=== PATIENT | female | born 1945 | race American Indian/Alaskan Native ===

== ENCOUNTER 2016-05-07 09:58 | Outpatient (CLI) | payer MEDICARE ==
[2016-05-07] MEDS ORDERED: XYLOCAINE TOPICAL 4% TP ONE (11:46)
== END 2016-05-07 09:59 | disposition home or self-care (01) ==
LOC: WOUND 09:58
PROVIDERS: ATTEND Orthopaedic Surgery
DX: E11.621 Type 2 diabetes mellitus with foot ulcer (principal); I87.312 Chronic venous hypertension (idiopathic) with ulcer of left lower extremity; L97.521 Non-pressure chronic ulcer of other part of left foot limited to breakdown of skin; L97.821 Non-pressure chronic ulcer of other part of left lower leg limited to breakdown of skin; F32.9 Major depressive disorder, single episode, unspecified; I10 Essential (primary) hypertension; M19.90 Unspecified osteoarthritis, unspecified site; Z86.718 Personal history of other venous thrombosis and embolism; Z87.891 Personal history of nicotine dependence
CPT/HCPCS: 82962; 87075; 87076; 87116; 87186

== ENCOUNTER 2016-05-11 13:02 | Emergency (ER) | payer MEDICARE ==
[2016-05-11 13:26] VITALS: BP 141/82
--- NOTE | 2016-05-11 15:32 | Emergency Department Report ---
ED ENT HPI - General Chief complaint: Sore Throat Stated complaint: SORE THROAT,SINUS Time Seen by Provider: 05/11/16 15:26 Source: patient Mode of arrival: Ambulatory Limitations: Physical Limitation - History of Present Illness Initial comments: 71 y/o female complain of sore throat from sinus drainage .pt state she constant has to clear her thought and cough when she lie down . complaint: sore throat Onset/Timin -: days(s) Location: throat Severity: mild Severity scale (0 -10): 3 Quality: aching Consistency: intermittent Improves with: none Worsens with: other (coughing ) - Related Data Home Medications Medication Instructions Recorded Confirmed Last Taken Allopurinol [Zyloprim] 300 mg ONCE 06/30/13 06/30/13 06/27/13 HYDROcodone/APAP 10-325 [[place] 500 mg PRN 06/30/13 06/30/13 06/29/13 10-325 mg TAB] Naproxen [Naprosyn] 500 mg PRN 06/30/13 06/30/13 06/29/13 Potassium Gluconate [Potassium 500 mg ONCE 06/30/13 06/30/13 06/27/13 Gluconate] Trazodone HCl [Trazodone HCl] 150 mg ONCE 06/30/13 06/30/13 06/28/13 Valsartan/Hydrochlorothiazide 5 mg ONCE 06/30/13 06/30/13 06/28/13 [Valsartan-Hctz 80-12.5 mg] Warfarin [Coumadin] 5 mg PO ONCE 06/30/13 06/30/13 06/26/13 glipiZIDE [glipiZIDE ER] 5 mg ONCE 06/30/13 06/30/13 06/28/13 Previous Rx's Medication Instructions Recorded Last Taken Type Naproxen [Naprosyn] 500 mg PO BID #30 tablet 09/27/13 Unknown Rx methOCARBAMOL [Robaxin] 500 mg PO BID #30 tab 09/27/13 Unknown Rx traMADol [Ultram 50 MG tab] 50 mg PO Q6HR PRN #20 tablet 09/27/13 Unknown Rx Amoxicillin/K Clav Tab [Augmentin 1 tab PO Q12HR #14 tab 05/11/16 Unknown Rx 875 mg] Allergies Allergy/AdvReac Type Severity Reaction Status Date / Time No Known Allergies Allergy Unverified 01/10/13 12:02 ED Dental HPI - General Chief complaint: Sore Throat Stated complaint: SORE THROAT,SINUS Time Seen by Provider: 05/11/16 15:26 Source: patient Mode of arrival: Ambulatory Limitations: Physical Limitation - Related Data Home Medications Medication Instructions Recorded Confirmed Last Taken Allopurinol [Zyloprim] 300 mg ONCE 06/30/13 06/30/13 06/27/13 HYDROcodone/APAP 10-325 [[place] 500 mg PRN 06/30/13 06/30/13 06/29/13 10-325 mg TAB] Naproxen [Naprosyn] 500 mg PRN 06/30/13 06/30/13 06/29/13 Potassium Gluconate [Potassium 500 mg ONCE 06/30/13 06/30/13 06/27/13 Gluconate] Trazodone HCl [Trazodone HCl] 150 mg ONCE 06/30/13 06/30/13 06/28/13 Valsartan/Hydrochlorothiazide 5 mg ONCE 06/30/13 06/30/13 06/28/13 [Valsartan-Hctz 80-12.5 mg] Warfarin [Coumadin] 5 mg PO ONCE 06/30/13 06/30/13 06/26/13 glipiZIDE [glipiZIDE ER] 5 mg ONCE 06/30/13 06/30/13 06/28/13 Previous Rx's Medication Instructions Recorded Last Taken Type Naproxen [Naprosyn] 500 mg PO BID #30 tablet 09/27/13 Unknown Rx methOCARBAMOL [Robaxin] 500 mg PO BID #30 tab 09/27/13 Unknown Rx traMADol [Ultram 50 MG tab] 50 mg PO Q6HR PRN #20 tablet 09/27/13 Unknown Rx Amoxicillin/K Clav Tab [Augmentin 1 tab PO Q12HR #14 tab 05/11/16 Unknown Rx 875 mg] Allergies Allergy/AdvReac Type Severity Reaction Status Date / Time No Known Allergies Allergy Unverified 01/10/13 12:02 ED Review of Systems ROS: Stated complaint: SORE THROAT,SINUS Other details as noted in HPI Constitutional: denies: chills, fever Eyes: denies: eye pain, eye discharge, vision change ENT: throat pain. denies: ear pain Respiratory: denies: cough, shortness of breath, wheezing Cardiovascular: denies: chest pain, palpitations Endocrine: no symptoms reported Gastrointestinal: denies: abdominal pain, nausea, diarrhea Genitourinary: denies: urgency, dysuria, discharge Musculoskeletal: denies: back pain, joint swelling, arthralgia Skin: denies: rash, lesions Neurological: denies: headache, weakness, paresthesias Psychiatric: denies: anxiety, depression Hematological/Lymphatic: denies: easy bleeding, easy bruising ED Past Medical Hx - Past Medical History Previous Medical History?: Yes Hx Hypertension: Yes Hx Diabetes: Yes (TYPE 2) - Surgical History Past Surgical History?: Yes Additional Surgical History: hysterectomy - Social History Smoking Status: Never Smoker Substance Use Type: Prescribed - Medications Home Medications: Home Medications Medication Instructions Recorded Confirmed Last Taken Type Allopurinol [Zyloprim] 300 mg ONCE 06/30/13 06/30/13 06/27/13 History HYDROcodone/APAP 10-325 [[place] 500 mg PRN 06/30/13 06/30/13 06/29/13 History 10-325 mg TAB] Naproxen [Naprosyn] 500 mg PRN 06/30/13 06/30/13 06/29/13 History Potassium Gluconate [Potassium 500 mg ONCE 06/30/13 06/30/13 06/27/13 History Gluconate] Trazodone HCl [Trazodone HCl] 150 mg ONCE 06/30/13 06/30/13 06/28/13 History Valsartan/Hydrochlorothiazide 5 mg ONCE 06/30/13 06/30/13 06/28/13 History [Valsartan-Hctz 80-12.5 mg] Warfarin [Coumadin] 5 mg PO ONCE 06/30/13 06/30/13 06/26/13 History glipiZIDE [glipiZIDE ER] 5 mg ONCE 06/30/13 06/30/13 06/28/13 History Naproxen [Naprosyn] 500 mg PO BID #30 tablet 09/27/13 Unknown Rx methOCARBAMOL [Robaxin] 500 mg PO BID #30 tab 09/27/13 Unknown Rx traMADol [Ultram 50 MG tab] 50 mg PO Q6HR PRN #20 tablet 09/27/13 Unknown Rx Amoxicillin/K Clav Tab [Augmentin 1 tab PO Q12HR #14 tab 05/11/16 Unknown Rx 875 mg] ED Physical Exam - General Limitations: Physical Limitation General appearance: alert, in no apparent distress - Head Head exam: Present: atraumatic, normocephalic - Eye Eye exam: Present: normal appearance, PERRL - ENT ENT exam: Present: mucous membranes moist - Expanded ENT Exam Expanded Ear exam: Present: normal external inspection TM/Canal exam: Mastoid Tenderness: Right TM, Left TM (maxillary ) Mouth exam: Present: normal external inspection. Absent: drooling, trismus, muffled voice Throat exam: Positive: other (post nasal drip ) - Neck Neck exam: Present: normal inspection - Respiratory Respiratory exam: Present: normal lung sounds bilaterally. Absent: respiratory distress, wheezes, rales - Cardiovascular Cardiovascular Exam: Present: regular rate, normal rhythm. Absent: systolic murmur, diastolic murmur, rubs, gallop - GI/Abdominal GI/Abdominal exam: Present: soft, normal bowel sounds - Extremities Exam Extremities exam: Present: normal inspection - Back Exam Back exam: Present: normal inspection, full ROM. Absent: tenderness, CVA tenderness (R), CVA tenderness (L), muscle spasm - Neurological Exam Neurological exam: Present: alert, oriented X3 - Psychiatric Psychiatric exam: Present: normal affect, normal mood - Skin Skin exam: Present: warm, dry, intact, normal color. Absent: rash ED Course Vital Signs 05/11/16 13:22 Temperature 97.8 F Pulse Rate 112 H Respiratory 20 Rate Blood Pressure 141/82 O2 Sat by Pulse 99 Oximetry ED Medical Decision Making - Medical Decision Making sinusitis Critical care attestation.: If time is entered above; I have spent that time in minutes in the direct care of this critically ill patient, excluding procedure time. ED Disposition Clinical Impression: Sinusitis Qualifiers: Sinusitis location: maxillary Chronicity: acute Recurrence: recurrent Qualified Code(s): J01.01 - Acute recurrent maxillary sinusitis Disposition: DISCHARGED TO HOME OR SELFCARE Is pt being admited?: No Does the pt Need Aspirin: No Condition: Stable Instructions: Sinusitis (ED) Prescriptions: Amoxicillin/K Clav Tab [Augmentin 875 mg] 1 tab PO Q12HR #14 tab Time of Disposition: 15:35
== END 2016-05-11 15:51 | disposition home or self-care (01) ==
LOC: ED 13:02
DX: J01.01 Acute recurrent maxillary sinusitis (principal); I10 Essential (primary) hypertension; E11.9 Type 2 diabetes mellitus without complications
CPT/HCPCS: 99282

== ENCOUNTER 2016-05-14 09:23 | Outpatient (CLI) | payer MEDICARE ==
[2016-05-14] MEDS ORDERED: XYLOCAINE TOPICAL 2% ONE (09:32)
[2016-05-14] MEDS ORDERED: SILVER NITRATE TP ONE ×3 (09:58→17:00)
[2016-05-14] MEDS ORDERED: XYLOCAINE TOPICAL 4% TP ONE (15:35)
[2016-05-14] MEDS ORDERED: XYLOCAINE TOPICAL 2% TP ONE (17:00)
== END 2016-05-14 09:24 | disposition home or self-care (01) ==
LOC: WOUND 09:23
PROVIDERS: ATTEND Orthopaedic Surgery
DX: E11.622 Type 2 diabetes mellitus with other skin ulcer (principal); L97.921 Non-pressure chronic ulcer of unspecified part of left lower leg limited to breakdown of skin; L97.521 Non-pressure chronic ulcer of other part of left foot limited to breakdown of skin; I10 Essential (primary) hypertension; M19.90 Unspecified osteoarthritis, unspecified site; F32.9 Major depressive disorder, single episode, unspecified; Z86.718 Personal history of other venous thrombosis and embolism; Z87.891 Personal history of nicotine dependence
CPT/HCPCS: 17250

== ENCOUNTER 2016-05-21 10:52 | Outpatient (CLI) | payer MEDICARE ==
[2016-05-21] MEDS ORDERED: XYLOCAINE TOPICAL 2% TP ONE ×2 (11:04→12:22)
[2016-05-21] MEDS ORDERED: XYLOCAINE TOPICAL 2% ONE ×2 (11:18→11:25)
== END 2016-05-21 10:53 | disposition home or self-care (01) ==
LOC: WOUND 10:52
PROVIDERS: ATTEND Orthopaedic Surgery
DX: E11.621 Type 2 diabetes mellitus with foot ulcer (principal); I87.312 Chronic venous hypertension (idiopathic) with ulcer of left lower extremity; L97.821 Non-pressure chronic ulcer of other part of left lower leg limited to breakdown of skin; L97.521 Non-pressure chronic ulcer of other part of left foot limited to breakdown of skin; I10 Essential (primary) hypertension; M19.90 Unspecified osteoarthritis, unspecified site; Z86.718 Personal history of other venous thrombosis and embolism; F32.9 Major depressive disorder, single episode, unspecified; Z87.891 Personal history of nicotine dependence
CPT/HCPCS: 29580

== ENCOUNTER 2016-05-28 10:56 | Outpatient (CLI) | payer MEDICARE ==
[2016-05-28] MEDS ORDERED: XYLOCAINE TOPICAL 2% ONE (11:01)
[2016-05-28] MEDS ORDERED: XYLOCAINE TOPICAL 2% TP ONE (13:18)
== END 2016-05-28 10:57 | disposition home or self-care (01) ==
LOC: WOUND 10:56
PROVIDERS: ATTEND Orthopaedic Surgery
DX: E11.622 Type 2 diabetes mellitus with other skin ulcer (principal); L97.821 Non-pressure chronic ulcer of other part of left lower leg limited to breakdown of skin; I10 Essential (primary) hypertension; M19.90 Unspecified osteoarthritis, unspecified site; F32.9 Major depressive disorder, single episode, unspecified; Z86.718 Personal history of other venous thrombosis and embolism; Z87.891 Personal history of nicotine dependence

== ENCOUNTER 2016-06-02 12:16 | Outpatient (CLI) | payer MEDICARE | END 2016-06-02 12:17 | disposition home or self-care (01) | LOC: WOUND 12:16 | PROVIDERS: ATTEND Internal Medicine | DX: E11.622 Type 2 diabetes mellitus with other skin ulcer (principal); I87.312 Chronic venous hypertension (idiopathic) with ulcer of left lower extremity; L97.821 Non-pressure chronic ulcer of other part of left lower leg limited to breakdown of skin; M19.90 Unspecified osteoarthritis, unspecified site; Z86.718 Personal history of other venous thrombosis and embolism; F32.9 Major depressive disorder, single episode, unspecified; Z87.891 Personal history of nicotine dependence | CPT/HCPCS: 29580; G0463; 99212 ==

== ENCOUNTER 2016-06-05 09:36 | Outpatient (CLI) | payer MEDICARE ==
[~2016-06-05 09:36] MED LIST: XYLOCAINE TOPICAL 2% ONE
[2016-06-05] MEDS ORDERED: XYLOCAINE TOPICAL 2% TP ONE (14:32)
== END 2016-06-05 09:37 | disposition home or self-care (01) ==
LOC: WOUND 09:36
PROVIDERS: ATTEND Internal Medicine
DX: E11.622 Type 2 diabetes mellitus with other skin ulcer (principal); I87.312 Chronic venous hypertension (idiopathic) with ulcer of left lower extremity; L97.821 Non-pressure chronic ulcer of other part of left lower leg limited to breakdown of skin; I87.2 Venous insufficiency (chronic) (peripheral); I10 Essential (primary) hypertension; E08.8 Diabetes mellitus due to underlying condition with unspecified complications; E66.01 Morbid (severe) obesity due to excess calories; M10.9 Gout, unspecified; Z86.718 Personal history of other venous thrombosis and embolism; F32.9 Major depressive disorder, single episode, unspecified; Z87.891 Personal history of nicotine dependence

== ENCOUNTER 2016-06-09 09:29 | Outpatient (CLI) | payer MEDICARE | END 2016-06-09 09:30 | disposition home or self-care (01) | LOC: WOUND 09:29 | PROVIDERS: ATTEND Internal Medicine | DX: E11.622 Type 2 diabetes mellitus with other skin ulcer (principal); I87.312 Chronic venous hypertension (idiopathic) with ulcer of left lower extremity; L97.821 Non-pressure chronic ulcer of other part of left lower leg limited to breakdown of skin; I87.2 Venous insufficiency (chronic) (peripheral); E66.01 Morbid (severe) obesity due to excess calories; M19.90 Unspecified osteoarthritis, unspecified site; F32.9 Major depressive disorder, single episode, unspecified; Z86.718 Personal history of other venous thrombosis and embolism; Z87.891 Personal history of nicotine dependence ==

== ENCOUNTER 2016-06-16 09:27 | Outpatient (CLI) | payer MEDICARE ==
[2016-06-16] MEDS ORDERED: XYLOCAINE TOPICAL 4% TP ONE ×2 (10:58→11:03)
== END 2016-06-16 09:28 | disposition home or self-care (01) ==
LOC: WOUND 09:27
PROVIDERS: ATTEND Internal Medicine
DX: I87.312 Chronic venous hypertension (idiopathic) with ulcer of left lower extremity (principal); E11.622 Type 2 diabetes mellitus with other skin ulcer; L97.921 Non-pressure chronic ulcer of unspecified part of left lower leg limited to breakdown of skin; E11.40 Type 2 diabetes mellitus with diabetic neuropathy, unspecified; E66.01 Morbid (severe) obesity due to excess calories; M19.90 Unspecified osteoarthritis, unspecified site; F32.9 Major depressive disorder, single episode, unspecified; Z86.718 Personal history of other venous thrombosis and embolism; Z87.891 Personal history of nicotine dependence

== ENCOUNTER 2016-06-19 10:53 | Outpatient (CLI) | payer MEDICARE | END 2016-06-19 10:54 | disposition home or self-care (01) | LOC: WOUND 10:53 | PROVIDERS: ATTEND Internal Medicine | DX: I87.312 Chronic venous hypertension (idiopathic) with ulcer of left lower extremity (principal); E11.622 Type 2 diabetes mellitus with other skin ulcer; L97.821 Non-pressure chronic ulcer of other part of left lower leg limited to breakdown of skin; M19.90 Unspecified osteoarthritis, unspecified site; F32.9 Major depressive disorder, single episode, unspecified; Z86.718 Personal history of other venous thrombosis and embolism; Z87.891 Personal history of nicotine dependence | CPT/HCPCS: 29581; G0463; 99215 ==

== ENCOUNTER 2016-06-23 09:17 | Outpatient (CLI) | payer MEDICARE ==
[2016-06-23] MEDS ORDERED: XYLOCAINE TOPICAL 4% TP ONE ×2 (10:27→10:30)
== END 2016-06-23 09:18 | disposition home or self-care (01) ==
LOC: WOUND 09:17
PROVIDERS: ATTEND Internal Medicine
DX: E11.622 Type 2 diabetes mellitus with other skin ulcer (principal); L97.821 Non-pressure chronic ulcer of other part of left lower leg limited to breakdown of skin; I87.2 Venous insufficiency (chronic) (peripheral); I10 Essential (primary) hypertension; E66.01 Morbid (severe) obesity due to excess calories; E11.40 Type 2 diabetes mellitus with diabetic neuropathy, unspecified; F32.9 Major depressive disorder, single episode, unspecified; M19.90 Unspecified osteoarthritis, unspecified site; Z86.718 Personal history of other venous thrombosis and embolism; Z87.891 Personal history of nicotine dependence
CPT/HCPCS: 11055

== ENCOUNTER 2016-06-30 09:02 | Outpatient (CLI) | payer MEDICARE ==
[2016-06-30] MEDS ORDERED: XYLOCAINE TOPICAL 4% TP ONE ×2 (10:06→10:26)
== END 2016-06-30 09:03 | disposition home or self-care (01) ==
LOC: WOUND 09:02
PROVIDERS: ATTEND Internal Medicine
DX: E11.622 Type 2 diabetes mellitus with other skin ulcer (principal); I87.312 Chronic venous hypertension (idiopathic) with ulcer of left lower extremity; L97.821 Non-pressure chronic ulcer of other part of left lower leg limited to breakdown of skin; E66.01 Morbid (severe) obesity due to excess calories; M19.90 Unspecified osteoarthritis, unspecified site; Z86.718 Personal history of other venous thrombosis and embolism; F32.9 Major depressive disorder, single episode, unspecified; Z87.891 Personal history of nicotine dependence
CPT/HCPCS: 29581

== ENCOUNTER 2016-07-14 10:10 | Outpatient (CLI) | payer MEDICARE ==
[2016-07-14] MEDS ORDERED: XYLOCAINE TOPICAL 4% TP ONE ×2 (10:19→10:42)
== END 2016-07-14 10:11 | disposition home or self-care (01) ==
LOC: WOUND 10:10
PROVIDERS: ATTEND Internal Medicine
DX: E11.621 Type 2 diabetes mellitus with foot ulcer (principal); I87.312 Chronic venous hypertension (idiopathic) with ulcer of left lower extremity; L97.821 Non-pressure chronic ulcer of other part of left lower leg limited to breakdown of skin; E66.01 Morbid (severe) obesity due to excess calories; M19.90 Unspecified osteoarthritis, unspecified site; F32.9 Major depressive disorder, single episode, unspecified; Z86.718 Personal history of other venous thrombosis and embolism; Z87.891 Personal history of nicotine dependence
CPT/HCPCS: 29580

== ENCOUNTER 2016-07-21 09:14 | Outpatient (CLI) | payer MEDICARE ==
[2016-07-21] MEDS ORDERED: XYLOCAINE TOPICAL 4% TP ONE (11:00)
== END 2016-07-21 09:15 | disposition home or self-care (01) ==
LOC: WOUND 09:14
PROVIDERS: ATTEND Internal Medicine
DX: I87.312 Chronic venous hypertension (idiopathic) with ulcer of left lower extremity (principal); E11.622 Type 2 diabetes mellitus with other skin ulcer; L97.821 Non-pressure chronic ulcer of other part of left lower leg limited to breakdown of skin; E66.01 Morbid (severe) obesity due to excess calories; M19.90 Unspecified osteoarthritis, unspecified site; F32.9 Major depressive disorder, single episode, unspecified; E11.40 Type 2 diabetes mellitus with diabetic neuropathy, unspecified; Z86.718 Personal history of other venous thrombosis and embolism; Z87.891 Personal history of nicotine dependence
CPT/HCPCS: 29581

== ENCOUNTER 2016-08-18 11:25 | Outpatient (CLI) | payer MEDICARE ==
[2016-08-18] MEDS ORDERED: XYLOCAINE TOPICAL 2% ONE (11:29)
== END 2016-08-18 11:26 | disposition home or self-care (01) ==
LOC: WOUND 11:25
PROVIDERS: ATTEND Internal Medicine
DX: I87.312 Chronic venous hypertension (idiopathic) with ulcer of left lower extremity (principal); E11.622 Type 2 diabetes mellitus with other skin ulcer; L97.821 Non-pressure chronic ulcer of other part of left lower leg limited to breakdown of skin; M19.90 Unspecified osteoarthritis, unspecified site; E66.01 Morbid (severe) obesity due to excess calories; F32.9 Major depressive disorder, single episode, unspecified; Z86.718 Personal history of other venous thrombosis and embolism; Z87.891 Personal history of nicotine dependence

== ENCOUNTER 2016-08-28 09:57 | Outpatient (CLI) | payer MEDICARE ==
[2016-08-28] MEDS ORDERED: XYLOCAINE TOPICAL 4% TP ONE ×2 (10:10→10:38)
[2016-08-28] MEDS ORDERED: AD OINTMENT TP ONE (11:15)
== END 2016-08-28 09:58 | disposition home or self-care (01) ==
LOC: WOUND 09:57
PROVIDERS: ATTEND Nurse Practitioner
DX: E11.622 Type 2 diabetes mellitus with other skin ulcer (principal); I87.312 Chronic venous hypertension (idiopathic) with ulcer of left lower extremity; L97.821 Non-pressure chronic ulcer of other part of left lower leg limited to breakdown of skin; E66.01 Morbid (severe) obesity due to excess calories; I87.2 Venous insufficiency (chronic) (peripheral); I10 Essential (primary) hypertension; F32.9 Major depressive disorder, single episode, unspecified; E11.40 Type 2 diabetes mellitus with diabetic neuropathy, unspecified; M19.90 Unspecified osteoarthritis, unspecified site; Z86.718 Personal history of other venous thrombosis and embolism; Z87.891 Personal history of nicotine dependence
CPT/HCPCS: A6250

== ENCOUNTER 2016-09-01 10:04 | Outpatient (CLI) | payer MEDICARE ==
[2016-09-01] MEDS ORDERED: XYLOCAINE TOPICAL 4% TP ONE ×2 (10:34→14:51)
== END 2016-09-01 10:05 | disposition home or self-care (01) ==
LOC: WOUND 10:04
PROVIDERS: ATTEND Internal Medicine
DX: I87.312 Chronic venous hypertension (idiopathic) with ulcer of left lower extremity (principal); E11.622 Type 2 diabetes mellitus with other skin ulcer; L97.821 Non-pressure chronic ulcer of other part of left lower leg limited to breakdown of skin; I10 Essential (primary) hypertension; E66.01 Morbid (severe) obesity due to excess calories; F32.9 Major depressive disorder, single episode, unspecified; M19.90 Unspecified osteoarthritis, unspecified site; M10.9 Gout, unspecified; Z86.718 Personal history of other venous thrombosis and embolism; Z90.710 Acquired absence of both cervix and uterus

== ENCOUNTER 2016-09-19 10:42 | Outpatient (CLI) | payer MEDICARE ==
[2016-09-19] MEDS ORDERED: XYLOCAINE TOPICAL 2% ONE (11:36)
[2016-09-19] MEDS ORDERED: XYLOCAINE TOPICAL 2% TP ONE (13:28)
== END 2016-09-19 10:43 | disposition home or self-care (01) ==
LOC: WOUND 10:42
PROVIDERS: ATTEND Podiatrist
DX: I87.312 Chronic venous hypertension (idiopathic) with ulcer of left lower extremity (principal); E11.622 Type 2 diabetes mellitus with other skin ulcer; L97.822 Non-pressure chronic ulcer of other part of left lower leg with fat layer exposed; E66.01 Morbid (severe) obesity due to excess calories; E11.40 Type 2 diabetes mellitus with diabetic neuropathy, unspecified; F32.9 Major depressive disorder, single episode, unspecified; M19.90 Unspecified osteoarthritis, unspecified site; Z68.41 Body mass index [BMI] 40.0-44.9, adult; Z86.718 Personal history of other venous thrombosis and embolism; Z87.891 Personal history of nicotine dependence

== ENCOUNTER 2016-09-30 11:47 | Outpatient (CLI) | payer MEDICARE ==
[~2016-09-30 11:47] MED LIST changes: -XYLOCAINE TOPICAL 2% ONE; +XYLOCAINE TOPICAL 4% TP ONE
[2016-09-30] MEDS ORDERED: XYLOCAINE TOPICAL 4% TP ONE (12:00)
[2016-09-30] MEDS ORDERED: SILVER NITRATE TP ONE ×2 (12:01)
[2016-09-30] MEDS ORDERED: AD OINTMENT TP ONE (12:07)
[2016-09-30] MEDS ORDERED: AD OINTMENT TP SCH (13:00)
== END 2016-09-30 11:48 | disposition home or self-care (01) ==
LOC: WOUND 11:47
PROVIDERS: ATTEND Surgery
DX: I87.312 Chronic venous hypertension (idiopathic) with ulcer of left lower extremity (principal); E11.622 Type 2 diabetes mellitus with other skin ulcer; L97.822 Non-pressure chronic ulcer of other part of left lower leg with fat layer exposed; M19.90 Unspecified osteoarthritis, unspecified site; F32.9 Major depressive disorder, single episode, unspecified; Z87.891 Personal history of nicotine dependence; Z86.718 Personal history of other venous thrombosis and embolism
CPT/HCPCS: 17250; 29580; A6250

== ENCOUNTER 2016-10-13 10:43 | Outpatient (CLI) | payer MEDICARE ==
[2016-10-13] MEDS ORDERED: XYLOCAINE TOPICAL 2% TP ONE (11:18)
[2016-10-13] MEDS ORDERED: XYLOCAINE TOPICAL 2% ONE (11:19)
== END 2016-10-13 10:44 | disposition home or self-care (01) ==
LOC: WOUND 10:43
PROVIDERS: ATTEND Internal Medicine
DX: I87.312 Chronic venous hypertension (idiopathic) with ulcer of left lower extremity (principal); E11.622 Type 2 diabetes mellitus with other skin ulcer; L97.822 Non-pressure chronic ulcer of other part of left lower leg with fat layer exposed; E11.40 Type 2 diabetes mellitus with diabetic neuropathy, unspecified; M19.90 Unspecified osteoarthritis, unspecified site; E66.01 Morbid (severe) obesity due to excess calories; F32.9 Major depressive disorder, single episode, unspecified; Z68.41 Body mass index [BMI] 40.0-44.9, adult; Z86.718 Personal history of other venous thrombosis and embolism; Z87.891 Personal history of nicotine dependence

== ENCOUNTER 2016-10-31 10:25 | Outpatient (CLI) | payer MEDICARE ==
[2016-10-31] MEDS ORDERED: XYLOCAINE TOPICAL 4% TP ONE (10:57)
== END 2016-10-31 10:26 | disposition home or self-care (01) ==
LOC: WOUND 10:25
PROVIDERS: ATTEND Podiatrist
DX: I87.312 Chronic venous hypertension (idiopathic) with ulcer of left lower extremity (principal); L97.822 Non-pressure chronic ulcer of other part of left lower leg with fat layer exposed; E11.622 Type 2 diabetes mellitus with other skin ulcer; E11.40 Type 2 diabetes mellitus with diabetic neuropathy, unspecified; E66.01 Morbid (severe) obesity due to excess calories; F32.9 Major depressive disorder, single episode, unspecified; M19.90 Unspecified osteoarthritis, unspecified site; Z68.41 Body mass index [BMI] 40.0-44.9, adult; Z86.718 Personal history of other venous thrombosis and embolism; Z90.710 Acquired absence of both cervix and uterus; Z87.891 Personal history of nicotine dependence

== ENCOUNTER 2016-11-10 09:49 | Outpatient (CLI) | payer MEDICARE ==
[2016-11-10] MEDS ORDERED: XYLOCAINE TOPICAL 4% TP ONE ×2 (10:33→10:34)
[2016-11-10] MEDS ORDERED: AD OINTMENT TP ONE (11:15)
[2016-11-11] MEDS ORDERED: AD OINTMENT TP PRN (14:33)
== END 2016-11-10 09:50 | disposition home or self-care (01) ==
LOC: WOUND 09:49
PROVIDERS: ATTEND Internal Medicine
DX: I87.312 Chronic venous hypertension (idiopathic) with ulcer of left lower extremity (principal); E11.622 Type 2 diabetes mellitus with other skin ulcer; L97.822 Non-pressure chronic ulcer of other part of left lower leg with fat layer exposed; E66.01 Morbid (severe) obesity due to excess calories; F32.9 Major depressive disorder, single episode, unspecified; M19.90 Unspecified osteoarthritis, unspecified site; Z68.41 Body mass index [BMI] 40.0-44.9, adult; Z90.710 Acquired absence of both cervix and uterus; Z86.718 Personal history of other venous thrombosis and embolism
CPT/HCPCS: A6250

== ENCOUNTER 2016-11-20 10:37 | Outpatient (CLI) | payer MEDICARE ==
[2016-11-20] MEDS ORDERED: XYLOCAINE TOPICAL 4% TP ONE ×2 (11:01→12:58)
== END 2016-11-20 10:38 | disposition home or self-care (01) ==
LOC: WOUND 10:37
PROVIDERS: ATTEND Nurse Practitioner
DX: I87.312 Chronic venous hypertension (idiopathic) with ulcer of left lower extremity (principal); E11.622 Type 2 diabetes mellitus with other skin ulcer; L97.822 Non-pressure chronic ulcer of other part of left lower leg with fat layer exposed; E66.01 Morbid (severe) obesity due to excess calories; E11.40 Type 2 diabetes mellitus with diabetic neuropathy, unspecified; M19.90 Unspecified osteoarthritis, unspecified site; F32.9 Major depressive disorder, single episode, unspecified; Z68.39 Body mass index [BMI] 39.0-39.9, adult; Z86.718 Personal history of other venous thrombosis and embolism; Z90.710 Acquired absence of both cervix and uterus; Z87.891 Personal history of nicotine dependence

== ENCOUNTER 2016-11-20 15:50 | Emergency (ER) | payer MEDICARE ==
[2016-11-20] MEDS ORDERED: NORCO 5/325 PO ONE (19:30)
[2016-11-20] MEDS ORDERED: VALIUM PO ONE (19:30)
--- NOTE | 2016-11-20 19:30 | Emergency Department Report ---
ED Fall HPI - General Chief Complaint: Fall Stated Complaint: FELL/BILAT KNEE PAIN Time Seen by Provider: 11/20/16 19:23 Source: patient, family Mode of arrival: Wheelchair Limitations: Physical Limitation (patient walks with a cane) - History of Present Illness Initial Comments: Patient here reports that she fell while at wound care center out of her bed. She says she was having her left leg ulcer debridement and she fell out of the bed. This happened last night and she says she landed on both her knees and thighs. Patient is complaining of bilateral knee pain and bilateral thigh pain that is 10 out of 10. She's taken multiple pain medication but she says she is not getting any relief. Pain is achy. She has a history of chronic arthritis generalized. Denies any skin abrasions. Denies any head injury. Denies any headache or nausea or vomiting. She says she is unable to walk as usual. She usually walks with a cane. Patient came to the emergency room in a wheelchair. Denies any numbness or tingling to extremities. Denies any back pain. Denies any urinary frequency or urgency. Denies any fever or chills. She has chronic ulcer to left lower extremity from diabetes. MD Complaint: fall -: Last night Fall From: out of bed When Fall Occurred: # days PHOTO [employer] (1) Fall Witnessed: yes, by bystander Place Fall Occurred: other (wound care center) Loss of Consciousness: none Prolonged Down Time?: no Symptoms Prior to Fall: none Location - Extremities: Left: Thigh (pain from fall), Knee (painful from fall), Right: Thigh, Knee Severity: severe Severity scale (0 -10): 10 Quality: aching Context: other (fell out of bed) Associated Symptoms: denies: headache, neck pain, numbness, weakness, chest paint, shortness of breath, abdominal pain, hematuria, unable to walk, lightheaded, vertigo, confusion - Related Data Home Medications Medication Instructions Recorded Confirmed Last Taken Allopurinol [Zyloprim] 300 mg ONCE 06/30/13 06/30/13 06/27/13 Trazodone HCl [Trazodone HCl] 150 mg ONCE 06/30/13 06/30/13 06/28/13 Valsartan/Hydrochlorothiazide 5 mg ONCE 06/30/13 06/30/1314 [Valsartan-Hctz 80-12.5 mg] Warfarin [Coumadin] 5 mg PO ONCE 06/30/13 06/30/13 06/26/13 glipiZIDE [glipiZIDE ER] 5 mg ONCE 06/30/13 06/30/13 06/28/13 Previous Rx's Medication Instructions Recorded Last Taken Type Naproxen [Naprosyn] 500 mg PO BID #30 tablet 09/27/13 Unknown Rx methOCARBAMOL [Robaxin] 500 mg PO BID #30 tab 09/27/13 Unknown Rx Amoxicillin/K Clav Tab [Augmentin 1 tab PO Q12HR #14 tab 05/11/16 Unknown Rx 875 mg] HYDROcodone/APAP 5-325 [[place] 1 each PO Q6HR PRN #8 tablet 11/20/16 Unknown Rx 5/325] traMADol [Ultram 50 MG tab] 50 mg PO Q6HR PRN #20 tablet 11/20/16 Unknown Rx Allergies Allergy/AdvReac Type Severity Reaction Status Date / Time No Known Allergies Allergy Verified 11/20/16 16:20 ED Review of Systems ROS: Stated complaint: FELL/BILAT KNEE PAIN Other details as noted in HPI Comment: All other systems reviewed and negative Constitutional: denies: chills, fever ENT: denies: throat pain Respiratory: no symptoms reported Cardiovascular: denies: chest pain, palpitations, edema, syncope Gastrointestinal: denies: abdominal pain, nausea, vomiting, diarrhea, constipation Genitourinary: denies: urgency, dysuria, frequency, hematuria, discharge Musculoskeletal: arthralgia. denies: back pain, joint swelling, myalgia Skin: denies: rash Neurological: abnormal gait (lateral lower extremity which is chronic). denies : headache, weakness, numbness, paresthesias, confusion, vertigo Psychiatric: anxiety ED Past Medical Hx - Past Medical History Previous Medical History?: Yes Hx Hypertension: Yes Hx Diabetes: Yes (TYPE 2) Hx Arthritis: Yes Hx Psychiatric Treatment: Yes (DEPRESSION) Additional medical history: GOUT - Surgical History Past Surgical History?: Yes Additional Surgical History: hysterectomy - Family History Family history: diabetes, hypertension - Social History Smoking Status: Former Smoker Substance Use Type: Prescribed - Medications Home Medications: Home Medications Medication Instructions Recorded Confirmed Last Taken Type Allopurinol [Zyloprim] 300 mg ONCE 06/30/13 06/30/13 06/27/13 History Trazodone HCl [Trazodone HCl] 150 mg ONCE 06/30/13 06/30/13 06/28/13 History Valsartan/Hydrochlorothiazide 5 mg ONCE 06/30/13 06/30/13 06/28/13 History [Valsartan-Hctz 80-12.5 mg] Warfarin [Coumadin] 5 mg PO ONCE 06/30/13 06/30/13 06/26/13 History glipiZIDE [glipiZIDE ER] 5 mg ONCE 06/30/13 06/30/13 06/28/13 History Naproxen [Naprosyn] 500 mg PO BID #30 tablet 09/27/13 Unknown Rx methOCARBAMOL [Robaxin] 500 mg PO BID #30 tab 09/27/13 Unknown Rx Amoxicillin/K Clav Tab [Augmentin 1 tab PO Q12HR #14 tab 05/11/16 Unknown Rx 875 mg] HYDROcodone/APAP 5-325 [[place] 1 each PO Q6HR PRN #8 tablet 11/20/16 Unknown Rx 5/325] traMADol [Ultram 50 MG tab] 50 mg PO Q6HR PRN #20 tablet 11/20/16 Unknown Rx ED Physical Exam - General Limitations: Physical Limitation General appearance: alert, in no apparent distress - Head Head exam: Present: atraumatic, normocephalic, normal inspection - Expanded Head Exam Expanded Head exam: Absent: laceration, abrasion, contusion, hematoma, racoon eyes, blas's sign, general tenderness, tenderness of temporal artery, CSF rhinorrhea , CSF otorrhea - Eye Eye exam: Present: normal appearance, PERRL, EOMI. Absent: nystagmus, periorbital swelling, periorbital tenderness Pupils: Present: normal accommodation - ENT ENT exam: Present: normal exam, normal orophraynx, mucous membranes moist - Neck Neck exam: Present: normal inspection, full ROM. Absent: tenderness, meningismus, lymphadenopathy - Respiratory Respiratory exam: Present: normal lung sounds bilaterally. Absent: respiratory distress, chest wall tenderness - Cardiovascular Cardiovascular Exam: Present: regular rate, normal rhythm, normal heart sounds - GI/Abdominal GI/Abdominal exam: Present: soft, normal bowel sounds. Absent: distended, tenderness, guarding, rebound, rigid - Extremities Exam Extremities exam: Present: normal inspection, full ROM (full range of motion to all extremities but she said it's painful to move her knees and her thighs.), tenderness (knee and size), normal capillary refill. Absent: pedal edema, joint swelling, calf tenderness - Expanded Lower Extremity Exam Left Hip exam: Present: normal inspection, full ROM, pelvic stability. Absent: tenderness, swelling, abrasion, laceration, ecchymosis, crepidus, dislocation, erythema, external rotation, internal rotation, shortening Upper Leg exam: Present: normal inspection, full ROM. Absent: tenderness, swelling, abrasion, laceration, ecchymosis, deformity, crepidus, dislocation, erythema Knee exam: Present: normal inspection, full ROM (range of motion to the knee but she said it is painful when she flexes and extends), tenderness (Kristen), full knee extension (painful with flexion and extension). Absent: swelling, abrasion, laceration, ecchymosis, deformity, crepidus, dislocation, erythema, effusion, pain w/ pronation/supination Lower Leg exam: Present: normal inspection, full ROM. Absent: tenderness, swelling, abrasion, laceration, ecchymosis, deformity, crepidus, dislocation, erythema, palpable cord, Bisi's sign Ankle exam: Present: normal inspection, full ROM. Absent: tenderness, swelling , abrasion, laceration, ecchymosis, deformity, crepidus, dislocation, erythema Foot/Toe exam: Present: normal inspection, full ROM. Absent: tenderness, swelling, abrasion, laceration, ecchymosis, deformity, crepidus, dislocation, erythema, amputation, puncture wound, foreign body, calcaneal tenderness, tenderness at base of 5th metatarsal, nail avulsion, subungual hematoma Neuro vascular tendon exam: Present: no vascular compromise. Absent: pulse deficit, abnormal cap refill, motor deficit, sensory deficit, tendon deficit, extremity cold to touch, pallor, abnormal 2-point discrimination, decreased fine /light touch, foot drop, peroneal nerve deficit, significant pain with passive ROM of distal joint Gait: Positive: observed and limited by pain Right Hip exam: Present: normal inspection, full ROM, pelvic stability. Absent: tenderness, swelling, abrasion, laceration, ecchymosis, deformity, crepidus, dislocation, erythema, external rotation, internal rotation, shortening Upper Leg exam: Present: normal inspection, full ROM (patient with full range of motion to extremity but she uses walking aids and said it's painful.), tenderness (data palpate to thigh.). Absent: swelling, abrasion, laceration, ecchymosis, deformity, crepidus, dislocation, erythema Knee exam: Present: normal inspection, full ROM (full flexion and extension of knee but patient reports pain with movement), tenderness (and to palpate the right knee), full knee extension (painful with extension and flexion). Absent: swelling, abrasion, laceration, ecchymosis, deformity, crepidus, dislocation, erythema, effusion, pain w/ pronation/supination Lower Leg exam: Present: normal inspection, full ROM. Absent: tenderness, swelling, abrasion, laceration, ecchymosis, deformity, crepidus, dislocation, erythema, palpable cord, Bisi's sign Ankle exam: Present: normal inspection, full ROM. Absent: tenderness, swelling , abrasion, laceration, ecchymosis, deformity, crepidus Foot/Toe exam: Present: normal inspection, full ROM. Absent: tenderness, swelling, abrasion, ecchymosis, deformity, crepidus, dislocation, erythema, amputation, puncture wound, foreign body, calcaneal tenderness, tenderness at base of 5th metatarsal, nail avulsion, subungual hematoma Neuro vascular tendon exam: Present: no vascular compromise. Absent: pulse deficit, abnormal cap refill, motor deficit, sensory deficit, tendon deficit, extremity cold to touch, pallor, abnormal 2-point discrimination, decreased fine /light touch, foot drop, peroneal nerve deficit, significant pain with passive ROM of distal joint Gait: Positive: observed and limited by pain - Back Exam Back exam: Present: normal inspection, full ROM. Absent: tenderness, CVA tenderness (R), CVA tenderness (L), muscle spasm, paraspinal tenderness, vertebral tenderness, rash noted - Neurological Exam Neurological exam: Present: alert, oriented X3, abnormal gait (patient with abnormal gait to bilateral lower extremity due to pain to both knees and thigh) . Absent: reflexes normal - Psychiatric Psychiatric exam: Present: normal affect, normal mood - Skin Skin exam: Present: warm, dry, intact, normal color. Absent: rash ED Course Vital Signs 11/20/16 16:23 Temperature 97.6 F Pulse Rate 79 Respiratory 18 Rate Blood Pressure 146/102 O2 Sat by Pulse 100 Oximetry Vital Signs 11/20/16 11/20/16 16:23 21:45 Temperature 97.6 F 97.9 F Pulse Rate 79 99 H Respiratory 18 20 Rate Blood Pressure 146/102 Blood Pressure 159/107 [Right] O2 Sat by Pulse 100 96 Oximetry - Reevaluation(s) Reevaluation #1: 11/20/16 21:20 She given [place] 5/325 2 tablets and Valium 5 mg by mouth for pain and anxiety which relieved both. - Orthopedic Splinting/Casting Injury #1 Side: right Lower Extremity Injury Location: upper leg, knee Other Orthopedic Equipment: crutches Injury #2 Side: left Lower Extremity Injury Location: upper leg, knee Other Orthopedic Equipment: crutches ED Medical Decision Making - Radiology Data Radiology results: report reviewed X-ray of bilateral knee revealed no acute fracture or dislocation patient with severe arthritis to both knees no acute bony or soft tissue abnormalities seen. X-ray of femur reported no evidence of acute fracture or dislocation and no soft tissue swelling or radiopaque foreign bodies are seen , - Medical Decision Making ED course: Patient here complaining that she fell last night at wound care center while here to get her wound care to left lower extremity. She says she fell out of bed and denies hitting her head or losing consciousness. Pain is located to both thighs and knees and not relieved with any pain medication that she takes at home. With mild anxiety and she was given Valium 5 mg by mouth and [place] 5/325 2 tablets by mouth in emergency room which relieved her pain. Patient with chronic pain from severe arthritis to multiple joints. She has severe arthritis of both her knees and has been seen here in the past for pain management. Diagnostic and labs: X-ray of both thighs and both knees reveals no acute bony abnormalities she does have moderate to severe arthritis to her knees. Review of previous visits: Review of visit noted patient treated multiple times for pain due to arthritis. Assessment: Anxiety, Arthralgia multiple sites, accidental fall out of bed, acute exacerbation of chronic pain syndrome, chronic pain syndrome, arthritis, elevated blood pressure read in with diagnosis of hypertension . Plan follow-up: Patient given Valium 5 mg for anxiety and [place] 5/325 2 tablets by mouth for pain in emergency room which she is calm. Patient blood pressure is elevated upon arrival and diastolic remains elevated. she'll take her blood pressure medication when she goes home. I discussed the patient that I' ll refer her to Dr. You who is orthopedic doctor. Says she usually takes hydrocodone for pain she is out of it. She has taken tramadol in the past so I agreed that I will put her on tramadol and give her a couple days of hydrocodone for severe pain. She is ambulated with crutches without any difficulties and says she feels much better. Critical care attestation.: If time is entered above; I have spent that time in minutes in the direct care of this critically ill patient, excluding procedure time. ED Disposition Clinical Impression: Arthralgia of multiple sites, Anxiety about health, Elevated systolic blood pressure reading with diagnosis of hypertension Accidental fall from bed Qualifiers: Encounter type: initial encounter Qualified Code(s): W06.XXXA - Fall from bed, initial encounter Osteoarthritis Qualifiers: Osteoarthritis location: multiple joints Osteoarthritis type: unspecified Qualified Code(s): M15.9 - Polyosteoarthritis, unspecified Disposition: PAT REG,TRIAGED-NO MSE Is pt being admited?: No Does the pt Need Aspirin: No Condition: Stable Instructions: Hypertension (ED), Anxiety (ED), Self-Care Measures with a Chronic Disease (ED), Fall Prevention for Older Adults (ED) Additional Instructions: Please follow up with primary care as recommended Increase fluid intake Take medication as prescribed . please do not drive or operate heavy machinery while taking [place] as this medication will cause drowsiness these medications. Referred to discharge instruction on splint care. Please use crutches until you're seen by orthopedic doctor Referred to discharge instruction in [place] therapy. These follow-up with orthopedic doctor as instructed. Prescriptions: HYDROcodone/APAP 5-325 [[place] 5/325] 1 each PO Q6HR PRN #8 tablet PRN Reason: Pain traMADol [Ultram 50 MG tab] 50 mg PO Q6HR PRN #20 tablet PRN Reason: Pain Referrals: CHRIS PEPPER MD [Primary Care Provider] - 11/24/16 KATELYN YOU MD [Staff Physician] - 11/24/16 Forms: Accompanied Note
--- NOTE | 2016-11-20 20:48 | XRay Report ---
FINAL REPORT EXAM: XR FEMUR BILAT 2+V HISTORY: pain in thigh after falling TECHNIQUE: AP and lateral views of the right femur PRIORS: None. FINDINGS: There is no evidence for acute fracture or dislocation. No soft tissue swelling or radiopaque foreign bodies are seen. Severe osteoarthritic degenerative changes at the knee joint are seen. There is severe narrowing of both medial and lateral joint compartments and moderate to severe narrowing of the patellofemoral joint. Huge bony spurs are present at all 3 joints and subchondral cyst formation is seen in the distal femur and proximal tibia. IMPRESSION: No acute bony or soft tissue abnormality noted. Severe tricompartmental osteoarthritis of the knee.
--- NOTE | 2016-11-20 20:50 | XRay Report ---
FINAL REPORT EXAM: XR KNEE BILAT 3V HISTORY: fall with pain in knees TECHNIQUE: AP, oblique, and lateral views of each knee PRIORS: None. FINDINGS: No acute fracture or dislocation is seen. The soft tissues are unremarkable with no evidence for suprapatellar joint effusion. Both knees have a mild varus alignment. There are severe osteoarthritic changes present in both knees. Bilateral severe medial joint compartment narrowing, moderate severe the lateral joint compartment narrowing, and moderate patellofemoral joint space narrowing is present bilaterally. Large bony spurs and subchondral cyst formations bilaterally are noted around both knee joints. IMPRESSION: No acute abnormality of either knee. Severe osteoarthritic changes in both knees.
[2016-11-20 21:46] VITALS: BP 159/107
== END 2016-11-20 22:13 | disposition left against medical advice (07) ==
LOC: ED 15:50
DX: M79.651 Pain in right thigh (principal); M25.562 Pain in left knee; M79.652 Pain in left thigh; M25.561 Pain in right knee; I10 Essential (primary) hypertension; M15.9 Polyosteoarthritis, unspecified; F41.9 Anxiety disorder, unspecified; E11.9 Type 2 diabetes mellitus without complications; F32.9 Major depressive disorder, single episode, unspecified; M19.90 Unspecified osteoarthritis, unspecified site; M10.9 Gout, unspecified; G89.4 Chronic pain syndrome; Z79.01 Long term (current) use of anticoagulants; Z87.891 Personal history of nicotine dependence; W06.XXXA Fall from bed, initial encounter; Y93.89 Activity, other specified; Y99.8 Other external cause status; Y92.89 Other specified places as the place of occurrence of the external cause

== ENCOUNTER 2016-12-29 10:39 | Outpatient (CLI) | payer MEDICARE ==
[2016-12-29] MEDS ORDERED: XYLOCAINE TOPICAL 2% ONE (10:41)
[2016-12-29] MEDS ORDERED: XYLOCAINE TOPICAL 2% TP ONE (10:50)
[2016-12-29] MEDS ORDERED: XYLOCAINE TOPICAL 4% TP ONE (10:52)
== END 2016-12-29 10:40 | disposition home or self-care (01) ==
LOC: WOUND 10:39
PROVIDERS: ATTEND Internal Medicine
DX: I87.312 Chronic venous hypertension (idiopathic) with ulcer of left lower extremity (principal); E11.622 Type 2 diabetes mellitus with other skin ulcer; L97.822 Non-pressure chronic ulcer of other part of left lower leg with fat layer exposed; E11.40 Type 2 diabetes mellitus with diabetic neuropathy, unspecified; E66.01 Morbid (severe) obesity due to excess calories; I10 Essential (primary) hypertension; M19.90 Unspecified osteoarthritis, unspecified site; F32.9 Major depressive disorder, single episode, unspecified; Z68.39 Body mass index [BMI] 39.0-39.9, adult; Z86.718 Personal history of other venous thrombosis and embolism; Z90.710 Acquired absence of both cervix and uterus; Z87.891 Personal history of nicotine dependence
CPT/HCPCS: 11055

== ENCOUNTER 2017-01-19 11:08 | Outpatient (CLI) | payer MEDICARE ==
[2017-01-19] MEDS ORDERED: XYLOCAINE TOPICAL 4% TP ONE (11:19)
[2017-01-19] MEDS ORDERED: AD OINTMENT TP ONE (12:33)
[2017-01-20] MEDS ORDERED: AD OINTMENT TP SCH (10:00)
== END 2017-01-19 11:09 | disposition home or self-care (01) ==
LOC: WOUND 11:08
PROVIDERS: ATTEND Internal Medicine
DX: I87.312 Chronic venous hypertension (idiopathic) with ulcer of left lower extremity (principal); E11.622 Type 2 diabetes mellitus with other skin ulcer; L97.822 Non-pressure chronic ulcer of other part of left lower leg with fat layer exposed; E11.40 Type 2 diabetes mellitus with diabetic neuropathy, unspecified; E66.01 Morbid (severe) obesity due to excess calories; F32.9 Major depressive disorder, single episode, unspecified; M19.90 Unspecified osteoarthritis, unspecified site; Z68.39 Body mass index [BMI] 39.0-39.9, adult; Z86.718 Personal history of other venous thrombosis and embolism; Z90.710 Acquired absence of both cervix and uterus; Z87.891 Personal history of nicotine dependence
CPT/HCPCS: A6250

== ENCOUNTER 2017-02-09 10:23 | Outpatient (CLI) | payer MEDICARE ==
[2017-02-09] MEDS ORDERED: XYLOCAINE TOPICAL 2% ONE (11:03)
[2017-02-09] MEDS ORDERED: XYLOCAINE TOPICAL 2% TP ONE (11:05)
[2017-02-09] MEDS ORDERED: SILVER NITRATE TP ONE ×2 (11:43→15:38)
== END 2017-02-09 10:24 | disposition home or self-care (01) ==
LOC: WOUND 10:23
PROVIDERS: ATTEND Internal Medicine
DX: I87.312 Chronic venous hypertension (idiopathic) with ulcer of left lower extremity (principal); E11.40 Type 2 diabetes mellitus with diabetic neuropathy, unspecified; E11.622 Type 2 diabetes mellitus with other skin ulcer; L97.822 Non-pressure chronic ulcer of other part of left lower leg with fat layer exposed; E66.01 Morbid (severe) obesity due to excess calories; M19.90 Unspecified osteoarthritis, unspecified site; F32.9 Major depressive disorder, single episode, unspecified; Z68.39 Body mass index [BMI] 39.0-39.9, adult; Z86.718 Personal history of other venous thrombosis and embolism; Z90.710 Acquired absence of both cervix and uterus; Z87.891 Personal history of nicotine dependence

== ENCOUNTER 2017-02-16 10:11 | Outpatient (CLI) | payer MEDICARE ==
[2017-02-16] MEDS ORDERED: XYLOCAINE TOPICAL 2% ONE (10:29)
[2017-02-16] MEDS ORDERED: XYLOCAINE TOPICAL 2% TP ONE (10:30)
== END 2017-02-16 10:12 | disposition home or self-care (01) ==
LOC: WOUND 10:11
PROVIDERS: ATTEND Internal Medicine
DX: E11.622 Type 2 diabetes mellitus with other skin ulcer (principal); L97.822 Non-pressure chronic ulcer of other part of left lower leg with fat layer exposed; I87.312 Chronic venous hypertension (idiopathic) with ulcer of left lower extremity; E66.01 Morbid (severe) obesity due to excess calories; I87.1 Compression of vein; M19.90 Unspecified osteoarthritis, unspecified site; F32.9 Major depressive disorder, single episode, unspecified; Z86.718 Personal history of other venous thrombosis and embolism; Z87.891 Personal history of nicotine dependence

== ENCOUNTER 2017-02-23 09:46 | Outpatient (CLI) | payer MEDICARE ==
[2017-02-23] MEDS ORDERED: XYLOCAINE TOPICAL 2% ONE (10:07)
[2017-02-23] MEDS ORDERED: XYLOCAINE TOPICAL 2% TP ONE (10:09)
== END 2017-02-23 09:47 | disposition home or self-care (01) ==
LOC: WOUND 09:46
PROVIDERS: ATTEND Internal Medicine
DX: I87.312 Chronic venous hypertension (idiopathic) with ulcer of left lower extremity (principal); E11.622 Type 2 diabetes mellitus with other skin ulcer; L97.822 Non-pressure chronic ulcer of other part of left lower leg with fat layer exposed; E11.40 Type 2 diabetes mellitus with diabetic neuropathy, unspecified; E66.01 Morbid (severe) obesity due to excess calories; M19.90 Unspecified osteoarthritis, unspecified site; F32.9 Major depressive disorder, single episode, unspecified; Z68.39 Body mass index [BMI] 39.0-39.9, adult; Z90.710 Acquired absence of both cervix and uterus; Z86.718 Personal history of other venous thrombosis and embolism; Z87.891 Personal history of nicotine dependence

== ENCOUNTER 2017-04-13 09:54 | Outpatient (CLI) | payer MEDICARE | END 2017-04-13 09:55 | disposition home or self-care (01) | LOC: WOUND 09:54 | PROVIDERS: ATTEND Internal Medicine | DX: I87.312 Chronic venous hypertension (idiopathic) with ulcer of left lower extremity (principal); E11.622 Type 2 diabetes mellitus with other skin ulcer; L97.822 Non-pressure chronic ulcer of other part of left lower leg with fat layer exposed; E11.40 Type 2 diabetes mellitus with diabetic neuropathy, unspecified; E66.01 Morbid (severe) obesity due to excess calories; M19.90 Unspecified osteoarthritis, unspecified site; F32.9 Major depressive disorder, single episode, unspecified; Z90.710 Acquired absence of both cervix and uterus; Z68.37 Body mass index [BMI] 37.0-37.9, adult; Z86.718 Personal history of other venous thrombosis and embolism ==

== ENCOUNTER 2017-05-25 09:39 | Outpatient (CLI) | payer MEDICARE ==
[2017-05-25] MEDS ORDERED: XYLOCAINE TOPICAL 2% 5ML ONE (09:50)
[2017-05-25] MEDS ORDERED: XYLOCAINE TOPICAL 2% 5ML TP ONE (09:52)
[2017-05-25] MEDS ORDERED: AD OINTMENT TP ONE (10:43)
[2017-05-26] MEDS ORDERED: AD OINTMENT TP SCH (10:00)
== END 2017-05-25 09:40 | disposition home or self-care (01) ==
LOC: WOUND 09:39
PROVIDERS: ATTEND Internal Medicine
DX: E11.622 Type 2 diabetes mellitus with other skin ulcer (principal); I87.312 Chronic venous hypertension (idiopathic) with ulcer of left lower extremity; L97.822 Non-pressure chronic ulcer of other part of left lower leg with fat layer exposed; I87.1 Compression of vein; E66.01 Morbid (severe) obesity due to excess calories; Z68.37 Body mass index [BMI] 37.0-37.9, adult; M19.90 Unspecified osteoarthritis, unspecified site; F32.9 Major depressive disorder, single episode, unspecified; Z90.710 Acquired absence of both cervix and uterus; Z87.891 Personal history of nicotine dependence
CPT/HCPCS: A6250

== ENCOUNTER 2017-06-08 10:11 | Outpatient (CLI) | payer MEDICARE ==
[2017-06-08] MEDS ORDERED: XYLOCAINE TOPICAL 4% TP ONE (11:26)
== END 2017-06-08 10:12 | disposition home or self-care (01) ==
LOC: WOUND 10:11
PROVIDERS: ATTEND Internal Medicine
DX: E11.622 Type 2 diabetes mellitus with other skin ulcer (principal); L97.822 Non-pressure chronic ulcer of other part of left lower leg with fat layer exposed; I87.312 Chronic venous hypertension (idiopathic) with ulcer of left lower extremity; I87.1 Compression of vein; E66.01 Morbid (severe) obesity due to excess calories; M19.90 Unspecified osteoarthritis, unspecified site; F32.9 Major depressive disorder, single episode, unspecified; Z86.718 Personal history of other venous thrombosis and embolism; Z90.710 Acquired absence of both cervix and uterus; Z68.37 Body mass index [BMI] 37.0-37.9, adult

== ENCOUNTER 2017-06-22 10:37 | Outpatient (CLI) | payer MEDICARE ==
[2017-06-22] MEDS ORDERED: XYLOCAINE TOPICAL 4% TP ONE (11:00)
[2017-06-22] MEDS ORDERED: AD OINTMENT TP ONE (11:26)
[2017-06-23] MEDS ORDERED: AD OINTMENT TP SCH (10:00)
== END 2017-06-22 10:38 | disposition home or self-care (01) ==
LOC: WOUND 10:37
PROVIDERS: ATTEND Internal Medicine
DX: I87.312 Chronic venous hypertension (idiopathic) with ulcer of left lower extremity (principal); E11.622 Type 2 diabetes mellitus with other skin ulcer; L97.822 Non-pressure chronic ulcer of other part of left lower leg with fat layer exposed; E66.01 Morbid (severe) obesity due to excess calories; M19.90 Unspecified osteoarthritis, unspecified site; F32.9 Major depressive disorder, single episode, unspecified; E11.40 Type 2 diabetes mellitus with diabetic neuropathy, unspecified; Z90.710 Acquired absence of both cervix and uterus; Z68.37 Body mass index [BMI] 37.0-37.9, adult; Z86.718 Personal history of other venous thrombosis and embolism; Z87.891 Personal history of nicotine dependence
CPT/HCPCS: 29580; A6250

== ENCOUNTER 2017-07-13 10:30 | Outpatient (CLI) | payer MEDICARE | END 2017-07-13 10:31 | disposition home or self-care (01) | LOC: WOUND 10:30 | PROVIDERS: ATTEND Internal Medicine | DX: E11.622 Type 2 diabetes mellitus with other skin ulcer (principal); L97.822 Non-pressure chronic ulcer of other part of left lower leg with fat layer exposed; I87.312 Chronic venous hypertension (idiopathic) with ulcer of left lower extremity; E66.01 Morbid (severe) obesity due to excess calories; M19.90 Unspecified osteoarthritis, unspecified site; F32.9 Major depressive disorder, single episode, unspecified; Z90.710 Acquired absence of both cervix and uterus; Z68.37 Body mass index [BMI] 37.0-37.9, adult; Z86.718 Personal history of other venous thrombosis and embolism; Z87.891 Personal history of nicotine dependence | CPT/HCPCS: 99214; G0463 ==

== ENCOUNTER 2017-08-27 11:07 | Emergency (ER) | payer MEDICARE ==
[2017-08-27 11:18] VITALS: BP 115/73
[2017-08-27] MEDS ORDERED: MOTRIN PO ONE (11:58)
--- NOTE | 2017-08-27 12:29 | Emergency Department Report ---
ED Lower Extremity HPI - General Chief Complaint: Extremity Injury, Lower Stated Complaint: KNEE PAIN Time Seen by Provider: 08/27/17 11:55 Source: patient Mode of arrival: Wheelchair Limitations: No Limitations - History of Present Illness Initial Comments: This is a 72-year-old female nontoxic, well nourished in appearance, no acute signs of distress presents to the ED with c/o of left knee pain status post direct trauma that occurred 3 days ago. Patient stated that she hit her knee against the table 2 times on Thursday and now pain does not resolve. Patient denies decreased range of motion or abnormal gait. Patient denies any joint swelling, joint redness, fever, chills, nausea, vomiting, headache, stiff neck or chest insurance of breath. Patient denies any allergies. PMH includes arthritis, gout, HTN, and DM. MD Complaint: knee injury -: days(s) (3) Injury: Knee: Left Place: work Severity: mild Severity scale (0 -10): 8 Improves With: immobilization Worsens With: movement, palpation Context: direct blow Associated Symptoms: able to partially bear weight, ambulatory. denies: snap/ pop sensation, swelling, numbness, tingling, unable to bear weight - Related Data Home Medications Medication Instructions Recorded Confirmed Last Taken Allopurinol [Zyloprim] 300 mg ONCE 06/30/13 06/30/13 06/27/13 Trazodone HCl 150 mg ONCE 06/30/13 06/30/13 06/28/13 Valsartan/Hydrochlorothiazide 5 mg ONCE 06/30/13 06/30/13 06/28/13 [Valsartan-Hctz 80-12.5 mg] Warfarin [Coumadin] 5 mg PO ONCE 06/30/13 06/30/13 06/26/13 glipiZIDE [glipiZIDE ER] 5 mg ONCE 06/30/13 06/30/13 06/28/13 Previous Rx's Medication Instructions Recorded Last Taken Type Naproxen [Naprosyn] 500 mg PO BID #30 tablet 09/27/13 Unknown Rx methOCARBAMOL [Robaxin] 500 mg PO BID #30 tab 09/27/13 Unknown Rx Amoxicillin/K Clav Tab [Augmentin 1 tab PO Q12HR #14 tab 05/11/16 Unknown Rx 875 mg] HYDROcodone/APAP 5-325 [[place] 1 each PO Q6HR PRN #8 tablet 11/20/16 Unknown Rx 5/325] traMADol [Ultram 50 MG tab] 50 mg PO Q6HR PRN #20 tablet 11/20/16 Unknown Rx Ibuprofen [Motrin] 600 mg PO Q8H PRN #30 tablet 08/27/17 Unknown Rx Allergies Allergy/AdvReac Type Severity Reaction Status Date / Time No Known Allergies Allergy Verified 11/20/16 16:20 ED Review of Systems ROS: Stated complaint: KNEE PAIN Other details as noted in HPI Constitutional: denies: chills, fever Eyes: denies: eye pain, eye discharge, vision change ENT: denies: ear pain, throat pain Respiratory: denies: cough, shortness of breath, wheezing Cardiovascular: denies: chest pain, palpitations Endocrine: no symptoms reported Gastrointestinal: denies: abdominal pain, nausea, diarrhea Genitourinary: denies: urgency, dysuria, discharge Musculoskeletal: arthralgia. denies: back pain, joint swelling Skin: denies: rash, lesions Neurological: denies: headache, weakness, paresthesias Psychiatric: denies: anxiety, depression Hematological/Lymphatic: denies: easy bleeding, easy bruising ED Past Medical Hx - Past Medical History Hx Hypertension: Yes Hx Diabetes: Yes (TYPE 2) Hx Arthritis: Yes Hx Psychiatric Treatment: Yes (DEPRESSION) Additional medical history: GOUT - Surgical History Additional Surgical History: hysterectomy - Social History Smoking Status: Never Smoker Substance Use Type: None - Medications Home Medications: Home Medications Medication Instructions Recorded Confirmed Last Taken Type Allopurinol [Zyloprim] 300 mg ONCE 06/30/13 06/30/13 06/27/13 History Trazodone HCl 150 mg ONCE 06/30/13 06/30/13 06/28/13 History Valsartan/Hydrochlorothiazide 5 mg ONCE 06/30/13 06/30/13 06/28/13 History [Valsartan-Hctz 80-12.5 mg] Warfarin [Coumadin] 5 mg PO ONCE 06/30/13 06/30/13 06/26/13 History glipiZIDE [glipiZIDE ER] 5 mg ONCE 06/30/13 06/30/13 06/28/13 History Naproxen [Naprosyn] 500 mg PO BID #30 tablet 09/27/13 Unknown Rx methOCARBAMOL [Robaxin] 500 mg PO BID #30 tab 09/27/13 Unknown Rx Amoxicillin/K Clav Tab [Augmentin 1 tab PO Q12HR #14 tab 05/11/16 Unknown Rx 875 mg] HYDROcodone/APAP 5-325 [[place] 1 each PO Q6HR PRN #8 tablet 11/20/16 Unknown Rx 5/325] traMADol [Ultram 50 MG tab] 50 mg PO Q6HR PRN #20 tablet 11/20/16 Unknown Rx Ibuprofen [Motrin] 600 mg PO Q8H PRN #30 tablet 08/27/17 Unknown Rx ED Physical Exam - General Limitations: No Limitations General appearance: alert, in no apparent distress - Head Head exam: Present: atraumatic, normocephalic - Eye Eye exam: Present: normal appearance Pupils: Present: normal accommodation - ENT ENT exam: Present: normal exam, mucous membranes moist - Neck Neck exam: Present: normal inspection, full ROM. Absent: tenderness, meningismus - Respiratory Respiratory exam: Present: normal lung sounds bilaterally. Absent: respiratory distress, wheezes, rales, rhonchi, stridor - Cardiovascular Cardiovascular Exam: Present: regular rate, normal rhythm, normal heart sounds. Absent: bradycardia, tachycardia, irregular rhythm, systolic murmur, diastolic murmur, rubs, gallop - GI/Abdominal GI/Abdominal exam: Present: soft, normal bowel sounds - Rectal Rectal exam: Present: deferred - Extremities Exam Extremities exam: Present: normal inspection, full ROM, tenderness, normal capillary refill. Absent: pedal edema, joint swelling, calf tenderness - Expanded Lower Extremity Exam Left Hip exam: Present: normal inspection, full ROM Upper Leg exam: Present: normal inspection, full ROM Knee exam: Present: normal inspection, full ROM, tenderness, full knee extension. Absent: swelling, abrasion, laceration, ecchymosis, deformity, crepidus, dislocation, erythema, effusion, pain w/ pronation/supination, posterior draw sign, pain/laxity with valgus, pain/laxity with varus Lower Leg exam: Present: normal inspection, full ROM. Absent: tenderness, swelling, abrasion, laceration, ecchymosis, deformity, crepidus, dislocation, erythema, palpable cord, Bisi's sign Ankle exam: Present: normal inspection, full ROM Foot/Toe exam: Present: normal inspection, full ROM Neuro vascular tendon exam: Present: no vascular compromise. Absent: pulse deficit, abnormal cap refill, motor deficit, sensory deficit, tendon deficit, extremity cold to touch, pallor, abnormal 2-point discrimination, decreased fine /light touch, foot drop, peroneal nerve deficit, significant pain with passive ROM of distal joint Gait: Positive: observed and limited by pain - Back Exam Back exam: Present: normal inspection, full ROM - Neurological Exam Neurological exam: Present: alert, oriented X3, normal gait - Psychiatric Psychiatric exam: Present: normal affect, normal mood - Skin Skin exam: Present: warm, dry, intact, normal color. Absent: rash ED Course Vital Signs 08/27/17 11:15 Temperature 97.8 F Pulse Rate 83 Respiratory 16 Rate Blood Pressure 115/73 O2 Sat by Pulse 97 Oximetry - Reevaluation(s) Reevaluation #1: 08/27/17 12:42 Patient is speaking in full sentences with no signs of distress noted. ED Lower Extremity MDM - Medical Decision Making This is a 72-year-old female that presents with left knee strain. Patient is stable and was examined by me. I referred patient to an orthopedic doctor for further evaluation for possible MRI. X-ray has been obtained and dictated by the radiologist. Patient is notified of the x-ray report with noted by the patient. Patient does have normal gait with no tenderness and no joint swelling. No ecchymosis. no joint redness or swelling. Not warm to touch. No signs of cellulites present. Patient received a knee immobilize and patient stated has a walker at home. Patient was instructed to RICE therapy. Patient received Motrin for pain. Patient is discharged with Motrin. At time of discharge, the patient does not seem toxic or ill in appearance. No acute signs of distress noted. Patient agrees to discharge treatment plan of care. No further questions noted by the patient. Critical care attestation.: If time is entered above; I have spent that time in minutes in the direct care of this critically ill patient, excluding procedure time. ED Disposition Clinical Impression: Strain of left knee Qualifiers: Encounter type: initial encounter Qualified Code(s): S86.912A - Strain of unspecified muscle(s) and tendon(s) at lower leg level, left leg, initial encounter Disposition: DC-01 TO HOME OR SELFCARE Is pt being admited?: No Does the pt Need Aspirin: No Condition: Stable Instructions: Knee Pain (ED), Knee Immobilizer (ED), RICE Therapy (ED), Ibuprofen (By mouth) Additional Instructions: Follow-up with a primary care doctor in 3-5 days or if symptoms worsen and continue return to emergency room as soon as possible. rest, elevate and ice extremity Prescriptions: Ibuprofen [Motrin] 600 mg PO Q8H PRN #30 tablet PRN Reason: Pain Referrals: PRIMARY CAREMD [Referring] - 3-5 Days KATELYN BARRIOS MD [Staff Physician] - 3-5 Days [facility] [Outside] - 3-5 Days [facility] [Outside] - 3-5 Days
--- NOTE | 2017-08-27 14:09 | XRay Report ---
LEFT KNEE, 3 views: History: Knee pain. Findings: Severe end-stage tricompartmental osteoarthritic changes are identified. There is near-complete loss of the joint space in the left knee. No fracture or bone lesion is identified. Moderate joint effusion is noted on the lateral image. No overwhelming change since 02/07/15. IMPRESSION: Severe osteoarthritis.
== END 2017-08-27 14:38 | disposition home or self-care (01) ==
LOC: ED 11:07
DX: S86.912A Strain of unspecified muscle(s) and tendon(s) at lower leg level, left leg, initial encounter (principal); I10 Essential (primary) hypertension; E11.9 Type 2 diabetes mellitus without complications; W22.09XA Striking against other stationary object, initial encounter; Y93.89 Activity, other specified; Y92.89 Other specified places as the place of occurrence of the external cause; Y99.8 Other external cause status

== ENCOUNTER 2017-09-22 19:27 | Emergency (ER) | payer MEDICARE ==
[2017-09-22 20:56] VITALS: BP 137/74
[2017-09-22 21:13] LABS: Hematocrit 36.5 % (30.3-42.9); Hemoglobin 11.4 gm/dl (10.1-14.3); Mean Corpuscular HGB Conc 31 % (30-34); Mean Corpuscular Hemoglobin 22 pg (28-32); Mean Corpuscular Volume 70 fl (79-97); Platelet Count 255 K/mm3 (140-440); Red Blood Count 5.19 M/mm3 (3.65-5.03); Red Cell Distribution Width 16.5 % (13.2-15.2)
[2017-09-22 21:23] LABS: Alanine Aminotransferase 12 units/L (7-56); Albumin 4.2 g/dL (3.9-5); BUN/Creatinine Ratio 33; Blood Urea Nitrogen 23 mg/dL (7-17); Calcium 9.1 mg/dL (8.4-10.2); Hemolysis Index 2
--- NOTE | 2017-09-22 22:45 | Emergency Department Report ---
- General Chief Complaint: Puncture Wound Stated Complaint: FOOT PAIN / SHOULDER PAIN Time Seen by Provider: 09/22/17 22:28 Source: patient Mode of arrival: Ambulatory Limitations: No Limitations - History of Present Illness Initial Comments: 72-year-old -[place] female comes in today complaining of left foot for that's been there for a few days. Patient thinks that she may have gotten bitten by a spider. She also concern for a cystlike structure on her left shoulder. Patient reports that is starting to give her pain. She reports it is been there for a few months. Patient does report a past medical history diabetes arthritis hypertension depression. She is followed by primary care provider. Extremity Location: Left: Foot, Right: Shoulder (upper shoulder blade) Place: home Associated Symptoms: pain Treatments Prior to Arrival: bandage - Related Data Home Medications Medication Instructions Recorded Confirmed Last Taken Allopurinol [Zyloprim] 300 mg ONCE 06/30/13 06/30/13 06/27/13 Trazodone HCl 150 mg ONCE 06/30/13 06/30/13 06/28/13 Valsartan/Hydrochlorothiazide 5 mg ONCE 06/30/13 06/30/13 06/28/13 [Valsartan-Hctz 80-12.5 mg] Warfarin [Coumadin] 5 mg PO ONCE 06/30/13 06/30/13 06/26/13 glipiZIDE [glipiZIDE ER] 5 mg ONCE 06/30/13 06/30/13 06/28/13 Previous Rx's Medication Instructions Recorded Last Taken Type methOCARBAMOL [Robaxin] 500 mg PO BID #30 tab 09/27/13 Unknown Rx Amoxicillin/K Clav Tab [Augmentin 1 tab PO Q12HR #14 tab 05/11/16 Unknown Rx 875 mg] HYDROcodone/APAP 5-325 [[place] 1 each PO Q6HR PRN #8 tablet 11/20/16 Unknown Rx 5/325] traMADol [Ultram 50 MG tab] 50 mg PO Q6HR PRN #20 tablet 11/20/16 Unknown Rx Ibuprofen [Motrin] 600 mg PO Q8H PRN #30 tablet 08/27/17 Unknown Rx Cephalexin [Keflex] 500 mg PO BID #20 capsule 09/22/17 Unknown Rx Naproxen [Naprosyn TAB] 500 mg PO BID #30 tablet 09/22/17 Unknown Rx Sulfamethoxazole/Trimethoprim 1 each PO BID #20 tablet 09/22/17 Unknown Rx [Bactrim DS TAB] Allergies Allergy/AdvReac Type Severity Reaction Status Date / Time No Known Allergies Allergy Verified 11/20/16 16:20 ED Review of Systems ROS: Stated complaint: FOOT PAIN / SHOULDER PAIN Other details as noted in HPI Constitutional: denies: chills, fever Eyes: denies: eye pain, eye discharge, vision change ENT: denies: ear pain, throat pain Respiratory: denies: cough, shortness of breath, wheezing Cardiovascular: denies: chest pain, palpitations Gastrointestinal: denies: abdominal pain, nausea, diarrhea Genitourinary: denies: urgency, dysuria, discharge Musculoskeletal: denies: back pain, joint swelling, arthralgia Skin: lesions (left foot top, swelling left upper shoulder blade) Psychiatric: denies: anxiety, depression ED Past Medical Hx - Past Medical History Hx Hypertension: Yes Hx Diabetes: Yes (TYPE 2) Hx Arthritis: Yes Hx Psychiatric Treatment: Yes (DEPRESSION) Additional medical history: GOUT - Surgical History Additional Surgical History: hysterectomy - Social History Smoking Status: Never Smoker - Medications Home Medications: Home Medications Medication Instructions Recorded Confirmed Last Taken Type Allopurinol [Zyloprim] 300 mg ONCE 06/30/13 06/30/13 06/27/13 History Trazodone HCl 150 mg ONCE 06/30/13 06/30/13 06/28/13 History Valsartan/Hydrochlorothiazide 5 mg ONCE 06/30/13 06/30/13 06/28/13 History [Valsartan-Hctz 80-12.5 mg] Warfarin [Coumadin] 5 mg PO ONCE 06/30/13 06/30/13 06/26/13 History glipiZIDE [glipiZIDE ER] 5 mg ONCE 06/30/13 06/30/13 06/28/13 History methOCARBAMOL [Robaxin] 500 mg PO BID #30 tab 09/27/13 Unknown Rx Amoxicillin/K Clav Tab [Augmentin 1 tab PO Q12HR #14 tab 05/11/16 Unknown Rx 875 mg] HYDROcodone/APAP 5-325 [[place] 1 each PO Q6HR PRN #8 tablet 11/20/16 Unknown Rx 5/325] traMADol [Ultram 50 MG tab] 50 mg PO Q6HR PRN #20 tablet 11/20/16 Unknown Rx Ibuprofen [Motrin] 600 mg PO Q8H PRN #30 tablet 08/27/17 Unknown Rx Cephalexin [Keflex] 500 mg PO BID #20 capsule 09/22/17 Unknown Rx Naproxen [Naprosyn TAB] 500 mg PO BID #30 tablet 09/22/17 Unknown Rx Sulfamethoxazole/Trimethoprim 1 each PO BID #20 tablet 09/22/17 Unknown Rx [Bactrim DS TAB] ED Physical Exam - General Limitations: No Limitations General appearance: alert, in no apparent distress - Respiratory Respiratory exam: Present: normal lung sounds bilaterally. Absent: respiratory distress - Cardiovascular Cardiovascular Exam: Present: regular rate, normal rhythm. Absent: systolic murmur, diastolic murmur, rubs, gallop - Extremities Exam Extremities exam: Present: normal inspection - Back Exam Back exam: Present: normal inspection - Neurological Exam Neurological exam: Present: alert, oriented X3 - Psychiatric Psychiatric exam: Present: normal affect, normal mood - Skin Skin exam: Present: erythema (left foot erythematous edematous with quarter- sized open wound with warm.), other (cystlike structure 12cm x 7cm upper shoulder blade) ED Course Vital Signs 09/22/17 20:46 Temperature 98.5 F Pulse Rate 82 Blood Pressure 137/74 ED Medical Decision Making - Lab Data Result diagrams: 09/22/17 21:01 09/22/17 21:01 - Medical Decision Making Patient's been evaluated by this provider in fast track. Discussed patient that it appears that she has a lipoma on her upper back. I will refer her to surgery for that. Discussed the patient appears that she has cellulitis to the left foot. I will place patient on Bactrim and will strength 1 tablet by mouth twice a day for 10 days. Discussed with patient that she needs to follow-up with her primary care provider. Patient verbalized understanding. Critical care attestation.: If time is entered above; I have spent that time in minutes in the direct care of this critically ill patient, excluding procedure time. ED Disposition Clinical Impression: Lipoma of lower back, Cellulitis of foot, left Disposition: - TO HOME OR SELFCARE Is pt being admited?: No Does the pt Need Aspirin: No Condition: Stable Instructions: Cellulitis (ED), Lipoma (ED) Additional Instructions: Please complete antibiotics as prescribed. Please follow-up which her primary care provider if symptoms persist or gets worse. Please follow-up with surgery in regards to your lipoma on your back. I have listed a surgeon below. Prescriptions: Cephalexin [Keflex] 500 mg PO BID #20 capsule Naproxen [Naprosyn TAB] 500 mg PO BID #30 tablet Sulfamethoxazole/Trimethoprim [Bactrim DS TAB] 1 each PO BID #20 tablet Referrals: CECIL OGLESBY MD [Primary Care Provider] - 3-5 Days FRANTZ SHAHID MD [Staff Physician] - 3-5 Days CHRIS PEPPER MD [Staff Physician] - 3-5 Days
== END 2017-09-22 23:10 | disposition home or self-care (01) ==
LOC: ED 19:27
DX: L03.116 Cellulitis of left lower limb (principal); D17.1 Benign lipomatous neoplasm of skin and subcutaneous tissue of trunk; I10 Essential (primary) hypertension; E11.9 Type 2 diabetes mellitus without complications; M19.90 Unspecified osteoarthritis, unspecified site; F32.9 Major depressive disorder, single episode, unspecified
CPT/HCPCS: 36415; 80053; 82962; 85027; 99283

== ENCOUNTER 2018-05-11 11:50 | Outpatient (CLI) | payer MEDICARE ==
--- NOTE | 2018-05-11 15:02 | Mammography Report ---
BILATERAL DIGITAL SCREENING MAMMOGRAM with CAD: 05/11/18 11:50:00 CLINICAL: Routine screening. COMPARISON: 04/12/15 FINDINGS: There are bilateral scattered areas of fibroglandular density.No mass, architectural distortion or suspicious calcifications. IMPRESSION: No mammographic evidence of malignancy. BI-RADS CATEGORY: 1 -- Negative RECOMMENDATION: Routine mammographic screening in one year. COMMENT: Patient follow-up letters are generated by our [employer] application.
== END 2018-05-11 11:51 | disposition home or self-care (01) ==
LOC: MAMMO 11:50
PROVIDERS: ATTEND Internal Medicine
DX: Z12.31 Encounter for screening mammogram for malignant neoplasm of breast (principal); I10 Essential (primary) hypertension; M19.90 Unspecified osteoarthritis, unspecified site; Z90.710 Acquired absence of both cervix and uterus
CPT/HCPCS: 77067

== ENCOUNTER 2018-08-12 12:49 | Emergency (ER) | payer MEDICARE ==
[2018-08-12 14:02] VITALS: BP 157/76
--- NOTE | 2018-08-12 14:05 | Emergency Department Report ---
Blank Doc - Documentation Documentation: 73 y o female presents with left calf swelling and painx2 days ago hx of stent placement in left leg tender to palp of lft d-dimer/ doppler ordered
--- NOTE | 2018-08-12 15:37 | Emergency Department Report ---
ED Extremity Problem HPI - General Chief complaint: Extremity Injury, Lower Stated complaint: LFT LEG PAIN/KNOT UNDER ARM Time Seen by Provider: 08/12/18 15:15 Source: patient Mode of arrival: Ambulatory Limitations: No Limitations - History of Present Illness Initial comments: Patient is a 73-year-old female that presents emergency room with complaints of left lower extremity swelling and pain. Patient states it started 2 days ago. Patient states the pain is worsening. Patient states that the swelling is worsening. Patient denies fever and chills. Patient states that her left lower extremity is warm to touch. Patient states she has a history of venous stasis and a venous ulcer but has never had a DVT. Patient also complains of a knot under her left arm and her left armpit. Patient states not been going on for 2 days. MD Complaint: extremity pain, extremity swelling -: Sudden Location: left, lower extremity History of Same: Yes Severity scale (0 -10): 10 Quality: stabbing Consistency: constant Improves with: rest Worsens with: weight bearing, walking, exertion, palpation Associated Symptoms: denies: chest pain, shortness of breath, fever, myalgias, arthralgias, rash - Related Data Home Medications Medication Instructions Recorded Confirmed Last Taken Allopurinol [Zyloprim] 300 mg ONCE 06/30/13 06/30/13 06/27/13 Trazodone HCl 150 mg ONCE 06/30/13 06/30/13 06/28/13 Valsartan/Hydrochlorothiazide 5 mg ONCE 06/30/13 06/30/13 06/28/13 [Valsartan-Hctz 80-12.5 mg] Warfarin [Coumadin] 5 mg PO ONCE 06/30/13 06/30/13 06/26/13 glipiZIDE [glipiZIDE ER] 5 mg ONCE 06/30/13 06/30/13 06/28/13 Previous Rx's Medication Instructions Recorded Last Taken Type methOCARBAMOL [Robaxin] 500 mg PO BID #30 tab 09/27/13 Unknown Rx Amoxicillin/K Clav Tab [Augmentin 1 tab PO Q12HR #14 tab 05/11/16 Unknown Rx 875 mg] traMADol [Ultram 50 MG tab] 50 mg PO Q6HR PRN #20 tablet 11/20/16 Unknown Rx Ibuprofen [Motrin] 600 mg PO Q8H PRN #30 tablet 08/27/17 Unknown Rx Cephalexin [Keflex] 500 mg PO BID #20 capsule 09/22/17 Unknown Rx Naproxen [Naprosyn TAB] 500 mg PO BID #30 tablet 09/22/17 Unknown Rx Ondansetron [Zofran Odt] 4 mg PO Q8HR PRN #14 tab.rapdis 03/28/18 Unknown Rx guaiFENesin/CODEINE [Robitussin AC] 10 ml PO TID PRN #100 ml 03/28/18 Unknown Rx levoFLOXacin [Levaquin TAB] 500 mg PO QDAY #7 tablet 03/28/18 Unknown Rx HYDROcodone/APAP 5-325 [[place] 1 each PO Q6HR PRN #8 tablet 08/12/18 Unknown Rx 5-325 mg TAB] Sulfamethoxazole/Trimethoprim 1 each PO BID 10 Days #20 tablet 08/12/18 Unknown Rx [Bactrim DS TAB] Allergies Allergy/AdvReac Type Severity Reaction Status Date / Time No Known Allergies Allergy Verified 08/12/18 12:57 ED Review of Systems ROS: Stated complaint: LFT LEG PAIN/KNOT UNDER ARM Other details as noted in HPI Constitutional: denies: chills, fever Eyes: denies: eye pain, eye discharge, vision change ENT: denies: ear pain, throat pain Respiratory: denies: cough, shortness of breath, wheezing Cardiovascular: denies: chest pain, palpitations Endocrine: no symptoms reported Gastrointestinal: denies: abdominal pain, nausea, diarrhea Genitourinary: denies: urgency, dysuria, discharge Musculoskeletal: denies: back pain, joint swelling, arthralgia Skin: denies: rash, lesions Neurological: denies: headache, weakness, paresthesias Psychiatric: denies: anxiety, depression Hematological/Lymphatic: denies: easy bleeding, easy bruising ED Past Medical Hx - Past Medical History Previous Medical History?: Yes Hx Hypertension: Yes Hx Diabetes: Yes (TYPE 2) Hx Arthritis: Yes Hx Psychiatric Treatment: Yes (DEPRESSION) Additional medical history: GOUT - Surgical History Past Surgical History?: Yes Additional Surgical History: hysterectomy, STENT IN RT. LEG - Social History Smoking Status: Former Smoker Substance Use Type: Alcohol - Medications Home Medications: Home Medications Medication Instructions Recorded Confirmed Last Taken Type Allopurinol [Zyloprim] 300 mg ONCE 0206/30/13 06/27/13 History Trazodone HCl 150 mg ONCE 06/30/13 06/30/13 06/28/13 History Valsartan/Hydrochlorothiazide 5 mg ONCE 06/30/13 06/30/13 06/28/13 History [Valsartan-Hctz 80-12.5 mg] Warfarin [Coumadin] 5 mg PO ONCE 06/30/13 06/30/13 06/26/13 History glipiZIDE [glipiZIDE ER] 5 mg ONCE 06/30/13 06/30/13 06/28/13 History methOCARBAMOL [Robaxin] 500 mg PO BID #30 tab 09/27/13 Unknown Rx Amoxicillin/K Clav Tab [Augmentin 1 tab PO Q12HR #14 tab 05/11/16 Unknown Rx 875 mg] traMADol [Ultram 50 MG tab] 50 mg PO Q6HR PRN #20 tablet 11/20/16 Unknown Rx Ibuprofen [Motrin] 600 mg PO Q8H PRN #30 tablet 08/27/17 Unknown Rx Cephalexin [Keflex] 500 mg PO BID #20 capsule 09/22/17 Unknown Rx Naproxen [Naprosyn TAB] 500 mg PO BID #30 tablet 09/22/17 Unknown Rx Ondansetron [Zofran Odt] 4 mg PO Q8HR PRN #14 tab.rapdis 03/28/18 Unknown Rx guaiFENesin/CODEINE [Robitussin AC] 10 ml PO TID PRN #100 ml 03/28/18 Unknown Rx levoFLOXacin [Levaquin TAB] 500 mg PO QDAY #7 tablet 03/28/18 Unknown Rx HYDROcodone/APAP 5-325 [[place] 1 each PO Q6HR PRN #8 tablet 08/12/18 Unknown Rx 5-325 mg TAB] Sulfamethoxazole/Trimethoprim 1 each PO BID 10 Days #20 tablet 08/12/18 Unknown Rx [Bactrim DS TAB] ED Physical Exam - General Limitations: No Limitations General appearance: alert, in no apparent distress - Head Head exam: Present: atraumatic, normocephalic - Eye Eye exam: Present: normal appearance, PERRL Pupils: Present: normal accommodation - ENT ENT exam: Present: mucous membranes moist - Neck Neck exam: Present: normal inspection - Respiratory Respiratory exam: Present: normal lung sounds bilaterally. Absent: respiratory distress - Cardiovascular Cardiovascular Exam: Present: regular rate, normal rhythm. Absent: systolic murmur, diastolic murmur, rubs, gallop - GI/Abdominal GI/Abdominal exam: Present: soft, normal bowel sounds - Extremities Exam Extremities exam: Present: full ROM, calf tenderness (left calf tenderness.), other (left lower extremity swelling with tenderness to palpation and redness. Left axilla: Cellulitis noted. Area is nonfluctuant No abscess noted) - Back Exam Back exam: Present: normal inspection - Neurological Exam Neurological exam: Present: alert, oriented X3 - Psychiatric Psychiatric exam: Present: normal affect, normal mood - Skin Skin exam: Present: warm, dry, intact, normal color. Absent: rash ED Course Vital Signs 08/12/18 13:57 Temperature 97.8 F Pulse Rate 75 Respiratory 16 Rate Blood Pressure 157/76 O2 Sat by Pulse 99 Oximetry - Reevaluation(s) Reevaluation #1: Discussed plan of care with patient. 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 08/12/18 16:32 Discussed all results with patient. Patient stable for discharge. Patient requested a pain pill prior to discharge. Patient will be given 5 mg of [place]. Patient voiced understanding of discharge instructions. 08/12/18 16:52 ED Medical Decision Making - Medical Decision Making Patient is a 73-year-old female Emergency room with complaints of left lower extremity swelling. Patient ultrasound done. There is NEGATIVE FOR DVT BUT POSITIVE FOR HEMATOMA. PATIENT GIVEN PAIN MEDICATIONS. PATIENT ALSO FOUND TO HAVE CELLULITIS OF LOWER EXTREMITY AND CELLULITIS OF THE LEFT AXILLA. PATIENT WILL BE GIVEN ORAL ANTIBIOTICS. PATIENT STABLE FOR DISCHARGE. PATIENT GIVEN DISCHARGE INSTRUCTIONS. PATIENT WILL BE DISCHARGED HOME. - Differential Diagnosis cellulitis. Hematoma. DVT. Critical care attestation.: If time is entered above; I have spent that time in minutes in the direct care of this critically ill patient, excluding procedure time. ED Disposition Clinical Impression: Cellulitis of axilla, left, Venous stasis, Venous stasis dermatitis of left lower extremity, Lower extremity pain, left Lower extremity cellulitis Qualifiers: Laterality: left Qualified Code(s): L03.116 - Cellulitis of left lower limb Disposition: - TO HOME OR SELFCARE Is pt being admited?: No Does the pt Need Aspirin: No Condition: Stable Instructions: Cellulitis (ED), Contusion in Adults (ED) Additional Instructions: Patient to follow-up with primary care in 2-3 days. Patient take meds as directed. Patient to take Tylenol or ibuprofen when necessary for pain. Patient to use a warm compress on her leg and her left axilla.. Patient to return to ER if condition worsens. Patient to rest. Patient to elevate leg. patient to continue all medications. Prescriptions: Sulfamethoxazole/Trimethoprim [Bactrim DS TAB] 1 each PO BID 10 Days #20 tablet HYDROcodone/APAP 5-325 [[place] 5-325 mg TAB] 1 each PO Q6HR PRN #8 tablet PRN Reason: Pain Referrals: CHRIS PEPPER MD [Primary Care Provider] - 2-3 Days Time of Disposition: 16:54
[2018-08-12] MEDS ORDERED: NORCO 5/325 PO ONE (16:51)
--- NOTE | 2018-08-12 17:16 | Vascular Lab Report ---
PROCEDURE: VL VENOUS DUPLEX LE LT TECHNIQUE: Grayscale, color flow and Doppler waveform imaging of the deep venous structures of the l eft lower extremity was performed. HISTORY: swelling/ pain COMPARISONS: None FINDINGS: There is demonstration of normal compression and normal phasic flow in the deep venous structures of the left lower extremity from the common femoral vein to the popliteal vein. There is demonstration of normal compression of the posterior tibial and peroneal veins. Images labeled "area of concern" in the "left lateral midcalf" demonstrate an approximately 3 cm hete rogeneous hypoechoic avascular collection. This may represent a hematoma. A hypovascular mass cannot entirely be excluded. IMPRESSION: 1. No ultrasound evidence of deep venous thrombosis left lower extremity. 2. Approximately 3 cm hypoechoic avascular collection left lateral mid calf which may represent a hem atoma. A hypervascular mass cannot entirely be excluded. Correlation with clinical history and physic al exam will be helpful. If further imaging is required, CT or MRI may be helpful. This document is electronically signed by Leisa Urbina MD., August 12 2018 05:13:49 PM ET
== END 2018-08-12 17:14 | disposition home or self-care (01) ==
LOC: ED 12:49
DX: L03.112 Cellulitis of left axilla (principal); I87.8 Other specified disorders of veins; M79.662 Pain in left lower leg
CPT/HCPCS: 36415; 85379

== ENCOUNTER 2019-06-09 12:20 | Outpatient (CLI) | payer MEDICARE ==
--- NOTE | 2019-06-09 14:41 | Mammography Report ---
DIGITAL SCREENING MAMMOGRAM WITH CAD, 06/09/2019 INDICATION: Routine screening mammography. TECHNIQUE: Digital bilateral 2D mammography was obtained in the craniocaudal and mediolateral obliq ue projections. This examination was interpreted with the benefit of Computer-Aided Detection analysi s. COMPARISON: 05/11/2018 FINDINGS: Breast Density: There are scattered areas of fibroglandular density. There is no evidence of dominant mass, suspicious calcifications or architectural distortion in eithe r breast. IMPRESSION: No mammographic evidence of malignancy. Follow up recommendation: Routine yearly BI-RADS Category 1: Negative. A "normal" or negative report should not discourage follow up or biopsy of a clinically significant f inding. A written summary of these findings will be mailed to the patient. The patient will be entered into a mammography reporting system which will generate a reminder letter for the patient's next appointmen t at the appropriate interval. The [employer] recommends yearly mammograms starting at age 40 and continuing as l marianela as a woman is in good health. Breast MRI is recommended for women with an approximate 20-25% or greater lifetime risk of breast cancer, including women with a strong family history of breast or ova farrukh cancer or who have been treated for Hodgkin's disease. Signer Name: Nate Meyer MD Signed: 06/09/2019 2:36 PM Workstation Name: [id number]
== END 2019-06-09 12:21 | disposition home or self-care (01) ==
LOC: MAMMO 12:20
PROVIDERS: ATTEND Internal Medicine
DX: Z12.31 Encounter for screening mammogram for malignant neoplasm of breast (principal); N64.89 Other specified disorders of breast
CPT/HCPCS: 77067

== ENCOUNTER 2020-07-03 10:13 | Emergency (ER) | payer MEDICARE ==
--- NOTE | 2020-07-03 10:38 | Event Note ---
ED Screening Note ED Screening Note: states she had a fall a week ago, has low back pain, left maxilla pain, and right knee pain states she is not sure how she fell she states she was outside and fell onto a brick brook she is not sure if she had LOC she states also for the last three days she has had CP and SOB and nausea PMHx DM, HTN, arthritis, afib on warfarin This initial assessment/diagnostic orders/clinical plan/treatment(s) is/are subject to change based on patients health status, clinical progression and re- assessment by fellow clinical providers in the ED. Further treatment and workup at subsequent clinical providers discretion. Patient/guardian urged not to elope from the ED as their condition may be serious if not clinically assessed and managed. Initial orders include: CP protocol, imaging
[2020-07-03 11:02] LABS: Basophils # (Auto) 0.1 K/mm3 (0.0-0.1); Basophils % (Auto) 0.6 % (0.0-1.8); Eosinophils # (Auto) 0.1 K/mm3 (0.0-0.4); Eosinophils % (Auto) 1.2 % (0.0-4.3); Hematocrit 39.3 % (30.3-42.9); Hemoglobin 12.4 gm/dl (10.1-14.3); Lymphocytes # (Auto) 1.4 K/mm3 (1.2-5.4); Lymphocytes % (Auto) 16.5 % (13.4-35.0); Mean Corpuscular HGB Conc 32 % (30-34); Mean Corpuscular Volume 72 fl (79-97); Monocytes # (Auto) 0.8 K/mm3 (0.0-0.8); Monocytes % (Auto) 9.1 % (0.0-7.3); Platelet Count 278 K/mm3 (140-440); Red Blood Count 5.44 M/mm3 (3.65-5.03); Red Cell Distribution Width 15.1 % (13.2-15.2)
[2020-07-03 11:20] LABS: Alanine Aminotransferase 15 units/L (7-56); Albumin 4.2 g/dL (3.9-5); Blood Urea Nitrogen 10 mg/dL (7-17); Calcium 9.2 mg/dL (8.4-10.2); Hemolysis Index 0
[2020-07-03 11:34] LABS: INR 2.84 (0.87-1.13)
[2020-07-03 11:40] LABS: BUN/Creatinine Ratio 20
--- NOTE | 2020-07-03 12:04 | Cat Scan Report ---
CT BRAIN: 07/03/2020 INDICATION / CLINICAL INFORMATION: fall, SAMUELS, unsure LOC, on anticoagulation, back keith. COMPARISON: None available. FINDINGS: BRAIN/INTRACRANIAL STRUCTURES: Unenhanced CT images of the brain demonstrate no evidence of acute int racranial abnormality. Ventricles and sulci are prominent in size, consistent with diffuse cerebral atrophy. There is no CT evidence of acute ischemic injury, hemorrhage, or mass. There are no abnormal extra-ax ial fluid collections. EXTRACRANIAL STRUCTURES: Unremarkable. IMPRESSION: No acute abnormality. All CT scans at this location are performed using dose reduction to ALARA by means of automated expos ure control. Signer Name: Scooby Hdez MD Signed: 07/03/2020 11:59 AM Workstation Name: [id number]
--- NOTE | 2020-07-03 12:04 | Cat Scan Report ---
CT LUMBAR SPINE WITHOUT CONTRAST INDICATION: Back pain after fall. TECHNIQUE: Axial imaging performed through the lumbar spine without the use of contrast. Sagittal a nd coronal reconstructed images were also reviewed. All CT scans at this location are performed usin g CT dose reduction for ALARA by means of automated exposure control. COMPARISON: None FINDINGS: Alignment: 2 to 3 mm anterolisthesis of L4 with respect L5 is identified which appears to be seconda ry to degenerative facet arthropathy. Bones: There is no acute osseous abnormality. Severe degenerative disc disease with narrowing, endp late spurring and vacuum phenomenon is identified at L4-5 and L5-S1. The remaining disc levels are no rmal height. Moderate to severe hypertrophic facet arthropathy is present throughout the lumbar regio n but most pronounced at the lowest 3 levels. Multilevel bulging discs are also suspected at L3-4, L4 -5 and to a lesser extent L5-S1. Although intraspinal contents is limited on CT, moderate to severe c anal stenosis is suspected at L3-4 and L4-5. Multilevel neural foraminal narrowing is also suspected. Bone graft donor site in the left posterior iliac bone is suspected. Soft tissues: No acute or significant incidental soft tissue abnormality. IMPRESSION: No acute injury is appreciated. Severe multilevel lumbar spondylosis which is most pronounced at the lowest 3 levels as described. Signer Name: Ghanshyam De Luna Jr, MD Signed: 07/03/2020 11:59 AM Workstation Name: [id number]
--- NOTE | 2020-07-03 12:07 | Cat Scan Report ---
FACIAL CT 07/03/2020 HISTORY: Trauma FINDINGS: CT images of the facial bones were obtained. Images are evaluated in the axial, coronal, an d sagittal planes. There is no evidence of acute osseous injury. Orbital structures are intact. Small mucosal retention cyst is present in the inferior right maxillary sinus. Paranasal sinuses are otherwise clear. IMPRESSION: No acute abnormality. All CT scans at this location are performed using dose reduction to ALARA by means of automated expos ure control. Signer Name: Scooby Hdez MD Signed: 07/03/2020 12:03 PM Workstation Name: [id number]
--- NOTE | 2020-07-03 12:43 | Emergency Department Report ---
ED General Adult HPI - General Chief complaint: Fall Stated complaint: FALL X 1 WEEK/LFT SIDE PAIN/REQUESTING COVID TEST Time Seen by Provider: 07/03/20 10:33 Source: patient Mode of arrival: Ambulatory Limitations: No Limitations - History of Present Illness Initial comments: The patient presents to the emergency department the chief complaint of sinus congestion and a fall. Patient states she fell approximately 1 week ago. Patient states she was walking in the yard and thinks she tripped over a wooden angle. Patient is unsure if she lost consciousness but she does endorse hitting her head. Patient denies any chest pain, shortness breath, abdominal pain -: Sudden Location: head Severity scale (0 -10): 3 Quality: aching Consistency: constant Improves with: none Worsens with: none Associated Symptoms: denies other symptoms Treatments Prior to Arrival: none - Related Data Home Medications Medication Instructions Recorded Confirmed Last Taken Trazodone HCl 150 mg ONCE 06/30/13 06/30/13 06/28/13 Valsartan/Hydrochlorothiazide 5 mg ONCE 06/30/13 06/30/13 06/28/13 [Valsartan-Hctz 80-12.5 mg] Warfarin [Coumadin] 5 mg PO ONCE 06/30/13 06/30/13 06/26/13 allopurinoL [Zyloprim] 300 mg ONCE 06/30/13 06/30/13 06/27/13 glipiZIDE [glipiZIDE ER] 5 mg ONCE 06/30/13 06/30/13 06/28/13 Previous Rx's Medication Instructions Recorded Last Taken Type methOCARBAMOL [Robaxin] 500 mg PO BID #30 tab 09/27/13 Unknown Rx Amoxicillin/K Clav Tab [Augmentin 1 tab PO Q12HR #14 tab 05/11/16 Unknown Rx 875 mg] traMADoL [Ultram 50 MG tab] 50 mg PO Q6HR PRN #20 tablet 11/20/16 Unknown Rx Ibuprofen [Motrin] 600 mg PO Q8H PRN #30 tablet 08/27/17 Unknown Rx Naproxen [Naprosyn TAB] 500 mg PO BID #30 tablet 09/22/17 Unknown Rx cephALEXin [Keflex] 500 mg PO BID #20 capsule 09/22/17 Unknown Rx Ondansetron [Zofran Odt] 4 mg PO Q8HR PRN #14 tab.rapdis 03/28/18 Unknown Rx guaiFENesin/CODEINE [Robitussin AC] 10 ml PO TID PRN #100 ml 03/28/18 Unknown Rx levoFLOXacin [Levaquin TAB] 500 mg PO QDAY #7 tablet 03/28/18 Unknown Rx HYDROcodone/APAP 5-325 [[place] 1 each PO Q6HR PRN #8 tablet 08/12/18 Unknown Rx 5-325 mg TAB] Sulfamethoxazole/Trimethoprim 1 each PO BID 10 Days #20 tablet 08/12/18 Unknown Rx [Bactrim DS TAB] Cetirizine HCl/Pseudoephedrine 1 each PO DAILY #30 tab.er.12h 07/03/20 Unknown Rx [Zyrtec-D Tablet] Fluticasone [Flonase] 1 spray NS QDAY #1 bottle 07/03/20 Unknown Rx Allergies Allergy/AdvReac Type Severity Reaction Status Date / Time No Known Allergies Allergy Verified 08/12/18 12:57 ED Review of Systems ROS: Stated complaint: FALL X 1 WEEK/LFT SIDE PAIN/REQUESTING COVID TEST Other details as noted in HPI Comment: All other systems reviewed and negative Constitutional: denies: chills, fever Eyes: denies: eye pain, eye discharge, vision change ENT: denies: ear pain, throat pain Respiratory: denies: cough, shortness of breath, wheezing Cardiovascular: denies: chest pain, palpitations Endocrine: no symptoms reported Gastrointestinal: denies: abdominal pain, nausea, diarrhea Genitourinary: denies: urgency, dysuria, discharge Musculoskeletal: denies: back pain, joint swelling, arthralgia Skin: denies: rash, lesions Neurological: denies: headache, weakness, paresthesias Psychiatric: denies: anxiety, depression Hematological/Lymphatic: denies: easy bleeding, easy bruising ED Past Medical Hx - Past Medical History Previous Medical History?: Yes Hx Hypertension: Yes Hx Diabetes: Yes (TYPE 2) Hx Arthritis: Yes Hx Psychiatric Treatment: Yes (DEPRESSION) Additional medical history: GOUT - Surgical History Additional Surgical History: hysterectomy, STENT IN RT. LEG - Social History Smoking Status: Never Smoker Substance Use Type: None - Medications Home Medications: Home Medications Medication Instructions Recorded Confirmed Last Taken Type Trazodone HCl 150 mg ONCE 06/30/13 06/30/1314 History Valsartan/Hydrochlorothiazide 5 mg ONCE 06/30/13 06/30/13 06/28/13 History [Valsartan-Hctz 80-12.5 mg] Warfarin [Coumadin] 5 mg PO ONCE 06/30/13 06/30/13 06/26/13 History allopurinoL [Zyloprim] 300 mg ONCE 06/30/13 06/30/13 06/27/13 History glipiZIDE [glipiZIDE ER] 5 mg ONCE 06/30/13 06/30/13 06/28/13 History methOCARBAMOL [Robaxin] 500 mg PO BID #30 tab 09/27/13 Unknown Rx Amoxicillin/K Clav Tab [Augmentin 1 tab PO Q12HR #14 tab 05/11/16 Unknown Rx 875 mg] traMADoL [Ultram 50 MG tab] 50 mg PO Q6HR PRN #20 tablet 11/20/16 Unknown Rx Ibuprofen [Motrin] 600 mg PO Q8H PRN #30 tablet 08/27/17 Unknown Rx Naproxen [Naprosyn TAB] 500 mg PO BID #30 tablet 09/22/17 Unknown Rx cephALEXin [Keflex] 500 mg PO BID #20 capsule 09/22/17 Unknown Rx Ondansetron [Zofran Odt] 4 mg PO Q8HR PRN #14 tab.rapdis 03/28/18 Unknown Rx guaiFENesin/CODEINE [Robitussin AC] 10 ml PO TID PRN #100 ml 03/28/18 Unknown Rx levoFLOXacin [Levaquin TAB] 500 mg PO QDAY #7 tablet 03/28/18 Unknown Rx HYDROcodone/APAP 5-325 [[place] 1 each PO Q6HR PRN #8 tablet 08/12/18 Unknown Rx 5-325 mg TAB] Sulfamethoxazole/Trimethoprim 1 each PO BID 10 Days #20 tablet 08/12/18 Unknown Rx [Bactrim DS TAB] Cetirizine HCl/Pseudoephedrine 1 each PO DAILY #30 tab.er.12h 07/03/20 Unknown Rx [Zyrtec-D Tablet] Fluticasone [Flonase] 1 spray NS QDAY #1 bottle 07/03/20 Unknown Rx ED Physical Exam - General Limitations: No Limitations General appearance: alert, in no apparent distress - Head Head exam: Present: atraumatic, normocephalic - Eye Eye exam: Present: normal appearance - ENT ENT exam: Present: mucous membranes moist, other (Patient has tenderness to palpation bilaterally of the frontal sinuses and left maxillary sinus.) - Neck Neck exam: Present: normal inspection - Respiratory Respiratory exam: Present: normal lung sounds bilaterally. Absent: respiratory distress - Cardiovascular Cardiovascular Exam: Present: regular rate, normal rhythm. Absent: systolic murmur, diastolic murmur, rubs, gallop - GI/Abdominal GI/Abdominal exam: Present: soft, normal bowel sounds. Absent: distended, tenderness - Extremities Exam Extremities exam: Present: normal inspection - Back Exam Back exam: Present: other (Patient has tenderness palpation of the L-spine midline and paralumbar region) - Neurological Exam Neurological exam: Present: alert, oriented X3, CN II-XII intact. Absent: motor sensory deficit - Psychiatric Psychiatric exam: Present: normal affect, normal mood - Skin Skin exam: Present: warm, dry, intact, normal color. Absent: rash ED Course Vital Signs 07/03/20 07/03/20 07/03/20 10:26 12:08 13:00 Temperature 97.7 F Pulse Rate 85 77 97 H Respiratory 20 15 14 Rate Blood Pressure 151/85 135/74 125/72 O2 Sat by Pulse 94 97 96 Oximetry 07/03/20 07/03/20 14:00 15:00 Temperature Pulse Rate 89 88 Respiratory 13 13 Rate Blood Pressure 171/117 132/86 O2 Sat by Pulse 97 97 Oximetry ED Medical Decision Making - Lab Data Result diagrams: 07/03/20 10:55 07/03/20 10:55 Lab Results 07/03/20 07/03/20 07/03/20 Range/Units 10:31 10:55 10:55 WBC 8.8 (4.5-11.0) K/mm3 RBC 5.44 H (3.65-5.03) M/mm3 Hgb 12.4 (10.1-14.3) gm/dl Hct 39.3 (30.3-42.9) % MCV 72 L (79-97) fl MCH 23 L (28-32) pg MCHC 32 (30-34) % RDW 15.1 (13.2-15.2) % Plt Count 278 (140-440) K/mm3 Lymph % (Auto) 16.5 (13.4-35.0) % [place] % (Auto) 9.1 H (0.0-7.3) % Eos % (Auto) 1.2 (0.0-4.3) % Baso % (Auto) 0.6 (0.0-1.8) % Lymph # (Auto) 1.4 (1.2-5.4) K/mm3 [place] # (Auto) 0.8 (0.0-0.8) K/mm3 Eos # (Auto) 0.1 (0.0-0.4) K/mm3 Baso # (Auto) 0.1 (0.0-0.1) K/mm3 Seg Neutrophils % 72.6 H (40.0-70.0) % Seg Neutrophils # 6.4 (1.8-7.7) K/mm3 PT 30.2 H (12.2-14.9) Sec. INR 2.84 H (0.87-1.13) APTT 61.0 H* (24.2-36.6) Sec. Sodium (137-145) mmol/L Potassium (3.6-5.0) mmol/L Chloride (98-107) mmol/L Carbon Dioxide (22-30) mmol/L Anion Gap mmol/L BUN (7-17) mg/dL Creatinine (0.6-1.2) mg/dL Estimated GFR ml/min BUN/Creatinine Ratio % Glucose (65-100) mg/dL POC Glucose 188 H (70-105) mg/dL Calcium (8.4-10.2) mg/dL Total Bilirubin (0.1-1.2) mg/dL AST (5-40) units/L ALT (7-56) units/L Alkaline Phosphatase (35-129) units/L Troponin T (0.00-0.029) ng/mL Total Protein (6.3-8.2) g/dL Albumin (3.9-5) g/dL Albumin/Globulin Ratio % 07/03/20 07/03/20 Range/Units 10:55 13:57 WBC (4.5-11.0) K/mm3 RBC (3.65-5.03) M/mm3 Hgb (10.1-14.3) gm/dl Hct (30.3-42.9) % MCV (79-97) fl MCH (28-32) pg MCHC (30-34) % RDW (13.2-15.2) % Plt Count (140-440) K/mm3 Lymph % (Auto) (13.4-35.0) % [place] % (Auto) (0.0-7.3) % Eos % (Auto) (0.0-4.3) % Baso % (Auto) (0.0-1.8) % Lymph # (Auto) (1.2-5.4) K/mm3 [place] # (Auto) (0.0-0.8) K/mm3 Eos # (Auto) (0.0-0.4) K/mm3 Baso # (Auto) (0.0-0.1) K/mm3 Seg Neutrophils % (40.0-70.0) % Seg Neutrophils # (1.8-7.7) K/mm3 PT (12.2-14.9) Sec. INR (0.87-1.13) APTT (24.2-36.6) Sec. Sodium 137 (137-145) mmol/L Potassium 3.8 (3.6-5.0) mmol/L Chloride 99.0 (98-107) mmol/L Carbon Dioxide 30 (22-30) mmol/L Anion Gap 12 mmol/L BUN 10 (7-17) mg/dL Creatinine 0.5 L (0.6-1.2) mg/dL Estimated GFR > 60 ml/min BUN/Creatinine Ratio 20 % Glucose 166 H (65-100) mg/dL POC Glucose (70-105) mg/dL Calcium 9.2 (8.4-10.2) mg/dL Total Bilirubin 0.60 (0.1-1.2) mg/dL AST 21 (5-40) units/L ALT 15 (7-56) units/L Alkaline Phosphatase 95 (35-129) units/L Troponin T < 0.010 < 0.010 (0.00-0.029) ng/mL Total Protein 7.1 (6.3-8.2) g/dL Albumin 4.2 (3.9-5) g/dL Albumin/Globulin Ratio 1.4 % - Radiology Data Radiology results: report reviewed - Medical Decision Making Discussed results with patient Critical care attestation.: If time is entered above; I have spent that time in minutes in the direct care of this critically ill patient, excluding procedure time. ED Disposition Clinical Impression: Closed head injury, Fall, Frontal sinus pain Disposition: - TO HOME OR SELFCARE Is pt being admited?: No Does the pt Need Aspirin: No Condition: Stable Instructions: Head Injury, Adult, [id number] Additional Instructions: Return if worse Prescriptions: Fluticasone [Flonase] 1 spray NS QDAY #1 bottle Cetirizine HCl/Pseudoephedrine [Zyrtec-D Tablet] 1 each PO DAILY #30 tab.er.12h Referrals: PRIMARY CAREMD [Primary Care Provider] - 3-5 Days OBEY DACOSTA MD [Staff Physician] - 3-5 Days Time of Disposition: 16:10
--- NOTE | 2020-07-03 13:46 | XRay Report ---
RIGHT KNEE 3 VIEW(S) INDICATION / CLINICAL INFORMATION: fall, right knee pain COMPARISON: None available. FINDINGS: BONES / JOINT(S): No acute fracture or malalignment. Advanced tricompartmental osteoarthritis of the right knee, preferentially involving the medial compartment. Osteochondral bodies are present about t he joint. No sizable joint effusion. SOFT TISSUES: No significant abnormality. ADDITIONAL FINDINGS: None. IMPRESSION: Advanced right knee osteoarthritis without acute process identified. Signer Name: Tommy Akers MD Signed: 07/03/2020 1:42 PM Workstation Name: [id number]
--- NOTE | 2020-07-03 13:46 | XRay Report ---
XR chest routine 2V INDICATION / CLINICAL INFORMATION: Chest Pain. COMPARISON: 03/28/2018 FINDINGS: SUPPORT DEVICES: None. HEART /PULMONARY VASCULATURE: No significant abnormality. LUNGS / PLEURA: No significant pulmonary or pleural abnormality. No pneumothorax. ADDITIONAL FINDINGS: No significant additional findings. IMPRESSION: 1. No acute findings. Signer Name: Tommy Akers MD Signed: 07/03/2020 1:42 PM Workstation Name: [id number]
[2020-07-03 17:19] VITALS: BP 145/99
== END 2020-07-03 17:18 | disposition home or self-care (01) ==
LOC: ED 10:13
DX: S09.90XA Unspecified injury of head, initial encounter (principal); J34.89 Other specified disorders of nose and nasal sinuses; I10 Essential (primary) hypertension; E11.9 Type 2 diabetes mellitus without complications; M19.90 Unspecified osteoarthritis, unspecified site; F32.9 Major depressive disorder, single episode, unspecified; M10.9 Gout, unspecified; Z90.710 Acquired absence of both cervix and uterus; Z98.890 Other specified postprocedural states; Z79.899 Other long term (current) drug therapy; W01.0XXA Fall on same level from slipping, tripping and stumbling without subsequent striking against object, initial encounter; Y93.89 Activity, other specified; Y92.096 Garden or yard of other non-institutional residence as the place of occurrence of the external cause; Y99.8 Other external cause status
CPT/HCPCS: 36415; 70450; 70486; 71046; 72131; 80053; 82962; 84484; 85025; 85610; 85730; 93005

== ENCOUNTER 2020-07-23 10:57 | Outpatient (CLI) | payer MEDICARE ==
--- NOTE | 2020-07-23 14:20 | Mammography Report ---
DIGITAL SCREENING MAMMOGRAM, 07/23/2020 CLINICAL INFORMATION / INDICATION: Routine screening TECHNIQUE: Digital bilateral 2D mammography was obtained in the craniocaudal and mediolateral obliqu e projections. This examination was interpreted without the benefit of Computer-Aided Detection star sis. COMPARISON: 06/09/2019 FINDINGS: Breast Density: There are scattered areas of fibroglandular density. No dominant mass, suspicious calcifications, or architectural distortion in either breast. IMPRESSION: No mammographic evidence of malignancy. Follow up recommendation: Routine yearly BI-RADS Category 1: Negative. A "normal" or negative report should not discourage follow up or biopsy of a clinically significant f inding. A written summary of these findings will be mailed to the patient. The patient will be entered into a mammography reporting system which will generate a reminder letter for the patient's next appointmen t at the appropriate interval. The [employer] recommends yearly mammograms starting at age 40 and continuing as l marianela as a woman is in good health. Breast MRI is recommended for women with an approximate 20-25% or greater lifetime risk of breast cancer, including women with a strong family history of breast or ova farrukh cancer or who have been treated for Hodgkin's disease. Signer Name: Ken Gonzalez MD Signed: 07/23/2020 2:16 PM Workstation Name: [email or web address]
== END 2020-07-23 10:58 | disposition home or self-care (01) ==
LOC: MAMMO 10:57
PROVIDERS: ATTEND Internal Medicine
DX: Z12.31 Encounter for screening mammogram for malignant neoplasm of breast (principal)
CPT/HCPCS: 77067

== ENCOUNTER 2021-06-11 13:43 | Inpatient (IN) | payer MEDICARE ==
[2021-06-11] MEDS ORDERED: FAMOTIDINE 20 MG/2 ML INJ IV ONE (14:34)
[2021-06-11] MEDS ORDERED: methylPREDNISolone Sod Succinate 125 MG/2 ML INJ IV ONE (14:34)
[2021-06-11] MEDS ORDERED: diphenhydrAMINE 50 MG/ML VIAL IV ONE (14:34)
[2021-06-11] MEDS ORDERED: MORPHINE 4 MG/1 ML INJ IV ONE (15:54)
[2021-06-11] MEDS ORDERED: ONDANSETRON 4 MG/2 ML INJ IV ONE (15:54)
--- NOTE | 2021-06-11 15:54 | Emergency Department Report ---
ED ENT HPI - General Chief complaint: Sore Throat Stated complaint: SWOLLEN TONGUE Time Seen by Provider: 06/11/21 14:31 Source: patient Mode of arrival: Stretcher Limitations: No Limitations - History of Present Illness Initial comments: 76-year-old female with a past medical history of hypertension also on Coumadin presents to the hospital complaining of of swelling mandible area and throat. Patient states she laid down at 11 AM and woke up with this swelling. She does complain of some dental caries without significant pain or fever. She states that she recently took a different dose of losartan today. She takes Coumadin for peripheral vascular disease. Patient has provided permission to speak to her family members regarding her care Patient's family can be reached at [phone]. Her [id number] Harmony Suarez and brother Srinivas Suarez - Related Data Home Medications Medication Instructions Recorded Confirmed Last Taken Trazodone HCl 150 mg ONCE 06/30/13 06/30/13 06/28/13 Valsartan/Hydrochlorothiazide 5 mg ONCE 06/30/13 06/30/13 06/28/13 [Valsartan-Hctz 80-12.5 mg] Warfarin [Coumadin] 5 mg PO ONCE 06/30/13 06/30/13 06/26/13 allopurinoL [Zyloprim] 300 mg ONCE 06/30/13 06/30/13 06/27/13 glipiZIDE [glipiZIDE ER] 5 mg ONCE 06/30/13 06/30/13 06/28/13 Previous Rx's Medication Instructions Recorded Last Taken Type methOCARBAMOL [Robaxin] 500 mg PO BID #30 tab 09/27/13 Unknown Rx Amoxicillin/K Clav Tab [Augmentin 1 tab PO Q12HR #14 tab 05/11/16 Unknown Rx 875 mg] traMADoL [Ultram 50 MG tab] 50 mg PO Q6HR PRN #20 tablet 11/20/16 Unknown Rx Ibuprofen [Motrin] 600 mg PO Q8H PRN #30 tablet 08/27/17 Unknown Rx Naproxen [Naprosyn TAB] 500 mg PO BID #30 tablet 09/22/17 Unknown Rx cephALEXin [Keflex] 500 mg PO BID #20 capsule 09/22/17 Unknown Rx Ondansetron [Zofran Odt] 4 mg PO Q8HR PRN #14 tab.rapdis 03/28/18 Unknown Rx guaiFENesin/CODEINE [Robitussin AC] 10 ml PO TID PRN #100 ml 03/28/18 Unknown Rx levoFLOXacin [Levaquin TAB] 500 mg PO QDAY #7 tablet 03/28/18 Unknown Rx HYDROcodone/APAP 5-325 [Britton 1 each PO Q6HR PRN #8 tablet 08/12/18 Unknown Rx 5-325 mg TAB] Sulfamethoxazole/Trimethoprim 1 each PO BID 10 Days #20 tablet 08/12/18 Unknown Rx [Bactrim DS TAB] Cetirizine HCl/Pseudoephedrine 1 each PO DAILY #30 tab.er.12h 07/03/20 Unknown Rx [Zyrtec-D Tablet] Fluticasone [Flonase] 1 spray NS QDAY #1 bottle 07/03/20 Unknown Rx Allergies Allergy/AdvReac Type Severity Reaction Status Date / Time No Known Allergies Allergy Verified 06/11/21 13:50 ED Dental HPI - General Chief complaint: Sore Throat Stated complaint: SWOLLEN TONGUE Time Seen by Provider: 06/11/21 14:31 Source: patient Mode of arrival: Stretcher Limitations: No Limitations - Related Data Home Medications Medication Instructions Recorded Confirmed Last Taken Trazodone HCl 150 mg ONCE 06/30/13 06/30/13 06/28/13 Valsartan/Hydrochlorothiazide 5 mg ONCE 06/30/13 06/30/13 06/28/13 [Valsartan-Hctz 80-12.5 mg] Warfarin [Coumadin] 5 mg PO ONCE 06/30/13 06/30/13 06/26/13 allopurinoL [Zyloprim] 300 mg ONCE 06/30/13 06/30/13 06/27/13 glipiZIDE [glipiZIDE ER] 5 mg ONCE 06/30/13 06/30/13 06/28/13 Previous Rx's Medication Instructions Recorded Last Taken Type methOCARBAMOL [Robaxin] 500 mg PO BID #30 tab 09/27/13 Unknown Rx Amoxicillin/K Clav Tab [Augmentin 1 tab PO Q12HR #14 tab 05/11/16 Unknown Rx 875 mg] traMADoL [Ultram 50 MG tab] 50 mg PO Q6HR PRN #20 tablet 11/20/16 Unknown Rx Ibuprofen [Motrin] 600 mg PO Q8H PRN #30 tablet 08/27/17 Unknown Rx Naproxen [Naprosyn TAB] 500 mg PO BID #30 tablet 09/22/17 Unknown Rx cephALEXin [Keflex] 500 mg PO BID #20 capsule 09/22/17 Unknown Rx Ondansetron [Zofran Odt] 4 mg PO Q8HR PRN #14 tab.rapdis 03/28/18 Unknown Rx guaiFENesin/CODEINE [Robitussin AC] 10 ml PO TID PRN #100 ml 03/28/18 Unknown Rx levoFLOXacin [Levaquin TAB] 500 mg PO QDAY #7 tablet 03/28/18 Unknown Rx HYDROcodone/APAP 5-325 [Britton 1 each PO Q6HR PRN #8 tablet 08/12/18 Unknown Rx 5-325 mg TAB] Sulfamethoxazole/Trimethoprim 1 each PO BID 10 Days #20 tablet 08/12/18 Unknown Rx [Bactrim DS TAB] Cetirizine HCl/Pseudoephedrine 1 each PO DAILY #30 tab.er.12h 07/03/20 Unknown Rx [Zyrtec-D Tablet] Fluticasone [Flonase] 1 spray NS QDAY #1 bottle 07/03/20 Unknown Rx Allergies Allergy/AdvReac Type Severity Reaction Status Date / Time No Known Allergies Allergy Verified 06/11/21 13:50 ED Review of Systems ROS: Stated complaint: SWOLLEN TONGUE Other details as noted in HPI Comment: All other systems reviewed and negative ED Past Medical Hx - Past Medical History Hx Hypertension: Yes Hx Diabetes: Yes (TYPE 2) Hx Arthritis: Yes Hx Psychiatric Treatment: Yes (DEPRESSION) Additional medical history: GOUT - Surgical History Additional Surgical History: hysterectomy, STENT IN RT. LEG - Social History Smoking Status: Never Smoker Substance Use Type: None - Medications Home Medications: Home Medications Medication Instructions Recorded Confirmed Last Taken Type Trazodone HCl 150 mg ONCE 06/30/13 06/30/13 06/28/13 History Valsartan/Hydrochlorothiazide 5 mg ONCE 06/30/13 06/30/13 06/28/13 History [Valsartan-Hctz 80-12.5 mg] Warfarin [Coumadin] 5 mg PO ONCE 06/30/13 06/30/13 06/26/13 History allopurinoL [Zyloprim] 300 mg ONCE 06/30/13 06/30/13 06/27/13 History glipiZIDE [glipiZIDE ER] 5 mg ONCE 06/30/13 06/30/13 06/28/13 History methOCARBAMOL [Robaxin] 500 mg PO BID #30 tab 09/27/13 Unknown Rx Amoxicillin/K Clav Tab [Augmentin 1 tab PO Q12HR #14 tab 05/11/16 Unknown Rx 875 mg] traMADoL [Ultram 50 MG tab] 50 mg PO Q6HR PRN #20 tablet 11/20/16 Unknown Rx Ibuprofen [Motrin] 600 mg PO Q8H PRN #30 tablet 08/27/17 Unknown Rx Naproxen [Naprosyn TAB] 500 mg PO BID #30 tablet 09/22/17 Unknown Rx cephALEXin [Keflex] 500 mg PO BID #20 capsule 09/22/17 Unknown Rx Ondansetron [Zofran Odt] 4 mg PO Q8HR PRN #14 tab.rapdis 03/28/18 Unknown Rx guaiFENesin/CODEINE [Robitussin AC] 10 ml PO TID PRN #100 ml 03/28/18 Unknown Rx levoFLOXacin [Levaquin TAB] 500 mg PO QDAY #7 tablet 03/28/18 Unknown Rx HYDROcodone/APAP 5-325 [Britton 1 each PO Q6HR PRN #8 tablet 08/12/18 Unknown Rx 5-325 mg TAB] Sulfamethoxazole/Trimethoprim 1 each PO BID 10 Days #20 tablet 08/12/18 Unknown Rx [Bactrim DS TAB] Cetirizine HCl/Pseudoephedrine 1 each PO DAILY #30 tab.er.12h 07/03/20 Unknown Rx [Zyrtec-D Tablet] Fluticasone [Flonase] 1 spray NS QDAY #1 bottle 07/03/20 Unknown Rx ED Physical Exam - General Limitations: No Limitations - Other Other exam information: General: No acute distress Head: Atraumatic Eyes: normal appearance ENT: Unable to visualize posterior pharynx, patient has significant submental swelling and tenderness with some mild ecchymosis to the floor the mouth. Mild tenderness to upper anterior neck without neck swelling or stridor. Patient able to swallow secretions. Patient is hoarse when she speaks Neck: Normal appearance, no midline tenderness Chest: Clear to auscultation bilaterally CV: Regular rate and rhythm Abdomen: Soft, normal bowel sounds, nontender, nondistended, no rebound or guarding Back: Normal inspection Extremity: Normal inspection, full range of motion Neuro: Alert O x 3, no facial asymmetry, speech clear, no gross motor sensory deficit Psych: Appropriate behavior Skin: No rash ED Course Vital Signs 06/11/21 06/11/21 06/11/21 13:47 15:43 15:44 Temperature 98.3 F 98.9 F Pulse Rate 72 82 Pulse Rate [ From Monitor] Respiratory 16 18 17 Rate Blood Pressure Blood Pressure 157/88 186/92 [Left] O2 Sat by Pulse 98 100 Oximetry 06/11/21 06/11/21 06/11/21 15:45 16:01 16:33 Temperature Pulse Rate 83 83 99 H Pulse Rate [ From Monitor] Respiratory 16 13 16 Rate Blood Pressure Blood Pressure [Left] O2 Sat by Pulse 99 97 Oximetry 06/11/21 06/11/21 06/11/21 16:45 17:01 17:15 Temperature Pulse Rate 89 89 88 Pulse Rate [ From Monitor] Respiratory 17 18 13 Rate Blood Pressure Blood Pressure [Left] O2 Sat by Pulse 98 97 98 Oximetry 06/11/21 06/11/21 06/11/21 19:58 23:08 23:11 Temperature 98 F Pulse Rate 123 H 117 H Pulse Rate [ 98 H From Monitor] Respiratory 16 16 Rate Blood Pressure 88/56 Blood Pressure [Left] O2 Sat by Pulse 97 92 100 Oximetry - Reevaluation(s) Reevaluation #1: 06/11/21 15:53 pt informs me that she is on coumadin (and cant take asa) - Consultations Consultation #1: 06/11/21 17:11 I spoke to anesthesia upon patient's arrival to the ED to advise him of possible difficult airway and need for intubation. Dr. Caballero came to evaluate pt. Plan was to medicate patient and observe and try to get CAT scan to determine airway swelling if patient was stable enough. I was able to perform CAT scan which revealed significant findings of Ludwigs angina swelling. I called by Dr. Caballero to suggest intubation and he will come to the bedside to assist with in tubation. I called patient's family member to update them and I also informed the patient of need to intubation and patient provided consent. Patient also was informed of possibility of requiring a surgical airway. ED Medical Decision Making - Lab Data Result diagrams: 06/14/21 10:45 06/14/21 06:15 Lab Results 06/11/21 06/11/21 06/11/21 Range/Units 15:23 15:23 19:20 WBC 12.0 H (4.5-11.0) K/mm3 RBC 4.84 (3.65-5.03) M/mm3 Hgb 10.3 (10.1-14.3) gm/dl Hct 34.6 (30.3-42.9) % MCV 72 L (79-97) fl MCH 21 L (28-32) pg MCHC 30 (30-34) % RDW 17.5 H (13.2-15.2) % Plt Count 306 (140-440) K/mm3 Lymph % (Auto) 12.9 L (13.4-35.0) % [place] % (Auto) 8.6 H (0.0-7.3) % Eos % (Auto) 0.7 (0.0-4.3) % Baso % (Auto) 0.4 (0.0-1.8) % Lymph # (Auto) 1.5 (1.2-5.4) K/mm3 [place] # (Auto) 1.0 H (0.0-0.8) K/mm3 Eos # (Auto) 0.1 (0.0-0.4) K/mm3 Baso # (Auto) 0.1 (0.0-0.1) K/mm3 Seg Neutrophils % 77.4 H (40.0-70.0) % Seg Neutrophils # 9.3 H (1.8-7.7) K/mm3 Sodium 137 (137-145) mmol/L Potassium 3.7 (3.6-5.0) mmol/L Chloride 99.8 (98-107) mmol/L Carbon Dioxide 25 (22-30) mmol/L Anion Gap 16 mmol/L BUN 10 (7-17) mg/dL Creatinine 0.6 (0.6-1.2) mg/dL Estimated GFR > 60 ml/min BUN/Creatinine Ratio 17 % Glucose 144 H (65-100) mg/dL Calcium 8.7 (8.4-10.2) mg/dL Total Bilirubin 0.30 (0.1-1.2) mg/dL AST 20 (5-40) units/L ALT 13 (7-56) units/L Alkaline Phosphatase 102 (35-129) units/L Total Protein 7.1 (6.3-8.2) g/dL Albumin 3.9 (3.9-5) g/dL Albumin/Globulin Ratio 1.2 % Blood Type O POSITIVE 06/11/21 Range/Units 19:29 WBC 15.8 H (4.5-11.0) K/mm3 RBC 4.34 (3.65-5.03) M/mm3 Hgb 9.4 L (10.1-14.3) gm/dl Hct 31.0 (30.3-42.9) % MCV 72 L (79-97) fl MCH 22 L (28-32) pg MCHC 30 (30-34) % RDW 17.4 H (13.2-15.2) % Plt Count 332 (140-440) K/mm3 Lymph % (Auto) 9.2 L (13.4-35.0) % [place] % (Auto) 1.4 (0.0-7.3) % Eos % (Auto) 0.2 (0.0-4.3) % Baso % (Auto) 0.2 (0.0-1.8) % Lymph # (Auto) 1.4 (1.2-5.4) K/mm3 [place] # (Auto) 0.2 (0.0-0.8) K/mm3 Eos # (Auto) 0.0 (0.0-0.4) K/mm3 Baso # (Auto) 0.0 (0.0-0.1) K/mm3 Seg Neutrophils % 89.0 H (40.0-70.0) % Seg Neutrophils # 14.0 H (1.8-7.7) K/mm3 Sodium (137-145) mmol/L Potassium (3.6-5.0) mmol/L Chloride (98-107) mmol/L Carbon Dioxide (22-30) mmol/L Anion Gap mmol/L BUN (7-17) mg/dL Creatinine (0.6-1.2) mg/dL Estimated GFR ml/min BUN/Creatinine Ratio % Glucose (65-100) mg/dL Calcium (8.4-10.2) mg/dL Total Bilirubin (0.1-1.2) mg/dL AST (5-40) units/L ALT (7-56) units/L Alkaline Phosphatase (35-129) units/L Total Protein (6.3-8.2) g/dL Albumin (3.9-5) g/dL Albumin/Globulin Ratio % Blood Type - Radiology Data Radiology results: report reviewed CT neck w con HISTORY: mandibule swelling, sob, voice change COMPARISON: None. TECHNIQUE: CT of the neck is performed. All CT scans at this location are performed using CT dose reduction for ALARA by means of automated exposure control. FINDINGS: There is significant right floor of mouth swelling with extension into the submandibular, and submental spaces. There is significant thickening and inflammation involving the right pharyngeal wall, the parapharyngeal, and retropharyngeal spaces to the level of the thyroid cartilage. The epiglottis is significantly swollen and so are the aryepiglottic folds resulting in significant airway narrowing at this level. No lymphadenopathy. Submandibular and parotid glands are symmetric. There are a few scattered caries but no periapical lucencies. Nonspecific calcification along the right lateral oropharynx. No definite stones seen within the parotid or submandibular gland ducts. No suspicious osseous lesion. IMPRESSION: 1. Findings consistent with Ludwigs angina with significant narrowing of the airway at the level of epiglottis and aryepiglottic folds. - Medical Decision Making 76-year-old female presented to the hospital complaining of submental swelling with airway swelling and hoarse. Anesthesia was contacted emergently to evaluate patient at the bedside in anticipation for difficult intubation based on patient's presenting complaints. I decided to medicate patient with Solu- Medrol, Benadryl, and Pepcid and reevaluate for improvement prior to intubation. Patient tolerated CT neck with IV contrast which revealed significant airway swelling. I discussed intubation with patient with possibility for difficult airway and need for surgical airway if we are unable to pass the ET tube. Also explained this to patient's family members via phone. Patient consented to intubation and airway procedure. Dr. Caballero anesthesiologist and midlevel anesthesiologist at the bedside attempted various intubation techniques with video laryngoscopy and fiberoptic scope. Please refer to their airway note. Patient was unable to be intubated orally therefore surgical airway was attempted. Dr. Patricia surgeon came to the bedside after initial surgical airway. Based on imaging studies airway appeared to be right intrathoracic and therefore removed. At the time of then placed a tracheostomy airway and took patient to the bedside. I was at the bedside assisting throughout various attempts. FFP and vitamin K ordered due to Coumadin coagulopathy with bleeding. Repeat CBC, coags, and type and screen ordered. Patient has had Decadron and Unasyn ordered as well. I called patient's family members Critical Care Time: Yes Critical care time in (mins) excluding proc time.: 75 Critical care attestation.: If time is entered above; I have spent that time in minutes in the direct care of this critically ill patient, excluding procedure time. Critical Care Time: 75 Minutes of critical care time excluding procedures were used in the care of the patient. Admit evaluated patient once she entered the room. I discussed treatment plan with the nursing team members. I reviewed electronic record. I spoke with family to obtain medical history. Patient required multiple interventions and reassessments. Anesthesiology consulted for assistance with intubation ED Disposition Clinical Impression: Ludwigs angina, Difficult airway for intubation, Narrowing of airway Disposition: ADMITTED INPATIENT Is pt being admited?: Yes Condition: Stable Time of Disposition: 19:52
[2021-06-11 15:57] LABS: Basophils # (Auto) 0.1 K/mm3 (0.0-0.1); Basophils % (Auto) 0.4 % (0.0-1.8); Eosinophils # (Auto) 0.1 K/mm3 (0.0-0.4); Eosinophils % (Auto) 0.7 % (0.0-4.3); Lymphocytes # (Auto) 1.5 K/mm3 (1.2-5.4); Lymphocytes % (Auto) 12.9 % (13.4-35.0); Mean Corpuscular HGB Conc 30 % (30-34); Mean Corpuscular Volume 72 fl (79-97); Monocytes % (Auto) 8.6 % (0.0-7.3); Platelet Count 306 K/mm3 (140-440); Red Blood Count 4.84 M/mm3 (3.65-5.03); Red Cell Distribution Width 17.5 % (13.2-15.2)
[2021-06-11 16:02] LABS: Alanine Aminotransferase 13 units/L (7-56); Albumin 3.9 g/dL (3.9-5); Blood Urea Nitrogen 10 mg/dL (7-17); Calcium 8.7 mg/dL (8.4-10.2); Hemolysis Index 4
[2021-06-11 16:06] LABS: BUN/Creatinine Ratio 17
[2021-06-11 16:30] LABS: Hematocrit 34.6 % (30.3-42.9); Hemoglobin 10.3 gm/dl (10.1-14.3)
[2021-06-11] MEDS ORDERED: AMPICILLIN/SULBACTA 3GM/100ML 3 GM/100 ML BAG IV ONE (17:10)
--- NOTE | 2021-06-11 17:12 | Cat Scan Report ---
CT neck w con HISTORY: mandibule swelling, sob, voice change COMPARISON: None. TECHNIQUE: CT of the neck is performed. All CT scans at this location are performed using CT dose red uction for ALARA by means of automated exposure control. FINDINGS: There is significant right floor of mouth swelling with extension into the submandibular, and subment al spaces. There is significant thickening and inflammation involving the right pharyngeal wall, the parapharyngeal, and retropharyngeal spaces to the level of the thyroid cartilage. The epiglottis is s ignificantly swollen and so are the aryepiglottic folds resulting in significant airway narrowing at this level. No lymphadenopathy. Submandibular and parotid glands are symmetric. There are a few scattered caries but no periapical lucencies. Nonspecific calcification along the right lateral oropharynx. No definit e stones seen within the parotid or submandibular gland ducts. No suspicious osseous lesion. IMPRESSION: 1. Findings consistent with Ludwigs angina with significant narrowing of the airway at the level of e piglottis and aryepiglottic folds. Signer Name: Jaime Hall MD Signed: 06/11/2021 5:07 PM Workstation Name: [id number]
[2021-06-11] MEDS ORDERED: propofoL 200 MG/20 ML VIAL IV ONE ×3 (17:29→18:33)
[2021-06-11] MEDS ORDERED: SODIUM CHLORIDE 0.9% 1000 ML 1,000 ML ONE ×3 (17:35→22:24)
[2021-06-11] MEDS ORDERED: KETAMINE 500 MG/5 ML VIAL MDV ONE (17:35)
[2021-06-11] MEDS ORDERED: ROCURONIUM 50 MG/5 ML INJ IV ONE ×2 (17:35→21:56)
[2021-06-11] MEDS ORDERED: LIDOCAINE PF 100 MG/5 ML (CARDIAC SYRINGE) IV ONE (17:35)
[2021-06-11] MEDS ORDERED: MIDAZOLAM 5 MG/5 ML INJ MDV IV ONE (17:35)
[2021-06-11] MEDS ORDERED: SUCCINYLCHOLINE CHLORIDE 200 MG/10 ML INJ MDV ONE (17:35)
[2021-06-11] MEDS ORDERED: PHYTONADIONE(ADULT ONLY) 10 MG in SODIUM CHLORIDE 0.9% 50 ML IV ONE (19:08)
[2021-06-11] MEDS ORDERED: dexAMETHasone 20 MG in SODIUM CHLORIDE 0.9% 50 ML IV ONE (19:10)
[2021-06-11 19:37] LABS: Basophils % (Auto) 0.2 % (0.0-1.8); Eosinophils % (Auto) 0.2 % (0.0-4.3); Hemoglobin 9.4 gm/dl (10.1-14.3); Lymphocytes # (Auto) 1.4 K/mm3 (1.2-5.4); Lymphocytes % (Auto) 9.2 % (13.4-35.0); Mean Corpuscular HGB Conc 30 % (30-34); Mean Corpuscular Volume 72 fl (79-97); Monocytes # (Auto) 0.2 K/mm3 (0.0-0.8); Monocytes % (Auto) 1.4 % (0.0-7.3); Platelet Count 332 K/mm3 (140-440); Red Blood Count 4.34 M/mm3 (3.65-5.03); Red Cell Distribution Width 17.4 % (13.2-15.2)
[2021-06-11] MEDS ORDERED: SODIUM CHLORIDE 0.9% 500 ML 500 ML IV ONE ×2 (20:30→20:51)
[2021-06-11 20:32] LABS: INR 8.18 (0.87-1.13); Partial Thromboplastin Time 71.7 Sec. (24.2-36.6)
--- NOTE | 2021-06-11 20:40 | History and Physical Report ---
History of Present Illness Date of examination: 06/11/21 Date of admission: 06/11/2021 Chief complaint: Swelling of the mouth and difficulty breathing since 11 AM History of present illness: 76-year-old a past medical history of hypertension, type 2 diabetes, gout and on Coumadin for unknown reasons comes into the hospital for swelling of the tongue and the submandibular area and the whole throat. Patient was fine until 11 AM. Woke up with swelling. Patient has a history of some dental caries. No significant pain or fever. Swelling of the tongue and the mouth causing her difficulty breathing. CAT scan of the head and neck was done in the emergency room which confirmed Gael's angina--(swelling of the sublingual and submaxillary space in the bilateral compartments). Anesthesia was called for intubation because it is going to be difficult intubation. Anesthesia attempted intubation but could not be done. Surgery was requested to the emergency crico thyroidectomy. Cricothyroidotomy was attempted in the emergency room and then the patient was taken to the operating room for tracheostomy. Patient also developed pneumothorax during the intubation procedure. Patient bleeding excessively because of her being on Coumadin and INR is around 8. Multiple FFP's and vitamin K significant to bring the pro time down. Patient has emergent tracheostomy and chest tube for pneumothorax. Discussed with Dr. Manzanares the whole case. He agrees with FFP's and IV vitamin K. He will place a larger chest tube in the morning.. Patient on vent support. - Past Medical History --Hypertension: Yes --Diabetes: Yes (TYPE 2) --Arthritis: Yes --Psychiatric Treatment: Yes (DEPRESSION) --Additional medical history: GOUT - Surgical History --Hysterectomy, -- STENT IN RT. LEG - Social History --Smoking Status: Never Smoker --Substance Use Type: None -Family history not known Review of Systems ROS: Stated complaint: SWOLLEN TONGUE Other details as noted in HPI Comment: All other systems reviewed and negative Medications and Allergies Allergies Allergy/AdvReac Type Severity Reaction Status Date / Time No Known Allergies Allergy Verified 06/11/21 13:50 Home Medications Medication Instructions Recorded Confirmed Last Taken Type Trazodone HCl 150 mg ONCE 06/30/13 06/30/13 06/28/13 History Valsartan/Hydrochlorothiazide 5 mg ONCE 06/30/13 06/30/13 06/28/13 History [Valsartan-Hctz 80-12.5 mg] Warfarin [Coumadin] 5 mg PO ONCE 06/30/13 06/30/13 06/26/13 History allopurinoL [Zyloprim] 300 mg ONCE 06/30/13 06/30/13 06/27/13 History glipiZIDE [glipiZIDE ER] 5 mg ONCE 06/30/13 06/30/13 06/28/13 History methOCARBAMOL [Robaxin] 500 mg PO BID #30 tab 09/27/13 Unknown Rx Amoxicillin/K Clav Tab [Augmentin 1 tab PO Q12HR #14 tab 05/11/16 Unknown Rx 875 mg] traMADoL [Ultram 50 MG tab] 50 mg PO Q6HR PRN #20 tablet 11/20/16 Unknown Rx Ibuprofen [Motrin] 600 mg PO Q8H PRN #30 tablet 08/27/17 Unknown Rx Naproxen [Naprosyn TAB] 500 mg PO BID #30 tablet 09/22/17 Unknown Rx cephALEXin [Keflex] 500 mg PO BID #20 capsule 09/22/17 Unknown Rx Ondansetron [Zofran Odt] 4 mg PO Q8HR PRN #14 tab.rapdis 03/28/18 Unknown Rx guaiFENesin/CODEINE [Robitussin AC] 10 ml PO TID PRN #100 ml 03/28/18 Unknown Rx levoFLOXacin [Levaquin TAB] 500 mg PO QDAY #7 tablet 03/28/18 Unknown Rx HYDROcodone/APAP 5-325 [Silver 1 each PO Q6HR PRN #8 tablet 08/12/18 Unknown Rx 5-325 mg TAB] Sulfamethoxazole/Trimethoprim 1 each PO BID 10 Days #20 tablet 08/12/18 Unknown Rx [Bactrim DS TAB] Cetirizine HCl/Pseudoephedrine 1 each PO DAILY #30 tab.er.12h 07/03/20 Unknown Rx [Zyrtec-D Tablet] Fluticasone [Flonase] 1 spray NS QDAY #1 bottle 07/03/20 Unknown Rx Exam - Constitutional Vitals: Temp Pulse Resp BP Pulse Ox 98.9 F 123 H 13 186/92 97 06/11/21 15:44 06/11/21 19:58 06/11/21 17:15 06/11/21 15:44 06/11/21 19:58 General appearance: Present: severe distress - EENT Eyes: Present: PERRL ENT: hearing intact, oropharyngeal erythema, poor dentition, other (Swelling of the tongue and the sublingual space) - Neck Neck: Present: supple, normal ROM - Respiratory Respiratory effort: normal Respiratory: bilateral: CTA - Cardiovascular Heart rate: 98 Rhythm: regular Heart Sounds: Present: S1 & S2. Absent: rub, click - Extremities Extremities: pulses symmetrical, No edema Peripheral Pulses: within normal limits - Abdominal General gastrointestinal: Present: soft, non-tender, non-distended, normal bowel sounds Female genitourinary: Present: normal - Integumentary Integumentary: Present: clear, warm, dry - Musculoskeletal Musculoskeletal: gait normal, strength equal bilaterally - Psychiatric Psychiatric: appropriate mood/affect, intact judgment & insight - Neurologic Neurologic: CNII-XII intact, moves all extremities Results - Labs CBC & Chem 7: 06/12/21 01:45 06/12/21 01:45 Labs: Laboratory Last Values WBC 15.8 K/mm3 (4.5-11.0) H 06/11/21 19:29 RBC 4.34 M/mm3 (3.65-5.03) 06/11/21 19:29 Hgb 9.4 gm/dl (10.1-14.3) L 06/11/21 19:29 Hct 31.0 % (30.3-42.9) 06/11/21 19:29 MCV 72 fl (79-97) L 06/11/21 19:29 MCH 22 pg (28-32) L 06/11/21 19:29 MCHC 30 % (30-34) 06/11/21 19:29 RDW 17.4 % (13.2-15.2) H 06/11/21 19:29 Plt Count 332 K/mm3 (140-440) 06/11/21 19:29 Lymph % (Auto) 9.2 % (13.4-35.0) L 06/11/21 19:29 [place]oup % (Auto) 1.4 % (0.0-7.3) 06/11/21 19:29 Eos % (Auto) 0.2 % (0.0-4.3) 06/11/21 19:29 Baso % (Auto) 0.2 % (0.0-1.8) 06/11/21 19:29 Lymph # (Auto) 1.4 K/mm3 (1.2-5.4) 06/11/21 19: Loup # (Auto) 0.2 K/mm3 (0.0-0.8) 06/11/21 19:29 Eos # (Auto) 0.0 K/mm3 (0.0-0.4) 06/11/21 19:29 Baso # (Auto) 0.0 K/mm3 (0.0-0.1) 06/11/21 19: Seg Neutrophils % 89.0 % (40.0-70.0) H 06/11/21: Seg Neutrophils # 14.0 K/mm3 (1.8-7.7) H 06/11/21 19: PT 72.9 Sec. (12.2-14.9) H 06/11/21 19: INR 8.18 (0.87-1.13) H* 06/11/21 19: APTT 71.7 Sec. (24.2-36.6) H* 06/11/21 19:29 Sodium 137 mmol/L (137-145) 06/11/21 15:23 Potassium 3.7 mmol/L (3.6-5.0) 06/11/21 15:23 Chloride 99.8 mmol/L (98-107) 06/11/21 15:23 Carbon Dioxide 25 mmol/L (22-30) 06/11/21 15:23 Anion Gap 16 mmol/L 06/11/21 15:23 BUN 10 mg/dL (7-17) 06/11/21 15:23 Creatinine 0.6 mg/dL (0.6-1.2) 06/11/21 15:23 Estimated GFR > 60 ml/min 06/11/21 15:23 BUN/Creatinine Ratio 17 % 06/11/21 15:23 Glucose 144 mg/dL (65-100) H 06/11/21 15:23 Calcium 8.7 mg/dL (8.4-10.2) 06/11/21 15:23 Total Bilirubin 0.30 mg/dL (0.1-1.2) 06/11/21 15:23 AST 20 units/L (5-40) 06/11/21 15:23 ALT 13 units/L (7-56) 06/11/21 15:23 Alkaline Phosphatase 102 units/L (35-129) 06/11/21 15:23 Total Protein 7.1 g/dL (6.3-8.2) 06/11/21 15:23 Albumin 3.9 g/dL (3.9-5) 06/11/21 15:23 Albumin/Globulin Ratio 1.2 % 06/11/21 15:23 Blood Type O POSITIVE 06/11/21 19:20 Antibody Screen Negative 06/11/21 19:20 Crossmatch See Detail 06/11/21 19:20 Short CBC 06/11/21 06/11/21 06/11/21 Range/Units 15:23 19:29 23:21 WBC 12.0 H 15.8 H 10.2 (4.5-11.0) K/mm3 Hgb 10.3 9.4 L 10.8 (10.1-14.3) gm/dl Hct 34.6 31.0 35.4 (30.3-42.9) % Plt Count 306 332 131 L (140-440) K/mm3 06/12/21 Range/Units 01:45 WBC 21.6 H (4.5-11.0) K/mm3 Hgb 6.7 L D (10.1-14.3) gm/dl Hct 22.4 L D (30.3-42.9) % Plt Count 246 (140-440) K/mm3 BMP 06/11/21 06/11/21 06/12/21 15:23 23:21 01:45 Sodium 137 149 H D 140 D Potassium 3.7 4.1 5.6 H D Chloride 99.8 124.3 H 104.0 Carbon Dioxide 25 8 L* D 20 L D BUN 10 9 16 Creatinine 0.6 0.3 L 0.9 D Glucose 144 H 628 H* 368 H Calcium 8.7 2.4 L* D 7.1 L D Cardiac Enzymes 06/11/21 Range/Units 23:21 Troponin T < 0.010 (0.00-0.029) ng/mL Liver Function 06/11/21 06/11/21 06/12/21 Range/Units 15:23 23:21 01:45 Total Bilirubin 0.30 < 0.20 0.50 (0.1-1.2) mg/dL AST 20 7 22 (5-40) units/L ALT 13 < 5 L 12 (7-56) units/L Alkaline Phosphatase 102 19 L 72 (35-129) units/L Albumin 3.9 0.8 L 3.1 L (3.9-5) g/dL - Imaging and Cardiology Imaging and Cardiology: CT neck w con HISTORY: mandibule swelling, sob, voice change COMPARISON: None. TECHNIQUE: CT of the neck is performed. All CT scans at this location are performed using CT dose reduction for ALARA by means of automated exposure control. FINDINGS: There is significant right floor of mouth swelling with extension into the submandibular, and submental spaces. There is significant thickening and inflammation involving the right pharyngeal wall, the parapharyngeal, and retropharyngeal spaces to the level of the thyroid cartilage. The epiglottis is significantly swollen and so are the aryepiglottic folds resulting in significant airway narrowing at this level. No lymphadenopathy. Submandibular and parotid glands are symmetric. There are a few scattered caries but no periapical lucencies. Nonspecific calcification along the right lateral oropharynx. No definite stones seen within the parotid or submandibular gland ducts. No suspicious osseous lesion. IMPRESSION: 1. Findings consistent with Ludwigs angina with significant narrowing of the airway at the level of epiglottis and aryepiglottic folds. Chest x-ray moderate to large right-sided pneumothorax Endotracheal tube terminates about 3 cm above the devin Assessment and Plan Advance Directives: Yes - Patient Problems (1) Acute respiratory failure with hypoxia Current Visit: Yes Status: Acute Plan to address problem: Patient had a difficult intubation followed by trach critical thyroidectomy and tracheostomy. Airway secured. Patient was persistently hypoxic for about 45 minutes from the arrival to the emergency room to critical thyroidectomy. Anoxic encephalopathy. To be considered. Continue mechanical ventilation. Patient has pneumothorax which complicates mechanical ventilation use. Patient has chest tube. (2) Ludwigs angina Current Visit: Yes Status: Acute Plan to address problem: Patient initiated on IV cefepime, IV vancomycin and IV Solu-Medrol to decrease the swelling. (3) Sepsis Current Visit: Yes Status: Acute Plan to address problem: Possibly from the dental caries and Jeremiah's angina IV cefepime and IV vancomycin (4) Pneumothorax, right Current Visit: Yes Status: Acute Plan to address problem: Small chest tube was placed The chest tube to be placed in the morning (5) Coagulopathy Current Visit: Yes Status: Acute Plan to address problem: Patient's INR is around 8 Aggressively treated with multiple FFP's and vitamin K IV. To bring down the INR to manageable levels of around 1-1.5 Patient has excessive bleed near the tracheostomy tube (6) Type 2 diabetes mellitus Current Visit: Yes Status: Chronic Qualifiers: Diabetes mellitus group home insulin use: without local intermodal truck driver use Plan to address problem: Coverage for now Check hemoglobin A1c (7) Acute blood loss anemia Current Visit: Yes Status: Acute Plan to address problem: Transfuse 2 to 4 units of packed red blood cells Monitor hemoglobin and hematocrit (8) Tracheostomy care Current Visit: Yes Status: Acute Plan to address problem: Patient had emergent cricothyroidotomy followed by tracheostomy (9) DVT prophylaxis Current Visit: Yes Status: Acute Plan to address problem: Patient is bleeding excessively No anticoagulation Only SCDs and GI prophylaxis (10) Advance care planning Current Visit: Yes Status: Acute
[2021-06-11] MEDS ORDERED: ONDANSETRON 4 MG/2 ML INJ IV PRN (20:42)
[2021-06-11] MEDS ORDERED: ACETAMINOPHEN 325 MG TAB PO PRN (20:42)
[2021-06-11] MEDS ORDERED: MORPHINE 2 MG/1 ML INJ IV PRN (20:42)
[2021-06-11] MEDS ORDERED: METOCLOPRAMIDE 10 MG/2 ML INJ IV PRN (20:42)
[2021-06-11] MEDS ORDERED: SODIUM CHLORIDE 0.9% 1000 ML 1,000 ML IV SCH (20:45)
--- NOTE | 2021-06-11 20:47 | XRay Report ---
Chest single view INDICATION: Dyspnea IMPRESSION: Moderate to large right-sided pneumothorax. Endotracheal tube terminates about 3 cm above the devin. The finding pneumothorax was discussed with the charge nurse in the ER Hailey gandhi RN by Dr. Marisol crain telephone at 7:40 PM Central time on 06/11/2021.. Signer Name: Jessee Damon MD Signed: 06/11/2021 8:43 PM Workstation Name: [id number]
--- NOTE | 2021-06-11 20:48 | XRay Report ---
Chest 2 views INDICATION: Dyspnea IMPRESSION: Moderate to large right-sided pneumothorax. Questionable small pneumomediastinum. Right-s ided pneumothorax measures approximately 30-40% in size. Patchy bilateral airspace disease. Endotrach eal tube terminates in the right mainstem bronchus on the first image and is just above the devin on the second image. The finding pneumothorax was discussed with the charge nurse in the ER Hailey gandhi RN by Dr. Marisol glasgow ia telephone at 7:40 PM Central time on 06/11/2021.. Signer Name: Jessee Damon MD Signed: 06/11/2021 8:44 PM Workstation Name: [id number]
--- NOTE | 2021-06-11 20:53 | Anesthesia Day of Surgery ---
Anesthesia Day of Surgery - Day of Surgery Patient Examined: Yes Patient H&P Reviewed: Yes Patient is NPO: Yes (Unknown)
--- NOTE | 2021-06-11 20:58 | Anesthesia Consultation ---
Anesthesia Consult and Med Hx Date of service: 06/11/21 - Airway Anesthetic Teeth Evaluation: Good ROM Head & Neck: Inadequate (Unable to extend neck) Mallampati Class: Class IV Intubation Access Assessment: Difficult (Currently has trach; see note) - Pre-Operative Health Status ASA Pre-Surgery Classification: ASA3, Emergency Proposed Anesthetic Plan: General - Cardiovascular System Hx Hypertension: Yes Hx Peripheral Vascular Disease: Yes (On coumadin) - Endocrine Hx Non-Insulin Dependent Diabetes: Yes - Additional Comments Anesthesia Medical History Comments: Emergent case-patient brought to OR from ER after airway secured to control bleeding and for washout.
--- NOTE | 2021-06-11 21:02 | Event Note ---
Date: 06/11/21 (Intubation) Requested to intubate patient because of Jeremiah's Angina Of note is that patient is on coumadin so did not attempt nasal FOB intubation See nurses' notes for medications given. They were given incrementally to preserve spontaneous ventilations at all times prior to securing the airway. Attempted glidescope intubation, then FOB with glidescope, then FOB through LMA. Then did retrograde wire and attempted to pass 6.0 OETT. Attempted surgical airway and then ED physician performed it. It was not in the trachea and then requested assistance from Dr. Patricia who ultimately secured the airway with OETT in the trachea. After airway was secured, midazolam 5 mg and rocuronium 50 mg given.
[2021-06-11] MEDS ORDERED: PHENYLEPHRINE/NS 1,000 MCG/10 ML SYRINGE (OR USE) IV ONE ×2 (21:20→21:21)
[2021-06-11] MEDS ORDERED: PHYTONADIONE 10 MG/1 ML (ADULT ONLY)*INJECTION SUB-Q STA (21:21)
[2021-06-11] MEDS ORDERED: PHENYLEPHRINE 10 MG/1 ML INJ SDV ONE (21:21)
[2021-06-11] MEDS ORDERED: VANCOMYCIN 2,000 MG in SODIUM CHLORIDE 0.9% 500 ML 500 ML IV SCH (21:30)
[2021-06-11] MEDS ORDERED: VANCOMYCIN PHARMACY TO DOSE IV SCH (22:00)
[2021-06-11] MEDS ORDERED: VANCOMYCIN 2,000 MG in SODIUM CHLORIDE 0.9% 500 ML 500 ML IV ONE (22:00)
[2021-06-11] MEDS ORDERED: MIDAZOLAM 2 MG/2 ML INJ ONE (22:11)
[2021-06-11] MEDS ORDERED: SODIUM CHLORIDE 0.9% 100 ML ONE (22:24)
--- NOTE | 2021-06-11 22:38 | XRay Report ---
CHEST 1 VIEW INDICATION / CLINICAL INFORMATION: CHEST TUBE PLACEMENT. COMPARISON: Chest x-ray 06/11/2021; 1857 hours FINDINGS: SUPPORT DEVICES: Interval placement of small caliber multihole thoracostomy tube overlying the right upper chest. Right-sided pneumothorax demonstrates minimal interval change in size. The tip of the en dotracheal tube lies below the devin on some images likely within the right main bronchus given the lack of gastric distention. HEART / MEDIASTINUM: No significant abnormality. LUNGS / PLEURA: Left lung demonstrates scattered airspace opacities overlying the left hemidiaphragm left midlung. ADDITIONAL FINDINGS: Moderate subcutaneous emphysema within the lower neck possibly from difficult in tubation. IMPRESSION: 1. Little change in size of right-sided pneumothorax. Interval placement of small-caliber thoracostom y tube tip overlying the upper right chest. 2. Tip of the endotracheal tube thought to engage the right main bronchus and retraction by 1 to 2 cm recommended. IMPORTANT FINDING Time of Communication (ACCOUNTING MANAGER CPA/CDT): 2132 hours Licensed Practitioner Receiving Report: Dr. Harshad Guzman via ICU staff. Persistent pneumothorax and endotracheal tube placement. Signer Name: Raza Alfonso II, MD Signed: 06/11/2021 10:34 PM Workstation Name: [id number]
[2021-06-11] MEDS ORDERED: SODIUM CHLORIDE 0.9% IRR 1,500 ML BOTTLE IR ONE (22:56)
--- NOTE | 2021-06-11 23:06 | Post Operative Note ---
Date of procedure: 06/11/21 Pre-op diagnosis: Ludwigg's Angina with airway compromise Post-op diagnosis: same Findings: Pt with swelling around the airwway and anesthesia unable to secure airway. Procedure: Surgical airway Anesthesia: MAC Surgeon: LYLA BERNSTEIN Meat Stocker: ALICE LUGO Estimated blood loss: 50-100ml Pathology: none Condition: critical Disposition: other (OR)
--- NOTE | 2021-06-11 23:11 | Post Operative Note ---
Pre-op diagnosis: Coagulopathy and bleeding from surgical airway Post-op diagnosis: same Findings: Coagulopathy with inr of 8 and nonsugical bleeding from the neck incision used for the surgical airway Procedure: open exploration of neck with quick clott and mass closure. Anesthesia: VERÓNICA Surgeon: LYLA BERNSTEIN Inclusion Intern: CARMINA BURNETTE Estimated blood loss: other (300) Pathology: none Condition: critical Disposition: ICU
--- NOTE | 2021-06-11 23:33 | XRay Report ---
CHEST 1 VIEW INDICATION / CLINICAL INFORMATION: reposition ett. COMPARISON: Chest x-ray 06/11/2021 FINDINGS: SUPPORT DEVICES: The small caliber thoracostomy tube has been retracted with approximately 2.2 cm pro jecting within the right pleural space. Endotracheal tube lies at the devin possibly engaging right main bronchus.. HEART / MEDIASTINUM: No significant abnormality. LUNGS / PLEURA: Size of the right-sided pneumothorax is without significant change. Slightly worsened atelectasis left lower lobe. Lungs otherwise stable. ADDITIONAL FINDINGS: Stable subcutaneous emphysema bilateral lower neck. IMPRESSION: 1. Interval retraction of right-sided chest tube. 2 cm remains within the right pleural space. Stable moderate right pneumothorax. 2. Endotracheal tube terminates at the devin or engaging right main bronchus. Retraction by 2 cm cou ld be considered. IMPORTANT FINDING Time of Communication (INFANT TEACHER/CDT): 2228 hours Licensed Practitioner Receiving Report: Terrie Marr RN Signer Name: Raza Alfonso II, MD Signed: 06/11/2021 11:29 PM Workstation Name: [email or web address]
[2021-06-11] MEDS ORDERED: PHENYLEPHRINE 100 MG in SODIUM CHLORIDE 0.9% 90 ML IV SCH (23:45)
[2021-06-11 23:52] LABS: Mean Corpuscular HGB Conc 31 % (30-34); Mean Corpuscular Volume 88 fl (79-97); Platelet Count 131 K/mm3 (140-440); Red Blood Count 4.01 M/mm3 (3.65-5.03)
[2021-06-11 23:55] LABS: Hematocrit 35.4 % (30.3-42.9); Hemoglobin 10.8 gm/dl (10.1-14.3); Red Cell Distribution Width 22.2 % (13.2-15.2)
[2021-06-12] MEDS: MIDAZOLAM/NS Drip 100mg/100ml 100 MG/100 ML BAG IV SCH (00:10)
[2021-06-12] MEDS ORDERED: SODIUM CHLORIDE 0.9% 500 ML 500 ML IV ONE ×4 (00:12→02:46)
[2021-06-12] MEDS ORDERED: PHYTONADIONE(ADULT ONLY) 10 MG in SODIUM CHLORIDE 0.9% 50 ML IV ONE ×4 (00:13→06:56)
[2021-06-12 00:14] LABS: INR 4.55 (0.87-1.13)
[2021-06-12 00:15] LABS: Partial Thromboplastin Time 54.8 Sec. (24.2-36.6)
[2021-06-12 00:27] LABS: Albumin 0.8 g/dL (3.9-5); Blood Urea Nitrogen 9 mg/dL (7-17); Hemolysis Index 27
[2021-06-12] MEDS: fentaNYL DRIP Premix 2,000 MCG/100 ML BAG IV SCH ×5 (00:33→23:12)
--- NOTE | 2021-06-12 00:42 | Event Note ---
Date: 06/12/21 Called by the critical care to see the patient because patient is bleeding from trach. Patient is seen and examined. Patient INR is 8.18 and PTT 72.9. Patient is getting 3 more unit of FFP and vitamin K 10 mg IV x1 dose. Repeat chest x-ray shows interval retraction of the right-sided chest tube. 2 cm remains within the right pleural space. Stable moderate right pneumothorax. Endotracheal tube terminates at the devin or encasing the right main bronchus. Retraction by 2 cm could be considered Subsequently Case was discussed with Dr. Harshad alvarado who recommended correct the coagulopathy and he will put a large chest tube and check the track in the morning. We recheck the PT/INR.
[2021-06-12 01:00] LABS: Alanine Aminotransferase < 5 units/L (7-56); BUN/Creatinine Ratio 30
[2021-06-12 01:05] LABS: Calcium 2.4 mg/dL (8.4-10.2)
--- NOTE | 2021-06-12 01:34 | Procedure Note ---
Date of procedure: 06/12/21 Pre-op diagnosis: hypotension Post-op diagnosis: same Procedure: Right femoral vein central catheter placement under ultrasound guidance. Emergency procedure as patient suffering from Jeremiah's Angina with unstable airway and elevated INR. Right groin prepped and draped after patient's panus was secured with tape. right femoral vein seen with US and using seldinger technique central line placed without any immediate complications. All ports withdrew and flushed. sutured in and dressed by staff. No indication for x-ray given groin placement so line ready for immediate use. Anesthesia: GETA Surgeon: RAYMON COURTNEY Estimated blood loss: none Pathology: none Condition: critical Disposition: ICU
[2021-06-12] MEDS ORDERED: NORepinephrine/NS 8 MG-250 ML 8 MG/250 ML INFUS..BTL IV ONE (01:51)
--- NOTE | 2021-06-12 01:52 | Consultation ---
History of Present Illness Consult date: 06/12/21 Requesting physician: TRAY CHRISTIE Reason for consult: other (Critical airway secondary to upper airway obstruction, possible jeremiah's angina) History of present illness: 76 y/o female seen in the ED yesterday afternoon around 1600 for what I think was jaw pain. Concern for airway compromise. ED ordered CT of neck showing significant upper airway compromise. Intubation from above attempted multiple times per ED note and the surgery was consulted for emergent cric. Patient then apparently had significant bleeding so was taken to the OR for bleeding control and suturing in of endotracheal tube ( she does not have a trach as I was told she did). She is currently in the ICU on vasopressors through peripheral lines and coagulopathic. She is awake and able to follow commands and states that she is in pain. Currently on versed and fentanyl. She has HTN, Diabetes and PVD. Remainder is unobtainable. Past History Past Medical History: diabetes, hypertension, PVD, other (obesity gout) Past Surgical History: Other (unable to obtain) Social history: other (unable to obtain) Family history: other (unable to obtain) Medications and Allergies Allergies Allergy/AdvReac Type Severity Reaction Status Date / Time No Known Allergies Allergy Verified 06/11/21 13:50 Home Medications Medication Instructions Recorded Confirmed Last Taken Type Trazodone HCl 150 mg ONCE 06/30/13 06/30/13 06/28/13 History Valsartan/Hydrochlorothiazide 5 mg ONCE 06/30/13 06/30/13 06/28/13 History [Valsartan-Hctz 80-12.5 mg] Warfarin [Coumadin] 5 mg PO ONCE 06/30/13 06/30/13 06/26/13 History allopurinoL [Zyloprim] 300 mg ONCE 06/30/13 06/30/13 06/27/13 History glipiZIDE [glipiZIDE ER] 5 mg ONCE 06/30/13 06/30/13 06/28/13 History methOCARBAMOL [Robaxin] 500 mg PO BID #30 tab 09/27/13 Unknown Rx Amoxicillin/K Clav Tab [Augmentin 1 tab PO Q12HR #14 tab 05/11/16 Unknown Rx 875 mg] traMADoL [Ultram 50 MG tab] 50 mg PO Q6HR PRN #20 tablet 11/20/16 Unknown Rx Ibuprofen [Motrin] 600 mg PO Q8H PRN #30 tablet 08/27/17 Unknown Rx Naproxen [Naprosyn TAB] 500 mg PO BID #30 tablet 09/22/17 Unknown Rx cephALEXin [Keflex] 500 mg PO BID #20 capsule 09/22/17 Unknown Rx Ondansetron [Zofran Odt] 4 mg PO Q8HR PRN #14 tab.rapdis 03/28/18 Unknown Rx guaiFENesin/CODEINE [Robitussin AC] 10 ml PO TID PRN #100 ml 03/28/18 Unknown Rx levoFLOXacin [Levaquin TAB] 500 mg PO QDAY #7 tablet 03/28/18 Unknown Rx HYDROcodone/APAP 5-325 [[place] 1 each PO Q6HR PRN #8 tablet 08/12/18 Unknown Rx 5-325 mg TAB] Sulfamethoxazole/Trimethoprim 1 each PO BID 10 Days #20 tablet 08/12/18 Unknown Rx [Bactrim DS TAB] Cetirizine HCl/Pseudoephedrine 1 each PO DAILY #30 tab.er.12h 07/03/20 Unknown Rx [Zyrtec-D Tablet] Fluticasone [Flonase] 1 spray NS QDAY #1 bottle 07/03/20 Unknown Rx Active Meds: Active Medications Fentanyl (Fentanyl 100 Mcg/2 Ml Inj) 50 mcg IV Q10MIN PRN PRN Reason: ANALGESIA Hydromorphone HCl (Hydromorphone 1 Mg/1 Ml Inj) 0.5 mg IV Q3H PRN PRN Reason: Pain , Severe (7-10) Sodium Chloride (Nacl 0.9% 1000 Ml) 1,000 mls @ 100 mls/hr IV DIRECT JOLENE Cefepime HCl (Cefepime/Ns 2 Gm/100 Ml) 2 gm in 100 mls @ 200 mls/hr IV Q8H JOLENE; Protocol Midazolam DRIP Premix (Midazolam/Ns 100 Mg/100 Ml) 100 mg in 100 mls @ 1 mls/hr IV TITR JOLENE; Protocol Last Admin: 06/12/21 00:10 Dose: 1 mg/hr, 1 mls/hr Fentanyl Citrate (Fentanyl Drip Premix) 2,000 mcg in 100 mls @ 5.466 mls/hr IV TITR JOLENE; Protocol Last Titration: 06/12/21 01:33 Dose: 2 mcg/kg/hr, 10.932 mls/hr Phenylephrine HCl 100 mg/ (Sodium Chloride) 100 mls @ 3 mls/hr IV TITR JOLENE; Protocol NORepinephrine/NS 8 MG-250 ML (Norepinephrine/Ns 8 Mg-250 Ml (Double Conc)) 8 mg in 250 mls @ 3.75 mls/hr IV TITRATE JOLENE; Protocol Methylprednisolone Sodium Succinate (Methylprednisolone Sod Succinate 125 Mg/2 Ml Inj) 125 mg IV Q8HR JOLENE Metoclopramide HCl (Metoclopramide 10 Mg/2 Ml Inj) 10 mg IV Q6H PRN PRN Reason: Nausea And Vomiting Ondansetron HCl (Ondansetron 4 Mg/2 Ml Inj) 4 mg IV Q3H PRN PRN Reason: Nausea And Vomiting Sodium Chloride (Sodium Chloride 0.9% 10 Ml Flush Syringe) 10 ml IV BID JOLENE Sodium Chloride (Sodium Chloride 0.9% 10 Ml Flush Syringe) 10 ml IV PRN PRN PRN Reason: LINE FLUSH Review of Systems ROS unobtainable: due to endotracheal tube Physical Examination Vital signs: Vital Signs Temp Pulse Resp BP Pulse Ox 98.3 F 72 16 157/88 98 06/11/21 13:47 06/11/21 13:47 06/11/21 13:47 06/11/21 13:47 06/11/21 13:47 General appearance: alert, appears uncomfortable Eyes: non-icteric ENT: other (patient with blood oozing from mouth but not able to open it v oluntarily) Neck: other (covered in dressing, ET tube is anterior but I am not moving secondary to instability) Ascultation: Bilateral: clear Percussion: Bilateral: not dull Cardiovascular: regular rate and rhythm Gastrointestinal: normoactive bowel sounds, soft Extremities: no edema normal mental status Results - Laboratory Findings CBC and BMP: 06/11/21 23:21 06/11/21 23:21 ABG ABG pH 7.364 (7.320-7.450) 06/11/21 23:42 POC ABG pCO2 35.4 mmHg (32.0-48.0) 06/11/21 23:42 POC ABG pO2 325.9 mmHg (83-108) H 06/11/21 23:42 POC ABG HCO3 19.7 06/11/21 23:42 ABG O2 Saturation 99.9 (0-100) 06/11/21 23:42 PT/INR, D-dimer PT 46.3 Sec. (12.2-14.9) H 06/11/21 23:22 INR 4.55 (0.87-1.13) H 06/11/21 23:22 Abnormal lab findings: Abnormal Labs 06/11/21 06/11/21 06/11/21 15:23 15:23 19:20 WBC 12.0 H Hgb MCV 72 L MCH 21 L RDW 17.5 H Plt Count Lymph % (Auto) 12.9 L Gove % (Auto) 8.6 H Gove # (Auto) 1.0 H Seg Neutrophils % 77.4 H Seg Neutrophils # 9.3 H PT INR APTT POC ABG pO2 ABG Hemoglobin ABG Oxyhemoglobin Sodium Chloride Carbon Dioxide Creatinine Glucose 144 H Calcium ALT Alkaline Phosphatase Total Protein Albumin Crossmatch See Detail 06/11/21 06/11/21 06/11/21 19:29 19:29 23:21 WBC 15.8 H Hgb 9.4 L MCV 72 L MCH 22 L RDW 17.4 H Plt Count Lymph % (Auto) 9.2 L Gove % (Auto) Gove # (Auto) Seg Neutrophils % 89.0 H Seg Neutrophils # 14.0 H PT 72.9 H INR 8.18 H* APTT 71.7 H* POC ABG pO2 ABG Hemoglobin ABG Oxyhemoglobin Sodium 149 H D Chloride 124.3 H Carbon Dioxide 8 L* D Creatinine 0.3 L Glucose 628 H* Calcium 2.4 L* D ALT < 5 L Alkaline Phosphatase 19 L Total Protein 1.6 L D Albumin 0.8 L Crossmatch 06/11/21 06/11/21 06/11/21 23:21 23:22 23:42 WBC Hgb MCV MCH 27 L RDW 22.2 H Plt Count 131 L Lymph % (Auto) Gove % (Auto) Gove # (Auto) Seg Neutrophils % Seg Neutrophils # PT 46.3 H INR 4.55 H APTT 54.8 H POC ABG pO2 325.9 H ABG Hemoglobin 8.0 L ABG Oxyhemoglobin 99.0 H Sodium Chloride Carbon Dioxide Creatinine Glucose Calcium ALT Alkaline Phosphatase Total Protein Albumin Crossmatch - Diagnostic Findings Chest x-ray: image reviewed (most recent film shows a right sided PTX that does appear stable compared to when chest tube was placed by surgery earlier) Assessment and Plan 76 y/o female with upper airway obstruction and possibly Jeremiah's angina, s/p emergent cric with bleeding, ET tube now sutured in with right sided PTX and chest tube that is partially out. 1. Placed right femoral central line. pressors can run through this. 2. Repeat chemistry stat given bicarb of 8 and blood sugar of greater than 600. Ordering FSBS now. Earlier bicarb was 25. If accurate will need bicarb drip and vasopressin but not sure as pH on blood gas was normal done around the same time. 3. Coagulopathy is improving. INR down to 4.55 and PTT and pT improving. Will continue to give FFP. Ordered more vitamin K. H/H is stable but patient is oozing from neck and mouth. 4. Vasopressor for blood pressure. Need to keep map 65 and greater 5. Lujan is needed for accurate I/O 6. Surgery called by [facility] about current CT situation. They state they will reassess in the am. I have reviewed the images myself. If I can position the patient safely without compromising the airway after adequate sedation, may consider placing chest tube now as INR is better and FFP is hanging. Patient is morbidly obese so shits could move the ET tube so if not safe, will wait until surgery comes in the morning. 7. Would not attempt to pass OG or NG tube given current situation in neck 8. Will discuss with surgery tomorrow but I feel this patient should be transferred to a tertiary care facility with ENT as we do not have that service here. CCT 31 minutes.
[2021-06-12 02:03] LABS: Mean Corpuscular HGB Conc 30 % (30-34); Mean Corpuscular Volume 74 fl (79-97); Platelet Count 246 K/mm3 (140-440); Red Blood Count 3.04 M/mm3 (3.65-5.03); Red Cell Distribution Width 18.9 % (13.2-15.2)
[2021-06-12] MEDS: NORepinephrine/NS 8 MG-250 ML 8 MG/250 ML INFUS..BTL IV SCH (02:12)
[2021-06-12 02:19] LABS: Hematocrit 22.4 % (30.3-42.9); Hemoglobin 6.7 gm/dl (10.1-14.3)
[2021-06-12 02:22] LABS: Alanine Aminotransferase 12 units/L (7-56); Albumin 3.1 g/dL (3.9-5); BUN/Creatinine Ratio 18; Blood Urea Nitrogen 16 mg/dL (7-17); Calcium 7.1 mg/dL (8.4-10.2); Hemolysis Index 2
[2021-06-12 02:33] LABS: INR 2.1 (0.87-1.13)
[2021-06-12 04:36] LABS: Band Neutrophils # (Manual) 2.6 K/mm3; Basophils % (Manual) 0 % (0.0-1.8); Eosinophils % (Manual) 0 % (0.0-4.3); Myelocytes # (Manual) 0.2 K/mm3; Total Cells Counted 100
[2021-06-12 04:37] LABS: Anisocytosis 2+; Burr Cells Rare; Hypochromasia 3+; Stomatocytes Few
[2021-06-12 04:38] LABS: Large Platelets Few; Ovalocytes Few; Platelet Estimate Consistent w Auto; Target Cells Rare
[2021-06-12] MEDS: CEFEPIME/NS 2 GM/100 ML 2 GM/100 ML BAG IV SCH ×4 (08:00→21:39)
[2021-06-12] MEDS: methylPREDNISolone Sod Succinate 125 MG/2 ML INJ IV SCH ×3 (08:00→21:28)
[2021-06-12] MEDS: FAMOTIDINE 20 MG/2 ML INJ IV SCH ×2 (10:25→21:27)
--- NOTE | 2021-06-12 10:58 | Consultation ---
History of Present Illness - Reason for Consult Consult date: 06/12/21 Jeremiah's angina Requesting physician: KIT PATEL - History of Present Illness The patient is a 76-year-old female with diabetes, hypertension, gout was admitted to the hospital on 06/11/2021 with swelling of the submandibular region, tongue and difficulty breathing, labs also revealed severe coagulopathy due to Coumadin. CT scan of the neck showed findings concerning for Jeremiah's angina with significant airway narrowing. Patient underwent urgent cricothyroidotomy and then surgery performed tracheostomy urgently. Patient was also noted to have a right-sided pneumothorax for which she underwent a chest tube placement. Infectious diseases was consulted for antibiotic management. Patient with no fever. On pressors. Review of Systems: Cannot be obtained since patient is on the vent. Past History Past Medical History: diabetes, hypertension, PVD, other (obesity gout) Past Surgical History: Other (unable to obtain) Social history: other (unable to obtain) Family history: other (unable to obtain) Medications and Allergies Allergies Allergy/AdvReac Type Severity Reaction Status Date / Time No Known Allergies Allergy Verified 06/11/21 13:50 Home Medications Medication Instructions Recorded Confirmed Last Taken Type Trazodone HCl 150 mg ONCE 06/30/13 06/30/13 06/28/13 History Valsartan/Hydrochlorothiazide 5 mg ONCE 06/30/13 06/30/13 06/28/13 History [Valsartan-Hctz 80-12.5 mg] Warfarin [Coumadin] 5 mg PO ONCE 06/30/13 06/30/13 06/26/13 History allopurinoL [Zyloprim] 300 mg ONCE 06/30/13 06/30/13 06/27/13 History glipiZIDE [glipiZIDE ER] 5 mg ONCE 06/30/13 06/30/13 06/28/13 History methOCARBAMOL [Robaxin] 500 mg PO BID #30 tab 09/27/13 Unknown Rx Amoxicillin/K Clav Tab [Augmentin 1 tab PO Q12HR #14 tab 05/11/16 Unknown Rx 875 mg] traMADoL [Ultram 50 MG tab] 50 mg PO Q6HR PRN #20 tablet 11/20/16 Unknown Rx Ibuprofen [Motrin] 600 mg PO Q8H PRN #30 tablet 08/27/17 Unknown Rx Naproxen [Naprosyn TAB] 500 mg PO BID #30 tablet 09/22/17 Unknown Rx cephALEXin [Keflex] 500 mg PO BID #20 capsule 09/22/17 Unknown Rx Ondansetron [Zofran Odt] 4 mg PO Q8HR PRN #14 tab.rapdis 03/28/18 Unknown Rx guaiFENesin/CODEINE [Robitussin AC] 10 ml PO TID PRN #100 ml 03/28/18 Unknown Rx levoFLOXacin [Levaquin TAB] 500 mg PO QDAY #7 tablet 03/28/18 Unknown Rx HYDROcodone/APAP 5-325 [[place] 1 each PO Q6HR PRN #8 tablet 08/12/18 Unknown Rx 5-325 mg TAB] Sulfamethoxazole/Trimethoprim 1 each PO BID 10 Days #20 tablet 08/12/18 Unknown Rx [Bactrim DS TAB] Cetirizine HCl/Pseudoephedrine 1 each PO DAILY #30 tab.er.12h 07/03/20 Unknown Rx [Zyrtec-D Tablet] Fluticasone [Flonase] 1 spray NS QDAY #1 bottle 07/03/20 Unknown Rx Active Meds: Active Medications Famotidine (Famotidine 20 Mg/2 Ml Inj) 20 mg IV BID JOLENE Last Admin: 06/12/21 10:25 Dose: 20 mg Fentanyl (Fentanyl 100 Mcg/2 Ml Inj) 50 mcg IV Q10MIN PRN PRN Reason: ANALGESIA Hydromorphone HCl (Hydromorphone 1 Mg/1 Ml Inj) 0.5 mg IV Q3H PRN PRN Reason: Pain , Severe (7-10) Sodium Chloride (Nacl 0.9% 1000 Ml) 1,000 mls @ 100 mls/hr IV DIRECT JOLENE Cefepime HCl (Cefepime/Ns 2 Gm/100 Ml) 2 gm in 100 mls @ 200 mls/hr IV Q8H JOLENE; Protocol Last Admin: 06/12/21 08:00 Dose: 200 mls/hr Midazolam DRIP Premix (Midazolam/Ns 100 Mg/100 Ml) 100 mg in 100 mls @ 1 mls/hr IV TITR JOLENE; Protocol Last Titration: 06/12/21 02:07 Dose: 2 mg/hr, 2 mls/hr Fentanyl Citrate (Fentanyl Drip Premix) 2,000 mcg in 100 mls @ 5.466 mls/hr IV TITR JOLENE; Protocol Last Admin: 06/12/21 05:03 Dose: 3 mcg/kg/hr, 16.397 mls/hr Phenylephrine HCl 100 mg/ (Sodium Chloride) 100 mls @ 3 mls/hr IV TITR JOLENE; Protocol Last Titration: 06/12/21 10:55 Dose: 30 mcg/min, 1.8 mls/hr NORepinephrine/NS 8 MG-250 ML (Norepinephrine/Ns 8 Mg-250 Ml (Double Conc)) 8 mg in 250 mls @ 3.75 mls/hr IV TITRATE JOLENE; Protocol Last Titration: 06/12/21 06:50 Dose: 3 mcg/min, 5.625 mls/hr Vancomycin HCl 2,000 mg/ (Sodium Chloride) 540 mls @ 250 mls/hr IV Q12H JOLENE Propofol (Diprivan 10 Mg/Ml) 1,000 mg in 100 mls @ 3.279 mls/hr IV TITR JOLENE; Protocol Last Admin: 06/12/21 08:37 Dose: 30 mcg/kg/min, 19.677 mls/hr Metronidazole (Flagyl 500 Mg/100 Ml) 500 mg in 100 mls @ 100 mls/hr IV Q8H JOLENE; Protocol Insulin Human Lispro (Insulin Lispro 100 Unit/Ml) 0 unit SUB-Q Q6HR JOLENE; Protocol Methylprednisolone Sodium Succinate (Methylprednisolone Sod Succinate 125 Mg/2 Ml Inj) 125 mg IV Q8HR JOLENE Last Admin: 06/12/21 08:00 Dose: 125 mg Metoclopramide HCl (Metoclopramide 10 Mg/2 Ml Inj) 10 mg IV Q6H PRN PRN Reason: Nausea And Vomiting Ondansetron HCl (Ondansetron 4 Mg/2 Ml Inj) 4 mg IV Q3H PRN PRN Reason: Nausea And Vomiting Sodium Chloride (Sodium Chloride 0.9% 10 Ml Flush Syringe) 10 ml IV BID JOLENE Last Admin: 06/12/21 10:26 Dose: 10 ml Sodium Chloride (Sodium Chloride 0.9% 10 Ml Flush Syringe) 10 ml IV PRN PRN PRN Reason: LINE FLUSH Physical Examination - Physical Exam Narrative exam: Physical Exam: Constitutional: sedated, intubated, on the vent Head, Ears, Nose: Normocephalic, atraumatic. External ears, nose normal Eyes: Conjunctivae/corneas clear. No icterus. No ptosis. Neck: Surgical airway with bleeding around it Cardiovascular: S1, S2 + Respiratory: AE fair bilaterally, right-sided chest tube GI: Soft, bowel sounds + Musculoskeletal: No pedal edema, no cyanosis. Skin: No rash or abscess Hem/Lymphatic: No palpable cervical or supraclavicular nodes. No lymphangitis Psych: no agitation Neurological: sedated, intubated, on the vent, exam limited - Constitutional Vitals: Vital Signs Temp Pulse Resp BP Pulse Ox 98.5 F 73 17 111/66 100 06/12/21 08:00 06/12/21 10:16 06/12/21 10:16 06/12/21 10:16 06/12/21 10:16 Temperature -Last 24 Hours Temperature 98.5 F Temperature 98 F Temperature 96.8 F Temperature 96.8 F Temperature 96.8 F Temperature 96 F Temperature 96 F Temperature 98 F Temperature 98.9 F Temperature 98.3 F Results - Labs CBC & Chem 7: 06/12/21 01:45 06/12/21 01:45 Labs: Abnormal lab results 06/11/21 06/11/21 06/11/21 Range/Units 15:23 15:23 19:20 WBC 12.0 H (4.5-11.0) K/mm3 RBC (3.65-5.03) M/mm3 Hgb (10.1-14.3) gm/dl Hct (30.3-42.9) % MCV 72 L (79-97) fl MCH 21 L (28-32) pg RDW 17.5 H (13.2-15.2) % Plt Count (140-440) K/mm3 Lymph % (Auto) 12.9 L (13.4-35.0) % Riley % (Auto) 8.6 H (0.0-7.3) % Riley # (Auto) 1.0 H (0.0-0.8) K/mm3 Seg Neutrophils % 77.4 H (40.0-70.0) % Seg Neuts % (Manual) (40.0-70.0) % Lymphocytes % (Manual) (13.4-35.0) % Monocytes % (Manual) (0.0-7.3) % Seg Neutrophils # 9.3 H (1.8-7.7) K/mm3 Seg Neutrophils # Man (1.8-7.7) K/mm3 Lymphocytes # (Manual) (1.2-5.4) K/mm3 Monocytes # (Manual) (0.0-0.8) K/mm3 PT (12.2-14.9) Sec. INR (0.87-1.13) APTT (24.2-36.6) Sec. POC ABG pO2 (83-108) mmHg ABG Hemoglobin (12.0-17.5) ABG Oxyhemoglobin (94-98) Sodium (137-145) mmol/L Potassium (3.6-5.0) mmol/L Chloride (98-107) mmol/L Carbon Dioxide (22-30) mmol/L Creatinine (0.6-1.2) mg/dL Glucose 144 H (65-100) mg/dL POC Glucose (70-105) mg/dL Calcium (8.4-10.2) mg/dL ALT (7-56) units/L Alkaline Phosphatase (35-129) units/L Total Protein (6.3-8.2) g/dL Albumin (3.9-5) g/dL Crossmatch See Detail 06/11/21 06/11/21 06/11/21 Range/Units 19:29 19:29 23:21 WBC 15.8 H (4.5-11.0) K/mm3 RBC (3.65-5.03) M/mm3 Hgb 9.4 L (10.1-14.3) gm/dl Hct (30.3-42.9) % MCV 72 L (79-97) fl MCH 22 L (28-32) pg RDW 17.4 H (13.2-15.2) % Plt Count (140-440) K/mm3 Lymph % (Auto) 9.2 L (13.4-35.0) % Riley % (Auto) (0.0-7.3) % Riley # (Auto) (0.0-0.8) K/mm3 Seg Neutrophils % 89.0 H (40.0-70.0) % Seg Neuts % (Manual) (40.0-70.0) % Lymphocytes % (Manual) (13.4-35.0) % Monocytes % (Manual) (0.0-7.3) % Seg Neutrophils # 14.0 H (1.8-7.7) K/mm3 Seg Neutrophils # Man (1.8-7.7) K/mm3 Lymphocytes # (Manual) (1.2-5.4) K/mm3 Monocytes # (Manual) (0.0-0.8) K/mm3 PT 72.9 H (12.2-14.9) Sec. INR 8.18 H* (0.87-1.13) APTT 71.7 H* (24.2-36.6) Sec. POC ABG pO2 (83-108) mmHg ABG Hemoglobin (12.0-17.5) ABG Oxyhemoglobin (94-98) Sodium 149 H D (137-145) mmol/L Potassium (3.6-5.0) mmol/L Chloride 124.3 H (98-107) mmol/L Carbon Dioxide 8 L* D (22-30) mmol/L Creatinine 0.3 L (0.6-1.2) mg/dL Glucose 628 H* (65-100) mg/dL POC Glucose (70-105) mg/dL Calcium 2.4 L* D (8.4-10.2) mg/dL ALT < 5 L (7-56) units/L Alkaline Phosphatase 19 L (35-129) units/L Total Protein 1.6 L D (6.3-8.2) g/dL Albumin 0.8 L (3.9-5) g/dL Crossmatch 06/11/21 06/11/21 06/11/21 Range/Units 23:21 23:22 23:42 WBC (4.5-11.0) K/mm3 RBC (3.65-5.03) M/mm3 Hgb (10.1-14.3) gm/dl Hct (30.3-42.9) % MCV (79-97) fl MCH 27 L (28-32) pg RDW 22.2 H (13.2-15.2) % Plt Count 131 L (140-440) K/mm3 Lymph % (Auto) (13.4-35.0) % Riley % (Auto) (0.0-7.3) % Riley # (Auto) (0.0-0.8) K/mm3 Seg Neutrophils % (40.0-70.0) % Seg Neuts % (Manual) (40.0-70.0) % Lymphocytes % (Manual) (13.4-35.0) % Monocytes % (Manual) (0.0-7.3) % Seg Neutrophils # (1.8-7.7) K/mm3 Seg Neutrophils # Man (1.8-7.7) K/mm3 Lymphocytes # (Manual) (1.2-5.4) K/mm3 Monocytes # (Manual) (0.0-0.8) K/mm3 PT 46.3 H (12.2-14.9) Sec. INR 4.55 H (0.87-1.13) APTT 54.8 H (24.2-36.6) Sec. POC ABG pO2 325.9 H (83-108) mmHg ABG Hemoglobin 8.0 L (12.0-17.5) ABG Oxyhemoglobin 99.0 H (94-98) Sodium (137-145) mmol/L Potassium (3.6-5.0) mmol/L Chloride (98-107) mmol/L Carbon Dioxide (22-30) mmol/L Creatinine (0.6-1.2) mg/dL Glucose (65-100) mg/dL POC Glucose (70-105) mg/dL Calcium (8.4-10.2) mg/dL ALT (7-56) units/L Alkaline Phosphatase (35-129) units/L Total Protein (6.3-8.2) g/dL Albumin (3.9-5) g/dL Crossmatch 06/12/21 06/12/21 06/12/21 Range/Units 01:45 01:45 01:45 WBC 21.6 H (4.5-11.0) K/mm3 RBC 3.04 L (3.65-5.03) M/mm3 Hgb 6.7 L D (10.1-14.3) gm/dl Hct 22.4 L D (30.3-42.9) % MCV 74 L (79-97) fl MCH 22 L (28-32) pg RDW 18.9 H (13.2-15.2) % Plt Count (140-440) K/mm3 Lymph % (Auto) (13.4-35.0) % Riley % (Auto) (0.0-7.3) % Riley # (Auto) (0.0-0.8) K/mm3 Seg Neutrophils % (40.0-70.0) % Seg Neuts % (Manual) 76.0 H (40.0-70.0) % Lymphocytes % (Manual) 2.0 L (13.4-35.0) % Monocytes % (Manual) 8.0 H (0.0-7.3) % Seg Neutrophils # (1.8-7.7) K/mm3 Seg Neutrophils # Man 16.4 H (1.8-7.7) K/mm3 Lymphocytes # (Manual) 0.4 L (1.2-5.4) K/mm3 Monocytes # (Manual) 1.7 H (0.0-0.8) K/mm3 PT 25.4 H (12.2-14.9) Sec. INR 2.10 H (0.87-1.13) APTT (24.2-36.6) Sec. POC ABG pO2 (83-108) mmHg ABG Hemoglobin (12.0-17.5) ABG Oxyhemoglobin (94-98) Sodium (137-145) mmol/L Potassium 5.6 H D (3.6-5.0) mmol/L Chloride (98-107) mmol/L Carbon Dioxide 20 L D (22-30) mmol/L Creatinine (0.6-1.2) mg/dL Glucose 368 H (65-100) mg/dL POC Glucose (70-105) mg/dL Calcium 7.1 L D (8.4-10.2) mg/dL ALT (7-56) units/L Alkaline Phosphatase (35-129) units/L Total Protein 5.3 L D (6.3-8.2) g/dL Albumin 3.1 L (3.9-5) g/dL Crossmatch 06/12/21 06/12/21 Range/Units 02:05 04:41 WBC (4.5-11.0) K/mm3 RBC (3.65-5.03) M/mm3 Hgb (10.1-14.3) gm/dl Hct (30.3-42.9) % MCV (79-97) fl MCH (28-32) pg RDW (13.2-15.2) % Plt Count (140-440) K/mm3 Lymph % (Auto) (13.4-35.0) % Riley % (Auto) (0.0-7.3) % Riley # (Auto) (0.0-0.8) K/mm3 Seg Neutrophils % (40.0-70.0) % Seg Neuts % (Manual) (40.0-70.0) % Lymphocytes % (Manual) (13.4-35.0) % Monocytes % (Manual) (0.0-7.3) % Seg Neutrophils # (1.8-7.7) K/mm3 Seg Neutrophils # Man (1.8-7.7) K/mm3 Lymphocytes # (Manual) (1.2-5.4) K/mm3 Monocytes # (Manual) (0.0-0.8) K/mm3 PT (12.2-14.9) Sec. INR (0.87-1.13) APTT (24.2-36.6) Sec. POC ABG pO2 224.6 H (83-108) mmHg ABG Hemoglobin 7.3 L (12.0-17.5) ABG Oxyhemoglobin 98.7 H (94-98) Sodium (137-145) mmol/L Potassium (3.6-5.0) mmol/L Chloride (98-107) mmol/L Carbon Dioxide (22-30) mmol/L Creatinine (0.6-1.2) mg/dL Glucose (65-100) mg/dL POC Glucose 308 H (70-105) mg/dL Calcium (8.4-10.2) mg/dL ALT (7-56) units/L Alkaline Phosphatase (35-129) units/L Total Protein (6.3-8.2) g/dL Albumin (3.9-5) g/dL Crossmatch - Imaging and Cardiology CT Scan - head: report reviewed, image reviewed (Jeremiah's angina with airway narrowing) Assessment and Plan Cultures: None obtained A/P: 76-year-old female with diabetes, hypertension, gout was admitted to the hospital on 06/11/2021 with swelling of the submandibular region, tongue and difficulty breathing, labs also revealed severe coagulopathy due to Coumadin. CT scan of the neck showed findings concerning for Jeremiah's angina with significant airway narrowing: #Septic shock: Secondary to Jeremiah's angina secondary to dental caries, also p robably component of hemorrhagic shock given blood loss anemia #Acute respiratory failure: Status post surgical airway placement due to airway compromise. #Right-sided pneumothorax: s/p chest tube. #Diabetes mellitus, uncontrolled #Coagulopathy: Secondary to Coumadin. #Acute blood loss anemia Recs: -Blood cultures ordered -empiric IV cefepime, Flagyl and vancomycin -agree with need for ENT maryellen Barros MD, FACP, [facility] ([facility] O: [phone] F: [phone]
[2021-06-12] MEDS ORDERED: metroNIDAZOLE/NS 500 MG/100 ML 500 MG/100 ML BAG IV SCH ×2 (11:00→23:00)
[2021-06-12 11:44] LABS: Hematocrit 27.7 % (30.3-42.9); Hemoglobin 8.5 gm/dl (10.1-14.3); Mean Corpuscular HGB Conc 31 % (30-34); Mean Corpuscular Volume 79 fl (79-97); Platelet Count 209 K/mm3 (140-440); Red Blood Count 3.52 M/mm3 (3.65-5.03)
[2021-06-12 11:46] LABS: Albumin 3.6 g/dL (3.9-5); Calcium 7.5 mg/dL (8.4-10.2)
[2021-06-12 11:48] LABS: Red Cell Distribution Width 20.9 % (13.2-15.2)
[2021-06-12 11:59] LABS: INR 1.23 (0.87-1.13)
--- NOTE | 2021-06-12 12:49 | Post Anesthesia Evaluation ---
- Post Anesthesia Evaluation Patient Participated: No (spoke to RN) Airway Patent: Yes Stable Respiratory Function: Yes Nausea/Vomiting: No Temp > 96.8F: Yes Pain Manageable: Yes Adequeate Hydration: Yes Anesthesia Complications: No Other Comments: Per RN patient nods appropriately and denies pain. Currently on Phenylephrine and Norepinephrine infusion. Trach site oozing but respiratory status stable.
[2021-06-12] MEDS: VANCOMYCIN 2,000 MG in SODIUM CHLORIDE 0.9% 500 ML 500 ML IV SCH (13:00)
--- NOTE | 2021-06-12 17:18 | XRay Report ---
XR chest 1V ap INDICATION / CLINICAL INFORMATION: Chest tube placement. COMPARISON: Radiograph from yesterday. FINDINGS: SUPPORT DEVICES: Tracheostomy tube is seen terminating at the devin. Right chest tube placement. HEART / MEDIASTINUM: Unchanged. LUNGS / PLEURA: Persistent right pneumothorax is not simply changed in size. Lungs are not significan tly changed. ADDITIONAL FINDINGS: No significant additional findings. IMPRESSION: 1. Persistent right pneumothorax after chest tube placement which is not significantly changed size. 2. Tracheostomy tube terminates the devin. Please retract 5 cm. I attempted to call doctor at 4:10 and was unable to get them. Signer Name: Jaime Hall MD Signed: 06/12/2021 5:13 PM Workstation Name: [id number]
[2021-06-12 18:12] LABS: INR 1.16 (0.87-1.13)
[2021-06-12 18:23] LABS: Bilirubin,Urine NEG (Negative); Blood,Urine NEG (Negative); Color,Urine Yellow (Yellow); Hemoglobin 7.5 gm/dl (10.1-14.3); Urobilinogen,Urine < 2.0 mg/dL (<2.0)
[2021-06-12 18:30] LABS: RBC,Urine < 1.0 /HPF (0.0-6.0); WBC,Urine < 1.0 /HPF (0.0-6.0)
--- NOTE | 2021-06-12 18:38 | Progress Note ---
<JORGEKIT H. - Last Filed: 06/12/21 18:34> Assessment and Plan Assessment and plan: This is a 76-year-old female with HTN, Coumadin use, dental caries, PVD s/p stenting to right leg, DM, arthritis, depression, gout and ? Pulmonary hypertension admitted with Jeremiah's angina s/p emergent cric with bleeding, right sided pneumothorax, supratherapeutic INR, hypernatremia, hyperchloremia, severe metabolic acidosis, hyperglycemia and hypocalcemia Neuro: Sedated, h/o depression, arthritis -Sedated with versed, propofol, fentanyl gtt -RASS goal -3 to -4 -Bilateral respirations in place for safety -Avoid delirium -Reorientation as needed -Maintain sleep-wake cycle Cardiac: Hypotension, h/o htn, PVD s/p stenting Right leg -Vasopressor support with Levophed and Fabian-Synephrine -Titrate as tolerated -MAP goal greater than 65 -Blood pressure monitoring per protocol Respiratory: Acute hypoxic respiratory failure, right pneumothorax -CCM consulted, appreciate recommendations -S/p emergent cricothyroid with surgery with 8.00 ETT -A.m. vent settings: Assist-control rate 16, tidal volume 400, PEEP 6, FiO2 60% -See RT notes for titration -Decrease in FiO2 repeat ABG -A.m. ABG and CXR noted -Right chest tube replaced by surgery -CT to wall suction -VAP bundle -SPO2 monitoring GI: Protein calorie malnutrition -24 hours no recording -PPI -Hold BR in setting of no enteral access : Hyperkalemia, metabolic acidosis -Nephrology consulted, appreciate recommendations -Strict intake and output -Renally dose medications -Avoid nephrotoxic medications -Daily weights ID: 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 dental caries -CT neck with contrast showed a significant right floor of mild swelling with extension into the submandibular and submental spaces, significant thickening and inflammation involving the right pharyngeal wall, with the parapharyngeal and retropharyngeal spaces at the level of the thyroid cartilage, epiglottis significantly swollen and so are the aryepiglottic folds resulting in significant airway narrowing at this level, no lymphadenopathy, symmetric submandibular and parathyroid glands, S few scattered caries but no periapical lucencies, nonspecific calcification along the right lateral oropharynx, no definite stone seen within the territory of the submandibular gland ducts, no suspicious rashes lesion -Infectious disease and general surgery consulted, appreciate recommendations -s/p cricothyroid ectomy -Will follow surgery to direction and treatment of injury -For surgery may have mucosal injury -Solu-Medrol 125 every 8 -Antibiotic therapy with cefepime, Flagyl, vancomycin -COVID-19 PCR negative -f/u blood culture -Monitor WBC and temperature curve -s/p 5L normal saline bolus in ED Heme: Coagulopathy, supratherapeutic INR, acute blood loss anemi, possible component of hemorrhagic shock -Patient is on Coumadin at home -Continue with INR of 8.18 now down to 2.1 -S/p 5 FFP, 4 PRBC, vitamin K x3 -Trend CBC -Presented with H/H of 10.3/34.6 and decreased to 6.7/22.4 -Serial H/H -Repeat PT/INR pending -Transfuse hemoglobin less than 7 -Monitor for signs of bleeding -SCDs to BLE while in bed -Avoid chemical anticoagulation in setting of recent blood loss anemia Endo: h/o DM, gout -Avoid hypoglycemia -SSI -Accu-Cheks q. 6hr The high probability of a clinically significant, sudden or life threatening deterioration of the [multi] system(s) required my full and direct attention, intervention and personal management. The aggregate critical care time was [60] minutes. This time is in addition to time spent performing reported procedures but includes the following: [x] Data Review and interpretation [x] Patient assessment and monitoring of vital signs [x] Documentation [x] Medication orders and management Disposition Plan: icu Total Time Spent with Patient (Minutes): 60 History Interval history: This is a 76-year-old female with HTN, Coumadin, dental caries, PVD s/p stenting right leg, DM, arthritis, depression, gout, and ? Pulmonary hypertension who presented to emergency department on 06/11 with complaints of pain to mandible area and throat and swelling. Work-up in the emergency department included CT scan of the head and neck which showed findings consistent with Jeremiah's angina and anesthesia was called for intubation. Anesthesia intubation attempts were unsuccessful and surgery was consulted for cricothyroidotomy which was unsuccessful in the emergency department and patient was taken to the OR for tracheostomy. Intubation procedure was complicated by development of pneumothorax and excessive bleeding. Patient given multiple FFP's and vitamin K several times who attempts to decrease INR. Lab work showed leukocytosis, supratherapeutic INR, hypernatremia, hyperchloremia, severe metabolic acidosis, hyperglycemia, hypocalcemia. Patient was admitted to the hospitalist service with consults to [facility], general surgery, infectious disease. Hospital course to date: 06/12: Patient received additional 2 units FFP and 1 unit PRBC and vitamin K today. Overnight critical care placed a femoral CVL. Patient sedated on f entanyl, propofol and Versed. Currently on Fabian-Synephrine and Levophed for blood pressure maintenance. Remains amatory support. Infectious disease consulted. Started on sliding scale insulin and recultured. COVID-19 PCR pending. Surgery at bedside to place chest tube. Hospitalist Physical - Constitutional Vitals: Temp Pulse Resp BP Pulse Ox 97.1 F L 66 16 130/69 100 06/12/21 16:00 06/12/21 18:30 06/12/21 18:30 06/12/21 18:30 06/12/21 18:30 General appearance: Present: severe distress - EENT Eyes: Present: PERRL, EOM intact - Neck Neck: Present: enlarged thyroid, masses or JVD - Respiratory Respiratory effort: normal Respiratory: bilateral: diminished - Cardiovascular Rhythm: regular Heart Sounds: Present: S1 & S2. Absent: systolic murmur, diastolic murmur - Extremities Extremities: no ischemia, pulses intact, pulses symmetrical, No edema, normal temperature, normal color Peripheral Pulses: within normal limits - Abdominal General gastrointestinal: soft, non-tender, non-distended, normal bowel sounds - Integumentary Integumentary: Present: warm, dry - Psychiatric Psychiatric: other (sedated) - Neurologic Neurologic: CNII-XII intact - Allied Health Allied health notes reviewed: nursing, RT, social work HEART Score - HEART Score Troponin: Troponin T < 0.010 ng/mL (0.00-0.029) 06/11/21 23:21 Results - Labs CBC & Chem 7: 06/12/21 17:00 06/12/21 11:05 Labs: Laboratory Last Values WBC 14.6 K/mm3 (4.5-11.0) H 06/12/21 11:05 RBC 3.52 M/mm3 (3.65-5.03) L 06/12/21 11:05 Hgb 7.5 gm/dl (10.1-14.3) L 06/12/21 17:00 Hct 24.0 % (30.3-42.9) L 06/12/21 17:00 MCV 79 fl (79-97) 06/12/21 11:05 MCH 24 pg (28-32) L 06/12/21 11:05 MCHC 31 % (30-34) 06/12/21 11:05 RDW 20.9 % (13.2-15.2) H 06/12/21 11:05 Plt Count 209 K/mm3 (140-440) 06/12/21 11:05 Lymph % (Auto) 9.2 % (13.4-35.0) L 06/11/21 19: [place] % (Auto) 1.4 % (0.0-7.3) 06/11/21 19: Eos % (Auto) 0.2 % (0.0-4.3) 06/11/21 19: Baso % (Auto) 0.2 % (0.0-1.8) 06/11/21 19: Lymph # (Auto) 1.4 K/mm3 (1.2-5.4) 06/11/21 19: [place] # (Auto) 0.2 K/mm3 (0.0-0.8) 06/11/21 19: Eos # (Auto) 0.0 K/mm3 (0.0-0.4) 06/11/21 19: Baso # (Auto) 0.0 K/mm3 (0.0-0.1) 06/11/21 19:29 Add Manual Diff Complete 06/12/21 01:45 Total Counted 100 06/12/21 01:45 Seg Neutrophils % 89.0 % (40.0-70.0) H 06/11/21 19:29 Seg Neuts % (Manual) 76.0 % (40.0-70.0) H 06/12/21 01:45 Band Neutrophils % 12.0 % 06/12/21 01:45 Lymphocytes % (Manual) 2.0 % (13.4-35.0) L 06/12/21 01:45 Reactive Lymphs % (Man) 0 % 06/12/21 01:45 Monocytes % (Manual) 8.0 % (0.0-7.3) H 06/12/21 01:45 Eosinophils % (Manual) 0 % (0.0-4.3) 06/12/21 01:45 Basophils % (Manual) 0 % (0.0-1.8) 06/12/21 01:45 Metamyelocytes % 1.0 % 06/12/21 01:45 Myelocytes % 1.0 % 06/12/21 01:45 Promyelocytes % 0 % 06/12/21 01:45 Blast Cells % 0 % 06/12/21 01:45 Nucleated RBC % Not Reportable 06/12/21 01:45 Seg Neutrophils # 14.0 K/mm3 (1.8-7.7) H 06/11/21 19:29 Seg Neutrophils # Man 16.4 K/mm3 (1.8-7.7) H 06/12/21 01:45 Band Neutrophils # 2.6 K/mm3 06/12/21 01:45 Lymphocytes # (Manual) 0.4 K/mm3 (1.2-5.4) L 06/12/21 01:45 Abs React Lymphs (Man) 0.0 K/mm3 06/12/21 01:45 Monocytes # (Manual) 1.7 K/mm3 (0.0-0.8) H 06/12/21 01:45 Eosinophils # (Manual) 0.0 K/mm3 (0.0-0.4) 06/12/21 01:45 Basophils # (Manual) 0.0 K/mm3 (0.0-0.1) 06/12/21 01:45 Metamyelocytes # 0.2 K/mm3 06/12/21 01:45 Myelocytes # 0.2 K/mm3 06/12/21 01:45 Promyelocytes # 0.0 K/mm3 06/12/21 01:45 Blast Cells # 0.0 K/mm3 06/12/21 01:45 WBC Morphology Not Reportable 06/12/21 01:45 Hypersegmented Neuts Not Reportable 06/12/21 01:45 Hyposegmented Neuts Not Reportable 06/12/21 01:45 Hypogranular Neuts Not Reportable 06/12/21 01:45 Smudge Cells Not Reportable 06/12/21 01:45 Toxic Granulation Not Reportable 06/12/21 01:45 Toxic Vacuolation Not Reportable 06/12/21 01:45 Dohle Bodies Not Reportable 06/12/21 01:45 Pelger-Huet Anomaly Not Reportable 06/12/21 01:45 Dennis Rods Not Reportable 06/12/21 01:45 Platelet Estimate Consistent w auto 06/12/21 01:45 Clumped Platelets Not Reportable 06/12/21 01:45 Plt Clumps, EDTA Not Reportable 06/12/21 01:45 Large Platelets Few 06/12/21 01:45 Giant Platelets Not Reportable 06/12/21 01:45 Platelet Satelliting Not Reportable 06/12/21 01:45 Plt Morphology Comment Not Reportable 06/12/21 01:45 RBC Morphology Not Reportable 06/12/21 01:45 Dimorphic RBCs Not Reportable 06/12/21 01:45 Polychromasia Not Reportable 06/12/21 01:45 Hypochromasia 3+ 06/12/21 01:45 Poikilocytosis Not Reportable 06/12/21 01:45 Anisocytosis 2+ 06/12/21 01:45 Microcytosis 2+ 06/12/21 01:45 Macrocytosis Not Reportable 06/12/21 01:45 Spherocytes Not Reportable 06/12/21 01:45 Pappenheimer Bodies Not Reportable 06/12/21 01:45 Sickle Cells Not Reportable 06/12/21 01:45 Target Cells Rare 06/12/21 01:45 Tear Drop Cells Not Reportable 06/12/21 01:45 Ovalocytes Few 06/12/21 01:45 Stomatocytes Few 06/12/21 01:45 Helmet Cells Not Reportable 06/12/21 01:45 [place] Bodies Not Reportable 06/12/21 01:45 [place] Rings Not Reportable 06/12/21 01:45 Nelsy Cells Rare 06/12/21 01:45 Bite Cells Not Reportable 06/12/21 01:45 Crenated Cell Not Reportable 06/12/21 01:45 Elliptocytes Few 06/12/21 01:45 Acanthocytes (Spur) Not Reportable 06/12/21 01:45 Rouleaux Not Reportable 06/12/21 01:45 Hemoglobin C Crystals Not Reportable 06/12/21 01:45 Schistocytes Not Reportable 06/12/21 01:45 Malaria parasites Not Reportable 06/12/21 01:45 [place] Bodies Not Reportable 06/12/21 01:45 Hem Pathologist Commnt No 06/12/21 01:45 PT 16.0 Sec. (12.2-14.9) H 06/12/21 17:00 INR 1.16 (0.87-1.13) H 06/12/21 17:00 APTT 54.8 Sec. (24.2-36.6) H 06/11/21 23:22 ABG pH 7.390 (7.320-7.450) 06/12/21 04:41 POC ABG pCO2 37.8 mmHg (32.0-48.0) 06/12/21 04:41 POC ABG pO2 224.6 mmHg (83-108) H 06/12/21 04:41 POC ABG HCO3 22.4 06/12/21 04:41 ABG O2 Saturation 100.0 (0-100) 06/12/21 04:41 POC ABG Base Excess -2.3 06/12/21 04:41 ABG Hemoglobin 7.3 (12.0-17.5) L 06/12/21 04:41 ABG Oxyhemoglobin 98.7 (94-98) H 06/12/21 04:41 ABG Methemoglobin 0.1 (0.0-1.5) 06/12/21 04:41 Carboxyhemoglobin 1.2 (0.5-1.5) 06/12/21 04:41 FiO2 % 60.0 06/12/21 04:41 Sodium 140 mmol/L (137-145) 06/12/21 11:05 Potassium 4.4 mmol/L (3.6-5.0) D 06/12/21 11:05 Chloride 103.1 mmol/L (98-107) 06/12/21 11:05 Carbon Dioxide 22 mmol/L (22-30) 06/12/21 11:05 Anion Gap 19 mmol/L 06/12/21 11:05 BUN 24 mg/dL (7-17) H 06/12/21 11:05 Creatinine 1.1 mg/dL (0.6-1.2) 06/12/21 11:05 Estimated GFR 59 ml/min 06/12/21 11:05 BUN/Creatinine Ratio 22 % 06/12/21 11:05 Glucose 324 mg/dL (65-100) H 06/12/21 11:05 POC Glucose 257 mg/dL (70-105) H 06/12/21 18:06 Calcium 7.5 mg/dL (8.4-10.2) L 06/12/21 11:05 Phosphorus 3.20 mg/dL (2.5-4.5) 06/12/21 11:05 Magnesium 1.70 mg/dL (1.7-2.3) 06/12/21 11:05 Total Bilirubin 0.40 mg/dL (0.1-1.2) 06/12/21 11:05 AST 70 units/L (5-40) H 06/12/21 11:05 ALT 57 units/L (7-56) H 06/12/21 11:05 Alkaline Phosphatase 69 units/L (35-129) 06/12/21 11:05 Troponin T < 0.010 ng/mL (0.00-0.029) 06/11/21 23:21 Total Protein 6.0 g/dL (6.3-8.2) L 06/12/21 11:05 Albumin 3.6 g/dL (3.9-5) L 06/12/21 11:05 Albumin/Globulin Ratio 1.5 % 06/12/21 11:05 Urine Color Yellow (Yellow) 06/12/21 17:00 Urine Turbidity Clear (Clear) 06/12/21 17:00 Urine pH 5.0 (5.0-7.0) 06/12/21 17:00 Ur Specific [place] 1.035 (1.003-1.030) H 06/12/21 17:00 Urine Protein 30 mg/dl mg/dL (Negative) 06/12/21 17:00 Urine Glucose (UA) 50 mg/dL (Negative) 06/12/21 17:00 Urine Ketones Tr mg/dL (Negative) 06/12/21 17:00 Urine Blood Neg (Negative) 06/12/21 17:00 Urine Nitrite Neg (Negative) 06/12/21 17:00 Urine Bilirubin Neg (Negative) 06/12/21 17:00 Urine Urobilinogen < 2.0 mg/dL (<2.0) 06/12/21 17:00 Ur Leukocyte Esterase Neg (Negative) 06/12/21 17:00 Urine WBC (Auto) < 1.0 /HPF (0.0-6.0) 06/12/21 17:00 Urine RBC (Auto) < 1.0 /HPF (0.0-6.0) 06/12/21 17:00 Coronavirus (PCR) Negative (Negative) 06/12/21 09:50 Blood Type O POSITIVE 06/11/21 19:20 Antibody Screen Negative 06/11/21 19:20 Crossmatch See Detail 06/11/21 19:20 Microbiology: Microbiology 06/12/21 09:40 Peripheral/Venous Blood Culture - Preliminary Culture in Progress 06/12/21 09:40 Peripheral/Venous Blood Culture - Preliminary Culture in Progress Lujan/IV: Voiding Method Indwelling Catheter Active Medications - Current Medications Current Medications: Generic Name Dose Route Start Last Admin Trade Name Freq PRN Reason Stop Dose Admin Famotidine 20 mg 06/12/21 10:00 06/12/21 10:25 Famotidine 20 Mg/2 Ml Inj IV 20 mg BID JOLENE Administration Fentanyl 50 mcg 06/11/21 22:55 Fentanyl 100 Mcg/2 Ml Inj IV Q10MIN PRN ANALGESIA Hydromorphone HCl 0.5 mg 06/11/21 20:42 Hydromorphone 1 Mg/1 Ml Inj IV Q3H PRN Pain , Severe (7-10) Sodium Chloride 1,000 mls @ 100 mls/hr 06/11/21 20:45 Nacl 0.9% 1000 Ml IV DIRECT JOLENE Cefepime HCl 2 gm in 100 mls @ 200 mls/hr 06/11/21 22:00 06/12/21 14:56 Cefepime/Ns 2 Gm/100 Ml IV 200 mls/hr Q8H JOLENE Administration Protocol Midazolam DRIP Premix 100 mg in 100 mls @ 1 mls/hr 06/11/21 23:00 06/12/21 02:07 Midazolam/Ns 100 Mg/100 Ml IV 2 mg/hr TITR JOLENE 2 mls/hr Titration Protocol 1 MG/HR Fentanyl Citrate 2,000 mcg in 100 mls @ 5.466 mls/hr 06/11/21 23:00 06/12/21 17:33 Fentanyl Drip Premix IV 3 mcg/kg/hr TITR JOLENE 16.397 mls/hr Administration Protocol 1 MCG/KG/HR Phenylephrine HCl 100 mg/ 100 mls @ 3 mls/hr 06/11/21 23:45 06/12/21 15:38 Sodium Chloride IV 0 mcg/min TITR JOLENE 0 mls/hr Titration Protocol 50 MCG/MIN NORepinephrine/NS 8 MG-250 ML 8 mg in 250 mls @ 3.75 mls/hr 06/12/21 02:00 06/12/21 06:50 Norepinephrine/Ns 8 Mg-250 Ml (Double Conc) IV 3 mcg/min TITRATE JOLENE 5.625 mls/hr Titration Protocol 2 MCG/MIN Vancomycin HCl 2,000 mg/ 540 mls @ 250 mls/hr 06/12/21 12:00 06/12/21 13:00 Sodium Chloride IV 250 mls/hr Q12H JOLENE Administration Propofol 1,000 mg in 100 mls @ 3.279 mls/hr 06/12/21 03:00 06/12/21 15:38 Diprivan 10 Mg/Ml IV 35 mcg/kg/min TITR JOLENE 22.956 mls/hr Titration Protocol 5 MCG/KG/MIN Metronidazole 500 mg in 100 mls @ 100 mls/hr 06/12/21 11:00 06/12/21 11:16 Flagyl 500 Mg/100 Ml IV 100 mls/hr Q8H JOLENE Administration Protocol Insulin Human Lispro 0 unit 06/12/21 12:00 Insulin Lispro 100 Unit/Ml SUB-Q Q6HR [facility] Protocol Methylprednisolone Sodium Succinate 125 mg 06/11/21 22:00 06/12/21 14:57 Methylprednisolone Sod Succinate 125 Mg/2 Ml Inj IV 125 mg Q8HR JOLENE Administration Metoclopramide HCl 10 mg 06/11/21 20:42 Metoclopramide 10 Mg/2 Ml Inj IV Q6H PRN Nausea And Vomiting Ondansetron HCl 4 mg 06/11/21 20:42 Ondansetron 4 Mg/2 Ml Inj IV Q3H PRN Nausea And Vomiting Sodium Chloride 10 ml 06/11/21 22:00 06/12/21 10:26 Sodium Chloride 0.9% 10 Ml Flush Syringe IV 10 ml BID JOLENE Administration Sodium Chloride 10 ml 06/11/21 20:42 Sodium Chloride 0.9% 10 Ml Flush Syringe IV PRN PRN LINE FLUSH <EDILBERTO LUCIANO - Last Filed: 06/13/21 13:34> Assessment and Plan Assessment and plan: I saw and evaluated the patient. Discussed with the nurse practitioner and agree with their findings and plan as documented in this note. Hospitalist Physical - Constitutional Vitals: Temp Pulse Resp BP Pulse Ox 99.4 F 134 H 16 205/100 79 L 06/13/21 10:00 06/13/21 13:20 06/13/21 13:20 06/13/21 13:20 06/13/21 13:20 HEART Score - HEART Score Troponin: Troponin T < 0.010 ng/mL (0.00-0.029) 06/11/21 23:21 Results - Labs CBC & Chem 7: 06/13/21 07:30 06/13/21 07:30 Labs: Laboratory Last Values WBC 14.6 K/mm3 (4.5-11.0) H 06/12/21 11:05 RBC 3.52 M/mm3 (3.65-5.03) L 06/12/21 11:05 Hgb 6.8 gm/dl (10.1-14.3) L 06/13/21 07:30 Hct 21.7 % (30.3-42.9) L 06/13/21 07:30 MCV 79 fl (79-97) 06/12/21 11:05 MCH 24 pg (28-32) L 06/12/21 11:05 MCHC 31 % (30-34) 06/12/21 11:05 RDW 20.9 % (13.2-15.2) H 06/12/21 11:05 Plt Count 209 K/mm3 (140-440) 06/12/21 11:05 Lymph % (Auto) 9.2 % (13.4-35.0) L 06/11/21 19:29 [place] % (Auto) 1.4 % (0.0-7.3) 06/11/21 19:29 Eos % (Auto) 0.2 % (0.0-4.3) 06/11/21 19:29 Baso % (Auto) 0.2 % (0.0-1.8) 06/11/21 19:29 Lymph # (Auto) 1.4 K/mm3 (1.2-5.4) 06/11/21 19:29 [place] # (Auto) 0.2 K/mm3 (0.0-0.8) 06/11/21 19: Eos # (Auto) 0.0 K/mm3 (0.0-0.4) 06/11/21 19:29 Baso # (Auto) 0.0 K/mm3 (0.0-0.1) 06/11/21 19:29 Add Manual Diff Complete 06/12/21 01:45 Total Counted 100 06/12/21 01:45 Seg Neutrophils % 89.0 % (40.0-70.0) H 06/11/21 19:29 Seg Neuts % (Manual) 76.0 % (40.0-70.0) H 06/12/21 01:45 Band Neutrophils % 12.0 % 06/12/21 01:45 Lymphocytes % (Manual) 2.0 % (13.4-35.0) L 06/12/21 01:45 Reactive Lymphs % (Man) 0 % 06/12/21 01:45 Monocytes % (Manual) 8.0 % (0.0-7.3) H 06/12/21 01:45 Eosinophils % (Manual) 0 % (0.0-4.3) 06/12/21 01:45 Basophils % (Manual) 0 % (0.0-1.8) 06/12/21 01:45 Metamyelocytes % 1.0 % 06/12/21 01:45 Myelocytes % 1.0 % 06/12/21 01:45 Promyelocytes % 0 % 06/12/21 01:45 Blast Cells % 0 % 06/12/21 01:45 Nucleated RBC % Not Reportable 06/12/21 01:45 Seg Neutrophils # 14.0 K/mm3 (1.8-7.7) H 06/11/21 19:29 Seg Neutrophils # Man 16.4 K/mm3 (1.8-7.7) H 06/12/21 01:45 Band Neutrophils # 2.6 K/mm3 06/12/21 01:45 Lymphocytes # (Manual) 0.4 K/mm3 (1.2-5.4) L 06/12/21 01:45 Abs React Lymphs (Man) 0.0 K/mm3 06/12/21 01:45 Monocytes # (Manual) 1.7 K/mm3 (0.0-0.8) H 06/12/21 01:45 Eosinophils # (Manual) 0.0 K/mm3 (0.0-0.4) 06/12/21 01:45 Basophils # (Manual) 0.0 K/mm3 (0.0-0.1) 06/12/21 01:45 Metamyelocytes # 0.2 K/mm3 06/12/21 01:45 Myelocytes # 0.2 K/mm3 06/12/21 01:45 Promyelocytes # 0.0 K/mm3 06/12/21 01:45 Blast Cells # 0.0 K/mm3 06/12/21 01:45 WBC Morphology Not Reportable 06/12/21 01:45 Hypersegmented Neuts Not Reportable 06/12/21 01:45 Hyposegmented Neuts Not Reportable 06/12/21 01:45 Hypogranular Neuts Not Reportable 06/12/21 01:45 Smudge Cells Not Reportable 06/12/21 01:45 Toxic Granulation Not Reportable 06/12/21 01:45 Toxic Vacuolation Not Reportable 06/12/21 01:45 Dohle Bodies Not Reportable 06/12/21 01:45 Pel[place]uet Anomaly Not Reportable 06/12/21 01:45 [place] Rods Not Reportable 06/12/21 01:45 Platelet Estimate Consistent w auto 06/12/21 01:45 Clumped Platelets Not Reportable 06/12/21 01:45 Plt Clumps, EDTA Not Reportable 06/12/21 01:45 Large Platelets Few 06/12/21 01:45 Giant Platelets Not Reportable 06/12/21 01:45 Platelet Satelliting Not Reportable 06/12/21 01:45 Plt Morphology Comment Not Reportable 06/12/21 01:45 RBC Morphology Not Reportable 06/12/21 01:45 Dimorphic RBCs Not Reportable 06/12/21 01:45 Polychromasia Not Reportable 06/12/21 01:45 Hypochromasia 3+ 06/12/21 01:45 Poikilocytosis Not Reportable 06/12/21 01:45 Anisocytosis 2+ 06/12/21 01:45 Microcytosis 2+ 06/12/21 01:45 Macrocytosis Not Reportable 06/12/21 01:45 Spherocytes Not Reportable 06/12/21 01:45 Pappenheimer Bodies Not Reportable 06/12/21 01:45 Sickle Cells Not Reportable 06/12/21 01:45 Target Cells Rare 06/12/21 01:45 Tear Drop Cells Not Reportable 06/12/21 01:45 Ovalocytes Few 06/12/21 01:45 Stomatocytes Few 06/12/21 01:45 Helmet Cells Not Reportable 06/12/21 01:45 [place] Bodies Not Reportable 06/12/21 01:45 [place] Rings Not Reportable 06/12/21 01:45 [place]elsy Cells Rare 06/12/21 01:45 Bite Cells Not Reportable 06/12/21 01:45 Crenated Cell Not Reportable 06/12/21 01:45 Elliptocytes Few 06/12/21 01:45 Acanthocytes (Spur) Not Reportable 06/12/21 01:45 Rouleaux Not Reportable 06/12/21 01:45 Hemoglobin C Crystals Not Reportable 06/12/21 01:45 Schistocytes Not Reportable 06/12/21 01:45 Malaria parasites Not Reportable 06/12/21 01:45 Edin Bodies Not Reportable 06/12/21 01:45 Hem Pathologist Commnt No 06/12/21 01:45 PT 16.0 Sec. (12.2-14.9) H 06/12/21 17:00 INR 1.16 (0.87-1.13) H 06/12/21 17:00 APTT 54.8 Sec. (24.2-36.6) H 06/11/21 23:22 ABG pH 7.039 pH Units (7.350-7.450) L* 06/13/21 12:04 POC ABG pCO2 25.6 mmHg (32.0-48.0) L 06/13/21 04:31 ABG pCO2 66.1 mm Hg 06/13/21 12:04 POC ABG pO2 138.8 mmHg (83-108) H 06/13/21 04:31 ABG pO2 63.1 mm Hg (80.0-90.0) L 06/13/21 12:04 POC ABG HCO3 21.4 06/13/21 04:31 ABG HCO3 17.4 mmol/L (20.0-26.0) L 06/13/21 12:04 ABG O2 Saturation 73.4 % (95.0-99.0) L 06/13/21 12:04 ABG O2 Content 7.8 (0.0-44) 06/13/21 12:04 POC ABG Base Excess -0.7 06/13/21 04:31 ABG Base Excess -12.6 mmol/L (-2.0-3.0) L 06/13/21 12:04 ABG Hemoglobin 7.7 gm/dl (12.0-16.0) L 06/13/21 12:04 ABG Oxyhemoglobin 98.1 (94-98) H 06/13/21 04:31 ABG Carboxyhemoglobin 1.4 % (0.0-5.0) 06/13/21 12:04 ABG Methemoglobin 0.8 % (0.0-1.5) 06/13/21 12:04 Oxyhemoglobin 71.8 % (95.0-99.0) L 06/13/21 12:04 Carboxyhemoglobin 0.8 (0.5-1.5) 06/13/21 04:31 FiO2 100 % 06/13/21 12:04 FiO2 % 40.0 06/13/21 04:31 Sodium 141 mmol/L (137-145) 06/13/21 07:30 Potassium 3.9 mmol/L (3.6-5.0) 06/13/21 07:30 Chloride 108.9 mmol/L (98-107) H 06/13/21 07:30 Carbon Dioxide 22 mmol/L (22-30) 06/13/21 07:30 Anion Gap 14 mmol/L 06/13/21 07:30 BUN 28 mg/dL (7-17) H 06/13/21 07:30 Creatinine 1.0 mg/dL (0.6-1.2) 06/13/21 07:30 Estimated GFR > 60 ml/min 06/13/21 07:30 BUN/Creatinine Ratio 28 % 06/13/21 07:30 Glucose 293 mg/dL (65-100) H 06/13/21 07:30 POC Glucose 286 mg/dL (70-105) H 06/13/21 05:19 Calcium 7.2 mg/dL (8.4-10.2) L 06/13/21 07:30 Phosphorus 2.80 mg/dL (2.5-4.5) 06/13/21 07:30 Magnesium 1.80 mg/dL (1.7-2.3) 06/13/21 07:30 Total Bilirubin 0.30 mg/dL (0.1-1.2) 06/13/21 07:30 AST 106 units/L (5-40) H 06/13/21 07:30 ALT 92 units/L (7-56) H 06/13/21 07:30 Alkaline Phosphatase 60 units/L (35-129) 06/13/21 07:30 Troponin T < 0.010 ng/mL (0.00-0.029) 06/11/21 23:21 Total Protein 5.6 g/dL (6.3-8.2) L 06/13/21 07:30 Albumin 3.3 g/dL (3.9-5) L 06/13/21 07:30 Albumin/Globulin Ratio 1.4 % 06/13/21 07:30 Urine Color Yellow (Yellow) 06/12/21 17:00 Urine Turbidity Clear (Clear) 06/12/21 17:00 Urine pH 5.0 (5.0-7.0) 06/12/21 17:00 Ur Specific [place] 1.035 (1.003-1.030) H 06/12/21 17:00 Urine Protein 30 mg/dl mg/dL (Negative) 06/12/21 17:00 Urine Glucose (UA) 50 mg/dL (Negative) 06/12/21 17:00 Urine Ketones Tr mg/dL (Negative) 06/12/21 17:00 Urine Blood Neg (Negative) 06/12/21 17:00 Urine Nitrite Neg (Negative) 06/12/21 17:00 Urine Bilirubin Neg (Negative) 06/12/21 17:00 Urine Urobilinogen < 2.0 mg/dL (<2.0) 06/12/21 17:00 Ur Leukocyte Esterase Neg (Negative) 06/12/21 17:00 Urine WBC (Auto) < 1.0 /HPF (0.0-6.0) 06/12/21 17:00 Urine RBC (Auto) < 1.0 /HPF (0.0-6.0) 06/12/21 17:00 Coronavirus (PCR) Negative (Negative) 06/12/21 09:50 Blood Type O POSITIVE 06/11/21 19:20 Antibody Screen Negative 06/11/21 19:20 Crossmatch See Detail 06/11/21 19:20 Microbiology: Microbiology 06/12/21 09:40 Peripheral/Venous Blood Culture - Preliminary NO GROWTH AFTER 24 HOURS 06/12/21 09:40 Peripheral/Venous Blood Culture - Preliminary NO GROWTH AFTER 24 HOURS Lujan/IV: Voiding Method Indwelling Catheter Active Medications - Current Medications Current Medications: Generic Name Dose Route Start Last Admin Trade Name Freq PRN Reason Stop Dose Admin Famotidine 20 mg 06/12/21 10:00 06/13/21 13:25 Famotidine 20 Mg/2 Ml Inj IV 20 mg BID JOLENE Administration Fentanyl 50 mcg 06/11/21 22:55 Fentanyl 100 Mcg/2 Ml Inj IV Q10MIN PRN ANALGESIA Hydromorphone HCl 0.5 mg 06/11/21 20:42 Hydromorphone 1 Mg/1 Ml Inj IV Q3H PRN Pain , Severe (7-10) Cefepime HCl 2 gm in 100 mls @ 200 mls/hr 06/11/21 22:00 06/13/21 05:20 Cefepime/Ns 2 Gm/100 Ml IV 200 mls/hr Q8H JOLENE Administration Protocol Midazolam DRIP Premix 100 mg in 100 mls @ 1 mls/hr 06/11/21 23:00 06/13/21 13:24 Midazolam/Ns 100 Mg/100 Ml IV 2 mg/hr TITR JOLENE 2 mls/hr Administration Protocol 1 MG/HR Fentanyl Citrate 2,000 mcg in 100 mls @ 5.466 mls/hr 06/11/21 23:00 06/13/21 10:00 Fentanyl Drip Premix IV 3 mcg/kg/hr TITR JOLENE 16.397 mls/hr Administration Protocol 1 MCG/KG/HR Phenylephrine HCl 100 mg/ 100 mls @ 3 mls/hr 06/11/21 23:45 06/12/21 15:38 Sodium Chloride IV 0 mcg/min TITR JOLENE 0 mls/hr Titration Protocol 50 MCG/MIN NORepinephrine/NS 8 MG-250 ML 8 mg in 250 mls @ 3.75 mls/hr 06/12/21 02:00 06/13/21 13:23 Norepinephrine/Ns 8 Mg-250 Ml (Double Conc) IV 6 mcg/min TITRATE JOLENE 11.25 mls/hr Administration Protocol 2 MCG/MIN Vancomycin HCl 2,000 mg/ 540 mls @ 250 mls/hr 06/12/21 12:00 06/13/21 13:24 Sodium Chloride IV 250 mls/hr Q12H JOLENE Administration Propofol 1,000 mg in 100 mls @ 3.279 mls/hr 06/12/21 03:00 06/13/21 10:00 Diprivan 10 Mg/Ml IV 40 mcg/kg/min TITR JOLENE 26.236 mls/hr Administration Protocol 5 MCG/KG/MIN Metronidazole 500 mg in 100 mls @ 100 mls/hr 06/13/21 06:00 06/13/21 13:25 Flagyl 500 Mg/100 Ml IV 100 mls/hr Q8HR JOLENE Administration Protocol Sodium Chloride 500 mls @ 0 mls/hr 06/13/21 09:04 Nacl 0.9% 500 Ml IV 06/13/21 23:59 ONCE JOLENE As Directed Insulin Human Lispro 0 unit 06/12/21 12:00 06/13/21 09:31 Insulin Lispro 100 Unit/Ml SUB-Q Not Given Q6HR [facility] Protocol Methylprednisolone Sodium Succinate 125 mg 06/11/21 22:00 06/13/21 13:25 Methylprednisolone Sod Succinate 125 Mg/2 Ml Inj IV 125 mg Q8HR JOLENE Administration Metoclopramide HCl 10 mg 06/11/21 20:42 Metoclopramide 10 Mg/2 Ml Inj IV Q6H PRN Nausea And Vomiting Ondansetron HCl 4 mg 06/11/21 20:42 Ondansetron 4 Mg/2 Ml Inj IV Q3H PRN Nausea And Vomiting Sodium Chloride 10 ml 06/11/21 22:00 06/12/21 21:31 Sodium Chloride 0.9% 10 Ml Flush Syringe IV 10 ml BID JOLENE Administration Sodium Chloride 10 ml 06/11/21 20:42 Sodium Chloride 0.9% 10 Ml Flush Syringe IV PRN PRN LINE FLUSH
[2021-06-12] MEDS: INSULIN LISPRO 100 UNIT/ML SUB-Q SCH (23:21)
[2021-06-13 01:02] LABS: Hematocrit 23.5 % (30.3-42.9); Hemoglobin 7.6 gm/dl (10.1-14.3)
[2021-06-13] MEDS: VANCOMYCIN 2,000 MG in SODIUM CHLORIDE 0.9% 500 ML 500 ML IV SCH ×2 (01:09→13:24)
[2021-06-13] MEDS: metroNIDAZOLE/NS 500 MG/100 ML 500 MG/100 ML BAG IV SCH ×3 (05:19→21:27)
[2021-06-13] MEDS: methylPREDNISolone Sod Succinate 125 MG/2 ML INJ IV SCH ×3 (05:19→21:27)
[2021-06-13] MEDS: CEFEPIME/NS 2 GM/100 ML 2 GM/100 ML BAG IV SCH ×3 (05:20→21:44)
[2021-06-13] MEDS: fentaNYL DRIP Premix 2,000 MCG/100 ML BAG IV SCH ×2 (05:20→10:00)
[2021-06-13] MEDS: INSULIN LISPRO 100 UNIT/ML SUB-Q SCH ×4 (05:29→18:43)
[2021-06-13 08:17] LABS: Alanine Aminotransferase 92 units/L (7-56); Albumin 3.3 g/dL (3.9-5); BUN/Creatinine Ratio 28; Blood Urea Nitrogen 28 mg/dL (7-17); Calcium 7.2 mg/dL (8.4-10.2); Hemolysis Index 2
[2021-06-13 08:30] LABS: Hematocrit 21.7 % (30.3-42.9); Hemoglobin 6.8 gm/dl (10.1-14.3)
[2021-06-13] MEDS ORDERED: SODIUM CHLORIDE 0.9% 500 ML 500 ML IV SCH (09:04)
--- NOTE | 2021-06-13 10:14 | Anesthesia Day of Surgery ---
Anesthesia Day of Surgery - Day of Surgery Patient Examined: Yes Patient H&P Reviewed: Yes Patient is NPO: Yes (Chart reviewed)
[2021-06-13] MEDS ORDERED: LACTATED RINGERS 1,000 ML ONE (10:33)
[2021-06-13] MEDS ORDERED: PHENYLEPHRINE/NS 1,000 MCG/10 ML SYRINGE (OR USE) IV ONE ×2 (11:16)
[2021-06-13] MEDS ORDERED: ROCURONIUM 50 MG/5 ML INJ IV ONE (11:33)
[2021-06-13] MEDS ORDERED: EPINEPHrine 1 MG/10 ML SYRINGE ONE (11:33)
[2021-06-13] MEDS ORDERED: SODIUM CHLORIDE 0.9% IRR 1,500 ML BOTTLE IR ONE (12:00)
[2021-06-13] MEDS ORDERED: ePHEDrine SULFATE 50 MG/1 ML INJ ONE (12:02)
[2021-06-13] MEDS ORDERED: ALBUMIN HUMAN 5% (12.5 GM/250 ML) INJ IV ONE (12:03)
[2021-06-13 12:17] LABS: ABG Base Excess -12.6 mmol/L (-2.0-3.0); ABG HCO3 17.4 mmol/L (20.0-26.0); ABG Methemoglobin 0.8 % (0.0-1.5); ABG Oxygen Saturation 73.4 % (95.0-99.0); ABG PCO2 66.1 mm Hg; ABG PO2 63.1 mm Hg (80.0-90.0)
[2021-06-13 12:18] LABS: ABG PH 7.039 pH Units (7.350-7.450)
--- NOTE | 2021-06-13 12:20 | XRay Report ---
CHEST 1 VIEW 06/13/2021 11:15 AM INDICATION / CLINICAL INFORMATION: Tube placement. COMPARISON: 01/21/2022 FINDINGS/IMPRESSION: SUPPORT DEVICES: There is a endotracheal tube terminating 3.0 cm the devin. There is a right apical chest tube, unchanged from prior radiograph. HEART / MEDIASTINUM: Stable. LUNGS / PLEURA: Left basilar opacities, likely representing atelectasis. There appears to be increase d opacification within the right pleural space as compared to previous radiograph suggesting hydropne umothorax. ADDITIONAL FINDINGS: No significant additional findings. Signer Name: Thomas Nicole DO Signed: 06/13/2021 12:15 PM Workstation Name: [id number]
--- NOTE | 2021-06-13 12:59 | Progress Note ---
Assessment and Plan Cultures: 06/12/2021 blood cultures: no growth A/P: 76-year-old female with diabetes, hypertension, gout was admitted to the hospital on 06/11/2021 with swelling of the submandibular region, tongue and difficulty breathing, labs also revealed severe coagulopathy due to Coumadin. CT scan of the neck showed findings concerning for Jeremiah's angina with significant airway narrowing: #Septic shock: Secondary to Jeremiah's angina secondary to dental caries, also probably component of hemorrhagic shock given blood loss anemia #Acute respiratory failure: on the vent #Right-sided pneumothorax: s/p chest tube. #Diabetes mellitus, uncontrolled #Coagulopathy: Secondary to Coumadin. #Acute blood loss anemia Recs: -continue IV cefepime, Flagyl and vancomycin -guarded prognosis Silvana Barros MD, FACP, [facility] ([facility] O: [phone] F: [phone] Subjective Date of service: 06/13/21 Interval history: Just got back from the OR, got her airway secured. Remains critically ill, on pressors. Objective - Exam Narrative Exam: Physical Exam: Constitutional: sedated, intubated, on the vent Head, Ears, Nose: Normocephalic, atraumatic. External ears, nose normal Eyes: Conjunctivae/corneas clear. No icterus. No ptosis. Oral: intubated Cardiovascular: S1, S2 + Respiratory: AE fair, right-sided chest tube GI: Soft, bowel sounds + Musculoskeletal: No pedal edema, no cyanosis. Skin: No rash or abscess Hem/Lymphatic: No palpable cervical or supraclavicular nodes. No lymphangitis Psych: no agitation Neurological: sedated, intubated, on the vent, exam limited - Constitutional Vitals: Vital Signs Temp Pulse Resp BP Pulse Ox 99.4 F 67 14 181/93 99 06/13/21 10:00 06/13/21 10:10 06/13/21 10:10 06/13/21 10:10 06/13/21 10:10 Temperature -Last 24 Hours Temperature 99.4 F Temperature 100.6 F Temperature 99.3 F Temperature 99.8 F Temperature 99.0 F Temperature 97.1 F - Labs CBC & Chem 7: 06/13/21 07:30 06/13/21 07:30 Labs: Abnormal lab results 06/11/21 06/12/21 06/12/21 Range/Units 19:20 17:00 17:00 Hgb 7.5 L (10.1-14.3) gm/dl Hct 24.0 L (30.3-42.9) % PT (12.2-14.9) Sec. INR (0.87-1.13) ABG pH (7.320-7.450) POC ABG pCO2 (32.0-48.0) mmHg POC ABG pO2 (83-108) mmHg ABG pO2 (80.0-90.0) mm Hg ABG HCO3 (20.0-26.0) mmol/L ABG O2 Saturation (95.0-99.0) % ABG Base Excess (-2.0-3.0) mmol/L ABG Hemoglobin (12.0-17.5) ABG Oxyhemoglobin (94-98) Oxyhemoglobin (95.0-99.0) % Chloride (98-107) mmol/L BUN (7-17) mg/dL Glucose (65-100) mg/dL POC Glucose (70-105) mg/dL Calcium (8.4-10.2) mg/dL AST (5-40) units/L ALT (7-56) units/L Total Protein (6.3-8.2) g/dL Albumin (3.9-5) g/dL Ur Specific [place] 1.035 H (1.003-1.030) Crossmatch See Detail 06/12/21 06/12/21 06/12/21 Range/Units 17:00 18:06 23:00 Hgb 7.6 L (10.1-14.3) gm/dl Hct 23.5 L (30.3-42.9) % PT 16.0 H (12.2-14.9) Sec. INR 1.16 H (0.87-1.13) ABG pH (7.320-7.450) POC ABG pCO2 (32.0-48.0) mmHg POC ABG pO2 (83-108) mmHg ABG pO2 (80.0-90.0) mm Hg ABG HCO3 (20.0-26.0) mmol/L ABG O2 Saturation (95.0-99.0) % ABG Base Excess (-2.0-3.0) mmol/L ABG Hemoglobin (12.0-17.5) ABG Oxyhemoglobin (94-98) Oxyhemoglobin (95.0-99.0) % Chloride (98-107) mmol/L BUN (7-17) mg/dL Glucose (65-100) mg/dL POC Glucose 257 H (70-105) mg/dL Calcium (8.4-10.2) mg/dL AST (5-40) units/L ALT (7-56) units/L Total Protein (6.3-8.2) g/dL Albumin (3.9-5) g/dL Ur Specific [place] (1.003-1.030) Crossmatch 06/12/21 06/13/21 06/13/21 Range/Units 23:05 04:31 05:19 Hgb (10.1-14.3) gm/dl Hct (30.3-42.9) % PT (12.2-14.9) Sec. INR (0.87-1.13) ABG pH 7.541 H (7.320-7.450) POC ABG pCO2 25.6 L (32.0-48.0) mmHg POC ABG pO2 138.8 H (83-108) mmHg ABG pO2 (80.0-90.0) mm Hg ABG HCO3 (20.0-26.0) mmol/L ABG O2 Saturation (95.0-99.0) % ABG Base Excess (-2.0-3.0) mmol/L ABG Hemoglobin 7.3 L (12.0-17.5) ABG Oxyhemoglobin 98.1 H (94-98) Oxyhemoglobin (95.0-99.0) % Chloride (98-107) mmol/L BUN (7-17) mg/dL Glucose (65-100) mg/dL POC Glucose 300 H 286 H (70-105) mg/dL Calcium (8.4-10.2) mg/dL AST (5-40) units/L ALT (7-56) units/L Total Protein (6.3-8.2) g/dL Albumin (3.9-5) g/dL Ur Specific [place] (1.003-1.030) Crossmatch 06/13/21 06/13/21 06/13/21 Range/Units 07:30 07:30 12:04 Hgb 6.8 L (10.1-14.3) gm/dl Hct 21.7 L (30.3-42.9) % PT (12.2-14.9) Sec. INR (0.87-1.13) ABG pH 7.039 L* (7.320-7.450) POC ABG pCO2 (32.0-48.0) mmHg POC ABG pO2 (83-108) mmHg ABG pO2 63.1 L (80.0-90.0) mm Hg ABG HCO3 17.4 L (20.0-26.0) mmol/L ABG O2 Saturation 73.4 L (95.0-99.0) % ABG Base Excess -12.6 L (-2.0-3.0) mmol/L ABG Hemoglobin 7.7 L (12.0-17.5) ABG Oxyhemoglobin (94-98) Oxyhemoglobin 71.8 L (95.0-99.0) % Chloride 108.9 H (98-107) mmol/L BUN 28 H (7-17) mg/dL Glucose 293 H (65-100) mg/dL POC Glucose (70-105) mg/dL Calcium 7.2 L (8.4-10.2) mg/dL AST 106 H (5-40) units/L ALT 92 H (7-56) units/L Total Protein 5.6 L (6.3-8.2) g/dL Albumin 3.3 L (3.9-5) g/dL Ur Specific [place] (1.003-1.030) Crossmatch
[2021-06-13] MEDS: NORepinephrine/NS 8 MG-250 ML 8 MG/250 ML INFUS..BTL IV SCH (13:23)
[2021-06-13] MEDS: MIDAZOLAM/NS Drip 100mg/100ml 100 MG/100 ML BAG IV SCH (13:24)
[2021-06-13] MEDS: FAMOTIDINE 20 MG/2 ML INJ IV SCH ×2 (13:25→21:27)
--- NOTE | 2021-06-13 13:55 | Progress Note ---
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 06/13/21: Patient to back to OR today. BLood transfusion. Will send DIC panel and may need to given cryo if over 6 units of PRBC's given. Patient will likely need trach and peg as we need to address nutrition. Chest tube placed, large bore now. Patient now with right sided effusion. Hemothorax???. Will continue to monitor output. Needs picc line as femoral should come out soon. Continue pressors. Continue sedation for pain control and comfort. Guarded prognosis. Surgery comfortable with neck and current situation so they have not request transfer. 1. Placed right femoral central line. pressors can run through this. 2. Repeat chemistry stat given bicarb of 8 and blood sugar of greater than 600. Ordering FSBS now. Earlier bicarb was 25. If accurate will need bicarb drip and vasopressin but not sure as pH on blood gas was normal done around the same time. 3. Coagulopathy is improving. INR down to 4.55 and PTT and pT improving. Will continue to give FFP. Ordered more vitamin K. H/H is stable but patient is oozing from neck and mouth. 4. Vasopressor for blood pressure. Need to keep map 65 and greater 5. Lujan is needed for accurate I/O 6. Surgery called by [facility] about current CT situation. They state they will reassess in the am. I have reviewed the images myself. If I can position the patient safely without compromising the airway after adequate sedation, may consider placing chest tube now as INR is better and FFP is hanging. Patient is morbidly obese so shits could move the ET tube so if not safe, will wait until surgery comes in the morning. 7. Would not attempt to pass OG or NG tube given current situation in neck 8. Will discuss with surgery tomorrow but I feel this patient should be gann sferred to a tertiary care facility with ENT as we do not have that service here. CCT 31 minutes. Subjective Date of service: 06/13/21 Interval history: Sedated, still bleeding. Objective Vital Signs - 12hr 06/13/21 06/13/21 06/13/21 01:56 02:00 02:06 Temperature Pulse Rate 63 63 63 Pulse Rate [ From Monitor] Respiratory 16 16 16 Rate Blood Pressure 121/69 123/68 123/68 O2 Sat by Pulse 100 100 100 Oximetry 06/13/21 06/13/21 06/13/21 02:10 02:16 02:20 Temperature Pulse Rate 64 63 66 Pulse Rate [ From Monitor] Respiratory 16 16 16 Rate Blood Pressure 123/68 123/68 123/68 O2 Sat by Pulse 100 100 100 Oximetry 06/13/21 06/13/21 06/13/21 02:26 02:30 02:36 Temperature Pulse Rate 62 63 63 Pulse Rate [ From Monitor] Respiratory 16 16 16 Rate Blood Pressure 123/68 124/70 124/70 O2 Sat by Pulse 100 100 100 Oximetry 06/13/21 06/13/21 06/13/21 02:40 02:46 02:50 Temperature Pulse Rate 66 61 65 Pulse Rate [ From Monitor] Respiratory 16 16 16 Rate Blood Pressure 124/70 124/70 124/70 O2 Sat by Pulse 100 100 100 Oximetry 06/13/21 06/13/21 06/13/21 02:56 03:00 03:06 Temperature Pulse Rate 62 64 65 Pulse Rate [ From Monitor] Respiratory 16 16 16 Rate Blood Pressure 124/70 124/60 124/60 O2 Sat by Pulse 100 100 100 Oximetry 06/13/21 06/13/21 06/13/21 03:10 03:16 03:20 Temperature Pulse Rate 65 64 65 Pulse Rate [ From Monitor] Respiratory 16 16 16 Rate Blood Pressure 124/60 124/60 124/60 O2 Sat by Pulse 100 100 100 Oximetry 06/13/21 06/13/21 06/13/21 03:26 03:30 03:36 Temperature Pulse Rate 63 62 66 Pulse Rate [ From Monitor] Respiratory 16 16 16 Rate Blood Pressure 124/60 125/66 125/66 O2 Sat by Pulse 100 100 100 Oximetry 06/13/21 06/13/21 06/13/21 03:40 03:46 03:50 Temperature Pulse Rate 63 64 65 Pulse Rate [ From Monitor] Respiratory 16 16 16 Rate Blood Pressure 125/66 125/66 125/66 O2 Sat by Pulse 100 100 100 Oximetry 06/13/21 06/13/21 06/13/21 03:56 04:00 04:06 Temperature 99.3 F Pulse Rate 64 61 63 Pulse Rate [ 65 From Monitor] Respiratory 16 16 16 Rate Blood Pressure 125/66 118/67 118/67 O2 Sat by Pulse 100 100 100 Oximetry 06/13/21 06/13/21 06/13/21 04:10 04:16 04:20 Temperature Pulse Rate 66 63 65 Pulse Rate [ From Monitor] Respiratory 16 16 16 Rate Blood Pressure 118/67 118/67 118/67 O2 Sat by Pulse 100 100 100 Oximetry 06/13/21 06/13/21 06/13/21 04:26 04:30 04:36 Temperature Pulse Rate 65 65 65 Pulse Rate [ From Monitor] Respiratory 16 16 16 Rate Blood Pressure 118/67 118/63 118/63 O2 Sat by Pulse 100 100 100 Oximetry 06/13/21 06/13/21 06/13/21 04:40 04:46 04:50 Temperature Pulse Rate 65 78 60 Pulse Rate [ From Monitor] Respiratory 16 16 16 Rate Blood Pressure 118/63 118/63 118/63 O2 Sat by Pulse 100 100 100 Oximetry 06/13/21 06/13/21 06/13/21 04:56 05:00 05:06 Temperature Pulse Rate 62 63 66 Pulse Rate [ From Monitor] Respiratory 16 16 20 Rate Blood Pressure 118/63 131/71 131/71 O2 Sat by Pulse 100 100 100 Oximetry 06/13/21 06/13/21 06/13/21 05:10 05:16 05:20 Temperature Pulse Rate 62 64 62 Pulse Rate [ From Monitor] Respiratory 15 16 17 Rate Blood Pressure 131/71 131/71 131/71 O2 Sat by Pulse 100 100 100 Oximetry 06/13/21 06/13/21 06/13/21 05:26 05:30 05:36 Temperature Pulse Rate 63 62 65 Pulse Rate [ From Monitor] Respiratory 16 16 16 Rate Blood Pressure 131/71 125/68 125/68 O2 Sat by Pulse 99 100 100 Oximetry 06/13/21 06/13/21 06/13/21 05:40 05:46 05:50 Temperature Pulse Rate 65 64 66 Pulse Rate [ From Monitor] Respiratory 16 16 16 Rate Blood Pressure 125/68 125/68 125/68 O2 Sat by Pulse 100 100 100 Oximetry 06/13/21 06/13/21 06/13/21 05:56 06:00 06:06 Temperature Pulse Rate 66 69 62 Pulse Rate [ From Monitor] Respiratory 16 16 16 Rate Blood Pressure 125/68 120/63 120/63 O2 Sat by Pulse 100 100 100 Oximetry 06/13/21 06/13/21 06/13/21 06:10 06:16 06:20 Temperature Pulse Rate 65 64 63 Pulse Rate [ From Monitor] Respiratory 16 16 16 Rate Blood Pressure 120/63 120/63 120/63 O2 Sat by Pulse 100 100 100 Oximetry 06/13/21 06/13/21 06/13/21 06:26 06:30 06:36 Temperature Pulse Rate 62 65 64 Pulse Rate [ From Monitor] Respiratory 16 16 16 Rate Blood Pressure 120/63 122/63 122/63 O2 Sat by Pulse 100 100 100 Oximetry 06/13/21 06/13/21 06/13/21 06:40 06:46 06:50 Temperature Pulse Rate 62 65 62 Pulse Rate [ From Monitor] Respiratory 16 16 16 Rate Blood Pressure 122/63 122/63 122/63 O2 Sat by Pulse 100 100 100 Oximetry 06/13/21 06/13/21 06/13/21 06:56 07:00 07:06 Temperature Pulse Rate 64 63 64 Pulse Rate [ From Monitor] Respiratory 16 16 16 Rate Blood Pressure 122/63 118/60 118/60 O2 Sat by Pulse 100 100 100 Oximetry 06/13/21 06/13/21 06/13/21 07:10 07:16 07:20 Temperature Pulse Rate 63 65 62 Pulse Rate [ From Monitor] Respiratory 16 16 16 Rate Blood Pressure 118/60 118/60 118/60 O2 Sat by Pulse 100 100 100 Oximetry 06/13/21 06/13/21 06/13/21 07:26 07:30 07:36 Temperature Pulse Rate 63 63 64 Pulse Rate [ From Monitor] Respiratory 16 16 16 Rate Blood Pressure 118/60 125/67 125/67 O2 Sat by Pulse 100 100 100 Oximetry 06/13/21 06/13/21 06/13/21 07:40 07:46 07:50 Temperature Pulse Rate 64 68 65 Pulse Rate [ From Monitor] Respiratory 16 16 16 Rate Blood Pressure 125/67 125/67 125/67 O2 Sat by Pulse 100 100 99 Oximetry 06/13/21 06/13/21 06/13/21 07:56 08:00 08:06 Temperature 100.6 F H Pulse Rate 66 72 84 Pulse Rate [ 72 From Monitor] Respiratory 16 16 16 Rate Blood Pressure 125/67 125/67 75/39 O2 Sat by Pulse 99 100 100 Oximetry 06/13/21 06/13/21 06/13/21 08:10 08:16 08:20 Temperature Pulse Rate 68 74 64 Pulse Rate [ From Monitor] Respiratory 16 16 16 Rate Blood Pressure 75/39 75/39 75/39 O2 Sat by Pulse 99 99 100 Oximetry 06/13/21 06/13/21 06/13/21 08:26 08:30 08:36 Temperature Pulse Rate 65 63 69 Pulse Rate [ From Monitor] Respiratory 16 16 16 Rate Blood Pressure 75/39 140/72 140/72 O2 Sat by Pulse 100 100 99 Oximetry 06/13/21 06/13/21 06/13/21 08:37 08:40 08:46 Temperature Pulse Rate 67 68 Pulse Rate [ From Monitor] Respiratory 14 14 Rate Blood Pressure 140/72 140/72 O2 Sat by Pulse 98 99 99 Oximetry 06/13/21 06/13/21 06/13/21 08:50 08:56 09:00 Temperature Pulse Rate 69 72 67 Pulse Rate [ From Monitor] Respiratory 14 14 14 Rate Blood Pressure 140/72 140/72 109/58 O2 Sat by Pulse 99 99 99 Oximetry 06/13/21 06/13/21 06/13/21 09:06 09:10 09:16 Temperature Pulse Rate 68 75 94 H Pulse Rate [ From Monitor] Respiratory 14 14 14 Rate Blood Pressure 109/58 109/58 109/58 O2 Sat by Pulse 98 98 98 Oximetry 06/13/21 06/13/21 06/13/21 09:20 09:26 09:30 Temperature Pulse Rate 72 67 64 Pulse Rate [ From Monitor] Respiratory 14 14 14 Rate Blood Pressure 109/58 109/58 97/49 O2 Sat by Pulse 98 98 99 Oximetry 06/13/21 06/13/21 06/13/21 09:36 09:40 09:46 Temperature Pulse Rate 84 84 90 Pulse Rate [ From Monitor] Respiratory 14 14 14 Rate Blood Pressure 97/49 97/49 97/49 O2 Sat by Pulse 97 98 98 Oximetry 06/13/21 06/13/21 06/13/21 09:50 09:56 10:00 Temperature 99.4 F Pulse Rate 82 66 66 Pulse Rate [ From Monitor] Respiratory 14 14 17 Rate Blood Pressure 97/49 97/49 77/42 O2 Sat by Pulse 97 98 97 Oximetry 0206/13/21 06/13/21 10:06 10:10 12:00 Temperature Pulse Rate 72 67 130 H Pulse Rate [ From Monitor] Respiratory 14 14 Rate Blood Pressure 77/42 181/93 O2 Sat by Pulse 99 99 92 Oximetry 06/13/21 06/13/21 06/13/21 12:45 12:50 12:56 Temperature Pulse Rate 117 H 120 H 108 H Pulse Rate [ From Monitor] Respiratory 14 14 Rate Blood Pressure 181/93 112/67 112/67 O2 Sat by Pulse 83 L Oximetry 06/13/21 06/13/21 06/13/21 13:00 13:06 13:10 Temperature Pulse Rate 133 H 145 H 153 H Pulse Rate [ From Monitor] Respiratory 14 14 12 Rate Blood Pressure 112/67 59/36 59/36 O2 Sat by Pulse Oximetry 06/13/21 06/13/21 13:16 13:20 Temperature Pulse Rate 137 H 134 H Pulse Rate [ From Monitor] Respiratory 16 16 Rate Blood Pressure 205/100 205/100 O2 Sat by Pulse 88 79 L Oximetry Constitutional: alert, appears uncomfortable Eyes: non-icteric ENT: other (patient with blood oozing from mouth but not able to open it voluntarily) Neck: other (covered in dressing, ET tube is anterior but I am not moving secondary to instability) Ascultation: Bilateral: clear Percussion: Bilateral: not dull Cardiovascular: regular rate and rhythm Gastrointestinal: normoactive bowel sounds, soft Extremities: no edema Neurologic: normal mental status CBC and BMP: 06/13/21 07:30 06/13/21 07:30 ABG, PT/INR, D-dimer: ABG ABG pH 7.039 pH Units (7.350-7.450) L* 06/13/21 12:04 POC ABG pCO2 25.6 mmHg (32.0-48.0) L 06/13/21 04:31 ABG pCO2 66.1 mm Hg 06/13/21 12:04 POC ABG pO2 138.8 mmHg (83-108) H 06/13/21 04:31 ABG pO2 63.1 mm Hg (80.0-90.0) L 06/13/21 12:04 POC ABG HCO3 21.4 06/13/21 04:31 ABG O2 Saturation 73.4 % (95.0-99.0) L 06/13/21 12:04 PT/INR, D-dimer PT 16.0 Sec. (12.2-14.9) H 06/12/21 17:00 INR 1.16 (0.87-1.13) H 06/12/21 17:00 Abnormal lab findings: Abnormal Labs 06/11/21 06/11/21 06/11/21 15:23 15:23 19:20 WBC 12.0 H RBC Hgb Hct MCV 72 L MCH 21 L RDW 17.5 H Plt Count Lymph % (Auto) 12.9 L [place] % (Auto) 8.6 H [place] # (Auto) 1.0 H Seg Neutrophils % 77.4 H Seg Neuts % (Manual) Lymphocytes % (Manual) Monocytes % (Manual) Seg Neutrophils # 9.3 H Seg Neutrophils # Man Lymphocytes # (Manual) Monocytes # (Manual) PT INR APTT ABG pH POC ABG pCO2 POC ABG pO2 ABG pO2 ABG HCO3 ABG O2 Saturation ABG Base Excess ABG Hemoglobin ABG Oxyhemoglobin Oxyhemoglobin Sodium Potassium Chloride Carbon Dioxide BUN Creatinine Glucose 144 H POC Glucose Calcium AST ALT Alkaline Phosphatase Total Protein Albumin Ur Specific [place] Crossmatch See Detail 06/11/21 06/11/21 06/11/21 19:29 19:29 23:21 WBC 15.8 H RBC Hgb 9.4 L Hct MCV 72 L MCH 22 L RDW 17.4 H Plt Count Lymph % (Auto) 9.2 L [place] % (Auto) [place] # (Auto) Seg Neutrophils % 89.0 H Seg Neuts % (Manual) Lymphocytes % (Manual) Monocytes % (Manual) Seg Neutrophils # 14.0 H Seg Neutrophils # Man Lymphocytes # (Manual) Monocytes # (Manual) PT 72.9 H INR 8.18 H* APTT 71.7 H* ABG pH POC ABG pCO2 POC ABG pO2 ABG pO2 ABG HCO3 ABG O2 Saturation ABG Base Excess ABG Hemoglobin ABG Oxyhemoglobin Oxyhemoglobin Sodium 149 H D Potassium Chloride 124.3 H Carbon Dioxide 8 L* D BUN Creatinine 0.3 L Glucose 628 H* POC Glucose Calcium 2.4 L* D AST ALT < 5 L Alkaline Phosphatase 19 L Total Protein 1.6 L D Albumin 0.8 L Ur Specific [place] Crossmatch 06/11/21 06/11/2122 23:21 23:22 23:42 WBC RBC Hgb Hct MCV MCH 27 L RDW 22.2 H Plt Count 131 L Lymph % (Auto) [place] % (Auto) [place] # (Auto) Seg Neutrophils % Seg Neuts % (Manual) Lymphocytes % (Manual) Monocytes % (Manual) Seg Neutrophils # Seg Neutrophils # Man Lymphocytes # (Manual) Monocytes # (Manual) PT 46.3 H INR 4.55 H APTT 54.8 H ABG pH POC ABG pCO2 POC ABG pO2 325.9 H ABG pO2 ABG HCO3 ABG O2 Saturation ABG Base Excess ABG Hemoglobin 8.0 L ABG Oxyhemoglobin 99.0 H Oxyhemoglobin Sodium Potassium Chloride Carbon Dioxide BUN Creatinine Glucose POC Glucose Calcium AST ALT Alkaline Phosphatase Total Protein Albumin Ur Specific [place] Crossmatch 06/12/21 06/12/21 06/12/21 01:45 01:45 01:45 WBC 21.6 H RBC 3.04 L Hgb 6.7 L D Hct 22.4 L D MCV 74 L MCH 22 L RDW 18.9 H Plt Count Lymph % (Auto) [place] % (Auto) [place] # (Auto) Seg Neutrophils % Seg Neuts % (Manual) 76.0 H Lymphocytes % (Manual) 2.0 L Monocytes % (Manual) 8.0 H Seg Neutrophils # Seg Neutrophils # Man 16.4 H Lymphocytes # (Manual) 0.4 L Monocytes # (Manual) 1.7 H PT 25.4 H INR 2.10 H APTT ABG pH POC ABG pCO2 POC ABG pO2 ABG pO2 ABG HCO3 ABG O2 Saturation ABG Base Excess ABG Hemoglobin ABG Oxyhemoglobin Oxyhemoglobin Sodium Potassium 5.6 H D Chloride Carbon Dioxide 20 L D BUN Creatinine Glucose 368 H POC Glucose Calcium 7.1 L D AST ALT Alkaline Phosphatase Total Protein 5.3 L D Albumin 3.1 L Ur Specific [place] Crossmatch 06/12/21 06/12/21 06/12/21 02:05 04:41 11:05 WBC 14.6 H RBC 3.52 L Hgb 8.5 L Hct 27.7 L MCV MCH 24 L RDW 20.9 H Plt Count Lymph % (Auto) [place] % (Auto) [place] # (Auto) Seg Neutrophils % Seg Neuts % (Manual) Lymphocytes % (Manual) Monocytes % (Manual) Seg Neutrophils # Seg Neutrophils # Man Lymphocytes # (Manual) Monocytes # (Manual) PT INR APTT ABG pH POC ABG pCO2 POC ABG pO2 224.6 H ABG pO2 ABG HCO3 ABG O2 Saturation ABG Base Excess ABG Hemoglobin 7.3 L ABG Oxyhemoglobin 98.7 H Oxyhemoglobin Sodium Potassium Chloride Carbon Dioxide BUN Creatinine Glucose POC Glucose 308 H Calcium AST ALT Alkaline Phosphatase Total Protein Albumin Ur Specific [place] Crossmatch 06/12/21 06/12/21 06/12/21 11:05 11:05 12:18 WBC RBC Hgb Hct MCV MCH RDW Plt Count Lymph % (Auto) [place] % (Auto) [place] # (Auto) Seg Neutrophils % Seg Neuts % (Manual) Lymphocytes % (Manual) Monocytes % (Manual) Seg Neutrophils # Seg Neutrophils # Man Lymphocytes # (Manual) Monocytes # (Manual) PT 16.8 H INR 1.23 H APTT ABG pH POC ABG pCO2 POC ABG pO2 ABG pO2 ABG HCO3 ABG O2 Saturation ABG Base Excess ABG Hemoglobin ABG Oxyhemoglobin Oxyhemoglobin Sodium Potassium Chloride Carbon Dioxide BUN 24 H Creatinine Glucose 324 H POC Glucose 281 H Calcium 7.5 L AST 70 H ALT 57 H Alkaline Phosphatase Total Protein 6.0 L Albumin 3.6 L Ur Specific [place] Crossmatch 06/12/21 06/12/21 06/12/21 17:00 17:00 17:00 WBC RBC Hgb 7.5 L Hct 24.0 L MCV MCH RDW Plt Count Lymph % (Auto) [place] % (Auto) [place] # (Auto) Seg Neutrophils % Seg Neuts % (Manual) Lymphocytes % (Manual) Monocytes % (Manual) Seg Neutrophils # Seg Neutrophils # Man Lymphocytes # (Manual) Monocytes # (Manual) PT 16.0 H INR 1.16 H APTT ABG pH POC ABG pCO2 POC ABG pO2 ABG pO2 ABG HCO3 ABG O2 Saturation ABG Base Excess ABG Hemoglobin ABG Oxyhemoglobin Oxyhemoglobin Sodium Potassium Chloride Carbon Dioxide BUN Creatinine Glucose POC Glucose Calcium AST ALT Alkaline Phosphatase Total Protein Albumin Ur Specific [place] 1.035 H Crossmatch 06/12/21 06/12/21 06/12/21 18:06 23:00 23:05 WBC RBC Hgb 7.6 L Hct 23.5 L MCV MCH RDW Plt Count Lymph % (Auto) [place] % (Auto) [place] # (Auto) Seg Neutrophils % Seg Neuts % (Manual) Lymphocytes % (Manual) Monocytes % (Manual) Seg Neutrophils # Seg Neutrophils # Man Lymphocytes # (Manual) Monocytes # (Manual) PT INR APTT ABG pH POC ABG pCO2 POC ABG pO2 ABG pO2 ABG HCO3 ABG O2 Saturation ABG Base Excess ABG Hemoglobin ABG Oxyhemoglobin Oxyhemoglobin Sodium Potassium Chloride Carbon Dioxide BUN Creatinine Glucose POC Glucose 257 H 300 H Calcium AST ALT Alkaline Phosphatase Total Protein Albumin Ur Specific [place] Crossmatch 06/13/21 06/13/21 06/13/21 04:31 05:19 07:30 WBC RBC Hgb 6.8 L Hct 21.7 L MCV MCH RDW Plt Count Lymph % (Auto) [place] % (Auto) [place] # (Auto) Seg Neutrophils % Seg Neuts % (Manual) Lymphocytes % (Manual) Monocytes % (Manual) Seg Neutrophils # Seg Neutrophils # Man Lymphocytes # (Manual) Monocytes # (Manual) PT INR APTT ABG pH 7.541 H POC ABG pCO2 25.6 L POC ABG pO2 138.8 H ABG pO2 ABG HCO3 ABG O2 Saturation ABG Base Excess ABG Hemoglobin 7.3 L ABG Oxyhemoglobin 98.1 H Oxyhemoglobin Sodium Potassium Chloride Carbon Dioxide BUN Creatinine Glucose POC Glucose 286 H Calcium AST ALT Alkaline Phosphatase Total Protein Albumin Ur Specific [place] Crossmatch 06/13/21 06/13/21 07:30 12:04 WBC RBC Hgb Hct MCV MCH RDW Plt Count Lymph % (Auto) [place] % (Auto) [place] # (Auto) Seg Neutrophils % Seg Neuts % (Manual) Lymphocytes % (Manual) Monocytes % (Manual) Seg Neutrophils # Seg Neutrophils # Man Lymphocytes # (Manual) Monocytes # (Manual) PT INR APTT ABG pH 7.039 L* POC ABG pCO2 POC ABG pO2 ABG pO2 63.1 L ABG HCO3 17.4 L ABG O2 Saturation 73.4 L ABG Base Excess -12.6 L ABG Hemoglobin 7.7 L ABG Oxyhemoglobin Oxyhemoglobin 71.8 L Sodium Potassium Chloride 108.9 H Carbon Dioxide BUN 28 H Creatinine Glucose 293 H POC Glucose Calcium 7.2 L AST 106 H ALT 92 H Alkaline Phosphatase Total Protein 5.6 L Albumin 3.3 L Ur Specific [place] Crossmatch
[2021-06-13 14:50] LABS: Mean Corpuscular HGB Conc 31 % (30-34); Mean Corpuscular Volume 82 fl (79-97); Platelet Count 184 K/mm3 (140-440); Red Blood Count 3.16 M/mm3 (3.65-5.03)
[2021-06-13 14:56] LABS: Red Cell Distribution Width 21.4 % (13.2-15.2)
[2021-06-13 15:00] LABS: INR 1.31 (0.87-1.13); Partial Thromboplastin Time 26.4 Sec. (24.2-36.6)
[2021-06-13 15:16] LABS: ABG Base Excess -7.1 mmol/L (-2.0-3.0); ABG HCO3 20.8 mmol/L (20.0-26.0); ABG Methemoglobin 0.6 % (0.0-1.5); ABG Oxygen Saturation 95.3 % (95.0-99.0); ABG PCO2 56.7 mm Hg; ABG PO2 88.4 mm Hg (80.0-90.0)
[2021-06-13 15:29] LABS: ABG PH 7.182 pH Units (7.350-7.450)
--- NOTE | 2021-06-13 15:54 | XRay Report ---
CHEST 1 VIEW 06/13/2021 3:18 PM INDICATION / CLINICAL INFORMATION: pneumo. COMPARISON: 06/13/2021 and 06/11/2021 FINDINGS/IMPRESSION: SUPPORT DEVICES: Endotracheal tube terminates 2.1 cm from the devin. Unchanged positioning of a righ t chest tube. HEART / MEDIASTINUM: Obscured by left lung opacity. LUNGS / PLEURA: The left lung appears very poorly aerated may represent near-complete collapse. Large left pleural effusion is not excluded. Increased density within the right pleural space, likely repr esenting hydropneumothorax. ADDITIONAL FINDINGS: Interval increase in right subcutaneous emphysema. Signer Name: Thomas Nicole DO Signed: 06/13/2021 3:49 PM Workstation Name: [id number]
[2021-06-13] MEDS ORDERED: SODIUM BICARB 8.4% 50 MEQ/50 ML SYRINGE IV SCH (16:00)
[2021-06-13] MEDS ORDERED: SODIUM CHLORIDE 0.9% IRR 1,000 ML BOTTLE IR ONE (16:00)
[2021-06-13 16:12] LABS: Calcium 6.8 mg/dL (8.4-10.2)
[2021-06-13] MEDS ORDERED: LIDOCAINE (1%) 10 MG/1 ML VIAL 20 ML MDV INFILTRATI NR (16:15)
[2021-06-13 16:29] LABS: Band Neutrophils # (Manual) 0.5 K/mm3; Basophils % (Manual) 0 % (0.0-1.8); Eosinophils % (Manual) 0 % (0.0-4.3); Total Cells Counted 100
[2021-06-13 16:30] LABS: Anisocytosis 1+; Hypochromasia 2+; Platelet Estimate Consistent w Auto; Toxic Granulation 2+
--- NOTE | 2021-06-13 17:30 | Progress Note ---
<KIT PATEL - Last Filed: 06/13/21 17:26> Assessment and Plan Assessment and plan: This is a 76-year-old female with HTN, Coumadin use, dental caries, PVD s/p stenting to right leg, DM, arthritis, depression, gout and ? Pulmonary hypertension admitted with Jeremiah's angina s/p emergent cric with bleeding, right sided pneumothorax, supratherapeutic INR, hypernatremia, hyperchloremia, severe metabolic acidosis, hyperglycemia and hypocalcemia Neuro: Sedated, h/o depression, arthritis -Sedated with versed, propofol, fentanyl gtt -RASS goal -3 to -4 -Bilateral wrist restraints in place for safety -Avoid delirium -Reorientation as needed -Maintain sleep-wake cycle Cardiac: Hypotension, h/o htn, PVD s/p stenting Right leg -Vasopressor support with Levophed and Fabian-Synephrine -Titrate as tolerated -MAP goal greater than 65 -Blood pressure monitoring per protocol -Pressure monitoring via A-line Respiratory: Acute hypoxic respiratory failure, right pneumothorax -CCM consulted, appreciate recommendations -S/p emergent cricothyroid with surgery with 8.00 ETT -A.m. vent settings: Assist-control rate 16, tidal volume 400, PEEP 6, FiO2 60% -See RT notes for titration -Decrease in FiO2 repeat ABG -A.m. ABG and CXR noted -Right chest tube replaced by surgery -CT to wall suction -Change to larger bore on 06/13 -Postop CXR shows possible hydropneumothorax on right side -Bronchoscopy planned -VAP bundle -SPO2 monitoring GI: Protein calorie malnutrition -24 hours +1343 -PPI -Hold BR in setting of no enteral access : KAPIL possibly secondary to vasomotor nephropathy metabolic acidosis -Strict intake and output -Renally dose medications -Avoid nephrotoxic medications -Daily weights -Consider nephrology consult if worsens ID: 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 dental caries -CT neck with contrast showed a significant right floor of mild swelling with extension into the submandibular and submental spaces, significant thickening and inflammation involving the right pharyngeal wall, with the parapharyngeal and retropharyngeal spaces at the level of the thyroid cartilage, epiglottis significantly swollen and so are the aryepiglottic folds resulting in significant airway narrowing at this level, no lymphadenopathy, symmetric submandibular and parathyroid glands, S few scattered caries but no periapical lucencies, nonspecific calcification along the right lateral oropharynx, no definite stone seen within the territory of the submandibular gland ducts, no suspicious rashes lesion -Infectious disease and general surgery consulted, appreciate recommendations -s/p cricothyroid ectomy -Will follow surgery to direction and treatment of injury -Per surgery may have mucosal injury -Intra-Op findings include post pharyngeal swelling and bruising -Solu-Medrol 125 every 8 -Antibiotic therapy with cefepime, Flagyl, vancomycin -COVID-19 PCR negative -f/u blood culture -Monitor WBC and temperature curve -s/p 5L normal saline bolus in ED Heme: Coagulopathy, supratherapeutic INR, acute blood loss anemiq, possible component of hemorrhagic shock -Patient is on Coumadin at home -S/p 5 FFP, 5 PRBC, vitamin K x3 -Trend CBC -Presented with H/H of 10.3/34.6 and decreased to 6.7/22.4 -1 unit of PRBC today -Serial H/H -INR 8.18-> 4.55-> 2.1-> 1.23-> 1.16-> 1.31 -Monitor INR -Transfuse hemoglobin less than 7 -Monitor for signs of bleeding -SCDs to BLE while in bed -Avoid chemical anticoagulation in setting of recent blood loss anemia Endo: h/o DM, gout -Avoid hypoglycemia -SSI -Accu-Cheks q. 6hr The high probability of a clinically significant, sudden or life threatening deterioration of the [multi] system(s) required my full and direct attention, intervention and personal management. The aggregate critical care time was [90] minutes. This time is in addition to time spent performing reported procedures but includes the following: [x] Data Review and interpretation [x] Patient assessment and monitoring of vital signs [x] Documentation [x] Medication orders and management Disposition Plan: icu Total Time Spent with Patient (Minutes): 90 History Interval history: This is a 76-year-old female with HTN, Coumadin use , dental caries, PVD s/p stenting right leg, DM, arthritis, depression, gout, and ? Pulmonary hypertension who presented to emergency department on 06/11 with complaints of pain to mandible area and throat and swelling. Work-up in the emergency department included CT scan of the head and neck which showed findings consistent with Jeremiah's angina and anesthesia was called for intubation. Anesthesia intubation attempts were unsuccessful and surgery was consulted for cricothyroidotomy which was unsuccessful in the emergency department and patient was taken to the OR for tracheostomy. Intubation procedure was complicated by development of pneumothorax and excessive bleeding. Patient given multiple FFP's and vitamin K several times who attempts to decrease INR. Lab work showed leukocytosis, supratherapeutic INR, hypernatremia, hyperchloremia, severe metabolic acidosis, hyperglycemia, hypocalcemia. Patient was admitted to the ospitalist service with consults to [facility], general surgery, infectious disease. Hospital course to date: 06/12: Patient received additional 2 units FFP and 1 unit PRBC and vitamin K today. Overnight critical care placed a femoral CVL. Patient sedated on fentanyl, propofol and Versed. Currently on Fabian-Synephrine and Levophed for blood pressure maintenance. Remains amatory support. Infectious disease consulted. Started on sliding scale insulin and recultured. COVID-19 PCR pending. Surgery at bedside to place chest tube. 06/13: Patient was taken back to the OR today for exchange cricothyroid to p ossible tracheostomy. Patient returned with ETT. Chest tube was changed to larger size in the OR. Patient was hypotensive, tachycardic, hypoxic in the OR and received hespan, albumin and an A-line. Upon arrival patient was increased to max dose Levophed for hypotension which has resolved. Titrating vasopressors as tolerated. Remains on sedation with 3 agents. Apparently patient was not ventilating her left lung Intra-Op. Noted to have subcu hematoma and trauma to postpharyngeal area. Questionable decrease cardiac wall motion noted in OR-> will order echocardiogram to further investigate. Patient received additional PRBC today. DIC panel resulted as normal. Patient BUN/creatinine did increase as well as noted to have lactic acidosis. May need IV bolus in addition to pressor use. Likely bronc with Pulmicort today as repeat CXR showed right possible pneumo hydrothorax Hospitalist Physical - Constitutional Vitals: Temp Pulse Resp BP Pulse Ox 97 F L 93 H 22 141/81 100 06/13/21 16:00 06/13/21 16:10 06/13/21 16:10 06/13/21 16:10 06/13/21 16:10 General appearance: Present: severe distress HEART Score - HEART Score Troponin: Troponin T < 0.010 ng/mL (0.00-0.029) 06/11/21 23:21 Results - Labs CBC & Chem 7: 06/13/21 Unknown 06/13/21 14:54 Labs: Laboratory Last Values WBC 22.5 K/mm3 (4.5-11.0) H 06/13/21 Unknown RBC 3.16 M/mm3 (3.65-5.03) L 06/13/21 Unknown Hgb 8.0 gm/dl (10.1-14.3) L 06/13/21 Unknown Hct 26.0 % (30.3-42.9) L 06/13/21 Unknown MCV 82 fl (79-97) 06/13/21 Unknown MCH 26 pg (28-32) L 06/13/21 Unknown MCHC 31 % (30-34) 06/13/21 Unknown RDW 21.4 % (13.2-15.2) H 06/13/21 Unknown Plt Count 184 K/mm3 (140-440) 06/13/21 Unknown Lymph % (Auto) 9.2 % (13.4-35.0) L 06/11/21 19:29 Summit % (Auto) 1.4 % (0.0-7.3) 06/11/21 19: Eos % (Auto) 0.2 % (0.0-4.3) 06/11/21 19:29 Baso % (Auto) 0.2 % (0.0-1.8) 06/11/21 19:29 Lymph # (Auto) 1.4 K/mm3 (1.2-5.4) 06/11/21 19:29 [place] # (Auto) 0.2 K/mm3 (0.0-0.8) 06/11/21 19:29 Eos # (Auto) 0.0 K/mm3 (0.0-0.4) 06/11/21 19: Baso # (Auto) 0.0 K/mm3 (0.0-0.1) 06/11/21 19:29 Add Manual Diff Complete 06/13/21 Unknown Total Counted 100 06/13/21 Unknown Seg Neutrophils % 89.0 % (40.0-70.0) H 06/11/21 19:29 Seg Neuts % (Manual) 88.0 % (40.0-70.0) H 06/13/21 Unknown Band Neutrophils % 2.0 % 06/13/21 Unknown Lymphocytes % (Manual) 4.0 % (13.4-35.0) L 06/13/21 Unknown Reactive Lymphs % (Man) 0 % 06/13/21 Unknown Monocytes % (Manual) 6.0 % (0.0-7.3) 06/13/21 Unknown Eosinophils % (Manual) 0 % (0.0-4.3) 06/13/21 Unknown Basophils % (Manual) 0 % (0.0-1.8) 06/13/21 Unknown Metamyelocytes % 0 % 06/13/21 Unknown Myelocytes % 0 % 06/13/21 Unknown Promyelocytes % 0 % 06/13/21 Unknown Blast Cells % 0 % 06/13/21 Unknown Nucleated RBC % Not Reportable 06/13/21 Unknown Seg Neutrophils # 14.0 K/mm3 (1.8-7.7) H 06/11/21 19:29 Seg Neutrophils # Man 19.8 K/mm3 (1.8-7.7) H 06/13/21 Unknown Band Neutrophils # 0.5 K/mm3 06/13/21 Unknown Lymphocytes # (Manual) 0.9 K/mm3 (1.2-5.4) L 06/13/21 Unknown Abs React Lymphs (Man) 0.0 K/mm3 06/13/21 Unknown Monocytes # (Manual) 1.4 K/mm3 (0.0-0.8) H 06/13/21 Unknown Eosinophils # (Manual) 0.0 K/mm3 (0.0-0.4) 06/13/21 Unknown Basophils # (Manual) 0.0 K/mm3 (0.0-0.1) 06/13/21 Unknown Metamyelocytes # 0.0 K/mm3 06/13/21 Unknown Myelocytes # 0.0 K/mm3 06/13/21 Unknown Promyelocytes # 0.0 K/mm3 06/13/21 Unknown Blast Cells # 0.0 K/mm3 06/13/21 Unknown WBC Morphology Not Reportable 06/13/21 Unknown Hypersegmented Neuts Not Reportable 06/13/21 Unknown Hyposegmented Neuts Not Reportable 06/13/21 Unknown Hypogranular Neuts Not Reportable 06/13/21 Unknown Smudge Cells Not Reportable 06/13/21 Unknown Toxic Granulation 2+ 06/13/21 Unknown Toxic Vacuolation Not Reportable 06/13/21 Unknown Dohle Bodies Not Reportable 06/13/21 Unknown Pelger-Huet Anomaly Not Reportable 06/13/21 Unknown Dennis Rods Not Reportable 06/13/21 Unknown Platelet Estimate Consistent w auto 06/13/21 Unknown Clumped Platelets Not Reportable 06/13/21 Unknown Plt Clumps, EDTA Not Reportable 06/13/21 Unknown Large Platelets Not Reportable 06/13/21 Unknown Giant Platelets Not Reportable 06/13/21 Unknown Platelet Satelliting Not Reportable 06/13/21 Unknown Plt Morphology Comment Not Reportable 06/13/21 Unknown RBC Morphology Not Reportable 06/13/21 Unknown Dimorphic RBCs Not Reportable 06/13/21 Unknown Polychromasia Few 06/13/21 Unknown Hypochromasia 2+ 06/13/21 Unknown Poikilocytosis Not Reportable 06/13/21 Unknown Anisocytosis 1+ 06/13/21 Unknown Microcytosis Not Reportable 06/13/21 Unknown Macrocytosis Not Reportable 06/13/21 Unknown Spherocytes Not Reportable 06/13/21 Unknown Pappenheimer Bodies Not Reportable 06/13/21 Unknown Sickle Cells Not Reportable 06/13/21 Unknown Target Cells Not Reportable 06/13/21 Unknown Tear Drop Cells Not Reportable 06/13/21 Unknown Ovalocytes Not Reportable 06/13/21 Unknown Stomatocytes Few 06/12/21 01:45 Helmet Cells Not Reportable 06/13/21 Unknown Salamanca-[place]oolstock Bodies Not Reportable 06/13/21 Unknown Norman Rings Not Reportable 06/13/21 Unknown Nelsy Cells Not Reportable 06/13/21 Unknown Bite Cells Not Reportable 06/13/21 Unknown Crenated Cell Not Reportable 06/13/21 Unknown Elliptocytes Not Reportable 06/13/21 Unknown Acanthocytes (Spur) Not Reportable 06/13/21 Unknown Rouleaux Not Reportable 06/13/21 Unknown Hemoglobin C Crystals Not Reportable 06/13/21 Unknown Schistocytes Not Reportable 06/13/21 Unknown Malaria parasites Not Reportable 06/13/21 Unknown Edin Bodies Not Reportable 06/13/21 Unknown Hem Pathologist Commnt No 06/13/21 Unknown PT 17.6 Sec. (12.2-14.9) H 06/13/21 Unknown INR 1.31 (0.87-1.13) H 06/13/21 Unknown APTT 26.4 Sec. (24.2-36.6) 06/13/21 Unknown Fibrinogen 546 mg/dl (211-480) H 06/13/21 Unknown D-Dimer 1244.63 ng/mlDDU (0-234) H 06/13/21 Unknown ABG pH 7.182 pH Units (7.350-7.450) L* 06/13/21 14:50 POC ABG pCO2 25.6 mmHg (32.0-48.0) L 06/13/21 04:31 ABG pCO2 56.7 mm Hg 06/13/21 14:50 POC ABG pO2 138.8 mmHg (83-108) H 06/13/21 04:31 ABG pO2 88.4 mm Hg (80.0-90.0) 06/13/21 14:50 POC ABG HCO3 21.4 06/13/21 04:31 ABG HCO3 20.8 mmol/L (20.0-26.0) 06/13/21 14:50 ABG O2 Saturation 95.3 % (95.0-99.0) 06/13/21 14:50 ABG O2 Content 9.2 (0.0-44) 06/13/21 14:50 POC ABG Base Excess -0.7 06/13/21 04:31 ABG Base Excess -7.1 mmol/L (-2.0-3.0) L 06/13/21 14:50 ABG Hemoglobin 6.9 gm/dl (12.0-16.0) L 06/13/21 14:50 ABG Oxyhemoglobin 98.1 (94-98) H 06/13/21 04:31 ABG Carboxyhemoglobin 1.3 % (0.0-5.0) 06/13/21 14:50 ABG Methemoglobin 0.6 % (0.0-1.5) 06/13/21 14:50 Oxyhemoglobin 93.5 % (95.0-99.0) L 06/13/21 14:50 Carboxyhemoglobin 0.8 (0.5-1.5) 06/13/21 04:31 FiO2 100 % 06/13/21 14:50 FiO2 % 40.0 06/13/21 04:31 Sodium 142 mmol/L (137-145) 06/13/21 14:54 Potassium 5.0 mmol/L (3.6-5.0) D 06/13/21 14:54 Chloride 107.3 mmol/L (98-107) H 06/13/21 14:54 Carbon Dioxide 19 mmol/L (22-30) L 06/13/21 14:54 Anion Gap 21 mmol/L 06/13/21 14:54 BUN 33 mg/dL (7-17) H 06/13/21 14:54 Creatinine 1.5 mg/dL (0.6-1.2) H 06/13/21 14:54 Estimated GFR 41 ml/min 06/13/21 14:54 BUN/Creatinine Ratio 22 % 06/13/21 14:54 Glucose 379 mg/dL (65-100) H 06/13/21 14:54 POC Glucose 286 mg/dL (70-105) H 06/13/21 05:19 Lactic Acid 5.30 mmol/L (0.7-2.0) H* 06/13/21 15:45 Calcium 6.8 mg/dL (8.4-10.2) L 06/13/21 14:54 Phosphorus 2.80 mg/dL (2.5-4.5) 06/13/21 07:30 Magnesium 1.80 mg/dL (1.7-2.3) 06/13/21 07:30 Total Bilirubin 0.30 mg/dL (0.1-1.2) 06/13/21 07:30 AST 106 units/L (5-40) H 06/13/21 07:30 ALT 92 units/L (7-56) H 06/13/21 07:30 Alkaline Phosphatase 60 units/L (35-129) 06/13/21 07:30 Troponin T < 0.010 ng/mL (0.00-0.029) 06/11/21 23:21 Total Protein 5.6 g/dL (6.3-8.2) L 06/13/21 07:30 Albumin 3.3 g/dL (3.9-5) L 06/13/21 07:30 Albumin/Globulin Ratio 1.4 % 06/13/21 07:30 Urine Color Yellow (Yellow) 06/12/21 17:00 Urine Turbidity Clear (Clear) 06/12/21 17:00 Urine pH 5.0 (5.0-7.0) 06/12/21 17:00 Ur Specific Zearing 1.035 (1.003-1.030) H 06/12/21 17:00 Urine Protein 30 mg/dl mg/dL (Negative) 06/12/21 17:00 Urine Glucose (UA) 50 mg/dL (Negative) 06/12/21 17:00 Urine Ketones Tr mg/dL (Negative) 06/12/21 17:00 Urine Blood Neg (Negative) 06/12/21 17:00 Urine Nitrite Neg (Negative) 06/12/21 17:00 Urine Bilirubin Neg (Negative) 06/12/21 17:00 Urine Urobilinogen < 2.0 mg/dL (<2.0) 06/12/21 17:00 Ur Leukocyte Esterase Neg (Negative) 06/12/21 17:00 Urine WBC (Auto) < 1.0 /HPF (0.0-6.0) 06/12/21 17:00 Urine RBC (Auto) < 1.0 /HPF (0.0-6.0) 06/12/21 17:00 Coronavirus (PCR) Negative (Negative) 06/12/21 09:50 Blood Type O POSITIVE 06/11/21 19:20 Antibody Screen Negative 06/11/21 19:20 Crossmatch See Detail 06/11/21 19:20 Microbiology: Microbiology 06/12/21 09:40 Peripheral/Venous Blood Culture - Preliminary NO GROWTH AFTER 24 HOURS 06/12/21 09:40 Peripheral/Venous Blood Culture - Preliminary NO GROWTH AFTER 24 HOURS Lujan/IV: Voiding Method Indwelling Catheter Active Medications - Current Medications Current Medications: Generic Name Dose Route Start Last Admin Trade Name Freq PRN Reason Stop Dose Admin Famotidine 20 mg 06/12/21 10:00 06/13/21 13:25 Famotidine 20 Mg/2 Ml Inj IV 20 mg BID JOLENE Administration Fentanyl 50 mcg 06/11/21 22:55 Fentanyl 100 Mcg/2 Ml Inj IV Q10MIN PRN ANALGESIA Hydromorphone HCl 0.5 mg 06/11/21 20:42 Hydromorphone 1 Mg/1 Ml Inj IV Q3H PRN Pain , Severe (7-10) Cefepime HCl 2 gm in 100 mls @ 200 mls/hr 06/11/21 22:00 06/13/21 15:16 Cefepime/Ns 2 Gm/100 Ml IV 200 mls/hr Q8H JOLENE Administration Protocol Midazolam DRIP Premix 100 mg in 100 mls @ 1 mls/hr 06/11/21 23:00 06/13/21 13:24 Midazolam/Ns 100 Mg/100 Ml IV 2 mg/hr TITR JOLENE 2 mls/hr Administration Protocol 1 MG/HR Fentanyl Citrate 2,000 mcg in 100 mls @ 5.466 mls/hr 06/11/21 23:00 06/13/21 10:00 Fentanyl Drip Premix IV 3 mcg/kg/hr TITR JOLENE 16.397 mls/hr Administration Protocol 1 MCG/KG/HR Phenylephrine HCl 100 mg/ 100 mls @ 3 mls/hr 06/11/21 23:45 06/12/21 15:38 Sodium Chloride IV 0 mcg/min TITR JOLENE 0 mls/hr Titration Protocol 50 MCG/MIN NORepinephrine/NS 8 MG-250 ML 8 mg in 250 mls @ 3.75 mls/hr 06/12/21 02:00 06/13/21 16:34 Norepinephrine/Ns 8 Mg-250 Ml (Double Conc) IV 2 mcg/min TITRATE JOLENE 3.75 mls/hr Titration Protocol 2 MCG/MIN Vancomycin HCl 2,000 mg/ 540 mls @ 250 mls/hr 06/12/21 12:00 06/13/21 13:24 Sodium Chloride IV 250 mls/hr Q12H JOLENE Administration Propofol 1,000 mg in 100 mls @ 3.279 mls/hr 06/12/21 03:00 06/13/21 16:32 Diprivan 10 Mg/Ml IV 20 mcg/kg/min TITR JOLENE 13.118 mls/hr Titration Protocol 5 MCG/KG/MIN Metronidazole 500 mg in 100 mls @ 100 mls/hr 06/13/21 06:00 06/13/21 13:25 Flagyl 500 Mg/100 Ml IV 100 mls/hr Q8HR JOLENE Administration Protocol Sodium Chloride 500 mls @ 0 mls/hr 06/13/21 09:04 Nacl 0.9% 500 Ml IV 06/13/21 23:59 ONCE JOLENE As Directed Insulin Human Lispro 0 unit 06/12/21 12:00 06/13/21 12:00 Insulin Lispro 100 Unit/Ml SUB-Q Not Given Q6HR JOLENE Protocol Lidocaine 10 ml 06/13/21 16:15 Lidocaine (1%) 10 Mg/1 Ml Vial 20 Ml Mdv INFILTRATI 06/13/21 23:59 PREOP NR Methylprednisolone Sodium Succinate 125 mg 06/11/21 22:00 06/13/21 13:25 Methylprednisolone Sod Succinate 125 Mg/2 Ml Inj IV 125 mg Q8HR JOLENE Administration Metoclopramide HCl 10 mg 06/11/21 20:42 Metoclopramide 10 Mg/2 Ml Inj IV Q6H PRN Nausea And Vomiting Ondansetron HCl 4 mg 06/11/21 20:42 Ondansetron 4 Mg/2 Ml Inj IV Q3H PRN Nausea And Vomiting Sodium Bicarbonate 100 meq 06/13/21 16:00 06/13/21 16:33 Sodium Bicarb 8.4% 50 Meq/50 Ml Syringe IV 06/13/21 19:00 100 meq ONCE@1600 JOLENE Administration Sodium Chloride 10 ml 06/11/21 22:00 06/13/21 10:00 Sodium Chloride 0.9% 10 Ml Flush Syringe IV 10 ml BID JOLENE Administration Sodium Chloride 10 ml 06/11/21 20:42 Sodium Chloride 0.9% 10 Ml Flush Syringe IV PRN PRN LINE FLUSH <EDILBERTO LUCIANO - Last Filed: 06/17/21 12:03> Assessment and Plan Assessment and plan: I saw and evaluated the patient. Discussed with the nurse practitioner and agree with their findings and plan as documented in this note. Hospitalist Physical - Constitutional Vitals: Temp Pulse Resp BP Pulse Ox 97.7 F 52 L 16 132/58 98 06/17/21 08:00 06/17/21 11:15 06/17/21 11:15 06/17/21 11:15 06/17/21 11:15 HEART Score - HEART Score Troponin: Troponin T < 0.010 ng/mL (0.00-0.029) 06/11/21 23:21 Results - Labs CBC & Chem 7: 06/17/21 05:30 06/17/21 05:30 Labs: Laboratory Last Values WBC 7.6 K/mm3 (4.5-11.0) 06/17/21 05:30 RBC 3.17 M/mm3 (3.65-5.03) L 06/17/21 05:30 Hgb 8.2 gm/dl (10.1-14.3) L 06/17/21 05:30 Hct 25.5 % (30.3-42.9) L 06/17/21 05:30 MCV 80 fl (79-97) 06/17/21 05:30 MCH 26 pg (28-32) L 06/17/21 05:30 MCHC 32 % (30-34) 06/17/21 05:30 RDW 21.2 % (13.2-15.2) H 06/17/21 05:30 Plt Count 128 K/mm3 (140-440) L 06/17/21 05:30 Lymph % (Auto) 9.2 % (13.4-35.0) L 06/11/21 19: [place] % (Auto) 1.4 % (0.0-7.3) 06/11/21 19: Eos % (Auto) 0.2 % (0.0-4.3) 06/11/21 19: Baso % (Auto) 0.2 % (0.0-1.8) 06/11/21 19:29 Lymph # (Auto) 1.4 K/mm3 (1.2-5.4) 06/11/21 19:29 [place] # (Auto) 0.2 K/mm3 (0.0-0.8) 06/11/21 19: Eos # (Auto) 0.0 K/mm3 (0.0-0.4) 06/11/21 19: Baso # (Auto) 0.0 K/mm3 (0.0-0.1) 06/11/21 19: Add Manual Diff Complete 06/13/21 Unknown Total Counted 100 06/13/21 Unknown Seg Neutrophils % 89.0 % (40.0-70.0) H 06/11/21 19: Seg Neuts % (Manual) 88.0 % (40.0-70.0) H 06/13/21 Unknown Band Neutrophils % 2.0 % 06/13/21 Unknown Lymphocytes % (Manual) 4.0 % (13.4-35.0) L 06/13/21 Unknown Reactive Lymphs % (Man) 0 % 06/13/21 Unknown Monocytes % (Manual) 6.0 % (0.0-7.3) 06/13/21 Unknown Eosinophils % (Manual) 0 % (0.0-4.3) 06/13/21 Unknown Basophils % (Manual) 0 % (0.0-1.8) 06/13/21 Unknown Metamyelocytes % 0 % 06/13/21 Unknown Myelocytes % 0 % 06/13/21 Unknown Promyelocytes % 0 % 06/13/21 Unknown Blast Cells % 0 % 06/13/21 Unknown Nucleated RBC % Not Reportable 06/13/21 Unknown Seg Neutrophils # 14.0 K/mm3 (1.8-7.7) H 06/11/21 19:29 Seg Neutrophils # Man 19.8 K/mm3 (1.8-7.7) H 06/13/21 Unknown Band Neutrophils # 0.5 K/mm3 06/13/21 Unknown Lymphocytes # (Manual) 0.9 K/mm3 (1.2-5.4) L 06/13/21 Unknown Abs React Lymphs (Man) 0.0 K/mm3 06/13/21 Unknown Monocytes # (Manual) 1.4 K/mm3 (0.0-0.8) H 06/13/21 Unknown Eosinophils # (Manual) 0.0 K/mm3 (0.0-0.4) 06/13/21 Unknown Basophils # (Manual) 0.0 K/mm3 (0.0-0.1) 06/13/21 Unknown Metamyelocytes # 0.0 K/mm3 06/13/21 Unknown Myelocytes # 0.0 K/mm3 06/13/21 Unknown Promyelocytes # 0.0 K/mm3 06/13/21 Unknown Blast Cells # 0.0 K/mm3 06/13/21 Unknown WBC Morphology Not Reportable 06/13/21 Unknown Hypersegmented Neuts Not Reportable 06/13/21 Unknown Hyposegmented Neuts Not Reportable 06/13/21 Unknown Hypogranular Neuts Not Reportable 06/13/21 Unknown Smudge Cells Not Reportable 06/13/21 Unknown Toxic Granulation 2+ 06/13/21 Unknown Toxic Vacuolation Not Reportable 06/13/21 Unknown Dohle Bodies Not Reportable 06/13/21 Unknown Pelger-Huet Anomaly Not Reportable 06/13/21 Unknown Dennis Rods Not Reportable 06/13/21 Unknown Platelet Estimate Consistent w auto 06/13/21 Unknown Clumped Platelets Not Reportable 06/13/21 Unknown Plt Clumps, EDTA Not Reportable 06/13/21 Unknown Large Platelets Not Reportable 06/13/21 Unknown Giant Platelets Not Reportable 06/13/21 Unknown Platelet Satelliting Not Reportable 06/13/21 Unknown Plt Morphology Comment Not Reportable 06/13/21 Unknown RBC Morphology Not Reportable 06/13/21 Unknown Dimorphic RBCs Not Reportable 06/13/21 Unknown Polychromasia Few 06/13/21 Unknown Hypochromasia 2+ 06/13/21 Unknown Poikilocytosis Not Reportable 06/13/21 Unknown Anisocytosis 1+ 06/13/21 Unknown Microcytosis Not Reportable 06/13/21 Unknown Macrocytosis Not Reportable 06/13/21 Unknown Spherocytes Not Reportable 06/13/21 Unknown Pappenheimer Bodies Not Reportable 06/13/21 Unknown Sickle Cells Not Reportable 06/13/21 Unknown Target Cells Not Reportable 06/13/21 Unknown Tear Drop Cells Not Reportable 06/13/21 Unknown Ovalocytes Not Reportable 06/13/21 Unknown Stomatocytes Few 06/12/21 01:45 Helmet Cells Not Reportable 06/13/21 Unknown [place]ool[place] Bodies Not Reportable 06/13/21 Unknown Norman Rings Not Reportable 06/13/21 Unknown Warren Cells Not Reportable 06/13/21 Unknown Bite Cells Not Reportable 06/13/21 Unknown Crenated Cell Not Reportable 06/13/21 Unknown Elliptocytes Not Reportable 06/13/21 Unknown Acanthocytes (Spur) Not Reportable 06/13/21 Unknown Rouleaux Not Reportable 06/13/21 Unknown Hemoglobin C Crystals Not Reportable 06/13/21 Unknown Schistocytes Not Reportable 06/13/21 Unknown Malaria parasites Not Reportable 06/13/21 Unknown Edin Bodies Not Reportable 06/13/21 Unknown Hem Pathologist Commnt No 06/13/21 Unknown PT 17.6 Sec. (12.2-14.9) H 06/13/21 Unknown INR 1.31 (0.87-1.13) H 06/13/21 Unknown APTT 26.4 Sec. (24.2-36.6) 06/13/21 Unknown Fibrinogen 546 mg/dl (211-480) H 06/13/21 Unknown D-Dimer 1244.63 ng/mlDDU (0-234) H 06/13/21 Unknown ABG pH 7.479 pH Units (7.350-7.450) H 06/17/21 04:50 POC ABG pCO2 25.6 mmHg (32.0-48.0) L 06/13/21 04:31 ABG pCO2 31.1 mm Hg 06/17/21 04:50 POC ABG pO2 138.8 mmHg (83-108) H 06/13/21 04:31 ABG pO2 143.1 mm Hg (80.0-90.0) H 06/17/21 04:50 POC ABG HCO3 21.4 06/13/21 04:31 ABG HCO3 22.6 mmol/L (20.0-26.0) 06/17/21 04:50 ABG O2 Saturation 98.9 % (95.0-99.0) 06/17/21 04:50 ABG O2 Content 14.0 (0.0-44) 06/17/21 04:50 POC ABG Base Excess -0.7 06/13/21 04:31 ABG Base Excess -0.4 mmol/L (-2.0-3.0) 06/17/21 04:50 ABG Hemoglobin 10.0 gm/dl (12.0-16.0) L 06/17/21 04:50 ABG Oxyhemoglobin 98.1 (94-98) H 06/13/21 04:31 ABG Carboxyhemoglobin 1.1 % (0.0-5.0) 06/17/21 04:50 ABG Methemoglobin 0.5 % (0.0-1.5) 06/17/21 04:50 Oxyhemoglobin 97.2 % (95.0-99.0) 06/17/21 04:50 Carboxyhemoglobin 0.8 (0.5-1.5) 06/13/21 04:31 FiO2 40 % 06/17/21 04:50 FiO2 % 40.0 06/13/21 04:31 Sodium 148 mmol/L (137-145) H 06/17/21 05:30 Potassium 3.7 mmol/L (3.6-5.0) 06/17/21 05:30 Chloride 113.7 mmol/L (98-107) H 06/17/21 05:30 Carbon Dioxide 20 mmol/L (22-30) L 06/17/21 05:30 Anion Gap 18 mmol/L 06/17/21 05:30 BUN 57 mg/dL (7-17) H 06/17/21 05:30 Creatinine 1.4 mg/dL (0.6-1.2) H 06/17/21 05:30 Estimated GFR 44 ml/min 06/17/21 05:30 BUN/Creatinine Ratio 41 % 06/17/21 05:30 Glucose 351 mg/dL (65-100) H 06/17/21 05:30 POC Glucose 305 mg/dL (70-105) H 06/17/21 11:49 Lactic Acid 5.30 mmol/L (0.7-2.0) H* 06/13/21 15:45 Calcium 8.0 mg/dL (8.4-10.2) L 06/17/21 05:30 Phosphorus 2.30 mg/dL (2.5-4.5) L 06/17/21 05:30 Magnesium 2.30 mg/dL (1.7-2.3) 06/17/21 05:30 Total Bilirubin 0.40 mg/dL (0.1-1.2) 06/15/21 03:56 AST 64 units/L (5-40) H 06/15/21 03:56 ALT 106 units/L (7-56) H 06/15/21 03:56 Alkaline Phosphatase 55 units/L (35-129) 06/15/21 03:56 Troponin T < 0.010 ng/mL (0.00-0.029) 06/11/21 23:21 C-Reactive Protein 3.30 mg/dL (0.00-1.30) H 06/16/21 04:32 Total Protein 5.1 g/dL (6.3-8.2) L 06/15/21 03:56 Albumin 2.9 g/dL (3.9-5) L 06/15/21 03:56 Albumin/Globulin Ratio 1.3 % 06/15/21 03:56 Triglycerides 189 mg/dL (2-149) H 06/14/21 06:15 Urine Color Yellow (Yellow) 06/12/21 17:00 Urine Turbidity Clear (Clear) 06/12/21 17:00 Urine pH 5.0 (5.0-7.0) 06/12/21 17:00 Ur Specific Zearing 1.035 (1.003-1.030) H 06/12/21 17:00 Urine Protein 30 mg/dl mg/dL (Negative) 06/12/21 17:00 Urine Glucose (UA) 50 mg/dL (Negative) 06/12/21 17:00 Urine Ketones Tr mg/dL (Negative) 06/12/21 17:00 Urine Blood Neg (Negative) 06/12/21 17:00 Urine Nitrite Neg (Negative) 06/12/21 17:00 Urine Bilirubin Neg (Negative) 06/12/21 17:00 Urine Urobilinogen < 2.0 mg/dL (<2.0) 06/12/21 17:00 Ur Leukocyte Esterase Neg (Negative) 06/12/21 17:00 Urine WBC (Auto) < 1.0 /HPF (0.0-6.0) 06/12/21 17:00 Urine RBC (Auto) < 1.0 /HPF (0.0-6.0) 06/12/21 17:00 Urine Creatinine 81.1 mg/dL (0.1-20.0) H 06/15/21 10:40 Urine Sodium 42 mmol/L 06/15/21 10:40 Coronavirus (PCR) Negative (Negative) 06/12/21 09:50 Blood Type O POSITIVE 06/11/21 19:20 Antibody Screen Negative 06/11/21 19:20 Crossmatch See Detail 06/11/21 19:20 Microbiology: Microbiology 06/12/21 09:40 Peripheral/Venous Blood Culture - Final NO GROWTH AFTER 5 DAYS 06/12/21 09:40 Peripheral/Venous Blood Culture - Final NO GROWTH AFTER 5 DAYS Lujan/IV: Voiding Method Indwelling Catheter Active Medications - Current Medications Current Medications: Generic Name Dose Route Start Last Admin Trade Name Freq PRN Reason Stop Dose Admin Famotidine 10 mg 06/15/21 22:00 06/16/21 21:02 Famotidine 20 Mg/2 Ml Inj IV 10 mg BID JOLENE Administration Fentanyl 50 mcg 06/11/21 22:55 06/15/21 16:50 Fentanyl 100 Mcg/2 Ml Inj IV 50 mcg Q10MIN PRN Administration ANALGESIA Hydralazine HCl 10 mg 06/16/21 08:00 06/17/21 05:29 Hydralazine 20 Mg/1 Ml Inj IV 10 mg Q4H PRN Administration Hypertension Hydromorphone HCl 0.5 mg 06/11/21 20:42 Hydromorphone 1 Mg/1 Ml Inj IV Q3H PRN Pain , Severe (7-10) Midazolam DRIP Premix 100 mg in 100 mls @ 1 mls/hr 06/11/21 23:00 06/15/21 17:34 Midazolam/Ns 100 Mg/100 Ml IV 0 mg/hr TITR JOLENE 0 mls/hr Titration Protocol 1 MG/HR Fentanyl Citrate 2,000 mcg in 100 mls @ 5.466 mls/hr 06/11/21 23:00 06/17/21 11:04 Fentanyl Drip Premix IV 4 mcg/kg/hr TITR JOLENE 21.863 mls/hr Titration Protocol 1 MCG/KG/HR Phenylephrine HCl 100 mg/ 100 mls @ 3 mls/hr 06/11/21 23:45 06/14/21 07:00 Sodium Chloride IV 0 mcg/min TITR JOLENE 0 mls/hr Titration Protocol 50 MCG/MIN NORepinephrine/NS 8 MG-250 ML 8 mg in 250 mls @ 3.75 mls/hr 06/12/21 02:00 06/14/21 05:56 Norepinephrine/Ns 8 Mg-250 Ml (Double Conc) IV 0 mcg/min TITRATE JOLENE 0 mls/hr Titration Protocol 2 MCG/MIN Propofol 1,000 mg in 100 mls @ 3.279 mls/hr 06/12/21 03:00 06/17/21 12:00 Diprivan 10 Mg/Ml IV 40 mcg/kg/min TITR JOLENE 26.236 mls/hr Titration Protocol 5 MCG/KG/MIN Piperacillin Sod/Tazobactam Sod 3.375 gm in 50 mls @ 100 mls/hr 06/15/21 12:00 06/17/21 05:30 Zosyn/Ns 3.375gm/50ml IV 100 mls/hr Q6HR JOLENE Administration Amino Acids/Electrolytes/Dextrose 1,999.92 mls @ 83.33 mls/hr 06/16/21 20:00 06/16/21 20:45 Tpn Adult IV 06/17/21 19:59 83.33 mls/hr DAILY@2000 JOLENE Administration Protocol Insulin Glargine 15 units 06/17/21 10:00 06/17/21 11:00 Insulin Glargine 100 Units/Ml SUB-Q 15 units BID JOLENE Administration Insulin Human Lispro 0 unit 06/12/21 12:00 06/17/21 05:32 Insulin Lispro 100 Unit/Ml SUB-Q 8 unit Q6HR JOLENE Administration Protocol Methylprednisolone Sodium Succinate 125 mg 06/11/21 22:00 06/17/21 05:28 Methylprednisolone Sod Succinate 125 Mg/2 Ml Inj IV 125 mg Q8HR JOELNE Administration Metoclopramide HCl 10 mg 06/11/21 20:42 Metoclopramide 10 Mg/2 Ml Inj IV Q6H PRN Nausea And Vomiting Ondansetron HCl 4 mg 06/11/21 20:42 Ondansetron 4 Mg/2 Ml Inj IV Q3H PRN Nausea And Vomiting Sodium Chloride 10 ml 06/11/21 22:00 06/16/21 21:05 Sodium Chloride 0.9% 10 Ml Flush Syringe IV 10 ml BID JOLENE Administration Sodium Chloride 10 ml 06/11/21 20:42 Sodium Chloride 0.9% 10 Ml Flush Syringe IV PRN PRN LINE FLUSH Nutrition/Malnutrition Assess - Dietary Evaluation Nutrition/Malnutrition Findings: Nutrition Notes Start: 06/16/21 12:10 Freq: Status: Active Protocol: Document 06/16/21 12:10 BRITNI (Rec: 06/16/21 12:35 [facility] [id number]) Nutrition Notes Need for Assessment generated from: MD Order Initial or Follow up Assessment Current Diagnosis Diabetes,Sepsis,Hypertension, Respiratory Failure Other Pertinent Diagnosis Jeremiah's angina, (R) pneumothorax, Coagulopathy, s/ p cardiac arrest, gout Current Diet No diet ordered Labs/Tests Na 148 K 3.3 Cl 115.1 CO2 - 21 BUN 54 Cr 1.6 BG 367 Ca 7.4 (adjusted 8.3) Pertinent Medications Clinimix ordered yesterday (4. 25% amino acids/10% dextrose at 84ml/hr), Lantus, Humalog, Solumedrol, Propofol at 3. 279ml/hr (provides 87 kcal) Height 5 ft 8 in Weight 109.316 kg [place] Body Weight (kg) 63.63 BMI 36.6 Weight Status Obese Subjective/Other Information RD consulted for TPN. Pt on vent support; difficult intubation requiring cricothyrotomy. Endotracheal tube was sutured in. MD does not want to insert OGT/NGT at this time given current situation with the neck. Pt will likely need a trach and PEG. PICC line ordered. Percent of energy/protein needs met: 52% energy 68% pro (from Clinimix) Burn Absent Trauma Absent Minimum of two criteria No #1 Nutrition Diagnosis Inadequate oral intake Etiology mech ventilation As Evidenced by Signs and Symptoms pt NPO Is patient on ventilator? Yes Is Patient Ambulatory and/or Out of Bed No REE-([facility]-confined to bed) [phone] Calculation Used for Recommendations 65-70% energy needs Additional Notes Energy needs: 1280-1379kcal/ day Pro needs 2g/kg IBW: 127g/day Fluid needs 1ml/kcal Nutrition Intervention Nutrition Support: Start PN at 83.33ml/hr: MVI, thiamine, 5% dextrose, 4.3% amino acids, 0mEq Na, 80mEq K, 0mEq Mg, 10mEq Ca, 20mmol Phos, 0% chloride/100% acetate . Osmolality: 765. Kcal 680 Protein (gm) 85 Carbohydrates (gm) 100 Fat (gm) 0 Fluid (mL) 2,000 Fiber (gm) 0 Goal #1 PN to meet nutrient needs as best possible Anticipated Discharge Needs: Unable to identify at this time Follow-Up By: 06/17/21 Additional Comments Labs in am: BMP, Mg, Phos F/U: vent status, trach/PEG placement, propofol, PICC line placement
--- NOTE | 2021-06-13 17:46 | Post Operative Note ---
Pre-op diagnosis: Ludewig angina with supraglottic compromise Post-op diagnosis: same Findings: Ludewig angina with supraglottic compromise Procedure: Examination of the oropharynx under anesthesia replacement of cricopharyngeal tube with a 7 mm outer diameter oral endotracheal tube, replacement of 20 Honduran chest tube with a 28 [place]uran chest tube into the right chest. Anesthesia: VERÓNICA Surgeon: LYLA BERNSTEIN Irrigation Tax Assessor Collector: JENNI GOLD Estimated blood loss: none Pathology: none Condition: critical Disposition: ICU
[2021-06-13 17:50] LABS: ABG Base Excess -1.7 mmol/L (-2.0-3.0); ABG HCO3 23.4 mmol/L (20.0-26.0); ABG Methemoglobin 0.6 % (0.0-1.5); ABG Oxygen Saturation 99.1 % (95.0-99.0); ABG PH 7.374 pH Units (7.350-7.450); ABG PO2 178.4 mm Hg (80.0-90.0)
--- NOTE | 2021-06-13 17:53 | Operative Report ---
Operative Report Operative Report: Date of procedure: 06/11/2021 Preop diagnosis: Ludwigg's angina with supraglottic airway obstruction Postop diagnosis: Same Procedure: Cricothyroidotomy with placement of a 8 mm outer diameter endotracheal tube. Surgeon: Dr. Patricia Hat And Cap Sewer: Dr. Saba Anesthesia: IV sedation Estimated blood loss: 200 cc Findings: This is a 76-year-old -Italian lady with supraglottic swelling and loss of airway. Patient had an attempt at a percutaneous tracheotomy with the development of a false passage. At the bedside the neck is prepped with Betadine and the initial transverse incision is extended for exploration. This incision is noted to be at the level of the thyroid cartilage. A vertical extension inferiorly is made. Blunt and sharp dissection is used to expose the cricothyroid membrane. A #10 scalpel was used to create an incision in the cricothyroid membrane. Hemostat is used to spread the opening and a #8 endotracheal tube was placed and the balloon inflated. The wound is packed with Surgicel and gauze for hemostasis. Patient was apparently also on Coumadin with an elevated INR of 8. The bleeding and oozing continued despite pressure. Pressure packing was placed and the patient is taken to the OR for more definitive control of the bleeding. Patient condition on end of the procedure is critical.
--- NOTE | 2021-06-13 17:58 | Operative Report ---
Operative Report Operative Report: Date of procedure: 06/11/2021 Preop diagnosis: Ludwigg's angina with supraglottic airway obstruction Postop diagnosis: Same Procedure: Exploration of the neck wound under anesthesia with packing of the wound and mass closure Surgeon: Dr. Patricia Screen Repairer Crusher: Dr. Mckinnon Anesthesia: IV sedation Estimated blood loss: 800 cc Findings: This is a 76-year-old -[place] lady with supraglottic swelling and loss of airway. Patient had an attempt at a percutaneous tracheotomy with the development of a false passage. An emergency cricothyroidotomy was performed in the emergency room. Patient's INR is 8. The patient is taken to the OR for better control of the airway and ambulating. In the OR under IV sedation. Suction is used with copious amounts irrigation to identify any surgical bleeding. Continuous ooze is noted from the upper end of the wound. No definitive bleeding site is found. Quick clot is used to pack the wound. 5 pieces of quick clot are used at this time. A 2-0 nylon suture was then used in a running fashion to close as much of the skin incision as possible allowing only the endotracheal tube to pass through the skin. Chest x-ray in the emergency room indicated the patient had a left-sided pneumothorax. A 10 Hungarian chest tube was placed. Good position is confirmed with a chest x-ray in the OR. Patient is then transported to the ICU for ventilatory support and correction of the elevated INR.
[2021-06-13] MEDS ORDERED: LACTATED RINGERS 2,000 ML IV ONE (19:38)
[2021-06-14] MEDS: INSULIN LISPRO 100 UNIT/ML SUB-Q SCH ×3 (00:31→15:23)
[2021-06-14] MEDS: VANCOMYCIN 2,000 MG in SODIUM CHLORIDE 0.9% 500 ML 500 ML IV SCH (00:31)
[2021-06-14] MEDS: fentaNYL DRIP Premix 2,000 MCG/100 ML BAG IV SCH ×4 (01:31→22:37)
[2021-06-14] MEDS: metroNIDAZOLE/NS 500 MG/100 ML 500 MG/100 ML BAG IV SCH (05:44)
[2021-06-14] MEDS: methylPREDNISolone Sod Succinate 125 MG/2 ML INJ IV SCH ×3 (05:45→21:06)
[2021-06-14 06:35] LABS: Hematocrit 23.2 % (30.3-42.9); Hemoglobin 7.2 gm/dl (10.1-14.3); Mean Corpuscular HGB Conc 31 % (30-34); Mean Corpuscular Volume 79 fl (79-97); Platelet Count 175 K/mm3 (140-440); Red Blood Count 2.93 M/mm3 (3.65-5.03)
[2021-06-14 06:36] LABS: Red Cell Distribution Width 21.2 % (13.2-15.2)
[2021-06-14] MEDS: CEFEPIME/NS 2 GM/100 ML 2 GM/100 ML BAG IV SCH (06:41)
[2021-06-14 07:10] LABS: Calcium 6.9 mg/dL (8.4-10.2)
[2021-06-14 09:38] LABS: ABG Base Excess -1.6 mmol/L (-2.0-3.0); ABG HCO3 22.6 mmol/L (20.0-26.0); ABG Methemoglobin 0.5 % (0.0-1.5); ABG Oxygen Saturation 99.2 % (95.0-99.0); ABG PCO2 35.2 mm Hg; ABG PH 7.426 pH Units (7.350-7.450)
--- NOTE | 2021-06-14 10:19 | Progress Note ---
Assessment and Plan Cultures: 06/12/2021 blood cultures: no growth A/P: 76-year-old female with diabetes, hypertension, gout was admitted to the hospital on 06/11/2021 with swelling of the submandibular region, tongue and difficulty breathing, labs also revealed severe coagulopathy due to Coumadin. CT scan of the neck showed findings concerning for Jeremiah's angina with significant airway narrowing: #Septic shock: Secondary to Jeremiah's angina secondary to dental caries, also probably component of hemorrhagic shock given blood loss anemia #Acute respiratory failure: on the vent #Right-sided pneumothorax: s/p chest tube. #Diabetes mellitus, uncontrolled #Coagulopathy: Secondary to Coumadin. #Acute blood loss anemia Recs: -cultures with no growth, will switch to IV Zosyn 4.5 gm q6 hrs -guarded prognosis Silvana Barros MD, FACP, [facility] O: [phone] F: [phone] Subjective Date of service: 06/14/21 Interval history: No fever. Remains on the vent, critically ill, on high settings. Chest tube +. Weaned off pressors. Objective - Exam Narrative Exam: Physical Exam: Constitutional: sedated, intubated, on the vent Head, Ears, Nose: Normocephalic, atraumatic. External ears, nose normal Eyes: Conjunctivae/corneas clear. No icterus. No ptosis. Oral: intubated Cardiovascular: S1, S2 + Respiratory: AE reduced, right-sided chest tube GI: Soft, bowel sounds + Musculoskeletal: No pedal edema, no cyanosis. Skin: No rash or abscess Hem/Lymphatic: No palpable cervical or supraclavicular nodes. No lymphangitis Psych: no agitation Neurological: sedated, intubated, on the vent, exam limited - Constitutional Vitals: Vital Signs Temp Pulse Resp BP Pulse Ox 96.7 F L 59 L 21 91/49 100 06/14/21 08:00 06/14/21 09:11 06/14/21 09:11 06/14/21 09:11 06/14/21 09:11 Temperature -Last 24 Hours Temperature 96.7 F Temperature 98.6 F Temperature 98.6 F Temperature 98.0 F Temperature 97 F Temperature 99.0 F - Labs CBC & Chem 7: 06/14/21 06:15 06/14/21 06:15 Labs: Abnormal lab results 06/11/21 06/13/21 06/13/21 Range/Units 19:20 12:04 14:50 WBC (4.5-11.0) K/mm3 RBC (3.65-5.03) M/mm3 Hgb (10.1-14.3) gm/dl Hct (30.3-42.9) % MCH (28-32) pg RDW (13.2-15.2) % Seg Neuts % (Manual) (40.0-70.0) % Lymphocytes % (Manual) (13.4-35.0) % Seg Neutrophils # Man (1.8-7.7) K/mm3 Lymphocytes # (Manual) (1.2-5.4) K/mm3 Monocytes # (Manual) (0.0-0.8) K/mm3 PT (12.2-14.9) Sec. INR (0.87-1.13) Fibrinogen (211-480) mg/dl D-Dimer (0-234) ng/mlDDU ABG pH 7.039 L* 7.182 L* (7.350-7.450) pH Units ABG pO2 63.1 L (80.0-90.0) mm Hg ABG HCO3 17.4 L (20.0-26.0) mmol/L ABG O2 Saturation 73.4 L (95.0-99.0) % ABG Base Excess -12.6 L -7.1 L (-2.0-3.0) mmol/L ABG Hemoglobin 7.7 L 6.9 L (12.0-16.0) gm/dl Oxyhemoglobin 71.8 L 93.5 L (95.0-99.0) % Sodium (137-145) mmol/L Chloride (98-107) mmol/L Carbon Dioxide (22-30) mmol/L BUN (7-17) mg/dL Creatinine (0.6-1.2) mg/dL Glucose (65-100) mg/dL POC Glucose (70-105) mg/dL Lactic Acid (0.7-2.0) mmol/L Calcium (8.4-10.2) mg/dL Triglycerides (2-149) mg/dL Crossmatch See Detail 06/13/21 06/13/21 06/13/21 Range/Units 14:54 15:45 17:34 WBC (4.5-11.0) K/mm3 RBC (3.65-5.03) M/mm3 Hgb (10.1-14.3) gm/dl Hct (30.3-42.9) % MCH (28-32) pg RDW (13.2-15.2) % Seg Neuts % (Manual) (40.0-70.0) % Lymphocytes % (Manual) (13.4-35.0) % Seg Neutrophils # Man (1.8-7.7) K/mm3 Lymphocytes # (Manual) (1.2-5.4) K/mm3 Monocytes # (Manual) (0.0-0.8) K/mm3 PT (12.2-14.9) Sec. INR (0.87-1.13) Fibrinogen (211-480) mg/dl D-Dimer (0-234) ng/mlDDU ABG pH (7.350-7.450) pH Units ABG pO2 178.4 H (80.0-90.0) mm Hg ABG HCO3 (20.0-26.0) mmol/L ABG O2 Saturation 99.1 H (95.0-99.0) % ABG Base Excess (-2.0-3.0) mmol/L ABG Hemoglobin 8.0 L (12.0-16.0) gm/dl Oxyhemoglobin (95.0-99.0) % Sodium (137-145) mmol/L Chloride 107.3 H (98-107) mmol/L Carbon Dioxide 19 L (22-30) mmol/L BUN 33 H (7-17) mg/dL Creatinine 1.5 H (0.6-1.2) mg/dL Glucose 379 H (65-100) mg/dL POC Glucose (70-105) mg/dL Lactic Acid 5.30 H* (0.7-2.0) mmol/L Calcium 6.8 L (8.4-10.2) mg/dL Triglycerides (2-149) mg/dL Crossmatch 06/13/21 06/13/21 06/13/21 Range/Units 17:40 23:29 Unknown WBC 22.5 H (4.5-11.0) K/mm3 RBC 3.16 L (3.65-5.03) M/mm3 Hgb 8.0 L (10.1-14.3) gm/dl Hct 26.0 L (30.3-42.9) % MCH 26 L (28-32) pg RDW 21.4 H (13.2-15.2) % Seg Neuts % (Manual) 88.0 H (40.0-70.0) % Lymphocytes % (Manual) 4.0 L (13.4-35.0) % Seg Neutrophils # Man 19.8 H (1.8-7.7) K/mm3 Lymphocytes # (Manual) 0.9 L (1.2-5.4) K/mm3 Monocytes # (Manual) 1.4 H (0.0-0.8) K/mm3 PT (12.2-14.9) Sec. INR (0.87-1.13) Fibrinogen (211-480) mg/dl D-Dimer (0-234) ng/mlDDU ABG pH (7.350-7.450) pH Units ABG pO2 (80.0-90.0) mm Hg ABG HCO3 (20.0-26.0) mmol/L ABG O2 Saturation (95.0-99.0) % ABG Base Excess (-2.0-3.0) mmol/L ABG Hemoglobin (12.0-16.0) gm/dl Oxyhemoglobin (95.0-99.0) % Sodium (137-145) mmol/L Chloride (98-107) mmol/L Carbon Dioxide (22-30) mmol/L BUN (7-17) mg/dL Creatinine (0.6-1.2) mg/dL Glucose (65-100) mg/dL POC Glucose 294 H 288 H (70-105) mg/dL Lactic Acid (0.7-2.0) mmol/L Calcium (8.4-10.2) mg/dL Triglycerides (2-149) mg/dL Crossmatch 06/13/21 06/14/21 06/14/21 Range/Units Unknown 05:39 06:15 WBC (4.5-11.0) K/mm3 RBC 2.93 L (3.65-5.03) M/mm3 Hgb 7.2 L (10.1-14.3) gm/dl Hct 23.2 L (30.3-42.9) % MCH 25 L (28-32) pg RDW 21.2 H (13.2-15.2) % Seg Neuts % (Manual) (40.0-70.0) % Lymphocytes % (Manual) (13.4-35.0) % Seg Neutrophils # Man (1.8-7.7) K/mm3 Lymphocytes # (Manual) (1.2-5.4) K/mm3 Monocytes # (Manual) (0.0-0.8) K/mm3 PT 17.6 H (12.2-14.9) Sec. INR 1.31 H (0.87-1.13) Fibrinogen 546 H (211-480) mg/dl D-Dimer 1244.63 H (0-234) ng/mlDDU ABG pH (7.350-7.450) pH Units ABG pO2 (80.0-90.0) mm Hg ABG HCO3 (20.0-26.0) mmol/L ABG O2 Saturation (95.0-99.0) % ABG Base Excess (-2.0-3.0) mmol/L ABG Hemoglobin (12.0-16.0) gm/dl Oxyhemoglobin (95.0-99.0) % Sodium (137-145) mmol/L Chloride (98-107) mmol/L Carbon Dioxide (22-30) mmol/L BUN (7-17) mg/dL Creatinine (0.6-1.2) mg/dL Glucose (65-100) mg/dL POC Glucose 246 H (70-105) mg/dL Lactic Acid (0.7-2.0) mmol/L Calcium (8.4-10.2) mg/dL Triglycerides (2-149) mg/dL Crossmatch 06/14/21 06/14/21 06/14/21 Range/Units 06:15 06:15 09:13 WBC (4.5-11.0) K/mm3 RBC (3.65-5.03) M/mm3 Hgb (10.1-14.3) gm/dl Hct (30.3-42.9) % MCH (28-32) pg RDW (13.2-15.2) % Seg Neuts % (Manual) (40.0-70.0) % Lymphocytes % (Manual) (13.4-35.0) % Seg Neutrophils # Man (1.8-7.7) K/mm3 Lymphocytes # (Manual) (1.2-5.4) K/mm3 Monocytes # (Manual) (0.0-0.8) K/mm3 PT (12.2-14.9) Sec. INR (0.87-1.13) Fibrinogen (211-480) mg/dl D-Dimer (0-234) ng/mlDDU ABG pH (7.350-7.450) pH Units ABG pO2 183.0 H (80.0-90.0) mm Hg ABG HCO3 (20.0-26.0) mmol/L ABG O2 Saturation 99.2 H (95.0-99.0) % ABG Base Excess (-2.0-3.0) mmol/L ABG Hemoglobin 6.6 L (12.0-16.0) gm/dl Oxyhemoglobin (95.0-99.0) % Sodium 147 H (137-145) mmol/L Chloride 112.5 H (98-107) mmol/L Carbon Dioxide 21 L (22-30) mmol/L BUN 36 H (7-17) mg/dL Creatinine 1.4 H (0.6-1.2) mg/dL Glucose 281 H (65-100) mg/dL POC Glucose (70-105) mg/dL Lactic Acid (0.7-2.0) mmol/L Calcium 6.9 L (8.4-10.2) mg/dL Triglycerides 189 H (2-149) mg/dL Crossmatch
[2021-06-14] MEDS: FAMOTIDINE 20 MG/2 ML INJ IV SCH ×2 (10:39→21:06)
[2021-06-14] MEDS ORDERED: WATER FOR INJ Sterile (PF) 10 ML ONE (11:37)
[2021-06-14 11:38] LABS: Hematocrit 22.3 % (30.3-42.9); Hemoglobin 7.1 gm/dl (10.1-14.3)
--- NOTE | 2021-06-14 12:59 | Progress Note ---
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 06/14/21: Will discuss with surgery future plans. They have ordered steroids to help with inflammation and abx continue. All others appears stable and no acute evidence of bleeding at this time. Follow up surgery recs if any new ones. Guarded prognosis. 06/13/21: Patient to back to OR today. BLood transfusion. Will send DIC panel and may need to given cryo if over 6 units of PRBC's given. Patient will likely need trach and peg as we need to address nutrition. Chest tube placed, large bore now. Patient now with right sided effusion. Hemothorax???. Will continue to monitor output. Needs picc line as femoral should come out soon. Continue pressors. Continue sedation for pain control and comfort. Guarded prognosis. Surgery comfortable with neck and current situation so they have not request transfer. 1. Placed right femoral central line. pressors can run through this. 2. Repeat chemistry stat given bicarb of 8 and blood sugar of greater than 600. Ordering FSBS now. Earlier bicarb was 25. If accurate will need bicarb drip and vasopressin but not sure as pH on blood gas was normal done around the same time. 3. Coagulopathy is improving. INR down to 4.55 and PTT and pT improving. Will continue to give FFP. Ordered more vitamin K. H/H is stable but patient is oozing from neck and mouth. 4. Vasopressor for blood pressure. Need to keep map 65 and greater 5. Lujan is needed for accurate I/O 6. Surgery called by [facility] about current CT situation. They state they will reassess in the am. I have reviewed the images myself. If I can position the patient safely without compromising the airway after adequate sedation, may consider placing chest tube now as INR is better and FFP is hanging. Patient is morbidly obese so shits could move the ET tube so if not safe, will wait until surgery comes in the morning. 7. Would not attempt to pass OG or NG tube given current situation in neck 8. Will discuss with surgery tomorrow but I feel this patient should be transferred to a tertiary care facility with ENT as we do not have that service here. CCT 31 minutes. Subjective Date of service: 06/14/21 Interval history: No acute events. Bronched last night and saw blood clot in left mainstem. Did not try to remove. Sats stable and good abg. Per nursing surgery to come back to remove some packing and change dressing on neck. Objective Vital Signs - 12hr 06/14/21 06/14/21 06/14/21 01:00 01:05 01:11 Temperature Pulse Rate 55 L 54 L 59 L Pulse Rate [ From Monitor] Respiratory Rate Blood Pressure 134/74 134/74 134/74 O2 Sat by Pulse 100 100 100 Oximetry 06/14/21 06/14/21 06/14/21 01:15 01:21 01:25 Temperature Pulse Rate 55 L 55 L 57 L Pulse Rate [ From Monitor] Respiratory Rate Blood Pressure 134/74 134/74 134/74 O2 Sat by Pulse 100 100 100 Oximetry 06/14/21 06/14/21 06/14/21 01:30 01:35 01:41 Temperature Pulse Rate 59 L 55 L 54 L Pulse Rate [ From Monitor] Respiratory Rate Blood Pressure 142/75 142/75 142/75 O2 Sat by Pulse 100 100 100 Oximetry 06/14/21 06/14/21 06/14/21 01:45 01:51 01:55 Temperature Pulse Rate 58 L 60 55 L Pulse Rate [ From Monitor] Respiratory Rate Blood Pressure 142/75 142/75 142/75 O2 Sat by Pulse 100 100 100 Oximetry 06/14/21 06/14/21 06/14/21 02:00 02:05 02:11 Temperature Pulse Rate 54 L 54 L 53 L Pulse Rate [ From Monitor] Respiratory Rate Blood Pressure 134/74 134/74 134/74 O2 Sat by Pulse 100 100 100 Oximetry 06/14/21 06/14/21 06/14/21 02:15 02:21 02:25 Temperature Pulse Rate 55 L 53 L 52 L Pulse Rate [ From Monitor] Respiratory Rate Blood Pressure 134/74 134/74 134/74 O2 Sat by Pulse 100 100 100 Oximetry 06/14/21 06/14/21 06/14/21 02:30 02:35 02:41 Temperature Pulse Rate 53 L 52 L 56 L Pulse Rate [ From Monitor] Respiratory Rate Blood Pressure 138/73 138/73 138/73 O2 Sat by Pulse 100 100 100 Oximetry 06/14/21 06/14/21 06/14/21 02:45 02:51 02:55 Temperature Pulse Rate 54 L 57 L 58 L Pulse Rate [ From Monitor] Respiratory Rate Blood Pressure 138/73 138/73 138/73 O2 Sat by Pulse 100 100 100 Oximetry 06/14/21 06/14/21 06/14/21 03:00 03:05 03:11 Temperature Pulse Rate 57 L 54 L 57 L Pulse Rate [ From Monitor] Respiratory Rate Blood Pressure 121/67 121/67 121/67 O2 Sat by Pulse 100 100 100 Oximetry 06/14/21 06/14/21 06/14/21 03:15 03:21 03:25 Temperature Pulse Rate 55 L 54 L 54 L Pulse Rate [ From Monitor] Respiratory Rate Blood Pressure 121/67 121/67 121/67 O2 Sat by Pulse 100 100 100 Oximetry 06/14/21 06/14/21 06/14/21 03:30 03:35 03:41 Temperature Pulse Rate 56 L 56 L 56 L Pulse Rate [ From Monitor] Respiratory Rate Blood Pressure 121/70 121/70 121/70 O2 Sat by Pulse 100 100 100 Oximetry 06/14/21 06/14/21 06/14/21 03:45 03:50 03:51 Temperature Pulse Rate 56 L 56 L 58 L Pulse Rate [ From Monitor] Respiratory Rate Blood Pressure 121/70 121/70 121/70 O2 Sat by Pulse 100 100 100 Oximetry 06/14/21 06/14/21 06/14/21 03:55 04:00 04:05 Temperature 98.6 F Pulse Rate 57 L 58 L 57 L Pulse Rate [ 53 L From Monitor] Respiratory Rate Blood Pressure 121/70 127/66 127/66 O2 Sat by Pulse 100 100 100 Oximetry 06/14/21 06/14/21 06/14/21 04:11 04:15 04:21 Temperature Pulse Rate 55 L 58 L 62 Pulse Rate [ From Monitor] Respiratory Rate Blood Pressure 127/66 127/66 127/66 O2 Sat by Pulse 100 100 100 Oximetry 06/14/21 06/14/21 06/14/21 04:25 04:30 04:35 Temperature Pulse Rate 55 L 52 L 53 L Pulse Rate [ From Monitor] Respiratory Rate Blood Pressure 127/66 126/67 126/67 O2 Sat by Pulse 100 100 100 Oximetry 06/14/21 06/14/21 06/14/21 04:41 04:45 04:51 Temperature Pulse Rate 55 L 60 59 L Pulse Rate [ From Monitor] Respiratory Rate Blood Pressure 126/67 126/67 126/67 O2 Sat by Pulse 100 100 100 Oximetry 06/14/21 06/14/21 06/14/21 04:55 05:00 05:05 Temperature Pulse Rate 56 L 58 L 53 L Pulse Rate [ From Monitor] Respiratory Rate Blood Pressure 126/67 119/64 119/64 O2 Sat by Pulse 100 100 100 Oximetry 06/14/21 06/14/21 06/14/21 05:11 05:15 05:21 Temperature Pulse Rate 55 L 55 L 55 L Pulse Rate [ From Monitor] Respiratory Rate Blood Pressure 119/64 119/64 119/64 O2 Sat by Pulse 100 100 100 Oximetry 06/14/21 06/14/21 06/14/21 05:25 05:30 05:35 Temperature Pulse Rate 53 L 58 L 57 L Pulse Rate [ From Monitor] Respiratory Rate Blood Pressure 119/64 116/61 116/61 O2 Sat by Pulse 100 100 100 Oximetry 06/14/21 06/14/21 06/14/21 05:41 05:45 05:51 Temperature Pulse Rate 59 L 60 60 Pulse Rate [ From Monitor] Respiratory Rate Blood Pressure 116/61 116/61 116/61 O2 Sat by Pulse 100 100 100 Oximetry 06/14/21 06/14/21 06/14/21 05:55 06:01 06:05 Temperature Pulse Rate 63 61 60 Pulse Rate [ From Monitor] Respiratory Rate Blood Pressure 116/61 95/49 95/49 O2 Sat by Pulse 100 100 100 Oximetry 06/14/21 06/14/21 06/14/21 06:11 06:15 06:21 Temperature Pulse Rate 59 L 59 L 79 Pulse Rate [ From Monitor] Respiratory 24 Rate Blood Pressure 95/49 95/49 95/49 O2 Sat by Pulse 100 100 100 Oximetry 06/14/21 06/14/21 06/14/21 06:25 06:30 06:35 Temperature Pulse Rate 74 61 61 Pulse Rate [ From Monitor] Respiratory 11 L 22 22 Rate Blood Pressure 95/49 99/53 99/53 O2 Sat by Pulse 100 100 100 Oximetry 06/14/21 06/14/21 06/14/21 06:41 06:45 06:51 Temperature Pulse Rate 60 61 59 L Pulse Rate [ From Monitor] Respiratory 21 22 22 Rate Blood Pressure 99/53 99/53 99/53 O2 Sat by Pulse 100 100 100 Oximetry 06/14/21 06/14/21 06/14/21 06:55 07:00 07:05 Temperature Pulse Rate 58 L 72 58 L Pulse Rate [ From Monitor] Respiratory 22 15 22 Rate Blood Pressure 99/53 93/54 93/54 O2 Sat by Pulse 100 100 100 Oximetry 06/14/21 06/14/21 06/14/21 07:11 07:15 07:21 Temperature Pulse Rate 59 L 58 L 56 L Pulse Rate [ From Monitor] Respiratory 22 23 Rate Blood Pressure 93/54 93/54 93/54 O2 Sat by Pulse 100 100 100 Oximetry 06/14/21 06/14/21 06/14/21 07:25 07:30 07:35 Temperature Pulse Rate 58 L 59 L 75 Pulse Rate [ From Monitor] Respiratory 22 22 22 Rate Blood Pressure 93/54 97/53 97/53 O2 Sat by Pulse 100 100 100 Oximetry 06/14/21 06/14/21 06/14/21 07:41 07:45 07:51 Temperature Pulse Rate 58 L 58 L 58 L Pulse Rate [ From Monitor] Respiratory 22 22 22 Rate Blood Pressure 97/53 97/53 97/53 O2 Sat by Pulse 100 100 100 Oximetry 06/14/21 06/14/21 06/14/21 07:55 08:00 08:05 Temperature 96.7 F L Pulse Rate 58 L 59 L 56 L Pulse Rate [ 58 L From Monitor] Respiratory 22 22 Rate Blood Pressure 97/53 95/52 95/52 O2 Sat by Pulse 100 100 100 Oximetry 06/14/21 06/14/21 06/14/21 08:11 08:15 08:21 Temperature Pulse Rate 59 L 65 58 L Pulse Rate [ From Monitor] Respiratory 22 19 22 Rate Blood Pressure 95/52 95/52 95/52 O2 Sat by Pulse 100 100 100 Oximetry 06/14/21 06/14/21 06/14/21 08:25 08:30 08:35 Temperature Pulse Rate 58 L 56 L 57 L Pulse Rate [ From Monitor] Respiratory 21 22 Rate Blood Pressure 95/52 95/55 95/55 O2 Sat by Pulse 100 100 100 Oximetry 06/14/21 06/14/21 06/14/21 08:41 08:45 08:51 Temperature Pulse Rate 59 L 59 L 58 L Pulse Rate [ From Monitor] Respiratory 22 Rate Blood Pressure 95/55 95/55 95/55 O2 Sat by Pulse 100 100 100 Oximetry 06/14/21 06/14/21 06/14/21 08:55 09:00 09:05 Temperature Pulse Rate 57 L 56 L 58 L Pulse Rate [ From Monitor] Respiratory 17 22 Rate Blood Pressure 95/55 91/49 91/49 O2 Sat by Pulse 100 100 100 Oximetry 06/14/21 06/14/21 06/14/21 09:11 09:15 09:21 Temperature Pulse Rate 59 L 60 60 Pulse Rate [ From Monitor] Respiratory 22 Rate Blood Pressure 91/49 91/49 91/49 O2 Sat by Pulse 100 100 100 Oximetry 06/14/21 06/14/21 06/14/21 09:25 09:30 09:35 Temperature Pulse Rate 61 61 57 L Pulse Rate [ From Monitor] Respiratory 22 Rate Blood Pressure 91/49 93/54 93/54 O2 Sat by Pulse 100 100 100 Oximetry 06/14/21 06/14/21 06/14/21 09:41 09:45 09:51 Temperature Pulse Rate 65 57 L 56 L Pulse Rate [ From Monitor] Respiratory 22 Rate Blood Pressure 93/54 93/54 93/54 O2 Sat by Pulse 100 100 100 Oximetry 06/14/21 06/14/21 06/14/21 09:55 10:00 10:05 Temperature Pulse Rate 57 L 55 L 57 L Pulse Rate [ From Monitor] Respiratory 22 Rate Blood Pressure 93/54 90/50 90/50 O2 Sat by Pulse 100 100 100 Oximetry 06/14/21 06/14/21 10:11 10:15 Temperature Pulse Rate 57 L 56 L Pulse Rate [ From Monitor] Respiratory 22 Rate Blood Pressure 90/50 90/50 O2 Sat by Pulse 100 100 Oximetry Constitutional: alert, appears uncomfortable Eyes: non-icteric ENT: other (patient with blood oozing from mouth but not able to open it voluntarily) Neck: other (covered in dressing, ET tube is anterior but I am not moving se condary to instability) Ascultation: Bilateral: clear Percussion: Bilateral: not dull Cardiovascular: regular rate and rhythm Gastrointestinal: normoactive bowel sounds, soft Extremities: no edema Neurologic: normal mental status CBC and BMP: 06/15/21 Unknown 06/15/21 03:56 ABG, PT/INR, D-dimer: ABG ABG pH 7.426 pH Units (7.350-7.450) 06/14/21 09:13 POC ABG pCO2 25.6 mmHg (32.0-48.0) L 06/13/21 04:31 ABG pCO2 35.2 mm Hg 06/14/21 09:13 POC ABG pO2 138.8 mmHg (83-108) H 06/13/21 04:31 ABG pO2 183.0 mm Hg (80.0-90.0) H 06/14/21 09:13 POC ABG HCO3 21.4 06/13/21 04:31 ABG O2 Saturation 99.2 % (95.0-99.0) H 06/14/21 09:13 PT/INR, D-dimer PT 17.6 Sec. (12.2-14.9) H 06/13/21 Unknown INR 1.31 (0.87-1.13) H 06/13/21 Unknown D-Dimer 1244.63 ng/mlDDU (0-234) H 06/13/21 Unknown Abnormal lab findings: Abnormal Labs 06/11/21 06/11/21 06/11/21 15:23 15:23 19:20 WBC 12.0 H RBC Hgb Hct MCV 72 L MCH 21 L RDW 17.5 H Plt Count Lymph % (Auto) 12.9 L [place] % (Auto) 8.6 H [place] # (Auto) 1.0 H Seg Neutrophils % 77.4 H Seg Neuts % (Manual) Lymphocytes % (Manual) Monocytes % (Manual) Seg Neutrophils # 9.3 H Seg Neutrophils # Man Lymphocytes # (Manual) Monocytes # (Manual) PT INR APTT Fibrinogen D-Dimer ABG pH POC ABG pCO2 POC ABG pO2 ABG pO2 ABG HCO3 ABG O2 Saturation ABG Base Excess ABG Hemoglobin ABG Oxyhemoglobin Oxyhemoglobin Sodium Potassium Chloride Carbon Dioxide BUN Creatinine Glucose 144 H POC Glucose Lactic Acid Calcium AST ALT Alkaline Phosphatase Total Protein Albumin Triglycerides Ur Specific [place] Crossmatch See Detail 06/11/21 06/11/21 06/11/21 19:29 19:29 23:21 WBC 15.8 H RBC Hgb 9.4 L Hct MCV 72 L MCH 22 L RDW 17.4 H Plt Count Lymph % (Auto) 9.2 L [place] % (Auto) [place] # (Auto) Seg Neutrophils % 89.0 H Seg Neuts % (Manual) Lymphocytes % (Manual) Monocytes % (Manual) Seg Neutrophils # 14.0 H Seg Neutrophils # Man Lymphocytes # (Manual) Monocytes # (Manual) PT 72.9 H INR 8.18 H* APTT 71.7 H* Fibrinogen D-Dimer ABG pH POC ABG pCO2 POC ABG pO2 ABG pO2 ABG HCO3 ABG O2 Saturation ABG Base Excess ABG Hemoglobin ABG Oxyhemoglobin Oxyhemoglobin Sodium 149 H D Potassium Chloride 124.3 H Carbon Dioxide 8 L* D BUN Creatinine 0.3 L Glucose 628 H* POC Glucose Lactic Acid Calcium 2.4 L* D AST ALT < 5 L Alkaline Phosphatase 19 L Total Protein 1.6 L D Albumin 0.8 L Triglycerides Ur Specific [place] Crossmatch 06/11/21 06/11/21 06/11/21 23:21 23:22 23:42 WBC RBC Hgb Hct MCV MCH 27 L RDW 22.2 H Plt Count 131 L Lymph % (Auto) [place] % (Auto) [place] # (Auto) Seg Neutrophils % Seg Neuts % (Manual) Lymphocytes % (Manual) Monocytes % (Manual) Seg Neutrophils # Seg Neutrophils # Man Lymphocytes # (Manual) Monocytes # (Manual) PT 46.3 H INR 4.55 H APTT 54.8 H Fibrinogen D-Dimer ABG pH POC ABG pCO2 POC ABG pO2 325.9 H ABG pO2 ABG HCO3 ABG O2 Saturation ABG Base Excess ABG Hemoglobin 8.0 L ABG Oxyhemoglobin 99.0 H Oxyhemoglobin Sodium Potassium Chloride Carbon Dioxide BUN Creatinine Glucose POC Glucose Lactic Acid Calcium AST ALT Alkaline Phosphatase Total Protein Albumin Triglycerides Ur Specific [place] Crossmatch 06/12/21 06/12/21 06/12/21 01:45 01:45 01:45 WBC 21.6 H RBC 3.04 L Hgb 6.7 L D Hct 22.4 L D MCV 74 L MCH 22 L RDW 18.9 H Plt Count Lymph % (Auto) [place] % (Auto) [place] # (Auto) Seg Neutrophils % Seg Neuts % (Manual) 76.0 H Lymphocytes % (Manual) 2.0 L Monocytes % (Manual) 8.0 H Seg Neutrophils # Seg Neutrophils # Man 16.4 H Lymphocytes # (Manual) 0.4 L Monocytes # (Manual) 1.7 H PT 25.4 H INR 2.10 H APTT Fibrinogen D-Dimer ABG pH POC ABG pCO2 POC ABG pO2 ABG pO2 ABG HCO3 ABG O2 Saturation ABG Base Excess ABG Hemoglobin ABG Oxyhemoglobin Oxyhemoglobin Sodium Potassium 5.6 H D Chloride Carbon Dioxide 20 L D BUN Creatinine Glucose 368 H POC Glucose Lactic Acid Calcium 7.1 L D AST ALT Alkaline Phosphatase Total Protein 5.3 L D Albumin 3.1 L Triglycerides Ur Specific [place] Crossmatch 06/12/21 06/12/21 06/12/21 02:05 04:41 11:05 WBC 14.6 H RBC 3.52 L Hgb 8.5 L Hct 27.7 L MCV MCH 24 L RDW 20.9 H Plt Count Lymph % (Auto) [place] % (Auto) [place] # (Auto) Seg Neutrophils % Seg Neuts % (Manual) Lymphocytes % (Manual) Monocytes % (Manual) Seg Neutrophils # Seg Neutrophils # Man Lymphocytes # (Manual) Monocytes # (Manual) PT INR APTT Fibrinogen D-Dimer ABG pH POC ABG pCO2 POC ABG pO2 224.6 H ABG pO2 ABG HCO3 ABG O2 Saturation ABG Base Excess ABG Hemoglobin 7.3 L ABG Oxyhemoglobin 98.7 H Oxyhemoglobin Sodium Potassium Chloride Carbon Dioxide BUN Creatinine Glucose POC Glucose 308 H Lactic Acid Calcium AST ALT Alkaline Phosphatase Total Protein Albumin Triglycerides Ur Specific [place] Crossmatch 06/12/21 06/12/21 06/12/21 11:05 11:05 12:18 WBC RBC Hgb Hct MCV MCH RDW Plt Count Lymph % (Auto) [place] % (Auto) [place] # (Auto) Seg Neutrophils % Seg Neuts % (Manual) Lymphocytes % (Manual) Monocytes % (Manual) Seg Neutrophils # Seg Neutrophils # Man Lymphocytes # (Manual) Monocytes # (Manual) PT 16.8 H INR 1.23 H APTT Fibrinogen D-Dimer ABG pH POC ABG pCO2 POC ABG pO2 ABG pO2 ABG HCO3 ABG O2 Saturation ABG Base Excess ABG Hemoglobin ABG Oxyhemoglobin Oxyhemoglobin Sodium Potassium Chloride Carbon Dioxide BUN 24 H Creatinine Glucose 324 H POC Glucose 281 H Lactic Acid Calcium 7.5 L AST 70 H ALT 57 H Alkaline Phosphatase Total Protein 6.0 L Albumin 3.6 L Triglycerides Ur Specific [place] Crossmatch 06/12/21 06/12/21 06/12/21 17:00 17:00 17:00 WBC RBC Hgb 7.5 L Hct 24.0 L MCV MCH RDW Plt Count Lymph % (Auto) [place] % (Auto) [place] # (Auto) Seg Neutrophils % Seg Neuts % (Manual) Lymphocytes % (Manual) Monocytes % (Manual) Seg Neutrophils # Seg Neutrophils # Man Lymphocytes # (Manual) Monocytes # (Manual) PT 16.0 H INR 1.16 H APTT Fibrinogen D-Dimer ABG pH POC ABG pCO2 POC ABG pO2 ABG pO2 ABG HCO3 ABG O2 Saturation ABG Base Excess ABG Hemoglobin ABG Oxyhemoglobin Oxyhemoglobin Sodium Potassium Chloride Carbon Dioxide BUN Creatinine Glucose POC Glucose Lactic Acid Calcium AST ALT Alkaline Phosphatase Total Protein Albumin Triglycerides Ur Specific [place] 1.035 H Crossmatch 06/12/21 06/12/21 06/12/21 18:06 23:00 23:05 WBC RBC Hgb 7.6 L Hct 23.5 L MCV MCH RDW Plt Count Lymph % (Auto) [place] % (Auto) [place] # (Auto) Seg Neutrophils % Seg Neuts % (Manual) Lymphocytes % (Manual) Monocytes % (Manual) Seg Neutrophils # Seg Neutrophils # Man Lymphocytes # (Manual) Monocytes # (Manual) PT INR APTT Fibrinogen D-Dimer ABG pH POC ABG pCO2 POC ABG pO2 ABG pO2 ABG HCO3 ABG O2 Saturation ABG Base Excess ABG Hemoglobin ABG Oxyhemoglobin Oxyhemoglobin Sodium Potassium Chloride Carbon Dioxide BUN Creatinine Glucose POC Glucose 257 H 300 H Lactic Acid Calcium AST ALT Alkaline Phosphatase Total Protein Albumin Triglycerides Ur Specific [place] Crossmatch 06/13/21 06/13/21 06/13/21 04:31 05:19 07:30 WBC RBC Hgb 6.8 L Hct 21.7 L MCV MCH RDW Plt Count Lymph % (Auto) [place] % (Auto) [place] # (Auto) Seg Neutrophils % Seg Neuts % (Manual) Lymphocytes % (Manual) Monocytes % (Manual) Seg Neutrophils # Seg Neutrophils # Man Lymphocytes # (Manual) Monocytes # (Manual) PT INR APTT Fibrinogen D-Dimer ABG pH 7.541 H POC ABG pCO2 25.6 L POC ABG pO2 138.8 H ABG pO2 ABG HCO3 ABG O2 Saturation ABG Base Excess ABG Hemoglobin 7.3 L ABG Oxyhemoglobin 98.1 H Oxyhemoglobin Sodium Potassium Chloride Carbon Dioxide BUN Creatinine Glucose POC Glucose 286 H Lactic Acid Calcium AST ALT Alkaline Phosphatase Total Protein Albumin Triglycerides Ur Specific [place] Crossmatch 06/13/21 06/13/21 06/13/21 07:30 12:04 14:50 WBC RBC Hgb Hct MCV MCH RDW Plt Count Lymph % (Auto) [place] % (Auto) [place] # (Auto) Seg Neutrophils % Seg Neuts % (Manual) Lymphocytes % (Manual) Monocytes % (Manual) Seg Neutrophils # Seg Neutrophils # Man Lymphocytes # (Manual) Monocytes # (Manual) PT INR APTT Fibrinogen D-Dimer ABG pH 7.039 L* 7.182 L* POC ABG pCO2 POC ABG pO2 ABG pO2 63.1 L ABG HCO3 17.4 L ABG O2 Saturation 73.4 L ABG Base Excess -12.6 L -7.1 L ABG Hemoglobin 7.7 L 6.9 L ABG Oxyhemoglobin Oxyhemoglobin 71.8 L 93.5 L Sodium Potassium Chloride 108.9 H Carbon Dioxide BUN 28 H Creatinine Glucose 293 H POC Glucose Lactic Acid Calcium 7.2 L AST 106 H ALT 92 H Alkaline Phosphatase Total Protein 5.6 L Albumin 3.3 L Triglycerides Ur Specific [place] Crossmatch 06/13/21 06/13/21 06/13/21 14:54 15:45 17:34 WBC RBC Hgb Hct MCV MCH RDW Plt Count Lymph % (Auto) [place] % (Auto) [place] # (Auto) Seg Neutrophils % Seg Neuts % (Manual) Lymphocytes % (Manual) Monocytes % (Manual) Seg Neutrophils # Seg Neutrophils # Man Lymphocytes # (Manual) Monocytes # (Manual) PT INR APTT Fibrinogen D-Dimer ABG pH POC ABG pCO2 POC ABG pO2 ABG pO2 178.4 H ABG HCO3 ABG O2 Saturation 99.1 H ABG Base Excess ABG Hemoglobin 8.0 L ABG Oxyhemoglobin Oxyhemoglobin Sodium Potassium Chloride 107.3 H Carbon Dioxide 19 L BUN 33 H Creatinine 1.5 H Glucose 379 H POC Glucose Lactic Acid 5.30 H* Calcium 6.8 L AST ALT Alkaline Phosphatase Total Protein Albumin Triglycerides Ur Specific [place] Crossmatch 06/13/21 06/13/21 06/13/21 17:40 23:29 Unknown WBC 22.5 H RBC 3.16 L Hgb 8.0 L Hct 26.0 L MCV MCH 26 L RDW 21.4 H Plt Count Lymph % (Auto) [place] % (Auto) [place] # (Auto) Seg Neutrophils % Seg Neuts % (Manual) 88.0 H Lymphocytes % (Manual) 4.0 L Monocytes % (Manual) Seg Neutrophils # Seg Neutrophils # Man 19.8 H Lymphocytes # (Manual) 0.9 L Monocytes # (Manual) 1.4 H PT INR APTT Fibrinogen D-Dimer ABG pH POC ABG pCO2 POC ABG pO2 ABG pO2 ABG HCO3 ABG O2 Saturation ABG Base Excess ABG Hemoglobin ABG Oxyhemoglobin Oxyhemoglobin Sodium Potassium Chloride Carbon Dioxide BUN Creatinine Glucose POC Glucose 294 H 288 H Lactic Acid Calcium AST ALT Alkaline Phosphatase Total Protein Albumin Triglycerides Ur Specific [place] Crossmatch 06/13/21 06/14/21 06/14/21 Unknown 05:39 06:15 WBC RBC 2.93 L Hgb 7.2 L Hct 23.2 L MCV MCH 25 L RDW 21.2 H Plt Count Lymph % (Auto) [place] % (Auto) [place] # (Auto) Seg Neutrophils % Seg Neuts % (Manual) Lymphocytes % (Manual) Monocytes % (Manual) Seg Neutrophils # Seg Neutrophils # Man Lymphocytes # (Manual) Monocytes # (Manual) PT 17.6 H INR 1.31 H APTT Fibrinogen 546 H D-Dimer 1244.63 H ABG pH POC ABG pCO2 POC ABG pO2 ABG pO2 ABG HCO3 ABG O2 Saturation ABG Base Excess ABG Hemoglobin ABG Oxyhemoglobin Oxyhemoglobin Sodium Potassium Chloride Carbon Dioxide BUN Creatinine Glucose POC Glucose 246 H Lactic Acid Calcium AST ALT Alkaline Phosphatase Total Protein Albumin Triglycerides Ur Specific [place] Crossmatch 06/14/21 06/14/21 06/14/21 06:15 06:15 09:13 WBC RBC Hgb Hct MCV MCH RDW Plt Count Lymph % (Auto) [place] % (Auto) [place] # (Auto) Seg Neutrophils % Seg Neuts % (Manual) Lymphocytes % (Manual) Monocytes % (Manual) Seg Neutrophils # Seg Neutrophils # Man Lymphocytes # (Manual) Monocytes # (Manual) PT INR APTT Fibrinogen D-Dimer ABG pH POC ABG pCO2 POC ABG pO2 ABG pO2 183.0 H ABG HCO3 ABG O2 Saturation 99.2 H ABG Base Excess ABG Hemoglobin 6.6 L ABG Oxyhemoglobin Oxyhemoglobin Sodium 147 H Potassium Chloride 112.5 H Carbon Dioxide 21 L BUN 36 H Creatinine 1.4 H Glucose 281 H POC Glucose Lactic Acid Calcium 6.9 L AST ALT Alkaline Phosphatase Total Protein Albumin Triglycerides 189 H Ur Specific [place] Crossmatch 06/14/21 06/14/21 10:45 12:16 WBC RBC Hgb 7.1 L Hct 22.3 L MCV MCH RDW Plt Count Lymph % (Auto) [place] % (Auto) [place] # (Auto) Seg Neutrophils % Seg Neuts % (Manual) Lymphocytes % (Manual) Monocytes % (Manual) Seg Neutrophils # Seg Neutrophils # Man Lymphocytes # (Manual) Monocytes # (Manual) PT INR APTT Fibrinogen D-Dimer ABG pH POC ABG pCO2 POC ABG pO2 ABG pO2 ABG HCO3 ABG O2 Saturation ABG Base Excess ABG Hemoglobin ABG Oxyhemoglobin Oxyhemoglobin Sodium Potassium Chloride Carbon Dioxide BUN Creatinine Glucose POC Glucose 174 H Lactic Acid Calcium AST ALT Alkaline Phosphatase Total Protein Albumin Triglycerides Ur Specific [place] Crossmatch
[2021-06-14] MEDS: LACTATED RINGERS 1,000 ML IV SCH (13:00)
--- NOTE | 2021-06-14 13:04 | Event Note ---
Date: 06/14/21 Called to bedside. Nursing heard gurgling and blood was seen. No pulse felt by the time I got to bedside so compressions were started. After 3 rounds of epi and CPR, ROSC achieved. Good waveform and blood pressure on the art line. State portable film shows resolution of lobar collapse on left and stable right sided chest tube with hemothorax. Called and spoke with brother who listed as contact in chart to update him.
--- NOTE | 2021-06-14 13:16 | XRay Report ---
CHEST 1 VIEW, one exam at 12:27 PM Eastern standard time and the other at 12:51 PM INDICATION: f/u pneumo. COMPARISON: 06/13/2021 FINDINGS: SUPPORT DEVICES: Right-sided chest tube remains in place with tip directed towards the right apex. E ndotracheal tube tip is below the level the clavicles. HEART: Within normal limits. LUNGS/PLEURA: Slightly improved aeration in the right lung base but more importantly there is drastic improvement in the left lung which was previously completely opacified and now is nearly clear. Trac e residual right-sided pneumothorax again noted with moderate subcutaneous emphysema over the right c hest wall. Mild patchy multifocal airspace disease again seen throughout the lungs. ADDITIONAL FINDINGS: None. IMPRESSION: 1. Significantly improved exam as above. 2. Indication says retained foreign body--I have no further information and see no foreign body. Signer Name: Home Hendricks MD Signed: 06/14/2021 1:11 PM Workstation Name: [id number]
[2021-06-14] MEDS: PIPERACIL/TAZOBACTA 4.5/NS 100 4.5 GM/100 ML VIAL IV SCH ×3 (13:36→23:40)
[2021-06-14 13:47] LABS: ABG Base Excess -7.2 mmol/L (-2.0-3.0); ABG HCO3 20.3 mmol/L (20.0-26.0); ABG Methemoglobin 0.6 % (0.0-1.5); ABG Oxygen Saturation 99.4 % (95.0-99.0); ABG PCO2 52.6 mm Hg; ABG PH 7.205 pH Units (7.350-7.450)
[2021-06-14 13:48] LABS: ABG PO2 261.3 mm Hg (80.0-90.0)
--- NOTE | 2021-06-14 13:48 | Post Anesthesia Evaluation ---
- Post Anesthesia Evaluation Patient Participated: No (intubated) Airway Patent: Yes Stable Respiratory Function: Yes Nausea/Vomiting: No Temp > 96.8F: Yes Pain Manageable: Yes (IV) Adequeate Hydration: Yes (IV; off pressors) Anesthesia Complications: No Block Receding Appropriately: Not Applicable Patient on Ventilator: Yes (due to the procedure and pt's main issue)
--- NOTE | 2021-06-14 13:51 | Procedure Note ---
Date of procedure: 06/14/21 Pre-op diagnosis: Ludwigg's angina with coagulopathy Procedure: Exploration of neck wound with removal of quick clot and placement of Brush drain Findings: The patient was seen at the bedside in the ICU with monitors in place and sedation on board. Timeout is completed with the nurse. Consent for exploration of the neck ointment was obtained yesterday. The running suture that was used for closure was removed after prepping the skin with ChloraPrep. 5 quick clot gauzes were removed and accounted for. No active bleeding is seen. The wound is irrigated with saline and aspirated with suction. No active bleeding was seen no ear air leaks were evident. The wound was filled with saline and again checked for air leaks none was found. The prior location of the surgical airway was seen and loosely approximated with two 3-0 Vicryl sutures using an SH needle. A Brush drain was placed to the deep space and allowed to exit the inferior aspect of the T shaped incision. Subcutaneous tissue and platysma was loosely reapproximated with 3-0 Vicryl. Skin was loosely reapproximated with vertical mattress sutures of 4-0 Prolene. Sterile dressing with Xeroform gauze was placed. Patient tolerated procedure well. Anesthesia: none Surgeon: LYLA BERNSTEIN Mgmt Specialist: JENNI GOLD Estimated blood loss: none Pathology: none Condition: critical Disposition: ICU
--- NOTE | 2021-06-14 17:08 | Progress Note ---
<JORGEKIT JosseCandelaria - Last Filed: 06/14/21 17:02> Assessment and Plan Assessment and plan: This is a 76-year-old female with HTN, Coumadin use, dental caries, PVD s/p stenting to right leg, DM, arthritis, depression, gout and ? Pulmonary hypertension admitted with Jeremiah's angina s/p emergent cric with bleeding, right sided pneumothorax, supratherapeutic INR, hypernatremia, hyperchloremia, severe metabolic acidosis, hyperglycemia and hypocalcemia Neuro: Sedated, h/o depression, arthritis -Sedated with versed, propofol, fentanyl gtt -RASS goal -3 to -4 -Bilateral wrist restraints in place for safety -Avoid delirium -Reorientation as needed -Maintain sleep-wake cycle Cardiac: S/p cardiac arrest, h/o htn, PVD s/p stenting Right leg -06/14 cardiac arrest with ROSC -Vasopressor support with Levophed and Fabian-Synephrine -Titrate as tolerated -MAP goal greater than 65 -Blood pressure monitoring per protocol -Pressure monitoring via A-line -Echocardiogram pending Respiratory: Acute hypoxic respiratory failure, right pneumothorax -CCM consulted, appreciate recommendations -S/p emergent cricothyroid with surgery with 8.00 ETT -A.m. vent settings: Assist-control rate 22, tidal volume 450, PEEP 6, FiO2 100% -See RT notes for titration -Postcode ABG noted: FiO2 decreased to 70% (SPO2 90%), and increase of tidal volume to 500 -A.m. ABG and CXR noted -Right chest tube replaced by surgery -CT to wall suction -Change to larger bore on 06/13 -Postop CXR shows possible hydropneumothorax on right side -06/13 bronchoscopy showed possible blood clot in left lung which may be acting as mucous plug however it was left in place due to possible bleeding inside lung if removed. -Repeat CXR post cardiac arrest shows clearance of mucous plug -VAP bundle -SPO2 monitoring GI: Protein calorie malnutrition -24 hours +1486 -PPI -Hold BR in setting of no enteral access : KAPIL possibly secondary to vasomotor nephropathy, metabolic acidosis -Strict intake and output -Renally dose medications -Avoid nephrotoxic medications -Daily weights -Consider nephrology consult if worsens -S/p 2 L LR bolus yesterday -Repeat 2 L LR bolus today ID: 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 dental caries -CT neck with contrast showed a significant right floor of mild swelling with extension into the submandibular and submental spaces, significant thickening and inflammation involving the right pharyngeal wall, with the parapharyngeal and retropharyngeal spaces at the level of the thyroid cartilage, epiglottis significantly swollen and so are the aryepiglottic folds resulting in significant airway narrowing at this level, no lymphadenopathy, symmetric s ubmandibular and parathyroid glands, S few scattered caries but no periapical lucencies, nonspecific calcification along the right lateral oropharynx, no definite stone seen within the territory of the submandibular gland ducts, no suspicious rashes lesion -Infectious disease and general surgery consulted, appreciate recommendations -s/p cricothyroid ectomy -Will follow surgery to direction and treatment of injury -Per surgery may have mucosal injury -Intra-Op findings include post pharyngeal swelling and bruising -Solu-Medrol 125 every 8 -Antibiotic therapy with cefepime, Flagyl, vancomycin -changed to zosyn -COVID-19 PCR negative -f/u blood culture -Monitor WBC and temperature curve -s/p 5L normal saline bolus in ED, 4 L LR bolus in ICU Heme: Coagulopathy, supratherapeutic INR, acute blood loss anemiq, possible component of hemorrhagic shock -Patient is on Coumadin at home -S/p 5 FFP, 6 PRBC, vitamin K x3 -Trend CBC -Presented with H/H of 10.3/34.6 and decreased to 6.7/22.4 -Serial H/H -INR 8.18-> 4.55-> 2.1-> 1.23-> 1.16-> 1.31 -Monitor INR -Transfuse hemoglobin less than 7 -Hemoglobin 7.1 -1 unit PRBC -Monitor for signs of bleeding -SCDs to BLE while in bed -Avoid chemical anticoagulation in setting of recent blood loss anemia Endo: h/o DM, gout -Avoid hypoglycemia -SSI -Accu-Cheks q. 6hr The high probability of a clinically significant, sudden or life threatening deterioration of the [multi] system(s) required my full and direct attention, intervention and personal management. The aggregate critical care time was [60] minutes. This time is in addition to time spent performing reported procedures but includes the following: [x] Data Review and interpretation [x] Patient assessment and monitoring of vital signs [x] Documentation [x] Medication orders and management Disposition Plan: icu Total Time Spent with Patient (Minutes): 60 History Interval history: This is a 76-year-old female with HTN, Coumadin use , dental caries, PVD s/p stenting right leg, DM, arthritis, depression, gout, and ? Pulmonary hypertension who presented to emergency department on 06/11 with complaints of pain to mandible area and throat and swelling. Work-up in the emergency department included CT scan of the head and neck which showed findings consistent with Jeremiah's angina and anesthesia was called for intubation. An esthesia intubation attempts were unsuccessful and surgery was consulted for cricothyroidotomy which was unsuccessful in the emergency department and patient was taken to the OR for tracheostomy. Intubation procedure was complicated by development of pneumothorax and excessive bleeding. Patient given multiple FFP's and vitamin K several times who attempts to decrease INR. Lab work showed leukocytosis, supratherapeutic INR, hypernatremia, hyperchloremia, severe metabolic acidosis, hyperglycemia, hypocalcemia. Patient was admitted to the hospitalist service with consults to [facility], general surgery, infectious disease. Hospital course to date: 06/12: Patient received additional 2 units FFP and 1 unit PRBC and vitamin K today. Overnight critical care placed a femoral CVL. Patient sedated on fent anyl, propofol and Versed. Currently on Fabian-Synephrine and Levophed for blood pressure maintenance. Remains amatory support. Infectious disease consulted. Started on sliding scale insulin and recultured. COVID-19 PCR pending. Surgery at bedside to place chest tube. 06/13: Patient was taken back to the OR today for exchange cricothyroid to possible tracheostomy. Patient returned with ETT. Chest tube was changed to larger size in the OR. Patient was hypotensive, tachycardic, hypoxic in the OR and received hespan, albumin and an A-line. Upon arrival patient was increased to max dose Levophed for hypotension which has resolved. Titrating vasopressors as tolerated. Remains on sedation with 3 agents. Apparently patient was not ventilating her left lung Intra-Op. Noted to have subcu hematoma and trauma to postpharyngeal area. Questionable decrease cardiac wall motion noted in OR-> will order echocardiogram to further investigate. Patient received additional PRBC today. DIC panel resulted as normal. Patient BUN/creatinine did increase as well as noted to have lactic acidosis. May need IV bolus in addition to pressor use. Likely bronc with Pulmicort today as repeat CXR showed right possible pneumo hydrothorax 06/14: Antibiotics changed to Zosyn per ID, surgical packing removed from neck and makeshift Faith drain placed by surgery and old chronic thyroidectomy site. CXR was completed and RN heard gurgling and blood was noted on dressing. ST elevation noted on bedside monitor and patient was hypoxic. FiO2 increased to 100%. However shortly after patient lost her pulse and ACLS was initiated. Patient received 3 rounds of epinephrine and ROSC was achieved. Stat portable CXR showed resolution of lower lobe collapse on the left and stable right-sided chest tube with hemothorax. CCM updated family. Patient H/H noted to be 7.2/23.2 and did RN to transfuse prepared PRBC which ws [facility] blood bank. Bedside echo completed. Hospitalist Physical - Constitutional Vitals: Temp Pulse Resp BP Pulse Ox 98.6 F 91 H 22 113/73 97 06/14/21 16:00 06/14/21 16:21 06/14/21 16:21 06/14/21 16:21 06/14/21 16:21 General appearance: Present: no acute distress, obese - EENT Eyes: Present: EOM intact ENT: dentition normal - Neck Neck: Present: masses or JVD - Respiratory Respiratory effort: normal Respiratory: bilateral: diminished - Cardiovascular Rhythm: regular Heart Sounds: Present: S1 & S2. Absent: systolic murmur, diastolic murmur - Extremities Extremities: no ischemia, pulses intact, pulses symmetrical, No edema, normal temperature, normal color Peripheral Pulses: within normal limits - Abdominal General gastrointestinal: soft, non-tender, non-distended, normal bowel sounds - Integumentary Integumentary: Present: warm (t), dry - Psychiatric Psychiatric: other (sedated) - Neurologic Neurologic: other (sedated) - Allied Health Allied health notes reviewed: nursing, RT, social work HEART Score - HEART Score Troponin: Troponin T < 0.010 ng/mL (0.00-0.029) 06/11/21 23:21 Results - Labs CBC & Chem 7: 06/14/21 10:45 06/14/21 06:15 Labs: Laboratory Last Values WBC 9.3 K/mm3 (4.5-11.0) 06/14/21 06:15 RBC 2.93 M/mm3 (3.65-5.03) L 06/14/21 06:15 Hgb 7.1 gm/dl (10.1-14.3) L 06/14/21 10:45 Hct 22.3 % (30.3-42.9) L 06/14/21 10:45 MCV 79 fl (79-97) 06/14/21 06:15 MCH 25 pg (28-32) L 06/14/21 06:15 MCHC 31 % (30-34) 06/14/21 06:15 RDW 21.2 % (13.2-15.2) H 06/14/21 06:15 Plt Count 175 K/mm3 (140-440) 06/14/21 06:15 Lymph % (Auto) 9.2 % (13.4-35.0) L 06/11/21 19:29 [place] % (Auto) 1.4 % (0.0-7.3) 06/11/21 19: Eos % (Auto) 0.2 % (0.0-4.3) 06/11/21 19:29 Baso % (Auto) 0.2 % (0.0-1.8) 06/11/21 19: Lymph # (Auto) 1.4 K/mm3 (1.2-5.4) 06/11/21 19:29 [place] # (Auto) 0.2 K/mm3 (0.0-0.8) 06/11/21 19: Eos # (Auto) 0.0 K/mm3 (0.0-0.4) 06/11/21 19:29 Baso # (Auto) 0.0 K/mm3 (0.0-0.1) 06/11/21 19:29 Add Manual Diff Complete 06/13/21 Unknown Total Counted 100 06/13/21 Unknown Seg Neutrophils % 89.0 % (40.0-70.0) H 06/11/21 19:29 Seg Neuts % (Manual) 88.0 % (40.0-70.0) H 06/13/21 Unknown Band Neutrophils % 2.0 % 06/13/21 Unknown Lymphocytes % (Manual) 4.0 % (13.4-35.0) L 06/13/21 Unknown Reactive Lymphs % (Man) 0 % 06/13/21 Unknown Monocytes % (Manual) 6.0 % (0.0-7.3) 06/13/21 Unknown Eosinophils % (Manual) 0 % (0.0-4.3) 06/13/21 Unknown Basophils % (Manual) 0 % (0.0-1.8) 06/13/21 Unknown Metamyelocytes % 0 % 06/13/21 Unknown Myelocytes % 0 % 06/13/21 Unknown Promyelocytes % 0 % 06/13/21 Unknown Blast Cells % 0 % 06/13/21 Unknown Nucleated RBC % Not Reportable 06/13/21 Unknown Seg Neutrophils # 14.0 K/mm3 (1.8-7.7) H 06/11/21 19:29 Seg Neutrophils # Man 19.8 K/mm3 (1.8-7.7) H 06/13/21 Unknown Band Neutrophils # 0.5 K/mm3 06/13/21 Unknown Lymphocytes # (Manual) 0.9 K/mm3 (1.2-5.4) L 06/13/21 Unknown Abs React Lymphs (Man) 0.0 K/mm3 06/13/21 Unknown Monocytes # (Manual) 1.4 K/mm3 (0.0-0.8) H 06/13/21 Unknown Eosinophils # (Manual) 0.0 K/mm3 (0.0-0.4) 06/13/21 Unknown Basophils # (Manual) 0.0 K/mm3 (0.0-0.1) 06/13/21 Unknown Metamyelocytes # 0.0 K/mm3 06/13/21 Unknown Myelocytes # 0.0 K/mm3 06/13/21 Unknown Promyelocytes # 0.0 K/mm3 06/13/21 Unknown Blast Cells # 0.0 K/mm3 06/13/21 Unknown WBC Morphology Not Reportable 06/13/21 Unknown Hypersegmented Neuts Not Reportable 06/13/21 Unknown Hyposegmented Neuts Not Reportable 06/13/21 Unknown Hypogranular Neuts Not Reportable 06/13/21 Unknown Smudge Cells Not Reportable 06/13/21 Unknown Toxic Granulation 2+ 06/13/21 Unknown Toxic Vacuolation Not Reportable 06/13/21 Unknown Dohle Bodies Not Reportable 06/13/21 Unknown Pelger-Huet Anomaly Not Reportable 06/13/21 Unknown Dennis Rods Not Reportable 06/13/21 Unknown Platelet Estimate Consistent w auto 06/13/21 Unknown Clumped Platelets Not Reportable 06/13/21 Unknown Plt Clumps, EDTA Not Reportable 06/13/21 Unknown Large Platelets Not Reportable 06/13/21 Unknown Giant Platelets Not Reportable 06/13/21 Unknown Platelet Satelliting Not Reportable 06/13/21 Unknown Plt Morphology Comment Not Reportable 06/13/21 Unknown RBC Morphology Not Reportable 06/13/21 Unknown Dimorphic RBCs Not Reportable 06/13/21 Unknown Polychromasia Few 06/13/21 Unknown Hypochromasia 2+ 06/13/21 Unknown Poikilocytosis Not Reportable 06/13/21 Unknown Anisocytosis 1+ 06/13/21 Unknown Microcytosis Not Reportable 06/13/21 Unknown Macrocytosis Not Reportable 06/13/21 Unknown Spherocytes Not Reportable 06/13/21 Unknown Pappenheimer Bodies Not Reportable 06/13/21 Unknown Sickle Cells Not Reportable 06/13/21 Unknown Target Cells Not Reportable 06/13/21 Unknown Tear Drop Cells Not Reportable 06/13/21 Unknown Ovalocytes Not Reportable 06/13/21 Unknown Stomatocytes Few 06/12/21 01:45 Helmet Cells Not Reportable 06/13/21 Unknown [place] Bodies Not Reportable 06/13/21 Unknown Mobile Rings Not Reportable 06/13/21 Unknown [place] Cells Not Reportable 06/13/21 Unknown Bite Cells Not Reportable 06/13/21 Unknown Crenated Cell Not Reportable 06/13/21 Unknown Elliptocytes Not Reportable 06/13/21 Unknown Acanthocytes (Spur) Not Reportable 06/13/21 Unknown Rouleaux Not Reportable 06/13/21 Unknown Hemoglobin C Crystals Not Reportable 06/13/21 Unknown Schistocytes Not Reportable 06/13/21 Unknown Malaria parasites Not Reportable 06/13/21 Unknown Edin Bodies Not Reportable 06/13/21 Unknown Hem Pathologist Commnt No 06/13/21 Unknown PT 17.6 Sec. (12.2-14.9) H 06/13/21 Unknown INR 1.31 (0.87-1.13) H 06/13/21 Unknown APTT 26.4 Sec. (24.2-36.6) 06/13/21 Unknown Fibrinogen 546 mg/dl (211-480) H 06/13/21 Unknown D-Dimer 1244.63 ng/mlDDU (0-234) H 06/13/21 Unknown ABG pH 7.205 pH Units (7.350-7.450) L 06/14/21 13:30 POC ABG pCO2 25.6 mmHg (32.0-48.0) L 06/13/21 04:31 ABG pCO2 52.6 mm Hg 06/14/21 13:30 POC ABG pO2 138.8 mmHg (83-108) H 06/13/21 04:31 ABG pO2 261.3 mm Hg (80.0-90.0) H 06/14/21 13:30 POC ABG HCO3 21.4 06/13/21 04:31 ABG HCO3 20.3 mmol/L (20.0-26.0) 06/14/21 13:30 ABG O2 Saturation 99.4 % (95.0-99.0) H 06/14/21 13:30 ABG O2 Content 11.2 (0.0-44) 06/14/21 13:30 POC ABG Base Excess -0.7 06/13/21 04:31 ABG Base Excess -7.2 mmol/L (-2.0-3.0) L 06/14/21 13:30 ABG Hemoglobin 7.6 gm/dl (12.0-16.0) L 06/14/21 13:30 ABG Oxyhemoglobin 98.1 (94-98) H 06/13/21 04:31 ABG Carboxyhemoglobin 1.1 % (0.0-5.0) 06/14/21 13:30 ABG Methemoglobin 0.6 % (0.0-1.5) 06/14/21 13:30 Oxyhemoglobin 97.7 % (95.0-99.0) 06/14/21 13:30 Carboxyhemoglobin 0.8 (0.5-1.5) 06/13/21 04:31 FiO2 100 % 06/14/21 13:30 FiO2 % 40.0 06/13/21 04:31 Sodium 147 mmol/L (137-145) H 06/14/21 06:15 Potassium 3.8 mmol/L (3.6-5.0) D 06/14/21 06:15 Chloride 112.5 mmol/L (98-107) H 06/14/21 06:15 Carbon Dioxide 21 mmol/L (22-30) L 06/14/21 06:15 Anion Gap 17 mmol/L 06/14/21 06:15 BUN 36 mg/dL (7-17) H 06/14/21 06:15 Creatinine 1.4 mg/dL (0.6-1.2) H 06/14/21 06:15 Estimated GFR 44 ml/min 06/14/21 06:15 BUN/Creatinine Ratio 26 % 06/14/21 06:15 Glucose 281 mg/dL (65-100) H 06/14/21 06:15 POC Glucose 174 mg/dL (70-105) H 06/14/21 12:16 Lactic Acid 5.30 mmol/L (0.7-2.0) H* 06/13/21 15:45 Calcium 6.9 mg/dL (8.4-10.2) L 06/14/21 06:15 Phosphorus 3.70 mg/dL (2.5-4.5) D 06/14/21 06:15 Magnesium 1.90 mg/dL (1.7-2.3) 06/14/21 06:15 Total Bilirubin 0.30 mg/dL (0.1-1.2) 06/13/21 07:30 AST 106 units/L (5-40) H 06/13/21 07:30 ALT 92 units/L (7-56) H 06/13/21 07:30 Alkaline Phosphatase 60 units/L (35-129) 06/13/21 07:30 Troponin T < 0.010 ng/mL (0.00-0.029) 06/11/21 23:21 Total Protein 5.6 g/dL (6.3-8.2) L 06/13/21 07:30 Albumin 3.3 g/dL (3.9-5) L 06/13/21 07:30 Albumin/Globulin Ratio 1.4 % 06/13/21 07:30 Triglycerides 189 mg/dL (2-149) H 06/14/21 06:15 Urine Color Yellow (Yellow) 06/12/21 17:00 Urine Turbidity Clear (Clear) 06/12/21 17:00 Urine pH 5.0 (5.0-7.0) 06/12/21 17:00 Ur Specific [place] 1.035 (1.003-1.030) H 06/12/21 17:00 Urine Protein 30 mg/dl mg/dL (Negative) 06/12/21 17:00 Urine Glucose (UA) 50 mg/dL (Negative) 06/12/21 17:00 Urine Ketones Tr mg/dL (Negative) 06/12/21 17:00 Urine Blood Neg (Negative) 06/12/21 17:00 Urine Nitrite Neg (Negative) 06/12/21 17:00 Urine Bilirubin Neg (Negative) 06/12/21 17:00 Urine Urobilinogen < 2.0 mg/dL (<2.0) 06/12/21 17:00 Ur Leukocyte Esterase Neg (Negative) 06/12/21 17:00 Urine WBC (Auto) < 1.0 /HPF (0.0-6.0) 06/12/21 17:00 Urine RBC (Auto) < 1.0 /HPF (0.0-6.0) 06/12/21 17:00 Coronavirus (PCR) Negative (Negative) 06/12/21 09:50 Blood Type O POSITIVE 06/11/21 19:20 Antibody Screen Negative 06/11/21 19:20 Crossmatch See Detail 06/11/21 19:20 Microbiology: Microbiology 06/12/21 09:40 Peripheral/Venous Blood Culture - Preliminary NO GROWTH AFTER 48 HOURS 06/12/21 09:40 Peripheral/Venous Blood Culture - Preliminary NO GROWTH AFTER 48 HOURS Lujan/IV: Voiding Method Indwelling Catheter Active Medications - Current Medications Current Medications: Generic Name Dose Route Start Last Admin Trade Name Freq PRN Reason Stop Dose Admin Famotidine 20 mg 06/12/21 10:00 06/14/21 10:39 Famotidine 20 Mg/2 Ml Inj IV 20 mg BID JOLENE Administration Fentanyl 50 mcg 06/11/21 22:55 Fentanyl 100 Mcg/2 Ml Inj IV Q10MIN PRN ANALGESIA Hydromorphone HCl 0.5 mg 06/11/21 20:42 Hydromorphone 1 Mg/1 Ml Inj IV Q3H PRN Pain , Severe (7-10) Midazolam DRIP Premix 100 mg in 100 mls @ 1 mls/hr 06/11/21 23:00 06/14/21 11:58 Midazolam/Ns 100 Mg/100 Ml IV 4 mg/hr TITR JOLENE 4 mls/hr Titration Protocol 1 MG/HR Fentanyl Citrate 2,000 mcg in 100 mls @ 5.466 mls/hr 06/11/21 23:00 06/14/21 13:37 Fentanyl Drip Premix IV 4 mcg/kg/hr TITR JOLENE 21.863 mls/hr Administration Protocol 1 MCG/KG/HR Phenylephrine HCl 100 mg/ 100 mls @ 3 mls/hr 06/11/21 23:45 06/14/21 07:00 Sodium Chloride IV 0 mcg/min TITR JOLENE 0 mls/hr Titration Protocol 50 MCG/MIN NORepinephrine/NS 8 MG-250 ML 8 mg in 250 mls @ 3.75 mls/hr 06/12/21 02:00 06/14/21 05:56 Norepinephrine/Ns 8 Mg-250 Ml (Double Conc) IV 0 mcg/min TITRATE JOLENE 0 mls/hr Titration Protocol 2 MCG/MIN Propofol 1,000 mg in 100 mls @ 3.279 mls/hr 06/12/21 03:00 06/14/21 11:58 Diprivan 10 Mg/Ml IV 0 mcg/kg/min TITR JOLENE 0 mls/hr Titration Protocol 5 MCG/KG/MIN Piperacillin Sod/Tazobactam Sod 4.5 gm in 100 mls @ 200 mls/hr 06/14/21 12:00 06/14/21 13:36 Zosyn/Ns 4.5gm/100ml IV 200 mls/hr Q6HR JOLENE Administration Protocol Lactated Ringer's 1,000 mls @ 999 mls/hr 06/14/21 12:00 Lactated Ringers IV 06/15/21 13:01 DIRECT JOLENE Insulin Human Lispro 0 unit 06/12/21 12:00 06/14/21 15:23 Insulin Lispro 100 Unit/Ml SUB-Q Not Given Q6HR JOLENE Protocol Methylprednisolone Sodium Succinate 125 mg 06/11/21 22:00 06/14/21 13:36 Methylprednisolone Sod Succinate 125 Mg/2 Ml Inj IV 125 mg Q8HR JOLENE Administration Metoclopramide HCl 10 mg 06/11/21 20:42 Metoclopramide 10 Mg/2 Ml Inj IV Q6H PRN Nausea And Vomiting Ondansetron HCl 4 mg 06/11/21 20:42 Ondansetron 4 Mg/2 Ml Inj IV Q3H PRN Nausea And Vomiting Sodium Chloride 10 ml 06/11/21 22:00 06/14/21 10:40 Sodium Chloride 0.9% 10 Ml Flush Syringe IV 10 ml BID JOLENE Administration Sodium Chloride 10 ml 06/11/21 20:42 Sodium Chloride 0.9% 10 Ml Flush Syringe IV PRN PRN LINE FLUSH <EDILBERTO LUCIANO - Last Filed: 06/17/21 12:02> Assessment and Plan Assessment and plan: I saw and evaluated the patient. Discussed with the nurse practitioner and agree with their findings and plan as documented in this note. Hospitalist Physical - Constitutional Vitals: Temp Pulse Resp BP Pulse Ox 97.7 F 52 L 16 132/58 98 06/17/21 08:00 06/17/21 11:15 06/17/21 11:15 06/17/21 11:15 06/17/21 11:15 HEART Score - HEART Score Troponin: Troponin T < 0.010 ng/mL (0.00-0.029) 06/11/21 23:21 Results - Labs CBC & Chem 7: 06/17/21 05:30 06/17/21 05:30 Labs: Laboratory Last Values WBC 7.6 K/mm3 (4.5-11.0) 06/17/21 05:30 RBC 3.17 M/mm3 (3.65-5.03) L 06/17/21 05:30 Hgb 8.2 gm/dl (10.1-14.3) L 06/17/21 05:30 Hct 25.5 % (30.3-42.9) L 06/17/21 05:30 MCV 80 fl (79-97) 06/17/21 05:30 MCH 26 pg (28-32) L 06/17/21 05:30 MCHC 32 % (30-34) 06/17/21 05:30 RDW 21.2 % (13.2-15.2) H 06/17/21 05:30 Plt Count 128 K/mm3 (140-440) L 06/17/21 05:30 Lymph % (Auto) 9.2 % (13.4-35.0) L 06/11/21 19:29 [place] % (Auto) 1.4 % (0.0-7.3) 06/11/21 19: Eos % (Auto) 0.2 % (0.0-4.3) 06/11/21 19: Baso % (Auto) 0.2 % (0.0-1.8) 06/11/21 19: Lymph # (Auto) 1.4 K/mm3 (1.2-5.4) 06/11/21 19: [place] # (Auto) 0.2 K/mm3 (0.0-0.8) 06/11/21 19: Eos # (Auto) 0.0 K/mm3 (0.0-0.4) 06/11/21 19: Baso # (Auto) 0.0 K/mm3 (0.0-0.1) 06/11/21 19:29 Add Manual Diff Complete 06/13/21 Unknown Total Counted 100 06/13/21 Unknown Seg Neutrophils % 89.0 % (40.0-70.0) H 06/11/21 19:29 Seg Neuts % (Manual) 88.0 % (40.0-70.0) H 06/13/21 Unknown Band Neutrophils % 2.0 % 06/13/21 Unknown Lymphocytes % (Manual) 4.0 % (13.4-35.0) L 06/13/21 Unknown Reactive Lymphs % (Man) 0 % 06/13/21 Unknown Monocytes % (Manual) 6.0 % (0.0-7.3) 06/13/21 Unknown Eosinophils % (Manual) 0 % (0.0-4.3) 06/13/21 Unknown Basophils % (Manual) 0 % (0.0-1.8) 06/13/21 Unknown Metamyelocytes % 0 % 06/13/21 Unknown Myelocytes % 0 % 06/13/21 Unknown Promyelocytes % 0 % 06/13/21 Unknown Blast Cells % 0 % 06/13/21 Unknown Nucleated RBC % Not Reportable 06/13/21 Unknown Seg Neutrophils # 14.0 K/mm3 (1.8-7.7) H 02/08/22 19:29 Seg Neutrophils # Man 19.8 K/mm3 (1.8-7.7) H 06/13/21 Unknown Band Neutrophils # 0.5 K/mm3 06/13/21 Unknown Lymphocytes # (Manual) 0.9 K/mm3 (1.2-5.4) L 06/13/21 Unknown Abs React Lymphs (Man) 0.0 K/mm3 06/13/21 Unknown Monocytes # (Manual) 1.4 K/mm3 (0.0-0.8) H 06/13/21 Unknown Eosinophils # (Manual) 0.0 K/mm3 (0.0-0.4) 06/13/21 Unknown Basophils # (Manual) 0.0 K/mm3 (0.0-0.1) 06/13/21 Unknown Metamyelocytes # 0.0 K/mm3 06/13/21 Unknown Myelocytes # 0.0 K/mm3 06/13/21 Unknown Promyelocytes # 0.0 K/mm3 06/13/21 Unknown Blast Cells # 0.0 K/mm3 06/13/21 Unknown WBC Morphology Not Reportable 06/13/21 Unknown Hypersegmented Neuts Not Reportable 06/13/21 Unknown Hyposegmented Neuts Not Reportable 06/13/21 Unknown Hypogranular Neuts Not Reportable 06/13/21 Unknown Smudge Cells Not Reportable 06/13/21 Unknown Toxic Granulation 2+ 06/13/21 Unknown Toxic Vacuolation Not Reportable 06/13/21 Unknown Dohle Bodies Not Reportable 06/13/21 Unknown Pelger-Huet Anomaly Not Reportable 06/13/21 Unknown Dennis Rods Not Reportable 06/13/21 Unknown Platelet Estimate Consistent w auto 06/13/21 Unknown Clumped Platelets Not Reportable 06/13/21 Unknown Plt Clumps, EDTA Not Reportable 06/13/21 Unknown Large Platelets Not Reportable 06/13/21 Unknown Giant Platelets Not Reportable 06/13/21 Unknown Platelet Satelliting Not Reportable 06/13/21 Unknown Plt Morphology Comment Not Reportable 06/13/21 Unknown RBC Morphology Not Reportable 06/13/21 Unknown Dimorphic RBCs Not Reportable 06/13/21 Unknown Polychromasia Few 06/13/21 Unknown Hypochromasia 2+ 06/13/21 Unknown Poikilocytosis Not Reportable 06/13/21 Unknown Anisocytosis 1+ 06/13/21 Unknown Microcytosis Not Reportable 06/13/21 Unknown Macrocytosis Not Reportable 06/13/21 Unknown Spherocytes Not Reportable 06/13/21 Unknown Pappenheimer Bodies Not Reportable 06/13/21 Unknown Sickle Cells Not Reportable 06/13/21 Unknown Target Cells Not Reportable 06/13/21 Unknown Tear Drop Cells Not Reportable 06/13/21 Unknown Ovalocytes Not Reportable 06/13/21 Unknown Stomatocytes Few 06/12/21 01:45 Helmet Cells Not Reportable 06/13/21 Unknown [place] Bodies Not Reportable 06/13/21 Unknown Mobile Rings Not Reportable 06/13/21 Unknown [place] Cells Not Reportable 06/13/21 Unknown Bite Cells Not Reportable 06/13/21 Unknown Crenated Cell Not Reportable 06/13/21 Unknown Elliptocytes Not Reportable 06/13/21 Unknown Acanthocytes (Spur) Not Reportable 06/13/21 Unknown Rouleaux Not Reportable 06/13/21 Unknown Hemoglobin C Crystals Not Reportable 06/13/21 Unknown Schistocytes Not Reportable 06/13/21 Unknown Malaria parasites Not Reportable 06/13/21 Unknown Edin Bodies Not Reportable 06/13/21 Unknown Hem Pathologist Commnt No 06/13/21 Unknown PT 17.6 Sec. (12.2-14.9) H 06/13/21 Unknown INR 1.31 (0.87-1.13) H 06/13/21 Unknown APTT 26.4 Sec. (24.2-36.6) 06/13/21 Unknown Fibrinogen 546 mg/dl (211-480) H 06/13/21 Unknown D-Dimer 1244.63 ng/mlDDU (0-234) H 06/13/21 Unknown ABG pH 7.479 pH Units (7.350-7.450) H 06/17/21 04:50 POC ABG pCO2 25.6 mmHg (32.0-48.0) L 06/13/21 04:31 ABG pCO2 31.1 mm Hg 06/17/21 04:50 POC ABG pO2 138.8 mmHg (83-108) H 06/13/21 04:31 ABG pO2 143.1 mm Hg (80.0-90.0) H 06/17/21 04:50 POC ABG HCO3 21.4 06/13/21 04:31 ABG HCO3 22.6 mmol/L (20.0-26.0) 06/17/21 04:50 ABG O2 Saturation 98.9 % (95.0-99.0) 06/17/21 04:50 ABG O2 Content 14.0 (0.0-44) 06/17/21 04:50 POC ABG Base Excess -0.7 06/13/21 04:31 ABG Base Excess -0.4 mmol/L (-2.0-3.0) 06/17/21 04:50 ABG Hemoglobin 10.0 gm/dl (12.0-16.0) L 06/17/21 04:50 ABG Oxyhemoglobin 98.1 (94-98) H 06/13/21 04:31 ABG Carboxyhemoglobin 1.1 % (0.0-5.0) 06/17/21 04:50 ABG Methemoglobin 0.5 % (0.0-1.5) 06/17/21 04:50 Oxyhemoglobin 97.2 % (95.0-99.0) 06/17/21 04:50 Carboxyhemoglobin 0.8 (0.5-1.5) 06/13/21 04:31 FiO2 40 % 06/17/21 04:50 FiO2 % 40.0 06/13/21 04:31 Sodium 148 mmol/L (137-145) H 06/17/21 05:30 Potassium 3.7 mmol/L (3.6-5.0) 06/17/21 05:30 Chloride 113.7 mmol/L (98-107) H 06/17/21 05:30 Carbon Dioxide 20 mmol/L (22-30) L 06/17/21 05:30 Anion Gap 18 mmol/L 06/17/21 05:30 BUN 57 mg/dL (7-17) H 06/17/21 05:30 Creatinine 1.4 mg/dL (0.6-1.2) H 06/17/21 05:30 Estimated GFR 44 ml/min 06/17/21 05:30 BUN/Creatinine Ratio 41 % 06/17/21 05:30 Glucose 351 mg/dL (65-100) H 06/17/21 05:30 POC Glucose 305 mg/dL (70-105) H 06/17/21 11:49 Lactic Acid 5.30 mmol/L (0.7-2.0) H* 06/13/21 15:45 Calcium 8.0 mg/dL (8.4-10.2) L 06/17/21 05:30 Phosphorus 2.30 mg/dL (2.5-4.5) L 06/17/21 05:30 Magnesium 2.30 mg/dL (1.7-2.3) 06/17/21 05:30 Total Bilirubin 0.40 mg/dL (0.1-1.2) 06/15/21 03:56 AST 64 units/L (5-40) H 06/15/21 03:56 ALT 106 units/L (7-56) H 06/15/21 03:56 Alkaline Phosphatase 55 units/L (35-129) 06/15/21 03:56 Troponin T < 0.010 ng/mL (0.00-0.029) 06/11/21 23:21 C-Reactive Protein 3.30 mg/dL (0.00-1.30) H 06/16/21 04:32 Total Protein 5.1 g/dL (6.3-8.2) L 06/15/21 03:56 Albumin 2.9 g/dL (3.9-5) L 06/15/21 03:56 Albumin/Globulin Ratio 1.3 % 06/15/21 03:56 Triglycerides 189 mg/dL (2-149) H 06/14/21 06:15 Urine Color Yellow (Yellow) 06/12/21 17:00 Urine Turbidity Clear (Clear) 06/12/21 17:00 Urine pH 5.0 (5.0-7.0) 06/12/21 17:00 Ur Specific [place] 1.035 (1.003-1.030) H 06/12/21 17:00 Urine Protein 30 mg/dl mg/dL (Negative) 06/12/21 17:00 Urine Glucose (UA) 50 mg/dL (Negative) 06/12/21 17:00 Urine Ketones Tr mg/dL (Negative) 06/12/21 17:00 Urine Blood Neg (Negative) 06/12/21 17:00 Urine Nitrite Neg (Negative) 06/12/21 17:00 Urine Bilirubin Neg (Negative) 06/12/21 17:00 Urine Urobilinogen < 2.0 mg/dL (<2.0) 06/12/21 17:00 Ur Leukocyte Esterase Neg (Negative) 06/12/21 17:00 Urine WBC (Auto) < 1.0 /HPF (0.0-6.0) 06/12/21 17:00 Urine RBC (Auto) < 1.0 /HPF (0.0-6.0) 06/12/21 17:00 Urine Creatinine 81.1 mg/dL (0.1-20.0) H 06/15/21 10:40 Urine Sodium 42 mmol/L 06/15/21 10:40 Coronavirus (PCR) Negative (Negative) 06/12/21 09:50 Blood Type O POSITIVE 06/11/21 19:20 Antibody Screen Negative 06/11/21 19:20 Crossmatch See Detail 06/11/21 19:20 Microbiology: Microbiology 06/12/21 09:40 Peripheral/Venous Blood Culture - Final NO GROWTH AFTER 5 DAYS 06/12/21 09:40 Peripheral/Venous Blood Culture - Final NO GROWTH AFTER 5 DAYS Lujan/IV: Voiding Method Indwelling Catheter Active Medications - Current Medications Current Medications: Generic Name Dose Route Start Last Admin Trade Name Freq PRN Reason Stop Dose Admin Famotidine 10 mg 06/15/21 22:00 06/16/21 21:02 Famotidine 20 Mg/2 Ml Inj IV 10 mg BID JOLENE Administration Fentanyl 50 mcg 06/11/21 22:55 06/15/21 16:50 Fentanyl 100 Mcg/2 Ml Inj IV 50 mcg Q10MIN PRN Administration ANALGESIA Hydralazine HCl 10 mg 06/16/21 08:00 06/17/21 05:29 Hydralazine 20 Mg/1 Ml Inj IV 10 mg Q4H PRN Administration Hypertension Hydromorphone HCl 0.5 mg 06/11/21 20:42 Hydromorphone 1 Mg/1 Ml Inj IV Q3H PRN Pain , Severe (7-10) Midazolam DRIP Premix 100 mg in 100 mls @ 1 mls/hr 06/11/21 23:00 06/15/21 17:34 Midazolam/Ns 100 Mg/100 Ml IV 0 mg/hr TITR JOLENE 0 mls/hr Titration Protocol 1 MG/HR Fentanyl Citrate 2,000 mcg in 100 mls @ 5.466 mls/hr 06/11/21 23:00 06/17/21 11:04 Fentanyl Drip Premix IV 4 mcg/kg/hr TITR JOLENE 21.863 mls/hr Titration Protocol 1 MCG/KG/HR Phenylephrine HCl 100 mg/ 100 mls @ 3 mls/hr 06/11/21 23:45 06/14/21 07:00 Sodium Chloride IV 0 mcg/min TITR JOLENE 0 mls/hr Titration Protocol 50 MCG/MIN NORepinephrine/NS 8 MG-250 ML 8 mg in 250 mls @ 3.75 mls/hr 06/12/21 02:00 06/14/21 05:56 Norepinephrine/Ns 8 Mg-250 Ml (Double Conc) IV 0 mcg/min TITRATE JOLENE 0 mls/hr Titration Protocol 2 MCG/MIN Propofol 1,000 mg in 100 mls @ 3.279 mls/hr 06/12/21 03:00 06/17/21 12:00 Diprivan 10 Mg/Ml IV 40 mcg/kg/min TITR JOLENE 26.236 mls/hr Titration Protocol 5 MCG/KG/MIN Piperacillin Sod/Tazobactam Sod 3.375 gm in 50 mls @ 100 mls/hr 06/15/21 12:00 06/17/21 05:30 Zosyn/Ns 3.375gm/50ml IV 100 mls/hr Q6HR JOLENE Administration Amino Acids/Electrolytes/Dextrose 1,999.92 mls @ 83.33 mls/hr 06/16/21 20:00 06/16/21 20:45 Tpn Adult IV 06/17/21 19:59 83.33 mls/hr DAILY@2000 [facility] Administration Protocol Insulin Glargine 15 units 06/17/21 10:00 06/17/21 11:00 Insulin Glargine 100 Units/Ml SUB-Q 15 units BID JOLENE Administration Insulin Human Lispro 0 unit 06/12/21 12:00 06/17/21 05:32 Insulin Lispro 100 Unit/Ml SUB-Q 8 unit Q6HR JOLENE Administration Protocol Methylprednisolone Sodium Succinate 125 mg 06/11/21 22:00 06/17/21 05:28 Methylprednisolone Sod Succinate 125 Mg/2 Ml Inj IV 125 mg Q8HR JOLENE Administration Metoclopramide HCl 10 mg 06/11/21 20:42 Metoclopramide 10 Mg/2 Ml Inj IV Q6H PRN Nausea And Vomiting Ondansetron HCl 4 mg 06/11/21 20:42 Ondansetron 4 Mg/2 Ml Inj IV Q3H PRN Nausea And Vomiting Sodium Chloride 10 ml 06/11/21 22:00 06/16/21 21:05 Sodium Chloride 0.9% 10 Ml Flush Syringe IV 10 ml BID JOLENE Administration Sodium Chloride 10 ml 06/11/21 20:42 Sodium Chloride 0.9% 10 Ml Flush Syringe IV PRN PRN LINE FLUSH Nutrition/Malnutrition Assess - Dietary Evaluation Nutrition/Malnutrition Findings: Nutrition Notes Start: 06/16/21 12:10 Freq: Status: Active Protocol: Document 06/16/21 12:10 BRITNI (Rec: 06/16/21 12:35 [facility] [id number]) Nutrition Notes Need for Assessment generated from: MD Order Initial or Follow up Assessment Current Diagnosis Diabetes,Sepsis,Hypertension, Respiratory Failure Other Pertinent Diagnosis Jeremiah's angina, (R) pneumothorax, Coagulopathy, s/ p cardiac arrest, gout Current Diet No diet ordered Labs/Tests Na 148 K 3.3 Cl 115.1 CO2 - 21 BUN 54 Cr 1.6 BG 367 Ca 7.4 (adjusted 8.3) Pertinent Medications Clinimix ordered yesterday (4. 25% amino acids/10% dextrose at 84ml/hr), Lantus, Humalog, Solumedrol, Propofol at 3. 279ml/hr (provides 87 kcal) Height 5 ft 8 in Weight 109.316 kg [place] Body Weight (kg) 63.63 BMI 36.6 Weight Status Obese Subjective/Other Information RD consulted for TPN. Pt on vent support; difficult intubation requiring cricothyrotomy. Endotracheal tube was sutured in. MD does not want to insert OGT/NGT at this time given current situation with the neck. Pt will likely need a trach and PEG. PICC line ordered. Percent of energy/protein needs met: 52% energy 68% pro (from Clinimix) Burn Absent Trauma Absent Minimum of two criteria No #1 Nutrition Diagnosis Inadequate oral intake Etiology mech ventilation As Evidenced by Signs and Symptoms pt NPO Is patient on ventilator? Yes Is Patient Ambulatory and/or Out of Bed No REE-([facility]-confined to bed) [phone] Calculation Used for Recommendations 65-70% energy needs Additional Notes Energy needs: 1280-1379kcal/ day Pro needs 2g/kg IBW: 127g/day Fluid needs 1ml/kcal Nutrition Intervention Nutrition Support: Start PN at 83.33ml/hr: MVI, thiamine, 5% dextrose, 4.3% amino acids, 0mEq Na, 80mEq K, 0mEq Mg, 10mEq Ca, 20mmol Phos, 0% chloride/100% acetate . Osmolality: 765. Kcal 680 Protein (gm) 85 Carbohydrates (gm) 100 Fat (gm) 0 Fluid (mL) 2,000 Fiber (gm) 0 Goal #1 PN to meet nutrient needs as best possible Anticipated Discharge Needs: Unable to identify at this time Follow-Up By: 06/17/21 Additional Comments Labs in am: BMP, Mg, Phos F/U: vent status, trach/PEG placement, propofol, PICC line placement
[2021-06-14 17:54] LABS: ABG HCO3 21.3 mmol/L (20.0-26.0); ABG Methemoglobin 0.6 % (0.0-1.5); ABG Oxygen Saturation 95.3 % (95.0-99.0); ABG PCO2 45.1 mm Hg; ABG PH 7.292 pH Units (7.350-7.450); ABG PO2 78.8 mm Hg (80.0-90.0)
[2021-06-14] MEDS ORDERED: ATROPINE 0.1% (1 MG/10 ML) CARDIAC SYRINGE ONE (20:00)
[2021-06-14] MEDS ORDERED: CALCIUM CHLORIDE 1,000 MG/10 ML SYRINGE IV ONE (20:00)
[2021-06-14] MEDS ORDERED: SODIUM BICARB 8.4% 50 MEQ/50 ML SYRINGE IV ONE (20:00)
[2021-06-14] MEDS ORDERED: EPINEPHrine 1 MG/10 ML SYRINGE ONE (20:00)
[2021-06-15] MEDS: INSULIN LISPRO 100 UNIT/ML SUB-Q SCH ×7 (00:44→23:29)
[2021-06-15 01:40] LABS: Hematocrit 26.1 % (30.3-42.9); Hemoglobin 8.4 gm/dl (10.1-14.3); Mean Corpuscular HGB Conc 32 % (30-34); Mean Corpuscular Volume 81 fl (79-97); Platelet Count 105 K/mm3 (140-440); Red Blood Count 3.21 M/mm3 (3.65-5.03)
[2021-06-15 01:45] LABS: Red Cell Distribution Width 21.3 % (13.2-15.2)
--- NOTE | 2021-06-15 03:40 | XRay Report ---
CHEST 1 VIEW INDICATION / CLINICAL INFORMATION: Pneumothorax f/u. COMPARISON: Chest x-ray 06/14/2021 FINDINGS: SUPPORT DEVICES: The right-sided thoracostomy tube and endotracheal tube appear stable in position. HEART / MEDIASTINUM: No significant interval change LUNGS / PLEURA: Minimal opacities right lung base unchanged. Minimal left perihilar opacities. No sig nificant pneumothorax. ADDITIONAL FINDINGS: Decrease in the amount of subcutaneous emphysema overlying the right chest wall. IMPRESSION: 1. No significant change in the appearance of the lungs. No significant right pneumothorax. 2. Decrease in subcutaneous emphysema overlying the right chest wall. Signer Name: Raza Alfonso II, MD Signed: 06/15/2021 3:36 AM Workstation Name: [id number]
[2021-06-15 04:25] LABS: Hematocrit 25.8 % (30.3-42.9); Hemoglobin 8.4 gm/dl (10.1-14.3)
[2021-06-15 04:54] LABS: Albumin 2.9 g/dL (3.9-5); Calcium 7.3 mg/dL (8.4-10.2)
[2021-06-15] MEDS: PIPERACIL/TAZOBACTA 4.5/NS 100 4.5 GM/100 ML VIAL IV SCH (05:38)
[2021-06-15] MEDS: methylPREDNISolone Sod Succinate 125 MG/2 ML INJ IV SCH ×3 (05:39→21:06)
[2021-06-15 05:57] LABS: ABG Base Excess -1.6 mmol/L (-2.0-3.0); ABG HCO3 21.7 mmol/L (20.0-26.0); ABG Methemoglobin 0.5 % (0.0-1.5); ABG Oxygen Saturation 98.3 % (95.0-99.0); ABG PCO2 30.9 mm Hg; ABG PH 7.465 pH Units (7.350-7.450); ABG PO2 114.1 mm Hg (80.0-90.0)
[2021-06-15] MEDS: FAMOTIDINE 20 MG/2 ML INJ IV SCH ×2 (10:07→21:06)
[2021-06-15] MEDS ORDERED: LACTATED RINGERS 1,000 ML IV ONE ×2 (10:31→14:12)
--- NOTE | 2021-06-15 10:35 | Progress Note ---
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 06/15/21: Hopeful with worsening renal function ( likely from code on yesterday) that sedatives are just lingering from that. Still making good urine but output has fallen off. Will send urine sodium and urine cr to check Fena. Most likely this is prerenal. ordered renal ultrasound as well. Continue abx and steroids. Will start clinimix today. This should help with the free water piece. Will give another liter bolus of LR right now. Keep sedation off for now. Guarded prognosis. 06/14/21: Will discuss with surgery future plans. They have ordered steroids to help with inflammation and abx continue. All others appears stable and no acute evidence of bleeding at this time. Follow up surgery recs if any new ones. Guarded prognosis. 06/13/21: Patient to back to OR today. BLood transfusion. Will send DIC panel and may need to given cryo if over 6 units of PRBC's given. Patient will likely need trach and peg as we need to address nutrition. Chest tube placed, large bore now. Patient now with right sided effusion. Hemothorax???. Will continue to monitor output. Needs picc line as femoral should come out soon. Continue pressors. Continue sedation for pain control and comfort. Guarded prognosis. Surgery comfortable with neck and current situation so they have not request transfer. 1. Placed right femoral central line. pressors can run through this. 2. Repeat chemistry stat given bicarb of 8 and blood sugar of greater than 600. Ordering FSBS now. Earlier bicarb was 25. If accurate will need bicarb drip and vasopressin but not sure as pH on blood gas was normal done around the same time. 3. Coagulopathy is improving. INR down to 4.55 and PTT and pT improving. Will continue to give FFP. Ordered more vitamin K. H/H is stable but patient is oozing from neck and mouth. 4. Vasopressor for blood pressure. Need to keep map 65 and greater 5. Lujan is needed for accurate I/O 6. Surgery called by [facility] about current CT situation. They state they will reassess in the am. I have reviewed the images myself. If I can position the patient safely without compromising the airway after adequate sedation, may consider placing chest tube now as INR is better and FFP is hanging. Patient is morbidly obese so shits could move the ET tube so if not safe, will wait until surgery comes in the morning. 7. Would not attempt to pass OG or NG tube given current situation in neck 8. Will discuss with surgery tomorrow but I feel this patient should be transferred to a tertiary care facility with ENT as we do not have that service here. CCT 31 minutes. Subjective Date of service: 06/15/21 Interval history: Off all sedation. Opened eyes when name called but not following commands. No ABG this am, but sat is 100 on 50%. Objective Vital Signs - 12hr 06/14/21 06/14/21 06/14/21 22:35 22:41 22:45 Temperature Pulse Rate 55 L 55 L 53 L Pulse Rate [ From Monitor] Respiratory 19 22 17 Rate Blood Pressure 127/67 127/67 132/70 O2 Sat by Pulse 100 100 100 Oximetry 06/14/21 06/14/21 06/14/21 22:47 22:51 22:55 Temperature Pulse Rate 54 L 52 L 60 Pulse Rate [ From Monitor] Respiratory 22 22 11 L Rate Blood Pressure 132/70 132/70 132/70 O2 Sat by Pulse 100 100 100 Oximetry 06/14/21 06/14/21 06/14/21 23:00 23:05 23:11 Temperature Pulse Rate 58 L 53 L 51 L Pulse Rate [ From Monitor] Respiratory 22 22 22 Rate Blood Pressure 132/70 138/72 138/72 O2 Sat by Pulse 100 100 100 Oximetry 06/14/21 06/14/21 06/14/21 23:15 23:17 23:18 Temperature Pulse Rate 60 51 L 51 L Pulse Rate [ 52 L From Monitor] Respiratory 22 22 22 Rate Blood Pressure 130/73 130/73 O2 Sat by Pulse 100 100 100 Oximetry 06/14/21 06/14/21 06/14/21 23:21 23:25 23:30 Temperature Pulse Rate 53 L 54 L 51 L Pulse Rate [ From Monitor] Respiratory 22 22 22 Rate Blood Pressure 130/73 130/73 130/65 O2 Sat by Pulse 100 100 100 Oximetry 06/14/21 06/14/21 06/14/21 23:35 23:41 23:45 Temperature Pulse Rate 55 L 50 L 70 Pulse Rate [ From Monitor] Respiratory 22 22 18 Rate Blood Pressure 130/65 130/65 125/77 O2 Sat by Pulse 100 100 100 Oximetry 06/14/21 06/14/21 06/15/21 23:51 23:55 00:00 Temperature 96.1 F L Pulse Rate 54 L 64 49 L Pulse Rate [ From Monitor] Respiratory 22 22 22 Rate Blood Pressure 125/77 125/77 134/67 O2 Sat by Pulse 100 100 100 Oximetry 06/15/21 06/15/21 06/15/21 00:05 00:11 00:15 Temperature Pulse Rate 50 L 51 L 52 L Pulse Rate [ From Monitor] Respiratory 16 22 22 Rate Blood Pressure 134/67 134/67 133/64 O2 Sat by Pulse 100 100 100 Oximetry 06/15/21 06/15/21 06/15/21 00:21 00:25 00:30 Temperature Pulse Rate 52 L 52 L 63 Pulse Rate [ From Monitor] Respiratory 22 22 17 Rate Blood Pressure 133/64 133/64 132/67 O2 Sat by Pulse 100 100 100 Oximetry 06/15/21 06/15/21 06/15/21 00:35 00:41 00:45 Temperature Pulse Rate 56 L 54 L 51 L Pulse Rate [ From Monitor] Respiratory 22 22 22 Rate Blood Pressure 132/67 132/67 135/67 O2 Sat by Pulse 100 100 100 Oximetry 06/15/21 06/15/21 06/15/21 00:57 01:00 01:15 Temperature Pulse Rate 50 L 52 L 52 L Pulse Rate [ From Monitor] Respiratory 22 22 Rate Blood Pressure 135/67 135/65 130/63 O2 Sat by Pulse 100 100 100 Oximetry 06/15/21 06/15/21 06/15/21 01:30 01:45 02:00 Temperature Pulse Rate 50 L 51 L 53 L Pulse Rate [ From Monitor] Respiratory 22 22 22 Rate Blood Pressure 132/65 135/68 132/64 O2 Sat by Pulse 100 100 100 Oximetry 06/15/21 06/15/21 06/15/21 02:15 02:30 02:46 Temperature Pulse Rate 56 L 54 L 63 Pulse Rate [ From Monitor] Respiratory 22 22 22 Rate Blood Pressure 144/69 145/69 145/69 O2 Sat by Pulse 100 100 100 Oximetry 06/15/21 06/15/21 06/15/21 03:00 03:15 03:30 Temperature Pulse Rate 54 L 57 L 63 Pulse Rate [ From Monitor] Respiratory 22 19 22 Rate Blood Pressure 131/64 147/73 149/75 O2 Sat by Pulse 100 100 100 Oximetry 06/15/21 06/15/21 06/15/21 03:45 03:58 04:00 Temperature 99.2 F Pulse Rate 53 L 54 L 55 L Pulse Rate [ 53 L From Monitor] Respiratory 22 22 Rate Blood Pressure 133/65 134/70 O2 Sat by Pulse 100 100 Oximetry 06/15/21 06/15/21 06/15/21 04:15 04:30 04:46 Temperature Pulse Rate 51 L 55 L 54 L Pulse Rate [ From Monitor] Respiratory 22 17 20 Rate Blood Pressure 132/65 145/70 132/72 O2 Sat by Pulse 100 100 100 Oximetry 06/15/21 06/15/21 06/15/21 05:00 05:16 05:30 Temperature Pulse Rate 57 L 57 L 51 L Pulse Rate [ From Monitor] Respiratory 22 16 15 Rate Blood Pressure 145/68 145/71 143/66 O2 Sat by Pulse 100 100 100 Oximetry 06/15/21 06/15/21 06/15/21 05:45 06:00 06:15 Temperature Pulse Rate 61 50 L 53 L Pulse Rate [ From Monitor] Respiratory 19 22 22 Rate Blood Pressure 148/75 148/72 149/72 O2 Sat by Pulse 100 100 100 Oximetry 06/15/21 06/15/21 06/15/21 06:30 06:45 07:00 Temperature Pulse Rate 56 L 50 L 54 L Pulse Rate [ From Monitor] Respiratory 22 22 22 Rate Blood Pressure 150/70 153/73 152/72 O2 Sat by Pulse 100 100 100 Oximetry 06/15/21 06/15/21 06/15/21 07:15 07:30 07:45 Temperature Pulse Rate 51 L 46 L 56 L Pulse Rate [ From Monitor] Respiratory 22 22 22 Rate Blood Pressure 156/76 156/75 155/76 O2 Sat by Pulse 100 100 100 Oximetry 06/15/21 06/15/21 06/15/21 08:00 08:16 08:30 Temperature 98.3 F Pulse Rate 52 L 46 L 52 L Pulse Rate [ 55 L From Monitor] Respiratory 21 22 22 Rate Blood Pressure 155/77 155/71 145/75 O2 Sat by Pulse 100 100 100 Oximetry 06/15/21 06/15/21 06/15/21 08:45 09:00 09:15 Temperature Pulse Rate 54 L 55 L 51 L Pulse Rate [ From Monitor] Respiratory Rate Blood Pressure 151/76 148/79 145/70 O2 Sat by Pulse 100 100 100 Oximetry 06/15/21 09:45 Temperature Pulse Rate 51 L Pulse Rate [ From Monitor] Respiratory Rate Blood Pressure 156/74 O2 Sat by Pulse 100 Oximetry Constitutional: alert, appears uncomfortable Eyes: non-icteric ENT: other (patient with blood oozing from mouth but not able to open it volun tarily) Neck: other (covered in dressing, ET tube is anterior but I am not moving secondary to instability) Ascultation: Bilateral: clear Percussion: Bilateral: not dull Cardiovascular: regular rate and rhythm Gastrointestinal: normoactive bowel sounds, soft Extremities: no edema Neurologic: normal mental status CBC and BMP: 06/15/21 Unknown 06/15/21 03:56 ABG, PT/INR, D-dimer: ABG ABG pH 7.465 pH Units (7.350-7.450) H 06/15/21 Unknown POC ABG pCO2 25.6 mmHg (32.0-48.0) L 06/13/21 04:31 ABG pCO2 30.9 mm Hg 06/15/21 Unknown POC ABG pO2 138.8 mmHg (83-108) H 06/13/21 04:31 ABG pO2 114.1 mm Hg (80.0-90.0) H 06/15/21 Unknown POC ABG HCO3 21.4 06/13/21 04:31 ABG O2 Saturation 98.3 % (95.0-99.0) 06/15/21 Unknown PT/INR, D-dimer PT 17.6 Sec. (12.2-14.9) H 06/13/21 Unknown INR 1.31 (0.87-1.13) H 06/13/21 Unknown D-Dimer 1244.63 ng/mlDDU (0-234) H 06/13/21 Unknown Abnormal lab findings: Abnormal Labs 06/11/21 06/11/21 06/11/21 15:23 15:23 19:20 WBC 12.0 H RBC Hgb Hct MCV 72 L MCH 21 L RDW 17.5 H Plt Count Lymph % (Auto) 12.9 L [place] % (Auto) 8.6 H [place] # (Auto) 1.0 H Seg Neutrophils % 77.4 H Seg Neuts % (Manual) Lymphocytes % (Manual) Monocytes % (Manual) Seg Neutrophils # 9.3 H Seg Neutrophils # Man Lymphocytes # (Manual) Monocytes # (Manual) PT INR APTT Fibrinogen D-Dimer ABG pH POC ABG pCO2 POC ABG pO2 ABG pO2 ABG HCO3 ABG O2 Saturation ABG Base Excess ABG Hemoglobin ABG Oxyhemoglobin Oxyhemoglobin Sodium Potassium Chloride Carbon Dioxide BUN Creatinine Glucose 144 H POC Glucose Lactic Acid Calcium AST ALT Alkaline Phosphatase Total Protein Albumin Triglycerides Ur Specific [place] Crossmatch See Detail 06/11/21 06/11/21 06/11/21 19:29 19:29 23:21 WBC 15.8 H RBC Hgb 9.4 L Hct MCV 72 L MCH 22 L RDW 17.4 H Plt Count Lymph % (Auto) 9.2 L [place] % (Auto) [place] # (Auto) Seg Neutrophils % 89.0 H Seg Neuts % (Manual) Lymphocytes % (Manual) Monocytes % (Manual) Seg Neutrophils # 14.0 H Seg Neutrophils # Man Lymphocytes # (Manual) Monocytes # (Manual) PT 72.9 H INR 8.18 H* APTT 71.7 H* Fibrinogen D-Dimer ABG pH POC ABG pCO2 POC ABG pO2 ABG pO2 ABG HCO3 ABG O2 Saturation ABG Base Excess ABG Hemoglobin ABG Oxyhemoglobin Oxyhemoglobin Sodium 149 H D Potassium Chloride 124.3 H Carbon Dioxide 8 L* D BUN Creatinine 0.3 L Glucose 628 H* POC Glucose Lactic Acid Calcium 2.4 L* D AST ALT < 5 L Alkaline Phosphatase 19 L Total Protein 1.6 L D Albumin 0.8 L Triglycerides Ur Specific [place] Crossmatch 06/11/21 06/11/21 06/11/21 23:21 23:22 23:42 WBC RBC Hgb Hct MCV MCH 27 L RDW 22.2 H Plt Count 131 L Lymph % (Auto) [place] % (Auto) [place] # (Auto) Seg Neutrophils % Seg Neuts % (Manual) Lymphocytes % (Manual) Monocytes % (Manual) Seg Neutrophils # Seg Neutrophils # Man Lymphocytes # (Manual) Monocytes # (Manual) PT 46.3 H INR 4.55 H APTT 54.8 H Fibrinogen D-Dimer ABG pH POC ABG pCO2 POC ABG pO2 325.9 H ABG pO2 ABG HCO3 ABG O2 Saturation ABG Base Excess ABG Hemoglobin 8.0 L ABG Oxyhemoglobin 99.0 H Oxyhemoglobin Sodium Potassium Chloride Carbon Dioxide BUN Creatinine Glucose POC Glucose Lactic Acid Calcium AST ALT Alkaline Phosphatase Total Protein Albumin Triglycerides Ur Specific [place] Crossmatch 06/12/21 06/12/21 06/12/21 01:45 01:45 01:45 WBC 21.6 H RBC 3.04 L Hgb 6.7 L D Hct 22.4 L D MCV 74 L MCH 22 L RDW 18.9 H Plt Count Lymph % (Auto) [place] % (Auto) [place] # (Auto) Seg Neutrophils % Seg Neuts % (Manual) 76.0 H Lymphocytes % (Manual) 2.0 L Monocytes % (Manual) 8.0 H Seg Neutrophils # Seg Neutrophils # Man 16.4 H Lymphocytes # (Manual) 0.4 L Monocytes # (Manual) 1.7 H PT 25.4 H INR 2.10 H APTT Fibrinogen D-Dimer ABG pH POC ABG pCO2 POC ABG pO2 ABG pO2 ABG HCO3 ABG O2 Saturation ABG Base Excess ABG Hemoglobin ABG Oxyhemoglobin Oxyhemoglobin Sodium Potassium 5.6 H D Chloride Carbon Dioxide 20 L D BUN Creatinine Glucose 368 H POC Glucose Lactic Acid Calcium 7.1 L D AST ALT Alkaline Phosphatase Total Protein 5.3 L D Albumin 3.1 L Triglycerides Ur Specific [place] Crossmatch 06/12/21 06/12/21 06/12/21 02:05 04:41 11:05 WBC 14.6 H RBC 3.52 L Hgb 8.5 L Hct 27.7 L MCV MCH 24 L RDW 20.9 H Plt Count Lymph % (Auto) [place] % (Auto) [place] # (Auto) Seg Neutrophils % Seg Neuts % (Manual) Lymphocytes % (Manual) Monocytes % (Manual) Seg Neutrophils # Seg Neutrophils # Man Lymphocytes # (Manual) Monocytes # (Manual) PT INR APTT Fibrinogen D-Dimer ABG pH POC ABG pCO2 POC ABG pO2 224.6 H ABG pO2 ABG HCO3 ABG O2 Saturation ABG Base Excess ABG Hemoglobin 7.3 L ABG Oxyhemoglobin 98.7 H Oxyhemoglobin Sodium Potassium Chloride Carbon Dioxide BUN Creatinine Glucose POC Glucose 308 H Lactic Acid Calcium AST ALT Alkaline Phosphatase Total Protein Albumin Triglycerides Ur Specific [place] Crossmatch 06/12/21 06/12/21 06/12/21 11:05 11:05 12:18 WBC RBC Hgb Hct MCV MCH RDW Plt Count Lymph % (Auto) [place] % (Auto) [place] # (Auto) Seg Neutrophils % Seg Neuts % (Manual) Lymphocytes % (Manual) Monocytes % (Manual) Seg Neutrophils # Seg Neutrophils # Man Lymphocytes # (Manual) Monocytes # (Manual) PT 16.8 H INR 1.23 H APTT Fibrinogen D-Dimer ABG pH POC ABG pCO2 POC ABG pO2 ABG pO2 ABG HCO3 ABG O2 Saturation ABG Base Excess ABG Hemoglobin ABG Oxyhemoglobin Oxyhemoglobin Sodium Potassium Chloride Carbon Dioxide BUN 24 H Creatinine Glucose 324 H POC Glucose 281 H Lactic Acid Calcium 7.5 L AST 70 H ALT 57 H Alkaline Phosphatase Total Protein 6.0 L Albumin 3.6 L Triglycerides Ur Specific [place] Crossmatch 06/12/21 06/12/21 06/12/21 17:00 17:00 17:00 WBC RBC Hgb 7.5 L Hct 24.0 L MCV MCH RDW Plt Count Lymph % (Auto) [place] % (Auto) [place] # (Auto) Seg Neutrophils % Seg Neuts % (Manual) Lymphocytes % (Manual) Monocytes % (Manual) Seg Neutrophils # Seg Neutrophils # Man Lymphocytes # (Manual) Monocytes # (Manual) PT 16.0 H INR 1.16 H APTT Fibrinogen D-Dimer ABG pH POC ABG pCO2 POC ABG pO2 ABG pO2 ABG HCO3 ABG O2 Saturation ABG Base Excess ABG Hemoglobin ABG Oxyhemoglobin Oxyhemoglobin Sodium Potassium Chloride Carbon Dioxide BUN Creatinine Glucose POC Glucose Lactic Acid Calcium AST ALT Alkaline Phosphatase Total Protein Albumin Triglycerides Ur Specific [place] 1.035 H Crossmatch 06/12/21 06/12/21 06/12/21 18:06 23:00 23:05 WBC RBC Hgb 7.6 L Hct 23.5 L MCV MCH RDW Plt Count Lymph % (Auto) [place] % (Auto) [place] # (Auto) Seg Neutrophils % Seg Neuts % (Manual) Lymphocytes % (Manual) Monocytes % (Manual) Seg Neutrophils # Seg Neutrophils # Man Lymphocytes # (Manual) Monocytes # (Manual) PT INR APTT Fibrinogen D-Dimer ABG pH POC ABG pCO2 POC ABG pO2 ABG pO2 ABG HCO3 ABG O2 Saturation ABG Base Excess ABG Hemoglobin ABG Oxyhemoglobin Oxyhemoglobin Sodium Potassium Chloride Carbon Dioxide BUN Creatinine Glucose POC Glucose 257 H 300 H Lactic Acid Calcium AST ALT Alkaline Phosphatase Total Protein Albumin Triglycerides Ur Specific [place] Crossmatch 06/13/21 06/13/21 06/13/21 04:31 05:19 07:30 WBC RBC Hgb 6.8 L Hct 21.7 L MCV MCH RDW Plt Count Lymph % (Auto) [place] % (Auto) [place] # (Auto) Seg Neutrophils % Seg Neuts % (Manual) Lymphocytes % (Manual) Monocytes % (Manual) Seg Neutrophils # Seg Neutrophils # Man Lymphocytes # (Manual) Monocytes # (Manual) PT INR APTT Fibrinogen D-Dimer ABG pH 7.541 H POC ABG pCO2 25.6 L POC ABG pO2 138.8 H ABG pO2 ABG HCO3 ABG O2 Saturation ABG Base Excess ABG Hemoglobin 7.3 L ABG Oxyhemoglobin 98.1 H Oxyhemoglobin Sodium Potassium Chloride Carbon Dioxide BUN Creatinine Glucose POC Glucose 286 H Lactic Acid Calcium AST ALT Alkaline Phosphatase Total Protein Albumin Triglycerides Ur Specific [place] Crossmatch 06/13/21 06/13/21 06/13/21 07:30 12:04 14:50 WBC RBC Hgb Hct MCV MCH RDW Plt Count Lymph % (Auto) [place] % (Auto) [place] # (Auto) Seg Neutrophils % Seg Neuts % (Manual) Lymphocytes % (Manual) Monocytes % (Manual) Seg Neutrophils # Seg Neutrophils # Man Lymphocytes # (Manual) Monocytes # (Manual) PT INR APTT Fibrinogen D-Dimer ABG pH 7.039 L* 7.182 L* POC ABG pCO2 POC ABG pO2 ABG pO2 63.1 L ABG HCO3 17.4 L ABG O2 Saturation 73.4 L ABG Base Excess -12.6 L -7.1 L ABG Hemoglobin 7.7 L 6.9 L ABG Oxyhemoglobin Oxyhemoglobin 71.8 L 93.5 L Sodium Potassium Chloride 108.9 H Carbon Dioxide BUN 28 H Creatinine Glucose 293 H POC Glucose Lactic Acid Calcium 7.2 L AST 106 H ALT 92 H Alkaline Phosphatase Total Protein 5.6 L Albumin 3.3 L Triglycerides Ur Specific [place] Crossmatch 06/13/21 06/13/21 06/13/21 14:54 15:45 17:34 WBC RBC Hgb Hct MCV MCH RDW Plt Count Lymph % (Auto) [place] % (Auto) [place] # (Auto) Seg Neutrophils % Seg Neuts % (Manual) Lymphocytes % (Manual) Monocytes % (Manual) Seg Neutrophils # Seg Neutrophils # Man Lymphocytes # (Manual) Monocytes # (Manual) PT INR APTT Fibrinogen D-Dimer ABG pH POC ABG pCO2 POC ABG pO2 ABG pO2 178.4 H ABG HCO3 ABG O2 Saturation 99.1 H ABG Base Excess ABG Hemoglobin 8.0 L ABG Oxyhemoglobin Oxyhemoglobin Sodium Potassium Chloride 107.3 H Carbon Dioxide 19 L BUN 33 H Creatinine 1.5 H Glucose 379 H POC Glucose Lactic Acid 5.30 H* Calcium 6.8 L AST ALT Alkaline Phosphatase Total Protein Albumin Triglycerides Ur Specific [place] Crossmatch 06/13/21 06/13/21 06/13/21 17:40 23:29 Unknown WBC 22.5 H RBC 3.16 L Hgb 8.0 L Hct 26.0 L MCV MCH 26 L RDW 21.4 H Plt Count Lymph % (Auto) [place] % (Auto) [place] # (Auto) Seg Neutrophils % Seg Neuts % (Manual) 88.0 H Lymphocytes % (Manual) 4.0 L Monocytes % (Manual) Seg Neutrophils # Seg Neutrophils # Man 19.8 H Lymphocytes # (Manual) 0.9 L Monocytes # (Manual) 1.4 H PT INR APTT Fibrinogen D-Dimer ABG pH POC ABG pCO2 POC ABG pO2 ABG pO2 ABG HCO3 ABG O2 Saturation ABG Base Excess ABG Hemoglobin ABG Oxyhemoglobin Oxyhemoglobin Sodium Potassium Chloride Carbon Dioxide BUN Creatinine Glucose POC Glucose 294 H 288 H Lactic Acid Calcium AST ALT Alkaline Phosphatase Total Protein Albumin Triglycerides Ur Specific [place] Crossmatch 06/13/21 06/14/21 06/14/21 Unknown 05:39 06:15 WBC RBC 2.93 L Hgb 7.2 L Hct 23.2 L MCV MCH 25 L RDW 21.2 H Plt Count Lymph % (Auto) [place] % (Auto) [place] # (Auto) Seg Neutrophils % Seg Neuts % (Manual) Lymphocytes % (Manual) Monocytes % (Manual) Seg Neutrophils # Seg Neutrophils # Man Lymphocytes # (Manual) Monocytes # (Manual) PT 17.6 H INR 1.31 H APTT Fibrinogen 546 H D-Dimer 1244.63 H ABG pH POC ABG pCO2 POC ABG pO2 ABG pO2 ABG HCO3 ABG O2 Saturation ABG Base Excess ABG Hemoglobin ABG Oxyhemoglobin Oxyhemoglobin Sodium Potassium Chloride Carbon Dioxide BUN Creatinine Glucose POC Glucose 246 H Lactic Acid Calcium AST ALT Alkaline Phosphatase Total Protein Albumin Triglycerides Ur Specific [place] Crossmatch 06/14/21 06/14/21 06/14/21 06:15 06:15 09:13 WBC RBC Hgb Hct MCV MCH RDW Plt Count Lymph % (Auto) [place] % (Auto) [place] # (Auto) Seg Neutrophils % Seg Neuts % (Manual) Lymphocytes % (Manual) Monocytes % (Manual) Seg Neutrophils # Seg Neutrophils # Man Lymphocytes # (Manual) Monocytes # (Manual) PT INR APTT Fibrinogen D-Dimer ABG pH POC ABG pCO2 POC ABG pO2 ABG pO2 183.0 H ABG HCO3 ABG O2 Saturation 99.2 H ABG Base Excess ABG Hemoglobin 6.6 L ABG Oxyhemoglobin Oxyhemoglobin Sodium 147 H Potassium Chloride 112.5 H Carbon Dioxide 21 L BUN 36 H Creatinine 1.4 H Glucose 281 H POC Glucose Lactic Acid Calcium 6.9 L AST ALT Alkaline Phosphatase Total Protein Albumin Triglycerides 189 H Ur Specific [place] Crossmatch 06/14/21 06/14/21 06/14/21 10:45 12:16 13:30 WBC RBC Hgb 7.1 L Hct 22.3 L MCV MCH RDW Plt Count Lymph % (Auto) [place] % (Auto) [place] # (Auto) Seg Neutrophils % Seg Neuts % (Manual) Lymphocytes % (Manual) Monocytes % (Manual) Seg Neutrophils # Seg Neutrophils # Man Lymphocytes # (Manual) Monocytes # (Manual) PT INR APTT Fibrinogen D-Dimer ABG pH 7.205 L POC ABG pCO2 POC ABG pO2 ABG pO2 261.3 H ABG HCO3 ABG O2 Saturation 99.4 H ABG Base Excess -7.2 L ABG Hemoglobin 7.6 L ABG Oxyhemoglobin Oxyhemoglobin Sodium Potassium Chloride Carbon Dioxide BUN Creatinine Glucose POC Glucose 174 H Lactic Acid Calcium AST ALT Alkaline Phosphatase Total Protein Albumin Triglycerides Ur Specific [place] Crossmatch 06/14/21 06/14/21 06/15/21 17:40 18:43 00:06 WBC RBC Hgb Hct MCV MCH RDW Plt Count Lymph % (Auto) [place] % (Auto) [place] # (Auto) Seg Neutrophils % Seg Neuts % (Manual) Lymphocytes % (Manual) Monocytes % (Manual) Seg Neutrophils # Seg Neutrophils # Man Lymphocytes # (Manual) Monocytes # (Manual) PT INR APTT Fibrinogen D-Dimer ABG pH 7.292 L POC ABG pCO2 POC ABG pO2 ABG pO2 78.8 L ABG HCO3 ABG O2 Saturation ABG Base Excess -5.0 L ABG Hemoglobin 9.1 L ABG Oxyhemoglobin Oxyhemoglobin 93.7 L Sodium Potassium Chloride Carbon Dioxide BUN Creatinine Glucose POC Glucose 182 H 144 H Lactic Acid Calcium AST ALT Alkaline Phosphatase Total Protein Albumin Triglycerides Ur Specific [place] Crossmatch 06/15/21 06/15/21 06/15/21 03:55 03:56 Unknown WBC RBC 3.21 L Hgb 8.4 L 8.4 L Hct 25.8 L 26.1 L MCV MCH 26 L RDW 21.3 H Plt Count 105 L Lymph % (Auto) [place] % (Auto) [place] # (Auto) Seg Neutrophils % Seg Neuts % (Manual) Lymphocytes % (Manual) Monocytes % (Manual) Seg Neutrophils # Seg Neutrophils # Man Lymphocytes # (Manual) Monocytes # (Manual) PT INR APTT Fibrinogen D-Dimer ABG pH POC ABG pCO2 POC ABG pO2 ABG pO2 ABG HCO3 ABG O2 Saturation ABG Base Excess ABG Hemoglobin ABG Oxyhemoglobin Oxyhemoglobin Sodium 147 H Potassium Chloride 112.2 H Carbon Dioxide 21 L BUN 47 H Creatinine 1.9 H Glucose 272 H POC Glucose Lactic Acid Calcium 7.3 L AST 64 H ALT 106 H Alkaline Phosphatase Total Protein 5.1 L Albumin 2.9 L Triglycerides Ur Specific [place] Crossmatch 06/15/21 Unknown WBC RBC Hgb Hct MCV MCH RDW Plt Count Lymph % (Auto) [place] % (Auto) [place] # (Auto) Seg Neutrophils % Seg Neuts % (Manual) Lymphocytes % (Manual) Monocytes % (Manual) Seg Neutrophils # Seg Neutrophils # Man Lymphocytes # (Manual) Monocytes # (Manual) PT INR APTT Fibrinogen D-Dimer ABG pH 7.465 H POC ABG pCO2 POC ABG pO2 ABG pO2 114.1 H ABG HCO3 ABG O2 Saturation ABG Base Excess ABG Hemoglobin 8.4 L ABG Oxyhemoglobin Oxyhemoglobin Sodium Potassium Chloride Carbon Dioxide BUN Creatinine Glucose POC Glucose Lactic Acid Calcium AST ALT Alkaline Phosphatase Total Protein Albumin Triglycerides Ur Specific [place] Crossmatch
[2021-06-15] MEDS: LACTATED RINGERS 1,000 ML IV SCH (10:50)
--- NOTE | 2021-06-15 11:04 | Progress Note ---
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 Continue IV antibiotics and observation with ventilatory support. The neck exploration appears stable at this time without further signs of bleeding. Chest x-rays are also with resolution of pneumothorax and decreasing amounts of subcu emphysema. We will reassess the airway on Thursday to see if any further support is required. Description of care given to the family via Tk Suarez who is a [id number] and of Srinivas Suarez the oldest brother of the family. Attempt was made to call Nikki Garcia the patient's sister as [phone] however the line was busy and I was unable to leave a message for her. Subjective Date of service: 06/15/21 Narrative: Patient remains on the ventilator today. She had some bradycardia through the night. Heart rates dropped into the 30s but systemic blood pressures remained good. Ventilation continues to be supported. FiO2 is being weaned. Patient's sedation is being weaned to check for mental status. Objective Vital Signs - 12hr 06/14/21 06/14/21 06/14/21 23:05 23:11 23:15 Temperature Pulse Rate 53 L 51 L 60 Pulse Rate [ From Monitor] Respiratory 22 Rate Blood Pressure 138/72 138/72 130/73 O2 Sat by Pulse 100 100 100 Oximetry 06/14/21 06/14/21 06/14/21 23:17 23:18 23:21 Temperature Pulse Rate 51 L 51 L 53 L Pulse Rate [ 52 L From Monitor] Respiratory Rate Blood Pressure 130/73 130/73 O2 Sat by Pulse 100 100 100 Oximetry 06/14/21 06/14/21 06/14/21 23:25 23:30 23:35 Temperature Pulse Rate 54 L 51 L 55 L Pulse Rate [ From Monitor] Respiratory 22 Rate Blood Pressure 130/73 130/65 130/65 O2 Sat by Pulse 100 100 100 Oximetry 06/14/21 06/14/21 06/14/21 23:41 23:45 23:51 Temperature Pulse Rate 50 L 70 54 L Pulse Rate [ From Monitor] Respiratory 18 22 Rate Blood Pressure 130/65 125/77 125/77 O2 Sat by Pulse 100 100 100 Oximetry 06/14/21 06/15/21 06/15/21 23:55 00:00 00:05 Temperature 96.1 F L Pulse Rate 64 49 L 50 L Pulse Rate [ From Monitor] Respiratory 22 22 16 Rate Blood Pressure 125/77 134/67 134/67 O2 Sat by Pulse 100 100 100 Oximetry 06/15/21 06/15/21 06/15/21 00:11 00:15 00:21 Temperature Pulse Rate 51 L 52 L 52 L Pulse Rate [ From Monitor] Respiratory 22 22 22 Rate Blood Pressure 134/67 133/64 133/64 O2 Sat by Pulse 100 100 100 Oximetry 06/15/21 06/15/21 06/15/21 00:25 00:30 00:35 Temperature Pulse Rate 52 L 63 56 L Pulse Rate [ From Monitor] Respiratory 22 17 22 Rate Blood Pressure 133/64 132/67 132/67 O2 Sat by Pulse 100 100 100 Oximetry 06/15/21 06/15/21 06/15/21 00:41 00:45 00:57 Temperature Pulse Rate 54 L 51 L 50 L Pulse Rate [ From Monitor] Respiratory 22 22 Rate Blood Pressure 132/67 135/67 135/67 O2 Sat by Pulse 100 100 100 Oximetry 06/15/21 06/15/21 06/15/21 01:00 01:15 01:30 Temperature Pulse Rate 52 L 52 L 50 L Pulse Rate [ From Monitor] Respiratory 22 22 22 Rate Blood Pressure 135/65 130/63 132/65 O2 Sat by Pulse 100 100 100 Oximetry 06/15/21 06/15/21 06/15/21 01:45 02:00 02:15 Temperature Pulse Rate 51 L 53 L 56 L Pulse Rate [ From Monitor] Respiratory 22 22 22 Rate Blood Pressure 135/68 132/64 144/69 O2 Sat by Pulse 100 100 100 Oximetry 06/15/21 06/15/21 06/15/21 02:30 02:46 03:00 Temperature Pulse Rate 54 L 63 54 L Pulse Rate [ From Monitor] Respiratory 22 22 22 Rate Blood Pressure 145/69 145/69 131/64 O2 Sat by Pulse 100 100 100 Oximetry 06/15/21 06/15/21 06/15/21 03:15 03:30 03:45 Temperature Pulse Rate 57 L 63 53 L Pulse Rate [ From Monitor] Respiratory 19 22 22 Rate Blood Pressure 147/73 149/75 133/65 O2 Sat by Pulse 100 100 100 Oximetry 06/15/21 06/15/21 06/15/21 03:58 04:00 04:15 Temperature 99.2 F Pulse Rate 54 L 55 L 51 L Pulse Rate [ 53 L From Monitor] Respiratory 22 22 Rate Blood Pressure 134/70 132/65 O2 Sat by Pulse 100 100 Oximetry 06/15/21 06/15/21 06/15/21 04:30 04:46 05:00 Temperature Pulse Rate 55 L 54 L 57 L Pulse Rate [ From Monitor] Respiratory 17 20 22 Rate Blood Pressure 145/70 132/72 145/68 O2 Sat by Pulse 100 100 100 Oximetry 06/15/21 06/15/21 06/15/21 05:16 05:30 05:45 Temperature Pulse Rate 57 L 51 L 61 Pulse Rate [ From Monitor] Respiratory 16 15 19 Rate Blood Pressure 145/71 143/66 148/75 O2 Sat by Pulse 100 100 100 Oximetry 06/15/21 06/15/21 06/15/21 06:00 06:15 06:30 Temperature Pulse Rate 50 L 53 L 56 L Pulse Rate [ From Monitor] Respiratory 22 22 22 Rate Blood Pressure 148/72 149/72 150/70 O2 Sat by Pulse 100 100 100 Oximetry 06/15/21 06/15/21 06/15/21 06:45 07:00 07:15 Temperature Pulse Rate 50 L 54 L 51 L Pulse Rate [ From Monitor] Respiratory 22 22 22 Rate Blood Pressure 153/73 152/72 156/76 O2 Sat by Pulse 100 100 100 Oximetry 06/15/21 06/15/21 06/15/21 07:30 07:45 08:00 Temperature 98.3 F Pulse Rate 46 L 56 L 52 L Pulse Rate [ 55 L From Monitor] Respiratory 22 22 21 Rate Blood Pressure 156/75 155/76 155/77 O2 Sat by Pulse 100 100 100 Oximetry 06/15/21 06/15/21 06/15/21 08:16 08:30 08:45 Temperature Pulse Rate 46 L 52 L 54 L Pulse Rate [ From Monitor] Respiratory 22 22 22 Rate Blood Pressure 155/71 145/75 151/76 O2 Sat by Pulse 100 100 100 Oximetry 06/15/21 06/15/21 06/15/21 09:00 09:15 09:45 Temperature Pulse Rate 55 L 51 L 51 L Pulse Rate [ From Monitor] Respiratory 22 22 Rate Blood Pressure 148/79 145/70 156/74 O2 Sat by Pulse 100 100 100 Oximetry - Labs 06/15/21 Unknown 06/15/21 03:56 Diabetes panel 06/15/21 Range/Units 03:56 Sodium 147 H (137-145) mmol/L Potassium 3.8 (3.6-5.0) mmol/L Chloride 112.2 H (98-107) mmol/L Carbon Dioxide 21 L (22-30) mmol/L BUN 47 H (7-17) mg/dL Creatinine 1.9 H (0.6-1.2) mg/dL Glucose 272 H (65-100) mg/dL Calcium 7.3 L (8.4-10.2) mg/dL AST 64 H (5-40) units/L ALT 106 H (7-56) units/L Alkaline Phosphatase 55 (35-129) units/L Total Protein 5.1 L (6.3-8.2) g/dL Albumin 2.9 L (3.9-5) g/dL Calcium panel 06/15/21 Range/Units 03:56 Calcium 7.3 L (8.4-10.2) mg/dL Phosphorus 3.50 (2.5-4.5) mg/dL Albumin 2.9 L (3.9-5) g/dL Pituitary panel 06/15/21 Range/Units 03:56 Sodium 147 H (137-145) mmol/L Potassium 3.8 (3.6-5.0) mmol/L Chloride 112.2 H (98-107) mmol/L Carbon Dioxide 21 L (22-30) mmol/L BUN 47 H (7-17) mg/dL Creatinine 1.9 H (0.6-1.2) mg/dL Glucose 272 H (65-100) mg/dL Calcium 7.3 L (8.4-10.2) mg/dL Adrenal panel 06/15/21 Range/Units 03:56 Sodium 147 H (137-145) mmol/L Potassium 3.8 (3.6-5.0) mmol/L Chloride 112.2 H (98-107) mmol/L Carbon Dioxide 21 L (22-30) mmol/L BUN 47 H (7-17) mg/dL Creatinine 1.9 H (0.6-1.2) mg/dL Glucose 272 H (65-100) mg/dL Calcium 7.3 L (8.4-10.2) mg/dL Total Bilirubin 0.40 (0.1-1.2) mg/dL AST 64 H (5-40) units/L ALT 106 H (7-56) units/L Alkaline Phosphatase 55 (35-129) units/L Total Protein 5.1 L (6.3-8.2) g/dL Albumin 2.9 L (3.9-5) g/dL
[2021-06-15 12:11] LABS: Creatinine,Urine 81.1 mg/dL (0.1-20.0)
--- NOTE | 2021-06-15 12:53 | Ultrasound Report ---
ULTRASOUND RENAL INDICATION / CLINICAL INFORMATION: worsening renal function. COMPARISON: None available. FINDINGS: Exam is technically difficult due to poor acoustic windows. RIGHT KIDNEY: Length = 10.3 cm. - Echogenicity: Normal. - Cortical Thickness: Normal. - Hydronephrosis: None. - Cyst / Mass: None. - Stones: None seen. LEFT KIDNEY: Length = 10.9 cm. - Echogenicity: Normal. - Cortical Thickness: Normal. - Hydronephrosis: None. - Cyst / Mass: None. - Stones: Small echogenic foci are seen in the left kidney. URINARY BLADDER: No significant abnormality. FREE FLUID: None. ADDITIONAL FINDINGS: None. IMPRESSION: 1. Technically difficult exam due to poor acoustic windows. 2. No hydronephrosis. 3. Echogenic foci in the left kidney may represent nonobstructing stones. Signer Name: Nicola Yi MD Signed: 06/15/2021 12:49 PM Workstation Name: [id number]
[2021-06-15] MEDS: PIPERACILLIN/TAZOBACTAM 3.375 3.375 GM/50 ML BAG IV SCH ×2 (15:27→20:37)
[2021-06-15] MEDS: fentaNYL 100 MCG/2 ML INJ IV PRN (16:50)
--- NOTE | 2021-06-15 17:20 | Progress Note ---
<JORGEKIT JosseCandelaria - Last Filed: 06/15/21 17:22> Assessment and Plan Assessment and plan: This is a 76-year-old female with HTN, Coumadin use, dental caries, PVD s/p stenting to right leg, DM, arthritis, depression, gout and ? Pulmonary hypertension admitted with Jeremiah's angina s/p emergent cric with bleeding, right sided pneumothorax, supratherapeutic INR, hypernatremia, hyperchloremia, severe metabolic acidosis, hyperglycemia and hypocalcemia Neuro: Sedated, h/o depression, arthritis -Sedated with versed, propofol, fentanyl gtt -RASS goal -3 to -4 -holding sedation for now -Bilateral wrist restraints in place for safety -Avoid delirium -Reorientation as needed -Maintain sleep-wake cycle Cardiac: S/p cardiac arrest, h/o htn, PVD s/p stenting Right leg -06/14 cardiac arrest with ROSC -Vasopressor support with Levophed and Fabian-Synephrine -Titrate as tolerated -MAP goal greater than 65 -Blood pressure monitoring per protocol -Pressure monitoring via A-line -Echocardiogram pending Respiratory: Acute hypoxic respiratory failure, right pneumothorax -CCM consulted, appreciate recommendations -S/p emergent cricothyroid with surgery with 8.00 ETT -A.m. vent settings: Assist-control, rate 22, tidal line 500, PEEP 6, FiO2 50% -See RT notes for titration -A.m. ABG and CXR noted -Right chest tube replaced by surgery -CT to wall suction -Change to larger bore on 06/13 -Postop CXR shows possible hydropneumothorax on right side -06/13 bronchoscopy showed possible blood clot in left lung which may be acting as mucous plug however it was left in place due to possible bleeding inside lung if removed. -Repeat CXR post cardiac arrest shows clearance of mucous plug -VAP bundle -SPO2 monitoring GI: Protein calorie malnutrition -24 hours +860 mL -PPI -Hold BR in setting of no enteral access -Start Clinimax : Acute kidney injury possibly secondary to vasomotor nephropathy, metabolic acidosis, hypernatremia, hyperchloremia -Strict intake and output -Renally dose medications -Avoid nephrotoxic medications -Daily weights -Consider nephrology consult if worsens -S/p 2 L LR bolus yesterday -Repeat 2 L LR bolus today -FeNa 0.067 ID: 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 dental caries -CT neck with contrast showed a significant right floor of mild swelling with extension into the submandibular and submental spaces, significant thickening and inflammation involving the right pharyngeal wall, with the parapharyngeal and retropharyngeal spaces at the level of the thyroid cartilage, epiglottis significantly swollen and so are the aryepiglottic folds resulting in significant airway narrowing at this level, no lymphadenopathy, symmetric submandibular and parathyroid glands, S few scattered caries but no periapical lucencies, nonspecific calcification along the right lateral oropharynx, no definite stone seen within the territory of the submandibular gland ducts, no suspicious rashes lesion -Infectious disease and general surgery consulted, appreciate recommendations -s/p cricothyroidectomy -Will follow surgery to direction and treatment of injury -Per surgery may have mucosal injury -Intra-Op findings include post pharyngeal swelling and bruising -Solu-Medrol 125 every 8 -Antibiotic therapy with cefepime, Flagyl, vancomycin -changed to zosyn -COVID-19 PCR negative -f/u blood culture -Monitor WBC and temperature curve -s/p 5L normal saline bolus in ED, 4 L LR bolus in ICU -2 LR bolus today Heme: Coagulopathy, supratherapeutic INR, acute blood loss anemiq, possible c omponent of hemorrhagic shock -Patient is on Coumadin at home -S/p 5 FFP, 7 PRBC, vitamin K x3 -Trend CBC -Presented with H/H of 10.3/34.6 and decreased to 6.7/22.4 -Serial H/H -INR 8.18-> 4.55-> 2.1-> 1.23-> 1.16-> 1.31 -Monitor INR -Transfuse hemoglobin less than 7 -Monitor for signs of bleeding -SCDs to BLE while in bed -Avoid chemical anticoagulation in setting of recent blood loss anemia Endo: h/o DM, gout -Avoid hypoglycemia -SSI -Accu-Cheks q. 6hr The high probability of a clinically significant, sudden or life threatening deterioration of the [multi] system(s) required my full and direct attention, intervention and personal management. The aggregate critical care time was [60] minutes. This time is in addition to time spent performing reported procedures but includes the following: [x] Data Review and interpretation [x] Patient assessment and monitoring of vital signs [x] Documentation [x] Medication orders and management Disposition Plan: icu Total Time Spent with Patient (Minutes): 60 History Interval history: This is a 76-year-old female with HTN, Coumadin use , dental caries, PVD s/p stenting right leg, DM, arthritis, depression, gout, and ? Pulmonary hypertension who presented to emergency department on 06/11 with complaints of pain to mandible area and throat and swelling. Work-up in the emergency department included CT scan of the head and neck which showed findings consistent with Jeremiah's angina and anesthesia was called for intubation. Anesthesia intubation attempts were unsuccessful and surgery was consulted for cricothyroidotomy which was unsuccessful in the emergency department and patient was taken to the OR for tracheostomy. Intubation procedure was complicated by development of pneumothorax and excessive bleeding. Patient given multiple FFP's and vitamin K several times who attempts to decrease INR. Lab work showed leukocytosis, supratherapeutic INR, hypernatremia, hyperchloremia, severe metabolic acidosis, hyperglycemia, hypocalcemia. Patient was admitted to the hospitalist service with consults to [facility], general surgery, infectious disease. Hospital course to date: 06/12: Patient received additional 2 units FFP and 1 unit PRBC and vitamin K today. Overnight critical care placed a femoral CVL. Patient sedated on fentanyl, propofol and Versed. Currently on Fabian-Synephrine and Levophed for blood pressure maintenance. Remains amatory support. Infectious disease consulted. Started on sliding scale insulin and recultured. COVID-19 PCR pending. Surgery at bedside to place chest tube. 06/13: Patient was taken back to the OR today for exchange cricothyroid to possible tracheostomy. Patient returned with ETT. Chest tube was changed to larger size in the OR. Patient was hypotensive, tachycardic, hypoxic in the OR and received hespan, albumin and an A-line. Upon arrival patient was increased to max dose Levophed for hypotension which has resolved. Titrating vasopressors as tolerated. Remains on sedation with 3 agents. Apparently patient was not ventilating her left lung Intra-Op. Noted to have subcu hematoma and trauma to postpharyngeal area. Questionable decrease cardiac wall motion noted in OR-> will order echocardiogram to further investigate. Patient received additional PRBC today. DIC panel resulted as normal. Patient BUN/creatinine did increase as well as noted to have lactic acidosis. May need IV bolus in addition to pressor use. Likely bronc with Pulmicort today as repeat CXR showed right possible pneumo hydrothorax 06/14: Antibiotics changed to Zosyn per ID, surgical packing removed from neck and makeshift Manteno drain placed by surgery and old chronic thyroidectomy site. CXR was completed and RN heard gurgling and blood was noted on dressing. ST elevation noted on bedside monitor and patient was hypoxic. FiO2 increased to 100%. However shortly after patient lost her pulse and ACLS was initiated. Patient received 3 rounds of epinephrine and ROSC was achieved. Stat portable CXR showed resolution of lower lobe collapse on the left and stable right-sided chest tube with hemothorax. CCM updated family. Patient H/H noted to be 7.2/23.2 and did RN to transfuse prepared PRBC which ws [facility] blood bank. Bedside echo completed. 06/15: Off sedation, intermittently follows commands, remains on the prednisone. Surgery will reassess airway on Thursday to see if any further support is required. Urine studies indicate prerenal, given IV bolus and started on Clinimix today. Hospitalist Physical - Constitutional Vitals: Temp Pulse Resp BP Pulse Ox 98.1 F 57 L 22 159/82 100 06/15/21 12:00 06/15/21 17:00 06/15/21 17:00 06/15/21 17:00 06/15/21 17:00 General appearance: Present: no acute distress, obese - EENT Eyes: Present: PERRL ENT: poor dentition - Neck Neck: Present: masses or JVD - Respiratory Respiratory effort: normal Respiratory: bilateral: diminished - Cardiovascular Rhythm: regular Heart Sounds: Present: S1 & S2. Absent: systolic murmur - Extremities Extremities: no ischemia, pulses intact, pulses symmetrical, No edema, normal temperature, normal color Peripheral Pulses: within normal limits - Abdominal General gastrointestinal: soft, non-tender, non-distended, normal bowel sounds - Integumentary Integumentary: Present: warm, dry - Psychiatric Psychiatric: other - Neurologic Neurologic: other (intermittantly follows commands) - Allied Health Allied health notes reviewed: nursing, RT HEART Score - HEART Score Troponin: Troponin T < 0.010 ng/mL (0.00-0.029) 06/11/21 23:21 Results - Labs CBC & Chem 7: 06/15/21 Unknown 06/15/21 03:56 Labs: Laboratory Last Values WBC 10.2 K/mm3 (4.5-11.0) 06/15/21 Unknown RBC 3.21 M/mm3 (3.65-5.03) L 06/15/21 Unknown Hgb 8.4 gm/dl (10.1-14.3) L 06/15/21 Unknown Hct 26.1 % (30.3-42.9) L 06/15/21 Unknown MCV 81 fl (79-97) 06/15/21 Unknown MCH 26 pg (28-32) L 06/15/21 Unknown MCHC 32 % (30-34) 06/15/21 Unknown RDW 21.3 % (13.2-15.2) H 06/15/21 Unknown Plt Count 105 K/mm3 (140-440) L 06/15/21 Unknown Lymph % (Auto) 9.2 % (13.4-35.0) L 06/11/21 19:29 [place]ady % (Auto) 1.4 % (0.0-7.3) 06/11/21 19: Eos % (Auto) 0.2 % (0.0-4.3) 06/11/21 19: Baso % (Auto) 0.2 % (0.0-1.8) 06/11/21 19:29 Lymph # (Auto) 1.4 K/mm3 (1.2-5.4) 06/11/21 19:29 [place] # (Auto) 0.2 K/mm3 (0.0-0.8) 06/11/21 19: Eos # (Auto) 0.0 K/mm3 (0.0-0.4) 06/11/21 19: Baso # (Auto) 0.0 K/mm3 (0.0-0.1) 06/11/21 19: Add Manual Diff Complete 06/13/21 Unknown Total Counted 100 06/13/21 Unknown Seg Neutrophils % 89.0 % (40.0-70.0) H 06/11/21 19:29 Seg Neuts % (Manual) 88.0 % (40.0-70.0) H 06/13/21 Unknown Band Neutrophils % 2.0 % 06/13/21 Unknown Lymphocytes % (Manual) 4.0 % (13.4-35.0) L 06/13/21 Unknown Reactive Lymphs % (Man) 0 % 06/13/21 Unknown Monocytes % (Manual) 6.0 % (0.0-7.3) 06/13/21 Unknown Eosinophils % (Manual) 0 % (0.0-4.3) 06/13/21 Unknown Basophils % (Manual) 0 % (0.0-1.8) 06/13/21 Unknown Metamyelocytes % 0 % 06/13/21 Unknown Myelocytes % 0 % 06/13/21 Unknown Promyelocytes % 0 % 06/13/21 Unknown Blast Cells % 0 % 06/13/21 Unknown Nucleated RBC % Not Reportable 06/13/21 Unknown Seg Neutrophils # 14.0 K/mm3 (1.8-7.7) H 06/11/21 19:29 Seg Neutrophils # Man 19.8 K/mm3 (1.8-7.7) H 06/13/21 Unknown Band Neutrophils # 0.5 K/mm3 06/13/21 Unknown Lymphocytes # (Manual) 0.9 K/mm3 (1.2-5.4) L 06/13/21 Unknown Abs React Lymphs (Man) 0.0 K/mm3 06/13/21 Unknown Monocytes # (Manual) 1.4 K/mm3 (0.0-0.8) H 06/13/21 Unknown Eosinophils # (Manual) 0.0 K/mm3 (0.0-0.4) 06/13/21 Unknown Basophils # (Manual) 0.0 K/mm3 (0.0-0.1) 06/13/21 Unknown Metamyelocytes # 0.0 K/mm3 06/13/21 Unknown Myelocytes # 0.0 K/mm3 06/13/21 Unknown Promyelocytes # 0.0 K/mm3 06/13/21 Unknown Blast Cells # 0.0 K/mm3 06/13/21 Unknown WBC Morphology Not Reportable 06/13/21 Unknown Hypersegmented Neuts Not Reportable 06/13/21 Unknown Hyposegmented Neuts Not Reportable 06/13/21 Unknown Hypogranular Neuts Not Reportable 06/13/21 Unknown Smudge Cells Not Reportable 06/13/21 Unknown Toxic Granulation 2+ 02/10/22 Unknown Toxic Vacuolation Not Reportable 06/13/21 Unknown Dohle Bodies Not Reportable 06/13/21 Unknown Pelger-Huet Anomaly Not Reportable 06/13/21 Unknown Dennis Rods Not Reportable 06/13/21 Unknown Platelet Estimate Consistent w auto 06/13/21 Unknown Clumped Platelets Not Reportable 06/13/21 Unknown Plt Clumps, EDTA Not Reportable 06/13/21 Unknown Large Platelets Not Reportable 06/13/21 Unknown Giant Platelets Not Reportable 06/13/21 Unknown Platelet Satelliting Not Reportable 06/13/21 Unknown Plt Morphology Comment Not Reportable 06/13/21 Unknown RBC Morphology Not Reportable 06/13/21 Unknown Dimorphic RBCs Not Reportable 06/13/21 Unknown Polychromasia Few 06/13/21 Unknown Hypochromasia 2+ 06/13/21 Unknown Poikilocytosis Not Reportable 06/13/21 Unknown Anisocytosis 1+ 06/13/21 Unknown Microcytosis Not Reportable 06/13/21 Unknown Macrocytosis Not Reportable 06/13/21 Unknown Spherocytes Not Reportable 06/13/21 Unknown Pappenheimer Bodies Not Reportable 06/13/21 Unknown Sickle Cells Not Reportable 06/13/21 Unknown Target Cells Not Reportable 06/13/21 Unknown Tear Drop Cells Not Reportable 06/13/21 Unknown Ovalocytes Not Reportable 06/13/21 Unknown Stomatocytes Few 06/12/21 01:45 Helmet Cells Not Reportable 06/13/21 Unknown [place] Bodies Not Reportable 06/13/21 Unknown [place] Rings Not Reportable 06/13/21 Unknown [place] Cells Not Reportable 06/13/21 Unknown Bite Cells Not Reportable 06/13/21 Unknown Crenated Cell Not Reportable 06/13/21 Unknown Elliptocytes Not Reportable 06/13/21 Unknown Acanthocytes (Spur) Not Reportable 06/13/21 Unknown Rouleaux Not Reportable 06/13/21 Unknown Hemoglobin C Crystals Not Reportable 06/13/21 Unknown Schistocytes Not Reportable 06/13/21 Unknown Malaria parasites Not Reportable 06/13/21 Unknown [place]in Bodies Not Reportable 06/13/21 Unknown Hem Pathologist Commnt No 06/13/21 Unknown PT 17.6 Sec. (12.2-14.9) H 06/13/21 Unknown INR 1.31 (0.87-1.13) H 06/13/21 Unknown APTT 26.4 Sec. (24.2-36.6) 06/13/21 Unknown Fibrinogen 546 mg/dl (211-480) H 06/13/21 Unknown D-Dimer 1244.63 ng/mlDDU (0-234) H 06/13/21 Unknown ABG pH 7.465 pH Units (7.350-7.450) H 06/15/21 Unknown POC ABG pCO2 25.6 mmHg (32.0-48.0) L 06/13/21 04:31 ABG pCO2 30.9 mm Hg 06/15/21 Unknown POC ABG pO2 138.8 mmHg (83-108) H 06/13/21 04:31 ABG pO2 114.1 mm Hg (80.0-90.0) H 06/15/21 Unknown POC ABG HCO3 21.4 06/13/21 04:31 ABG HCO3 21.7 mmol/L (20.0-26.0) 06/15/21 Unknown ABG O2 Saturation 98.3 % (95.0-99.0) 06/15/21 Unknown ABG O2 Content 11.6 (0.0-44) 06/15/21 Unknown POC ABG Base Excess -0.7 06/13/21 04:31 ABG Base Excess -1.6 mmol/L (-2.0-3.0) 06/15/21 Unknown ABG Hemoglobin 8.4 gm/dl (12.0-16.0) L 06/15/21 Unknown ABG Oxyhemoglobin 98.1 (94-98) H 06/13/21 04:31 ABG Carboxyhemoglobin 1.1 % (0.0-5.0) 06/15/21 Unknown ABG Methemoglobin 0.5 % (0.0-1.5) 06/15/21 Unknown Oxyhemoglobin 96.7 % (95.0-99.0) 06/15/21 Unknown Carboxyhemoglobin 0.8 (0.5-1.5) 06/13/21 04:31 FiO2 21 % 06/15/21 Unknown FiO2 % 40.0 06/13/21 04:31 Sodium 147 mmol/L (137-145) H 06/15/21 03:56 Potassium 3.8 mmol/L (3.6-5.0) 06/15/21 03:56 Chloride 112.2 mmol/L (98-107) H 06/15/21 03:56 Carbon Dioxide 21 mmol/L (22-30) L 06/15/21 03:56 Anion Gap 18 mmol/L 06/15/21 03:56 BUN 47 mg/dL (7-17) H 06/15/21 03:56 Creatinine 1.9 mg/dL (0.6-1.2) H 06/15/21 03:56 Estimated GFR 31 ml/min 06/15/21 03:56 BUN/Creatinine Ratio 25 % 06/15/21 03:56 Glucose 272 mg/dL (65-100) H 06/15/21 03:56 POC Glucose 271 mg/dL (70-105) H 06/15/21 11:46 Lactic Acid 5.30 mmol/L (0.7-2.0) H* 06/13/21 15:45 Calcium 7.3 mg/dL (8.4-10.2) L 06/15/21 03:56 Phosphorus 3.50 mg/dL (2.5-4.5) 06/15/21 03:56 Magnesium 2.00 mg/dL (1.7-2.3) 06/15/21 03:56 Total Bilirubin 0.40 mg/dL (0.1-1.2) 06/15/21 03:56 AST 64 units/L (5-40) H 06/15/21 03:56 ALT 106 units/L (7-56) H 06/15/21 03:56 Alkaline Phosphatase 55 units/L (35-129) 06/15/21 03:56 Troponin T < 0.010 ng/mL (0.00-0.029) 06/11/21 23:21 Total Protein 5.1 g/dL (6.3-8.2) L 06/15/21 03:56 Albumin 2.9 g/dL (3.9-5) L 06/15/21 03:56 Albumin/Globulin Ratio 1.3 % 06/15/21 03:56 Triglycerides 189 mg/dL (2-149) H 06/14/21 06:15 Urine Color Yellow (Yellow) 06/12/21 17:00 Urine Turbidity Clear (Clear) 06/12/21 17:00 Urine pH 5.0 (5.0-7.0) 06/12/21 17:00 Ur Specific [place] 1.035 (1.003-1.030) H 06/12/21 17:00 Urine Protein 30 mg/dl mg/dL (Negative) 06/12/21 17:00 Urine Glucose (UA) 50 mg/dL (Negative) 06/12/21 17:00 Urine Ketones Tr mg/dL (Negative) 06/12/21 17:00 Urine Blood Neg (Negative) 06/12/21 17:00 Urine Nitrite Neg (Negative) 06/12/21 17:00 Urine Bilirubin Neg (Negative) 06/12/21 17:00 Urine Urobilinogen < 2.0 mg/dL (<2.0) 06/12/21 17:00 Ur Leukocyte Esterase Neg (Negative) 06/12/21 17:00 Urine WBC (Auto) < 1.0 /HPF (0.0-6.0) 06/12/21 17:00 Urine RBC (Auto) < 1.0 /HPF (0.0-6.0) 06/12/21 17:00 Urine Creatinine 81.1 mg/dL (0.1-20.0) H 06/15/21 10:40 Urine Sodium 42 mmol/L 06/15/21 10:40 Coronavirus (PCR) Negative (Negative) 06/12/21 09:50 Blood Type O POSITIVE 06/11/21 19:20 Antibody Screen Negative 06/11/21 19:20 Crossmatch See Detail 06/11/21 19:20 Microbiology: Microbiology 06/12/21 09:40 Peripheral/Venous Blood Culture - Preliminary NO GROWTH AFTER 72 HOURS 06/12/21 09:40 Peripheral/Venous Blood Culture - Preliminary NO GROWTH AFTER 72 HOURS Lujan/IV: Voiding Method Indwelling Catheter Active Medications - Current Medications Current Medications: Generic Name Dose Route Start Last Admin Trade Name Freq PRN Reason Stop Dose Admin Famotidine 10 mg 06/15/21 22:00 Famotidine 20 Mg/2 Ml Inj IV BID JOLENE Fentanyl 50 mcg 06/11/21 22:55 06/15/21 16:50 Fentanyl 100 Mcg/2 Ml Inj IV 50 mcg Q10MIN PRN Administration ANALGESIA Hydromorphone HCl 0.5 mg 06/11/21 20:42 Hydromorphone 1 Mg/1 Ml Inj IV Q3H PRN Pain , Severe (7-10) Midazolam DRIP Premix 100 mg in 100 mls @ 1 mls/hr 06/11/21 23:00 06/15/21 05:30 Midazolam/Ns 100 Mg/100 Ml IV 0 mg/hr TITR JOLENE 0 mls/hr Titration Protocol 1 MG/HR Fentanyl Citrate 2,000 mcg in 100 mls @ 5.466 mls/hr 06/11/21 23:00 06/15/21 05:46 Fentanyl Drip Premix IV 0 mcg/kg/hr TITR JOLENE 0 mls/hr Titration Protocol 1 MCG/KG/HR Phenylephrine HCl 100 mg/ 100 mls @ 3 mls/hr 06/11/21 23:45 06/14/21 07:00 Sodium Chloride IV 0 mcg/min TITR JOLENE 0 mls/hr Titration Protocol 50 MCG/MIN NORepinephrine/NS 8 MG-250 ML 8 mg in 250 mls @ 3.75 mls/hr 06/12/21 02:00 06/14/21 05:56 Norepinephrine/Ns 8 Mg-250 Ml (Double Conc) IV 0 mcg/min TITRATE JOLENE 0 mls/hr Titration Protocol 2 MCG/MIN Propofol 1,000 mg in 100 mls @ 3.279 mls/hr 06/12/21 03:00 06/15/21 07:04 Diprivan 10 Mg/Ml IV 0 mcg/kg/min TITR JOLENE 0 mls/hr Titration Protocol 5 MCG/KG/MIN Amino Acids 2,000 mls @ 84 mls/hr 06/15/21 20:00 Clinimix 4.25%-10% Solution IV 06/16/21 19:59 ONCE JOLENE Piperacillin Sod/Tazobactam Sod 3.375 gm in 50 mls @ 100 mls/hr 06/15/21 12:00 06/15/21 15:27 Zosyn/Ns 3.375gm/50ml IV 100 mls/hr Q6HR JOLENE Administration Insulin Human Lispro 0 unit 06/12/21 12:00 06/15/21 13:00 Insulin Lispro 100 Unit/Ml SUB-Q 6 unit Q6HR JOLENE Administration Protocol Methylprednisolone Sodium Succinate 125 mg 06/11/21 22:00 06/15/21 15:27 Methylprednisolone Sod Succinate 125 Mg/2 Ml Inj IV 125 mg Q8HR JOLENE Administration Metoclopramide HCl 10 mg 06/11/21 20:42 Metoclopramide 10 Mg/2 Ml Inj IV Q6H PRN Nausea And Vomiting Ondansetron HCl 4 mg 06/11/21 20:42 Ondansetron 4 Mg/2 Ml Inj IV Q3H PRN Nausea And Vomiting Sodium Chloride 10 ml 06/11/21 22:00 06/15/21 10:07 Sodium Chloride 0.9% 10 Ml Flush Syringe IV 10 ml BID JOLENE Administration Sodium Chloride 10 ml 06/11/21 20:42 Sodium Chloride 0.9% 10 Ml Flush Syringe IV PRN PRN LINE FLUSH <EDILBERTO LUCIANO - Last Filed: 06/17/21 12:02> Assessment and Plan Assessment and plan: I saw and evaluated the patient. Discussed with the nurse practitioner and agree with their findings and plan as documented in this note. Hospitalist Physical - Constitutional Vitals: Temp Pulse Resp BP Pulse Ox 97.7 F 52 L 16 132/58 98 06/17/21 08:00 06/17/21 11:15 06/17/21 11:15 06/17/21 11:15 06/17/21 11:15 HEART Score - HEART Score Troponin: Troponin T < 0.010 ng/mL (0.00-0.029) 06/11/21 23:21 Results - Labs CBC & Chem 7: 06/17/21 05:30 06/17/21 05:30 Labs: Laboratory Last Values WBC 7.6 K/mm3 (4.5-11.0) 06/17/21 05:30 RBC 3.17 M/mm3 (3.65-5.03) L 06/17/21 05:30 Hgb 8.2 gm/dl (10.1-14.3) L 06/17/21 05:30 Hct 25.5 % (30.3-42.9) L 06/17/21 05:30 MCV 80 fl (79-97) 06/17/21 05:30 MCH 26 pg (28-32) L 06/17/21 05:30 MCHC 32 % (30-34) 06/17/21 05:30 RDW 21.2 % (13.2-15.2) H 06/17/21 05:30 Plt Count 128 K/mm3 (140-440) L 06/17/21 05:30 Lymph % (Auto) 9.2 % (13.4-35.0) L 06/11/21 19:29 [place]ady % (Auto) 1.4 % (0.0-7.3) 06/11/21 19: Eos % (Auto) 0.2 % (0.0-4.3) 06/11/21 19: Baso % (Auto) 0.2 % (0.0-1.8) 06/11/21 19: Lymph # (Auto) 1.4 K/mm3 (1.2-5.4) 06/11/21 19: [place] # (Auto) 0.2 K/mm3 (0.0-0.8) 06/11/21 19: Eos # (Auto) 0.0 K/mm3 (0.0-0.4) 06/11/21 19: Baso # (Auto) 0.0 K/mm3 (0.0-0.1) 06/11/21 19:29 Add Manual Diff Complete 06/13/21 Unknown Total Counted 100 06/13/21 Unknown Seg Neutrophils % 89.0 % (40.0-70.0) H 06/11/21 19:29 Seg Neuts % (Manual) 88.0 % (40.0-70.0) H 06/13/21 Unknown Band Neutrophils % 2.0 % 06/13/21 Unknown Lymphocytes % (Manual) 4.0 % (13.4-35.0) L 06/13/21 Unknown Reactive Lymphs % (Man) 0 % 06/13/21 Unknown Monocytes % (Manual) 6.0 % (0.0-7.3) 06/13/21 Unknown Eosinophils % (Manual) 0 % (0.0-4.3) 06/13/21 Unknown Basophils % (Manual) 0 % (0.0-1.8) 06/13/21 Unknown Metamyelocytes % 0 % 06/13/21 Unknown Myelocytes % 0 % 06/13/21 Unknown Promyelocytes % 0 % 06/13/21 Unknown Blast Cells % 0 % 06/13/21 Unknown Nucleated RBC % Not Reportable 06/13/21 Unknown Seg Neutrophils # 14.0 K/mm3 (1.8-7.7) H 06/11/21 19:29 Seg Neutrophils # Man 19.8 K/mm3 (1.8-7.7) H 06/13/21 Unknown Band Neutrophils # 0.5 K/mm3 06/13/21 Unknown Lymphocytes # (Manual) 0.9 K/mm3 (1.2-5.4) L 06/13/21 Unknown Abs React Lymphs (Man) 0.0 K/mm3 06/13/21 Unknown Monocytes # (Manual) 1.4 K/mm3 (0.0-0.8) H 06/13/21 Unknown Eosinophils # (Manual) 0.0 K/mm3 (0.0-0.4) 06/13/21 Unknown Basophils # (Manual) 0.0 K/mm3 (0.0-0.1) 06/13/21 Unknown Metamyelocytes # 0.0 K/mm3 06/13/21 Unknown Myelocytes # 0.0 K/mm3 06/13/21 Unknown Promyelocytes # 0.0 K/mm3 06/13/21 Unknown Blast Cells # 0.0 K/mm3 06/13/21 Unknown WBC Morphology Not Reportable 06/13/21 Unknown Hypersegmented Neuts Not Reportable 06/13/21 Unknown Hyposegmented Neuts Not Reportable 06/13/21 Unknown Hypogranular Neuts Not Reportable 06/13/21 Unknown Smudge Cells Not Reportable 06/13/21 Unknown Toxic Granulation 2+ 06/13/21 Unknown Toxic Vacuolation Not Reportable 06/13/21 Unknown Dohle Bodies Not Reportable 06/13/21 Unknown Pelger-Huet Anomaly Not Reportable 06/13/21 Unknown [place] Rods Not Reportable 06/13/21 Unknown Platelet Estimate Consistent w auto 06/13/21 Unknown Clumped Platelets Not Reportable 06/13/21 Unknown Plt Clumps, EDTA Not Reportable 06/13/21 Unknown Large Platelets Not Reportable 06/13/21 Unknown Giant Platelets Not Reportable 06/13/21 Unknown Platelet Satelliting Not Reportable 06/13/21 Unknown Plt Morphology Comment Not Reportable 06/13/21 Unknown RBC Morphology Not Reportable 06/13/21 Unknown Dimorphic RBCs Not Reportable 06/13/21 Unknown Polychromasia Few 06/13/21 Unknown Hypochromasia 2+ 06/13/21 Unknown Poikilocytosis Not Reportable 06/13/21 Unknown Anisocytosis 1+ 06/13/21 Unknown Microcytosis Not Reportable 06/13/21 Unknown Macrocytosis Not Reportable 06/13/21 Unknown Spherocytes Not Reportable 06/13/21 Unknown Pappenheimer Bodies Not Reportable 06/13/21 Unknown Sickle Cells Not Reportable 06/13/21 Unknown Target Cells Not Reportable 06/13/21 Unknown Tear Drop Cells Not Reportable 06/13/21 Unknown Ovalocytes Not Reportable 06/13/21 Unknown Stomatocytes Few 06/12/21 01:45 Helmet Cells Not Reportable 06/13/21 Unknown [place] Bodies Not Reportable 06/13/21 Unknown [place] Rings Not Reportable 06/13/21 Unknown [place] Cells Not Reportable 06/13/21 Unknown Bite Cells Not Reportable 06/13/21 Unknown Crenated Cell Not Reportable 06/13/21 Unknown Elliptocytes Not Reportable 06/13/21 Unknown Acanthocytes (Spur) Not Reportable 06/13/21 Unknown Rouleaux Not Reportable 06/13/21 Unknown Hemoglobin C Crystals Not Reportable 06/13/21 Unknown Schistocytes Not Reportable 06/13/21 Unknown Malaria parasites Not Reportable 06/13/21 Unknown [place]in Bodies Not Reportable 06/13/21 Unknown Hem Pathologist Commnt No 06/13/21 Unknown PT 17.6 Sec. (12.2-14.9) H 06/13/21 Unknown INR 1.31 (0.87-1.13) H 06/13/21 Unknown APTT 26.4 Sec. (24.2-36.6) 06/13/21 Unknown Fibrinogen 546 mg/dl (211-480) H 06/13/21 Unknown D-Dimer 1244.63 ng/mlDDU (0-234) H 06/13/21 Unknown ABG pH 7.479 pH Units (7.350-7.450) H 06/17/21 04:50 POC ABG pCO2 25.6 mmHg (32.0-48.0) L 06/13/21 04:31 ABG pCO2 31.1 mm Hg 06/17/21 04:50 POC ABG pO2 138.8 mmHg (83-108) H 06/13/21 04:31 ABG pO2 143.1 mm Hg (80.0-90.0) H 06/17/21 04:50 POC ABG HCO3 21.4 06/13/21 04:31 ABG HCO3 22.6 mmol/L (20.0-26.0) 06/17/21 04:50 ABG O2 Saturation 98.9 % (95.0-99.0) 06/17/21 04:50 ABG O2 Content 14.0 (0.0-44) 06/17/21 04:50 POC ABG Base Excess -0.7 06/13/21 04:31 ABG Base Excess -0.4 mmol/L (-2.0-3.0) 06/17/21 04:50 ABG Hemoglobin 10.0 gm/dl (12.0-16.0) L 06/17/21 04:50 ABG Oxyhemoglobin 98.1 (94-98) H 06/13/21 04:31 ABG Carboxyhemoglobin 1.1 % (0.0-5.0) 06/17/21 04:50 ABG Methemoglobin 0.5 % (0.0-1.5) 06/17/21 04:50 Oxyhemoglobin 97.2 % (95.0-99.0) 06/17/21 04:50 Carboxyhemoglobin 0.8 (0.5-1.5) 06/13/21 04:31 FiO2 40 % 06/17/21 04:50 FiO2 % 40.0 06/13/21 04:31 Sodium 148 mmol/L (137-145) H 06/17/21 05:30 Potassium 3.7 mmol/L (3.6-5.0) 06/17/21 05:30 Chloride 113.7 mmol/L (98-107) H 06/17/21 05:30 Carbon Dioxide 20 mmol/L (22-30) L 06/17/21 05:30 Anion Gap 18 mmol/L 06/17/21 05:30 BUN 57 mg/dL (7-17) H 06/17/21 05:30 Creatinine 1.4 mg/dL (0.6-1.2) H 06/17/21 05:30 Estimated GFR 44 ml/min 06/17/21 05:30 BUN/Creatinine Ratio 41 % 06/17/21 05:30 Glucose 351 mg/dL (65-100) H 06/17/21 05:30 POC Glucose 324 mg/dL (70-105) H 06/17/21 05:18 Lactic Acid 5.30 mmol/L (0.7-2.0) H* 06/13/21 15:45 Calcium 8.0 mg/dL (8.4-10.2) L 06/17/21 05:30 Phosphorus 2.30 mg/dL (2.5-4.5) L 06/17/21 05:30 Magnesium 2.30 mg/dL (1.7-2.3) 06/17/21 05:30 Total Bilirubin 0.40 mg/dL (0.1-1.2) 06/15/21 03:56 AST 64 units/L (5-40) H 06/15/21 03:56 ALT 106 units/L (7-56) H 06/15/21 03:56 Alkaline Phosphatase 55 units/L (35-129) 06/15/21 03:56 Troponin T < 0.010 ng/mL (0.00-0.029) 06/11/21 23:21 C-Reactive Protein 3.30 mg/dL (0.00-1.30) H 06/16/21 04:32 Total Protein 5.1 g/dL (6.3-8.2) L 06/15/21 03:56 Albumin 2.9 g/dL (3.9-5) L 06/15/21 03:56 Albumin/Globulin Ratio 1.3 % 06/15/21 03:56 Triglycerides 189 mg/dL (2-149) H 06/14/21 06:15 Urine Color Yellow (Yellow) 06/12/21 17:00 Urine Turbidity Clear (Clear) 06/12/21 17:00 Urine pH 5.0 (5.0-7.0) 06/12/21 17:00 Ur Specific [place] 1.035 (1.003-1.030) H 06/12/21 17:00 Urine Protein 30 mg/dl mg/dL (Negative) 06/12/21 17:00 Urine Glucose (UA) 50 mg/dL (Negative) 06/12/21 17:00 Urine Ketones Tr mg/dL (Negative) 06/12/21 17:00 Urine Blood Neg (Negative) 06/12/21 17:00 Urine Nitrite Neg (Negative) 06/12/21 17:00 Urine Bilirubin Neg (Negative) 06/12/21 17:00 Urine Urobilinogen < 2.0 mg/dL (<2.0) 06/12/21 17:00 Ur Leukocyte Esterase Neg (Negative) 06/12/21 17:00 Urine WBC (Auto) < 1.0 /HPF (0.0-6.0) 06/12/21 17:00 Urine RBC (Auto) < 1.0 /HPF (0.0-6.0) 06/12/21 17:00 Urine Creatinine 81.1 mg/dL (0.1-20.0) H 06/15/21 10:40 Urine Sodium 42 mmol/L 06/15/21 10:40 Coronavirus (PCR) Negative (Negative) 06/12/21 09:50 Blood Type O POSITIVE 06/11/21 19:20 Antibody Screen Negative 06/11/21 19:20 Crossmatch See Detail 06/11/21 19:20 Microbiology: Microbiology 06/12/21 09:40 Peripheral/Venous Blood Culture - Final NO GROWTH AFTER 5 DAYS 06/12/21 09:40 Peripheral/Venous Blood Culture - Final NO GROWTH AFTER 5 DAYS Lujan/IV: Voiding Method Indwelling Catheter Active Medications - Current Medications Current Medications: Generic Name Dose Route Start Last Admin Trade Name Freq PRN Reason Stop Dose Admin Famotidine 10 mg 06/15/21 22:00 06/16/21 21:02 Famotidine 20 Mg/2 Ml Inj IV 10 mg BID JOLENE Administration Fentanyl 50 mcg 06/11/21 22:55 06/15/21 16:50 Fentanyl 100 Mcg/2 Ml Inj IV 50 mcg Q10MIN PRN Administration ANALGESIA Hydralazine HCl 10 mg 06/16/21 08:00 06/17/21 05:29 Hydralazine 20 Mg/1 Ml Inj IV 10 mg Q4H PRN Administration Hypertension Hydromorphone HCl 0.5 mg 06/11/21 20:42 Hydromorphone 1 Mg/1 Ml Inj IV Q3H PRN Pain , Severe (7-10) Midazolam DRIP Premix 100 mg in 100 mls @ 1 mls/hr 06/11/21 23:00 06/15/21 17:34 Midazolam/Ns 100 Mg/100 Ml IV 0 mg/hr TITR JOLENE 0 mls/hr Titration Protocol 1 MG/HR Fentanyl Citrate 2,000 mcg in 100 mls @ 5.466 mls/hr 06/11/21 23:00 06/17/21 11:04 Fentanyl Drip Premix IV 4 mcg/kg/hr TITR JOLENE 21.863 mls/hr Titration Protocol 1 MCG/KG/HR Phenylephrine HCl 100 mg/ 100 mls @ 3 mls/hr 06/11/21 23:45 06/14/21 07:00 Sodium Chloride IV 0 mcg/min TITR JOLENE 0 mls/hr Titration Protocol 50 MCG/MIN NORepinephrine/NS 8 MG-250 ML 8 mg in 250 mls @ 3.75 mls/hr 06/12/21 02:00 06/14/21 05:56 Norepinephrine/Ns 8 Mg-250 Ml (Double Conc) IV 0 mcg/min TITRATE JOLENE 0 mls/hr Titration Protocol 2 MCG/MIN Propofol 1,000 mg in 100 mls @ 3.279 mls/hr 06/12/21 03:00 06/17/21 11:05 Diprivan 10 Mg/Ml IV 25 mcg/kg/min TITR JOLENE 16.397 mls/hr Titration Protocol 5 MCG/KG/MIN Piperacillin Sod/Tazobactam Sod 3.375 gm in 50 mls @ 100 mls/hr 06/15/21 12:00 06/17/21 05:30 Zosyn/Ns 3.375gm/50ml IV 100 mls/hr Q6HR JOLENE Administration Amino Acids/Electrolytes/Dextrose 1,999.92 mls @ 83.33 mls/hr 06/16/21 20:00 06/16/21 20:45 Tpn Adult IV 06/17/21 19:59 83.33 mls/hr DAILY@2000 PENDING SALE TO [facility] Administration Protocol Insulin Glargine 15 units 06/17/21 10:00 06/17/21 11:00 Insulin Glargine 100 Units/Ml SUB-Q 15 units BID JOLENE Administration Insulin Human Lispro 0 unit 06/12/21 12:00 06/17/21 05:32 Insulin Lispro 100 Unit/Ml SUB-Q 8 unit Q6HR PENDING SALE TO [facility] Administration Protocol Methylprednisolone Sodium Succinate 125 mg 06/11/21 22:00 06/17/21 05:28 Methylprednisolone Sod Succinate 125 Mg/2 Ml Inj IV 125 mg Q8HR JOLENE Administration Metoclopramide HCl 10 mg 06/11/21 20:42 Metoclopramide 10 Mg/2 Ml Inj IV Q6H PRN Nausea And Vomiting Ondansetron HCl 4 mg 06/11/21 20:42 Ondansetron 4 Mg/2 Ml Inj IV Q3H PRN Nausea And Vomiting Sodium Chloride 10 ml 06/11/21 22:00 06/16/21 21:05 Sodium Chloride 0.9% 10 Ml Flush Syringe IV 10 ml BID JOLENE Administration Sodium Chloride 10 ml 06/11/21 20:42 Sodium Chloride 0.9% 10 Ml Flush Syringe IV PRN PRN LINE FLUSH Nutrition/Malnutrition Assess - Dietary Evaluation Nutrition/Malnutrition Findings: Nutrition Notes Start: 06/16/21 12:10 Freq: Status: Active Protocol: Document 06/16/21 12:10 [facility] (Rec: 06/16/21 12:35 [facility] [id number]) Nutrition Notes Need for Assessment generated from: MD Order Initial or Follow up Assessment Current Diagnosis Diabetes,Sepsis,Hypertension, Respiratory Failure Other Pertinent Diagnosis Jeremiah's angina, (R) pneumothorax, Coagulopathy, s/ p cardiac arrest, gout Current Diet No diet ordered Labs/Tests Na 148 K 3.3 Cl 115.1 CO2 - 21 BUN 54 Cr 1.6 BG 367 Ca 7.4 (adjusted 8.3) Pertinent Medications Clinimix ordered yesterday (4. 25% amino acids/10% dextrose at 84ml/hr), Lantus, Humalog, Solumedrol, Propofol at 3. 279ml/hr (provides 87 kcal) Height 5 ft 8 in Weight 109.316 kg [place] Body Weight (kg) 63.63 BMI 36.6 Weight Status Obese Subjective/Other Information RD consulted for TPN. Pt on vent support; difficult intubation requiring cricothyrotomy. Endotracheal tube was sutured in. MD does not want to insert OGT/NGT at this time given current situation with the neck. Pt will likely need a trach and PEG. PICC line ordered. Percent of energy/protein needs met: 52% energy 68% pro (from Clinimix) Burn Absent Trauma Absent Minimum of two criteria No #1 Nutrition Diagnosis Inadequate oral intake Etiology mech ventilation As Evidenced by Signs and Symptoms pt NPO Is patient on ventilator? Yes Is Patient Ambulatory and/or Out of Bed No REE-([place]-confined to bed) 8838.884 Calculation Used for Recommendations 65-70% energy needs Additional Notes Energy needs: 1280-1379kcal/ day Pro needs 2g/kg IBW: 127g/day Fluid needs 1ml/kcal Nutrition Intervention Nutrition Support: Start PN at 83.33ml/hr: MVI, thiamine, 5% dextrose, 4.3% amino acids, 0mEq Na, 80mEq K, 0mEq Mg, 10mEq Ca, 20mmol Phos, 0% chloride/100% acetate . Osmolality: 765. Kcal 680 Protein (gm) 85 Carbohydrates (gm) 100 Fat (gm) 0 Fluid (mL) 2,000 Fiber (gm) 0 Goal #1 PN to meet nutrient needs as best possible Anticipated Discharge Needs: Unable to identify at this time Follow-Up By: 06/17/21 Additional Comments Labs in am: BMP, Mg, Phos F/U: vent status, trach/PEG placement, propofol, PICC line placement
[2021-06-15] MEDS ORDERED: AMINO ACIDS 4.25%/DEXTROSE 10% 2,000 ML IV SCH (20:00)
[2021-06-15] MEDS: fentaNYL DRIP Premix 2,000 MCG/100 ML BAG IV SCH (21:21)
[2021-06-15] MEDS: hydrALAZINE 20 MG/1 ML INJ IV PRN (22:18)
[2021-06-16] MEDS: PIPERACILLIN/TAZOBACTAM 3.375 3.375 GM/50 ML BAG IV SCH ×3 (00:15→18:11)
[2021-06-16 04:50] LABS: Hematocrit 25.4 % (30.3-42.9); Hemoglobin 8.2 gm/dl (10.1-14.3); Mean Corpuscular HGB Conc 32 % (30-34); Mean Corpuscular Volume 81 fl (79-97); Platelet Count 118 K/mm3 (140-440); Red Blood Count 3.16 M/mm3 (3.65-5.03)
[2021-06-16 05:03] LABS: Red Cell Distribution Width 21.2 % (13.2-15.2)
[2021-06-16 05:04] LABS: Calcium 7.4 mg/dL (8.4-10.2)
[2021-06-16] MEDS: fentaNYL DRIP Premix 2,000 MCG/100 ML BAG IV SCH ×3 (05:28→20:46)
[2021-06-16 06:00] LABS: ABG Base Excess -0.4 mmol/L (-2.0-3.0); ABG HCO3 22.5 mmol/L (20.0-26.0); ABG Methemoglobin 0.6 % (0.0-1.5); ABG Oxygen Saturation 99.1 % (95.0-99.0); ABG PCO2 31.2 mm Hg; ABG PH 7.475 pH Units (7.350-7.450); ABG PO2 171.8 mm Hg (80.0-90.0)
[2021-06-16] MEDS: INSULIN LISPRO 100 UNIT/ML SUB-Q SCH ×3 (06:07→18:14)
[2021-06-16] MEDS: hydrALAZINE 20 MG/1 ML INJ IV PRN ×2 (06:07→08:42)
[2021-06-16] MEDS: POTASSIUM CHLORIDE 20 MEQ 20 MEQ/100 ML BAG IV SCH ×2 (08:56→10:34)
[2021-06-16] MEDS ORDERED: INSULIN REGULAR, HUMAN 100 UNITS/1 ML IV ONE (09:00)
[2021-06-16] MEDS ORDERED: INSULIN GLARGINE 100 UNITS/ML SUB-Q ONE (09:30)
[2021-06-16] MEDS ORDERED: LACTATED RINGERS 1,000 ML IV ONE (10:35)
[2021-06-16] MEDS: FAMOTIDINE 20 MG/2 ML INJ IV SCH ×2 (10:40→21:02)
--- NOTE | 2021-06-16 10:47 | Progress Note ---
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 06/16/21: Renal function improved with fluids. IMS to give more fluids (LR) today which I agree with. FeNa is =0.7. Should be fluid responsive. Continue clinimix. Needs long acting insulin. Agree with lantus. Asked nursing to increase sedation now that we know that patient's mental status is stable. Picc today. Air leak test vs Neck CT on tomorrow. 06/15/21: Hopeful with worsening renal function ( likely from code on yesterday) that sedatives are just lingering from that. Still making good urine but output has fallen off. Will send urine sodium and urine cr to check Fena. Most likely this is prerenal. ordered renal ultrasound as well. Continue abx and steroids. Will start clinimix today. This should help with the free water piece. Will give another liter bolus of LR right now. Keep sedation off for now. Guarded prognosis. 06/14/21: Will discuss with surgery future plans. They have ordered steroids to help with inflammation and abx continue. All others appears stable and no acute evidence of bleeding at this time. Follow up surgery recs if any new ones. Guarded prognosis. 06/13/21: Patient to back to OR today. BLood transfusion. Will send DIC panel and may need to given cryo if over 6 units of PRBC's given. Patient will likely need trach and peg as we need to address nutrition. Chest tube placed, large bore now. Patient now with right sided effusion. Hemothorax???. Will continue to monitor output. Needs picc line as femoral should come out soon. Continue pressors. Continue sedation for pain control and comfort. Guarded prognosis. Surgery comfortable with neck and current situation so they have not request transfer. 1. Placed right femoral central line. pressors can run through this. 2. Repeat chemistry stat given bicarb of 8 and blood sugar of greater than 600. Ordering FSBS now. Earlier bicarb was 25. If accurate will need bicarb drip and vasopressin but not sure as pH on blood gas was normal done around the same time. 3. Coagulopathy is improving. INR down to 4.55 and PTT and pT improving. Will continue to give FFP. Ordered more vitamin K. H/H is stable but patient is oozing from neck and mouth. 4. Vasopressor for blood pressure. Need to keep map 65 and greater 5. Lujan is needed for accurate I/O 6. Surgery called by IMS about current CT situation. They state they will reassess in the am. I have reviewed the images myself. If I can position the patient safely without compromising the airway after adequate sedation, may consider placing chest tube now as INR is better and FFP is hanging. Patient is morbidly obese so shits could move the ET tube so if not safe, will wait until surgery comes in the morning. 7. Would not attempt to pass OG or NG tube given current situation in neck 8. Will discuss with surgery tomorrow but I feel this patient should be transferred to a tertiary care facility with ENT as we do not have that service here. CCT 31 minutes. Subjective Date of service: 06/16/21 Interval history: Patient awake and alert. Follows commands on fent. hypertensive. Picc team at bedside. Objective Vital Signs - 12hr 06/15/21 06/15/21 06/15/21 22:45 23:00 23:16 Temperature Pulse Rate 61 62 76 Pulse Rate [ From Monitor] Respiratory 22 22 21 Rate Blood Pressure 129/63 128/63 155/78 O2 Sat by Pulse 100 100 100 Oximetry 06/15/21 06/15/21 06/15/21 23:22 23:30 23:33 Temperature Pulse Rate 71 66 66 Pulse Rate [ From Monitor] Respiratory 22 22 Rate Blood Pressure 155/78 138/69 138/69 O2 Sat by Pulse 100 100 100 Oximetry 06/15/21 06/15/21 06/16/21 23:45 23:54 00:00 Temperature 99.1 F Pulse Rate 55 L 57 L Pulse Rate [ 50 L From Monitor] Respiratory 22 22 Rate Blood Pressure 131/63 135/67 O2 Sat by Pulse 100 100 Oximetry 06/16/21 06/16/21 06/16/21 00:15 00:30 00:39 Temperature Pulse Rate 56 L 51 L 52 L Pulse Rate [ From Monitor] Respiratory 22 22 Rate Blood Pressure 139/67 140/68 O2 Sat by Pulse 100 100 Oximetry 06/16/21 06/16/21 06/16/21 00:45 01:00 01:15 Temperature Pulse Rate 53 L 49 L 57 L Pulse Rate [ From Monitor] Respiratory 22 Rate Blood Pressure 135/68 142/67 146/78 O2 Sat by Pulse 100 100 100 Oximetry 06/16/21 06/16/21 06/16/21 01:30 01:45 02:00 Temperature Pulse Rate 51 L 50 L 48 L Pulse Rate [ From Monitor] Respiratory 22 22 Rate Blood Pressure 142/68 143/67 148/67 O2 Sat by Pulse 100 100 100 Oximetry 06/16/21 06/16/21 06/16/21 02:15 02:30 02:45 Temperature Pulse Rate 49 L 51 L 45 L Pulse Rate [ From Monitor] Respiratory 22 Rate Blood Pressure 138/68 146/70 139/64 O2 Sat by Pulse 100 100 100 Oximetry 06/16/21 06/16/21 06/16/21 03:00 03:15 03:30 Temperature Pulse Rate 49 L 46 L 52 L Pulse Rate [ From Monitor] Respiratory 22 Rate Blood Pressure 142/68 137/67 141/74 O2 Sat by Pulse 100 100 100 Oximetry 06/16/21 06/16/21 06/16/21 03:40 03:45 04:00 Temperature 99.4 F Pulse Rate 51 L 46 L Pulse Rate [ 50 L From Monitor] Respiratory 22 22 Rate Blood Pressure 144/73 145/68 O2 Sat by Pulse 100 100 Oximetry 06/16/21 06/16/21 06/16/21 04:15 04:30 04:45 Temperature Pulse Rate 49 L 48 L 54 L Pulse Rate [ From Monitor] Respiratory 22 Rate Blood Pressure 144/77 151/86 151/73 O2 Sat by Pulse 100 100 100 Oximetry 06/16/21 06/16/21 06/16/21 04:50 05:00 05:15 Temperature Pulse Rate 47 L 47 L 53 L Pulse Rate [ From Monitor] Respiratory 22 22 Rate Blood Pressure 148/75 150/72 O2 Sat by Pulse 100 100 Oximetry 06/16/21 06/16/21 06/16/21 05:28 05:30 05:46 Temperature Pulse Rate 51 L 54 L 47 L Pulse Rate [ From Monitor] Respiratory 22 22 Rate Blood Pressure 150/72 150/72 155/74 O2 Sat by Pulse 100 100 100 Oximetry 06/16/21 06/16/21 06/16/21 06:00 06:15 06:30 Temperature Pulse Rate 50 L 61 61 Pulse Rate [ From Monitor] Respiratory 22 Rate Blood Pressure 153/71 158/71 129/54 O2 Sat by Pulse 100 100 100 Oximetry 06/16/21 06/16/21 06/16/21 06:45 07:00 07:15 Temperature Pulse Rate 65 64 54 L Pulse Rate [ From Monitor] Respiratory 22 Rate Blood Pressure 132/62 137/62 126/54 O2 Sat by Pulse 100 100 100 Oximetry 06/16/21 06/16/21 06/16/21 07:30 07:45 08:00 Temperature 98.2 F Pulse Rate 54 L 48 L 59 L Pulse Rate [ 55 L From Monitor] Respiratory Rate Blood Pressure 129/57 134/61 142/69 O2 Sat by Pulse 100 100 100 Oximetry 06/16/21 06/16/21 06/16/21 08:15 08:30 08:40 Temperature Pulse Rate 46 L 66 77 Pulse Rate [ From Monitor] Respiratory 22 18 Rate Blood Pressure 143/61 143/61 124/54 O2 Sat by Pulse 100 100 100 Oximetry 06/16/21 06/16/21 06/16/21 08:42 08:45 09:00 Temperature Pulse Rate 59 L 69 73 Pulse Rate [ From Monitor] Respiratory 15 17 Rate Blood Pressure 198/73 162/80 134/61 O2 Sat by Pulse 100 100 Oximetry Constitutional: alert, appears uncomfortable Eyes: non-icteric ENT: other (patient with blood oozing from mouth but not able to open it voluntarily) Neck: other (covered in dressing, ET tube is anterior but I am not moving secondary to instability) Ascultation: Bilateral: clear Percussion: Bilateral: not dull Cardiovascular: regular rate and rhythm Gastrointestinal: normoactive bowel sounds, soft Extremities: no edema Neurologic: normal mental status CBC and BMP: 06/16/21 04:32 06/16/21 04:32 ABG, PT/INR, D-dimer: ABG ABG pH 7.475 pH Units (7.350-7.450) H 06/16/21 05:30 POC ABG pCO2 25.6 mmHg (32.0-48.0) L 06/13/21 04:31 ABG pCO2 31.2 mm Hg 06/16/21 05:30 POC ABG pO2 138.8 mmHg (83-108) H 06/13/21 04:31 ABG pO2 171.8 mm Hg (80.0-90.0) H 06/16/21 05:30 POC ABG HCO3 21.4 06/13/21 04:31 ABG O2 Saturation 99.1 % (95.0-99.0) H 06/16/21 05:30 PT/INR, D-dimer PT 17.6 Sec. (12.2-14.9) H 06/13/21 Unknown INR 1.31 (0.87-1.13) H 06/13/21 Unknown D-Dimer 1244.63 ng/mlDDU (0-234) H 06/13/21 Unknown Abnormal lab findings: Abnormal Labs 06/11/21 06/11/21 06/11/21 15:23 15:23 19:20 WBC 12.0 H RBC Hgb Hct MCV 72 L MCH 21 L RDW 17.5 H Plt Count Lymph % (Auto) 12.9 L [place] % (Auto) 8.6 H [place] # (Auto) 1.0 H Seg Neutrophils % 77.4 H Seg Neuts % (Manual) Lymphocytes % (Manual) Monocytes % (Manual) Seg Neutrophils # 9.3 H Seg Neutrophils # Man Lymphocytes # (Manual) Monocytes # (Manual) PT INR APTT Fibrinogen D-Dimer ABG pH POC ABG pCO2 POC ABG pO2 ABG pO2 ABG HCO3 ABG O2 Saturation ABG Base Excess ABG Hemoglobin ABG Oxyhemoglobin Oxyhemoglobin Sodium Potassium Chloride Carbon Dioxide BUN Creatinine Glucose 144 H POC Glucose Lactic Acid Calcium AST ALT Alkaline Phosphatase C-Reactive Protein Total Protein Albumin Triglycerides Ur Specific [place] Urine Creatinine Crossmatch See Detail 06/11/21 06/11/21 06/11/21 19:29 19:29 23:21 WBC 15.8 H RBC Hgb 9.4 L Hct MCV 72 L MCH 22 L RDW 17.4 H Plt Count Lymph % (Auto) 9.2 L [place] % (Auto) [place] # (Auto) Seg Neutrophils % 89.0 H Seg Neuts % (Manual) Lymphocytes % (Manual) Monocytes % (Manual) Seg Neutrophils # 14.0 H Seg Neutrophils # Man Lymphocytes # (Manual) Monocytes # (Manual) PT 72.9 H INR 8.18 H* APTT 71.7 H* Fibrinogen D-Dimer ABG pH POC ABG pCO2 POC ABG pO2 ABG pO2 ABG HCO3 ABG O2 Saturation ABG Base Excess ABG Hemoglobin ABG Oxyhemoglobin Oxyhemoglobin Sodium 149 H D Potassium Chloride 124.3 H Carbon Dioxide 8 L* D BUN Creatinine 0.3 L Glucose 628 H* POC Glucose Lactic Acid Calcium 2.4 L* D AST ALT < 5 L Alkaline Phosphatase 19 L C-Reactive Protein Total Protein 1.6 L D Albumin 0.8 L Triglycerides Ur Specific [place] Urine Creatinine Crossmatch 06/11/21 06/11/21 06/11/21 23:21 23:22 23:42 WBC RBC Hgb Hct MCV MCH 27 L RDW 22.2 H Plt Count 131 L Lymph % (Auto) [place] % (Auto) [place] # (Auto) Seg Neutrophils % Seg Neuts % (Manual) Lymphocytes % (Manual) Monocytes % (Manual) Seg Neutrophils # Seg Neutrophils # Man Lymphocytes # (Manual) Monocytes # (Manual) PT 46.3 H INR 4.55 H APTT 54.8 H Fibrinogen D-Dimer ABG pH POC ABG pCO2 POC ABG pO2 325.9 H ABG pO2 ABG HCO3 ABG O2 Saturation ABG Base Excess ABG Hemoglobin 8.0 L ABG Oxyhemoglobin 99.0 H Oxyhemoglobin Sodium Potassium Chloride Carbon Dioxide BUN Creatinine Glucose POC Glucose Lactic Acid Calcium AST ALT Alkaline Phosphatase C-Reactive Protein Total Protein Albumin Triglycerides Ur Specific [place] Urine Creatinine Crossmatch 06/12/21 06/12/21 06/12/21 01:45 01:45 01:45 WBC 21.6 H RBC 3.04 L Hgb 6.7 L D Hct 22.4 L D MCV 74 L MCH 22 L RDW 18.9 H Plt Count Lymph % (Auto) [place] % (Auto) [place] # (Auto) Seg Neutrophils % Seg Neuts % (Manual) 76.0 H Lymphocytes % (Manual) 2.0 L Monocytes % (Manual) 8.0 H Seg Neutrophils # Seg Neutrophils # Man 16.4 H Lymphocytes # (Manual) 0.4 L Monocytes # (Manual) 1.7 H PT 25.4 H INR 2.10 H APTT Fibrinogen D-Dimer ABG pH POC ABG pCO2 POC ABG pO2 ABG pO2 ABG HCO3 ABG O2 Saturation ABG Base Excess ABG Hemoglobin ABG Oxyhemoglobin Oxyhemoglobin Sodium Potassium 5.6 H D Chloride Carbon Dioxide 20 L D BUN Creatinine Glucose 368 H POC Glucose Lactic Acid Calcium 7.1 L D AST ALT Alkaline Phosphatase C-Reactive Protein Total Protein 5.3 L D Albumin 3.1 L Triglycerides Ur Specific [place] Urine Creatinine Crossmatch 06/12/21 06/12/21 06/12/21 02:05 04:41 11:05 WBC 14.6 H RBC 3.52 L Hgb 8.5 L Hct 27.7 L MCV MCH 24 L RDW 20.9 H Plt Count Lymph % (Auto) [place] % (Auto) [place] # (Auto) Seg Neutrophils % Seg Neuts % (Manual) Lymphocytes % (Manual) Monocytes % (Manual) Seg Neutrophils # Seg Neutrophils # Man Lymphocytes # (Manual) Monocytes # (Manual) PT INR APTT Fibrinogen D-Dimer ABG pH POC ABG pCO2 POC ABG pO2 224.6 H ABG pO2 ABG HCO3 ABG O2 Saturation ABG Base Excess ABG Hemoglobin 7.3 L ABG Oxyhemoglobin 98.7 H Oxyhemoglobin Sodium Potassium Chloride Carbon Dioxide BUN Creatinine Glucose POC Glucose 308 H Lactic Acid Calcium AST ALT Alkaline Phosphatase C-Reactive Protein Total Protein Albumin Triglycerides Ur Specific [place] Urine Creatinine Crossmatch 06/12/21 06/12/21 06/12/21 11:05 11:05 12:18 WBC RBC Hgb Hct MCV MCH RDW Plt Count Lymph % (Auto) [place] % (Auto) [place] # (Auto) Seg Neutrophils % Seg Neuts % (Manual) Lymphocytes % (Manual) Monocytes % (Manual) Seg Neutrophils # Seg Neutrophils # Man Lymphocytes # (Manual) Monocytes # (Manual) PT 16.8 H INR 1.23 H APTT Fibrinogen D-Dimer ABG pH POC ABG pCO2 POC ABG pO2 ABG pO2 ABG HCO3 ABG O2 Saturation ABG Base Excess ABG Hemoglobin ABG Oxyhemoglobin Oxyhemoglobin Sodium Potassium Chloride Carbon Dioxide BUN 24 H Creatinine Glucose 324 H POC Glucose 281 H Lactic Acid Calcium 7.5 L AST 70 H ALT 57 H Alkaline Phosphatase C-Reactive Protein Total Protein 6.0 L Albumin 3.6 L Triglycerides Ur Specific [place] Urine Creatinine Crossmatch 06/12/21 06/12/21 06/12/21 17:00 17:00 17:00 WBC RBC Hgb 7.5 L Hct 24.0 L MCV MCH RDW Plt Count Lymph % (Auto) [place] % (Auto) [place] # (Auto) Seg Neutrophils % Seg Neuts % (Manual) Lymphocytes % (Manual) Monocytes % (Manual) Seg Neutrophils # Seg Neutrophils # Man Lymphocytes # (Manual) Monocytes # (Manual) PT 16.0 H INR 1.16 H APTT Fibrinogen D-Dimer ABG pH POC ABG pCO2 POC ABG pO2 ABG pO2 ABG HCO3 ABG O2 Saturation ABG Base Excess ABG Hemoglobin ABG Oxyhemoglobin Oxyhemoglobin Sodium Potassium Chloride Carbon Dioxide BUN Creatinine Glucose POC Glucose Lactic Acid Calcium AST ALT Alkaline Phosphatase C-Reactive Protein Total Protein Albumin Triglycerides Ur Specific [place] 1.035 H Urine Creatinine Crossmatch 06/12/21 06/12/21 06/12/21 18:06 23:00 23:05 WBC RBC Hgb 7.6 L Hct 23.5 L MCV MCH RDW Plt Count Lymph % (Auto) [place] % (Auto) [place] # (Auto) Seg Neutrophils % Seg Neuts % (Manual) Lymphocytes % (Manual) Monocytes % (Manual) Seg Neutrophils # Seg Neutrophils # Man Lymphocytes # (Manual) Monocytes # (Manual) PT INR APTT Fibrinogen D-Dimer ABG pH POC ABG pCO2 POC ABG pO2 ABG pO2 ABG HCO3 ABG O2 Saturation ABG Base Excess ABG Hemoglobin ABG Oxyhemoglobin Oxyhemoglobin Sodium Potassium Chloride Carbon Dioxide BUN Creatinine Glucose POC Glucose 257 H 300 H Lactic Acid Calcium AST ALT Alkaline Phosphatase C-Reactive Protein Total Protein Albumin Triglycerides Ur Specific [place] Urine Creatinine Crossmatch 06/13/21 06/13/21 06/13/21 04:31 05:19 07:30 WBC RBC Hgb 6.8 L Hct 21.7 L MCV MCH RDW Plt Count Lymph % (Auto) [place] % (Auto) [place] # (Auto) Seg Neutrophils % Seg Neuts % (Manual) Lymphocytes % (Manual) Monocytes % (Manual) Seg Neutrophils # Seg Neutrophils # Man Lymphocytes # (Manual) Monocytes # (Manual) PT INR APTT Fibrinogen D-Dimer ABG pH 7.541 H POC ABG pCO2 25.6 L POC ABG pO2 138.8 H ABG pO2 ABG HCO3 ABG O2 Saturation ABG Base Excess ABG Hemoglobin 7.3 L ABG Oxyhemoglobin 98.1 H Oxyhemoglobin Sodium Potassium Chloride Carbon Dioxide BUN Creatinine Glucose POC Glucose 286 H Lactic Acid Calcium AST ALT Alkaline Phosphatase C-Reactive Protein Total Protein Albumin Triglycerides Ur Specific [place] Urine Creatinine Crossmatch 06/13/21 06/13/21 06/13/21 07:30 12:04 14:50 WBC RBC Hgb Hct MCV MCH RDW Plt Count Lymph % (Auto) [place] % (Auto) [place] # (Auto) Seg Neutrophils % Seg Neuts % (Manual) Lymphocytes % (Manual) Monocytes % (Manual) Seg Neutrophils # Seg Neutrophils # Man Lymphocytes # (Manual) Monocytes # (Manual) PT INR APTT Fibrinogen D-Dimer ABG pH 7.039 L* 7.182 L* POC ABG pCO2 POC ABG pO2 ABG pO2 63.1 L ABG HCO3 17.4 L ABG O2 Saturation 73.4 L ABG Base Excess -12.6 L -7.1 L ABG Hemoglobin 7.7 L 6.9 L ABG Oxyhemoglobin Oxyhemoglobin 71.8 L 93.5 L Sodium Potassium Chloride 108.9 H Carbon Dioxide BUN 28 H Creatinine Glucose 293 H POC Glucose Lactic Acid Calcium 7.2 L AST 106 H ALT 92 H Alkaline Phosphatase C-Reactive Protein Total Protein 5.6 L Albumin 3.3 L Triglycerides Ur Specific [place] Urine Creatinine Crossmatch 06/13/21 06/13/21 06/13/21 14:54 15:45 17:34 WBC RBC Hgb Hct MCV MCH RDW Plt Count Lymph % (Auto) [place] % (Auto) [place] # (Auto) Seg Neutrophils % Seg Neuts % (Manual) Lymphocytes % (Manual) Monocytes % (Manual) Seg Neutrophils # Seg Neutrophils # Man Lymphocytes # (Manual) Monocytes # (Manual) PT INR APTT Fibrinogen D-Dimer ABG pH POC ABG pCO2 POC ABG pO2 ABG pO2 178.4 H ABG HCO3 ABG O2 Saturation 99.1 H ABG Base Excess ABG Hemoglobin 8.0 L ABG Oxyhemoglobin Oxyhemoglobin Sodium Potassium Chloride 107.3 H Carbon Dioxide 19 L BUN 33 H Creatinine 1.5 H Glucose 379 H POC Glucose Lactic Acid 5.30 H* Calcium 6.8 L AST ALT Alkaline Phosphatase C-Reactive Protein Total Protein Albumin Triglycerides Ur Specific [place] Urine Creatinine Crossmatch 06/13/21 06/13/21 06/13/21 17:40 23:29 Unknown WBC 22.5 H RBC 3.16 L Hgb 8.0 L Hct 26.0 L MCV MCH 26 L RDW 21.4 H Plt Count Lymph % (Auto) [place] % (Auto) [place] # (Auto) Seg Neutrophils % Seg Neuts % (Manual) 88.0 H Lymphocytes % (Manual) 4.0 L Monocytes % (Manual) Seg Neutrophils # Seg Neutrophils # Man 19.8 H Lymphocytes # (Manual) 0.9 L Monocytes # (Manual) 1.4 H PT INR APTT Fibrinogen D-Dimer ABG pH POC ABG pCO2 POC ABG pO2 ABG pO2 ABG HCO3 ABG O2 Saturation ABG Base Excess ABG Hemoglobin ABG Oxyhemoglobin Oxyhemoglobin Sodium Potassium Chloride Carbon Dioxide BUN Creatinine Glucose POC Glucose 294 H 288 H Lactic Acid Calcium AST ALT Alkaline Phosphatase C-Reactive Protein Total Protein Albumin Triglycerides Ur Specific [place] Urine Creatinine Crossmatch 06/13/21 06/14/21 06/14/21 Unknown 05:39 06:15 WBC RBC 2.93 L Hgb 7.2 L Hct 23.2 L MCV MCH 25 L RDW 21.2 H Plt Count Lymph % (Auto) [place] % (Auto) [place] # (Auto) Seg Neutrophils % Seg Neuts % (Manual) Lymphocytes % (Manual) Monocytes % (Manual) Seg Neutrophils # Seg Neutrophils # Man Lymphocytes # (Manual) Monocytes # (Manual) PT 17.6 H INR 1.31 H APTT Fibrinogen 546 H D-Dimer 1244.63 H ABG pH POC ABG pCO2 POC ABG pO2 ABG pO2 ABG HCO3 ABG O2 Saturation ABG Base Excess ABG Hemoglobin ABG Oxyhemoglobin Oxyhemoglobin Sodium Potassium Chloride Carbon Dioxide BUN Creatinine Glucose POC Glucose 246 H Lactic Acid Calcium AST ALT Alkaline Phosphatase C-Reactive Protein Total Protein Albumin Triglycerides Ur Specific [place] Urine Creatinine Crossmatch 06/14/21 06/14/21 06/14/21 06:15 06:15 09:13 WBC RBC Hgb Hct MCV MCH RDW Plt Count Lymph % (Auto) [place] % (Auto) [place] # (Auto) Seg Neutrophils % Seg Neuts % (Manual) Lymphocytes % (Manual) Monocytes % (Manual) Seg Neutrophils # Seg Neutrophils # Man Lymphocytes # (Manual) Monocytes # (Manual) PT INR APTT Fibrinogen D-Dimer ABG pH POC ABG pCO2 POC ABG pO2 ABG pO2 183.0 H ABG HCO3 ABG O2 Saturation 99.2 H ABG Base Excess ABG Hemoglobin 6.6 L ABG Oxyhemoglobin Oxyhemoglobin Sodium 147 H Potassium Chloride 112.5 H Carbon Dioxide 21 L BUN 36 H Creatinine 1.4 H Glucose 281 H POC Glucose Lactic Acid Calcium 6.9 L AST ALT Alkaline Phosphatase C-Reactive Protein Total Protein Albumin Triglycerides 189 H Ur Specific [place] Urine Creatinine Crossmatch 06/14/21 06/14/21 06/14/21 10:45 12:16 13:30 WBC RBC Hgb 7.1 L Hct 22.3 L MCV MCH RDW Plt Count Lymph % (Auto) [place] % (Auto) [place] # (Auto) Seg Neutrophils % Seg Neuts % (Manual) Lymphocytes % (Manual) Monocytes % (Manual) Seg Neutrophils # Seg Neutrophils # Man Lymphocytes # (Manual) Monocytes # (Manual) PT INR APTT Fibrinogen D-Dimer ABG pH 7.205 L POC ABG pCO2 POC ABG pO2 ABG pO2 261.3 H ABG HCO3 ABG O2 Saturation 99.4 H ABG Base Excess -7.2 L ABG Hemoglobin 7.6 L ABG Oxyhemoglobin Oxyhemoglobin Sodium Potassium Chloride Carbon Dioxide BUN Creatinine Glucose POC Glucose 174 H Lactic Acid Calcium AST ALT Alkaline Phosphatase C-Reactive Protein Total Protein Albumin Triglycerides Ur Specific [place] Urine Creatinine Crossmatch 06/14/21 06/14/21 06/15/21 17:40 18:43 00:06 WBC RBC Hgb Hct MCV MCH RDW Plt Count Lymph % (Auto) [place] % (Auto) [place] # (Auto) Seg Neutrophils % Seg Neuts % (Manual) Lymphocytes % (Manual) Monocytes % (Manual) Seg Neutrophils # Seg Neutrophils # Man Lymphocytes # (Manual) Monocytes # (Manual) PT INR APTT Fibrinogen D-Dimer ABG pH 7.292 L POC ABG pCO2 POC ABG pO2 ABG pO2 78.8 L ABG HCO3 ABG O2 Saturation ABG Base Excess -5.0 L ABG Hemoglobin 9.1 L ABG Oxyhemoglobin Oxyhemoglobin 93.7 L Sodium Potassium Chloride Carbon Dioxide BUN Creatinine Glucose POC Glucose 182 H 144 H Lactic Acid Calcium AST ALT Alkaline Phosphatase C-Reactive Protein Total Protein Albumin Triglycerides Ur Specific [place] Urine Creatinine Crossmatch 06/15/21 06/15/21 06/15/21 03:55 03:56 10:40 WBC RBC Hgb 8.4 L Hct 25.8 L MCV MCH RDW Plt Count Lymph % (Auto) [place] % (Auto) [place] # (Auto) Seg Neutrophils % Seg Neuts % (Manual) Lymphocytes % (Manual) Monocytes % (Manual) Seg Neutrophils # Seg Neutrophils # Man Lymphocytes # (Manual) Monocytes # (Manual) PT INR APTT Fibrinogen D-Dimer ABG pH POC ABG pCO2 POC ABG pO2 ABG pO2 ABG HCO3 ABG O2 Saturation ABG Base Excess ABG Hemoglobin ABG Oxyhemoglobin Oxyhemoglobin Sodium 147 H Potassium Chloride 112.2 H Carbon Dioxide 21 L BUN 47 H Creatinine 1.9 H Glucose 272 H POC Glucose Lactic Acid Calcium 7.3 L AST 64 H ALT 106 H Alkaline Phosphatase C-Reactive Protein Total Protein 5.1 L Albumin 2.9 L Triglycerides Ur Specific [place] Urine Creatinine 81.1 H Crossmatch 06/15/21 06/15/21 06/15/21 11:46 17:16 23:17 WBC RBC Hgb Hct MCV MCH RDW Plt Count Lymph % (Auto) [place] % (Auto) [place] # (Auto) Seg Neutrophils % Seg Neuts % (Manual) Lymphocytes % (Manual) Monocytes % (Manual) Seg Neutrophils # Seg Neutrophils # Man Lymphocytes # (Manual) Monocytes # (Manual) PT INR APTT Fibrinogen D-Dimer ABG pH POC ABG pCO2 POC ABG pO2 ABG pO2 ABG HCO3 ABG O2 Saturation ABG Base Excess ABG Hemoglobin ABG Oxyhemoglobin Oxyhemoglobin Sodium Potassium Chloride Carbon Dioxide BUN Creatinine Glucose POC Glucose 271 H 268 H 264 H Lactic Acid Calcium AST ALT Alkaline Phosphatase C-Reactive Protein Total Protein Albumin Triglycerides Ur Specific [place] Urine Creatinine Crossmatch 06/15/21 06/15/21 06/16/21 Unknown Unknown 04:32 WBC RBC 3.21 L 3.16 L Hgb 8.4 L 8.2 L Hct 26.1 L 25.4 L MCV MCH 26 L 26 L RDW 21.3 H 21.2 H Plt Count 105 L 118 L Lymph % (Auto) [place] % (Auto) [place] # (Auto) Seg Neutrophils % Seg Neuts % (Manual) Lymphocytes % (Manual) Monocytes % (Manual) Seg Neutrophils # Seg Neutrophils # Man Lymphocytes # (Manual) Monocytes # (Manual) PT INR APTT Fibrinogen D-Dimer ABG pH 7.465 H POC ABG pCO2 POC ABG pO2 ABG pO2 114.1 H ABG HCO3 ABG O2 Saturation ABG Base Excess ABG Hemoglobin 8.4 L ABG Oxyhemoglobin Oxyhemoglobin Sodium Potassium Chloride Carbon Dioxide BUN Creatinine Glucose POC Glucose Lactic Acid Calcium AST ALT Alkaline Phosphatase C-Reactive Protein Total Protein Albumin Triglycerides Ur Specific [place] Urine Creatinine Crossmatch 06/16/21 06/16/21 06/16/21 04:32 04:32 05:08 WBC RBC Hgb Hct MCV MCH RDW Plt Count Lymph % (Auto) [place] % (Auto) [place] # (Auto) Seg Neutrophils % Seg Neuts % (Manual) Lymphocytes % (Manual) Monocytes % (Manual) Seg Neutrophils # Seg Neutrophils # Man Lymphocytes # (Manual) Monocytes # (Manual) PT INR APTT Fibrinogen D-Dimer ABG pH POC ABG pCO2 POC ABG pO2 ABG pO2 ABG HCO3 ABG O2 Saturation ABG Base Excess ABG Hemoglobin ABG Oxyhemoglobin Oxyhemoglobin Sodium 148 H Potassium 3.3 L Chloride 115.1 H Carbon Dioxide 21 L BUN 54 H Creatinine 1.6 H Glucose 367 H POC Glucose 356 H Lactic Acid Calcium 7.4 L AST ALT Alkaline Phosphatase C-Reactive Protein 3.30 H Total Protein Albumin Triglycerides Ur Specific [place] Urine Creatinine Crossmatch 06/16/21 05:30 WBC RBC Hgb Hct MCV MCH RDW Plt Count Lymph % (Auto) [place] % (Auto) [place] # (Auto) Seg Neutrophils % Seg Neuts % (Manual) Lymphocytes % (Manual) Monocytes % (Manual) Seg Neutrophils # Seg Neutrophils # Man Lymphocytes # (Manual) Monocytes # (Manual) PT INR APTT Fibrinogen D-Dimer ABG pH 7.475 H POC ABG pCO2 POC ABG pO2 ABG pO2 171.8 H ABG HCO3 ABG O2 Saturation 99.1 H ABG Base Excess ABG Hemoglobin 11.7 L ABG Oxyhemoglobin Oxyhemoglobin Sodium Potassium Chloride Carbon Dioxide BUN Creatinine Glucose POC Glucose Lactic Acid Calcium AST ALT Alkaline Phosphatase C-Reactive Protein Total Protein Albumin Triglycerides Ur Specific [place] Urine Creatinine Crossmatch
--- NOTE | 2021-06-16 13:02 | Progress Note ---
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 Continue IV antibiotics and observation with ventilatory support. The neck exploration appears stable at this time without further signs of bleeding. Chest x-rays are also with resolution of pneumothorax and decreasing amounts of subcu emphysema. We will reassess the airway on Thursday to see if any further support is required. Chest x-ray reviewed showing good position of the chest tube. No obvious signs of mediastinal air on the chest x-ray. CT of the chest is pending. Description of care given to the family via Tk Suarez who is a [id number] and of Srinivas Suarez the oldest brother of the family. Attempt was made to call Nikki Garcia the patient's sister as [phone] however the line was busy and I was unable to leave a message for her. Subjective Date of service: 06/16/21 Narrative: Patient remains intubated. She has alternating periods of bradycardia but continued to have good systemic blood pressure despite this. Additional observations at bedside include increasing amounts of ecchymosis into the left chest wall and left breast. Chest x-ray this morning with good position of chest tube. Objective Vital Signs - 12hr 06/16/21 06/16/21 06/16/21 01:00 01:15 01:30 Temperature Pulse Rate 49 L 57 L 51 L Pulse Rate [ From Monitor] Respiratory 22 22 22 Rate Blood Pressure 142/67 146/78 142/68 O2 Sat by Pulse 100 100 100 Oximetry 06/16/21 06/16/21 06/16/21 01:45 02:00 02:15 Temperature Pulse Rate 50 L 48 L 49 L Pulse Rate [ From Monitor] Respiratory 22 22 22 Rate Blood Pressure 143/67 148/67 138/68 O2 Sat by Pulse 100 100 100 Oximetry 06/16/21 06/16/21 06/16/21 02:30 02:45 03:00 Temperature Pulse Rate 51 L 45 L 49 L Pulse Rate [ From Monitor] Respiratory 22 22 22 Rate Blood Pressure 146/70 139/64 142/68 O2 Sat by Pulse 100 100 100 Oximetry 06/16/21 06/16/21 06/16/21 03:15 03:30 03:40 Temperature 99.4 F Pulse Rate 46 L 52 L Pulse Rate [ From Monitor] Respiratory 22 22 Rate Blood Pressure 137/67 141/74 O2 Sat by Pulse 100 100 Oximetry 06/16/21 06/16/21 06/16/21 03:45 04:00 04:15 Temperature Pulse Rate 51 L 46 L 49 L Pulse Rate [ 50 L From Monitor] Respiratory Rate Blood Pressure 144/73 145/68 144/77 O2 Sat by Pulse 100 100 100 Oximetry 06/16/21 06/16/21 06/16/21 04:30 04:45 04:50 Temperature Pulse Rate 48 L 54 L 47 L Pulse Rate [ From Monitor] Respiratory Rate Blood Pressure 151/86 151/73 O2 Sat by Pulse 100 100 Oximetry 06/16/21 06/16/21 06/16/21 05:00 05:15 05:28 Temperature Pulse Rate 47 L 53 L 51 L Pulse Rate [ From Monitor] Respiratory Rate Blood Pressure 148/75 150/72 150/72 O2 Sat by Pulse 100 100 100 Oximetry 06/16/21 06/16/21 06/16/21 05:30 05:46 06:00 Temperature Pulse Rate 54 L 47 L 50 L Pulse Rate [ From Monitor] Respiratory Rate Blood Pressure 150/72 155/74 153/71 O2 Sat by Pulse 100 100 100 Oximetry 06/16/21 06/16/21 06/16/21 06:15 06:30 06:45 Temperature Pulse Rate 61 61 65 Pulse Rate [ From Monitor] Respiratory 22 Rate Blood Pressure 158/71 129/54 132/62 O2 Sat by Pulse 100 100 100 Oximetry 06/16/21 06/16/21 06/16/21 07:00 07:15 07:30 Temperature Pulse Rate 64 54 L 54 L Pulse Rate [ From Monitor] Respiratory 22 Rate Blood Pressure 137/62 126/54 129/57 O2 Sat by Pulse 100 100 100 Oximetry 06/16/21 06/16/21 06/16/21 07:45 08:00 08:15 Temperature 98.2 F Pulse Rate 48 L 59 L 46 L Pulse Rate [ 55 L From Monitor] Respiratory 22 Rate Blood Pressure 134/61 142/69 143/61 O2 Sat by Pulse 100 100 100 Oximetry 06/16/21 06/16/21 06/16/21 08:30 08:40 08:42 Temperature Pulse Rate 66 77 59 L Pulse Rate [ From Monitor] Respiratory 18 Rate Blood Pressure 143/61 124/54 198/73 O2 Sat by Pulse 100 100 Oximetry 06/16/21 06/16/21 08:45 09:00 Temperature Pulse Rate 69 73 Pulse Rate [ From Monitor] Respiratory 15 17 Rate Blood Pressure 162/80 134/61 O2 Sat by Pulse 100 100 Oximetry - General physical appearance obese - Neck other (Neck dressing intact. Crepitus in the neck) - Respiratory normal expansion, other (Crepitus and subcutaneous air left chest wall and left breast) - Abdomen soft Hernia: other (Globular) - Labs 06/16/21 04:32 06/16/21 04:32 Diabetes panel 06/16/21 Range/Units 04:32 Sodium 148 H (137-145) mmol/L Potassium 3.3 L (3.6-5.0) mmol/L Chloride 115.1 H (98-107) mmol/L Carbon Dioxide 21 L (22-30) mmol/L BUN 54 H (7-17) mg/dL Creatinine 1.6 H (0.6-1.2) mg/dL Glucose 367 H (65-100) mg/dL Calcium 7.4 L (8.4-10.2) mg/dL Calcium panel 06/16/21 Range/Units 04:32 Calcium 7.4 L (8.4-10.2) mg/dL Phosphorus 2.50 D (2.5-4.5) mg/dL Pituitary panel 06/16/21 Range/Units 04:32 Sodium 148 H (137-145) mmol/L Potassium 3.3 L (3.6-5.0) mmol/L Chloride 115.1 H (98-107) mmol/L Carbon Dioxide 21 L (22-30) mmol/L BUN 54 H (7-17) mg/dL Creatinine 1.6 H (0.6-1.2) mg/dL Glucose 367 H (65-100) mg/dL Calcium 7.4 L (8.4-10.2) mg/dL Adrenal panel 06/16/21 Range/Units 04:32 Sodium 148 H (137-145) mmol/L Potassium 3.3 L (3.6-5.0) mmol/L Chloride 115.1 H (98-107) mmol/L Carbon Dioxide 21 L (22-30) mmol/L BUN 54 H (7-17) mg/dL Creatinine 1.6 H (0.6-1.2) mg/dL Glucose 367 H (65-100) mg/dL Calcium 7.4 L (8.4-10.2) mg/dL
--- NOTE | 2021-06-16 13:04 | XRay Report ---
CHEST 1 VIEW 06/16/2021 12:34 PM INDICATION / CLINICAL INFORMATION: subcutaneous emphysema. COMPARISON: 06/15/2021 FINDINGS: SUPPORT DEVICES: Stable, satisfactory device positioning. HEART / MEDIASTINUM: Stable. LUNGS / PLEURA: Worsening opacity throughout the left lung. There is a small moderate right pneumotho rax with partial collapse of the upper lobe. ADDITIONAL FINDINGS: Worsening subcutaneous emphysema, most pronounced at right chest wall. IMPRESSION: 1. Small to moderate right pneumothorax. Right chest tube is in stable position. There is worsening c hest wall subcutaneous emphysema. 2. Worsening left lung opacities. IMPORTANT FINDING Time of Communication ([employer]/CDT): 11:58 AM Licensed Practitioner Receiving Report: Nurse Hernandez Signer Name: Nicola Yi MD Signed: 06/16/2021 12:59 PM Workstation Name: [id number]
--- NOTE | 2021-06-16 15:25 | Cat Scan Report ---
CT CHEST WITHOUT CONTRAST INDICATION / CLINICAL INFORMATION: mediastinitis, subcutaneous emphysema. TECHNIQUE: Axial CT images were obtained through the chest without contrast. All CT scans at this [facility] ation are performed using CT dose reduction for ALARA by means of automated exposure control. COMPARISON: Chest radiograph performed earlier in the day. FINDINGS: HEART: Right upper extremity PICC catheter terminates in the right heart. No pericardial effusion. CORONARY ARTERY CALCIFICATION: Mild. THORACIC AORTA: Mild atherosclerotic calcification without acute abnormality. MEDIASTINUM / PRECIOUS: No gas identified. There is a small fluid collection in the anterior mediastinum on series 2 image 76 measuring 2.4 x 1.5 cm which is nonspecific. PLEURA: Moderate right pleural effusion with collapse of the right upper lobe. Small bilateral pleura l effusions. Right thoracostomy tube courses to the pleural space but terminates in the collapsed rig ht upper lobe. LUNGS: Scattered groundglass opacities in both lungs. ADDITIONAL FINDINGS: There is extensive subcutaneous edema throughout the chest, neck, and back. UPPER ABDOMEN: No significant abnormality. SKELETAL SYSTEM: No significant abnormality. IMPRESSION: 1. Moderate right pneumothorax with collapse of the right upper lobe. The right thoracostomy tube ter minates in the collapsed right upper lobe. 2. Bilateral groundglass opacities compatible with infectious/inflammatory etiology. 3. Bilateral small pleural effusions. 4. Extensive subcutaneous emphysema. 5. Small fluid collection in the anterior mediastinum is nonspecific. Recommend short-term follow-up as this could represent a small mediastinal hematoma. Signer Name: Nicola Yi MD Signed: 06/16/2021 3:21 PM Workstation Name: [id number]
--- NOTE | 2021-06-16 16:09 | Progress Note ---
<JORGEKIT JosseCandelaria - Last Filed: 06/16/21 16:04> Assessment and Plan Assessment and plan: This is a 76-year-old female with HTN, Coumadin use, dental caries, PVD s/p stenting to right leg, DM, arthritis, depression, gout and ? Pulmonary hypertension admitted with Jeremiah's angina s/p emergent cric with bleeding, right sided pneumothorax, supratherapeutic INR, hypernatremia, hyperchloremia, severe metabolic acidosis, hyperglycemia and hypocalcemia Neuro: Sedated, h/o depression, arthritis -Sedated propofol, fentanyl gtt -RASS goal -3 to -4 -Resume sedation with fentanyl and propofol -Bilateral wrist restraints in place for safety -Avoid delirium -Reorientation as needed -Maintain sleep-wake cycle Cardiac: S/p cardiac arrest, h/o htn, PVD s/p stenting Right leg -06/14 cardiac arrest with ROSC -S/p vasopressor support with Levophed and Fabian-Synephrine -Blood pressure monitoring per protocol -Pressure monitoring via A-line -Echocardiogram pending Respiratory: Acute hypoxic respiratory failure, right pneumothorax -CCM consulted, appreciate recommendations -S/p emergent cricothyroid with surgery with 8.00 ETT -A.m. vent settings: Assist-control, rate 22, tidal volume 500, PEEP six, FiO2 50% -See RT notes for titration -A.m. ABG and CXR noted -Right chest tube replaced by surgery -CT to wall suction -Changed to larger bore on 06/13 -Postop CXR shows possible hydropneumothorax on right side -06/13 bronchoscopy showed possible blood clot in left lung which may be acting as mucous plug however it was left in place due to possible bleeding inside lung if removed. -CXR post cardiac arrest shows clearance of mucous plug -06/16 CT chest shows moderate right pneumothorax with collapse of right upper lobe, right thoracostomy tube terminates at the collapsed right upper lobe, bilateral bronchus opacities compatible with infectious/inflammatory etiology, bilateral small pleural effusion, extensive subcutaneous air, small fluid co llection in the anterior mediastinum is nonspecific -VAP bundle -SPO2 monitoring GI: Protein calorie malnutrition -24 hours negative 1277mL -PPI -Hold BR in setting of no enteral access -TPN : Acute kidney injury possibly secondary to vasomotor nephropathy, metabolic acidosis, hypokalemia, hypernatremia, hyperchloremia -Strict intake and output -Renally dose medications -Avoid nephrotoxic medications -Daily weights -Consider nephrology consult if worsens -S/p 6 L LR bolus -Repeat 1 L LR bolus today -FeNa 0.067 -Replete potassium ID: 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 dental caries -CT neck with contrast showed a significant right floor of mild swelling with extension into the submandibular and submental spaces, significant thickening and inflammation involving the right pharyngeal wall, with the parapharyngeal and retropharyngeal spaces at the level of the thyroid cartilage, epiglottis significantly swollen and so are the aryepiglottic folds resulting in sig nificant airway narrowing at this level, no lymphadenopathy, symmetric submandibular and parathyroid glands, S few scattered caries but no periapical lucencies, nonspecific calcification along the right lateral oropharynx, no definite stone seen within the territory of the submandibular gland ducts, no suspicious rashes lesion -Infectious disease and general surgery consulted, appreciate recommendations -s/p cricothyroidectomy -Will follow surgery to direction and treatment of injury -Per surgery may have mucosal injury -Intra-Op findings include post pharyngeal swelling and bruising -Solu-Medrol 125 every 8 -Antibiotic therapy Zosyn -COVID-19 PCR negative -f/u blood culture -Monitor WBC and temperature curve -s/p 5L normal saline bolus in ED, 6 L LR bolus in ICU - repeat LR bolus today Heme: Coagulopathy, supratherapeutic INR, acute blood loss anemiq, possible component of hemorrhagic shock -Patient is on Coumadin at home -S/p 5 FFP, 7 PRBC, vitamin K x3 -Trend CBC -Presented with H/H of 10.3/34.6 and decreased to 6.7/22.4 -INR 8.18-> 4.55-> 2.1-> 1.23-> 1.16-> 1.31 -Monitor INR -Transfuse hemoglobin less than 7 -Monitor for signs of bleeding -SCDs to BLE while in bed -Avoid chemical anticoagulation in setting of recent blood loss anemia Endo: Hyperglycemia, h/o DM, gout -S/p Lantus 25 units x 1 -Lantus subcu, titrate as needed -Avoid hypoglycemia -SSI -Accu-Cheks q. 6hr The high probability of a clinically significant, sudden or life threatening deterioration of the [multi] system(s) required my full and direct attention, intervention and personal management. The aggregate critical care time was [60] minutes. This time is in addition to time spent performing reported procedures but includes the following: [x] Data Review and interpretation [x] Patient assessment and monitoring of vital signs [x] Documentation [x] Medication orders and management Disposition Plan: ICU Total Time Spent with Patient (Minutes): 60 History Interval history: This is a 76-year-old female with HTN, Coumadin use , dental caries, PVD s/p stenting right leg, DM, arthritis, depression, gout, and ? Pulmonary hypertension who presented to emergency department on 06/11 with complaints of pain to mandible area and throat and swelling. Work-up in the emergency department included CT scan of the head and neck which showed findings consistent with Jermeiah's angina and anesthesia was called for intubation. Anesthesia intubation attempts were unsuccessful and surgery was consulted for cricothyroidotomy which was unsuccessful in the emergency department and patient was taken to the OR for tracheostomy. Intubation procedure was complicated by development of pneumothorax and excessive bleeding. Patient given multiple FFP's and vitamin K several times who attempts to decrease INR. Lab work showed leukocytosis, supratherapeutic INR, hypernatremia, hyperchloremia, severe metabolic acidosis, hyperglycemia, hypocalcemia. Patient was admitted to the hospitalist service with consults to [facility], general surgery, infectious disease. Hospital course to date: 06/12: Patient received additional 2 units FFP and 1 unit PRBC and vitamin K today. Overnight critical care placed a femoral CVL. Patient sedated on fentanyl, propofol and Versed. Currently on Fabian-Synephrine and Levophed for blood pressure maintenance. Remains amatory support. Infectious disease consulted. Started on sliding scale insulin and recultured. COVID-19 PCR pend ing. Surgery at bedside to place chest tube. 06/13: Patient was taken back to the OR today for exchange cricothyroid to possible tracheostomy. Patient returned with ETT. Chest tube was changed to l arger size in the OR. Patient was hypotensive, tachycardic, hypoxic in the OR and received hespan, albumin and an A-line. Upon arrival patient was increased to max dose Levophed for hypotension which has resolved. Titrating vasopressors as tolerated. Remains on sedation with 3 agents. Apparently patient was not ventilating her left lung Intra-Op. Noted to have subcu hematoma and trauma to postpharyngeal area. Questionable decrease cardiac wall motion noted in OR-> will order echocardiogram to further investigate. Patient received additional PRBC today. DIC panel resulted as normal. Patient BUN/creatinine did increase as well as noted to have lactic acidosis. May need IV bolus in addition to pressor use. Likely bronc with Pulmicort today as repeat CXR showed right possible pneumo hydrothorax 06/14: Antibiotics changed to Zosyn per ID, surgical packing removed from neck and makeshift Faith drain placed by surgery and old chronic thyroidectomy site. CXR was completed and RN heard gurgling and blood was noted on dressing. ST elevation noted on bedside monitor and patient was hypoxic. FiO2 increased to 100%. However shortly after patient lost her pulse and ACLS was initiated. Patient received 3 rounds of epinephrine and ROSC was achieved. Stat portable CXR showed resolution of lower lobe collapse on the left and stable right-sided chest tube with hemothorax. CCM updated family. Patient H/H noted to be 7.2/23.2 and did RN to transfuse prepared PRBC which [facility]. Bedside echo completed. 06/15: Off sedation, intermittently follows commands, remains on the prednisone. Surgery will reassess airway on Thursday to see if any further support is requir ed. Urine studies indicate prerenal, given IV bolus and started on Clinimix today. 06/16: Patient restarted on fentanyl drip due to hypertension. Given more LR due to CR improvement post LR yesterday. Patient started on Lantus subcu after given one-time dose of Lantus. PICC placed today. Patient had a CT chest today which showed no mediasinusitis but extensive subcutaneous air. Hospitalist Physical - Constitutional Vitals: Temp Pulse Resp BP Pulse Ox 98.2 F 82 17 134/61 100 06/16/21 08:00 06/16/21 14:42 06/16/21 09:00 06/16/21 09:00 06/16/21 14:42 General appearance: Present: no acute distress, obese - EENT Eyes: Present: PERRL, EOM intact ENT: poor dentition - Neck Neck: Present: normal ROM - Respiratory Respiratory effort: normal Respiratory: bilateral: diminished, other (Extensive subcutaneous air) - Cardiovascular Rhythm: regular Heart Sounds: Present: S1 & S2. Absent: systolic murmur, diastolic murmur - Extremities Extremities: no ischemia, pulses intact, pulses symmetrical, No edema, normal temperature, normal color Peripheral Pulses: within normal limits - Abdominal General gastrointestinal: soft, non-tender, non-distended, normal bowel sounds - Integumentary Integumentary: Present: warm, dry - Psychiatric Psychiatric: other (Sedated) - Neurologic Neurologic: other (Sedated, follows commands once off sedation, pupils equal and reactive) HEART Score - HEART Score Troponin: Troponin T < 0.010 ng/mL (0.00-0.029) 06/11/21 23:21 Results - Labs CBC & Chem 7: 06/16/21 04:32 06/16/21 04:32 Labs: Laboratory Last Values WBC 8.1 K/mm3 (4.5-11.0) 06/16/21 04:32 RBC 3.16 M/mm3 (3.65-5.03) L 06/16/21 04:32 Hgb 8.2 gm/dl (10.1-14.3) L 06/16/21 04:32 Hct 25.4 % (30.3-42.9) L 06/16/21 04:32 MCV 81 fl (79-97) 06/16/21 04:32 MCH 26 pg (28-32) L 06/16/21 04:32 MCHC 32 % (30-34) 06/16/21 04:32 RDW 21.2 % (13.2-15.2) H 06/16/21 04:32 Plt Count 118 K/mm3 (140-440) L 06/16/21 04:32 Lymph % (Auto) 9.2 % (13.4-35.0) L 06/11/21 19:29 [place] % (Auto) 1.4 % (0.0-7.3) 06/11/21 19:29 Eos % (Auto) 0.2 % (0.0-4.3) 06/11/21 19:29 Baso % (Auto) 0.2 % (0.0-1.8) 06/11/21 19:29 Lymph # (Auto) 1.4 K/mm3 (1.2-5.4) 06/11/21 19:29 [place] # (Auto) 0.2 K/mm3 (0.0-0.8) 06/11/21 19: Eos # (Auto) 0.0 K/mm3 (0.0-0.4) 06/11/21 19:29 Baso # (Auto) 0.0 K/mm3 (0.0-0.1) 06/11/21 19:29 Add Manual Diff Complete 06/13/21 Unknown Total Counted 100 06/13/21 Unknown Seg Neutrophils % 89.0 % (40.0-70.0) H 06/11/21 19:29 Seg Neuts % (Manual) 88.0 % (40.0-70.0) H 06/13/21 Unknown Band Neutrophils % 2.0 % 06/13/21 Unknown Lymphocytes % (Manual) 4.0 % (13.4-35.0) L 06/13/21 Unknown Reactive Lymphs % (Man) 0 % 06/13/21 Unknown Monocytes % (Manual) 6.0 % (0.0-7.3) 06/13/21 Unknown Eosinophils % (Manual) 0 % (0.0-4.3) 06/13/21 Unknown Basophils % (Manual) 0 % (0.0-1.8) 06/13/21 Unknown Metamyelocytes % 0 % 06/13/21 Unknown Myelocytes % 0 % 06/13/21 Unknown Promyelocytes % 0 % 06/13/21 Unknown Blast Cells % 0 % 06/13/21 Unknown Nucleated RBC % Not Reportable 06/13/21 Unknown Seg Neutrophils # 14.0 K/mm3 (1.8-7.7) H 06/11/21 19:29 Seg Neutrophils # Man 19.8 K/mm3 (1.8-7.7) H 06/13/21 Unknown Band Neutrophils # 0.5 K/mm3 06/13/21 Unknown Lymphocytes # (Manual) 0.9 K/mm3 (1.2-5.4) L 06/13/21 Unknown Abs React Lymphs (Man) 0.0 K/mm3 06/13/21 Unknown Monocytes # (Manual) 1.4 K/mm3 (0.0-0.8) H 06/13/21 Unknown Eosinophils # (Manual) 0.0 K/mm3 (0.0-0.4) 06/13/21 Unknown Basophils # (Manual) 0.0 K/mm3 (0.0-0.1) 06/13/21 Unknown Metamyelocytes # 0.0 K/mm3 06/13/21 Unknown Myelocytes # 0.0 K/mm3 06/13/21 Unknown Promyelocytes # 0.0 K/mm3 06/13/21 Unknown Blast Cells # 0.0 K/mm3 06/13/21 Unknown WBC Morphology Not Reportable 06/13/21 Unknown Hypersegmented Neuts Not Reportable 06/13/21 Unknown Hyposegmented Neuts Not Reportable 06/13/21 Unknown Hypogranular Neuts Not Reportable 06/13/21 Unknown Smudge Cells Not Reportable 06/13/21 Unknown Toxic Granulation 2+ 06/13/21 Unknown Toxic Vacuolation Not Reportable 06/13/21 Unknown Dohle Bodies Not Reportable 06/13/21 Unknown Pelger-Huet Anomaly Not Reportable 06/13/21 Unknown Dennis Rods Not Reportable 06/13/21 Unknown Platelet Estimate Consistent w auto 06/13/21 Unknown Clumped Platelets Not Reportable 06/13/21 Unknown Plt Clumps, EDTA Not Reportable 06/13/21 Unknown Large Platelets Not Reportable 06/13/21 Unknown Giant Platelets Not Reportable 06/13/21 Unknown Platelet Satelliting Not Reportable 06/13/21 Unknown Plt Morphology Comment Not Reportable 06/13/21 Unknown RBC Morphology Not Reportable 06/13/21 Unknown Dimorphic RBCs Not Reportable 06/13/21 Unknown Polychromasia Few 06/13/21 Unknown Hypochromasia 2+ 06/13/21 Unknown Poikilocytosis Not Reportable 06/13/21 Unknown Anisocytosis 1+ 06/13/21 Unknown Microcytosis Not Reportable 06/13/21 Unknown Macrocytosis Not Reportable 06/13/21 Unknown Spherocytes Not Reportable 06/13/21 Unknown Pappenheimer Bodies Not Reportable 06/13/21 Unknown Sickle Cells Not Reportable 06/13/21 Unknown Target Cells Not Reportable 06/13/21 Unknown Tear Drop Cells Not Reportable 06/13/21 Unknown Ovalocytes Not Reportable 06/13/21 Unknown Stomatocytes Few 06/12/21 01:45 Helmet Cells Not Reportable 06/13/21 Unknown [place] Bodies Not Reportable 06/13/21 Unknown Taswell Rings Not Reportable 06/13/21 Unknown [place] Cells Not Reportable 06/13/21 Unknown Bite Cells Not Reportable 06/13/21 Unknown Crenated Cell Not Reportable 06/13/21 Unknown Elliptocytes Not Reportable 06/13/21 Unknown Acanthocytes (Spur) Not Reportable 06/13/21 Unknown Rouleaux Not Reportable 06/13/21 Unknown Hemoglobin C Crystals Not Reportable 06/13/21 Unknown Schistocytes Not Reportable 06/13/21 Unknown Malaria parasites Not Reportable 06/13/21 Unknown Edin Bodies Not Reportable 06/13/21 Unknown Hem Pathologist Commnt No 06/13/21 Unknown PT 17.6 Sec. (12.2-14.9) H 06/13/21 Unknown INR 1.31 (0.87-1.13) H 06/13/21 Unknown APTT 26.4 Sec. (24.2-36.6) 06/13/21 Unknown Fibrinogen 546 mg/dl (211-480) H 06/13/21 Unknown D-Dimer 1244.63 ng/mlDDU (0-234) H 06/13/21 Unknown ABG pH 7.475 pH Units (7.350-7.450) H 06/16/21 05:30 POC ABG pCO2 25.6 mmHg (32.0-48.0) L 06/13/21 04:31 ABG pCO2 31.2 mm Hg 06/16/21 05:30 POC ABG pO2 138.8 mmHg (83-108) H 06/13/21 04:31 ABG pO2 171.8 mm Hg (80.0-90.0) H 06/16/21 05:30 POC ABG HCO3 21.4 06/13/21 04:31 ABG HCO3 22.5 mmol/L (20.0-26.0) 06/16/21 05:30 ABG O2 Saturation 99.1 % (95.0-99.0) H 06/16/21 05:30 ABG O2 Content 16.4 (0.0-44) 06/16/21 05:30 POC ABG Base Excess -0.7 06/13/21 04:31 ABG Base Excess -0.4 mmol/L (-2.0-3.0) 06/16/21 05:30 ABG Hemoglobin 11.7 gm/dl (12.0-16.0) L 06/16/21 05:30 ABG Oxyhemoglobin 98.1 (94-98) H 06/13/21 04:31 ABG Carboxyhemoglobin 0.9 % (0.0-5.0) 06/16/21 05:30 ABG Methemoglobin 0.6 % (0.0-1.5) 06/16/21 05:30 Oxyhemoglobin 97.6 % (95.0-99.0) 06/16/21 05:30 Carboxyhemoglobin 0.8 (0.5-1.5) 06/13/21 04:31 FiO2 50 % 06/16/21 05:30 FiO2 % 40.0 06/13/21 04:31 Sodium 148 mmol/L (137-145) H 06/16/21 04:32 Potassium 3.3 mmol/L (3.6-5.0) L 06/16/21 04:32 Chloride 115.1 mmol/L (98-107) H 06/16/21 04:32 Carbon Dioxide 21 mmol/L (22-30) L 06/16/21 04:32 Anion Gap 15 mmol/L 06/16/21 04:32 BUN 54 mg/dL (7-17) H 06/16/21 04:32 Creatinine 1.6 mg/dL (0.6-1.2) H 06/16/21 04:32 Estimated GFR 38 ml/min 06/16/21 04:32 BUN/Creatinine Ratio 34 % 06/16/21 04:32 Glucose 367 mg/dL (65-100) H 06/16/21 04:32 POC Glucose 309 mg/dL (70-105) H 06/16/21 11:46 Lactic Acid 5.30 mmol/L (0.7-2.0) H* 06/13/21 15:45 Calcium 7.4 mg/dL (8.4-10.2) L 06/16/21 04:32 Phosphorus 2.50 mg/dL (2.5-4.5) D 06/16/21 04:32 Magnesium 2.20 mg/dL (1.7-2.3) 06/16/21 04:32 Total Bilirubin 0.40 mg/dL (0.1-1.2) 06/15/21 03:56 AST 64 units/L (5-40) H 06/15/21 03:56 ALT 106 units/L (7-56) H 06/15/21 03:56 Alkaline Phosphatase 55 units/L (35-129) 06/15/21 03:56 Troponin T < 0.010 ng/mL (0.00-0.029) 06/11/21 23:21 C-Reactive Protein 3.30 mg/dL (0.00-1.30) H 06/16/21 04:32 Total Protein 5.1 g/dL (6.3-8.2) L 06/15/21 03:56 Albumin 2.9 g/dL (3.9-5) L 06/15/21 03:56 Albumin/Globulin Ratio 1.3 % 06/15/21 03:56 Triglycerides 189 mg/dL (2-149) H 06/14/21 06:15 Urine Color Yellow (Yellow) 06/12/21 17:00 Urine Turbidity Clear (Clear) 06/12/21 17:00 Urine pH 5.0 (5.0-7.0) 06/12/21 17:00 Ur Specific [place] 1.035 (1.003-1.030) H 06/12/21 17:00 Urine Protein 30 mg/dl mg/dL (Negative) 06/12/21 17:00 Urine Glucose (UA) 50 mg/dL (Negative) 06/12/21 17:00 Urine Ketones Tr mg/dL (Negative) 06/12/21 17:00 Urine Blood Neg (Negative) 06/12/21 17:00 Urine Nitrite Neg (Negative) 06/12/21 17:00 Urine Bilirubin Neg (Negative) 06/12/21 17:00 Urine Urobilinogen < 2.0 mg/dL (<2.0) 06/12/21 17:00 Ur Leukocyte Esterase Neg (Negative) 06/12/21 17:00 Urine WBC (Auto) < 1.0 /HPF (0.0-6.0) 06/12/21 17:00 Urine RBC (Auto) < 1.0 /HPF (0.0-6.0) 06/12/21 17:00 Urine Creatinine 81.1 mg/dL (0.1-20.0) H 06/15/21 10:40 Urine Sodium 42 mmol/L 06/15/21 10:40 Coronavirus (PCR) Negative (Negative) 06/12/21 09:50 Blood Type O POSITIVE 06/11/21 19:20 Antibody Screen Negative 06/11/21 19:20 Crossmatch See Detail 06/11/21 19:20 Microbiology: Microbiology 06/12/21 09:40 Peripheral/Venous Blood Culture - Preliminary NO GROWTH AFTER 4 DAYS 06/12/21 09:40 Peripheral/Venous Blood Culture - Preliminary NO GROWTH AFTER 4 DAYS Lujan/IV: Voiding Method Indwelling Catheter Active Medications - Current Medications Current Medications: Generic Name Dose Route Start Last Admin Trade Name Freq PRN Reason Stop Dose Admin Famotidine 10 mg 06/15/21 22:00 06/16/21 10:40 Famotidine 20 Mg/2 Ml Inj IV 10 mg BID JOLENE Administration Fentanyl 50 mcg 06/11/21 22:55 06/15/21 16:50 Fentanyl 100 Mcg/2 Ml Inj IV 50 mcg Q10MIN PRN Administration ANALGESIA Hydralazine HCl 10 mg 06/16/21 08:00 06/16/21 08:42 Hydralazine 20 Mg/1 Ml Inj IV 10 mg Q4H PRN Administration Hypertension Hydromorphone HCl 0.5 mg 06/11/21 20:42 Hydromorphone 1 Mg/1 Ml Inj IV Q3H PRN Pain , Severe (7-10) Midazolam DRIP Premix 100 mg in 100 mls @ 1 mls/hr 06/11/21 23:00 06/15/21 17:34 Midazolam/Ns 100 Mg/100 Ml IV 0 mg/hr TITR JOLENE 0 mls/hr Titration Protocol 1 MG/HR Fentanyl Citrate 2,000 mcg in 100 mls @ 5.466 mls/hr 06/11/21 23:00 06/16/21 13:29 Fentanyl Drip Premix IV 3 mcg/kg/hr TITR JOLENE 16.397 mls/hr Administration Protocol 1 MCG/KG/HR Phenylephrine HCl 100 mg/ 100 mls @ 3 mls/hr 06/11/21 23:45 06/14/21 07:00 Sodium Chloride IV 0 mcg/min TITR JOLENE 0 mls/hr Titration Protocol 50 MCG/MIN NORepinephrine/NS 8 MG-250 ML 8 mg in 250 mls @ 3.75 mls/hr 06/12/21 02:00 06/14/21 05:56 Norepinephrine/Ns 8 Mg-250 Ml (Double Conc) IV 0 mcg/min TITRATE JOLENE 0 mls/hr Titration Protocol 2 MCG/MIN Propofol 1,000 mg in 100 mls @ 3.279 mls/hr 06/12/21 03:00 06/16/21 10:32 Diprivan 10 Mg/Ml IV 5 mcg/kg/min TITR JOLENE 3.279 mls/hr Administration Protocol 5 MCG/KG/MIN Amino Acids 2,000 mls @ 84 mls/hr 06/15/21 20:00 06/15/21 23:07 Clinimix 4.25%-10% Solution IV 06/16/21 19:59 84 mls/hr ONCE JOLENE Administration Piperacillin Sod/Tazobactam Sod 3.375 gm in 50 mls @ 100 mls/hr 06/15/21 12:00 06/16/21 10:33 Zosyn/Ns 3.375gm/50ml IV 100 mls/hr Q6HR JOLENE Administration Amino Acids/Electrolytes/Dextrose 1,999.92 mls @ 83.33 mls/hr 06/16/21 20:00 Tpn Adult IV 06/17/21 19:59 DAILY@1999 [facility] Protocol Insulin Glargine 10 units 06/17/21 22:00 Insulin Glargine 100 Units/Ml SUB-Q QHS [facility] Insulin Human Lispro 0 unit 06/12/21 12:00 06/16/21 06:07 Insulin Lispro 100 Unit/Ml SUB-Q 10 unit Q6HR [facility] Administration Protocol Methylprednisolone Sodium Succinate 125 mg 06/11/21 22:00 06/15/21 21:06 Methylprednisolone Sod Succinate 125 Mg/2 Ml Inj IV 125 mg Q8HR [facility] Administration Metoclopramide HCl 10 mg 06/11/21 20:42 Metoclopramide 10 Mg/2 Ml Inj IV Q6H PRN Nausea And Vomiting Ondansetron HCl 4 mg 06/11/21 20:42 Ondansetron 4 Mg/2 Ml Inj IV Q3H PRN Nausea And Vomiting Sodium Chloride 10 ml 06/11/21 22:00 06/15/21 21:06 Sodium Chloride 0.9% 10 Ml Flush Syringe IV 10 ml BID JOLENE Administration Sodium Chloride 10 ml 06/11/21 20:42 Sodium Chloride 0.9% 10 Ml Flush Syringe IV PRN PRN LINE FLUSH Nutrition/Malnutrition Assess - Dietary Evaluation Nutrition/Malnutrition Findings: Nutrition Notes Start: 06/16/21 12:10 Freq: Status: Active Protocol: Document 06/16/21 12:10 [facility] (Rec: 06/16/21 12:35 [facility] [id number]) Nutrition Notes Need for Assessment generated from: MD Order Initial or Follow up Assessment Current Diagnosis Diabetes,Sepsis,Hypertension, Respiratory Failure Other Pertinent Diagnosis Jeremiah's angina, (R) pneumothorax, Coagulopathy, s/ p cardiac arrest, gout Current Diet No diet ordered Labs/Tests Na 148 K 3.3 Cl 115.1 CO2 - 21 BUN 54 Cr 1.6 BG 367 Ca 7.4 (adjusted 8.3) Pertinent Medications Clinimix ordered yesterday (4. 25% amino acids/10% dextrose at 84ml/hr), Lantus, Humalog, Solumedrol, Propofol at 3. 279ml/hr (provides 87 kcal) Height 5 ft 8 in Weight 109.316 kg [place] Body Weight (kg) 63.63 BMI 36.6 Weight Status Obese Subjective/Other Information RD consulted for TPN. Pt on vent support; difficult intubation requiring cricothyrotomy. Endotracheal tube was sutured in. MD does not want to insert OGT/NGT at this time given current situation with the neck. Pt will likely need a trach and PEG. PICC line ordered. Percent of energy/protein needs met: 52% energy 68% pro (from Clinimix) Burn Absent Trauma Absent Minimum of two criteria No #1 Nutrition Diagnosis Inadequate oral intake Etiology [facility] ventilation As Evidenced by Signs and Symptoms pt NPO Is patient on ventilator? Yes Is Patient Ambulatory and/or Out of Bed No REE-([facility]-confined to bed) 2003.884 Calculation Used for Recommendations 65-70% energy needs Additional Notes Energy needs: 1280-1379kcal/ day Pro needs 2g/kg IBW: 127g/day Fluid needs 1ml/kcal Nutrition Intervention Nutrition Support: Start PN at 83.33ml/hr: MVI, thiamine, 5% dextrose, 4.3% amino acids, 0mEq Na, 80mEq K, 0mEq Mg, 10mEq Ca, 20mmol Phos, 0% chloride/100% acetate . Osmolality: 765. Kcal 680 Protein (gm) 85 Carbohydrates (gm) 100 Fat (gm) 0 Fluid (mL) 2,000 Fiber (gm) 0 Goal #1 PN to meet nutrient needs as best possible Anticipated Discharge Needs: Unable to identify at this time Follow-Up By: 06/17/21 Additional Comments Labs in am: BMP, Mg, Phos F/U: vent status, trach/PEG placement, propofol, PICC line placement <EDILBERTO LUCIANO - Last Filed: 06/17/21 11:20> Assessment and Plan Assessment and plan: I saw and evaluated the patient. Discussed with the nurse practitioner and agree with their findings and plan as documented in this note. Hospitalist Physical - Constitutional Vitals: Temp Pulse Resp BP Pulse Ox 97.7 F 51 L 16 132/58 95 06/17/21 08:00 06/17/21 10:45 06/17/21 10:45 06/17/21 10:45 06/17/21 10:45 HEART Score - HEART Score Troponin: Troponin T < 0.010 ng/mL (0.00-0.029) 06/11/21 23:21 Results - Labs CBC & Chem 7: 06/17/21 05:30 06/17/21 05:30 Labs: Laboratory Last Values WBC 7.6 K/mm3 (4.5-11.0) 06/17/21 05:30 RBC 3.17 M/mm3 (3.65-5.03) L 06/17/21 05:30 Hgb 8.2 gm/dl (10.1-14.3) L 06/17/21 05:30 Hct 25.5 % (30.3-42.9) L 06/17/21 05:30 MCV 80 fl (79-97) 06/17/21 05:30 MCH 26 pg (28-32) L 06/17/21 05:30 MCHC 32 % (30-34) 06/17/21 05:30 RDW 21.2 % (13.2-15.2) H 06/17/21 05:30 Plt Count 128 K/mm3 (140-440) L 06/17/21 05:30 Lymph % (Auto) 9.2 % (13.4-35.0) L 06/11/21 19:29 [place] % (Auto) 1.4 % (0.0-7.3) 06/11/21 19: Eos % (Auto) 0.2 % (0.0-4.3) 06/11/21 19: Baso % (Auto) 0.2 % (0.0-1.8) 06/11/21 19: Lymph # (Auto) 1.4 K/mm3 (1.2-5.4) 06/11/21 19: [place] # (Auto) 0.2 K/mm3 (0.0-0.8) 06/11/21 19: Eos # (Auto) 0.0 K/mm3 (0.0-0.4) 06/11/21: Baso # (Auto) 0.0 K/mm3 (0.0-0.1) 06/11/21 19: Add Manual Diff Complete 06/13/21 Unknown Total Counted 100 06/13/21 Unknown Seg Neutrophils % 89.0 % (40.0-70.0) H 06/11/21 19: Seg Neuts % (Manual) 88.0 % (40.0-70.0) H 06/13/21 Unknown Band Neutrophils % 2.0 % 06/13/21 Unknown Lymphocytes % (Manual) 4.0 % (13.4-35.0) L 06/13/21 Unknown Reactive Lymphs % (Man) 0 % 06/13/21 Unknown Monocytes % (Manual) 6.0 % (0.0-7.3) 06/13/21 Unknown Eosinophils % (Manual) 0 % (0.0-4.3) 06/13/21 Unknown Basophils % (Manual) 0 % (0.0-1.8) 06/13/21 Unknown Metamyelocytes % 0 % 06/13/21 Unknown Myelocytes % 0 % 06/13/21 Unknown Promyelocytes % 0 % 06/13/21 Unknown Blast Cells % 0 % 06/13/21 Unknown Nucleated RBC % Not Reportable 06/13/21 Unknown Seg Neutrophils # 14.0 K/mm3 (1.8-7.7) H 06/11/21 19: Seg Neutrophils # Man 19.8 K/mm3 (1.8-7.7) H 06/13/21 Unknown Band Neutrophils # 0.5 K/mm3 06/13/21 Unknown Lymphocytes # (Manual) 0.9 K/mm3 (1.2-5.4) L 06/13/21 Unknown Abs React Lymphs (Man) 0.0 K/mm3 06/13/21 Unknown Monocytes # (Manual) 1.4 K/mm3 (0.0-0.8) H 06/13/21 Unknown Eosinophils # (Manual) 0.0 K/mm3 (0.0-0.4) 06/13/21 Unknown Basophils # (Manual) 0.0 K/mm3 (0.0-0.1) 06/13/21 Unknown Metamyelocytes # 0.0 K/mm3 06/13/21 Unknown Myelocytes # 0.0 K/mm3 06/13/21 Unknown Promyelocytes # 0.0 K/mm3 06/13/21 Unknown Blast Cells # 0.0 K/mm3 06/13/21 Unknown WBC Morphology Not Reportable 06/13/21 Unknown Hypersegmented Neuts Not Reportable 06/13/21 Unknown Hyposegmented Neuts Not Reportable 06/13/21 Unknown Hypogranular Neuts Not Reportable 06/13/21 Unknown Smudge Cells Not Reportable 06/13/21 Unknown Toxic Granulation 2+ 06/13/21 Unknown Toxic Vacuolation Not Reportable 06/13/21 Unknown Dohle Bodies Not Reportable 06/13/21 Unknown Pelger-Huet Anomaly Not Reportable 06/13/21 Unknown Dennis Rods Not Reportable 06/13/21 Unknown Platelet Estimate Consistent w auto 06/13/21 Unknown Clumped Platelets Not Reportable 06/13/21 Unknown Plt Clumps, EDTA Not Reportable 06/13/21 Unknown Large Platelets Not Reportable 06/13/21 Unknown Giant Platelets Not Reportable 06/13/21 Unknown Platelet Satelliting Not Reportable 06/13/21 Unknown Plt Morphology Comment Not Reportable 06/13/21 Unknown RBC Morphology Not Reportable 06/13/21 Unknown Dimorphic RBCs Not Reportable 06/13/21 Unknown Polychromasia Few 06/13/21 Unknown Hypochromasia 2+ 06/13/21 Unknown Poikilocytosis Not Reportable 06/13/21 Unknown Anisocytosis 1+ 06/13/21 Unknown Microcytosis Not Reportable 06/13/21 Unknown Macrocytosis Not Reportable 06/13/21 Unknown Spherocytes Not Reportable 06/13/21 Unknown Pappenheimer Bodies Not Reportable 06/13/21 Unknown Sickle Cells Not Reportable 06/13/21 Unknown Target Cells Not Reportable 06/13/21 Unknown Tear Drop Cells Not Reportable 06/13/21 Unknown Ovalocytes Not Reportable 06/13/21 Unknown Stomatocytes Few 06/12/21 01:45 Helmet Cells Not Reportable 06/13/21 Unknown [place]vona Bodies Not Reportable 06/13/21 Unknown Taswell Rings Not Reportable 06/13/21 Unknown Nelsy Cells Not Reportable 06/13/21 Unknown Bite Cells Not Reportable 06/13/21 Unknown Crenated Cell Not Reportable 06/13/21 Unknown Elliptocytes Not Reportable 06/13/21 Unknown Acanthocytes (Spur) Not Reportable 06/13/21 Unknown Rouleaux Not Reportable 06/13/21 Unknown Hemoglobin C Crystals Not Reportable 06/13/21 Unknown Schistocytes Not Reportable 06/13/21 Unknown Malaria parasites Not Reportable 06/13/21 Unknown Edin Bodies Not Reportable 06/13/21 Unknown Hem Pathologist Commnt No 06/13/21 Unknown PT 17.6 Sec. (12.2-14.9) H 06/13/21 Unknown INR 1.31 (0.87-1.13) H 06/13/21 Unknown APTT 26.4 Sec. (24.2-36.6) 06/13/21 Unknown Fibrinogen 546 mg/dl (211-480) H 06/13/21 Unknown D-Dimer 1244.63 ng/mlDDU (0-234) H 06/13/21 Unknown ABG pH 7.479 pH Units (7.350-7.450) H 06/17/21 04:50 POC ABG pCO2 25.6 mmHg (32.0-48.0) L 06/13/21 04:31 ABG pCO2 31.1 mm Hg 06/17/21 04:50 POC ABG pO2 138.8 mmHg (83-108) H 06/13/21 04:31 ABG pO2 143.1 mm Hg (80.0-90.0) H 06/17/21 04:50 POC ABG HCO3 21.4 06/13/21 04:31 ABG HCO3 22.6 mmol/L (20.0-26.0) 06/17/21 04:50 ABG O2 Saturation 98.9 % (95.0-99.0) 06/17/21 04:50 ABG O2 Content 14.0 (0.0-44) 06/17/21 04:50 POC ABG Base Excess -0.7 06/13/21 04:31 ABG Base Excess -0.4 mmol/L (-2.0-3.0) 06/17/21 04:50 ABG Hemoglobin 10.0 gm/dl (12.0-16.0) L 06/17/21 04:50 ABG Oxyhemoglobin 98.1 (94-98) H 06/13/21 04:31 ABG Carboxyhemoglobin 1.1 % (0.0-5.0) 06/17/21 04:50 ABG Methemoglobin 0.5 % (0.0-1.5) 06/17/21 04:50 Oxyhemoglobin 97.2 % (95.0-99.0) 06/17/21 04:50 Carboxyhemoglobin 0.8 (0.5-1.5) 06/13/21 04:31 FiO2 40 % 06/17/21 04:50 FiO2 % 40.0 06/13/21 04:31 Sodium 148 mmol/L (137-145) H 06/17/21 05:30 Potassium 3.7 mmol/L (3.6-5.0) 06/17/21 05:30 Chloride 113.7 mmol/L (98-107) H 06/17/21 05:30 Carbon Dioxide 20 mmol/L (22-30) L 06/17/21 05:30 Anion Gap 18 mmol/L 06/17/21 05:30 BUN 57 mg/dL (7-17) H 06/17/21 05:30 Creatinine 1.4 mg/dL (0.6-1.2) H 06/17/21 05:30 Estimated GFR 44 ml/min 06/17/21 05:30 BUN/Creatinine Ratio 41 % 06/17/21 05:30 Glucose 351 mg/dL (65-100) H 06/17/21 05:30 POC Glucose 324 mg/dL (70-105) H 06/17/21 05:18 Lactic Acid 5.30 mmol/L (0.7-2.0) H* 06/13/21 15:45 Calcium 8.0 mg/dL (8.4-10.2) L 06/17/21 05:30 Phosphorus 2.30 mg/dL (2.5-4.5) L 06/17/21 05:30 Magnesium 2.30 mg/dL (1.7-2.3) 06/17/21 05:30 Total Bilirubin 0.40 mg/dL (0.1-1.2) 06/15/21 03:56 AST 64 units/L (5-40) H 06/15/21 03:56 ALT 106 units/L (7-56) H 06/15/21 03:56 Alkaline Phosphatase 55 units/L (35-129) 06/15/21 03:56 Troponin T < 0.010 ng/mL (0.00-0.029) 06/11/21 23:21 C-Reactive Protein 3.30 mg/dL (0.00-1.30) H 06/16/21 04:32 Total Protein 5.1 g/dL (6.3-8.2) L 06/15/21 03:56 Albumin 2.9 g/dL (3.9-5) L 06/15/21 03:56 Albumin/Globulin Ratio 1.3 % 06/15/21 03:56 Triglycerides 189 mg/dL (2-149) H 06/14/21 06:15 Urine Color Yellow (Yellow) 06/12/21 17:00 Urine Turbidity Clear (Clear) 06/12/21 17:00 Urine pH 5.0 (5.0-7.0) 06/12/21 17:00 Ur Specific [place] 1.035 (1.003-1.030) H 06/12/21 17:00 Urine Protein 30 mg/dl mg/dL (Negative) 06/12/21 17:00 Urine Glucose (UA) 50 mg/dL (Negative) 06/12/21 17:00 Urine Ketones Tr mg/dL (Negative) 06/12/21 17:00 Urine Blood Neg (Negative) 06/12/21 17:00 Urine Nitrite Neg (Negative) 06/12/21 17:00 Urine Bilirubin Neg (Negative) 06/12/21 17:00 Urine Urobilinogen < 2.0 mg/dL (<2.0) 06/12/21 17:00 Ur Leukocyte Esterase Neg (Negative) 06/12/21 17:00 Urine WBC (Auto) < 1.0 /HPF (0.0-6.0) 06/12/21 17:00 Urine RBC (Auto) < 1.0 /HPF (0.0-6.0) 06/12/21 17:00 Urine Creatinine 81.1 mg/dL (0.1-20.0) H 06/15/21 10:40 Urine Sodium 42 mmol/L 06/15/21 10:40 Coronavirus (PCR) Negative (Negative) 06/12/21 09:50 Blood Type O POSITIVE 06/11/21 19:20 Antibody Screen Negative 06/11/21 19:20 Crossmatch See Detail 06/11/21 19:20 Microbiology: Microbiology 06/12/21 09:40 Peripheral/Venous Blood Culture - Final NO GROWTH AFTER 5 DAYS 06/12/21 09:40 Peripheral/Venous Blood Culture - Final NO GROWTH AFTER 5 DAYS Lujan/IV: Voiding Method Indwelling Catheter Active Medications - Current Medications Current Medications: Generic Name Dose Route Start Last Admin Trade Name Freq PRN Reason Stop Dose Admin Famotidine 10 mg 06/15/21 22:00 06/16/21 21:02 Famotidine 20 Mg/2 Ml Inj IV 10 mg BID JOLENE Administration Fentanyl 50 mcg 06/11/21 22:55 06/15/21 16:50 Fentanyl 100 Mcg/2 Ml Inj IV 50 mcg Q10MIN PRN Administration ANALGESIA Hydralazine HCl 10 mg 06/16/21 08:00 06/17/21 05:29 Hydralazine 20 Mg/1 Ml Inj IV 10 mg Q4H PRN Administration Hypertension Hydromorphone HCl 0.5 mg 06/11/21 20:42 Hydromorphone 1 Mg/1 Ml Inj IV Q3H PRN Pain , Severe (7-10) Midazolam DRIP Premix 100 mg in 100 mls @ 1 mls/hr 06/11/21 23:00 06/15/21 17:34 Midazolam/Ns 100 Mg/100 Ml IV 0 mg/hr TITR JOLENE 0 mls/hr Titration Protocol 1 MG/HR Fentanyl Citrate 2,000 mcg in 100 mls @ 5.466 mls/hr 06/11/21 23:00 06/17/21 11:04 Fentanyl Drip Premix IV 4 mcg/kg/hr TITR JOLENE 21.863 mls/hr Titration Protocol 1 MCG/KG/HR Phenylephrine HCl 100 mg/ 100 mls @ 3 mls/hr 06/11/21 23:45 06/14/21 07:00 Sodium Chloride IV 0 mcg/min TITR JOLENE 0 mls/hr Titration Protocol 50 MCG/MIN NORepinephrine/NS 8 MG-250 ML 8 mg in 250 mls @ 3.75 mls/hr 06/12/21 02:00 06/14/21 05:56 Norepinephrine/Ns 8 Mg-250 Ml (Double Conc) IV 0 mcg/min TITRATE JOLENE 0 mls/hr Titration Protocol 2 MCG/MIN Propofol 1,000 mg in 100 mls @ 3.279 mls/hr 06/12/21 03:00 06/17/21 11:05 Diprivan 10 Mg/Ml IV 25 mcg/kg/min TITR JOLENE 16.397 mls/hr Titration Protocol 5 MCG/KG/MIN Piperacillin Sod/Tazobactam Sod 3.375 gm in 50 mls @ 100 mls/hr 06/15/21 12:00 06/17/21 05:30 Zosyn/Ns 3.375gm/50ml IV 100 mls/hr Q6HR JOLENE Administration Amino Acids/Electrolytes/Dextrose 1,999.92 mls @ 83.33 mls/hr 06/16/21 20:00 06/16/21 20:45 Tpn Adult IV 06/17/21 19:59 83.33 mls/hr DAILY@2000 [facility] Administration Protocol Insulin Glargine 15 units 06/17/21 10:00 06/17/21 11:00 Insulin Glargine 100 Units/Ml SUB-Q 15 units BID JOLENE Administration Insulin Human Lispro 0 unit 06/12/21 12:00 06/17/21 05:32 Insulin Lispro 100 Unit/Ml SUB-Q 8 unit Q6HR JOLENE Administration Protocol Methylprednisolone Sodium Succinate 125 mg 06/11/21 22:00 06/17/21 05:28 Methylprednisolone Sod Succinate 125 Mg/2 Ml Inj IV 125 mg Q8HR JOLENE Administration Metoclopramide HCl 10 mg 06/11/21 20:42 Metoclopramide 10 Mg/2 Ml Inj IV Q6H PRN Nausea And Vomiting Ondansetron HCl 4 mg 06/11/21 20:42 Ondansetron 4 Mg/2 Ml Inj IV Q3H PRN Nausea And Vomiting Sodium Chloride 10 ml 06/11/21 22:00 06/16/21 21:05 Sodium Chloride 0.9% 10 Ml Flush Syringe IV 10 ml BID JOLENE Administration Sodium Chloride 10 ml 06/11/21 20:42 Sodium Chloride 0.9% 10 Ml Flush Syringe IV PRN PRN LINE FLUSH Nutrition/Malnutrition Assess - Dietary Evaluation Nutrition/Malnutrition Findings: Nutrition Notes Start: 06/16/21 12:10 Freq: Status: Active Protocol: Document 06/16/21 12:10 BRITNI (Rec: 06/16/21 12:35 [facility] [id number]) Nutrition Notes Need for Assessment generated from: MD Order Initial or Follow up Assessment Current Diagnosis Diabetes,Sepsis,Hypertension, Respiratory Failure Other Pertinent Diagnosis Jeremiah's angina, (R) pneumothorax, Coagulopathy, s/ p cardiac arrest, gout Current Diet No diet ordered Labs/Tests Na 148 K 3.3 Cl 115.1 CO2 - 21 BUN 54 Cr 1.6 BG 367 Ca 7.4 (adjusted 8.3) Pertinent Medications Clinimix ordered yesterday (4. 25% amino acids/10% dextrose at 84ml/hr), Lantus, Humalog, Solumedrol, Propofol at 3. 279ml/hr (provides 87 kcal) Height 5 ft 8 in Weight 109.316 kg [place] Body Weight (kg) 63.63 BMI 36.6 Weight Status Obese Subjective/Other Information RD consulted for TPN. Pt on vent support; difficult intubation requiring cricothyrotomy. Endotracheal tube was sutured in. MD does not want to insert OGT/NGT at this time given current situation with the neck. Pt will likely need a trach and PEG. PICC line ordered. Percent of energy/protein needs met: 52% energy 68% pro (from Clinimix) Burn Absent Trauma Absent Minimum of two criteria No #1 Nutrition Diagnosis Inadequate oral intake Etiology [facility] ventilation As Evidenced by Signs and Symptoms pt NPO Is patient on ventilator? Yes Is Patient Ambulatory and/or Out of Bed No REE-([facility]-confined to bed) 9005.746 Calculation Used for Recommendations 65-70% energy needs Additional Notes Energy needs: 1280-1379kcal/ day Pro needs 2g/kg IBW: 127g/day Fluid needs 1ml/kcal Nutrition Intervention Nutrition Support: Start PN at 83.33ml/hr: MVI, thiamine, 5% dextrose, 4.3% amino acids, 0mEq Na, 80mEq K, 0mEq Mg, 10mEq Ca, 20mmol Phos, 0% chloride/100% acetate . Osmolality: 765. Kcal 680 Protein (gm) 85 Carbohydrates (gm) 100 Fat (gm) 0 Fluid (mL) 2,000 Fiber (gm) 0 Goal #1 PN to meet nutrient needs as best possible Anticipated Discharge Needs: Unable to identify at this time Follow-Up By: 06/17/21 Additional Comments Labs in am: BMP, Mg, Phos F/U: vent status, trach/PEG placement, propofol, PICC line placement
[2021-06-16] MEDS: methylPREDNISolone Sod Succinate 125 MG/2 ML INJ IV SCH ×2 (18:15→21:03)
[2021-06-16] MEDS ORDERED: TOTAL PARENTERAL NUTRITION 1,999.92 ML IV SCH (20:00)
[2021-06-17] MEDS: PIPERACILLIN/TAZOBACTAM 3.375 3.375 GM/50 ML BAG IV SCH ×6 (00:17→23:44)
[2021-06-17] MEDS: INSULIN LISPRO 100 UNIT/ML SUB-Q SCH ×4 (00:18→18:15)
[2021-06-17] MEDS: fentaNYL DRIP Premix 2,000 MCG/100 ML BAG IV SCH ×5 (02:16→22:37)
--- NOTE | 2021-06-17 04:41 | XRay Report ---
CHEST 1 VIEW INDICATION / CLINICAL INFORMATION: intubated. COMPARISON: Chest x-ray 06/16/2021 FINDINGS: SUPPORT DEVICES: Right-sided chest tube and right-sided PICC unchanged. Endotracheal tube grossly sta ble in position.. HEART / MEDIASTINUM: Stable. LUNGS / PLEURA: Interval resolution of previous right pneumothorax. Scattered mid and lower lung opac ities bilaterally. ADDITIONAL FINDINGS: Extensive subcutaneous emphysema bilaterally present has improved on the right. IMPRESSION: 1. Interval improvement in the amount of subcutaneous emphysema particularly along the right chest wa ll. 2. Near total resolution of right-sided pneumothorax. 3. Little change in scattered lung opacities. Signer Name: Raza Alfonso II, MD Signed: 06/17/2021 4:37 AM Workstation Name: [id number]
[2021-06-17 05:11] LABS: ABG Base Excess -0.4 mmol/L (-2.0-3.0); ABG HCO3 22.6 mmol/L (20.0-26.0); ABG Methemoglobin 0.5 % (0.0-1.5); ABG Oxygen Saturation 98.9 % (95.0-99.0); ABG PCO2 31.1 mm Hg; ABG PH 7.479 pH Units (7.350-7.450); ABG PO2 143.1 mm Hg (80.0-90.0)
[2021-06-17] MEDS: methylPREDNISolone Sod Succinate 125 MG/2 ML INJ IV SCH ×4 (05:28→21:44)
[2021-06-17] MEDS: hydrALAZINE 20 MG/1 ML INJ IV PRN ×3 (05:29→23:42)
[2021-06-17 06:36] LABS: Hematocrit 25.5 % (30.3-42.9); Hemoglobin 8.2 gm/dl (10.1-14.3); Mean Corpuscular HGB Conc 32 % (30-34); Mean Corpuscular Volume 80 fl (79-97); Platelet Count 128 K/mm3 (140-440); Red Blood Count 3.17 M/mm3 (3.65-5.03)
[2021-06-17 06:43] LABS: Red Cell Distribution Width 21.2 % (13.2-15.2)
--- NOTE | 2021-06-17 07:46 | Progress Note ---
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 Continue IV antibiotics and observation with ventilatory support. The neck exploration appears stable at this time without further signs of bleeding. Chest x-rays are also with resolution of pneumothorax and decreasing amounts of subcu emphysema. We will reassess the airway on today with anesthesia to see if any further support is required. Chest x-ray reviewed showing good position of the chest tube. No obvious signs of mediastinal air on the chest x-ray. CT of the chest is negative for obvious signs of mediastinitis. Description of care given to the family via Tk Suarez who is a [id number] and of Srinivas Suarez the oldest brother of the family. Attempt was made to call Nikki Garcia the patient's sister as [phone] however the line was busy and I was unable to leave a message for her. Subjective Date of service: 06/17/21 Narrative: Chest x-ray today with less subcu emphysema. Chest tube remains in good position. Objective Vital Signs - 12hr 06/16/21 06/16/21 06/16/21 19:45 19:51 20:00 Temperature 99.0 F Pulse Rate 54 L 49 L Pulse Rate [ 49 L From Monitor] Respiratory 22 18 Rate Blood Pressure 120/54 111/49 O2 Sat by Pulse 100 100 Oximetry 06/16/21 06/16/21 06/16/21 20:15 20:31 20:45 Temperature Pulse Rate 44 L 65 71 Pulse Rate [ From Monitor] Respiratory 22 Rate Blood Pressure 112/48 139/57 147/58 O2 Sat by Pulse 100 100 100 Oximetry 06/16/21 06/16/21 06/16/21 21:00 21:15 21:30 Temperature Pulse Rate 67 67 61 Pulse Rate [ From Monitor] Respiratory 22 Rate Blood Pressure 132/52 140/60 138/66 O2 Sat by Pulse 100 100 100 Oximetry 06/16/21 06/16/21 06/16/21 21:45 22:00 22:15 Temperature Pulse Rate 52 L 50 L 50 L Pulse Rate [ From Monitor] Respiratory 22 Rate Blood Pressure 123/61 119/63 129/63 O2 Sat by Pulse 100 100 100 Oximetry 06/16/21 06/16/21 06/16/21 22:30 22:45 23:01 Temperature Pulse Rate 46 L 43 L 47 L Pulse Rate [ From Monitor] Respiratory 22 22 22 Rate Blood Pressure 133/67 141/69 134/70 O2 Sat by Pulse 100 100 100 Oximetry 06/16/21 06/16/21 06/16/21 23:08 23:13 23:15 Temperature Pulse Rate 49 L 49 L 52 L Pulse Rate [ From Monitor] Respiratory 22 22 Rate Blood Pressure 134/70 143/72 O2 Sat by Pulse 100 100 Oximetry 06/16/21 06/16/21 06/16/21 23:23 23:30 23:39 Temperature 98.1 F Pulse Rate 60 48 L Pulse Rate [ From Monitor] Respiratory 22 Rate Blood Pressure 143/72 136/70 O2 Sat by Pulse 100 100 Oximetry 06/16/21 06/17/21 06/17/21 23:45 00:00 00:01 Temperature Pulse Rate 59 L 48 L 68 Pulse Rate [ 49 L From Monitor] Respiratory 22 22 22 Rate Blood Pressure 146/71 145/76 O2 Sat by Pulse 100 100 100 Oximetry 06/17/21 06/17/21 06/17/21 00:15 00:31 00:45 Temperature Pulse Rate 56 L 68 50 L Pulse Rate [ From Monitor] Respiratory 22 17 22 Rate Blood Pressure 144/80 144/80 128/60 O2 Sat by Pulse 100 100 100 Oximetry 06/17/21 06/17/21 06/17/21 01:01 01:15 01:31 Temperature Pulse Rate 51 L 45 L 45 L Pulse Rate [ From Monitor] Respiratory 22 22 22 Rate Blood Pressure 128/60 128/60 128/60 O2 Sat by Pulse 100 100 99 Oximetry 06/17/21 06/17/21 06/17/21 01:45 02:01 02:15 Temperature Pulse Rate 39 L 50 L 47 L Pulse Rate [ From Monitor] Respiratory 22 22 22 Rate Blood Pressure 128/60 128/60 128/60 O2 Sat by Pulse 100 100 99 Oximetry 06/17/21 06/17/21 06/17/21 02:31 02:45 03:01 Temperature Pulse Rate 56 L 47 L 44 L Pulse Rate [ From Monitor] Respiratory 22 22 22 Rate Blood Pressure 153/58 153/58 153/61 O2 Sat by Pulse 99 100 99 Oximetry 06/17/21 06/17/21 06/17/21 03:15 03:23 03:31 Temperature 99.0 F Pulse Rate 46 L 46 L Pulse Rate [ From Monitor] Respiratory 22 Rate Blood Pressure 153/61 153/61 O2 Sat by Pulse 99 100 Oximetry 06/17/21 06/17/21 06/17/21 03:45 03:50 04:00 Temperature Pulse Rate 40 L 43 L 47 L Pulse Rate [ 49 L From Monitor] Respiratory 22 22 Rate Blood Pressure 153/61 152/62 O2 Sat by Pulse 100 100 100 Oximetry 06/17/21 06/17/21 06/17/21 04:01 04:15 04:31 Temperature Pulse Rate 49 L 42 L 50 L Pulse Rate [ From Monitor] Respiratory 22 Rate Blood Pressure 153/61 153/61 153/61 O2 Sat by Pulse 100 100 100 Oximetry 06/17/21 06/17/21 06/17/21 04:45 05:01 05:15 Temperature Pulse Rate 44 L 49 L 46 L Pulse Rate [ From Monitor] Respiratory 22 Rate Blood Pressure 153/61 153/61 153/61 O2 Sat by Pulse 100 100 100 Oximetry 06/17/21 06/17/21 06/17/21 05:29 05:30 05:45 Temperature Pulse Rate 40 L 46 L 56 L Pulse Rate [ From Monitor] Respiratory 19 22 Rate Blood Pressure 178/78 159/69 159/69 O2 Sat by Pulse 100 100 Oximetry 06/17/21 06/17/21 06/17/21 06:00 06:15 06:31 Temperature Pulse Rate 58 L 79 81 Pulse Rate [ From Monitor] Respiratory 22 22 20 Rate Blood Pressure 132/51 132/51 132/51 O2 Sat by Pulse 100 100 100 Oximetry 06/17/21 06/17/21 06/17/21 06:45 07:01 07:15 Temperature Pulse Rate 77 71 67 Pulse Rate [ From Monitor] Respiratory 17 22 21 Rate Blood Pressure 132/51 132/51 132/51 O2 Sat by Pulse 93 100 100 Oximetry - Neck no masses, no bruits, other (Dressing on neck intact BILL drain in place) - Respiratory normal expansion, other (Decrease evidence of subcu emphysema chest tube in place dressing intact) - Labs 06/17/21 05:30 06/17/21 05:30 Diabetes panel 06/17/21 Range/Units 05:30 Sodium 148 H (137-145) mmol/L Potassium 3.7 (3.6-5.0) mmol/L Chloride 113.7 H (98-107) mmol/L Carbon Dioxide 20 L (22-30) mmol/L BUN 57 H (7-17) mg/dL Creatinine 1.4 H (0.6-1.2) mg/dL Glucose 351 H (65-100) mg/dL Calcium 8.0 L (8.4-10.2) mg/dL Calcium panel 06/17/21 Range/Units 05:30 Calcium 8.0 L (8.4-10.2) mg/dL Phosphorus 2.30 L (2.5-4.5) mg/dL Pituitary panel 06/17/21 Range/Units 05:30 Sodium 148 H (137-145) mmol/L Potassium 3.7 (3.6-5.0) mmol/L Chloride 113.7 H (98-107) mmol/L Carbon Dioxide 20 L (22-30) mmol/L BUN 57 H (7-17) mg/dL Creatinine 1.4 H (0.6-1.2) mg/dL Glucose 351 H (65-100) mg/dL Calcium 8.0 L (8.4-10.2) mg/dL Adrenal panel 06/17/21 Range/Units 05:30 Sodium 148 H (137-145) mmol/L Potassium 3.7 (3.6-5.0) mmol/L Chloride 113.7 H (98-107) mmol/L Carbon Dioxide 20 L (22-30) mmol/L BUN 57 H (7-17) mg/dL Creatinine 1.4 H (0.6-1.2) mg/dL Glucose 351 H (65-100) mg/dL Calcium 8.0 L (8.4-10.2) mg/dL
--- NOTE | 2021-06-17 10:39 | Progress Note ---
Assessment and Plan Assessment and plan: This is a 76-year-old female with HTN, Coumadin use , dental caries, PVD s/p stenting right leg, DM, arthritis, depression, gout, and ? Pulmonary hypertension who presented to emergency department on 06/11 with complaints of pain to mandible area and throat and swelling. Work-up in the emergency department included CT scan of the head and neck which showed findings consistent with Jeremiah's angina and anesthesia was called for intubation. Anesthesia intubation attempts were unsuccessful and surgery was consulted for cricothyroidotomy which was unsuccessful in the emergency department and patient was taken to the OR for tracheostomy. Intubation procedure was complicated by development of pneumothorax and excessive bleeding due to supratherapeutic INR s/p multiple FFP's and vitamin K. Remains intubated and sedated in the ICU. Hospital course to date: 06/12: Patient received additional 2 units FFP and 1 unit PRBC and vitamin K today. Overnight critical care placed a femoral CVL. Patient sedated on fentanyl, propofol and Versed. Currently on Fabian-Synephrine and Levophed for blood pressure maintenance. Remains amatory support. Infectious disease consulted. Started on sliding scale insulin and recultured. COVID-19 PCR pending. Surgery at bedside to place chest tube. 06/13: Patient was taken back to the OR today for exchange cricothyroid to possible tracheostomy. Patient returned with ETT. Chest tube was changed to larger size in the OR. Patient was hypotensive, tachycardic, hypoxic in the OR and received hespan, albumin and an A-line. Upon arrival patient was increased to max dose Levophed for hypotension which has resolved. Titrating vasopressors as tolerated. Remains on sedation with 3 agents. Apparently patient was not ventilating her left lung Intra-Op. Noted to have subcu hematoma and trauma to postpharyngeal area. Questionable decrease cardiac wall motion noted in OR-> will order echocardiogram to further investigate. Patient received additional PRBC today. DIC panel resulted as normal. Patient BUN/creatinine did increase as well as noted to have lactic acidosis. May need IV bolus in addition to pressor use. Likely bronc with Pulmicort today as repeat CXR showed right possible pneumo hydrothorax 06/14: Antibiotics changed to Zosyn per ID, surgical packing removed from neck and makeshift Faith drain placed by surgery and old chronic thyroidectomy site. CXR was completed and RN heard gurgling and blood was noted on dressing. ST elevation noted on bedside monitor and patient was hypoxic. FiO2 increased to 100%. However shortly after patient lost her pulse and ACLS was initiated. Patient received 3 rounds of epinephrine and ROSC was achieved. Stat portable CXR showed resolution of lower lobe collapse on the left and stable right-sided chest tube with hemothorax. [facility] updated family. Patient H/H noted to be 7.2/2 3.2 and did RN to transfuse prepared PRBC which [facility] blood bank. Bedside echo completed. 06/15: Off sedation, intermittently follows commands, remains on the prednisone. Surgery will reassess airway on Thursday to see if any further support is required. Urine studies indicate prerenal, given IV bolus and started on Clinimix today. 06/16: Patient restarted on fentanyl drip due to hypertension. Given more LR due to CR improvement post LR yesterday. Patient started on Lantus subcu after given one-time dose of Lantus. PICC placed today. Patient had a CT chest today which showed no mediasinusitis but extensive subcutaneous air. 06/17: General Surgery recommended transferring patient to a ENT specialized facility. Placed a call to [facility], spoke with the energy and conservation technician, Dr. Duckworth, who stated that a transfer is possible as long their ENT team accept the patient. Awaiting on a final response. Continue current supportive measures. Basal insulin adjusted for hyperglycemia. Neuro: Sedated, h/o depression, arthritis -Sedated propofol, fentanyl gtt -RASS goal -3 to -4 -Resume sedation with fentanyl and propofol -Bilateral wrist restraints in place for safety -Avoid delirium -Reorientation as needed -Maintain sleep-wake cycle Cardiac: S/p cardiac arrest, h/o htn, PVD s/p stenting Right leg -06/14 cardiac arrest with ROSC -S/p vasopressor support with Levophed and Fabian-Synephrine -Blood pressure monitoring per protocol -Pressure monitoring via A-line -Echocardiogram pending Respiratory: Acute hypoxic respiratory failure, right pneumothorax -[facility] consulted, appreciate recommendations -S/p emergent cricothyroid with surgery with 8.00 ETT -A.m. vent settings: Assist-control, rate 22, tidal volume 500, PEEP six, FiO2 50% -See RT notes for titration -A.m. ABG and CXR noted -Right chest tube replaced by surgery -CT to wall suction -Changed to larger bore on 06/13 -Postop CXR shows possible hydropneumothorax on right side -06/13 bronchoscopy showed possible blood clot in left lung which may be acting as mucous plug however it was left in place due to possible bleeding inside lung if removed. -CXR post cardiac arrest shows clearance of mucous plug -06/16 CT chest shows moderate right pneumothorax with collapse of right upper lobe, right thoracostomy tube terminates at the collapsed right upper lobe, bilateral bronchus opacities compatible with infectious/inflammatory etiology, bilateral small pleural effusion, extensive subcutaneous air, small fluid collection in the anterior mediastinum is nonspecific -VAP bundle -SPO2 monitoring : Acute kidney injury possibly secondary to vasomotor nephropathy hypernatremia -Strict intake and output -Renally dose medications -Avoid nephrotoxic medications -Daily weights -Consider nephrology consult if worsens -Trend BMP ID: 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 dental caries -CT neck with contrast showed a significant right floor of mild swelling with extension into the submandibular and submental spaces, significant thickening and inflammation involving the right pharyngeal wall, with the parapharyngeal and retropharyngeal spaces at the level of the thyroid cartilage, epiglottis significantly swollen and so are the aryepiglottic folds resulting in sign ificant airway narrowing at this level, no lymphadenopathy, symmetric submandibular and parathyroid glands, S few scattered caries but no periapical lucencies, nonspecific calcification along the right lateral oropharynx, no definite stone seen within the territory of the submandibular gland ducts, no suspicious rashes lesion -Infectious disease and general surgery consulted, appreciate recommendations -s/p cricothyroidectomy -Will follow surgery to direction and treatment of injury -Per surgery may have mucosal injury -Intra-Op findings include post pharyngeal swelling and bruising -Solu-Medrol 125 every 8 -Antibiotic therapy Zosyn -COVID-19 PCR negative -f/u blood culture -Monitor WBC and temperature curve -s/p 5L normal saline bolus in ED, 6 L LR bolus in ICU - repeat LR bolus today Heme: Coagulopathy, supratherapeutic INR, acute blood loss anemiq, possible component of hemorrhagic shock -Patient is on Coumadin at home -S/p 5 FFP, 7 PRBC, vitamin K x3 -Trend CBC -Presented with H/H of 10.3/34.6 and decreased to 6.7/22.4 -INR 8.18-> 4.55-> 2.1-> 1.23-> 1.16-> 1.31 -Monitor INR -Transfuse hemoglobin less than 7 -Monitor for signs of bleeding -SCDs to BLE while in bed -Avoid chemical anticoagulation in setting of recent blood loss anemia Endo: Hyperglycemia, h/o DM, gout -Patient is on TPN -Continue high dose SSI Q6hrs -Lantus adjusted BID -Avoid hypoglycemia The high probability of a clinically significant, sudden or life threatening deterioration of the [multi] system(s) required my full and direct attention, intervention and personal management. The aggregate critical care time was [60] minutes. This time is in addition to time spent performing reported procedures but includes the following: [x] Data Review and interpretation [x] Patient assessment and monitoring of vital signs [x] Documentation [x] Medication orders and management Disposition Plan: ICU Total Time Spent with Patient (Minutes): 60 History Interval history: Patient seen and examined at the bedside. Intubated and Sedated on propofol and fentanyl. Remains on TPN. JEREMIAS overnight Hospitalist Physical - Constitutional Vitals: Temp Pulse Resp BP Pulse Ox 97.7 F 50 L 22 132/58 99 06/17/21 08:00 06/17/21 09:15 06/17/21 09:15 06/17/21 09:15 06/17/21 09:15 General appearance: Present: no acute distress, obese, other (Intubated and sedated) - EENT Eyes: Present: PERRL - Respiratory Respiratory effort: normal Respiratory: bilateral: rhonchi - Cardiovascular Heart rate: 52 Rhythm: regular Heart Sounds: Present: S1 & S2 - Extremities Extremities: no ischemia, pulses intact, pulses symmetrical Extremity abnormal: edema - Peripheral Assessment Generalized Edema Type: Non-pitting Edema Degree: 2+ Capillary Refill: < 3 seconds Skin Temperature: Warm Peripheral Pulses: within normal limits - Abdominal General gastrointestinal: soft, non-distended, hypoactive bowel sounds - Integumentary Integumentary: Present: warm, dry - Psychiatric Psychiatric: other (Intubated and sedated) - Neurologic Neurologic: other (Intubated and sedated) - Allied Health Allied health notes reviewed: nursing HEART Score - HEART Score Troponin: Troponin T < 0.010 ng/mL (0.00-0.029) 06/11/21 23:21 Results - Labs CBC & Chem 7: 06/17/21 05:30 06/17/21 05:30 Labs: Laboratory Last Values WBC 7.6 K/mm3 (4.5-11.0) 06/17/21 05:30 RBC 3.17 M/mm3 (3.65-5.03) L 06/17/21 05:30 Hgb 8.2 gm/dl (10.1-14.3) L 06/17/21 05:30 Hct 25.5 % (30.3-42.9) L 06/17/21 05:30 MCV 80 fl (79-97) 06/17/21 05:30 MCH 26 pg (28-32) L 06/17/21 05:30 MCHC 32 % (30-34) 06/17/21 05:30 RDW 21.2 % (13.2-15.2) H 06/17/21 05:30 Plt Count 128 K/mm3 (140-440) L 06/17/21 05:30 Lymph % (Auto) 9.2 % (13.4-35.0) L 06/11/21 19:29 [place] % (Auto) 1.4 % (0.0-7.3) 06/11/21 19:29 Eos % (Auto) 0.2 % (0.0-4.3) 06/11/21 19:29 Baso % (Auto) 0.2 % (0.0-1.8) 06/11/21 19: Lymph # (Auto) 1.4 K/mm3 (1.2-5.4) 06/11/21 19:29 Tyler # (Auto) 0.2 K/mm3 (0.0-0.8) 06/11/21 19: Eos # (Auto) 0.0 K/mm3 (0.0-0.4) 06/11/21 19:29 Baso # (Auto) 0.0 K/mm3 (0.0-0.1) 06/11/21 19:29 Add Manual Diff Complete 06/13/21 Unknown Total Counted 100 06/13/21 Unknown Seg Neutrophils % 89.0 % (40.0-70.0) H 06/11/21 19:29 Seg Neuts % (Manual) 88.0 % (40.0-70.0) H 06/13/21 Unknown Band Neutrophils % 2.0 % 06/13/21 Unknown Lymphocytes % (Manual) 4.0 % (13.4-35.0) L 06/13/21 Unknown Reactive Lymphs % (Man) 0 % 06/13/21 Unknown Monocytes % (Manual) 6.0 % (0.0-7.3) 06/13/21 Unknown Eosinophils % (Manual) 0 % (0.0-4.3) 06/13/21 Unknown Basophils % (Manual) 0 % (0.0-1.8) 06/13/21 Unknown Metamyelocytes % 0 % 06/13/21 Unknown Myelocytes % 0 % 06/13/21 Unknown Promyelocytes % 0 % 06/13/21 Unknown Blast Cells % 0 % 06/13/21 Unknown Nucleated RBC % Not Reportable 06/13/21 Unknown Seg Neutrophils # 14.0 K/mm3 (1.8-7.7) H 06/11/21 19:29 Seg Neutrophils # Man 19.8 K/mm3 (1.8-7.7) H 06/13/21 Unknown Band Neutrophils # 0.5 K/mm3 06/13/21 Unknown Lymphocytes # (Manual) 0.9 K/mm3 (1.2-5.4) L 06/13/21 Unknown Abs React Lymphs (Man) 0.0 K/mm3 06/13/21 Unknown Monocytes # (Manual) 1.4 K/mm3 (0.0-0.8) H 06/13/21 Unknown Eosinophils # (Manual) 0.0 K/mm3 (0.0-0.4) 06/13/21 Unknown Basophils # (Manual) 0.0 K/mm3 (0.0-0.1) 06/13/21 Unknown Metamyelocytes # 0.0 K/mm3 06/13/21 Unknown Myelocytes # 0.0 K/mm3 06/13/21 Unknown Promyelocytes # 0.0 K/mm3 06/13/21 Unknown Blast Cells # 0.0 K/mm3 06/13/21 Unknown WBC Morphology Not Reportable 06/13/21 Unknown Hypersegmented Neuts Not Reportable 06/13/21 Unknown Hyposegmented Neuts Not Reportable 06/13/21 Unknown Hypogranular Neuts Not Reportable 06/13/21 Unknown Smudge Cells Not Reportable 06/13/21 Unknown Toxic Granulation 2+ 06/13/21 Unknown Toxic Vacuolation Not Reportable 06/13/21 Unknown Dohle Bodies Not Reportable 06/13/21 Unknown Pelger-Huet Anomaly Not Reportable 06/13/21 Unknown Dennis Rods Not Reportable 06/13/21 Unknown Platelet Estimate Consistent w auto 06/13/21 Unknown Clumped Platelets Not Reportable 06/13/21 Unknown Plt Clumps, EDTA Not Reportable 06/13/21 Unknown Large Platelets Not Reportable 06/13/21 Unknown Giant Platelets Not Reportable 06/13/21 Unknown Platelet Satelliting Not Reportable 06/13/21 Unknown Plt Morphology Comment Not Reportable 06/13/21 Unknown RBC Morphology Not Reportable 06/13/21 Unknown Dimorphic RBCs Not Reportable 06/13/21 Unknown Polychromasia Few 06/13/21 Unknown Hypochromasia 2+ 06/13/21 Unknown Poikilocytosis Not Reportable 06/13/21 Unknown Anisocytosis 1+ 06/13/21 Unknown Microcytosis Not Reportable 06/13/21 Unknown Macrocytosis Not Reportable 06/13/21 Unknown Spherocytes Not Reportable 06/13/21 Unknown Pappenheimer Bodies Not Reportable 06/13/21 Unknown Sickle Cells Not Reportable 06/13/21 Unknown Target Cells Not Reportable 06/13/21 Unknown Tear Drop Cells Not Reportable 06/13/21 Unknown Ovalocytes Not Reportable 06/13/21 Unknown Stomatocytes Few 06/12/21 01:45 Helmet Cells Not Reportable 06/13/21 Unknown [place] Bodies Not Reportable 06/13/21 Unknown [place] Rings Not Reportable 06/13/21 Unknown Nelsy Cells Not Reportable 06/13/21 Unknown Bite Cells Not Reportable 06/13/21 Unknown Crenated Cell Not Reportable 06/13/21 Unknown Elliptocytes Not Reportable 06/13/21 Unknown Acanthocytes (Spur) Not Reportable 06/13/21 Unknown Rouleaux Not Reportable 06/13/21 Unknown Hemoglobin C Crystals Not Reportable 06/13/21 Unknown Schistocytes Not Reportable 06/13/21 Unknown Malaria parasites Not Reportable 06/13/21 Unknown Edin Bodies Not Reportable 06/13/21 Unknown Hem Pathologist Commnt No 06/13/21 Unknown PT 17.6 Sec. (12.2-14.9) H 06/13/21 Unknown INR 1.31 (0.87-1.13) H 06/13/21 Unknown APTT 26.4 Sec. (24.2-36.6) 06/13/21 Unknown Fibrinogen 546 mg/dl (211-480) H 06/13/21 Unknown D-Dimer 1244.63 ng/mlDDU (0-234) H 06/13/21 Unknown ABG pH 7.479 pH Units (7.350-7.450) H 06/17/21 04:50 POC ABG pCO2 25.6 mmHg (32.0-48.0) L 06/13/21 04:31 ABG pCO2 31.1 mm Hg 06/17/21 04:50 POC ABG pO2 138.8 mmHg (83-108) H 06/13/21 04:31 ABG pO2 143.1 mm Hg (80.0-90.0) H 06/17/21 04:50 POC ABG HCO3 21.4 06/13/21 04:31 ABG HCO3 22.6 mmol/L (20.0-26.0) 06/17/21 04:50 ABG O2 Saturation 98.9 % (95.0-99.0) 06/17/21 04:50 ABG O2 Content 14.0 (0.0-44) 06/17/21 04:50 POC ABG Base Excess -0.7 06/13/21 04:31 ABG Base Excess -0.4 mmol/L (-2.0-3.0) 06/17/21 04:50 ABG Hemoglobin 10.0 gm/dl (12.0-16.0) L 06/17/21 04:50 ABG Oxyhemoglobin 98.1 (94-98) H 06/13/21 04:31 ABG Carboxyhemoglobin 1.1 % (0.0-5.0) 06/17/21 04:50 ABG Methemoglobin 0.5 % (0.0-1.5) 06/17/21 04:50 Oxyhemoglobin 97.2 % (95.0-99.0) 06/17/21 04:50 Carboxyhemoglobin 0.8 (0.5-1.5) 06/13/21 04:31 FiO2 40 % 06/17/21 04:50 FiO2 % 40.0 06/13/21 04:31 Sodium 148 mmol/L (137-145) H 06/17/21 05:30 Potassium 3.7 mmol/L (3.6-5.0) 06/17/21 05:30 Chloride 113.7 mmol/L (98-107) H 06/17/21 05:30 Carbon Dioxide 20 mmol/L (22-30) L 06/17/21 05:30 Anion Gap 18 mmol/L 06/17/21 05:30 BUN 57 mg/dL (7-17) H 06/17/21 05:30 Creatinine 1.4 mg/dL (0.6-1.2) H 06/17/21 05:30 Estimated GFR 44 ml/min 06/17/21 05:30 BUN/Creatinine Ratio 41 % 06/17/21 05:30 Glucose 351 mg/dL (65-100) H 06/17/21 05:30 POC Glucose 324 mg/dL (70-105) H 06/17/21 05:18 Lactic Acid 5.30 mmol/L (0.7-2.0) H* 06/13/21 15:45 Calcium 8.0 mg/dL (8.4-10.2) L 06/17/21 05:30 Phosphorus 2.30 mg/dL (2.5-4.5) L 06/17/21 05:30 Magnesium 2.30 mg/dL (1.7-2.3) 06/17/21 05:30 Total Bilirubin 0.40 mg/dL (0.1-1.2) 06/15/21 03:56 AST 64 units/L (5-40) H 06/15/21 03:56 ALT 106 units/L (7-56) H 06/15/21 03:56 Alkaline Phosphatase 55 units/L (35-129) 06/15/21 03:56 Troponin T < 0.010 ng/mL (0.00-0.029) 06/11/21 23:21 C-Reactive Protein 3.30 mg/dL (0.00-1.30) H 06/16/21 04:32 Total Protein 5.1 g/dL (6.3-8.2) L 06/15/21 03:56 Albumin 2.9 g/dL (3.9-5) L 06/15/21 03:56 Albumin/Globulin Ratio 1.3 % 06/15/21 03:56 Triglycerides 189 mg/dL (2-149) H 06/14/21 06:15 Urine Color Yellow (Yellow) 06/12/21 17:00 Urine Turbidity Clear (Clear) 06/12/21 17:00 Urine pH 5.0 (5.0-7.0) 06/12/21 17:00 Ur Specific [place] 1.035 (1.003-1.030) H 06/12/21 17:00 Urine Protein 30 mg/dl mg/dL (Negative) 06/12/21 17:00 Urine Glucose (UA) 50 mg/dL (Negative) 06/12/21 17:00 Urine Ketones Tr mg/dL (Negative) 06/12/21 17:00 Urine Blood Neg (Negative) 06/12/21 17:00 Urine Nitrite Neg (Negative) 06/12/21 17:00 Urine Bilirubin Neg (Negative) 06/12/21 17:00 Urine Urobilinogen < 2.0 mg/dL (<2.0) 06/12/21 17:00 Ur Leukocyte Esterase Neg (Negative) 06/12/21 17:00 Urine WBC (Auto) < 1.0 /HPF (0.0-6.0) 06/12/21 17:00 Urine RBC (Auto) < 1.0 /HPF (0.0-6.0) 06/12/21 17:00 Urine Creatinine 81.1 mg/dL (0.1-20.0) H 06/15/21 10:40 Urine Sodium 42 mmol/L 06/15/21 10:40 Coronavirus (PCR) Negative (Negative) 06/12/21 09:50 Blood Type O POSITIVE 06/11/21 19:20 Antibody Screen Negative 06/11/21 19:20 Crossmatch See Detail 06/11/21 19:20 Microbiology: Microbiology 06/12/21 09:40 Peripheral/Venous Blood Culture - Final NO GROWTH AFTER 5 DAYS 06/12/21 09:40 Peripheral/Venous Blood Culture - Final NO GROWTH AFTER 5 DAYS Lujan/IV: Voiding Method Indwelling Catheter Active Medications - Current Medications Current Medications: Generic Name Dose Route Start Last Admin Trade Name Freq PRN Reason Stop Dose Admin Famotidine 10 mg 06/15/21 22:00 06/16/21 21:02 Famotidine 20 Mg/2 Ml Inj IV 10 mg BID JOLENE Administration Fentanyl 50 mcg 06/11/21 22:55 06/15/21 16:50 Fentanyl 100 Mcg/2 Ml Inj IV 50 mcg Q10MIN PRN Administration ANALGESIA Hydralazine HCl 10 mg 06/16/21 08:00 06/17/21 05:29 Hydralazine 20 Mg/1 Ml Inj IV 10 mg Q4H PRN Administration Hypertension Hydromorphone HCl 0.5 mg 06/11/21 20:42 Hydromorphone 1 Mg/1 Ml Inj IV Q3H PRN Pain , Severe (7-10) Midazolam DRIP Premix 100 mg in 100 mls @ 1 mls/hr 06/11/21 23:00 06/15/21 17:34 Midazolam/Ns 100 Mg/100 Ml IV 0 mg/hr TITR JOLENE 0 mls/hr Titration Protocol 1 MG/HR Fentanyl Citrate 2,000 mcg in 100 mls @ 5.466 mls/hr 06/11/21 23:00 06/17/21 08:15 Fentanyl Drip Premix IV 3 mcg/kg/hr TITR JOLENE 16.397 mls/hr Administration Protocol 1 MCG/KG/HR Phenylephrine HCl 100 mg/ 100 mls @ 3 mls/hr 06/11/21 23:45 06/14/21 07:00 Sodium Chloride IV 0 mcg/min TITR JOLENE 0 mls/hr Titration Protocol 50 MCG/MIN NORepinephrine/NS 8 MG-250 ML 8 mg in 250 mls @ 3.75 mls/hr 06/12/21 02:00 06/14/21 05:56 Norepinephrine/Ns 8 Mg-250 Ml (Double Conc) IV 0 mcg/min TITRATE JOLENE 0 mls/hr Titration Protocol 2 MCG/MIN Propofol 1,000 mg in 100 mls @ 3.279 mls/hr 06/12/21 03:00 06/17/21 08:29 Diprivan 10 Mg/Ml IV 30 mcg/kg/min TITR JOLENE 19.677 mls/hr Titration Protocol 5 MCG/KG/MIN Piperacillin Sod/Tazobactam Sod 3.375 gm in 50 mls @ 100 mls/hr 06/15/21 12:00 06/17/21 05:30 Zosyn/Ns 3.375gm/50ml IV 100 mls/hr Q6HR JOLENE Administration Amino Acids/Electrolytes/Dextrose 1,999.92 mls @ 83.33 mls/hr 06/16/21 20:00 06/16/21 20:45 Tpn Adult IV 06/17/21 19:59 83.33 mls/hr DAILY@2000 JOLENE Administration Protocol Insulin Glargine 15 units 06/17/21 10:00 Insulin Glargine 100 Units/Ml SUB-Q BID [facility] Insulin Human Lispro 0 unit 06/12/21 12:00 06/17/21 05:32 Insulin Lispro 100 Unit/Ml SUB-Q 8 unit Q6HR JOLENE Administration Protocol Methylprednisolone Sodium Succinate 125 mg 06/11/21 22:00 06/17/21 05:28 Methylprednisolone Sod Succinate 125 Mg/2 Ml Inj IV 125 mg Q8HR JOLENE Administration Metoclopramide HCl 10 mg 06/11/21 20:42 Metoclopramide 10 Mg/2 Ml Inj IV Q6H PRN Nausea And Vomiting Ondansetron HCl 4 mg 06/11/21 20:42 Ondansetron 4 Mg/2 Ml Inj IV Q3H PRN Nausea And Vomiting Sodium Chloride 10 ml 06/11/21 22:00 06/16/21 21:05 Sodium Chloride 0.9% 10 Ml Flush Syringe IV 10 ml BID JOLENE Administration Sodium Chloride 10 ml 06/11/21 20:42 Sodium Chloride 0.9% 10 Ml Flush Syringe IV PRN PRN LINE FLUSH Nutrition/Malnutrition Assess - Dietary Evaluation Nutrition/Malnutrition Findings: Nutrition Notes Start: 06/16/21 12:10 Freq: Status: Active Protocol: Document 06/16/21 12:10 BRITNI (Rec: 06/16/21 12:35 BRITNI [id number]) Nutrition Notes Need for Assessment generated from: MD Order Initial or Follow up Assessment Current Diagnosis Diabetes,Sepsis,Hypertension, Respiratory Failure Other Pertinent Diagnosis Jeremiah's angina, (R) pneumothorax, Coagulopathy, s/ p cardiac arrest, gout Current Diet No diet ordered Labs/Tests Na 148 K 3.3 Cl 115.1 CO2 - 21 BUN 54 Cr 1.6 BG 367 Ca 7.4 (adjusted 8.3) Pertinent Medications Clinimix ordered yesterday (4. 25% amino acids/10% dextrose at 84ml/hr), Lantus, Humalog, Solumedrol, Propofol at 3. 279ml/hr (provides 87 kcal) Height 5 ft 8 in Weight 109.316 kg [place] Body Weight (kg) 63.63 BMI 36.6 Weight Status Obese Subjective/Other Information RD consulted for TPN. Pt on vent support; difficult intubation requiring cricothyrotomy. Endotracheal tube was sutured in. MD does not want to insert OGT/NGT at this time given current situation with the neck. Pt will likely need a trach and PEG. PICC line ordered. Percent of energy/protein needs met: 52% energy 68% pro (from Clinimix) Burn Absent Trauma Absent Minimum of two criteria No #1 Nutrition Diagnosis Inadequate oral intake Etiology mech ventilation As Evidenced by Signs and Symptoms pt NPO Is patient on ventilator? Yes Is Patient Ambulatory and/or Out of Bed No REE-([facility]-confined to bed) [phone] Calculation Used for Recommendations 65-70% energy needs Additional Notes Energy needs: 1280-1379kcal/ day Pro needs 2g/kg IBW: 127g/day Fluid needs 1ml/kcal Nutrition Intervention Nutrition Support: Start PN at 83.33ml/hr: MVI, thiamine, 5% dextrose, 4.3% amino acids, 0mEq Na, 80mEq K, 0mEq Mg, 10mEq Ca, 20mmol Phos, 0% chloride/100% acetate . Osmolality: 765. Kcal 680 Protein (gm) 85 Carbohydrates (gm) 100 Fat (gm) 0 Fluid (mL) 2,000 Fiber (gm) 0 Goal #1 PN to meet nutrient needs as best possible Anticipated Discharge Needs: Unable to identify at this time Follow-Up By: 06/17/21 Additional Comments Labs in am: BMP, Mg, Phos F/U: vent status, trach/PEG placement, propofol, PICC line placement
[2021-06-17] MEDS: INSULIN GLARGINE 100 UNITS/ML SUB-Q SCH ×2 (11:00→21:43)
[2021-06-17] MEDS: MIDAZOLAM/NS Drip 100mg/100ml 100 MG/100 ML BAG IV SCH (12:08)
[2021-06-17] MEDS: FAMOTIDINE 20 MG/2 ML INJ IV SCH ×2 (12:23→21:43)
--- NOTE | 2021-06-17 12:31 | Progress Note ---
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 06/17/21: spoke with surgery and they feel transfer is reasonable. I have reached out to [place] and [facility] has spoken with someone from [place]. Await to hear back from them. Continue supportive measures and adequate sedation for pain control. No PSV trials as of yet. Blood sugar control, increase lantus. Most likely secondary to steroids. Continue abx therapy. Guarded prognosis. 06/16/21: Renal function improved with fluids. IMS to give more fluids (LR) today which I agree with. FeNa is =0.7. Should be fluid responsive. Continue clinimix. Needs long acting insulin. Agree with lantus. Asked nursing to increase sedation now that we know that patient's mental status is stable. Picc today. Air leak test vs Neck CT on tomorrow. 06/15/21: Hopeful with worsening renal function ( likely from code on yesterday) that sedatives are just lingering from that. Still making good urine but output has fallen off. Will send urine sodium and urine cr to check Fena. Most likely this is prerenal. ordered renal ultrasound as well. Continue abx and steroids. Will start clinimix today. This should help with the free water piece. Will give another liter bolus of LR right now. Keep sedation off for now. Guarded prognosis. 06/14/21: Will discuss with surgery future plans. They have ordered steroids to help with inflammation and abx continue. All others appears stable and no acute evidence of bleeding at this time. Follow up surgery recs if any new ones. Guarded prognosis. 06/13/21: Patient to back to OR today. BLood transfusion. Will send DIC panel and may need to given cryo if over 6 units of PRBC's given. Patient will likely need trach and peg as we need to address nutrition. Chest tube placed, large bore now. Patient now with right sided effusion. Hemothorax???. Will continue to monitor output. Needs picc line as femoral should come out soon. Continue pressors. Continue sedation for pain control and comfort. Guarded prognosis. Surgery comfortable with neck and current situation so they have not request transfer. 1. Placed right femoral central line. pressors can run through this. 2. Repeat chemistry stat given bicarb of 8 and blood sugar of greater than 600. Ordering FSBS now. Earlier bicarb was 25. If accurate will need bicarb drip and vasopressin but not sure as pH on blood gas was normal done around the same time. 3. Coagulopathy is improving. INR down to 4.55 and PTT and pT improving. Will continue to give FFP. Ordered more vitamin K. H/H is stable but patient is oozing from neck and mouth. 4. Vasopressor for blood pressure. Need to keep map 65 and greater 5. Lujan is needed for accurate I/O 6. Surgery called by IMS about current CT situation. They state they will reassess in the am. I have reviewed the images myself. If I can position the patient safely without compromising the airway after adequate sedation, may consider placing chest tube now as INR is better and FFP is hanging. Patient is morbidly obese so shits could move the ET tube so if not safe, will wait until surgery comes in the morning. 7. Would not attempt to pass OG or NG tube given current situation in neck 8. Will discuss with surgery tomorrow but I feel this patient should be tra nsferred to a tertiary care facility with ENT as we do not have that service here. CCT 31 minutes. Subjective Date of service: 06/17/21 Interval history: No acute events. Pulm status stable. CT chest shows extensive sub q emphysema. Persistent PTx on right. Small bilateral pleural effusions. Neck shows significant narrowing of upper airway. Sedated on the vent but minimal settings Objective Vital Signs - 12hr 06/17/21 06/17/21 06/17/21 00:31 00:45 01:01 Temperature Pulse Rate 68 50 L 51 L Pulse Rate [ From Monitor] Respiratory 17 Rate Blood Pressure 144/80 128/60 128/60 O2 Sat by Pulse 100 100 100 Oximetry 06/17/21 06/17/21 06/17/21 01:15 01:31 01:45 Temperature Pulse Rate 45 L 45 L 39 L Pulse Rate [ From Monitor] Respiratory 22 22 22 Rate Blood Pressure 128/60 128/60 128/60 O2 Sat by Pulse 100 99 100 Oximetry 06/17/21 06/17/21 06/17/21 02:01 02:15 02:31 Temperature Pulse Rate 50 L 47 L 56 L Pulse Rate [ From Monitor] Respiratory 22 Rate Blood Pressure 128/60 128/60 153/58 O2 Sat by Pulse 100 99 99 Oximetry 06/17/21 06/17/21 06/17/21 02:45 03:01 03:15 Temperature Pulse Rate 47 L 44 L 46 L Pulse Rate [ From Monitor] Respiratory 22 Rate Blood Pressure 153/58 153/61 153/61 O2 Sat by Pulse 100 99 99 Oximetry 06/17/21 06/17/21 06/17/21 03:23 03:31 03:45 Temperature 99.0 F Pulse Rate 46 L 40 L Pulse Rate [ From Monitor] Respiratory 22 Rate Blood Pressure 153/61 153/61 O2 Sat by Pulse 100 100 Oximetry 06/17/21 06/17/21 06/17/21 03:50 04:00 04:01 Temperature Pulse Rate 43 L 47 L 49 L Pulse Rate [ 49 L From Monitor] Respiratory Rate Blood Pressure 152/62 153/61 O2 Sat by Pulse 100 100 100 Oximetry 06/17/21 06/17/21 06/17/21 04:15 04:31 04:45 Temperature Pulse Rate 42 L 50 L 44 L Pulse Rate [ From Monitor] Respiratory 22 Rate Blood Pressure 153/61 153/61 153/61 O2 Sat by Pulse 100 100 100 Oximetry 06/17/21 06/17/21 06/17/21 05:01 05:15 05:29 Temperature Pulse Rate 49 L 46 L 40 L Pulse Rate [ From Monitor] Respiratory 22 Rate Blood Pressure 153/61 153/61 178/78 O2 Sat by Pulse 100 100 Oximetry 06/17/21 06/17/21 06/17/21 05:30 05:45 06:00 Temperature Pulse Rate 46 L 56 L 58 L Pulse Rate [ From Monitor] Respiratory 22 Rate Blood Pressure 159/69 159/69 132/51 O2 Sat by Pulse 100 100 100 Oximetry 06/17/21 06/17/21 06/17/21 06:15 06:31 06:45 Temperature Pulse Rate 79 81 77 Pulse Rate [ From Monitor] Respiratory 22 20 17 Rate Blood Pressure 132/51 132/51 132/51 O2 Sat by Pulse 100 100 93 Oximetry 06/17/21 06/17/21 06/17/21 07:01 07:15 07:31 Temperature Pulse Rate 71 67 65 Pulse Rate [ From Monitor] Respiratory 22 21 22 Rate Blood Pressure 132/51 132/51 132/51 O2 Sat by Pulse 100 100 100 Oximetry 06/17/21 06/17/21 06/17/21 07:45 08:00 08:01 Temperature 97.7 F Pulse Rate 66 71 78 Pulse Rate [ 49 L From Monitor] Respiratory 18 21 13 Rate Blood Pressure 132/51 132/51 O2 Sat by Pulse 96 100 100 Oximetry 06/17/21 06/17/21 06/17/21 08:15 08:31 08:45 Temperature Pulse Rate 50 L 70 53 L Pulse Rate [ From Monitor] Respiratory 21 29 H 23 Rate Blood Pressure 133/53 132/51 132/51 O2 Sat by Pulse 99 100 98 Oximetry 06/17/21 06/17/21 06/17/21 09:00 09:15 09:31 Temperature Pulse Rate 55 L 50 L 54 L Pulse Rate [ From Monitor] Respiratory 21 22 22 Rate Blood Pressure 132/58 132/58 132/58 O2 Sat by Pulse 98 99 100 Oximetry 06/17/21 06/17/21 06/17/21 09:45 10:01 10:15 Temperature Pulse Rate 47 L 57 L 55 L Pulse Rate [ From Monitor] Respiratory 22 16 22 Rate Blood Pressure 132/58 132/58 132/58 O2 Sat by Pulse 100 100 99 Oximetry 06/17/21 06/17/21 06/17/21 10:31 10:45 11:01 Temperature Pulse Rate 56 L 51 L 49 L Pulse Rate [ From Monitor] Respiratory 21 16 20 Rate Blood Pressure 132/58 132/58 132/58 O2 Sat by Pulse 99 95 96 Oximetry 06/17/21 11:15 Temperature Pulse Rate 52 L Pulse Rate [ From Monitor] Respiratory 16 Rate Blood Pressure 132/58 O2 Sat by Pulse 98 Oximetry Constitutional: alert, appears uncomfortable Eyes: non-icteric ENT: other (patient with blood oozing from mouth but not able to open it voluntarily) Neck: other (covered in dressing, ET tube is anterior but I am not moving secondary to instability) Ascultation: Bilateral: clear Percussion: Bilateral: not dull Cardiovascular: regular rate and rhythm Gastrointestinal: normoactive bowel sounds, soft Extremities: no edema Neurologic: normal mental status CBC and BMP: 06/17/21 05:30 06/17/21 05:30 ABG, PT/INR, D-dimer: ABG ABG pH 7.479 pH Units (7.350-7.450) H 06/17/21 04:50 POC ABG pCO2 25.6 mmHg (32.0-48.0) L 06/13/21 04:31 ABG pCO2 31.1 mm Hg 06/17/21 04:50 POC ABG pO2 138.8 mmHg (83-108) H 06/13/21 04:31 ABG pO2 143.1 mm Hg (80.0-90.0) H 06/17/21 04:50 POC ABG HCO3 21.4 06/13/21 04:31 ABG O2 Saturation 98.9 % (95.0-99.0) 06/17/21 04:50 PT/INR, D-dimer PT 17.6 Sec. (12.2-14.9) H 06/13/21 Unknown INR 1.31 (0.87-1.13) H 06/13/21 Unknown D-Dimer 1244.63 ng/mlDDU (0-234) H 06/13/21 Unknown Abnormal lab findings: Abnormal Labs 06/11/21 06/11/21 06/11/21 15:23 15:23 19:20 WBC 12.0 H RBC Hgb Hct MCV 72 L MCH 21 L RDW 17.5 H Plt Count Lymph % (Auto) 12.9 L [place] % (Auto) 8.6 H [place] # (Auto) 1.0 H Seg Neutrophils % 77.4 H Seg Neuts % (Manual) Lymphocytes % (Manual) Monocytes % (Manual) Seg Neutrophils # 9.3 H Seg Neutrophils # Man Lymphocytes # (Manual) Monocytes # (Manual) PT INR APTT Fibrinogen D-Dimer ABG pH POC ABG pCO2 POC ABG pO2 ABG pO2 ABG HCO3 ABG O2 Saturation ABG Base Excess ABG Hemoglobin ABG Oxyhemoglobin Oxyhemoglobin Sodium Potassium Chloride Carbon Dioxide BUN Creatinine Glucose 144 H POC Glucose Lactic Acid Calcium Phosphorus AST ALT Alkaline Phosphatase C-Reactive Protein Total Protein Albumin Triglycerides Ur Specific [place] Urine Creatinine Crossmatch See Detail 06/11/21 06/11/21 06/11/21 19:29 19:29 23:21 WBC 15.8 H RBC Hgb 9.4 L Hct MCV 72 L MCH 22 L RDW 17.4 H Plt Count Lymph % (Auto) 9.2 L [place] % (Auto) [place] # (Auto) Seg Neutrophils % 89.0 H Seg Neuts % (Manual) Lymphocytes % (Manual) Monocytes % (Manual) Seg Neutrophils # 14.0 H Seg Neutrophils # Man Lymphocytes # (Manual) Monocytes # (Manual) PT 72.9 H INR 8.18 H* APTT 71.7 H* Fibrinogen D-Dimer ABG pH POC ABG pCO2 POC ABG pO2 ABG pO2 ABG HCO3 ABG O2 Saturation ABG Base Excess ABG Hemoglobin ABG Oxyhemoglobin Oxyhemoglobin Sodium 149 H D Potassium Chloride 124.3 H Carbon Dioxide 8 L* D BUN Creatinine 0.3 L Glucose 628 H* POC Glucose Lactic Acid Calcium 2.4 L* D Phosphorus AST ALT < 5 L Alkaline Phosphatase 19 L C-Reactive Protein Total Protein 1.6 L D Albumin 0.8 L Triglycerides Ur Specific [place] Urine Creatinine Crossmatch 06/11/21 06/11/21 06/11/21 23:21 23:22 23:42 WBC RBC Hgb Hct MCV MCH 27 L RDW 22.2 H Plt Count 131 L Lymph % (Auto) [place] % (Auto) [place] # (Auto) Seg Neutrophils % Seg Neuts % (Manual) Lymphocytes % (Manual) Monocytes % (Manual) Seg Neutrophils # Seg Neutrophils # Man Lymphocytes # (Manual) Monocytes # (Manual) PT 46.3 H INR 4.55 H APTT 54.8 H Fibrinogen D-Dimer ABG pH POC ABG pCO2 POC ABG pO2 325.9 H ABG pO2 ABG HCO3 ABG O2 Saturation ABG Base Excess ABG Hemoglobin 8.0 L ABG Oxyhemoglobin 99.0 H Oxyhemoglobin Sodium Potassium Chloride Carbon Dioxide BUN Creatinine Glucose POC Glucose Lactic Acid Calcium Phosphorus AST ALT Alkaline Phosphatase C-Reactive Protein Total Protein Albumin Triglycerides Ur Specific [place] Urine Creatinine Crossmatch 06/12/21 06/12/21 06/12/21 01:45 01:45 01:45 WBC 21.6 H RBC 3.04 L Hgb 6.7 L D Hct 22.4 L D MCV 74 L MCH 22 L RDW 18.9 H Plt Count Lymph % (Auto) [place] % (Auto) [place] # (Auto) Seg Neutrophils % Seg Neuts % (Manual) 76.0 H Lymphocytes % (Manual) 2.0 L Monocytes % (Manual) 8.0 H Seg Neutrophils # Seg Neutrophils # Man 16.4 H Lymphocytes # (Manual) 0.4 L Monocytes # (Manual) 1.7 H PT 25.4 H INR 2.10 H APTT Fibrinogen D-Dimer ABG pH POC ABG pCO2 POC ABG pO2 ABG pO2 ABG HCO3 ABG O2 Saturation ABG Base Excess ABG Hemoglobin ABG Oxyhemoglobin Oxyhemoglobin Sodium Potassium 5.6 H D Chloride Carbon Dioxide 20 L D BUN Creatinine Glucose 368 H POC Glucose Lactic Acid Calcium 7.1 L D Phosphorus AST ALT Alkaline Phosphatase C-Reactive Protein Total Protein 5.3 L D Albumin 3.1 L Triglycerides Ur Specific [place] Urine Creatinine Crossmatch 06/12/21 06/12/21 06/12/21 02:05 04:41 11:05 WBC 14.6 H RBC 3.52 L Hgb 8.5 L Hct 27.7 L MCV MCH 24 L RDW 20.9 H Plt Count Lymph % (Auto) [place] % (Auto) [place] # (Auto) Seg Neutrophils % Seg Neuts % (Manual) Lymphocytes % (Manual) Monocytes % (Manual) Seg Neutrophils # Seg Neutrophils # Man Lymphocytes # (Manual) Monocytes # (Manual) PT INR APTT Fibrinogen D-Dimer ABG pH POC ABG pCO2 POC ABG pO2 224.6 H ABG pO2 ABG HCO3 ABG O2 Saturation ABG Base Excess ABG Hemoglobin 7.3 L ABG Oxyhemoglobin 98.7 H Oxyhemoglobin Sodium Potassium Chloride Carbon Dioxide BUN Creatinine Glucose POC Glucose 308 H Lactic Acid Calcium Phosphorus AST ALT Alkaline Phosphatase C-Reactive Protein Total Protein Albumin Triglycerides Ur Specific [place] Urine Creatinine Crossmatch 06/12/21 06/12/21 06/12/21 11:05 11:05 12:18 WBC RBC Hgb Hct MCV MCH RDW Plt Count Lymph % (Auto) [place] % (Auto) [place] # (Auto) Seg Neutrophils % Seg Neuts % (Manual) Lymphocytes % (Manual) Monocytes % (Manual) Seg Neutrophils # Seg Neutrophils # Man Lymphocytes # (Manual) Monocytes # (Manual) PT 16.8 H INR 1.23 H APTT Fibrinogen D-Dimer ABG pH POC ABG pCO2 POC ABG pO2 ABG pO2 ABG HCO3 ABG O2 Saturation ABG Base Excess ABG Hemoglobin ABG Oxyhemoglobin Oxyhemoglobin Sodium Potassium Chloride Carbon Dioxide BUN 24 H Creatinine Glucose 324 H POC Glucose 281 H Lactic Acid Calcium 7.5 L Phosphorus AST 70 H ALT 57 H Alkaline Phosphatase C-Reactive Protein Total Protein 6.0 L Albumin 3.6 L Triglycerides Ur Specific [place] Urine Creatinine Crossmatch 06/12/21 06/12/21 06/12/21 17:00 17:00 17:00 WBC RBC Hgb 7.5 L Hct 24.0 L MCV MCH RDW Plt Count Lymph % (Auto) [place] % (Auto) [place] # (Auto) Seg Neutrophils % Seg Neuts % (Manual) Lymphocytes % (Manual) Monocytes % (Manual) Seg Neutrophils # Seg Neutrophils # Man Lymphocytes # (Manual) Monocytes # (Manual) PT 16.0 H INR 1.16 H APTT Fibrinogen D-Dimer ABG pH POC ABG pCO2 POC ABG pO2 ABG pO2 ABG HCO3 ABG O2 Saturation ABG Base Excess ABG Hemoglobin ABG Oxyhemoglobin Oxyhemoglobin Sodium Potassium Chloride Carbon Dioxide BUN Creatinine Glucose POC Glucose Lactic Acid Calcium Phosphorus AST ALT Alkaline Phosphatase C-Reactive Protein Total Protein Albumin Triglycerides Ur Specific [place] 1.035 H Urine Creatinine Crossmatch 06/12/21 06/12/21 06/12/21 18:06 23:00 23:05 WBC RBC Hgb 7.6 L Hct 23.5 L MCV MCH RDW Plt Count Lymph % (Auto) [place] % (Auto) [place] # (Auto) Seg Neutrophils % Seg Neuts % (Manual) Lymphocytes % (Manual) Monocytes % (Manual) Seg Neutrophils # Seg Neutrophils # Man Lymphocytes # (Manual) Monocytes # (Manual) PT INR APTT Fibrinogen D-Dimer ABG pH POC ABG pCO2 POC ABG pO2 ABG pO2 ABG HCO3 ABG O2 Saturation ABG Base Excess ABG Hemoglobin ABG Oxyhemoglobin Oxyhemoglobin Sodium Potassium Chloride Carbon Dioxide BUN Creatinine Glucose POC Glucose 257 H 300 H Lactic Acid Calcium Phosphorus AST ALT Alkaline Phosphatase C-Reactive Protein Total Protein Albumin Triglycerides Ur Specific [place] Urine Creatinine Crossmatch 06/13/21 06/13/21 06/13/21 04:31 05:19 07:30 WBC RBC Hgb 6.8 L Hct 21.7 L MCV MCH RDW Plt Count Lymph % (Auto) [place] % (Auto) [place] # (Auto) Seg Neutrophils % Seg Neuts % (Manual) Lymphocytes % (Manual) Monocytes % (Manual) Seg Neutrophils # Seg Neutrophils # Man Lymphocytes # (Manual) Monocytes # (Manual) PT INR APTT Fibrinogen D-Dimer ABG pH 7.541 H POC ABG pCO2 25.6 L POC ABG pO2 138.8 H ABG pO2 ABG HCO3 ABG O2 Saturation ABG Base Excess ABG Hemoglobin 7.3 L ABG Oxyhemoglobin 98.1 H Oxyhemoglobin Sodium Potassium Chloride Carbon Dioxide BUN Creatinine Glucose POC Glucose 286 H Lactic Acid Calcium Phosphorus AST ALT Alkaline Phosphatase C-Reactive Protein Total Protein Albumin Triglycerides Ur Specific [place] Urine Creatinine Crossmatch 06/13/21 06/13/21 06/13/21 07:30 12:04 14:50 WBC RBC Hgb Hct MCV MCH RDW Plt Count Lymph % (Auto) [place] % (Auto) [place] # (Auto) Seg Neutrophils % Seg Neuts % (Manual) Lymphocytes % (Manual) Monocytes % (Manual) Seg Neutrophils # Seg Neutrophils # Man Lymphocytes # (Manual) Monocytes # (Manual) PT INR APTT Fibrinogen D-Dimer ABG pH 7.039 L* 7.182 L* POC ABG pCO2 POC ABG pO2 ABG pO2 63.1 L ABG HCO3 17.4 L ABG O2 Saturation 73.4 L ABG Base Excess -12.6 L -7.1 L ABG Hemoglobin 7.7 L 6.9 L ABG Oxyhemoglobin Oxyhemoglobin 71.8 L 93.5 L Sodium Potassium Chloride 108.9 H Carbon Dioxide BUN 28 H Creatinine Glucose 293 H POC Glucose Lactic Acid Calcium 7.2 L Phosphorus AST 106 H ALT 92 H Alkaline Phosphatase C-Reactive Protein Total Protein 5.6 L Albumin 3.3 L Triglycerides Ur Specific [place] Urine Creatinine Crossmatch 06/13/21 06/13/21 06/13/21 14:54 15:45 17:34 WBC RBC Hgb Hct MCV MCH RDW Plt Count Lymph % (Auto) [place] % (Auto) [place] # (Auto) Seg Neutrophils % Seg Neuts % (Manual) Lymphocytes % (Manual) Monocytes % (Manual) Seg Neutrophils # Seg Neutrophils # Man Lymphocytes # (Manual) Monocytes # (Manual) PT INR APTT Fibrinogen D-Dimer ABG pH POC ABG pCO2 POC ABG pO2 ABG pO2 178.4 H ABG HCO3 ABG O2 Saturation 99.1 H ABG Base Excess ABG Hemoglobin 8.0 L ABG Oxyhemoglobin Oxyhemoglobin Sodium Potassium Chloride 107.3 H Carbon Dioxide 19 L BUN 33 H Creatinine 1.5 H Glucose 379 H POC Glucose Lactic Acid 5.30 H* Calcium 6.8 L Phosphorus AST ALT Alkaline Phosphatase C-Reactive Protein Total Protein Albumin Triglycerides Ur Specific [place] Urine Creatinine Crossmatch 06/13/21 06/13/21 06/13/21 17:40 23:29 Unknown WBC 22.5 H RBC 3.16 L Hgb 8.0 L Hct 26.0 L MCV MCH 26 L RDW 21.4 H Plt Count Lymph % (Auto) [place] % (Auto) [place] # (Auto) Seg Neutrophils % Seg Neuts % (Manual) 88.0 H Lymphocytes % (Manual) 4.0 L Monocytes % (Manual) Seg Neutrophils # Seg Neutrophils # Man 19.8 H Lymphocytes # (Manual) 0.9 L Monocytes # (Manual) 1.4 H PT INR APTT Fibrinogen D-Dimer ABG pH POC ABG pCO2 POC ABG pO2 ABG pO2 ABG HCO3 ABG O2 Saturation ABG Base Excess ABG Hemoglobin ABG Oxyhemoglobin Oxyhemoglobin Sodium Potassium Chloride Carbon Dioxide BUN Creatinine Glucose POC Glucose 294 H 288 H Lactic Acid Calcium Phosphorus AST ALT Alkaline Phosphatase C-Reactive Protein Total Protein Albumin Triglycerides Ur Specific [place] Urine Creatinine Crossmatch 06/13/21 06/14/21 06/14/21 Unknown 05:39 06:15 WBC RBC 2.93 L Hgb 7.2 L Hct 23.2 L MCV MCH 25 L RDW 21.2 H Plt Count Lymph % (Auto) [place] % (Auto) [place] # (Auto) Seg Neutrophils % Seg Neuts % (Manual) Lymphocytes % (Manual) Monocytes % (Manual) Seg Neutrophils # Seg Neutrophils # Man Lymphocytes # (Manual) Monocytes # (Manual) PT 17.6 H INR 1.31 H APTT Fibrinogen 546 H D-Dimer 1244.63 H ABG pH POC ABG pCO2 POC ABG pO2 ABG pO2 ABG HCO3 ABG O2 Saturation ABG Base Excess ABG Hemoglobin ABG Oxyhemoglobin Oxyhemoglobin Sodium Potassium Chloride Carbon Dioxide BUN Creatinine Glucose POC Glucose 246 H Lactic Acid Calcium Phosphorus AST ALT Alkaline Phosphatase C-Reactive Protein Total Protein Albumin Triglycerides Ur Specific [place] Urine Creatinine Crossmatch 06/14/21 06/14/21 06/14/21 06:15 06:15 09:13 WBC RBC Hgb Hct MCV MCH RDW Plt Count Lymph % (Auto) [place] % (Auto) [place] # (Auto) Seg Neutrophils % Seg Neuts % (Manual) Lymphocytes % (Manual) Monocytes % (Manual) Seg Neutrophils # Seg Neutrophils # Man Lymphocytes # (Manual) Monocytes # (Manual) PT INR APTT Fibrinogen D-Dimer ABG pH POC ABG pCO2 POC ABG pO2 ABG pO2 183.0 H ABG HCO3 ABG O2 Saturation 99.2 H ABG Base Excess ABG Hemoglobin 6.6 L ABG Oxyhemoglobin Oxyhemoglobin Sodium 147 H Potassium Chloride 112.5 H Carbon Dioxide 21 L BUN 36 H Creatinine 1.4 H Glucose 281 H POC Glucose Lactic Acid Calcium 6.9 L Phosphorus AST ALT Alkaline Phosphatase C-Reactive Protein Total Protein Albumin Triglycerides 189 H Ur Specific [place] Urine Creatinine Crossmatch 06/14/21 06/14/21 06/14/21 10:45 12:16 13:30 WBC RBC Hgb 7.1 L Hct 22.3 L MCV MCH RDW Plt Count Lymph % (Auto) [place] % (Auto) [place] # (Auto) Seg Neutrophils % Seg Neuts % (Manual) Lymphocytes % (Manual) Monocytes % (Manual) Seg Neutrophils # Seg Neutrophils # Man Lymphocytes # (Manual) Monocytes # (Manual) PT INR APTT Fibrinogen D-Dimer ABG pH 7.205 L POC ABG pCO2 POC ABG pO2 ABG pO2 261.3 H ABG HCO3 ABG O2 Saturation 99.4 H ABG Base Excess -7.2 L ABG Hemoglobin 7.6 L ABG Oxyhemoglobin Oxyhemoglobin Sodium Potassium Chloride Carbon Dioxide BUN Creatinine Glucose POC Glucose 174 H Lactic Acid Calcium Phosphorus AST ALT Alkaline Phosphatase C-Reactive Protein Total Protein Albumin Triglycerides Ur Specific [place] Urine Creatinine Crossmatch 06/14/21 06/14/21 06/15/21 17:40 18:43 00:06 WBC RBC Hgb Hct MCV MCH RDW Plt Count Lymph % (Auto) [place] % (Auto) [place] # (Auto) Seg Neutrophils % Seg Neuts % (Manual) Lymphocytes % (Manual) Monocytes % (Manual) Seg Neutrophils # Seg Neutrophils # Man Lymphocytes # (Manual) Monocytes # (Manual) PT INR APTT Fibrinogen D-Dimer ABG pH 7.292 L POC ABG pCO2 POC ABG pO2 ABG pO2 78.8 L ABG HCO3 ABG O2 Saturation ABG Base Excess -5.0 L ABG Hemoglobin 9.1 L ABG Oxyhemoglobin Oxyhemoglobin 93.7 L Sodium Potassium Chloride Carbon Dioxide BUN Creatinine Glucose POC Glucose 182 H 144 H Lactic Acid Calcium Phosphorus AST ALT Alkaline Phosphatase C-Reactive Protein Total Protein Albumin Triglycerides Ur Specific [place] Urine Creatinine Crossmatch 06/15/21 06/15/21 06/15/21 03:55 03:56 10:40 WBC RBC Hgb 8.4 L Hct 25.8 L MCV MCH RDW Plt Count Lymph % (Auto) [place] % (Auto) [place] # (Auto) Seg Neutrophils % Seg Neuts % (Manual) Lymphocytes % (Manual) Monocytes % (Manual) Seg Neutrophils # Seg Neutrophils # Man Lymphocytes # (Manual) Monocytes # (Manual) PT INR APTT Fibrinogen D-Dimer ABG pH POC ABG pCO2 POC ABG pO2 ABG pO2 ABG HCO3 ABG O2 Saturation ABG Base Excess ABG Hemoglobin ABG Oxyhemoglobin Oxyhemoglobin Sodium 147 H Potassium Chloride 112.2 H Carbon Dioxide 21 L BUN 47 H Creatinine 1.9 H Glucose 272 H POC Glucose Lactic Acid Calcium 7.3 L Phosphorus AST 64 H ALT 106 H Alkaline Phosphatase C-Reactive Protein Total Protein 5.1 L Albumin 2.9 L Triglycerides Ur Specific [place] Urine Creatinine 81.1 H Crossmatch 06/15/21 06/15/21 06/15/21 11:46 17:16 23:17 WBC RBC Hgb Hct MCV MCH RDW Plt Count Lymph % (Auto) [place] % (Auto) [place] # (Auto) Seg Neutrophils % Seg Neuts % (Manual) Lymphocytes % (Manual) Monocytes % (Manual) Seg Neutrophils # Seg Neutrophils # Man Lymphocytes # (Manual) Monocytes # (Manual) PT INR APTT Fibrinogen D-Dimer ABG pH POC ABG pCO2 POC ABG pO2 ABG pO2 ABG HCO3 ABG O2 Saturation ABG Base Excess ABG Hemoglobin ABG Oxyhemoglobin Oxyhemoglobin Sodium Potassium Chloride Carbon Dioxide BUN Creatinine Glucose POC Glucose 271 H 268 H 264 H Lactic Acid Calcium Phosphorus AST ALT Alkaline Phosphatase C-Reactive Protein Total Protein Albumin Triglycerides Ur Specific [place] Urine Creatinine Crossmatch 06/15/21 06/15/21 06/16/21 Unknown Unknown 04:32 WBC RBC 3.21 L 3.16 L Hgb 8.4 L 8.2 L Hct 26.1 L 25.4 L MCV MCH 26 L 26 L RDW 21.3 H 21.2 H Plt Count 105 L 118 L Lymph % (Auto) [place] % (Auto) [place] # (Auto) Seg Neutrophils % Seg Neuts % (Manual) Lymphocytes % (Manual) Monocytes % (Manual) Seg Neutrophils # Seg Neutrophils # Man Lymphocytes # (Manual) Monocytes # (Manual) PT INR APTT Fibrinogen D-Dimer ABG pH 7.465 H POC ABG pCO2 POC ABG pO2 ABG pO2 114.1 H ABG HCO3 ABG O2 Saturation ABG Base Excess ABG Hemoglobin 8.4 L ABG Oxyhemoglobin Oxyhemoglobin Sodium Potassium Chloride Carbon Dioxide BUN Creatinine Glucose POC Glucose Lactic Acid Calcium Phosphorus AST ALT Alkaline Phosphatase C-Reactive Protein Total Protein Albumin Triglycerides Ur Specific [place] Urine Creatinine Crossmatch 06/16/21 06/16/21 06/16/21 04:32 04:32 05:08 WBC RBC Hgb Hct MCV MCH RDW Plt Count Lymph % (Auto) [place] % (Auto) [place] # (Auto) Seg Neutrophils % Seg Neuts % (Manual) Lymphocytes % (Manual) Monocytes % (Manual) Seg Neutrophils # Seg Neutrophils # Man Lymphocytes # (Manual) Monocytes # (Manual) PT INR APTT Fibrinogen D-Dimer ABG pH POC ABG pCO2 POC ABG pO2 ABG pO2 ABG HCO3 ABG O2 Saturation ABG Base Excess ABG Hemoglobin ABG Oxyhemoglobin Oxyhemoglobin Sodium 148 H Potassium 3.3 L Chloride 115.1 H Carbon Dioxide 21 L BUN 54 H Creatinine 1.6 H Glucose 367 H POC Glucose 356 H Lactic Acid Calcium 7.4 L Phosphorus AST ALT Alkaline Phosphatase C-Reactive Protein 3.30 H Total Protein Albumin Triglycerides Ur Specific [place] Urine Creatinine Crossmatch 06/16/21 06/16/21 06/16/21 05:30 11:46 17:03 WBC RBC Hgb Hct MCV MCH RDW Plt Count Lymph % (Auto) [place] % (Auto) [place] # (Auto) Seg Neutrophils % Seg Neuts % (Manual) Lymphocytes % (Manual) Monocytes % (Manual) Seg Neutrophils # Seg Neutrophils # Man Lymphocytes # (Manual) Monocytes # (Manual) PT INR APTT Fibrinogen D-Dimer ABG pH 7.475 H POC ABG pCO2 POC ABG pO2 ABG pO2 171.8 H ABG HCO3 ABG O2 Saturation 99.1 H ABG Base Excess ABG Hemoglobin 11.7 L ABG Oxyhemoglobin Oxyhemoglobin Sodium Potassium Chloride Carbon Dioxide BUN Creatinine Glucose POC Glucose 309 H 345 H Lactic Acid Calcium Phosphorus AST ALT Alkaline Phosphatase C-Reactive Protein Total Protein Albumin Triglycerides Ur Specific [place] Urine Creatinine Crossmatch 06/16/21 06/16/21 06/17/21 20:18 23:22 04:50 WBC RBC Hgb Hct MCV MCH RDW Plt Count Lymph % (Auto) [place] % (Auto) [place] # (Auto) Seg Neutrophils % Seg Neuts % (Manual) Lymphocytes % (Manual) Monocytes % (Manual) Seg Neutrophils # Seg Neutrophils # Man Lymphocytes # (Manual) Monocytes # (Manual) PT INR APTT Fibrinogen D-Dimer ABG pH 7.479 H POC ABG pCO2 POC ABG pO2 ABG pO2 143.1 H ABG HCO3 ABG O2 Saturation ABG Base Excess ABG Hemoglobin 10.0 L ABG Oxyhemoglobin Oxyhemoglobin Sodium Potassium Chloride Carbon Dioxide BUN Creatinine Glucose POC Glucose 325 H 315 H Lactic Acid Calcium Phosphorus AST ALT Alkaline Phosphatase C-Reactive Protein Total Protein Albumin Triglycerides Ur Specific [place] Urine Creatinine Crossmatch 06/17/21 06/17/21 06/17/21 05:18 05:30 05:30 WBC RBC 3.17 L Hgb 8.2 L Hct 25.5 L MCV MCH 26 L RDW 21.2 H Plt Count 128 L Lymph % (Auto) [place] % (Auto) [place] # (Auto) Seg Neutrophils % Seg Neuts % (Manual) Lymphocytes % (Manual) Monocytes % (Manual) Seg Neutrophils # Seg Neutrophils # Man Lymphocytes # (Manual) Monocytes # (Manual) PT INR APTT Fibrinogen D-Dimer ABG pH POC ABG pCO2 POC ABG pO2 ABG pO2 ABG HCO3 ABG O2 Saturation ABG Base Excess ABG Hemoglobin ABG Oxyhemoglobin Oxyhemoglobin Sodium 148 H Potassium Chloride 113.7 H Carbon Dioxide 20 L BUN 57 H Creatinine 1.4 H Glucose 351 H POC Glucose 324 H Lactic Acid Calcium 8.0 L Phosphorus 2.30 L AST ALT Alkaline Phosphatase C-Reactive Protein Total Protein Albumin Triglycerides Ur Specific [place] Urine Creatinine Crossmatch 06/17/21 11:49 WBC RBC Hgb Hct MCV MCH RDW Plt Count Lymph % (Auto) [place] % (Auto) [place] # (Auto) Seg Neutrophils % Seg Neuts % (Manual) Lymphocytes % (Manual) Monocytes % (Manual) Seg Neutrophils # Seg Neutrophils # Man Lymphocytes # (Manual) Monocytes # (Manual) PT INR APTT Fibrinogen D-Dimer ABG pH POC ABG pCO2 POC ABG pO2 ABG pO2 ABG HCO3 ABG O2 Saturation ABG Base Excess ABG Hemoglobin ABG Oxyhemoglobin Oxyhemoglobin Sodium Potassium Chloride Carbon Dioxide BUN Creatinine Glucose POC Glucose 305 H Lactic Acid Calcium Phosphorus AST ALT Alkaline Phosphatase C-Reactive Protein Total Protein Albumin Triglycerides Ur Specific [place] Urine Creatinine Crossmatch
--- NOTE | 2021-06-17 13:56 | Progress Note ---
Assessment and Plan Cultures: 06/12/2021 blood cultures: no growth A/P: 76-year-old female with diabetes, hypertension, gout was admitted to the hospital on 06/11/2021 with swelling of the submandibular region, tongue and difficulty breathing, labs also revealed severe coagulopathy due to Coumadin. 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 Shock resolved. #Acute respiratory failure: on the vent #Right-sided pneumothorax: s/p chest tube. #Diabetes mellitus, uncontrolled #Coagulopathy: Secondary to Coumadin. #Acute blood loss anemia Recs: -continue IV Zosyn 4.5 gm q6 hrs -guarded prognosis -awaiting transfer to [facility] for ENT joleneal Silvana Barros MD, FACP, [facility] O: [phone] F: [phone] Subjective Date of service: 06/17/21 Interval history: Calm, sedated, remains on the vent, off pressors. Afebrile. D/w RN. Objective - Exam Narrative Exam: Physical Exam: Constitutional: sedated, intubated, on the vent Head, Ears, Nose: Normocephalic, atraumatic. External ears, nose normal Eyes: Conjunctivae/corneas clear. No icterus. No ptosis. Oral: intubated Cardiovascular: S1, S2 + Respiratory: AE reduced, right-sided chest tube. SubQ emphysema + GI: Soft, bowel sounds + Musculoskeletal: No pedal edema, no cyanosis. Skin: No rash or abscess Hem/Lymphatic: No palpable cervical or supraclavicular nodes. No lymphangitis Psych: no agitation Neurological: sedated, intubated, on the vent, exam limited - Constitutional Vitals: Vital Signs Temp Pulse Resp BP Pulse Ox 97.6 F 56 L 22 137/64 100 06/17/21 12:00 06/17/21 13:31 06/17/21 13:31 06/17/21 13:31 06/17/21 13:31 Temperature -Last 24 Hours Temperature 97.6 F Temperature 97.7 F Temperature 99.0 F Temperature 98.1 F Temperature 99.0 F Temperature 97.4 F - Labs CBC & Chem 7: 06/17/21 05:30 06/17/21 05:30 Labs: Abnormal lab results 06/16/21 06/16/21 06/16/21 Range/Units 17:03 20:18 23:22 RBC (3.65-5.03) M/mm3 Hgb (10.1-14.3) gm/dl Hct (30.3-42.9) % MCH (28-32) pg RDW (13.2-15.2) % Plt Count (140-440) K/mm3 ABG pH (7.350-7.450) pH Units ABG pO2 (80.0-90.0) mm Hg ABG Hemoglobin (12.0-16.0) gm/dl Sodium (137-145) mmol/L Chloride (98-107) mmol/L Carbon Dioxide (22-30) mmol/L BUN (7-17) mg/dL Creatinine (0.6-1.2) mg/dL Glucose (65-100) mg/dL POC Glucose 345 H 325 H 315 H (70-105) mg/dL Calcium (8.4-10.2) mg/dL Phosphorus (2.5-4.5) mg/dL 06/17/21 06/17/21 06/17/21 Range/Units 04:50 05:18 05:30 RBC (3.65-5.03) M/mm3 Hgb (10.1-14.3) gm/dl Hct (30.3-42.9) % MCH (28-32) pg RDW (13.2-15.2) % Plt Count (140-440) K/mm3 ABG pH 7.479 H (7.350-7.450) pH Units ABG pO2 143.1 H (80.0-90.0) mm Hg ABG Hemoglobin 10.0 L (12.0-16.0) gm/dl Sodium 148 H (137-145) mmol/L Chloride 113.7 H (98-107) mmol/L Carbon Dioxide 20 L (22-30) mmol/L BUN 57 H (7-17) mg/dL Creatinine 1.4 H (0.6-1.2) mg/dL Glucose 351 H (65-100) mg/dL POC Glucose 324 H (70-105) mg/dL Calcium 8.0 L (8.4-10.2) mg/dL Phosphorus 2.30 L (2.5-4.5) mg/dL 06/17/21 06/17/21 Range/Units 05:30 11:49 RBC 3.17 L (3.65-5.03) M/mm3 Hgb 8.2 L (10.1-14.3) gm/dl Hct 25.5 L (30.3-42.9) % MCH 26 L (28-32) pg RDW 21.2 H (13.2-15.2) % Plt Count 128 L (140-440) K/mm3 ABG pH (7.350-7.450) pH Units ABG pO2 (80.0-90.0) mm Hg ABG Hemoglobin (12.0-16.0) gm/dl Sodium (137-145) mmol/L Chloride (98-107) mmol/L Carbon Dioxide (22-30) mmol/L BUN (7-17) mg/dL Creatinine (0.6-1.2) mg/dL Glucose (65-100) mg/dL POC Glucose 305 H (70-105) mg/dL Calcium (8.4-10.2) mg/dL Phosphorus (2.5-4.5) mg/dL
--- NOTE | 2021-06-17 16:25 | Event Note ---
Date: 06/17/21 Received a call back from [facility]. Spoke with the material handling technician Dr. Duckworth stating that they are unable to accept the patient into their CC unit since their ENT team is not accepting the patient. Per Dr. Duckworth, their ENT doctor stated that patient will most likely need an extensive intervention that they are currently not equipped to perform at [facility]. They recommended transferring the patient to a more specialized facility like [facility]. [facility] is aware. A transfer request to [facility] is already in process, awaiting a response. +CCT- 30min
[2021-06-17] MEDS ORDERED: TOTAL PARENTERAL NUTRITION 1,999.92 ML IV SCH (20:00)
[2021-06-17] MEDS ORDERED: INSULIN GLARGINE 100 UNITS/ML SUB-Q SCH (22:00)
[2021-06-18] MEDS: INSULIN LISPRO 100 UNIT/ML SUB-Q SCH ×4 (00:33→18:30)
[2021-06-18] MEDS: fentaNYL DRIP Premix 2,000 MCG/100 ML BAG IV SCH ×5 (02:58→21:39)
[2021-06-18 04:44] LABS: ABG Base Excess -2.1 mmol/L (-2.0-3.0); ABG HCO3 20.3 mmol/L (20.0-26.0); ABG Methemoglobin 0.5 % (0.0-1.5); ABG Oxygen Saturation 98.2 % (95.0-99.0); ABG PCO2 26.9 mm Hg; ABG PH 7.495 pH Units (7.350-7.450); ABG PO2 108.3 mm Hg (80.0-90.0)
[2021-06-18 05:09] LABS: Hematocrit 28.7 % (30.3-42.9); Hemoglobin 9.1 gm/dl (10.1-14.3); Mean Corpuscular HGB Conc 32 % (30-34); Mean Corpuscular Volume 81 fl (79-97); Platelet Count 151 K/mm3 (140-440); Red Blood Count 3.53 M/mm3 (3.65-5.03)
[2021-06-18 05:14] LABS: Red Cell Distribution Width 21.3 % (13.2-15.2)
[2021-06-18 05:22] LABS: Calcium 8.1 mg/dL (8.4-10.2)
[2021-06-18] MEDS: PIPERACILLIN/TAZOBACTAM 3.375 3.375 GM/50 ML BAG IV SCH ×4 (06:08→23:34)
[2021-06-18] MEDS: methylPREDNISolone Sod Succinate 125 MG/2 ML INJ IV SCH ×3 (06:08→21:39)
[2021-06-18] MEDS: hydrALAZINE 20 MG/1 ML INJ IV PRN ×2 (08:32→15:21)
--- NOTE | 2021-06-18 10:06 | Progress Note ---
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 06/18/21: [facility] has agreed to accept but no ICU beds available at this time. Spoke with Dr. Vasquez yesterday and Dr. Patricia spoke with ENT there. Spoke with RT this am and patient did have a leak when cuff let down and her tidal volumes dropped to below 100. Patient remains on abx and steriods. Will consider lightening sedation tomorrow and seeing how patient does if cuff leak persists. Dropped tidal volumes to 450. Continue PPN for now. 06/17/21: spoke with surgery and they feel transfer is reasonable. I have re ached out to [facility] and [facility] has spoken with someone from [facility]. Await to hear back from them. Continue supportive measures and adequate sedation for pain control. No PSV trials as of yet. Blood sugar control, increase lantus. Most likely secondary to steroids. Continue abx therapy. Guarded prognosis. 06/16/21: Renal function improved with fluids. IMS to give more fluids (LR) today which I agree with. FeNa is =0.7. Should be fluid responsive. Continue clinimix. Needs long acting insulin. Agree with lantus. Asked nursing to increase sedation now that we know that patient's mental status is stable. Picc today. Air leak test vs Neck CT on tomorrow. 06/15/21: Hopeful with worsening renal function ( likely from code on yesterday) that sedatives are just lingering from that. Still making good urine but output has fallen off. Will send urine sodium and urine cr to check Fena. Most likely this is prerenal. ordered renal ultrasound as well. Continue abx and steroids. Will start clinimix today. This should help with the free water piece. Will give another liter bolus of LR right now. Keep sedation off for now. Guarded prognosis. 06/14/21: Will discuss with surgery future plans. They have ordered steroids to help with inflammation and abx continue. All others appears stable and no acute evidence of bleeding at this time. Follow up surgery recs if any new ones. Guarded prognosis. 06/13/21: Patient to back to OR today. BLood transfusion. Will send DIC panel and may need to given cryo if over 6 units of PRBC's given. Patient will likely need trach and peg as we need to address nutrition. Chest tube placed, large bore now. Patient now with right sided effusion. Hemothorax???. Will continue to monitor output. Needs picc line as femoral should come out soon. Continue pressors. Continue sedation for pain control and comfort. Guarded prognosis. Surgery comfortable with neck and current situation so they have not request transfer. 1. Placed right femoral central line. pressors can run through this. 2. Repeat chemistry stat given bicarb of 8 and blood sugar of greater than 600. Ordering FSBS now. Earlier bicarb was 25. If accurate will need bicarb drip and vasopressin but not sure as pH on blood gas was normal done around the same time. 3. Coagulopathy is improving. INR down to 4.55 and PTT and pT improving. Will continue to give FFP. Ordered more vitamin K. H/H is stable but patient is oozing from neck and mouth. 4. Vasopressor for blood pressure. Need to keep map 65 and greater 5. Lujan is needed for accurate I/O 6. Surgery called by IMS about current CT situation. They state they will reassess in the am. I have reviewed the images myself. If I can position the patient safely without compromising the airway after adequate sedation, may consider placing chest tube now as INR is better and FFP is hanging. Patient is morbidly obese so shits could move the ET tube so if not safe, will wait until surgery comes in the morning. 7. Would not attempt to pass OG or NG tube given current situation in neck 8. Will discuss with surgery tomorrow but I feel this patient should be transferred to a tertiary care facility with ENT as we do not have that service here. CCT 31 minutes. Subjective Date of service: 06/18/21 Interval history: Remains intubated and sedated. Minimal support. Airleak persists. Objective Vital Signs - 12hr 06/17/21 06/17/21 06/17/21 22:15 22:31 22:45 Temperature Pulse Rate 50 L 64 58 L Pulse Rate [ From Monitor] Respiratory 22 Rate Blood Pressure 142/59 142/59 164/71 O2 Sat by Pulse 100 100 100 Oximetry 06/17/21 06/17/21 06/17/21 23:01 23:15 23:31 Temperature Pulse Rate 58 L 62 53 L Pulse Rate [ From Monitor] Respiratory 22 22 Rate Blood Pressure 164/71 164/71 164/71 O2 Sat by Pulse 100 100 100 Oximetry 06/17/21 06/17/21 06/18/21 23:42 23:45 00:00 Temperature 98.8 F Pulse Rate 55 L 55 L 59 L Pulse Rate [ 64 From Monitor] Respiratory 22 22 Rate Blood Pressure 169/65 164/71 148/66 O2 Sat by Pulse 100 100 Oximetry 06/18/21 06/18/21 06/18/21 00:15 00:31 00:45 Temperature Pulse Rate 59 L 60 63 Pulse Rate [ From Monitor] Respiratory 22 22 Rate Blood Pressure 148/66 148/66 148/66 O2 Sat by Pulse 100 100 100 Oximetry 06/18/21 06/18/21 06/18/21 01:01 01:15 01:31 Temperature Pulse Rate 59 L 61 62 Pulse Rate [ From Monitor] Respiratory 22 22 Rate Blood Pressure 148/66 148/66 148/66 O2 Sat by Pulse 100 100 100 Oximetry 06/18/21 06/18/21 06/18/21 01:45 02:01 02:15 Temperature Pulse Rate 62 60 58 L Pulse Rate [ From Monitor] Respiratory 22 23 Rate Blood Pressure 148/66 148/66 148/66 O2 Sat by Pulse 100 100 100 Oximetry 06/18/21 06/18/21 06/18/21 02:31 02:45 03:00 Temperature Pulse Rate 64 58 L 56 L Pulse Rate [ From Monitor] Respiratory 22 20 16 Rate Blood Pressure 148/66 148/66 158/75 O2 Sat by Pulse 100 100 100 Oximetry 06/18/21 06/18/21 06/18/21 03:15 03:30 03:46 Temperature Pulse Rate 53 L 56 L 56 L Pulse Rate [ From Monitor] Respiratory 22 17 22 Rate Blood Pressure 158/75 158/75 158/75 O2 Sat by Pulse 100 100 100 Oximetry 06/18/21 06/18/21 06/18/21 04:00 04:13 04:16 Temperature 98.3 F Pulse Rate 50 L 58 L 57 L Pulse Rate [ 64 From Monitor] Respiratory 22 16 22 Rate Blood Pressure 158/75 158/75 158/75 O2 Sat by Pulse 100 100 100 Oximetry 06/18/21 06/18/2106/18/22 04:30 04:46 05:00 Temperature Pulse Rate 59 L 54 L 54 L Pulse Rate [ From Monitor] Respiratory 22 Rate Blood Pressure 167/86 167/86 167/86 O2 Sat by Pulse 100 100 100 Oximetry 06/18/21 06/18/21 06/18/21 05:16 05:30 05:46 Temperature Pulse Rate 49 L 49 L 53 L Pulse Rate [ From Monitor] Respiratory 22 Rate Blood Pressure 167/86 167/86 167/86 O2 Sat by Pulse 100 100 100 Oximetry 06/18/21 06/18/21 06/18/21 06:00 06:16 06:30 Temperature Pulse Rate 55 L 49 L 53 L Pulse Rate [ From Monitor] Respiratory 22 18 17 Rate Blood Pressure 165/85 165/85 165/85 O2 Sat by Pulse 100 100 100 Oximetry 06/18/21 06/18/21 06/18/21 06:46 07:00 07:16 Temperature Pulse Rate 53 L 52 L 54 L Pulse Rate [ From Monitor] Respiratory 18 19 18 Rate Blood Pressure 165/85 165/85 165/85 O2 Sat by Pulse 100 100 100 Oximetry 06/18/21 06/18/21 06/18/21 07:30 07:35 07:46 Temperature Pulse Rate 55 L 54 L 54 L Pulse Rate [ From Monitor] Respiratory 18 18 Rate Blood Pressure 165/85 169/64 165/85 O2 Sat by Pulse 100 100 100 Oximetry 06/18/21 06/18/21 06/18/21 08:00 08:16 08:30 Temperature 98.2 F Pulse Rate 56 L 54 L 51 L Pulse Rate [ From Monitor] Respiratory 18 18 18 Rate Blood Pressure 165/85 165/85 165/85 O2 Sat by Pulse 100 100 100 Oximetry 06/18/21 06/18/21 06/18/21 08:32 08:46 09:00 Temperature Pulse Rate 57 L 60 61 Pulse Rate [ From Monitor] Respiratory 18 18 Rate Blood Pressure 175/70 165/85 143/70 O2 Sat by Pulse 100 100 Oximetry Constitutional: alert, appears uncomfortable Eyes: non-icteric ENT: other (patient with blood oozing from mouth but not able to open it voluntarily) Neck: other (covered in dressing, ET tube is anterior but I am not moving secondary to instability) Ascultation: Bilateral: clear Percussion: Bilateral: not dull Cardiovascular: regular rate and rhythm Gastrointestinal: normoactive bowel sounds, soft Extremities: no edema Neurologic: normal mental status CBC and BMP: 06/18/21 04:37 06/18/21 04:37 ABG, PT/INR, D-dimer: ABG ABG pH 7.495 pH Units (7.350-7.450) H 06/18/21 04:20 POC ABG pCO2 25.6 mmHg (32.0-48.0) L 06/13/21 04:31 ABG pCO2 26.9 mm Hg 06/18/21 04:20 POC ABG pO2 138.8 mmHg (83-108) H 06/13/21 04:31 ABG pO2 108.3 mm Hg (80.0-90.0) H 06/18/21 04:20 POC ABG HCO3 21.4 06/13/21 04:31 ABG O2 Saturation 98.2 % (95.0-99.0) 06/18/21 04:20 PT/INR, D-dimer PT 17.6 Sec. (12.2-14.9) H 06/13/21 Unknown INR 1.31 (0.87-1.13) H 06/13/21 Unknown D-Dimer 1244.63 ng/mlDDU (0-234) H 06/13/21 Unknown Abnormal lab findings: Abnormal Labs 06/11/21 06/11/21 06/11/21 15:23 15:23 19:20 WBC 12.0 H RBC Hgb Hct MCV 72 L MCH 21 L RDW 17.5 H Plt Count Lymph % (Auto) 12.9 L [place] % (Auto) 8.6 H [place] # (Auto) 1.0 H Seg Neutrophils % 77.4 H Seg Neuts % (Manual) Lymphocytes % (Manual) Monocytes % (Manual) Seg Neutrophils # 9.3 H Seg Neutrophils # Man Lymphocytes # (Manual) Monocytes # (Manual) PT INR APTT Fibrinogen D-Dimer ABG pH POC ABG pCO2 POC ABG pO2 ABG pO2 ABG HCO3 ABG O2 Saturation ABG Base Excess ABG Hemoglobin ABG Oxyhemoglobin Oxyhemoglobin Sodium Potassium Chloride Carbon Dioxide BUN Creatinine Glucose 144 H POC Glucose Lactic Acid Calcium Phosphorus AST ALT Alkaline Phosphatase C-Reactive Protein Total Protein Albumin Triglycerides Ur Specific [place] Urine Creatinine Crossmatch See Detail 06/11/21 06/11/21 06/11/21 19:29 19:29 23:21 WBC 15.8 H RBC Hgb 9.4 L Hct MCV 72 L MCH 22 L RDW 17.4 H Plt Count Lymph % (Auto) 9.2 L [place] % (Auto) [place] # (Auto) Seg Neutrophils % 89.0 H Seg Neuts % (Manual) Lymphocytes % (Manual) Monocytes % (Manual) Seg Neutrophils # 14.0 H Seg Neutrophils # Man Lymphocytes # (Manual) Monocytes # (Manual) PT 72.9 H INR 8.18 H* APTT 71.7 H* Fibrinogen D-Dimer ABG pH POC ABG pCO2 POC ABG pO2 ABG pO2 ABG HCO3 ABG O2 Saturation ABG Base Excess ABG Hemoglobin ABG Oxyhemoglobin Oxyhemoglobin Sodium 149 H D Potassium Chloride 124.3 H Carbon Dioxide 8 L* D BUN Creatinine 0.3 L Glucose 628 H* POC Glucose Lactic Acid Calcium 2.4 L* D Phosphorus AST ALT < 5 L Alkaline Phosphatase 19 L C-Reactive Protein Total Protein 1.6 L D Albumin 0.8 L Triglycerides Ur Specific [place] Urine Creatinine Crossmatch 06/11/21 06/11/21 06/11/21 23:21 23:22 23:42 WBC RBC Hgb Hct MCV MCH 27 L RDW 22.2 H Plt Count 131 L Lymph % (Auto) [place] % (Auto) [place] # (Auto) Seg Neutrophils % Seg Neuts % (Manual) Lymphocytes % (Manual) Monocytes % (Manual) Seg Neutrophils # Seg Neutrophils # Man Lymphocytes # (Manual) Monocytes # (Manual) PT 46.3 H INR 4.55 H APTT 54.8 H Fibrinogen D-Dimer ABG pH POC ABG pCO2 POC ABG pO2 325.9 H ABG pO2 ABG HCO3 ABG O2 Saturation ABG Base Excess ABG Hemoglobin 8.0 L ABG Oxyhemoglobin 99.0 H Oxyhemoglobin Sodium Potassium Chloride Carbon Dioxide BUN Creatinine Glucose POC Glucose Lactic Acid Calcium Phosphorus AST ALT Alkaline Phosphatase C-Reactive Protein Total Protein Albumin Triglycerides Ur Specific [place] Urine Creatinine Crossmatch 06/12/21 06/12/21 06/12/21 01:45 01:45 01:45 WBC 21.6 H RBC 3.04 L Hgb 6.7 L D Hct 22.4 L D MCV 74 L MCH 22 L RDW 18.9 H Plt Count Lymph % (Auto) [place] % (Auto) [place] # (Auto) Seg Neutrophils % Seg Neuts % (Manual) 76.0 H Lymphocytes % (Manual) 2.0 L Monocytes % (Manual) 8.0 H Seg Neutrophils # Seg Neutrophils # Man 16.4 H Lymphocytes # (Manual) 0.4 L Monocytes # (Manual) 1.7 H PT 25.4 H INR 2.10 H APTT Fibrinogen D-Dimer ABG pH POC ABG pCO2 POC ABG pO2 ABG pO2 ABG HCO3 ABG O2 Saturation ABG Base Excess ABG Hemoglobin ABG Oxyhemoglobin Oxyhemoglobin Sodium Potassium 5.6 H D Chloride Carbon Dioxide 20 L D BUN Creatinine Glucose 368 H POC Glucose Lactic Acid Calcium 7.1 L D Phosphorus AST ALT Alkaline Phosphatase C-Reactive Protein Total Protein 5.3 L D Albumin 3.1 L Triglycerides Ur Specific [place] Urine Creatinine Crossmatch 06/12/21 06/12/21 06/12/21 02:05 04:41 11:05 WBC 14.6 H RBC 3.52 L Hgb 8.5 L Hct 27.7 L MCV MCH 24 L RDW 20.9 H Plt Count Lymph % (Auto) [place] % (Auto) [place] # (Auto) Seg Neutrophils % Seg Neuts % (Manual) Lymphocytes % (Manual) Monocytes % (Manual) Seg Neutrophils # Seg Neutrophils # Man Lymphocytes # (Manual) Monocytes # (Manual) PT INR APTT Fibrinogen D-Dimer ABG pH POC ABG pCO2 POC ABG pO2 224.6 H ABG pO2 ABG HCO3 ABG O2 Saturation ABG Base Excess ABG Hemoglobin 7.3 L ABG Oxyhemoglobin 98.7 H Oxyhemoglobin Sodium Potassium Chloride Carbon Dioxide BUN Creatinine Glucose POC Glucose 308 H Lactic Acid Calcium Phosphorus AST ALT Alkaline Phosphatase C-Reactive Protein Total Protein Albumin Triglycerides Ur Specific [place] Urine Creatinine Crossmatch 06/12/21 06/12/21 06/12/21 11:05 11:05 12:18 WBC RBC Hgb Hct MCV MCH RDW Plt Count Lymph % (Auto) [place] % (Auto) [place] # (Auto) Seg Neutrophils % Seg Neuts % (Manual) Lymphocytes % (Manual) Monocytes % (Manual) Seg Neutrophils # Seg Neutrophils # Man Lymphocytes # (Manual) Monocytes # (Manual) PT 16.8 H INR 1.23 H APTT Fibrinogen D-Dimer ABG pH POC ABG pCO2 POC ABG pO2 ABG pO2 ABG HCO3 ABG O2 Saturation ABG Base Excess ABG Hemoglobin ABG Oxyhemoglobin Oxyhemoglobin Sodium Potassium Chloride Carbon Dioxide BUN 24 H Creatinine Glucose 324 H POC Glucose 281 H Lactic Acid Calcium 7.5 L Phosphorus AST 70 H ALT 57 H Alkaline Phosphatase C-Reactive Protein Total Protein 6.0 L Albumin 3.6 L Triglycerides Ur Specific [place] Urine Creatinine Crossmatch 06/12/21 06/12/21 06/12/21 17:00 17:00 17:00 WBC RBC Hgb 7.5 L Hct 24.0 L MCV MCH RDW Plt Count Lymph % (Auto) [place] % (Auto) [place] # (Auto) Seg Neutrophils % Seg Neuts % (Manual) Lymphocytes % (Manual) Monocytes % (Manual) Seg Neutrophils # Seg Neutrophils # Man Lymphocytes # (Manual) Monocytes # (Manual) PT 16.0 H INR 1.16 H APTT Fibrinogen D-Dimer ABG pH POC ABG pCO2 POC ABG pO2 ABG pO2 ABG HCO3 ABG O2 Saturation ABG Base Excess ABG Hemoglobin ABG Oxyhemoglobin Oxyhemoglobin Sodium Potassium Chloride Carbon Dioxide BUN Creatinine Glucose POC Glucose Lactic Acid Calcium Phosphorus AST ALT Alkaline Phosphatase C-Reactive Protein Total Protein Albumin Triglycerides Ur Specific [place] 1.035 H Urine Creatinine Crossmatch 06/12/21 06/12/21 06/12/21 18:06 23:00 23:05 WBC RBC Hgb 7.6 L Hct 23.5 L MCV MCH RDW Plt Count Lymph % (Auto) [place] % (Auto) [place] # (Auto) Seg Neutrophils % Seg Neuts % (Manual) Lymphocytes % (Manual) Monocytes % (Manual) Seg Neutrophils # Seg Neutrophils # Man Lymphocytes # (Manual) Monocytes # (Manual) PT INR APTT Fibrinogen D-Dimer ABG pH POC ABG pCO2 POC ABG pO2 ABG pO2 ABG HCO3 ABG O2 Saturation ABG Base Excess ABG Hemoglobin ABG Oxyhemoglobin Oxyhemoglobin Sodium Potassium Chloride Carbon Dioxide BUN Creatinine Glucose POC Glucose 257 H 300 H Lactic Acid Calcium Phosphorus AST ALT Alkaline Phosphatase C-Reactive Protein Total Protein Albumin Triglycerides Ur Specific [place] Urine Creatinine Crossmatch 06/13/21 06/13/21 06/13/21 04:31 05:19 07:30 WBC RBC Hgb 6.8 L Hct 21.7 L MCV MCH RDW Plt Count Lymph % (Auto) [place] % (Auto) [place] # (Auto) Seg Neutrophils % Seg Neuts % (Manual) Lymphocytes % (Manual) Monocytes % (Manual) Seg Neutrophils # Seg Neutrophils # Man Lymphocytes # (Manual) Monocytes # (Manual) PT INR APTT Fibrinogen D-Dimer ABG pH 7.541 H POC ABG pCO2 25.6 L POC ABG pO2 138.8 H ABG pO2 ABG HCO3 ABG O2 Saturation ABG Base Excess ABG Hemoglobin 7.3 L ABG Oxyhemoglobin 98.1 H Oxyhemoglobin Sodium Potassium Chloride Carbon Dioxide BUN Creatinine Glucose POC Glucose 286 H Lactic Acid Calcium Phosphorus AST ALT Alkaline Phosphatase C-Reactive Protein Total Protein Albumin Triglycerides Ur Specific [place] Urine Creatinine Crossmatch 06/13/21 06/13/21 06/13/21 07:30 12:04 14:50 WBC RBC Hgb Hct MCV MCH RDW Plt Count Lymph % (Auto) [place] % (Auto) [place] # (Auto) Seg Neutrophils % Seg Neuts % (Manual) Lymphocytes % (Manual) Monocytes % (Manual) Seg Neutrophils # Seg Neutrophils # Man Lymphocytes # (Manual) Monocytes # (Manual) PT INR APTT Fibrinogen D-Dimer ABG pH 7.039 L* 7.182 L* POC ABG pCO2 POC ABG pO2 ABG pO2 63.1 L ABG HCO3 17.4 L ABG O2 Saturation 73.4 L ABG Base Excess -12.6 L -7.1 L ABG Hemoglobin 7.7 L 6.9 L ABG Oxyhemoglobin Oxyhemoglobin 71.8 L 93.5 L Sodium Potassium Chloride 108.9 H Carbon Dioxide BUN 28 H Creatinine Glucose 293 H POC Glucose Lactic Acid Calcium 7.2 L Phosphorus AST 106 H ALT 92 H Alkaline Phosphatase C-Reactive Protein Total Protein 5.6 L Albumin 3.3 L Triglycerides Ur Specific [place] Urine Creatinine Crossmatch 06/13/21 06/13/21 06/13/21 14:54 15:45 17:34 WBC RBC Hgb Hct MCV MCH RDW Plt Count Lymph % (Auto) [place] % (Auto) [place] # (Auto) Seg Neutrophils % Seg Neuts % (Manual) Lymphocytes % (Manual) Monocytes % (Manual) Seg Neutrophils # Seg Neutrophils # Man Lymphocytes # (Manual) Monocytes # (Manual) PT INR APTT Fibrinogen D-Dimer ABG pH POC ABG pCO2 POC ABG pO2 ABG pO2 178.4 H ABG HCO3 ABG O2 Saturation 99.1 H ABG Base Excess ABG Hemoglobin 8.0 L ABG Oxyhemoglobin Oxyhemoglobin Sodium Potassium Chloride 107.3 H Carbon Dioxide 19 L BUN 33 H Creatinine 1.5 H Glucose 379 H POC Glucose Lactic Acid 5.30 H* Calcium 6.8 L Phosphorus AST ALT Alkaline Phosphatase C-Reactive Protein Total Protein Albumin Triglycerides Ur Specific [place] Urine Creatinine Crossmatch 06/13/21 06/13/21 06/13/21 17:40 23:29 Unknown WBC 22.5 H RBC 3.16 L Hgb 8.0 L Hct 26.0 L MCV MCH 26 L RDW 21.4 H Plt Count Lymph % (Auto) [place] % (Auto) [place] # (Auto) Seg Neutrophils % Seg Neuts % (Manual) 88.0 H Lymphocytes % (Manual) 4.0 L Monocytes % (Manual) Seg Neutrophils # Seg Neutrophils # Man 19.8 H Lymphocytes # (Manual) 0.9 L Monocytes # (Manual) 1.4 H PT INR APTT Fibrinogen D-Dimer ABG pH POC ABG pCO2 POC ABG pO2 ABG pO2 ABG HCO3 ABG O2 Saturation ABG Base Excess ABG Hemoglobin ABG Oxyhemoglobin Oxyhemoglobin Sodium Potassium Chloride Carbon Dioxide BUN Creatinine Glucose POC Glucose 294 H 288 H Lactic Acid Calcium Phosphorus AST ALT Alkaline Phosphatase C-Reactive Protein Total Protein Albumin Triglycerides Ur Specific [place] Urine Creatinine Crossmatch 06/13/21 06/14/21 06/14/21 Unknown 05:39 06:15 WBC RBC 2.93 L Hgb 7.2 L Hct 23.2 L MCV MCH 25 L RDW 21.2 H Plt Count Lymph % (Auto) [place] % (Auto) [place] # (Auto) Seg Neutrophils % Seg Neuts % (Manual) Lymphocytes % (Manual) Monocytes % (Manual) Seg Neutrophils # Seg Neutrophils # Man Lymphocytes # (Manual) Monocytes # (Manual) PT 17.6 H INR 1.31 H APTT Fibrinogen 546 H D-Dimer 1244.63 H ABG pH POC ABG pCO2 POC ABG pO2 ABG pO2 ABG HCO3 ABG O2 Saturation ABG Base Excess ABG Hemoglobin ABG Oxyhemoglobin Oxyhemoglobin Sodium Potassium Chloride Carbon Dioxide BUN Creatinine Glucose POC Glucose 246 H Lactic Acid Calcium Phosphorus AST ALT Alkaline Phosphatase C-Reactive Protein Total Protein Albumin Triglycerides Ur Specific [place] Urine Creatinine Crossmatch 02/03/2506/14/21 06/14/21 06:15 06:15 09:13 WBC RBC Hgb Hct MCV MCH RDW Plt Count Lymph % (Auto) [place] % (Auto) [place] # (Auto) Seg Neutrophils % Seg Neuts % (Manual) Lymphocytes % (Manual) Monocytes % (Manual) Seg Neutrophils # Seg Neutrophils # Man Lymphocytes # (Manual) Monocytes # (Manual) PT INR APTT Fibrinogen D-Dimer ABG pH POC ABG pCO2 POC ABG pO2 ABG pO2 183.0 H ABG HCO3 ABG O2 Saturation 99.2 H ABG Base Excess ABG Hemoglobin 6.6 L ABG Oxyhemoglobin Oxyhemoglobin Sodium 147 H Potassium Chloride 112.5 H Carbon Dioxide 21 L BUN 36 H Creatinine 1.4 H Glucose 281 H POC Glucose Lactic Acid Calcium 6.9 L Phosphorus AST ALT Alkaline Phosphatase C-Reactive Protein Total Protein Albumin Triglycerides 189 H Ur Specific [place] Urine Creatinine Crossmatch 06/14/21 06/14/21 06/14/21 10:45 12:16 13:30 WBC RBC Hgb 7.1 L Hct 22.3 L MCV MCH RDW Plt Count Lymph % (Auto) [place] % (Auto) [place] # (Auto) Seg Neutrophils % Seg Neuts % (Manual) Lymphocytes % (Manual) Monocytes % (Manual) Seg Neutrophils # Seg Neutrophils # Man Lymphocytes # (Manual) Monocytes # (Manual) PT INR APTT Fibrinogen D-Dimer ABG pH 7.205 L POC ABG pCO2 POC ABG pO2 ABG pO2 261.3 H ABG HCO3 ABG O2 Saturation 99.4 H ABG Base Excess -7.2 L ABG Hemoglobin 7.6 L ABG Oxyhemoglobin Oxyhemoglobin Sodium Potassium Chloride Carbon Dioxide BUN Creatinine Glucose POC Glucose 174 H Lactic Acid Calcium Phosphorus AST ALT Alkaline Phosphatase C-Reactive Protein Total Protein Albumin Triglycerides Ur Specific [place] Urine Creatinine Crossmatch 06/14/21 06/14/21 06/15/21 17:40 18:43 00:06 WBC RBC Hgb Hct MCV MCH RDW Plt Count Lymph % (Auto) [place] % (Auto) [place] # (Auto) Seg Neutrophils % Seg Neuts % (Manual) Lymphocytes % (Manual) Monocytes % (Manual) Seg Neutrophils # Seg Neutrophils # Man Lymphocytes # (Manual) Monocytes # (Manual) PT INR APTT Fibrinogen D-Dimer ABG pH 7.292 L POC ABG pCO2 POC ABG pO2 ABG pO2 78.8 L ABG HCO3 ABG O2 Saturation ABG Base Excess -5.0 L ABG Hemoglobin 9.1 L ABG Oxyhemoglobin Oxyhemoglobin 93.7 L Sodium Potassium Chloride Carbon Dioxide BUN Creatinine Glucose POC Glucose 182 H 144 H Lactic Acid Calcium Phosphorus AST ALT Alkaline Phosphatase C-Reactive Protein Total Protein Albumin Triglycerides Ur Specific [place] Urine Creatinine Crossmatch 06/15/21 06/15/21 06/15/21 03:55 03:56 10:40 WBC RBC Hgb 8.4 L Hct 25.8 L MCV MCH RDW Plt Count Lymph % (Auto) [place] % (Auto) [place] # (Auto) Seg Neutrophils % Seg Neuts % (Manual) Lymphocytes % (Manual) Monocytes % (Manual) Seg Neutrophils # Seg Neutrophils # Man Lymphocytes # (Manual) Monocytes # (Manual) PT INR APTT Fibrinogen D-Dimer ABG pH POC ABG pCO2 POC ABG pO2 ABG pO2 ABG HCO3 ABG O2 Saturation ABG Base Excess ABG Hemoglobin ABG Oxyhemoglobin Oxyhemoglobin Sodium 147 H Potassium Chloride 112.2 H Carbon Dioxide 21 L BUN 47 H Creatinine 1.9 H Glucose 272 H POC Glucose Lactic Acid Calcium 7.3 L Phosphorus AST 64 H ALT 106 H Alkaline Phosphatase C-Reactive Protein Total Protein 5.1 L Albumin 2.9 L Triglycerides Ur Specific [place] Urine Creatinine 81.1 H Crossmatch 06/15/21 06/15/21 06/15/21 11:46 17:16 23:17 WBC RBC Hgb Hct MCV MCH RDW Plt Count Lymph % (Auto) [place] % (Auto) [place] # (Auto) Seg Neutrophils % Seg Neuts % (Manual) Lymphocytes % (Manual) Monocytes % (Manual) Seg Neutrophils # Seg Neutrophils # Man Lymphocytes # (Manual) Monocytes # (Manual) PT INR APTT Fibrinogen D-Dimer ABG pH POC ABG pCO2 POC ABG pO2 ABG pO2 ABG HCO3 ABG O2 Saturation ABG Base Excess ABG Hemoglobin ABG Oxyhemoglobin Oxyhemoglobin Sodium Potassium Chloride Carbon Dioxide BUN Creatinine Glucose POC Glucose 271 H 268 H 264 H Lactic Acid Calcium Phosphorus AST ALT Alkaline Phosphatase C-Reactive Protein Total Protein Albumin Triglycerides Ur Specific [place] Urine Creatinine Crossmatch 06/15/21 06/15/21 06/16/21 Unknown Unknown 04:32 WBC RBC 3.21 L 3.16 L Hgb 8.4 L 8.2 L Hct 26.1 L 25.4 L MCV MCH 26 L 26 L RDW 21.3 H 21.2 H Plt Count 105 L 118 L Lymph % (Auto) [place] % (Auto) [place] # (Auto) Seg Neutrophils % Seg Neuts % (Manual) Lymphocytes % (Manual) Monocytes % (Manual) Seg Neutrophils # Seg Neutrophils # Man Lymphocytes # (Manual) Monocytes # (Manual) PT INR APTT Fibrinogen D-Dimer ABG pH 7.465 H POC ABG pCO2 POC ABG pO2 ABG pO2 114.1 H ABG HCO3 ABG O2 Saturation ABG Base Excess ABG Hemoglobin 8.4 L ABG Oxyhemoglobin Oxyhemoglobin Sodium Potassium Chloride Carbon Dioxide BUN Creatinine Glucose POC Glucose Lactic Acid Calcium Phosphorus AST ALT Alkaline Phosphatase C-Reactive Protein Total Protein Albumin Triglycerides Ur Specific [place] Urine Creatinine Crossmatch 06/16/21 06/16/21 06/16/21 04:32 04:32 05:08 WBC RBC Hgb Hct MCV MCH RDW Plt Count Lymph % (Auto) [place] % (Auto) [place] # (Auto) Seg Neutrophils % Seg Neuts % (Manual) Lymphocytes % (Manual) Monocytes % (Manual) Seg Neutrophils # Seg Neutrophils # Man Lymphocytes # (Manual) Monocytes # (Manual) PT INR APTT Fibrinogen D-Dimer ABG pH POC ABG pCO2 POC ABG pO2 ABG pO2 ABG HCO3 ABG O2 Saturation ABG Base Excess ABG Hemoglobin ABG Oxyhemoglobin Oxyhemoglobin Sodium 148 H Potassium 3.3 L Chloride 115.1 H Carbon Dioxide 21 L BUN 54 H Creatinine 1.6 H Glucose 367 H POC Glucose 356 H Lactic Acid Calcium 7.4 L Phosphorus AST ALT Alkaline Phosphatase C-Reactive Protein 3.30 H Total Protein Albumin Triglycerides Ur Specific [place] Urine Creatinine Crossmatch 06/16/21 06/16/21 06/16/21 05:30 11:46 17:03 WBC RBC Hgb Hct MCV MCH RDW Plt Count Lymph % (Auto) [place] % (Auto) [place] # (Auto) Seg Neutrophils % Seg Neuts % (Manual) Lymphocytes % (Manual) Monocytes % (Manual) Seg Neutrophils # Seg Neutrophils # Man Lymphocytes # (Manual) Monocytes # (Manual) PT INR APTT Fibrinogen D-Dimer ABG pH 7.475 H POC ABG pCO2 POC ABG pO2 ABG pO2 171.8 H ABG HCO3 ABG O2 Saturation 99.1 H ABG Base Excess ABG Hemoglobin 11.7 L ABG Oxyhemoglobin Oxyhemoglobin Sodium Potassium Chloride Carbon Dioxide BUN Creatinine Glucose POC Glucose 309 H 345 H Lactic Acid Calcium Phosphorus AST ALT Alkaline Phosphatase C-Reactive Protein Total Protein Albumin Triglycerides Ur Specific [place] Urine Creatinine Crossmatch 06/16/21 06/16/21 06/17/21 20:18 23:22 04:50 WBC RBC Hgb Hct MCV MCH RDW Plt Count Lymph % (Auto) [place] % (Auto) [place] # (Auto) Seg Neutrophils % Seg Neuts % (Manual) Lymphocytes % (Manual) Monocytes % (Manual) Seg Neutrophils # Seg Neutrophils # Man Lymphocytes # (Manual) Monocytes # (Manual) PT INR APTT Fibrinogen D-Dimer ABG pH 7.479 H POC ABG pCO2 POC ABG pO2 ABG pO2 143.1 H ABG HCO3 ABG O2 Saturation ABG Base Excess ABG Hemoglobin 10.0 L ABG Oxyhemoglobin Oxyhemoglobin Sodium Potassium Chloride Carbon Dioxide BUN Creatinine Glucose POC Glucose 325 H 315 H Lactic Acid Calcium Phosphorus AST ALT Alkaline Phosphatase C-Reactive Protein Total Protein Albumin Triglycerides Ur Specific [place] Urine Creatinine Crossmatch 06/17/21 06/17/21 06/17/21 05:18 05:30 05:30 WBC RBC 3.17 L Hgb 8.2 L Hct 25.5 L MCV MCH 26 L RDW 21.2 H Plt Count 128 L Lymph % (Auto) [place] % (Auto) [place] # (Auto) Seg Neutrophils % Seg Neuts % (Manual) Lymphocytes % (Manual) Monocytes % (Manual) Seg Neutrophils # Seg Neutrophils # Man Lymphocytes # (Manual) Monocytes # (Manual) PT INR APTT Fibrinogen D-Dimer ABG pH POC ABG pCO2 POC ABG pO2 ABG pO2 ABG HCO3 ABG O2 Saturation ABG Base Excess ABG Hemoglobin ABG Oxyhemoglobin Oxyhemoglobin Sodium 148 H Potassium Chloride 113.7 H Carbon Dioxide 20 L BUN 57 H Creatinine 1.4 H Glucose 351 H POC Glucose 324 H Lactic Acid Calcium 8.0 L Phosphorus 2.30 L AST ALT Alkaline Phosphatase C-Reactive Protein Total Protein Albumin Triglycerides Ur Specific [place] Urine Creatinine Crossmatch 06/17/21 06/17/21 06/17/21 11:49 17:43 21:42 WBC RBC Hgb Hct MCV MCH RDW Plt Count Lymph % (Auto) [place] % (Auto) [place] # (Auto) Seg Neutrophils % Seg Neuts % (Manual) Lymphocytes % (Manual) Monocytes % (Manual) Seg Neutrophils # Seg Neutrophils # Man Lymphocytes # (Manual) Monocytes # (Manual) PT INR APTT Fibrinogen D-Dimer ABG pH POC ABG pCO2 POC ABG pO2 ABG pO2 ABG HCO3 ABG O2 Saturation ABG Base Excess ABG Hemoglobin ABG Oxyhemoglobin Oxyhemoglobin Sodium Potassium Chloride Carbon Dioxide BUN Creatinine Glucose POC Glucose 305 H 307 H 286 H Lactic Acid Calcium Phosphorus AST ALT Alkaline Phosphatase C-Reactive Protein Total Protein Albumin Triglycerides Ur Specific [place] Urine Creatinine Crossmatch 06/17/21 06/18/21 06/18/21 23:59 04:20 04:37 WBC RBC 3.53 L Hgb 9.1 L Hct 28.7 L MCV MCH 26 L RDW 21.3 H Plt Count Lymph % (Auto) [place] % (Auto) [place] # (Auto) Seg Neutrophils % Seg Neuts % (Manual) Lymphocytes % (Manual) Monocytes % (Manual) Seg Neutrophils # Seg Neutrophils # Man Lymphocytes # (Manual) Monocytes # (Manual) PT INR APTT Fibrinogen D-Dimer ABG pH 7.495 H POC ABG pCO2 POC ABG pO2 ABG pO2 108.3 H ABG HCO3 ABG O2 Saturation ABG Base Excess -2.1 L ABG Hemoglobin 10.0 L ABG Oxyhemoglobin Oxyhemoglobin Sodium Potassium Chloride Carbon Dioxide BUN Creatinine Glucose POC Glucose 264 H Lactic Acid Calcium Phosphorus AST ALT Alkaline Phosphatase C-Reactive Protein Total Protein Albumin Triglycerides Ur Specific [place] Urine Creatinine Crossmatch 06/18/21 06/18/21 04:37 05:32 WBC RBC Hgb Hct MCV MCH RDW Plt Count Lymph % (Auto) [place] % (Auto) [place] # (Auto) Seg Neutrophils % Seg Neuts % (Manual) Lymphocytes % (Manual) Monocytes % (Manual) Seg Neutrophils # Seg Neutrophils # Man Lymphocytes # (Manual) Monocytes # (Manual) PT INR APTT Fibrinogen D-Dimer ABG pH POC ABG pCO2 POC ABG pO2 ABG pO2 ABG HCO3 ABG O2 Saturation ABG Base Excess ABG Hemoglobin ABG Oxyhemoglobin Oxyhemoglobin Sodium 148 H Potassium Chloride 114.7 H Carbon Dioxide BUN 59 H Creatinine 1.3 H Glucose 329 H POC Glucose 293 H Lactic Acid Calcium 8.1 L Phosphorus AST ALT Alkaline Phosphatase C-Reactive Protein Total Protein Albumin Triglycerides Ur Specific [place] Urine Creatinine Crossmatch
[2021-06-18] MEDS: FAMOTIDINE 20 MG/2 ML INJ IV SCH ×2 (10:10→21:40)
--- NOTE | 2021-06-18 11:11 | Progress Note ---
<VIOLETTE DEMPSEY - Last Filed: 06/18/21 16:27> Assessment and Plan Assessment and plan: This is a 76-year-old female with HTN, Coumadin use , dental caries, PVD s/p stenting right leg, DM, arthritis, depression, gout, and ? Pulmonary hypertension who presented to emergency department on 06/11 with complaints of pain to mandible area and throat and swelling. Work-up in the emergency department included CT scan of the head and neck which showed findings consistent with Jeremiah's angina and anesthesia was called for intubation. Anesthesia intubation attempts were unsuccessful and surgery was consulted for cricothyroidotomy which was unsuccessful in the emergency department and patient was taken to the OR for tracheostomy. Intubation procedure was complicated by development of pneumothorax and excessive bleeding due to supratherapeutic INR s/p multiple FFP's and vitamin K. Remains intubated and sedated in the ICU. Hospital course to date: 06/12: Patient received additional 2 units FFP and 1 unit PRBC and vitamin K today. Overnight critical care placed a femoral CVL. Patient sedated on fe ntanyl, propofol and Versed. Currently on Fabian-Synephrine and Levophed for blood pressure maintenance. Remains amatory support. Infectious disease consulted. Started on sliding scale insulin and recultured. COVID-19 PCR pending. Surgery at bedside to place chest tube. 06/13: Patient was taken back to the OR today for exchange cricothyroid to possible tracheostomy. Patient returned with ETT. Chest tube was changed to larger size in the OR. Patient was hypotensive, tachycardic, hypoxic in the OR and received hespan, albumin and an A-line. Upon arrival patient was increased to max dose Levophed for hypotension which has resolved. Titrating vasopressors as tolerated. Remains on sedation with 3 agents. Apparently patient was not ventilating her left lung Intra-Op. Noted to have subcu hematoma and trauma to postpharyngeal area. Questionable decrease cardiac wall motion noted in OR-> w ill order echocardiogram to further investigate. Patient received additional PRBC today. DIC panel resulted as normal. Patient BUN/creatinine did increase as well as noted to have lactic acidosis. May need IV bolus in addition to pressor use. Likely bronc with Pulmicort today as repeat CXR showed right possible pneumo hydrothorax 06/14: Antibiotics changed to Zosyn per ID, surgical packing removed from neck and makeshift [place] drain placed by surgery and old chronic thyroidectomy site. CXR was completed and RN heard gurgling and blood was noted on dressing. ST elevation noted on bedside monitor and patient was hypoxic. FiO2 increased to 100%. However shortly after patient lost her pulse and ACLS was initiated. Patient received 3 rounds of epinephrine and ROSC was achieved. Stat portable CXR showed resolution of lower lobe collapse on the left and stable right-sided chest tube with hemothorax. CCM updated family. Patient H/H noted to be 7.2/23.2 and did RN to transfuse prepared PRBC which [facility]. Bedside echo completed. 06/15: Off sedation, intermittently follows commands, remains on the prednisone. Surgery will reassess airway on Thursday to see if any further support is required. Urine studies indicate prerenal, given IV bolus and started on Clinimix today. 06/16: Patient restarted on fentanyl drip due to hypertension. Given more LR due to CR improvement post LR yesterday. Patient started on Lantus subcu after given one-time dose of Lantus. PICC placed today. Patient had a CT chest today which showed no mediasinusitis but extensive subcutaneous air. 06/17: General Surgery recommended transferring patient to a ENT specialized facility. Placed a call to [facility], spoke with the inserting press operator, Dr. Duckworth, who stated that a transfer is possible as long their ENT team accept the patient. Awaiting on a final response. Continue current supportive measures. Basal insulin adjusted for hyperglycemia. 06/18: JEREMIAS overnight. Hypertensive this am, PRN Hydralazine for SBP greater than 160. Remains hyperglycemic, patient is on IV steroids and TPN, basal insulin adjusted. Plan for possible transfer to [facility] once an ICU bed is available. Neuro: Sedated, h/o depression, arthritis -Sedated propofol, fentanyl, and versed gtt -RASS goal -4 to -5 -Avoid delirium -Reorientation as needed -Maintain sleep-wake cycle Cardiac: S/p cardiac arrest, h/o htn, PVD s/p stenting Right leg -06/14 cardiac arrest with ROSC -S/p vasopressor support with Levophed and Fabian-Synephrine -Blood pressure monitoring per protocol -Pressure monitoring via A-line -Echocardiogram pending Respiratory: Acute hypoxic respiratory failure, right pneumothorax -CCM consulted, appreciate recommendations -S/p emergent cricothyroid with surgery with 8.00 ETT -A.m. vent settings: Assist-control, rate 22, tidal volume 500, PEEP six, FiO2 50% -See RT notes for titration -A.m. ABG and CXR noted -Right chest tube replaced by surgery -CT to wall suction -Changed to larger bore on 06/13 -Postop CXR shows possible hydropneumothorax on right side -06/13 bronchoscopy showed possible blood clot in left lung which may be acting as mucous plug however it was left in place due to possible bleeding inside lung if removed. -CXR post cardiac arrest shows clearance of mucous plug -06/16 CT chest shows moderate right pneumothorax with collapse of right upper lobe, right thoracostomy tube terminates at the collapsed right upper lobe, bilateral bronchus opacities compatible with infectious/inflammatory etiology, bilateral small pleural effusion, extensive subcutaneous air, small fluid c ollection in the anterior mediastinum is nonspecific -VAP bundle -SPO2 monitoring : Acute kidney injury possibly secondary to vasomotor nephropathy hypernatremia -Strict intake and output -Renally dose medications -Avoid nephrotoxic medications -Daily weights -Consider nephrology consult if worsens -Trend BMP ID: 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 dental caries -CT neck with contrast showed a significant right floor of mild swelling with extension into the submandibular and submental spaces, significant thickening and inflammation involving the right pharyngeal wall, with the parapharyngeal and retropharyngeal spaces at the level of the thyroid cartilage, epiglottis significantly swollen and so are the aryepiglottic folds resulting in significant airway narrowing at this level, no lymphadenopathy, symmetric subman dibular and parathyroid glands, S few scattered caries but no periapical lucencies, nonspecific calcification along the right lateral oropharynx, no definite stone seen within the territory of the submandibular gland ducts, no suspicious rashes lesion -Infectious disease and general surgery consulted, appreciate recommendations -s/p cricothyroidectomy -Will follow surgery to direction and treatment of injury -Per surgery may have mucosal injury -Intra-Op findings include post pharyngeal swelling and bruising -Solu-Medrol 125 every 8 -Antibiotic therapy Zosyn -COVID-19 PCR negative -f/u blood culture -Monitor WBC and temperature curve -s/p 5L normal saline bolus in ED, 6 L LR bolus in ICU - repeat LR bolus today Heme: Coagulopathy, supratherapeutic INR, acute blood loss anemiq, possible component of hemorrhagic shock -Patient is on Coumadin at home -S/p 5 FFP, 7 PRBC, vitamin K x3 -Trend CBC -Presented with H/H of 10.3/34.6 and decreased to 6.7/22.4 -INR 8.18-> 4.55-> 2.1-> 1.23-> 1.16-> 1.31 -Monitor INR -Transfuse hemoglobin less than 7 -Monitor for signs of bleeding -SCDs to BLE while in bed -Avoid chemical anticoagulation in setting of recent blood loss anemia Endo: Hyperglycemia, h/o DM, gout -Patient is on TPN -Continue high dose SSI Q6hrs -Lantus adjusted BID -Avoid hypoglycemia The high probability of a clinically significant, sudden or life threatening deterioration of the [multi] system(s) required my full and direct attention, intervention and personal management. The aggregate critical care time was [60] minutes. This time is in addition to time spent performing reported procedures but includes the following: [x] Data Review and interpretation [x] Patient assessment and monitoring of vital signs [x] Documentation [x] Medication orders and management Disposition Plan: ICU Total Time Spent with Patient (Minutes): 60 History Interval history: Patient seen and examined at the bedside. Intubated and Sedated on propofol, fentanyl, and versed RASS -4 to -5. Remains on TPN. JEREMIAS overnight Hospitalist Physical - Constitutional Vitals: Temp Pulse Resp BP Pulse Ox 98.2 F 70 26 H 143/70 100 06/18/21 08:00 06/18/21 10:46 06/18/21 10:46 06/18/21 10:46 06/18/21 10:46 General appearance: Present: no acute distress, obese, other (Intubated and sedated) - EENT Eyes: Present: PERRL - Respiratory Respiratory effort: normal Respiratory: bilateral: diminished - Cardiovascular Rhythm: regular Heart Sounds: Present: S1 & S2 - Extremities Extremities: no ischemia, pulses intact, pulses symmetrical Extremity abnormal: edema - Peripheral Assessment Generalized Edema Type: Non-pitting Edema Degree: 1+ Capillary Refill: < 3 seconds Skin Temperature: Warm Peripheral Pulses: within normal limits - Abdominal General gastrointestinal: soft, non-distended, hypoactive bowel sounds - Integumentary Integumentary: Present: warm, dry - Psychiatric Psychiatric: other (Intubated and sedated) - Neurologic Neurologic: other (Intubated and sedated) - Allied Health Allied health notes reviewed: nursing HEART Score - HEART Score Troponin: Troponin T < 0.010 ng/mL (0.00-0.029) 06/11/21 23:21 Results - Labs CBC & Chem 7: 06/18/21 04:37 06/18/21 04:37 Labs: Laboratory Last Values WBC 7.1 K/mm3 (4.5-11.0) 06/18/21 04:37 RBC 3.53 M/mm3 (3.65-5.03) L 06/18/21 04:37 Hgb 9.1 gm/dl (10.1-14.3) L 06/18/21 04:37 Hct 28.7 % (30.3-42.9) L 06/18/21 04:37 MCV 81 fl (79-97) 06/18/21 04:37 MCH 26 pg (28-32) L 06/18/21 04:37 MCHC 32 % (30-34) 06/18/21 04:37 RDW 21.3 % (13.2-15.2) H 06/18/21 04:37 Plt Count 151 K/mm3 (140-440) 06/18/21 04:37 Lymph % (Auto) 9.2 % (13.4-35.0) L 06/11/21 19: [place] % (Auto) 1.4 % (0.0-7.3) 06/11/21 19: Eos % (Auto) 0.2 % (0.0-4.3) 06/11/21 19: Baso % (Auto) 0.2 % (0.0-1.8) 06/11/21 19: Lymph # (Auto) 1.4 K/mm3 (1.2-5.4) 06/11/21 19:29 [place] # (Auto) 0.2 K/mm3 (0.0-0.8) 06/11/21 19: Eos # (Auto) 0.0 K/mm3 (0.0-0.4) 06/11/21 19:29 Baso # (Auto) 0.0 K/mm3 (0.0-0.1) 06/11/21 19:29 Add Manual Diff Complete 06/13/21 Unknown Total Counted 100 06/13/21 Unknown Seg Neutrophils % 89.0 % (40.0-70.0) H 06/11/21 19:29 Seg Neuts % (Manual) 88.0 % (40.0-70.0) H 06/13/21 Unknown Band Neutrophils % 2.0 % 06/13/21 Unknown Lymphocytes % (Manual) 4.0 % (13.4-35.0) L 06/13/21 Unknown Reactive Lymphs % (Man) 0 % 06/13/21 Unknown Monocytes % (Manual) 6.0 % (0.0-7.3) 06/13/21 Unknown Eosinophils % (Manual) 0 % (0.0-4.3) 06/13/21 Unknown Basophils % (Manual) 0 % (0.0-1.8) 06/13/21 Unknown Metamyelocytes % 0 % 06/13/21 Unknown Myelocytes % 0 % 06/13/21 Unknown Promyelocytes % 0 % 06/13/21 Unknown Blast Cells % 0 % 06/13/21 Unknown Nucleated RBC % Not Reportable 06/13/21 Unknown Seg Neutrophils # 14.0 K/mm3 (1.8-7.7) H 06/11/21 19:29 Seg Neutrophils # Man 19.8 K/mm3 (1.8-7.7) H 06/13/21 Unknown Band Neutrophils # 0.5 K/mm3 06/13/21 Unknown Lymphocytes # (Manual) 0.9 K/mm3 (1.2-5.4) L 06/13/21 Unknown Abs React Lymphs (Man) 0.0 K/mm3 06/13/21 Unknown Monocytes # (Manual) 1.4 K/mm3 (0.0-0.8) H 06/13/21 Unknown Eosinophils # (Manual) 0.0 K/mm3 (0.0-0.4) 06/13/21 Unknown Basophils # (Manual) 0.0 K/mm3 (0.0-0.1) 06/13/21 Unknown Metamyelocytes # 0.0 K/mm3 06/13/21 Unknown Myelocytes # 0.0 K/mm3 06/13/21 Unknown Promyelocytes # 0.0 K/mm3 06/13/21 Unknown Blast Cells # 0.0 K/mm3 06/13/21 Unknown WBC Morphology Not Reportable 06/13/21 Unknown Hypersegmented Neuts Not Reportable 06/13/21 Unknown Hyposegmented Neuts Not Reportable 06/13/21 Unknown Hypogranular Neuts Not Reportable 06/13/21 Unknown Smudge Cells Not Reportable 06/13/21 Unknown Toxic Granulation 2+ 06/13/21 Unknown Toxic Vacuolation Not Reportable 06/13/21 Unknown Dohle Bodies Not Reportable 06/13/21 Unknown Pelger-Huet Anomaly Not Reportable 06/13/21 Unknown Dennis Rods Not Reportable 06/13/21 Unknown Platelet Estimate Consistent w auto 06/13/21 Unknown Clumped Platelets Not Reportable 06/13/21 Unknown Plt Clumps, EDTA Not Reportable 06/13/21 Unknown Large Platelets Not Reportable 06/13/21 Unknown Giant Platelets Not Reportable 06/13/21 Unknown Platelet Satelliting Not Reportable 06/13/21 Unknown Plt Morphology Comment Not Reportable 06/13/21 Unknown RBC Morphology Not Reportable 06/13/21 Unknown Dimorphic RBCs Not Reportable 06/13/21 Unknown Polychromasia Few 06/13/21 Unknown Hypochromasia 2+ 06/13/21 Unknown Poikilocytosis Not Reportable 06/13/21 Unknown Anisocytosis 1+ 06/13/21 Unknown Microcytosis Not Reportable 06/13/21 Unknown Macrocytosis Not Reportable 06/13/21 Unknown Spherocytes Not Reportable 06/13/21 Unknown Pappenheimer Bodies Not Reportable 06/13/21 Unknown Sickle Cells Not Reportable 06/13/21 Unknown Target Cells Not Reportable 06/13/21 Unknown Tear Drop Cells Not Reportable 06/13/21 Unknown Ovalocytes Not Reportable 06/13/21 Unknown Stomatocytes Few 06/12/21 01:45 Helmet Cells Not Reportable 06/13/21 Unknown [place]-Livengood Bodies Not Reportable 06/13/21 Unknown Solo Rings Not Reportable 06/13/21 Unknown Nelsy Cells Not Reportable 06/13/21 Unknown Bite Cells Not Reportable 06/13/21 Unknown Crenated Cell Not Reportable 06/13/21 Unknown Elliptocytes Not Reportable 06/13/21 Unknown Acanthocytes (Spur) Not Reportable 06/13/21 Unknown Rouleaux Not Reportable 06/13/21 Unknown Hemoglobin C Crystals Not Reportable 06/13/21 Unknown Schistocytes Not Reportable 06/13/21 Unknown Malaria parasites Not Reportable 06/13/21 Unknown Edin Bodies Not Reportable 06/13/21 Unknown Hem Pathologist Commnt No 06/13/21 Unknown PT 17.6 Sec. (12.2-14.9) H 06/13/21 Unknown INR 1.31 (0.87-1.13) H 06/13/21 Unknown APTT 26.4 Sec. (24.2-36.6) 06/13/21 Unknown Fibrinogen 546 mg/dl (211-480) H 06/13/21 Unknown D-Dimer 1244.63 ng/mlDDU (0-234) H 06/13/21 Unknown ABG pH 7.495 pH Units (7.350-7.450) H 06/18/21 04:20 POC ABG pCO2 25.6 mmHg (32.0-48.0) L 06/13/21 04:31 ABG pCO2 26.9 mm Hg 06/18/21 04:20 POC ABG pO2 138.8 mmHg (83-108) H 06/13/21 04:31 ABG pO2 108.3 mm Hg (80.0-90.0) H 06/18/21 04:20 POC ABG HCO3 21.4 06/13/21 04:31 ABG HCO3 20.3 mmol/L (20.0-26.0) 06/18/21 04:20 ABG O2 Saturation 98.2 % (95.0-99.0) 06/18/21 04:20 ABG O2 Content 13.8 (0.0-44) 06/18/21 04:20 POC ABG Base Excess -0.7 06/13/21 04:31 ABG Base Excess -2.1 mmol/L (-2.0-3.0) L 06/18/21 04:20 ABG Hemoglobin 10.0 gm/dl (12.0-16.0) L 06/18/21 04:20 ABG Oxyhemoglobin 98.1 (94-98) H 06/13/21 04:31 ABG Carboxyhemoglobin 1.3 % (0.0-5.0) 06/18/21 04:20 ABG Methemoglobin 0.5 % (0.0-1.5) 06/18/21 04:20 Oxyhemoglobin 96.5 % (95.0-99.0) 06/18/21 04:20 Carboxyhemoglobin 0.8 (0.5-1.5) 06/13/21 04:31 FiO2 30 % 06/18/21 04:20 FiO2 % 40.0 06/13/21 04:31 Sodium 148 mmol/L (137-145) H 06/18/21 04:37 Potassium 3.9 mmol/L (3.6-5.0) 06/18/21 04:37 Chloride 114.7 mmol/L (98-107) H 06/18/21 04:37 Carbon Dioxide 22 mmol/L (22-30) 06/18/21 04:37 Anion Gap 15 mmol/L 06/18/21 04:37 BUN 59 mg/dL (7-17) H 06/18/21 04:37 Creatinine 1.3 mg/dL (0.6-1.2) H 06/18/21 04:37 Estimated GFR 48 ml/min 06/18/21 04:37 BUN/Creatinine Ratio 45 % 06/18/21 04:37 Glucose 329 mg/dL (65-100) H 06/18/21 04:37 POC Glucose 293 mg/dL (70-105) H 06/18/21 05:32 Lactic Acid 5.30 mmol/L (0.7-2.0) H* 06/13/21 15:45 Calcium 8.1 mg/dL (8.4-10.2) L 06/18/21 04:37 Phosphorus 3.20 mg/dL (2.5-4.5) D 06/18/21 04:37 Magnesium 2.30 mg/dL (1.7-2.3) 06/18/21 04:37 Total Bilirubin 0.40 mg/dL (0.1-1.2) 06/15/21 03:56 AST 64 units/L (5-40) H 06/15/21 03:56 ALT 106 units/L (7-56) H 06/15/21 03:56 Alkaline Phosphatase 55 units/L (35-129) 06/15/21 03:56 Troponin T < 0.010 ng/mL (0.00-0.029) 06/11/21 23:21 C-Reactive Protein 3.30 mg/dL (0.00-1.30) H 06/16/21 04:32 Total Protein 5.1 g/dL (6.3-8.2) L 06/15/21 03:56 Albumin 2.9 g/dL (3.9-5) L 06/15/21 03:56 Albumin/Globulin Ratio 1.3 % 06/15/21 03:56 Triglycerides 189 mg/dL (2-149) H 06/14/21 06:15 Urine Color Yellow (Yellow) 06/12/21 17:00 Urine Turbidity Clear (Clear) 06/12/21 17:00 Urine pH 5.0 (5.0-7.0) 06/12/21 17:00 Ur Specific Vivian 1.035 (1.003-1.030) H 06/12/21 17:00 Urine Protein 30 mg/dl mg/dL (Negative) 06/12/21 17:00 Urine Glucose (UA) 50 mg/dL (Negative) 06/12/21 17:00 Urine Ketones Tr mg/dL (Negative) 06/12/21 17:00 Urine Blood Neg (Negative) 06/12/21 17:00 Urine Nitrite Neg (Negative) 06/12/21 17:00 Urine Bilirubin Neg (Negative) 06/12/21 17:00 Urine Urobilinogen < 2.0 mg/dL (<2.0) 06/12/21 17:00 Ur Leukocyte Esterase Neg (Negative) 06/12/21 17:00 Urine WBC (Auto) < 1.0 /HPF (0.0-6.0) 06/12/21 17:00 Urine RBC (Auto) < 1.0 /HPF (0.0-6.0) 06/12/21 17:00 Urine Creatinine 81.1 mg/dL (0.1-20.0) H 06/15/21 10:40 Urine Sodium 42 mmol/L 06/15/21 10:40 Coronavirus (PCR) Negative (Negative) 06/12/21 09:50 Blood Type O POSITIVE 06/11/21 19:20 Antibody Screen Negative 06/11/21 19:20 Crossmatch See Detail 06/11/21 19:20 Microbiology: Microbiology 06/12/21 09:40 Peripheral/Venous Blood Culture - Final NO GROWTH AFTER 5 DAYS 06/12/21 09:40 Peripheral/Venous Blood Culture - Final NO GROWTH AFTER 5 DAYS Lujan/IV: Voiding Method Indwelling Catheter Active Medications - Current Medications Current Medications: Generic Name Dose Route Start Last Admin Trade Name Freq PRN Reason Stop Dose Admin Famotidine 10 mg 06/15/21 22:00 06/18/21 10:10 Famotidine 20 Mg/2 Ml Inj IV 10 mg BID JOLENE Administration Fentanyl 50 mcg 06/11/21 22:55 06/15/21 16:50 Fentanyl 100 Mcg/2 Ml Inj IV 50 mcg Q10MIN PRN Administration ANALGESIA Hydralazine HCl 10 mg 06/16/21 08:00 06/18/21 08:32 Hydralazine 20 Mg/1 Ml Inj IV 10 mg Q4H PRN Administration Hypertension Hydromorphone HCl 0.5 mg 06/11/21 20:42 Hydromorphone 1 Mg/1 Ml Inj IV Q3H PRN Pain , Severe (7-10) Midazolam DRIP Premix 100 mg in 100 mls @ 1 mls/hr 06/11/21 23:00 06/17/21 15:55 Midazolam/Ns 100 Mg/100 Ml IV 2 mg/hr TITR JOLENE 2 mls/hr Titration Protocol 1 MG/HR Fentanyl Citrate 2,000 mcg in 100 mls @ 5.466 mls/hr 06/11/21 23:00 06/18/21 07:31 Fentanyl Drip Premix IV 4 mcg/kg/hr TITR JOLENE 21.863 mls/hr Administration Protocol 1 MCG/KG/HR Phenylephrine HCl 100 mg/ 100 mls @ 3 mls/hr 06/11/21 23:45 06/14/21 07:00 Sodium Chloride IV 0 mcg/min TITR JOLENE 0 mls/hr Titration Protocol 50 MCG/MIN NORepinephrine/NS 8 MG-250 ML 8 mg in 250 mls @ 3.75 mls/hr 06/12/21 02:00 06/14/21 05:56 Norepinephrine/Ns 8 Mg-250 Ml (Double Conc) IV 0 mcg/min TITRATE JOLENE 0 mls/hr Titration Protocol 2 MCG/MIN Propofol 1,000 mg in 100 mls @ 3.279 mls/hr 06/12/21 03:00 06/18/21 11:02 Diprivan 10 Mg/Ml IV 50 mcg/kg/min TITR JOLENE 32.795 mls/hr Administration Protocol 5 MCG/KG/MIN Piperacillin Sod/Tazobactam Sod 3.375 gm in 50 mls @ 100 mls/hr 06/15/21 12:00 06/18/21 06:08 Zosyn/Ns 3.375gm/50ml IV 100 mls/hr Q6HR [facility] Administration Amino Acids/Electrolytes/Dextrose 1,999.92 mls @ 83.33 mls/hr 06/17/21 20:00 06/17/21 21:46 Tpn Adult IV 06/18/21 19:59 83.33 mls/hr DAILY@2000 [facility] Administration Protocol Insulin Glargine 20 units 06/18/21 08:11 Insulin Glargine 100 Units/Ml SUB-Q BID [facility] Insulin Human Lispro 0 unit 06/12/21 12:00 06/18/21 06:10 Insulin Lispro 100 Unit/Ml SUB-Q 6 unit Q6HR [facility] Administration Protocol Methylprednisolone Sodium Succinate 125 mg 06/11/21 22:00 06/18/21 06:08 Methylprednisolone Sod Succinate 125 Mg/2 Ml Inj IV 125 mg Q8HR JOLENE Administration Metoclopramide HCl 10 mg 06/11/21 20:42 Metoclopramide 10 Mg/2 Ml Inj IV Q6H PRN Nausea And Vomiting Ondansetron HCl 4 mg 06/11/21 20:42 Ondansetron 4 Mg/2 Ml Inj IV Q3H PRN Nausea And Vomiting Sodium Chloride 10 ml 06/11/21 22:00 06/18/21 10:13 Sodium Chloride 0.9% 10 Ml Flush Syringe IV 10 ml BID JOLENE Administration Sodium Chloride 10 ml 06/11/21 20:42 Sodium Chloride 0.9% 10 Ml Flush Syringe IV PRN PRN LINE FLUSH Nutrition/Malnutrition Assess - Dietary Evaluation Nutrition/Malnutrition Findings: Nutrition Notes Start: 06/16/21 12:10 Freq: Status: Active Protocol: Document 06/17/21 14:20 CANDIDO (Rec: 06/17/21 15:02 CANDIDO [id number]) Nutrition Notes Initial or Follow up Reassessment Current Diagnosis Diabetes,Sepsis,Hypertension, Respiratory Failure Other Pertinent Diagnosis Jeremiah's Angina, (R) Pneumothorax, Coagulopathy, Cardiac Arrest, Gout... Current Diet PPN (since 06/16), TPN @ 83. 33ml/hr (since 06/17). Labs/Tests 06/17: Na 148, Cl 113.7, CO2 20, BUN 57, Crea 1.4, Glu 351, Ca 8.0, Phos 2.3. Pertinent Medications 06/17: Insulin, Propofol 1000 mg in 100 ml @ 22.956 ml/hr ( 606 Kcal), others nutritionally unremarkable. Height 5 ft 8 in Weight 109.316 kg Hilbert Body Weight (kg) 63.63 BMI 36.6 Weight change and time frame No body weight change reported . Weight Status Obese Subjective/Other Information RD consult for routine F/u on TPN advancement. Femoral PICC line placed on , well tolerated, according to RN notes. Pt continues on mechanical ventilation. No report on HD at the time. Pt to be transferred to [place]/ [facility] for ENT evaluation, according to Progress notes. Percent of energy/protein needs met: Prescribed TPN @ 83.33ml/hr provides for energy/protein needs (680 Kcal/85 g) during LOS; additionally, Propofol adds 606 Kcal. A tolat proportion of 100% Kcal and 67 % AA. Burn Absent Trauma Absent GI Symptoms Other Difficulty In Swallowing,Chewing Food Allergy No Skin Integrity/Comment Surgical wounds. Current % PO Other Minimum of two criteria No #1 Nutrition Diagnosis Inadequate oral intake Diagnosis Progress(for reassessment Continues documentation) Is patient on ventilator? Yes Is Patient Ambulatory and/or Out of Bed No REE-([facility]-confined to bed) [phone] Calculation Used for Recommendations 65-70% energy needs Additional Notes Energy needs: 1,280-1,379 Kcal /day. Protein: 2 g/Kg IBW; 127 g/day . Fluids: 1 ml/Kcal, or as per MD. Nutrition Intervention Nutrition Support: Advance to TPN @ 83.33ml/hr: MVI, thiamine, 5% dextrose, 4. 3% amino acids, 0mEq Na, 80mEq K, 0mEq Mg, 10mEq Ca, 40mmol Phos, 0% chloride/100% acetate . Osmolality: 765. Kcal 680 Protein (gm) 85 Carbohydrates (gm) 100 Fat (gm) 0 Fluid (mL) 2,000 Fiber (gm) 0 % RDI: 53% Kcal; 67% AA. Goal #1 Provide at least 75% of energy /protein needs through Enteral Feeding during LOS. Goal #2 Maintain body weight within +/ -3% of admission body weight during LOS. Follow-Up By: 06/18/21 Additional Comments Continue monitoring TPN tolerance and BM, ventilation and HD status. BMP, Phos, and Mg labs ordered . <MIKE CORTEZ - Last Filed: 06/19/21 07:22> Assessment and Plan Assessment and plan: I saw and evaluated the patient. I agree with the findings and the plan of care as documented in the Nurse Practitioner's~note, with the following corrections and additions. Hospitalist Physical - Constitutional Vitals: Temp Pulse Resp BP Pulse Ox 97.9 F 51 L 17 146/81 100 06/19/21 07:18 06/19/21 06:45 06/19/21 06:45 06/19/21 06:45 06/19/21 06:45 HEART Score - HEART Score Troponin: Troponin T < 0.010 ng/mL (0.00-0.029) 06/11/21 23:21 Results - Labs CBC & Chem 7: 06/19/21 04:00 06/19/21 04:00 Labs: Laboratory Last Values WBC 8.8 K/mm3 (4.5-11.0) 06/19/21 04:00 RBC 3.64 M/mm3 (3.65-5.03) L 06/19/21 04:00 Hgb 9.1 gm/dl (10.1-14.3) L 06/19/21 04:00 Hct 29.1 % (30.3-42.9) L 06/19/21 04:00 MCV 80 fl (79-97) 06/19/21 04:00 MCH 25 pg (28-32) L 06/19/21 04:00 MCHC 31 % (30-34) 06/19/21 04:00 RDW 21.5 % (13.2-15.2) H 06/19/21 04:00 Plt Count 204 K/mm3 (140-440) 06/19/21 04:00 Lymph % (Auto) 9.2 % (13.4-35.0) L 06/11/21 19: [place] % (Auto) 1.4 % (0.0-7.3) 06/11/21 19: Eos % (Auto) 0.2 % (0.0-4.3) 06/11/21 19: Baso % (Auto) 0.2 % (0.0-1.8) 06/11/21 19: Lymph # (Auto) 1.4 K/mm3 (1.2-5.4) 06/11/21: [place] # (Auto) 0.2 K/mm3 (0.0-0.8) 06/11/21 19: Eos # (Auto) 0.0 K/mm3 (0.0-0.4) 06/11/21 19: Baso # (Auto) 0.0 K/mm3 (0.0-0.1) 06/11/21 19: Add Manual Diff Complete 06/13/21 Unknown Total Counted 100 06/13/21 Unknown Seg Neutrophils % 89.0 % (40.0-70.0) H 06/11/21 19: Seg Neuts % (Manual) 88.0 % (40.0-70.0) H 06/13/21 Unknown Band Neutrophils % 2.0 % 06/13/21 Unknown Lymphocytes % (Manual) 4.0 % (13.4-35.0) L 06/13/21 Unknown Reactive Lymphs % (Man) 0 % 06/13/21 Unknown Monocytes % (Manual) 6.0 % (0.0-7.3) 06/13/21 Unknown Eosinophils % (Manual) 0 % (0.0-4.3) 06/13/21 Unknown Basophils % (Manual) 0 % (0.0-1.8) 06/13/21 Unknown Metamyelocytes % 0 % 06/13/21 Unknown Myelocytes % 0 % 06/13/21 Unknown Promyelocytes % 0 % 06/13/21 Unknown Blast Cells % 0 % 06/13/21 Unknown Nucleated RBC % Not Reportable 06/13/21 Unknown Seg Neutrophils # 14.0 K/mm3 (1.8-7.7) H 06/11/21 19:29 Seg Neutrophils # Man 19.8 K/mm3 (1.8-7.7) H 06/13/21 Unknown Band Neutrophils # 0.5 K/mm3 06/13/21 Unknown Lymphocytes # (Manual) 0.9 K/mm3 (1.2-5.4) L 06/13/21 Unknown Abs React Lymphs (Man) 0.0 K/mm3 06/13/21 Unknown Monocytes # (Manual) 1.4 K/mm3 (0.0-0.8) H 06/13/21 Unknown Eosinophils # (Manual) 0.0 K/mm3 (0.0-0.4) 06/13/21 Unknown Basophils # (Manual) 0.0 K/mm3 (0.0-0.1) 06/13/21 Unknown Metamyelocytes # 0.0 K/mm3 06/13/21 Unknown Myelocytes # 0.0 K/mm3 06/13/21 Unknown Promyelocytes # 0.0 K/mm3 06/13/21 Unknown Blast Cells # 0.0 K/mm3 06/13/21 Unknown WBC Morphology Not Reportable 06/13/21 Unknown Hypersegmented Neuts Not Reportable 06/13/21 Unknown Hyposegmented Neuts Not Reportable 06/13/21 Unknown Hypogranular Neuts Not Reportable 06/13/21 Unknown Smudge Cells Not Reportable 06/13/21 Unknown Toxic Granulation 2+ 06/13/21 Unknown Toxic Vacuolation Not Reportable 06/13/21 Unknown Dohle Bodies Not Reportable 06/13/21 Unknown Pelger-Huet Anomaly Not Reportable 06/13/21 Unknown Dennis Rods Not Reportable 06/13/21 Unknown Platelet Estimate Consistent w auto 06/13/21 Unknown Clumped Platelets Not Reportable 06/13/21 Unknown Plt Clumps, EDTA Not Reportable 06/13/21 Unknown Large Platelets Not Reportable 06/13/21 Unknown Giant Platelets Not Reportable 06/13/21 Unknown Platelet Satelliting Not Reportable 06/13/21 Unknown Plt Morphology Comment Not Reportable 06/13/21 Unknown RBC Morphology Not Reportable 06/13/21 Unknown Dimorphic RBCs Not Reportable 06/13/21 Unknown Polychromasia Few 06/13/21 Unknown Hypochromasia 2+ 06/13/21 Unknown Poikilocytosis Not Reportable 06/13/21 Unknown Anisocytosis 1+ 06/13/21 Unknown Microcytosis Not Reportable 06/13/21 Unknown Macrocytosis Not Reportable 06/13/21 Unknown Spherocytes Not Reportable 06/13/21 Unknown Pappenheimer Bodies Not Reportable 06/13/21 Unknown Sickle Cells Not Reportable 06/13/21 Unknown Target Cells Not Reportable 06/13/21 Unknown Tear Drop Cells Not Reportable 06/13/21 Unknown Ovalocytes Not Reportable 06/13/21 Unknown Stomatocytes Few 06/12/21 01:45 Helmet Cells Not Reportable 06/13/21 Unknown [place]-Livengood Bodies Not Reportable 06/13/21 Unknown Solo Rings Not Reportable 06/13/21 Unknown [place] Cells Not Reportable 06/13/21 Unknown Bite Cells Not Reportable 06/13/21 Unknown Crenated Cell Not Reportable 06/13/21 Unknown Elliptocytes Not Reportable 06/13/21 Unknown Acanthocytes (Spur) Not Reportable 06/13/21 Unknown Rouleaux Not Reportable 06/13/21 Unknown Hemoglobin C Crystals Not Reportable 06/13/21 Unknown Schistocytes Not Reportable 06/13/21 Unknown Malaria parasites Not Reportable 06/13/21 Unknown Edin Bodies Not Reportable 06/13/21 Unknown Hem Pathologist Commnt No 06/13/21 Unknown PT 17.6 Sec. (12.2-14.9) H 06/13/21 Unknown INR 1.31 (0.87-1.13) H 06/13/21 Unknown APTT 26.4 Sec. (24.2-36.6) 06/13/21 Unknown Fibrinogen 546 mg/dl (211-480) H 06/13/21 Unknown D-Dimer 1244.63 ng/mlDDU (0-234) H 06/13/21 Unknown ABG pH 7.401 pH Units (7.350-7.450) 06/19/21 04:50 POC ABG pCO2 25.6 mmHg (32.0-48.0) L 06/13/21 04:31 ABG pCO2 35.0 mm Hg 06/19/21 04:50 POC ABG pO2 138.8 mmHg (83-108) H 06/13/21 04:31 ABG pO2 78.9 mm Hg (80.0-90.0) L 06/19/21 04:50 POC ABG HCO3 21.4 06/13/21 04:31 ABG HCO3 21.2 mmol/L (20.0-26.0) 06/19/21 04:50 ABG O2 Saturation 97.0 % (95.0-99.0) 06/19/21 04:50 ABG O2 Content 10.2 (0.0-44) 06/19/21 04:50 POC ABG Base Excess -0.7 06/13/21 04:31 ABG Base Excess -3.2 mmol/L (-2.0-3.0) L 06/19/21 04:50 ABG Hemoglobin 7.6 gm/dl (12.0-16.0) L 06/19/21 04:50 ABG Oxyhemoglobin 98.1 (94-98) H 06/13/21 04:31 ABG Carboxyhemoglobin 1.3 % (0.0-5.0) 06/19/21 04:50 ABG Methemoglobin 0.5 % (0.0-1.5) 06/19/21 04:50 Oxyhemoglobin 95.3 % (95.0-99.0) 06/19/21 04:50 Carboxyhemoglobin 0.8 (0.5-1.5) 06/13/21 04:31 FiO2 30 % 06/19/21 04:50 FiO2 % 40.0 06/13/21 04:31 Sodium 148 mmol/L (137-145) H 06/19/21 04:00 Potassium 4.0 mmol/L (3.6-5.0) 06/19/21 04:00 Chloride 114.9 mmol/L (98-107) H 06/19/21 04:00 Carbon Dioxide 19 mmol/L (22-30) L 06/19/21 04:00 Anion Gap 18 mmol/L 06/19/21 04:00 BUN 59 mg/dL (7-17) H 06/19/21 04:00 Creatinine 1.2 mg/dL (0.6-1.2) 06/19/21 04:00 Estimated GFR 53 ml/min 06/19/21 04:00 BUN/Creatinine Ratio 49 % 06/19/21 04:00 Glucose 345 mg/dL (65-100) H 06/19/21 04:00 POC Glucose 279 mg/dL (70-105) H 06/19/21 06:28 Lactic Acid 5.30 mmol/L (0.7-2.0) H* 06/13/21 15:45 Calcium 8.1 mg/dL (8.4-10.2) L 06/19/21 04:00 Phosphorus 4.60 mg/dL (2.5-4.5) H D 06/19/21 04:00 Magnesium 2.40 mg/dL (1.7-2.3) H 06/19/21 04:00 Total Bilirubin 0.40 mg/dL (0.1-1.2) 06/15/21 03:56 AST 64 units/L (5-40) H 06/15/21 03:56 ALT 106 units/L (7-56) H 06/15/21 03:56 Alkaline Phosphatase 55 units/L (35-129) 06/15/21 03:56 Troponin T < 0.010 ng/mL (0.00-0.029) 06/11/21 23:21 C-Reactive Protein 3.30 mg/dL (0.00-1.30) H 06/16/21 04:32 Total Protein 5.1 g/dL (6.3-8.2) L 06/15/21 03:56 Albumin 2.9 g/dL (3.9-5) L 06/15/21 03:56 Albumin/Globulin Ratio 1.3 % 06/15/21 03:56 Triglycerides 189 mg/dL (2-149) H 06/14/21 06:15 Urine Color Yellow (Yellow) 06/12/21 17:00 Urine Turbidity Clear (Clear) 06/12/21 17:00 Urine pH 5.0 (5.0-7.0) 06/12/21 17:00 Ur Specific Vivian 1.035 (1.003-1.030) H 06/12/21 17:00 Urine Protein 30 mg/dl mg/dL (Negative) 06/12/21 17:00 Urine Glucose (UA) 50 mg/dL (Negative) 06/12/21 17:00 Urine Ketones Tr mg/dL (Negative) 06/12/21 17:00 Urine Blood Neg (Negative) 06/12/21 17:00 Urine Nitrite Neg (Negative) 06/12/21 17:00 Urine Bilirubin Neg (Negative) 06/12/21 17:00 Urine Urobilinogen < 2.0 mg/dL (<2.0) 06/12/21 17:00 Ur Leukocyte Esterase Neg (Negative) 06/12/21 17:00 Urine WBC (Auto) < 1.0 /HPF (0.0-6.0) 06/12/21 17:00 Urine RBC (Auto) < 1.0 /HPF (0.0-6.0) 06/12/21 17:00 Urine Creatinine 81.1 mg/dL (0.1-20.0) H 06/15/21 10:40 Urine Sodium 42 mmol/L 06/15/21 10:40 Coronavirus (PCR) Negative (Negative) 06/12/21 09:50 Blood Type O POSITIVE 06/11/21 19:20 Antibody Screen Negative 06/11/21 19:20 Crossmatch See Detail 06/11/21 19:20 Lujan/IV: Voiding Method Indwelling Catheter Active Medications - Current Medications Current Medications: Generic Name Dose Route Start Last Admin Trade Name Freq PRN Reason Stop Dose Admin Famotidine 10 mg 06/15/21 22:00 06/18/21 21:40 Famotidine 20 Mg/2 Ml Inj IV 10 mg BID JOLENE Administration Fentanyl 50 mcg 06/11/21 22:55 06/15/21 16:50 Fentanyl 100 Mcg/2 Ml Inj IV 50 mcg Q10MIN PRN Administration ANALGESIA Hydralazine HCl 10 mg 06/16/21 08:00 06/19/21 03:02 Hydralazine 20 Mg/1 Ml Inj IV 10 mg Q4H PRN Administration Hypertension Hydromorphone HCl 0.5 mg 06/11/21 20:42 Hydromorphone 1 Mg/1 Ml Inj IV Q3H PRN Pain , Severe (7-10) MIDAZOLAM/NS Drip 100mg/100ml 100 mg in 100 mls @ 1 mls/hr 06/11/21 23:00 06/19/21 00:13 Midazolam/Ns Drip 100mg/100ml IV 3 mg/hr TITR JOLENE 3 mls/hr Administration Protocol 1 MG/HR Fentanyl Citrate 2,000 mcg in 100 mls @ 5.466 mls/hr 06/11/21 23:00 06/19/21 06:44 Fentanyl Drip Premix IV 4 mcg/kg/hr TITR JOLENE 21.863 mls/hr Administration Protocol 1 MCG/KG/HR Phenylephrine HCl 100 mg/ 100 mls @ 3 mls/hr 06/11/21 23:45 06/14/21 07:00 Sodium Chloride IV 0 mcg/min TITR JOLENE 0 mls/hr Titration Protocol 50 MCG/MIN NORepinephrine/NS 8 MG-250 ML 8 mg in 250 mls @ 3.75 mls/hr 06/12/21 02:00 06/19/21 04:59 Norepinephrine/Ns 8 Mg-250 Ml (Double Conc) IV 0 mcg/min TITRATE JOLENE 0 mls/hr Titration Protocol 2 MCG/MIN Propofol 1,000 mg in 100 mls @ 3.279 mls/hr 06/12/21 03:00 06/19/21 06:44 Diprivan 10 Mg/Ml IV 30 mcg/kg/min TITR JOLENE 19.677 mls/hr Administration Protocol 5 MCG/KG/MIN Piperacillin Sod/Tazobactam Sod 3.375 gm in 50 mls @ 100 mls/hr 06/15/21 12:00 06/19/21 05:18 Zosyn/Ns 3.375gm/50ml IV 100 mls/hr Q6HR [facility] Administration Amino Acids/Electrolytes/Dextrose 1,999.92 mls @ 83.33 mls/hr 06/18/21 20:00 06/18/21 21:03 Tpn Adult IV 06/19/21 19:59 83.33 mls/hr DAILY@2000 [facility] Administration Protocol Insulin Glargine 20 units 06/18/21 08:11 06/18/21 21:46 Insulin Glargine 100 Units/Ml SUB-Q 20 units BID [facility] Administration Insulin Human Lispro 0 unit 06/12/21 12:00 06/19/21 06:43 Insulin Lispro 100 Unit/Ml SUB-Q 6 unit Q6HR [facility] Administration Protocol Methylprednisolone Sodium Succinate 125 mg 06/11/21 22:00 06/19/21 05:18 Methylprednisolone Sod Succinate 125 Mg/2 Ml Inj IV 125 mg Q8HR JOLENE Administration Metoclopramide HCl 10 mg 06/11/21 20:42 Metoclopramide 10 Mg/2 Ml Inj IV Q6H PRN Nausea And Vomiting Ondansetron HCl 4 mg 06/11/21 20:42 Ondansetron 4 Mg/2 Ml Inj IV Q3H PRN Nausea And Vomiting Sodium Chloride 10 ml 06/11/21 22:00 06/18/21 21:48 Sodium Chloride 0.9% 10 Ml Flush Syringe IV 10 ml BID JOLENE Administration Sodium Chloride 10 ml 06/11/21 20:42 Sodium Chloride 0.9% 10 Ml Flush Syringe IV PRN PRN LINE FLUSH Nutrition/Malnutrition Assess - Dietary Evaluation Nutrition/Malnutrition Findings: Nutrition Notes Start: 06/16/21 12:10 Freq: Status: Active Protocol: Document 06/18/21 10:58 CANDIDO (Rec: 06/18/21 11:49 CANDIDO [id number]) Nutrition Notes Initial or Follow up Reassessment Current Diagnosis Decubitus(Pressure Ulcer), Sepsis,Hypertension, Respiratory Failure Other Pertinent Diagnosis Jeremiah's Angina, (R) Pneumothorax, Coagulopathy, Cardiac Arrest, Gout... Current Diet PPN (since 06/16), TPN @ 83. 33ml/hr (since 06/17). Labs/Tests 06/18: Na 148, Cl 114.7, BUN 59, Crea 1.3, Glu 329. Pertinent Medications 06/18: Insulin, Propofol 1000 mg in 100 ml @ 32.795 ml/hr ( 866 Kcal), others nutritionally unremarkable. Height 5 ft 8 in Weight 109.316 kg Hilbert Body Weight (kg) 63.63 BMI 36.6 Weight change and time frame No body weight change reported . Weight Status Obese Subjective/Other Information RD consult for routine F/u on TPN advancement. Femoral PICC line well tolerated, according to RN notes. Pt continues on mechanical ventilation. No report on HD at the time. Pt accepted to be transferred to [facility] for ENT evaluation, but no beds available at the time according to Progress notes. Percent of energy/protein needs met: Prescribed TPN @ 83.33ml/hr provides for energy/protein needs (680 Kcal/85 g) during LOS; additionally, Propofol adds 866 Kcal. A tolat proportion of 100% Kcal and 67 % AA. Burn Absent Trauma Absent GI Symptoms Other Difficulty In Swallowing,Chewing Food Allergy No Skin Integrity/Comment Surgical wounds. Current % PO Other Minimum of two criteria No #1 Nutrition Diagnosis Inadequate oral intake Diagnosis Progress(for reassessment Continues documentation) Is patient on ventilator? Yes Is Patient Ambulatory and/or Out of Bed No REE-([facility]-confined to bed) 1445.880 Calculation Used for Recommendations 65-70% energy needs Additional Notes Energy needs: 1,280-1,379 Kcal /day. Protein: 2 g/Kg IBW; 127 g/day . Fluids: 1 ml/Kcal, or as per MD. Nutrition Intervention Nutrition Support: Continue TPN @ 83.33ml/hr: MVI , thiamine, 5% dextrose, 4.3% amino acids, 0mEq Na, 80mEq K, 0mEq Mg, 10mEq Ca, 40mmol Phos, 0% chloride/100% acetate . Osmolality: 765. Kcal 680 Protein (gm) 85 Carbohydrates (gm) 100 Fat (gm) 0 Fluid (mL) 2,000 Fiber (gm) 0 % RDI: 53% Kcal; 67% AA. Goal #1 Provide at least 75% of energy /protein needs through Enteral Feeding during LOS. Goal #2 Maintain body weight within +/ -3% of admission body weight during LOS. Follow-Up By: 06/19/21 Additional Comments Continue monitoring TPN tolerance and BM, ventilation and HD status. BMP, Phos, and Mg labs ordered .
[2021-06-18] MEDS: INSULIN GLARGINE 100 UNITS/ML SUB-Q SCH ×2 (11:25→21:46)
--- NOTE | 2021-06-18 14:12 | Progress Note ---
Assessment and Plan Cultures: 06/12/2021 blood cultures: no growth A/P: 76-year-old female with diabetes, hypertension, gout was admitted to the hospital on 06/11/2021 with swelling of the submandibular region, tongue and difficulty breathing, labs also revealed severe coagulopathy due to Coumadin. 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 Shock resolved. #Acute respiratory failure: on the vent #Right-sided pneumothorax: s/p chest tube. #Diabetes mellitus, uncontrolled #Coagulopathy: Secondary to Coumadin. #Acute blood loss anemia Recs: -continue IV Zosyn 4.5 gm q6 hrs -guarded prognosis -awaiting transfer to [facility] for ENT joleneal Silvana Barros MD, FACP, [facility] O: [phone] F: [phone] Subjective Date of service: 06/18/21 Interval history: Sedated, remains on the vent, remains off pressors. Afebrile. Objective - Exam Narrative Exam: Physical Exam: Constitutional: sedated, intubated, on the vent Head, Ears, Nose: Normocephalic, atraumatic. External ears, nose normal Eyes: Conjunctivae/corneas clear. No icterus. No ptosis. Oral: intubated Cardiovascular: S1, S2 + Respiratory: AE reduced, right-sided chest tube. SubQ emphysema + GI: Soft, bowel sounds + Musculoskeletal: No pedal edema, no cyanosis. Skin: No rash or abscess Hem/Lymphatic: No palpable cervical or supraclavicular nodes. No lymphangitis Psych: no agitation Neurological: sedated, intubated, on the vent, exam limited - Constitutional Vitals: Vital Signs Temp Pulse Resp BP Pulse Ox 97.5 F L 64 14 142/75 97 06/18/21 12:00 06/18/21 12:00 06/18/21 12:00 06/18/21 12:00 06/18/21 12:00 Temperature -Last 24 Hours Temperature 97.5 F Temperature 98.2 F Temperature 97.5 F Temperature 98.3 F Temperature 98.8 F Temperature 98.5 F Temperature 97.4 F - Labs CBC & Chem 7: 06/18/21 04:37 06/18/21 04:37 Labs: Abnormal lab results 06/17/21 06/17/21 06/17/21 Range/Units 17:43 21:42 23:59 RBC (3.65-5.03) M/mm3 Hgb (10.1-14.3) gm/dl Hct (30.3-42.9) % MCH (28-32) pg RDW (13.2-15.2) % ABG pH (7.350-7.450) pH Units ABG pO2 (80.0-90.0) mm Hg ABG Base Excess (-2.0-3.0) mmol/L ABG Hemoglobin (12.0-16.0) gm/dl Sodium (137-145) mmol/L Chloride (98-107) mmol/L BUN (7-17) mg/dL Creatinine (0.6-1.2) mg/dL Glucose (65-100) mg/dL POC Glucose 307 H 286 H 264 H (70-105) mg/dL Calcium (8.4-10.2) mg/dL 06/18/21 06/18/21 06/18/21 Range/Units 04:20 04:37 04:37 RBC 3.53 L (3.65-5.03) M/mm3 Hgb 9.1 L (10.1-14.3) gm/dl Hct 28.7 L (30.3-42.9) % MCH 26 L (28-32) pg RDW 21.3 H (13.2-15.2) % ABG pH 7.495 H (7.350-7.450) pH Units ABG pO2 108.3 H (80.0-90.0) mm Hg ABG Base Excess -2.1 L (-2.0-3.0) mmol/L ABG Hemoglobin 10.0 L (12.0-16.0) gm/dl Sodium 148 H (137-145) mmol/L Chloride 114.7 H (98-107) mmol/L BUN 59 H (7-17) mg/dL Creatinine 1.3 H (0.6-1.2) mg/dL Glucose 329 H (65-100) mg/dL POC Glucose (70-105) mg/dL Calcium 8.1 L (8.4-10.2) mg/dL 06/18/21 06/18/21 Range/Units 05:32 11:21 RBC (3.65-5.03) M/mm3 Hgb (10.1-14.3) gm/dl Hct (30.3-42.9) % MCH (28-32) pg RDW (13.2-15.2) % ABG pH (7.350-7.450) pH Units ABG pO2 (80.0-90.0) mm Hg ABG Base Excess (-2.0-3.0) mmol/L ABG Hemoglobin (12.0-16.0) gm/dl Sodium (137-145) mmol/L Chloride (98-107) mmol/L BUN (7-17) mg/dL Creatinine (0.6-1.2) mg/dL Glucose (65-100) mg/dL POC Glucose 293 H 291 H (70-105) mg/dL Calcium (8.4-10.2) mg/dL
[2021-06-18] MEDS ORDERED: TOTAL PARENTERAL NUTRITION 1,999.92 ML IV SCH (20:00)
[2021-06-19] MEDS: MIDAZOLAM/NS Drip 100mg/100ml 100 MG/100 ML BAG IV SCH (00:13)
[2021-06-19] MEDS: INSULIN LISPRO 100 UNIT/ML SUB-Q SCH ×4 (00:21→19:09)
[2021-06-19] MEDS: fentaNYL DRIP Premix 2,000 MCG/100 ML BAG IV SCH ×5 (02:05→21:19)
[2021-06-19] MEDS ORDERED: SODIUM CHLORIDE 0.9% 500 ML 500 ML ONE (02:17)
[2021-06-19] MEDS: hydrALAZINE 20 MG/1 ML INJ IV PRN (03:02)
[2021-06-19] MEDS: NORepinephrine/NS 8 MG-250 ML 8 MG/250 ML INFUS..BTL IV SCH (04:19)
[2021-06-19] MEDS: methylPREDNISolone Sod Succinate 125 MG/2 ML INJ IV SCH ×3 (05:18→21:18)
[2021-06-19] MEDS: PIPERACILLIN/TAZOBACTAM 3.375 3.375 GM/50 ML BAG IV SCH (05:18)
[2021-06-19 05:30] LABS: ABG Base Excess -3.2 mmol/L (-2.0-3.0); ABG HCO3 21.2 mmol/L (20.0-26.0); ABG Methemoglobin 0.5 % (0.0-1.5); ABG PH 7.401 pH Units (7.350-7.450); ABG PO2 78.9 mm Hg (80.0-90.0)
--- NOTE | 2021-06-19 05:41 | XRay Report ---
CHEST 1 VIEW INDICATION / CLINICAL INFORMATION: desaturation. COMPARISON: Chest x-ray 06/17/2021 FINDINGS: SUPPORT DEVICES: Endotracheal tube terminates above the devin. Left-sided chest tube stable. HEART / MEDIASTINUM: No significant abnormality. LUNGS / PLEURA: No significant change in bilateral lower lung opacities. No large pneumothorax. ADDITIONAL FINDINGS: Diffuse subcutaneous emphysema and minimal pneumomediastinum stable or decreased in amount. IMPRESSION: 1. . Stable chest suggests minimal change. Persistent bibasilar atelectasis and/or evidence of infect ion. Signer Name: Raza Alfonso II, MD Signed: 06/19/2021 5:36 AM Workstation Name: [id number]
[2021-06-19 06:21] LABS: Calcium 8.1 mg/dL (8.4-10.2)
[2021-06-19 06:30] LABS: Hematocrit 29.1 % (30.3-42.9); Hemoglobin 9.1 gm/dl (10.1-14.3); Mean Corpuscular HGB Conc 31 % (30-34); Mean Corpuscular Volume 80 fl (79-97); Platelet Count 204 K/mm3 (140-440); Red Blood Count 3.64 M/mm3 (3.65-5.03)
[2021-06-19 06:32] LABS: Red Cell Distribution Width 21.5 % (13.2-15.2)
[2021-06-19] MEDS: FAMOTIDINE 20 MG/2 ML INJ IV SCH ×2 (09:59→21:18)
[2021-06-19] MEDS ORDERED: SENNOSIDES ORAL LIQD 8.8 MG/5 ML ORAL LIQD PO SCH (10:00)
[2021-06-19] MEDS ORDERED: DOCUSATE SODIUM 100 MG/10 ML ORAL LIQD PO SCH (10:00)
[2021-06-19] MEDS: INSULIN GLARGINE 100 UNITS/ML SUB-Q SCH ×2 (10:10→21:19)
--- NOTE | 2021-06-19 11:39 | Progress Note ---
<VIOLETTE DEMPSEY - Last Filed: 06/19/21 18:24> Assessment and Plan Assessment and plan: This is a 76-year-old female with HTN, Coumadin use , dental caries, PVD s/p stenting right leg, DM, arthritis, depression, gout, and ? Pulmonary hypertension who presented to emergency department on 06/11 with complaints of pain to mandible area and throat and swelling. Work-up in the emergency department included CT scan of the head and neck which showed findings consistent with Jeremiah's angina and anesthesia was called for intubation. Anesthesia intubation attempts were unsuccessful and surgery was consulted for cricothyroidotomy which was unsuccessful in the emergency department and patient was taken to the OR for tracheostomy. Intubation procedure was complicated by development of pneumothorax and excessive bleeding due to supratherapeutic INR s/p multiple FFP's and vitamin K. Remains intubated and sedated in the ICU. Hospital course to date: 06/12: Patient received additional 2 units FFP and 1 unit PRBC and vitamin K today. Overnight critical care placed a femoral CVL. Patient sedated on fe ntanyl, propofol and Versed. Currently on Fabian-Synephrine and Levophed for blood pressure maintenance. Remains amatory support. Infectious disease consulted. Started on sliding scale insulin and recultured. COVID-19 PCR pending. Surgery at bedside to place chest tube. 06/13: Patient was taken back to the OR today for exchange cricothyroid to possible tracheostomy. Patient returned with ETT. Chest tube was changed to larger size in the OR. Patient was hypotensive, tachycardic, hypoxic in the OR and received hespan, albumin and an A-line. Upon arrival patient was increased to max dose Levophed for hypotension which has resolved. Titrating vasopressors as tolerated. Remains on sedation with 3 agents. Apparently patient was not ventilating her left lung Intra-Op. Noted to have subcu hematoma and trauma to postpharyngeal area. Questionable decrease cardiac wall motion noted in OR-> w ill order echocardiogram to further investigate. Patient received additional PRBC today. DIC panel resulted as normal. Patient BUN/creatinine did increase as well as noted to have lactic acidosis. May need IV bolus in addition to pressor use. Likely bronc with Pulmicort today as repeat CXR showed right possible pneumo hydrothorax 06/14: Antibiotics changed to Zosyn per ID, surgical packing removed from neck and makeshift [place] drain placed by surgery and old chronic thyroidectomy site. CXR was completed and RN heard gurgling and blood was noted on dressing. ST elevation noted on bedside monitor and patient was hypoxic. FiO2 increased to 100%. However shortly after patient lost her pulse and ACLS was initiated. Patient received 3 rounds of epinephrine and ROSC was achieved. Stat portable CXR showed resolution of lower lobe collapse on the left and stable right-sided chest tube with hemothorax. CCM updated family. Patient H/H noted to be 7.2/23.2 and did RN to transfuse prepared PRBC which [facility] blood bank. Bedside echo completed. 06/15: Off sedation, intermittently follows commands, remains on the prednisone. Surgery will reassess airway on Thursday to see if any further support is required. Urine studies indicate prerenal, given IV bolus and started on Clinimix today. 06/16: Patient restarted on fentanyl drip due to hypertension. Given more LR due to CR improvement post LR yesterday. Patient started on Lantus subcu after given one-time dose of Lantus. PICC placed today. Patient had a CT chest today which showed no mediasinusitis but extensive subcutaneous air. 06/17: General Surgery recommended transferring patient to a ENT specialized facility. Placed a call to [facility], spoke with the waste examiner, Dr. Duckworth, who stated that a transfer is possible as long their ENT team accept the patient. Awaiting on a final response. Continue current supportive measures. Basal insulin adjusted for hyperglycemia. 06/18: JEREMIAS overnight. Hypertensive this am, PRN Hydralazine for SBP greater than 160. Remains hyperglycemic, patient is on IV steroids and TPN, basal insulin adjusted. Plan for possible transfer to [facility] once an ICU bed is available. 06/19: Low SPO2 and hypotension overnight required Levophed for a short time. Overnight CXR noted with no significant changed. Patient is stable this am and off pressors. Plan for possible Trach and PEG today by General Surgery. Neuro: Sedated, h/o depression, arthritis -Sedated propofol, fentanyl, and versed gtt -RASS goal -4 to -5 -Avoid delirium -Reorientation as needed -Maintain sleep-wake cycle Cardiac: S/p cardiac arrest, h/o htn, PVD s/p stenting Right leg -06/14 cardiac arrest with ROSC -S/p vasopressor support with Levophed and Fabian-Synephrine -Blood pressure monitoring per protocol -Pressure monitoring via A-line -06/13 Echocardiogram EF 65-70% Respiratory: Acute hypoxic respiratory failure, right pneumothorax -CCM consulted, appreciate recommendations -S/p emergent cricothyroid with surgery with 8.00 ETT -A.m. vent settings:PRVC-30%,6,18,450 -A.m. ABG and CXR noted -Right chest tube replaced by surgery -CT to wall suction -Changed to larger bore on 06/13 -Postop CXR shows possible hydropneumothorax on right side -06/13 bronchoscopy showed possible blood clot in left lung which may be acting as mucous plug however it was left in place due to possible bleeding inside lung if removed. -CXR post cardiac arrest shows clearance of mucous plug -06/16 CT chest shows moderate right pneumothorax with collapse of right upper lobe, right thoracostomy tube terminates at the collapsed right upper lobe, bilateral bronchus opacities compatible with infectious/inflammatory etiology, bilateral small pleural effusion, extensive subcutaneous air, small fluid collection in the anterior mediastinum is nonspecific -VAP bundle -SPO2 monitoring -Possible trach and Peg by Gen surgery : Acute kidney injury possibly secondary to vasomotor nephropathy hypernatremia -Strict intake and output -Renally dose medications -Avoid nephrotoxic medications -Daily weights -Consider nephrology consult if worsens -Trend BMP ID: 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 dental caries -CT neck with contrast showed a significant right floor of mild swelling with extension into the submandibular and submental spaces, significant thickening an d inflammation involving the right pharyngeal wall, with the parapharyngeal and retropharyngeal spaces at the level of the thyroid cartilage, epiglottis significantly swollen and so are the aryepiglottic folds resulting in significant airway narrowing at this level, no lymphadenopathy, symmetric sub mandibular and parathyroid glands, S few scattered caries but no periapical lucencies, nonspecific calcification along the right lateral oropharynx, no definite stone seen within the territory of the submandibular gland ducts, no suspicious rashes lesion -Infectious disease and general surgery consulted, appreciate recommendations -s/p cricothyroidectomy -Will follow surgery to direction and treatment of injury -Per surgery may have mucosal injury -Intra-Op findings include post pharyngeal swelling and bruising -Solu-Medrol 125 every 8 -Antibiotic therapy Zosyn -COVID-19 PCR negative -f/u blood culture -Monitor WBC and temperature curve -s/p 5L normal saline bolus in ED, 6 L LR bolus in ICU - repeat LR bolus today Heme: Coagulopathy, supratherapeutic INR, acute blood loss anemiq, possible component of hemorrhagic shock -Patient is on Coumadin at home -S/p 5 FFP, 7 PRBC, vitamin K x3 -Trend CBC -Presented with H/H of 10.3/34.6 and decreased to 6.7/22.4 -INR 8.18-> 4.55-> 2.1-> 1.23-> 1.16-> 1.31 -Monitor INR -Transfuse hemoglobin less than 7 -Monitor for signs of bleeding -SCDs to BLE while in bed -Avoid chemical anticoagulation in setting of recent blood loss anemia Endo: Hyperglycemia, h/o DM, gout -Patient is on TPN -Continue high dose SSI Q6hrs -Lantus adjusted BID -Avoid hypoglycemia The high probability of a clinically significant, sudden or life threatening deterioration of the [multi] system(s) required my full and direct attention, intervention and personal management. The aggregate critical care time was [60] minutes. This time is in addition to time spent performing reported procedures but includes the following: [x] Data Review and interpretation [x] Patient assessment and monitoring of vital signs [x] Documentation [x] Medication orders and management Disposition Plan: ICU Total Time Spent with Patient (Minutes): 60 History Interval history: Patient seen and examined at the bedside. Intubated and Sedated on propofol, fentanyl, and versed RASS -4. Still on TPN. Per RN, patient dropped SPO2 and went hypotensive overnight required low dose pressors. Patient is stable this am, pressor is off. Hospitalist Physical - Constitutional Vitals: Temp Pulse Resp BP Pulse Ox 97.9 F 48 L 18 143/60 93 06/19/21 07:18 06/19/21 11:31 06/19/21 09:31 06/19/21 11:31 06/19/21 11:31 General appearance: Present: no acute distress, obese, other (Intubated and sedated) - EENT Eyes: Present: PERRL - Respiratory Respiratory effort: normal Respiratory: bilateral: rhonchi - Cardiovascular Rhythm: regular Heart Sounds: Present: S1 & S2 - Extremities Extremities: no ischemia, pulses intact, pulses symmetrical Extremity abnormal: edema - Peripheral Assessment Generalized Edema Type: Pitting Edema Degree: 2+ Capillary Refill: < 3 seconds Skin Temperature: Warm Peripheral Pulses: within normal limits - Abdominal General gastrointestinal: soft, non-distended, hypoactive bowel sounds - Integumentary Integumentary: Present: warm, dry - Psychiatric Psychiatric: other (Intubated and sedated) - Neurologic Neurologic: other (Intubated and sedated) - Allied Health Allied health notes reviewed: nursing HEART Score - HEART Score Troponin: Troponin T < 0.010 ng/mL (0.00-0.029) 06/11/21 23:21 Results - Labs CBC & Chem 7: 06/19/21 04:00 06/19/21 04:00 Labs: Laboratory Last Values WBC 8.8 K/mm3 (4.5-11.0) 06/19/21 04:00 RBC 3.64 M/mm3 (3.65-5.03) L 06/19/21 04:00 Hgb 9.1 gm/dl (10.1-14.3) L 06/19/21 04:00 Hct 29.1 % (30.3-42.9) L 06/19/21 04:00 MCV 80 fl (79-97) 06/19/21 04:00 MCH 25 pg (28-32) L 06/19/21 04:00 MCHC 31 % (30-34) 06/19/21 04:00 RDW 21.5 % (13.2-15.2) H 06/19/21 04:00 Plt Count 204 K/mm3 (140-440) 06/19/21 04:00 Lymph % (Auto) 9.2 % (13.4-35.0) L 06/11/21 19:29 [place] % (Auto) 1.4 % (0.0-7.3) 06/11/21 19:29 Eos % (Auto) 0.2 % (0.0-4.3) 06/11/21 19:29 Baso % (Auto) 0.2 % (0.0-1.8) 06/11/21 19: Lymph # (Auto) 1.4 K/mm3 (1.2-5.4) 06/11/21 19:29 [place] # (Auto) 0.2 K/mm3 (0.0-0.8) 06/11/21 19: Eos # (Auto) 0.0 K/mm3 (0.0-0.4) 06/11/21 19: Baso # (Auto) 0.0 K/mm3 (0.0-0.1) 06/11/21 19: Add Manual Diff Complete 06/13/21 Unknown Total Counted 100 06/13/21 Unknown Seg Neutrophils % 89.0 % (40.0-70.0) H 06/11/21 19: Seg Neuts % (Manual) 88.0 % (40.0-70.0) H 06/13/21 Unknown Band Neutrophils % 2.0 % 06/13/21 Unknown Lymphocytes % (Manual) 4.0 % (13.4-35.0) L 06/13/21 Unknown Reactive Lymphs % (Man) 0 % 06/13/21 Unknown Monocytes % (Manual) 6.0 % (0.0-7.3) 06/13/21 Unknown Eosinophils % (Manual) 0 % (0.0-4.3) 06/13/21 Unknown Basophils % (Manual) 0 % (0.0-1.8) 06/13/21 Unknown Metamyelocytes % 0 % 06/13/21 Unknown Myelocytes % 0 % 06/13/21 Unknown Promyelocytes % 0 % 06/13/21 Unknown Blast Cells % 0 % 06/13/21 Unknown Nucleated RBC % Not Reportable 06/13/21 Unknown Seg Neutrophils # 14.0 K/mm3 (1.8-7.7) H 06/11/21 19:29 Seg Neutrophils # Man 19.8 K/mm3 (1.8-7.7) H 06/13/21 Unknown Band Neutrophils # 0.5 K/mm3 06/13/21 Unknown Lymphocytes # (Manual) 0.9 K/mm3 (1.2-5.4) L 06/13/21 Unknown Abs React Lymphs (Man) 0.0 K/mm3 06/13/21 Unknown Monocytes # (Manual) 1.4 K/mm3 (0.0-0.8) H 06/13/21 Unknown Eosinophils # (Manual) 0.0 K/mm3 (0.0-0.4) 06/13/21 Unknown Basophils # (Manual) 0.0 K/mm3 (0.0-0.1) 06/13/21 Unknown Metamyelocytes # 0.0 K/mm3 06/13/21 Unknown Myelocytes # 0.0 K/mm3 06/13/21 Unknown Promyelocytes # 0.0 K/mm3 06/13/21 Unknown Blast Cells # 0.0 K/mm3 06/13/21 Unknown WBC Morphology Not Reportable 06/13/21 Unknown Hypersegmented Neuts Not Reportable 06/13/21 Unknown Hyposegmented Neuts Not Reportable 06/13/21 Unknown Hypogranular Neuts Not Reportable 06/13/21 Unknown Smudge Cells Not Reportable 06/13/21 Unknown Toxic Granulation 2+ 06/13/21 Unknown Toxic Vacuolation Not Reportable 06/13/21 Unknown Dohle Bodies Not Reportable 06/13/21 Unknown Pelger-Huet Anomaly Not Reportable 06/13/21 Unknown Dennis Rods Not Reportable 06/13/21 Unknown Platelet Estimate Consistent w auto 06/13/21 Unknown Clumped Platelets Not Reportable 06/13/21 Unknown Plt Clumps, EDTA Not Reportable 06/13/21 Unknown Large Platelets Not Reportable 06/13/21 Unknown Giant Platelets Not Reportable 06/13/21 Unknown Platelet Satelliting Not Reportable 06/13/21 Unknown Plt Morphology Comment Not Reportable 06/13/21 Unknown RBC Morphology Not Reportable 06/13/21 Unknown Dimorphic RBCs Not Reportable 06/13/21 Unknown Polychromasia Few 06/13/21 Unknown Hypochromasia 2+ 06/13/21 Unknown Poikilocytosis Not Reportable 06/13/21 Unknown Anisocytosis 1+ 06/13/21 Unknown Microcytosis Not Reportable 06/13/21 Unknown Macrocytosis Not Reportable 06/13/21 Unknown Spherocytes Not Reportable 06/13/21 Unknown Pappenheimer Bodies Not Reportable 06/13/21 Unknown Sickle Cells Not Reportable 06/13/21 Unknown Target Cells Not Reportable 06/13/21 Unknown Tear Drop Cells Not Reportable 06/13/21 Unknown Ovalocytes Not Reportable 06/13/21 Unknown Stomatocytes Few 06/12/21 01:45 Helmet Cells Not Reportable 06/13/21 Unknown [place] Bodies Not Reportable 06/13/21 Unknown [place] Rings Not Reportable 06/13/21 Unknown [place] Cells Not Reportable 06/13/21 Unknown Bite Cells Not Reportable 06/13/21 Unknown Crenated Cell Not Reportable 06/13/21 Unknown Elliptocytes Not Reportable 06/13/21 Unknown Acanthocytes (Spur) Not Reportable 06/13/21 Unknown Rouleaux Not Reportable 06/13/21 Unknown Hemoglobin C Crystals Not Reportable 06/13/21 Unknown Schistocytes Not Reportable 06/13/21 Unknown Malaria parasites Not Reportable 06/13/21 Unknown Edin Bodies Not Reportable 06/13/21 Unknown Hem Pathologist Commnt No 06/13/21 Unknown PT 17.6 Sec. (12.2-14.9) H 06/13/21 Unknown INR 1.31 (0.87-1.13) H 06/13/21 Unknown APTT 26.4 Sec. (24.2-36.6) 06/13/21 Unknown Fibrinogen 546 mg/dl (211-480) H 06/13/21 Unknown D-Dimer 1244.63 ng/mlDDU (0-234) H 06/13/21 Unknown ABG pH 7.401 pH Units (7.350-7.450) 06/19/21 04:50 POC ABG pCO2 25.6 mmHg (32.0-48.0) L 06/13/21 04:31 ABG pCO2 35.0 mm Hg 06/19/21 04:50 POC ABG pO2 138.8 mmHg (83-108) H 06/13/21 04:31 ABG pO2 78.9 mm Hg (80.0-90.0) L 06/19/21 04:50 POC ABG HCO3 21.4 06/13/21 04:31 ABG HCO3 21.2 mmol/L (20.0-26.0) 06/19/21 04:50 ABG O2 Saturation 97.0 % (95.0-99.0) 06/19/21 04:50 ABG O2 Content 10.2 (0.0-44) 06/19/21 04:50 POC ABG Base Excess -0.7 06/13/21 04:31 ABG Base Excess -3.2 mmol/L (-2.0-3.0) L 06/19/21 04:50 ABG Hemoglobin 7.6 gm/dl (12.0-16.0) L 06/19/21 04:50 ABG Oxyhemoglobin 98.1 (94-98) H 06/13/21 04:31 ABG Carboxyhemoglobin 1.3 % (0.0-5.0) 06/19/21 04:50 ABG Methemoglobin 0.5 % (0.0-1.5) 06/19/21 04:50 Oxyhemoglobin 95.3 % (95.0-99.0) 06/19/21 04:50 Carboxyhemoglobin 0.8 (0.5-1.5) 06/13/21 04:31 FiO2 30 % 06/19/21 04:50 FiO2 % 40.0 06/13/21 04:31 Sodium 148 mmol/L (137-145) H 06/19/21 04:00 Potassium 4.0 mmol/L (3.6-5.0) 06/19/21 04:00 Chloride 114.9 mmol/L (98-107) H 06/19/21 04:00 Carbon Dioxide 19 mmol/L (22-30) L 06/19/21 04:00 Anion Gap 18 mmol/L 06/19/21 04:00 BUN 59 mg/dL (7-17) H 06/19/21 04:00 Creatinine 1.2 mg/dL (0.6-1.2) 06/19/21 04:00 Estimated GFR 53 ml/min 06/19/21 04:00 BUN/Creatinine Ratio 49 % 06/19/21 04:00 Glucose 345 mg/dL (65-100) H 06/19/21 04:00 POC Glucose 275 mg/dL (70-105) H 06/19/21 11:11 Lactic Acid 5.30 mmol/L (0.7-2.0) H* 06/13/21 15:45 Calcium 8.1 mg/dL (8.4-10.2) L 06/19/21 04:00 Phosphorus 4.60 mg/dL (2.5-4.5) H D 06/19/21 04:00 Magnesium 2.40 mg/dL (1.7-2.3) H 06/19/21 04:00 Total Bilirubin 0.40 mg/dL (0.1-1.2) 06/15/21 03:56 AST 64 units/L (5-40) H 06/15/21 03:56 ALT 106 units/L (7-56) H 06/15/21 03:56 Alkaline Phosphatase 55 units/L (35-129) 06/15/21 03:56 Troponin T < 0.010 ng/mL (0.00-0.029) 06/11/21 23:21 C-Reactive Protein 3.30 mg/dL (0.00-1.30) H 06/16/21 04:32 Total Protein 5.1 g/dL (6.3-8.2) L 06/15/21 03:56 Albumin 2.9 g/dL (3.9-5) L 06/15/21 03:56 Albumin/Globulin Ratio 1.3 % 06/15/21 03:56 Triglycerides 189 mg/dL (2-149) H 06/14/21 06:15 Urine Color Yellow (Yellow) 06/12/21 17:00 Urine Turbidity Clear (Clear) 06/12/21 17:00 Urine pH 5.0 (5.0-7.0) 06/12/21 17:00 Ur Specific [place] 1.035 (1.003-1.030) H 06/12/21 17:00 Urine Protein 30 mg/dl mg/dL (Negative) 06/12/21 17:00 Urine Glucose (UA) 50 mg/dL (Negative) 06/12/21 17:00 Urine Ketones Tr mg/dL (Negative) 06/12/21 17:00 Urine Blood Neg (Negative) 06/12/21 17:00 Urine Nitrite Neg (Negative) 06/12/21 17:00 Urine Bilirubin Neg (Negative) 06/12/21 17:00 Urine Urobilinogen < 2.0 mg/dL (<2.0) 06/12/21 17:00 Ur Leukocyte Esterase Neg (Negative) 06/12/21 17:00 Urine WBC (Auto) < 1.0 /HPF (0.0-6.0) 06/12/21 17:00 Urine RBC (Auto) < 1.0 /HPF (0.0-6.0) 06/12/21 17:00 Urine Creatinine 81.1 mg/dL (0.1-20.0) H 06/15/21 10:40 Urine Sodium 42 mmol/L 06/15/21 10:40 Coronavirus (PCR) Negative (Negative) 06/12/21 09:50 Blood Type O POSITIVE 06/11/21 19:20 Antibody Screen Negative 06/11/21 19:20 Crossmatch See Detail 06/11/21 19:20 Lujan/IV: Voiding Method Indwelling Catheter Active Medications - Current Medications Current Medications: Generic Name Dose Route Start Last Admin Trade Name Freq PRN Reason Stop Dose Admin Famotidine 10 mg 06/15/21 22:00 06/19/21 09:59 Famotidine 20 Mg/2 Ml Inj IV 10 mg BID JOLENE Administration Fentanyl 50 mcg 06/11/21 22:55 06/15/21 16:50 Fentanyl 100 Mcg/2 Ml Inj IV 50 mcg Q10MIN PRN Administration ANALGESIA Hydralazine HCl 10 mg 06/16/21 08:00 06/19/21 03:02 Hydralazine 20 Mg/1 Ml Inj IV 10 mg Q4H PRN Administration Hypertension Hydromorphone HCl 0.5 mg 06/11/21 20:42 Hydromorphone 1 Mg/1 Ml Inj IV Q3H PRN Pain , Severe (7-10) MIDAZOLAM/NS Drip 100mg/100ml 100 mg in 100 mls @ 1 mls/hr 06/11/21 23:00 06/19/21 00:13 Midazolam/Ns Drip 100mg/100ml IV 3 mg/hr TITR JOLENE 3 mls/hr Administration Protocol 1 MG/HR Fentanyl Citrate 2,000 mcg in 100 mls @ 5.466 mls/hr 06/11/21 23:00 06/19/21 06:44 Fentanyl Drip Premix IV 4 mcg/kg/hr TITR JOLENE 21.863 mls/hr Administration Protocol 1 MCG/KG/HR Phenylephrine HCl 100 mg/ 100 mls @ 3 mls/hr 06/11/21 23:45 06/14/21 07:00 Sodium Chloride IV 0 mcg/min TITR JOLENE 0 mls/hr Titration Protocol 50 MCG/MIN NORepinephrine/NS 8 MG-250 ML 8 mg in 250 mls @ 3.75 mls/hr 06/12/21 02:00 06/19/21 04:59 Norepinephrine/Ns 8 Mg-250 Ml (Double Conc) IV 0 mcg/min TITRATE JOLENE 0 mls/hr Titration Protocol 2 MCG/MIN Propofol 1,000 mg in 100 mls @ 3.279 mls/hr 06/12/21 03:00 06/19/21 06:44 Diprivan 10 Mg/Ml IV 30 mcg/kg/min TITR JOLENE 19.677 mls/hr Administration Protocol 5 MCG/KG/MIN Amino Acids/Electrolytes/Dextrose 1,999.92 mls @ 83.33 mls/hr 06/18/21 20:00 06/18/21 21:03 Tpn Adult IV 06/19/21 19:59 83.33 mls/hr DAILY@2000 JOLENE Administration Protocol Piperacillin Sod/Tazobactam Sod 4.5 gm in 100 mls @ 200 mls/hr 06/19/21 12:00 Zosyn/Ns 4.5gm/100ml IV Q6HR [facility] Protocol Insulin Glargine 25 units 06/19/21 10:00 06/19/21 10:10 Insulin Glargine 100 Units/Ml SUB-Q 25 units BID JOLENE Administration Insulin Human Lispro 0 unit 06/12/21 12:00 06/19/21 06:43 Insulin Lispro 100 Unit/Ml SUB-Q 6 unit Q6HR JOLENE Administration Protocol Methylprednisolone Sodium Succinate 125 mg 06/11/21 22:00 06/19/21 05:18 Methylprednisolone Sod Succinate 125 Mg/2 Ml Inj IV 125 mg Q8HR JOLENE Administration Metoclopramide HCl 10 mg 06/11/21 20:42 Metoclopramide 10 Mg/2 Ml Inj IV Q6H PRN Nausea And Vomiting Ondansetron HCl 4 mg 06/11/21 20:42 Ondansetron 4 Mg/2 Ml Inj IV Q3H PRN Nausea And Vomiting Sodium Chloride 10 ml 06/11/21 22:00 06/19/21 09:59 Sodium Chloride 0.9% 10 Ml Flush Syringe IV 10 ml BID JOLENE Administration Sodium Chloride 10 ml 06/11/21 20:42 Sodium Chloride 0.9% 10 Ml Flush Syringe IV PRN PRN LINE FLUSH Nutrition/Malnutrition Assess - Dietary Evaluation Nutrition/Malnutrition Findings: Nutrition Notes Start: 06/16/21 12:10 Freq: Status: Active Protocol: Document 06/18/21 10:58 CANDIDO (Rec: 06/18/21 11:49 CANDIDO [id number]) Nutrition Notes Initial or Follow up Reassessment Current Diagnosis Decubitus(Pressure Ulcer), Sepsis,Hypertension, Respiratory Failure Other Pertinent Diagnosis Jeremiah's Angina, (R) Pneumothorax, Coagulopathy, Cardiac Arrest, Gout... Current Diet PPN (since 06/16), TPN @ 83. 33ml/hr (since 06/17). Labs/Tests 06/18: Na 148, Cl 114.7, BUN 59, Crea 1.3, Glu 329. Pertinent Medications 06/18: Insulin, Propofol 1000 mg in 100 ml @ 32.795 ml/hr ( 866 Kcal), others nutritionally unremarkable. Height 5 ft 8 in Weight 109.316 kg [place] Body Weight (kg) 63.63 BMI 36.6 Weight change and time frame No body weight change reported . Weight Status Obese Subjective/Other Information RD consult for routine F/u on TPN advancement. Femoral PICC line well tolerated, according to RN notes. Pt continues on mechanical ventilation. No report on HD at the time. Pt accepted to be transferred to [facility] for ENT evaluation, but no beds available at the time according to Progress notes. Percent of energy/protein needs met: Prescribed TPN @ 83.33ml/hr provides for energy/protein needs (680 Kcal/85 g) during LOS; additionally, Propofol adds 866 Kcal. A tolat proportion of 100% Kcal and 67 % AA. Burn Absent Trauma Absent GI Symptoms Other Difficulty In Swallowing,Chewing Food Allergy No Skin Integrity/Comment Surgical wounds. Current % PO Other Minimum of two criteria No #1 Nutrition Diagnosis Inadequate oral intake Diagnosis Progress(for reassessment Continues documentation) Is patient on ventilator? Yes Is Patient Ambulatory and/or Out of Bed No REE-([facility]-confined to bed) [phone] Calculation Used for Recommendations 65-70% energy needs Additional Notes Energy needs: 1,280-1,379 Kcal /day. Protein: 2 g/Kg IBW; 127 g/day . Fluids: 1 ml/Kcal, or as per MD. Nutrition Intervention Nutrition Support: Continue TPN @ 83.33ml/hr: MVI , thiamine, 5% dextrose, 4.3% amino acids, 0mEq Na, 80mEq K, 0mEq Mg, 10mEq Ca, 40mmol Phos, 0% chloride/100% acetate . Osmolality: 765. Kcal 680 Protein (gm) 85 Carbohydrates (gm) 100 Fat (gm) 0 Fluid (mL) 2,000 Fiber (gm) 0 % RDI: 53% Kcal; 67% AA. Goal #1 Provide at least 75% of energy /protein needs through Enteral Feeding during LOS. Goal #2 Maintain body weight within +/ -3% of admission body weight during LOS. Follow-Up By: 06/19/21 Additional Comments Continue monitoring TPN tolerance and BM, ventilation and HD status. BMP, Phos, and Mg labs ordered . <MIKE CORTEZ - Last Filed: 06/20/21 08:05> Assessment and Plan Assessment and plan: I saw and evaluated the patient. I agree with the findings and the plan of care as documented in the Nurse Practitioner's~note, with the following corrections and additions. Hospitalist Physical - Constitutional Vitals: Temp Pulse Resp BP Pulse Ox 98.1 F 83 20 134/63 100 06/20/21 07:48 06/20/21 08:00 06/20/21 08:00 06/20/21 08:00 06/20/21 08:00 HEART Score - HEART Score Troponin: Troponin T < 0.010 ng/mL (0.00-0.029) 06/11/21 23:21 Results - Labs CBC & Chem 7: 06/20/21 04:33 06/20/21 04:33 Labs: Laboratory Last Values WBC 22.3 K/mm3 (4.5-11.0) H 06/20/21 04:33 RBC 3.31 M/mm3 (3.65-5.03) L 06/20/21 04:33 Hgb 8.5 gm/dl (10.1-14.3) L 06/20/21 04:33 Hct 26.5 % (30.3-42.9) L 06/20/21 04:33 MCV 80 fl (79-97) 06/20/21 04:33 MCH 26 pg (28-32) L 06/20/21 04:33 MCHC 32 % (30-34) 06/20/21 04:33 RDW 21.5 % (13.2-15.2) H 06/20/21 04:33 Plt Count 302 K/mm3 (140-440) 06/20/21 04:33 Lymph % (Auto) 9.2 % (13.4-35.0) L 06/11/21 19:29 [place] % (Auto) 1.4 % (0.0-7.3) 06/11/21 19: Eos % (Auto) 0.2 % (0.0-4.3) 06/11/21 19: Baso % (Auto) 0.2 % (0.0-1.8) 06/11/21 19: Lymph # (Auto) 1.4 K/mm3 (1.2-5.4) 06/11/21 19: [place] # (Auto) 0.2 K/mm3 (0.0-0.8) 06/11/21 19: Eos # (Auto) 0.0 K/mm3 (0.0-0.4) 06/11/21 19: Baso # (Auto) 0.0 K/mm3 (0.0-0.1) 06/11/21 19: Add Manual Diff Complete 06/13/21 Unknown Total Counted 100 06/13/21 Unknown Seg Neutrophils % 89.0 % (40.0-70.0) H 06/11/21 19: Seg Neuts % (Manual) 88.0 % (40.0-70.0) H 06/13/21 Unknown Band Neutrophils % 2.0 % 06/13/21 Unknown Lymphocytes % (Manual) 4.0 % (13.4-35.0) L 06/13/21 Unknown Reactive Lymphs % (Man) 0 % 06/13/21 Unknown Monocytes % (Manual) 6.0 % (0.0-7.3) 06/13/21 Unknown Eosinophils % (Manual) 0 % (0.0-4.3) 06/13/21 Unknown Basophils % (Manual) 0 % (0.0-1.8) 06/13/21 Unknown Metamyelocytes % 0 % 06/13/21 Unknown Myelocytes % 0 % 06/13/21 Unknown Promyelocytes % 0 % 06/13/21 Unknown Blast Cells % 0 % 06/13/21 Unknown Nucleated RBC % Not Reportable 06/13/21 Unknown Seg Neutrophils # 14.0 K/mm3 (1.8-7.7) H 06/11/21 19:29 Seg Neutrophils # Man 19.8 K/mm3 (1.8-7.7) H 06/13/21 Unknown Band Neutrophils # 0.5 K/mm3 06/13/21 Unknown Lymphocytes # (Manual) 0.9 K/mm3 (1.2-5.4) L 06/13/21 Unknown Abs React Lymphs (Man) 0.0 K/mm3 06/13/21 Unknown Monocytes # (Manual) 1.4 K/mm3 (0.0-0.8) H 06/13/21 Unknown Eosinophils # (Manual) 0.0 K/mm3 (0.0-0.4) 06/13/21 Unknown Basophils # (Manual) 0.0 K/mm3 (0.0-0.1) 06/13/21 Unknown Metamyelocytes # 0.0 K/mm3 06/13/21 Unknown Myelocytes # 0.0 K/mm3 06/13/21 Unknown Promyelocytes # 0.0 K/mm3 06/13/21 Unknown Blast Cells # 0.0 K/mm3 06/13/21 Unknown WBC Morphology Not Reportable 06/13/21 Unknown Hypersegmented Neuts Not Reportable 06/13/21 Unknown Hyposegmented Neuts Not Reportable 06/13/21 Unknown Hypogranular Neuts Not Reportable 06/13/21 Unknown Smudge Cells Not Reportable 06/13/21 Unknown Toxic Granulation 2+ 06/13/21 Unknown Toxic Vacuolation Not Reportable 06/13/21 Unknown Dohle Bodies Not Reportable 06/13/21 Unknown Pelger-Huet Anomaly Not Reportable 06/13/21 Unknown Dennis Rods Not Reportable 06/13/21 Unknown Platelet Estimate Consistent w auto 06/13/21 Unknown Clumped Platelets Not Reportable 06/13/21 Unknown Plt Clumps, EDTA Not Reportable 06/13/21 Unknown Large Platelets Not Reportable 06/13/21 Unknown Giant Platelets Not Reportable 06/13/21 Unknown Platelet Satelliting Not Reportable 06/13/21 Unknown Plt Morphology Comment Not Reportable 06/13/21 Unknown RBC Morphology Not Reportable 06/13/21 Unknown Dimorphic RBCs Not Reportable 06/13/21 Unknown Polychromasia Few 06/13/21 Unknown Hypochromasia 2+ 06/13/21 Unknown Poikilocytosis Not Reportable 06/13/21 Unknown Anisocytosis 1+ 06/13/21 Unknown Microcytosis Not Reportable 06/13/21 Unknown Macrocytosis Not Reportable 06/13/21 Unknown Spherocytes Not Reportable 06/13/21 Unknown Pappenheimer Bodies Not Reportable 06/13/21 Unknown Sickle Cells Not Reportable 06/13/21 Unknown Target Cells Not Reportable 06/13/21 Unknown Tear Drop Cells Not Reportable 06/13/21 Unknown Ovalocytes Not Reportable 06/13/21 Unknown Stomatocytes Few 06/12/21 01:45 Helmet Cells Not Reportable 06/13/21 Unknown [place] Bodies Not Reportable 06/13/21 Unknown [place] Rings Not Reportable 06/13/21 Unknown Nelsy Cells Not Reportable 06/13/21 Unknown Bite Cells Not Reportable 06/13/21 Unknown Crenated Cell Not Reportable 06/13/21 Unknown Elliptocytes Not Reportable 06/13/21 Unknown Acanthocytes (Spur) Not Reportable 06/13/21 Unknown Rouleaux Not Reportable 06/13/21 Unknown Hemoglobin C Crystals Not Reportable 06/13/21 Unknown Schistocytes Not Reportable 06/13/21 Unknown Malaria parasites Not Reportable 06/13/21 Unknown Edin Bodies Not Reportable 06/13/21 Unknown Hem Pathologist Commnt No 06/13/21 Unknown PT 18.3 Sec. (12.2-14.9) H 06/20/21 04:33 INR 1.37 (0.87-1.13) H 06/20/21 04:33 APTT 26.4 Sec. (24.2-36.6) 06/13/21 Unknown Fibrinogen 546 mg/dl (211-480) H 06/13/21 Unknown D-Dimer 1244.63 ng/mlDDU (0-234) H 06/13/21 Unknown ABG pH 7.401 pH Units (7.350-7.450) 06/19/21 04:50 POC ABG pCO2 25.6 mmHg (32.0-48.0) L 06/13/21 04:31 ABG pCO2 35.0 mm Hg 06/19/21 04:50 POC ABG pO2 138.8 mmHg (83-108) H 06/13/21 04:31 ABG pO2 78.9 mm Hg (80.0-90.0) L 06/19/21 04:50 POC ABG HCO3 21.4 06/13/21 04:31 ABG HCO3 21.2 mmol/L (20.0-26.0) 06/19/21 04:50 ABG O2 Saturation 97.0 % (95.0-99.0) 06/19/21 04:50 ABG O2 Content 10.2 (0.0-44) 06/19/21 04:50 POC ABG Base Excess -0.7 06/13/21 04:31 ABG Base Excess -3.2 mmol/L (-2.0-3.0) L 06/19/21 04:50 ABG Hemoglobin 7.6 gm/dl (12.0-16.0) L 06/19/21 04:50 ABG Oxyhemoglobin 98.1 (94-98) H 06/13/21 04:31 ABG Carboxyhemoglobin 1.3 % (0.0-5.0) 06/19/21 04:50 ABG Methemoglobin 0.5 % (0.0-1.5) 06/19/21 04:50 Oxyhemoglobin 95.3 % (95.0-99.0) 06/19/21 04:50 Carboxyhemoglobin 0.8 (0.5-1.5) 06/13/21 04:31 FiO2 30 % 06/19/21 04:50 FiO2 % 40.0 06/13/21 04:31 Sodium 148 mmol/L (137-145) H 06/20/21 04:33 Potassium 4.1 mmol/L (3.6-5.0) 06/20/21 04:33 Chloride 114.2 mmol/L (98-107) H 06/20/21 04:33 Carbon Dioxide 24 mmol/L (22-30) 06/20/21 04:33 Anion Gap 14 mmol/L 06/20/21 04:33 BUN 70 mg/dL (7-17) H 06/20/21 04:33 Creatinine 1.4 mg/dL (0.6-1.2) H 06/20/21 04:33 Estimated GFR 44 ml/min 06/20/21 04:33 BUN/Creatinine Ratio 50 % 06/20/21 04:33 Glucose 313 mg/dL (65-100) H 06/20/21 04:33 POC Glucose 288 mg/dL (70-105) H 06/20/21 05:27 Lactic Acid 5.30 mmol/L (0.7-2.0) H* 06/13/21 15:45 Calcium 8.2 mg/dL (8.4-10.2) L 06/20/21 04:33 Phosphorus 4.50 mg/dL (2.5-4.5) 06/20/21 04:33 Magnesium 2.50 mg/dL (1.7-2.3) H 06/20/21 04:33 Total Bilirubin 0.40 mg/dL (0.1-1.2) 06/15/21 03:56 AST 64 units/L (5-40) H 06/15/21 03:56 ALT 106 units/L (7-56) H 06/15/21 03:56 Alkaline Phosphatase 55 units/L (35-129) 06/15/21 03:56 Troponin T < 0.010 ng/mL (0.00-0.029) 06/11/21 23:21 C-Reactive Protein 3.30 mg/dL (0.00-1.30) H 06/16/21 04:32 Total Protein 5.1 g/dL (6.3-8.2) L 06/15/21 03:56 Albumin 2.9 g/dL (3.9-5) L 06/15/21 03:56 Albumin/Globulin Ratio 1.3 % 06/15/21 03:56 Triglycerides 189 mg/dL (2-149) H 06/14/21 06:15 Urine Color Yellow (Yellow) 06/12/21 17:00 Urine Turbidity Clear (Clear) 06/12/21 17:00 Urine pH 5.0 (5.0-7.0) 06/12/21 17:00 Ur Specific [place] 1.035 (1.003-1.030) H 06/12/21 17:00 Urine Protein 30 mg/dl mg/dL (Negative) 06/12/21 17:00 Urine Glucose (UA) 50 mg/dL (Negative) 06/12/21 17:00 Urine Ketones Tr mg/dL (Negative) 06/12/21 17:00 Urine Blood Neg (Negative) 06/12/21 17:00 Urine Nitrite Neg (Negative) 06/12/21 17:00 Urine Bilirubin Neg (Negative) 06/12/21 17:00 Urine Urobilinogen < 2.0 mg/dL (<2.0) 06/12/21 17:00 Ur Leukocyte Esterase Neg (Negative) 06/12/21 17:00 Urine WBC (Auto) < 1.0 /HPF (0.0-6.0) 06/12/21 17:00 Urine RBC (Auto) < 1.0 /HPF (0.0-6.0) 06/12/21 17:00 Urine Creatinine 81.1 mg/dL (0.1-20.0) H 06/15/21 10:40 Urine Sodium 42 mmol/L 06/15/21 10:40 Coronavirus (PCR) Negative (Negative) 06/12/21 09:50 Blood Type O POSITIVE 06/11/21 19:20 Antibody Screen Negative 06/11/21 19:20 Crossmatch See Detail 06/11/21 19:20 Lujan/IV: Voiding Method Indwelling Catheter Active Medications - Current Medications Current Medications: Generic Name Dose Route Start Last Admin Trade Name Freq PRN Reason Stop Dose Admin Lipase/Protease/Amylase 1 each 06/19/21 19:20 Lipase 10,500/Protease 25,000/Amylase 43,750 (Units) Dr Melgar FEEDTUBE PRN PRN For Clogged Feeding Tube Docusate Sodium 100 mg 06/20/21 10:00 Docusate Sodium 100 Mg/10 Ml Oral Liqd PO BID JOLENE Famotidine 10 mg 06/15/21 22:00 06/19/21 21:18 Famotidine 20 Mg/2 Ml Inj IV 10 mg BID JOLENE Administration Fentanyl 50 mcg 06/11/21 22:55 06/15/21 16:50 Fentanyl 100 Mcg/2 Ml Inj IV 50 mcg Q10MIN PRN Administration ANALGESIA Hydralazine HCl 10 mg 06/16/21 08:00 06/19/21 03:02 Hydralazine 20 Mg/1 Ml Inj IV 10 mg Q4H PRN Administration Hypertension Hydromorphone HCl 0.5 mg 06/11/21 20:42 Hydromorphone 1 Mg/1 Ml Inj IV Q3H PRN Pain , Severe (7-10) MIDAZOLAM/NS Drip 100mg/100ml 100 mg in 100 mls @ 1 mls/hr 06/11/21 23:00 06/20/21 03:42 Midazolam/Ns Drip 100mg/100ml IV 2 mg/hr TITR JOLENE 2 mls/hr Titration Protocol 1 MG/HR Fentanyl Citrate 2,000 mcg in 100 mls @ 5.466 mls/hr 06/11/21 23:00 06/20/21 07:04 Fentanyl Drip Premix IV 3 mcg/kg/hr TITR JOLENE 16.397 mls/hr Administration Protocol 1 MCG/KG/HR Phenylephrine HCl 100 mg/ 100 mls @ 3 mls/hr 06/11/21 23:45 06/14/21 07:00 Sodium Chloride IV 0 mcg/min TITR JOLENE 0 mls/hr Titration Protocol 50 MCG/MIN NORepinephrine/NS 8 MG-250 ML 8 mg in 250 mls @ 3.75 mls/hr 06/12/21 02:00 06/20/21 07:57 Norepinephrine/Ns 8 Mg-250 Ml (Double Conc) IV 6 mcg/min TITRATE JOLENE 11.25 mls/hr Titration Protocol 2 MCG/MIN Propofol 1,000 mg in 100 mls @ 3.279 mls/hr 06/12/21 03:00 06/20/21 07:58 Diprivan 10 Mg/Ml IV 25 mcg/kg/min TITR JOLENE 16.397 mls/hr Titration Protocol 5 MCG/KG/MIN Piperacillin Sod/Tazobactam Sod 4.5 gm in 100 mls @ 200 mls/hr 06/19/21 12:00 06/20/21 05:14 Zosyn/Ns 4.5gm/100ml IV 200 mls/hr Q6HR [facility] Administration Protocol Amino Acids/Electrolytes/Dextrose 1,999.92 mls @ 83.33 mls/hr 06/19/21 20:00 06/19/21 20:36 Tpn Adult IV 06/20/21 19:59 83.33 mls/hr DAILY@2000 [facility] Administration Protocol Insulin Glargine 25 units 06/19/21 10:00 06/19/21 21:19 Insulin Glargine 100 Units/Ml SUB-Q 25 units BID JOLENE Administration Insulin Human Lispro 0 unit 06/12/21 12:00 06/20/21 06:01 Insulin Lispro 100 Unit/Ml SUB-Q 6 unit Q6HR JOLENE Administration Protocol Methylprednisolone Sodium Succinate 125 mg 06/11/21 22:00 06/20/21 05:14 Methylprednisolone Sod Succinate 125 Mg/2 Ml Inj IV 125 mg Q8HR JOLENE Administration Metoclopramide HCl 10 mg 06/11/21 20:42 Metoclopramide 10 Mg/2 Ml Inj IV Q6H PRN Nausea And Vomiting Ondansetron HCl 4 mg 06/11/21 20:42 Ondansetron 4 Mg/2 Ml Inj IV Q3H PRN Nausea And Vomiting Senna 17.6 mg 06/20/21 10:00 Sennosides Oral Liqd 8.8 Mg/5 Ml Oral Liqd PO Q12HR JOLENE Simple Syrup 15 ml 06/19/21 19:20 Simple Syrup 15 Ml FEEDTUBE PRN PRN Hypoglycemia Simple Syrup 30 ml 06/19/21 19:20 Simple Syrup 15 Ml FEEDTUBE PRN PRN Hypoglycemia Sodium Bicarbonate 325 mg 06/19/21 19:20 Sodium Bicarbonate 325 Mg Tab FEEDTUBE PRN PRN For Clogged Feeding Tube Sodium Chloride 10 ml 06/11/21 22:00 06/19/21 21:19 Sodium Chloride 0.9% 10 Ml Flush Syringe IV 10 ml BID JOLENE Administration Sodium Chloride 10 ml 06/11/21 20:42 Sodium Chloride 0.9% 10 Ml Flush Syringe IV PRN PRN LINE FLUSH Nutrition/Malnutrition Assess - Dietary Evaluation Nutrition/Malnutrition Findings: Nutrition Notes Start: 06/16/21 12:10 Freq: Status: Active Protocol: Document 06/19/21 10:06 CANDIDO (Rec: 06/19/21 12:44 CANDIDO [email or web address]) Nutrition Notes Initial or Follow up Reassessment Current Diagnosis Diabetes,Sepsis,Hypertension, Respiratory Failure Other Pertinent Diagnosis Jeremiah's Angina, (R) Pneumothorax, Coagulopathy, Cardiac Arrest, Gout... Current Diet PPN (since 06/16), TPN @ 83. 33ml/hr (since 06/17). Labs/Tests 06/19: Na 148, Cl 114.9, CO2 19, BUN 59, Glu 345, Ca 8.1, Phos 4.6, Mg 2.4/ Pertinent Medications 06/19: Insulin, Propofol 1000 mg in 100 ml @ 19.677 ml/hr ( 519 Kcal), others nutritionally unremarkable. Height 5 ft 8 in Weight 109.316 kg [place] Body Weight (kg) 63.63 BMI 36.6 Weight change and time frame No body weight change reported . Weight Status Obese Subjective/Other Information RD consult for routine F/u on TPN advancement. Femoral PICC line well tolerated, according to RN notes. Pt continues on mechanical ventilation. No report on HD at the time. Pt accepted to be transferred to [facility] for ENT evaluation, but no beds available at the time according to Progress notes. Percent of energy/protein needs met: Prescribed TPN @ 83.33ml/hr provides for energy/protein needs (680 Kcal/85 g) during LOS; additionally, Propofol adds 519 Kcal. A tolat proportion of 94% Kcal and 67% AA. Burn Absent Trauma Absent GI Symptoms Other Difficulty In Swallowing,Chewing Food Allergy No Skin Integrity/Comment Surgical wounds. Current % PO Other Minimum of two criteria No #1 Nutrition Diagnosis Inadequate oral intake Diagnosis Progress(for reassessment Continues documentation) Is patient on ventilator? Yes Is Patient Ambulatory and/or Out of Bed No REE-([facility]-confined to bed) [phone] Calculation Used for Recommendations 65-70% energy needs Additional Notes Energy needs: 1,280-1,379 Kcal /day. Protein: 2 g/Kg IBW; 127 g/day . Fluids: 1 ml/Kcal, or as per MD. Nutrition Intervention Nutrition Support: Continue TPN @ 83.33ml/hr: MVI , thiamine, 5% dextrose, 4.3% amino acids, 0mEq Na, 80mEq K, 0mEq Mg, 10mEq Ca, 0mmol Phos , 0% chloride/100% acetate. Osmolality: 765. Kcal 680 Protein (gm) 85 Carbohydrates (gm) 100 Fat (gm) 0 Fluid (mL) 2,000 Fiber (gm) 0 % RDI: 53% Kcal; 67% AA. Goal #1 Provide at least 75% of energy /protein needs through Enteral Feeding during LOS. Goal #2 Maintain body weight within +/ -3% of admission body weight during LOS. Follow-Up By: 06/20/21 Additional Comments Continue monitoring TPN tolerance and BM, ventilation and HD status. BMP, Phos, and Mg labs ordered .
[2021-06-19] MEDS: PIPERACIL/TAZOBACTA 4.5/NS 100 4.5 GM/100 ML VIAL IV SCH ×3 (12:06→23:38)
--- NOTE | 2021-06-19 12:30 | Progress Note ---
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 06/19/21: surgery to attempt trach and peg today. Still will ask to keep on transfer list for cross[place] as her other issues still need to be addressed. If able to place peg, can stop clinimix, give free water and start tube feeds. Prognosis remains guarded. pH better with drop in tidal volume. 06/18/21: [facility] has agreed to accept but no ICU beds available at this time. Spoke with Dr. Vasquez yesterday and Dr. Patricia spoke with ENT there. Spoke with RT this am and patient did have a leak when cuff let down and her tidal volumes dropped to below 100. Patient remains on abx and steriods. Will consider lightening sedation tomorrow and seeing how patient does if cuff leak persists. Dropped tidal volumes to 450. Continue PPN for now. 06/17/21: spoke with surgery and they feel transfer is reasonable. I have reached out to [facility] and [facility] has spoken with someone from [facility]. Await to hear back from them. Continue supportive measures and adequate sedation for pain control. No PSV trials as of yet. Blood sugar control, increase lantus. Most likely secondary to steroids. Continue abx therapy. Guarded prognosis. 06/16/21: Renal function improved with fluids. IMS to give more fluids (LR) today which I agree with. FeNa is =0.7. Should be fluid responsive. Continue clinimix. Needs long acting insulin. Agree with lantus. Asked nursing to increase sedation now that we know that patient's mental status is stable. Picc today. Air leak test vs Neck CT on tomorrow. 06/15/21: Hopeful with worsening renal function ( likely from code on yesterday) that sedatives are just lingering from that. Still making good urine but output has fallen off. Will send urine sodium and urine cr to check Fena. Most likely this is prerenal. ordered renal ultrasound as well. Continue abx and steroids. Will start clinimix today. This should help with the free water piece. Will give another liter bolus of LR right now. Keep sedation off for now. Guarded prognosis. 06/14/21: Will discuss with surgery future plans. They have ordered steroids to help with inflammation and abx continue. All others appears stable and no acute evidence of bleeding at this time. Follow up surgery recs if any new ones. Guarded prognosis. 06/13/21: Patient to back to OR today. BLood transfusion. Will send DIC panel a nd may need to given cryo if over 6 units of PRBC's given. Patient will likely need trach and peg as we need to address nutrition. Chest tube placed, large bore now. Patient now with right sided effusion. Hemothorax???. Will continue to monitor output. Needs picc line as femoral should come out soon. Continue pressors. Continue sedation for pain control and comfort. Guarded prognosis. Surgery comfortable with neck and current situation so they have not request transfer. 1. Placed right femoral central line. pressors can run through this. 2. Repeat chemistry stat given bicarb of 8 and blood sugar of greater than 600. Ordering FSBS now. Earlier bicarb was 25. If accurate will need bicarb drip and vasopressin but not sure as pH on blood gas was normal done around the same time. 3. Coagulopathy is improving. INR down to 4.55 and PTT and pT improving. Will continue to give FFP. Ordered more vitamin K. H/H is stable but patient is oozing from neck and mouth. 4. Vasopressor for blood pressure. Need to keep map 65 and greater 5. Lujan is needed for accurate I/O 6. Surgery called by IMS about current CT situation. They state they will reassess in the am. I have reviewed the images myself. If I can position the patient safely without compromising the airway after adequate sedation, may consider placing chest tube now as INR is better and FFP is hanging. Patient is morbidly obese so shits could move the ET tube so if not safe, will wait until surgery comes in the morning. 7. Would not attempt to pass OG or NG tube given current situation in neck 8. Will discuss with surgery tomorrow but I feel this patient should be transferred to a tertiary care facility with ENT as we do not have that service here. CCT 31 minutes. Subjective Date of service: 06/19/21 Interval history: Surgery with plans to take for trach today and attempt Peg tube placement. Sedated. Per staff, desatted last night, required pressors briefly but now all has resolved. CXr was repeated. LUng is up and stable opacities with sub q emphysema. Objective Vital Signs - 12hr 06/19/21 06/19/21 06/19/21 00:30 00:46 01:00 Temperature Pulse Rate 51 L 52 L 50 L Pulse Rate [ From Monitor] Respiratory 18 15 18 Rate Blood Pressure 149/74 149/74 149/74 O2 Sat by Pulse 100 100 100 Oximetry 06/19/21 06/19/21 06/19/21 01:16 01:30 01:46 Temperature Pulse Rate 49 L 48 L 61 Pulse Rate [ From Monitor] Respiratory 17 18 18 Rate Blood Pressure 149/74 149/74 149/74 O2 Sat by Pulse 100 100 100 Oximetry 06/19/21 06/19/21 06/19/21 02:00 02:16 02:30 Temperature Pulse Rate 51 L 53 L 48 L Pulse Rate [ From Monitor] Respiratory 18 18 18 Rate Blood Pressure 149/74 163/88 163/88 O2 Sat by Pulse 100 100 100 Oximetry 06/19/21 06/19/21 06/19/21 02:46 03:00 03:02 Temperature Pulse Rate 52 L 50 L 51 L Pulse Rate [ From Monitor] Respiratory 18 18 Rate Blood Pressure 163/88 163/88 163/71 O2 Sat by Pulse 100 100 Oximetry 06/19/21 06/19/21 06/19/21 03:16 03:30 03:46 Temperature Pulse Rate 52 L 52 L 51 L Pulse Rate [ From Monitor] Respiratory 18 17 11 L Rate Blood Pressure 158/87 158/87 158/87 O2 Sat by Pulse 100 98 99 Oximetry 06/19/21 06/19/21 06/19/21 04:00 04:16 04:30 Temperature 98.6 F Pulse Rate 57 L 56 L 56 L Pulse Rate [ 60 From Monitor] Respiratory 17 17 18 Rate Blood Pressure 125/69 97/50 125/69 O2 Sat by Pulse 90 93 91 Oximetry 06/19/21 06/19/21 06/19/21 04:46 05:00 05:16 Temperature Pulse Rate 56 L 60 57 L Pulse Rate [ From Monitor] Respiratory 17 18 18 Rate Blood Pressure 125/69 149/71 149/71 O2 Sat by Pulse 90 95 87 Oximetry 06/19/21 06/19/21 06/19/21 05:30 05:46 06:00 Temperature Pulse Rate 54 L 51 L 51 L Pulse Rate [ From Monitor] Respiratory 20 15 17 Rate Blood Pressure 149/71 149/71 146/81 O2 Sat by Pulse 100 100 100 Oximetry 06/19/21 06/19/21 06/19/21 06:16 06:30 06:45 Temperature Pulse Rate 54 L 54 L 51 L Pulse Rate [ From Monitor] Respiratory 18 19 17 Rate Blood Pressure 146/81 146/81 146/81 O2 Sat by Pulse 100 100 100 Oximetry 06/19/21 06/19/21 06/19/21 07:01 07:15 07:18 Temperature 97.9 F Pulse Rate 53 L 49 L Pulse Rate [ From Monitor] Respiratory 11 L 18 Rate Blood Pressure 146/81 146/81 O2 Sat by Pulse 100 100 Oximetry 06/19/21 06/19/21 06/19/21 07:31 07:45 08:00 Temperature Pulse Rate 52 L 51 L 50 L Pulse Rate [ 50 L From Monitor] Respiratory 15 19 18 Rate Blood Pressure 146/81 146/81 142/57 O2 Sat by Pulse 100 100 100 Oximetry 06/19/21 06/19/21 06/19/21 08:01 08:15 08:31 Temperature Pulse Rate 49 L 50 L 50 L Pulse Rate [ From Monitor] Respiratory 17 18 18 Rate Blood Pressure 146/81 146/81 146/81 O2 Sat by Pulse 100 92 99 Oximetry 06/19/21 06/19/21 06/19/21 08:45 09:00 09:15 Temperature Pulse Rate 48 L 48 L 49 L Pulse Rate [ From Monitor] Respiratory 17 18 18 Rate Blood Pressure 146/81 134/71 134/71 O2 Sat by Pulse 97 98 95 Oximetry 06/19/21 06/19/21 09:31 11:31 Temperature Pulse Rate 51 L 48 L Pulse Rate [ From Monitor] Respiratory 18 Rate Blood Pressure 134/71 143/60 O2 Sat by Pulse 93 93 Oximetry Constitutional: alert, appears uncomfortable Eyes: non-icteric ENT: other (patient with blood oozing from mouth but not able to open it voluntarily) Neck: other (covered in dressing, ET tube is anterior but I am not moving secondary to instability) Ascultation: Bilateral: clear Percussion: Bilateral: not dull Cardiovascular: regular rate and rhythm Gastrointestinal: normoactive bowel sounds, soft Extremities: no edema Neurologic: normal mental status CBC and BMP: 06/19/21 04:00 06/19/21 04:00 ABG, PT/INR, D-dimer: ABG ABG pH 7.401 pH Units (7.350-7.450) 06/19/21 04:50 POC ABG pCO2 25.6 mmHg (32.0-48.0) L 06/13/21 04:31 ABG pCO2 35.0 mm Hg 06/19/21 04:50 POC ABG pO2 138.8 mmHg (83-108) H 06/13/21 04:31 ABG pO2 78.9 mm Hg (80.0-90.0) L 06/19/21 04:50 POC ABG HCO3 21.4 06/13/21 04:31 ABG O2 Saturation 97.0 % (95.0-99.0) 06/19/21 04:50 PT/INR, D-dimer PT 17.6 Sec. (12.2-14.9) H 06/13/21 Unknown INR 1.31 (0.87-1.13) H 06/13/21 Unknown D-Dimer 1244.63 ng/mlDDU (0-234) H 06/13/21 Unknown Abnormal lab findings: Abnormal Labs 06/11/21 06/11/21 06/11/21 15:23 15:23 19:20 WBC 12.0 H RBC Hgb Hct MCV 72 L MCH 21 L RDW 17.5 H Plt Count Lymph % (Auto) 12.9 L [place] % (Auto) 8.6 H [place] # (Auto) 1.0 H Seg Neutrophils % 77.4 H Seg Neuts % (Manual) Lymphocytes % (Manual) Monocytes % (Manual) Seg Neutrophils # 9.3 H Seg Neutrophils # Man Lymphocytes # (Manual) Monocytes # (Manual) PT INR APTT Fibrinogen D-Dimer ABG pH POC ABG pCO2 POC ABG pO2 ABG pO2 ABG HCO3 ABG O2 Saturation ABG Base Excess ABG Hemoglobin ABG Oxyhemoglobin Oxyhemoglobin Sodium Potassium Chloride Carbon Dioxide BUN Creatinine Glucose 144 H POC Glucose Lactic Acid Calcium Phosphorus Magnesium AST ALT Alkaline Phosphatase C-Reactive Protein Total Protein Albumin Triglycerides Ur Specific [place] Urine Creatinine Crossmatch See Detail 06/11/21 06/11/21 06/11/21 19:29 19:29 23:21 WBC 15.8 H RBC Hgb 9.4 L Hct MCV 72 L MCH 22 L RDW 17.4 H Plt Count Lymph % (Auto) 9.2 L [place] % (Auto) [place] # (Auto) Seg Neutrophils % 89.0 H Seg Neuts % (Manual) Lymphocytes % (Manual) Monocytes % (Manual) Seg Neutrophils # 14.0 H Seg Neutrophils # Man Lymphocytes # (Manual) Monocytes # (Manual) PT 72.9 H INR 8.18 H* APTT 71.7 H* Fibrinogen D-Dimer ABG pH POC ABG pCO2 POC ABG pO2 ABG pO2 ABG HCO3 ABG O2 Saturation ABG Base Excess ABG Hemoglobin ABG Oxyhemoglobin Oxyhemoglobin Sodium 149 H D Potassium Chloride 124.3 H Carbon Dioxide 8 L* D BUN Creatinine 0.3 L Glucose 628 H* POC Glucose Lactic Acid Calcium 2.4 L* D Phosphorus Magnesium AST ALT < 5 L Alkaline Phosphatase 19 L C-Reactive Protein Total Protein 1.6 L D Albumin 0.8 L Triglycerides Ur Specific [place] Urine Creatinine Crossmatch 06/11/21 06/11/21 06/11/21 23:21 23:22 23:42 WBC RBC Hgb Hct MCV MCH 27 L RDW 22.2 H Plt Count 131 L Lymph % (Auto) [place] % (Auto) [place] # (Auto) Seg Neutrophils % Seg Neuts % (Manual) Lymphocytes % (Manual) Monocytes % (Manual) Seg Neutrophils # Seg Neutrophils # Man Lymphocytes # (Manual) Monocytes # (Manual) PT 46.3 H INR 4.55 H APTT 54.8 H Fibrinogen D-Dimer ABG pH POC ABG pCO2 POC ABG pO2 325.9 H ABG pO2 ABG HCO3 ABG O2 Saturation ABG Base Excess ABG Hemoglobin 8.0 L ABG Oxyhemoglobin 99.0 H Oxyhemoglobin Sodium Potassium Chloride Carbon Dioxide BUN Creatinine Glucose POC Glucose Lactic Acid Calcium Phosphorus Magnesium AST ALT Alkaline Phosphatase C-Reactive Protein Total Protein Albumin Triglycerides Ur Specific [place] Urine Creatinine Crossmatch 06/12/21 06/12/21 06/12/21 01:45 01:45 01:45 WBC 21.6 H RBC 3.04 L Hgb 6.7 L D Hct 22.4 L D MCV 74 L MCH 22 L RDW 18.9 H Plt Count Lymph % (Auto) [place] % (Auto) [place] # (Auto) Seg Neutrophils % Seg Neuts % (Manual) 76.0 H Lymphocytes % (Manual) 2.0 L Monocytes % (Manual) 8.0 H Seg Neutrophils # Seg Neutrophils # Man 16.4 H Lymphocytes # (Manual) 0.4 L Monocytes # (Manual) 1.7 H PT 25.4 H INR 2.10 H APTT Fibrinogen D-Dimer ABG pH POC ABG pCO2 POC ABG pO2 ABG pO2 ABG HCO3 ABG O2 Saturation ABG Base Excess ABG Hemoglobin ABG Oxyhemoglobin Oxyhemoglobin Sodium Potassium 5.6 H D Chloride Carbon Dioxide 20 L D BUN Creatinine Glucose 368 H POC Glucose Lactic Acid Calcium 7.1 L D Phosphorus Magnesium AST ALT Alkaline Phosphatase C-Reactive Protein Total Protein 5.3 L D Albumin 3.1 L Triglycerides Ur Specific [place] Urine Creatinine Crossmatch 06/12/21 06/12/21 06/12/21 02:05 04:41 11:05 WBC 14.6 H RBC 3.52 L Hgb 8.5 L Hct 27.7 L MCV MCH 24 L RDW 20.9 H Plt Count Lymph % (Auto) [place] % (Auto) [place] # (Auto) Seg Neutrophils % Seg Neuts % (Manual) Lymphocytes % (Manual) Monocytes % (Manual) Seg Neutrophils # Seg Neutrophils # Man Lymphocytes # (Manual) Monocytes # (Manual) PT INR APTT Fibrinogen D-Dimer ABG pH POC ABG pCO2 POC ABG pO2 224.6 H ABG pO2 ABG HCO3 ABG O2 Saturation ABG Base Excess ABG Hemoglobin 7.3 L ABG Oxyhemoglobin 98.7 H Oxyhemoglobin Sodium Potassium Chloride Carbon Dioxide BUN Creatinine Glucose POC Glucose 308 H Lactic Acid Calcium Phosphorus Magnesium AST ALT Alkaline Phosphatase C-Reactive Protein Total Protein Albumin Triglycerides Ur Specific [place] Urine Creatinine Crossmatch 06/12/21 06/12/21 06/12/21 11:05 11:05 12:18 WBC RBC Hgb Hct MCV MCH RDW Plt Count Lymph % (Auto) [place] % (Auto) [place] # (Auto) Seg Neutrophils % Seg Neuts % (Manual) Lymphocytes % (Manual) Monocytes % (Manual) Seg Neutrophils # Seg Neutrophils # Man Lymphocytes # (Manual) Monocytes # (Manual) PT 16.8 H INR 1.23 H APTT Fibrinogen D-Dimer ABG pH POC ABG pCO2 POC ABG pO2 ABG pO2 ABG HCO3 ABG O2 Saturation ABG Base Excess ABG Hemoglobin ABG Oxyhemoglobin Oxyhemoglobin Sodium Potassium Chloride Carbon Dioxide BUN 24 H Creatinine Glucose 324 H POC Glucose 281 H Lactic Acid Calcium 7.5 L Phosphorus Magnesium AST 70 H ALT 57 H Alkaline Phosphatase C-Reactive Protein Total Protein 6.0 L Albumin 3.6 L Triglycerides Ur Specific [place] Urine Creatinine Crossmatch 06/12/21 06/12/21 06/12/21 17:00 17:00 17:00 WBC RBC Hgb 7.5 L Hct 24.0 L MCV MCH RDW Plt Count Lymph % (Auto) [place] % (Auto) [place] # (Auto) Seg Neutrophils % Seg Neuts % (Manual) Lymphocytes % (Manual) Monocytes % (Manual) Seg Neutrophils # Seg Neutrophils # Man Lymphocytes # (Manual) Monocytes # (Manual) PT 16.0 H INR 1.16 H APTT Fibrinogen D-Dimer ABG pH POC ABG pCO2 POC ABG pO2 ABG pO2 ABG HCO3 ABG O2 Saturation ABG Base Excess ABG Hemoglobin ABG Oxyhemoglobin Oxyhemoglobin Sodium Potassium Chloride Carbon Dioxide BUN Creatinine Glucose POC Glucose Lactic Acid Calcium Phosphorus Magnesium AST ALT Alkaline Phosphatase C-Reactive Protein Total Protein Albumin Triglycerides Ur Specific [place] 1.035 H Urine Creatinine Crossmatch 06/12/21 06/12/21 06/12/21 18:06 23:00 23:05 WBC RBC Hgb 7.6 L Hct 23.5 L MCV MCH RDW Plt Count Lymph % (Auto) [place] % (Auto) [place] # (Auto) Seg Neutrophils % Seg Neuts % (Manual) Lymphocytes % (Manual) Monocytes % (Manual) Seg Neutrophils # Seg Neutrophils # Man Lymphocytes # (Manual) Monocytes # (Manual) PT INR APTT Fibrinogen D-Dimer ABG pH POC ABG pCO2 POC ABG pO2 ABG pO2 ABG HCO3 ABG O2 Saturation ABG Base Excess ABG Hemoglobin ABG Oxyhemoglobin Oxyhemoglobin Sodium Potassium Chloride Carbon Dioxide BUN Creatinine Glucose POC Glucose 257 H 300 H Lactic Acid Calcium Phosphorus Magnesium AST ALT Alkaline Phosphatase C-Reactive Protein Total Protein Albumin Triglycerides Ur Specific [place] Urine Creatinine Crossmatch 06/13/21 06/13/21 06/13/21 04:31 05:19 07:30 WBC RBC Hgb 6.8 L Hct 21.7 L MCV MCH RDW Plt Count Lymph % (Auto) [place] % (Auto) [place] # (Auto) Seg Neutrophils % Seg Neuts % (Manual) Lymphocytes % (Manual) Monocytes % (Manual) Seg Neutrophils # Seg Neutrophils # Man Lymphocytes # (Manual) Monocytes # (Manual) PT INR APTT Fibrinogen D-Dimer ABG pH 7.541 H POC ABG pCO2 25.6 L POC ABG pO2 138.8 H ABG pO2 ABG HCO3 ABG O2 Saturation ABG Base Excess ABG Hemoglobin 7.3 L ABG Oxyhemoglobin 98.1 H Oxyhemoglobin Sodium Potassium Chloride Carbon Dioxide BUN Creatinine Glucose POC Glucose 286 H Lactic Acid Calcium Phosphorus Magnesium AST ALT Alkaline Phosphatase C-Reactive Protein Total Protein Albumin Triglycerides Ur Specific [place] Urine Creatinine Crossmatch 06/13/21 06/13/21 06/13/21 07:30 12:04 14:50 WBC RBC Hgb Hct MCV MCH RDW Plt Count Lymph % (Auto) [place] % (Auto) [place] # (Auto) Seg Neutrophils % Seg Neuts % (Manual) Lymphocytes % (Manual) Monocytes % (Manual) Seg Neutrophils # Seg Neutrophils # Man Lymphocytes # (Manual) Monocytes # (Manual) PT INR APTT Fibrinogen D-Dimer ABG pH 7.039 L* 7.182 L* POC ABG pCO2 POC ABG pO2 ABG pO2 63.1 L ABG HCO3 17.4 L ABG O2 Saturation 73.4 L ABG Base Excess -12.6 L -7.1 L ABG Hemoglobin 7.7 L 6.9 L ABG Oxyhemoglobin Oxyhemoglobin 71.8 L 93.5 L Sodium Potassium Chloride 108.9 H Carbon Dioxide BUN 28 H Creatinine Glucose 293 H POC Glucose Lactic Acid Calcium 7.2 L Phosphorus Magnesium AST 106 H ALT 92 H Alkaline Phosphatase C-Reactive Protein Total Protein 5.6 L Albumin 3.3 L Triglycerides Ur Specific [place] Urine Creatinine Crossmatch 06/13/21 06/13/21 06/13/21 14:54 15:45 17:34 WBC RBC Hgb Hct MCV MCH RDW Plt Count Lymph % (Auto) [place] % (Auto) [place] # (Auto) Seg Neutrophils % Seg Neuts % (Manual) Lymphocytes % (Manual) Monocytes % (Manual) Seg Neutrophils # Seg Neutrophils # Man Lymphocytes # (Manual) Monocytes # (Manual) PT INR APTT Fibrinogen D-Dimer ABG pH POC ABG pCO2 POC ABG pO2 ABG pO2 178.4 H ABG HCO3 ABG O2 Saturation 99.1 H ABG Base Excess ABG Hemoglobin 8.0 L ABG Oxyhemoglobin Oxyhemoglobin Sodium Potassium Chloride 107.3 H Carbon Dioxide 19 L BUN 33 H Creatinine 1.5 H Glucose 379 H POC Glucose Lactic Acid 5.30 H* Calcium 6.8 L Phosphorus Magnesium AST ALT Alkaline Phosphatase C-Reactive Protein Total Protein Albumin Triglycerides Ur Specific [place] Urine Creatinine Crossmatch 06/13/21 06/13/21 06/13/21 17:40 23:29 Unknown WBC 22.5 H RBC 3.16 L Hgb 8.0 L Hct 26.0 L MCV MCH 26 L RDW 21.4 H Plt Count Lymph % (Auto) [place] % (Auto) [place] # (Auto) Seg Neutrophils % Seg Neuts % (Manual) 88.0 H Lymphocytes % (Manual) 4.0 L Monocytes % (Manual) Seg Neutrophils # Seg Neutrophils # Man 19.8 H Lymphocytes # (Manual) 0.9 L Monocytes # (Manual) 1.4 H PT INR APTT Fibrinogen D-Dimer ABG pH POC ABG pCO2 POC ABG pO2 ABG pO2 ABG HCO3 ABG O2 Saturation ABG Base Excess ABG Hemoglobin ABG Oxyhemoglobin Oxyhemoglobin Sodium Potassium Chloride Carbon Dioxide BUN Creatinine Glucose POC Glucose 294 H 288 H Lactic Acid Calcium Phosphorus Magnesium AST ALT Alkaline Phosphatase C-Reactive Protein Total Protein Albumin Triglycerides Ur Specific [place] Urine Creatinine Crossmatch 06/13/21 06/14/21 06/14/21 Unknown 05:39 06:15 WBC RBC 2.93 L Hgb 7.2 L Hct 23.2 L MCV MCH 25 L RDW 21.2 H Plt Count Lymph % (Auto) [place] % (Auto) [place] # (Auto) Seg Neutrophils % Seg Neuts % (Manual) Lymphocytes % (Manual) Monocytes % (Manual) Seg Neutrophils # Seg Neutrophils # Man Lymphocytes # (Manual) Monocytes # (Manual) PT 17.6 H INR 1.31 H APTT Fibrinogen 546 H D-Dimer 1244.63 H ABG pH POC ABG pCO2 POC ABG pO2 ABG pO2 ABG HCO3 ABG O2 Saturation ABG Base Excess ABG Hemoglobin ABG Oxyhemoglobin Oxyhemoglobin Sodium Potassium Chloride Carbon Dioxide BUN Creatinine Glucose POC Glucose 246 H Lactic Acid Calcium Phosphorus Magnesium AST ALT Alkaline Phosphatase C-Reactive Protein Total Protein Albumin Triglycerides Ur Specific [place] Urine Creatinine Crossmatch 06/14/21 06/14/21 06/14/21 06:15 06:15 09:13 WBC RBC Hgb Hct MCV MCH RDW Plt Count Lymph % (Auto) [place] % (Auto) [place] # (Auto) Seg Neutrophils % Seg Neuts % (Manual) Lymphocytes % (Manual) Monocytes % (Manual) Seg Neutrophils # Seg Neutrophils # Man Lymphocytes # (Manual) Monocytes # (Manual) PT INR APTT Fibrinogen D-Dimer ABG pH POC ABG pCO2 POC ABG pO2 ABG pO2 183.0 H ABG HCO3 ABG O2 Saturation 99.2 H ABG Base Excess ABG Hemoglobin 6.6 L ABG Oxyhemoglobin Oxyhemoglobin Sodium 147 H Potassium Chloride 112.5 H Carbon Dioxide 21 L BUN 36 H Creatinine 1.4 H Glucose 281 H POC Glucose Lactic Acid Calcium 6.9 L Phosphorus Magnesium AST ALT Alkaline Phosphatase C-Reactive Protein Total Protein Albumin Triglycerides 189 H Ur Specific [place] Urine Creatinine Crossmatch 06/14/21 06/14/21 06/14/21 10:45 12:16 13:30 WBC RBC Hgb 7.1 L Hct 22.3 L MCV MCH RDW Plt Count Lymph % (Auto) [place] % (Auto) [place] # (Auto) Seg Neutrophils % Seg Neuts % (Manual) Lymphocytes % (Manual) Monocytes % (Manual) Seg Neutrophils # Seg Neutrophils # Man Lymphocytes # (Manual) Monocytes # (Manual) PT INR APTT Fibrinogen D-Dimer ABG pH 7.205 L POC ABG pCO2 POC ABG pO2 ABG pO2 261.3 H ABG HCO3 ABG O2 Saturation 99.4 H ABG Base Excess -7.2 L ABG Hemoglobin 7.6 L ABG Oxyhemoglobin Oxyhemoglobin Sodium Potassium Chloride Carbon Dioxide BUN Creatinine Glucose POC Glucose 174 H Lactic Acid Calcium Phosphorus Magnesium AST ALT Alkaline Phosphatase C-Reactive Protein Total Protein Albumin Triglycerides Ur Specific [place] Urine Creatinine Crossmatch 06/14/21 06/14/21 06/15/21 17:40 18:43 00:06 WBC RBC Hgb Hct MCV MCH RDW Plt Count Lymph % (Auto) [place] % (Auto) [place] # (Auto) Seg Neutrophils % Seg Neuts % (Manual) Lymphocytes % (Manual) Monocytes % (Manual) Seg Neutrophils # Seg Neutrophils # Man Lymphocytes # (Manual) Monocytes # (Manual) PT INR APTT Fibrinogen D-Dimer ABG pH 7.292 L POC ABG pCO2 POC ABG pO2 ABG pO2 78.8 L ABG HCO3 ABG O2 Saturation ABG Base Excess -5.0 L ABG Hemoglobin 9.1 L ABG Oxyhemoglobin Oxyhemoglobin 93.7 L Sodium Potassium Chloride Carbon Dioxide BUN Creatinine Glucose POC Glucose 182 H 144 H Lactic Acid Calcium Phosphorus Magnesium AST ALT Alkaline Phosphatase C-Reactive Protein Total Protein Albumin Triglycerides Ur Specific [place] Urine Creatinine Crossmatch 06/15/21 06/15/21 06/15/21 03:55 03:56 10:40 WBC RBC Hgb 8.4 L Hct 25.8 L MCV MCH RDW Plt Count Lymph % (Auto) [place] % (Auto) [place] # (Auto) Seg Neutrophils % Seg Neuts % (Manual) Lymphocytes % (Manual) Monocytes % (Manual) Seg Neutrophils # Seg Neutrophils # Man Lymphocytes # (Manual) Monocytes # (Manual) PT INR APTT Fibrinogen D-Dimer ABG pH POC ABG pCO2 POC ABG pO2 ABG pO2 ABG HCO3 ABG O2 Saturation ABG Base Excess ABG Hemoglobin ABG Oxyhemoglobin Oxyhemoglobin Sodium 147 H Potassium Chloride 112.2 H Carbon Dioxide 21 L BUN 47 H Creatinine 1.9 H Glucose 272 H POC Glucose Lactic Acid Calcium 7.3 L Phosphorus Magnesium AST 64 H ALT 106 H Alkaline Phosphatase C-Reactive Protein Total Protein 5.1 L Albumin 2.9 L Triglycerides Ur Specific [place] Urine Creatinine 81.1 H Crossmatch 06/15/21 06/15/21 06/15/21 11:46 17:16 23:17 WBC RBC Hgb Hct MCV MCH RDW Plt Count Lymph % (Auto) [place] % (Auto) [place] # (Auto) Seg Neutrophils % Seg Neuts % (Manual) Lymphocytes % (Manual) Monocytes % (Manual) Seg Neutrophils # Seg Neutrophils # Man Lymphocytes # (Manual) Monocytes # (Manual) PT INR APTT Fibrinogen D-Dimer ABG pH POC ABG pCO2 POC ABG pO2 ABG pO2 ABG HCO3 ABG O2 Saturation ABG Base Excess ABG Hemoglobin ABG Oxyhemoglobin Oxyhemoglobin Sodium Potassium Chloride Carbon Dioxide BUN Creatinine Glucose POC Glucose 271 H 268 H 264 H Lactic Acid Calcium Phosphorus Magnesium AST ALT Alkaline Phosphatase C-Reactive Protein Total Protein Albumin Triglycerides Ur Specific [place] Urine Creatinine Crossmatch 06/15/21 06/15/21 06/16/21 Unknown Unknown 04:32 WBC RBC 3.21 L 3.16 L Hgb 8.4 L 8.2 L Hct 26.1 L 25.4 L MCV MCH 26 L 26 L RDW 21.3 H 21.2 H Plt Count 105 L 118 L Lymph % (Auto) [place] % (Auto) [place] # (Auto) Seg Neutrophils % Seg Neuts % (Manual) Lymphocytes % (Manual) Monocytes % (Manual) Seg Neutrophils # Seg Neutrophils # Man Lymphocytes # (Manual) Monocytes # (Manual) PT INR APTT Fibrinogen D-Dimer ABG pH 7.465 H POC ABG pCO2 POC ABG pO2 ABG pO2 114.1 H ABG HCO3 ABG O2 Saturation ABG Base Excess ABG Hemoglobin 8.4 L ABG Oxyhemoglobin Oxyhemoglobin Sodium Potassium Chloride Carbon Dioxide BUN Creatinine Glucose POC Glucose Lactic Acid Calcium Phosphorus Magnesium AST ALT Alkaline Phosphatase C-Reactive Protein Total Protein Albumin Triglycerides Ur Specific [place] Urine Creatinine Crossmatch 06/16/21 06/16/21 06/16/21 04:32 04:32 05:08 WBC RBC Hgb Hct MCV MCH RDW Plt Count Lymph % (Auto) [place] % (Auto) [place] # (Auto) Seg Neutrophils % Seg Neuts % (Manual) Lymphocytes % (Manual) Monocytes % (Manual) Seg Neutrophils # Seg Neutrophils # Man Lymphocytes # (Manual) Monocytes # (Manual) PT INR APTT Fibrinogen D-Dimer ABG pH POC ABG pCO2 POC ABG pO2 ABG pO2 ABG HCO3 ABG O2 Saturation ABG Base Excess ABG Hemoglobin ABG Oxyhemoglobin Oxyhemoglobin Sodium 148 H Potassium 3.3 L Chloride 115.1 H Carbon Dioxide 21 L BUN 54 H Creatinine 1.6 H Glucose 367 H POC Glucose 356 H Lactic Acid Calcium 7.4 L Phosphorus Magnesium AST ALT Alkaline Phosphatase C-Reactive Protein 3.30 H Total Protein Albumin Triglycerides Ur Specific [place] Urine Creatinine Crossmatch 06/16/21 06/16/21 06/16/21 05:30 11:46 17:03 WBC RBC Hgb Hct MCV MCH RDW Plt Count Lymph % (Auto) [place] % (Auto) [place] # (Auto) Seg Neutrophils % Seg Neuts % (Manual) Lymphocytes % (Manual) Monocytes % (Manual) Seg Neutrophils # Seg Neutrophils # Man Lymphocytes # (Manual) Monocytes # (Manual) PT INR APTT Fibrinogen D-Dimer ABG pH 7.475 H POC ABG pCO2 POC ABG pO2 ABG pO2 171.8 H ABG HCO3 ABG O2 Saturation 99.1 H ABG Base Excess ABG Hemoglobin 11.7 L ABG Oxyhemoglobin Oxyhemoglobin Sodium Potassium Chloride Carbon Dioxide BUN Creatinine Glucose POC Glucose 309 H 345 H Lactic Acid Calcium Phosphorus Magnesium AST ALT Alkaline Phosphatase C-Reactive Protein Total Protein Albumin Triglycerides Ur Specific [place] Urine Creatinine Crossmatch 06/16/21 06/16/21 06/17/21 20:18 23:22 04:50 WBC RBC Hgb Hct MCV MCH RDW Plt Count Lymph % (Auto) [place] % (Auto) [place] # (Auto) Seg Neutrophils % Seg Neuts % (Manual) Lymphocytes % (Manual) Monocytes % (Manual) Seg Neutrophils # Seg Neutrophils # Man Lymphocytes # (Manual) Monocytes # (Manual) PT INR APTT Fibrinogen D-Dimer ABG pH 7.479 H POC ABG pCO2 POC ABG pO2 ABG pO2 143.1 H ABG HCO3 ABG O2 Saturation ABG Base Excess ABG Hemoglobin 10.0 L ABG Oxyhemoglobin Oxyhemoglobin Sodium Potassium Chloride Carbon Dioxide BUN Creatinine Glucose POC Glucose 325 H 315 H Lactic Acid Calcium Phosphorus Magnesium AST ALT Alkaline Phosphatase C-Reactive Protein Total Protein Albumin Triglycerides Ur Specific [place] Urine Creatinine Crossmatch 06/17/21 06/17/21 06/17/21 05:18 05:30 05:30 WBC RBC 3.17 L Hgb 8.2 L Hct 25.5 L MCV MCH 26 L RDW 21.2 H Plt Count 128 L Lymph % (Auto) [place] % (Auto) [place] # (Auto) Seg Neutrophils % Seg Neuts % (Manual) Lymphocytes % (Manual) Monocytes % (Manual) Seg Neutrophils # Seg Neutrophils # Man Lymphocytes # (Manual) Monocytes # (Manual) PT INR APTT Fibrinogen D-Dimer ABG pH POC ABG pCO2 POC ABG pO2 ABG pO2 ABG HCO3 ABG O2 Saturation ABG Base Excess ABG Hemoglobin ABG Oxyhemoglobin Oxyhemoglobin Sodium 148 H Potassium Chloride 113.7 H Carbon Dioxide 20 L BUN 57 H Creatinine 1.4 H Glucose 351 H POC Glucose 324 H Lactic Acid Calcium 8.0 L Phosphorus 2.30 L Magnesium AST ALT Alkaline Phosphatase C-Reactive Protein Total Protein Albumin Triglycerides Ur Specific [place] Urine Creatinine Crossmatch 06/17/21 06/17/21 06/17/21 11:49 17:43 21:42 WBC RBC Hgb Hct MCV MCH RDW Plt Count Lymph % (Auto) [place] % (Auto) [place] # (Auto) Seg Neutrophils % Seg Neuts % (Manual) Lymphocytes % (Manual) Monocytes % (Manual) Seg Neutrophils # Seg Neutrophils # Man Lymphocytes # (Manual) Monocytes # (Manual) PT INR APTT Fibrinogen D-Dimer ABG pH POC ABG pCO2 POC ABG pO2 ABG pO2 ABG HCO3 ABG O2 Saturation ABG Base Excess ABG Hemoglobin ABG Oxyhemoglobin Oxyhemoglobin Sodium Potassium Chloride Carbon Dioxide BUN Creatinine Glucose POC Glucose 305 H 307 H 286 H Lactic Acid Calcium Phosphorus Magnesium AST ALT Alkaline Phosphatase C-Reactive Protein Total Protein Albumin Triglycerides Ur Specific [place] Urine Creatinine Crossmatch 06/17/21 06/18/21 06/18/21 23:59 04:20 04:37 WBC RBC 3.53 L Hgb 9.1 L Hct 28.7 L MCV MCH 26 L RDW 21.3 H Plt Count Lymph % (Auto) [place] % (Auto) [place] # (Auto) Seg Neutrophils % Seg Neuts % (Manual) Lymphocytes % (Manual) Monocytes % (Manual) Seg Neutrophils # Seg Neutrophils # Man Lymphocytes # (Manual) Monocytes # (Manual) PT INR APTT Fibrinogen D-Dimer ABG pH 7.495 H POC ABG pCO2 POC ABG pO2 ABG pO2 108.3 H ABG HCO3 ABG O2 Saturation ABG Base Excess -2.1 L ABG Hemoglobin 10.0 L ABG Oxyhemoglobin Oxyhemoglobin Sodium Potassium Chloride Carbon Dioxide BUN Creatinine Glucose POC Glucose 264 H Lactic Acid Calcium Phosphorus Magnesium AST ALT Alkaline Phosphatase C-Reactive Protein Total Protein Albumin Triglycerides Ur Specific [place] Urine Creatinine Crossmatch 06/18/21 06/18/21 06/18/21 04:37 05:32 11:21 WBC RBC Hgb Hct MCV MCH RDW Plt Count Lymph % (Auto) [place] % (Auto) [place] # (Auto) Seg Neutrophils % Seg Neuts % (Manual) Lymphocytes % (Manual) Monocytes % (Manual) Seg Neutrophils # Seg Neutrophils # Man Lymphocytes # (Manual) Monocytes # (Manual) PT INR APTT Fibrinogen D-Dimer ABG pH POC ABG pCO2 POC ABG pO2 ABG pO2 ABG HCO3 ABG O2 Saturation ABG Base Excess ABG Hemoglobin ABG Oxyhemoglobin Oxyhemoglobin Sodium 148 H Potassium Chloride 114.7 H Carbon Dioxide BUN 59 H Creatinine 1.3 H Glucose 329 H POC Glucose 293 H 291 H Lactic Acid Calcium 8.1 L Phosphorus Magnesium AST ALT Alkaline Phosphatase C-Reactive Protein Total Protein Albumin Triglycerides Ur Specific [place] Urine Creatinine Crossmatch 06/18/21 06/18/2106/19/22 18:21 21:46 00:15 WBC RBC Hgb Hct MCV MCH RDW Plt Count Lymph % (Auto) [place] % (Auto) [place] # (Auto) Seg Neutrophils % Seg Neuts % (Manual) Lymphocytes % (Manual) Monocytes % (Manual) Seg Neutrophils # Seg Neutrophils # Man Lymphocytes # (Manual) Monocytes # (Manual) PT INR APTT Fibrinogen D-Dimer ABG pH POC ABG pCO2 POC ABG pO2 ABG pO2 ABG HCO3 ABG O2 Saturation ABG Base Excess ABG Hemoglobin ABG Oxyhemoglobin Oxyhemoglobin Sodium Potassium Chloride Carbon Dioxide BUN Creatinine Glucose POC Glucose 239 H 259 H 310 H Lactic Acid Calcium Phosphorus Magnesium AST ALT Alkaline Phosphatase C-Reactive Protein Total Protein Albumin Triglycerides Ur Specific [place] Urine Creatinine Crossmatch 06/19/21 06/19/21 06/19/21 04:00 04:00 04:50 WBC RBC 3.64 L Hgb 9.1 L Hct 29.1 L MCV MCH 25 L RDW 21.5 H Plt Count Lymph % (Auto) [place] % (Auto) [place] # (Auto) Seg Neutrophils % Seg Neuts % (Manual) Lymphocytes % (Manual) Monocytes % (Manual) Seg Neutrophils # Seg Neutrophils # Man Lymphocytes # (Manual) Monocytes # (Manual) PT INR APTT Fibrinogen D-Dimer ABG pH POC ABG pCO2 POC ABG pO2 ABG pO2 78.9 L ABG HCO3 ABG O2 Saturation ABG Base Excess -3.2 L ABG Hemoglobin 7.6 L ABG Oxyhemoglobin Oxyhemoglobin Sodium 148 H Potassium Chloride 114.9 H Carbon Dioxide 19 L BUN 59 H Creatinine Glucose 345 H POC Glucose Lactic Acid Calcium 8.1 L Phosphorus 4.60 H D Magnesium 2.40 H AST ALT Alkaline Phosphatase C-Reactive Protein Total Protein Albumin Triglycerides Ur Specific [place] Urine Creatinine Crossmatch 06/19/21 06/19/21 06:28 11:11 WBC RBC Hgb Hct MCV MCH RDW Plt Count Lymph % (Auto) [place] % (Auto) [place] # (Auto) Seg Neutrophils % Seg Neuts % (Manual) Lymphocytes % (Manual) Monocytes % (Manual) Seg Neutrophils # Seg Neutrophils # Man Lymphocytes # (Manual) Monocytes # (Manual) PT INR APTT Fibrinogen D-Dimer ABG pH POC ABG pCO2 POC ABG pO2 ABG pO2 ABG HCO3 ABG O2 Saturation ABG Base Excess ABG Hemoglobin ABG Oxyhemoglobin Oxyhemoglobin Sodium Potassium Chloride Carbon Dioxide BUN Creatinine Glucose POC Glucose 279 H 275 H Lactic Acid Calcium Phosphorus Magnesium AST ALT Alkaline Phosphatase C-Reactive Protein Total Protein Albumin Triglycerides Ur Specific [place] Urine Creatinine Crossmatch
--- NOTE | 2021-06-19 14:04 | Event Note ---
Date: 06/19/21 Patient off the floor. Continue on IV Zosyn. Will follow up tomorrow.
[2021-06-19] MEDS ORDERED: LIDOCAINE (1%) 10 MG/1 ML VIAL 20 ML MDV ONE (14:24)
[2021-06-19] MEDS ORDERED: BUPIVACAINE/PF (0.5%) 5 MG/1 ML 30 ML VIAL INFILTRATI ONE ×2 (14:24→14:37)
[2021-06-19] MEDS ORDERED: VASOPRESSIN 20 UNIT/1 ML INJ ONE (14:24)
[2021-06-19] MEDS ORDERED: GLYCOPYRROLATE 0.4 MG/2 ML INJ ONE (14:28)
[2021-06-19] MEDS ORDERED: ROCURONIUM 50 MG/5 ML INJ IV ONE (14:28)
[2021-06-19] MEDS ORDERED: SODIUM CHLORIDE 0.9% 1000 ML 1,000 ML ONE (14:28)
[2021-06-19] MEDS ORDERED: LIDOCAINE (1%) 10 MG/1 ML VIAL 20 ML MDV INFILTRATI ONE (14:37)
[2021-06-19] MEDS ORDERED: SODIUM CHLORIDE 0.9% IRR 1,500 ML BOTTLE IR ONE (14:37)
--- NOTE | 2021-06-19 15:16 | Anesthesia Day of Surgery ---
Anesthesia Day of Surgery - Day of Surgery Patient Examined: Yes Patient H&P Reviewed: Yes Patient is NPO: Yes
--- NOTE | 2021-06-19 15:38 | Operative Report ---
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 Patricia Vice President Of Human Resources: Dr. Dr. Collazo Anesthesia: General endotracheal anesthesia Estimated blood loss: 50 cc Specimen: None Findings: This patient is seen in the OR for a surgical airway. She is under general endotracheal anesthesia on arrival from the ICU. She is placed on the OR table. Timeouts and consents are on the chart. Both arms are tucked as the patient is supine with the head elevated. The table is in the semi-Fowlers or modified beachchair position. A roll with an inflatable bag is placed under the shoulders. The neck is then prepped with ChloraPrep and 3 minutes later draped in a sterile fashion. The previous T shaped incision incision is verified to be 2 fingerbreadths above the sternal notch. The sutures are divided and the wound is reopened. The cricothyroid cartilage is identified and the tracheostomy is made 2 rings below this location. Trach bag worker is used to enlarge the incision. The endotracheal tube is visualized. Suture of 2-0 Prolene is used as stay sutures on the sides of the trachea. The endotracheal tube was withdrawn to above the tracheotomy. A #10 fenestrated Shiley is placed into the opening without difficulty. The obturator is removed. The anesthetic tubing is passed into the drape and attached to the Shiley. The glide scope was used to through the Shiley to visualize the devin. Skin closure is done with a 2-0 Prolene to loosely approximate the skin around the Shiley. 2-0 Prolene is used to attach the corners of the Shiley to the skin on the neck. A trach gauze is placed under the Shiley. Trach tape is used to secure the Shiley in place. Patient tolerated seizure well.
--- NOTE | 2021-06-19 16:33 | XRay Report ---
CHEST 1 VIEW 06/19/2021 3:23 PM INDICATION / CLINICAL INFORMATION: tracheostomy placement. COMPARISON: One view of the chest from earlier today. FINDINGS: SUPPORT DEVICES: A tracheostomy tube has been placed with expected positioning. Similarly positioned right chest tube. HEART / MEDIASTINUM: Stable size of the cardiomediastinal silhouette. Given the extensive subcutaneou s gas throughout the neck and chest, pneumomediastinum cannot be entirely excluded. LUNGS / PLEURA: No significant pulmonary abnormality. No significant pleural effusion. No pneumothora x. ADDITIONAL FINDINGS: No significant additional findings. IMPRESSION: Satisfactory positioning of the tracheostomy tube with increased generalized subcutaneous gas through out the neck and chest. Signer Name: Fran Arellano MD Signed: 06/19/2021 4:28 PM Workstation Name: [id number]
[2021-06-19 17:54] LABS: INR 2.57 (0.87-1.13)
[2021-06-19] MEDS ORDERED: LIPASE 10,500/PROTEASE 25,000/AMYLASE 43,750 (UNITS) DR CAP FEEDTUBE PRN (19:20)
[2021-06-19] MEDS ORDERED: SODIUM BICARBONATE 325 MG TAB FEEDTUBE PRN (19:20)
[2021-06-19] MEDS ORDERED: SIMPLE SYRUP 15 ML FEEDTUBE PRN ×2 (19:20)
[2021-06-19] MEDS ORDERED: PHYTONADIONE(ADULT ONLY) 10 MG in SODIUM CHLORIDE 0.9% 50 ML IV ONE (19:41)
[2021-06-19] MEDS ORDERED: TOTAL PARENTERAL NUTRITION 1,999.92 ML IV SCH (20:00)
[2021-06-20] MEDS: INSULIN LISPRO 100 UNIT/ML SUB-Q SCH ×4 (00:04→17:31)
[2021-06-20 00:07] LABS: Hematocrit 22.5 % (30.3-42.9); Hemoglobin 7.4 gm/dl (10.1-14.3)
[2021-06-20] MEDS: fentaNYL DRIP Premix 2,000 MCG/100 ML BAG IV SCH ×5 (01:56→22:54)
[2021-06-20 05:07] LABS: Hematocrit 26.5 % (30.3-42.9); Hemoglobin 8.5 gm/dl (10.1-14.3); Mean Corpuscular HGB Conc 32 % (30-34); Mean Corpuscular Volume 80 fl (79-97); Platelet Count 302 K/mm3 (140-440); Red Blood Count 3.31 M/mm3 (3.65-5.03)
[2021-06-20 05:09] LABS: Red Cell Distribution Width 21.5 % (13.2-15.2)
[2021-06-20] MEDS: methylPREDNISolone Sod Succinate 125 MG/2 ML INJ IV SCH ×3 (05:14→21:42)
[2021-06-20] MEDS: PIPERACIL/TAZOBACTA 4.5/NS 100 4.5 GM/100 ML VIAL IV SCH ×3 (05:14→17:31)
[2021-06-20 05:17] LABS: INR 1.37 (0.87-1.13)
[2021-06-20 05:22] LABS: Calcium 8.2 mg/dL (8.4-10.2)
--- NOTE | 2021-06-20 09:02 | Operative Report ---
Operative Report Operative Report: Date of surgery: 06/19/2009 Preoperative diagnosis: Jeremiah's angina Postoperative diagnosis: Same as above Procedure: PEG tube placement Surgeon: Arik Collazo DO Cosurgeon: Cindy Patricia MD Anesthesia:GETA, local Findings: Outer bumper at 6 cm, satisfactory transillumination EBL: 5 cc Specimen: None Complications: None Disposition: Stable to ICU HPI and indication: Patient is a 76-year-old female who presented to the emergency room with Gael's angina causing severe respiratory distress. The patient had an emergent airway placed in the emergency room as she could not be intubated transorally. The patient has not been able to be dilated. Tracheostomy and PEG tube was requested by the emergency planner. Consent was obtained from family. Procedure in detail: A mouthguard was placed through which a flexible endoscope was passed through the mouth and into the esophagus. The endoscope was advanced through the esophagus and into the stomach. The stomach was unremarkable. The stomach was insufflated and transillumination performed. An area of transillumination was visualized in the epigastric area and marked. The skin was then prepped and draped in usual sterile fashion. Local anesthetic was infiltrated to the skin at the intended incision site. A small incision was made in the skin using an 11 blade. An introducer needle/breakaway sheath was inserted directly through this incision into the stomach under direct endoscopic visualization. The needle was removed. The wire was passed and grasped with a snare by the assistant store manager trainee and the wire pulled along with the endoscope through the mouth. The PEG tube was assembled onto the wire and pulled back through the mouth and advanced into the stomach. The outer bumper was at 6 cm at the skin. The PEG tube was cut to size and assembled in the usual fashion. A drain sponge was applied between the skin and the PEG tube and the tube secured with tape. I then reinserted the endoscope into the mouth and advanced it into the stomach. The PEG tube inner bumper was seen to lay flush against the gastric mucosa without tension. There is no bleeding. The pylorus was entered and the first portion of the duodenum was unremarkable. The scope was then withdrawn back into the stomach and retroflexed. The entirety of the stomach was unremarkable. The stomach was then desufflated and the endoscope withdrawn. The patient tolerated the procedure well. She was taken back to the ICU in stable condition
[2021-06-20] MEDS: SENNOSIDES ORAL LIQD 8.8 MG/5 ML ORAL LIQD PO SCH ×2 (09:07→21:42)
[2021-06-20] MEDS: FAMOTIDINE 20 MG/2 ML INJ IV SCH ×2 (09:07→21:42)
[2021-06-20] MEDS: DOCUSATE SODIUM 100 MG/10 ML ORAL LIQD PO SCH ×2 (09:07→21:41)
[2021-06-20] MEDS: FREE WATER PO SCH ×4 (09:08→21:41)
[2021-06-20] MEDS: INSULIN GLARGINE 100 UNITS/ML SUB-Q SCH ×2 (09:08→21:41)
--- NOTE | 2021-06-20 10:55 | Progress Note ---
<VIOLETTE DEMPSEY - Last Filed: 06/20/21 14:34> Assessment and Plan Assessment and plan: This is a 76-year-old female with HTN, Coumadin use , dental caries, PVD s/p stenting right leg, DM, arthritis, depression, gout, and ? Pulmonary hypertension who presented to emergency department on 06/11 with complaints of pain to mandible area and throat and swelling. Work-up in the emergency department included CT scan of the head and neck which showed findings consistent with Jeremiah's angina and anesthesia was called for intubation. Anesthesia intubation attempts were unsuccessful and surgery was consulted for cricothyroidotomy which was unsuccessful in the emergency department and patient was taken to the OR for tracheostomy. Intubation procedure was complicated by development of pneumothorax and excessive bleeding due to supratherapeutic INR s/p multiple FFP's and vitamin K. Remains intubated and sedated in the ICU. Hospital course to date: 06/12: Patient received additional 2 units FFP and 1 unit PRBC and vitamin K today. Overnight critical care placed a femoral CVL. Patient sedated on fe ntanyl, propofol and Versed. Currently on Fabian-Synephrine and Levophed for blood pressure maintenance. Remains amatory support. Infectious disease consulted. Started on sliding scale insulin and recultured. COVID-19 PCR pending. Surgery at bedside to place chest tube. 06/13: Patient was taken back to the OR today for exchange cricothyroid to possible tracheostomy. Patient returned with ETT. Chest tube was changed to larger size in the OR. Patient was hypotensive, tachycardic, hypoxic in the OR and received hespan, albumin and an A-line. Upon arrival patient was increased to max dose Levophed for hypotension which has resolved. Titrating vasopressors as tolerated. Remains on sedation with 3 agents. Apparently patient was not ventilating her left lung Intra-Op. Noted to have subcu hematoma and trauma to postpharyngeal area. Questionable decrease cardiac wall motion noted in OR-> w ill order echocardiogram to further investigate. Patient received additional PRBC today. DIC panel resulted as normal. Patient BUN/creatinine did increase as well as noted to have lactic acidosis. May need IV bolus in addition to pressor use. Likely bronc with Pulmicort today as repeat CXR showed right possible pneumo hydrothorax 06/14: Antibiotics changed to Zosyn per ID, surgical packing removed from neck and makeshift Bodfish drain placed by surgery and old chronic thyroidectomy site. CXR was completed and RN heard gurgling and blood was noted on dressing. ST elevation noted on bedside monitor and patient was hypoxic. FiO2 increased to 100%. However shortly after patient lost her pulse and ACLS was initiated. Patient received 3 rounds of epinephrine and ROSC was achieved. Stat portable CXR showed resolution of lower lobe collapse on the left and stable right-sided chest tube with hemothorax. CCM updated family. Patient H/H noted to be 7.2/23.2 and did RN to transfuse prepared PRBC which [facility] blood bank. Bedside echo completed. 06/15: Off sedation, intermittently follows commands, remains on the prednisone. Surgery will reassess airway on Thursday to see if any further support is required. Urine studies indicate prerenal, given IV bolus and started on Clinimix today. 06/16: Patient restarted on fentanyl drip due to hypertension. Given more LR due to CR improvement post LR yesterday. Patient started on Lantus subcu after given one-time dose of Lantus. PICC placed today. Patient had a CT chest today which showed no mediasinusitis but extensive subcutaneous air. 06/17: General Surgery recommended transferring patient to a ENT specialized facility. Placed a call to [facility] [place], spoke with the motion picture equipment supervisor, Dr. Duckworth, who stated that a transfer is possible as long their ENT team accept the patient. Awaiting on a final response. Continue current supportive measures. Basal insulin adjusted for hyperglycemia. 06/18: JEREMIAS overnight. Hypertensive this am, PRN Hydralazine for SBP greater than 160. Remains hyperglycemic, patient is on IV steroids and TPN, basal insulin adjusted. Plan for possible transfer to [facility] once an ICU bed is available. 06/19: Low SPO2 and hypotension overnight required Levophed for a short time. Overnight CXR noted with no significant changed. Patient is stable this am and off pressors. Plan for possible Trach and PEG today by General Surgery. 06/20: s/p Trach and PEG. Some bleeding overnight s/p X1 dose of Vitamin K. The bleeding resolved this am, H&H remains stable. Attempted a SAT this am, patient went into SVT, HR in the 160-170 which resolved once sedations were resumed. Plan is to continue to sedation for now, attempt to wean off propofol for a RASS goal of 0 to -2. D/C CCM plan is to wean off sedation as tolerated for PST for possible extubation. Okay to use PEGT per Gen. Surgery. Nutrition consulted for TF management, TF to start tonight once current TPN bag is completed. BG remains elevated, continue current SSI and basal for now, will start tapering IV steroids tomorrow. FWF added for hyponatremia. Wean off pressors as tolerated for MAP above 65. Possible transfer to [facility] for ENT eval. Neuro: Sedated, h/o depression, arthritis -Sedated on propofol, & fentanyl -RASS goal 0 to -2 -Avoid delirium -Reorientation as needed -Maintain sleep-wake cycle -Plan for SAT/SBT Cardiac: S/p cardiac arrest, h/o htn, PVD s/p stenting Right leg -06/14 cardiac arrest with ROSC -S/p vasopressor support with Levophed and Fabian-Synephrine -Blood pressure monitoring per protocol -Pressure monitoring via A-line -06/13 Echocardiogram EF 65-70% Respiratory: Acute hypoxic respiratory failure, right pneumothorax -CCM consulted, appreciate recommendations -S/p emergent cricothyroid with surgery with 8.00 ETT -06/19 s/p Tracheostmy -A.m. vent settings:PRVC-30%,6,18,450 -CXR noted with increase subQ air, no pneumothorax; CT remains to continuous wall suction -Right chest tube replaced by surgery -CT to wall suction -Changed to larger bore on 06/13 -Postop CXR shows possible hydropneumothorax on right side -06/13 bronchoscopy showed possible blood clot in left lung which may be acting as mucous plug however it was left in place due to possible bleeding inside lung if removed. -CXR post cardiac arrest shows clearance of mucous plug -06/16 CT chest shows moderate right pneumothorax with collapse of right upper lobe, right thoracostomy tube terminates at the collapsed right upper lobe, bilateral bronchus opacities compatible with infectious/inflammatory etiology, bilateral small pleural effusion, extensive subcutaneous air, small fluid collection in the anterior mediastinum is nonspecific -VAP bundle -SPO2 monitoring : Acute kidney injury possibly secondary to vasomotor nephropathy hypernatremia -FWF added -Strict intake and output -Renally dose medications -Avoid nephrotoxic medications -Daily weights -Consider nephrology consult if worsens -Trend BMP ID: 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 dental caries -CT neck with contrast showed a significant right floor of mild swelling with extension into the submandibular and submental spaces, significant thickening and inflammation involving the right pharyngeal wall, with the parapharyngeal and retropharyngeal spaces at the level of the thyroid cartilage, epiglottis significantly swollen and so are the aryepiglottic folds resulting in significant airway narrowing at this level, no lymphadenopathy, symmetric submandibular and parathyroid glands, S few scattered caries but no periapical lucencies, nonspecific calcification along the right lateral oropharynx, no definite stone seen within the territory of the submandibular gland ducts, no suspicious rashes lesion -Infectious disease and general surgery consulted, appreciate recommendations -s/p cricothyroidectomy -Will follow surgery to direction and treatment of injury -Per surgery may have mucosal injury -Intra-Op findings include post pharyngeal swelling and bruising -Solu-Medrol 125 every 8 -Antibiotic therapy Zosyn -COVID-19 PCR negative -f/u blood culture -Monitor WBC and temperature curve -s/p 5L normal saline bolus in ED, 6 L LR bolus in ICU - repeat LR bolus today Heme: Coagulopathy, supratherapeutic INR, acute blood loss anemiq, possible component of hemorrhagic shock -Patient is on Coumadin at home -S/p 5 FFP, 7 PRBC, vitamin K x3 -Trend CBC -Presented with H/H of 10.3/34.6 and decreased to 6.7/22.4 -INR 8.18-> 4.55-> 2.1-> 1.23-> 1.16-> 1.31 -Monitor INR -Transfuse hemoglobin less than 7 -Monitor for signs of bleeding -SCDs to BLE while in bed -Avoid chemical anticoagulation in setting of recent blood loss anemia Endo: Hyperglycemia, h/o DM, gout -Patient is on TPN and on IV steroids -06/19 s/p PEG Tube placement- okay to use per Gen surgery -Nutrition consulted for TF management -Plan to initiated TF tonight once current TPN bag is completed -Continue high dose SSI Q6hrs and lantus BID -Start tapering IV steroids tomorrow -Avoid hypoglycemia The high probability of a clinically significant, sudden or life threatening det erioration of the [multi] system(s) required my full and direct attention, intervention and personal management. The aggregate critical care time was [60] minutes. This time is in addition to time spent performing reported procedures but includes the following: [x] Data Review and interpretation [x] Patient assessment and monitoring of vital signs [x] Documentation [x] Medication orders and management Disposition Plan: ICU Total Time Spent with Patient (Minutes): 60 History Interval history: Patient seen and examined at the bedside. Intubated and Sedated on propofol, fentanyl, and versed RASS -4. Still on TPN. S/p trach and PEG from yesterday. Patient experience some bleeding post procedure, s/p X1 dose of Vitamin K. Bleeding resolved this am, both trach and PEGT sites are intact, Worsening subQ air was also noted, CT remains on continuous wall suction, no air leak appreciated. Patient is also on low dose levophed gtt this am. Hospitalist Physical - Constitutional Vitals: Temp Pulse Resp BP Pulse Ox 98.1 F 95 H 16 101/48 100 06/20/21 07:48 06/20/21 10:15 06/20/21 10:15 06/20/21 10:15 06/20/21 10:15 General appearance: Present: no acute distress, obese, other (Intubated and Sedated) - EENT Eyes: Present: PERRL - Respiratory Respiratory effort: normal Respiratory: bilateral: diminished - Cardiovascular Rhythm: regular Heart Sounds: Present: S1 & S2 - Extremities Extremities: no ischemia, pulses intact, pulses symmetrical Extremity abnormal: edema - Peripheral Assessment Generalized Edema Type: Pitting Edema Degree: 3+ Capillary Refill: < 3 seconds Skin Temperature: Warm Peripheral Pulses: within normal limits - Abdominal General gastrointestinal: soft, non-distended, hypoactive bowel sounds - Integumentary Integumentary: Present: warm, dry - Psychiatric Psychiatric: other (Intubated and Sedated) - Neurologic Neurologic: other (Intubated and Sedated) - Allied Health Allied health notes reviewed: nursing HEART Score - HEART Score Troponin: Troponin T < 0.010 ng/mL (0.00-0.029) 06/11/21 23:21 Results - Labs CBC & Chem 7: 06/20/21 12:23 06/20/21 04:33 Labs: Laboratory Last Values WBC 22.3 K/mm3 (4.5-11.0) H 06/20/21 04:33 RBC 3.31 M/mm3 (3.65-5.03) L 06/20/21 04:33 Hgb 8.5 gm/dl (10.1-14.3) L 06/20/21 04:33 Hct 26.5 % (30.3-42.9) L 06/20/21 04:33 MCV 80 fl (79-97) 06/20/21 04:33 MCH 26 pg (28-32) L 06/20/21 04:33 MCHC 32 % (30-34) 06/20/21 04:33 RDW 21.5 % (13.2-15.2) H 06/20/21 04:33 Plt Count 302 K/mm3 (140-440) 06/20/21 04:33 Lymph % (Auto) 9.2 % (13.4-35.0) L 06/11/21 19:29 Sullivan % (Auto) 1.4 % (0.0-7.3) 06/11/21 19: Eos % (Auto) 0.2 % (0.0-4.3) 06/11/21 19: Baso % (Auto) 0.2 % (0.0-1.8) 06/11/21 19: Lymph # (Auto) 1.4 K/mm3 (1.2-5.4) 06/11/21 19: Sullivan # (Auto) 0.2 K/mm3 (0.0-0.8) 06/11/21 19: Eos # (Auto) 0.0 K/mm3 (0.0-0.4) 06/11/21 19: Baso # (Auto) 0.0 K/mm3 (0.0-0.1) 06/11/21 19: Add Manual Diff Complete 06/13/21 Unknown Total Counted 100 06/13/21 Unknown Seg Neutrophils % 89.0 % (40.0-70.0) H 06/11/21 19:29 Seg Neuts % (Manual) 88.0 % (40.0-70.0) H 06/13/21 Unknown Band Neutrophils % 2.0 % 06/13/21 Unknown Lymphocytes % (Manual) 4.0 % (13.4-35.0) L 06/13/21 Unknown Reactive Lymphs % (Man) 0 % 06/13/21 Unknown Monocytes % (Manual) 6.0 % (0.0-7.3) 06/13/21 Unknown Eosinophils % (Manual) 0 % (0.0-4.3) 06/13/21 Unknown Basophils % (Manual) 0 % (0.0-1.8) 06/13/21 Unknown Metamyelocytes % 0 % 06/13/21 Unknown Myelocytes % 0 % 06/13/21 Unknown Promyelocytes % 0 % 06/13/21 Unknown Blast Cells % 0 % 06/13/21 Unknown Nucleated RBC % Not Reportable 06/13/21 Unknown Seg Neutrophils # 14.0 K/mm3 (1.8-7.7) H 06/11/21 19:29 Seg Neutrophils # Man 19.8 K/mm3 (1.8-7.7) H 06/13/21 Unknown Band Neutrophils # 0.5 K/mm3 06/13/21 Unknown Lymphocytes # (Manual) 0.9 K/mm3 (1.2-5.4) L 06/13/21 Unknown Abs React Lymphs (Man) 0.0 K/mm3 06/13/21 Unknown Monocytes # (Manual) 1.4 K/mm3 (0.0-0.8) H 06/13/21 Unknown Eosinophils # (Manual) 0.0 K/mm3 (0.0-0.4) 06/13/21 Unknown Basophils # (Manual) 0.0 K/mm3 (0.0-0.1) 06/13/21 Unknown Metamyelocytes # 0.0 K/mm3 06/13/21 Unknown Myelocytes # 0.0 K/mm3 06/13/21 Unknown Promyelocytes # 0.0 K/mm3 06/13/21 Unknown Blast Cells # 0.0 K/mm3 06/13/21 Unknown WBC Morphology Not Reportable 06/13/21 Unknown Hypersegmented Neuts Not Reportable 06/13/21 Unknown Hyposegmented Neuts Not Reportable 06/13/21 Unknown Hypogranular Neuts Not Reportable 06/13/21 Unknown Smudge Cells Not Reportable 06/13/21 Unknown Toxic Granulation 2+ 06/13/21 Unknown Toxic Vacuolation Not Reportable 06/13/21 Unknown Dohle Bodies Not Reportable 06/13/21 Unknown Pelger-Huet Anomaly Not Reportable 06/13/21 Unknown Dennis Rods Not Reportable 06/13/21 Unknown Platelet Estimate Consistent w auto 06/13/21 Unknown Clumped Platelets Not Reportable 06/13/21 Unknown Plt Clumps, EDTA Not Reportable 06/13/21 Unknown Large Platelets Not Reportable 06/13/21 Unknown Giant Platelets Not Reportable 06/13/21 Unknown Platelet Satelliting Not Reportable 06/13/21 Unknown Plt Morphology Comment Not Reportable 06/13/21 Unknown RBC Morphology Not Reportable 06/13/21 Unknown Dimorphic RBCs Not Reportable 06/13/21 Unknown Polychromasia Few 06/13/21 Unknown Hypochromasia 2+ 06/13/21 Unknown Poikilocytosis Not Reportable 06/13/21 Unknown Anisocytosis 1+ 06/13/21 Unknown Microcytosis Not Reportable 06/13/21 Unknown Macrocytosis Not Reportable 06/13/21 Unknown Spherocytes Not Reportable 06/13/21 Unknown Pappenheimer Bodies Not Reportable 06/13/21 Unknown Sickle Cells Not Reportable 06/13/21 Unknown Target Cells Not Reportable 06/13/21 Unknown Tear Drop Cells Not Reportable 06/13/21 Unknown Ovalocytes Not Reportable 06/13/21 Unknown Stomatocytes Few 06/12/21 01:45 Helmet Cells Not Reportable 06/13/21 Unknown Salamanca-Rodeo Bodies Not Reportable 06/13/21 Unknown Cascade Rings Not Reportable 06/13/21 Unknown Nelsy Cells Not Reportable 06/13/21 Unknown Bite Cells Not Reportable 06/13/21 Unknown Crenated Cell Not Reportable 06/13/21 Unknown Elliptocytes Not Reportable 06/13/21 Unknown Acanthocytes (Spur) Not Reportable 06/13/21 Unknown Rouleaux Not Reportable 06/13/21 Unknown Hemoglobin C Crystals Not Reportable 06/13/21 Unknown Schistocytes Not Reportable 06/13/21 Unknown Malaria parasites Not Reportable 06/13/21 Unknown Edin Bodies Not Reportable 06/13/21 Unknown Hem Pathologist Commnt No 06/13/21 Unknown PT 18.3 Sec. (12.2-14.9) H 06/20/21 04:33 INR 1.37 (0.87-1.13) H 06/20/21 04:33 APTT 26.4 Sec. (24.2-36.6) 06/13/21 Unknown Fibrinogen 546 mg/dl (211-480) H 06/13/21 Unknown D-Dimer 1244.63 ng/mlDDU (0-234) H 06/13/21 Unknown ABG pH 7.401 pH Units (7.350-7.450) 06/19/21 04:50 POC ABG pCO2 25.6 mmHg (32.0-48.0) L 06/13/21 04:31 ABG pCO2 35.0 mm Hg 06/19/21 04:50 POC ABG pO2 138.8 mmHg (83-108) H 06/13/21 04:31 ABG pO2 78.9 mm Hg (80.0-90.0) L 06/19/21 04:50 POC ABG HCO3 21.4 06/13/21 04:31 ABG HCO3 21.2 mmol/L (20.0-26.0) 06/19/21 04:50 ABG O2 Saturation 97.0 % (95.0-99.0) 06/19/21 04:50 ABG O2 Content 10.2 (0.0-44) 06/19/21 04:50 POC ABG Base Excess -0.7 06/13/21 04:31 ABG Base Excess -3.2 mmol/L (-2.0-3.0) L 06/19/21 04:50 ABG Hemoglobin 7.6 gm/dl (12.0-16.0) L 06/19/21 04:50 ABG Oxyhemoglobin 98.1 (94-98) H 06/13/21 04:31 ABG Carboxyhemoglobin 1.3 % (0.0-5.0) 06/19/21 04:50 ABG Methemoglobin 0.5 % (0.0-1.5) 06/19/21 04:50 Oxyhemoglobin 95.3 % (95.0-99.0) 06/19/21 04:50 Carboxyhemoglobin 0.8 (0.5-1.5) 06/13/21 04:31 FiO2 30 % 06/19/21 04:50 FiO2 % 40.0 06/13/21 04:31 Sodium 148 mmol/L (137-145) H 06/20/21 04:33 Potassium 4.1 mmol/L (3.6-5.0) 06/20/21 04:33 Chloride 114.2 mmol/L (98-107) H 06/20/21 04:33 Carbon Dioxide 24 mmol/L (22-30) 06/20/21 04:33 Anion Gap 14 mmol/L 06/20/21 04:33 BUN 70 mg/dL (7-17) H 06/20/21 04:33 Creatinine 1.4 mg/dL (0.6-1.2) H 06/20/21 04:33 Estimated GFR 44 ml/min 06/20/21 04:33 BUN/Creatinine Ratio 50 % 06/20/21 04:33 Glucose 313 mg/dL (65-100) H 06/20/21 04:33 POC Glucose 288 mg/dL (70-105) H 06/20/21 05:27 Lactic Acid 5.30 mmol/L (0.7-2.0) H* 06/13/21 15:45 Calcium 8.2 mg/dL (8.4-10.2) L 06/20/21 04:33 Phosphorus 4.50 mg/dL (2.5-4.5) 06/20/21 04:33 Magnesium 2.50 mg/dL (1.7-2.3) H 06/20/21 04:33 Total Bilirubin 0.40 mg/dL (0.1-1.2) 06/15/21 03:56 AST 64 units/L (5-40) H 06/15/21 03:56 ALT 106 units/L (7-56) H 06/15/21 03:56 Alkaline Phosphatase 55 units/L (35-129) 06/15/21 03:56 Troponin T < 0.010 ng/mL (0.00-0.029) 06/11/21 23:21 C-Reactive Protein 3.30 mg/dL (0.00-1.30) H 06/16/21 04:32 Total Protein 5.1 g/dL (6.3-8.2) L 06/15/21 03:56 Albumin 2.9 g/dL (3.9-5) L 06/15/21 03:56 Albumin/Globulin Ratio 1.3 % 06/15/21 03:56 Triglycerides 189 mg/dL (2-149) H 06/14/21 06:15 Urine Color Yellow (Yellow) 06/12/21 17:00 Urine Turbidity Clear (Clear) 06/12/21 17:00 Urine pH 5.0 (5.0-7.0) 06/12/21 17:00 Ur Specific [place] 1.035 (1.003-1.030) H 06/12/21 17:00 Urine Protein 30 mg/dl mg/dL (Negative) 06/12/21 17:00 Urine Glucose (UA) 50 mg/dL (Negative) 06/12/21 17:00 Urine Ketones Tr mg/dL (Negative) 06/12/21 17:00 Urine Blood Neg (Negative) 06/12/21 17:00 Urine Nitrite Neg (Negative) 06/12/21 17:00 Urine Bilirubin Neg (Negative) 06/12/21 17:00 Urine Urobilinogen < 2.0 mg/dL (<2.0) 06/12/21 17:00 Ur Leukocyte Esterase Neg (Negative) 06/12/21 17:00 Urine WBC (Auto) < 1.0 /HPF (0.0-6.0) 06/12/21 17:00 Urine RBC (Auto) < 1.0 /HPF (0.0-6.0) 06/12/21 17:00 Urine Creatinine 81.1 mg/dL (0.1-20.0) H 06/15/21 10:40 Urine Sodium 42 mmol/L 06/15/21 10:40 Coronavirus (PCR) Negative (Negative) 06/12/21 09:50 Blood Type O POSITIVE 06/11/21 19:20 Antibody Screen Negative 06/11/21 19:20 Crossmatch See Detail 06/11/21 19:20 Lujan/IV: Voiding Method Indwelling Catheter Active Medications - Current Medications Current Medications: Generic Name Dose Route Start Last Admin Trade Name Freq PRN Reason Stop Dose Admin Lipase/Protease/Amylase 1 each 06/19/21 19:20 Lipase 10,500/Protease 25,000/Amylase 43,750 (Units) Dr Melgar FEEDTUBE PRN PRN For Clogged Feeding Tube Docusate Sodium 100 mg 06/20/21 10:00 02/17/22 09:07 Docusate Sodium 100 Mg/10 Ml Oral Liqd PO 100 mg BID JOLENE Administration Famotidine 10 mg 06/15/21 22:00 06/20/21 09:07 Famotidine 20 Mg/2 Ml Inj IV 10 mg BID JOLENE Administration Fentanyl 50 mcg 06/11/21 22:55 06/15/21 16:50 Fentanyl 100 Mcg/2 Ml Inj IV 50 mcg Q10MIN PRN Administration ANALGESIA Hydralazine HCl 10 mg 06/16/21 08:00 06/19/21 03:02 Hydralazine 20 Mg/1 Ml Inj IV 10 mg Q4H PRN Administration Hypertension Hydromorphone HCl 0.5 mg 06/11/21 20:42 Hydromorphone 1 Mg/1 Ml Inj IV Q3H PRN Pain , Severe (7-10) MIDAZOLAM/NS Drip 100mg/100ml 100 mg in 100 mls @ 1 mls/hr 06/11/21 23:00 06/20/21 09:54 Midazolam/Ns Drip 100mg/100ml IV 0 mg/hr TITR JOLENE 0 mls/hr Titration Protocol 1 MG/HR Fentanyl Citrate 2,000 mcg in 100 mls @ 5.466 mls/hr 06/11/21 23:00 06/20/21 10:12 Fentanyl Drip Premix IV 0 mcg/kg/hr TITR JOLENE 0 mls/hr Titration Protocol 1 MCG/KG/HR Phenylephrine HCl 100 mg/ 100 mls @ 3 mls/hr 06/11/21 23:45 06/14/21 07:00 Sodium Chloride IV 0 mcg/min TITR JOLENE 0 mls/hr Titration Protocol 50 MCG/MIN NORepinephrine/NS 8 MG-250 ML 8 mg in 250 mls @ 3.75 mls/hr 06/12/21 02:00 06/20/21 10:25 Norepinephrine/Ns 8 Mg-250 Ml (Double Conc) IV 0 mcg/min TITRATE JOLENE 0 mls/hr Titration Protocol 2 MCG/MIN Propofol 1,000 mg in 100 mls @ 3.279 mls/hr 06/12/21 03:00 06/20/21 10:12 Diprivan 10 Mg/Ml IV 0 mcg/kg/min TITR JOLENE 0 mls/hr Titration Protocol 5 MCG/KG/MIN Piperacillin Sod/Tazobactam Sod 4.5 gm in 100 mls @ 200 mls/hr 06/19/21 12:00 06/20/21 05:14 Zosyn/Ns 4.5gm/100ml IV 200 mls/hr Q6HR JOLENE Administration Protocol Amino Acids/Electrolytes/Dextrose 1,999.92 mls @ 83.33 mls/hr 06/19/21 20:00 06/19/21 20:36 Tpn Adult IV 06/20/21 19:59 83.33 mls/hr DAILY@2000 JOLENE Administration Protocol Insulin Glargine 25 units 06/19/21 10:00 06/20/21 09:08 Insulin Glargine 100 Units/Ml SUB-Q 25 units BID JOLENE Administration Insulin Human Lispro 0 unit 06/12/21 12:00 06/20/21 06:01 Insulin Lispro 100 Unit/Ml SUB-Q 6 unit Q6HR JOLENE Administration Protocol Methylprednisolone Sodium Succinate 125 mg 06/11/21 22:00 06/20/21 05:14 Methylprednisolone Sod Succinate 125 Mg/2 Ml Inj IV 125 mg Q8HR JOLENE Administration Metoclopramide HCl 10 mg 06/11/21 20:42 Metoclopramide 10 Mg/2 Ml Inj IV Q6H PRN Nausea And Vomiting Ondansetron HCl 4 mg 06/11/21 20:42 Ondansetron 4 Mg/2 Ml Inj IV Q3H PRN Nausea And Vomiting Senna 17.6 mg 06/20/21 10:00 06/20/21 09:07 Sennosides Oral Liqd 8.8 Mg/5 Ml Oral Liqd PO 17.6 mg Q12HR JOLENE Administration Simple Syrup 15 ml 06/19/21 19:20 Simple Syrup 15 Ml FEEDTUBE PRN PRN Hypoglycemia Simple Syrup 30 ml 06/19/21 19:20 Simple Syrup 15 Ml FEEDTUBE PRN PRN Hypoglycemia Sodium Bicarbonate 325 mg 06/19/21 19:20 Sodium Bicarbonate 325 Mg Tab FEEDTUBE PRN PRN For Clogged Feeding Tube Sodium Chloride 10 ml 06/11/21 22:00 06/20/21 09:08 Sodium Chloride 0.9% 10 Ml Flush Syringe IV 10 ml BID JOLENE Administration Sodium Chloride 10 ml 06/11/21 20:42 Sodium Chloride 0.9% 10 Ml Flush Syringe IV PRN PRN LINE FLUSH Nutrition/Malnutrition Assess - Dietary Evaluation Nutrition/Malnutrition Findings: Nutrition Notes Start: 06/16/21 12:10 Freq: Status: Active Protocol: Document 06/19/21 10:06 CANDIDO (Rec: 06/19/21 12:44 CANDIDO [id number]) Nutrition Notes Initial or Follow up Reassessment Current Diagnosis Diabetes,Sepsis,Hypertension, Respiratory Failure Other Pertinent Diagnosis Jeremiah's Angina, (R) Pneumothorax, Coagulopathy, Cardiac Arrest, Gout... Current Diet PPN (since 06/16), TPN @ 83. 33ml/hr (since 06/17). Labs/Tests 06/19: Na 148, Cl 114.9, CO2 19, BUN 59, Glu 345, Ca 8.1, Phos 4.6, Mg 2.4/ Pertinent Medications 06/19: Insulin, Propofol 1000 mg in 100 ml @ 19.677 ml/hr ( 519 Kcal), others nutritionally unremarkable. Height 5 ft 8 in Weight 109.316 kg [place] Body Weight (kg) 63.63 BMI 36.6 Weight change and time frame No body weight change reported . Weight Status Obese Subjective/Other Information RD consult for routine F/u on TPN advancement. Femoral PICC line well tolerated, according to RN notes. Pt continues on mechanical ventilation. No report on HD at the time. Pt accepted to be transferred to [facility] for ENT evaluation, but no beds available at the time according to Progress notes. Percent of energy/protein needs met: Prescribed TPN @ 83.33ml/hr provides for energy/protein needs (680 Kcal/85 g) during LOS; additionally, Propofol adds 519 Kcal. A tolat proportion of 94% Kcal and 67% AA. Burn Absent Trauma Absent GI Symptoms Other Difficulty In Swallowing,Chewing Food Allergy No Skin Integrity/Comment Surgical wounds. Current % PO Other Minimum of two criteria No #1 Nutrition Diagnosis Inadequate oral intake Diagnosis Progress(for reassessment Continues documentation) Is patient on ventilator? Yes Is Patient Ambulatory and/or Out of Bed No REE-([facility]-confined to bed) [phone] Calculation Used for Recommendations 65-70% energy needs Additional Notes Energy needs: 1,280-1,379 Kcal /day. Protein: 2 g/Kg IBW; 127 g/day . Fluids: 1 ml/Kcal, or as per MD. Nutrition Intervention Nutrition Support: Continue TPN @ 83.33ml/hr: MVI , thiamine, 5% dextrose, 4.3% amino acids, 0mEq Na, 80mEq K, 0mEq Mg, 10mEq Ca, 0mmol Phos , 0% chloride/100% acetate. Osmolality: 765. Kcal 680 Protein (gm) 85 Carbohydrates (gm) 100 Fat (gm) 0 Fluid (mL) 2,000 Fiber (gm) 0 % RDI: 53% Kcal; 67% AA. Goal #1 Provide at least 75% of energy /protein needs through Enteral Feeding during LOS. Goal #2 Maintain body weight within +/ -3% of admission body weight during LOS. Follow-Up By: 06/20/21 Additional Comments Continue monitoring TPN tolerance and BM, ventilation and HD status. BMP, Phos, and Mg labs ordered . <MIKE CORTEZ - Last Filed: 06/21/21 07:21> Assessment and Plan Assessment and plan: I saw and evaluated the patient. I agree with the findings and the plan of care as documented in the Nurse Practitioner's~note, with the following corrections and additions. Hospitalist Physical - Constitutional Vitals: Temp Pulse Resp BP Pulse Ox 97.9 F 75 14 145/71 99 06/21/21 03:33 06/21/21 06:00 06/21/21 06:00 06/21/21 06:00 06/21/21 06:00 HEART Score - HEART Score Troponin: Troponin T < 0.010 ng/mL (0.00-0.029) 06/11/21 23:21 Results - Labs CBC & Chem 7: 06/21/21 04:42 06/21/21 04:42 Labs: Laboratory Last Values WBC 15.1 K/mm3 (4.5-11.0) H 06/21/21 04:42 RBC 2.84 M/mm3 (3.65-5.03) L 06/21/21 04:42 Hgb 7.3 gm/dl (10.1-14.3) L 06/21/21 04:42 Hct 23.1 % (30.3-42.9) L 06/21/21 04:42 MCV 81 fl (79-97) 06/21/21 04:42 MCH 26 pg (28-32) L 06/21/21 04:42 MCHC 32 % (30-34) 06/21/21 04:42 RDW 21.5 % (13.2-15.2) H 06/21/21 04:42 Plt Count 231 K/mm3 (140-440) 06/21/21 04:42 Lymph % (Auto) 3.5 % (13.4-35.0) L 06/21/21 04:42 Sullivan % (Auto) 11.7 % (0.0-7.3) H 06/21/21 04:42 Eos % (Auto) 0.0 % (0.0-4.3) 06/21/21 04:42 Baso % (Auto) 0.1 % (0.0-1.8) 06/21/21 04:42 Lymph # (Auto) 0.5 K/mm3 (1.2-5.4) L 06/21/21 04:42 Sullivan # (Auto) 1.8 K/mm3 (0.0-0.8) H 06/21/21 04:42 Eos # (Auto) 0.0 K/mm3 (0.0-0.4) 06/21/21 04:42 Baso # (Auto) 0.0 K/mm3 (0.0-0.1) 06/21/21 04:42 Add Manual Diff Complete 06/13/21 Unknown Total Counted 100 06/13/21 Unknown Seg Neutrophils % 84.7 % (40.0-70.0) H 06/21/21 04:42 Seg Neuts % (Manual) 88.0 % (40.0-70.0) H 06/13/21 Unknown Band Neutrophils % 2.0 % 06/13/21 Unknown Lymphocytes % (Manual) 4.0 % (13.4-35.0) L 06/13/21 Unknown Reactive Lymphs % (Man) 0 % 06/13/21 Unknown Monocytes % (Manual) 6.0 % (0.0-7.3) 06/13/21 Unknown Eosinophils % (Manual) 0 % (0.0-4.3) 06/13/21 Unknown Basophils % (Manual) 0 % (0.0-1.8) 06/13/21 Unknown Metamyelocytes % 0 % 06/13/21 Unknown Myelocytes % 0 % 06/13/21 Unknown Promyelocytes % 0 % 06/13/21 Unknown Blast Cells % 0 % 06/13/21 Unknown Nucleated RBC % Not Reportable 06/13/21 Unknown Seg Neutrophils # 12.8 K/mm3 (1.8-7.7) H 06/21/21 04:42 Seg Neutrophils # Man 19.8 K/mm3 (1.8-7.7) H 06/13/21 Unknown Band Neutrophils # 0.5 K/mm3 06/13/21 Unknown Lymphocytes # (Manual) 0.9 K/mm3 (1.2-5.4) L 06/13/21 Unknown Abs React Lymphs (Man) 0.0 K/mm3 06/13/21 Unknown Monocytes # (Manual) 1.4 K/mm3 (0.0-0.8) H 06/13/21 Unknown Eosinophils # (Manual) 0.0 K/mm3 (0.0-0.4) 06/13/21 Unknown Basophils # (Manual) 0.0 K/mm3 (0.0-0.1) 06/13/21 Unknown Metamyelocytes # 0.0 K/mm3 06/13/21 Unknown Myelocytes # 0.0 K/mm3 06/13/21 Unknown Promyelocytes # 0.0 K/mm3 06/13/21 Unknown Blast Cells # 0.0 K/mm3 06/13/21 Unknown WBC Morphology Not Reportable 06/13/21 Unknown Hypersegmented Neuts Not Reportable 06/13/21 Unknown Hyposegmented Neuts Not Reportable 06/13/21 Unknown Hypogranular Neuts Not Reportable 06/13/21 Unknown Smudge Cells Not Reportable 06/13/21 Unknown Toxic Granulation 2+ 06/13/21 Unknown Toxic Vacuolation Not Reportable 06/13/21 Unknown Dohle Bodies Not Reportable 06/13/21 Unknown Pelger-Huet Anomaly Not Reportable 06/13/21 Unknown Dennis Rods Not Reportable 06/13/21 Unknown Platelet Estimate Consistent w auto 06/13/21 Unknown Clumped Platelets Not Reportable 06/13/21 Unknown Plt Clumps, EDTA Not Reportable 06/13/21 Unknown Large Platelets Not Reportable 06/13/21 Unknown Giant Platelets Not Reportable 06/13/21 Unknown Platelet Satelliting Not Reportable 06/13/21 Unknown Plt Morphology Comment Not Reportable 06/13/21 Unknown RBC Morphology Not Reportable 06/13/21 Unknown Dimorphic RBCs Not Reportable 06/13/21 Unknown Polychromasia Few 06/13/21 Unknown Hypochromasia 2+ 06/13/21 Unknown Poikilocytosis Not Reportable 06/13/21 Unknown Anisocytosis 1+ 06/13/21 Unknown Microcytosis Not Reportable 06/13/21 Unknown Macrocytosis Not Reportable 06/13/21 Unknown Spherocytes Not Reportable 06/13/21 Unknown Pappenheimer Bodies Not Reportable 06/13/21 Unknown Sickle Cells Not Reportable 06/13/21 Unknown Target Cells Not Reportable 06/13/21 Unknown Tear Drop Cells Not Reportable 06/13/21 Unknown Ovalocytes Not Reportable 06/13/21 Unknown Stomatocytes Few 06/12/21 01:45 Helmet Cells Not Reportable 06/13/21 Unknown Salamanca-Rodeo Bodies Not Reportable 06/13/21 Unknown Cascade Rings Not Reportable 06/13/21 Unknown Nelsy Cells Not Reportable 06/13/21 Unknown Bite Cells Not Reportable 06/13/21 Unknown Crenated Cell Not Reportable 06/13/21 Unknown Elliptocytes Not Reportable 06/13/21 Unknown Acanthocytes (Spur) Not Reportable 06/13/21 Unknown Rouleaux Not Reportable 06/13/21 Unknown Hemoglobin C Crystals Not Reportable 06/13/21 Unknown Schistocytes Not Reportable 06/13/21 Unknown Malaria parasites Not Reportable 06/13/21 Unknown Edin Bodies Not Reportable 06/13/21 Unknown Hem Pathologist Commnt No 06/13/21 Unknown PT 18.3 Sec. (12.2-14.9) H 06/20/21 04:33 INR 1.37 (0.87-1.13) H 06/20/21 04:33 APTT 26.4 Sec. (24.2-36.6) 06/13/21 Unknown Fibrinogen 546 mg/dl (211-480) H 06/13/21 Unknown D-Dimer 1244.63 ng/mlDDU (0-234) H 06/13/21 Unknown ABG pH 7.426 pH Units (7.350-7.450) 06/21/21 04:20 POC ABG pCO2 25.6 mmHg (32.0-48.0) L 06/13/21 04:31 ABG pCO2 35.1 mm Hg 06/21/21 04:20 POC ABG pO2 138.8 mmHg (83-108) H 06/13/21 04:31 ABG pO2 98.5 mm Hg (80.0-90.0) H 06/21/21 04:20 POC ABG HCO3 21.4 06/13/21 04:31 ABG HCO3 22.6 mmol/L (20.0-26.0) 06/21/21 04:20 ABG O2 Saturation 97.7 % (95.0-99.0) 06/21/21 04:20 ABG O2 Content 9.9 (0.0-44) 06/21/21 04:20 POC ABG Base Excess -0.7 06/13/21 04:31 ABG Base Excess -1.6 mmol/L (-2.0-3.0) 06/21/21 04:20 ABG Hemoglobin 7.2 gm/dl (12.0-16.0) L 06/21/21 04:20 ABG Oxyhemoglobin 98.1 (94-98) H 06/13/21 04:31 ABG Carboxyhemoglobin 1.7 % (0.0-5.0) 06/21/21 04:20 ABG Methemoglobin 0.5 % (0.0-1.5) 06/21/21 04:20 Oxyhemoglobin 95.5 % (95.0-99.0) 06/21/21 04:20 Carboxyhemoglobin 0.8 (0.5-1.5) 06/13/21 04:31 FiO2 30 % 06/21/21 04:20 FiO2 % 40.0 06/13/21 04:31 Sodium 151 mmol/L (137-145) H 06/21/21 04:42 Potassium 4.2 mmol/L (3.6-5.0) 06/21/21 04:42 Chloride 117.2 mmol/L (98-107) H 06/21/21 04:42 Carbon Dioxide 21 mmol/L (22-30) L 06/21/21 04:42 Anion Gap 17 mmol/L 06/21/21 04:42 BUN 75 mg/dL (7-17) H 06/21/21 04:42 Creatinine 1.6 mg/dL (0.6-1.2) H 06/21/21 04:42 Estimated GFR 38 ml/min 06/21/21 04:42 BUN/Creatinine Ratio 47 % 06/21/21 04:42 Glucose 216 mg/dL (65-100) H 06/21/21 04:42 POC Glucose 190 mg/dL (70-105) H 06/21/21 05:08 Lactic Acid 5.30 mmol/L (0.7-2.0) H* 06/13/21 15:45 Calcium 7.9 mg/dL (8.4-10.2) L 06/21/21 04:42 Phosphorus 3.20 mg/dL (2.5-4.5) D 06/21/21 04:42 Magnesium 2.60 mg/dL (1.7-2.3) H 06/21/21 04:42 Total Bilirubin 0.40 mg/dL (0.1-1.2) 06/15/21 03:56 AST 64 units/L (5-40) H 06/15/21 03:56 ALT 106 units/L (7-56) H 06/15/21 03:56 Alkaline Phosphatase 55 units/L (35-129) 06/15/21 03:56 Troponin T < 0.010 ng/mL (0.00-0.029) 06/11/21 23:21 C-Reactive Protein 3.30 mg/dL (0.00-1.30) H 06/16/21 04:32 Total Protein 5.1 g/dL (6.3-8.2) L 06/15/21 03:56 Albumin 2.9 g/dL (3.9-5) L 06/15/21 03:56 Albumin/Globulin Ratio 1.3 % 06/15/21 03:56 Triglycerides 254 mg/dL (2-149) H 06/21/21 04:42 Urine Color Yellow (Yellow) 06/12/21 17:00 Urine Turbidity Clear (Clear) 06/12/21 17:00 Urine pH 5.0 (5.0-7.0) 06/12/21 17:00 Ur Specific [place] 1.035 (1.003-1.030) H 06/12/21 17:00 Urine Protein 30 mg/dl mg/dL (Negative) 06/12/21 17:00 Urine Glucose (UA) 50 mg/dL (Negative) 06/12/21 17:00 Urine Ketones Tr mg/dL (Negative) 06/12/21 17:00 Urine Blood Neg (Negative) 06/12/21 17:00 Urine Nitrite Neg (Negative) 06/12/21 17:00 Urine Bilirubin Neg (Negative) 06/12/21 17:00 Urine Urobilinogen < 2.0 mg/dL (<2.0) 06/12/21 17:00 Ur Leukocyte Esterase Neg (Negative) 06/12/21 17:00 Urine WBC (Auto) < 1.0 /HPF (0.0-6.0) 06/12/21 17:00 Urine RBC (Auto) < 1.0 /HPF (0.0-6.0) 06/12/21 17:00 Urine Creatinine 81.1 mg/dL (0.1-20.0) H 06/15/21 10:40 Urine Sodium 42 mmol/L 06/15/21 10:40 Coronavirus (PCR) Negative (Negative) 06/12/21 09:50 Blood Type O POSITIVE 06/11/21 19:20 Antibody Screen Negative 06/11/21 19:20 Crossmatch See Detail 06/11/21 19:20 Lujan/IV: Voiding Method Indwelling Catheter Active Medications - Current Medications Current Medications: Generic Name Dose Route Start Last Admin Trade Name Freq PRN Reason Stop Dose Admin Lipase/Protease/Amylase 1 each 06/19/21 19:20 Lipase 10,500/Protease 25,000/Amylase 43,750 (Units) Dr Melgar FEEDTUBE PRN PRN For Clogged Feeding Tube Docusate Sodium 100 mg 06/20/21 10:00 06/20/21 21:41 Docusate Sodium 100 Mg/10 Ml Oral Liqd PO 100 mg BID JOLENE Administration Famotidine 10 mg 06/15/21 22:00 06/20/21 21:42 Famotidine 20 Mg/2 Ml Inj IV 10 mg BID JOLENE Administration Fentanyl 50 mcg 06/11/21 22:55 06/20/21 11:07 Fentanyl 100 Mcg/2 Ml Inj IV 50 mcg Q10MIN PRN Administration ANALGESIA Fentanyl 50 mcg 06/20/21 12:00 Fentanyl 100 Mcg/2 Ml Inj IV Q2HR PRN For CPOT greater than 3 Hydralazine HCl 10 mg 06/16/21 08:00 06/19/21 03:02 Hydralazine 20 Mg/1 Ml Inj IV 10 mg Q4H PRN Administration Hypertension Hydromorphone HCl 0.5 mg 06/11/21 20:42 Hydromorphone 1 Mg/1 Ml Inj IV Q3H PRN Pain , Severe (7-10) Fentanyl Citrate 2,000 mcg in 100 mls @ 5.466 mls/hr 06/11/21 23:00 06/21/21 03:25 Fentanyl Drip Premix IV 4 mcg/kg/hr TITR JOLENE 21.863 mls/hr Administration Protocol 1 MCG/KG/HR Phenylephrine HCl 100 mg/ 100 mls @ 3 mls/hr 06/11/21 23:45 06/14/21 07:00 Sodium Chloride IV 0 mcg/min TITR JOLENE 0 mls/hr Titration Protocol 50 MCG/MIN NORepinephrine/NS 8 MG-250 ML 8 mg in 250 mls @ 3.75 mls/hr 06/12/21 02:00 12:13 Norepinephrine/Ns 8 Mg-250 Ml (Double Conc) IV 0 mcg/min TITRATE JOLENE 0 mls/hr Titration Protocol 2 MCG/MIN Propofol 1,000 mg in 100 mls @ 3.279 mls/hr 06/12/21 03:00 06/21/21 05:15 Diprivan 10 Mg/Ml IV 10 mcg/kg/min TITR JOLENE 6.559 mls/hr Titration Protocol 5 MCG/KG/MIN Piperacillin Sod/Tazobactam Sod 4.5 gm in 100 mls @ 200 mls/hr 06/19/21 12:00 06/21/21 05:43 Zosyn/Ns 4.5gm/100ml IV 200 mls/hr Q6HR [facility] Administration Protocol Insulin Glargine 25 units 06/19/21 10:00 06/20/21 21:41 Insulin Glargine 100 Units/Ml SUB-Q 25 units BID JOLENE Administration Insulin Human Lispro 0 unit 06/12/21 12:00 06/21/21 05:44 Insulin Lispro 100 Unit/Ml SUB-Q 3 unit Q6HR [facility] Administration Protocol Methylprednisolone Sodium Succinate 60 mg 06/21/21 06:00 06/21/21 05:44 Methylprednisolone Sod Succinate 125 Mg/2 Ml Inj IV 60 mg Q8HR JOLENE Administration Metoclopramide HCl 10 mg 06/11/21 20:42 Metoclopramide 10 Mg/2 Ml Inj IV Q6H PRN Nausea And Vomiting Ondansetron HCl 4 mg 06/11/21 20:42 Ondansetron 4 Mg/2 Ml Inj IV Q3H PRN Nausea And Vomiting Senna 17.6 mg 06/20/21 10:00 06/20/21 21:42 Sennosides Oral Liqd 8.8 Mg/5 Ml Oral Liqd PO Not Given Q12HR JOLENE Simple Syrup 15 ml 06/19/21 19:20 Simple Syrup 15 Ml FEEDTUBE PRN PRN Hypoglycemia Simple Syrup 30 ml 06/19/21 19:20 Simple Syrup 15 Ml FEEDTUBE PRN PRN Hypoglycemia Sodium Bicarbonate 325 mg 06/19/21 19:20 Sodium Bicarbonate 325 Mg Tab FEEDTUBE PRN PRN For Clogged Feeding Tube Sodium Chloride 10 ml 06/11/21 22:00 06/20/21 21:42 Sodium Chloride 0.9% 10 Ml Flush Syringe IV 10 ml BID JOLENE Administration Sodium Chloride 10 ml 06/11/21 20:42 Sodium Chloride 0.9% 10 Ml Flush Syringe IV PRN PRN LINE FLUSH Nutrition/Malnutrition Assess - Dietary Evaluation Nutrition/Malnutrition Findings: Nutrition Notes Start: 06/16/21 12:10 Freq: Status: Active Protocol: Document 06/20/21 12:06 CANDIDO (Rec: 06/20/21 12:45 CANDIDO [id number]) Nutrition Notes Need for Assessment generated from: MD Order Initial or Follow up Assessment Current Diagnosis Diabetes,Sepsis,Hypertension, Respiratory Failure Other Pertinent Diagnosis Jeremiah's Angina, (R) Pneumothorax, Coagulopathy, Cardiac Arrest, Gout... Current Diet TF-Promote @ 47 ml/hr (from D 06/20). Labs/Tests 06/20: Na 148, Cl 114.2, BUN 70, Crea 1.4, Glu 313, Ca 8.2, Mg 2.5. Pertinent Medications 06/20: Insulin, Propofol 1000 mg in 100 ml @ 9.838 ml/hr ( 260 Kcal), others nutritionally unremarkable. Height 5 ft 8 in Weight 109.316 kg [place] Body Weight (kg) 63.63 BMI 36.6 Weight change and time frame No body weight change reported . Weight Status Obese Subjective/Other Information RD consult for write/manage TF . PEG tube placed 06/19 well tolerated, MD order to advance to TF and d/c TPN. Pt continues on Mechanical Ventilation. Pt still waiting bed at [facility]. Percent of energy/protein needs met: Prescribed TF-Promote @ 47 ml/ hr provides for energy/protein needs (1,116 Kcal/70 g) during LOS; additionally, Propofol adds 260 Kcal. A total proportion of 100% Kcal and 91% AA. Burn Absent Trauma Absent GI Symptoms Other Difficulty In Swallowing,Chewing Food Allergy No Skin Integrity/Comment Surgical wounds. Current % PO Other Minimum of two criteria No #1 Nutrition Diagnosis Inadequate oral intake Comments: PEG tube placed 06/19 well tolerated, MD order to advance to TF and d/c TPN. Diagnosis Progress(for reassessment Continues documentation) Is patient on ventilator? Yes Is Patient Ambulatory and/or Out of Bed No REE-([facility]-confined to bed) [phone] Additional Notes Protein: 1.2-2 g/Kg IBW; 77- 127 g/day. Fluids: 1 ml/Kcal, or as per MD. Nutrition Intervention Nutrition Support: Start Promote @ 47 ml/hr. Flush: 75 ml water Q 4 hr, or as per MD. Kcal 1,116 Protein (gm) 70 Carbohydrates (gm) 145 Fat (gm) 29 Fluid (mL) 936 Fiber (gm) 0 % RDI: 81% Kcal; 91% AA. Goal #1 Provide at least 75% of energy /protein needs through Enteral Feeding during LOS. Goal #2 Maintain body weight within +/ -3% of admission body weight during LOS. Follow-Up By: 06/22/21 Additional Comments When pertinent, monitor TF tolerance and BM.
[2021-06-20] MEDS: fentaNYL 100 MCG/2 ML INJ IV PRN (11:07)
--- NOTE | 2021-06-20 12:01 | Progress Note ---
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 06/20/21: Restart some sedation. At least pain and maybe diprovan. Would like to wake patient up at some point and attempt some PSV trials. Labs are off this am. Large bump in white count but no fever, also no diff drawn. Could be error vs steroid related but this is in just 24 hours. Will repeat tomorrow. If spikes a temp neves culture as well. Small bump in Cr but still in normal range. Will watch. Now that peg in place, tube feeds and free water flushes. Still on list for [facility]. Patient has been steroids greater than 7 days so will have to wean. Can drop to 60q8 starting tomorrow. Prognosis still remains guarded. 06/19/21: surgery to attempt trach and peg today. Still will ask to keep on transfer list for [facility] as her other issues still need to be addressed. If able to place peg, can stop clinimix, give free water and start tube feeds. Prognosis remains guarded. pH better with drop in tidal volume. 06/18/21: [facility] has agreed to accept but no ICU beds available at this time. Spoke with Dr. Vasquez yesterday and Dr. Patricia spoke with ENT there. Spoke with RT this am and patient did have a leak when cuff let down and her tidal volumes dropped to below 100. Patient remains on abx and steriods. Will consider lightening sedation tomorrow and seeing how patient does if cuff leak persists. Dropped tidal volumes to 450. Continue PPN for now. 06/17/21: spoke with surgery and they feel transfer is reasonable. I have reached out to [facility] and [facility] has spoken with someone from [place]. Await to hear back from them. Continue supportive measures and adequate sedation for pain control. No PSV trials as of yet. Blood sugar control, increase lantus. Most likely secondary to steroids. Continue abx therapy. Guarded prognosis. 06/16/21: Renal function improved with fluids. [facility]MS to give more fluids (LR) today which I agree with. FeNa is =0.7. Should be fluid responsive. Continue clinimix. Needs long acting insulin. Agree with lantus. Asked nursing to increase sedation now that we know that patient's mental status is stable. Picc today. Air leak test vs Neck CT on tomorrow. 06/15/21: Hopeful with worsening renal function ( likely from code on yesterday) that sedatives are just lingering from that. Still making good urine but output has fallen off. Will send urine sodium and urine cr to check Fena. Most likely this is prerenal. ordered renal ultrasound as well. Continue abx and steroids. Will start clinimix today. This should help with the free water piece. Will give another liter bolus of LR right now. Keep sedation off for now. Guarded prognosis. 06/14/21: Will discuss with surgery future plans. They have ordered steroids to help with inflammation and abx continue. All others appears stable and no acute evidence of bleeding at this time. Follow up surgery recs if any new ones. Guarded prognosis. 06/13/21: Patient to back to OR today. BLood transfusion. Will send DIC panel and may need to given cryo if over 6 units of PRBC's given. Patient will likely need trach and peg as we need to address nutrition. Chest tube placed, large bore now. Patient now with right sided effusion. Hemothorax???. Will continue to monitor output. Needs picc line as femoral should come out soon. Continue pressors. Continue sedation for pain control and comfort. Guarded prognosis. Surgery comfortable with neck and current situation so they have not request transfer. 1. Placed right femoral central line. pressors can run through this. 2. Repeat chemistry stat given bicarb of 8 and blood sugar of greater than 600. Ordering FSBS now. Earlier bicarb was 25. If accurate will need bicarb drip and vasopressin but not sure as pH on blood gas was normal done around the same time. 3. Coagulopathy is improving. INR down to 4.55 and PTT and pT improving. Will continue to give FFP. Ordered more vitamin K. H/H is stable but patient is oozing from neck and mouth. 4. Vasopressor for blood pressure. Need to keep map 65 and greater 5. Lujan is needed for accurate I/O 6. Surgery called by [facility] about current CT situation. They state they will reassess in the am. I have reviewed the images myself. If I can position the patient safely without compromising the airway after adequate sedation, may consider placing chest tube now as INR is better and FFP is hanging. Patient is morbidly obese so shits could move the ET tube so if not safe, will wait until surgery comes in the morning. 7. Would not attempt to pass OG or NG tube given current situation in neck 8. Will discuss with surgery tomorrow but I feel this patient should be transferred to a tertiary care facility with ENT as we do not have that service here. CCT 31 minutes. Subjective Date of service: 06/20/21 Interval history: Patient successfully trached and pegged yesterday. Attempted to stop all sedation this am and patient had SVT with HR in the 160's. BP stable. Objective Vital Signs - 12hr 06/20/21 06/20/21 06/20/21 00:00 00:07 00:11 Temperature Pulse Rate 69 67 67 Pulse Rate [ 50 L From Monitor] Respiratory 18 18 Rate Blood Pressure 85/41 85/41 79/42 O2 Sat by Pulse 100 100 100 Oximetry O2 Sat by Pulse Oximetry [ Assessment] 06/20/21 06/20/21 06/20/21 00:15 00:30 00:45 Temperature Pulse Rate 67 66 68 Pulse Rate [ From Monitor] Respiratory 18 18 18 Rate Blood Pressure 85/41 119/53 119/53 O2 Sat by Pulse 100 100 100 Oximetry O2 Sat by Pulse Oximetry [ Assessment] 06/20/21 06/20/21 06/20/21 01:01 01:15 01:31 Temperature Pulse Rate 68 69 71 Pulse Rate [ From Monitor] Respiratory 20 19 19 Rate Blood Pressure 119/53 119/53 119/53 O2 Sat by Pulse 100 100 100 Oximetry O2 Sat by Pulse Oximetry [ Assessment] 06/20/21 06/20/21 06/20/21 01:34 01:35 01:45 Temperature 98.2 F 98.2 F Pulse Rate 75 Pulse Rate [ From Monitor] Respiratory 17 Rate Blood Pressure 119/53 O2 Sat by Pulse 100 Oximetry O2 Sat by Pulse Oximetry [ Assessment] 06/20/21 06/20/21 06/20/21 02:00 02:15 02:31 Temperature Pulse Rate 76 77 79 Pulse Rate [ From Monitor] Respiratory 28 H 22 19 Rate Blood Pressure 97/49 97/49 97/49 O2 Sat by Pulse 100 100 100 Oximetry O2 Sat by Pulse Oximetry [ Assessment] 06/20/21 06/20/21 06/20/21 02:45 03:01 03:09 Temperature 99.3 F Pulse Rate 79 78 Pulse Rate [ From Monitor] Respiratory 31 H 21 Rate Blood Pressure 97/49 97/49 O2 Sat by Pulse 100 100 Oximetry O2 Sat by Pulse Oximetry [ Assessment] 06/20/21 06/20/21 06/20/21 03:15 03:31 03:45 Temperature Pulse Rate 80 82 83 Pulse Rate [ From Monitor] Respiratory 18 13 18 Rate Blood Pressure 88/47 88/47 88/47 O2 Sat by Pulse 100 100 100 Oximetry O2 Sat by Pulse Oximetry [ Assessment] 06/20/21 06/20/21 06/20/21 03:56 04:00 04:15 Temperature 99.9 F H 99.7 F H Pulse Rate 99 H 89 Pulse Rate [ 50 L From Monitor] Respiratory 13 14 Rate Blood Pressure 98/58 98/58 O2 Sat by Pulse 100 100 Oximetry O2 Sat by Pulse Oximetry [ Assessment] 06/20/21 06/20/21 06/20/21 04:31 04:45 05:01 Temperature Pulse Rate 91 H 90 89 Pulse Rate [ From Monitor] Respiratory 18 15 16 Rate Blood Pressure 98/58 98/58 98/58 O2 Sat by Pulse 100 100 100 Oximetry O2 Sat by Pulse Oximetry [ Assessment] 06/20/21 06/20/21 06/20/21 05:06 05:10 05:15 Temperature Pulse Rate 85 84 Pulse Rate [ From Monitor] Respiratory 12 Rate Blood Pressure 80/46 98/58 O2 Sat by Pulse 100 100 Oximetry O2 Sat by Pulse 99 Oximetry [ Assessment] 06/20/21 06/20/21 06/20/21 05:31 05:45 06:01 Temperature Pulse Rate 81 85 89 Pulse Rate [ From Monitor] Respiratory 16 15 18 Rate Blood Pressure 98/58 75/41 126/71 O2 Sat by Pulse 100 100 100 Oximetry O2 Sat by Pulse Oximetry [ Assessment] 06/20/21 06/20/21 06/20/21 06:15 06:31 06:45 Temperature Pulse Rate 87 85 82 Pulse Rate [ From Monitor] Respiratory 18 17 18 Rate Blood Pressure 126/71 126/71 126/71 O2 Sat by Pulse 100 100 100 Oximetry O2 Sat by Pulse Oximetry [ Assessment] 0206/20/21 06/20/21 07:01 07:15 07:31 Temperature Pulse Rate 83 87 87 Pulse Rate [ From Monitor] Respiratory 18 18 20 Rate Blood Pressure 126/71 126/71 126/71 O2 Sat by Pulse 100 100 100 Oximetry O2 Sat by Pulse Oximetry [ Assessment] 06/20/21 06/20/21 06/20/21 07:34 07:45 07:48 Temperature 98.1 F Pulse Rate 83 87 Pulse Rate [ From Monitor] Respiratory 12 Rate Blood Pressure 126/71 126/71 O2 Sat by Pulse 100 100 Oximetry O2 Sat by Pulse Oximetry [ Assessment] 06/20/21 06/20/21 06/20/21 08:00 08:15 08:31 Temperature Pulse Rate 84 77 Pulse Rate [ 83 From Monitor] Respiratory 20 19 15 Rate Blood Pressure 134/63 134/63 134/63 O2 Sat by Pulse 100 100 100 Oximetry O2 Sat by Pulse Oximetry [ Assessment] 06/20/21 06/20/21 06/20/21 08:45 09:01 09:15 Temperature Pulse Rate 77 77 77 Pulse Rate [ From Monitor] Respiratory 18 12 19 Rate Blood Pressure 134/63 134/63 134/63 O2 Sat by Pulse 100 100 100 Oximetry O2 Sat by Pulse Oximetry [ Assessment] 06/20/21 06/20/21 06/20/21 09:31 09:45 10:00 Temperature Pulse Rate 95 H 82 83 Pulse Rate [ From Monitor] Respiratory 15 18 18 Rate Blood Pressure 134/63 134/63 101/48 O2 Sat by Pulse 100 100 100 Oximetry O2 Sat by Pulse Oximetry [ Assessment] 06/20/21 06/20/21 06/20/21 10:15 10:31 10:45 Temperature Pulse Rate 95 H 90 103 H Pulse Rate [ From Monitor] Respiratory 16 17 20 Rate Blood Pressure 101/48 101/48 101/48 O2 Sat by Pulse 100 95 88 Oximetry O2 Sat by Pulse Oximetry [ Assessment] 06/20/21 06/20/21 06/20/21 11:01 11:15 11:39 Temperature 98.9 F Pulse Rate 130 H 135 H Pulse Rate [ From Monitor] Respiratory 29 H 33 H Rate Blood Pressure 101/48 101/48 O2 Sat by Pulse 96 91 Oximetry O2 Sat by Pulse Oximetry [ Assessment] Constitutional: alert, appears uncomfortable Eyes: non-icteric ENT: other (patient with blood oozing from mouth but not able to open it voluntarily) Neck: other (covered in dressing, ET tube is anterior but I am not moving secondary to instability) Ascultation: Bilateral: clear Percussion: Bilateral: not dull Cardiovascular: regular rate and rhythm Gastrointestinal: normoactive bowel sounds, soft Extremities: no edema Neurologic: normal mental status CBC and BMP: 06/20/21 04:33 06/20/21 04:33 ABG, PT/INR, D-dimer: ABG ABG pH 7.401 pH Units (7.350-7.450) 06/19/21 04:50 POC ABG pCO2 25.6 mmHg (32.0-48.0) L 06/13/21 04:31 ABG pCO2 35.0 mm Hg 06/19/21 04:50 POC ABG pO2 138.8 mmHg (83-108) H 06/13/21 04:31 ABG pO2 78.9 mm Hg (80.0-90.0) L 06/19/21 04:50 POC ABG HCO3 21.4 06/13/21 04:31 ABG O2 Saturation 97.0 % (95.0-99.0) 06/19/21 04:50 PT/INR, D-dimer PT 18.3 Sec. (12.2-14.9) H 06/20/21 04:33 INR 1.37 (0.87-1.13) H 06/20/21 04:33 D-Dimer 1244.63 ng/mlDDU (0-234) H 06/13/21 Unknown Abnormal lab findings: Abnormal Labs 06/11/21 06/11/21 06/11/21 15:23 15:23 19:20 WBC 12.0 H RBC Hgb Hct MCV 72 L MCH 21 L RDW 17.5 H Plt Count Lymph % (Auto) 12.9 L [place] % (Auto) 8.6 H [place] # (Auto) 1.0 H Seg Neutrophils % 77.4 H Seg Neuts % (Manual) Lymphocytes % (Manual) Monocytes % (Manual) Seg Neutrophils # 9.3 H Seg Neutrophils # Man Lymphocytes # (Manual) Monocytes # (Manual) PT INR APTT Fibrinogen D-Dimer ABG pH POC ABG pCO2 POC ABG pO2 ABG pO2 ABG HCO3 ABG O2 Saturation ABG Base Excess ABG Hemoglobin ABG Oxyhemoglobin Oxyhemoglobin Sodium Potassium Chloride Carbon Dioxide BUN Creatinine Glucose 144 H POC Glucose Lactic Acid Calcium Phosphorus Magnesium AST ALT Alkaline Phosphatase C-Reactive Protein Total Protein Albumin Triglycerides Ur Specific Flom Urine Creatinine Crossmatch See Detail 06/11/21 06/11/21 06/11/21 19:29 19:29 23:21 WBC 15.8 H RBC Hgb 9.4 L Hct MCV 72 L MCH 22 L RDW 17.4 H Plt Count Lymph % (Auto) 9.2 L [place] % (Auto) [place] # (Auto) Seg Neutrophils % 89.0 H Seg Neuts % (Manual) Lymphocytes % (Manual) Monocytes % (Manual) Seg Neutrophils # 14.0 H Seg Neutrophils # Man Lymphocytes # (Manual) Monocytes # (Manual) PT 72.9 H INR 8.18 H* APTT 71.7 H* Fibrinogen D-Dimer ABG pH POC ABG pCO2 POC ABG pO2 ABG pO2 ABG HCO3 ABG O2 Saturation ABG Base Excess ABG Hemoglobin ABG Oxyhemoglobin Oxyhemoglobin Sodium 149 H D Potassium Chloride 124.3 H Carbon Dioxide 8 L* D BUN Creatinine 0.3 L Glucose 628 H* POC Glucose Lactic Acid Calcium 2.4 L* D Phosphorus Magnesium AST ALT < 5 L Alkaline Phosphatase 19 L C-Reactive Protein Total Protein 1.6 L D Albumin 0.8 L Triglycerides Ur Specific [place]om Urine Creatinine Crossmatch 06/11/21 06/11/21 06/11/21 23:21 23:22 23:42 WBC RBC Hgb Hct MCV MCH 27 L RDW 22.2 H Plt Count 131 L Lymph % (Auto) [place] % (Auto) [place] # (Auto) Seg Neutrophils % Seg Neuts % (Manual) Lymphocytes % (Manual) Monocytes % (Manual) Seg Neutrophils # Seg Neutrophils # Man Lymphocytes # (Manual) Monocytes # (Manual) PT 46.3 H INR 4.55 H APTT 54.8 H Fibrinogen D-Dimer ABG pH POC ABG pCO2 POC ABG pO2 325.9 H ABG pO2 ABG HCO3 ABG O2 Saturation ABG Base Excess ABG Hemoglobin 8.0 L ABG Oxyhemoglobin 99.0 H Oxyhemoglobin Sodium Potassium Chloride Carbon Dioxide BUN Creatinine Glucose POC Glucose Lactic Acid Calcium Phosphorus Magnesium AST ALT Alkaline Phosphatase C-Reactive Protein Total Protein Albumin Triglycerides Ur Specific [place]om Urine Creatinine Crossmatch 06/12/21 06/12/21 06/12/21 01:45 01:45 01:45 WBC 21.6 H RBC 3.04 L Hgb 6.7 L D Hct 22.4 L D MCV 74 L MCH 22 L RDW 18.9 H Plt Count Lymph % (Auto) [place] % (Auto) [place] # (Auto) Seg Neutrophils % Seg Neuts % (Manual) 76.0 H Lymphocytes % (Manual) 2.0 L Monocytes % (Manual) 8.0 H Seg Neutrophils # Seg Neutrophils # Man 16.4 H Lymphocytes # (Manual) 0.4 L Monocytes # (Manual) 1.7 H PT 25.4 H INR 2.10 H APTT Fibrinogen D-Dimer ABG pH POC ABG pCO2 POC ABG pO2 ABG pO2 ABG HCO3 ABG O2 Saturation ABG Base Excess ABG Hemoglobin ABG Oxyhemoglobin Oxyhemoglobin Sodium Potassium 5.6 H D Chloride Carbon Dioxide 20 L D BUN Creatinine Glucose 368 H POC Glucose Lactic Acid Calcium 7.1 L D Phosphorus Magnesium AST ALT Alkaline Phosphatase C-Reactive Protein Total Protein 5.3 L D Albumin 3.1 L Triglycerides Ur Specific [place]om Urine Creatinine Crossmatch 06/12/21 06/12/21 06/12/21 02:05 04:41 11:05 WBC 14.6 H RBC 3.52 L Hgb 8.5 L Hct 27.7 L MCV MCH 24 L RDW 20.9 H Plt Count Lymph % (Auto) [place] % (Auto) [place] # (Auto) Seg Neutrophils % Seg Neuts % (Manual) Lymphocytes % (Manual) Monocytes % (Manual) Seg Neutrophils # Seg Neutrophils # Man Lymphocytes # (Manual) Monocytes # (Manual) PT INR APTT Fibrinogen D-Dimer ABG pH POC ABG pCO2 POC ABG pO2 224.6 H ABG pO2 ABG HCO3 ABG O2 Saturation ABG Base Excess ABG Hemoglobin 7.3 L ABG Oxyhemoglobin 98.7 H Oxyhemoglobin Sodium Potassium Chloride Carbon Dioxide BUN Creatinine Glucose POC Glucose 308 H Lactic Acid Calcium Phosphorus Magnesium AST ALT Alkaline Phosphatase C-Reactive Protein Total Protein Albumin Triglycerides Ur Specific Flom Urine Creatinine Crossmatch 06/12/21 06/12/21 06/12/21 11:05 11:05 12:18 WBC RBC Hgb Hct MCV MCH RDW Plt Count Lymph % (Auto) [place] % (Auto) [place] # (Auto) Seg Neutrophils % Seg Neuts % (Manual) Lymphocytes % (Manual) Monocytes % (Manual) Seg Neutrophils # Seg Neutrophils # Man Lymphocytes # (Manual) Monocytes # (Manual) PT 16.8 H INR 1.23 H APTT Fibrinogen D-Dimer ABG pH POC ABG pCO2 POC ABG pO2 ABG pO2 ABG HCO3 ABG O2 Saturation ABG Base Excess ABG Hemoglobin ABG Oxyhemoglobin Oxyhemoglobin Sodium Potassium Chloride Carbon Dioxide BUN 24 H Creatinine Glucose 324 H POC Glucose 281 H Lactic Acid Calcium 7.5 L Phosphorus Magnesium AST 70 H ALT 57 H Alkaline Phosphatase C-Reactive Protein Total Protein 6.0 L Albumin 3.6 L Triglycerides Ur Specific [place]om Urine Creatinine Crossmatch 06/12/21 06/12/21 06/12/21 17:00 17:00 17:00 WBC RBC Hgb 7.5 L Hct 24.0 L MCV MCH RDW Plt Count Lymph % (Auto) [place] % (Auto) [place] # (Auto) Seg Neutrophils % Seg Neuts % (Manual) Lymphocytes % (Manual) Monocytes % (Manual) Seg Neutrophils # Seg Neutrophils # Man Lymphocytes # (Manual) Monocytes # (Manual) PT 16.0 H INR 1.16 H APTT Fibrinogen D-Dimer ABG pH POC ABG pCO2 POC ABG pO2 ABG pO2 ABG HCO3 ABG O2 Saturation ABG Base Excess ABG Hemoglobin ABG Oxyhemoglobin Oxyhemoglobin Sodium Potassium Chloride Carbon Dioxide BUN Creatinine Glucose POC Glucose Lactic Acid Calcium Phosphorus Magnesium AST ALT Alkaline Phosphatase C-Reactive Protein Total Protein Albumin Triglycerides Ur Specific [place]om 1.035 H Urine Creatinine Crossmatch 06/12/21 06/12/21 06/12/21 18:06 23:00 23:05 WBC RBC Hgb 7.6 L Hct 23.5 L MCV MCH RDW Plt Count Lymph % (Auto) [place] % (Auto) [place] # (Auto) Seg Neutrophils % Seg Neuts % (Manual) Lymphocytes % (Manual) Monocytes % (Manual) Seg Neutrophils # Seg Neutrophils # Man Lymphocytes # (Manual) Monocytes # (Manual) PT INR APTT Fibrinogen D-Dimer ABG pH POC ABG pCO2 POC ABG pO2 ABG pO2 ABG HCO3 ABG O2 Saturation ABG Base Excess ABG Hemoglobin ABG Oxyhemoglobin Oxyhemoglobin Sodium Potassium Chloride Carbon Dioxide BUN Creatinine Glucose POC Glucose 257 H 300 H Lactic Acid Calcium Phosphorus Magnesium AST ALT Alkaline Phosphatase C-Reactive Protein Total Protein Albumin Triglycerides Ur Specific Flom Urine Creatinine Crossmatch 06/13/21 06/13/21 06/13/21 04:31 05:19 07:30 WBC RBC Hgb 6.8 L Hct 21.7 L MCV MCH RDW Plt Count Lymph % (Auto) [place] % (Auto) [place] # (Auto) Seg Neutrophils % Seg Neuts % (Manual) Lymphocytes % (Manual) Monocytes % (Manual) Seg Neutrophils # Seg Neutrophils # Man Lymphocytes # (Manual) Monocytes # (Manual) PT INR APTT Fibrinogen D-Dimer ABG pH 7.541 H POC ABG pCO2 25.6 L POC ABG pO2 138.8 H ABG pO2 ABG HCO3 ABG O2 Saturation ABG Base Excess ABG Hemoglobin 7.3 L ABG Oxyhemoglobin 98.1 H Oxyhemoglobin Sodium Potassium Chloride Carbon Dioxide BUN Creatinine Glucose POC Glucose 286 H Lactic Acid Calcium Phosphorus Magnesium AST ALT Alkaline Phosphatase C-Reactive Protein Total Protein Albumin Triglycerides Ur Specific [place] Urine Creatinine Crossmatch 06/13/21 06/13/21 06/13/21 07:30 12:04 14:50 WBC RBC Hgb Hct MCV MCH RDW Plt Count Lymph % (Auto) [place] % (Auto) [place] # (Auto) Seg Neutrophils % Seg Neuts % (Manual) Lymphocytes % (Manual) Monocytes % (Manual) Seg Neutrophils # Seg Neutrophils # Man Lymphocytes # (Manual) Monocytes # (Manual) PT INR APTT Fibrinogen D-Dimer ABG pH 7.039 L* 7.182 L* POC ABG pCO2 POC ABG pO2 ABG pO2 63.1 L ABG HCO3 17.4 L ABG O2 Saturation 73.4 L ABG Base Excess -12.6 L -7.1 L ABG Hemoglobin 7.7 L 6.9 L ABG Oxyhemoglobin Oxyhemoglobin 71.8 L 93.5 L Sodium Potassium Chloride 108.9 H Carbon Dioxide BUN 28 H Creatinine Glucose 293 H POC Glucose Lactic Acid Calcium 7.2 L Phosphorus Magnesium AST 106 H ALT 92 H Alkaline Phosphatase C-Reactive Protein Total Protein 5.6 L Albumin 3.3 L Triglycerides Ur Specific [place] Urine Creatinine Crossmatch 06/13/21 06/13/21 06/13/21 14:54 15:45 17:34 WBC RBC Hgb Hct MCV MCH RDW Plt Count Lymph % (Auto) [place] % (Auto) [place] # (Auto) Seg Neutrophils % Seg Neuts % (Manual) Lymphocytes % (Manual) Monocytes % (Manual) Seg Neutrophils # Seg Neutrophils # Man Lymphocytes # (Manual) Monocytes # (Manual) PT INR APTT Fibrinogen D-Dimer ABG pH POC ABG pCO2 POC ABG pO2 ABG pO2 178.4 H ABG HCO3 ABG O2 Saturation 99.1 H ABG Base Excess ABG Hemoglobin 8.0 L ABG Oxyhemoglobin Oxyhemoglobin Sodium Potassium Chloride 107.3 H Carbon Dioxide 19 L BUN 33 H Creatinine 1.5 H Glucose 379 H POC Glucose Lactic Acid 5.30 H* Calcium 6.8 L Phosphorus Magnesium AST ALT Alkaline Phosphatase C-Reactive Protein Total Protein Albumin Triglycerides Ur Specific [place] Urine Creatinine Crossmatch 06/13/21 06/13/21 06/13/21 17:40 23:29 Unknown WBC 22.5 H RBC 3.16 L Hgb 8.0 L Hct 26.0 L MCV MCH 26 L RDW 21.4 H Plt Count Lymph % (Auto) [place] % (Auto) [place] # (Auto) Seg Neutrophils % Seg Neuts % (Manual) 88.0 H Lymphocytes % (Manual) 4.0 L Monocytes % (Manual) Seg Neutrophils # Seg Neutrophils # Man 19.8 H Lymphocytes # (Manual) 0.9 L Monocytes # (Manual) 1.4 H PT INR APTT Fibrinogen D-Dimer ABG pH POC ABG pCO2 POC ABG pO2 ABG pO2 ABG HCO3 ABG O2 Saturation ABG Base Excess ABG Hemoglobin ABG Oxyhemoglobin Oxyhemoglobin Sodium Potassium Chloride Carbon Dioxide BUN Creatinine Glucose POC Glucose 294 H 288 H Lactic Acid Calcium Phosphorus Magnesium AST ALT Alkaline Phosphatase C-Reactive Protein Total Protein Albumin Triglycerides Ur Specific [place] Urine Creatinine Crossmatch 06/13/21 06/14/21 06/14/21 Unknown 05:39 06:15 WBC RBC 2.93 L Hgb 7.2 L Hct 23.2 L MCV MCH 25 L RDW 21.2 H Plt Count Lymph % (Auto) [place] % (Auto) [place] # (Auto) Seg Neutrophils % Seg Neuts % (Manual) Lymphocytes % (Manual) Monocytes % (Manual) Seg Neutrophils # Seg Neutrophils # Man Lymphocytes # (Manual) Monocytes # (Manual) PT 17.6 H INR 1.31 H APTT Fibrinogen 546 H D-Dimer 1244.63 H ABG pH POC ABG pCO2 POC ABG pO2 ABG pO2 ABG HCO3 ABG O2 Saturation ABG Base Excess ABG Hemoglobin ABG Oxyhemoglobin Oxyhemoglobin Sodium Potassium Chloride Carbon Dioxide BUN Creatinine Glucose POC Glucose 246 H Lactic Acid Calcium Phosphorus Magnesium AST ALT Alkaline Phosphatase C-Reactive Protein Total Protein Albumin Triglycerides Ur Specific [place] Urine Creatinine Crossmatch 06/14/21 06/14/21 06/14/21 06:15 06:15 09:13 WBC RBC Hgb Hct MCV MCH RDW Plt Count Lymph % (Auto) [place] % (Auto) [place] # (Auto) Seg Neutrophils % Seg Neuts % (Manual) Lymphocytes % (Manual) Monocytes % (Manual) Seg Neutrophils # Seg Neutrophils # Man Lymphocytes # (Manual) Monocytes # (Manual) PT INR APTT Fibrinogen D-Dimer ABG pH POC ABG pCO2 POC ABG pO2 ABG pO2 183.0 H ABG HCO3 ABG O2 Saturation 99.2 H ABG Base Excess ABG Hemoglobin 6.6 L ABG Oxyhemoglobin Oxyhemoglobin Sodium 147 H Potassium Chloride 112.5 H Carbon Dioxide 21 L BUN 36 H Creatinine 1.4 H Glucose 281 H POC Glucose Lactic Acid Calcium 6.9 L Phosphorus Magnesium AST ALT Alkaline Phosphatase C-Reactive Protein Total Protein Albumin Triglycerides 189 H Ur Specific [place] Urine Creatinine Crossmatch 06/14/21 06/14/21 06/14/21 10:45 12:16 13:30 WBC RBC Hgb 7.1 L Hct 22.3 L MCV MCH RDW Plt Count Lymph % (Auto) [place] % (Auto) [place] # (Auto) Seg Neutrophils % Seg Neuts % (Manual) Lymphocytes % (Manual) Monocytes % (Manual) Seg Neutrophils # Seg Neutrophils # Man Lymphocytes # (Manual) Monocytes # (Manual) PT INR APTT Fibrinogen D-Dimer ABG pH 7.205 L POC ABG pCO2 POC ABG pO2 ABG pO2 261.3 H ABG HCO3 ABG O2 Saturation 99.4 H ABG Base Excess -7.2 L ABG Hemoglobin 7.6 L ABG Oxyhemoglobin Oxyhemoglobin Sodium Potassium Chloride Carbon Dioxide BUN Creatinine Glucose POC Glucose 174 H Lactic Acid Calcium Phosphorus Magnesium AST ALT Alkaline Phosphatase C-Reactive Protein Total Protein Albumin Triglycerides Ur Specific [place] Urine Creatinine Crossmatch 06/14/21 06/14/21 06/15/21 17:40 18:43 00:06 WBC RBC Hgb Hct MCV MCH RDW Plt Count Lymph % (Auto) [place] % (Auto) [place] # (Auto) Seg Neutrophils % Seg Neuts % (Manual) Lymphocytes % (Manual) Monocytes % (Manual) Seg Neutrophils # Seg Neutrophils # Man Lymphocytes # (Manual) Monocytes # (Manual) PT INR APTT Fibrinogen D-Dimer ABG pH 7.292 L POC ABG pCO2 POC ABG pO2 ABG pO2 78.8 L ABG HCO3 ABG O2 Saturation ABG Base Excess -5.0 L ABG Hemoglobin 9.1 L ABG Oxyhemoglobin Oxyhemoglobin 93.7 L Sodium Potassium Chloride Carbon Dioxide BUN Creatinine Glucose POC Glucose 182 H 144 H Lactic Acid Calcium Phosphorus Magnesium AST ALT Alkaline Phosphatase C-Reactive Protein Total Protein Albumin Triglycerides Ur Specific [place] Urine Creatinine Crossmatch 06/15/21 06/15/21 06/15/21 03:55 03:56 10:40 WBC RBC Hgb 8.4 L Hct 25.8 L MCV MCH RDW Plt Count Lymph % (Auto) [place] % (Auto) [place] # (Auto) Seg Neutrophils % Seg Neuts % (Manual) Lymphocytes % (Manual) Monocytes % (Manual) Seg Neutrophils # Seg Neutrophils # Man Lymphocytes # (Manual) Monocytes # (Manual) PT INR APTT Fibrinogen D-Dimer ABG pH POC ABG pCO2 POC ABG pO2 ABG pO2 ABG HCO3 ABG O2 Saturation ABG Base Excess ABG Hemoglobin ABG Oxyhemoglobin Oxyhemoglobin Sodium 147 H Potassium Chloride 112.2 H Carbon Dioxide 21 L BUN 47 H Creatinine 1.9 H Glucose 272 H POC Glucose Lactic Acid Calcium 7.3 L Phosphorus Magnesium AST 64 H ALT 106 H Alkaline Phosphatase C-Reactive Protein Total Protein 5.1 L Albumin 2.9 L Triglycerides Ur Specific [place] Urine Creatinine 81.1 H Crossmatch 06/15/21 06/15/21 06/15/21 11:46 17:16 23:17 WBC RBC Hgb Hct MCV MCH RDW Plt Count Lymph % (Auto) [place] % (Auto) [place] # (Auto) Seg Neutrophils % Seg Neuts % (Manual) Lymphocytes % (Manual) Monocytes % (Manual) Seg Neutrophils # Seg Neutrophils # Man Lymphocytes # (Manual) Monocytes # (Manual) PT INR APTT Fibrinogen D-Dimer ABG pH POC ABG pCO2 POC ABG pO2 ABG pO2 ABG HCO3 ABG O2 Saturation ABG Base Excess ABG Hemoglobin ABG Oxyhemoglobin Oxyhemoglobin Sodium Potassium Chloride Carbon Dioxide BUN Creatinine Glucose POC Glucose 271 H 268 H 264 H Lactic Acid Calcium Phosphorus Magnesium AST ALT Alkaline Phosphatase C-Reactive Protein Total Protein Albumin Triglycerides Ur Specific [place] Urine Creatinine Crossmatch 06/15/21 06/15/21 06/16/21 Unknown Unknown 04:32 WBC RBC 3.21 L 3.16 L Hgb 8.4 L 8.2 L Hct 26.1 L 25.4 L MCV MCH 26 L 26 L RDW 21.3 H 21.2 H Plt Count 105 L 118 L Lymph % (Auto) [place] % (Auto) [place] # (Auto) Seg Neutrophils % Seg Neuts % (Manual) Lymphocytes % (Manual) Monocytes % (Manual) Seg Neutrophils # Seg Neutrophils # Man Lymphocytes # (Manual) Monocytes # (Manual) PT INR APTT Fibrinogen D-Dimer ABG pH 7.465 H POC ABG pCO2 POC ABG pO2 ABG pO2 114.1 H ABG HCO3 ABG O2 Saturation ABG Base Excess ABG Hemoglobin 8.4 L ABG Oxyhemoglobin Oxyhemoglobin Sodium Potassium Chloride Carbon Dioxide BUN Creatinine Glucose POC Glucose Lactic Acid Calcium Phosphorus Magnesium AST ALT Alkaline Phosphatase C-Reactive Protein Total Protein Albumin Triglycerides Ur Specific [place] Urine Creatinine Crossmatch 06/16/21 06/16/21 06/16/21 04:32 04:32 05:08 WBC RBC Hgb Hct MCV MCH RDW Plt Count Lymph % (Auto) [place] % (Auto) [place] # (Auto) Seg Neutrophils % Seg Neuts % (Manual) Lymphocytes % (Manual) Monocytes % (Manual) Seg Neutrophils # Seg Neutrophils # Man Lymphocytes # (Manual) Monocytes # (Manual) PT INR APTT Fibrinogen D-Dimer ABG pH POC ABG pCO2 POC ABG pO2 ABG pO2 ABG HCO3 ABG O2 Saturation ABG Base Excess ABG Hemoglobin ABG Oxyhemoglobin Oxyhemoglobin Sodium 148 H Potassium 3.3 L Chloride 115.1 H Carbon Dioxide 21 L BUN 54 H Creatinine 1.6 H Glucose 367 H POC Glucose 356 H Lactic Acid Calcium 7.4 L Phosphorus Magnesium AST ALT Alkaline Phosphatase C-Reactive Protein 3.30 H Total Protein Albumin Triglycerides Ur Specific [place] Urine Creatinine Crossmatch 06/16/21 06/16/21 06/16/21 05:30 11:46 17:03 WBC RBC Hgb Hct MCV MCH RDW Plt Count Lymph % (Auto) [place] % (Auto) [place] # (Auto) Seg Neutrophils % Seg Neuts % (Manual) Lymphocytes % (Manual) Monocytes % (Manual) Seg Neutrophils # Seg Neutrophils # Man Lymphocytes # (Manual) Monocytes # (Manual) PT INR APTT Fibrinogen D-Dimer ABG pH 7.475 H POC ABG pCO2 POC ABG pO2 ABG pO2 171.8 H ABG HCO3 ABG O2 Saturation 99.1 H ABG Base Excess ABG Hemoglobin 11.7 L ABG Oxyhemoglobin Oxyhemoglobin Sodium Potassium Chloride Carbon Dioxide BUN Creatinine Glucose POC Glucose 309 H 345 H Lactic Acid Calcium Phosphorus Magnesium AST ALT Alkaline Phosphatase C-Reactive Protein Total Protein Albumin Triglycerides Ur Specific [place] Urine Creatinine Crossmatch 06/16/21 06/16/21 06/17/21 20:18 23:22 04:50 WBC RBC Hgb Hct MCV MCH RDW Plt Count Lymph % (Auto) [place] % (Auto) [place] # (Auto) Seg Neutrophils % Seg Neuts % (Manual) Lymphocytes % (Manual) Monocytes % (Manual) Seg Neutrophils # Seg Neutrophils # Man Lymphocytes # (Manual) Monocytes # (Manual) PT INR APTT Fibrinogen D-Dimer ABG pH 7.479 H POC ABG pCO2 POC ABG pO2 ABG pO2 143.1 H ABG HCO3 ABG O2 Saturation ABG Base Excess ABG Hemoglobin 10.0 L ABG Oxyhemoglobin Oxyhemoglobin Sodium Potassium Chloride Carbon Dioxide BUN Creatinine Glucose POC Glucose 325 H 315 H Lactic Acid Calcium Phosphorus Magnesium AST ALT Alkaline Phosphatase C-Reactive Protein Total Protein Albumin Triglycerides Ur Specific [place] Urine Creatinine Crossmatch 06/17/21 06/17/21 06/17/21 05:18 05:30 05:30 WBC RBC 3.17 L Hgb 8.2 L Hct 25.5 L MCV MCH 26 L RDW 21.2 H Plt Count 128 L Lymph % (Auto) [place] % (Auto) [place] # (Auto) Seg Neutrophils % Seg Neuts % (Manual) Lymphocytes % (Manual) Monocytes % (Manual) Seg Neutrophils # Seg Neutrophils # Man Lymphocytes # (Manual) Monocytes # (Manual) PT INR APTT Fibrinogen D-Dimer ABG pH POC ABG pCO2 POC ABG pO2 ABG pO2 ABG HCO3 ABG O2 Saturation ABG Base Excess ABG Hemoglobin ABG Oxyhemoglobin Oxyhemoglobin Sodium 148 H Potassium Chloride 113.7 H Carbon Dioxide 20 L BUN 57 H Creatinine 1.4 H Glucose 351 H POC Glucose 324 H Lactic Acid Calcium 8.0 L Phosphorus 2.30 L Magnesium AST ALT Alkaline Phosphatase C-Reactive Protein Total Protein Albumin Triglycerides Ur Specific [place] Urine Creatinine Crossmatch 06/17/21 06/17/21 06/17/21 11:49 17:43 21:42 WBC RBC Hgb Hct MCV MCH RDW Plt Count Lymph % (Auto) [place] % (Auto) [place] # (Auto) Seg Neutrophils % Seg Neuts % (Manual) Lymphocytes % (Manual) Monocytes % (Manual) Seg Neutrophils # Seg Neutrophils # Man Lymphocytes # (Manual) Monocytes # (Manual) PT INR APTT Fibrinogen D-Dimer ABG pH POC ABG pCO2 POC ABG pO2 ABG pO2 ABG HCO3 ABG O2 Saturation ABG Base Excess ABG Hemoglobin ABG Oxyhemoglobin Oxyhemoglobin Sodium Potassium Chloride Carbon Dioxide BUN Creatinine Glucose POC Glucose 305 H 307 H 286 H Lactic Acid Calcium Phosphorus Magnesium AST ALT Alkaline Phosphatase C-Reactive Protein Total Protein Albumin Triglycerides Ur Specific [place] Urine Creatinine Crossmatch 06/17/21 06/18/21 06/18/21 23:59 04:20 04:37 WBC RBC 3.53 L Hgb 9.1 L Hct 28.7 L MCV MCH 26 L RDW 21.3 H Plt Count Lymph % (Auto) [place] % (Auto) [place] # (Auto) Seg Neutrophils % Seg Neuts % (Manual) Lymphocytes % (Manual) Monocytes % (Manual) Seg Neutrophils # Seg Neutrophils # Man Lymphocytes # (Manual) Monocytes # (Manual) PT INR APTT Fibrinogen D-Dimer ABG pH 7.495 H POC ABG pCO2 POC ABG pO2 ABG pO2 108.3 H ABG HCO3 ABG O2 Saturation ABG Base Excess -2.1 L ABG Hemoglobin 10.0 L ABG Oxyhemoglobin Oxyhemoglobin Sodium Potassium Chloride Carbon Dioxide BUN Creatinine Glucose POC Glucose 264 H Lactic Acid Calcium Phosphorus Magnesium AST ALT Alkaline Phosphatase C-Reactive Protein Total Protein Albumin Triglycerides Ur Specific [place] Urine Creatinine Crossmatch 06/18/21 06/18/21 06/18/21 04:37 05:32 11:21 WBC RBC Hgb Hct MCV MCH RDW Plt Count Lymph % (Auto) [place] % (Auto) [place] # (Auto) Seg Neutrophils % Seg Neuts % (Manual) Lymphocytes % (Manual) Monocytes % (Manual) Seg Neutrophils # Seg Neutrophils # Man Lymphocytes # (Manual) Monocytes # (Manual) PT INR APTT Fibrinogen D-Dimer ABG pH POC ABG pCO2 POC ABG pO2 ABG pO2 ABG HCO3 ABG O2 Saturation ABG Base Excess ABG Hemoglobin ABG Oxyhemoglobin Oxyhemoglobin Sodium 148 H Potassium Chloride 114.7 H Carbon Dioxide BUN 59 H Creatinine 1.3 H Glucose 329 H POC Glucose 293 H 291 H Lactic Acid Calcium 8.1 L Phosphorus Magnesium AST ALT Alkaline Phosphatase C-Reactive Protein Total Protein Albumin Triglycerides Ur Specific [place] Urine Creatinine Crossmatch 06/18/21 06/18/21 06/19/21 18:21 21:46 00:15 WBC RBC Hgb Hct MCV MCH RDW Plt Count Lymph % (Auto) [place] % (Auto) [place] # (Auto) Seg Neutrophils % Seg Neuts % (Manual) Lymphocytes % (Manual) Monocytes % (Manual) Seg Neutrophils # Seg Neutrophils # Man Lymphocytes # (Manual) Monocytes # (Manual) PT INR APTT Fibrinogen D-Dimer ABG pH POC ABG pCO2 POC ABG pO2 ABG pO2 ABG HCO3 ABG O2 Saturation ABG Base Excess ABG Hemoglobin ABG Oxyhemoglobin Oxyhemoglobin Sodium Potassium Chloride Carbon Dioxide BUN Creatinine Glucose POC Glucose 239 H 259 H 310 H Lactic Acid Calcium Phosphorus Magnesium AST ALT Alkaline Phosphatase C-Reactive Protein Total Protein Albumin Triglycerides Ur Specific [place] Urine Creatinine Crossmatch 06/19/21 06/19/21 06/19/21 04:00 04:00 04:50 WBC RBC 3.64 L Hgb 9.1 L Hct 29.1 L MCV MCH 25 L RDW 21.5 H Plt Count Lymph % (Auto) [place] % (Auto) [place] # (Auto) Seg Neutrophils % Seg Neuts % (Manual) Lymphocytes % (Manual) Monocytes % (Manual) Seg Neutrophils # Seg Neutrophils # Man Lymphocytes # (Manual) Monocytes # (Manual) PT INR APTT Fibrinogen D-Dimer ABG pH POC ABG pCO2 POC ABG pO2 ABG pO2 78.9 L ABG HCO3 ABG O2 Saturation ABG Base Excess -3.2 L ABG Hemoglobin 7.6 L ABG Oxyhemoglobin Oxyhemoglobin Sodium 148 H Potassium Chloride 114.9 H Carbon Dioxide 19 L BUN 59 H Creatinine Glucose 345 H POC Glucose Lactic Acid Calcium 8.1 L Phosphorus 4.60 H D Magnesium 2.40 H AST ALT Alkaline Phosphatase C-Reactive Protein Total Protein Albumin Triglycerides Ur Specific [place] Urine Creatinine Crossmatch 06/19/21 06/19/21 06/19/21 06:28 11:11 17:20 WBC RBC Hgb Hct MCV MCH RDW Plt Count Lymph % (Auto) [place] % (Auto) [place] # (Auto) Seg Neutrophils % Seg Neuts % (Manual) Lymphocytes % (Manual) Monocytes % (Manual) Seg Neutrophils # Seg Neutrophils # Man Lymphocytes # (Manual) Monocytes # (Manual) PT 29.7 H INR 2.57 H APTT Fibrinogen D-Dimer ABG pH POC ABG pCO2 POC ABG pO2 ABG pO2 ABG HCO3 ABG O2 Saturation ABG Base Excess ABG Hemoglobin ABG Oxyhemoglobin Oxyhemoglobin Sodium Potassium Chloride Carbon Dioxide BUN Creatinine Glucose POC Glucose 279 H 275 H Lactic Acid Calcium Phosphorus Magnesium AST ALT Alkaline Phosphatase C-Reactive Protein Total Protein Albumin Triglycerides Ur Specific [place] Urine Creatinine Crossmatch 06/19/21 06/19/21 06/19/21 18:30 19:20 23:27 WBC RBC Hgb 8.0 L Hct 25.0 L MCV MCH RDW Plt Count Lymph % (Auto) [place] % (Auto) [place] # (Auto) Seg Neutrophils % Seg Neuts % (Manual) Lymphocytes % (Manual) Monocytes % (Manual) Seg Neutrophils # Seg Neutrophils # Man Lymphocytes # (Manual) Monocytes # (Manual) PT INR APTT Fibrinogen D-Dimer ABG pH POC ABG pCO2 POC ABG pO2 ABG pO2 ABG HCO3 ABG O2 Saturation ABG Base Excess ABG Hemoglobin ABG Oxyhemoglobin Oxyhemoglobin Sodium Potassium Chloride Carbon Dioxide BUN Creatinine Glucose POC Glucose 279 H 290 H Lactic Acid Calcium Phosphorus Magnesium AST ALT Alkaline Phosphatase C-Reactive Protein Total Protein Albumin Triglycerides Ur Specific [place] Urine Creatinine Crossmatch 06/20/21 06/20/21 06/20/21 00:00 04:33 04:33 WBC 22.3 H RBC 3.31 L Hgb 7.4 L 8.5 L Hct 22.5 L 26.5 L MCV MCH 26 L RDW 21.5 H Plt Count Lymph % (Auto) [place] % (Auto) [place] # (Auto) Seg Neutrophils % Seg Neuts % (Manual) Lymphocytes % (Manual) Monocytes % (Manual) Seg Neutrophils # Seg Neutrophils # Man Lymphocytes # (Manual) Monocytes # (Manual) PT INR APTT Fibrinogen D-Dimer ABG pH POC ABG pCO2 POC ABG pO2 ABG pO2 ABG HCO3 ABG O2 Saturation ABG Base Excess ABG Hemoglobin ABG Oxyhemoglobin Oxyhemoglobin Sodium 148 H Potassium Chloride 114.2 H Carbon Dioxide BUN 70 H Creatinine 1.4 H Glucose 313 H POC Glucose Lactic Acid Calcium 8.2 L Phosphorus Magnesium 2.50 H AST ALT Alkaline Phosphatase C-Reactive Protein Total Protein Albumin Triglycerides Ur Specific [place] Urine Creatinine Crossmatch 06/20/21 06/20/21 06/20/21 04:33 05:27 11:21 WBC RBC Hgb Hct MCV MCH RDW Plt Count Lymph % (Auto) [place] % (Auto) [place] # (Auto) Seg Neutrophils % Seg Neuts % (Manual) Lymphocytes % (Manual) Monocytes % (Manual) Seg Neutrophils # Seg Neutrophils # Man Lymphocytes # (Manual) Monocytes # (Manual) PT 18.3 H INR 1.37 H APTT Fibrinogen D-Dimer ABG pH POC ABG pCO2 POC ABG pO2 ABG pO2 ABG HCO3 ABG O2 Saturation ABG Base Excess ABG Hemoglobin ABG Oxyhemoglobin Oxyhemoglobin Sodium Potassium Chloride Carbon Dioxide BUN Creatinine Glucose POC Glucose 288 H 306 H Lactic Acid Calcium Phosphorus Magnesium AST ALT Alkaline Phosphatase C-Reactive Protein Total Protein Albumin Triglycerides Ur Specific [place]om Urine Creatinine Crossmatch
[2021-06-20 12:36] LABS: Hematocrit 25.9 % (30.3-42.9); Hemoglobin 8.2 gm/dl (10.1-14.3)
[2021-06-20] MEDS ORDERED: LIPASE 10,500/PROTEASE 25,000/AMYLASE 43,750 (UNITS) DR CAP FEEDTUBE PRN (12:40)
[2021-06-20] MEDS ORDERED: SIMPLE SYRUP 15 ML FEEDTUBE PRN ×2 (12:40)
[2021-06-20] MEDS ORDERED: SODIUM BICARBONATE 325 MG TAB FEEDTUBE PRN (12:40)
--- NOTE | 2021-06-20 13:27 | Electrocardiograph Report ---
[facility] Test Date: 2021-06-20 Test Time: 11:36:43 Pat Name: TRESSA RABAGO Department: Room: A260 1 Gender: F Manual Lathe Operator: ALIZA : 1945 Requested By: VIOLETTE DEMPSEY Order Number: [id number] Reading MD: Dawna Becker Measurements Intervals [place] Rate: 109 P: 85 OK: 111 QRS: -28 QRSD: 77 T: 104 QT: 307 QTc: 406 Interpretive Statements Multifocal atrial tachycardia Nonspecific repol abnormality, lateral leads No previous ECG available for comparison Electronically Signed On 06-20-2021 13:27:22 EST by Dawna Becker
--- NOTE | 2021-06-20 13:57 | Progress Note ---
Assessment and Plan Cultures: 06/12/2021 blood cultures: no growth A/P: 76-year-old female with diabetes, hypertension, gout was admitted to the hospital on 06/11/2021 with swelling of the submandibular region, tongue and difficulty breathing, labs also revealed severe coagulopathy due to Coumadin. 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 Shock resolved. s/p tracheostomy and PEG tube placement 06/19/2021. #Acute respiratory failure: on the vent #Right-sided pneumothorax: s/p chest tube. #Diabetes mellitus, uncontrolled #Coagulopathy: Secondary to Coumadin. #Acute blood loss anemia Recs: -Monitor leukocytosis, no change in antibiotics for now, continue Zosyn -Leukocytosis could be secondary to surgical procedures yesterday and ongoing steroid use -Now that patient has a PEG tube placed, consider weaning off TPN -Ordered CBC for a.m. -awaiting transfer to [place] for ENT maryellen Barros MD, FACP, [facility] ([facility] O: [phone] F: [phone] Subjective Date of service: 06/20/21 Interval history: No fever. Underwent tracheostomy and PEG tube placement yesterday. Remains on the vent. On low-dose pressors. Objective - Exam Narrative Exam: Physical Exam: Constitutional: sedated, on the vent Head, Ears, Nose: Normocephalic, atraumatic. External ears, nose normal Eyes: Conjunctivae/corneas clear. No icterus. No ptosis. Oral: trach Cardiovascular: S1, S2 + Respiratory: AE reduced, right-sided chest tube. GI: Soft, bowel sounds +, PEG + Musculoskeletal: No pedal edema, no cyanosis. Skin: No rash or abscess Hem/Lymphatic: No palpable cervical or supraclavicular nodes. No lymphangitis Psych: no agitation Neurological: sedated, on the vent, exam limited - Constitutional Vitals: Vital Signs Temp Pulse Resp BP Pulse Ox 98.9 F 95 H 14 118/75 97 06/20/21 11:39 06/20/21 13:31 06/20/21 13:31 06/20/21 13:31 06/20/21 13:31 Temperature -Last 24 Hours Temperature 98.9 F Temperature 98.1 F Temperature 99.7 F Temperature 99.9 F Temperature 99.3 F Temperature 99.3 F Temperature 98.2 F Temperature 98.2 F Temperature 97.4 F Temperature 96.5 F Temperature 96.5 F Temperature 94.5 F Temperature 97.6 F - Labs CBC & Chem 7: 06/20/21 12:23 06/20/21 04:33 Labs: Abnormal lab results 06/19/21 06/19/21 06/19/21 Range/Units 17:20 18:30 19:20 WBC (4.5-11.0) K/mm3 RBC (3.65-5.03) M/mm3 Hgb 8.0 L (10.1-14.3) gm/dl Hct 25.0 L (30.3-42.9) % MCH (28-32) pg RDW (13.2-15.2) % PT 29.7 H (12.2-14.9) Sec. INR 2.57 H (0.87-1.13) Sodium (137-145) mmol/L Chloride (98-107) mmol/L BUN (7-17) mg/dL Creatinine (0.6-1.2) mg/dL Glucose (65-100) mg/dL POC Glucose 279 H (70-105) mg/dL Calcium (8.4-10.2) mg/dL Magnesium (1.7-2.3) mg/dL 06/19/21 06/20/21 06/20/21 Range/Units 23:27 00:00 04:33 WBC 22.3 H (4.5-11.0) K/mm3 RBC 3.31 L (3.65-5.03) M/mm3 Hgb 7.4 L 8.5 L (10.1-14.3) gm/dl Hct 22.5 L 26.5 L (30.3-42.9) % MCH 26 L (28-32) pg RDW 21.5 H (13.2-15.2) % PT (12.2-14.9) Sec. INR (0.87-1.13) Sodium (137-145) mmol/L Chloride (98-107) mmol/L BUN (7-17) mg/dL Creatinine (0.6-1.2) mg/dL Glucose (65-100) mg/dL POC Glucose 290 H (70-105) mg/dL Calcium (8.4-10.2) mg/dL Magnesium (1.7-2.3) mg/dL 06/20/21 06/20/21 06/20/21 Range/Units 04:33 04:33 05:27 WBC (4.5-11.0) K/mm3 RBC (3.65-5.03) M/mm3 Hgb (10.1-14.3) gm/dl Hct (30.3-42.9) % MCH (28-32) pg RDW (13.2-15.2) % PT 18.3 H (12.2-14.9) Sec. INR 1.37 H (0.87-1.13) Sodium 148 H (137-145) mmol/L Chloride 114.2 H (98-107) mmol/L BUN 70 H (7-17) mg/dL Creatinine 1.4 H (0.6-1.2) mg/dL Glucose 313 H (65-100) mg/dL POC Glucose 288 H (70-105) mg/dL Calcium 8.2 L (8.4-10.2) mg/dL Magnesium 2.50 H (1.7-2.3) mg/dL 06/20/21 06/20/21 Range/Units 11:21 12:23 WBC (4.5-11.0) K/mm3 RBC (3.65-5.03) M/mm3 Hgb 8.2 L (10.1-14.3) gm/dl Hct 25.9 L (30.3-42.9) % MCH (28-32) pg RDW (13.2-15.2) % PT (12.2-14.9) Sec. INR (0.87-1.13) Sodium (137-145) mmol/L Chloride (98-107) mmol/L BUN (7-17) mg/dL Creatinine (0.6-1.2) mg/dL Glucose (65-100) mg/dL POC Glucose 306 H (70-105) mg/dL Calcium (8.4-10.2) mg/dL Magnesium (1.7-2.3) mg/dL
--- NOTE | 2021-06-20 18:15 | XRay Report ---
Chest single view INDICATION: Subcutaneous emphysema IMPRESSION: The previously demonstrated right-sided pneumothorax has mildly increased in size when co mpared to 06/19/2021 and now measures approximately 20-35%. Right-sided thoracostomy tube is in place, unchanged in position. Bilateral airspace disease persists. Tracheostomy tube unchanged in position. Severe and extensive subcutaneous emphysema throughout the right and left chest wall appears grossly unchanged from yesterday's exam. Signer Name: Jessee Damon MD Signed: 06/20/2021 6:10 PM Workstation Name: [id number]
[2021-06-20 19:09] LABS: Hematocrit 25.5 % (30.3-42.9); Hemoglobin 8.1 gm/dl (10.1-14.3)
[2021-06-21] MEDS: INSULIN LISPRO 100 UNIT/ML SUB-Q SCH ×4 (00:02→17:01)
[2021-06-21] MEDS: PIPERACIL/TAZOBACTA 4.5/NS 100 4.5 GM/100 ML VIAL IV SCH ×3 (00:02→11:52)
[2021-06-21] MEDS: fentaNYL DRIP Premix 2,000 MCG/100 ML BAG IV SCH ×5 (03:25→21:44)
[2021-06-21 04:34] LABS: ABG Base Excess -1.6 mmol/L (-2.0-3.0); ABG HCO3 22.6 mmol/L (20.0-26.0); ABG Methemoglobin 0.5 % (0.0-1.5); ABG Oxygen Saturation 97.7 % (95.0-99.0); ABG PCO2 35.1 mm Hg; ABG PH 7.426 pH Units (7.350-7.450); ABG PO2 98.5 mm Hg (80.0-90.0)
[2021-06-21 05:30] LABS: Basophils % (Auto) 0.1 % (0.0-1.8); Hematocrit 23.1 % (30.3-42.9); Hemoglobin 7.3 gm/dl (10.1-14.3); Lymphocytes # (Auto) 0.5 K/mm3 (1.2-5.4); Lymphocytes % (Auto) 3.5 % (13.4-35.0); Mean Corpuscular HGB Conc 32 % (30-34); Mean Corpuscular Volume 81 fl (79-97); Monocytes # (Auto) 1.8 K/mm3 (0.0-0.8); Monocytes % (Auto) 11.7 % (0.0-7.3); Platelet Count 231 K/mm3 (140-440); Red Blood Count 2.84 M/mm3 (3.65-5.03)
[2021-06-21] MEDS: FREE WATER PO SCH ×5 (05:43→21:17)
[2021-06-21] MEDS: methylPREDNISolone Sod Succinate 125 MG/2 ML INJ IV SCH ×3 (05:44→21:18)
[2021-06-21 05:45] LABS: Red Cell Distribution Width 21.5 % (13.2-15.2)
[2021-06-21 05:56] LABS: Calcium 7.9 mg/dL (8.4-10.2)
[2021-06-21] MEDS: SENNOSIDES ORAL LIQD 8.8 MG/5 ML ORAL LIQD PO SCH ×2 (09:12→21:17)
[2021-06-21] MEDS: DOCUSATE SODIUM 100 MG/10 ML ORAL LIQD PO SCH ×2 (09:12→21:17)
[2021-06-21] MEDS: INSULIN GLARGINE 100 UNITS/ML SUB-Q SCH ×2 (09:12→21:17)
[2021-06-21] MEDS: FAMOTIDINE 20 MG/2 ML INJ IV SCH ×2 (09:12→21:17)
--- NOTE | 2021-06-21 11:47 | Progress Note ---
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 06/21/21: Continue current level of sedation. Chest tube does not have air leak but there is clear evidence of a PTX on right. Stripped tube at bedside and will repeat CXR in the morning. Hold on weaning sedation for now and hold on PSV trials. May need second chest tube vs vats if PTX worsens or does not resolve. Patient still on list for [facility], hopeful they will have a bed soon. Drop steroids to 40q8 starting Thursday. Monitor renal function, likely will improve. Needs more free water. Prognosis still remains guarded. 06/20/21: Restart some sedation. At least pain and maybe diprovan. Would like to wake patient up at some point and attempt some PSV trials. Labs are off this am. Large bump in white count but no fever, also no diff drawn. Could be error vs steroid related but this is in just 24 hours. Will repeat tomorrow. If spikes a temp neves culture as well. Small bump in Cr but still in normal range. Will watch. Now that peg in place, tube feeds and free water flushes. Still on list for [facility]. Patient has been steroids greater than 7 days so will have to wean. Can drop to 60q8 starting tomorrow. Prognosis still remains guarded. 06/19/21: surgery to attempt trach and peg today. Still will ask to keep on transfer list for [facility] as her other issues still need to be addressed. If able to place peg, can stop clinimix, give free water and start tube feeds. Prognosis remains guarded. pH better with drop in tidal volume. 06/18/21: [facility] has agreed to accept but no ICU beds available at this time. Spoke with Dr. Vasquez yesterday and Dr. Patricia spoke with ENT there. Spoke with RT this am and patient did have a leak when cuff let down and her tidal volumes dropped to below 100. Patient remains on abx and steriods. Will consider lightening sedation tomorrow and seeing how patient does if cuff leak persists. Dropped tidal volumes to 450. Continue PPN for now. 06/17/21: spoke with surgery and they feel transfer is reasonable. I have reached out to [facility] and [facility] has spoken with someone from [facility]. Await to hear back from them. Continue supportive measures and adequate sedation for pain control. No PSV trials as of yet. Blood sugar control, increase lantus. Most likely secondary to steroids. Continue abx therapy. Guarded prognosis. 06/16/21: Renal function improved with fluids. IMS to give more fluids (LR) today which I agree with. FeNa is =0.7. Should be fluid responsive. Continue clinimix. Needs long acting insulin. Agree with lantus. Asked nursing to increase sedation now that we know that patient's mental status is stable. Picc today. Air leak test vs Neck CT on tomorrow. 06/15/21: Hopeful with worsening renal function ( likely from code on yesterday) that sedatives are just lingering from that. Still making good urine but output has fallen off. Will send urine sodium and urine cr to check Fena. Most likely this is prerenal. ordered renal ultrasound as well. Continue abx and steroids. Will start clinimix today. This should help with the free water piece. Will give another liter bolus of LR right now. Keep sedation off for now. Guarded prognosis. 06/14/21: Will discuss with surgery future plans. They have ordered steroids to help with inflammation and abx continue. All others appears stable and no acute evidence of bleeding at this time. Follow up surgery recs if any new ones. Guarded prognosis. 06/13/21: Patient to back to OR today. BLood transfusion. Will send DIC panel and may need to given cryo if over 6 units of PRBC's given. Patient will likely need trach and peg as we need to address nutrition. Chest tube placed, large bore now. Patient now with right sided effusion. Hemothorax???. Will continue to monitor output. Needs picc line as femoral should come out soon. Continue pressors. Continue sedation for pain control and comfort. Guarded prognosis. Surgery comfortable with neck and current situation so they have not request transfer. 1. Placed right femoral central line. pressors can run through this. 2. Repeat chemistry stat given bicarb of 8 and blood sugar of greater than 600. Ordering FSBS now. Earlier bicarb was 25. If accurate will need bicarb drip and vasopressin but not sure as pH on blood gas was normal done around the same time. 3. Coagulopathy is improving. INR down to 4.55 and PTT and pT improving. Will continue to give FFP. Ordered more vitamin K. H/H is stable but patient is oozing from neck and mouth. 4. Vasopressor for blood pressure. Need to keep map 65 and greater 5. Lujan is needed for accurate I/O 6. Surgery called by [facility] about current CT situation. They state they will reassess in the am. I have reviewed the images myself. If I can position the patient safely without compromising the airway after adequate sedation, may consider placing chest tube now as INR is better and FFP is hanging. Patient is morbidly obese so shits could move the ET tube so if not safe, will wait until surgery comes in the morning. 7. Would not attempt to pass OG or NG tube given current situation in neck 8. Will discuss with surgery tomorrow but I feel this patient should be transferred to a tertiary care facility with ENT as we do not have that service here. CCT 31 minutes. Subjective Date of service: 06/21/21 Interval history: Had some issues with trach on yesterday but handled. PTX appears to have returned but chest tube does not have air leak. Objective Vital Signs - 12hr 06/20/21 06/20/21 06/21/21 23:46 23:52 00:00 Temperature 98.1 F Pulse Rate 73 71 Pulse Rate [ 92 H From Monitor] Respiratory 18 16 Rate Blood Pressure 136/55 121/57 O2 Sat by Pulse 99 98 Oximetry O2 Sat by Pulse Oximetry [ Assessment] 06/21/21 06/21/21 06/21/21 00:16 00:30 00:46 Temperature Pulse Rate 78 82 76 Pulse Rate [ From Monitor] Respiratory 18 18 19 Rate Blood Pressure 121/57 121/57 121/57 O2 Sat by Pulse 98 98 98 Oximetry O2 Sat by Pulse Oximetry [ Assessment] 06/21/21 06/21/21 06/21/21 01:00 01:16 01:30 Temperature Pulse Rate 76 76 81 Pulse Rate [ From Monitor] Respiratory 18 18 18 Rate Blood Pressure 120/66 120/66 120/66 O2 Sat by Pulse 98 99 98 Oximetry O2 Sat by Pulse Oximetry [ Assessment] 06/21/21 06/21/21 06/21/21 01:46 02:00 02:16 Temperature Pulse Rate 75 82 95 H Pulse Rate [ From Monitor] Respiratory 18 18 18 Rate Blood Pressure 120/66 143/67 143/67 O2 Sat by Pulse 99 99 99 Oximetry O2 Sat by Pulse Oximetry [ Assessment] 06/21/21 06/21/21 06/21/21 02:30 02:46 03:00 Temperature Pulse Rate 98 H 112 H 90 Pulse Rate [ From Monitor] Respiratory 18 25 H 17 Rate Blood Pressure 143/67 143/67 142/76 O2 Sat by Pulse 99 99 98 Oximetry O2 Sat by Pulse Oximetry [ Assessment] 06/21/21 06/21/21 06/21/21 03:10 03:16 03:30 Temperature Pulse Rate 84 84 85 Pulse Rate [ From Monitor] Respiratory 0 L 18 18 Rate Blood Pressure 143/63 142/76 142/76 O2 Sat by Pulse 97 98 98 Oximetry O2 Sat by Pulse Oximetry [ Assessment] 06/21/21 06/21/21 06/21/21 03:33 03:46 04:00 Temperature 97.9 F Pulse Rate 81 79 Pulse Rate [ 92 H From Monitor] Respiratory 18 19 Rate Blood Pressure 142/76 126/64 O2 Sat by Pulse 98 98 Oximetry O2 Sat by Pulse Oximetry [ Assessment] 06/21/21 06/21/21 06/21/21 04:16 04:30 04:46 Temperature Pulse Rate 78 76 77 Pulse Rate [ From Monitor] Respiratory 18 18 18 Rate Blood Pressure 126/64 126/64 126/64 O2 Sat by Pulse 99 98 98 Oximetry O2 Sat by Pulse Oximetry [ Assessment] 06/21/21 06/21/21 06/21/21 05:00 05:16 05:30 Temperature Pulse Rate 75 85 81 Pulse Rate [ From Monitor] Respiratory 18 18 18 Rate Blood Pressure 133/67 133/67 133/67 O2 Sat by Pulse 99 99 98 Oximetry O2 Sat by Pulse Oximetry [ Assessment] 06/21/21 06/21/21 06/21/21 05:46 06:00 06:16 Temperature Pulse Rate 75 75 74 Pulse Rate [ From Monitor] Respiratory 17 14 17 Rate Blood Pressure 133/67 145/71 145/71 O2 Sat by Pulse 100 99 99 Oximetry O2 Sat by Pulse Oximetry [ Assessment] 06/21/21 06/21/21 06/21/21 06:30 06:46 07:00 Temperature Pulse Rate 79 75 75 Pulse Rate [ From Monitor] Respiratory 18 18 19 Rate Blood Pressure 145/71 145/71 151/74 O2 Sat by Pulse 99 99 99 Oximetry O2 Sat by Pulse Oximetry [ Assessment] 06/21/21 06/21/21 06/21/21 07:16 07:30 07:35 Temperature 98.1 F Pulse Rate 69 78 Pulse Rate [ From Monitor] Respiratory 18 18 Rate Blood Pressure 151/74 151/74 O2 Sat by Pulse 98 99 Oximetry O2 Sat by Pulse Oximetry [ Assessment] 06/21/21 06/21/21 06/21/21 07:46 08:00 08:16 Temperature Pulse Rate 78 82 82 Pulse Rate [ 85 From Monitor] Respiratory 18 19 16 Rate Blood Pressure 151/74 155/73 155/73 O2 Sat by Pulse 99 99 100 Oximetry O2 Sat by Pulse Oximetry [ Assessment] 06/21/21 06/21/21 06/21/21 08:28 08:30 08:46 Temperature Pulse Rate 81 78 79 Pulse Rate [ From Monitor] Respiratory 18 16 Rate Blood Pressure 155/73 155/73 155/73 O2 Sat by Pulse 99 99 98 Oximetry O2 Sat by Pulse 99 Oximetry [ Assessment] 06/21/21 06/21/21 06/21/21 09:00 09:16 09:30 Temperature Pulse Rate 78 82 81 Pulse Rate [ From Monitor] Respiratory 17 19 19 Rate Blood Pressure 154/79 154/79 154/79 O2 Sat by Pulse 98 99 100 Oximetry O2 Sat by Pulse Oximetry [ Assessment] 06/21/21 06/21/21 06/21/21 09:46 10:00 10:16 Temperature Pulse Rate 79 75 80 Pulse Rate [ From Monitor] Respiratory 19 18 17 Rate Blood Pressure 154/79 137/89 137/89 O2 Sat by Pulse 100 99 99 Oximetry O2 Sat by Pulse Oximetry [ Assessment] 06/21/21 06/21/21 06/21/21 10:30 10:46 11:00 Temperature Pulse Rate 82 79 80 Pulse Rate [ From Monitor] Respiratory 21 18 24 Rate Blood Pressure 137/89 137/89 137/89 O2 Sat by Pulse 98 99 99 Oximetry O2 Sat by Pulse Oximetry [ Assessment] 06/21/21 06/21/21 11:16 11:29 Temperature 98.5 F Pulse Rate 83 Pulse Rate [ From Monitor] Respiratory 24 Rate Blood Pressure 129/81 O2 Sat by Pulse 99 Oximetry O2 Sat by Pulse Oximetry [ Assessment] Constitutional: alert, appears uncomfortable Eyes: non-icteric ENT: other (patient with blood oozing from mouth but not able to open it voluntarily) Neck: other (covered in dressing, ET tube is anterior but I am not moving secondary to instability) Ascultation: Bilateral: clear Percussion: Bilateral: not dull Cardiovascular: regular rate and rhythm Gastrointestinal: normoactive bowel sounds, soft Extremities: no edema Neurologic: normal mental status CBC and BMP: 06/21/21 04:42 06/21/21 04:42 ABG, PT/INR, D-dimer: ABG ABG pH 7.426 pH Units (7.350-7.450) 06/21/21 04:20 POC ABG pCO2 25.6 mmHg (32.0-48.0) L 06/13/21 04:31 ABG pCO2 35.1 mm Hg 06/21/21 04:20 POC ABG pO2 138.8 mmHg (83-108) H 06/13/21 04:31 ABG pO2 98.5 mm Hg (80.0-90.0) H 06/21/21 04:20 POC ABG HCO3 21.4 06/13/21 04:31 ABG O2 Saturation 97.7 % (95.0-99.0) 06/21/21 04:20 PT/INR, D-dimer PT 18.3 Sec. (12.2-14.9) H 06/20/21 04:33 INR 1.37 (0.87-1.13) H 06/20/21 04:33 D-Dimer 1244.63 ng/mlDDU (0-234) H 06/13/21 Unknown Abnormal lab findings: Abnormal Labs 06/11/21 06/11/21 06/11/21 15:23 15:23 19:20 WBC 12.0 H RBC Hgb Hct MCV 72 L MCH 21 L RDW 17.5 H Plt Count Lymph % (Auto) 12.9 L [place] % (Auto) 8.6 H Lymph # (Auto) [place] # (Auto) 1.0 H Seg Neutrophils % 77.4 H Seg Neuts % (Manual) Lymphocytes % (Manual) Monocytes % (Manual) Seg Neutrophils # 9.3 H Seg Neutrophils # Man Lymphocytes # (Manual) Monocytes # (Manual) PT INR APTT Fibrinogen D-Dimer ABG pH POC ABG pCO2 POC ABG pO2 ABG pO2 ABG HCO3 ABG O2 Saturation ABG Base Excess ABG Hemoglobin ABG Oxyhemoglobin Oxyhemoglobin Sodium Potassium Chloride Carbon Dioxide BUN Creatinine Glucose 144 H POC Glucose Lactic Acid Calcium Phosphorus Magnesium AST ALT Alkaline Phosphatase C-Reactive Protein Total Protein Albumin Triglycerides Ur Specific [place] Urine Creatinine Crossmatch See Detail 06/11/21 06/11/21 06/11/21 19:29 19:29 23:21 WBC 15.8 H RBC Hgb 9.4 L Hct MCV 72 L MCH 22 L RDW 17.4 H Plt Count Lymph % (Auto) 9.2 L [place] % (Auto) Lymph # (Auto) [place] # (Auto) Seg Neutrophils % 89.0 H Seg Neuts % (Manual) Lymphocytes % (Manual) Monocytes % (Manual) Seg Neutrophils # 14.0 H Seg Neutrophils # Man Lymphocytes # (Manual) Monocytes # (Manual) PT 72.9 H INR 8.18 H* APTT 71.7 H* Fibrinogen D-Dimer ABG pH POC ABG pCO2 POC ABG pO2 ABG pO2 ABG HCO3 ABG O2 Saturation ABG Base Excess ABG Hemoglobin ABG Oxyhemoglobin Oxyhemoglobin Sodium 149 H D Potassium Chloride 124.3 H Carbon Dioxide 8 L* D BUN Creatinine 0.3 L Glucose 628 H* POC Glucose Lactic Acid Calcium 2.4 L* D Phosphorus Magnesium AST ALT < 5 L Alkaline Phosphatase 19 L C-Reactive Protein Total Protein 1.6 L D Albumin 0.8 L Triglycerides Ur Specific [place] Urine Creatinine Crossmatch 06/11/21 06/11/21 06/11/21 23:21 23:22 23:42 WBC RBC Hgb Hct MCV MCH 27 L RDW 22.2 H Plt Count 131 L Lymph % (Auto) [place] % (Auto) Lymph # (Auto) [place] # (Auto) Seg Neutrophils % Seg Neuts % (Manual) Lymphocytes % (Manual) Monocytes % (Manual) Seg Neutrophils # Seg Neutrophils # Man Lymphocytes # (Manual) Monocytes # (Manual) PT 46.3 H INR 4.55 H APTT 54.8 H Fibrinogen D-Dimer ABG pH POC ABG pCO2 POC ABG pO2 325.9 H ABG pO2 ABG HCO3 ABG O2 Saturation ABG Base Excess ABG Hemoglobin 8.0 L ABG Oxyhemoglobin 99.0 H Oxyhemoglobin Sodium Potassium Chloride Carbon Dioxide BUN Creatinine Glucose POC Glucose Lactic Acid Calcium Phosphorus Magnesium AST ALT Alkaline Phosphatase C-Reactive Protein Total Protein Albumin Triglycerides Ur Specific [place] Urine Creatinine Crossmatch 06/12/21 06/12/21 06/12/21 01:45 01:45 01:45 WBC 21.6 H RBC 3.04 L Hgb 6.7 L D Hct 22.4 L D MCV 74 L MCH 22 L RDW 18.9 H Plt Count Lymph % (Auto) [place] % (Auto) Lymph # (Auto) [place] # (Auto) Seg Neutrophils % Seg Neuts % (Manual) 76.0 H Lymphocytes % (Manual) 2.0 L Monocytes % (Manual) 8.0 H Seg Neutrophils # Seg Neutrophils # Man 16.4 H Lymphocytes # (Manual) 0.4 L Monocytes # (Manual) 1.7 H PT 25.4 H INR 2.10 H APTT Fibrinogen D-Dimer ABG pH POC ABG pCO2 POC ABG pO2 ABG pO2 ABG HCO3 ABG O2 Saturation ABG Base Excess ABG Hemoglobin ABG Oxyhemoglobin Oxyhemoglobin Sodium Potassium 5.6 H D Chloride Carbon Dioxide 20 L D BUN Creatinine Glucose 368 H POC Glucose Lactic Acid Calcium 7.1 L D Phosphorus Magnesium AST ALT Alkaline Phosphatase C-Reactive Protein Total Protein 5.3 L D Albumin 3.1 L Triglycerides Ur Specific [place] Urine Creatinine Crossmatch 06/12/21 06/12/21 06/12/21 02:05 04:41 11:05 WBC 14.6 H RBC 3.52 L Hgb 8.5 L Hct 27.7 L MCV MCH 24 L RDW 20.9 H Plt Count Lymph % (Auto) [place] % (Auto) Lymph # (Auto) [place] # (Auto) Seg Neutrophils % Seg Neuts % (Manual) Lymphocytes % (Manual) Monocytes % (Manual) Seg Neutrophils # Seg Neutrophils # Man Lymphocytes # (Manual) Monocytes # (Manual) PT INR APTT Fibrinogen D-Dimer ABG pH POC ABG pCO2 POC ABG pO2 224.6 H ABG pO2 ABG HCO3 ABG O2 Saturation ABG Base Excess ABG Hemoglobin 7.3 L ABG Oxyhemoglobin 98.7 H Oxyhemoglobin Sodium Potassium Chloride Carbon Dioxide BUN Creatinine Glucose POC Glucose 308 H Lactic Acid Calcium Phosphorus Magnesium AST ALT Alkaline Phosphatase C-Reactive Protein Total Protein Albumin Triglycerides Ur Specific [place] Urine Creatinine Crossmatch 06/12/21 06/12/21 06/12/21 11:05 11:05 12:18 WBC RBC Hgb Hct MCV MCH RDW Plt Count Lymph % (Auto) [place] % (Auto) Lymph # (Auto) [place] # (Auto) Seg Neutrophils % Seg Neuts % (Manual) Lymphocytes % (Manual) Monocytes % (Manual) Seg Neutrophils # Seg Neutrophils # Man Lymphocytes # (Manual) Monocytes # (Manual) PT 16.8 H INR 1.23 H APTT Fibrinogen D-Dimer ABG pH POC ABG pCO2 POC ABG pO2 ABG pO2 ABG HCO3 ABG O2 Saturation ABG Base Excess ABG Hemoglobin ABG Oxyhemoglobin Oxyhemoglobin Sodium Potassium Chloride Carbon Dioxide BUN 24 H Creatinine Glucose 324 H POC Glucose 281 H Lactic Acid Calcium 7.5 L Phosphorus Magnesium AST 70 H ALT 57 H Alkaline Phosphatase C-Reactive Protein Total Protein 6.0 L Albumin 3.6 L Triglycerides Ur Specific [place] Urine Creatinine Crossmatch 06/12/21 06/12/21 06/12/21 17:00 17:00 17:00 WBC RBC Hgb 7.5 L Hct 24.0 L MCV MCH RDW Plt Count Lymph % (Auto) [place] % (Auto) Lymph # (Auto) [place] # (Auto) Seg Neutrophils % Seg Neuts % (Manual) Lymphocytes % (Manual) Monocytes % (Manual) Seg Neutrophils # Seg Neutrophils # Man Lymphocytes # (Manual) Monocytes # (Manual) PT 16.0 H INR 1.16 H APTT Fibrinogen D-Dimer ABG pH POC ABG pCO2 POC ABG pO2 ABG pO2 ABG HCO3 ABG O2 Saturation ABG Base Excess ABG Hemoglobin ABG Oxyhemoglobin Oxyhemoglobin Sodium Potassium Chloride Carbon Dioxide BUN Creatinine Glucose POC Glucose Lactic Acid Calcium Phosphorus Magnesium AST ALT Alkaline Phosphatase C-Reactive Protein Total Protein Albumin Triglycerides Ur Specific [place] 1.035 H Urine Creatinine Crossmatch 06/12/21 06/12/21 06/12/21 18:06 23:00 23:05 WBC RBC Hgb 7.6 L Hct 23.5 L MCV MCH RDW Plt Count Lymph % (Auto) [place] % (Auto) Lymph # (Auto) [place] # (Auto) Seg Neutrophils % Seg Neuts % (Manual) Lymphocytes % (Manual) Monocytes % (Manual) Seg Neutrophils # Seg Neutrophils # Man Lymphocytes # (Manual) Monocytes # (Manual) PT INR APTT Fibrinogen D-Dimer ABG pH POC ABG pCO2 POC ABG pO2 ABG pO2 ABG HCO3 ABG O2 Saturation ABG Base Excess ABG Hemoglobin ABG Oxyhemoglobin Oxyhemoglobin Sodium Potassium Chloride Carbon Dioxide BUN Creatinine Glucose POC Glucose 257 H 300 H Lactic Acid Calcium Phosphorus Magnesium AST ALT Alkaline Phosphatase C-Reactive Protein Total Protein Albumin Triglycerides Ur Specific [place] Urine Creatinine Crossmatch 06/13/21 06/13/21 06/13/21 04:31 05:19 07:30 WBC RBC Hgb 6.8 L Hct 21.7 L MCV MCH RDW Plt Count Lymph % (Auto) [place] % (Auto) Lymph # (Auto) [place] # (Auto) Seg Neutrophils % Seg Neuts % (Manual) Lymphocytes % (Manual) Monocytes % (Manual) Seg Neutrophils # Seg Neutrophils # Man Lymphocytes # (Manual) Monocytes # (Manual) PT INR APTT Fibrinogen D-Dimer ABG pH 7.541 H POC ABG pCO2 25.6 L POC ABG pO2 138.8 H ABG pO2 ABG HCO3 ABG O2 Saturation ABG Base Excess ABG Hemoglobin 7.3 L ABG Oxyhemoglobin 98.1 H Oxyhemoglobin Sodium Potassium Chloride Carbon Dioxide BUN Creatinine Glucose POC Glucose 286 H Lactic Acid Calcium Phosphorus Magnesium AST ALT Alkaline Phosphatase C-Reactive Protein Total Protein Albumin Triglycerides Ur Specific [place] Urine Creatinine Crossmatch 06/13/21 06/13/21 06/13/21 07:30 12:04 14:50 WBC RBC Hgb Hct MCV MCH RDW Plt Count Lymph % (Auto) [place] % (Auto) Lymph # (Auto) [place] # (Auto) Seg Neutrophils % Seg Neuts % (Manual) Lymphocytes % (Manual) Monocytes % (Manual) Seg Neutrophils # Seg Neutrophils # Man Lymphocytes # (Manual) Monocytes # (Manual) PT INR APTT Fibrinogen D-Dimer ABG pH 7.039 L* 7.182 L* POC ABG pCO2 POC ABG pO2 ABG pO2 63.1 L ABG HCO3 17.4 L ABG O2 Saturation 73.4 L ABG Base Excess -12.6 L -7.1 L ABG Hemoglobin 7.7 L 6.9 L ABG Oxyhemoglobin Oxyhemoglobin 71.8 L 93.5 L Sodium Potassium Chloride 108.9 H Carbon Dioxide BUN 28 H Creatinine Glucose 293 H POC Glucose Lactic Acid Calcium 7.2 L Phosphorus Magnesium AST 106 H ALT 92 H Alkaline Phosphatase C-Reactive Protein Total Protein 5.6 L Albumin 3.3 L Triglycerides Ur Specific [place] Urine Creatinine Crossmatch 06/13/21 06/13/21 06/13/21 14:54 15:45 17:34 WBC RBC Hgb Hct MCV MCH RDW Plt Count Lymph % (Auto) [place] % (Auto) Lymph # (Auto) [place] # (Auto) Seg Neutrophils % Seg Neuts % (Manual) Lymphocytes % (Manual) Monocytes % (Manual) Seg Neutrophils # Seg Neutrophils # Man Lymphocytes # (Manual) Monocytes # (Manual) PT INR APTT Fibrinogen D-Dimer ABG pH POC ABG pCO2 POC ABG pO2 ABG pO2 178.4 H ABG HCO3 ABG O2 Saturation 99.1 H ABG Base Excess ABG Hemoglobin 8.0 L ABG Oxyhemoglobin Oxyhemoglobin Sodium Potassium Chloride 107.3 H Carbon Dioxide 19 L BUN 33 H Creatinine 1.5 H Glucose 379 H POC Glucose Lactic Acid 5.30 H* Calcium 6.8 L Phosphorus Magnesium AST ALT Alkaline Phosphatase C-Reactive Protein Total Protein Albumin Triglycerides Ur Specific [place] Urine Creatinine Crossmatch 06/13/21 06/13/21 06/13/21 17:40 23:29 Unknown WBC 22.5 H RBC 3.16 L Hgb 8.0 L Hct 26.0 L MCV MCH 26 L RDW 21.4 H Plt Count Lymph % (Auto) [place] % (Auto) Lymph # (Auto) [place] # (Auto) Seg Neutrophils % Seg Neuts % (Manual) 88.0 H Lymphocytes % (Manual) 4.0 L Monocytes % (Manual) Seg Neutrophils # Seg Neutrophils # Man 19.8 H Lymphocytes # (Manual) 0.9 L Monocytes # (Manual) 1.4 H PT INR APTT Fibrinogen D-Dimer ABG pH POC ABG pCO2 POC ABG pO2 ABG pO2 ABG HCO3 ABG O2 Saturation ABG Base Excess ABG Hemoglobin ABG Oxyhemoglobin Oxyhemoglobin Sodium Potassium Chloride Carbon Dioxide BUN Creatinine Glucose POC Glucose 294 H 288 H Lactic Acid Calcium Phosphorus Magnesium AST ALT Alkaline Phosphatase C-Reactive Protein Total Protein Albumin Triglycerides Ur Specific [place] Urine Creatinine Crossmatch 06/13/21 06/14/21 06/14/21 Unknown 05:39 06:15 WBC RBC 2.93 L Hgb 7.2 L Hct 23.2 L MCV MCH 25 L RDW 21.2 H Plt Count Lymph % (Auto) [place] % (Auto) Lymph # (Auto) [place] # (Auto) Seg Neutrophils % Seg Neuts % (Manual) Lymphocytes % (Manual) Monocytes % (Manual) Seg Neutrophils # Seg Neutrophils # Man Lymphocytes # (Manual) Monocytes # (Manual) PT 17.6 H INR 1.31 H APTT Fibrinogen 546 H D-Dimer 1244.63 H ABG pH POC ABG pCO2 POC ABG pO2 ABG pO2 ABG HCO3 ABG O2 Saturation ABG Base Excess ABG Hemoglobin ABG Oxyhemoglobin Oxyhemoglobin Sodium Potassium Chloride Carbon Dioxide BUN Creatinine Glucose POC Glucose 246 H Lactic Acid Calcium Phosphorus Magnesium AST ALT Alkaline Phosphatase C-Reactive Protein Total Protein Albumin Triglycerides Ur Specific [place] Urine Creatinine Crossmatch 06/14/21 06/14/21 06/14/21 06:15 06:15 09:13 WBC RBC Hgb Hct MCV MCH RDW Plt Count Lymph % (Auto) [place] % (Auto) Lymph # (Auto) [place] # (Auto) Seg Neutrophils % Seg Neuts % (Manual) Lymphocytes % (Manual) Monocytes % (Manual) Seg Neutrophils # Seg Neutrophils # Man Lymphocytes # (Manual) Monocytes # (Manual) PT INR APTT Fibrinogen D-Dimer ABG pH POC ABG pCO2 POC ABG pO2 ABG pO2 183.0 H ABG HCO3 ABG O2 Saturation 99.2 H ABG Base Excess ABG Hemoglobin 6.6 L ABG Oxyhemoglobin Oxyhemoglobin Sodium 147 H Potassium Chloride 112.5 H Carbon Dioxide 21 L BUN 36 H Creatinine 1.4 H Glucose 281 H POC Glucose Lactic Acid Calcium 6.9 L Phosphorus Magnesium AST ALT Alkaline Phosphatase C-Reactive Protein Total Protein Albumin Triglycerides 189 H Ur Specific [place] Urine Creatinine Crossmatch 06/14/21 06/14/21 06/14/21 10:45 12:16 13:30 WBC RBC Hgb 7.1 L Hct 22.3 L MCV MCH RDW Plt Count Lymph % (Auto) [place] % (Auto) Lymph # (Auto) [place] # (Auto) Seg Neutrophils % Seg Neuts % (Manual) Lymphocytes % (Manual) Monocytes % (Manual) Seg Neutrophils # Seg Neutrophils # Man Lymphocytes # (Manual) Monocytes # (Manual) PT INR APTT Fibrinogen D-Dimer ABG pH 7.205 L POC ABG pCO2 POC ABG pO2 ABG pO2 261.3 H ABG HCO3 ABG O2 Saturation 99.4 H ABG Base Excess -7.2 L ABG Hemoglobin 7.6 L ABG Oxyhemoglobin Oxyhemoglobin Sodium Potassium Chloride Carbon Dioxide BUN Creatinine Glucose POC Glucose 174 H Lactic Acid Calcium Phosphorus Magnesium AST ALT Alkaline Phosphatase C-Reactive Protein Total Protein Albumin Triglycerides Ur Specific [place] Urine Creatinine Crossmatch 06/14/21 06/14/21 06/15/21 17:40 18:43 00:06 WBC RBC Hgb Hct MCV MCH RDW Plt Count Lymph % (Auto) [place] % (Auto) Lymph # (Auto) [place] # (Auto) Seg Neutrophils % Seg Neuts % (Manual) Lymphocytes % (Manual) Monocytes % (Manual) Seg Neutrophils # Seg Neutrophils # Man Lymphocytes # (Manual) Monocytes # (Manual) PT INR APTT Fibrinogen D-Dimer ABG pH 7.292 L POC ABG pCO2 POC ABG pO2 ABG pO2 78.8 L ABG HCO3 ABG O2 Saturation ABG Base Excess -5.0 L ABG Hemoglobin 9.1 L ABG Oxyhemoglobin Oxyhemoglobin 93.7 L Sodium Potassium Chloride Carbon Dioxide BUN Creatinine Glucose POC Glucose 182 H 144 H Lactic Acid Calcium Phosphorus Magnesium AST ALT Alkaline Phosphatase C-Reactive Protein Total Protein Albumin Triglycerides Ur Specific [place] Urine Creatinine Crossmatch 06/15/21 06/15/21 06/15/21 03:55 03:56 10:40 WBC RBC Hgb 8.4 L Hct 25.8 L MCV MCH RDW Plt Count Lymph % (Auto) [place] % (Auto) Lymph # (Auto) [place] # (Auto) Seg Neutrophils % Seg Neuts % (Manual) Lymphocytes % (Manual) Monocytes % (Manual) Seg Neutrophils # Seg Neutrophils # Man Lymphocytes # (Manual) Monocytes # (Manual) PT INR APTT Fibrinogen D-Dimer ABG pH POC ABG pCO2 POC ABG pO2 ABG pO2 ABG HCO3 ABG O2 Saturation ABG Base Excess ABG Hemoglobin ABG Oxyhemoglobin Oxyhemoglobin Sodium 147 H Potassium Chloride 112.2 H Carbon Dioxide 21 L BUN 47 H Creatinine 1.9 H Glucose 272 H POC Glucose Lactic Acid Calcium 7.3 L Phosphorus Magnesium AST 64 H ALT 106 H Alkaline Phosphatase C-Reactive Protein Total Protein 5.1 L Albumin 2.9 L Triglycerides Ur Specific [place] Urine Creatinine 81.1 H Crossmatch 06/15/21 06/15/21 06/15/21 11:46 17:16 23:17 WBC RBC Hgb Hct MCV MCH RDW Plt Count Lymph % (Auto) [place] % (Auto) Lymph # (Auto) [place] # (Auto) Seg Neutrophils % Seg Neuts % (Manual) Lymphocytes % (Manual) Monocytes % (Manual) Seg Neutrophils # Seg Neutrophils # Man Lymphocytes # (Manual) Monocytes # (Manual) PT INR APTT Fibrinogen D-Dimer ABG pH POC ABG pCO2 POC ABG pO2 ABG pO2 ABG HCO3 ABG O2 Saturation ABG Base Excess ABG Hemoglobin ABG Oxyhemoglobin Oxyhemoglobin Sodium Potassium Chloride Carbon Dioxide BUN Creatinine Glucose POC Glucose 271 H 268 H 264 H Lactic Acid Calcium Phosphorus Magnesium AST ALT Alkaline Phosphatase C-Reactive Protein Total Protein Albumin Triglycerides Ur Specific [place] Urine Creatinine Crossmatch 06/15/21 06/15/21 06/16/21 Unknown Unknown 04:32 WBC RBC 3.21 L 3.16 L Hgb 8.4 L 8.2 L Hct 26.1 L 25.4 L MCV MCH 26 L 26 L RDW 21.3 H 21.2 H Plt Count 105 L 118 L Lymph % (Auto) [place] % (Auto) Lymph # (Auto) [place] # (Auto) Seg Neutrophils % Seg Neuts % (Manual) Lymphocytes % (Manual) Monocytes % (Manual) Seg Neutrophils # Seg Neutrophils # Man Lymphocytes # (Manual) Monocytes # (Manual) PT INR APTT Fibrinogen D-Dimer ABG pH 7.465 H POC ABG pCO2 POC ABG pO2 ABG pO2 114.1 H ABG HCO3 ABG O2 Saturation ABG Base Excess ABG Hemoglobin 8.4 L ABG Oxyhemoglobin Oxyhemoglobin Sodium Potassium Chloride Carbon Dioxide BUN Creatinine Glucose POC Glucose Lactic Acid Calcium Phosphorus Magnesium AST ALT Alkaline Phosphatase C-Reactive Protein Total Protein Albumin Triglycerides Ur Specific [place] Urine Creatinine Crossmatch 06/16/21 06/16/21 06/16/21 04:32 04:32 05:08 WBC RBC Hgb Hct MCV MCH RDW Plt Count Lymph % (Auto) [place] % (Auto) Lymph # (Auto) [place] # (Auto) Seg Neutrophils % Seg Neuts % (Manual) Lymphocytes % (Manual) Monocytes % (Manual) Seg Neutrophils # Seg Neutrophils # Man Lymphocytes # (Manual) Monocytes # (Manual) PT INR APTT Fibrinogen D-Dimer ABG pH POC ABG pCO2 POC ABG pO2 ABG pO2 ABG HCO3 ABG O2 Saturation ABG Base Excess ABG Hemoglobin ABG Oxyhemoglobin Oxyhemoglobin Sodium 148 H Potassium 3.3 L Chloride 115.1 H Carbon Dioxide 21 L BUN 54 H Creatinine 1.6 H Glucose 367 H POC Glucose 356 H Lactic Acid Calcium 7.4 L Phosphorus Magnesium AST ALT Alkaline Phosphatase C-Reactive Protein 3.30 H Total Protein Albumin Triglycerides Ur Specific [place] Urine Creatinine Crossmatch 06/16/21 06/16/21 06/16/21 05:30 11:46 17:03 WBC RBC Hgb Hct MCV MCH RDW Plt Count Lymph % (Auto) [place] % (Auto) Lymph # (Auto) [place] # (Auto) Seg Neutrophils % Seg Neuts % (Manual) Lymphocytes % (Manual) Monocytes % (Manual) Seg Neutrophils # Seg Neutrophils # Man Lymphocytes # (Manual) Monocytes # (Manual) PT INR APTT Fibrinogen D-Dimer ABG pH 7.475 H POC ABG pCO2 POC ABG pO2 ABG pO2 171.8 H ABG HCO3 ABG O2 Saturation 99.1 H ABG Base Excess ABG Hemoglobin 11.7 L ABG Oxyhemoglobin Oxyhemoglobin Sodium Potassium Chloride Carbon Dioxide BUN Creatinine Glucose POC Glucose 309 H 345 H Lactic Acid Calcium Phosphorus Magnesium AST ALT Alkaline Phosphatase C-Reactive Protein Total Protein Albumin Triglycerides Ur Specific [place] Urine Creatinine Crossmatch 06/16/21 06/16/21 06/17/21 20:18 23:22 04:50 WBC RBC Hgb Hct MCV MCH RDW Plt Count Lymph % (Auto) [place] % (Auto) Lymph # (Auto) [place] # (Auto) Seg Neutrophils % Seg Neuts % (Manual) Lymphocytes % (Manual) Monocytes % (Manual) Seg Neutrophils # Seg Neutrophils # Man Lymphocytes # (Manual) Monocytes # (Manual) PT INR APTT Fibrinogen D-Dimer ABG pH 7.479 H POC ABG pCO2 POC ABG pO2 ABG pO2 143.1 H ABG HCO3 ABG O2 Saturation ABG Base Excess ABG Hemoglobin 10.0 L ABG Oxyhemoglobin Oxyhemoglobin Sodium Potassium Chloride Carbon Dioxide BUN Creatinine Glucose POC Glucose 325 H 315 H Lactic Acid Calcium Phosphorus Magnesium AST ALT Alkaline Phosphatase C-Reactive Protein Total Protein Albumin Triglycerides Ur Specific [place] Urine Creatinine Crossmatch 06/17/21 06/17/21 06/17/21 05:18 05:30 05:30 WBC RBC 3.17 L Hgb 8.2 L Hct 25.5 L MCV MCH 26 L RDW 21.2 H Plt Count 128 L Lymph % (Auto) [place] % (Auto) Lymph # (Auto) [place] # (Auto) Seg Neutrophils % Seg Neuts % (Manual) Lymphocytes % (Manual) Monocytes % (Manual) Seg Neutrophils # Seg Neutrophils # Man Lymphocytes # (Manual) Monocytes # (Manual) PT INR APTT Fibrinogen D-Dimer ABG pH POC ABG pCO2 POC ABG pO2 ABG pO2 ABG HCO3 ABG O2 Saturation ABG Base Excess ABG Hemoglobin ABG Oxyhemoglobin Oxyhemoglobin Sodium 148 H Potassium Chloride 113.7 H Carbon Dioxide 20 L BUN 57 H Creatinine 1.4 H Glucose 351 H POC Glucose 324 H Lactic Acid Calcium 8.0 L Phosphorus 2.30 L Magnesium AST ALT Alkaline Phosphatase C-Reactive Protein Total Protein Albumin Triglycerides Ur Specific [place] Urine Creatinine Crossmatch 06/17/21 06/17/21 06/17/21 11:49 17:43 21:42 WBC RBC Hgb Hct MCV MCH RDW Plt Count Lymph % (Auto) [place] % (Auto) Lymph # (Auto) [place] # (Auto) Seg Neutrophils % Seg Neuts % (Manual) Lymphocytes % (Manual) Monocytes % (Manual) Seg Neutrophils # Seg Neutrophils # Man Lymphocytes # (Manual) Monocytes # (Manual) PT INR APTT Fibrinogen D-Dimer ABG pH POC ABG pCO2 POC ABG pO2 ABG pO2 ABG HCO3 ABG O2 Saturation ABG Base Excess ABG Hemoglobin ABG Oxyhemoglobin Oxyhemoglobin Sodium Potassium Chloride Carbon Dioxide BUN Creatinine Glucose POC Glucose 305 H 307 H 286 H Lactic Acid Calcium Phosphorus Magnesium AST ALT Alkaline Phosphatase C-Reactive Protein Total Protein Albumin Triglycerides Ur Specific [place] Urine Creatinine Crossmatch 06/17/21 06/18/21 06/18/21 23:59 04:20 04:37 WBC RBC 3.53 L Hgb 9.1 L Hct 28.7 L MCV MCH 26 L RDW 21.3 H Plt Count Lymph % (Auto) [place] % (Auto) Lymph # (Auto) [place] # (Auto) Seg Neutrophils % Seg Neuts % (Manual) Lymphocytes % (Manual) Monocytes % (Manual) Seg Neutrophils # Seg Neutrophils # Man Lymphocytes # (Manual) Monocytes # (Manual) PT INR APTT Fibrinogen D-Dimer ABG pH 7.495 H POC ABG pCO2 POC ABG pO2 ABG pO2 108.3 H ABG HCO3 ABG O2 Saturation ABG Base Excess -2.1 L ABG Hemoglobin 10.0 L ABG Oxyhemoglobin Oxyhemoglobin Sodium Potassium Chloride Carbon Dioxide BUN Creatinine Glucose POC Glucose 264 H Lactic Acid Calcium Phosphorus Magnesium AST ALT Alkaline Phosphatase C-Reactive Protein Total Protein Albumin Triglycerides Ur Specific [place] Urine Creatinine Crossmatch 06/18/21 06/18/21 06/18/21 04:37 05:32 11:21 WBC RBC Hgb Hct MCV MCH RDW Plt Count Lymph % (Auto) [place] % (Auto) Lymph # (Auto) [place] # (Auto) Seg Neutrophils % Seg Neuts % (Manual) Lymphocytes % (Manual) Monocytes % (Manual) Seg Neutrophils # Seg Neutrophils # Man Lymphocytes # (Manual) Monocytes # (Manual) PT INR APTT Fibrinogen D-Dimer ABG pH POC ABG pCO2 POC ABG pO2 ABG pO2 ABG HCO3 ABG O2 Saturation ABG Base Excess ABG Hemoglobin ABG Oxyhemoglobin Oxyhemoglobin Sodium 148 H Potassium Chloride 114.7 H Carbon Dioxide BUN 59 H Creatinine 1.3 H Glucose 329 H POC Glucose 293 H 291 H Lactic Acid Calcium 8.1 L Phosphorus Magnesium AST ALT Alkaline Phosphatase C-Reactive Protein Total Protein Albumin Triglycerides Ur Specific [place] Urine Creatinine Crossmatch 06/18/21 06/18/21 06/19/21 18:21 21:46 00:15 WBC RBC Hgb Hct MCV MCH RDW Plt Count Lymph % (Auto) [place] % (Auto) Lymph # (Auto) [place] # (Auto) Seg Neutrophils % Seg Neuts % (Manual) Lymphocytes % (Manual) Monocytes % (Manual) Seg Neutrophils # Seg Neutrophils # Man Lymphocytes # (Manual) Monocytes # (Manual) PT INR APTT Fibrinogen D-Dimer ABG pH POC ABG pCO2 POC ABG pO2 ABG pO2 ABG HCO3 ABG O2 Saturation ABG Base Excess ABG Hemoglobin ABG Oxyhemoglobin Oxyhemoglobin Sodium Potassium Chloride Carbon Dioxide BUN Creatinine Glucose POC Glucose 239 H 259 H 310 H Lactic Acid Calcium Phosphorus Magnesium AST ALT Alkaline Phosphatase C-Reactive Protein Total Protein Albumin Triglycerides Ur Specific [place] Urine Creatinine Crossmatch 06/19/21 06/19/21 06/19/21 04:00 04:00 04:50 WBC RBC 3.64 L Hgb 9.1 L Hct 29.1 L MCV MCH 25 L RDW 21.5 H Plt Count Lymph % (Auto) [place] % (Auto) Lymph # (Auto) [place] # (Auto) Seg Neutrophils % Seg Neuts % (Manual) Lymphocytes % (Manual) Monocytes % (Manual) Seg Neutrophils # Seg Neutrophils # Man Lymphocytes # (Manual) Monocytes # (Manual) PT INR APTT Fibrinogen D-Dimer ABG pH POC ABG pCO2 POC ABG pO2 ABG pO2 78.9 L ABG HCO3 ABG O2 Saturation ABG Base Excess -3.2 L ABG Hemoglobin 7.6 L ABG Oxyhemoglobin Oxyhemoglobin Sodium 148 H Potassium Chloride 114.9 H Carbon Dioxide 19 L BUN 59 H Creatinine Glucose 345 H POC Glucose Lactic Acid Calcium 8.1 L Phosphorus 4.60 H D Magnesium 2.40 H AST ALT Alkaline Phosphatase C-Reactive Protein Total Protein Albumin Triglycerides Ur Specific [place] Urine Creatinine Crossmatch 06/19/21 06/19/21 06/19/21 06:28 11:11 17:20 WBC RBC Hgb Hct MCV MCH RDW Plt Count Lymph % (Auto) [place] % (Auto) Lymph # (Auto) [place] # (Auto) Seg Neutrophils % Seg Neuts % (Manual) Lymphocytes % (Manual) Monocytes % (Manual) Seg Neutrophils # Seg Neutrophils # Man Lymphocytes # (Manual) Monocytes # (Manual) PT 29.7 H INR 2.57 H APTT Fibrinogen D-Dimer ABG pH POC ABG pCO2 POC ABG pO2 ABG pO2 ABG HCO3 ABG O2 Saturation ABG Base Excess ABG Hemoglobin ABG Oxyhemoglobin Oxyhemoglobin Sodium Potassium Chloride Carbon Dioxide BUN Creatinine Glucose POC Glucose 279 H 275 H Lactic Acid Calcium Phosphorus Magnesium AST ALT Alkaline Phosphatase C-Reactive Protein Total Protein Albumin Triglycerides Ur Specific [place] Urine Creatinine Crossmatch 06/19/21 06/19/21 06/19/21 18:30 19:20 23:27 WBC RBC Hgb 8.0 L Hct 25.0 L MCV MCH RDW Plt Count Lymph % (Auto) [place] % (Auto) Lymph # (Auto) [place] # (Auto) Seg Neutrophils % Seg Neuts % (Manual) Lymphocytes % (Manual) Monocytes % (Manual) Seg Neutrophils # Seg Neutrophils # Man Lymphocytes # (Manual) Monocytes # (Manual) PT INR APTT Fibrinogen D-Dimer ABG pH POC ABG pCO2 POC ABG pO2 ABG pO2 ABG HCO3 ABG O2 Saturation ABG Base Excess ABG Hemoglobin ABG Oxyhemoglobin Oxyhemoglobin Sodium Potassium Chloride Carbon Dioxide BUN Creatinine Glucose POC Glucose 279 H 290 H Lactic Acid Calcium Phosphorus Magnesium AST ALT Alkaline Phosphatase C-Reactive Protein Total Protein Albumin Triglycerides Ur Specific [place] Urine Creatinine Crossmatch 06/20/21 06/20/21 06/20/21 00:00 04:33 04:33 WBC 22.3 H RBC 3.31 L Hgb 7.4 L 8.5 L Hct 22.5 L 26.5 L MCV MCH 26 L RDW 21.5 H Plt Count Lymph % (Auto) [place] % (Auto) Lymph # (Auto) [place] # (Auto) Seg Neutrophils % Seg Neuts % (Manual) Lymphocytes % (Manual) Monocytes % (Manual) Seg Neutrophils # Seg Neutrophils # Man Lymphocytes # (Manual) Monocytes # (Manual) PT INR APTT Fibrinogen D-Dimer ABG pH POC ABG pCO2 POC ABG pO2 ABG pO2 ABG HCO3 ABG O2 Saturation ABG Base Excess ABG Hemoglobin ABG Oxyhemoglobin Oxyhemoglobin Sodium 148 H Potassium Chloride 114.2 H Carbon Dioxide BUN 70 H Creatinine 1.4 H Glucose 313 H POC Glucose Lactic Acid Calcium 8.2 L Phosphorus Magnesium 2.50 H AST ALT Alkaline Phosphatase C-Reactive Protein Total Protein Albumin Triglycerides Ur Specific [place] Urine Creatinine Crossmatch 06/20/21 06/20/21 06/20/21 04:33 05:27 11:21 WBC RBC Hgb Hct MCV MCH RDW Plt Count Lymph % (Auto) [place] % (Auto) Lymph # (Auto) [place] # (Auto) Seg Neutrophils % Seg Neuts % (Manual) Lymphocytes % (Manual) Monocytes % (Manual) Seg Neutrophils # Seg Neutrophils # Man Lymphocytes # (Manual) Monocytes # (Manual) PT 18.3 H INR 1.37 H APTT Fibrinogen D-Dimer ABG pH POC ABG pCO2 POC ABG pO2 ABG pO2 ABG HCO3 ABG O2 Saturation ABG Base Excess ABG Hemoglobin ABG Oxyhemoglobin Oxyhemoglobin Sodium Potassium Chloride Carbon Dioxide BUN Creatinine Glucose POC Glucose 288 H 306 H Lactic Acid Calcium Phosphorus Magnesium AST ALT Alkaline Phosphatase C-Reactive Protein Total Protein Albumin Triglycerides Ur Specific [place] Urine Creatinine Crossmatch 06/20/21 06/20/21 06/20/21 12:23 15:56 18:20 WBC RBC Hgb 8.2 L 8.1 L Hct 25.9 L 25.5 L MCV MCH RDW Plt Count Lymph % (Auto) [place] % (Auto) Lymph # (Auto) [place] # (Auto) Seg Neutrophils % Seg Neuts % (Manual) Lymphocytes % (Manual) Monocytes % (Manual) Seg Neutrophils # Seg Neutrophils # Man Lymphocytes # (Manual) Monocytes # (Manual) PT INR APTT Fibrinogen D-Dimer ABG pH POC ABG pCO2 POC ABG pO2 ABG pO2 ABG HCO3 ABG O2 Saturation ABG Base Excess ABG Hemoglobin ABG Oxyhemoglobin Oxyhemoglobin Sodium Potassium Chloride Carbon Dioxide BUN Creatinine Glucose POC Glucose 293 H Lactic Acid Calcium Phosphorus Magnesium AST ALT Alkaline Phosphatase C-Reactive Protein Total Protein Albumin Triglycerides Ur Specific [place] Urine Creatinine Crossmatch 06/20/21 06/21/21 06/21/21 23:11 04:20 04:42 WBC 15.1 H RBC 2.84 L Hgb 7.3 L Hct 23.1 L MCV MCH 26 L RDW 21.5 H Plt Count Lymph % (Auto) 3.5 L [place] % (Auto) 11.7 H Lymph # (Auto) 0.5 L [place] # (Auto) 1.8 H Seg Neutrophils % 84.7 H Seg Neuts % (Manual) Lymphocytes % (Manual) Monocytes % (Manual) Seg Neutrophils # 12.8 H Seg Neutrophils # Man Lymphocytes # (Manual) Monocytes # (Manual) PT INR APTT Fibrinogen D-Dimer ABG pH POC ABG pCO2 POC ABG pO2 ABG pO2 98.5 H ABG HCO3 ABG O2 Saturation ABG Base Excess ABG Hemoglobin 7.2 L ABG Oxyhemoglobin Oxyhemoglobin Sodium Potassium Chloride Carbon Dioxide BUN Creatinine Glucose POC Glucose 206 H Lactic Acid Calcium Phosphorus Magnesium AST ALT Alkaline Phosphatase C-Reactive Protein Total Protein Albumin Triglycerides Ur Specific [place] Urine Creatinine Crossmatch 06/21/21 06/21/21 06/21/21 04:42 05:08 11:06 WBC RBC Hgb Hct MCV MCH RDW Plt Count Lymph % (Auto) [place] % (Auto) Lymph # (Auto) [place] # (Auto) Seg Neutrophils % Seg Neuts % (Manual) Lymphocytes % (Manual) Monocytes % (Manual) Seg Neutrophils # Seg Neutrophils # Man Lymphocytes # (Manual) Monocytes # (Manual) PT INR APTT Fibrinogen D-Dimer ABG pH POC ABG pCO2 POC ABG pO2 ABG pO2 ABG HCO3 ABG O2 Saturation ABG Base Excess ABG Hemoglobin ABG Oxyhemoglobin Oxyhemoglobin Sodium 151 H Potassium Chloride 117.2 H Carbon Dioxide 21 L BUN 75 H Creatinine 1.6 H Glucose 216 H POC Glucose 190 H 204 H Lactic Acid Calcium 7.9 L Phosphorus Magnesium 2.60 H AST ALT Alkaline Phosphatase C-Reactive Protein Total Protein Albumin Triglycerides 254 H Ur Specific [place] Urine Creatinine Crossmatch
--- NOTE | 2021-06-21 11:53 | Progress Note ---
<VIOLETTE DEMPSEY - Last Filed: 06/21/21 17:13> Assessment and Plan Assessment and plan: This is a 76-year-old female with HTN, Coumadin use , dental caries, PVD s/p stenting right leg, DM, arthritis, depression, gout, and ? Pulmonary hypertension who presented to emergency department on 06/11 with complaints of pain to mandible area and throat and swelling. Work-up in the emergency department included CT scan of the head and neck which showed findings consistent with Jeremiah's angina and anesthesia was called for intubation. Anesthesia intubation attempts were unsuccessful and surgery was consulted for cricothyroidotomy which was unsuccessful in the emergency department and patient was taken to the OR for tracheostomy. Intubation procedure was complicated by development of pneumothorax and excessive bleeding due to supratherapeutic INR s/p multiple FFP's and vitamin K. Remains intubated and sedated in the ICU. Hospital course to date: 06/12: Patient received additional 2 units FFP and 1 unit PRBC and vitamin K today. Overnight critical care placed a femoral CVL. Patient sedated on fe ntanyl, propofol and Versed. Currently on Fabian-Synephrine and Levophed for blood pressure maintenance. Remains amatory support. Infectious disease consulted. Started on sliding scale insulin and recultured. COVID-19 PCR pending. Surgery at bedside to place chest tube. 06/13: Patient was taken back to the OR today for exchange cricothyroid to possible tracheostomy. Patient returned with ETT. Chest tube was changed to larger size in the OR. Patient was hypotensive, tachycardic, hypoxic in the OR and received hespan, albumin and an A-line. Upon arrival patient was increased to max dose Levophed for hypotension which has resolved. Titrating vasopressors as tolerated. Remains on sedation with 3 agents. Apparently patient was not ventilating her left lung Intra-Op. Noted to have subcu hematoma and trauma to postpharyngeal area. Questionable decrease cardiac wall motion noted in OR-> w ill order echocardiogram to further investigate. Patient received additional PRBC today. DIC panel resulted as normal. Patient BUN/creatinine did increase as well as noted to have lactic acidosis. May need IV bolus in addition to pressor use. Likely bronc with Pulmicort today as repeat CXR showed right possible pneumo hydrothorax 06/14: Antibiotics changed to Zosyn per ID, surgical packing removed from neck and makeshift [place] drain placed by surgery and old chronic thyroidectomy site. CXR was completed and RN heard gurgling and blood was noted on dressing. ST elevation noted on bedside monitor and patient was hypoxic. FiO2 increased to 100%. However shortly after patient lost her pulse and ACLS was initiated. Patient received 3 rounds of epinephrine and ROSC was achieved. Stat portable CXR showed resolution of lower lobe collapse on the left and stable right-sided chest tube with hemothorax. CCM updated family. Patient H/H noted to be 7.2/23.2 and did RN to transfuse prepared PRBC which [facility] blood bank. Bedside echo completed. 06/15: Off sedation, intermittently follows commands, remains on the prednisone. Surgery will reassess airway on Thursday to see if any further support is required. Urine studies indicate prerenal, given IV bolus and started on Clinimix today. 06/16: Patient restarted on fentanyl drip due to hypertension. Given more LR due to CR improvement post LR yesterday. Patient started on Lantus subcu after given one-time dose of Lantus. PICC placed today. Patient had a CT chest today which showed no mediasinusitis but extensive subcutaneous air. 06/17: General Surgery recommended transferring patient to a ENT specialized facility. Placed a call to [place] [facility], spoke with the artificial plastic eye maker, Dr. Duckworth, who stated that a transfer is possible as long their ENT team accept the patient. Awaiting on a final response. Continue current supportive measures. Basal insulin adjusted for hyperglycemia. 06/18: JEREMIAS overnight. Hypertensive this am, PRN Hydralazine for SBP greater than 160. Remains hyperglycemic, patient is on IV steroids and TPN, basal insulin adjusted. Plan for possible transfer to [place] once an ICU bed is available. 06/19: Low SPO2 and hypotension overnight required Levophed for a short time. Overnight CXR noted with no significant changed. Patient is stable this am and off pressors. Plan for possible Trach and PEG today by General Surgery. 06/20: s/p Trach and PEG. Some bleeding overnight s/p X1 dose of Vitamin K. The bleeding resolved this am, H&H remains stable. Attempted a SAT this am, patient went into SVT, HR in the 160-170 which resolved once sedations were resumed. Plan is to continue to sedation for now, attempt to wean off propofol for a RASS goal of 0 to -2. D/C CCM plan is to wean off sedation as tolerated for PST for possible extubation. Okay to use PEGT per Gen. Surgery. Nutrition consulted for TF management, TF to start tonight once current TPN bag is completed. BG remains elevated, continue current SSI and basal for now, will start tapering IV steroids tomorrow. FWF added for hyponatremia. Wean off pressors as tolerated for MAP above 65. Possible transfer to [place] for ENT eval. 06/20: Overnight events and CXR noted. Worsen subcutaneous emphysema and Rt. Pneumo. CT remains in place and intact to cont. wall suction. Patient remains hemodynamically stable, still on low vent setting. will continue to monitor for now. Patient is also tolerating enteral nutrition via PEGT, TPN D/benjamín. H&H is also trending down, no s/s of any active bleeding. Will continue to trend H&H, t ransfuse if hgb is less than 7. FWF increased for hypernatremia. Still waiting on possible transfer to [place]. Neuro: Sedated, h/o depression, arthritis -Awake and following commands, on fentanyl -RASS goal 0 to -1 -Avoid delirium -Reorientation as needed -Maintain sleep-wake cycle Cardiac: S/p cardiac arrest, h/o htn, PVD s/p stenting Right leg -06/14 cardiac arrest with ROSC -S/p vasopressor support with Levophed and Fabian-Synephrine -Blood pressure monitoring per protocol -Pressure monitoring via A-line -06/13 Echocardiogram EF 65-70% Respiratory: Acute hypoxic respiratory failure, right pneumothorax -CCM consulted, appreciate recommendations -S/p emergent cricothyroid with surgery with 8.00 ETT -06/19 s/p Tracheostmy -A.m. vent settings:PRVC-30%,6,18,450 -CXR noted with increase subQ air, no pneumothorax; CT remains to continuous wall suction -Right chest tube replaced by surgery -CT to wall suction -Changed to larger bore on 06/13 -Postop CXR shows possible hydropneumothorax on right side -06/13 bronchoscopy showed possible blood clot in left lung which may be acting as mucous plug however it was left in place due to possible bleeding inside lung if removed. -CXR post cardiac arrest shows clearance of mucous plug -06/16 CT chest shows moderate right pneumothorax with collapse of right upper lobe, right thoracostomy tube terminates at the collapsed right upper lobe, bilateral bronchus opacities compatible with infectious/inflammatory etiology, bilateral small pleural effusion, extensive subcutaneous air, small fluid collection in the anterior mediastinum is nonspecific -VAP bundle -SPO2 monitoring : Acute kidney injury possibly secondary to vasomotor nephropathy hypernatremia -FWF increased -Strict intake and output -Renally dose medications -Avoid nephrotoxic medications -Daily weights -Consider nephrology consult if worsens -Trend BMP ID: 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 dental caries -CT neck with contrast showed a significant right floor of mild swelling with extension into the submandibular and submental spaces, significant thickening and inflammation involving the right pharyngeal wall, with the parapharyngeal and retropharyngeal spaces at the level of the thyroid cartilage, epiglottis significantly swollen and so are the aryepiglottic folds resulting in significant airway narrowing at this level, no lymphadenopathy, symmetric submandibular and parathyroid glands, S few scattered caries but no periapical lucencies, nonspecific calcification along the right lateral oropharynx, no definite stone seen within the territory of the submandibular gland ducts, no suspicious rashes lesion -Infectious disease and general surgery consulted, appreciate recommendations -s/p cricothyroidectomy -Will follow surgery to direction and treatment of injury -Per surgery may have mucosal injury -Intra-Op findings include post pharyngeal swelling and bruising -Solu-Medrol 125 every 8 -Antibiotic therapy Zosyn -COVID-19 PCR negative -f/u blood culture -Monitor WBC and temperature curve -s/p 5L normal saline bolus in ED, 6 L LR bolus in ICU - repeat LR bolus today Heme: Coagulopathy, supratherapeutic INR, acute blood loss anemiq, possible component of hemorrhagic shock -Patient is on Coumadin at home -S/p 5 FFP, 7 PRBC, vitamin K x3 -Trend CBC -Presented with H/H of 10.3/34.6 and decreased to 6.7/22.4 -INR 8.18-> 4.55-> 2.1-> 1.23-> 1.16-> 1.31 -Monitor INR -Transfuse hemoglobin less than 7 -Monitor for signs of bleeding -SCDs to BLE while in bed -Avoid chemical anticoagulation in setting of recent blood loss anemia Endo: Hyperglycemia, h/o DM, gout -Patient is on TPN and on IV steroids -06/19 s/p PEG Tube placement- okay to use per Gen surgery -Nutrition consulted for TF management -Patient is tolerating TF, advanced TF to goal as tolerated -Continue high dose SSI Q6hrs and lantus BID -Tapering IV steroids tomorrow -Avoid hypoglycemia The high probability of a clinically significant, sudden or life threatening deterioration of the [multi] system(s) required my full and direct attention, intervention and personal management. The aggregate critical care time was [60] minutes. This time is in addition to time spent performing reported procedures but includes the following: [x] Data Review and interpretation [x] Patient assessment and monitoring of vital signs [x] Documentation [x] Medication orders and management Disposition Plan: ICU Total Time Spent with Patient (Minutes): 60 History Interval history: Patient seen and examined at the bedside. Remains on sedation, however, awake this am, following simple commands. Worsen subcutaneous emphesa and Rt. pneumothorax overnight. CT remains in place to wall suction. Trach inner cannula was also exchanged due to severe leak around trach site Hospitalist Physical - Constitutional Vitals: Temp Pulse Resp BP Pulse Ox 98.5 F 83 24 129/81 99 06/21/21 11:29 06/21/21 11:16 06/21/21 11:16 06/21/21 11:16 06/21/21 11:16 General appearance: Present: no acute distress, obese, other (On the vent and on sedation) - EENT Eyes: Present: PERRL ENT: hearing intact - Respiratory Respiratory effort: normal Respiratory: bilateral: diminished - Cardiovascular Rhythm: regular Heart Sounds: Present: S1 & S2 - Extremities Extremities: no ischemia, pulses intact, pulses symmetrical Extremity abnormal: edema, other (Subcutaneous emphysema) Peripheral Pulses: within normal limits - Abdominal General gastrointestinal: soft, normal bowel sounds, other (obese) - Integumentary Integumentary: Present: warm, dry - Psychiatric Psychiatric: appropriate mood/affect, cooperative - Neurologic Neurologic: other (MARK) - Allied Health Allied health notes reviewed: nursing HEART Score - HEART Score Troponin: Troponin T < 0.010 ng/mL (0.00-0.029) 06/11/21 23:21 Results - Labs CBC & Chem 7: 06/21/21 14:00 06/21/21 04:42 Labs: Laboratory Last Values WBC 15.1 K/mm3 (4.5-11.0) H 06/21/21 04:42 RBC 2.84 M/mm3 (3.65-5.03) L 06/21/21 04:42 Hgb 7.3 gm/dl (10.1-14.3) L 06/21/21 04:42 Hct 23.1 % (30.3-42.9) L 06/21/21 04:42 MCV 81 fl (79-97) 06/21/21 04:42 MCH 26 pg (28-32) L 06/21/21 04:42 MCHC 32 % (30-34) 06/21/21 04:42 RDW 21.5 % (13.2-15.2) H 06/21/21 04:42 Plt Count 231 K/mm3 (140-440) 06/21/21 04:42 Lymph % (Auto) 3.5 % (13.4-35.0) L 06/21/21 04:42 [place] % (Auto) 11.7 % (0.0-7.3) H 06/21/21 04:42 Eos % (Auto) 0.0 % (0.0-4.3) 06/21/21 04:42 Baso % (Auto) 0.1 % (0.0-1.8) 06/21/21 04:42 Lymph # (Auto) 0.5 K/mm3 (1.2-5.4) L 06/21/21 04:42 [place] # (Auto) 1.8 K/mm3 (0.0-0.8) H 06/21/21 04:42 Eos # (Auto) 0.0 K/mm3 (0.0-0.4) 06/21/21 04:42 Baso # (Auto) 0.0 K/mm3 (0.0-0.1) 06/21/21 04:42 Add Manual Diff Complete 06/13/21 Unknown Total Counted 100 06/13/21 Unknown Seg Neutrophils % 84.7 % (40.0-70.0) H 06/21/21 04:42 Seg Neuts % (Manual) 88.0 % (40.0-70.0) H 06/13/21 Unknown Band Neutrophils % 2.0 % 06/13/21 Unknown Lymphocytes % (Manual) 4.0 % (13.4-35.0) L 06/13/21 Unknown Reactive Lymphs % (Man) 0 % 06/13/21 Unknown Monocytes % (Manual) 6.0 % (0.0-7.3) 06/13/21 Unknown Eosinophils % (Manual) 0 % (0.0-4.3) 06/13/21 Unknown Basophils % (Manual) 0 % (0.0-1.8) 06/13/21 Unknown Metamyelocytes % 0 % 06/13/21 Unknown Myelocytes % 0 % 06/13/21 Unknown Promyelocytes % 0 % 06/13/21 Unknown Blast Cells % 0 % 06/13/21 Unknown Nucleated RBC % Not Reportable 06/13/21 Unknown Seg Neutrophils # 12.8 K/mm3 (1.8-7.7) H 06/21/21 04:42 Seg Neutrophils # Man 19.8 K/mm3 (1.8-7.7) H 06/13/21 Unknown Band Neutrophils # 0.5 K/mm3 06/13/21 Unknown Lymphocytes # (Manual) 0.9 K/mm3 (1.2-5.4) L 06/13/21 Unknown Abs React Lymphs (Man) 0.0 K/mm3 06/13/21 Unknown Monocytes # (Manual) 1.4 K/mm3 (0.0-0.8) H 06/13/21 Unknown Eosinophils # (Manual) 0.0 K/mm3 (0.0-0.4) 06/13/21 Unknown Basophils # (Manual) 0.0 K/mm3 (0.0-0.1) 06/13/21 Unknown Metamyelocytes # 0.0 K/mm3 06/13/21 Unknown Myelocytes # 0.0 K/mm3 06/13/21 Unknown Promyelocytes # 0.0 K/mm3 06/13/21 Unknown Blast Cells # 0.0 K/mm3 06/13/21 Unknown WBC Morphology Not Reportable 06/13/21 Unknown Hypersegmented Neuts Not Reportable 06/13/21 Unknown Hyposegmented Neuts Not Reportable 06/13/21 Unknown Hypogranular Neuts Not Reportable 06/13/21 Unknown Smudge Cells Not Reportable 06/13/21 Unknown Toxic Granulation 2+ 06/13/21 Unknown Toxic Vacuolation Not Reportable 06/13/21 Unknown Dohle Bodies Not Reportable 06/13/21 Unknown Pelger-Huet Anomaly Not Reportable 06/13/21 Unknown Dennis Rods Not Reportable 06/13/21 Unknown Platelet Estimate Consistent w auto 06/13/21 Unknown Clumped Platelets Not Reportable 06/13/21 Unknown Plt Clumps, EDTA Not Reportable 06/13/21 Unknown Large Platelets Not Reportable 06/13/21 Unknown Giant Platelets Not Reportable 06/13/21 Unknown Platelet Satelliting Not Reportable 06/13/21 Unknown Plt Morphology Comment Not Reportable 06/13/21 Unknown RBC Morphology Not Reportable 06/13/21 Unknown Dimorphic RBCs Not Reportable 06/13/21 Unknown Polychromasia Few 06/13/21 Unknown Hypochromasia 2+ 06/13/21 Unknown Poikilocytosis Not Reportable 06/13/21 Unknown Anisocytosis 1+ 06/13/21 Unknown Microcytosis Not Reportable 06/13/21 Unknown Macrocytosis Not Reportable 06/13/21 Unknown Spherocytes Not Reportable 06/13/21 Unknown Pappenheimer Bodies Not Reportable 06/13/21 Unknown Sickle Cells Not Reportable 06/13/21 Unknown Target Cells Not Reportable 06/13/21 Unknown Tear Drop Cells Not Reportable 06/13/21 Unknown Ovalocytes Not Reportable 06/13/21 Unknown Stomatocytes Few 06/12/21 01:45 Helmet Cells Not Reportable 06/13/21 Unknown [place] Bodies Not Reportable 06/13/21 Unknown Burt Rings Not Reportable 06/13/21 Unknown Nelsy Cells Not Reportable 06/13/21 Unknown Bite Cells Not Reportable 06/13/21 Unknown Crenated Cell Not Reportable 06/13/21 Unknown Elliptocytes Not Reportable 06/13/21 Unknown Acanthocytes (Spur) Not Reportable 06/13/21 Unknown Rouleaux Not Reportable 06/13/21 Unknown Hemoglobin C Crystals Not Reportable 06/13/21 Unknown Schistocytes Not Reportable 06/13/21 Unknown Malaria parasites Not Reportable 06/13/21 Unknown Edin Bodies Not Reportable 06/13/21 Unknown Hem Pathologist Commnt No 06/13/21 Unknown PT 18.3 Sec. (12.2-14.9) H 06/20/21 04:33 INR 1.37 (0.87-1.13) H 06/20/21 04:33 APTT 26.4 Sec. (24.2-36.6) 06/13/21 Unknown Fibrinogen 546 mg/dl (211-480) H 06/13/21 Unknown D-Dimer 1244.63 ng/mlDDU (0-234) H 06/13/21 Unknown ABG pH 7.426 pH Units (7.350-7.450) 06/21/21 04:20 POC ABG pCO2 25.6 mmHg (32.0-48.0) L 06/13/21 04:31 ABG pCO2 35.1 mm Hg 06/21/21 04:20 POC ABG pO2 138.8 mmHg (83-108) H 06/13/21 04:31 ABG pO2 98.5 mm Hg (80.0-90.0) H 06/21/21 04:20 POC ABG HCO3 21.4 06/13/21 04:31 ABG HCO3 22.6 mmol/L (20.0-26.0) 06/21/21 04:20 ABG O2 Saturation 97.7 % (95.0-99.0) 06/21/21 04:20 ABG O2 Content 9.9 (0.0-44) 06/21/21 04:20 POC ABG Base Excess -0.7 06/13/21 04:31 ABG Base Excess -1.6 mmol/L (-2.0-3.0) 06/21/21 04:20 ABG Hemoglobin 7.2 gm/dl (12.0-16.0) L 06/21/21 04:20 ABG Oxyhemoglobin 98.1 (94-98) H 06/13/21 04:31 ABG Carboxyhemoglobin 1.7 % (0.0-5.0) 06/21/21 04:20 ABG Methemoglobin 0.5 % (0.0-1.5) 06/21/21 04:20 Oxyhemoglobin 95.5 % (95.0-99.0) 06/21/21 04:20 Carboxyhemoglobin 0.8 (0.5-1.5) 06/13/21 04:31 FiO2 30 % 06/21/21 04:20 FiO2 % 40.0 06/13/21 04:31 Sodium 151 mmol/L (137-145) H 06/21/21 04:42 Potassium 4.2 mmol/L (3.6-5.0) 06/21/21 04:42 Chloride 117.2 mmol/L (98-107) H 06/21/21 04:42 Carbon Dioxide 21 mmol/L (22-30) L 06/21/21 04:42 Anion Gap 17 mmol/L 06/21/21 04:42 BUN 75 mg/dL (7-17) H 06/21/21 04:42 Creatinine 1.6 mg/dL (0.6-1.2) H 06/21/21 04:42 Estimated GFR 38 ml/min 06/21/21 04:42 BUN/Creatinine Ratio 47 % 06/21/21 04:42 Glucose 216 mg/dL (65-100) H 06/21/21 04:42 POC Glucose 204 mg/dL (70-105) H 06/21/21 11:06 Lactic Acid 5.30 mmol/L (0.7-2.0) H* 06/13/21 15:45 Calcium 7.9 mg/dL (8.4-10.2) L 06/21/21 04:42 Phosphorus 3.20 mg/dL (2.5-4.5) D 06/21/21 04:42 Magnesium 2.60 mg/dL (1.7-2.3) H 06/21/21 04:42 Total Bilirubin 0.40 mg/dL (0.1-1.2) 06/15/21 03:56 AST 64 units/L (5-40) H 06/15/21 03:56 ALT 106 units/L (7-56) H 06/15/21 03:56 Alkaline Phosphatase 55 units/L (35-129) 06/15/21 03:56 Troponin T < 0.010 ng/mL (0.00-0.029) 06/11/21 23:21 C-Reactive Protein 3.30 mg/dL (0.00-1.30) H 06/16/21 04:32 Total Protein 5.1 g/dL (6.3-8.2) L 06/15/21 03:56 Albumin 2.9 g/dL (3.9-5) L 06/15/21 03:56 Albumin/Globulin Ratio 1.3 % 06/15/21 03:56 Triglycerides 254 mg/dL (2-149) H 06/21/21 04:42 Urine Color Yellow (Yellow) 06/12/21 17:00 Urine Turbidity Clear (Clear) 06/12/21 17:00 Urine pH 5.0 (5.0-7.0) 06/12/21 17:00 Ur Specific [place] 1.035 (1.003-1.030) H 06/12/21 17:00 Urine Protein 30 mg/dl mg/dL (Negative) 06/12/21 17:00 Urine Glucose (UA) 50 mg/dL (Negative) 06/12/21 17:00 Urine Ketones Tr mg/dL (Negative) 06/12/21 17:00 Urine Blood Neg (Negative) 06/12/21 17:00 Urine Nitrite Neg (Negative) 06/12/21 17:00 Urine Bilirubin Neg (Negative) 06/12/21 17:00 Urine Urobilinogen < 2.0 mg/dL (<2.0) 06/12/21 17:00 Ur Leukocyte Esterase Neg (Negative) 06/12/21 17:00 Urine WBC (Auto) < 1.0 /HPF (0.0-6.0) 06/12/21 17:00 Urine RBC (Auto) < 1.0 /HPF (0.0-6.0) 06/12/21 17:00 Urine Creatinine 81.1 mg/dL (0.1-20.0) H 06/15/21 10:40 Urine Sodium 42 mmol/L 06/15/21 10:40 Coronavirus (PCR) Negative (Negative) 06/12/21 09:50 Blood Type O POSITIVE 06/11/21 19:20 Antibody Screen Negative 06/11/21 19:20 Crossmatch See Detail 06/11/21 19:20 Lujan/IV: Voiding Method Indwelling Catheter Active Medications - Current Medications Current Medications: Generic Name Dose Route Start Last Admin Trade Name Freq PRN Reason Stop Dose Admin Lipase/Protease/Amylase 1 each 06/19/21 19:20 Lipase 10,500/Protease 25,000/Amylase 43,750 (Units) Dr Cap FEEDTUBE PRN PRN For Clogged Feeding Tube Docusate Sodium 100 mg 06/20/21 10:00 06/21/21 09:12 Docusate Sodium 100 Mg/10 Ml Oral Liqd PO 100 mg BID JOLENE Administration Famotidine 10 mg 06/15/21 22:00 06/21/21 09:12 Famotidine 20 Mg/2 Ml Inj IV 10 mg BID JOLENE Administration Fentanyl 50 mcg 06/11/21 22:55 06/20/21 11:07 Fentanyl 100 Mcg/2 Ml Inj IV 50 mcg Q10MIN PRN Administration ANALGESIA Fentanyl 50 mcg 06/20/21 12:00 Fentanyl 100 Mcg/2 Ml Inj IV Q2HR PRN For CPOT greater than 3 Hydralazine HCl 10 mg 06/16/21 08:00 06/19/21 03:02 Hydralazine 20 Mg/1 Ml Inj IV 10 mg Q4H PRN Administration Hypertension Hydromorphone HCl 0.5 mg 06/11/21 20:42 Hydromorphone 1 Mg/1 Ml Inj IV Q3H PRN Pain , Severe (7-10) Fentanyl Citrate 2,000 mcg in 100 mls @ 5.466 mls/hr 06/11/21 23:00 06/21/21 08:12 Fentanyl Drip Premix IV 4 mcg/kg/hr TITR JOLNEE 21.863 mls/hr Administration Protocol 1 MCG/KG/HR Phenylephrine HCl 100 mg/ 100 mls @ 3 mls/hr 06/11/21 23:45 06/14/21 07:00 Sodium Chloride IV 0 mcg/min TITR JOLENE 0 mls/hr Titration Protocol 50 MCG/MIN NORepinephrine/NS 8 MG-250 ML 8 mg in 250 mls @ 3.75 mls/hr 06/12/21 02:00 06/20/21 12:13 Norepinephrine/Ns 8 Mg-250 Ml (Double Conc) IV 0 mcg/min TITRATE JOLENE 0 mls/hr Titration Protocol 2 MCG/MIN Propofol 1,000 mg in 100 mls @ 3.279 mls/hr 06/12/21 03:00 06/21/21 09:13 Diprivan 10 Mg/Ml IV 0 mcg/kg/min TITR JOLENE 0 mls/hr Titration Protocol 5 MCG/KG/MIN Piperacillin Sod/Tazobactam Sod 4.5 gm in 100 mls @ 200 mls/hr 06/19/21 12:00 06/21/21 05:43 Zosyn/Ns 4.5gm/100ml IV 200 mls/hr Q6HR JOLENE Administration Protocol Insulin Glargine 25 units 06/19/21 10:00 06/21/21 09:12 Insulin Glargine 100 Units/Ml SUB-Q 25 units BID JOLENE Administration Insulin Human Lispro 0 unit 06/12/21 12:00 06/21/21 05:44 Insulin Lispro 100 Unit/Ml SUB-Q 3 unit Q6HR JOLENE Administration Protocol Methylprednisolone Sodium Succinate 60 mg 06/21/21 06:00 06/21/21 05:44 Methylprednisolone Sod Succinate 125 Mg/2 Ml Inj IV 60 mg Q8HR JOLENE Administration Metoclopramide HCl 10 mg 06/11/21 20:42 Metoclopramide 10 Mg/2 Ml Inj IV Q6H PRN Nausea And Vomiting Ondansetron HCl 4 mg 06/11/21 20:42 Ondansetron 4 Mg/2 Ml Inj IV Q3H PRN Nausea And Vomiting Senna 17.6 mg 06/20/21 10:00 06/21/21 09:12 Sennosides Oral Liqd 8.8 Mg/5 Ml Oral Liqd PO 17.6 mg Q12HR JOLENE Administration Simple Syrup 15 ml 06/19/21 19:20 Simple Syrup 15 Ml FEEDTUBE PRN PRN Hypoglycemia Simple Syrup 30 ml 06/19/21 19:20 Simple Syrup 15 Ml FEEDTUBE PRN PRN Hypoglycemia Sodium Bicarbonate 325 mg 06/19/21 19:20 Sodium Bicarbonate 325 Mg Tab FEEDTUBE PRN PRN For Clogged Feeding Tube Sodium Chloride 10 ml 06/11/21 22:00 06/21/21 09:13 Sodium Chloride 0.9% 10 Ml Flush Syringe IV 10 ml BID JOLENE Administration Sodium Chloride 10 ml 06/11/21 20:42 Sodium Chloride 0.9% 10 Ml Flush Syringe IV PRN PRN LINE FLUSH Nutrition/Malnutrition Assess - Dietary Evaluation Nutrition/Malnutrition Findings: Nutrition Notes Start: 06/16/21 12:10 Freq: Status: Active Protocol: Document 06/20/21 12:06 CANDIDO (Rec: 06/20/21 12:45 CANDIDO [id number]) Nutrition Notes Need for Assessment generated from: MD Order Initial or Follow up Assessment Current Diagnosis Diabetes,Sepsis,Hypertension, Respiratory Failure Other Pertinent Diagnosis Jeremiah's Angina, (R) Pneumothorax, Coagulopathy, Cardiac Arrest, Gout... Current Diet TF-Promote @ 47 ml/hr (from D 06/20). Labs/Tests 06/20: Na 148, Cl 114.2, BUN 70, Crea 1.4, Glu 313, Ca 8.2, Mg 2.5. Pertinent Medications 06/20: Insulin, Propofol 1000 mg in 100 ml @ 9.838 ml/hr ( 260 Kcal), others nutritionally unremarkable. Height 5 ft 8 in Weight 109.316 kg [place] Body Weight (kg) 63.63 BMI 36.6 Weight change and time frame No body weight change reported . Weight Status Obese Subjective/Other Information RD consult for write/manage TF . PEG tube placed 06/19 well tolerated, order to advance to TF and d/c TPN. Pt continues on Mechanical Ventilation. Pt still waiting bed at [facility]. Percent of energy/protein needs met: Prescribed TF-Promote @ 47 ml/ hr provides for energy/protein needs (1,116 Kcal/70 g) during LOS; additionally, Propofol adds 260 Kcal. A total proportion of 100% Kcal and 91% AA. Burn Absent Trauma Absent GI Symptoms Other Difficulty In Swallowing,Chewing Food Allergy No Skin Integrity/Comment Surgical wounds. Current % PO Other Minimum of two criteria No #1 Nutrition Diagnosis Inadequate oral intake Comments: PEG tube placed 06/19 well tolerated, MD order to advance to TF and d/c TPN. Diagnosis Progress(for reassessment Continues documentation) Is patient on ventilator? Yes Is Patient Ambulatory and/or Out of Bed No REE-([facility]-confined to bed) [phone] Additional Notes Protein: 1.2-2 g/Kg IBW; 77- 127 g/day. Fluids: 1 ml/Kcal, or as per MD. Nutrition Intervention Nutrition Support: Start Promote @ 47 ml/hr. Flush: 75 ml water Q 4 hr, or as per MD. Kcal 1,116 Protein (gm) 70 Carbohydrates (gm) 145 Fat (gm) 29 Fluid (mL) 936 Fiber (gm) 0 % RDI: 81% Kcal; 91% AA. Goal #1 Provide at least 75% of energy /protein needs through Enteral Feeding during LOS. Goal #2 Maintain body weight within +/ -3% of admission body weight during LOS. Follow-Up By: 06/22/21 Additional Comments When pertinent, monitor TF tolerance and BM. <MIKE CORTEZ - Last Filed: 06/22/21 07:04> Assessment and Plan Assessment and plan: I saw and evaluated the patient. I agree with the findings and the plan of care as documented in the Nurse Practitioner's~note, with the following corrections and additions. Hospitalist Physical - Constitutional Vitals: Temp Pulse Resp BP Pulse Ox 100.1 F H 79 18 143/77 100 06/22/21 04:00 06/22/21 06:06 06/22/21 06:01 06/22/21 06:06 06/22/21 06:06 HEART Score - HEART Score Troponin: Troponin T < 0.010 ng/mL (0.00-0.029) 06/11/21 23:21 Results - Labs CBC & Chem 7: 06/22/21 04:30 06/22/21 04:30 Labs: Laboratory Last Values WBC 16.8 K/mm3 (4.5-11.0) H 06/22/21 04:30 RBC 2.93 M/mm3 (3.65-5.03) L 06/22/21 04:30 Hgb 7.4 gm/dl (10.1-14.3) L 06/22/21 04:30 Hct 23.9 % (30.3-42.9) L 06/22/21 04:30 MCV 82 fl (79-97) 06/22/21 04:30 MCH 25 pg (28-32) L 06/22/21 04:30 MCHC 31 % (30-34) 06/22/21 04:30 RDW 21.8 % (13.2-15.2) H 06/22/21 04:30 Plt Count 234 K/mm3 (140-440) 06/22/21 04:30 Lymph % (Auto) 3.5 % (13.4-35.0) L 06/21/21 04:42 [place] % (Auto) 11.7 % (0.0-7.3) H 06/21/21 04:42 Eos % (Auto) 0.0 % (0.0-4.3) 06/21/21 04:42 Baso % (Auto) 0.1 % (0.0-1.8) 06/21/21 04:42 Lymph # (Auto) 0.5 K/mm3 (1.2-5.4) L 06/21/21 04:42 [place] # (Auto) 1.8 K/mm3 (0.0-0.8) H 06/21/21 04:42 Eos # (Auto) 0.0 K/mm3 (0.0-0.4) 06/21/21 04:42 Baso # (Auto) 0.0 K/mm3 (0.0-0.1) 06/21/21 04:42 Add Manual Diff Complete 06/13/21 Unknown Total Counted 100 06/13/21 Unknown Seg Neutrophils % 84.7 % (40.0-70.0) H 06/21/21 04:42 Seg Neuts % (Manual) 88.0 % (40.0-70.0) H 06/13/21 Unknown Band Neutrophils % 2.0 % 06/13/21 Unknown Lymphocytes % (Manual) 4.0 % (13.4-35.0) L 06/13/21 Unknown Reactive Lymphs % (Man) 0 % 06/13/21 Unknown Monocytes % (Manual) 6.0 % (0.0-7.3) 06/13/21 Unknown Eosinophils % (Manual) 0 % (0.0-4.3) 06/13/21 Unknown Basophils % (Manual) 0 % (0.0-1.8) 06/13/21 Unknown Metamyelocytes % 0 % 06/13/21 Unknown Myelocytes % 0 % 06/13/21 Unknown Promyelocytes % 0 % 06/13/21 Unknown Blast Cells % 0 % 06/13/21 Unknown Nucleated RBC % Not Reportable 06/13/21 Unknown Seg Neutrophils # 12.8 K/mm3 (1.8-7.7) H 06/21/21 04:42 Seg Neutrophils # Man 19.8 K/mm3 (1.8-7.7) H 06/13/21 Unknown Band Neutrophils # 0.5 K/mm3 06/13/21 Unknown Lymphocytes # (Manual) 0.9 K/mm3 (1.2-5.4) L 06/13/21 Unknown Abs React Lymphs (Man) 0.0 K/mm3 06/13/21 Unknown Monocytes # (Manual) 1.4 K/mm3 (0.0-0.8) H 06/13/21 Unknown Eosinophils # (Manual) 0.0 K/mm3 (0.0-0.4) 06/13/21 Unknown Basophils # (Manual) 0.0 K/mm3 (0.0-0.1) 06/13/21 Unknown Metamyelocytes # 0.0 K/mm3 06/13/21 Unknown Myelocytes # 0.0 K/mm3 06/13/21 Unknown Promyelocytes # 0.0 K/mm3 06/13/21 Unknown Blast Cells # 0.0 K/mm3 06/13/21 Unknown WBC Morphology Not Reportable 06/13/21 Unknown Hypersegmented Neuts Not Reportable 06/13/21 Unknown Hyposegmented Neuts Not Reportable 06/13/21 Unknown Hypogranular Neuts Not Reportable 06/13/21 Unknown Smudge Cells Not Reportable 06/13/21 Unknown Toxic Granulation 2+ 06/13/21 Unknown Toxic Vacuolation Not Reportable 06/13/21 Unknown Dohle Bodies Not Reportable 06/13/21 Unknown Pelger-Huet Anomaly Not Reportable 06/13/21 Unknown Dennis Rods Not Reportable 06/13/21 Unknown Platelet Estimate Consistent w auto 06/13/21 Unknown Clumped Platelets Not Reportable 06/13/21 Unknown Plt Clumps, EDTA Not Reportable 06/13/21 Unknown Large Platelets Not Reportable 06/13/21 Unknown Giant Platelets Not Reportable 06/13/21 Unknown Platelet Satelliting Not Reportable 06/13/21 Unknown Plt Morphology Comment Not Reportable 06/13/21 Unknown RBC Morphology Not Reportable 06/13/21 Unknown Dimorphic RBCs Not Reportable 06/13/21 Unknown Polychromasia Few 06/13/21 Unknown Hypochromasia 2+ 06/13/21 Unknown Poikilocytosis Not Reportable 06/13/21 Unknown Anisocytosis 1+ 06/13/21 Unknown Microcytosis Not Reportable 06/13/21 Unknown Macrocytosis Not Reportable 06/13/21 Unknown Spherocytes Not Reportable 06/13/21 Unknown Pappenheimer Bodies Not Reportable 06/13/21 Unknown Sickle Cells Not Reportable 06/13/21 Unknown Target Cells Not Reportable 06/13/21 Unknown Tear Drop Cells Not Reportable 06/13/21 Unknown Ovalocytes Not Reportable 06/13/21 Unknown Stomatocytes Few 06/12/21 01:45 Helmet Cells Not Reportable 06/13/21 Unknown [place] Bodies Not Reportable 06/13/21 Unknown Burt Rings Not Reportable 06/13/21 Unknown [place] Cells Not Reportable 06/13/21 Unknown Bite Cells Not Reportable 06/13/21 Unknown Crenated Cell Not Reportable 06/13/21 Unknown Elliptocytes Not Reportable 06/13/21 Unknown Acanthocytes (Spur) Not Reportable 06/13/21 Unknown Rouleaux Not Reportable 06/13/21 Unknown Hemoglobin C Crystals Not Reportable 06/13/21 Unknown Schistocytes Not Reportable 06/13/21 Unknown Malaria parasites Not Reportable 06/13/21 Unknown Edin Bodies Not Reportable 06/13/21 Unknown Hem Pathologist Commnt No 06/13/21 Unknown PT 18.3 Sec. (12.2-14.9) H 06/20/21 04:33 INR 1.37 (0.87-1.13) H 06/20/21 04:33 APTT 26.4 Sec. (24.2-36.6) 06/13/21 Unknown Fibrinogen 546 mg/dl (211-480) H 06/13/21 Unknown D-Dimer 1244.63 ng/mlDDU (0-234) H 06/13/21 Unknown ABG pH 7.426 pH Units (7.350-7.450) 06/21/21 04:20 POC ABG pCO2 25.6 mmHg (32.0-48.0) L 06/13/21 04:31 ABG pCO2 35.1 mm Hg 06/21/21 04:20 POC ABG pO2 138.8 mmHg (83-108) H 06/13/21 04:31 ABG pO2 98.5 mm Hg (80.0-90.0) H 06/21/21 04:20 POC ABG HCO3 21.4 06/13/21 04:31 ABG HCO3 22.6 mmol/L (20.0-26.0) 06/21/21 04:20 ABG O2 Saturation 97.7 % (95.0-99.0) 06/21/21 04:20 ABG O2 Content 9.9 (0.0-44) 06/21/21 04:20 POC ABG Base Excess -0.7 06/13/21 04:31 ABG Base Excess -1.6 mmol/L (-2.0-3.0) 06/21/21 04:20 ABG Hemoglobin 7.2 gm/dl (12.0-16.0) L 06/21/21 04:20 ABG Oxyhemoglobin 98.1 (94-98) H 06/13/21 04:31 ABG Carboxyhemoglobin 1.7 % (0.0-5.0) 06/21/21 04:20 ABG Methemoglobin 0.5 % (0.0-1.5) 06/21/21 04:20 Oxyhemoglobin 95.5 % (95.0-99.0) 06/21/21 04:20 Carboxyhemoglobin 0.8 (0.5-1.5) 06/13/21 04:31 FiO2 30 % 06/21/21 04:20 FiO2 % 40.0 06/13/21 04:31 Sodium 151 mmol/L (137-145) H 06/22/21 04:30 Potassium 3.8 mmol/L (3.6-5.0) 06/22/21 04:30 Chloride 118.7 mmol/L (98-107) H 06/22/21 04:30 Carbon Dioxide 22 mmol/L (22-30) 06/22/21 04:30 Anion Gap 14 mmol/L 06/22/21 04:30 BUN 57 mg/dL (7-17) H 06/22/21 04:30 Creatinine 1.2 mg/dL (0.6-1.2) 06/22/21 04:30 Estimated GFR 53 ml/min 06/22/21 04:30 BUN/Creatinine Ratio 48 % 06/22/21 04:30 Glucose 238 mg/dL (65-100) H 06/22/21 04:30 POC Glucose 214 mg/dL (70-105) H 06/22/21 05:17 Lactic Acid 5.30 mmol/L (0.7-2.0) H* 06/13/21 15:45 Calcium 8.0 mg/dL (8.4-10.2) L 06/22/21 04:30 Phosphorus 2.60 mg/dL (2.5-4.5) 06/22/21 04:30 Magnesium 2.70 mg/dL (1.7-2.3) H 06/22/21 04:30 Total Bilirubin 0.40 mg/dL (0.1-1.2) 06/15/21 03:56 AST 64 units/L (5-40) H 06/15/21 03:56 ALT 106 units/L (7-56) H 06/15/21 03:56 Alkaline Phosphatase 55 units/L (35-129) 06/15/21 03:56 Troponin T < 0.010 ng/mL (0.00-0.029) 06/11/21 23:21 C-Reactive Protein 3.30 mg/dL (0.00-1.30) H 06/16/21 04:32 Total Protein 5.1 g/dL (6.3-8.2) L 06/15/21 03:56 Albumin 2.9 g/dL (3.9-5) L 06/15/21 03:56 Albumin/Globulin Ratio 1.3 % 06/15/21 03:56 Triglycerides 254 mg/dL (2-149) H 06/21/21 04:42 Urine Color Yellow (Yellow) 06/12/21 17:00 Urine Turbidity Clear (Clear) 06/12/21 17:00 Urine pH 5.0 (5.0-7.0) 06/12/21 17:00 Ur Specific [place] 1.035 (1.003-1.030) H 06/12/21 17:00 Urine Protein 30 mg/dl mg/dL (Negative) 06/12/21 17:00 Urine Glucose (UA) 50 mg/dL (Negative) 06/12/21 17:00 Urine Ketones Tr mg/dL (Negative) 06/12/21 17:00 Urine Blood Neg (Negative) 06/12/21 17:00 Urine Nitrite Neg (Negative) 06/12/21 17:00 Urine Bilirubin Neg (Negative) 06/12/21 17:00 Urine Urobilinogen < 2.0 mg/dL (<2.0) 06/12/21 17:00 Ur Leukocyte Esterase Neg (Negative) 06/12/21 17:00 Urine WBC (Auto) < 1.0 /HPF (0.0-6.0) 06/12/21 17:00 Urine RBC (Auto) < 1.0 /HPF (0.0-6.0) 06/12/21 17:00 Urine Creatinine 81.1 mg/dL (0.1-20.0) H 06/15/21 10:40 Urine Sodium 42 mmol/L 06/15/21 10:40 Coronavirus (PCR) Negative (Negative) 06/12/21 09:50 Blood Type O POSITIVE 06/11/21 19:20 Antibody Screen Negative 06/11/21 19:20 Crossmatch See Detail 06/11/21 19:20 Lujan/IV: Voiding Method Indwelling Catheter Active Medications - Current Medications Current Medications: Generic Name Dose Route Start Last Admin Trade Name Freq PRN Reason Stop Dose Admin Lipase/Protease/Amylase 1 each 06/19/21 19:20 Lipase 10,500/Protease 25,000/Amylase 43,750 (Units) Dr Cap FEEDTUBE PRN PRN For Clogged Feeding Tube Docusate Sodium 100 mg 06/20/21 10:00 06/21/21 21:17 Docusate Sodium 100 Mg/10 Ml Oral Liqd PO 100 mg BID JOLENE Administration Famotidine 10 mg 06/15/21 22:00 06/21/21 21:17 Famotidine 20 Mg/2 Ml Inj IV 10 mg BID JOLENE Administration Fentanyl 50 mcg 06/11/21 22:55 06/20/21 11:07 Fentanyl 100 Mcg/2 Ml Inj IV 50 mcg Q10MIN PRN Administration ANALGESIA Fentanyl 50 mcg 06/20/21 12:00 Fentanyl 100 Mcg/2 Ml Inj IV Q2HR PRN For CPOT greater than 3 Hydralazine HCl 10 mg 06/16/21 08:00 06/19/21 03:02 Hydralazine 20 Mg/1 Ml Inj IV 10 mg Q4H PRN Administration Hypertension Hydromorphone HCl 0.5 mg 06/11/21 20:42 Hydromorphone 1 Mg/1 Ml Inj IV Q3H PRN Pain , Severe (7-10) Fentanyl Citrate 2,000 mcg in 100 mls @ 5.466 mls/hr 06/11/21 23:00 06/22/21 06:44 Fentanyl Drip Premix IV 3 mcg/kg/hr TITR JOLENE 16.397 mls/hr Titration Protocol 1 MCG/KG/HR Phenylephrine HCl 100 mg/ 100 mls @ 3 mls/hr 06/11/21 23:45 06/14/21 07:00 Sodium Chloride IV 0 mcg/min TITR JOLENE 0 mls/hr Titration Protocol 50 MCG/MIN NORepinephrine/NS 8 MG-250 ML 8 mg in 250 mls @ 3.75 mls/hr 06/12/21 02:00 06/20/21 12:13 Norepinephrine/Ns 8 Mg-250 Ml (Double Conc) IV 0 mcg/min TITRATE JOLENE 0 mls/hr Titration Protocol 2 MCG/MIN Propofol 1,000 mg in 100 mls @ 3.279 mls/hr 06/12/21 03:00 06/21/21 09:13 Diprivan 10 Mg/Ml IV 0 mcg/kg/min TITR JOLENE 0 mls/hr Titration Protocol 5 MCG/KG/MIN Piperacillin Sod/Tazobactam Sod 3.375 gm in 50 mls @ 100 mls/hr 06/21/21 18:00 06/22/21 06:07 Zosyn/Ns 3.375gm/50ml IV 100 mls/hr Q6HR JOLENE Administration Insulin Glargine 25 units 06/19/21 10:00 06/21/21 21:17 Insulin Glargine 100 Units/Ml SUB-Q 25 units BID JOLENE Administration Insulin Human Lispro 0 unit 06/12/21 12:00 06/22/21 06:06 Insulin Lispro 100 Unit/Ml SUB-Q 4 unit Q6HR JOLENE Administration Protocol Labetalol HCl 10 mg 06/21/21 18:00 06/21/21 17:57 Labetalol 20 Mg/4 Ml Inj IV 10 mg Q4HR PRN Administration Hypertension Methylprednisolone Sodium Succinate 60 mg 06/21/21 06:00 06/22/21 06:07 Methylprednisolone Sod Succinate 125 Mg/2 Ml Inj IV 60 mg Q8HR JOLENE Administration Metoclopramide HCl 10 mg 06/11/21 20:42 Metoclopramide 10 Mg/2 Ml Inj IV Q6H PRN Nausea And Vomiting Ondansetron HCl 4 mg 06/11/21 20:42 Ondansetron 4 Mg/2 Ml Inj IV Q3H PRN Nausea And Vomiting Senna 17.6 mg 06/20/21 10:00 06/21/21 21:17 Sennosides Oral Liqd 8.8 Mg/5 Ml Oral Liqd PO 17.6 mg Q12HR JOLENE Administration Simple Syrup 15 ml 06/19/21 19:20 Simple Syrup 15 Ml FEEDTUBE PRN PRN Hypoglycemia Simple Syrup 30 ml 06/19/21 19:20 Simple Syrup 15 Ml FEEDTUBE PRN PRN Hypoglycemia Sodium Bicarbonate 325 mg 06/19/21 19:20 Sodium Bicarbonate 325 Mg Tab FEEDTUBE PRN PRN For Clogged Feeding Tube Sodium Chloride 10 ml 06/11/21 22:00 06/21/21 21:18 Sodium Chloride 0.9% 10 Ml Flush Syringe IV 10 ml BID JOLENE Administration Sodium Chloride 10 ml 06/11/21 20:42 Sodium Chloride 0.9% 10 Ml Flush Syringe IV PRN PRN LINE FLUSH Nutrition/Malnutrition Assess - Dietary Evaluation Nutrition/Malnutrition Findings: Nutrition Notes Start: 06/16/21 12:10 Freq: Status: Active Protocol: Document 06/21/21 14:18 [facility] (Rec: 06/21/21 14:29 [facility] [id number]) Nutrition Notes Initial or Follow up Brief Note Labs/Tests Na 151 BUN 75 Cr 1.6 BG 216 Mg 2.6 Height 5 ft 8 in Weight 109.316 kg [place] Body Weight (kg) 63.63 BMI 36.6 Subjective/Other Information BS labs remain elevated; current TF formula is not a low-CHO formula. Is patient on ventilator? Yes Is Patient Ambulatory and/or Out of Bed No REE-([facility]-confined to bed) [phone] Calculation Used for Recommendations 65-70% energy needs Additional Notes Energy needs: 1280-1379kcal/ day Pro needs 2g/kg IBW: 127g/day Fluid needs 1ml/kcal Nutrition Intervention Nutrition Support: Change TF formula to Vital AF 1.2 at 50ml/hr with 200ml water flush q4h. When hypernatermia resolved, provide 80ml water flush q4h. Kcal 1,440 Protein (gm) 90 Carbohydrates (gm) 133 Fat (gm) 65 Fluid (mL) 973 Fiber (gm) 6 Follow-Up By: 06/22/21 Additional Comments F/U: TF formula change/ tolerance, vent status, Na lab /water flushes
--- NOTE | 2021-06-21 14:17 | Progress Note ---
Assessment and Plan Cultures: 06/12/2021 blood cultures: no growth A/P: 76-year-old female with diabetes, hypertension, gout was admitted to the hospital on 06/11/2021 with swelling of the submandibular region, tongue and difficulty breathing, labs also revealed severe coagulopathy due to Coumadin. 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 Shock resolved. s/p tracheostomy and PEG tube placement 06/19/2021. #Acute respiratory failure: on the vent #Right-sided pneumothorax: s/p chest tube. #Diabetes mellitus, uncontrolled #Coagulopathy: Secondary to Coumadin. #Acute blood loss anemia Recs: -continue Zosyn -steroid taper per pulm/ICU -awaiting transfer to [place] for ENT maryellen Barros MD, [facility] O: [phone] F: [phone] Subjective Date of service: 06/21/21 Interval history: Afebrile. Remains on the vent via trach. Weaned off pressors. Off TPN. Objective - Exam Narrative Exam: Physical Exam: Constitutional: sedated, on the vent Head, Ears, Nose: Normocephalic, atraumatic. External ears, nose normal Eyes: Conjunctivae/corneas clear. No icterus. No ptosis. Oral: trach Cardiovascular: S1, S2 + Respiratory: AE reduced, right-sided chest tube. GI: Soft, bowel sounds +, PEG + Musculoskeletal: No pedal edema, no cyanosis. Skin: No rash or abscess Hem/Lymphatic: No palpable cervical or supraclavicular nodes. No lymphangitis Psych: no agitation Neurological: sedated, on the vent, exam limited - Constitutional Vitals: Vital Signs Temp Pulse Resp BP Pulse Ox 98.5 F 84 18 129/81 99 06/21/21 11:29 06/21/21 12:00 06/21/21 12:00 06/21/21 12:00 06/21/21 12:00 Temperature -Last 24 Hours Temperature 98.5 F Temperature 98.1 F Temperature 97.9 F Temperature 98.1 F Temperature 99.0 F Temperature 97.5 F - Labs CBC & Chem 7: 06/21/21 04:42 06/21/21 04:42 Labs: Abnormal lab results 06/20/21 06/20/21 06/20/21 Range/Units 15:56 18:20 23:11 WBC (4.5-11.0) K/mm3 RBC (3.65-5.03) M/mm3 Hgb 8.1 L (10.1-14.3) gm/dl Hct 25.5 L (30.3-42.9) % MCH (28-32) pg RDW (13.2-15.2) % Lymph % (Auto) (13.4-35.0) % [place] % (Auto) (0.0-7.3) % Lymph # (Auto) (1.2-5.4) K/mm3 [place] # (Auto) (0.0-0.8) K/mm3 Seg Neutrophils % (40.0-70.0) % Seg Neutrophils # (1.8-7.7) K/mm3 ABG pO2 (80.0-90.0) mm Hg ABG Hemoglobin (12.0-16.0) gm/dl Sodium (137-145) mmol/L Chloride (98-107) mmol/L Carbon Dioxide (22-30) mmol/L BUN (7-17) mg/dL Creatinine (0.6-1.2) mg/dL Glucose (65-100) mg/dL POC Glucose 293 H 206 H (70-105) mg/dL Calcium (8.4-10.2) mg/dL Magnesium (1.7-2.3) mg/dL Triglycerides (2-149) mg/dL 06/21/21 06/21/21 06/21/21 Range/Units 04:20 04:42 04:42 WBC 15.1 H (4.5-11.0) K/mm3 RBC 2.84 L (3.65-5.03) M/mm3 Hgb 7.3 L (10.1-14.3) gm/dl Hct 23.1 L (30.3-42.9) % MCH 26 L (28-32) pg RDW 21.5 H (13.2-15.2) % Lymph % (Auto) 3.5 L (13.4-35.0) % [place] % (Auto) 11.7 H (0.0-7.3) % Lymph # (Auto) 0.5 L (1.2-5.4) K/mm3 [place] # (Auto) 1.8 H (0.0-0.8) K/mm3 Seg Neutrophils % 84.7 H (40.0-70.0) % Seg Neutrophils # 12.8 H (1.8-7.7) K/mm3 ABG pO2 98.5 H (80.0-90.0) mm Hg ABG Hemoglobin 7.2 L (12.0-16.0) gm/dl Sodium 151 H (137-145) mmol/L Chloride 117.2 H (98-107) mmol/L Carbon Dioxide 21 L (22-30) mmol/L BUN 75 H (7-17) mg/dL Creatinine 1.6 H (0.6-1.2) mg/dL Glucose 216 H (65-100) mg/dL POC Glucose (70-105) mg/dL Calcium 7.9 L (8.4-10.2) mg/dL Magnesium 2.60 H (1.7-2.3) mg/dL Triglycerides 254 H (2-149) mg/dL 06/21/21 06/21/21 Range/Units 05:08 11:06 WBC (4.5-11.0) K/mm3 RBC (3.65-5.03) M/mm3 Hgb (10.1-14.3) gm/dl Hct (30.3-42.9) % MCH (28-32) pg RDW (13.2-15.2) % Lymph % (Auto) (13.4-35.0) % [place] % (Auto) (0.0-7.3) % Lymph # (Auto) (1.2-5.4) K/mm3 [place] # (Auto) (0.0-0.8) K/mm3 Seg Neutrophils % (40.0-70.0) % Seg Neutrophils # (1.8-7.7) K/mm3 ABG pO2 (80.0-90.0) mm Hg ABG Hemoglobin (12.0-16.0) gm/dl Sodium (137-145) mmol/L Chloride (98-107) mmol/L Carbon Dioxide (22-30) mmol/L BUN (7-17) mg/dL Creatinine (0.6-1.2) mg/dL Glucose (65-100) mg/dL POC Glucose 190 H 204 H (70-105) mg/dL Calcium (8.4-10.2) mg/dL Magnesium (1.7-2.3) mg/dL Triglycerides (2-149) mg/dL
[2021-06-21 15:45] LABS: Hemoglobin 7.1 gm/dl (10.1-14.3)
[2021-06-21] MEDS: PIPERACILLIN/TAZOBACTAM 3.375 3.375 GM/50 ML BAG IV SCH (17:01)
[2021-06-21 22:13] LABS: Hematocrit 22.1 % (30.3-42.9); Hemoglobin 7.2 gm/dl (10.1-14.3)
[2021-06-22] MEDS: INSULIN LISPRO 100 UNIT/ML SUB-Q SCH ×4 (00:07→17:47)
[2021-06-22] MEDS: PIPERACILLIN/TAZOBACTAM 3.375 3.375 GM/50 ML BAG IV SCH ×4 (00:16→17:47)
[2021-06-22] MEDS: FREE WATER PO SCH ×6 (02:44→21:11)
[2021-06-22] MEDS: fentaNYL DRIP Premix 2,000 MCG/100 ML BAG IV SCH ×5 (02:44→22:19)
--- NOTE | 2021-06-22 03:22 | XRay Report ---
XR chest 1V ap INDICATION / CLINICAL INFORMATION: F/U Rt. Pneumo. COMPARISON: 06/20/2021 FINDINGS: SUPPORT DEVICES: Tracheostomy device and right thoracostomy tube are in stable position. HEART /PULMONARY VASCULATURE: Unchanged. LUNGS / PLEURA: Extensive subcutaneous emphysema limits evaluation of the chest. Moderate right pneum othorax is slightly improved. Diffuse airspace disease appears unchanged. No discrete pneumothorax on the left. IMPRESSION: Slight improvement in moderate right pneumothorax with chest tube in place. Signer Name: Tommy Akers MD Signed: 06/22/2021 3:18 AM Workstation Name: [id number]
[2021-06-22 05:24] LABS: Hematocrit 23.9 % (30.3-42.9); Hemoglobin 7.4 gm/dl (10.1-14.3); Mean Corpuscular HGB Conc 31 % (30-34); Mean Corpuscular Volume 82 fl (79-97); Platelet Count 234 K/mm3 (140-440); Red Blood Count 2.93 M/mm3 (3.65-5.03)
[2021-06-22 05:37] LABS: Red Cell Distribution Width 21.8 % (13.2-15.2)
[2021-06-22] MEDS: methylPREDNISolone Sod Succinate 125 MG/2 ML INJ IV SCH ×3 (06:07→21:12)
--- NOTE | 2021-06-22 09:11 | Progress Note ---
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 Eyes open. Appears to be more responsive on vent [id number] 450 p6 fio2 30% mv 10.2 Objective Vital Signs - 12hr 06/21/21 06/21/21 06/21/21 21:15 21:31 21:38 Temperature Pulse Rate 84 81 83 Pulse Rate [ From Monitor] Respiratory 18 18 Rate Blood Pressure 142/75 142/75 142/75 O2 Sat by Pulse 99 99 99 Oximetry 06/21/21 06/21/21 06/21/21 21:45 22:00 22:15 Temperature Pulse Rate 79 77 78 Pulse Rate [ From Monitor] Respiratory 18 19 18 Rate Blood Pressure 142/75 138/84 138/84 O2 Sat by Pulse 99 99 99 Oximetry 06/21/21 06/21/21 06/21/21 22:31 22:45 22:51 Temperature Pulse Rate 80 78 83 Pulse Rate [ From Monitor] Respiratory 18 18 18 Rate Blood Pressure 138/84 138/84 138/84 O2 Sat by Pulse 99 99 99 Oximetry 06/21/21 06/21/21 06/21/21 23:00 23:15 23:31 Temperature Pulse Rate 79 79 81 Pulse Rate [ From Monitor] Respiratory 18 18 19 Rate Blood Pressure 139/69 139/69 139/69 O2 Sat by Pulse 99 98 98 Oximetry 06/21/21 06/21/21 06/22/21 23:45 23:59 00:00 Temperature 99.0 F Pulse Rate 81 82 Pulse Rate [ 85 From Monitor] Respiratory 18 18 Rate Blood Pressure 139/69 131/76 O2 Sat by Pulse 98 98 Oximetry 06/22/21 06/22/21 06/22/21 00:15 00:31 00:45 Temperature Pulse Rate 78 81 86 Pulse Rate [ From Monitor] Respiratory 18 18 18 Rate Blood Pressure 131/76 131/76 131/76 O2 Sat by Pulse 98 98 98 Oximetry 06/22/21 06/22/21 06/22/21 01:00 01:14 01:15 Temperature Pulse Rate 80 86 86 Pulse Rate [ From Monitor] Respiratory 18 18 Rate Blood Pressure 146/81 146/81 146/81 O2 Sat by Pulse 99 99 99 Oximetry 06/22/21 06/22/21 06/22/21 01:31 01:45 02:00 Temperature Pulse Rate 88 86 84 Pulse Rate [ From Monitor] Respiratory 19 21 18 Rate Blood Pressure 146/81 146/81 159/75 O2 Sat by Pulse 99 99 99 Oximetry 06/22/21 06/22/21 06/22/21 02:15 02:31 02:45 Temperature Pulse Rate 83 81 84 Pulse Rate [ From Monitor] Respiratory 18 18 18 Rate Blood Pressure 159/75 159/75 159/75 O2 Sat by Pulse 99 99 99 Oximetry 06/22/21 06/22/21 06/22/21 03:01 03:15 03:31 Temperature Pulse Rate 98 H 95 H 104 H Pulse Rate [ From Monitor] Respiratory 15 8 L 38 H Rate Blood Pressure 160/76 160/76 160/76 O2 Sat by Pulse 99 98 100 Oximetry 06/22/21 06/22/21 06/22/21 03:45 04:00 04:15 Temperature 100.1 F H Pulse Rate 93 H 91 H 86 Pulse Rate [ 85 From Monitor] Respiratory 15 14 17 Rate Blood Pressure 160/76 162/85 162/85 O2 Sat by Pulse 98 98 98 Oximetry 06/22/21 06/22/21 06/22/21 04:31 04:45 05:00 Temperature Pulse Rate 82 81 78 Pulse Rate [ From Monitor] Respiratory 18 35 H 18 Rate Blood Pressure 162/85 162/85 146/76 O2 Sat by Pulse 99 100 99 Oximetry 06/22/21 06/22/21 06/22/21 05:15 05:31 05:45 Temperature Pulse Rate 75 74 76 Pulse Rate [ From Monitor] Respiratory 18 18 17 Rate Blood Pressure 146/76 146/76 146/76 O2 Sat by Pulse 99 100 100 Oximetry 06/22/21 06/22/21 06/22/21 06:01 06:06 06:15 Temperature Pulse Rate 81 79 74 Pulse Rate [ From Monitor] Respiratory 18 18 Rate Blood Pressure 143/77 143/77 143/77 O2 Sat by Pulse 100 100 100 Oximetry 06/22/21 06/22/21 06/22/21 06:31 06:45 07:00 Temperature Pulse Rate 79 82 83 Pulse Rate [ From Monitor] Respiratory 18 16 14 Rate Blood Pressure 143/77 143/77 178/92 O2 Sat by Pulse 100 98 Oximetry 06/22/21 06/22/21 06/22/21 07:15 07:26 07:27 Temperature Pulse Rate 83 82 Pulse Rate [ 82 From Monitor] Respiratory 18 19 Rate Blood Pressure 178/92 O2 Sat by Pulse 100 100 Oximetry 06/22/21 06/22/21 06/22/21 07:31 07:45 08:00 Temperature Pulse Rate 81 80 104 H Pulse Rate [ From Monitor] Respiratory 18 18 17 Rate Blood Pressure 178/92 178/92 179/92 O2 Sat by Pulse 100 100 100 Oximetry 06/22/21 08:33 Temperature Pulse Rate 84 Pulse Rate [ From Monitor] Respiratory Rate Blood Pressure 188/74 O2 Sat by Pulse Oximetry Constitutional: alert, other (on vent trach in place) Eyes: non-icteric Neck: other (trach in place) Ascultation: Bilateral: clear Percussion: Bilateral: not dull Cardiovascular: regular rate and rhythm Gastrointestinal: normoactive bowel sounds, soft Integumentary: other (subq emphysema) Extremities: no edema, other (subq emphysema) Neurologic: normal mental status CBC and BMP: 06/22/21 04:30 06/22/21 04:30 ABG, PT/INR, D-dimer: ABG ABG pH 7.426 pH Units (7.350-7.450) 06/21/21 04:20 POC ABG pCO2 25.6 mmHg (32.0-48.0) L 06/13/21 04:31 ABG pCO2 35.1 mm Hg 06/21/21 04:20 POC ABG pO2 138.8 mmHg (83-108) H 06/13/21 04:31 ABG pO2 98.5 mm Hg (80.0-90.0) H 06/21/21 04:20 POC ABG HCO3 21.4 06/13/21 04:31 ABG O2 Saturation 97.7 % (95.0-99.0) 06/21/21 04:20 PT/INR, D-dimer PT 18.3 Sec. (12.2-14.9) H 06/20/21 04:33 INR 1.37 (0.87-1.13) H 06/20/21 04:33 D-Dimer 1244.63 ng/mlDDU (0-234) H 06/13/21 Unknown Abnormal lab findings: Abnormal Labs 06/11/21 06/11/21 06/11/21 15:23 15:23 19:20 WBC 12.0 H RBC Hgb Hct MCV 72 L MCH 21 L RDW 17.5 H Plt Count Lymph % (Auto) 12.9 L [place] % (Auto) 8.6 H Lymph # (Auto) [place] # (Auto) 1.0 H Seg Neutrophils % 77.4 H Seg Neuts % (Manual) Lymphocytes % (Manual) Monocytes % (Manual) Seg Neutrophils # 9.3 H Seg Neutrophils # Man Lymphocytes # (Manual) Monocytes # (Manual) PT INR APTT Fibrinogen D-Dimer ABG pH POC ABG pCO2 POC ABG pO2 ABG pO2 ABG HCO3 ABG O2 Saturation ABG Base Excess ABG Hemoglobin ABG Oxyhemoglobin Oxyhemoglobin Sodium Potassium Chloride Carbon Dioxide BUN Creatinine Glucose 144 H POC Glucose Lactic Acid Calcium Phosphorus Magnesium AST ALT Alkaline Phosphatase C-Reactive Protein Total Protein Albumin Triglycerides Ur Specific [place] Urine Creatinine Crossmatch See Detail 06/11/21 06/11/21 06/11/21 19:29 19:29 23:21 WBC 15.8 H RBC Hgb 9.4 L Hct MCV 72 L MCH 22 L RDW 17.4 H Plt Count Lymph % (Auto) 9.2 L [place] % (Auto) Lymph # (Auto) [place] # (Auto) Seg Neutrophils % 89.0 H Seg Neuts % (Manual) Lymphocytes % (Manual) Monocytes % (Manual) Seg Neutrophils # 14.0 H Seg Neutrophils # Man Lymphocytes # (Manual) Monocytes # (Manual) PT 72.9 H INR 8.18 H* APTT 71.7 H* Fibrinogen D-Dimer ABG pH POC ABG pCO2 POC ABG pO2 ABG pO2 ABG HCO3 ABG O2 Saturation ABG Base Excess ABG Hemoglobin ABG Oxyhemoglobin Oxyhemoglobin Sodium 149 H D Potassium Chloride 124.3 H Carbon Dioxide 8 L* D BUN Creatinine 0.3 L Glucose 628 H* POC Glucose Lactic Acid Calcium 2.4 L* D Phosphorus Magnesium AST ALT < 5 L Alkaline Phosphatase 19 L C-Reactive Protein Total Protein 1.6 L D Albumin 0.8 L Triglycerides Ur Specific [place] Urine Creatinine Crossmatch 06/11/21 06/11/21 06/11/21 23:21 23:22 23:42 WBC RBC Hgb Hct MCV MCH 27 L RDW 22.2 H Plt Count 131 L Lymph % (Auto) [place] % (Auto) Lymph # (Auto) [place] # (Auto) Seg Neutrophils % Seg Neuts % (Manual) Lymphocytes % (Manual) Monocytes % (Manual) Seg Neutrophils # Seg Neutrophils # Man Lymphocytes # (Manual) Monocytes # (Manual) PT 46.3 H INR 4.55 H APTT 54.8 H Fibrinogen D-Dimer ABG pH POC ABG pCO2 POC ABG pO2 325.9 H ABG pO2 ABG HCO3 ABG O2 Saturation ABG Base Excess ABG Hemoglobin 8.0 L ABG Oxyhemoglobin 99.0 H Oxyhemoglobin Sodium Potassium Chloride Carbon Dioxide BUN Creatinine Glucose POC Glucose Lactic Acid Calcium Phosphorus Magnesium AST ALT Alkaline Phosphatase C-Reactive Protein Total Protein Albumin Triglycerides Ur Specific [place] Urine Creatinine Crossmatch 06/12/21 06/12/21 06/12/21 01:45 01:45 01:45 WBC 21.6 H RBC 3.04 L Hgb 6.7 L D Hct 22.4 L D MCV 74 L MCH 22 L RDW 18.9 H Plt Count Lymph % (Auto) [place] % (Auto) Lymph # (Auto) [place] # (Auto) Seg Neutrophils % Seg Neuts % (Manual) 76.0 H Lymphocytes % (Manual) 2.0 L Monocytes % (Manual) 8.0 H Seg Neutrophils # Seg Neutrophils # Man 16.4 H Lymphocytes # (Manual) 0.4 L Monocytes # (Manual) 1.7 H PT 25.4 H INR 2.10 H APTT Fibrinogen D-Dimer ABG pH POC ABG pCO2 POC ABG pO2 ABG pO2 ABG HCO3 ABG O2 Saturation ABG Base Excess ABG Hemoglobin ABG Oxyhemoglobin Oxyhemoglobin Sodium Potassium 5.6 H D Chloride Carbon Dioxide 20 L D BUN Creatinine Glucose 368 H POC Glucose Lactic Acid Calcium 7.1 L D Phosphorus Magnesium AST ALT Alkaline Phosphatase C-Reactive Protein Total Protein 5.3 L D Albumin 3.1 L Triglycerides Ur Specific [place] Urine Creatinine Crossmatch 06/12/21 06/12/21 06/12/21 02:05 04:41 11:05 WBC 14.6 H RBC 3.52 L Hgb 8.5 L Hct 27.7 L MCV MCH 24 L RDW 20.9 H Plt Count Lymph % (Auto) [place] % (Auto) Lymph # (Auto) [place] # (Auto) Seg Neutrophils % Seg Neuts % (Manual) Lymphocytes % (Manual) Monocytes % (Manual) Seg Neutrophils # Seg Neutrophils # Man Lymphocytes # (Manual) Monocytes # (Manual) PT INR APTT Fibrinogen D-Dimer ABG pH POC ABG pCO2 POC ABG pO2 224.6 H ABG pO2 ABG HCO3 ABG O2 Saturation ABG Base Excess ABG Hemoglobin 7.3 L ABG Oxyhemoglobin 98.7 H Oxyhemoglobin Sodium Potassium Chloride Carbon Dioxide BUN Creatinine Glucose POC Glucose 308 H Lactic Acid Calcium Phosphorus Magnesium AST ALT Alkaline Phosphatase C-Reactive Protein Total Protein Albumin Triglycerides Ur Specific [place] Urine Creatinine Crossmatch 06/12/21 06/12/21 06/12/21 11:05 11:05 12:18 WBC RBC Hgb Hct MCV MCH RDW Plt Count Lymph % (Auto) [place] % (Auto) Lymph # (Auto) [place] # (Auto) Seg Neutrophils % Seg Neuts % (Manual) Lymphocytes % (Manual) Monocytes % (Manual) Seg Neutrophils # Seg Neutrophils # Man Lymphocytes # (Manual) Monocytes # (Manual) PT 16.8 H INR 1.23 H APTT Fibrinogen D-Dimer ABG pH POC ABG pCO2 POC ABG pO2 ABG pO2 ABG HCO3 ABG O2 Saturation ABG Base Excess ABG Hemoglobin ABG Oxyhemoglobin Oxyhemoglobin Sodium Potassium Chloride Carbon Dioxide BUN 24 H Creatinine Glucose 324 H POC Glucose 281 H Lactic Acid Calcium 7.5 L Phosphorus Magnesium AST 70 H ALT 57 H Alkaline Phosphatase C-Reactive Protein Total Protein 6.0 L Albumin 3.6 L Triglycerides Ur Specific [place] Urine Creatinine Crossmatch 06/12/21 06/12/21 06/12/21 17:00 17:00 17:00 WBC RBC Hgb 7.5 L Hct 24.0 L MCV MCH RDW Plt Count Lymph % (Auto) [place] % (Auto) Lymph # (Auto) [place] # (Auto) Seg Neutrophils % Seg Neuts % (Manual) Lymphocytes % (Manual) Monocytes % (Manual) Seg Neutrophils # Seg Neutrophils # Man Lymphocytes # (Manual) Monocytes # (Manual) PT 16.0 H INR 1.16 H APTT Fibrinogen D-Dimer ABG pH POC ABG pCO2 POC ABG pO2 ABG pO2 ABG HCO3 ABG O2 Saturation ABG Base Excess ABG Hemoglobin ABG Oxyhemoglobin Oxyhemoglobin Sodium Potassium Chloride Carbon Dioxide BUN Creatinine Glucose POC Glucose Lactic Acid Calcium Phosphorus Magnesium AST ALT Alkaline Phosphatase C-Reactive Protein Total Protein Albumin Triglycerides Ur Specific [place] 1.035 H Urine Creatinine Crossmatch 06/12/21 06/12/21 06/12/21 18:06 23:00 23:05 WBC RBC Hgb 7.6 L Hct 23.5 L MCV MCH RDW Plt Count Lymph % (Auto) [place] % (Auto) Lymph # (Auto) [place] # (Auto) Seg Neutrophils % Seg Neuts % (Manual) Lymphocytes % (Manual) Monocytes % (Manual) Seg Neutrophils # Seg Neutrophils # Man Lymphocytes # (Manual) Monocytes # (Manual) PT INR APTT Fibrinogen D-Dimer ABG pH POC ABG pCO2 POC ABG pO2 ABG pO2 ABG HCO3 ABG O2 Saturation ABG Base Excess ABG Hemoglobin ABG Oxyhemoglobin Oxyhemoglobin Sodium Potassium Chloride Carbon Dioxide BUN Creatinine Glucose POC Glucose 257 H 300 H Lactic Acid Calcium Phosphorus Magnesium AST ALT Alkaline Phosphatase C-Reactive Protein Total Protein Albumin Triglycerides Ur Specific [place] Urine Creatinine Crossmatch 06/13/21 06/13/21 06/13/21 04:31 05:19 07:30 WBC RBC Hgb 6.8 L Hct 21.7 L MCV MCH RDW Plt Count Lymph % (Auto) [place] % (Auto) Lymph # (Auto) [place] # (Auto) Seg Neutrophils % Seg Neuts % (Manual) Lymphocytes % (Manual) Monocytes % (Manual) Seg Neutrophils # Seg Neutrophils # Man Lymphocytes # (Manual) Monocytes # (Manual) PT INR APTT Fibrinogen D-Dimer ABG pH 7.541 H POC ABG pCO2 25.6 L POC ABG pO2 138.8 H ABG pO2 ABG HCO3 ABG O2 Saturation ABG Base Excess ABG Hemoglobin 7.3 L ABG Oxyhemoglobin 98.1 H Oxyhemoglobin Sodium Potassium Chloride Carbon Dioxide BUN Creatinine Glucose POC Glucose 286 H Lactic Acid Calcium Phosphorus Magnesium AST ALT Alkaline Phosphatase C-Reactive Protein Total Protein Albumin Triglycerides Ur Specific [place] Urine Creatinine Crossmatch 06/13/21 06/13/21 06/13/21 07:30 12:04 14:50 WBC RBC Hgb Hct MCV MCH RDW Plt Count Lymph % (Auto) [place] % (Auto) Lymph # (Auto) [place] # (Auto) Seg Neutrophils % Seg Neuts % (Manual) Lymphocytes % (Manual) Monocytes % (Manual) Seg Neutrophils # Seg Neutrophils # Man Lymphocytes # (Manual) Monocytes # (Manual) PT INR APTT Fibrinogen D-Dimer ABG pH 7.039 L* 7.182 L* POC ABG pCO2 POC ABG pO2 ABG pO2 63.1 L ABG HCO3 17.4 L ABG O2 Saturation 73.4 L ABG Base Excess -12.6 L -7.1 L ABG Hemoglobin 7.7 L 6.9 L ABG Oxyhemoglobin Oxyhemoglobin 71.8 L 93.5 L Sodium Potassium Chloride 108.9 H Carbon Dioxide BUN 28 H Creatinine Glucose 293 H POC Glucose Lactic Acid Calcium 7.2 L Phosphorus Magnesium AST 106 H ALT 92 H Alkaline Phosphatase C-Reactive Protein Total Protein 5.6 L Albumin 3.3 L Triglycerides Ur Specific [place] Urine Creatinine Crossmatch 06/13/21 06/13/21 06/13/21 14:54 15:45 17:34 WBC RBC Hgb Hct MCV MCH RDW Plt Count Lymph % (Auto) [place] % (Auto) Lymph # (Auto) [place] # (Auto) Seg Neutrophils % Seg Neuts % (Manual) Lymphocytes % (Manual) Monocytes % (Manual) Seg Neutrophils # Seg Neutrophils # Man Lymphocytes # (Manual) Monocytes # (Manual) PT INR APTT Fibrinogen D-Dimer ABG pH POC ABG pCO2 POC ABG pO2 ABG pO2 178.4 H ABG HCO3 ABG O2 Saturation 99.1 H ABG Base Excess ABG Hemoglobin 8.0 L ABG Oxyhemoglobin Oxyhemoglobin Sodium Potassium Chloride 107.3 H Carbon Dioxide 19 L BUN 33 H Creatinine 1.5 H Glucose 379 H POC Glucose Lactic Acid 5.30 H* Calcium 6.8 L Phosphorus Magnesium AST ALT Alkaline Phosphatase C-Reactive Protein Total Protein Albumin Triglycerides Ur Specific [place] Urine Creatinine Crossmatch 06/13/21 06/13/21 06/13/21 17:40 23:29 Unknown WBC 22.5 H RBC 3.16 L Hgb 8.0 L Hct 26.0 L MCV MCH 26 L RDW 21.4 H Plt Count Lymph % (Auto) [place] % (Auto) Lymph # (Auto) [place] # (Auto) Seg Neutrophils % Seg Neuts % (Manual) 88.0 H Lymphocytes % (Manual) 4.0 L Monocytes % (Manual) Seg Neutrophils # Seg Neutrophils # Man 19.8 H Lymphocytes # (Manual) 0.9 L Monocytes # (Manual) 1.4 H PT INR APTT Fibrinogen D-Dimer ABG pH POC ABG pCO2 POC ABG pO2 ABG pO2 ABG HCO3 ABG O2 Saturation ABG Base Excess ABG Hemoglobin ABG Oxyhemoglobin Oxyhemoglobin Sodium Potassium Chloride Carbon Dioxide BUN Creatinine Glucose POC Glucose 294 H 288 H Lactic Acid Calcium Phosphorus Magnesium AST ALT Alkaline Phosphatase C-Reactive Protein Total Protein Albumin Triglycerides Ur Specific [place] Urine Creatinine Crossmatch 06/13/21 06/14/21 06/14/21 Unknown 05:39 06:15 WBC RBC 2.93 L Hgb 7.2 L Hct 23.2 L MCV MCH 25 L RDW 21.2 H Plt Count Lymph % (Auto) [place] % (Auto) Lymph # (Auto) [place] # (Auto) Seg Neutrophils % Seg Neuts % (Manual) Lymphocytes % (Manual) Monocytes % (Manual) Seg Neutrophils # Seg Neutrophils # Man Lymphocytes # (Manual) Monocytes # (Manual) PT 17.6 H INR 1.31 H APTT Fibrinogen 546 H D-Dimer 1244.63 H ABG pH POC ABG pCO2 POC ABG pO2 ABG pO2 ABG HCO3 ABG O2 Saturation ABG Base Excess ABG Hemoglobin ABG Oxyhemoglobin Oxyhemoglobin Sodium Potassium Chloride Carbon Dioxide BUN Creatinine Glucose POC Glucose 246 H Lactic Acid Calcium Phosphorus Magnesium AST ALT Alkaline Phosphatase C-Reactive Protein Total Protein Albumin Triglycerides Ur Specific [place] Urine Creatinine Crossmatch 06/14/21 06/14/21 06/14/21 06:15 06:15 09:13 WBC RBC Hgb Hct MCV MCH RDW Plt Count Lymph % (Auto) [place] % (Auto) Lymph # (Auto) [place] # (Auto) Seg Neutrophils % Seg Neuts % (Manual) Lymphocytes % (Manual) Monocytes % (Manual) Seg Neutrophils # Seg Neutrophils # Man Lymphocytes # (Manual) Monocytes # (Manual) PT INR APTT Fibrinogen D-Dimer ABG pH POC ABG pCO2 POC ABG pO2 ABG pO2 183.0 H ABG HCO3 ABG O2 Saturation 99.2 H ABG Base Excess ABG Hemoglobin 6.6 L ABG Oxyhemoglobin Oxyhemoglobin Sodium 147 H Potassium Chloride 112.5 H Carbon Dioxide 21 L BUN 36 H Creatinine 1.4 H Glucose 281 H POC Glucose Lactic Acid Calcium 6.9 L Phosphorus Magnesium AST ALT Alkaline Phosphatase C-Reactive Protein Total Protein Albumin Triglycerides 189 H Ur Specific [place] Urine Creatinine Crossmatch 06/14/21 06/14/21 06/14/21 10:45 12:16 13:30 WBC RBC Hgb 7.1 L Hct 22.3 L MCV MCH RDW Plt Count Lymph % (Auto) [place] % (Auto) Lymph # (Auto) [place] # (Auto) Seg Neutrophils % Seg Neuts % (Manual) Lymphocytes % (Manual) Monocytes % (Manual) Seg Neutrophils # Seg Neutrophils # Man Lymphocytes # (Manual) Monocytes # (Manual) PT INR APTT Fibrinogen D-Dimer ABG pH 7.205 L POC ABG pCO2 POC ABG pO2 ABG pO2 261.3 H ABG HCO3 ABG O2 Saturation 99.4 H ABG Base Excess -7.2 L ABG Hemoglobin 7.6 L ABG Oxyhemoglobin Oxyhemoglobin Sodium Potassium Chloride Carbon Dioxide BUN Creatinine Glucose POC Glucose 174 H Lactic Acid Calcium Phosphorus Magnesium AST ALT Alkaline Phosphatase C-Reactive Protein Total Protein Albumin Triglycerides Ur Specific [place] Urine Creatinine Crossmatch 06/14/21 06/14/21 06/15/21 17:40 18:43 00:06 WBC RBC Hgb Hct MCV MCH RDW Plt Count Lymph % (Auto) [place] % (Auto) Lymph # (Auto) [place] # (Auto) Seg Neutrophils % Seg Neuts % (Manual) Lymphocytes % (Manual) Monocytes % (Manual) Seg Neutrophils # Seg Neutrophils # Man Lymphocytes # (Manual) Monocytes # (Manual) PT INR APTT Fibrinogen D-Dimer ABG pH 7.292 L POC ABG pCO2 POC ABG pO2 ABG pO2 78.8 L ABG HCO3 ABG O2 Saturation ABG Base Excess -5.0 L ABG Hemoglobin 9.1 L ABG Oxyhemoglobin Oxyhemoglobin 93.7 L Sodium Potassium Chloride Carbon Dioxide BUN Creatinine Glucose POC Glucose 182 H 144 H Lactic Acid Calcium Phosphorus Magnesium AST ALT Alkaline Phosphatase C-Reactive Protein Total Protein Albumin Triglycerides Ur Specific [place] Urine Creatinine Crossmatch 06/15/21 06/15/21 06/15/21 03:55 03:56 10:40 WBC RBC Hgb 8.4 L Hct 25.8 L MCV MCH RDW Plt Count Lymph % (Auto) [place] % (Auto) Lymph # (Auto) [place] # (Auto) Seg Neutrophils % Seg Neuts % (Manual) Lymphocytes % (Manual) Monocytes % (Manual) Seg Neutrophils # Seg Neutrophils # Man Lymphocytes # (Manual) Monocytes # (Manual) PT INR APTT Fibrinogen D-Dimer ABG pH POC ABG pCO2 POC ABG pO2 ABG pO2 ABG HCO3 ABG O2 Saturation ABG Base Excess ABG Hemoglobin ABG Oxyhemoglobin Oxyhemoglobin Sodium 147 H Potassium Chloride 112.2 H Carbon Dioxide 21 L BUN 47 H Creatinine 1.9 H Glucose 272 H POC Glucose Lactic Acid Calcium 7.3 L Phosphorus Magnesium AST 64 H ALT 106 H Alkaline Phosphatase C-Reactive Protein Total Protein 5.1 L Albumin 2.9 L Triglycerides Ur Specific [place] Urine Creatinine 81.1 H Crossmatch 06/15/21 06/15/21 06/15/21 11:46 17:16 23:17 WBC RBC Hgb Hct MCV MCH RDW Plt Count Lymph % (Auto) [place] % (Auto) Lymph # (Auto) [place] # (Auto) Seg Neutrophils % Seg Neuts % (Manual) Lymphocytes % (Manual) Monocytes % (Manual) Seg Neutrophils # Seg Neutrophils # Man Lymphocytes # (Manual) Monocytes # (Manual) PT INR APTT Fibrinogen D-Dimer ABG pH POC ABG pCO2 POC ABG pO2 ABG pO2 ABG HCO3 ABG O2 Saturation ABG Base Excess ABG Hemoglobin ABG Oxyhemoglobin Oxyhemoglobin Sodium Potassium Chloride Carbon Dioxide BUN Creatinine Glucose POC Glucose 271 H 268 H 264 H Lactic Acid Calcium Phosphorus Magnesium AST ALT Alkaline Phosphatase C-Reactive Protein Total Protein Albumin Triglycerides Ur Specific [place] Urine Creatinine Crossmatch 06/15/21 06/15/21 06/16/21 Unknown Unknown 04:32 WBC RBC 3.21 L 3.16 L Hgb 8.4 L 8.2 L Hct 26.1 L 25.4 L MCV MCH 26 L 26 L RDW 21.3 H 21.2 H Plt Count 105 L 118 L Lymph % (Auto) [place] % (Auto) Lymph # (Auto) [place] # (Auto) Seg Neutrophils % Seg Neuts % (Manual) Lymphocytes % (Manual) Monocytes % (Manual) Seg Neutrophils # Seg Neutrophils # Man Lymphocytes # (Manual) Monocytes # (Manual) PT INR APTT Fibrinogen D-Dimer ABG pH 7.465 H POC ABG pCO2 POC ABG pO2 ABG pO2 114.1 H ABG HCO3 ABG O2 Saturation ABG Base Excess ABG Hemoglobin 8.4 L ABG Oxyhemoglobin Oxyhemoglobin Sodium Potassium Chloride Carbon Dioxide BUN Creatinine Glucose POC Glucose Lactic Acid Calcium Phosphorus Magnesium AST ALT Alkaline Phosphatase C-Reactive Protein Total Protein Albumin Triglycerides Ur Specific [place] Urine Creatinine Crossmatch 06/16/21 06/16/21 06/16/21 04:32 04:32 05:08 WBC RBC Hgb Hct MCV MCH RDW Plt Count Lymph % (Auto) [place] % (Auto) Lymph # (Auto) [place] # (Auto) Seg Neutrophils % Seg Neuts % (Manual) Lymphocytes % (Manual) Monocytes % (Manual) Seg Neutrophils # Seg Neutrophils # Man Lymphocytes # (Manual) Monocytes # (Manual) PT INR APTT Fibrinogen D-Dimer ABG pH POC ABG pCO2 POC ABG pO2 ABG pO2 ABG HCO3 ABG O2 Saturation ABG Base Excess ABG Hemoglobin ABG Oxyhemoglobin Oxyhemoglobin Sodium 148 H Potassium 3.3 L Chloride 115.1 H Carbon Dioxide 21 L BUN 54 H Creatinine 1.6 H Glucose 367 H POC Glucose 356 H Lactic Acid Calcium 7.4 L Phosphorus Magnesium AST ALT Alkaline Phosphatase C-Reactive Protein 3.30 H Total Protein Albumin Triglycerides Ur Specific [place] Urine Creatinine Crossmatch 06/16/21 06/16/21 06/16/21 05:30 11:46 17:03 WBC RBC Hgb Hct MCV MCH RDW Plt Count Lymph % (Auto) [place] % (Auto) Lymph # (Auto) [place] # (Auto) Seg Neutrophils % Seg Neuts % (Manual) Lymphocytes % (Manual) Monocytes % (Manual) Seg Neutrophils # Seg Neutrophils # Man Lymphocytes # (Manual) Monocytes # (Manual) PT INR APTT Fibrinogen D-Dimer ABG pH 7.475 H POC ABG pCO2 POC ABG pO2 ABG pO2 171.8 H ABG HCO3 ABG O2 Saturation 99.1 H ABG Base Excess ABG Hemoglobin 11.7 L ABG Oxyhemoglobin Oxyhemoglobin Sodium Potassium Chloride Carbon Dioxide BUN Creatinine Glucose POC Glucose 309 H 345 H Lactic Acid Calcium Phosphorus Magnesium AST ALT Alkaline Phosphatase C-Reactive Protein Total Protein Albumin Triglycerides Ur Specific [place] Urine Creatinine Crossmatch 06/16/21 06/16/21 06/17/21 20:18 23:22 04:50 WBC RBC Hgb Hct MCV MCH RDW Plt Count Lymph % (Auto) [place] % (Auto) Lymph # (Auto) [place] # (Auto) Seg Neutrophils % Seg Neuts % (Manual) Lymphocytes % (Manual) Monocytes % (Manual) Seg Neutrophils # Seg Neutrophils # Man Lymphocytes # (Manual) Monocytes # (Manual) PT INR APTT Fibrinogen D-Dimer ABG pH 7.479 H POC ABG pCO2 POC ABG pO2 ABG pO2 143.1 H ABG HCO3 ABG O2 Saturation ABG Base Excess ABG Hemoglobin 10.0 L ABG Oxyhemoglobin Oxyhemoglobin Sodium Potassium Chloride Carbon Dioxide BUN Creatinine Glucose POC Glucose 325 H 315 H Lactic Acid Calcium Phosphorus Magnesium AST ALT Alkaline Phosphatase C-Reactive Protein Total Protein Albumin Triglycerides Ur Specific [place] Urine Creatinine Crossmatch 06/17/21 06/17/21 06/17/21 05:18 05:30 05:30 WBC RBC 3.17 L Hgb 8.2 L Hct 25.5 L MCV MCH 26 L RDW 21.2 H Plt Count 128 L Lymph % (Auto) [place] % (Auto) Lymph # (Auto) [place] # (Auto) Seg Neutrophils % Seg Neuts % (Manual) Lymphocytes % (Manual) Monocytes % (Manual) Seg Neutrophils # Seg Neutrophils # Man Lymphocytes # (Manual) Monocytes # (Manual) PT INR APTT Fibrinogen D-Dimer ABG pH POC ABG pCO2 POC ABG pO2 ABG pO2 ABG HCO3 ABG O2 Saturation ABG Base Excess ABG Hemoglobin ABG Oxyhemoglobin Oxyhemoglobin Sodium 148 H Potassium Chloride 113.7 H Carbon Dioxide 20 L BUN 57 H Creatinine 1.4 H Glucose 351 H POC Glucose 324 H Lactic Acid Calcium 8.0 L Phosphorus 2.30 L Magnesium AST ALT Alkaline Phosphatase C-Reactive Protein Total Protein Albumin Triglycerides Ur Specific [place] Urine Creatinine Crossmatch 06/17/21 06/17/21 06/17/21 11:49 17:43 21:42 WBC RBC Hgb Hct MCV MCH RDW Plt Count Lymph % (Auto) [place] % (Auto) Lymph # (Auto) [place] # (Auto) Seg Neutrophils % Seg Neuts % (Manual) Lymphocytes % (Manual) Monocytes % (Manual) Seg Neutrophils # Seg Neutrophils # Man Lymphocytes # (Manual) Monocytes # (Manual) PT INR APTT Fibrinogen D-Dimer ABG pH POC ABG pCO2 POC ABG pO2 ABG pO2 ABG HCO3 ABG O2 Saturation ABG Base Excess ABG Hemoglobin ABG Oxyhemoglobin Oxyhemoglobin Sodium Potassium Chloride Carbon Dioxide BUN Creatinine Glucose POC Glucose 305 H 307 H 286 H Lactic Acid Calcium Phosphorus Magnesium AST ALT Alkaline Phosphatase C-Reactive Protein Total Protein Albumin Triglycerides Ur Specific [place] Urine Creatinine Crossmatch 06/17/21 06/18/21 06/18/21 23:59 04:20 04:37 WBC RBC 3.53 L Hgb 9.1 L Hct 28.7 L MCV MCH 26 L RDW 21.3 H Plt Count Lymph % (Auto) [place] % (Auto) Lymph # (Auto) [place] # (Auto) Seg Neutrophils % Seg Neuts % (Manual) Lymphocytes % (Manual) Monocytes % (Manual) Seg Neutrophils # Seg Neutrophils # Man Lymphocytes # (Manual) Monocytes # (Manual) PT INR APTT Fibrinogen D-Dimer ABG pH 7.495 H POC ABG pCO2 POC ABG pO2 ABG pO2 108.3 H ABG HCO3 ABG O2 Saturation ABG Base Excess -2.1 L ABG Hemoglobin 10.0 L ABG Oxyhemoglobin Oxyhemoglobin Sodium Potassium Chloride Carbon Dioxide BUN Creatinine Glucose POC Glucose 264 H Lactic Acid Calcium Phosphorus Magnesium AST ALT Alkaline Phosphatase C-Reactive Protein Total Protein Albumin Triglycerides Ur Specific [place] Urine Creatinine Crossmatch 06/18/21 06/18/21 06/18/21 04:37 05:32 11:21 WBC RBC Hgb Hct MCV MCH RDW Plt Count Lymph % (Auto) [place] % (Auto) Lymph # (Auto) [place] # (Auto) Seg Neutrophils % Seg Neuts % (Manual) Lymphocytes % (Manual) Monocytes % (Manual) Seg Neutrophils # Seg Neutrophils # Man Lymphocytes # (Manual) Monocytes # (Manual) PT INR APTT Fibrinogen D-Dimer ABG pH POC ABG pCO2 POC ABG pO2 ABG pO2 ABG HCO3 ABG O2 Saturation ABG Base Excess ABG Hemoglobin ABG Oxyhemoglobin Oxyhemoglobin Sodium 148 H Potassium Chloride 114.7 H Carbon Dioxide BUN 59 H Creatinine 1.3 H Glucose 329 H POC Glucose 293 H 291 H Lactic Acid Calcium 8.1 L Phosphorus Magnesium AST ALT Alkaline Phosphatase C-Reactive Protein Total Protein Albumin Triglycerides Ur Specific [place] Urine Creatinine Crossmatch 06/18/21 06/18/21 06/19/21 18:21 21:46 00:15 WBC RBC Hgb Hct MCV MCH RDW Plt Count Lymph % (Auto) [place] % (Auto) Lymph # (Auto) [place] # (Auto) Seg Neutrophils % Seg Neuts % (Manual) Lymphocytes % (Manual) Monocytes % (Manual) Seg Neutrophils # Seg Neutrophils # Man Lymphocytes # (Manual) Monocytes # (Manual) PT INR APTT Fibrinogen D-Dimer ABG pH POC ABG pCO2 POC ABG pO2 ABG pO2 ABG HCO3 ABG O2 Saturation ABG Base Excess ABG Hemoglobin ABG Oxyhemoglobin Oxyhemoglobin Sodium Potassium Chloride Carbon Dioxide BUN Creatinine Glucose POC Glucose 239 H 259 H 310 H Lactic Acid Calcium Phosphorus Magnesium AST ALT Alkaline Phosphatase C-Reactive Protein Total Protein Albumin Triglycerides Ur Specific [place] Urine Creatinine Crossmatch 06/19/21 06/19/21 06/19/21 04:00 04:00 04:50 WBC RBC 3.64 L Hgb 9.1 L Hct 29.1 L MCV MCH 25 L RDW 21.5 H Plt Count Lymph % (Auto) [place] % (Auto) Lymph # (Auto) [place] # (Auto) Seg Neutrophils % Seg Neuts % (Manual) Lymphocytes % (Manual) Monocytes % (Manual) Seg Neutrophils # Seg Neutrophils # Man Lymphocytes # (Manual) Monocytes # (Manual) PT INR APTT Fibrinogen D-Dimer ABG pH POC ABG pCO2 POC ABG pO2 ABG pO2 78.9 L ABG HCO3 ABG O2 Saturation ABG Base Excess -3.2 L ABG Hemoglobin 7.6 L ABG Oxyhemoglobin Oxyhemoglobin Sodium 148 H Potassium Chloride 114.9 H Carbon Dioxide 19 L BUN 59 H Creatinine Glucose 345 H POC Glucose Lactic Acid Calcium 8.1 L Phosphorus 4.60 H D Magnesium 2.40 H AST ALT Alkaline Phosphatase C-Reactive Protein Total Protein Albumin Triglycerides Ur Specific [place] Urine Creatinine Crossmatch 06/19/21 06/19/21 06/19/21 06:28 11:11 17:20 WBC RBC Hgb Hct MCV MCH RDW Plt Count Lymph % (Auto) [place] % (Auto) Lymph # (Auto) [place] # (Auto) Seg Neutrophils % Seg Neuts % (Manual) Lymphocytes % (Manual) Monocytes % (Manual) Seg Neutrophils # Seg Neutrophils # Man Lymphocytes # (Manual) Monocytes # (Manual) PT 29.7 H INR 2.57 H APTT Fibrinogen D-Dimer ABG pH POC ABG pCO2 POC ABG pO2 ABG pO2 ABG HCO3 ABG O2 Saturation ABG Base Excess ABG Hemoglobin ABG Oxyhemoglobin Oxyhemoglobin Sodium Potassium Chloride Carbon Dioxide BUN Creatinine Glucose POC Glucose 279 H 275 H Lactic Acid Calcium Phosphorus Magnesium AST ALT Alkaline Phosphatase C-Reactive Protein Total Protein Albumin Triglycerides Ur Specific [place] Urine Creatinine Crossmatch 06/19/21 06/19/21 06/19/21 18:30 19:20 23:27 WBC RBC Hgb 8.0 L Hct 25.0 L MCV MCH RDW Plt Count Lymph % (Auto) [place] % (Auto) Lymph # (Auto) [place] # (Auto) Seg Neutrophils % Seg Neuts % (Manual) Lymphocytes % (Manual) Monocytes % (Manual) Seg Neutrophils # Seg Neutrophils # Man Lymphocytes # (Manual) Monocytes # (Manual) PT INR APTT Fibrinogen D-Dimer ABG pH POC ABG pCO2 POC ABG pO2 ABG pO2 ABG HCO3 ABG O2 Saturation ABG Base Excess ABG Hemoglobin ABG Oxyhemoglobin Oxyhemoglobin Sodium Potassium Chloride Carbon Dioxide BUN Creatinine Glucose POC Glucose 279 H 290 H Lactic Acid Calcium Phosphorus Magnesium AST ALT Alkaline Phosphatase C-Reactive Protein Total Protein Albumin Triglycerides Ur Specific [place] Urine Creatinine Crossmatch 06/20/21 06/20/21 06/20/21 00:00 04:33 04:33 WBC 22.3 H RBC 3.31 L Hgb 7.4 L 8.5 L Hct 22.5 L 26.5 L MCV MCH 26 L RDW 21.5 H Plt Count Lymph % (Auto) [place] % (Auto) Lymph # (Auto) [place] # (Auto) Seg Neutrophils % Seg Neuts % (Manual) Lymphocytes % (Manual) Monocytes % (Manual) Seg Neutrophils # Seg Neutrophils # Man Lymphocytes # (Manual) Monocytes # (Manual) PT INR APTT Fibrinogen D-Dimer ABG pH POC ABG pCO2 POC ABG pO2 ABG pO2 ABG HCO3 ABG O2 Saturation ABG Base Excess ABG Hemoglobin ABG Oxyhemoglobin Oxyhemoglobin Sodium 148 H Potassium Chloride 114.2 H Carbon Dioxide BUN 70 H Creatinine 1.4 H Glucose 313 H POC Glucose Lactic Acid Calcium 8.2 L Phosphorus Magnesium 2.50 H AST ALT Alkaline Phosphatase C-Reactive Protein Total Protein Albumin Triglycerides Ur Specific [place] Urine Creatinine Crossmatch 06/20/21 06/20/21 06/20/21 04:33 05:27 11:21 WBC RBC Hgb Hct MCV MCH RDW Plt Count Lymph % (Auto) [place] % (Auto) Lymph # (Auto) [place] # (Auto) Seg Neutrophils % Seg Neuts % (Manual) Lymphocytes % (Manual) Monocytes % (Manual) Seg Neutrophils # Seg Neutrophils # Man Lymphocytes # (Manual) Monocytes # (Manual) PT 18.3 H INR 1.37 H APTT Fibrinogen D-Dimer ABG pH POC ABG pCO2 POC ABG pO2 ABG pO2 ABG HCO3 ABG O2 Saturation ABG Base Excess ABG Hemoglobin ABG Oxyhemoglobin Oxyhemoglobin Sodium Potassium Chloride Carbon Dioxide BUN Creatinine Glucose POC Glucose 288 H 306 H Lactic Acid Calcium Phosphorus Magnesium AST ALT Alkaline Phosphatase C-Reactive Protein Total Protein Albumin Triglycerides Ur Specific [place] Urine Creatinine Crossmatch 06/20/21 06/20/21 06/20/21 12:23 15:56 18:20 WBC RBC Hgb 8.2 L 8.1 L Hct 25.9 L 25.5 L MCV MCH RDW Plt Count Lymph % (Auto) [place] % (Auto) Lymph # (Auto) [place] # (Auto) Seg Neutrophils % Seg Neuts % (Manual) Lymphocytes % (Manual) Monocytes % (Manual) Seg Neutrophils # Seg Neutrophils # Man Lymphocytes # (Manual) Monocytes # (Manual) PT INR APTT Fibrinogen D-Dimer ABG pH POC ABG pCO2 POC ABG pO2 ABG pO2 ABG HCO3 ABG O2 Saturation ABG Base Excess ABG Hemoglobin ABG Oxyhemoglobin Oxyhemoglobin Sodium Potassium Chloride Carbon Dioxide BUN Creatinine Glucose POC Glucose 293 H Lactic Acid Calcium Phosphorus Magnesium AST ALT Alkaline Phosphatase C-Reactive Protein Total Protein Albumin Triglycerides Ur Specific [place] Urine Creatinine Crossmatch 06/20/21 06/21/21 06/21/21 23:11 04:20 04:42 WBC 15.1 H RBC 2.84 L Hgb 7.3 L Hct 23.1 L MCV MCH 26 L RDW 21.5 H Plt Count Lymph % (Auto) 3.5 L [place] % (Auto) 11.7 H Lymph # (Auto) 0.5 L [place] # (Auto) 1.8 H Seg Neutrophils % 84.7 H Seg Neuts % (Manual) Lymphocytes % (Manual) Monocytes % (Manual) Seg Neutrophils # 12.8 H Seg Neutrophils # Man Lymphocytes # (Manual) Monocytes # (Manual) PT INR APTT Fibrinogen D-Dimer ABG pH POC ABG pCO2 POC ABG pO2 ABG pO2 98.5 H ABG HCO3 ABG O2 Saturation ABG Base Excess ABG Hemoglobin 7.2 L ABG Oxyhemoglobin Oxyhemoglobin Sodium Potassium Chloride Carbon Dioxide BUN Creatinine Glucose POC Glucose 206 H Lactic Acid Calcium Phosphorus Magnesium AST ALT Alkaline Phosphatase C-Reactive Protein Total Protein Albumin Triglycerides Ur Specific [place] Urine Creatinine Crossmatch 06/21/21 06/21/21 06/21/21 04:42 05:08 11:06 WBC RBC Hgb Hct MCV MCH RDW Plt Count Lymph % (Auto) [place] % (Auto) Lymph # (Auto) [place] # (Auto) Seg Neutrophils % Seg Neuts % (Manual) Lymphocytes % (Manual) Monocytes % (Manual) Seg Neutrophils # Seg Neutrophils # Man Lymphocytes # (Manual) Monocytes # (Manual) PT INR APTT Fibrinogen D-Dimer ABG pH POC ABG pCO2 POC ABG pO2 ABG pO2 ABG HCO3 ABG O2 Saturation ABG Base Excess ABG Hemoglobin ABG Oxyhemoglobin Oxyhemoglobin Sodium 151 H Potassium Chloride 117.2 H Carbon Dioxide 21 L BUN 75 H Creatinine 1.6 H Glucose 216 H POC Glucose 190 H 204 H Lactic Acid Calcium 7.9 L Phosphorus Magnesium 2.60 H AST ALT Alkaline Phosphatase C-Reactive Protein Total Protein Albumin Triglycerides 254 H Ur Specific [place] Urine Creatinine Crossmatch 06/21/21 06/21/21 06/21/21 14:00 16:42 21:52 WBC RBC Hgb 7.1 L 7.2 L Hct 22.0 L 22.1 L MCV MCH RDW Plt Count Lymph % (Auto) [place] % (Auto) Lymph # (Auto) [place] # (Auto) Seg Neutrophils % Seg Neuts % (Manual) Lymphocytes % (Manual) Monocytes % (Manual) Seg Neutrophils # Seg Neutrophils # Man Lymphocytes # (Manual) Monocytes # (Manual) PT INR APTT Fibrinogen D-Dimer ABG pH POC ABG pCO2 POC ABG pO2 ABG pO2 ABG HCO3 ABG O2 Saturation ABG Base Excess ABG Hemoglobin ABG Oxyhemoglobin Oxyhemoglobin Sodium Potassium Chloride Carbon Dioxide BUN Creatinine Glucose POC Glucose 207 H Lactic Acid Calcium Phosphorus Magnesium AST ALT Alkaline Phosphatase C-Reactive Protein Total Protein Albumin Triglycerides Ur Specific [place] Urine Creatinine Crossmatch 06/21/21 06/22/21 06/22/21 23:29 04:30 04:30 WBC 16.8 H RBC 2.93 L Hgb 7.4 L Hct 23.9 L MCV MCH 25 L RDW 21.8 H Plt Count Lymph % (Auto) [place] % (Auto) Lymph # (Auto) [place] # (Auto) Seg Neutrophils % Seg Neuts % (Manual) Lymphocytes % (Manual) Monocytes % (Manual) Seg Neutrophils # Seg Neutrophils # Man Lymphocytes # (Manual) Monocytes # (Manual) PT INR APTT Fibrinogen D-Dimer ABG pH POC ABG pCO2 POC ABG pO2 ABG pO2 ABG HCO3 ABG O2 Saturation ABG Base Excess ABG Hemoglobin ABG Oxyhemoglobin Oxyhemoglobin Sodium 151 H Potassium Chloride 118.7 H Carbon Dioxide BUN 57 H Creatinine Glucose 238 H POC Glucose 273 H Lactic Acid Calcium 8.0 L Phosphorus Magnesium 2.70 H AST ALT Alkaline Phosphatase C-Reactive Protein Total Protein Albumin Triglycerides Ur Specific [place] Urine Creatinine Crossmatch 06/22/21 05:17 WBC RBC Hgb Hct MCV MCH RDW Plt Count Lymph % (Auto) [place] % (Auto) Lymph # (Auto) [place] # (Auto) Seg Neutrophils % Seg Neuts % (Manual) Lymphocytes % (Manual) Monocytes % (Manual) Seg Neutrophils # Seg Neutrophils # Man Lymphocytes # (Manual) Monocytes # (Manual) PT INR APTT Fibrinogen D-Dimer ABG pH POC ABG pCO2 POC ABG pO2 ABG pO2 ABG HCO3 ABG O2 Saturation ABG Base Excess ABG Hemoglobin ABG Oxyhemoglobin Oxyhemoglobin Sodium Potassium Chloride Carbon Dioxide BUN Creatinine Glucose POC Glucose 214 H Lactic Acid Calcium Phosphorus Magnesium AST ALT Alkaline Phosphatase C-Reactive Protein Total Protein Albumin Triglycerides Ur Specific [place] Urine Creatinine Crossmatch Chest x-ray: image reviewed
[2021-06-22] MEDS: FAMOTIDINE 20 MG/2 ML INJ IV SCH ×2 (09:51→21:12)
[2021-06-22] MEDS: INSULIN GLARGINE 100 UNITS/ML SUB-Q SCH ×2 (09:51→21:11)
[2021-06-22] MEDS: hydrALAZINE 25 MG TAB FEEDTUBE SCH ×2 (09:51→13:18)
[2021-06-22] MEDS: DOCUSATE SODIUM 100 MG/10 ML ORAL LIQD PO SCH ×2 (09:51→21:11)
[2021-06-22] MEDS: SENNOSIDES ORAL LIQD 8.8 MG/5 ML ORAL LIQD PO SCH ×2 (09:51→21:12)
[2021-06-22] MEDS: fentaNYL 100 MCG/2 ML INJ IV PRN ×2 (10:33→14:21)
--- NOTE | 2021-06-22 12:06 | Progress Note ---
<VIOLETTE DEMPSEY - Last Filed: 06/22/21 17:36> Assessment and Plan Assessment and plan: This is a 76-year-old female with HTN, Coumadin use , dental caries, PVD s/p stenting right leg, DM, arthritis, depression, gout, and ? Pulmonary hypertension who presented to emergency department on 06/11 with complaints of pain to mandible area and throat and swelling. Work-up in the emergency department included CT scan of the head and neck which showed findings consistent with Jeremiah's angina and anesthesia was called for intubation. Anesthesia intubation attempts were unsuccessful and surgery was consulted for cricothyroidotomy which was unsuccessful in the emergency department and patient was taken to the OR for tracheostomy. Intubation procedure was complicated by development of pneumothorax and excessive bleeding due to supratherapeutic INR s/p multiple FFP's and vitamin K. Remains intubated and sedated in the ICU. Hospital course to date: 06/12: Patient received additional 2 units FFP and 1 unit PRBC and vitamin K today. Overnight critical care placed a femoral CVL. Patient sedated on fe ntanyl, propofol and Versed. Currently on Fabian-Synephrine and Levophed for blood pressure maintenance. Remains amatory support. Infectious disease consulted. Started on sliding scale insulin and recultured. COVID-19 PCR pending. Surgery at bedside to place chest tube. 06/13: Patient was taken back to the OR today for exchange cricothyroid to possible tracheostomy. Patient returned with ETT. Chest tube was changed to larger size in the OR. Patient was hypotensive, tachycardic, hypoxic in the OR and received hespan, albumin and an A-line. Upon arrival patient was increased to max dose Levophed for hypotension which has resolved. Titrating vasopressors as tolerated. Remains on sedation with 3 agents. Apparently patient was not ventilating her left lung Intra-Op. Noted to have subcu hematoma and trauma to postpharyngeal area. Questionable decrease cardiac wall motion noted in OR-> w ill order echocardiogram to further investigate. Patient received additional PRBC today. DIC panel resulted as normal. Patient BUN/creatinine did increase as well as noted to have lactic acidosis. May need IV bolus in addition to pressor use. Likely bronc with Pulmicort today as repeat CXR showed right possible pneumo hydrothorax 06/14: Antibiotics changed to Zosyn per ID, surgical packing removed from neck and makeshift [place] drain placed by surgery and old chronic thyroidectomy site. CXR was completed and RN heard gurgling and blood was noted on dressing. ST elevation noted on bedside monitor and patient was hypoxic. FiO2 increased to 100%. However shortly after patient lost her pulse and ACLS was initiated. Patient received 3 rounds of epinephrine and ROSC was achieved. Stat portable CXR showed resolution of lower lobe collapse on the left and stable right-sided chest tube with hemothorax. CCM updated family. Patient H/H noted to be 7.2/23.2 and did RN to transfuse prepared PRBC which [facility] blood bank. Bedside echo completed. 06/15: Off sedation, intermittently follows commands, remains on the prednisone. Surgery will reassess airway on Thursday to see if any further support is required. Urine studies indicate prerenal, given IV bolus and started on Clinimix today. 06/16: Patient restarted on fentanyl drip due to hypertension. Given more LR due to CR improvement post LR yesterday. Patient started on Lantus subcu after given one-time dose of Lantus. PICC placed today. Patient had a CT chest today which showed no mediasinusitis but extensive subcutaneous air. 06/17: General Surgery recommended transferring patient to a ENT specialized facility. Placed a call to [place], spoke with the opener tender, Dr. Duckworth, who stated that a transfer is possible as long their ENT team accept the patient. Awaiting on a final response. Continue current supportive measures. Basal insulin adjusted for hyperglycemia. 06/18: JEREMIAS overnight. Hypertensive this am, PRN Hydralazine for SBP greater than 160. Remains hyperglycemic, patient is on IV steroids and TPN, basal insulin adjusted. Plan for possible transfer to [place] once an ICU bed is available. 06/19: Low SPO2 and hypotension overnight required Levophed for a short time. Overnight CXR noted with no significant changed. Patient is stable this am and off pressors. Plan for possible Trach and PEG today by General Surgery. 06/20: s/p Trach and PEG. Some bleeding overnight s/p X1 dose of Vitamin K. The bleeding resolved this am, H&H remains stable. Attempted a SAT this am, patient went into SVT, HR in the 160-170 which resolved once sedations were resumed. Plan is to continue to sedation for now, attempt to wean off propofol for a RASS goal of 0 to -2. D/C CCM plan is to wean off sedation as tolerated for PST for possible extubation. Okay to use PEGT per Gen. Surgery. Nutrition consulted for TF management, TF to start tonight once current TPN bag is completed. BG remains elevated, continue current SSI and basal for now, will start tapering IV steroids tomorrow. FWF added for hyponatremia. Wean off pressors as tolerated for MAP above 65. Possible transfer to [place] for ENT eval. 06/21: Overnight events and CXR noted. Worsen subcutaneous emphysema and Rt. Pneumo. CT remains in place and intact to cont. wall suction. Patient remains hemodynamically stable, still on low vent setting. will continue to monitor for now. Patient is also tolerating enteral nutrition via PEGT, TPN D/benjamín. H&H is also trending down, no s/s of any active bleeding. Will continue to trend H&H, t ransfuse if hgb is less than 7. FWF increased for hypernatremia. Still waiting on possible transfer to [place]. 06/22: JEREMIAS overnight. Subcutaneous emphysema is unchanged. CXR with mild improvement. Patient remains hemodynamically stable. Hydralazine added Q8hr for HTN. FWF increased for hypernatremia. Awaiting transfer to [place] for ENT eval. Neuro: Sedated, h/o depression, arthritis -Awake and following commands, on fentanyl -RASS goal 0 to -1 -Avoid delirium -Reorientation as needed -Maintain sleep-wake cycle Cardiac: S/p cardiac arrest, h/o htn, PVD s/p stenting Right leg -06/14 cardiac arrest with ROSC -S/p vasopressor support with Levophed and Fabian-Synephrine -Blood pressure monitoring per protocol -Pressure monitoring via A-line -06/13 Echocardiogram EF 65-70% Respiratory: Acute hypoxic respiratory failure, right pneumothorax -CCM consulted, appreciate recommendations -S/p emergent cricothyroid with surgery with 8.00 ETT -06/19 s/p Tracheostmy -A.m. vent settings:PRVC-30%,6,18,450 -CXR noted with increase subQ air, no pneumothorax; CT remains to continuous wall suction -Right chest tube replaced by surgery -CT to wall suction -Changed to larger bore on 06/13 -Postop CXR shows possible hydropneumothorax on right side -06/13 bronchoscopy showed possible blood clot in left lung which may be acting as mucous plug however it was left in place due to possible bleeding inside lung if removed. -CXR post cardiac arrest shows clearance of mucous plug -06/16 CT chest shows moderate right pneumothorax with collapse of right upper lobe, right thoracostomy tube terminates at the collapsed right upper lobe, bilateral bronchus opacities compatible with infectious/inflammatory etiology, bilateral small pleural effusion, extensive subcutaneous air, small fluid collection in the anterior mediastinum is nonspecific -VAP bundle -SPO2 monitoring : Acute kidney injury possibly secondary to vasomotor nephropathy hypernatremia -FWF increased -Strict intake and output -Renally dose medications -Avoid nephrotoxic medications -Daily weights -Consider nephrology consult if worsens -Trend BMP ID: 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 dental caries -CT neck with contrast showed a significant right floor of mild swelling with extension into the submandibular and submental spaces, significant thickening and inflammation involving the right pharyngeal wall, with the parapharyngeal and retropharyngeal spaces at the level of the thyroid cartilage, epiglottis significantly swollen and so are the aryepiglottic folds resulting in significant airway narrowing at this level, no lymphadenopathy, symmetric submandibular and parathyroid glands, S few scattered caries but no periapical lucencies, nonspecific calcification along the right lateral oropharynx, no definite stone seen within the territory of the submandibular gland ducts, no suspicious rashes lesion -Infectious disease and general surgery consulted, appreciate recommendations -s/p cricothyroidectomy -Will follow surgery to direction and treatment of injury -Per surgery may have mucosal injury -Intra-Op findings include post pharyngeal swelling and bruising -Solu-Medrol 125 every 8 -Antibiotic therapy Zosyn -COVID-19 PCR negative -f/u blood culture -Monitor WBC and temperature curve -s/p 5L normal saline bolus in ED, 6 L LR bolus in ICU - repeat LR bolus today Heme: Coagulopathy, supratherapeutic INR, acute blood loss anemiq, possible component of hemorrhagic shock -Patient is on Coumadin at home -S/p 5 FFP, 7 PRBC, vitamin K x3 -Trend CBC -Presented with H/H of 10.3/34.6 and decreased to 6.7/22.4 -INR 8.18-> 4.55-> 2.1-> 1.23-> 1.16-> 1.31 -Monitor INR -Transfuse hemoglobin less than 7 -Monitor for signs of bleeding -SCDs to BLE while in bed -Avoid chemical anticoagulation in setting of recent blood loss anemia Endo: Hyperglycemia, h/o DM, gout -Patient is on TPN and on IV steroids -06/19 s/p PEG Tube placement- okay to use per Gen surgery -Nutrition consulted for TF management -Patient is tolerating TF, advanced TF to goal as tolerated -Continue high dose SSI Q6hrs and lantus BID -Tapering IV steroids tomorrow -Avoid hypoglycemia The high probability of a clinically significant, sudden or life threatening deterioration of the [multi] system(s) required my full and direct attention, intervention and personal management. The aggregate critical care time was [60] minutes. This time is in addition to time spent performing reported procedures but includes the following: [x] Data Review and interpretation [x] Patient assessment and monitoring of vital signs [x] Documentation [x] Medication orders and management Disposition Plan: ICU Total Time Spent with Patient (Minutes): 60 History Interval history: Patient seen and examined at the bedside. Remains on fentanyl gtt. Awake and gustavo rt, following simple commands. Subcutaneous emphesa is unchanged, CT remains in place to wall suction. JEREMIAS overnight Hospitalist Physical - Constitutional Vitals: Temp Pulse Resp BP Pulse Ox 98.4 F 85 14 176/77 100 06/22/21 08:18 06/22/21 11:15 06/22/21 11:15 06/22/21 11:15 06/22/21 11:15 General appearance: Present: no acute distress, obese, other (On the vent and on sedation) - EENT Eyes: Present: PERRL ENT: hearing intact - Neck Neck: Present: normal ROM - Respiratory Respiratory effort: normal Respiratory: bilateral: rhonchi - Cardiovascular Rhythm: regular Heart Sounds: Present: S1 & S2 - Extremities Extremities: no ischemia, pulses intact, pulses symmetrical Extremity abnormal: edema, other (Subcutaneous emphysema) - Peripheral Assessment Generalized Edema Type: Pitting Edema Degree: 2+ Capillary Refill: < 3 seconds Skin Temperature: Warm Peripheral Pulses: within normal limits - Abdominal General gastrointestinal: soft, non-distended, normal bowel sounds - Integumentary Integumentary: Present: warm, dry - Psychiatric Psychiatric: cooperative - Neurologic Neurologic: other (Awake, follow simple commands) - Allied Health Allied health notes reviewed: nursing HEART Score - HEART Score Troponin: Troponin T < 0.010 ng/mL (0.00-0.029) 06/11/21 23:21 Results - Labs CBC & Chem 7: 06/22/21 14:20 06/22/21 04:30 Labs: Laboratory Last Values WBC 16.8 K/mm3 (4.5-11.0) H 06/22/21 04:30 RBC 2.93 M/mm3 (3.65-5.03) L 06/22/21 04:30 Hgb 7.4 gm/dl (10.1-14.3) L 06/22/21 04:30 Hct 23.9 % (30.3-42.9) L 06/22/21 04:30 MCV 82 fl (79-97) 06/22/21 04:30 MCH 25 pg (28-32) L 06/22/21 04:30 MCHC 31 % (30-34) 06/22/21 04:30 RDW 21.8 % (13.2-15.2) H 06/22/21 04:30 Plt Count 234 K/mm3 (140-440) 06/22/21 04:30 Lymph % (Auto) 3.5 % (13.4-35.0) L 06/21/21 04:42 [place] % (Auto) 11.7 % (0.0-7.3) H 06/21/21 04:42 Eos % (Auto) 0.0 % (0.0-4.3) 06/21/21 04:42 Baso % (Auto) 0.1 % (0.0-1.8) 06/21/21 04:42 Lymph # (Auto) 0.5 K/mm3 (1.2-5.4) L 06/21/21 04:42 [place] # (Auto) 1.8 K/mm3 (0.0-0.8) H 06/21/21 04:42 Eos # (Auto) 0.0 K/mm3 (0.0-0.4) 06/21/21 04:42 Baso # (Auto) 0.0 K/mm3 (0.0-0.1) 06/21/21 04:42 Add Manual Diff Complete 06/13/21 Unknown Total Counted 100 06/13/21 Unknown Seg Neutrophils % 84.7 % (40.0-70.0) H 06/21/21 04:42 Seg Neuts % (Manual) 88.0 % (40.0-70.0) H 06/13/21 Unknown Band Neutrophils % 2.0 % 06/13/21 Unknown Lymphocytes % (Manual) 4.0 % (13.4-35.0) L 06/13/21 Unknown Reactive Lymphs % (Man) 0 % 06/13/21 Unknown Monocytes % (Manual) 6.0 % (0.0-7.3) 06/13/21 Unknown Eosinophils % (Manual) 0 % (0.0-4.3) 06/13/21 Unknown Basophils % (Manual) 0 % (0.0-1.8) 06/13/21 Unknown Metamyelocytes % 0 % 06/13/21 Unknown Myelocytes % 0 % 06/13/21 Unknown Promyelocytes % 0 % 06/13/21 Unknown Blast Cells % 0 % 06/13/21 Unknown Nucleated RBC % Not Reportable 06/13/21 Unknown Seg Neutrophils # 12.8 K/mm3 (1.8-7.7) H 06/21/21 04:42 Seg Neutrophils # Man 19.8 K/mm3 (1.8-7.7) H 06/13/21 Unknown Band Neutrophils # 0.5 K/mm3 06/13/21 Unknown Lymphocytes # (Manual) 0.9 K/mm3 (1.2-5.4) L 06/13/21 Unknown Abs React Lymphs (Man) 0.0 K/mm3 06/13/21 Unknown Monocytes # (Manual) 1.4 K/mm3 (0.0-0.8) H 06/13/21 Unknown Eosinophils # (Manual) 0.0 K/mm3 (0.0-0.4) 06/13/21 Unknown Basophils # (Manual) 0.0 K/mm3 (0.0-0.1) 06/13/21 Unknown Metamyelocytes # 0.0 K/mm3 06/13/21 Unknown Myelocytes # 0.0 K/mm3 06/13/21 Unknown Promyelocytes # 0.0 K/mm3 06/13/21 Unknown Blast Cells # 0.0 K/mm3 06/13/21 Unknown WBC Morphology Not Reportable 06/13/21 Unknown Hypersegmented Neuts Not Reportable 06/13/21 Unknown Hyposegmented Neuts Not Reportable 06/13/21 Unknown Hypogranular Neuts Not Reportable 06/13/21 Unknown Smudge Cells Not Reportable 06/13/21 Unknown Toxic Granulation 2+ 06/13/21 Unknown Toxic Vacuolation Not Reportable 06/13/21 Unknown Dohle Bodies Not Reportable 06/13/21 Unknown Pelger-Huet Anomaly Not Reportable 06/13/21 Unknown Dennis Rods Not Reportable 06/13/21 Unknown Platelet Estimate Consistent w auto 06/13/21 Unknown Clumped Platelets Not Reportable 06/13/21 Unknown Plt Clumps, EDTA Not Reportable 06/13/21 Unknown Large Platelets Not Reportable 06/13/21 Unknown Giant Platelets Not Reportable 06/13/21 Unknown Platelet Satelliting Not Reportable 06/13/21 Unknown Plt Morphology Comment Not Reportable 06/13/21 Unknown RBC Morphology Not Reportable 06/13/21 Unknown Dimorphic RBCs Not Reportable 06/13/21 Unknown Polychromasia Few 06/13/21 Unknown Hypochromasia 2+ 06/13/21 Unknown Poikilocytosis Not Reportable 06/13/21 Unknown Anisocytosis 1+ 06/13/21 Unknown Microcytosis Not Reportable 06/13/21 Unknown Macrocytosis Not Reportable 06/13/21 Unknown Spherocytes Not Reportable 06/13/21 Unknown Pappenheimer Bodies Not Reportable 06/13/21 Unknown Sickle Cells Not Reportable 06/13/21 Unknown Target Cells Not Reportable 06/13/21 Unknown Tear Drop Cells Not Reportable 06/13/21 Unknown Ovalocytes Not Reportable 06/13/21 Unknown Stomatocytes Few 06/12/21 01:45 Helmet Cells Not Reportable 06/13/21 Unknown [place] Bodies Not Reportable 06/13/21 Unknown Reading Rings Not Reportable 06/13/21 Unknown Nelsy Cells Not Reportable 06/13/21 Unknown Bite Cells Not Reportable 06/13/21 Unknown Crenated Cell Not Reportable 06/13/21 Unknown Elliptocytes Not Reportable 06/13/21 Unknown Acanthocytes (Spur) Not Reportable 06/13/21 Unknown Rouleaux Not Reportable 06/13/21 Unknown Hemoglobin C Crystals Not Reportable 06/13/21 Unknown Schistocytes Not Reportable 06/13/21 Unknown Malaria parasites Not Reportable 06/13/21 Unknown Edin Bodies Not Reportable 06/13/21 Unknown Hem Pathologist Commnt No 06/13/21 Unknown PT 18.3 Sec. (12.2-14.9) H 06/20/21 04:33 INR 1.37 (0.87-1.13) H 06/20/21 04:33 APTT 26.4 Sec. (24.2-36.6) 06/13/21 Unknown Fibrinogen 546 mg/dl (211-480) H 06/13/21 Unknown D-Dimer 1244.63 ng/mlDDU (0-234) H 06/13/21 Unknown ABG pH 7.426 pH Units (7.350-7.450) 06/21/21 04:20 POC ABG pCO2 25.6 mmHg (32.0-48.0) L 06/13/21 04:31 ABG pCO2 35.1 mm Hg 06/21/21 04:20 POC ABG pO2 138.8 mmHg (83-108) H 06/13/21 04:31 ABG pO2 98.5 mm Hg (80.0-90.0) H 06/21/21 04:20 POC ABG HCO3 21.4 06/13/21 04:31 ABG HCO3 22.6 mmol/L (20.0-26.0) 06/21/21 04:20 ABG O2 Saturation 97.7 % (95.0-99.0) 06/21/21 04:20 ABG O2 Content 9.9 (0.0-44) 06/21/21 04:20 POC ABG Base Excess -0.7 06/13/21 04:31 ABG Base Excess -1.6 mmol/L (-2.0-3.0) 06/21/21 04:20 ABG Hemoglobin 7.2 gm/dl (12.0-16.0) L 06/21/21 04:20 ABG Oxyhemoglobin 98.1 (94-98) H 06/13/21 04:31 ABG Carboxyhemoglobin 1.7 % (0.0-5.0) 06/21/21 04:20 ABG Methemoglobin 0.5 % (0.0-1.5) 06/21/21 04:20 Oxyhemoglobin 95.5 % (95.0-99.0) 06/21/21 04:20 Carboxyhemoglobin 0.8 (0.5-1.5) 06/13/21 04:31 FiO2 30 % 06/21/21 04:20 FiO2 % 40.0 06/13/21 04:31 Sodium 151 mmol/L (137-145) H 06/22/21 04:30 Potassium 3.8 mmol/L (3.6-5.0) 06/22/21 04:30 Chloride 118.7 mmol/L (98-107) H 06/22/21 04:30 Carbon Dioxide 22 mmol/L (22-30) 06/22/21 04:30 Anion Gap 14 mmol/L 06/22/21 04:30 BUN 57 mg/dL (7-17) H 06/22/21 04:30 Creatinine 1.2 mg/dL (0.6-1.2) 06/22/21 04:30 Estimated GFR 53 ml/min 06/22/21 04:30 BUN/Creatinine Ratio 48 % 06/22/21 04:30 Glucose 238 mg/dL (65-100) H 06/22/21 04:30 POC Glucose 214 mg/dL (70-105) H 06/22/21 11:31 Lactic Acid 5.30 mmol/L (0.7-2.0) H* 06/13/21 15:45 Calcium 8.0 mg/dL (8.4-10.2) L 06/22/21 04:30 Phosphorus 2.60 mg/dL (2.5-4.5) 06/22/21 04:30 Magnesium 2.70 mg/dL (1.7-2.3) H 06/22/21 04:30 Total Bilirubin 0.40 mg/dL (0.1-1.2) 06/15/21 03:56 AST 64 units/L (5-40) H 06/15/21 03:56 ALT 106 units/L (7-56) H 06/15/21 03:56 Alkaline Phosphatase 55 units/L (35-129) 06/15/21 03:56 Troponin T < 0.010 ng/mL (0.00-0.029) 06/11/21 23:21 C-Reactive Protein 3.30 mg/dL (0.00-1.30) H 06/16/21 04:32 Total Protein 5.1 g/dL (6.3-8.2) L 06/15/21 03:56 Albumin 2.9 g/dL (3.9-5) L 06/15/21 03:56 Albumin/Globulin Ratio 1.3 % 06/15/21 03:56 Triglycerides 254 mg/dL (2-149) H 06/21/21 04:42 Urine Color Yellow (Yellow) 06/12/21 17:00 Urine Turbidity Clear (Clear) 06/12/21 17:00 Urine pH 5.0 (5.0-7.0) 06/12/21 17:00 Ur Specific [place] 1.035 (1.003-1.030) H 06/12/21 17:00 Urine Protein 30 mg/dl mg/dL (Negative) 06/12/21 17:00 Urine Glucose (UA) 50 mg/dL (Negative) 06/12/21 17:00 Urine Ketones Tr mg/dL (Negative) 06/12/21 17:00 Urine Blood Neg (Negative) 06/12/21 17:00 Urine Nitrite Neg (Negative) 06/12/21 17:00 Urine Bilirubin Neg (Negative) 06/12/21 17:00 Urine Urobilinogen < 2.0 mg/dL (<2.0) 06/12/21 17:00 Ur Leukocyte Esterase Neg (Negative) 06/12/21 17:00 Urine WBC (Auto) < 1.0 /HPF (0.0-6.0) 06/12/21 17:00 Urine RBC (Auto) < 1.0 /HPF (0.0-6.0) 06/12/21 17:00 Urine Creatinine 81.1 mg/dL (0.1-20.0) H 06/15/21 10:40 Urine Sodium 42 mmol/L 06/15/21 10:40 Coronavirus (PCR) Negative (Negative) 06/12/21 09:50 Blood Type O POSITIVE 02/08/22 19:20 Antibody Screen Negative 06/11/21 19:20 Crossmatch See Detail 06/11/21 19:20 Lujan/IV: Voiding Method Indwelling Catheter Active Medications - Current Medications Current Medications: Generic Name Dose Route Start Last Admin Trade Name Freq PRN Reason Stop Dose Admin Lipase/Protease/Amylase 1 each 06/19/21 19:20 Lipase 10,500/Protease 25,000/Amylase 43,750 (Units) Dr Cap FEEDTUBE PRN PRN For Clogged Feeding Tube Atorvastatin Calcium 20 mg 06/22/21 22:00 Atorvastatin 20 Mg Tab PO QHS JOLENE Docusate Sodium 100 mg 06/20/21 10:00 06/22/21 09:51 Docusate Sodium 100 Mg/10 Ml Oral Liqd PO 100 mg BID JOLENE Administration Famotidine 10 mg 06/15/21 22:00 06/22/21 09:51 Famotidine 20 Mg/2 Ml Inj IV 10 mg BID JOLENE Administration Fentanyl 50 mcg 06/11/21 22:55 06/22/21 10:33 Fentanyl 100 Mcg/2 Ml Inj IV 50 mcg Q10MIN PRN Administration ANALGESIA Fentanyl 50 mcg 06/20/21 12:00 Fentanyl 100 Mcg/2 Ml Inj IV Q2HR PRN For CPOT greater than 3 Hydralazine HCl 10 mg 06/16/21 08:00 06/19/21 03:02 Hydralazine 20 Mg/1 Ml Inj IV 10 mg Q4H PRN Administration Hypertension Hydralazine HCl 50 mg 06/22/21 09:00 06/22/21 09:51 Hydralazine 25 Mg Tab FEEDTUBE 50 mg Q8HR JOLENE Administration Hydromorphone HCl 0.5 mg 06/11/21 20:42 Hydromorphone 1 Mg/1 Ml Inj IV Q3H PRN Pain , Severe (7-10) Fentanyl Citrate 2,000 mcg in 100 mls @ 5.466 mls/hr 06/11/21 23:00 06/22/21 08:32 Fentanyl Drip Premix IV 4 mcg/kg/hr TITR JOLENE 21.863 mls/hr Administration Protocol 1 MCG/KG/HR Phenylephrine HCl 100 mg/ 100 mls @ 3 mls/hr 06/11/21 23:45 06/14/21 07:00 Sodium Chloride IV 0 mcg/min TITR JOLENE 0 mls/hr Titration Protocol 50 MCG/MIN NORepinephrine/NS 8 MG-250 ML 8 mg in 250 mls @ 3.75 mls/hr 06/12/21 02:00 06/20/21 12:13 Norepinephrine/Ns 8 Mg-250 Ml (Double Conc) IV 0 mcg/min TITRATE JOLENE 0 mls/hr Titration Protocol 2 MCG/MIN Propofol 1,000 mg in 100 mls @ 3.279 mls/hr 06/12/21 03:00 06/21/21 09:13 Diprivan 10 Mg/Ml IV 0 mcg/kg/min TITR JOLENE 0 mls/hr Titration Protocol 5 MCG/KG/MIN Piperacillin Sod/Tazobactam Sod 3.375 gm in 50 mls @ 100 mls/hr 06/21/21 18:00 06/22/21 12:01 Zosyn/Ns 3.375gm/50ml IV 100 mls/hr Q6HR JOLENE Administration Insulin Glargine 25 units 06/19/21 10:00 06/22/21 09:51 Insulin Glargine 100 Units/Ml SUB-Q 25 units BID JOLENE Administration Insulin Human Lispro 0 unit 06/12/21 12:00 06/22/21 12:01 Insulin Lispro 100 Unit/Ml SUB-Q 4 unit Q6HR JOLENE Administration Protocol Labetalol HCl 10 mg 06/21/21 18:00 06/22/21 08:33 Labetalol 20 Mg/4 Ml Inj IV 10 mg Q4HR PRN Administration Hypertension Methylprednisolone Sodium Succinate 60 mg 06/21/21 06:00 06/22/21 06:07 Methylprednisolone Sod Succinate 125 Mg/2 Ml Inj IV 60 mg Q8HR JOLENE Administration Metoclopramide HCl 10 mg 06/11/21 20:42 Metoclopramide 10 Mg/2 Ml Inj IV Q6H PRN Nausea And Vomiting Ondansetron HCl 4 mg 06/11/21 20:42 Ondansetron 4 Mg/2 Ml Inj IV Q3H PRN Nausea And Vomiting Senna 17.6 mg 06/20/21 10:00 06/22/21 09:51 Sennosides Oral Liqd 8.8 Mg/5 Ml Oral Liqd PO 17.6 mg Q12HR JOLENE Administration Simple Syrup 15 ml 06/19/21 19:20 Simple Syrup 15 Ml FEEDTUBE PRN PRN Hypoglycemia Simple Syrup 30 ml 06/19/21 19:20 Simple Syrup 15 Ml FEEDTUBE PRN PRN Hypoglycemia Sodium Bicarbonate 325 mg 06/19/21 19:20 Sodium Bicarbonate 325 Mg Tab FEEDTUBE PRN PRN For Clogged Feeding Tube Sodium Chloride 10 ml 06/11/21 22:00 06/22/21 12:02 Sodium Chloride 0.9% 10 Ml Flush Syringe IV 10 ml BID JOLENE Administration Sodium Chloride 10 ml 06/11/21 20:42 Sodium Chloride 0.9% 10 Ml Flush Syringe IV PRN PRN LINE FLUSH Nutrition/Malnutrition Assess - Dietary Evaluation Nutrition/Malnutrition Findings: Nutrition Notes Start: 06/16/21 12:10 Freq: Status: Active Protocol: Document 06/21/21 14:18 BRITNI (Rec: 06/21/21 14:29 CABELEN [id number]) Nutrition Notes Initial or Follow up Brief Note Labs/Tests Na 151 BUN 75 Cr 1.6 BG 216 Mg 2.6 Height 5 ft 8 in Weight 109.316 kg [place] Body Weight (kg) 63.63 BMI 36.6 Subjective/Other Information BS labs remain elevated; current TF formula is not a low-CHO formula. Is patient on ventilator? Yes Is Patient Ambulatory and/or Out of Bed No REE-([facility]-confined to bed) 5701.409 Calculation Used for Recommendations 65-70% energy needs Additional Notes Energy needs: 1280-1379kcal/ day Pro needs 2g/kg IBW: 127g/day Fluid needs 1ml/kcal Nutrition Intervention Nutrition Support: Change TF formula to Vital AF 1.2 at 50ml/hr with 200ml water flush q4h. When hypernatermia resolved, provide 80ml water flush q4h. Kcal 1,440 Protein (gm) 90 Carbohydrates (gm) 133 Fat (gm) 65 Fluid (mL) 973 Fiber (gm) 6 Follow-Up By: 06/22/21 Additional Comments F/U: TF formula change/ tolerance, vent status, Na lab /water flushes <MIKE CORTEZ - Last Filed: 06/26/21 16:11> Assessment and Plan Assessment and plan: I saw and evaluated the patient. I agree with the findings and the plan of care as documented in the Nurse Practitioner's~note, with the following corrections and additions. Hospitalist Physical - Constitutional Vitals: Temp Pulse Resp BP Pulse Ox 98.9 F 88 15 160/79 100 06/26/21 11:42 06/26/21 12:50 06/26/21 11:30 06/26/21 12:50 06/26/21 12:50 HEART Score - HEART Score Troponin: Troponin T < 0.010 ng/mL (0.00-0.029) 06/11/21 23:21 Results - Labs CBC & Chem 7: 06/26/21 05:29 06/26/21 05:29 Labs: Laboratory Last Values WBC 16.2 K/mm3 (4.5-11.0) H 06/26/21 05:29 RBC 3.03 M/mm3 (3.65-5.03) L 06/26/21 05:29 Hgb 8.0 gm/dl (10.1-14.3) L 06/26/21 05:29 Hct 25.1 % (30.3-42.9) L 06/26/21 05:29 MCV 83 fl (79-97) 06/26/21 05:29 MCH 26 pg (28-32) L 06/26/21 05:29 MCHC 32 % (30-34) 06/26/21 05:29 RDW 23.2 % (13.2-15.2) H 06/26/21 05:29 Plt Count 274 K/mm3 (140-440) 06/26/21 05:29 Lymph % (Auto) 3.5 % (13.4-35.0) L 06/21/21 04:42 [place] % (Auto) 11.7 % (0.0-7.3) H 06/21/21 04:42 Eos % (Auto) 0.0 % (0.0-4.3) 06/21/21 04:42 Baso % (Auto) 0.1 % (0.0-1.8) 06/21/21 04:42 Lymph # (Auto) 0.5 K/mm3 (1.2-5.4) L 06/21/21 04:42 [place] # (Auto) 1.8 K/mm3 (0.0-0.8) H 06/21/21 04:42 Eos # (Auto) 0.0 K/mm3 (0.0-0.4) 06/21/21 04:42 Baso # (Auto) 0.0 K/mm3 (0.0-0.1) 06/21/21 04:42 Add Manual Diff Complete 06/13/21 Unknown Total Counted 100 06/13/21 Unknown Seg Neutrophils % 84.7 % (40.0-70.0) H 06/21/21 04:42 Seg Neuts % (Manual) 88.0 % (40.0-70.0) H 06/13/21 Unknown Band Neutrophils % 2.0 % 06/13/21 Unknown Lymphocytes % (Manual) 4.0 % (13.4-35.0) L 06/13/21 Unknown Reactive Lymphs % (Man) 0 % 06/13/21 Unknown Monocytes % (Manual) 6.0 % (0.0-7.3) 06/13/21 Unknown Eosinophils % (Manual) 0 % (0.0-4.3) 06/13/21 Unknown Basophils % (Manual) 0 % (0.0-1.8) 06/13/21 Unknown Metamyelocytes % 0 % 06/13/21 Unknown Myelocytes % 0 % 06/13/21 Unknown Promyelocytes % 0 % 06/13/21 Unknown Blast Cells % 0 % 06/13/21 Unknown Nucleated RBC % Not Reportable 06/13/21 Unknown Seg Neutrophils # 12.8 K/mm3 (1.8-7.7) H 06/21/21 04:42 Seg Neutrophils # Man 19.8 K/mm3 (1.8-7.7) H 06/13/21 Unknown Band Neutrophils # 0.5 K/mm3 06/13/21 Unknown Lymphocytes # (Manual) 0.9 K/mm3 (1.2-5.4) L 06/13/21 Unknown Abs React Lymphs (Man) 0.0 K/mm3 06/13/21 Unknown Monocytes # (Manual) 1.4 K/mm3 (0.0-0.8) H 06/13/21 Unknown Eosinophils # (Manual) 0.0 K/mm3 (0.0-0.4) 06/13/21 Unknown Basophils # (Manual) 0.0 K/mm3 (0.0-0.1) 06/13/21 Unknown Metamyelocytes # 0.0 K/mm3 06/13/21 Unknown Myelocytes # 0.0 K/mm3 06/13/21 Unknown Promyelocytes # 0.0 K/mm3 06/13/21 Unknown Blast Cells # 0.0 K/mm3 06/13/21 Unknown WBC Morphology Not Reportable 06/13/21 Unknown Hypersegmented Neuts Not Reportable 06/13/21 Unknown Hyposegmented Neuts Not Reportable 06/13/21 Unknown Hypogranular Neuts Not Reportable 06/13/21 Unknown Smudge Cells Not Reportable 06/13/21 Unknown Toxic Granulation 2+ 06/13/21 Unknown Toxic Vacuolation Not Reportable 06/13/21 Unknown Dohle Bodies Not Reportable 06/13/21 Unknown Pelger-Huet Anomaly Not Reportable 06/13/21 Unknown Dennis Rods Not Reportable 06/13/21 Unknown Platelet Estimate Consistent w auto 06/13/21 Unknown Clumped Platelets Not Reportable 06/13/21 Unknown Plt Clumps, EDTA Not Reportable 06/13/21 Unknown Large Platelets Not Reportable 06/13/21 Unknown Giant Platelets Not Reportable 06/13/21 Unknown Platelet Satelliting Not Reportable 06/13/21 Unknown Plt Morphology Comment Not Reportable 06/13/21 Unknown RBC Morphology Not Reportable 06/13/21 Unknown Dimorphic RBCs Not Reportable 06/13/21 Unknown Polychromasia Few 06/13/21 Unknown Hypochromasia 2+ 06/13/21 Unknown Poikilocytosis Not Reportable 06/13/21 Unknown Anisocytosis 1+ 06/13/21 Unknown Microcytosis Not Reportable 06/13/21 Unknown Macrocytosis Not Reportable 06/13/21 Unknown Spherocytes Not Reportable 06/13/21 Unknown Pappenheimer Bodies Not Reportable 06/13/21 Unknown Sickle Cells Not Reportable 06/13/21 Unknown Target Cells Not Reportable 06/13/21 Unknown Tear Drop Cells Not Reportable 06/13/21 Unknown Ovalocytes Not Reportable 06/13/21 Unknown Stomatocytes Few 06/12/21 01:45 Helmet Cells Not Reportable 06/13/21 Unknown [place] Bodies Not Reportable 06/13/21 Unknown Reading Rings Not Reportable 06/13/21 Unknown [place] Cells Not Reportable 06/13/21 Unknown Bite Cells Not Reportable 06/13/21 Unknown Crenated Cell Not Reportable 06/13/21 Unknown Elliptocytes Not Reportable 06/13/21 Unknown Acanthocytes (Spur) Not Reportable 06/13/21 Unknown Rouleaux Not Reportable 06/13/21 Unknown Hemoglobin C Crystals Not Reportable 06/13/21 Unknown Schistocytes Not Reportable 06/13/21 Unknown Malaria parasites Not Reportable 06/13/21 Unknown Edin Bodies Not Reportable 06/13/21 Unknown Hem Pathologist Commnt No 06/13/21 Unknown PT 18.3 Sec. (12.2-14.9) H 06/20/21 04:33 INR 1.37 (0.87-1.13) H 06/20/21 04:33 APTT 26.4 Sec. (24.2-36.6) 06/13/21 Unknown Fibrinogen 546 mg/dl (211-480) H 06/13/21 Unknown D-Dimer 1244.63 ng/mlDDU (0-234) H 06/13/21 Unknown ABG pH 7.426 pH Units (7.350-7.450) 06/21/21 04:20 POC ABG pCO2 25.6 mmHg (32.0-48.0) L 06/13/21 04:31 ABG pCO2 35.1 mm Hg 06/21/21 04:20 POC ABG pO2 138.8 mmHg (83-108) H 06/13/21 04:31 ABG pO2 98.5 mm Hg (80.0-90.0) H 06/21/21 04:20 POC ABG HCO3 21.4 06/13/21 04:31 ABG HCO3 22.6 mmol/L (20.0-26.0) 06/21/21 04:20 ABG O2 Saturation 97.7 % (95.0-99.0) 06/21/21 04:20 ABG O2 Content 9.9 (0.0-44) 06/21/21 04:20 POC ABG Base Excess -0.7 06/13/21 04:31 ABG Base Excess -1.6 mmol/L (-2.0-3.0) 06/21/21 04:20 ABG Hemoglobin 7.2 gm/dl (12.0-16.0) L 06/21/21 04:20 ABG Oxyhemoglobin 98.1 (94-98) H 06/13/21 04:31 ABG Carboxyhemoglobin 1.7 % (0.0-5.0) 06/21/21 04:20 ABG Methemoglobin 0.5 % (0.0-1.5) 06/21/21 04:20 Oxyhemoglobin 95.5 % (95.0-99.0) 06/21/21 04:20 Carboxyhemoglobin 0.8 (0.5-1.5) 06/13/21 04:31 FiO2 30 % 06/21/21 04:20 FiO2 % 40.0 06/13/21 04:31 Sodium 150 mmol/L (137-145) H 06/26/21 05:29 Potassium 3.8 mmol/L (3.6-5.0) 06/26/21 05:29 Chloride 114.8 mmol/L (98-107) H 06/26/21 05:29 Carbon Dioxide 24 mmol/L (22-30) 06/26/21 05:29 Anion Gap 15 mmol/L 06/26/21 05:29 BUN 29 mg/dL (7-17) H 06/26/21 05:29 Creatinine 0.9 mg/dL (0.6-1.2) 06/26/21 05:29 Estimated GFR > 60 ml/min 06/26/21 05:29 BUN/Creatinine Ratio 32 % 06/26/21 05:29 Glucose 229 mg/dL (65-100) H 06/26/21 05:29 POC Glucose 222 mg/dL (70-105) H 06/26/21 15:59 Lactic Acid 5.30 mmol/L (0.7-2.0) H* 06/13/21 15:45 Calcium 8.2 mg/dL (8.4-10.2) L 06/26/21 05:29 Phosphorus 2.70 mg/dL (2.5-4.5) 06/25/21 Unknown Magnesium 2.20 mg/dL (1.7-2.3) 06/25/21 Unknown Total Bilirubin 0.40 mg/dL (0.1-1.2) 06/15/21 03:56 AST 64 units/L (5-40) H 06/15/21 03:56 ALT 106 units/L (7-56) H 06/15/21 03:56 Alkaline Phosphatase 55 units/L (35-129) 06/15/21 03:56 Troponin T < 0.010 ng/mL (0.00-0.029) 06/11/21 23:21 C-Reactive Protein 3.30 mg/dL (0.00-1.30) H 06/16/21 04:32 Total Protein 5.1 g/dL (6.3-8.2) L 06/15/21 03:56 Albumin 2.9 g/dL (3.9-5) L 06/15/21 03:56 Albumin/Globulin Ratio 1.3 % 06/15/21 03:56 Triglycerides 254 mg/dL (2-149) H 06/21/21 04:42 Urine Color Yellow (Yellow) 06/12/21 17:00 Urine Turbidity Clear (Clear) 06/12/21 17:00 Urine pH 5.0 (5.0-7.0) 06/12/21 17:00 Ur Specific [place] 1.035 (1.003-1.030) H 06/12/21 17:00 Urine Protein 30 mg/dl mg/dL (Negative) 06/12/21 17:00 Urine Glucose (UA) 50 mg/dL (Negative) 06/12/21 17:00 Urine Ketones Tr mg/dL (Negative) 06/12/21 17:00 Urine Blood Neg (Negative) 06/12/21 17:00 Urine Nitrite Neg (Negative) 06/12/21 17:00 Urine Bilirubin Neg (Negative) 06/12/21 17:00 Urine Urobilinogen < 2.0 mg/dL (<2.0) 06/12/21 17:00 Ur Leukocyte Esterase Neg (Negative) 06/12/21 17:00 Urine WBC (Auto) < 1.0 /HPF (0.0-6.0) 06/12/21 17:00 Urine RBC (Auto) < 1.0 /HPF (0.0-6.0) 06/12/21 17:00 Urine Creatinine 81.1 mg/dL (0.1-20.0) H 06/15/21 10:40 Urine Sodium 42 mmol/L 06/15/21 10:40 Coronavirus (PCR) Negative (Negative) 06/12/21 09:50 Blood Type O POSITIVE 06/24/21 06:40 Antibody Screen Negative 06/24/21 06:40 Crossmatch See Detail 06/24/21 06:40 Lujan/IV: Voiding Method External Female Catheter Active Medications - Current Medications Current Medications: Generic Name Dose Route Start Last Admin Trade Name Freq PRN Reason Stop Dose Admin Amlodipine Besylate 5 mg 06/23/21 10:00 06/26/21 10:27 Amlodipine 5 Mg Tab PO 5 mg QDAY JOLENE Administration Lipase/Protease/Amylase 1 each 06/19/21 19:20 Lipase 10,500/Protease 25,000/Amylase 43,750 (Units) Dr Melgar FEEDTUBE PRN PRN For Clogged Feeding Tube Atorvastatin Calcium 20 mg 06/22/21 22:00 06/25/21 22:00 Atorvastatin 20 Mg Tab PO 20 mg QHS JOLENE Administration Docusate Sodium 100 mg 06/20/21 10:00 06/26/21 10:28 Docusate Sodium 100 Mg/10 Ml Oral Liqd PO 100 mg BID JOLENE Administration Famotidine 20 mg 06/24/21 22:00 06/26/21 10:27 Famotidine 20 Mg Tab FEEDTUBE 20 mg BID JOLENE Administration Fentanyl 50 mcg 06/20/21 12:00 06/26/21 01:25 Fentanyl 100 Mcg/2 Ml Inj IV 50 mcg Q2HR PRN Administration For CPOT greater than 3 Fentanyl 50 mcg 06/24/21 21:50 Fentanyl 100 Mcg/2 Ml Inj IV Q10MIN PRN ANALGESIA Hydralazine HCl 100 mg 06/22/21 19:00 06/26/21 13:41 Hydralazine 100 Mg Tab FEEDTUBE 100 mg Q8HR JOLENE Administration Hydromorphone HCl 0.5 mg 06/11/21 20:42 06/26/21 13:42 Hydromorphone 1 Mg/1 Ml Inj IV 0.5 mg Q3H PRN Administration Pain , Severe (7-10) NORepinephrine/NS 8 MG-250 ML 8 mg in 250 mls @ 3.75 mls/hr 06/12/21 02:00 06/20/21 12:13 Norepinephrine/Ns 8 Mg-250 Ml (Double Conc) IV 0 mcg/min TITRATE JOLENE 0 mls/hr Titration Protocol 2 MCG/MIN Fentanyl Citrate 2,000 mcg in 100 mls @ 5.466 mls/hr 06/24/21 22:00 06/25/21 09:30 Fentanyl Drip Premix IV 0 mcg/kg/hr TITR JOLENE 0 mls/hr Titration Protocol 1 MCG/KG/HR Piperacillin Sod/Tazobactam Sod 4.5 gm in 100 mls @ 200 mls/hr 06/25/21 12:00 06/26/21 13:41 Zosyn/Ns 4.5gm/100ml IV 200 mls/hr Q6HR JOLENE Administration Protocol Insulin Glargine 25 units 06/19/21 10:00 06/26/21 10:27 Insulin Glargine 100 Units/Ml SUB-Q 25 units BID JOLENE Administration Insulin Human Lispro 0 unit 06/12/21 12:00 06/26/21 13:42 Insulin Lispro 100 Unit/Ml SUB-Q 4 unit Q6HR JOLENE Administration Protocol Insulin Human Lispro 3 unit 06/26/21 12:00 06/26/21 13:41 Insulin Lispro 100 Unit/Ml SUB-Q 3 unit Q6HR JOLENE Administration Labetalol HCl 10 mg 06/21/21 18:00 06/23/21 00:22 Labetalol 20 Mg/4 Ml Inj IV 10 mg Q4HR PRN Administration Hypertension Methylprednisolone Sodium Succinate 40 mg 06/23/21 10:00 06/26/21 10:27 Methylprednisolone Sod Succinate 40 Mg/1 Ml Inj IV 40 mg Q12HR JOLENE Administration Metoclopramide HCl 10 mg 06/11/21 20:42 Metoclopramide 10 Mg/2 Ml Inj IV Q6H PRN Nausea And Vomiting Ondansetron HCl 4 mg 06/11/21 20:42 Ondansetron 4 Mg/2 Ml Inj IV Q3H PRN Nausea And Vomiting Senna 17.6 mg 06/20/21 10:00 06/26/21 10:28 Sennosides Oral Liqd 8.8 Mg/5 Ml Oral Liqd PO 17.6 mg Q12HR JOLENE Administration Simple Syrup 15 ml 06/19/21 19:20 Simple Syrup 15 Ml FEEDTUBE PRN PRN Hypoglycemia Simple Syrup 30 ml 06/19/21 19:20 Simple Syrup 15 Ml FEEDTUBE PRN PRN Hypoglycemia Sodium Bicarbonate 325 mg 06/19/21 19:20 Sodium Bicarbonate 325 Mg Tab FEEDTUBE PRN PRN For Clogged Feeding Tube Sodium Chloride 10 ml 06/11/21 22:00 06/26/21 10:27 Sodium Chloride 0.9% 10 Ml Flush Syringe IV 10 ml BID JOLENE Administration Sodium Chloride 10 ml 06/11/21 20:42 Sodium Chloride 0.9% 10 Ml Flush Syringe IV PRN PRN LINE FLUSH Nutrition/Malnutrition Assess - Dietary Evaluation Nutrition/Malnutrition Findings: Nutrition Notes Start: 06/16/21 12:10 Freq: Status: Active Protocol: Document 06/23/21 09:54 CANDIDO (Rec: 06/23/21 10:20 CANDDIO [id number]) Nutrition Notes Initial or Follow up Reassessment Current Diagnosis Diabetes,Sepsis,Hypertension, Respiratory Failure Other Pertinent Diagnosis Jeremiah's Angina, (R) Pneumothorax, Coagulopathy, s/ pCardiac Arrest, Gout... Current Diet TF-Vital AF 1.2 Quan @ 50 ml/hr (since D 06/21). Labs/Tests 06/22: Na 151, Cl 118.7, BUN 57, Glu 238, Ca 8.0, Mg 2.7. Pertinent Medications 06/23: Insulin, others nutritionally unremarkable. Height 5 ft 8 in Weight 109.316 kg [place] Body Weight (kg) 63.63 BMI 36.6 Weight change and time frame No body weight change reported . Weight Status Obese Subjective/Other Information RD consult for write/manage TF . TF continues as prescribed. Pt continues on Mechanical Ventilation, but is awake and responsive. Pt awaiting transfer to tertiary center. Pt continues with hypernatremia. Percent of energy/protein needs met: Prescribed Vital AF 1.2 Quan @ 50 ml/hr provides for energy/ protein needs (1,440 Kcal/90 g ) during LOS; 105% Kcal and 71 % AA. Burn Absent Trauma Absent GI Symptoms Other Difficulty In Swallowing,Chewing Food Allergy No Skin Integrity/Comment Surgical wounds. Current % PO Other Minimum of two criteria No #1 Nutrition Diagnosis Inadequate oral intake Diagnosis Progress(for reassessment Continues documentation) Is patient on ventilator? Yes Is Patient Ambulatory and/or Out of Bed No REE-([facility]-confined to bed) 0019.074 Calculation Used for Recommendations 65-70% energy needs Additional Notes Energy needs: 1280-1379kcal/ day Pro needs 2g/kg IBW: 127g/day Fluid needs 1ml/kcal Nutrition Intervention Nutrition Support: Continue Vital AF 1.2 Quan @ 50 ml/hr. Flush: 200 ml water Q 4 hr. When hypernatermia resolved, provide 80 ml water flush Q 4 hr. Kcal 1,440 Protein (gm) 90 Carbohydrates (gm) 133 Fat (gm) 65 Fluid (mL) 973 Fiber (gm) 6 % RDI: 105% Kcal; 71% AA. Goal #1 Provide at least 75% of energy /protein needs through Enteral Feeding during LOS. Goal #2 Maintain body weight within +/ -3% of admission body weight during LOS. Follow-Up By: 06/27/21 Additional Comments Continue monitoring Mechanical Ventilation, Na/Flush, TF tolerance and BM.
--- NOTE | 2021-06-22 13:07 | Progress Note ---
Assessment and Plan 76-year-old female status post emergency tracheostomy due to loss of airway from levels angina. Status post formal tracheostomy and percutaneous gastrostomy tube. Residual pneumothorax on right side stable. Afebrile and stable. Continue supportive care. Awaiting transfer to tertiary center. Subjective Date of service: 06/22/21 Narrative: No acute events overnight. Patient is able to follow commands and tries to communicate. Objective Vital Signs - 12hr 06/22/21 06/22/21 06/22/21 01:14 01:15 01:31 Temperature Pulse Rate 86 86 88 Pulse Rate [ From Monitor] Respiratory 18 19 Rate Blood Pressure 146/81 146/81 146/81 O2 Sat by Pulse 99 99 99 Oximetry O2 Sat by Pulse Oximetry [ Assessment] 06/22/21 06/22/21 06/22/21 01:45 02:00 02:15 Temperature Pulse Rate 86 84 83 Pulse Rate [ From Monitor] Respiratory 21 18 18 Rate Blood Pressure 146/81 159/75 159/75 O2 Sat by Pulse 99 99 99 Oximetry O2 Sat by Pulse Oximetry [ Assessment] 06/22/21 06/22/21 06/22/21 02:31 02:45 03:01 Temperature Pulse Rate 81 84 98 H Pulse Rate [ From Monitor] Respiratory 18 18 15 Rate Blood Pressure 159/75 159/75 160/76 O2 Sat by Pulse 99 99 99 Oximetry O2 Sat by Pulse Oximetry [ Assessment] 06/22/21 06/22/21 06/22/21 03:15 03:31 03:45 Temperature Pulse Rate 95 H 104 H 93 H Pulse Rate [ From Monitor] Respiratory 8 L 38 H 15 Rate Blood Pressure 160/76 160/76 160/76 O2 Sat by Pulse 98 100 98 Oximetry O2 Sat by Pulse Oximetry [ Assessment] 06/22/21 06/22/21 06/22/21 04:00 04:15 04:31 Temperature 100.1 F H Pulse Rate 91 H 86 82 Pulse Rate [ 85 From Monitor] Respiratory 14 17 18 Rate Blood Pressure 162/85 162/85 162/85 O2 Sat by Pulse 98 98 99 Oximetry O2 Sat by Pulse Oximetry [ Assessment] 06/22/21 06/22/21 06/22/21 04:45 05:00 05:15 Temperature Pulse Rate 81 78 75 Pulse Rate [ From Monitor] Respiratory 35 H 18 18 Rate Blood Pressure 162/85 146/76 146/76 O2 Sat by Pulse 100 99 99 Oximetry O2 Sat by Pulse Oximetry [ Assessment] 06/22/21 06/22/21 06/22/21 05:31 05:45 06:01 Temperature Pulse Rate 74 76 81 Pulse Rate [ From Monitor] Respiratory 18 17 18 Rate Blood Pressure 146/76 146/76 143/77 O2 Sat by Pulse 100 100 100 Oximetry O2 Sat by Pulse Oximetry [ Assessment] 06/22/21 06/22/21 06/22/21 06:06 06:15 06:31 Temperature Pulse Rate 79 74 79 Pulse Rate [ From Monitor] Respiratory 18 18 Rate Blood Pressure 143/77 143/77 143/77 O2 Sat by Pulse 100 100 100 Oximetry O2 Sat by Pulse Oximetry [ Assessment] 06/22/21 06/22/21 06/22/21 06:45 07:00 07:15 Temperature Pulse Rate 82 83 83 Pulse Rate [ From Monitor] Respiratory 16 14 18 Rate Blood Pressure 143/77 178/92 178/92 O2 Sat by Pulse 98 100 Oximetry O2 Sat by Pulse Oximetry [ Assessment] 06/22/21 06/22/21 06/22/21 07:26 07:27 07:31 Temperature Pulse Rate 82 81 Pulse Rate [ 82 From Monitor] Respiratory 19 18 Rate Blood Pressure 178/92 O2 Sat by Pulse 100 100 Oximetry O2 Sat by Pulse Oximetry [ Assessment] 06/22/21 06/22/21 06/22/21 07:45 08:00 08:15 Temperature Pulse Rate 80 96 H 80 Pulse Rate [ From Monitor] Respiratory 18 17 15 Rate Blood Pressure 178/92 190/82 179/92 O2 Sat by Pulse 100 98 98 Oximetry O2 Sat by Pulse 100 Oximetry [ Assessment] 06/22/21 06/22/21 06/22/21 08:18 08:31 08:33 Temperature 98.4 F Pulse Rate 95 H 84 Pulse Rate [ From Monitor] Respiratory 19 Rate Blood Pressure 179/92 188/74 O2 Sat by Pulse Oximetry O2 Sat by Pulse Oximetry [ Assessment] 06/22/21 06/22/21 06/22/21 08:45 09:00 09:15 Temperature Pulse Rate 84 91 H 71 Pulse Rate [ From Monitor] Respiratory 13 16 18 Rate Blood Pressure 179/92 178/88 178/88 O2 Sat by Pulse 98 100 98 Oximetry O2 Sat by Pulse Oximetry [ Assessment] 06/22/21 06/22/21 06/22/21 09:31 09:45 09:51 Temperature Pulse Rate 79 78 78 Pulse Rate [ From Monitor] Respiratory 18 18 Rate Blood Pressure 178/88 178/88 157/60 O2 Sat by Pulse 99 99 Oximetry O2 Sat by Pulse Oximetry [ Assessment] 06/22/21 06/22/21 06/22/21 10:00 10:15 10:31 Temperature Pulse Rate 76 88 93 H Pulse Rate [ From Monitor] Respiratory 20 20 21 Rate Blood Pressure 175/71 175/71 175/71 O2 Sat by Pulse 99 100 99 Oximetry O2 Sat by Pulse Oximetry [ Assessment] 06/22/21 06/22/21 06/22/21 10:45 11:00 11:15 Temperature Pulse Rate 84 88 85 Pulse Rate [ From Monitor] Respiratory 15 17 14 Rate Blood Pressure 175/71 176/77 176/77 O2 Sat by Pulse 99 100 100 Oximetry O2 Sat by Pulse Oximetry [ Assessment] 06/22/21 06/22/21 06/22/21 11:31 11:45 12:00 Temperature Pulse Rate 104 H 111 H 85 Pulse Rate [ 84 From Monitor] Respiratory 18 18 18 Rate Blood Pressure 176/77 176/77 155/61 O2 Sat by Pulse 100 99 99 Oximetry O2 Sat by Pulse Oximetry [ Assessment] - General physical appearance no distress, no pain, obese - Respiratory normal expansion, normal respiratory effort, other (Tracheostomy in place, good air exchange in the ventilator. Right chest tube with no air leak to suction) - Abdomen soft, not tender - Labs 06/22/21 04:30 06/22/21 04:30 Diabetes panel 06/22/21 Range/Units 04:30 Sodium 151 H (137-145) mmol/L Potassium 3.8 (3.6-5.0) mmol/L Chloride 118.7 H (98-107) mmol/L Carbon Dioxide 22 (22-30) mmol/L BUN 57 H (7-17) mg/dL Creatinine 1.2 (0.6-1.2) mg/dL Glucose 238 H (65-100) mg/dL Calcium 8.0 L (8.4-10.2) mg/dL Calcium panel 06/22/21 Range/Units 04:30 Calcium 8.0 L (8.4-10.2) mg/dL Phosphorus 2.60 (2.5-4.5) mg/dL Pituitary panel 06/22/21 Range/Units 04:30 Sodium 151 H (137-145) mmol/L Potassium 3.8 (3.6-5.0) mmol/L Chloride 118.7 H (98-107) mmol/L Carbon Dioxide 22 (22-30) mmol/L BUN 57 H (7-17) mg/dL Creatinine 1.2 (0.6-1.2) mg/dL Glucose 238 H (65-100) mg/dL Calcium 8.0 L (8.4-10.2) mg/dL Adrenal panel 06/22/21 Range/Units 04:30 Sodium 151 H (137-145) mmol/L Potassium 3.8 (3.6-5.0) mmol/L Chloride 118.7 H (98-107) mmol/L Carbon Dioxide 22 (22-30) mmol/L BUN 57 H (7-17) mg/dL Creatinine 1.2 (0.6-1.2) mg/dL Glucose 238 H (65-100) mg/dL Calcium 8.0 L (8.4-10.2) mg/dL
[2021-06-22 15:16] LABS: Hematocrit 22.5 % (30.3-42.9); Hemoglobin 7.4 gm/dl (10.1-14.3)
[2021-06-22] MEDS: HYDROmorphone 1 MG/1 ML INJ IV PRN ×2 (16:18→22:18)
[2021-06-22] MEDS: hydrALAZINE 100 MG TAB FEEDTUBE SCH ×2 (19:45→21:13)
[2021-06-23] MEDS: INSULIN LISPRO 100 UNIT/ML SUB-Q SCH ×4 (00:21→17:05)
[2021-06-23] MEDS: PIPERACILLIN/TAZOBACTAM 3.375 3.375 GM/50 ML BAG IV SCH ×4 (00:21→17:04)
[2021-06-23] MEDS: FREE WATER PO SCH ×6 (02:44→21:10)
[2021-06-23] MEDS: fentaNYL DRIP Premix 2,000 MCG/100 ML BAG IV SCH ×5 (02:44→20:54)
[2021-06-23] MEDS: hydrALAZINE 100 MG TAB FEEDTUBE SCH ×3 (05:50→22:15)
[2021-06-23] MEDS: SENNOSIDES ORAL LIQD 8.8 MG/5 ML ORAL LIQD PO SCH ×2 (09:00→21:10)
[2021-06-23] MEDS: INSULIN GLARGINE 100 UNITS/ML SUB-Q SCH ×2 (09:00→21:10)
[2021-06-23] MEDS: methylPREDNISolone Sod Succinate 40 MG/1 ML INJ IV SCH ×2 (09:00→21:10)
[2021-06-23] MEDS: DOCUSATE SODIUM 100 MG/10 ML ORAL LIQD PO SCH ×2 (09:00→21:09)
[2021-06-23] MEDS: FAMOTIDINE 20 MG/2 ML INJ IV SCH ×2 (09:00→21:10)
--- NOTE | 2021-06-23 09:28 | Progress Note ---
Assessment and Plan - Patient Problems (1) Subcutaneous emphysema after procedure Current Visit: Yes Status: Acute (2) Acute blood loss anemia Current Visit: Yes Status: Acute (3) Acute respiratory failure with hypoxia Current Visit: Yes Status: Acute (4) Ludwigs angina Current Visit: Yes Status: Acute (5) Narrowing of airway Current Visit: Yes Status: Acute (6) Pneumothorax, right Current Visit: Yes Status: Acute (7) Sepsis Current Visit: Yes Status: Acute (8) Tracheostomy care Current Visit: Yes Status: Acute (9) Type 2 diabetes mellitus Current Visit: Yes Status: Chronic Qualifiers: Diabetes mellitus usp insulin use: without usp use (10) Pneumothorax Current Visit: Yes Status: Acute Subjective Interval history: following simple commands. awake and responsive trach in place Ac18 p6 fio2 30 tv 450 Objective Vital Signs - 12hr 06/22/21 06/22/21 06/22/21 21:31 22:00 22:31 Temperature Pulse Rate 91 H 119 H 104 H Pulse Rate [ From Monitor] Respiratory 18 19 18 Rate Blood Pressure 174/75 189/80 162/71 O2 Sat by Pulse 99 99 99 Oximetry O2 Sat by Pulse Oximetry [ Assessment] 06/22/21 06/22/21 06/22/21 23:00 23:31 23:37 Temperature Pulse Rate 114 H 108 H 112 H Pulse Rate [ From Monitor] Respiratory 17 17 24 Rate Blood Pressure 174/79 174/79 174/79 O2 Sat by Pulse 100 99 97 Oximetry O2 Sat by Pulse Oximetry [ Assessment] 06/23/21 06/23/21 06/23/21 00:00 00:17 00:22 Temperature 98.8 F Pulse Rate 111 H 116 H 116 H Pulse Rate [ 84 From Monitor] Respiratory 19 Rate Blood Pressure 173/74 173/74 173/74 O2 Sat by Pulse 99 99 Oximetry O2 Sat by Pulse Oximetry [ Assessment] 06/23/21 06/23/21 06/23/21 00:31 01:00 01:31 Temperature Pulse Rate 88 88 82 Pulse Rate [ From Monitor] Respiratory 15 16 19 Rate Blood Pressure 173/74 189/81 176/74 O2 Sat by Pulse 99 100 100 Oximetry O2 Sat by Pulse Oximetry [ Assessment] 06/23/21 06/23/21 06/23/21 02:00 02:31 03:00 Temperature Pulse Rate 91 H 92 H 88 Pulse Rate [ From Monitor] Respiratory 15 21 15 Rate Blood Pressure 170/70 170/70 152/77 O2 Sat by Pulse 100 100 100 Oximetry O2 Sat by Pulse Oximetry [ Assessment] 06/23/21 06/23/21 06/23/21 03:31 04:00 04:01 Temperature 99.8 F H Pulse Rate 82 82 75 Pulse Rate [ 84 From Monitor] Respiratory 16 18 15 Rate Blood Pressure 152/77 121/49 O2 Sat by Pulse 100 100 99 Oximetry O2 Sat by Pulse Oximetry [ Assessment] 06/23/21 06/23/21 06/23/21 04:31 04:55 05:00 Temperature Pulse Rate 74 81 81 Pulse Rate [ From Monitor] Respiratory 18 15 Rate Blood Pressure 121/49 121/49 140/65 O2 Sat by Pulse 99 99 100 Oximetry O2 Sat by Pulse Oximetry [ Assessment] 06/23/21 06/23/21 06/23/21 05:31 06:00 06:31 Temperature Pulse Rate 76 85 90 Pulse Rate [ From Monitor] Respiratory 19 15 26 H Rate Blood Pressure 140/65 139/52 139/52 O2 Sat by Pulse 99 100 98 Oximetry O2 Sat by Pulse Oximetry [ Assessment] 06/23/21 06/23/21 06/23/21 07:00 07:23 07:31 Temperature 99.2 F Pulse Rate 87 102 H Pulse Rate [ From Monitor] Respiratory 22 13 Rate Blood Pressure 132/53 132/53 O2 Sat by Pulse 98 99 Oximetry O2 Sat by Pulse 107 H Oximetry [ Assessment] 06/23/21 06/23/21 06/23/21 07:38 08:00 08:01 Temperature Pulse Rate 103 H 88 105 H Pulse Rate [ 88 From Monitor] Respiratory 24 16 Rate Blood Pressure 132/53 157/75 O2 Sat by Pulse 99 98 99 Oximetry O2 Sat by Pulse Oximetry [ Assessment] Constitutional: alert, other (on vent trach in place) Eyes: non-icteric ENT: oropharynx moist Neck: other (trach in place) Ascultation: Bilateral: clear Percussion: Bilateral: not dull Cardiovascular: regular rate and rhythm Gastrointestinal: normoactive bowel sounds, soft Integumentary: other (subq emphysema) Extremities: no edema, other (subq emphysema) Neurologic: normal mental status CBC and BMP: 06/22/21 14:20 06/22/21 04:30 ABG, PT/INR, D-dimer: ABG ABG pH 7.426 pH Units (7.350-7.450) 06/21/21 04:20 POC ABG pCO2 25.6 mmHg (32.0-48.0) L 06/13/21 04:31 ABG pCO2 35.1 mm Hg 06/21/21 04:20 POC ABG pO2 138.8 mmHg (83-108) H 06/13/21 04:31 ABG pO2 98.5 mm Hg (80.0-90.0) H 06/21/21 04:20 POC ABG HCO3 21.4 06/13/21 04:31 ABG O2 Saturation 97.7 % (95.0-99.0) 06/21/21 04:20 PT/INR, D-dimer PT 18.3 Sec. (12.2-14.9) H 06/20/21 04:33 INR 1.37 (0.87-1.13) H 06/20/21 04:33 D-Dimer 1244.63 ng/mlDDU (0-234) H 06/13/21 Unknown Abnormal lab findings: Abnormal Labs 06/11/21 06/11/21 06/11/21 15:23 15:23 19:20 WBC 12.0 H RBC Hgb Hct MCV 72 L MCH 21 L RDW 17.5 H Plt Count Lymph % (Auto) 12.9 L Drew % (Auto) 8.6 H Lymph # (Auto) Drew # (Auto) 1.0 H Seg Neutrophils % 77.4 H Seg Neuts % (Manual) Lymphocytes % (Manual) Monocytes % (Manual) Seg Neutrophils # 9.3 H Seg Neutrophils # Man Lymphocytes # (Manual) Monocytes # (Manual) PT INR APTT Fibrinogen D-Dimer ABG pH POC ABG pCO2 POC ABG pO2 ABG pO2 ABG HCO3 ABG O2 Saturation ABG Base Excess ABG Hemoglobin ABG Oxyhemoglobin Oxyhemoglobin Sodium Potassium Chloride Carbon Dioxide BUN Creatinine Glucose 144 H POC Glucose Lactic Acid Calcium Phosphorus Magnesium AST ALT Alkaline Phosphatase C-Reactive Protein Total Protein Albumin Triglycerides Ur Specific [place] Urine Creatinine Crossmatch See Detail 06/11/21 06/11/21 06/11/21 19:29 19:29 23:21 WBC 15.8 H RBC Hgb 9.4 L Hct MCV 72 L MCH 22 L RDW 17.4 H Plt Count Lymph % (Auto) 9.2 L Drew % (Auto) Lymph # (Auto) Drew # (Auto) Seg Neutrophils % 89.0 H Seg Neuts % (Manual) Lymphocytes % (Manual) Monocytes % (Manual) Seg Neutrophils # 14.0 H Seg Neutrophils # Man Lymphocytes # (Manual) Monocytes # (Manual) PT 72.9 H INR 8.18 H* APTT 71.7 H* Fibrinogen D-Dimer ABG pH POC ABG pCO2 POC ABG pO2 ABG pO2 ABG HCO3 ABG O2 Saturation ABG Base Excess ABG Hemoglobin ABG Oxyhemoglobin Oxyhemoglobin Sodium 149 H D Potassium Chloride 124.3 H Carbon Dioxide 8 L* D BUN Creatinine 0.3 L Glucose 628 H* POC Glucose Lactic Acid Calcium 2.4 L* D Phosphorus Magnesium AST ALT < 5 L Alkaline Phosphatase 19 L C-Reactive Protein Total Protein 1.6 L D Albumin 0.8 L Triglycerides Ur Specific [place] Urine Creatinine Crossmatch 06/11/21 06/11/21 06/11/21 23:21 23:22 23:42 WBC RBC Hgb Hct MCV MCH 27 L RDW 22.2 H Plt Count 131 L Lymph % (Auto) Drew % (Auto) Lymph # (Auto) Drew # (Auto) Seg Neutrophils % Seg Neuts % (Manual) Lymphocytes % (Manual) Monocytes % (Manual) Seg Neutrophils # Seg Neutrophils # Man Lymphocytes # (Manual) Monocytes # (Manual) PT 46.3 H INR 4.55 H APTT 54.8 H Fibrinogen D-Dimer ABG pH POC ABG pCO2 POC ABG pO2 325.9 H ABG pO2 ABG HCO3 ABG O2 Saturation ABG Base Excess ABG Hemoglobin 8.0 L ABG Oxyhemoglobin 99.0 H Oxyhemoglobin Sodium Potassium Chloride Carbon Dioxide BUN Creatinine Glucose POC Glucose Lactic Acid Calcium Phosphorus Magnesium AST ALT Alkaline Phosphatase C-Reactive Protein Total Protein Albumin Triglycerides Ur Specific [place] Urine Creatinine Crossmatch 06/12/21 06/12/21 06/12/21 01:45 01:45 01:45 WBC 21.6 H RBC 3.04 L Hgb 6.7 L D Hct 22.4 L D MCV 74 L MCH 22 L RDW 18.9 H Plt Count Lymph % (Auto) Drew % (Auto) Lymph # (Auto) Drew # (Auto) Seg Neutrophils % Seg Neuts % (Manual) 76.0 H Lymphocytes % (Manual) 2.0 L Monocytes % (Manual) 8.0 H Seg Neutrophils # Seg Neutrophils # Man 16.4 H Lymphocytes # (Manual) 0.4 L Monocytes # (Manual) 1.7 H PT 25.4 H INR 2.10 H APTT Fibrinogen D-Dimer ABG pH POC ABG pCO2 POC ABG pO2 ABG pO2 ABG HCO3 ABG O2 Saturation ABG Base Excess ABG Hemoglobin ABG Oxyhemoglobin Oxyhemoglobin Sodium Potassium 5.6 H D Chloride Carbon Dioxide 20 L D BUN Creatinine Glucose 368 H POC Glucose Lactic Acid Calcium 7.1 L D Phosphorus Magnesium AST ALT Alkaline Phosphatase C-Reactive Protein Total Protein 5.3 L D Albumin 3.1 L Triglycerides Ur Specific [place] Urine Creatinine Crossmatch 06/12/21 06/12/21 06/12/21 02:05 04:41 11:05 WBC 14.6 H RBC 3.52 L Hgb 8.5 L Hct 27.7 L MCV MCH 24 L RDW 20.9 H Plt Count Lymph % (Auto) Drew % (Auto) Lymph # (Auto) Drew # (Auto) Seg Neutrophils % Seg Neuts % (Manual) Lymphocytes % (Manual) Monocytes % (Manual) Seg Neutrophils # Seg Neutrophils # Man Lymphocytes # (Manual) Monocytes # (Manual) PT INR APTT Fibrinogen D-Dimer ABG pH POC ABG pCO2 POC ABG pO2 224.6 H ABG pO2 ABG HCO3 ABG O2 Saturation ABG Base Excess ABG Hemoglobin 7.3 L ABG Oxyhemoglobin 98.7 H Oxyhemoglobin Sodium Potassium Chloride Carbon Dioxide BUN Creatinine Glucose POC Glucose 308 H Lactic Acid Calcium Phosphorus Magnesium AST ALT Alkaline Phosphatase C-Reactive Protein Total Protein Albumin Triglycerides Ur Specific [place] Urine Creatinine Crossmatch 06/12/21 06/12/21 06/12/21 11:05 11:05 12:18 WBC RBC Hgb Hct MCV MCH RDW Plt Count Lymph % (Auto) Drew % (Auto) Lymph # (Auto) Drew # (Auto) Seg Neutrophils % Seg Neuts % (Manual) Lymphocytes % (Manual) Monocytes % (Manual) Seg Neutrophils # Seg Neutrophils # Man Lymphocytes # (Manual) Monocytes # (Manual) PT 16.8 H INR 1.23 H APTT Fibrinogen D-Dimer ABG pH POC ABG pCO2 POC ABG pO2 ABG pO2 ABG HCO3 ABG O2 Saturation ABG Base Excess ABG Hemoglobin ABG Oxyhemoglobin Oxyhemoglobin Sodium Potassium Chloride Carbon Dioxide BUN 24 H Creatinine Glucose 324 H POC Glucose 281 H Lactic Acid Calcium 7.5 L Phosphorus Magnesium AST 70 H ALT 57 H Alkaline Phosphatase C-Reactive Protein Total Protein 6.0 L Albumin 3.6 L Triglycerides Ur Specific [place] Urine Creatinine Crossmatch 06/12/21 06/12/21 06/12/21 17:00 17:00 17:00 WBC RBC Hgb 7.5 L Hct 24.0 L MCV MCH RDW Plt Count Lymph % (Auto) Drew % (Auto) Lymph # (Auto) Drew # (Auto) Seg Neutrophils % Seg Neuts % (Manual) Lymphocytes % (Manual) Monocytes % (Manual) Seg Neutrophils # Seg Neutrophils # Man Lymphocytes # (Manual) Monocytes # (Manual) PT 16.0 H INR 1.16 H APTT Fibrinogen D-Dimer ABG pH POC ABG pCO2 POC ABG pO2 ABG pO2 ABG HCO3 ABG O2 Saturation ABG Base Excess ABG Hemoglobin ABG Oxyhemoglobin Oxyhemoglobin Sodium Potassium Chloride Carbon Dioxide BUN Creatinine Glucose POC Glucose Lactic Acid Calcium Phosphorus Magnesium AST ALT Alkaline Phosphatase C-Reactive Protein Total Protein Albumin Triglycerides Ur Specific [place] 1.035 H Urine Creatinine Crossmatch 06/12/21 06/12/21 06/12/21 18:06 23:00 23:05 WBC RBC Hgb 7.6 L Hct 23.5 L MCV MCH RDW Plt Count Lymph % (Auto) Drew % (Auto) Lymph # (Auto) Drew # (Auto) Seg Neutrophils % Seg Neuts % (Manual) Lymphocytes % (Manual) Monocytes % (Manual) Seg Neutrophils # Seg Neutrophils # Man Lymphocytes # (Manual) Monocytes # (Manual) PT INR APTT Fibrinogen D-Dimer ABG pH POC ABG pCO2 POC ABG pO2 ABG pO2 ABG HCO3 ABG O2 Saturation ABG Base Excess ABG Hemoglobin ABG Oxyhemoglobin Oxyhemoglobin Sodium Potassium Chloride Carbon Dioxide BUN Creatinine Glucose POC Glucose 257 H 300 H Lactic Acid Calcium Phosphorus Magnesium AST ALT Alkaline Phosphatase C-Reactive Protein Total Protein Albumin Triglycerides Ur Specific [place] Urine Creatinine Crossmatch 06/13/21 06/13/21 06/13/21 04:31 05:19 07:30 WBC RBC Hgb 6.8 L Hct 21.7 L MCV MCH RDW Plt Count Lymph % (Auto) Drew % (Auto) Lymph # (Auto) Drew # (Auto) Seg Neutrophils % Seg Neuts % (Manual) Lymphocytes % (Manual) Monocytes % (Manual) Seg Neutrophils # Seg Neutrophils # Man Lymphocytes # (Manual) Monocytes # (Manual) PT INR APTT Fibrinogen D-Dimer ABG pH 7.541 H POC ABG pCO2 25.6 L POC ABG pO2 138.8 H ABG pO2 ABG HCO3 ABG O2 Saturation ABG Base Excess ABG Hemoglobin 7.3 L ABG Oxyhemoglobin 98.1 H Oxyhemoglobin Sodium Potassium Chloride Carbon Dioxide BUN Creatinine Glucose POC Glucose 286 H Lactic Acid Calcium Phosphorus Magnesium AST ALT Alkaline Phosphatase C-Reactive Protein Total Protein Albumin Triglycerides Ur Specific [place] Urine Creatinine Crossmatch 06/13/21 06/13/21 06/13/21 07:30 12:04 14:50 WBC RBC Hgb Hct MCV MCH RDW Plt Count Lymph % (Auto) Drew % (Auto) Lymph # (Auto) Drew # (Auto) Seg Neutrophils % Seg Neuts % (Manual) Lymphocytes % (Manual) Monocytes % (Manual) Seg Neutrophils # Seg Neutrophils # Man Lymphocytes # (Manual) Monocytes # (Manual) PT INR APTT Fibrinogen D-Dimer ABG pH 7.039 L* 7.182 L* POC ABG pCO2 POC ABG pO2 ABG pO2 63.1 L ABG HCO3 17.4 L ABG O2 Saturation 73.4 L ABG Base Excess -12.6 L -7.1 L ABG Hemoglobin 7.7 L 6.9 L ABG Oxyhemoglobin Oxyhemoglobin 71.8 L 93.5 L Sodium Potassium Chloride 108.9 H Carbon Dioxide BUN 28 H Creatinine Glucose 293 H POC Glucose Lactic Acid Calcium 7.2 L Phosphorus Magnesium AST 106 H ALT 92 H Alkaline Phosphatase C-Reactive Protein Total Protein 5.6 L Albumin 3.3 L Triglycerides Ur Specific [place] Urine Creatinine Crossmatch 06/13/21 06/13/21 06/13/21 14:54 15:45 17:34 WBC RBC Hgb Hct MCV MCH RDW Plt Count Lymph % (Auto) Drew % (Auto) Lymph # (Auto) Drew # (Auto) Seg Neutrophils % Seg Neuts % (Manual) Lymphocytes % (Manual) Monocytes % (Manual) Seg Neutrophils # Seg Neutrophils # Man Lymphocytes # (Manual) Monocytes # (Manual) PT INR APTT Fibrinogen D-Dimer ABG pH POC ABG pCO2 POC ABG pO2 ABG pO2 178.4 H ABG HCO3 ABG O2 Saturation 99.1 H ABG Base Excess ABG Hemoglobin 8.0 L ABG Oxyhemoglobin Oxyhemoglobin Sodium Potassium Chloride 107.3 H Carbon Dioxide 19 L BUN 33 H Creatinine 1.5 H Glucose 379 H POC Glucose Lactic Acid 5.30 H* Calcium 6.8 L Phosphorus Magnesium AST ALT Alkaline Phosphatase C-Reactive Protein Total Protein Albumin Triglycerides Ur Specific [place] Urine Creatinine Crossmatch 06/13/21 06/13/21 06/13/21 17:40 23:29 Unknown WBC 22.5 H RBC 3.16 L Hgb 8.0 L Hct 26.0 L MCV MCH 26 L RDW 21.4 H Plt Count Lymph % (Auto) Drew % (Auto) Lymph # (Auto) Drew # (Auto) Seg Neutrophils % Seg Neuts % (Manual) 88.0 H Lymphocytes % (Manual) 4.0 L Monocytes % (Manual) Seg Neutrophils # Seg Neutrophils # Man 19.8 H Lymphocytes # (Manual) 0.9 L Monocytes # (Manual) 1.4 H PT INR APTT Fibrinogen D-Dimer ABG pH POC ABG pCO2 POC ABG pO2 ABG pO2 ABG HCO3 ABG O2 Saturation ABG Base Excess ABG Hemoglobin ABG Oxyhemoglobin Oxyhemoglobin Sodium Potassium Chloride Carbon Dioxide BUN Creatinine Glucose POC Glucose 294 H 288 H Lactic Acid Calcium Phosphorus Magnesium AST ALT Alkaline Phosphatase C-Reactive Protein Total Protein Albumin Triglycerides Ur Specific [place] Urine Creatinine Crossmatch 06/13/21 06/14/21 06/14/21 Unknown 05:39 06:15 WBC RBC 2.93 L Hgb 7.2 L Hct 23.2 L MCV MCH 25 L RDW 21.2 H Plt Count Lymph % (Auto) Drew % (Auto) Lymph # (Auto) Drew # (Auto) Seg Neutrophils % Seg Neuts % (Manual) Lymphocytes % (Manual) Monocytes % (Manual) Seg Neutrophils # Seg Neutrophils # Man Lymphocytes # (Manual) Monocytes # (Manual) PT 17.6 H INR 1.31 H APTT Fibrinogen 546 H D-Dimer 1244.63 H ABG pH POC ABG pCO2 POC ABG pO2 ABG pO2 ABG HCO3 ABG O2 Saturation ABG Base Excess ABG Hemoglobin ABG Oxyhemoglobin Oxyhemoglobin Sodium Potassium Chloride Carbon Dioxide BUN Creatinine Glucose POC Glucose 246 H Lactic Acid Calcium Phosphorus Magnesium AST ALT Alkaline Phosphatase C-Reactive Protein Total Protein Albumin Triglycerides Ur Specific [place] Urine Creatinine Crossmatch 06/14/21 06/14/21 06/14/21 06:15 06:15 09:13 WBC RBC Hgb Hct MCV MCH RDW Plt Count Lymph % (Auto) Drew % (Auto) Lymph # (Auto) Drew # (Auto) Seg Neutrophils % Seg Neuts % (Manual) Lymphocytes % (Manual) Monocytes % (Manual) Seg Neutrophils # Seg Neutrophils # Man Lymphocytes # (Manual) Monocytes # (Manual) PT INR APTT Fibrinogen D-Dimer ABG pH POC ABG pCO2 POC ABG pO2 ABG pO2 183.0 H ABG HCO3 ABG O2 Saturation 99.2 H ABG Base Excess ABG Hemoglobin 6.6 L ABG Oxyhemoglobin Oxyhemoglobin Sodium 147 H Potassium Chloride 112.5 H Carbon Dioxide 21 L BUN 36 H Creatinine 1.4 H Glucose 281 H POC Glucose Lactic Acid Calcium 6.9 L Phosphorus Magnesium AST ALT Alkaline Phosphatase C-Reactive Protein Total Protein Albumin Triglycerides 189 H Ur Specific [place] Urine Creatinine Crossmatch 06/14/21 06/14/21 06/14/21 10:45 12:16 13:30 WBC RBC Hgb 7.1 L Hct 22.3 L MCV MCH RDW Plt Count Lymph % (Auto) Drew % (Auto) Lymph # (Auto) Drew # (Auto) Seg Neutrophils % Seg Neuts % (Manual) Lymphocytes % (Manual) Monocytes % (Manual) Seg Neutrophils # Seg Neutrophils # Man Lymphocytes # (Manual) Monocytes # (Manual) PT INR APTT Fibrinogen D-Dimer ABG pH 7.205 L POC ABG pCO2 POC ABG pO2 ABG pO2 261.3 H ABG HCO3 ABG O2 Saturation 99.4 H ABG Base Excess -7.2 L ABG Hemoglobin 7.6 L ABG Oxyhemoglobin Oxyhemoglobin Sodium Potassium Chloride Carbon Dioxide BUN Creatinine Glucose POC Glucose 174 H Lactic Acid Calcium Phosphorus Magnesium AST ALT Alkaline Phosphatase C-Reactive Protein Total Protein Albumin Triglycerides Ur Specific [place] Urine Creatinine Crossmatch 06/14/21 06/14/21 06/15/21 17:40 18:43 00:06 WBC RBC Hgb Hct MCV MCH RDW Plt Count Lymph % (Auto) Drew % (Auto) Lymph # (Auto) Drew # (Auto) Seg Neutrophils % Seg Neuts % (Manual) Lymphocytes % (Manual) Monocytes % (Manual) Seg Neutrophils # Seg Neutrophils # Man Lymphocytes # (Manual) Monocytes # (Manual) PT INR APTT Fibrinogen D-Dimer ABG pH 7.292 L POC ABG pCO2 POC ABG pO2 ABG pO2 78.8 L ABG HCO3 ABG O2 Saturation ABG Base Excess -5.0 L ABG Hemoglobin 9.1 L ABG Oxyhemoglobin Oxyhemoglobin 93.7 L Sodium Potassium Chloride Carbon Dioxide BUN Creatinine Glucose POC Glucose 182 H 144 H Lactic Acid Calcium Phosphorus Magnesium AST ALT Alkaline Phosphatase C-Reactive Protein Total Protein Albumin Triglycerides Ur Specific [place] Urine Creatinine Crossmatch 06/15/21 06/15/21 06/15/21 03:55 03:56 10:40 WBC RBC Hgb 8.4 L Hct 25.8 L MCV MCH RDW Plt Count Lymph % (Auto) Drew % (Auto) Lymph # (Auto) Drew # (Auto) Seg Neutrophils % Seg Neuts % (Manual) Lymphocytes % (Manual) Monocytes % (Manual) Seg Neutrophils # Seg Neutrophils # Man Lymphocytes # (Manual) Monocytes # (Manual) PT INR APTT Fibrinogen D-Dimer ABG pH POC ABG pCO2 POC ABG pO2 ABG pO2 ABG HCO3 ABG O2 Saturation ABG Base Excess ABG Hemoglobin ABG Oxyhemoglobin Oxyhemoglobin Sodium 147 H Potassium Chloride 112.2 H Carbon Dioxide 21 L BUN 47 H Creatinine 1.9 H Glucose 272 H POC Glucose Lactic Acid Calcium 7.3 L Phosphorus Magnesium AST 64 H ALT 106 H Alkaline Phosphatase C-Reactive Protein Total Protein 5.1 L Albumin 2.9 L Triglycerides Ur Specific [place] Urine Creatinine 81.1 H Crossmatch 06/15/21 06/15/21 06/15/21 11:46 17:16 23:17 WBC RBC Hgb Hct MCV MCH RDW Plt Count Lymph % (Auto) Drew % (Auto) Lymph # (Auto) Drew # (Auto) Seg Neutrophils % Seg Neuts % (Manual) Lymphocytes % (Manual) Monocytes % (Manual) Seg Neutrophils # Seg Neutrophils # Man Lymphocytes # (Manual) Monocytes # (Manual) PT INR APTT Fibrinogen D-Dimer ABG pH POC ABG pCO2 POC ABG pO2 ABG pO2 ABG HCO3 ABG O2 Saturation ABG Base Excess ABG Hemoglobin ABG Oxyhemoglobin Oxyhemoglobin Sodium Potassium Chloride Carbon Dioxide BUN Creatinine Glucose POC Glucose 271 H 268 H 264 H Lactic Acid Calcium Phosphorus Magnesium AST ALT Alkaline Phosphatase C-Reactive Protein Total Protein Albumin Triglycerides Ur Specific [place] Urine Creatinine Crossmatch 06/15/21 06/15/21 06/16/21 Unknown Unknown 04:32 WBC RBC 3.21 L 3.16 L Hgb 8.4 L 8.2 L Hct 26.1 L 25.4 L MCV MCH 26 L 26 L RDW 21.3 H 21.2 H Plt Count 105 L 118 L Lymph % (Auto) Drew % (Auto) Lymph # (Auto) Drew # (Auto) Seg Neutrophils % Seg Neuts % (Manual) Lymphocytes % (Manual) Monocytes % (Manual) Seg Neutrophils # Seg Neutrophils # Man Lymphocytes # (Manual) Monocytes # (Manual) PT INR APTT Fibrinogen D-Dimer ABG pH 7.465 H POC ABG pCO2 POC ABG pO2 ABG pO2 114.1 H ABG HCO3 ABG O2 Saturation ABG Base Excess ABG Hemoglobin 8.4 L ABG Oxyhemoglobin Oxyhemoglobin Sodium Potassium Chloride Carbon Dioxide BUN Creatinine Glucose POC Glucose Lactic Acid Calcium Phosphorus Magnesium AST ALT Alkaline Phosphatase C-Reactive Protein Total Protein Albumin Triglycerides Ur Specific [place] Urine Creatinine Crossmatch 06/16/21 06/16/21 06/16/21 04:32 04:32 05:08 WBC RBC Hgb Hct MCV MCH RDW Plt Count Lymph % (Auto) Drew % (Auto) Lymph # (Auto) Drew # (Auto) Seg Neutrophils % Seg Neuts % (Manual) Lymphocytes % (Manual) Monocytes % (Manual) Seg Neutrophils # Seg Neutrophils # Man Lymphocytes # (Manual) Monocytes # (Manual) PT INR APTT Fibrinogen D-Dimer ABG pH POC ABG pCO2 POC ABG pO2 ABG pO2 ABG HCO3 ABG O2 Saturation ABG Base Excess ABG Hemoglobin ABG Oxyhemoglobin Oxyhemoglobin Sodium 148 H Potassium 3.3 L Chloride 115.1 H Carbon Dioxide 21 L BUN 54 H Creatinine 1.6 H Glucose 367 H POC Glucose 356 H Lactic Acid Calcium 7.4 L Phosphorus Magnesium AST ALT Alkaline Phosphatase C-Reactive Protein 3.30 H Total Protein Albumin Triglycerides Ur Specific [place] Urine Creatinine Crossmatch 06/16/21 06/16/21 06/16/21 05:30 11:46 17:03 WBC RBC Hgb Hct MCV MCH RDW Plt Count Lymph % (Auto) Drew % (Auto) Lymph # (Auto) Drew # (Auto) Seg Neutrophils % Seg Neuts % (Manual) Lymphocytes % (Manual) Monocytes % (Manual) Seg Neutrophils # Seg Neutrophils # Man Lymphocytes # (Manual) Monocytes # (Manual) PT INR APTT Fibrinogen D-Dimer ABG pH 7.475 H POC ABG pCO2 POC ABG pO2 ABG pO2 171.8 H ABG HCO3 ABG O2 Saturation 99.1 H ABG Base Excess ABG Hemoglobin 11.7 L ABG Oxyhemoglobin Oxyhemoglobin Sodium Potassium Chloride Carbon Dioxide BUN Creatinine Glucose POC Glucose 309 H 345 H Lactic Acid Calcium Phosphorus Magnesium AST ALT Alkaline Phosphatase C-Reactive Protein Total Protein Albumin Triglycerides Ur Specific [place] Urine Creatinine Crossmatch 06/16/21 06/16/21 06/17/21 20:18 23:22 04:50 WBC RBC Hgb Hct MCV MCH RDW Plt Count Lymph % (Auto) Drew % (Auto) Lymph # (Auto) Drew # (Auto) Seg Neutrophils % Seg Neuts % (Manual) Lymphocytes % (Manual) Monocytes % (Manual) Seg Neutrophils # Seg Neutrophils # Man Lymphocytes # (Manual) Monocytes # (Manual) PT INR APTT Fibrinogen D-Dimer ABG pH 7.479 H POC ABG pCO2 POC ABG pO2 ABG pO2 143.1 H ABG HCO3 ABG O2 Saturation ABG Base Excess ABG Hemoglobin 10.0 L ABG Oxyhemoglobin Oxyhemoglobin Sodium Potassium Chloride Carbon Dioxide BUN Creatinine Glucose POC Glucose 325 H 315 H Lactic Acid Calcium Phosphorus Magnesium AST ALT Alkaline Phosphatase C-Reactive Protein Total Protein Albumin Triglycerides Ur Specific [place] Urine Creatinine Crossmatch 06/17/21 06/17/21 06/17/21 05:18 05:30 05:30 WBC RBC 3.17 L Hgb 8.2 L Hct 25.5 L MCV MCH 26 L RDW 21.2 H Plt Count 128 L Lymph % (Auto) Drew % (Auto) Lymph # (Auto) Drew # (Auto) Seg Neutrophils % Seg Neuts % (Manual) Lymphocytes % (Manual) Monocytes % (Manual) Seg Neutrophils # Seg Neutrophils # Man Lymphocytes # (Manual) Monocytes # (Manual) PT INR APTT Fibrinogen D-Dimer ABG pH POC ABG pCO2 POC ABG pO2 ABG pO2 ABG HCO3 ABG O2 Saturation ABG Base Excess ABG Hemoglobin ABG Oxyhemoglobin Oxyhemoglobin Sodium 148 H Potassium Chloride 113.7 H Carbon Dioxide 20 L BUN 57 H Creatinine 1.4 H Glucose 351 H POC Glucose 324 H Lactic Acid Calcium 8.0 L Phosphorus 2.30 L Magnesium AST ALT Alkaline Phosphatase C-Reactive Protein Total Protein Albumin Triglycerides Ur Specific [place] Urine Creatinine Crossmatch 06/17/21 06/17/21 06/17/21 11:49 17:43 21:42 WBC RBC Hgb Hct MCV MCH RDW Plt Count Lymph % (Auto) Drew % (Auto) Lymph # (Auto) Drew # (Auto) Seg Neutrophils % Seg Neuts % (Manual) Lymphocytes % (Manual) Monocytes % (Manual) Seg Neutrophils # Seg Neutrophils # Man Lymphocytes # (Manual) Monocytes # (Manual) PT INR APTT Fibrinogen D-Dimer ABG pH POC ABG pCO2 POC ABG pO2 ABG pO2 ABG HCO3 ABG O2 Saturation ABG Base Excess ABG Hemoglobin ABG Oxyhemoglobin Oxyhemoglobin Sodium Potassium Chloride Carbon Dioxide BUN Creatinine Glucose POC Glucose 305 H 307 H 286 H Lactic Acid Calcium Phosphorus Magnesium AST ALT Alkaline Phosphatase C-Reactive Protein Total Protein Albumin Triglycerides Ur Specific [place] Urine Creatinine Crossmatch 06/17/21 06/18/21 06/18/21 23:59 04:20 04:37 WBC RBC 3.53 L Hgb 9.1 L Hct 28.7 L MCV MCH 26 L RDW 21.3 H Plt Count Lymph % (Auto) Drew % (Auto) Lymph # (Auto) Drew # (Auto) Seg Neutrophils % Seg Neuts % (Manual) Lymphocytes % (Manual) Monocytes % (Manual) Seg Neutrophils # Seg Neutrophils # Man Lymphocytes # (Manual) Monocytes # (Manual) PT INR APTT Fibrinogen D-Dimer ABG pH 7.495 H POC ABG pCO2 POC ABG pO2 ABG pO2 108.3 H ABG HCO3 ABG O2 Saturation ABG Base Excess -2.1 L ABG Hemoglobin 10.0 L ABG Oxyhemoglobin Oxyhemoglobin Sodium Potassium Chloride Carbon Dioxide BUN Creatinine Glucose POC Glucose 264 H Lactic Acid Calcium Phosphorus Magnesium AST ALT Alkaline Phosphatase C-Reactive Protein Total Protein Albumin Triglycerides Ur Specific [place] Urine Creatinine Crossmatch 06/18/21 06/18/21 06/18/21 04:37 05:32 11:21 WBC RBC Hgb Hct MCV MCH RDW Plt Count Lymph % (Auto) Drew % (Auto) Lymph # (Auto) Drew # (Auto) Seg Neutrophils % Seg Neuts % (Manual) Lymphocytes % (Manual) Monocytes % (Manual) Seg Neutrophils # Seg Neutrophils # Man Lymphocytes # (Manual) Monocytes # (Manual) PT INR APTT Fibrinogen D-Dimer ABG pH POC ABG pCO2 POC ABG pO2 ABG pO2 ABG HCO3 ABG O2 Saturation ABG Base Excess ABG Hemoglobin ABG Oxyhemoglobin Oxyhemoglobin Sodium 148 H Potassium Chloride 114.7 H Carbon Dioxide BUN 59 H Creatinine 1.3 H Glucose 329 H POC Glucose 293 H 291 H Lactic Acid Calcium 8.1 L Phosphorus Magnesium AST ALT Alkaline Phosphatase C-Reactive Protein Total Protein Albumin Triglycerides Ur Specific [place] Urine Creatinine Crossmatch 06/18/21 06/18/21 06/19/21 18:21 21:46 00:15 WBC RBC Hgb Hct MCV MCH RDW Plt Count Lymph % (Auto) Drew % (Auto) Lymph # (Auto) Drew # (Auto) Seg Neutrophils % Seg Neuts % (Manual) Lymphocytes % (Manual) Monocytes % (Manual) Seg Neutrophils # Seg Neutrophils # Man Lymphocytes # (Manual) Monocytes # (Manual) PT INR APTT Fibrinogen D-Dimer ABG pH POC ABG pCO2 POC ABG pO2 ABG pO2 ABG HCO3 ABG O2 Saturation ABG Base Excess ABG Hemoglobin ABG Oxyhemoglobin Oxyhemoglobin Sodium Potassium Chloride Carbon Dioxide BUN Creatinine Glucose POC Glucose 239 H 259 H 310 H Lactic Acid Calcium Phosphorus Magnesium AST ALT Alkaline Phosphatase C-Reactive Protein Total Protein Albumin Triglycerides Ur Specific [place] Urine Creatinine Crossmatch 06/19/21 06/19/21 06/19/21 04:00 04:00 04:50 WBC RBC 3.64 L Hgb 9.1 L Hct 29.1 L MCV MCH 25 L RDW 21.5 H Plt Count Lymph % (Auto) Drew % (Auto) Lymph # (Auto) Drew # (Auto) Seg Neutrophils % Seg Neuts % (Manual) Lymphocytes % (Manual) Monocytes % (Manual) Seg Neutrophils # Seg Neutrophils # Man Lymphocytes # (Manual) Monocytes # (Manual) PT INR APTT Fibrinogen D-Dimer ABG pH POC ABG pCO2 POC ABG pO2 ABG pO2 78.9 L ABG HCO3 ABG O2 Saturation ABG Base Excess -3.2 L ABG Hemoglobin 7.6 L ABG Oxyhemoglobin Oxyhemoglobin Sodium 148 H Potassium Chloride 114.9 H Carbon Dioxide 19 L BUN 59 H Creatinine Glucose 345 H POC Glucose Lactic Acid Calcium 8.1 L Phosphorus 4.60 H D Magnesium 2.40 H AST ALT Alkaline Phosphatase C-Reactive Protein Total Protein Albumin Triglycerides Ur Specific [place] Urine Creatinine Crossmatch 06/19/21 06/19/21 06/19/21 06:28 11:11 17:20 WBC RBC Hgb Hct MCV MCH RDW Plt Count Lymph % (Auto) Drew % (Auto) Lymph # (Auto) Drew # (Auto) Seg Neutrophils % Seg Neuts % (Manual) Lymphocytes % (Manual) Monocytes % (Manual) Seg Neutrophils # Seg Neutrophils # Man Lymphocytes # (Manual) Monocytes # (Manual) PT 29.7 H INR 2.57 H APTT Fibrinogen D-Dimer ABG pH POC ABG pCO2 POC ABG pO2 ABG pO2 ABG HCO3 ABG O2 Saturation ABG Base Excess ABG Hemoglobin ABG Oxyhemoglobin Oxyhemoglobin Sodium Potassium Chloride Carbon Dioxide BUN Creatinine Glucose POC Glucose 279 H 275 H Lactic Acid Calcium Phosphorus Magnesium AST ALT Alkaline Phosphatase C-Reactive Protein Total Protein Albumin Triglycerides Ur Specific [place] Urine Creatinine Crossmatch 06/19/21 06/19/21 06/19/21 18:30 19:20 23:27 WBC RBC Hgb 8.0 L Hct 25.0 L MCV MCH RDW Plt Count Lymph % (Auto) Drew % (Auto) Lymph # (Auto) Drew # (Auto) Seg Neutrophils % Seg Neuts % (Manual) Lymphocytes % (Manual) Monocytes % (Manual) Seg Neutrophils # Seg Neutrophils # Man Lymphocytes # (Manual) Monocytes # (Manual) PT INR APTT Fibrinogen D-Dimer ABG pH POC ABG pCO2 POC ABG pO2 ABG pO2 ABG HCO3 ABG O2 Saturation ABG Base Excess ABG Hemoglobin ABG Oxyhemoglobin Oxyhemoglobin Sodium Potassium Chloride Carbon Dioxide BUN Creatinine Glucose POC Glucose 279 H 290 H Lactic Acid Calcium Phosphorus Magnesium AST ALT Alkaline Phosphatase C-Reactive Protein Total Protein Albumin Triglycerides Ur Specific [place] Urine Creatinine Crossmatch 06/20/21 06/20/21 06/20/21 00:00 04:33 04:33 WBC 22.3 H RBC 3.31 L Hgb 7.4 L 8.5 L Hct 22.5 L 26.5 L MCV MCH 26 L RDW 21.5 H Plt Count Lymph % (Auto) Drew % (Auto) Lymph # (Auto) Drew # (Auto) Seg Neutrophils % Seg Neuts % (Manual) Lymphocytes % (Manual) Monocytes % (Manual) Seg Neutrophils # Seg Neutrophils # Man Lymphocytes # (Manual) Monocytes # (Manual) PT INR APTT Fibrinogen D-Dimer ABG pH POC ABG pCO2 POC ABG pO2 ABG pO2 ABG HCO3 ABG O2 Saturation ABG Base Excess ABG Hemoglobin ABG Oxyhemoglobin Oxyhemoglobin Sodium 148 H Potassium Chloride 114.2 H Carbon Dioxide BUN 70 H Creatinine 1.4 H Glucose 313 H POC Glucose Lactic Acid Calcium 8.2 L Phosphorus Magnesium 2.50 H AST ALT Alkaline Phosphatase C-Reactive Protein Total Protein Albumin Triglycerides Ur Specific [place] Urine Creatinine Crossmatch 06/20/21 06/20/21 06/20/21 04:33 05:27 11:21 WBC RBC Hgb Hct MCV MCH RDW Plt Count Lymph % (Auto) Drew % (Auto) Lymph # (Auto) Drew # (Auto) Seg Neutrophils % Seg Neuts % (Manual) Lymphocytes % (Manual) Monocytes % (Manual) Seg Neutrophils # Seg Neutrophils # Man Lymphocytes # (Manual) Monocytes # (Manual) PT 18.3 H INR 1.37 H APTT Fibrinogen D-Dimer ABG pH POC ABG pCO2 POC ABG pO2 ABG pO2 ABG HCO3 ABG O2 Saturation ABG Base Excess ABG Hemoglobin ABG Oxyhemoglobin Oxyhemoglobin Sodium Potassium Chloride Carbon Dioxide BUN Creatinine Glucose POC Glucose 288 H 306 H Lactic Acid Calcium Phosphorus Magnesium AST ALT Alkaline Phosphatase C-Reactive Protein Total Protein Albumin Triglycerides Ur Specific [place] Urine Creatinine Crossmatch 06/20/21 06/20/21 06/20/21 12:23 15:56 18:20 WBC RBC Hgb 8.2 L 8.1 L Hct 25.9 L 25.5 L MCV MCH RDW Plt Count Lymph % (Auto) Drew % (Auto) Lymph # (Auto) Drew # (Auto) Seg Neutrophils % Seg Neuts % (Manual) Lymphocytes % (Manual) Monocytes % (Manual) Seg Neutrophils # Seg Neutrophils # Man Lymphocytes # (Manual) Monocytes # (Manual) PT INR APTT Fibrinogen D-Dimer ABG pH POC ABG pCO2 POC ABG pO2 ABG pO2 ABG HCO3 ABG O2 Saturation ABG Base Excess ABG Hemoglobin ABG Oxyhemoglobin Oxyhemoglobin Sodium Potassium Chloride Carbon Dioxide BUN Creatinine Glucose POC Glucose 293 H Lactic Acid Calcium Phosphorus Magnesium AST ALT Alkaline Phosphatase C-Reactive Protein Total Protein Albumin Triglycerides Ur Specific [place] Urine Creatinine Crossmatch 06/20/21 06/21/21 06/21/21 23:11 04:20 04:42 WBC 15.1 H RBC 2.84 L Hgb 7.3 L Hct 23.1 L MCV MCH 26 L RDW 21.5 H Plt Count Lymph % (Auto) 3.5 L Drew % (Auto) 11.7 H Lymph # (Auto) 0.5 L Drew # (Auto) 1.8 H Seg Neutrophils % 84.7 H Seg Neuts % (Manual) Lymphocytes % (Manual) Monocytes % (Manual) Seg Neutrophils # 12.8 H Seg Neutrophils # Man Lymphocytes # (Manual) Monocytes # (Manual) PT INR APTT Fibrinogen D-Dimer ABG pH POC ABG pCO2 POC ABG pO2 ABG pO2 98.5 H ABG HCO3 ABG O2 Saturation ABG Base Excess ABG Hemoglobin 7.2 L ABG Oxyhemoglobin Oxyhemoglobin Sodium Potassium Chloride Carbon Dioxide BUN Creatinine Glucose POC Glucose 206 H Lactic Acid Calcium Phosphorus Magnesium AST ALT Alkaline Phosphatase C-Reactive Protein Total Protein Albumin Triglycerides Ur Specific [place] Urine Creatinine Crossmatch 06/21/21 06/21/21 06/21/21 04:42 05:08 11:06 WBC RBC Hgb Hct MCV MCH RDW Plt Count Lymph % (Auto) Drew % (Auto) Lymph # (Auto) Drew # (Auto) Seg Neutrophils % Seg Neuts % (Manual) Lymphocytes % (Manual) Monocytes % (Manual) Seg Neutrophils # Seg Neutrophils # Man Lymphocytes # (Manual) Monocytes # (Manual) PT INR APTT Fibrinogen D-Dimer ABG pH POC ABG pCO2 POC ABG pO2 ABG pO2 ABG HCO3 ABG O2 Saturation ABG Base Excess ABG Hemoglobin ABG Oxyhemoglobin Oxyhemoglobin Sodium 151 H Potassium Chloride 117.2 H Carbon Dioxide 21 L BUN 75 H Creatinine 1.6 H Glucose 216 H POC Glucose 190 H 204 H Lactic Acid Calcium 7.9 L Phosphorus Magnesium 2.60 H AST ALT Alkaline Phosphatase C-Reactive Protein Total Protein Albumin Triglycerides 254 H Ur Specific [place] Urine Creatinine Crossmatch 06/21/21 06/21/21 06/21/21 14:00 16:42 21:52 WBC RBC Hgb 7.1 L 7.2 L Hct 22.0 L 22.1 L MCV MCH RDW Plt Count Lymph % (Auto) Drew % (Auto) Lymph # (Auto) Drew # (Auto) Seg Neutrophils % Seg Neuts % (Manual) Lymphocytes % (Manual) Monocytes % (Manual) Seg Neutrophils # Seg Neutrophils # Man Lymphocytes # (Manual) Monocytes # (Manual) PT INR APTT Fibrinogen D-Dimer ABG pH POC ABG pCO2 POC ABG pO2 ABG pO2 ABG HCO3 ABG O2 Saturation ABG Base Excess ABG Hemoglobin ABG Oxyhemoglobin Oxyhemoglobin Sodium Potassium Chloride Carbon Dioxide BUN Creatinine Glucose POC Glucose 207 H Lactic Acid Calcium Phosphorus Magnesium AST ALT Alkaline Phosphatase C-Reactive Protein Total Protein Albumin Triglycerides Ur Specific [place] Urine Creatinine Crossmatch 06/21/21 06/22/21 06/22/21 23:29 04:30 04:30 WBC 16.8 H RBC 2.93 L Hgb 7.4 L Hct 23.9 L MCV MCH 25 L RDW 21.8 H Plt Count Lymph % (Auto) Drew % (Auto) Lymph # (Auto) Drew # (Auto) Seg Neutrophils % Seg Neuts % (Manual) Lymphocytes % (Manual) Monocytes % (Manual) Seg Neutrophils # Seg Neutrophils # Man Lymphocytes # (Manual) Monocytes # (Manual) PT INR APTT Fibrinogen D-Dimer ABG pH POC ABG pCO2 POC ABG pO2 ABG pO2 ABG HCO3 ABG O2 Saturation ABG Base Excess ABG Hemoglobin ABG Oxyhemoglobin Oxyhemoglobin Sodium 151 H Potassium Chloride 118.7 H Carbon Dioxide BUN 57 H Creatinine Glucose 238 H POC Glucose 273 H Lactic Acid Calcium 8.0 L Phosphorus Magnesium 2.70 H AST ALT Alkaline Phosphatase C-Reactive Protein Total Protein Albumin Triglycerides Ur Specific [place] Urine Creatinine Crossmatch 06/22/21 06/22/21 06/22/21 05:17 11:31 14:20 WBC RBC Hgb 7.4 L Hct 22.5 L MCV MCH RDW Plt Count Lymph % (Auto) Drew % (Auto) Lymph # (Auto) Drew # (Auto) Seg Neutrophils % Seg Neuts % (Manual) Lymphocytes % (Manual) Monocytes % (Manual) Seg Neutrophils # Seg Neutrophils # Man Lymphocytes # (Manual) Monocytes # (Manual) PT INR APTT Fibrinogen D-Dimer ABG pH POC ABG pCO2 POC ABG pO2 ABG pO2 ABG HCO3 ABG O2 Saturation ABG Base Excess ABG Hemoglobin ABG Oxyhemoglobin Oxyhemoglobin Sodium Potassium Chloride Carbon Dioxide BUN Creatinine Glucose POC Glucose 214 H 214 H Lactic Acid Calcium Phosphorus Magnesium AST ALT Alkaline Phosphatase C-Reactive Protein Total Protein Albumin Triglycerides Ur Specific [place] Urine Creatinine Crossmatch 06/22/21 06/22/21 06/23/21 17:18 23:47 05:33 WBC RBC Hgb Hct MCV MCH RDW Plt Count Lymph % (Auto) Drew % (Auto) Lymph # (Auto) Drew # (Auto) Seg Neutrophils % Seg Neuts % (Manual) Lymphocytes % (Manual) Monocytes % (Manual) Seg Neutrophils # Seg Neutrophils # Man Lymphocytes # (Manual) Monocytes # (Manual) PT INR APTT Fibrinogen D-Dimer ABG pH POC ABG pCO2 POC ABG pO2 ABG pO2 ABG HCO3 ABG O2 Saturation ABG Base Excess ABG Hemoglobin ABG Oxyhemoglobin Oxyhemoglobin Sodium Potassium Chloride Carbon Dioxide BUN Creatinine Glucose POC Glucose 238 H 227 H 202 H Lactic Acid Calcium Phosphorus Magnesium AST ALT Alkaline Phosphatase C-Reactive Protein Total Protein Albumin Triglycerides Ur Specific [place] Urine Creatinine Crossmatch
[2021-06-23] MEDS: amLODIPine 5 MG TAB PO SCH (09:51)
[2021-06-23 10:22] LABS: Hematocrit 21.8 % (30.3-42.9); Hemoglobin 7.3 gm/dl (10.1-14.3); Mean Corpuscular HGB Conc 34 % (30-34); Mean Corpuscular Volume 80 fl (79-97); Platelet Count 257 K/mm3 (140-440); Red Blood Count 2.71 M/mm3 (3.65-5.03)
[2021-06-23 10:25] LABS: Red Cell Distribution Width 22.1 % (13.2-15.2)
[2021-06-23] MEDS ORDERED: POTASSIUM CHLORIDE 20 MEQ PACKET FEEDTUBE ONE ×2 (14:35→17:00)
[2021-06-23] MEDS ORDERED: POTASSIUM PHOSPHATE 30 MMOL in SODIUM CHLORIDE 0.9% 500 ML 500 ML IV ONE (14:35)
--- NOTE | 2021-06-23 14:50 | Progress Note ---
Assessment and Plan Assessment and plan: This is a 76-year-old female with HTN, Coumadin use , dental caries, PVD s/p stenting right leg, DM, arthritis, depression, gout, and ? Pulmonary hypertension who presented to emergency department on 06/11 with complaints of pain to mandible area and throat and swelling. Work-up in the emergency department included CT scan of the head and neck which showed findings consistent with Jeremiah's angina and anesthesia was called for intubation. Anesthesia intubation attempts were unsuccessful and surgery was consulted for cricothyroidotomy which was unsuccessful in the emergency department and patient was taken to the OR for tracheostomy. Intubation procedure was complicated by development of pneumothorax and excessive bleeding due to supratherapeutic INR s/p multiple FFP's and vitamin K. Remains on ventilatory support in the ICU. Hospital course to date: 06/12: Patient received additional 2 units FFP and 1 unit PRBC and vitamin K today. Overnight critical care placed a femoral CVL. Patient sedated on fentanyl, propofol and Versed. Currently on Fabian-Synephrine and Levophed for blood pressure maintenance. Remains amatory support. Infectious disease consulted. Started on sliding scale insulin and recultured. COVID-19 PCR pending. Surgery at bedside to place chest tube. 06/13: Patient was taken back to the OR today for exchange cricothyroid to possible tracheostomy. Patient returned with ETT. Chest tube was changed to larger size in the OR. Patient was hypotensive, tachycardic, hypoxic in the OR and received hespan, albumin and an A-line. Upon arrival patient was increased to max dose Levophed for hypotension which has resolved. Titrating vasopressors as tolerated. Remains on sedation with 3 agents. Apparently patient was not ventilating her left lung Intra-Op. Noted to have subcu hematoma and trauma to postpharyngeal area. Questionable decrease cardiac wall motion noted in OR-> will order echocardiogram to further investigate. Patient received additional PRBC today. DIC panel resulted as normal. Patient BUN/creatinine did increase as well as noted to have lactic acidosis. May need IV bolus in addition to pressor use. Likely bronc with Pulmicort today as repeat CXR showed right possible pneumo hydrothorax 06/14: Antibiotics changed to Zosyn per ID, surgical packing removed from neck and makeshift [place] drain placed by surgery and old chronic thyroidectomy site. CXR was completed and RN heard gurgling and blood was noted on dressing. ST elevation noted on bedside monitor and patient was hypoxic. FiO2 increased to 100%. However shortly after patient lost her pulse and ACLS was initiated. Patient received 3 rounds of epinephrine and ROSC was achieved. Stat portable CXR showed resolution of lower lobe collapse on the left and stable right-sided chest tube with hemothorax. CCM updated family. Patient H/H noted to be 7.2/ 23.2 and did RN to transfuse prepared PRBC which [facility] blood bank. Bedside echo completed. 06/15: Off sedation, intermittently follows commands, remains on the prednisone. Surgery will reassess airway on Thursday to see if any further support is required. Urine studies indicate prerenal, given IV bolus and started on Clinimix today. 06/16: Patient restarted on fentanyl drip due to hypertension. Given more LR due to CR improvement post LR yesterday. Patient started on Lantus subcu after give n one-time dose of Lantus. PICC placed today. Patient had a CT chest today which showed no mediasinusitis but extensive subcutaneous air. 06/17: General Surgery recommended transferring patient to a ENT specialized facility. Placed a call to [facility], spoke with the housing installer, Dr. Duckworth, who stated that a transfer is possible as long their ENT team accept the patient. Awaiting on a final response. Continue current supportive measures. Basal insulin adjusted for hyperglycemia. 06/18: JEREMIAS overnight. Hypertensive this am, PRN Hydralazine for SBP greater than 160. Remains hyperglycemic, patient is on IV steroids and TPN, basal insulin adjusted. Plan for possible transfer to [place] once an ICU bed is available. 06/19: Low SPO2 and hypotension overnight required Levophed for a short time. Overnight CXR noted with no significant changed. Patient is stable this am and off pressors. Plan for possible Trach and PEG today by General Surgery. 06/20: s/p Trach and PEG. Some bleeding overnight s/p X1 dose of Vitamin K. The bleeding resolved this am, H&H remains stable. Attempted a SAT this am, patient went into SVT, HR in the 160-170 which resolved once sedations were resumed. Plan is to continue to sedation for now, attempt to wean off propofol for a RASS goal of 0 to -2. D/C CCM plan is to wean off sedation as tolerated for PST for possible extubation. Okay to use PEGT per Gen. Surgery. Nutrition consulted for TF management, TF to start tonight once current TPN bag is completed. BG remains elevated, continue current SSI and basal for now, will start tapering IV steroids tomorrow. FWF added for hyponatremia. Wean off pressors as tolerated for MAP above 65. Possible transfer to [place] for ENT eval. 06/21: Overnight events and CXR noted. Worsen subcutaneous emphysema and Rt. Pneumo. CT remains in place and intact to cont. wall suction. Patient remains hemodynamically stable, still on low vent setting. will continue to monitor for now. Patient is also tolerating enteral nutrition via PEGT, TPN D/benjamín. H&H is also trending down, no s/s of any active bleeding. Will continue to trend H&H, transfuse if hgb is less than 7. FWF increased for hypernatremia. Still waiting on possible transfer to [place]. 06/22: JEREMIAS overnight. Subcutaneous emphysema is unchanged. CXR with mild improvement. Patient remains hemodynamically stable. Hydralazine added Q8hr for HTN. FWF increased for hypernatremia. Awaiting transfer to [place] for ENT eval. 06/23: Over 70cc from CT overnight, subcutaneous emphysema with mild improvement. Patient is also tolerating PST this am. Repeat CXR in the am. Patient is still hypertensive, will added norvasc for better control. Continue FWF for hypernatremia and electrolytes replacement as needed, repeat labs in the am. Darin in wbcs this am, patient remains afebrile and on IV Abx, most likely due to IV steroids continue to monitor. Continue to taper IV steroids. Hyperglycemia is also improving, continue current SSI and basal for now. Neuro: Sedated, h/o depression, arthritis -Awake and following commands, on fentanyl -RASS goal 0 to -1 -Avoid delirium -Reorientation as needed -Maintain sleep-wake cycle Cardiac: S/p cardiac arrest, h/o htn, PVD s/p stenting Right leg -06/14 cardiac arrest with ROSC -S/p vasopressor support with Levophed and Fabian-Synephrine -Blood pressure monitoring per protocol -Pressure monitoring via A-line -2/10 Echocardiogram EF 65-70% Respiratory: Acute hypoxic respiratory failure, right pneumothorax -[facility] consulted, appreciate recommendations -S/p emergent cricothyroid with surgery with 8.00 ETT -06/19 s/p Tracheostmy -A.m. vent settings:CPAP-40%,5 PS-12 -CXR noted with increase subQ air, no pneumothorax; CT remains to continuous wall suction -Right chest tube replaced by surgery -CT to wall suction -Changed to larger bore on 06/13 -Postop CXR shows possible hydropneumothorax on right side -06/13 bronchoscopy showed possible blood clot in left lung which may be acting as mucous plug however it was left in place due to possible bleeding inside lung if removed. -CXR post cardiac arrest shows clearance of mucous plug -06/16 CT chest shows moderate right pneumothorax with collapse of right upper lobe, right thoracostomy tube terminates at the collapsed right upper lobe, bilateral bronchus opacities compatible with infectious/inflammatory etiology, bilateral small pleural effusion, extensive subcutaneous air, small fluid collection in the anterior mediastinum is nonspecific -VAP bundle -SPO2 monitoring : Acute kidney injury possibly secondary to vasomotor nephropathy hypernatremia -Continue FWF -Strict intake and output -Renally dose medications -Avoid nephrotoxic medications -Daily weights -Consider nephrology consult if worsens -Trend BMP ID: 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 dental caries -CT neck with contrast showed a significant right floor of mild swelling with extension into the submandibular and submental spaces, significant thickening and inflammation involving the right pharyngeal wall, with the parapharyngeal an d retropharyngeal spaces at the level of the thyroid cartilage, epiglottis significantly swollen and so are the aryepiglottic folds resulting in significant airway narrowing at this level, no lymphadenopathy, symmetric submandibular and parathyroid glands, S few scattered caries but no periapical lucencies, nonspecific calcification along the right lateral oropharynx, no definite stone seen within the territory of the submandibular gland ducts, no suspicious rashes lesion -Infectious disease and general surgery consulted, appreciate recommendations -s/p cricothyroidectomy -Will follow surgery to direction and treatment of injury -Per surgery may have mucosal injury -Intra-Op findings include post pharyngeal swelling and bruising -Solu-Medrol 125 every 8 -Antibiotic therapy Zosyn -COVID-19 PCR negative -f/u blood culture -Monitor WBC and temperature curve -s/p 5L normal saline bolus in ED, 6 L LR bolus in ICU - repeat LR bolus today Heme: Coagulopathy, supratherapeutic INR, acute blood loss anemiq, possible component of hemorrhagic shock -Patient is on Coumadin at home -S/p 5 FFP, 7 PRBC, vitamin K x3 -Trend CBC -Presented with H/H of 10.3/34.6 and decreased to 6.7/22.4 -INR 8.18-> 4.55-> 2.1-> 1.23-> 1.16-> 1.31 -Monitor INR -Transfuse hemoglobin less than 7 -Monitor for signs of bleeding -SCDs to BLE while in bed -Avoid chemical anticoagulation in setting of recent blood loss anemia Endo: Hyperglycemia, h/o DM, gout -Patient is on TPN and on IV steroids -06/19 s/p PEG Tube placement- okay to use per Gen surgery -Nutrition consulted for TF management -Patient is tolerating TF, advanced TF to goal as tolerated -Continue high dose SSI Q6hrs and lantus BID -Tapering IV steroids tomorrow -Avoid hypoglycemia The high probability of a clinically significant, sudden or life threatening deterioration of the [multi] system(s) required my full and direct attention, intervention and personal management. The aggregate critical care time was [60] minutes. This time is in addition to time spent performing reported procedures but includes the following: [x] Data Review and interpretation [x] Patient assessment and monitoring of vital signs [x] Documentation [x] Medication orders and management Disposition Plan: ICU Total Time Spent with Patient (Minutes): 60 History Interval history: Patient seen and examined at the bedside. Remains on fentanyl gtt. Awake and alert, following commands. Subcutaneous emphesa with mild improvement this am. Over 70cc of serosanguinous out from CT overnight. JEREMIAS overnight Hospitalist Physical - Constitutional Vitals: Temp Pulse Resp BP Pulse Ox 99.7 F H 92 H 17 173/76 100 06/23/21 11:26 06/23/21 12:30 06/23/21 12:30 06/23/21 12:30 06/23/21 12:30 General appearance: Present: no acute distress, obese, other (On the vent ) - EENT Eyes: Present: PERRL ENT: hearing intact - Respiratory Respiratory effort: normal Respiratory: bilateral: diminished - Cardiovascular Rhythm: regular Heart Sounds: Present: S1 & S2 - Extremities Extremities: no ischemia, pulses intact, pulses symmetrical, abnormal (Subcutaneous emphysema) Extremity abnormal: edema - Peripheral Assessment Generalized Edema Type: Pitting Edema Degree: 2+ Capillary Refill: < 3 seconds Skin Temperature: Warm Peripheral Pulses: within normal limits - Abdominal General gastrointestinal: soft, non-distended, normal bowel sounds - Integumentary Integumentary: Present: warm, dry - Psychiatric Psychiatric: cooperative, depressed - Neurologic Neurologic: other (Awake, following commands) - Allied Health Allied health notes reviewed: nursing HEART Score - HEART Score Troponin: Troponin T < 0.010 ng/mL (0.00-0.029) 06/11/21 23:21 Results - Labs CBC & Chem 7: 06/23/21 10:04 06/23/21 10:04 Labs: Laboratory Last Values WBC 20.3 K/mm3 (4.5-11.0) H 06/23/21 10:04 RBC 2.71 M/mm3 (3.65-5.03) L 06/23/21 10:04 Hgb 7.3 gm/dl (10.1-14.3) L 06/23/21 10:04 Hct 21.8 % (30.3-42.9) L 06/23/21 10:04 MCV 80 fl (79-97) 06/23/21 10:04 MCH 27 pg (28-32) L 06/23/21 10:04 MCHC 34 % (30-34) 06/23/21 10:04 RDW 22.1 % (13.2-15.2) H 06/23/21 10:04 Plt Count 257 K/mm3 (140-440) 06/23/21 10:04 Lymph % (Auto) 3.5 % (13.4-35.0) L 06/21/21 04:42 [place] % (Auto) 11.7 % (0.0-7.3) H 06/21/21 04:42 Eos % (Auto) 0.0 % (0.0-4.3) 06/21/21 04:42 Baso % (Auto) 0.1 % (0.0-1.8) 06/21/21 04:42 Lymph # (Auto) 0.5 K/mm3 (1.2-5.4) L 06/21/21 04:42 [place] # (Auto) 1.8 K/mm3 (0.0-0.8) H 06/21/21 04:42 Eos # (Auto) 0.0 K/mm3 (0.0-0.4) 06/21/21 04:42 Baso # (Auto) 0.0 K/mm3 (0.0-0.1) 06/21/21 04:42 Add Manual Diff Complete 06/13/21 Unknown Total Counted 100 06/13/21 Unknown Seg Neutrophils % 84.7 % (40.0-70.0) H 06/21/21 04:42 Seg Neuts % (Manual) 88.0 % (40.0-70.0) H 06/13/21 Unknown Band Neutrophils % 2.0 % 06/13/21 Unknown Lymphocytes % (Manual) 4.0 % (13.4-35.0) L 06/13/21 Unknown Reactive Lymphs % (Man) 0 % 06/13/21 Unknown Monocytes % (Manual) 6.0 % (0.0-7.3) 06/13/21 Unknown Eosinophils % (Manual) 0 % (0.0-4.3) 06/13/21 Unknown Basophils % (Manual) 0 % (0.0-1.8) 06/13/21 Unknown Metamyelocytes % 0 % 06/13/21 Unknown Myelocytes % 0 % 06/13/21 Unknown Promyelocytes % 0 % 06/13/21 Unknown Blast Cells % 0 % 06/13/21 Unknown Nucleated RBC % Not Reportable 06/13/21 Unknown Seg Neutrophils # 12.8 K/mm3 (1.8-7.7) H 06/21/21 04:42 Seg Neutrophils # Man 19.8 K/mm3 (1.8-7.7) H 06/13/21 Unknown Band Neutrophils # 0.5 K/mm3 06/13/21 Unknown Lymphocytes # (Manual) 0.9 K/mm3 (1.2-5.4) L 06/13/21 Unknown Abs React Lymphs (Man) 0.0 K/mm3 06/13/21 Unknown Monocytes # (Manual) 1.4 K/mm3 (0.0-0.8) H 06/13/21 Unknown Eosinophils # (Manual) 0.0 K/mm3 (0.0-0.4) 06/13/21 Unknown Basophils # (Manual) 0.0 K/mm3 (0.0-0.1) 06/13/21 Unknown Metamyelocytes # 0.0 K/mm3 06/13/21 Unknown Myelocytes # 0.0 K/mm3 06/13/21 Unknown Promyelocytes # 0.0 K/mm3 06/13/21 Unknown Blast Cells # 0.0 K/mm3 06/13/21 Unknown WBC Morphology Not Reportable 06/13/21 Unknown Hypersegmented Neuts Not Reportable 06/13/21 Unknown Hyposegmented Neuts Not Reportable 06/13/21 Unknown Hypogranular Neuts Not Reportable 06/13/21 Unknown Smudge Cells Not Reportable 06/13/21 Unknown Toxic Granulation 2+ 06/13/21 Unknown Toxic Vacuolation Not Reportable 06/13/21 Unknown Dohle Bodies Not Reportable 06/13/21 Unknown Pelger-Huet Anomaly Not Reportable 06/13/21 Unknown Dennis Rods Not Reportable 06/13/21 Unknown Platelet Estimate Consistent w auto 06/13/21 Unknown Clumped Platelets Not Reportable 06/13/21 Unknown Plt Clumps, EDTA Not Reportable 06/13/21 Unknown Large Platelets Not Reportable 06/13/21 Unknown Giant Platelets Not Reportable 06/13/21 Unknown Platelet Satelliting Not Reportable 06/13/21 Unknown Plt Morphology Comment Not Reportable 06/13/21 Unknown RBC Morphology Not Reportable 06/13/21 Unknown Dimorphic RBCs Not Reportable 06/13/21 Unknown Polychromasia Few 06/13/21 Unknown Hypochromasia 2+ 06/13/21 Unknown Poikilocytosis Not Reportable 06/13/21 Unknown Anisocytosis 1+ 06/13/21 Unknown Microcytosis Not Reportable 06/13/21 Unknown Macrocytosis Not Reportable 06/13/21 Unknown Spherocytes Not Reportable 06/13/21 Unknown Pappenheimer Bodies Not Reportable 06/13/21 Unknown Sickle Cells Not Reportable 06/13/21 Unknown Target Cells Not Reportable 06/13/21 Unknown Tear Drop Cells Not Reportable 06/13/21 Unknown Ovalocytes Not Reportable 06/13/21 Unknown Stomatocytes Few 06/12/21 01:45 Helmet Cells Not Reportable 06/13/21 Unknown [place] Bodies Not Reportable 06/13/21 Unknown Marshall Rings Not Reportable 06/13/21 Unknown Nelsy Cells Not Reportable 06/13/21 Unknown Bite Cells Not Reportable 06/13/21 Unknown Crenated Cell Not Reportable 06/13/21 Unknown Elliptocytes Not Reportable 06/13/21 Unknown Acanthocytes (Spur) Not Reportable 06/13/21 Unknown Rouleaux Not Reportable 06/13/21 Unknown Hemoglobin C Crystals Not Reportable 06/13/21 Unknown Schistocytes Not Reportable 06/13/21 Unknown Malaria parasites Not Reportable 06/13/21 Unknown Edin Bodies Not Reportable 06/13/21 Unknown Hem Pathologist Commnt No 06/13/21 Unknown PT 18.3 Sec. (12.2-14.9) H 06/20/21 04:33 INR 1.37 (0.87-1.13) H 06/20/21 04:33 APTT 26.4 Sec. (24.2-36.6) 06/13/21 Unknown Fibrinogen 546 mg/dl (211-480) H 06/13/21 Unknown D-Dimer 1244.63 ng/mlDDU (0-234) H 06/13/21 Unknown ABG pH 7.426 pH Units (7.350-7.450) 06/21/21 04:20 POC ABG pCO2 25.6 mmHg (32.0-48.0) L 06/13/21 04:31 ABG pCO2 35.1 mm Hg 06/21/21 04:20 POC ABG pO2 138.8 mmHg (83-108) H 06/13/21 04:31 ABG pO2 98.5 mm Hg (80.0-90.0) H 06/21/21 04:20 POC ABG HCO3 21.4 06/13/21 04:31 ABG HCO3 22.6 mmol/L (20.0-26.0) 06/21/21 04:20 ABG O2 Saturation 97.7 % (95.0-99.0) 06/21/21 04:20 ABG O2 Content 9.9 (0.0-44) 06/21/21 04:20 POC ABG Base Excess -0.7 06/13/21 04:31 ABG Base Excess -1.6 mmol/L (-2.0-3.0) 06/21/21 04:20 ABG Hemoglobin 7.2 gm/dl (12.0-16.0) L 06/21/21 04:20 ABG Oxyhemoglobin 98.1 (94-98) H 06/13/21 04:31 ABG Carboxyhemoglobin 1.7 % (0.0-5.0) 06/21/21 04:20 ABG Methemoglobin 0.5 % (0.0-1.5) 06/21/21 04:20 Oxyhemoglobin 95.5 % (95.0-99.0) 06/21/21 04:20 Carboxyhemoglobin 0.8 (0.5-1.5) 06/13/21 04:31 FiO2 30 % 06/21/21 04:20 FiO2 % 40.0 06/13/21 04:31 Sodium 151 mmol/L (137-145) H 06/23/21 10:04 Potassium 3.2 mmol/L (3.6-5.0) L 06/23/21 10:04 Chloride 116.9 mmol/L (98-107) H 06/23/21 10:04 Carbon Dioxide 23 mmol/L (22-30) 06/23/21 10:04 Anion Gap 14 mmol/L 06/23/21 10:04 BUN 40 mg/dL (7-17) H 06/23/21 10:04 Creatinine 1.1 mg/dL (0.6-1.2) 06/23/21 10:04 Estimated GFR 59 ml/min 06/23/21 10:04 BUN/Creatinine Ratio 36 % 06/23/21 10:04 Glucose 208 mg/dL (65-100) H 06/23/21 10:04 POC Glucose 204 mg/dL (70-105) H 06/23/21 11:06 Lactic Acid 5.30 mmol/L (0.7-2.0) H* 06/13/21 15:45 Calcium 8.0 mg/dL (8.4-10.2) L 06/23/21 10:04 Phosphorus 1.80 mg/dL (2.5-4.5) L D 06/23/21 10:04 Magnesium 2.30 mg/dL (1.7-2.3) 06/23/21 10:04 Total Bilirubin 0.40 mg/dL (0.1-1.2) 06/15/21 03:56 AST 64 units/L (5-40) H 06/15/21 03:56 ALT 106 units/L (7-56) H 06/15/21 03:56 Alkaline Phosphatase 55 units/L (35-129) 06/15/21 03:56 Troponin T < 0.010 ng/mL (0.00-0.029) 06/11/21 23:21 C-Reactive Protein 3.30 mg/dL (0.00-1.30) H 06/16/21 04:32 Total Protein 5.1 g/dL (6.3-8.2) L 06/15/21 03:56 Albumin 2.9 g/dL (3.9-5) L 06/15/21 03:56 Albumin/Globulin Ratio 1.3 % 06/15/21 03:56 Triglycerides 254 mg/dL (2-149) H 06/21/21 04:42 Urine Color Yellow (Yellow) 06/12/21 17:00 Urine Turbidity Clear (Clear) 06/12/21 17:00 Urine pH 5.0 (5.0-7.0) 06/12/21 17:00 Ur Specific [place] 1.035 (1.003-1.030) H 06/12/21 17:00 Urine Protein 30 mg/dl mg/dL (Negative) 06/12/21 17:00 Urine Glucose (UA) 50 mg/dL (Negative) 06/12/21 17:00 Urine Ketones Tr mg/dL (Negative) 06/12/21 17:00 Urine Blood Neg (Negative) 06/12/21 17:00 Urine Nitrite Neg (Negative) 06/12/21 17:00 Urine Bilirubin Neg (Negative) 06/12/21 17:00 Urine Urobilinogen < 2.0 mg/dL (<2.0) 06/12/21 17:00 Ur Leukocyte Esterase Neg (Negative) 06/12/21 17:00 Urine WBC (Auto) < 1.0 /HPF (0.0-6.0) 06/12/21 17:00 Urine RBC (Auto) < 1.0 /HPF (0.0-6.0) 06/12/21 17:00 Urine Creatinine 81.1 mg/dL (0.1-20.0) H 06/15/21 10:40 Urine Sodium 42 mmol/L 06/15/21 10:40 Coronavirus (PCR) Negative (Negative) 06/12/21 09:50 Blood Type O POSITIVE 06/11/21 19:20 Antibody Screen Negative 06/11/21 19:20 Crossmatch See Detail 06/11/21 19:20 Lujan/IV: Voiding Method Indwelling Catheter Active Medications - Current Medications Current Medications: Generic Name Dose Route Start Last Admin Trade Name Freq PRN Reason Stop Dose Admin Amlodipine Besylate 5 mg 06/23/21 10:00 06/23/21 09:51 Amlodipine 5 Mg Tab PO 5 mg QDAY JOLENE Administration Lipase/Protease/Amylase 1 each 06/19/21 19:20 Lipase 10,500/Protease 25,000/Amylase 43,750 (Units) Dr Melgar FEEDTUBE PRN PRN For Clogged Feeding Tube Atorvastatin Calcium 20 mg 06/22/21 22:00 06/22/21 21:12 Atorvastatin 20 Mg Tab PO 20 mg QHS JOLENE Administration Docusate Sodium 100 mg 06/20/21 10:00 06/23/21 09:00 Docusate Sodium 100 Mg/10 Ml Oral Liqd PO 100 mg BID JOLENE Administration Famotidine 10 mg 06/15/21 22:00 06/23/21 09:00 Famotidine 20 Mg/2 Ml Inj IV 10 mg BID JOLENE Administration Fentanyl 50 mcg 06/11/21 22:55 06/22/21 14:21 Fentanyl 100 Mcg/2 Ml Inj IV 50 mcg Q10MIN PRN Administration ANALGESIA Fentanyl 50 mcg 06/20/21 12:00 Fentanyl 100 Mcg/2 Ml Inj IV Q2HR PRN For CPOT greater than 3 Hydralazine HCl 10 mg 06/16/21 08:00 06/19/21 03:02 Hydralazine 20 Mg/1 Ml Inj IV 10 mg Q4H PRN Administration Hypertension Hydralazine HCl 100 mg 06/22/21 19:00 06/23/21 13:37 Hydralazine 100 Mg Tab FEEDTUBE 100 mg Q8HR JOLENE Administration Hydromorphone HCl 0.5 mg 06/11/21 20:42 06/22/21 22:18 Hydromorphone 1 Mg/1 Ml Inj IV 0.5 mg Q3H PRN Administration Pain , Severe (7-10) Fentanyl Citrate 2,000 mcg in 100 mls @ 5.466 mls/hr 06/11/21 23:00 06/23/21 12:00 Fentanyl Drip Premix IV 4 mcg/kg/hr TITR JOLENE 21.863 mls/hr Administration Protocol 1 MCG/KG/HR Phenylephrine HCl 100 mg/ 100 mls @ 3 mls/hr 06/11/21 23:45 06/14/21 07:00 Sodium Chloride IV 0 mcg/min TITR JOLENE 0 mls/hr Titration Protocol 50 MCG/MIN NORepinephrine/NS 8 MG-250 ML 8 mg in 250 mls @ 3.75 mls/hr 06/12/21 02:00 06/20/21 12:13 Norepinephrine/Ns 8 Mg-250 Ml (Double Conc) IV 0 mcg/min TITRATE JOLENE 0 mls/hr Titration Protocol 2 MCG/MIN Propofol 1,000 mg in 100 mls @ 3.279 mls/hr 06/12/21 03:00 06/21/21 09:13 Diprivan 10 Mg/Ml IV 0 mcg/kg/min TITR JOLENE 0 mls/hr Titration Protocol 5 MCG/KG/MIN Piperacillin Sod/Tazobactam Sod 3.375 gm in 50 mls @ 100 mls/hr 06/21/21 18:00 06/23/21 12:00 Zosyn/Ns 3.375gm/50ml IV 100 mls/hr Q6HR JOLENE Administration Potassium Phosphate 30 mmol/ 510 mls @ 85 mls/hr 06/23/21 14:35 Sodium Chloride IV 06/23/21 20:34 ONCE ONE Insulin Glargine 25 units 06/19/21 10:00 06/23/21 09:00 Insulin Glargine 100 Units/Ml SUB-Q 25 units BID JOLENE Administration Insulin Human Lispro 0 unit 06/12/21 12:00 06/23/21 12:00 Insulin Lispro 100 Unit/Ml SUB-Q 4 unit Q6HR JOLENE Administration Protocol Labetalol HCl 10 mg 06/21/21 18:00 06/23/21 00:22 Labetalol 20 Mg/4 Ml Inj IV 10 mg Q4HR PRN Administration Hypertension Methylprednisolone Sodium Succinate 40 mg 06/23/21 10:00 06/23/21 09:00 Methylprednisolone Sod Succinate 40 Mg/1 Ml Inj IV 40 mg Q12HR JOLENE Administration Metoclopramide HCl 10 mg 06/11/21 20:42 Metoclopramide 10 Mg/2 Ml Inj IV Q6H PRN Nausea And Vomiting Ondansetron HCl 4 mg 06/11/21 20:42 Ondansetron 4 Mg/2 Ml Inj IV Q3H PRN Nausea And Vomiting Potassium Chloride 40 meq 06/23/21 14:35 Potassium Chloride 20 Meq Packet FEEDTUBE 06/23/21 14:36 ONCE ONE Senna 17.6 mg 06/20/21 10:00 06/23/21 09:00 Sennosides Oral Liqd 8.8 Mg/5 Ml Oral Liqd PO 17.6 mg Q12HR JOLENE Administration Simple Syrup 15 ml 06/19/21 19:20 Simple Syrup 15 Ml FEEDTUBE PRN PRN Hypoglycemia Simple Syrup 30 ml 06/19/21 19:20 Simple Syrup 15 Ml FEEDTUBE PRN PRN Hypoglycemia Sodium Bicarbonate 325 mg 06/19/21 19:20 Sodium Bicarbonate 325 Mg Tab FEEDTUBE PRN PRN For Clogged Feeding Tube Sodium Chloride 10 ml 06/11/21 22:00 06/23/21 09:52 Sodium Chloride 0.9% 10 Ml Flush Syringe IV 10 ml BID JOLENE Administration Sodium Chloride 10 ml 06/11/21 20:42 Sodium Chloride 0.9% 10 Ml Flush Syringe IV PRN PRN LINE FLUSH Nutrition/Malnutrition Assess - Dietary Evaluation Nutrition/Malnutrition Findings: Nutrition Notes Start: 06/16/21 12:10 Freq: Status: Active Protocol: Document 06/23/21 09:54 CANDIDO (Rec: 06/23/21 10:20 CANDIDO [id number]) Nutrition Notes Initial or Follow up Reassessment Current Diagnosis Diabetes,Sepsis,Hypertension, Respiratory Failure Other Pertinent Diagnosis Jeremiah's Angina, (R) Pneumothorax, Coagulopathy, s/ pCardiac Arrest, Gout... Current Diet TF-Vital AF 1.2 Quan @ 50 ml/hr (since D 06/21). Labs/Tests 06/22: Na 151, Cl 118.7, BUN 57, Glu 238, Ca 8.0, Mg 2.7. Pertinent Medications 06/23: Insulin, others nutritionally unremarkable. Height 5 ft 8 in Weight 109.316 kg [place] Body Weight (kg) 63.63 BMI 36.6 Weight change and time frame No body weight change reported . Weight Status Obese Subjective/Other Information RD consult for write/manage TF . TF continues as prescribed. Pt continues on Mechanical Ventilation, but is awake and responsive. Pt awaiting transfer to tertiary center. Pt continues with hypernatremia. Percent of energy/protein needs met: Prescribed Vital AF 1.2 Quan @ 50 ml/hr provides for energy/ protein needs (1,440 Kcal/90 g ) during LOS; 105% Kcal and 71 % AA. Burn Absent Trauma Absent GI Symptoms Other Difficulty In Swallowing,Chewing Food Allergy No Skin Integrity/Comment Surgical wounds. Current % PO Other Minimum of two criteria No #1 Nutrition Diagnosis Inadequate oral intake Diagnosis Progress(for reassessment Continues documentation) Is patient on ventilator? Yes Is Patient Ambulatory and/or Out of Bed No REE-([facility]-confined to bed) [phone] Calculation Used for Recommendations 65-70% energy needs Additional Notes Energy needs: 1280-1379kcal/ day Pro needs 2g/kg IBW: 127g/day Fluid needs 1ml/kcal Nutrition Intervention Nutrition Support: Continue Vital AF 1.2 Quan @ 50 ml/hr. Flush: 200 ml water Q 4 hr. When hypernatermia resolved, provide 80 ml water flush Q 4 hr. Kcal 1,440 Protein (gm) 90 Carbohydrates (gm) 133 Fat (gm) 65 Fluid (mL) 973 Fiber (gm) 6 % RDI: 105% Kcal; 71% AA. Goal #1 Provide at least 75% of energy /protein needs through Enteral Feeding during LOS. Goal #2 Maintain body weight within +/ -3% of admission body weight during LOS. Follow-Up By: 06/27/21 Additional Comments Continue monitoring Mechanical Ventilation, Na/Flush, TF tolerance and BM.
[2021-06-24] MEDS: INSULIN LISPRO 100 UNIT/ML SUB-Q SCH ×4 (00:01→17:47)
[2021-06-24] MEDS: PIPERACILLIN/TAZOBACTAM 3.375 3.375 GM/50 ML BAG IV SCH ×4 (00:02→17:47)
[2021-06-24] MEDS: fentaNYL DRIP Premix 2,000 MCG/100 ML BAG IV SCH (02:07)
[2021-06-24] MEDS: FREE WATER PO SCH ×2 (02:08→06:06)
--- NOTE | 2021-06-24 02:43 | XRay Report ---
XR chest 1V ap INDICATION / CLINICAL INFORMATION: F/U Rt. Pneumo. COMPARISON: 06/22/2021 FINDINGS: SUPPORT DEVICES: Tracheostomy device and right thoracostomy tube are stable. HEART /PULMONARY VASCULATURE: Unchanged. LUNGS / PLEURA: Extensive subcutaneous emphysema limits evaluation. Right pneumothorax is nearly reso lved. Trace right apical pneumothorax remains. No pneumothorax on the left. Slight increase in airspa ce opacity at the right lung base. IMPRESSION: 1. Improved right pneumothorax. 2. Increased right basilar opacity, which may reflect atelectasis or worsening infiltrate. Signer Name: Tommy Akers MD Signed: 06/24/2021 2:38 AM Workstation Name: [id number]
[2021-06-24 05:44] LABS: Hematocrit 20.3 % (30.3-42.9); Hemoglobin 6.6 gm/dl (10.1-14.3); Mean Corpuscular HGB Conc 32 % (30-34); Mean Corpuscular Volume 81 fl (79-97); Platelet Count 257 K/mm3 (140-440); Red Blood Count 2.49 M/mm3 (3.65-5.03)
[2021-06-24 05:46] LABS: Calcium 7.9 mg/dL (8.4-10.2)
[2021-06-24 05:51] LABS: Red Cell Distribution Width 22.6 % (13.2-15.2)
[2021-06-24] MEDS: hydrALAZINE 100 MG TAB FEEDTUBE SCH ×3 (06:05→21:09)
[2021-06-24] MEDS ORDERED: SODIUM CHLORIDE 0.9% 500 ML 500 ML IV ONE (07:22)
[2021-06-24] MEDS ORDERED: POTASSIUM CHLORIDE 20 MEQ PACKET FEEDTUBE SCH (09:00)
[2021-06-24] MEDS ORDERED: POTASSIUM PHOSPHATE 30 MMOL in SODIUM CHLORIDE 0.9% 500 ML 500 ML IV SCH (09:30)
[2021-06-24] MEDS: methylPREDNISolone Sod Succinate 40 MG/1 ML INJ IV SCH ×2 (09:43→21:09)
[2021-06-24] MEDS: INSULIN GLARGINE 100 UNITS/ML SUB-Q SCH ×2 (09:43→22:48)
[2021-06-24] MEDS: DOCUSATE SODIUM 100 MG/10 ML ORAL LIQD PO SCH ×2 (09:43→21:10)
[2021-06-24] MEDS: SENNOSIDES ORAL LIQD 8.8 MG/5 ML ORAL LIQD PO SCH ×2 (09:43→21:09)
[2021-06-24] MEDS: amLODIPine 5 MG TAB PO SCH (09:44)
[2021-06-24] MEDS: FAMOTIDINE 20 MG/2 ML INJ IV SCH (09:44)
--- NOTE | 2021-06-24 10:59 | Progress Note ---
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 06/24/21: Daily PSV trials. Maybe ready for T-piece sson. Continue to wean steroids to off. IMS changed to 40q12 which is fine. Continue chest tube until off vent. Still on list for [place] but will discuss with CM about checking into LTACH as patient will need rehab. PT/OT consult. 06/21/21: Continue current level of sedation. Chest tube does not have air leak but there is clear evidence of a PTX on right. Stripped tube at bedside and will repeat CXR in the morning. Hold on weaning sedation for now and hold on PSV trials. May need second chest tube vs vats if PTX worsens or does not resolve. Patient still on list for [place], hopeful they will have a bed soon. Drop steroids to 40q8 starting Thursday. Monitor renal function, likely will improve. Needs more free water. Prognosis still remains guarded. 06/20/21: Restart some sedation. At least pain and maybe diprovan. Would like to wake patient up at some point and attempt some PSV trials. Labs are off this am. Large bump in white count but no fever, also no diff drawn. Could be error vs steroid related but this is in just 24 hours. Will repeat tomorrow. If spikes a temp neves culture as well. Small bump in Cr but still in normal range. Will watch. Now that peg in place, tube feeds and free water flushes. Still on list for [place]. Patient has been steroids greater than 7 days so will have to wean. Can drop to 60q8 starting tomorrow. Prognosis still remains guarded. 06/19/21: surgery to attempt trach and peg today. Still will ask to keep on transfer list for [place] as her other issues still need to be addressed. If able to place peg, can stop clinimix, give free water and start tube feeds. Prognosis remains guarded. pH better with drop in tidal volume. 06/18/21: [facility] has agreed to accept but no ICU beds available at this time. Spoke with Dr. Vasquez yesterday and Dr. Patricia spoke with ENT there. Spoke with RT this am and patient did have a leak when cuff let down and her tidal volumes dropped to below 100. Patient remains on abx and steriods. Will consider lightening sedation tomorrow and seeing how patient does if cuff leak persists. Dropped tidal volumes to 450. Continue PPN for now. 06/17/21: spoke with surgery and they feel transfer is reasonable. I have reached out to [place] and [facility] has spoken with someone from [place]. Await to hear back from them. Continue supportive measures and adequate sedation for pain control. No PSV trials as of yet. Blood sugar control, increase lantus. Most likely secondary to steroids. Continue abx therapy. Guarded prognosis. 06/16/21: Renal function improved with fluids. IMS to give more fluids (LR) today which I agree with. FeNa is =0.7. Should be fluid responsive. Continue clinimix. Needs long acting insulin. Agree with lantus. Asked nursing to increase sedation now that we know that patient's mental status is stable. Picc today. Air leak test vs Neck CT on tomorrow. 06/15/21: Hopeful with worsening renal function ( likely from code on yesterday) that sedatives are just lingering from that. Still making good urine but output has fallen off. Will send urine sodium and urine cr to check Fena. Most likely this is prerenal. ordered renal ultrasound as well. Continue abx and steroids. Will start clinimix today. This should help with the free water piece. Will give another liter bolus of LR right now. Keep sedation off for now. Guarded prognosis. 06/14/21: Will discuss with surgery future plans. They have ordered steroids to help with inflammation and abx continue. All others appears stable and no acute evidence of bleeding at this time. Follow up surgery recs if any new ones. Guarded prognosis. 06/13/21: Patient to back to OR today. BLood transfusion. Will send DIC panel and may need to given cryo if over 6 units of PRBC's given. Patient will likely need trach and peg as we need to address nutrition. Chest tube placed, large bore now. Patient now with right sided effusion. Hemothorax???. Will continue to monitor output. Needs picc line as femoral should come out soon. Continue pressors. Continue sedation for pain control and comfort. Guarded prognosis. Surgery comfortable with neck and current situation so they have not request transfer. 1. Placed right femoral central line. pressors can run through this. 2. Repeat chemistry stat given bicarb of 8 and blood sugar of greater than 600. Ordering FSBS now. Earlier bicarb was 25. If accurate will need bicarb drip and vasopressin but not sure as pH on blood gas was normal done around the same time. 3. Coagulopathy is improving. INR down to 4.55 and PTT and pT improving. Will continue to give FFP. Ordered more vitamin K. H/H is stable but patient is oozing from neck and mouth. 4. Vasopressor for blood pressure. Need to keep map 65 and greater 5. Lujan is needed for accurate I/O 6. Surgery called by IMS about current CT situation. They state they will reassess in the am. I have reviewed the images myself. If I can position the patient safely without compromising the airway after adequate sedation, may consider placing chest tube now as INR is better and FFP is hanging. Patient is morbidly obese so shits could move the ET tube so if not safe, will wait until surgery comes in the morning. 7. Would not attempt to pass OG or NG tube given current situation in neck 8. Will discuss with surgery tomorrow but I feel this patient should be transferred to a tertiary care facility with ENT as we do not have that service here. CCT 31 minutes. Subjective Date of service: 06/24/21 Interval history: Awake and alert. Following commands. Chest tube in lace. Sub Q air is much better today. Good urine output. Still with blood loss as H/H was less than 7 today. Getting blood. Remainder is negative. Objective Vital Signs - 12hr 06/23/21 06/23/21 06/24/21 23:00 23:30 00:00 Temperature 98.8 F Pulse Rate 106 H 103 H 108 H Pulse Rate [ 84 From Monitor] Respiratory 14 18 19 Rate Blood Pressure 147/64 147/64 113/62 O2 Sat by Pulse 98 99 100 Oximetry O2 Sat by Pulse 100 Oximetry [ Assessment] 06/24/21 06/24/21 06/24/21 00:30 01:00 01:30 Temperature Pulse Rate 92 H 102 H 92 H Pulse Rate [ From Monitor] Respiratory 18 17 18 Rate Blood Pressure 128/56 128/56 113/62 O2 Sat by Pulse 98 100 98 Oximetry O2 Sat by Pulse Oximetry [ Assessment] 06/24/21 06/24/21 06/24/21 02:00 02:30 03:00 Temperature Pulse Rate 91 H 87 88 Pulse Rate [ From Monitor] Respiratory 18 18 18 Rate Blood Pressure 109/46 109/46 128/60 O2 Sat by Pulse 98 98 99 Oximetry O2 Sat by Pulse Oximetry [ Assessment] 06/24/21 06/24/21 06/24/21 03:30 04:00 04:30 Temperature 97.8 F Pulse Rate 84 85 Pulse Rate [ 84 From Monitor] Respiratory 18 20 Rate Blood Pressure 128/60 111/54 111/54 O2 Sat by Pulse 100 100 100 Oximetry O2 Sat by Pulse Oximetry [ Assessment] 06/24/21 06/24/21 06/24/21 05:00 05:30 06:00 Temperature Pulse Rate 86 89 90 Pulse Rate [ From Monitor] Respiratory 18 18 25 H Rate Blood Pressure 152/71 152/71 136/65 O2 Sat by Pulse 100 100 98 Oximetry O2 Sat by Pulse Oximetry [ Assessment] 06/24/21 06/24/21 06/24/21 06:16 06:30 06:46 Temperature Pulse Rate 84 85 91 H Pulse Rate [ From Monitor] Respiratory 18 18 18 Rate Blood Pressure 136/65 136/65 136/65 O2 Sat by Pulse 100 100 87 Oximetry O2 Sat by Pulse Oximetry [ Assessment] 06/24/21 06/24/21 06/24/21 07:00 07:16 07:30 Temperature Pulse Rate 108 H 105 H 104 H Pulse Rate [ From Monitor] Respiratory 15 12 18 Rate Blood Pressure 126/62 126/62 126/62 O2 Sat by Pulse 100 100 100 Oximetry O2 Sat by Pulse Oximetry [ Assessment] 06/24/21 06/24/21 06/24/21 07:32 07:46 08:00 Temperature 99.7 F H Pulse Rate 103 H 108 H 104 H Pulse Rate [ From Monitor] Respiratory 19 17 Rate Blood Pressure 126/62 126/62 139/67 O2 Sat by Pulse 100 100 100 Oximetry O2 Sat by Pulse Oximetry [ Assessment] 06/24/21 06/24/21 06/24/21 08:16 08:30 08:46 Temperature Pulse Rate 99 H 92 H 113 H Pulse Rate [ From Monitor] Respiratory 17 14 16 Rate Blood Pressure 139/67 139/67 139/67 O2 Sat by Pulse 100 100 100 Oximetry O2 Sat by Pulse Oximetry [ Assessment] 06/24/21 06/24/21 06/24/21 08:54 09:00 09:16 Temperature Pulse Rate 96 H 95 H 98 H Pulse Rate [ From Monitor] Respiratory 14 14 25 H Rate Blood Pressure 139/67 150/72 150/72 O2 Sat by Pulse 100 100 98 Oximetry O2 Sat by Pulse Oximetry [ Assessment] 06/24/21 06/24/21 06/24/21 09:30 09:44 09:46 Temperature Pulse Rate 105 H 112 H 101 H Pulse Rate [ From Monitor] Respiratory 17 15 Rate Blood Pressure 150/72 150/72 150/72 O2 Sat by Pulse 97 100 Oximetry O2 Sat by Pulse Oximetry [ Assessment] 06/24/21 06/24/21 06/24/21 10:00 10:16 10:30 Temperature 98.2 F Pulse Rate 98 H 96 H 100 H Pulse Rate [ From Monitor] Respiratory 13 12 16 Rate Blood Pressure 150/80 150/80 165/86 O2 Sat by Pulse 100 100 92 Oximetry O2 Sat by Pulse Oximetry [ Assessment] 06/24/21 10:45 Temperature Pulse Rate 91 H Pulse Rate [ From Monitor] Respiratory 17 Rate Blood Pressure 148/65 O2 Sat by Pulse 99 Oximetry O2 Sat by Pulse Oximetry [ Assessment] Constitutional: alert, other (on vent trach in place) Eyes: non-icteric ENT: oropharynx moist Neck: other (trach in place) Ascultation: Bilateral: clear Percussion: Bilateral: not dull Cardiovascular: regular rate and rhythm Gastrointestinal: normoactive bowel sounds, soft Integumentary: other (subq emphysema) Extremities: no edema, other (subq emphysema) Neurologic: normal mental status CBC and BMP: 06/24/21 04:00 06/24/21 04:00 ABG, PT/INR, D-dimer: ABG ABG pH 7.426 pH Units (7.350-7.450) 06/21/21 04:20 POC ABG pCO2 25.6 mmHg (32.0-48.0) L 06/13/21 04:31 ABG pCO2 35.1 mm Hg 06/21/21 04:20 POC ABG pO2 138.8 mmHg (83-108) H 06/13/21 04:31 ABG pO2 98.5 mm Hg (80.0-90.0) H 06/21/21 04:20 POC ABG HCO3 21.4 06/13/21 04:31 ABG O2 Saturation 97.7 % (95.0-99.0) 06/21/21 04:20 PT/INR, D-dimer PT 18.3 Sec. (12.2-14.9) H 06/20/21 04:33 INR 1.37 (0.87-1.13) H 06/20/21 04:33 D-Dimer 1244.63 ng/mlDDU (0-234) H 06/13/21 Unknown Abnormal lab findings: Abnormal Labs 06/11/21 06/11/21 06/11/21 15:23 15:23 19:20 WBC 12.0 H RBC Hgb Hct MCV 72 L MCH 21 L RDW 17.5 H Plt Count Lymph % (Auto) 12.9 L [place] % (Auto) 8.6 H Lymph # (Auto) [place] # (Auto) 1.0 H Seg Neutrophils % 77.4 H Seg Neuts % (Manual) Lymphocytes % (Manual) Monocytes % (Manual) Seg Neutrophils # 9.3 H Seg Neutrophils # Man Lymphocytes # (Manual) Monocytes # (Manual) PT INR APTT Fibrinogen D-Dimer ABG pH POC ABG pCO2 POC ABG pO2 ABG pO2 ABG HCO3 ABG O2 Saturation ABG Base Excess ABG Hemoglobin ABG Oxyhemoglobin Oxyhemoglobin Sodium Potassium Chloride Carbon Dioxide BUN Creatinine Glucose 144 H POC Glucose Lactic Acid Calcium Phosphorus Magnesium AST ALT Alkaline Phosphatase C-Reactive Protein Total Protein Albumin Triglycerides Ur Specific [place] Urine Creatinine Crossmatch See Detail 06/11/21 06/11/21 06/11/21 19:29 19:29 23:21 WBC 15.8 H RBC Hgb 9.4 L Hct MCV 72 L MCH 22 L RDW 17.4 H Plt Count Lymph % (Auto) 9.2 L [place] % (Auto) Lymph # (Auto) [place] # (Auto) Seg Neutrophils % 89.0 H Seg Neuts % (Manual) Lymphocytes % (Manual) Monocytes % (Manual) Seg Neutrophils # 14.0 H Seg Neutrophils # Man Lymphocytes # (Manual) Monocytes # (Manual) PT 72.9 H INR 8.18 H* APTT 71.7 H* Fibrinogen D-Dimer ABG pH POC ABG pCO2 POC ABG pO2 ABG pO2 ABG HCO3 ABG O2 Saturation ABG Base Excess ABG Hemoglobin ABG Oxyhemoglobin Oxyhemoglobin Sodium 149 H D Potassium Chloride 124.3 H Carbon Dioxide 8 L* D BUN Creatinine 0.3 L Glucose 628 H* POC Glucose Lactic Acid Calcium 2.4 L* D Phosphorus Magnesium AST ALT < 5 L Alkaline Phosphatase 19 L C-Reactive Protein Total Protein 1.6 L D Albumin 0.8 L Triglycerides Ur Specific [place] Urine Creatinine Crossmatch 06/11/21 06/11/21 06/11/21 23:21 23:22 23:42 WBC RBC Hgb Hct MCV MCH 27 L RDW 22.2 H Plt Count 131 L Lymph % (Auto) [place] % (Auto) Lymph # (Auto) [place] # (Auto) Seg Neutrophils % Seg Neuts % (Manual) Lymphocytes % (Manual) Monocytes % (Manual) Seg Neutrophils # Seg Neutrophils # Man Lymphocytes # (Manual) Monocytes # (Manual) PT 46.3 H INR 4.55 H APTT 54.8 H Fibrinogen D-Dimer ABG pH POC ABG pCO2 POC ABG pO2 325.9 H ABG pO2 ABG HCO3 ABG O2 Saturation ABG Base Excess ABG Hemoglobin 8.0 L ABG Oxyhemoglobin 99.0 H Oxyhemoglobin Sodium Potassium Chloride Carbon Dioxide BUN Creatinine Glucose POC Glucose Lactic Acid Calcium Phosphorus Magnesium AST ALT Alkaline Phosphatase C-Reactive Protein Total Protein Albumin Triglycerides Ur Specific [place] Urine Creatinine Crossmatch 06/12/21 06/12/21 06/12/21 01:45 01:45 01:45 WBC 21.6 H RBC 3.04 L Hgb 6.7 L D Hct 22.4 L D MCV 74 L MCH 22 L RDW 18.9 H Plt Count Lymph % (Auto) [place] % (Auto) Lymph # (Auto) [place] # (Auto) Seg Neutrophils % Seg Neuts % (Manual) 76.0 H Lymphocytes % (Manual) 2.0 L Monocytes % (Manual) 8.0 H Seg Neutrophils # Seg Neutrophils # Man 16.4 H Lymphocytes # (Manual) 0.4 L Monocytes # (Manual) 1.7 H PT 25.4 H INR 2.10 H APTT Fibrinogen D-Dimer ABG pH POC ABG pCO2 POC ABG pO2 ABG pO2 ABG HCO3 ABG O2 Saturation ABG Base Excess ABG Hemoglobin ABG Oxyhemoglobin Oxyhemoglobin Sodium Potassium 5.6 H D Chloride Carbon Dioxide 20 L D BUN Creatinine Glucose 368 H POC Glucose Lactic Acid Calcium 7.1 L D Phosphorus Magnesium AST ALT Alkaline Phosphatase C-Reactive Protein Total Protein 5.3 L D Albumin 3.1 L Triglycerides Ur Specific [place] Urine Creatinine Crossmatch 06/12/21 06/12/21 06/12/21 02:05 04:41 11:05 WBC 14.6 H RBC 3.52 L Hgb 8.5 L Hct 27.7 L MCV MCH 24 L RDW 20.9 H Plt Count Lymph % (Auto) [place] % (Auto) Lymph # (Auto) [place] # (Auto) Seg Neutrophils % Seg Neuts % (Manual) Lymphocytes % (Manual) Monocytes % (Manual) Seg Neutrophils # Seg Neutrophils # Man Lymphocytes # (Manual) Monocytes # (Manual) PT INR APTT Fibrinogen D-Dimer ABG pH POC ABG pCO2 POC ABG pO2 224.6 H ABG pO2 ABG HCO3 ABG O2 Saturation ABG Base Excess ABG Hemoglobin 7.3 L ABG Oxyhemoglobin 98.7 H Oxyhemoglobin Sodium Potassium Chloride Carbon Dioxide BUN Creatinine Glucose POC Glucose 308 H Lactic Acid Calcium Phosphorus Magnesium AST ALT Alkaline Phosphatase C-Reactive Protein Total Protein Albumin Triglycerides Ur Specific [place] Urine Creatinine Crossmatch 06/12/21 06/12/21 06/12/21 11:05 11:05 12:18 WBC RBC Hgb Hct MCV MCH RDW Plt Count Lymph % (Auto) [place] % (Auto) Lymph # (Auto) [place] # (Auto) Seg Neutrophils % Seg Neuts % (Manual) Lymphocytes % (Manual) Monocytes % (Manual) Seg Neutrophils # Seg Neutrophils # Man Lymphocytes # (Manual) Monocytes # (Manual) PT 16.8 H INR 1.23 H APTT Fibrinogen D-Dimer ABG pH POC ABG pCO2 POC ABG pO2 ABG pO2 ABG HCO3 ABG O2 Saturation ABG Base Excess ABG Hemoglobin ABG Oxyhemoglobin Oxyhemoglobin Sodium Potassium Chloride Carbon Dioxide BUN 24 H Creatinine Glucose 324 H POC Glucose 281 H Lactic Acid Calcium 7.5 L Phosphorus Magnesium AST 70 H ALT 57 H Alkaline Phosphatase C-Reactive Protein Total Protein 6.0 L Albumin 3.6 L Triglycerides Ur Specific [place] Urine Creatinine Crossmatch 06/12/21 06/12/21 06/12/21 17:00 17:00 17:00 WBC RBC Hgb 7.5 L Hct 24.0 L MCV MCH RDW Plt Count Lymph % (Auto) [place] % (Auto) Lymph # (Auto) [place] # (Auto) Seg Neutrophils % Seg Neuts % (Manual) Lymphocytes % (Manual) Monocytes % (Manual) Seg Neutrophils # Seg Neutrophils # Man Lymphocytes # (Manual) Monocytes # (Manual) PT 16.0 H INR 1.16 H APTT Fibrinogen D-Dimer ABG pH POC ABG pCO2 POC ABG pO2 ABG pO2 ABG HCO3 ABG O2 Saturation ABG Base Excess ABG Hemoglobin ABG Oxyhemoglobin Oxyhemoglobin Sodium Potassium Chloride Carbon Dioxide BUN Creatinine Glucose POC Glucose Lactic Acid Calcium Phosphorus Magnesium AST ALT Alkaline Phosphatase C-Reactive Protein Total Protein Albumin Triglycerides Ur Specific [place] 1.035 H Urine Creatinine Crossmatch 06/12/21 06/12/21 06/12/21 18:06 23:00 23:05 WBC RBC Hgb 7.6 L Hct 23.5 L MCV MCH RDW Plt Count Lymph % (Auto) [place] % (Auto) Lymph # (Auto) [place] # (Auto) Seg Neutrophils % Seg Neuts % (Manual) Lymphocytes % (Manual) Monocytes % (Manual) Seg Neutrophils # Seg Neutrophils # Man Lymphocytes # (Manual) Monocytes # (Manual) PT INR APTT Fibrinogen D-Dimer ABG pH POC ABG pCO2 POC ABG pO2 ABG pO2 ABG HCO3 ABG O2 Saturation ABG Base Excess ABG Hemoglobin ABG Oxyhemoglobin Oxyhemoglobin Sodium Potassium Chloride Carbon Dioxide BUN Creatinine Glucose POC Glucose 257 H 300 H Lactic Acid Calcium Phosphorus Magnesium AST ALT Alkaline Phosphatase C-Reactive Protein Total Protein Albumin Triglycerides Ur Specific [place] Urine Creatinine Crossmatch 06/13/21 06/13/21 06/13/21 04:31 05:19 07:30 WBC RBC Hgb 6.8 L Hct 21.7 L MCV MCH RDW Plt Count Lymph % (Auto) [place] % (Auto) Lymph # (Auto) [place] # (Auto) Seg Neutrophils % Seg Neuts % (Manual) Lymphocytes % (Manual) Monocytes % (Manual) Seg Neutrophils # Seg Neutrophils # Man Lymphocytes # (Manual) Monocytes # (Manual) PT INR APTT Fibrinogen D-Dimer ABG pH 7.541 H POC ABG pCO2 25.6 L POC ABG pO2 138.8 H ABG pO2 ABG HCO3 ABG O2 Saturation ABG Base Excess ABG Hemoglobin 7.3 L ABG Oxyhemoglobin 98.1 H Oxyhemoglobin Sodium Potassium Chloride Carbon Dioxide BUN Creatinine Glucose POC Glucose 286 H Lactic Acid Calcium Phosphorus Magnesium AST ALT Alkaline Phosphatase C-Reactive Protein Total Protein Albumin Triglycerides Ur Specific [place] Urine Creatinine Crossmatch 06/13/21 06/13/21 06/13/21 07:30 12:04 14:50 WBC RBC Hgb Hct MCV MCH RDW Plt Count Lymph % (Auto) [place] % (Auto) Lymph # (Auto) [place] # (Auto) Seg Neutrophils % Seg Neuts % (Manual) Lymphocytes % (Manual) Monocytes % (Manual) Seg Neutrophils # Seg Neutrophils # Man Lymphocytes # (Manual) Monocytes # (Manual) PT INR APTT Fibrinogen D-Dimer ABG pH 7.039 L* 7.182 L* POC ABG pCO2 POC ABG pO2 ABG pO2 63.1 L ABG HCO3 17.4 L ABG O2 Saturation 73.4 L ABG Base Excess -12.6 L -7.1 L ABG Hemoglobin 7.7 L 6.9 L ABG Oxyhemoglobin Oxyhemoglobin 71.8 L 93.5 L Sodium Potassium Chloride 108.9 H Carbon Dioxide BUN 28 H Creatinine Glucose 293 H POC Glucose Lactic Acid Calcium 7.2 L Phosphorus Magnesium AST 106 H ALT 92 H Alkaline Phosphatase C-Reactive Protein Total Protein 5.6 L Albumin 3.3 L Triglycerides Ur Specific [place] Urine Creatinine Crossmatch 06/13/21 06/13/21 06/13/21 14:54 15:45 17:34 WBC RBC Hgb Hct MCV MCH RDW Plt Count Lymph % (Auto) [place] % (Auto) Lymph # (Auto) [place] # (Auto) Seg Neutrophils % Seg Neuts % (Manual) Lymphocytes % (Manual) Monocytes % (Manual) Seg Neutrophils # Seg Neutrophils # Man Lymphocytes # (Manual) Monocytes # (Manual) PT INR APTT Fibrinogen D-Dimer ABG pH POC ABG pCO2 POC ABG pO2 ABG pO2 178.4 H ABG HCO3 ABG O2 Saturation 99.1 H ABG Base Excess ABG Hemoglobin 8.0 L ABG Oxyhemoglobin Oxyhemoglobin Sodium Potassium Chloride 107.3 H Carbon Dioxide 19 L BUN 33 H Creatinine 1.5 H Glucose 379 H POC Glucose Lactic Acid 5.30 H* Calcium 6.8 L Phosphorus Magnesium AST ALT Alkaline Phosphatase C-Reactive Protein Total Protein Albumin Triglycerides Ur Specific [place] Urine Creatinine Crossmatch 0206/13/21 06/13/21 17:40 23:29 Unknown WBC 22.5 H RBC 3.16 L Hgb 8.0 L Hct 26.0 L MCV MCH 26 L RDW 21.4 H Plt Count Lymph % (Auto) [place] % (Auto) Lymph # (Auto) [place] # (Auto) Seg Neutrophils % Seg Neuts % (Manual) 88.0 H Lymphocytes % (Manual) 4.0 L Monocytes % (Manual) Seg Neutrophils # Seg Neutrophils # Man 19.8 H Lymphocytes # (Manual) 0.9 L Monocytes # (Manual) 1.4 H PT INR APTT Fibrinogen D-Dimer ABG pH POC ABG pCO2 POC ABG pO2 ABG pO2 ABG HCO3 ABG O2 Saturation ABG Base Excess ABG Hemoglobin ABG Oxyhemoglobin Oxyhemoglobin Sodium Potassium Chloride Carbon Dioxide BUN Creatinine Glucose POC Glucose 294 H 288 H Lactic Acid Calcium Phosphorus Magnesium AST ALT Alkaline Phosphatase C-Reactive Protein Total Protein Albumin Triglycerides Ur Specific [place] Urine Creatinine Crossmatch 06/13/21 06/14/21 06/14/21 Unknown 05:39 06:15 WBC RBC 2.93 L Hgb 7.2 L Hct 23.2 L MCV MCH 25 L RDW 21.2 H Plt Count Lymph % (Auto) [place] % (Auto) Lymph # (Auto) [place] # (Auto) Seg Neutrophils % Seg Neuts % (Manual) Lymphocytes % (Manual) Monocytes % (Manual) Seg Neutrophils # Seg Neutrophils # Man Lymphocytes # (Manual) Monocytes # (Manual) PT 17.6 H INR 1.31 H APTT Fibrinogen 546 H D-Dimer 1244.63 H ABG pH POC ABG pCO2 POC ABG pO2 ABG pO2 ABG HCO3 ABG O2 Saturation ABG Base Excess ABG Hemoglobin ABG Oxyhemoglobin Oxyhemoglobin Sodium Potassium Chloride Carbon Dioxide BUN Creatinine Glucose POC Glucose 246 H Lactic Acid Calcium Phosphorus Magnesium AST ALT Alkaline Phosphatase C-Reactive Protein Total Protein Albumin Triglycerides Ur Specific [place] Urine Creatinine Crossmatch 06/14/21 06/14/21 06/14/21 06:15 06:15 09:13 WBC RBC Hgb Hct MCV MCH RDW Plt Count Lymph % (Auto) [place] % (Auto) Lymph # (Auto) [place] # (Auto) Seg Neutrophils % Seg Neuts % (Manual) Lymphocytes % (Manual) Monocytes % (Manual) Seg Neutrophils # Seg Neutrophils # Man Lymphocytes # (Manual) Monocytes # (Manual) PT INR APTT Fibrinogen D-Dimer ABG pH POC ABG pCO2 POC ABG pO2 ABG pO2 183.0 H ABG HCO3 ABG O2 Saturation 99.2 H ABG Base Excess ABG Hemoglobin 6.6 L ABG Oxyhemoglobin Oxyhemoglobin Sodium 147 H Potassium Chloride 112.5 H Carbon Dioxide 21 L BUN 36 H Creatinine 1.4 H Glucose 281 H POC Glucose Lactic Acid Calcium 6.9 L Phosphorus Magnesium AST ALT Alkaline Phosphatase C-Reactive Protein Total Protein Albumin Triglycerides 189 H Ur Specific [place] Urine Creatinine Crossmatch 06/14/21 06/14/21 06/14/21 10:45 12:16 13:30 WBC RBC Hgb 7.1 L Hct 22.3 L MCV MCH RDW Plt Count Lymph % (Auto) [place] % (Auto) Lymph # (Auto) [place] # (Auto) Seg Neutrophils % Seg Neuts % (Manual) Lymphocytes % (Manual) Monocytes % (Manual) Seg Neutrophils # Seg Neutrophils # Man Lymphocytes # (Manual) Monocytes # (Manual) PT INR APTT Fibrinogen D-Dimer ABG pH 7.205 L POC ABG pCO2 POC ABG pO2 ABG pO2 261.3 H ABG HCO3 ABG O2 Saturation 99.4 H ABG Base Excess -7.2 L ABG Hemoglobin 7.6 L ABG Oxyhemoglobin Oxyhemoglobin Sodium Potassium Chloride Carbon Dioxide BUN Creatinine Glucose POC Glucose 174 H Lactic Acid Calcium Phosphorus Magnesium AST ALT Alkaline Phosphatase C-Reactive Protein Total Protein Albumin Triglycerides Ur Specific [place] Urine Creatinine Crossmatch 06/14/21 06/14/21 06/15/21 17:40 18:43 00:06 WBC RBC Hgb Hct MCV MCH RDW Plt Count Lymph % (Auto) [place] % (Auto) Lymph # (Auto) [place] # (Auto) Seg Neutrophils % Seg Neuts % (Manual) Lymphocytes % (Manual) Monocytes % (Manual) Seg Neutrophils # Seg Neutrophils # Man Lymphocytes # (Manual) Monocytes # (Manual) PT INR APTT Fibrinogen D-Dimer ABG pH 7.292 L POC ABG pCO2 POC ABG pO2 ABG pO2 78.8 L ABG HCO3 ABG O2 Saturation ABG Base Excess -5.0 L ABG Hemoglobin 9.1 L ABG Oxyhemoglobin Oxyhemoglobin 93.7 L Sodium Potassium Chloride Carbon Dioxide BUN Creatinine Glucose POC Glucose 182 H 144 H Lactic Acid Calcium Phosphorus Magnesium AST ALT Alkaline Phosphatase C-Reactive Protein Total Protein Albumin Triglycerides Ur Specific [place] Urine Creatinine Crossmatch 06/15/21 06/15/21 06/15/21 03:55 03:56 10:40 WBC RBC Hgb 8.4 L Hct 25.8 L MCV MCH RDW Plt Count Lymph % (Auto) [place] % (Auto) Lymph # (Auto) [place] # (Auto) Seg Neutrophils % Seg Neuts % (Manual) Lymphocytes % (Manual) Monocytes % (Manual) Seg Neutrophils # Seg Neutrophils # Man Lymphocytes # (Manual) Monocytes # (Manual) PT INR APTT Fibrinogen D-Dimer ABG pH POC ABG pCO2 POC ABG pO2 ABG pO2 ABG HCO3 ABG O2 Saturation ABG Base Excess ABG Hemoglobin ABG Oxyhemoglobin Oxyhemoglobin Sodium 147 H Potassium Chloride 112.2 H Carbon Dioxide 21 L BUN 47 H Creatinine 1.9 H Glucose 272 H POC Glucose Lactic Acid Calcium 7.3 L Phosphorus Magnesium AST 64 H ALT 106 H Alkaline Phosphatase C-Reactive Protein Total Protein 5.1 L Albumin 2.9 L Triglycerides Ur Specific [place] Urine Creatinine 81.1 H Crossmatch 06/15/21 06/15/21 06/15/21 11:46 17:16 23:17 WBC RBC Hgb Hct MCV MCH RDW Plt Count Lymph % (Auto) [place] % (Auto) Lymph # (Auto) [place] # (Auto) Seg Neutrophils % Seg Neuts % (Manual) Lymphocytes % (Manual) Monocytes % (Manual) Seg Neutrophils # Seg Neutrophils # Man Lymphocytes # (Manual) Monocytes # (Manual) PT INR APTT Fibrinogen D-Dimer ABG pH POC ABG pCO2 POC ABG pO2 ABG pO2 ABG HCO3 ABG O2 Saturation ABG Base Excess ABG Hemoglobin ABG Oxyhemoglobin Oxyhemoglobin Sodium Potassium Chloride Carbon Dioxide BUN Creatinine Glucose POC Glucose 271 H 268 H 264 H Lactic Acid Calcium Phosphorus Magnesium AST ALT Alkaline Phosphatase C-Reactive Protein Total Protein Albumin Triglycerides Ur Specific [place] Urine Creatinine Crossmatch 06/15/21 06/15/21 06/16/21 Unknown Unknown 04:32 WBC RBC 3.21 L 3.16 L Hgb 8.4 L 8.2 L Hct 26.1 L 25.4 L MCV MCH 26 L 26 L RDW 21.3 H 21.2 H Plt Count 105 L 118 L Lymph % (Auto) [place] % (Auto) Lymph # (Auto) [place] # (Auto) Seg Neutrophils % Seg Neuts % (Manual) Lymphocytes % (Manual) Monocytes % (Manual) Seg Neutrophils # Seg Neutrophils # Man Lymphocytes # (Manual) Monocytes # (Manual) PT INR APTT Fibrinogen D-Dimer ABG pH 7.465 H POC ABG pCO2 POC ABG pO2 ABG pO2 114.1 H ABG HCO3 ABG O2 Saturation ABG Base Excess ABG Hemoglobin 8.4 L ABG Oxyhemoglobin Oxyhemoglobin Sodium Potassium Chloride Carbon Dioxide BUN Creatinine Glucose POC Glucose Lactic Acid Calcium Phosphorus Magnesium AST ALT Alkaline Phosphatase C-Reactive Protein Total Protein Albumin Triglycerides Ur Specific [place] Urine Creatinine Crossmatch 06/16/21 06/16/21 06/16/21 04:32 04:32 05:08 WBC RBC Hgb Hct MCV MCH RDW Plt Count Lymph % (Auto) [place] % (Auto) Lymph # (Auto) [place] # (Auto) Seg Neutrophils % Seg Neuts % (Manual) Lymphocytes % (Manual) Monocytes % (Manual) Seg Neutrophils # Seg Neutrophils # Man Lymphocytes # (Manual) Monocytes # (Manual) PT INR APTT Fibrinogen D-Dimer ABG pH POC ABG pCO2 POC ABG pO2 ABG pO2 ABG HCO3 ABG O2 Saturation ABG Base Excess ABG Hemoglobin ABG Oxyhemoglobin Oxyhemoglobin Sodium 148 H Potassium 3.3 L Chloride 115.1 H Carbon Dioxide 21 L BUN 54 H Creatinine 1.6 H Glucose 367 H POC Glucose 356 H Lactic Acid Calcium 7.4 L Phosphorus Magnesium AST ALT Alkaline Phosphatase C-Reactive Protein 3.30 H Total Protein Albumin Triglycerides Ur Specific [place] Urine Creatinine Crossmatch 06/16/21 06/16/21 06/16/21 05:30 11:46 17:03 WBC RBC Hgb Hct MCV MCH RDW Plt Count Lymph % (Auto) [place] % (Auto) Lymph # (Auto) [place] # (Auto) Seg Neutrophils % Seg Neuts % (Manual) Lymphocytes % (Manual) Monocytes % (Manual) Seg Neutrophils # Seg Neutrophils # Man Lymphocytes # (Manual) Monocytes # (Manual) PT INR APTT Fibrinogen D-Dimer ABG pH 7.475 H POC ABG pCO2 POC ABG pO2 ABG pO2 171.8 H ABG HCO3 ABG O2 Saturation 99.1 H ABG Base Excess ABG Hemoglobin 11.7 L ABG Oxyhemoglobin Oxyhemoglobin Sodium Potassium Chloride Carbon Dioxide BUN Creatinine Glucose POC Glucose 309 H 345 H Lactic Acid Calcium Phosphorus Magnesium AST ALT Alkaline Phosphatase C-Reactive Protein Total Protein Albumin Triglycerides Ur Specific [place] Urine Creatinine Crossmatch 06/16/21 06/16/21 06/17/21 20:18 23:22 04:50 WBC RBC Hgb Hct MCV MCH RDW Plt Count Lymph % (Auto) [place] % (Auto) Lymph # (Auto) [place] # (Auto) Seg Neutrophils % Seg Neuts % (Manual) Lymphocytes % (Manual) Monocytes % (Manual) Seg Neutrophils # Seg Neutrophils # Man Lymphocytes # (Manual) Monocytes # (Manual) PT INR APTT Fibrinogen D-Dimer ABG pH 7.479 H POC ABG pCO2 POC ABG pO2 ABG pO2 143.1 H ABG HCO3 ABG O2 Saturation ABG Base Excess ABG Hemoglobin 10.0 L ABG Oxyhemoglobin Oxyhemoglobin Sodium Potassium Chloride Carbon Dioxide BUN Creatinine Glucose POC Glucose 325 H 315 H Lactic Acid Calcium Phosphorus Magnesium AST ALT Alkaline Phosphatase C-Reactive Protein Total Protein Albumin Triglycerides Ur Specific [place] Urine Creatinine Crossmatch 06/17/21 06/17/21 06/17/21 05:18 05:30 05:30 WBC RBC 3.17 L Hgb 8.2 L Hct 25.5 L MCV MCH 26 L RDW 21.2 H Plt Count 128 L Lymph % (Auto) [place] % (Auto) Lymph # (Auto) [place] # (Auto) Seg Neutrophils % Seg Neuts % (Manual) Lymphocytes % (Manual) Monocytes % (Manual) Seg Neutrophils # Seg Neutrophils # Man Lymphocytes # (Manual) Monocytes # (Manual) PT INR APTT Fibrinogen D-Dimer ABG pH POC ABG pCO2 POC ABG pO2 ABG pO2 ABG HCO3 ABG O2 Saturation ABG Base Excess ABG Hemoglobin ABG Oxyhemoglobin Oxyhemoglobin Sodium 148 H Potassium Chloride 113.7 H Carbon Dioxide 20 L BUN 57 H Creatinine 1.4 H Glucose 351 H POC Glucose 324 H Lactic Acid Calcium 8.0 L Phosphorus 2.30 L Magnesium AST ALT Alkaline Phosphatase C-Reactive Protein Total Protein Albumin Triglycerides Ur Specific [place] Urine Creatinine Crossmatch 06/17/21 06/17/21 06/17/21 11:49 17:43 21:42 WBC RBC Hgb Hct MCV MCH RDW Plt Count Lymph % (Auto) [place] % (Auto) Lymph # (Auto) [place] # (Auto) Seg Neutrophils % Seg Neuts % (Manual) Lymphocytes % (Manual) Monocytes % (Manual) Seg Neutrophils # Seg Neutrophils # Man Lymphocytes # (Manual) Monocytes # (Manual) PT INR APTT Fibrinogen D-Dimer ABG pH POC ABG pCO2 POC ABG pO2 ABG pO2 ABG HCO3 ABG O2 Saturation ABG Base Excess ABG Hemoglobin ABG Oxyhemoglobin Oxyhemoglobin Sodium Potassium Chloride Carbon Dioxide BUN Creatinine Glucose POC Glucose 305 H 307 H 286 H Lactic Acid Calcium Phosphorus Magnesium AST ALT Alkaline Phosphatase C-Reactive Protein Total Protein Albumin Triglycerides Ur Specific [place] Urine Creatinine Crossmatch 06/17/21 06/18/21 06/18/21 23:59 04:20 04:37 WBC RBC 3.53 L Hgb 9.1 L Hct 28.7 L MCV MCH 26 L RDW 21.3 H Plt Count Lymph % (Auto) [place] % (Auto) Lymph # (Auto) [place] # (Auto) Seg Neutrophils % Seg Neuts % (Manual) Lymphocytes % (Manual) Monocytes % (Manual) Seg Neutrophils # Seg Neutrophils # Man Lymphocytes # (Manual) Monocytes # (Manual) PT INR APTT Fibrinogen D-Dimer ABG pH 7.495 H POC ABG pCO2 POC ABG pO2 ABG pO2 108.3 H ABG HCO3 ABG O2 Saturation ABG Base Excess -2.1 L ABG Hemoglobin 10.0 L ABG Oxyhemoglobin Oxyhemoglobin Sodium Potassium Chloride Carbon Dioxide BUN Creatinine Glucose POC Glucose 264 H Lactic Acid Calcium Phosphorus Magnesium AST ALT Alkaline Phosphatase C-Reactive Protein Total Protein Albumin Triglycerides Ur Specific [place] Urine Creatinine Crossmatch 06/18/21 06/18/21 06/18/21 04:37 05:32 11:21 WBC RBC Hgb Hct MCV MCH RDW Plt Count Lymph % (Auto) [place] % (Auto) Lymph # (Auto) [place] # (Auto) Seg Neutrophils % Seg Neuts % (Manual) Lymphocytes % (Manual) Monocytes % (Manual) Seg Neutrophils # Seg Neutrophils # Man Lymphocytes # (Manual) Monocytes # (Manual) PT INR APTT Fibrinogen D-Dimer ABG pH POC ABG pCO2 POC ABG pO2 ABG pO2 ABG HCO3 ABG O2 Saturation ABG Base Excess ABG Hemoglobin ABG Oxyhemoglobin Oxyhemoglobin Sodium 148 H Potassium Chloride 114.7 H Carbon Dioxide BUN 59 H Creatinine 1.3 H Glucose 329 H POC Glucose 293 H 291 H Lactic Acid Calcium 8.1 L Phosphorus Magnesium AST ALT Alkaline Phosphatase C-Reactive Protein Total Protein Albumin Triglycerides Ur Specific [place] Urine Creatinine Crossmatch 06/18/21 06/18/21 06/19/21 18:21 21:46 00:15 WBC RBC Hgb Hct MCV MCH RDW Plt Count Lymph % (Auto) [place] % (Auto) Lymph # (Auto) [place] # (Auto) Seg Neutrophils % Seg Neuts % (Manual) Lymphocytes % (Manual) Monocytes % (Manual) Seg Neutrophils # Seg Neutrophils # Man Lymphocytes # (Manual) Monocytes # (Manual) PT INR APTT Fibrinogen D-Dimer ABG pH POC ABG pCO2 POC ABG pO2 ABG pO2 ABG HCO3 ABG O2 Saturation ABG Base Excess ABG Hemoglobin ABG Oxyhemoglobin Oxyhemoglobin Sodium Potassium Chloride Carbon Dioxide BUN Creatinine Glucose POC Glucose 239 H 259 H 310 H Lactic Acid Calcium Phosphorus Magnesium AST ALT Alkaline Phosphatase C-Reactive Protein Total Protein Albumin Triglycerides Ur Specific [place] Urine Creatinine Crossmatch 06/19/21 06/19/21 06/19/21 04:00 04:00 04:50 WBC RBC 3.64 L Hgb 9.1 L Hct 29.1 L MCV MCH 25 L RDW 21.5 H Plt Count Lymph % (Auto) [place] % (Auto) Lymph # (Auto) [place] # (Auto) Seg Neutrophils % Seg Neuts % (Manual) Lymphocytes % (Manual) Monocytes % (Manual) Seg Neutrophils # Seg Neutrophils # Man Lymphocytes # (Manual) Monocytes # (Manual) PT INR APTT Fibrinogen D-Dimer ABG pH POC ABG pCO2 POC ABG pO2 ABG pO2 78.9 L ABG HCO3 ABG O2 Saturation ABG Base Excess -3.2 L ABG Hemoglobin 7.6 L ABG Oxyhemoglobin Oxyhemoglobin Sodium 148 H Potassium Chloride 114.9 H Carbon Dioxide 19 L BUN 59 H Creatinine Glucose 345 H POC Glucose Lactic Acid Calcium 8.1 L Phosphorus 4.60 H D Magnesium 2.40 H AST ALT Alkaline Phosphatase C-Reactive Protein Total Protein Albumin Triglycerides Ur Specific [place] Urine Creatinine Crossmatch 06/19/21 06/19/21 06/19/21 06:28 11:11 17:20 WBC RBC Hgb Hct MCV MCH RDW Plt Count Lymph % (Auto) [place] % (Auto) Lymph # (Auto) [place] # (Auto) Seg Neutrophils % Seg Neuts % (Manual) Lymphocytes % (Manual) Monocytes % (Manual) Seg Neutrophils # Seg Neutrophils # Man Lymphocytes # (Manual) Monocytes # (Manual) PT 29.7 H INR 2.57 H APTT Fibrinogen D-Dimer ABG pH POC ABG pCO2 POC ABG pO2 ABG pO2 ABG HCO3 ABG O2 Saturation ABG Base Excess ABG Hemoglobin ABG Oxyhemoglobin Oxyhemoglobin Sodium Potassium Chloride Carbon Dioxide BUN Creatinine Glucose POC Glucose 279 H 275 H Lactic Acid Calcium Phosphorus Magnesium AST ALT Alkaline Phosphatase C-Reactive Protein Total Protein Albumin Triglycerides Ur Specific [place] Urine Creatinine Crossmatch 06/19/21 06/19/21 06/19/21 18:30 19:20 23:27 WBC RBC Hgb 8.0 L Hct 25.0 L MCV MCH RDW Plt Count Lymph % (Auto) [place] % (Auto) Lymph # (Auto) [place] # (Auto) Seg Neutrophils % Seg Neuts % (Manual) Lymphocytes % (Manual) Monocytes % (Manual) Seg Neutrophils # Seg Neutrophils # Man Lymphocytes # (Manual) Monocytes # (Manual) PT INR APTT Fibrinogen D-Dimer ABG pH POC ABG pCO2 POC ABG pO2 ABG pO2 ABG HCO3 ABG O2 Saturation ABG Base Excess ABG Hemoglobin ABG Oxyhemoglobin Oxyhemoglobin Sodium Potassium Chloride Carbon Dioxide BUN Creatinine Glucose POC Glucose 279 H 290 H Lactic Acid Calcium Phosphorus Magnesium AST ALT Alkaline Phosphatase C-Reactive Protein Total Protein Albumin Triglycerides Ur Specific [place] Urine Creatinine Crossmatch 06/20/21 06/20/21 06/20/21 00:00 04:33 04:33 WBC 22.3 H RBC 3.31 L Hgb 7.4 L 8.5 L Hct 22.5 L 26.5 L MCV MCH 26 L RDW 21.5 H Plt Count Lymph % (Auto) [place] % (Auto) Lymph # (Auto) [place] # (Auto) Seg Neutrophils % Seg Neuts % (Manual) Lymphocytes % (Manual) Monocytes % (Manual) Seg Neutrophils # Seg Neutrophils # Man Lymphocytes # (Manual) Monocytes # (Manual) PT INR APTT Fibrinogen D-Dimer ABG pH POC ABG pCO2 POC ABG pO2 ABG pO2 ABG HCO3 ABG O2 Saturation ABG Base Excess ABG Hemoglobin ABG Oxyhemoglobin Oxyhemoglobin Sodium 148 H Potassium Chloride 114.2 H Carbon Dioxide BUN 70 H Creatinine 1.4 H Glucose 313 H POC Glucose Lactic Acid Calcium 8.2 L Phosphorus Magnesium 2.50 H AST ALT Alkaline Phosphatase C-Reactive Protein Total Protein Albumin Triglycerides Ur Specific [place] Urine Creatinine Crossmatch 06/20/21 06/20/21 06/20/21 04:33 05:27 11:21 WBC RBC Hgb Hct MCV MCH RDW Plt Count Lymph % (Auto) [place] % (Auto) Lymph # (Auto) [place] # (Auto) Seg Neutrophils % Seg Neuts % (Manual) Lymphocytes % (Manual) Monocytes % (Manual) Seg Neutrophils # Seg Neutrophils # Man Lymphocytes # (Manual) Monocytes # (Manual) PT 18.3 H INR 1.37 H APTT Fibrinogen D-Dimer ABG pH POC ABG pCO2 POC ABG pO2 ABG pO2 ABG HCO3 ABG O2 Saturation ABG Base Excess ABG Hemoglobin ABG Oxyhemoglobin Oxyhemoglobin Sodium Potassium Chloride Carbon Dioxide BUN Creatinine Glucose POC Glucose 288 H 306 H Lactic Acid Calcium Phosphorus Magnesium AST ALT Alkaline Phosphatase C-Reactive Protein Total Protein Albumin Triglycerides Ur Specific [place] Urine Creatinine Crossmatch 06/20/21 06/20/21 06/20/21 12:23 15:56 18:20 WBC RBC Hgb 8.2 L 8.1 L Hct 25.9 L 25.5 L MCV MCH RDW Plt Count Lymph % (Auto) [place] % (Auto) Lymph # (Auto) [place] # (Auto) Seg Neutrophils % Seg Neuts % (Manual) Lymphocytes % (Manual) Monocytes % (Manual) Seg Neutrophils # Seg Neutrophils # Man Lymphocytes # (Manual) Monocytes # (Manual) PT INR APTT Fibrinogen D-Dimer ABG pH POC ABG pCO2 POC ABG pO2 ABG pO2 ABG HCO3 ABG O2 Saturation ABG Base Excess ABG Hemoglobin ABG Oxyhemoglobin Oxyhemoglobin Sodium Potassium Chloride Carbon Dioxide BUN Creatinine Glucose POC Glucose 293 H Lactic Acid Calcium Phosphorus Magnesium AST ALT Alkaline Phosphatase C-Reactive Protein Total Protein Albumin Triglycerides Ur Specific [place] Urine Creatinine Crossmatch 06/20/21 06/21/21 06/21/21 23:11 04:20 04:42 WBC 15.1 H RBC 2.84 L Hgb 7.3 L Hct 23.1 L MCV MCH 26 L RDW 21.5 H Plt Count Lymph % (Auto) 3.5 L [place] % (Auto) 11.7 H Lymph # (Auto) 0.5 L [place] # (Auto) 1.8 H Seg Neutrophils % 84.7 H Seg Neuts % (Manual) Lymphocytes % (Manual) Monocytes % (Manual) Seg Neutrophils # 12.8 H Seg Neutrophils # Man Lymphocytes # (Manual) Monocytes # (Manual) PT INR APTT Fibrinogen D-Dimer ABG pH POC ABG pCO2 POC ABG pO2 ABG pO2 98.5 H ABG HCO3 ABG O2 Saturation ABG Base Excess ABG Hemoglobin 7.2 L ABG Oxyhemoglobin Oxyhemoglobin Sodium Potassium Chloride Carbon Dioxide BUN Creatinine Glucose POC Glucose 206 H Lactic Acid Calcium Phosphorus Magnesium AST ALT Alkaline Phosphatase C-Reactive Protein Total Protein Albumin Triglycerides Ur Specific [place] Urine Creatinine Crossmatch 06/21/21 06/21/21 06/21/21 04:42 05:08 11:06 WBC RBC Hgb Hct MCV MCH RDW Plt Count Lymph % (Auto) [place] % (Auto) Lymph # (Auto) [place] # (Auto) Seg Neutrophils % Seg Neuts % (Manual) Lymphocytes % (Manual) Monocytes % (Manual) Seg Neutrophils # Seg Neutrophils # Man Lymphocytes # (Manual) Monocytes # (Manual) PT INR APTT Fibrinogen D-Dimer ABG pH POC ABG pCO2 POC ABG pO2 ABG pO2 ABG HCO3 ABG O2 Saturation ABG Base Excess ABG Hemoglobin ABG Oxyhemoglobin Oxyhemoglobin Sodium 151 H Potassium Chloride 117.2 H Carbon Dioxide 21 L BUN 75 H Creatinine 1.6 H Glucose 216 H POC Glucose 190 H 204 H Lactic Acid Calcium 7.9 L Phosphorus Magnesium 2.60 H AST ALT Alkaline Phosphatase C-Reactive Protein Total Protein Albumin Triglycerides 254 H Ur Specific [place] Urine Creatinine Crossmatch 06/21/21 06/21/21 06/21/21 14:00 16:42 21:52 WBC RBC Hgb 7.1 L 7.2 L Hct 22.0 L 22.1 L MCV MCH RDW Plt Count Lymph % (Auto) [place] % (Auto) Lymph # (Auto) [place] # (Auto) Seg Neutrophils % Seg Neuts % (Manual) Lymphocytes % (Manual) Monocytes % (Manual) Seg Neutrophils # Seg Neutrophils # Man Lymphocytes # (Manual) Monocytes # (Manual) PT INR APTT Fibrinogen D-Dimer ABG pH POC ABG pCO2 POC ABG pO2 ABG pO2 ABG HCO3 ABG O2 Saturation ABG Base Excess ABG Hemoglobin ABG Oxyhemoglobin Oxyhemoglobin Sodium Potassium Chloride Carbon Dioxide BUN Creatinine Glucose POC Glucose 207 H Lactic Acid Calcium Phosphorus Magnesium AST ALT Alkaline Phosphatase C-Reactive Protein Total Protein Albumin Triglycerides Ur Specific [place] Urine Creatinine Crossmatch 06/21/21 06/22/21 06/22/21 23:29 04:30 04:30 WBC 16.8 H RBC 2.93 L Hgb 7.4 L Hct 23.9 L MCV MCH 25 L RDW 21.8 H Plt Count Lymph % (Auto) [place] % (Auto) Lymph # (Auto) [place] # (Auto) Seg Neutrophils % Seg Neuts % (Manual) Lymphocytes % (Manual) Monocytes % (Manual) Seg Neutrophils # Seg Neutrophils # Man Lymphocytes # (Manual) Monocytes # (Manual) PT INR APTT Fibrinogen D-Dimer ABG pH POC ABG pCO2 POC ABG pO2 ABG pO2 ABG HCO3 ABG O2 Saturation ABG Base Excess ABG Hemoglobin ABG Oxyhemoglobin Oxyhemoglobin Sodium 151 H Potassium Chloride 118.7 H Carbon Dioxide BUN 57 H Creatinine Glucose 238 H POC Glucose 273 H Lactic Acid Calcium 8.0 L Phosphorus Magnesium 2.70 H AST ALT Alkaline Phosphatase C-Reactive Protein Total Protein Albumin Triglycerides Ur Specific [place] Urine Creatinine Crossmatch 06/22/21 06/22/21 06/22/21 05:17 11:31 14:20 WBC RBC Hgb 7.4 L Hct 22.5 L MCV MCH RDW Plt Count Lymph % (Auto) [place] % (Auto) Lymph # (Auto) [place] # (Auto) Seg Neutrophils % Seg Neuts % (Manual) Lymphocytes % (Manual) Monocytes % (Manual) Seg Neutrophils # Seg Neutrophils # Man Lymphocytes # (Manual) Monocytes # (Manual) PT INR APTT Fibrinogen D-Dimer ABG pH POC ABG pCO2 POC ABG pO2 ABG pO2 ABG HCO3 ABG O2 Saturation ABG Base Excess ABG Hemoglobin ABG Oxyhemoglobin Oxyhemoglobin Sodium Potassium Chloride Carbon Dioxide BUN Creatinine Glucose POC Glucose 214 H 214 H Lactic Acid Calcium Phosphorus Magnesium AST ALT Alkaline Phosphatase C-Reactive Protein Total Protein Albumin Triglycerides Ur Specific [place] Urine Creatinine Crossmatch 06/22/21 06/22/21 06/23/21 17:18 23:47 05:33 WBC RBC Hgb Hct MCV MCH RDW Plt Count Lymph % (Auto) [place] % (Auto) Lymph # (Auto) [place] # (Auto) Seg Neutrophils % Seg Neuts % (Manual) Lymphocytes % (Manual) Monocytes % (Manual) Seg Neutrophils # Seg Neutrophils # Man Lymphocytes # (Manual) Monocytes # (Manual) PT INR APTT Fibrinogen D-Dimer ABG pH POC ABG pCO2 POC ABG pO2 ABG pO2 ABG HCO3 ABG O2 Saturation ABG Base Excess ABG Hemoglobin ABG Oxyhemoglobin Oxyhemoglobin Sodium Potassium Chloride Carbon Dioxide BUN Creatinine Glucose POC Glucose 238 H 227 H 202 H Lactic Acid Calcium Phosphorus Magnesium AST ALT Alkaline Phosphatase C-Reactive Protein Total Protein Albumin Triglycerides Ur Specific [place] Urine Creatinine Crossmatch 06/23/21 06/23/21 06/23/21 10:04 10:04 11:06 WBC 20.3 H RBC 2.71 L Hgb 7.3 L Hct 21.8 L MCV MCH 27 L RDW 22.1 H Plt Count Lymph % (Auto) [place] % (Auto) Lymph # (Auto) [place] # (Auto) Seg Neutrophils % Seg Neuts % (Manual) Lymphocytes % (Manual) Monocytes % (Manual) Seg Neutrophils # Seg Neutrophils # Man Lymphocytes # (Manual) Monocytes # (Manual) PT INR APTT Fibrinogen D-Dimer ABG pH POC ABG pCO2 POC ABG pO2 ABG pO2 ABG HCO3 ABG O2 Saturation ABG Base Excess ABG Hemoglobin ABG Oxyhemoglobin Oxyhemoglobin Sodium 151 H Potassium 3.2 L Chloride 116.9 H Carbon Dioxide BUN 40 H Creatinine Glucose 208 H POC Glucose 204 H Lactic Acid Calcium 8.0 L Phosphorus 1.80 L D Magnesium AST ALT Alkaline Phosphatase C-Reactive Protein Total Protein Albumin Triglycerides Ur Specific [place] Urine Creatinine Crossmatch 06/23/21 06/23/21 06/24/21 16:11 23:47 04:00 WBC 16.9 H RBC 2.49 L Hgb 6.6 L Hct 20.3 L MCV MCH 26 L RDW 22.6 H Plt Count Lymph % (Auto) [place] % (Auto) Lymph # (Auto) [place] # (Auto) Seg Neutrophils % Seg Neuts % (Manual) Lymphocytes % (Manual) Monocytes % (Manual) Seg Neutrophils # Seg Neutrophils # Man Lymphocytes # (Manual) Monocytes # (Manual) PT INR APTT Fibrinogen D-Dimer ABG pH POC ABG pCO2 POC ABG pO2 ABG pO2 ABG HCO3 ABG O2 Saturation ABG Base Excess ABG Hemoglobin ABG Oxyhemoglobin Oxyhemoglobin Sodium Potassium Chloride Carbon Dioxide BUN Creatinine Glucose POC Glucose 228 H 189 H Lactic Acid Calcium Phosphorus Magnesium AST ALT Alkaline Phosphatase C-Reactive Protein Total Protein Albumin Triglycerides Ur Specific [place] Urine Creatinine Crossmatch 06/24/21 06/24/21 06/24/21 04:00 05:43 06:40 WBC RBC Hgb Hct MCV MCH RDW Plt Count Lymph % (Auto) [place] % (Auto) Lymph # (Auto) [place] # (Auto) Seg Neutrophils % Seg Neuts % (Manual) Lymphocytes % (Manual) Monocytes % (Manual) Seg Neutrophils # Seg Neutrophils # Man Lymphocytes # (Manual) Monocytes # (Manual) PT INR APTT Fibrinogen D-Dimer ABG pH POC ABG pCO2 POC ABG pO2 ABG pO2 ABG HCO3 ABG O2 Saturation ABG Base Excess ABG Hemoglobin ABG Oxyhemoglobin Oxyhemoglobin Sodium 148 H Potassium 3.2 L Chloride 115.6 H Carbon Dioxide BUN 35 H Creatinine Glucose 153 H POC Glucose 134 H Lactic Acid Calcium 7.9 L Phosphorus 2.40 L D Magnesium AST ALT Alkaline Phosphatase C-Reactive Protein Total Protein Albumin Triglycerides Ur Specific [place] Urine Creatinine Crossmatch See Detail
--- NOTE | 2021-06-24 17:32 | Progress Note ---
Assessment and Plan Cultures: 06/12/2021 blood cultures: no growth A/P: 76-year-old female with diabetes, hypertension, gout was admitted to the hospital on 06/11/2021 with swelling of the submandibular region, tongue and difficulty breathing, labs also revealed severe coagulopathy due to Coumadin. 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 Shock resolved. s/p tracheostomy and PEG tube placement 06/19/2021. #Acute respiratory failure: on the vent #Right-sided pneumothorax: s/p chest tube. #Diabetes mellitus, uncontrolled #Coagulopathy: Secondary to Coumadin. #Acute blood loss anemia Recs: -continue Zosyn -steroid taper per pulm/ICU -awaiting transfer to [place] for ENT joleneal Sinai Small MD [facility] ([facility]) O: [phone] F: [phone] Subjective Date of service: 06/24/21 Interval history: Afebrile, white count elevated 16.9. Blood culture no growth so far. Imaging personally reviewed: Chest x-ray: Improved right pneumothorax, increasing right basilar opacity. Objective - Exam Narrative Exam: Physical Exam: Constitutional: sedated, on the vent Head, Ears, Nose: Normocephalic, atraumatic. External ears, nose normal Eyes: Conjunctivae/corneas clear. No icterus. No ptosis. Oral: trach Cardiovascular: S1, S2 + Respiratory: AE reduced, right-sided chest tube. GI: Soft, bowel sounds +, PEG + Musculoskeletal: No pedal edema, no cyanosis. Skin: No rash or abscess Hem/Lymphatic: No palpable cervical or supraclavicular nodes. No lymphangitis Psych: no agitation Neurological: sedated, on the vent, exam limited - Constitutional Vitals: Vital Signs Temp Pulse Resp BP Pulse Ox 98.6 F 91 H 16 118/67 75 L 06/24/21 12:00 06/24/21 17:00 06/24/21 17:00 06/24/21 17:00 06/24/21 17:00 Temperature -Last 24 Hours Temperature 98.6 F Temperature 98.2 F Temperature 99.7 F Temperature 97.8 F Temperature 98.8 F Temperature 99.8 F - Labs CBC & Chem 7: 06/24/21 04:00 06/24/21 04:00 Labs: Abnormal lab results 06/11/21 06/23/21 06/24/21 Range/Units 19:20 23:47 04:00 WBC 16.9 H (4.5-11.0) K/mm3 RBC 2.49 L (3.65-5.03) M/mm3 Hgb 6.6 L (10.1-14.3) gm/dl Hct 20.3 L (30.3-42.9) % MCH 26 L (28-32) pg RDW 22.6 H (13.2-15.2) % Sodium (137-145) mmol/L Potassium (3.6-5.0) mmol/L Chloride (98-107) mmol/L BUN (7-17) mg/dL Glucose (65-100) mg/dL POC Glucose 189 H (70-105) mg/dL Calcium (8.4-10.2) mg/dL Phosphorus (2.5-4.5) mg/dL Crossmatch See Detail 06/24/21 06/24/21 06/24/21 Range/Units 04:00 05:43 06:40 WBC (4.5-11.0) K/mm3 RBC (3.65-5.03) M/mm3 Hgb (10.1-14.3) gm/dl Hct (30.3-42.9) % MCH (28-32) pg RDW (13.2-15.2) % Sodium 148 H (137-145) mmol/L Potassium 3.2 L (3.6-5.0) mmol/L Chloride 115.6 H (98-107) mmol/L BUN 35 H (7-17) mg/dL Glucose 153 H (65-100) mg/dL POC Glucose 134 H (70-105) mg/dL Calcium 7.9 L (8.4-10.2) mg/dL Phosphorus 2.40 L D (2.5-4.5) mg/dL Crossmatch See Detail 06/24/21 06/24/21 Range/Units 11:08 16:47 WBC (4.5-11.0) K/mm3 RBC (3.65-5.03) M/mm3 Hgb (10.1-14.3) gm/dl Hct (30.3-42.9) % MCH (28-32) pg RDW (13.2-15.2) % Sodium (137-145) mmol/L Potassium (3.6-5.0) mmol/L Chloride (98-107) mmol/L BUN (7-17) mg/dL Glucose (65-100) mg/dL POC Glucose 153 H 201 H (70-105) mg/dL Calcium (8.4-10.2) mg/dL Phosphorus (2.5-4.5) mg/dL Crossmatch
--- NOTE | 2021-06-24 18:35 | Progress Note ---
Assessment and Plan Assessment and plan: This is a 76-year-old female with HTN, Coumadin use, dental caries, PVD s/p stenting to right leg, DM, arthritis, depression, gout and ? Pulmonary hypertension admitted with Jeremiah's angina s/p emergent cric with bleeding, right sided pneumothorax, supratherapeutic INR, hypernatremia, hyperchloremia, severe metabolic acidosis, hyperglycemia and hypocalcemia Neuro: Sedated, h/o depression, arthritis -Sedated fentanyl gtt -RASS goal 0 to -1 -Avoid delirium -Reorientation as needed -Maintain sleep-wake cycle Cardiac: S/p cardiac arrest, h/o htn, PVD s/p stenting Right leg -06/14 cardiac arrest with ROSC -S/p vasopressor support with Levophed and Fabian-Synephrine -Blood pressure monitoring per protocol -BP monitoring per protocol -06/13 Echocardiogram EF 65-70% -hydral Respiratory: Acute hypoxic respiratory failure, right pneumothorax -CCM consulted, appreciate recommendations -S/p emergent cricothyroidectomy with surgery with 8.00 ETT -s/p trach 06/19 with surgery -A.m. vent settings: Assist-control, rate 18, tidal volume 450, PEEP 6, FiO2 30% -See RT notes for titration -A.m. ABG and CXR noted -Right chest tube replaced by surgery -CT to wall suction -Changed to larger bore on 06/13 -Postop CXR shows possible hydropneumothorax on right side -06/13 bronchoscopy showed possible blood clot in left lung which may be acting as mucous plug however it was left in place due to possible bleeding inside lung if removed. -CXR post cardiac arrest shows clearance of mucous plug -06/16 CT chest shows moderate right pneumothorax with collapse of right upper lobe, right thoracostomy tube terminates at the collapsed right upper lobe, bilateral bronchus opacities compatible with infectious/inflammatory etiology, bilateral small pleural effusion, extensive subcutaneous air, small fluid collection in the anterior mediastinum is nonspecific -VAP bundle -SPO2 monitoring GI: Protein calorie malnutrition -24 hours + 2115 mL -CT 140 mL -PPI -BR: senna, colace -s/p TPN -PEG placed : Acute kidney injury possibly secondary to vasomotor nephropathy, metabolic acidosis, hypokalemia, hypernatremia, hyperchloremia -Strict intake and output -Renally dose medications -Avoid nephrotoxic medications -Daily weights -Consider nephrology consult if worsens -S/p 7 L LR bolus -FeNa 0.067 -Replete potassium -fwf 300 q 4 ID: 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 dental caries -CT neck with contrast showed a significant right floor of mild swelling with extension into the submandibular and submental spaces, significant thickening and inflammation involving the right pharyngeal wall, with the parapharyngeal and retropharyngeal spaces at the level of the thyroid cartilage, epiglottis significantly swollen and so are the aryepiglottic folds resulting in significant airway narrowing at this level, no lymphadenopathy, symmetric submandibular and parathyroid glands, S few scattered caries but no periapical lucencies, nonspecific calcification along the right lateral oropharynx, no definite stone seen within the territory of the submandibular gland ducts, no suspicious rashes lesion -Infectious disease and general surgery consulted, appreciate recommendations -s/p cricothyroidectomy -Will follow surgery to direction and treatment of injury -Per surgery may have mucosal injury -Intra-Op findings include post pharyngeal swelling and bruising -Solu-Medrol 125 every 8 -tapering -Antibiotic therapy Zosyn -COVID-19 PCR negative -f/u blood culture -Monitor WBC and temperature curve -s/p 5L normal saline bolus in ED, 7 L LR bolus in ICU Heme: Coagulopathy, supratherapeutic INR, acute blood loss anemiq, possible component of hemorrhagic shock -Patient is on Coumadin at home -S/p 5 FFP, 7 PRBC, vitamin K x3 -Trend CBC -Presented with H/H of 10.3/34.6 and decreased to 6.7/22.4 -INR 8.18-> 4.55-> 2.1-> 1.23-> 1.16-> 1.31 -Monitor INR -Transfuse hemoglobin less than 7 -hgb 6.9 -will transfuse tiwh one unit prbc -serial h/h -Monitor for signs of bleeding -SCDs to BLE while in bed -Avoid chemical anticoagulation in setting of recent blood loss anemia Endo: Hyperglycemia, h/o DM, gout -S/p Lantus 25 units x 1 -Lantus subcu, titrate as needed -Avoid hypoglycemia -SSI -Accu-Cheks q. 6hr The high probability of a clinically significant, sudden or life threatening deterioration of the [multi] system(s) required my full and direct attention, intervention and personal management. The aggregate critical care time was [60] minutes. This time is in addition to time spent performing reported procedures but includes the following: [x] Data Review and interpretation [x] Patient assessment and monitoring of vital signs [x] Documentation [x] Medication orders and management Disposition Plan: icu Total Time Spent with Patient (Minutes): 60 History Interval history: This is a 76-year-old female with HTN, Coumadin use , dental caries, PVD s/p stenting right leg, DM, arthritis, depression, gout, and ? Pulmonary hypertension who presented to emergency department on 06/11 with complaints of pain to mandible area and throat and swelling. Work-up in the emergency department included CT scan of the head and neck which showed findings consistent with Jeremiah's angina and anesthesia was called for intubation. Anesthesia intubation attempts were unsuccessful and surgery was consulted for cricothyroidotomy which was unsuccessful in the emergency department and patient was taken to the OR for tracheostomy. Intubation procedure was complicated by development of pneumothorax and excessive bleeding. Patient given multiple FFP's and vitamin K several times who attempts to decrease INR. Lab work showed leukocytosis, supratherapeutic INR, hypernatremia, hyperchloremia, severe metabolic acidosis, hyperglycemia, hypocalcemia. Patient was admitted to the hospitalist service with consults to [facility] [place], general surgery, infectious disease. Hospital course to date: 06/12: Patient received additional 2 units FFP and 1 unit PRBC and vitamin K today. Overnight critical care placed a femoral CVL. Patient sedated on fentanyl, propofol and Versed. Currently on Fabian-Synephrine and Levophed for blood pressure maintenance. Remains amatory support. Infectious disease consulted. Started on sliding scale insulin and recultured. COVID-19 PCR pend ing. Surgery at bedside to place chest tube. 06/13: Patient was taken back to the OR today for exchange cricothyroid to possible tracheostomy. Patient returned with ETT. Chest tube was changed to l arger size in the OR. Patient was hypotensive, tachycardic, hypoxic in the OR and received hespan, albumin and an A-line. Upon arrival patient was increased to max dose Levophed for hypotension which has resolved. Titrating vasopressors as tolerated. Remains on sedation with 3 agents. Apparently patient was not ventilating her left lung Intra-Op. Noted to have subcu hematoma and trauma to postpharyngeal area. Questionable decrease cardiac wall motion noted in OR-> will order echocardiogram to further investigate. Patient received additional PRBC today. DIC panel resulted as normal. Patient BUN/creatinine did increase as well as noted to have lactic acidosis. May need IV bolus in addition to pressor use. Likely bronc with Pulmicort today as repeat CXR showed right possible pneumo hydrothorax 06/14: Antibiotics changed to Zosyn per ID, surgical packing removed from neck and makeshift Dubois drain placed by surgery and old chronic thyroidectomy site. CXR was completed and RN heard gurgling and blood was noted on dressing. ST elevation noted on bedside monitor and patient was hypoxic. FiO2 increased to 100%. However shortly after patient lost her pulse and ACLS was initiated. Patient received 3 rounds of epinephrine and ROSC was achieved. Stat portable CXR showed resolution of lower lobe collapse on the left and stable right-sided chest tube with hemothorax. CCM updated family. Patient H/H noted to be 7.2/23.2 and did RN to transfuse prepared PRBC which [facility] blood bank. Bedside echo completed. 06/15: Off sedation, intermittently follows commands, remains on the prednisone. Surgery will reassess airway on Thursday to see if any further support is requir ed. Urine studies indicate prerenal, given IV bolus and started on Clinimix today. 06/16: Patient restarted on fentanyl drip due to hypertension. Given more LR due to CR improvement post LR yesterday. Patient started on Lantus subcu after given one-time dose of Lantus. PICC placed today. Patient had a CT chest today which showed no mediasinusitis but extensive subcutaneous air. 06/17: General Surgery recommended transferring patient to a ENT specialized facility. Placed a call to [facility], spoke with the [employer] and wood [employer] labourer, Dr. Duckworth, who stated that a transfer is possible as long their ENT team accept the patient. Awaiting on a final response. Continue current supportive measures. Basal insulin adjusted for hyperglycemia. 06/18: JEREMIAS overnight. Hypertensive this am, PRN Hydralazine for SBP greater than 160. Remains hyperglycemic, patient is on IV steroids and TPN, basal insulin adjusted. Plan for possible transfer to [place] once an ICU bed is available. 06/19: Low SPO2 and hypotension overnight required Levophed for a short time. Overnight CXR noted with no significant changed. Patient is stable this am and off pressors. Plan for possible Trach and PEG today by General Surgery. 06/20: s/p Trach and PEG. Some bleeding overnight s/p X1 dose of Vitamin K. The bleeding resolved this am, H&H remains stable. Attempted a SAT this am, patient went into SVT, HR in the 160-170 which resolved once sedations were resumed. Plan is to continue to sedation for now, attempt to wean off propofol for a RASS goal of 0 to -2. D/C CCM plan is to wean off sedation as tolerated for PST for possible extubation. Okay to use PEGT per Gen. Surgery. Nutrition consulted for TF management, TF to start tonight once current TPN bag is completed. BG remains elevated, continue current SSI and basal for now, will start tapering IV steroids tomorrow. FWF added for hyponatremia. Wean off pressors as tolerated for MAP above 65. Possible transfer to [place] for ENT eval. 06/21: Overnight events and CXR noted. Worsen subcutaneous emphysema and Rt. Pneumo. CT remains in place and intact to cont. wall suction. Patient remains hemodynamically stable, still on low vent setting. will continue to monitor for now. Patient is also tolerating enteral nutrition via PEGT, TPN D/benjamín. H&H is also trending down, no s/s of any active bleeding. Will continue to trend H&H, transfuse if hgb is less than 7. FWF increased for hypernatremia. Still waiting on possible transfer to [place]. 06/22: JEREMIAS overnight. Subcutaneous emphysema is unchanged. CXR with mild improvement. Patient remains hemodynamically stable. Hydralazine added Q8hr for HTN. FWF increased for hypernatremia. Awaiting transfer to [place] for ENT eval. 06/23: Over 70cc from CT overnight, subcutaneous emphysema with mild improvement. Patient is also tolerating PST this am. Repeat CXR in the am. Patient is still hypertensive, will added norvasc for better control. Continue FWF for hypernatremia and electrolytes replacement as needed, repeat labs in the am. Darin in wbcs this am, patient remains afebrile and on IV Abx, most likely due to IV steroids continue to monitor. Continue to taper IV steroids. Hyperglycemia is also improving, continue current SSI and basal for now. 06/24: Patient is anemic today and transfused 1 unit PRBC, hypokalemia and hypophosphatemia repleted, will continue every 6 H/H for now to monitor for b leecruz, steroid taper continues, still awaiting transfer to [place], PT/OT consulted, CCM to talk to case management regarding LTAC transfer. Hospitalist Physical - Constitutional Vitals: Temp Pulse Resp BP Pulse Ox 98.6 F 81 18 133/63 100 06/24/21 12:00 06/24/21 18:00 06/24/21 18:00 06/24/21 18:00 06/24/21 18:00 General appearance: Present: no acute distress, obese, other - EENT Eyes: Present: PERRL, EOM intact ENT: poor dentition - Neck Neck: Present: normal ROM - Respiratory Respiratory effort: normal Respiratory: bilateral: diminished - Cardiovascular Rhythm: regular Heart Sounds: Present: S1 & S2. Absent: systolic murmur, diastolic murmur - Extremities Extremities: no ischemia, pulses intact, pulses symmetrical, No edema, normal temperature, normal color, Full ROM Peripheral Pulses: within normal limits - Abdominal General gastrointestinal: soft, non-tender, non-distended, normal bowel sounds - Integumentary Integumentary: Present: warm, dry - Psychiatric Psychiatric: cooperative - Neurologic Neurologic: CNII-XII intact, no focal deficits, moves all extremities - Allied Health Allied health notes reviewed: nursing, RT, social work HEART Score - HEART Score Troponin: Troponin T < 0.010 ng/mL (0.00-0.029) 06/11/21 23:21 Results - Labs CBC & Chem 7: 06/24/21 04:00 06/24/21 04:00 Labs: Laboratory Last Values WBC 16.9 K/mm3 (4.5-11.0) H 06/24/21 04:00 RBC 2.49 M/mm3 (3.65-5.03) L 06/24/21 04:00 Hgb 6.6 gm/dl (10.1-14.3) L 06/24/21 04:00 Hct 20.3 % (30.3-42.9) L 06/24/21 04:00 MCV 81 fl (79-97) 06/24/21 04:00 MCH 26 pg (28-32) L 06/24/21 04:00 MCHC 32 % (30-34) 06/24/21 04:00 RDW 22.6 % (13.2-15.2) H 06/24/21 04:00 Plt Count 257 K/mm3 (140-440) 06/24/21 04:00 Lymph % (Auto) 3.5 % (13.4-35.0) L 06/21/21 04:42 Kimble % (Auto) 11.7 % (0.0-7.3) H 06/21/21 04:42 Eos % (Auto) 0.0 % (0.0-4.3) 06/21/21 04:42 Baso % (Auto) 0.1 % (0.0-1.8) 06/21/21 04:42 Lymph # (Auto) 0.5 K/mm3 (1.2-5.4) L 06/21/21 04:42 Kimble # (Auto) 1.8 K/mm3 (0.0-0.8) H 06/21/21 04:42 Eos # (Auto) 0.0 K/mm3 (0.0-0.4) 06/21/21 04:42 Baso # (Auto) 0.0 K/mm3 (0.0-0.1) 06/21/21 04:42 Add Manual Diff Complete 06/13/21 Unknown Total Counted 100 06/13/21 Unknown Seg Neutrophils % 84.7 % (40.0-70.0) H 06/21/21 04:42 Seg Neuts % (Manual) 88.0 % (40.0-70.0) H 06/13/21 Unknown Band Neutrophils % 2.0 % 06/13/21 Unknown Lymphocytes % (Manual) 4.0 % (13.4-35.0) L 06/13/21 Unknown Reactive Lymphs % (Man) 0 % 06/13/21 Unknown Monocytes % (Manual) 6.0 % (0.0-7.3) 06/13/21 Unknown Eosinophils % (Manual) 0 % (0.0-4.3) 06/13/21 Unknown Basophils % (Manual) 0 % (0.0-1.8) 06/13/21 Unknown Metamyelocytes % 0 % 06/13/21 Unknown Myelocytes % 0 % 06/13/21 Unknown Promyelocytes % 0 % 06/13/21 Unknown Blast Cells % 0 % 06/13/21 Unknown Nucleated RBC % Not Reportable 06/13/21 Unknown Seg Neutrophils # 12.8 K/mm3 (1.8-7.7) H 06/21/21 04:42 Seg Neutrophils # Man 19.8 K/mm3 (1.8-7.7) H 06/13/21 Unknown Band Neutrophils # 0.5 K/mm3 06/13/21 Unknown Lymphocytes # (Manual) 0.9 K/mm3 (1.2-5.4) L 06/13/21 Unknown Abs React Lymphs (Man) 0.0 K/mm3 06/13/21 Unknown Monocytes # (Manual) 1.4 K/mm3 (0.0-0.8) H 06/13/21 Unknown Eosinophils # (Manual) 0.0 K/mm3 (0.0-0.4) 06/13/21 Unknown Basophils # (Manual) 0.0 K/mm3 (0.0-0.1) 06/13/21 Unknown Metamyelocytes # 0.0 K/mm3 06/13/21 Unknown Myelocytes # 0.0 K/mm3 06/13/21 Unknown Promyelocytes # 0.0 K/mm3 06/13/21 Unknown Blast Cells # 0.0 K/mm3 06/13/21 Unknown WBC Morphology Not Reportable 06/13/21 Unknown Hypersegmented Neuts Not Reportable 06/13/21 Unknown Hyposegmented Neuts Not Reportable 06/13/21 Unknown Hypogranular Neuts Not Reportable 06/13/21 Unknown Smudge Cells Not Reportable 06/13/21 Unknown Toxic Granulation 2+ 06/13/21 Unknown Toxic Vacuolation Not Reportable 06/13/21 Unknown Dohle Bodies Not Reportable 06/13/21 Unknown Pelger-Huet Anomaly Not Reportable 06/13/21 Unknown Dennis Rods Not Reportable 06/13/21 Unknown Platelet Estimate Consistent w auto 06/13/21 Unknown Clumped Platelets Not Reportable 06/13/21 Unknown Plt Clumps, EDTA Not Reportable 06/13/21 Unknown Large Platelets Not Reportable 06/13/21 Unknown Giant Platelets Not Reportable 06/13/21 Unknown Platelet Satelliting Not Reportable 06/13/21 Unknown Plt Morphology Comment Not Reportable 06/13/21 Unknown RBC Morphology Not Reportable 06/13/21 Unknown Dimorphic RBCs Not Reportable 06/13/21 Unknown Polychromasia Few 06/13/21 Unknown Hypochromasia 2+ 06/13/21 Unknown Poikilocytosis Not Reportable 06/13/21 Unknown Anisocytosis 1+ 06/13/21 Unknown Microcytosis Not Reportable 06/13/21 Unknown Macrocytosis Not Reportable 06/13/21 Unknown Spherocytes Not Reportable 06/13/21 Unknown Pappenheimer Bodies Not Reportable 06/13/21 Unknown Sickle Cells Not Reportable 06/13/21 Unknown Target Cells Not Reportable 06/13/21 Unknown Tear Drop Cells Not Reportable 06/13/21 Unknown Ovalocytes Not Reportable 06/13/21 Unknown Stomatocytes Few 06/12/21 01:45 Helmet Cells Not Reportable 06/13/21 Unknown Sal[place]-Privateer Bodies Not Reportable 06/13/21 Unknown [place] Rings Not Reportable 06/13/21 Unknown Nelsy Cells Not Reportable 06/13/21 Unknown Bite Cells Not Reportable 06/13/21 Unknown Crenated Cell Not Reportable 06/13/21 Unknown Elliptocytes Not Reportable 06/13/21 Unknown Acanthocytes (Spur) Not Reportable 06/13/21 Unknown Rouleaux Not Reportable 06/13/21 Unknown Hemoglobin C Crystals Not Reportable 06/13/21 Unknown Schistocytes Not Reportable 06/13/21 Unknown Malaria parasites Not Reportable 06/13/21 Unknown Edin Bodies Not Reportable 06/13/21 Unknown Hem Pathologist Commnt No 06/13/21 Unknown PT 18.3 Sec. (12.2-14.9) H 06/20/21 04:33 INR 1.37 (0.87-1.13) H 06/20/21 04:33 APTT 26.4 Sec. (24.2-36.6) 06/13/21 Unknown Fibrinogen 546 mg/dl (211-480) H 06/13/21 Unknown D-Dimer 1244.63 ng/mlDDU (0-234) H 06/13/21 Unknown ABG pH 7.426 pH Units (7.350-7.450) 06/21/21 04:20 POC ABG pCO2 25.6 mmHg (32.0-48.0) L 06/13/21 04:31 ABG pCO2 35.1 mm Hg 06/21/21 04:20 POC ABG pO2 138.8 mmHg (83-108) H 06/13/21 04:31 ABG pO2 98.5 mm Hg (80.0-90.0) H 06/21/21 04:20 POC ABG HCO3 21.4 06/13/21 04:31 ABG HCO3 22.6 mmol/L (20.0-26.0) 06/21/21 04:20 ABG O2 Saturation 97.7 % (95.0-99.0) 06/21/21 04:20 ABG O2 Content 9.9 (0.0-44) 06/21/21 04:20 POC ABG Base Excess -0.7 06/13/21 04:31 ABG Base Excess -1.6 mmol/L (-2.0-3.0) 06/21/21 04:20 ABG Hemoglobin 7.2 gm/dl (12.0-16.0) L 06/21/21 04:20 ABG Oxyhemoglobin 98.1 (94-98) H 06/13/21 04:31 ABG Carboxyhemoglobin 1.7 % (0.0-5.0) 06/21/21 04:20 ABG Methemoglobin 0.5 % (0.0-1.5) 06/21/21 04:20 Oxyhemoglobin 95.5 % (95.0-99.0) 06/21/21 04:20 Carboxyhemoglobin 0.8 (0.5-1.5) 06/13/21 04:31 FiO2 30 % 06/21/21 04:20 FiO2 % 40.0 06/13/21 04:31 Sodium 148 mmol/L (137-145) H 06/24/21 04:00 Potassium 3.2 mmol/L (3.6-5.0) L 06/24/21 04:00 Chloride 115.6 mmol/L (98-107) H 06/24/21 04:00 Carbon Dioxide 24 mmol/L (22-30) 06/24/21 04:00 Anion Gap 12 mmol/L 06/24/21 04:00 BUN 35 mg/dL (7-17) H 06/24/21 04:00 Creatinine 1.2 mg/dL (0.6-1.2) 06/24/21 04:00 Estimated GFR 53 ml/min 06/24/21 04:00 BUN/Creatinine Ratio 29 % 06/24/21 04:00 Glucose 153 mg/dL (65-100) H 06/24/21 04:00 POC Glucose 201 mg/dL (70-105) H 06/24/21 16:47 Lactic Acid 5.30 mmol/L (0.7-2.0) H* 06/13/21 15:45 Calcium 7.9 mg/dL (8.4-10.2) L 06/24/21 04:00 Phosphorus 2.40 mg/dL (2.5-4.5) L D 06/24/21 04:00 Magnesium 2.30 mg/dL (1.7-2.3) 06/24/21 04:00 Total Bilirubin 0.40 mg/dL (0.1-1.2) 06/15/21 03:56 AST 64 units/L (5-40) H 06/15/21 03:56 ALT 106 units/L (7-56) H 06/15/21 03:56 Alkaline Phosphatase 55 units/L (35-129) 06/15/21 03:56 Troponin T < 0.010 ng/mL (0.00-0.029) 06/11/21 23:21 C-Reactive Protein 3.30 mg/dL (0.00-1.30) H 06/16/21 04:32 Total Protein 5.1 g/dL (6.3-8.2) L 06/15/21 03:56 Albumin 2.9 g/dL (3.9-5) L 06/15/21 03:56 Albumin/Globulin Ratio 1.3 % 06/15/21 03:56 Triglycerides 254 mg/dL (2-149) H 06/21/21 04:42 Urine Color Yellow (Yellow) 06/12/21 17:00 Urine Turbidity Clear (Clear) 06/12/21 17:00 Urine pH 5.0 (5.0-7.0) 06/12/21 17:00 Ur Specific [place] 1.035 (1.003-1.030) H 06/12/21 17:00 Urine Protein 30 mg/dl mg/dL (Negative) 06/12/21 17:00 Urine Glucose (UA) 50 mg/dL (Negative) 06/12/21 17:00 Urine Ketones Tr mg/dL (Negative) 06/12/21 17:00 Urine Blood Neg (Negative) 06/12/21 17:00 Urine Nitrite Neg (Negative) 06/12/21 17:00 Urine Bilirubin Neg (Negative) 06/12/21 17:00 Urine Urobilinogen < 2.0 mg/dL (<2.0) 06/12/21 17:00 Ur Leukocyte Esterase Neg (Negative) 06/12/21 17:00 Urine WBC (Auto) < 1.0 /HPF (0.0-6.0) 06/12/21 17:00 Urine RBC (Auto) < 1.0 /HPF (0.0-6.0) 06/12/21 17:00 Urine Creatinine 81.1 mg/dL (0.1-20.0) H 06/15/21 10:40 Urine Sodium 42 mmol/L 06/15/21 10:40 Coronavirus (PCR) Negative (Negative) 06/12/21 09:50 Blood Type O POSITIVE 06/24/21 06:40 Antibody Screen Negative 06/24/21 06:40 Crossmatch See Detail 06/24/21 06:40 Lujan/IV: Voiding Method Indwelling Catheter Active Medications - Current Medications Current Medications: Generic Name Dose Route Start Last Admin Trade Name Freq PRN Reason Stop Dose Admin Amlodipine Besylate 5 mg 06/23/21 10:00 06/24/21 09:44 Amlodipine 5 Mg Tab PO 5 mg QDAY JOLENE Administration Lipase/Protease/Amylase 1 each 06/19/21 19:20 Lipase 10,500/Protease 25,000/Amylase 43,750 (Units) Dr Melgar FEEDTUBE PRN PRN For Clogged Feeding Tube Atorvastatin Calcium 20 mg 06/22/21 22:00 06/23/21 21:12 Atorvastatin 20 Mg Tab PO 20 mg QHS JOLENE Administration Docusate Sodium 100 mg 06/20/21 10:00 06/24/21 09:43 Docusate Sodium 100 Mg/10 Ml Oral Liqd PO 100 mg BID JOLENE Administration Famotidine 20 mg 06/24/21 22:00 Famotidine 20 Mg Tab FEEDTUBE BID JOLENE Fentanyl 50 mcg 06/20/21 12:00 Fentanyl 100 Mcg/2 Ml Inj IV Q2HR PRN For CPOT greater than 3 Hydralazine HCl 100 mg 06/22/21 19:00 06/24/21 13:17 Hydralazine 100 Mg Tab FEEDTUBE 100 mg Q8HR JOLENE Administration Hydromorphone HCl 0.5 mg 06/11/21 20:42 06/22/21 22:18 Hydromorphone 1 Mg/1 Ml Inj IV 0.5 mg Q3H PRN Administration Pain , Severe (7-10) NORepinephrine/NS 8 MG-250 ML 8 mg in 250 mls @ 3.75 mls/hr 06/12/21 02:00 06/20/21 12:13 Norepinephrine/Ns 8 Mg-250 Ml (Double Conc) IV 0 mcg/min TITRATE JOLENE 0 mls/hr Titration Protocol 2 MCG/MIN Piperacillin Sod/Tazobactam Sod 3.375 gm in 50 mls @ 100 mls/hr 06/21/21 18:00 06/24/21 17:47 Zosyn/Ns 3.375gm/50ml IV 100 mls/hr Q6HR JOLENE Administration Insulin Glargine 25 units 06/19/21 10:00 06/24/21 09:43 Insulin Glargine 100 Units/Ml SUB-Q 25 units BID JOLENE Administration Insulin Human Lispro 0 unit 06/12/21 12:00 06/24/21 17:47 Insulin Lispro 100 Unit/Ml SUB-Q 4 unit Q6HR JOLENE Administration Protocol Labetalol HCl 10 mg 06/21/21 18:00 06/23/21 00:22 Labetalol 20 Mg/4 Ml Inj IV 10 mg Q4HR PRN Administration Hypertension Methylprednisolone Sodium Succinate 40 mg 06/23/21 10:00 06/24/21 09:43 Methylprednisolone Sod Succinate 40 Mg/1 Ml Inj IV 40 mg Q12HR JOLENE Administration Metoclopramide HCl 10 mg 06/11/21 20:42 Metoclopramide 10 Mg/2 Ml Inj IV Q6H PRN Nausea And Vomiting Ondansetron HCl 4 mg 06/11/21 20:42 Ondansetron 4 Mg/2 Ml Inj IV Q3H PRN Nausea And Vomiting Potassium Chloride 40 meq 06/24/21 09:00 06/24/21 09:42 Potassium Chloride 20 Meq Packet FEEDTUBE 06/25/21 12:00 40 meq ONCE JOLENE Administration Senna 17.6 mg 06/20/21 10:00 06/24/21 09:43 Sennosides Oral Liqd 8.8 Mg/5 Ml Oral Liqd PO 17.6 mg Q12HR JOLENE Administration Simple Syrup 15 ml 06/19/21 19:20 Simple Syrup 15 Ml FEEDTUBE PRN PRN Hypoglycemia Simple Syrup 30 ml 06/19/21 19:20 Simple Syrup 15 Ml FEEDTUBE PRN PRN Hypoglycemia Sodium Bicarbonate 325 mg 06/19/21 19:20 Sodium Bicarbonate 325 Mg Tab FEEDTUBE PRN PRN For Clogged Feeding Tube Sodium Chloride 10 ml 06/11/21 22:00 06/24/21 09:43 Sodium Chloride 0.9% 10 Ml Flush Syringe IV 10 ml BID JOLENE Administration Sodium Chloride 10 ml 06/11/21 20:42 Sodium Chloride 0.9% 10 Ml Flush Syringe IV PRN PRN LINE FLUSH Nutrition/Malnutrition Assess - Dietary Evaluation Nutrition/Malnutrition Findings: Nutrition Notes Start: 06/16/21 12:10 Freq: Status: Active Protocol: Document 06/23/21 09:54 CANDIDO (Rec: 06/23/21 10:20 CANDIDO [id number]) Nutrition Notes Initial or Follow up Reassessment Current Diagnosis Diabetes,Sepsis,Hypertension, Respiratory Failure Other Pertinent Diagnosis Jeremiah's Angina, (R) Pneumothorax, Coagulopathy, s/ pCardiac Arrest, Gout... Current Diet TF-Vital AF 1.2 Quan @ 50 ml/hr (since D 06/21). Labs/Tests 06/22: Na 151, Cl 118.7, BUN 57, Glu 238, Ca 8.0, Mg 2.7. Pertinent Medications 06/23: Insulin, others nutritionally unremarkable. Height 5 ft 8 in Weight 109.316 kg [place] Body Weight (kg) 63.63 BMI 36.6 Weight change and time frame No body weight change reported . Weight Status Obese Subjective/Other Information RD consult for write/manage TF . TF continues as prescribed. Pt continues on Mechanical Ventilation, but is awake and responsive. Pt awaiting transfer to tertiary center. Pt continues with hypernatremia. Percent of energy/protein needs met: Prescribed Vital AF 1.2 Quan @ 50 ml/hr provides for energy/ protein needs (1,440 Kcal/90 g ) during LOS; 105% Kcal and 71 % AA. Burn Absent Trauma Absent GI Symptoms Other Difficulty In Swallowing,Chewing Food Allergy No Skin Integrity/Comment Surgical wounds. Current % PO Other Minimum of two criteria No #1 Nutrition Diagnosis Inadequate oral intake Diagnosis Progress(for reassessment Continues documentation) Is patient on ventilator? Yes Is Patient Ambulatory and/or Out of Bed No REE-([facility]-confined to bed) 2599.796 Calculation Used for Recommendations 65-70% energy needs Additional Notes Energy needs: 1280-1379kcal/ day Pro needs 2g/kg IBW: 127g/day Fluid needs 1ml/kcal Nutrition Intervention Nutrition Support: Continue Vital AF 1.2 Quan @ 50 ml/hr. Flush: 200 ml water Q 4 hr. When hypernatermia resolved, provide 80 ml water flush Q 4 hr. Kcal 1,440 Protein (gm) 90 Carbohydrates (gm) 133 Fat (gm) 65 Fluid (mL) 973 Fiber (gm) 6 % RDI: 105% Kcal; 71% AA. Goal #1 Provide at least 75% of energy /protein needs through Enteral Feeding during LOS. Goal #2 Maintain body weight within +/ -3% of admission body weight during LOS. Follow-Up By: 06/27/21 Additional Comments Continue monitoring Mechanical Ventilation, Na/Flush, TF tolerance and BM.
[2021-06-24] MEDS: FAMOTIDINE 20 MG TAB FEEDTUBE SCH (21:08)
[2021-06-24] MEDS ORDERED: fentaNYL DRIP Premix 2,000 MCG/100 ML BAG IV SCH (22:00)
[2021-06-25 04:20] LABS: Hematocrit 23.8 % (30.3-42.9); Mean Corpuscular HGB Conc 34 % (30-34); Mean Corpuscular Volume 82 fl (79-97); Platelet Count 241 K/mm3 (140-440)
[2021-06-25 04:21] LABS: Red Cell Distribution Width 22.8 % (13.2-15.2)
[2021-06-25 04:41] LABS: BUN/Creatinine Ratio 31; Blood Urea Nitrogen 28 mg/dL (7-17); Hemolysis Index 2
[2021-06-25] MEDS: INSULIN LISPRO 100 UNIT/ML SUB-Q SCH ×3 (06:25→18:04)
--- NOTE | 2021-06-25 07:18 | Progress Note ---
Assessment and Plan Patient on the ventilator through tracheostomy. She has a #[address] She is much more awake today and on previous days. Vital signs appear stable. Hemoglobin was notably low yesterday. After 1 unit of blood is hemoglobin of 8 hematocrit 23. Nursing is not visualizing any external signs of bleeding. Chest x-rays are showing improvement of right-sided pneumothorax. The patient is weaned off of the ventilator the chest tube will be addressed and and removed. Transfer to [place] for ENT evaluation is now into the second week of waiting. Patient may well be cared for during this admission discharged and then evaluated as an outpatient. Subjective Date of service: 06/25/21 Narrative: Patient on the ventilator through tracheostomy. She has a #[address] She is much more awake today and on previous days. Vital signs appear stable. Hemoglobin was notably low yesterday. After 1 unit of blood is hemoglobin of 8 hematocrit 23. Nursing is not visualizing any external signs of bleeding. Chest x-rays are showing improvement of right-sided pneumothorax. The patient is weaned off of the ventilator the chest tube will be addressed and and removed. Transfer to [place] for ENT evaluation is now into the second week of waiting. Patient may well be cared for during this admission discharged and then evaluated as an outpatient. Objective Vital Signs - 12hr 06/24/21 06/24/21 06/24/21 19:30 19:59 20:00 Temperature 99.2 F Pulse Rate 87 85 81 Pulse Rate [ 82 From Monitor] Respiratory 17 16 Rate Blood Pressure 147/71 160/76 160/76 O2 Sat by Pulse 100 100 100 Oximetry O2 Sat by Pulse Oximetry [ Assessment] 06/24/21 06/24/21 06/24/21 20:04 20:30 21:00 Temperature Pulse Rate 80 77 Pulse Rate [ From Monitor] Respiratory 18 18 Rate Blood Pressure 153/74 138/63 O2 Sat by Pulse 100 100 Oximetry O2 Sat by Pulse 100 Oximetry [ Assessment] 06/24/21 06/24/21 06/24/21 21:30 22:01 22:30 Temperature Pulse Rate 75 85 80 Pulse Rate [ From Monitor] Respiratory 18 19 18 Rate Blood Pressure 136/61 156/66 135/61 O2 Sat by Pulse 100 100 100 Oximetry O2 Sat by Pulse Oximetry [ Assessment] 06/24/21 06/24/21 06/24/21 23:00 23:01 23:30 Temperature Pulse Rate 82 79 81 Pulse Rate [ From Monitor] Respiratory 18 18 18 Rate Blood Pressure 142/66 142/66 132/62 O2 Sat by Pulse 100 100 100 Oximetry O2 Sat by Pulse Oximetry [ Assessment] 06/25/21 06/25/21 06/25/21 00:00 00:13 00:30 Temperature 99.3 F Pulse Rate 83 81 79 Pulse Rate [ 77 From Monitor] Respiratory 13 18 Rate Blood Pressure 158/76 150/74 143/71 O2 Sat by Pulse 100 100 100 Oximetry O2 Sat by Pulse Oximetry [ Assessment] 06/25/21 06/25/21 06/25/21 01:00 01:30 02:00 Temperature Pulse Rate 74 81 71 Pulse Rate [ From Monitor] Respiratory 18 18 18 Rate Blood Pressure 151/73 139/88 149/71 O2 Sat by Pulse 100 100 100 Oximetry O2 Sat by Pulse Oximetry [ Assessment] 06/25/21 06/25/21 06/25/21 02:30 03:00 03:30 Temperature Pulse Rate 79 86 78 Pulse Rate [ From Monitor] Respiratory 18 19 18 Rate Blood Pressure 152/68 161/83 157/74 O2 Sat by Pulse 100 99 100 Oximetry O2 Sat by Pulse Oximetry [ Assessment] 06/25/21 06/25/21 06/25/21 04:00 04:22 04:29 Temperature 99.2 F Pulse Rate 74 76 Pulse Rate [ 77 From Monitor] Respiratory 15 Rate Blood Pressure 163/77 157/75 O2 Sat by Pulse 100 100 Oximetry O2 Sat by Pulse 100 Oximetry [ Assessment] 06/25/21 06/25/21 06/25/21 04:30 05:00 05:30 Temperature Pulse Rate 82 82 80 Pulse Rate [ From Monitor] Respiratory 17 18 15 Rate Blood Pressure 147/75 132/65 138/72 O2 Sat by Pulse 100 100 100 Oximetry O2 Sat by Pulse Oximetry [ Assessment] 06/25/21 06:00 Temperature Pulse Rate 85 Pulse Rate [ From Monitor] Respiratory 15 Rate Blood Pressure 127/92 O2 Sat by Pulse 100 Oximetry O2 Sat by Pulse Oximetry [ Assessment] - Labs 06/25/21 Unknown 06/25/21 Unknown Diabetes panel 06/25/21 Range/Units Unknown Sodium 149 H (137-145) mmol/L Potassium 3.6 (3.6-5.0) mmol/L Chloride 115.6 H (98-107) mmol/L Carbon Dioxide 23 (22-30) mmol/L BUN 28 H (7-17) mg/dL Creatinine 0.9 (0.6-1.2) mg/dL Glucose 157 H (65-100) mg/dL Calcium 8.0 L (8.4-10.2) mg/dL Calcium panel 06/25/21 Range/Units Unknown Calcium 8.0 L (8.4-10.2) mg/dL Phosphorus 2.70 (2.5-4.5) mg/dL Pituitary panel 06/25/21 Range/Units Unknown Sodium 149 H (137-145) mmol/L Potassium 3.6 (3.6-5.0) mmol/L Chloride 115.6 H (98-107) mmol/L Carbon Dioxide 23 (22-30) mmol/L BUN 28 H (7-17) mg/dL Creatinine 0.9 (0.6-1.2) mg/dL Glucose 157 H (65-100) mg/dL Calcium 8.0 L (8.4-10.2) mg/dL Adrenal panel 06/25/21 Range/Units Unknown Sodium 149 H (137-145) mmol/L Potassium 3.6 (3.6-5.0) mmol/L Chloride 115.6 H (98-107) mmol/L Carbon Dioxide 23 (22-30) mmol/L BUN 28 H (7-17) mg/dL Creatinine 0.9 (0.6-1.2) mg/dL Glucose 157 H (65-100) mg/dL Calcium 8.0 L (8.4-10.2) mg/dL
--- NOTE | 2021-06-25 09:06 | XRay Report ---
CHEST - 1 VIEW INDICATION: f/u resp distress COMPARISON: Yesterday FINDINGS: SUPPORT DEVICES: Stable support device positioning. HEART: Stable cardiomediastinal silhouette. LUNGS/PLEURA: Extensive subcutaneous emphysema again noted with patchy bibasilar airspace disease, w orsened in the left lung base. No appreciable pneumothorax identified. ADDITIONAL FINDINGS: None. IMPRESSION: Slightly worsened exam as above. Signer Name: Home Hendricks MD Signed: 06/25/2021 9:01 AM Workstation Name: [id number]
[2021-06-25] MEDS: INSULIN GLARGINE 100 UNITS/ML SUB-Q SCH ×2 (09:12→22:00)
[2021-06-25] MEDS: methylPREDNISolone Sod Succinate 40 MG/1 ML INJ IV SCH ×2 (09:12→22:00)
[2021-06-25] MEDS: fentaNYL 100 MCG/2 ML INJ IV PRN ×2 (09:12→18:04)
[2021-06-25] MEDS: amLODIPine 5 MG TAB PO SCH (09:13)
[2021-06-25] MEDS: SENNOSIDES ORAL LIQD 8.8 MG/5 ML ORAL LIQD PO SCH ×2 (09:13→21:44)
[2021-06-25] MEDS: DOCUSATE SODIUM 100 MG/10 ML ORAL LIQD PO SCH ×2 (09:13→21:44)
[2021-06-25] MEDS: FAMOTIDINE 20 MG TAB FEEDTUBE SCH ×2 (09:13→22:00)
[2021-06-25 09:48] LABS: Hemoglobin 8.3 gm/dl (10.1-14.3)
--- NOTE | 2021-06-25 10:52 | Progress Note ---
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 06/25/21: Continue PSV as tolerated. Hopeful T-piece in the next 24-48 hours. Will drop steroids down further on . Can switch to daily and even change to oral. PT/OT consult, and follow up recs. May need LTACH vs rehab vs both. Continue to follow. 06/24/21: Daily PSV trials. Maybe ready for T-piece sson. Continue to wean steroids to off. IMS changed to 40q12 which is fine. Continue chest tube until off vent. Still on list for [facility] but will discuss with CM about checking into LTACH as patient will need rehab. PT/OT consult. 06/21/21: Continue current level of sedation. Chest tube does not have air leak but there is clear evidence of a PTX on right. Stripped tube at bedside and will repeat CXR in the morning. Hold on weaning sedation for now and hold on PSV trials. May need second chest tube vs vats if PTX worsens or does not resolve. Patient still on list for [facility], hopeful they will have a bed soon. Drop steroids to 40q8 starting Thursday. Monitor renal function, likely will improve. Needs more free water. Prognosis still remains guarded. 06/20/21: Restart some sedation. At least pain and maybe diprovan. Would like to wake patient up at some point and attempt some PSV trials. Labs are off this am. Large bump in white count but no fever, also no diff drawn. Could be error vs steroid related but this is in just 24 hours. Will repeat tomorrow. If spikes a temp neves culture as well. Small bump in Cr but still in normal range. Will watch. Now that peg in place, tube feeds and free water flushes. Still on list for [facility]. Patient has been steroids greater than 7 days so will have to wean. Can drop to 60q8 starting tomorrow. Prognosis still remains guarded. 06/19/21: surgery to attempt trach and peg today. Still will ask to keep on transfer list for [facility] as her other issues still need to be addressed. If able to place peg, can stop clinimix, give free water and start tube feeds. Prognosis remains guarded. pH better with drop in tidal volume. 06/18/21: [facility] has agreed to accept but no ICU beds available at this time. Spoke with Dr. Vasquez yesterday and Dr. Patricia spoke with ENT there. Spoke with RT this am and patient did have a leak when cuff let down and her tidal volumes dropped to below 100. Patient remains on abx and steriods. Will consider lightening sedation tomorrow and seeing how patient does if cuff leak persists. Dropped tidal volumes to 450. Continue PPN for now. 06/17/21: spoke with surgery and they feel transfer is reasonable. I have reached out to [facility] and [facility] has spoken with someone from [facility]. Await to hear back from them. Continue supportive measures and adequate sedation for pain control. No PSV trials as of yet. Blood sugar control, increase lantus. Most likely secondary to steroids. Continue abx therapy. Guarded prognosis. 06/16/21: Renal function improved with fluids. IMS to give more fluids (LR) today which I agree with. FeNa is =0.7. Should be fluid responsive. Continue clinimix. Needs long acting insulin. Agree with lantus. Asked nursing to increase sedation now that we know that patient's mental status is stable. Picc today. Air leak test vs Neck CT on tomorrow. 06/15/21: Hopeful with worsening renal function ( likely from code on yesterday) that sedatives are just lingering from that. Still making good urine but output has fallen off. Will send urine sodium and urine cr to check Fena. Most likely this is prerenal. ordered renal ultrasound as well. Continue abx and steroids. Will start clinimix today. This should help with the free water piece. Will give another liter bolus of LR right now. Keep sedation off for now. Guarded prognosis. 06/14/21: Will discuss with surgery future plans. They have ordered steroids to help with inflammation and abx continue. All others appears stable and no acute evidence of bleeding at this time. Follow up surgery recs if any new ones. Guarded prognosis. 06/13/21: Patient to back to OR today. BLood transfusion. Will send DIC panel and may need to given cryo if over 6 units of PRBC's given. Patient will likely need trach and peg as we need to address nutrition. Chest tube placed, large bore now. Patient now with right sided effusion. Hemothorax???. Will continue to monitor output. Needs picc line as femoral should come out soon. Continue pressors. Continue sedation for pain control and comfort. Guarded prognosis. Surgery comfortable with neck and current situation so they have not request transfer. 1. Placed right femoral central line. pressors can run through this. 2. Repeat chemistry stat given bicarb of 8 and blood sugar of greater than 600. Ordering FSBS now. Earlier bicarb was 25. If accurate will need bicarb drip and vasopressin but not sure as pH on blood gas was normal done around the same time. 3. Coagulopathy is improving. INR down to 4.55 and PTT and pT improving. Will continue to give FFP. Ordered more vitamin K. H/H is stable but patient is oozing from neck and mouth. 4. Vasopressor for blood pressure. Need to keep map 65 and greater 5. Lujan is needed for accurate I/O 6. Surgery called by IMS about current CT situation. They state they will reassess in the am. I have reviewed the images myself. If I can position the patient safely without compromising the airway after adequate sedation, may consider placing chest tube now as INR is better and FFP is hanging. Patient is morbidly obese so shits could move the ET tube so if not safe, will wait until surgery comes in the morning. 7. Would not attempt to pass OG or NG tube given current situation in neck 8. Will discuss with surgery tomorrow but I feel this patient should be transferred to a tertiary care facility with ENT as we do not have that service here. CCT 31 minutes. Subjective Date of service: 06/25/21 Interval history: no acute events. Awake and alert. Following commands. Currently on PSV and tolerating. Objective Vital Signs - 12hr 06/24/21 06/24/21 06/24/21 23:00 23:01 23:30 Temperature Pulse Rate 82 79 81 Pulse Rate [ From Monitor] Respiratory 18 18 18 Rate Blood Pressure 142/66 142/66 132/62 O2 Sat by Pulse 100 100 100 Oximetry O2 Sat by Pulse Oximetry [ Assessment] 06/25/21 06/25/21 06/25/21 00:00 00:13 00:30 Temperature 99.3 F Pulse Rate 83 81 79 Pulse Rate [ 77 From Monitor] Respiratory 13 18 Rate Blood Pressure 158/76 150/74 143/71 O2 Sat by Pulse 100 100 100 Oximetry O2 Sat by Pulse Oximetry [ Assessment] 06/25/21 06/25/21 06/25/21 01:00 01:30 02:00 Temperature Pulse Rate 74 81 71 Pulse Rate [ From Monitor] Respiratory 18 18 18 Rate Blood Pressure 151/73 139/88 149/71 O2 Sat by Pulse 100 100 100 Oximetry O2 Sat by Pulse Oximetry [ Assessment] 06/25/21 06/25/21 06/25/21 02:30 03:00 03:30 Temperature Pulse Rate 79 86 78 Pulse Rate [ From Monitor] Respiratory 18 19 18 Rate Blood Pressure 152/68 161/83 157/74 O2 Sat by Pulse 100 99 100 Oximetry O2 Sat by Pulse Oximetry [ Assessment] 06/25/21 06/25/21 06/25/21 04:00 04:22 04:29 Temperature 99.2 F Pulse Rate 74 76 Pulse Rate [ 77 From Monitor] Respiratory 15 Rate Blood Pressure 163/77 157/75 O2 Sat by Pulse 100 100 Oximetry O2 Sat by Pulse 100 Oximetry [ Assessment] 06/25/21 06/25/21 06/25/21 04:30 05:00 05:30 Temperature Pulse Rate 82 82 80 Pulse Rate [ From Monitor] Respiratory 17 18 15 Rate Blood Pressure 147/75 132/65 138/72 O2 Sat by Pulse 100 100 100 Oximetry O2 Sat by Pulse Oximetry [ Assessment] 06/25/21 06/25/21 06/25/21 06:00 06:30 07:00 Temperature Pulse Rate 85 86 100 H Pulse Rate [ From Monitor] Respiratory 15 18 15 Rate Blood Pressure 127/92 136/67 131/66 O2 Sat by Pulse 100 99 76 L Oximetry O2 Sat by Pulse Oximetry [ Assessment] 06/25/21 06/25/21 06/25/21 07:30 07:41 07:55 Temperature Pulse Rate 83 82 90 Pulse Rate [ From Monitor] Respiratory 14 23 Rate Blood Pressure 142/79 125/66 O2 Sat by Pulse 100 100 Oximetry O2 Sat by Pulse Oximetry [ Assessment] 06/25/21 06/25/21 06/25/21 08:00 08:01 08:30 Temperature 99.3 F Pulse Rate 90 84 Pulse Rate [ 82 From Monitor] Respiratory 16 9 L 21 Rate Blood Pressure 136/70 151/74 O2 Sat by Pulse 100 100 100 Oximetry O2 Sat by Pulse Oximetry [ Assessment] 06/25/21 06/25/21 06/25/21 09:00 09:13 09:31 Temperature Pulse Rate 93 H 92 H 95 H Pulse Rate [ From Monitor] Respiratory 14 26 H Rate Blood Pressure 160/80 160/80 163/70 O2 Sat by Pulse 100 100 Oximetry O2 Sat by Pulse Oximetry [ Assessment] 06/25/21 10:00 Temperature Pulse Rate 86 Pulse Rate [ From Monitor] Respiratory 12 Rate Blood Pressure 144/67 O2 Sat by Pulse Oximetry O2 Sat by Pulse Oximetry [ Assessment] Constitutional: alert, other (on vent trach in place) Eyes: non-icteric ENT: oropharynx moist Neck: other (trach in place) Ascultation: Bilateral: clear Percussion: Bilateral: not dull Cardiovascular: regular rate and rhythm Gastrointestinal: normoactive bowel sounds, soft Integumentary: other (subq emphysema) Extremities: no edema, other (subq emphysema) Neurologic: normal mental status CBC and BMP: 06/25/21 Unknown 06/25/21 Unknown ABG, PT/INR, D-dimer: ABG ABG pH 7.426 pH Units (7.350-7.450) 06/21/21 04:20 POC ABG pCO2 25.6 mmHg (32.0-48.0) L 06/13/21 04:31 ABG pCO2 35.1 mm Hg 06/21/21 04:20 POC ABG pO2 138.8 mmHg (83-108) H 06/13/21 04:31 ABG pO2 98.5 mm Hg (80.0-90.0) H 06/21/21 04:20 POC ABG HCO3 21.4 06/13/21 04:31 ABG O2 Saturation 97.7 % (95.0-99.0) 06/21/21 04:20 PT/INR, D-dimer PT 18.3 Sec. (12.2-14.9) H 06/20/21 04:33 INR 1.37 (0.87-1.13) H 06/20/21 04:33 D-Dimer 1244.63 ng/mlDDU (0-234) H 06/13/21 Unknown Abnormal lab findings: Abnormal Labs 06/11/21 06/11/21 06/11/21 15:23 15:23 19:20 WBC 12.0 H RBC Hgb Hct MCV 72 L MCH 21 L RDW 17.5 H Plt Count Lymph % (Auto) 12.9 L Evangeline % (Auto) 8.6 H Lymph # (Auto) Evangeline # (Auto) 1.0 H Seg Neutrophils % 77.4 H Seg Neuts % (Manual) Lymphocytes % (Manual) Monocytes % (Manual) Seg Neutrophils # 9.3 H Seg Neutrophils # Man Lymphocytes # (Manual) Monocytes # (Manual) PT INR APTT Fibrinogen D-Dimer ABG pH POC ABG pCO2 POC ABG pO2 ABG pO2 ABG HCO3 ABG O2 Saturation ABG Base Excess ABG Hemoglobin ABG Oxyhemoglobin Oxyhemoglobin Sodium Potassium Chloride Carbon Dioxide BUN Creatinine Glucose 144 H POC Glucose Lactic Acid Calcium Phosphorus Magnesium AST ALT Alkaline Phosphatase C-Reactive Protein Total Protein Albumin Triglycerides Ur Specific [place] Urine Creatinine Crossmatch See Detail 06/11/21 06/11/21 06/11/21 19:29 19:29 23:21 WBC 15.8 H RBC Hgb 9.4 L Hct MCV 72 L MCH 22 L RDW 17.4 H Plt Count Lymph % (Auto) 9.2 L Evangeline % (Auto) Lymph # (Auto) Evangeline # (Auto) Seg Neutrophils % 89.0 H Seg Neuts % (Manual) Lymphocytes % (Manual) Monocytes % (Manual) Seg Neutrophils # 14.0 H Seg Neutrophils # Man Lymphocytes # (Manual) Monocytes # (Manual) PT 72.9 H INR 8.18 H* APTT 71.7 H* Fibrinogen D-Dimer ABG pH POC ABG pCO2 POC ABG pO2 ABG pO2 ABG HCO3 ABG O2 Saturation ABG Base Excess ABG Hemoglobin ABG Oxyhemoglobin Oxyhemoglobin Sodium 149 H D Potassium Chloride 124.3 H Carbon Dioxide 8 L* D BUN Creatinine 0.3 L Glucose 628 H* POC Glucose Lactic Acid Calcium 2.4 L* D Phosphorus Magnesium AST ALT < 5 L Alkaline Phosphatase 19 L C-Reactive Protein Total Protein 1.6 L D Albumin 0.8 L Triglycerides Ur Specific [place] Urine Creatinine Crossmatch 06/11/21 06/11/21 06/11/21 23:21 23:22 23:42 WBC RBC Hgb Hct MCV MCH 27 L RDW 22.2 H Plt Count 131 L Lymph % (Auto) Evangeline % (Auto) Lymph # (Auto) Evangeline # (Auto) Seg Neutrophils % Seg Neuts % (Manual) Lymphocytes % (Manual) Monocytes % (Manual) Seg Neutrophils # Seg Neutrophils # Man Lymphocytes # (Manual) Monocytes # (Manual) PT 46.3 H INR 4.55 H APTT 54.8 H Fibrinogen D-Dimer ABG pH POC ABG pCO2 POC ABG pO2 325.9 H ABG pO2 ABG HCO3 ABG O2 Saturation ABG Base Excess ABG Hemoglobin 8.0 L ABG Oxyhemoglobin 99.0 H Oxyhemoglobin Sodium Potassium Chloride Carbon Dioxide BUN Creatinine Glucose POC Glucose Lactic Acid Calcium Phosphorus Magnesium AST ALT Alkaline Phosphatase C-Reactive Protein Total Protein Albumin Triglycerides Ur Specific [place] Urine Creatinine Crossmatch 06/12/21 06/12/21 06/12/21 01:45 01:45 01:45 WBC 21.6 H RBC 3.04 L Hgb 6.7 L D Hct 22.4 L D MCV 74 L MCH 22 L RDW 18.9 H Plt Count Lymph % (Auto) Evangeline % (Auto) Lymph # (Auto) Evangeline # (Auto) Seg Neutrophils % Seg Neuts % (Manual) 76.0 H Lymphocytes % (Manual) 2.0 L Monocytes % (Manual) 8.0 H Seg Neutrophils # Seg Neutrophils # Man 16.4 H Lymphocytes # (Manual) 0.4 L Monocytes # (Manual) 1.7 H PT 25.4 H INR 2.10 H APTT Fibrinogen D-Dimer ABG pH POC ABG pCO2 POC ABG pO2 ABG pO2 ABG HCO3 ABG O2 Saturation ABG Base Excess ABG Hemoglobin ABG Oxyhemoglobin Oxyhemoglobin Sodium Potassium 5.6 H D Chloride Carbon Dioxide 20 L D BUN Creatinine Glucose 368 H POC Glucose Lactic Acid Calcium 7.1 L D Phosphorus Magnesium AST ALT Alkaline Phosphatase C-Reactive Protein Total Protein 5.3 L D Albumin 3.1 L Triglycerides Ur Specific [place] Urine Creatinine Crossmatch 06/12/21 06/12/21 06/12/21 02:05 04:41 11:05 WBC 14.6 H RBC 3.52 L Hgb 8.5 L Hct 27.7 L MCV MCH 24 L RDW 20.9 H Plt Count Lymph % (Auto) Evangeline % (Auto) Lymph # (Auto) Evangeline # (Auto) Seg Neutrophils % Seg Neuts % (Manual) Lymphocytes % (Manual) Monocytes % (Manual) Seg Neutrophils # Seg Neutrophils # Man Lymphocytes # (Manual) Monocytes # (Manual) PT INR APTT Fibrinogen D-Dimer ABG pH POC ABG pCO2 POC ABG pO2 224.6 H ABG pO2 ABG HCO3 ABG O2 Saturation ABG Base Excess ABG Hemoglobin 7.3 L ABG Oxyhemoglobin 98.7 H Oxyhemoglobin Sodium Potassium Chloride Carbon Dioxide BUN Creatinine Glucose POC Glucose 308 H Lactic Acid Calcium Phosphorus Magnesium AST ALT Alkaline Phosphatase C-Reactive Protein Total Protein Albumin Triglycerides Ur Specific [place] Urine Creatinine Crossmatch 06/12/21 06/12/21 06/12/21 11:05 11:05 12:18 WBC RBC Hgb Hct MCV MCH RDW Plt Count Lymph % (Auto) Ev[place]eline % (Auto) Lymph # (Auto) Evangeline # (Auto) Seg Neutrophils % Seg Neuts % (Manual) Lymphocytes % (Manual) Monocytes % (Manual) Seg Neutrophils # Seg Neutrophils # Man Lymphocytes # (Manual) Monocytes # (Manual) PT 16.8 H INR 1.23 H APTT Fibrinogen D-Dimer ABG pH POC ABG pCO2 POC ABG pO2 ABG pO2 ABG HCO3 ABG O2 Saturation ABG Base Excess ABG Hemoglobin ABG Oxyhemoglobin Oxyhemoglobin Sodium Potassium Chloride Carbon Dioxide BUN 24 H Creatinine Glucose 324 H POC Glucose 281 H Lactic Acid Calcium 7.5 L Phosphorus Magnesium AST 70 H ALT 57 H Alkaline Phosphatase C-Reactive Protein Total Protein 6.0 L Albumin 3.6 L Triglycerides Ur Specific [place] Urine Creatinine Crossmatch 06/12/21 06/12/21 06/12/21 17:00 17:00 17:00 WBC RBC Hgb 7.5 L Hct 24.0 L MCV MCH RDW Plt Count Lymph % (Auto) Evangeline % (Auto) Lymph # (Auto) Evangeline # (Auto) Seg Neutrophils % Seg Neuts % (Manual) Lymphocytes % (Manual) Monocytes % (Manual) Seg Neutrophils # Seg Neutrophils # Man Lymphocytes # (Manual) Monocytes # (Manual) PT 16.0 H INR 1.16 H APTT Fibrinogen D-Dimer ABG pH POC ABG pCO2 POC ABG pO2 ABG pO2 ABG HCO3 ABG O2 Saturation ABG Base Excess ABG Hemoglobin ABG Oxyhemoglobin Oxyhemoglobin Sodium Potassium Chloride Carbon Dioxide BUN Creatinine Glucose POC Glucose Lactic Acid Calcium Phosphorus Magnesium AST ALT Alkaline Phosphatase C-Reactive Protein Total Protein Albumin Triglycerides Ur Specific [place] 1.035 H Urine Creatinine Crossmatch 06/12/21 06/12/21 06/12/21 18:06 23:00 23:05 WBC RBC Hgb 7.6 L Hct 23.5 L MCV MCH RDW Plt Count Lymph % (Auto) Evangeline % (Auto) Lymph # (Auto) Evangeline # (Auto) Seg Neutrophils % Seg Neuts % (Manual) Lymphocytes % (Manual) Monocytes % (Manual) Seg Neutrophils # Seg Neutrophils # Man Lymphocytes # (Manual) Monocytes # (Manual) PT INR APTT Fibrinogen D-Dimer ABG pH POC ABG pCO2 POC ABG pO2 ABG pO2 ABG HCO3 ABG O2 Saturation ABG Base Excess ABG Hemoglobin ABG Oxyhemoglobin Oxyhemoglobin Sodium Potassium Chloride Carbon Dioxide BUN Creatinine Glucose POC Glucose 257 H 300 H Lactic Acid Calcium Phosphorus Magnesium AST ALT Alkaline Phosphatase C-Reactive Protein Total Protein Albumin Triglycerides Ur Specific [place] Urine Creatinine Crossmatch 06/13/21 06/13/21 06/13/21 04:31 05:19 07:30 WBC RBC Hgb 6.8 L Hct 21.7 L MCV MCH RDW Plt Count Lymph % (Auto) Evangeline % (Auto) Lymph # (Auto) Evangeline # (Auto) Seg Neutrophils % Seg Neuts % (Manual) Lymphocytes % (Manual) Monocytes % (Manual) Seg Neutrophils # Seg Neutrophils # Man Lymphocytes # (Manual) Monocytes # (Manual) PT INR APTT Fibrinogen D-Dimer ABG pH 7.541 H POC ABG pCO2 25.6 L POC ABG pO2 138.8 H ABG pO2 ABG HCO3 ABG O2 Saturation ABG Base Excess ABG Hemoglobin 7.3 L ABG Oxyhemoglobin 98.1 H Oxyhemoglobin Sodium Potassium Chloride Carbon Dioxide BUN Creatinine Glucose POC Glucose 286 H Lactic Acid Calcium Phosphorus Magnesium AST ALT Alkaline Phosphatase C-Reactive Protein Total Protein Albumin Triglycerides Ur Specific [place] Urine Creatinine Crossmatch 06/13/21 06/13/21 06/13/21 07:30 12:04 14:50 WBC RBC Hgb Hct MCV MCH RDW Plt Count Lymph % (Auto) Evangeline % (Auto) Lymph # (Auto) Evangeline # (Auto) Seg Neutrophils % Seg Neuts % (Manual) Lymphocytes % (Manual) Monocytes % (Manual) Seg Neutrophils # Seg Neutrophils # Man Lymphocytes # (Manual) Monocytes # (Manual) PT INR APTT Fibrinogen D-Dimer ABG pH 7.039 L* 7.182 L* POC ABG pCO2 POC ABG pO2 ABG pO2 63.1 L ABG HCO3 17.4 L ABG O2 Saturation 73.4 L ABG Base Excess -12.6 L -7.1 L ABG Hemoglobin 7.7 L 6.9 L ABG Oxyhemoglobin Oxyhemoglobin 71.8 L 93.5 L Sodium Potassium Chloride 108.9 H Carbon Dioxide BUN 28 H Creatinine Glucose 293 H POC Glucose Lactic Acid Calcium 7.2 L Phosphorus Magnesium AST 106 H ALT 92 H Alkaline Phosphatase C-Reactive Protein Total Protein 5.6 L Albumin 3.3 L Triglycerides Ur Specific [place] Urine Creatinine Crossmatch 06/13/21 06/13/21 06/13/21 14:54 15:45 17:34 WBC RBC Hgb Hct MCV MCH RDW Plt Count Lymph % (Auto) Ev[place]eline % (Auto) Lymph # (Auto) Evangeline # (Auto) Seg Neutrophils % Seg Neuts % (Manual) Lymphocytes % (Manual) Monocytes % (Manual) Seg Neutrophils # Seg Neutrophils # Man Lymphocytes # (Manual) Monocytes # (Manual) PT INR APTT Fibrinogen D-Dimer ABG pH POC ABG pCO2 POC ABG pO2 ABG pO2 178.4 H ABG HCO3 ABG O2 Saturation 99.1 H ABG Base Excess ABG Hemoglobin 8.0 L ABG Oxyhemoglobin Oxyhemoglobin Sodium Potassium Chloride 107.3 H Carbon Dioxide 19 L BUN 33 H Creatinine 1.5 H Glucose 379 H POC Glucose Lactic Acid 5.30 H* Calcium 6.8 L Phosphorus Magnesium AST ALT Alkaline Phosphatase C-Reactive Protein Total Protein Albumin Triglycerides Ur Specific [place] Urine Creatinine Crossmatch 06/13/21 06/13/21 06/13/21 17:40 23:29 Unknown WBC 22.5 H RBC 3.16 L Hgb 8.0 L Hct 26.0 L MCV MCH 26 L RDW 21.4 H Plt Count Lymph % (Auto) [place] % (Auto) Lymph # (Auto) [place] # (Auto) Seg Neutrophils % Seg Neuts % (Manual) 88.0 H Lymphocytes % (Manual) 4.0 L Monocytes % (Manual) Seg Neutrophils # Seg Neutrophils # Man 19.8 H Lymphocytes # (Manual) 0.9 L Monocytes # (Manual) 1.4 H PT INR APTT Fibrinogen D-Dimer ABG pH POC ABG pCO2 POC ABG pO2 ABG pO2 ABG HCO3 ABG O2 Saturation ABG Base Excess ABG Hemoglobin ABG Oxyhemoglobin Oxyhemoglobin Sodium Potassium Chloride Carbon Dioxide BUN Creatinine Glucose POC Glucose 294 H 288 H Lactic Acid Calcium Phosphorus Magnesium AST ALT Alkaline Phosphatase C-Reactive Protein Total Protein Albumin Triglycerides Ur Specific [place] Urine Creatinine Crossmatch 06/13/21 06/14/21 06/14/21 Unknown 05:39 06:15 WBC RBC 2.93 L Hgb 7.2 L Hct 23.2 L MCV MCH 25 L RDW 21.2 H Plt Count Lymph % (Auto) [place] % (Auto) Lymph # (Auto) [place] # (Auto) Seg Neutrophils % Seg Neuts % (Manual) Lymphocytes % (Manual) Monocytes % (Manual) Seg Neutrophils # Seg Neutrophils # Man Lymphocytes # (Manual) Monocytes # (Manual) PT 17.6 H INR 1.31 H APTT Fibrinogen 546 H D-Dimer 1244.63 H ABG pH POC ABG pCO2 POC ABG pO2 ABG pO2 ABG HCO3 ABG O2 Saturation ABG Base Excess ABG Hemoglobin ABG Oxyhemoglobin Oxyhemoglobin Sodium Potassium Chloride Carbon Dioxide BUN Creatinine Glucose POC Glucose 246 H Lactic Acid Calcium Phosphorus Magnesium AST ALT Alkaline Phosphatase C-Reactive Protein Total Protein Albumin Triglycerides Ur Specific [place] Urine Creatinine Crossmatch 06/14/21 06/14/21 06/14/21 06:15 06:15 09:13 WBC RBC Hgb Hct MCV MCH RDW Plt Count Lymph % (Auto) Ev[place]eline % (Auto) Lymph # (Auto) Ev[place]eline # (Auto) Seg Neutrophils % Seg Neuts % (Manual) Lymphocytes % (Manual) Monocytes % (Manual) Seg Neutrophils # Seg Neutrophils # Man Lymphocytes # (Manual) Monocytes # (Manual) PT INR APTT Fibrinogen D-Dimer ABG pH POC ABG pCO2 POC ABG pO2 ABG pO2 183.0 H ABG HCO3 ABG O2 Saturation 99.2 H ABG Base Excess ABG Hemoglobin 6.6 L ABG Oxyhemoglobin Oxyhemoglobin Sodium 147 H Potassium Chloride 112.5 H Carbon Dioxide 21 L BUN 36 H Creatinine 1.4 H Glucose 281 H POC Glucose Lactic Acid Calcium 6.9 L Phosphorus Magnesium AST ALT Alkaline Phosphatase C-Reactive Protein Total Protein Albumin Triglycerides 189 H Ur Specific [place] Urine Creatinine Crossmatch 06/14/21 06/14/21 06/14/21 10:45 12:16 13:30 WBC RBC Hgb 7.1 L Hct 22.3 L MCV MCH RDW Plt Count Lymph % (Auto) [place] % (Auto) Lymph # (Auto) [place] # (Auto) Seg Neutrophils % Seg Neuts % (Manual) Lymphocytes % (Manual) Monocytes % (Manual) Seg Neutrophils # Seg Neutrophils # Man Lymphocytes # (Manual) Monocytes # (Manual) PT INR APTT Fibrinogen D-Dimer ABG pH 7.205 L POC ABG pCO2 POC ABG pO2 ABG pO2 261.3 H ABG HCO3 ABG O2 Saturation 99.4 H ABG Base Excess -7.2 L ABG Hemoglobin 7.6 L ABG Oxyhemoglobin Oxyhemoglobin Sodium Potassium Chloride Carbon Dioxide BUN Creatinine Glucose POC Glucose 174 H Lactic Acid Calcium Phosphorus Magnesium AST ALT Alkaline Phosphatase C-Reactive Protein Total Protein Albumin Triglycerides Ur Specific [place] Urine Creatinine Crossmatch 06/14/21 06/14/21 06/15/21 17:40 18:43 00:06 WBC RBC Hgb Hct MCV MCH RDW Plt Count Lymph % (Auto) [place] % (Auto) Lymph # (Auto) [place] # (Auto) Seg Neutrophils % Seg Neuts % (Manual) Lymphocytes % (Manual) Monocytes % (Manual) Seg Neutrophils # Seg Neutrophils # Man Lymphocytes # (Manual) Monocytes # (Manual) PT INR APTT Fibrinogen D-Dimer ABG pH 7.292 L POC ABG pCO2 POC ABG pO2 ABG pO2 78.8 L ABG HCO3 ABG O2 Saturation ABG Base Excess -5.0 L ABG Hemoglobin 9.1 L ABG Oxyhemoglobin Oxyhemoglobin 93.7 L Sodium Potassium Chloride Carbon Dioxide BUN Creatinine Glucose POC Glucose 182 H 144 H Lactic Acid Calcium Phosphorus Magnesium AST ALT Alkaline Phosphatase C-Reactive Protein Total Protein Albumin Triglycerides Ur Specific [place] Urine Creatinine Crossmatch 06/15/21 06/15/21 06/15/21 03:55 03:56 10:40 WBC RBC Hgb 8.4 L Hct 25.8 L MCV MCH RDW Plt Count Lymph % (Auto) [place] % (Auto) Lymph # (Auto) [place] # (Auto) Seg Neutrophils % Seg Neuts % (Manual) Lymphocytes % (Manual) Monocytes % (Manual) Seg Neutrophils # Seg Neutrophils # Man Lymphocytes # (Manual) Monocytes # (Manual) PT INR APTT Fibrinogen D-Dimer ABG pH POC ABG pCO2 POC ABG pO2 ABG pO2 ABG HCO3 ABG O2 Saturation ABG Base Excess ABG Hemoglobin ABG Oxyhemoglobin Oxyhemoglobin Sodium 147 H Potassium Chloride 112.2 H Carbon Dioxide 21 L BUN 47 H Creatinine 1.9 H Glucose 272 H POC Glucose Lactic Acid Calcium 7.3 L Phosphorus Magnesium AST 64 H ALT 106 H Alkaline Phosphatase C-Reactive Protein Total Protein 5.1 L Albumin 2.9 L Triglycerides Ur Specific [place] Urine Creatinine 81.1 H Crossmatch 06/15/21 06/15/21 06/15/21 11:46 17:16 23:17 WBC RBC Hgb Hct MCV MCH RDW Plt Count Lymph % (Auto) [place] % (Auto) Lymph # (Auto) [place] # (Auto) Seg Neutrophils % Seg Neuts % (Manual) Lymphocytes % (Manual) Monocytes % (Manual) Seg Neutrophils # Seg Neutrophils # Man Lymphocytes # (Manual) Monocytes # (Manual) PT INR APTT Fibrinogen D-Dimer ABG pH POC ABG pCO2 POC ABG pO2 ABG pO2 ABG HCO3 ABG O2 Saturation ABG Base Excess ABG Hemoglobin ABG Oxyhemoglobin Oxyhemoglobin Sodium Potassium Chloride Carbon Dioxide BUN Creatinine Glucose POC Glucose 271 H 268 H 264 H Lactic Acid Calcium Phosphorus Magnesium AST ALT Alkaline Phosphatase C-Reactive Protein Total Protein Albumin Triglycerides Ur Specific [place] Urine Creatinine Crossmatch 06/15/21 06/15/21 06/16/21 Unknown Unknown 04:32 WBC RBC 3.21 L 3.16 L Hgb 8.4 L 8.2 L Hct 26.1 L 25.4 L MCV MCH 26 L 26 L RDW 21.3 H 21.2 H Plt Count 105 L 118 L Lymph % (Auto) [place] % (Auto) Lymph # (Auto) [place] # (Auto) Seg Neutrophils % Seg Neuts % (Manual) Lymphocytes % (Manual) Monocytes % (Manual) Seg Neutrophils # Seg Neutrophils # Man Lymphocytes # (Manual) Monocytes # (Manual) PT INR APTT Fibrinogen D-Dimer ABG pH 7.465 H POC ABG pCO2 POC ABG pO2 ABG pO2 114.1 H ABG HCO3 ABG O2 Saturation ABG Base Excess ABG Hemoglobin 8.4 L ABG Oxyhemoglobin Oxyhemoglobin Sodium Potassium Chloride Carbon Dioxide BUN Creatinine Glucose POC Glucose Lactic Acid Calcium Phosphorus Magnesium AST ALT Alkaline Phosphatase C-Reactive Protein Total Protein Albumin Triglycerides Ur Specific [place] Urine Creatinine Crossmatch 06/16/21 06/16/21 06/16/21 04:32 04:32 05:08 WBC RBC Hgb Hct MCV MCH RDW Plt Count Lymph % (Auto) [place] % (Auto) Lymph # (Auto) [place] # (Auto) Seg Neutrophils % Seg Neuts % (Manual) Lymphocytes % (Manual) Monocytes % (Manual) Seg Neutrophils # Seg Neutrophils # Man Lymphocytes # (Manual) Monocytes # (Manual) PT INR APTT Fibrinogen D-Dimer ABG pH POC ABG pCO2 POC ABG pO2 ABG pO2 ABG HCO3 ABG O2 Saturation ABG Base Excess ABG Hemoglobin ABG Oxyhemoglobin Oxyhemoglobin Sodium 148 H Potassium 3.3 L Chloride 115.1 H Carbon Dioxide 21 L BUN 54 H Creatinine 1.6 H Glucose 367 H POC Glucose 356 H Lactic Acid Calcium 7.4 L Phosphorus Magnesium AST ALT Alkaline Phosphatase C-Reactive Protein 3.30 H Total Protein Albumin Triglycerides Ur Specific [place] Urine Creatinine Crossmatch 06/16/21 06/16/21 06/16/21 05:30 11:46 17:03 WBC RBC Hgb Hct MCV MCH RDW Plt Count Lymph % (Auto) [place] % (Auto) Lymph # (Auto) [place] # (Auto) Seg Neutrophils % Seg Neuts % (Manual) Lymphocytes % (Manual) Monocytes % (Manual) Seg Neutrophils # Seg Neutrophils # Man Lymphocytes # (Manual) Monocytes # (Manual) PT INR APTT Fibrinogen D-Dimer ABG pH 7.475 H POC ABG pCO2 POC ABG pO2 ABG pO2 171.8 H ABG HCO3 ABG O2 Saturation 99.1 H ABG Base Excess ABG Hemoglobin 11.7 L ABG Oxyhemoglobin Oxyhemoglobin Sodium Potassium Chloride Carbon Dioxide BUN Creatinine Glucose POC Glucose 309 H 345 H Lactic Acid Calcium Phosphorus Magnesium AST ALT Alkaline Phosphatase C-Reactive Protein Total Protein Albumin Triglycerides Ur Specific [place] Urine Creatinine Crossmatch 06/16/21 06/16/21 06/17/21 20:18 23:22 04:50 WBC RBC Hgb Hct MCV MCH RDW Plt Count Lymph % (Auto) [place] % (Auto) Lymph # (Auto) [place] # (Auto) Seg Neutrophils % Seg Neuts % (Manual) Lymphocytes % (Manual) Monocytes % (Manual) Seg Neutrophils # Seg Neutrophils # Man Lymphocytes # (Manual) Monocytes # (Manual) PT INR APTT Fibrinogen D-Dimer ABG pH 7.479 H POC ABG pCO2 POC ABG pO2 ABG pO2 143.1 H ABG HCO3 ABG O2 Saturation ABG Base Excess ABG Hemoglobin 10.0 L ABG Oxyhemoglobin Oxyhemoglobin Sodium Potassium Chloride Carbon Dioxide BUN Creatinine Glucose POC Glucose 325 H 315 H Lactic Acid Calcium Phosphorus Magnesium AST ALT Alkaline Phosphatase C-Reactive Protein Total Protein Albumin Triglycerides Ur Specific [place] Urine Creatinine Crossmatch 06/17/21 06/17/21 06/17/21 05:18 05:30 05:30 WBC RBC 3.17 L Hgb 8.2 L Hct 25.5 L MCV MCH 26 L RDW 21.2 H Plt Count 128 L Lymph % (Auto) [place] % (Auto) Lymph # (Auto) [place] # (Auto) Seg Neutrophils % Seg Neuts % (Manual) Lymphocytes % (Manual) Monocytes % (Manual) Seg Neutrophils # Seg Neutrophils # Man Lymphocytes # (Manual) Monocytes # (Manual) PT INR APTT Fibrinogen D-Dimer ABG pH POC ABG pCO2 POC ABG pO2 ABG pO2 ABG HCO3 ABG O2 Saturation ABG Base Excess ABG Hemoglobin ABG Oxyhemoglobin Oxyhemoglobin Sodium 148 H Potassium Chloride 113.7 H Carbon Dioxide 20 L BUN 57 H Creatinine 1.4 H Glucose 351 H POC Glucose 324 H Lactic Acid Calcium 8.0 L Phosphorus 2.30 L Magnesium AST ALT Alkaline Phosphatase C-Reactive Protein Total Protein Albumin Triglycerides Ur Specific [place] Urine Creatinine Crossmatch 06/17/21 06/17/21 06/17/21 11:49 17:43 21:42 WBC RBC Hgb Hct MCV MCH RDW Plt Count Lymph % (Auto) [place] % (Auto) Lymph # (Auto) [place] # (Auto) Seg Neutrophils % Seg Neuts % (Manual) Lymphocytes % (Manual) Monocytes % (Manual) Seg Neutrophils # Seg Neutrophils # Man Lymphocytes # (Manual) Monocytes # (Manual) PT INR APTT Fibrinogen D-Dimer ABG pH POC ABG pCO2 POC ABG pO2 ABG pO2 ABG HCO3 ABG O2 Saturation ABG Base Excess ABG Hemoglobin ABG Oxyhemoglobin Oxyhemoglobin Sodium Potassium Chloride Carbon Dioxide BUN Creatinine Glucose POC Glucose 305 H 307 H 286 H Lactic Acid Calcium Phosphorus Magnesium AST ALT Alkaline Phosphatase C-Reactive Protein Total Protein Albumin Triglycerides Ur Specific [place] Urine Creatinine Crossmatch 06/17/21 06/18/21 06/18/21 23:59 04:20 04:37 WBC RBC 3.53 L Hgb 9.1 L Hct 28.7 L MCV MCH 26 L RDW 21.3 H Plt Count Lymph % (Auto) [place] % (Auto) Lymph # (Auto) [place] # (Auto) Seg Neutrophils % Seg Neuts % (Manual) Lymphocytes % (Manual) Monocytes % (Manual) Seg Neutrophils # Seg Neutrophils # Man Lymphocytes # (Manual) Monocytes # (Manual) PT INR APTT Fibrinogen D-Dimer ABG pH 7.495 H POC ABG pCO2 POC ABG pO2 ABG pO2 108.3 H ABG HCO3 ABG O2 Saturation ABG Base Excess -2.1 L ABG Hemoglobin 10.0 L ABG Oxyhemoglobin Oxyhemoglobin Sodium Potassium Chloride Carbon Dioxide BUN Creatinine Glucose POC Glucose 264 H Lactic Acid Calcium Phosphorus Magnesium AST ALT Alkaline Phosphatase C-Reactive Protein Total Protein Albumin Triglycerides Ur Specific [place] Urine Creatinine Crossmatch 06/18/21 06/18/21 06/18/21 04:37 05:32 11:21 WBC RBC Hgb Hct MCV MCH RDW Plt Count Lymph % (Auto) [place] % (Auto) Lymph # (Auto) [place] # (Auto) Seg Neutrophils % Seg Neuts % (Manual) Lymphocytes % (Manual) Monocytes % (Manual) Seg Neutrophils # Seg Neutrophils # Man Lymphocytes # (Manual) Monocytes # (Manual) PT INR APTT Fibrinogen D-Dimer ABG pH POC ABG pCO2 POC ABG pO2 ABG pO2 ABG HCO3 ABG O2 Saturation ABG Base Excess ABG Hemoglobin ABG Oxyhemoglobin Oxyhemoglobin Sodium 148 H Potassium Chloride 114.7 H Carbon Dioxide BUN 59 H Creatinine 1.3 H Glucose 329 H POC Glucose 293 H 291 H Lactic Acid Calcium 8.1 L Phosphorus Magnesium AST ALT Alkaline Phosphatase C-Reactive Protein Total Protein Albumin Triglycerides Ur Specific [place] Urine Creatinine Crossmatch 06/18/21 06/18/21 06/19/21 18:21 21:46 00:15 WBC RBC Hgb Hct MCV MCH RDW Plt Count Lymph % (Auto) [place] % (Auto) Lymph # (Auto) [place] # (Auto) Seg Neutrophils % Seg Neuts % (Manual) Lymphocytes % (Manual) Monocytes % (Manual) Seg Neutrophils # Seg Neutrophils # Man Lymphocytes # (Manual) Monocytes # (Manual) PT INR APTT Fibrinogen D-Dimer ABG pH POC ABG pCO2 POC ABG pO2 ABG pO2 ABG HCO3 ABG O2 Saturation ABG Base Excess ABG Hemoglobin ABG Oxyhemoglobin Oxyhemoglobin Sodium Potassium Chloride Carbon Dioxide BUN Creatinine Glucose POC Glucose 239 H 259 H 310 H Lactic Acid Calcium Phosphorus Magnesium AST ALT Alkaline Phosphatase C-Reactive Protein Total Protein Albumin Triglycerides Ur Specific [place] Urine Creatinine Crossmatch 06/19/21 06/19/21 06/19/21 04:00 04:00 04:50 WBC RBC 3.64 L Hgb 9.1 L Hct 29.1 L MCV MCH 25 L RDW 21.5 H Plt Count Lymph % (Auto) [place] % (Auto) Lymph # (Auto) [place] # (Auto) Seg Neutrophils % Seg Neuts % (Manual) Lymphocytes % (Manual) Monocytes % (Manual) Seg Neutrophils # Seg Neutrophils # Man Lymphocytes # (Manual) Monocytes # (Manual) PT INR APTT Fibrinogen D-Dimer ABG pH POC ABG pCO2 POC ABG pO2 ABG pO2 78.9 L ABG HCO3 ABG O2 Saturation ABG Base Excess -3.2 L ABG Hemoglobin 7.6 L ABG Oxyhemoglobin Oxyhemoglobin Sodium 148 H Potassium Chloride 114.9 H Carbon Dioxide 19 L BUN 59 H Creatinine Glucose 345 H POC Glucose Lactic Acid Calcium 8.1 L Phosphorus 4.60 H D Magnesium 2.40 H AST ALT Alkaline Phosphatase C-Reactive Protein Total Protein Albumin Triglycerides Ur Specific [place] Urine Creatinine Crossmatch 06/19/21 06/19/21 06/19/21 06:28 11:11 17:20 WBC RBC Hgb Hct MCV MCH RDW Plt Count Lymph % (Auto) [place] % (Auto) Lymph # (Auto) [place] # (Auto) Seg Neutrophils % Seg Neuts % (Manual) Lymphocytes % (Manual) Monocytes % (Manual) Seg Neutrophils # Seg Neutrophils # Man Lymphocytes # (Manual) Monocytes # (Manual) PT 29.7 H INR 2.57 H APTT Fibrinogen D-Dimer ABG pH POC ABG pCO2 POC ABG pO2 ABG pO2 ABG HCO3 ABG O2 Saturation ABG Base Excess ABG Hemoglobin ABG Oxyhemoglobin Oxyhemoglobin Sodium Potassium Chloride Carbon Dioxide BUN Creatinine Glucose POC Glucose 279 H 275 H Lactic Acid Calcium Phosphorus Magnesium AST ALT Alkaline Phosphatase C-Reactive Protein Total Protein Albumin Triglycerides Ur Specific [place] Urine Creatinine Crossmatch 06/19/21 06/19/21 06/19/21 18:30 19:20 23:27 WBC RBC Hgb 8.0 L Hct 25.0 L MCV MCH RDW Plt Count Lymph % (Auto) [place] % (Auto) Lymph # (Auto) [place] # (Auto) Seg Neutrophils % Seg Neuts % (Manual) Lymphocytes % (Manual) Monocytes % (Manual) Seg Neutrophils # Seg Neutrophils # Man Lymphocytes # (Manual) Monocytes # (Manual) PT INR APTT Fibrinogen D-Dimer ABG pH POC ABG pCO2 POC ABG pO2 ABG pO2 ABG HCO3 ABG O2 Saturation ABG Base Excess ABG Hemoglobin ABG Oxyhemoglobin Oxyhemoglobin Sodium Potassium Chloride Carbon Dioxide BUN Creatinine Glucose POC Glucose 279 H 290 H Lactic Acid Calcium Phosphorus Magnesium AST ALT Alkaline Phosphatase C-Reactive Protein Total Protein Albumin Triglycerides Ur Specific [place] Urine Creatinine Crossmatch 06/20/21 06/20/21 06/20/21 00:00 04:33 04:33 WBC 22.3 H RBC 3.31 L Hgb 7.4 L 8.5 L Hct 22.5 L 26.5 L MCV MCH 26 L RDW 21.5 H Plt Count Lymph % (Auto) [place] % (Auto) Lymph # (Auto) [place] # (Auto) Seg Neutrophils % Seg Neuts % (Manual) Lymphocytes % (Manual) Monocytes % (Manual) Seg Neutrophils # Seg Neutrophils # Man Lymphocytes # (Manual) Monocytes # (Manual) PT INR APTT Fibrinogen D-Dimer ABG pH POC ABG pCO2 POC ABG pO2 ABG pO2 ABG HCO3 ABG O2 Saturation ABG Base Excess ABG Hemoglobin ABG Oxyhemoglobin Oxyhemoglobin Sodium 148 H Potassium Chloride 114.2 H Carbon Dioxide BUN 70 H Creatinine 1.4 H Glucose 313 H POC Glucose Lactic Acid Calcium 8.2 L Phosphorus Magnesium 2.50 H AST ALT Alkaline Phosphatase C-Reactive Protein Total Protein Albumin Triglycerides Ur Specific [place] Urine Creatinine Crossmatch 06/20/21 06/20/21 06/20/21 04:33 05:27 11:21 WBC RBC Hgb Hct MCV MCH RDW Plt Count Lymph % (Auto) [place] % (Auto) Lymph # (Auto) [place] # (Auto) Seg Neutrophils % Seg Neuts % (Manual) Lymphocytes % (Manual) Monocytes % (Manual) Seg Neutrophils # Seg Neutrophils # Man Lymphocytes # (Manual) Monocytes # (Manual) PT 18.3 H INR 1.37 H APTT Fibrinogen D-Dimer ABG pH POC ABG pCO2 POC ABG pO2 ABG pO2 ABG HCO3 ABG O2 Saturation ABG Base Excess ABG Hemoglobin ABG Oxyhemoglobin Oxyhemoglobin Sodium Potassium Chloride Carbon Dioxide BUN Creatinine Glucose POC Glucose 288 H 306 H Lactic Acid Calcium Phosphorus Magnesium AST ALT Alkaline Phosphatase C-Reactive Protein Total Protein Albumin Triglycerides Ur Specific [place] Urine Creatinine Crossmatch 06/20/21 06/20/21 06/20/21 12:23 15:56 18:20 WBC RBC Hgb 8.2 L 8.1 L Hct 25.9 L 25.5 L MCV MCH RDW Plt Count Lymph % (Auto) [place] % (Auto) Lymph # (Auto) [place] # (Auto) Seg Neutrophils % Seg Neuts % (Manual) Lymphocytes % (Manual) Monocytes % (Manual) Seg Neutrophils # Seg Neutrophils # Man Lymphocytes # (Manual) Monocytes # (Manual) PT INR APTT Fibrinogen D-Dimer ABG pH POC ABG pCO2 POC ABG pO2 ABG pO2 ABG HCO3 ABG O2 Saturation ABG Base Excess ABG Hemoglobin ABG Oxyhemoglobin Oxyhemoglobin Sodium Potassium Chloride Carbon Dioxide BUN Creatinine Glucose POC Glucose 293 H Lactic Acid Calcium Phosphorus Magnesium AST ALT Alkaline Phosphatase C-Reactive Protein Total Protein Albumin Triglycerides Ur Specific [place] Urine Creatinine Crossmatch 06/20/21 06/21/21 06/21/21 23:11 04:20 04:42 WBC 15.1 H RBC 2.84 L Hgb 7.3 L Hct 23.1 L MCV MCH 26 L RDW 21.5 H Plt Count Lymph % (Auto) 3.5 L [place] % (Auto) 11.7 H Lymph # (Auto) 0.5 L [place] # (Auto) 1.8 H Seg Neutrophils % 84.7 H Seg Neuts % (Manual) Lymphocytes % (Manual) Monocytes % (Manual) Seg Neutrophils # 12.8 H Seg Neutrophils # Man Lymphocytes # (Manual) Monocytes # (Manual) PT INR APTT Fibrinogen D-Dimer ABG pH POC ABG pCO2 POC ABG pO2 ABG pO2 98.5 H ABG HCO3 ABG O2 Saturation ABG Base Excess ABG Hemoglobin 7.2 L ABG Oxyhemoglobin Oxyhemoglobin Sodium Potassium Chloride Carbon Dioxide BUN Creatinine Glucose POC Glucose 206 H Lactic Acid Calcium Phosphorus Magnesium AST ALT Alkaline Phosphatase C-Reactive Protein Total Protein Albumin Triglycerides Ur Specific [place] Urine Creatinine Crossmatch 06/21/21 06/21/21 06/21/21 04:42 05:08 11:06 WBC RBC Hgb Hct MCV MCH RDW Plt Count Lymph % (Auto) [place] % (Auto) Lymph # (Auto) [place] # (Auto) Seg Neutrophils % Seg Neuts % (Manual) Lymphocytes % (Manual) Monocytes % (Manual) Seg Neutrophils # Seg Neutrophils # Man Lymphocytes # (Manual) Monocytes # (Manual) PT INR APTT Fibrinogen D-Dimer ABG pH POC ABG pCO2 POC ABG pO2 ABG pO2 ABG HCO3 ABG O2 Saturation ABG Base Excess ABG Hemoglobin ABG Oxyhemoglobin Oxyhemoglobin Sodium 151 H Potassium Chloride 117.2 H Carbon Dioxide 21 L BUN 75 H Creatinine 1.6 H Glucose 216 H POC Glucose 190 H 204 H Lactic Acid Calcium 7.9 L Phosphorus Magnesium 2.60 H AST ALT Alkaline Phosphatase C-Reactive Protein Total Protein Albumin Triglycerides 254 H Ur Specific [place] Urine Creatinine Crossmatch 06/21/21 06/21/21 06/21/21 14:00 16:42 21:52 WBC RBC Hgb 7.1 L 7.2 L Hct 22.0 L 22.1 L MCV MCH RDW Plt Count Lymph % (Auto) [place] % (Auto) Lymph # (Auto) [place] # (Auto) Seg Neutrophils % Seg Neuts % (Manual) Lymphocytes % (Manual) Monocytes % (Manual) Seg Neutrophils # Seg Neutrophils # Man Lymphocytes # (Manual) Monocytes # (Manual) PT INR APTT Fibrinogen D-Dimer ABG pH POC ABG pCO2 POC ABG pO2 ABG pO2 ABG HCO3 ABG O2 Saturation ABG Base Excess ABG Hemoglobin ABG Oxyhemoglobin Oxyhemoglobin Sodium Potassium Chloride Carbon Dioxide BUN Creatinine Glucose POC Glucose 207 H Lactic Acid Calcium Phosphorus Magnesium AST ALT Alkaline Phosphatase C-Reactive Protein Total Protein Albumin Triglycerides Ur Specific [place] Urine Creatinine Crossmatch 06/21/21 06/22/21 06/22/21 23:29 04:30 04:30 WBC 16.8 H RBC 2.93 L Hgb 7.4 L Hct 23.9 L MCV MCH 25 L RDW 21.8 H Plt Count Lymph % (Auto) [place] % (Auto) Lymph # (Auto) [place] # (Auto) Seg Neutrophils % Seg Neuts % (Manual) Lymphocytes % (Manual) Monocytes % (Manual) Seg Neutrophils # Seg Neutrophils # Man Lymphocytes # (Manual) Monocytes # (Manual) PT INR APTT Fibrinogen D-Dimer ABG pH POC ABG pCO2 POC ABG pO2 ABG pO2 ABG HCO3 ABG O2 Saturation ABG Base Excess ABG Hemoglobin ABG Oxyhemoglobin Oxyhemoglobin Sodium 151 H Potassium Chloride 118.7 H Carbon Dioxide BUN 57 H Creatinine Glucose 238 H POC Glucose 273 H Lactic Acid Calcium 8.0 L Phosphorus Magnesium 2.70 H AST ALT Alkaline Phosphatase C-Reactive Protein Total Protein Albumin Triglycerides Ur Specific [place] Urine Creatinine Crossmatch 06/22/21 06/22/21 06/22/21 05:17 11:31 14:20 WBC RBC Hgb 7.4 L Hct 22.5 L MCV MCH RDW Plt Count Lymph % (Auto) [place] % (Auto) Lymph # (Auto) [place] # (Auto) Seg Neutrophils % Seg Neuts % (Manual) Lymphocytes % (Manual) Monocytes % (Manual) Seg Neutrophils # Seg Neutrophils # Man Lymphocytes # (Manual) Monocytes # (Manual) PT INR APTT Fibrinogen D-Dimer ABG pH POC ABG pCO2 POC ABG pO2 ABG pO2 ABG HCO3 ABG O2 Saturation ABG Base Excess ABG Hemoglobin ABG Oxyhemoglobin Oxyhemoglobin Sodium Potassium Chloride Carbon Dioxide BUN Creatinine Glucose POC Glucose 214 H 214 H Lactic Acid Calcium Phosphorus Magnesium AST ALT Alkaline Phosphatase C-Reactive Protein Total Protein Albumin Triglycerides Ur Specific [place] Urine Creatinine Crossmatch 06/22/21 06/22/21 06/23/21 17:18 23:47 05:33 WBC RBC Hgb Hct MCV MCH RDW Plt Count Lymph % (Auto) [place] % (Auto) Lymph # (Auto) [place] # (Auto) Seg Neutrophils % Seg Neuts % (Manual) Lymphocytes % (Manual) Monocytes % (Manual) Seg Neutrophils # Seg Neutrophils # Man Lymphocytes # (Manual) Monocytes # (Manual) PT INR APTT Fibrinogen D-Dimer ABG pH POC ABG pCO2 POC ABG pO2 ABG pO2 ABG HCO3 ABG O2 Saturation ABG Base Excess ABG Hemoglobin ABG Oxyhemoglobin Oxyhemoglobin Sodium Potassium Chloride Carbon Dioxide BUN Creatinine Glucose POC Glucose 238 H 227 H 202 H Lactic Acid Calcium Phosphorus Magnesium AST ALT Alkaline Phosphatase C-Reactive Protein Total Protein Albumin Triglycerides Ur Specific [place] Urine Creatinine Crossmatch 06/23/21 06/23/21 06/23/21 10:04 10:04 11:06 WBC 20.3 H RBC 2.71 L Hgb 7.3 L Hct 21.8 L MCV MCH 27 L RDW 22.1 H Plt Count Lymph % (Auto) [place] % (Auto) Lymph # (Auto) [place] # (Auto) Seg Neutrophils % Seg Neuts % (Manual) Lymphocytes % (Manual) Monocytes % (Manual) Seg Neutrophils # Seg Neutrophils # Man Lymphocytes # (Manual) Monocytes # (Manual) PT INR APTT Fibrinogen D-Dimer ABG pH POC ABG pCO2 POC ABG pO2 ABG pO2 ABG HCO3 ABG O2 Saturation ABG Base Excess ABG Hemoglobin ABG Oxyhemoglobin Oxyhemoglobin Sodium 151 H Potassium 3.2 L Chloride 116.9 H Carbon Dioxide BUN 40 H Creatinine Glucose 208 H POC Glucose 204 H Lactic Acid Calcium 8.0 L Phosphorus 1.80 L D Magnesium AST ALT Alkaline Phosphatase C-Reactive Protein Total Protein Albumin Triglycerides Ur Specific [place] Urine Creatinine Crossmatch 06/23/21 06/23/21 06/24/21 16:11 23:47 04:00 WBC 16.9 H RBC 2.49 L Hgb 6.6 L Hct 20.3 L MCV MCH 26 L RDW 22.6 H Plt Count Lymph % (Auto) [place] % (Auto) Lymph # (Auto) [place] # (Auto) Seg Neutrophils % Seg Neuts % (Manual) Lymphocytes % (Manual) Monocytes % (Manual) Seg Neutrophils # Seg Neutrophils # Man Lymphocytes # (Manual) Monocytes # (Manual) PT INR APTT Fibrinogen D-Dimer ABG pH POC ABG pCO2 POC ABG pO2 ABG pO2 ABG HCO3 ABG O2 Saturation ABG Base Excess ABG Hemoglobin ABG Oxyhemoglobin Oxyhemoglobin Sodium Potassium Chloride Carbon Dioxide BUN Creatinine Glucose POC Glucose 228 H 189 H Lactic Acid Calcium Phosphorus Magnesium AST ALT Alkaline Phosphatase C-Reactive Protein Total Protein Albumin Triglycerides Ur Specific [place] Urine Creatinine Crossmatch 06/24/21 06/24/21 06/24/21 04:00 05:43 06:40 WBC RBC Hgb Hct MCV MCH RDW Plt Count Lymph % (Auto) [place] % (Auto) Lymph # (Auto) [place] # (Auto) Seg Neutrophils % Seg Neuts % (Manual) Lymphocytes % (Manual) Monocytes % (Manual) Seg Neutrophils # Seg Neutrophils # Man Lymphocytes # (Manual) Monocytes # (Manual) PT INR APTT Fibrinogen D-Dimer ABG pH POC ABG pCO2 POC ABG pO2 ABG pO2 ABG HCO3 ABG O2 Saturation ABG Base Excess ABG Hemoglobin ABG Oxyhemoglobin Oxyhemoglobin Sodium 148 H Potassium 3.2 L Chloride 115.6 H Carbon Dioxide BUN 35 H Creatinine Glucose 153 H POC Glucose 134 H Lactic Acid Calcium 7.9 L Phosphorus 2.40 L D Magnesium AST ALT Alkaline Phosphatase C-Reactive Protein Total Protein Albumin Triglycerides Ur Specific [place] Urine Creatinine Crossmatch See Detail 06/24/21 06/24/21 06/24/21 11:08 16:47 21:49 WBC RBC Hgb Hct MCV MCH RDW Plt Count Lymph % (Auto) [place] % (Auto) Lymph # (Auto) [place] # (Auto) Seg Neutrophils % Seg Neuts % (Manual) Lymphocytes % (Manual) Monocytes % (Manual) Seg Neutrophils # Seg Neutrophils # Man Lymphocytes # (Manual) Monocytes # (Manual) PT INR APTT Fibrinogen D-Dimer ABG pH POC ABG pCO2 POC ABG pO2 ABG pO2 ABG HCO3 ABG O2 Saturation ABG Base Excess ABG Hemoglobin ABG Oxyhemoglobin Oxyhemoglobin Sodium Potassium Chloride Carbon Dioxide BUN Creatinine Glucose POC Glucose 153 H 201 H 132 H Lactic Acid Calcium Phosphorus Magnesium AST ALT Alkaline Phosphatase C-Reactive Protein Total Protein Albumin Triglycerides Ur Specific [place] Urine Creatinine Crossmatch 06/24/21 06/25/21 06/25/21 23:24 05:30 09:00 WBC RBC Hgb 8.3 L Hct 27.0 L MCV MCH RDW Plt Count Lymph % (Auto) [place] % (Auto) Lymph # (Auto) [place] # (Auto) Seg Neutrophils % Seg Neuts % (Manual) Lymphocytes % (Manual) Monocytes % (Manual) Seg Neutrophils # Seg Neutrophils # Man Lymphocytes # (Manual) Monocytes # (Manual) PT INR APTT Fibrinogen D-Dimer ABG pH POC ABG pCO2 POC ABG pO2 ABG pO2 ABG HCO3 ABG O2 Saturation ABG Base Excess ABG Hemoglobin ABG Oxyhemoglobin Oxyhemoglobin Sodium Potassium Chloride Carbon Dioxide BUN Creatinine Glucose POC Glucose 170 H 151 H Lactic Acid Calcium Phosphorus Magnesium AST ALT Alkaline Phosphatase C-Reactive Protein Total Protein Albumin Triglycerides Ur Specific [place] Urine Creatinine Crossmatch 06/25/21 06/25/21 Unknown Unknown WBC 16.5 H RBC 2.90 L Hgb 8.0 L Hct 23.8 L MCV MCH RDW 22.8 H Plt Count Lymph % (Auto) [place] % (Auto) Lymph # (Auto) [place] # (Auto) Seg Neutrophils % Seg Neuts % (Manual) Lymphocytes % (Manual) Monocytes % (Manual) Seg Neutrophils # Seg Neutrophils # Man Lymphocytes # (Manual) Monocytes # (Manual) PT INR APTT Fibrinogen D-Dimer ABG pH POC ABG pCO2 POC ABG pO2 ABG pO2 ABG HCO3 ABG O2 Saturation ABG Base Excess ABG Hemoglobin ABG Oxyhemoglobin Oxyhemoglobin Sodium 149 H Potassium Chloride 115.6 H Carbon Dioxide BUN 28 H Creatinine Glucose 157 H POC Glucose Lactic Acid Calcium 8.0 L Phosphorus Magnesium AST ALT Alkaline Phosphatase C-Reactive Protein Total Protein Albumin Triglycerides Ur Specific [place] Urine Creatinine Crossmatch
[2021-06-25] MEDS: PIPERACIL/TAZOBACTA 4.5/NS 100 4.5 GM/100 ML VIAL IV SCH ×2 (11:44→18:04)
[2021-06-25] MEDS: hydrALAZINE 100 MG TAB FEEDTUBE SCH ×3 (13:03→22:00)
[2021-06-25] MEDS: FREE WATER PO SCH ×2 (13:03→22:35)
[2021-06-25 14:56] LABS: Hematocrit 27.5 % (30.3-42.9); Hemoglobin 8.5 gm/dl (10.1-14.3)
--- NOTE | 2021-06-25 15:51 | Progress Note ---
Assessment and Plan Cultures: 06/12/2021 blood cultures: no growth A/P: 76-year-old female with diabetes, hypertension, gout was admitted to the hospital on 06/11/2021 with swelling of the submandibular region, tongue and difficulty breathing, labs also revealed severe coagulopathy due to Coumadin. 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 Shock resolved. s/p tracheostomy and PEG tube placement 06/19/2021. #Acute respiratory failure: on the vent #Right-sided pneumothorax: s/p chest tube. #Diabetes mellitus, uncontrolled #Coagulopathy: Secondary to Coumadin. #Acute blood loss anemia Recs: -continue Zosyn -steroid taper per pulm/ICU -awaiting transfer to [place] for ENT joleneal Sinai Small MD [facility] ([facility]) O: [phone] F: [phone] Subjective Date of service: 06/25/21 Interval history: Afebrile, white count slightly improved. Imaging personally reviewed: CXR: slightly worsened opacities. Objective - Exam Narrative Exam: Physical Exam: Constitutional: sedated, on the vent Head, Ears, Nose: Normocephalic, atraumatic. External ears, nose normal Eyes: Conjunctivae/corneas clear. No icterus. No ptosis. Oral: trach Cardiovascular: S1, S2 + Respiratory: AE reduced, right-sided chest tube. GI: Soft, bowel sounds +, PEG + Musculoskeletal: No pedal edema, no cyanosis. Skin: No rash or abscess Hem/Lymphatic: No palpable cervical or supraclavicular nodes. No lymphangitis Psych: no agitation Neurological: sedated, on the vent, exam limited - Constitutional Vitals: Vital Signs Temp Pulse Resp BP Pulse Ox 98 F 88 14 151/70 100 06/25/21 12:00 06/25/21 13:30 06/25/21 13:30 06/25/21 13:30 06/25/21 13:30 Temperature -Last 24 Hours Temperature 98 F Temperature 99.3 F Temperature 99.2 F Temperature 99.3 F Temperature 99.2 F Temperature 99.2 F - Labs CBC & Chem 7: 06/25/21 Unknown 06/25/21 Unknown Labs: Abnormal lab results 06/24/21 06/24/21 06/24/21 Range/Units 16:47 21:49 23:24 WBC (4.5-11.0) K/mm3 RBC (3.65-5.03) M/mm3 Hgb (10.1-14.3) gm/dl Hct (30.3-42.9) % RDW (13.2-15.2) % Sodium (137-145) mmol/L Chloride (98-107) mmol/L BUN (7-17) mg/dL Glucose (65-100) mg/dL POC Glucose 201 H 132 H 170 H (70-105) mg/dL Calcium (8.4-10.2) mg/dL 06/25/21 06/25/21 06/25/21 Range/Units 05:30 09:00 11:29 WBC (4.5-11.0) K/mm3 RBC (3.65-5.03) M/mm3 Hgb 8.3 L (10.1-14.3) gm/dl Hct 27.0 L (30.3-42.9) % RDW (13.2-15.2) % Sodium (137-145) mmol/L Chloride (98-107) mmol/L BUN (7-17) mg/dL Glucose (65-100) mg/dL POC Glucose 151 H 189 H (70-105) mg/dL Calcium (8.4-10.2) mg/dL 06/25/21 06/25/21 06/25/21 Range/Units 14:24 Unknown Unknown WBC 16.5 H (4.5-11.0) K/mm3 RBC 2.90 L (3.65-5.03) M/mm3 Hgb 8.5 L 8.0 L (10.1-14.3) gm/dl Hct 27.5 L 23.8 L (30.3-42.9) % RDW 22.8 H (13.2-15.2) % Sodium 149 H (137-145) mmol/L Chloride 115.6 H (98-107) mmol/L BUN 28 H (7-17) mg/dL Glucose 157 H (65-100) mg/dL POC Glucose (70-105) mg/dL Calcium 8.0 L (8.4-10.2) mg/dL
--- NOTE | 2021-06-25 16:56 | Progress Note ---
Assessment and Plan Assessment and plan: This is a 76-year-old female with HTN, Coumadin use, dental caries, PVD s/p stenting to right leg, DM, arthritis, depression, gout and ? Pulmonary hypertension admitted with Jeremiah's angina s/p emergent cric with bleeding, right sided pneumothorax, supratherapeutic INR, hypernatremia, hyperchloremia, severe metabolic acidosis, hyperglycemia and hypocalcemia Neuro: Sedated, h/o depression, arthritis -Sedated fentanyl gtt -RASS goal 0 to -1 -Avoid delirium -Reorientation as needed -Maintain sleep-wake cycle -PT consulted; recommends LTAC Cardiac: S/p cardiac arrest, h/o htn, PVD s/p stenting Right leg -06/14 cardiac arrest with ROSC -S/p vasopressor support with Levophed and Fabian-Synephrine -Blood pressure monitoring per protocol -Antihypertensive regimen: Hydralazine 100 mg every 8 -06/13 Echocardiogram EF 65-70% Respiratory: Acute hypoxic respiratory failure, right pneumothorax -CCM consulted, appreciate recommendations -S/p emergent cricothyroidectomy with surgery with 8.00 ETT -s/p trach 06/19 with surgery (#[address]) -A.m. vent settings: PSV 8/6 -See RT notes for titration -A.m. ABG and CXR noted -Right chest tube replaced by surgery -CT to wall suction -Changed to larger bore on 06/13 -Planned for removal when weaned off ventilator -Postop CXR shows possible hydropneumothorax on right side -06/13 bronchoscopy showed possible blood clot in left lung which may be actin g as mucous plug however it was left in place due to possible bleeding inside lung if removed. -CXR post cardiac arrest shows clearance of mucous plug -06/16 CT chest shows moderate right pneumothorax with collapse of right upper lobe, right thoracostomy tube terminates at the collapsed right upper lobe, bilateral bronchus opacities compatible with infectious/inflammatory etiology, bilateral small pleural effusion, extensive subcutaneous air, small fluid collection in the anterior mediastinum is nonspecific -VAP bundle -SPO2 monitoring GI: Protein calorie malnutrition -24 hours +624 mL -CT 150 mL -PPI -BR: senna, colace -s/p TPN -Enteric consult for nutrition -S/p PEG : Acute kidney injury possibly secondary to vasomotor nephropathy, metabolic acidosis, hypokalemia, hypernatremia, hyperchloremia -Strict intake and output -Renally dose medications -Avoid nephrotoxic medications -Daily weights -Consider nephrology consult if worsens -S/p 7 L LR bolus -FeNa 0.067 -Replete potassium -Free water flush to 50 every 4 -Free water deficit 2.08 L ID: 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 dental caries -CT neck with contrast showed a significant right floor of mild swelling with extension into the submandibular and submental spaces, significant thickening and inflammation involving the right pharyngeal wall, with the parapharyngeal and retropharyngeal spaces at the level of the thyroid cartilage, epiglottis significantly swollen and so are the aryepiglottic folds resulting in significant airway narrowing at this level, no lymphadenopathy, symmetric submandibular and parathyroid glands, S few scattered caries but no periapical lucencies, nonspecific calcification along the right lateral oropharynx, no definite stone seen within the territory of the submandibular gland ducts, no suspicious rashes lesion -Infectious disease and general surgery consulted, appreciate recommendations -s/p cricothyroidectomy -Will follow surgery to direction and treatment of injury -Per surgery may have mucosal injury -Intra-Op findings include post pharyngeal swelling and bruising -Solu-Medrol 125 every 8 -tapering -Antibiotic therapy Zosyn -COVID-19 PCR negative -f/u blood culture -Monitor WBC and temperature curve -s/p 5L normal saline bolus in ED, 7 L LR bolus in ICU Heme: Coagulopathy, supratherapeutic INR, acute blood loss anemiq, possible component of hemorrhagic shock -Patient is on Coumadin at home -S/p 5 FFP, 8 PRBC, vitamin K x3 -Trend CBC -Presented with H/H of 10.3/34.6 and decreased to 6.7/22.4 -INR 8.18-> 4.55-> 2.1-> 1.23-> 1.16-> 1.31 -Monitor INR -Transfuse hemoglobin less than 7 -Serial H&H -Monitor for signs of bleeding -SCDs to BLE while in bed -Avoid chemical anticoagulation in setting of recent blood loss anemia Endo: Hyperglycemia, h/o DM, gout -S/p Lantus 25 units x 1 -Lantus subcu, titrate as needed -Avoid hypoglycemia -SSI -Accu-Cheks q. 6hr The high probability of a clinically significant, sudden or life threatening deterioration of the [multi] system(s) required my full and direct attention, intervention and personal management. The aggregate critical care time was [60] minutes. This time is in addition to time spent performing reported procedures but includes the following: [x] Data Review and interpretation [x] Patient assessment and monitoring of vital signs [x] Documentation [x] Medication orders and management Disposition Plan: icu Total Time Spent with Patient (Minutes): 60 History Interval history: This is a 76-year-old female with HTN, Coumadin use , dental caries, PVD s/p stenting right leg, DM, arthritis, depression, gout, and ? Pulmonary h ypertension who presented to emergency department on 06/11 with complaints of pain to mandible area and throat and swelling. Work-up in the emergency department included CT scan of the head and neck which showed findings consistent with Jeremiah's angina and anesthesia was called for intubation. Anesthesia intubation attempts were unsuccessful and surgery was consulted for cricothyroidotomy which was unsuccessful in the emergency department and patient was taken to the OR for tracheostomy. Intubation procedure was complicated by development of pneumothorax and excessive bleeding. Patient given multiple FFP's and vitamin K several times who attempts to decrease INR. Lab work showed leukocytosis, supratherapeutic INR, hypernatremia, hyperchloremia, severe metabolic acidosis, hyperglycemia, hypocalcemia. Patient was admitted to the hospitalist service with consults to [facility], general surgery, infectious disease. Hospital course to date: 06/12: Patient received additional 2 units FFP and 1 unit PRBC and vitamin K today. Overnight critical care placed a femoral CVL. Patient sedated on fentanyl, propofol and Versed. Currently on Fabian-Synephrine and Levophed for blood pressure maintenance. Remains amatory support. Infectious disease consulted. Started on sliding scale insulin and recultured. COVID-19 PCR pending. Surgery at bedside to place chest tube. 06/13: Patient was taken back to the OR today for exchange cricothyroid to possible tracheostomy. Patient returned with ETT. Chest tube was changed to larger size in the OR. Patient was hypotensive, tachycardic, hypoxic in the OR and received hespan, albumin and an A-line. Upon arrival patient was increased to max dose Levophed for hypotension which has resolved. Titrating vasopressors as tolerated. Remains on sedation with 3 agents. Apparently patient was not ventilating her left lung Intra-Op. Noted to have subcu hematoma and trauma to postpharyngeal area. Questionable decrease cardiac wall motion noted in OR-> will order echocardiogram to further investigate. Patient received additional PRBC today. DIC panel resulted as normal. Patient BUN/creatinine did increase as well as noted to have lactic acidosis. May need IV bolus in addition to pressor use. Likely bronc with Pulmicort today as repeat CXR showed right possible pneumo hydrothorax 06/14: Antibiotics changed to Zosyn per ID, surgical packing removed from neck and makeshift Faith drain placed by surgery and old chronic thyroidectomy site. CXR was completed and RN heard gurgling and blood was noted on dressing. ST elevation noted on bedside monitor and patient was hypoxic. FiO2 increased to 100%. However shortly after patient lost her pulse and ACLS was initiated. Patient received 3 rounds of epinephrine and ROSC was achieved. Stat portable CXR showed resolution of lower lobe collapse on the left and stable right-sided chest tube with hemothorax. CCM updated family. Patient H/H noted to be 7.2/23.2 and did RN to transfuse prepared PRBC which [facility] blood bank. Bedside echo completed. 06/15: Off sedation, intermittently follows commands, remains on the prednisone. Surgery will reassess airway on Thursday to see if any further support is required. Urine studies indicate prerenal, given IV bolus and started on Clinimix today. 06/16: Patient restarted on fentanyl drip due to hypertension. Given more LR due to CR improvement post LR yesterday. Patient started on Lantus subcu after given one-time dose of Lantus. PICC placed today. Patient had a CT chest today which showed no mediasinusitis but extensive subcutaneous air. 06/17: General Surgery recommended transferring patient to a ENT specialized facility. Placed a call to [facility], spoke with the instructor decorating, Dr. Duckworth, who stated that a transfer is possible as long their ENT team accept the patient. Awaiting on a final response. Continue current supportive measures. Basal insulin adjusted for hyperglycemia. 06/18: JEREMIAS overnight. Hypertensive this am, PRN Hydralazine for SBP greater than 160. Remains hyperglycemic, patient is on IV steroids and TPN, basal insulin adjusted. Plan for possible transfer to [place] once an ICU bed is available. 06/19: Low SPO2 and hypotension overnight required Levophed for a short time. Overnight CXR noted with no significant changed. Patient is stable this am and off pressors. Plan for possible Trach and PEG today by General Surgery. 06/20: s/p Trach and PEG. Some bleeding overnight s/p X1 dose of Vitamin K. The bleeding resolved this am, H&H remains stable. Attempted a SAT this am, patient went into SVT, HR in the 160-170 which resolved once sedations were resumed. Plan is to continue to sedation for now, attempt to wean off propofol for a RASS goal of 0 to -2. D/C CCM plan is to wean off sedation as tolerated for PST for possible extubation. Okay to use PEGT per Gen. Surgery. Nutrition consulted for TF management, TF to start tonight once current TPN bag is completed. BG remains elevated, continue current SSI and basal for now, will start tapering IV steroids tomorrow. FWF added for hyponatremia. Wean off pressors as tolerated for MAP above 65. Possible transfer to [facility] for ENT eval. 06/21: Overnight events and CXR noted. Worsen subcutaneous emphysema and Rt. Pneumo. CT remains in place and intact to cont. wall suction. Patient remains hemodynamically stable, still on low vent setting. will continue to monitor for now. Patient is also tolerating enteral nutrition via PEGT, TPN D/benjamín. H&H is also trending down, no s/s of any active bleeding. Will continue to trend H&H, transfuse if hgb is less than 7. FWF increased for hypernatremia. Still waiting on possible transfer to [place]. 06/22: JEREMIAS overnight. Subcutaneous emphysema is unchanged. CXR with mild improvement. Patient remains hemodynamically stable. Hydralazine added Q8hr for HTN. FWF increased for hypernatremia. Awaiting transfer to [place] for ENT eval. 06/23: Over 70cc from CT overnight, subcutaneous emphysema with mild improvement. Patient is also tolerating PST this am. Repeat CXR in the am. Patient is still hypertensive, will added norvasc for better control. Continue FWF for hypernatremia and electrolytes replacement as needed, repeat labs in the am. Darin in wbcs this am, patient remains afebrile and on IV Abx, most likely due to IV steroids continue to monitor. Continue to taper IV steroids. Hyperglycemia is also improving, continue current SSI and basal for now. 06/24: Patient is anemic today and transfused 1 unit PRBC, hypokalemia and hypophosphatemia repleted, will continue every 6 H/H for now to monitor for bleeding, steroid taper continues, still awaiting transfer to [place], PT/OT consulted, CCM to talk to case management regarding LTAC transfer. 06/25: Patient responded appropriately to yesterday, placed on pressure support trial today. Per CCM hopefully T-piece in the next 24 to 48 hours and will continue decrease steroids further on . Lujan catheter removed today. Hospitalist Physical - Constitutional Vitals: Temp Pulse Resp BP Pulse Ox 98 F 88 14 151/70 100 06/25/21 12:00 06/25/21 13:30 06/25/21 13:30 06/25/21 13:30 06/25/21 13:30 General appearance: Present: no acute distress, obese - EENT Eyes: Present: PERRL, EOM intact ENT: hearing intact, poor dentition - Neck Neck: Present: normal ROM - Respiratory Respiratory effort: normal Respiratory: bilateral: CTA - Cardiovascular Rhythm: regular Heart Sounds: Present: S1 & S2. Absent: systolic murmur, diastolic murmur - Extremities Extremities: no ischemia, pulses intact, pulses symmetrical, No edema, normal temperature, normal color Peripheral Pulses: within normal limits - Abdominal General gastrointestinal: soft, non-tender, non-distended, normal bowel sounds - Integumentary Integumentary: Present: warm, dry - Psychiatric Psychiatric: appropriate mood/affect, cooperative - Neurologic Neurologic: CNII-XII intact, no focal deficits, moves all extremities - Allied Health Allied health notes reviewed: nursing, RT, social work HEART Score - HEART Score Troponin: Troponin T < 0.010 ng/mL (0.00-0.029) 06/11/21 23:21 Results - Labs CBC & Chem 7: 06/25/21 Unknown 06/25/21 Unknown Labs: Laboratory Last Values WBC 16.5 K/mm3 (4.5-11.0) H 06/25/21 Unknown RBC 2.90 M/mm3 (3.65-5.03) L 06/25/21 Unknown Hgb 8.0 gm/dl (10.1-14.3) L 06/25/21 Unknown Hct 23.8 % (30.3-42.9) L 06/25/21 Unknown MCV 82 fl (79-97) 06/25/21 Unknown MCH 28 pg (28-32) 06/25/21 Unknown MCHC 34 % (30-34) 06/25/21 Unknown RDW 22.8 % (13.2-15.2) H 06/25/21 Unknown Plt Count 241 K/mm3 (140-440) 06/25/21 Unknown Lymph % (Auto) 3.5 % (13.4-35.0) L 06/21/21 04:42 Cook % (Auto) 11.7 % (0.0-7.3) H 06/21/21 04:42 Eos % (Auto) 0.0 % (0.0-4.3) 06/21/21 04:42 Baso % (Auto) 0.1 % (0.0-1.8) 06/21/21 04:42 Lymph # (Auto) 0.5 K/mm3 (1.2-5.4) L 06/21/21 04:42 Cook # (Auto) 1.8 K/mm3 (0.0-0.8) H 06/21/21 04:42 Eos # (Auto) 0.0 K/mm3 (0.0-0.4) 06/21/21 04:42 Baso # (Auto) 0.0 K/mm3 (0.0-0.1) 06/21/21 04:42 Add Manual Diff Complete 06/13/21 Unknown Total Counted 100 06/13/21 Unknown Seg Neutrophils % 84.7 % (40.0-70.0) H 06/21/21 04:42 Seg Neuts % (Manual) 88.0 % (40.0-70.0) H 06/13/21 Unknown Band Neutrophils % 2.0 % 06/13/21 Unknown Lymphocytes % (Manual) 4.0 % (13.4-35.0) L 06/13/21 Unknown Reactive Lymphs % (Man) 0 % 06/13/21 Unknown Monocytes % (Manual) 6.0 % (0.0-7.3) 06/13/21 Unknown Eosinophils % (Manual) 0 % (0.0-4.3) 06/13/21 Unknown Basophils % (Manual) 0 % (0.0-1.8) 06/13/21 Unknown Metamyelocytes % 0 % 06/13/21 Unknown Myelocytes % 0 % 06/13/21 Unknown Promyelocytes % 0 % 06/13/21 Unknown Blast Cells % 0 % 06/13/21 Unknown Nucleated RBC % Not Reportable 06/13/21 Unknown Seg Neutrophils # 12.8 K/mm3 (1.8-7.7) H 06/21/21 04:42 Seg Neutrophils # Man 19.8 K/mm3 (1.8-7.7) H 06/13/21 Unknown Band Neutrophils # 0.5 K/mm3 06/13/21 Unknown Lymphocytes # (Manual) 0.9 K/mm3 (1.2-5.4) L 06/13/21 Unknown Abs React Lymphs (Man) 0.0 K/mm3 06/13/21 Unknown Monocytes # (Manual) 1.4 K/mm3 (0.0-0.8) H 06/13/21 Unknown Eosinophils # (Manual) 0.0 K/mm3 (0.0-0.4) 06/13/21 Unknown Basophils # (Manual) 0.0 K/mm3 (0.0-0.1) 06/13/21 Unknown Metamyelocytes # 0.0 K/mm3 06/13/21 Unknown Myelocytes # 0.0 K/mm3 06/13/21 Unknown Promyelocytes # 0.0 K/mm3 06/13/21 Unknown Blast Cells # 0.0 K/mm3 06/13/21 Unknown WBC Morphology Not Reportable 06/13/21 Unknown Hypersegmented Neuts Not Reportable 06/13/21 Unknown Hyposegmented Neuts Not Reportable 06/13/21 Unknown Hypogranular Neuts Not Reportable 06/13/21 Unknown Smudge Cells Not Reportable 06/13/21 Unknown Toxic Granulation 2+ 06/13/21 Unknown Toxic Vacuolation Not Reportable 06/13/21 Unknown Dohle Bodies Not Reportable 06/13/21 Unknown Pelger-Huet Anomaly Not Reportable 06/13/21 Unknown Dennis Rods Not Reportable 06/13/21 Unknown Platelet Estimate Consistent w auto 06/13/21 Unknown Clumped Platelets Not Reportable 06/13/21 Unknown Plt Clumps, EDTA Not Reportable 06/13/21 Unknown Large Platelets Not Reportable 06/13/21 Unknown Giant Platelets Not Reportable 06/13/21 Unknown Platelet Satelliting Not Reportable 06/13/21 Unknown Plt Morphology Comment Not Reportable 06/13/21 Unknown RBC Morphology Not Reportable 06/13/21 Unknown Dimorphic RBCs Not Reportable 06/13/21 Unknown Polychromasia Few 06/13/21 Unknown Hypochromasia 2+ 06/13/21 Unknown Poikilocytosis Not Reportable 06/13/21 Unknown Anisocytosis 1+ 06/13/21 Unknown Microcytosis Not Reportable 06/13/21 Unknown Macrocytosis Not Reportable 06/13/21 Unknown Spherocytes Not Reportable 06/13/21 Unknown Pappenheimer Bodies Not Reportable 06/13/21 Unknown Sickle Cells Not Reportable 06/13/21 Unknown Target Cells Not Reportable 06/13/21 Unknown Tear Drop Cells Not Reportable 06/13/21 Unknown Ovalocytes Not Reportable 06/13/21 Unknown Stomatocytes Few 06/12/21 01:45 Helmet Cells Not Reportable 06/13/21 Unknown Salamanca-Linn Bodies Not Reportable 06/13/21 Unknown [place] Rings Not Reportable 06/13/21 Unknown Nelsy Cells Not Reportable 06/13/21 Unknown Bite Cells Not Reportable 06/13/21 Unknown Crenated Cell Not Reportable 06/13/21 Unknown Elliptocytes Not Reportable 06/13/21 Unknown Acanthocytes (Spur) Not Reportable 06/13/21 Unknown Rouleaux Not Reportable 06/13/21 Unknown Hemoglobin C Crystals Not Reportable 06/13/21 Unknown Schistocytes Not Reportable 06/13/21 Unknown Malaria parasites Not Reportable 06/13/21 Unknown Edin Bodies Not Reportable 06/13/21 Unknown Hem Pathologist Commnt No 06/13/21 Unknown PT 18.3 Sec. (12.2-14.9) H 06/20/21 04:33 INR 1.37 (0.87-1.13) H 06/20/21 04:33 APTT 26.4 Sec. (24.2-36.6) 06/13/21 Unknown Fibrinogen 546 mg/dl (211-480) H 06/13/21 Unknown D-Dimer 1244.63 ng/mlDDU (0-234) H 06/13/21 Unknown ABG pH 7.426 pH Units (7.350-7.450) 06/21/21 04:20 POC ABG pCO2 25.6 mmHg (32.0-48.0) L 06/13/21 04:31 ABG pCO2 35.1 mm Hg 06/21/21 04:20 POC ABG pO2 138.8 mmHg (83-108) H 06/13/21 04:31 ABG pO2 98.5 mm Hg (80.0-90.0) H 06/21/21 04:20 POC ABG HCO3 21.4 06/13/21 04:31 ABG HCO3 22.6 mmol/L (20.0-26.0) 06/21/21 04:20 ABG O2 Saturation 97.7 % (95.0-99.0) 06/21/21 04:20 ABG O2 Content 9.9 (0.0-44) 06/21/21 04:20 POC ABG Base Excess -0.7 06/13/21 04:31 ABG Base Excess -1.6 mmol/L (-2.0-3.0) 06/21/21 04:20 ABG Hemoglobin 7.2 gm/dl (12.0-16.0) L 06/21/21 04:20 ABG Oxyhemoglobin 98.1 (94-98) H 06/13/21 04:31 ABG Carboxyhemoglobin 1.7 % (0.0-5.0) 06/21/21 04:20 ABG Methemoglobin 0.5 % (0.0-1.5) 06/21/21 04:20 Oxyhemoglobin 95.5 % (95.0-99.0) 06/21/21 04:20 Carboxyhemoglobin 0.8 (0.5-1.5) 06/13/21 04:31 FiO2 30 % 06/21/21 04:20 FiO2 % 40.0 06/13/21 04:31 Sodium 149 mmol/L (137-145) H 06/25/21 Unknown Potassium 3.6 mmol/L (3.6-5.0) 06/25/21 Unknown Chloride 115.6 mmol/L (98-107) H 06/25/21 Unknown Carbon Dioxide 23 mmol/L (22-30) 06/25/21 Unknown Anion Gap 14 mmol/L 06/25/21 Unknown BUN 28 mg/dL (7-17) H 06/25/21 Unknown Creatinine 0.9 mg/dL (0.6-1.2) 06/25/21 Unknown Estimated GFR > 60 ml/min 06/25/21 Unknown BUN/Creatinine Ratio 31 % 06/25/21 Unknown Glucose 157 mg/dL (65-100) H 06/25/21 Unknown POC Glucose 189 mg/dL (70-105) H 06/25/21 11:29 Lactic Acid 5.30 mmol/L (0.7-2.0) H* 06/13/21 15:45 Calcium 8.0 mg/dL (8.4-10.2) L 06/25/21 Unknown Phosphorus 2.70 mg/dL (2.5-4.5) 06/25/21 Unknown Magnesium 2.20 mg/dL (1.7-2.3) 06/25/21 Unknown Total Bilirubin 0.40 mg/dL (0.1-1.2) 06/15/21 03:56 AST 64 units/L (5-40) H 06/15/21 03:56 ALT 106 units/L (7-56) H 06/15/21 03:56 Alkaline Phosphatase 55 units/L (35-129) 06/15/21 03:56 Troponin T < 0.010 ng/mL (0.00-0.029) 06/11/21 23:21 C-Reactive Protein 3.30 mg/dL (0.00-1.30) H 06/16/21 04:32 Total Protein 5.1 g/dL (6.3-8.2) L 06/15/21 03:56 Albumin 2.9 g/dL (3.9-5) L 06/15/21 03:56 Albumin/Globulin Ratio 1.3 % 06/15/21 03:56 Triglycerides 254 mg/dL (2-149) H 06/21/21 04:42 Urine Color Yellow (Yellow) 06/12/21 17:00 Urine Turbidity Clear (Clear) 06/12/21 17:00 Urine pH 5.0 (5.0-7.0) 06/12/21 17:00 Ur Specific [place] 1.035 (1.003-1.030) H 06/12/21 17:00 Urine Protein 30 mg/dl mg/dL (Negative) 06/12/21 17:00 Urine Glucose (UA) 50 mg/dL (Negative) 06/12/21 17:00 Urine Ketones Tr mg/dL (Negative) 06/12/21 17:00 Urine Blood Neg (Negative) 06/12/21 17:00 Urine Nitrite Neg (Negative) 06/12/21 17:00 Urine Bilirubin Neg (Negative) 06/12/21 17:00 Urine Urobilinogen < 2.0 mg/dL (<2.0) 06/12/21 17:00 Ur Leukocyte Esterase Neg (Negative) 06/12/21 17:00 Urine WBC (Auto) < 1.0 /HPF (0.0-6.0) 06/12/21 17:00 Urine RBC (Auto) < 1.0 /HPF (0.0-6.0) 06/12/21 17:00 Urine Creatinine 81.1 mg/dL (0.1-20.0) H 06/15/21 10:40 Urine Sodium 42 mmol/L 06/15/21 10:40 Coronavirus (PCR) Negative (Negative) 06/12/21 09:50 Blood Type O POSITIVE 06/24/21 06:40 Antibody Screen Negative 06/24/21 06:40 Crossmatch See Detail 06/24/21 06:40 Lujan/IV: Voiding Method Indwelling Catheter Active Medications - Current Medications Current Medications: Generic Name Dose Route Start Last Admin Trade Name Freq PRN Reason Stop Dose Admin Amlodipine Besylate 5 mg 06/23/21 10:00 06/25/21 09:13 Amlodipine 5 Mg Tab PO 5 mg QDAY JOLENE Administration Lipase/Protease/Amylase 1 each 06/19/21 19:20 Lipase 10,500/Protease 25,000/Amylase 43,750 (Units) Dr Melgar FEEDTUBE PRN PRN For Clogged Feeding Tube Atorvastatin Calcium 20 mg 06/22/21 22:00 06/24/21 21:09 Atorvastatin 20 Mg Tab PO 20 mg QHS JOLENE Administration Docusate Sodium 100 mg 06/20/21 10:00 06/25/21 09:13 Docusate Sodium 100 Mg/10 Ml Oral Liqd PO 100 mg BID JOLENE Administration Famotidine 20 mg 06/24/21 22:00 06/25/21 09:13 Famotidine 20 Mg Tab FEEDTUBE 20 mg BID JOLENE Administration Fentanyl 50 mcg 06/20/21 12:00 06/25/21 09:12 Fentanyl 100 Mcg/2 Ml Inj IV 50 mcg Q2HR PRN Administration For CPOT greater than 3 Fentanyl 50 mcg 06/24/21 21:50 Fentanyl 100 Mcg/2 Ml Inj IV Q10MIN PRN ANALGESIA Hydralazine HCl 100 mg 06/22/21 19:00 06/25/21 13:03 Hydralazine 100 Mg Tab FEEDTUBE 100 mg Q8HR JOLENE Administration Hydromorphone HCl 0.5 mg 06/11/21 20:42 06/22/21 22:18 Hydromorphone 1 Mg/1 Ml Inj IV 0.5 mg Q3H PRN Administration Pain , Severe (7-10) NORepinephrine/NS 8 MG-250 ML 8 mg in 250 mls @ 3.75 mls/hr 06/12/21 02:00 06/20/21 12:13 Norepinephrine/Ns 8 Mg-250 Ml (Double Conc) IV 0 mcg/min TITRATE JOLENE 0 mls/hr Titration Protocol 2 MCG/MIN Fentanyl Citrate 2,000 mcg in 100 mls @ 5.466 mls/hr 06/24/21 22:00 06/25/21 09:30 Fentanyl Drip Premix IV 0 mcg/kg/hr TITR JOLENE 0 mls/hr Titration Protocol 1 MCG/KG/HR Piperacillin Sod/Tazobactam Sod 4.5 gm in 100 mls @ 200 mls/hr 06/25/21 12:00 06/25/21 11:44 Zosyn/Ns 4.5gm/100ml IV 200 mls/hr Q6HR JOLENE Administration Protocol Insulin Glargine 25 units 06/19/21 10:00 06/25/21 09:12 Insulin Glargine 100 Units/Ml SUB-Q 25 units BID JOLENE Administration Insulin Human Lispro 0 unit 06/12/21 12:00 06/25/21 11:44 Insulin Lispro 100 Unit/Ml SUB-Q 3 unit Q6HR JOLENE Administration Protocol Labetalol HCl 10 mg 06/21/21 18:00 06/23/21 00:22 Labetalol 20 Mg/4 Ml Inj IV 10 mg Q4HR PRN Administration Hypertension Methylprednisolone Sodium Succinate 40 mg 06/23/21 10:00 06/25/21 09:12 Methylprednisolone Sod Succinate 40 Mg/1 Ml Inj IV 40 mg Q12HR JOLENE Administration Metoclopramide HCl 10 mg 06/11/21 20:42 Metoclopramide 10 Mg/2 Ml Inj IV Q6H PRN Nausea And Vomiting Ondansetron HCl 4 mg 06/11/21 20:42 Ondansetron 4 Mg/2 Ml Inj IV Q3H PRN Nausea And Vomiting Senna 17.6 mg 06/20/21 10:00 06/25/21 09:13 Sennosides Oral Liqd 8.8 Mg/5 Ml Oral Liqd PO 17.6 mg Q12HR JOLENE Administration Simple Syrup 15 ml 06/19/21 19:20 Simple Syrup 15 Ml FEEDTUBE PRN PRN Hypoglycemia Simple Syrup 30 ml 06/19/21 19:20 Simple Syrup 15 Ml FEEDTUBE PRN PRN Hypoglycemia Sodium Bicarbonate 325 mg 06/19/21 19:20 Sodium Bicarbonate 325 Mg Tab FEEDTUBE PRN PRN For Clogged Feeding Tube Sodium Chloride 10 ml 06/11/21 22:00 06/25/21 09:13 Sodium Chloride 0.9% 10 Ml Flush Syringe IV 10 ml BID JOLENE Administration Sodium Chloride 10 ml 06/11/21 20:42 Sodium Chloride 0.9% 10 Ml Flush Syringe IV PRN PRN LINE FLUSH Nutrition/Malnutrition Assess - Dietary Evaluation Nutrition/Malnutrition Findings: Nutrition Notes Start: 06/16/21 12: 10 Freq: Status: Active Protocol: Document 06/23/21 09:54 CANDIDO (Rec: 06/23/21 10:20 CANDIDO [id number]) Nutrition Notes Initial or Follow up Reassessment Current Diagnosis Diabetes,Sepsis,Hypertension, Respiratory Failure Other Pertinent Diagnosis Jeremiah's Angina, (R) Pneumothorax, Coagulopathy, s/ pCardiac Arrest, Gout... Current Diet TF-Vital AF 1.2 Quan @ 50 ml/hr (since D 06/21). Labs/Tests 06/22: Na 151, Cl 118.7, BUN 57, Glu 238, Ca 8.0, Mg 2.7. Pertinent Medications 06/23: Insulin, others nutritionally unremarkable. Height 5 ft 8 in Weight 109.316 kg [place] Body Weight (kg) 63.63 BMI 36.6 Weight change and time frame No body weight change reported . Weight Status Obese Subjective/Other Information RD consult for write/manage TF . TF continues as prescribed. Pt continues on Mechanical Ventilation, but is awake and responsive. Pt awaiting transfer to tertiary center. Pt continues with hypernatremia. Percent of energy/protein needs met: Prescribed Vital AF 1.2 Quan @ 50 ml/hr provides for energy/ protein needs (1,440 Kcal/90 g ) during LOS; 105% Kcal and 71 % AA. Burn Absent Trauma Absent GI Symptoms Other Difficulty In Swallowing,Chewing Food Allergy No Skin Integrity/Comment Surgical wounds. Current % PO Other Minimum of two criteria No #1 Nutrition Diagnosis Inadequate oral intake Diagnosis Progress(for reassessment Continues documentation) Is patient on ventilator? Yes Is Patient Ambulatory and/or Out of Bed No REE-([facility]-confined to bed) 3538.312 Calculation Used for Recommendations 65-70% energy needs Additional Notes Energy needs: 1280-1379kcal/ day Pro needs 2g/kg IBW: 127g/day Fluid needs 1ml/kcal Nutrition Intervention Nutrition Support: Continue Vital AF 1.2 Quan @ 50 ml/hr. Flush: 200 ml water Q 4 hr. When hypernatermia resolved, provide 80 ml water flush Q 4 hr. Kcal 1,440 Protein (gm) 90 Carbohydrates (gm) 133 Fat (gm) 65 Fluid (mL) 973 Fiber (gm) 6 % RDI: 105% Kcal; 71% AA. Goal #1 Provide at least 75% of energy /protein needs through Enteral Feeding during LOS. Goal #2 Maintain body weight within +/ -3% of admission body weight during LOS. Follow-Up By: 06/27/21 Additional Comments Continue monitoring Mechanical Ventilation, Na/Flush, TF tolerance and BM.
[2021-06-26] MEDS: INSULIN LISPRO 100 UNIT/ML SUB-Q SCH ×7 (00:54→17:39)
[2021-06-26] MEDS: fentaNYL 100 MCG/2 ML INJ IV PRN (01:25)
[2021-06-26] MEDS: PIPERACIL/TAZOBACTA 4.5/NS 100 4.5 GM/100 ML VIAL IV SCH ×4 (01:43→17:38)
[2021-06-26] MEDS: FREE WATER PO SCH ×7 (02:45→22:10)
[2021-06-26] MEDS: hydrALAZINE 100 MG TAB FEEDTUBE SCH ×3 (05:24→22:08)
[2021-06-26] MEDS: HYDROmorphone 1 MG/1 ML INJ IV PRN ×3 (05:25→22:08)
[2021-06-26 05:34] LABS: Hematocrit 25.1 % (30.3-42.9); Mean Corpuscular HGB Conc 32 % (30-34); Mean Corpuscular Volume 83 fl (79-97); Platelet Count 274 K/mm3 (140-440); Red Blood Count 3.03 M/mm3 (3.65-5.03)
[2021-06-26 05:37] LABS: Red Cell Distribution Width 23.2 % (13.2-15.2)
[2021-06-26 05:54] LABS: BUN/Creatinine Ratio 32; Blood Urea Nitrogen 29 mg/dL (7-17); Calcium 8.2 mg/dL (8.4-10.2); Hemolysis Index 0
--- NOTE | 2021-06-26 07:29 | Progress Note ---
Assessment and Plan Patient on the ventilator through tracheostomy. She has a #[address] She is much more awake today and on previous days. Vital signs appear stable. Hemoglobin was notably low yesterday. After 1 unit of blood is hemoglobin of 8 hematocrit 23. Nursing is not visualizing any external signs of bleeding. Chest x-rays are showing improvement of right-sided pneumothorax. Trial of T- piece anticipated today. As the patient is weaned off of the ventilator the chest tube will be addressed and and removed. Transfer to [place] for ENT evaluation is now into the second week of waiting. Patient may well be cared for during this admission discharged and then evaluated as an outpatient. Subjective Date of service: 06/26/21 Patient Reports: Positive: no new complaints Narrative: Patient much more awake making eye contact communicating responding. Objective Vital Signs - 12hr 06/25/21 06/25/21 06/25/21 19:30 20:00 20:30 Temperature 98.5 F Pulse Rate 98 H 104 H 90 Pulse Rate [ 113 H From Monitor] Respiratory 34 H 36 H 18 Rate Blood Pressure 150/71 150/68 161/78 O2 Sat by Pulse 98 100 98 Oximetry O2 Sat by Pulse Oximetry [ Assessment] 06/25/21 06/25/21 06/25/21 21:00 21:30 22:00 Temperature Pulse Rate 95 H 109 H 78 Pulse Rate [ From Monitor] Respiratory 19 17 18 Rate Blood Pressure 156/81 156/81 156/81 O2 Sat by Pulse 98 99 98 Oximetry O2 Sat by Pulse Oximetry [ Assessment] 06/25/21 06/25/21 06/25/21 22:30 23:00 23:30 Temperature Pulse Rate 74 84 78 Pulse Rate [ From Monitor] Respiratory 18 15 17 Rate Blood Pressure 156/81 156/81 156/81 O2 Sat by Pulse 100 99 99 Oximetry O2 Sat by Pulse Oximetry [ Assessment] 06/26/21 06/26/21 06/26/21 00:00 00:30 00:31 Temperature Pulse Rate 81 84 99 H Pulse Rate [ 113 H From Monitor] Respiratory 13 15 Rate Blood Pressure 155/68 152/71 142/65 O2 Sat by Pulse 95 98 99 Oximetry O2 Sat by Pulse Oximetry [ Assessment] 06/26/21 06/26/21 06/26/21 01:00 01:30 02:00 Temperature Pulse Rate 102 H 99 H 90 Pulse Rate [ From Monitor] Respiratory 18 36 H 18 Rate Blood Pressure 153/68 171/80 176/68 O2 Sat by Pulse 100 97 97 Oximetry O2 Sat by Pulse Oximetry [ Assessment] 06/26/21 06/26/21 06/26/21 02:30 03:00 03:30 Temperature Pulse Rate 96 H 103 H 87 Pulse Rate [ From Monitor] Respiratory 17 18 18 Rate Blood Pressure 173/71 166/74 147/72 O2 Sat by Pulse 100 100 93 Oximetry O2 Sat by Pulse Oximetry [ Assessment] 06/26/21 06/26/21 06/26/21 04:00 04:07 04:30 Temperature 98.0 F Pulse Rate 85 96 H Pulse Rate [ 113 H From Monitor] Respiratory 18 19 Rate Blood Pressure 148/68 167/82 O2 Sat by Pulse 96 99 Oximetry O2 Sat by Pulse 100 Oximetry [ Assessment] 06/26/21 06/26/21 06/26/21 05:00 05:30 06:00 Temperature Pulse Rate 84 82 81 Pulse Rate [ From Monitor] Respiratory 29 H 18 15 Rate Blood Pressure 153/80 134/80 140/77 O2 Sat by Pulse 100 96 99 Oximetry O2 Sat by Pulse Oximetry [ Assessment] 06/26/21 06/26/21 06/26/21 06:30 07:00 07:18 Temperature 98.4 F Pulse Rate 78 84 Pulse Rate [ From Monitor] Respiratory 19 18 Rate Blood Pressure 139/73 151/65 O2 Sat by Pulse 98 100 Oximetry O2 Sat by Pulse Oximetry [ Assessment] - Labs 06/26/21 05:29 06/26/21 05:29 Diabetes panel 06/26/21 Range/Units 05:29 Sodium 150 H (137-145) mmol/L Potassium 3.8 (3.6-5.0) mmol/L Chloride 114.8 H (98-107) mmol/L Carbon Dioxide 24 (22-30) mmol/L BUN 29 H (7-17) mg/dL Creatinine 0.9 (0.6-1.2) mg/dL Glucose 229 H (65-100) mg/dL Calcium 8.2 L (8.4-10.2) mg/dL Calcium panel 06/26/21 Range/Units 05:29 Calcium 8.2 L (8.4-10.2) mg/dL Pituitary panel 06/26/21 Range/Units 05:29 Sodium 150 H (137-145) mmol/L Potassium 3.8 (3.6-5.0) mmol/L Chloride 114.8 H (98-107) mmol/L Carbon Dioxide 24 (22-30) mmol/L BUN 29 H (7-17) mg/dL Creatinine 0.9 (0.6-1.2) mg/dL Glucose 229 H (65-100) mg/dL Calcium 8.2 L (8.4-10.2) mg/dL Adrenal panel 06/26/21 Range/Units 05:29 Sodium 150 H (137-145) mmol/L Potassium 3.8 (3.6-5.0) mmol/L Chloride 114.8 H (98-107) mmol/L Carbon Dioxide 24 (22-30) mmol/L BUN 29 H (7-17) mg/dL Creatinine 0.9 (0.6-1.2) mg/dL Glucose 229 H (65-100) mg/dL Calcium 8.2 L (8.4-10.2) mg/dL
[2021-06-26] MEDS: methylPREDNISolone Sod Succinate 40 MG/1 ML INJ IV SCH ×2 (10:27→22:07)
[2021-06-26] MEDS: FAMOTIDINE 20 MG TAB FEEDTUBE SCH ×2 (10:27→22:08)
[2021-06-26] MEDS: INSULIN GLARGINE 100 UNITS/ML SUB-Q SCH ×2 (10:27→22:08)
[2021-06-26] MEDS: amLODIPine 5 MG TAB PO SCH (10:27)
[2021-06-26] MEDS: DOCUSATE SODIUM 100 MG/10 ML ORAL LIQD PO SCH ×2 (10:28→22:08)
[2021-06-26] MEDS: SENNOSIDES ORAL LIQD 8.8 MG/5 ML ORAL LIQD PO SCH ×2 (10:28→22:30)
--- NOTE | 2021-06-26 13:39 | Progress Note ---
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 06/26/21: T-piece today. If off the vent, agree with surgery and removal of chest tube as subq emphysema is improving as well. PT has seen suggested LTACH, however if we are able to wean she may need correction/rehab. Prognosis continues to improve. 06/25/21: Continue PSV as tolerated. Hopeful T-piece in the next 24-48 hours. Will drop steroids down further on . Can switch to daily and even change to oral. PT/OT consult, and follow up recs. May need LTACH vs rehab vs both. Continue to follow. 06/24/21: Daily PSV trials. Maybe ready for T-piece sson. Continue to wean steroids to off. IMS changed to 40q12 which is fine. Continue chest tube until off vent. Still on list for [facility] but will discuss with CM about checking into LTACH as patient will need rehab. PT/OT consult. 06/21/21: Continue current level of sedation. Chest tube does not have air leak but there is clear evidence of a PTX on right. Stripped tube at bedside and will repeat CXR in the morning. Hold on weaning sedation for now and hold on P SV trials. May need second chest tube vs vats if PTX worsens or does not resolve. Patient still on list for [facility], hopeful they will have a bed soon. Drop steroids to 40q8 starting Thursday. Monitor renal function, likely will improve. Needs more free water. Prognosis still remains guarded. 06/20/21: Restart some sedation. At least pain and maybe diprovan. Would like to wake patient up at some point and attempt some PSV trials. Labs are off this am. Large bump in white count but no fever, also no diff drawn. Could be error vs steroid related but this is in just 24 hours. Will repeat tomorrow. If spikes a temp neves culture as well. Small bump in Cr but still in normal range. Will watch. Now that peg in place, tube feeds and free water flushes. Still on list for [facility]. Patient has been steroids greater than 7 days so will have to wean. Can drop to 60q8 starting tomorrow. Prognosis still remains guarded. 06/19/21: surgery to attempt trach and peg today. Still will ask to keep on transfer list for [facility] as her other issues still need to be addressed. If able to place peg, can stop clinimix, give free water and start tube feeds. Prognosis remains guarded. pH better with drop in tidal volume. 06/18/21: [facility] has agreed to accept but no ICU beds available at this time. Spoke with Dr. Vasquez yesterday and Dr. Patricia spoke with ENT there. Spoke with RT this am and patient did have a leak when cuff let down and her tidal volumes dropped to below 100. Patient remains on abx and steriods. Will consider lightening sedation tomorrow and seeing how patient does if cuff leak persists. Dropped tidal volumes to 450. Continue PPN for now. 06/17/21: spoke with surgery and they feel transfer is reasonable. I have reached out to [facility] and [facility] has spoken with someone from [place]. Await to hear back from them. Continue supportive measures and adequate sedation for pain control. No PSV trials as of yet. Blood sugar control, increase lantus. Most likely secondary to steroids. Continue abx therapy. Guarded prognosis. 06/16/21: Renal function improved with fluids. IMS to give more fluids (LR) today which I agree with. FeNa is =0.7. Should be fluid responsive. Continue clinimix. Needs long acting insulin. Agree with lantus. Asked nursing to increase sedation now that we know that patient's mental status is stable. Picc today. Air leak test vs Neck CT on tomorrow. 06/15/21: Hopeful with worsening renal function ( likely from code on yesterday) that sedatives are just lingering from that. Still making good urine but output has fallen off. Will send urine sodium and urine cr to check Fena. Most likely this is prerenal. ordered renal ultrasound as well. Continue abx and steroids. Will start clinimix today. This should help with the free water piece. Will give another liter bolus of LR right now. Keep sedation off for now. Guarded prognosis. 06/14/21: Will discuss with surgery future plans. They have ordered steroids to help with inflammation and abx continue. All others appears stable and no acute evidence of bleeding at this time. Follow up surgery recs if any new ones. Guarded prognosis. 06/13/21: Patient to back to OR today. BLood transfusion. Will send DIC panel and may need to given cryo if over 6 units of PRBC's given. Patient will likely need trach and peg as we need to address nutrition. Chest tube placed, large bore now. Patient now with right sided effusion. Hemothorax???. Will continue to monitor output. Needs picc line as femoral should come out soon. Continue pressors. Continue sedation for pain control and comfort. Guarded prognosis. Surgery comfortable with neck and current situation so they have not request transfer. 1. Placed right femoral central line. pressors can run through this. 2. Repeat chemistry stat given bicarb of 8 and blood sugar of greater than 600. Ordering FSBS now. Earlier bicarb was 25. If accurate will need bicarb drip and vasopressin but not sure as pH on blood gas was normal done around the same time. 3. Coagulopathy is improving. INR down to 4.55 and PTT and pT improving. Will continue to give FFP. Ordered more vitamin K. H/H is stable but patient is oozing from neck and mouth. 4. Vasopressor for blood pressure. Need to keep map 65 and greater 5. Lujan is needed for accurate I/O 6. Surgery called by IMS about current CT situation. They state they will reassess in the am. I have reviewed the images myself. If I can position the patient safely without compromising the airway after adequate sedation, may consider placing chest tube now as INR is better and FFP is hanging. Patient is morbidly obese so shits could move the ET tube so if not safe, will wait until surgery comes in the morning. 7. Would not attempt to pass OG or NG tube given current situation in neck 8. Will discuss with surgery tomorrow but I feel this patient should be transferred to a tertiary care facility with ENT as we do not have that service here. CCT 31 minutes. Subjective Date of service: 06/26/21 Interval history: No acute events. Awake and alert. Tolerating PSV trials well. Objective Vital Signs - 12hr 06/26/21 06/26/21 06/26/21 02:00 02:30 03:00 Temperature Pulse Rate 90 96 H 103 H Pulse Rate [ From Monitor] Respiratory 18 17 18 Rate Blood Pressure 176/68 173/71 166/74 O2 Sat by Pulse 97 100 100 Oximetry O2 Sat by Pulse Oximetry [ Assessment] 06/26/21 06/26/21 06/26/21 03:30 04:00 04:07 Temperature 98.0 F Pulse Rate 87 85 Pulse Rate [ 113 H From Monitor] Respiratory 18 18 Rate Blood Pressure 147/72 148/68 O2 Sat by Pulse 93 96 Oximetry O2 Sat by Pulse 100 Oximetry [ Assessment] 06/26/21 06/26/21 06/26/21 04:30 05:00 05:30 Temperature Pulse Rate 96 H 84 82 Pulse Rate [ From Monitor] Respiratory 19 29 H 18 Rate Blood Pressure 167/82 153/80 134/80 O2 Sat by Pulse 99 100 96 Oximetry O2 Sat by Pulse Oximetry [ Assessment] 06/26/21 06/26/21 06/26/21 06:00 06:30 07:00 Temperature Pulse Rate 81 78 84 Pulse Rate [ From Monitor] Respiratory 15 19 18 Rate Blood Pressure 140/77 139/73 151/65 O2 Sat by Pulse 99 98 100 Oximetry O2 Sat by Pulse Oximetry [ Assessment] 06/26/21 06/26/21 06/26/21 07:18 07:30 08:00 Temperature 98.4 F Pulse Rate 78 77 Pulse Rate [ 80 From Monitor] Respiratory 18 18 Rate Blood Pressure 138/52 140/63 O2 Sat by Pulse 100 100 Oximetry O2 Sat by Pulse Oximetry [ Assessment] 06/26/21 06/26/21 06/26/21 08:30 08:55 09:00 Temperature Pulse Rate 91 H 80 85 Pulse Rate [ From Monitor] Respiratory 18 18 Rate Blood Pressure 145/61 135/62 135/62 O2 Sat by Pulse 99 99 96 Oximetry O2 Sat by Pulse Oximetry [ Assessment] 06/26/21 06/26/21 06/26/21 09:07 09:12 09:30 Temperature Pulse Rate 93 H Pulse Rate [ From Monitor] Respiratory 14 Rate Blood Pressure 148/73 O2 Sat by Pulse 98 97 Oximetry O2 Sat by Pulse 99 Oximetry [ Assessment] 06/26/21 06/26/21 06/26/21 10:00 10:27 10:30 Temperature Pulse Rate 90 89 98 H Pulse Rate [ From Monitor] Respiratory 15 12 Rate Blood Pressure 139/68 148/72 152/82 O2 Sat by Pulse 95 96 Oximetry O2 Sat by Pulse Oximetry [ Assessment] 06/26/21 06/26/21 06/26/21 11:00 11:30 11:42 Temperature 98.9 F Pulse Rate 87 88 Pulse Rate [ From Monitor] Respiratory 12 15 Rate Blood Pressure 154/81 160/79 O2 Sat by Pulse 96 93 Oximetry O2 Sat by Pulse Oximetry [ Assessment] 06/26/21 12:50 Temperature Pulse Rate 88 Pulse Rate [ From Monitor] Respiratory Rate Blood Pressure 160/79 O2 Sat by Pulse 100 Oximetry O2 Sat by Pulse Oximetry [ Assessment] Constitutional: alert, other (on vent trach in place) Eyes: non-icteric ENT: oropharynx moist Neck: other (trach in place) Ascultation: Bilateral: clear Percussion: Bilateral: not dull Cardiovascular: regular rate and rhythm Gastrointestinal: normoactive bowel sounds, soft Integumentary: other (subq emphysema) Extremities: no edema, other (subq emphysema) Neurologic: normal mental status CBC and BMP: 06/26/21 05:29 06/26/21 05:29 ABG, PT/INR, D-dimer: ABG ABG pH 7.426 pH Units (7.350-7.450) 06/21/21 04:20 POC ABG pCO2 25.6 mmHg (32.0-48.0) L 06/13/21 04:31 ABG pCO2 35.1 mm Hg 06/21/21 04:20 POC ABG pO2 138.8 mmHg (83-108) H 06/13/21 04:31 ABG pO2 98.5 mm Hg (80.0-90.0) H 06/21/21 04:20 POC ABG HCO3 21.4 06/13/21 04:31 ABG O2 Saturation 97.7 % (95.0-99.0) 06/21/21 04:20 PT/INR, D-dimer PT 18.3 Sec. (12.2-14.9) H 06/20/21 04:33 INR 1.37 (0.87-1.13) H 06/20/21 04:33 D-Dimer 1244.63 ng/mlDDU (0-234) H 06/13/21 Unknown Abnormal lab findings: Abnormal Labs 06/11/21 06/11/21 06/11/21 15:23 15:23 19:20 WBC 12.0 H RBC Hgb Hct MCV 72 L MCH 21 L RDW 17.5 H Plt Count Lymph % (Auto) 12.9 L [place] % (Auto) 8.6 H Lymph # (Auto) [place] # (Auto) 1.0 H Seg Neutrophils % 77.4 H Seg Neuts % (Manual) Lymphocytes % (Manual) Monocytes % (Manual) Seg Neutrophils # 9.3 H Seg Neutrophils # Man Lymphocytes # (Manual) Monocytes # (Manual) PT INR APTT Fibrinogen D-Dimer ABG pH POC ABG pCO2 POC ABG pO2 ABG pO2 ABG HCO3 ABG O2 Saturation ABG Base Excess ABG Hemoglobin ABG Oxyhemoglobin Oxyhemoglobin Sodium Potassium Chloride Carbon Dioxide BUN Creatinine Glucose 144 H POC Glucose Lactic Acid Calcium Phosphorus Magnesium AST ALT Alkaline Phosphatase C-Reactive Protein Total Protein Albumin Triglycerides Ur Specific [place] Urine Creatinine Crossmatch See Detail 06/11/21 06/11/21 06/11/21 19:29 19:29 23:21 WBC 15.8 H RBC Hgb 9.4 L Hct MCV 72 L MCH 22 L RDW 17.4 H Plt Count Lymph % (Auto) 9.2 L [place] % (Auto) Lymph # (Auto) [place] # (Auto) Seg Neutrophils % 89.0 H Seg Neuts % (Manual) Lymphocytes % (Manual) Monocytes % (Manual) Seg Neutrophils # 14.0 H Seg Neutrophils # Man Lymphocytes # (Manual) Monocytes # (Manual) PT 72.9 H INR 8.18 H* APTT 71.7 H* Fibrinogen D-Dimer ABG pH POC ABG pCO2 POC ABG pO2 ABG pO2 ABG HCO3 ABG O2 Saturation ABG Base Excess ABG Hemoglobin ABG Oxyhemoglobin Oxyhemoglobin Sodium 149 H D Potassium Chloride 124.3 H Carbon Dioxide 8 L* D BUN Creatinine 0.3 L Glucose 628 H* POC Glucose Lactic Acid Calcium 2.4 L* D Phosphorus Magnesium AST ALT < 5 L Alkaline Phosphatase 19 L C-Reactive Protein Total Protein 1.6 L D Albumin 0.8 L Triglycerides Ur Specific [place] Urine Creatinine Crossmatch 06/11/21 06/11/21 06/11/21 23:21 23:22 23:42 WBC RBC Hgb Hct MCV MCH 27 L RDW 22.2 H Plt Count 131 L Lymph % (Auto) [place] % (Auto) Lymph # (Auto) [place] # (Auto) Seg Neutrophils % Seg Neuts % (Manual) Lymphocytes % (Manual) Monocytes % (Manual) Seg Neutrophils # Seg Neutrophils # Man Lymphocytes # (Manual) Monocytes # (Manual) PT 46.3 H INR 4.55 H APTT 54.8 H Fibrinogen D-Dimer ABG pH POC ABG pCO2 POC ABG pO2 325.9 H ABG pO2 ABG HCO3 ABG O2 Saturation ABG Base Excess ABG Hemoglobin 8.0 L ABG Oxyhemoglobin 99.0 H Oxyhemoglobin Sodium Potassium Chloride Carbon Dioxide BUN Creatinine Glucose POC Glucose Lactic Acid Calcium Phosphorus Magnesium AST ALT Alkaline Phosphatase C-Reactive Protein Total Protein Albumin Triglycerides Ur Specific [place] Urine Creatinine Crossmatch 06/12/21 06/12/21 06/12/21 01:45 01:45 01:45 WBC 21.6 H RBC 3.04 L Hgb 6.7 L D Hct 22.4 L D MCV 74 L MCH 22 L RDW 18.9 H Plt Count Lymph % (Auto) [place] % (Auto) Lymph # (Auto) [place] # (Auto) Seg Neutrophils % Seg Neuts % (Manual) 76.0 H Lymphocytes % (Manual) 2.0 L Monocytes % (Manual) 8.0 H Seg Neutrophils # Seg Neutrophils # Man 16.4 H Lymphocytes # (Manual) 0.4 L Monocytes # (Manual) 1.7 H PT 25.4 H INR 2.10 H APTT Fibrinogen D-Dimer ABG pH POC ABG pCO2 POC ABG pO2 ABG pO2 ABG HCO3 ABG O2 Saturation ABG Base Excess ABG Hemoglobin ABG Oxyhemoglobin Oxyhemoglobin Sodium Potassium 5.6 H D Chloride Carbon Dioxide 20 L D BUN Creatinine Glucose 368 H POC Glucose Lactic Acid Calcium 7.1 L D Phosphorus Magnesium AST ALT Alkaline Phosphatase C-Reactive Protein Total Protein 5.3 L D Albumin 3.1 L Triglycerides Ur Specific [place] Urine Creatinine Crossmatch 06/12/21 06/12/21 06/12/21 02:05 04:41 11:05 WBC 14.6 H RBC 3.52 L Hgb 8.5 L Hct 27.7 L MCV MCH 24 L RDW 20.9 H Plt Count Lymph % (Auto) [place] % (Auto) Lymph # (Auto) [place] # (Auto) Seg Neutrophils % Seg Neuts % (Manual) Lymphocytes % (Manual) Monocytes % (Manual) Seg Neutrophils # Seg Neutrophils # Man Lymphocytes # (Manual) Monocytes # (Manual) PT INR APTT Fibrinogen D-Dimer ABG pH POC ABG pCO2 POC ABG pO2 224.6 H ABG pO2 ABG HCO3 ABG O2 Saturation ABG Base Excess ABG Hemoglobin 7.3 L ABG Oxyhemoglobin 98.7 H Oxyhemoglobin Sodium Potassium Chloride Carbon Dioxide BUN Creatinine Glucose POC Glucose 308 H Lactic Acid Calcium Phosphorus Magnesium AST ALT Alkaline Phosphatase C-Reactive Protein Total Protein Albumin Triglycerides Ur Specific [place] Urine Creatinine Crossmatch 06/12/21 06/12/21 06/12/21 11:05 11:05 12:18 WBC RBC Hgb Hct MCV MCH RDW Plt Count Lymph % (Auto) [place] % (Auto) Lymph # (Auto) [place] # (Auto) Seg Neutrophils % Seg Neuts % (Manual) Lymphocytes % (Manual) Monocytes % (Manual) Seg Neutrophils # Seg Neutrophils # Man Lymphocytes # (Manual) Monocytes # (Manual) PT 16.8 H INR 1.23 H APTT Fibrinogen D-Dimer ABG pH POC ABG pCO2 POC ABG pO2 ABG pO2 ABG HCO3 ABG O2 Saturation ABG Base Excess ABG Hemoglobin ABG Oxyhemoglobin Oxyhemoglobin Sodium Potassium Chloride Carbon Dioxide BUN 24 H Creatinine Glucose 324 H POC Glucose 281 H Lactic Acid Calcium 7.5 L Phosphorus Magnesium AST 70 H ALT 57 H Alkaline Phosphatase C-Reactive Protein Total Protein 6.0 L Albumin 3.6 L Triglycerides Ur Specific [place] Urine Creatinine Crossmatch 06/12/21 06/12/21 06/12/21 17:00 17:00 17:00 WBC RBC Hgb 7.5 L Hct 24.0 L MCV MCH RDW Plt Count Lymph % (Auto) [place] % (Auto) Lymph # (Auto) [place] # (Auto) Seg Neutrophils % Seg Neuts % (Manual) Lymphocytes % (Manual) Monocytes % (Manual) Seg Neutrophils # Seg Neutrophils # Man Lymphocytes # (Manual) Monocytes # (Manual) PT 16.0 H INR 1.16 H APTT Fibrinogen D-Dimer ABG pH POC ABG pCO2 POC ABG pO2 ABG pO2 ABG HCO3 ABG O2 Saturation ABG Base Excess ABG Hemoglobin ABG Oxyhemoglobin Oxyhemoglobin Sodium Potassium Chloride Carbon Dioxide BUN Creatinine Glucose POC Glucose Lactic Acid Calcium Phosphorus Magnesium AST ALT Alkaline Phosphatase C-Reactive Protein Total Protein Albumin Triglycerides Ur Specific [place] 1.035 H Urine Creatinine Crossmatch 06/12/21 06/12/21 06/12/21 18:06 23:00 23:05 WBC RBC Hgb 7.6 L Hct 23.5 L MCV MCH RDW Plt Count Lymph % (Auto) [place] % (Auto) Lymph # (Auto) [place] # (Auto) Seg Neutrophils % Seg Neuts % (Manual) Lymphocytes % (Manual) Monocytes % (Manual) Seg Neutrophils # Seg Neutrophils # Man Lymphocytes # (Manual) Monocytes # (Manual) PT INR APTT Fibrinogen D-Dimer ABG pH POC ABG pCO2 POC ABG pO2 ABG pO2 ABG HCO3 ABG O2 Saturation ABG Base Excess ABG Hemoglobin ABG Oxyhemoglobin Oxyhemoglobin Sodium Potassium Chloride Carbon Dioxide BUN Creatinine Glucose POC Glucose 257 H 300 H Lactic Acid Calcium Phosphorus Magnesium AST ALT Alkaline Phosphatase C-Reactive Protein Total Protein Albumin Triglycerides Ur Specific [place] Urine Creatinine Crossmatch 06/13/21 06/13/21 06/13/21 04:31 05:19 07:30 WBC RBC Hgb 6.8 L Hct 21.7 L MCV MCH RDW Plt Count Lymph % (Auto) [place] % (Auto) Lymph # (Auto) [place] # (Auto) Seg Neutrophils % Seg Neuts % (Manual) Lymphocytes % (Manual) Monocytes % (Manual) Seg Neutrophils # Seg Neutrophils # Man Lymphocytes # (Manual) Monocytes # (Manual) PT INR APTT Fibrinogen D-Dimer ABG pH 7.541 H POC ABG pCO2 25.6 L POC ABG pO2 138.8 H ABG pO2 ABG HCO3 ABG O2 Saturation ABG Base Excess ABG Hemoglobin 7.3 L ABG Oxyhemoglobin 98.1 H Oxyhemoglobin Sodium Potassium Chloride Carbon Dioxide BUN Creatinine Glucose POC Glucose 286 H Lactic Acid Calcium Phosphorus Magnesium AST ALT Alkaline Phosphatase C-Reactive Protein Total Protein Albumin Triglycerides Ur Specific [place] Urine Creatinine Crossmatch 06/13/21 06/13/21 06/13/21 07:30 12:04 14:50 WBC RBC Hgb Hct MCV MCH RDW Plt Count Lymph % (Auto) [place] % (Auto) Lymph # (Auto) [place] # (Auto) Seg Neutrophils % Seg Neuts % (Manual) Lymphocytes % (Manual) Monocytes % (Manual) Seg Neutrophils # Seg Neutrophils # Man Lymphocytes # (Manual) Monocytes # (Manual) PT INR APTT Fibrinogen D-Dimer ABG pH 7.039 L* 7.182 L* POC ABG pCO2 POC ABG pO2 ABG pO2 63.1 L ABG HCO3 17.4 L ABG O2 Saturation 73.4 L ABG Base Excess -12.6 L -7.1 L ABG Hemoglobin 7.7 L 6.9 L ABG Oxyhemoglobin Oxyhemoglobin 71.8 L 93.5 L Sodium Potassium Chloride 108.9 H Carbon Dioxide BUN 28 H Creatinine Glucose 293 H POC Glucose Lactic Acid Calcium 7.2 L Phosphorus Magnesium AST 106 H ALT 92 H Alkaline Phosphatase C-Reactive Protein Total Protein 5.6 L Albumin 3.3 L Triglycerides Ur Specific [place] Urine Creatinine Crossmatch 06/13/21 06/13/21 06/13/21 14:54 15:45 17:34 WBC RBC Hgb Hct MCV MCH RDW Plt Count Lymph % (Auto) [place] % (Auto) Lymph # (Auto) [place] # (Auto) Seg Neutrophils % Seg Neuts % (Manual) Lymphocytes % (Manual) Monocytes % (Manual) Seg Neutrophils # Seg Neutrophils # Man Lymphocytes # (Manual) Monocytes # (Manual) PT INR APTT Fibrinogen D-Dimer ABG pH POC ABG pCO2 POC ABG pO2 ABG pO2 178.4 H ABG HCO3 ABG O2 Saturation 99.1 H ABG Base Excess ABG Hemoglobin 8.0 L ABG Oxyhemoglobin Oxyhemoglobin Sodium Potassium Chloride 107.3 H Carbon Dioxide 19 L BUN 33 H Creatinine 1.5 H Glucose 379 H POC Glucose Lactic Acid 5.30 H* Calcium 6.8 L Phosphorus Magnesium AST ALT Alkaline Phosphatase C-Reactive Protein Total Protein Albumin Triglycerides Ur Specific [place] Urine Creatinine Crossmatch 06/13/21 06/13/21 06/13/21 17:40 23:29 Unknown WBC 22.5 H RBC 3.16 L Hgb 8.0 L Hct 26.0 L MCV MCH 26 L RDW 21.4 H Plt Count Lymph % (Auto) [place] % (Auto) Lymph # (Auto) [place] # (Auto) Seg Neutrophils % Seg Neuts % (Manual) 88.0 H Lymphocytes % (Manual) 4.0 L Monocytes % (Manual) Seg Neutrophils # Seg Neutrophils # Man 19.8 H Lymphocytes # (Manual) 0.9 L Monocytes # (Manual) 1.4 H PT INR APTT Fibrinogen D-Dimer ABG pH POC ABG pCO2 POC ABG pO2 ABG pO2 ABG HCO3 ABG O2 Saturation ABG Base Excess ABG Hemoglobin ABG Oxyhemoglobin Oxyhemoglobin Sodium Potassium Chloride Carbon Dioxide BUN Creatinine Glucose POC Glucose 294 H 288 H Lactic Acid Calcium Phosphorus Magnesium AST ALT Alkaline Phosphatase C-Reactive Protein Total Protein Albumin Triglycerides Ur Specific [place] Urine Creatinine Crossmatch 06/13/21 06/14/21 06/14/21 Unknown 05:39 06:15 WBC RBC 2.93 L Hgb 7.2 L Hct 23.2 L MCV MCH 25 L RDW 21.2 H Plt Count Lymph % (Auto) [place] % (Auto) Lymph # (Auto) [place] # (Auto) Seg Neutrophils % Seg Neuts % (Manual) Lymphocytes % (Manual) Monocytes % (Manual) Seg Neutrophils # Seg Neutrophils # Man Lymphocytes # (Manual) Monocytes # (Manual) PT 17.6 H INR 1.31 H APTT Fibrinogen 546 H D-Dimer 1244.63 H ABG pH POC ABG pCO2 POC ABG pO2 ABG pO2 ABG HCO3 ABG O2 Saturation ABG Base Excess ABG Hemoglobin ABG Oxyhemoglobin Oxyhemoglobin Sodium Potassium Chloride Carbon Dioxide BUN Creatinine Glucose POC Glucose 246 H Lactic Acid Calcium Phosphorus Magnesium AST ALT Alkaline Phosphatase C-Reactive Protein Total Protein Albumin Triglycerides Ur Specific [place] Urine Creatinine Crossmatch 06/14/21 06/14/21 06/14/21 06:15 06:15 09:13 WBC RBC Hgb Hct MCV MCH RDW Plt Count Lymph % (Auto) [place] % (Auto) Lymph # (Auto) [place] # (Auto) Seg Neutrophils % Seg Neuts % (Manual) Lymphocytes % (Manual) Monocytes % (Manual) Seg Neutrophils # Seg Neutrophils # Man Lymphocytes # (Manual) Monocytes # (Manual) PT INR APTT Fibrinogen D-Dimer ABG pH POC ABG pCO2 POC ABG pO2 ABG pO2 183.0 H ABG HCO3 ABG O2 Saturation 99.2 H ABG Base Excess ABG Hemoglobin 6.6 L ABG Oxyhemoglobin Oxyhemoglobin Sodium 147 H Potassium Chloride 112.5 H Carbon Dioxide 21 L BUN 36 H Creatinine 1.4 H Glucose 281 H POC Glucose Lactic Acid Calcium 6.9 L Phosphorus Magnesium AST ALT Alkaline Phosphatase C-Reactive Protein Total Protein Albumin Triglycerides 189 H Ur Specific [place] Urine Creatinine Crossmatch 06/14/21 06/14/21 06/14/21 10:45 12:16 13:30 WBC RBC Hgb 7.1 L Hct 22.3 L MCV MCH RDW Plt Count Lymph % (Auto) [place] % (Auto) Lymph # (Auto) [place] # (Auto) Seg Neutrophils % Seg Neuts % (Manual) Lymphocytes % (Manual) Monocytes % (Manual) Seg Neutrophils # Seg Neutrophils # Man Lymphocytes # (Manual) Monocytes # (Manual) PT INR APTT Fibrinogen D-Dimer ABG pH 7.205 L POC ABG pCO2 POC ABG pO2 ABG pO2 261.3 H ABG HCO3 ABG O2 Saturation 99.4 H ABG Base Excess -7.2 L ABG Hemoglobin 7.6 L ABG Oxyhemoglobin Oxyhemoglobin Sodium Potassium Chloride Carbon Dioxide BUN Creatinine Glucose POC Glucose 174 H Lactic Acid Calcium Phosphorus Magnesium AST ALT Alkaline Phosphatase C-Reactive Protein Total Protein Albumin Triglycerides Ur Specific [place] Urine Creatinine Crossmatch 06/14/21 06/14/21 06/15/21 17:40 18:43 00:06 WBC RBC Hgb Hct MCV MCH RDW Plt Count Lymph % (Auto) [place] % (Auto) Lymph # (Auto) [place] # (Auto) Seg Neutrophils % Seg Neuts % (Manual) Lymphocytes % (Manual) Monocytes % (Manual) Seg Neutrophils # Seg Neutrophils # Man Lymphocytes # (Manual) Monocytes # (Manual) PT INR APTT Fibrinogen D-Dimer ABG pH 7.292 L POC ABG pCO2 POC ABG pO2 ABG pO2 78.8 L ABG HCO3 ABG O2 Saturation ABG Base Excess -5.0 L ABG Hemoglobin 9.1 L ABG Oxyhemoglobin Oxyhemoglobin 93.7 L Sodium Potassium Chloride Carbon Dioxide BUN Creatinine Glucose POC Glucose 182 H 144 H Lactic Acid Calcium Phosphorus Magnesium AST ALT Alkaline Phosphatase C-Reactive Protein Total Protein Albumin Triglycerides Ur Specific [place] Urine Creatinine Crossmatch 06/15/21 06/15/21 06/15/21 03:55 03:56 10:40 WBC RBC Hgb 8.4 L Hct 25.8 L MCV MCH RDW Plt Count Lymph % (Auto) [place] % (Auto) Lymph # (Auto) [place] # (Auto) Seg Neutrophils % Seg Neuts % (Manual) Lymphocytes % (Manual) Monocytes % (Manual) Seg Neutrophils # Seg Neutrophils # Man Lymphocytes # (Manual) Monocytes # (Manual) PT INR APTT Fibrinogen D-Dimer ABG pH POC ABG pCO2 POC ABG pO2 ABG pO2 ABG HCO3 ABG O2 Saturation ABG Base Excess ABG Hemoglobin ABG Oxyhemoglobin Oxyhemoglobin Sodium 147 H Potassium Chloride 112.2 H Carbon Dioxide 21 L BUN 47 H Creatinine 1.9 H Glucose 272 H POC Glucose Lactic Acid Calcium 7.3 L Phosphorus Magnesium AST 64 H ALT 106 H Alkaline Phosphatase C-Reactive Protein Total Protein 5.1 L Albumin 2.9 L Triglycerides Ur Specific [place] Urine Creatinine 81.1 H Crossmatch 06/15/21 06/15/21 06/15/21 11:46 17:16 23:17 WBC RBC Hgb Hct MCV MCH RDW Plt Count Lymph % (Auto) [place] % (Auto) Lymph # (Auto) [place] # (Auto) Seg Neutrophils % Seg Neuts % (Manual) Lymphocytes % (Manual) Monocytes % (Manual) Seg Neutrophils # Seg Neutrophils # Man Lymphocytes # (Manual) Monocytes # (Manual) PT INR APTT Fibrinogen D-Dimer ABG pH POC ABG pCO2 POC ABG pO2 ABG pO2 ABG HCO3 ABG O2 Saturation ABG Base Excess ABG Hemoglobin ABG Oxyhemoglobin Oxyhemoglobin Sodium Potassium Chloride Carbon Dioxide BUN Creatinine Glucose POC Glucose 271 H 268 H 264 H Lactic Acid Calcium Phosphorus Magnesium AST ALT Alkaline Phosphatase C-Reactive Protein Total Protein Albumin Triglycerides Ur Specific [place] Urine Creatinine Crossmatch 06/15/21 06/15/21 06/16/21 Unknown Unknown 04:32 WBC RBC 3.21 L 3.16 L Hgb 8.4 L 8.2 L Hct 26.1 L 25.4 L MCV MCH 26 L 26 L RDW 21.3 H 21.2 H Plt Count 105 L 118 L Lymph % (Auto) [place] % (Auto) Lymph # (Auto) [place] # (Auto) Seg Neutrophils % Seg Neuts % (Manual) Lymphocytes % (Manual) Monocytes % (Manual) Seg Neutrophils # Seg Neutrophils # Man Lymphocytes # (Manual) Monocytes # (Manual) PT INR APTT Fibrinogen D-Dimer ABG pH 7.465 H POC ABG pCO2 POC ABG pO2 ABG pO2 114.1 H ABG HCO3 ABG O2 Saturation ABG Base Excess ABG Hemoglobin 8.4 L ABG Oxyhemoglobin Oxyhemoglobin Sodium Potassium Chloride Carbon Dioxide BUN Creatinine Glucose POC Glucose Lactic Acid Calcium Phosphorus Magnesium AST ALT Alkaline Phosphatase C-Reactive Protein Total Protein Albumin Triglycerides Ur Specific [place] Urine Creatinine Crossmatch 06/16/21 06/16/21 06/16/21 04:32 04:32 05:08 WBC RBC Hgb Hct MCV MCH RDW Plt Count Lymph % (Auto) [place] % (Auto) Lymph # (Auto) [place] # (Auto) Seg Neutrophils % Seg Neuts % (Manual) Lymphocytes % (Manual) Monocytes % (Manual) Seg Neutrophils # Seg Neutrophils # Man Lymphocytes # (Manual) Monocytes # (Manual) PT INR APTT Fibrinogen D-Dimer ABG pH POC ABG pCO2 POC ABG pO2 ABG pO2 ABG HCO3 ABG O2 Saturation ABG Base Excess ABG Hemoglobin ABG Oxyhemoglobin Oxyhemoglobin Sodium 148 H Potassium 3.3 L Chloride 115.1 H Carbon Dioxide 21 L BUN 54 H Creatinine 1.6 H Glucose 367 H POC Glucose 356 H Lactic Acid Calcium 7.4 L Phosphorus Magnesium AST ALT Alkaline Phosphatase C-Reactive Protein 3.30 H Total Protein Albumin Triglycerides Ur Specific [place] Urine Creatinine Crossmatch 06/16/21 06/16/21 06/16/21 05:30 11:46 17:03 WBC RBC Hgb Hct MCV MCH RDW Plt Count Lymph % (Auto) [place] % (Auto) Lymph # (Auto) [place] # (Auto) Seg Neutrophils % Seg Neuts % (Manual) Lymphocytes % (Manual) Monocytes % (Manual) Seg Neutrophils # Seg Neutrophils # Man Lymphocytes # (Manual) Monocytes # (Manual) PT INR APTT Fibrinogen D-Dimer ABG pH 7.475 H POC ABG pCO2 POC ABG pO2 ABG pO2 171.8 H ABG HCO3 ABG O2 Saturation 99.1 H ABG Base Excess ABG Hemoglobin 11.7 L ABG Oxyhemoglobin Oxyhemoglobin Sodium Potassium Chloride Carbon Dioxide BUN Creatinine Glucose POC Glucose 309 H 345 H Lactic Acid Calcium Phosphorus Magnesium AST ALT Alkaline Phosphatase C-Reactive Protein Total Protein Albumin Triglycerides Ur Specific [place] Urine Creatinine Crossmatch 06/16/21 06/16/21 06/17/21 20:18 23:22 04:50 WBC RBC Hgb Hct MCV MCH RDW Plt Count Lymph % (Auto) [place] % (Auto) Lymph # (Auto) [place] # (Auto) Seg Neutrophils % Seg Neuts % (Manual) Lymphocytes % (Manual) Monocytes % (Manual) Seg Neutrophils # Seg Neutrophils # Man Lymphocytes # (Manual) Monocytes # (Manual) PT INR APTT Fibrinogen D-Dimer ABG pH 7.479 H POC ABG pCO2 POC ABG pO2 ABG pO2 143.1 H ABG HCO3 ABG O2 Saturation ABG Base Excess ABG Hemoglobin 10.0 L ABG Oxyhemoglobin Oxyhemoglobin Sodium Potassium Chloride Carbon Dioxide BUN Creatinine Glucose POC Glucose 325 H 315 H Lactic Acid Calcium Phosphorus Magnesium AST ALT Alkaline Phosphatase C-Reactive Protein Total Protein Albumin Triglycerides Ur Specific [place] Urine Creatinine Crossmatch 06/17/21 06/17/21 06/17/21 05:18 05:30 05:30 WBC RBC 3.17 L Hgb 8.2 L Hct 25.5 L MCV MCH 26 L RDW 21.2 H Plt Count 128 L Lymph % (Auto) [place] % (Auto) Lymph # (Auto) [place] # (Auto) Seg Neutrophils % Seg Neuts % (Manual) Lymphocytes % (Manual) Monocytes % (Manual) Seg Neutrophils # Seg Neutrophils # Man Lymphocytes # (Manual) Monocytes # (Manual) PT INR APTT Fibrinogen D-Dimer ABG pH POC ABG pCO2 POC ABG pO2 ABG pO2 ABG HCO3 ABG O2 Saturation ABG Base Excess ABG Hemoglobin ABG Oxyhemoglobin Oxyhemoglobin Sodium 148 H Potassium Chloride 113.7 H Carbon Dioxide 20 L BUN 57 H Creatinine 1.4 H Glucose 351 H POC Glucose 324 H Lactic Acid Calcium 8.0 L Phosphorus 2.30 L Magnesium AST ALT Alkaline Phosphatase C-Reactive Protein Total Protein Albumin Triglycerides Ur Specific [place] Urine Creatinine Crossmatch 06/17/21 06/17/21 06/17/21 11:49 17:43 21:42 WBC RBC Hgb Hct MCV MCH RDW Plt Count Lymph % (Auto) [place] % (Auto) Lymph # (Auto) [place] # (Auto) Seg Neutrophils % Seg Neuts % (Manual) Lymphocytes % (Manual) Monocytes % (Manual) Seg Neutrophils # Seg Neutrophils # Man Lymphocytes # (Manual) Monocytes # (Manual) PT INR APTT Fibrinogen D-Dimer ABG pH POC ABG pCO2 POC ABG pO2 ABG pO2 ABG HCO3 ABG O2 Saturation ABG Base Excess ABG Hemoglobin ABG Oxyhemoglobin Oxyhemoglobin Sodium Potassium Chloride Carbon Dioxide BUN Creatinine Glucose POC Glucose 305 H 307 H 286 H Lactic Acid Calcium Phosphorus Magnesium AST ALT Alkaline Phosphatase C-Reactive Protein Total Protein Albumin Triglycerides Ur Specific [place] Urine Creatinine Crossmatch 06/17/21 06/18/21 06/18/21 23:59 04:20 04:37 WBC RBC 3.53 L Hgb 9.1 L Hct 28.7 L MCV MCH 26 L RDW 21.3 H Plt Count Lymph % (Auto) [place] % (Auto) Lymph # (Auto) [place] # (Auto) Seg Neutrophils % Seg Neuts % (Manual) Lymphocytes % (Manual) Monocytes % (Manual) Seg Neutrophils # Seg Neutrophils # Man Lymphocytes # (Manual) Monocytes # (Manual) PT INR APTT Fibrinogen D-Dimer ABG pH 7.495 H POC ABG pCO2 POC ABG pO2 ABG pO2 108.3 H ABG HCO3 ABG O2 Saturation ABG Base Excess -2.1 L ABG Hemoglobin 10.0 L ABG Oxyhemoglobin Oxyhemoglobin Sodium Potassium Chloride Carbon Dioxide BUN Creatinine Glucose POC Glucose 264 H Lactic Acid Calcium Phosphorus Magnesium AST ALT Alkaline Phosphatase C-Reactive Protein Total Protein Albumin Triglycerides Ur Specific [place] Urine Creatinine Crossmatch 06/18/21 06/18/21 06/18/21 04:37 05:32 11:21 WBC RBC Hgb Hct MCV MCH RDW Plt Count Lymph % (Auto) [place] % (Auto) Lymph # (Auto) [place] # (Auto) Seg Neutrophils % Seg Neuts % (Manual) Lymphocytes % (Manual) Monocytes % (Manual) Seg Neutrophils # Seg Neutrophils # Man Lymphocytes # (Manual) Monocytes # (Manual) PT INR APTT Fibrinogen D-Dimer ABG pH POC ABG pCO2 POC ABG pO2 ABG pO2 ABG HCO3 ABG O2 Saturation ABG Base Excess ABG Hemoglobin ABG Oxyhemoglobin Oxyhemoglobin Sodium 148 H Potassium Chloride 114.7 H Carbon Dioxide BUN 59 H Creatinine 1.3 H Glucose 329 H POC Glucose 293 H 291 H Lactic Acid Calcium 8.1 L Phosphorus Magnesium AST ALT Alkaline Phosphatase C-Reactive Protein Total Protein Albumin Triglycerides Ur Specific [place] Urine Creatinine Crossmatch 06/18/21 06/18/21 06/19/21 18:21 21:46 00:15 WBC RBC Hgb Hct MCV MCH RDW Plt Count Lymph % (Auto) [place] % (Auto) Lymph # (Auto) [place] # (Auto) Seg Neutrophils % Seg Neuts % (Manual) Lymphocytes % (Manual) Monocytes % (Manual) Seg Neutrophils # Seg Neutrophils # Man Lymphocytes # (Manual) Monocytes # (Manual) PT INR APTT Fibrinogen D-Dimer ABG pH POC ABG pCO2 POC ABG pO2 ABG pO2 ABG HCO3 ABG O2 Saturation ABG Base Excess ABG Hemoglobin ABG Oxyhemoglobin Oxyhemoglobin Sodium Potassium Chloride Carbon Dioxide BUN Creatinine Glucose POC Glucose 239 H 259 H 310 H Lactic Acid Calcium Phosphorus Magnesium AST ALT Alkaline Phosphatase C-Reactive Protein Total Protein Albumin Triglycerides Ur Specific [place] Urine Creatinine Crossmatch 06/19/21 06/19/21 06/19/21 04:00 04:00 04:50 WBC RBC 3.64 L Hgb 9.1 L Hct 29.1 L MCV MCH 25 L RDW 21.5 H Plt Count Lymph % (Auto) [place] % (Auto) Lymph # (Auto) [place] # (Auto) Seg Neutrophils % Seg Neuts % (Manual) Lymphocytes % (Manual) Monocytes % (Manual) Seg Neutrophils # Seg Neutrophils # Man Lymphocytes # (Manual) Monocytes # (Manual) PT INR APTT Fibrinogen D-Dimer ABG pH POC ABG pCO2 POC ABG pO2 ABG pO2 78.9 L ABG HCO3 ABG O2 Saturation ABG Base Excess -3.2 L ABG Hemoglobin 7.6 L ABG Oxyhemoglobin Oxyhemoglobin Sodium 148 H Potassium Chloride 114.9 H Carbon Dioxide 19 L BUN 59 H Creatinine Glucose 345 H POC Glucose Lactic Acid Calcium 8.1 L Phosphorus 4.60 H D Magnesium 2.40 H AST ALT Alkaline Phosphatase C-Reactive Protein Total Protein Albumin Triglycerides Ur Specific [place] Urine Creatinine Crossmatch 06/19/21 06/19/21 06/19/21 06:28 11:11 17:20 WBC RBC Hgb Hct MCV MCH RDW Plt Count Lymph % (Auto) [place] % (Auto) Lymph # (Auto) [place] # (Auto) Seg Neutrophils % Seg Neuts % (Manual) Lymphocytes % (Manual) Monocytes % (Manual) Seg Neutrophils # Seg Neutrophils # Man Lymphocytes # (Manual) Monocytes # (Manual) PT 29.7 H INR 2.57 H APTT Fibrinogen D-Dimer ABG pH POC ABG pCO2 POC ABG pO2 ABG pO2 ABG HCO3 ABG O2 Saturation ABG Base Excess ABG Hemoglobin ABG Oxyhemoglobin Oxyhemoglobin Sodium Potassium Chloride Carbon Dioxide BUN Creatinine Glucose POC Glucose 279 H 275 H Lactic Acid Calcium Phosphorus Magnesium AST ALT Alkaline Phosphatase C-Reactive Protein Total Protein Albumin Triglycerides Ur Specific [place] Urine Creatinine Crossmatch 06/19/21 06/19/21 06/19/21 18:30 19:20 23:27 WBC RBC Hgb 8.0 L Hct 25.0 L MCV MCH RDW Plt Count Lymph % (Auto) [place] % (Auto) Lymph # (Auto) [place] # (Auto) Seg Neutrophils % Seg Neuts % (Manual) Lymphocytes % (Manual) Monocytes % (Manual) Seg Neutrophils # Seg Neutrophils # Man Lymphocytes # (Manual) Monocytes # (Manual) PT INR APTT Fibrinogen D-Dimer ABG pH POC ABG pCO2 POC ABG pO2 ABG pO2 ABG HCO3 ABG O2 Saturation ABG Base Excess ABG Hemoglobin ABG Oxyhemoglobin Oxyhemoglobin Sodium Potassium Chloride Carbon Dioxide BUN Creatinine Glucose POC Glucose 279 H 290 H Lactic Acid Calcium Phosphorus Magnesium AST ALT Alkaline Phosphatase C-Reactive Protein Total Protein Albumin Triglycerides Ur Specific [place] Urine Creatinine Crossmatch 06/20/21 06/20/21 06/20/21 00:00 04:33 04:33 WBC 22.3 H RBC 3.31 L Hgb 7.4 L 8.5 L Hct 22.5 L 26.5 L MCV MCH 26 L RDW 21.5 H Plt Count Lymph % (Auto) [place] % (Auto) Lymph # (Auto) [place] # (Auto) Seg Neutrophils % Seg Neuts % (Manual) Lymphocytes % (Manual) Monocytes % (Manual) Seg Neutrophils # Seg Neutrophils # Man Lymphocytes # (Manual) Monocytes # (Manual) PT INR APTT Fibrinogen D-Dimer ABG pH POC ABG pCO2 POC ABG pO2 ABG pO2 ABG HCO3 ABG O2 Saturation ABG Base Excess ABG Hemoglobin ABG Oxyhemoglobin Oxyhemoglobin Sodium 148 H Potassium Chloride 114.2 H Carbon Dioxide BUN 70 H Creatinine 1.4 H Glucose 313 H POC Glucose Lactic Acid Calcium 8.2 L Phosphorus Magnesium 2.50 H AST ALT Alkaline Phosphatase C-Reactive Protein Total Protein Albumin Triglycerides Ur Specific [place] Urine Creatinine Crossmatch 06/20/21 06/20/21 06/20/21 04:33 05:27 11:21 WBC RBC Hgb Hct MCV MCH RDW Plt Count Lymph % (Auto) [place] % (Auto) Lymph # (Auto) [place] # (Auto) Seg Neutrophils % Seg Neuts % (Manual) Lymphocytes % (Manual) Monocytes % (Manual) Seg Neutrophils # Seg Neutrophils # Man Lymphocytes # (Manual) Monocytes # (Manual) PT 18.3 H INR 1.37 H APTT Fibrinogen D-Dimer ABG pH POC ABG pCO2 POC ABG pO2 ABG pO2 ABG HCO3 ABG O2 Saturation ABG Base Excess ABG Hemoglobin ABG Oxyhemoglobin Oxyhemoglobin Sodium Potassium Chloride Carbon Dioxide BUN Creatinine Glucose POC Glucose 288 H 306 H Lactic Acid Calcium Phosphorus Magnesium AST ALT Alkaline Phosphatase C-Reactive Protein Total Protein Albumin Triglycerides Ur Specific [place] Urine Creatinine Crossmatch 06/20/21 06/20/21 06/20/21 12:23 15:56 18:20 WBC RBC Hgb 8.2 L 8.1 L Hct 25.9 L 25.5 L MCV MCH RDW Plt Count Lymph % (Auto) [place] % (Auto) Lymph # (Auto) [place] # (Auto) Seg Neutrophils % Seg Neuts % (Manual) Lymphocytes % (Manual) Monocytes % (Manual) Seg Neutrophils # Seg Neutrophils # Man Lymphocytes # (Manual) Monocytes # (Manual) PT INR APTT Fibrinogen D-Dimer ABG pH POC ABG pCO2 POC ABG pO2 ABG pO2 ABG HCO3 ABG O2 Saturation ABG Base Excess ABG Hemoglobin ABG Oxyhemoglobin Oxyhemoglobin Sodium Potassium Chloride Carbon Dioxide BUN Creatinine Glucose POC Glucose 293 H Lactic Acid Calcium Phosphorus Magnesium AST ALT Alkaline Phosphatase C-Reactive Protein Total Protein Albumin Triglycerides Ur Specific [place] Urine Creatinine Crossmatch 06/20/21 06/21/21 06/21/21 23:11 04:20 04:42 WBC 15.1 H RBC 2.84 L Hgb 7.3 L Hct 23.1 L MCV MCH 26 L RDW 21.5 H Plt Count Lymph % (Auto) 3.5 L [place] % (Auto) 11.7 H Lymph # (Auto) 0.5 L [place] # (Auto) 1.8 H Seg Neutrophils % 84.7 H Seg Neuts % (Manual) Lymphocytes % (Manual) Monocytes % (Manual) Seg Neutrophils # 12.8 H Seg Neutrophils # Man Lymphocytes # (Manual) Monocytes # (Manual) PT INR APTT Fibrinogen D-Dimer ABG pH POC ABG pCO2 POC ABG pO2 ABG pO2 98.5 H ABG HCO3 ABG O2 Saturation ABG Base Excess ABG Hemoglobin 7.2 L ABG Oxyhemoglobin Oxyhemoglobin Sodium Potassium Chloride Carbon Dioxide BUN Creatinine Glucose POC Glucose 206 H Lactic Acid Calcium Phosphorus Magnesium AST ALT Alkaline Phosphatase C-Reactive Protein Total Protein Albumin Triglycerides Ur Specific [place] Urine Creatinine Crossmatch 06/21/21 06/21/21 06/21/21 04:42 05:08 11:06 WBC RBC Hgb Hct MCV MCH RDW Plt Count Lymph % (Auto) [place] % (Auto) Lymph # (Auto) [place] # (Auto) Seg Neutrophils % Seg Neuts % (Manual) Lymphocytes % (Manual) Monocytes % (Manual) Seg Neutrophils # Seg Neutrophils # Man Lymphocytes # (Manual) Monocytes # (Manual) PT INR APTT Fibrinogen D-Dimer ABG pH POC ABG pCO2 POC ABG pO2 ABG pO2 ABG HCO3 ABG O2 Saturation ABG Base Excess ABG Hemoglobin ABG Oxyhemoglobin Oxyhemoglobin Sodium 151 H Potassium Chloride 117.2 H Carbon Dioxide 21 L BUN 75 H Creatinine 1.6 H Glucose 216 H POC Glucose 190 H 204 H Lactic Acid Calcium 7.9 L Phosphorus Magnesium 2.60 H AST ALT Alkaline Phosphatase C-Reactive Protein Total Protein Albumin Triglycerides 254 H Ur Specific [place] Urine Creatinine Crossmatch 06/21/21 06/21/21 06/21/21 14:00 16:42 21:52 WBC RBC Hgb 7.1 L 7.2 L Hct 22.0 L 22.1 L MCV MCH RDW Plt Count Lymph % (Auto) [place] % (Auto) Lymph # (Auto) [place] # (Auto) Seg Neutrophils % Seg Neuts % (Manual) Lymphocytes % (Manual) Monocytes % (Manual) Seg Neutrophils # Seg Neutrophils # Man Lymphocytes # (Manual) Monocytes # (Manual) PT INR APTT Fibrinogen D-Dimer ABG pH POC ABG pCO2 POC ABG pO2 ABG pO2 ABG HCO3 ABG O2 Saturation ABG Base Excess ABG Hemoglobin ABG Oxyhemoglobin Oxyhemoglobin Sodium Potassium Chloride Carbon Dioxide BUN Creatinine Glucose POC Glucose 207 H Lactic Acid Calcium Phosphorus Magnesium AST ALT Alkaline Phosphatase C-Reactive Protein Total Protein Albumin Triglycerides Ur Specific [place] Urine Creatinine Crossmatch 06/21/21 06/22/21 06/22/21 23:29 04:30 04:30 WBC 16.8 H RBC 2.93 L Hgb 7.4 L Hct 23.9 L MCV MCH 25 L RDW 21.8 H Plt Count Lymph % (Auto) [place] % (Auto) Lymph # (Auto) [place] # (Auto) Seg Neutrophils % Seg Neuts % (Manual) Lymphocytes % (Manual) Monocytes % (Manual) Seg Neutrophils # Seg Neutrophils # Man Lymphocytes # (Manual) Monocytes # (Manual) PT INR APTT Fibrinogen D-Dimer ABG pH POC ABG pCO2 POC ABG pO2 ABG pO2 ABG HCO3 ABG O2 Saturation ABG Base Excess ABG Hemoglobin ABG Oxyhemoglobin Oxyhemoglobin Sodium 151 H Potassium Chloride 118.7 H Carbon Dioxide BUN 57 H Creatinine Glucose 238 H POC Glucose 273 H Lactic Acid Calcium 8.0 L Phosphorus Magnesium 2.70 H AST ALT Alkaline Phosphatase C-Reactive Protein Total Protein Albumin Triglycerides Ur Specific [place] Urine Creatinine Crossmatch 06/22/21 06/22/21 06/22/21 05:17 11:31 14:20 WBC RBC Hgb 7.4 L Hct 22.5 L MCV MCH RDW Plt Count Lymph % (Auto) [place] % (Auto) Lymph # (Auto) [place] # (Auto) Seg Neutrophils % Seg Neuts % (Manual) Lymphocytes % (Manual) Monocytes % (Manual) Seg Neutrophils # Seg Neutrophils # Man Lymphocytes # (Manual) Monocytes # (Manual) PT INR APTT Fibrinogen D-Dimer ABG pH POC ABG pCO2 POC ABG pO2 ABG pO2 ABG HCO3 ABG O2 Saturation ABG Base Excess ABG Hemoglobin ABG Oxyhemoglobin Oxyhemoglobin Sodium Potassium Chloride Carbon Dioxide BUN Creatinine Glucose POC Glucose 214 H 214 H Lactic Acid Calcium Phosphorus Magnesium AST ALT Alkaline Phosphatase C-Reactive Protein Total Protein Albumin Triglycerides Ur Specific [place] Urine Creatinine Crossmatch 06/22/21 06/22/21 06/23/21 17:18 23:47 05:33 WBC RBC Hgb Hct MCV MCH RDW Plt Count Lymph % (Auto) [place] % (Auto) Lymph # (Auto) [place] # (Auto) Seg Neutrophils % Seg Neuts % (Manual) Lymphocytes % (Manual) Monocytes % (Manual) Seg Neutrophils # Seg Neutrophils # Man Lymphocytes # (Manual) Monocytes # (Manual) PT INR APTT Fibrinogen D-Dimer ABG pH POC ABG pCO2 POC ABG pO2 ABG pO2 ABG HCO3 ABG O2 Saturation ABG Base Excess ABG Hemoglobin ABG Oxyhemoglobin Oxyhemoglobin Sodium Potassium Chloride Carbon Dioxide BUN Creatinine Glucose POC Glucose 238 H 227 H 202 H Lactic Acid Calcium Phosphorus Magnesium AST ALT Alkaline Phosphatase C-Reactive Protein Total Protein Albumin Triglycerides Ur Specific [place] Urine Creatinine Crossmatch 06/23/21 06/23/21 06/23/21 10:04 10:04 11:06 WBC 20.3 H RBC 2.71 L Hgb 7.3 L Hct 21.8 L MCV MCH 27 L RDW 22.1 H Plt Count Lymph % (Auto) [place] % (Auto) Lymph # (Auto) [place] # (Auto) Seg Neutrophils % Seg Neuts % (Manual) Lymphocytes % (Manual) Monocytes % (Manual) Seg Neutrophils # Seg Neutrophils # Man Lymphocytes # (Manual) Monocytes # (Manual) PT INR APTT Fibrinogen D-Dimer ABG pH POC ABG pCO2 POC ABG pO2 ABG pO2 ABG HCO3 ABG O2 Saturation ABG Base Excess ABG Hemoglobin ABG Oxyhemoglobin Oxyhemoglobin Sodium 151 H Potassium 3.2 L Chloride 116.9 H Carbon Dioxide BUN 40 H Creatinine Glucose 208 H POC Glucose 204 H Lactic Acid Calcium 8.0 L Phosphorus 1.80 L D Magnesium AST ALT Alkaline Phosphatase C-Reactive Protein Total Protein Albumin Triglycerides Ur Specific [place] Urine Creatinine Crossmatch 06/23/21 06/23/21 06/24/21 16:11 23:47 04:00 WBC 16.9 H RBC 2.49 L Hgb 6.6 L Hct 20.3 L MCV MCH 26 L RDW 22.6 H Plt Count Lymph % (Auto) [place] % (Auto) Lymph # (Auto) [place] # (Auto) Seg Neutrophils % Seg Neuts % (Manual) Lymphocytes % (Manual) Monocytes % (Manual) Seg Neutrophils # Seg Neutrophils # Man Lymphocytes # (Manual) Monocytes # (Manual) PT INR APTT Fibrinogen D-Dimer ABG pH POC ABG pCO2 POC ABG pO2 ABG pO2 ABG HCO3 ABG O2 Saturation ABG Base Excess ABG Hemoglobin ABG Oxyhemoglobin Oxyhemoglobin Sodium Potassium Chloride Carbon Dioxide BUN Creatinine Glucose POC Glucose 228 H 189 H Lactic Acid Calcium Phosphorus Magnesium AST ALT Alkaline Phosphatase C-Reactive Protein Total Protein Albumin Triglycerides Ur Specific [place] Urine Creatinine Crossmatch 06/24/21 06/24/21 06/24/21 04:00 05:43 06:40 WBC RBC Hgb Hct MCV MCH RDW Plt Count Lymph % (Auto) [place] % (Auto) Lymph # (Auto) [place] # (Auto) Seg Neutrophils % Seg Neuts % (Manual) Lymphocytes % (Manual) Monocytes % (Manual) Seg Neutrophils # Seg Neutrophils # Man Lymphocytes # (Manual) Monocytes # (Manual) PT INR APTT Fibrinogen D-Dimer ABG pH POC ABG pCO2 POC ABG pO2 ABG pO2 ABG HCO3 ABG O2 Saturation ABG Base Excess ABG Hemoglobin ABG Oxyhemoglobin Oxyhemoglobin Sodium 148 H Potassium 3.2 L Chloride 115.6 H Carbon Dioxide BUN 35 H Creatinine Glucose 153 H POC Glucose 134 H Lactic Acid Calcium 7.9 L Phosphorus 2.40 L D Magnesium AST ALT Alkaline Phosphatase C-Reactive Protein Total Protein Albumin Triglycerides Ur Specific [place] Urine Creatinine Crossmatch See Detail 06/24/21 06/24/21 06/24/21 11:08 16:47 21:49 WBC RBC Hgb Hct MCV MCH RDW Plt Count Lymph % (Auto) [place] % (Auto) Lymph # (Auto) [place] # (Auto) Seg Neutrophils % Seg Neuts % (Manual) Lymphocytes % (Manual) Monocytes % (Manual) Seg Neutrophils # Seg Neutrophils # Man Lymphocytes # (Manual) Monocytes # (Manual) PT INR APTT Fibrinogen D-Dimer ABG pH POC ABG pCO2 POC ABG pO2 ABG pO2 ABG HCO3 ABG O2 Saturation ABG Base Excess ABG Hemoglobin ABG Oxyhemoglobin Oxyhemoglobin Sodium Potassium Chloride Carbon Dioxide BUN Creatinine Glucose POC Glucose 153 H 201 H 132 H Lactic Acid Calcium Phosphorus Magnesium AST ALT Alkaline Phosphatase C-Reactive Protein Total Protein Albumin Triglycerides Ur Specific [place] Urine Creatinine Crossmatch 06/24/21 06/25/21 06/25/21 23:24 05:30 09:00 WBC RBC Hgb 8.3 L Hct 27.0 L MCV MCH RDW Plt Count Lymph % (Auto) [place] % (Auto) Lymph # (Auto) [place] # (Auto) Seg Neutrophils % Seg Neuts % (Manual) Lymphocytes % (Manual) Monocytes % (Manual) Seg Neutrophils # Seg Neutrophils # Man Lymphocytes # (Manual) Monocytes # (Manual) PT INR APTT Fibrinogen D-Dimer ABG pH POC ABG pCO2 POC ABG pO2 ABG pO2 ABG HCO3 ABG O2 Saturation ABG Base Excess ABG Hemoglobin ABG Oxyhemoglobin Oxyhemoglobin Sodium Potassium Chloride Carbon Dioxide BUN Creatinine Glucose POC Glucose 170 H 151 H Lactic Acid Calcium Phosphorus Magnesium AST ALT Alkaline Phosphatase C-Reactive Protein Total Protein Albumin Triglycerides Ur Specific [place] Urine Creatinine Crossmatch 06/25/21 06/25/21 06/25/21 11:29 14:24 16:48 WBC RBC Hgb 8.5 L Hct 27.5 L MCV MCH RDW Plt Count Lymph % (Auto) [place] % (Auto) Lymph # (Auto) [place] # (Auto) Seg Neutrophils % Seg Neuts % (Manual) Lymphocytes % (Manual) Monocytes % (Manual) Seg Neutrophils # Seg Neutrophils # Man Lymphocytes # (Manual) Monocytes # (Manual) PT INR APTT Fibrinogen D-Dimer ABG pH POC ABG pCO2 POC ABG pO2 ABG pO2 ABG HCO3 ABG O2 Saturation ABG Base Excess ABG Hemoglobin ABG Oxyhemoglobin Oxyhemoglobin Sodium Potassium Chloride Carbon Dioxide BUN Creatinine Glucose POC Glucose 189 H 224 H Lactic Acid Calcium Phosphorus Magnesium AST ALT Alkaline Phosphatase C-Reactive Protein Total Protein Albumin Triglycerides Ur Specific [place] Urine Creatinine Crossmatch 06/25/21 06/25/21 06/25/21 23:39 Unknown Unknown WBC 16.5 H RBC 2.90 L Hgb 8.0 L Hct 23.8 L MCV MCH RDW 22.8 H Plt Count Lymph % (Auto) [place] % (Auto) Lymph # (Auto) [place] # (Auto) Seg Neutrophils % Seg Neuts % (Manual) Lymphocytes % (Manual) Monocytes % (Manual) Seg Neutrophils # Seg Neutrophils # Man Lymphocytes # (Manual) Monocytes # (Manual) PT INR APTT Fibrinogen D-Dimer ABG pH POC ABG pCO2 POC ABG pO2 ABG pO2 ABG HCO3 ABG O2 Saturation ABG Base Excess ABG Hemoglobin ABG Oxyhemoglobin Oxyhemoglobin Sodium 149 H Potassium Chloride 115.6 H Carbon Dioxide BUN 28 H Creatinine Glucose 157 H POC Glucose 187 H Lactic Acid Calcium 8.0 L Phosphorus Magnesium AST ALT Alkaline Phosphatase C-Reactive Protein Total Protein Albumin Triglycerides Ur Specific [place] Urine Creatinine Crossmatch 06/26/21 06/26/21 06/26/21 05:22 05:29 05:29 WBC 16.2 H RBC 3.03 L Hgb 8.0 L Hct 25.1 L MCV MCH 26 L RDW 23.2 H Plt Count Lymph % (Auto) [place] % (Auto) Lymph # (Auto) [place] # (Auto) Seg Neutrophils % Seg Neuts % (Manual) Lymphocytes % (Manual) Monocytes % (Manual) Seg Neutrophils # Seg Neutrophils # Man Lymphocytes # (Manual) Monocytes # (Manual) PT INR APTT Fibrinogen D-Dimer ABG pH POC ABG pCO2 POC ABG pO2 ABG pO2 ABG HCO3 ABG O2 Saturation ABG Base Excess ABG Hemoglobin ABG Oxyhemoglobin Oxyhemoglobin Sodium 150 H Potassium Chloride 114.8 H Carbon Dioxide BUN 29 H Creatinine Glucose 229 H POC Glucose 211 H Lactic Acid Calcium 8.2 L Phosphorus Magnesium AST ALT Alkaline Phosphatase C-Reactive Protein Total Protein Albumin Triglycerides Ur Specific [place] Urine Creatinine Crossmatch 06/26/21 11:05 WBC RBC Hgb Hct MCV MCH RDW Plt Count Lymph % (Auto) [place] % (Auto) Lymph # (Auto) [place] # (Auto) Seg Neutrophils % Seg Neuts % (Manual) Lymphocytes % (Manual) Monocytes % (Manual) Seg Neutrophils # Seg Neutrophils # Man Lymphocytes # (Manual) Monocytes # (Manual) PT INR APTT Fibrinogen D-Dimer ABG pH POC ABG pCO2 POC ABG pO2 ABG pO2 ABG HCO3 ABG O2 Saturation ABG Base Excess ABG Hemoglobin ABG Oxyhemoglobin Oxyhemoglobin Sodium Potassium Chloride Carbon Dioxide BUN Creatinine Glucose POC Glucose 213 H Lactic Acid Calcium Phosphorus Magnesium AST ALT Alkaline Phosphatase C-Reactive Protein Total Protein Albumin Triglycerides Ur Specific [place] Urine Creatinine Crossmatch
--- NOTE | 2021-06-26 16:53 | Progress Note ---
Assessment and Plan Assessment and plan: This is a 76-year-old female with HTN, Coumadin use, dental caries, PVD s/p stenting to right leg, DM, arthritis, depression, gout and ? Pulmonary hypertension admitted with Jeremiah's angina s/p emergent cric with bleeding, right sided pneumothorax, supratherapeutic INR, hypernatremia, hyperchloremia, severe metabolic acidosis, hyperglycemia and hypocalcemia Neuro: Sedated, h/o depression, arthritis -Sedated fentanyl gtt -RASS goal 0 to -1 -Avoid delirium -Reorientation as needed -Maintain sleep-wake cycle -PT consulted; recommends LTAC Cardiac: S/p cardiac arrest, h/o htn, PVD s/p stenting Right leg -06/14 cardiac arrest with ROSC -S/p vasopressor support with Levophed and Fabian-Synephrine -Blood pressure monitoring per protocol -Antihypertensive regimen: Hydralazine 100 mg every 8 -06/13 Echocardiogram EF 65-70% Respiratory: Acute hypoxic respiratory failure, right pneumothorax -CCM consulted, appreciate recommendations -S/p emergent cricothyroidectomy with surgery with 8.00 ETT -s/p trach 06/19 with surgery (#[address]) -A.m. vent settings: Assist-control rate 18, tidal volume 450, PEEP 6, FiO2 30% -T-piece trials started today -A.m. ABG and CXR noted -Right chest tube replaced by surgery -CT to wall suction -Changed to larger bore on 06/13 -Planned for removal when weaned off ventilator -Postop CXR shows possible hydropneumothorax on right side -06/13 bronchoscopy showed possible blood clot in left lung which may be acting as mucous plug however it was left in place due to possible bleeding inside lung if removed. -CXR post cardiac arrest shows clearance of mucous plug -06/16 CT chest shows moderate right pneumothorax with collapse of right upper lobe, right thoracostomy tube terminates at the collapsed right upper lobe, bilateral bronchus opacities compatible with infectious/inflammatory etiology, bilateral small pleural effusion, extensive subcutaneous air, small fluid collection in the anterior mediastinum is nonspecific -VAP bundle -SPO2 monitoring GI: Protein calorie malnutrition -24 hours -57 mL -CT 110 mL -PPI -BR: senna, colace -s/p TPN -Enteric consult for nutrition -S/p PEG : Acute kidney injury possibly secondary to vasomotor nephropathy, metabolic acidosis, hypokalemia, hypernatremia, hyperchloremia -Strict intake and output -Renally dose medications -Avoid nephrotoxic medications -Daily weights -Consider nephrology consult if worsens -S/p 7 L LR bolus -FeNa 0.067 -Replete potassium -Free water flush to 300 every 4 -Free water deficit 2.08 L 06/25 ID: 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 dental caries -CT neck with contrast showed a significant right floor of mild swelling with extension into the submandibular and submental spaces, significant thickening and inflammation involving the right pharyngeal wall, with the parapharyngeal and retropharyngeal spaces at the level of the thyroid cartilage, epiglottis significantly swollen and so are the aryepiglottic folds resulting in significant airway narrowing at this level, no lymphadenopathy, symmetric submandibular and parathyroid glands, S few scattered caries but no periapical lucencies, nonspecific calcification along the right lateral oropharynx, no definite stone seen within the territory of the submandibular gland ducts, no suspicious rashes lesion -Infectious disease and general surgery consulted, appreciate recommendations -s/p cricothyroidectomy -Will follow surgery to direction and treatment of injury -Per surgery may have mucosal injury -Intra-Op findings include post pharyngeal swelling and bruising -Solu-Medrol 125 every 8 -tapering -Antibiotic therapy Zosyn -COVID-19 PCR negative -f/u blood culture -Monitor WBC and temperature curve -s/p 5L normal saline bolus in ED, 7 L LR bolus in ICU Heme: Coagulopathy, supratherapeutic INR, acute blood loss anemiq, possible component of hemorrhagic shock -Patient is on Coumadin at home -S/p 5 FFP, 8 PRBC, vitamin K x3 -Trend CBC -Presented with H/H of 10.3/34.6 and decreased to 6.7/22.4 -INR 8.18-> 4.55-> 2.1-> 1.23-> 1.16-> 1.31 -Monitor INR -Transfuse hemoglobin less than 7 -Serial H&H -Monitor for signs of bleeding -SCDs to BLE while in bed -Avoid chemical anticoagulation in setting of recent blood loss anemia Endo: Hyperglycemia, h/o DM, gout -S/p Lantus 25 units x 1 -Lantus subcu, titrate as needed -Lispro TID -Avoid hypoglycemia -SSI -Accu-Cheks q. 6hr The high probability of a clinically significant, sudden or life threatening deterioration of the [multi] system(s) required my full and direct attention, intervention and personal management. The aggregate critical care time was [60] minutes. This time is in addition to time spent performing reported procedures but includes the following: [x] Data Review and interpretation [x] Patient assessment and monitoring of vital signs [x] Documentation [x] Medication orders and management Disposition Plan: icu Total Time Spent with Patient (Minutes): 60 History Interval history: This is a 76-year-old female with HTN, Coumadin use , dental caries, PVD s/p stenting right leg, DM, arthritis, depression, gout, and ? Pulmonary hypertension who presented to emergency department on 06/11 with complaints of pain to mandible area and throat and swelling. Work-up in the emergency department included CT scan of the head and neck which showed findings consistent with Jeremiah's angina and anesthesia was called for intubation. Anesthesia intubation attempts were unsuccessful and surgery was consulted for cricothyroidotomy which was unsuccessful in the emergency department and patient was taken to the OR for tracheostomy. Intubation procedure was complicated by development of pneumothorax and excessive bleeding. Patient given multiple FFP's and vitamin K several times who attempts to decrease INR. Lab work showed leukocytosis, supratherapeutic INR, hypernatremia, hyperchloremia, severe metabolic acidosis, hyperglycemia, hypocalcemia. Patient was admitted to the hospitalist service with consults to [facility], general surgery, infectious disease. Hospital course to date: 06/12: Patient received additional 2 units FFP and 1 unit PRBC and vitamin K today. Overnight critical care placed a femoral CVL. Patient sedated on fentanyl, propofol and Versed. Currently on Fabian-Synephrine and Levophed for blood pressure maintenance. Remains amatory support. Infectious disease consulted. Started on sliding scale insulin and recultured. COVID-19 PCR pending. Surgery at bedside to place chest tube. 06/13: Patient was taken back to the OR today for exchange cricothyroid to possible tracheostomy. Patient returned with ETT. Chest tube was changed to larger size in the OR. Patient was hypotensive, tachycardic, hypoxic in the OR and received hespan, albumin and an A-line. Upon arrival patient was increased to max dose Levophed for hypotension which has resolved. Titrating vasopressors as tolerated. Remains on sedation with 3 agents. Apparently patient was not ventilating her left lung Intra-Op. Noted to have subcu hematoma and trauma to postpharyngeal area. Questionable decrease cardiac wall motion noted in OR-> will order echocardiogram to further investigate. Patient received additional PRBC today. DIC panel resulted as normal. Patient BUN/creatinine did increase as well as noted to have lactic acidosis. May need IV bolus in addition to pre ssor use. Likely bronc with Pulmicort today as repeat CXR showed right possible pneumo hydrothorax 06/14: Antibiotics changed to Zosyn per ID, surgical packing removed from neck and makeshift [place] drain placed by surgery and old chronic thyroidectomy site. CXR was completed and RN heard gurgling and blood was noted on dressing. ST elevation noted on bedside monitor and patient was hypoxic. FiO2 increased to 100%. However shortly after patient lost her pulse and ACLS was initiated. Patient received 3 rounds of epinephrine and ROSC was achieved. Stat portable CXR showed resolution of lower lobe collapse on the left and stable right-sided chest tube with hemothorax. CCM updated family. Patient H/H noted to be 7.2/23.2 and did RN to transfuse prepared PRBC which [facility] blood bank. Bedside echo completed. 06/15: Off sedation, intermittently follows commands, remains on the prednisone. Surgery will reassess airway on Thursday to see if any further support is required. Urine studies indicate prerenal, given IV bolus and started on Clinimix today. 06/16: Patient restarted on fentanyl drip due to hypertension. Given more LR due to CR improvement post LR yesterday. Patient started on Lantus subcu after given one-time dose of Lantus. PICC placed today. Patient had a CT chest today which showed no mediasinusitis but extensive subcutaneous air. 06/17: General Surgery recommended transferring patient to a ENT specialized facility. Placed a call to [facility], spoke with the plastic molder, Dr. Duckworth, who stated that a transfer is possible as long their E NT team accept the patient. Awaiting on a final response. Continue current supportive measures. Basal insulin adjusted for hyperglycemia. 06/18: JEREMIAS overnight. Hypertensive this am, PRN Hydralazine for SBP greater than 160. Remains hyperglycemic, patient is on IV steroids and TPN, basal insulin adjusted. Plan for possible transfer to [place] once an ICU bed is available. 06/19: Low SPO2 and hypotension overnight required Levophed for a short time. Overnight CXR noted with no significant changed. Patient is stable this am and off pressors. Plan for possible Trach and PEG today by General Surgery. 06/20: s/p Trach and PEG. Some bleeding overnight s/p X1 dose of Vitamin K. The bleeding resolved this am, H&H remains stable. Attempted a SAT this am, patient went into SVT, HR in the 160-170 which resolved once sedations were resumed. Plan is to continue to sedation for now, attempt to wean off propofol for a RASS goal of 0 to -2. D/C CCM plan is to wean off sedation as tolerated for PST for possible extubation. Okay to use PEGT per Gen. Surgery. Nutrition consulted for TF management, TF to start tonight once current TPN bag is completed. BG remains elevated, continue current SSI and basal for now, will start tapering IV steroids tomorrow. FWF added for hyponatremia. Wean off pressors as tolerated for MAP above 65. Possible transfer to [place] for ENT eval. 06/21: Overnight events and CXR noted. Worsen subcutaneous emphysema and Rt. Pneumo. CT remains in place and intact to cont. wall suction. Patient remains hemodynamically stable, still on low vent setting. will continue to monitor for now. Patient is also tolerating enteral nutrition via PEGT, TPN D/benjamín. H&H is also trending down, no s/s of any active bleeding. Will continue to trend H&H, transfuse if hgb is less than 7. FWF increased for hypernatremia. Still waiting on possible transfer to [place]. 06/22: JEREMIAS overnight. Subcutaneous emphysema is unchanged. CXR with mild improvement. Patient remains hemodynamically stable. Hydralazine added Q8hr for HTN. FWF increased for hypernatremia. Awaiting transfer to [place] for ENT eval. 06/23: Over 70cc from CT overnight, subcutaneous emphysema with mild improvement. Patient is also tolerating PST this am. Repeat CXR in the am. Patient is still hypertensive, will added norvasc for better control. Continue FWF for hypernatremia and electrolytes replacement as needed, repeat labs in the am. Darin in wbcs this am, patient remains afebrile and on IV Abx, most likely due to IV steroids continue to monitor. Continue to taper IV steroids. Hyperglycemia is also improving, continue current SSI and basal for now. 06/24: Patient is anemic today and transfused 1 unit PRBC, hypokalemia and hypophosphatemia repleted, will continue every 6 H/H for now to monitor for bleeding, steroid taper continues, still awaiting transfer to [place], PT/OT consulted, CCM to talk to case management regarding LTAC transfer. 06/25: Patient responded appropriately to yesterday, placed on pressure support trial today. Per CCM hopefully T-piece in the next 24 to 48 hours and will continue decrease steroids further on . Lujan catheter removed today. 06/26: Patient started T-piece trials, H/H remained stable. Surgery plans to remove chest tube once weaned off ventilator. Increasing her water flush given hypernatremia. Hospitalist Physical - Constitutional Vitals: Temp Pulse Resp BP Pulse Ox 99.5 F 109 H 15 144/72 99 06/26/21 16:28 06/26/21 16:30 06/26/21 11:30 06/26/21 16:30 06/26/21 16:30 General appearance: Present: no acute distress, obese - EENT Eyes: Present: PERRL, EOM intact ENT: hearing intact, clear oral mucosa, poor dentition - Neck Neck: Present: normal ROM - Respiratory Respiratory effort: normal Respiratory: bilateral: CTA, diminished - Cardiovascular Rhythm: regular Heart Sounds: Present: S1 & S2. Absent: systolic murmur, diastolic murmur - Extremities Extremities: no ischemia, pulses intact, pulses symmetrical, No edema, normal temperature, normal color Peripheral Pulses: within normal limits - Abdominal General gastrointestinal: soft, non-tender, non-distended, normal bowel sounds - Integumentary Integumentary: Present: warm, dry - Psychiatric Psychiatric: cooperative - Neurologic Neurologic: CNII-XII intact, no focal deficits, moves all extremities - Allied Health Allied health notes reviewed: nursing, RT, social work HEART Score - HEART Score Troponin: Troponin T < 0.010 ng/mL (0.00-0.029) 06/11/21 23:21 Results - Labs CBC & Chem 7: 06/26/21 05:29 06/26/21 05:29 Labs: Laboratory Last Values WBC 16.2 K/mm3 (4.5-11.0) H 06/26/21 05:29 RBC 3.03 M/mm3 (3.65-5.03) L 06/26/21 05:29 Hgb 8.0 gm/dl (10.1-14.3) L 06/26/21 05:29 Hct 25.1 % (30.3-42.9) L 06/26/21 05:29 MCV 83 fl (79-97) 06/26/21 05:29 MCH 26 pg (28-32) L 06/26/21 05:29 MCHC 32 % (30-34) 06/26/21 05:29 RDW 23.2 % (13.2-15.2) H 06/26/21 05:29 Plt Count 274 K/mm3 (140-440) 06/26/21 05:29 Lymph % (Auto) 3.5 % (13.4-35.0) L 06/21/21 04:42 [place] % (Auto) 11.7 % (0.0-7.3) H 06/21/21 04:42 Eos % (Auto) 0.0 % (0.0-4.3) 06/21/21 04:42 Baso % (Auto) 0.1 % (0.0-1.8) 06/21/21 04:42 Lymph # (Auto) 0.5 K/mm3 (1.2-5.4) L 06/21/21 04:42 [place] # (Auto) 1.8 K/mm3 (0.0-0.8) H 06/21/21 04:42 Eos # (Auto) 0.0 K/mm3 (0.0-0.4) 06/21/21 04:42 Baso # (Auto) 0.0 K/mm3 (0.0-0.1) 06/21/21 04:42 Add Manual Diff Complete 06/13/21 Unknown Total Counted 100 06/13/21 Unknown Seg Neutrophils % 84.7 % (40.0-70.0) H 06/21/21 04:42 Seg Neuts % (Manual) 88.0 % (40.0-70.0) H 06/13/21 Unknown Band Neutrophils % 2.0 % 06/13/21 Unknown Lymphocytes % (Manual) 4.0 % (13.4-35.0) L 06/13/21 Unknown Reactive Lymphs % (Man) 0 % 06/13/21 Unknown Monocytes % (Manual) 6.0 % (0.0-7.3) 06/13/21 Unknown Eosinophils % (Manual) 0 % (0.0-4.3) 06/13/21 Unknown Basophils % (Manual) 0 % (0.0-1.8) 06/13/21 Unknown Metamyelocytes % 0 % 06/13/21 Unknown Myelocytes % 0 % 06/13/21 Unknown Promyelocytes % 0 % 06/13/21 Unknown Blast Cells % 0 % 06/13/21 Unknown Nucleated RBC % Not Reportable 06/13/21 Unknown Seg Neutrophils # 12.8 K/mm3 (1.8-7.7) H 06/21/21 04:42 Seg Neutrophils # Man 19.8 K/mm3 (1.8-7.7) H 06/13/21 Unknown Band Neutrophils # 0.5 K/mm3 06/13/21 Unknown Lymphocytes # (Manual) 0.9 K/mm3 (1.2-5.4) L 06/13/21 Unknown Abs React Lymphs (Man) 0.0 K/mm3 06/13/21 Unknown Monocytes # (Manual) 1.4 K/mm3 (0.0-0.8) H 06/13/21 Unknown Eosinophils # (Manual) 0.0 K/mm3 (0.0-0.4) 06/13/21 Unknown Basophils # (Manual) 0.0 K/mm3 (0.0-0.1) 06/13/21 Unknown Metamyelocytes # 0.0 K/mm3 06/13/21 Unknown Myelocytes # 0.0 K/mm3 06/13/21 Unknown Promyelocytes # 0.0 K/mm3 06/13/21 Unknown Blast Cells # 0.0 K/mm3 06/13/21 Unknown WBC Morphology Not Reportable 06/13/21 Unknown Hypersegmented Neuts Not Reportable 06/13/21 Unknown Hyposegmented Neuts Not Reportable 06/13/21 Unknown Hypogranular Neuts Not Reportable 06/13/21 Unknown Smudge Cells Not Reportable 06/13/21 Unknown Toxic Granulation 2+ 06/13/21 Unknown Toxic Vacuolation Not Reportable 06/13/21 Unknown Dohle Bodies Not Reportable 06/13/21 Unknown Pelger-Huet Anomaly Not Reportable 06/13/21 Unknown Dennis Rods Not Reportable 06/13/21 Unknown Platelet Estimate Consistent w auto 06/13/21 Unknown Clumped Platelets Not Reportable 06/13/21 Unknown Plt Clumps, EDTA Not Reportable 06/13/21 Unknown Large Platelets Not Reportable 06/13/21 Unknown Giant Platelets Not Reportable 06/13/21 Unknown Platelet Satelliting Not Reportable 06/13/21 Unknown Plt Morphology Comment Not Reportable 06/13/21 Unknown RBC Morphology Not Reportable 06/13/21 Unknown Dimorphic RBCs Not Reportable 06/13/21 Unknown Polychromasia Few 06/13/21 Unknown Hypochromasia 2+ 06/13/21 Unknown Poikilocytosis Not Reportable 06/13/21 Unknown Anisocytosis 1+ 06/13/21 Unknown Microcytosis Not Reportable 06/13/21 Unknown Macrocytosis Not Reportable 06/13/21 Unknown Spherocytes Not Reportable 06/13/21 Unknown Pappenheimer Bodies Not Reportable 06/13/21 Unknown Sickle Cells Not Reportable 06/13/21 Unknown Target Cells Not Reportable 06/13/21 Unknown Tear Drop Cells Not Reportable 06/13/21 Unknown Ovalocytes Not Reportable 06/13/21 Unknown Stomatocytes Few 06/12/21 01:45 Helmet Cells Not Reportable 06/13/21 Unknown [place] Bodies Not Reportable 06/13/21 Unknown [place] Rings Not Reportable 06/13/21 Unknown Nelsy Cells Not Reportable 06/13/21 Unknown Bite Cells Not Reportable 06/13/21 Unknown Crenated Cell Not Reportable 06/13/21 Unknown Elliptocytes Not Reportable 06/13/21 Unknown Acanthocytes (Spur) Not Reportable 06/13/21 Unknown Rouleaux Not Reportable 06/13/21 Unknown Hemoglobin C Crystals Not Reportable 06/13/21 Unknown Schistocytes Not Reportable 06/13/21 Unknown Malaria parasites Not Reportable 06/13/21 Unknown Edin Bodies Not Reportable 06/13/21 Unknown Hem Pathologist Commnt No 06/13/21 Unknown PT 18.3 Sec. (12.2-14.9) H 06/20/21 04:33 INR 1.37 (0.87-1.13) H 06/20/21 04:33 APTT 26.4 Sec. (24.2-36.6) 06/13/21 Unknown Fibrinogen 546 mg/dl (211-480) H 06/13/21 Unknown D-Dimer 1244.63 ng/mlDDU (0-234) H 06/13/21 Unknown ABG pH 7.426 pH Units (7.350-7.450) 06/21/21 04:20 POC ABG pCO2 25.6 mmHg (32.0-48.0) L 06/13/21 04:31 ABG pCO2 35.1 mm Hg 06/21/21 04:20 POC ABG pO2 138.8 mmHg (83-108) H 06/13/21 04:31 ABG pO2 98.5 mm Hg (80.0-90.0) H 06/21/21 04:20 POC ABG HCO3 21.4 06/13/21 04:31 ABG HCO3 22.6 mmol/L (20.0-26.0) 06/21/21 04:20 ABG O2 Saturation 97.7 % (95.0-99.0) 06/21/21 04:20 ABG O2 Content 9.9 (0.0-44) 06/21/21 04:20 POC ABG Base Excess -0.7 06/13/21 04:31 ABG Base Excess -1.6 mmol/L (-2.0-3.0) 06/21/21 04:20 ABG Hemoglobin 7.2 gm/dl (12.0-16.0) L 06/21/21 04:20 ABG Oxyhemoglobin 98.1 (94-98) H 06/13/21 04:31 ABG Carboxyhemoglobin 1.7 % (0.0-5.0) 06/21/21 04:20 ABG Methemoglobin 0.5 % (0.0-1.5) 06/21/21 04:20 Oxyhemoglobin 95.5 % (95.0-99.0) 06/21/21 04:20 Carboxyhemoglobin 0.8 (0.5-1.5) 06/13/21 04:31 FiO2 30 % 06/21/21 04:20 FiO2 % 40.0 06/13/21 04:31 Sodium 150 mmol/L (137-145) H 06/26/21 05:29 Potassium 3.8 mmol/L (3.6-5.0) 06/26/21 05:29 Chloride 114.8 mmol/L (98-107) H 06/26/21 05:29 Carbon Dioxide 24 mmol/L (22-30) 06/26/21 05:29 Anion Gap 15 mmol/L 06/26/21 05:29 BUN 29 mg/dL (7-17) H 06/26/21 05:29 Creatinine 0.9 mg/dL (0.6-1.2) 06/26/21 05:29 Estimated GFR > 60 ml/min 06/26/21 05:29 BUN/Creatinine Ratio 32 % 06/26/21 05:29 Glucose 229 mg/dL (65-100) H 06/26/21 05:29 POC Glucose 222 mg/dL (70-105) H 06/26/21 15:59 Lactic Acid 5.30 mmol/L (0.7-2.0) H* 06/13/21 15:45 Calcium 8.2 mg/dL (8.4-10.2) L 06/26/21 05:29 Phosphorus 2.70 mg/dL (2.5-4.5) 06/25/21 Unknown Magnesium 2.20 mg/dL (1.7-2.3) 06/25/21 Unknown Total Bilirubin 0.40 mg/dL (0.1-1.2) 06/15/21 03:56 AST 64 units/L (5-40) H 06/15/21 03:56 ALT 106 units/L (7-56) H 06/15/21 03:56 Alkaline Phosphatase 55 units/L (35-129) 06/15/21 03:56 Troponin T < 0.010 ng/mL (0.00-0.029) 06/11/21 23:21 C-Reactive Protein 3.30 mg/dL (0.00-1.30) H 06/16/21 04:32 Total Protein 5.1 g/dL (6.3-8.2) L 06/15/21 03:56 Albumin 2.9 g/dL (3.9-5) L 06/15/21 03:56 Albumin/Globulin Ratio 1.3 % 06/15/21 03:56 Triglycerides 254 mg/dL (2-149) H 06/21/21 04:42 Urine Color Yellow (Yellow) 06/12/21 17:00 Urine Turbidity Clear (Clear) 06/12/21 17:00 Urine pH 5.0 (5.0-7.0) 06/12/21 17:00 Ur Specific [place] 1.035 (1.003-1.030) H 06/12/21 17:00 Urine Protein 30 mg/dl mg/dL (Negative) 06/12/21 17:00 Urine Glucose (UA) 50 mg/dL (Negative) 06/12/21 17:00 Urine Ketones Tr mg/dL (Negative) 06/12/21 17:00 Urine Blood Neg (Negative) 06/12/21 17:00 Urine Nitrite Neg (Negative) 06/12/21 17:00 Urine Bilirubin Neg (Negative) 06/12/21 17:00 Urine Urobilinogen < 2.0 mg/dL (<2.0) 06/12/21 17:00 Ur Leukocyte Esterase Neg (Negative) 06/12/21 17:00 Urine WBC (Auto) < 1.0 /HPF (0.0-6.0) 06/12/21 17:00 Urine RBC (Auto) < 1.0 /HPF (0.0-6.0) 06/12/21 17:00 Urine Creatinine 81.1 mg/dL (0.1-20.0) H 06/15/21 10:40 Urine Sodium 42 mmol/L 06/15/21 10:40 Coronavirus (PCR) Negative (Negative) 06/12/21 09:50 Blood Type O POSITIVE 06/24/21 06:40 Antibody Screen Negative 06/24/21 06:40 Crossmatch See Detail 06/24/21 06:40 Lujan/IV: Voiding Method External Female Catheter Active Medications - Current Medications Current Medications: Generic Name Dose Route Start Last Admin Trade Name Freq PRN Reason Stop Dose Admin Amlodipine Besylate 5 mg 06/23/21 10:00 06/26/21 10:27 Amlodipine 5 Mg Tab PO 5 mg QDAY JOLENE Administration Lipase/Protease/Amylase 1 each 06/19/21 19:20 Lipase 10,500/Protease 25,000/Amylase 43,750 (Units) Dr Ramón FEEDTUBE PRN PRN For Clogged Feeding Tube Atorvastatin Calcium 20 mg 06/22/21 22:00 06/25/21 22:00 Atorvastatin 20 Mg Tab PO 20 mg QHS JOLENE Administration Docusate Sodium 100 mg 06/20/21 10:00 06/26/21 10:28 Docusate Sodium 100 Mg/10 Ml Oral Liqd PO 100 mg BID JOLENE Administration Famotidine 20 mg 06/24/21 22:00 06/26/21 10:27 Famotidine 20 Mg Tab FEEDTUBE 20 mg BID JOLENE Administration Fentanyl 50 mcg 06/20/21 12:00 06/26/21 01:25 Fentanyl 100 Mcg/2 Ml Inj IV 50 mcg Q2HR PRN Administration For CPOT greater than 3 Fentanyl 50 mcg 06/24/21 21:50 Fentanyl 100 Mcg/2 Ml Inj IV Q10MIN PRN ANALGESIA Hydralazine HCl 100 mg 06/22/21 19:00 06/26/21 13:41 Hydralazine 100 Mg Tab FEEDTUBE 100 mg Q8HR JOLENE Administration Hydromorphone HCl 0.5 mg 06/11/21 20:42 06/26/21 13:42 Hydromorphone 1 Mg/1 Ml Inj IV 0.5 mg Q3H PRN Administration Pain , Severe (7-10) NORepinephrine/NS 8 MG-250 ML 8 mg in 250 mls @ 3.75 mls/hr 06/12/21 02:00 06/20/21 12:13 Norepinephrine/Ns 8 Mg-250 Ml (Double Conc) IV 0 mcg/min TITRATE JOLENE 0 mls/hr Titration Protocol 2 MCG/MIN Fentanyl Citrate 2,000 mcg in 100 mls @ 5.466 mls/hr 06/24/21 22:00 06/25/21 09:30 Fentanyl Drip Premix IV 0 mcg/kg/hr TITR JOLENE 0 mls/hr Titration Protocol 1 MCG/KG/HR Piperacillin Sod/Tazobactam Sod 4.5 gm in 100 mls @ 200 mls/hr 06/25/21 12:00 06/26/21 13:41 Zosyn/Ns 4.5gm/100ml IV 200 mls/hr Q6HR JOLENE Administration Protocol Insulin Glargine 25 units 06/19/21 10:00 06/26/21 10:27 Insulin Glargine 100 Units/Ml SUB-Q 25 units BID JOLENE Administration Insulin Human Lispro 0 unit 06/12/21 12:00 06/26/21 13:42 Insulin Lispro 100 Unit/Ml SUB-Q 4 unit Q6HR JOLENE Administration Protocol Insulin Human Lispro 3 unit 06/26/21 12:00 06/26/21 13:41 Insulin Lispro 100 Unit/Ml SUB-Q 3 unit Q6HR JOLENE Administration Labetalol HCl 10 mg 06/21/21 18:00 06/23/21 00:22 Labetalol 20 Mg/4 Ml Inj IV 10 mg Q4HR PRN Administration Hypertension Methylprednisolone Sodium Succinate 40 mg 06/23/21 10:00 06/26/21 10:27 Methylprednisolone Sod Succinate 40 Mg/1 Ml Inj IV 40 mg Q12HR JOLENE Administration Metoclopramide HCl 10 mg 06/11/21 20:42 Metoclopramide 10 Mg/2 Ml Inj IV Q6H PRN Nausea And Vomiting Ondansetron HCl 4 mg 06/11/21 20:42 Ondansetron 4 Mg/2 Ml Inj IV Q3H PRN Nausea And Vomiting Senna 17.6 mg 06/20/21 10:00 06/26/21 10:28 Sennosides Oral Liqd 8.8 Mg/5 Ml Oral Liqd PO 17.6 mg Q12HR JOLENE Administration Simple Syrup 15 ml 06/19/21 19:20 Simple Syrup 15 Ml FEEDTUBE PRN PRN Hypoglycemia Simple Syrup 30 ml 06/19/21 19:20 Simple Syrup 15 Ml FEEDTUBE PRN PRN Hypoglycemia Sodium Bicarbonate 325 mg 06/19/21 19:20 Sodium Bicarbonate 325 Mg Tab FEEDTUBE PRN PRN For Clogged Feeding Tube Sodium Chloride 10 ml 06/11/21 22:00 06/26/21 10:27 Sodium Chloride 0.9% 10 Ml Flush Syringe IV 10 ml BID JOLENE Administration Sodium Chloride 10 ml 06/11/21 20:42 Sodium Chloride 0.9% 10 Ml Flush Syringe IV PRN PRN LINE FLUSH Nutrition/Malnutrition Assess - Dietary Evaluation Nutrition/Malnutrition Findings: Nutrition Notes Start: 06/16/21 12:10 Freq: Status: Active Protocol: Document 06/23/21 09:54 CANDIDO (Rec: 06/23/21 10:20 CANDIDO [id number]) Nutrition Notes Initial or Follow up Reassessment Current Diagnosis Diabetes,Sepsis,Hypertension, Respiratory Failure Other Pertinent Diagnosis Jeremiah's Angina, (R) Pneumothorax, Coagulopathy, s/ pCardiac Arrest, Gout... Current Diet TF-Vital AF 1.2 Quan @ 50 ml/hr (since D 06/21). Labs/Tests 06/22: Na 151, Cl 118.7, BUN 57, Glu 238, Ca 8.0, Mg 2.7. Pertinent Medications 06/23: Insulin, others nutritionally unremarkable. Height 5 ft 8 in Weight 109.316 kg [place] Body Weight (kg) 63.63 BMI 36.6 Weight change and time frame No body weight change reported . Weight Status Obese Subjective/Other Information RD consult for write/manage TF . TF continues as prescribed. Pt continues on Mechanical Ventilation, but is awake and responsive. Pt awaiting transfer to tertiary center. Pt continues with hypernatremia. Percent of energy/protein needs met: Prescribed Vital AF 1.2 Quan @ 50 ml/hr provides for energy/ protein needs (1,440 Kcal/90 g ) during LOS; 105% Kcal and 71 % AA. Burn Absent Trauma Absent GI Symptoms Other Difficulty In Swallowing,Chewing Food Allergy No Skin Integrity/Comment Surgical wounds. Current % PO Other Minimum of two criteria No #1 Nutrition Diagnosis Inadequate oral intake Diagnosis Progress(for reassessment Continues documentation) Is patient on ventilator? Yes Is Patient Ambulatory and/or Out of Bed No REE-([facility]-confined to bed) 0635.240 Calculation Used for Recommendations 65-70% energy needs Additional Notes Energy needs: 1280-1379kcal/ day Pro needs 2g/kg IBW: 127g/day Fluid needs 1ml/kcal Nutrition Intervention Nutrition Support: Continue Vital AF 1.2 Quan @ 50 ml/hr. Flush: 200 ml water Q 4 hr. When hypernatermia resolved, provide 80 ml water flush Q 4 hr. Kcal 1,440 Protein (gm) 90 Carbohydrates (gm) 133 Fat (gm) 65 Fluid (mL) 973 Fiber (gm) 6 % RDI: 105% Kcal; 71% AA. Goal #1 Provide at least 75% of energy /protein needs through Enteral Feeding during LOS. Goal #2 Maintain body weight within +/ -3% of admission body weight during LOS. Follow-Up By: 06/27/21 Additional Comments Continue monitoring Mechanical Ventilation, Na/Flush, TF tolerance and BM.
--- NOTE | 2021-06-26 17:39 | Progress Note ---
Assessment and Plan Cultures: 06/12/2021 blood cultures: no growth A/P: 76-year-old female with diabetes, hypertension, gout was admitted to the hospital on 06/11/2021 with swelling of the submandibular region, tongue and difficulty breathing, labs also revealed severe coagulopathy due to Coumadin. 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 Shock resolved. s/p tracheostomy and PEG tube placement 06/19/2021. #Acute respiratory failure: on the vent #Right-sided pneumothorax: s/p chest tube. #Diabetes mellitus, uncontrolled #Coagulopathy: Secondary to Coumadin. #Acute blood loss anemia Recs: -continue Zosyn -steroid taper per pulm/ICU -awaiting transfer to [place] for ENT eval -Ongoing leukocytosis likely secondary to steroids Sinai Small MD [facility] ([facility] O: [phone] F: [phone] Subjective Date of service: 06/26/21 Interval history: Afebrile, white count remains elevated to 16.2. Cultures remain negative. Remains on the vent. Objective - Exam Narrative Exam: Physical Exam: Constitutional: sedated, on the vent Head, Ears, Nose: Normocephalic, atraumatic. External ears, nose normal Eyes: Conjunctivae/corneas clear. No icterus. No ptosis. Oral: trach Cardiovascular: S1, S2 + Respiratory: AE reduced, right-sided chest tube. GI: Soft, bowel sounds +, PEG + Musculoskeletal: No pedal edema, no cyanosis. Skin: No rash or abscess Hem/Lymphatic: No palpable cervical or supraclavicular nodes. No lymphangitis Psych: no agitation Neurological: sedated, on the vent, exam limited - Constitutional Vitals: Vital Signs Temp Pulse Resp BP Pulse Ox 99.5 F 109 H 15 144/72 99 06/26/21 16:28 06/26/21 16:30 06/26/21 11:30 06/26/21 16:30 06/26/21 16:35 Temperature -Last 24 Hours Temperature 99.5 F Temperature 98.9 F Temperature 98.4 F Temperature 98.0 F Temperature 98.5 F - Labs CBC & Chem 7: 06/26/21 05:29 06/26/21 05:29 Labs: Abnormal lab results 06/25/21 06/26/21 06/26/21 Range/Units 23:39 05:22 05:29 WBC 16.2 H (4.5-11.0) K/mm3 RBC 3.03 L (3.65-5.03) M/mm3 Hgb 8.0 L (10.1-14.3) gm/dl Hct 25.1 L (30.3-42.9) % MCH 26 L (28-32) pg RDW 23.2 H (13.2-15.2) % Sodium (137-145) mmol/L Chloride (98-107) mmol/L BUN (7-17) mg/dL Glucose (65-100) mg/dL POC Glucose 187 H 211 H (70-105) mg/dL Calcium (8.4-10.2) mg/dL 06/26/21 06/26/21 06/26/21 Range/Units 05:29 11:05 15:59 WBC (4.5-11.0) K/mm3 RBC (3.65-5.03) M/mm3 Hgb (10.1-14.3) gm/dl Hct (30.3-42.9) % MCH (28-32) pg RDW (13.2-15.2) % Sodium 150 H (137-145) mmol/L Chloride 114.8 H (98-107) mmol/L BUN 29 H (7-17) mg/dL Glucose 229 H (65-100) mg/dL POC Glucose 213 H 222 H (70-105) mg/dL Calcium 8.2 L (8.4-10.2) mg/dL
[2021-06-27] MEDS: PIPERACIL/TAZOBACTA 4.5/NS 100 4.5 GM/100 ML VIAL IV SCH ×5 (00:02→23:59)
[2021-06-27] MEDS: INSULIN LISPRO 100 UNIT/ML SUB-Q SCH ×8 (00:04→17:44)
[2021-06-27] MEDS: FREE WATER PO SCH ×5 (02:15→21:25)
[2021-06-27 05:18] LABS: Hematocrit TNR % (30.3-42.9); Hemoglobin TNR gm/dl (10.1-14.3); Mean Corpuscular HGB Conc TNR % (30-34); Mean Corpuscular Volume TNR fl (79-97); Mean Platelet Volume TNR fl (6-12); Platelet Count TNR K/mm3 (140-440); Red Blood Count TNR M/mm3 (3.65-5.03); Red Cell Distribution Width TNR % (13.2-15.2)
[2021-06-27 05:25] LABS: Hematocrit 24.6 % (30.3-42.9); Hemoglobin 8.1 gm/dl (10.1-14.3); Mean Corpuscular HGB Conc 33 % (30-34); Mean Corpuscular Volume 83 fl (79-97); Platelet Count 215 K/mm3 (140-440); Red Blood Count 2.96 M/mm3 (3.65-5.03)
[2021-06-27 05:42] LABS: BUN/Creatinine Ratio 29; Blood Urea Nitrogen 26 mg/dL (7-17); Calcium 7.8 mg/dL (8.4-10.2); Hemolysis Index 1
[2021-06-27] MEDS: hydrALAZINE 100 MG TAB FEEDTUBE SCH ×3 (06:01→21:21)
[2021-06-27] MEDS: HYDROmorphone 1 MG/1 ML INJ IV PRN ×2 (06:18→17:44)
--- NOTE | 2021-06-27 07:50 | Progress Note ---
Assessment and Plan Patient on the ventilator through tracheostomy. She has a #[address] She is much more awake today and on previous days. Vital signs appear stable. Hemoglobin was notably low yesterday. After 1 unit of blood is hemoglobin of 8 hematocrit 23. Nursing is not visualizing any external signs of bleeding. Chest x-rays are showing improvement of right-sided pneumothorax. Trial of T- piece is progressing.. As the patient is weaned off of the ventilator the chest tube will be addressed and and removed. Transfer to [place] for ENT evaluation is now into the second week of waiting. Patient may well be cared for during this admission discharged and then evaluated as an outpatient. Subjective Date of service: 06/27/21 Patient Reports: Positive: no new complaints Narrative: Patient progressing on T-piece. Would encourage respiratory to begin training patient on self-care for trach. Again this is a #10 Shiley with fenestration. Acquisition of plugs for a #10 Shiley is in progress. Objective Vital Signs - 12hr 06/26/21 06/26/21 06/26/21 19:50 20:00 20:30 Temperature 97.9 F Pulse Rate 97 H 115 H 90 Pulse Rate [ 105 H From Monitor] Respiratory 22 20 15 Rate Blood Pressure 170/84 160/92 O2 Sat by Pulse 100 100 100 Oximetry 06/26/21 06/26/21 06/26/21 21:00 21:05 21:30 Temperature Pulse Rate 82 97 H 85 Pulse Rate [ From Monitor] Respiratory 16 16 Rate Blood Pressure 144/81 178/83 171/80 O2 Sat by Pulse 100 100 100 Oximetry 06/26/21 06/26/21 06/26/21 22:00 22:30 23:00 Temperature Pulse Rate 98 H 82 98 H Pulse Rate [ From Monitor] Respiratory 15 27 H 29 H Rate Blood Pressure 180/96 162/69 149/67 O2 Sat by Pulse 100 100 98 Oximetry 06/26/21 06/27/21 06/27/21 23:30 00:00 00:30 Temperature 98 F Pulse Rate 93 H 95 H 108 H Pulse Rate [ 105 H From Monitor] Respiratory 19 23 17 Rate Blood Pressure 166/63 168/67 162/65 O2 Sat by Pulse 97 96 98 Oximetry 06/27/21 06/27/21 06/27/21 00:53 01:00 01:07 Temperature Pulse Rate 102 H 84 85 Pulse Rate [ From Monitor] Respiratory 27 H 21 Rate Blood Pressure 169/67 143/59 143/59 O2 Sat by Pulse 96 100 Oximetry 06/27/21 06/27/21 06/27/21 01:30 02:00 02:30 Temperature Pulse Rate 82 94 H 98 H Pulse Rate [ From Monitor] Respiratory 31 H 18 36 H Rate Blood Pressure 151/61 165/70 155/68 O2 Sat by Pulse 97 96 97 Oximetry 06/27/21 06/27/21 06/27/21 03:00 03:30 04:00 Temperature 98.9 F Pulse Rate 98 H 94 H 93 H Pulse Rate [ 94 H From Monitor] Respiratory 21 16 23 Rate Blood Pressure 145/62 136/73 O2 Sat by Pulse 98 97 100 Oximetry 06/27/21 06/27/21 06/27/21 04:01 04:31 05:00 Temperature Pulse Rate 87 91 H 81 Pulse Rate [ From Monitor] Respiratory 13 17 20 Rate Blood Pressure 131/71 131/71 130/71 O2 Sat by Pulse 96 100 97 Oximetry 06/27/21 06/27/21 06/27/21 05:01 05:31 06:01 Temperature Pulse Rate 87 80 79 Pulse Rate [ From Monitor] Respiratory 16 14 15 Rate Blood Pressure 130/71 130/71 114/78 O2 Sat by Pulse 99 100 97 Oximetry 06/27/21 07:16 Temperature 97.9 F Pulse Rate Pulse Rate [ From Monitor] Respiratory Rate Blood Pressure O2 Sat by Pulse Oximetry - Labs 06/27/21 04:15 06/27/21 04:15 Diabetes panel 06/27/21 Range/Units 04:15 Sodium 150 H (137-145) mmol/L Potassium 3.6 (3.6-5.0) mmol/L Chloride 113.8 H (98-107) mmol/L Carbon Dioxide 24 (22-30) mmol/L BUN 26 H (7-17) mg/dL Creatinine 0.9 (0.6-1.2) mg/dL Glucose 246 H (65-100) mg/dL Calcium 7.8 L (8.4-10.2) mg/dL Calcium panel 06/27/21 Range/Units 04:15 Calcium 7.8 L (8.4-10.2) mg/dL Phosphorus 2.90 (2.5-4.5) mg/dL Pituitary panel 06/27/21 Range/Units 04:15 Sodium 150 H (137-145) mmol/L Potassium 3.6 (3.6-5.0) mmol/L Chloride 113.8 H (98-107) mmol/L Carbon Dioxide 24 (22-30) mmol/L BUN 26 H (7-17) mg/dL Creatinine 0.9 (0.6-1.2) mg/dL Glucose 246 H (65-100) mg/dL Calcium 7.8 L (8.4-10.2) mg/dL Adrenal panel 06/27/21 Range/Units 04:15 Sodium 150 H (137-145) mmol/L Potassium 3.6 (3.6-5.0) mmol/L Chloride 113.8 H (98-107) mmol/L Carbon Dioxide 24 (22-30) mmol/L BUN 26 H (7-17) mg/dL Creatinine 0.9 (0.6-1.2) mg/dL Glucose 246 H (65-100) mg/dL Calcium 7.8 L (8.4-10.2) mg/dL
[2021-06-27] MEDS: INSULIN GLARGINE 100 UNITS/ML SUB-Q SCH ×2 (10:00→21:24)
[2021-06-27] MEDS: DOCUSATE SODIUM 100 MG/10 ML ORAL LIQD PO SCH ×2 (10:01→21:21)
[2021-06-27] MEDS: SENNOSIDES ORAL LIQD 8.8 MG/5 ML ORAL LIQD PO SCH ×2 (10:01→21:23)
[2021-06-27] MEDS: FAMOTIDINE 20 MG TAB FEEDTUBE SCH ×2 (10:01→21:21)
[2021-06-27] MEDS: methylPREDNISolone Sod Succinate 40 MG/1 ML INJ IV SCH (10:01)
[2021-06-27] MEDS: amLODIPine 5 MG TAB PO SCH (10:14)
--- NOTE | 2021-06-27 11:10 | Progress Note ---
Assessment and Plan Cultures: 06/12/2021 blood cultures: no growth A/P: 76-year-old female with diabetes, hypertension, gout was admitted to the hospital on 06/11/2021 with swelling of the submandibular region, tongue and difficulty breathing, labs also revealed severe coagulopathy due to Coumadin. 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 Shock resolved. s/p tracheostomy and PEG tube placement 06/19/2021. #Acute respiratory failure: s/p trach #Right-sided pneumothorax: s/p chest tube. #Diabetes mellitus, uncontrolled #Coagulopathy: Secondary to Coumadin. #Acute blood loss anemia Recs: -continue Zosyn -continue on steroid taper per pulm/ICU -if leucocytosis persists after being off steroids, obtain CT neck with IV contrast to rule out any abscess Silvana Barros MD, FACP, [facility] O: [phone] F: [phone] Subjective Date of service: 06/27/21 Interval history: No fever. Awake and alert, on T-piece. Objective - Exam Narrative Exam: Physical Exam: Constitutional: awake, alert, on T-piece Head, Ears, Nose: Normocephalic, atraumatic. External ears, nose normal Eyes: Conjunctivae/corneas clear. No icterus. No ptosis. Oral: trach Cardiovascular: S1, S2 + Respiratory: AE fair b/l, R chest tube + GI: Soft, bowel sounds +, PEG + Musculoskeletal: pedal edema + Skin: No rash or abscess Hem/Lymphatic: No palpable cervical or supraclavicular nodes. No lymphangitis Psych: no agitation Neurological: awake, alert, responsive - Constitutional Vitals: Vital Signs Temp Pulse Resp BP Pulse Ox 97.9 F 97 H 16 170/81 99 06/27/21 07:16 06/27/21 10:31 06/27/21 10:00 06/27/21 10:31 06/27/21 10:31 Temperature -Last 24 Hours Temperature 97.9 F Temperature 98.9 F Temperature 98 F Temperature 97.9 F Temperature 99.5 F Temperature 98.9 F - Labs CBC & Chem 7: 06/27/21 04:15 06/27/21 04:15 Labs: Abnormal lab results 06/26/21 06/26/21 06/26/21 Range/Units 11:05 15:59 22:00 WBC (4.5-11.0) K/mm3 RBC (3.65-5.03) M/mm3 Hgb (10.1-14.3) gm/dl Hct (30.3-42.9) % MCH (28-32) pg RDW (13.2-15.2) % Sodium (137-145) mmol/L Chloride (98-107) mmol/L BUN (7-17) mg/dL Glucose (65-100) mg/dL POC Glucose 213 H 222 H 161 H (70-105) mg/dL Calcium (8.4-10.2) mg/dL 06/26/21 06/27/21 06/27/21 Range/Units 23:24 04:15 04:15 WBC 14.3 H (4.5-11.0) K/mm3 RBC 2.96 L (3.65-5.03) M/mm3 Hgb 8.1 L (10.1-14.3) gm/dl Hct 24.6 L (30.3-42.9) % MCH 27 L (28-32) pg RDW 23.0 H (13.2-15.2) % Sodium 150 H (137-145) mmol/L Chloride 113.8 H (98-107) mmol/L BUN 26 H (7-17) mg/dL Glucose 246 H (65-100) mg/dL POC Glucose 164 H (70-105) mg/dL Calcium 7.8 L (8.4-10.2) mg/dL 06/27/21 Range/Units 05:44 WBC (4.5-11.0) K/mm3 RBC (3.65-5.03) M/mm3 Hgb (10.1-14.3) gm/dl Hct (30.3-42.9) % MCH (28-32) pg RDW (13.2-15.2) % Sodium (137-145) mmol/L Chloride (98-107) mmol/L BUN (7-17) mg/dL Glucose (65-100) mg/dL POC Glucose 226 H (70-105) mg/dL Calcium (8.4-10.2) mg/dL
--- NOTE | 2021-06-27 11:49 | Progress Note ---
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 06/27/21: Will place chest tube to water seal. Instructed staff if any change in respiratory status, place back on suction and obtain CXR. Otherwise will leave off. Continue T-piece as tolerated. Rehab/alf/LTACH appropriate. STable for transfer if and when bed becomes available. 06/26/21: T-piece today. If off the vent, agree with surgery and removal of chest tube as subq emphysema is improving as well. PT has seen suggested LTACH, however if we are able to wean she may need alf/rehab. Prognosis continues to improve. 06/25/21: Continue PSV as tolerated. Hopeful T-piece in the next 24-48 hours. Will drop steroids down further on . Can switch to daily and even change to oral. PT/OT consult, and follow up recs. May need LTACH vs rehab vs both. Continue to follow. 06/24/21: Daily PSV trials. Maybe ready for T-piece sson. Continue to wean steroids to off. IMS changed to 40q12 which is fine. Continue chest tube until off vent. Still on list for [place] but will discuss with CM about checking into LTACH as patient will need rehab. PT/OT consult. 06/21/21: Continue current level of sedation. Chest tube does not have air leak but there is clear evidence of a PTX on right. Stripped tube at bedside and will repeat CXR in the morning. Hold on weaning sedation for now and hold on PSV trials. May need second chest tube vs vats if PTX worsens or does not resolve. Patient still on list for [place], hopeful they will have a bed soon. Drop steroids to 40q8 starting Thursday. Monitor renal function, likely will improve. Needs more free water. Prognosis still remains guarded. 06/20/21: Restart some sedation. At least pain and maybe diprovan. Would like to wake patient up at some point and attempt some PSV trials. Labs are off this am. Large bump in white count but no fever, also no diff drawn. Could be error vs steroid related but this is in just 24 hours. Will repeat tomorrow. If spikes a temp neves culture as well. Small bump in Cr but still in normal range. Will watch. Now that peg in place, tube feeds and free water flushes. Still on list for [place]. Patient has been steroids greater than 7 days so will have to wean. Can drop to 60q8 starting tomorrow. Prognosis still remains guarded. 06/19/21: surgery to attempt trach and peg today. Still will ask to keep on transfer list for [place] as her other issues still need to be addressed. If able to place peg, can stop clinimix, give free water and start tube feeds. Prognosis remains guarded. pH better with drop in tidal volume. 06/18/21: [facility] has agreed to accept but no ICU beds available at this time. Spoke with Dr. Vasquez yesterday and Dr. Patricia spoke with ENT there. Spoke with RT this am and patient did have a leak when cuff let down and her tidal volumes dropped to below 100. Patient remains on abx and steriods. Will consider lightening sedation tomorrow and seeing how patient does if cuff leak persists. Dropped tidal volumes to 450. Continue PPN for now. 06/17/21: spoke with surgery and they feel transfer is reasonable. I have lana ched out to [place] and IMS has spoken with someone from [facility]. Await to hear back from them. Continue supportive measures and adequate sedation for pain control. No PSV trials as of yet. Blood sugar control, increase lantus. Most likely secondary to steroids. Continue abx therapy. Guarded prognosis. 06/16/21: Renal function improved with fluids. IMS to give more fluids (LR) today which I agree with. FeNa is =0.7. Should be fluid responsive. Continue clinimix. Needs long acting insulin. Agree with lantus. Asked nursing to increase sedation now that we know that patient's mental status is stable. Picc today. Air leak test vs Neck CT on tomorrow. 06/15/21: Hopeful with worsening renal function ( likely from code on yesterday) that sedatives are just lingering from that. Still making good urine but output has fallen off. Will send urine sodium and urine cr to check Fena. Most likely this is prerenal. ordered renal ultrasound as well. Continue abx and steroids. Will start clinimix today. This should help with the free water piece. Will give another liter bolus of LR right now. Keep sedation off for now. Guarded prognosis. 06/14/21: Will discuss with surgery future plans. They have ordered steroids to help with inflammation and abx continue. All others appears stable and no acute evidence of bleeding at this time. Follow up surgery recs if any new ones. Guarded prognosis. 06/13/21: Patient to back to OR today. BLood transfusion. Will send DIC panel and may need to given cryo if over 6 units of PRBC's given. Patient will likely need trach and peg as we need to address nutrition. Chest tube placed, large bore now. Patient now with right sided effusion. Hemothorax???. Will continue to monitor output. Needs picc line as femoral should come out soon. Continue pressors. Continue sedation for pain control and comfort. Guarded prognosis. Surgery comfortable with neck and current situation so they have not request transfer. 1. Placed right femoral central line. pressors can run through this. 2. Repeat chemistry stat given bicarb of 8 and blood sugar of greater than 600. Ordering FSBS now. Earlier bicarb was 25. If accurate will need bicarb drip and vasopressin but not sure as pH on blood gas was normal done around the same time. 3. Coagulopathy is improving. INR down to 4.55 and PTT and pT improving. Will continue to give FFP. Ordered more vitamin K. H/H is stable but patient is oozing from neck and mouth. 4. Vasopressor for blood pressure. Need to keep map 65 and greater 5. Lujan is needed for accurate I/O 6. Surgery called by IMS about current CT situation. They state they will reassess in the am. I have reviewed the images myself. If I can position the patient safely without compromising the airway after adequate sedation, may consider placing chest tube now as INR is better and FFP is hanging. Patient is morbidly obese so shits could move the ET tube so if not safe, will wait until surgery comes in the morning. 7. Would not attempt to pass OG or NG tube given current situation in neck 8. Will discuss with surgery tomorrow but I feel this patient should be transferred to a tertiary care facility with ENT as we do not have that service here. CCT 31 minutes. Subjective Date of service: 06/27/21 Interval history: No acute events. Tolerating T-piece since yesterday. Objective Vital Signs - 12hr 06/27/21 06/27/21 06/27/21 00:00 00:30 00:53 Temperature 98 F Pulse Rate 95 H 108 H 102 H Pulse Rate [ 105 H From Monitor] Respiratory 23 17 Rate Blood Pressure 168/67 162/65 169/67 O2 Sat by Pulse 96 98 Oximetry O2 Sat by Pulse Oximetry [ Assessment] 06/27/21 06/27/21 06/27/21 01:00 01:07 01:30 Temperature Pulse Rate 84 85 82 Pulse Rate [ From Monitor] Respiratory 27 H 21 31 H Rate Blood Pressure 143/59 143/59 151/61 O2 Sat by Pulse 96 100 97 Oximetry O2 Sat by Pulse Oximetry [ Assessment] 06/27/21 06/27/21 06/27/21 02:00 02:30 03:00 Temperature Pulse Rate 94 H 98 H 98 H Pulse Rate [ From Monitor] Respiratory 18 36 H 21 Rate Blood Pressure 165/70 155/68 145/62 O2 Sat by Pulse 96 97 98 Oximetry O2 Sat by Pulse Oximetry [ Assessment] 06/27/21 06/27/21 06/27/21 03:30 04:00 04:01 Temperature 98.9 F Pulse Rate 94 H 93 H 87 Pulse Rate [ 94 H From Monitor] Respiratory 16 23 13 Rate Blood Pressure 136/73 131/71 O2 Sat by Pulse 97 100 96 Oximetry O2 Sat by Pulse Oximetry [ Assessment] 06/27/21 06/27/21 06/27/21 04:31 05:00 05:01 Temperature Pulse Rate 91 H 81 87 Pulse Rate [ From Monitor] Respiratory 17 20 16 Rate Blood Pressure 131/71 130/71 130/71 O2 Sat by Pulse 100 97 99 Oximetry O2 Sat by Pulse Oximetry [ Assessment] 06/27/21 06/27/21 06/27/21 05:31 06:01 06:31 Temperature Pulse Rate 80 79 92 H Pulse Rate [ From Monitor] Respiratory 14 15 13 Rate Blood Pressure 130/71 114/78 114/78 O2 Sat by Pulse 100 97 100 Oximetry O2 Sat by Pulse Oximetry [ Assessment] 06/27/21 06/27/21 06/27/21 07:01 07:16 07:30 Temperature 97.9 F Pulse Rate 87 Pulse Rate [ From Monitor] Respiratory 22 Rate Blood Pressure 114/78 O2 Sat by Pulse 96 Oximetry O2 Sat by Pulse 100 Oximetry [ Assessment] 06/27/21 06/27/21 06/27/21 07:31 08:00 08:31 Temperature Pulse Rate 88 87 83 Pulse Rate [ From Monitor] Respiratory 12 16 15 Rate Blood Pressure 99/72 105/72 105/72 O2 Sat by Pulse 100 98 100 Oximetry O2 Sat by Pulse Oximetry [ Assessment] 06/27/21 06/27/21 06/27/21 09:01 09:31 10:00 Temperature Pulse Rate 89 73 97 H Pulse Rate [ From Monitor] Respiratory 12 14 16 Rate Blood Pressure 102/72 102/72 108/66 O2 Sat by Pulse 97 100 98 Oximetry O2 Sat by Pulse Oximetry [ Assessment] 06/27/21 06/27/21 06/27/21 10:14 10:31 11:35 Temperature 98.1 F Pulse Rate 91 H 97 H Pulse Rate [ From Monitor] Respiratory Rate Blood Pressure 170/81 170/81 O2 Sat by Pulse 99 Oximetry O2 Sat by Pulse Oximetry [ Assessment] Constitutional: alert, other (on vent trach in place) Eyes: non-icteric ENT: oropharynx moist Neck: other (trach in place) Ascultation: Bilateral: clear Percussion: Bilateral: not dull Cardiovascular: regular rate and rhythm Gastrointestinal: normoactive bowel sounds, soft Integumentary: other (subq emphysema) Extremities: no edema, other (subq emphysema) Neurologic: normal mental status CBC and BMP: 06/28/21 04:00 06/28/21 04:00 ABG, PT/INR, D-dimer: ABG ABG pH 7.426 pH Units (7.350-7.450) 06/21/21 04:20 POC ABG pCO2 25.6 mmHg (32.0-48.0) L 06/13/21 04:31 ABG pCO2 35.1 mm Hg 06/21/21 04:20 POC ABG pO2 138.8 mmHg (83-108) H 06/13/21 04:31 ABG pO2 98.5 mm Hg (80.0-90.0) H 06/21/21 04:20 POC ABG HCO3 21.4 06/13/21 04:31 ABG O2 Saturation 97.7 % (95.0-99.0) 06/21/21 04:20 PT/INR, D-dimer PT 18.3 Sec. (12.2-14.9) H 06/20/21 04:33 INR 1.37 (0.87-1.13) H 06/20/21 04:33 D-Dimer 1244.63 ng/mlDDU (0-234) H 06/13/21 Unknown Abnormal lab findings: Abnormal Labs 06/11/21 06/11/21 06/11/21 15:23 15:23 19:20 WBC 12.0 H RBC Hgb Hct MCV 72 L MCH 21 L RDW 17.5 H Plt Count Lymph % (Auto) 12.9 L [place] % (Auto) 8.6 H Lymph # (Auto) [place] # (Auto) 1.0 H Seg Neutrophils % 77.4 H Seg Neuts % (Manual) Lymphocytes % (Manual) Monocytes % (Manual) Seg Neutrophils # 9.3 H Seg Neutrophils # Man Lymphocytes # (Manual) Monocytes # (Manual) PT INR APTT Fibrinogen D-Dimer ABG pH POC ABG pCO2 POC ABG pO2 ABG pO2 ABG HCO3 ABG O2 Saturation ABG Base Excess ABG Hemoglobin ABG Oxyhemoglobin Oxyhemoglobin Sodium Potassium Chloride Carbon Dioxide BUN Creatinine Glucose 144 H POC Glucose Lactic Acid Calcium Phosphorus Magnesium AST ALT Alkaline Phosphatase C-Reactive Protein Total Protein Albumin Triglycerides Ur Specific [place] Urine Creatinine Crossmatch See Detail 06/11/21 06/11/21 06/11/21 19:29 19:29 23:21 WBC 15.8 H RBC Hgb 9.4 L Hct MCV 72 L MCH 22 L RDW 17.4 H Plt Count Lymph % (Auto) 9.2 L [place] % (Auto) Lymph # (Auto) [place] # (Auto) Seg Neutrophils % 89.0 H Seg Neuts % (Manual) Lymphocytes % (Manual) Monocytes % (Manual) Seg Neutrophils # 14.0 H Seg Neutrophils # Man Lymphocytes # (Manual) Monocytes # (Manual) PT 72.9 H INR 8.18 H* APTT 71.7 H* Fibrinogen D-Dimer ABG pH POC ABG pCO2 POC ABG pO2 ABG pO2 ABG HCO3 ABG O2 Saturation ABG Base Excess ABG Hemoglobin ABG Oxyhemoglobin Oxyhemoglobin Sodium 149 H D Potassium Chloride 124.3 H Carbon Dioxide 8 L* D BUN Creatinine 0.3 L Glucose 628 H* POC Glucose Lactic Acid Calcium 2.4 L* D Phosphorus Magnesium AST ALT < 5 L Alkaline Phosphatase 19 L C-Reactive Protein Total Protein 1.6 L D Albumin 0.8 L Triglycerides Ur Specific [place] Urine Creatinine Crossmatch 06/11/21 06/11/21 06/11/21 23:21 23:22 23:42 WBC RBC Hgb Hct MCV MCH 27 L RDW 22.2 H Plt Count 131 L Lymph % (Auto) [place] % (Auto) Lymph # (Auto) [place] # (Auto) Seg Neutrophils % Seg Neuts % (Manual) Lymphocytes % (Manual) Monocytes % (Manual) Seg Neutrophils # Seg Neutrophils # Man Lymphocytes # (Manual) Monocytes # (Manual) PT 46.3 H INR 4.55 H APTT 54.8 H Fibrinogen D-Dimer ABG pH POC ABG pCO2 POC ABG pO2 325.9 H ABG pO2 ABG HCO3 ABG O2 Saturation ABG Base Excess ABG Hemoglobin 8.0 L ABG Oxyhemoglobin 99.0 H Oxyhemoglobin Sodium Potassium Chloride Carbon Dioxide BUN Creatinine Glucose POC Glucose Lactic Acid Calcium Phosphorus Magnesium AST ALT Alkaline Phosphatase C-Reactive Protein Total Protein Albumin Triglycerides Ur Specific [place] Urine Creatinine Crossmatch 06/12/21 06/12/21 06/12/21 01:45 01:45 01:45 WBC 21.6 H RBC 3.04 L Hgb 6.7 L D Hct 22.4 L D MCV 74 L MCH 22 L RDW 18.9 H Plt Count Lymph % (Auto) [place] % (Auto) Lymph # (Auto) [place] # (Auto) Seg Neutrophils % Seg Neuts % (Manual) 76.0 H Lymphocytes % (Manual) 2.0 L Monocytes % (Manual) 8.0 H Seg Neutrophils # Seg Neutrophils # Man 16.4 H Lymphocytes # (Manual) 0.4 L Monocytes # (Manual) 1.7 H PT 25.4 H INR 2.10 H APTT Fibrinogen D-Dimer ABG pH POC ABG pCO2 POC ABG pO2 ABG pO2 ABG HCO3 ABG O2 Saturation ABG Base Excess ABG Hemoglobin ABG Oxyhemoglobin Oxyhemoglobin Sodium Potassium 5.6 H D Chloride Carbon Dioxide 20 L D BUN Creatinine Glucose 368 H POC Glucose Lactic Acid Calcium 7.1 L D Phosphorus Magnesium AST ALT Alkaline Phosphatase C-Reactive Protein Total Protein 5.3 L D Albumin 3.1 L Triglycerides Ur Specific [place] Urine Creatinine Crossmatch 06/12/21 06/12/21 06/12/21 02:05 04:41 11:05 WBC 14.6 H RBC 3.52 L Hgb 8.5 L Hct 27.7 L MCV MCH 24 L RDW 20.9 H Plt Count Lymph % (Auto) [place] % (Auto) Lymph # (Auto) [place] # (Auto) Seg Neutrophils % Seg Neuts % (Manual) Lymphocytes % (Manual) Monocytes % (Manual) Seg Neutrophils # Seg Neutrophils # Man Lymphocytes # (Manual) Monocytes # (Manual) PT INR APTT Fibrinogen D-Dimer ABG pH POC ABG pCO2 POC ABG pO2 224.6 H ABG pO2 ABG HCO3 ABG O2 Saturation ABG Base Excess ABG Hemoglobin 7.3 L ABG Oxyhemoglobin 98.7 H Oxyhemoglobin Sodium Potassium Chloride Carbon Dioxide BUN Creatinine Glucose POC Glucose 308 H Lactic Acid Calcium Phosphorus Magnesium AST ALT Alkaline Phosphatase C-Reactive Protein Total Protein Albumin Triglycerides Ur Specific [place] Urine Creatinine Crossmatch 06/12/21 06/12/21 06/12/21 11:05 11:05 12:18 WBC RBC Hgb Hct MCV MCH RDW Plt Count Lymph % (Auto) [place] % (Auto) Lymph # (Auto) [place] # (Auto) Seg Neutrophils % Seg Neuts % (Manual) Lymphocytes % (Manual) Monocytes % (Manual) Seg Neutrophils # Seg Neutrophils # Man Lymphocytes # (Manual) Monocytes # (Manual) PT 16.8 H INR 1.23 H APTT Fibrinogen D-Dimer ABG pH POC ABG pCO2 POC ABG pO2 ABG pO2 ABG HCO3 ABG O2 Saturation ABG Base Excess ABG Hemoglobin ABG Oxyhemoglobin Oxyhemoglobin Sodium Potassium Chloride Carbon Dioxide BUN 24 H Creatinine Glucose 324 H POC Glucose 281 H Lactic Acid Calcium 7.5 L Phosphorus Magnesium AST 70 H ALT 57 H Alkaline Phosphatase C-Reactive Protein Total Protein 6.0 L Albumin 3.6 L Triglycerides Ur Specific [place] Urine Creatinine Crossmatch 06/12/21 06/12/21 06/12/21 17:00 17:00 17:00 WBC RBC Hgb 7.5 L Hct 24.0 L MCV MCH RDW Plt Count Lymph % (Auto) [place] % (Auto) Lymph # (Auto) [place] # (Auto) Seg Neutrophils % Seg Neuts % (Manual) Lymphocytes % (Manual) Monocytes % (Manual) Seg Neutrophils # Seg Neutrophils # Man Lymphocytes # (Manual) Monocytes # (Manual) PT 16.0 H INR 1.16 H APTT Fibrinogen D-Dimer ABG pH POC ABG pCO2 POC ABG pO2 ABG pO2 ABG HCO3 ABG O2 Saturation ABG Base Excess ABG Hemoglobin ABG Oxyhemoglobin Oxyhemoglobin Sodium Potassium Chloride Carbon Dioxide BUN Creatinine Glucose POC Glucose Lactic Acid Calcium Phosphorus Magnesium AST ALT Alkaline Phosphatase C-Reactive Protein Total Protein Albumin Triglycerides Ur Specific [place] 1.035 H Urine Creatinine Crossmatch 06/12/21 06/12/21 06/12/21 18:06 23:00 23:05 WBC RBC Hgb 7.6 L Hct 23.5 L MCV MCH RDW Plt Count Lymph % (Auto) [place] % (Auto) Lymph # (Auto) [place] # (Auto) Seg Neutrophils % Seg Neuts % (Manual) Lymphocytes % (Manual) Monocytes % (Manual) Seg Neutrophils # Seg Neutrophils # Man Lymphocytes # (Manual) Monocytes # (Manual) PT INR APTT Fibrinogen D-Dimer ABG pH POC ABG pCO2 POC ABG pO2 ABG pO2 ABG HCO3 ABG O2 Saturation ABG Base Excess ABG Hemoglobin ABG Oxyhemoglobin Oxyhemoglobin Sodium Potassium Chloride Carbon Dioxide BUN Creatinine Glucose POC Glucose 257 H 300 H Lactic Acid Calcium Phosphorus Magnesium AST ALT Alkaline Phosphatase C-Reactive Protein Total Protein Albumin Triglycerides Ur Specific [place] Urine Creatinine Crossmatch 06/13/21 06/13/21 06/13/21 04:31 05:19 07:30 WBC RBC Hgb 6.8 L Hct 21.7 L MCV MCH RDW Plt Count Lymph % (Auto) [place] % (Auto) Lymph # (Auto) [place] # (Auto) Seg Neutrophils % Seg Neuts % (Manual) Lymphocytes % (Manual) Monocytes % (Manual) Seg Neutrophils # Seg Neutrophils # Man Lymphocytes # (Manual) Monocytes # (Manual) PT INR APTT Fibrinogen D-Dimer ABG pH 7.541 H POC ABG pCO2 25.6 L POC ABG pO2 138.8 H ABG pO2 ABG HCO3 ABG O2 Saturation ABG Base Excess ABG Hemoglobin 7.3 L ABG Oxyhemoglobin 98.1 H Oxyhemoglobin Sodium Potassium Chloride Carbon Dioxide BUN Creatinine Glucose POC Glucose 286 H Lactic Acid Calcium Phosphorus Magnesium AST ALT Alkaline Phosphatase C-Reactive Protein Total Protein Albumin Triglycerides Ur Specific [place] Urine Creatinine Crossmatch 0206/13/21 06/13/21 07:30 12:04 14:50 WBC RBC Hgb Hct MCV MCH RDW Plt Count Lymph % (Auto) [place] % (Auto) Lymph # (Auto) [place] # (Auto) Seg Neutrophils % Seg Neuts % (Manual) Lymphocytes % (Manual) Monocytes % (Manual) Seg Neutrophils # Seg Neutrophils # Man Lymphocytes # (Manual) Monocytes # (Manual) PT INR APTT Fibrinogen D-Dimer ABG pH 7.039 L* 7.182 L* POC ABG pCO2 POC ABG pO2 ABG pO2 63.1 L ABG HCO3 17.4 L ABG O2 Saturation 73.4 L ABG Base Excess -12.6 L -7.1 L ABG Hemoglobin 7.7 L 6.9 L ABG Oxyhemoglobin Oxyhemoglobin 71.8 L 93.5 L Sodium Potassium Chloride 108.9 H Carbon Dioxide BUN 28 H Creatinine Glucose 293 H POC Glucose Lactic Acid Calcium 7.2 L Phosphorus Magnesium AST 106 H ALT 92 H Alkaline Phosphatase C-Reactive Protein Total Protein 5.6 L Albumin 3.3 L Triglycerides Ur Specific [place] Urine Creatinine Crossmatch 06/13/21 06/13/21 06/13/21 14:54 15:45 17:34 WBC RBC Hgb Hct MCV MCH RDW Plt Count Lymph % (Auto) [place] % (Auto) Lymph # (Auto) [place] # (Auto) Seg Neutrophils % Seg Neuts % (Manual) Lymphocytes % (Manual) Monocytes % (Manual) Seg Neutrophils # Seg Neutrophils # Man Lymphocytes # (Manual) Monocytes # (Manual) PT INR APTT Fibrinogen D-Dimer ABG pH POC ABG pCO2 POC ABG pO2 ABG pO2 178.4 H ABG HCO3 ABG O2 Saturation 99.1 H ABG Base Excess ABG Hemoglobin 8.0 L ABG Oxyhemoglobin Oxyhemoglobin Sodium Potassium Chloride 107.3 H Carbon Dioxide 19 L BUN 33 H Creatinine 1.5 H Glucose 379 H POC Glucose Lactic Acid 5.30 H* Calcium 6.8 L Phosphorus Magnesium AST ALT Alkaline Phosphatase C-Reactive Protein Total Protein Albumin Triglycerides Ur Specific [place] Urine Creatinine Crossmatch 06/13/21 06/13/21 06/13/21 17:40 23:29 Unknown WBC 22.5 H RBC 3.16 L Hgb 8.0 L Hct 26.0 L MCV MCH 26 L RDW 21.4 H Plt Count Lymph % (Auto) [place] % (Auto) Lymph # (Auto) [place] # (Auto) Seg Neutrophils % Seg Neuts % (Manual) 88.0 H Lymphocytes % (Manual) 4.0 L Monocytes % (Manual) Seg Neutrophils # Seg Neutrophils # Man 19.8 H Lymphocytes # (Manual) 0.9 L Monocytes # (Manual) 1.4 H PT INR APTT Fibrinogen D-Dimer ABG pH POC ABG pCO2 POC ABG pO2 ABG pO2 ABG HCO3 ABG O2 Saturation ABG Base Excess ABG Hemoglobin ABG Oxyhemoglobin Oxyhemoglobin Sodium Potassium Chloride Carbon Dioxide BUN Creatinine Glucose POC Glucose 294 H 288 H Lactic Acid Calcium Phosphorus Magnesium AST ALT Alkaline Phosphatase C-Reactive Protein Total Protein Albumin Triglycerides Ur Specific [place] Urine Creatinine Crossmatch 06/13/21 06/14/21 06/14/21 Unknown 05:39 06:15 WBC RBC 2.93 L Hgb 7.2 L Hct 23.2 L MCV MCH 25 L RDW 21.2 H Plt Count Lymph % (Auto) [place] % (Auto) Lymph # (Auto) [place] # (Auto) Seg Neutrophils % Seg Neuts % (Manual) Lymphocytes % (Manual) Monocytes % (Manual) Seg Neutrophils # Seg Neutrophils # Man Lymphocytes # (Manual) Monocytes # (Manual) PT 17.6 H INR 1.31 H APTT Fibrinogen 546 H D-Dimer 1244.63 H ABG pH POC ABG pCO2 POC ABG pO2 ABG pO2 ABG HCO3 ABG O2 Saturation ABG Base Excess ABG Hemoglobin ABG Oxyhemoglobin Oxyhemoglobin Sodium Potassium Chloride Carbon Dioxide BUN Creatinine Glucose POC Glucose 246 H Lactic Acid Calcium Phosphorus Magnesium AST ALT Alkaline Phosphatase C-Reactive Protein Total Protein Albumin Triglycerides Ur Specific [place] Urine Creatinine Crossmatch 06/14/21 06/14/21 06/14/21 06:15 06:15 09:13 WBC RBC Hgb Hct MCV MCH RDW Plt Count Lymph % (Auto) [place] % (Auto) Lymph # (Auto) [place] # (Auto) Seg Neutrophils % Seg Neuts % (Manual) Lymphocytes % (Manual) Monocytes % (Manual) Seg Neutrophils # Seg Neutrophils # Man Lymphocytes # (Manual) Monocytes # (Manual) PT INR APTT Fibrinogen D-Dimer ABG pH POC ABG pCO2 POC ABG pO2 ABG pO2 183.0 H ABG HCO3 ABG O2 Saturation 99.2 H ABG Base Excess ABG Hemoglobin 6.6 L ABG Oxyhemoglobin Oxyhemoglobin Sodium 147 H Potassium Chloride 112.5 H Carbon Dioxide 21 L BUN 36 H Creatinine 1.4 H Glucose 281 H POC Glucose Lactic Acid Calcium 6.9 L Phosphorus Magnesium AST ALT Alkaline Phosphatase C-Reactive Protein Total Protein Albumin Triglycerides 189 H Ur Specific [place] Urine Creatinine Crossmatch 06/14/21 06/14/21 06/14/21 10:45 12:16 13:30 WBC RBC Hgb 7.1 L Hct 22.3 L MCV MCH RDW Plt Count Lymph % (Auto) [place] % (Auto) Lymph # (Auto) [place] # (Auto) Seg Neutrophils % Seg Neuts % (Manual) Lymphocytes % (Manual) Monocytes % (Manual) Seg Neutrophils # Seg Neutrophils # Man Lymphocytes # (Manual) Monocytes # (Manual) PT INR APTT Fibrinogen D-Dimer ABG pH 7.205 L POC ABG pCO2 POC ABG pO2 ABG pO2 261.3 H ABG HCO3 ABG O2 Saturation 99.4 H ABG Base Excess -7.2 L ABG Hemoglobin 7.6 L ABG Oxyhemoglobin Oxyhemoglobin Sodium Potassium Chloride Carbon Dioxide BUN Creatinine Glucose POC Glucose 174 H Lactic Acid Calcium Phosphorus Magnesium AST ALT Alkaline Phosphatase C-Reactive Protein Total Protein Albumin Triglycerides Ur Specific [place] Urine Creatinine Crossmatch 06/14/21 06/14/21 06/15/21 17:40 18:43 00:06 WBC RBC Hgb Hct MCV MCH RDW Plt Count Lymph % (Auto) [place] % (Auto) Lymph # (Auto) [place] # (Auto) Seg Neutrophils % Seg Neuts % (Manual) Lymphocytes % (Manual) Monocytes % (Manual) Seg Neutrophils # Seg Neutrophils # Man Lymphocytes # (Manual) Monocytes # (Manual) PT INR APTT Fibrinogen D-Dimer ABG pH 7.292 L POC ABG pCO2 POC ABG pO2 ABG pO2 78.8 L ABG HCO3 ABG O2 Saturation ABG Base Excess -5.0 L ABG Hemoglobin 9.1 L ABG Oxyhemoglobin Oxyhemoglobin 93.7 L Sodium Potassium Chloride Carbon Dioxide BUN Creatinine Glucose POC Glucose 182 H 144 H Lactic Acid Calcium Phosphorus Magnesium AST ALT Alkaline Phosphatase C-Reactive Protein Total Protein Albumin Triglycerides Ur Specific [place] Urine Creatinine Crossmatch 06/15/21 06/15/21 06/15/21 03:55 03:56 10:40 WBC RBC Hgb 8.4 L Hct 25.8 L MCV MCH RDW Plt Count Lymph % (Auto) [place] % (Auto) Lymph # (Auto) [place] # (Auto) Seg Neutrophils % Seg Neuts % (Manual) Lymphocytes % (Manual) Monocytes % (Manual) Seg Neutrophils # Seg Neutrophils # Man Lymphocytes # (Manual) Monocytes # (Manual) PT INR APTT Fibrinogen D-Dimer ABG pH POC ABG pCO2 POC ABG pO2 ABG pO2 ABG HCO3 ABG O2 Saturation ABG Base Excess ABG Hemoglobin ABG Oxyhemoglobin Oxyhemoglobin Sodium 147 H Potassium Chloride 112.2 H Carbon Dioxide 21 L BUN 47 H Creatinine 1.9 H Glucose 272 H POC Glucose Lactic Acid Calcium 7.3 L Phosphorus Magnesium AST 64 H ALT 106 H Alkaline Phosphatase C-Reactive Protein Total Protein 5.1 L Albumin 2.9 L Triglycerides Ur Specific [place] Urine Creatinine 81.1 H Crossmatch 06/15/21 06/15/21 06/15/21 11:46 17:16 23:17 WBC RBC Hgb Hct MCV MCH RDW Plt Count Lymph % (Auto) [place] % (Auto) Lymph # (Auto) [place] # (Auto) Seg Neutrophils % Seg Neuts % (Manual) Lymphocytes % (Manual) Monocytes % (Manual) Seg Neutrophils # Seg Neutrophils # Man Lymphocytes # (Manual) Monocytes # (Manual) PT INR APTT Fibrinogen D-Dimer ABG pH POC ABG pCO2 POC ABG pO2 ABG pO2 ABG HCO3 ABG O2 Saturation ABG Base Excess ABG Hemoglobin ABG Oxyhemoglobin Oxyhemoglobin Sodium Potassium Chloride Carbon Dioxide BUN Creatinine Glucose POC Glucose 271 H 268 H 264 H Lactic Acid Calcium Phosphorus Magnesium AST ALT Alkaline Phosphatase C-Reactive Protein Total Protein Albumin Triglycerides Ur Specific [place] Urine Creatinine Crossmatch 06/15/21 06/15/21 06/16/21 Unknown Unknown 04:32 WBC RBC 3.21 L 3.16 L Hgb 8.4 L 8.2 L Hct 26.1 L 25.4 L MCV MCH 26 L 26 L RDW 21.3 H 21.2 H Plt Count 105 L 118 L Lymph % (Auto) [place] % (Auto) Lymph # (Auto) [place] # (Auto) Seg Neutrophils % Seg Neuts % (Manual) Lymphocytes % (Manual) Monocytes % (Manual) Seg Neutrophils # Seg Neutrophils # Man Lymphocytes # (Manual) Monocytes # (Manual) PT INR APTT Fibrinogen D-Dimer ABG pH 7.465 H POC ABG pCO2 POC ABG pO2 ABG pO2 114.1 H ABG HCO3 ABG O2 Saturation ABG Base Excess ABG Hemoglobin 8.4 L ABG Oxyhemoglobin Oxyhemoglobin Sodium Potassium Chloride Carbon Dioxide BUN Creatinine Glucose POC Glucose Lactic Acid Calcium Phosphorus Magnesium AST ALT Alkaline Phosphatase C-Reactive Protein Total Protein Albumin Triglycerides Ur Specific [place] Urine Creatinine Crossmatch 06/16/21 06/16/21 06/16/21 04:32 04:32 05:08 WBC RBC Hgb Hct MCV MCH RDW Plt Count Lymph % (Auto) [place] % (Auto) Lymph # (Auto) [place] # (Auto) Seg Neutrophils % Seg Neuts % (Manual) Lymphocytes % (Manual) Monocytes % (Manual) Seg Neutrophils # Seg Neutrophils # Man Lymphocytes # (Manual) Monocytes # (Manual) PT INR APTT Fibrinogen D-Dimer ABG pH POC ABG pCO2 POC ABG pO2 ABG pO2 ABG HCO3 ABG O2 Saturation ABG Base Excess ABG Hemoglobin ABG Oxyhemoglobin Oxyhemoglobin Sodium 148 H Potassium 3.3 L Chloride 115.1 H Carbon Dioxide 21 L BUN 54 H Creatinine 1.6 H Glucose 367 H POC Glucose 356 H Lactic Acid Calcium 7.4 L Phosphorus Magnesium AST ALT Alkaline Phosphatase C-Reactive Protein 3.30 H Total Protein Albumin Triglycerides Ur Specific [place] Urine Creatinine Crossmatch 06/16/21 06/16/21 06/16/21 05:30 11:46 17:03 WBC RBC Hgb Hct MCV MCH RDW Plt Count Lymph % (Auto) [place] % (Auto) Lymph # (Auto) [place] # (Auto) Seg Neutrophils % Seg Neuts % (Manual) Lymphocytes % (Manual) Monocytes % (Manual) Seg Neutrophils # Seg Neutrophils # Man Lymphocytes # (Manual) Monocytes # (Manual) PT INR APTT Fibrinogen D-Dimer ABG pH 7.475 H POC ABG pCO2 POC ABG pO2 ABG pO2 171.8 H ABG HCO3 ABG O2 Saturation 99.1 H ABG Base Excess ABG Hemoglobin 11.7 L ABG Oxyhemoglobin Oxyhemoglobin Sodium Potassium Chloride Carbon Dioxide BUN Creatinine Glucose POC Glucose 309 H 345 H Lactic Acid Calcium Phosphorus Magnesium AST ALT Alkaline Phosphatase C-Reactive Protein Total Protein Albumin Triglycerides Ur Specific [place] Urine Creatinine Crossmatch 06/16/21 06/16/21 06/17/21 20:18 23:22 04:50 WBC RBC Hgb Hct MCV MCH RDW Plt Count Lymph % (Auto) [place] % (Auto) Lymph # (Auto) [place] # (Auto) Seg Neutrophils % Seg Neuts % (Manual) Lymphocytes % (Manual) Monocytes % (Manual) Seg Neutrophils # Seg Neutrophils # Man Lymphocytes # (Manual) Monocytes # (Manual) PT INR APTT Fibrinogen D-Dimer ABG pH 7.479 H POC ABG pCO2 POC ABG pO2 ABG pO2 143.1 H ABG HCO3 ABG O2 Saturation ABG Base Excess ABG Hemoglobin 10.0 L ABG Oxyhemoglobin Oxyhemoglobin Sodium Potassium Chloride Carbon Dioxide BUN Creatinine Glucose POC Glucose 325 H 315 H Lactic Acid Calcium Phosphorus Magnesium AST ALT Alkaline Phosphatase C-Reactive Protein Total Protein Albumin Triglycerides Ur Specific [place] Urine Creatinine Crossmatch 06/17/21 06/17/21 06/17/21 05:18 05:30 05:30 WBC RBC 3.17 L Hgb 8.2 L Hct 25.5 L MCV MCH 26 L RDW 21.2 H Plt Count 128 L Lymph % (Auto) [place] % (Auto) Lymph # (Auto) [place] # (Auto) Seg Neutrophils % Seg Neuts % (Manual) Lymphocytes % (Manual) Monocytes % (Manual) Seg Neutrophils # Seg Neutrophils # Man Lymphocytes # (Manual) Monocytes # (Manual) PT INR APTT Fibrinogen D-Dimer ABG pH POC ABG pCO2 POC ABG pO2 ABG pO2 ABG HCO3 ABG O2 Saturation ABG Base Excess ABG Hemoglobin ABG Oxyhemoglobin Oxyhemoglobin Sodium 148 H Potassium Chloride 113.7 H Carbon Dioxide 20 L BUN 57 H Creatinine 1.4 H Glucose 351 H POC Glucose 324 H Lactic Acid Calcium 8.0 L Phosphorus 2.30 L Magnesium AST ALT Alkaline Phosphatase C-Reactive Protein Total Protein Albumin Triglycerides Ur Specific [place] Urine Creatinine Crossmatch 06/17/21 06/17/21 06/17/21 11:49 17:43 21:42 WBC RBC Hgb Hct MCV MCH RDW Plt Count Lymph % (Auto) [place] % (Auto) Lymph # (Auto) [place] # (Auto) Seg Neutrophils % Seg Neuts % (Manual) Lymphocytes % (Manual) Monocytes % (Manual) Seg Neutrophils # Seg Neutrophils # Man Lymphocytes # (Manual) Monocytes # (Manual) PT INR APTT Fibrinogen D-Dimer ABG pH POC ABG pCO2 POC ABG pO2 ABG pO2 ABG HCO3 ABG O2 Saturation ABG Base Excess ABG Hemoglobin ABG Oxyhemoglobin Oxyhemoglobin Sodium Potassium Chloride Carbon Dioxide BUN Creatinine Glucose POC Glucose 305 H 307 H 286 H Lactic Acid Calcium Phosphorus Magnesium AST ALT Alkaline Phosphatase C-Reactive Protein Total Protein Albumin Triglycerides Ur Specific [place] Urine Creatinine Crossmatch 06/17/21 06/18/21 06/18/21 23:59 04:20 04:37 WBC RBC 3.53 L Hgb 9.1 L Hct 28.7 L MCV MCH 26 L RDW 21.3 H Plt Count Lymph % (Auto) [place] % (Auto) Lymph # (Auto) [place] # (Auto) Seg Neutrophils % Seg Neuts % (Manual) Lymphocytes % (Manual) Monocytes % (Manual) Seg Neutrophils # Seg Neutrophils # Man Lymphocytes # (Manual) Monocytes # (Manual) PT INR APTT Fibrinogen D-Dimer ABG pH 7.495 H POC ABG pCO2 POC ABG pO2 ABG pO2 108.3 H ABG HCO3 ABG O2 Saturation ABG Base Excess -2.1 L ABG Hemoglobin 10.0 L ABG Oxyhemoglobin Oxyhemoglobin Sodium Potassium Chloride Carbon Dioxide BUN Creatinine Glucose POC Glucose 264 H Lactic Acid Calcium Phosphorus Magnesium AST ALT Alkaline Phosphatase C-Reactive Protein Total Protein Albumin Triglycerides Ur Specific [place] Urine Creatinine Crossmatch 06/18/21 06/18/21 06/18/21 04:37 05:32 11:21 WBC RBC Hgb Hct MCV MCH RDW Plt Count Lymph % (Auto) [place] % (Auto) Lymph # (Auto) [place] # (Auto) Seg Neutrophils % Seg Neuts % (Manual) Lymphocytes % (Manual) Monocytes % (Manual) Seg Neutrophils # Seg Neutrophils # Man Lymphocytes # (Manual) Monocytes # (Manual) PT INR APTT Fibrinogen D-Dimer ABG pH POC ABG pCO2 POC ABG pO2 ABG pO2 ABG HCO3 ABG O2 Saturation ABG Base Excess ABG Hemoglobin ABG Oxyhemoglobin Oxyhemoglobin Sodium 148 H Potassium Chloride 114.7 H Carbon Dioxide BUN 59 H Creatinine 1.3 H Glucose 329 H POC Glucose 293 H 291 H Lactic Acid Calcium 8.1 L Phosphorus Magnesium AST ALT Alkaline Phosphatase C-Reactive Protein Total Protein Albumin Triglycerides Ur Specific [place] Urine Creatinine Crossmatch 06/18/21 06/18/21 06/19/21 18:21 21:46 00:15 WBC RBC Hgb Hct MCV MCH RDW Plt Count Lymph % (Auto) [place] % (Auto) Lymph # (Auto) [place] # (Auto) Seg Neutrophils % Seg Neuts % (Manual) Lymphocytes % (Manual) Monocytes % (Manual) Seg Neutrophils # Seg Neutrophils # Man Lymphocytes # (Manual) Monocytes # (Manual) PT INR APTT Fibrinogen D-Dimer ABG pH POC ABG pCO2 POC ABG pO2 ABG pO2 ABG HCO3 ABG O2 Saturation ABG Base Excess ABG Hemoglobin ABG Oxyhemoglobin Oxyhemoglobin Sodium Potassium Chloride Carbon Dioxide BUN Creatinine Glucose POC Glucose 239 H 259 H 310 H Lactic Acid Calcium Phosphorus Magnesium AST ALT Alkaline Phosphatase C-Reactive Protein Total Protein Albumin Triglycerides Ur Specific [place] Urine Creatinine Crossmatch 06/19/21 06/19/21 06/19/21 04:00 04:00 04:50 WBC RBC 3.64 L Hgb 9.1 L Hct 29.1 L MCV MCH 25 L RDW 21.5 H Plt Count Lymph % (Auto) [place] % (Auto) Lymph # (Auto) [place] # (Auto) Seg Neutrophils % Seg Neuts % (Manual) Lymphocytes % (Manual) Monocytes % (Manual) Seg Neutrophils # Seg Neutrophils # Man Lymphocytes # (Manual) Monocytes # (Manual) PT INR APTT Fibrinogen D-Dimer ABG pH POC ABG pCO2 POC ABG pO2 ABG pO2 78.9 L ABG HCO3 ABG O2 Saturation ABG Base Excess -3.2 L ABG Hemoglobin 7.6 L ABG Oxyhemoglobin Oxyhemoglobin Sodium 148 H Potassium Chloride 114.9 H Carbon Dioxide 19 L BUN 59 H Creatinine Glucose 345 H POC Glucose Lactic Acid Calcium 8.1 L Phosphorus 4.60 H D Magnesium 2.40 H AST ALT Alkaline Phosphatase C-Reactive Protein Total Protein Albumin Triglycerides Ur Specific [place] Urine Creatinine Crossmatch 06/19/21 06/19/21 06/19/21 06:28 11:11 17:20 WBC RBC Hgb Hct MCV MCH RDW Plt Count Lymph % (Auto) [place] % (Auto) Lymph # (Auto) [place] # (Auto) Seg Neutrophils % Seg Neuts % (Manual) Lymphocytes % (Manual) Monocytes % (Manual) Seg Neutrophils # Seg Neutrophils # Man Lymphocytes # (Manual) Monocytes # (Manual) PT 29.7 H INR 2.57 H APTT Fibrinogen D-Dimer ABG pH POC ABG pCO2 POC ABG pO2 ABG pO2 ABG HCO3 ABG O2 Saturation ABG Base Excess ABG Hemoglobin ABG Oxyhemoglobin Oxyhemoglobin Sodium Potassium Chloride Carbon Dioxide BUN Creatinine Glucose POC Glucose 279 H 275 H Lactic Acid Calcium Phosphorus Magnesium AST ALT Alkaline Phosphatase C-Reactive Protein Total Protein Albumin Triglycerides Ur Specific [place] Urine Creatinine Crossmatch 06/19/21 06/19/21 06/19/21 18:30 19:20 23:27 WBC RBC Hgb 8.0 L Hct 25.0 L MCV MCH RDW Plt Count Lymph % (Auto) [place] % (Auto) Lymph # (Auto) [place] # (Auto) Seg Neutrophils % Seg Neuts % (Manual) Lymphocytes % (Manual) Monocytes % (Manual) Seg Neutrophils # Seg Neutrophils # Man Lymphocytes # (Manual) Monocytes # (Manual) PT INR APTT Fibrinogen D-Dimer ABG pH POC ABG pCO2 POC ABG pO2 ABG pO2 ABG HCO3 ABG O2 Saturation ABG Base Excess ABG Hemoglobin ABG Oxyhemoglobin Oxyhemoglobin Sodium Potassium Chloride Carbon Dioxide BUN Creatinine Glucose POC Glucose 279 H 290 H Lactic Acid Calcium Phosphorus Magnesium AST ALT Alkaline Phosphatase C-Reactive Protein Total Protein Albumin Triglycerides Ur Specific [place] Urine Creatinine Crossmatch 06/20/21 06/20/21 06/20/21 00:00 04:33 04:33 WBC 22.3 H RBC 3.31 L Hgb 7.4 L 8.5 L Hct 22.5 L 26.5 L MCV MCH 26 L RDW 21.5 H Plt Count Lymph % (Auto) [place] % (Auto) Lymph # (Auto) [place] # (Auto) Seg Neutrophils % Seg Neuts % (Manual) Lymphocytes % (Manual) Monocytes % (Manual) Seg Neutrophils # Seg Neutrophils # Man Lymphocytes # (Manual) Monocytes # (Manual) PT INR APTT Fibrinogen D-Dimer ABG pH POC ABG pCO2 POC ABG pO2 ABG pO2 ABG HCO3 ABG O2 Saturation ABG Base Excess ABG Hemoglobin ABG Oxyhemoglobin Oxyhemoglobin Sodium 148 H Potassium Chloride 114.2 H Carbon Dioxide BUN 70 H Creatinine 1.4 H Glucose 313 H POC Glucose Lactic Acid Calcium 8.2 L Phosphorus Magnesium 2.50 H AST ALT Alkaline Phosphatase C-Reactive Protein Total Protein Albumin Triglycerides Ur Specific [place] Urine Creatinine Crossmatch 06/20/21 06/20/21 06/20/21 04:33 05:27 11:21 WBC RBC Hgb Hct MCV MCH RDW Plt Count Lymph % (Auto) [place] % (Auto) Lymph # (Auto) [place] # (Auto) Seg Neutrophils % Seg Neuts % (Manual) Lymphocytes % (Manual) Monocytes % (Manual) Seg Neutrophils # Seg Neutrophils # Man Lymphocytes # (Manual) Monocytes # (Manual) PT 18.3 H INR 1.37 H APTT Fibrinogen D-Dimer ABG pH POC ABG pCO2 POC ABG pO2 ABG pO2 ABG HCO3 ABG O2 Saturation ABG Base Excess ABG Hemoglobin ABG Oxyhemoglobin Oxyhemoglobin Sodium Potassium Chloride Carbon Dioxide BUN Creatinine Glucose POC Glucose 288 H 306 H Lactic Acid Calcium Phosphorus Magnesium AST ALT Alkaline Phosphatase C-Reactive Protein Total Protein Albumin Triglycerides Ur Specific [place] Urine Creatinine Crossmatch 06/20/21 06/20/21 06/20/21 12:23 15:56 18:20 WBC RBC Hgb 8.2 L 8.1 L Hct 25.9 L 25.5 L MCV MCH RDW Plt Count Lymph % (Auto) [place] % (Auto) Lymph # (Auto) [place] # (Auto) Seg Neutrophils % Seg Neuts % (Manual) Lymphocytes % (Manual) Monocytes % (Manual) Seg Neutrophils # Seg Neutrophils # Man Lymphocytes # (Manual) Monocytes # (Manual) PT INR APTT Fibrinogen D-Dimer ABG pH POC ABG pCO2 POC ABG pO2 ABG pO2 ABG HCO3 ABG O2 Saturation ABG Base Excess ABG Hemoglobin ABG Oxyhemoglobin Oxyhemoglobin Sodium Potassium Chloride Carbon Dioxide BUN Creatinine Glucose POC Glucose 293 H Lactic Acid Calcium Phosphorus Magnesium AST ALT Alkaline Phosphatase C-Reactive Protein Total Protein Albumin Triglycerides Ur Specific [place] Urine Creatinine Crossmatch 06/20/21 06/21/21 06/21/21 23:11 04:20 04:42 WBC 15.1 H RBC 2.84 L Hgb 7.3 L Hct 23.1 L MCV MCH 26 L RDW 21.5 H Plt Count Lymph % (Auto) 3.5 L [place] % (Auto) 11.7 H Lymph # (Auto) 0.5 L [place] # (Auto) 1.8 H Seg Neutrophils % 84.7 H Seg Neuts % (Manual) Lymphocytes % (Manual) Monocytes % (Manual) Seg Neutrophils # 12.8 H Seg Neutrophils # Man Lymphocytes # (Manual) Monocytes # (Manual) PT INR APTT Fibrinogen D-Dimer ABG pH POC ABG pCO2 POC ABG pO2 ABG pO2 98.5 H ABG HCO3 ABG O2 Saturation ABG Base Excess ABG Hemoglobin 7.2 L ABG Oxyhemoglobin Oxyhemoglobin Sodium Potassium Chloride Carbon Dioxide BUN Creatinine Glucose POC Glucose 206 H Lactic Acid Calcium Phosphorus Magnesium AST ALT Alkaline Phosphatase C-Reactive Protein Total Protein Albumin Triglycerides Ur Specific [place] Urine Creatinine Crossmatch 06/21/21 06/21/21 06/21/21 04:42 05:08 11:06 WBC RBC Hgb Hct MCV MCH RDW Plt Count Lymph % (Auto) [place] % (Auto) Lymph # (Auto) [place] # (Auto) Seg Neutrophils % Seg Neuts % (Manual) Lymphocytes % (Manual) Monocytes % (Manual) Seg Neutrophils # Seg Neutrophils # Man Lymphocytes # (Manual) Monocytes # (Manual) PT INR APTT Fibrinogen D-Dimer ABG pH POC ABG pCO2 POC ABG pO2 ABG pO2 ABG HCO3 ABG O2 Saturation ABG Base Excess ABG Hemoglobin ABG Oxyhemoglobin Oxyhemoglobin Sodium 151 H Potassium Chloride 117.2 H Carbon Dioxide 21 L BUN 75 H Creatinine 1.6 H Glucose 216 H POC Glucose 190 H 204 H Lactic Acid Calcium 7.9 L Phosphorus Magnesium 2.60 H AST ALT Alkaline Phosphatase C-Reactive Protein Total Protein Albumin Triglycerides 254 H Ur Specific [place] Urine Creatinine Crossmatch 06/21/21 06/21/21 06/21/21 14:00 16:42 21:52 WBC RBC Hgb 7.1 L 7.2 L Hct 22.0 L 22.1 L MCV MCH RDW Plt Count Lymph % (Auto) [place] % (Auto) Lymph # (Auto) [place] # (Auto) Seg Neutrophils % Seg Neuts % (Manual) Lymphocytes % (Manual) Monocytes % (Manual) Seg Neutrophils # Seg Neutrophils # Man Lymphocytes # (Manual) Monocytes # (Manual) PT INR APTT Fibrinogen D-Dimer ABG pH POC ABG pCO2 POC ABG pO2 ABG pO2 ABG HCO3 ABG O2 Saturation ABG Base Excess ABG Hemoglobin ABG Oxyhemoglobin Oxyhemoglobin Sodium Potassium Chloride Carbon Dioxide BUN Creatinine Glucose POC Glucose 207 H Lactic Acid Calcium Phosphorus Magnesium AST ALT Alkaline Phosphatase C-Reactive Protein Total Protein Albumin Triglycerides Ur Specific [place] Urine Creatinine Crossmatch 06/21/21 06/22/21 06/22/21 23:29 04:30 04:30 WBC 16.8 H RBC 2.93 L Hgb 7.4 L Hct 23.9 L MCV MCH 25 L RDW 21.8 H Plt Count Lymph % (Auto) [place] % (Auto) Lymph # (Auto) [place] # (Auto) Seg Neutrophils % Seg Neuts % (Manual) Lymphocytes % (Manual) Monocytes % (Manual) Seg Neutrophils # Seg Neutrophils # Man Lymphocytes # (Manual) Monocytes # (Manual) PT INR APTT Fibrinogen D-Dimer ABG pH POC ABG pCO2 POC ABG pO2 ABG pO2 ABG HCO3 ABG O2 Saturation ABG Base Excess ABG Hemoglobin ABG Oxyhemoglobin Oxyhemoglobin Sodium 151 H Potassium Chloride 118.7 H Carbon Dioxide BUN 57 H Creatinine Glucose 238 H POC Glucose 273 H Lactic Acid Calcium 8.0 L Phosphorus Magnesium 2.70 H AST ALT Alkaline Phosphatase C-Reactive Protein Total Protein Albumin Triglycerides Ur Specific [place] Urine Creatinine Crossmatch 06/22/21 06/22/21 06/22/21 05:17 11:31 14:20 WBC RBC Hgb 7.4 L Hct 22.5 L MCV MCH RDW Plt Count Lymph % (Auto) [place] % (Auto) Lymph # (Auto) [place] # (Auto) Seg Neutrophils % Seg Neuts % (Manual) Lymphocytes % (Manual) Monocytes % (Manual) Seg Neutrophils # Seg Neutrophils # Man Lymphocytes # (Manual) Monocytes # (Manual) PT INR APTT Fibrinogen D-Dimer ABG pH POC ABG pCO2 POC ABG pO2 ABG pO2 ABG HCO3 ABG O2 Saturation ABG Base Excess ABG Hemoglobin ABG Oxyhemoglobin Oxyhemoglobin Sodium Potassium Chloride Carbon Dioxide BUN Creatinine Glucose POC Glucose 214 H 214 H Lactic Acid Calcium Phosphorus Magnesium AST ALT Alkaline Phosphatase C-Reactive Protein Total Protein Albumin Triglycerides Ur Specific [place] Urine Creatinine Crossmatch 06/22/21 06/22/21 06/23/21 17:18 23:47 05:33 WBC RBC Hgb Hct MCV MCH RDW Plt Count Lymph % (Auto) [place] % (Auto) Lymph # (Auto) [place] # (Auto) Seg Neutrophils % Seg Neuts % (Manual) Lymphocytes % (Manual) Monocytes % (Manual) Seg Neutrophils # Seg Neutrophils # Man Lymphocytes # (Manual) Monocytes # (Manual) PT INR APTT Fibrinogen D-Dimer ABG pH POC ABG pCO2 POC ABG pO2 ABG pO2 ABG HCO3 ABG O2 Saturation ABG Base Excess ABG Hemoglobin ABG Oxyhemoglobin Oxyhemoglobin Sodium Potassium Chloride Carbon Dioxide BUN Creatinine Glucose POC Glucose 238 H 227 H 202 H Lactic Acid Calcium Phosphorus Magnesium AST ALT Alkaline Phosphatase C-Reactive Protein Total Protein Albumin Triglycerides Ur Specific [place] Urine Creatinine Crossmatch 06/23/21 06/23/21 06/23/21 10:04 10:04 11:06 WBC 20.3 H RBC 2.71 L Hgb 7.3 L Hct 21.8 L MCV MCH 27 L RDW 22.1 H Plt Count Lymph % (Auto) [place] % (Auto) Lymph # (Auto) [place] # (Auto) Seg Neutrophils % Seg Neuts % (Manual) Lymphocytes % (Manual) Monocytes % (Manual) Seg Neutrophils # Seg Neutrophils # Man Lymphocytes # (Manual) Monocytes # (Manual) PT INR APTT Fibrinogen D-Dimer ABG pH POC ABG pCO2 POC ABG pO2 ABG pO2 ABG HCO3 ABG O2 Saturation ABG Base Excess ABG Hemoglobin ABG Oxyhemoglobin Oxyhemoglobin Sodium 151 H Potassium 3.2 L Chloride 116.9 H Carbon Dioxide BUN 40 H Creatinine Glucose 208 H POC Glucose 204 H Lactic Acid Calcium 8.0 L Phosphorus 1.80 L D Magnesium AST ALT Alkaline Phosphatase C-Reactive Protein Total Protein Albumin Triglycerides Ur Specific [place] Urine Creatinine Crossmatch 06/23/21 06/23/21 06/24/21 16:11 23:47 04:00 WBC 16.9 H RBC 2.49 L Hgb 6.6 L Hct 20.3 L MCV MCH 26 L RDW 22.6 H Plt Count Lymph % (Auto) [place] % (Auto) Lymph # (Auto) [place] # (Auto) Seg Neutrophils % Seg Neuts % (Manual) Lymphocytes % (Manual) Monocytes % (Manual) Seg Neutrophils # Seg Neutrophils # Man Lymphocytes # (Manual) Monocytes # (Manual) PT INR APTT Fibrinogen D-Dimer ABG pH POC ABG pCO2 POC ABG pO2 ABG pO2 ABG HCO3 ABG O2 Saturation ABG Base Excess ABG Hemoglobin ABG Oxyhemoglobin Oxyhemoglobin Sodium Potassium Chloride Carbon Dioxide BUN Creatinine Glucose POC Glucose 228 H 189 H Lactic Acid Calcium Phosphorus Magnesium AST ALT Alkaline Phosphatase C-Reactive Protein Total Protein Albumin Triglycerides Ur Specific [place] Urine Creatinine Crossmatch 06/24/21 06/24/21 06/24/21 04:00 05:43 06:40 WBC RBC Hgb Hct MCV MCH RDW Plt Count Lymph % (Auto) [place] % (Auto) Lymph # (Auto) [place] # (Auto) Seg Neutrophils % Seg Neuts % (Manual) Lymphocytes % (Manual) Monocytes % (Manual) Seg Neutrophils # Seg Neutrophils # Man Lymphocytes # (Manual) Monocytes # (Manual) PT INR APTT Fibrinogen D-Dimer ABG pH POC ABG pCO2 POC ABG pO2 ABG pO2 ABG HCO3 ABG O2 Saturation ABG Base Excess ABG Hemoglobin ABG Oxyhemoglobin Oxyhemoglobin Sodium 148 H Potassium 3.2 L Chloride 115.6 H Carbon Dioxide BUN 35 H Creatinine Glucose 153 H POC Glucose 134 H Lactic Acid Calcium 7.9 L Phosphorus 2.40 L D Magnesium AST ALT Alkaline Phosphatase C-Reactive Protein Total Protein Albumin Triglycerides Ur Specific [place] Urine Creatinine Crossmatch See Detail 06/24/21 06/24/21 06/24/21 11:08 16:47 21:49 WBC RBC Hgb Hct MCV MCH RDW Plt Count Lymph % (Auto) [place] % (Auto) Lymph # (Auto) [place] # (Auto) Seg Neutrophils % Seg Neuts % (Manual) Lymphocytes % (Manual) Monocytes % (Manual) Seg Neutrophils # Seg Neutrophils # Man Lymphocytes # (Manual) Monocytes # (Manual) PT INR APTT Fibrinogen D-Dimer ABG pH POC ABG pCO2 POC ABG pO2 ABG pO2 ABG HCO3 ABG O2 Saturation ABG Base Excess ABG Hemoglobin ABG Oxyhemoglobin Oxyhemoglobin Sodium Potassium Chloride Carbon Dioxide BUN Creatinine Glucose POC Glucose 153 H 201 H 132 H Lactic Acid Calcium Phosphorus Magnesium AST ALT Alkaline Phosphatase C-Reactive Protein Total Protein Albumin Triglycerides Ur Specific [place] Urine Creatinine Crossmatch 06/24/21 06/25/21 06/25/21 23:24 05:30 09:00 WBC RBC Hgb 8.3 L Hct 27.0 L MCV MCH RDW Plt Count Lymph % (Auto) [place] % (Auto) Lymph # (Auto) [place] # (Auto) Seg Neutrophils % Seg Neuts % (Manual) Lymphocytes % (Manual) Monocytes % (Manual) Seg Neutrophils # Seg Neutrophils # Man Lymphocytes # (Manual) Monocytes # (Manual) PT INR APTT Fibrinogen D-Dimer ABG pH POC ABG pCO2 POC ABG pO2 ABG pO2 ABG HCO3 ABG O2 Saturation ABG Base Excess ABG Hemoglobin ABG Oxyhemoglobin Oxyhemoglobin Sodium Potassium Chloride Carbon Dioxide BUN Creatinine Glucose POC Glucose 170 H 151 H Lactic Acid Calcium Phosphorus Magnesium AST ALT Alkaline Phosphatase C-Reactive Protein Total Protein Albumin Triglycerides Ur Specific [place] Urine Creatinine Crossmatch 06/25/21 06/25/21 06/25/21 11:29 14:24 16:48 WBC RBC Hgb 8.5 L Hct 27.5 L MCV MCH RDW Plt Count Lymph % (Auto) [place] % (Auto) Lymph # (Auto) [place] # (Auto) Seg Neutrophils % Seg Neuts % (Manual) Lymphocytes % (Manual) Monocytes % (Manual) Seg Neutrophils # Seg Neutrophils # Man Lymphocytes # (Manual) Monocytes # (Manual) PT INR APTT Fibrinogen D-Dimer ABG pH POC ABG pCO2 POC ABG pO2 ABG pO2 ABG HCO3 ABG O2 Saturation ABG Base Excess ABG Hemoglobin ABG Oxyhemoglobin Oxyhemoglobin Sodium Potassium Chloride Carbon Dioxide BUN Creatinine Glucose POC Glucose 189 H 224 H Lactic Acid Calcium Phosphorus Magnesium AST ALT Alkaline Phosphatase C-Reactive Protein Total Protein Albumin Triglycerides Ur Specific [place] Urine Creatinine Crossmatch 06/25/21 06/25/21 06/25/21 23:39 Unknown Unknown WBC 16.5 H RBC 2.90 L Hgb 8.0 L Hct 23.8 L MCV MCH RDW 22.8 H Plt Count Lymph % (Auto) [place] % (Auto) Lymph # (Auto) [place] # (Auto) Seg Neutrophils % Seg Neuts % (Manual) Lymphocytes % (Manual) Monocytes % (Manual) Seg Neutrophils # Seg Neutrophils # Man Lymphocytes # (Manual) Monocytes # (Manual) PT INR APTT Fibrinogen D-Dimer ABG pH POC ABG pCO2 POC ABG pO2 ABG pO2 ABG HCO3 ABG O2 Saturation ABG Base Excess ABG Hemoglobin ABG Oxyhemoglobin Oxyhemoglobin Sodium 149 H Potassium Chloride 115.6 H Carbon Dioxide BUN 28 H Creatinine Glucose 157 H POC Glucose 187 H Lactic Acid Calcium 8.0 L Phosphorus Magnesium AST ALT Alkaline Phosphatase C-Reactive Protein Total Protein Albumin Triglycerides Ur Specific [place] Urine Creatinine Crossmatch 06/26/21 06/26/21 06/26/21 05:22 05:29 05:29 WBC 16.2 H RBC 3.03 L Hgb 8.0 L Hct 25.1 L MCV MCH 26 L RDW 23.2 H Plt Count Lymph % (Auto) [place] % (Auto) Lymph # (Auto) [place] # (Auto) Seg Neutrophils % Seg Neuts % (Manual) Lymphocytes % (Manual) Monocytes % (Manual) Seg Neutrophils # Seg Neutrophils # Man Lymphocytes # (Manual) Monocytes # (Manual) PT INR APTT Fibrinogen D-Dimer ABG pH POC ABG pCO2 POC ABG pO2 ABG pO2 ABG HCO3 ABG O2 Saturation ABG Base Excess ABG Hemoglobin ABG Oxyhemoglobin Oxyhemoglobin Sodium 150 H Potassium Chloride 114.8 H Carbon Dioxide BUN 29 H Creatinine Glucose 229 H POC Glucose 211 H Lactic Acid Calcium 8.2 L Phosphorus Magnesium AST ALT Alkaline Phosphatase C-Reactive Protein Total Protein Albumin Triglycerides Ur Specific [place] Urine Creatinine Crossmatch 06/26/21 06/26/21 06/26/21 11:05 15:59 22:00 WBC RBC Hgb Hct MCV MCH RDW Plt Count Lymph % (Auto) [place] % (Auto) Lymph # (Auto) [place] # (Auto) Seg Neutrophils % Seg Neuts % (Manual) Lymphocytes % (Manual) Monocytes % (Manual) Seg Neutrophils # Seg Neutrophils # Man Lymphocytes # (Manual) Monocytes # (Manual) PT INR APTT Fibrinogen D-Dimer ABG pH POC ABG pCO2 POC ABG pO2 ABG pO2 ABG HCO3 ABG O2 Saturation ABG Base Excess ABG Hemoglobin ABG Oxyhemoglobin Oxyhemoglobin Sodium Potassium Chloride Carbon Dioxide BUN Creatinine Glucose POC Glucose 213 H 222 H 161 H Lactic Acid Calcium Phosphorus Magnesium AST ALT Alkaline Phosphatase C-Reactive Protein Total Protein Albumin Triglycerides Ur Specific [place] Urine Creatinine Crossmatch 06/26/21 06/27/21 06/27/21 23:24 04:15 04:15 WBC 14.3 H RBC 2.96 L Hgb 8.1 L Hct 24.6 L MCV MCH 27 L RDW 23.0 H Plt Count Lymph % (Auto) [place] % (Auto) Lymph # (Auto) [place] # (Auto) Seg Neutrophils % Seg Neuts % (Manual) Lymphocytes % (Manual) Monocytes % (Manual) Seg Neutrophils # Seg Neutrophils # Man Lymphocytes # (Manual) Monocytes # (Manual) PT INR APTT Fibrinogen D-Dimer ABG pH POC ABG pCO2 POC ABG pO2 ABG pO2 ABG HCO3 ABG O2 Saturation ABG Base Excess ABG Hemoglobin ABG Oxyhemoglobin Oxyhemoglobin Sodium 150 H Potassium Chloride 113.8 H Carbon Dioxide BUN 26 H Creatinine Glucose 246 H POC Glucose 164 H Lactic Acid Calcium 7.8 L Phosphorus Magnesium AST ALT Alkaline Phosphatase C-Reactive Protein Total Protein Albumin Triglycerides Ur Specific [place] Urine Creatinine Crossmatch 06/27/21 06/27/21 05:44 11:07 WBC RBC Hgb Hct MCV MCH RDW Plt Count Lymph % (Auto) [place] % (Auto) Lymph # (Auto) [place] # (Auto) Seg Neutrophils % Seg Neuts % (Manual) Lymphocytes % (Manual) Monocytes % (Manual) Seg Neutrophils # Seg Neutrophils # Man Lymphocytes # (Manual) Monocytes # (Manual) PT INR APTT Fibrinogen D-Dimer ABG pH POC ABG pCO2 POC ABG pO2 ABG pO2 ABG HCO3 ABG O2 Saturation ABG Base Excess ABG Hemoglobin ABG Oxyhemoglobin Oxyhemoglobin Sodium Potassium Chloride Carbon Dioxide BUN Creatinine Glucose POC Glucose 226 H 204 H Lactic Acid Calcium Phosphorus Magnesium AST ALT Alkaline Phosphatase C-Reactive Protein Total Protein Albumin Triglycerides Ur Specific [place] Urine Creatinine Crossmatch
--- NOTE | 2021-06-27 17:17 | Progress Note ---
Assessment and Plan Assessment and plan: This is a 76-year-old female with HTN, Coumadin use, dental caries, PVD s/p stenting to right leg, DM, arthritis, depression, gout and ? Pulmonary hypertension admitted with Jeremiah's angina s/p emergent cric with bleeding, right sided pneumothorax, supratherapeutic INR, hypernatremia, hyperchloremia, severe metabolic acidosis, hyperglycemia and hypocalcemia Neuro: Sedated, h/o depression, arthritis -Sedated fentanyl gtt -RASS goal 0 to -1 -Avoid delirium -Reorientation as needed -Maintain sleep-wake cycle -PT consulted; recommends LTAC Cardiac: S/p cardiac arrest, h/o htn, PVD s/p stenting Right leg -06/14 cardiac arrest with ROSC -S/p vasopressor support with Levophed and Fabian-Synephrine -Blood pressure monitoring per protocol -Antihypertensive regimen: Hydralazine 100 mg every 8 -06/13 Echocardiogram EF 65-70% Respiratory: Acute hypoxic respiratory failure, right pneumothorax -CCM consulted, appreciate recommendations -S/p emergent cricothyroidectomy with surgery with 8.00 ETT -s/p trach 06/19 with surgery (#[address]) -A.m. vent settings: Assist-control rate 18, tidal volume 450, PEEP 6, FiO2 30% -T-piece trials started 06/26 -A.m. ABG and CXR noted -Right chest tube replaced by surgery -CT to water seal 06/27 -Changed to larger bore on 06/13 -Planned for removal when weaned off ventilator -Postop CXR shows possible hydropneumothorax on right side -06/13 bronchoscopy showed possible blood clot in left lung which may be acting as mucous plug however it was left in place due to possible bleeding inside lung if removed. -CXR post cardiac arrest shows clearance of mucous plug -06/16 CT chest shows moderate right pneumothorax with collapse of right upper lobe, right thoracostomy tube terminates at the collapsed right upper lobe, bilateral bronchus opacities compatible with infectious/inflammatory etiology, bilateral small pleural effusion, extensive subcutaneous air, small fluid collection in the anterior mediastinum is nonspecific -VAP bundle -SPO2 monitoring GI: Protein calorie malnutrition -24 hours -57 mL -CT 150 mL -PPI -BR: senna, colace -s/p TPN -Enteric consult for nutrition -S/p PEG : Acute kidney injury possibly secondary to vasomotor nephropathy, metabolic acidosis, hypokalemia, hypernatremia, hyperchloremia -Strict intake and output -Renally dose medications -Avoid nephrotoxic medications -Daily weights -Consider nephrology consult if worsens -S/p 7 L LR bolus -FeNa 0.067 -Replete potassium -Free water flush to 400 every 4 -Free water deficit 2.08 L 06/25 ID: 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 dental caries -CT neck with contrast showed a significant right floor of mild swelling with extension into the submandibular and submental spaces, significant thickening and inflammation involving the right pharyngeal wall, with the parapharyngeal and retropharyngeal spaces at the level of the thyroid cartilage, epiglottis significantly swollen and so are the aryepiglottic folds resulting in significant airway narrowing at this level, no lymphadenopathy, symmetric submandibular and parathyroid glands, S few scattered caries but no periapical lucencies, nonspecific calcification along the right lateral oropharynx, no definite stone seen within the territory of the submandibular gland ducts, no suspicious rashes lesion -Infectious disease and general surgery consulted, appreciate recommendations -s/p cricothyroidectomy -Will follow surgery to direction and treatment of injury -Per surgery may have mucosal injury -Intra-Op findings include post pharyngeal swelling and bruising -Solu-Medrol 125 every 8 -tapering -Antibiotic therapy Zosyn -COVID-19 PCR negative -f/u blood culture -Monitor WBC and temperature curve -s/p 5L normal saline bolus in ED, 7 L LR bolus in ICU Heme: Coagulopathy, supratherapeutic INR, acute blood loss anemiq, possible component of hemorrhagic shock -Patient is on Coumadin at home -S/p 5 FFP, 8 PRBC, vitamin K x3 -Trend CBC -Presented with H/H of 10.3/34.6 and decreased to 6.7/22.4 -INR 8.18-> 4.55-> 2.1-> 1.23-> 1.16-> 1.31 -Monitor INR -Transfuse hemoglobin less than 7 -Serial H&H -Monitor for signs of bleeding -SCDs to BLE while in bed -Avoid chemical anticoagulation in setting of recent blood loss anemia Endo: Hyperglycemia, h/o DM, gout -S/p Lantus 25 units x 1 -Lantus subcu, titrate as needed -Lispro TID -Avoid hypoglycemia -SSI -Accu-Cheks q. 6hr The high probability of a clinically significant, sudden or life threatening deterioration of the [multi] system(s) required my full and direct attention, intervention and personal management. The aggregate critical care time was [60] minutes. This time is in addition to time spent performing reported procedures but includes the following: [x] Data Review and interpretation [x] Patient assessment and monitoring of vital signs [x] Documentation [x] Medication orders and management Disposition Plan: icu Total Time Spent with Patient (Minutes): 60 History Interval history: This is a 76-year-old female with HTN, Coumadin use , dental caries, PVD s/p stenting right leg, DM, arthritis, depression, gout, and ? Pulmonary hype rtension who presented to emergency department on 06/11 with complaints of pain to mandible area and throat and swelling. Work-up in the emergency department included CT scan of the head and neck which showed findings consistent with Jeremiah's angina and anesthesia was called for intubation. Anesthesia intubation attempts were unsuccessful and surgery was consulted for cricothyroidotomy which was unsuccessful in the emergency department and patient was taken to the OR for tracheostomy. Intubation procedure was complicated by development of pneumothorax and excessive bleeding. Patient given multiple FFP's and vitamin K several times who attempts to decrease INR. Lab work showed leukocytosis, sup ratherapeutic INR, hypernatremia, hyperchloremia, severe metabolic acidosis, hyperglycemia, hypocalcemia. Patient was admitted to the hospitalist service with consults to [facility], general surgery, infectious disease. Hospital course to date: 06/12: Patient received additional 2 units FFP and 1 unit PRBC and vitamin K today. Overnight critical care placed a femoral CVL. Patient sedated on fentanyl, propofol and Versed. Currently on Fabian-Synephrine and Levophed for blood pressure maintenance. Remains amatory support. Infectious disease consulted. Started on sliding scale insulin and recultured. COVID-19 PCR pending. Surgery at bedside to place chest tube. 06/13: Patient was taken back to the OR today for exchange cricothyroid to possible tracheostomy. Patient returned with ETT. Chest tube was changed to larger size in the OR. Patient was hypotensive, tachycardic, hypoxic in the OR and received hespan, albumin and an A-line. Upon arrival patient was increased to max dose Levophed for hypotension which has resolved. Titrating vasopressors as tolerated. Remains on sedation with 3 agents. Apparently patient was not ventilating her left lung Intra-Op. Noted to have subcu hematoma and trauma to postpharyngeal area. Questionable decrease cardiac wall motion noted in OR-> will order echocardiogram to further investigate. Patient received additional PRBC today. DIC panel resulted as normal. Patient BUN/creatinine did increase as well as noted to have lactic acidosis. May need IV bolus in addition to pressor use. Likely bronc with Pulmicort today as repeat CXR showed right p ossible pneumo hydrothorax 06/14: Antibiotics changed to Zosyn per ID, surgical packing removed from neck and makeshift Faith drain placed by surgery and old chronic thyroidectomy site. CXR was completed and RN heard gurgling and blood was noted on dressing. ST elevation noted on bedside monitor and patient was hypoxic. FiO2 increased to 100%. However shortly after patient lost her pulse and ACLS was initiated. Patient received 3 rounds of epinephrine and ROSC was achieved. Stat portable CXR showed resolution of lower lobe collapse on the left and stable right-sided chest tube with hemothorax. CCM updated family. Patient H/H noted to be 7.2/23.2 and did RN to transfuse prepared PRBC which [facility] blood bank. Bedside echo completed. 06/15: Off sedation, intermittently follows commands, remains on the prednisone. Surgery will reassess airway on Thursday to see if any further support is required. Urine studies indicate prerenal, given IV bolus and started on Clinimix today. 06/16: Patient restarted on fentanyl drip due to hypertension. Given more LR due to CR improvement post LR yesterday. Patient started on Lantus subcu after given one-time dose of Lantus. PICC placed today. Patient had a CT chest today which showed no mediasinusitis but extensive subcutaneous air. 06/17: General Surgery recommended transferring patient to a ENT specialized facility. Placed a call to [facility], spoke with the tribunal member, Dr. Duckworth, who stated that a transfer is possible as long their ENT team accept the patient. Awaiting on a final response. Continue current supportive measures. Basal insulin adjusted for hyperglycemia. 2/15: JEREMIAS overnight. Hypertensive this am, PRN Hydralazine for SBP greater than 160. Remains hyperglycemic, patient is on IV steroids and TPN, basal insulin adjusted. Plan for possible transfer to [place] once an ICU bed is available. 06/19: Low SPO2 and hypotension overnight required Levophed for a short time. Overnight CXR noted with no significant changed. Patient is stable this am and off pressors. Plan for possible Trach and PEG today by General Surgery. 06/20: s/p Trach and PEG. Some bleeding overnight s/p X1 dose of Vitamin K. The bleeding resolved this am, H&H remains stable. Attempted a SAT this am, patient went into SVT, HR in the 160-170 which resolved once sedations were resumed. Plan is to continue to sedation for now, attempt to wean off propofol for a RASS goal of 0 to -2. D/C CCM plan is to wean off sedation as tolerated for PST for possible extubation. Okay to use PEGT per Gen. Surgery. Nutrition consulted for TF management, TF to start tonight once current TPN bag is completed. BG remains elevated, continue current SSI and basal for now, will start tapering IV steroids tomorrow. FWF added for hyponatremia. Wean off pressors as tolerated for MAP above 65. Possible transfer to [place] for ENT eval. 06/21: Overnight events and CXR noted. Worsen subcutaneous emphysema and Rt. Pneumo. CT remains in place and intact to cont. wall suction. Patient remains hemodynamically stable, still on low vent setting. will continue to monitor for now. Patient is also tolerating enteral nutrition via PEGT, TPN D/benjamín. H&H is also trending down, no s/s of any active bleeding. Will continue to trend H&H, transfuse if hgb is less than 7. FWF increased for hypernatremia. Still waiting on possible transfer to [place]. 06/22: JEREMIAS overnight. Subcutaneous emphysema is unchanged. CXR with mild improvement. Patient remains hemodynamically stable. Hydralazine added Q8hr for HTN. FWF increased for hypernatremia. Awaiting transfer to [place] for ENT eval. 06/23: Over 70cc from CT overnight, subcutaneous emphysema with mild improvement. Patient is also tolerating PST this am. Repeat CXR in the am. Patient is still hypertensive, will added norvasc for better control. Continue FWF for hypernatremia and electrolytes replacement as needed, repeat labs in the am. Darin in wbcs this am, patient remains afebrile and on IV Abx, most likely due to IV steroids continue to monitor. Continue to taper IV steroids. Hyperglycemia is also improving, continue current SSI and basal for now. 06/24: Patient is anemic today and transfused 1 unit PRBC, hypokalemia and hypophosphatemia repleted, will continue every 6 H/H for now to monitor for bleeding, steroid taper continues, still awaiting transfer to [place], PT/OT consulted, CCM to talk to case management regarding LTAC transfer. 06/25: Patient responded appropriately to yesterday, placed on pressure support trial today. Per CCM hopefully T-piece in the next 24 to 48 hours and will continue decrease steroids further on . Lujan catheter removed today. 06/26: Patient started T-piece trials, H/H remained stable. Surgery plans to remove chest tube once weaned off ventilator. Increasing her water flush given hypernatremia. 06/27: Chest tube changed to waterseal, T-piece trial trials ongoing. Remains on Zosyn and steroids being tapered. Increasing free water flush, insulin and added 3 times daily insulin. Hospitalist Physical - Constitutional Vitals: Temp Pulse Resp BP Pulse Ox 99.2 F 91 H 22 156/73 100 06/27/21 16:00 06/27/21 16:00 06/27/21 16:00 06/27/21 16:00 06/27/21 16:00 General appearance: Present: no acute distress, obese - EENT Eyes: Present: PERRL, EOM intact ENT: hearing intact, poor dentition - Neck Neck: Present: normal ROM - Respiratory Respiratory effort: normal Respiratory: bilateral: diminished - Cardiovascular Rhythm: regular Heart Sounds: Present: S1 & S2. Absent: systolic murmur, diastolic murmur - Extremities Extremities: no ischemia, pulses intact, pulses symmetrical, No edema, normal temperature, normal color Peripheral Pulses: within normal limits - Abdominal General gastrointestinal: soft, non-tender, non-distended, normal bowel sounds - Integumentary Integumentary: Present: warm, dry - Psychiatric Psychiatric: cooperative - Neurologic Neurologic: CNII-XII intact, no focal deficits, moves all extremities - Allied Health Allied health notes reviewed: nursing, RT, social work HEART Score - HEART Score Troponin: Troponin T < 0.010 ng/mL (0.00-0.029) 06/11/21 23:21 Results - Labs CBC & Chem 7: 06/27/21 04:15 06/27/21 04:15 Labs: Laboratory Last Values WBC 14.3 K/mm3 (4.5-11.0) H 06/27/21 04:15 WBC TNR 06/27/21 04:15 RBC 2.96 M/mm3 (3.65-5.03) L 06/27/21 04:15 RBC TNR 06/27/21 04:15 Hgb 8.1 gm/dl (10.1-14.3) L 06/27/21 04:15 Hgb TNR 06/27/21 04:15 Hct 24.6 % (30.3-42.9) L 06/27/21 04:15 Hct TNR 06/27/21 04:15 MCV 83 fl (79-97) 06/27/21 04:15 MCV TNR 06/27/21 04:15 MCH 27 pg (28-32) L 06/27/21 04:15 MCH TNR 06/27/21 04:15 MCHC 33 % (30-34) 06/27/21 04:15 MCHC TNR 06/27/21 04:15 RDW 23.0 % (13.2-15.2) H 06/27/21 04:15 RDW TNR 06/27/21 04:15 Plt Count 215 K/mm3 (140-440) 06/27/21 04:15 Plt Count TNR 06/27/21 04:15 Lymph % (Auto) 3.5 % (13.4-35.0) L 06/21/21 04:42 [place] % (Auto) 11.7 % (0.0-7.3) H 06/21/21 04:42 Eos % (Auto) 0.0 % (0.0-4.3) 06/21/21 04:42 Baso % (Auto) 0.1 % (0.0-1.8) 06/21/21 04:42 Lymph # (Auto) 0.5 K/mm3 (1.2-5.4) L 06/21/21 04:42 [place] # (Auto) 1.8 K/mm3 (0.0-0.8) H 06/21/21 04:42 Eos # (Auto) 0.0 K/mm3 (0.0-0.4) 06/21/21 04:42 Baso # (Auto) 0.0 K/mm3 (0.0-0.1) 06/21/21 04:42 Add Manual Diff Complete 06/13/21 Unknown Total Counted 100 06/13/21 Unknown Seg Neutrophils % 84.7 % (40.0-70.0) H 06/21/21 04:42 Seg Neuts % (Manual) 88.0 % (40.0-70.0) H 06/13/21 Unknown Band Neutrophils % 2.0 % 06/13/21 Unknown Lymphocytes % (Manual) 4.0 % (13.4-35.0) L 06/13/21 Unknown Reactive Lymphs % (Man) 0 % 06/13/21 Unknown Monocytes % (Manual) 6.0 % (0.0-7.3) 06/13/21 Unknown Eosinophils % (Manual) 0 % (0.0-4.3) 06/13/21 Unknown Basophils % (Manual) 0 % (0.0-1.8) 06/13/21 Unknown Metamyelocytes % 0 % 06/13/21 Unknown Myelocytes % 0 % 06/13/21 Unknown Promyelocytes % 0 % 06/13/21 Unknown Blast Cells % 0 % 06/13/21 Unknown Nucleated RBC % Not Reportable 06/13/21 Unknown Seg Neutrophils # 12.8 K/mm3 (1.8-7.7) H 06/21/21 04:42 Seg Neutrophils # Man 19.8 K/mm3 (1.8-7.7) H 06/13/21 Unknown Band Neutrophils # 0.5 K/mm3 06/13/21 Unknown Lymphocytes # (Manual) 0.9 K/mm3 (1.2-5.4) L 06/13/21 Unknown Abs React Lymphs (Man) 0.0 K/mm3 06/13/21 Unknown Monocytes # (Manual) 1.4 K/mm3 (0.0-0.8) H 06/13/21 Unknown Eosinophils # (Manual) 0.0 K/mm3 (0.0-0.4) 06/13/21 Unknown Basophils # (Manual) 0.0 K/mm3 (0.0-0.1) 06/13/21 Unknown Metamyelocytes # 0.0 K/mm3 06/13/21 Unknown Myelocytes # 0.0 K/mm3 06/13/21 Unknown Promyelocytes # 0.0 K/mm3 06/13/21 Unknown Blast Cells # 0.0 K/mm3 06/13/21 Unknown WBC Morphology Not Reportable 06/13/21 Unknown Hypersegmented Neuts Not Reportable 06/13/21 Unknown Hyposegmented Neuts Not Reportable 06/13/21 Unknown Hypogranular Neuts Not Reportable 06/13/21 Unknown Smudge Cells Not Reportable 06/13/21 Unknown Toxic Granulation 2+ 06/13/21 Unknown Toxic Vacuolation Not Reportable 06/13/21 Unknown Dohle Bodies Not Reportable 06/13/21 Unknown Pelger-Huet Anomaly Not Reportable 06/13/21 Unknown Dennis Rods Not Reportable 06/13/21 Unknown Platelet Estimate Consistent w auto 06/13/21 Unknown Clumped Platelets Not Reportable 06/13/21 Unknown Plt Clumps, EDTA Not Reportable 06/13/21 Unknown Large Platelets Not Reportable 06/13/21 Unknown Giant Platelets Not Reportable 06/13/21 Unknown Platelet Satelliting Not Reportable 06/13/21 Unknown Plt Morphology Comment Not Reportable 06/13/21 Unknown RBC Morphology Not Reportable 06/13/21 Unknown Dimorphic RBCs Not Reportable 06/13/21 Unknown Polychromasia Few 06/13/21 Unknown Hypochromasia 2+ 06/13/21 Unknown Poikilocytosis Not Reportable 06/13/21 Unknown Anisocytosis 1+ 06/13/21 Unknown Microcytosis Not Reportable 06/13/21 Unknown Macrocytosis Not Reportable 06/13/21 Unknown Spherocytes Not Reportable 06/13/21 Unknown Pappenheimer Bodies Not Reportable 06/13/21 Unknown Sickle Cells Not Reportable 06/13/21 Unknown Target Cells Not Reportable 06/13/21 Unknown Tear Drop Cells Not Reportable 06/13/21 Unknown Ovalocytes Not Reportable 06/13/21 Unknown Stomatocytes Few 06/12/21 01:45 Helmet Cells Not Reportable 06/13/21 Unknown [place]-Lyman Bodies Not Reportable 06/13/21 Unknown Myrtle Rings Not Reportable 06/13/21 Unknown [place] Cells Not Reportable 06/13/21 Unknown Bite Cells Not Reportable 06/13/21 Unknown Crenated Cell Not Reportable 06/13/21 Unknown Elliptocytes Not Reportable 06/13/21 Unknown Acanthocytes (Spur) Not Reportable 06/13/21 Unknown Rouleaux Not Reportable 06/13/21 Unknown Hemoglobin C Crystals Not Reportable 06/13/21 Unknown Schistocytes Not Reportable 06/13/21 Unknown Malaria parasites Not Reportable 06/13/21 Unknown Edin Bodies Not Reportable 06/13/21 Unknown Hem Pathologist Commnt No 06/13/21 Unknown PT 18.3 Sec. (12.2-14.9) H 06/20/21 04:33 INR 1.37 (0.87-1.13) H 06/20/21 04:33 APTT 26.4 Sec. (24.2-36.6) 06/13/21 Unknown Fibrinogen 546 mg/dl (211-480) H 06/13/21 Unknown D-Dimer 1244.63 ng/mlDDU (0-234) H 06/13/21 Unknown ABG pH 7.426 pH Units (7.350-7.450) 06/21/21 04:20 POC ABG pCO2 25.6 mmHg (32.0-48.0) L 06/13/21 04:31 ABG pCO2 35.1 mm Hg 06/21/21 04:20 POC ABG pO2 138.8 mmHg (83-108) H 06/13/21 04:31 ABG pO2 98.5 mm Hg (80.0-90.0) H 06/21/21 04:20 POC ABG HCO3 21.4 06/13/21 04:31 ABG HCO3 22.6 mmol/L (20.0-26.0) 06/21/21 04:20 ABG O2 Saturation 97.7 % (95.0-99.0) 06/21/21 04:20 ABG O2 Content 9.9 (0.0-44) 06/21/21 04:20 POC ABG Base Excess -0.7 06/13/21 04:31 ABG Base Excess -1.6 mmol/L (-2.0-3.0) 06/21/21 04:20 ABG Hemoglobin 7.2 gm/dl (12.0-16.0) L 06/21/21 04:20 ABG Oxyhemoglobin 98.1 (94-98) H 06/13/21 04:31 ABG Carboxyhemoglobin 1.7 % (0.0-5.0) 06/21/21 04:20 ABG Methemoglobin 0.5 % (0.0-1.5) 06/21/21 04:20 Oxyhemoglobin 95.5 % (95.0-99.0) 06/21/21 04:20 Carboxyhemoglobin 0.8 (0.5-1.5) 06/13/21 04:31 FiO2 30 % 06/21/21 04:20 FiO2 % 40.0 06/13/21 04:31 Sodium 150 mmol/L (137-145) H 06/27/21 04:15 Potassium 3.6 mmol/L (3.6-5.0) 06/27/21 04:15 Chloride 113.8 mmol/L (98-107) H 06/27/21 04:15 Carbon Dioxide 24 mmol/L (22-30) 06/27/21 04:15 Anion Gap 16 mmol/L 06/27/21 04:15 BUN 26 mg/dL (7-17) H 06/27/21 04:15 Creatinine 0.9 mg/dL (0.6-1.2) 06/27/21 04:15 Estimated GFR > 60 ml/min 06/27/21 04:15 BUN/Creatinine Ratio 29 % 06/27/21 04:15 Glucose 246 mg/dL (65-100) H 06/27/21 04:15 POC Glucose 224 mg/dL (70-105) H 06/27/21 16:06 Lactic Acid 5.30 mmol/L (0.7-2.0) H* 06/13/21 15:45 Calcium 7.8 mg/dL (8.4-10.2) L 06/27/21 04:15 Phosphorus 2.90 mg/dL (2.5-4.5) 06/27/21 04:15 Magnesium 2.20 mg/dL (1.7-2.3) 06/27/21 04:15 Total Bilirubin 0.40 mg/dL (0.1-1.2) 06/15/21 03:56 AST 64 units/L (5-40) H 06/15/21 03:56 ALT 106 units/L (7-56) H 06/15/21 03:56 Alkaline Phosphatase 55 units/L (35-129) 06/15/21 03:56 Troponin T < 0.010 ng/mL (0.00-0.029) 06/11/21 23:21 C-Reactive Protein 3.30 mg/dL (0.00-1.30) H 06/16/21 04:32 Total Protein 5.1 g/dL (6.3-8.2) L 06/15/21 03:56 Albumin 2.9 g/dL (3.9-5) L 06/15/21 03:56 Albumin/Globulin Ratio 1.3 % 06/15/21 03:56 Triglycerides 254 mg/dL (2-149) H 06/21/21 04:42 Urine Color Yellow (Yellow) 06/12/21 17:00 Urine Turbidity Clear (Clear) 06/12/21 17:00 Urine pH 5.0 (5.0-7.0) 06/12/21 17:00 Ur Specific [place] 1.035 (1.003-1.030) H 06/12/21 17:00 Urine Protein 30 mg/dl mg/dL (Negative) 06/12/21 17:00 Urine Glucose (UA) 50 mg/dL (Negative) 06/12/21 17:00 Urine Ketones Tr mg/dL (Negative) 06/12/21 17:00 Urine Blood Neg (Negative) 06/12/21 17:00 Urine Nitrite Neg (Negative) 06/12/21 17:00 Urine Bilirubin Neg (Negative) 06/12/21 17:00 Urine Urobilinogen < 2.0 mg/dL (<2.0) 06/12/21 17:00 Ur Leukocyte Esterase Neg (Negative) 06/12/21 17:00 Urine WBC (Auto) < 1.0 /HPF (0.0-6.0) 06/12/21 17:00 Urine RBC (Auto) < 1.0 /HPF (0.0-6.0) 06/12/21 17:00 Urine Creatinine 81.1 mg/dL (0.1-20.0) H 06/15/21 10:40 Urine Sodium 42 mmol/L 06/15/21 10:40 Coronavirus (PCR) Negative (Negative) 06/12/21 09:50 Blood Type O POSITIVE 06/24/21 06:40 Antibody Screen Negative 06/24/21 06:40 Crossmatch See Detail 06/24/21 06:40 Lujan/IV: Voiding Method Indwelling Catheter Active Medications - Current Medications Current Medications: Generic Name Dose Route Start Last Admin Trade Name Freq PRN Reason Stop Dose Admin Amlodipine Besylate 5 mg 06/23/21 10:00 06/27/21 10:14 Amlodipine 5 Mg Tab PO 5 mg QDAY JOLENE Administration Lipase/Protease/Amylase 1 each 06/19/21 19:20 Lipase 10,500/Protease 25,000/Amylase 43,750 (Units) Dr Melgar FEEDTUBE PRN PRN For Clogged Feeding Tube Atorvastatin Calcium 20 mg 06/22/21 22:00 06/26/21 22:08 Atorvastatin 20 Mg Tab PO 20 mg QHS JOLENE Administration Docusate Sodium 100 mg 06/20/21 10:00 06/27/21 10:01 Docusate Sodium 100 Mg/10 Ml Oral Liqd PO 100 mg BID JOLENE Administration Famotidine 20 mg 06/24/21 22:00 06/27/21 10:01 Famotidine 20 Mg Tab FEEDTUBE 20 mg BID JOLENE Administration Fentanyl 50 mcg 06/20/21 12:00 06/26/21 01:25 Fentanyl 100 Mcg/2 Ml Inj IV 50 mcg Q2HR PRN Administration For CPOT greater than 3 Fentanyl 50 mcg 06/24/21 21:50 Fentanyl 100 Mcg/2 Ml Inj IV Q10MIN PRN ANALGESIA Hydralazine HCl 100 mg 06/22/21 19:00 06/27/21 13:35 Hydralazine 100 Mg Tab FEEDTUBE 100 mg Q8HR JOLENE Administration Hydromorphone HCl 0.5 mg 06/11/21 20:42 06/27/21 06:18 Hydromorphone 1 Mg/1 Ml Inj IV 0.5 mg Q3H PRN Administration Pain , Severe (7-10) NORepinephrine/NS 8 MG-250 ML 8 mg in 250 mls @ 3.75 mls/hr 06/12/21 02:00 06/20/21 12:13 Norepinephrine/Ns 8 Mg-250 Ml (Double Conc) IV 0 mcg/min TITRATE JOLENE 0 mls/hr Titration Protocol 2 MCG/MIN Fentanyl Citrate 2,000 mcg in 100 mls @ 5.466 mls/hr 06/24/21 22:00 06/27/21 03:16 Fentanyl Drip Premix IV 0 mcg/kg/hr TITR JOLENE 0 mls/hr Titration Protocol 1 MCG/KG/HR Piperacillin Sod/Tazobactam Sod 4.5 gm in 100 mls @ 200 mls/hr 06/25/21 12:00 06/27/21 13:35 Zosyn/Ns 4.5gm/100ml IV 200 mls/hr Q6HR JOLENE Administration Protocol Insulin Glargine 30 units 06/27/21 10:00 06/27/21 10:00 Insulin Glargine 100 Units/Ml SUB-Q 30 units BID JOLENE Administration Insulin Human Lispro 0 unit 06/12/21 12:00 06/27/21 13:35 Insulin Lispro 100 Unit/Ml SUB-Q 4 unit Q6HR JOLENE Administration Protocol Insulin Human Lispro 3 unit 06/26/21 12:00 06/27/21 13:35 Insulin Lispro 100 Unit/Ml SUB-Q 3 unit Q6HR JOLENE Administration Labetalol HCl 10 mg 06/21/21 18:00 06/27/21 00:53 Labetalol 20 Mg/4 Ml Inj IV 10 mg Q4HR PRN Administration Hypertension Metoclopramide HCl 10 mg 06/11/21 20:42 Metoclopramide 10 Mg/2 Ml Inj IV Q6H PRN Nausea And Vomiting Ondansetron HCl 4 mg 06/11/21 20:42 Ondansetron 4 Mg/2 Ml Inj IV Q3H PRN Nausea And Vomiting Prednisone 20 mg 06/28/21 10:00 Prednisone 5 Mg/5 Ml Oral Liquid FEEDTUBE 07/03/21 09:59 QDAY JOLENE Senna 17.6 mg 06/20/21 10:00 06/27/21 10:01 Sennosides Oral Liqd 8.8 Mg/5 Ml Oral Liqd PO 17.6 mg Q12HR JOLENE Administration Simple Syrup 15 ml 06/19/21 19:20 Simple Syrup 15 Ml FEEDTUBE PRN PRN Hypoglycemia Simple Syrup 30 ml 06/19/21 19:20 Simple Syrup 15 Ml FEEDTUBE PRN PRN Hypoglycemia Sodium Bicarbonate 325 mg 06/19/21 19:20 Sodium Bicarbonate 325 Mg Tab FEEDTUBE PRN PRN For Clogged Feeding Tube Sodium Chloride 10 ml 06/11/21 22:00 06/27/21 10:00 Sodium Chloride 0.9% 10 Ml Flush Syringe IV 10 ml BID JOLENE Administration Sodium Chloride 10 ml 06/11/21 20:42 Sodium Chloride 0.9% 10 Ml Flush Syringe IV PRN PRN LINE FLUSH Nutrition/Malnutrition Assess - Dietary Evaluation Nutrition/Malnutrition Findings: Nutrition Notes Start: 06/16/21 12:10 Freq: Status: Active Protocol: Document 06/27/21 15:42 CANDIDO (Rec: 06/27/21 15:54 CANDIDO [id number]) Nutrition Notes Initial or Follow up Brief Note Current Diet TF-Vital AF 1.2 Quan @ 50 ml/hr (since D 06/21). Height 5 ft 8 in Weight 109.316 kg [place] Body Weight (kg) 63.63 BMI 36.6 Weight change and time frame No body weight change reported in 11 days. Weight Status Obese Subjective/Other Information RD consult for routine F/U on TF tolerance. TF continues as prescribed, with no significant events noted. Pt continues on Mechanical Ventilation through Tracheostomy, well tolerated, according to Progress notes. Pt still waiting for transfer to [place]. Percent of energy/protein needs met: Prescribed Vital AF 1.2 Quan @ 50 ml/hr provides for energy/ protein needs (1,440 Kcal/90 g ) during LOS; 105% Kcal and 71 % AA. #1 Nutrition Diagnosis Inadequate oral intake Diagnosis Progress(for reassessment Continues documentation) Is patient on ventilator? Yes Is Patient Ambulatory and/or Out of Bed No REE-([facility]-confined to bed) [phone] Calculation Used for Recommendations 65-70% energy needs Additional Notes Energy needs: 1280-1379kcal/ day Pro needs 2g/kg IBW: 127g/day Fluid needs 1ml/kcal Nutrition Intervention Nutrition Support: Continue Vital AF 1.2 Quan @ 50 ml/hr. Flush: 200 ml water Q 4 hr. When hypernatermia resolved, provide 80 ml water flush Q 4 hr. Kcal 1,440 Protein (gm) 90 Carbohydrates (gm) 133 Fat (gm) 65 Fluid (mL) 973 Fiber (gm) 6 % RDI: 105% Kcal; 71% AA. Goal #1 Provide at least 75% of energy /protein needs through Enteral Feeding during LOS. Goal #2 Maintain body weight within +/ -3% of admission body weight during LOS. Follow-Up By: 07/01/21 Additional Comments Continue monitoring Mechanical Ventilation, Na/Flush, TF tolerance and BM.
[2021-06-28] MEDS: HYDROmorphone 1 MG/1 ML INJ IV PRN ×2 (01:17→14:42)
[2021-06-28] MEDS: FREE WATER PO SCH ×5 (02:00→17:18)
[2021-06-28 05:21] LABS: Hemoglobin 8.2 gm/dl (10.1-14.3); Mean Corpuscular HGB Conc 33 % (30-34); Mean Corpuscular Volume 82 fl (79-97); Platelet Count 229 K/mm3 (140-440); Red Blood Count 3.05 M/mm3 (3.65-5.03)
[2021-06-28 05:25] LABS: Red Cell Distribution Width 22.6 % (13.2-15.2)
[2021-06-28 05:37] LABS: BUN/Creatinine Ratio 30; Blood Urea Nitrogen 24 mg/dL (7-17); Calcium 8.1 mg/dL (8.4-10.2); Hemolysis Index 1
[2021-06-28] MEDS: hydrALAZINE 100 MG TAB FEEDTUBE SCH ×3 (06:17→21:58)
[2021-06-28] MEDS: INSULIN LISPRO 100 UNIT/ML SUB-Q SCH ×8 (06:17→17:28)
[2021-06-28] MEDS: PIPERACIL/TAZOBACTA 4.5/NS 100 4.5 GM/100 ML VIAL IV SCH ×3 (06:17→17:28)
[2021-06-28] MEDS ORDERED: DEXTROSE 5% IN WATER 1,000 ML IV SCH (08:00)
[2021-06-28] MEDS: predniSONE 5 MG/5 ML ORAL LIQUID FEEDTUBE SCH (09:46)
[2021-06-28] MEDS: POTASSIUM CHLORIDE 20 MEQ PACKET FEEDTUBE SCH ×2 (09:46→12:02)
[2021-06-28] MEDS: FAMOTIDINE 20 MG TAB FEEDTUBE SCH ×2 (09:46→21:58)
[2021-06-28] MEDS: amLODIPine 5 MG TAB PO SCH (09:46)
[2021-06-28] MEDS: SENNOSIDES ORAL LIQD 8.8 MG/5 ML ORAL LIQD PO SCH ×2 (09:47→21:57)
[2021-06-28] MEDS: DOCUSATE SODIUM 100 MG/10 ML ORAL LIQD PO SCH ×2 (09:47→21:57)
[2021-06-28] MEDS: INSULIN GLARGINE 100 UNITS/ML SUB-Q SCH ×2 (09:47→21:57)
--- NOTE | 2021-06-28 12:07 | Progress Note ---
Assessment and Plan Cultures: 06/12/2021 blood cultures: no growth A/P: 76-year-old female with diabetes, hypertension, gout was admitted to the hospital on 06/11/2021 with swelling of the submandibular region, tongue and difficulty breathing, labs also revealed severe coagulopathy due to Coumadin. 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 Shock resolved. s/p tracheostomy and PEG tube placement 06/19/2021. #Acute respiratory failure: s/p trach #Right-sided pneumothorax: s/p chest tube. #Diabetes mellitus, uncontrolled #Coagulopathy: Secondary to Coumadin. #Acute blood loss anemia Recs: -continue Zosyn -continue on steroid taper per pulm/ICU -if leucocytosis persists after being off steroids, obtain CT neck with IV contrast to rule out any abscess Silvana Barros MD, FACP, [facility] ([facility] O: [phone] F: [phone] Subjective Date of service: 06/28/21 Interval history: No fever. Awake and alert, on T-piece. No distress Objective - Exam Narrative Exam: Physical Exam: Constitutional: awake, alert, on T-piece Head, Ears, Nose: Normocephalic, atraumatic. External ears, nose normal Eyes: Conjunctivae/corneas clear. No icterus. No ptosis. Neck: trach + Cardiovascular: S1, S2 + Respiratory: AE fair b/l, R chest tube + GI: Soft, bowel sounds +, PEG + Musculoskeletal: pedal edema + Skin: No rash or abscess Hem/Lymphatic: No palpable cervical or supraclavicular nodes. No lymphangitis Psych: no agitation Neurological: awake, alert, responsive - Constitutional Vitals: Vital Signs Temp Pulse Resp BP Pulse Ox 99.3 F 94 H 19 143/79 100 06/28/21 04:00 06/28/21 11:11 06/28/21 11:11 06/28/21 11:00 06/28/21 11:11 Temperature -Last 24 Hours Temperature 99.3 F Temperature 99 F Temperature 98.9 F Temperature 99.2 F - Labs CBC & Chem 7: 06/28/21 04:00 06/28/21 04:00 Labs: Abnormal lab results 06/27/21 06/27/21 06/28/21 Range/Units 16:06 23:49 04:00 WBC 15.4 H (4.5-11.0) K/mm3 RBC 3.05 L (3.65-5.03) M/mm3 Hgb 8.2 L (10.1-14.3) gm/dl Hct 25.0 L (30.3-42.9) % MCH 27 L (28-32) pg RDW 22.6 H (13.2-15.2) % Sodium (137-145) mmol/L Potassium (3.6-5.0) mmol/L Chloride (98-107) mmol/L BUN (7-17) mg/dL Glucose (65-100) mg/dL POC Glucose 224 H 195 H (70-105) mg/dL Calcium (8.4-10.2) mg/dL 06/28/21 06/28/21 06/28/21 Range/Units 04:00 05:05 11:47 WBC (4.5-11.0) K/mm3 RBC (3.65-5.03) M/mm3 Hgb (10.1-14.3) gm/dl Hct (30.3-42.9) % MCH (28-32) pg RDW (13.2-15.2) % Sodium 152 H (137-145) mmol/L Potassium 3.0 L (3.6-5.0) mmol/L Chloride 114.9 H (98-107) mmol/L BUN 24 H (7-17) mg/dL Glucose 158 H (65-100) mg/dL POC Glucose 121 H 164 H (70-105) mg/dL Calcium 8.1 L (8.4-10.2) mg/dL
--- NOTE | 2021-06-28 13:15 | XRay Report ---
CHEST 1 VIEW INDICATION: Follow-up chest tube to waterseal. COMPARISON: 06/25/2021 FINDINGS: Support devices: Stable Heart: Stable Lungs/Pleura: Bilateral lung opacities appear unchanged. No recurrent pneumothorax is visualized. No large pleural fluid collection. Additional findings: Subcutaneous emphysema throughout the chest wall has decreased by 50%. IMPRESSION: No evidence for pneumothorax. Signer Name: Ghanshyam De Luna Jr, MD Signed: 06/28/2021 1:11 PM Workstation Name: [id number]
[2021-06-28] MEDS: fentaNYL 100 MCG/2 ML INJ IV PRN (16:44)
--- NOTE | 2021-06-28 16:58 | Progress Note ---
<JORGEKIT JosseCandelaria - Last Filed: 06/28/21 17:04> Assessment and Plan Assessment and plan: This is a 76-year-old female with HTN, Coumadin use, dental caries, PVD s/p stenting to right leg, DM, arthritis, depression, gout and ? Pulmonary hypertension admitted with Jeremiah's angina s/p emergent cric with bleeding, right sided pneumothorax, supratherapeutic INR, hypernatremia, hyperchloremia, severe metabolic acidosis, hyperglycemia and hypocalcemia Neuro: Sedated, h/o depression, arthritis -Sedated fentanyl gtt -RASS goal 0 to -1 -Avoid delirium -Reorientation as needed -Maintain sleep-wake cycle -PT consulted; recommends LTAC Cardiac: S/p cardiac arrest, h/o htn, PVD s/p stenting Right leg -06/14 cardiac arrest with ROSC -S/p vasopressor support with Levophed and Fabian-Synephrine -Blood pressure monitoring per protocol -Antihypertensive regimen: Hydralazine 100 mg every 8 -06/13 Echocardiogram EF 65-70% Respiratory: Acute hypoxic respiratory failure, right pneumothorax -CCM consulted, appreciate recommendations -S/p emergent cricothyroidectomy with surgery with 8.00 ETT -s/p trach 06/19 with surgery (#[address]) -A.m. vent settings: Assist-control rate 18, tidal volume 450, PEEP 6, FiO2 30% -T-piece trials started 06/26 -A.m. CXR noted -Right chest tube replaced by surgery -CT to water seal 06/27 -Changed to larger bore on 06/13 -Planned for removal when weaned off ventilator -Postop CXR shows possible hydropneumothorax on right side -06/13 bronchoscopy showed possible blood clot in left lung which may be acting as mucous plug however it was left in place due to possible bleeding inside lung if removed. -CXR post cardiac arrest shows clearance of mucous plug -06/16 CT chest shows moderate right pneumothorax with collapse of right upper lobe, right thoracostomy tube terminates at the collapsed right upper lobe, bilateral bronchus opacities compatible with infectious/inflammatory etiology, bilateral small pleural effusion, extensive subcutaneous air, small fluid collection in the anterior mediastinum is nonspecific -VAP bundle -SPO2 monitoring GI: Protein calorie malnutrition -24 hours +1385 mL -CT 190 mL -PPI -BR: senna, colace -s/p TPN -Nutrition consult for tube feeding -S/p PEG : Acute kidney injury possibly secondary to vasomotor nephropathy, metabolic acidosis, hypokalemia, hypernatremia, hyperchloremia -Strict intake and output -Renally dose medications -Avoid nephrotoxic medications -Daily weights -Consider nephrology consult if worsens -S/p 7 L LR bolus -FeNa 0.067 -Replete potassium -Free water flush to 300 every 4 -Free water deficit 2.08 L 06/25 -D5W gtt for 1L ID: 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 dental caries -CT neck with contrast showed a significant right floor of mild swelling with extension into the submandibular and submental spaces, significant thickening and inflammation involving the right pharyngeal wall, with the parapharyngeal and retropharyngeal spaces at the level of the thyroid cartilage, epiglottis significantly swollen and so are the aryepiglottic folds resulting in significant airway narrowing at this level, no lymphadenopathy, symmetric submandibular and parathyroid glands, S few scattered caries but no periapical lucencies, nonspecific calcification along the right lateral oropharynx, no definite stone seen within the territory of the submandibular gland ducts, no suspicious rashes lesion -Infectious disease and general surgery consulted, appreciate recommendations -s/p cricothyroidectomy -Will follow surgery to direction and treatment of injury -Per surgery may have mucosal injury -Intra-Op findings include post pharyngeal swelling and bruising -Solu-Medrol 125 every 8 -tapering -Per ID: if leucocytosis persists after being off steroids, obtain CT neck with IV contrast to rule out any abscess -Antibiotic therapy Zosyn -COVID-19 PCR negative -f/u blood culture -Monitor WBC and temperature curve -s/p 5L normal saline bolus in ED, 7 L LR bolus in ICU Heme: Coagulopathy, supratherapeutic INR, acute blood loss anemiq, possible component of hemorrhagic shock -Patient is on Coumadin at home -S/p 5 FFP, 8 PRBC, vitamin K x3 -Trend CBC -Presented with H/H of 10.3/34.6 and decreased to 6.7/22.4 -INR 8.18-> 4.55-> 2.1-> 1.23-> 1.16-> 1.31 -Monitor INR -Transfuse hemoglobin less than 7 -Serial H&H -Monitor for signs of bleeding -SCDs to BLE while in bed -Avoid chemical anticoagulation in setting of recent blood loss anemia Endo: Hyperglycemia, h/o DM, gout -S/p Lantus 25 units x 1 -Lantus subcu, titrate as needed -Lispro TID -Avoid hypoglycemia -SSI -Accu-Cheks q. 6hr The high probability of a clinically significant, sudden or life threatening deterioration of the [multi] system(s) required my full and direct attention, intervention and personal management. The aggregate critical care time was [60] minutes. This time is in addition to time spent performing reported procedures but includes the following: [x] Data Review and interpretation [x] Patient assessment and monitoring of vital signs [x] Documentation [x] Medication orders and management Disposition Plan: icu Total Time Spent with Patient (Minutes): 60 History Interval history: This is a 76-year-old female with HTN, Coumadin use , dental caries, PVD s/p stenting right leg, DM, arthritis, depression, gout, and ? Pulmonary hypertension who presented to emergency department on 06/11 with complaints of pain to mandible area and throat and swelling. Work-up in the emergency department included CT scan of the head and neck which showed findings consistent with Jeremiah's angina and anesthesia was called for intubation. Anesthesia intubation attempts were unsuccessful and surgery was consulted for cricothyroidotomy which was unsuccessful in the emergency department and patient was taken to the OR for tracheostomy. Intubation procedure was complicated by development of pneumothorax and excessive bleeding. Patient given multiple FFP's and vitamin K several times who attempts to decrease INR. Lab work showed leukocytosis, supratherapeutic INR, hypernatremia, hyperchloremia, severe me tabolic acidosis, hyperglycemia, hypocalcemia. Patient was admitted to the hospitalist service with consults to [facility], general surgery, infectious disease. Hospital course to date: 06/12: Patient received additional 2 units FFP and 1 unit PRBC and vitamin K today. Overnight critical care placed a femoral CVL. Patient sedated on fentanyl, propofol and Versed. Currently on Fabian-Synephrine and Levophed for blood pressure maintenance. Remains amatory support. Infectious disease consulted. Started on sliding scale insulin and recultured. COVID-19 PCR pending. Surgery at bedside to place chest tube. 06/13: Patient was taken back to the OR today for exchange cricothyroid to possible tracheostomy. Patient returned with ETT. Chest tube was changed to larger size in the OR. Patient was hypotensive, tachycardic, hypoxic in the OR and received hespan, albumin and an A-line. Upon arrival patient was increased to max dose Levophed for hypotension which has resolved. Titrating vasopressors as tolerated. Remains on sedation with 3 agents. Apparently patient was not ventilating her left lung Intra-Op. Noted to have subcu hematoma and trauma to postpharyngeal area. Questionable decrease cardiac wall motion noted in OR-> will order echocardiogram to further investigate. Patient received additional PRBC today. DIC panel resulted as normal. Patient BUN/creatinine did increase as well as noted to have lactic acidosis. May need IV bolus in addition to pressor use. Likely bronc with Pulmicort today as repeat CXR showed right possible pneumo hydrothorax 06/14: Antibiotics changed to Zosyn per ID, surgical packing removed from neck and makeshift [place] drain placed by surgery and old chronic thyroidectomy site. CXR was completed and RN heard gurgling and blood was noted on dressing. ST elevation noted on bedside monitor and patient was hypoxic. FiO2 increased to 100%. However shortly after patient lost her pulse and ACLS was initiated. Patient received 3 rounds of epinephrine and ROSC was achieved. Stat portable CXR showed resolution of lower lobe collapse on the left and stable right-sided chest tube with hemothorax. CCM updated family. Patient H/H noted to be 7.2/ 23.2 and did RN to transfuse prepared PRBC which [facility] blood bank. Bedside echo completed. 06/15: Off sedation, intermittently follows commands, remains on the prednisone. Surgery will reassess airway on Thursday to see if any further support is required. Urine studies indicate prerenal, given IV bolus and started on Clinimix today. 06/16: Patient restarted on fentanyl drip due to hypertension. Given more LR due to CR improvement post LR yesterday. Patient started on Lantus subcu after given one-time dose of Lantus. PICC placed today. Patient had a CT chest today which showed no mediasinusitis but extensive subcutaneous air. 06/17: General Surgery recommended transferring patient to a ENT specialized facility. Placed a call to [facility], spoke with the sewing machine operator semiautomatic, Dr. Duckworth, who stated that a transfer is possible as long their ENT team accept the patient. Awaiting on a final response. Continue current supportive measures. Basal insulin adjusted for hyperglycemia. 06/18: JEREMIAS overnight. Hypertensive this am, PRN Hydralazine for SBP greater than 160. Remains hyperglycemic, patient is on IV steroids and TPN, basal insulin adjusted. Plan for possible transfer to [place] once an ICU bed is available. 06/19: Low SPO2 and hypotension overnight required Levophed for a short time. Overnight CXR noted with no significant changed. Patient is stable this am and off pressors. Plan for possible Trach and PEG today by General Surgery. 06/20: s/p Trach and PEG. Some bleeding overnight s/p X1 dose of Vitamin K. The bleeding resolved this am, H&H remains stable. Attempted a SAT this am, patient went into SVT, HR in the 160-170 which resolved once sedations were resumed. Plan is to continue to sedation for now, attempt to wean off propofol for a RASS goal of 0 to -2. D/C CCM plan is to wean off sedation as tolerated for PST for possible extubation. Okay to use PEGT per Gen. Surgery. Nutrition consulted for TF management, TF to start tonight once current TPN bag is completed. BG remains elevated, continue current SSI and basal for now, will start tapering IV steroids tomorrow. FWF added for hyponatremia. Wean off pressors as tolerated for MAP above 65. Possible transfer to [place] for ENT eval. 06/21: Overnight events and CXR noted. Worsen subcutaneous emphysema and Rt. Pneumo. CT remains in place and intact to cont. wall suction. Patient remains hemodynamically stable, still on low vent setting. will continue to monitor for now. Patient is also tolerating enteral nutrition via PEGT, TPN D/benjamín. H&H is also trending down, no s/s of any active bleeding. Will continue to trend H&H, transfuse if hgb is less than 7. FWF increased for hypernatremia. Still waiting on possible transfer to [place]. 06/22: JEREMIAS overnight. Subcutaneous emphysema is unchanged. CXR with mild improvement. Patient remains hemodynamically stable. Hydralazine added Q8hr for HTN. FWF increased for hypernatremia. Awaiting transfer to [place] for ENT eval. 06/23: Over 70cc from CT overnight, subcutaneous emphysema with mild improvement. Patient is also tolerating PST this am. Repeat CXR in the am. Patient is still hypertensive, will added norvasc for better control. Continue FWF for hypernatremia and electrolytes replacement as needed, repeat labs in the am. Darin in wbcs this am, patient remains afebrile and on IV Abx, most likely due to IV steroids continue to monitor. Continue to taper IV steroids. Hyperglycemia is also improving, continue current SSI and basal for now. 06/24: Patient is anemic today and transfused 1 unit PRBC, hypokalemia and hypophosphatemia repleted, will continue every 6 H/H for now to monitor for bleeding, steroid taper continues, still awaiting transfer to [place], PT/OT consulted, CCM to talk to case management regarding LTAC transfer. 06/25: Patient responded appropriately to yesterday, placed on pressure support trial today. Per CCM hopefully T-piece in the next 24 to 48 hours and will continue decrease steroids further on . Lujan catheter removed today. 06/26: Patient started T-piece trials, H/H remained stable. Surgery plans to remove chest tube once weaned off ventilator. Increasing her water flush given hypernatremia. 06/27: Chest tube placed to waterseal, T-piece trial trials ongoing. Remains on Zosyn and steroids being tapered. Increasing free water flush, insulin and added 3 times daily insulin. 06/28: Hypernatremia persists, started on D5W for 1 L, replace potassium. Chest tube remains to waterseal. Hospitalist Physical - Constitutional Vitals: Temp Pulse Resp BP Pulse Ox 98.7 F 95 H 18 149/71 97 06/28/21 12:00 06/28/21 16:00 06/28/21 16:00 06/28/21 16:00 06/28/21 16:00 General appearance: Present: no acute distress, obese - EENT Eyes: Present: PERRL, EOM intact ENT: hearing intact - Neck Neck: Present: normal ROM - Respiratory Respiratory effort: normal Respiratory: bilateral: diminished - Cardiovascular Rhythm: regular Heart Sounds: Present: S1 & S2. Absent: systolic murmur, diastolic murmur - Extremities Extremities: no ischemia, pulses intact, pulses symmetrical, No edema, normal temperature, normal color Peripheral Pulses: within normal limits - Abdominal General gastrointestinal: soft, non-tender, non-distended, normal bowel sounds - Integumentary Integumentary: Present: warm, dry - Psychiatric Psychiatric: cooperative - Neurologic Neurologic: CNII-XII intact, no focal deficits, moves all extremities - Allied Health Allied health notes reviewed: nursing, RT, social work HEART Score - HEART Score Troponin: Troponin T < 0.010 ng/mL (0.00-0.029) 06/11/21 23:21 Results - Labs CBC & Chem 7: 06/28/21 04:00 06/28/21 04:00 Labs: Laboratory Last Values WBC 15.4 K/mm3 (4.5-11.0) H 06/28/21 04:00 RBC 3.05 M/mm3 (3.65-5.03) L 06/28/21 04:00 Hgb 8.2 gm/dl (10.1-14.3) L 06/28/21 04:00 Hct 25.0 % (30.3-42.9) L 06/28/21 04:00 MCV 82 fl (79-97) 06/28/21 04:00 MCH 27 pg (28-32) L 06/28/21 04:00 MCHC 33 % (30-34) 06/28/21 04:00 RDW 22.6 % (13.2-15.2) H 06/28/21 04:00 Plt Count 229 K/mm3 (140-440) 06/28/21 04:00 Lymph % (Auto) 3.5 % (13.4-35.0) L 06/21/21 04:42 Leake % (Auto) 11.7 % (0.0-7.3) H 06/21/21 04:42 Eos % (Auto) 0.0 % (0.0-4.3) 06/21/21 04:42 Baso % (Auto) 0.1 % (0.0-1.8) 06/21/21 04:42 Lymph # (Auto) 0.5 K/mm3 (1.2-5.4) L 06/21/21 04:42 Leake # (Auto) 1.8 K/mm3 (0.0-0.8) H 06/21/21 04:42 Eos # (Auto) 0.0 K/mm3 (0.0-0.4) 06/21/21 04:42 Baso # (Auto) 0.0 K/mm3 (0.0-0.1) 06/21/21 04:42 Add Manual Diff Complete 06/13/21 Unknown Total Counted 100 06/13/21 Unknown Seg Neutrophils % 84.7 % (40.0-70.0) H 06/21/21 04:42 Seg Neuts % (Manual) 88.0 % (40.0-70.0) H 06/13/21 Unknown Band Neutrophils % 2.0 % 06/13/21 Unknown Lymphocytes % (Manual) 4.0 % (13.4-35.0) L 06/13/21 Unknown Reactive Lymphs % (Man) 0 % 06/13/21 Unknown Monocytes % (Manual) 6.0 % (0.0-7.3) 06/13/21 Unknown Eosinophils % (Manual) 0 % (0.0-4.3) 06/13/21 Unknown Basophils % (Manual) 0 % (0.0-1.8) 06/13/21 Unknown Metamyelocytes % 0 % 06/13/21 Unknown Myelocytes % 0 % 06/13/21 Unknown Promyelocytes % 0 % 06/13/21 Unknown Blast Cells % 0 % 06/13/21 Unknown Nucleated RBC % Not Reportable 06/13/21 Unknown Seg Neutrophils # 12.8 K/mm3 (1.8-7.7) H 06/21/21 04:42 Seg Neutrophils # Man 19.8 K/mm3 (1.8-7.7) H 06/13/21 Unknown Band Neutrophils # 0.5 K/mm3 06/13/21 Unknown Lymphocytes # (Manual) 0.9 K/mm3 (1.2-5.4) L 06/13/21 Unknown Abs React Lymphs (Man) 0.0 K/mm3 06/13/21 Unknown Monocytes # (Manual) 1.4 K/mm3 (0.0-0.8) H 06/13/21 Unknown Eosinophils # (Manual) 0.0 K/mm3 (0.0-0.4) 06/13/21 Unknown Basophils # (Manual) 0.0 K/mm3 (0.0-0.1) 06/13/21 Unknown Metamyelocytes # 0.0 K/mm3 06/13/21 Unknown Myelocytes # 0.0 K/mm3 06/13/21 Unknown Promyelocytes # 0.0 K/mm3 06/13/21 Unknown Blast Cells # 0.0 K/mm3 06/13/21 Unknown WBC Morphology Not Reportable 06/13/21 Unknown Hypersegmented Neuts Not Reportable 06/13/21 Unknown Hyposegmented Neuts Not Reportable 06/13/21 Unknown Hypogranular Neuts Not Reportable 06/13/21 Unknown Smudge Cells Not Reportable 06/13/21 Unknown Toxic Granulation 2+ 06/13/21 Unknown Toxic Vacuolation Not Reportable 06/13/21 Unknown Dohle Bodies Not Reportable 06/13/21 Unknown Pelger-Huet Anomaly Not Reportable 06/13/21 Unknown Dennis Rods Not Reportable 06/13/21 Unknown Platelet Estimate Consistent w auto 06/13/21 Unknown Clumped Platelets Not Reportable 06/13/21 Unknown Plt Clumps, EDTA Not Reportable 06/13/21 Unknown Large Platelets Not Reportable 06/13/21 Unknown Giant Platelets Not Reportable 06/13/21 Unknown Platelet Satelliting Not Reportable 06/13/21 Unknown Plt Morphology Comment Not Reportable 06/13/21 Unknown RBC Morphology Not Reportable 06/13/21 Unknown Dimorphic RBCs Not Reportable 06/13/21 Unknown Polychromasia Few 06/13/21 Unknown Hypochromasia 2+ 06/13/21 Unknown Poikilocytosis Not Reportable 06/13/21 Unknown Anisocytosis 1+ 06/13/21 Unknown Microcytosis Not Reportable 06/13/21 Unknown Macrocytosis Not Reportable 06/13/21 Unknown Spherocytes Not Reportable 06/13/21 Unknown Pappenheimer Bodies Not Reportable 06/13/21 Unknown Sickle Cells Not Reportable 06/13/21 Unknown Target Cells Not Reportable 06/13/21 Unknown Tear Drop Cells Not Reportable 06/13/21 Unknown Ovalocytes Not Reportable 06/13/21 Unknown Stomatocytes Few 06/12/21 01:45 Helmet Cells Not Reportable 06/13/21 Unknown [place] Bodies Not Reportable 06/13/21 Unknown [place] Rings Not Reportable 06/13/21 Unknown [place] Cells Not Reportable 06/13/21 Unknown Bite Cells Not Reportable 06/13/21 Unknown Crenated Cell Not Reportable 06/13/21 Unknown Elliptocytes Not Reportable 06/13/21 Unknown Acanthocytes (Spur) Not Reportable 06/13/21 Unknown Rouleaux Not Reportable 06/13/21 Unknown Hemoglobin C Crystals Not Reportable 06/13/21 Unknown Schistocytes Not Reportable 06/13/21 Unknown Malaria parasites Not Reportable 06/13/21 Unknown Edin Bodies Not Reportable 06/13/21 Unknown Hem Pathologist Commnt No 06/13/21 Unknown PT 18.3 Sec. (12.2-14.9) H 06/20/21 04:33 INR 1.37 (0.87-1.13) H 06/20/21 04:33 APTT 26.4 Sec. (24.2-36.6) 06/13/21 Unknown Fibrinogen 546 mg/dl (211-480) H 06/13/21 Unknown D-Dimer 1244.63 ng/mlDDU (0-234) H 06/13/21 Unknown ABG pH 7.426 pH Units (7.350-7.450) 06/21/21 04:20 POC ABG pCO2 25.6 mmHg (32.0-48.0) L 06/13/21 04:31 ABG pCO2 35.1 mm Hg 06/21/21 04:20 POC ABG pO2 138.8 mmHg (83-108) H 06/13/21 04:31 ABG pO2 98.5 mm Hg (80.0-90.0) H 06/21/21 04:20 POC ABG HCO3 21.4 06/13/21 04:31 ABG HCO3 22.6 mmol/L (20.0-26.0) 06/21/21 04:20 ABG O2 Saturation 97.7 % (95.0-99.0) 06/21/21 04:20 ABG O2 Content 9.9 (0.0-44) 06/21/21 04:20 POC ABG Base Excess -0.7 06/13/21 04:31 ABG Base Excess -1.6 mmol/L (-2.0-3.0) 06/21/21 04:20 ABG Hemoglobin 7.2 gm/dl (12.0-16.0) L 06/21/21 04:20 ABG Oxyhemoglobin 98.1 (94-98) H 06/13/21 04:31 ABG Carboxyhemoglobin 1.7 % (0.0-5.0) 06/21/21 04:20 ABG Methemoglobin 0.5 % (0.0-1.5) 06/21/21 04:20 Oxyhemoglobin 95.5 % (95.0-99.0) 06/21/21 04:20 Carboxyhemoglobin 0.8 (0.5-1.5) 06/13/21 04:31 FiO2 30 % 06/21/21 04:20 FiO2 % 40.0 06/13/21 04:31 Sodium 152 mmol/L (137-145) H 06/28/21 04:00 Potassium 3.0 mmol/L (3.6-5.0) L 06/28/21 04:00 Chloride 114.9 mmol/L (98-107) H 06/28/21 04:00 Carbon Dioxide 25 mmol/L (22-30) 06/28/21 04:00 Anion Gap 15 mmol/L 06/28/21 04:00 BUN 24 mg/dL (7-17) H 06/28/21 04:00 Creatinine 0.8 mg/dL (0.6-1.2) 06/28/21 04:00 Estimated GFR > 60 ml/min 06/28/21 04:00 BUN/Creatinine Ratio 30 % 06/28/21 04:00 Glucose 158 mg/dL (65-100) H 06/28/21 04:00 POC Glucose 164 mg/dL (70-105) H 06/28/21 11:47 Lactic Acid 5.30 mmol/L (0.7-2.0) H* 06/13/21 15:45 Calcium 8.1 mg/dL (8.4-10.2) L 06/28/21 04:00 Phosphorus 2.90 mg/dL (2.5-4.5) 06/27/21 04:15 Magnesium 2.20 mg/dL (1.7-2.3) 06/27/21 04:15 Total Bilirubin 0.40 mg/dL (0.1-1.2) 06/15/21 03:56 AST 64 units/L (5-40) H 06/15/21 03:56 ALT 106 units/L (7-56) H 06/15/21 03:56 Alkaline Phosphatase 55 units/L (35-129) 06/15/21 03:56 Troponin T < 0.010 ng/mL (0.00-0.029) 06/11/21 23:21 C-Reactive Protein 3.30 mg/dL (0.00-1.30) H 06/16/21 04:32 Total Protein 5.1 g/dL (6.3-8.2) L 06/15/21 03:56 Albumin 2.9 g/dL (3.9-5) L 06/15/21 03:56 Albumin/Globulin Ratio 1.3 % 06/15/21 03:56 Triglycerides 254 mg/dL (2-149) H 06/21/21 04:42 Urine Color Yellow (Yellow) 06/12/21 17:00 Urine Turbidity Clear (Clear) 06/12/21 17:00 Urine pH 5.0 (5.0-7.0) 06/12/21 17:00 Ur Specific [place] 1.035 (1.003-1.030) H 06/12/21 17:00 Urine Protein 30 mg/dl mg/dL (Negative) 06/12/21 17:00 Urine Glucose (UA) 50 mg/dL (Negative) 06/12/21 17:00 Urine Ketones Tr mg/dL (Negative) 06/12/21 17:00 Urine Blood Neg (Negative) 06/12/21 17:00 Urine Nitrite Neg (Negative) 06/12/21 17:00 Urine Bilirubin Neg (Negative) 06/12/21 17:00 Urine Urobilinogen < 2.0 mg/dL (<2.0) 06/12/21 17:00 Ur Leukocyte Esterase Neg (Negative) 06/12/21 17:00 Urine WBC (Auto) < 1.0 /HPF (0.0-6.0) 06/12/21 17:00 Urine RBC (Auto) < 1.0 /HPF (0.0-6.0) 06/12/21 17:00 Urine Creatinine 81.1 mg/dL (0.1-20.0) H 02/12/22 10:40 Urine Sodium 42 mmol/L 06/15/21 10:40 Coronavirus (PCR) Negative (Negative) 06/12/21 09:50 Blood Type O POSITIVE 06/24/21 06:40 Antibody Screen Negative 06/24/21 06:40 Crossmatch See Detail 06/24/21 06:40 Lujan/IV: Voiding Method Indwelling Catheter Active Medications - Current Medications Current Medications: Generic Name Dose Route Start Last Admin Trade Name Freq PRN Reason Stop Dose Admin Amlodipine Besylate 5 mg 06/23/21 10:00 06/28/21 09:46 Amlodipine 5 Mg Tab PO 5 mg QDAY JOLENE Administration Lipase/Protease/Amylase 1 each 06/19/21 19:20 Lipase 10,500/Protease 25,000/Amylase 43,750 (Units) Dr Melgar FEEDTUBE PRN PRN For Clogged Feeding Tube Atorvastatin Calcium 20 mg 06/22/21 22:00 06/27/21 21:22 Atorvastatin 20 Mg Tab PO 20 mg QHS JOLENE Administration Docusate Sodium 100 mg 06/20/21 10:00 06/28/21 09:47 Docusate Sodium 100 Mg/10 Ml Oral Liqd PO Not Given BID JOLENE Famotidine 20 mg 06/24/21 22:00 06/28/21 09:46 Famotidine 20 Mg Tab FEEDTUBE 20 mg BID JOLENE Administration Fentanyl 50 mcg 06/24/21 21:50 06/28/21 16:44 Fentanyl 100 Mcg/2 Ml Inj IV 50 mcg Q10MIN PRN Administration ANALGESIA Hydralazine HCl 100 mg 06/22/21 19:00 06/28/21 14:43 Hydralazine 100 Mg Tab FEEDTUBE 100 mg Q8HR JOLENE Administration Hydromorphone HCl 0.5 mg 06/11/21 20:42 06/28/21 14:42 Hydromorphone 1 Mg/1 Ml Inj IV 0.5 mg Q3H PRN Administration Pain , Severe (7-10) NORepinephrine/NS 8 MG-250 ML 8 mg in 250 mls @ 3.75 mls/hr 06/12/21 02:00 06/20/21 12:13 Norepinephrine/Ns 8 Mg-250 Ml (Double Conc) IV 0 mcg/min TITRATE JOLENE 0 mls/hr Titration Protocol 2 MCG/MIN Fentanyl Citrate 2,000 mcg in 100 mls @ 5.466 mls/hr 06/24/21 22:00 06/27/21 03:16 Fentanyl Drip Premix IV 0 mcg/kg/hr TITR JOLENE 0 mls/hr Titration Protocol 1 MCG/KG/HR Piperacillin Sod/Tazobactam Sod 4.5 gm in 100 mls @ 200 mls/hr 06/25/21 12:00 06/28/21 12:02 Zosyn/Ns 4.5gm/100ml IV 200 mls/hr Q6HR JOLENE Administration Protocol Dextrose 1,000 mls @ 42 mls/hr 06/28/21 08:00 06/28/21 09:45 D5w IV 06/29/21 07:49 42 mls/hr DIRECT JOLENE Administration Insulin Glargine 30 units 06/27/21 10:00 06/28/21 09:47 Insulin Glargine 100 Units/Ml SUB-Q 30 units BID JOLENE Administration Insulin Human Lispro 0 unit 06/12/21 12:00 06/28/21 12:02 Insulin Lispro 100 Unit/Ml SUB-Q 3 unit Q6HR JOLENE Administration Protocol Insulin Human Lispro 3 unit 06/26/21 12:00 06/28/21 12:03 Insulin Lispro 100 Unit/Ml SUB-Q 3 unit Q6HR JOLENE Administration Labetalol HCl 10 mg 06/21/21 18:00 06/27/21 00:53 Labetalol 20 Mg/4 Ml Inj IV 10 mg Q4HR PRN Administration Hypertension Metoclopramide HCl 10 mg 06/11/21 20:42 Metoclopramide 10 Mg/2 Ml Inj IV Q6H PRN Nausea And Vomiting Ondansetron HCl 4 mg 06/11/21 20:42 Ondansetron 4 Mg/2 Ml Inj IV Q3H PRN Nausea And Vomiting Prednisone 20 mg 06/28/21 10:00 06/28/21 09:46 Prednisone 5 Mg/5 Ml Oral Liquid FEEDTUBE 07/03/21 09:59 20 mg QDAY JOLENE Administration Senna 17.6 mg 06/20/21 10:00 06/28/21 09:47 Sennosides Oral Liqd 8.8 Mg/5 Ml Oral Liqd PO Not Given Q12HR JOLENE Simple Syrup 15 ml 06/19/21 19:20 Simple Syrup 15 Ml FEEDTUBE PRN PRN Hypoglycemia Simple Syrup 30 ml 06/19/21 19:20 Simple Syrup 15 Ml FEEDTUBE PRN PRN Hypoglycemia Sodium Bicarbonate 325 mg 06/19/21 19:20 Sodium Bicarbonate 325 Mg Tab FEEDTUBE PRN PRN For Clogged Feeding Tube Sodium Chloride 10 ml 06/11/21 22:00 06/28/21 09:47 Sodium Chloride 0.9% 10 Ml Flush Syringe IV 10 ml BID JOLENE Administration Sodium Chloride 10 ml 06/11/21 20:42 Sodium Chloride 0.9% 10 Ml Flush Syringe IV PRN PRN LINE FLUSH Nutrition/Malnutrition Assess - Dietary Evaluation Nutrition/Malnutrition Findings: Nutrition Notes Start: 06/16/21 12:10 Freq: Status: Active Protocol: Document 06/27/21 15:42 CANDIDO (Rec: 06/27/21 15:54 CANDIDO [id number]) Nutrition Notes Initial or Follow up Brief Note Current Diet TF-Vital AF 1.2 Quan @ 50 ml/hr (since D 06/21). Height 5 ft 8 in Weight 109.316 kg [place] Body Weight (kg) 63.63 BMI 36.6 Weight change and time frame No body weight change reported in 11 days. Weight Status Obese Subjective/Other Information RD consult for routine F/U on TF tolerance. TF continues as prescribed, with no significant events noted. Pt continues on Mechanical Ventilation through Tracheostomy, well tolerated, according to Progress notes. Pt still waiting for transfer to [place]. Percent of energy/protein needs met: Prescribed Vital AF 1.2 Quan @ 50 ml/hr provides for energy/ protein needs (1,440 Kcal/90 g ) during LOS; 105% Kcal and 71 % AA. #1 Nutrition Diagnosis Inadequate oral intake Diagnosis Progress(for reassessment Continues documentation) Is patient on ventilator? Yes Is Patient Ambulatory and/or Out of Bed No REE-([place]-confined to bed) [phone] Calculation Used for Recommendations 65-70% energy needs Additional Notes Energy needs: 1280-1379kcal/ day Pro needs 2g/kg IBW: 127g/day Fluid needs 1ml/kcal Nutrition Intervention Nutrition Support: Continue Vital AF 1.2 Quan @ 50 ml/hr. Flush: 200 ml water Q 4 hr. When hypernatermia resolved, provide 80 ml water flush Q 4 hr. Kcal 1,440 Protein (gm) 90 Carbohydrates (gm) 133 Fat (gm) 65 Fluid (mL) 973 Fiber (gm) 6 % RDI: 105% Kcal; 71% AA. Goal #1 Provide at least 75% of energy /protein needs through Enteral Feeding during LOS. Goal #2 Maintain body weight within +/ -3% of admission body weight during LOS. Follow-Up By: 07/01/21 Additional Comments Continue monitoring Mechanical Ventilation, Na/Flush, TF tolerance and BM. <MIKE CORTEZ - Last Filed: 06/28/21 20:34> Assessment and Plan Assessment and plan: I saw and evaluated the patient. I agree with the findings and the plan of care as documented in the Nurse Practitioner's~note, with the following corrections and additions. Hospitalist Physical - Constitutional Vitals: Temp Pulse Resp BP Pulse Ox 98.9 F 99 H 14 159/75 97 06/28/21 18:32 06/28/21 18:00 06/28/21 18:00 06/28/21 18:00 06/28/21 18:00 HEART Score - HEART Score Troponin: Troponin T < 0.010 ng/mL (0.00-0.029) 06/11/21 23:21 Results - Labs CBC & Chem 7: 06/28/21 04:00 06/28/21 04:00 Labs: Laboratory Last Values WBC 15.4 K/mm3 (4.5-11.0) H 06/28/21 04:00 RBC 3.05 M/mm3 (3.65-5.03) L 06/28/21 04:00 Hgb 8.2 gm/dl (10.1-14.3) L 06/28/21 04:00 Hct 25.0 % (30.3-42.9) L 06/28/21 04:00 MCV 82 fl (79-97) 06/28/21 04:00 MCH 27 pg (28-32) L 06/28/21 04:00 MCHC 33 % (30-34) 06/28/21 04:00 RDW 22.6 % (13.2-15.2) H 06/28/21 04:00 Plt Count 229 K/mm3 (140-440) 06/28/21 04:00 Lymph % (Auto) 3.5 % (13.4-35.0) L 06/21/21 04:42 [place] % (Auto) 11.7 % (0.0-7.3) H 06/21/21 04:42 Eos % (Auto) 0.0 % (0.0-4.3) 06/21/21 04:42 Baso % (Auto) 0.1 % (0.0-1.8) 06/21/21 04:42 Lymph # (Auto) 0.5 K/mm3 (1.2-5.4) L 06/21/21 04:42 [place] # (Auto) 1.8 K/mm3 (0.0-0.8) H 06/21/21 04:42 Eos # (Auto) 0.0 K/mm3 (0.0-0.4) 06/21/21 04:42 Baso # (Auto) 0.0 K/mm3 (0.0-0.1) 06/21/21 04:42 Add Manual Diff Complete 06/13/21 Unknown Total Counted 100 06/13/21 Unknown Seg Neutrophils % 84.7 % (40.0-70.0) H 06/21/21 04:42 Seg Neuts % (Manual) 88.0 % (40.0-70.0) H 06/13/21 Unknown Band Neutrophils % 2.0 % 06/13/21 Unknown Lymphocytes % (Manual) 4.0 % (13.4-35.0) L 06/13/21 Unknown Reactive Lymphs % (Man) 0 % 06/13/21 Unknown Monocytes % (Manual) 6.0 % (0.0-7.3) 06/13/21 Unknown Eosinophils % (Manual) 0 % (0.0-4.3) 06/13/21 Unknown Basophils % (Manual) 0 % (0.0-1.8) 06/13/21 Unknown Metamyelocytes % 0 % 06/13/21 Unknown Myelocytes % 0 % 06/13/21 Unknown Promyelocytes % 0 % 06/13/21 Unknown Blast Cells % 0 % 06/13/21 Unknown Nucleated RBC % Not Reportable 06/13/21 Unknown Seg Neutrophils # 12.8 K/mm3 (1.8-7.7) H 06/21/21 04:42 Seg Neutrophils # Man 19.8 K/mm3 (1.8-7.7) H 06/13/21 Unknown Band Neutrophils # 0.5 K/mm3 06/13/21 Unknown Lymphocytes # (Manual) 0.9 K/mm3 (1.2-5.4) L 06/13/21 Unknown Abs React Lymphs (Man) 0.0 K/mm3 06/13/21 Unknown Monocytes # (Manual) 1.4 K/mm3 (0.0-0.8) H 06/13/21 Unknown Eosinophils # (Manual) 0.0 K/mm3 (0.0-0.4) 06/13/21 Unknown Basophils # (Manual) 0.0 K/mm3 (0.0-0.1) 06/13/21 Unknown Metamyelocytes # 0.0 K/mm3 06/13/21 Unknown Myelocytes # 0.0 K/mm3 06/13/21 Unknown Promyelocytes # 0.0 K/mm3 06/13/21 Unknown Blast Cells # 0.0 K/mm3 06/13/21 Unknown WBC Morphology Not Reportable 06/13/21 Unknown Hypersegmented Neuts Not Reportable 06/13/21 Unknown Hyposegmented Neuts Not Reportable 06/13/21 Unknown Hypogranular Neuts Not Reportable 06/13/21 Unknown Smudge Cells Not Reportable 06/13/21 Unknown Toxic Granulation 2+ 06/13/21 Unknown Toxic Vacuolation Not Reportable 06/13/21 Unknown Dohle Bodies Not Reportable 06/13/21 Unknown Pelger-Huet Anomaly Not Reportable 06/13/21 Unknown Dennis Rods Not Reportable 06/13/21 Unknown Platelet Estimate Consistent w auto 06/13/21 Unknown Clumped Platelets Not Reportable 06/13/21 Unknown Plt Clumps, EDTA Not Reportable 06/13/21 Unknown Large Platelets Not Reportable 06/13/21 Unknown Giant Platelets Not Reportable 06/13/21 Unknown Platelet Satelliting Not Reportable 06/13/21 Unknown Plt Morphology Comment Not Reportable 06/13/21 Unknown RBC Morphology Not Reportable 06/13/21 Unknown Dimorphic RBCs Not Reportable 06/13/21 Unknown Polychromasia Few 06/13/21 Unknown Hypochromasia 2+ 06/13/21 Unknown Poikilocytosis Not Reportable 06/13/21 Unknown Anisocytosis 1+ 06/13/21 Unknown Microcytosis Not Reportable 06/13/21 Unknown Macrocytosis Not Reportable 06/13/21 Unknown Spherocytes Not Reportable 06/13/21 Unknown Pappenheimer Bodies Not Reportable 06/13/21 Unknown Sickle Cells Not Reportable 06/13/21 Unknown Target Cells Not Reportable 06/13/21 Unknown Tear Drop Cells Not Reportable 06/13/21 Unknown Ovalocytes Not Reportable 06/13/21 Unknown Stomatocytes Few 06/12/21 01:45 Helmet Cells Not Reportable 06/13/21 Unknown [place] Bodies Not Reportable 06/13/21 Unknown [place] Rings Not Reportable 06/13/21 Unknown Nelsy Cells Not Reportable 06/13/21 Unknown Bite Cells Not Reportable 06/13/21 Unknown Crenated Cell Not Reportable 06/13/21 Unknown Elliptocytes Not Reportable 06/13/21 Unknown Acanthocytes (Spur) Not Reportable 06/13/21 Unknown Rouleaux Not Reportable 06/13/21 Unknown Hemoglobin C Crystals Not Reportable 06/13/21 Unknown Schistocytes Not Reportable 06/13/21 Unknown Malaria parasites Not Reportable 06/13/21 Unknown Edin Bodies Not Reportable 06/13/21 Unknown Hem Pathologist Commnt No 06/13/21 Unknown PT 18.3 Sec. (12.2-14.9) H 06/20/21 04:33 INR 1.37 (0.87-1.13) H 06/20/21 04:33 APTT 26.4 Sec. (24.2-36.6) 06/13/21 Unknown Fibrinogen 546 mg/dl (211-480) H 06/13/21 Unknown D-Dimer 1244.63 ng/mlDDU (0-234) H 06/13/21 Unknown ABG pH 7.426 pH Units (7.350-7.450) 06/21/21 04:20 POC ABG pCO2 25.6 mmHg (32.0-48.0) L 06/13/21 04:31 ABG pCO2 35.1 mm Hg 06/21/21 04:20 POC ABG pO2 138.8 mmHg (83-108) H 06/13/21 04:31 ABG pO2 98.5 mm Hg (80.0-90.0) H 06/21/21 04:20 POC ABG HCO3 21.4 06/13/21 04:31 ABG HCO3 22.6 mmol/L (20.0-26.0) 06/21/21 04:20 ABG O2 Saturation 97.7 % (95.0-99.0) 06/21/21 04:20 ABG O2 Content 9.9 (0.0-44) 06/21/21 04:20 POC ABG Base Excess -0.7 06/13/21 04:31 ABG Base Excess -1.6 mmol/L (-2.0-3.0) 06/21/21 04:20 ABG Hemoglobin 7.2 gm/dl (12.0-16.0) L 06/21/21 04:20 ABG Oxyhemoglobin 98.1 (94-98) H 06/13/21 04:31 ABG Carboxyhemoglobin 1.7 % (0.0-5.0) 06/21/21 04:20 ABG Methemoglobin 0.5 % (0.0-1.5) 06/21/21 04:20 Oxyhemoglobin 95.5 % (95.0-99.0) 06/21/21 04:20 Carboxyhemoglobin 0.8 (0.5-1.5) 06/13/21 04:31 FiO2 30 % 06/21/21 04:20 FiO2 % 40.0 06/13/21 04:31 Sodium 152 mmol/L (137-145) H 06/28/21 04:00 Potassium 3.0 mmol/L (3.6-5.0) L 06/28/21 04:00 Chloride 114.9 mmol/L (98-107) H 06/28/21 04:00 Carbon Dioxide 25 mmol/L (22-30) 06/28/21 04:00 Anion Gap 15 mmol/L 06/28/21 04:00 BUN 24 mg/dL (7-17) H 06/28/21 04:00 Creatinine 0.8 mg/dL (0.6-1.2) 06/28/21 04:00 Estimated GFR > 60 ml/min 06/28/21 04:00 BUN/Creatinine Ratio 30 % 06/28/21 04:00 Glucose 158 mg/dL (65-100) H 06/28/21 04:00 POC Glucose 150 mg/dL (70-105) H 06/28/21 18:14 Lactic Acid 5.30 mmol/L (0.7-2.0) H* 06/13/21 15:45 Calcium 8.1 mg/dL (8.4-10.2) L 06/28/21 04:00 Phosphorus 2.90 mg/dL (2.5-4.5) 06/27/21 04:15 Magnesium 2.20 mg/dL (1.7-2.3) 06/27/21 04:15 Total Bilirubin 0.40 mg/dL (0.1-1.2) 06/15/21 03:56 AST 64 units/L (5-40) H 06/15/21 03:56 ALT 106 units/L (7-56) H 06/15/21 03:56 Alkaline Phosphatase 55 units/L (35-129) 06/15/21 03:56 Troponin T < 0.010 ng/mL (0.00-0.029) 06/11/21 23:21 C-Reactive Protein 3.30 mg/dL (0.00-1.30) H 06/16/21 04:32 Total Protein 5.1 g/dL (6.3-8.2) L 06/15/21 03:56 Albumin 2.9 g/dL (3.9-5) L 06/15/21 03:56 Albumin/Globulin Ratio 1.3 % 06/15/21 03:56 Triglycerides 254 mg/dL (2-149) H 06/21/21 04:42 Urine Color Yellow (Yellow) 06/12/21 17:00 Urine Turbidity Clear (Clear) 06/12/21 17:00 Urine pH 5.0 (5.0-7.0) 06/12/21 17:00 Ur Specific [place] 1.035 (1.003-1.030) H 06/12/21 17:00 Urine Protein 30 mg/dl mg/dL (Negative) 06/12/21 17:00 Urine Glucose (UA) 50 mg/dL (Negative) 06/12/21 17:00 Urine Ketones Tr mg/dL (Negative) 06/12/21 17:00 Urine Blood Neg (Negative) 06/12/21 17:00 Urine Nitrite Neg (Negative) 06/12/21 17:00 Urine Bilirubin Neg (Negative) 06/12/21 17:00 Urine Urobilinogen < 2.0 mg/dL (<2.0) 06/12/21 17:00 Ur Leukocyte Esterase Neg (Negative) 06/12/21 17:00 Urine WBC (Auto) < 1.0 /HPF (0.0-6.0) 06/12/21 17:00 Urine RBC (Auto) < 1.0 /HPF (0.0-6.0) 06/12/21 17:00 Urine Creatinine 81.1 mg/dL (0.1-20.0) H 06/15/21 10:40 Urine Sodium 42 mmol/L 06/15/21 10:40 Coronavirus (PCR) Negative (Negative) 06/12/21 09:50 Blood Type O POSITIVE 06/24/21 06:40 Antibody Screen Negative 06/24/21 06:40 Crossmatch See Detail 06/24/21 06:40 Lujan/IV: Voiding Method Indwelling Catheter Active Medications - Current Medications Current Medications: Generic Name Dose Route Start Last Admin Trade Name Freq PRN Reason Stop Dose Admin Amlodipine Besylate 5 mg 06/23/21 10:00 06/28/21 09:46 Amlodipine 5 Mg Tab PO 5 mg QDAY JOLENE Administration Lipase/Protease/Amylase 1 each 06/19/21 19:20 Lipase 10,500/Protease 25,000/Amylase 43,750 (Units) Dr Melgar FEEDTUBE PRN PRN For Clogged Feeding Tube Atorvastatin Calcium 20 mg 06/22/21 22:00 06/27/21 21:22 Atorvastatin 20 Mg Tab PO 20 mg QHS JOLENE Administration Docusate Sodium 100 mg 06/20/21 10:00 06/28/21 09:47 Docusate Sodium 100 Mg/10 Ml Oral Liqd PO Not Given BID JOLENE Famotidine 20 mg 06/24/21 22:00 06/28/21 09:46 Famotidine 20 Mg Tab FEEDTUBE 20 mg BID JOLENE Administration Fentanyl 50 mcg 06/24/21 21:50 06/28/21 16:44 Fentanyl 100 Mcg/2 Ml Inj IV 50 mcg Q10MIN PRN Administration ANALGESIA Hydralazine HCl 100 mg 06/22/21 19:00 06/28/21 14:43 Hydralazine 100 Mg Tab FEEDTUBE 100 mg Q8HR JOLENE Administration Hydromorphone HCl 0.5 mg 06/11/21 20:42 06/28/21 14:42 Hydromorphone 1 Mg/1 Ml Inj IV 0.5 mg Q3H PRN Administration Pain , Severe (7-10) NORepinephrine/NS 8 MG-250 ML 8 mg in 250 mls @ 3.75 mls/hr 06/12/21 02:00 06/20/21 12:13 Norepinephrine/Ns 8 Mg-250 Ml (Double Conc) IV 0 mcg/min TITRATE JOLENE 0 mls/hr Titration Protocol 2 MCG/MIN Fentanyl Citrate 2,000 mcg in 100 mls @ 5.466 mls/hr 06/24/21 22:00 06/27/21 03:16 Fentanyl Drip Premix IV 0 mcg/kg/hr TITR JOLENE 0 mls/hr Titration Protocol 1 MCG/KG/HR Piperacillin Sod/Tazobactam Sod 4.5 gm in 100 mls @ 200 mls/hr 06/25/21 12:00 06/28/21 17:28 Zosyn/Ns 4.5gm/100ml IV 200 mls/hr Q6HR JOLENE Administration Protocol Dextrose 1,000 mls @ 42 mls/hr 06/28/21 08:00 06/28/21 09:45 D5w IV 06/29/21 07:49 42 mls/hr DIRECT JOLENE Administration Insulin Glargine 30 units 06/27/21 10:00 06/28/21 09:47 Insulin Glargine 100 Units/Ml SUB-Q 30 units BID JOLENE Administration Insulin Human Lispro 0 unit 06/12/21 12:00 06/28/21 17:28 Insulin Lispro 100 Unit/Ml SUB-Q 3 unit Q6HR JOLENE Administration Protocol Insulin Human Lispro 3 unit 06/26/21 12:00 06/28/21 17:28 Insulin Lispro 100 Unit/Ml SUB-Q 3 unit Q6HR JOLENE Administration Labetalol HCl 10 mg 06/21/21 18:00 06/27/21 00:53 Labetalol 20 Mg/4 Ml Inj IV 10 mg Q4HR PRN Administration Hypertension Metoclopramide HCl 10 mg 06/11/21 20:42 Metoclopramide 10 Mg/2 Ml Inj IV Q6H PRN Nausea And Vomiting Ondansetron HCl 4 mg 06/11/21 20:42 Ondansetron 4 Mg/2 Ml Inj IV Q3H PRN Nausea And Vomiting Prednisone 20 mg 06/28/21 10:00 06/28/21 09:46 Prednisone 5 Mg/5 Ml Oral Liquid FEEDTUBE 07/03/21 09:59 20 mg QDAY JOLENE Administration Senna 17.6 mg 06/20/21 10:00 06/28/21 09:47 Sennosides Oral Liqd 8.8 Mg/5 Ml Oral Liqd PO Not Given Q12HR JOLENE Simple Syrup 15 ml 06/19/21 19:20 Simple Syrup 15 Ml FEEDTUBE PRN PRN Hypoglycemia Simple Syrup 30 ml 06/19/21 19:20 Simple Syrup 15 Ml FEEDTUBE PRN PRN Hypoglycemia Sodium Bicarbonate 325 mg 06/19/21 19:20 Sodium Bicarbonate 325 Mg Tab FEEDTUBE PRN PRN For Clogged Feeding Tube Sodium Chloride 10 ml 06/11/21 22:00 06/28/21 09:47 Sodium Chloride 0.9% 10 Ml Flush Syringe IV 10 ml BID JOLENE Administration Sodium Chloride 10 ml 06/11/21 20:42 Sodium Chloride 0.9% 10 Ml Flush Syringe IV PRN PRN LINE FLUSH Nutrition/Malnutrition Assess - Dietary Evaluation Nutrition/Malnutrition Findings: Nutrition Notes Start: 06/16/21 12:10 Freq: Status: Active Protocol: Document 06/27/21 15:42 CANDIDO (Rec: 06/27/21 15:54 CANDIDO [id number]) Nutrition Notes Initial or Follow up Brief Note Current Diet TF-Vital AF 1.2 Quan @ 50 ml/hr (since D 06/21). Height 5 ft 8 in Weight 109.316 kg [place] Body Weight (kg) 63.63 BMI 36.6 Weight change and time frame No body weight change reported in 11 days. Weight Status Obese Subjective/Other Information RD consult for routine F/U on TF tolerance. TF continues as prescribed, with no significant events noted. Pt continues on Mechanical Ventilation through Tracheostomy, well tolerated, according to Progress notes. Pt still waiting for transfer to [place]. Percent of energy/protein needs met: Prescribed Vital AF 1.2 Quan @ 50 ml/hr provides for energy/ protein needs (1,440 Kcal/90 g ) during LOS; 105% Kcal and 71 % AA. #1 Nutrition Diagnosis Inadequate oral intake Diagnosis Progress(for reassessment Continues documentation) Is patient on ventilator? Yes Is Patient Ambulatory and/or Out of Bed No REE-([place]-confined to bed) 0965.884 Calculation Used for Recommendations 65-70% energy needs Additional Notes Energy needs: 1280-1379kcal/ day Pro needs 2g/kg IBW: 127g/day Fluid needs 1ml/kcal Nutrition Intervention Nutrition Support: Continue Vital AF 1.2 Quan @ 50 ml/hr. Flush: 200 ml water Q 4 hr. When hypernatermia resolved, provide 80 ml water flush Q 4 hr. Kcal 1,440 Protein (gm) 90 Carbohydrates (gm) 133 Fat (gm) 65 Fluid (mL) 973 Fiber (gm) 6 % RDI: 105% Kcal; 71% AA. Goal #1 Provide at least 75% of energy /protein needs through Enteral Feeding during LOS. Goal #2 Maintain body weight within +/ -3% of admission body weight during LOS. Follow-Up By: 07/01/21 Additional Comments Continue monitoring Mechanical Ventilation, Na/Flush, TF tolerance and BM.
[2021-06-29] MEDS ORDERED: dilTIAZem 25 MG/5 ML INJ IV ONE (00:20)
[2021-06-29] MEDS: PIPERACIL/TAZOBACTA 4.5/NS 100 4.5 GM/100 ML VIAL IV SCH ×4 (00:41→17:40)
--- NOTE | 2021-06-29 04:47 | XRay Report ---
CHEST 1 VIEW INDICATION: Respiratory failure. COMPARISON: One day prior. FINDINGS: Support devices: Right PICC has been removed. Right chest tube and tracheostomy are unchanged. Heart: Stable. Lungs/Pleura: Bilateral pulmonary opacities are stable. No pneumothorax is seen. There is mild soft tissue gas in the right thorax. IMPRESSION: 1. No significant change. Signer Name: Brent Falcon MD Signed: 06/29/2021 4:43 AM Workstation Name: [id number]
[2021-06-29 05:02] LABS: Mean Corpuscular HGB Conc 32 % (30-34); Mean Corpuscular Volume 82 fl (79-97); Platelet Count 199 K/mm3 (140-440); Red Blood Count 3.04 M/mm3 (3.65-5.03)
[2021-06-29 05:09] LABS: Red Cell Distribution Width 22.3 % (13.2-15.2)
[2021-06-29 05:17] LABS: BUN/Creatinine Ratio 25; Blood Urea Nitrogen 20 mg/dL (7-17); Hemolysis Index 0
[2021-06-29] MEDS: INSULIN LISPRO 100 UNIT/ML SUB-Q SCH ×6 (06:20→17:41)
[2021-06-29] MEDS: predniSONE 5 MG/5 ML ORAL LIQUID FEEDTUBE SCH (09:29)
[2021-06-29] MEDS: fentaNYL 100 MCG/2 ML INJ IV PRN ×3 (09:30→19:24)
[2021-06-29] MEDS: FAMOTIDINE 20 MG TAB FEEDTUBE SCH ×2 (09:30→21:18)
[2021-06-29] MEDS: amLODIPine 5 MG TAB PO SCH (09:30)
[2021-06-29] MEDS: POTASSIUM CHLORIDE 20 MEQ PACKET PO SCH ×2 (09:30→12:28)
[2021-06-29] MEDS: INSULIN GLARGINE 100 UNITS/ML SUB-Q SCH ×2 (09:31→21:18)
[2021-06-29] MEDS: DOCUSATE SODIUM 100 MG/10 ML ORAL LIQD PO SCH ×2 (09:31→21:19)
[2021-06-29] MEDS: SENNOSIDES ORAL LIQD 8.8 MG/5 ML ORAL LIQD PO SCH ×2 (09:31→21:19)
[2021-06-29] MEDS ORDERED: FREE WATER PO SCH (10:00)
--- NOTE | 2021-06-29 10:14 | Procedure Note ---
Date of procedure: 06/29/21 Pre-op diagnosis: hx of pnthx Post-op diagnosis: same Procedure: removal of chest tube Anesthesia: none Surgeon: LYLA BERNSTEIN Estimated blood loss: none Pathology: none Condition: stable Disposition: ICU
--- NOTE | 2021-06-29 10:30 | Progress Note ---
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 06/28/21: monitor drainage in ICU for 24 more hours. Can likely come out tomorrow. Continue in ICU for now. Once chest tube out, no objection to t ransfer. 06/27/21: Will place chest tube to water seal. Instructed staff if any change in respiratory status, place back on suction and obtain CXR. Otherwise will leave off. Continue T-piece as tolerated. Rehab/correction/LTACH appropriate. STable for transfer if and when bed becomes available. 06/26/21: T-piece today. If off the vent, agree with surgery and removal of chest tube as subq emphysema is improving as well. PT has seen suggested LTACH, however if we are able to wean she may need correction/rehab. Prognosis continues to improve. 06/25/21: Continue PSV as tolerated. Hopeful T-piece in the next 24-48 hours. Will drop steroids down further on . Can switch to daily and even change to oral. PT/OT consult, and follow up recs. May need LTACH vs rehab vs both. Continue to follow. 06/24/21: Daily PSV trials. Maybe ready for T-piece sson. Continue to wean steroids to off. IMS changed to 40q12 which is fine. Continue chest tube until off vent. Still on list for [facility] but will discuss with CM about checking into LTACH as patient will need rehab. PT/OT consult. 06/21/21: Continue current level of sedation. Chest tube does not have air leak but there is clear evidence of a PTX on right. Stripped tube at bedside and will repeat CXR in the morning. Hold on weaning sedation for now and hold on PSV trials. May need second chest tube vs vats if PTX worsens or does not resolve. Patient still on list for [facility], hopeful they will have a bed soon. Drop steroids to 40q8 starting Thursday. Monitor renal function, likely will improve. Needs more free water. Prognosis still remains guarded. 06/20/21: Restart some sedation. At least pain and maybe diprovan. Would like to wake patient up at some point and attempt some PSV trials. Labs are off this am. Large bump in white count but no fever, also no diff drawn. Could be error vs steroid related but this is in just 24 hours. Will repeat tomorrow. If spikes a temp neves culture as well. Small bump in Cr but still in normal range. Will watch. Now that peg in place, tube feeds and free water flushes. Still on list for [facility]. Patient has been steroids greater than 7 days so will have to wean. Can drop to 60q8 starting tomorrow. Prognosis still remains guarded. 06/19/21: surgery to attempt trach and peg today. Still will ask to keep on transfer list for [facility] as her other issues still need to be addressed. If able to place peg, can stop clinimix, give free water and start tube feeds. Prognosis remains guarded. pH better with drop in tidal volume. 06/18/21: [facility] has agreed to accept but no ICU beds available at this time. Spoke with Dr. Vasquez yesterday and Dr. Patricia spoke with ENT there. Spoke with RT this am and patient did have a leak when cuff let down and her tidal volumes dropped to below 100. Patient remains on abx and steriods. Will consider lightening sedation tomorrow and seeing how patient does if cuff leak persists. Dropped tidal volumes to 450. Continue PPN for now. 06/17/21: spoke with surgery and they feel transfer is reasonable. I have reached out to [facility] and [facility]MS has spoken with someone from [facility]. Await to hear back from them. Continue supportive measures and adequate sedation for pain control. No PSV trials as of yet. Blood sugar control, increase lantus. Most likely secondary to steroids. Continue abx therapy. Guarded prognosis. 06/16/21: Renal function improved with fluids. IMS to give more fluids (LR) today which I agree with. FeNa is =0.7. Should be fluid responsive. Continue clinimix. Needs long acting insulin. Agree with lantus. Asked nursing to increase sedation now that we know that patient's mental status is stable. Picc today. Air leak test vs Neck CT on tomorrow. 06/15/21: Hopeful with worsening renal function ( likely from code on yesterday) that sedatives are just lingering from that. Still making good urine but output has fallen off. Will send urine sodium and urine cr to check Fena. Most likely this is prerenal. ordered renal ultrasound as well. Continue abx and steroids. Will start clinimix today. This should help with the free water piece. Will give another liter bolus of LR right now. Keep sedation off for now. Guarded prognosis. 06/14/21: Will discuss with surgery future plans. They have ordered steroids to help with inflammation and abx continue. All others appears stable and no acute evidence of bleeding at this time. Follow up surgery recs if any new ones. Guarded prognosis. 06/13/21: Patient to back to OR today. BLood transfusion. Will send DIC panel and may need to given cryo if over 6 units of PRBC's given. Patient will likely need trach and peg as we need to address nutrition. Chest tube placed, large bore now. Patient now with right sided effusion. Hemothorax???. Will continue to monitor output. Needs picc line as femoral should come out soon. Continue pressors. Continue sedation for pain control and comfort. Guarded prognosis. Surgery comfortable with neck and current situation so they have not request transfer. 1. Placed right femoral central line. pressors can run through this. 2. Repeat chemistry stat given bicarb of 8 and blood sugar of greater than 600. Ordering FSBS now. Earlier bicarb was 25. If accurate will need bicarb drip and vasopressin but not sure as pH on blood gas was normal done around the same time. 3. Coagulopathy is improving. INR down to 4.55 and PTT and pT improving. Will continue to give FFP. Ordered more vitamin K. H/H is stable but patient is oozing from neck and mouth. 4. Vasopressor for blood pressure. Need to keep map 65 and greater 5. Lujan is needed for accurate I/O 6. Surgery called by IMS about current CT situation. They state they will reassess in the am. I have reviewed the images myself. If I can position the patient safely without compromising the airway after adequate sedation, may consider placing chest tube now as INR is better and FFP is hanging. Patient is morbidly obese so shits could move the ET tube so if not safe, will wait until surgery comes in the morning. 7. Would not attempt to pass OG or NG tube given current situation in neck 8. Will discuss with surgery tomorrow but I feel this patient should be transferred to a tertiary care facility with ENT as we do not have that service here. CCT 31 minutes. Subjective Date of service: 06/28/21 Interval history: No acute events. Continues to tolerate T-piece. Objective Vital Signs - 12hr 06/28/21 06/28/21 06/28/21 22:31 23:01 23:31 Temperature Pulse Rate 105 H 117 H 93 H Pulse Rate [ From Monitor] Respiratory 17 25 H 22 Rate Blood Pressure 160/70 166/77 166/77 O2 Sat by Pulse 98 99 100 Oximetry O2 Sat by Pulse Oximetry [ Assessment] 06/28/21 06/29/21 06/29/21 23:53 00:00 00:31 Temperature Pulse Rate 88 96 H 113 H Pulse Rate [ 91 H From Monitor] Respiratory 24 26 H 27 H Rate Blood Pressure 166/77 153/73 121/67 O2 Sat by Pulse 95 100 97 Oximetry O2 Sat by Pulse 100 Oximetry [ Assessment] 06/29/21 06/29/21 06/29/21 00:37 01:01 01:31 Temperature Pulse Rate 114 H 104 H 113 H Pulse Rate [ From Monitor] Respiratory 22 17 Rate Blood Pressure 121/67 149/77 149/77 O2 Sat by Pulse 98 Oximetry O2 Sat by Pulse Oximetry [ Assessment] 06/29/21 06/29/21 06/29/21 02:00 02:31 03:00 Temperature Pulse Rate 93 H 90 90 Pulse Rate [ From Monitor] Respiratory 22 20 19 Rate Blood Pressure 131/68 131/68 134/68 O2 Sat by Pulse 95 99 Oximetry O2 Sat by Pulse Oximetry [ Assessment] 06/29/21 06/29/21 06/29/21 03:31 03:38 04:00 Temperature 97.6 F Pulse Rate 99 H 88 Pulse Rate [ 109 H From Monitor] Respiratory 19 22 Rate Blood Pressure 134/68 141/67 O2 Sat by Pulse 97 99 100 Oximetry O2 Sat by Pulse Oximetry [ Assessment] 06/29/21 06/29/21 06/29/21 04:31 05:00 05:31 Temperature Pulse Rate 105 H 91 H 104 H Pulse Rate [ From Monitor] Respiratory 30 H 29 H 30 H Rate Blood Pressure 141/67 146/75 146/75 O2 Sat by Pulse 98 100 100 Oximetry O2 Sat by Pulse Oximetry [ Assessment] 06/29/21 06/29/21 06/29/21 06:01 06:31 07:01 Temperature Pulse Rate 98 H 106 H 93 H Pulse Rate [ From Monitor] Respiratory 10 L 21 24 Rate Blood Pressure 153/84 153/84 152/68 O2 Sat by Pulse 100 100 100 Oximetry O2 Sat by Pulse Oximetry [ Assessment] 06/29/21 06/29/21 06/29/21 07:31 08:00 08:31 Temperature Pulse Rate 108 H 110 H 127 H Pulse Rate [ 96 H From Monitor] Respiratory 23 26 H 33 H Rate Blood Pressure 152/68 141/82 141/82 O2 Sat by Pulse 100 99 97 Oximetry O2 Sat by Pulse Oximetry [ Assessment] 06/29/21 06/29/21 06/29/21 09:01 09:22 09:30 Temperature 98 F Pulse Rate 81 91 H Pulse Rate [ From Monitor] Respiratory 23 Rate Blood Pressure 152/74 152/74 O2 Sat by Pulse 97 Oximetry O2 Sat by Pulse Oximetry [ Assessment] 06/29/21 06/29/21 09:31 10:00 Temperature Pulse Rate 89 110 H Pulse Rate [ From Monitor] Respiratory 19 22 Rate Blood Pressure 152/74 159/78 O2 Sat by Pulse 98 97 Oximetry O2 Sat by Pulse Oximetry [ Assessment] Constitutional: alert, other (on vent trach in place) Eyes: non-icteric ENT: oropharynx moist Neck: other (trach in place) Ascultation: Bilateral: clear Percussion: Bilateral: not dull Cardiovascular: regular rate and rhythm Gastrointestinal: normoactive bowel sounds, soft Integumentary: other (subq emphysema) Extremities: no edema, other (subq emphysema) Neurologic: normal mental status CBC and BMP: 06/29/21 04:00 06/29/21 04:00 ABG, PT/INR, D-dimer: ABG ABG pH 7.426 pH Units (7.350-7.450) 06/21/21 04:20 POC ABG pCO2 25.6 mmHg (32.0-48.0) L 06/13/21 04:31 ABG pCO2 35.1 mm Hg 06/21/21 04:20 POC ABG pO2 138.8 mmHg (83-108) H 06/13/21 04:31 ABG pO2 98.5 mm Hg (80.0-90.0) H 06/21/21 04:20 POC ABG HCO3 21.4 06/13/21 04:31 ABG O2 Saturation 97.7 % (95.0-99.0) 06/21/21 04:20 PT/INR, D-dimer PT 18.3 Sec. (12.2-14.9) H 06/20/21 04:33 INR 1.37 (0.87-1.13) H 06/20/21 04:33 D-Dimer 1244.63 ng/mlDDU (0-234) H 06/13/21 Unknown Abnormal lab findings: Abnormal Labs 06/11/21 06/11/21 06/11/21 15:23 15:23 19:20 WBC 12.0 H RBC Hgb Hct MCV 72 L MCH 21 L RDW 17.5 H Plt Count Lymph % (Auto) 12.9 L [place] % (Auto) 8.6 H Lymph # (Auto) [place] # (Auto) 1.0 H Seg Neutrophils % 77.4 H Seg Neuts % (Manual) Lymphocytes % (Manual) Monocytes % (Manual) Seg Neutrophils # 9.3 H Seg Neutrophils # Man Lymphocytes # (Manual) Monocytes # (Manual) PT INR APTT Fibrinogen D-Dimer ABG pH POC ABG pCO2 POC ABG pO2 ABG pO2 ABG HCO3 ABG O2 Saturation ABG Base Excess ABG Hemoglobin ABG Oxyhemoglobin Oxyhemoglobin Sodium Potassium Chloride Carbon Dioxide BUN Creatinine Glucose 144 H POC Glucose Lactic Acid Calcium Phosphorus Magnesium AST ALT Alkaline Phosphatase C-Reactive Protein Total Protein Albumin Triglycerides Ur Specific [place] Urine Creatinine Crossmatch See Detail 06/11/21 06/11/21 06/11/21 19:29 19:29 23:21 WBC 15.8 H RBC Hgb 9.4 L Hct MCV 72 L MCH 22 L RDW 17.4 H Plt Count Lymph % (Auto) 9.2 L [place] % (Auto) Lymph # (Auto) [place] # (Auto) Seg Neutrophils % 89.0 H Seg Neuts % (Manual) Lymphocytes % (Manual) Monocytes % (Manual) Seg Neutrophils # 14.0 H Seg Neutrophils # Man Lymphocytes # (Manual) Monocytes # (Manual) PT 72.9 H INR 8.18 H* APTT 71.7 H* Fibrinogen D-Dimer ABG pH POC ABG pCO2 POC ABG pO2 ABG pO2 ABG HCO3 ABG O2 Saturation ABG Base Excess ABG Hemoglobin ABG Oxyhemoglobin Oxyhemoglobin Sodium 149 H D Potassium Chloride 124.3 H Carbon Dioxide 8 L* D BUN Creatinine 0.3 L Glucose 628 H* POC Glucose Lactic Acid Calcium 2.4 L* D Phosphorus Magnesium AST ALT < 5 L Alkaline Phosphatase 19 L C-Reactive Protein Total Protein 1.6 L D Albumin 0.8 L Triglycerides Ur Specific [place] Urine Creatinine Crossmatch 06/11/21 06/11/21 06/11/21 23:21 23:22 23:42 WBC RBC Hgb Hct MCV MCH 27 L RDW 22.2 H Plt Count 131 L Lymph % (Auto) [place] % (Auto) Lymph # (Auto) [place] # (Auto) Seg Neutrophils % Seg Neuts % (Manual) Lymphocytes % (Manual) Monocytes % (Manual) Seg Neutrophils # Seg Neutrophils # Man Lymphocytes # (Manual) Monocytes # (Manual) PT 46.3 H INR 4.55 H APTT 54.8 H Fibrinogen D-Dimer ABG pH POC ABG pCO2 POC ABG pO2 325.9 H ABG pO2 ABG HCO3 ABG O2 Saturation ABG Base Excess ABG Hemoglobin 8.0 L ABG Oxyhemoglobin 99.0 H Oxyhemoglobin Sodium Potassium Chloride Carbon Dioxide BUN Creatinine Glucose POC Glucose Lactic Acid Calcium Phosphorus Magnesium AST ALT Alkaline Phosphatase C-Reactive Protein Total Protein Albumin Triglycerides Ur Specific [place] Urine Creatinine Crossmatch 06/12/21 06/12/21 06/12/21 01:45 01:45 01:45 WBC 21.6 H RBC 3.04 L Hgb 6.7 L D Hct 22.4 L D MCV 74 L MCH 22 L RDW 18.9 H Plt Count Lymph % (Auto) [place] % (Auto) Lymph # (Auto) [place] # (Auto) Seg Neutrophils % Seg Neuts % (Manual) 76.0 H Lymphocytes % (Manual) 2.0 L Monocytes % (Manual) 8.0 H Seg Neutrophils # Seg Neutrophils # Man 16.4 H Lymphocytes # (Manual) 0.4 L Monocytes # (Manual) 1.7 H PT 25.4 H INR 2.10 H APTT Fibrinogen D-Dimer ABG pH POC ABG pCO2 POC ABG pO2 ABG pO2 ABG HCO3 ABG O2 Saturation ABG Base Excess ABG Hemoglobin ABG Oxyhemoglobin Oxyhemoglobin Sodium Potassium 5.6 H D Chloride Carbon Dioxide 20 L D BUN Creatinine Glucose 368 H POC Glucose Lactic Acid Calcium 7.1 L D Phosphorus Magnesium AST ALT Alkaline Phosphatase C-Reactive Protein Total Protein 5.3 L D Albumin 3.1 L Triglycerides Ur Specific [place] Urine Creatinine Crossmatch 06/12/21 06/12/21 06/12/21 02:05 04:41 11:05 WBC 14.6 H RBC 3.52 L Hgb 8.5 L Hct 27.7 L MCV MCH 24 L RDW 20.9 H Plt Count Lymph % (Auto) [place] % (Auto) Lymph # (Auto) [place] # (Auto) Seg Neutrophils % Seg Neuts % (Manual) Lymphocytes % (Manual) Monocytes % (Manual) Seg Neutrophils # Seg Neutrophils # Man Lymphocytes # (Manual) Monocytes # (Manual) PT INR APTT Fibrinogen D-Dimer ABG pH POC ABG pCO2 POC ABG pO2 224.6 H ABG pO2 ABG HCO3 ABG O2 Saturation ABG Base Excess ABG Hemoglobin 7.3 L ABG Oxyhemoglobin 98.7 H Oxyhemoglobin Sodium Potassium Chloride Carbon Dioxide BUN Creatinine Glucose POC Glucose 308 H Lactic Acid Calcium Phosphorus Magnesium AST ALT Alkaline Phosphatase C-Reactive Protein Total Protein Albumin Triglycerides Ur Specific [place] Urine Creatinine Crossmatch 06/12/21 06/12/21 06/12/21 11:05 11:05 12:18 WBC RBC Hgb Hct MCV MCH RDW Plt Count Lymph % (Auto) [place] % (Auto) Lymph # (Auto) [place] # (Auto) Seg Neutrophils % Seg Neuts % (Manual) Lymphocytes % (Manual) Monocytes % (Manual) Seg Neutrophils # Seg Neutrophils # Man Lymphocytes # (Manual) Monocytes # (Manual) PT 16.8 H INR 1.23 H APTT Fibrinogen D-Dimer ABG pH POC ABG pCO2 POC ABG pO2 ABG pO2 ABG HCO3 ABG O2 Saturation ABG Base Excess ABG Hemoglobin ABG Oxyhemoglobin Oxyhemoglobin Sodium Potassium Chloride Carbon Dioxide BUN 24 H Creatinine Glucose 324 H POC Glucose 281 H Lactic Acid Calcium 7.5 L Phosphorus Magnesium AST 70 H ALT 57 H Alkaline Phosphatase C-Reactive Protein Total Protein 6.0 L Albumin 3.6 L Triglycerides Ur Specific [place] Urine Creatinine Crossmatch 06/12/21 06/12/21 06/12/21 17:00 17:00 17:00 WBC RBC Hgb 7.5 L Hct 24.0 L MCV MCH RDW Plt Count Lymph % (Auto) [place] % (Auto) Lymph # (Auto) [place] # (Auto) Seg Neutrophils % Seg Neuts % (Manual) Lymphocytes % (Manual) Monocytes % (Manual) Seg Neutrophils # Seg Neutrophils # Man Lymphocytes # (Manual) Monocytes # (Manual) PT 16.0 H INR 1.16 H APTT Fibrinogen D-Dimer ABG pH POC ABG pCO2 POC ABG pO2 ABG pO2 ABG HCO3 ABG O2 Saturation ABG Base Excess ABG Hemoglobin ABG Oxyhemoglobin Oxyhemoglobin Sodium Potassium Chloride Carbon Dioxide BUN Creatinine Glucose POC Glucose Lactic Acid Calcium Phosphorus Magnesium AST ALT Alkaline Phosphatase C-Reactive Protein Total Protein Albumin Triglycerides Ur Specific [place] 1.035 H Urine Creatinine Crossmatch 06/12/21 06/12/21 06/12/21 18:06 23:00 23:05 WBC RBC Hgb 7.6 L Hct 23.5 L MCV MCH RDW Plt Count Lymph % (Auto) [place] % (Auto) Lymph # (Auto) [place] # (Auto) Seg Neutrophils % Seg Neuts % (Manual) Lymphocytes % (Manual) Monocytes % (Manual) Seg Neutrophils # Seg Neutrophils # Man Lymphocytes # (Manual) Monocytes # (Manual) PT INR APTT Fibrinogen D-Dimer ABG pH POC ABG pCO2 POC ABG pO2 ABG pO2 ABG HCO3 ABG O2 Saturation ABG Base Excess ABG Hemoglobin ABG Oxyhemoglobin Oxyhemoglobin Sodium Potassium Chloride Carbon Dioxide BUN Creatinine Glucose POC Glucose 257 H 300 H Lactic Acid Calcium Phosphorus Magnesium AST ALT Alkaline Phosphatase C-Reactive Protein Total Protein Albumin Triglycerides Ur Specific [place] Urine Creatinine Crossmatch 06/13/21 06/13/21 06/13/21 04:31 05:19 07:30 WBC RBC Hgb 6.8 L Hct 21.7 L MCV MCH RDW Plt Count Lymph % (Auto) [place] % (Auto) Lymph # (Auto) [place] # (Auto) Seg Neutrophils % Seg Neuts % (Manual) Lymphocytes % (Manual) Monocytes % (Manual) Seg Neutrophils # Seg Neutrophils # Man Lymphocytes # (Manual) Monocytes # (Manual) PT INR APTT Fibrinogen D-Dimer ABG pH 7.541 H POC ABG pCO2 25.6 L POC ABG pO2 138.8 H ABG pO2 ABG HCO3 ABG O2 Saturation ABG Base Excess ABG Hemoglobin 7.3 L ABG Oxyhemoglobin 98.1 H Oxyhemoglobin Sodium Potassium Chloride Carbon Dioxide BUN Creatinine Glucose POC Glucose 286 H Lactic Acid Calcium Phosphorus Magnesium AST ALT Alkaline Phosphatase C-Reactive Protein Total Protein Albumin Triglycerides Ur Specific [place] Urine Creatinine Crossmatch 06/13/21 06/13/21 06/13/21 07:30 12:04 14:50 WBC RBC Hgb Hct MCV MCH RDW Plt Count Lymph % (Auto) [place] % (Auto) Lymph # (Auto) [place] # (Auto) Seg Neutrophils % Seg Neuts % (Manual) Lymphocytes % (Manual) Monocytes % (Manual) Seg Neutrophils # Seg Neutrophils # Man Lymphocytes # (Manual) Monocytes # (Manual) PT INR APTT Fibrinogen D-Dimer ABG pH 7.039 L* 7.182 L* POC ABG pCO2 POC ABG pO2 ABG pO2 63.1 L ABG HCO3 17.4 L ABG O2 Saturation 73.4 L ABG Base Excess -12.6 L -7.1 L ABG Hemoglobin 7.7 L 6.9 L ABG Oxyhemoglobin Oxyhemoglobin 71.8 L 93.5 L Sodium Potassium Chloride 108.9 H Carbon Dioxide BUN 28 H Creatinine Glucose 293 H POC Glucose Lactic Acid Calcium 7.2 L Phosphorus Magnesium AST 106 H ALT 92 H Alkaline Phosphatase C-Reactive Protein Total Protein 5.6 L Albumin 3.3 L Triglycerides Ur Specific [place] Urine Creatinine Crossmatch 06/13/21 06/13/21 06/13/21 14:54 15:45 17:34 WBC RBC Hgb Hct MCV MCH RDW Plt Count Lymph % (Auto) [place] % (Auto) Lymph # (Auto) [place] # (Auto) Seg Neutrophils % Seg Neuts % (Manual) Lymphocytes % (Manual) Monocytes % (Manual) Seg Neutrophils # Seg Neutrophils # Man Lymphocytes # (Manual) Monocytes # (Manual) PT INR APTT Fibrinogen D-Dimer ABG pH POC ABG pCO2 POC ABG pO2 ABG pO2 178.4 H ABG HCO3 ABG O2 Saturation 99.1 H ABG Base Excess ABG Hemoglobin 8.0 L ABG Oxyhemoglobin Oxyhemoglobin Sodium Potassium Chloride 107.3 H Carbon Dioxide 19 L BUN 33 H Creatinine 1.5 H Glucose 379 H POC Glucose Lactic Acid 5.30 H* Calcium 6.8 L Phosphorus Magnesium AST ALT Alkaline Phosphatase C-Reactive Protein Total Protein Albumin Triglycerides Ur Specific [place] Urine Creatinine Crossmatch 06/13/21 06/13/21 06/13/21 17:40 23:29 Unknown WBC 22.5 H RBC 3.16 L Hgb 8.0 L Hct 26.0 L MCV MCH 26 L RDW 21.4 H Plt Count Lymph % (Auto) [place] % (Auto) Lymph # (Auto) [place] # (Auto) Seg Neutrophils % Seg Neuts % (Manual) 88.0 H Lymphocytes % (Manual) 4.0 L Monocytes % (Manual) Seg Neutrophils # Seg Neutrophils # Man 19.8 H Lymphocytes # (Manual) 0.9 L Monocytes # (Manual) 1.4 H PT INR APTT Fibrinogen D-Dimer ABG pH POC ABG pCO2 POC ABG pO2 ABG pO2 ABG HCO3 ABG O2 Saturation ABG Base Excess ABG Hemoglobin ABG Oxyhemoglobin Oxyhemoglobin Sodium Potassium Chloride Carbon Dioxide BUN Creatinine Glucose POC Glucose 294 H 288 H Lactic Acid Calcium Phosphorus Magnesium AST ALT Alkaline Phosphatase C-Reactive Protein Total Protein Albumin Triglycerides Ur Specific [place] Urine Creatinine Crossmatch 06/13/21 06/14/21 06/14/21 Unknown 05:39 06:15 WBC RBC 2.93 L Hgb 7.2 L Hct 23.2 L MCV MCH 25 L RDW 21.2 H Plt Count Lymph % (Auto) [place] % (Auto) Lymph # (Auto) [place] # (Auto) Seg Neutrophils % Seg Neuts % (Manual) Lymphocytes % (Manual) Monocytes % (Manual) Seg Neutrophils # Seg Neutrophils # Man Lymphocytes # (Manual) Monocytes # (Manual) PT 17.6 H INR 1.31 H APTT Fibrinogen 546 H D-Dimer 1244.63 H ABG pH POC ABG pCO2 POC ABG pO2 ABG pO2 ABG HCO3 ABG O2 Saturation ABG Base Excess ABG Hemoglobin ABG Oxyhemoglobin Oxyhemoglobin Sodium Potassium Chloride Carbon Dioxide BUN Creatinine Glucose POC Glucose 246 H Lactic Acid Calcium Phosphorus Magnesium AST ALT Alkaline Phosphatase C-Reactive Protein Total Protein Albumin Triglycerides Ur Specific [place] Urine Creatinine Crossmatch 06/14/21 06/14/21 06/14/21 06:15 06:15 09:13 WBC RBC Hgb Hct MCV MCH RDW Plt Count Lymph % (Auto) [place] % (Auto) Lymph # (Auto) [place] # (Auto) Seg Neutrophils % Seg Neuts % (Manual) Lymphocytes % (Manual) Monocytes % (Manual) Seg Neutrophils # Seg Neutrophils # Man Lymphocytes # (Manual) Monocytes # (Manual) PT INR APTT Fibrinogen D-Dimer ABG pH POC ABG pCO2 POC ABG pO2 ABG pO2 183.0 H ABG HCO3 ABG O2 Saturation 99.2 H ABG Base Excess ABG Hemoglobin 6.6 L ABG Oxyhemoglobin Oxyhemoglobin Sodium 147 H Potassium Chloride 112.5 H Carbon Dioxide 21 L BUN 36 H Creatinine 1.4 H Glucose 281 H POC Glucose Lactic Acid Calcium 6.9 L Phosphorus Magnesium AST ALT Alkaline Phosphatase C-Reactive Protein Total Protein Albumin Triglycerides 189 H Ur Specific [place] Urine Creatinine Crossmatch 06/14/21 06/14/21 06/14/21 10:45 12:16 13:30 WBC RBC Hgb 7.1 L Hct 22.3 L MCV MCH RDW Plt Count Lymph % (Auto) [place] % (Auto) Lymph # (Auto) [place] # (Auto) Seg Neutrophils % Seg Neuts % (Manual) Lymphocytes % (Manual) Monocytes % (Manual) Seg Neutrophils # Seg Neutrophils # Man Lymphocytes # (Manual) Monocytes # (Manual) PT INR APTT Fibrinogen D-Dimer ABG pH 7.205 L POC ABG pCO2 POC ABG pO2 ABG pO2 261.3 H ABG HCO3 ABG O2 Saturation 99.4 H ABG Base Excess -7.2 L ABG Hemoglobin 7.6 L ABG Oxyhemoglobin Oxyhemoglobin Sodium Potassium Chloride Carbon Dioxide BUN Creatinine Glucose POC Glucose 174 H Lactic Acid Calcium Phosphorus Magnesium AST ALT Alkaline Phosphatase C-Reactive Protein Total Protein Albumin Triglycerides Ur Specific [place] Urine Creatinine Crossmatch 06/14/21 06/14/21 06/15/21 17:40 18:43 00:06 WBC RBC Hgb Hct MCV MCH RDW Plt Count Lymph % (Auto) [place] % (Auto) Lymph # (Auto) [place] # (Auto) Seg Neutrophils % Seg Neuts % (Manual) Lymphocytes % (Manual) Monocytes % (Manual) Seg Neutrophils # Seg Neutrophils # Man Lymphocytes # (Manual) Monocytes # (Manual) PT INR APTT Fibrinogen D-Dimer ABG pH 7.292 L POC ABG pCO2 POC ABG pO2 ABG pO2 78.8 L ABG HCO3 ABG O2 Saturation ABG Base Excess -5.0 L ABG Hemoglobin 9.1 L ABG Oxyhemoglobin Oxyhemoglobin 93.7 L Sodium Potassium Chloride Carbon Dioxide BUN Creatinine Glucose POC Glucose 182 H 144 H Lactic Acid Calcium Phosphorus Magnesium AST ALT Alkaline Phosphatase C-Reactive Protein Total Protein Albumin Triglycerides Ur Specific [place] Urine Creatinine Crossmatch 06/15/21 06/15/21 06/15/21 03:55 03:56 10:40 WBC RBC Hgb 8.4 L Hct 25.8 L MCV MCH RDW Plt Count Lymph % (Auto) [place] % (Auto) Lymph # (Auto) [place] # (Auto) Seg Neutrophils % Seg Neuts % (Manual) Lymphocytes % (Manual) Monocytes % (Manual) Seg Neutrophils # Seg Neutrophils # Man Lymphocytes # (Manual) Monocytes # (Manual) PT INR APTT Fibrinogen D-Dimer ABG pH POC ABG pCO2 POC ABG pO2 ABG pO2 ABG HCO3 ABG O2 Saturation ABG Base Excess ABG Hemoglobin ABG Oxyhemoglobin Oxyhemoglobin Sodium 147 H Potassium Chloride 112.2 H Carbon Dioxide 21 L BUN 47 H Creatinine 1.9 H Glucose 272 H POC Glucose Lactic Acid Calcium 7.3 L Phosphorus Magnesium AST 64 H ALT 106 H Alkaline Phosphatase C-Reactive Protein Total Protein 5.1 L Albumin 2.9 L Triglycerides Ur Specific [place] Urine Creatinine 81.1 H Crossmatch 06/15/21 06/15/21 06/15/21 11:46 17:16 23:17 WBC RBC Hgb Hct MCV MCH RDW Plt Count Lymph % (Auto) [place] % (Auto) Lymph # (Auto) [place] # (Auto) Seg Neutrophils % Seg Neuts % (Manual) Lymphocytes % (Manual) Monocytes % (Manual) Seg Neutrophils # Seg Neutrophils # Man Lymphocytes # (Manual) Monocytes # (Manual) PT INR APTT Fibrinogen D-Dimer ABG pH POC ABG pCO2 POC ABG pO2 ABG pO2 ABG HCO3 ABG O2 Saturation ABG Base Excess ABG Hemoglobin ABG Oxyhemoglobin Oxyhemoglobin Sodium Potassium Chloride Carbon Dioxide BUN Creatinine Glucose POC Glucose 271 H 268 H 264 H Lactic Acid Calcium Phosphorus Magnesium AST ALT Alkaline Phosphatase C-Reactive Protein Total Protein Albumin Triglycerides Ur Specific [place]rine Creatinine Crossmatch 06/15/21 06/15/21 06/16/21 Unknown Unknown 04:32 WBC RBC 3.21 L 3.16 L Hgb 8.4 L 8.2 L Hct 26.1 L 25.4 L MCV MCH 26 L 26 L RDW 21.3 H 21.2 H Plt Count 105 L 118 L Lymph % (Auto) [place] % (Auto) Lymph # (Auto) [place] # (Auto) Seg Neutrophils % Seg Neuts % (Manual) Lymphocytes % (Manual) Monocytes % (Manual) Seg Neutrophils # Seg Neutrophils # Man Lymphocytes # (Manual) Monocytes # (Manual) PT INR APTT Fibrinogen D-Dimer ABG pH 7.465 H POC ABG pCO2 POC ABG pO2 ABG pO2 114.1 H ABG HCO3 ABG O2 Saturation ABG Base Excess ABG Hemoglobin 8.4 L ABG Oxyhemoglobin Oxyhemoglobin Sodium Potassium Chloride Carbon Dioxide BUN Creatinine Glucose POC Glucose Lactic Acid Calcium Phosphorus Magnesium AST ALT Alkaline Phosphatase C-Reactive Protein Total Protein Albumin Triglycerides Ur Specific [place]rine Creatinine Crossmatch 06/16/21 06/16/21 06/16/21 04:32 04:32 05:08 WBC RBC Hgb Hct MCV MCH RDW Plt Count Lymph % (Auto) [place] % (Auto) Lymph # (Auto) [place] # (Auto) Seg Neutrophils % Seg Neuts % (Manual) Lymphocytes % (Manual) Monocytes % (Manual) Seg Neutrophils # Seg Neutrophils # Man Lymphocytes # (Manual) Monocytes # (Manual) PT INR APTT Fibrinogen D-Dimer ABG pH POC ABG pCO2 POC ABG pO2 ABG pO2 ABG HCO3 ABG O2 Saturation ABG Base Excess ABG Hemoglobin ABG Oxyhemoglobin Oxyhemoglobin Sodium 148 H Potassium 3.3 L Chloride 115.1 H Carbon Dioxide 21 L BUN 54 H Creatinine 1.6 H Glucose 367 H POC Glucose 356 H Lactic Acid Calcium 7.4 L Phosphorus Magnesium AST ALT Alkaline Phosphatase C-Reactive Protein 3.30 H Total Protein Albumin Triglycerides Ur Specific [place]rine Creatinine Crossmatch 06/16/21 06/16/21 06/16/21 05:30 11:46 17:03 WBC RBC Hgb Hct MCV MCH RDW Plt Count Lymph % (Auto) [place] % (Auto) Lymph # (Auto) [place] # (Auto) Seg Neutrophils % Seg Neuts % (Manual) Lymphocytes % (Manual) Monocytes % (Manual) Seg Neutrophils # Seg Neutrophils # Man Lymphocytes # (Manual) Monocytes # (Manual) PT INR APTT Fibrinogen D-Dimer ABG pH 7.475 H POC ABG pCO2 POC ABG pO2 ABG pO2 171.8 H ABG HCO3 ABG O2 Saturation 99.1 H ABG Base Excess ABG Hemoglobin 11.7 L ABG Oxyhemoglobin Oxyhemoglobin Sodium Potassium Chloride Carbon Dioxide BUN Creatinine Glucose POC Glucose 309 H 345 H Lactic Acid Calcium Phosphorus Magnesium AST ALT Alkaline Phosphatase C-Reactive Protein Total Protein Albumin Triglycerides Ur Specific [place]rine Creatinine Crossmatch 06/16/21 06/16/21 06/17/21 20:18 23:22 04:50 WBC RBC Hgb Hct MCV MCH RDW Plt Count Lymph % (Auto) [place] % (Auto) Lymph # (Auto) [place] # (Auto) Seg Neutrophils % Seg Neuts % (Manual) Lymphocytes % (Manual) Monocytes % (Manual) Seg Neutrophils # Seg Neutrophils # Man Lymphocytes # (Manual) Monocytes # (Manual) PT INR APTT Fibrinogen D-Dimer ABG pH 7.479 H POC ABG pCO2 POC ABG pO2 ABG pO2 143.1 H ABG HCO3 ABG O2 Saturation ABG Base Excess ABG Hemoglobin 10.0 L ABG Oxyhemoglobin Oxyhemoglobin Sodium Potassium Chloride Carbon Dioxide BUN Creatinine Glucose POC Glucose 325 H 315 H Lactic Acid Calcium Phosphorus Magnesium AST ALT Alkaline Phosphatase C-Reactive Protein Total Protein Albumin Triglycerides Ur Specific [place]rine Creatinine Crossmatch 06/17/21 06/17/21 06/17/21 05:18 05:30 05:30 WBC RBC 3.17 L Hgb 8.2 L Hct 25.5 L MCV MCH 26 L RDW 21.2 H Plt Count 128 L Lymph % (Auto) [place] % (Auto) Lymph # (Auto) [place] # (Auto) Seg Neutrophils % Seg Neuts % (Manual) Lymphocytes % (Manual) Monocytes % (Manual) Seg Neutrophils # Seg Neutrophils # Man Lymphocytes # (Manual) Monocytes # (Manual) PT INR APTT Fibrinogen D-Dimer ABG pH POC ABG pCO2 POC ABG pO2 ABG pO2 ABG HCO3 ABG O2 Saturation ABG Base Excess ABG Hemoglobin ABG Oxyhemoglobin Oxyhemoglobin Sodium 148 H Potassium Chloride 113.7 H Carbon Dioxide 20 L BUN 57 H Creatinine 1.4 H Glucose 351 H POC Glucose 324 H Lactic Acid Calcium 8.0 L Phosphorus 2.30 L Magnesium AST ALT Alkaline Phosphatase C-Reactive Protein Total Protein Albumin Triglycerides Ur Specific [place]rine Creatinine Crossmatch 06/17/21 06/17/21 06/17/21 11:49 17:43 21:42 WBC RBC Hgb Hct MCV MCH RDW Plt Count Lymph % (Auto) [place] % (Auto) Lymph # (Auto) [place] # (Auto) Seg Neutrophils % Seg Neuts % (Manual) Lymphocytes % (Manual) Monocytes % (Manual) Seg Neutrophils # Seg Neutrophils # Man Lymphocytes # (Manual) Monocytes # (Manual) PT INR APTT Fibrinogen D-Dimer ABG pH POC ABG pCO2 POC ABG pO2 ABG pO2 ABG HCO3 ABG O2 Saturation ABG Base Excess ABG Hemoglobin ABG Oxyhemoglobin Oxyhemoglobin Sodium Potassium Chloride Carbon Dioxide BUN Creatinine Glucose POC Glucose 305 H 307 H 286 H Lactic Acid Calcium Phosphorus Magnesium AST ALT Alkaline Phosphatase C-Reactive Protein Total Protein Albumin Triglycerides Ur Specific [place]rine Creatinine Crossmatch 06/17/21 06/18/21 06/18/21 23:59 04:20 04:37 WBC RBC 3.53 L Hgb 9.1 L Hct 28.7 L MCV MCH 26 L RDW 21.3 H Plt Count Lymph % (Auto) [place] % (Auto) Lymph # (Auto) [place] # (Auto) Seg Neutrophils % Seg Neuts % (Manual) Lymphocytes % (Manual) Monocytes % (Manual) Seg Neutrophils # Seg Neutrophils # Man Lymphocytes # (Manual) Monocytes # (Manual) PT INR APTT Fibrinogen D-Dimer ABG pH 7.495 H POC ABG pCO2 POC ABG pO2 ABG pO2 108.3 H ABG HCO3 ABG O2 Saturation ABG Base Excess -2.1 L ABG Hemoglobin 10.0 L ABG Oxyhemoglobin Oxyhemoglobin Sodium Potassium Chloride Carbon Dioxide BUN Creatinine Glucose POC Glucose 264 H Lactic Acid Calcium Phosphorus Magnesium AST ALT Alkaline Phosphatase C-Reactive Protein Total Protein Albumin Triglycerides Ur Specific [place]rine Creatinine Crossmatch 06/18/21 06/18/21 06/18/21 04:37 05:32 11:21 WBC RBC Hgb Hct MCV MCH RDW Plt Count Lymph % (Auto) [place] % (Auto) Lymph # (Auto) [place] # (Auto) Seg Neutrophils % Seg Neuts % (Manual) Lymphocytes % (Manual) Monocytes % (Manual) Seg Neutrophils # Seg Neutrophils # Man Lymphocytes # (Manual) Monocytes # (Manual) PT INR APTT Fibrinogen D-Dimer ABG pH POC ABG pCO2 POC ABG pO2 ABG pO2 ABG HCO3 ABG O2 Saturation ABG Base Excess ABG Hemoglobin ABG Oxyhemoglobin Oxyhemoglobin Sodium 148 H Potassium Chloride 114.7 H Carbon Dioxide BUN 59 H Creatinine 1.3 H Glucose 329 H POC Glucose 293 H 291 H Lactic Acid Calcium 8.1 L Phosphorus Magnesium AST ALT Alkaline Phosphatase C-Reactive Protein Total Protein Albumin Triglycerides Ur Specific [place]rine Creatinine Crossmatch 06/18/21 06/18/2122 18:21 21:46 00:15 WBC RBC Hgb Hct MCV MCH RDW Plt Count Lymph % (Auto) [place] % (Auto) Lymph # (Auto) [place] # (Auto) Seg Neutrophils % Seg Neuts % (Manual) Lymphocytes % (Manual) Monocytes % (Manual) Seg Neutrophils # Seg Neutrophils # Man Lymphocytes # (Manual) Monocytes # (Manual) PT INR APTT Fibrinogen D-Dimer ABG pH POC ABG pCO2 POC ABG pO2 ABG pO2 ABG HCO3 ABG O2 Saturation ABG Base Excess ABG Hemoglobin ABG Oxyhemoglobin Oxyhemoglobin Sodium Potassium Chloride Carbon Dioxide BUN Creatinine Glucose POC Glucose 239 H 259 H 310 H Lactic Acid Calcium Phosphorus Magnesium AST ALT Alkaline Phosphatase C-Reactive Protein Total Protein Albumin Triglycerides Ur Specific [place]rine Creatinine Crossmatch 06/19/21 06/19/21 06/19/21 04:00 04:00 04:50 WBC RBC 3.64 L Hgb 9.1 L Hct 29.1 L MCV MCH 25 L RDW 21.5 H Plt Count Lymph % (Auto) [place] % (Auto) Lymph # (Auto) [place] # (Auto) Seg Neutrophils % Seg Neuts % (Manual) Lymphocytes % (Manual) Monocytes % (Manual) Seg Neutrophils # Seg Neutrophils # Man Lymphocytes # (Manual) Monocytes # (Manual) PT INR APTT Fibrinogen D-Dimer ABG pH POC ABG pCO2 POC ABG pO2 ABG pO2 78.9 L ABG HCO3 ABG O2 Saturation ABG Base Excess -3.2 L ABG Hemoglobin 7.6 L ABG Oxyhemoglobin Oxyhemoglobin Sodium 148 H Potassium Chloride 114.9 H Carbon Dioxide 19 L BUN 59 H Creatinine Glucose 345 H POC Glucose Lactic Acid Calcium 8.1 L Phosphorus 4.60 H D Magnesium 2.40 H AST ALT Alkaline Phosphatase C-Reactive Protein Total Protein Albumin Triglycerides Ur Specific [place]rine Creatinine Crossmatch 06/19/21 06/19/21 06/19/21 06:28 11:11 17:20 WBC RBC Hgb Hct MCV MCH RDW Plt Count Lymph % (Auto) [place] % (Auto) Lymph # (Auto) [place] # (Auto) Seg Neutrophils % Seg Neuts % (Manual) Lymphocytes % (Manual) Monocytes % (Manual) Seg Neutrophils # Seg Neutrophils # Man Lymphocytes # (Manual) Monocytes # (Manual) PT 29.7 H INR 2.57 H APTT Fibrinogen D-Dimer ABG pH POC ABG pCO2 POC ABG pO2 ABG pO2 ABG HCO3 ABG O2 Saturation ABG Base Excess ABG Hemoglobin ABG Oxyhemoglobin Oxyhemoglobin Sodium Potassium Chloride Carbon Dioxide BUN Creatinine Glucose POC Glucose 279 H 275 H Lactic Acid Calcium Phosphorus Magnesium AST ALT Alkaline Phosphatase C-Reactive Protein Total Protein Albumin Triglycerides Ur Specific [place]rine Creatinine Crossmatch 06/19/21 06/19/21 06/19/21 18:30 19:20 23:27 WBC RBC Hgb 8.0 L Hct 25.0 L MCV MCH RDW Plt Count Lymph % (Auto) [place] % (Auto) Lymph # (Auto) [place] # (Auto) Seg Neutrophils % Seg Neuts % (Manual) Lymphocytes % (Manual) Monocytes % (Manual) Seg Neutrophils # Seg Neutrophils # Man Lymphocytes # (Manual) Monocytes # (Manual) PT INR APTT Fibrinogen D-Dimer ABG pH POC ABG pCO2 POC ABG pO2 ABG pO2 ABG HCO3 ABG O2 Saturation ABG Base Excess ABG Hemoglobin ABG Oxyhemoglobin Oxyhemoglobin Sodium Potassium Chloride Carbon Dioxide BUN Creatinine Glucose POC Glucose 279 H 290 H Lactic Acid Calcium Phosphorus Magnesium AST ALT Alkaline Phosphatase C-Reactive Protein Total Protein Albumin Triglycerides Ur Specific [place]rine Creatinine Crossmatch 06/20/21 06/20/21 06/20/21 00:00 04:33 04:33 WBC 22.3 H RBC 3.31 L Hgb 7.4 L 8.5 L Hct 22.5 L 26.5 L MCV MCH 26 L RDW 21.5 H Plt Count Lymph % (Auto) [place] % (Auto) Lymph # (Auto) [place] # (Auto) Seg Neutrophils % Seg Neuts % (Manual) Lymphocytes % (Manual) Monocytes % (Manual) Seg Neutrophils # Seg Neutrophils # Man Lymphocytes # (Manual) Monocytes # (Manual) PT INR APTT Fibrinogen D-Dimer ABG pH POC ABG pCO2 POC ABG pO2 ABG pO2 ABG HCO3 ABG O2 Saturation ABG Base Excess ABG Hemoglobin ABG Oxyhemoglobin Oxyhemoglobin Sodium 148 H Potassium Chloride 114.2 H Carbon Dioxide BUN 70 H Creatinine 1.4 H Glucose 313 H POC Glucose Lactic Acid Calcium 8.2 L Phosphorus Magnesium 2.50 H AST ALT Alkaline Phosphatase C-Reactive Protein Total Protein Albumin Triglycerides Ur Specific [place]rine Creatinine Crossmatch 06/20/21 06/20/21 06/20/21 04:33 05:27 11:21 WBC RBC Hgb Hct MCV MCH RDW Plt Count Lymph % (Auto) [place] % (Auto) Lymph # (Auto) [place] # (Auto) Seg Neutrophils % Seg Neuts % (Manual) Lymphocytes % (Manual) Monocytes % (Manual) Seg Neutrophils # Seg Neutrophils # Man Lymphocytes # (Manual) Monocytes # (Manual) PT 18.3 H INR 1.37 H APTT Fibrinogen D-Dimer ABG pH POC ABG pCO2 POC ABG pO2 ABG pO2 ABG HCO3 ABG O2 Saturation ABG Base Excess ABG Hemoglobin ABG Oxyhemoglobin Oxyhemoglobin Sodium Potassium Chloride Carbon Dioxide BUN Creatinine Glucose POC Glucose 288 H 306 H Lactic Acid Calcium Phosphorus Magnesium AST ALT Alkaline Phosphatase C-Reactive Protein Total Protein Albumin Triglycerides Ur Specific [place]rine Creatinine Crossmatch 06/20/21 06/20/21 06/20/21 12:23 15:56 18:20 WBC RBC Hgb 8.2 L 8.1 L Hct 25.9 L 25.5 L MCV MCH RDW Plt Count Lymph % (Auto) [place] % (Auto) Lymph # (Auto) [place] # (Auto) Seg Neutrophils % Seg Neuts % (Manual) Lymphocytes % (Manual) Monocytes % (Manual) Seg Neutrophils # Seg Neutrophils # Man Lymphocytes # (Manual) Monocytes # (Manual) PT INR APTT Fibrinogen D-Dimer ABG pH POC ABG pCO2 POC ABG pO2 ABG pO2 ABG HCO3 ABG O2 Saturation ABG Base Excess ABG Hemoglobin ABG Oxyhemoglobin Oxyhemoglobin Sodium Potassium Chloride Carbon Dioxide BUN Creatinine Glucose POC Glucose 293 H Lactic Acid Calcium Phosphorus Magnesium AST ALT Alkaline Phosphatase C-Reactive Protein Total Protein Albumin Triglycerides Ur Specific [place]rine Creatinine Crossmatch 06/20/21 06/21/21 06/21/21 23:11 04:20 04:42 WBC 15.1 H RBC 2.84 L Hgb 7.3 L Hct 23.1 L MCV MCH 26 L RDW 21.5 H Plt Count Lymph % (Auto) 3.5 L [place] % (Auto) 11.7 H Lymph # (Auto) 0.5 L [place] # (Auto) 1.8 H Seg Neutrophils % 84.7 H Seg Neuts % (Manual) Lymphocytes % (Manual) Monocytes % (Manual) Seg Neutrophils # 12.8 H Seg Neutrophils # Man Lymphocytes # (Manual) Monocytes # (Manual) PT INR APTT Fibrinogen D-Dimer ABG pH POC ABG pCO2 POC ABG pO2 ABG pO2 98.5 H ABG HCO3 ABG O2 Saturation ABG Base Excess ABG Hemoglobin 7.2 L ABG Oxyhemoglobin Oxyhemoglobin Sodium Potassium Chloride Carbon Dioxide BUN Creatinine Glucose POC Glucose 206 H Lactic Acid Calcium Phosphorus Magnesium AST ALT Alkaline Phosphatase C-Reactive Protein Total Protein Albumin Triglycerides Ur Specific [place]rine Creatinine Crossmatch 06/21/21 06/21/21 06/21/21 04:42 05:08 11:06 WBC RBC Hgb Hct MCV MCH RDW Plt Count Lymph % (Auto) [place] % (Auto) Lymph # (Auto) [place] # (Auto) Seg Neutrophils % Seg Neuts % (Manual) Lymphocytes % (Manual) Monocytes % (Manual) Seg Neutrophils # Seg Neutrophils # Man Lymphocytes # (Manual) Monocytes # (Manual) PT INR APTT Fibrinogen D-Dimer ABG pH POC ABG pCO2 POC ABG pO2 ABG pO2 ABG HCO3 ABG O2 Saturation ABG Base Excess ABG Hemoglobin ABG Oxyhemoglobin Oxyhemoglobin Sodium 151 H Potassium Chloride 117.2 H Carbon Dioxide 21 L BUN 75 H Creatinine 1.6 H Glucose 216 H POC Glucose 190 H 204 H Lactic Acid Calcium 7.9 L Phosphorus Magnesium 2.60 H AST ALT Alkaline Phosphatase C-Reactive Protein Total Protein Albumin Triglycerides 254 H Ur Specific [place]rine Creatinine Crossmatch 06/21/21 06/21/21 06/21/21 14:00 16:42 21:52 WBC RBC Hgb 7.1 L 7.2 L Hct 22.0 L 22.1 L MCV MCH RDW Plt Count Lymph % (Auto) [place] % (Auto) Lymph # (Auto) [place] # (Auto) Seg Neutrophils % Seg Neuts % (Manual) Lymphocytes % (Manual) Monocytes % (Manual) Seg Neutrophils # Seg Neutrophils # Man Lymphocytes # (Manual) Monocytes # (Manual) PT INR APTT Fibrinogen D-Dimer ABG pH POC ABG pCO2 POC ABG pO2 ABG pO2 ABG HCO3 ABG O2 Saturation ABG Base Excess ABG Hemoglobin ABG Oxyhemoglobin Oxyhemoglobin Sodium Potassium Chloride Carbon Dioxide BUN Creatinine Glucose POC Glucose 207 H Lactic Acid Calcium Phosphorus Magnesium AST ALT Alkaline Phosphatase C-Reactive Protein Total Protein Albumin Triglycerides Ur Specific [place]rine Creatinine Crossmatch 06/21/21 06/22/21 06/22/21 23:29 04:30 04:30 WBC 16.8 H RBC 2.93 L Hgb 7.4 L Hct 23.9 L MCV MCH 25 L RDW 21.8 H Plt Count Lymph % (Auto) [place] % (Auto) Lymph # (Auto) [place] # (Auto) Seg Neutrophils % Seg Neuts % (Manual) Lymphocytes % (Manual) Monocytes % (Manual) Seg Neutrophils # Seg Neutrophils # Man Lymphocytes # (Manual) Monocytes # (Manual) PT INR APTT Fibrinogen D-Dimer ABG pH POC ABG pCO2 POC ABG pO2 ABG pO2 ABG HCO3 ABG O2 Saturation ABG Base Excess ABG Hemoglobin ABG Oxyhemoglobin Oxyhemoglobin Sodium 151 H Potassium Chloride 118.7 H Carbon Dioxide BUN 57 H Creatinine Glucose 238 H POC Glucose 273 H Lactic Acid Calcium 8.0 L Phosphorus Magnesium 2.70 H AST ALT Alkaline Phosphatase C-Reactive Protein Total Protein Albumin Triglycerides Ur Specific [place]rine Creatinine Crossmatch 06/22/21 06/22/21 06/22/21 05:17 11:31 14:20 WBC RBC Hgb 7.4 L Hct 22.5 L MCV MCH RDW Plt Count Lymph % (Auto) [place] % (Auto) Lymph # (Auto) [place] # (Auto) Seg Neutrophils % Seg Neuts % (Manual) Lymphocytes % (Manual) Monocytes % (Manual) Seg Neutrophils # Seg Neutrophils # Man Lymphocytes # (Manual) Monocytes # (Manual) PT INR APTT Fibrinogen D-Dimer ABG pH POC ABG pCO2 POC ABG pO2 ABG pO2 ABG HCO3 ABG O2 Saturation ABG Base Excess ABG Hemoglobin ABG Oxyhemoglobin Oxyhemoglobin Sodium Potassium Chloride Carbon Dioxide BUN Creatinine Glucose POC Glucose 214 H 214 H Lactic Acid Calcium Phosphorus Magnesium AST ALT Alkaline Phosphatase C-Reactive Protein Total Protein Albumin Triglycerides Ur Specific [place]rine Creatinine Crossmatch 06/22/21 06/22/21 06/23/21 17:18 23:47 05:33 WBC RBC Hgb Hct MCV MCH RDW Plt Count Lymph % (Auto) [place] % (Auto) Lymph # (Auto) [place] # (Auto) Seg Neutrophils % Seg Neuts % (Manual) Lymphocytes % (Manual) Monocytes % (Manual) Seg Neutrophils # Seg Neutrophils # Man Lymphocytes # (Manual) Monocytes # (Manual) PT INR APTT Fibrinogen D-Dimer ABG pH POC ABG pCO2 POC ABG pO2 ABG pO2 ABG HCO3 ABG O2 Saturation ABG Base Excess ABG Hemoglobin ABG Oxyhemoglobin Oxyhemoglobin Sodium Potassium Chloride Carbon Dioxide BUN Creatinine Glucose POC Glucose 238 H 227 H 202 H Lactic Acid Calcium Phosphorus Magnesium AST ALT Alkaline Phosphatase C-Reactive Protein Total Protein Albumin Triglycerides Ur Specific [place]rine Creatinine Crossmatch 06/23/21 06/23/21 06/23/21 10:04 10:04 11:06 WBC 20.3 H RBC 2.71 L Hgb 7.3 L Hct 21.8 L MCV MCH 27 L RDW 22.1 H Plt Count Lymph % (Auto) [place] % (Auto) Lymph # (Auto) [place] # (Auto) Seg Neutrophils % Seg Neuts % (Manual) Lymphocytes % (Manual) Monocytes % (Manual) Seg Neutrophils # Seg Neutrophils # Man Lymphocytes # (Manual) Monocytes # (Manual) PT INR APTT Fibrinogen D-Dimer ABG pH POC ABG pCO2 POC ABG pO2 ABG pO2 ABG HCO3 ABG O2 Saturation ABG Base Excess ABG Hemoglobin ABG Oxyhemoglobin Oxyhemoglobin Sodium 151 H Potassium 3.2 L Chloride 116.9 H Carbon Dioxide BUN 40 H Creatinine Glucose 208 H POC Glucose 204 H Lactic Acid Calcium 8.0 L Phosphorus 1.80 L D Magnesium AST ALT Alkaline Phosphatase C-Reactive Protein Total Protein Albumin Triglycerides Ur Specific [place]rine Creatinine Crossmatch 06/23/21 06/23/21 06/24/21 16:11 23:47 04:00 WBC 16.9 H RBC 2.49 L Hgb 6.6 L Hct 20.3 L MCV MCH 26 L RDW 22.6 H Plt Count Lymph % (Auto) [place] % (Auto) Lymph # (Auto) [place] # (Auto) Seg Neutrophils % Seg Neuts % (Manual) Lymphocytes % (Manual) Monocytes % (Manual) Seg Neutrophils # Seg Neutrophils # Man Lymphocytes # (Manual) Monocytes # (Manual) PT INR APTT Fibrinogen D-Dimer ABG pH POC ABG pCO2 POC ABG pO2 ABG pO2 ABG HCO3 ABG O2 Saturation ABG Base Excess ABG Hemoglobin ABG Oxyhemoglobin Oxyhemoglobin Sodium Potassium Chloride Carbon Dioxide BUN Creatinine Glucose POC Glucose 228 H 189 H Lactic Acid Calcium Phosphorus Magnesium AST ALT Alkaline Phosphatase C-Reactive Protein Total Protein Albumin Triglycerides Ur Specific [place]rine Creatinine Crossmatch 06/24/21 06/24/21 06/24/21 04:00 05:43 06:40 WBC RBC Hgb Hct MCV MCH RDW Plt Count Lymph % (Auto) [place] % (Auto) Lymph # (Auto) [place] # (Auto) Seg Neutrophils % Seg Neuts % (Manual) Lymphocytes % (Manual) Monocytes % (Manual) Seg Neutrophils # Seg Neutrophils # Man Lymphocytes # (Manual) Monocytes # (Manual) PT INR APTT Fibrinogen D-Dimer ABG pH POC ABG pCO2 POC ABG pO2 ABG pO2 ABG HCO3 ABG O2 Saturation ABG Base Excess ABG Hemoglobin ABG Oxyhemoglobin Oxyhemoglobin Sodium 148 H Potassium 3.2 L Chloride 115.6 H Carbon Dioxide BUN 35 H Creatinine Glucose 153 H POC Glucose 134 H Lactic Acid Calcium 7.9 L Phosphorus 2.40 L D Magnesium AST ALT Alkaline Phosphatase C-Reactive Protein Total Protein Albumin Triglycerides Ur Specific [place]rine Creatinine Crossmatch See Detail 06/24/21 06/24/21 06/24/21 11:08 16:47 21:49 WBC RBC Hgb Hct MCV MCH RDW Plt Count Lymph % (Auto) [place] % (Auto) Lymph # (Auto) [place] # (Auto) Seg Neutrophils % Seg Neuts % (Manual) Lymphocytes % (Manual) Monocytes % (Manual) Seg Neutrophils # Seg Neutrophils # Man Lymphocytes # (Manual) Monocytes # (Manual) PT INR APTT Fibrinogen D-Dimer ABG pH POC ABG pCO2 POC ABG pO2 ABG pO2 ABG HCO3 ABG O2 Saturation ABG Base Excess ABG Hemoglobin ABG Oxyhemoglobin Oxyhemoglobin Sodium Potassium Chloride Carbon Dioxide BUN Creatinine Glucose POC Glucose 153 H 201 H 132 H Lactic Acid Calcium Phosphorus Magnesium AST ALT Alkaline Phosphatase C-Reactive Protein Total Protein Albumin Triglycerides Ur Specific [place]rine Creatinine Crossmatch 06/24/21 06/25/21 06/25/21 23:24 05:30 09:00 WBC RBC Hgb 8.3 L Hct 27.0 L MCV MCH RDW Plt Count Lymph % (Auto) [place] % (Auto) Lymph # (Auto) [place] # (Auto) Seg Neutrophils % Seg Neuts % (Manual) Lymphocytes % (Manual) Monocytes % (Manual) Seg Neutrophils # Seg Neutrophils # Man Lymphocytes # (Manual) Monocytes # (Manual) PT INR APTT Fibrinogen D-Dimer ABG pH POC ABG pCO2 POC ABG pO2 ABG pO2 ABG HCO3 ABG O2 Saturation ABG Base Excess ABG Hemoglobin ABG Oxyhemoglobin Oxyhemoglobin Sodium Potassium Chloride Carbon Dioxide BUN Creatinine Glucose POC Glucose 170 H 151 H Lactic Acid Calcium Phosphorus Magnesium AST ALT Alkaline Phosphatase C-Reactive Protein Total Protein Albumin Triglycerides Ur Specific [place]rine Creatinine Crossmatch 06/25/21 06/25/21 06/25/21 11:29 14:24 16:48 WBC RBC Hgb 8.5 L Hct 27.5 L MCV MCH RDW Plt Count Lymph % (Auto) [place] % (Auto) Lymph # (Auto) [place] # (Auto) Seg Neutrophils % Seg Neuts % (Manual) Lymphocytes % (Manual) Monocytes % (Manual) Seg Neutrophils # Seg Neutrophils # Man Lymphocytes # (Manual) Monocytes # (Manual) PT INR APTT Fibrinogen D-Dimer ABG pH POC ABG pCO2 POC ABG pO2 ABG pO2 ABG HCO3 ABG O2 Saturation ABG Base Excess ABG Hemoglobin ABG Oxyhemoglobin Oxyhemoglobin Sodium Potassium Chloride Carbon Dioxide BUN Creatinine Glucose POC Glucose 189 H 224 H Lactic Acid Calcium Phosphorus Magnesium AST ALT Alkaline Phosphatase C-Reactive Protein Total Protein Albumin Triglycerides Ur Specific [place]rine Creatinine Crossmatch 06/25/21 06/25/21 06/25/21 23:39 Unknown Unknown WBC 16.5 H RBC 2.90 L Hgb 8.0 L Hct 23.8 L MCV MCH RDW 22.8 H Plt Count Lymph % (Auto) [place] % (Auto) Lymph # (Auto) [place] # (Auto) Seg Neutrophils % Seg Neuts % (Manual) Lymphocytes % (Manual) Monocytes % (Manual) Seg Neutrophils # Seg Neutrophils # Man Lymphocytes # (Manual) Monocytes # (Manual) PT INR APTT Fibrinogen D-Dimer ABG pH POC ABG pCO2 POC ABG pO2 ABG pO2 ABG HCO3 ABG O2 Saturation ABG Base Excess ABG Hemoglobin ABG Oxyhemoglobin Oxyhemoglobin Sodium 149 H Potassium Chloride 115.6 H Carbon Dioxide BUN 28 H Creatinine Glucose 157 H POC Glucose 187 H Lactic Acid Calcium 8.0 L Phosphorus Magnesium AST ALT Alkaline Phosphatase C-Reactive Protein Total Protein Albumin Triglycerides Ur Specific [place]rine Creatinine Crossmatch 06/26/21 06/26/21 06/26/21 05:22 05:29 05:29 WBC 16.2 H RBC 3.03 L Hgb 8.0 L Hct 25.1 L MCV MCH 26 L RDW 23.2 H Plt Count Lymph % (Auto) [place] % (Auto) Lymph # (Auto) [place] # (Auto) Seg Neutrophils % Seg Neuts % (Manual) Lymphocytes % (Manual) Monocytes % (Manual) Seg Neutrophils # Seg Neutrophils # Man Lymphocytes # (Manual) Monocytes # (Manual) PT INR APTT Fibrinogen D-Dimer ABG pH POC ABG pCO2 POC ABG pO2 ABG pO2 ABG HCO3 ABG O2 Saturation ABG Base Excess ABG Hemoglobin ABG Oxyhemoglobin Oxyhemoglobin Sodium 150 H Potassium Chloride 114.8 H Carbon Dioxide BUN 29 H Creatinine Glucose 229 H POC Glucose 211 H Lactic Acid Calcium 8.2 L Phosphorus Magnesium AST ALT Alkaline Phosphatase C-Reactive Protein Total Protein Albumin Triglycerides Ur Specific [place]rine Creatinine Crossmatch 06/26/21 06/26/21 06/26/21 11:05 15:59 22:00 WBC RBC Hgb Hct MCV MCH RDW Plt Count Lymph % (Auto) [place] % (Auto) Lymph # (Auto) [place] # (Auto) Seg Neutrophils % Seg Neuts % (Manual) Lymphocytes % (Manual) Monocytes % (Manual) Seg Neutrophils # Seg Neutrophils # Man Lymphocytes # (Manual) Monocytes # (Manual) PT INR APTT Fibrinogen D-Dimer ABG pH POC ABG pCO2 POC ABG pO2 ABG pO2 ABG HCO3 ABG O2 Saturation ABG Base Excess ABG Hemoglobin ABG Oxyhemoglobin Oxyhemoglobin Sodium Potassium Chloride Carbon Dioxide BUN Creatinine Glucose POC Glucose 213 H 222 H 161 H Lactic Acid Calcium Phosphorus Magnesium AST ALT Alkaline Phosphatase C-Reactive Protein Total Protein Albumin Triglycerides Ur Specific [place] Urine Creatinine Crossmatch 06/26/21 06/27/21 06/27/21 23:24 04:15 04:15 WBC 14.3 H RBC 2.96 L Hgb 8.1 L Hct 24.6 L MCV MCH 27 L RDW 23.0 H Plt Count Lymph % (Auto) [place] % (Auto) Lymph # (Auto) [place] # (Auto) Seg Neutrophils % Seg Neuts % (Manual) Lymphocytes % (Manual) Monocytes % (Manual) Seg Neutrophils # Seg Neutrophils # Man Lymphocytes # (Manual) Monocytes # (Manual) PT INR APTT Fibrinogen D-Dimer ABG pH POC ABG pCO2 POC ABG pO2 ABG pO2 ABG HCO3 ABG O2 Saturation ABG Base Excess ABG Hemoglobin ABG Oxyhemoglobin Oxyhemoglobin Sodium 150 H Potassium Chloride 113.8 H Carbon Dioxide BUN 26 H Creatinine Glucose 246 H POC Glucose 164 H Lactic Acid Calcium 7.8 L Phosphorus Magnesium AST ALT Alkaline Phosphatase C-Reactive Protein Total Protein Albumin Triglycerides Ur Specific [place] Urine Creatinine Crossmatch 06/27/21 06/27/21 06/27/21 05:44 11:07 16:06 WBC RBC Hgb Hct MCV MCH RDW Plt Count Lymph % (Auto) [place] % (Auto) Lymph # (Auto) [place] # (Auto) Seg Neutrophils % Seg Neuts % (Manual) Lymphocytes % (Manual) Monocytes % (Manual) Seg Neutrophils # Seg Neutrophils # Man Lymphocytes # (Manual) Monocytes # (Manual) PT INR APTT Fibrinogen D-Dimer ABG pH POC ABG pCO2 POC ABG pO2 ABG pO2 ABG HCO3 ABG O2 Saturation ABG Base Excess ABG Hemoglobin ABG Oxyhemoglobin Oxyhemoglobin Sodium Potassium Chloride Carbon Dioxide BUN Creatinine Glucose POC Glucose 226 H 204 H 224 H Lactic Acid Calcium Phosphorus Magnesium AST ALT Alkaline Phosphatase C-Reactive Protein Total Protein Albumin Triglycerides Ur Specific [place] Urine Creatinine Crossmatch 06/27/21 06/28/21 06/28/21 23:49 04:00 04:00 WBC 15.4 H RBC 3.05 L Hgb 8.2 L Hct 25.0 L MCV MCH 27 L RDW 22.6 H Plt Count Lymph % (Auto) [place] % (Auto) Lymph # (Auto) [place] # (Auto) Seg Neutrophils % Seg Neuts % (Manual) Lymphocytes % (Manual) Monocytes % (Manual) Seg Neutrophils # Seg Neutrophils # Man Lymphocytes # (Manual) Monocytes # (Manual) PT INR APTT Fibrinogen D-Dimer ABG pH POC ABG pCO2 POC ABG pO2 ABG pO2 ABG HCO3 ABG O2 Saturation ABG Base Excess ABG Hemoglobin ABG Oxyhemoglobin Oxyhemoglobin Sodium 152 H Potassium 3.0 L Chloride 114.9 H Carbon Dioxide BUN 24 H Creatinine Glucose 158 H POC Glucose 195 H Lactic Acid Calcium 8.1 L Phosphorus Magnesium AST ALT Alkaline Phosphatase C-Reactive Protein Total Protein Albumin Triglycerides Ur Specific [place] Urine Creatinine Crossmatch 06/28/21 06/28/21 06/28/21 05:05 11:47 17:21 WBC RBC Hgb Hct MCV MCH RDW Plt Count Lymph % (Auto) [place] % (Auto) Lymph # (Auto) [place] # (Auto) Seg Neutrophils % Seg Neuts % (Manual) Lymphocytes % (Manual) Monocytes % (Manual) Seg Neutrophils # Seg Neutrophils # Man Lymphocytes # (Manual) Monocytes # (Manual) PT INR APTT Fibrinogen D-Dimer ABG pH POC ABG pCO2 POC ABG pO2 ABG pO2 ABG HCO3 ABG O2 Saturation ABG Base Excess ABG Hemoglobin ABG Oxyhemoglobin Oxyhemoglobin Sodium Potassium Chloride Carbon Dioxide BUN Creatinine Glucose POC Glucose 121 H 164 H 166 H Lactic Acid Calcium Phosphorus Magnesium AST ALT Alkaline Phosphatase C-Reactive Protein Total Protein Albumin Triglycerides Ur Specific [place] Urine Creatinine Crossmatch 06/28/21 06/28/21 06/29/21 18:14 21:54 00:55 WBC RBC Hgb Hct MCV MCH RDW Plt Count Lymph % (Auto) [place] % (Auto) Lymph # (Auto) [place] # (Auto) Seg Neutrophils % Seg Neuts % (Manual) Lymphocytes % (Manual) Monocytes % (Manual) Seg Neutrophils # Seg Neutrophils # Man Lymphocytes # (Manual) Monocytes # (Manual) PT INR APTT Fibrinogen D-Dimer ABG pH POC ABG pCO2 POC ABG pO2 ABG pO2 ABG HCO3 ABG O2 Saturation ABG Base Excess ABG Hemoglobin ABG Oxyhemoglobin Oxyhemoglobin Sodium Potassium Chloride Carbon Dioxide BUN Creatinine Glucose POC Glucose 150 H 148 H 176 H Lactic Acid Calcium Phosphorus Magnesium AST ALT Alkaline Phosphatase C-Reactive Protein Total Protein Albumin Triglycerides Ur Specific [place] Urine Creatinine Crossmatch 06/29/21 06/29/21 06/29/21 04:00 04:00 05:20 WBC 15.3 H RBC 3.04 L Hgb 8.0 L Hct 25.0 L MCV MCH 26 L RDW 22.3 H Plt Count Lymph % (Auto) [place] % (Auto) Lymph # (Auto) [place] # (Auto) Seg Neutrophils % Seg Neuts % (Manual) Lymphocytes % (Manual) Monocytes % (Manual) Seg Neutrophils # Seg Neutrophils # Man Lymphocytes # (Manual) Monocytes # (Manual) PT INR APTT Fibrinogen D-Dimer ABG pH POC ABG pCO2 POC ABG pO2 ABG pO2 ABG HCO3 ABG O2 Saturation ABG Base Excess ABG Hemoglobin ABG Oxyhemoglobin Oxyhemoglobin Sodium Potassium 3.1 L Chloride 108.7 H Carbon Dioxide BUN 20 H Creatinine Glucose 194 H POC Glucose 185 H Lactic Acid Calcium 8.0 L Phosphorus Magnesium AST ALT Alkaline Phosphatase C-Reactive Protein Total Protein Albumin Triglycerides Ur Specific [place] Urine Creatinine Crossmatch
--- NOTE | 2021-06-29 10:37 | Progress Note ---
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 06/29/21: Speech did see but patient had decreased voice quality and increased wob so aborted. Will ask them to assess again on Thursday. Chest tube out and ordered follow up CXR. Stable for transfer but ok with continuing monitoring in ICU. If bed needed could go to step down. 06/28/21: monitor drainage in ICU for 24 more hours. Can likely come out tomorrow. Continue in ICU for now. Once chest tube out, no objection to transfer. 06/27/21: Will place chest tube to water seal. Instructed staff if any change in respiratory status, place back on suction and obtain CXR. Otherwise will leave off. Continue T-piece as tolerated. Rehab/alf/LTACH appropriate. STable for transfer if and when bed becomes available. 06/26/21: T-piece today. If off the vent, agree with surgery and removal of chest tube as subq emphysema is improving as well. PT has seen suggested LTACH, however if we are able to wean she may need alf/rehab. Prognosis continues to improve. 06/25/21: Continue PSV as tolerated. Hopeful T-piece in the next 24-48 hours. Will drop steroids down further on . Can switch to daily and even ch chris to oral. PT/OT consult, and follow up recs. May need LTACH vs rehab vs both. Continue to follow. 06/24/21: Daily PSV trials. Maybe ready for T-piece sson. Continue to wean steroids to off. IMS changed to 40q12 which is fine. Continue chest tube until off vent. Still on list for [facility] but will discuss with CM about checking into LTACH as patient will need rehab. PT/OT consult. 06/21/21: Continue current level of sedation. Chest tube does not have air leak but there is clear evidence of a PTX on right. Stripped tube at bedside and will repeat CXR in the morning. Hold on weaning sedation for now and hold on PSV trials. May need second chest tube vs vats if PTX worsens or does not resolve. Patient still on list for [facility], hopeful they will have a bed soon. Drop steroids to 40q8 starting Thursday. Monitor renal function, likely will improve. Needs more free water. Prognosis still remains guarded. 06/20/21: Restart some sedation. At least pain and maybe diprovan. Would like to wake patient up at some point and attempt some PSV trials. Labs are off this am. Large bump in white count but no fever, also no diff drawn. Could be error vs steroid related but this is in just 24 hours. Will repeat tomorrow. If spikes a temp neves culture as well. Small bump in Cr but still in normal range. Will watch. Now that peg in place, tube feeds and free water flushes. Still on list for [facility]. Patient has been steroids greater than 7 days so will have to wean. Can drop to 60q8 starting tomorrow. Prognosis still remains guarded. 06/19/21: surgery to attempt trach and peg today. Still will ask to keep on transfer list for [facility] as her other issues still need to be addressed. If able to place peg, can stop clinimix, give free water and start tube feeds. Prognosis remains guarded. pH better with drop in tidal volume. 06/18/21: [facility] has agreed to accept but no ICU beds available at this time. Spoke with Dr. Vasquez yesterday and Dr. Patricia spoke with ENT there. Spoke with RT this am and patient did have a leak when cuff let down and her tidal volumes dropped to below 100. Patient remains on abx and steriods. Will consider lightening sedation tomorrow and seeing how patient does if cuff leak persists. Dropped tidal volumes to 450. Continue PPN for now. 06/17/21: spoke with surgery and they feel transfer is reasonable. I have reached out to [facility] and [facility] has spoken with someone from [place]. Await to hear back from them. Continue supportive measures and adequate sedation for pain control. No PSV trials as of yet. Blood sugar control, increase lantus. Most likely secondary to steroids. Continue abx therapy. Guarded prognosis. 06/16/21: Renal function improved with fluids. IMS to give more fluids (LR) today which I agree with. FeNa is =0.7. Should be fluid responsive. Continue clinimix. Needs long acting insulin. Agree with lantus. Asked nursing to increase sedation now that we know that patient's mental status is stable. Picc today. Air leak test vs Neck CT on tomorrow. 06/15/21: Hopeful with worsening renal function ( likely from code on yesterday) that sedatives are just lingering from that. Still making good urine but output has fallen off. Will send urine sodium and urine cr to check Fena. Most likely this is prerenal. ordered renal ultrasound as well. Continue abx and steroids. Will start clinimix today. This should help with the free water piece. Will give another liter bolus of LR right now. Keep sedation off for now. Guarded prognosis. 06/14/21: Will discuss with surgery future plans. They have ordered steroids to help with inflammation and abx continue. All others appears stable and no acute evidence of bleeding at this time. Follow up surgery recs if any new ones. Guarded prognosis. 06/13/21: Patient to back to OR today. BLood transfusion. Will send DIC panel and may need to given cryo if over 6 units of PRBC's given. Patient will likely need trach and peg as we need to address nutrition. Chest tube placed, large bore now. Patient now with right sided effusion. Hemothorax???. Will continue to monitor output. Needs picc line as femoral should come out soon. Continue pressors. Continue sedation for pain control and comfort. Guarded prognosis. Surgery comfortable with neck and current situation so they have not request transfer. 1. Placed right femoral central line. pressors can run through this. 2. Repeat chemistry stat given bicarb of 8 and blood sugar of greater than 600. Ordering FSBS now. Earlier bicarb was 25. If accurate will need bicarb drip and vasopressin but not sure as pH on blood gas was normal done around the same time. 3. Coagulopathy is improving. INR down to 4.55 and PTT and pT improving. Will continue to give FFP. Ordered more vitamin K. H/H is stable but patient is oozing from neck and mouth. 4. Vasopressor for blood pressure. Need to keep map 65 and greater 5. Lujan is needed for accurate I/O 6. Surgery called by IMS about current CT situation. They state they will reassess in the am. I have reviewed the images myself. If I can position the patient safely without compromising the airway after adequate sedation, may consider placing chest tube now as INR is better and FFP is hanging. Patient is morbidly obese so shits could move the ET tube so if not safe, will wait until surgery comes in the morning. 7. Would not attempt to pass OG or NG tube given current situation in neck 8. Will discuss with surgery tomorrow but I feel this patient should be transferred to a tertiary care facility with ENT as we do not have that service here. CCT 31 minutes. Subjective Date of service: 06/29/21 Interval history: Awake and alert. On T-Piece. No distress. Objective Vital Signs - 12hr 06/28/21 06/28/21 06/28/21 23:01 23:31 23:53 Temperature Pulse Rate 117 H 93 H 88 Pulse Rate [ From Monitor] Respiratory 25 H 22 24 Rate Blood Pressure 166/77 166/77 166/77 O2 Sat by Pulse 99 100 95 Oximetry O2 Sat by Pulse Oximetry [ Assessment] 06/29/21 06/29/21 06/29/21 00:00 00:31 00:37 Temperature Pulse Rate 96 H 113 H 114 H Pulse Rate [ 91 H From Monitor] Respiratory 26 H 27 H Rate Blood Pressure 153/73 121/67 121/67 O2 Sat by Pulse 100 97 Oximetry O2 Sat by Pulse 100 Oximetry [ Assessment] 06/29/21 06/29/21 06/29/21 01:01 01:31 02:00 Temperature Pulse Rate 104 H 113 H 93 H Pulse Rate [ From Monitor] Respiratory 22 17 22 Rate Blood Pressure 149/77 149/77 131/68 O2 Sat by Pulse 98 95 Oximetry O2 Sat by Pulse Oximetry [ Assessment] 06/29/21 06/29/21 06/29/21 02:31 03:00 03:31 Temperature Pulse Rate 90 90 99 H Pulse Rate [ From Monitor] Respiratory 20 19 19 Rate Blood Pressure 131/68 134/68 134/68 O2 Sat by Pulse 99 97 Oximetry O2 Sat by Pulse Oximetry [ Assessment] 06/29/21 06/29/21 06/29/21 03:38 04:00 04:31 Temperature 97.6 F Pulse Rate 88 105 H Pulse Rate [ 109 H From Monitor] Respiratory 22 30 H Rate Blood Pressure 141/67 141/67 O2 Sat by Pulse 99 100 98 Oximetry O2 Sat by Pulse Oximetry [ Assessment] 06/29/21 06/29/21 06/29/21 05:00 05:31 06:01 Temperature Pulse Rate 91 H 104 H 98 H Pulse Rate [ From Monitor] Respiratory 29 H 30 H 10 L Rate Blood Pressure 146/75 146/75 153/84 O2 Sat by Pulse 100 100 100 Oximetry O2 Sat by Pulse Oximetry [ Assessment] 06/29/21 06/29/21 06/29/21 06:31 07:01 07:31 Temperature Pulse Rate 106 H 93 H 108 H Pulse Rate [ From Monitor] Respiratory 21 24 23 Rate Blood Pressure 153/84 152/68 152/68 O2 Sat by Pulse 100 100 100 Oximetry O2 Sat by Pulse Oximetry [ Assessment] 06/29/21 06/29/21 06/29/21 08:00 08:31 09:01 Temperature Pulse Rate 110 H 127 H 81 Pulse Rate [ 96 H From Monitor] Respiratory 26 H 33 H 23 Rate Blood Pressure 141/82 141/82 152/74 O2 Sat by Pulse 99 97 97 Oximetry O2 Sat by Pulse Oximetry [ Assessment] 06/29/21 06/29/21 06/29/21 09:22 09:30 09:31 Temperature 98 F Pulse Rate 91 H 89 Pulse Rate [ From Monitor] Respiratory 19 Rate Blood Pressure 152/74 152/74 O2 Sat by Pulse 98 Oximetry O2 Sat by Pulse Oximetry [ Assessment] 06/29/21 10:00 Temperature Pulse Rate 110 H Pulse Rate [ From Monitor] Respiratory 22 Rate Blood Pressure 159/78 O2 Sat by Pulse 97 Oximetry O2 Sat by Pulse Oximetry [ Assessment] Constitutional: alert, other (on vent trach in place) Eyes: non-icteric ENT: oropharynx moist Neck: other (trach in place) Ascultation: Bilateral: clear Percussion: Bilateral: not dull Cardiovascular: regular rate and rhythm Gastrointestinal: normoactive bowel sounds, soft Integumentary: other (subq emphysema) Extremities: no edema, other (subq emphysema) Neurologic: normal mental status CBC and BMP: 06/29/21 04:00 06/29/21 04:00 ABG, PT/INR, D-dimer: ABG ABG pH 7.426 pH Units (7.350-7.450) 06/21/21 04:20 POC ABG pCO2 25.6 mmHg (32.0-48.0) L 06/13/21 04:31 ABG pCO2 35.1 mm Hg 06/21/21 04:20 POC ABG pO2 138.8 mmHg (83-108) H 06/13/21 04:31 ABG pO2 98.5 mm Hg (80.0-90.0) H 06/21/21 04:20 POC ABG HCO3 21.4 06/13/21 04:31 ABG O2 Saturation 97.7 % (95.0-99.0) 06/21/21 04:20 PT/INR, D-dimer PT 18.3 Sec. (12.2-14.9) H 06/20/21 04:33 INR 1.37 (0.87-1.13) H 06/20/21 04:33 D-Dimer 1244.63 ng/mlDDU (0-234) H 06/13/21 Unknown Abnormal lab findings: Abnormal Labs 06/11/21 06/11/21 06/11/21 15:23 15:23 19:20 WBC 12.0 H RBC Hgb Hct MCV 72 L MCH 21 L RDW 17.5 H Plt Count Lymph % (Auto) 12.9 L [place] % (Auto) 8.6 H Lymph # (Auto) Haines # (Auto) 1.0 H Seg Neutrophils % 77.4 H Seg Neuts % (Manual) Lymphocytes % (Manual) Monocytes % (Manual) Seg Neutrophils # 9.3 H Seg Neutrophils # Man Lymphocytes # (Manual) Monocytes # (Manual) PT INR APTT Fibrinogen D-Dimer ABG pH POC ABG pCO2 POC ABG pO2 ABG pO2 ABG HCO3 ABG O2 Saturation ABG Base Excess ABG Hemoglobin ABG Oxyhemoglobin Oxyhemoglobin Sodium Potassium Chloride Carbon Dioxide BUN Creatinine Glucose 144 H POC Glucose Lactic Acid Calcium Phosphorus Magnesium AST ALT Alkaline Phosphatase C-Reactive Protein Total Protein Albumin Triglycerides Ur Specific [place] Urine Creatinine Crossmatch See Detail 06/11/21 06/11/21 06/11/21 19:29 19:29 23:21 WBC 15.8 H RBC Hgb 9.4 L Hct MCV 72 L MCH 22 L RDW 17.4 H Plt Count Lymph % (Auto) 9.2 L [place] % (Auto) Lymph # (Auto) Haines # (Auto) Seg Neutrophils % 89.0 H Seg Neuts % (Manual) Lymphocytes % (Manual) Monocytes % (Manual) Seg Neutrophils # 14.0 H Seg Neutrophils # Man Lymphocytes # (Manual) Monocytes # (Manual) PT 72.9 H INR 8.18 H* APTT 71.7 H* Fibrinogen D-Dimer ABG pH POC ABG pCO2 POC ABG pO2 ABG pO2 ABG HCO3 ABG O2 Saturation ABG Base Excess ABG Hemoglobin ABG Oxyhemoglobin Oxyhemoglobin Sodium 149 H D Potassium Chloride 124.3 H Carbon Dioxide 8 L* D BUN Creatinine 0.3 L Glucose 628 H* POC Glucose Lactic Acid Calcium 2.4 L* D Phosphorus Magnesium AST ALT < 5 L Alkaline Phosphatase 19 L C-Reactive Protein Total Protein 1.6 L D Albumin 0.8 L Triglycerides Ur Specific [place] Urine Creatinine Crossmatch 06/11/21 06/11/21 06/11/21 23:21 23:22 23:42 WBC RBC Hgb Hct MCV MCH 27 L RDW 22.2 H Plt Count 131 L Lymph % (Auto) [place] % (Auto) Lymph # (Auto) [place]aines # (Auto) Seg Neutrophils % Seg Neuts % (Manual) Lymphocytes % (Manual) Monocytes % (Manual) Seg Neutrophils # Seg Neutrophils # Man Lymphocytes # (Manual) Monocytes # (Manual) PT 46.3 H INR 4.55 H APTT 54.8 H Fibrinogen D-Dimer ABG pH POC ABG pCO2 POC ABG pO2 325.9 H ABG pO2 ABG HCO3 ABG O2 Saturation ABG Base Excess ABG Hemoglobin 8.0 L ABG Oxyhemoglobin 99.0 H Oxyhemoglobin Sodium Potassium Chloride Carbon Dioxide BUN Creatinine Glucose POC Glucose Lactic Acid Calcium Phosphorus Magnesium AST ALT Alkaline Phosphatase C-Reactive Protein Total Protein Albumin Triglycerides Ur Specific [place] Urine Creatinine Crossmatch 06/12/21 06/12/21 06/12/21 01:45 01:45 01:45 WBC 21.6 H RBC 3.04 L Hgb 6.7 L D Hct 22.4 L D MCV 74 L MCH 22 L RDW 18.9 H Plt Count Lymph % (Auto) [place] % (Auto) Lymph # (Auto) [place] # (Auto) Seg Neutrophils % Seg Neuts % (Manual) 76.0 H Lymphocytes % (Manual) 2.0 L Monocytes % (Manual) 8.0 H Seg Neutrophils # Seg Neutrophils # Man 16.4 H Lymphocytes # (Manual) 0.4 L Monocytes # (Manual) 1.7 H PT 25.4 H INR 2.10 H APTT Fibrinogen D-Dimer ABG pH POC ABG pCO2 POC ABG pO2 ABG pO2 ABG HCO3 ABG O2 Saturation ABG Base Excess ABG Hemoglobin ABG Oxyhemoglobin Oxyhemoglobin Sodium Potassium 5.6 H D Chloride Carbon Dioxide 20 L D BUN Creatinine Glucose 368 H POC Glucose Lactic Acid Calcium 7.1 L D Phosphorus Magnesium AST ALT Alkaline Phosphatase C-Reactive Protein Total Protein 5.3 L D Albumin 3.1 L Triglycerides Ur Specific [place] Urine Creatinine Crossmatch 06/12/21 06/12/21 06/12/21 02:05 04:41 11:05 WBC 14.6 H RBC 3.52 L Hgb 8.5 L Hct 27.7 L MCV MCH 24 L RDW 20.9 H Plt Count Lymph % (Auto) [place]aines % (Auto) Lymph # (Auto) [place] # (Auto) Seg Neutrophils % Seg Neuts % (Manual) Lymphocytes % (Manual) Monocytes % (Manual) Seg Neutrophils # Seg Neutrophils # Man Lymphocytes # (Manual) Monocytes # (Manual) PT INR APTT Fibrinogen D-Dimer ABG pH POC ABG pCO2 POC ABG pO2 224.6 H ABG pO2 ABG HCO3 ABG O2 Saturation ABG Base Excess ABG Hemoglobin 7.3 L ABG Oxyhemoglobin 98.7 H Oxyhemoglobin Sodium Potassium Chloride Carbon Dioxide BUN Creatinine Glucose POC Glucose 308 H Lactic Acid Calcium Phosphorus Magnesium AST ALT Alkaline Phosphatase C-Reactive Protein Total Protein Albumin Triglycerides Ur Specific [place] Urine Creatinine Crossmatch 06/12/21 06/12/21 06/12/21 11:05 11:05 12:18 WBC RBC Hgb Hct MCV MCH RDW Plt Count Lymph % (Auto) [place] % (Auto) Lymph # (Auto) [place] # (Auto) Seg Neutrophils % Seg Neuts % (Manual) Lymphocytes % (Manual) Monocytes % (Manual) Seg Neutrophils # Seg Neutrophils # Man Lymphocytes # (Manual) Monocytes # (Manual) PT 16.8 H INR 1.23 H APTT Fibrinogen D-Dimer ABG pH POC ABG pCO2 POC ABG pO2 ABG pO2 ABG HCO3 ABG O2 Saturation ABG Base Excess ABG Hemoglobin ABG Oxyhemoglobin Oxyhemoglobin Sodium Potassium Chloride Carbon Dioxide BUN 24 H Creatinine Glucose 324 H POC Glucose 281 H Lactic Acid Calcium 7.5 L Phosphorus Magnesium AST 70 H ALT 57 H Alkaline Phosphatase C-Reactive Protein Total Protein 6.0 L Albumin 3.6 L Triglycerides Ur Specific [place] Urine Creatinine Crossmatch 06/12/21 06/12/21 06/12/21 17:00 17:00 17:00 WBC RBC Hgb 7.5 L Hct 24.0 L MCV MCH RDW Plt Count Lymph % (Auto) [place] % (Auto) Lymph # (Auto) [place]aines # (Auto) Seg Neutrophils % Seg Neuts % (Manual) Lymphocytes % (Manual) Monocytes % (Manual) Seg Neutrophils # Seg Neutrophils # Man Lymphocytes # (Manual) Monocytes # (Manual) PT 16.0 H INR 1.16 H APTT Fibrinogen D-Dimer ABG pH POC ABG pCO2 POC ABG pO2 ABG pO2 ABG HCO3 ABG O2 Saturation ABG Base Excess ABG Hemoglobin ABG Oxyhemoglobin Oxyhemoglobin Sodium Potassium Chloride Carbon Dioxide BUN Creatinine Glucose POC Glucose Lactic Acid Calcium Phosphorus Magnesium AST ALT Alkaline Phosphatase C-Reactive Protein Total Protein Albumin Triglycerides Ur Specific [place] 1.035 H Urine Creatinine Crossmatch 06/12/21 06/12/21 06/12/21 18:06 23:00 23:05 WBC RBC Hgb 7.6 L Hct 23.5 L MCV MCH RDW Plt Count Lymph % (Auto) [place] % (Auto) Lymph # (Auto) [place] # (Auto) Seg Neutrophils % Seg Neuts % (Manual) Lymphocytes % (Manual) Monocytes % (Manual) Seg Neutrophils # Seg Neutrophils # Man Lymphocytes # (Manual) Monocytes # (Manual) PT INR APTT Fibrinogen D-Dimer ABG pH POC ABG pCO2 POC ABG pO2 ABG pO2 ABG HCO3 ABG O2 Saturation ABG Base Excess ABG Hemoglobin ABG Oxyhemoglobin Oxyhemoglobin Sodium Potassium Chloride Carbon Dioxide BUN Creatinine Glucose POC Glucose 257 H 300 H Lactic Acid Calcium Phosphorus Magnesium AST ALT Alkaline Phosphatase C-Reactive Protein Total Protein Albumin Triglycerides Ur Specific [place] Urine Creatinine Crossmatch 06/13/21 06/13/21 06/13/21 04:31 05:19 07:30 WBC RBC Hgb 6.8 L Hct 21.7 L MCV MCH RDW Plt Count Lymph % (Auto) [place] % (Auto) Lymph # (Auto) [place] # (Auto) Seg Neutrophils % Seg Neuts % (Manual) Lymphocytes % (Manual) Monocytes % (Manual) Seg Neutrophils # Seg Neutrophils # Man Lymphocytes # (Manual) Monocytes # (Manual) PT INR APTT Fibrinogen D-Dimer ABG pH 7.541 H POC ABG pCO2 25.6 L POC ABG pO2 138.8 H ABG pO2 ABG HCO3 ABG O2 Saturation ABG Base Excess ABG Hemoglobin 7.3 L ABG Oxyhemoglobin 98.1 H Oxyhemoglobin Sodium Potassium Chloride Carbon Dioxide BUN Creatinine Glucose POC Glucose 286 H Lactic Acid Calcium Phosphorus Magnesium AST ALT Alkaline Phosphatase C-Reactive Protein Total Protein Albumin Triglycerides Ur Specific [place] Urine Creatinine Crossmatch 06/13/21 06/13/21 06/13/21 07:30 12:04 14:50 WBC RBC Hgb Hct MCV MCH RDW Plt Count Lymph % (Auto) [place] % (Auto) Lymph # (Auto) [place] # (Auto) Seg Neutrophils % Seg Neuts % (Manual) Lymphocytes % (Manual) Monocytes % (Manual) Seg Neutrophils # Seg Neutrophils # Man Lymphocytes # (Manual) Monocytes # (Manual) PT INR APTT Fibrinogen D-Dimer ABG pH 7.039 L* 7.182 L* POC ABG pCO2 POC ABG pO2 ABG pO2 63.1 L ABG HCO3 17.4 L ABG O2 Saturation 73.4 L ABG Base Excess -12.6 L -7.1 L ABG Hemoglobin 7.7 L 6.9 L ABG Oxyhemoglobin Oxyhemoglobin 71.8 L 93.5 L Sodium Potassium Chloride 108.9 H Carbon Dioxide BUN 28 H Creatinine Glucose 293 H POC Glucose Lactic Acid Calcium 7.2 L Phosphorus Magnesium AST 106 H ALT 92 H Alkaline Phosphatase C-Reactive Protein Total Protein 5.6 L Albumin 3.3 L Triglycerides Ur Specific [place] Urine Creatinine Crossmatch 06/13/21 06/13/21 06/13/21 14:54 15:45 17:34 WBC RBC Hgb Hct MCV MCH RDW Plt Count Lymph % (Auto) [place] % (Auto) Lymph # (Auto) [place] # (Auto) Seg Neutrophils % Seg Neuts % (Manual) Lymphocytes % (Manual) Monocytes % (Manual) Seg Neutrophils # Seg Neutrophils # Man Lymphocytes # (Manual) Monocytes # (Manual) PT INR APTT Fibrinogen D-Dimer ABG pH POC ABG pCO2 POC ABG pO2 ABG pO2 178.4 H ABG HCO3 ABG O2 Saturation 99.1 H ABG Base Excess ABG Hemoglobin 8.0 L ABG Oxyhemoglobin Oxyhemoglobin Sodium Potassium Chloride 107.3 H Carbon Dioxide 19 L BUN 33 H Creatinine 1.5 H Glucose 379 H POC Glucose Lactic Acid 5.30 H* Calcium 6.8 L Phosphorus Magnesium AST ALT Alkaline Phosphatase C-Reactive Protein Total Protein Albumin Triglycerides Ur Specific [place] Urine Creatinine Crossmatch 06/13/21 06/13/21 06/13/21 17:40 23:29 Unknown WBC 22.5 H RBC 3.16 L Hgb 8.0 L Hct 26.0 L MCV MCH 26 L RDW 21.4 H Plt Count Lymph % (Auto) [place] % (Auto) Lymph # (Auto) [place] # (Auto) Seg Neutrophils % Seg Neuts % (Manual) 88.0 H Lymphocytes % (Manual) 4.0 L Monocytes % (Manual) Seg Neutrophils # Seg Neutrophils # Man 19.8 H Lymphocytes # (Manual) 0.9 L Monocytes # (Manual) 1.4 H PT INR APTT Fibrinogen D-Dimer ABG pH POC ABG pCO2 POC ABG pO2 ABG pO2 ABG HCO3 ABG O2 Saturation ABG Base Excess ABG Hemoglobin ABG Oxyhemoglobin Oxyhemoglobin Sodium Potassium Chloride Carbon Dioxide BUN Creatinine Glucose POC Glucose 294 H 288 H Lactic Acid Calcium Phosphorus Magnesium AST ALT Alkaline Phosphatase C-Reactive Protein Total Protein Albumin Triglycerides Ur Specific [place] Urine Creatinine Crossmatch 06/13/21 06/14/21 06/14/21 Unknown 05:39 06:15 WBC RBC 2.93 L Hgb 7.2 L Hct 23.2 L MCV MCH 25 L RDW 21.2 H Plt Count Lymph % (Auto) [place] % (Auto) Lymph # (Auto) [place] # (Auto) Seg Neutrophils % Seg Neuts % (Manual) Lymphocytes % (Manual) Monocytes % (Manual) Seg Neutrophils # Seg Neutrophils # Man Lymphocytes # (Manual) Monocytes # (Manual) PT 17.6 H INR 1.31 H APTT Fibrinogen 546 H D-Dimer 1244.63 H ABG pH POC ABG pCO2 POC ABG pO2 ABG pO2 ABG HCO3 ABG O2 Saturation ABG Base Excess ABG Hemoglobin ABG Oxyhemoglobin Oxyhemoglobin Sodium Potassium Chloride Carbon Dioxide BUN Creatinine Glucose POC Glucose 246 H Lactic Acid Calcium Phosphorus Magnesium AST ALT Alkaline Phosphatase C-Reactive Protein Total Protein Albumin Triglycerides Ur Specific [place] Urine Creatinine Crossmatch 06/14/21 06/14/21 06/14/21 06:15 06:15 09:13 WBC RBC Hgb Hct MCV MCH RDW Plt Count Lymph % (Auto) [place] % (Auto) Lymph # (Auto) [place] # (Auto) Seg Neutrophils % Seg Neuts % (Manual) Lymphocytes % (Manual) Monocytes % (Manual) Seg Neutrophils # Seg Neutrophils # Man Lymphocytes # (Manual) Monocytes # (Manual) PT INR APTT Fibrinogen D-Dimer ABG pH POC ABG pCO2 POC ABG pO2 ABG pO2 183.0 H ABG HCO3 ABG O2 Saturation 99.2 H ABG Base Excess ABG Hemoglobin 6.6 L ABG Oxyhemoglobin Oxyhemoglobin Sodium 147 H Potassium Chloride 112.5 H Carbon Dioxide 21 L BUN 36 H Creatinine 1.4 H Glucose 281 H POC Glucose Lactic Acid Calcium 6.9 L Phosphorus Magnesium AST ALT Alkaline Phosphatase C-Reactive Protein Total Protein Albumin Triglycerides 189 H Ur Specific [place] Urine Creatinine Crossmatch 06/14/21 06/14/21 06/14/21 10:45 12:16 13:30 WBC RBC Hgb 7.1 L Hct 22.3 L MCV MCH RDW Plt Count Lymph % (Auto) [place] % (Auto) Lymph # (Auto) [place] # (Auto) Seg Neutrophils % Seg Neuts % (Manual) Lymphocytes % (Manual) Monocytes % (Manual) Seg Neutrophils # Seg Neutrophils # Man Lymphocytes # (Manual) Monocytes # (Manual) PT INR APTT Fibrinogen D-Dimer ABG pH 7.205 L POC ABG pCO2 POC ABG pO2 ABG pO2 261.3 H ABG HCO3 ABG O2 Saturation 99.4 H ABG Base Excess -7.2 L ABG Hemoglobin 7.6 L ABG Oxyhemoglobin Oxyhemoglobin Sodium Potassium Chloride Carbon Dioxide BUN Creatinine Glucose POC Glucose 174 H Lactic Acid Calcium Phosphorus Magnesium AST ALT Alkaline Phosphatase C-Reactive Protein Total Protein Albumin Triglycerides Ur Specific [place] Urine Creatinine Crossmatch 06/14/21 06/14/21 06/15/21 17:40 18:43 00:06 WBC RBC Hgb Hct MCV MCH RDW Plt Count Lymph % (Auto) [place] % (Auto) Lymph # (Auto) [place] # (Auto) Seg Neutrophils % Seg Neuts % (Manual) Lymphocytes % (Manual) Monocytes % (Manual) Seg Neutrophils # Seg Neutrophils # Man Lymphocytes # (Manual) Monocytes # (Manual) PT INR APTT Fibrinogen D-Dimer ABG pH 7.292 L POC ABG pCO2 POC ABG pO2 ABG pO2 78.8 L ABG HCO3 ABG O2 Saturation ABG Base Excess -5.0 L ABG Hemoglobin 9.1 L ABG Oxyhemoglobin Oxyhemoglobin 93.7 L Sodium Potassium Chloride Carbon Dioxide BUN Creatinine Glucose POC Glucose 182 H 144 H Lactic Acid Calcium Phosphorus Magnesium AST ALT Alkaline Phosphatase C-Reactive Protein Total Protein Albumin Triglycerides Ur Specific [place] Urine Creatinine Crossmatch 06/15/21 06/15/21 06/15/21 03:55 03:56 10:40 WBC RBC Hgb 8.4 L Hct 25.8 L MCV MCH RDW Plt Count Lymph % (Auto) [place] % (Auto) Lymph # (Auto) [place] # (Auto) Seg Neutrophils % Seg Neuts % (Manual) Lymphocytes % (Manual) Monocytes % (Manual) Seg Neutrophils # Seg Neutrophils # Man Lymphocytes # (Manual) Monocytes # (Manual) PT INR APTT Fibrinogen D-Dimer ABG pH POC ABG pCO2 POC ABG pO2 ABG pO2 ABG HCO3 ABG O2 Saturation ABG Base Excess ABG Hemoglobin ABG Oxyhemoglobin Oxyhemoglobin Sodium 147 H Potassium Chloride 112.2 H Carbon Dioxide 21 L BUN 47 H Creatinine 1.9 H Glucose 272 H POC Glucose Lactic Acid Calcium 7.3 L Phosphorus Magnesium AST 64 H ALT 106 H Alkaline Phosphatase C-Reactive Protein Total Protein 5.1 L Albumin 2.9 L Triglycerides Ur Specific [place] Urine Creatinine 81.1 H Crossmatch 06/15/21 06/15/21 06/15/21 11:46 17:16 23:17 WBC RBC Hgb Hct MCV MCH RDW Plt Count Lymph % (Auto) [place] % (Auto) Lymph # (Auto) [place]aines # (Auto) Seg Neutrophils % Seg Neuts % (Manual) Lymphocytes % (Manual) Monocytes % (Manual) Seg Neutrophils # Seg Neutrophils # Man Lymphocytes # (Manual) Monocytes # (Manual) PT INR APTT Fibrinogen D-Dimer ABG pH POC ABG pCO2 POC ABG pO2 ABG pO2 ABG HCO3 ABG O2 Saturation ABG Base Excess ABG Hemoglobin ABG Oxyhemoglobin Oxyhemoglobin Sodium Potassium Chloride Carbon Dioxide BUN Creatinine Glucose POC Glucose 271 H 268 H 264 H Lactic Acid Calcium Phosphorus Magnesium AST ALT Alkaline Phosphatase C-Reactive Protein Total Protein Albumin Triglycerides Ur Specific [place] Urine Creatinine Crossmatch 06/15/21 06/15/21 06/16/21 Unknown Unknown 04:32 WBC RBC 3.21 L 3.16 L Hgb 8.4 L 8.2 L Hct 26.1 L 25.4 L MCV MCH 26 L 26 L RDW 21.3 H 21.2 H Plt Count 105 L 118 L Lymph % (Auto) [place] % (Auto) Lymph # (Auto) [place] # (Auto) Seg Neutrophils % Seg Neuts % (Manual) Lymphocytes % (Manual) Monocytes % (Manual) Seg Neutrophils # Seg Neutrophils # Man Lymphocytes # (Manual) Monocytes # (Manual) PT INR APTT Fibrinogen D-Dimer ABG pH 7.465 H POC ABG pCO2 POC ABG pO2 ABG pO2 114.1 H ABG HCO3 ABG O2 Saturation ABG Base Excess ABG Hemoglobin 8.4 L ABG Oxyhemoglobin Oxyhemoglobin Sodium Potassium Chloride Carbon Dioxide BUN Creatinine Glucose POC Glucose Lactic Acid Calcium Phosphorus Magnesium AST ALT Alkaline Phosphatase C-Reactive Protein Total Protein Albumin Triglycerides Ur Specific [place] Urine Creatinine Crossmatch 06/16/21 06/16/21 06/16/21 04:32 04:32 05:08 WBC RBC Hgb Hct MCV MCH RDW Plt Count Lymph % (Auto) [place] % (Auto) Lymph # (Auto) [place] # (Auto) Seg Neutrophils % Seg Neuts % (Manual) Lymphocytes % (Manual) Monocytes % (Manual) Seg Neutrophils # Seg Neutrophils # Man Lymphocytes # (Manual) Monocytes # (Manual) PT INR APTT Fibrinogen D-Dimer ABG pH POC ABG pCO2 POC ABG pO2 ABG pO2 ABG HCO3 ABG O2 Saturation ABG Base Excess ABG Hemoglobin ABG Oxyhemoglobin Oxyhemoglobin Sodium 148 H Potassium 3.3 L Chloride 115.1 H Carbon Dioxide 21 L BUN 54 H Creatinine 1.6 H Glucose 367 H POC Glucose 356 H Lactic Acid Calcium 7.4 L Phosphorus Magnesium AST ALT Alkaline Phosphatase C-Reactive Protein 3.30 H Total Protein Albumin Triglycerides Ur Specific [place] Urine Creatinine Crossmatch 06/16/21 06/16/21 06/16/21 05:30 11:46 17:03 WBC RBC Hgb Hct MCV MCH RDW Plt Count Lymph % (Auto) [place] % (Auto) Lymph # (Auto) [place] # (Auto) Seg Neutrophils % Seg Neuts % (Manual) Lymphocytes % (Manual) Monocytes % (Manual) Seg Neutrophils # Seg Neutrophils # Man Lymphocytes # (Manual) Monocytes # (Manual) PT INR APTT Fibrinogen D-Dimer ABG pH 7.475 H POC ABG pCO2 POC ABG pO2 ABG pO2 171.8 H ABG HCO3 ABG O2 Saturation 99.1 H ABG Base Excess ABG Hemoglobin 11.7 L ABG Oxyhemoglobin Oxyhemoglobin Sodium Potassium Chloride Carbon Dioxide BUN Creatinine Glucose POC Glucose 309 H 345 H Lactic Acid Calcium Phosphorus Magnesium AST ALT Alkaline Phosphatase C-Reactive Protein Total Protein Albumin Triglycerides Ur Specific [place] Urine Creatinine Crossmatch 06/16/21 06/16/21 06/17/21 20:18 23:22 04:50 WBC RBC Hgb Hct MCV MCH RDW Plt Count Lymph % (Auto) [place] % (Auto) Lymph # (Auto) [place] # (Auto) Seg Neutrophils % Seg Neuts % (Manual) Lymphocytes % (Manual) Monocytes % (Manual) Seg Neutrophils # Seg Neutrophils # Man Lymphocytes # (Manual) Monocytes # (Manual) PT INR APTT Fibrinogen D-Dimer ABG pH 7.479 H POC ABG pCO2 POC ABG pO2 ABG pO2 143.1 H ABG HCO3 ABG O2 Saturation ABG Base Excess ABG Hemoglobin 10.0 L ABG Oxyhemoglobin Oxyhemoglobin Sodium Potassium Chloride Carbon Dioxide BUN Creatinine Glucose POC Glucose 325 H 315 H Lactic Acid Calcium Phosphorus Magnesium AST ALT Alkaline Phosphatase C-Reactive Protein Total Protein Albumin Triglycerides Ur Specific [place] Urine Creatinine Crossmatch 06/17/21 06/17/21 06/17/21 05:18 05:30 05:30 WBC RBC 3.17 L Hgb 8.2 L Hct 25.5 L MCV MCH 26 L RDW 21.2 H Plt Count 128 L Lymph % (Auto) [place] % (Auto) Lymph # (Auto) [place] # (Auto) Seg Neutrophils % Seg Neuts % (Manual) Lymphocytes % (Manual) Monocytes % (Manual) Seg Neutrophils # Seg Neutrophils # Man Lymphocytes # (Manual) Monocytes # (Manual) PT INR APTT Fibrinogen D-Dimer ABG pH POC ABG pCO2 POC ABG pO2 ABG pO2 ABG HCO3 ABG O2 Saturation ABG Base Excess ABG Hemoglobin ABG Oxyhemoglobin Oxyhemoglobin Sodium 148 H Potassium Chloride 113.7 H Carbon Dioxide 20 L BUN 57 H Creatinine 1.4 H Glucose 351 H POC Glucose 324 H Lactic Acid Calcium 8.0 L Phosphorus 2.30 L Magnesium AST ALT Alkaline Phosphatase C-Reactive Protein Total Protein Albumin Triglycerides Ur Specific [place] Urine Creatinine Crossmatch 06/17/21 06/17/21 06/17/21 11:49 17:43 21:42 WBC RBC Hgb Hct MCV MCH RDW Plt Count Lymph % (Auto) [place] % (Auto) Lymph # (Auto) [place] # (Auto) Seg Neutrophils % Seg Neuts % (Manual) Lymphocytes % (Manual) Monocytes % (Manual) Seg Neutrophils # Seg Neutrophils # Man Lymphocytes # (Manual) Monocytes # (Manual) PT INR APTT Fibrinogen D-Dimer ABG pH POC ABG pCO2 POC ABG pO2 ABG pO2 ABG HCO3 ABG O2 Saturation ABG Base Excess ABG Hemoglobin ABG Oxyhemoglobin Oxyhemoglobin Sodium Potassium Chloride Carbon Dioxide BUN Creatinine Glucose POC Glucose 305 H 307 H 286 H Lactic Acid Calcium Phosphorus Magnesium AST ALT Alkaline Phosphatase C-Reactive Protein Total Protein Albumin Triglycerides Ur Specific [place] Urine Creatinine Crossmatch 06/17/21 06/18/21 06/18/21 23:59 04:20 04:37 WBC RBC 3.53 L Hgb 9.1 L Hct 28.7 L MCV MCH 26 L RDW 21.3 H Plt Count Lymph % (Auto) [place] % (Auto) Lymph # (Auto) [place] # (Auto) Seg Neutrophils % Seg Neuts % (Manual) Lymphocytes % (Manual) Monocytes % (Manual) Seg Neutrophils # Seg Neutrophils # Man Lymphocytes # (Manual) Monocytes # (Manual) PT INR APTT Fibrinogen D-Dimer ABG pH 7.495 H POC ABG pCO2 POC ABG pO2 ABG pO2 108.3 H ABG HCO3 ABG O2 Saturation ABG Base Excess -2.1 L ABG Hemoglobin 10.0 L ABG Oxyhemoglobin Oxyhemoglobin Sodium Potassium Chloride Carbon Dioxide BUN Creatinine Glucose POC Glucose 264 H Lactic Acid Calcium Phosphorus Magnesium AST ALT Alkaline Phosphatase C-Reactive Protein Total Protein Albumin Triglycerides Ur Specific [place] Urine Creatinine Crossmatch 06/18/21 06/18/21 06/18/21 04:37 05:32 11:21 WBC RBC Hgb Hct MCV MCH RDW Plt Count Lymph % (Auto) [place] % (Auto) Lymph # (Auto) [place] # (Auto) Seg Neutrophils % Seg Neuts % (Manual) Lymphocytes % (Manual) Monocytes % (Manual) Seg Neutrophils # Seg Neutrophils # Man Lymphocytes # (Manual) Monocytes # (Manual) PT INR APTT Fibrinogen D-Dimer ABG pH POC ABG pCO2 POC ABG pO2 ABG pO2 ABG HCO3 ABG O2 Saturation ABG Base Excess ABG Hemoglobin ABG Oxyhemoglobin Oxyhemoglobin Sodium 148 H Potassium Chloride 114.7 H Carbon Dioxide BUN 59 H Creatinine 1.3 H Glucose 329 H POC Glucose 293 H 291 H Lactic Acid Calcium 8.1 L Phosphorus Magnesium AST ALT Alkaline Phosphatase C-Reactive Protein Total Protein Albumin Triglycerides Ur Specific [place] Urine Creatinine Crossmatch 06/18/21 06/18/21 06/19/21 18:21 21:46 00:15 WBC RBC Hgb Hct MCV MCH RDW Plt Count Lymph % (Auto) [place] % (Auto) Lymph # (Auto) [place] # (Auto) Seg Neutrophils % Seg Neuts % (Manual) Lymphocytes % (Manual) Monocytes % (Manual) Seg Neutrophils # Seg Neutrophils # Man Lymphocytes # (Manual) Monocytes # (Manual) PT INR APTT Fibrinogen D-Dimer ABG pH POC ABG pCO2 POC ABG pO2 ABG pO2 ABG HCO3 ABG O2 Saturation ABG Base Excess ABG Hemoglobin ABG Oxyhemoglobin Oxyhemoglobin Sodium Potassium Chloride Carbon Dioxide BUN Creatinine Glucose POC Glucose 239 H 259 H 310 H Lactic Acid Calcium Phosphorus Magnesium AST ALT Alkaline Phosphatase C-Reactive Protein Total Protein Albumin Triglycerides Ur Specific [place] Urine Creatinine Crossmatch 06/19/21 06/19/21 06/19/21 04:00 04:00 04:50 WBC RBC 3.64 L Hgb 9.1 L Hct 29.1 L MCV MCH 25 L RDW 21.5 H Plt Count Lymph % (Auto) [place] % (Auto) Lymph # (Auto) [place] # (Auto) Seg Neutrophils % Seg Neuts % (Manual) Lymphocytes % (Manual) Monocytes % (Manual) Seg Neutrophils # Seg Neutrophils # Man Lymphocytes # (Manual) Monocytes # (Manual) PT INR APTT Fibrinogen D-Dimer ABG pH POC ABG pCO2 POC ABG pO2 ABG pO2 78.9 L ABG HCO3 ABG O2 Saturation ABG Base Excess -3.2 L ABG Hemoglobin 7.6 L ABG Oxyhemoglobin Oxyhemoglobin Sodium 148 H Potassium Chloride 114.9 H Carbon Dioxide 19 L BUN 59 H Creatinine Glucose 345 H POC Glucose Lactic Acid Calcium 8.1 L Phosphorus 4.60 H D Magnesium 2.40 H AST ALT Alkaline Phosphatase C-Reactive Protein Total Protein Albumin Triglycerides Ur Specific [place] Urine Creatinine Crossmatch 06/19/21 06/19/21 06/19/21 06:28 11:11 17:20 WBC RBC Hgb Hct MCV MCH RDW Plt Count Lymph % (Auto) [place] % (Auto) Lymph # (Auto) [place] # (Auto) Seg Neutrophils % Seg Neuts % (Manual) Lymphocytes % (Manual) Monocytes % (Manual) Seg Neutrophils # Seg Neutrophils # Man Lymphocytes # (Manual) Monocytes # (Manual) PT 29.7 H INR 2.57 H APTT Fibrinogen D-Dimer ABG pH POC ABG pCO2 POC ABG pO2 ABG pO2 ABG HCO3 ABG O2 Saturation ABG Base Excess ABG Hemoglobin ABG Oxyhemoglobin Oxyhemoglobin Sodium Potassium Chloride Carbon Dioxide BUN Creatinine Glucose POC Glucose 279 H 275 H Lactic Acid Calcium Phosphorus Magnesium AST ALT Alkaline Phosphatase C-Reactive Protein Total Protein Albumin Triglycerides Ur Specific [place] Urine Creatinine Crossmatch 06/19/21 06/19/21 06/19/21 18:30 19:20 23:27 WBC RBC Hgb 8.0 L Hct 25.0 L MCV MCH RDW Plt Count Lymph % (Auto) [place] % (Auto) Lymph # (Auto) [place] # (Auto) Seg Neutrophils % Seg Neuts % (Manual) Lymphocytes % (Manual) Monocytes % (Manual) Seg Neutrophils # Seg Neutrophils # Man Lymphocytes # (Manual) Monocytes # (Manual) PT INR APTT Fibrinogen D-Dimer ABG pH POC ABG pCO2 POC ABG pO2 ABG pO2 ABG HCO3 ABG O2 Saturation ABG Base Excess ABG Hemoglobin ABG Oxyhemoglobin Oxyhemoglobin Sodium Potassium Chloride Carbon Dioxide BUN Creatinine Glucose POC Glucose 279 H 290 H Lactic Acid Calcium Phosphorus Magnesium AST ALT Alkaline Phosphatase C-Reactive Protein Total Protein Albumin Triglycerides Ur Specific [place] Urine Creatinine Crossmatch 06/20/21 06/20/21 06/20/21 00:00 04:33 04:33 WBC 22.3 H RBC 3.31 L Hgb 7.4 L 8.5 L Hct 22.5 L 26.5 L MCV MCH 26 L RDW 21.5 H Plt Count Lymph % (Auto) [place] % (Auto) Lymph # (Auto) [place] # (Auto) Seg Neutrophils % Seg Neuts % (Manual) Lymphocytes % (Manual) Monocytes % (Manual) Seg Neutrophils # Seg Neutrophils # Man Lymphocytes # (Manual) Monocytes # (Manual) PT INR APTT Fibrinogen D-Dimer ABG pH POC ABG pCO2 POC ABG pO2 ABG pO2 ABG HCO3 ABG O2 Saturation ABG Base Excess ABG Hemoglobin ABG Oxyhemoglobin Oxyhemoglobin Sodium 148 H Potassium Chloride 114.2 H Carbon Dioxide BUN 70 H Creatinine 1.4 H Glucose 313 H POC Glucose Lactic Acid Calcium 8.2 L Phosphorus Magnesium 2.50 H AST ALT Alkaline Phosphatase C-Reactive Protein Total Protein Albumin Triglycerides Ur Specific [place] Urine Creatinine Crossmatch 06/20/21 06/20/21 06/20/21 04:33 05:27 11:21 WBC RBC Hgb Hct MCV MCH RDW Plt Count Lymph % (Auto) [place] % (Auto) Lymph # (Auto) [place] # (Auto) Seg Neutrophils % Seg Neuts % (Manual) Lymphocytes % (Manual) Monocytes % (Manual) Seg Neutrophils # Seg Neutrophils # Man Lymphocytes # (Manual) Monocytes # (Manual) PT 18.3 H INR 1.37 H APTT Fibrinogen D-Dimer ABG pH POC ABG pCO2 POC ABG pO2 ABG pO2 ABG HCO3 ABG O2 Saturation ABG Base Excess ABG Hemoglobin ABG Oxyhemoglobin Oxyhemoglobin Sodium Potassium Chloride Carbon Dioxide BUN Creatinine Glucose POC Glucose 288 H 306 H Lactic Acid Calcium Phosphorus Magnesium AST ALT Alkaline Phosphatase C-Reactive Protein Total Protein Albumin Triglycerides Ur Specific [place] Urine Creatinine Crossmatch 06/20/21 06/20/21 06/20/21 12:23 15:56 18:20 WBC RBC Hgb 8.2 L 8.1 L Hct 25.9 L 25.5 L MCV MCH RDW Plt Count Lymph % (Auto) [place] % (Auto) Lymph # (Auto) [place] # (Auto) Seg Neutrophils % Seg Neuts % (Manual) Lymphocytes % (Manual) Monocytes % (Manual) Seg Neutrophils # Seg Neutrophils # Man Lymphocytes # (Manual) Monocytes # (Manual) PT INR APTT Fibrinogen D-Dimer ABG pH POC ABG pCO2 POC ABG pO2 ABG pO2 ABG HCO3 ABG O2 Saturation ABG Base Excess ABG Hemoglobin ABG Oxyhemoglobin Oxyhemoglobin Sodium Potassium Chloride Carbon Dioxide BUN Creatinine Glucose POC Glucose 293 H Lactic Acid Calcium Phosphorus Magnesium AST ALT Alkaline Phosphatase C-Reactive Protein Total Protein Albumin Triglycerides Ur Specific [place] Urine Creatinine Crossmatch 06/20/21 06/21/21 06/21/21 23:11 04:20 04:42 WBC 15.1 H RBC 2.84 L Hgb 7.3 L Hct 23.1 L MCV MCH 26 L RDW 21.5 H Plt Count Lymph % (Auto) 3.5 L [place] % (Auto) 11.7 H Lymph # (Auto) 0.5 L [place] # (Auto) 1.8 H Seg Neutrophils % 84.7 H Seg Neuts % (Manual) Lymphocytes % (Manual) Monocytes % (Manual) Seg Neutrophils # 12.8 H Seg Neutrophils # Man Lymphocytes # (Manual) Monocytes # (Manual) PT INR APTT Fibrinogen D-Dimer ABG pH POC ABG pCO2 POC ABG pO2 ABG pO2 98.5 H ABG HCO3 ABG O2 Saturation ABG Base Excess ABG Hemoglobin 7.2 L ABG Oxyhemoglobin Oxyhemoglobin Sodium Potassium Chloride Carbon Dioxide BUN Creatinine Glucose POC Glucose 206 H Lactic Acid Calcium Phosphorus Magnesium AST ALT Alkaline Phosphatase C-Reactive Protein Total Protein Albumin Triglycerides Ur Specific [place] Urine Creatinine Crossmatch 06/21/21 06/21/21 06/21/21 04:42 05:08 11:06 WBC RBC Hgb Hct MCV MCH RDW Plt Count Lymph % (Auto) [place] % (Auto) Lymph # (Auto) [place] # (Auto) Seg Neutrophils % Seg Neuts % (Manual) Lymphocytes % (Manual) Monocytes % (Manual) Seg Neutrophils # Seg Neutrophils # Man Lymphocytes # (Manual) Monocytes # (Manual) PT INR APTT Fibrinogen D-Dimer ABG pH POC ABG pCO2 POC ABG pO2 ABG pO2 ABG HCO3 ABG O2 Saturation ABG Base Excess ABG Hemoglobin ABG Oxyhemoglobin Oxyhemoglobin Sodium 151 H Potassium Chloride 117.2 H Carbon Dioxide 21 L BUN 75 H Creatinine 1.6 H Glucose 216 H POC Glucose 190 H 204 H Lactic Acid Calcium 7.9 L Phosphorus Magnesium 2.60 H AST ALT Alkaline Phosphatase C-Reactive Protein Total Protein Albumin Triglycerides 254 H Ur Specific [place] Urine Creatinine Crossmatch 06/21/21 06/21/21 06/21/21 14:00 16:42 21:52 WBC RBC Hgb 7.1 L 7.2 L Hct 22.0 L 22.1 L MCV MCH RDW Plt Count Lymph % (Auto) [place] % (Auto) Lymph # (Auto) [place] # (Auto) Seg Neutrophils % Seg Neuts % (Manual) Lymphocytes % (Manual) Monocytes % (Manual) Seg Neutrophils # Seg Neutrophils # Man Lymphocytes # (Manual) Monocytes # (Manual) PT INR APTT Fibrinogen D-Dimer ABG pH POC ABG pCO2 POC ABG pO2 ABG pO2 ABG HCO3 ABG O2 Saturation ABG Base Excess ABG Hemoglobin ABG Oxyhemoglobin Oxyhemoglobin Sodium Potassium Chloride Carbon Dioxide BUN Creatinine Glucose POC Glucose 207 H Lactic Acid Calcium Phosphorus Magnesium AST ALT Alkaline Phosphatase C-Reactive Protein Total Protein Albumin Triglycerides Ur Specific [place] Urine Creatinine Crossmatch 06/21/21 06/22/21 06/22/21 23:29 04:30 04:30 WBC 16.8 H RBC 2.93 L Hgb 7.4 L Hct 23.9 L MCV MCH 25 L RDW 21.8 H Plt Count Lymph % (Auto) [place] % (Auto) Lymph # (Auto) [place] # (Auto) Seg Neutrophils % Seg Neuts % (Manual) Lymphocytes % (Manual) Monocytes % (Manual) Seg Neutrophils # Seg Neutrophils # Man Lymphocytes # (Manual) Monocytes # (Manual) PT INR APTT Fibrinogen D-Dimer ABG pH POC ABG pCO2 POC ABG pO2 ABG pO2 ABG HCO3 ABG O2 Saturation ABG Base Excess ABG Hemoglobin ABG Oxyhemoglobin Oxyhemoglobin Sodium 151 H Potassium Chloride 118.7 H Carbon Dioxide BUN 57 H Creatinine Glucose 238 H POC Glucose 273 H Lactic Acid Calcium 8.0 L Phosphorus Magnesium 2.70 H AST ALT Alkaline Phosphatase C-Reactive Protein Total Protein Albumin Triglycerides Ur Specific [place] Urine Creatinine Crossmatch 06/22/21 06/22/21 06/22/21 05:17 11:31 14:20 WBC RBC Hgb 7.4 L Hct 22.5 L MCV MCH RDW Plt Count Lymph % (Auto) [place] % (Auto) Lymph # (Auto) [place] # (Auto) Seg Neutrophils % Seg Neuts % (Manual) Lymphocytes % (Manual) Monocytes % (Manual) Seg Neutrophils # Seg Neutrophils # Man Lymphocytes # (Manual) Monocytes # (Manual) PT INR APTT Fibrinogen D-Dimer ABG pH POC ABG pCO2 POC ABG pO2 ABG pO2 ABG HCO3 ABG O2 Saturation ABG Base Excess ABG Hemoglobin ABG Oxyhemoglobin Oxyhemoglobin Sodium Potassium Chloride Carbon Dioxide BUN Creatinine Glucose POC Glucose 214 H 214 H Lactic Acid Calcium Phosphorus Magnesium AST ALT Alkaline Phosphatase C-Reactive Protein Total Protein Albumin Triglycerides Ur Specific [place] Urine Creatinine Crossmatch 06/22/21 06/22/21 06/23/21 17:18 23:47 05:33 WBC RBC Hgb Hct MCV MCH RDW Plt Count Lymph % (Auto) [place] % (Auto) Lymph # (Auto) [place] # (Auto) Seg Neutrophils % Seg Neuts % (Manual) Lymphocytes % (Manual) Monocytes % (Manual) Seg Neutrophils # Seg Neutrophils # Man Lymphocytes # (Manual) Monocytes # (Manual) PT INR APTT Fibrinogen D-Dimer ABG pH POC ABG pCO2 POC ABG pO2 ABG pO2 ABG HCO3 ABG O2 Saturation ABG Base Excess ABG Hemoglobin ABG Oxyhemoglobin Oxyhemoglobin Sodium Potassium Chloride Carbon Dioxide BUN Creatinine Glucose POC Glucose 238 H 227 H 202 H Lactic Acid Calcium Phosphorus Magnesium AST ALT Alkaline Phosphatase C-Reactive Protein Total Protein Albumin Triglycerides Ur Specific [place] Urine Creatinine Crossmatch 06/23/21 06/23/21 06/23/21 10:04 10:04 11:06 WBC 20.3 H RBC 2.71 L Hgb 7.3 L Hct 21.8 L MCV MCH 27 L RDW 22.1 H Plt Count Lymph % (Auto) [place] % (Auto) Lymph # (Auto) [place] # (Auto) Seg Neutrophils % Seg Neuts % (Manual) Lymphocytes % (Manual) Monocytes % (Manual) Seg Neutrophils # Seg Neutrophils # Man Lymphocytes # (Manual) Monocytes # (Manual) PT INR APTT Fibrinogen D-Dimer ABG pH POC ABG pCO2 POC ABG pO2 ABG pO2 ABG HCO3 ABG O2 Saturation ABG Base Excess ABG Hemoglobin ABG Oxyhemoglobin Oxyhemoglobin Sodium 151 H Potassium 3.2 L Chloride 116.9 H Carbon Dioxide BUN 40 H Creatinine Glucose 208 H POC Glucose 204 H Lactic Acid Calcium 8.0 L Phosphorus 1.80 L D Magnesium AST ALT Alkaline Phosphatase C-Reactive Protein Total Protein Albumin Triglycerides Ur Specific [place] Urine Creatinine Crossmatch 06/23/21 06/23/21 06/24/21 16:11 23:47 04:00 WBC 16.9 H RBC 2.49 L Hgb 6.6 L Hct 20.3 L MCV MCH 26 L RDW 22.6 H Plt Count Lymph % (Auto) [place] % (Auto) Lymph # (Auto) [place] # (Auto) Seg Neutrophils % Seg Neuts % (Manual) Lymphocytes % (Manual) Monocytes % (Manual) Seg Neutrophils # Seg Neutrophils # Man Lymphocytes # (Manual) Monocytes # (Manual) PT INR APTT Fibrinogen D-Dimer ABG pH POC ABG pCO2 POC ABG pO2 ABG pO2 ABG HCO3 ABG O2 Saturation ABG Base Excess ABG Hemoglobin ABG Oxyhemoglobin Oxyhemoglobin Sodium Potassium Chloride Carbon Dioxide BUN Creatinine Glucose POC Glucose 228 H 189 H Lactic Acid Calcium Phosphorus Magnesium AST ALT Alkaline Phosphatase C-Reactive Protein Total Protein Albumin Triglycerides Ur Specific [place] Urine Creatinine Crossmatch 06/24/21 06/24/21 06/24/21 04:00 05:43 06:40 WBC RBC Hgb Hct MCV MCH RDW Plt Count Lymph % (Auto) [place] % (Auto) Lymph # (Auto) [place] # (Auto) Seg Neutrophils % Seg Neuts % (Manual) Lymphocytes % (Manual) Monocytes % (Manual) Seg Neutrophils # Seg Neutrophils # Man Lymphocytes # (Manual) Monocytes # (Manual) PT INR APTT Fibrinogen D-Dimer ABG pH POC ABG pCO2 POC ABG pO2 ABG pO2 ABG HCO3 ABG O2 Saturation ABG Base Excess ABG Hemoglobin ABG Oxyhemoglobin Oxyhemoglobin Sodium 148 H Potassium 3.2 L Chloride 115.6 H Carbon Dioxide BUN 35 H Creatinine Glucose 153 H POC Glucose 134 H Lactic Acid Calcium 7.9 L Phosphorus 2.40 L D Magnesium AST ALT Alkaline Phosphatase C-Reactive Protein Total Protein Albumin Triglycerides Ur Specific [place] Urine Creatinine Crossmatch See Detail 06/24/21 06/24/21 06/24/21 11:08 16:47 21:49 WBC RBC Hgb Hct MCV MCH RDW Plt Count Lymph % (Auto) [place] % (Auto) Lymph # (Auto) [place] # (Auto) Seg Neutrophils % Seg Neuts % (Manual) Lymphocytes % (Manual) Monocytes % (Manual) Seg Neutrophils # Seg Neutrophils # Man Lymphocytes # (Manual) Monocytes # (Manual) PT INR APTT Fibrinogen D-Dimer ABG pH POC ABG pCO2 POC ABG pO2 ABG pO2 ABG HCO3 ABG O2 Saturation ABG Base Excess ABG Hemoglobin ABG Oxyhemoglobin Oxyhemoglobin Sodium Potassium Chloride Carbon Dioxide BUN Creatinine Glucose POC Glucose 153 H 201 H 132 H Lactic Acid Calcium Phosphorus Magnesium AST ALT Alkaline Phosphatase C-Reactive Protein Total Protein Albumin Triglycerides Ur Specific [place] Urine Creatinine Crossmatch 06/24/21 06/25/21 06/25/21 23:24 05:30 09:00 WBC RBC Hgb 8.3 L Hct 27.0 L MCV MCH RDW Plt Count Lymph % (Auto) [place] % (Auto) Lymph # (Auto) [place] # (Auto) Seg Neutrophils % Seg Neuts % (Manual) Lymphocytes % (Manual) Monocytes % (Manual) Seg Neutrophils # Seg Neutrophils # Man Lymphocytes # (Manual) Monocytes # (Manual) PT INR APTT Fibrinogen D-Dimer ABG pH POC ABG pCO2 POC ABG pO2 ABG pO2 ABG HCO3 ABG O2 Saturation ABG Base Excess ABG Hemoglobin ABG Oxyhemoglobin Oxyhemoglobin Sodium Potassium Chloride Carbon Dioxide BUN Creatinine Glucose POC Glucose 170 H 151 H Lactic Acid Calcium Phosphorus Magnesium AST ALT Alkaline Phosphatase C-Reactive Protein Total Protein Albumin Triglycerides Ur Specific [place] Urine Creatinine Crossmatch 06/25/21 06/25/21 06/25/21 11:29 14:24 16:48 WBC RBC Hgb 8.5 L Hct 27.5 L MCV MCH RDW Plt Count Lymph % (Auto) [place] % (Auto) Lymph # (Auto) [place] # (Auto) Seg Neutrophils % Seg Neuts % (Manual) Lymphocytes % (Manual) Monocytes % (Manual) Seg Neutrophils # Seg Neutrophils # Man Lymphocytes # (Manual) Monocytes # (Manual) PT INR APTT Fibrinogen D-Dimer ABG pH POC ABG pCO2 POC ABG pO2 ABG pO2 ABG HCO3 ABG O2 Saturation ABG Base Excess ABG Hemoglobin ABG Oxyhemoglobin Oxyhemoglobin Sodium Potassium Chloride Carbon Dioxide BUN Creatinine Glucose POC Glucose 189 H 224 H Lactic Acid Calcium Phosphorus Magnesium AST ALT Alkaline Phosphatase C-Reactive Protein Total Protein Albumin Triglycerides Ur Specific [place] Urine Creatinine Crossmatch 06/25/21 06/25/21 06/25/21 23:39 Unknown Unknown WBC 16.5 H RBC 2.90 L Hgb 8.0 L Hct 23.8 L MCV MCH RDW 22.8 H Plt Count Lymph % (Auto) [place] % (Auto) Lymph # (Auto) [place] # (Auto) Seg Neutrophils % Seg Neuts % (Manual) Lymphocytes % (Manual) Monocytes % (Manual) Seg Neutrophils # Seg Neutrophils # Man Lymphocytes # (Manual) Monocytes # (Manual) PT INR APTT Fibrinogen D-Dimer ABG pH POC ABG pCO2 POC ABG pO2 ABG pO2 ABG HCO3 ABG O2 Saturation ABG Base Excess ABG Hemoglobin ABG Oxyhemoglobin Oxyhemoglobin Sodium 149 H Potassium Chloride 115.6 H Carbon Dioxide BUN 28 H Creatinine Glucose 157 H POC Glucose 187 H Lactic Acid Calcium 8.0 L Phosphorus Magnesium AST ALT Alkaline Phosphatase C-Reactive Protein Total Protein Albumin Triglycerides Ur Specific [place] Urine Creatinine Crossmatch 06/26/21 06/26/21 06/26/21 05:22 05:29 05:29 WBC 16.2 H RBC 3.03 L Hgb 8.0 L Hct 25.1 L MCV MCH 26 L RDW 23.2 H Plt Count Lymph % (Auto) [place] % (Auto) Lymph # (Auto) [place] # (Auto) Seg Neutrophils % Seg Neuts % (Manual) Lymphocytes % (Manual) Monocytes % (Manual) Seg Neutrophils # Seg Neutrophils # Man Lymphocytes # (Manual) Monocytes # (Manual) PT INR APTT Fibrinogen D-Dimer ABG pH POC ABG pCO2 POC ABG pO2 ABG pO2 ABG HCO3 ABG O2 Saturation ABG Base Excess ABG Hemoglobin ABG Oxyhemoglobin Oxyhemoglobin Sodium 150 H Potassium Chloride 114.8 H Carbon Dioxide BUN 29 H Creatinine Glucose 229 H POC Glucose 211 H Lactic Acid Calcium 8.2 L Phosphorus Magnesium AST ALT Alkaline Phosphatase C-Reactive Protein Total Protein Albumin Triglycerides Ur Specific [place] Urine Creatinine Crossmatch 06/26/21 06/26/21 06/26/21 11:05 15:59 22:00 WBC RBC Hgb Hct MCV MCH RDW Plt Count Lymph % (Auto) [place] % (Auto) Lymph # (Auto) [place] # (Auto) Seg Neutrophils % Seg Neuts % (Manual) Lymphocytes % (Manual) Monocytes % (Manual) Seg Neutrophils # Seg Neutrophils # Man Lymphocytes # (Manual) Monocytes # (Manual) PT INR APTT Fibrinogen D-Dimer ABG pH POC ABG pCO2 POC ABG pO2 ABG pO2 ABG HCO3 ABG O2 Saturation ABG Base Excess ABG Hemoglobin ABG Oxyhemoglobin Oxyhemoglobin Sodium Potassium Chloride Carbon Dioxide BUN Creatinine Glucose POC Glucose 213 H 222 H 161 H Lactic Acid Calcium Phosphorus Magnesium AST ALT Alkaline Phosphatase C-Reactive Protein Total Protein Albumin Triglycerides Ur Specific [place] Urine Creatinine Crossmatch 06/26/21 06/27/21 06/27/21 23:24 04:15 04:15 WBC 14.3 H RBC 2.96 L Hgb 8.1 L Hct 24.6 L MCV MCH 27 L RDW 23.0 H Plt Count Lymph % (Auto) Haines % (Auto) Lymph # (Auto) Haines # (Auto) Seg Neutrophils % Seg Neuts % (Manual) Lymphocytes % (Manual) Monocytes % (Manual) Seg Neutrophils # Seg Neutrophils # Man Lymphocytes # (Manual) Monocytes # (Manual) PT INR APTT Fibrinogen D-Dimer ABG pH POC ABG pCO2 POC ABG pO2 ABG pO2 ABG HCO3 ABG O2 Saturation ABG Base Excess ABG Hemoglobin ABG Oxyhemoglobin Oxyhemoglobin Sodium 150 H Potassium Chloride 113.8 H Carbon Dioxide BUN 26 H Creatinine Glucose 246 H POC Glucose 164 H Lactic Acid Calcium 7.8 L Phosphorus Magnesium AST ALT Alkaline Phosphatase C-Reactive Protein Total Protein Albumin Triglycerides Ur Specific [place] Urine Creatinine Crossmatch 06/27/21 06/27/21 06/27/21 05:44 11:07 16:06 WBC RBC Hgb Hct MCV MCH RDW Plt Count Lymph % (Auto) Haines % (Auto) Lymph # (Auto) Haines # (Auto) Seg Neutrophils % Seg Neuts % (Manual) Lymphocytes % (Manual) Monocytes % (Manual) Seg Neutrophils # Seg Neutrophils # Man Lymphocytes # (Manual) Monocytes # (Manual) PT INR APTT Fibrinogen D-Dimer ABG pH POC ABG pCO2 POC ABG pO2 ABG pO2 ABG HCO3 ABG O2 Saturation ABG Base Excess ABG Hemoglobin ABG Oxyhemoglobin Oxyhemoglobin Sodium Potassium Chloride Carbon Dioxide BUN Creatinine Glucose POC Glucose 226 H 204 H 224 H Lactic Acid Calcium Phosphorus Magnesium AST ALT Alkaline Phosphatase C-Reactive Protein Total Protein Albumin Triglycerides Ur Specific [place] Urine Creatinine Crossmatch 06/27/21 06/28/21 06/28/21 23:49 04:00 04:00 WBC 15.4 H RBC 3.05 L Hgb 8.2 L Hct 25.0 L MCV MCH 27 L RDW 22.6 H Plt Count Lymph % (Auto) [place]aines % (Auto) Lymph # (Auto) Haines # (Auto) Seg Neutrophils % Seg Neuts % (Manual) Lymphocytes % (Manual) Monocytes % (Manual) Seg Neutrophils # Seg Neutrophils # Man Lymphocytes # (Manual) Monocytes # (Manual) PT INR APTT Fibrinogen D-Dimer ABG pH POC ABG pCO2 POC ABG pO2 ABG pO2 ABG HCO3 ABG O2 Saturation ABG Base Excess ABG Hemoglobin ABG Oxyhemoglobin Oxyhemoglobin Sodium 152 H Potassium 3.0 L Chloride 114.9 H Carbon Dioxide BUN 24 H Creatinine Glucose 158 H POC Glucose 195 H Lactic Acid Calcium 8.1 L Phosphorus Magnesium AST ALT Alkaline Phosphatase C-Reactive Protein Total Protein Albumin Triglycerides Ur Specific [place] Urine Creatinine Crossmatch 06/28/21 06/28/21 06/28/21 05:05 11:47 17:21 WBC RBC Hgb Hct MCV MCH RDW Plt Count Lymph % (Auto) Haines % (Auto) Lymph # (Auto) [place]aines # (Auto) Seg Neutrophils % Seg Neuts % (Manual) Lymphocytes % (Manual) Monocytes % (Manual) Seg Neutrophils # Seg Neutrophils # Man Lymphocytes # (Manual) Monocytes # (Manual) PT INR APTT Fibrinogen D-Dimer ABG pH POC ABG pCO2 POC ABG pO2 ABG pO2 ABG HCO3 ABG O2 Saturation ABG Base Excess ABG Hemoglobin ABG Oxyhemoglobin Oxyhemoglobin Sodium Potassium Chloride Carbon Dioxide BUN Creatinine Glucose POC Glucose 121 H 164 H 166 H Lactic Acid Calcium Phosphorus Magnesium AST ALT Alkaline Phosphatase C-Reactive Protein Total Protein Albumin Triglycerides Ur Specific [place] Urine Creatinine Crossmatch 06/28/21 06/28/21 06/29/21 18:14 21:54 00:55 WBC RBC Hgb Hct MCV MCH RDW Plt Count Lymph % (Auto) [place]aines % (Auto) Lymph # (Auto) [place]aines # (Auto) Seg Neutrophils % Seg Neuts % (Manual) Lymphocytes % (Manual) Monocytes % (Manual) Seg Neutrophils # Seg Neutrophils # Man Lymphocytes # (Manual) Monocytes # (Manual) PT INR APTT Fibrinogen D-Dimer ABG pH POC ABG pCO2 POC ABG pO2 ABG pO2 ABG HCO3 ABG O2 Saturation ABG Base Excess ABG Hemoglobin ABG Oxyhemoglobin Oxyhemoglobin Sodium Potassium Chloride Carbon Dioxide BUN Creatinine Glucose POC Glucose 150 H 148 H 176 H Lactic Acid Calcium Phosphorus Magnesium AST ALT Alkaline Phosphatase C-Reactive Protein Total Protein Albumin Triglycerides Ur Specific [place] Urine Creatinine Crossmatch 06/29/21 06/29/21 06/29/21 04:00 04:00 05:20 WBC 15.3 H RBC 3.04 L Hgb 8.0 L Hct 25.0 L MCV MCH 26 L RDW 22.3 H Plt Count Lymph % (Auto) [place] % (Auto) Lymph # (Auto) [place] # (Auto) Seg Neutrophils % Seg Neuts % (Manual) Lymphocytes % (Manual) Monocytes % (Manual) Seg Neutrophils # Seg Neutrophils # Man Lymphocytes # (Manual) Monocytes # (Manual) PT INR APTT Fibrinogen D-Dimer ABG pH POC ABG pCO2 POC ABG pO2 ABG pO2 ABG HCO3 ABG O2 Saturation ABG Base Excess ABG Hemoglobin ABG Oxyhemoglobin Oxyhemoglobin Sodium Potassium 3.1 L Chloride 108.7 H Carbon Dioxide BUN 20 H Creatinine Glucose 194 H POC Glucose 185 H Lactic Acid Calcium 8.0 L Phosphorus Magnesium AST ALT Alkaline Phosphatase C-Reactive Protein Total Protein Albumin Triglycerides Ur Specific [place] Urine Creatinine Crossmatch
--- NOTE | 2021-06-29 11:11 | XRay Report ---
CHEST 1 VIEW 06/29/2021 10:48 AM INDICATION / CLINICAL INFORMATION: Chest tube removal. COMPARISON: 06/29/2021 FINDINGS: SUPPORT DEVICES: Interval removal of right chest tube. Stable tracheostomy tube. HEART / MEDIASTINUM: Stable. LUNGS / PLEURA: Redemonstrated patchy airspace opacities. No pneumothorax. ADDITIONAL FINDINGS: Redemonstrated subcutaneous emphysema. IMPRESSION: 1. Interval removal of right chest tube. No pneumothorax. Signer Name: Thomas Nicole DO Signed: 06/29/2021 11:06 AM Workstation Name: [id number]
--- NOTE | 2021-06-29 13:05 | Progress Note ---
<JORGEKITCandelaria - Last Filed: 06/29/21 13:00> Assessment and Plan Assessment and plan: This is a 76-year-old female with HTN, Coumadin use, dental caries, PVD s/p stenting to right leg, DM, arthritis, depression, gout and ? Pulmonary hypertension admitted with Jeremiah's angina s/p emergent cric with bleeding, right sided pneumothorax, supratherapeutic INR, hypernatremia, hyperchloremia, severe metabolic acidosis, hyperglycemia and hypocalcemia Neuro: Sedated, h/o depression, arthritis -prn fent pushes -Avoid delirium -Reorientation as needed -Maintain sleep-wake cycle -PT consulted; recommends LTAC Cardiac: S/p cardiac arrest, h/o htn, PVD s/p stenting Right leg -06/14 cardiac arrest with ROSC -S/p vasopressor support with Levophed and Fabian-Synephrine -Blood pressure monitoring per protocol -Antihypertensive regimen: Hydralazine 100 mg every 8 -06/13 Echocardiogram EF 65-70% Respiratory: Acute hypoxic respiratory failure, right pneumothorax -CCM consulted, appreciate recommendations -S/p emergent cricothyroidectomy with surgery with 8.00 ETT -s/p trach 06/19 with surgery (#[address]) -T-piece trials started 06/26 -A.m. CXR noted -Right chest tube replaced by surgery -CT to water seal 06/27 -Changed to larger bore on 06/13 -removed today 06/29 -Postop CXR shows possible hydropneumothorax on right side -06/13 bronchoscopy showed possible blood clot in left lung which may be acting as mucous plug however it was left in place due to possible bleeding inside lung if removed. -CXR post cardiac arrest shows clearance of mucous plug -06/16 CT chest shows moderate right pneumothorax with collapse of right upper lobe, right thoracostomy tube terminates at the collapsed right upper lobe, bilateral bronchus opacities compatible with infectious/inflammatory etiology, bilateral small pleural effusion, extensive subcutaneous air, small fluid collection in the anterior mediastinum is nonspecific -VAP bundle -SPO2 monitoring GI: Protein calorie malnutrition -24 hours +1475 mL -CT 200 mL -PPI -BR: senna, colace -s/p TPN -Nutrition consult for tube feeding -S/p PEG : Acute kidney injury possibly secondary to vasomotor nephropathy, metabolic acidosis, hypokalemia, hypernatremia (resolved) , hyperchloremia -Strict intake and output -Renally dose medications -Avoid nephrotoxic medications -Daily weights -Consider nephrology consult if worsens -S/p 7 L LR bolus -FeNa 0.067 -Replete potassium -Free water flush decreased ID: 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 dental caries -CT neck with contrast showed a significant right floor of mild swelling with extension into the submandibular and submental spaces, significant thickening and inflammation involving the right pharyngeal wall, with the parapharyngeal and retropharyngeal spaces at the level of the thyroid cartilage, epiglottis significantly swollen and so are the aryepiglottic folds resulting in significant airway narrowing at this level, no lymphadenopathy, symmetric submandibular and parathyroid glands, S few scattered caries but no periapical lucencies, nonspecific calcification along the right lateral oropharynx, no definite stone seen within the territory of the submandibular gland ducts, no suspicious rashes lesion -Infectious disease and general surgery consulted, appreciate recommendations -s/p cricothyroidectomy -Will follow surgery to direction and treatment of injury -Per surgery may have mucosal injury -Intra-Op findings include post pharyngeal swelling and bruising -Solu-Medrol 125 every 8 -tapering -Per ID: if leucocytosis persists after being off steroids, obtain CT neck with IV contrast to rule out any abscess -Antibiotic therapy Zosyn -COVID-19 PCR negative -f/u blood culture -Monitor WBC and temperature curve -s/p 5L normal saline bolus in ED, 7 L LR bolus in ICU Heme: Coagulopathy, supratherapeutic INR, acute blood loss anemia, possible component of hemorrhagic shock, leukocytosis -Patient is on Coumadin at home -S/p 5 FFP, 8 PRBC, vitamin K x3 -Trend CBC -Presented with H/H of 10.3/34.6 and decreased to 6.7/22.4 -INR 8.18-> 4.55-> 2.1-> 1.23-> 1.16-> 1.31 -Monitor INR -Transfuse hemoglobin less than 7 -Serial H&H -Monitor for signs of bleeding -SCDs to BLE while in bed -Avoid chemical anticoagulation in setting of recent blood loss anemia Endo: Hyperglycemia, h/o DM, gout -S/p Lantus 25 units x 1 -Lantus subcu, titrate as needed -Lispro TID -Avoid hypoglycemia -SSI -Accu-Cheks q. 6hr The high probability of a clinically significant, sudden or life threatening deterioration of the [multi] system(s) required my full and direct attention, intervention and personal management. The aggregate critical care time was [60] minutes. This time is in addition to time spent performing reported procedures but includes the following: [x] Data Review and interpretation [x] Patient assessment and monitoring of vital signs [x] Documentation [x] Medication orders and management Disposition Plan: icu Total Time Spent with Patient (Minutes): 60 History Interval history: This is a 76-year-old female with HTN, Coumadin use , dental caries, PVD s/p stenting right leg, DM, arthritis, depression, gout, and ? Pulmonary hypertension who presented to emergency department on 06/11 with complaints of pain to mandible area and throat and swelling. Work-up in the emergency department included CT scan of the head and neck which showed findings consi stent with Jeremiah's angina and anesthesia was called for intubation. Anesthesia intubation attempts were unsuccessful and surgery was consulted for cricothyroidotomy which was unsuccessful in the emergency department and patient was taken to the OR for tracheostomy. Intubation procedure was complicated by development of pneumothorax and excessive bleeding. Patient given multiple FFP's and vitamin K several times who attempts to decrease INR. Lab work showed leukocytosis, supratherapeutic INR, hypernatremia, hyperchloremia, severe metabolic acidosis, hyperglycemia, hypocalcemia. Patient was admitted to the hospitalist service with consults to [facility], general surgery, infectious disease. Hospital course to date: 06/12: Patient received additional 2 units FFP and 1 unit PRBC and vitamin K today . Overnight critical care placed a femoral CVL. Patient sedated on fentanyl, propofol and Versed. Currently on Fabian-Synephrine and Levophed for blood pressure maintenance. Remains amatory support. Infectious disease consulted. Started on sliding scale insulin and recultured. COVID-19 PCR pending. Surgery at bedside to place chest tube. 06/13: Patient was taken back to the OR today for exchange cricothyroid to possible tracheostomy. Patient returned with ETT. Chest tube was changed to larger size in the OR. Patient was hypotensive, tachycardic, hypoxic in the OR and received hespan, albumin and an A-line. Upon arrival patient was increased to max dose Levophed for hypotension which has resolved. Titrating vasopressors as tolerated. Remains on sedation with 3 agents. Apparently patient was not ventilating her left lung Intra-Op. Noted to have subcu hematoma and trauma to postpharyngeal area. Questionable decrease cardiac wall motion noted in OR-> will order echocardiogram to further investigate. Patient received additional PRBC today. DIC panel resulted as normal. Patient BUN/creatinine did increase as well as noted to have lactic acidosis. May need IV bolus in addition to pressor use. Likely bronc with Pulmicort today as repeat CXR showed right possible pneumo hydrothorax 06/14: Antibiotics changed to Zosyn per ID, surgical packing removed from neck and makeshift [place] drain placed by surgery and old chronic thyroidectomy site. CXR was completed and RN heard gurgling and blood was noted on dressing. ST elevation noted on bedside monitor and patient was hypoxic. FiO2 increased to 100%. However shortly after patient lost her pulse and ACLS was initiated. Patient received 3 rounds of epinephrine and ROSC was achieved. Stat portable CXR showed resolution of lower lobe collapse on the left and stable right-sided chest tube with hemothorax. CCM updated family. Patient H/H noted to be 7.2/23.2 and did RN to transfuse prepared PRBC which [facility] blood bank. Bedside echo completed. 06/15: Off sedation, intermittently follows commands, remains on the prednisone. Surgery will reassess airway on Thursday to see if any further support is required. Urine studies indicate prerenal, given IV bolus and started on Clinimix today. 06/16: Patient restarted on fentanyl drip due to hypertension. Given more LR due to CR improvement post LR yesterday. Patient started on Lantus subcu after given one-time dose of Lantus. PICC placed today. Patient had a CT chest today which showed no mediasinusitis but extensive subcutaneous air. 06/17: General Surgery recommended transferring patient to a ENT specialized facility. Placed a call to [facility], spoke with the substation supervisor, Dr. Duckworth, who stated that a transfer is possible as long their ENT team accept the patient. Awaiting on a final response. Continue current supportive measures. Basal insulin adjusted for hyperglycemia. 06/18: JEREMIAS overnight. Hypertensive this am, PRN Hydralazine for SBP greater than 160. Remains hyperglycemic, patient is on IV steroids and TPN, basal insulin adjusted. Plan for possible transfer to [place] once an ICU bed is available. 06/19: Low SPO2 and hypotension overnight required Levophed for a short time. Overnight CXR noted with no significant changed. Patient is stable this am and off pressors. Plan for possible Trach and PEG today by General Surgery. 06/20: s/p Trach and PEG. Some bleeding overnight s/p X1 dose of Vitamin K. The bleeding resolved this am, H&H remains stable. Attempted a SAT this am, patient went into SVT, HR in the 160-170 which resolved once sedations were resumed. Plan is to continue to sedation for now, attempt to wean off propofol for a RASS goal of 0 to -2. D/C CCM plan is to wean off sedation as tolerated for PST for possible extubation. Okay to use PEGT per Gen. Surgery. Nutrition consulted for TF management, TF to start tonight once current TPN bag is completed. BG remains elevated, continue current SSI and basal for now, will start tapering IV steroids tomorrow. FWF added for hyponatremia. Wean off pressors as tolerated for MAP above 65. Possible transfer to [place] for ENT eval. 06/21: Overnight events and CXR noted. Worsen subcutaneous emphysema and Rt. Pneumo. CT remains in place and intact to cont. wall suction. Patient remains hemodynamically stable, still on low vent setting. will continue to monitor for now. Patient is also tolerating enteral nutrition via PEGT, TPN D/benjamín. H&H is also trending down, no s/s of any active bleeding. Will continue to trend H&H, transfuse if hgb is less than 7. FWF increased for hypernatremia. Still waiting on possible transfer to [place]. 06/22: JEREMIAS overnight. Subcutaneous emphysema is unchanged. CXR with mild improvement. Patient remains hemodynamically stable. Hydralazine added Q8hr for HTN. FWF increased for hypernatremia. Awaiting transfer to [facility] for ENT eval. 06/23: Over 70cc from CT overnight, subcutaneous emphysema with mild improvement. Patient is also tolerating PST this am. Repeat CXR in the am. Patient is still hypertensive, will added norvasc for better control. Continue FWF for hypernatremia and electrolytes replacement as needed, repeat labs in the am. Darin in wbcs this am, patient remains afebrile and on IV Abx, most likely due t o IV steroids continue to monitor. Continue to taper IV steroids. Hyperglycemia is also improving, continue current SSI and basal for now. 06/24: Patient is anemic today and transfused 1 unit PRBC, hypokalemia and hypophosphatemia repleted, will continue every 6 H/H for now to monitor for bleeding, steroid taper continues, still awaiting transfer to [place], PT/OT consulted, CCM to talk to case management regarding LTAC transfer. 06/25: Patient responded appropriately to yesterday, placed on pressure support trial today. Per CCM hopefully T-piece in the next 24 to 48 hours and will continue decrease steroids further on . Lujan catheter removed today. 06/26: Patient started T-piece trials, H/H remained stable. Surgery plans to remove chest tube once weaned off ventilator. Increasing her water flush given hypernatremia. 06/27: Chest tube placed to waterseal, T-piece trial trials ongoing. Remains on Zosyn and steroids being tapered. Increasing free water flush, insulin and ad ded 3 times daily insulin. 06/28: Hypernatremia persists, started on D5W for 1 L, replace potassium. Chest tube remains to waterseal. 06/29: Chest tube removed by surgery today, hyponatremia better and dextrose discontinued, hypokalemia noted which was repleted. Speech did see but patient had decreased voice quality and increased wob so aborted Hospitalist Physical - Constitutional Vitals: Temp Pulse Resp BP Pulse Ox 98 F 112 H 18 138/68 96 06/29/21 09:22 06/29/21 12:00 06/29/21 12:00 06/29/21 12:00 06/29/21 12:00 General appearance: Present: no acute distress, obese - EENT Eyes: Present: PERRL, EOM intact ENT: hearing intact - Neck Neck: Present: normal ROM - Respiratory Respiratory effort: normal Respiratory: bilateral: CTA, diminished - Cardiovascular Rhythm: regular Heart Sounds: Present: S1 & S2. Absent: systolic murmur, diastolic murmur - Extremities Extremities: no ischemia, pulses intact, pulses symmetrical, No edema, normal temperature, normal color, Full ROM Peripheral Pulses: within normal limits - Abdominal General gastrointestinal: soft, non-tender, non-distended, normal bowel sounds - Integumentary Integumentary: Present: warm, dry - Psychiatric Psychiatric: appropriate mood/affect, cooperative - Neurologic Neurologic: CNII-XII intact, no focal deficits, moves all extremities - Allied Health Allied health notes reviewed: nursing, PT, ST, OT, RT, social work HEART Score - HEART Score Troponin: Troponin T < 0.010 ng/mL (0.00-0.029) 06/11/21 23:21 Results - Labs CBC & Chem 7: 06/29/21 04:00 06/29/21 04:00 Labs: Laboratory Last Values WBC 15.3 K/mm3 (4.5-11.0) H 06/29/21 04:00 RBC 3.04 M/mm3 (3.65-5.03) L 06/29/21 04:00 Hgb 8.0 gm/dl (10.1-14.3) L 06/29/21 04:00 Hct 25.0 % (30.3-42.9) L 06/29/21 04:00 MCV 82 fl (79-97) 06/29/21 04:00 MCH 26 pg (28-32) L 06/29/21 04:00 MCHC 32 % (30-34) 06/29/21 04:00 RDW 22.3 % (13.2-15.2) H 06/29/21 04:00 Plt Count 199 K/mm3 (140-440) 06/29/21 04:00 Lymph % (Auto) 3.5 % (13.4-35.0) L 06/21/21 04:42 Roberts % (Auto) 11.7 % (0.0-7.3) H 06/21/21 04:42 Eos % (Auto) 0.0 % (0.0-4.3) 06/21/21 04:42 Baso % (Auto) 0.1 % (0.0-1.8) 06/21/21 04:42 Lymph # (Auto) 0.5 K/mm3 (1.2-5.4) L 06/21/21 04:42 Roberts # (Auto) 1.8 K/mm3 (0.0-0.8) H 06/21/21 04:42 Eos # (Auto) 0.0 K/mm3 (0.0-0.4) 06/21/21 04:42 Baso # (Auto) 0.0 K/mm3 (0.0-0.1) 06/21/21 04:42 Add Manual Diff Complete 06/13/21 Unknown Total Counted 100 06/13/21 Unknown Seg Neutrophils % 84.7 % (40.0-70.0) H 06/21/21 04:42 Seg Neuts % (Manual) 88.0 % (40.0-70.0) H 06/13/21 Unknown Band Neutrophils % 2.0 % 06/13/21 Unknown Lymphocytes % (Manual) 4.0 % (13.4-35.0) L 06/13/21 Unknown Reactive Lymphs % (Man) 0 % 06/13/21 Unknown Monocytes % (Manual) 6.0 % (0.0-7.3) 06/13/21 Unknown Eosinophils % (Manual) 0 % (0.0-4.3) 06/13/21 Unknown Basophils % (Manual) 0 % (0.0-1.8) 06/13/21 Unknown Metamyelocytes % 0 % 06/13/21 Unknown Myelocytes % 0 % 06/13/21 Unknown Promyelocytes % 0 % 06/13/21 Unknown Blast Cells % 0 % 06/13/21 Unknown Nucleated RBC % Not Reportable 06/13/21 Unknown Seg Neutrophils # 12.8 K/mm3 (1.8-7.7) H 06/21/21 04:42 Seg Neutrophils # Man 19.8 K/mm3 (1.8-7.7) H 06/13/21 Unknown Band Neutrophils # 0.5 K/mm3 06/13/21 Unknown Lymphocytes # (Manual) 0.9 K/mm3 (1.2-5.4) L 06/13/21 Unknown Abs React Lymphs (Man) 0.0 K/mm3 06/13/21 Unknown Monocytes # (Manual) 1.4 K/mm3 (0.0-0.8) H 06/13/21 Unknown Eosinophils # (Manual) 0.0 K/mm3 (0.0-0.4) 06/13/21 Unknown Basophils # (Manual) 0.0 K/mm3 (0.0-0.1) 06/13/21 Unknown Metamyelocytes # 0.0 K/mm3 06/13/21 Unknown Myelocytes # 0.0 K/mm3 06/13/21 Unknown Promyelocytes # 0.0 K/mm3 06/13/21 Unknown Blast Cells # 0.0 K/mm3 06/13/21 Unknown WBC Morphology Not Reportable 06/13/21 Unknown Hypersegmented Neuts Not Reportable 06/13/21 Unknown Hyposegmented Neuts Not Reportable 06/13/21 Unknown Hypogranular Neuts Not Reportable 06/13/21 Unknown Smudge Cells Not Reportable 06/13/21 Unknown Toxic Granulation 2+ 06/13/21 Unknown Toxic Vacuolation Not Reportable 06/13/21 Unknown Dohle Bodies Not Reportable 06/13/21 Unknown Pelger-Huet Anomaly Not Reportable 06/13/21 Unknown Dennis Rods Not Reportable 06/13/21 Unknown Platelet Estimate Consistent w auto 06/13/21 Unknown Clumped Platelets Not Reportable 06/13/21 Unknown Plt Clumps, EDTA Not Reportable 06/13/21 Unknown Large Platelets Not Reportable 06/13/21 Unknown Giant Platelets Not Reportable 06/13/21 Unknown Platelet Satelliting Not Reportable 06/13/21 Unknown Plt Morphology Comment Not Reportable 06/13/21 Unknown RBC Morphology Not Reportable 06/13/21 Unknown Dimorphic RBCs Not Reportable 06/13/21 Unknown Polychromasia Few 06/13/21 Unknown Hypochromasia 2+ 06/13/21 Unknown Poikilocytosis Not Reportable 06/13/21 Unknown Anisocytosis 1+ 06/13/21 Unknown Microcytosis Not Reportable 06/13/21 Unknown Macrocytosis Not Reportable 06/13/21 Unknown Spherocytes Not Reportable 06/13/21 Unknown Pappenheimer Bodies Not Reportable 06/13/21 Unknown Sickle Cells Not Reportable 06/13/21 Unknown Target Cells Not Reportable 06/13/21 Unknown Tear Drop Cells Not Reportable 06/13/21 Unknown Ovalocytes Not Reportable 06/13/21 Unknown Stomatocytes Few 06/12/21 01:45 Helmet Cells Not Reportable 06/13/21 Unknown Salamanca-Bergman Bodies Not Reportable 06/13/21 Unknown Coleman Rings Not Reportable 06/13/21 Unknown Nelsy Cells Not Reportable 06/13/21 Unknown Bite Cells Not Reportable 06/13/21 Unknown Crenated Cell Not Reportable 06/13/21 Unknown Elliptocytes Not Reportable 06/13/21 Unknown Acanthocytes (Spur) Not Reportable 06/13/21 Unknown Rouleaux Not Reportable 06/13/21 Unknown Hemoglobin C Crystals Not Reportable 06/13/21 Unknown Schistocytes Not Reportable 06/13/21 Unknown Malaria parasites Not Reportable 06/13/21 Unknown Edin Bodies Not Reportable 06/13/21 Unknown Hem Pathologist Commnt No 06/13/21 Unknown PT 18.3 Sec. (12.2-14.9) H 06/20/21 04:33 INR 1.37 (0.87-1.13) H 06/20/21 04:33 APTT 26.4 Sec. (24.2-36.6) 06/13/21 Unknown Fibrinogen 546 mg/dl (211-480) H 06/13/21 Unknown D-Dimer 1244.63 ng/mlDDU (0-234) H 06/13/21 Unknown ABG pH 7.426 pH Units (7.350-7.450) 06/21/21 04:20 POC ABG pCO2 25.6 mmHg (32.0-48.0) L 06/13/21 04:31 ABG pCO2 35.1 mm Hg 06/21/21 04:20 POC ABG pO2 138.8 mmHg (83-108) H 06/13/21 04:31 ABG pO2 98.5 mm Hg (80.0-90.0) H 06/21/21 04:20 POC ABG HCO3 21.4 06/13/21 04:31 ABG HCO3 22.6 mmol/L (20.0-26.0) 06/21/21 04:20 ABG O2 Saturation 97.7 % (95.0-99.0) 06/21/21 04:20 ABG O2 Content 9.9 (0.0-44) 06/21/21 04:20 POC ABG Base Excess -0.7 06/13/21 04:31 ABG Base Excess -1.6 mmol/L (-2.0-3.0) 06/21/21 04:20 ABG Hemoglobin 7.2 gm/dl (12.0-16.0) L 06/21/21 04:20 ABG Oxyhemoglobin 98.1 (94-98) H 06/13/21 04:31 ABG Carboxyhemoglobin 1.7 % (0.0-5.0) 06/21/21 04:20 ABG Methemoglobin 0.5 % (0.0-1.5) 06/21/21 04:20 Oxyhemoglobin 95.5 % (95.0-99.0) 06/21/21 04:20 Carboxyhemoglobin 0.8 (0.5-1.5) 06/13/21 04:31 FiO2 30 % 06/21/21 04:20 FiO2 % 40.0 06/13/21 04:31 Sodium 145 mmol/L (137-145) 06/29/21 04:00 Potassium 3.1 mmol/L (3.6-5.0) L 06/29/21 04:00 Chloride 108.7 mmol/L (98-107) H 06/29/21 04:00 Carbon Dioxide 24 mmol/L (22-30) 06/29/21 04:00 Anion Gap 15 mmol/L 06/29/21 04:00 BUN 20 mg/dL (7-17) H 06/29/21 04:00 Creatinine 0.8 mg/dL (0.6-1.2) 06/29/21 04:00 Estimated GFR > 60 ml/min 06/29/21 04:00 BUN/Creatinine Ratio 25 % 06/29/21 04:00 Glucose 194 mg/dL (65-100) H 06/29/21 04:00 POC Glucose 135 mg/dL (70-105) H 06/29/21 12:18 Lactic Acid 5.30 mmol/L (0.7-2.0) H* 06/13/21 15:45 Calcium 8.0 mg/dL (8.4-10.2) L 06/29/21 04:00 Phosphorus 2.90 mg/dL (2.5-4.5) 06/27/21 04:15 Magnesium 1.80 mg/dL (1.7-2.3) 06/29/21 04:00 Total Bilirubin 0.40 mg/dL (0.1-1.2) 06/15/21 03:56 AST 64 units/L (5-40) H 06/15/21 03:56 ALT 106 units/L (7-56) H 06/15/21 03:56 Alkaline Phosphatase 55 units/L (35-129) 06/15/21 03:56 Troponin T < 0.010 ng/mL (0.00-0.029) 06/11/21 23:21 C-Reactive Protein 3.30 mg/dL (0.00-1.30) H 06/16/21 04:32 Total Protein 5.1 g/dL (6.3-8.2) L 06/15/21 03:56 Albumin 2.9 g/dL (3.9-5) L 06/15/21 03:56 Albumin/Globulin Ratio 1.3 % 06/15/21 03:56 Triglycerides 254 mg/dL (2-149) H 06/21/21 04:42 Urine Color Yellow (Yellow) 06/12/21 17:00 Urine Turbidity Clear (Clear) 06/12/21 17:00 Urine pH 5.0 (5.0-7.0) 06/12/21 17:00 Ur Specific [place] 1.035 (1.003-1.030) H 06/12/21 17:00 Urine Protein 30 mg/dl mg/dL (Negative) 06/12/21 17:00 Urine Glucose (UA) 50 mg/dL (Negative) 06/12/21 17:00 Urine Ketones Tr mg/dL (Negative) 06/12/21 17:00 Urine Blood Neg (Negative) 06/12/21 17:00 Urine Nitrite Neg (Negative) 06/12/21 17:00 Urine Bilirubin Neg (Negative) 06/12/21 17:00 Urine Urobilinogen < 2.0 mg/dL (<2.0) 06/12/21 17:00 Ur Leukocyte Esterase Neg (Negative) 06/12/21 17:00 Urine WBC (Auto) < 1.0 /HPF (0.0-6.0) 06/12/21 17:00 Urine RBC (Auto) < 1.0 /HPF (0.0-6.0) 06/12/21 17:00 Urine Creatinine 81.1 mg/dL (0.1-20.0) H 06/15/21 10:40 Urine Sodium 42 mmol/L 06/15/21 10:40 Coronavirus (PCR) Negative (Negative) 06/12/21 09:50 Blood Type O POSITIVE 06/24/21 06:40 Antibody Screen Negative 06/24/21 06:40 Crossmatch See Detail 06/24/21 06:40 Lujan/IV: Voiding Method Indwelling Catheter Active Medications - Current Medications Current Medications: Generic Name Dose Route Start Last Admin Trade Name Freq PRN Reason Stop Dose Admin Amlodipine Besylate 5 mg 06/23/21 10:00 06/29/21 09:30 Amlodipine 5 Mg Tab PO 5 mg QDAY JOLENE Administration Lipase/Protease/Amylase 1 each 06/19/21 19:20 Lipase 10,500/Protease 25,000/Amylase 43,750 (Units) Dr Melgar FEEDTUBE PRN PRN For Clogged Feeding Tube Atorvastatin Calcium 20 mg 06/22/21 22:00 06/28/21 21:58 Atorvastatin 20 Mg Tab PO 20 mg QHS JOLENE Administration Docusate Sodium 100 mg 06/20/21 10:00 06/29/21 09:31 Docusate Sodium 100 Mg/10 Ml Oral Liqd PO Not Given BID JOLENE Famotidine 20 mg 06/24/21 22:00 06/29/21 09:30 Famotidine 20 Mg Tab FEEDTUBE 20 mg BID JOLENE Administration Fentanyl 50 mcg 06/24/21 21:50 06/29/21 09:30 Fentanyl 100 Mcg/2 Ml Inj IV 50 mcg Q10MIN PRN Administration ANALGESIA Hydralazine HCl 100 mg 06/22/21 19:00 06/28/21 21:58 Hydralazine 100 Mg Tab FEEDTUBE 100 mg Q8HR JOLENE Administration Hydromorphone HCl 0.5 mg 06/11/21 20:42 06/28/21 14:42 Hydromorphone 1 Mg/1 Ml Inj IV 0.5 mg Q3H PRN Administration Pain , Severe (7-10) NORepinephrine/NS 8 MG-250 ML 8 mg in 250 mls @ 3.75 mls/hr 06/12/21 02:00 06/20/21 12:13 Norepinephrine/Ns 8 Mg-250 Ml (Double Conc) IV 0 mcg/min TITRATE JOLENE 0 mls/hr Titration Protocol 2 MCG/MIN Fentanyl Citrate 2,000 mcg in 100 mls @ 5.466 mls/hr 06/24/21 22:00 06/27/21 03:16 Fentanyl Drip Premix IV 0 mcg/kg/hr TITR JOLENE 0 mls/hr Titration Protocol 1 MCG/KG/HR Piperacillin Sod/Tazobactam Sod 4.5 gm in 100 mls @ 200 mls/hr 06/25/21 12:00 06/29/21 05:32 Zosyn/Ns 4.5gm/100ml IV 200 mls/hr Q6HR JOLENE Administration Protocol Insulin Glargine 30 units 06/27/21 10:00 06/29/21 09:31 Insulin Glargine 100 Units/Ml SUB-Q 30 units BID JOLENE Administration Insulin Human Lispro 0 unit 06/12/21 12:00 06/29/21 12:24 Insulin Lispro 100 Unit/Ml SUB-Q Not Given Q6HR [facility] Protocol Insulin Human Lispro 3 unit 06/26/21 12:00 06/29/21 12:29 Insulin Lispro 100 Unit/Ml SUB-Q 3 unit Q6HR JOLENE Administration Labetalol HCl 10 mg 06/21/21 18:00 06/27/21 00:53 Labetalol 20 Mg/4 Ml Inj IV 10 mg Q4HR PRN Administration Hypertension Metoclopramide HCl 10 mg 06/11/21 20:42 Metoclopramide 10 Mg/2 Ml Inj IV Q6H PRN Nausea And Vomiting Ondansetron HCl 4 mg 06/11/21 20:42 Ondansetron 4 Mg/2 Ml Inj IV Q3H PRN Nausea And Vomiting Potassium Chloride 40 meq 06/29/21 09:00 06/29/21 12:28 Potassium Chloride 20 Meq Packet PO 06/29/21 13:01 40 meq Q4H JOLENE Administration Prednisone 20 mg 06/28/21 10:00 06/29/21 09:29 Prednisone 5 Mg/5 Ml Oral Liquid FEEDTUBE 07/03/21 09:59 20 mg QDAY JOLENE Administration Senna 17.6 mg 06/20/21 10:00 06/29/21 09:31 Sennosides Oral Liqd 8.8 Mg/5 Ml Oral Liqd PO Not Given Q12HR JOLENE Simple Syrup 15 ml 06/19/21 19:20 Simple Syrup 15 Ml FEEDTUBE PRN PRN Hypoglycemia Simple Syrup 30 ml 06/19/21 19:20 Simple Syrup 15 Ml FEEDTUBE PRN PRN Hypoglycemia Sodium Bicarbonate 325 mg 06/19/21 19:20 Sodium Bicarbonate 325 Mg Tab FEEDTUBE PRN PRN For Clogged Feeding Tube Sodium Chloride 10 ml 06/11/21 22:00 06/29/21 09:32 Sodium Chloride 0.9% 10 Ml Flush Syringe IV 10 ml BID JOLENE Administration Sodium Chloride 10 ml 06/11/21 20:42 Sodium Chloride 0.9% 10 Ml Flush Syringe IV PRN PRN LINE FLUSH Nutrition/Malnutrition Assess - Dietary Evaluation Nutrition/Malnutrition Findings: Nutrition Notes Start: 06/16/21 12:10 Freq: Status: Active Protocol: Document 06/27/21 15:42 CANDIDO (Rec: 06/27/21 15:54 CANDIDO [id number]) Nutrition Notes Initial or Follow up Brief Note Current Diet TF-Vital AF 1.2 Quan @ 50 ml/hr (since D 06/21). Height 5 ft 8 in Weight 109.316 kg [place] Body Weight (kg) 63.63 BMI 36.6 Weight change and time frame No body weight change reported in 11 days. Weight Status Obese Subjective/Other Information RD consult for routine F/U on TF tolerance. TF continues as prescribed, with no significant events noted. Pt continues on Mechanical Ventilation through Tracheostomy, well tolerated, according to Progress notes. Pt still waiting for transfer to [place]. Percent of energy/protein needs met: Prescribed Vital AF 1.2 Quan @ 50 ml/hr provides for energy/ protein needs (1,440 Kcal/90 g ) during LOS; 105% Kcal and 71 % AA. #1 Nutrition Diagnosis Inadequate oral intake Diagnosis Progress(for reassessment Continues documentation) Is patient on ventilator? Yes Is Patient Ambulatory and/or Out of Bed No REE-([facility]-confined to bed) 7508.884 Calculation Used for Recommendations 65-70% energy needs Additional Notes Energy needs: 1280-1379kcal/ day Pro needs 2g/kg IBW: 127g/day Fluid needs 1ml/kcal Nutrition Intervention Nutrition Support: Continue Vital AF 1.2 Quan @ 50 ml/hr. Flush: 200 ml water Q 4 hr. When hypernatermia resolved, provide 80 ml water flush Q 4 hr. Kcal 1,440 Protein (gm) 90 Carbohydrates (gm) 133 Fat (gm) 65 Fluid (mL) 973 Fiber (gm) 6 % RDI: 105% Kcal; 71% AA. Goal #1 Provide at least 75% of energy /protein needs through Enteral Feeding during LOS. Goal #2 Maintain body weight within +/ -3% of admission body weight during LOS. Follow-Up By: 07/01/21 Additional Comments Continue monitoring Mechanical Ventilation, Na/Flush, TF tolerance and BM. <MIKE CORTEZ - Last Filed: 06/30/21 07:18> Assessment and Plan Assessment and plan: I saw and evaluated the patient. I agree with the findings and the plan of care as documented in the Nurse Practitioner's~note, with the following corrections and additions. Hospitalist Physical - Constitutional Vitals: Temp Pulse Resp BP Pulse Ox 98.6 F 100 H 21 151/72 100 06/30/21 04:00 06/30/21 06:34 06/30/21 06:30 06/30/21 06:30 06/30/21 06:30 HEART Score - HEART Score Troponin: Troponin T < 0.010 ng/mL (0.00-0.029) 06/11/21 23:21 Results - Labs CBC & Chem 7: 06/29/21 04:00 06/29/21 16:06 Labs: Laboratory Last Values WBC 15.3 K/mm3 (4.5-11.0) H 06/29/21 04:00 RBC 3.04 M/mm3 (3.65-5.03) L 06/29/21 04:00 Hgb 8.0 gm/dl (10.1-14.3) L 06/29/21 04:00 Hct 25.0 % (30.3-42.9) L 06/29/21 04:00 MCV 82 fl (79-97) 06/29/21 04:00 MCH 26 pg (28-32) L 06/29/21 04:00 MCHC 32 % (30-34) 06/29/21 04:00 RDW 22.3 % (13.2-15.2) H 06/29/21 04:00 Plt Count 199 K/mm3 (140-440) 06/29/21 04:00 Lymph % (Auto) 3.5 % (13.4-35.0) L 06/21/21 04:42 Roberts % (Auto) 11.7 % (0.0-7.3) H 06/21/21 04:42 Eos % (Auto) 0.0 % (0.0-4.3) 06/21/21 04:42 Baso % (Auto) 0.1 % (0.0-1.8) 06/21/21 04:42 Lymph # (Auto) 0.5 K/mm3 (1.2-5.4) L 06/21/21 04:42 Roberts # (Auto) 1.8 K/mm3 (0.0-0.8) H 06/21/21 04:42 Eos # (Auto) 0.0 K/mm3 (0.0-0.4) 06/21/21 04:42 Baso # (Auto) 0.0 K/mm3 (0.0-0.1) 06/21/21 04:42 Add Manual Diff Complete 06/13/21 Unknown Total Counted 100 06/13/21 Unknown Seg Neutrophils % 84.7 % (40.0-70.0) H 06/21/21 04:42 Seg Neuts % (Manual) 88.0 % (40.0-70.0) H 06/13/21 Unknown Band Neutrophils % 2.0 % 06/13/21 Unknown Lymphocytes % (Manual) 4.0 % (13.4-35.0) L 06/13/21 Unknown Reactive Lymphs % (Man) 0 % 06/13/21 Unknown Monocytes % (Manual) 6.0 % (0.0-7.3) 06/13/21 Unknown Eosinophils % (Manual) 0 % (0.0-4.3) 06/13/21 Unknown Basophils % (Manual) 0 % (0.0-1.8) 06/13/21 Unknown Metamyelocytes % 0 % 06/13/21 Unknown Myelocytes % 0 % 06/13/21 Unknown Promyelocytes % 0 % 06/13/21 Unknown Blast Cells % 0 % 06/13/21 Unknown Nucleated RBC % Not Reportable 06/13/21 Unknown Seg Neutrophils # 12.8 K/mm3 (1.8-7.7) H 06/21/21 04:42 Seg Neutrophils # Man 19.8 K/mm3 (1.8-7.7) H 06/13/21 Unknown Band Neutrophils # 0.5 K/mm3 06/13/21 Unknown Lymphocytes # (Manual) 0.9 K/mm3 (1.2-5.4) L 06/13/21 Unknown Abs React Lymphs (Man) 0.0 K/mm3 06/13/21 Unknown Monocytes # (Manual) 1.4 K/mm3 (0.0-0.8) H 06/13/21 Unknown Eosinophils # (Manual) 0.0 K/mm3 (0.0-0.4) 06/13/21 Unknown Basophils # (Manual) 0.0 K/mm3 (0.0-0.1) 06/13/21 Unknown Metamyelocytes # 0.0 K/mm3 06/13/21 Unknown Myelocytes # 0.0 K/mm3 06/13/21 Unknown Promyelocytes # 0.0 K/mm3 06/13/21 Unknown Blast Cells # 0.0 K/mm3 06/13/21 Unknown WBC Morphology Not Reportable 06/13/21 Unknown Hypersegmented Neuts Not Reportable 06/13/21 Unknown Hyposegmented Neuts Not Reportable 06/13/21 Unknown Hypogranular Neuts Not Reportable 06/13/21 Unknown Smudge Cells Not Reportable 06/13/21 Unknown Toxic Granulation 2+ 06/13/21 Unknown Toxic Vacuolation Not Reportable 06/13/21 Unknown Dohle Bodies Not Reportable 06/13/21 Unknown Pelger-Huet Anomaly Not Reportable 06/13/21 Unknown Dennis Rods Not Reportable 06/13/21 Unknown Platelet Estimate Consistent w auto 06/13/21 Unknown Clumped Platelets Not Reportable 06/13/21 Unknown Plt Clumps, EDTA Not Reportable 06/13/21 Unknown Large Platelets Not Reportable 06/13/21 Unknown Giant Platelets Not Reportable 06/13/21 Unknown Platelet Satelliting Not Reportable 06/13/21 Unknown Plt Morphology Comment Not Reportable 06/13/21 Unknown RBC Morphology Not Reportable 06/13/21 Unknown Dimorphic RBCs Not Reportable 06/13/21 Unknown Polychromasia Few 06/13/21 Unknown Hypochromasia 2+ 06/13/21 Unknown Poikilocytosis Not Reportable 06/13/21 Unknown Anisocytosis 1+ 06/13/21 Unknown Microcytosis Not Reportable 06/13/21 Unknown Macrocytosis Not Reportable 06/13/21 Unknown Spherocytes Not Reportable 06/13/21 Unknown Pappenheimer Bodies Not Reportable 06/13/21 Unknown Sickle Cells Not Reportable 06/13/21 Unknown Target Cells Not Reportable 06/13/21 Unknown Tear Drop Cells Not Reportable 06/13/21 Unknown Ovalocytes Not Reportable 06/13/21 Unknown Stomatocytes Few 06/12/21 01:45 Helmet Cells Not Reportable 06/13/21 Unknown Salamanca-Bergman Bodies Not Reportable 06/13/21 Unknown Coleman Rings Not Reportable 06/13/21 Unknown Nelsy Cells Not Reportable 06/13/21 Unknown Bite Cells Not Reportable 06/13/21 Unknown Crenated Cell Not Reportable 06/13/21 Unknown Elliptocytes Not Reportable 06/13/21 Unknown Acanthocytes (Spur) Not Reportable 06/13/21 Unknown Rouleaux Not Reportable 06/13/21 Unknown Hemoglobin C Crystals Not Reportable 06/13/21 Unknown Schistocytes Not Reportable 06/13/21 Unknown Malaria parasites Not Reportable 06/13/21 Unknown Edin Bodies Not Reportable 06/13/21 Unknown Hem Pathologist Commnt No 06/13/21 Unknown PT 18.3 Sec. (12.2-14.9) H 06/20/21 04:33 INR 1.37 (0.87-1.13) H 06/20/21 04:33 APTT 26.4 Sec. (24.2-36.6) 06/13/21 Unknown Fibrinogen 546 mg/dl (211-480) H 06/13/21 Unknown D-Dimer 1244.63 ng/mlDDU (0-234) H 06/13/21 Unknown ABG pH 7.426 pH Units (7.350-7.450) 06/21/21 04:20 POC ABG pCO2 25.6 mmHg (32.0-48.0) L 06/13/21 04:31 ABG pCO2 35.1 mm Hg 06/21/21 04:20 POC ABG pO2 138.8 mmHg (83-108) H 06/13/21 04:31 ABG pO2 98.5 mm Hg (80.0-90.0) H 06/21/21 04:20 POC ABG HCO3 21.4 06/13/21 04:31 ABG HCO3 22.6 mmol/L (20.0-26.0) 06/21/21 04:20 ABG O2 Saturation 97.7 % (95.0-99.0) 06/21/21 04:20 ABG O2 Content 9.9 (0.0-44) 06/21/21 04:20 POC ABG Base Excess -0.7 06/13/21 04:31 ABG Base Excess -1.6 mmol/L (-2.0-3.0) 06/21/21 04:20 ABG Hemoglobin 7.2 gm/dl (12.0-16.0) L 06/21/21 04:20 ABG Oxyhemoglobin 98.1 (94-98) H 06/13/21 04:31 ABG Carboxyhemoglobin 1.7 % (0.0-5.0) 06/21/21 04:20 ABG Methemoglobin 0.5 % (0.0-1.5) 06/21/21 04:20 Oxyhemoglobin 95.5 % (95.0-99.0) 06/21/21 04:20 Carboxyhemoglobin 0.8 (0.5-1.5) 06/13/21 04:31 FiO2 30 % 06/21/21 04:20 FiO2 % 40.0 06/13/21 04:31 Sodium 145 mmol/L (137-145) 06/29/21 04:00 Potassium 3.6 mmol/L (3.6-5.0) 06/29/21 16:06 Chloride 108.7 mmol/L (98-107) H 06/29/21 04:00 Carbon Dioxide 24 mmol/L (22-30) 06/29/21 04:00 Anion Gap 15 mmol/L 06/29/21 04:00 BUN 20 mg/dL (7-17) H 06/29/21 04:00 Creatinine 0.8 mg/dL (0.6-1.2) 06/29/21 04:00 Estimated GFR > 60 ml/min 06/29/21 04:00 BUN/Creatinine Ratio 25 % 06/29/21 04:00 Glucose 194 mg/dL (65-100) H 06/29/21 04:00 POC Glucose 104 mg/dL (70-105) 06/30/21 04:20 Lactic Acid 5.30 mmol/L (0.7-2.0) H* 06/13/21 15:45 Calcium 8.0 mg/dL (8.4-10.2) L 06/29/21 04:00 Phosphorus 2.90 mg/dL (2.5-4.5) 06/27/21 04:15 Magnesium 1.80 mg/dL (1.7-2.3) 06/29/21 04:00 Total Bilirubin 0.40 mg/dL (0.1-1.2) 06/15/21 03:56 AST 64 units/L (5-40) H 06/15/21 03:56 ALT 106 units/L (7-56) H 06/15/21 03:56 Alkaline Phosphatase 55 units/L (35-129) 06/15/21 03:56 Troponin T < 0.010 ng/mL (0.00-0.029) 06/11/21 23:21 C-Reactive Protein 3.30 mg/dL (0.00-1.30) H 06/16/21 04:32 Total Protein 5.1 g/dL (6.3-8.2) L 06/15/21 03:56 Albumin 2.9 g/dL (3.9-5) L 06/15/21 03:56 Albumin/Globulin Ratio 1.3 % 06/15/21 03:56 Triglycerides 254 mg/dL (2-149) H 06/21/21 04:42 Urine Color Yellow (Yellow) 06/12/21 17:00 Urine Turbidity Clear (Clear) 06/12/21 17:00 Urine pH 5.0 (5.0-7.0) 06/12/21 17:00 Ur Specific [place] 1.035 (1.003-1.030) H 06/12/21 17:00 Urine Protein 30 mg/dl mg/dL (Negative) 06/12/21 17:00 Urine Glucose (UA) 50 mg/dL (Negative) 06/12/21 17:00 Urine Ketones Tr mg/dL (Negative) 06/12/21 17:00 Urine Blood Neg (Negative) 06/12/21 17:00 Urine Nitrite Neg (Negative) 06/12/21 17:00 Urine Bilirubin Neg (Negative) 06/12/21 17:00 Urine Urobilinogen < 2.0 mg/dL (<2.0) 06/12/21 17:00 Ur Leukocyte Esterase Neg (Negative) 06/12/21 17:00 Urine WBC (Auto) < 1.0 /HPF (0.0-6.0) 06/12/21 17:00 Urine RBC (Auto) < 1.0 /HPF (0.0-6.0) 06/12/21 17:00 Urine Creatinine 81.1 mg/dL (0.1-20.0) H 06/15/21 10:40 Urine Sodium 42 mmol/L 06/15/21 10:40 Coronavirus (PCR) Negative (Negative) 06/12/21 09:50 Blood Type O POSITIVE 06/24/21 06:40 Antibody Screen Negative 06/24/21 06:40 Crossmatch See Detail 06/24/21 06:40 Lujan/IV: Voiding Method Indwelling Catheter Active Medications - Current Medications Current Medications: Generic Name Dose Route Start Last Admin Trade Name Freq PRN Reason Stop Dose Admin Amlodipine Besylate 5 mg 06/23/21 10:00 06/29/21 09:30 Amlodipine 5 Mg Tab PO 5 mg QDAY JOLENE Administration Lipase/Protease/Amylase 1 each 06/19/21 19:20 Lipase 10,500/Protease 25,000/Amylase 43,750 (Units) Dr Melgar FEEDTUBE PRN PRN For Clogged Feeding Tube Atorvastatin Calcium 20 mg 06/22/21 22:00 06/29/21 21:19 Atorvastatin 20 Mg Tab PO 20 mg QHS JOLENE Administration Docusate Sodium 100 mg 06/20/21 10:00 06/29/21 21:19 Docusate Sodium 100 Mg/10 Ml Oral Liqd PO Not Given BID JOLENE Famotidine 20 mg 06/24/21 22:00 06/29/21 21:18 Famotidine 20 Mg Tab FEEDTUBE 20 mg BID JOLENE Administration Hydralazine HCl 100 mg 06/22/21 19:00 06/30/21 05:09 Hydralazine 100 Mg Tab FEEDTUBE 100 mg Q8HR JOLENE Administration Hydromorphone HCl 0.5 mg 06/11/21 20:42 06/28/21 14:42 Hydromorphone 1 Mg/1 Ml Inj IV 0.5 mg Q3H PRN Administration Pain , Severe (7-10) Piperacillin Sod/Tazobactam Sod 4.5 gm in 100 mls @ 200 mls/hr 06/25/21 12:00 06/30/21 05:08 Zosyn/Ns 4.5gm/100ml IV 100 mls/hr Q6HR JOLENE Administration Protocol Insulin Glargine 30 units 06/27/21 10:00 06/29/21 21:18 Insulin Glargine 100 Units/Ml SUB-Q 30 units BID JOLENE Administration Insulin Human Lispro 0 unit 06/12/21 12:00 06/30/21 05:09 Insulin Lispro 100 Unit/Ml SUB-Q Not Given Q6HR [facility] Protocol Insulin Human Lispro 3 unit 06/26/21 12:00 06/30/21 05:10 Insulin Lispro 100 Unit/Ml SUB-Q Not Given Q6HR [facility] Labetalol HCl 10 mg 06/21/21 18:00 06/27/21 00:53 Labetalol 20 Mg/4 Ml Inj IV 10 mg Q4HR PRN Administration Hypertension Metoclopramide HCl 10 mg 06/11/21 20:42 Metoclopramide 10 Mg/2 Ml Inj IV Q6H PRN Nausea And Vomiting Ondansetron HCl 4 mg 06/11/21 20:42 Ondansetron 4 Mg/2 Ml Inj IV Q3H PRN Nausea And Vomiting Prednisone 20 mg 06/28/21 10:00 06/29/21 09:29 Prednisone 5 Mg/5 Ml Oral Liquid FEEDTUBE 07/03/21 09:59 20 mg QDAY JOLENE Administration Senna 17.6 mg 06/20/21 10:00 06/29/21 21:19 Sennosides Oral Liqd 8.8 Mg/5 Ml Oral Liqd PO Not Given Q12HR JOLENE Simple Syrup 15 ml 06/19/21 19:20 Simple Syrup 15 Ml FEEDTUBE PRN PRN Hypoglycemia Simple Syrup 30 ml 06/19/21 19:20 Simple Syrup 15 Ml FEEDTUBE PRN PRN Hypoglycemia Sodium Bicarbonate 325 mg 06/19/21 19:20 Sodium Bicarbonate 325 Mg Tab FEEDTUBE PRN PRN For Clogged Feeding Tube Sodium Chloride 10 ml 06/11/21 22:00 06/29/21 21:19 Sodium Chloride 0.9% 10 Ml Flush Syringe IV 10 ml BID JOLENE Administration Sodium Chloride 10 ml 06/11/21 20:42 Sodium Chloride 0.9% 10 Ml Flush Syringe IV PRN PRN LINE FLUSH Nutrition/Malnutrition Assess - Dietary Evaluation Nutrition/Malnutrition Findings: Nutrition Notes Start: 06/16/21 12:10 Freq: Status: Active Protocol: Document 06/27/21 15:42 CANDIDO (Rec: 06/27/21 15:54 CANDIDO [id number]) Nutrition Notes Initial or Follow up Brief Note Current Diet TF-Vital AF 1.2 Quan @ 50 ml/hr (since D 06/21). Height 5 ft 8 in Weight 109.316 kg [place] Body Weight (kg) 63.63 BMI 36.6 Weight change and time frame No body weight change reported in 11 days. Weight Status Obese Subjective/Other Information RD consult for routine F/U on TF tolerance. TF continues as prescribed, with no significant events noted. Pt continues on Mechanical Ventilation through Tracheostomy, well tolerated, according to Progress notes. Pt still waiting for transfer to [place]. Percent of energy/protein needs met: Prescribed Vital AF 1.2 Quan @ 50 ml/hr provides for energy/ protein needs (1,440 Kcal/90 g ) during LOS; 105% Kcal and 71 % AA. #1 Nutrition Diagnosis Inadequate oral intake Diagnosis Progress(for reassessment Continues documentation) Is patient on ventilator? Yes Is Patient Ambulatory and/or Out of Bed No REE-([facility]-confined to bed) 1854.884 Calculation Used for Recommendations 65-70% energy needs Additional Notes Energy needs: 1280-1379kcal/ day Pro needs 2g/kg IBW: 127g/day Fluid needs 1ml/kcal Nutrition Intervention Nutrition Support: Continue Vital AF 1.2 Quan @ 50 ml/hr. Flush: 200 ml water Q 4 hr. When hypernatermia resolved, provide 80 ml water flush Q 4 hr. Kcal 1,440 Protein (gm) 90 Carbohydrates (gm) 133 Fat (gm) 65 Fluid (mL) 973 Fiber (gm) 6 % RDI: 105% Kcal; 71% AA. Goal #1 Provide at least 75% of energy /protein needs through Enteral Feeding during LOS. Goal #2 Maintain body weight within +/ -3% of admission body weight during LOS. Follow-Up By: 07/01/21 Additional Comments Continue monitoring Mechanical Ventilation, Na/Flush, TF tolerance and BM.
[2021-06-29] MEDS: hydrALAZINE 100 MG TAB FEEDTUBE SCH ×2 (13:06→21:19)
[2021-06-30] MEDS: fentaNYL 100 MCG/2 ML INJ IV PRN (01:20)
[2021-06-30] MEDS: PIPERACIL/TAZOBACTA 4.5/NS 100 4.5 GM/100 ML VIAL IV SCH ×4 (01:27→17:40)
[2021-06-30] MEDS: INSULIN LISPRO 100 UNIT/ML SUB-Q SCH ×7 (01:29→23:35)
--- NOTE | 2021-06-30 03:23 | XRay Report ---
CHEST 1 VIEW INDICATION: removal of chest tube. COMPARISON: One day prior. FINDINGS: Support devices: Unchanged. Heart: Stable. Lungs/Pleura: Bilateral pulmonary opacities have improved. No pneumothorax. Soft tissue gas in the chest wall is again noted. IMPRESSION: 1. Pulmonary opacities have improved. No pneumothorax. Signer Name: Brent Falcon MD Signed: 06/30/2021 3:18 AM Workstation Name: [id number]
[2021-06-30] MEDS: hydrALAZINE 100 MG TAB FEEDTUBE SCH ×3 (05:09→22:47)
--- NOTE | 2021-06-30 07:32 | Progress Note ---
Assessment and Plan Doing well from airway issues. Lack of movement of extremities is of some concern. Consider neurology consult and pt ot for maintenance of rom/ splinting in positions to avoid contractures. Subjective Date of service: 06/30/21 Patient Reports: Positive: no new complaints, feels better Narrative: Nursing reports copious amounts of clear dischare from the tracheostomy. Pt alert but not moving extremities. CXR post removal of chest tube without pnthx. Objective Vital Signs - 12hr 06/29/21 06/29/21 06/29/21 19:30 19:54 20:00 Temperature Pulse Rate 94 H 89 Respiratory 20 22 Rate Respiratory 20 Rate [Bilateral Generalized] Blood Pressure 146/85 142/77 O2 Sat by Pulse 100 99 Oximetry O2 Sat by Pulse Oximetry [ Assessment] 06/29/21 06/29/21 06/29/21 20:02 20:24 20:30 Temperature Pulse Rate 97 H Respiratory 20 21 Rate Respiratory Rate [Bilateral Generalized] Blood Pressure 142/82 O2 Sat by Pulse 100 100 Oximetry O2 Sat by Pulse Oximetry [ Assessment] 06/29/21 06/29/21 06/29/21 20:32 21:00 21:03 Temperature Pulse Rate 85 85 Respiratory 16 20 Rate Respiratory Rate [Bilateral Generalized] Blood Pressure 156/79 O2 Sat by Pulse 99 99 Oximetry O2 Sat by Pulse 97 Oximetry [ Assessment] 06/29/21 06/29/21 06/29/21 21:30 22:00 22:30 Temperature Pulse Rate 94 H 105 H 102 H Respiratory 23 15 19 Rate Respiratory Rate [Bilateral Generalized] Blood Pressure 156/79 143/76 143/76 O2 Sat by Pulse 97 Oximetry O2 Sat by Pulse Oximetry [ Assessment] 06/29/21 06/29/21 06/30/21 23:00 23:30 00:00 Temperature 99 F Pulse Rate 94 H 100 H 90 Respiratory 13 13 20 Rate Respiratory Rate [Bilateral Generalized] Blood Pressure 129/62 129/62 134/64 O2 Sat by Pulse 92 97 91 Oximetry O2 Sat by Pulse Oximetry [ Assessment] 06/30/21 06/30/21 06/30/21 00:04 00:05 00:30 Temperature Pulse Rate 121 H 90 98 H Respiratory 19 20 26 H Rate Respiratory Rate [Bilateral Generalized] Blood Pressure 134/64 134/64 O2 Sat by Pulse 99 99 99 Oximetry O2 Sat by Pulse Oximetry [ Assessment] 06/30/21 06/30/21 06/30/21 01:00 01:20 01:30 Temperature Pulse Rate 108 H 97 H 97 H Respiratory 23 20 24 Rate Respiratory Rate [Bilateral Generalized] Blood Pressure 141/77 141/77 O2 Sat by Pulse 97 99 100 Oximetry O2 Sat by Pulse Oximetry [ Assessment] 06/30/21 06/30/21 06/30/21 02:00 02:20 02:29 Temperature Pulse Rate 97 H 97 H Respiratory 17 20 Rate Respiratory Rate [Bilateral Generalized] Blood Pressure 153/77 O2 Sat by Pulse 99 Oximetry O2 Sat by Pulse Oximetry [ Assessment] 06/30/21 06/30/21 06/30/21 02:30 03:00 03:30 Temperature Pulse Rate 87 109 H 91 H Respiratory 22 22 27 H Rate Respiratory Rate [Bilateral Generalized] Blood Pressure 153/77 150/84 150/84 O2 Sat by Pulse 100 99 100 Oximetry O2 Sat by Pulse Oximetry [ Assessment] 06/30/21 06/30/21 06/30/21 04:00 04:13 04:30 Temperature 98.6 F Pulse Rate 101 H 110 H Respiratory 29 H 17 Rate Respiratory Rate [Bilateral Generalized] Blood Pressure 155/77 155/77 O2 Sat by Pulse 99 100 100 Oximetry O2 Sat by Pulse Oximetry [ Assessment] 06/30/21 06/30/21 06/30/21 05:00 05:30 06:00 Temperature Pulse Rate 105 H 98 H 95 H Respiratory 23 23 21 Rate Respiratory Rate [Bilateral Generalized] Blood Pressure 160/84 160/84 151/72 O2 Sat by Pulse 98 100 98 Oximetry O2 Sat by Pulse Oximetry [ Assessment] 06/30/21 06/30/21 06:30 06:34 Temperature Pulse Rate 102 H 100 H Respiratory 21 Rate Respiratory Rate [Bilateral Generalized] Blood Pressure 151/72 O2 Sat by Pulse 100 Oximetry O2 Sat by Pulse Oximetry [ Assessment] - Neck other (Shiley in place wound healing. ) - Labs 06/29/21 04:00 06/29/21 16:06 Diabetes panel 06/29/21 Range/Units 16:06 Potassium 3.6 (3.6-5.0) mmol/L Pituitary panel 06/29/21 Range/Units 16:06 Potassium 3.6 (3.6-5.0) mmol/L Adrenal panel 06/29/21 Range/Units 16:06 Potassium 3.6 (3.6-5.0) mmol/L
[2021-06-30 09:30] LABS: Hematocrit 26.2 % (30.3-42.9); Hemoglobin 8.2 gm/dl (10.1-14.3); Mean Corpuscular HGB Conc 31 % (30-34); Mean Corpuscular Volume 82 fl (79-97); Platelet Count 187 K/mm3 (140-440); Red Blood Count 3.19 M/mm3 (3.65-5.03)
[2021-06-30] MEDS: amLODIPine 5 MG TAB PO SCH (09:38)
[2021-06-30] MEDS: HYDROmorphone 1 MG/1 ML INJ IV PRN (09:38)
[2021-06-30] MEDS: FAMOTIDINE 20 MG TAB FEEDTUBE SCH ×2 (09:38→22:47)
[2021-06-30] MEDS: predniSONE 5 MG/5 ML ORAL LIQUID FEEDTUBE SCH (09:39)
[2021-06-30] MEDS: SENNOSIDES ORAL LIQD 8.8 MG/5 ML ORAL LIQD PO SCH ×2 (09:39→22:48)
[2021-06-30] MEDS: DOCUSATE SODIUM 100 MG/10 ML ORAL LIQD PO SCH ×2 (09:39→22:47)
[2021-06-30 09:50] LABS: Blood Urea Nitrogen 20 mg/dL (7-17); Calcium 8.3 mg/dL (8.4-10.2); Hemolysis Index 0; Red Cell Distribution Width 22.3 % (13.2-15.2)
[2021-06-30 09:51] LABS: BUN/Creatinine Ratio 29
--- NOTE | 2021-06-30 09:59 | Progress Note ---
<JORGEKIT JosseCandelaria - Last Filed: 06/30/21 10:09> Assessment and Plan Assessment and plan: This is a 76-year-old female with HTN, Coumadin use, dental caries, PVD s/p stenting to right leg, DM, arthritis, depression, gout and ? Pulmonary hypertension admitted with Jeremiah's angina s/p emergent cric with bleeding, right sided pneumothorax, supratherapeutic INR, hypernatremia, hyperchloremia, severe metabolic acidosis, hyperglycemia and hypocalcemia Neuro: Sedated, h/o depression, arthritis -prn fent pushes -Avoid delirium -Reorientation as needed -Maintain sleep-wake cycle -PT consulted; recommends LTAC Cardiac: S/p cardiac arrest, h/o htn, PVD s/p stenting Right leg -06/14 cardiac arrest with ROSC -S/p vasopressor support with Levophed and Fabian-Synephrine -Blood pressure monitoring per protocol -Antihypertensive regimen: Hydralazine 100 mg every 8 -06/13 Echocardiogram EF 65-70% Respiratory: Acute hypoxic respiratory failure, right pneumothorax -CCM consulted, appreciate recommendations -S/p emergent cricothyroidectomy with surgery with 8.00 ETT -s/p trach 06/19 with surgery (#[address]) -T-piece trials started 06/26 -ST: Unable to tolerate [place] valve on 06/28 -A.m. CXR noted -s/p Right chest tube removed 06/29 -06/13 bronchoscopy showed possible blood clot in left lung which may be acting as mucous plug however it was left in place due to possible bleeding inside lung if removed. -CXR post cardiac arrest shows clearance of mucous plug -06/16 CT chest shows moderate right pneumothorax with collapse of right upper lobe, right thoracostomy tube terminates at the collapsed right upper lobe, bilateral bronchus opacities compatible with infectious/inflammatory etiology, bilateral small pleural effusion, extensive subcutaneous air, small fluid collection in the anterior mediastinum is nonspecific -VAP bundle -SPO2 monitoring GI: Protein calorie malnutrition -24 hours +1295 mL -PPI -BR: senna, colace -s/p TPN -Nutrition consult for tube feeding -S/p PEG : Acute kidney injury possibly secondary to vasomotor nephropathy, metabolic acidosis, hypokalemia, metabolic acidosis -Strict intake and output -Renally dose medications -Avoid nephrotoxic medications -Daily weights -Consider nephrology consult if worsens -S/p 7 L LR bolus -FeNa 0.067 -Replete potassium ID: 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 dental caries -CT neck with contrast showed a significant right floor of mild swelling with extension into the submandibular and submental spaces, significant thickening and inflammation involving the right pharyngeal wall, with the parapharyngeal and retropharyngeal spaces at the level of the thyroid cartilage, epiglottis significantly swollen and so are the aryepiglottic folds resulting in significant airway narrowing at this level, no lymphadenopathy, symmetric submandibular and parathyroid glands, S few scattered caries but no periapical lucencies, nonspecific calcification along the right lateral oropharynx, no definite stone seen within the territory of the submandibular gland ducts, no suspicious rashes lesion -Infectious disease and general surgery consulted, appreciate recommendations -s/p cricothyroidectomy -Will follow surgery to direction and treatment of injury -Per surgery may have mucosal injury -Intra-Op findings include post pharyngeal swelling and bruising -Solu-Medrol 125 every 8 -tapering -Per ID: if leucocytosis persists after being off steroids, obtain CT neck with IV contrast to rule out any abscess -Antibiotic therapy Zosyn -COVID-19 PCR negative -f/u blood culture -Monitor WBC and temperature curve -s/p 5L normal saline bolus in ED, 7 L LR bolus in ICU Heme: Coagulopathy, supratherapeutic INR, acute blood loss anemia, possible component of hemorrhagic shock, leukocytosis -Patient is on Coumadin at home -S/p 5 FFP, 8 PRBC, vitamin K x3 -Trend CBC -Presented with H/H of 10.3/34.6 and decreased to 6.7/22.4 -INR 8.18-> 4.55-> 2.1-> 1.23-> 1.16-> 1.31 -Monitor INR -Transfuse hemoglobin less than 7 -Lovenox subq (prophylactic) -Monitor for signs of bleeding -SCDs to BLE while in bed Endo: h/o DM, gout -S/p Lantus 25 units x 1 -Lantus subcu, titrate as needed -Avoid hypoglycemia -SSI -Accu-Cheks q. 6hr The high probability of a clinically significant, sudden or life threatening deterioration of the [multi] system(s) required my full and direct attention, intervention and personal management. The aggregate critical care time was [60] minutes. This time is in addition to time spent performing reported procedures but includes the following: [x] Data Review and interpretation [x] Patient assessment and monitoring of vital signs [x] Documentation [x] Medication orders and management Disposition Plan: icu Total Time Spent with Patient (Minutes): 60 History Interval history: This is a 76-year-old female with HTN, Coumadin use , dental caries, PVD s/p stenting right leg, DM, arthritis, depression, gout, and ? Pulmonary hypertension who presented to emergency department on 06/11 with complaints of pain to mandible area and throat and swelling. Work-up in the emergency department included CT scan of the head and neck which showed findings consistent with Jeremiah's angina and anesthesia was called for intubation. Anesthesia intubation attempts were unsuccessful and surgery was consulted for cricothyroidotomy which was unsuccessful in the emergency department and patient was taken to the OR for tracheostomy. Intubation procedure was complicated by development of pneumothorax and excessive bleeding. Patient given multiple FFP's and vitamin K several times who attempts to decrease INR. Lab work showed leukocytosis, supratherapeutic INR, hypernatremia, hyperchloremia, severe metabolic acidosis, hyperglycemia, hypocalcemia. Patient was admitted to the hospitalist service with consults to [facility], general surgery, infectious disease. Hospital course to date: 06/12: Patient received additional 2 units FFP and 1 unit PRBC and vitamin K today. Overnight critical care placed a femoral CVL. Patient sedated on fentanyl, propofol and Versed. Currently on Fabian-Synephrine and Levophed for blood pressure maintenance. Remains amatory support. Infectious disease consulted. Started on sliding scale insulin and recultured. COVID-19 PCR pending. Surgery at bedside to place chest tube. 06/13: Patient was taken back to the OR today for exchange cricothyroid to possible tracheostomy. Patient returned with ETT. Chest tube was changed to larger size in the OR. Patient was hypotensive, tachycardic, hypoxic in the OR and received hespan, albumin and an A-line. Upon arrival patient was increased to max dose Levophed for hypotension which has resolved. Titrating vasopressors as tolerated. Remains on sedation with 3 agents. Apparently patient was not ventilating her left lung Intra-Op. Noted to have subcu hematoma and trauma to postpharyngeal area. Questionable decrease cardiac wall motion noted in OR-> will order echocardiogram to further investigate. Patient received additional PRBC today. DIC panel resulted as normal. Patient BUN/creatinine did increase as well as noted to have lactic acidosis. May need IV bolus in addition to pressor use. Likely bronc with Pulmicort today as repeat CXR showed right possible pneumo hydrothorax 06/14: Antibiotics changed to Zosyn per ID, surgical packing removed from neck and makeshift Faith drain placed by surgery and old chronic thyroidectomy site. CXR was completed and RN heard gurgling and blood was noted on dressing. ST elevation noted on bedside monitor and patient was hypoxic. FiO2 increased to 100%. However shortly after patient lost her pulse and ACLS was initiated. Patient received 3 rounds of epinephrine and ROSC was achieved. Stat portable CXR showed resolution of lower lobe collapse on the left and stable right-sided chest tube with hemothorax. CCM updated family. Patient H/H noted to be 7.2/23.2 and did RN to transfuse prepared PRBC which [facility] blood bank. Bedside echo completed. 06/15: Off sedation, intermittently follows commands, remains on the prednisone. Surgery will reassess airway on Thursday to see if any further support is required. Urine studies indicate prerenal, given IV bolus and started on Clinimix today. 06/16: Patient restarted on fentanyl drip due to hypertension. Given more LR due to CR improvement post LR yesterday. Patient started on Lantus subcu after given one-time dose of Lantus. PICC placed today. Patient had a CT chest today which showed no mediasinusitis but extensive subcutaneous air. 06/17: General Surgery recommended transferring patient to a ENT specialized [facility]. Placed a call to [facility] transferring [facility], spoke with the armature inspector, Dr. Duckworth, who stated that a transfer is possible as long their ENT team accept the patient. Awaiting on a final response. Continue current supportive measures. Basal insulin adjusted for hyperglycemia. 06/18: JEREMIAS overnight. Hypertensive this am, PRN Hydralazine for SBP greater than 160. Remains hyperglycemic, patient is on IV steroids and TPN, basal insulin adjusted. Plan for possible transfer to [place] once an ICU bed is available. 06/19: Low SPO2 and hypotension overnight required Levophed for a short time. Ov ernight CXR noted with no significant changed. Patient is stable this am and off pressors. Plan for possible Trach and PEG today by General Surgery. 06/20: s/p Trach and PEG. Some bleeding overnight s/p X1 dose of Vitamin K. The bleeding resolved this am, H&H remains stable. Attempted a SAT this am, patient went into SVT, HR in the 160-170 which resolved once sedations were resumed. Plan is to continue to sedation for now, attempt to wean off propofol for a RASS goal of 0 to -2. D/C CCM plan is to wean off sedation as tolerated for PST for possible extubation. Okay to use PEGT per Gen. Surgery. Nutrition consulted for TF management, TF to start tonight once current TPN bag is completed. BG remains elevated, continue current SSI and basal for now, will start tapering IV steroids tomorrow. FWF added for hyponatremia. Wean off pressors as tolerated for MAP above 65. Possible transfer to [place] for ENT eval. 06/21: Overnight events and CXR noted. Worsen subcutaneous emphysema and Rt. Pneumo. CT remains in place and intact to cont. wall suction. Patient remains hemodynamically stable, still on low vent setting. will continue to monitor for now. Patient is also tolerating enteral nutrition via PEGT, TPN D/benjamín. H&H is also trending down, no s/s of any active bleeding. Will continue to trend H&H, transfuse if hgb is less than 7. FWF increased for hypernatremia. Still waiting on possible transfer to [place]. 06/22: JEREMIAS overnight. Subcutaneous emphysema is unchanged. CXR with mild improv ement. Patient remains hemodynamically stable. Hydralazine added Q8hr for HTN. FWF increased for hypernatremia. Awaiting transfer to [place] for ENT eval. 06/23: Over 70cc from CT overnight, subcutaneous emphysema with mild improvement. Patient is also tolerating PST this am. Repeat CXR in the am. Patient is still hypertensive, will added norvasc for better control. Continue FWF for hypernatremia and electrolytes replacement as needed, repeat labs in the am. Darin in wbcs this am, patient remains afebrile and on IV Abx, most likely due to IV steroids continue to monitor. Continue to taper IV steroids. Hyperglycemia is also improving, continue current SSI and basal for now. 06/24: Patient is anemic today and transfused 1 unit PRBC, hypokalemia and hypophosphatemia repleted, will continue every 6 H/H for now to monitor for bleeding, steroid taper continues, still awaiting transfer to [place], PT/OT consulted, [facility] to talk to case management regarding LTAC transfer. 06/25: Patient responded appropriately to yesterday, placed on pressure support trial today. Per CCM hopefully T-piece in the next 24 to 48 hours and will continue decrease steroids further on . Lujan catheter removed today. 06/26: Patient started T-piece trials, H/H remained stable. Surgery plans to remove chest tube once weaned off ventilator. Increasing her water flush given hypernatremia. 06/27: Chest tube placed to waterseal, T-piece trial trials ongoing. Remains on Zosyn and steroids being tapered. Increasing free water flush, insulin and added 3 times daily insulin. 06/28: Hypernatremia persists, started on D5W for 1 L, replace potassium. Chest tube remains to waterseal. 06/29: Chest tube removed by surgery today, hyponatremia better and dextrose discontinued, hypokalemia noted which was repleted. Speech did see but patient had decreased voice quality and increased wob so aborted 06/30: Hypokalemia noted on labs will be repleted, leukocytosis continues to improve. Continues on T-piece trials and is following commands. Hospitalist Physical - Constitutional Vitals: Temp Pulse Resp BP Pulse Ox 99 F 104 H 19 155/86 99 06/30/21 08:00 06/30/21 09:38 06/30/21 08:00 06/30/21 09:38 06/30/21 08:20 General appearance: Present: no acute distress, obese - EENT Eyes: Present: PERRL, EOM intact ENT: hearing intact, clear oral mucosa - Neck Neck: Present: normal ROM - Respiratory Respiratory effort: normal Respiratory: bilateral: diminished - Cardiovascular Rhythm: regular Heart Sounds: Present: S1 & S2. Absent: systolic murmur, diastolic murmur - Extremities Extremities: no ischemia, pulses intact, pulses symmetrical, No edema, normal temperature, normal color Peripheral Pulses: within normal limits - Abdominal General gastrointestinal: soft, non-tender, non-distended, normal bowel sounds - Integumentary Integumentary: Present: warm, dry - Psychiatric Psychiatric: cooperative - Neurologic Neurologic: CNII-XII intact, no focal deficits, moves all extremities - Allied Health Allied health notes reviewed: nursing, RT HEART Score - HEART Score Troponin: Troponin T < 0.010 ng/mL (0.00-0.029) 06/11/21 23:21 Results - Labs CBC & Chem 7: 06/30/21 04:25 06/30/21 04:25 Labs: Laboratory Last Values WBC 13.0 K/mm3 (4.5-11.0) H 06/30/21 04:25 RBC 3.19 M/mm3 (3.65-5.03) L 06/30/21 04:25 Hgb 8.2 gm/dl (10.1-14.3) L 06/30/21 04:25 Hct 26.2 % (30.3-42.9) L 06/30/21 04:25 MCV 82 fl (79-97) 06/30/21 04:25 MCH 26 pg (28-32) L 06/30/21 04:25 MCHC 31 % (30-34) 06/30/21 04:25 RDW 22.3 % (13.2-15.2) H 06/30/21 04:25 Plt Count 187 K/mm3 (140-440) 06/30/21 04:25 Lymph % (Auto) 3.5 % (13.4-35.0) L 06/21/21 04:42 Rowan % (Auto) 11.7 % (0.0-7.3) H 06/21/21 04:42 Eos % (Auto) 0.0 % (0.0-4.3) 06/21/21 04:42 Baso % (Auto) 0.1 % (0.0-1.8) 06/21/21 04:42 Lymph # (Auto) 0.5 K/mm3 (1.2-5.4) L 06/21/21 04:42 Rowan # (Auto) 1.8 K/mm3 (0.0-0.8) H 06/21/21 04:42 Eos # (Auto) 0.0 K/mm3 (0.0-0.4) 06/21/21 04:42 Baso # (Auto) 0.0 K/mm3 (0.0-0.1) 06/21/21 04:42 Add Manual Diff Complete 06/13/21 Unknown Total Counted 100 06/13/21 Unknown Seg Neutrophils % 84.7 % (40.0-70.0) H 06/21/21 04:42 Seg Neuts % (Manual) 88.0 % (40.0-70.0) H 06/13/21 Unknown Band Neutrophils % 2.0 % 06/13/21 Unknown Lymphocytes % (Manual) 4.0 % (13.4-35.0) L 06/13/21 Unknown Reactive Lymphs % (Man) 0 % 06/13/21 Unknown Monocytes % (Manual) 6.0 % (0.0-7.3) 06/13/21 Unknown Eosinophils % (Manual) 0 % (0.0-4.3) 06/13/21 Unknown Basophils % (Manual) 0 % (0.0-1.8) 06/13/21 Unknown Metamyelocytes % 0 % 06/13/21 Unknown Myelocytes % 0 % 06/13/21 Unknown Promyelocytes % 0 % 06/13/21 Unknown Blast Cells % 0 % 06/13/21 Unknown Nucleated RBC % Not Reportable 06/13/21 Unknown Seg Neutrophils # 12.8 K/mm3 (1.8-7.7) H 06/21/21 04:42 Seg Neutrophils # Man 19.8 K/mm3 (1.8-7.7) H 06/13/21 Unknown Band Neutrophils # 0.5 K/mm3 06/13/21 Unknown Lymphocytes # (Manual) 0.9 K/mm3 (1.2-5.4) L 06/13/21 Unknown Abs React Lymphs (Man) 0.0 K/mm3 06/13/21 Unknown Monocytes # (Manual) 1.4 K/mm3 (0.0-0.8) H 06/13/21 Unknown Eosinophils # (Manual) 0.0 K/mm3 (0.0-0.4) 06/13/21 Unknown Basophils # (Manual) 0.0 K/mm3 (0.0-0.1) 06/13/21 Unknown Metamyelocytes # 0.0 K/mm3 06/13/21 Unknown Myelocytes # 0.0 K/mm3 06/13/21 Unknown Promyelocytes # 0.0 K/mm3 06/13/21 Unknown Blast Cells # 0.0 K/mm3 06/13/21 Unknown WBC Morphology Not Reportable 06/13/21 Unknown Hypersegmented Neuts Not Reportable 06/13/21 Unknown Hyposegmented Neuts Not Reportable 06/13/21 Unknown Hypogranular Neuts Not Reportable 06/13/21 Unknown Smudge Cells Not Reportable 06/13/21 Unknown Toxic Granulation 2+ 06/13/21 Unknown Toxic Vacuolation Not Reportable 06/13/21 Unknown Dohle Bodies Not Reportable 06/13/21 Unknown Pelger-Huet Anomaly Not Reportable 06/13/21 Unknown Dennis Rods Not Reportable 06/13/21 Unknown Platelet Estimate Consistent w auto 06/13/21 Unknown Clumped Platelets Not Reportable 06/13/21 Unknown Plt Clumps, EDTA Not Reportable 06/13/21 Unknown Large Platelets Not Reportable 06/13/21 Unknown Giant Platelets Not Reportable 06/13/21 Unknown Platelet Satelliting Not Reportable 06/13/21 Unknown Plt Morphology Comment Not Reportable 06/13/21 Unknown RBC Morphology Not Reportable 06/13/21 Unknown Dimorphic RBCs Not Reportable 06/13/21 Unknown Polychromasia Few 06/13/21 Unknown Hypochromasia 2+ 06/13/21 Unknown Poikilocytosis Not Reportable 06/13/21 Unknown Anisocytosis 1+ 06/13/21 Unknown Microcytosis Not Reportable 06/13/21 Unknown Macrocytosis Not Reportable 06/13/21 Unknown Spherocytes Not Reportable 06/13/21 Unknown Pappenheimer Bodies Not Reportable 06/13/21 Unknown Sickle Cells Not Reportable 06/13/21 Unknown Target Cells Not Reportable 06/13/21 Unknown Tear Drop Cells Not Reportable 06/13/21 Unknown Ovalocytes Not Reportable 06/13/21 Unknown Stomatocytes Few 06/12/21 01:45 Helmet Cells Not Reportable 06/13/21 Unknown Sal[place]-Tolstoy Bodies Not Reportable 06/13/21 Unknown [place] Rings Not Reportable 06/13/21 Unknown [place] Cells Not Reportable 06/13/21 Unknown Bite Cells Not Reportable 06/13/21 Unknown Crenated Cell Not Reportable 06/13/21 Unknown Elliptocytes Not Reportable 06/13/21 Unknown Acanthocytes (Spur) Not Reportable 06/13/21 Unknown Rouleaux Not Reportable 06/13/21 Unknown Hemoglobin C Crystals Not Reportable 06/13/21 Unknown Schistocytes Not Reportable 06/13/21 Unknown Malaria parasites Not Reportable 06/13/21 Unknown Edin Bodies Not Reportable 06/13/21 Unknown Hem Pathologist Commnt No 06/13/21 Unknown PT 18.3 Sec. (12.2-14.9) H 06/20/21 04:33 INR 1.37 (0.87-1.13) H 06/20/21 04:33 APTT 26.4 Sec. (24.2-36.6) 06/13/21 Unknown Fibrinogen 546 mg/dl (211-480) H 06/13/21 Unknown D-Dimer 1244.63 ng/mlDDU (0-234) H 06/13/21 Unknown ABG pH 7.426 pH Units (7.350-7.450) 06/21/21 04:20 POC ABG pCO2 25.6 mmHg (32.0-48.0) L 06/13/21 04:31 ABG pCO2 35.1 mm Hg 06/21/21 04:20 POC ABG pO2 138.8 mmHg (83-108) H 06/13/21 04:31 ABG pO2 98.5 mm Hg (80.0-90.0) H 06/21/21 04:20 POC ABG HCO3 21.4 06/13/21 04:31 ABG HCO3 22.6 mmol/L (20.0-26.0) 06/21/21 04:20 ABG O2 Saturation 97.7 % (95.0-99.0) 06/21/21 04:20 ABG O2 Content 9.9 (0.0-44) 06/21/21 04:20 POC ABG Base Excess -0.7 06/13/21 04:31 ABG Base Excess -1.6 mmol/L (-2.0-3.0) 06/21/21 04:20 ABG Hemoglobin 7.2 gm/dl (12.0-16.0) L 06/21/21 04:20 ABG Oxyhemoglobin 98.1 (94-98) H 06/13/21 04:31 ABG Carboxyhemoglobin 1.7 % (0.0-5.0) 06/21/21 04:20 ABG Methemoglobin 0.5 % (0.0-1.5) 06/21/21 04:20 Oxyhemoglobin 95.5 % (95.0-99.0) 06/21/21 04:20 Carboxyhemoglobin 0.8 (0.5-1.5) 06/13/21 04:31 FiO2 30 % 06/21/21 04:20 FiO2 % 40.0 06/13/21 04:31 Sodium 140 mmol/L (137-145) 06/30/21 04:25 Potassium 3.0 mmol/L (3.6-5.0) L 06/30/21 04:25 Chloride 105.0 mmol/L (98-107) 06/30/21 04:25 Carbon Dioxide 25 mmol/L (22-30) 06/30/21 04:25 Anion Gap 13 mmol/L 06/30/21 04:25 BUN 20 mg/dL (7-17) H 06/30/21 04:25 Creatinine 0.7 mg/dL (0.6-1.2) 06/30/21 04:25 Estimated GFR > 60 ml/min 06/30/21 04:25 BUN/Creatinine Ratio 29 % 06/30/21 04:25 Glucose 104 mg/dL (65-100) H 06/30/21 04:25 POC Glucose 119 mg/dL (70-105) H 06/30/21 08:14 Lactic Acid 5.30 mmol/L (0.7-2.0) H* 06/13/21 15:45 Calcium 8.3 mg/dL (8.4-10.2) L 06/30/21 04:25 Phosphorus 2.90 mg/dL (2.5-4.5) 06/27/21 04:15 Magnesium 1.80 mg/dL (1.7-2.3) 06/29/21 04:00 Total Bilirubin 0.40 mg/dL (0.1-1.2) 06/15/21 03:56 AST 64 units/L (5-40) H 06/15/21 03:56 ALT 106 units/L (7-56) H 06/15/21 03:56 Alkaline Phosphatase 55 units/L (35-129) 06/15/21 03:56 Troponin T < 0.010 ng/mL (0.00-0.029) 06/11/21 23:21 C-Reactive Protein 3.30 mg/dL (0.00-1.30) H 06/16/21 04:32 Total Protein 5.1 g/dL (6.3-8.2) L 06/15/21 03:56 Albumin 2.9 g/dL (3.9-5) L 06/15/21 03:56 Albumin/Globulin Ratio 1.3 % 06/15/21 03:56 Triglycerides 254 mg/dL (2-149) H 06/21/21 04:42 Urine Color Yellow (Yellow) 06/12/21 17:00 Urine Turbidity Clear (Clear) 06/12/21 17:00 Urine pH 5.0 (5.0-7.0) 06/12/21 17:00 Ur Specific [place] 1.035 (1.003-1.030) H 06/12/21 17:00 Urine Protein 30 mg/dl mg/dL (Negative) 06/12/21 17:00 Urine Glucose (UA) 50 mg/dL (Negative) 06/12/21 17:00 Urine Ketones Tr mg/dL (Negative) 06/12/21 17:00 Urine Blood Neg (Negative) 06/12/21 17:00 Urine Nitrite Neg (Negative) 06/12/21 17:00 Urine Bilirubin Neg (Negative) 06/12/21 17:00 Urine Urobilinogen < 2.0 mg/dL (<2.0) 06/12/21 17:00 Ur Leukocyte Esterase Neg (Negative) 06/12/21 17:00 Urine WBC (Auto) < 1.0 /HPF (0.0-6.0) 06/12/21 17:00 Urine RBC (Auto) < 1.0 /HPF (0.0-6.0) 06/12/21 17:00 Urine Creatinine 81.1 mg/dL (0.1-20.0) H 06/15/21 10:40 Urine Sodium 42 mmol/L 06/15/21 10:40 Coronavirus (PCR) Negative (Negative) 06/12/21 09:50 Blood Type O POSITIVE 06/24/21 06:40 Antibody Screen Negative 06/24/21 06:40 Crossmatch See Detail 06/24/21 06:40 Lujan/IV: Voiding Method Indwelling Catheter Active Medications - Current Medications Current Medications: Generic Name Dose Route Start Last Admin Trade Name Freq PRN Reason Stop Dose Admin Amlodipine Besylate 5 mg 06/23/21 10:00 06/30/21 09:38 Amlodipine 5 Mg Tab PO 5 mg QDAY JOLENE Administration Lipase/Protease/Amylase 1 each 06/19/21 19:20 Lipase 10,500/Protease 25,000/Amylase 43,750 (Units) Dr Melgar FEEDTUBE PRN PRN For Clogged Feeding Tube Atorvastatin Calcium 20 mg 06/22/21 22:00 06/29/21 21:19 Atorvastatin 20 Mg Tab PO 20 mg QHS JOLENE Administration Docusate Sodium 100 mg 06/20/21 10:00 06/30/21 09:39 Docusate Sodium 100 Mg/10 Ml Oral Liqd PO Not Given BID JOLENE Famotidine 20 mg 06/24/21 22:00 06/30/21 09:38 Famotidine 20 Mg Tab FEEDTUBE 20 mg BID JOLENE Administration Hydralazine HCl 100 mg 06/22/21 19:00 06/30/21 05:09 Hydralazine 100 Mg Tab FEEDTUBE 100 mg Q8HR JOLENE Administration Hydromorphone HCl 0.5 mg 06/11/21 20:42 06/30/21 09:38 Hydromorphone 1 Mg/1 Ml Inj IV 0.5 mg Q3H PRN Administration Pain , Severe (7-10) Piperacillin Sod/Tazobactam Sod 4.5 gm in 100 mls @ 200 mls/hr 06/25/21 12:00 06/30/21 05:08 Zosyn/Ns 4.5gm/100ml IV 100 mls/hr Q6HR JOLENE Administration Protocol Insulin Glargine 25 units 06/30/21 22:00 Insulin Glargine 100 Units/Ml SUB-Q QHS [facility] Insulin Human Lispro 0 unit 06/12/21 12:00 06/30/21 05:09 Insulin Lispro 100 Unit/Ml SUB-Q Not Given Q6HR [facility] Protocol Labetalol HCl 10 mg 06/21/21 18:00 06/27/21 00:53 Labetalol 20 Mg/4 Ml Inj IV 10 mg Q4HR PRN Administration Hypertension Metoclopramide HCl 10 mg 06/11/21 20:42 Metoclopramide 10 Mg/2 Ml Inj IV Q6H PRN Nausea And Vomiting Ondansetron HCl 4 mg 06/11/21 20:42 Ondansetron 4 Mg/2 Ml Inj IV Q3H PRN Nausea And Vomiting Prednisone 20 mg 06/28/21 10:00 06/30/21 09:39 Prednisone 5 Mg/5 Ml Oral Liquid FEEDTUBE 07/03/21 09:59 20 mg QDAY JOLENE Administration Senna 17.6 mg 06/20/21 10:00 06/30/21 09:39 Sennosides Oral Liqd 8.8 Mg/5 Ml Oral Liqd PO Not Given Q12HR JOLENE Simple Syrup 15 ml 06/19/21 19:20 Simple Syrup 15 Ml FEEDTUBE PRN PRN Hypoglycemia Simple Syrup 30 ml 06/19/21 19:20 Simple Syrup 15 Ml FEEDTUBE PRN PRN Hypoglycemia Sodium Bicarbonate 325 mg 06/19/21 19:20 Sodium Bicarbonate 325 Mg Tab FEEDTUBE PRN PRN For Clogged Feeding Tube Sodium Chloride 10 ml 06/11/21 22:00 06/30/21 09:39 Sodium Chloride 0.9% 10 Ml Flush Syringe IV 10 ml BID JOLENE Administration Sodium Chloride 10 ml 06/11/21 20:42 Sodium Chloride 0.9% 10 Ml Flush Syringe IV PRN PRN LINE FLUSH Nutrition/Malnutrition Assess - Dietary Evaluation Nutrition/Malnutrition Findings: Nutrition Notes Start: 06/16/21 12:10 Freq: Status: Active Protocol: Document 06/27/21 15:42 CANDIDO (Rec: 06/27/21 15:54 CANDIDO [id number]) Nutrition Notes Initial or Follow up Brief Note Current Diet TF-Vital AF 1.2 Quan @ 50 ml/hr (since D 06/21). Height 5 ft 8 in Weight 109.316 kg [place] Body Weight (kg) 63.63 BMI 36.6 Weight change and time frame No body weight change reported in 11 days. Weight Status Obese Subjective/Other Information RD consult for routine F/U on TF tolerance. TF continues as prescribed, with no significant events noted. Pt continues on Mechanical Ventilation through Tracheostomy, well tolerated, according to Progress notes. Pt still waiting for transfer to [place]. Percent of energy/protein needs met: Prescribed Vital AF 1.2 Quan @ 50 ml/hr provides for energy/ protein needs (1,440 Kcal/90 g ) during LOS; 105% Kcal and 71 % AA. #1 Nutrition Diagnosis Inadequate oral intake Diagnosis Progress(for reassessment Continues documentation) Is patient on ventilator? Yes Is Patient Ambulatory and/or Out of Bed No REE-(Baker-[facility]-confined to bed) 5162.884 Calculation Used for Recommendations 65-70% energy needs Additional Notes Energy needs: 1280-1379kcal/ day Pro needs 2g/kg IBW: 127g/day Fluid needs 1ml/kcal Nutrition Intervention Nutrition Support: Continue Vital AF 1.2 Quan @ 50 ml/hr. Flush: 200 ml water Q 4 hr. When hypernatermia resolved, provide 80 ml water flush Q 4 hr. Kcal 1,440 Protein (gm) 90 Carbohydrates (gm) 133 Fat (gm) 65 Fluid (mL) 973 Fiber (gm) 6 % RDI: 105% Kcal; 71% AA. Goal #1 Provide at least 75% of energy /protein needs through Enteral Feeding during LOS. Goal #2 Maintain body weight within +/ -3% of admission body weight during LOS. Follow-Up By: 07/01/21 Additional Comments Continue monitoring Mechanical Ventilation, Na/Flush, TF tolerance and BM. <MIKE CORTEZ E - Last Filed: 06/30/21 15:46> Assessment and Plan Assessment and plan: I saw and evaluated the patient. I agree with the findings and the plan of care as documented in the Nurse Practitioner's~note, with the following corrections and additions. Hospitalist Physical - Constitutional Vitals: Temp Pulse Resp BP Pulse Ox 99 F 92 H 17 149/80 97 06/30/21 12:00 06/30/21 13:00 06/30/21 13:00 06/30/21 13:00 06/30/21 13:00 HEART Score - HEART Score Troponin: Troponin T < 0.010 ng/mL (0.00-0.029) 06/11/21 23:21 Results - Labs CBC & Chem 7: 06/30/21 04:25 06/30/21 04:25 Labs: Laboratory Last Values WBC 13.0 K/mm3 (4.5-11.0) H 06/30/21 04:25 RBC 3.19 M/mm3 (3.65-5.03) L 06/30/21 04:25 Hgb 8.2 gm/dl (10.1-14.3) L 06/30/21 04:25 Hct 26.2 % (30.3-42.9) L 06/30/21 04:25 MCV 82 fl (79-97) 06/30/21 04:25 MCH 26 pg (28-32) L 06/30/21 04:25 MCHC 31 % (30-34) 06/30/21 04:25 RDW 22.3 % (13.2-15.2) H 06/30/21 04:25 Plt Count 187 K/mm3 (140-440) 06/30/21 04:25 Lymph % (Auto) 3.5 % (13.4-35.0) L 06/21/21 04:42 Rowan % (Auto) 11.7 % (0.0-7.3) H 06/21/21 04:42 Eos % (Auto) 0.0 % (0.0-4.3) 06/21/21 04:42 Baso % (Auto) 0.1 % (0.0-1.8) 06/21/21 04:42 Lymph # (Auto) 0.5 K/mm3 (1.2-5.4) L 06/21/21 04:42 Rowan # (Auto) 1.8 K/mm3 (0.0-0.8) H 06/21/21 04:42 Eos # (Auto) 0.0 K/mm3 (0.0-0.4) 06/21/21 04:42 Baso # (Auto) 0.0 K/mm3 (0.0-0.1) 06/21/21 04:42 Add Manual Diff Complete 06/30/21 04:25 Total Counted 100 06/30/21 04:25 Seg Neutrophils % 84.7 % (40.0-70.0) H 06/21/21 04:42 Seg Neuts % (Manual) 81.0 % (40.0-70.0) H 06/30/21 04:25 Band Neutrophils % 0 % 06/30/21 04:25 Lymphocytes % (Manual) 10.0 % (13.4-35.0) L 06/30/21 04:25 Reactive Lymphs % (Man) 0 % 06/30/21 04:25 Monocytes % (Manual) 8.0 % (0.0-7.3) H 06/30/21 04:25 Eosinophils % (Manual) 1.0 % (0.0-4.3) 06/30/21 04:25 Basophils % (Manual) 0 % (0.0-1.8) 06/30/21 04:25 Metamyelocytes % 0 % 06/30/21 04:25 Myelocytes % 0 % 06/30/21 04:25 Promyelocytes % 0 % 06/30/21 04:25 Blast Cells % 0 % 06/30/21 04:25 Nucleated RBC % Not Reportable 06/30/21 04:25 Seg Neutrophils # 12.8 K/mm3 (1.8-7.7) H 06/21/21 04:42 Seg Neutrophils # Man 10.5 K/mm3 (1.8-7.7) H 06/30/21 04:25 Band Neutrophils # 0.0 K/mm3 06/30/21 04:25 Lymphocytes # (Manual) 1.3 K/mm3 (1.2-5.4) 06/30/21 04:25 Abs React Lymphs (Man) 0.0 K/mm3 06/30/21 04:25 Monocytes # (Manual) 1.0 K/mm3 (0.0-0.8) H 06/30/21 04:25 Eosinophils # (Manual) 0.1 K/mm3 (0.0-0.4) 06/30/21 04:25 Basophils # (Manual) 0.0 K/mm3 (0.0-0.1) 06/30/21 04:25 Metamyelocytes # 0.0 K/mm3 06/30/21 04:25 Myelocytes # 0.0 K/mm3 06/30/21 04:25 Promyelocytes # 0.0 K/mm3 06/30/21 04:25 Blast Cells # 0.0 K/mm3 06/30/21 04:25 WBC Morphology Not Reportable 06/30/21 04:25 Hypersegmented Neuts Not Reportable 06/30/21 04:25 Hyposegmented Neuts Not Reportable 06/30/21 04:25 Hypogranular Neuts Not Reportable 06/30/21 04:25 Smudge Cells Not Reportable 06/30/21 04:25 Toxic Granulation Not Reportable 06/30/21 04:25 Toxic Vacuolation Not Reportable 06/30/21 04:25 Dohle Bodies Not Reportable 06/30/21 04:25 Pelger-Huet Anomaly Not Reportable 06/30/21 04:25 Dennis Rods Not Reportable 06/30/21 04:25 Platelet Estimate Consistent w auto 06/30/21 04:25 Clumped Platelets Not Reportable 06/30/21 04:25 Plt Clumps, EDTA Not Reportable 06/30/21 04:25 Large Platelets Few 06/30/21 04:25 Giant Platelets Not Reportable 06/30/21 04:25 Platelet Satelliting Not Reportable 06/30/21 04:25 Plt Morphology Comment Not Reportable 06/30/21 04:25 RBC Morphology Not Reportable 06/30/21 04:25 Dimorphic RBCs Not Reportable 06/30/21 04:25 Polychromasia Rare 06/30/21 04:25 Hypochromasia 1+ 06/30/21 04:25 Poikilocytosis Not Reportable 06/30/21 04:25 Anisocytosis 1+ 06/30/21 04:25 Microcytosis Not Reportable 06/30/21 04:25 Macrocytosis Not Reportable 06/30/21 04:25 Spherocytes Not Reportable 06/30/21 04:25 Pappenheimer Bodies Not Reportable 06/30/21 04:25 Sickle Cells Not Reportable 06/30/21 04:25 Target Cells Rare 06/30/21 04:25 Tear Drop Cells Few 06/30/21 04:25 Ovalocytes Not Reportable 06/30/21 04:25 Stomatocytes Few 06/12/21 01:45 Helmet Cells Not Reportable 06/30/21 04:25 Salamanca-Tolstoy Bodies Not Reportable 06/30/21 04:25 [place] Rings Not Reportable 06/30/21 04:25 [place] Cells Not Reportable 06/30/21 04:25 Bite Cells Not Reportable 06/30/21 04:25 Crenated Cell Not Reportable 06/30/21 04:25 Elliptocytes Not Reportable 06/30/21 04:25 Acanthocytes (Spur) Not Reportable 06/30/21 04:25 Rouleaux Not Reportable 06/30/21 04:25 Hemoglobin C Crystals Not Reportable 06/30/21 04:25 Schistocytes Not Reportable 06/30/21 04:25 Malaria parasites Not Reportable 06/30/21 04:25 Edin Bodies Not Reportable 06/30/21 04:25 Hem Pathologist Commnt No 06/30/21 04:25 PT 18.3 Sec. (12.2-14.9) H 06/20/21 04:33 INR 1.37 (0.87-1.13) H 06/20/21 04:33 APTT 26.4 Sec. (24.2-36.6) 06/13/21 Unknown Fibrinogen 546 mg/dl (211-480) H 06/13/21 Unknown D-Dimer 1244.63 ng/mlDDU (0-234) H 06/13/21 Unknown ABG pH 7.426 pH Units (7.350-7.450) 06/21/21 04:20 POC ABG pCO2 25.6 mmHg (32.0-48.0) L 06/13/21 04:31 ABG pCO2 35.1 mm Hg 06/21/21 04:20 POC ABG pO2 138.8 mmHg (83-108) H 06/13/21 04:31 ABG pO2 98.5 mm Hg (80.0-90.0) H 06/21/21 04:20 POC ABG HCO3 21.4 06/13/21 04:31 ABG HCO3 22.6 mmol/L (20.0-26.0) 06/21/21 04:20 ABG O2 Saturation 97.7 % (95.0-99.0) 06/21/21 04:20 ABG O2 Content 9.9 (0.0-44) 06/21/21 04:20 POC ABG Base Excess -0.7 06/13/21 04:31 ABG Base Excess -1.6 mmol/L (-2.0-3.0) 06/21/21 04:20 ABG Hemoglobin 7.2 gm/dl (12.0-16.0) L 06/21/21 04:20 ABG Oxyhemoglobin 98.1 (94-98) H 06/13/21 04:31 ABG Carboxyhemoglobin 1.7 % (0.0-5.0) 06/21/21 04:20 ABG Methemoglobin 0.5 % (0.0-1.5) 06/21/21 04:20 Oxyhemoglobin 95.5 % (95.0-99.0) 06/21/21 04:20 Carboxyhemoglobin 0.8 (0.5-1.5) 06/13/21 04:31 FiO2 30 % 06/21/21 04:20 FiO2 % 40.0 06/13/21 04:31 Sodium 140 mmol/L (137-145) 06/30/21 04:25 Potassium 3.0 mmol/L (3.6-5.0) L 06/30/21 04:25 Chloride 105.0 mmol/L (98-107) 06/30/21 04:25 Carbon Dioxide 25 mmol/L (22-30) 06/30/21 04:25 Anion Gap 13 mmol/L 06/30/21 04:25 BUN 20 mg/dL (7-17) H 06/30/21 04:25 Creatinine 0.7 mg/dL (0.6-1.2) 06/30/21 04:25 Estimated GFR > 60 ml/min 06/30/21 04:25 BUN/Creatinine Ratio 29 % 06/30/21 04:25 Glucose 104 mg/dL (65-100) H 06/30/21 04:25 POC Glucose 154 mg/dL (70-105) H 06/30/21 11:36 Lactic Acid 5.30 mmol/L (0.7-2.0) H* 06/13/21 15:45 Calcium 8.3 mg/dL (8.4-10.2) L 06/30/21 04:25 Phosphorus 2.90 mg/dL (2.5-4.5) 06/27/21 04:15 Magnesium 1.70 mg/dL (1.7-2.3) 06/30/21 04:25 Total Bilirubin 0.40 mg/dL (0.1-1.2) 06/15/21 03:56 AST 64 units/L (5-40) H 06/15/21 03:56 ALT 106 units/L (7-56) H 06/15/21 03:56 Alkaline Phosphatase 55 units/L (35-129) 06/15/21 03:56 Troponin T < 0.010 ng/mL (0.00-0.029) 06/11/21 23:21 C-Reactive Protein 3.30 mg/dL (0.00-1.30) H 06/16/21 04:32 Total Protein 5.1 g/dL (6.3-8.2) L 06/15/21 03:56 Albumin 2.9 g/dL (3.9-5) L 06/15/21 03:56 Albumin/Globulin Ratio 1.3 % 06/15/21 03:56 Triglycerides 254 mg/dL (2-149) H 06/21/21 04:42 Urine Color Yellow (Yellow) 06/12/21 17:00 Urine Turbidity Clear (Clear) 06/12/21 17:00 Urine pH 5.0 (5.0-7.0) 06/12/21 17:00 Ur Specific [place] 1.035 (1.003-1.030) H 06/12/21 17:00 Urine Protein 30 mg/dl mg/dL (Negative) 06/12/21 17:00 Urine Glucose (UA) 50 mg/dL (Negative) 06/12/21 17:00 Urine Ketones Tr mg/dL (Negative) 06/12/21 17:00 Urine Blood Neg (Negative) 06/12/21 17:00 Urine Nitrite Neg (Negative) 06/12/21 17:00 Urine Bilirubin Neg (Negative) 06/12/21 17:00 Urine Urobilinogen < 2.0 mg/dL (<2.0) 06/12/21 17:00 Ur Leukocyte Esterase Neg (Negative) 06/12/21 17:00 Urine WBC (Auto) < 1.0 /HPF (0.0-6.0) 06/12/21 17:00 Urine RBC (Auto) < 1.0 /HPF (0.0-6.0) 06/12/21 17:00 Urine Creatinine 81.1 mg/dL (0.1-20.0) H 06/15/21 10:40 Urine Sodium 42 mmol/L 06/15/21 10:40 Coronavirus (PCR) Negative (Negative) 06/12/21 09:50 Blood Type O POSITIVE 06/24/21 06:40 Antibody Screen Negative 06/24/21 06:40 Crossmatch See Detail 06/24/21 06:40 Lujan/IV: Voiding Method Indwelling Catheter Active Medications - Current Medications Current Medications: Generic Name Dose Route Start Last Admin Trade Name Freq PRN Reason Stop Dose Admin Amlodipine Besylate 5 mg 06/23/21 10:00 06/30/21 09:38 Amlodipine 5 Mg Tab PO 5 mg QDAY JOLENE Administration Lipase/Protease/Amylase 1 each 06/19/21 19:20 Lipase 10,500/Protease 25,000/Amylase 43,750 (Units) Dr Melgar FEEDTUBE PRN PRN For Clogged Feeding Tube Atorvastatin Calcium 20 mg 06/22/21 22:00 06/29/21 21:19 Atorvastatin 20 Mg Tab PO 20 mg QHS JOLENE Administration Docusate Sodium 100 mg 06/20/21 10:00 06/30/21 09:39 Docusate Sodium 100 Mg/10 Ml Oral Liqd PO Not Given BID [facility] Enoxaparin Sodium 40 mg 06/30/21 22:00 Enoxaparin 40 Mg/0.4 Ml Inj SUB-Q QDAY@2200 [facility] Protocol Famotidine 20 mg 06/24/21 22:00 06/30/21 09:38 Famotidine 20 Mg Tab FEEDTUBE 20 mg BID JOLENE Administration Hydralazine HCl 100 mg 06/22/21 19:00 06/30/21 13:37 Hydralazine 100 Mg Tab FEEDTUBE 100 mg Q8HR JOLENE Administration Hydromorphone HCl 0.5 mg 06/11/21 20:42 06/30/21 09:38 Hydromorphone 1 Mg/1 Ml Inj IV 0.5 mg Q3H PRN Administration Pain , Severe (7-10) Piperacillin Sod/Tazobactam Sod 4.5 gm in 100 mls @ 200 mls/hr 06/25/21 12:00 06/30/21 11:37 Zosyn/Ns 4.5gm/100ml IV 100 mls/hr Q6HR JOLENE Administration Protocol Insulin Glargine 25 units 06/30/21 22:00 Insulin Glargine 100 Units/Ml SUB-Q QHS [facility] Insulin Human Lispro 0 unit 06/12/21 12:00 06/30/21 11:39 Insulin Lispro 100 Unit/Ml SUB-Q 3 unit Q6HR JOLENE Administration Protocol Labetalol HCl 10 mg 06/21/21 18:00 06/27/21 00:53 Labetalol 20 Mg/4 Ml Inj IV 10 mg Q4HR PRN Administration Hypertension Metoclopramide HCl 10 mg 06/11/21 20:42 Metoclopramide 10 Mg/2 Ml Inj IV Q6H PRN Nausea And Vomiting Ondansetron HCl 4 mg 06/11/21 20:42 Ondansetron 4 Mg/2 Ml Inj IV Q3H PRN Nausea And Vomiting Senna 17.6 mg 06/20/21 10:00 06/30/21 09:39 Sennosides Oral Liqd 8.8 Mg/5 Ml Oral Liqd PO Not Given Q12HR JOLENE Simple Syrup 15 ml 06/19/21 19:20 Simple Syrup 15 Ml FEEDTUBE PRN PRN Hypoglycemia Simple Syrup 30 ml 06/19/21 19:20 Simple Syrup 15 Ml FEEDTUBE PRN PRN Hypoglycemia Sodium Bicarbonate 325 mg 06/19/21 19:20 Sodium Bicarbonate 325 Mg Tab FEEDTUBE PRN PRN For Clogged Feeding Tube Sodium Chloride 10 ml 06/11/21 22:00 06/30/21 09:39 Sodium Chloride 0.9% 10 Ml Flush Syringe IV 10 ml BID JOLENE Administration Sodium Chloride 10 ml 06/11/21 20:42 Sodium Chloride 0.9% 10 Ml Flush Syringe IV PRN PRN LINE FLUSH Nutrition/Malnutrition Assess - Dietary Evaluation Nutrition/Malnutrition Findings: Nutrition Notes Start: 06/16/21 12:10 Freq: Status: Active Protocol: Document 06/27/21 15:42 CANDIDO (Rec: 06/27/21 15:54 CANDIDO [id number]) Nutrition Notes Initial or Follow up Brief Note Current Diet TF-Vital AF 1.2 Quan @ 50 ml/hr (since D 06/21). Height 5 ft 8 in Weight 109.316 kg [place] Body Weight (kg) 63.63 BMI 36.6 Weight change and time frame No body weight change reported in 11 days. Weight Status Obese Subjective/Other Information RD consult for routine F/U on TF tolerance. TF continues as prescribed, with no significant events noted. Pt continues on Mechanical Ventilation through Tracheostomy, well tolerated, according to Progress notes. Pt still waiting for transfer to [place]. Percent of energy/protein needs met: Prescribed Vital AF 1.2 Quan @ 50 ml/hr provides for energy/ protein needs (1,440 Kcal/90 g ) during LOS; 105% Kcal and 71 % AA. #1 Nutrition Diagnosis Inadequate oral intake Diagnosis Progress(for reassessment Continues documentation) Is patient on ventilator? Yes Is Patient Ambulatory and/or Out of Bed No [facility] 0573.665 Calculation Used for Recommendations 65-70% energy needs Additional Notes Energy needs: 1280-1379kcal/ day Pro needs 2g/kg IBW: 127g/day Fluid needs 1ml/kcal Nutrition Intervention Nutrition Support: Continue Vital AF 1.2 Quan @ 50 ml/hr. Flush: 200 ml water Q 4 hr. When hypernatermia resolved, provide 80 ml water flush Q 4 hr. Kcal 1,440 Protein (gm) 90 Carbohydrates (gm) 133 Fat (gm) 65 Fluid (mL) 973 Fiber (gm) 6 % RDI: 105% Kcal; 71% AA. Goal #1 Provide at least 75% of energy /protein needs through Enteral Feeding during LOS. Goal #2 Maintain body weight within +/ -3% of admission body weight during LOS. Follow-Up By: 07/01/21 Additional Comments Continue monitoring Mechanical Ventilation, Na/Flush, TF tolerance and BM.
[2021-06-30] MEDS ORDERED: INSULIN GLARGINE 100 UNITS/ML SUB-Q SCH (10:00)
[2021-06-30] MEDS ORDERED: MAGNESIUM SULFATE 4 GM/100 ML BAG IV SCH (10:30)
--- NOTE | 2021-06-30 10:51 | Event Note ---
Date: 06/30/21 I called Srinivas Suarez and gave him and his an update on her care and discussed next steps of care home of LTACH but informed [facility] that Ms Hargrove is working on the next step. I answered questions and thank you for the update. cct 30 min
[2021-06-30] MEDS ORDERED: ENOXAPARIN 40 MG/0.4 ML INJ SUB-Q SCH (11:00)
--- NOTE | 2021-06-30 11:03 | Progress Note ---
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 06/30/21: Aggressive replacement of electrolytes. Will repeat chemistry tonight around 8. please call for orders as we would like to keep her K at 4 and Mag at 2. Chemistry in the am. Stable for transfer to telemetry floor. 06/29/21: Speech did see but patient had decreased voice quality and increased wob so aborted. Will ask them to assess again on Thursday. Chest tube out and ordered follow up CXR. Stable for transfer but ok with continuing monitoring in ICU. If bed needed could go to step down. 06/28/21: monitor drainage in ICU for 24 more hours. Can likely come out tomorrow. Continue in ICU for now. Once chest tube out, no objection to transfer. 06/27/21: Will place chest tube to water seal. Instructed staff if any change i n respiratory status, place back on suction and obtain CXR. Otherwise will leave off. Continue T-piece as tolerated. Rehab/fpc/LTACH appropriate. STable for transfer if and when bed becomes available. 06/26/21: T-piece today. If off the vent, agree with surgery and removal of chest tube as subq emphysema is improving as well. PT has seen suggested LTACH, however if we are able to wean she may need fpc/rehab. Prognosis continues to improve. 06/25/21: Continue PSV as tolerated. Hopeful T-piece in the next 24-48 hours. Will drop steroids down further on . Can switch to daily and even change to oral. PT/OT consult, and follow up recs. May need LTACH vs rehab vs both. Continue to follow. 06/24/21: Daily PSV trials. Maybe ready for T-piece sson. Continue to wean steroids to off. IMS changed to 40q12 which is fine. Continue chest tube until off vent. Still on list for [facility] but will discuss with CM about checking into LTACH as patient will need rehab. PT/OT consult. 06/21/21: Continue current level of sedation. Chest tube does not have air leak but there is clear evidence of a PTX on right. Stripped tube at bedside and will repeat CXR in the morning. Hold on weaning sedation for now and hold on PSV trials. May need second chest tube vs vats if PTX worsens or does not resolve. Patient still on list for [facility], hopeful they will have a bed soon. Drop steroids to 40q8 starting Thursday. Monitor renal function, likely will improve. Needs more free water. Prognosis still remains guarded. 06/20/21: Restart some sedation. At least pain and maybe diprovan. Would like to wake patient up at some point and attempt some PSV trials. Labs are off this am. Large bump in white count but no fever, also no diff drawn. Could be error vs steroid related but this is in just 24 hours. Will repeat tomorrow. If spikes a temp neves culture as well. Small bump in Cr but still in normal range. Will watch. Now that peg in place, tube feeds and free water flushes. Still on list for [facility]. Patient has been steroids greater than 7 days so will have to wean. Can drop to 60q8 starting tomorrow. Prognosis still remains guarded. 06/19/21: surgery to attempt trach and peg today. Still will ask to keep on transfer list for [facility] as her other issues still need to be addressed. If able to place peg, can stop clinimix, give free water and start tube feeds. Prognosis remains guarded. pH better with drop in tidal volume. 06/18/21: [facility] has agreed to accept but no ICU beds available at this time. Spoke with Dr. Vasquez yesterday and Dr. Patricia spoke with ENT there. Spoke with RT this am and patient did have a leak when cuff let down and her tidal volumes dropped to below 100. Patient remains on abx and steriods. Will consider lightening sedation tomorrow and seeing how patient does if cuff leak persists. Dropped tidal volumes to 450. Continue PPN for now. 06/17/21: spoke with surgery and they feel transfer is reasonable. I have reached out to [facility] and CANDY has spoken with someone from [facility]. Await to hear back from them. Continue supportive measures and adequate sedation for pain control. No PSV trials as of yet. Blood sugar control, increase lantus. Most likely secondary to steroids. Continue abx therapy. Guarded prognosis. 06/16/21: Renal function improved with fluids. IMS to give more fluids (LR) today which I agree with. FeNa is =0.7. Should be fluid responsive. Continue clinimix. Needs long acting insulin. Agree with lantus. Asked nursing to increase sedation now that we know that patient's mental status is stable. Picc today. Air leak test vs Neck CT on tomorrow. 06/15/21: Hopeful with worsening renal function ( likely from code on yesterday) that sedatives are just lingering from that. Still making good urine but output has fallen off. Will send urine sodium and urine cr to check Fena. Most likely this is prerenal. ordered renal ultrasound as well. Continue abx and steroids. Will start clinimix today. This should help with the free water piece. Will give another liter bolus of LR right now. Keep sedation off for now. Guarded prognosis. 06/14/21: Will discuss with surgery future plans. They have ordered steroids to help with inflammation and abx continue. All others appears stable and no acute evidence of bleeding at this time. Follow up surgery recs if any new ones. Guarded prognosis. 06/13/21: Patient to back to OR today. BLood transfusion. Will send DIC panel and may need to given cryo if over 6 units of PRBC's given. Patient will likely need trach and peg as we need to address nutrition. Chest tube placed, large bore now. Patient now with right sided effusion. Hemothorax???. Will continue to monitor output. Needs picc line as femoral should come out soon. Continue pressors. Continue sedation for pain control and comfort. Guarded prognosis. Surgery comfortable with neck and current situation so they have not request transfer. 1. Placed right femoral central line. pressors can run through this. 2. Repeat chemistry stat given bicarb of 8 and blood sugar of greater than 600. Ordering FSBS now. Earlier bicarb was 25. If accurate will need bicarb drip and vasopressin but not sure as pH on blood gas was normal done around the same time. 3. Coagulopathy is improving. INR down to 4.55 and PTT and pT improving. Will continue to give FFP. Ordered more vitamin K. H/H is stable but patient is oozing from neck and mouth. 4. Vasopressor for blood pressure. Need to keep map 65 and greater 5. Lujan is needed for accurate I/O 6. Surgery called by IMS about current CT situation. They state they will reassess in the am. I have reviewed the images myself. If I can position the patient safely without compromising the airway after adequate sedation, may co nsider placing chest tube now as INR is better and FFP is hanging. Patient is morbidly obese so shits could move the ET tube so if not safe, will wait until surgery comes in the morning. 7. Would not attempt to pass OG or NG tube given current situation in neck 8. Will discuss with surgery tomorrow but I feel this patient should be transferred to a tertiary care facility with ENT as we do not have that service here. CCT 31 minutes. Subjective Date of service: 06/30/21 Interval history: Had some tachycardia last night and electrolytes were off this morning. Continues to tolerate T-piece. Objective Vital Signs - 12hr 06/29/21 06/30/21 06/30/21 23:30 00:00 00:04 Temperature 99 F Pulse Rate 100 H 90 121 H Pulse Rate [ From Monitor] Respiratory 13 20 19 Rate Blood Pressure 129/62 134/64 134/64 O2 Sat by Pulse 97 91 99 Oximetry O2 Sat by Pulse Oximetry [ Assessment] 06/30/21 06/30/21 06/30/21 00:05 00:30 01:00 Temperature Pulse Rate 90 98 H 108 H Pulse Rate [ From Monitor] Respiratory 20 26 H 23 Rate Blood Pressure 134/64 141/77 O2 Sat by Pulse 99 99 97 Oximetry O2 Sat by Pulse Oximetry [ Assessment] 06/30/21 06/30/21 06/30/21 01:20 01:30 02:00 Temperature Pulse Rate 97 H 97 H 97 H Pulse Rate [ From Monitor] Respiratory 20 24 17 Rate Blood Pressure 141/77 153/77 O2 Sat by Pulse 99 100 99 Oximetry O2 Sat by Pulse Oximetry [ Assessment] 06/30/21 06/30/21 06/30/21 02:20 02:29 02:30 Temperature Pulse Rate 97 H 87 Pulse Rate [ From Monitor] Respiratory 20 22 Rate Blood Pressure 153/77 O2 Sat by Pulse 100 Oximetry O2 Sat by Pulse Oximetry [ Assessment] 06/30/21 06/30/21 06/30/21 03:00 03:30 04:00 Temperature 98.6 F Pulse Rate 109 H 91 H 101 H Pulse Rate [ From Monitor] Respiratory 22 27 H 29 H Rate Blood Pressure 150/84 150/84 155/77 O2 Sat by Pulse 99 100 99 Oximetry O2 Sat by Pulse Oximetry [ Assessment] 06/30/21 06/30/21 06/30/21 04:13 04:30 05:00 Temperature Pulse Rate 110 H 105 H Pulse Rate [ From Monitor] Respiratory 17 23 Rate Blood Pressure 155/77 160/84 O2 Sat by Pulse 100 100 98 Oximetry O2 Sat by Pulse Oximetry [ Assessment] 06/30/21 06/30/21 06/30/21 05:30 06:00 06:30 Temperature Pulse Rate 98 H 95 H 102 H Pulse Rate [ From Monitor] Respiratory 23 21 21 Rate Blood Pressure 160/84 151/72 151/72 O2 Sat by Pulse 100 98 100 Oximetry O2 Sat by Pulse Oximetry [ Assessment] 06/30/21 06/30/21 06/30/21 06:34 07:00 07:30 Temperature Pulse Rate 100 H 112 H 98 H Pulse Rate [ From Monitor] Respiratory 17 18 Rate Blood Pressure 156/80 156/80 O2 Sat by Pulse 97 99 Oximetry O2 Sat by Pulse Oximetry [ Assessment] 06/30/21 06/30/21 06/30/21 07:42 08:00 08:20 Temperature 99 F Pulse Rate 96 H Pulse Rate [ 122 H From Monitor] Respiratory 16 Rate Blood Pressure 150/76 O2 Sat by Pulse 99 100 Oximetry O2 Sat by Pulse 99 Oximetry [ Assessment] 06/30/21 06/30/21 06/30/21 08:30 09:00 09:30 Temperature Pulse Rate 106 H 117 H 96 H Pulse Rate [ From Monitor] Respiratory 25 H 23 28 H Rate Blood Pressure 150/76 155/86 155/86 O2 Sat by Pulse 99 98 100 Oximetry O2 Sat by Pulse Oximetry [ Assessment] 06/30/21 06/30/21 06/30/21 09:38 10:00 10:30 Temperature Pulse Rate 104 H 108 H 93 H Pulse Rate [ From Monitor] Respiratory 20 12 Rate Blood Pressure 155/86 148/75 148/75 O2 Sat by Pulse 98 100 Oximetry O2 Sat by Pulse Oximetry [ Assessment] Constitutional: alert, other (on vent trach in place) Eyes: non-icteric ENT: oropharynx moist Neck: other (trach in place) Ascultation: Bilateral: clear Percussion: Bilateral: not dull Cardiovascular: regular rate and rhythm Gastrointestinal: normoactive bowel sounds, soft Integumentary: other (subq emphysema) Extremities: no edema, other (subq emphysema) Neurologic: normal mental status CBC and BMP: 06/30/21 04:25 06/30/21 04:25 ABG, PT/INR, D-dimer: ABG ABG pH 7.426 pH Units (7.350-7.450) 06/21/21 04:20 POC ABG pCO2 25.6 mmHg (32.0-48.0) L 06/13/21 04:31 ABG pCO2 35.1 mm Hg 06/21/21 04:20 POC ABG pO2 138.8 mmHg (83-108) H 06/13/21 04:31 ABG pO2 98.5 mm Hg (80.0-90.0) H 06/21/21 04:20 POC ABG HCO3 21.4 06/13/21 04:31 ABG O2 Saturation 97.7 % (95.0-99.0) 06/21/21 04:20 PT/INR, D-dimer PT 18.3 Sec. (12.2-14.9) H 06/20/21 04:33 INR 1.37 (0.87-1.13) H 06/20/21 04:33 D-Dimer 1244.63 ng/mlDDU (0-234) H 06/13/21 Unknown Abnormal lab findings: Abnormal Labs 06/11/21 06/11/21 06/11/21 15:23 15:23 19:20 WBC 12.0 H RBC Hgb Hct MCV 72 L MCH 21 L RDW 17.5 H Plt Count Lymph % (Auto) 12.9 L [place] % (Auto) 8.6 H Lymph # (Auto) [place] # (Auto) 1.0 H Seg Neutrophils % 77.4 H Seg Neuts % (Manual) Lymphocytes % (Manual) Monocytes % (Manual) Seg Neutrophils # 9.3 H Seg Neutrophils # Man Lymphocytes # (Manual) Monocytes # (Manual) PT INR APTT Fibrinogen D-Dimer ABG pH POC ABG pCO2 POC ABG pO2 ABG pO2 ABG HCO3 ABG O2 Saturation ABG Base Excess ABG Hemoglobin ABG Oxyhemoglobin Oxyhemoglobin Sodium Potassium Chloride Carbon Dioxide BUN Creatinine Glucose 144 H POC Glucose Lactic Acid Calcium Phosphorus Magnesium AST ALT Alkaline Phosphatase C-Reactive Protein Total Protein Albumin Triglycerides Ur Specific [place] Urine Creatinine Crossmatch See Detail 06/11/21 06/11/21 06/11/21 19:29 19:29 23:21 WBC 15.8 H RBC Hgb 9.4 L Hct MCV 72 L MCH 22 L RDW 17.4 H Plt Count Lymph % (Auto) 9.2 L [place] % (Auto) Lymph # (Auto) [place] # (Auto) Seg Neutrophils % 89.0 H Seg Neuts % (Manual) Lymphocytes % (Manual) Monocytes % (Manual) Seg Neutrophils # 14.0 H Seg Neutrophils # Man Lymphocytes # (Manual) Monocytes # (Manual) PT 72.9 H INR 8.18 H* APTT 71.7 H* Fibrinogen D-Dimer ABG pH POC ABG pCO2 POC ABG pO2 ABG pO2 ABG HCO3 ABG O2 Saturation ABG Base Excess ABG Hemoglobin ABG Oxyhemoglobin Oxyhemoglobin Sodium 149 H D Potassium Chloride 124.3 H Carbon Dioxide 8 L* D BUN Creatinine 0.3 L Glucose 628 H* POC Glucose Lactic Acid Calcium 2.4 L* D Phosphorus Magnesium AST ALT < 5 L Alkaline Phosphatase 19 L C-Reactive Protein Total Protein 1.6 L D Albumin 0.8 L Triglycerides Ur Specific [place] Urine Creatinine Crossmatch 06/11/21 06/11/21 06/11/21 23:21 23:22 23:42 WBC RBC Hgb Hct MCV MCH 27 L RDW 22.2 H Plt Count 131 L Lymph % (Auto) [place] % (Auto) Lymph # (Auto) [place] # (Auto) Seg Neutrophils % Seg Neuts % (Manual) Lymphocytes % (Manual) Monocytes % (Manual) Seg Neutrophils # Seg Neutrophils # Man Lymphocytes # (Manual) Monocytes # (Manual) PT 46.3 H INR 4.55 H APTT 54.8 H Fibrinogen D-Dimer ABG pH POC ABG pCO2 POC ABG pO2 325.9 H ABG pO2 ABG HCO3 ABG O2 Saturation ABG Base Excess ABG Hemoglobin 8.0 L ABG Oxyhemoglobin 99.0 H Oxyhemoglobin Sodium Potassium Chloride Carbon Dioxide BUN Creatinine Glucose POC Glucose Lactic Acid Calcium Phosphorus Magnesium AST ALT Alkaline Phosphatase C-Reactive Protein Total Protein Albumin Triglycerides Ur Specific [place] Urine Creatinine Crossmatch 06/12/21 06/12/21 06/12/21 01:45 01:45 01:45 WBC 21.6 H RBC 3.04 L Hgb 6.7 L D Hct 22.4 L D MCV 74 L MCH 22 L RDW 18.9 H Plt Count Lymph % (Auto) [place] % (Auto) Lymph # (Auto) [place] # (Auto) Seg Neutrophils % Seg Neuts % (Manual) 76.0 H Lymphocytes % (Manual) 2.0 L Monocytes % (Manual) 8.0 H Seg Neutrophils # Seg Neutrophils # Man 16.4 H Lymphocytes # (Manual) 0.4 L Monocytes # (Manual) 1.7 H PT 25.4 H INR 2.10 H APTT Fibrinogen D-Dimer ABG pH POC ABG pCO2 POC ABG pO2 ABG pO2 ABG HCO3 ABG O2 Saturation ABG Base Excess ABG Hemoglobin ABG Oxyhemoglobin Oxyhemoglobin Sodium Potassium 5.6 H D Chloride Carbon Dioxide 20 L D BUN Creatinine Glucose 368 H POC Glucose Lactic Acid Calcium 7.1 L D Phosphorus Magnesium AST ALT Alkaline Phosphatase C-Reactive Protein Total Protein 5.3 L D Albumin 3.1 L Triglycerides Ur Specific [place] Urine Creatinine Crossmatch 06/12/21 06/12/21 06/12/21 02:05 04:41 11:05 WBC 14.6 H RBC 3.52 L Hgb 8.5 L Hct 27.7 L MCV MCH 24 L RDW 20.9 H Plt Count Lymph % (Auto) [place] % (Auto) Lymph # (Auto) [place] # (Auto) Seg Neutrophils % Seg Neuts % (Manual) Lymphocytes % (Manual) Monocytes % (Manual) Seg Neutrophils # Seg Neutrophils # Man Lymphocytes # (Manual) Monocytes # (Manual) PT INR APTT Fibrinogen D-Dimer ABG pH POC ABG pCO2 POC ABG pO2 224.6 H ABG pO2 ABG HCO3 ABG O2 Saturation ABG Base Excess ABG Hemoglobin 7.3 L ABG Oxyhemoglobin 98.7 H Oxyhemoglobin Sodium Potassium Chloride Carbon Dioxide BUN Creatinine Glucose POC Glucose 308 H Lactic Acid Calcium Phosphorus Magnesium AST ALT Alkaline Phosphatase C-Reactive Protein Total Protein Albumin Triglycerides Ur Specific [place] Urine Creatinine Crossmatch 06/12/21 06/12/21 06/12/21 11:05 11:05 12:18 WBC RBC Hgb Hct MCV MCH RDW Plt Count Lymph % (Auto) [place] % (Auto) Lymph # (Auto) [place] # (Auto) Seg Neutrophils % Seg Neuts % (Manual) Lymphocytes % (Manual) Monocytes % (Manual) Seg Neutrophils # Seg Neutrophils # Man Lymphocytes # (Manual) Monocytes # (Manual) PT 16.8 H INR 1.23 H APTT Fibrinogen D-Dimer ABG pH POC ABG pCO2 POC ABG pO2 ABG pO2 ABG HCO3 ABG O2 Saturation ABG Base Excess ABG Hemoglobin ABG Oxyhemoglobin Oxyhemoglobin Sodium Potassium Chloride Carbon Dioxide BUN 24 H Creatinine Glucose 324 H POC Glucose 281 H Lactic Acid Calcium 7.5 L Phosphorus Magnesium AST 70 H ALT 57 H Alkaline Phosphatase C-Reactive Protein Total Protein 6.0 L Albumin 3.6 L Triglycerides Ur Specific [place] Urine Creatinine Crossmatch 06/12/21 06/12/21 06/12/21 17:00 17:00 17:00 WBC RBC Hgb 7.5 L Hct 24.0 L MCV MCH RDW Plt Count Lymph % (Auto) [place] % (Auto) Lymph # (Auto) [place] # (Auto) Seg Neutrophils % Seg Neuts % (Manual) Lymphocytes % (Manual) Monocytes % (Manual) Seg Neutrophils # Seg Neutrophils # Man Lymphocytes # (Manual) Monocytes # (Manual) PT 16.0 H INR 1.16 H APTT Fibrinogen D-Dimer ABG pH POC ABG pCO2 POC ABG pO2 ABG pO2 ABG HCO3 ABG O2 Saturation ABG Base Excess ABG Hemoglobin ABG Oxyhemoglobin Oxyhemoglobin Sodium Potassium Chloride Carbon Dioxide BUN Creatinine Glucose POC Glucose Lactic Acid Calcium Phosphorus Magnesium AST ALT Alkaline Phosphatase C-Reactive Protein Total Protein Albumin Triglycerides Ur Specific [place] 1.035 H Urine Creatinine Crossmatch 06/12/21 06/12/21 06/12/21 18:06 23:00 23:05 WBC RBC Hgb 7.6 L Hct 23.5 L MCV MCH RDW Plt Count Lymph % (Auto) [place] % (Auto) Lymph # (Auto) [place] # (Auto) Seg Neutrophils % Seg Neuts % (Manual) Lymphocytes % (Manual) Monocytes % (Manual) Seg Neutrophils # Seg Neutrophils # Man Lymphocytes # (Manual) Monocytes # (Manual) PT INR APTT Fibrinogen D-Dimer ABG pH POC ABG pCO2 POC ABG pO2 ABG pO2 ABG HCO3 ABG O2 Saturation ABG Base Excess ABG Hemoglobin ABG Oxyhemoglobin Oxyhemoglobin Sodium Potassium Chloride Carbon Dioxide BUN Creatinine Glucose POC Glucose 257 H 300 H Lactic Acid Calcium Phosphorus Magnesium AST ALT Alkaline Phosphatase C-Reactive Protein Total Protein Albumin Triglycerides Ur Specific [place] Urine Creatinine Crossmatch 06/13/21 06/13/21 06/13/21 04:31 05:19 07:30 WBC RBC Hgb 6.8 L Hct 21.7 L MCV MCH RDW Plt Count Lymph % (Auto) [place] % (Auto) Lymph # (Auto) [place] # (Auto) Seg Neutrophils % Seg Neuts % (Manual) Lymphocytes % (Manual) Monocytes % (Manual) Seg Neutrophils # Seg Neutrophils # Man Lymphocytes # (Manual) Monocytes # (Manual) PT INR APTT Fibrinogen D-Dimer ABG pH 7.541 H POC ABG pCO2 25.6 L POC ABG pO2 138.8 H ABG pO2 ABG HCO3 ABG O2 Saturation ABG Base Excess ABG Hemoglobin 7.3 L ABG Oxyhemoglobin 98.1 H Oxyhemoglobin Sodium Potassium Chloride Carbon Dioxide BUN Creatinine Glucose POC Glucose 286 H Lactic Acid Calcium Phosphorus Magnesium AST ALT Alkaline Phosphatase C-Reactive Protein Total Protein Albumin Triglycerides Ur Specific [place] Urine Creatinine Crossmatch 06/13/21 06/13/21 06/13/21 07:30 12:04 14:50 WBC RBC Hgb Hct MCV MCH RDW Plt Count Lymph % (Auto) [place] % (Auto) Lymph # (Auto) [place] # (Auto) Seg Neutrophils % Seg Neuts % (Manual) Lymphocytes % (Manual) Monocytes % (Manual) Seg Neutrophils # Seg Neutrophils # Man Lymphocytes # (Manual) Monocytes # (Manual) PT INR APTT Fibrinogen D-Dimer ABG pH 7.039 L* 7.182 L* POC ABG pCO2 POC ABG pO2 ABG pO2 63.1 L ABG HCO3 17.4 L ABG O2 Saturation 73.4 L ABG Base Excess -12.6 L -7.1 L ABG Hemoglobin 7.7 L 6.9 L ABG Oxyhemoglobin Oxyhemoglobin 71.8 L 93.5 L Sodium Potassium Chloride 108.9 H Carbon Dioxide BUN 28 H Creatinine Glucose 293 H POC Glucose Lactic Acid Calcium 7.2 L Phosphorus Magnesium AST 106 H ALT 92 H Alkaline Phosphatase C-Reactive Protein Total Protein 5.6 L Albumin 3.3 L Triglycerides Ur Specific [place] Urine Creatinine Crossmatch 06/13/21 06/13/21 06/13/21 14:54 15:45 17:34 WBC RBC Hgb Hct MCV MCH RDW Plt Count Lymph % (Auto) [place] % (Auto) Lymph # (Auto) [place] # (Auto) Seg Neutrophils % Seg Neuts % (Manual) Lymphocytes % (Manual) Monocytes % (Manual) Seg Neutrophils # Seg Neutrophils # Man Lymphocytes # (Manual) Monocytes # (Manual) PT INR APTT Fibrinogen D-Dimer ABG pH POC ABG pCO2 POC ABG pO2 ABG pO2 178.4 H ABG HCO3 ABG O2 Saturation 99.1 H ABG Base Excess ABG Hemoglobin 8.0 L ABG Oxyhemoglobin Oxyhemoglobin Sodium Potassium Chloride 107.3 H Carbon Dioxide 19 L BUN 33 H Creatinine 1.5 H Glucose 379 H POC Glucose Lactic Acid 5.30 H* Calcium 6.8 L Phosphorus Magnesium AST ALT Alkaline Phosphatase C-Reactive Protein Total Protein Albumin Triglycerides Ur Specific [place] Urine Creatinine Crossmatch 06/13/21 06/13/21 06/13/21 17:40 23:29 Unknown WBC 22.5 H RBC 3.16 L Hgb 8.0 L Hct 26.0 L MCV MCH 26 L RDW 21.4 H Plt Count Lymph % (Auto) [place] % (Auto) Lymph # (Auto) [place] # (Auto) Seg Neutrophils % Seg Neuts % (Manual) 88.0 H Lymphocytes % (Manual) 4.0 L Monocytes % (Manual) Seg Neutrophils # Seg Neutrophils # Man 19.8 H Lymphocytes # (Manual) 0.9 L Monocytes # (Manual) 1.4 H PT INR APTT Fibrinogen D-Dimer ABG pH POC ABG pCO2 POC ABG pO2 ABG pO2 ABG HCO3 ABG O2 Saturation ABG Base Excess ABG Hemoglobin ABG Oxyhemoglobin Oxyhemoglobin Sodium Potassium Chloride Carbon Dioxide BUN Creatinine Glucose POC Glucose 294 H 288 H Lactic Acid Calcium Phosphorus Magnesium AST ALT Alkaline Phosphatase C-Reactive Protein Total Protein Albumin Triglycerides Ur Specific [place] Urine Creatinine Crossmatch 06/13/21 06/14/21 06/14/21 Unknown 05:39 06:15 WBC RBC 2.93 L Hgb 7.2 L Hct 23.2 L MCV MCH 25 L RDW 21.2 H Plt Count Lymph % (Auto) [place] % (Auto) Lymph # (Auto) [place] # (Auto) Seg Neutrophils % Seg Neuts % (Manual) Lymphocytes % (Manual) Monocytes % (Manual) Seg Neutrophils # Seg Neutrophils # Man Lymphocytes # (Manual) Monocytes # (Manual) PT 17.6 H INR 1.31 H APTT Fibrinogen 546 H D-Dimer 1244.63 H ABG pH POC ABG pCO2 POC ABG pO2 ABG pO2 ABG HCO3 ABG O2 Saturation ABG Base Excess ABG Hemoglobin ABG Oxyhemoglobin Oxyhemoglobin Sodium Potassium Chloride Carbon Dioxide BUN Creatinine Glucose POC Glucose 246 H Lactic Acid Calcium Phosphorus Magnesium AST ALT Alkaline Phosphatase C-Reactive Protein Total Protein Albumin Triglycerides Ur Specific [place] Urine Creatinine Crossmatch 06/14/21 06/14/21 06/14/21 06:15 06:15 09:13 WBC RBC Hgb Hct MCV MCH RDW Plt Count Lymph % (Auto) [place] % (Auto) Lymph # (Auto) [place] # (Auto) Seg Neutrophils % Seg Neuts % (Manual) Lymphocytes % (Manual) Monocytes % (Manual) Seg Neutrophils # Seg Neutrophils # Man Lymphocytes # (Manual) Monocytes # (Manual) PT INR APTT Fibrinogen D-Dimer ABG pH POC ABG pCO2 POC ABG pO2 ABG pO2 183.0 H ABG HCO3 ABG O2 Saturation 99.2 H ABG Base Excess ABG Hemoglobin 6.6 L ABG Oxyhemoglobin Oxyhemoglobin Sodium 147 H Potassium Chloride 112.5 H Carbon Dioxide 21 L BUN 36 H Creatinine 1.4 H Glucose 281 H POC Glucose Lactic Acid Calcium 6.9 L Phosphorus Magnesium AST ALT Alkaline Phosphatase C-Reactive Protein Total Protein Albumin Triglycerides 189 H Ur Specific [place] Urine Creatinine Crossmatch 06/14/21 06/14/21 06/14/21 10:45 12:16 13:30 WBC RBC Hgb 7.1 L Hct 22.3 L MCV MCH RDW Plt Count Lymph % (Auto) [place] % (Auto) Lymph # (Auto) [place] # (Auto) Seg Neutrophils % Seg Neuts % (Manual) Lymphocytes % (Manual) Monocytes % (Manual) Seg Neutrophils # Seg Neutrophils # Man Lymphocytes # (Manual) Monocytes # (Manual) PT INR APTT Fibrinogen D-Dimer ABG pH 7.205 L POC ABG pCO2 POC ABG pO2 ABG pO2 261.3 H ABG HCO3 ABG O2 Saturation 99.4 H ABG Base Excess -7.2 L ABG Hemoglobin 7.6 L ABG Oxyhemoglobin Oxyhemoglobin Sodium Potassium Chloride Carbon Dioxide BUN Creatinine Glucose POC Glucose 174 H Lactic Acid Calcium Phosphorus Magnesium AST ALT Alkaline Phosphatase C-Reactive Protein Total Protein Albumin Triglycerides Ur Specific [place] Urine Creatinine Crossmatch 06/14/21 06/14/2106/15/22 17:40 18:43 00:06 WBC RBC Hgb Hct MCV MCH RDW Plt Count Lymph % (Auto) [place] % (Auto) Lymph # (Auto) [place] # (Auto) Seg Neutrophils % Seg Neuts % (Manual) Lymphocytes % (Manual) Monocytes % (Manual) Seg Neutrophils # Seg Neutrophils # Man Lymphocytes # (Manual) Monocytes # (Manual) PT INR APTT Fibrinogen D-Dimer ABG pH 7.292 L POC ABG pCO2 POC ABG pO2 ABG pO2 78.8 L ABG HCO3 ABG O2 Saturation ABG Base Excess -5.0 L ABG Hemoglobin 9.1 L ABG Oxyhemoglobin Oxyhemoglobin 93.7 L Sodium Potassium Chloride Carbon Dioxide BUN Creatinine Glucose POC Glucose 182 H 144 H Lactic Acid Calcium Phosphorus Magnesium AST ALT Alkaline Phosphatase C-Reactive Protein Total Protein Albumin Triglycerides Ur Specific [place] Urine Creatinine Crossmatch 06/15/21 06/15/21 06/15/21 03:55 03:56 10:40 WBC RBC Hgb 8.4 L Hct 25.8 L MCV MCH RDW Plt Count Lymph % (Auto) [place] % (Auto) Lymph # (Auto) [place] # (Auto) Seg Neutrophils % Seg Neuts % (Manual) Lymphocytes % (Manual) Monocytes % (Manual) Seg Neutrophils # Seg Neutrophils # Man Lymphocytes # (Manual) Monocytes # (Manual) PT INR APTT Fibrinogen D-Dimer ABG pH POC ABG pCO2 POC ABG pO2 ABG pO2 ABG HCO3 ABG O2 Saturation ABG Base Excess ABG Hemoglobin ABG Oxyhemoglobin Oxyhemoglobin Sodium 147 H Potassium Chloride 112.2 H Carbon Dioxide 21 L BUN 47 H Creatinine 1.9 H Glucose 272 H POC Glucose Lactic Acid Calcium 7.3 L Phosphorus Magnesium AST 64 H ALT 106 H Alkaline Phosphatase C-Reactive Protein Total Protein 5.1 L Albumin 2.9 L Triglycerides Ur Specific [place] Urine Creatinine 81.1 H Crossmatch 06/15/21 06/15/21 06/15/21 11:46 17:16 23:17 WBC RBC Hgb Hct MCV MCH RDW Plt Count Lymph % (Auto) [place] % (Auto) Lymph # (Auto) [place] # (Auto) Seg Neutrophils % Seg Neuts % (Manual) Lymphocytes % (Manual) Monocytes % (Manual) Seg Neutrophils # Seg Neutrophils # Man Lymphocytes # (Manual) Monocytes # (Manual) PT INR APTT Fibrinogen D-Dimer ABG pH POC ABG pCO2 POC ABG pO2 ABG pO2 ABG HCO3 ABG O2 Saturation ABG Base Excess ABG Hemoglobin ABG Oxyhemoglobin Oxyhemoglobin Sodium Potassium Chloride Carbon Dioxide BUN Creatinine Glucose POC Glucose 271 H 268 H 264 H Lactic Acid Calcium Phosphorus Magnesium AST ALT Alkaline Phosphatase C-Reactive Protein Total Protein Albumin Triglycerides Ur Specific [place] Urine Creatinine Crossmatch 06/15/21 06/15/21 06/16/21 Unknown Unknown 04:32 WBC RBC 3.21 L 3.16 L Hgb 8.4 L 8.2 L Hct 26.1 L 25.4 L MCV MCH 26 L 26 L RDW 21.3 H 21.2 H Plt Count 105 L 118 L Lymph % (Auto) [place] % (Auto) Lymph # (Auto) [place] # (Auto) Seg Neutrophils % Seg Neuts % (Manual) Lymphocytes % (Manual) Monocytes % (Manual) Seg Neutrophils # Seg Neutrophils # Man Lymphocytes # (Manual) Monocytes # (Manual) PT INR APTT Fibrinogen D-Dimer ABG pH 7.465 H POC ABG pCO2 POC ABG pO2 ABG pO2 114.1 H ABG HCO3 ABG O2 Saturation ABG Base Excess ABG Hemoglobin 8.4 L ABG Oxyhemoglobin Oxyhemoglobin Sodium Potassium Chloride Carbon Dioxide BUN Creatinine Glucose POC Glucose Lactic Acid Calcium Phosphorus Magnesium AST ALT Alkaline Phosphatase C-Reactive Protein Total Protein Albumin Triglycerides Ur Specific [place] Urine Creatinine Crossmatch 06/16/21 06/16/21 06/16/21 04:32 04:32 05:08 WBC RBC Hgb Hct MCV MCH RDW Plt Count Lymph % (Auto) [place] % (Auto) Lymph # (Auto) [place] # (Auto) Seg Neutrophils % Seg Neuts % (Manual) Lymphocytes % (Manual) Monocytes % (Manual) Seg Neutrophils # Seg Neutrophils # Man Lymphocytes # (Manual) Monocytes # (Manual) PT INR APTT Fibrinogen D-Dimer ABG pH POC ABG pCO2 POC ABG pO2 ABG pO2 ABG HCO3 ABG O2 Saturation ABG Base Excess ABG Hemoglobin ABG Oxyhemoglobin Oxyhemoglobin Sodium 148 H Potassium 3.3 L Chloride 115.1 H Carbon Dioxide 21 L BUN 54 H Creatinine 1.6 H Glucose 367 H POC Glucose 356 H Lactic Acid Calcium 7.4 L Phosphorus Magnesium AST ALT Alkaline Phosphatase C-Reactive Protein 3.30 H Total Protein Albumin Triglycerides Ur Specific [place] Urine Creatinine Crossmatch 06/16/21 06/16/21 06/16/21 05:30 11:46 17:03 WBC RBC Hgb Hct MCV MCH RDW Plt Count Lymph % (Auto) [place] % (Auto) Lymph # (Auto) [place] # (Auto) Seg Neutrophils % Seg Neuts % (Manual) Lymphocytes % (Manual) Monocytes % (Manual) Seg Neutrophils # Seg Neutrophils # Man Lymphocytes # (Manual) Monocytes # (Manual) PT INR APTT Fibrinogen D-Dimer ABG pH 7.475 H POC ABG pCO2 POC ABG pO2 ABG pO2 171.8 H ABG HCO3 ABG O2 Saturation 99.1 H ABG Base Excess ABG Hemoglobin 11.7 L ABG Oxyhemoglobin Oxyhemoglobin Sodium Potassium Chloride Carbon Dioxide BUN Creatinine Glucose POC Glucose 309 H 345 H Lactic Acid Calcium Phosphorus Magnesium AST ALT Alkaline Phosphatase C-Reactive Protein Total Protein Albumin Triglycerides Ur Specific [place] Urine Creatinine Crossmatch 06/16/21 06/16/21 06/17/21 20:18 23:22 04:50 WBC RBC Hgb Hct MCV MCH RDW Plt Count Lymph % (Auto) [place] % (Auto) Lymph # (Auto) [place] # (Auto) Seg Neutrophils % Seg Neuts % (Manual) Lymphocytes % (Manual) Monocytes % (Manual) Seg Neutrophils # Seg Neutrophils # Man Lymphocytes # (Manual) Monocytes # (Manual) PT INR APTT Fibrinogen D-Dimer ABG pH 7.479 H POC ABG pCO2 POC ABG pO2 ABG pO2 143.1 H ABG HCO3 ABG O2 Saturation ABG Base Excess ABG Hemoglobin 10.0 L ABG Oxyhemoglobin Oxyhemoglobin Sodium Potassium Chloride Carbon Dioxide BUN Creatinine Glucose POC Glucose 325 H 315 H Lactic Acid Calcium Phosphorus Magnesium AST ALT Alkaline Phosphatase C-Reactive Protein Total Protein Albumin Triglycerides Ur Specific [place] Urine Creatinine Crossmatch 06/17/21 06/17/21 06/17/21 05:18 05:30 05:30 WBC RBC 3.17 L Hgb 8.2 L Hct 25.5 L MCV MCH 26 L RDW 21.2 H Plt Count 128 L Lymph % (Auto) [place] % (Auto) Lymph # (Auto) [place] # (Auto) Seg Neutrophils % Seg Neuts % (Manual) Lymphocytes % (Manual) Monocytes % (Manual) Seg Neutrophils # Seg Neutrophils # Man Lymphocytes # (Manual) Monocytes # (Manual) PT INR APTT Fibrinogen D-Dimer ABG pH POC ABG pCO2 POC ABG pO2 ABG pO2 ABG HCO3 ABG O2 Saturation ABG Base Excess ABG Hemoglobin ABG Oxyhemoglobin Oxyhemoglobin Sodium 148 H Potassium Chloride 113.7 H Carbon Dioxide 20 L BUN 57 H Creatinine 1.4 H Glucose 351 H POC Glucose 324 H Lactic Acid Calcium 8.0 L Phosphorus 2.30 L Magnesium AST ALT Alkaline Phosphatase C-Reactive Protein Total Protein Albumin Triglycerides Ur Specific [place] Urine Creatinine Crossmatch 06/17/21 06/17/21 06/17/21 11:49 17:43 21:42 WBC RBC Hgb Hct MCV MCH RDW Plt Count Lymph % (Auto) [place] % (Auto) Lymph # (Auto) [place] # (Auto) Seg Neutrophils % Seg Neuts % (Manual) Lymphocytes % (Manual) Monocytes % (Manual) Seg Neutrophils # Seg Neutrophils # Man Lymphocytes # (Manual) Monocytes # (Manual) PT INR APTT Fibrinogen D-Dimer ABG pH POC ABG pCO2 POC ABG pO2 ABG pO2 ABG HCO3 ABG O2 Saturation ABG Base Excess ABG Hemoglobin ABG Oxyhemoglobin Oxyhemoglobin Sodium Potassium Chloride Carbon Dioxide BUN Creatinine Glucose POC Glucose 305 H 307 H 286 H Lactic Acid Calcium Phosphorus Magnesium AST ALT Alkaline Phosphatase C-Reactive Protein Total Protein Albumin Triglycerides Ur Specific [place] Urine Creatinine Crossmatch 06/17/21 06/18/21 06/18/21 23:59 04:20 04:37 WBC RBC 3.53 L Hgb 9.1 L Hct 28.7 L MCV MCH 26 L RDW 21.3 H Plt Count Lymph % (Auto) [place] % (Auto) Lymph # (Auto) [place] # (Auto) Seg Neutrophils % Seg Neuts % (Manual) Lymphocytes % (Manual) Monocytes % (Manual) Seg Neutrophils # Seg Neutrophils # Man Lymphocytes # (Manual) Monocytes # (Manual) PT INR APTT Fibrinogen D-Dimer ABG pH 7.495 H POC ABG pCO2 POC ABG pO2 ABG pO2 108.3 H ABG HCO3 ABG O2 Saturation ABG Base Excess -2.1 L ABG Hemoglobin 10.0 L ABG Oxyhemoglobin Oxyhemoglobin Sodium Potassium Chloride Carbon Dioxide BUN Creatinine Glucose POC Glucose 264 H Lactic Acid Calcium Phosphorus Magnesium AST ALT Alkaline Phosphatase C-Reactive Protein Total Protein Albumin Triglycerides Ur Specific [place] Urine Creatinine Crossmatch 06/18/21 06/18/21 06/18/21 04:37 05:32 11:21 WBC RBC Hgb Hct MCV MCH RDW Plt Count Lymph % (Auto) [place] % (Auto) Lymph # (Auto) [place] # (Auto) Seg Neutrophils % Seg Neuts % (Manual) Lymphocytes % (Manual) Monocytes % (Manual) Seg Neutrophils # Seg Neutrophils # Man Lymphocytes # (Manual) Monocytes # (Manual) PT INR APTT Fibrinogen D-Dimer ABG pH POC ABG pCO2 POC ABG pO2 ABG pO2 ABG HCO3 ABG O2 Saturation ABG Base Excess ABG Hemoglobin ABG Oxyhemoglobin Oxyhemoglobin Sodium 148 H Potassium Chloride 114.7 H Carbon Dioxide BUN 59 H Creatinine 1.3 H Glucose 329 H POC Glucose 293 H 291 H Lactic Acid Calcium 8.1 L Phosphorus Magnesium AST ALT Alkaline Phosphatase C-Reactive Protein Total Protein Albumin Triglycerides Ur Specific [place] Urine Creatinine Crossmatch 06/18/21 06/18/21 06/19/21 18:21 21:46 00:15 WBC RBC Hgb Hct MCV MCH RDW Plt Count Lymph % (Auto) [place] % (Auto) Lymph # (Auto) [place] # (Auto) Seg Neutrophils % Seg Neuts % (Manual) Lymphocytes % (Manual) Monocytes % (Manual) Seg Neutrophils # Seg Neutrophils # Man Lymphocytes # (Manual) Monocytes # (Manual) PT INR APTT Fibrinogen D-Dimer ABG pH POC ABG pCO2 POC ABG pO2 ABG pO2 ABG HCO3 ABG O2 Saturation ABG Base Excess ABG Hemoglobin ABG Oxyhemoglobin Oxyhemoglobin Sodium Potassium Chloride Carbon Dioxide BUN Creatinine Glucose POC Glucose 239 H 259 H 310 H Lactic Acid Calcium Phosphorus Magnesium AST ALT Alkaline Phosphatase C-Reactive Protein Total Protein Albumin Triglycerides Ur Specific [place] Urine Creatinine Crossmatch 06/19/21 06/19/21 06/19/21 04:00 04:00 04:50 WBC RBC 3.64 L Hgb 9.1 L Hct 29.1 L MCV MCH 25 L RDW 21.5 H Plt Count Lymph % (Auto) [place] % (Auto) Lymph # (Auto) [place] # (Auto) Seg Neutrophils % Seg Neuts % (Manual) Lymphocytes % (Manual) Monocytes % (Manual) Seg Neutrophils # Seg Neutrophils # Man Lymphocytes # (Manual) Monocytes # (Manual) PT INR APTT Fibrinogen D-Dimer ABG pH POC ABG pCO2 POC ABG pO2 ABG pO2 78.9 L ABG HCO3 ABG O2 Saturation ABG Base Excess -3.2 L ABG Hemoglobin 7.6 L ABG Oxyhemoglobin Oxyhemoglobin Sodium 148 H Potassium Chloride 114.9 H Carbon Dioxide 19 L BUN 59 H Creatinine Glucose 345 H POC Glucose Lactic Acid Calcium 8.1 L Phosphorus 4.60 H D Magnesium 2.40 H AST ALT Alkaline Phosphatase C-Reactive Protein Total Protein Albumin Triglycerides Ur Specific [place] Urine Creatinine Crossmatch 06/19/21 06/19/21 06/19/21 06:28 11:11 17:20 WBC RBC Hgb Hct MCV MCH RDW Plt Count Lymph % (Auto) [place] % (Auto) Lymph # (Auto) [place] # (Auto) Seg Neutrophils % Seg Neuts % (Manual) Lymphocytes % (Manual) Monocytes % (Manual) Seg Neutrophils # Seg Neutrophils # Man Lymphocytes # (Manual) Monocytes # (Manual) PT 29.7 H INR 2.57 H APTT Fibrinogen D-Dimer ABG pH POC ABG pCO2 POC ABG pO2 ABG pO2 ABG HCO3 ABG O2 Saturation ABG Base Excess ABG Hemoglobin ABG Oxyhemoglobin Oxyhemoglobin Sodium Potassium Chloride Carbon Dioxide BUN Creatinine Glucose POC Glucose 279 H 275 H Lactic Acid Calcium Phosphorus Magnesium AST ALT Alkaline Phosphatase C-Reactive Protein Total Protein Albumin Triglycerides Ur Specific [place] Urine Creatinine Crossmatch 06/19/21 06/19/21 06/19/21 18:30 19:20 23:27 WBC RBC Hgb 8.0 L Hct 25.0 L MCV MCH RDW Plt Count Lymph % (Auto) [place] % (Auto) Lymph # (Auto) [place] # (Auto) Seg Neutrophils % Seg Neuts % (Manual) Lymphocytes % (Manual) Monocytes % (Manual) Seg Neutrophils # Seg Neutrophils # Man Lymphocytes # (Manual) Monocytes # (Manual) PT INR APTT Fibrinogen D-Dimer ABG pH POC ABG pCO2 POC ABG pO2 ABG pO2 ABG HCO3 ABG O2 Saturation ABG Base Excess ABG Hemoglobin ABG Oxyhemoglobin Oxyhemoglobin Sodium Potassium Chloride Carbon Dioxide BUN Creatinine Glucose POC Glucose 279 H 290 H Lactic Acid Calcium Phosphorus Magnesium AST ALT Alkaline Phosphatase C-Reactive Protein Total Protein Albumin Triglycerides Ur Specific [place] Urine Creatinine Crossmatch 06/20/21 06/20/21 06/20/21 00:00 04:33 04:33 WBC 22.3 H RBC 3.31 L Hgb 7.4 L 8.5 L Hct 22.5 L 26.5 L MCV MCH 26 L RDW 21.5 H Plt Count Lymph % (Auto) [place] % (Auto) Lymph # (Auto) [place] # (Auto) Seg Neutrophils % Seg Neuts % (Manual) Lymphocytes % (Manual) Monocytes % (Manual) Seg Neutrophils # Seg Neutrophils # Man Lymphocytes # (Manual) Monocytes # (Manual) PT INR APTT Fibrinogen D-Dimer ABG pH POC ABG pCO2 POC ABG pO2 ABG pO2 ABG HCO3 ABG O2 Saturation ABG Base Excess ABG Hemoglobin ABG Oxyhemoglobin Oxyhemoglobin Sodium 148 H Potassium Chloride 114.2 H Carbon Dioxide BUN 70 H Creatinine 1.4 H Glucose 313 H POC Glucose Lactic Acid Calcium 8.2 L Phosphorus Magnesium 2.50 H AST ALT Alkaline Phosphatase C-Reactive Protein Total Protein Albumin Triglycerides Ur Specific [place] Urine Creatinine Crossmatch 06/20/21 06/20/21 06/20/21 04:33 05:27 11:21 WBC RBC Hgb Hct MCV MCH RDW Plt Count Lymph % (Auto) [place] % (Auto) Lymph # (Auto) [place] # (Auto) Seg Neutrophils % Seg Neuts % (Manual) Lymphocytes % (Manual) Monocytes % (Manual) Seg Neutrophils # Seg Neutrophils # Man Lymphocytes # (Manual) Monocytes # (Manual) PT 18.3 H INR 1.37 H APTT Fibrinogen D-Dimer ABG pH POC ABG pCO2 POC ABG pO2 ABG pO2 ABG HCO3 ABG O2 Saturation ABG Base Excess ABG Hemoglobin ABG Oxyhemoglobin Oxyhemoglobin Sodium Potassium Chloride Carbon Dioxide BUN Creatinine Glucose POC Glucose 288 H 306 H Lactic Acid Calcium Phosphorus Magnesium AST ALT Alkaline Phosphatase C-Reactive Protein Total Protein Albumin Triglycerides Ur Specific [place] Urine Creatinine Crossmatch 06/20/21 06/20/21 06/20/21 12:23 15:56 18:20 WBC RBC Hgb 8.2 L 8.1 L Hct 25.9 L 25.5 L MCV MCH RDW Plt Count Lymph % (Auto) [place] % (Auto) Lymph # (Auto) [place] # (Auto) Seg Neutrophils % Seg Neuts % (Manual) Lymphocytes % (Manual) Monocytes % (Manual) Seg Neutrophils # Seg Neutrophils # Man Lymphocytes # (Manual) Monocytes # (Manual) PT INR APTT Fibrinogen D-Dimer ABG pH POC ABG pCO2 POC ABG pO2 ABG pO2 ABG HCO3 ABG O2 Saturation ABG Base Excess ABG Hemoglobin ABG Oxyhemoglobin Oxyhemoglobin Sodium Potassium Chloride Carbon Dioxide BUN Creatinine Glucose POC Glucose 293 H Lactic Acid Calcium Phosphorus Magnesium AST ALT Alkaline Phosphatase C-Reactive Protein Total Protein Albumin Triglycerides Ur Specific [place] Urine Creatinine Crossmatch 06/20/21 06/21/21 06/21/21 23:11 04:20 04:42 WBC 15.1 H RBC 2.84 L Hgb 7.3 L Hct 23.1 L MCV MCH 26 L RDW 21.5 H Plt Count Lymph % (Auto) 3.5 L [place] % (Auto) 11.7 H Lymph # (Auto) 0.5 L [place] # (Auto) 1.8 H Seg Neutrophils % 84.7 H Seg Neuts % (Manual) Lymphocytes % (Manual) Monocytes % (Manual) Seg Neutrophils # 12.8 H Seg Neutrophils # Man Lymphocytes # (Manual) Monocytes # (Manual) PT INR APTT Fibrinogen D-Dimer ABG pH POC ABG pCO2 POC ABG pO2 ABG pO2 98.5 H ABG HCO3 ABG O2 Saturation ABG Base Excess ABG Hemoglobin 7.2 L ABG Oxyhemoglobin Oxyhemoglobin Sodium Potassium Chloride Carbon Dioxide BUN Creatinine Glucose POC Glucose 206 H Lactic Acid Calcium Phosphorus Magnesium AST ALT Alkaline Phosphatase C-Reactive Protein Total Protein Albumin Triglycerides Ur Specific [place] Urine Creatinine Crossmatch 06/21/21 06/21/21 06/21/21 04:42 05:08 11:06 WBC RBC Hgb Hct MCV MCH RDW Plt Count Lymph % (Auto) [place] % (Auto) Lymph # (Auto) [place] # (Auto) Seg Neutrophils % Seg Neuts % (Manual) Lymphocytes % (Manual) Monocytes % (Manual) Seg Neutrophils # Seg Neutrophils # Man Lymphocytes # (Manual) Monocytes # (Manual) PT INR APTT Fibrinogen D-Dimer ABG pH POC ABG pCO2 POC ABG pO2 ABG pO2 ABG HCO3 ABG O2 Saturation ABG Base Excess ABG Hemoglobin ABG Oxyhemoglobin Oxyhemoglobin Sodium 151 H Potassium Chloride 117.2 H Carbon Dioxide 21 L BUN 75 H Creatinine 1.6 H Glucose 216 H POC Glucose 190 H 204 H Lactic Acid Calcium 7.9 L Phosphorus Magnesium 2.60 H AST ALT Alkaline Phosphatase C-Reactive Protein Total Protein Albumin Triglycerides 254 H Ur Specific [place] Urine Creatinine Crossmatch 06/21/21 06/21/21 06/21/21 14:00 16:42 21:52 WBC RBC Hgb 7.1 L 7.2 L Hct 22.0 L 22.1 L MCV MCH RDW Plt Count Lymph % (Auto) [place] % (Auto) Lymph # (Auto) [place] # (Auto) Seg Neutrophils % Seg Neuts % (Manual) Lymphocytes % (Manual) Monocytes % (Manual) Seg Neutrophils # Seg Neutrophils # Man Lymphocytes # (Manual) Monocytes # (Manual) PT INR APTT Fibrinogen D-Dimer ABG pH POC ABG pCO2 POC ABG pO2 ABG pO2 ABG HCO3 ABG O2 Saturation ABG Base Excess ABG Hemoglobin ABG Oxyhemoglobin Oxyhemoglobin Sodium Potassium Chloride Carbon Dioxide BUN Creatinine Glucose POC Glucose 207 H Lactic Acid Calcium Phosphorus Magnesium AST ALT Alkaline Phosphatase C-Reactive Protein Total Protein Albumin Triglycerides Ur Specific [place] Urine Creatinine Crossmatch 06/21/21 06/22/21 06/22/21 23:29 04:30 04:30 WBC 16.8 H RBC 2.93 L Hgb 7.4 L Hct 23.9 L MCV MCH 25 L RDW 21.8 H Plt Count Lymph % (Auto) [place] % (Auto) Lymph # (Auto) [place] # (Auto) Seg Neutrophils % Seg Neuts % (Manual) Lymphocytes % (Manual) Monocytes % (Manual) Seg Neutrophils # Seg Neutrophils # Man Lymphocytes # (Manual) Monocytes # (Manual) PT INR APTT Fibrinogen D-Dimer ABG pH POC ABG pCO2 POC ABG pO2 ABG pO2 ABG HCO3 ABG O2 Saturation ABG Base Excess ABG Hemoglobin ABG Oxyhemoglobin Oxyhemoglobin Sodium 151 H Potassium Chloride 118.7 H Carbon Dioxide BUN 57 H Creatinine Glucose 238 H POC Glucose 273 H Lactic Acid Calcium 8.0 L Phosphorus Magnesium 2.70 H AST ALT Alkaline Phosphatase C-Reactive Protein Total Protein Albumin Triglycerides Ur Specific [place] Urine Creatinine Crossmatch 06/22/21 06/22/21 06/22/21 05:17 11:31 14:20 WBC RBC Hgb 7.4 L Hct 22.5 L MCV MCH RDW Plt Count Lymph % (Auto) [place] % (Auto) Lymph # (Auto) [place] # (Auto) Seg Neutrophils % Seg Neuts % (Manual) Lymphocytes % (Manual) Monocytes % (Manual) Seg Neutrophils # Seg Neutrophils # Man Lymphocytes # (Manual) Monocytes # (Manual) PT INR APTT Fibrinogen D-Dimer ABG pH POC ABG pCO2 POC ABG pO2 ABG pO2 ABG HCO3 ABG O2 Saturation ABG Base Excess ABG Hemoglobin ABG Oxyhemoglobin Oxyhemoglobin Sodium Potassium Chloride Carbon Dioxide BUN Creatinine Glucose POC Glucose 214 H 214 H Lactic Acid Calcium Phosphorus Magnesium AST ALT Alkaline Phosphatase C-Reactive Protein Total Protein Albumin Triglycerides Ur Specific [place] Urine Creatinine Crossmatch 06/22/21 06/22/21 06/23/21 17:18 23:47 05:33 WBC RBC Hgb Hct MCV MCH RDW Plt Count Lymph % (Auto) [place] % (Auto) Lymph # (Auto) [place] # (Auto) Seg Neutrophils % Seg Neuts % (Manual) Lymphocytes % (Manual) Monocytes % (Manual) Seg Neutrophils # Seg Neutrophils # Man Lymphocytes # (Manual) Monocytes # (Manual) PT INR APTT Fibrinogen D-Dimer ABG pH POC ABG pCO2 POC ABG pO2 ABG pO2 ABG HCO3 ABG O2 Saturation ABG Base Excess ABG Hemoglobin ABG Oxyhemoglobin Oxyhemoglobin Sodium Potassium Chloride Carbon Dioxide BUN Creatinine Glucose POC Glucose 238 H 227 H 202 H Lactic Acid Calcium Phosphorus Magnesium AST ALT Alkaline Phosphatase C-Reactive Protein Total Protein Albumin Triglycerides Ur Specific [place] Urine Creatinine Crossmatch 06/23/21 06/23/21 06/23/21 10:04 10:04 11:06 WBC 20.3 H RBC 2.71 L Hgb 7.3 L Hct 21.8 L MCV MCH 27 L RDW 22.1 H Plt Count Lymph % (Auto) [place] % (Auto) Lymph # (Auto) [place] # (Auto) Seg Neutrophils % Seg Neuts % (Manual) Lymphocytes % (Manual) Monocytes % (Manual) Seg Neutrophils # Seg Neutrophils # Man Lymphocytes # (Manual) Monocytes # (Manual) PT INR APTT Fibrinogen D-Dimer ABG pH POC ABG pCO2 POC ABG pO2 ABG pO2 ABG HCO3 ABG O2 Saturation ABG Base Excess ABG Hemoglobin ABG Oxyhemoglobin Oxyhemoglobin Sodium 151 H Potassium 3.2 L Chloride 116.9 H Carbon Dioxide BUN 40 H Creatinine Glucose 208 H POC Glucose 204 H Lactic Acid Calcium 8.0 L Phosphorus 1.80 L D Magnesium AST ALT Alkaline Phosphatase C-Reactive Protein Total Protein Albumin Triglycerides Ur Specific [place] Urine Creatinine Crossmatch 06/23/21 06/23/21 06/24/21 16:11 23:47 04:00 WBC 16.9 H RBC 2.49 L Hgb 6.6 L Hct 20.3 L MCV MCH 26 L RDW 22.6 H Plt Count Lymph % (Auto) [place] % (Auto) Lymph # (Auto) [place] # (Auto) Seg Neutrophils % Seg Neuts % (Manual) Lymphocytes % (Manual) Monocytes % (Manual) Seg Neutrophils # Seg Neutrophils # Man Lymphocytes # (Manual) Monocytes # (Manual) PT INR APTT Fibrinogen D-Dimer ABG pH POC ABG pCO2 POC ABG pO2 ABG pO2 ABG HCO3 ABG O2 Saturation ABG Base Excess ABG Hemoglobin ABG Oxyhemoglobin Oxyhemoglobin Sodium Potassium Chloride Carbon Dioxide BUN Creatinine Glucose POC Glucose 228 H 189 H Lactic Acid Calcium Phosphorus Magnesium AST ALT Alkaline Phosphatase C-Reactive Protein Total Protein Albumin Triglycerides Ur Specific [place] Urine Creatinine Crossmatch 06/24/21 06/24/21 06/24/21 04:00 05:43 06:40 WBC RBC Hgb Hct MCV MCH RDW Plt Count Lymph % (Auto) [place] % (Auto) Lymph # (Auto) [place] # (Auto) Seg Neutrophils % Seg Neuts % (Manual) Lymphocytes % (Manual) Monocytes % (Manual) Seg Neutrophils # Seg Neutrophils # Man Lymphocytes # (Manual) Monocytes # (Manual) PT INR APTT Fibrinogen D-Dimer ABG pH POC ABG pCO2 POC ABG pO2 ABG pO2 ABG HCO3 ABG O2 Saturation ABG Base Excess ABG Hemoglobin ABG Oxyhemoglobin Oxyhemoglobin Sodium 148 H Potassium 3.2 L Chloride 115.6 H Carbon Dioxide BUN 35 H Creatinine Glucose 153 H POC Glucose 134 H Lactic Acid Calcium 7.9 L Phosphorus 2.40 L D Magnesium AST ALT Alkaline Phosphatase C-Reactive Protein Total Protein Albumin Triglycerides Ur Specific [place] Urine Creatinine Crossmatch See Detail 06/24/21 06/24/21 06/24/21 11:08 16:47 21:49 WBC RBC Hgb Hct MCV MCH RDW Plt Count Lymph % (Auto) [place] % (Auto) Lymph # (Auto) [place] # (Auto) Seg Neutrophils % Seg Neuts % (Manual) Lymphocytes % (Manual) Monocytes % (Manual) Seg Neutrophils # Seg Neutrophils # Man Lymphocytes # (Manual) Monocytes # (Manual) PT INR APTT Fibrinogen D-Dimer ABG pH POC ABG pCO2 POC ABG pO2 ABG pO2 ABG HCO3 ABG O2 Saturation ABG Base Excess ABG Hemoglobin ABG Oxyhemoglobin Oxyhemoglobin Sodium Potassium Chloride Carbon Dioxide BUN Creatinine Glucose POC Glucose 153 H 201 H 132 H Lactic Acid Calcium Phosphorus Magnesium AST ALT Alkaline Phosphatase C-Reactive Protein Total Protein Albumin Triglycerides Ur Specific [place] Urine Creatinine Crossmatch 06/24/21 06/25/21 06/25/21 23:24 05:30 09:00 WBC RBC Hgb 8.3 L Hct 27.0 L MCV MCH RDW Plt Count Lymph % (Auto) [place] % (Auto) Lymph # (Auto) [place] # (Auto) Seg Neutrophils % Seg Neuts % (Manual) Lymphocytes % (Manual) Monocytes % (Manual) Seg Neutrophils # Seg Neutrophils # Man Lymphocytes # (Manual) Monocytes # (Manual) PT INR APTT Fibrinogen D-Dimer ABG pH POC ABG pCO2 POC ABG pO2 ABG pO2 ABG HCO3 ABG O2 Saturation ABG Base Excess ABG Hemoglobin ABG Oxyhemoglobin Oxyhemoglobin Sodium Potassium Chloride Carbon Dioxide BUN Creatinine Glucose POC Glucose 170 H 151 H Lactic Acid Calcium Phosphorus Magnesium AST ALT Alkaline Phosphatase C-Reactive Protein Total Protein Albumin Triglycerides Ur Specific [place] Urine Creatinine Crossmatch 06/25/21 06/25/21 06/25/21 11:29 14:24 16:48 WBC RBC Hgb 8.5 L Hct 27.5 L MCV MCH RDW Plt Count Lymph % (Auto) [place] % (Auto) Lymph # (Auto) [place] # (Auto) Seg Neutrophils % Seg Neuts % (Manual) Lymphocytes % (Manual) Monocytes % (Manual) Seg Neutrophils # Seg Neutrophils # Man Lymphocytes # (Manual) Monocytes # (Manual) PT INR APTT Fibrinogen D-Dimer ABG pH POC ABG pCO2 POC ABG pO2 ABG pO2 ABG HCO3 ABG O2 Saturation ABG Base Excess ABG Hemoglobin ABG Oxyhemoglobin Oxyhemoglobin Sodium Potassium Chloride Carbon Dioxide BUN Creatinine Glucose POC Glucose 189 H 224 H Lactic Acid Calcium Phosphorus Magnesium AST ALT Alkaline Phosphatase C-Reactive Protein Total Protein Albumin Triglycerides Ur Specific [place] Urine Creatinine Crossmatch 06/25/21 06/25/21 06/25/21 23:39 Unknown Unknown WBC 16.5 H RBC 2.90 L Hgb 8.0 L Hct 23.8 L MCV MCH RDW 22.8 H Plt Count Lymph % (Auto) [place] % (Auto) Lymph # (Auto) [place] # (Auto) Seg Neutrophils % Seg Neuts % (Manual) Lymphocytes % (Manual) Monocytes % (Manual) Seg Neutrophils # Seg Neutrophils # Man Lymphocytes # (Manual) Monocytes # (Manual) PT INR APTT Fibrinogen D-Dimer ABG pH POC ABG pCO2 POC ABG pO2 ABG pO2 ABG HCO3 ABG O2 Saturation ABG Base Excess ABG Hemoglobin ABG Oxyhemoglobin Oxyhemoglobin Sodium 149 H Potassium Chloride 115.6 H Carbon Dioxide BUN 28 H Creatinine Glucose 157 H POC Glucose 187 H Lactic Acid Calcium 8.0 L Phosphorus Magnesium AST ALT Alkaline Phosphatase C-Reactive Protein Total Protein Albumin Triglycerides Ur Specific [place] Urine Creatinine Crossmatch 06/26/21 06/26/21 06/26/21 05:22 05:29 05:29 WBC 16.2 H RBC 3.03 L Hgb 8.0 L Hct 25.1 L MCV MCH 26 L RDW 23.2 H Plt Count Lymph % (Auto) [place] % (Auto) Lymph # (Auto) [place] # (Auto) Seg Neutrophils % Seg Neuts % (Manual) Lymphocytes % (Manual) Monocytes % (Manual) Seg Neutrophils # Seg Neutrophils # Man Lymphocytes # (Manual) Monocytes # (Manual) PT INR APTT Fibrinogen D-Dimer ABG pH POC ABG pCO2 POC ABG pO2 ABG pO2 ABG HCO3 ABG O2 Saturation ABG Base Excess ABG Hemoglobin ABG Oxyhemoglobin Oxyhemoglobin Sodium 150 H Potassium Chloride 114.8 H Carbon Dioxide BUN 29 H Creatinine Glucose 229 H POC Glucose 211 H Lactic Acid Calcium 8.2 L Phosphorus Magnesium AST ALT Alkaline Phosphatase C-Reactive Protein Total Protein Albumin Triglycerides Ur Specific [place] Urine Creatinine Crossmatch 06/26/21 06/26/21 06/26/21 11:05 15:59 22:00 WBC RBC Hgb Hct MCV MCH RDW Plt Count Lymph % (Auto) [place] % (Auto) Lymph # (Auto) [place] # (Auto) Seg Neutrophils % Seg Neuts % (Manual) Lymphocytes % (Manual) Monocytes % (Manual) Seg Neutrophils # Seg Neutrophils # Man Lymphocytes # (Manual) Monocytes # (Manual) PT INR APTT Fibrinogen D-Dimer ABG pH POC ABG pCO2 POC ABG pO2 ABG pO2 ABG HCO3 ABG O2 Saturation ABG Base Excess ABG Hemoglobin ABG Oxyhemoglobin Oxyhemoglobin Sodium Potassium Chloride Carbon Dioxide BUN Creatinine Glucose POC Glucose 213 H 222 H 161 H Lactic Acid Calcium Phosphorus Magnesium AST ALT Alkaline Phosphatase C-Reactive Protein Total Protein Albumin Triglycerides Ur Specific [place] Urine Creatinine Crossmatch 06/26/21 06/27/21 06/27/21 23:24 04:15 04:15 WBC 14.3 H RBC 2.96 L Hgb 8.1 L Hct 24.6 L MCV MCH 27 L RDW 23.0 H Plt Count Lymph % (Auto) [place] % (Auto) Lymph # (Auto) [place] # (Auto) Seg Neutrophils % Seg Neuts % (Manual) Lymphocytes % (Manual) Monocytes % (Manual) Seg Neutrophils # Seg Neutrophils # Man Lymphocytes # (Manual) Monocytes # (Manual) PT INR APTT Fibrinogen D-Dimer ABG pH POC ABG pCO2 POC ABG pO2 ABG pO2 ABG HCO3 ABG O2 Saturation ABG Base Excess ABG Hemoglobin ABG Oxyhemoglobin Oxyhemoglobin Sodium 150 H Potassium Chloride 113.8 H Carbon Dioxide BUN 26 H Creatinine Glucose 246 H POC Glucose 164 H Lactic Acid Calcium 7.8 L Phosphorus Magnesium AST ALT Alkaline Phosphatase C-Reactive Protein Total Protein Albumin Triglycerides Ur Specific [place] Urine Creatinine Crossmatch 06/27/21 06/27/21 06/27/21 05:44 11:07 16:06 WBC RBC Hgb Hct MCV MCH RDW Plt Count Lymph % (Auto) [place] % (Auto) Lymph # (Auto) [place] # (Auto) Seg Neutrophils % Seg Neuts % (Manual) Lymphocytes % (Manual) Monocytes % (Manual) Seg Neutrophils # Seg Neutrophils # Man Lymphocytes # (Manual) Monocytes # (Manual) PT INR APTT Fibrinogen D-Dimer ABG pH POC ABG pCO2 POC ABG pO2 ABG pO2 ABG HCO3 ABG O2 Saturation ABG Base Excess ABG Hemoglobin ABG Oxyhemoglobin Oxyhemoglobin Sodium Potassium Chloride Carbon Dioxide BUN Creatinine Glucose POC Glucose 226 H 204 H 224 H Lactic Acid Calcium Phosphorus Magnesium AST ALT Alkaline Phosphatase C-Reactive Protein Total Protein Albumin Triglycerides Ur Specific [place] Urine Creatinine Crossmatch 06/27/21 06/28/21 06/28/21 23:49 04:00 04:00 WBC 15.4 H RBC 3.05 L Hgb 8.2 L Hct 25.0 L MCV MCH 27 L RDW 22.6 H Plt Count Lymph % (Auto) [place] % (Auto) Lymph # (Auto) [place] # (Auto) Seg Neutrophils % Seg Neuts % (Manual) Lymphocytes % (Manual) Monocytes % (Manual) Seg Neutrophils # Seg Neutrophils # Man Lymphocytes # (Manual) Monocytes # (Manual) PT INR APTT Fibrinogen D-Dimer ABG pH POC ABG pCO2 POC ABG pO2 ABG pO2 ABG HCO3 ABG O2 Saturation ABG Base Excess ABG Hemoglobin ABG Oxyhemoglobin Oxyhemoglobin Sodium 152 H Potassium 3.0 L Chloride 114.9 H Carbon Dioxide BUN 24 H Creatinine Glucose 158 H POC Glucose 195 H Lactic Acid Calcium 8.1 L Phosphorus Magnesium AST ALT Alkaline Phosphatase C-Reactive Protein Total Protein Albumin Triglycerides Ur Specific [place] Urine Creatinine Crossmatch 06/28/21 06/28/21 06/28/21 05:05 11:47 17:21 WBC RBC Hgb Hct MCV MCH RDW Plt Count Lymph % (Auto) [place] % (Auto) Lymph # (Auto) [place] # (Auto) Seg Neutrophils % Seg Neuts % (Manual) Lymphocytes % (Manual) Monocytes % (Manual) Seg Neutrophils # Seg Neutrophils # Man Lymphocytes # (Manual) Monocytes # (Manual) PT INR APTT Fibrinogen D-Dimer ABG pH POC ABG pCO2 POC ABG pO2 ABG pO2 ABG HCO3 ABG O2 Saturation ABG Base Excess ABG Hemoglobin ABG Oxyhemoglobin Oxyhemoglobin Sodium Potassium Chloride Carbon Dioxide BUN Creatinine Glucose POC Glucose 121 H 164 H 166 H Lactic Acid Calcium Phosphorus Magnesium AST ALT Alkaline Phosphatase C-Reactive Protein Total Protein Albumin Triglycerides Ur Specific [place] Urine Creatinine Crossmatch 06/28/21 06/28/21 06/29/21 18:14 21:54 00:55 WBC RBC Hgb Hct MCV MCH RDW Plt Count Lymph % (Auto) [place] % (Auto) Lymph # (Auto) [place] # (Auto) Seg Neutrophils % Seg Neuts % (Manual) Lymphocytes % (Manual) Monocytes % (Manual) Seg Neutrophils # Seg Neutrophils # Man Lymphocytes # (Manual) Monocytes # (Manual) PT INR APTT Fibrinogen D-Dimer ABG pH POC ABG pCO2 POC ABG pO2 ABG pO2 ABG HCO3 ABG O2 Saturation ABG Base Excess ABG Hemoglobin ABG Oxyhemoglobin Oxyhemoglobin Sodium Potassium Chloride Carbon Dioxide BUN Creatinine Glucose POC Glucose 150 H 148 H 176 H Lactic Acid Calcium Phosphorus Magnesium AST ALT Alkaline Phosphatase C-Reactive Protein Total Protein Albumin Triglycerides Ur Specific [place] Urine Creatinine Crossmatch 06/29/21 06/29/21 06/29/21 04:00 04:00 05:20 WBC 15.3 H RBC 3.04 L Hgb 8.0 L Hct 25.0 L MCV MCH 26 L RDW 22.3 H Plt Count Lymph % (Auto) [place] % (Auto) Lymph # (Auto) [place] # (Auto) Seg Neutrophils % Seg Neuts % (Manual) Lymphocytes % (Manual) Monocytes % (Manual) Seg Neutrophils # Seg Neutrophils # Man Lymphocytes # (Manual) Monocytes # (Manual) PT INR APTT Fibrinogen D-Dimer ABG pH POC ABG pCO2 POC ABG pO2 ABG pO2 ABG HCO3 ABG O2 Saturation ABG Base Excess ABG Hemoglobin ABG Oxyhemoglobin Oxyhemoglobin Sodium Potassium 3.1 L Chloride 108.7 H Carbon Dioxide BUN 20 H Creatinine Glucose 194 H POC Glucose 185 H Lactic Acid Calcium 8.0 L Phosphorus Magnesium AST ALT Alkaline Phosphatase C-Reactive Protein Total Protein Albumin Triglycerides Ur Specific [place] Urine Creatinine Crossmatch 06/29/21 06/29/21 06/30/21 12:18 17:20 00:49 WBC RBC Hgb Hct MCV MCH RDW Plt Count Lymph % (Auto) [place] % (Auto) Lymph # (Auto) [place] # (Auto) Seg Neutrophils % Seg Neuts % (Manual) Lymphocytes % (Manual) Monocytes % (Manual) Seg Neutrophils # Seg Neutrophils # Man Lymphocytes # (Manual) Monocytes # (Manual) PT INR APTT Fibrinogen D-Dimer ABG pH POC ABG pCO2 POC ABG pO2 ABG pO2 ABG HCO3 ABG O2 Saturation ABG Base Excess ABG Hemoglobin ABG Oxyhemoglobin Oxyhemoglobin Sodium Potassium Chloride Carbon Dioxide BUN Creatinine Glucose POC Glucose 135 H 185 H 156 H Lactic Acid Calcium Phosphorus Magnesium AST ALT Alkaline Phosphatase C-Reactive Protein Total Protein Albumin Triglycerides Ur Specific [place] Urine Creatinine Crossmatch 06/30/21 06/30/21 06/30/21 04:25 04:25 08:14 WBC 13.0 H RBC 3.19 L Hgb 8.2 L Hct 26.2 L MCV MCH 26 L RDW 22.3 H Plt Count Lymph % (Auto) [place] % (Auto) Lymph # (Auto) [place] # (Auto) Seg Neutrophils % Seg Neuts % (Manual) Lymphocytes % (Manual) Monocytes % (Manual) Seg Neutrophils # Seg Neutrophils # Man Lymphocytes # (Manual) Monocytes # (Manual) PT INR APTT Fibrinogen D-Dimer ABG pH POC ABG pCO2 POC ABG pO2 ABG pO2 ABG HCO3 ABG O2 Saturation ABG Base Excess ABG Hemoglobin ABG Oxyhemoglobin Oxyhemoglobin Sodium Potassium 3.0 L Chloride Carbon Dioxide BUN 20 H Creatinine Glucose 104 H POC Glucose 119 H Lactic Acid Calcium 8.3 L Phosphorus Magnesium AST ALT Alkaline Phosphatase C-Reactive Protein Total Protein Albumin Triglycerides Ur Specific [place] Urine Creatinine Crossmatch
[2021-06-30 11:16] LABS: Anisocytosis 1+; Basophils % (Manual) 0 % (0.0-1.8); Hypochromasia 1+; Total Cells Counted 100
[2021-06-30 11:17] LABS: Large Platelets Few
[2021-06-30 11:23] LABS: Platelet Estimate Consistent w Auto; Target Cells Rare; Tear Drop Cells Few
[2021-06-30] MEDS: POTASSIUM CHLORIDE 20 MEQ PACKET PO SCH ×2 (11:37→13:36)
[2021-06-30] MEDS: INSULIN GLARGINE 100 UNITS/ML SUB-Q SCH (22:45)
[2021-06-30] MEDS: ENOXAPARIN 40 MG/0.4 ML INJ SUB-Q SCH (22:46)
[2021-07-01] MEDS: PIPERACIL/TAZOBACTA 4.5/NS 100 4.5 GM/100 ML VIAL IV SCH ×5 (02:05→23:24)
[2021-07-01 06:28] LABS: Hematocrit 24.4 % (30.3-42.9); Hemoglobin 8.1 gm/dl (10.1-14.3); Mean Corpuscular HGB Conc 33 % (30-34); Mean Corpuscular Volume 82 fl (79-97); Platelet Count 165 K/mm3 (140-440)
[2021-07-01 06:31] LABS: Red Cell Distribution Width 21.7 % (13.2-15.2)
[2021-07-01 06:32] LABS: BUN/Creatinine Ratio 18; Blood Urea Nitrogen 16 mg/dL (7-17); Calcium 8.5 mg/dL (8.4-10.2); Hemolysis Index 6
[2021-07-01] MEDS: INSULIN LISPRO 100 UNIT/ML SUB-Q SCH ×4 (06:45→23:39)
[2021-07-01] MEDS: hydrALAZINE 100 MG TAB FEEDTUBE SCH ×4 (06:45→22:58)
--- NOTE | 2021-07-01 08:08 | Progress Note ---
Assessment and Plan Doing well from airway issues. Lack of movement of extremities is of some concern. Consider neurology consult and pt ot for maintenance of rom/ splinting in positions to avoid contractures. Subjective Date of service: 07/01/21 Patient Reports: Positive: no new complaints Narrative: Patient is moving her hands and feet to commands but is extremely weak at this time. Would favor physical therapy and occupational therapy at this time. Patient may need discharge to a rehab center for continued strength. Objective Vital Signs - 12hr 06/30/21 06/30/21 06/30/21 21:28 22:00 23:06 Temperature 98.5 F Pulse Rate 91 H Pulse Rate [ From Monitor] Respiratory 18 Rate Respiratory 20 Rate [Bilateral Generalized] Blood Pressure 151/76 O2 Sat by Pulse 98 100 Oximetry O2 Sat by Pulse Oximetry [ Assessment] 07/01/21 07/01/21 07/01/21 00:00 04:00 04:11 Temperature Pulse Rate 91 H Pulse Rate [ 98 H 98 H From Monitor] Respiratory 23 23 Rate Respiratory Rate [Bilateral Generalized] Blood Pressure O2 Sat by Pulse 100 100 Oximetry O2 Sat by Pulse Oximetry [ Assessment] 07/01/21 07/01/21 04:12 04:35 Temperature 97.4 F L Pulse Rate 90 Pulse Rate [ From Monitor] Respiratory 20 Rate Respiratory Rate [Bilateral Generalized] Blood Pressure 143/87 O2 Sat by Pulse 97 Oximetry O2 Sat by Pulse 98 Oximetry [ Assessment] - Labs 07/01/21 05:29 07/01/21 05:29 Diabetes panel 06/30/21 06/30/21 07/01/21 Range/Units 04:25 18:26 05:29 Sodium 140 143 (137-145) mmol/L Potassium 3.0 L 3.8 D 3.7 (3.6-5.0) mmol/L Chloride 105.0 106.3 (98-107) mmol/L Carbon Dioxide 25 27 (22-30) mmol/L BUN 20 H 16 (7-17) mg/dL Creatinine 0.7 0.9 (0.6-1.2) mg/dL Glucose 104 H 177 H (65-100) mg/dL Calcium 8.3 L 8.5 (8.4-10.2) mg/dL Calcium panel 06/30/21 07/01/21 Range/Units 04:25 05:29 Calcium 8.3 L 8.5 (8.4-10.2) mg/dL Phosphorus 2.70 (2.5-4.5) mg/dL Pituitary panel 06/30/21 06/30/21 07/01/21 Range/Units 04:25 18:26 05:29 Sodium 140 143 (137-145) mmol/L Potassium 3.0 L 3.8 D 3.7 (3.6-5.0) mmol/L Chloride 105.0 106.3 (98-107) mmol/L Carbon Dioxide 25 27 (22-30) mmol/L BUN 20 H 16 (7-17) mg/dL Creatinine 0.7 0.9 (0.6-1.2) mg/dL Glucose 104 H 177 H (65-100) mg/dL Calcium 8.3 L 8.5 (8.4-10.2) mg/dL Adrenal panel 06/30/21 06/30/21 07/01/21 Range/Units 04:25 18:26 05:29 Sodium 140 143 (137-145) mmol/L Potassium 3.0 L 3.8 D 3.7 (3.6-5.0) mmol/L Chloride 105.0 106.3 (98-107) mmol/L Carbon Dioxide 25 27 (22-30) mmol/L BUN 20 H 16 (7-17) mg/dL Creatinine 0.7 0.9 (0.6-1.2) mg/dL Glucose 104 H 177 H (65-100) mg/dL Calcium 8.3 L 8.5 (8.4-10.2) mg/dL
[2021-07-01] MEDS: FAMOTIDINE 20 MG TAB FEEDTUBE SCH ×2 (11:00→21:22)
[2021-07-01] MEDS: amLODIPine 5 MG TAB PO SCH (11:11)
[2021-07-01] MEDS: DOCUSATE SODIUM 100 MG/10 ML ORAL LIQD PO SCH ×2 (11:12→21:21)
[2021-07-01] MEDS: SENNOSIDES ORAL LIQD 8.8 MG/5 ML ORAL LIQD PO SCH ×2 (11:13→21:28)
[2021-07-01] MEDS: HYDROmorphone 1 MG/1 ML INJ IV PRN (11:21)
--- NOTE | 2021-07-01 12:27 | Progress Note ---
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 07/01/21: Continue T-piece. Follow up speech recs. Follow up electrolytes. PT/OT. Stable for transfer when bed available 06/30/21: Aggressive replacement of electrolytes. Will repeat chemistry tonight around 8. please call for orders as we would like to keep her K at 4 and Mag at 2. Chemistry in the am. Stable for transfer to telemetry floor. 06/29/21: Speech did see but patient had decreased voice quality and increased wob so aborted. Will ask them to assess again on Thursday. Chest tube out and ordered follow up CXR. Stable for transfer but ok with continuing monitoring in ICU. If bed needed could go to step down. 06/28/21: monitor drainage in ICU for 24 more hours. Can likely come out tomorrow. Continue in ICU for now. Once chest tube out, no objection to transfer. 06/27/21: Will place chest tube to water seal. Instructed staff if any change in respiratory status, place back on suction and obtain CXR. Otherwise will leave off. Continue T-piece as tolerated. Rehab/intermediate/LTACH appropriate. STable for transfer if and when bed becomes available. 06/26/21: T-piece today. If off the vent, agree with surgery and removal of chest tube as subq emphysema is improving as well. PT has seen suggested LTACH, however if we are able to wean she may need intermediate/rehab. Prognosis continues to improve. 06/25/21: Continue PSV as tolerated. Hopeful T-piece in the next 24-48 hours. Will drop steroids down further on . Can switch to daily and even change to oral. PT/OT consult, and follow up recs. May need LTACH vs rehab vs both. Continue to follow. 06/24/21: Daily PSV trials. Maybe ready for T-piece sson. Continue to wean steroids to off. IMS changed to 40q12 which is fine. Continue chest tube until off vent. Still on list for [facility] but will discuss with about checking into LTACH as patient will need rehab. PT/OT consult. 06/21/21: Continue current level of sedation. Chest tube does not have air leak but there is clear evidence of a PTX on right. Stripped tube at bedside and will repeat CXR in the morning. Hold on weaning sedation for now and hold on PSV trials. May need second chest tube vs vats if PTX worsens or does not resolve. Patient still on list for [facility], hopeful they will have a bed soon. Drop steroids to 40q8 starting Thursday. Monitor renal function, likely will improve. Needs more free water. Prognosis still remains guarded. 06/20/21: Restart some sedation. At least pain and maybe diprovan. Would like to wake patient up at some point and attempt some PSV trials. Labs are off this am. Large bump in white count but no fever, also no diff drawn. Could be error vs steroid related but this is in just 24 hours. Will repeat tomorrow. If spikes a temp neves culture as well. Small bump in Cr but still in normal range. Will watch. Now that peg in place, tube feeds and free water flushes. Still on list for [place]. Patient has been steroids greater than 7 days so will have to wean. Can drop to 60q8 starting tomorrow. Prognosis still remains guarded. 06/19/21: surgery to attempt trach and peg today. Still will ask to keep on transfer list for [place] as her other issues still need to be addressed. If able to place peg, can stop clinimix, give free water and start tube feeds. Prognosis remains guarded. pH better with drop in tidal volume. 06/18/21: [facility] has agreed to accept but no ICU beds available at this time. Spoke with Dr. Vasquez yesterday and Dr. Patricia spoke with ENT there. Spoke with RT this am and patient did have a leak when cuff let down and her tidal volumes dropped to below 100. Patient remains on abx and steriods. Will consider lightening sedation tomorrow and seeing how patient does if cuff leak persists. Dropped tidal volumes to 450. Continue PPN for now. 06/17/21: spoke with surgery and they feel transfer is reasonable. I have reached out to [facility] and [facility] has spoken with someone from [place]. Await to hear back from them. Continue supportive measures and adequate sedation for pain control. No PSV trials as of yet. Blood sugar control, increase lantus. Most likely secondary to steroids. Continue abx therapy. Guarded prognosis. 06/16/21: Renal function improved with fluids. IMS to give more fluids (LR) today which I agree with. FeNa is =0.7. Should be fluid responsive. Continue clinimix. Needs long acting insulin. Agree with lantus. Asked nursing to increase sedation now that we know that patient's mental status is stable. Picc today. Air leak test vs Neck CT on tomorrow. 06/15/21: Hopeful with worsening renal function ( likely from code on yesterday) that sedatives are just lingering from that. Still making good urine but output has fallen off. Will send urine sodium and urine cr to check Fena. Most likely this is prerenal. ordered renal ultrasound as well. Continue abx and steroids. Will start clinimix today. This should help with the free water piece. Will give another liter bolus of LR right now. Keep sedation off for now. Guarded prognosis. 06/14/21: Will discuss with surgery future plans. They have ordered steroids to help with inflammation and abx continue. All others appears stable and no acute evidence of bleeding at this time. Follow up surgery recs if any new ones. Gu arded prognosis. 06/13/21: Patient to back to OR today. BLood transfusion. Will send DIC panel and may need to given cryo if over 6 units of PRBC's given. Patient will likely need trach and peg as we need to address nutrition. Chest tube placed, large bore now. Patient now with right sided effusion. Hemothorax???. Will continue to monitor output. Needs picc line as femoral should come out soon. Continue pressors. Continue sedation for pain control and comfort. Guarded prognosis. Surgery comfortable with neck and current situation so they have not request transfer. 1. Placed right femoral central line. pressors can run through this. 2. Repeat chemistry stat given bicarb of 8 and blood sugar of greater than 600. Ordering FSBS now. Earlier bicarb was 25. If accurate will need bicarb drip and vasopressin but not sure as pH on blood gas was normal done around the same time. 3. Coagulopathy is improving. INR down to 4.55 and PTT and pT improving. Will continue to give FFP. Ordered more vitamin K. H/H is stable but patient is oozing from neck and mouth. 4. Vasopressor for blood pressure. Need to keep map 65 and greater 5. Lujan is needed for accurate I/O 6. Surgery called by IMS about current CT situation. They state they will reassess in the am. I have reviewed the images myself. If I can position the patient safely without compromising the airway after adequate sedation, may consider placing chest tube now as INR is better and FFP is hanging. Patient is morbidly obese so shits could move the ET tube so if not safe, will wait until surgery comes in the morning. 7. Would not attempt to pass OG or NG tube given current situation in neck 8. Will discuss with surgery tomorrow but I feel this patient should be transferred to a tertiary care facility with ENT as we do not have that service here. CCT 31 minutes. Subjective Date of service: 07/01/21 Interval history: No acute events. Successful transfer out of the unit. Stable on T-piece. Objective Vital Signs - 12hr 07/01/21 07/01/21 07/01/21 04:00 04:11 04:12 Temperature Pulse Rate 91 H Pulse Rate [ 98 H From Monitor] Respiratory 23 Rate Blood Pressure O2 Sat by Pulse 100 Oximetry O2 Sat by Pulse 98 Oximetry [ Assessment] 07/01/21 07/01/21 07/01/21 04:35 07:58 08:00 Temperature 97.4 F L 98.2 F Pulse Rate 90 Pulse Rate [ From Monitor] Respiratory 20 16 Rate Blood Pressure 143/87 189/55 O2 Sat by Pulse 97 Oximetry O2 Sat by Pulse 99 Oximetry [ Assessment] 07/01/21 07/01/21 08:47 11:11 Temperature Pulse Rate 75 Pulse Rate [ From Monitor] Respiratory Rate Blood Pressure 169/73 O2 Sat by Pulse 99 Oximetry O2 Sat by Pulse Oximetry [ Assessment] Constitutional: alert, other (on vent trach in place) Eyes: non-icteric ENT: oropharynx moist Neck: other (trach in place) Ascultation: Bilateral: clear Percussion: Bilateral: not dull Cardiovascular: regular rate and rhythm Gastrointestinal: normoactive bowel sounds, soft Integumentary: other (subq emphysema) Extremities: no edema, other (subq emphysema) Neurologic: normal mental status CBC and BMP: 07/08/21 04:20 07/08/21 04:20 ABG, PT/INR, D-dimer: ABG ABG pH 7.426 pH Units (7.350-7.450) 06/21/21 04:20 POC ABG pCO2 25.6 mmHg (32.0-48.0) L 06/13/21 04:31 ABG pCO2 35.1 mm Hg 06/21/21 04:20 POC ABG pO2 138.8 mmHg (83-108) H 06/13/21 04:31 ABG pO2 98.5 mm Hg (80.0-90.0) H 06/21/21 04:20 POC ABG HCO3 21.4 06/13/21 04:31 ABG O2 Saturation 97.7 % (95.0-99.0) 06/21/21 04:20 PT/INR, D-dimer PT 18.3 Sec. (12.2-14.9) H 06/20/21 04:33 INR 1.37 (0.87-1.13) H 06/20/21 04:33 D-Dimer 1244.63 ng/mlDDU (0-234) H 06/13/21 Unknown Abnormal lab findings: Abnormal Labs 06/11/21 06/11/21 06/11/21 15:23 15:23 19:20 WBC 12.0 H RBC Hgb Hct MCV 72 L MCH 21 L RDW 17.5 H Plt Count Lymph % (Auto) 12.9 L Weber % (Auto) 8.6 H Lymph # (Auto) Weber # (Auto) 1.0 H Seg Neutrophils % 77.4 H Seg Neuts % (Manual) Lymphocytes % (Manual) Monocytes % (Manual) Seg Neutrophils # 9.3 H Seg Neutrophils # Man Lymphocytes # (Manual) Monocytes # (Manual) PT INR APTT Fibrinogen D-Dimer ABG pH POC ABG pCO2 POC ABG pO2 ABG pO2 ABG HCO3 ABG O2 Saturation ABG Base Excess ABG Hemoglobin ABG Oxyhemoglobin Oxyhemoglobin Sodium Potassium Chloride Carbon Dioxide BUN Creatinine Glucose 144 H POC Glucose Lactic Acid Calcium Phosphorus Magnesium AST ALT Alkaline Phosphatase C-Reactive Protein Total Protein Albumin Triglycerides Ur Specific [place] Urine Creatinine Crossmatch See Detail 06/11/21 06/11/21 06/11/21 19:29 19:29 23:21 WBC 15.8 H RBC Hgb 9.4 L Hct MCV 72 L MCH 22 L RDW 17.4 H Plt Count Lymph % (Auto) 9.2 L Weber % (Auto) Lymph # (Auto) Weber # (Auto) Seg Neutrophils % 89.0 H Seg Neuts % (Manual) Lymphocytes % (Manual) Monocytes % (Manual) Seg Neutrophils # 14.0 H Seg Neutrophils # Man Lymphocytes # (Manual) Monocytes # (Manual) PT 72.9 H INR 8.18 H* APTT 71.7 H* Fibrinogen D-Dimer ABG pH POC ABG pCO2 POC ABG pO2 ABG pO2 ABG HCO3 ABG O2 Saturation ABG Base Excess ABG Hemoglobin ABG Oxyhemoglobin Oxyhemoglobin Sodium 149 H D Potassium Chloride 124.3 H Carbon Dioxide 8 L* D BUN Creatinine 0.3 L Glucose 628 H* POC Glucose Lactic Acid Calcium 2.4 L* D Phosphorus Magnesium AST ALT < 5 L Alkaline Phosphatase 19 L C-Reactive Protein Total Protein 1.6 L D Albumin 0.8 L Triglycerides Ur Specific [place] Urine Creatinine Crossmatch 06/11/21 06/11/21 06/11/21 23:21 23:22 23:42 WBC RBC Hgb Hct MCV MCH 27 L RDW 22.2 H Plt Count 131 L Lymph % (Auto) Weber % (Auto) Lymph # (Auto) Weber # (Auto) Seg Neutrophils % Seg Neuts % (Manual) Lymphocytes % (Manual) Monocytes % (Manual) Seg Neutrophils # Seg Neutrophils # Man Lymphocytes # (Manual) Monocytes # (Manual) PT 46.3 H INR 4.55 H APTT 54.8 H Fibrinogen D-Dimer ABG pH POC ABG pCO2 POC ABG pO2 325.9 H ABG pO2 ABG HCO3 ABG O2 Saturation ABG Base Excess ABG Hemoglobin 8.0 L ABG Oxyhemoglobin 99.0 H Oxyhemoglobin Sodium Potassium Chloride Carbon Dioxide BUN Creatinine Glucose POC Glucose Lactic Acid Calcium Phosphorus Magnesium AST ALT Alkaline Phosphatase C-Reactive Protein Total Protein Albumin Triglycerides Ur Specific [place] Urine Creatinine Crossmatch 06/12/21 06/12/21 06/12/21 01:45 01:45 01:45 WBC 21.6 H RBC 3.04 L Hgb 6.7 L D Hct 22.4 L D MCV 74 L MCH 22 L RDW 18.9 H Plt Count Lymph % (Auto) Weber % (Auto) Lymph # (Auto) Weber # (Auto) Seg Neutrophils % Seg Neuts % (Manual) 76.0 H Lymphocytes % (Manual) 2.0 L Monocytes % (Manual) 8.0 H Seg Neutrophils # Seg Neutrophils # Man 16.4 H Lymphocytes # (Manual) 0.4 L Monocytes # (Manual) 1.7 H PT 25.4 H INR 2.10 H APTT Fibrinogen D-Dimer ABG pH POC ABG pCO2 POC ABG pO2 ABG pO2 ABG HCO3 ABG O2 Saturation ABG Base Excess ABG Hemoglobin ABG Oxyhemoglobin Oxyhemoglobin Sodium Potassium 5.6 H D Chloride Carbon Dioxide 20 L D BUN Creatinine Glucose 368 H POC Glucose Lactic Acid Calcium 7.1 L D Phosphorus Magnesium AST ALT Alkaline Phosphatase C-Reactive Protein Total Protein 5.3 L D Albumin 3.1 L Triglycerides Ur Specific [place] Urine Creatinine Crossmatch 06/12/21 06/12/21 06/12/21 02:05 04:41 11:05 WBC 14.6 H RBC 3.52 L Hgb 8.5 L Hct 27.7 L MCV MCH 24 L RDW 20.9 H Plt Count Lymph % (Auto) Weber % (Auto) Lymph # (Auto) Weber # (Auto) Seg Neutrophils % Seg Neuts % (Manual) Lymphocytes % (Manual) Monocytes % (Manual) Seg Neutrophils # Seg Neutrophils # Man Lymphocytes # (Manual) Monocytes # (Manual) PT INR APTT Fibrinogen D-Dimer ABG pH POC ABG pCO2 POC ABG pO2 224.6 H ABG pO2 ABG HCO3 ABG O2 Saturation ABG Base Excess ABG Hemoglobin 7.3 L ABG Oxyhemoglobin 98.7 H Oxyhemoglobin Sodium Potassium Chloride Carbon Dioxide BUN Creatinine Glucose POC Glucose 308 H Lactic Acid Calcium Phosphorus Magnesium AST ALT Alkaline Phosphatase C-Reactive Protein Total Protein Albumin Triglycerides Ur Specific [place] Urine Creatinine Crossmatch 06/12/21 06/12/21 06/12/21 11:05 11:05 12:18 WBC RBC Hgb Hct MCV MCH RDW Plt Count Lymph % (Auto) Weber % (Auto) Lymph # (Auto) Weber # (Auto) Seg Neutrophils % Seg Neuts % (Manual) Lymphocytes % (Manual) Monocytes % (Manual) Seg Neutrophils # Seg Neutrophils # Man Lymphocytes # (Manual) Monocytes # (Manual) PT 16.8 H INR 1.23 H APTT Fibrinogen D-Dimer ABG pH POC ABG pCO2 POC ABG pO2 ABG pO2 ABG HCO3 ABG O2 Saturation ABG Base Excess ABG Hemoglobin ABG Oxyhemoglobin Oxyhemoglobin Sodium Potassium Chloride Carbon Dioxide BUN 24 H Creatinine Glucose 324 H POC Glucose 281 H Lactic Acid Calcium 7.5 L Phosphorus Magnesium AST 70 H ALT 57 H Alkaline Phosphatase C-Reactive Protein Total Protein 6.0 L Albumin 3.6 L Triglycerides Ur Specific [place] Urine Creatinine Crossmatch 06/12/21 06/12/21 06/12/21 17:00 17:00 17:00 WBC RBC Hgb 7.5 L Hct 24.0 L MCV MCH RDW Plt Count Lymph % (Auto) Weber % (Auto) Lymph # (Auto) Weber # (Auto) Seg Neutrophils % Seg Neuts % (Manual) Lymphocytes % (Manual) Monocytes % (Manual) Seg Neutrophils # Seg Neutrophils # Man Lymphocytes # (Manual) Monocytes # (Manual) PT 16.0 H INR 1.16 H APTT Fibrinogen D-Dimer ABG pH POC ABG pCO2 POC ABG pO2 ABG pO2 ABG HCO3 ABG O2 Saturation ABG Base Excess ABG Hemoglobin ABG Oxyhemoglobin Oxyhemoglobin Sodium Potassium Chloride Carbon Dioxide BUN Creatinine Glucose POC Glucose Lactic Acid Calcium Phosphorus Magnesium AST ALT Alkaline Phosphatase C-Reactive Protein Total Protein Albumin Triglycerides Ur Specific [place] 1.035 H Urine Creatinine Crossmatch 06/12/21 06/12/21 06/12/21 18:06 23:00 23:05 WBC RBC Hgb 7.6 L Hct 23.5 L MCV MCH RDW Plt Count Lymph % (Auto) Weber % (Auto) Lymph # (Auto) Weber # (Auto) Seg Neutrophils % Seg Neuts % (Manual) Lymphocytes % (Manual) Monocytes % (Manual) Seg Neutrophils # Seg Neutrophils # Man Lymphocytes # (Manual) Monocytes # (Manual) PT INR APTT Fibrinogen D-Dimer ABG pH POC ABG pCO2 POC ABG pO2 ABG pO2 ABG HCO3 ABG O2 Saturation ABG Base Excess ABG Hemoglobin ABG Oxyhemoglobin Oxyhemoglobin Sodium Potassium Chloride Carbon Dioxide BUN Creatinine Glucose POC Glucose 257 H 300 H Lactic Acid Calcium Phosphorus Magnesium AST ALT Alkaline Phosphatase C-Reactive Protein Total Protein Albumin Triglycerides Ur Specific [place] Urine Creatinine Crossmatch 06/13/21 06/13/21 06/13/21 04:31 05:19 07:30 WBC RBC Hgb 6.8 L Hct 21.7 L MCV MCH RDW Plt Count Lymph % (Auto) [place] % (Auto) Lymph # (Auto) [place] # (Auto) Seg Neutrophils % Seg Neuts % (Manual) Lymphocytes % (Manual) Monocytes % (Manual) Seg Neutrophils # Seg Neutrophils # Man Lymphocytes # (Manual) Monocytes # (Manual) PT INR APTT Fibrinogen D-Dimer ABG pH 7.541 H POC ABG pCO2 25.6 L POC ABG pO2 138.8 H ABG pO2 ABG HCO3 ABG O2 Saturation ABG Base Excess ABG Hemoglobin 7.3 L ABG Oxyhemoglobin 98.1 H Oxyhemoglobin Sodium Potassium Chloride Carbon Dioxide BUN Creatinine Glucose POC Glucose 286 H Lactic Acid Calcium Phosphorus Magnesium AST ALT Alkaline Phosphatase C-Reactive Protein Total Protein Albumin Triglycerides Ur Specific [place] Urine Creatinine Crossmatch 06/13/21 06/13/21 06/13/21 07:30 12:04 14:50 WBC RBC Hgb Hct MCV MCH RDW Plt Count Lymph % (Auto) [place] % (Auto) Lymph # (Auto) [place] # (Auto) Seg Neutrophils % Seg Neuts % (Manual) Lymphocytes % (Manual) Monocytes % (Manual) Seg Neutrophils # Seg Neutrophils # Man Lymphocytes # (Manual) Monocytes # (Manual) PT INR APTT Fibrinogen D-Dimer ABG pH 7.039 L* 7.182 L* POC ABG pCO2 POC ABG pO2 ABG pO2 63.1 L ABG HCO3 17.4 L ABG O2 Saturation 73.4 L ABG Base Excess -12.6 L -7.1 L ABG Hemoglobin 7.7 L 6.9 L ABG Oxyhemoglobin Oxyhemoglobin 71.8 L 93.5 L Sodium Potassium Chloride 108.9 H Carbon Dioxide BUN 28 H Creatinine Glucose 293 H POC Glucose Lactic Acid Calcium 7.2 L Phosphorus Magnesium AST 106 H ALT 92 H Alkaline Phosphatase C-Reactive Protein Total Protein 5.6 L Albumin 3.3 L Triglycerides Ur Specific [place] Urine Creatinine Crossmatch 06/13/21 06/13/21 06/13/21 14:54 15:45 17:34 WBC RBC Hgb Hct MCV MCH RDW Plt Count Lymph % (Auto) [place] % (Auto) Lymph # (Auto) [place] # (Auto) Seg Neutrophils % Seg Neuts % (Manual) Lymphocytes % (Manual) Monocytes % (Manual) Seg Neutrophils # Seg Neutrophils # Man Lymphocytes # (Manual) Monocytes # (Manual) PT INR APTT Fibrinogen D-Dimer ABG pH POC ABG pCO2 POC ABG pO2 ABG pO2 178.4 H ABG HCO3 ABG O2 Saturation 99.1 H ABG Base Excess ABG Hemoglobin 8.0 L ABG Oxyhemoglobin Oxyhemoglobin Sodium Potassium Chloride 107.3 H Carbon Dioxide 19 L BUN 33 H Creatinine 1.5 H Glucose 379 H POC Glucose Lactic Acid 5.30 H* Calcium 6.8 L Phosphorus Magnesium AST ALT Alkaline Phosphatase C-Reactive Protein Total Protein Albumin Triglycerides Ur Specific [place] Urine Creatinine Crossmatch 06/13/21 06/13/21 06/13/21 17:40 23:29 Unknown WBC 22.5 H RBC 3.16 L Hgb 8.0 L Hct 26.0 L MCV MCH 26 L RDW 21.4 H Plt Count Lymph % (Auto) [place] % (Auto) Lymph # (Auto) [place] # (Auto) Seg Neutrophils % Seg Neuts % (Manual) 88.0 H Lymphocytes % (Manual) 4.0 L Monocytes % (Manual) Seg Neutrophils # Seg Neutrophils # Man 19.8 H Lymphocytes # (Manual) 0.9 L Monocytes # (Manual) 1.4 H PT INR APTT Fibrinogen D-Dimer ABG pH POC ABG pCO2 POC ABG pO2 ABG pO2 ABG HCO3 ABG O2 Saturation ABG Base Excess ABG Hemoglobin ABG Oxyhemoglobin Oxyhemoglobin Sodium Potassium Chloride Carbon Dioxide BUN Creatinine Glucose POC Glucose 294 H 288 H Lactic Acid Calcium Phosphorus Magnesium AST ALT Alkaline Phosphatase C-Reactive Protein Total Protein Albumin Triglycerides Ur Specific [place] Urine Creatinine Crossmatch 06/13/21 06/14/21 06/14/21 Unknown 05:39 06:15 WBC RBC 2.93 L Hgb 7.2 L Hct 23.2 L MCV MCH 25 L RDW 21.2 H Plt Count Lymph % (Auto) [place] % (Auto) Lymph # (Auto) [place] # (Auto) Seg Neutrophils % Seg Neuts % (Manual) Lymphocytes % (Manual) Monocytes % (Manual) Seg Neutrophils # Seg Neutrophils # Man Lymphocytes # (Manual) Monocytes # (Manual) PT 17.6 H INR 1.31 H APTT Fibrinogen 546 H D-Dimer 1244.63 H ABG pH POC ABG pCO2 POC ABG pO2 ABG pO2 ABG HCO3 ABG O2 Saturation ABG Base Excess ABG Hemoglobin ABG Oxyhemoglobin Oxyhemoglobin Sodium Potassium Chloride Carbon Dioxide BUN Creatinine Glucose POC Glucose 246 H Lactic Acid Calcium Phosphorus Magnesium AST ALT Alkaline Phosphatase C-Reactive Protein Total Protein Albumin Triglycerides Ur Specific [place] Urine Creatinine Crossmatch 06/14/21 06/14/21 06/14/21 06:15 06:15 09:13 WBC RBC Hgb Hct MCV MCH RDW Plt Count Lymph % (Auto) [place] % (Auto) Lymph # (Auto) [place] # (Auto) Seg Neutrophils % Seg Neuts % (Manual) Lymphocytes % (Manual) Monocytes % (Manual) Seg Neutrophils # Seg Neutrophils # Man Lymphocytes # (Manual) Monocytes # (Manual) PT INR APTT Fibrinogen D-Dimer ABG pH POC ABG pCO2 POC ABG pO2 ABG pO2 183.0 H ABG HCO3 ABG O2 Saturation 99.2 H ABG Base Excess ABG Hemoglobin 6.6 L ABG Oxyhemoglobin Oxyhemoglobin Sodium 147 H Potassium Chloride 112.5 H Carbon Dioxide 21 L BUN 36 H Creatinine 1.4 H Glucose 281 H POC Glucose Lactic Acid Calcium 6.9 L Phosphorus Magnesium AST ALT Alkaline Phosphatase C-Reactive Protein Total Protein Albumin Triglycerides 189 H Ur Specific [place] Urine Creatinine Crossmatch 06/14/21 06/14/21 06/14/21 10:45 12:16 13:30 WBC RBC Hgb 7.1 L Hct 22.3 L MCV MCH RDW Plt Count Lymph % (Auto) [place] % (Auto) Lymph # (Auto) [place] # (Auto) Seg Neutrophils % Seg Neuts % (Manual) Lymphocytes % (Manual) Monocytes % (Manual) Seg Neutrophils # Seg Neutrophils # Man Lymphocytes # (Manual) Monocytes # (Manual) PT INR APTT Fibrinogen D-Dimer ABG pH 7.205 L POC ABG pCO2 POC ABG pO2 ABG pO2 261.3 H ABG HCO3 ABG O2 Saturation 99.4 H ABG Base Excess -7.2 L ABG Hemoglobin 7.6 L ABG Oxyhemoglobin Oxyhemoglobin Sodium Potassium Chloride Carbon Dioxide BUN Creatinine Glucose POC Glucose 174 H Lactic Acid Calcium Phosphorus Magnesium AST ALT Alkaline Phosphatase C-Reactive Protein Total Protein Albumin Triglycerides Ur Specific [place] Urine Creatinine Crossmatch 06/14/21 06/14/21 06/15/21 17:40 18:43 00:06 WBC RBC Hgb Hct MCV MCH RDW Plt Count Lymph % (Auto) [place] % (Auto) Lymph # (Auto) [place] # (Auto) Seg Neutrophils % Seg Neuts % (Manual) Lymphocytes % (Manual) Monocytes % (Manual) Seg Neutrophils # Seg Neutrophils # Man Lymphocytes # (Manual) Monocytes # (Manual) PT INR APTT Fibrinogen D-Dimer ABG pH 7.292 L POC ABG pCO2 POC ABG pO2 ABG pO2 78.8 L ABG HCO3 ABG O2 Saturation ABG Base Excess -5.0 L ABG Hemoglobin 9.1 L ABG Oxyhemoglobin Oxyhemoglobin 93.7 L Sodium Potassium Chloride Carbon Dioxide BUN Creatinine Glucose POC Glucose 182 H 144 H Lactic Acid Calcium Phosphorus Magnesium AST ALT Alkaline Phosphatase C-Reactive Protein Total Protein Albumin Triglycerides Ur Specific [place] Urine Creatinine Crossmatch 06/15/21 06/15/21 06/15/21 03:55 03:56 10:40 WBC RBC Hgb 8.4 L Hct 25.8 L MCV MCH RDW Plt Count Lymph % (Auto) [place] % (Auto) Lymph # (Auto) [place] # (Auto) Seg Neutrophils % Seg Neuts % (Manual) Lymphocytes % (Manual) Monocytes % (Manual) Seg Neutrophils # Seg Neutrophils # Man Lymphocytes # (Manual) Monocytes # (Manual) PT INR APTT Fibrinogen D-Dimer ABG pH POC ABG pCO2 POC ABG pO2 ABG pO2 ABG HCO3 ABG O2 Saturation ABG Base Excess ABG Hemoglobin ABG Oxyhemoglobin Oxyhemoglobin Sodium 147 H Potassium Chloride 112.2 H Carbon Dioxide 21 L BUN 47 H Creatinine 1.9 H Glucose 272 H POC Glucose Lactic Acid Calcium 7.3 L Phosphorus Magnesium AST 64 H ALT 106 H Alkaline Phosphatase C-Reactive Protein Total Protein 5.1 L Albumin 2.9 L Triglycerides Ur Specific [place] Urine Creatinine 81.1 H Crossmatch 06/15/21 06/15/21 06/15/21 11:46 17:16 23:17 WBC RBC Hgb Hct MCV MCH RDW Plt Count Lymph % (Auto) [place] % (Auto) Lymph # (Auto) [place] # (Auto) Seg Neutrophils % Seg Neuts % (Manual) Lymphocytes % (Manual) Monocytes % (Manual) Seg Neutrophils # Seg Neutrophils # Man Lymphocytes # (Manual) Monocytes # (Manual) PT INR APTT Fibrinogen D-Dimer ABG pH POC ABG pCO2 POC ABG pO2 ABG pO2 ABG HCO3 ABG O2 Saturation ABG Base Excess ABG Hemoglobin ABG Oxyhemoglobin Oxyhemoglobin Sodium Potassium Chloride Carbon Dioxide BUN Creatinine Glucose POC Glucose 271 H 268 H 264 H Lactic Acid Calcium Phosphorus Magnesium AST ALT Alkaline Phosphatase C-Reactive Protein Total Protein Albumin Triglycerides Ur Specific [place] Urine Creatinine Crossmatch 06/15/21 06/15/21 06/16/21 Unknown Unknown 04:32 WBC RBC 3.21 L 3.16 L Hgb 8.4 L 8.2 L Hct 26.1 L 25.4 L MCV MCH 26 L 26 L RDW 21.3 H 21.2 H Plt Count 105 L 118 L Lymph % (Auto) [place] % (Auto) Lymph # (Auto) [place] # (Auto) Seg Neutrophils % Seg Neuts % (Manual) Lymphocytes % (Manual) Monocytes % (Manual) Seg Neutrophils # Seg Neutrophils # Man Lymphocytes # (Manual) Monocytes # (Manual) PT INR APTT Fibrinogen D-Dimer ABG pH 7.465 H POC ABG pCO2 POC ABG pO2 ABG pO2 114.1 H ABG HCO3 ABG O2 Saturation ABG Base Excess ABG Hemoglobin 8.4 L ABG Oxyhemoglobin Oxyhemoglobin Sodium Potassium Chloride Carbon Dioxide BUN Creatinine Glucose POC Glucose Lactic Acid Calcium Phosphorus Magnesium AST ALT Alkaline Phosphatase C-Reactive Protein Total Protein Albumin Triglycerides Ur Specific [place] Urine Creatinine Crossmatch 06/16/21 06/16/21 06/16/21 04:32 04:32 05:08 WBC RBC Hgb Hct MCV MCH RDW Plt Count Lymph % (Auto) [place] % (Auto) Lymph # (Auto) [place] # (Auto) Seg Neutrophils % Seg Neuts % (Manual) Lymphocytes % (Manual) Monocytes % (Manual) Seg Neutrophils # Seg Neutrophils # Man Lymphocytes # (Manual) Monocytes # (Manual) PT INR APTT Fibrinogen D-Dimer ABG pH POC ABG pCO2 POC ABG pO2 ABG pO2 ABG HCO3 ABG O2 Saturation ABG Base Excess ABG Hemoglobin ABG Oxyhemoglobin Oxyhemoglobin Sodium 148 H Potassium 3.3 L Chloride 115.1 H Carbon Dioxide 21 L BUN 54 H Creatinine 1.6 H Glucose 367 H POC Glucose 356 H Lactic Acid Calcium 7.4 L Phosphorus Magnesium AST ALT Alkaline Phosphatase C-Reactive Protein 3.30 H Total Protein Albumin Triglycerides Ur Specific [place] Urine Creatinine Crossmatch 06/16/21 06/16/21 06/16/21 05:30 11:46 17:03 WBC RBC Hgb Hct MCV MCH RDW Plt Count Lymph % (Auto) [place] % (Auto) Lymph # (Auto) [place] # (Auto) Seg Neutrophils % Seg Neuts % (Manual) Lymphocytes % (Manual) Monocytes % (Manual) Seg Neutrophils # Seg Neutrophils # Man Lymphocytes # (Manual) Monocytes # (Manual) PT INR APTT Fibrinogen D-Dimer ABG pH 7.475 H POC ABG pCO2 POC ABG pO2 ABG pO2 171.8 H ABG HCO3 ABG O2 Saturation 99.1 H ABG Base Excess ABG Hemoglobin 11.7 L ABG Oxyhemoglobin Oxyhemoglobin Sodium Potassium Chloride Carbon Dioxide BUN Creatinine Glucose POC Glucose 309 H 345 H Lactic Acid Calcium Phosphorus Magnesium AST ALT Alkaline Phosphatase C-Reactive Protein Total Protein Albumin Triglycerides Ur Specific [place] Urine Creatinine Crossmatch 06/16/21 06/16/21 06/17/21 20:18 23:22 04:50 WBC RBC Hgb Hct MCV MCH RDW Plt Count Lymph % (Auto) [place] % (Auto) Lymph # (Auto) [place] # (Auto) Seg Neutrophils % Seg Neuts % (Manual) Lymphocytes % (Manual) Monocytes % (Manual) Seg Neutrophils # Seg Neutrophils # Man Lymphocytes # (Manual) Monocytes # (Manual) PT INR APTT Fibrinogen D-Dimer ABG pH 7.479 H POC ABG pCO2 POC ABG pO2 ABG pO2 143.1 H ABG HCO3 ABG O2 Saturation ABG Base Excess ABG Hemoglobin 10.0 L ABG Oxyhemoglobin Oxyhemoglobin Sodium Potassium Chloride Carbon Dioxide BUN Creatinine Glucose POC Glucose 325 H 315 H Lactic Acid Calcium Phosphorus Magnesium AST ALT Alkaline Phosphatase C-Reactive Protein Total Protein Albumin Triglycerides Ur Specific [place] Urine Creatinine Crossmatch 06/17/21 06/17/21 06/17/21 05:18 05:30 05:30 WBC RBC 3.17 L Hgb 8.2 L Hct 25.5 L MCV MCH 26 L RDW 21.2 H Plt Count 128 L Lymph % (Auto) [place] % (Auto) Lymph # (Auto) [place] # (Auto) Seg Neutrophils % Seg Neuts % (Manual) Lymphocytes % (Manual) Monocytes % (Manual) Seg Neutrophils # Seg Neutrophils # Man Lymphocytes # (Manual) Monocytes # (Manual) PT INR APTT Fibrinogen D-Dimer ABG pH POC ABG pCO2 POC ABG pO2 ABG pO2 ABG HCO3 ABG O2 Saturation ABG Base Excess ABG Hemoglobin ABG Oxyhemoglobin Oxyhemoglobin Sodium 148 H Potassium Chloride 113.7 H Carbon Dioxide 20 L BUN 57 H Creatinine 1.4 H Glucose 351 H POC Glucose 324 H Lactic Acid Calcium 8.0 L Phosphorus 2.30 L Magnesium AST ALT Alkaline Phosphatase C-Reactive Protein Total Protein Albumin Triglycerides Ur Specific [place] Urine Creatinine Crossmatch 06/17/21 06/17/21 06/17/21 11:49 17:43 21:42 WBC RBC Hgb Hct MCV MCH RDW Plt Count Lymph % (Auto) [place] % (Auto) Lymph # (Auto) [place] # (Auto) Seg Neutrophils % Seg Neuts % (Manual) Lymphocytes % (Manual) Monocytes % (Manual) Seg Neutrophils # Seg Neutrophils # Man Lymphocytes # (Manual) Monocytes # (Manual) PT INR APTT Fibrinogen D-Dimer ABG pH POC ABG pCO2 POC ABG pO2 ABG pO2 ABG HCO3 ABG O2 Saturation ABG Base Excess ABG Hemoglobin ABG Oxyhemoglobin Oxyhemoglobin Sodium Potassium Chloride Carbon Dioxide BUN Creatinine Glucose POC Glucose 305 H 307 H 286 H Lactic Acid Calcium Phosphorus Magnesium AST ALT Alkaline Phosphatase C-Reactive Protein Total Protein Albumin Triglycerides Ur Specific [place] Urine Creatinine Crossmatch 06/17/21 06/18/21 06/18/21 23:59 04:20 04:37 WBC RBC 3.53 L Hgb 9.1 L Hct 28.7 L MCV MCH 26 L RDW 21.3 H Plt Count Lymph % (Auto) [place] % (Auto) Lymph # (Auto) [place] # (Auto) Seg Neutrophils % Seg Neuts % (Manual) Lymphocytes % (Manual) Monocytes % (Manual) Seg Neutrophils # Seg Neutrophils # Man Lymphocytes # (Manual) Monocytes # (Manual) PT INR APTT Fibrinogen D-Dimer ABG pH 7.495 H POC ABG pCO2 POC ABG pO2 ABG pO2 108.3 H ABG HCO3 ABG O2 Saturation ABG Base Excess -2.1 L ABG Hemoglobin 10.0 L ABG Oxyhemoglobin Oxyhemoglobin Sodium Potassium Chloride Carbon Dioxide BUN Creatinine Glucose POC Glucose 264 H Lactic Acid Calcium Phosphorus Magnesium AST ALT Alkaline Phosphatase C-Reactive Protein Total Protein Albumin Triglycerides Ur Specific [place] Urine Creatinine Crossmatch 06/18/21 06/18/21 06/18/21 04:37 05:32 11:21 WBC RBC Hgb Hct MCV MCH RDW Plt Count Lymph % (Auto) [place] % (Auto) Lymph # (Auto) [place] # (Auto) Seg Neutrophils % Seg Neuts % (Manual) Lymphocytes % (Manual) Monocytes % (Manual) Seg Neutrophils # Seg Neutrophils # Man Lymphocytes # (Manual) Monocytes # (Manual) PT INR APTT Fibrinogen D-Dimer ABG pH POC ABG pCO2 POC ABG pO2 ABG pO2 ABG HCO3 ABG O2 Saturation ABG Base Excess ABG Hemoglobin ABG Oxyhemoglobin Oxyhemoglobin Sodium 148 H Potassium Chloride 114.7 H Carbon Dioxide BUN 59 H Creatinine 1.3 H Glucose 329 H POC Glucose 293 H 291 H Lactic Acid Calcium 8.1 L Phosphorus Magnesium AST ALT Alkaline Phosphatase C-Reactive Protein Total Protein Albumin Triglycerides Ur Specific [place] Urine Creatinine Crossmatch 06/18/21 06/18/21 06/19/21 18:21 21:46 00:15 WBC RBC Hgb Hct MCV MCH RDW Plt Count Lymph % (Auto) [place] % (Auto) Lymph # (Auto) [place] # (Auto) Seg Neutrophils % Seg Neuts % (Manual) Lymphocytes % (Manual) Monocytes % (Manual) Seg Neutrophils # Seg Neutrophils # Man Lymphocytes # (Manual) Monocytes # (Manual) PT INR APTT Fibrinogen D-Dimer ABG pH POC ABG pCO2 POC ABG pO2 ABG pO2 ABG HCO3 ABG O2 Saturation ABG Base Excess ABG Hemoglobin ABG Oxyhemoglobin Oxyhemoglobin Sodium Potassium Chloride Carbon Dioxide BUN Creatinine Glucose POC Glucose 239 H 259 H 310 H Lactic Acid Calcium Phosphorus Magnesium AST ALT Alkaline Phosphatase C-Reactive Protein Total Protein Albumin Triglycerides Ur Specific [place] Urine Creatinine Crossmatch 06/19/21 06/19/21 06/19/21 04:00 04:00 04:50 WBC RBC 3.64 L Hgb 9.1 L Hct 29.1 L MCV MCH 25 L RDW 21.5 H Plt Count Lymph % (Auto) [place] % (Auto) Lymph # (Auto) [place] # (Auto) Seg Neutrophils % Seg Neuts % (Manual) Lymphocytes % (Manual) Monocytes % (Manual) Seg Neutrophils # Seg Neutrophils # Man Lymphocytes # (Manual) Monocytes # (Manual) PT INR APTT Fibrinogen D-Dimer ABG pH POC ABG pCO2 POC ABG pO2 ABG pO2 78.9 L ABG HCO3 ABG O2 Saturation ABG Base Excess -3.2 L ABG Hemoglobin 7.6 L ABG Oxyhemoglobin Oxyhemoglobin Sodium 148 H Potassium Chloride 114.9 H Carbon Dioxide 19 L BUN 59 H Creatinine Glucose 345 H POC Glucose Lactic Acid Calcium 8.1 L Phosphorus 4.60 H D Magnesium 2.40 H AST ALT Alkaline Phosphatase C-Reactive Protein Total Protein Albumin Triglycerides Ur Specific [place] Urine Creatinine Crossmatch 06/19/21 06/19/21 06/19/21 06:28 11:11 17:20 WBC RBC Hgb Hct MCV MCH RDW Plt Count Lymph % (Auto) [place] % (Auto) Lymph # (Auto) [place] # (Auto) Seg Neutrophils % Seg Neuts % (Manual) Lymphocytes % (Manual) Monocytes % (Manual) Seg Neutrophils # Seg Neutrophils # Man Lymphocytes # (Manual) Monocytes # (Manual) PT 29.7 H INR 2.57 H APTT Fibrinogen D-Dimer ABG pH POC ABG pCO2 POC ABG pO2 ABG pO2 ABG HCO3 ABG O2 Saturation ABG Base Excess ABG Hemoglobin ABG Oxyhemoglobin Oxyhemoglobin Sodium Potassium Chloride Carbon Dioxide BUN Creatinine Glucose POC Glucose 279 H 275 H Lactic Acid Calcium Phosphorus Magnesium AST ALT Alkaline Phosphatase C-Reactive Protein Total Protein Albumin Triglycerides Ur Specific [place] Urine Creatinine Crossmatch 06/19/21 06/19/21 06/19/21 18:30 19:20 23:27 WBC RBC Hgb 8.0 L Hct 25.0 L MCV MCH RDW Plt Count Lymph % (Auto) [place] % (Auto) Lymph # (Auto) [place] # (Auto) Seg Neutrophils % Seg Neuts % (Manual) Lymphocytes % (Manual) Monocytes % (Manual) Seg Neutrophils # Seg Neutrophils # Man Lymphocytes # (Manual) Monocytes # (Manual) PT INR APTT Fibrinogen D-Dimer ABG pH POC ABG pCO2 POC ABG pO2 ABG pO2 ABG HCO3 ABG O2 Saturation ABG Base Excess ABG Hemoglobin ABG Oxyhemoglobin Oxyhemoglobin Sodium Potassium Chloride Carbon Dioxide BUN Creatinine Glucose POC Glucose 279 H 290 H Lactic Acid Calcium Phosphorus Magnesium AST ALT Alkaline Phosphatase C-Reactive Protein Total Protein Albumin Triglycerides Ur Specific [place] Urine Creatinine Crossmatch 06/20/21 06/20/21 06/20/21 00:00 04:33 04:33 WBC 22.3 H RBC 3.31 L Hgb 7.4 L 8.5 L Hct 22.5 L 26.5 L MCV MCH 26 L RDW 21.5 H Plt Count Lymph % (Auto) [place] % (Auto) Lymph # (Auto) [place] # (Auto) Seg Neutrophils % Seg Neuts % (Manual) Lymphocytes % (Manual) Monocytes % (Manual) Seg Neutrophils # Seg Neutrophils # Man Lymphocytes # (Manual) Monocytes # (Manual) PT INR APTT Fibrinogen D-Dimer ABG pH POC ABG pCO2 POC ABG pO2 ABG pO2 ABG HCO3 ABG O2 Saturation ABG Base Excess ABG Hemoglobin ABG Oxyhemoglobin Oxyhemoglobin Sodium 148 H Potassium Chloride 114.2 H Carbon Dioxide BUN 70 H Creatinine 1.4 H Glucose 313 H POC Glucose Lactic Acid Calcium 8.2 L Phosphorus Magnesium 2.50 H AST ALT Alkaline Phosphatase C-Reactive Protein Total Protein Albumin Triglycerides Ur Specific [place] Urine Creatinine Crossmatch 06/20/21 06/20/21 06/20/21 04:33 05:27 11:21 WBC RBC Hgb Hct MCV MCH RDW Plt Count Lymph % (Auto) [place] % (Auto) Lymph # (Auto) [place] # (Auto) Seg Neutrophils % Seg Neuts % (Manual) Lymphocytes % (Manual) Monocytes % (Manual) Seg Neutrophils # Seg Neutrophils # Man Lymphocytes # (Manual) Monocytes # (Manual) PT 18.3 H INR 1.37 H APTT Fibrinogen D-Dimer ABG pH POC ABG pCO2 POC ABG pO2 ABG pO2 ABG HCO3 ABG O2 Saturation ABG Base Excess ABG Hemoglobin ABG Oxyhemoglobin Oxyhemoglobin Sodium Potassium Chloride Carbon Dioxide BUN Creatinine Glucose POC Glucose 288 H 306 H Lactic Acid Calcium Phosphorus Magnesium AST ALT Alkaline Phosphatase C-Reactive Protein Total Protein Albumin Triglycerides Ur Specific [place] Urine Creatinine Crossmatch 06/20/21 06/20/21 06/20/21 12:23 15:56 18:20 WBC RBC Hgb 8.2 L 8.1 L Hct 25.9 L 25.5 L MCV MCH RDW Plt Count Lymph % (Auto) [place] % (Auto) Lymph # (Auto) [place] # (Auto) Seg Neutrophils % Seg Neuts % (Manual) Lymphocytes % (Manual) Monocytes % (Manual) Seg Neutrophils # Seg Neutrophils # Man Lymphocytes # (Manual) Monocytes # (Manual) PT INR APTT Fibrinogen D-Dimer ABG pH POC ABG pCO2 POC ABG pO2 ABG pO2 ABG HCO3 ABG O2 Saturation ABG Base Excess ABG Hemoglobin ABG Oxyhemoglobin Oxyhemoglobin Sodium Potassium Chloride Carbon Dioxide BUN Creatinine Glucose POC Glucose 293 H Lactic Acid Calcium Phosphorus Magnesium AST ALT Alkaline Phosphatase C-Reactive Protein Total Protein Albumin Triglycerides Ur Specific [place] Urine Creatinine Crossmatch 06/20/21 06/21/21 06/21/21 23:11 04:20 04:42 WBC 15.1 H RBC 2.84 L Hgb 7.3 L Hct 23.1 L MCV MCH 26 L RDW 21.5 H Plt Count Lymph % (Auto) 3.5 L [place] % (Auto) 11.7 H Lymph # (Auto) 0.5 L [place] # (Auto) 1.8 H Seg Neutrophils % 84.7 H Seg Neuts % (Manual) Lymphocytes % (Manual) Monocytes % (Manual) Seg Neutrophils # 12.8 H Seg Neutrophils # Man Lymphocytes # (Manual) Monocytes # (Manual) PT INR APTT Fibrinogen D-Dimer ABG pH POC ABG pCO2 POC ABG pO2 ABG pO2 98.5 H ABG HCO3 ABG O2 Saturation ABG Base Excess ABG Hemoglobin 7.2 L ABG Oxyhemoglobin Oxyhemoglobin Sodium Potassium Chloride Carbon Dioxide BUN Creatinine Glucose POC Glucose 206 H Lactic Acid Calcium Phosphorus Magnesium AST ALT Alkaline Phosphatase C-Reactive Protein Total Protein Albumin Triglycerides Ur Specific [place] Urine Creatinine Crossmatch 06/21/21 06/21/21 06/21/21 04:42 05:08 11:06 WBC RBC Hgb Hct MCV MCH RDW Plt Count Lymph % (Auto) [place] % (Auto) Lymph # (Auto) [place] # (Auto) Seg Neutrophils % Seg Neuts % (Manual) Lymphocytes % (Manual) Monocytes % (Manual) Seg Neutrophils # Seg Neutrophils # Man Lymphocytes # (Manual) Monocytes # (Manual) PT INR APTT Fibrinogen D-Dimer ABG pH POC ABG pCO2 POC ABG pO2 ABG pO2 ABG HCO3 ABG O2 Saturation ABG Base Excess ABG Hemoglobin ABG Oxyhemoglobin Oxyhemoglobin Sodium 151 H Potassium Chloride 117.2 H Carbon Dioxide 21 L BUN 75 H Creatinine 1.6 H Glucose 216 H POC Glucose 190 H 204 H Lactic Acid Calcium 7.9 L Phosphorus Magnesium 2.60 H AST ALT Alkaline Phosphatase C-Reactive Protein Total Protein Albumin Triglycerides 254 H Ur Specific [place] Urine Creatinine Crossmatch 06/21/21 06/21/21 06/21/21 14:00 16:42 21:52 WBC RBC Hgb 7.1 L 7.2 L Hct 22.0 L 22.1 L MCV MCH RDW Plt Count Lymph % (Auto) [place] % (Auto) Lymph # (Auto) [place] # (Auto) Seg Neutrophils % Seg Neuts % (Manual) Lymphocytes % (Manual) Monocytes % (Manual) Seg Neutrophils # Seg Neutrophils # Man Lymphocytes # (Manual) Monocytes # (Manual) PT INR APTT Fibrinogen D-Dimer ABG pH POC ABG pCO2 POC ABG pO2 ABG pO2 ABG HCO3 ABG O2 Saturation ABG Base Excess ABG Hemoglobin ABG Oxyhemoglobin Oxyhemoglobin Sodium Potassium Chloride Carbon Dioxide BUN Creatinine Glucose POC Glucose 207 H Lactic Acid Calcium Phosphorus Magnesium AST ALT Alkaline Phosphatase C-Reactive Protein Total Protein Albumin Triglycerides Ur Specific [place] Urine Creatinine Crossmatch 06/21/21 06/22/21 06/22/21 23:29 04:30 04:30 WBC 16.8 H RBC 2.93 L Hgb 7.4 L Hct 23.9 L MCV MCH 25 L RDW 21.8 H Plt Count Lymph % (Auto) [place] % (Auto) Lymph # (Auto) [place] # (Auto) Seg Neutrophils % Seg Neuts % (Manual) Lymphocytes % (Manual) Monocytes % (Manual) Seg Neutrophils # Seg Neutrophils # Man Lymphocytes # (Manual) Monocytes # (Manual) PT INR APTT Fibrinogen D-Dimer ABG pH POC ABG pCO2 POC ABG pO2 ABG pO2 ABG HCO3 ABG O2 Saturation ABG Base Excess ABG Hemoglobin ABG Oxyhemoglobin Oxyhemoglobin Sodium 151 H Potassium Chloride 118.7 H Carbon Dioxide BUN 57 H Creatinine Glucose 238 H POC Glucose 273 H Lactic Acid Calcium 8.0 L Phosphorus Magnesium 2.70 H AST ALT Alkaline Phosphatase C-Reactive Protein Total Protein Albumin Triglycerides Ur Specific [place] Urine Creatinine Crossmatch 06/22/21 06/22/21 06/22/21 05:17 11:31 14:20 WBC RBC Hgb 7.4 L Hct 22.5 L MCV MCH RDW Plt Count Lymph % (Auto) [place] % (Auto) Lymph # (Auto) [place] # (Auto) Seg Neutrophils % Seg Neuts % (Manual) Lymphocytes % (Manual) Monocytes % (Manual) Seg Neutrophils # Seg Neutrophils # Man Lymphocytes # (Manual) Monocytes # (Manual) PT INR APTT Fibrinogen D-Dimer ABG pH POC ABG pCO2 POC ABG pO2 ABG pO2 ABG HCO3 ABG O2 Saturation ABG Base Excess ABG Hemoglobin ABG Oxyhemoglobin Oxyhemoglobin Sodium Potassium Chloride Carbon Dioxide BUN Creatinine Glucose POC Glucose 214 H 214 H Lactic Acid Calcium Phosphorus Magnesium AST ALT Alkaline Phosphatase C-Reactive Protein Total Protein Albumin Triglycerides Ur Specific [place] Urine Creatinine Crossmatch 06/22/21 06/22/21 06/23/21 17:18 23:47 05:33 WBC RBC Hgb Hct MCV MCH RDW Plt Count Lymph % (Auto) [place] % (Auto) Lymph # (Auto) [place] # (Auto) Seg Neutrophils % Seg Neuts % (Manual) Lymphocytes % (Manual) Monocytes % (Manual) Seg Neutrophils # Seg Neutrophils # Man Lymphocytes # (Manual) Monocytes # (Manual) PT INR APTT Fibrinogen D-Dimer ABG pH POC ABG pCO2 POC ABG pO2 ABG pO2 ABG HCO3 ABG O2 Saturation ABG Base Excess ABG Hemoglobin ABG Oxyhemoglobin Oxyhemoglobin Sodium Potassium Chloride Carbon Dioxide BUN Creatinine Glucose POC Glucose 238 H 227 H 202 H Lactic Acid Calcium Phosphorus Magnesium AST ALT Alkaline Phosphatase C-Reactive Protein Total Protein Albumin Triglycerides Ur Specific [place] Urine Creatinine Crossmatch 06/23/21 06/23/21 06/23/21 10:04 10:04 11:06 WBC 20.3 H RBC 2.71 L Hgb 7.3 L Hct 21.8 L MCV MCH 27 L RDW 22.1 H Plt Count Lymph % (Auto) [place] % (Auto) Lymph # (Auto) [place] # (Auto) Seg Neutrophils % Seg Neuts % (Manual) Lymphocytes % (Manual) Monocytes % (Manual) Seg Neutrophils # Seg Neutrophils # Man Lymphocytes # (Manual) Monocytes # (Manual) PT INR APTT Fibrinogen D-Dimer ABG pH POC ABG pCO2 POC ABG pO2 ABG pO2 ABG HCO3 ABG O2 Saturation ABG Base Excess ABG Hemoglobin ABG Oxyhemoglobin Oxyhemoglobin Sodium 151 H Potassium 3.2 L Chloride 116.9 H Carbon Dioxide BUN 40 H Creatinine Glucose 208 H POC Glucose 204 H Lactic Acid Calcium 8.0 L Phosphorus 1.80 L D Magnesium AST ALT Alkaline Phosphatase C-Reactive Protein Total Protein Albumin Triglycerides Ur Specific [place] Urine Creatinine Crossmatch 06/23/21 06/23/21 06/24/21 16:11 23:47 04:00 WBC 16.9 H RBC 2.49 L Hgb 6.6 L Hct 20.3 L MCV MCH 26 L RDW 22.6 H Plt Count Lymph % (Auto) [place] % (Auto) Lymph # (Auto) [place] # (Auto) Seg Neutrophils % Seg Neuts % (Manual) Lymphocytes % (Manual) Monocytes % (Manual) Seg Neutrophils # Seg Neutrophils # Man Lymphocytes # (Manual) Monocytes # (Manual) PT INR APTT Fibrinogen D-Dimer ABG pH POC ABG pCO2 POC ABG pO2 ABG pO2 ABG HCO3 ABG O2 Saturation ABG Base Excess ABG Hemoglobin ABG Oxyhemoglobin Oxyhemoglobin Sodium Potassium Chloride Carbon Dioxide BUN Creatinine Glucose POC Glucose 228 H 189 H Lactic Acid Calcium Phosphorus Magnesium AST ALT Alkaline Phosphatase C-Reactive Protein Total Protein Albumin Triglycerides Ur Specific [place] Urine Creatinine Crossmatch 06/24/21 06/24/21 06/24/21 04:00 05:43 06:40 WBC RBC Hgb Hct MCV MCH RDW Plt Count Lymph % (Auto) [place] % (Auto) Lymph # (Auto) [place] # (Auto) Seg Neutrophils % Seg Neuts % (Manual) Lymphocytes % (Manual) Monocytes % (Manual) Seg Neutrophils # Seg Neutrophils # Man Lymphocytes # (Manual) Monocytes # (Manual) PT INR APTT Fibrinogen D-Dimer ABG pH POC ABG pCO2 POC ABG pO2 ABG pO2 ABG HCO3 ABG O2 Saturation ABG Base Excess ABG Hemoglobin ABG Oxyhemoglobin Oxyhemoglobin Sodium 148 H Potassium 3.2 L Chloride 115.6 H Carbon Dioxide BUN 35 H Creatinine Glucose 153 H POC Glucose 134 H Lactic Acid Calcium 7.9 L Phosphorus 2.40 L D Magnesium AST ALT Alkaline Phosphatase C-Reactive Protein Total Protein Albumin Triglycerides Ur Specific [place] Urine Creatinine Crossmatch See Detail 06/24/21 06/24/21 06/24/21 11:08 16:47 21:49 WBC RBC Hgb Hct MCV MCH RDW Plt Count Lymph % (Auto) [place] % (Auto) Lymph # (Auto) [place] # (Auto) Seg Neutrophils % Seg Neuts % (Manual) Lymphocytes % (Manual) Monocytes % (Manual) Seg Neutrophils # Seg Neutrophils # Man Lymphocytes # (Manual) Monocytes # (Manual) PT INR APTT Fibrinogen D-Dimer ABG pH POC ABG pCO2 POC ABG pO2 ABG pO2 ABG HCO3 ABG O2 Saturation ABG Base Excess ABG Hemoglobin ABG Oxyhemoglobin Oxyhemoglobin Sodium Potassium Chloride Carbon Dioxide BUN Creatinine Glucose POC Glucose 153 H 201 H 132 H Lactic Acid Calcium Phosphorus Magnesium AST ALT Alkaline Phosphatase C-Reactive Protein Total Protein Albumin Triglycerides Ur Specific [place] Urine Creatinine Crossmatch 06/24/21 06/25/21 06/25/21 23:24 05:30 09:00 WBC RBC Hgb 8.3 L Hct 27.0 L MCV MCH RDW Plt Count Lymph % (Auto) [place] % (Auto) Lymph # (Auto) [place] # (Auto) Seg Neutrophils % Seg Neuts % (Manual) Lymphocytes % (Manual) Monocytes % (Manual) Seg Neutrophils # Seg Neutrophils # Man Lymphocytes # (Manual) Monocytes # (Manual) PT INR APTT Fibrinogen D-Dimer ABG pH POC ABG pCO2 POC ABG pO2 ABG pO2 ABG HCO3 ABG O2 Saturation ABG Base Excess ABG Hemoglobin ABG Oxyhemoglobin Oxyhemoglobin Sodium Potassium Chloride Carbon Dioxide BUN Creatinine Glucose POC Glucose 170 H 151 H Lactic Acid Calcium Phosphorus Magnesium AST ALT Alkaline Phosphatase C-Reactive Protein Total Protein Albumin Triglycerides Ur Specific [place] Urine Creatinine Crossmatch 06/25/21 06/25/21 06/25/21 11:29 14:24 16:48 WBC RBC Hgb 8.5 L Hct 27.5 L MCV MCH RDW Plt Count Lymph % (Auto) [place] % (Auto) Lymph # (Auto) [place] # (Auto) Seg Neutrophils % Seg Neuts % (Manual) Lymphocytes % (Manual) Monocytes % (Manual) Seg Neutrophils # Seg Neutrophils # Man Lymphocytes # (Manual) Monocytes # (Manual) PT INR APTT Fibrinogen D-Dimer ABG pH POC ABG pCO2 POC ABG pO2 ABG pO2 ABG HCO3 ABG O2 Saturation ABG Base Excess ABG Hemoglobin ABG Oxyhemoglobin Oxyhemoglobin Sodium Potassium Chloride Carbon Dioxide BUN Creatinine Glucose POC Glucose 189 H 224 H Lactic Acid Calcium Phosphorus Magnesium AST ALT Alkaline Phosphatase C-Reactive Protein Total Protein Albumin Triglycerides Ur Specific [place] Urine Creatinine Crossmatch 06/25/21 06/25/21 06/25/21 23:39 Unknown Unknown WBC 16.5 H RBC 2.90 L Hgb 8.0 L Hct 23.8 L MCV MCH RDW 22.8 H Plt Count Lymph % (Auto) [place] % (Auto) Lymph # (Auto) [place] # (Auto) Seg Neutrophils % Seg Neuts % (Manual) Lymphocytes % (Manual) Monocytes % (Manual) Seg Neutrophils # Seg Neutrophils # Man Lymphocytes # (Manual) Monocytes # (Manual) PT INR APTT Fibrinogen D-Dimer ABG pH POC ABG pCO2 POC ABG pO2 ABG pO2 ABG HCO3 ABG O2 Saturation ABG Base Excess ABG Hemoglobin ABG Oxyhemoglobin Oxyhemoglobin Sodium 149 H Potassium Chloride 115.6 H Carbon Dioxide BUN 28 H Creatinine Glucose 157 H POC Glucose 187 H Lactic Acid Calcium 8.0 L Phosphorus Magnesium AST ALT Alkaline Phosphatase C-Reactive Protein Total Protein Albumin Triglycerides Ur Specific [place] Urine Creatinine Crossmatch 06/26/21 06/26/21 06/26/21 05:22 05:29 05:29 WBC 16.2 H RBC 3.03 L Hgb 8.0 L Hct 25.1 L MCV MCH 26 L RDW 23.2 H Plt Count Lymph % (Auto) [place] % (Auto) Lymph # (Auto) [place] # (Auto) Seg Neutrophils % Seg Neuts % (Manual) Lymphocytes % (Manual) Monocytes % (Manual) Seg Neutrophils # Seg Neutrophils # Man Lymphocytes # (Manual) Monocytes # (Manual) PT INR APTT Fibrinogen D-Dimer ABG pH POC ABG pCO2 POC ABG pO2 ABG pO2 ABG HCO3 ABG O2 Saturation ABG Base Excess ABG Hemoglobin ABG Oxyhemoglobin Oxyhemoglobin Sodium 150 H Potassium Chloride 114.8 H Carbon Dioxide BUN 29 H Creatinine Glucose 229 H POC Glucose 211 H Lactic Acid Calcium 8.2 L Phosphorus Magnesium AST ALT Alkaline Phosphatase C-Reactive Protein Total Protein Albumin Triglycerides Ur Specific [place] Urine Creatinine Crossmatch 06/26/21 06/26/21 06/26/21 11:05 15:59 22:00 WBC RBC Hgb Hct MCV MCH RDW Plt Count Lymph % (Auto) [place] % (Auto) Lymph # (Auto) [place] # (Auto) Seg Neutrophils % Seg Neuts % (Manual) Lymphocytes % (Manual) Monocytes % (Manual) Seg Neutrophils # Seg Neutrophils # Man Lymphocytes # (Manual) Monocytes # (Manual) PT INR APTT Fibrinogen D-Dimer ABG pH POC ABG pCO2 POC ABG pO2 ABG pO2 ABG HCO3 ABG O2 Saturation ABG Base Excess ABG Hemoglobin ABG Oxyhemoglobin Oxyhemoglobin Sodium Potassium Chloride Carbon Dioxide BUN Creatinine Glucose POC Glucose 213 H 222 H 161 H Lactic Acid Calcium Phosphorus Magnesium AST ALT Alkaline Phosphatase C-Reactive Protein Total Protein Albumin Triglycerides Ur Specific [place] Urine Creatinine Crossmatch 06/26/21 06/27/21 06/27/21 23:24 04:15 04:15 WBC 14.3 H RBC 2.96 L Hgb 8.1 L Hct 24.6 L MCV MCH 27 L RDW 23.0 H Plt Count Lymph % (Auto) [place] % (Auto) Lymph # (Auto) [place] # (Auto) Seg Neutrophils % Seg Neuts % (Manual) Lymphocytes % (Manual) Monocytes % (Manual) Seg Neutrophils # Seg Neutrophils # Man Lymphocytes # (Manual) Monocytes # (Manual) PT INR APTT Fibrinogen D-Dimer ABG pH POC ABG pCO2 POC ABG pO2 ABG pO2 ABG HCO3 ABG O2 Saturation ABG Base Excess ABG Hemoglobin ABG Oxyhemoglobin Oxyhemoglobin Sodium 150 H Potassium Chloride 113.8 H Carbon Dioxide BUN 26 H Creatinine Glucose 246 H POC Glucose 164 H Lactic Acid Calcium 7.8 L Phosphorus Magnesium AST ALT Alkaline Phosphatase C-Reactive Protein Total Protein Albumin Triglycerides Ur Specific [place] Urine Creatinine Crossmatch 06/27/21 06/27/21 06/27/21 05:44 11:07 16:06 WBC RBC Hgb Hct MCV MCH RDW Plt Count Lymph % (Auto) [place] % (Auto) Lymph # (Auto) [place] # (Auto) Seg Neutrophils % Seg Neuts % (Manual) Lymphocytes % (Manual) Monocytes % (Manual) Seg Neutrophils # Seg Neutrophils # Man Lymphocytes # (Manual) Monocytes # (Manual) PT INR APTT Fibrinogen D-Dimer ABG pH POC ABG pCO2 POC ABG pO2 ABG pO2 ABG HCO3 ABG O2 Saturation ABG Base Excess ABG Hemoglobin ABG Oxyhemoglobin Oxyhemoglobin Sodium Potassium Chloride Carbon Dioxide BUN Creatinine Glucose POC Glucose 226 H 204 H 224 H Lactic Acid Calcium Phosphorus Magnesium AST ALT Alkaline Phosphatase C-Reactive Protein Total Protein Albumin Triglycerides Ur Specific [place] Urine Creatinine Crossmatch 06/27/21 06/28/21 06/28/21 23:49 04:00 04:00 WBC 15.4 H RBC 3.05 L Hgb 8.2 L Hct 25.0 L MCV MCH 27 L RDW 22.6 H Plt Count Lymph % (Auto) [place] % (Auto) Lymph # (Auto) [place] # (Auto) Seg Neutrophils % Seg Neuts % (Manual) Lymphocytes % (Manual) Monocytes % (Manual) Seg Neutrophils # Seg Neutrophils # Man Lymphocytes # (Manual) Monocytes # (Manual) PT INR APTT Fibrinogen D-Dimer ABG pH POC ABG pCO2 POC ABG pO2 ABG pO2 ABG HCO3 ABG O2 Saturation ABG Base Excess ABG Hemoglobin ABG Oxyhemoglobin Oxyhemoglobin Sodium 152 H Potassium 3.0 L Chloride 114.9 H Carbon Dioxide BUN 24 H Creatinine Glucose 158 H POC Glucose 195 H Lactic Acid Calcium 8.1 L Phosphorus Magnesium AST ALT Alkaline Phosphatase C-Reactive Protein Total Protein Albumin Triglycerides Ur Specific [place] Urine Creatinine Crossmatch 06/28/21 06/28/21 06/28/21 05:05 11:47 17:21 WBC RBC Hgb Hct MCV MCH RDW Plt Count Lymph % (Auto) [place] % (Auto) Lymph # (Auto) [place] # (Auto) Seg Neutrophils % Seg Neuts % (Manual) Lymphocytes % (Manual) Monocytes % (Manual) Seg Neutrophils # Seg Neutrophils # Man Lymphocytes # (Manual) Monocytes # (Manual) PT INR APTT Fibrinogen D-Dimer ABG pH POC ABG pCO2 POC ABG pO2 ABG pO2 ABG HCO3 ABG O2 Saturation ABG Base Excess ABG Hemoglobin ABG Oxyhemoglobin Oxyhemoglobin Sodium Potassium Chloride Carbon Dioxide BUN Creatinine Glucose POC Glucose 121 H 164 H 166 H Lactic Acid Calcium Phosphorus Magnesium AST ALT Alkaline Phosphatase C-Reactive Protein Total Protein Albumin Triglycerides Ur Specific [place] Urine Creatinine Crossmatch 06/28/21 06/28/21 06/29/21 18:14 21:54 00:55 WBC RBC Hgb Hct MCV MCH RDW Plt Count Lymph % (Auto) [place] % (Auto) Lymph # (Auto) [place] # (Auto) Seg Neutrophils % Seg Neuts % (Manual) Lymphocytes % (Manual) Monocytes % (Manual) Seg Neutrophils # Seg Neutrophils # Man Lymphocytes # (Manual) Monocytes # (Manual) PT INR APTT Fibrinogen D-Dimer ABG pH POC ABG pCO2 POC ABG pO2 ABG pO2 ABG HCO3 ABG O2 Saturation ABG Base Excess ABG Hemoglobin ABG Oxyhemoglobin Oxyhemoglobin Sodium Potassium Chloride Carbon Dioxide BUN Creatinine Glucose POC Glucose 150 H 148 H 176 H Lactic Acid Calcium Phosphorus Magnesium AST ALT Alkaline Phosphatase C-Reactive Protein Total Protein Albumin Triglycerides Ur Specific [place] Urine Creatinine Crossmatch 06/29/21 06/29/21 06/29/21 04:00 04:00 05:20 WBC 15.3 H RBC 3.04 L Hgb 8.0 L Hct 25.0 L MCV MCH 26 L RDW 22.3 H Plt Count Lymph % (Auto) [place] % (Auto) Lymph # (Auto) [place] # (Auto) Seg Neutrophils % Seg Neuts % (Manual) Lymphocytes % (Manual) Monocytes % (Manual) Seg Neutrophils # Seg Neutrophils # Man Lymphocytes # (Manual) Monocytes # (Manual) PT INR APTT Fibrinogen D-Dimer ABG pH POC ABG pCO2 POC ABG pO2 ABG pO2 ABG HCO3 ABG O2 Saturation ABG Base Excess ABG Hemoglobin ABG Oxyhemoglobin Oxyhemoglobin Sodium Potassium 3.1 L Chloride 108.7 H Carbon Dioxide BUN 20 H Creatinine Glucose 194 H POC Glucose 185 H Lactic Acid Calcium 8.0 L Phosphorus Magnesium AST ALT Alkaline Phosphatase C-Reactive Protein Total Protein Albumin Triglycerides Ur Specific [place] Urine Creatinine Crossmatch 06/29/21 06/29/21 06/30/21 12:18 17:20 00:49 WBC RBC Hgb Hct MCV MCH RDW Plt Count Lymph % (Auto) [place] % (Auto) Lymph # (Auto) [place] # (Auto) Seg Neutrophils % Seg Neuts % (Manual) Lymphocytes % (Manual) Monocytes % (Manual) Seg Neutrophils # Seg Neutrophils # Man Lymphocytes # (Manual) Monocytes # (Manual) PT INR APTT Fibrinogen D-Dimer ABG pH POC ABG pCO2 POC ABG pO2 ABG pO2 ABG HCO3 ABG O2 Saturation ABG Base Excess ABG Hemoglobin ABG Oxyhemoglobin Oxyhemoglobin Sodium Potassium Chloride Carbon Dioxide BUN Creatinine Glucose POC Glucose 135 H 185 H 156 H Lactic Acid Calcium Phosphorus Magnesium AST ALT Alkaline Phosphatase C-Reactive Protein Total Protein Albumin Triglycerides Ur Specific [place] Urine Creatinine Crossmatch 06/30/21 06/30/21 06/30/21 04:25 04:25 08:14 WBC 13.0 H RBC 3.19 L Hgb 8.2 L Hct 26.2 L MCV MCH 26 L RDW 22.3 H Plt Count Lymph % (Auto) [place] % (Auto) Lymph # (Auto) [place] # (Auto) Seg Neutrophils % Seg Neuts % (Manual) 81.0 H Lymphocytes % (Manual) 10.0 L Monocytes % (Manual) 8.0 H Seg Neutrophils # Seg Neutrophils # Man 10.5 H Lymphocytes # (Manual) Monocytes # (Manual) 1.0 H PT INR APTT Fibrinogen D-Dimer ABG pH POC ABG pCO2 POC ABG pO2 ABG pO2 ABG HCO3 ABG O2 Saturation ABG Base Excess ABG Hemoglobin ABG Oxyhemoglobin Oxyhemoglobin Sodium Potassium 3.0 L Chloride Carbon Dioxide BUN 20 H Creatinine Glucose 104 H POC Glucose 119 H Lactic Acid Calcium 8.3 L Phosphorus Magnesium AST ALT Alkaline Phosphatase C-Reactive Protein Total Protein Albumin Triglycerides Ur Specific [place] Urine Creatinine Crossmatch 06/30/21 06/30/21 06/30/21 11:36 16:24 22:44 WBC RBC Hgb Hct MCV MCH RDW Plt Count Lymph % (Auto) [place] % (Auto) Lymph # (Auto) [place] # (Auto) Seg Neutrophils % Seg Neuts % (Manual) Lymphocytes % (Manual) Monocytes % (Manual) Seg Neutrophils # Seg Neutrophils # Man Lymphocytes # (Manual) Monocytes # (Manual) PT INR APTT Fibrinogen D-Dimer ABG pH POC ABG pCO2 POC ABG pO2 ABG pO2 ABG HCO3 ABG O2 Saturation ABG Base Excess ABG Hemoglobin ABG Oxyhemoglobin Oxyhemoglobin Sodium Potassium Chloride Carbon Dioxide BUN Creatinine Glucose POC Glucose 154 H 208 H 174 H Lactic Acid Calcium Phosphorus Magnesium AST ALT Alkaline Phosphatase C-Reactive Protein Total Protein Albumin Triglycerides Ur Specific [place] Urine Creatinine Crossmatch 07/01/21 07/01/21 07/01/21 05:29 05:29 05:54 WBC 11.9 H RBC 3.00 L Hgb 8.1 L Hct 24.4 L MCV MCH 27 L RDW 21.7 H Plt Count Lymph % (Auto) [place] % (Auto) Lymph # (Auto) [place] # (Auto) Seg Neutrophils % Seg Neuts % (Manual) Lymphocytes % (Manual) Monocytes % (Manual) Seg Neutrophils # Seg Neutrophils # Man Lymphocytes # (Manual) Monocytes # (Manual) PT INR APTT Fibrinogen D-Dimer ABG pH POC ABG pCO2 POC ABG pO2 ABG pO2 ABG HCO3 ABG O2 Saturation ABG Base Excess ABG Hemoglobin ABG Oxyhemoglobin Oxyhemoglobin Sodium Potassium Chloride Carbon Dioxide BUN Creatinine Glucose 177 H POC Glucose 170 H Lactic Acid Calcium Phosphorus Magnesium AST ALT Alkaline Phosphatase C-Reactive Protein Total Protein Albumin Triglycerides Ur Specific [place] Urine Creatinine Crossmatch 07/01/21 10:54 WBC RBC Hgb Hct MCV MCH RDW Plt Count Lymph % (Auto) [place] % (Auto) Lymph # (Auto) [place] # (Auto) Seg Neutrophils % Seg Neuts % (Manual) Lymphocytes % (Manual) Monocytes % (Manual) Seg Neutrophils # Seg Neutrophils # Man Lymphocytes # (Manual) Monocytes # (Manual) PT INR APTT Fibrinogen D-Dimer ABG pH POC ABG pCO2 POC ABG pO2 ABG pO2 ABG HCO3 ABG O2 Saturation ABG Base Excess ABG Hemoglobin ABG Oxyhemoglobin Oxyhemoglobin Sodium Potassium Chloride Carbon Dioxide BUN Creatinine Glucose POC Glucose 184 H Lactic Acid Calcium Phosphorus Magnesium AST ALT Alkaline Phosphatase C-Reactive Protein Total Protein Albumin Triglycerides Ur Specific [place] Urine Creatinine Crossmatch
--- NOTE | 2021-07-01 14:04 | Progress Note ---
Assessment and Plan Cultures: 06/12/2021 blood cultures: no growth A/P: 76-year-old female with diabetes, hypertension, gout was admitted to the hospital on 06/11/2021 with swelling of the submandibular region, tongue and difficulty breathing, labs also revealed severe coagulopathy due to Coumadin. 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 Shock resolved. s/p tracheostomy and PEG tube placement 06/19/2021. #Acute respiratory failure: s/p trach #Right-sided pneumothorax: s/p chest tube. #Diabetes mellitus, uncontrolled #Coagulopathy: Secondary to Coumadin. #Acute blood loss anemia Recs: -continue Zosyn -continue on steroid taper per pulm/ICU -if leucocytosis persists after being off steroids, obtain CT neck with IV contrast to rule out any abscess Sinai Small MD [facility] O: [phone] F: [phone] Subjective Date of service: 07/01/21 Interval history: Afebrile, white count 1.9. Imaging personally reviewed: Chest x-ray: Improving pulmonary opacities. Objective - Exam Narrative Exam: Physical Exam: Constitutional: Awake, on T-piece Head, Ears, Nose: Normocephalic, atraumatic. External ears, nose normal Eyes: Conjunctivae/corneas clear. No icterus. No ptosis. Oral: trach Cardiovascular: S1, S2 + Respiratory: AE reduced, right-sided chest tube. GI: Soft, bowel sounds +, PEG + Musculoskeletal: No pedal edema, no cyanosis. Skin: No rash or abscess Hem/Lymphatic: No palpable cervical or supraclavicular nodes. No lymphangitis Psych: no agitation Neurological: on t-piece examined. - Constitutional Vitals: Vital Signs Temp Pulse Resp BP Pulse Ox 98.7 F 75 17 169/73 95 07/01/21 10:57 07/01/21 11:11 07/01/21 10:57 07/01/21 11:11 07/01/21 10:57 Temperature -Last 24 Hours Temperature 98.7 F Temperature 98.2 F Temperature 97.4 F Temperature 98.5 F Temperature 98.5 F Temperature 98.6 F - Labs CBC & Chem 7: 07/01/21 05:29 07/01/21 05:29 Labs: Abnormal lab results 06/30/21 06/30/21 07/01/21 Range/Units 16:24 22:44 05:29 WBC 11.9 H (4.5-11.0) K/mm3 RBC 3.00 L (3.65-5.03) M/mm3 Hgb 8.1 L (10.1-14.3) gm/dl Hct 24.4 L (30.3-42.9) % MCH 27 L (28-32) pg RDW 21.7 H (13.2-15.2) % Glucose (65-100) mg/dL POC Glucose 208 H 174 H (70-105) mg/dL 07/01/21 07/01/21 07/01/21 Range/Units 05:29 05:54 10:54 WBC (4.5-11.0) K/mm3 RBC (3.65-5.03) M/mm3 Hgb (10.1-14.3) gm/dl Hct (30.3-42.9) % MCH (28-32) pg RDW (13.2-15.2) % Glucose 177 H (65-100) mg/dL POC Glucose 170 H 184 H (70-105) mg/dL
--- NOTE | 2021-07-01 20:46 | Progress Note ---
Assessment and Plan Assessment and plan: This is a 76-year-old female with HTN, Coumadin use , dental caries, PVD s/p stenting right leg, DM, arthritis, depression, gout, and ? Pulmonary hypertension who presented to emergency department on 06/11 with complaints of pain to mandible area and throat and swelling. Work-up in the emergency department included CT scan of the head and neck which showed findings consistent with Jeremiah's angina and anesthesia was called for intubation. Anesthesia intubation attempts were unsuccessful and surgery was consulted for cricothyroidotomy which was unsuccessful in the emergency department and patient was taken to the OR for tracheostomy. Intubation procedure was complicated by development of pneumothorax and excessive bleeding. Patient given multiple FFP's and vitamin K several times who attempts to decrease INR. Lab work showed leukocytosis, supratherapeutic INR, hypernatremia, hyperchloremia, severe metabolic acidosis, hyperglycemia, hypocalcemia. Patient was admitted to the hospitalist service with consults to CCM, general surgery, infectious disease. Neuro: Sedated, h/o depression, arthritis -prn fent pushes -Avoid delirium -Reorientation as needed -Maintain sleep-wake cycle -PT consulted; recommends LTAC Cardiac: S/p cardiac arrest, h/o htn, PVD s/p stenting Right leg -06/14 cardiac arrest with ROSC -S/p vasopressor support with Levophed and Fabian-Synephrine -Blood pressure monitoring per protocol -Antihypertensive regimen: Hydralazine 100 mg every 8 -06/13 Echocardiogram EF 65-70% Respiratory: Acute hypoxic respiratory failure, right pneumothorax -CCM consulted, appreciate recommendations -S/p emergent cricothyroidectomy with surgery with 8.00 ETT -s/p trach 06/19 with surgery (#[address]) -T-piece trials started 06/26 -ST: Unable to tolerate Passy-Ann valve on 06/28 -A.m. CXR noted -s/p Right chest tube removed 06/29 -06/13 bronchoscopy showed possible blood clot in left lung which may be acting as mucous plug however it was left in place due to possible bleeding inside lung if removed. -CXR post cardiac arrest shows clearance of mucous plug -06/16 CT chest shows moderate right pneumothorax with collapse of right upper lobe, right thoracostomy tube terminates at the collapsed right upper lobe, bilateral bronchus opacities compatible with infectious/inflammatory etiology, bilateral small pleural effusion, extensive subcutaneous air, small fluid collection in the anterior mediastinum is nonspecific -VAP bundle -SPO2 monitoring GI: Protein calorie malnutrition -24 hours +1295 mL -PPI -BR: senna, colace -s/p TPN -Nutrition consult for tube feeding -S/p PEG : Acute kidney injury possibly secondary to vasomotor nephropathy, metabolic acidosis, hypokalemia, metabolic acidosis -Strict intake and output -Renally dose medications -Avoid nephrotoxic medications -Daily weights -Consider nephrology consult if worsens -S/p 7 L LR bolus -FeNa 0.067 -Replete potassium ID: 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 dental caries -CT neck with contrast showed a significant right floor of mild swelling with extension into the submandibular and submental spaces, significant thickening and inflammation involving the right pharyngeal wall, with the parapharyngeal and retropharyngeal spaces at the level of the thyroid cartilage, epiglottis sig nificantly swollen and so are the aryepiglottic folds resulting in significant airway narrowing at this level, no lymphadenopathy, symmetric submandibular and parathyroid glands, S few scattered caries but no periapical lucencies, nonspecific calcification along the right lateral oropharynx, no definite stone seen within the territory of the submandibular gland ducts, no suspicious rashes lesion -Infectious disease and general surgery consulted, appreciate recommendations -s/p cricothyroidectomy -Will follow surgery to direction and treatment of injury -Per surgery may have mucosal injury -Intra-Op findings include post pharyngeal swelling and bruising -Solu-Medrol 125 every 8 -tapering -Per ID: if leucocytosis persists after being off steroids, obtain CT neck with IV contrast to rule out any abscess -Antibiotic therapy Zosyn -COVID-19 PCR negative -f/u blood culture -Monitor WBC and temperature curve -s/p 5L normal saline bolus in ED, 7 L LR bolus in ICU Heme: Coagulopathy, supratherapeutic INR, acute blood loss anemia, possible component of hemorrhagic shock, leukocytosis -Patient is on Coumadin at home -S/p 5 FFP, 8 PRBC, vitamin K x3 -Trend CBC -Presented with H/H of 10.3/34.6 and decreased to 6.7/22.4 -INR 8.18-> 4.55-> 2.1-> 1.23-> 1.16-> 1.31 -Monitor INR -Transfuse hemoglobin less than 7 -Lovenox subq (prophylactic) -Monitor for signs of bleeding -SCDs to BLE while in bed Endo: h/o DM, gout -S/p Lantus 25 units x 1 -Lantus subcu, titrate as needed -Avoid hypoglycemia -SSI -Accu-Cheks q. 6hr Hospital course to date: 06/12: Patient received additional 2 units FFP and 1 unit PRBC and vitamin K today. Overnight critical care placed a femoral CVL. Patient sedated on fentanyl, propofol and Versed. Currently on Fabian-Synephrine and Levophed for blood pressure maintenance. Remains amatory support. Infectious disease c onsulted. Started on sliding scale insulin and recultured. COVID-19 PCR pending. Surgery at bedside to place chest tube. 06/13: Patient was taken back to the OR today for exchange cricothyroid to pos sible tracheostomy. Patient returned with ETT. Chest tube was changed to larger size in the OR. Patient was hypotensive, tachycardic, hypoxic in the OR and received hespan, albumin and an A-line. Upon arrival patient was increased to max dose Levophed for hypotension which has resolved. Titrating vasopressors as tolerated. Remains on sedation with 3 agents. Apparently patient was not ventilating her left lung Intra-Op. Noted to have subcu hematoma and trauma to postpharyngeal area. Questionable decrease cardiac wall motion noted in OR-> will order echocardiogram to further investigate. Patient received additional PRBC today. DIC panel resulted as normal. Patient BUN/creatinine did increase as well as noted to have lactic acidosis. May need IV bolus in addition to pressor use. Likely bronc with Pulmicort today as repeat CXR showed right possible pneumo hydrothorax 06/14: Antibiotics changed to Zosyn per ID, surgical packing removed from neck and makeshift [place] drain placed by surgery and old chronic thyroidectomy site. CXR was completed and RN heard gurgling and blood was noted on dressing. ST elevation noted on bedside monitor and patient was hypoxic. FiO2 increased to 100%. However shortly after patient lost her pulse and ACLS was initiated. Patient received 3 rounds of epinephrine and ROSC was achieved. Stat portable CXR showed resolution of lower lobe collapse on the left and stable right-sided chest tube with hemothorax. [facility] updated family. Patient H/H noted to be 7.2/23.2 and did RN to transfuse prepared PRBC which [facility] blood bank. Bedside echo completed. 06/15: Off sedation, intermittently follows commands, remains on the prednisone. Surgery will reassess airway on Thursday to see if any further support is required. Urine studies indicate prerenal, given IV bolus and started on Clinimix today. 06/16: Patient restarted on fentanyl drip due to hypertension. Given more LR due to CR improvement post LR yesterday. Patient started on Lantus subcu after given one-time dose of Lantus. PICC placed today. Patient had a CT chest today which showed no mediasinusitis but extensive subcutaneous air. 06/17: General Surgery recommended transferring patient to a ENT specialized facility. Placed a call to [facility], spoke with the director medicaid, Dr. Duckworth, who stated that a transfer is possible as long their ENT team accept the patient. Awaiting on a final response. Continue current supportive measures. Basal insulin adjusted for hyperglycemia. 06/18: JEREMIAS overnight. Hypertensive this am, PRN Hydralazine for SBP greater than 160. Remains hyperglycemic, patient is on IV steroids and TPN, basal insulin adjusted. Plan for possible transfer to [place] once an ICU bed is available. 06/19: Low SPO2 and hypotension overnight required Levophed for a short time. Overnight CXR noted with no significant changed. Patient is stable this am and off pressors. Plan for possible Trach and PEG today by General Surgery. 06/20: s/p Trach and PEG. Some bleeding overnight s/p X1 dose of Vitamin K. The bleeding resolved this am, H&H remains stable. Attempted a SAT this am, patient went into SVT, HR in the 160-170 which resolved once sedations were resumed. Plan is to continue to sedation for now, attempt to wean off propofol for a RASS goal of 0 to -2. D/C [facility] plan is to wean off sedation as tolerated for PST for possible extubation. Okay to use PEGT per Gen. Surgery. Nutrition consulted for TF management, TF to start tonight once current TPN bag is completed. BG remains elevated, continue current SSI and basal for now, will start tapering IV steroids tomorrow. FWF added for hyponatremia. Wean off pressors as tolerated for MAP above 65. Possible transfer to [place] for ENT eval. 06/21: Overnight events and CXR noted. Worsen subcutaneous emphysema and Rt. Pneumo. CT remains in place and intact to cont. wall suction. Patient remains hemodynamically stable, still on low vent setting. will continue to monitor for now. Patient is also tolerating enteral nutrition via PEGT, TPN D/benjamín. H&H is also trending down, no s/s of any active bleeding. Will continue to trend H&H, transfuse if hgb is less than 7. FWF increased for hypernatremia. Still waiting on possible transfer to [place]. 06/22: JEREMIAS overnight. Subcutaneous emphysema is unchanged. CXR with mild improvement. Patient remains hemodynamically stable. Hydralazine added Q8hr for HTN. FWF increased for hypernatremia. Awaiting transfer to [place] for ENT eval. 06/23: Over 70cc from CT overnight, subcutaneous emphysema with mild improvement. Patient is also tolerating PST this am. Repeat CXR in the am. Patient is still hypertensive, will added norvasc for better control. Continue FWF for hypernatremia and electrolytes replacement as needed, repeat labs in the am. Darin in wbcs this am, patient remains afebrile and on IV Abx, most likely due to IV steroids continue to monitor. Continue to taper IV steroids. Hyperglycemia is also improving, continue current SSI and basal for now. 06/24: Patient is anemic today and transfused 1 unit PRBC, hypokalemia and h ypophosphatemia repleted, will continue every 6 H/H for now to monitor for bleeding, steroid taper continues, still awaiting transfer to [place], PT/OT consulted, CCM to talk to case management regarding LTAC transfer. 06/25: Patient responded appropriately to yesterday, placed on pressure support trial today. Per CCM hopefully T-piece in the next 24 to 48 hours and will continue decrease steroids further on . Lujan catheter removed today. 06/26: Patient started T-piece trials, H/H remained stable. Surgery plans to remove chest tube once weaned off ventilator. Increasing her water flush given hypernatremia. 06/27: Chest tube placed to waterseal, T-piece trial trials ongoing. Remains on Zosyn and steroids being tapered. Increasing free water flush, insulin and added 3 times daily insulin. 06/28: Hypernatremia persists, started on D5W for 1 L, replace potassium. Chest tube remains to waterseal. 06/29: Chest tube removed by surgery today, hyponatremia better and dextrose disc ontinued, hypokalemia noted which was repleted. Speech did see but patient had decreased voice quality and increased wob so aborted 06/30: Hypokalemia noted on labs will be repleted, leukocytosis continues to improve. Continues on T-piece trials and is following commands. 07/01: Transfer from ICU on 06/30. Patient was stable with a trach and T-piece on 5 L. Tolerating tube feeds. History Interval history: Patient remains on T-piece with trach in place. On 5 L of O2. She is alert and responds appropriately but not well due to trach tube. Tolerating tube feeds. Appears comfortable. No complaints. No new events reported. Hospitalist Physical - Constitutional Vitals: Temp Pulse Resp BP Pulse Ox 98.7 F 98 H 15 153/83 96 07/01/21 19:39 07/01/21 19:39 07/01/21 19:39 07/01/21 19:39 07/01/21 19:39 General appearance: Present: no acute distress, obese (Morbidly obese), other (On T-piece with trach in place.) - EENT Eyes: Present: PERRL, EOM intact ENT: other (Physical skills.) - Neck Neck: Present: supple, other (Trach and T-piece in place) - Respiratory Respiratory effort: normal Respiratory: bilateral: diminished - Cardiovascular Rhythm: regular - Extremities Extremity abnormal: edema - Abdominal General gastrointestinal: soft, non-tender, normal bowel sounds - Integumentary Integumentary: Absent: rash - Psychiatric Psychiatric: appropriate mood/affect - Neurologic Neurologic: moves all extremities (Strength much weaker in both lower extremities likely from deconditioning), other (Awake and alert. Responds appro priately.) HEART Score - HEART Score Troponin: Troponin T < 0.010 ng/mL (0.00-0.029) 06/11/21 23:21 Results - Labs CBC & Chem 7: 07/01/21 05:29 07/01/21 05:29 Labs: Laboratory Last Values WBC 11.9 K/mm3 (4.5-11.0) H 07/01/21 05:29 RBC 3.00 M/mm3 (3.65-5.03) L 07/01/21 05:29 Hgb 8.1 gm/dl (10.1-14.3) L 07/01/21 05:29 Hct 24.4 % (30.3-42.9) L 07/01/21 05:29 MCV 82 fl (79-97) 07/01/21 05:29 MCH 27 pg (28-32) L 07/01/21 05:29 MCHC 33 % (30-34) 07/01/21 05:29 RDW 21.7 % (13.2-15.2) H 07/01/21 05:29 Plt Count 165 K/mm3 (140-440) 07/01/21 05:29 Lymph % (Auto) 3.5 % (13.4-35.0) L 06/21/21 04:42 Lares % (Auto) 11.7 % (0.0-7.3) H 06/21/21 04:42 Eos % (Auto) 0.0 % (0.0-4.3) 06/21/21 04:42 Baso % (Auto) 0.1 % (0.0-1.8) 06/21/21 04:42 Lymph # (Auto) 0.5 K/mm3 (1.2-5.4) L 06/21/21 04:42 Lares # (Auto) 1.8 K/mm3 (0.0-0.8) H 06/21/21 04:42 Eos # (Auto) 0.0 K/mm3 (0.0-0.4) 06/21/21 04:42 Baso # (Auto) 0.0 K/mm3 (0.0-0.1) 06/21/21 04:42 Add Manual Diff Complete 06/30/21 04:25 Total Counted 100 06/30/21 04:25 Seg Neutrophils % 84.7 % (40.0-70.0) H 06/21/21 04:42 Seg Neuts % (Manual) 81.0 % (40.0-70.0) H 06/30/21 04:25 Band Neutrophils % 0 % 06/30/21 04:25 Lymphocytes % (Manual) 10.0 % (13.4-35.0) L 06/30/21 04:25 Reactive Lymphs % (Man) 0 % 06/30/21 04:25 Monocytes % (Manual) 8.0 % (0.0-7.3) H 06/30/21 04:25 Eosinophils % (Manual) 1.0 % (0.0-4.3) 06/30/21 04:25 Basophils % (Manual) 0 % (0.0-1.8) 06/30/21 04:25 Metamyelocytes % 0 % 06/30/21 04:25 Myelocytes % 0 % 06/30/21 04:25 Promyelocytes % 0 % 06/30/21 04:25 Blast Cells % 0 % 06/30/21 04:25 Nucleated RBC % Not Reportable 06/30/21 04:25 Seg Neutrophils # 12.8 K/mm3 (1.8-7.7) H 06/21/21 04:42 Seg Neutrophils # Man 10.5 K/mm3 (1.8-7.7) H 06/30/21 04:25 Band Neutrophils # 0.0 K/mm3 06/30/21 04:25 Lymphocytes # (Manual) 1.3 K/mm3 (1.2-5.4) 06/30/21 04:25 Abs React Lymphs (Man) 0.0 K/mm3 06/30/21 04:25 Monocytes # (Manual) 1.0 K/mm3 (0.0-0.8) H 06/30/21 04:25 Eosinophils # (Manual) 0.1 K/mm3 (0.0-0.4) 06/30/21 04:25 Basophils # (Manual) 0.0 K/mm3 (0.0-0.1) 06/30/21 04:25 Metamyelocytes # 0.0 K/mm3 06/30/21 04:25 Myelocytes # 0.0 K/mm3 06/30/21 04:25 Promyelocytes # 0.0 K/mm3 06/30/21 04:25 Blast Cells # 0.0 K/mm3 06/30/21 04:25 WBC Morphology Not Reportable 06/30/21 04:25 Hypersegmented Neuts Not Reportable 06/30/21 04:25 Hyposegmented Neuts Not Reportable 06/30/21 04:25 Hypogranular Neuts Not Reportable 06/30/21 04:25 Smudge Cells Not Reportable 06/30/21 04:25 Toxic Granulation Not Reportable 06/30/21 04:25 Toxic Vacuolation Not Reportable 06/30/21 04:25 Dohle Bodies Not Reportable 06/30/21 04:25 Pelger-Huet Anomaly Not Reportable 06/30/21 04:25 Dennis Rods Not Reportable 06/30/21 04:25 Platelet Estimate Consistent w auto 06/30/21 04:25 Clumped Platelets Not Reportable 06/30/21 04:25 Plt Clumps, EDTA Not Reportable 06/30/21 04:25 Large Platelets Few 06/30/21 04:25 Giant Platelets Not Reportable 06/30/21 04:25 Platelet Satelliting Not Reportable 06/30/21 04:25 Plt Morphology Comment Not Reportable 06/30/21 04:25 RBC Morphology Not Reportable 06/30/21 04:25 Dimorphic RBCs Not Reportable 06/30/21 04:25 Polychromasia Rare 06/30/21 04:25 Hypochromasia 1+ 06/30/21 04:25 Poikilocytosis Not Reportable 06/30/21 04:25 Anisocytosis 1+ 06/30/21 04:25 Microcytosis Not Reportable 06/30/21 04:25 Macrocytosis Not Reportable 06/30/21 04:25 Spherocytes Not Reportable 06/30/21 04:25 Pappenheimer Bodies Not Reportable 06/30/21 04:25 Sickle Cells Not Reportable 06/30/21 04:25 Target Cells Rare 06/30/21 04:25 Tear Drop Cells Few 06/30/21 04:25 Ovalocytes Not Reportable 06/30/21 04:25 Stomatocytes Few 06/12/21 01:45 Helmet Cells Not Reportable 06/30/21 04:25 Salamanca-Cascade Bodies Not Reportable 06/30/21 04:25 [place] Rings Not Reportable 06/30/21 04:25 Pierce Cells Not Reportable 06/30/21 04:25 Bite Cells Not Reportable 06/30/21 04:25 Crenated Cell Not Reportable 06/30/21 04:25 Elliptocytes Not Reportable 06/30/21 04:25 Acanthocytes (Spur) Not Reportable 06/30/21 04:25 Rouleaux Not Reportable 06/30/21 04:25 Hemoglobin C Crystals Not Reportable 06/30/21 04:25 Schistocytes Not Reportable 06/30/21 04:25 Malaria parasites Not Reportable 06/30/21 04:25 Edin Bodies Not Reportable 06/30/21 04:25 Hem Pathologist Commnt No 06/30/21 04:25 PT 18.3 Sec. (12.2-14.9) H 06/20/21 04:33 INR 1.37 (0.87-1.13) H 06/20/21 04:33 APTT 26.4 Sec. (24.2-36.6) 06/13/21 Unknown Fibrinogen 546 mg/dl (211-480) H 06/13/21 Unknown D-Dimer 1244.63 ng/mlDDU (0-234) H 06/13/21 Unknown ABG pH 7.426 pH Units (7.350-7.450) 06/21/21 04:20 POC ABG pCO2 25.6 mmHg (32.0-48.0) L 06/13/21 04:31 ABG pCO2 35.1 mm Hg 06/21/21 04:20 POC ABG pO2 138.8 mmHg (83-108) H 06/13/21 04:31 ABG pO2 98.5 mm Hg (80.0-90.0) H 06/21/21 04:20 POC ABG HCO3 21.4 06/13/21 04:31 ABG HCO3 22.6 mmol/L (20.0-26.0) 06/21/21 04:20 ABG O2 Saturation 97.7 % (95.0-99.0) 06/21/21 04:20 ABG O2 Content 9.9 (0.0-44) 06/21/21 04:20 POC ABG Base Excess -0.7 06/13/21 04:31 ABG Base Excess -1.6 mmol/L (-2.0-3.0) 06/21/21 04:20 ABG Hemoglobin 7.2 gm/dl (12.0-16.0) L 06/21/21 04:20 ABG Oxyhemoglobin 98.1 (94-98) H 06/13/21 04:31 ABG Carboxyhemoglobin 1.7 % (0.0-5.0) 06/21/21 04:20 ABG Methemoglobin 0.5 % (0.0-1.5) 06/21/21 04:20 Oxyhemoglobin 95.5 % (95.0-99.0) 06/21/21 04:20 Carboxyhemoglobin 0.8 (0.5-1.5) 06/13/21 04:31 FiO2 30 % 06/21/21 04:20 FiO2 % 40.0 06/13/21 04:31 Sodium 143 mmol/L (137-145) 07/01/21 05:29 Potassium 3.7 mmol/L (3.6-5.0) 07/01/21 05:29 Chloride 106.3 mmol/L (98-107) 07/01/21 05:29 Carbon Dioxide 27 mmol/L (22-30) 07/01/21 05:29 Anion Gap 13 mmol/L 07/01/21 05:29 BUN 16 mg/dL (7-17) 07/01/21 05:29 Creatinine 0.9 mg/dL (0.6-1.2) 07/01/21 05:29 Estimated GFR > 60 ml/min 07/01/21 05:29 BUN/Creatinine Ratio 18 % 07/01/21 05:29 Glucose 177 mg/dL (65-100) H 07/01/21 05:29 POC Glucose 184 mg/dL (70-105) H 07/01/21 10:54 Lactic Acid 5.30 mmol/L (0.7-2.0) H* 06/13/21 15:45 Calcium 8.5 mg/dL (8.4-10.2) 07/01/21 05:29 Phosphorus 2.70 mg/dL (2.5-4.5) 07/01/21 05:29 Magnesium 2.10 mg/dL (1.7-2.3) 07/01/21 05:29 Total Bilirubin 0.40 mg/dL (0.1-1.2) 06/15/21 03:56 AST 64 units/L (5-40) H 06/15/21 03:56 ALT 106 units/L (7-56) H 06/15/21 03:56 Alkaline Phosphatase 55 units/L (35-129) 06/15/21 03:56 Troponin T < 0.010 ng/mL (0.00-0.029) 06/11/21 23:21 C-Reactive Protein 3.30 mg/dL (0.00-1.30) H 06/16/21 04:32 Total Protein 5.1 g/dL (6.3-8.2) L 06/15/21 03:56 Albumin 2.9 g/dL (3.9-5) L 06/15/21 03:56 Albumin/Globulin Ratio 1.3 % 06/15/21 03:56 Triglycerides 254 mg/dL (2-149) H 06/21/21 04:42 Urine Color Yellow (Yellow) 06/12/21 17:00 Urine Turbidity Clear (Clear) 06/12/21 17:00 Urine pH 5.0 (5.0-7.0) 06/12/21 17:00 Ur Specific [place] 1.035 (1.003-1.030) H 06/12/21 17:00 Urine Protein 30 mg/dl mg/dL (Negative) 06/12/21 17:00 Urine Glucose (UA) 50 mg/dL (Negative) 06/12/21 17:00 Urine Ketones Tr mg/dL (Negative) 06/12/21 17:00 Urine Blood Neg (Negative) 06/12/21 17:00 Urine Nitrite Neg (Negative) 06/12/21 17:00 Urine Bilirubin Neg (Negative) 06/12/21 17:00 Urine Urobilinogen < 2.0 mg/dL (<2.0) 06/12/21 17:00 Ur Leukocyte Esterase Neg (Negative) 06/12/21 17:00 Urine WBC (Auto) < 1.0 /HPF (0.0-6.0) 06/12/21 17:00 Urine RBC (Auto) < 1.0 /HPF (0.0-6.0) 06/12/21 17:00 Urine Creatinine 81.1 mg/dL (0.1-20.0) H 06/15/21 10:40 Urine Sodium 42 mmol/L 06/15/21 10:40 Coronavirus (PCR) Negative (Negative) 06/12/21 09:50 Blood Type O POSITIVE 06/24/21 06:40 Antibody Screen Negative 06/24/21 06:40 Crossmatch See Detail 06/24/21 06:40 Lujan/IV: Voiding Method Indwelling Catheter Active Medications - Current Medications Current Medications: Generic Name Dose Route Start Last Admin Trade Name Freq PRN Reason Stop Dose Admin Amlodipine Besylate 5 mg 06/23/21 10:00 07/01/21 11:11 Amlodipine 5 Mg Tab PO 5 mg QDAY JOLENE Administration Lipase/Protease/Amylase 1 each 06/19/21 19:20 Lipase 10,500/Protease 25,000/Amylase 43,750 (Units) Dr Melgar FEEDTUBE PRN PRN For Clogged Feeding Tube Atorvastatin Calcium 20 mg 06/22/21 22:00 06/30/21 22:46 Atorvastatin 20 Mg Tab PO 20 mg QHS JOLENE Administration Docusate Sodium 100 mg 06/20/21 10:00 07/01/21 11:12 Docusate Sodium 100 Mg/10 Ml Oral Liqd PO Not Given BID [facility] Enoxaparin Sodium 40 mg 06/30/21 22:00 06/30/21 22:46 Enoxaparin 40 Mg/0.4 Ml Inj SUB-Q 40 mg QDAY@2200 JOLENE Administration Protocol Famotidine 20 mg 06/24/21 22:00 07/01/21 11:00 Famotidine 20 Mg Tab FEEDTUBE 20 mg BID JOLENE Administration Hydralazine HCl 100 mg 06/22/21 19:00 07/01/21 13:59 Hydralazine 100 Mg Tab FEEDTUBE 100 mg Q8HR JOLENE Administration Piperacillin Sod/Tazobactam Sod 4.5 gm in 100 mls @ 200 mls/hr 06/25/21 12:00 07/01/21 18:30 Zosyn/Ns 4.5gm/100ml IV 100 mls/hr Q6HR JOLENE Administration Protocol Insulin Glargine 25 units 06/30/21 22:00 06/30/21 22:45 Insulin Glargine 100 Units/Ml SUB-Q 25 units QHS JOLENE Administration Insulin Human Lispro 0 unit 06/12/21 12:00 07/01/21 18:31 Insulin Lispro 100 Unit/Ml SUB-Q 3 unit Q6HR JOLENE Administration Protocol Labetalol HCl 10 mg 06/21/21 18:00 06/27/21 00:53 Labetalol 20 Mg/4 Ml Inj IV 10 mg Q4HR PRN Administration Hypertension Metoclopramide HCl 10 mg 06/11/21 20:42 Metoclopramide 10 Mg/2 Ml Inj IV Q6H PRN Nausea And Vomiting Ondansetron HCl 4 mg 06/11/21 20:42 Ondansetron 4 Mg/2 Ml Inj IV Q3H PRN Nausea And Vomiting Senna 17.6 mg 06/20/21 10:00 07/01/21 11:13 Sennosides Oral Liqd 8.8 Mg/5 Ml Oral Liqd PO Not Given Q12HR JOLENE Simple Syrup 15 ml 06/19/21 19:20 Simple Syrup 15 Ml FEEDTUBE PRN PRN Hypoglycemia Simple Syrup 30 ml 06/19/21 19:20 Simple Syrup 15 Ml FEEDTUBE PRN PRN Hypoglycemia Sodium Bicarbonate 325 mg 06/19/21 19:20 Sodium Bicarbonate 325 Mg Tab FEEDTUBE PRN PRN For Clogged Feeding Tube Sodium Chloride 10 ml 06/11/21 22:00 07/01/21 11:00 Sodium Chloride 0.9% 10 Ml Flush Syringe IV 10 ml BID JOLENE Administration Sodium Chloride 10 ml 06/11/21 20:42 Sodium Chloride 0.9% 10 Ml Flush Syringe IV PRN PRN LINE FLUSH Nutrition/Malnutrition Assess - Dietary Evaluation Nutrition/Malnutrition Findings: Nutrition Notes Start: 06/16/21 12:10 Freq: Status: Active Protocol: Document 07/01/21 15:58 CANDIDO (Rec: 07/01/21 16:19 CANDIDO [id number]) Nutrition Notes Initial or Follow up Reassessment Current Diagnosis Diabetes,Sepsis,Hypertension, Respiratory Failure Other Pertinent Diagnosis Jeremiah's Angina, (R) Pneumothorax, Coagulopathy, s/ pCardiac Arrest, Gout... Current Diet TF-Vital AF 1.2 Quan @ 50 ml/hr (since D 06/21). Labs/Tests 07/01: Glu 177. Pertinent Medications 07/01: Insulin, others nutritionally unremarkable. Height 5 ft 8 in Weight 119.9 kg Ida Body Weight (kg) 63.63 BMI 40.1 Weight change and time frame 10.584 Kg body weight gain in 15 days reported Weight Status Morbidly Obese Subjective/Other Information RD consult for routine F/U on TF tolerance. TF continues as prescribed, with no significant events noted. Pt continues on Mechanical Ventilation through Tracheostomy, well tolerated, according to Progress notes. Hypernatremia controlled, flush backed off to 80 ml Q 4 hr. Pt still waiting for transfer to [place] or [facility]. Percent of energy/protein needs met: Prescribed Vital AF 1.2 Quan @ 50 ml/hr provides for energy/ protein needs (1,440 Kcal/90 g ) during LOS; 105% Kcal and 71 % AA. Burn Absent Trauma Absent GI Symptoms Other Difficulty In Swallowing,Chewing Food Allergy No Skin Integrity/Comment Surgical wounds. Current % PO Other Minimum of two criteria No #1 Nutrition Diagnosis Inadequate oral intake Diagnosis Progress(for reassessment Continues documentation) Is patient on ventilator? Yes Is Patient Ambulatory and/or Out of Bed No REE-([facility]-confined to bed) 3144.760 Calculation Used for Recommendations 65-70% energy needs Additional Notes Energy needs: 1280-1379kcal/ day Pro needs 2g/kg IBW: 127g/day Fluid needs 1ml/kcal Nutrition Intervention Nutrition Support: Continue Vital AF 1.2 Quan @ 50 ml/hr. Flush: 80 ml water flush Q 4 hr. Kcal 1,440 Protein (gm) 90 Carbohydrates (gm) 133 Fat (gm) 65 Fluid (mL) 973 Fiber (gm) 6 % RDI: 105% Kcal; 71% AA. Goal #1 Provide at least 75% of energy /protein needs through Enteral Feeding during LOS. Goal #2 Maintain body weight within +/ -3% of admission body weight during LOS. Follow-Up By: 07/08/21 Additional Comments Continue monitoring Mechanical Ventilation, Na/Flush, TF tolerance and BM.
[2021-07-01] MEDS: INSULIN GLARGINE 100 UNITS/ML SUB-Q SCH (21:21)
[2021-07-01] MEDS: ENOXAPARIN 40 MG/0.4 ML INJ SUB-Q SCH (21:21)
[2021-07-01] MEDS: FREE WATER PO SCH ×2 (23:01→23:02)
[2021-07-02] MEDS: hydrALAZINE 100 MG TAB FEEDTUBE SCH ×3 (05:23→22:13)
[2021-07-02] MEDS: PIPERACIL/TAZOBACTA 4.5/NS 100 4.5 GM/100 ML VIAL IV SCH ×3 (05:23→18:56)
[2021-07-02] MEDS: INSULIN LISPRO 100 UNIT/ML SUB-Q SCH ×3 (05:50→18:55)
[2021-07-02] MEDS: FAMOTIDINE 20 MG TAB FEEDTUBE SCH ×2 (09:03→22:13)
[2021-07-02] MEDS: ACETAMINOPHEN 325 MG/10.15 ML ORAL LIQD UNIT DOSE FEEDTUBE PRN (09:03)
[2021-07-02] MEDS: amLODIPine 5 MG TAB PO SCH (09:03)
[2021-07-02] MEDS: SENNOSIDES ORAL LIQD 8.8 MG/5 ML ORAL LIQD PO SCH (09:04)
[2021-07-02] MEDS: DOCUSATE SODIUM 100 MG/10 ML ORAL LIQD PO SCH (09:04)
--- NOTE | 2021-07-02 10:13 | Progress Note ---
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 07/02/21: ABG now. Patient did have low grade temp earlier today and still has a white count despite being off steroids. It is trending down. Reviewed ID note and they did mention of persistent consider ct of neck. May need to do this. If done, please scan head as well. Will continue to follow. Spoke with RT about obtaining ABG. 07/01/21: Continue T-piece. Follow up speech recs. Follow up electrolytes. PT/OT. Stable for transfer when bed available 06/30/21: Aggressive replacement of electrolytes. Will repeat chemistry tonight around 8. please call for orders as we would like to keep her K at 4 and Mag at 2. Chemistry in the am. Stable for transfer to telemetry floor. 06/29/21: Speech did see but patient had decreased voice quality and increased wob so aborted. Will ask them to assess again on Thursday. Chest tube out and ordered follow up CXR. Stable for transfer but ok with continuing monitoring in ICU. If bed needed could go to step down. 06/28/21: monitor drainage in ICU for 24 more hours. Can likely come out tomorrow. Continue in ICU for now. Once chest tube out, no objection to transfer. 06/27/21: Will place chest tube to water seal. Instructed staff if any change in respiratory status, place back on suction and obtain CXR. Otherwise will leave off. Continue T-piece as tolerated. Rehab/intermediate/LTACH appropriate. STable for transfer if and when bed becomes available. 06/26/21: T-piece today. If off the vent, agree with surgery and removal of chest tube as subq emphysema is improving as well. PT has seen suggested LTACH, however if we are able to wean she may need intermediate/rehab. Prognosis continues to improve. 06/25/21: Continue PSV as tolerated. Hopeful T-piece in the next 24-48 hours. Will drop steroids down further on . Can switch to daily and even change to oral. PT/OT consult, and follow up recs. May need LTACH vs rehab vs both. Continue to follow. 06/24/21: Daily PSV trials. Maybe ready for T-piece sson. Continue to wean steroids to off. IMS changed to 40q12 which is fine. Continue chest tube until off vent. Still on list for [facility] but will discuss with CM about checking into LTACH as patient will need rehab. PT/OT consult. 06/21/21: Continue current level of sedation. Chest tube does not have air leak but there is clear evidence of a PTX on right. Stripped tube at bedside and will repeat CXR in the morning. Hold on weaning sedation for now and hold on PSV trials. May need second chest tube vs vats if PTX worsens or does not resolve. Patient still on list for [facility], hopeful they will have a bed soon. Drop steroids to 40q8 starting Thursday. Monitor renal function, likely will improve. Needs more free water. Prognosis still remains guarded. 06/20/21: Restart some sedation. At least pain and maybe diprovan. Would like to wake patient up at some point and attempt some PSV trials. Labs are off this am. Large bump in white count but no fever, also no diff drawn. Could be error vs steroid related but this is in just 24 hours. Will repeat tomorrow. If spikes a temp neves culture as well. Small bump in Cr but still in normal range. Will watch. Now that peg in place, tube feeds and free water flushes. Still on list for [facility]. Patient has been steroids greater than 7 days so will have to wean. Can drop to 60q8 starting tomorrow. Prognosis still remains guarded. 06/19/21: surgery to attempt trach and peg today. Still will ask to keep on transfer list for [facility] as her other issues still need to be addressed. If able to place peg, can stop clinimix, give free water and start tube feeds. Prognosis remains guarded. pH better with drop in tidal volume. 06/18/21: [facility] has agreed to accept but no ICU beds available at this time. Spoke with Dr. Vasquez yesterday and Dr. Patricia spoke with ENT there. Spoke with RT this am and patient did have a leak when cuff let down and her tidal volumes dropped to below 100. Patient remains on abx and steriods. Will consider lightening sedation tomorrow and seeing how patient does if cuff leak persists. Dropped tidal volumes to 450. Continue PPN for now. 06/17/21: spoke with surgery and they feel transfer is reasonable. I have reached out to [facility] and [facility] has spoken with someone from [facility]. Await to hear back from them. Continue supportive measures and adequate sedation for pain control. No PSV trials as of yet. Blood sugar control, increase lantus. Most likely secondary to steroids. Continue abx therapy. Guarded prognosis. 06/16/21: Renal function improved with fluids. IMS to give more fluids (LR) today which I agree with. FeNa is =0.7. Should be fluid responsive. Continue clinimix. Needs long acting insulin. Agree with lantus. Asked nursing to increase sedation now that we know that patient's mental status is stable. Picc today. Air leak test vs Neck CT on tomorrow. 06/15/21: Hopeful with worsening renal function ( likely from code on yesterday) that sedatives are just lingering from that. Still making good urine but output has fallen off. Will send urine sodium and urine cr to check Fena. Most likely this is prerenal. ordered renal ultrasound as well. Continue abx and steroids. Will start clinimix today. This should help with the free water piece. Will give another liter bolus of LR right now. Keep sedation off for now. Guarded prognosis. 06/14/21: Will discuss with surgery future plans. They have ordered steroids to help with inflammation and abx continue. All others appears stable and no acute evidence of bleeding at this time. Follow up surgery recs if any new ones. Guarded prognosis. 06/13/21: Patient to back to OR today. BLood transfusion. Will send DIC panel and may need to given cryo if over 6 units of PRBC's given. Patient will likely need trach and peg as we need to address nutrition. Chest tube placed, large bore now. Patient now with right sided effusion. Hemothorax???. Will continue to monitor output. Needs picc line as femoral should come out soon. Continue pressors. Continue sedation for pain control and comfort. Guarded prognosis. Surgery comfortable with neck and current situation so they have not request transfer. 1. Placed right femoral central line. pressors can run through this. 2. Repeat chemistry stat given bicarb of 8 and blood sugar of greater than 600. Ordering FSBS now. Earlier bicarb was 25. If accurate will need bicarb drip and vasopressin but not sure as pH on blood gas was normal done around the same time. 3. Coagulopathy is improving. INR down to 4.55 and PTT and pT improving. Will continue to give FFP. Ordered more vitamin K. H/H is stable but patient is o ozing from neck and mouth. 4. Vasopressor for blood pressure. Need to keep map 65 and greater 5. Lujan is needed for accurate I/O 6. Surgery called by IMS about current CT situation. They state they will reassess in the am. I have reviewed the images myself. If I can position the patient safely without compromising the airway after adequate sedation, may consider placing chest tube now as INR is better and FFP is hanging. Patient is morbidly obese so shits could move the ET tube so if not safe, will wait until surgery comes in the morning. 7. Would not attempt to pass OG or NG tube given current situation in neck 8. Will discuss with surgery tomorrow but I feel this patient should be transferred to a tertiary care facility with ENT as we do not have that service here. CCT 31 minutes. Subjective Date of service: 07/02/21 Interval history: Patient not as awake as previous. Nurse state she was more awake earlier. No pain meds given. Was not initially following commands but now following. Vitals are stable. Objective Vital Signs - 12hr 07/01/21 07/01/21 07/02/21 22:59 23:37 00:00 Temperature 99.6 F Pulse Rate 107 H Pulse Rate [ 98 H From Monitor] Respiratory 18 20 Rate Blood Pressure 156/71 O2 Sat by Pulse 99 100 Oximetry O2 Sat by Pulse 96 Oximetry [ Assessment] 07/02/21 07/02/21 07/02/21 03:37 04:00 04:23 Temperature 99.6 F Pulse Rate 98 H 101 H Pulse Rate [ From Monitor] Respiratory 19 Rate Blood Pressure 145/68 O2 Sat by Pulse 99 Oximetry O2 Sat by Pulse 97 Oximetry [ Assessment] 07/02/21 07/02/21 07/02/21 04:52 07:25 08:00 Temperature 100.4 F H Pulse Rate 104 H Pulse Rate [ From Monitor] Respiratory 18 Rate Blood Pressure 139/71 O2 Sat by Pulse 97 97 Oximetry O2 Sat by Pulse 97 Oximetry [ Assessment] 07/02/21 09:12 Temperature Pulse Rate Pulse Rate [ From Monitor] Respiratory Rate Blood Pressure O2 Sat by Pulse 97 Oximetry O2 Sat by Pulse Oximetry [ Assessment] Constitutional: alert, other (on vent trach in place) Eyes: non-icteric ENT: oropharynx moist Neck: other (trach in place) Ascultation: Bilateral: clear Percussion: Bilateral: not dull Cardiovascular: regular rate and rhythm Gastrointestinal: normoactive bowel sounds, soft Integumentary: other (subq emphysema) Extremities: no edema, other (subq emphysema) Neurologic: normal mental status CBC and BMP: 07/01/21 05:29 07/01/21 05:29 ABG, PT/INR, D-dimer: ABG ABG pH 7.426 pH Units (7.350-7.450) 06/21/21 04:20 POC ABG pCO2 25.6 mmHg (32.0-48.0) L 06/13/21 04:31 ABG pCO2 35.1 mm Hg 06/21/21 04:20 POC ABG pO2 138.8 mmHg (83-108) H 06/13/21 04:31 ABG pO2 98.5 mm Hg (80.0-90.0) H 06/21/21 04:20 POC ABG HCO3 21.4 06/13/21 04:31 ABG O2 Saturation 97.7 % (95.0-99.0) 06/21/21 04:20 PT/INR, D-dimer PT 18.3 Sec. (12.2-14.9) H 06/20/21 04:33 INR 1.37 (0.87-1.13) H 06/20/21 04:33 D-Dimer 1244.63 ng/mlDDU (0-234) H 06/13/21 Unknown Abnormal lab findings: Abnormal Labs 06/11/21 06/11/21 06/11/21 15:23 15:23 19:20 WBC 12.0 H RBC Hgb Hct MCV 72 L MCH 21 L RDW 17.5 H Plt Count Lymph % (Auto) 12.9 L [place] % (Auto) 8.6 H Lymph # (Auto) [place] # (Auto) 1.0 H Seg Neutrophils % 77.4 H Seg Neuts % (Manual) Lymphocytes % (Manual) Monocytes % (Manual) Seg Neutrophils # 9.3 H Seg Neutrophils # Man Lymphocytes # (Manual) Monocytes # (Manual) PT INR APTT Fibrinogen D-Dimer ABG pH POC ABG pCO2 POC ABG pO2 ABG pO2 ABG HCO3 ABG O2 Saturation ABG Base Excess ABG Hemoglobin ABG Oxyhemoglobin Oxyhemoglobin Sodium Potassium Chloride Carbon Dioxide BUN Creatinine Glucose 144 H POC Glucose Lactic Acid Calcium Phosphorus Magnesium AST ALT Alkaline Phosphatase C-Reactive Protein Total Protein Albumin Triglycerides Ur Specific [place] Urine Creatinine Crossmatch See Detail 06/11/21 06/11/21 06/11/21 19:29 19:29 23:21 WBC 15.8 H RBC Hgb 9.4 L Hct MCV 72 L MCH 22 L RDW 17.4 H Plt Count Lymph % (Auto) 9.2 L [place] % (Auto) Lymph # (Auto) [place] # (Auto) Seg Neutrophils % 89.0 H Seg Neuts % (Manual) Lymphocytes % (Manual) Monocytes % (Manual) Seg Neutrophils # 14.0 H Seg Neutrophils # Man Lymphocytes # (Manual) Monocytes # (Manual) PT 72.9 H INR 8.18 H* APTT 71.7 H* Fibrinogen D-Dimer ABG pH POC ABG pCO2 POC ABG pO2 ABG pO2 ABG HCO3 ABG O2 Saturation ABG Base Excess ABG Hemoglobin ABG Oxyhemoglobin Oxyhemoglobin Sodium 149 H D Potassium Chloride 124.3 H Carbon Dioxide 8 L* D BUN Creatinine 0.3 L Glucose 628 H* POC Glucose Lactic Acid Calcium 2.4 L* D Phosphorus Magnesium AST ALT < 5 L Alkaline Phosphatase 19 L C-Reactive Protein Total Protein 1.6 L D Albumin 0.8 L Triglycerides Ur Specific [place] Urine Creatinine Crossmatch 06/11/21 06/11/21 06/11/21 23:21 23:22 23:42 WBC RBC Hgb Hct MCV MCH 27 L RDW 22.2 H Plt Count 131 L Lymph % (Auto) [place] % (Auto) Lymph # (Auto) [place] # (Auto) Seg Neutrophils % Seg Neuts % (Manual) Lymphocytes % (Manual) Monocytes % (Manual) Seg Neutrophils # Seg Neutrophils # Man Lymphocytes # (Manual) Monocytes # (Manual) PT 46.3 H INR 4.55 H APTT 54.8 H Fibrinogen D-Dimer ABG pH POC ABG pCO2 POC ABG pO2 325.9 H ABG pO2 ABG HCO3 ABG O2 Saturation ABG Base Excess ABG Hemoglobin 8.0 L ABG Oxyhemoglobin 99.0 H Oxyhemoglobin Sodium Potassium Chloride Carbon Dioxide BUN Creatinine Glucose POC Glucose Lactic Acid Calcium Phosphorus Magnesium AST ALT Alkaline Phosphatase C-Reactive Protein Total Protein Albumin Triglycerides Ur Specific [place] Urine Creatinine Crossmatch 06/12/21 06/12/21 06/12/21 01:45 01:45 01:45 WBC 21.6 H RBC 3.04 L Hgb 6.7 L D Hct 22.4 L D MCV 74 L MCH 22 L RDW 18.9 H Plt Count Lymph % (Auto) [place] % (Auto) Lymph # (Auto) [place] # (Auto) Seg Neutrophils % Seg Neuts % (Manual) 76.0 H Lymphocytes % (Manual) 2.0 L Monocytes % (Manual) 8.0 H Seg Neutrophils # Seg Neutrophils # Man 16.4 H Lymphocytes # (Manual) 0.4 L Monocytes # (Manual) 1.7 H PT 25.4 H INR 2.10 H APTT Fibrinogen D-Dimer ABG pH POC ABG pCO2 POC ABG pO2 ABG pO2 ABG HCO3 ABG O2 Saturation ABG Base Excess ABG Hemoglobin ABG Oxyhemoglobin Oxyhemoglobin Sodium Potassium 5.6 H D Chloride Carbon Dioxide 20 L D BUN Creatinine Glucose 368 H POC Glucose Lactic Acid Calcium 7.1 L D Phosphorus Magnesium AST ALT Alkaline Phosphatase C-Reactive Protein Total Protein 5.3 L D Albumin 3.1 L Triglycerides Ur Specific Martin Urine Creatinine Crossmatch 06/12/21 06/12/21 06/12/21 02:05 04:41 11:05 WBC 14.6 H RBC 3.52 L Hgb 8.5 L Hct 27.7 L MCV MCH 24 L RDW 20.9 H Plt Count Lymph % (Auto) [place] % (Auto) Lymph # (Auto) [place] # (Auto) Seg Neutrophils % Seg Neuts % (Manual) Lymphocytes % (Manual) Monocytes % (Manual) Seg Neutrophils # Seg Neutrophils # Man Lymphocytes # (Manual) Monocytes # (Manual) PT INR APTT Fibrinogen D-Dimer ABG pH POC ABG pCO2 POC ABG pO2 224.6 H ABG pO2 ABG HCO3 ABG O2 Saturation ABG Base Excess ABG Hemoglobin 7.3 L ABG Oxyhemoglobin 98.7 H Oxyhemoglobin Sodium Potassium Chloride Carbon Dioxide BUN Creatinine Glucose POC Glucose 308 H Lactic Acid Calcium Phosphorus Magnesium AST ALT Alkaline Phosphatase C-Reactive Protein Total Protein Albumin Triglycerides Ur Specific Martin Urine Creatinine Crossmatch 06/12/21 06/12/21 06/12/21 11:05 11:05 12:18 WBC RBC Hgb Hct MCV MCH RDW Plt Count Lymph % (Auto) [place] % (Auto) Lymph # (Auto) [place] # (Auto) Seg Neutrophils % Seg Neuts % (Manual) Lymphocytes % (Manual) Monocytes % (Manual) Seg Neutrophils # Seg Neutrophils # Man Lymphocytes # (Manual) Monocytes # (Manual) PT 16.8 H INR 1.23 H APTT Fibrinogen D-Dimer ABG pH POC ABG pCO2 POC ABG pO2 ABG pO2 ABG HCO3 ABG O2 Saturation ABG Base Excess ABG Hemoglobin ABG Oxyhemoglobin Oxyhemoglobin Sodium Potassium Chloride Carbon Dioxide BUN 24 H Creatinine Glucose 324 H POC Glucose 281 H Lactic Acid Calcium 7.5 L Phosphorus Magnesium AST 70 H ALT 57 H Alkaline Phosphatase C-Reactive Protein Total Protein 6.0 L Albumin 3.6 L Triglycerides Ur Specific Martin Urine Creatinine Crossmatch 06/12/21 06/12/21 06/12/21 17:00 17:00 17:00 WBC RBC Hgb 7.5 L Hct 24.0 L MCV MCH RDW Plt Count Lymph % (Auto) [place] % (Auto) Lymph # (Auto) [place] # (Auto) Seg Neutrophils % Seg Neuts % (Manual) Lymphocytes % (Manual) Monocytes % (Manual) Seg Neutrophils # Seg Neutrophils # Man Lymphocytes # (Manual) Monocytes # (Manual) PT 16.0 H INR 1.16 H APTT Fibrinogen D-Dimer ABG pH POC ABG pCO2 POC ABG pO2 ABG pO2 ABG HCO3 ABG O2 Saturation ABG Base Excess ABG Hemoglobin ABG Oxyhemoglobin Oxyhemoglobin Sodium Potassium Chloride Carbon Dioxide BUN Creatinine Glucose POC Glucose Lactic Acid Calcium Phosphorus Magnesium AST ALT Alkaline Phosphatase C-Reactive Protein Total Protein Albumin Triglycerides Ur Specific Martin 1.035 H Urine Creatinine Crossmatch 06/12/21 06/12/21 06/12/21 18:06 23:00 23:05 WBC RBC Hgb 7.6 L Hct 23.5 L MCV MCH RDW Plt Count Lymph % (Auto) [place] % (Auto) Lymph # (Auto) [place] # (Auto) Seg Neutrophils % Seg Neuts % (Manual) Lymphocytes % (Manual) Monocytes % (Manual) Seg Neutrophils # Seg Neutrophils # Man Lymphocytes # (Manual) Monocytes # (Manual) PT INR APTT Fibrinogen D-Dimer ABG pH POC ABG pCO2 POC ABG pO2 ABG pO2 ABG HCO3 ABG O2 Saturation ABG Base Excess ABG Hemoglobin ABG Oxyhemoglobin Oxyhemoglobin Sodium Potassium Chloride Carbon Dioxide BUN Creatinine Glucose POC Glucose 257 H 300 H Lactic Acid Calcium Phosphorus Magnesium AST ALT Alkaline Phosphatase C-Reactive Protein Total Protein Albumin Triglycerides Ur Specific Martin Urine Creatinine Crossmatch 06/13/21 06/13/21 06/13/21 04:31 05:19 07:30 WBC RBC Hgb 6.8 L Hct 21.7 L MCV MCH RDW Plt Count Lymph % (Auto) [place] % (Auto) Lymph # (Auto) [place] # (Auto) Seg Neutrophils % Seg Neuts % (Manual) Lymphocytes % (Manual) Monocytes % (Manual) Seg Neutrophils # Seg Neutrophils # Man Lymphocytes # (Manual) Monocytes # (Manual) PT INR APTT Fibrinogen D-Dimer ABG pH 7.541 H POC ABG pCO2 25.6 L POC ABG pO2 138.8 H ABG pO2 ABG HCO3 ABG O2 Saturation ABG Base Excess ABG Hemoglobin 7.3 L ABG Oxyhemoglobin 98.1 H Oxyhemoglobin Sodium Potassium Chloride Carbon Dioxide BUN Creatinine Glucose POC Glucose 286 H Lactic Acid Calcium Phosphorus Magnesium AST ALT Alkaline Phosphatase C-Reactive Protein Total Protein Albumin Triglycerides Ur Specific [place] Urine Creatinine Crossmatch 06/13/21 06/13/21 06/13/21 07:30 12:04 14:50 WBC RBC Hgb Hct MCV MCH RDW Plt Count Lymph % (Auto) [place] % (Auto) Lymph # (Auto) [place] # (Auto) Seg Neutrophils % Seg Neuts % (Manual) Lymphocytes % (Manual) Monocytes % (Manual) Seg Neutrophils # Seg Neutrophils # Man Lymphocytes # (Manual) Monocytes # (Manual) PT INR APTT Fibrinogen D-Dimer ABG pH 7.039 L* 7.182 L* POC ABG pCO2 POC ABG pO2 ABG pO2 63.1 L ABG HCO3 17.4 L ABG O2 Saturation 73.4 L ABG Base Excess -12.6 L -7.1 L ABG Hemoglobin 7.7 L 6.9 L ABG Oxyhemoglobin Oxyhemoglobin 71.8 L 93.5 L Sodium Potassium Chloride 108.9 H Carbon Dioxide BUN 28 H Creatinine Glucose 293 H POC Glucose Lactic Acid Calcium 7.2 L Phosphorus Magnesium AST 106 H ALT 92 H Alkaline Phosphatase C-Reactive Protein Total Protein 5.6 L Albumin 3.3 L Triglycerides Ur Specific [place] Urine Creatinine Crossmatch 06/13/21 06/13/21 06/13/21 14:54 15:45 17:34 WBC RBC Hgb Hct MCV MCH RDW Plt Count Lymph % (Auto) [place] % (Auto) Lymph # (Auto) [place] # (Auto) Seg Neutrophils % Seg Neuts % (Manual) Lymphocytes % (Manual) Monocytes % (Manual) Seg Neutrophils # Seg Neutrophils # Man Lymphocytes # (Manual) Monocytes # (Manual) PT INR APTT Fibrinogen D-Dimer ABG pH POC ABG pCO2 POC ABG pO2 ABG pO2 178.4 H ABG HCO3 ABG O2 Saturation 99.1 H ABG Base Excess ABG Hemoglobin 8.0 L ABG Oxyhemoglobin Oxyhemoglobin Sodium Potassium Chloride 107.3 H Carbon Dioxide 19 L BUN 33 H Creatinine 1.5 H Glucose 379 H POC Glucose Lactic Acid 5.30 H* Calcium 6.8 L Phosphorus Magnesium AST ALT Alkaline Phosphatase C-Reactive Protein Total Protein Albumin Triglycerides Ur Specific [place] Urine Creatinine Crossmatch 06/13/21 06/13/21 06/13/21 17:40 23:29 Unknown WBC 22.5 H RBC 3.16 L Hgb 8.0 L Hct 26.0 L MCV MCH 26 L RDW 21.4 H Plt Count Lymph % (Auto) [place] % (Auto) Lymph # (Auto) [place] # (Auto) Seg Neutrophils % Seg Neuts % (Manual) 88.0 H Lymphocytes % (Manual) 4.0 L Monocytes % (Manual) Seg Neutrophils # Seg Neutrophils # Man 19.8 H Lymphocytes # (Manual) 0.9 L Monocytes # (Manual) 1.4 H PT INR APTT Fibrinogen D-Dimer ABG pH POC ABG pCO2 POC ABG pO2 ABG pO2 ABG HCO3 ABG O2 Saturation ABG Base Excess ABG Hemoglobin ABG Oxyhemoglobin Oxyhemoglobin Sodium Potassium Chloride Carbon Dioxide BUN Creatinine Glucose POC Glucose 294 H 288 H Lactic Acid Calcium Phosphorus Magnesium AST ALT Alkaline Phosphatase C-Reactive Protein Total Protein Albumin Triglycerides Ur Specific [place] Urine Creatinine Crossmatch 06/13/21 06/14/21 06/14/21 Unknown 05:39 06:15 WBC RBC 2.93 L Hgb 7.2 L Hct 23.2 L MCV MCH 25 L RDW 21.2 H Plt Count Lymph % (Auto) [place] % (Auto) Lymph # (Auto) [place] # (Auto) Seg Neutrophils % Seg Neuts % (Manual) Lymphocytes % (Manual) Monocytes % (Manual) Seg Neutrophils # Seg Neutrophils # Man Lymphocytes # (Manual) Monocytes # (Manual) PT 17.6 H INR 1.31 H APTT Fibrinogen 546 H D-Dimer 1244.63 H ABG pH POC ABG pCO2 POC ABG pO2 ABG pO2 ABG HCO3 ABG O2 Saturation ABG Base Excess ABG Hemoglobin ABG Oxyhemoglobin Oxyhemoglobin Sodium Potassium Chloride Carbon Dioxide BUN Creatinine Glucose POC Glucose 246 H Lactic Acid Calcium Phosphorus Magnesium AST ALT Alkaline Phosphatase C-Reactive Protein Total Protein Albumin Triglycerides Ur Specific [place] Urine Creatinine Crossmatch 06/14/21 06/14/21 06/14/21 06:15 06:15 09:13 WBC RBC Hgb Hct MCV MCH RDW Plt Count Lymph % (Auto) [place] % (Auto) Lymph # (Auto) [place] # (Auto) Seg Neutrophils % Seg Neuts % (Manual) Lymphocytes % (Manual) Monocytes % (Manual) Seg Neutrophils # Seg Neutrophils # Man Lymphocytes # (Manual) Monocytes # (Manual) PT INR APTT Fibrinogen D-Dimer ABG pH POC ABG pCO2 POC ABG pO2 ABG pO2 183.0 H ABG HCO3 ABG O2 Saturation 99.2 H ABG Base Excess ABG Hemoglobin 6.6 L ABG Oxyhemoglobin Oxyhemoglobin Sodium 147 H Potassium Chloride 112.5 H Carbon Dioxide 21 L BUN 36 H Creatinine 1.4 H Glucose 281 H POC Glucose Lactic Acid Calcium 6.9 L Phosphorus Magnesium AST ALT Alkaline Phosphatase C-Reactive Protein Total Protein Albumin Triglycerides 189 H Ur Specific [place] Urine Creatinine Crossmatch 06/14/21 06/14/21 06/14/21 10:45 12:16 13:30 WBC RBC Hgb 7.1 L Hct 22.3 L MCV MCH RDW Plt Count Lymph % (Auto) [place] % (Auto) Lymph # (Auto) [place] # (Auto) Seg Neutrophils % Seg Neuts % (Manual) Lymphocytes % (Manual) Monocytes % (Manual) Seg Neutrophils # Seg Neutrophils # Man Lymphocytes # (Manual) Monocytes # (Manual) PT INR APTT Fibrinogen D-Dimer ABG pH 7.205 L POC ABG pCO2 POC ABG pO2 ABG pO2 261.3 H ABG HCO3 ABG O2 Saturation 99.4 H ABG Base Excess -7.2 L ABG Hemoglobin 7.6 L ABG Oxyhemoglobin Oxyhemoglobin Sodium Potassium Chloride Carbon Dioxide BUN Creatinine Glucose POC Glucose 174 H Lactic Acid Calcium Phosphorus Magnesium AST ALT Alkaline Phosphatase C-Reactive Protein Total Protein Albumin Triglycerides Ur Specific [place] Urine Creatinine Crossmatch 06/14/21 06/14/21 06/15/21 17:40 18:43 00:06 WBC RBC Hgb Hct MCV MCH RDW Plt Count Lymph % (Auto) [place] % (Auto) Lymph # (Auto) [place] # (Auto) Seg Neutrophils % Seg Neuts % (Manual) Lymphocytes % (Manual) Monocytes % (Manual) Seg Neutrophils # Seg Neutrophils # Man Lymphocytes # (Manual) Monocytes # (Manual) PT INR APTT Fibrinogen D-Dimer ABG pH 7.292 L POC ABG pCO2 POC ABG pO2 ABG pO2 78.8 L ABG HCO3 ABG O2 Saturation ABG Base Excess -5.0 L ABG Hemoglobin 9.1 L ABG Oxyhemoglobin Oxyhemoglobin 93.7 L Sodium Potassium Chloride Carbon Dioxide BUN Creatinine Glucose POC Glucose 182 H 144 H Lactic Acid Calcium Phosphorus Magnesium AST ALT Alkaline Phosphatase C-Reactive Protein Total Protein Albumin Triglycerides Ur Specific [place] Urine Creatinine Crossmatch 06/15/21 06/15/21 06/15/21 03:55 03:56 10:40 WBC RBC Hgb 8.4 L Hct 25.8 L MCV MCH RDW Plt Count Lymph % (Auto) [place] % (Auto) Lymph # (Auto) [place] # (Auto) Seg Neutrophils % Seg Neuts % (Manual) Lymphocytes % (Manual) Monocytes % (Manual) Seg Neutrophils # Seg Neutrophils # Man Lymphocytes # (Manual) Monocytes # (Manual) PT INR APTT Fibrinogen D-Dimer ABG pH POC ABG pCO2 POC ABG pO2 ABG pO2 ABG HCO3 ABG O2 Saturation ABG Base Excess ABG Hemoglobin ABG Oxyhemoglobin Oxyhemoglobin Sodium 147 H Potassium Chloride 112.2 H Carbon Dioxide 21 L BUN 47 H Creatinine 1.9 H Glucose 272 H POC Glucose Lactic Acid Calcium 7.3 L Phosphorus Magnesium AST 64 H ALT 106 H Alkaline Phosphatase C-Reactive Protein Total Protein 5.1 L Albumin 2.9 L Triglycerides Ur Specific [place] Urine Creatinine 81.1 H Crossmatch 06/15/21 06/15/21 06/15/21 11:46 17:16 23:17 WBC RBC Hgb Hct MCV MCH RDW Plt Count Lymph % (Auto) [place] % (Auto) Lymph # (Auto) [place] # (Auto) Seg Neutrophils % Seg Neuts % (Manual) Lymphocytes % (Manual) Monocytes % (Manual) Seg Neutrophils # Seg Neutrophils # Man Lymphocytes # (Manual) Monocytes # (Manual) PT INR APTT Fibrinogen D-Dimer ABG pH POC ABG pCO2 POC ABG pO2 ABG pO2 ABG HCO3 ABG O2 Saturation ABG Base Excess ABG Hemoglobin ABG Oxyhemoglobin Oxyhemoglobin Sodium Potassium Chloride Carbon Dioxide BUN Creatinine Glucose POC Glucose 271 H 268 H 264 H Lactic Acid Calcium Phosphorus Magnesium AST ALT Alkaline Phosphatase C-Reactive Protein Total Protein Albumin Triglycerides Ur Specific [place] Urine Creatinine Crossmatch 06/15/21 06/15/21 06/16/21 Unknown Unknown 04:32 WBC RBC 3.21 L 3.16 L Hgb 8.4 L 8.2 L Hct 26.1 L 25.4 L MCV MCH 26 L 26 L RDW 21.3 H 21.2 H Plt Count 105 L 118 L Lymph % (Auto) [place] % (Auto) Lymph # (Auto) [place] # (Auto) Seg Neutrophils % Seg Neuts % (Manual) Lymphocytes % (Manual) Monocytes % (Manual) Seg Neutrophils # Seg Neutrophils # Man Lymphocytes # (Manual) Monocytes # (Manual) PT INR APTT Fibrinogen D-Dimer ABG pH 7.465 H POC ABG pCO2 POC ABG pO2 ABG pO2 114.1 H ABG HCO3 ABG O2 Saturation ABG Base Excess ABG Hemoglobin 8.4 L ABG Oxyhemoglobin Oxyhemoglobin Sodium Potassium Chloride Carbon Dioxide BUN Creatinine Glucose POC Glucose Lactic Acid Calcium Phosphorus Magnesium AST ALT Alkaline Phosphatase C-Reactive Protein Total Protein Albumin Triglycerides Ur Specific [place] Urine Creatinine Crossmatch 06/16/21 06/16/21 06/16/21 04:32 04:32 05:08 WBC RBC Hgb Hct MCV MCH RDW Plt Count Lymph % (Auto) [place] % (Auto) Lymph # (Auto) [place] # (Auto) Seg Neutrophils % Seg Neuts % (Manual) Lymphocytes % (Manual) Monocytes % (Manual) Seg Neutrophils # Seg Neutrophils # Man Lymphocytes # (Manual) Monocytes # (Manual) PT INR APTT Fibrinogen D-Dimer ABG pH POC ABG pCO2 POC ABG pO2 ABG pO2 ABG HCO3 ABG O2 Saturation ABG Base Excess ABG Hemoglobin ABG Oxyhemoglobin Oxyhemoglobin Sodium 148 H Potassium 3.3 L Chloride 115.1 H Carbon Dioxide 21 L BUN 54 H Creatinine 1.6 H Glucose 367 H POC Glucose 356 H Lactic Acid Calcium 7.4 L Phosphorus Magnesium AST ALT Alkaline Phosphatase C-Reactive Protein 3.30 H Total Protein Albumin Triglycerides Ur Specific [place] Urine Creatinine Crossmatch 06/16/21 06/16/21 06/16/21 05:30 11:46 17:03 WBC RBC Hgb Hct MCV MCH RDW Plt Count Lymph % (Auto) [place] % (Auto) Lymph # (Auto) [place] # (Auto) Seg Neutrophils % Seg Neuts % (Manual) Lymphocytes % (Manual) Monocytes % (Manual) Seg Neutrophils # Seg Neutrophils # Man Lymphocytes # (Manual) Monocytes # (Manual) PT INR APTT Fibrinogen D-Dimer ABG pH 7.475 H POC ABG pCO2 POC ABG pO2 ABG pO2 171.8 H ABG HCO3 ABG O2 Saturation 99.1 H ABG Base Excess ABG Hemoglobin 11.7 L ABG Oxyhemoglobin Oxyhemoglobin Sodium Potassium Chloride Carbon Dioxide BUN Creatinine Glucose POC Glucose 309 H 345 H Lactic Acid Calcium Phosphorus Magnesium AST ALT Alkaline Phosphatase C-Reactive Protein Total Protein Albumin Triglycerides Ur Specific [place] Urine Creatinine Crossmatch 06/16/21 06/16/21 06/17/21 20:18 23:22 04:50 WBC RBC Hgb Hct MCV MCH RDW Plt Count Lymph % (Auto) [place] % (Auto) Lymph # (Auto) [place] # (Auto) Seg Neutrophils % Seg Neuts % (Manual) Lymphocytes % (Manual) Monocytes % (Manual) Seg Neutrophils # Seg Neutrophils # Man Lymphocytes # (Manual) Monocytes # (Manual) PT INR APTT Fibrinogen D-Dimer ABG pH 7.479 H POC ABG pCO2 POC ABG pO2 ABG pO2 143.1 H ABG HCO3 ABG O2 Saturation ABG Base Excess ABG Hemoglobin 10.0 L ABG Oxyhemoglobin Oxyhemoglobin Sodium Potassium Chloride Carbon Dioxide BUN Creatinine Glucose POC Glucose 325 H 315 H Lactic Acid Calcium Phosphorus Magnesium AST ALT Alkaline Phosphatase C-Reactive Protein Total Protein Albumin Triglycerides Ur Specific [place] Urine Creatinine Crossmatch 06/17/21 06/17/21 06/17/21 05:18 05:30 05:30 WBC RBC 3.17 L Hgb 8.2 L Hct 25.5 L MCV MCH 26 L RDW 21.2 H Plt Count 128 L Lymph % (Auto) [place] % (Auto) Lymph # (Auto) [place] # (Auto) Seg Neutrophils % Seg Neuts % (Manual) Lymphocytes % (Manual) Monocytes % (Manual) Seg Neutrophils # Seg Neutrophils # Man Lymphocytes # (Manual) Monocytes # (Manual) PT INR APTT Fibrinogen D-Dimer ABG pH POC ABG pCO2 POC ABG pO2 ABG pO2 ABG HCO3 ABG O2 Saturation ABG Base Excess ABG Hemoglobin ABG Oxyhemoglobin Oxyhemoglobin Sodium 148 H Potassium Chloride 113.7 H Carbon Dioxide 20 L BUN 57 H Creatinine 1.4 H Glucose 351 H POC Glucose 324 H Lactic Acid Calcium 8.0 L Phosphorus 2.30 L Magnesium AST ALT Alkaline Phosphatase C-Reactive Protein Total Protein Albumin Triglycerides Ur Specific [place] Urine Creatinine Crossmatch 06/17/21 06/17/21 06/17/21 11:49 17:43 21:42 WBC RBC Hgb Hct MCV MCH RDW Plt Count Lymph % (Auto) [place] % (Auto) Lymph # (Auto) [place] # (Auto) Seg Neutrophils % Seg Neuts % (Manual) Lymphocytes % (Manual) Monocytes % (Manual) Seg Neutrophils # Seg Neutrophils # Man Lymphocytes # (Manual) Monocytes # (Manual) PT INR APTT Fibrinogen D-Dimer ABG pH POC ABG pCO2 POC ABG pO2 ABG pO2 ABG HCO3 ABG O2 Saturation ABG Base Excess ABG Hemoglobin ABG Oxyhemoglobin Oxyhemoglobin Sodium Potassium Chloride Carbon Dioxide BUN Creatinine Glucose POC Glucose 305 H 307 H 286 H Lactic Acid Calcium Phosphorus Magnesium AST ALT Alkaline Phosphatase C-Reactive Protein Total Protein Albumin Triglycerides Ur Specific [place] Urine Creatinine Crossmatch 06/17/21 06/18/21 06/18/21 23:59 04:20 04:37 WBC RBC 3.53 L Hgb 9.1 L Hct 28.7 L MCV MCH 26 L RDW 21.3 H Plt Count Lymph % (Auto) [place] % (Auto) Lymph # (Auto) [place] # (Auto) Seg Neutrophils % Seg Neuts % (Manual) Lymphocytes % (Manual) Monocytes % (Manual) Seg Neutrophils # Seg Neutrophils # Man Lymphocytes # (Manual) Monocytes # (Manual) PT INR APTT Fibrinogen D-Dimer ABG pH 7.495 H POC ABG pCO2 POC ABG pO2 ABG pO2 108.3 H ABG HCO3 ABG O2 Saturation ABG Base Excess -2.1 L ABG Hemoglobin 10.0 L ABG Oxyhemoglobin Oxyhemoglobin Sodium Potassium Chloride Carbon Dioxide BUN Creatinine Glucose POC Glucose 264 H Lactic Acid Calcium Phosphorus Magnesium AST ALT Alkaline Phosphatase C-Reactive Protein Total Protein Albumin Triglycerides Ur Specific [place] Urine Creatinine Crossmatch 06/18/21 06/18/21 06/18/21 04:37 05:32 11:21 WBC RBC Hgb Hct MCV MCH RDW Plt Count Lymph % (Auto) [place] % (Auto) Lymph # (Auto) [place] # (Auto) Seg Neutrophils % Seg Neuts % (Manual) Lymphocytes % (Manual) Monocytes % (Manual) Seg Neutrophils # Seg Neutrophils # Man Lymphocytes # (Manual) Monocytes # (Manual) PT INR APTT Fibrinogen D-Dimer ABG pH POC ABG pCO2 POC ABG pO2 ABG pO2 ABG HCO3 ABG O2 Saturation ABG Base Excess ABG Hemoglobin ABG Oxyhemoglobin Oxyhemoglobin Sodium 148 H Potassium Chloride 114.7 H Carbon Dioxide BUN 59 H Creatinine 1.3 H Glucose 329 H POC Glucose 293 H 291 H Lactic Acid Calcium 8.1 L Phosphorus Magnesium AST ALT Alkaline Phosphatase C-Reactive Protein Total Protein Albumin Triglycerides Ur Specific [place] Urine Creatinine Crossmatch 06/18/21 06/18/21 06/19/21 18:21 21:46 00:15 WBC RBC Hgb Hct MCV MCH RDW Plt Count Lymph % (Auto) [place] % (Auto) Lymph # (Auto) [place] # (Auto) Seg Neutrophils % Seg Neuts % (Manual) Lymphocytes % (Manual) Monocytes % (Manual) Seg Neutrophils # Seg Neutrophils # Man Lymphocytes # (Manual) Monocytes # (Manual) PT INR APTT Fibrinogen D-Dimer ABG pH POC ABG pCO2 POC ABG pO2 ABG pO2 ABG HCO3 ABG O2 Saturation ABG Base Excess ABG Hemoglobin ABG Oxyhemoglobin Oxyhemoglobin Sodium Potassium Chloride Carbon Dioxide BUN Creatinine Glucose POC Glucose 239 H 259 H 310 H Lactic Acid Calcium Phosphorus Magnesium AST ALT Alkaline Phosphatase C-Reactive Protein Total Protein Albumin Triglycerides Ur Specific [place] Urine Creatinine Crossmatch 06/19/21 06/19/21 06/19/21 04:00 04:00 04:50 WBC RBC 3.64 L Hgb 9.1 L Hct 29.1 L MCV MCH 25 L RDW 21.5 H Plt Count Lymph % (Auto) [place] % (Auto) Lymph # (Auto) [place] # (Auto) Seg Neutrophils % Seg Neuts % (Manual) Lymphocytes % (Manual) Monocytes % (Manual) Seg Neutrophils # Seg Neutrophils # Man Lymphocytes # (Manual) Monocytes # (Manual) PT INR APTT Fibrinogen D-Dimer ABG pH POC ABG pCO2 POC ABG pO2 ABG pO2 78.9 L ABG HCO3 ABG O2 Saturation ABG Base Excess -3.2 L ABG Hemoglobin 7.6 L ABG Oxyhemoglobin Oxyhemoglobin Sodium 148 H Potassium Chloride 114.9 H Carbon Dioxide 19 L BUN 59 H Creatinine Glucose 345 H POC Glucose Lactic Acid Calcium 8.1 L Phosphorus 4.60 H D Magnesium 2.40 H AST ALT Alkaline Phosphatase C-Reactive Protein Total Protein Albumin Triglycerides Ur Specific [place] Urine Creatinine Crossmatch 06/19/21 06/19/21 06/19/21 06:28 11:11 17:20 WBC RBC Hgb Hct MCV MCH RDW Plt Count Lymph % (Auto) [place] % (Auto) Lymph # (Auto) [place] # (Auto) Seg Neutrophils % Seg Neuts % (Manual) Lymphocytes % (Manual) Monocytes % (Manual) Seg Neutrophils # Seg Neutrophils # Man Lymphocytes # (Manual) Monocytes # (Manual) PT 29.7 H INR 2.57 H APTT Fibrinogen D-Dimer ABG pH POC ABG pCO2 POC ABG pO2 ABG pO2 ABG HCO3 ABG O2 Saturation ABG Base Excess ABG Hemoglobin ABG Oxyhemoglobin Oxyhemoglobin Sodium Potassium Chloride Carbon Dioxide BUN Creatinine Glucose POC Glucose 279 H 275 H Lactic Acid Calcium Phosphorus Magnesium AST ALT Alkaline Phosphatase C-Reactive Protein Total Protein Albumin Triglycerides Ur Specific [place] Urine Creatinine Crossmatch 06/19/21 06/19/21 06/19/21 18:30 19:20 23:27 WBC RBC Hgb 8.0 L Hct 25.0 L MCV MCH RDW Plt Count Lymph % (Auto) [place] % (Auto) Lymph # (Auto) [place] # (Auto) Seg Neutrophils % Seg Neuts % (Manual) Lymphocytes % (Manual) Monocytes % (Manual) Seg Neutrophils # Seg Neutrophils # Man Lymphocytes # (Manual) Monocytes # (Manual) PT INR APTT Fibrinogen D-Dimer ABG pH POC ABG pCO2 POC ABG pO2 ABG pO2 ABG HCO3 ABG O2 Saturation ABG Base Excess ABG Hemoglobin ABG Oxyhemoglobin Oxyhemoglobin Sodium Potassium Chloride Carbon Dioxide BUN Creatinine Glucose POC Glucose 279 H 290 H Lactic Acid Calcium Phosphorus Magnesium AST ALT Alkaline Phosphatase C-Reactive Protein Total Protein Albumin Triglycerides Ur Specific [place] Urine Creatinine Crossmatch 06/20/21 06/20/21 06/20/21 00:00 04:33 04:33 WBC 22.3 H RBC 3.31 L Hgb 7.4 L 8.5 L Hct 22.5 L 26.5 L MCV MCH 26 L RDW 21.5 H Plt Count Lymph % (Auto) [place] % (Auto) Lymph # (Auto) [place] # (Auto) Seg Neutrophils % Seg Neuts % (Manual) Lymphocytes % (Manual) Monocytes % (Manual) Seg Neutrophils # Seg Neutrophils # Man Lymphocytes # (Manual) Monocytes # (Manual) PT INR APTT Fibrinogen D-Dimer ABG pH POC ABG pCO2 POC ABG pO2 ABG pO2 ABG HCO3 ABG O2 Saturation ABG Base Excess ABG Hemoglobin ABG Oxyhemoglobin Oxyhemoglobin Sodium 148 H Potassium Chloride 114.2 H Carbon Dioxide BUN 70 H Creatinine 1.4 H Glucose 313 H POC Glucose Lactic Acid Calcium 8.2 L Phosphorus Magnesium 2.50 H AST ALT Alkaline Phosphatase C-Reactive Protein Total Protein Albumin Triglycerides Ur Specific [place] Urine Creatinine Crossmatch 06/20/21 06/20/21 06/20/21 04:33 05:27 11:21 WBC RBC Hgb Hct MCV MCH RDW Plt Count Lymph % (Auto) [place] % (Auto) Lymph # (Auto) [place] # (Auto) Seg Neutrophils % Seg Neuts % (Manual) Lymphocytes % (Manual) Monocytes % (Manual) Seg Neutrophils # Seg Neutrophils # Man Lymphocytes # (Manual) Monocytes # (Manual) PT 18.3 H INR 1.37 H APTT Fibrinogen D-Dimer ABG pH POC ABG pCO2 POC ABG pO2 ABG pO2 ABG HCO3 ABG O2 Saturation ABG Base Excess ABG Hemoglobin ABG Oxyhemoglobin Oxyhemoglobin Sodium Potassium Chloride Carbon Dioxide BUN Creatinine Glucose POC Glucose 288 H 306 H Lactic Acid Calcium Phosphorus Magnesium AST ALT Alkaline Phosphatase C-Reactive Protein Total Protein Albumin Triglycerides Ur Specific [place] Urine Creatinine Crossmatch 06/20/21 06/20/21 06/20/21 12:23 15:56 18:20 WBC RBC Hgb 8.2 L 8.1 L Hct 25.9 L 25.5 L MCV MCH RDW Plt Count Lymph % (Auto) [place] % (Auto) Lymph # (Auto) [place] # (Auto) Seg Neutrophils % Seg Neuts % (Manual) Lymphocytes % (Manual) Monocytes % (Manual) Seg Neutrophils # Seg Neutrophils # Man Lymphocytes # (Manual) Monocytes # (Manual) PT INR APTT Fibrinogen D-Dimer ABG pH POC ABG pCO2 POC ABG pO2 ABG pO2 ABG HCO3 ABG O2 Saturation ABG Base Excess ABG Hemoglobin ABG Oxyhemoglobin Oxyhemoglobin Sodium Potassium Chloride Carbon Dioxide BUN Creatinine Glucose POC Glucose 293 H Lactic Acid Calcium Phosphorus Magnesium AST ALT Alkaline Phosphatase C-Reactive Protein Total Protein Albumin Triglycerides Ur Specific [place] Urine Creatinine Crossmatch 06/20/21 06/21/21 06/21/21 23:11 04:20 04:42 WBC 15.1 H RBC 2.84 L Hgb 7.3 L Hct 23.1 L MCV MCH 26 L RDW 21.5 H Plt Count Lymph % (Auto) 3.5 L [place] % (Auto) 11.7 H Lymph # (Auto) 0.5 L [place] # (Auto) 1.8 H Seg Neutrophils % 84.7 H Seg Neuts % (Manual) Lymphocytes % (Manual) Monocytes % (Manual) Seg Neutrophils # 12.8 H Seg Neutrophils # Man Lymphocytes # (Manual) Monocytes # (Manual) PT INR APTT Fibrinogen D-Dimer ABG pH POC ABG pCO2 POC ABG pO2 ABG pO2 98.5 H ABG HCO3 ABG O2 Saturation ABG Base Excess ABG Hemoglobin 7.2 L ABG Oxyhemoglobin Oxyhemoglobin Sodium Potassium Chloride Carbon Dioxide BUN Creatinine Glucose POC Glucose 206 H Lactic Acid Calcium Phosphorus Magnesium AST ALT Alkaline Phosphatase C-Reactive Protein Total Protein Albumin Triglycerides Ur Specific [place] Urine Creatinine Crossmatch 06/21/21 06/21/21 06/21/21 04:42 05:08 11:06 WBC RBC Hgb Hct MCV MCH RDW Plt Count Lymph % (Auto) [place] % (Auto) Lymph # (Auto) [place] # (Auto) Seg Neutrophils % Seg Neuts % (Manual) Lymphocytes % (Manual) Monocytes % (Manual) Seg Neutrophils # Seg Neutrophils # Man Lymphocytes # (Manual) Monocytes # (Manual) PT INR APTT Fibrinogen D-Dimer ABG pH POC ABG pCO2 POC ABG pO2 ABG pO2 ABG HCO3 ABG O2 Saturation ABG Base Excess ABG Hemoglobin ABG Oxyhemoglobin Oxyhemoglobin Sodium 151 H Potassium Chloride 117.2 H Carbon Dioxide 21 L BUN 75 H Creatinine 1.6 H Glucose 216 H POC Glucose 190 H 204 H Lactic Acid Calcium 7.9 L Phosphorus Magnesium 2.60 H AST ALT Alkaline Phosphatase C-Reactive Protein Total Protein Albumin Triglycerides 254 H Ur Specific [place] Urine Creatinine Crossmatch 06/21/21 06/21/21 06/21/21 14:00 16:42 21:52 WBC RBC Hgb 7.1 L 7.2 L Hct 22.0 L 22.1 L MCV MCH RDW Plt Count Lymph % (Auto) [place] % (Auto) Lymph # (Auto) [place] # (Auto) Seg Neutrophils % Seg Neuts % (Manual) Lymphocytes % (Manual) Monocytes % (Manual) Seg Neutrophils # Seg Neutrophils # Man Lymphocytes # (Manual) Monocytes # (Manual) PT INR APTT Fibrinogen D-Dimer ABG pH POC ABG pCO2 POC ABG pO2 ABG pO2 ABG HCO3 ABG O2 Saturation ABG Base Excess ABG Hemoglobin ABG Oxyhemoglobin Oxyhemoglobin Sodium Potassium Chloride Carbon Dioxide BUN Creatinine Glucose POC Glucose 207 H Lactic Acid Calcium Phosphorus Magnesium AST ALT Alkaline Phosphatase C-Reactive Protein Total Protein Albumin Triglycerides Ur Specific [place] Urine Creatinine Crossmatch 06/21/21 06/22/21 06/22/21 23:29 04:30 04:30 WBC 16.8 H RBC 2.93 L Hgb 7.4 L Hct 23.9 L MCV MCH 25 L RDW 21.8 H Plt Count Lymph % (Auto) [place] % (Auto) Lymph # (Auto) [place] # (Auto) Seg Neutrophils % Seg Neuts % (Manual) Lymphocytes % (Manual) Monocytes % (Manual) Seg Neutrophils # Seg Neutrophils # Man Lymphocytes # (Manual) Monocytes # (Manual) PT INR APTT Fibrinogen D-Dimer ABG pH POC ABG pCO2 POC ABG pO2 ABG pO2 ABG HCO3 ABG O2 Saturation ABG Base Excess ABG Hemoglobin ABG Oxyhemoglobin Oxyhemoglobin Sodium 151 H Potassium Chloride 118.7 H Carbon Dioxide BUN 57 H Creatinine Glucose 238 H POC Glucose 273 H Lactic Acid Calcium 8.0 L Phosphorus Magnesium 2.70 H AST ALT Alkaline Phosphatase C-Reactive Protein Total Protein Albumin Triglycerides Ur Specific [place] Urine Creatinine Crossmatch 06/22/21 06/22/21 06/22/21 05:17 11:31 14:20 WBC RBC Hgb 7.4 L Hct 22.5 L MCV MCH RDW Plt Count Lymph % (Auto) [place] % (Auto) Lymph # (Auto) [place] # (Auto) Seg Neutrophils % Seg Neuts % (Manual) Lymphocytes % (Manual) Monocytes % (Manual) Seg Neutrophils # Seg Neutrophils # Man Lymphocytes # (Manual) Monocytes # (Manual) PT INR APTT Fibrinogen D-Dimer ABG pH POC ABG pCO2 POC ABG pO2 ABG pO2 ABG HCO3 ABG O2 Saturation ABG Base Excess ABG Hemoglobin ABG Oxyhemoglobin Oxyhemoglobin Sodium Potassium Chloride Carbon Dioxide BUN Creatinine Glucose POC Glucose 214 H 214 H Lactic Acid Calcium Phosphorus Magnesium AST ALT Alkaline Phosphatase C-Reactive Protein Total Protein Albumin Triglycerides Ur Specific [place] Urine Creatinine Crossmatch 06/22/21 06/22/21 06/23/21 17:18 23:47 05:33 WBC RBC Hgb Hct MCV MCH RDW Plt Count Lymph % (Auto) [place] % (Auto) Lymph # (Auto) [place] # (Auto) Seg Neutrophils % Seg Neuts % (Manual) Lymphocytes % (Manual) Monocytes % (Manual) Seg Neutrophils # Seg Neutrophils # Man Lymphocytes # (Manual) Monocytes # (Manual) PT INR APTT Fibrinogen D-Dimer ABG pH POC ABG pCO2 POC ABG pO2 ABG pO2 ABG HCO3 ABG O2 Saturation ABG Base Excess ABG Hemoglobin ABG Oxyhemoglobin Oxyhemoglobin Sodium Potassium Chloride Carbon Dioxide BUN Creatinine Glucose POC Glucose 238 H 227 H 202 H Lactic Acid Calcium Phosphorus Magnesium AST ALT Alkaline Phosphatase C-Reactive Protein Total Protein Albumin Triglycerides Ur Specific [place] Urine Creatinine Crossmatch 06/23/21 06/23/21 06/23/21 10:04 10:04 11:06 WBC 20.3 H RBC 2.71 L Hgb 7.3 L Hct 21.8 L MCV MCH 27 L RDW 22.1 H Plt Count Lymph % (Auto) [place] % (Auto) Lymph # (Auto) [place] # (Auto) Seg Neutrophils % Seg Neuts % (Manual) Lymphocytes % (Manual) Monocytes % (Manual) Seg Neutrophils # Seg Neutrophils # Man Lymphocytes # (Manual) Monocytes # (Manual) PT INR APTT Fibrinogen D-Dimer ABG pH POC ABG pCO2 POC ABG pO2 ABG pO2 ABG HCO3 ABG O2 Saturation ABG Base Excess ABG Hemoglobin ABG Oxyhemoglobin Oxyhemoglobin Sodium 151 H Potassium 3.2 L Chloride 116.9 H Carbon Dioxide BUN 40 H Creatinine Glucose 208 H POC Glucose 204 H Lactic Acid Calcium 8.0 L Phosphorus 1.80 L D Magnesium AST ALT Alkaline Phosphatase C-Reactive Protein Total Protein Albumin Triglycerides Ur Specific [place] Urine Creatinine Crossmatch 06/23/21 06/23/21 06/24/21 16:11 23:47 04:00 WBC 16.9 H RBC 2.49 L Hgb 6.6 L Hct 20.3 L MCV MCH 26 L RDW 22.6 H Plt Count Lymph % (Auto) [place] % (Auto) Lymph # (Auto) [place] # (Auto) Seg Neutrophils % Seg Neuts % (Manual) Lymphocytes % (Manual) Monocytes % (Manual) Seg Neutrophils # Seg Neutrophils # Man Lymphocytes # (Manual) Monocytes # (Manual) PT INR APTT Fibrinogen D-Dimer ABG pH POC ABG pCO2 POC ABG pO2 ABG pO2 ABG HCO3 ABG O2 Saturation ABG Base Excess ABG Hemoglobin ABG Oxyhemoglobin Oxyhemoglobin Sodium Potassium Chloride Carbon Dioxide BUN Creatinine Glucose POC Glucose 228 H 189 H Lactic Acid Calcium Phosphorus Magnesium AST ALT Alkaline Phosphatase C-Reactive Protein Total Protein Albumin Triglycerides Ur Specific [place] Urine Creatinine Crossmatch 06/24/21 06/24/21 06/24/21 04:00 05:43 06:40 WBC RBC Hgb Hct MCV MCH RDW Plt Count Lymph % (Auto) [place] % (Auto) Lymph # (Auto) [place] # (Auto) Seg Neutrophils % Seg Neuts % (Manual) Lymphocytes % (Manual) Monocytes % (Manual) Seg Neutrophils # Seg Neutrophils # Man Lymphocytes # (Manual) Monocytes # (Manual) PT INR APTT Fibrinogen D-Dimer ABG pH POC ABG pCO2 POC ABG pO2 ABG pO2 ABG HCO3 ABG O2 Saturation ABG Base Excess ABG Hemoglobin ABG Oxyhemoglobin Oxyhemoglobin Sodium 148 H Potassium 3.2 L Chloride 115.6 H Carbon Dioxide BUN 35 H Creatinine Glucose 153 H POC Glucose 134 H Lactic Acid Calcium 7.9 L Phosphorus 2.40 L D Magnesium AST ALT Alkaline Phosphatase C-Reactive Protein Total Protein Albumin Triglycerides Ur Specific [place] Urine Creatinine Crossmatch See Detail 06/24/21 06/24/21 06/24/21 11:08 16:47 21:49 WBC RBC Hgb Hct MCV MCH RDW Plt Count Lymph % (Auto) [place] % (Auto) Lymph # (Auto) [place] # (Auto) Seg Neutrophils % Seg Neuts % (Manual) Lymphocytes % (Manual) Monocytes % (Manual) Seg Neutrophils # Seg Neutrophils # Man Lymphocytes # (Manual) Monocytes # (Manual) PT INR APTT Fibrinogen D-Dimer ABG pH POC ABG pCO2 POC ABG pO2 ABG pO2 ABG HCO3 ABG O2 Saturation ABG Base Excess ABG Hemoglobin ABG Oxyhemoglobin Oxyhemoglobin Sodium Potassium Chloride Carbon Dioxide BUN Creatinine Glucose POC Glucose 153 H 201 H 132 H Lactic Acid Calcium Phosphorus Magnesium AST ALT Alkaline Phosphatase C-Reactive Protein Total Protein Albumin Triglycerides Ur Specific [place] Urine Creatinine Crossmatch 06/24/21 06/25/21 06/25/21 23:24 05:30 09:00 WBC RBC Hgb 8.3 L Hct 27.0 L MCV MCH RDW Plt Count Lymph % (Auto) [place] % (Auto) Lymph # (Auto) [place] # (Auto) Seg Neutrophils % Seg Neuts % (Manual) Lymphocytes % (Manual) Monocytes % (Manual) Seg Neutrophils # Seg Neutrophils # Man Lymphocytes # (Manual) Monocytes # (Manual) PT INR APTT Fibrinogen D-Dimer ABG pH POC ABG pCO2 POC ABG pO2 ABG pO2 ABG HCO3 ABG O2 Saturation ABG Base Excess ABG Hemoglobin ABG Oxyhemoglobin Oxyhemoglobin Sodium Potassium Chloride Carbon Dioxide BUN Creatinine Glucose POC Glucose 170 H 151 H Lactic Acid Calcium Phosphorus Magnesium AST ALT Alkaline Phosphatase C-Reactive Protein Total Protein Albumin Triglycerides Ur Specific [place] Urine Creatinine Crossmatch 06/25/21 06/25/21 06/25/21 11:29 14:24 16:48 WBC RBC Hgb 8.5 L Hct 27.5 L MCV MCH RDW Plt Count Lymph % (Auto) [place] % (Auto) Lymph # (Auto) [place] # (Auto) Seg Neutrophils % Seg Neuts % (Manual) Lymphocytes % (Manual) Monocytes % (Manual) Seg Neutrophils # Seg Neutrophils # Man Lymphocytes # (Manual) Monocytes # (Manual) PT INR APTT Fibrinogen D-Dimer ABG pH POC ABG pCO2 POC ABG pO2 ABG pO2 ABG HCO3 ABG O2 Saturation ABG Base Excess ABG Hemoglobin ABG Oxyhemoglobin Oxyhemoglobin Sodium Potassium Chloride Carbon Dioxide BUN Creatinine Glucose POC Glucose 189 H 224 H Lactic Acid Calcium Phosphorus Magnesium AST ALT Alkaline Phosphatase C-Reactive Protein Total Protein Albumin Triglycerides Ur Specific [place] Urine Creatinine Crossmatch 06/25/21 06/25/21 06/25/21 23:39 Unknown Unknown WBC 16.5 H RBC 2.90 L Hgb 8.0 L Hct 23.8 L MCV MCH RDW 22.8 H Plt Count Lymph % (Auto) [place] % (Auto) Lymph # (Auto) [place] # (Auto) Seg Neutrophils % Seg Neuts % (Manual) Lymphocytes % (Manual) Monocytes % (Manual) Seg Neutrophils # Seg Neutrophils # Man Lymphocytes # (Manual) Monocytes # (Manual) PT INR APTT Fibrinogen D-Dimer ABG pH POC ABG pCO2 POC ABG pO2 ABG pO2 ABG HCO3 ABG O2 Saturation ABG Base Excess ABG Hemoglobin ABG Oxyhemoglobin Oxyhemoglobin Sodium 149 H Potassium Chloride 115.6 H Carbon Dioxide BUN 28 H Creatinine Glucose 157 H POC Glucose 187 H Lactic Acid Calcium 8.0 L Phosphorus Magnesium AST ALT Alkaline Phosphatase C-Reactive Protein Total Protein Albumin Triglycerides Ur Specific [place] Urine Creatinine Crossmatch 06/26/21 06/26/21 06/26/21 05:22 05:29 05:29 WBC 16.2 H RBC 3.03 L Hgb 8.0 L Hct 25.1 L MCV MCH 26 L RDW 23.2 H Plt Count Lymph % (Auto) [place] % (Auto) Lymph # (Auto) [place] # (Auto) Seg Neutrophils % Seg Neuts % (Manual) Lymphocytes % (Manual) Monocytes % (Manual) Seg Neutrophils # Seg Neutrophils # Man Lymphocytes # (Manual) Monocytes # (Manual) PT INR APTT Fibrinogen D-Dimer ABG pH POC ABG pCO2 POC ABG pO2 ABG pO2 ABG HCO3 ABG O2 Saturation ABG Base Excess ABG Hemoglobin ABG Oxyhemoglobin Oxyhemoglobin Sodium 150 H Potassium Chloride 114.8 H Carbon Dioxide BUN 29 H Creatinine Glucose 229 H POC Glucose 211 H Lactic Acid Calcium 8.2 L Phosphorus Magnesium AST ALT Alkaline Phosphatase C-Reactive Protein Total Protein Albumin Triglycerides Ur Specific [place] Urine Creatinine Crossmatch 06/26/21 06/26/21 06/26/21 11:05 15:59 22:00 WBC RBC Hgb Hct MCV MCH RDW Plt Count Lymph % (Auto) [place] % (Auto) Lymph # (Auto) [place] # (Auto) Seg Neutrophils % Seg Neuts % (Manual) Lymphocytes % (Manual) Monocytes % (Manual) Seg Neutrophils # Seg Neutrophils # Man Lymphocytes # (Manual) Monocytes # (Manual) PT INR APTT Fibrinogen D-Dimer ABG pH POC ABG pCO2 POC ABG pO2 ABG pO2 ABG HCO3 ABG O2 Saturation ABG Base Excess ABG Hemoglobin ABG Oxyhemoglobin Oxyhemoglobin Sodium Potassium Chloride Carbon Dioxide BUN Creatinine Glucose POC Glucose 213 H 222 H 161 H Lactic Acid Calcium Phosphorus Magnesium AST ALT Alkaline Phosphatase C-Reactive Protein Total Protein Albumin Triglycerides Ur Specific [place] Urine Creatinine Crossmatch 06/26/21 06/27/21 06/27/21 23:24 04:15 04:15 WBC 14.3 H RBC 2.96 L Hgb 8.1 L Hct 24.6 L MCV MCH 27 L RDW 23.0 H Plt Count Lymph % (Auto) [place] % (Auto) Lymph # (Auto) [place] # (Auto) Seg Neutrophils % Seg Neuts % (Manual) Lymphocytes % (Manual) Monocytes % (Manual) Seg Neutrophils # Seg Neutrophils # Man Lymphocytes # (Manual) Monocytes # (Manual) PT INR APTT Fibrinogen D-Dimer ABG pH POC ABG pCO2 POC ABG pO2 ABG pO2 ABG HCO3 ABG O2 Saturation ABG Base Excess ABG Hemoglobin ABG Oxyhemoglobin Oxyhemoglobin Sodium 150 H Potassium Chloride 113.8 H Carbon Dioxide BUN 26 H Creatinine Glucose 246 H POC Glucose 164 H Lactic Acid Calcium 7.8 L Phosphorus Magnesium AST ALT Alkaline Phosphatase C-Reactive Protein Total Protein Albumin Triglycerides Ur Specific Martin Urine Creatinine Crossmatch 06/27/21 06/27/21 06/27/21 05:44 11:07 16:06 WBC RBC Hgb Hct MCV MCH RDW Plt Count Lymph % (Auto) [place] % (Auto) Lymph # (Auto) [place] # (Auto) Seg Neutrophils % Seg Neuts % (Manual) Lymphocytes % (Manual) Monocytes % (Manual) Seg Neutrophils # Seg Neutrophils # Man Lymphocytes # (Manual) Monocytes # (Manual) PT INR APTT Fibrinogen D-Dimer ABG pH POC ABG pCO2 POC ABG pO2 ABG pO2 ABG HCO3 ABG O2 Saturation ABG Base Excess ABG Hemoglobin ABG Oxyhemoglobin Oxyhemoglobin Sodium Potassium Chloride Carbon Dioxide BUN Creatinine Glucose POC Glucose 226 H 204 H 224 H Lactic Acid Calcium Phosphorus Magnesium AST ALT Alkaline Phosphatase C-Reactive Protein Total Protein Albumin Triglycerides Ur Specific [place] Urine Creatinine Crossmatch 06/27/21 06/28/21 06/28/21 23:49 04:00 04:00 WBC 15.4 H RBC 3.05 L Hgb 8.2 L Hct 25.0 L MCV MCH 27 L RDW 22.6 H Plt Count Lymph % (Auto) [place] % (Auto) Lymph # (Auto) [place] # (Auto) Seg Neutrophils % Seg Neuts % (Manual) Lymphocytes % (Manual) Monocytes % (Manual) Seg Neutrophils # Seg Neutrophils # Man Lymphocytes # (Manual) Monocytes # (Manual) PT INR APTT Fibrinogen D-Dimer ABG pH POC ABG pCO2 POC ABG pO2 ABG pO2 ABG HCO3 ABG O2 Saturation ABG Base Excess ABG Hemoglobin ABG Oxyhemoglobin Oxyhemoglobin Sodium 152 H Potassium 3.0 L Chloride 114.9 H Carbon Dioxide BUN 24 H Creatinine Glucose 158 H POC Glucose 195 H Lactic Acid Calcium 8.1 L Phosphorus Magnesium AST ALT Alkaline Phosphatase C-Reactive Protein Total Protein Albumin Triglycerides Ur Specific [place] Urine Creatinine Crossmatch 06/28/21 06/28/21 06/28/21 05:05 11:47 17:21 WBC RBC Hgb Hct MCV MCH RDW Plt Count Lymph % (Auto) [place] % (Auto) Lymph # (Auto) [place] # (Auto) Seg Neutrophils % Seg Neuts % (Manual) Lymphocytes % (Manual) Monocytes % (Manual) Seg Neutrophils # Seg Neutrophils # Man Lymphocytes # (Manual) Monocytes # (Manual) PT INR APTT Fibrinogen D-Dimer ABG pH POC ABG pCO2 POC ABG pO2 ABG pO2 ABG HCO3 ABG O2 Saturation ABG Base Excess ABG Hemoglobin ABG Oxyhemoglobin Oxyhemoglobin Sodium Potassium Chloride Carbon Dioxide BUN Creatinine Glucose POC Glucose 121 H 164 H 166 H Lactic Acid Calcium Phosphorus Magnesium AST ALT Alkaline Phosphatase C-Reactive Protein Total Protein Albumin Triglycerides Ur Specific [place] Urine Creatinine Crossmatch 06/28/21 06/28/21 06/29/21 18:14 21:54 00:55 WBC RBC Hgb Hct MCV MCH RDW Plt Count Lymph % (Auto) [place] % (Auto) Lymph # (Auto) [place] # (Auto) Seg Neutrophils % Seg Neuts % (Manual) Lymphocytes % (Manual) Monocytes % (Manual) Seg Neutrophils # Seg Neutrophils # Man Lymphocytes # (Manual) Monocytes # (Manual) PT INR APTT Fibrinogen D-Dimer ABG pH POC ABG pCO2 POC ABG pO2 ABG pO2 ABG HCO3 ABG O2 Saturation ABG Base Excess ABG Hemoglobin ABG Oxyhemoglobin Oxyhemoglobin Sodium Potassium Chloride Carbon Dioxide BUN Creatinine Glucose POC Glucose 150 H 148 H 176 H Lactic Acid Calcium Phosphorus Magnesium AST ALT Alkaline Phosphatase C-Reactive Protein Total Protein Albumin Triglycerides Ur Specific [place] Urine Creatinine Crossmatch 06/29/21 06/29/21 06/29/21 04:00 04:00 05:20 WBC 15.3 H RBC 3.04 L Hgb 8.0 L Hct 25.0 L MCV MCH 26 L RDW 22.3 H Plt Count Lymph % (Auto) [place] % (Auto) Lymph # (Auto) [place] # (Auto) Seg Neutrophils % Seg Neuts % (Manual) Lymphocytes % (Manual) Monocytes % (Manual) Seg Neutrophils # Seg Neutrophils # Man Lymphocytes # (Manual) Monocytes # (Manual) PT INR APTT Fibrinogen D-Dimer ABG pH POC ABG pCO2 POC ABG pO2 ABG pO2 ABG HCO3 ABG O2 Saturation ABG Base Excess ABG Hemoglobin ABG Oxyhemoglobin Oxyhemoglobin Sodium Potassium 3.1 L Chloride 108.7 H Carbon Dioxide BUN 20 H Creatinine Glucose 194 H POC Glucose 185 H Lactic Acid Calcium 8.0 L Phosphorus Magnesium AST ALT Alkaline Phosphatase C-Reactive Protein Total Protein Albumin Triglycerides Ur Specific [place] Urine Creatinine Crossmatch 06/29/21 06/29/21 06/30/21 12:18 17:20 00:49 WBC RBC Hgb Hct MCV MCH RDW Plt Count Lymph % (Auto) [place] % (Auto) Lymph # (Auto) [place] # (Auto) Seg Neutrophils % Seg Neuts % (Manual) Lymphocytes % (Manual) Monocytes % (Manual) Seg Neutrophils # Seg Neutrophils # Man Lymphocytes # (Manual) Monocytes # (Manual) PT INR APTT Fibrinogen D-Dimer ABG pH POC ABG pCO2 POC ABG pO2 ABG pO2 ABG HCO3 ABG O2 Saturation ABG Base Excess ABG Hemoglobin ABG Oxyhemoglobin Oxyhemoglobin Sodium Potassium Chloride Carbon Dioxide BUN Creatinine Glucose POC Glucose 135 H 185 H 156 H Lactic Acid Calcium Phosphorus Magnesium AST ALT Alkaline Phosphatase C-Reactive Protein Total Protein Albumin Triglycerides Ur Specific [place] Urine Creatinine Crossmatch 06/30/21 06/30/21 06/30/21 04:25 04:25 08:14 WBC 13.0 H RBC 3.19 L Hgb 8.2 L Hct 26.2 L MCV MCH 26 L RDW 22.3 H Plt Count Lymph % (Auto) [place] % (Auto) Lymph # (Auto) [place] # (Auto) Seg Neutrophils % Seg Neuts % (Manual) 81.0 H Lymphocytes % (Manual) 10.0 L Monocytes % (Manual) 8.0 H Seg Neutrophils # Seg Neutrophils # Man 10.5 H Lymphocytes # (Manual) Monocytes # (Manual) 1.0 H PT INR APTT Fibrinogen D-Dimer ABG pH POC ABG pCO2 POC ABG pO2 ABG pO2 ABG HCO3 ABG O2 Saturation ABG Base Excess ABG Hemoglobin ABG Oxyhemoglobin Oxyhemoglobin Sodium Potassium 3.0 L Chloride Carbon Dioxide BUN 20 H Creatinine Glucose 104 H POC Glucose 119 H Lactic Acid Calcium 8.3 L Phosphorus Magnesium AST ALT Alkaline Phosphatase C-Reactive Protein Total Protein Albumin Triglycerides Ur Specific [place] Urine Creatinine Crossmatch 06/30/21 06/30/21 06/30/21 11:36 16:24 22:44 WBC RBC Hgb Hct MCV MCH RDW Plt Count Lymph % (Auto) [place] % (Auto) Lymph # (Auto) [place] # (Auto) Seg Neutrophils % Seg Neuts % (Manual) Lymphocytes % (Manual) Monocytes % (Manual) Seg Neutrophils # Seg Neutrophils # Man Lymphocytes # (Manual) Monocytes # (Manual) PT INR APTT Fibrinogen D-Dimer ABG pH POC ABG pCO2 POC ABG pO2 ABG pO2 ABG HCO3 ABG O2 Saturation ABG Base Excess ABG Hemoglobin ABG Oxyhemoglobin Oxyhemoglobin Sodium Potassium Chloride Carbon Dioxide BUN Creatinine Glucose POC Glucose 154 H 208 H 174 H Lactic Acid Calcium Phosphorus Magnesium AST ALT Alkaline Phosphatase C-Reactive Protein Total Protein Albumin Triglycerides Ur Specific [place] Urine Creatinine Crossmatch 07/01/21 07/01/21 07/01/21 05:29 05:29 05:54 WBC 11.9 H RBC 3.00 L Hgb 8.1 L Hct 24.4 L MCV MCH 27 L RDW 21.7 H Plt Count Lymph % (Auto) [place] % (Auto) Lymph # (Auto) [place] # (Auto) Seg Neutrophils % Seg Neuts % (Manual) Lymphocytes % (Manual) Monocytes % (Manual) Seg Neutrophils # Seg Neutrophils # Man Lymphocytes # (Manual) Monocytes # (Manual) PT INR APTT Fibrinogen D-Dimer ABG pH POC ABG pCO2 POC ABG pO2 ABG pO2 ABG HCO3 ABG O2 Saturation ABG Base Excess ABG Hemoglobin ABG Oxyhemoglobin Oxyhemoglobin Sodium Potassium Chloride Carbon Dioxide BUN Creatinine Glucose 177 H POC Glucose 170 H Lactic Acid Calcium Phosphorus Magnesium AST ALT Alkaline Phosphatase C-Reactive Protein Total Protein Albumin Triglycerides Ur Specific [place] Urine Creatinine Crossmatch 07/01/21 07/02/21 10:54 05:05 WBC RBC Hgb Hct MCV MCH RDW Plt Count Lymph % (Auto) [place] % (Auto) Lymph # (Auto) [place] # (Auto) Seg Neutrophils % Seg Neuts % (Manual) Lymphocytes % (Manual) Monocytes % (Manual) Seg Neutrophils # Seg Neutrophils # Man Lymphocytes # (Manual) Monocytes # (Manual) PT INR APTT Fibrinogen D-Dimer ABG pH POC ABG pCO2 POC ABG pO2 ABG pO2 ABG HCO3 ABG O2 Saturation ABG Base Excess ABG Hemoglobin ABG Oxyhemoglobin Oxyhemoglobin Sodium Potassium Chloride Carbon Dioxide BUN Creatinine Glucose POC Glucose 184 H 182 H Lactic Acid Calcium Phosphorus Magnesium AST ALT Alkaline Phosphatase C-Reactive Protein Total Protein Albumin Triglycerides Ur Specific [place] Urine Creatinine Crossmatch
[2021-07-02 10:29] LABS: ABG Base Excess 3.5 mmol/L (-2.0-3.0); ABG HCO3 27.1 mmol/L (20.0-26.0); ABG Methemoglobin 0.5 % (0.0-1.5); ABG Oxygen Saturation 97.7 % (95.0-99.0); ABG PCO2 36.5 mm Hg; ABG PH 7.488 pH Units (7.350-7.450); ABG PO2 97.2 mm Hg (80.0-90.0)
--- NOTE | 2021-07-02 10:32 | Progress Note ---
Assessment and Plan Assessment and plan: 76-year-old female with past medical history of diabetes mellitus type 2, hypertension and gout who was admitted to the hospital on 06/11/2021 with swelling of the submandibular region/tongue and shortness of breath. 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 Patient was also noted to have severe coagulopathy due to Coumadin and probably component of hemorrhagic shock with blood loss anemia. S/p vasopressor support with Levophed and Fabian- Synephrine Patient had hospital course complicated by cardiac arrest on 06/14 with ROSC. Patient is status post trach and PEG tube placement on 06/19/2021. Acute hypoxic respiratory failure. -S/p emergent cricothyroidectomy with surgery with 8.00 ETT -s/p trach 06/19 with surgery (#[address]) -T-piece trials started 06/26 -ST: Unable to tolerate Passy-Stowe valve on 06/28 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 from dental caries. -CT neck with contrast showed a significant right floor of mild swelling with extension into the submandibular and submental spaces, significant thickening and inflammation involving the right pharyngeal wall, with the parapharyngeal and retropharyngeal spaces at the level of the thyroid cartilage, epiglottis significantly swollen and so are the aryepiglottic folds resulting in significant airway narrowing at this level, no lymphadenopathy, symmetric submandibular and parathyroid glands, S few scattered caries but no periapical lucencies, nonspecific calcification along the right lateral oropharynx, no definite stone seen within the territory of the submandibular gland ducts, no suspicious rashes lesion -Infectious disease and general surgery consulted, appreciate recommendations Right-sided pneumothorax. -s/p Right chest tube removed 06/29 -06/13 bronchoscopy showed possible blood clot in left lung which may be acting as mucous plug however it was left in place due to possible bleeding inside lung if removed. -06/16 CT chest shows moderate right pneumothorax with collapse of right upper lobe, right thoracostomy tube terminates at the collapsed right upper lobe, bilateral bronchus opacities compatible with infectious/inflammatory etiology, bilateral small pleural effusion, extensive subcutaneous air, small fluid collection in the anterior mediastinum is nonspecific Cardiac arrest. Patient s/p cardiac arrest with ROSC on 06/14. -S/p vasopressor support with Levophed and Fabian-Synephrine -06/13 Echocardiogram EF 65-70% Diabetes mellitus type 2 Coagulopathy Acute blood loss anemia Hospital course to date: 06/12: Patient received additional 2 units FFP and 1 unit PRBC and vitamin K today. Overnight critical care placed a femoral CVL. Patient sedated on fentanyl, propofol and Versed. Currently on Fabian-Synephrine and Levophed for blood pressure maintenance. Remains amatory support. Infectious disease consulted. Started on sliding scale insulin and recultured. COVID-19 PCR pending. Surgery at bedside to place chest tube. 06/13: Patient was taken back to the OR today for exchange cricothyroid to possible tracheostomy. Patient returned with ETT. Chest tube was changed to larger size in the OR. Patient was hypotensive, tachycardic, hypoxic in the OR and received hespan, albumin and an A-line. Upon arrival patient was increased to max dose Levophed for hypotension which has resolved. Titrating vasopressors as tolerated. Remains on sedation with 3 agents. Apparently patient was not ventilating her left lung Intra-Op. Noted to have subcu hematoma and trauma to postpharyngeal area. Questionable decrease cardiac wall motion noted in OR-> will order echocardiogram to further investigate. Patient received additional PRBC today. DIC panel resulted as normal. Patient BUN/creatinine did increase as well as noted to have lactic acidosis. May need IV bolus in addition to pressor use. Likely bronc with Pulmicort today as repeat CXR showed right possible pneumo hydrothorax 06/14: Antibiotics changed to Zosyn per ID, surgical packing removed from neck and makeshift Bloom[place] drain placed by surgery and old chronic thyroidectomy site. CXR was completed and RN heard gurgling and blood was noted on dressing. ST elevation noted on bedside monitor and patient was hypoxic. FiO2 increased to 100%. However shortly after patient lost her pulse and ACLS was initiated. Patient received 3 rounds of epinephrine and ROSC was achieved. Stat portable CXR showed resolution of lower lobe collapse on the left and stable right-sided chest tube with hemothorax. CCM updated family. Patient H/H noted to be 7.2/23.2 and did RN to transfuse prepared PRBC which [facility] blood bank. Bedside echo completed. 06/15: Off sedation, intermittently follows commands, remains on the prednisone. Surgery will reassess airway on Thursday to see if any further support is required. Urine studies indicate prerenal, given IV bolus and started on Clinimix today. 06/16: Patient restarted on fentanyl drip due to hypertension. Given more LR due to CR improvement post LR yesterday. Patient started on Lantus subcu after given one-time dose of Lantus. PICC placed today. Patient had a CT chest today which showed no mediasinusitis but extensive subcutaneous air. 06/17: General Surgery recommended transferring patient to a ENT specialized facility. Placed a call to [facility] transferring landing, spoke with the almond sorter, Dr. Duckworth, who stated that a transfer is possible as long their ENT team accept the patient. Awaiting on a final response. Continue current supportive measures. Basal insulin adjusted for hyperglycemia. 06/18: JEREMIAS overnight. Hypertensive this am, PRN Hydralazine for SBP greater than 160. Remains hyperglycemic, patient is on IV steroids and TPN, basal insulin adjusted. Plan for possible transfer to [place] once an ICU bed is available. 06/19: Low SPO2 and hypotension overnight required Levophed for a short time. Overnight CXR noted with no significant changed. Patient is stable this am and off pressors. Plan for possible Trach and PEG today by General Surgery. 06/20: s/p Trach and PEG. Some bleeding overnight s/p X1 dose of Vitamin K. The bleeding resolved this am, H&H remains stable. Attempted a SAT this am, patient went into SVT, HR in the 160-170 which resolved once sedations were resumed. Plan is to continue to sedation for now, attempt to wean off propofol for a RASS goal of 0 to -2. D/C CCM plan is to wean off sedation as tolerated for PST for possible extubation. Okay to use PEGT per Gen. Surgery. Nutrition consulted for TF management, TF to start tonight once current TPN bag is completed. BG remains elevated, continue current SSI and basal for now, will start tapering IV steroids tomorrow. FWF added for hyponatremia. Wean off pressors as tolerated for MAP above 65. Possible transfer to [place] for ENT eval. 06/21: Overnight events and CXR noted. Worsen subcutaneous emphysema and Rt. Pneumo. CT remains in place and intact to cont. wall suction. Patient remains hemodynamically stable, still on low vent setting. will continue to monitor for now. Patient is also tolerating enteral nutrition via PEGT, TPN D/benjamín. H&H is also trending down, no s/s of any active bleeding. Will continue to trend H&H, transfuse if hgb is less than 7. FWF increased for hypernatremia. Still waiting on possible transfer to [place]. 06/22: JEREMIAS overnight. Subcutaneous emphysema is unchanged. CXR with mild improvement. Patient remains hemodynamically stable. Hydralazine added Q8hr for HTN. FWF increased for hypernatremia. Awaiting transfer to [place] for ENT eval. 06/23: Over 70cc from CT overnight, subcutaneous emphysema with mild improvement. Patient is also tolerating PST this am. Repeat CXR in the am. Patient is still hypertensive, will added norvasc for better control. Continue FWF for hypernatre sergio and electrolytes replacement as needed, repeat labs in the am. Darin in wbcs this am, patient remains afebrile and on IV Abx, most likely due to IV steroids continue to monitor. Continue to taper IV steroids. Hyperglycemia is also improving, continue current SSI and basal for now. 06/24: Patient is anemic today and transfused 1 unit PRBC, hypokalemia and hypophosphatemia repleted, will continue every 6 H/H for now to monitor for bleeding, steroid taper continues, still awaiting transfer to [place], PT/OT consulted, CCM to talk to case management regarding LTAC transfer. 06/25: Patient responded appropriately to yesterday, placed on pressure support trial today. Per CCM hopefully T-piece in the next 24 to 48 hours and will continue decrease steroids further on . Lujan catheter removed today. 06/26: Patient started T-piece trials, H/H remained stable. Surgery plans to remove chest tube once weaned off ventilator. Increasing her water flush given hypernatremia. 06/27: Chest tube placed to waterseal, T-piece trial trials ongoing. Remains on Zosyn and steroids being tapered. Increasing free water flush, insulin and added 3 times daily insulin. 06/28: Hypernatremia persists, started on D5W for 1 L, replace potassium. Chest tube remains to waterseal. 06/29: Chest tube removed by surgery today, hyponatremia better and dextrose discontinued, hypokalemia noted which was repleted. Speech did see but patient had decreased voice quality and increased wob so aborted 06/30: Hypokalemia noted on labs will be repleted, leukocytosis continues to improve. Continues on T-piece trials and is following commands. 07/01: Transfer from ICU on 06/30. Patient was stable with a trach and T-piece on 5 L. Tolerating tube feeds. 07/02: Patient remains on T-piece with trach in place. On 5 L of O2. She is alert and responds appropriately but not well due to trach tube. Tolerating tube feeds. Appears comfortable. No complaints. No new events reported. Case management reports patient with plans for LTAC placement. History Interval history: No new issues overnight. Hospitalist Physical - Constitutional Vitals: Temp Pulse Resp BP Pulse Ox 100.4 F H 104 H 18 139/71 97 07/02/21 07:25 07/02/21 07:25 07/02/21 07:25 07/02/21 07:25 07/02/21 09:12 General appearance: Present: no acute distress, obese (Morbidly obese), other (On T-piece with trach in place.) - EENT Eyes: Present: PERRL, EOM intact ENT: hearing intact, clear oral mucosa, dentition normal - Neck Neck: Present: supple, normal ROM - Respiratory Respiratory effort: normal Respiratory: bilateral: CTA - Cardiovascular Rhythm: regular Heart Sounds: Present: S1 & S2. Absent: gallop, rub - Extremities Extremities: no ischemia, No edema, Full ROM - Abdominal General gastrointestinal: soft, non-tender, non-distended, normal bowel sounds - Integumentary Integumentary: Present: clear, warm, dry - Neurologic Neurologic: CNII-XII intact, moves all extremities HEART Score - HEART Score Troponin: Troponin T < 0.010 ng/mL (0.00-0.029) 06/11/21 23:21 Results - Labs CBC & Chem 7: 07/01/21 05:29 07/01/21 05:29 Labs: Laboratory Last Values WBC 11.9 K/mm3 (4.5-11.0) H 07/01/21 05:29 RBC 3.00 M/mm3 (3.65-5.03) L 07/01/21 05:29 Hgb 8.1 gm/dl (10.1-14.3) L 07/01/21 05:29 Hct 24.4 % (30.3-42.9) L 07/01/21 05:29 MCV 82 fl (79-97) 07/01/21 05:29 MCH 27 pg (28-32) L 07/01/21 05:29 MCHC 33 % (30-34) 07/01/21 05:29 RDW 21.7 % (13.2-15.2) H 07/01/21 05:29 Plt Count 165 K/mm3 (140-440) 07/01/21 05:29 Lymph % (Auto) 3.5 % (13.4-35.0) L 06/21/21 04:42 Martin % (Auto) 11.7 % (0.0-7.3) H 06/21/21 04:42 Eos % (Auto) 0.0 % (0.0-4.3) 06/21/21 04:42 Baso % (Auto) 0.1 % (0.0-1.8) 06/21/21 04:42 Lymph # (Auto) 0.5 K/mm3 (1.2-5.4) L 06/21/21 04:42 Martin # (Auto) 1.8 K/mm3 (0.0-0.8) H 06/21/21 04:42 Eos # (Auto) 0.0 K/mm3 (0.0-0.4) 06/21/21 04:42 Baso # (Auto) 0.0 K/mm3 (0.0-0.1) 06/21/21 04:42 Add Manual Diff Complete 06/30/21 04:25 Total Counted 100 06/30/21 04:25 Seg Neutrophils % 84.7 % (40.0-70.0) H 06/21/21 04:42 Seg Neuts % (Manual) 81.0 % (40.0-70.0) H 06/30/21 04:25 Band Neutrophils % 0 % 06/30/21 04:25 Lymphocytes % (Manual) 10.0 % (13.4-35.0) L 06/30/21 04:25 Reactive Lymphs % (Man) 0 % 06/30/21 04:25 Monocytes % (Manual) 8.0 % (0.0-7.3) H 06/30/21 04:25 Eosinophils % (Manual) 1.0 % (0.0-4.3) 06/30/21 04:25 Basophils % (Manual) 0 % (0.0-1.8) 06/30/21 04:25 Metamyelocytes % 0 % 06/30/21 04:25 Myelocytes % 0 % 06/30/21 04:25 Promyelocytes % 0 % 06/30/21 04:25 Blast Cells % 0 % 06/30/21 04:25 Nucleated RBC % Not Reportable 06/30/21 04:25 Seg Neutrophils # 12.8 K/mm3 (1.8-7.7) H 06/21/21 04:42 Seg Neutrophils # Man 10.5 K/mm3 (1.8-7.7) H 06/30/21 04:25 Band Neutrophils # 0.0 K/mm3 06/30/21 04:25 Lymphocytes # (Manual) 1.3 K/mm3 (1.2-5.4) 06/30/21 04:25 Abs React Lymphs (Man) 0.0 K/mm3 06/30/21 04:25 Monocytes # (Manual) 1.0 K/mm3 (0.0-0.8) H 06/30/21 04:25 Eosinophils # (Manual) 0.1 K/mm3 (0.0-0.4) 06/30/21 04:25 Basophils # (Manual) 0.0 K/mm3 (0.0-0.1) 06/30/21 04:25 Metamyelocytes # 0.0 K/mm3 06/30/21 04:25 Myelocytes # 0.0 K/mm3 06/30/21 04:25 Promyelocytes # 0.0 K/mm3 06/30/21 04:25 Blast Cells # 0.0 K/mm3 06/30/21 04:25 WBC Morphology Not Reportable 06/30/21 04:25 Hypersegmented Neuts Not Reportable 06/30/21 04:25 Hyposegmented Neuts Not Reportable 06/30/21 04:25 Hypogranular Neuts Not Reportable 06/30/21 04:25 Smudge Cells Not Reportable 06/30/21 04:25 Toxic Granulation Not Reportable 06/30/21 04:25 Toxic Vacuolation Not Reportable 06/30/21 04:25 Dohle Bodies Not Reportable 06/30/21 04:25 Pelger-Huet Anomaly Not Reportable 06/30/21 04:25 Dennis Rods Not Reportable 06/30/21 04:25 Platelet Estimate Consistent w auto 06/30/21 04:25 Clumped Platelets Not Reportable 06/30/21 04:25 Plt Clumps, EDTA Not Reportable 06/30/21 04:25 Large Platelets Few 06/30/21 04:25 Giant Platelets Not Reportable 06/30/21 04:25 Platelet Satelliting Not Reportable 06/30/21 04:25 Plt Morphology Comment Not Reportable 06/30/21 04:25 RBC Morphology Not Reportable 06/30/21 04:25 Dimorphic RBCs Not Reportable 06/30/21 04:25 Polychromasia Rare 06/30/21 04:25 Hypochromasia 1+ 06/30/21 04:25 Poikilocytosis Not Reportable 06/30/21 04:25 Anisocytosis 1+ 06/30/21 04:25 Microcytosis Not Reportable 06/30/21 04:25 Macrocytosis Not Reportable 06/30/21 04:25 Spherocytes Not Reportable 06/30/21 04:25 Pappenheimer Bodies Not Reportable 06/30/21 04:25 Sickle Cells Not Reportable 06/30/21 04:25 Target Cells Rare 06/30/21 04:25 Tear Drop Cells Few 06/30/21 04:25 Ovalocytes Not Reportable 06/30/21 04:25 Stomatocytes Few 06/12/21 01:45 Helmet Cells Not Reportable 06/30/21 04:25 [place] Bodies Not Reportable 06/30/21 04:25 [place] Rings Not Reportable 06/30/21 04:25 Nelsy Cells Not Reportable 06/30/21 04:25 Bite Cells Not Reportable 06/30/21 04:25 Crenated Cell Not Reportable 06/30/21 04:25 Elliptocytes Not Reportable 06/30/21 04:25 Acanthocytes (Spur) Not Reportable 06/30/21 04:25 Rouleaux Not Reportable 06/30/21 04:25 Hemoglobin C Crystals Not Reportable 06/30/21 04:25 Schistocytes Not Reportable 06/30/21 04:25 Malaria parasites Not Reportable 06/30/21 04:25 Edin Bodies Not Reportable 06/30/21 04:25 Hem Pathologist Commnt No 06/30/21 04:25 PT 18.3 Sec. (12.2-14.9) H 06/20/21 04:33 INR 1.37 (0.87-1.13) H 06/20/21 04:33 APTT 26.4 Sec. (24.2-36.6) 06/13/21 Unknown Fibrinogen 546 mg/dl (211-480) H 06/13/21 Unknown D-Dimer 1244.63 ng/mlDDU (0-234) H 06/13/21 Unknown ABG pH 7.426 pH Units (7.350-7.450) 06/21/21 04:20 POC ABG pCO2 25.6 mmHg (32.0-48.0) L 06/13/21 04:31 ABG pCO2 35.1 mm Hg 06/21/21 04:20 POC ABG pO2 138.8 mmHg (83-108) H 06/13/21 04:31 ABG pO2 98.5 mm Hg (80.0-90.0) H 06/21/21 04:20 POC ABG HCO3 21.4 06/13/21 04:31 ABG HCO3 22.6 mmol/L (20.0-26.0) 06/21/21 04:20 ABG O2 Saturation 97.7 % (95.0-99.0) 06/21/21 04:20 ABG O2 Content 9.9 (0.0-44) 06/21/21 04:20 POC ABG Base Excess -0.7 06/13/21 04:31 ABG Base Excess -1.6 mmol/L (-2.0-3.0) 06/21/21 04:20 ABG Hemoglobin 7.2 gm/dl (12.0-16.0) L 06/21/21 04:20 ABG Oxyhemoglobin 98.1 (94-98) H 06/13/21 04:31 ABG Carboxyhemoglobin 1.7 % (0.0-5.0) 06/21/21 04:20 ABG Methemoglobin 0.5 % (0.0-1.5) 06/21/21 04:20 Oxyhemoglobin 95.5 % (95.0-99.0) 06/21/21 04:20 Carboxyhemoglobin 0.8 (0.5-1.5) 06/13/21 04:31 FiO2 30 % 06/21/21 04:20 FiO2 % 40.0 06/13/21 04:31 Sodium 143 mmol/L (137-145) 07/01/21 05:29 Potassium 3.7 mmol/L (3.6-5.0) 07/01/21 05:29 Chloride 106.3 mmol/L (98-107) 07/01/21 05:29 Carbon Dioxide 27 mmol/L (22-30) 07/01/21 05:29 Anion Gap 13 mmol/L 07/01/21 05:29 BUN 16 mg/dL (7-17) 07/01/21 05:29 Creatinine 0.9 mg/dL (0.6-1.2) 07/01/21 05:29 Estimated GFR > 60 ml/min 07/01/21 05:29 BUN/Creatinine Ratio 18 % 07/01/21 05:29 Glucose 177 mg/dL (65-100) H 07/01/21 05:29 POC Glucose 182 mg/dL (70-105) H 07/02/21 05:05 Lactic Acid 5.30 mmol/L (0.7-2.0) H* 06/13/21 15:45 Calcium 8.5 mg/dL (8.4-10.2) 07/01/21 05:29 Phosphorus 2.70 mg/dL (2.5-4.5) 07/01/21 05:29 Magnesium 2.10 mg/dL (1.7-2.3) 07/01/21 05:29 Total Bilirubin 0.40 mg/dL (0.1-1.2) 06/15/21 03:56 AST 64 units/L (5-40) H 06/15/21 03:56 ALT 106 units/L (7-56) H 06/15/21 03:56 Alkaline Phosphatase 55 units/L (35-129) 06/15/21 03:56 Troponin T < 0.010 ng/mL (0.00-0.029) 06/11/21 23:21 C-Reactive Protein 3.30 mg/dL (0.00-1.30) H 06/16/21 04:32 Total Protein 5.1 g/dL (6.3-8.2) L 06/15/21 03:56 Albumin 2.9 g/dL (3.9-5) L 06/15/21 03:56 Albumin/Globulin Ratio 1.3 % 06/15/21 03:56 Triglycerides 254 mg/dL (2-149) H 06/21/21 04:42 Urine Color Yellow (Yellow) 06/12/21 17:00 Urine Turbidity Clear (Clear) 06/12/21 17:00 Urine pH 5.0 (5.0-7.0) 06/12/21 17:00 Ur Specific [place] 1.035 (1.003-1.030) H 06/12/21 17:00 Urine Protein 30 mg/dl mg/dL (Negative) 06/12/21 17:00 Urine Glucose (UA) 50 mg/dL (Negative) 06/12/21 17:00 Urine Ketones Tr mg/dL (Negative) 06/12/21 17:00 Urine Blood Neg (Negative) 06/12/21 17:00 Urine Nitrite Neg (Negative) 06/12/21 17:00 Urine Bilirubin Neg (Negative) 06/12/21 17:00 Urine Urobilinogen < 2.0 mg/dL (<2.0) 06/12/21 17:00 Ur Leukocyte Esterase Neg (Negative) 06/12/21 17:00 Urine WBC (Auto) < 1.0 /HPF (0.0-6.0) 06/12/21 17:00 Urine RBC (Auto) < 1.0 /HPF (0.0-6.0) 06/12/21 17:00 Urine Creatinine 81.1 mg/dL (0.1-20.0) H 06/15/21 10:40 Urine Sodium 42 mmol/L 06/15/21 10:40 Coronavirus (PCR) Negative (Negative) 06/12/21 09:50 Blood Type O POSITIVE 06/24/21 06:40 Antibody Screen Negative 06/24/21 06:40 Crossmatch See Detail 06/24/21 06:40 Lujan/IV: Voiding Method Indwelling Catheter Active Medications - Current Medications Current Medications: Generic Name Dose Route Start Last Admin Trade Name Freq PRN Reason Stop Dose Admin Acetaminophen 650 mg 07/02/21 09:00 07/02/21 09:03 Acetaminophen 325 Mg/10.15 Ml Oral Liqd Unit Dose FEEDTUBE 650 mg Q6H PRN Administration Pain, Mild (1-3) Amlodipine Besylate 5 mg 06/23/21 10:00 07/02/21 09:03 Amlodipine 5 Mg Tab PO 5 mg QDAY JOLENE Administration Lipase/Protease/Amylase 1 each 06/19/21 19:20 Lipase 10,500/Protease 25,000/Amylase 43,750 (Units) Dr Melgar FEEDTUBE PRN PRN For Clogged Feeding Tube Atorvastatin Calcium 20 mg 06/22/21 22:00 07/01/21 21:22 Atorvastatin 20 Mg Tab PO 20 mg QHS JOLENE Administration Docusate Sodium 100 mg 06/20/21 10:00 07/02/21 09:04 Docusate Sodium 100 Mg/10 Ml Oral Liqd PO Not Given BID JOLENE Enoxaparin Sodium 40 mg 06/30/21 22:00 07/01/21 21:21 Enoxaparin 40 Mg/0.4 Ml Inj SUB-Q 40 mg QDAY@2200 JOLENE Administration Protocol Famotidine 20 mg 06/24/21 22:00 07/02/21 09:03 Famotidine 20 Mg Tab FEEDTUBE 20 mg BID JOLENE Administration Hydralazine HCl 100 mg 06/22/21 19:00 07/02/21 05:23 Hydralazine 100 Mg Tab FEEDTUBE 100 mg Q8HR JOLENE Administration Piperacillin Sod/Tazobactam Sod 4.5 gm in 100 mls @ 200 mls/hr 06/25/21 12:00 07/02/21 05:23 Zosyn/Ns 4.5gm/100ml IV 100 mls/hr Q6HR JOLENE Administration Protocol Insulin Glargine 25 units 06/30/21 22:00 07/01/21 21:21 Insulin Glargine 100 Units/Ml SUB-Q 25 units QHS JOLENE Administration Insulin Human Lispro 0 unit 06/12/21 12:00 07/02/21 05:50 Insulin Lispro 100 Unit/Ml SUB-Q 3 unit Q6HR JOLENE Administration Protocol Labetalol HCl 10 mg 06/21/21 18:00 06/27/21 00:53 Labetalol 20 Mg/4 Ml Inj IV 10 mg Q4HR PRN Administration Hypertension Metoclopramide HCl 10 mg 06/11/21 20:42 Metoclopramide 10 Mg/2 Ml Inj IV Q6H PRN Nausea And Vomiting Ondansetron HCl 4 mg 06/11/21 20:42 Ondansetron 4 Mg/2 Ml Inj IV Q3H PRN Nausea And Vomiting Senna 17.6 mg 06/20/21 10:00 07/02/21 09:04 Sennosides Oral Liqd 8.8 Mg/5 Ml Oral Liqd PO Not Given Q12HR JOLENE Simple Syrup 15 ml 06/19/21 19:20 Simple Syrup 15 Ml FEEDTUBE PRN PRN Hypoglycemia Simple Syrup 30 ml 06/19/21 19:20 Simple Syrup 15 Ml FEEDTUBE PRN PRN Hypoglycemia Sodium Bicarbonate 325 mg 06/19/21 19:20 Sodium Bicarbonate 325 Mg Tab FEEDTUBE PRN PRN For Clogged Feeding Tube Sodium Chloride 10 ml 06/11/21 22:00 07/02/21 09:04 Sodium Chloride 0.9% 10 Ml Flush Syringe IV 10 ml BID JOLENE Administration Sodium Chloride 10 ml 06/11/21 20:42 Sodium Chloride 0.9% 10 Ml Flush Syringe IV PRN PRN LINE FLUSH Nutrition/Malnutrition Assess - Dietary Evaluation Nutrition/Malnutrition Findings: Nutrition Notes Start: 06/16/21 12:10 Freq: Status: Active Protocol: Document 07/01/21 15:58 CANDIDO (Rec: 07/01/21 16:19 CANDIDO [id number]) Nutrition Notes Initial or Follow up Reassessment Current Diagnosis Diabetes,Sepsis,Hypertension, Respiratory Failure Other Pertinent Diagnosis Jeremiah's Angina, (R) Pneumothorax, Coagulopathy, s/ pCardiac Arrest, Gout... Current Diet TF-Vital AF 1.2 Quan @ 50 ml/hr (since D 06/21). Labs/Tests 07/01: Glu 177. Pertinent Medications 07/01: Insulin, others nutritionally unremarkable. Height 5 ft 8 in Weight 119.9 kg [place] Body Weight (kg) 63.63 BMI 40.1 Weight change and time frame 10.584 Kg body weight gain in 15 days reported Weight Status Morbidly Obese Subjective/Other Information RD consult for routine F/U on TF tolerance. TF continues as prescribed, with no significant events noted. Pt continues on Mechanical Ventilation through Tracheostomy, well tolerated, according to Progress notes. Hypernatremia controlled, flush backed off to 80 ml Q 4 hr. Pt still waiting for transfer to [place] or [facility]. Percent of energy/protein needs met: Prescribed Vital AF 1.2 Quan @ 50 ml/hr provides for energy/ protein needs (1,440 Kcal/90 g ) during LOS; 105% Kcal and 71 % AA. Burn Absent Trauma Absent GI Symptoms Other Difficulty In Swallowing,Chewing Food Allergy No Skin Integrity/Comment Surgical wounds. Current % PO Other Minimum of two criteria No #1 Nutrition Diagnosis Inadequate oral intake Diagnosis Progress(for reassessment Continues documentation) Is patient on ventilator? Yes Is Patient Ambulatory and/or Out of Bed No REE-([facility]-confined to bed) [phone] Calculation Used for Recommendations 65-70% energy needs Additional Notes Energy needs: 1280-1379kcal/ day Pro needs 2g/kg IBW: 127g/day Fluid needs 1ml/kcal Nutrition Intervention Nutrition Support: Continue Vital AF 1.2 Quan @ 50 ml/hr. Flush: 80 ml water flush Q 4 hr. Kcal 1,440 Protein (gm) 90 Carbohydrates (gm) 133 Fat (gm) 65 Fluid (mL) 973 Fiber (gm) 6 % RDI: 105% Kcal; 71% AA. Goal #1 Provide at least 75% of energy /protein needs through Enteral Feeding during LOS. Goal #2 Maintain body weight within +/ -3% of admission body weight during LOS. Follow-Up By: 07/08/21 Additional Comments Continue monitoring Mechanical Ventilation, Na/Flush, TF tolerance and BM.
--- NOTE | 2021-07-02 13:03 | Progress Note ---
Assessment and Plan Cultures: 06/12/2021 blood cultures: no growth A/P: 76-year-old female with diabetes, hypertension, gout was admitted to the hospital on 06/11/2021 with swelling of the submandibular region, tongue and difficulty breathing, labs also revealed severe coagulopathy due to Coumadin. 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 Shock resolved. s/p tracheostomy and PEG tube placement 06/19/2021. #Acute respiratory failure: s/p trach #Right-sided pneumothorax: s/p chest tube. #Diabetes mellitus, uncontrolled #Coagulopathy: Secondary to Coumadin. #Acute blood loss anemia Recs: -continue Zosyn -continue on steroid taper per pulm/ICU -Consider CT neck with IV contrast to rule out any abscess given mild fevers, persistent leukocytosis. Sinai Small MD [facility] ([facility] O: [phone] F: [phone] Subjective Date of service: 07/02/21 Interval history: Mild fever to 100.4 overnight. No other changes. Objective - Exam Narrative Exam: Physical Exam: Constitutional: Awake, on T-piece Head, Ears, Nose: Normocephalic, atraumatic. External ears, nose normal Eyes: Conjunctivae/corneas clear. No icterus. No ptosis. Oral: trach Cardiovascular: S1, S2 + Respiratory: AE reduced, right-sided chest tube. GI: Soft, bowel sounds +, PEG + Musculoskeletal: No pedal edema, no cyanosis. Skin: No rash or abscess Hem/Lymphatic: No palpable cervical or supraclavicular nodes. No lymphangitis Psych: no agitation Neurological: on t-piece examined. - Constitutional Vitals: Vital Signs Temp Pulse Resp BP Pulse Ox 99.4 F 106 H 22 151/78 100 07/02/21 11:07 07/02/21 12:00 07/02/21 12:00 07/02/21 11:07 07/02/21 12:00 Temperature -Last 24 Hours Temperature 99.4 F Temperature 100.4 F Temperature 99.6 F Temperature 99.6 F Temperature 98.7 F Temperature 95.7 F - Labs CBC & Chem 7: 07/01/21 05:29 07/01/21 05:29 Labs: Abnormal lab results 07/02/21 07/02/21 07/02/21 Range/Units 05:05 10:18 12:14 ABG pH 7.488 H (7.350-7.450) pH Units ABG pO2 97.2 H (80.0-90.0) mm Hg ABG HCO3 27.1 H (20.0-26.0) mmol/L ABG Base Excess 3.5 H (-2.0-3.0) mmol/L ABG Hemoglobin 7.9 L (12.0-16.0) gm/dl POC Glucose 182 H 184 H (70-105) mg/dL
[2021-07-02] MEDS ORDERED: HYDROGEN PEROXIDE 118 ML SOLUTION TP SCH (19:35)
[2021-07-02] MEDS: ENOXAPARIN 40 MG/0.4 ML INJ SUB-Q SCH (22:13)
[2021-07-02] MEDS: INSULIN GLARGINE 100 UNITS/ML SUB-Q SCH (22:14)
[2021-07-03] MEDS: ACETAMINOPHEN 325 MG/10.15 ML ORAL LIQD UNIT DOSE FEEDTUBE PRN (00:29)
[2021-07-03] MEDS: PIPERACIL/TAZOBACTA 4.5/NS 100 4.5 GM/100 ML VIAL IV SCH ×4 (00:30→19:22)
[2021-07-03] MEDS: INSULIN LISPRO 100 UNIT/ML SUB-Q SCH ×4 (00:30→19:20)
[2021-07-03] MEDS: hydrALAZINE 100 MG TAB FEEDTUBE SCH ×3 (06:40→22:08)
--- NOTE | 2021-07-03 08:47 | Progress Note ---
Assessment and Plan Doing well from airway issues. Lack of movement of extremities is of some concern. Consider neurology consult and pt ot for maintenance of rom/ splinting in positions to avoid contractures. Repeat white count pending this morning. Should this be elevated I would agree with doing a CT of the neck. CT of the head could be done also as requested by Dr. Salazar. Consider doing a CT of the chest as well to evaluate for occult pneumonias and/or mediastinal fluid collections. Subjective Date of service: 07/03/21 Narrative: Patient status post tracheostomy for upper airway obstruction secondary to Ludewig's angina. Last white count was 07/01/2021 was mildly elevated at 11,200. Repeat white count pending this morning. Should this be elevated I would agree with doing a CT of the neck. CT of the head could be done also as requested by Dr. Salazar. Consider doing a CT of the chest as well to evaluate for occult pneumonias and/or mediastinal fluid collections. Objective Vital Signs - 12hr 07/02/21 07/02/21 07/02/21 22:00 22:08 23:22 Temperature 99.0 F Pulse Rate 107 H Respiratory 18 Rate Blood Pressure 125/85 O2 Sat by Pulse 100 100 Oximetry O2 Sat by Pulse 100 Oximetry [ Assessment] 07/03/21 07/03/21 07/03/21 02:57 04:14 04:17 Temperature 98.5 F Pulse Rate 95 H Respiratory 17 Rate Blood Pressure 130/69 O2 Sat by Pulse 98 98 Oximetry O2 Sat by Pulse 98 Oximetry [ Assessment] - Labs 07/01/21 05:29 07/01/21 05:29
[2021-07-03] MEDS: FAMOTIDINE 20 MG TAB FEEDTUBE SCH ×2 (10:11→22:07)
[2021-07-03] MEDS: amLODIPine 5 MG TAB PO SCH (10:11)
--- NOTE | 2021-07-03 10:23 | Progress Note ---
Assessment and Plan Assessment and plan: 76-year-old female with past medical history of diabetes mellitus type 2, hypertension and gout who was admitted to the hospital on 06/11/2021 with swelling of the submandibular region/tongue and shortness of breath. 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 Patient was also noted to have severe coagulopathy due to Coumadin and probably component of hemorrhagic shock with blood loss anemia. S/p vasopressor support with Levophed and Fabian- Synephrine Patient had hospital course complicated by cardiac arrest on 06/14 with ROSC. Patient is status post trach and PEG tube placement on 06/19/2021. Acute hypoxic respiratory failure. -S/p emergent cricothyroidectomy with surgery with 8.00 ETT -s/p trach 06/19 with surgery (#[address]) -T-piece trials started 06/26 -ST: Unable to tolerate [place] valve on 06/28 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 from dental caries. -CT neck with contrast showed a significant right floor of mild swelling with extension into the submandibular and submental spaces, significant thickening and inflammation involving the right pharyngeal wall, with the parapharyngeal and retropharyngeal spaces at the level of the thyroid cartilage, epiglottis significantly swollen and so are the aryepiglottic folds resulting in significant airway narrowing at this level, no lymphadenopathy, symmetric submandibular and parathyroid glands, S few scattered caries but no periapical lucencies, nonspecific calcification along the right lateral oropharynx, no definite stone seen within the territory of the submandibular gland ducts, no suspicious rashes lesion -Infectious disease and general surgery consulted, appreciate recommendations Right-sided pneumothorax. -s/p Right chest tube removed 06/29 -06/13 bronchoscopy showed possible blood clot in left lung which may be acting as mucous plug however it was left in place due to possible bleeding inside lung if removed. -06/16 CT chest shows moderate right pneumothorax with collapse of right upper lobe, right thoracostomy tube terminates at the collapsed right upper lobe, bilateral bronchus opacities compatible with infectious/inflammatory etiology, bilateral small pleural effusion, extensive subcutaneous air, small fluid collection in the anterior mediastinum is nonspecific Cardiac arrest. Patient s/p cardiac arrest with ROSC on 06/14. -S/p vasopressor support with Levophed and Fabian-Synephrine -06/13 Echocardiogram EF 65-70% Diabetes mellitus type 2 Coagulopathy Acute blood loss anemia Hospital course to date: 06/12: Patient received additional 2 units FFP and 1 unit PRBC and vitamin K today. Overnight critical care placed a femoral CVL. Patient sedated on fentanyl, propofol and Versed. Currently on Fabian-Synephrine and Levophed for blood pressure maintenance. Remains amatory support. Infectious disease consulted. Started on sliding scale insulin and recultured. COVID-19 PCR pending. Surgery at bedside to place chest tube. 06/13: Patient was taken back to the OR today for exchange cricothyroid to possible tracheostomy. Patient returned with ETT. Chest tube was changed to larger size in the OR. Patient was hypotensive, tachycardic, hypoxic in the OR and received hespan, albumin and an A-line. Upon arrival patient was increased to max dose Levophed for hypotension which has resolved. Titrating vasopressors as tolerated. Remains on sedation with 3 agents. Apparently patient was not ventilating her left lung Intra-Op. Noted to have subcu hematoma and trauma to postpharyngeal area. Questionable decrease cardiac wall motion noted in OR-> will order echocardiogram to further investigate. Patient received additional PRBC today. DIC panel resulted as normal. Patient BUN/creatinine did increase as well as noted to have lactic acidosis. May need IV bolus in addition to pressor use. Likely bronc with Pulmicort today as repeat CXR showed right possible pneumo hydrothorax 06/14: Antibiotics changed to Zosyn per ID, surgical packing removed from neck and makeshift [place] drain placed by surgery and old chronic thyroidectomy site. CXR was completed and RN heard gurgling and blood was noted on dressing. ST elevation noted on bedside monitor and patient was hypoxic. FiO2 increased to 100%. However shortly after patient lost her pulse and ACLS was initiated. Patient received 3 rounds of epinephrine and ROSC was achieved. Stat portable CXR showed resolution of lower lobe collapse on the left and stable right-sided chest tube with hemothorax. CCM updated family. Patient H/H noted to be 7.2/23.2 and did RN to transfuse prepared PRBC which [facility] blood bank. Bedside echo completed. 06/15: Off sedation, intermittently follows commands, remains on the prednisone. Surgery will reassess airway on Thursday to see if any further support is required. Urine studies indicate prerenal, given IV bolus and started on Clinimix today. 06/16: Patient restarted on fentanyl drip due to hypertension. Given more LR due to CR improvement post LR yesterday. Patient started on Lantus subcu after given one-time dose of Lantus. PICC placed today. Patient had a CT chest today which showed no mediasinusitis but extensive subcutaneous air. 06/17: General Surgery recommended transferring patient to a ENT specialized facility. Placed a call to [facility] [place], spoke with the stretcher leveler operator, Dr. Duckworth, who stated that a transfer is possible as long their ENT team accept the patient. Awaiting on a final response. Continue current supportive measures. Basal insulin adjusted for hyperglycemia. 06/18: JEREMIAS overnight. Hypertensive this am, PRN Hydralazine for SBP greater than 160. Remains hyperglycemic, patient is on IV steroids and TPN, basal insulin adjusted. Plan for possible transfer to [place] once an ICU bed is available. 06/19: Low SPO2 and hypotension overnight required Levophed for a short time. Overnight CXR noted with no significant changed. Patient is stable this am and off pressors. Plan for possible Trach and PEG today by General Surgery. 06/20: s/p Trach and PEG. Some bleeding overnight s/p X1 dose of Vitamin K. The bleeding resolved this am, H&H remains stable. Attempted a SAT this am, patient went into SVT, HR in the 160-170 which resolved once sedations were resumed. Plan is to continue to sedation for now, attempt to wean off propofol for a RASS goal of 0 to -2. D/C CCM plan is to wean off sedation as tolerated for PST for possible extubation. Okay to use PEGT per Gen. Surgery. Nutrition consulted for TF management, TF to start tonight once current TPN bag is completed. BG remains elevated, continue current SSI and basal for now, will start tapering IV steroids tomorrow. FWF added for hyponatremia. Wean off pressors as tolerated for MAP above 65. Possible transfer to [place] for ENT eval. 06/21: Overnight events and CXR noted. Worsen subcutaneous emphysema and Rt. Pneumo. CT remains in place and intact to cont. wall suction. Patient remains hemodynamically stable, still on low vent setting. will continue to monitor for now. Patient is also tolerating enteral nutrition via PEGT, TPN D/benjamín. H&H is also trending down, no s/s of any active bleeding. Will continue to trend H&H, transfuse if hgb is less than 7. FWF increased for hypernatremia. Still waiting on possible transfer to [place]. 06/22: JEREMIAS overnight. Subcutaneous emphysema is unchanged. CXR with mild improvement. Patient remains hemodynamically stable. Hydralazine added Q8hr for HTN. FWF increased for hypernatremia. Awaiting transfer to [place] for ENT eval. 06/23: Over 70cc from CT overnight, subcutaneous emphysema with mild improvement. Patient is also tolerating PST this am. Repeat CXR in the am. Patient is still hypertensive, will added norvasc for better control. Continue FWF for hypernatre sergio and electrolytes replacement as needed, repeat labs in the am. Darin in wbcs this am, patient remains afebrile and on IV Abx, most likely due to IV steroids continue to monitor. Continue to taper IV steroids. Hyperglycemia is also improving, continue current SSI and basal for now. 06/24: Patient is anemic today and transfused 1 unit PRBC, hypokalemia and hypophosphatemia repleted, will continue every 6 H/H for now to monitor for bleeding, steroid taper continues, still awaiting transfer to [place], PT/OT consulted, CCM to talk to case management regarding LTAC transfer. 06/25: Patient responded appropriately to yesterday, placed on pressure support trial today. Per CCM hopefully T-piece in the next 24 to 48 hours and will continue decrease steroids further on . Lujan catheter removed today. 06/26: Patient started T-piece trials, H/H remained stable. Surgery plans to remove chest tube once weaned off ventilator. Increasing her water flush given hypernatremia. 06/27: Chest tube placed to waterseal, T-piece trial trials ongoing. Remains on Zosyn and steroids being tapered. Increasing free water flush, insulin and added 3 times daily insulin. 06/28: Hypernatremia persists, started on D5W for 1 L, replace potassium. Chest tube remains to waterseal. 06/29: Chest tube removed by surgery today, hyponatremia better and dextrose discontinued, hypokalemia noted which was repleted. Speech did see but patient had decreased voice quality and increased wob so aborted 06/30: Hypokalemia noted on labs will be repleted, leukocytosis continues to improve. Continues on T-piece trials and is following commands. 07/01: Transfer from ICU on 06/30. Patient was stable with a trach and T-piece on 5 L. Tolerating tube feeds. 07/02: Patient remains on T-piece with trach in place. On 5 L of O2. She is alert and responds appropriately but not well due to trach tube. Tolerating tube feeds. Appears comfortable. No complaints. No new events reported. Case management reports patient with plans for LTAC placement. 07/03: Patient remains on T-piece with trach in place. On 5 L of O2. Patient tolerating tube feeds. We will check CT of head, neck and chest per pulmonary and general surgery recommendations based on CBC this morning. If leukocytosis persists we will proceed with studies. Patient remains afebrile today. History Interval history: No new issues overnight. Hospitalist Physical - Constitutional Vitals: Temp Pulse Resp BP Pulse Ox 99.1 F 91 H 18 140/77 100 07/03/21 08:22 07/03/21 08:22 07/03/21 08:22 07/03/21 08:22 07/03/21 08:59 General appearance: Present: no acute distress, obese (Morbidly obese), other (On T-piece with trach in place.) - EENT Eyes: Present: PERRL, EOM intact ENT: hearing intact, clear oral mucosa, dentition normal - Neck Neck: Present: supple, normal ROM - Respiratory Respiratory effort: normal Respiratory: bilateral: CTA - Cardiovascular Rhythm: regular Heart Sounds: Present: S1 & S2. Absent: gallop, rub - Extremities Extremities: no ischemia, No edema, Full ROM - Abdominal General gastrointestinal: soft, non-tender, non-distended, normal bowel sounds - Integumentary Integumentary: Present: clear, warm, dry - Neurologic Neurologic: CNII-XII intact, moves all extremities HEART Score - HEART Score Troponin: Troponin T < 0.010 ng/mL (0.00-0.029) 06/11/21 23:21 Results - Labs CBC & Chem 7: 07/01/21 05:29 07/01/21 05:29 Labs: Laboratory Last Values WBC 11.9 K/mm3 (4.5-11.0) H 07/01/21 05:29 RBC 3.00 M/mm3 (3.65-5.03) L 07/01/21 05:29 Hgb 8.1 gm/dl (10.1-14.3) L 07/01/21 05:29 Hct 24.4 % (30.3-42.9) L 07/01/21 05:29 MCV 82 fl (79-97) 07/01/21 05:29 MCH 27 pg (28-32) L 07/01/21 05:29 MCHC 33 % (30-34) 07/01/21 05:29 RDW 21.7 % (13.2-15.2) H 07/01/21 05:29 Plt Count 165 K/mm3 (140-440) 07/01/21 05:29 Lymph % (Auto) 3.5 % (13.4-35.0) L 06/21/21 04:42 [place] % (Auto) 11.7 % (0.0-7.3) H 06/21/21 04:42 Eos % (Auto) 0.0 % (0.0-4.3) 06/21/21 04:42 Baso % (Auto) 0.1 % (0.0-1.8) 06/21/21 04:42 Lymph # (Auto) 0.5 K/mm3 (1.2-5.4) L 06/21/21 04:42 [place] # (Auto) 1.8 K/mm3 (0.0-0.8) H 06/21/21 04:42 Eos # (Auto) 0.0 K/mm3 (0.0-0.4) 06/21/21 04:42 Baso # (Auto) 0.0 K/mm3 (0.0-0.1) 06/21/21 04:42 Add Manual Diff Complete 06/30/21 04:25 Total Counted 100 06/30/21 04:25 Seg Neutrophils % 84.7 % (40.0-70.0) H 06/21/21 04:42 Seg Neuts % (Manual) 81.0 % (40.0-70.0) H 06/30/21 04:25 Band Neutrophils % 0 % 06/30/21 04:25 Lymphocytes % (Manual) 10.0 % (13.4-35.0) L 06/30/21 04:25 Reactive Lymphs % (Man) 0 % 06/30/21 04:25 Monocytes % (Manual) 8.0 % (0.0-7.3) H 06/30/21 04:25 Eosinophils % (Manual) 1.0 % (0.0-4.3) 06/30/21 04:25 Basophils % (Manual) 0 % (0.0-1.8) 06/30/21 04:25 Metamyelocytes % 0 % 06/30/21 04:25 Myelocytes % 0 % 06/30/21 04:25 Promyelocytes % 0 % 06/30/21 04:25 Blast Cells % 0 % 06/30/21 04:25 Nucleated RBC % Not Reportable 06/30/21 04:25 Seg Neutrophils # 12.8 K/mm3 (1.8-7.7) H 06/21/21 04:42 Seg Neutrophils # Man 10.5 K/mm3 (1.8-7.7) H 06/30/21 04:25 Band Neutrophils # 0.0 K/mm3 06/30/21 04:25 Lymphocytes # (Manual) 1.3 K/mm3 (1.2-5.4) 06/30/21 04:25 Abs React Lymphs (Man) 0.0 K/mm3 06/30/21 04:25 Monocytes # (Manual) 1.0 K/mm3 (0.0-0.8) H 06/30/21 04:25 Eosinophils # (Manual) 0.1 K/mm3 (0.0-0.4) 06/30/21 04:25 Basophils # (Manual) 0.0 K/mm3 (0.0-0.1) 06/30/21 04:25 Metamyelocytes # 0.0 K/mm3 06/30/21 04:25 Myelocytes # 0.0 K/mm3 06/30/21 04:25 Promyelocytes # 0.0 K/mm3 06/30/21 04:25 Blast Cells # 0.0 K/mm3 06/30/21 04:25 WBC Morphology Not Reportable 06/30/21 04:25 Hypersegmented Neuts Not Reportable 06/30/21 04:25 Hyposegmented Neuts Not Reportable 06/30/21 04:25 Hypogranular Neuts Not Reportable 06/30/21 04:25 Smudge Cells Not Reportable 06/30/21 04:25 Toxic Granulation Not Reportable 06/30/21 04:25 Toxic Vacuolation Not Reportable 06/30/21 04:25 Dohle Bodies Not Reportable 06/30/21 04:25 Pelger-Huet Anomaly Not Reportable 06/30/21 04:25 Dennis Rods Not Reportable 06/30/21 04:25 Platelet Estimate Consistent w auto 06/30/21 04:25 Clumped Platelets Not Reportable 06/30/21 04:25 Plt Clumps, EDTA Not Reportable 06/30/21 04:25 Large Platelets Few 06/30/21 04:25 Giant Platelets Not Reportable 06/30/21 04:25 Platelet Satelliting Not Reportable 06/30/21 04:25 Plt Morphology Comment Not Reportable 06/30/21 04:25 RBC Morphology Not Reportable 06/30/21 04:25 Dimorphic RBCs Not Reportable 06/30/21 04:25 Polychromasia Rare 06/30/21 04:25 Hypochromasia 1+ 06/30/21 04:25 Poikilocytosis Not Reportable 06/30/21 04:25 Anisocytosis 1+ 06/30/21 04:25 Microcytosis Not Reportable 06/30/21 04:25 Macrocytosis Not Reportable 06/30/21 04:25 Spherocytes Not Reportable 06/30/21 04:25 Pappenheimer Bodies Not Reportable 06/30/21 04:25 Sickle Cells Not Reportable 06/30/21 04:25 Target Cells Rare 06/30/21 04:25 Tear Drop Cells Few 06/30/21 04:25 Ovalocytes Not Reportable 06/30/21 04:25 Stomatocytes Few 06/12/21 01:45 Helmet Cells Not Reportable 06/30/21 04:25 [place] Bodies Not Reportable 06/30/21 04:25 [place] Rings Not Reportable 06/30/21 04:25 Nelsy Cells Not Reportable 06/30/21 04:25 Bite Cells Not Reportable 06/30/21 04:25 Crenated Cell Not Reportable 06/30/21 04:25 Elliptocytes Not Reportable 06/30/21 04:25 Acanthocytes (Spur) Not Reportable 06/30/21 04:25 Rouleaux Not Reportable 06/30/21 04:25 Hemoglobin C Crystals Not Reportable 06/30/21 04:25 Schistocytes Not Reportable 06/30/21 04:25 Malaria parasites Not Reportable 06/30/21 04:25 Edin Bodies Not Reportable 06/30/21 04:25 Hem Pathologist Commnt No 06/30/21 04:25 PT 18.3 Sec. (12.2-14.9) H 06/20/21 04:33 INR 1.37 (0.87-1.13) H 06/20/21 04:33 APTT 26.4 Sec. (24.2-36.6) 06/13/21 Unknown Fibrinogen 546 mg/dl (211-480) H 06/13/21 Unknown D-Dimer 1244.63 ng/mlDDU (0-234) H 06/13/21 Unknown ABG pH 7.488 pH Units (7.350-7.450) H 07/02/21 10:18 POC ABG pCO2 25.6 mmHg (32.0-48.0) L 06/13/21 04:31 ABG pCO2 36.5 mm Hg 07/02/21 10:18 POC ABG pO2 138.8 mmHg (83-108) H 06/13/21 04:31 ABG pO2 97.2 mm Hg (80.0-90.0) H 07/02/21 10:18 POC ABG HCO3 21.4 06/13/21 04:31 ABG HCO3 27.1 mmol/L (20.0-26.0) H 07/02/21 10:18 ABG O2 Saturation 97.7 % (95.0-99.0) 07/02/21 10:18 ABG O2 Content 10.8 (0.0-44) 07/02/21 10:18 POC ABG Base Excess -0.7 06/13/21 04:31 ABG Base Excess 3.5 mmol/L (-2.0-3.0) H 07/02/21 10:18 ABG Hemoglobin 7.9 gm/dl (12.0-16.0) L 07/02/21 10:18 ABG Oxyhemoglobin 98.1 (94-98) H 06/13/21 04:31 ABG Carboxyhemoglobin 1.8 % (0.0-5.0) 07/02/21 10:18 ABG Methemoglobin 0.5 % (0.0-1.5) 07/02/21 10:18 Oxyhemoglobin 95.5 % (95.0-99.0) 07/02/21 10:18 Carboxyhemoglobin 0.8 (0.5-1.5) 06/13/21 04:31 FiO2 35 % 07/02/21 10:18 FiO2 % 40.0 06/13/21 04:31 Sodium 143 mmol/L (137-145) 07/01/21 05:29 Potassium 3.7 mmol/L (3.6-5.0) 07/01/21 05:29 Chloride 106.3 mmol/L (98-107) 07/01/21 05:29 Carbon Dioxide 27 mmol/L (22-30) 07/01/21 05:29 Anion Gap 13 mmol/L 07/01/21 05:29 BUN 16 mg/dL (7-17) 07/01/21 05:29 Creatinine 0.9 mg/dL (0.6-1.2) 07/01/21 05:29 Estimated GFR > 60 ml/min 07/01/21 05:29 BUN/Creatinine Ratio 18 % 07/01/21 05:29 Glucose 177 mg/dL (65-100) H 07/01/21 05:29 POC Glucose 194 mg/dL (70-105) H 07/02/21 16:18 Lactic Acid 5.30 mmol/L (0.7-2.0) H* 06/13/21 15:45 Calcium 8.5 mg/dL (8.4-10.2) 07/01/21 05:29 Phosphorus 2.70 mg/dL (2.5-4.5) 07/01/21 05:29 Magnesium 2.10 mg/dL (1.7-2.3) 07/01/21 05:29 Total Bilirubin 0.40 mg/dL (0.1-1.2) 06/15/21 03:56 AST 64 units/L (5-40) H 06/15/21 03:56 ALT 106 units/L (7-56) H 06/15/21 03:56 Alkaline Phosphatase 55 units/L (35-129) 06/15/21 03:56 Troponin T < 0.010 ng/mL (0.00-0.029) 06/11/21 23:21 C-Reactive Protein 3.30 mg/dL (0.00-1.30) H 06/16/21 04:32 Total Protein 5.1 g/dL (6.3-8.2) L 06/15/21 03:56 Albumin 2.9 g/dL (3.9-5) L 06/15/21 03:56 Albumin/Globulin Ratio 1.3 % 06/15/21 03:56 Triglycerides 254 mg/dL (2-149) H 06/21/21 04:42 Urine Color Yellow (Yellow) 06/12/21 17:00 Urine Turbidity Clear (Clear) 06/12/21 17:00 Urine pH 5.0 (5.0-7.0) 06/12/21 17:00 Ur Specific [place] 1.035 (1.003-1.030) H 06/12/21 17:00 Urine Protein 30 mg/dl mg/dL (Negative) 06/12/21 17:00 Urine Glucose (UA) 50 mg/dL (Negative) 06/12/21 17:00 Urine Ketones Tr mg/dL (Negative) 06/12/21 17:00 Urine Blood Neg (Negative) 06/12/21 17:00 Urine Nitrite Neg (Negative) 06/12/21 17:00 Urine Bilirubin Neg (Negative) 06/12/21 17:00 Urine Urobilinogen < 2.0 mg/dL (<2.0) 06/12/21 17:00 Ur Leukocyte Esterase Neg (Negative) 06/12/21 17:00 Urine WBC (Auto) < 1.0 /HPF (0.0-6.0) 06/12/21 17:00 Urine RBC (Auto) < 1.0 /HPF (0.0-6.0) 06/12/21 17:00 Urine Creatinine 81.1 mg/dL (0.1-20.0) H 06/15/21 10:40 Urine Sodium 42 mmol/L 06/15/21 10:40 Coronavirus (PCR) Negative (Negative) 06/12/21 09:50 Blood Type O POSITIVE 06/24/21 06:40 Antibody Screen Negative 06/24/21 06:40 Crossmatch See Detail 06/24/21 06:40 Lujan/IV: Voiding Method Indwelling Catheter Active Medications - Current Medications Current Medications: Generic Name Dose Route Start Last Admin Trade Name Freq PRN Reason Stop Dose Admin Acetaminophen 650 mg 07/02/21 09:00 07/03/21 00:29 Acetaminophen 325 Mg/10.15 Ml Oral Liqd Unit Dose FEEDTUBE 650 mg Q6H PRN Administration Pain, Mild (1-3) Amlodipine Besylate 5 mg 06/23/21 10:00 07/03/21 10:11 Amlodipine 5 Mg Tab PO 5 mg QDAY JOLENE Administration Lipase/Protease/Amylase 1 each 06/19/21 19:20 Lipase 10,500/Protease 25,000/Amylase 43,750 (Units) Dr Melgar FEEDTUBE PRN PRN For Clogged Feeding Tube Atorvastatin Calcium 20 mg 06/22/21 22:00 07/02/21 22:13 Atorvastatin 20 Mg Tab PO 20 mg QHS JOLENE Administration Enoxaparin Sodium 40 mg 06/30/21 22:00 07/02/21 22:13 Enoxaparin 40 Mg/0.4 Ml Inj SUB-Q 40 mg QDAY@2200 JOLENE Administration Protocol Famotidine 20 mg 06/24/21 22:00 07/03/21 10:11 Famotidine 20 Mg Tab FEEDTUBE 20 mg BID JOLENE Administration Hydralazine HCl 100 mg 06/22/21 19:00 07/03/21 06:40 Hydralazine 100 Mg Tab FEEDTUBE 100 mg Q8HR JOLENE Administration Hydrogen Peroxide/Benzyl Alcohol 1 applic 07/02/21 19:35 Hydrogen Peroxide 118 Ml Solution TP ONCE JOLENE Piperacillin Sod/Tazobactam Sod 4.5 gm in 100 mls @ 200 mls/hr 06/25/21 12:00 07/03/21 06:40 Zosyn/Ns 4.5gm/100ml IV 100 mls/hr Q6HR JOLENE Administration Protocol Insulin Glargine 25 units 06/30/21 22:00 07/02/21 22:14 Insulin Glargine 100 Units/Ml SUB-Q 25 units QHS JOLENE Administration Insulin Human Lispro 0 unit 06/12/21 12:00 07/03/21 06:40 Insulin Lispro 100 Unit/Ml SUB-Q 4 unit Q6HR JOLENE Administration Protocol Labetalol HCl 10 mg 06/21/21 18:00 06/27/21 00:53 Labetalol 20 Mg/4 Ml Inj IV 10 mg Q4HR PRN Administration Hypertension Metoclopramide HCl 10 mg 06/11/21 20:42 Metoclopramide 10 Mg/2 Ml Inj IV Q6H PRN Nausea And Vomiting Ondansetron HCl 4 mg 06/11/21 20:42 Ondansetron 4 Mg/2 Ml Inj IV Q3H PRN Nausea And Vomiting Simple Syrup 15 ml 06/19/21 19:20 Simple Syrup 15 Ml FEEDTUBE PRN PRN Hypoglycemia Simple Syrup 30 ml 06/19/21 19:20 Simple Syrup 15 Ml FEEDTUBE PRN PRN Hypoglycemia Sodium Bicarbonate 325 mg 06/19/21 19:20 Sodium Bicarbonate 325 Mg Tab FEEDTUBE PRN PRN For Clogged Feeding Tube Sodium Chloride 10 ml 06/11/21 22:00 07/03/21 10:11 Sodium Chloride 0.9% 10 Ml Flush Syringe IV 10 ml BID JOLENE Administration Sodium Chloride 10 ml 06/11/21 20:42 Sodium Chloride 0.9% 10 Ml Flush Syringe IV PRN PRN LINE FLUSH Nutrition/Malnutrition Assess - Dietary Evaluation Nutrition/Malnutrition Findings: Nutrition Notes Start: 06/16/21 12:10 Freq: Status: Active Protocol: Document 07/01/21 15:58 CANDIDO (Rec: 07/01/21 16:19 CANDIDO [id number]) Nutrition Notes Initial or Follow up Reassessment Current Diagnosis Diabetes,Sepsis,Hypertension, Respiratory Failure Other Pertinent Diagnosis Jeremiah's Angina, (R) Pneumothorax, Coagulopathy, s/ pCardiac Arrest, Gout... Current Diet TF-Vital AF 1.2 Quan @ 50 ml/hr (since D 06/21). Labs/Tests 07/01: Glu 177. Pertinent Medications 07/01: Insulin, others nutritionally unremarkable. Height 5 ft 8 in Weight 119.9 kg [place] Body Weight (kg) 63.63 BMI 40.1 Weight change and time frame 10.584 Kg body weight gain in 15 days reported Weight Status Morbidly Obese Subjective/Other Information RD consult for routine F/U on TF tolerance. TF continues as prescribed, with no significant events noted. Pt continues on Mechanical Ventilation through Tracheostomy, well tolerated, according to Progress notes. Hypernatremia controlled, flush backed off to 80 ml Q 4 hr. Pt still waiting for transfer to [place] or [facility]. Percent of energy/protein needs met: Prescribed Vital AF 1.2 Quan @ 50 ml/hr provides for energy/ protein needs (1,440 Kcal/90 g ) during LOS; 105% Kcal and 71 % AA. Burn Absent Trauma Absent GI Symptoms Other Difficulty In Swallowing,Chewing Food Allergy No Skin Integrity/Comment Surgical wounds. Current % PO Other Minimum of two criteria No #1 Nutrition Diagnosis Inadequate oral intake Diagnosis Progress(for reassessment Continues documentation) Is patient on ventilator? Yes Is Patient Ambulatory and/or Out of Bed No REE-([facility]-confined to bed) [phone] Calculation Used for Recommendations 65-70% energy needs Additional Notes Energy needs: 1280-1379kcal/ day Pro needs 2g/kg IBW: 127g/day Fluid needs 1ml/kcal Nutrition Intervention Nutrition Support: Continue Vital AF 1.2 Quan @ 50 ml/hr. Flush: 80 ml water flush Q 4 hr. Kcal 1,440 Protein (gm) 90 Carbohydrates (gm) 133 Fat (gm) 65 Fluid (mL) 973 Fiber (gm) 6 % RDI: 105% Kcal; 71% AA. Goal #1 Provide at least 75% of energy /protein needs through Enteral Feeding during LOS. Goal #2 Maintain body weight within +/ -3% of admission body weight during LOS. Follow-Up By: 07/08/21 Additional Comments Continue monitoring Mechanical Ventilation, Na/Flush, TF tolerance and BM.
[2021-07-03 10:41] LABS: Basophils # (Auto) 0.1 K/mm3 (0.0-0.1); Basophils % (Auto) 0.7 % (0.0-1.8); Eosinophils # (Auto) 0.4 K/mm3 (0.0-0.4); Eosinophils % (Auto) 3.9 % (0.0-4.3); Hematocrit 24.3 % (30.3-42.9); Hemoglobin 8.3 gm/dl (10.1-14.3); Lymphocytes # (Auto) 0.8 K/mm3 (1.2-5.4); Lymphocytes % (Auto) 8.4 % (13.4-35.0); Mean Corpuscular HGB Conc 34 % (30-34); Mean Corpuscular Volume 81 fl (79-97); Monocytes # (Auto) 0.6 K/mm3 (0.0-0.8); Monocytes % (Auto) 6.4 % (0.0-7.3); Platelet Count 171 K/mm3 (140-440); Red Blood Count 3.01 M/mm3 (3.65-5.03); Red Cell Distribution Width 21.7 % (13.2-15.2)
[2021-07-03 11:18] LABS: Blood Urea Nitrogen 15 mg/dL (7-17); Calcium 8.3 mg/dL (8.4-10.2); Hemolysis Index 5
[2021-07-03 11:20] LABS: BUN/Creatinine Ratio 21
--- NOTE | 2021-07-03 12:56 | Progress Note ---
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 07/03/21: Continue current level of care. CM working on placement. 07/02/21: ABG now. Patient did have low grade temp earlier today and still has a white count despite being off steroids. It is trending down. Reviewed ID note and they did mention of persistent consider ct of neck. May need to do this. If done, please scan head as well. Will continue to follow. Spoke with RT about obtaining ABG. 07/01/21: Continue T-piece. Follow up speech recs. Follow up electrolytes. PT/OT. Stable for transfer when bed available 06/30/21: Aggressive replacement of electrolytes. Will repeat chemistry tonight around 8. please call for orders as we would like to keep her K at 4 and Mag at 2. Chemistry in the am. Stable for transfer to telemetry floor. 06/29/21: Speech did see but patient had decreased voice quality and increased wob so aborted. Will ask them to assess again on Thursday. Chest tube out and ordered follow up CXR. Stable for transfer but ok with continuing monitoring in ICU. If bed needed could go to step down. 06/28/21: monitor drainage in ICU for 24 more hours. Can likely come out tomorrow. Continue in ICU for now. Once chest tube out, no objection to transfer. 06/27/21: Will place chest tube to water seal. Instructed staff if any change in respiratory status, place back on suction and obtain CXR. Otherwise will leave off. Continue T-piece as tolerated. Rehab/custodial/LTACH appropriate. STable for transfer if and when bed becomes available. 06/26/21: T-piece today. If off the vent, agree with surgery and removal of chest tube as subq emphysema is improving as well. PT has seen suggested LTACH, however if we are able to wean she may need custodial/rehab. Prognosis continues to improve. 06/25/21: Continue PSV as tolerated. Hopeful T-piece in the next 24-48 hours. Will drop steroids down further on . Can switch to daily and even change to oral. PT/OT consult, and follow up recs. May need LTACH vs rehab vs both. Continue to follow. 06/24/21: Daily PSV trials. Maybe ready for T-piece sson. Continue to wean steroids to off. IMS changed to 40q12 which is fine. Continue chest tube until off vent. Still on list for [facility] but will discuss with CM about checking into LTACH as patient will need rehab. PT/OT consult. 06/21/21: Continue current level of sedation. Chest tube does not have air leak but there is clear evidence of a PTX on right. Stripped tube at bedside and will repeat CXR in the morning. Hold on weaning sedation for now and hold on PSV trials. May need second chest tube vs vats if PTX worsens or does not resolve. Patient still on list for [facility], hopeful they will have a bed soon. Drop steroids to 40q8 starting Thursday. Monitor renal function, likely will improve. Needs more free water. Prognosis still remains guarded. 06/20/21: Restart some sedation. At least pain and maybe diprovan. Would like to wake patient up at some point and attempt some PSV trials. Labs are off this am. Large bump in white count but no fever, also no diff drawn. Could be error vs steroid related but this is in just 24 hours. Will repeat tomorrow. If spikes a temp neves culture as well. Small bump in Cr but still in normal range. Will watch. Now that peg in place, tube feeds and free water flushes. Still on list for [place]. Patient has been steroids greater than 7 days so will have to wean. Can drop to 60q8 starting tomorrow. Prognosis still remains guarded. 06/19/21: surgery to attempt trach and peg today. Still will ask to keep on transfer list for [place] as her other issues still need to be addressed. If able to place peg, can stop clinimix, give free water and start tube feeds. Prognosis remains guarded. pH better with drop in tidal volume. 06/18/21: [facility] has agreed to accept but no ICU beds available at this time. Spoke with Dr. Vasquez yesterday and Dr. Patricia spoke with ENT there. Spoke with RT this am and patient did have a leak when cuff let down and her tidal volumes dropped to below 100. Patient remains on abx and steriods. Will consider lightening sedation tomorrow and seeing how patient does if cuff leak persists. Dropped tidal volumes to 450. Continue PPN for now. 06/17/21: spoke with surgery and they feel transfer is reasonable. I have r eached out to [facility] and IMS has spoken with someone from [place]. Await to hear back from them. Continue supportive measures and adequate sedation for pain control. No PSV trials as of yet. Blood sugar control, increase lantus. Most likely secondary to steroids. Continue abx therapy. Guarded prognosis. 06/16/21: Renal function improved with fluids. IMS to give more fluids (LR) today which I agree with. FeNa is =0.7. Should be fluid responsive. Continue clinimix. Needs long acting insulin. Agree with lantus. Asked nursing to increase sedation now that we know that patient's mental status is stable. Picc today. Air leak test vs Neck CT on tomorrow. 06/15/21: Hopeful with worsening renal function ( likely from code on yesterday) that sedatives are just lingering from that. Still making good urine but output has fallen off. Will send urine sodium and urine cr to check Fena. Most likely this is prerenal. ordered renal ultrasound as well. Continue abx and steroids. Will start clinimix today. This should help with the free water piece. Will give another liter bolus of LR right now. Keep sedation off for now. Guarded prognosis. 06/14/21: Will discuss with surgery future plans. They have ordered steroids to help with inflammation and abx continue. All others appears stable and no acute evidence of bleeding at this time. Follow up surgery recs if any new ones. Guarded prognosis. 06/13/21: Patient to back to OR today. BLood transfusion. Will send DIC panel and may need to given cryo if over 6 units of PRBC's given. Patient will likely need trach and peg as we need to address nutrition. Chest tube placed, large bore now. Patient now with right sided effusion. Hemothorax???. Will continue to monitor output. Needs picc line as femoral should come out soon. Continue pressors. Continue sedation for pain control and comfort. Guarded prognosis. Surgery comfortable with neck and current situation so they have not request transfer. 1. Placed right femoral central line. pressors can run through this. 2. Repeat chemistry stat given bicarb of 8 and blood sugar of greater than 600. Ordering FSBS now. Earlier bicarb was 25. If accurate will need bicarb drip and vasopressin but not sure as pH on blood gas was normal done around the same time. 3. Coagulopathy is improving. INR down to 4.55 and PTT and pT improving. Will continue to give FFP. Ordered more vitamin K. H/H is stable but patient is oozing from neck and mouth. 4. Vasopressor for blood pressure. Need to keep map 65 and greater 5. Lujan is needed for accurate I/O 6. Surgery called by IMS about current CT situation. They state they will reassess in the am. I have reviewed the images myself. If I can position the patient safely without compromising the airway after adequate sedation, may consider placing chest tube now as INR is better and FFP is hanging. Patient is morbidly obese so shits could move the ET tube so if not safe, will wait until surgery comes in the morning. 7. Would not attempt to pass OG or NG tube given current situation in neck 8. Will discuss with surgery tomorrow but I feel this patient should be transferred to a tertiary care facility with ENT as we do not have that service here. CCT 31 minutes. Subjective Date of service: 07/03/21 Interval history: No acute events. Objective Vital Signs - 12hr 07/03/21 07/03/21 07/03/21 02:57 04:14 04:17 Temperature 98.5 F Pulse Rate 95 H Respiratory 17 Rate Blood Pressure 130/69 O2 Sat by Pulse 98 98 Oximetry O2 Sat by Pulse 98 Oximetry [ Assessment] 07/03/21 07/03/21 07/03/21 08:00 08:22 08:59 Temperature 99.1 F Pulse Rate 91 H Respiratory 18 Rate Blood Pressure 140/77 O2 Sat by Pulse 100 100 Oximetry O2 Sat by Pulse 100 Oximetry [ Assessment] 07/03/21 07/03/21 10:00 11:25 Temperature 98.0 F Pulse Rate 75 Respiratory 18 Rate Blood Pressure 131/84 O2 Sat by Pulse 93 99 Oximetry O2 Sat by Pulse Oximetry [ Assessment] Constitutional: alert, other (on vent trach in place) Eyes: non-icteric ENT: oropharynx moist Neck: other (trach in place) Ascultation: Bilateral: clear Percussion: Bilateral: not dull Cardiovascular: regular rate and rhythm Gastrointestinal: normoactive bowel sounds, soft Integumentary: other (subq emphysema) Extremities: no edema, other (subq emphysema) Neurologic: normal mental status CBC and BMP: 07/04/21 05:13 07/04/21 05:13 ABG, PT/INR, D-dimer: ABG ABG pH 7.488 pH Units (7.350-7.450) H 07/02/21 10:18 POC ABG pCO2 25.6 mmHg (32.0-48.0) L 06/13/21 04:31 ABG pCO2 36.5 mm Hg 07/02/21 10:18 POC ABG pO2 138.8 mmHg (83-108) H 06/13/21 04:31 ABG pO2 97.2 mm Hg (80.0-90.0) H 07/02/21 10:18 POC ABG HCO3 21.4 06/13/21 04:31 ABG O2 Saturation 97.7 % (95.0-99.0) 07/02/21 10:18 PT/INR, D-dimer PT 18.3 Sec. (12.2-14.9) H 06/20/21 04:33 INR 1.37 (0.87-1.13) H 06/20/21 04:33 D-Dimer 1244.63 ng/mlDDU (0-234) H 06/13/21 Unknown Abnormal lab findings: Abnormal Labs 06/11/21 06/11/21 06/11/21 15:23 15:23 19:20 WBC 12.0 H RBC Hgb Hct MCV 72 L MCH 21 L RDW 17.5 H Plt Count Lymph % (Auto) 12.9 L [place] % (Auto) 8.6 H Lymph # (Auto) [place] # (Auto) 1.0 H Seg Neutrophils % 77.4 H Seg Neuts % (Manual) Lymphocytes % (Manual) Monocytes % (Manual) Seg Neutrophils # 9.3 H Seg Neutrophils # Man Lymphocytes # (Manual) Monocytes # (Manual) PT INR APTT Fibrinogen D-Dimer ABG pH POC ABG pCO2 POC ABG pO2 ABG pO2 ABG HCO3 ABG O2 Saturation ABG Base Excess ABG Hemoglobin ABG Oxyhemoglobin Oxyhemoglobin Sodium Potassium Chloride Carbon Dioxide BUN Creatinine Glucose 144 H POC Glucose Lactic Acid Calcium Phosphorus Magnesium AST ALT Alkaline Phosphatase C-Reactive Protein Total Protein Albumin Triglycerides Ur Specific [place] Urine Creatinine Crossmatch See Detail 06/11/21 06/11/21 06/11/21 19:29 19:29 23:21 WBC 15.8 H RBC Hgb 9.4 L Hct MCV 72 L MCH 22 L RDW 17.4 H Plt Count Lymph % (Auto) 9.2 L [place] % (Auto) Lymph # (Auto) [place] # (Auto) Seg Neutrophils % 89.0 H Seg Neuts % (Manual) Lymphocytes % (Manual) Monocytes % (Manual) Seg Neutrophils # 14.0 H Seg Neutrophils # Man Lymphocytes # (Manual) Monocytes # (Manual) PT 72.9 H INR 8.18 H* APTT 71.7 H* Fibrinogen D-Dimer ABG pH POC ABG pCO2 POC ABG pO2 ABG pO2 ABG HCO3 ABG O2 Saturation ABG Base Excess ABG Hemoglobin ABG Oxyhemoglobin Oxyhemoglobin Sodium 149 H D Potassium Chloride 124.3 H Carbon Dioxide 8 L* D BUN Creatinine 0.3 L Glucose 628 H* POC Glucose Lactic Acid Calcium 2.4 L* D Phosphorus Magnesium AST ALT < 5 L Alkaline Phosphatase 19 L C-Reactive Protein Total Protein 1.6 L D Albumin 0.8 L Triglycerides Ur Specific [place] Urine Creatinine Crossmatch 06/11/21 06/11/21 06/11/21 23:21 23:22 23:42 WBC RBC Hgb Hct MCV MCH 27 L RDW 22.2 H Plt Count 131 L Lymph % (Auto) [place] % (Auto) Lymph # (Auto) [place] # (Auto) Seg Neutrophils % Seg Neuts % (Manual) Lymphocytes % (Manual) Monocytes % (Manual) Seg Neutrophils # Seg Neutrophils # Man Lymphocytes # (Manual) Monocytes # (Manual) PT 46.3 H INR 4.55 H APTT 54.8 H Fibrinogen D-Dimer ABG pH POC ABG pCO2 POC ABG pO2 325.9 H ABG pO2 ABG HCO3 ABG O2 Saturation ABG Base Excess ABG Hemoglobin 8.0 L ABG Oxyhemoglobin 99.0 H Oxyhemoglobin Sodium Potassium Chloride Carbon Dioxide BUN Creatinine Glucose POC Glucose Lactic Acid Calcium Phosphorus Magnesium AST ALT Alkaline Phosphatase C-Reactive Protein Total Protein Albumin Triglycerides Ur Specific [place] Urine Creatinine Crossmatch 06/12/21 06/12/21 06/12/21 01:45 01:45 01:45 WBC 21.6 H RBC 3.04 L Hgb 6.7 L D Hct 22.4 L D MCV 74 L MCH 22 L RDW 18.9 H Plt Count Lymph % (Auto) [place] % (Auto) Lymph # (Auto) [place] # (Auto) Seg Neutrophils % Seg Neuts % (Manual) 76.0 H Lymphocytes % (Manual) 2.0 L Monocytes % (Manual) 8.0 H Seg Neutrophils # Seg Neutrophils # Man 16.4 H Lymphocytes # (Manual) 0.4 L Monocytes # (Manual) 1.7 H PT 25.4 H INR 2.10 H APTT Fibrinogen D-Dimer ABG pH POC ABG pCO2 POC ABG pO2 ABG pO2 ABG HCO3 ABG O2 Saturation ABG Base Excess ABG Hemoglobin ABG Oxyhemoglobin Oxyhemoglobin Sodium Potassium 5.6 H D Chloride Carbon Dioxide 20 L D BUN Creatinine Glucose 368 H POC Glucose Lactic Acid Calcium 7.1 L D Phosphorus Magnesium AST ALT Alkaline Phosphatase C-Reactive Protein Total Protein 5.3 L D Albumin 3.1 L Triglycerides Ur Specific [place] Urine Creatinine Crossmatch 06/12/21 06/12/21 06/12/21 02:05 04:41 11:05 WBC 14.6 H RBC 3.52 L Hgb 8.5 L Hct 27.7 L MCV MCH 24 L RDW 20.9 H Plt Count Lymph % (Auto) [place] % (Auto) Lymph # (Auto) [place] # (Auto) Seg Neutrophils % Seg Neuts % (Manual) Lymphocytes % (Manual) Monocytes % (Manual) Seg Neutrophils # Seg Neutrophils # Man Lymphocytes # (Manual) Monocytes # (Manual) PT INR APTT Fibrinogen D-Dimer ABG pH POC ABG pCO2 POC ABG pO2 224.6 H ABG pO2 ABG HCO3 ABG O2 Saturation ABG Base Excess ABG Hemoglobin 7.3 L ABG Oxyhemoglobin 98.7 H Oxyhemoglobin Sodium Potassium Chloride Carbon Dioxide BUN Creatinine Glucose POC Glucose 308 H Lactic Acid Calcium Phosphorus Magnesium AST ALT Alkaline Phosphatase C-Reactive Protein Total Protein Albumin Triglycerides Ur Specific [place] Urine Creatinine Crossmatch 06/12/21 06/12/21 06/12/21 11:05 11:05 12:18 WBC RBC Hgb Hct MCV MCH RDW Plt Count Lymph % (Auto) [place] % (Auto) Lymph # (Auto) [place] # (Auto) Seg Neutrophils % Seg Neuts % (Manual) Lymphocytes % (Manual) Monocytes % (Manual) Seg Neutrophils # Seg Neutrophils # Man Lymphocytes # (Manual) Monocytes # (Manual) PT 16.8 H INR 1.23 H APTT Fibrinogen D-Dimer ABG pH POC ABG pCO2 POC ABG pO2 ABG pO2 ABG HCO3 ABG O2 Saturation ABG Base Excess ABG Hemoglobin ABG Oxyhemoglobin Oxyhemoglobin Sodium Potassium Chloride Carbon Dioxide BUN 24 H Creatinine Glucose 324 H POC Glucose 281 H Lactic Acid Calcium 7.5 L Phosphorus Magnesium AST 70 H ALT 57 H Alkaline Phosphatase C-Reactive Protein Total Protein 6.0 L Albumin 3.6 L Triglycerides Ur Specific [place] Urine Creatinine Crossmatch 06/12/21 06/12/21 06/12/21 17:00 17:00 17:00 WBC RBC Hgb 7.5 L Hct 24.0 L MCV MCH RDW Plt Count Lymph % (Auto) [place] % (Auto) Lymph # (Auto) [place] # (Auto) Seg Neutrophils % Seg Neuts % (Manual) Lymphocytes % (Manual) Monocytes % (Manual) Seg Neutrophils # Seg Neutrophils # Man Lymphocytes # (Manual) Monocytes # (Manual) PT 16.0 H INR 1.16 H APTT Fibrinogen D-Dimer ABG pH POC ABG pCO2 POC ABG pO2 ABG pO2 ABG HCO3 ABG O2 Saturation ABG Base Excess ABG Hemoglobin ABG Oxyhemoglobin Oxyhemoglobin Sodium Potassium Chloride Carbon Dioxide BUN Creatinine Glucose POC Glucose Lactic Acid Calcium Phosphorus Magnesium AST ALT Alkaline Phosphatase C-Reactive Protein Total Protein Albumin Triglycerides Ur Specific [place] 1.035 H Urine Creatinine Crossmatch 06/12/21 06/12/21 06/12/21 18:06 23:00 23:05 WBC RBC Hgb 7.6 L Hct 23.5 L MCV MCH RDW Plt Count Lymph % (Auto) [place] % (Auto) Lymph # (Auto) [place] # (Auto) Seg Neutrophils % Seg Neuts % (Manual) Lymphocytes % (Manual) Monocytes % (Manual) Seg Neutrophils # Seg Neutrophils # Man Lymphocytes # (Manual) Monocytes # (Manual) PT INR APTT Fibrinogen D-Dimer ABG pH POC ABG pCO2 POC ABG pO2 ABG pO2 ABG HCO3 ABG O2 Saturation ABG Base Excess ABG Hemoglobin ABG Oxyhemoglobin Oxyhemoglobin Sodium Potassium Chloride Carbon Dioxide BUN Creatinine Glucose POC Glucose 257 H 300 H Lactic Acid Calcium Phosphorus Magnesium AST ALT Alkaline Phosphatase C-Reactive Protein Total Protein Albumin Triglycerides Ur Specific [place] Urine Creatinine Crossmatch 06/13/21 06/13/21 06/13/21 04:31 05:19 07:30 WBC RBC Hgb 6.8 L Hct 21.7 L MCV MCH RDW Plt Count Lymph % (Auto) [place] % (Auto) Lymph # (Auto) [place] # (Auto) Seg Neutrophils % Seg Neuts % (Manual) Lymphocytes % (Manual) Monocytes % (Manual) Seg Neutrophils # Seg Neutrophils # Man Lymphocytes # (Manual) Monocytes # (Manual) PT INR APTT Fibrinogen D-Dimer ABG pH 7.541 H POC ABG pCO2 25.6 L POC ABG pO2 138.8 H ABG pO2 ABG HCO3 ABG O2 Saturation ABG Base Excess ABG Hemoglobin 7.3 L ABG Oxyhemoglobin 98.1 H Oxyhemoglobin Sodium Potassium Chloride Carbon Dioxide BUN Creatinine Glucose POC Glucose 286 H Lactic Acid Calcium Phosphorus Magnesium AST ALT Alkaline Phosphatase C-Reactive Protein Total Protein Albumin Triglycerides Ur Specific [place] Urine Creatinine Crossmatch 06/13/21 06/13/21 06/13/21 07:30 12:04 14:50 WBC RBC Hgb Hct MCV MCH RDW Plt Count Lymph % (Auto) [place] % (Auto) Lymph # (Auto) [place] # (Auto) Seg Neutrophils % Seg Neuts % (Manual) Lymphocytes % (Manual) Monocytes % (Manual) Seg Neutrophils # Seg Neutrophils # Man Lymphocytes # (Manual) Monocytes # (Manual) PT INR APTT Fibrinogen D-Dimer ABG pH 7.039 L* 7.182 L* POC ABG pCO2 POC ABG pO2 ABG pO2 63.1 L ABG HCO3 17.4 L ABG O2 Saturation 73.4 L ABG Base Excess -12.6 L -7.1 L ABG Hemoglobin 7.7 L 6.9 L ABG Oxyhemoglobin Oxyhemoglobin 71.8 L 93.5 L Sodium Potassium Chloride 108.9 H Carbon Dioxide BUN 28 H Creatinine Glucose 293 H POC Glucose Lactic Acid Calcium 7.2 L Phosphorus Magnesium AST 106 H ALT 92 H Alkaline Phosphatase C-Reactive Protein Total Protein 5.6 L Albumin 3.3 L Triglycerides Ur Specific [place] Urine Creatinine Crossmatch 06/13/21 06/13/21 06/13/21 14:54 15:45 17:34 WBC RBC Hgb Hct MCV MCH RDW Plt Count Lymph % (Auto) [place] % (Auto) Lymph # (Auto) [place] # (Auto) Seg Neutrophils % Seg Neuts % (Manual) Lymphocytes % (Manual) Monocytes % (Manual) Seg Neutrophils # Seg Neutrophils # Man Lymphocytes # (Manual) Monocytes # (Manual) PT INR APTT Fibrinogen D-Dimer ABG pH POC ABG pCO2 POC ABG pO2 ABG pO2 178.4 H ABG HCO3 ABG O2 Saturation 99.1 H ABG Base Excess ABG Hemoglobin 8.0 L ABG Oxyhemoglobin Oxyhemoglobin Sodium Potassium Chloride 107.3 H Carbon Dioxide 19 L BUN 33 H Creatinine 1.5 H Glucose 379 H POC Glucose Lactic Acid 5.30 H* Calcium 6.8 L Phosphorus Magnesium AST ALT Alkaline Phosphatase C-Reactive Protein Total Protein Albumin Triglycerides Ur Specific [place] Urine Creatinine Crossmatch 06/13/21 06/13/21 06/13/21 17:40 23:29 Unknown WBC 22.5 H RBC 3.16 L Hgb 8.0 L Hct 26.0 L MCV MCH 26 L RDW 21.4 H Plt Count Lymph % (Auto) [place] % (Auto) Lymph # (Auto) [place] # (Auto) Seg Neutrophils % Seg Neuts % (Manual) 88.0 H Lymphocytes % (Manual) 4.0 L Monocytes % (Manual) Seg Neutrophils # Seg Neutrophils # Man 19.8 H Lymphocytes # (Manual) 0.9 L Monocytes # (Manual) 1.4 H PT INR APTT Fibrinogen D-Dimer ABG pH POC ABG pCO2 POC ABG pO2 ABG pO2 ABG HCO3 ABG O2 Saturation ABG Base Excess ABG Hemoglobin ABG Oxyhemoglobin Oxyhemoglobin Sodium Potassium Chloride Carbon Dioxide BUN Creatinine Glucose POC Glucose 294 H 288 H Lactic Acid Calcium Phosphorus Magnesium AST ALT Alkaline Phosphatase C-Reactive Protein Total Protein Albumin Triglycerides Ur Specific [place] Urine Creatinine Crossmatch 06/13/21 06/14/21 06/14/21 Unknown 05:39 06:15 WBC RBC 2.93 L Hgb 7.2 L Hct 23.2 L MCV MCH 25 L RDW 21.2 H Plt Count Lymph % (Auto) [place] % (Auto) Lymph # (Auto) [place] # (Auto) Seg Neutrophils % Seg Neuts % (Manual) Lymphocytes % (Manual) Monocytes % (Manual) Seg Neutrophils # Seg Neutrophils # Man Lymphocytes # (Manual) Monocytes # (Manual) PT 17.6 H INR 1.31 H APTT Fibrinogen 546 H D-Dimer 1244.63 H ABG pH POC ABG pCO2 POC ABG pO2 ABG pO2 ABG HCO3 ABG O2 Saturation ABG Base Excess ABG Hemoglobin ABG Oxyhemoglobin Oxyhemoglobin Sodium Potassium Chloride Carbon Dioxide BUN Creatinine Glucose POC Glucose 246 H Lactic Acid Calcium Phosphorus Magnesium AST ALT Alkaline Phosphatase C-Reactive Protein Total Protein Albumin Triglycerides Ur Specific [place] Urine Creatinine Crossmatch 06/14/21 06/14/21 06/14/21 06:15 06:15 09:13 WBC RBC Hgb Hct MCV MCH RDW Plt Count Lymph % (Auto) [place] % (Auto) Lymph # (Auto) [place] # (Auto) Seg Neutrophils % Seg Neuts % (Manual) Lymphocytes % (Manual) Monocytes % (Manual) Seg Neutrophils # Seg Neutrophils # Man Lymphocytes # (Manual) Monocytes # (Manual) PT INR APTT Fibrinogen D-Dimer ABG pH POC ABG pCO2 POC ABG pO2 ABG pO2 183.0 H ABG HCO3 ABG O2 Saturation 99.2 H ABG Base Excess ABG Hemoglobin 6.6 L ABG Oxyhemoglobin Oxyhemoglobin Sodium 147 H Potassium Chloride 112.5 H Carbon Dioxide 21 L BUN 36 H Creatinine 1.4 H Glucose 281 H POC Glucose Lactic Acid Calcium 6.9 L Phosphorus Magnesium AST ALT Alkaline Phosphatase C-Reactive Protein Total Protein Albumin Triglycerides 189 H Ur Specific [place] Urine Creatinine Crossmatch 06/14/21 06/14/21 06/14/21 10:45 12:16 13:30 WBC RBC Hgb 7.1 L Hct 22.3 L MCV MCH RDW Plt Count Lymph % (Auto) [place] % (Auto) Lymph # (Auto) [place] # (Auto) Seg Neutrophils % Seg Neuts % (Manual) Lymphocytes % (Manual) Monocytes % (Manual) Seg Neutrophils # Seg Neutrophils # Man Lymphocytes # (Manual) Monocytes # (Manual) PT INR APTT Fibrinogen D-Dimer ABG pH 7.205 L POC ABG pCO2 POC ABG pO2 ABG pO2 261.3 H ABG HCO3 ABG O2 Saturation 99.4 H ABG Base Excess -7.2 L ABG Hemoglobin 7.6 L ABG Oxyhemoglobin Oxyhemoglobin Sodium Potassium Chloride Carbon Dioxide BUN Creatinine Glucose POC Glucose 174 H Lactic Acid Calcium Phosphorus Magnesium AST ALT Alkaline Phosphatase C-Reactive Protein Total Protein Albumin Triglycerides Ur Specific [place] Urine Creatinine Crossmatch 06/14/21 06/14/21 06/15/21 17:40 18:43 00:06 WBC RBC Hgb Hct MCV MCH RDW Plt Count Lymph % (Auto) [place] % (Auto) Lymph # (Auto) [place] # (Auto) Seg Neutrophils % Seg Neuts % (Manual) Lymphocytes % (Manual) Monocytes % (Manual) Seg Neutrophils # Seg Neutrophils # Man Lymphocytes # (Manual) Monocytes # (Manual) PT INR APTT Fibrinogen D-Dimer ABG pH 7.292 L POC ABG pCO2 POC ABG pO2 ABG pO2 78.8 L ABG HCO3 ABG O2 Saturation ABG Base Excess -5.0 L ABG Hemoglobin 9.1 L ABG Oxyhemoglobin Oxyhemoglobin 93.7 L Sodium Potassium Chloride Carbon Dioxide BUN Creatinine Glucose POC Glucose 182 H 144 H Lactic Acid Calcium Phosphorus Magnesium AST ALT Alkaline Phosphatase C-Reactive Protein Total Protein Albumin Triglycerides Ur Specific [place] Urine Creatinine Crossmatch 06/15/21 06/15/21 06/15/21 03:55 03:56 10:40 WBC RBC Hgb 8.4 L Hct 25.8 L MCV MCH RDW Plt Count Lymph % (Auto) [place] % (Auto) Lymph # (Auto) [place] # (Auto) Seg Neutrophils % Seg Neuts % (Manual) Lymphocytes % (Manual) Monocytes % (Manual) Seg Neutrophils # Seg Neutrophils # Man Lymphocytes # (Manual) Monocytes # (Manual) PT INR APTT Fibrinogen D-Dimer ABG pH POC ABG pCO2 POC ABG pO2 ABG pO2 ABG HCO3 ABG O2 Saturation ABG Base Excess ABG Hemoglobin ABG Oxyhemoglobin Oxyhemoglobin Sodium 147 H Potassium Chloride 112.2 H Carbon Dioxide 21 L BUN 47 H Creatinine 1.9 H Glucose 272 H POC Glucose Lactic Acid Calcium 7.3 L Phosphorus Magnesium AST 64 H ALT 106 H Alkaline Phosphatase C-Reactive Protein Total Protein 5.1 L Albumin 2.9 L Triglycerides Ur Specific [place] Urine Creatinine 81.1 H Crossmatch 06/15/21 06/15/21 06/15/21 11:46 17:16 23:17 WBC RBC Hgb Hct MCV MCH RDW Plt Count Lymph % (Auto) [place] % (Auto) Lymph # (Auto) [place] # (Auto) Seg Neutrophils % Seg Neuts % (Manual) Lymphocytes % (Manual) Monocytes % (Manual) Seg Neutrophils # Seg Neutrophils # Man Lymphocytes # (Manual) Monocytes # (Manual) PT INR APTT Fibrinogen D-Dimer ABG pH POC ABG pCO2 POC ABG pO2 ABG pO2 ABG HCO3 ABG O2 Saturation ABG Base Excess ABG Hemoglobin ABG Oxyhemoglobin Oxyhemoglobin Sodium Potassium Chloride Carbon Dioxide BUN Creatinine Glucose POC Glucose 271 H 268 H 264 H Lactic Acid Calcium Phosphorus Magnesium AST ALT Alkaline Phosphatase C-Reactive Protein Total Protein Albumin Triglycerides Ur Specific [place] Urine Creatinine Crossmatch 06/15/21 06/15/21 06/16/21 Unknown Unknown 04:32 WBC RBC 3.21 L 3.16 L Hgb 8.4 L 8.2 L Hct 26.1 L 25.4 L MCV MCH 26 L 26 L RDW 21.3 H 21.2 H Plt Count 105 L 118 L Lymph % (Auto) [place] % (Auto) Lymph # (Auto) [place] # (Auto) Seg Neutrophils % Seg Neuts % (Manual) Lymphocytes % (Manual) Monocytes % (Manual) Seg Neutrophils # Seg Neutrophils # Man Lymphocytes # (Manual) Monocytes # (Manual) PT INR APTT Fibrinogen D-Dimer ABG pH 7.465 H POC ABG pCO2 POC ABG pO2 ABG pO2 114.1 H ABG HCO3 ABG O2 Saturation ABG Base Excess ABG Hemoglobin 8.4 L ABG Oxyhemoglobin Oxyhemoglobin Sodium Potassium Chloride Carbon Dioxide BUN Creatinine Glucose POC Glucose Lactic Acid Calcium Phosphorus Magnesium AST ALT Alkaline Phosphatase C-Reactive Protein Total Protein Albumin Triglycerides Ur Specific [place] Urine Creatinine Crossmatch 06/16/21 06/16/21 06/16/21 04:32 04:32 05:08 WBC RBC Hgb Hct MCV MCH RDW Plt Count Lymph % (Auto) [place] % (Auto) Lymph # (Auto) [place] # (Auto) Seg Neutrophils % Seg Neuts % (Manual) Lymphocytes % (Manual) Monocytes % (Manual) Seg Neutrophils # Seg Neutrophils # Man Lymphocytes # (Manual) Monocytes # (Manual) PT INR APTT Fibrinogen D-Dimer ABG pH POC ABG pCO2 POC ABG pO2 ABG pO2 ABG HCO3 ABG O2 Saturation ABG Base Excess ABG Hemoglobin ABG Oxyhemoglobin Oxyhemoglobin Sodium 148 H Potassium 3.3 L Chloride 115.1 H Carbon Dioxide 21 L BUN 54 H Creatinine 1.6 H Glucose 367 H POC Glucose 356 H Lactic Acid Calcium 7.4 L Phosphorus Magnesium AST ALT Alkaline Phosphatase C-Reactive Protein 3.30 H Total Protein Albumin Triglycerides Ur Specific [place] Urine Creatinine Crossmatch 06/16/21 06/16/21 06/16/21 05:30 11:46 17:03 WBC RBC Hgb Hct MCV MCH RDW Plt Count Lymph % (Auto) [place] % (Auto) Lymph # (Auto) [place] # (Auto) Seg Neutrophils % Seg Neuts % (Manual) Lymphocytes % (Manual) Monocytes % (Manual) Seg Neutrophils # Seg Neutrophils # Man Lymphocytes # (Manual) Monocytes # (Manual) PT INR APTT Fibrinogen D-Dimer ABG pH 7.475 H POC ABG pCO2 POC ABG pO2 ABG pO2 171.8 H ABG HCO3 ABG O2 Saturation 99.1 H ABG Base Excess ABG Hemoglobin 11.7 L ABG Oxyhemoglobin Oxyhemoglobin Sodium Potassium Chloride Carbon Dioxide BUN Creatinine Glucose POC Glucose 309 H 345 H Lactic Acid Calcium Phosphorus Magnesium AST ALT Alkaline Phosphatase C-Reactive Protein Total Protein Albumin Triglycerides Ur Specific [place] Urine Creatinine Crossmatch 06/16/21 06/16/21 06/17/21 20:18 23:22 04:50 WBC RBC Hgb Hct MCV MCH RDW Plt Count Lymph % (Auto) [place] % (Auto) Lymph # (Auto) [place] # (Auto) Seg Neutrophils % Seg Neuts % (Manual) Lymphocytes % (Manual) Monocytes % (Manual) Seg Neutrophils # Seg Neutrophils # Man Lymphocytes # (Manual) Monocytes # (Manual) PT INR APTT Fibrinogen D-Dimer ABG pH 7.479 H POC ABG pCO2 POC ABG pO2 ABG pO2 143.1 H ABG HCO3 ABG O2 Saturation ABG Base Excess ABG Hemoglobin 10.0 L ABG Oxyhemoglobin Oxyhemoglobin Sodium Potassium Chloride Carbon Dioxide BUN Creatinine Glucose POC Glucose 325 H 315 H Lactic Acid Calcium Phosphorus Magnesium AST ALT Alkaline Phosphatase C-Reactive Protein Total Protein Albumin Triglycerides Ur Specific [place] Urine Creatinine Crossmatch 06/17/21 06/17/21 06/17/21 05:18 05:30 05:30 WBC RBC 3.17 L Hgb 8.2 L Hct 25.5 L MCV MCH 26 L RDW 21.2 H Plt Count 128 L Lymph % (Auto) [place] % (Auto) Lymph # (Auto) [place] # (Auto) Seg Neutrophils % Seg Neuts % (Manual) Lymphocytes % (Manual) Monocytes % (Manual) Seg Neutrophils # Seg Neutrophils # Man Lymphocytes # (Manual) Monocytes # (Manual) PT INR APTT Fibrinogen D-Dimer ABG pH POC ABG pCO2 POC ABG pO2 ABG pO2 ABG HCO3 ABG O2 Saturation ABG Base Excess ABG Hemoglobin ABG Oxyhemoglobin Oxyhemoglobin Sodium 148 H Potassium Chloride 113.7 H Carbon Dioxide 20 L BUN 57 H Creatinine 1.4 H Glucose 351 H POC Glucose 324 H Lactic Acid Calcium 8.0 L Phosphorus 2.30 L Magnesium AST ALT Alkaline Phosphatase C-Reactive Protein Total Protein Albumin Triglycerides Ur Specific [place] Urine Creatinine Crossmatch 06/17/21 06/17/21 06/17/21 11:49 17:43 21:42 WBC RBC Hgb Hct MCV MCH RDW Plt Count Lymph % (Auto) [place] % (Auto) Lymph # (Auto) [place] # (Auto) Seg Neutrophils % Seg Neuts % (Manual) Lymphocytes % (Manual) Monocytes % (Manual) Seg Neutrophils # Seg Neutrophils # Man Lymphocytes # (Manual) Monocytes # (Manual) PT INR APTT Fibrinogen D-Dimer ABG pH POC ABG pCO2 POC ABG pO2 ABG pO2 ABG HCO3 ABG O2 Saturation ABG Base Excess ABG Hemoglobin ABG Oxyhemoglobin Oxyhemoglobin Sodium Potassium Chloride Carbon Dioxide BUN Creatinine Glucose POC Glucose 305 H 307 H 286 H Lactic Acid Calcium Phosphorus Magnesium AST ALT Alkaline Phosphatase C-Reactive Protein Total Protein Albumin Triglycerides Ur Specific [place] Urine Creatinine Crossmatch 06/17/21 06/18/21 06/18/21 23:59 04:20 04:37 WBC RBC 3.53 L Hgb 9.1 L Hct 28.7 L MCV MCH 26 L RDW 21.3 H Plt Count Lymph % (Auto) [place] % (Auto) Lymph # (Auto) [place] # (Auto) Seg Neutrophils % Seg Neuts % (Manual) Lymphocytes % (Manual) Monocytes % (Manual) Seg Neutrophils # Seg Neutrophils # Man Lymphocytes # (Manual) Monocytes # (Manual) PT INR APTT Fibrinogen D-Dimer ABG pH 7.495 H POC ABG pCO2 POC ABG pO2 ABG pO2 108.3 H ABG HCO3 ABG O2 Saturation ABG Base Excess -2.1 L ABG Hemoglobin 10.0 L ABG Oxyhemoglobin Oxyhemoglobin Sodium Potassium Chloride Carbon Dioxide BUN Creatinine Glucose POC Glucose 264 H Lactic Acid Calcium Phosphorus Magnesium AST ALT Alkaline Phosphatase C-Reactive Protein Total Protein Albumin Triglycerides Ur Specific [place] Urine Creatinine Crossmatch 06/18/21 06/18/21 06/18/21 04:37 05:32 11:21 WBC RBC Hgb Hct MCV MCH RDW Plt Count Lymph % (Auto) [place] % (Auto) Lymph # (Auto) [place] # (Auto) Seg Neutrophils % Seg Neuts % (Manual) Lymphocytes % (Manual) Monocytes % (Manual) Seg Neutrophils # Seg Neutrophils # Man Lymphocytes # (Manual) Monocytes # (Manual) PT INR APTT Fibrinogen D-Dimer ABG pH POC ABG pCO2 POC ABG pO2 ABG pO2 ABG HCO3 ABG O2 Saturation ABG Base Excess ABG Hemoglobin ABG Oxyhemoglobin Oxyhemoglobin Sodium 148 H Potassium Chloride 114.7 H Carbon Dioxide BUN 59 H Creatinine 1.3 H Glucose 329 H POC Glucose 293 H 291 H Lactic Acid Calcium 8.1 L Phosphorus Magnesium AST ALT Alkaline Phosphatase C-Reactive Protein Total Protein Albumin Triglycerides Ur Specific [place] Urine Creatinine Crossmatch 06/18/21 06/18/21 06/19/21 18:21 21:46 00:15 WBC RBC Hgb Hct MCV MCH RDW Plt Count Lymph % (Auto) [place] % (Auto) Lymph # (Auto) [place] # (Auto) Seg Neutrophils % Seg Neuts % (Manual) Lymphocytes % (Manual) Monocytes % (Manual) Seg Neutrophils # Seg Neutrophils # Man Lymphocytes # (Manual) Monocytes # (Manual) PT INR APTT Fibrinogen D-Dimer ABG pH POC ABG pCO2 POC ABG pO2 ABG pO2 ABG HCO3 ABG O2 Saturation ABG Base Excess ABG Hemoglobin ABG Oxyhemoglobin Oxyhemoglobin Sodium Potassium Chloride Carbon Dioxide BUN Creatinine Glucose POC Glucose 239 H 259 H 310 H Lactic Acid Calcium Phosphorus Magnesium AST ALT Alkaline Phosphatase C-Reactive Protein Total Protein Albumin Triglycerides Ur Specific [place] Urine Creatinine Crossmatch 06/19/21 06/19/21 06/19/21 04:00 04:00 04:50 WBC RBC 3.64 L Hgb 9.1 L Hct 29.1 L MCV MCH 25 L RDW 21.5 H Plt Count Lymph % (Auto) [place] % (Auto) Lymph # (Auto) [place] # (Auto) Seg Neutrophils % Seg Neuts % (Manual) Lymphocytes % (Manual) Monocytes % (Manual) Seg Neutrophils # Seg Neutrophils # Man Lymphocytes # (Manual) Monocytes # (Manual) PT INR APTT Fibrinogen D-Dimer ABG pH POC ABG pCO2 POC ABG pO2 ABG pO2 78.9 L ABG HCO3 ABG O2 Saturation ABG Base Excess -3.2 L ABG Hemoglobin 7.6 L ABG Oxyhemoglobin Oxyhemoglobin Sodium 148 H Potassium Chloride 114.9 H Carbon Dioxide 19 L BUN 59 H Creatinine Glucose 345 H POC Glucose Lactic Acid Calcium 8.1 L Phosphorus 4.60 H D Magnesium 2.40 H AST ALT Alkaline Phosphatase C-Reactive Protein Total Protein Albumin Triglycerides Ur Specific [place] Urine Creatinine Crossmatch 06/19/21 06/19/21 06/19/21 06:28 11:11 17:20 WBC RBC Hgb Hct MCV MCH RDW Plt Count Lymph % (Auto) [place] % (Auto) Lymph # (Auto) [place] # (Auto) Seg Neutrophils % Seg Neuts % (Manual) Lymphocytes % (Manual) Monocytes % (Manual) Seg Neutrophils # Seg Neutrophils # Man Lymphocytes # (Manual) Monocytes # (Manual) PT 29.7 H INR 2.57 H APTT Fibrinogen D-Dimer ABG pH POC ABG pCO2 POC ABG pO2 ABG pO2 ABG HCO3 ABG O2 Saturation ABG Base Excess ABG Hemoglobin ABG Oxyhemoglobin Oxyhemoglobin Sodium Potassium Chloride Carbon Dioxide BUN Creatinine Glucose POC Glucose 279 H 275 H Lactic Acid Calcium Phosphorus Magnesium AST ALT Alkaline Phosphatase C-Reactive Protein Total Protein Albumin Triglycerides Ur Specific [place] Urine Creatinine Crossmatch 06/19/21 06/19/21 06/19/21 18:30 19:20 23:27 WBC RBC Hgb 8.0 L Hct 25.0 L MCV MCH RDW Plt Count Lymph % (Auto) [place] % (Auto) Lymph # (Auto) [place] # (Auto) Seg Neutrophils % Seg Neuts % (Manual) Lymphocytes % (Manual) Monocytes % (Manual) Seg Neutrophils # Seg Neutrophils # Man Lymphocytes # (Manual) Monocytes # (Manual) PT INR APTT Fibrinogen D-Dimer ABG pH POC ABG pCO2 POC ABG pO2 ABG pO2 ABG HCO3 ABG O2 Saturation ABG Base Excess ABG Hemoglobin ABG Oxyhemoglobin Oxyhemoglobin Sodium Potassium Chloride Carbon Dioxide BUN Creatinine Glucose POC Glucose 279 H 290 H Lactic Acid Calcium Phosphorus Magnesium AST ALT Alkaline Phosphatase C-Reactive Protein Total Protein Albumin Triglycerides Ur Specific [place] Urine Creatinine Crossmatch 06/20/21 06/20/21 06/20/21 00:00 04:33 04:33 WBC 22.3 H RBC 3.31 L Hgb 7.4 L 8.5 L Hct 22.5 L 26.5 L MCV MCH 26 L RDW 21.5 H Plt Count Lymph % (Auto) [place] % (Auto) Lymph # (Auto) [place] # (Auto) Seg Neutrophils % Seg Neuts % (Manual) Lymphocytes % (Manual) Monocytes % (Manual) Seg Neutrophils # Seg Neutrophils # Man Lymphocytes # (Manual) Monocytes # (Manual) PT INR APTT Fibrinogen D-Dimer ABG pH POC ABG pCO2 POC ABG pO2 ABG pO2 ABG HCO3 ABG O2 Saturation ABG Base Excess ABG Hemoglobin ABG Oxyhemoglobin Oxyhemoglobin Sodium 148 H Potassium Chloride 114.2 H Carbon Dioxide BUN 70 H Creatinine 1.4 H Glucose 313 H POC Glucose Lactic Acid Calcium 8.2 L Phosphorus Magnesium 2.50 H AST ALT Alkaline Phosphatase C-Reactive Protein Total Protein Albumin Triglycerides Ur Specific [place] Urine Creatinine Crossmatch 06/20/21 06/20/21 06/20/21 04:33 05:27 11:21 WBC RBC Hgb Hct MCV MCH RDW Plt Count Lymph % (Auto) [place] % (Auto) Lymph # (Auto) [place] # (Auto) Seg Neutrophils % Seg Neuts % (Manual) Lymphocytes % (Manual) Monocytes % (Manual) Seg Neutrophils # Seg Neutrophils # Man Lymphocytes # (Manual) Monocytes # (Manual) PT 18.3 H INR 1.37 H APTT Fibrinogen D-Dimer ABG pH POC ABG pCO2 POC ABG pO2 ABG pO2 ABG HCO3 ABG O2 Saturation ABG Base Excess ABG Hemoglobin ABG Oxyhemoglobin Oxyhemoglobin Sodium Potassium Chloride Carbon Dioxide BUN Creatinine Glucose POC Glucose 288 H 306 H Lactic Acid Calcium Phosphorus Magnesium AST ALT Alkaline Phosphatase C-Reactive Protein Total Protein Albumin Triglycerides Ur Specific [place] Urine Creatinine Crossmatch 06/20/21 06/20/21 06/20/21 12:23 15:56 18:20 WBC RBC Hgb 8.2 L 8.1 L Hct 25.9 L 25.5 L MCV MCH RDW Plt Count Lymph % (Auto) [place] % (Auto) Lymph # (Auto) [place] # (Auto) Seg Neutrophils % Seg Neuts % (Manual) Lymphocytes % (Manual) Monocytes % (Manual) Seg Neutrophils # Seg Neutrophils # Man Lymphocytes # (Manual) Monocytes # (Manual) PT INR APTT Fibrinogen D-Dimer ABG pH POC ABG pCO2 POC ABG pO2 ABG pO2 ABG HCO3 ABG O2 Saturation ABG Base Excess ABG Hemoglobin ABG Oxyhemoglobin Oxyhemoglobin Sodium Potassium Chloride Carbon Dioxide BUN Creatinine Glucose POC Glucose 293 H Lactic Acid Calcium Phosphorus Magnesium AST ALT Alkaline Phosphatase C-Reactive Protein Total Protein Albumin Triglycerides Ur Specific [place] Urine Creatinine Crossmatch 06/20/21 06/21/21 06/21/21 23:11 04:20 04:42 WBC 15.1 H RBC 2.84 L Hgb 7.3 L Hct 23.1 L MCV MCH 26 L RDW 21.5 H Plt Count Lymph % (Auto) 3.5 L [place] % (Auto) 11.7 H Lymph # (Auto) 0.5 L [place] # (Auto) 1.8 H Seg Neutrophils % 84.7 H Seg Neuts % (Manual) Lymphocytes % (Manual) Monocytes % (Manual) Seg Neutrophils # 12.8 H Seg Neutrophils # Man Lymphocytes # (Manual) Monocytes # (Manual) PT INR APTT Fibrinogen D-Dimer ABG pH POC ABG pCO2 POC ABG pO2 ABG pO2 98.5 H ABG HCO3 ABG O2 Saturation ABG Base Excess ABG Hemoglobin 7.2 L ABG Oxyhemoglobin Oxyhemoglobin Sodium Potassium Chloride Carbon Dioxide BUN Creatinine Glucose POC Glucose 206 H Lactic Acid Calcium Phosphorus Magnesium AST ALT Alkaline Phosphatase C-Reactive Protein Total Protein Albumin Triglycerides Ur Specific [place] Urine Creatinine Crossmatch 06/21/21 06/21/21 06/21/21 04:42 05:08 11:06 WBC RBC Hgb Hct MCV MCH RDW Plt Count Lymph % (Auto) [place] % (Auto) Lymph # (Auto) [place] # (Auto) Seg Neutrophils % Seg Neuts % (Manual) Lymphocytes % (Manual) Monocytes % (Manual) Seg Neutrophils # Seg Neutrophils # Man Lymphocytes # (Manual) Monocytes # (Manual) PT INR APTT Fibrinogen D-Dimer ABG pH POC ABG pCO2 POC ABG pO2 ABG pO2 ABG HCO3 ABG O2 Saturation ABG Base Excess ABG Hemoglobin ABG Oxyhemoglobin Oxyhemoglobin Sodium 151 H Potassium Chloride 117.2 H Carbon Dioxide 21 L BUN 75 H Creatinine 1.6 H Glucose 216 H POC Glucose 190 H 204 H Lactic Acid Calcium 7.9 L Phosphorus Magnesium 2.60 H AST ALT Alkaline Phosphatase C-Reactive Protein Total Protein Albumin Triglycerides 254 H Ur Specific [place] Urine Creatinine Crossmatch 06/21/21 06/21/21 06/21/21 14:00 16:42 21:52 WBC RBC Hgb 7.1 L 7.2 L Hct 22.0 L 22.1 L MCV MCH RDW Plt Count Lymph % (Auto) [place] % (Auto) Lymph # (Auto) [place] # (Auto) Seg Neutrophils % Seg Neuts % (Manual) Lymphocytes % (Manual) Monocytes % (Manual) Seg Neutrophils # Seg Neutrophils # Man Lymphocytes # (Manual) Monocytes # (Manual) PT INR APTT Fibrinogen D-Dimer ABG pH POC ABG pCO2 POC ABG pO2 ABG pO2 ABG HCO3 ABG O2 Saturation ABG Base Excess ABG Hemoglobin ABG Oxyhemoglobin Oxyhemoglobin Sodium Potassium Chloride Carbon Dioxide BUN Creatinine Glucose POC Glucose 207 H Lactic Acid Calcium Phosphorus Magnesium AST ALT Alkaline Phosphatase C-Reactive Protein Total Protein Albumin Triglycerides Ur Specific [place] Urine Creatinine Crossmatch 06/21/21 06/22/21 06/22/21 23:29 04:30 04:30 WBC 16.8 H RBC 2.93 L Hgb 7.4 L Hct 23.9 L MCV MCH 25 L RDW 21.8 H Plt Count Lymph % (Auto) [place] % (Auto) Lymph # (Auto) [place] # (Auto) Seg Neutrophils % Seg Neuts % (Manual) Lymphocytes % (Manual) Monocytes % (Manual) Seg Neutrophils # Seg Neutrophils # Man Lymphocytes # (Manual) Monocytes # (Manual) PT INR APTT Fibrinogen D-Dimer ABG pH POC ABG pCO2 POC ABG pO2 ABG pO2 ABG HCO3 ABG O2 Saturation ABG Base Excess ABG Hemoglobin ABG Oxyhemoglobin Oxyhemoglobin Sodium 151 H Potassium Chloride 118.7 H Carbon Dioxide BUN 57 H Creatinine Glucose 238 H POC Glucose 273 H Lactic Acid Calcium 8.0 L Phosphorus Magnesium 2.70 H AST ALT Alkaline Phosphatase C-Reactive Protein Total Protein Albumin Triglycerides Ur Specific [place] Urine Creatinine Crossmatch 06/22/21 06/22/21 06/22/21 05:17 11:31 14:20 WBC RBC Hgb 7.4 L Hct 22.5 L MCV MCH RDW Plt Count Lymph % (Auto) [place] % (Auto) Lymph # (Auto) [place] # (Auto) Seg Neutrophils % Seg Neuts % (Manual) Lymphocytes % (Manual) Monocytes % (Manual) Seg Neutrophils # Seg Neutrophils # Man Lymphocytes # (Manual) Monocytes # (Manual) PT INR APTT Fibrinogen D-Dimer ABG pH POC ABG pCO2 POC ABG pO2 ABG pO2 ABG HCO3 ABG O2 Saturation ABG Base Excess ABG Hemoglobin ABG Oxyhemoglobin Oxyhemoglobin Sodium Potassium Chloride Carbon Dioxide BUN Creatinine Glucose POC Glucose 214 H 214 H Lactic Acid Calcium Phosphorus Magnesium AST ALT Alkaline Phosphatase C-Reactive Protein Total Protein Albumin Triglycerides Ur Specific [place] Urine Creatinine Crossmatch 06/22/21 06/22/21 06/23/21 17:18 23:47 05:33 WBC RBC Hgb Hct MCV MCH RDW Plt Count Lymph % (Auto) [place] % (Auto) Lymph # (Auto) [place] # (Auto) Seg Neutrophils % Seg Neuts % (Manual) Lymphocytes % (Manual) Monocytes % (Manual) Seg Neutrophils # Seg Neutrophils # Man Lymphocytes # (Manual) Monocytes # (Manual) PT INR APTT Fibrinogen D-Dimer ABG pH POC ABG pCO2 POC ABG pO2 ABG pO2 ABG HCO3 ABG O2 Saturation ABG Base Excess ABG Hemoglobin ABG Oxyhemoglobin Oxyhemoglobin Sodium Potassium Chloride Carbon Dioxide BUN Creatinine Glucose POC Glucose 238 H 227 H 202 H Lactic Acid Calcium Phosphorus Magnesium AST ALT Alkaline Phosphatase C-Reactive Protein Total Protein Albumin Triglycerides Ur Specific [place] Urine Creatinine Crossmatch 06/23/21 06/23/21 06/23/21 10:04 10:04 11:06 WBC 20.3 H RBC 2.71 L Hgb 7.3 L Hct 21.8 L MCV MCH 27 L RDW 22.1 H Plt Count Lymph % (Auto) [place] % (Auto) Lymph # (Auto) [place] # (Auto) Seg Neutrophils % Seg Neuts % (Manual) Lymphocytes % (Manual) Monocytes % (Manual) Seg Neutrophils # Seg Neutrophils # Man Lymphocytes # (Manual) Monocytes # (Manual) PT INR APTT Fibrinogen D-Dimer ABG pH POC ABG pCO2 POC ABG pO2 ABG pO2 ABG HCO3 ABG O2 Saturation ABG Base Excess ABG Hemoglobin ABG Oxyhemoglobin Oxyhemoglobin Sodium 151 H Potassium 3.2 L Chloride 116.9 H Carbon Dioxide BUN 40 H Creatinine Glucose 208 H POC Glucose 204 H Lactic Acid Calcium 8.0 L Phosphorus 1.80 L D Magnesium AST ALT Alkaline Phosphatase C-Reactive Protein Total Protein Albumin Triglycerides Ur Specific [place] Urine Creatinine Crossmatch 06/23/21 06/23/21 06/24/21 16:11 23:47 04:00 WBC 16.9 H RBC 2.49 L Hgb 6.6 L Hct 20.3 L MCV MCH 26 L RDW 22.6 H Plt Count Lymph % (Auto) [place] % (Auto) Lymph # (Auto) [place] # (Auto) Seg Neutrophils % Seg Neuts % (Manual) Lymphocytes % (Manual) Monocytes % (Manual) Seg Neutrophils # Seg Neutrophils # Man Lymphocytes # (Manual) Monocytes # (Manual) PT INR APTT Fibrinogen D-Dimer ABG pH POC ABG pCO2 POC ABG pO2 ABG pO2 ABG HCO3 ABG O2 Saturation ABG Base Excess ABG Hemoglobin ABG Oxyhemoglobin Oxyhemoglobin Sodium Potassium Chloride Carbon Dioxide BUN Creatinine Glucose POC Glucose 228 H 189 H Lactic Acid Calcium Phosphorus Magnesium AST ALT Alkaline Phosphatase C-Reactive Protein Total Protein Albumin Triglycerides Ur Specific [place] Urine Creatinine Crossmatch 06/24/21 06/24/21 06/24/21 04:00 05:43 06:40 WBC RBC Hgb Hct MCV MCH RDW Plt Count Lymph % (Auto) [place] % (Auto) Lymph # (Auto) [place] # (Auto) Seg Neutrophils % Seg Neuts % (Manual) Lymphocytes % (Manual) Monocytes % (Manual) Seg Neutrophils # Seg Neutrophils # Man Lymphocytes # (Manual) Monocytes # (Manual) PT INR APTT Fibrinogen D-Dimer ABG pH POC ABG pCO2 POC ABG pO2 ABG pO2 ABG HCO3 ABG O2 Saturation ABG Base Excess ABG Hemoglobin ABG Oxyhemoglobin Oxyhemoglobin Sodium 148 H Potassium 3.2 L Chloride 115.6 H Carbon Dioxide BUN 35 H Creatinine Glucose 153 H POC Glucose 134 H Lactic Acid Calcium 7.9 L Phosphorus 2.40 L D Magnesium AST ALT Alkaline Phosphatase C-Reactive Protein Total Protein Albumin Triglycerides Ur Specific [place] Urine Creatinine Crossmatch See Detail 06/24/21 06/24/21 06/24/21 11:08 16:47 21:49 WBC RBC Hgb Hct MCV MCH RDW Plt Count Lymph % (Auto) [place] % (Auto) Lymph # (Auto) [place] # (Auto) Seg Neutrophils % Seg Neuts % (Manual) Lymphocytes % (Manual) Monocytes % (Manual) Seg Neutrophils # Seg Neutrophils # Man Lymphocytes # (Manual) Monocytes # (Manual) PT INR APTT Fibrinogen D-Dimer ABG pH POC ABG pCO2 POC ABG pO2 ABG pO2 ABG HCO3 ABG O2 Saturation ABG Base Excess ABG Hemoglobin ABG Oxyhemoglobin Oxyhemoglobin Sodium Potassium Chloride Carbon Dioxide BUN Creatinine Glucose POC Glucose 153 H 201 H 132 H Lactic Acid Calcium Phosphorus Magnesium AST ALT Alkaline Phosphatase C-Reactive Protein Total Protein Albumin Triglycerides Ur Specific [place] Urine Creatinine Crossmatch 06/24/21 06/25/21 06/25/21 23:24 05:30 09:00 WBC RBC Hgb 8.3 L Hct 27.0 L MCV MCH RDW Plt Count Lymph % (Auto) [place] % (Auto) Lymph # (Auto) [place] # (Auto) Seg Neutrophils % Seg Neuts % (Manual) Lymphocytes % (Manual) Monocytes % (Manual) Seg Neutrophils # Seg Neutrophils # Man Lymphocytes # (Manual) Monocytes # (Manual) PT INR APTT Fibrinogen D-Dimer ABG pH POC ABG pCO2 POC ABG pO2 ABG pO2 ABG HCO3 ABG O2 Saturation ABG Base Excess ABG Hemoglobin ABG Oxyhemoglobin Oxyhemoglobin Sodium Potassium Chloride Carbon Dioxide BUN Creatinine Glucose POC Glucose 170 H 151 H Lactic Acid Calcium Phosphorus Magnesium AST ALT Alkaline Phosphatase C-Reactive Protein Total Protein Albumin Triglycerides Ur Specific [place] Urine Creatinine Crossmatch 06/25/21 06/25/21 06/25/21 11:29 14:24 16:48 WBC RBC Hgb 8.5 L Hct 27.5 L MCV MCH RDW Plt Count Lymph % (Auto) [place] % (Auto) Lymph # (Auto) [place] # (Auto) Seg Neutrophils % Seg Neuts % (Manual) Lymphocytes % (Manual) Monocytes % (Manual) Seg Neutrophils # Seg Neutrophils # Man Lymphocytes # (Manual) Monocytes # (Manual) PT INR APTT Fibrinogen D-Dimer ABG pH POC ABG pCO2 POC ABG pO2 ABG pO2 ABG HCO3 ABG O2 Saturation ABG Base Excess ABG Hemoglobin ABG Oxyhemoglobin Oxyhemoglobin Sodium Potassium Chloride Carbon Dioxide BUN Creatinine Glucose POC Glucose 189 H 224 H Lactic Acid Calcium Phosphorus Magnesium AST ALT Alkaline Phosphatase C-Reactive Protein Total Protein Albumin Triglycerides Ur Specific [place] Urine Creatinine Crossmatch 06/25/21 06/25/21 06/25/21 23:39 Unknown Unknown WBC 16.5 H RBC 2.90 L Hgb 8.0 L Hct 23.8 L MCV MCH RDW 22.8 H Plt Count Lymph % (Auto) [place] % (Auto) Lymph # (Auto) [place] # (Auto) Seg Neutrophils % Seg Neuts % (Manual) Lymphocytes % (Manual) Monocytes % (Manual) Seg Neutrophils # Seg Neutrophils # Man Lymphocytes # (Manual) Monocytes # (Manual) PT INR APTT Fibrinogen D-Dimer ABG pH POC ABG pCO2 POC ABG pO2 ABG pO2 ABG HCO3 ABG O2 Saturation ABG Base Excess ABG Hemoglobin ABG Oxyhemoglobin Oxyhemoglobin Sodium 149 H Potassium Chloride 115.6 H Carbon Dioxide BUN 28 H Creatinine Glucose 157 H POC Glucose 187 H Lactic Acid Calcium 8.0 L Phosphorus Magnesium AST ALT Alkaline Phosphatase C-Reactive Protein Total Protein Albumin Triglycerides Ur Specific [place] Urine Creatinine Crossmatch 06/26/21 06/26/21 06/26/21 05:22 05:29 05:29 WBC 16.2 H RBC 3.03 L Hgb 8.0 L Hct 25.1 L MCV MCH 26 L RDW 23.2 H Plt Count Lymph % (Auto) [place] % (Auto) Lymph # (Auto) [place] # (Auto) Seg Neutrophils % Seg Neuts % (Manual) Lymphocytes % (Manual) Monocytes % (Manual) Seg Neutrophils # Seg Neutrophils # Man Lymphocytes # (Manual) Monocytes # (Manual) PT INR APTT Fibrinogen D-Dimer ABG pH POC ABG pCO2 POC ABG pO2 ABG pO2 ABG HCO3 ABG O2 Saturation ABG Base Excess ABG Hemoglobin ABG Oxyhemoglobin Oxyhemoglobin Sodium 150 H Potassium Chloride 114.8 H Carbon Dioxide BUN 29 H Creatinine Glucose 229 H POC Glucose 211 H Lactic Acid Calcium 8.2 L Phosphorus Magnesium AST ALT Alkaline Phosphatase C-Reactive Protein Total Protein Albumin Triglycerides Ur Specific [place] Urine Creatinine Crossmatch 06/26/21 06/26/21 06/26/21 11:05 15:59 22:00 WBC RBC Hgb Hct MCV MCH RDW Plt Count Lymph % (Auto) [place] % (Auto) Lymph # (Auto) [place] # (Auto) Seg Neutrophils % Seg Neuts % (Manual) Lymphocytes % (Manual) Monocytes % (Manual) Seg Neutrophils # Seg Neutrophils # Man Lymphocytes # (Manual) Monocytes # (Manual) PT INR APTT Fibrinogen D-Dimer ABG pH POC ABG pCO2 POC ABG pO2 ABG pO2 ABG HCO3 ABG O2 Saturation ABG Base Excess ABG Hemoglobin ABG Oxyhemoglobin Oxyhemoglobin Sodium Potassium Chloride Carbon Dioxide BUN Creatinine Glucose POC Glucose 213 H 222 H 161 H Lactic Acid Calcium Phosphorus Magnesium AST ALT Alkaline Phosphatase C-Reactive Protein Total Protein Albumin Triglycerides Ur Specific [place] Urine Creatinine Crossmatch 06/26/21 06/27/21 06/27/21 23:24 04:15 04:15 WBC 14.3 H RBC 2.96 L Hgb 8.1 L Hct 24.6 L MCV MCH 27 L RDW 23.0 H Plt Count Lymph % (Auto) [place] % (Auto) Lymph # (Auto) [place] # (Auto) Seg Neutrophils % Seg Neuts % (Manual) Lymphocytes % (Manual) Monocytes % (Manual) Seg Neutrophils # Seg Neutrophils # Man Lymphocytes # (Manual) Monocytes # (Manual) PT INR APTT Fibrinogen D-Dimer ABG pH POC ABG pCO2 POC ABG pO2 ABG pO2 ABG HCO3 ABG O2 Saturation ABG Base Excess ABG Hemoglobin ABG Oxyhemoglobin Oxyhemoglobin Sodium 150 H Potassium Chloride 113.8 H Carbon Dioxide BUN 26 H Creatinine Glucose 246 H POC Glucose 164 H Lactic Acid Calcium 7.8 L Phosphorus Magnesium AST ALT Alkaline Phosphatase C-Reactive Protein Total Protein Albumin Triglycerides Ur Specific [place] Urine Creatinine Crossmatch 06/27/21 06/27/21 06/27/21 05:44 11:07 16:06 WBC RBC Hgb Hct MCV MCH RDW Plt Count Lymph % (Auto) [place] % (Auto) Lymph # (Auto) [place] # (Auto) Seg Neutrophils % Seg Neuts % (Manual) Lymphocytes % (Manual) Monocytes % (Manual) Seg Neutrophils # Seg Neutrophils # Man Lymphocytes # (Manual) Monocytes # (Manual) PT INR APTT Fibrinogen D-Dimer ABG pH POC ABG pCO2 POC ABG pO2 ABG pO2 ABG HCO3 ABG O2 Saturation ABG Base Excess ABG Hemoglobin ABG Oxyhemoglobin Oxyhemoglobin Sodium Potassium Chloride Carbon Dioxide BUN Creatinine Glucose POC Glucose 226 H 204 H 224 H Lactic Acid Calcium Phosphorus Magnesium AST ALT Alkaline Phosphatase C-Reactive Protein Total Protein Albumin Triglycerides Ur Specific [place] Urine Creatinine Crossmatch 06/27/21 06/28/21 06/28/21 23:49 04:00 04:00 WBC 15.4 H RBC 3.05 L Hgb 8.2 L Hct 25.0 L MCV MCH 27 L RDW 22.6 H Plt Count Lymph % (Auto) [place] % (Auto) Lymph # (Auto) [place] # (Auto) Seg Neutrophils % Seg Neuts % (Manual) Lymphocytes % (Manual) Monocytes % (Manual) Seg Neutrophils # Seg Neutrophils # Man Lymphocytes # (Manual) Monocytes # (Manual) PT INR APTT Fibrinogen D-Dimer ABG pH POC ABG pCO2 POC ABG pO2 ABG pO2 ABG HCO3 ABG O2 Saturation ABG Base Excess ABG Hemoglobin ABG Oxyhemoglobin Oxyhemoglobin Sodium 152 H Potassium 3.0 L Chloride 114.9 H Carbon Dioxide BUN 24 H Creatinine Glucose 158 H POC Glucose 195 H Lactic Acid Calcium 8.1 L Phosphorus Magnesium AST ALT Alkaline Phosphatase C-Reactive Protein Total Protein Albumin Triglycerides Ur Specific [place] Urine Creatinine Crossmatch 06/28/21 06/28/21 06/28/21 05:05 11:47 17:21 WBC RBC Hgb Hct MCV MCH RDW Plt Count Lymph % (Auto) [place] % (Auto) Lymph # (Auto) [place] # (Auto) Seg Neutrophils % Seg Neuts % (Manual) Lymphocytes % (Manual) Monocytes % (Manual) Seg Neutrophils # Seg Neutrophils # Man Lymphocytes # (Manual) Monocytes # (Manual) PT INR APTT Fibrinogen D-Dimer ABG pH POC ABG pCO2 POC ABG pO2 ABG pO2 ABG HCO3 ABG O2 Saturation ABG Base Excess ABG Hemoglobin ABG Oxyhemoglobin Oxyhemoglobin Sodium Potassium Chloride Carbon Dioxide BUN Creatinine Glucose POC Glucose 121 H 164 H 166 H Lactic Acid Calcium Phosphorus Magnesium AST ALT Alkaline Phosphatase C-Reactive Protein Total Protein Albumin Triglycerides Ur Specific [place] Urine Creatinine Crossmatch 06/28/21 06/28/21 06/29/21 18:14 21:54 00:55 WBC RBC Hgb Hct MCV MCH RDW Plt Count Lymph % (Auto) [place] % (Auto) Lymph # (Auto) [place] # (Auto) Seg Neutrophils % Seg Neuts % (Manual) Lymphocytes % (Manual) Monocytes % (Manual) Seg Neutrophils # Seg Neutrophils # Man Lymphocytes # (Manual) Monocytes # (Manual) PT INR APTT Fibrinogen D-Dimer ABG pH POC ABG pCO2 POC ABG pO2 ABG pO2 ABG HCO3 ABG O2 Saturation ABG Base Excess ABG Hemoglobin ABG Oxyhemoglobin Oxyhemoglobin Sodium Potassium Chloride Carbon Dioxide BUN Creatinine Glucose POC Glucose 150 H 148 H 176 H Lactic Acid Calcium Phosphorus Magnesium AST ALT Alkaline Phosphatase C-Reactive Protein Total Protein Albumin Triglycerides Ur Specific [place] Urine Creatinine Crossmatch 06/29/21 06/29/21 06/29/21 04:00 04:00 05:20 WBC 15.3 H RBC 3.04 L Hgb 8.0 L Hct 25.0 L MCV MCH 26 L RDW 22.3 H Plt Count Lymph % (Auto) [place] % (Auto) Lymph # (Auto) [place] # (Auto) Seg Neutrophils % Seg Neuts % (Manual) Lymphocytes % (Manual) Monocytes % (Manual) Seg Neutrophils # Seg Neutrophils # Man Lymphocytes # (Manual) Monocytes # (Manual) PT INR APTT Fibrinogen D-Dimer ABG pH POC ABG pCO2 POC ABG pO2 ABG pO2 ABG HCO3 ABG O2 Saturation ABG Base Excess ABG Hemoglobin ABG Oxyhemoglobin Oxyhemoglobin Sodium Potassium 3.1 L Chloride 108.7 H Carbon Dioxide BUN 20 H Creatinine Glucose 194 H POC Glucose 185 H Lactic Acid Calcium 8.0 L Phosphorus Magnesium AST ALT Alkaline Phosphatase C-Reactive Protein Total Protein Albumin Triglycerides Ur Specific [place] Urine Creatinine Crossmatch 06/29/21 06/29/21 06/30/21 12:18 17:20 00:49 WBC RBC Hgb Hct MCV MCH RDW Plt Count Lymph % (Auto) [place] % (Auto) Lymph # (Auto) [place] # (Auto) Seg Neutrophils % Seg Neuts % (Manual) Lymphocytes % (Manual) Monocytes % (Manual) Seg Neutrophils # Seg Neutrophils # Man Lymphocytes # (Manual) Monocytes # (Manual) PT INR APTT Fibrinogen D-Dimer ABG pH POC ABG pCO2 POC ABG pO2 ABG pO2 ABG HCO3 ABG O2 Saturation ABG Base Excess ABG Hemoglobin ABG Oxyhemoglobin Oxyhemoglobin Sodium Potassium Chloride Carbon Dioxide BUN Creatinine Glucose POC Glucose 135 H 185 H 156 H Lactic Acid Calcium Phosphorus Magnesium AST ALT Alkaline Phosphatase C-Reactive Protein Total Protein Albumin Triglycerides Ur Specific [place] Urine Creatinine Crossmatch 06/30/21 06/30/21 06/30/21 04:25 04:25 08:14 WBC 13.0 H RBC 3.19 L Hgb 8.2 L Hct 26.2 L MCV MCH 26 L RDW 22.3 H Plt Count Lymph % (Auto) [place] % (Auto) Lymph # (Auto) [place] # (Auto) Seg Neutrophils % Seg Neuts % (Manual) 81.0 H Lymphocytes % (Manual) 10.0 L Monocytes % (Manual) 8.0 H Seg Neutrophils # Seg Neutrophils # Man 10.5 H Lymphocytes # (Manual) Monocytes # (Manual) 1.0 H PT INR APTT Fibrinogen D-Dimer ABG pH POC ABG pCO2 POC ABG pO2 ABG pO2 ABG HCO3 ABG O2 Saturation ABG Base Excess ABG Hemoglobin ABG Oxyhemoglobin Oxyhemoglobin Sodium Potassium 3.0 L Chloride Carbon Dioxide BUN 20 H Creatinine Glucose 104 H POC Glucose 119 H Lactic Acid Calcium 8.3 L Phosphorus Magnesium AST ALT Alkaline Phosphatase C-Reactive Protein Total Protein Albumin Triglycerides Ur Specific [place] Urine Creatinine Crossmatch 06/30/21 06/30/21 06/30/21 11:36 16:24 22:44 WBC RBC Hgb Hct MCV MCH RDW Plt Count Lymph % (Auto) [place] % (Auto) Lymph # (Auto) [place] # (Auto) Seg Neutrophils % Seg Neuts % (Manual) Lymphocytes % (Manual) Monocytes % (Manual) Seg Neutrophils # Seg Neutrophils # Man Lymphocytes # (Manual) Monocytes # (Manual) PT INR APTT Fibrinogen D-Dimer ABG pH POC ABG pCO2 POC ABG pO2 ABG pO2 ABG HCO3 ABG O2 Saturation ABG Base Excess ABG Hemoglobin ABG Oxyhemoglobin Oxyhemoglobin Sodium Potassium Chloride Carbon Dioxide BUN Creatinine Glucose POC Glucose 154 H 208 H 174 H Lactic Acid Calcium Phosphorus Magnesium AST ALT Alkaline Phosphatase C-Reactive Protein Total Protein Albumin Triglycerides Ur Specific [place] Urine Creatinine Crossmatch 07/01/21 07/01/21 07/01/21 05:29 05:29 05:54 WBC 11.9 H RBC 3.00 L Hgb 8.1 L Hct 24.4 L MCV MCH 27 L RDW 21.7 H Plt Count Lymph % (Auto) [place] % (Auto) Lymph # (Auto) [place] # (Auto) Seg Neutrophils % Seg Neuts % (Manual) Lymphocytes % (Manual) Monocytes % (Manual) Seg Neutrophils # Seg Neutrophils # Man Lymphocytes # (Manual) Monocytes # (Manual) PT INR APTT Fibrinogen D-Dimer ABG pH POC ABG pCO2 POC ABG pO2 ABG pO2 ABG HCO3 ABG O2 Saturation ABG Base Excess ABG Hemoglobin ABG Oxyhemoglobin Oxyhemoglobin Sodium Potassium Chloride Carbon Dioxide BUN Creatinine Glucose 177 H POC Glucose 170 H Lactic Acid Calcium Phosphorus Magnesium AST ALT Alkaline Phosphatase C-Reactive Protein Total Protein Albumin Triglycerides Ur Specific [place] Urine Creatinine Crossmatch 07/01/21 07/02/21 07/02/21 10:54 05:05 10:18 WBC RBC Hgb Hct MCV MCH RDW Plt Count Lymph % (Auto) [place] % (Auto) Lymph # (Auto) [place] # (Auto) Seg Neutrophils % Seg Neuts % (Manual) Lymphocytes % (Manual) Monocytes % (Manual) Seg Neutrophils # Seg Neutrophils # Man Lymphocytes # (Manual) Monocytes # (Manual) PT INR APTT Fibrinogen D-Dimer ABG pH 7.488 H POC ABG pCO2 POC ABG pO2 ABG pO2 97.2 H ABG HCO3 27.1 H ABG O2 Saturation ABG Base Excess 3.5 H ABG Hemoglobin 7.9 L ABG Oxyhemoglobin Oxyhemoglobin Sodium Potassium Chloride Carbon Dioxide BUN Creatinine Glucose POC Glucose 184 H 182 H Lactic Acid Calcium Phosphorus Magnesium AST ALT Alkaline Phosphatase C-Reactive Protein Total Protein Albumin Triglycerides Ur Specific [place] Urine Creatinine Crossmatch 07/02/21 07/02/21 07/03/21 12:14 16:18 09:47 WBC RBC 3.01 L Hgb 8.3 L Hct 24.3 L MCV MCH RDW 21.7 H Plt Count Lymph % (Auto) 8.4 L [place] % (Auto) Lymph # (Auto) 0.8 L [place] # (Auto) Seg Neutrophils % 80.6 H Seg Neuts % (Manual) Lymphocytes % (Manual) Monocytes % (Manual) Seg Neutrophils # Seg Neutrophils # Man Lymphocytes # (Manual) Monocytes # (Manual) PT INR APTT Fibrinogen D-Dimer ABG pH POC ABG pCO2 POC ABG pO2 ABG pO2 ABG HCO3 ABG O2 Saturation ABG Base Excess ABG Hemoglobin ABG Oxyhemoglobin Oxyhemoglobin Sodium Potassium Chloride Carbon Dioxide BUN Creatinine Glucose POC Glucose 184 H 194 H Lactic Acid Calcium Phosphorus Magnesium AST ALT Alkaline Phosphatase C-Reactive Protein Total Protein Albumin Triglycerides Ur Specific [place] Urine Creatinine Crossmatch 07/03/21 07/03/21 10:44 11:24 WBC RBC Hgb Hct MCV MCH RDW Plt Count Lymph % (Auto) [place] % (Auto) Lymph # (Auto) [place] # (Auto) Seg Neutrophils % Seg Neuts % (Manual) Lymphocytes % (Manual) Monocytes % (Manual) Seg Neutrophils # Seg Neutrophils # Man Lymphocytes # (Manual) Monocytes # (Manual) PT INR APTT Fibrinogen D-Dimer ABG pH POC ABG pCO2 POC ABG pO2 ABG pO2 ABG HCO3 ABG O2 Saturation ABG Base Excess ABG Hemoglobin ABG Oxyhemoglobin Oxyhemoglobin Sodium Potassium 3.0 L Chloride Carbon Dioxide BUN Creatinine Glucose 200 H POC Glucose 180 H Lactic Acid Calcium 8.3 L Phosphorus Magnesium AST ALT Alkaline Phosphatase C-Reactive Protein Total Protein Albumin Triglycerides Ur Specific [place] Urine Creatinine Crossmatch
--- NOTE | 2021-07-03 14:01 | Progress Note ---
Assessment and Plan Cultures: 06/12/2021 blood cultures: no growth A/P: 76-year-old female with diabetes, hypertension, gout was admitted to the hospital on 06/11/2021 with swelling of the submandibular region, tongue and difficulty breathing, labs also revealed severe coagulopathy due to Coumadin. 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 Shock resolved. s/p tracheostomy and PEG tube placement 06/19/2021. #Acute respiratory failure: s/p trach #Right-sided pneumothorax: s/p chest tube. #Diabetes mellitus, uncontrolled #Coagulopathy: Secondary to Coumadin. #Acute blood loss anemia Recs: -continue Zosyn. plan 21 days -continue on steroid taper per pulm/ICU -Consider CT neck with IV contrast to rule out any abscess given mild fevers, persistent leukocytosis. Sinai Small MD [facility] ([facility]) O: [phone] F: [phone] Subjective Date of service: 07/03/21 Interval history: Afebrile, normal white count. Objective - Exam Narrative Exam: Physical Exam: Constitutional: Awake, on T-piece Head, Ears, Nose: Normocephalic, atraumatic. External ears, nose normal Eyes: Conjunctivae/corneas clear. No icterus. No ptosis. Oral: trach Cardiovascular: S1, S2 + Respiratory: AE reduced, right-sided chest tube. GI: Soft, bowel sounds +, PEG + Musculoskeletal: No pedal edema, no cyanosis. Skin: No rash or abscess Hem/Lymphatic: No palpable cervical or supraclavicular nodes. No lymphangitis Psych: no agitation Neurological: on t-piece examined. - Constitutional Vitals: Vital Signs Temp Pulse Resp BP Pulse Ox 98.0 F 75 18 131/84 99 07/03/21 11:25 07/03/21 11:25 07/03/21 11:25 07/03/21 11:25 07/03/21 11:25 Temperature -Last 24 Hours Temperature 98.0 F Temperature 99.1 F Temperature 98.5 F Temperature 99.0 F Temperature 98.3 F Temperature 98.6 F - Labs CBC & Chem 7: 07/03/21 09:47 07/03/21 10:44 Labs: Abnormal lab results 07/02/21 07/03/21 07/03/21 Range/Units 16:18 09:47 10:44 RBC 3.01 L (3.65-5.03) M/mm3 Hgb 8.3 L (10.1-14.3) gm/dl Hct 24.3 L (30.3-42.9) % RDW 21.7 H (13.2-15.2) % Lymph % (Auto) 8.4 L (13.4-35.0) % Lymph # (Auto) 0.8 L (1.2-5.4) K/mm3 Seg Neutrophils % 80.6 H (40.0-70.0) % Potassium 3.0 L (3.6-5.0) mmol/L Glucose 200 H (65-100) mg/dL POC Glucose 194 H (70-105) mg/dL Calcium 8.3 L (8.4-10.2) mg/dL 07/03/21 Range/Units 11:24 RBC (3.65-5.03) M/mm3 Hgb (10.1-14.3) gm/dl Hct (30.3-42.9) % RDW (13.2-15.2) % Lymph % (Auto) (13.4-35.0) % Lymph # (Auto) (1.2-5.4) K/mm3 Seg Neutrophils % (40.0-70.0) % Potassium (3.6-5.0) mmol/L Glucose (65-100) mg/dL POC Glucose 180 H (70-105) mg/dL Calcium (8.4-10.2) mg/dL
[2021-07-03] MEDS: INSULIN GLARGINE 100 UNITS/ML SUB-Q SCH (22:07)
[2021-07-03] MEDS: ENOXAPARIN 40 MG/0.4 ML INJ SUB-Q SCH (22:07)
[2021-07-03] MEDS ORDERED: LORazepam 2 MG/ML VIAL IV ONE (22:19)
[2021-07-03 23:02] LABS: ABG HCO3 30.3 mmol/L (20.0-26.0); ABG Methemoglobin 0.6 % (0.0-1.5); ABG Oxygen Saturation 96.8 % (95.0-99.0); ABG PCO2 79.4 mm Hg; ABG PO2 104.5 mm Hg (80.0-90.0)
[2021-07-03 23:04] LABS: ABG PH 7.199 pH Units (7.350-7.450)
[2021-07-03] MEDS ORDERED: FUROSEMIDE 20 MG/2 ML INJ ONE (23:15)
[2021-07-03] MEDS ORDERED: FUROSEMIDE 20 MG/2 ML INJ IV ONE (23:20)
--- NOTE | 2021-07-03 23:59 | XRay Report ---
CHEST 1 VIEW INDICATION: RESP ISSUES. COMPARISON: 06/30/2021 FINDINGS: Support devices: Unchanged. Heart: Stable. Lungs/Pleura: Previously seen bilateral pulmonary opacities have improved. There is persistent bibasi lar airspace disease which could be due to atelectasis given the low lung volumes. No pneumothorax. There is decrease in previously seen soft tissue gas in the chest wall. IMPRESSION: 1. Overall improvement with persistent bibasilar opacities that could be atelectatic given the low vo lumes. Signer Name: Brent Falcon MD Signed: 07/03/2021 11:55 PM Workstation Name: [id number]
[2021-07-04] MEDS: INSULIN LISPRO 100 UNIT/ML SUB-Q SCH ×4 (00:33→18:42)
[2021-07-04] MEDS: PIPERACIL/TAZOBACTA 4.5/NS 100 4.5 GM/100 ML VIAL IV SCH ×3 (00:39→17:00)
[2021-07-04 02:11] LABS: ABG Base Excess 2.5 mmol/L (-2.0-3.0); ABG HCO3 26.7 mmol/L (20.0-26.0); ABG Methemoglobin 0.6 % (0.0-1.5); ABG PCO2 39.5 mm Hg; ABG PH 7.448 pH Units (7.350-7.450); ABG PO2 107.7 mm Hg (80.0-90.0)
--- NOTE | 2021-07-04 04:52 | Event Note ---
Date: 07/04/21 Called to see 76-year-old female patient with acute hypoxic respiratory failure who currently has a trach becoming less responsive and went into acute respiratory distress. Upon exam: Lungs-bilateral crackles. Given a dose of IV 20mg lasix. ABG was reviewed: pH 7.199, PCO2 79.4, PO2 104.5, bicarb 30.3, O2 sat 96.8 Stat chest x-ray done still shows persistent bibasilar opacities Patient transferred into the intensive care unit - on T piece for close monitoring. Repeat ABG done shows: pH 7.44, PCO2 39.5, PO2 107.7, bicarb 26.7, O2 sat 98 Incoming [facility] hospitalist will continue to follow.
[2021-07-04] MEDS: hydrALAZINE 100 MG TAB FEEDTUBE SCH ×3 (05:11→22:13)
[2021-07-04 05:45] LABS: Basophils % (Auto) 0.5 % (0.0-1.8); Eosinophils # (Auto) 0.2 K/mm3 (0.0-0.4); Eosinophils % (Auto) 1.8 % (0.0-4.3); Hematocrit 25.2 % (30.3-42.9); Hemoglobin 8.5 gm/dl (10.1-14.3); Lymphocytes # (Auto) 0.6 K/mm3 (1.2-5.4); Lymphocytes % (Auto) 6.1 % (13.4-35.0); Mean Corpuscular HGB Conc 34 % (30-34); Mean Corpuscular Volume 81 fl (79-97); Monocytes # (Auto) 0.6 K/mm3 (0.0-0.8); Monocytes % (Auto) 6.6 % (0.0-7.3); Platelet Count 172 K/mm3 (140-440); Red Blood Count 3.12 M/mm3 (3.65-5.03); Red Cell Distribution Width 21.3 % (13.2-15.2)
[2021-07-04 05:58] LABS: BUN/Creatinine Ratio 21; Blood Urea Nitrogen 17 mg/dL (7-17); Calcium 8.4 mg/dL (8.4-10.2); Hemolysis Index 0
[2021-07-04] MEDS ORDERED: POTASSIUM CHLORIDE 20 MEQ PACKET FEEDTUBE SCH (09:00)
[2021-07-04] MEDS: amLODIPine 5 MG TAB PO SCH (09:34)
[2021-07-04] MEDS: FAMOTIDINE 20 MG TAB FEEDTUBE SCH ×2 (09:35→22:13)
--- NOTE | 2021-07-04 09:45 | Progress Note ---
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 07/04/21: Will keep in ICU/IMCU for now. Treat pain in back with [place] and discontinue Tylenol. Follow up with CM on placement. 07/03/21: Continue current level of care. CM working on placement. 07/02/21: ABG now. Patient did have low grade temp earlier today and still has a white count despite being off steroids. It is trending down. Reviewed ID note and they did mention of persistent consider ct of neck. May need to do this. If done, please scan head as well. Will continue to follow. Spoke with RT about obtaining ABG. 07/01/21: Continue T-piece. Follow up speech recs. Follow up electrolytes. PT/OT. Stable for transfer when bed available 06/30/21: Aggressive replacement of electrolytes. Will repeat chemistry tonight around 8. please call for orders as we would like to keep her K at 4 and Mag at 2. Chemistry in the am. Stable for transfer to telemetry floor. 06/29/21: Speech did see but patient had decreased voice quality and increased wob so aborted. Will ask them to assess again on Thursday. Chest tube out and o rdered follow up CXR. Stable for transfer but ok with continuing monitoring in ICU. If bed needed could go to step down. 06/28/21: monitor drainage in ICU for 24 more hours. Can likely come out to [facility]. Continue in ICU for now. Once chest tube out, no objection to transfer. 06/27/21: Will place chest tube to water seal. Instructed staff if any change in respiratory status, place back on suction and obtain CXR. Otherwise will leave off. Continue T-piece as tolerated. Rehab/half-way/LTACH appropriate. STable for transfer if and when bed becomes available. 06/26/21: T-piece today. If off the vent, agree with surgery and removal of chest tube as subq emphysema is improving as well. PT has seen suggested LTACH, however if we are able to wean she may need half-way/rehab. Prognosis continues to improve. 06/25/21: Continue PSV as tolerated. Hopeful T-piece in the next 24-48 hours. Will drop steroids down further on . Can switch to daily and even change to oral. PT/OT consult, and follow up recs. May need LTACH vs rehab vs both. Continue to follow. 06/24/21: Daily PSV trials. Maybe ready for T-piece sson. Continue to wean steroids to off. IMS changed to 40q12 which is fine. Continue chest tube until off vent. Still on list for [facility] but will discuss with CM about checking into LTACH as patient will need rehab. PT/OT consult. 06/21/21: Continue current level of sedation. Chest tube does not have air leak but there is clear evidence of a PTX on right. Stripped tube at bedside and will repeat CXR in the morning. Hold on weaning sedation for now and hold on PSV trials. May need second chest tube vs vats if PTX worsens or does not resolve. Patient still on list for [facility], hopeful they will have a bed soon. Drop steroids to 40q8 starting Thursday. Monitor renal function, likely will improve. Needs more free water. Prognosis still remains guarded. 06/20/21: Restart some sedation. At least pain and maybe diprovan. Would like to wake patient up at some point and attempt some PSV trials. Labs are off this am. Large bump in white count but no fever, also no diff drawn. Could be error vs steroid related but this is in just 24 hours. Will repeat tomorrow. If spikes a temp neves culture as well. Small bump in Cr but still in normal range. Will watch. Now that peg in place, tube feeds and free water flushes. Still on list for [facility]. Patient has been steroids greater than 7 days so will have to wean. Can drop to 60q8 starting tomorrow. Prognosis still remains guarded. 06/19/21: surgery to attempt trach and peg today. Still will ask to keep on transfer list for [facility] as her other issues still need to be addressed. If able to place peg, can stop clinimix, give free water and start tube feeds. Prognosis remains guarded. pH better with drop in tidal volume. 06/18/21: [facility] has agreed to accept but no ICU beds available at this time. Spoke with Dr. Vasquez yesterday and Dr. Patricia spoke with ENT there. Spoke with RT this am and patient did have a leak when cuff let down and her tidal volumes dropped to below 100. Patient remains on abx and steriods. Will consider lightening sedation tomorrow and seeing how patient does if cuff leak persists. Dropped tidal volumes to 450. Continue PPN for now. 06/17/21: spoke with surgery and they feel transfer is reasonable. I have reached out to [facility] and [facility]MS has spoken with someone from [place]. Await to hear back from them. Continue supportive measures and adequate sedation for pain control. No PSV trials as of yet. Blood sugar control, increase lantus. Most likely secondary to steroids. Continue abx therapy. Guarded prognosis. 06/16/21: Renal function improved with fluids. IMS to give more fluids (LR) today which I agree with. FeNa is =0.7. Should be fluid responsive. Continue clinimix. Needs long acting insulin. Agree with lantus. Asked nursing to increase sedation now that we know that patient's mental status is stable. Picc today. Air leak test vs Neck CT on tomorrow. 06/15/21: Hopeful with worsening renal function ( likely from code on yesterday) that sedatives are just lingering from that. Still making good urine but output has fallen off. Will send urine sodium and urine cr to check Fena. Most likely this is prerenal. ordered renal ultrasound as well. Continue abx and steroids. Will start clinimix today. This should help with the free water piece. Will give another liter bolus of LR right now. Keep sedation off for now. Guarded prognosis. 06/14/21: Will discuss with surgery future plans. They have ordered steroids to help with inflammation and abx continue. All others appears stable and no acute evidence of bleeding at this time. Follow up surgery recs if any new ones. Guarded prognosis. 06/13/21: Patient to back to OR today. BLood transfusion. Will send DIC panel and may need to given cryo if over 6 units of PRBC's given. Patient will likely need trach and peg as we need to address nutrition. Chest tube placed, large bore now. Patient now with right sided effusion. Hemothorax???. Will continue to monitor output. Needs picc line as femoral should come out soon. Continue pressors. Continue sedation for pain control and comfort. Guarded prognosis. Surgery comfortable with neck and current situation so they have not request transfer. 1. Placed right femoral central line. pressors can run through this. 2. Repeat chemistry stat given bicarb of 8 and blood sugar of greater than 600. Ordering FSBS now. Earlier bicarb was 25. If accurate will need bicarb drip and vasopressin but not sure as pH on blood gas was normal done around the same time. 3. Coagulopathy is improving. INR down to 4.55 and PTT and pT improving. Will continue to give FFP. Ordered more vitamin K. H/H is stable but patient is oozing from neck and mouth. 4. Vasopressor for blood pressure. Need to keep map 65 and greater 5. Lujan is needed for accurate I/O 6. Surgery called by IMS about current CT situation. They state they will reassess in the am. I have reviewed the images myself. If I can position the patient safely without compromising the airway after adequate sedation, may consider placing chest tube now as INR is better and FFP is hanging. Patient is morbidly obese so shits could move the ET tube so if not safe, will wait until surgery comes in the morning. 7. Would not attempt to pass OG or NG tube given current situation in neck 8. Will discuss with surgery tomorrow but I feel this patient should be transferred to a tertiary care facility with ENT as we do not have that service here. CCT 31 minutes. Subjective Date of service: 07/04/21 Interval history: Transferred to ICU overnight secondary to decreased level of consciousness. ABG done and had respiratory acidosis. Given Lasix by IMS and kept on T-piece./ Repeat ABG showed normal pH and CO2 without any ventilatory maneuvers. Awake and alert. Follows commands and is appropriate. Objective Vital Signs - 12hr 07/03/21 07/03/21 07/04/21 23:44 23:51 00:00 Temperature Pulse Rate 116 H 110 H 113 H Pulse Rate [ 117 H Right Dorsalis Pedis] Respiratory 21 34 H 33 H Rate Blood Pressure 94/50 94/50 88/44 O2 Sat by Pulse 97 97 96 Oximetry O2 Sat by Pulse Oximetry [ Assessment] 07/04/21 07/04/21 07/04/21 00:15 00:31 00:45 Temperature Pulse Rate 114 H 106 H 99 H Pulse Rate [ Right Dorsalis Pedis] Respiratory 28 H 33 H 32 H Rate Blood Pressure 88/44 93/47 93/47 O2 Sat by Pulse 98 98 98 Oximetry O2 Sat by Pulse Oximetry [ Assessment] 07/04/21 07/04/21 07/04/21 01:00 01:15 01:30 Temperature Pulse Rate 100 H 97 H 99 H Pulse Rate [ Right Dorsalis Pedis] Respiratory 34 H 31 H 30 H Rate Blood Pressure 109/58 109/58 109/64 O2 Sat by Pulse 97 99 98 Oximetry O2 Sat by Pulse Oximetry [ Assessment] 07/04/21 07/04/21 07/04/21 01:45 02:00 02:15 Temperature Pulse Rate 102 H 124 H 101 H Pulse Rate [ Right Dorsalis Pedis] Respiratory 22 26 H 29 H Rate Blood Pressure 109/64 116/75 116/75 O2 Sat by Pulse 100 99 100 Oximetry O2 Sat by Pulse Oximetry [ Assessment] 07/04/21 07/04/21 07/04/21 02:30 02:45 03:00 Temperature Pulse Rate 85 104 H 94 H Pulse Rate [ Right Dorsalis Pedis] Respiratory 28 H 26 H 26 H Rate Blood Pressure 113/63 113/63 117/67 O2 Sat by Pulse 98 100 99 Oximetry O2 Sat by Pulse Oximetry [ Assessment] 07/04/21 07/04/21 07/04/21 03:15 03:30 03:45 Temperature Pulse Rate 95 H 108 H 115 H Pulse Rate [ Right Dorsalis Pedis] Respiratory 25 H 21 26 H Rate Blood Pressure 117/67 115/74 115/74 O2 Sat by Pulse 100 100 100 Oximetry O2 Sat by Pulse Oximetry [ Assessment] 07/04/21 07/04/21 07/04/21 04:00 04:15 04:30 Temperature Pulse Rate 82 93 H 102 H Pulse Rate [ Right Dorsalis Pedis] Respiratory 20 22 22 Rate Blood Pressure 115/63 115/63 118/67 O2 Sat by Pulse 100 100 100 Oximetry O2 Sat by Pulse Oximetry [ Assessment] 07/04/21 07/04/21 07/04/21 04:45 04:51 05:00 Temperature 98.3 F Pulse Rate 115 H 114 H Pulse Rate [ Right Dorsalis Pedis] Respiratory 22 20 Rate Blood Pressure 118/67 117/69 O2 Sat by Pulse 100 100 Oximetry O2 Sat by Pulse Oximetry [ Assessment] 07/04/21 07/04/21 07/04/21 05:15 05:31 05:45 Temperature Pulse Rate 105 H 97 H 95 H Pulse Rate [ Right Dorsalis Pedis] Respiratory 20 22 18 Rate Blood Pressure 117/69 117/69 117/69 O2 Sat by Pulse 100 99 99 Oximetry O2 Sat by Pulse Oximetry [ Assessment] 07/04/21 07/04/21 07/04/21 06:00 06:15 06:30 Temperature Pulse Rate 92 H 110 H 87 Pulse Rate [ Right Dorsalis Pedis] Respiratory 21 20 23 Rate Blood Pressure 117/72 117/72 121/65 O2 Sat by Pulse 100 100 100 Oximetry O2 Sat by Pulse Oximetry [ Assessment] 07/04/21 07/04/21 07/04/21 06:45 07:00 07:15 Temperature Pulse Rate 91 H 92 H 79 Pulse Rate [ Right Dorsalis Pedis] Respiratory 22 19 21 Rate Blood Pressure 121/65 117/66 117/66 O2 Sat by Pulse 100 100 100 Oximetry O2 Sat by Pulse Oximetry [ Assessment] 07/04/21 07/04/21 07/04/21 07:30 07:45 07:56 Temperature Pulse Rate 84 107 H Pulse Rate [ Right Dorsalis Pedis] Respiratory 17 19 Rate Blood Pressure 128/66 128/66 O2 Sat by Pulse 100 100 Oximetry O2 Sat by Pulse 100 Oximetry [ Assessment] 07/04/21 07/04/21 07/04/21 08:00 08:05 08:15 Temperature Pulse Rate 116 H 98 H Pulse Rate [ Right Dorsalis Pedis] Respiratory 14 13 Rate Blood Pressure 126/65 126/65 O2 Sat by Pulse 100 100 100 Oximetry O2 Sat by Pulse Oximetry [ Assessment] Constitutional: alert, other (on vent trach in place) Eyes: non-icteric ENT: oropharynx moist Neck: other (trach in place) Ascultation: Bilateral: clear Percussion: Bilateral: not dull Cardiovascular: regular rate and rhythm Gastrointestinal: normoactive bowel sounds, soft Integumentary: other (subq emphysema) Extremities: no edema, other (subq emphysema) Neurologic: normal mental status CBC and BMP: 07/04/21 05:13 07/04/21 05:13 ABG, PT/INR, D-dimer: ABG ABG pH 7.448 pH Units (7.350-7.450) 07/04/21 01:44 POC ABG pCO2 25.6 mmHg (32.0-48.0) L 06/13/21 04:31 ABG pCO2 39.5 mm Hg 07/04/21 01:44 POC ABG pO2 138.8 mmHg (83-108) H 06/13/21 04:31 ABG pO2 107.7 mm Hg (80.0-90.0) H 07/04/21 01:44 POC ABG HCO3 21.4 06/13/21 04:31 ABG O2 Saturation 98.0 % (95.0-99.0) 07/04/21 01:44 PT/INR, D-dimer PT 18.3 Sec. (12.2-14.9) H 06/20/21 04:33 INR 1.37 (0.87-1.13) H 06/20/21 04:33 D-Dimer 1244.63 ng/mlDDU (0-234) H 06/13/21 Unknown Abnormal lab findings: Abnormal Labs 06/11/21 06/11/21 06/11/21 15:23 15:23 19:20 WBC 12.0 H RBC Hgb Hct MCV 72 L MCH 21 L RDW 17.5 H Plt Count Lymph % (Auto) 12.9 L [place] % (Auto) 8.6 H Lymph # (Auto) [place] # (Auto) 1.0 H Seg Neutrophils % 77.4 H Seg Neuts % (Manual) Lymphocytes % (Manual) Monocytes % (Manual) Seg Neutrophils # 9.3 H Seg Neutrophils # Man Lymphocytes # (Manual) Monocytes # (Manual) PT INR APTT Fibrinogen D-Dimer ABG pH POC ABG pCO2 POC ABG pO2 ABG pO2 ABG HCO3 ABG O2 Saturation ABG Base Excess ABG Hemoglobin ABG Oxyhemoglobin Oxyhemoglobin Sodium Potassium Chloride Carbon Dioxide BUN Creatinine Glucose 144 H POC Glucose Lactic Acid Calcium Phosphorus Magnesium AST ALT Alkaline Phosphatase C-Reactive Protein Total Protein Albumin Triglycerides Ur Specific [place] Urine Creatinine Crossmatch See Detail 06/11/21 06/11/21 06/11/21 19:29 19:29 23:21 WBC 15.8 H RBC Hgb 9.4 L Hct MCV 72 L MCH 22 L RDW 17.4 H Plt Count Lymph % (Auto) 9.2 L [place] % (Auto) Lymph # (Auto) [place] # (Auto) Seg Neutrophils % 89.0 H Seg Neuts % (Manual) Lymphocytes % (Manual) Monocytes % (Manual) Seg Neutrophils # 14.0 H Seg Neutrophils # Man Lymphocytes # (Manual) Monocytes # (Manual) PT 72.9 H INR 8.18 H* APTT 71.7 H* Fibrinogen D-Dimer ABG pH POC ABG pCO2 POC ABG pO2 ABG pO2 ABG HCO3 ABG O2 Saturation ABG Base Excess ABG Hemoglobin ABG Oxyhemoglobin Oxyhemoglobin Sodium 149 H D Potassium Chloride 124.3 H Carbon Dioxide 8 L* D BUN Creatinine 0.3 L Glucose 628 H* POC Glucose Lactic Acid Calcium 2.4 L* D Phosphorus Magnesium AST ALT < 5 L Alkaline Phosphatase 19 L C-Reactive Protein Total Protein 1.6 L D Albumin 0.8 L Triglycerides Ur Specific [place] Urine Creatinine Crossmatch 06/11/21 06/11/21 06/11/21 23:21 23:22 23:42 WBC RBC Hgb Hct MCV MCH 27 L RDW 22.2 H Plt Count 131 L Lymph % (Auto) [place] % (Auto) Lymph # (Auto) [place] # (Auto) Seg Neutrophils % Seg Neuts % (Manual) Lymphocytes % (Manual) Monocytes % (Manual) Seg Neutrophils # Seg Neutrophils # Man Lymphocytes # (Manual) Monocytes # (Manual) PT 46.3 H INR 4.55 H APTT 54.8 H Fibrinogen D-Dimer ABG pH POC ABG pCO2 POC ABG pO2 325.9 H ABG pO2 ABG HCO3 ABG O2 Saturation ABG Base Excess ABG Hemoglobin 8.0 L ABG Oxyhemoglobin 99.0 H Oxyhemoglobin Sodium Potassium Chloride Carbon Dioxide BUN Creatinine Glucose POC Glucose Lactic Acid Calcium Phosphorus Magnesium AST ALT Alkaline Phosphatase C-Reactive Protein Total Protein Albumin Triglycerides Ur Specific [place] Urine Creatinine Crossmatch 06/12/21 06/12/21 06/12/21 01:45 01:45 01:45 WBC 21.6 H RBC 3.04 L Hgb 6.7 L D Hct 22.4 L D MCV 74 L MCH 22 L RDW 18.9 H Plt Count Lymph % (Auto) [place] % (Auto) Lymph # (Auto) [place] # (Auto) Seg Neutrophils % Seg Neuts % (Manual) 76.0 H Lymphocytes % (Manual) 2.0 L Monocytes % (Manual) 8.0 H Seg Neutrophils # Seg Neutrophils # Man 16.4 H Lymphocytes # (Manual) 0.4 L Monocytes # (Manual) 1.7 H PT 25.4 H INR 2.10 H APTT Fibrinogen D-Dimer ABG pH POC ABG pCO2 POC ABG pO2 ABG pO2 ABG HCO3 ABG O2 Saturation ABG Base Excess ABG Hemoglobin ABG Oxyhemoglobin Oxyhemoglobin Sodium Potassium 5.6 H D Chloride Carbon Dioxide 20 L D BUN Creatinine Glucose 368 H POC Glucose Lactic Acid Calcium 7.1 L D Phosphorus Magnesium AST ALT Alkaline Phosphatase C-Reactive Protein Total Protein 5.3 L D Albumin 3.1 L Triglycerides Ur Specific [place] Urine Creatinine Crossmatch 06/12/21 06/12/21 06/12/21 02:05 04:41 11:05 WBC 14.6 H RBC 3.52 L Hgb 8.5 L Hct 27.7 L MCV MCH 24 L RDW 20.9 H Plt Count Lymph % (Auto) [place] % (Auto) Lymph # (Auto) [place] # (Auto) Seg Neutrophils % Seg Neuts % (Manual) Lymphocytes % (Manual) Monocytes % (Manual) Seg Neutrophils # Seg Neutrophils # Man Lymphocytes # (Manual) Monocytes # (Manual) PT INR APTT Fibrinogen D-Dimer ABG pH POC ABG pCO2 POC ABG pO2 224.6 H ABG pO2 ABG HCO3 ABG O2 Saturation ABG Base Excess ABG Hemoglobin 7.3 L ABG Oxyhemoglobin 98.7 H Oxyhemoglobin Sodium Potassium Chloride Carbon Dioxide BUN Creatinine Glucose POC Glucose 308 H Lactic Acid Calcium Phosphorus Magnesium AST ALT Alkaline Phosphatase C-Reactive Protein Total Protein Albumin Triglycerides Ur Specific [place] Urine Creatinine Crossmatch 06/12/21 06/12/21 06/12/21 11:05 11:05 12:18 WBC RBC Hgb Hct MCV MCH RDW Plt Count Lymph % (Auto) [place] % (Auto) Lymph # (Auto) [place] # (Auto) Seg Neutrophils % Seg Neuts % (Manual) Lymphocytes % (Manual) Monocytes % (Manual) Seg Neutrophils # Seg Neutrophils # Man Lymphocytes # (Manual) Monocytes # (Manual) PT 16.8 H INR 1.23 H APTT Fibrinogen D-Dimer ABG pH POC ABG pCO2 POC ABG pO2 ABG pO2 ABG HCO3 ABG O2 Saturation ABG Base Excess ABG Hemoglobin ABG Oxyhemoglobin Oxyhemoglobin Sodium Potassium Chloride Carbon Dioxide BUN 24 H Creatinine Glucose 324 H POC Glucose 281 H Lactic Acid Calcium 7.5 L Phosphorus Magnesium AST 70 H ALT 57 H Alkaline Phosphatase C-Reactive Protein Total Protein 6.0 L Albumin 3.6 L Triglycerides Ur Specific [place] Urine Creatinine Crossmatch 06/12/21 06/12/21 06/12/21 17:00 17:00 17:00 WBC RBC Hgb 7.5 L Hct 24.0 L MCV MCH RDW Plt Count Lymph % (Auto) [place] % (Auto) Lymph # (Auto) [place] # (Auto) Seg Neutrophils % Seg Neuts % (Manual) Lymphocytes % (Manual) Monocytes % (Manual) Seg Neutrophils # Seg Neutrophils # Man Lymphocytes # (Manual) Monocytes # (Manual) PT 16.0 H INR 1.16 H APTT Fibrinogen D-Dimer ABG pH POC ABG pCO2 POC ABG pO2 ABG pO2 ABG HCO3 ABG O2 Saturation ABG Base Excess ABG Hemoglobin ABG Oxyhemoglobin Oxyhemoglobin Sodium Potassium Chloride Carbon Dioxide BUN Creatinine Glucose POC Glucose Lactic Acid Calcium Phosphorus Magnesium AST ALT Alkaline Phosphatase C-Reactive Protein Total Protein Albumin Triglycerides Ur Specific [place] 1.035 H Urine Creatinine Crossmatch 06/12/21 06/12/21 06/12/21 18:06 23:00 23:05 WBC RBC Hgb 7.6 L Hct 23.5 L MCV MCH RDW Plt Count Lymph % (Auto) [place] % (Auto) Lymph # (Auto) [place] # (Auto) Seg Neutrophils % Seg Neuts % (Manual) Lymphocytes % (Manual) Monocytes % (Manual) Seg Neutrophils # Seg Neutrophils # Man Lymphocytes # (Manual) Monocytes # (Manual) PT INR APTT Fibrinogen D-Dimer ABG pH POC ABG pCO2 POC ABG pO2 ABG pO2 ABG HCO3 ABG O2 Saturation ABG Base Excess ABG Hemoglobin ABG Oxyhemoglobin Oxyhemoglobin Sodium Potassium Chloride Carbon Dioxide BUN Creatinine Glucose POC Glucose 257 H 300 H Lactic Acid Calcium Phosphorus Magnesium AST ALT Alkaline Phosphatase C-Reactive Protein Total Protein Albumin Triglycerides Ur Specific [place] Urine Creatinine Crossmatch 06/13/21 06/13/21 06/13/21 04:31 05:19 07:30 WBC RBC Hgb 6.8 L Hct 21.7 L MCV MCH RDW Plt Count Lymph % (Auto) [place] % (Auto) Lymph # (Auto) [place] # (Auto) Seg Neutrophils % Seg Neuts % (Manual) Lymphocytes % (Manual) Monocytes % (Manual) Seg Neutrophils # Seg Neutrophils # Man Lymphocytes # (Manual) Monocytes # (Manual) PT INR APTT Fibrinogen D-Dimer ABG pH 7.541 H POC ABG pCO2 25.6 L POC ABG pO2 138.8 H ABG pO2 ABG HCO3 ABG O2 Saturation ABG Base Excess ABG Hemoglobin 7.3 L ABG Oxyhemoglobin 98.1 H Oxyhemoglobin Sodium Potassium Chloride Carbon Dioxide BUN Creatinine Glucose POC Glucose 286 H Lactic Acid Calcium Phosphorus Magnesium AST ALT Alkaline Phosphatase C-Reactive Protein Total Protein Albumin Triglycerides Ur Specific [place] Urine Creatinine Crossmatch 06/13/21 06/13/21 06/13/21 07:30 12:04 14:50 WBC RBC Hgb Hct MCV MCH RDW Plt Count Lymph % (Auto) [place] % (Auto) Lymph # (Auto) [place] # (Auto) Seg Neutrophils % Seg Neuts % (Manual) Lymphocytes % (Manual) Monocytes % (Manual) Seg Neutrophils # Seg Neutrophils # Man Lymphocytes # (Manual) Monocytes # (Manual) PT INR APTT Fibrinogen D-Dimer ABG pH 7.039 L* 7.182 L* POC ABG pCO2 POC ABG pO2 ABG pO2 63.1 L ABG HCO3 17.4 L ABG O2 Saturation 73.4 L ABG Base Excess -12.6 L -7.1 L ABG Hemoglobin 7.7 L 6.9 L ABG Oxyhemoglobin Oxyhemoglobin 71.8 L 93.5 L Sodium Potassium Chloride 108.9 H Carbon Dioxide BUN 28 H Creatinine Glucose 293 H POC Glucose Lactic Acid Calcium 7.2 L Phosphorus Magnesium AST 106 H ALT 92 H Alkaline Phosphatase C-Reactive Protein Total Protein 5.6 L Albumin 3.3 L Triglycerides Ur Specific [place] Urine Creatinine Crossmatch 06/13/21 06/13/21 06/13/21 14:54 15:45 17:34 WBC RBC Hgb Hct MCV MCH RDW Plt Count Lymph % (Auto) [place] % (Auto) Lymph # (Auto) [place] # (Auto) Seg Neutrophils % Seg Neuts % (Manual) Lymphocytes % (Manual) Monocytes % (Manual) Seg Neutrophils # Seg Neutrophils # Man Lymphocytes # (Manual) Monocytes # (Manual) PT INR APTT Fibrinogen D-Dimer ABG pH POC ABG pCO2 POC ABG pO2 ABG pO2 178.4 H ABG HCO3 ABG O2 Saturation 99.1 H ABG Base Excess ABG Hemoglobin 8.0 L ABG Oxyhemoglobin Oxyhemoglobin Sodium Potassium Chloride 107.3 H Carbon Dioxide 19 L BUN 33 H Creatinine 1.5 H Glucose 379 H POC Glucose Lactic Acid 5.30 H* Calcium 6.8 L Phosphorus Magnesium AST ALT Alkaline Phosphatase C-Reactive Protein Total Protein Albumin Triglycerides Ur Specific [place] Urine Creatinine Crossmatch 06/13/21 06/13/21 06/13/21 17:40 23:29 Unknown WBC 22.5 H RBC 3.16 L Hgb 8.0 L Hct 26.0 L MCV MCH 26 L RDW 21.4 H Plt Count Lymph % (Auto) [place] % (Auto) Lymph # (Auto) [place] # (Auto) Seg Neutrophils % Seg Neuts % (Manual) 88.0 H Lymphocytes % (Manual) 4.0 L Monocytes % (Manual) Seg Neutrophils # Seg Neutrophils # Man 19.8 H Lymphocytes # (Manual) 0.9 L Monocytes # (Manual) 1.4 H PT INR APTT Fibrinogen D-Dimer ABG pH POC ABG pCO2 POC ABG pO2 ABG pO2 ABG HCO3 ABG O2 Saturation ABG Base Excess ABG Hemoglobin ABG Oxyhemoglobin Oxyhemoglobin Sodium Potassium Chloride Carbon Dioxide BUN Creatinine Glucose POC Glucose 294 H 288 H Lactic Acid Calcium Phosphorus Magnesium AST ALT Alkaline Phosphatase C-Reactive Protein Total Protein Albumin Triglycerides Ur Specific [place] Urine Creatinine Crossmatch 06/13/21 06/14/21 06/14/21 Unknown 05:39 06:15 WBC RBC 2.93 L Hgb 7.2 L Hct 23.2 L MCV MCH 25 L RDW 21.2 H Plt Count Lymph % (Auto) [place] % (Auto) Lymph # (Auto) [place] # (Auto) Seg Neutrophils % Seg Neuts % (Manual) Lymphocytes % (Manual) Monocytes % (Manual) Seg Neutrophils # Seg Neutrophils # Man Lymphocytes # (Manual) Monocytes # (Manual) PT 17.6 H INR 1.31 H APTT Fibrinogen 546 H D-Dimer 1244.63 H ABG pH POC ABG pCO2 POC ABG pO2 ABG pO2 ABG HCO3 ABG O2 Saturation ABG Base Excess ABG Hemoglobin ABG Oxyhemoglobin Oxyhemoglobin Sodium Potassium Chloride Carbon Dioxide BUN Creatinine Glucose POC Glucose 246 H Lactic Acid Calcium Phosphorus Magnesium AST ALT Alkaline Phosphatase C-Reactive Protein Total Protein Albumin Triglycerides Ur Specific [place] Urine Creatinine Crossmatch 0206/14/21 06/14/21 06:15 06:15 09:13 WBC RBC Hgb Hct MCV MCH RDW Plt Count Lymph % (Auto) [place] % (Auto) Lymph # (Auto) [place] # (Auto) Seg Neutrophils % Seg Neuts % (Manual) Lymphocytes % (Manual) Monocytes % (Manual) Seg Neutrophils # Seg Neutrophils # Man Lymphocytes # (Manual) Monocytes # (Manual) PT INR APTT Fibrinogen D-Dimer ABG pH POC ABG pCO2 POC ABG pO2 ABG pO2 183.0 H ABG HCO3 ABG O2 Saturation 99.2 H ABG Base Excess ABG Hemoglobin 6.6 L ABG Oxyhemoglobin Oxyhemoglobin Sodium 147 H Potassium Chloride 112.5 H Carbon Dioxide 21 L BUN 36 H Creatinine 1.4 H Glucose 281 H POC Glucose Lactic Acid Calcium 6.9 L Phosphorus Magnesium AST ALT Alkaline Phosphatase C-Reactive Protein Total Protein Albumin Triglycerides 189 H Ur Specific [place] Urine Creatinine Crossmatch 06/14/21 06/14/21 06/14/21 10:45 12:16 13:30 WBC RBC Hgb 7.1 L Hct 22.3 L MCV MCH RDW Plt Count Lymph % (Auto) [place] % (Auto) Lymph # (Auto) [place] # (Auto) Seg Neutrophils % Seg Neuts % (Manual) Lymphocytes % (Manual) Monocytes % (Manual) Seg Neutrophils # Seg Neutrophils # Man Lymphocytes # (Manual) Monocytes # (Manual) PT INR APTT Fibrinogen D-Dimer ABG pH 7.205 L POC ABG pCO2 POC ABG pO2 ABG pO2 261.3 H ABG HCO3 ABG O2 Saturation 99.4 H ABG Base Excess -7.2 L ABG Hemoglobin 7.6 L ABG Oxyhemoglobin Oxyhemoglobin Sodium Potassium Chloride Carbon Dioxide BUN Creatinine Glucose POC Glucose 174 H Lactic Acid Calcium Phosphorus Magnesium AST ALT Alkaline Phosphatase C-Reactive Protein Total Protein Albumin Triglycerides Ur Specific [place] Urine Creatinine Crossmatch 06/14/21 06/14/21 06/15/21 17:40 18:43 00:06 WBC RBC Hgb Hct MCV MCH RDW Plt Count Lymph % (Auto) [place] % (Auto) Lymph # (Auto) [place] # (Auto) Seg Neutrophils % Seg Neuts % (Manual) Lymphocytes % (Manual) Monocytes % (Manual) Seg Neutrophils # Seg Neutrophils # Man Lymphocytes # (Manual) Monocytes # (Manual) PT INR APTT Fibrinogen D-Dimer ABG pH 7.292 L POC ABG pCO2 POC ABG pO2 ABG pO2 78.8 L ABG HCO3 ABG O2 Saturation ABG Base Excess -5.0 L ABG Hemoglobin 9.1 L ABG Oxyhemoglobin Oxyhemoglobin 93.7 L Sodium Potassium Chloride Carbon Dioxide BUN Creatinine Glucose POC Glucose 182 H 144 H Lactic Acid Calcium Phosphorus Magnesium AST ALT Alkaline Phosphatase C-Reactive Protein Total Protein Albumin Triglycerides Ur Specific [place] Urine Creatinine Crossmatch 06/15/21 06/15/21 06/15/21 03:55 03:56 10:40 WBC RBC Hgb 8.4 L Hct 25.8 L MCV MCH RDW Plt Count Lymph % (Auto) [place] % (Auto) Lymph # (Auto) [place] # (Auto) Seg Neutrophils % Seg Neuts % (Manual) Lymphocytes % (Manual) Monocytes % (Manual) Seg Neutrophils # Seg Neutrophils # Man Lymphocytes # (Manual) Monocytes # (Manual) PT INR APTT Fibrinogen D-Dimer ABG pH POC ABG pCO2 POC ABG pO2 ABG pO2 ABG HCO3 ABG O2 Saturation ABG Base Excess ABG Hemoglobin ABG Oxyhemoglobin Oxyhemoglobin Sodium 147 H Potassium Chloride 112.2 H Carbon Dioxide 21 L BUN 47 H Creatinine 1.9 H Glucose 272 H POC Glucose Lactic Acid Calcium 7.3 L Phosphorus Magnesium AST 64 H ALT 106 H Alkaline Phosphatase C-Reactive Protein Total Protein 5.1 L Albumin 2.9 L Triglycerides Ur Specific [place] Urine Creatinine 81.1 H Crossmatch 06/15/21 06/15/21 06/15/21 11:46 17:16 23:17 WBC RBC Hgb Hct MCV MCH RDW Plt Count Lymph % (Auto) [place] % (Auto) Lymph # (Auto) [place] # (Auto) Seg Neutrophils % Seg Neuts % (Manual) Lymphocytes % (Manual) Monocytes % (Manual) Seg Neutrophils # Seg Neutrophils # Man Lymphocytes # (Manual) Monocytes # (Manual) PT INR APTT Fibrinogen D-Dimer ABG pH POC ABG pCO2 POC ABG pO2 ABG pO2 ABG HCO3 ABG O2 Saturation ABG Base Excess ABG Hemoglobin ABG Oxyhemoglobin Oxyhemoglobin Sodium Potassium Chloride Carbon Dioxide BUN Creatinine Glucose POC Glucose 271 H 268 H 264 H Lactic Acid Calcium Phosphorus Magnesium AST ALT Alkaline Phosphatase C-Reactive Protein Total Protein Albumin Triglycerides Ur Specific [place] Urine Creatinine Crossmatch 06/15/21 06/15/21 06/16/21 Unknown Unknown 04:32 WBC RBC 3.21 L 3.16 L Hgb 8.4 L 8.2 L Hct 26.1 L 25.4 L MCV MCH 26 L 26 L RDW 21.3 H 21.2 H Plt Count 105 L 118 L Lymph % (Auto) [place] % (Auto) Lymph # (Auto) [place] # (Auto) Seg Neutrophils % Seg Neuts % (Manual) Lymphocytes % (Manual) Monocytes % (Manual) Seg Neutrophils # Seg Neutrophils # Man Lymphocytes # (Manual) Monocytes # (Manual) PT INR APTT Fibrinogen D-Dimer ABG pH 7.465 H POC ABG pCO2 POC ABG pO2 ABG pO2 114.1 H ABG HCO3 ABG O2 Saturation ABG Base Excess ABG Hemoglobin 8.4 L ABG Oxyhemoglobin Oxyhemoglobin Sodium Potassium Chloride Carbon Dioxide BUN Creatinine Glucose POC Glucose Lactic Acid Calcium Phosphorus Magnesium AST ALT Alkaline Phosphatase C-Reactive Protein Total Protein Albumin Triglycerides Ur Specific [place] Urine Creatinine Crossmatch 06/16/21 06/16/21 06/16/21 04:32 04:32 05:08 WBC RBC Hgb Hct MCV MCH RDW Plt Count Lymph % (Auto) [place] % (Auto) Lymph # (Auto) [place] # (Auto) Seg Neutrophils % Seg Neuts % (Manual) Lymphocytes % (Manual) Monocytes % (Manual) Seg Neutrophils # Seg Neutrophils # Man Lymphocytes # (Manual) Monocytes # (Manual) PT INR APTT Fibrinogen D-Dimer ABG pH POC ABG pCO2 POC ABG pO2 ABG pO2 ABG HCO3 ABG O2 Saturation ABG Base Excess ABG Hemoglobin ABG Oxyhemoglobin Oxyhemoglobin Sodium 148 H Potassium 3.3 L Chloride 115.1 H Carbon Dioxide 21 L BUN 54 H Creatinine 1.6 H Glucose 367 H POC Glucose 356 H Lactic Acid Calcium 7.4 L Phosphorus Magnesium AST ALT Alkaline Phosphatase C-Reactive Protein 3.30 H Total Protein Albumin Triglycerides Ur Specific [place] Urine Creatinine Crossmatch 06/16/21 06/16/21 06/16/21 05:30 11:46 17:03 WBC RBC Hgb Hct MCV MCH RDW Plt Count Lymph % (Auto) [place] % (Auto) Lymph # (Auto) [place] # (Auto) Seg Neutrophils % Seg Neuts % (Manual) Lymphocytes % (Manual) Monocytes % (Manual) Seg Neutrophils # Seg Neutrophils # Man Lymphocytes # (Manual) Monocytes # (Manual) PT INR APTT Fibrinogen D-Dimer ABG pH 7.475 H POC ABG pCO2 POC ABG pO2 ABG pO2 171.8 H ABG HCO3 ABG O2 Saturation 99.1 H ABG Base Excess ABG Hemoglobin 11.7 L ABG Oxyhemoglobin Oxyhemoglobin Sodium Potassium Chloride Carbon Dioxide BUN Creatinine Glucose POC Glucose 309 H 345 H Lactic Acid Calcium Phosphorus Magnesium AST ALT Alkaline Phosphatase C-Reactive Protein Total Protein Albumin Triglycerides Ur Specific [place] Urine Creatinine Crossmatch 06/16/21 06/16/21 06/17/21 20:18 23:22 04:50 WBC RBC Hgb Hct MCV MCH RDW Plt Count Lymph % (Auto) [place] % (Auto) Lymph # (Auto) [place] # (Auto) Seg Neutrophils % Seg Neuts % (Manual) Lymphocytes % (Manual) Monocytes % (Manual) Seg Neutrophils # Seg Neutrophils # Man Lymphocytes # (Manual) Monocytes # (Manual) PT INR APTT Fibrinogen D-Dimer ABG pH 7.479 H POC ABG pCO2 POC ABG pO2 ABG pO2 143.1 H ABG HCO3 ABG O2 Saturation ABG Base Excess ABG Hemoglobin 10.0 L ABG Oxyhemoglobin Oxyhemoglobin Sodium Potassium Chloride Carbon Dioxide BUN Creatinine Glucose POC Glucose 325 H 315 H Lactic Acid Calcium Phosphorus Magnesium AST ALT Alkaline Phosphatase C-Reactive Protein Total Protein Albumin Triglycerides Ur Specific [place] Urine Creatinine Crossmatch 06/17/21 06/17/21 06/17/21 05:18 05:30 05:30 WBC RBC 3.17 L Hgb 8.2 L Hct 25.5 L MCV MCH 26 L RDW 21.2 H Plt Count 128 L Lymph % (Auto) [place] % (Auto) Lymph # (Auto) [place] # (Auto) Seg Neutrophils % Seg Neuts % (Manual) Lymphocytes % (Manual) Monocytes % (Manual) Seg Neutrophils # Seg Neutrophils # Man Lymphocytes # (Manual) Monocytes # (Manual) PT INR APTT Fibrinogen D-Dimer ABG pH POC ABG pCO2 POC ABG pO2 ABG pO2 ABG HCO3 ABG O2 Saturation ABG Base Excess ABG Hemoglobin ABG Oxyhemoglobin Oxyhemoglobin Sodium 148 H Potassium Chloride 113.7 H Carbon Dioxide 20 L BUN 57 H Creatinine 1.4 H Glucose 351 H POC Glucose 324 H Lactic Acid Calcium 8.0 L Phosphorus 2.30 L Magnesium AST ALT Alkaline Phosphatase C-Reactive Protein Total Protein Albumin Triglycerides Ur Specific [place] Urine Creatinine Crossmatch 06/17/21 06/17/21 06/17/21 11:49 17:43 21:42 WBC RBC Hgb Hct MCV MCH RDW Plt Count Lymph % (Auto) [place] % (Auto) Lymph # (Auto) [place] # (Auto) Seg Neutrophils % Seg Neuts % (Manual) Lymphocytes % (Manual) Monocytes % (Manual) Seg Neutrophils # Seg Neutrophils # Man Lymphocytes # (Manual) Monocytes # (Manual) PT INR APTT Fibrinogen D-Dimer ABG pH POC ABG pCO2 POC ABG pO2 ABG pO2 ABG HCO3 ABG O2 Saturation ABG Base Excess ABG Hemoglobin ABG Oxyhemoglobin Oxyhemoglobin Sodium Potassium Chloride Carbon Dioxide BUN Creatinine Glucose POC Glucose 305 H 307 H 286 H Lactic Acid Calcium Phosphorus Magnesium AST ALT Alkaline Phosphatase C-Reactive Protein Total Protein Albumin Triglycerides Ur Specific [place] Urine Creatinine Crossmatch 06/17/21 06/18/21 06/18/21 23:59 04:20 04:37 WBC RBC 3.53 L Hgb 9.1 L Hct 28.7 L MCV MCH 26 L RDW 21.3 H Plt Count Lymph % (Auto) [place] % (Auto) Lymph # (Auto) [place] # (Auto) Seg Neutrophils % Seg Neuts % (Manual) Lymphocytes % (Manual) Monocytes % (Manual) Seg Neutrophils # Seg Neutrophils # Man Lymphocytes # (Manual) Monocytes # (Manual) PT INR APTT Fibrinogen D-Dimer ABG pH 7.495 H POC ABG pCO2 POC ABG pO2 ABG pO2 108.3 H ABG HCO3 ABG O2 Saturation ABG Base Excess -2.1 L ABG Hemoglobin 10.0 L ABG Oxyhemoglobin Oxyhemoglobin Sodium Potassium Chloride Carbon Dioxide BUN Creatinine Glucose POC Glucose 264 H Lactic Acid Calcium Phosphorus Magnesium AST ALT Alkaline Phosphatase C-Reactive Protein Total Protein Albumin Triglycerides Ur Specific [place] Urine Creatinine Crossmatch 06/18/21 06/18/21 06/18/21 04:37 05:32 11:21 WBC RBC Hgb Hct MCV MCH RDW Plt Count Lymph % (Auto) [place] % (Auto) Lymph # (Auto) [place] # (Auto) Seg Neutrophils % Seg Neuts % (Manual) Lymphocytes % (Manual) Monocytes % (Manual) Seg Neutrophils # Seg Neutrophils # Man Lymphocytes # (Manual) Monocytes # (Manual) PT INR APTT Fibrinogen D-Dimer ABG pH POC ABG pCO2 POC ABG pO2 ABG pO2 ABG HCO3 ABG O2 Saturation ABG Base Excess ABG Hemoglobin ABG Oxyhemoglobin Oxyhemoglobin Sodium 148 H Potassium Chloride 114.7 H Carbon Dioxide BUN 59 H Creatinine 1.3 H Glucose 329 H POC Glucose 293 H 291 H Lactic Acid Calcium 8.1 L Phosphorus Magnesium AST ALT Alkaline Phosphatase C-Reactive Protein Total Protein Albumin Triglycerides Ur Specific [place] Urine Creatinine Crossmatch 06/18/21 06/18/21 06/19/21 18:21 21:46 00:15 WBC RBC Hgb Hct MCV MCH RDW Plt Count Lymph % (Auto) [place] % (Auto) Lymph # (Auto) [place] # (Auto) Seg Neutrophils % Seg Neuts % (Manual) Lymphocytes % (Manual) Monocytes % (Manual) Seg Neutrophils # Seg Neutrophils # Man Lymphocytes # (Manual) Monocytes # (Manual) PT INR APTT Fibrinogen D-Dimer ABG pH POC ABG pCO2 POC ABG pO2 ABG pO2 ABG HCO3 ABG O2 Saturation ABG Base Excess ABG Hemoglobin ABG Oxyhemoglobin Oxyhemoglobin Sodium Potassium Chloride Carbon Dioxide BUN Creatinine Glucose POC Glucose 239 H 259 H 310 H Lactic Acid Calcium Phosphorus Magnesium AST ALT Alkaline Phosphatase C-Reactive Protein Total Protein Albumin Triglycerides Ur Specific [place] Urine Creatinine Crossmatch 06/19/21 06/19/21 06/19/21 04:00 04:00 04:50 WBC RBC 3.64 L Hgb 9.1 L Hct 29.1 L MCV MCH 25 L RDW 21.5 H Plt Count Lymph % (Auto) [place] % (Auto) Lymph # (Auto) [place] # (Auto) Seg Neutrophils % Seg Neuts % (Manual) Lymphocytes % (Manual) Monocytes % (Manual) Seg Neutrophils # Seg Neutrophils # Man Lymphocytes # (Manual) Monocytes # (Manual) PT INR APTT Fibrinogen D-Dimer ABG pH POC ABG pCO2 POC ABG pO2 ABG pO2 78.9 L ABG HCO3 ABG O2 Saturation ABG Base Excess -3.2 L ABG Hemoglobin 7.6 L ABG Oxyhemoglobin Oxyhemoglobin Sodium 148 H Potassium Chloride 114.9 H Carbon Dioxide 19 L BUN 59 H Creatinine Glucose 345 H POC Glucose Lactic Acid Calcium 8.1 L Phosphorus 4.60 H D Magnesium 2.40 H AST ALT Alkaline Phosphatase C-Reactive Protein Total Protein Albumin Triglycerides Ur Specific [place] Urine Creatinine Crossmatch 06/19/21 06/19/21 06/19/21 06:28 11:11 17:20 WBC RBC Hgb Hct MCV MCH RDW Plt Count Lymph % (Auto) [place] % (Auto) Lymph # (Auto) [place] # (Auto) Seg Neutrophils % Seg Neuts % (Manual) Lymphocytes % (Manual) Monocytes % (Manual) Seg Neutrophils # Seg Neutrophils # Man Lymphocytes # (Manual) Monocytes # (Manual) PT 29.7 H INR 2.57 H APTT Fibrinogen D-Dimer ABG pH POC ABG pCO2 POC ABG pO2 ABG pO2 ABG HCO3 ABG O2 Saturation ABG Base Excess ABG Hemoglobin ABG Oxyhemoglobin Oxyhemoglobin Sodium Potassium Chloride Carbon Dioxide BUN Creatinine Glucose POC Glucose 279 H 275 H Lactic Acid Calcium Phosphorus Magnesium AST ALT Alkaline Phosphatase C-Reactive Protein Total Protein Albumin Triglycerides Ur Specific [place] Urine Creatinine Crossmatch 06/19/21 06/19/21 06/19/21 18:30 19:20 23:27 WBC RBC Hgb 8.0 L Hct 25.0 L MCV MCH RDW Plt Count Lymph % (Auto) [place] % (Auto) Lymph # (Auto) [place] # (Auto) Seg Neutrophils % Seg Neuts % (Manual) Lymphocytes % (Manual) Monocytes % (Manual) Seg Neutrophils # Seg Neutrophils # Man Lymphocytes # (Manual) Monocytes # (Manual) PT INR APTT Fibrinogen D-Dimer ABG pH POC ABG pCO2 POC ABG pO2 ABG pO2 ABG HCO3 ABG O2 Saturation ABG Base Excess ABG Hemoglobin ABG Oxyhemoglobin Oxyhemoglobin Sodium Potassium Chloride Carbon Dioxide BUN Creatinine Glucose POC Glucose 279 H 290 H Lactic Acid Calcium Phosphorus Magnesium AST ALT Alkaline Phosphatase C-Reactive Protein Total Protein Albumin Triglycerides Ur Specific [place] Urine Creatinine Crossmatch 06/20/21 06/20/21 06/20/21 00:00 04:33 04:33 WBC 22.3 H RBC 3.31 L Hgb 7.4 L 8.5 L Hct 22.5 L 26.5 L MCV MCH 26 L RDW 21.5 H Plt Count Lymph % (Auto) [place] % (Auto) Lymph # (Auto) [place] # (Auto) Seg Neutrophils % Seg Neuts % (Manual) Lymphocytes % (Manual) Monocytes % (Manual) Seg Neutrophils # Seg Neutrophils # Man Lymphocytes # (Manual) Monocytes # (Manual) PT INR APTT Fibrinogen D-Dimer ABG pH POC ABG pCO2 POC ABG pO2 ABG pO2 ABG HCO3 ABG O2 Saturation ABG Base Excess ABG Hemoglobin ABG Oxyhemoglobin Oxyhemoglobin Sodium 148 H Potassium Chloride 114.2 H Carbon Dioxide BUN 70 H Creatinine 1.4 H Glucose 313 H POC Glucose Lactic Acid Calcium 8.2 L Phosphorus Magnesium 2.50 H AST ALT Alkaline Phosphatase C-Reactive Protein Total Protein Albumin Triglycerides Ur Specific [place] Urine Creatinine Crossmatch 06/20/21 06/20/21 06/20/21 04:33 05:27 11:21 WBC RBC Hgb Hct MCV MCH RDW Plt Count Lymph % (Auto) [place] % (Auto) Lymph # (Auto) [place] # (Auto) Seg Neutrophils % Seg Neuts % (Manual) Lymphocytes % (Manual) Monocytes % (Manual) Seg Neutrophils # Seg Neutrophils # Man Lymphocytes # (Manual) Monocytes # (Manual) PT 18.3 H INR 1.37 H APTT Fibrinogen D-Dimer ABG pH POC ABG pCO2 POC ABG pO2 ABG pO2 ABG HCO3 ABG O2 Saturation ABG Base Excess ABG Hemoglobin ABG Oxyhemoglobin Oxyhemoglobin Sodium Potassium Chloride Carbon Dioxide BUN Creatinine Glucose POC Glucose 288 H 306 H Lactic Acid Calcium Phosphorus Magnesium AST ALT Alkaline Phosphatase C-Reactive Protein Total Protein Albumin Triglycerides Ur Specific [place] Urine Creatinine Crossmatch 06/20/21 06/20/21 06/20/21 12:23 15:56 18:20 WBC RBC Hgb 8.2 L 8.1 L Hct 25.9 L 25.5 L MCV MCH RDW Plt Count Lymph % (Auto) [place] % (Auto) Lymph # (Auto) [place] # (Auto) Seg Neutrophils % Seg Neuts % (Manual) Lymphocytes % (Manual) Monocytes % (Manual) Seg Neutrophils # Seg Neutrophils # Man Lymphocytes # (Manual) Monocytes # (Manual) PT INR APTT Fibrinogen D-Dimer ABG pH POC ABG pCO2 POC ABG pO2 ABG pO2 ABG HCO3 ABG O2 Saturation ABG Base Excess ABG Hemoglobin ABG Oxyhemoglobin Oxyhemoglobin Sodium Potassium Chloride Carbon Dioxide BUN Creatinine Glucose POC Glucose 293 H Lactic Acid Calcium Phosphorus Magnesium AST ALT Alkaline Phosphatase C-Reactive Protein Total Protein Albumin Triglycerides Ur Specific [place] Urine Creatinine Crossmatch 06/20/21 06/21/21 06/21/21 23:11 04:20 04:42 WBC 15.1 H RBC 2.84 L Hgb 7.3 L Hct 23.1 L MCV MCH 26 L RDW 21.5 H Plt Count Lymph % (Auto) 3.5 L [place] % (Auto) 11.7 H Lymph # (Auto) 0.5 L [place] # (Auto) 1.8 H Seg Neutrophils % 84.7 H Seg Neuts % (Manual) Lymphocytes % (Manual) Monocytes % (Manual) Seg Neutrophils # 12.8 H Seg Neutrophils # Man Lymphocytes # (Manual) Monocytes # (Manual) PT INR APTT Fibrinogen D-Dimer ABG pH POC ABG pCO2 POC ABG pO2 ABG pO2 98.5 H ABG HCO3 ABG O2 Saturation ABG Base Excess ABG Hemoglobin 7.2 L ABG Oxyhemoglobin Oxyhemoglobin Sodium Potassium Chloride Carbon Dioxide BUN Creatinine Glucose POC Glucose 206 H Lactic Acid Calcium Phosphorus Magnesium AST ALT Alkaline Phosphatase C-Reactive Protein Total Protein Albumin Triglycerides Ur Specific [place] Urine Creatinine Crossmatch 06/21/21 06/21/21 06/21/21 04:42 05:08 11:06 WBC RBC Hgb Hct MCV MCH RDW Plt Count Lymph % (Auto) [place] % (Auto) Lymph # (Auto) [place] # (Auto) Seg Neutrophils % Seg Neuts % (Manual) Lymphocytes % (Manual) Monocytes % (Manual) Seg Neutrophils # Seg Neutrophils # Man Lymphocytes # (Manual) Monocytes # (Manual) PT INR APTT Fibrinogen D-Dimer ABG pH POC ABG pCO2 POC ABG pO2 ABG pO2 ABG HCO3 ABG O2 Saturation ABG Base Excess ABG Hemoglobin ABG Oxyhemoglobin Oxyhemoglobin Sodium 151 H Potassium Chloride 117.2 H Carbon Dioxide 21 L BUN 75 H Creatinine 1.6 H Glucose 216 H POC Glucose 190 H 204 H Lactic Acid Calcium 7.9 L Phosphorus Magnesium 2.60 H AST ALT Alkaline Phosphatase C-Reactive Protein Total Protein Albumin Triglycerides 254 H Ur Specific [place] Urine Creatinine Crossmatch 06/21/21 06/21/21 06/21/21 14:00 16:42 21:52 WBC RBC Hgb 7.1 L 7.2 L Hct 22.0 L 22.1 L MCV MCH RDW Plt Count Lymph % (Auto) [place] % (Auto) Lymph # (Auto) [place] # (Auto) Seg Neutrophils % Seg Neuts % (Manual) Lymphocytes % (Manual) Monocytes % (Manual) Seg Neutrophils # Seg Neutrophils # Man Lymphocytes # (Manual) Monocytes # (Manual) PT INR APTT Fibrinogen D-Dimer ABG pH POC ABG pCO2 POC ABG pO2 ABG pO2 ABG HCO3 ABG O2 Saturation ABG Base Excess ABG Hemoglobin ABG Oxyhemoglobin Oxyhemoglobin Sodium Potassium Chloride Carbon Dioxide BUN Creatinine Glucose POC Glucose 207 H Lactic Acid Calcium Phosphorus Magnesium AST ALT Alkaline Phosphatase C-Reactive Protein Total Protein Albumin Triglycerides Ur Specific [place] Urine Creatinine Crossmatch 06/21/21 06/22/21 06/22/21 23:29 04:30 04:30 WBC 16.8 H RBC 2.93 L Hgb 7.4 L Hct 23.9 L MCV MCH 25 L RDW 21.8 H Plt Count Lymph % (Auto) [place] % (Auto) Lymph # (Auto) [place] # (Auto) Seg Neutrophils % Seg Neuts % (Manual) Lymphocytes % (Manual) Monocytes % (Manual) Seg Neutrophils # Seg Neutrophils # Man Lymphocytes # (Manual) Monocytes # (Manual) PT INR APTT Fibrinogen D-Dimer ABG pH POC ABG pCO2 POC ABG pO2 ABG pO2 ABG HCO3 ABG O2 Saturation ABG Base Excess ABG Hemoglobin ABG Oxyhemoglobin Oxyhemoglobin Sodium 151 H Potassium Chloride 118.7 H Carbon Dioxide BUN 57 H Creatinine Glucose 238 H POC Glucose 273 H Lactic Acid Calcium 8.0 L Phosphorus Magnesium 2.70 H AST ALT Alkaline Phosphatase C-Reactive Protein Total Protein Albumin Triglycerides Ur Specific [place] Urine Creatinine Crossmatch 06/22/21 06/22/21 06/22/21 05:17 11:31 14:20 WBC RBC Hgb 7.4 L Hct 22.5 L MCV MCH RDW Plt Count Lymph % (Auto) [place] % (Auto) Lymph # (Auto) [place] # (Auto) Seg Neutrophils % Seg Neuts % (Manual) Lymphocytes % (Manual) Monocytes % (Manual) Seg Neutrophils # Seg Neutrophils # Man Lymphocytes # (Manual) Monocytes # (Manual) PT INR APTT Fibrinogen D-Dimer ABG pH POC ABG pCO2 POC ABG pO2 ABG pO2 ABG HCO3 ABG O2 Saturation ABG Base Excess ABG Hemoglobin ABG Oxyhemoglobin Oxyhemoglobin Sodium Potassium Chloride Carbon Dioxide BUN Creatinine Glucose POC Glucose 214 H 214 H Lactic Acid Calcium Phosphorus Magnesium AST ALT Alkaline Phosphatase C-Reactive Protein Total Protein Albumin Triglycerides Ur Specific [place] Urine Creatinine Crossmatch 06/22/21 06/22/21 06/23/21 17:18 23:47 05:33 WBC RBC Hgb Hct MCV MCH RDW Plt Count Lymph % (Auto) [place] % (Auto) Lymph # (Auto) [place] # (Auto) Seg Neutrophils % Seg Neuts % (Manual) Lymphocytes % (Manual) Monocytes % (Manual) Seg Neutrophils # Seg Neutrophils # Man Lymphocytes # (Manual) Monocytes # (Manual) PT INR APTT Fibrinogen D-Dimer ABG pH POC ABG pCO2 POC ABG pO2 ABG pO2 ABG HCO3 ABG O2 Saturation ABG Base Excess ABG Hemoglobin ABG Oxyhemoglobin Oxyhemoglobin Sodium Potassium Chloride Carbon Dioxide BUN Creatinine Glucose POC Glucose 238 H 227 H 202 H Lactic Acid Calcium Phosphorus Magnesium AST ALT Alkaline Phosphatase C-Reactive Protein Total Protein Albumin Triglycerides Ur Specific [place] Urine Creatinine Crossmatch 06/23/21 06/23/21 06/23/21 10:04 10:04 11:06 WBC 20.3 H RBC 2.71 L Hgb 7.3 L Hct 21.8 L MCV MCH 27 L RDW 22.1 H Plt Count Lymph % (Auto) [place] % (Auto) Lymph # (Auto) [place] # (Auto) Seg Neutrophils % Seg Neuts % (Manual) Lymphocytes % (Manual) Monocytes % (Manual) Seg Neutrophils # Seg Neutrophils # Man Lymphocytes # (Manual) Monocytes # (Manual) PT INR APTT Fibrinogen D-Dimer ABG pH POC ABG pCO2 POC ABG pO2 ABG pO2 ABG HCO3 ABG O2 Saturation ABG Base Excess ABG Hemoglobin ABG Oxyhemoglobin Oxyhemoglobin Sodium 151 H Potassium 3.2 L Chloride 116.9 H Carbon Dioxide BUN 40 H Creatinine Glucose 208 H POC Glucose 204 H Lactic Acid Calcium 8.0 L Phosphorus 1.80 L D Magnesium AST ALT Alkaline Phosphatase C-Reactive Protein Total Protein Albumin Triglycerides Ur Specific [place] Urine Creatinine Crossmatch 06/23/21 06/23/21 06/24/21 16:11 23:47 04:00 WBC 16.9 H RBC 2.49 L Hgb 6.6 L Hct 20.3 L MCV MCH 26 L RDW 22.6 H Plt Count Lymph % (Auto) [place] % (Auto) Lymph # (Auto) [place] # (Auto) Seg Neutrophils % Seg Neuts % (Manual) Lymphocytes % (Manual) Monocytes % (Manual) Seg Neutrophils # Seg Neutrophils # Man Lymphocytes # (Manual) Monocytes # (Manual) PT INR APTT Fibrinogen D-Dimer ABG pH POC ABG pCO2 POC ABG pO2 ABG pO2 ABG HCO3 ABG O2 Saturation ABG Base Excess ABG Hemoglobin ABG Oxyhemoglobin Oxyhemoglobin Sodium Potassium Chloride Carbon Dioxide BUN Creatinine Glucose POC Glucose 228 H 189 H Lactic Acid Calcium Phosphorus Magnesium AST ALT Alkaline Phosphatase C-Reactive Protein Total Protein Albumin Triglycerides Ur Specific [place] Urine Creatinine Crossmatch 06/24/21 06/24/21 06/24/21 04:00 05:43 06:40 WBC RBC Hgb Hct MCV MCH RDW Plt Count Lymph % (Auto) [place] % (Auto) Lymph # (Auto) [place] # (Auto) Seg Neutrophils % Seg Neuts % (Manual) Lymphocytes % (Manual) Monocytes % (Manual) Seg Neutrophils # Seg Neutrophils # Man Lymphocytes # (Manual) Monocytes # (Manual) PT INR APTT Fibrinogen D-Dimer ABG pH POC ABG pCO2 POC ABG pO2 ABG pO2 ABG HCO3 ABG O2 Saturation ABG Base Excess ABG Hemoglobin ABG Oxyhemoglobin Oxyhemoglobin Sodium 148 H Potassium 3.2 L Chloride 115.6 H Carbon Dioxide BUN 35 H Creatinine Glucose 153 H POC Glucose 134 H Lactic Acid Calcium 7.9 L Phosphorus 2.40 L D Magnesium AST ALT Alkaline Phosphatase C-Reactive Protein Total Protein Albumin Triglycerides Ur Specific [place] Urine Creatinine Crossmatch See Detail 06/24/21 06/24/21 06/24/21 11:08 16:47 21:49 WBC RBC Hgb Hct MCV MCH RDW Plt Count Lymph % (Auto) [place] % (Auto) Lymph # (Auto) [place] # (Auto) Seg Neutrophils % Seg Neuts % (Manual) Lymphocytes % (Manual) Monocytes % (Manual) Seg Neutrophils # Seg Neutrophils # Man Lymphocytes # (Manual) Monocytes # (Manual) PT INR APTT Fibrinogen D-Dimer ABG pH POC ABG pCO2 POC ABG pO2 ABG pO2 ABG HCO3 ABG O2 Saturation ABG Base Excess ABG Hemoglobin ABG Oxyhemoglobin Oxyhemoglobin Sodium Potassium Chloride Carbon Dioxide BUN Creatinine Glucose POC Glucose 153 H 201 H 132 H Lactic Acid Calcium Phosphorus Magnesium AST ALT Alkaline Phosphatase C-Reactive Protein Total Protein Albumin Triglycerides Ur Specific [place] Urine Creatinine Crossmatch 06/24/21 06/25/21 06/25/21 23:24 05:30 09:00 WBC RBC Hgb 8.3 L Hct 27.0 L MCV MCH RDW Plt Count Lymph % (Auto) [place] % (Auto) Lymph # (Auto) [place] # (Auto) Seg Neutrophils % Seg Neuts % (Manual) Lymphocytes % (Manual) Monocytes % (Manual) Seg Neutrophils # Seg Neutrophils # Man Lymphocytes # (Manual) Monocytes # (Manual) PT INR APTT Fibrinogen D-Dimer ABG pH POC ABG pCO2 POC ABG pO2 ABG pO2 ABG HCO3 ABG O2 Saturation ABG Base Excess ABG Hemoglobin ABG Oxyhemoglobin Oxyhemoglobin Sodium Potassium Chloride Carbon Dioxide BUN Creatinine Glucose POC Glucose 170 H 151 H Lactic Acid Calcium Phosphorus Magnesium AST ALT Alkaline Phosphatase C-Reactive Protein Total Protein Albumin Triglycerides Ur Specific [place] Urine Creatinine Crossmatch 06/25/21 06/25/21 06/25/21 11:29 14:24 16:48 WBC RBC Hgb 8.5 L Hct 27.5 L MCV MCH RDW Plt Count Lymph % (Auto) [place] % (Auto) Lymph # (Auto) [place] # (Auto) Seg Neutrophils % Seg Neuts % (Manual) Lymphocytes % (Manual) Monocytes % (Manual) Seg Neutrophils # Seg Neutrophils # Man Lymphocytes # (Manual) Monocytes # (Manual) PT INR APTT Fibrinogen D-Dimer ABG pH POC ABG pCO2 POC ABG pO2 ABG pO2 ABG HCO3 ABG O2 Saturation ABG Base Excess ABG Hemoglobin ABG Oxyhemoglobin Oxyhemoglobin Sodium Potassium Chloride Carbon Dioxide BUN Creatinine Glucose POC Glucose 189 H 224 H Lactic Acid Calcium Phosphorus Magnesium AST ALT Alkaline Phosphatase C-Reactive Protein Total Protein Albumin Triglycerides Ur Specific [place] Urine Creatinine Crossmatch 06/25/21 06/25/21 06/25/21 23:39 Unknown Unknown WBC 16.5 H RBC 2.90 L Hgb 8.0 L Hct 23.8 L MCV MCH RDW 22.8 H Plt Count Lymph % (Auto) [place] % (Auto) Lymph # (Auto) [place] # (Auto) Seg Neutrophils % Seg Neuts % (Manual) Lymphocytes % (Manual) Monocytes % (Manual) Seg Neutrophils # Seg Neutrophils # Man Lymphocytes # (Manual) Monocytes # (Manual) PT INR APTT Fibrinogen D-Dimer ABG pH POC ABG pCO2 POC ABG pO2 ABG pO2 ABG HCO3 ABG O2 Saturation ABG Base Excess ABG Hemoglobin ABG Oxyhemoglobin Oxyhemoglobin Sodium 149 H Potassium Chloride 115.6 H Carbon Dioxide BUN 28 H Creatinine Glucose 157 H POC Glucose 187 H Lactic Acid Calcium 8.0 L Phosphorus Magnesium AST ALT Alkaline Phosphatase C-Reactive Protein Total Protein Albumin Triglycerides Ur Specific [place] Urine Creatinine Crossmatch 06/26/21 06/26/21 06/26/21 05:22 05:29 05:29 WBC 16.2 H RBC 3.03 L Hgb 8.0 L Hct 25.1 L MCV MCH 26 L RDW 23.2 H Plt Count Lymph % (Auto) [place] % (Auto) Lymph # (Auto) [place] # (Auto) Seg Neutrophils % Seg Neuts % (Manual) Lymphocytes % (Manual) Monocytes % (Manual) Seg Neutrophils # Seg Neutrophils # Man Lymphocytes # (Manual) Monocytes # (Manual) PT INR APTT Fibrinogen D-Dimer ABG pH POC ABG pCO2 POC ABG pO2 ABG pO2 ABG HCO3 ABG O2 Saturation ABG Base Excess ABG Hemoglobin ABG Oxyhemoglobin Oxyhemoglobin Sodium 150 H Potassium Chloride 114.8 H Carbon Dioxide BUN 29 H Creatinine Glucose 229 H POC Glucose 211 H Lactic Acid Calcium 8.2 L Phosphorus Magnesium AST ALT Alkaline Phosphatase C-Reactive Protein Total Protein Albumin Triglycerides Ur Specific [place] Urine Creatinine Crossmatch 06/26/21 06/26/21 06/26/21 11:05 15:59 22:00 WBC RBC Hgb Hct MCV MCH RDW Plt Count Lymph % (Auto) [place] % (Auto) Lymph # (Auto) [place] # (Auto) Seg Neutrophils % Seg Neuts % (Manual) Lymphocytes % (Manual) Monocytes % (Manual) Seg Neutrophils # Seg Neutrophils # Man Lymphocytes # (Manual) Monocytes # (Manual) PT INR APTT Fibrinogen D-Dimer ABG pH POC ABG pCO2 POC ABG pO2 ABG pO2 ABG HCO3 ABG O2 Saturation ABG Base Excess ABG Hemoglobin ABG Oxyhemoglobin Oxyhemoglobin Sodium Potassium Chloride Carbon Dioxide BUN Creatinine Glucose POC Glucose 213 H 222 H 161 H Lactic Acid Calcium Phosphorus Magnesium AST ALT Alkaline Phosphatase C-Reactive Protein Total Protein Albumin Triglycerides Ur Specific [place] Urine Creatinine Crossmatch 06/26/21 06/27/21 06/27/21 23:24 04:15 04:15 WBC 14.3 H RBC 2.96 L Hgb 8.1 L Hct 24.6 L MCV MCH 27 L RDW 23.0 H Plt Count Lymph % (Auto) [place] % (Auto) Lymph # (Auto) [place] # (Auto) Seg Neutrophils % Seg Neuts % (Manual) Lymphocytes % (Manual) Monocytes % (Manual) Seg Neutrophils # Seg Neutrophils # Man Lymphocytes # (Manual) Monocytes # (Manual) PT INR APTT Fibrinogen D-Dimer ABG pH POC ABG pCO2 POC ABG pO2 ABG pO2 ABG HCO3 ABG O2 Saturation ABG Base Excess ABG Hemoglobin ABG Oxyhemoglobin Oxyhemoglobin Sodium 150 H Potassium Chloride 113.8 H Carbon Dioxide BUN 26 H Creatinine Glucose 246 H POC Glucose 164 H Lactic Acid Calcium 7.8 L Phosphorus Magnesium AST ALT Alkaline Phosphatase C-Reactive Protein Total Protein Albumin Triglycerides Ur Specific [place] Urine Creatinine Crossmatch 06/27/21 06/27/21 06/27/21 05:44 11:07 16:06 WBC RBC Hgb Hct MCV MCH RDW Plt Count Lymph % (Auto) [place] % (Auto) Lymph # (Auto) [place] # (Auto) Seg Neutrophils % Seg Neuts % (Manual) Lymphocytes % (Manual) Monocytes % (Manual) Seg Neutrophils # Seg Neutrophils # Man Lymphocytes # (Manual) Monocytes # (Manual) PT INR APTT Fibrinogen D-Dimer ABG pH POC ABG pCO2 POC ABG pO2 ABG pO2 ABG HCO3 ABG O2 Saturation ABG Base Excess ABG Hemoglobin ABG Oxyhemoglobin Oxyhemoglobin Sodium Potassium Chloride Carbon Dioxide BUN Creatinine Glucose POC Glucose 226 H 204 H 224 H Lactic Acid Calcium Phosphorus Magnesium AST ALT Alkaline Phosphatase C-Reactive Protein Total Protein Albumin Triglycerides Ur Specific [place] Urine Creatinine Crossmatch 06/27/21 06/28/21 06/28/21 23:49 04:00 04:00 WBC 15.4 H RBC 3.05 L Hgb 8.2 L Hct 25.0 L MCV MCH 27 L RDW 22.6 H Plt Count Lymph % (Auto) [place] % (Auto) Lymph # (Auto) [place] # (Auto) Seg Neutrophils % Seg Neuts % (Manual) Lymphocytes % (Manual) Monocytes % (Manual) Seg Neutrophils # Seg Neutrophils # Man Lymphocytes # (Manual) Monocytes # (Manual) PT INR APTT Fibrinogen D-Dimer ABG pH POC ABG pCO2 POC ABG pO2 ABG pO2 ABG HCO3 ABG O2 Saturation ABG Base Excess ABG Hemoglobin ABG Oxyhemoglobin Oxyhemoglobin Sodium 152 H Potassium 3.0 L Chloride 114.9 H Carbon Dioxide BUN 24 H Creatinine Glucose 158 H POC Glucose 195 H Lactic Acid Calcium 8.1 L Phosphorus Magnesium AST ALT Alkaline Phosphatase C-Reactive Protein Total Protein Albumin Triglycerides Ur Specific [place] Urine Creatinine Crossmatch 06/28/21 06/28/21 06/28/21 05:05 11:47 17:21 WBC RBC Hgb Hct MCV MCH RDW Plt Count Lymph % (Auto) [place] % (Auto) Lymph # (Auto) [place] # (Auto) Seg Neutrophils % Seg Neuts % (Manual) Lymphocytes % (Manual) Monocytes % (Manual) Seg Neutrophils # Seg Neutrophils # Man Lymphocytes # (Manual) Monocytes # (Manual) PT INR APTT Fibrinogen D-Dimer ABG pH POC ABG pCO2 POC ABG pO2 ABG pO2 ABG HCO3 ABG O2 Saturation ABG Base Excess ABG Hemoglobin ABG Oxyhemoglobin Oxyhemoglobin Sodium Potassium Chloride Carbon Dioxide BUN Creatinine Glucose POC Glucose 121 H 164 H 166 H Lactic Acid Calcium Phosphorus Magnesium AST ALT Alkaline Phosphatase C-Reactive Protein Total Protein Albumin Triglycerides Ur Specific [place] Urine Creatinine Crossmatch 06/28/21 06/28/21 06/29/21 18:14 21:54 00:55 WBC RBC Hgb Hct MCV MCH RDW Plt Count Lymph % (Auto) [place] % (Auto) Lymph # (Auto) [place] # (Auto) Seg Neutrophils % Seg Neuts % (Manual) Lymphocytes % (Manual) Monocytes % (Manual) Seg Neutrophils # Seg Neutrophils # Man Lymphocytes # (Manual) Monocytes # (Manual) PT INR APTT Fibrinogen D-Dimer ABG pH POC ABG pCO2 POC ABG pO2 ABG pO2 ABG HCO3 ABG O2 Saturation ABG Base Excess ABG Hemoglobin ABG Oxyhemoglobin Oxyhemoglobin Sodium Potassium Chloride Carbon Dioxide BUN Creatinine Glucose POC Glucose 150 H 148 H 176 H Lactic Acid Calcium Phosphorus Magnesium AST ALT Alkaline Phosphatase C-Reactive Protein Total Protein Albumin Triglycerides Ur Specific [place] Urine Creatinine Crossmatch 06/29/21 06/29/21 06/29/21 04:00 04:00 05:20 WBC 15.3 H RBC 3.04 L Hgb 8.0 L Hct 25.0 L MCV MCH 26 L RDW 22.3 H Plt Count Lymph % (Auto) [place] % (Auto) Lymph # (Auto) [place] # (Auto) Seg Neutrophils % Seg Neuts % (Manual) Lymphocytes % (Manual) Monocytes % (Manual) Seg Neutrophils # Seg Neutrophils # Man Lymphocytes # (Manual) Monocytes # (Manual) PT INR APTT Fibrinogen D-Dimer ABG pH POC ABG pCO2 POC ABG pO2 ABG pO2 ABG HCO3 ABG O2 Saturation ABG Base Excess ABG Hemoglobin ABG Oxyhemoglobin Oxyhemoglobin Sodium Potassium 3.1 L Chloride 108.7 H Carbon Dioxide BUN 20 H Creatinine Glucose 194 H POC Glucose 185 H Lactic Acid Calcium 8.0 L Phosphorus Magnesium AST ALT Alkaline Phosphatase C-Reactive Protein Total Protein Albumin Triglycerides Ur Specific [place] Urine Creatinine Crossmatch 06/29/21 06/29/21 06/30/21 12:18 17:20 00:49 WBC RBC Hgb Hct MCV MCH RDW Plt Count Lymph % (Auto) [place] % (Auto) Lymph # (Auto) [place] # (Auto) Seg Neutrophils % Seg Neuts % (Manual) Lymphocytes % (Manual) Monocytes % (Manual) Seg Neutrophils # Seg Neutrophils # Man Lymphocytes # (Manual) Monocytes # (Manual) PT INR APTT Fibrinogen D-Dimer ABG pH POC ABG pCO2 POC ABG pO2 ABG pO2 ABG HCO3 ABG O2 Saturation ABG Base Excess ABG Hemoglobin ABG Oxyhemoglobin Oxyhemoglobin Sodium Potassium Chloride Carbon Dioxide BUN Creatinine Glucose POC Glucose 135 H 185 H 156 H Lactic Acid Calcium Phosphorus Magnesium AST ALT Alkaline Phosphatase C-Reactive Protein Total Protein Albumin Triglycerides Ur Specific [place] Urine Creatinine Crossmatch 06/30/21 06/30/21 06/30/21 04:25 04:25 08:14 WBC 13.0 H RBC 3.19 L Hgb 8.2 L Hct 26.2 L MCV MCH 26 L RDW 22.3 H Plt Count Lymph % (Auto) [place] % (Auto) Lymph # (Auto) [place] # (Auto) Seg Neutrophils % Seg Neuts % (Manual) 81.0 H Lymphocytes % (Manual) 10.0 L Monocytes % (Manual) 8.0 H Seg Neutrophils # Seg Neutrophils # Man 10.5 H Lymphocytes # (Manual) Monocytes # (Manual) 1.0 H PT INR APTT Fibrinogen D-Dimer ABG pH POC ABG pCO2 POC ABG pO2 ABG pO2 ABG HCO3 ABG O2 Saturation ABG Base Excess ABG Hemoglobin ABG Oxyhemoglobin Oxyhemoglobin Sodium Potassium 3.0 L Chloride Carbon Dioxide BUN 20 H Creatinine Glucose 104 H POC Glucose 119 H Lactic Acid Calcium 8.3 L Phosphorus Magnesium AST ALT Alkaline Phosphatase C-Reactive Protein Total Protein Albumin Triglycerides Ur Specific [place] Urine Creatinine Crossmatch 06/30/21 06/30/21 06/30/21 11:36 16:24 22:44 WBC RBC Hgb Hct MCV MCH RDW Plt Count Lymph % (Auto) [place] % (Auto) Lymph # (Auto) [place] # (Auto) Seg Neutrophils % Seg Neuts % (Manual) Lymphocytes % (Manual) Monocytes % (Manual) Seg Neutrophils # Seg Neutrophils # Man Lymphocytes # (Manual) Monocytes # (Manual) PT INR APTT Fibrinogen D-Dimer ABG pH POC ABG pCO2 POC ABG pO2 ABG pO2 ABG HCO3 ABG O2 Saturation ABG Base Excess ABG Hemoglobin ABG Oxyhemoglobin Oxyhemoglobin Sodium Potassium Chloride Carbon Dioxide BUN Creatinine Glucose POC Glucose 154 H 208 H 174 H Lactic Acid Calcium Phosphorus Magnesium AST ALT Alkaline Phosphatase C-Reactive Protein Total Protein Albumin Triglycerides Ur Specific [place] Urine Creatinine Crossmatch 07/01/21 07/01/21 07/01/21 05:29 05:29 05:54 WBC 11.9 H RBC 3.00 L Hgb 8.1 L Hct 24.4 L MCV MCH 27 L RDW 21.7 H Plt Count Lymph % (Auto) [place] % (Auto) Lymph # (Auto) [place] # (Auto) Seg Neutrophils % Seg Neuts % (Manual) Lymphocytes % (Manual) Monocytes % (Manual) Seg Neutrophils # Seg Neutrophils # Man Lymphocytes # (Manual) Monocytes # (Manual) PT INR APTT Fibrinogen D-Dimer ABG pH POC ABG pCO2 POC ABG pO2 ABG pO2 ABG HCO3 ABG O2 Saturation ABG Base Excess ABG Hemoglobin ABG Oxyhemoglobin Oxyhemoglobin Sodium Potassium Chloride Carbon Dioxide BUN Creatinine Glucose 177 H POC Glucose 170 H Lactic Acid Calcium Phosphorus Magnesium AST ALT Alkaline Phosphatase C-Reactive Protein Total Protein Albumin Triglycerides Ur Specific [place] Urine Creatinine Crossmatch 07/01/21 07/02/21 07/02/21 10:54 05:05 10:18 WBC RBC Hgb Hct MCV MCH RDW Plt Count Lymph % (Auto) [place] % (Auto) Lymph # (Auto) [place] # (Auto) Seg Neutrophils % Seg Neuts % (Manual) Lymphocytes % (Manual) Monocytes % (Manual) Seg Neutrophils # Seg Neutrophils # Man Lymphocytes # (Manual) Monocytes # (Manual) PT INR APTT Fibrinogen D-Dimer ABG pH 7.488 H POC ABG pCO2 POC ABG pO2 ABG pO2 97.2 H ABG HCO3 27.1 H ABG O2 Saturation ABG Base Excess 3.5 H ABG Hemoglobin 7.9 L ABG Oxyhemoglobin Oxyhemoglobin Sodium Potassium Chloride Carbon Dioxide BUN Creatinine Glucose POC Glucose 184 H 182 H Lactic Acid Calcium Phosphorus Magnesium AST ALT Alkaline Phosphatase C-Reactive Protein Total Protein Albumin Triglycerides Ur Specific [place] Urine Creatinine Crossmatch 07/02/21 07/02/21 07/02/21 12:14 16:18 22:27 WBC RBC Hgb Hct MCV MCH RDW Plt Count Lymph % (Auto) [place] % (Auto) Lymph # (Auto) [place] # (Auto) Seg Neutrophils % Seg Neuts % (Manual) Lymphocytes % (Manual) Monocytes % (Manual) Seg Neutrophils # Seg Neutrophils # Man Lymphocytes # (Manual) Monocytes # (Manual) PT INR APTT Fibrinogen D-Dimer ABG pH 7.199 L* POC ABG pCO2 POC ABG pO2 ABG pO2 104.5 H ABG HCO3 30.3 H ABG O2 Saturation ABG Base Excess ABG Hemoglobin 9.8 L ABG Oxyhemoglobin Oxyhemoglobin 94.6 L Sodium Potassium Chloride Carbon Dioxide BUN Creatinine Glucose POC Glucose 184 H 194 H Lactic Acid Calcium Phosphorus Magnesium AST ALT Alkaline Phosphatase C-Reactive Protein Total Protein Albumin Triglycerides Ur Specific [place] Urine Creatinine Crossmatch 07/03/21 07/03/21 07/03/21 09:47 10:44 11:24 WBC RBC 3.01 L Hgb 8.3 L Hct 24.3 L MCV MCH RDW 21.7 H Plt Count Lymph % (Auto) 8.4 L [place] % (Auto) Lymph # (Auto) 0.8 L [place] # (Auto) Seg Neutrophils % 80.6 H Seg Neuts % (Manual) Lymphocytes % (Manual) Monocytes % (Manual) Seg Neutrophils # Seg Neutrophils # Man Lymphocytes # (Manual) Monocytes # (Manual) PT INR APTT Fibrinogen D-Dimer ABG pH POC ABG pCO2 POC ABG pO2 ABG pO2 ABG HCO3 ABG O2 Saturation ABG Base Excess ABG Hemoglobin ABG Oxyhemoglobin Oxyhemoglobin Sodium Potassium 3.0 L Chloride Carbon Dioxide BUN Creatinine Glucose 200 H POC Glucose 180 H Lactic Acid Calcium 8.3 L Phosphorus Magnesium AST ALT Alkaline Phosphatase C-Reactive Protein Total Protein Albumin Triglycerides Ur Specific [place] Urine Creatinine Crossmatch 07/03/21 07/03/21 07/03/21 16:34 22:14 22:15 WBC RBC Hgb Hct MCV MCH RDW Plt Count Lymph % (Auto) [place] % (Auto) Lymph # (Auto) [place] # (Auto) Seg Neutrophils % Seg Neuts % (Manual) Lymphocytes % (Manual) Monocytes % (Manual) Seg Neutrophils # Seg Neutrophils # Man Lymphocytes # (Manual) Monocytes # (Manual) PT INR APTT Fibrinogen D-Dimer ABG pH POC ABG pCO2 POC ABG pO2 ABG pO2 ABG HCO3 ABG O2 Saturation ABG Base Excess ABG Hemoglobin ABG Oxyhemoglobin Oxyhemoglobin Sodium Potassium Chloride Carbon Dioxide BUN Creatinine Glucose POC Glucose 165 H 174 H 180 H Lactic Acid Calcium Phosphorus Magnesium AST ALT Alkaline Phosphatase C-Reactive Protein Total Protein Albumin Triglycerides Ur Specific [place] Urine Creatinine Crossmatch 07/04/21 07/04/21 07/04/21 00:28 01:44 05:07 WBC RBC Hgb Hct MCV MCH RDW Plt Count Lymph % (Auto) [place] % (Auto) Lymph # (Auto) [place] # (Auto) Seg Neutrophils % Seg Neuts % (Manual) Lymphocytes % (Manual) Monocytes % (Manual) Seg Neutrophils # Seg Neutrophils # Man Lymphocytes # (Manual) Monocytes # (Manual) PT INR APTT Fibrinogen D-Dimer ABG pH POC ABG pCO2 POC ABG pO2 ABG pO2 107.7 H ABG HCO3 26.7 H ABG O2 Saturation ABG Base Excess ABG Hemoglobin 7.5 L ABG Oxyhemoglobin Oxyhemoglobin Sodium Potassium Chloride Carbon Dioxide BUN Creatinine Glucose POC Glucose 246 H 179 H Lactic Acid Calcium Phosphorus Magnesium AST ALT Alkaline Phosphatase C-Reactive Protein Total Protein Albumin Triglycerides Ur Specific [place] Urine Creatinine Crossmatch 07/04/21 07/04/21 05:13 05:13 WBC RBC 3.12 L Hgb 8.5 L Hct 25.2 L MCV MCH 27 L RDW 21.3 H Plt Count Lymph % (Auto) 6.1 L [place] % (Auto) Lymph # (Auto) 0.6 L [place] # (Auto) Seg Neutrophils % 85.0 H Seg Neuts % (Manual) Lymphocytes % (Manual) Monocytes % (Manual) Seg Neutrophils # 8.0 H Seg Neutrophils # Man Lymphocytes # (Manual) Monocytes # (Manual) PT INR APTT Fibrinogen D-Dimer ABG pH POC ABG pCO2 POC ABG pO2 ABG pO2 ABG HCO3 ABG O2 Saturation ABG Base Excess ABG Hemoglobin ABG Oxyhemoglobin Oxyhemoglobin Sodium Potassium 3.4 L Chloride Carbon Dioxide BUN Creatinine Glucose 205 H POC Glucose Lactic Acid Calcium Phosphorus Magnesium AST ALT Alkaline Phosphatase C-Reactive Protein Total Protein Albumin Triglycerides Ur Specific [place] Urine Creatinine Crossmatch
[2021-07-04] MEDS: HYDROcodone/ACETAMINOPHEN 5-325 MG TAB PO PRN ×2 (10:05→18:46)
--- NOTE | 2021-07-04 11:39 | Progress Note ---
<VIOLETTE DEMPSEY - Last Filed: 07/04/21 19:01> Assessment and Plan Assessment and plan: This is 76-year-old female with past medical history of diabetes mellitus type 2, hypertension and gout who was admitted to the hospital on 06/11/2021 with swelling of the submandibular region/tongue and shortness of breath. 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 Patient was also noted to have severe coagulopathy due to Coumadin and probably component of hemorrhagic shock with blood loss anemia. S/p vasopressor support with Levophed and Fabian-Synephrine Patient had hospital course complicated by cardiac arrest on 06/14 with ROSC. Patient is status post trach and PEG tube placement on 06/19/2021. Patient was a code met overnight and transfer back in the ICU on 07/04/21 due to decreased level of consciousness, respiratory distress and tachypnea. Hospital course to date: 06/12: Patient received additional 2 units FFP and 1 unit PRBC and vitamin K today. Overnight critical care placed a femoral CVL. Patient sedated on fentanyl, propofol and Versed. Currently on Fabian-Synephrine and Levophed for blood pressure maintenance. Remains amatory support. Infectious disease consult ed. Started on sliding scale insulin and recultured. COVID-19 PCR pending. Surgery at bedside to place chest tube. 06/13: Patient was taken back to the OR today for exchange cricothyroid to possible tracheostomy. Patient returned with ETT. Chest tube was changed to larger size in the OR. Patient was hypotensive, tachycardic, hypoxic in the OR and received hespan, albumin and an A-line. Upon arrival patient was increased to max dose Levophed for hypotension which has resolved. Titrating vasopressors as tolerated. Remains on sedation with 3 agents. Apparently patient was not ventilating her left lung Intra-Op. Noted to have subcu hematoma and trauma to postpharyngeal area. Questionable decrease cardiac wall motion noted in OR-> will order echocardiogram to further investigate. Patient received additional PRBC today. DIC panel resulted as normal. Patient BUN/creatinine did increase as well as noted to have lactic acidosis. May need IV bolus in addition to pressor use. Likely bronc with Pulmicort today as repeat CXR showed right possible pneumo hydrothorax 06/14: Antibiotics changed to Zosyn per ID, surgical packing removed from neck and makeshift [place] drain placed by surgery and old chronic thyroidectomy site. CXR was completed and RN heard gurgling and blood was noted on dressing. ST elevation noted on bedside monitor and patient was hypoxic. FiO2 increased t o 100%. However shortly after patient lost her pulse and ACLS was initiated. Patient received 3 rounds of epinephrine and ROSC was achieved. Stat portable CXR showed resolution of lower lobe collapse on the left and stable right-sided chest tube with hemothorax. CCM updated family. Patient H/H noted to be 7.2/23.2 and did RN to transfuse prepared PRBC which [facility] blood bank. Bedside echo completed. 06/15: Off sedation, intermittently follows commands, remains on the prednisone. Surgery will reassess airway on Thursday to see if any further support is required. Urine studies indicate prerenal, given IV bolus and started on Clinimix today. 06/16: Patient restarted on fentanyl drip due to hypertension. Given more LR due to CR improvement post LR yesterday. Patient started on Lantus subcu after given one-time dose of Lantus. PICC placed today. Patient had a CT chest today which showed no mediasinusitis but extensive subcutaneous air. 06/17: General Surgery recommended transferring patient to a ENT specialized facility. Placed a call to [place] transferring [facility], spoke with the fabric separator operator, Dr. Duckworth, who stated that a transfer is possible as long their ENT team accept the patient. Awaiting on a final response. Continue current supportive measures. Basal insulin adjusted for hyperglycemia. 06/18: JEREMIAS overnight. Hypertensive this am, PRN Hydralazine for SBP greater than 160. Remains hyperglycemic, patient is on IV steroids and TPN, basal insulin adjusted. Plan for possible transfer to [place] once an ICU bed is available. 06/19: Low SPO2 and hypotension overnight required Levophed for a short time. Overnight CXR noted with no significant changed. Patient is stable this am and off pressors. Plan for possible Trach and PEG today by General Surgery. 06/20: s/p Trach and PEG. Some bleeding overnight s/p X1 dose of Vitamin K. The bleeding resolved this am, H&H remains stable. Attempted a SAT this am, patient went into SVT, HR in the 160-170 which resolved once sedations were resumed. Plan is to continue to sedation for now, attempt to wean off propofol for a RASS goal of 0 to -2. D/C CCM plan is to wean off sedation as tolerated for PST for possible extubation. Okay to use PEGT per Gen. Surgery. Nutrition consulted for TF management, TF to start tonight once current TPN bag is completed. BG remains elevated, continue current SSI and basal for now, will start tapering IV steroids tomorrow. FWF added for hyponatremia. Wean off pressors as tolerated for MAP above 65. Possible transfer to [place] for ENT eval. 06/21: Overnight events and CXR noted. Worsen subcutaneous emphysema and Rt. Pneumo. CT remains in place and intact to cont. wall suction. Patient remains hemodynamically stable, still on low vent setting. will continue to monitor for now. Patient is also tolerating enteral nutrition via PEGT, TPN D/benjamín. H&H is also trending down, no s/s of any active bleeding. Will continue to trend H&H, transfuse if hgb is less than 7. FWF increased for hypernatremia. Still waiting on possible transfer to [place]. 06/22: JEREMIAS overnight. Subcutaneous emphysema is unchanged. CXR with mild improvement. Patient remains hemodynamically stable. Hydralazine added Q8hr for HTN. FWF increased for hypernatremia. Awaiting transfer to [place] for ENT eval. 06/23: Over 70cc from CT overnight, subcutaneous emphysema with mild improvement. Patient is also tolerating PST this am. Repeat CXR in the am. Patient is still hypertensive, will added norvasc for better control. Continue FWF for hypernatremia and electrolytes replacement as needed, repeat labs in the am. Sp betty in wbcs this am, patient remains afebrile and on IV Abx, most likely due to IV steroids continue to monitor. Continue to taper IV steroids. Hyperglycemia is also improving, continue current SSI and basal for now. 06/24: Patient is anemic today and transfused 1 unit PRBC, hypokalemia and hypophosphatemia repleted, will continue every 6 H/H for now to monitor for bleeding, steroid taper continues, still awaiting transfer to [place], PT/OT consulted, [facility] to talk to case management regarding LTAC transfer. 06/25: Patient responded appropriately to yesterday, placed on pressure support trial today. Per CCM hopefully T-piece in the next 24 to 48 hours and will continue decrease steroids further on . Lujan catheter removed today. 06/26: Patient started T-piece trials, H/H remained stable. Surgery plans to remove chest tube once weaned off ventilator. Increasing her water flush given hypernatremia. 06/27: Chest tube placed to waterseal, T-piece trial trials ongoing. Remains on Zosyn and steroids being tapered. Increasing free water flush, insulin and added 3 times daily insulin. 06/28: Hypernatremia persists, started on D5W for 1 L, replace potassium. Chest tube remains to waterseal. 06/29: Chest tube removed by surgery today, hyponatremia better and dextrose discontinued, hypokalemia noted which was repleted. Speech did see but patient had decreased voice quality and increased wob so aborted 06/30: Hypokalemia noted on labs will be repleted, leukocytosis continues to improve. Continues on T-piece trials and is following commands. 07/01: Transfer from ICU on 06/30. Patient was stable with a trach and T-piece on 5 L. Tolerating tube feeds. 07/02: Patient remains on T-piece with trach in place. On 5 L of O2. She is alert and responds appropriately but not well due to trach tube. Tolerating tube feeds. Appears comfortable. No complaints. No new events reported. Case management reports patient with plans for LTAC placement. 07/03: Patient remains on T-piece with trach in place. On 5 L of O2. Patient tolerating tube feeds. We will check CT of head, neck and chest per pulmonary and general surgery recommendations based on CBC this morning. If leukocytosis persists we will proceed with studies. Patient remains afebrile today. 07/04: s/p X1 dose of IV lasix, patient is now stable on the T-piece via trach at 28% and 5L. Patient remains afebrile, leukocytosis improved, and CXR wiht no significant change. PRN [place] added for pain management. Electrolytes repleted Assessment and Plan #Acute Hypoxic Respiratory Failure -S/p emergent cricothyroidectomy with surgery with 8.00 ETT -s/p trach 06/19 with surgery (#[address]) -T-piece trials started 06/26 -ST: Unable to tolerate [place] valve on 06/28 -Transfer back in the ICU on 07/04 due to respiratory distress -X1 dose of Iv lasix administered -Patient is stable on T-piece at 28% 5L -ABG and CXR noted -CCM consulted, appreciate recommendations -Aspiration precaution HOB above 30 -Continue SPO2 monitoring for SPO2 goal above 92% #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 from dental caries #Leukocytosis-improved -CT neck with contrast showed a significant right floor of mild swelling with extension into the submandibular and submental spaces, significant thickening and inflammation involving the right pharyngeal wall, with the parapharyngeal and retropharyngeal spaces at the level of the thyroid cartilage, epiglottis significantly swollen and so are the aryepiglottic folds resulting in significant airway narrowing at this level, no lymphadenopathy, symmetric submandibular and parathyroid glands, S few scattered caries but no periapical lucencies, nonspecific calcification along the right lateral oropharynx, no definite stone seen within the territory of the submandibular gland ducts, no suspicious rashes lesion -Infectious disease and general surgery consulted, appreciate recommendations -Patient remains afebrile, leukocytosis improved -Hemodynamic stable, not on any perssors -Continue IV Abx- Zosyn per ID #Right-sided pneumothorax -s/p Right chest tube removed 06/29 -06/13 bronchoscopy showed possible blood clot in left lung which may be acting as mucous plug however it was left in place due to possible bleeding inside lung if removed. -06/16 CT chest shows moderate right pneumothorax with collapse of right upper lobe, right thoracostomy tube terminates at the collapsed right upper lobe, bilateral bronchus opacities compatible with infectious/inflammatory etiology, bilateral small pleural effusion, extensive subcutaneous air, small fluid collection in the anterior mediastinum is nonspecific #Hypertension #s/p Cardiac arrest -Patient s/p cardiac arrest with ROSC on 06/14. -S/p vasopressor support with Levophed and Fabian-Synephrine -06/13 Echocardiogram EF 65-70% -BP is stable continue current anihypertensive regimen -Continue blood pressure monitor per protocol -PRN labetalol for SBP greater than 160 #Diabetes mellitus type 2 -Continue SSI Q6hrs -Lantus Qhs -Avoid Hypoglycemia #Coagulopathy-resolved #Acute blood loss anemia-resolved -Patient was on coumadin at home -Continue Lovenix SubQ -Transfuse hemoglobin less than 7 -Monitor for signs of bleeding #GI/DVT Prophylaxis -PPI- Pepcid -Continue AC-Lovenox -SCDs to BLE while in bed The high probability of a clinically significant, sudden or life threatening deterioration of the [multiple] system(s) required my full and direct attention, intervention and personal management. The aggregate critical care time was [60] minutes. This time is in addition to time spent performing reported procedures but includes the following: [x] Data Review and interpretation [x] Patient assessment and monitoring of vital signs [x] Documentation [x] Medication orders and management Disposition Plan: ICU Total Time Spent with Patient (Minutes): 60 History Interval history: Patient seen and examined at the bedside. Code met overnight due to decreased level of consciouness, respiratory distress and tachpnea, s/p X1 dose of IV Lasix. Patient currently fully AAO, stable on Tpiece vias trach at 28% and 5L. Complaints of back pain which she reported is chronic. Patient is otherwise h emodynamically stable Hospitalist Physical - Constitutional Vitals: Temp Pulse Resp BP Pulse Ox 98.0 F 81 14 119/73 100 07/04/21 11:09 07/04/21 10:00 07/04/21 10:00 07/04/21 10:07/04/21 10:00 General appearance: Present: no acute distress, obese (Morbidly obese), other (On T-piece with trach in place.) - EENT Eyes: Present: PERRL ENT: hearing intact, clear oral mucosa - Neck Neck: Present: normal ROM - Respiratory Respiratory effort: normal Respiratory: bilateral: rhonchi - Cardiovascular Rhythm: regular Heart Sounds: Present: S1 & S2 - Extremities Extremities: no ischemia, pulses intact, pulses symmetrical Extremity abnormal: edema - Peripheral Assessment Generalized Edema Type: Non-pitting Edema Degree: 1+ Capillary Refill: < 3 seconds Skin Temperature: Warm Peripheral Pulses: within normal limits - Abdominal General gastrointestinal: soft, non-distended, normal bowel sounds - Integumentary Integumentary: Present: warm, dry - Psychiatric Psychiatric: appropriate mood/affect, cooperative - Neurologic Neurologic: moves all extremities - Allied Health Allied health notes reviewed: nursing HEART Score - HEART Score Troponin: Troponin T < 0.010 ng/mL (0.00-0.029) 06/11/21 23:21 Results - Labs CBC & Chem 7: 07/04/21 05:13 07/04/21 05:13 Labs: Laboratory Last Values WBC 9.4 K/mm3 (4.5-11.0) 07/04/21 05:13 RBC 3.12 M/mm3 (3.65-5.03) L 07/04/21 05:13 Hgb 8.5 gm/dl (10.1-14.3) L 07/04/21 05:13 Hct 25.2 % (30.3-42.9) L 07/04/21 05:13 MCV 81 fl (79-97) 07/04/21 05:13 MCH 27 pg (28-32) L 07/04/21 05:13 MCHC 34 % (30-34) 07/04/21 05:13 RDW 21.3 % (13.2-15.2) H 07/04/21 05:13 Plt Count 172 K/mm3 (140-440) 07/04/21 05:13 Lymph % (Auto) 6.1 % (13.4-35.0) L 07/04/21 05:13 [place] % (Auto) 6.6 % (0.0-7.3) 07/04/21 05:13 Eos % (Auto) 1.8 % (0.0-4.3) 07/04/21 05:13 Baso % (Auto) 0.5 % (0.0-1.8) 07/04/21 05:13 Lymph # (Auto) 0.6 K/mm3 (1.2-5.4) L 07/04/21 05:13 [place] # (Auto) 0.6 K/mm3 (0.0-0.8) 07/04/21 05:13 Eos # (Auto) 0.2 K/mm3 (0.0-0.4) 07/04/21 05:13 Baso # (Auto) 0.0 K/mm3 (0.0-0.1) 07/04/21 05:13 Add Manual Diff Complete 06/30/21 04:25 Total Counted 100 06/30/21 04:25 Seg Neutrophils % 85.0 % (40.0-70.0) H 07/04/21 05:13 Seg Neuts % (Manual) 81.0 % (40.0-70.0) H 06/30/21 04:25 Band Neutrophils % 0 % 06/30/21 04:25 Lymphocytes % (Manual) 10.0 % (13.4-35.0) L 06/30/21 04:25 Reactive Lymphs % (Man) 0 % 06/30/21 04:25 Monocytes % (Manual) 8.0 % (0.0-7.3) H 06/30/21 04:25 Eosinophils % (Manual) 1.0 % (0.0-4.3) 06/30/21 04:25 Basophils % (Manual) 0 % (0.0-1.8) 06/30/21 04:25 Metamyelocytes % 0 % 06/30/21 04:25 Myelocytes % 0 % 06/30/21 04:25 Promyelocytes % 0 % 06/30/21 04:25 Blast Cells % 0 % 06/30/21 04:25 Nucleated RBC % Not Reportable 06/30/21 04:25 Seg Neutrophils # 8.0 K/mm3 (1.8-7.7) H 07/04/21 05:13 Seg Neutrophils # Man 10.5 K/mm3 (1.8-7.7) H 06/30/21 04:25 Band Neutrophils # 0.0 K/mm3 06/30/21 04:25 Lymphocytes # (Manual) 1.3 K/mm3 (1.2-5.4) 06/30/21 04:25 Abs React Lymphs (Man) 0.0 K/mm3 06/30/21 04:25 Monocytes # (Manual) 1.0 K/mm3 (0.0-0.8) H 06/30/21 04:25 Eosinophils # (Manual) 0.1 K/mm3 (0.0-0.4) 06/30/21 04:25 Basophils # (Manual) 0.0 K/mm3 (0.0-0.1) 06/30/21 04:25 Metamyelocytes # 0.0 K/mm3 06/30/21 04:25 Myelocytes # 0.0 K/mm3 06/30/21 04:25 Promyelocytes # 0.0 K/mm3 06/30/21 04:25 Blast Cells # 0.0 K/mm3 06/30/21 04:25 WBC Morphology Not Reportable 06/30/21 04:25 Hypersegmented Neuts Not Reportable 06/30/21 04:25 Hyposegmented Neuts Not Reportable 06/30/21 04:25 Hypogranular Neuts Not Reportable 06/30/21 04:25 Smudge Cells Not Reportable 06/30/21 04:25 Toxic Granulation Not Reportable 06/30/21 04:25 Toxic Vacuolation Not Reportable 06/30/21 04:25 Dohle Bodies Not Reportable 06/30/21 04:25 Pelger-Huet Anomaly Not Reportable 06/30/21 04:25 Dennis Rods Not Reportable 06/30/21 04:25 Platelet Estimate Consistent w auto 06/30/21 04:25 Clumped Platelets Not Reportable 06/30/21 04:25 Plt Clumps, EDTA Not Reportable 06/30/21 04:25 Large Platelets Few 06/30/21 04:25 Giant Platelets Not Reportable 06/30/21 04:25 Platelet Satelliting Not Reportable 06/30/21 04:25 Plt Morphology Comment Not Reportable 06/30/21 04:25 RBC Morphology Not Reportable 06/30/21 04:25 Dimorphic RBCs Not Reportable 06/30/21 04:25 Polychromasia Rare 06/30/21 04:25 Hypochromasia 1+ 06/30/21 04:25 Poikilocytosis Not Reportable 06/30/21 04:25 Anisocytosis 1+ 06/30/21 04:25 Microcytosis Not Reportable 06/30/21 04:25 Macrocytosis Not Reportable 06/30/21 04:25 Spherocytes Not Reportable 06/30/21 04:25 Pappenheimer Bodies Not Reportable 06/30/21 04:25 Sickle Cells Not Reportable 06/30/21 04:25 Target Cells Rare 06/30/21 04:25 Tear Drop Cells Few 06/30/21 04:25 Ovalocytes Not Reportable 06/30/21 04:25 Stomatocytes Few 06/12/21 01:45 Helmet Cells Not Reportable 06/30/21 04:25 [place] Bodies Not Reportable 06/30/21 04:25 [place] Rings Not Reportable 06/30/21 04:25 Platter Cells Not Reportable 06/30/21 04:25 Bite Cells Not Reportable 06/30/21 04:25 Crenated Cell Not Reportable 06/30/21 04:25 Elliptocytes Not Reportable 06/30/21 04:25 Acanthocytes (Spur) Not Reportable 06/30/21 04:25 Rouleaux Not Reportable 06/30/21 04:25 Hemoglobin C Crystals Not Reportable 06/30/21 04:25 Schistocytes Not Reportable 06/30/21 04:25 Malaria parasites Not Reportable 06/30/21 04:25 Edin Bodies Not Reportable 06/30/21 04:25 Hem Pathologist Commnt No 06/30/21 04:25 PT 18.3 Sec. (12.2-14.9) H 06/20/21 04:33 INR 1.37 (0.87-1.13) H 06/20/21 04:33 APTT 26.4 Sec. (24.2-36.6) 06/13/21 Unknown Fibrinogen 546 mg/dl (211-480) H 06/13/21 Unknown D-Dimer 1244.63 ng/mlDDU (0-234) H 06/13/21 Unknown ABG pH 7.448 pH Units (7.350-7.450) 07/04/21 01:44 POC ABG pCO2 25.6 mmHg (32.0-48.0) L 06/13/21 04:31 ABG pCO2 39.5 mm Hg 07/04/21 01:44 POC ABG pO2 138.8 mmHg (83-108) H 06/13/21 04:31 ABG pO2 107.7 mm Hg (80.0-90.0) H 07/04/21 01:44 POC ABG HCO3 21.4 06/13/21 04:31 ABG HCO3 26.7 mmol/L (20.0-26.0) H 07/04/21 01:44 ABG O2 Saturation 98.0 % (95.0-99.0) 07/04/21 01:44 ABG O2 Content 10.3 (0.0-44) 07/04/21 01:44 POC ABG Base Excess -0.7 06/13/21 04:31 ABG Base Excess 2.5 mmol/L (-2.0-3.0) 07/04/21 01:44 ABG Hemoglobin 7.5 gm/dl (12.0-16.0) L 07/04/21 01:44 ABG Oxyhemoglobin 98.1 (94-98) H 06/13/21 04:31 ABG Carboxyhemoglobin 1.6 % (0.0-5.0) 07/04/21 01:44 ABG Methemoglobin 0.6 % (0.0-1.5) 07/04/21 01:44 Oxyhemoglobin 95.9 % (95.0-99.0) 07/04/21 01:44 Carboxyhemoglobin 0.8 (0.5-1.5) 06/13/21 04:31 FiO2 35 % 07/04/21 01:44 FiO2 % 40.0 06/13/21 04:31 Sodium 144 mmol/L (137-145) 07/04/21 05:13 Potassium 3.4 mmol/L (3.6-5.0) L 07/04/21 05:13 Chloride 106.1 mmol/L (98-107) 07/04/21 05:13 Carbon Dioxide 27 mmol/L (22-30) 07/04/21 05:13 Anion Gap 14 mmol/L 07/04/21 05:13 BUN 17 mg/dL (7-17) 07/04/21 05:13 Creatinine 0.8 mg/dL (0.6-1.2) 07/04/21 05:13 Estimated GFR > 60 ml/min 07/04/21 05:13 BUN/Creatinine Ratio 21 % 07/04/21 05:13 Glucose 205 mg/dL (65-100) H 07/04/21 05:13 POC Glucose 146 mg/dL (70-105) H 07/04/21 10:52 Lactic Acid 5.30 mmol/L (0.7-2.0) H* 06/13/21 15:45 Calcium 8.4 mg/dL (8.4-10.2) 07/04/21 05:13 Phosphorus 2.70 mg/dL (2.5-4.5) 07/01/21 05:29 Magnesium 2.10 mg/dL (1.7-2.3) 07/01/21 05:29 Total Bilirubin 0.40 mg/dL (0.1-1.2) 06/15/21 03:56 AST 64 units/L (5-40) H 06/15/21 03:56 ALT 106 units/L (7-56) H 06/15/21 03:56 Alkaline Phosphatase 55 units/L (35-129) 06/15/21 03:56 Troponin T < 0.010 ng/mL (0.00-0.029) 06/11/21 23:21 C-Reactive Protein 3.30 mg/dL (0.00-1.30) H 06/16/21 04:32 Total Protein 5.1 g/dL (6.3-8.2) L 06/15/21 03:56 Albumin 2.9 g/dL (3.9-5) L 06/15/21 03:56 Albumin/Globulin Ratio 1.3 % 06/15/21 03:56 Triglycerides 254 mg/dL (2-149) H 06/21/21 04:42 Urine Color Yellow (Yellow) 06/12/21 17:00 Urine Turbidity Clear (Clear) 06/12/21 17:00 Urine pH 5.0 (5.0-7.0) 06/12/21 17:00 Ur Specific [place] 1.035 (1.003-1.030) H 06/12/21 17:00 Urine Protein 30 mg/dl mg/dL (Negative) 06/12/21 17:00 Urine Glucose (UA) 50 mg/dL (Negative) 06/12/21 17:00 Urine Ketones Tr mg/dL (Negative) 06/12/21 17:00 Urine Blood Neg (Negative) 06/12/21 17:00 Urine Nitrite Neg (Negative) 06/12/21 17:00 Urine Bilirubin Neg (Negative) 06/12/21 17:00 Urine Urobilinogen < 2.0 mg/dL (<2.0) 06/12/21 17:00 Ur Leukocyte Esterase Neg (Negative) 06/12/21 17:00 Urine WBC (Auto) < 1.0 /HPF (0.0-6.0) 06/12/21 17:00 Urine RBC (Auto) < 1.0 /HPF (0.0-6.0) 06/12/21 17:00 Urine Creatinine 81.1 mg/dL (0.1-20.0) H 06/15/21 10:40 Urine Sodium 42 mmol/L 06/15/21 10:40 Coronavirus (PCR) Negative (Negative) 06/12/21 09:50 Blood Type O POSITIVE 06/24/21 06:40 Antibody Screen Negative 06/24/21 06:40 Crossmatch See Detail 06/24/21 06:40 Lujan/IV: Voiding Method Indwelling Catheter Active Medications - Current Medications Current Medications: Generic Name Dose Route Start Last Admin Trade Name Freq PRN Reason Stop Dose Admin Hydrocodone Bitart/Acetaminophen 1 each 07/04/21 10:00 Hydrocodone/Acetaminophen 5-325 Mg Tab PO Q6H PRN Pain, Moderate (4-6) Amlodipine Besylate 5 mg 06/23/21 10:00 07/04/21 09:34 Amlodipine 5 Mg Tab PO 5 mg QDAY JOLENE Administration Lipase/Protease/Amylase 1 each 06/19/21 19:20 Lipase 10,500/Protease 25,000/Amylase 43,750 (Units) Dr Melgar FEEDTUBE PRN PRN For Clogged Feeding Tube Atorvastatin Calcium 20 mg 06/22/21 22:00 07/03/21 22:08 Atorvastatin 20 Mg Tab PO 20 mg QHS [facility] Administration Enoxaparin Sodium 40 mg 06/30/21 22:00 07/03/21 22:07 Enoxaparin 40 Mg/0.4 Ml Inj SUB-Q 40 mg QDAY@2200 [facility] Administration Protocol Famotidine 20 mg 06/24/21 22:00 07/04/21 09:35 Famotidine 20 Mg Tab FEEDTUBE 20 mg BID JOLENE Administration Hydralazine HCl 100 mg 06/22/21 19:00 07/04/21 05:11 Hydralazine 100 Mg Tab FEEDTUBE Not Given Q8HR [facility] Hydrogen Peroxide/Benzyl Alcohol 1 applic 07/02/21 19:35 Hydrogen Peroxide 118 Ml Solution TP ONCE [facility] Piperacillin Sod/Tazobactam Sod 4.5 gm in 100 mls @ 200 mls/hr 07/04/21 12:00 Zosyn/Ns 4.5gm/100ml IV 07/05/21 00:29 Q6HR [facility] Protocol Insulin Glargine 30 units 07/04/21 22:00 Insulin Glargine 100 Units/Ml SUB-Q QHS [facility] Insulin Human Lispro 0 unit 06/12/21 12:00 07/04/21 05:11 Insulin Lispro 100 Unit/Ml SUB-Q Not Given Q6HR [facility] Protocol Labetalol HCl 10 mg 06/21/21 18:00 06/27/21 00:53 Labetalol 20 Mg/4 Ml Inj IV 10 mg Q4HR PRN Administration Hypertension Metoclopramide HCl 10 mg 06/11/21 20:42 Metoclopramide 10 Mg/2 Ml Inj IV Q6H PRN Nausea And Vomiting Ondansetron HCl 4 mg 06/11/21 20:42 Ondansetron 4 Mg/2 Ml Inj IV Q3H PRN Nausea And Vomiting Potassium Chloride 40 meq 07/04/21 09:00 07/04/21 09:35 Potassium Chloride 20 Meq Packet FEEDTUBE 07/04/21 13:00 40 meq ONCE@0900 JOLENE Administration Simple Syrup 15 ml 06/19/21 19:20 Simple Syrup 15 Ml FEEDTUBE PRN PRN Hypoglycemia Simple Syrup 30 ml 06/19/21 19:20 Simple Syrup 15 Ml FEEDTUBE PRN PRN Hypoglycemia Sodium Bicarbonate 325 mg 06/19/21 19:20 Sodium Bicarbonate 325 Mg Tab FEEDTUBE PRN PRN For Clogged Feeding Tube Sodium Chloride 10 ml 06/11/21 22:00 07/04/21 09:34 Sodium Chloride 0.9% 10 Ml Flush Syringe IV 10 ml BID JOLENE Administration Sodium Chloride 10 ml 06/11/21 20:42 Sodium Chloride 0.9% 10 Ml Flush Syringe IV PRN PRN LINE FLUSH Nutrition/Malnutrition Assess - Dietary Evaluation Nutrition/Malnutrition Findings: Nutrition Notes Start: 06/16/21 12:10 Freq: Status: Active Protocol: Document 07/01/21 15:58 CANDIDO (Rec: 07/01/21 16:19 CANDIDO [id number]) Nutrition Notes Initial or Follow up Reassessment Current Diagnosis Diabetes,Sepsis,Hypertension, Respiratory Failure Other Pertinent Diagnosis Jeremiah's Angina, (R) Pneumothorax, Coagulopathy, s/ pCardiac Arrest, Gout... Current Diet TF-Vital AF 1.2 Quan @ 50 ml/hr (since D 06/21). Labs/Tests 07/01: Glu 177. Pertinent Medications 07/01: Insulin, others nutritionally unremarkable. Height 5 ft 8 in Weight 119.9 kg [place] Body Weight (kg) 63.63 BMI 40.1 Weight change and time frame 10.584 Kg body weight gain in 15 days reported Weight Status Morbidly Obese Subjective/Other Information RD consult for routine F/U on TF tolerance. TF continues as prescribed, with no significant events noted. Pt continues on Mechanical Ventilation through Tracheostomy, well tolerated, according to Progress notes. Hypernatremia controlled, flush backed off to 80 ml Q 4 hr. Pt still waiting for transfer to [place] or [facility]. Percent of energy/protein needs met: Prescribed Vital AF 1.2 Quan @ 50 ml/hr provides for energy/ protein needs (1,440 Kcal/90 g ) during LOS; 105% Kcal and 71 % AA. Burn Absent Trauma Absent GI Symptoms Other Difficulty In Swallowing,Chewing Food Allergy No Skin Integrity/Comment Surgical wounds. Current % PO Other Minimum of two criteria No #1 Nutrition Diagnosis Inadequate oral intake Diagnosis Progress(for reassessment Continues documentation) Is patient on ventilator? Yes Is Patient Ambulatory and/or Out of Bed No REE-([facility]-confined to bed) [phone] Calculation Used for Recommendations 65-70% energy needs Additional Notes Energy needs: 1280-1379kcal/ day Pro needs 2g/kg IBW: 127g/day Fluid needs 1ml/kcal Nutrition Intervention Nutrition Support: Continue Vital AF 1.2 Quan @ 50 ml/hr. Flush: 80 ml water flush Q 4 hr. Kcal 1,440 Protein (gm) 90 Carbohydrates (gm) 133 Fat (gm) 65 Fluid (mL) 973 Fiber (gm) 6 % RDI: 105% Kcal; 71% AA. Goal #1 Provide at least 75% of energy /protein needs through Enteral Feeding during LOS. Goal #2 Maintain body weight within +/ -3% of admission body weight during LOS. Follow-Up By: 07/08/21 Additional Comments Continue monitoring Mechanical Ventilation, Na/Flush, TF tolerance and BM. <MIKE CORTEZ E - Last Filed: 07/05/21 09:33> Assessment and Plan Assessment and plan: I saw and evaluated the patient. I agree with the findings and the plan of care as documented in the Nurse Practitioner's~note, with the following corrections and additions. Hospitalist Physical - Constitutional Vitals: Temp Pulse Resp BP Pulse Ox 98.5 F 86 22 147/82 96 07/05/21 04:00 07/05/21 06:00 07/05/21 06:00 07/05/21 06:00 07/05/21 06:00 HEART Score - HEART Score Troponin: Troponin T < 0.010 ng/mL (0.00-0.029) 06/11/21 23:21 Results - Labs CBC & Chem 7: 07/05/21 04:38 07/05/21 04:38 Labs: Laboratory Last Values WBC 7.7 K/mm3 (4.5-11.0) 07/05/21 04:38 RBC 2.95 M/mm3 (3.65-5.03) L 07/05/21 04:38 Hgb 7.8 gm/dl (10.1-14.3) L 07/05/21 04:38 Hct 23.9 % (30.3-42.9) L 07/05/21 04:38 MCV 81 fl (79-97) 07/05/21 04:38 MCH 27 pg (28-32) L 07/05/21 04:38 MCHC 33 % (30-34) 07/05/21 04:38 RDW 21.0 % (13.2-15.2) H 07/05/21 04:38 Plt Count 205 K/mm3 (140-440) 07/05/21 04:38 Lymph % (Auto) 6.1 % (13.4-35.0) L 07/04/21 05:13 [place] % (Auto) 6.6 % (0.0-7.3) 07/04/21 05:13 Eos % (Auto) 1.8 % (0.0-4.3) 07/04/21 05:13 Baso % (Auto) 0.5 % (0.0-1.8) 07/04/21 05:13 Lymph # (Auto) 0.6 K/mm3 (1.2-5.4) L 07/04/21 05:13 [place] # (Auto) 0.6 K/mm3 (0.0-0.8) 07/04/21 05:13 Eos # (Auto) 0.2 K/mm3 (0.0-0.4) 07/04/21 05:13 Baso # (Auto) 0.0 K/mm3 (0.0-0.1) 07/04/21 05:13 Add Manual Diff Complete 06/30/21 04:25 Total Counted 100 06/30/21 04:25 Seg Neutrophils % 85.0 % (40.0-70.0) H 07/04/21 05:13 Seg Neuts % (Manual) 81.0 % (40.0-70.0) H 06/30/21 04:25 Band Neutrophils % 0 % 06/30/21 04:25 Lymphocytes % (Manual) 10.0 % (13.4-35.0) L 06/30/21 04:25 Reactive Lymphs % (Man) 0 % 06/30/21 04:25 Monocytes % (Manual) 8.0 % (0.0-7.3) H 06/30/21 04:25 Eosinophils % (Manual) 1.0 % (0.0-4.3) 06/30/21 04:25 Basophils % (Manual) 0 % (0.0-1.8) 06/30/21 04:25 Metamyelocytes % 0 % 06/30/21 04:25 Myelocytes % 0 % 06/30/21 04:25 Promyelocytes % 0 % 06/30/21 04:25 Blast Cells % 0 % 06/30/21 04:25 Nucleated RBC % Not Reportable 06/30/21 04:25 Seg Neutrophils # 8.0 K/mm3 (1.8-7.7) H 07/04/21 05:13 Seg Neutrophils # Man 10.5 K/mm3 (1.8-7.7) H 06/30/21 04:25 Band Neutrophils # 0.0 K/mm3 06/30/21 04:25 Lymphocytes # (Manual) 1.3 K/mm3 (1.2-5.4) 06/30/21 04:25 Abs React Lymphs (Man) 0.0 K/mm3 06/30/21 04:25 Monocytes # (Manual) 1.0 K/mm3 (0.0-0.8) H 06/30/21 04:25 Eosinophils # (Manual) 0.1 K/mm3 (0.0-0.4) 06/30/21 04:25 Basophils # (Manual) 0.0 K/mm3 (0.0-0.1) 06/30/21 04:25 Metamyelocytes # 0.0 K/mm3 06/30/21 04:25 Myelocytes # 0.0 K/mm3 06/30/21 04:25 Promyelocytes # 0.0 K/mm3 06/30/21 04:25 Blast Cells # 0.0 K/mm3 06/30/21 04:25 WBC Morphology Not Reportable 06/30/21 04:25 Hypersegmented Neuts Not Reportable 06/30/21 04:25 Hyposegmented Neuts Not Reportable 06/30/21 04:25 Hypogranular Neuts Not Reportable 06/30/21 04:25 Smudge Cells Not Reportable 06/30/21 04:25 Toxic Granulation Not Reportable 06/30/21 04:25 Toxic Vacuolation Not Reportable 06/30/21 04:25 Dohle Bodies Not Reportable 06/30/21 04:25 Pelger-Huet Anomaly Not Reportable 06/30/21 04:25 Dennis Rods Not Reportable 06/30/21 04:25 Platelet Estimate Consistent w auto 06/30/21 04:25 Clumped Platelets Not Reportable 06/30/21 04:25 Plt Clumps, EDTA Not Reportable 06/30/21 04:25 Large Platelets Few 06/30/21 04:25 Giant Platelets Not Reportable 06/30/21 04:25 Platelet Satelliting Not Reportable 06/30/21 04:25 Plt Morphology Comment Not Reportable 06/30/21 04:25 RBC Morphology Not Reportable 06/30/21 04:25 Dimorphic RBCs Not Reportable 06/30/21 04:25 Polychromasia Rare 06/30/21 04:25 Hypochromasia 1+ 06/30/21 04:25 Poikilocytosis Not Reportable 06/30/21 04:25 Anisocytosis 1+ 06/30/21 04:25 Microcytosis Not Reportable 06/30/21 04:25 Macrocytosis Not Reportable 06/30/21 04:25 Spherocytes Not Reportable 06/30/21 04:25 Pappenheimer Bodies Not Reportable 06/30/21 04:25 Sickle Cells Not Reportable 06/30/21 04:25 Target Cells Rare 06/30/21 04:25 Tear Drop Cells Few 06/30/21 04:25 Ovalocytes Not Reportable 06/30/21 04:25 Stomatocytes Few 06/12/21 01:45 Helmet Cells Not Reportable 06/30/21 04:25 [place] Bodies Not Reportable 06/30/21 04:25 [place] Rings Not Reportable 06/30/21 04:25 [place] Cells Not Reportable 06/30/21 04:25 Bite Cells Not Reportable 06/30/21 04:25 Crenated Cell Not Reportable 06/30/21 04:25 Elliptocytes Not Reportable 06/30/21 04:25 Acanthocytes (Spur) Not Reportable 06/30/21 04:25 Rouleaux Not Reportable 06/30/21 04:25 Hemoglobin C Crystals Not Reportable 06/30/21 04:25 Schistocytes Not Reportable 06/30/21 04:25 Malaria parasites Not Reportable 06/30/21 04:25 Edin Bodies Not Reportable 06/30/21 04:25 Hem Pathologist Commnt No 06/30/21 04:25 PT 18.3 Sec. (12.2-14.9) H 06/20/21 04:33 INR 1.37 (0.87-1.13) H 06/20/21 04:33 APTT 26.4 Sec. (24.2-36.6) 06/13/21 Unknown Fibrinogen 546 mg/dl (211-480) H 06/13/21 Unknown D-Dimer 1244.63 ng/mlDDU (0-234) H 06/13/21 Unknown ABG pH 7.448 pH Units (7.350-7.450) 07/04/21 01:44 POC ABG pCO2 25.6 mmHg (32.0-48.0) L 06/13/21 04:31 ABG pCO2 39.5 mm Hg 07/04/21 01:44 POC ABG pO2 138.8 mmHg (83-108) H 06/13/21 04:31 ABG pO2 107.7 mm Hg (80.0-90.0) H 07/04/21 01:44 POC ABG HCO3 21.4 06/13/21 04:31 ABG HCO3 26.7 mmol/L (20.0-26.0) H 07/04/21 01:44 ABG O2 Saturation 98.0 % (95.0-99.0) 07/04/21 01:44 ABG O2 Content 10.3 (0.0-44) 07/04/21 01:44 POC ABG Base Excess -0.7 06/13/21 04:31 ABG Base Excess 2.5 mmol/L (-2.0-3.0) 07/04/21 01:44 ABG Hemoglobin 7.5 gm/dl (12.0-16.0) L 07/04/21 01:44 ABG Oxyhemoglobin 98.1 (94-98) H 06/13/21 04:31 ABG Carboxyhemoglobin 1.6 % (0.0-5.0) 07/04/21 01:44 ABG Methemoglobin 0.6 % (0.0-1.5) 07/04/21 01:44 Oxyhemoglobin 95.9 % (95.0-99.0) 07/04/21 01:44 Carboxyhemoglobin 0.8 (0.5-1.5) 06/13/21 04:31 FiO2 35 % 07/04/21 01:44 FiO2 % 40.0 06/13/21 04:31 Sodium 138 mmol/L (137-145) 07/05/21 04:38 Potassium 3.0 mmol/L (3.6-5.0) L 07/05/21 04:38 Chloride 102.0 mmol/L (98-107) 07/05/21 04:38 Carbon Dioxide 24 mmol/L (22-30) 07/05/21 04:38 Anion Gap 15 mmol/L 07/05/21 04:38 BUN 18 mg/dL (7-17) H 07/05/21 04:38 Creatinine 0.8 mg/dL (0.6-1.2) 07/05/21 04:38 Estimated GFR > 60 ml/min 07/05/21 04:38 BUN/Creatinine Ratio 23 % 07/05/21 04:38 Glucose 174 mg/dL (65-100) H 07/05/21 04:38 POC Glucose 163 mg/dL (70-105) H 07/05/21 05:15 Lactic Acid 5.30 mmol/L (0.7-2.0) H* 06/13/21 15:45 Calcium 8.4 mg/dL (8.4-10.2) 07/05/21 04:38 Phosphorus 2.20 mg/dL (2.5-4.5) L 07/05/21 04:38 Magnesium 1.70 mg/dL (1.7-2.3) 07/05/21 04:38 Total Bilirubin 0.40 mg/dL (0.1-1.2) 06/15/21 03:56 AST 64 units/L (5-40) H 06/15/21 03:56 ALT 106 units/L (7-56) H 06/15/21 03:56 Alkaline Phosphatase 55 units/L (35-129) 06/15/21 03:56 Troponin T < 0.010 ng/mL (0.00-0.029) 06/11/21 23:21 C-Reactive Protein 3.30 mg/dL (0.00-1.30) H 06/16/21 04:32 Total Protein 5.1 g/dL (6.3-8.2) L 06/15/21 03:56 Albumin 2.9 g/dL (3.9-5) L 06/15/21 03:56 Albumin/Globulin Ratio 1.3 % 06/15/21 03:56 Triglycerides 254 mg/dL (2-149) H 06/21/21 04:42 Urine Color Yellow (Yellow) 06/12/21 17:00 Urine Turbidity Clear (Clear) 06/12/21 17:00 Urine pH 5.0 (5.0-7.0) 06/12/21 17:00 Ur Specific [place] 1.035 (1.003-1.030) H 06/12/21 17:00 Urine Protein 30 mg/dl mg/dL (Negative) 06/12/21 17:00 Urine Glucose (UA) 50 mg/dL (Negative) 06/12/21 17:00 Urine Ketones Tr mg/dL (Negative) 06/12/21 17:00 Urine Blood Neg (Negative) 06/12/21 17:00 Urine Nitrite Neg (Negative) 06/12/21 17:00 Urine Bilirubin Neg (Negative) 06/12/21 17:00 Urine Urobilinogen < 2.0 mg/dL (<2.0) 06/12/21 17:00 Ur Leukocyte Esterase Neg (Negative) 06/12/21 17:00 Urine WBC (Auto) < 1.0 /HPF (0.0-6.0) 06/12/21 17:00 Urine RBC (Auto) < 1.0 /HPF (0.0-6.0) 06/12/21 17:00 Urine Creatinine 81.1 mg/dL (0.1-20.0) H 06/15/21 10:40 Urine Sodium 42 mmol/L 06/15/21 10:40 Coronavirus (PCR) Negative (Negative) 06/12/21 09:50 Blood Type O POSITIVE 06/24/21 06:40 Antibody Screen Negative 06/24/21 06:40 Crossmatch See Detail 06/24/21 06:40 Lujan/IV: Voiding Method Indwelling Catheter Active Medications - Current Medications Current Medications: Generic Name Dose Route Start Last Admin Trade Name Freq PRN Reason Stop Dose Admin Hydrocodone Bitart/Acetaminophen 1 each 07/04/21 10:00 07/05/21 07:07 Hydrocodone/Acetaminophen 5-325 Mg Tab PO 1 each Q6H PRN Administration Pain, Moderate (4-6) Amlodipine Besylate 5 mg 06/23/21 10:00 07/04/21 09:34 Amlodipine 5 Mg Tab PO 5 mg QDAY JOLENE Administration Lipase/Protease/Amylase 1 each 06/19/21 19:20 Lipase 10,500/Protease 25,000/Amylase 43,750 (Units) Dr Melgar FEEDTERNESTO PRN PRN For Clogged Feeding Tube Atorvastatin Calcium 20 mg 06/22/21 22:00 07/04/21 22:13 Atorvastatin 20 Mg Tab PO 20 mg QHS JOLENE Administration Enoxaparin Sodium 40 mg 06/30/21 22:00 07/04/21 22:13 Enoxaparin 40 Mg/0.4 Ml Inj SUB-Q 40 mg QDAY@2200 JOLENE Administration Protocol Famotidine 20 mg 06/24/21 22:00 07/04/21 22:13 Famotidine 20 Mg Tab FEEDTUBE 20 mg BID JOLENE Administration Hydralazine HCl 100 mg 06/22/21 19:00 07/05/21 05:29 Hydralazine 100 Mg Tab FEEDTUBE 100 mg Q8HR JOLENE Administration Hydrogen Peroxide/Benzyl Alcohol 1 applic 07/02/21 19:35 Hydrogen Peroxide 118 Ml Solution TP ONCE JOLENE Magnesium Sulfate 2 gm in 50 mls @ 25 mls/hr 07/05/21 08:30 Magnesium Sulfate 2gm/50ml IV 07/05/21 12:30 ONCE@0830 [facility] Potassium Phosphate 15 mmol/ 255 mls @ 125 mls/hr 07/05/21 09:00 Sodium Chloride IV 07/05/21 11:02 ONCE ONE Insulin Glargine 30 units 07/04/21 22:00 07/04/21 22:11 Insulin Glargine 100 Units/Ml SUB-Q 30 units QHS [facility] Administration Insulin Human Lispro 0 unit 06/12/21 12:00 07/05/21 05:28 Insulin Lispro 100 Unit/Ml SUB-Q 3 unit Q6HR [facility] Administration Protocol Labetalol HCl 10 mg 06/21/21 18:00 06/27/21 00:53 Labetalol 20 Mg/4 Ml Inj IV 10 mg Q4HR PRN Administration Hypertension Melatonin 5 mg 07/04/21 18:56 07/04/21 23:38 Melatonin 5 Mg Tab PO 5 mg QHS PRN Administration Sleep Metoclopramide HCl 10 mg 06/11/21 20:42 Metoclopramide 10 Mg/2 Ml Inj IV Q6H PRN Nausea And Vomiting Ondansetron HCl 4 mg 06/11/21 20:42 Ondansetron 4 Mg/2 Ml Inj IV Q3H PRN Nausea And Vomiting Potassium Chloride 40 meq 07/05/21 09:00 Potassium Chloride 20 Meq Packet FEEDTUBE 07/05/21 13:00 ONCE@0900 [facility] Simple Syrup 15 ml 06/19/21 19:20 Simple Syrup 15 Ml FEEDTUBE PRN PRN Hypoglycemia Simple Syrup 30 ml 06/19/21 19:20 Simple Syrup 15 Ml FEEDTUBE PRN PRN Hypoglycemia Sodium Bicarbonate 325 mg 06/19/21 19:20 Sodium Bicarbonate 325 Mg Tab FEEDTUBE PRN PRN For Clogged Feeding Tube Sodium Chloride 10 ml 06/11/21 22:00 07/04/21 23:37 Sodium Chloride 0.9% 10 Ml Flush Syringe IV Not Given BID JOLENE Sodium Chloride 10 ml 06/11/21 20:42 Sodium Chloride 0.9% 10 Ml Flush Syringe IV PRN PRN LINE FLUSH Nutrition/Malnutrition Assess - Dietary Evaluation Nutrition/Malnutrition Findings: Nutrition Notes Start: 06/16/21 12:10 Freq: Status: Active Protocol: Document 07/01/21 15:58 CANDIDO (Rec: 07/01/21 16:19 CANDIDO [id number]) Nutrition Notes Initial or Follow up Reassessment Current Diagnosis Diabetes,Sepsis,Hypertension, Respiratory Failure Other Pertinent Diagnosis Jeremiah's Angina, (R) Pneumothorax, Coagulopathy, s/ pCardiac Arrest, Gout... Current Diet TF-Vital AF 1.2 Quan @ 50 ml/hr (since D 06/21). Labs/Tests 07/01: Glu 177. Pertinent Medications 07/01: Insulin, others nutritionally unremarkable. Height 5 ft 8 in Weight 119.9 kg [place] Body Weight (kg) 63.63 BMI 40.1 Weight change and time frame 10.584 Kg body weight gain in 15 days reported Weight Status Morbidly Obese Subjective/Other Information RD consult for routine F/U on TF tolerance. TF continues as prescribed, with no significant events noted. Pt continues on Mechanical Ventilation through Tracheostomy, well tolerated, according to Progress notes. Hypernatremia controlled, flush backed off to 80 ml Q 4 hr. Pt still waiting for transfer to [place] or [facility]. Percent of energy/protein needs met: Prescribed Vital AF 1.2 Quan @ 50 ml/hr provides for energy/ protein needs (1,440 Kcal/90 g ) during LOS; 105% Kcal and 71 % AA. Burn Absent Trauma Absent GI Symptoms Other Difficulty In Swallowing,Chewing Food Allergy No Skin Integrity/Comment Surgical wounds. Current % PO Other Minimum of two criteria No #1 Nutrition Diagnosis Inadequate oral intake Diagnosis Progress(for reassessment Continues documentation) Is patient on ventilator? Yes Is Patient Ambulatory and/or Out of Bed No REE-([facility]-confined to bed) 2581.600 Calculation Used for Recommendations 65-70% energy needs Additional Notes Energy needs: 1280-1379kcal/ day Pro needs 2g/kg IBW: 127g/day Fluid needs 1ml/kcal Nutrition Intervention Nutrition Support: Continue Vital AF 1.2 Quan @ 50 ml/hr. Flush: 80 ml water flush Q 4 hr. Kcal 1,440 Protein (gm) 90 Carbohydrates (gm) 133 Fat (gm) 65 Fluid (mL) 973 Fiber (gm) 6 % RDI: 105% Kcal; 71% AA. Goal #1 Provide at least 75% of energy /protein needs through Enteral Feeding during LOS. Goal #2 Maintain body weight within +/ -3% of admission body weight during LOS. Follow-Up By: 07/08/21 Additional Comments Continue monitoring Mechanical Ventilation, Na/Flush, TF tolerance and BM.
--- NOTE | 2021-07-04 13:27 | Progress Note ---
Assessment and Plan Cultures: 06/12/2021 blood cultures: no growth A/P: 76-year-old female with diabetes, hypertension, gout was admitted to the hospital on 06/11/2021 with swelling of the submandibular region, tongue and difficulty breathing, labs also revealed severe coagulopathy due to Coumadin. 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 Shock resolved. s/p tracheostomy and PEG tube placement 06/19/2021. #Acute respiratory failure: s/p trach #Right-sided pneumothorax: s/p chest tube. #Diabetes mellitus, uncontrolled #Coagulopathy: Secondary to Coumadin. #Acute blood loss anemia Recs: -continue Zosyn. plan 21 days -continue on steroid taper per pulm/ICU Sinai Small MD [facility] ([facility]) O: [phone] F: [phone] Subjective Date of service: 07/04/21 Interval history: Afebrile, normal white count. Imaging personally reviewed: Chest x-ray: Improvement of bilateral opacities. Objective - Exam Narrative Exam: Physical Exam: Constitutional: Awake, on T-piece Head, Ears, Nose: Normocephalic, atraumatic. External ears, nose normal Eyes: Conjunctivae/corneas clear. No icterus. No ptosis. Oral: trach Cardiovascular: S1, S2 + Respiratory: AE reduced, right-sided chest tube. GI: Soft, bowel sounds +, PEG + Musculoskeletal: No pedal edema, no cyanosis. Skin: No rash or abscess Hem/Lymphatic: No palpable cervical or supraclavicular nodes. No lymphangitis Psych: no agitation Neurological: on t-piece examined. - Constitutional Vitals: Vital Signs Temp Pulse Resp BP Pulse Ox 98.0 F 94 H 16 134/70 88 07/04/21 11:09 07/04/21 13:00 07/04/21 13:00 07/04/21 13:00 07/04/21 12:30 Temperature -Last 24 Hours Temperature 98.0 F Temperature 98.3 F Temperature 98.2 F Temperature 98.1 F - Labs CBC & Chem 7: 07/04/21 05:13 07/04/21 05:13 Labs: Abnormal lab results 07/02/21 07/03/21 07/03/21 Range/Units 22:27 16:34 22:14 RBC (3.65-5.03) M/mm3 Hgb (10.1-14.3) gm/dl Hct (30.3-42.9) % MCH (28-32) pg RDW (13.2-15.2) % Lymph % (Auto) (13.4-35.0) % Lymph # (Auto) (1.2-5.4) K/mm3 Seg Neutrophils % (40.0-70.0) % Seg Neutrophils # (1.8-7.7) K/mm3 ABG pH 7.199 L* (7.350-7.450) pH Units ABG pO2 104.5 H (80.0-90.0) mm Hg ABG HCO3 30.3 H (20.0-26.0) mmol/L ABG Hemoglobin 9.8 L (12.0-16.0) gm/dl Oxyhemoglobin 94.6 L (95.0-99.0) % Potassium (3.6-5.0) mmol/L Glucose (65-100) mg/dL POC Glucose 165 H 174 H (70-105) mg/dL 07/03/21 07/04/21 07/04/21 Range/Units 22:15 00:28 01:44 RBC (3.65-5.03) M/mm3 Hgb (10.1-14.3) gm/dl Hct (30.3-42.9) % MCH (28-32) pg RDW (13.2-15.2) % Lymph % (Auto) (13.4-35.0) % Lymph # (Auto) (1.2-5.4) K/mm3 Seg Neutrophils % (40.0-70.0) % Seg Neutrophils # (1.8-7.7) K/mm3 ABG pH (7.350-7.450) pH Units ABG pO2 107.7 H (80.0-90.0) mm Hg ABG HCO3 26.7 H (20.0-26.0) mmol/L ABG Hemoglobin 7.5 L (12.0-16.0) gm/dl Oxyhemoglobin (95.0-99.0) % Potassium (3.6-5.0) mmol/L Glucose (65-100) mg/dL POC Glucose 180 H 246 H (70-105) mg/dL 07/04/21 07/04/21 07/04/21 Range/Units 05:07 05:13 05:13 RBC 3.12 L (3.65-5.03) M/mm3 Hgb 8.5 L (10.1-14.3) gm/dl Hct 25.2 L (30.3-42.9) % MCH 27 L (28-32) pg RDW 21.3 H (13.2-15.2) % Lymph % (Auto) 6.1 L (13.4-35.0) % Lymph # (Auto) 0.6 L (1.2-5.4) K/mm3 Seg Neutrophils % 85.0 H (40.0-70.0) % Seg Neutrophils # 8.0 H (1.8-7.7) K/mm3 ABG pH (7.350-7.450) pH Units ABG pO2 (80.0-90.0) mm Hg ABG HCO3 (20.0-26.0) mmol/L ABG Hemoglobin (12.0-16.0) gm/dl Oxyhemoglobin (95.0-99.0) % Potassium 3.4 L (3.6-5.0) mmol/L Glucose 205 H (65-100) mg/dL POC Glucose 179 H (70-105) mg/dL 07/04/21 Range/Units 10:52 RBC (3.65-5.03) M/mm3 Hgb (10.1-14.3) gm/dl Hct (30.3-42.9) % MCH (28-32) pg RDW (13.2-15.2) % Lymph % (Auto) (13.4-35.0) % Lymph # (Auto) (1.2-5.4) K/mm3 Seg Neutrophils % (40.0-70.0) % Seg Neutrophils # (1.8-7.7) K/mm3 ABG pH (7.350-7.450) pH Units ABG pO2 (80.0-90.0) mm Hg ABG HCO3 (20.0-26.0) mmol/L ABG Hemoglobin (12.0-16.0) gm/dl Oxyhemoglobin (95.0-99.0) % Potassium (3.6-5.0) mmol/L Glucose (65-100) mg/dL POC Glucose 146 H (70-105) mg/dL
[2021-07-04] MEDS ORDERED: MELATONIN 5 MG TAB PO PRN (18:56)
[2021-07-04] MEDS: INSULIN GLARGINE 100 UNITS/ML SUB-Q SCH (22:11)
[2021-07-04] MEDS: ENOXAPARIN 40 MG/0.4 ML INJ SUB-Q SCH (22:13)
[2021-07-05] MEDS: PIPERACIL/TAZOBACTA 4.5/NS 100 4.5 GM/100 ML VIAL IV SCH (00:10)
[2021-07-05] MEDS: INSULIN LISPRO 100 UNIT/ML SUB-Q SCH ×4 (00:15→18:53)
[2021-07-05] MEDS: HYDROcodone/ACETAMINOPHEN 5-325 MG TAB PO PRN ×3 (00:45→19:01)
[2021-07-05 05:08] LABS: Hematocrit 23.9 % (30.3-42.9); Hemoglobin 7.8 gm/dl (10.1-14.3); Mean Corpuscular HGB Conc 33 % (30-34); Mean Corpuscular Volume 81 fl (79-97); Platelet Count 205 K/mm3 (140-440); Red Blood Count 2.95 M/mm3 (3.65-5.03)
[2021-07-05] MEDS: hydrALAZINE 100 MG TAB FEEDTUBE SCH ×3 (05:29→21:36)
[2021-07-05 05:33] LABS: BUN/Creatinine Ratio 23; Blood Urea Nitrogen 18 mg/dL (7-17); Calcium 8.4 mg/dL (8.4-10.2); Hemolysis Index 0
[2021-07-05] MEDS ORDERED: MAGNESIUM SULFATE 2 GM/50 ML BAG IV SCH (08:30)
[2021-07-05] MEDS ORDERED: POTASSIUM PHOSPHATE 15 MMOL in SODIUM CHLORIDE 0.9% 250ML 250 ML IV ONE (09:00)
[2021-07-05] MEDS ORDERED: POTASSIUM CHLORIDE 20 MEQ PACKET FEEDTUBE SCH (09:00)
[2021-07-05] MEDS: amLODIPine 5 MG TAB PO SCH (09:58)
[2021-07-05] MEDS: FAMOTIDINE 20 MG TAB FEEDTUBE SCH ×2 (09:58→21:37)
--- NOTE | 2021-07-05 11:37 | Progress Note ---
<VIOLETTE DEMPSEY - Last Filed: 07/05/21 19:41> Assessment and Plan Assessment and plan: This is 76-year-old female with past medical history of diabetes mellitus type 2, hypertension and gout who was admitted to the hospital on 06/11/2021 with swelling of the submandibular region/tongue and shortness of breath. 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 Patient was also noted to have severe coagulopathy due to Coumadin and probably component of hemorrhagic shock with blood loss anemia. S/p vasopressor support with Levophed and Fabian-Synephrine Patient had hospital course complicated by cardiac arrest on 06/14 with ROSC. Patient is status post trach and PEG tube placement on 06/19/2021. Patient was a code met overnight and transfer back in the ICU on 07/04/21 due to decreased level of consciousness, respiratory distress and tachypnea. Hospital course to date: 06/12: Patient received additional 2 units FFP and 1 unit PRBC and vitamin K today. Overnight critical care placed a femoral CVL. Patient sedated on fentanyl, propofol and Versed. Currently on Fabian-Synephrine and Levophed for blood pressure maintenance. Remains amatory support. Infectious disease consult ed. Started on sliding scale insulin and recultured. COVID-19 PCR pending. Surgery at bedside to place chest tube. 06/13: Patient was taken back to the OR today for exchange cricothyroid to possible tracheostomy. Patient returned with ETT. Chest tube was changed to larger size in the OR. Patient was hypotensive, tachycardic, hypoxic in the OR and received hespan, albumin and an A-line. Upon arrival patient was increased to max dose Levophed for hypotension which has resolved. Titrating vasopressors as tolerated. Remains on sedation with 3 agents. Apparently patient was not ventilating her left lung Intra-Op. Noted to have subcu hematoma and trauma to postpharyngeal area. Questionable decrease cardiac wall motion noted in OR-> will order echocardiogram to further investigate. Patient received additional PRBC today. DIC panel resulted as normal. Patient BUN/creatinine did increase as well as noted to have lactic acidosis. May need IV bolus in addition to pressor use. Likely bronc with Pulmicort today as repeat CXR showed right possible pneumo hydrothorax 06/14: Antibiotics changed to Zosyn per ID, surgical packing removed from neck and makeshift [place] drain placed by surgery and old chronic thyroidectomy site. CXR was completed and RN heard gurgling and blood was noted on dressing. ST elevation noted on bedside monitor and patient was hypoxic. FiO2 increased t o 100%. However shortly after patient lost her pulse and ACLS was initiated. Patient received 3 rounds of epinephrine and ROSC was achieved. Stat portable CXR showed resolution of lower lobe collapse on the left and stable right-sided chest tube with hemothorax. CCM updated family. Patient H/H noted to be 7.2/23.2 and did RN to transfuse prepared PRBC which [facility] blood bank. Bedside echo completed. 06/15: Off sedation, intermittently follows commands, remains on the prednisone. Surgery will reassess airway on Thursday to see if any further support is required. Urine studies indicate prerenal, given IV bolus and started on Clinimix today. 06/16: Patient restarted on fentanyl drip due to hypertension. Given more LR due to CR improvement post LR yesterday. Patient started on Lantus subcu after given one-time dose of Lantus. PICC placed today. Patient had a CT chest today which showed no mediasinusitis but extensive subcutaneous air. 06/17: General Surgery recommended transferring patient to a ENT specialized facility. Placed a call to [facility] [place], spoke with the commercial insulator, Dr. Duckworth, who stated that a transfer is possible as long their ENT team accept the patient. Awaiting on a final response. Continue current supportive measures. Basal insulin adjusted for hyperglycemia. 06/18: JEREMIAS overnight. Hypertensive this am, PRN Hydralazine for SBP greater than 160. Remains hyperglycemic, patient is on IV steroids and TPN, basal insulin adjusted. Plan for possible transfer to [place] once an ICU bed is available. 06/19: Low SPO2 and hypotension overnight required Levophed for a short time. Overnight CXR noted with no significant changed. Patient is stable this am and off pressors. Plan for possible Trach and PEG today by General Surgery. 06/20: s/p Trach and PEG. Some bleeding overnight s/p X1 dose of Vitamin K. The bleeding resolved this am, H&H remains stable. Attempted a SAT this am, patient went into SVT, HR in the 160-170 which resolved once sedations were resumed. Plan is to continue to sedation for now, attempt to wean off propofol for a RASS goal of 0 to -2. D/C CCM plan is to wean off sedation as tolerated for PST for possible extubation. Okay to use PEGT per Gen. Surgery. Nutrition consulted for TF management, TF to start tonight once current TPN bag is completed. BG remains elevated, continue current SSI and basal for now, will start tapering IV steroids tomorrow. FWF added for hyponatremia. Wean off pressors as tolerated for MAP above 65. Possible transfer to [place] for ENT eval. 06/21: Overnight events and CXR noted. Worsen subcutaneous emphysema and Rt. Pneumo. CT remains in place and intact to cont. wall suction. Patient remains hemodynamically stable, still on low vent setting. will continue to monitor for now. Patient is also tolerating enteral nutrition via PEGT, TPN D/benjamín. H&H is also trending down, no s/s of any active bleeding. Will continue to trend H&H, transfuse if hgb is less than 7. FWF increased for hypernatremia. Still waiting on possible transfer to [place]. 06/22: JEREMIAS overnight. Subcutaneous emphysema is unchanged. CXR with mild improvement. Patient remains hemodynamically stable. Hydralazine added Q8hr for HTN. FWF increased for hypernatremia. Awaiting transfer to [place] for ENT eval. 06/23: Over 70cc from CT overnight, subcutaneous emphysema with mild improvement. Patient is also tolerating PST this am. Repeat CXR in the am. Patient is still hypertensive, will added norvasc for better control. Continue FWF for hypernatremia and electrolytes replacement as needed, repeat labs in the am. Sp betty in wbcs this am, patient remains afebrile and on IV Abx, most likely due to IV steroids continue to monitor. Continue to taper IV steroids. Hyperglycemia is also improving, continue current SSI and basal for now. 06/24: Patient is anemic today and transfused 1 unit PRBC, hypokalemia and hypophosphatemia repleted, will continue every 6 H/H for now to monitor for bleeding, steroid taper continues, still awaiting transfer to [place], PT/OT consulted, [facility] to talk to case management regarding LTAC transfer. 06/25: Patient responded appropriately to yesterday, placed on pressure support trial today. Per CCM hopefully T-piece in the next 24 to 48 hours and will continue decrease steroids further on . Lujan catheter removed today. 06/26: Patient started T-piece trials, H/H remained stable. Surgery plans to remove chest tube once weaned off ventilator. Increasing her water flush given hypernatremia. 06/27: Chest tube placed to waterseal, T-piece trial trials ongoing. Remains on Zosyn and steroids being tapered. Increasing free water flush, insulin and added 3 times daily insulin. 06/28: Hypernatremia persists, started on D5W for 1 L, replace potassium. Chest tube remains to waterseal. 06/29: Chest tube removed by surgery today, hyponatremia better and dextrose discontinued, hypokalemia noted which was repleted. Speech did see but patient had decreased voice quality and increased wob so aborted 06/30: Hypokalemia noted on labs will be repleted, leukocytosis continues to improve. Continues on T-piece trials and is following commands. 07/01: Transfer from ICU on 06/30. Patient was stable with a trach and T-piece on 5 L. Tolerating tube feeds. 07/02: Patient remains on T-piece with trach in place. On 5 L of O2. She is alert and responds appropriately but not well due to trach tube. Tolerating tube feeds. Appears comfortable. No complaints. No new events reported. Case management reports patient with plans for LTAC placement. 07/03: Patient remains on T-piece with trach in place. On 5 L of O2. Patient tolerating tube feeds. We will check CT of head, neck and chest per pulmonary and general surgery recommendations based on CBC this morning. If leukocytosis persists we will proceed with studies. Patient remains afebrile today. 07/04: s/p X1 dose of IV lasix, patient is now stable on the T-piece via trach at 28% and 5L. Patient remains afebrile, leukocytosis improved, and CXR wiht no significant change. PRN [place] added for pain management. Electrolytes repleted 07/05: Remains stable on T-piece. Complaint of lack of sleep and tiredness this am, Trazadone and melatonin added for sleep. Continue PT- increase mobility and possibly OOB to chair today. Continue pain management. Electrolytes repleted. Assessment and Plan #Acute Hypoxic Respiratory Failure -S/p emergent cricothyroidectomy with surgery with 8.00 ETT -s/p trach 06/19 with surgery (#[address]) -T-piece trials started 06/26 -ST: Unable to tolerate [place] valve on 06/28 -Transfer back in the ICU on 07/04 due to respiratory distress -X1 dose of Iv lasix administered -Patient is stable on T-piece at 28% 5L -ABG and CXR noted -CCM consulted, appreciate recommendations -Aspiration precaution HOB above 30 -Continue SPO2 monitoring for SPO2 goal above 92% #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 from dental caries #Leukocytosis-improved -CT neck with contrast showed a significant right floor of mild swelling with extension into the submandibular and submental spaces, significant thickening and inflammation involving the right pharyngeal wall, with the parapharyngeal an d retropharyngeal spaces at the level of the thyroid cartilage, epiglottis significantly swollen and so are the aryepiglottic folds resulting in significant airway narrowing at this level, no lymphadenopathy, symmetric submandibular and parathyroid glands, S few scattered caries but no periapical lucencies, nonspecific calcification along the right lateral oropharynx, no definite stone seen within the territory of the submandibular gland ducts, no suspicious rashes lesion -Infectious disease and general surgery consulted, appreciate recommendations -Patient remains afebrile, leukocytosis improved -Hemodynamic stable, not on any perssors -Continue IV Abx- Zosyn per ID #Hypokalemia -Probably r/t to IV diuretic -K repleted -Monitor and replace electrolytes as needed -Repeat BMP, mag, &phosp in the am #Right-sided pneumothorax -s/p Right chest tube removed 06/29 -06/13 bronchoscopy showed possible blood clot in left lung which may be acting as mucous plug however it was left in place due to possible bleeding inside lung if removed. -06/16 CT chest shows moderate right pneumothorax with collapse of right upper lobe, right thoracostomy tube terminates at the collapsed right upper lobe, bilateral bronchus opacities compatible with infectious/inflammatory etiology, bilateral small pleural effusion, extensive subcutaneous air, small fluid collection in the anterior mediastinum is nonspecific #Hypertension #s/p Cardiac arrest -Patient s/p cardiac arrest with ROSC on 06/14. -S/p vasopressor support with Levophed and Fabian-Synephrine -06/13 Echocardiogram EF 65-70% -BP is stable continue current anihypertensive regimen -Continue blood pressure monitor per protocol -PRN labetalol for SBP greater than 160 #Diabetes mellitus type 2 -Continue SSI Q6hrs -Lantus Qhs -Avoid Hypoglycemia #Coagulopathy-resolved #Acute blood loss anemia-resolved -Patient was on coumadin at home -Continue Lovenix SubQ -Transfuse hemoglobin less than 7 -Monitor for signs of bleeding #GI/DVT Prophylaxis -PPI- Pepcid -Continue AC-Lovenox -SCDs to BLE while in bed The high probability of a clinically significant, sudden or life threatening deterioration of the [multiple] system(s) required my full and direct attention, intervention and personal management. The aggregate critical care time was [60] minutes. This time is in addition to time spent performing reported procedures but includes the following: [x] Data Review and interpretation [x] Patient assessment and monitoring of vital signs [x] Documentation [x] Medication orders and management Disposition Plan: ICU Total Time Spent with Patient (Minutes): 60 History Interval history: Patient seen and examined at the bedside. Awake and alert, however, very emotional this am. Per RN patient didn't sleep well overnight due to discomfort. Patient denied any pain nor discomfort this am, but did voiced that she was tired. Otherwise JEREMIAS overnight. Hospitalist Physical - Constitutional Vitals: Temp Pulse Resp BP Pulse Ox 98.5 F 86 22 143/78 98 07/05/21 04:00 07/05/21 06:00 07/05/21 06:00 07/05/21 09:58 07/05/21 07:15 General appearance: Present: no acute distress, obese (Morbidly obese), other (On T-piece with trach in place.) - EENT Eyes: Present: PERRL ENT: hearing intact - Neck Neck: Present: normal ROM - Respiratory Respiratory effort: normal Respiratory: bilateral: rhonchi - Cardiovascular Rhythm: regular Heart Sounds: Present: S1 & S2 - Extremities Extremities: no ischemia, pulses intact, pulses symmetrical Extremity abnormal: edema - Peripheral Assessment Generalized Edema Type: Non-pitting Edema Degree: 2+ Capillary Refill: < 3 seconds Skin Temperature: Warm Peripheral Pulses: within normal limits - Abdominal General gastrointestinal: soft, non-distended, normal bowel sounds - Integumentary Integumentary: Present: warm, dry - Psychiatric Psychiatric: cooperative, depressed - Neurologic Neurologic: moves all extremities - Allied Health Allied health notes reviewed: nursing, case management HEART Score - HEART Score Troponin: Troponin T < 0.010 ng/mL (0.00-0.029) 06/11/21 23:21 Results - Labs CBC & Chem 7: 07/05/21 04:38 07/05/21 04:38 Labs: Laboratory Last Values WBC 7.7 K/mm3 (4.5-11.0) 07/05/21 04:38 RBC 2.95 M/mm3 (3.65-5.03) L 07/05/21 04:38 Hgb 7.8 gm/dl (10.1-14.3) L 07/05/21 04:38 Hct 23.9 % (30.3-42.9) L 07/05/21 04:38 MCV 81 fl (79-97) 07/05/21 04:38 MCH 27 pg (28-32) L 07/05/21 04:38 MCHC 33 % (30-34) 07/05/21 04:38 RDW 21.0 % (13.2-15.2) H 07/05/21 04:38 Plt Count 205 K/mm3 (140-440) 07/05/21 04:38 Lymph % (Auto) 6.1 % (13.4-35.0) L 07/04/21 05:13 [place] % (Auto) 6.6 % (0.0-7.3) 07/04/21 05:13 Eos % (Auto) 1.8 % (0.0-4.3) 07/04/21 05:13 Baso % (Auto) 0.5 % (0.0-1.8) 07/04/21 05:13 Lymph # (Auto) 0.6 K/mm3 (1.2-5.4) L 07/04/21 05:13 [place] # (Auto) 0.6 K/mm3 (0.0-0.8) 07/04/21 05:13 Eos # (Auto) 0.2 K/mm3 (0.0-0.4) 07/04/21 05:13 Baso # (Auto) 0.0 K/mm3 (0.0-0.1) 07/04/21 05:13 Add Manual Diff Complete 06/30/21 04:25 Total Counted 100 06/30/21 04:25 Seg Neutrophils % 85.0 % (40.0-70.0) H 07/04/21 05:13 Seg Neuts % (Manual) 81.0 % (40.0-70.0) H 06/30/21 04:25 Band Neutrophils % 0 % 06/30/21 04:25 Lymphocytes % (Manual) 10.0 % (13.4-35.0) L 06/30/21 04:25 Reactive Lymphs % (Man) 0 % 06/30/21 04:25 Monocytes % (Manual) 8.0 % (0.0-7.3) H 06/30/21 04:25 Eosinophils % (Manual) 1.0 % (0.0-4.3) 06/30/21 04:25 Basophils % (Manual) 0 % (0.0-1.8) 06/30/21 04:25 Metamyelocytes % 0 % 06/30/21 04:25 Myelocytes % 0 % 06/30/21 04:25 Promyelocytes % 0 % 06/30/21 04:25 Blast Cells % 0 % 06/30/21 04:25 Nucleated RBC % Not Reportable 06/30/21 04:25 Seg Neutrophils # 8.0 K/mm3 (1.8-7.7) H 07/04/21 05:13 Seg Neutrophils # Man 10.5 K/mm3 (1.8-7.7) H 06/30/21 04:25 Band Neutrophils # 0.0 K/mm3 06/30/21 04:25 Lymphocytes # (Manual) 1.3 K/mm3 (1.2-5.4) 06/30/21 04:25 Abs React Lymphs (Man) 0.0 K/mm3 06/30/21 04:25 Monocytes # (Manual) 1.0 K/mm3 (0.0-0.8) H 06/30/21 04:25 Eosinophils # (Manual) 0.1 K/mm3 (0.0-0.4) 06/30/21 04:25 Basophils # (Manual) 0.0 K/mm3 (0.0-0.1) 06/30/21 04:25 Metamyelocytes # 0.0 K/mm3 06/30/21 04:25 Myelocytes # 0.0 K/mm3 06/30/21 04:25 Promyelocytes # 0.0 K/mm3 06/30/21 04:25 Blast Cells # 0.0 K/mm3 06/30/21 04:25 WBC Morphology Not Reportable 06/30/21 04:25 Hypersegmented Neuts Not Reportable 06/30/21 04:25 Hyposegmented Neuts Not Reportable 06/30/21 04:25 Hypogranular Neuts Not Reportable 06/30/21 04:25 Smudge Cells Not Reportable 06/30/21 04:25 Toxic Granulation Not Reportable 06/30/21 04:25 Toxic Vacuolation Not Reportable 06/30/21 04:25 Dohle Bodies Not Reportable 06/30/21 04:25 Pelger-Huet Anomaly Not Reportable 06/30/21 04:25 Dennis Rods Not Reportable 06/30/21 04:25 Platelet Estimate Consistent w auto 06/30/21 04:25 Clumped Platelets Not Reportable 06/30/21 04:25 Plt Clumps, EDTA Not Reportable 06/30/21 04:25 Large Platelets Few 06/30/21 04:25 Giant Platelets Not Reportable 06/30/21 04:25 Platelet Satelliting Not Reportable 06/30/21 04:25 Plt Morphology Comment Not Reportable 06/30/21 04:25 RBC Morphology Not Reportable 06/30/21 04:25 Dimorphic RBCs Not Reportable 06/30/21 04:25 Polychromasia Rare 06/30/21 04:25 Hypochromasia 1+ 06/30/21 04:25 Poikilocytosis Not Reportable 06/30/21 04:25 Anisocytosis 1+ 06/30/21 04:25 Microcytosis Not Reportable 06/30/21 04:25 Macrocytosis Not Reportable 06/30/21 04:25 Spherocytes Not Reportable 06/30/21 04:25 Pappenheimer Bodies Not Reportable 06/30/21 04:25 Sickle Cells Not Reportable 06/30/21 04:25 Target Cells Rare 06/30/21 04:25 Tear Drop Cells Few 06/30/21 04:25 Ovalocytes Not Reportable 06/30/21 04:25 Stomatocytes Few 06/12/21 01:45 Helmet Cells Not Reportable 06/30/21 04:25 [place]ougar Bodies Not Reportable 06/30/21 04:25 Zortman Rings Not Reportable 06/30/21 04:25 Nelsy Cells Not Reportable 06/30/21 04:25 Bite Cells Not Reportable 06/30/21 04:25 Crenated Cell Not Reportable 06/30/21 04:25 Elliptocytes Not Reportable 06/30/21 04:25 Acanthocytes (Spur) Not Reportable 06/30/21 04:25 Rouleaux Not Reportable 06/30/21 04:25 Hemoglobin C Crystals Not Reportable 06/30/21 04:25 Schistocytes Not Reportable 06/30/21 04:25 Malaria parasites Not Reportable 06/30/21 04:25 Edin Bodies Not Reportable 06/30/21 04:25 Hem Pathologist Commnt No 06/30/21 04:25 PT 18.3 Sec. (12.2-14.9) H 06/20/21 04:33 INR 1.37 (0.87-1.13) H 06/20/21 04:33 APTT 26.4 Sec. (24.2-36.6) 06/13/21 Unknown Fibrinogen 546 mg/dl (211-480) H 06/13/21 Unknown D-Dimer 1244.63 ng/mlDDU (0-234) H 06/13/21 Unknown ABG pH 7.448 pH Units (7.350-7.450) 07/04/21 01:44 POC ABG pCO2 25.6 mmHg (32.0-48.0) L 06/13/21 04:31 ABG pCO2 39.5 mm Hg 07/04/21 01:44 POC ABG pO2 138.8 mmHg (83-108) H 06/13/21 04:31 ABG pO2 107.7 mm Hg (80.0-90.0) H 07/04/21 01:44 POC ABG HCO3 21.4 06/13/21 04:31 ABG HCO3 26.7 mmol/L (20.0-26.0) H 07/04/21 01:44 ABG O2 Saturation 98.0 % (95.0-99.0) 07/04/21 01:44 ABG O2 Content 10.3 (0.0-44) 07/04/21 01:44 POC ABG Base Excess -0.7 06/13/21 04:31 ABG Base Excess 2.5 mmol/L (-2.0-3.0) 07/04/21 01:44 ABG Hemoglobin 7.5 gm/dl (12.0-16.0) L 07/04/21 01:44 ABG Oxyhemoglobin 98.1 (94-98) H 06/13/21 04:31 ABG Carboxyhemoglobin 1.6 % (0.0-5.0) 07/04/21 01:44 ABG Methemoglobin 0.6 % (0.0-1.5) 07/04/21 01:44 Oxyhemoglobin 95.9 % (95.0-99.0) 07/04/21 01:44 Carboxyhemoglobin 0.8 (0.5-1.5) 06/13/21 04:31 FiO2 35 % 07/04/21 01:44 FiO2 % 40.0 06/13/21 04:31 Sodium 138 mmol/L (137-145) 07/05/21 04:38 Potassium 3.0 mmol/L (3.6-5.0) L 07/05/21 04:38 Chloride 102.0 mmol/L (98-107) 07/05/21 04:38 Carbon Dioxide 24 mmol/L (22-30) 07/05/21 04:38 Anion Gap 15 mmol/L 07/05/21 04:38 BUN 18 mg/dL (7-17) H 07/05/21 04:38 Creatinine 0.8 mg/dL (0.6-1.2) 07/05/21 04:38 Estimated GFR > 60 ml/min 07/05/21 04:38 BUN/Creatinine Ratio 23 % 07/05/21 04:38 Glucose 174 mg/dL (65-100) H 07/05/21 04:38 POC Glucose 163 mg/dL (70-105) H 07/05/21 05:15 Lactic Acid 5.30 mmol/L (0.7-2.0) H* 06/13/21 15:45 Calcium 8.4 mg/dL (8.4-10.2) 07/05/21 04:38 Phosphorus 2.20 mg/dL (2.5-4.5) L 07/05/21 04:38 Magnesium 1.70 mg/dL (1.7-2.3) 07/05/21 04:38 Total Bilirubin 0.40 mg/dL (0.1-1.2) 06/15/21 03:56 AST 64 units/L (5-40) H 06/15/21 03:56 ALT 106 units/L (7-56) H 06/15/21 03:56 Alkaline Phosphatase 55 units/L (35-129) 06/15/21 03:56 Troponin T < 0.010 ng/mL (0.00-0.029) 06/11/21 23:21 C-Reactive Protein 3.30 mg/dL (0.00-1.30) H 06/16/21 04:32 Total Protein 5.1 g/dL (6.3-8.2) L 06/15/21 03:56 Albumin 2.9 g/dL (3.9-5) L 06/15/21 03:56 Albumin/Globulin Ratio 1.3 % 06/15/21 03:56 Triglycerides 254 mg/dL (2-149) H 06/21/21 04:42 Urine Color Yellow (Yellow) 06/12/21 17:00 Urine Turbidity Clear (Clear) 06/12/21 17:00 Urine pH 5.0 (5.0-7.0) 06/12/21 17:00 Ur Specific [place] 1.035 (1.003-1.030) H 06/12/21 17:00 Urine Protein 30 mg/dl mg/dL (Negative) 06/12/21 17:00 Urine Glucose (UA) 50 mg/dL (Negative) 06/12/21 17:00 Urine Ketones Tr mg/dL (Negative) 06/12/21 17:00 Urine Blood Neg (Negative) 06/12/21 17:00 Urine Nitrite Neg (Negative) 06/12/21 17:00 Urine Bilirubin Neg (Negative) 06/12/21 17:00 Urine Urobilinogen < 2.0 mg/dL (<2.0) 06/12/21 17:00 Ur Leukocyte Esterase Neg (Negative) 06/12/21 17:00 Urine WBC (Auto) < 1.0 /HPF (0.0-6.0) 06/12/21 17:00 Urine RBC (Auto) < 1.0 /HPF (0.0-6.0) 06/12/21 17:00 Urine Creatinine 81.1 mg/dL (0.1-20.0) H 06/15/21 10:40 Urine Sodium 42 mmol/L 06/15/21 10:40 Coronavirus (PCR) Negative (Negative) 06/12/21 09:50 Blood Type O POSITIVE 06/24/21 06:40 Antibody Screen Negative 06/24/21 06:40 Crossmatch See Detail 06/24/21 06:40 Lujan/IV: Voiding Method Indwelling Catheter Active Medications - Current Medications Current Medications: Generic Name Dose Route Start Last Admin Trade Name Freq PRN Reason Stop Dose Admin Hydrocodone Bitart/Acetaminophen 1 each 07/04/21 10:00 07/05/21 07:07 Hydrocodone/Acetaminophen 5-325 Mg Tab PO 1 each Q6H PRN Administration Pain, Moderate (4-6) Amlodipine Besylate 5 mg 06/23/21 10:00 07/05/21 09:58 Amlodipine 5 Mg Tab PO 5 mg QDAY JOLENE Administration Lipase/Protease/Amylase 1 each 06/19/21 19:20 Lipase 10,500/Protease 25,000/Amylase 43,750 (Units) Dr Melgar FEEDTUBE PRN PRN For Clogged Feeding Tube Atorvastatin Calcium 20 mg 06/22/21 22:00 07/04/21 22:13 Atorvastatin 20 Mg Tab PO 20 mg QHS JOLENE Administration Enoxaparin Sodium 40 mg 06/30/21 22:00 07/04/21 22:13 Enoxaparin 40 Mg/0.4 Ml Inj SUB-Q 40 mg QDAY@2200 JOLENE Administration Protocol Famotidine 20 mg 06/24/21 22:00 07/05/21 09:58 Famotidine 20 Mg Tab FEEDTUBE 20 mg BID JOLENE Administration Hydralazine HCl 100 mg 06/22/21 19:00 07/05/21 05:29 Hydralazine 100 Mg Tab FEEDTUBE 100 mg Q8HR JOLENE Administration Hydrogen Peroxide/Benzyl Alcohol 1 applic 07/02/21 19:35 Hydrogen Peroxide 118 Ml Solution TP ONCE JOLENE Magnesium Sulfate 2 gm in 50 mls @ 25 mls/hr 07/05/21 08:30 07/05/21 09:30 Magnesium Sulfate 2gm/50ml IV 07/05/21 12:30 25 mls/hr ONCE@0830 JOLENE Administration Insulin Glargine 30 units 07/04/21 22:00 07/04/21 22:11 Insulin Glargine 100 Units/Ml SUB-Q 30 units QHS JOLENE Administration Insulin Human Lispro 0 unit 06/12/21 12:00 07/05/21 05:28 Insulin Lispro 100 Unit/Ml SUB-Q 3 unit Q6HR JOLENE Administration Protocol Labetalol HCl 10 mg 06/21/21 18:00 06/27/21 00:53 Labetalol 20 Mg/4 Ml Inj IV 10 mg Q4HR PRN Administration Hypertension Melatonin 5 mg 07/04/21 18:56 07/04/21 23:38 Melatonin 5 Mg Tab PO 5 mg QHS PRN Administration Sleep Metoclopramide HCl 10 mg 06/11/21 20:42 Metoclopramide 10 Mg/2 Ml Inj IV Q6H PRN Nausea And Vomiting Ondansetron HCl 4 mg 06/11/21 20:42 Ondansetron 4 Mg/2 Ml Inj IV Q3H PRN Nausea And Vomiting Potassium Chloride 40 meq 07/05/21 09:00 07/05/21 09:57 Potassium Chloride 20 Meq Packet FEEDTUBE 07/05/21 13:00 40 meq ONCE@0900 JOLENE Administration Simple Syrup 15 ml 06/19/21 19:20 Simple Syrup 15 Ml FEEDTUBE PRN PRN Hypoglycemia Simple Syrup 30 ml 06/19/21 19:20 Simple Syrup 15 Ml FEEDTUBE PRN PRN Hypoglycemia Sodium Bicarbonate 325 mg 06/19/21 19:20 Sodium Bicarbonate 325 Mg Tab FEEDTUBE PRN PRN For Clogged Feeding Tube Sodium Chloride 10 ml 06/11/21 22:00 07/05/21 09:58 Sodium Chloride 0.9% 10 Ml Flush Syringe IV 10 ml BID JOLENE Administration Sodium Chloride 10 ml 06/11/21 20:42 Sodium Chloride 0.9% 10 Ml Flush Syringe IV PRN PRN LINE FLUSH Nutrition/Malnutrition Assess - Dietary Evaluation Nutrition/Malnutrition Findings: Nutrition Notes Start: 06/16/21 12:10 Freq: Status: Active Protocol: Document 07/01/21 15:58 CANDIDO (Rec: 07/01/21 16:19 CANDIDO [id number]) Nutrition Notes Initial or Follow up Reassessment Current Diagnosis Diabetes,Sepsis,Hypertension, Respiratory Failure Other Pertinent Diagnosis Jeremiah's Angina, (R) Pneumothorax, Coagulopathy, s/ pCardiac Arrest, Gout... Current Diet TF-Vital AF 1.2 Quan @ 50 ml/hr (since D 06/21). Labs/Tests 07/01: Glu 177. Pertinent Medications 07/01: Insulin, others nutritionally unremarkable. Height 5 ft 8 in Weight 119.9 kg [place] Body Weight (kg) 63.63 BMI 40.1 Weight change and time frame 10.584 Kg body weight gain in 15 days reported Weight Status Morbidly Obese Subjective/Other Information RD consult for routine F/U on TF tolerance. TF continues as prescribed, with no significant events noted. Pt continues on Mechanical Ventilation through Tracheostomy, well tolerated, according to Progress notes. Hypernatremia controlled, flush backed off to 80 ml Q 4 hr. Pt still waiting for transfer to [place] or [facility]. Percent of energy/protein needs met: Prescribed Vital AF 1.2 Quan @ 50 ml/hr provides for energy/ protein needs (1,440 Kcal/90 g ) during LOS; 105% Kcal and 71 % AA. Burn Absent Trauma Absent GI Symptoms Other Difficulty In Swallowing,Chewing Food Allergy No Skin Integrity/Comment Surgical wounds. Current % PO Other Minimum of two criteria No #1 Nutrition Diagnosis Inadequate oral intake Diagnosis Progress(for reassessment Continues documentation) Is patient on ventilator? Yes Is Patient Ambulatory and/or Out of Bed No REE-([facility]-confined to bed) [phone] Calculation Used for Recommendations 65-70% energy needs Additional Notes Energy needs: 1280-1379kcal/ day Pro needs 2g/kg IBW: 127g/day Fluid needs 1ml/kcal Nutrition Intervention Nutrition Support: Continue Vital AF 1.2 Quan @ 50 ml/hr. Flush: 80 ml water flush Q 4 hr. Kcal 1,440 Protein (gm) 90 Carbohydrates (gm) 133 Fat (gm) 65 Fluid (mL) 973 Fiber (gm) 6 % RDI: 105% Kcal; 71% AA. Goal #1 Provide at least 75% of energy /protein needs through Enteral Feeding during LOS. Goal #2 Maintain body weight within +/ -3% of admission body weight during LOS. Follow-Up By: 07/08/21 Additional Comments Continue monitoring Mechanical Ventilation, Na/Flush, TF tolerance and BM. <MIKE CORTEZ - Last Filed: 07/06/21 07:01> Assessment and Plan Assessment and plan: I saw and evaluated the patient. I agree with the findings and the plan of care as documented in the Nurse Practitioner's~note, with the following corrections and additions. Hospitalist Physical - Constitutional Vitals: Temp Pulse Resp BP Pulse Ox 99.3 F 94 H 19 134/73 99 07/06/21 04:00 07/06/21 06:00 07/06/21 05:31 07/06/21 06:00 07/06/21 06:00 HEART Score - HEART Score Troponin: Troponin T < 0.010 ng/mL (0.00-0.029) 06/11/21 23:21 Results - Labs CBC & Chem 7: 07/05/21 04:38 07/06/21 04:39 Labs: Laboratory Last Values WBC 7.7 K/mm3 (4.5-11.0) 07/05/21 04:38 RBC 2.95 M/mm3 (3.65-5.03) L 07/05/21 04:38 Hgb 7.8 gm/dl (10.1-14.3) L 07/05/21 04:38 Hct 23.9 % (30.3-42.9) L 07/05/21 04:38 MCV 81 fl (79-97) 07/05/21 04:38 MCH 27 pg (28-32) L 07/05/21 04:38 MCHC 33 % (30-34) 07/05/21 04:38 RDW 21.0 % (13.2-15.2) H 07/05/21 04:38 Plt Count 205 K/mm3 (140-440) 07/05/21 04:38 Lymph % (Auto) 6.1 % (13.4-35.0) L 07/04/21 05:13 [place] % (Auto) 6.6 % (0.0-7.3) 07/04/21 05:13 Eos % (Auto) 1.8 % (0.0-4.3) 07/04/21 05:13 Baso % (Auto) 0.5 % (0.0-1.8) 07/04/21 05:13 Lymph # (Auto) 0.6 K/mm3 (1.2-5.4) L 07/04/21 05:13 [place] # (Auto) 0.6 K/mm3 (0.0-0.8) 07/04/21 05:13 Eos # (Auto) 0.2 K/mm3 (0.0-0.4) 07/04/21 05:13 Baso # (Auto) 0.0 K/mm3 (0.0-0.1) 07/04/21 05:13 Add Manual Diff Complete 06/30/21 04:25 Total Counted 100 06/30/21 04:25 Seg Neutrophils % 85.0 % (40.0-70.0) H 07/04/21 05:13 Seg Neuts % (Manual) 81.0 % (40.0-70.0) H 06/30/21 04:25 Band Neutrophils % 0 % 06/30/21 04:25 Lymphocytes % (Manual) 10.0 % (13.4-35.0) L 06/30/21 04:25 Reactive Lymphs % (Man) 0 % 06/30/21 04:25 Monocytes % (Manual) 8.0 % (0.0-7.3) H 06/30/21 04:25 Eosinophils % (Manual) 1.0 % (0.0-4.3) 06/30/21 04:25 Basophils % (Manual) 0 % (0.0-1.8) 06/30/21 04:25 Metamyelocytes % 0 % 06/30/21 04:25 Myelocytes % 0 % 06/30/21 04:25 Promyelocytes % 0 % 06/30/21 04:25 Blast Cells % 0 % 06/30/21 04:25 Nucleated RBC % Not Reportable 06/30/21 04:25 Seg Neutrophils # 8.0 K/mm3 (1.8-7.7) H 07/04/21 05:13 Seg Neutrophils # Man 10.5 K/mm3 (1.8-7.7) H 06/30/21 04:25 Band Neutrophils # 0.0 K/mm3 06/30/21 04:25 Lymphocytes # (Manual) 1.3 K/mm3 (1.2-5.4) 06/30/21 04:25 Abs React Lymphs (Man) 0.0 K/mm3 06/30/21 04:25 Monocytes # (Manual) 1.0 K/mm3 (0.0-0.8) H 06/30/21 04:25 Eosinophils # (Manual) 0.1 K/mm3 (0.0-0.4) 06/30/21 04:25 Basophils # (Manual) 0.0 K/mm3 (0.0-0.1) 06/30/21 04:25 Metamyelocytes # 0.0 K/mm3 06/30/21 04:25 Myelocytes # 0.0 K/mm3 06/30/21 04:25 Promyelocytes # 0.0 K/mm3 06/30/21 04:25 Blast Cells # 0.0 K/mm3 06/30/21 04:25 WBC Morphology Not Reportable 06/30/21 04:25 Hypersegmented Neuts Not Reportable 06/30/21 04:25 Hyposegmented Neuts Not Reportable 06/30/21 04:25 Hypogranular Neuts Not Reportable 06/30/21 04:25 Smudge Cells Not Reportable 06/30/21 04:25 Toxic Granulation Not Reportable 06/30/21 04:25 Toxic Vacuolation Not Reportable 06/30/21 04:25 Dohle Bodies Not Reportable 06/30/21 04:25 Pelger-Huet Anomaly Not Reportable 06/30/21 04:25 Dennis Rods Not Reportable 06/30/21 04:25 Platelet Estimate Consistent w auto 06/30/21 04:25 Clumped Platelets Not Reportable 06/30/21 04:25 Plt Clumps, EDTA Not Reportable 06/30/21 04:25 Large Platelets Few 06/30/21 04:25 Giant Platelets Not Reportable 06/30/21 04:25 Platelet Satelliting Not Reportable 06/30/21 04:25 Plt Morphology Comment Not Reportable 06/30/21 04:25 RBC Morphology Not Reportable 06/30/21 04:25 Dimorphic RBCs Not Reportable 06/30/21 04:25 Polychromasia Rare 06/30/21 04:25 Hypochromasia 1+ 06/30/21 04:25 Poikilocytosis Not Reportable 06/30/21 04:25 Anisocytosis 1+ 06/30/21 04:25 Microcytosis Not Reportable 06/30/21 04:25 Macrocytosis Not Reportable 06/30/21 04:25 Spherocytes Not Reportable 06/30/21 04:25 Pappenheimer Bodies Not Reportable 06/30/21 04:25 Sickle Cells Not Reportable 06/30/21 04:25 Target Cells Rare 06/30/21 04:25 Tear Drop Cells Few 06/30/21 04:25 Ovalocytes Not Reportable 06/30/21 04:25 Stomatocytes Few 06/12/21 01:45 Helmet Cells Not Reportable 06/30/21 04:25 Sal[place]anca-Cougar Bodies Not Reportable 06/30/21 04:25 Zortman Rings Not Reportable 06/30/21 04:25 Nelsy Cells Not Reportable 06/30/21 04:25 Bite Cells Not Reportable 06/30/21 04:25 Crenated Cell Not Reportable 06/30/21 04:25 Elliptocytes Not Reportable 06/30/21 04:25 Acanthocytes (Spur) Not Reportable 06/30/21 04:25 Rouleaux Not Reportable 06/30/21 04:25 Hemoglobin C Crystals Not Reportable 06/30/21 04:25 Schistocytes Not Reportable 06/30/21 04:25 Malaria parasites Not Reportable 06/30/21 04:25 Edin Bodies Not Reportable 06/30/21 04:25 Hem Pathologist Commnt No 06/30/21 04:25 PT 18.3 Sec. (12.2-14.9) H 06/20/21 04:33 INR 1.37 (0.87-1.13) H 06/20/21 04:33 APTT 26.4 Sec. (24.2-36.6) 06/13/21 Unknown Fibrinogen 546 mg/dl (211-480) H 06/13/21 Unknown D-Dimer 1244.63 ng/mlDDU (0-234) H 06/13/21 Unknown ABG pH 7.448 pH Units (7.350-7.450) 07/04/21 01:44 POC ABG pCO2 25.6 mmHg (32.0-48.0) L 06/13/21 04:31 ABG pCO2 39.5 mm Hg 07/04/21 01:44 POC ABG pO2 138.8 mmHg (83-108) H 06/13/21 04:31 ABG pO2 107.7 mm Hg (80.0-90.0) H 07/04/21 01:44 POC ABG HCO3 21.4 06/13/21 04:31 ABG HCO3 26.7 mmol/L (20.0-26.0) H 07/04/21 01:44 ABG O2 Saturation 98.0 % (95.0-99.0) 07/04/21 01:44 ABG O2 Content 10.3 (0.0-44) 07/04/21 01:44 POC ABG Base Excess -0.7 06/13/21 04:31 ABG Base Excess 2.5 mmol/L (-2.0-3.0) 07/04/21 01:44 ABG Hemoglobin 7.5 gm/dl (12.0-16.0) L 07/04/21 01:44 ABG Oxyhemoglobin 98.1 (94-98) H 06/13/21 04:31 ABG Carboxyhemoglobin 1.6 % (0.0-5.0) 07/04/21 01:44 ABG Methemoglobin 0.6 % (0.0-1.5) 07/04/21 01:44 Oxyhemoglobin 95.9 % (95.0-99.0) 07/04/21 01:44 Carboxyhemoglobin 0.8 (0.5-1.5) 06/13/21 04:31 FiO2 35 % 07/04/21 01:44 FiO2 % 40.0 06/13/21 04:31 Sodium 140 mmol/L (137-145) 07/06/21 04:39 Potassium 3.4 mmol/L (3.6-5.0) L 07/06/21 04:39 Chloride 105.0 mmol/L (98-107) 07/06/21 04:39 Carbon Dioxide 24 mmol/L (22-30) 07/06/21 04:39 Anion Gap 14 mmol/L 07/06/21 04:39 BUN 14 mg/dL (7-17) 07/06/21 04:39 Creatinine 0.6 mg/dL (0.6-1.2) 07/06/21 04:39 Estimated GFR > 60 ml/min 07/06/21 04:39 BUN/Creatinine Ratio 23 % 07/06/21 04:39 Glucose 180 mg/dL (65-100) H 07/06/21 04:39 POC Glucose 183 mg/dL (70-105) H 07/06/21 05:13 Lactic Acid 5.30 mmol/L (0.7-2.0) H* 06/13/21 15:45 Calcium 8.4 mg/dL (8.4-10.2) 07/06/21 04:39 Phosphorus 2.70 mg/dL (2.5-4.5) D 07/06/21 04:39 Magnesium 1.80 mg/dL (1.7-2.3) 07/06/21 04:39 Total Bilirubin 0.40 mg/dL (0.1-1.2) 06/15/21 03:56 AST 64 units/L (5-40) H 06/15/21 03:56 ALT 106 units/L (7-56) H 06/15/21 03:56 Alkaline Phosphatase 55 units/L (35-129) 06/15/21 03:56 Troponin T < 0.010 ng/mL (0.00-0.029) 06/11/21 23:21 C-Reactive Protein 3.30 mg/dL (0.00-1.30) H 06/16/21 04:32 Total Protein 5.1 g/dL (6.3-8.2) L 06/15/21 03:56 Albumin 2.9 g/dL (3.9-5) L 06/15/21 03:56 Albumin/Globulin Ratio 1.3 % 06/15/21 03:56 Triglycerides 254 mg/dL (2-149) H 06/21/21 04:42 Urine Color Yellow (Yellow) 06/12/21 17:00 Urine Turbidity Clear (Clear) 06/12/21 17:00 Urine pH 5.0 (5.0-7.0) 06/12/21 17:00 Ur Specific [place] 1.035 (1.003-1.030) H 06/12/21 17:00 Urine Protein 30 mg/dl mg/dL (Negative) 06/12/21 17:00 Urine Glucose (UA) 50 mg/dL (Negative) 06/12/21 17:00 Urine Ketones Tr mg/dL (Negative) 06/12/21 17:00 Urine Blood Neg (Negative) 06/12/21 17:00 Urine Nitrite Neg (Negative) 06/12/21 17:00 Urine Bilirubin Neg (Negative) 06/12/21 17:00 Urine Urobilinogen < 2.0 mg/dL (<2.0) 06/12/21 17:00 Ur Leukocyte Esterase Neg (Negative) 06/12/21 17:00 Urine WBC (Auto) < 1.0 /HPF (0.0-6.0) 06/12/21 17:00 Urine RBC (Auto) < 1.0 /HPF (0.0-6.0) 06/12/21 17:00 Urine Creatinine 81.1 mg/dL (0.1-20.0) H 06/15/21 10:40 Urine Sodium 42 mmol/L 06/15/21 10:40 Coronavirus (PCR) Negative (Negative) 06/12/21 09:50 Blood Type O POSITIVE 06/24/21 06:40 Antibody Screen Negative 06/24/21 06:40 Crossmatch See Detail 06/24/21 06:40 Lujan/IV: Voiding Method Indwelling Catheter Active Medications - Current Medications Current Medications: Generic Name Dose Route Start Last Admin Trade Name Freq PRN Reason Stop Dose Admin Hydrocodone Bitart/Acetaminophen 1 each 07/04/21 10:00 07/05/21 19:01 Hydrocodone/Acetaminophen 5-325 Mg Tab PO 1 each Q6H PRN Administration Pain, Moderate (4-6) Amlodipine Besylate 5 mg 06/23/21 10:00 07/05/21 09:58 Amlodipine 5 Mg Tab PO 5 mg QDAY JOLENE Administration Lipase/Protease/Amylase 1 each 06/19/21 19:20 Lipase 10,500/Protease 25,000/Amylase 43,750 (Units) Dr Melgar FEEDTUBE PRN PRN For Clogged Feeding Tube Atorvastatin Calcium 20 mg 06/22/21 22:00 07/05/21 21:36 Atorvastatin 20 Mg Tab PO 20 mg QHS JOLENE Administration Enoxaparin Sodium 40 mg 06/30/21 22:00 07/05/21 21:37 Enoxaparin 40 Mg/0.4 Ml Inj SUB-Q 40 mg QDAY@2200 [facility] Administration Protocol Famotidine 20 mg 06/24/21 22:00 07/05/21 21:37 Famotidine 20 Mg Tab FEEDTUBE 20 mg BID [facility] Administration Hydralazine HCl 100 mg 06/22/21 19:00 07/06/21 05:35 Hydralazine 100 Mg Tab FEEDTUBE 100 mg Q8HR [facility] Administration Hydrogen Peroxide/Benzyl Alcohol 1 applic 07/02/21 19:35 Hydrogen Peroxide 118 Ml Solution TP ONCE JOLENE Insulin Glargine 30 units 07/04/21 22:00 07/05/21 22:25 Insulin Glargine 100 Units/Ml SUB-Q 30 units QHS [facility] Administration Insulin Human Lispro 0 unit 06/12/21 12:00 07/06/21 06:17 Insulin Lispro 100 Unit/Ml SUB-Q 3 unit Q6HR [facility] Administration Protocol Labetalol HCl 10 mg 06/21/21 18:00 07/05/21 18:52 Labetalol 20 Mg/4 Ml Inj IV 10 mg Q4HR PRN Administration Hypertension Melatonin 5 mg 07/05/21 22:00 07/05/21 21:38 Melatonin 5 Mg Tab PO 5 mg QHS [facility] Administration Metoclopramide HCl 10 mg 06/11/21 20:42 Metoclopramide 10 Mg/2 Ml Inj IV Q6H PRN Nausea And Vomiting Ondansetron HCl 4 mg 06/11/21 20:42 Ondansetron 4 Mg/2 Ml Inj IV Q3H PRN Nausea And Vomiting Simple Syrup 15 ml 06/19/21 19:20 Simple Syrup 15 Ml FEEDTUBE PRN PRN Hypoglycemia Simple Syrup 30 ml 06/19/21 19:20 Simple Syrup 15 Ml FEEDTUBE PRN PRN Hypoglycemia Sodium Bicarbonate 325 mg 06/19/21 19:20 Sodium Bicarbonate 325 Mg Tab FEEDTUBE PRN PRN For Clogged Feeding Tube Sodium Chloride 10 ml 06/11/21 22:00 07/05/21 22:26 Sodium Chloride 0.9% 10 Ml Flush Syringe IV Not Given BID JOLENE Sodium Chloride 10 ml 06/11/21 20:42 Sodium Chloride 0.9% 10 Ml Flush Syringe IV PRN PRN LINE FLUSH Trazodone HCl 100 mg 07/05/21 22:00 07/05/21 21:37 Trazodone 50 Mg Tab PO 100 mg QHS JOLENE Administration Nutrition/Malnutrition Assess - Dietary Evaluation Nutrition/Malnutrition Findings: Nutrition Notes Start: 06/16/21 12:10 Freq: Status: Active Protocol: Document 07/01/21 15:58 CANDIDO (Rec: 07/01/21 16:19 CANDIDO [id number]) Nutrition Notes Initial or Follow up Reassessment Current Diagnosis Diabetes,Sepsis,Hypertension, Respiratory Failure Other Pertinent Diagnosis Jeremiah's Angina, (R) Pneumothorax, Coagulopathy, s/ pCardiac Arrest, Gout... Current Diet TF-Vital AF 1.2 Quan @ 50 ml/hr (since D 06/21). Labs/Tests 07/01: Glu 177. Pertinent Medications 07/01: Insulin, others nutritionally unremarkable. Height 5 ft 8 in Weight 119.9 kg [place] Body Weight (kg) 63.63 BMI 40.1 Weight change and time frame 10.584 Kg body weight gain in 15 days reported Weight Status Morbidly Obese Subjective/Other Information RD consult for routine F/U on TF tolerance. TF continues as prescribed, with no significant events noted. Pt continues on Mechanical Ventilation through Tracheostomy, well tolerated, according to Progress notes. Hypernatremia controlled, flush backed off to 80 ml Q 4 hr. Pt still waiting for transfer to [place] or [facility]. Percent of energy/protein needs met: Prescribed Vital AF 1.2 Quan @ 50 ml/hr provides for energy/ protein needs (1,440 Kcal/90 g ) during LOS; 105% Kcal and 71 % AA. Burn Absent Trauma Absent GI Symptoms Other Difficulty In Swallowing,Chewing Food Allergy No Skin Integrity/Comment Surgical wounds. Current % PO Other Minimum of two criteria No #1 Nutrition Diagnosis Inadequate oral intake Diagnosis Progress(for reassessment Continues documentation) Is patient on ventilator? Yes Is Patient Ambulatory and/or Out of Bed No REE-([facility]-confined to bed) [phone] Calculation Used for Recommendations 65-70% energy needs Additional Notes Energy needs: 1280-1379kcal/ day Pro needs 2g/kg IBW: 127g/day Fluid needs 1ml/kcal Nutrition Intervention Nutrition Support: Continue Vital AF 1.2 Quan @ 50 ml/hr. Flush: 80 ml water flush Q 4 hr. Kcal 1,440 Protein (gm) 90 Carbohydrates (gm) 133 Fat (gm) 65 Fluid (mL) 973 Fiber (gm) 6 % RDI: 105% Kcal; 71% AA. Goal #1 Provide at least 75% of energy /protein needs through Enteral Feeding during LOS. Goal #2 Maintain body weight within +/ -3% of admission body weight during LOS. Follow-Up By: 07/08/21 Additional Comments Continue monitoring Mechanical Ventilation, Na/Flush, TF tolerance and BM.
--- NOTE | 2021-07-05 13:57 | Progress Note ---
Assessment and Plan Doing well from airway issues. Lack of movement of extremities is of some concern. Consider neurology consult and pt ot for maintenance of rom/ splinting in positions to avoid contractures. Patient with return to the ICU because of respiratory distress possibly mucous plug appears good now. Continue observation in the ICU swallow eval would be appreciated before the weekend could possibly can begin p.o. intake with liquids and full liquids. Subjective Date of service: 07/05/21 Narrative: Patient was transferred to the ICU last night for respiratory distress and change in mental status and management due to mucous plug. Shiley tracheostomy at this time appear functional. Wound check is also good no evidence of any soft tissue infection. Sutures remain in place. Patient is tolerating gastric tube feedings will ask for a swallow eval we can try to begin some p.o. intake hopefully before the weekend. Objective Vital Signs - 12hr 07/05/21 07/05/21 07/05/21 02:00 02:30 03:00 Temperature Pulse Rate 108 H 82 87 Pulse Rate [ From Monitor] Respiratory 18 15 15 Rate Blood Pressure 130/70 130/70 125/66 O2 Sat by Pulse 95 98 97 Oximetry O2 Sat by Pulse Oximetry [ Assessment] 07/05/21 07/05/21 07/05/21 03:30 04:00 04:30 Temperature 98.5 F Pulse Rate 109 H 98 H 91 H Pulse Rate [ 90 90 From Monitor] Respiratory 20 19 19 Rate Blood Pressure 125/66 127/82 127/82 O2 Sat by Pulse 98 97 97 Oximetry O2 Sat by Pulse Oximetry [ Assessment] 07/05/21 07/05/21 07/05/21 05:00 05:30 06:00 Temperature Pulse Rate 101 H 88 86 Pulse Rate [ From Monitor] Respiratory 25 H 26 H 22 Rate Blood Pressure 139/91 139/91 147/82 O2 Sat by Pulse 96 99 96 Oximetry O2 Sat by Pulse Oximetry [ Assessment] 07/05/21 07/05/21 07/05/21 06:30 07:00 07:15 Temperature Pulse Rate 98 H 99 H Pulse Rate [ From Monitor] Respiratory 30 H 25 H Rate Blood Pressure 147/82 144/73 O2 Sat by Pulse 97 97 98 Oximetry O2 Sat by Pulse 98 Oximetry [ Assessment] 07/05/21 07/05/21 07/05/21 07:30 08:00 08:30 Temperature 99.4 F Pulse Rate 104 H 96 H 104 H Pulse Rate [ 96 H From Monitor] Respiratory 31 H 22 23 Rate Blood Pressure 144/73 142/67 142/67 O2 Sat by Pulse 98 97 98 Oximetry O2 Sat by Pulse Oximetry [ Assessment] 07/05/21 07/05/21 07/05/21 09:00 09:30 09:58 Temperature Pulse Rate 106 H 111 H Pulse Rate [ From Monitor] Respiratory 25 H 18 Rate Blood Pressure 143/78 143/78 143/78 O2 Sat by Pulse 97 98 Oximetry O2 Sat by Pulse Oximetry [ Assessment] 07/05/21 07/05/21 07/05/21 10:00 10:30 11:00 Temperature Pulse Rate 102 H 98 H 97 H Pulse Rate [ From Monitor] Respiratory 30 H 14 20 Rate Blood Pressure 143/78 154/81 154/81 O2 Sat by Pulse 96 98 98 Oximetry O2 Sat by Pulse Oximetry [ Assessment] 07/05/21 07/05/21 07/05/21 11:30 12:00 12:30 Temperature 99.6 F Pulse Rate 93 H 92 H 99 H Pulse Rate [ 97 H From Monitor] Respiratory 15 28 H 36 H Rate Blood Pressure 169/92 158/86 158/86 O2 Sat by Pulse 100 96 96 Oximetry O2 Sat by Pulse Oximetry [ Assessment] 07/05/21 13:00 Temperature Pulse Rate 96 H Pulse Rate [ From Monitor] Respiratory 26 H Rate Blood Pressure 145/74 O2 Sat by Pulse 97 Oximetry O2 Sat by Pulse Oximetry [ Assessment] - Labs 07/05/21 04:38 07/05/21 04:38 Diabetes panel 07/05/21 Range/Units 04:38 Sodium 138 (137-145) mmol/L Potassium 3.0 L (3.6-5.0) mmol/L Chloride 102.0 (98-107) mmol/L Carbon Dioxide 24 (22-30) mmol/L BUN 18 H (7-17) mg/dL Creatinine 0.8 (0.6-1.2) mg/dL Glucose 174 H (65-100) mg/dL Calcium 8.4 (8.4-10.2) mg/dL Calcium panel 07/05/21 Range/Units 04:38 Calcium 8.4 (8.4-10.2) mg/dL Phosphorus 2.20 L (2.5-4.5) mg/dL Pituitary panel 07/05/21 Range/Units 04:38 Sodium 138 (137-145) mmol/L Potassium 3.0 L (3.6-5.0) mmol/L Chloride 102.0 (98-107) mmol/L Carbon Dioxide 24 (22-30) mmol/L BUN 18 H (7-17) mg/dL Creatinine 0.8 (0.6-1.2) mg/dL Glucose 174 H (65-100) mg/dL Calcium 8.4 (8.4-10.2) mg/dL Adrenal panel 07/05/21 Range/Units 04:38 Sodium 138 (137-145) mmol/L Potassium 3.0 L (3.6-5.0) mmol/L Chloride 102.0 (98-107) mmol/L Carbon Dioxide 24 (22-30) mmol/L BUN 18 H (7-17) mg/dL Creatinine 0.8 (0.6-1.2) mg/dL Glucose 174 H (65-100) mg/dL Calcium 8.4 (8.4-10.2) mg/dL
--- NOTE | 2021-07-05 14:12 | Progress Note ---
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 07/05/21: Continue ICU/IMCU status. Patient is stable for speech as well as PT/OT. Please reconsult them. [facility] has been denied for LTACH so will attempt to get patient into half-way facility. Will speak with surgery about possibly downsizing trach to 8. Speech has no equipment to fit 10. Do not feel comfortable doing it myself or asking RT to change out to smaller trach. 07/04/21: Will keep in ICU/IMCU for now. Treat pain in back with [place] and discontinue Tylenol. Follow up with CM on placement. 07/03/21: Continue current level of care. CM working on placement. 07/02/21: ABG now. Patient did have low grade temp earlier today and still has a white count despite being off steroids. It is trending down. Reviewed ID note and they did mention of persistent consider ct of neck. May need to do this. If done, please scan head as well. Will continue to follow. Spoke with RT about obtaining ABG. 07/01/21: Continue T-piece. Follow up speech recs. Follow up electrolytes. PT/OT. Stable for transfer when bed available 06/30/21: Aggressive replacement of electrolytes. Will repeat chemistry tonight around 8. please call for orders as we would like to keep her K at 4 and Mag at 2. Chemistry in the am. Stable for transfer to telemetry floor. 06/29/21: Speech did see but patient had decreased voice quality and increased wob so aborted. Will ask them to assess again on Thursday. Chest tube out and ordered follow up CXR. Stable for transfer but ok with continuing monitoring in ICU. If bed needed could go to step down. 06/28/21: monitor drainage in ICU for 24 more hours. Can likely come out tom[place] row. Continue in ICU for now. Once chest tube out, no objection to transfer. 06/27/21: Will place chest tube to water seal. Instructed staff if any change in respiratory status, place back on suction and obtain CXR. Otherwise will leave off. Continue T-piece as tolerated. Rehab/senior care/LTACH appropriate. STable for transfer if and when bed becomes available. 06/26/21: T-piece today. If off the vent, agree with surgery and removal of chest tube as subq emphysema is improving as well. PT has seen suggested LTACH, however if we are able to wean she may need senior care/rehab. Prognosis continues to improve. 06/25/21: Continue PSV as tolerated. Hopeful T-piece in the next 24-48 hours. Will drop steroids down further on . Can switch to daily and even change to oral. PT/OT consult, and follow up recs. May need LTACH vs rehab vs both. Continue to follow. 06/24/21: Daily PSV trials. Maybe ready for T-piece sson. Continue to wean steroids to off. IMS changed to 40q12 which is fine. Continue chest tube until off vent. Still on list for [facility] but will discuss with CM about checking into LTACH as patient will need rehab. PT/OT consult. 06/21/21: Continue current level of sedation. Chest tube does not have air leak but there is clear evidence of a PTX on right. Stripped tube at bedside and will repeat CXR in the morning. Hold on weaning sedation for now and hold on PSV trials. May need second chest tube vs vats if PTX worsens or does not re solve. Patient still on list for [facility], hopeful they will have a bed soon. Drop steroids to 40q8 starting Thursday. Monitor renal function, likely will improve. Needs more free water. Prognosis still remains guarded. 06/20/21: Restart some sedation. At least pain and maybe diprovan. Would like to wake patient up at some point and attempt some PSV trials. Labs are off this am. Large bump in white count but no fever, also no diff drawn. Could be error vs steroid related but this is in just 24 hours. Will repeat tomorrow. If spikes a temp neves culture as well. Small bump in Cr but still in normal range. Will watch. Now that peg in place, tube feeds and free water flushes. Still on list for [facility]. Patient has been steroids greater than 7 days so will have to wean. Can drop to 60q8 starting tomorrow. Prognosis still remains guarded. 06/19/21: surgery to attempt trach and peg today. Still will ask to keep on transfer list for [facility] as her other issues still need to be addressed. If able to place peg, can stop clinimix, give free water and start tube feeds. Prognosis remains guarded. pH better with drop in tidal volume. 06/18/21: [facility] has agreed to accept but no ICU beds available at this time. Spoke with Dr. Vasquez yesterday and Dr. Patricia spoke with ENT there. Spoke with RT this am and patient did have a leak when cuff let down and her tidal volumes dropped to below 100. Patient remains on abx and steriods. Will consider lightening sedation tomorrow and seeing how patient does if cuff leak persists. Dropped tidal volumes to 450. Continue PPN for now. 06/17/21: spoke with surgery and they feel transfer is reasonable. I have reached out to [facility] and IMS has spoken with someone from [facility]. Await to hear back from them. Continue supportive measures and adequate sedation for pain control. No PSV trials as of yet. Blood sugar control, increase lantus. Most likely secondary to steroids. Continue abx therapy. Guarded prognosis. 06/16/21: Renal function improved with fluids. IMS to give more fluids (LR) today which I agree with. FeNa is =0.7. Should be fluid responsive. Continue clinimix. Needs long acting insulin. Agree with lantus. Asked nursing to increase sedation now that we know that patient's mental status is stable. Picc today. Air leak test vs Neck CT on tomorrow. 06/15/21: Hopeful with worsening renal function ( likely from code on yesterday) that sedatives are just lingering from that. Still making good urine but output has fallen off. Will send urine sodium and urine cr to check Fena. Most likely this is prerenal. ordered renal ultrasound as well. Continue abx and steroids. Will start clinimix today. This should help with the free water piece. Will give another liter bolus of LR right now. Keep sedation off for now. Guarded prognosis. 06/14/21: Will discuss with surgery future plans. They have ordered steroids to help with inflammation and abx continue. All others appears stable and no acute evidence of bleeding at this time. Follow up surgery recs if any new ones. Guarded prognosis. 06/13/21: Patient to back to OR today. BLood transfusion. Will send DIC panel and may need to given cryo if over 6 units of PRBC's given. Patient will likely need trach and peg as we need to address nutrition. Chest tube placed, large bore now. Patient now with right sided effusion. Hemothorax???. Will continue to monitor output. Needs picc line as femoral should come out soon. Continue pressors. Continue sedation for pain control and comfort. Guarded prognosis. Surgery comfortable with neck and current situation so they have not request transfer. 1. Placed right femoral central line. pressors can run through this. 2. Repeat chemistry stat given bicarb of 8 and blood sugar of greater than 600. Ordering FSBS now. Earlier bicarb was 25. If accurate will need bicarb drip and vasopressin but not sure as pH on blood gas was normal done around the same time. 3. Coagulopathy is improving. INR down to 4.55 and PTT and pT improving. Will continue to give FFP. Ordered more vitamin K. H/H is stable but patient is oozing from neck and mouth. 4. Vasopressor for blood pressure. Need to keep map 65 and greater 5. Lujan is needed for accurate I/O 6. Surgery called by IMS about current CT situation. They state they will reassess in the am. I have reviewed the images myself. If I can position the patient safely without compromising the airway after adequate sedation, may consider placing chest tube now as INR is better and FFP is hanging. Patient is morbidly obese so shits could move the ET tube so if not safe, will wait until surgery comes in the morning. 7. Would not attempt to pass OG or NG tube given current situation in neck 8. Will discuss with surgery tomorrow but I feel this patient should be tra nsferred to a tertiary care facility with ENT as we do not have that service here. CCT 31 minutes. Subjective Date of service: 07/05/21 Interval history: no acute events. Objective Vital Signs - 12hr 07/05/21 07/05/21 07/05/21 02:30 03:00 03:30 Temperature Pulse Rate 82 87 109 H Pulse Rate [ 90 From Monitor] Respiratory 15 15 20 Rate Blood Pressure 130/70 125/66 125/66 O2 Sat by Pulse 98 97 98 Oximetry O2 Sat by Pulse Oximetry [ Assessment] 07/05/21 07/05/2122 04:00 04:30 05:00 Temperature 98.5 F Pulse Rate 98 H 91 H 101 H Pulse Rate [ 90 From Monitor] Respiratory 19 19 25 H Rate Blood Pressure 127/82 127/82 139/91 O2 Sat by Pulse 97 97 96 Oximetry O2 Sat by Pulse Oximetry [ Assessment] 07/05/21 07/05/21 07/05/21 05:30 06:00 06:30 Temperature Pulse Rate 88 86 98 H Pulse Rate [ From Monitor] Respiratory 26 H 22 30 H Rate Blood Pressure 139/91 147/82 147/82 O2 Sat by Pulse 99 96 97 Oximetry O2 Sat by Pulse Oximetry [ Assessment] 07/05/21 07/05/21 07/05/21 07:00 07:15 07:30 Temperature Pulse Rate 99 H 104 H Pulse Rate [ From Monitor] Respiratory 25 H 31 H Rate Blood Pressure 144/73 144/73 O2 Sat by Pulse 97 98 98 Oximetry O2 Sat by Pulse 98 Oximetry [ Assessment] 07/05/21 07/05/21 07/05/21 08:00 08:30 09:00 Temperature 99.4 F Pulse Rate 96 H 104 H 106 H Pulse Rate [ 96 H From Monitor] Respiratory 22 23 25 H Rate Blood Pressure 142/67 142/67 143/78 O2 Sat by Pulse 97 98 97 Oximetry O2 Sat by Pulse Oximetry [ Assessment] 07/05/21 07/05/21 07/05/21 09:30 09:58 10:00 Temperature Pulse Rate 111 H 102 H Pulse Rate [ From Monitor] Respiratory 18 30 H Rate Blood Pressure 143/78 143/78 143/78 O2 Sat by Pulse 98 96 Oximetry O2 Sat by Pulse Oximetry [ Assessment] 07/05/21 07/05/21 07/05/21 10:30 11:00 11:30 Temperature Pulse Rate 98 H 97 H 93 H Pulse Rate [ From Monitor] Respiratory 14 20 15 Rate Blood Pressure 154/81 154/81 169/92 O2 Sat by Pulse 98 98 100 Oximetry O2 Sat by Pulse Oximetry [ Assessment] 07/05/21 07/05/21 07/05/21 12:00 12:30 13:00 Temperature 99.6 F Pulse Rate 92 H 99 H 96 H Pulse Rate [ 97 H From Monitor] Respiratory 28 H 36 H 26 H Rate Blood Pressure 158/86 158/86 145/74 O2 Sat by Pulse 96 96 97 Oximetry O2 Sat by Pulse Oximetry [ Assessment] Constitutional: alert, other (on vent trach in place) Eyes: non-icteric ENT: oropharynx moist Neck: other (trach in place) Ascultation: Bilateral: clear Percussion: Bilateral: not dull Cardiovascular: regular rate and rhythm Gastrointestinal: normoactive bowel sounds, soft Integumentary: other (subq emphysema) Extremities: no edema, other (subq emphysema) Neurologic: normal mental status CBC and BMP: 07/05/21 04:38 07/05/21 04:38 ABG, PT/INR, D-dimer: ABG ABG pH 7.448 pH Units (7.350-7.450) 07/04/21 01:44 POC ABG pCO2 25.6 mmHg (32.0-48.0) L 06/13/21 04:31 ABG pCO2 39.5 mm Hg 07/04/21 01:44 POC ABG pO2 138.8 mmHg (83-108) H 06/13/21 04:31 ABG pO2 107.7 mm Hg (80.0-90.0) H 07/04/21 01:44 POC ABG HCO3 21.4 06/13/21 04:31 ABG O2 Saturation 98.0 % (95.0-99.0) 07/04/21 01:44 PT/INR, D-dimer PT 18.3 Sec. (12.2-14.9) H 06/20/21 04:33 INR 1.37 (0.87-1.13) H 06/20/21 04:33 D-Dimer 1244.63 ng/mlDDU (0-234) H 06/13/21 Unknown Abnormal lab findings: Abnormal Labs 06/11/21 06/11/21 06/11/21 15:23 15:23 19:20 WBC 12.0 H RBC Hgb Hct MCV 72 L MCH 21 L RDW 17.5 H Plt Count Lymph % (Auto) 12.9 L [place] % (Auto) 8.6 H Lymph # (Auto) [place] # (Auto) 1.0 H Seg Neutrophils % 77.4 H Seg Neuts % (Manual) Lymphocytes % (Manual) Monocytes % (Manual) Seg Neutrophils # 9.3 H Seg Neutrophils # Man Lymphocytes # (Manual) Monocytes # (Manual) PT INR APTT Fibrinogen D-Dimer ABG pH POC ABG pCO2 POC ABG pO2 ABG pO2 ABG HCO3 ABG O2 Saturation ABG Base Excess ABG Hemoglobin ABG Oxyhemoglobin Oxyhemoglobin Sodium Potassium Chloride Carbon Dioxide BUN Creatinine Glucose 144 H POC Glucose Lactic Acid Calcium Phosphorus Magnesium AST ALT Alkaline Phosphatase C-Reactive Protein Total Protein Albumin Triglycerides Ur Specific [place] Urine Creatinine Crossmatch See Detail 06/11/21 06/11/21 06/11/21 19:29 19:29 23:21 WBC 15.8 H RBC Hgb 9.4 L Hct MCV 72 L MCH 22 L RDW 17.4 H Plt Count Lymph % (Auto) 9.2 L [place] % (Auto) Lymph # (Auto) [place] # (Auto) Seg Neutrophils % 89.0 H Seg Neuts % (Manual) Lymphocytes % (Manual) Monocytes % (Manual) Seg Neutrophils # 14.0 H Seg Neutrophils # Man Lymphocytes # (Manual) Monocytes # (Manual) PT 72.9 H INR 8.18 H* APTT 71.7 H* Fibrinogen D-Dimer ABG pH POC ABG pCO2 POC ABG pO2 ABG pO2 ABG HCO3 ABG O2 Saturation ABG Base Excess ABG Hemoglobin ABG Oxyhemoglobin Oxyhemoglobin Sodium 149 H D Potassium Chloride 124.3 H Carbon Dioxide 8 L* D BUN Creatinine 0.3 L Glucose 628 H* POC Glucose Lactic Acid Calcium 2.4 L* D Phosphorus Magnesium AST ALT < 5 L Alkaline Phosphatase 19 L C-Reactive Protein Total Protein 1.6 L D Albumin 0.8 L Triglycerides Ur Specific [place] Urine Creatinine Crossmatch 06/11/21 06/11/21 06/11/21 23:21 23:22 23:42 WBC RBC Hgb Hct MCV MCH 27 L RDW 22.2 H Plt Count 131 L Lymph % (Auto) [place] % (Auto) Lymph # (Auto) [place] # (Auto) Seg Neutrophils % Seg Neuts % (Manual) Lymphocytes % (Manual) Monocytes % (Manual) Seg Neutrophils # Seg Neutrophils # Man Lymphocytes # (Manual) Monocytes # (Manual) PT 46.3 H INR 4.55 H APTT 54.8 H Fibrinogen D-Dimer ABG pH POC ABG pCO2 POC ABG pO2 325.9 H ABG pO2 ABG HCO3 ABG O2 Saturation ABG Base Excess ABG Hemoglobin 8.0 L ABG Oxyhemoglobin 99.0 H Oxyhemoglobin Sodium Potassium Chloride Carbon Dioxide BUN Creatinine Glucose POC Glucose Lactic Acid Calcium Phosphorus Magnesium AST ALT Alkaline Phosphatase C-Reactive Protein Total Protein Albumin Triglycerides Ur Specific [place] Urine Creatinine Crossmatch 06/12/21 06/12/21 06/12/21 01:45 01:45 01:45 WBC 21.6 H RBC 3.04 L Hgb 6.7 L D Hct 22.4 L D MCV 74 L MCH 22 L RDW 18.9 H Plt Count Lymph % (Auto) [place] % (Auto) Lymph # (Auto) [place] # (Auto) Seg Neutrophils % Seg Neuts % (Manual) 76.0 H Lymphocytes % (Manual) 2.0 L Monocytes % (Manual) 8.0 H Seg Neutrophils # Seg Neutrophils # Man 16.4 H Lymphocytes # (Manual) 0.4 L Monocytes # (Manual) 1.7 H PT 25.4 H INR 2.10 H APTT Fibrinogen D-Dimer ABG pH POC ABG pCO2 POC ABG pO2 ABG pO2 ABG HCO3 ABG O2 Saturation ABG Base Excess ABG Hemoglobin ABG Oxyhemoglobin Oxyhemoglobin Sodium Potassium 5.6 H D Chloride Carbon Dioxide 20 L D BUN Creatinine Glucose 368 H POC Glucose Lactic Acid Calcium 7.1 L D Phosphorus Magnesium AST ALT Alkaline Phosphatase C-Reactive Protein Total Protein 5.3 L D Albumin 3.1 L Triglycerides Ur Specific [place] Urine Creatinine Crossmatch 06/12/21 06/12/21 06/12/21 02:05 04:41 11:05 WBC 14.6 H RBC 3.52 L Hgb 8.5 L Hct 27.7 L MCV MCH 24 L RDW 20.9 H Plt Count Lymph % (Auto) [place] % (Auto) Lymph # (Auto) [place] # (Auto) Seg Neutrophils % Seg Neuts % (Manual) Lymphocytes % (Manual) Monocytes % (Manual) Seg Neutrophils # Seg Neutrophils # Man Lymphocytes # (Manual) Monocytes # (Manual) PT INR APTT Fibrinogen D-Dimer ABG pH POC ABG pCO2 POC ABG pO2 224.6 H ABG pO2 ABG HCO3 ABG O2 Saturation ABG Base Excess ABG Hemoglobin 7.3 L ABG Oxyhemoglobin 98.7 H Oxyhemoglobin Sodium Potassium Chloride Carbon Dioxide BUN Creatinine Glucose POC Glucose 308 H Lactic Acid Calcium Phosphorus Magnesium AST ALT Alkaline Phosphatase C-Reactive Protein Total Protein Albumin Triglycerides Ur Specific [place] Urine Creatinine Crossmatch 06/12/21 06/12/21 06/12/21 11:05 11:05 12:18 WBC RBC Hgb Hct MCV MCH RDW Plt Count Lymph % (Auto) [place] % (Auto) Lymph # (Auto) [place] # (Auto) Seg Neutrophils % Seg Neuts % (Manual) Lymphocytes % (Manual) Monocytes % (Manual) Seg Neutrophils # Seg Neutrophils # Man Lymphocytes # (Manual) Monocytes # (Manual) PT 16.8 H INR 1.23 H APTT Fibrinogen D-Dimer ABG pH POC ABG pCO2 POC ABG pO2 ABG pO2 ABG HCO3 ABG O2 Saturation ABG Base Excess ABG Hemoglobin ABG Oxyhemoglobin Oxyhemoglobin Sodium Potassium Chloride Carbon Dioxide BUN 24 H Creatinine Glucose 324 H POC Glucose 281 H Lactic Acid Calcium 7.5 L Phosphorus Magnesium AST 70 H ALT 57 H Alkaline Phosphatase C-Reactive Protein Total Protein 6.0 L Albumin 3.6 L Triglycerides Ur Specific [place] Urine Creatinine Crossmatch 06/12/21 06/12/21 06/12/21 17:00 17:00 17:00 WBC RBC Hgb 7.5 L Hct 24.0 L MCV MCH RDW Plt Count Lymph % (Auto) [place] % (Auto) Lymph # (Auto) [place] # (Auto) Seg Neutrophils % Seg Neuts % (Manual) Lymphocytes % (Manual) Monocytes % (Manual) Seg Neutrophils # Seg Neutrophils # Man Lymphocytes # (Manual) Monocytes # (Manual) PT 16.0 H INR 1.16 H APTT Fibrinogen D-Dimer ABG pH POC ABG pCO2 POC ABG pO2 ABG pO2 ABG HCO3 ABG O2 Saturation ABG Base Excess ABG Hemoglobin ABG Oxyhemoglobin Oxyhemoglobin Sodium Potassium Chloride Carbon Dioxide BUN Creatinine Glucose POC Glucose Lactic Acid Calcium Phosphorus Magnesium AST ALT Alkaline Phosphatase C-Reactive Protein Total Protein Albumin Triglycerides Ur Specific [place] 1.035 H Urine Creatinine Crossmatch 06/12/21 06/12/21 06/12/21 18:06 23:00 23:05 WBC RBC Hgb 7.6 L Hct 23.5 L MCV MCH RDW Plt Count Lymph % (Auto) [place] % (Auto) Lymph # (Auto) [place] # (Auto) Seg Neutrophils % Seg Neuts % (Manual) Lymphocytes % (Manual) Monocytes % (Manual) Seg Neutrophils # Seg Neutrophils # Man Lymphocytes # (Manual) Monocytes # (Manual) PT INR APTT Fibrinogen D-Dimer ABG pH POC ABG pCO2 POC ABG pO2 ABG pO2 ABG HCO3 ABG O2 Saturation ABG Base Excess ABG Hemoglobin ABG Oxyhemoglobin Oxyhemoglobin Sodium Potassium Chloride Carbon Dioxide BUN Creatinine Glucose POC Glucose 257 H 300 H Lactic Acid Calcium Phosphorus Magnesium AST ALT Alkaline Phosphatase C-Reactive Protein Total Protein Albumin Triglycerides Ur Specific [place] Urine Creatinine Crossmatch 06/13/21 06/13/21 06/13/21 04:31 05:19 07:30 WBC RBC Hgb 6.8 L Hct 21.7 L MCV MCH RDW Plt Count Lymph % (Auto) [place] % (Auto) Lymph # (Auto) [place] # (Auto) Seg Neutrophils % Seg Neuts % (Manual) Lymphocytes % (Manual) Monocytes % (Manual) Seg Neutrophils # Seg Neutrophils # Man Lymphocytes # (Manual) Monocytes # (Manual) PT INR APTT Fibrinogen D-Dimer ABG pH 7.541 H POC ABG pCO2 25.6 L POC ABG pO2 138.8 H ABG pO2 ABG HCO3 ABG O2 Saturation ABG Base Excess ABG Hemoglobin 7.3 L ABG Oxyhemoglobin 98.1 H Oxyhemoglobin Sodium Potassium Chloride Carbon Dioxide BUN Creatinine Glucose POC Glucose 286 H Lactic Acid Calcium Phosphorus Magnesium AST ALT Alkaline Phosphatase C-Reactive Protein Total Protein Albumin Triglycerides Ur Specific [place] Urine Creatinine Crossmatch 06/13/21 06/13/21 06/13/21 07:30 12:04 14:50 WBC RBC Hgb Hct MCV MCH RDW Plt Count Lymph % (Auto) [place] % (Auto) Lymph # (Auto) [place] # (Auto) Seg Neutrophils % Seg Neuts % (Manual) Lymphocytes % (Manual) Monocytes % (Manual) Seg Neutrophils # Seg Neutrophils # Man Lymphocytes # (Manual) Monocytes # (Manual) PT INR APTT Fibrinogen D-Dimer ABG pH 7.039 L* 7.182 L* POC ABG pCO2 POC ABG pO2 ABG pO2 63.1 L ABG HCO3 17.4 L ABG O2 Saturation 73.4 L ABG Base Excess -12.6 L -7.1 L ABG Hemoglobin 7.7 L 6.9 L ABG Oxyhemoglobin Oxyhemoglobin 71.8 L 93.5 L Sodium Potassium Chloride 108.9 H Carbon Dioxide BUN 28 H Creatinine Glucose 293 H POC Glucose Lactic Acid Calcium 7.2 L Phosphorus Magnesium AST 106 H ALT 92 H Alkaline Phosphatase C-Reactive Protein Total Protein 5.6 L Albumin 3.3 L Triglycerides Ur Specific [place] Urine Creatinine Crossmatch 06/13/21 06/13/21 06/13/21 14:54 15:45 17:34 WBC RBC Hgb Hct MCV MCH RDW Plt Count Lymph % (Auto) [place] % (Auto) Lymph # (Auto) [place] # (Auto) Seg Neutrophils % Seg Neuts % (Manual) Lymphocytes % (Manual) Monocytes % (Manual) Seg Neutrophils # Seg Neutrophils # Man Lymphocytes # (Manual) Monocytes # (Manual) PT INR APTT Fibrinogen D-Dimer ABG pH POC ABG pCO2 POC ABG pO2 ABG pO2 178.4 H ABG HCO3 ABG O2 Saturation 99.1 H ABG Base Excess ABG Hemoglobin 8.0 L ABG Oxyhemoglobin Oxyhemoglobin Sodium Potassium Chloride 107.3 H Carbon Dioxide 19 L BUN 33 H Creatinine 1.5 H Glucose 379 H POC Glucose Lactic Acid 5.30 H* Calcium 6.8 L Phosphorus Magnesium AST ALT Alkaline Phosphatase C-Reactive Protein Total Protein Albumin Triglycerides Ur Specific [place] Urine Creatinine Crossmatch 06/13/21 06/13/21 06/13/21 17:40 23:29 Unknown WBC 22.5 H RBC 3.16 L Hgb 8.0 L Hct 26.0 L MCV MCH 26 L RDW 21.4 H Plt Count Lymph % (Auto) [place] % (Auto) Lymph # (Auto) [place] # (Auto) Seg Neutrophils % Seg Neuts % (Manual) 88.0 H Lymphocytes % (Manual) 4.0 L Monocytes % (Manual) Seg Neutrophils # Seg Neutrophils # Man 19.8 H Lymphocytes # (Manual) 0.9 L Monocytes # (Manual) 1.4 H PT INR APTT Fibrinogen D-Dimer ABG pH POC ABG pCO2 POC ABG pO2 ABG pO2 ABG HCO3 ABG O2 Saturation ABG Base Excess ABG Hemoglobin ABG Oxyhemoglobin Oxyhemoglobin Sodium Potassium Chloride Carbon Dioxide BUN Creatinine Glucose POC Glucose 294 H 288 H Lactic Acid Calcium Phosphorus Magnesium AST ALT Alkaline Phosphatase C-Reactive Protein Total Protein Albumin Triglycerides Ur Specific [place] Urine Creatinine Crossmatch 06/13/21 06/14/21 06/14/21 Unknown 05:39 06:15 WBC RBC 2.93 L Hgb 7.2 L Hct 23.2 L MCV MCH 25 L RDW 21.2 H Plt Count Lymph % (Auto) [place] % (Auto) Lymph # (Auto) [place] # (Auto) Seg Neutrophils % Seg Neuts % (Manual) Lymphocytes % (Manual) Monocytes % (Manual) Seg Neutrophils # Seg Neutrophils # Man Lymphocytes # (Manual) Monocytes # (Manual) PT 17.6 H INR 1.31 H APTT Fibrinogen 546 H D-Dimer 1244.63 H ABG pH POC ABG pCO2 POC ABG pO2 ABG pO2 ABG HCO3 ABG O2 Saturation ABG Base Excess ABG Hemoglobin ABG Oxyhemoglobin Oxyhemoglobin Sodium Potassium Chloride Carbon Dioxide BUN Creatinine Glucose POC Glucose 246 H Lactic Acid Calcium Phosphorus Magnesium AST ALT Alkaline Phosphatase C-Reactive Protein Total Protein Albumin Triglycerides Ur Specific [place] Urine Creatinine Crossmatch 06/14/21 06/14/21 06/14/21 06:15 06:15 09:13 WBC RBC Hgb Hct MCV MCH RDW Plt Count Lymph % (Auto) [place] % (Auto) Lymph # (Auto) [place] # (Auto) Seg Neutrophils % Seg Neuts % (Manual) Lymphocytes % (Manual) Monocytes % (Manual) Seg Neutrophils # Seg Neutrophils # Man Lymphocytes # (Manual) Monocytes # (Manual) PT INR APTT Fibrinogen D-Dimer ABG pH POC ABG pCO2 POC ABG pO2 ABG pO2 183.0 H ABG HCO3 ABG O2 Saturation 99.2 H ABG Base Excess ABG Hemoglobin 6.6 L ABG Oxyhemoglobin Oxyhemoglobin Sodium 147 H Potassium Chloride 112.5 H Carbon Dioxide 21 L BUN 36 H Creatinine 1.4 H Glucose 281 H POC Glucose Lactic Acid Calcium 6.9 L Phosphorus Magnesium AST ALT Alkaline Phosphatase C-Reactive Protein Total Protein Albumin Triglycerides 189 H Ur Specific [place] Urine Creatinine Crossmatch 06/14/21 06/14/21 06/14/21 10:45 12:16 13:30 WBC RBC Hgb 7.1 L Hct 22.3 L MCV MCH RDW Plt Count Lymph % (Auto) [place] % (Auto) Lymph # (Auto) [place] # (Auto) Seg Neutrophils % Seg Neuts % (Manual) Lymphocytes % (Manual) Monocytes % (Manual) Seg Neutrophils # Seg Neutrophils # Man Lymphocytes # (Manual) Monocytes # (Manual) PT INR APTT Fibrinogen D-Dimer ABG pH 7.205 L POC ABG pCO2 POC ABG pO2 ABG pO2 261.3 H ABG HCO3 ABG O2 Saturation 99.4 H ABG Base Excess -7.2 L ABG Hemoglobin 7.6 L ABG Oxyhemoglobin Oxyhemoglobin Sodium Potassium Chloride Carbon Dioxide BUN Creatinine Glucose POC Glucose 174 H Lactic Acid Calcium Phosphorus Magnesium AST ALT Alkaline Phosphatase C-Reactive Protein Total Protein Albumin Triglycerides Ur Specific [place] Urine Creatinine Crossmatch 06/14/21 06/14/21 06/15/21 17:40 18:43 00:06 WBC RBC Hgb Hct MCV MCH RDW Plt Count Lymph % (Auto) [place] % (Auto) Lymph # (Auto) [place] # (Auto) Seg Neutrophils % Seg Neuts % (Manual) Lymphocytes % (Manual) Monocytes % (Manual) Seg Neutrophils # Seg Neutrophils # Man Lymphocytes # (Manual) Monocytes # (Manual) PT INR APTT Fibrinogen D-Dimer ABG pH 7.292 L POC ABG pCO2 POC ABG pO2 ABG pO2 78.8 L ABG HCO3 ABG O2 Saturation ABG Base Excess -5.0 L ABG Hemoglobin 9.1 L ABG Oxyhemoglobin Oxyhemoglobin 93.7 L Sodium Potassium Chloride Carbon Dioxide BUN Creatinine Glucose POC Glucose 182 H 144 H Lactic Acid Calcium Phosphorus Magnesium AST ALT Alkaline Phosphatase C-Reactive Protein Total Protein Albumin Triglycerides Ur Specific [place] Urine Creatinine Crossmatch 06/15/21 06/15/21 06/15/21 03:55 03:56 10:40 WBC RBC Hgb 8.4 L Hct 25.8 L MCV MCH RDW Plt Count Lymph % (Auto) [place] % (Auto) Lymph # (Auto) [place] # (Auto) Seg Neutrophils % Seg Neuts % (Manual) Lymphocytes % (Manual) Monocytes % (Manual) Seg Neutrophils # Seg Neutrophils # Man Lymphocytes # (Manual) Monocytes # (Manual) PT INR APTT Fibrinogen D-Dimer ABG pH POC ABG pCO2 POC ABG pO2 ABG pO2 ABG HCO3 ABG O2 Saturation ABG Base Excess ABG Hemoglobin ABG Oxyhemoglobin Oxyhemoglobin Sodium 147 H Potassium Chloride 112.2 H Carbon Dioxide 21 L BUN 47 H Creatinine 1.9 H Glucose 272 H POC Glucose Lactic Acid Calcium 7.3 L Phosphorus Magnesium AST 64 H ALT 106 H Alkaline Phosphatase C-Reactive Protein Total Protein 5.1 L Albumin 2.9 L Triglycerides Ur Specific [place] Creatinine 81.1 H Crossmatch 06/15/21 06/15/21 06/15/21 11:46 17:16 23:17 WBC RBC Hgb Hct MCV MCH RDW Plt Count Lymph % (Auto) [place] % (Auto) Lymph # (Auto) [place] # (Auto) Seg Neutrophils % Seg Neuts % (Manual) Lymphocytes % (Manual) Monocytes % (Manual) Seg Neutrophils # Seg Neutrophils # Man Lymphocytes # (Manual) Monocytes # (Manual) PT INR APTT Fibrinogen D-Dimer ABG pH POC ABG pCO2 POC ABG pO2 ABG pO2 ABG HCO3 ABG O2 Saturation ABG Base Excess ABG Hemoglobin ABG Oxyhemoglobin Oxyhemoglobin Sodium Potassium Chloride Carbon Dioxide BUN Creatinine Glucose POC Glucose 271 H 268 H 264 H Lactic Acid Calcium Phosphorus Magnesium AST ALT Alkaline Phosphatase C-Reactive Protein Total Protein Albumin Triglycerides Ur Specific [place] Creatinine Crossmatch 06/15/21 06/15/21 06/16/21 Unknown Unknown 04:32 WBC RBC 3.21 L 3.16 L Hgb 8.4 L 8.2 L Hct 26.1 L 25.4 L MCV MCH 26 L 26 L RDW 21.3 H 21.2 H Plt Count 105 L 118 L Lymph % (Auto) [place] % (Auto) Lymph # (Auto) [place] # (Auto) Seg Neutrophils % Seg Neuts % (Manual) Lymphocytes % (Manual) Monocytes % (Manual) Seg Neutrophils # Seg Neutrophils # Man Lymphocytes # (Manual) Monocytes # (Manual) PT INR APTT Fibrinogen D-Dimer ABG pH 7.465 H POC ABG pCO2 POC ABG pO2 ABG pO2 114.1 H ABG HCO3 ABG O2 Saturation ABG Base Excess ABG Hemoglobin 8.4 L ABG Oxyhemoglobin Oxyhemoglobin Sodium Potassium Chloride Carbon Dioxide BUN Creatinine Glucose POC Glucose Lactic Acid Calcium Phosphorus Magnesium AST ALT Alkaline Phosphatase C-Reactive Protein Total Protein Albumin Triglycerides Ur Specific [place] Creatinine Crossmatch 06/16/21 06/16/21 06/16/21 04:32 04:32 05:08 WBC RBC Hgb Hct MCV MCH RDW Plt Count Lymph % (Auto) [place] % (Auto) Lymph # (Auto) [place] # (Auto) Seg Neutrophils % Seg Neuts % (Manual) Lymphocytes % (Manual) Monocytes % (Manual) Seg Neutrophils # Seg Neutrophils # Man Lymphocytes # (Manual) Monocytes # (Manual) PT INR APTT Fibrinogen D-Dimer ABG pH POC ABG pCO2 POC ABG pO2 ABG pO2 ABG HCO3 ABG O2 Saturation ABG Base Excess ABG Hemoglobin ABG Oxyhemoglobin Oxyhemoglobin Sodium 148 H Potassium 3.3 L Chloride 115.1 H Carbon Dioxide 21 L BUN 54 H Creatinine 1.6 H Glucose 367 H POC Glucose 356 H Lactic Acid Calcium 7.4 L Phosphorus Magnesium AST ALT Alkaline Phosphatase C-Reactive Protein 3.30 H Total Protein Albumin Triglycerides Ur Specific [place] Creatinine Crossmatch 06/16/21 06/16/21 06/16/21 05:30 11:46 17:03 WBC RBC Hgb Hct MCV MCH RDW Plt Count Lymph % (Auto) [place] % (Auto) Lymph # (Auto) [place] # (Auto) Seg Neutrophils % Seg Neuts % (Manual) Lymphocytes % (Manual) Monocytes % (Manual) Seg Neutrophils # Seg Neutrophils # Man Lymphocytes # (Manual) Monocytes # (Manual) PT INR APTT Fibrinogen D-Dimer ABG pH 7.475 H POC ABG pCO2 POC ABG pO2 ABG pO2 171.8 H ABG HCO3 ABG O2 Saturation 99.1 H ABG Base Excess ABG Hemoglobin 11.7 L ABG Oxyhemoglobin Oxyhemoglobin Sodium Potassium Chloride Carbon Dioxide BUN Creatinine Glucose POC Glucose 309 H 345 H Lactic Acid Calcium Phosphorus Magnesium AST ALT Alkaline Phosphatase C-Reactive Protein Total Protein Albumin Triglycerides Ur Specific [place] Creatinine Crossmatch 06/16/21 06/16/21 06/17/21 20:18 23:22 04:50 WBC RBC Hgb Hct MCV MCH RDW Plt Count Lymph % (Auto) [place] % (Auto) Lymph # (Auto) [place] # (Auto) Seg Neutrophils % Seg Neuts % (Manual) Lymphocytes % (Manual) Monocytes % (Manual) Seg Neutrophils # Seg Neutrophils # Man Lymphocytes # (Manual) Monocytes # (Manual) PT INR APTT Fibrinogen D-Dimer ABG pH 7.479 H POC ABG pCO2 POC ABG pO2 ABG pO2 143.1 H ABG HCO3 ABG O2 Saturation ABG Base Excess ABG Hemoglobin 10.0 L ABG Oxyhemoglobin Oxyhemoglobin Sodium Potassium Chloride Carbon Dioxide BUN Creatinine Glucose POC Glucose 325 H 315 H Lactic Acid Calcium Phosphorus Magnesium AST ALT Alkaline Phosphatase C-Reactive Protein Total Protein Albumin Triglycerides Ur Specific [place] Creatinine Crossmatch 06/17/21 06/17/21 06/17/21 05:18 05:30 05:30 WBC RBC 3.17 L Hgb 8.2 L Hct 25.5 L MCV MCH 26 L RDW 21.2 H Plt Count 128 L Lymph % (Auto) [place] % (Auto) Lymph # (Auto) [place] # (Auto) Seg Neutrophils % Seg Neuts % (Manual) Lymphocytes % (Manual) Monocytes % (Manual) Seg Neutrophils # Seg Neutrophils # Man Lymphocytes # (Manual) Monocytes # (Manual) PT INR APTT Fibrinogen D-Dimer ABG pH POC ABG pCO2 POC ABG pO2 ABG pO2 ABG HCO3 ABG O2 Saturation ABG Base Excess ABG Hemoglobin ABG Oxyhemoglobin Oxyhemoglobin Sodium 148 H Potassium Chloride 113.7 H Carbon Dioxide 20 L BUN 57 H Creatinine 1.4 H Glucose 351 H POC Glucose 324 H Lactic Acid Calcium 8.0 L Phosphorus 2.30 L Magnesium AST ALT Alkaline Phosphatase C-Reactive Protein Total Protein Albumin Triglycerides Ur Specific [place] Creatinine Crossmatch 06/17/21 06/17/21 06/17/21 11:49 17:43 21:42 WBC RBC Hgb Hct MCV MCH RDW Plt Count Lymph % (Auto) [place] % (Auto) Lymph # (Auto) [place] # (Auto) Seg Neutrophils % Seg Neuts % (Manual) Lymphocytes % (Manual) Monocytes % (Manual) Seg Neutrophils # Seg Neutrophils # Man Lymphocytes # (Manual) Monocytes # (Manual) PT INR APTT Fibrinogen D-Dimer ABG pH POC ABG pCO2 POC ABG pO2 ABG pO2 ABG HCO3 ABG O2 Saturation ABG Base Excess ABG Hemoglobin ABG Oxyhemoglobin Oxyhemoglobin Sodium Potassium Chloride Carbon Dioxide BUN Creatinine Glucose POC Glucose 305 H 307 H 286 H Lactic Acid Calcium Phosphorus Magnesium AST ALT Alkaline Phosphatase C-Reactive Protein Total Protein Albumin Triglycerides Ur Specific [place] Creatinine Crossmatch 06/17/21 06/18/21 06/18/21 23:59 04:20 04:37 WBC RBC 3.53 L Hgb 9.1 L Hct 28.7 L MCV MCH 26 L RDW 21.3 H Plt Count Lymph % (Auto) [place] % (Auto) Lymph # (Auto) [place] # (Auto) Seg Neutrophils % Seg Neuts % (Manual) Lymphocytes % (Manual) Monocytes % (Manual) Seg Neutrophils # Seg Neutrophils # Man Lymphocytes # (Manual) Monocytes # (Manual) PT INR APTT Fibrinogen D-Dimer ABG pH 7.495 H POC ABG pCO2 POC ABG pO2 ABG pO2 108.3 H ABG HCO3 ABG O2 Saturation ABG Base Excess -2.1 L ABG Hemoglobin 10.0 L ABG Oxyhemoglobin Oxyhemoglobin Sodium Potassium Chloride Carbon Dioxide BUN Creatinine Glucose POC Glucose 264 H Lactic Acid Calcium Phosphorus Magnesium AST ALT Alkaline Phosphatase C-Reactive Protein Total Protein Albumin Triglycerides Ur Specific [place] Creatinine Crossmatch 06/18/21 06/18/21 06/18/21 04:37 05:32 11:21 WBC RBC Hgb Hct MCV MCH RDW Plt Count Lymph % (Auto) [place] % (Auto) Lymph # (Auto) [place] # (Auto) Seg Neutrophils % Seg Neuts % (Manual) Lymphocytes % (Manual) Monocytes % (Manual) Seg Neutrophils # Seg Neutrophils # Man Lymphocytes # (Manual) Monocytes # (Manual) PT INR APTT Fibrinogen D-Dimer ABG pH POC ABG pCO2 POC ABG pO2 ABG pO2 ABG HCO3 ABG O2 Saturation ABG Base Excess ABG Hemoglobin ABG Oxyhemoglobin Oxyhemoglobin Sodium 148 H Potassium Chloride 114.7 H Carbon Dioxide BUN 59 H Creatinine 1.3 H Glucose 329 H POC Glucose 293 H 291 H Lactic Acid Calcium 8.1 L Phosphorus Magnesium AST ALT Alkaline Phosphatase C-Reactive Protein Total Protein Albumin Triglycerides Ur Specific [place] Creatinine Crossmatch 06/18/21 06/18/21 06/19/21 18:21 21:46 00:15 WBC RBC Hgb Hct MCV MCH RDW Plt Count Lymph % (Auto) [place] % (Auto) Lymph # (Auto) [place] # (Auto) Seg Neutrophils % Seg Neuts % (Manual) Lymphocytes % (Manual) Monocytes % (Manual) Seg Neutrophils # Seg Neutrophils # Man Lymphocytes # (Manual) Monocytes # (Manual) PT INR APTT Fibrinogen D-Dimer ABG pH POC ABG pCO2 POC ABG pO2 ABG pO2 ABG HCO3 ABG O2 Saturation ABG Base Excess ABG Hemoglobin ABG Oxyhemoglobin Oxyhemoglobin Sodium Potassium Chloride Carbon Dioxide BUN Creatinine Glucose POC Glucose 239 H 259 H 310 H Lactic Acid Calcium Phosphorus Magnesium AST ALT Alkaline Phosphatase C-Reactive Protein Total Protein Albumin Triglycerides Ur Specific [place] Creatinine Crossmatch 06/19/21 06/19/21 06/19/21 04:00 04:00 04:50 WBC RBC 3.64 L Hgb 9.1 L Hct 29.1 L MCV MCH 25 L RDW 21.5 H Plt Count Lymph % (Auto) [place] % (Auto) Lymph # (Auto) [place] # (Auto) Seg Neutrophils % Seg Neuts % (Manual) Lymphocytes % (Manual) Monocytes % (Manual) Seg Neutrophils # Seg Neutrophils # Man Lymphocytes # (Manual) Monocytes # (Manual) PT INR APTT Fibrinogen D-Dimer ABG pH POC ABG pCO2 POC ABG pO2 ABG pO2 78.9 L ABG HCO3 ABG O2 Saturation ABG Base Excess -3.2 L ABG Hemoglobin 7.6 L ABG Oxyhemoglobin Oxyhemoglobin Sodium 148 H Potassium Chloride 114.9 H Carbon Dioxide 19 L BUN 59 H Creatinine Glucose 345 H POC Glucose Lactic Acid Calcium 8.1 L Phosphorus 4.60 H D Magnesium 2.40 H AST ALT Alkaline Phosphatase C-Reactive Protein Total Protein Albumin Triglycerides Ur Specific [place] Creatinine Crossmatch 06/19/21 06/19/21 06/19/21 06:28 11:11 17:20 WBC RBC Hgb Hct MCV MCH RDW Plt Count Lymph % (Auto) [place] % (Auto) Lymph # (Auto) [place] # (Auto) Seg Neutrophils % Seg Neuts % (Manual) Lymphocytes % (Manual) Monocytes % (Manual) Seg Neutrophils # Seg Neutrophils # Man Lymphocytes # (Manual) Monocytes # (Manual) PT 29.7 H INR 2.57 H APTT Fibrinogen D-Dimer ABG pH POC ABG pCO2 POC ABG pO2 ABG pO2 ABG HCO3 ABG O2 Saturation ABG Base Excess ABG Hemoglobin ABG Oxyhemoglobin Oxyhemoglobin Sodium Potassium Chloride Carbon Dioxide BUN Creatinine Glucose POC Glucose 279 H 275 H Lactic Acid Calcium Phosphorus Magnesium AST ALT Alkaline Phosphatase C-Reactive Protein Total Protein Albumin Triglycerides Ur Specific [place] Creatinine Crossmatch 06/19/21 06/19/21 06/19/21 18:30 19:20 23:27 WBC RBC Hgb 8.0 L Hct 25.0 L MCV MCH RDW Plt Count Lymph % (Auto) [place] % (Auto) Lymph # (Auto) [place] # (Auto) Seg Neutrophils % Seg Neuts % (Manual) Lymphocytes % (Manual) Monocytes % (Manual) Seg Neutrophils # Seg Neutrophils # Man Lymphocytes # (Manual) Monocytes # (Manual) PT INR APTT Fibrinogen D-Dimer ABG pH POC ABG pCO2 POC ABG pO2 ABG pO2 ABG HCO3 ABG O2 Saturation ABG Base Excess ABG Hemoglobin ABG Oxyhemoglobin Oxyhemoglobin Sodium Potassium Chloride Carbon Dioxide BUN Creatinine Glucose POC Glucose 279 H 290 H Lactic Acid Calcium Phosphorus Magnesium AST ALT Alkaline Phosphatase C-Reactive Protein Total Protein Albumin Triglycerides Ur Specific [place] Creatinine Crossmatch 06/20/21 06/20/21 06/20/21 00:00 04:33 04:33 WBC 22.3 H RBC 3.31 L Hgb 7.4 L 8.5 L Hct 22.5 L 26.5 L MCV MCH 26 L RDW 21.5 H Plt Count Lymph % (Auto) [place] % (Auto) Lymph # (Auto) [place] # (Auto) Seg Neutrophils % Seg Neuts % (Manual) Lymphocytes % (Manual) Monocytes % (Manual) Seg Neutrophils # Seg Neutrophils # Man Lymphocytes # (Manual) Monocytes # (Manual) PT INR APTT Fibrinogen D-Dimer ABG pH POC ABG pCO2 POC ABG pO2 ABG pO2 ABG HCO3 ABG O2 Saturation ABG Base Excess ABG Hemoglobin ABG Oxyhemoglobin Oxyhemoglobin Sodium 148 H Potassium Chloride 114.2 H Carbon Dioxide BUN 70 H Creatinine 1.4 H Glucose 313 H POC Glucose Lactic Acid Calcium 8.2 L Phosphorus Magnesium 2.50 H AST ALT Alkaline Phosphatase C-Reactive Protein Total Protein Albumin Triglycerides Ur Specific [place] Creatinine Crossmatch 06/20/21 06/20/21 06/20/21 04:33 05:27 11:21 WBC RBC Hgb Hct MCV MCH RDW Plt Count Lymph % (Auto) [place] % (Auto) Lymph # (Auto) [place] # (Auto) Seg Neutrophils % Seg Neuts % (Manual) Lymphocytes % (Manual) Monocytes % (Manual) Seg Neutrophils # Seg Neutrophils # Man Lymphocytes # (Manual) Monocytes # (Manual) PT 18.3 H INR 1.37 H APTT Fibrinogen D-Dimer ABG pH POC ABG pCO2 POC ABG pO2 ABG pO2 ABG HCO3 ABG O2 Saturation ABG Base Excess ABG Hemoglobin ABG Oxyhemoglobin Oxyhemoglobin Sodium Potassium Chloride Carbon Dioxide BUN Creatinine Glucose POC Glucose 288 H 306 H Lactic Acid Calcium Phosphorus Magnesium AST ALT Alkaline Phosphatase C-Reactive Protein Total Protein Albumin Triglycerides Ur Specific [place] Creatinine Crossmatch 06/20/21 06/20/21 06/20/21 12:23 15:56 18:20 WBC RBC Hgb 8.2 L 8.1 L Hct 25.9 L 25.5 L MCV MCH RDW Plt Count Lymph % (Auto) [place] % (Auto) Lymph # (Auto) [place] # (Auto) Seg Neutrophils % Seg Neuts % (Manual) Lymphocytes % (Manual) Monocytes % (Manual) Seg Neutrophils # Seg Neutrophils # Man Lymphocytes # (Manual) Monocytes # (Manual) PT INR APTT Fibrinogen D-Dimer ABG pH POC ABG pCO2 POC ABG pO2 ABG pO2 ABG HCO3 ABG O2 Saturation ABG Base Excess ABG Hemoglobin ABG Oxyhemoglobin Oxyhemoglobin Sodium Potassium Chloride Carbon Dioxide BUN Creatinine Glucose POC Glucose 293 H Lactic Acid Calcium Phosphorus Magnesium AST ALT Alkaline Phosphatase C-Reactive Protein Total Protein Albumin Triglycerides Ur Specific [place] Creatinine Crossmatch 06/20/21 06/21/21 06/21/21 23:11 04:20 04:42 WBC 15.1 H RBC 2.84 L Hgb 7.3 L Hct 23.1 L MCV MCH 26 L RDW 21.5 H Plt Count Lymph % (Auto) 3.5 L [place] % (Auto) 11.7 H Lymph # (Auto) 0.5 L [place] # (Auto) 1.8 H Seg Neutrophils % 84.7 H Seg Neuts % (Manual) Lymphocytes % (Manual) Monocytes % (Manual) Seg Neutrophils # 12.8 H Seg Neutrophils # Man Lymphocytes # (Manual) Monocytes # (Manual) PT INR APTT Fibrinogen D-Dimer ABG pH POC ABG pCO2 POC ABG pO2 ABG pO2 98.5 H ABG HCO3 ABG O2 Saturation ABG Base Excess ABG Hemoglobin 7.2 L ABG Oxyhemoglobin Oxyhemoglobin Sodium Potassium Chloride Carbon Dioxide BUN Creatinine Glucose POC Glucose 206 H Lactic Acid Calcium Phosphorus Magnesium AST ALT Alkaline Phosphatase C-Reactive Protein Total Protein Albumin Triglycerides Ur Specific [place] Creatinine Crossmatch 06/21/21 06/21/21 06/21/21 04:42 05:08 11:06 WBC RBC Hgb Hct MCV MCH RDW Plt Count Lymph % (Auto) [place] % (Auto) Lymph # (Auto) [place] # (Auto) Seg Neutrophils % Seg Neuts % (Manual) Lymphocytes % (Manual) Monocytes % (Manual) Seg Neutrophils # Seg Neutrophils # Man Lymphocytes # (Manual) Monocytes # (Manual) PT INR APTT Fibrinogen D-Dimer ABG pH POC ABG pCO2 POC ABG pO2 ABG pO2 ABG HCO3 ABG O2 Saturation ABG Base Excess ABG Hemoglobin ABG Oxyhemoglobin Oxyhemoglobin Sodium 151 H Potassium Chloride 117.2 H Carbon Dioxide 21 L BUN 75 H Creatinine 1.6 H Glucose 216 H POC Glucose 190 H 204 H Lactic Acid Calcium 7.9 L Phosphorus Magnesium 2.60 H AST ALT Alkaline Phosphatase C-Reactive Protein Total Protein Albumin Triglycerides 254 H Ur Specific [place] Creatinine Crossmatch 06/21/21 06/21/21 06/21/21 14:00 16:42 21:52 WBC RBC Hgb 7.1 L 7.2 L Hct 22.0 L 22.1 L MCV MCH RDW Plt Count Lymph % (Auto) [place] % (Auto) Lymph # (Auto) [place] # (Auto) Seg Neutrophils % Seg Neuts % (Manual) Lymphocytes % (Manual) Monocytes % (Manual) Seg Neutrophils # Seg Neutrophils # Man Lymphocytes # (Manual) Monocytes # (Manual) PT INR APTT Fibrinogen D-Dimer ABG pH POC ABG pCO2 POC ABG pO2 ABG pO2 ABG HCO3 ABG O2 Saturation ABG Base Excess ABG Hemoglobin ABG Oxyhemoglobin Oxyhemoglobin Sodium Potassium Chloride Carbon Dioxide BUN Creatinine Glucose POC Glucose 207 H Lactic Acid Calcium Phosphorus Magnesium AST ALT Alkaline Phosphatase C-Reactive Protein Total Protein Albumin Triglycerides Ur Specific [place] Creatinine Crossmatch 06/21/21 06/22/21 06/22/21 23:29 04:30 04:30 WBC 16.8 H RBC 2.93 L Hgb 7.4 L Hct 23.9 L MCV MCH 25 L RDW 21.8 H Plt Count Lymph % (Auto) [place] % (Auto) Lymph # (Auto) [place] # (Auto) Seg Neutrophils % Seg Neuts % (Manual) Lymphocytes % (Manual) Monocytes % (Manual) Seg Neutrophils # Seg Neutrophils # Man Lymphocytes # (Manual) Monocytes # (Manual) PT INR APTT Fibrinogen D-Dimer ABG pH POC ABG pCO2 POC ABG pO2 ABG pO2 ABG HCO3 ABG O2 Saturation ABG Base Excess ABG Hemoglobin ABG Oxyhemoglobin Oxyhemoglobin Sodium 151 H Potassium Chloride 118.7 H Carbon Dioxide BUN 57 H Creatinine Glucose 238 H POC Glucose 273 H Lactic Acid Calcium 8.0 L Phosphorus Magnesium 2.70 H AST ALT Alkaline Phosphatase C-Reactive Protein Total Protein Albumin Triglycerides Ur Specific [place] Creatinine Crossmatch 06/22/21 06/22/21 06/22/21 05:17 11:31 14:20 WBC RBC Hgb 7.4 L Hct 22.5 L MCV MCH RDW Plt Count Lymph % (Auto) [place] % (Auto) Lymph # (Auto) [place] # (Auto) Seg Neutrophils % Seg Neuts % (Manual) Lymphocytes % (Manual) Monocytes % (Manual) Seg Neutrophils # Seg Neutrophils # Man Lymphocytes # (Manual) Monocytes # (Manual) PT INR APTT Fibrinogen D-Dimer ABG pH POC ABG pCO2 POC ABG pO2 ABG pO2 ABG HCO3 ABG O2 Saturation ABG Base Excess ABG Hemoglobin ABG Oxyhemoglobin Oxyhemoglobin Sodium Potassium Chloride Carbon Dioxide BUN Creatinine Glucose POC Glucose 214 H 214 H Lactic Acid Calcium Phosphorus Magnesium AST ALT Alkaline Phosphatase C-Reactive Protein Total Protein Albumin Triglycerides Ur Specific [place] Creatinine Crossmatch 06/22/21 06/22/21 06/23/21 17:18 23:47 05:33 WBC RBC Hgb Hct MCV MCH RDW Plt Count Lymph % (Auto) [place] % (Auto) Lymph # (Auto) [place] # (Auto) Seg Neutrophils % Seg Neuts % (Manual) Lymphocytes % (Manual) Monocytes % (Manual) Seg Neutrophils # Seg Neutrophils # Man Lymphocytes # (Manual) Monocytes # (Manual) PT INR APTT Fibrinogen D-Dimer ABG pH POC ABG pCO2 POC ABG pO2 ABG pO2 ABG HCO3 ABG O2 Saturation ABG Base Excess ABG Hemoglobin ABG Oxyhemoglobin Oxyhemoglobin Sodium Potassium Chloride Carbon Dioxide BUN Creatinine Glucose POC Glucose 238 H 227 H 202 H Lactic Acid Calcium Phosphorus Magnesium AST ALT Alkaline Phosphatase C-Reactive Protein Total Protein Albumin Triglycerides Ur Specific [place] Creatinine Crossmatch 06/23/21 06/23/21 06/23/21 10:04 10:04 11:06 WBC 20.3 H RBC 2.71 L Hgb 7.3 L Hct 21.8 L MCV MCH 27 L RDW 22.1 H Plt Count Lymph % (Auto) [place] % (Auto) Lymph # (Auto) [place] # (Auto) Seg Neutrophils % Seg Neuts % (Manual) Lymphocytes % (Manual) Monocytes % (Manual) Seg Neutrophils # Seg Neutrophils # Man Lymphocytes # (Manual) Monocytes # (Manual) PT INR APTT Fibrinogen D-Dimer ABG pH POC ABG pCO2 POC ABG pO2 ABG pO2 ABG HCO3 ABG O2 Saturation ABG Base Excess ABG Hemoglobin ABG Oxyhemoglobin Oxyhemoglobin Sodium 151 H Potassium 3.2 L Chloride 116.9 H Carbon Dioxide BUN 40 H Creatinine Glucose 208 H POC Glucose 204 H Lactic Acid Calcium 8.0 L Phosphorus 1.80 L D Magnesium AST ALT Alkaline Phosphatase C-Reactive Protein Total Protein Albumin Triglycerides Ur Specific [place]rine Creatinine Crossmatch 06/23/21 06/23/21 06/24/21 16:11 23:47 04:00 WBC 16.9 H RBC 2.49 L Hgb 6.6 L Hct 20.3 L MCV MCH 26 L RDW 22.6 H Plt Count Lymph % (Auto) [place] % (Auto) Lymph # (Auto) [place] # (Auto) Seg Neutrophils % Seg Neuts % (Manual) Lymphocytes % (Manual) Monocytes % (Manual) Seg Neutrophils # Seg Neutrophils # Man Lymphocytes # (Manual) Monocytes # (Manual) PT INR APTT Fibrinogen D-Dimer ABG pH POC ABG pCO2 POC ABG pO2 ABG pO2 ABG HCO3 ABG O2 Saturation ABG Base Excess ABG Hemoglobin ABG Oxyhemoglobin Oxyhemoglobin Sodium Potassium Chloride Carbon Dioxide BUN Creatinine Glucose POC Glucose 228 H 189 H Lactic Acid Calcium Phosphorus Magnesium AST ALT Alkaline Phosphatase C-Reactive Protein Total Protein Albumin Triglycerides Ur Specific [place]rine Creatinine Crossmatch 06/24/21 06/24/21 06/24/21 04:00 05:43 06:40 WBC RBC Hgb Hct MCV MCH RDW Plt Count Lymph % (Auto) [place] % (Auto) Lymph # (Auto) [place] # (Auto) Seg Neutrophils % Seg Neuts % (Manual) Lymphocytes % (Manual) Monocytes % (Manual) Seg Neutrophils # Seg Neutrophils # Man Lymphocytes # (Manual) Monocytes # (Manual) PT INR APTT Fibrinogen D-Dimer ABG pH POC ABG pCO2 POC ABG pO2 ABG pO2 ABG HCO3 ABG O2 Saturation ABG Base Excess ABG Hemoglobin ABG Oxyhemoglobin Oxyhemoglobin Sodium 148 H Potassium 3.2 L Chloride 115.6 H Carbon Dioxide BUN 35 H Creatinine Glucose 153 H POC Glucose 134 H Lactic Acid Calcium 7.9 L Phosphorus 2.40 L D Magnesium AST ALT Alkaline Phosphatase C-Reactive Protein Total Protein Albumin Triglycerides Ur Specific [place]rine Creatinine Crossmatch See Detail 06/24/21 06/24/21 06/24/21 11:08 16:47 21:49 WBC RBC Hgb Hct MCV MCH RDW Plt Count Lymph % (Auto) [place] % (Auto) Lymph # (Auto) [place] # (Auto) Seg Neutrophils % Seg Neuts % (Manual) Lymphocytes % (Manual) Monocytes % (Manual) Seg Neutrophils # Seg Neutrophils # Man Lymphocytes # (Manual) Monocytes # (Manual) PT INR APTT Fibrinogen D-Dimer ABG pH POC ABG pCO2 POC ABG pO2 ABG pO2 ABG HCO3 ABG O2 Saturation ABG Base Excess ABG Hemoglobin ABG Oxyhemoglobin Oxyhemoglobin Sodium Potassium Chloride Carbon Dioxide BUN Creatinine Glucose POC Glucose 153 H 201 H 132 H Lactic Acid Calcium Phosphorus Magnesium AST ALT Alkaline Phosphatase C-Reactive Protein Total Protein Albumin Triglycerides Ur Specific [place]rine Creatinine Crossmatch 06/24/21 06/25/21 06/25/21 23:24 05:30 09:00 WBC RBC Hgb 8.3 L Hct 27.0 L MCV MCH RDW Plt Count Lymph % (Auto) [place] % (Auto) Lymph # (Auto) [place] # (Auto) Seg Neutrophils % Seg Neuts % (Manual) Lymphocytes % (Manual) Monocytes % (Manual) Seg Neutrophils # Seg Neutrophils # Man Lymphocytes # (Manual) Monocytes # (Manual) PT INR APTT Fibrinogen D-Dimer ABG pH POC ABG pCO2 POC ABG pO2 ABG pO2 ABG HCO3 ABG O2 Saturation ABG Base Excess ABG Hemoglobin ABG Oxyhemoglobin Oxyhemoglobin Sodium Potassium Chloride Carbon Dioxide BUN Creatinine Glucose POC Glucose 170 H 151 H Lactic Acid Calcium Phosphorus Magnesium AST ALT Alkaline Phosphatase C-Reactive Protein Total Protein Albumin Triglycerides Ur Specific [place]rine Creatinine Crossmatch 06/25/21 06/25/21 06/25/21 11:29 14:24 16:48 WBC RBC Hgb 8.5 L Hct 27.5 L MCV MCH RDW Plt Count Lymph % (Auto) [place] % (Auto) Lymph # (Auto) [place] # (Auto) Seg Neutrophils % Seg Neuts % (Manual) Lymphocytes % (Manual) Monocytes % (Manual) Seg Neutrophils # Seg Neutrophils # Man Lymphocytes # (Manual) Monocytes # (Manual) PT INR APTT Fibrinogen D-Dimer ABG pH POC ABG pCO2 POC ABG pO2 ABG pO2 ABG HCO3 ABG O2 Saturation ABG Base Excess ABG Hemoglobin ABG Oxyhemoglobin Oxyhemoglobin Sodium Potassium Chloride Carbon Dioxide BUN Creatinine Glucose POC Glucose 189 H 224 H Lactic Acid Calcium Phosphorus Magnesium AST ALT Alkaline Phosphatase C-Reactive Protein Total Protein Albumin Triglycerides Ur Specific [place] Creatinine Crossmatch 06/25/21 06/25/21 06/25/21 23:39 Unknown Unknown WBC 16.5 H RBC 2.90 L Hgb 8.0 L Hct 23.8 L MCV MCH RDW 22.8 H Plt Count Lymph % (Auto) [place] % (Auto) Lymph # (Auto) [place] # (Auto) Seg Neutrophils % Seg Neuts % (Manual) Lymphocytes % (Manual) Monocytes % (Manual) Seg Neutrophils # Seg Neutrophils # Man Lymphocytes # (Manual) Monocytes # (Manual) PT INR APTT Fibrinogen D-Dimer ABG pH POC ABG pCO2 POC ABG pO2 ABG pO2 ABG HCO3 ABG O2 Saturation ABG Base Excess ABG Hemoglobin ABG Oxyhemoglobin Oxyhemoglobin Sodium 149 H Potassium Chloride 115.6 H Carbon Dioxide BUN 28 H Creatinine Glucose 157 H POC Glucose 187 H Lactic Acid Calcium 8.0 L Phosphorus Magnesium AST ALT Alkaline Phosphatase C-Reactive Protein Total Protein Albumin Triglycerides Ur Specific [place]rine Creatinine Crossmatch 06/26/21 06/26/21 06/26/21 05:22 05:29 05:29 WBC 16.2 H RBC 3.03 L Hgb 8.0 L Hct 25.1 L MCV MCH 26 L RDW 23.2 H Plt Count Lymph % (Auto) [place] % (Auto) Lymph # (Auto) [place] # (Auto) Seg Neutrophils % Seg Neuts % (Manual) Lymphocytes % (Manual) Monocytes % (Manual) Seg Neutrophils # Seg Neutrophils # Man Lymphocytes # (Manual) Monocytes # (Manual) PT INR APTT Fibrinogen D-Dimer ABG pH POC ABG pCO2 POC ABG pO2 ABG pO2 ABG HCO3 ABG O2 Saturation ABG Base Excess ABG Hemoglobin ABG Oxyhemoglobin Oxyhemoglobin Sodium 150 H Potassium Chloride 114.8 H Carbon Dioxide BUN 29 H Creatinine Glucose 229 H POC Glucose 211 H Lactic Acid Calcium 8.2 L Phosphorus Magnesium AST ALT Alkaline Phosphatase C-Reactive Protein Total Protein Albumin Triglycerides Ur Specific [place] Urine Creatinine Crossmatch 06/26/21 06/26/21 06/26/21 11:05 15:59 22:00 WBC RBC Hgb Hct MCV MCH RDW Plt Count Lymph % (Auto) [place] % (Auto) Lymph # (Auto) [place] # (Auto) Seg Neutrophils % Seg Neuts % (Manual) Lymphocytes % (Manual) Monocytes % (Manual) Seg Neutrophils # Seg Neutrophils # Man Lymphocytes # (Manual) Monocytes # (Manual) PT INR APTT Fibrinogen D-Dimer ABG pH POC ABG pCO2 POC ABG pO2 ABG pO2 ABG HCO3 ABG O2 Saturation ABG Base Excess ABG Hemoglobin ABG Oxyhemoglobin Oxyhemoglobin Sodium Potassium Chloride Carbon Dioxide BUN Creatinine Glucose POC Glucose 213 H 222 H 161 H Lactic Acid Calcium Phosphorus Magnesium AST ALT Alkaline Phosphatase C-Reactive Protein Total Protein Albumin Triglycerides Ur Specific [place] Urine Creatinine Crossmatch 06/26/21 06/27/21 06/27/21 23:24 04:15 04:15 WBC 14.3 H RBC 2.96 L Hgb 8.1 L Hct 24.6 L MCV MCH 27 L RDW 23.0 H Plt Count Lymph % (Auto) [place] % (Auto) Lymph # (Auto) [place] # (Auto) Seg Neutrophils % Seg Neuts % (Manual) Lymphocytes % (Manual) Monocytes % (Manual) Seg Neutrophils # Seg Neutrophils # Man Lymphocytes # (Manual) Monocytes # (Manual) PT INR APTT Fibrinogen D-Dimer ABG pH POC ABG pCO2 POC ABG pO2 ABG pO2 ABG HCO3 ABG O2 Saturation ABG Base Excess ABG Hemoglobin ABG Oxyhemoglobin Oxyhemoglobin Sodium 150 H Potassium Chloride 113.8 H Carbon Dioxide BUN 26 H Creatinine Glucose 246 H POC Glucose 164 H Lactic Acid Calcium 7.8 L Phosphorus Magnesium AST ALT Alkaline Phosphatase C-Reactive Protein Total Protein Albumin Triglycerides Ur Specific [place] Urine Creatinine Crossmatch 06/27/21 06/27/21 06/27/21 05:44 11:07 16:06 WBC RBC Hgb Hct MCV MCH RDW Plt Count Lymph % (Auto) [place] % (Auto) Lymph # (Auto) [place] # (Auto) Seg Neutrophils % Seg Neuts % (Manual) Lymphocytes % (Manual) Monocytes % (Manual) Seg Neutrophils # Seg Neutrophils # Man Lymphocytes # (Manual) Monocytes # (Manual) PT INR APTT Fibrinogen D-Dimer ABG pH POC ABG pCO2 POC ABG pO2 ABG pO2 ABG HCO3 ABG O2 Saturation ABG Base Excess ABG Hemoglobin ABG Oxyhemoglobin Oxyhemoglobin Sodium Potassium Chloride Carbon Dioxide BUN Creatinine Glucose POC Glucose 226 H 204 H 224 H Lactic Acid Calcium Phosphorus Magnesium AST ALT Alkaline Phosphatase C-Reactive Protein Total Protein Albumin Triglycerides Ur Specific [place] Urine Creatinine Crossmatch 06/27/21 06/28/21 06/28/21 23:49 04:00 04:00 WBC 15.4 H RBC 3.05 L Hgb 8.2 L Hct 25.0 L MCV MCH 27 L RDW 22.6 H Plt Count Lymph % (Auto) [place] % (Auto) Lymph # (Auto) [place] # (Auto) Seg Neutrophils % Seg Neuts % (Manual) Lymphocytes % (Manual) Monocytes % (Manual) Seg Neutrophils # Seg Neutrophils # Man Lymphocytes # (Manual) Monocytes # (Manual) PT INR APTT Fibrinogen D-Dimer ABG pH POC ABG pCO2 POC ABG pO2 ABG pO2 ABG HCO3 ABG O2 Saturation ABG Base Excess ABG Hemoglobin ABG Oxyhemoglobin Oxyhemoglobin Sodium 152 H Potassium 3.0 L Chloride 114.9 H Carbon Dioxide BUN 24 H Creatinine Glucose 158 H POC Glucose 195 H Lactic Acid Calcium 8.1 L Phosphorus Magnesium AST ALT Alkaline Phosphatase C-Reactive Protein Total Protein Albumin Triglycerides Ur Specific [place] Urine Creatinine Crossmatch 06/28/21 06/28/21 06/28/21 05:05 11:47 17:21 WBC RBC Hgb Hct MCV MCH RDW Plt Count Lymph % (Auto) [place] % (Auto) Lymph # (Auto) [place] # (Auto) Seg Neutrophils % Seg Neuts % (Manual) Lymphocytes % (Manual) Monocytes % (Manual) Seg Neutrophils # Seg Neutrophils # Man Lymphocytes # (Manual) Monocytes # (Manual) PT INR APTT Fibrinogen D-Dimer ABG pH POC ABG pCO2 POC ABG pO2 ABG pO2 ABG HCO3 ABG O2 Saturation ABG Base Excess ABG Hemoglobin ABG Oxyhemoglobin Oxyhemoglobin Sodium Potassium Chloride Carbon Dioxide BUN Creatinine Glucose POC Glucose 121 H 164 H 166 H Lactic Acid Calcium Phosphorus Magnesium AST ALT Alkaline Phosphatase C-Reactive Protein Total Protein Albumin Triglycerides Ur Specific [place]rine Creatinine Crossmatch 06/28/21 06/28/21 06/29/21 18:14 21:54 00:55 WBC RBC Hgb Hct MCV MCH RDW Plt Count Lymph % (Auto) [place] % (Auto) Lymph # (Auto) [place] # (Auto) Seg Neutrophils % Seg Neuts % (Manual) Lymphocytes % (Manual) Monocytes % (Manual) Seg Neutrophils # Seg Neutrophils # Man Lymphocytes # (Manual) Monocytes # (Manual) PT INR APTT Fibrinogen D-Dimer ABG pH POC ABG pCO2 POC ABG pO2 ABG pO2 ABG HCO3 ABG O2 Saturation ABG Base Excess ABG Hemoglobin ABG Oxyhemoglobin Oxyhemoglobin Sodium Potassium Chloride Carbon Dioxide BUN Creatinine Glucose POC Glucose 150 H 148 H 176 H Lactic Acid Calcium Phosphorus Magnesium AST ALT Alkaline Phosphatase C-Reactive Protein Total Protein Albumin Triglycerides Ur Specific [place]rine Creatinine Crossmatch 06/29/21 06/29/21 06/29/21 04:00 04:00 05:20 WBC 15.3 H RBC 3.04 L Hgb 8.0 L Hct 25.0 L MCV MCH 26 L RDW 22.3 H Plt Count Lymph % (Auto) [place] % (Auto) Lymph # (Auto) [place] # (Auto) Seg Neutrophils % Seg Neuts % (Manual) Lymphocytes % (Manual) Monocytes % (Manual) Seg Neutrophils # Seg Neutrophils # Man Lymphocytes # (Manual) Monocytes # (Manual) PT INR APTT Fibrinogen D-Dimer ABG pH POC ABG pCO2 POC ABG pO2 ABG pO2 ABG HCO3 ABG O2 Saturation ABG Base Excess ABG Hemoglobin ABG Oxyhemoglobin Oxyhemoglobin Sodium Potassium 3.1 L Chloride 108.7 H Carbon Dioxide BUN 20 H Creatinine Glucose 194 H POC Glucose 185 H Lactic Acid Calcium 8.0 L Phosphorus Magnesium AST ALT Alkaline Phosphatase C-Reactive Protein Total Protein Albumin Triglycerides Ur Specific [place]rine Creatinine Crossmatch 06/29/21 06/29/21 06/30/21 12:18 17:20 00:49 WBC RBC Hgb Hct MCV MCH RDW Plt Count Lymph % (Auto) [place] % (Auto) Lymph # (Auto) [place] # (Auto) Seg Neutrophils % Seg Neuts % (Manual) Lymphocytes % (Manual) Monocytes % (Manual) Seg Neutrophils # Seg Neutrophils # Man Lymphocytes # (Manual) Monocytes # (Manual) PT INR APTT Fibrinogen D-Dimer ABG pH POC ABG pCO2 POC ABG pO2 ABG pO2 ABG HCO3 ABG O2 Saturation ABG Base Excess ABG Hemoglobin ABG Oxyhemoglobin Oxyhemoglobin Sodium Potassium Chloride Carbon Dioxide BUN Creatinine Glucose POC Glucose 135 H 185 H 156 H Lactic Acid Calcium Phosphorus Magnesium AST ALT Alkaline Phosphatase C-Reactive Protein Total Protein Albumin Triglycerides Ur Specific [place]rine Creatinine Crossmatch 06/30/21 06/30/21 06/30/21 04:25 04:25 08:14 WBC 13.0 H RBC 3.19 L Hgb 8.2 L Hct 26.2 L MCV MCH 26 L RDW 22.3 H Plt Count Lymph % (Auto) [place] % (Auto) Lymph # (Auto) [place] # (Auto) Seg Neutrophils % Seg Neuts % (Manual) 81.0 H Lymphocytes % (Manual) 10.0 L Monocytes % (Manual) 8.0 H Seg Neutrophils # Seg Neutrophils # Man 10.5 H Lymphocytes # (Manual) Monocytes # (Manual) 1.0 H PT INR APTT Fibrinogen D-Dimer ABG pH POC ABG pCO2 POC ABG pO2 ABG pO2 ABG HCO3 ABG O2 Saturation ABG Base Excess ABG Hemoglobin ABG Oxyhemoglobin Oxyhemoglobin Sodium Potassium 3.0 L Chloride Carbon Dioxide BUN 20 H Creatinine Glucose 104 H POC Glucose 119 H Lactic Acid Calcium 8.3 L Phosphorus Magnesium AST ALT Alkaline Phosphatase C-Reactive Protein Total Protein Albumin Triglycerides Ur Specific [place] Urine Creatinine Crossmatch 06/30/21 06/30/21 06/30/21 11:36 16:24 22:44 WBC RBC Hgb Hct MCV MCH RDW Plt Count Lymph % (Auto) [place] % (Auto) Lymph # (Auto) [place] # (Auto) Seg Neutrophils % Seg Neuts % (Manual) Lymphocytes % (Manual) Monocytes % (Manual) Seg Neutrophils # Seg Neutrophils # Man Lymphocytes # (Manual) Monocytes # (Manual) PT INR APTT Fibrinogen D-Dimer ABG pH POC ABG pCO2 POC ABG pO2 ABG pO2 ABG HCO3 ABG O2 Saturation ABG Base Excess ABG Hemoglobin ABG Oxyhemoglobin Oxyhemoglobin Sodium Potassium Chloride Carbon Dioxide BUN Creatinine Glucose POC Glucose 154 H 208 H 174 H Lactic Acid Calcium Phosphorus Magnesium AST ALT Alkaline Phosphatase C-Reactive Protein Total Protein Albumin Triglycerides Ur Specific [place] Urine Creatinine Crossmatch 07/01/21 07/01/21 07/01/21 05:29 05:29 05:54 WBC 11.9 H RBC 3.00 L Hgb 8.1 L Hct 24.4 L MCV MCH 27 L RDW 21.7 H Plt Count Lymph % (Auto) [place] % (Auto) Lymph # (Auto) [place] # (Auto) Seg Neutrophils % Seg Neuts % (Manual) Lymphocytes % (Manual) Monocytes % (Manual) Seg Neutrophils # Seg Neutrophils # Man Lymphocytes # (Manual) Monocytes # (Manual) PT INR APTT Fibrinogen D-Dimer ABG pH POC ABG pCO2 POC ABG pO2 ABG pO2 ABG HCO3 ABG O2 Saturation ABG Base Excess ABG Hemoglobin ABG Oxyhemoglobin Oxyhemoglobin Sodium Potassium Chloride Carbon Dioxide BUN Creatinine Glucose 177 H POC Glucose 170 H Lactic Acid Calcium Phosphorus Magnesium AST ALT Alkaline Phosphatase C-Reactive Protein Total Protein Albumin Triglycerides Ur Specific [place]rine Creatinine Crossmatch 07/01/21 07/02/21 07/02/21 10:54 05:05 10:18 WBC RBC Hgb Hct MCV MCH RDW Plt Count Lymph % (Auto) [place] % (Auto) Lymph # (Auto) [place] # (Auto) Seg Neutrophils % Seg Neuts % (Manual) Lymphocytes % (Manual) Monocytes % (Manual) Seg Neutrophils # Seg Neutrophils # Man Lymphocytes # (Manual) Monocytes # (Manual) PT INR APTT Fibrinogen D-Dimer ABG pH 7.488 H POC ABG pCO2 POC ABG pO2 ABG pO2 97.2 H ABG HCO3 27.1 H ABG O2 Saturation ABG Base Excess 3.5 H ABG Hemoglobin 7.9 L ABG Oxyhemoglobin Oxyhemoglobin Sodium Potassium Chloride Carbon Dioxide BUN Creatinine Glucose POC Glucose 184 H 182 H Lactic Acid Calcium Phosphorus Magnesium AST ALT Alkaline Phosphatase C-Reactive Protein Total Protein Albumin Triglycerides Ur Specific [place]rine Creatinine Crossmatch 07/02/21 07/02/21 07/02/21 12:14 16:18 22:27 WBC RBC Hgb Hct MCV MCH RDW Plt Count Lymph % (Auto) [place] % (Auto) Lymph # (Auto) [place] # (Auto) Seg Neutrophils % Seg Neuts % (Manual) Lymphocytes % (Manual) Monocytes % (Manual) Seg Neutrophils # Seg Neutrophils # Man Lymphocytes # (Manual) Monocytes # (Manual) PT INR APTT Fibrinogen D-Dimer ABG pH 7.199 L* POC ABG pCO2 POC ABG pO2 ABG pO2 104.5 H ABG HCO3 30.3 H ABG O2 Saturation ABG Base Excess ABG Hemoglobin 9.8 L ABG Oxyhemoglobin Oxyhemoglobin 94.6 L Sodium Potassium Chloride Carbon Dioxide BUN Creatinine Glucose POC Glucose 184 H 194 H Lactic Acid Calcium Phosphorus Magnesium AST ALT Alkaline Phosphatase C-Reactive Protein Total Protein Albumin Triglycerides Ur Specific [place]rine Creatinine Crossmatch 07/03/21 07/03/21 07/03/21 09:47 10:44 11:24 WBC RBC 3.01 L Hgb 8.3 L Hct 24.3 L MCV MCH RDW 21.7 H Plt Count Lymph % (Auto) 8.4 L [place] % (Auto) Lymph # (Auto) 0.8 L [place] # (Auto) Seg Neutrophils % 80.6 H Seg Neuts % (Manual) Lymphocytes % (Manual) Monocytes % (Manual) Seg Neutrophils # Seg Neutrophils # Man Lymphocytes # (Manual) Monocytes # (Manual) PT INR APTT Fibrinogen D-Dimer ABG pH POC ABG pCO2 POC ABG pO2 ABG pO2 ABG HCO3 ABG O2 Saturation ABG Base Excess ABG Hemoglobin ABG Oxyhemoglobin Oxyhemoglobin Sodium Potassium 3.0 L Chloride Carbon Dioxide BUN Creatinine Glucose 200 H POC Glucose 180 H Lactic Acid Calcium 8.3 L Phosphorus Magnesium AST ALT Alkaline Phosphatase C-Reactive Protein Total Protein Albumin Triglycerides Ur Specific [place]rine Creatinine Crossmatch 07/03/21 07/03/21 07/03/21 16:34 22:14 22:15 WBC RBC Hgb Hct MCV MCH RDW Plt Count Lymph % (Auto) [place] % (Auto) Lymph # (Auto) [place] # (Auto) Seg Neutrophils % Seg Neuts % (Manual) Lymphocytes % (Manual) Monocytes % (Manual) Seg Neutrophils # Seg Neutrophils # Man Lymphocytes # (Manual) Monocytes # (Manual) PT INR APTT Fibrinogen D-Dimer ABG pH POC ABG pCO2 POC ABG pO2 ABG pO2 ABG HCO3 ABG O2 Saturation ABG Base Excess ABG Hemoglobin ABG Oxyhemoglobin Oxyhemoglobin Sodium Potassium Chloride Carbon Dioxide BUN Creatinine Glucose POC Glucose 165 H 174 H 180 H Lactic Acid Calcium Phosphorus Magnesium AST ALT Alkaline Phosphatase C-Reactive Protein Total Protein Albumin Triglycerides Ur Specific [place] Urine Creatinine Crossmatch 07/04/21 07/04/21 07/04/21 00:28 01:44 05:07 WBC RBC Hgb Hct MCV MCH RDW Plt Count Lymph % (Auto) [place] % (Auto) Lymph # (Auto) [place] # (Auto) Seg Neutrophils % Seg Neuts % (Manual) Lymphocytes % (Manual) Monocytes % (Manual) Seg Neutrophils # Seg Neutrophils # Man Lymphocytes # (Manual) Monocytes # (Manual) PT INR APTT Fibrinogen D-Dimer ABG pH POC ABG pCO2 POC ABG pO2 ABG pO2 107.7 H ABG HCO3 26.7 H ABG O2 Saturation ABG Base Excess ABG Hemoglobin 7.5 L ABG Oxyhemoglobin Oxyhemoglobin Sodium Potassium Chloride Carbon Dioxide BUN Creatinine Glucose POC Glucose 246 H 179 H Lactic Acid Calcium Phosphorus Magnesium AST ALT Alkaline Phosphatase C-Reactive Protein Total Protein Albumin Triglycerides Ur Specific [place]rine Creatinine Crossmatch 07/04/21 07/04/21 07/04/21 05:13 05:13 10:52 WBC RBC 3.12 L Hgb 8.5 L Hct 25.2 L MCV MCH 27 L RDW 21.3 H Plt Count Lymph % (Auto) 6.1 L [place] % (Auto) Lymph # (Auto) 0.6 L [place] # (Auto) Seg Neutrophils % 85.0 H Seg Neuts % (Manual) Lymphocytes % (Manual) Monocytes % (Manual) Seg Neutrophils # 8.0 H Seg Neutrophils # Man Lymphocytes # (Manual) Monocytes # (Manual) PT INR APTT Fibrinogen D-Dimer ABG pH POC ABG pCO2 POC ABG pO2 ABG pO2 ABG HCO3 ABG O2 Saturation ABG Base Excess ABG Hemoglobin ABG Oxyhemoglobin Oxyhemoglobin Sodium Potassium 3.4 L Chloride Carbon Dioxide BUN Creatinine Glucose 205 H POC Glucose 146 H Lactic Acid Calcium Phosphorus Magnesium AST ALT Alkaline Phosphatase C-Reactive Protein Total Protein Albumin Triglycerides Ur Specific [place] Urine Creatinine Crossmatch 07/04/21 07/04/21 07/05/21 16:22 23:52 04:38 WBC RBC Hgb Hct MCV MCH RDW Plt Count Lymph % (Auto) [place] % (Auto) Lymph # (Auto) [place] # (Auto) Seg Neutrophils % Seg Neuts % (Manual) Lymphocytes % (Manual) Monocytes % (Manual) Seg Neutrophils # Seg Neutrophils # Man Lymphocytes # (Manual) Monocytes # (Manual) PT INR APTT Fibrinogen D-Dimer ABG pH POC ABG pCO2 POC ABG pO2 ABG pO2 ABG HCO3 ABG O2 Saturation ABG Base Excess ABG Hemoglobin ABG Oxyhemoglobin Oxyhemoglobin Sodium Potassium 3.0 L Chloride Carbon Dioxide BUN 18 H Creatinine Glucose 174 H POC Glucose 154 H 193 H Lactic Acid Calcium Phosphorus 2.20 L Magnesium AST ALT Alkaline Phosphatase C-Reactive Protein Total Protein Albumin Triglycerides Ur Specific [place] Urine Creatinine Crossmatch 07/05/21 07/05/21 07/05/21 04:38 05:15 12:35 WBC RBC 2.95 L Hgb 7.8 L Hct 23.9 L MCV MCH 27 L RDW 21.0 H Plt Count Lymph % (Auto) [place] % (Auto) Lymph # (Auto) [place] # (Auto) Seg Neutrophils % Seg Neuts % (Manual) Lymphocytes % (Manual) Monocytes % (Manual) Seg Neutrophils # Seg Neutrophils # Man Lymphocytes # (Manual) Monocytes # (Manual) PT INR APTT Fibrinogen D-Dimer ABG pH POC ABG pCO2 POC ABG pO2 ABG pO2 ABG HCO3 ABG O2 Saturation ABG Base Excess ABG Hemoglobin ABG Oxyhemoglobin Oxyhemoglobin Sodium Potassium Chloride Carbon Dioxide BUN Creatinine Glucose POC Glucose 163 H 121 H Lactic Acid Calcium Phosphorus Magnesium AST ALT Alkaline Phosphatase C-Reactive Protein Total Protein Albumin Triglycerides Ur Specific [place] Urine Creatinine Crossmatch
--- NOTE | 2021-07-05 14:50 | Progress Note ---
Assessment and Plan Cultures: 06/12/2021 blood cultures: no growth A/P: 76-year-old female with diabetes, hypertension, gout was admitted to the hospital on 06/11/2021 with swelling of the submandibular region, tongue and difficulty breathing, labs also revealed severe coagulopathy due to Coumadin. 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 Shock resolved. s/p tracheostomy and PEG tube placement 06/19/2021. #Acute respiratory failure: s/p trach #Right-sided pneumothorax: s/p chest tube. #Diabetes mellitus, uncontrolled #Coagulopathy: Secondary to Coumadin. #Acute blood loss anemia Recs: -continue Zosyn. plan 21 days -continue on steroid taper per pulm/ICU Sinai Small MD [facility] ([facility] ([facility]) O: [phone] F: [phone] Subjective Date of service: 07/05/21 Interval history: Afebrile, normal white count. Objective - Exam Narrative Exam: Physical Exam: Constitutional: Awake, on T-piece Head, Ears, Nose: Normocephalic, atraumatic. External ears, nose normal Eyes: Conjunctivae/corneas clear. No icterus. No ptosis. Oral: trach Cardiovascular: S1, S2 + Respiratory: AE reduced, right-sided chest tube. GI: Soft, bowel sounds +, PEG + Musculoskeletal: No pedal edema, no cyanosis. Skin: No rash or abscess Hem/Lymphatic: No palpable cervical or supraclavicular nodes. No lymphangitis Psych: no agitation Neurological: on t-piece examined. - Constitutional Vitals: Vital Signs Temp Pulse Resp BP Pulse Ox 99.6 F 96 H 26 H 145/74 97 07/05/21 12:00 07/05/21 13:00 07/05/21 13:00 07/05/21 13:00 07/05/21 13:00 Temperature -Last 24 Hours Temperature 99.6 F Temperature 99.4 F Temperature 98.5 F Temperature 98.4 F Temperature 98.1 F Temperature 98.7 F - Labs CBC & Chem 7: 07/05/21 04:38 07/05/21 04:38 Labs: Abnormal lab results 07/04/21 07/04/21 07/05/21 Range/Units 16:22 23:52 04:38 RBC (3.65-5.03) M/mm3 Hgb (10.1-14.3) gm/dl Hct (30.3-42.9) % MCH (28-32) pg RDW (13.2-15.2) % Potassium 3.0 L (3.6-5.0) mmol/L BUN 18 H (7-17) mg/dL Glucose 174 H (65-100) mg/dL POC Glucose 154 H 193 H (70-105) mg/dL Phosphorus 2.20 L (2.5-4.5) mg/dL 07/05/21 07/05/21 07/05/21 Range/Units 04:38 05:15 12:35 RBC 2.95 L (3.65-5.03) M/mm3 Hgb 7.8 L (10.1-14.3) gm/dl Hct 23.9 L (30.3-42.9) % MCH 27 L (28-32) pg RDW 21.0 H (13.2-15.2) % Potassium (3.6-5.0) mmol/L BUN (7-17) mg/dL Glucose (65-100) mg/dL POC Glucose 163 H 121 H (70-105) mg/dL Phosphorus (2.5-4.5) mg/dL
--- NOTE | 2021-07-05 17:30 | Electrocardiograph Report ---
[facility] Test Date: 2021-07-03 Test Time: 22:30:03 Pat Name: TRESSA RABAGO Department: Room: A256 Gender: F Contemporary Or Modern Dancer: GUCCI : 1945 Requested By: MIKE CORTEZ Order Number: [id number] Reading MD: Dawna Becker Measurements Intervals [place] Rate: 160 P: 40 MN: 126 QRS: -32 QRSD: 86 T: 130 QT: 268 QTc: 437 Interpretive Statements Rapid atrial fibrillation Left anterior fascicular block Poor R wave progress, possible old anterolateral [place] Compared to ECG 06/20/2021 11:36:43 Atrial fibrillation has replaced multifocal atrial tachycardia Electronically Signed On 07-05-2021 17:29:49 EST by Dawna Becker
[2021-07-05] MEDS: traZODone 50 MG TAB PO SCH (21:37)
[2021-07-05] MEDS: ENOXAPARIN 40 MG/0.4 ML INJ SUB-Q SCH (21:37)
[2021-07-05] MEDS: MELATONIN 5 MG TAB PO SCH (21:38)
[2021-07-05] MEDS ORDERED: traZODone 50 MG TAB PO SCH (22:00)
[2021-07-05] MEDS: INSULIN GLARGINE 100 UNITS/ML SUB-Q SCH (22:25)
[2021-07-06] MEDS: INSULIN LISPRO 100 UNIT/ML SUB-Q SCH ×5 (00:12→23:07)
[2021-07-06] MEDS: hydrALAZINE 100 MG TAB FEEDTUBE SCH ×3 (05:35→21:39)
[2021-07-06 05:50] LABS: Blood Urea Nitrogen 14 mg/dL (7-17); Calcium 8.4 mg/dL (8.4-10.2); Hemolysis Index 0
[2021-07-06 06:00] LABS: BUN/Creatinine Ratio 23
[2021-07-06] MEDS ORDERED: POTASSIUM CHLORIDE 20 MEQ PACKET FEEDTUBE ONE ×2 (08:07→11:00)
[2021-07-06] MEDS ORDERED: MAGNESIUM SULFATE 2 GM/50 ML BAG IV ONE (08:07)
[2021-07-06] MEDS: amLODIPine 5 MG TAB PO SCH (10:19)
[2021-07-06] MEDS: FAMOTIDINE 20 MG TAB FEEDTUBE SCH ×2 (10:20→21:39)
--- NOTE | 2021-07-06 11:30 | Progress Note ---
<VIOLETTE DEMPSEY - Last Filed: 07/06/21 17:43> Assessment and Plan Assessment and plan: This is 76-year-old female with past medical history of diabetes mellitus type 2, hypertension and gout who was admitted to the hospital on 06/11/2021 with swelling of the submandibular region/tongue and shortness of breath. 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 Patient was also noted to have severe coagulopathy due to Coumadin and probably component of hemorrhagic shock with blood loss anemia. S/p vasopressor support with Levophed and Fabian-Synephrine Patient had hospital course complicated by cardiac arrest on 06/14 with ROSC. Patient is status post trach and PEG tube placement on 06/19/2021. Patient was a code met overnight and transfer back in the ICU on 07/04/21 due to decreased level of consciousness, respiratory distress and tachypnea. Hospital course to date: 06/12: Patient received additional 2 units FFP and 1 unit PRBC and vitamin K today. Overnight critical care placed a femoral CVL. Patient sedated on fentanyl, propofol and Versed. Currently on Fabian-Synephrine and Levophed for blood pressure maintenance. Remains amatory support. Infectious disease consult ed. Started on sliding scale insulin and recultured. COVID-19 PCR pending. Surgery at bedside to place chest tube. 06/13: Patient was taken back to the OR today for exchange cricothyroid to possible tracheostomy. Patient returned with ETT. Chest tube was changed to larger size in the OR. Patient was hypotensive, tachycardic, hypoxic in the OR and received hespan, albumin and an A-line. Upon arrival patient was increased to max dose Levophed for hypotension which has resolved. Titrating vasopressors as tolerated. Remains on sedation with 3 agents. Apparently patient was not ventilating her left lung Intra-Op. Noted to have subcu hematoma and trauma to postpharyngeal area. Questionable decrease cardiac wall motion noted in OR-> will order echocardiogram to further investigate. Patient received additional PRBC today. DIC panel resulted as normal. Patient BUN/creatinine did increase as well as noted to have lactic acidosis. May need IV bolus in addition to pressor use. Likely bronc with Pulmicort today as repeat CXR showed right possible pneumo hydrothorax 06/14: Antibiotics changed to Zosyn per ID, surgical packing removed from neck and makeshift Alexander drain placed by surgery and old chronic thyroidectomy site. CXR was completed and RN heard gurgling and blood was noted on dressing. ST elevation noted on bedside monitor and patient was hypoxic. FiO2 increased t o 100%. However shortly after patient lost her pulse and ACLS was initiated. Patient received 3 rounds of epinephrine and ROSC was achieved. Stat portable CXR showed resolution of lower lobe collapse on the left and stable right-sided chest tube with hemothorax. CCM updated family. Patient H/H noted to be 7.2/23.2 and did RN to transfuse prepared PRBC which [facility] blood bank. Bedside echo completed. 06/15: Off sedation, intermittently follows commands, remains on the prednisone. Surgery will reassess airway on Thursday to see if any further support is required. Urine studies indicate prerenal, given IV bolus and started on Clinimix today. 06/16: Patient restarted on fentanyl drip due to hypertension. Given more LR due to CR improvement post LR yesterday. Patient started on Lantus subcu after given one-time dose of Lantus. PICC placed today. Patient had a CT chest today which showed no mediasinusitis but extensive subcutaneous air. 06/17: General Surgery recommended transferring patient to a ENT specialized facility. Placed a call to [place], spoke with the actuarial trainee, Dr. Duckworth, who stated that a transfer is possible as long their ENT team accept the patient. Awaiting on a final response. Continue current supportive measures. Basal insulin adjusted for hyperglycemia. 06/18: JEREMIAS overnight. Hypertensive this am, PRN Hydralazine for SBP greater than 160. Remains hyperglycemic, patient is on IV steroids and TPN, basal insulin adjusted. Plan for possible transfer to [place] once an ICU bed is available. 06/19: Low SPO2 and hypotension overnight required Levophed for a short time. Overnight CXR noted with no significant changed. Patient is stable this am and off pressors. Plan for possible Trach and PEG today by General Surgery. 06/20: s/p Trach and PEG. Some bleeding overnight s/p X1 dose of Vitamin K. The bleeding resolved this am, H&H remains stable. Attempted a SAT this am, patient went into SVT, HR in the 160-170 which resolved once sedations were resumed. Plan is to continue to sedation for now, attempt to wean off propofol for a RASS goal of 0 to -2. D/C CCM plan is to wean off sedation as tolerated for PST for possible extubation. Okay to use PEGT per Gen. Surgery. Nutrition consulted for TF management, TF to start tonight once current TPN bag is completed. BG remains elevated, continue current SSI and basal for now, will start tapering IV steroids tomorrow. FWF added for hyponatremia. Wean off pressors as tolerated for MAP above 65. Possible transfer to [place] for ENT eval. 06/21: Overnight events and CXR noted. Worsen subcutaneous emphysema and Rt. Pneumo. CT remains in place and intact to cont. wall suction. Patient remains hemodynamically stable, still on low vent setting. will continue to monitor for now. Patient is also tolerating enteral nutrition via PEGT, TPN D/benjamín. H&H is also trending down, no s/s of any active bleeding. Will continue to trend H&H, transfuse if hgb is less than 7. FWF increased for hypernatremia. Still waiting on possible transfer to [place]. 06/22: JEREMIAS overnight. Subcutaneous emphysema is unchanged. CXR with mild improvement. Patient remains hemodynamically stable. Hydralazine added Q8hr for HTN. FWF increased for hypernatremia. Awaiting transfer to [place] for ENT eval. 06/23: Over 70cc from CT overnight, subcutaneous emphysema with mild improvement. Patient is also tolerating PST this am. Repeat CXR in the am. Patient is still hypertensive, will added norvasc for better control. Continue FWF for hypernatremia and electrolytes replacement as needed, repeat labs in the am. Sp betty in wbcs this am, patient remains afebrile and on IV Abx, most likely due to IV steroids continue to monitor. Continue to taper IV steroids. Hyperglycemia is also improving, continue current SSI and basal for now. 06/24: Patient is anemic today and transfused 1 unit PRBC, hypokalemia and hypophosphatemia repleted, will continue every 6 H/H for now to monitor for bleeding, steroid taper continues, still awaiting transfer to [place], PT/OT consulted, [facility] to talk to case management regarding LTAC transfer. 06/25: Patient responded appropriately to yesterday, placed on pressure support trial today. Per CCM hopefully T-piece in the next 24 to 48 hours and will continue decrease steroids further on . Lujan catheter removed today. 06/26: Patient started T-piece trials, H/H remained stable. Surgery plans to remove chest tube once weaned off ventilator. Increasing her water flush given hypernatremia. 06/27: Chest tube placed to waterseal, T-piece trial trials ongoing. Remains on Zosyn and steroids being tapered. Increasing free water flush, insulin and added 3 times daily insulin. 06/28: Hypernatremia persists, started on D5W for 1 L, replace potassium. Chest tube remains to waterseal. 06/29: Chest tube removed by surgery today, hyponatremia better and dextrose discontinued, hypokalemia noted which was repleted. Speech did see but patient had decreased voice quality and increased wob so aborted 06/30: Hypokalemia noted on labs will be repleted, leukocytosis continues to improve. Continues on T-piece trials and is following commands. 07/01: Transfer from ICU on 06/30. Patient was stable with a trach and T-piece on 5 L. Tolerating tube feeds. 07/02: Patient remains on T-piece with trach in place. On 5 L of O2. She is alert and responds appropriately but not well due to trach tube. Tolerating tube feeds. Appears comfortable. No complaints. No new events reported. Case management reports patient with plans for LTAC placement. 07/03: Patient remains on T-piece with trach in place. On 5 L of O2. Patient tolerating tube feeds. We will check CT of head, neck and chest per pulmonary and general surgery recommendations based on CBC this morning. If leukocytosis persists we will proceed with studies. Patient remains afebrile today. 07/04: s/p X1 dose of IV lasix, patient is now stable on the T-piece via trach at 28% and 5L. Patient remains afebrile, leukocytosis improved, and CXR wiht no significant change. PRN [place] added for pain management. Electrolytes repleted 07/05: Remains stable on T-piece. Complaint of lack of sleep and tiredness this am, Trazadone and melatonin added for sleep. Continue PT- increase mobility and possibly OOB to chair today. Continue pain management. Electrolytes repleted. 07/06: Rested overnight. And continue to tolerate T-piece at 28% and 5L. Continue trazadone and melatonin at night for sleep and pain control with PRN analgesia. Discussed possibility of down sizing the trach to an 8 Shiley with General Raysa jammie. Per Surgery downsizing would not be easy nor safe at this time. Plan to order #10 [facility] instead. Case management to arrange possible placement SNF vs subacute rehab. Assessment and Plan #Acute Hypoxic Respiratory Failure -S/p emergent cricothyroidectomy with surgery with 8.00 ETT -s/p trach 06/19 with surgery (#[address]) -T-piece trials started 06/26 -ST: Unable to tolerate [place] valve on 06/28 -Transfer back in the ICU on 07/04 due to respiratory distress -Patient is stable on T-piece at 28% 5L -CCM consulted, appreciate recommendations -Aspiration precaution HOB above 30 -Continue SPO2 monitoring for SPO2 goal above 92% #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 from dental caries #Leukocytosis-improved -CT neck with contrast showed a significant right floor of mild swelling with extension into the submandibular and submental spaces, significant thickening and inflammation involving the right pharyngeal wall, with the parapharyngeal and retropharyngeal spaces at the level of the thyroid cartilage, epiglottis significantly swollen and so are the aryepiglottic folds resulting in significant airway narrowing at this level, no lymphadenopathy, symmetric submandibular and parathyroid glands, S few scattered caries but no periapical lucencies, nonspecific calcification along the right lateral oropharynx, no definite stone seen within the territory of the submandibular gland ducts, no suspicious rashes lesion -Infectious disease and general surgery consulted, appreciate recommendations -Patient remains afebrile, leukocytosis improved -Hemodynamic stable, not on any perssors -Continue IV Abx- Zosyn per ID #Hypokalemia -Probably r/t to IV diuretic -K repleted -Monitor and replace electrolytes as needed -Repeat BMP, mag, &phosp in the am #Right-sided pneumothorax -s/p Right chest tube removed 06/29 -06/13 bronchoscopy showed possible blood clot in left lung which may be acting as mucous plug however it was left in place due to possible bleeding inside lung if removed. -06/16 CT chest shows moderate right pneumothorax with collapse of right upper lobe, right thoracostomy tube terminates at the collapsed right upper lobe, bilateral bronchus opacities compatible with infectious/inflammatory etiology, bilateral small pleural effusion, extensive subcutaneous air, small fluid collection in the anterior mediastinum is nonspecific #Hypertension #s/p Cardiac arrest -Patient s/p cardiac arrest with ROSC on 06/14. -S/p vasopressor support with Levophed and Fabian-Synephrine -06/13 Echocardiogram EF 65-70% -BP is stable continue current anihypertensive regimen -Continue blood pressure monitor per protocol -PRN labetalol for SBP greater than 160 #Diabetes mellitus type 2 -Continue SSI Q6hrs -Lantus Qhs -Avoid Hypoglycemia #Coagulopathy-resolved #Acute blood loss anemia-resolved -Patient was on coumadin at home -Continue Lovenix SubQ -Transfuse hemoglobin less than 7 -Monitor for signs of bleeding #GI/DVT Prophylaxis -PPI- Pepcid -Continue AC-Lovenox -SCDs to BLE while in bed The high probability of a clinically significant, sudden or life threatening deterioration of the [multiple] system(s) required my full and direct attention, intervention and personal management. The aggregate critical care time was [60] minutes. This time is in addition to time spent performing reported procedures but includes the following: [x] Data Review and interpretation [x] Patient assessment and monitoring of vital signs [x] Documentation [x] Medication orders and management Disposition Plan: ICU Total Time Spent with Patient (Minutes): 60 History Interval history: Patient seen and examined at the bedside. Remains stable on T-piece at 28% and 5L. JEREMIAS overnight. Per RN patient slept most of the night. Hospitalist Physical - Constitutional Vitals: Temp Pulse Resp BP Pulse Ox 99.4 F 93 H 22 139/78 99 07/06/21 08:00 07/06/21 10:19 07/06/21 09:01 07/06/21 10:19 07/06/21 09:55 General appearance: Present: no acute distress, obese (Morbidly obese), other (On T-piece with trach in place.) - EENT Eyes: Present: PERRL ENT: hearing intact - Neck Neck: Present: normal ROM - Respiratory Respiratory effort: normal Respiratory: bilateral: rhonchi - Cardiovascular Rhythm: regular Heart Sounds: Present: S1 & S2 - Extremities Extremities: no ischemia, pulses intact, pulses symmetrical Extremity abnormal: edema - Peripheral Assessment Generalized Edema Type: Non-pitting Edema Degree: 2+ Capillary Refill: < 3 seconds Skin Temperature: Warm Peripheral Pulses: within normal limits - Abdominal General gastrointestinal: soft, non-distended, normal bowel sounds - Integumentary Integumentary: Present: warm, dry - Psychiatric Psychiatric: appropriate mood/affect, cooperative - Neurologic Neurologic: moves all extremities (Generalized weakness), other (AAO) - Allied Health Allied health notes reviewed: nursing, case management HEART Score - HEART Score Troponin: Troponin T < 0.010 ng/mL (0.00-0.029) 06/11/21 23:21 Results - Labs CBC & Chem 7: 07/05/21 04:38 07/06/21 04:39 Labs: Laboratory Last Values WBC 7.7 K/mm3 (4.5-11.0) 07/05/21 04:38 RBC 2.95 M/mm3 (3.65-5.03) L 07/05/21 04:38 Hgb 7.8 gm/dl (10.1-14.3) L 07/05/21 04:38 Hct 23.9 % (30.3-42.9) L 07/05/21 04:38 MCV 81 fl (79-97) 07/05/21 04:38 MCH 27 pg (28-32) L 07/05/21 04:38 MCHC 33 % (30-34) 07/05/21 04:38 RDW 21.0 % (13.2-15.2) H 07/05/21 04:38 Plt Count 205 K/mm3 (140-440) 07/05/21 04:38 Lymph % (Auto) 6.1 % (13.4-35.0) L 07/04/21 05:13 Garrett % (Auto) 6.6 % (0.0-7.3) 07/04/21 05:13 Eos % (Auto) 1.8 % (0.0-4.3) 07/04/21 05:13 Baso % (Auto) 0.5 % (0.0-1.8) 07/04/21 05:13 Lymph # (Auto) 0.6 K/mm3 (1.2-5.4) L 07/04/21 05:13 Garrett # (Auto) 0.6 K/mm3 (0.0-0.8) 07/04/21 05:13 Eos # (Auto) 0.2 K/mm3 (0.0-0.4) 07/04/21 05:13 Baso # (Auto) 0.0 K/mm3 (0.0-0.1) 07/04/21 05:13 Add Manual Diff Complete 06/30/21 04:25 Total Counted 100 06/30/21 04:25 Seg Neutrophils % 85.0 % (40.0-70.0) H 07/04/21 05:13 Seg Neuts % (Manual) 81.0 % (40.0-70.0) H 06/30/21 04:25 Band Neutrophils % 0 % 06/30/21 04:25 Lymphocytes % (Manual) 10.0 % (13.4-35.0) L 06/30/21 04:25 Reactive Lymphs % (Man) 0 % 06/30/21 04:25 Monocytes % (Manual) 8.0 % (0.0-7.3) H 06/30/21 04:25 Eosinophils % (Manual) 1.0 % (0.0-4.3) 06/30/21 04:25 Basophils % (Manual) 0 % (0.0-1.8) 06/30/21 04:25 Metamyelocytes % 0 % 06/30/21 04:25 Myelocytes % 0 % 06/30/21 04:25 Promyelocytes % 0 % 06/30/21 04:25 Blast Cells % 0 % 06/30/21 04:25 Nucleated RBC % Not Reportable 06/30/21 04:25 Seg Neutrophils # 8.0 K/mm3 (1.8-7.7) H 07/04/21 05:13 Seg Neutrophils # Man 10.5 K/mm3 (1.8-7.7) H 06/30/21 04:25 Band Neutrophils # 0.0 K/mm3 06/30/21 04:25 Lymphocytes # (Manual) 1.3 K/mm3 (1.2-5.4) 06/30/21 04:25 Abs React Lymphs (Man) 0.0 K/mm3 06/30/21 04:25 Monocytes # (Manual) 1.0 K/mm3 (0.0-0.8) H 06/30/21 04:25 Eosinophils # (Manual) 0.1 K/mm3 (0.0-0.4) 06/30/21 04:25 Basophils # (Manual) 0.0 K/mm3 (0.0-0.1) 06/30/21 04:25 Metamyelocytes # 0.0 K/mm3 06/30/21 04:25 Myelocytes # 0.0 K/mm3 06/30/21 04:25 Promyelocytes # 0.0 K/mm3 06/30/21 04:25 Blast Cells # 0.0 K/mm3 06/30/21 04:25 WBC Morphology Not Reportable 06/30/21 04:25 Hypersegmented Neuts Not Reportable 06/30/21 04:25 Hyposegmented Neuts Not Reportable 06/30/21 04:25 Hypogranular Neuts Not Reportable 06/30/21 04:25 Smudge Cells Not Reportable 06/30/21 04:25 Toxic Granulation Not Reportable 06/30/21 04:25 Toxic Vacuolation Not Reportable 06/30/21 04:25 Dohle Bodies Not Reportable 06/30/21 04:25 Pelger-Huet Anomaly Not Reportable 06/30/21 04:25 Dennis Rods Not Reportable 06/30/21 04:25 Platelet Estimate Consistent w auto 06/30/21 04:25 Clumped Platelets Not Reportable 06/30/21 04:25 Plt Clumps, EDTA Not Reportable 06/30/21 04:25 Large Platelets Few 06/30/21 04:25 Giant Platelets Not Reportable 06/30/21 04:25 Platelet Satelliting Not Reportable 06/30/21 04:25 Plt Morphology Comment Not Reportable 06/30/21 04:25 RBC Morphology Not Reportable 06/30/21 04:25 Dimorphic RBCs Not Reportable 06/30/21 04:25 Polychromasia Rare 06/30/21 04:25 Hypochromasia 1+ 06/30/21 04:25 Poikilocytosis Not Reportable 06/30/21 04:25 Anisocytosis 1+ 06/30/21 04:25 Microcytosis Not Reportable 06/30/21 04:25 Macrocytosis Not Reportable 06/30/21 04:25 Spherocytes Not Reportable 06/30/21 04:25 Pappenheimer Bodies Not Reportable 06/30/21 04:25 Sickle Cells Not Reportable 06/30/21 04:25 Target Cells Rare 06/30/21 04:25 Tear Drop Cells Few 06/30/21 04:25 Ovalocytes Not Reportable 06/30/21 04:25 Stomatocytes Few 06/12/21 01:45 Helmet Cells Not Reportable 06/30/21 04:25 [place] Bodies Not Reportable 06/30/21 04:25 Chilmark Rings Not Reportable 06/30/21 04:25 Bowers Cells Not Reportable 06/30/21 04:25 Bite Cells Not Reportable 06/30/21 04:25 Crenated Cell Not Reportable 06/30/21 04:25 Elliptocytes Not Reportable 06/30/21 04:25 Acanthocytes (Spur) Not Reportable 06/30/21 04:25 Rouleaux Not Reportable 06/30/21 04:25 Hemoglobin C Crystals Not Reportable 06/30/21 04:25 Schistocytes Not Reportable 06/30/21 04:25 Malaria parasites Not Reportable 06/30/21 04:25 Edin Bodies Not Reportable 06/30/21 04:25 Hem Pathologist Commnt No 06/30/21 04:25 PT 18.3 Sec. (12.2-14.9) H 06/20/21 04:33 INR 1.37 (0.87-1.13) H 06/20/21 04:33 APTT 26.4 Sec. (24.2-36.6) 06/13/21 Unknown Fibrinogen 546 mg/dl (211-480) H 06/13/21 Unknown D-Dimer 1244.63 ng/mlDDU (0-234) H 06/13/21 Unknown ABG pH 7.448 pH Units (7.350-7.450) 07/04/21 01:44 POC ABG pCO2 25.6 mmHg (32.0-48.0) L 06/13/21 04:31 ABG pCO2 39.5 mm Hg 07/04/21 01:44 POC ABG pO2 138.8 mmHg (83-108) H 06/13/21 04:31 ABG pO2 107.7 mm Hg (80.0-90.0) H 07/04/21 01:44 POC ABG HCO3 21.4 06/13/21 04:31 ABG HCO3 26.7 mmol/L (20.0-26.0) H 07/04/21 01:44 ABG O2 Saturation 98.0 % (95.0-99.0) 07/04/21 01:44 ABG O2 Content 10.3 (0.0-44) 07/04/21 01:44 POC ABG Base Excess -0.7 06/13/21 04:31 ABG Base Excess 2.5 mmol/L (-2.0-3.0) 07/04/21 01:44 ABG Hemoglobin 7.5 gm/dl (12.0-16.0) L 07/04/21 01:44 ABG Oxyhemoglobin 98.1 (94-98) H 06/13/21 04:31 ABG Carboxyhemoglobin 1.6 % (0.0-5.0) 07/04/21 01:44 ABG Methemoglobin 0.6 % (0.0-1.5) 07/04/21 01:44 Oxyhemoglobin 95.9 % (95.0-99.0) 07/04/21 01:44 Carboxyhemoglobin 0.8 (0.5-1.5) 06/13/21 04:31 FiO2 35 % 07/04/21 01:44 FiO2 % 40.0 06/13/21 04:31 Sodium 140 mmol/L (137-145) 07/06/21 04:39 Potassium 3.4 mmol/L (3.6-5.0) L 07/06/21 04:39 Chloride 105.0 mmol/L (98-107) 07/06/21 04:39 Carbon Dioxide 24 mmol/L (22-30) 07/06/21 04:39 Anion Gap 14 mmol/L 07/06/21 04:39 BUN 14 mg/dL (7-17) 07/06/21 04:39 Creatinine 0.6 mg/dL (0.6-1.2) 07/06/21 04:39 Estimated GFR > 60 ml/min 07/06/21 04:39 BUN/Creatinine Ratio 23 % 07/06/21 04:39 Glucose 180 mg/dL (65-100) H 07/06/21 04:39 POC Glucose 183 mg/dL (70-105) H 07/06/21 05:13 Lactic Acid 5.30 mmol/L (0.7-2.0) H* 06/13/21 15:45 Calcium 8.4 mg/dL (8.4-10.2) 07/06/21 04:39 Phosphorus 2.70 mg/dL (2.5-4.5) D 07/06/21 04:39 Magnesium 1.80 mg/dL (1.7-2.3) 07/06/21 04:39 Total Bilirubin 0.40 mg/dL (0.1-1.2) 06/15/21 03:56 AST 64 units/L (5-40) H 06/15/21 03:56 ALT 106 units/L (7-56) H 06/15/21 03:56 Alkaline Phosphatase 55 units/L (35-129) 06/15/21 03:56 Troponin T < 0.010 ng/mL (0.00-0.029) 06/11/21 23:21 C-Reactive Protein 3.30 mg/dL (0.00-1.30) H 06/16/21 04:32 Total Protein 5.1 g/dL (6.3-8.2) L 06/15/21 03:56 Albumin 2.9 g/dL (3.9-5) L 06/15/21 03:56 Albumin/Globulin Ratio 1.3 % 06/15/21 03:56 Triglycerides 254 mg/dL (2-149) H 06/21/21 04:42 Urine Color Yellow (Yellow) 06/12/21 17:00 Urine Turbidity Clear (Clear) 06/12/21 17:00 Urine pH 5.0 (5.0-7.0) 06/12/21 17:00 Ur Specific [place] 1.035 (1.003-1.030) H 06/12/21 17:00 Urine Protein 30 mg/dl mg/dL (Negative) 06/12/21 17:00 Urine Glucose (UA) 50 mg/dL (Negative) 06/12/21 17:00 Urine Ketones Tr mg/dL (Negative) 06/12/21 17:00 Urine Blood Neg (Negative) 06/12/21 17:00 Urine Nitrite Neg (Negative) 06/12/21 17:00 Urine Bilirubin Neg (Negative) 06/12/21 17:00 Urine Urobilinogen < 2.0 mg/dL (<2.0) 06/12/21 17:00 Ur Leukocyte Esterase Neg (Negative) 06/12/21 17:00 Urine WBC (Auto) < 1.0 /HPF (0.0-6.0) 06/12/21 17:00 Urine RBC (Auto) < 1.0 /HPF (0.0-6.0) 06/12/21 17:00 Urine Creatinine 81.1 mg/dL (0.1-20.0) H 06/15/21 10:40 Urine Sodium 42 mmol/L 06/15/21 10:40 Coronavirus (PCR) Negative (Negative) 06/12/21 09:50 Blood Type O POSITIVE 06/24/21 06:40 Antibody Screen Negative 06/24/21 06:40 Crossmatch See Detail 06/24/21 06:40 Lujan/IV: Voiding Method Indwelling Catheter Active Medications - Current Medications Current Medications: Generic Name Dose Route Start Last Admin Trade Name Freq PRN Reason Stop Dose Admin Hydrocodone Bitart/Acetaminophen 1 each 07/04/21 10:00 07/05/21 19:01 Hydrocodone/Acetaminophen 5-325 Mg Tab PO 1 each Q6H PRN Administration Pain, Moderate (4-6) Amlodipine Besylate 5 mg 06/23/21 10:00 07/06/21 10:19 Amlodipine 5 Mg Tab PO 5 mg QDAY JOLENE Administration Lipase/Protease/Amylase 1 each 06/19/21 19:20 Lipase 10,500/Protease 25,000/Amylase 43,750 (Units) Dr Melgar FEEDTUBE PRN PRN For Clogged Feeding Tube Atorvastatin Calcium 20 mg 06/22/21 22:00 07/05/21 21:36 Atorvastatin 20 Mg Tab PO 20 mg QHS JOLENE Administration Enoxaparin Sodium 40 mg 06/30/21 22:00 07/05/21 21:37 Enoxaparin 40 Mg/0.4 Ml Inj SUB-Q 40 mg QDAY@2200 JOLENE Administration Protocol Famotidine 20 mg 06/24/21 22:00 07/06/21 10:20 Famotidine 20 Mg Tab FEEDTUBE 20 mg BID JOLENE Administration Hydralazine HCl 100 mg 06/22/21 19:00 07/06/21 05:35 Hydralazine 100 Mg Tab FEEDTUBE 100 mg Q8HR [facility] Administration Hydrogen Peroxide/Benzyl Alcohol 1 applic 07/02/21 19:35 Hydrogen Peroxide 118 Ml Solution TP ONCE JOLENE Insulin Glargine 30 units 07/04/21 22:00 07/05/21 22:25 Insulin Glargine 100 Units/Ml SUB-Q 30 units QHS [facility] Administration Insulin Human Lispro 0 unit 06/12/21 12:00 07/06/21 06:17 Insulin Lispro 100 Unit/Ml SUB-Q 3 unit Q6HR [facility] Administration Protocol Labetalol HCl 10 mg 06/21/21 18:00 07/05/21 18:52 Labetalol 20 Mg/4 Ml Inj IV 10 mg Q4HR PRN Administration Hypertension Melatonin 5 mg 07/05/21 22:00 07/05/21 21:38 Melatonin 5 Mg Tab PO 5 mg QHS [facility] Administration Metoclopramide HCl 10 mg 06/11/21 20:42 Metoclopramide 10 Mg/2 Ml Inj IV Q6H PRN Nausea And Vomiting Ondansetron HCl 4 mg 06/11/21 20:42 Ondansetron 4 Mg/2 Ml Inj IV Q3H PRN Nausea And Vomiting Simple Syrup 15 ml 06/19/21 19:20 Simple Syrup 15 Ml FEEDTUBE PRN PRN Hypoglycemia Simple Syrup 30 ml 06/19/21 19:20 Simple Syrup 15 Ml FEEDTUBE PRN PRN Hypoglycemia Sodium Bicarbonate 325 mg 06/19/21 19:20 Sodium Bicarbonate 325 Mg Tab FEEDTUBE PRN PRN For Clogged Feeding Tube Sodium Chloride 10 ml 06/11/21 22:00 07/06/21 10:34 Sodium Chloride 0.9% 10 Ml Flush Syringe IV 10 ml BID JOLENE Administration Sodium Chloride 10 ml 06/11/21 20:42 Sodium Chloride 0.9% 10 Ml Flush Syringe IV PRN PRN LINE FLUSH Trazodone HCl 100 mg 07/05/21 22:00 07/05/21 21:37 Trazodone 50 Mg Tab PO 100 mg QHS [facility] Administration Nutrition/Malnutrition Assess - Dietary Evaluation Nutrition/Malnutrition Findings: Nutrition Notes Start: 06/16/21 12:10 Freq: Status: Active Protocol: Document 07/01/21 15:58 CANDIDO (Rec: 07/01/21 16:19 CANDIDO [id number]) Nutrition Notes Initial or Follow up Reassessment Current Diagnosis Diabetes,Sepsis,Hypertension, Respiratory Failure Other Pertinent Diagnosis Jeremiah's Angina, (R) Pneumothorax, Coagulopathy, s/ pCardiac Arrest, Gout... Current Diet TF-Vital AF 1.2 Quan @ 50 ml/hr (since D 06/21). Labs/Tests 07/01: Glu 177. Pertinent Medications 07/01: Insulin, others nutritionally unremarkable. Height 5 ft 8 in Weight 119.9 kg [place] Body Weight (kg) 63.63 BMI 40.1 Weight change and time frame 10.584 Kg body weight gain in 15 days reported Weight Status Morbidly Obese Subjective/Other Information RD consult for routine F/U on TF tolerance. TF continues as prescribed, with no significant events noted. Pt continues on Mechanical Ventilation through Tracheostomy, well tolerated, according to Progress notes. Hypernatremia controlled, flush backed off to 80 ml Q 4 hr. Pt still waiting for transfer to [place] or [facility]. Percent of energy/protein needs met: Prescribed Vital AF 1.2 Quan @ 50 ml/hr provides for energy/ protein needs (1,440 Kcal/90 g ) during LOS; 105% Kcal and 71 % AA. Burn Absent Trauma Absent GI Symptoms Other Difficulty In Swallowing,Chewing Food Allergy No Skin Integrity/Comment Surgical wounds. Current % PO Other Minimum of two criteria No #1 Nutrition Diagnosis Inadequate oral intake Diagnosis Progress(for reassessment Continues documentation) Is patient on ventilator? Yes Is Patient Ambulatory and/or Out of Bed No REE-([facility]-confined to bed) 4698.150 Calculation Used for Recommendations 65-70% energy needs Additional Notes Energy needs: 1280-1379kcal/ day Pro needs 2g/kg IBW: 127g/day Fluid needs 1ml/kcal Nutrition Intervention Nutrition Support: Continue Vital AF 1.2 Quan @ 50 ml/hr. Flush: 80 ml water flush Q 4 hr. Kcal 1,440 Protein (gm) 90 Carbohydrates (gm) 133 Fat (gm) 65 Fluid (mL) 973 Fiber (gm) 6 % RDI: 105% Kcal; 71% AA. Goal #1 Provide at least 75% of energy /protein needs through Enteral Feeding during LOS. Goal #2 Maintain body weight within +/ -3% of admission body weight during LOS. Follow-Up By: 07/08/21 Additional Comments Continue monitoring Mechanical Ventilation, Na/Flush, TF tolerance and BM. <MIKE CORTEZ - Last Filed: 07/07/21 07:19> Assessment and Plan Assessment and plan: I saw and evaluated the patient. I agree with the findings and the plan of care as documented in the Nurse Practitioner's~note, with the following corrections and additions. Hospitalist Physical - Constitutional Vitals: Temp Pulse Resp BP Pulse Ox 98.3 F 98 H 19 137/68 96 07/07/21 04:00 07/07/21 07:00 07/07/21 07:00 07/07/21 07:00 07/07/21 07:00 HEART Score - HEART Score Troponin: Troponin T < 0.010 ng/mL (0.00-0.029) 06/11/21 23:21 Results - Labs CBC & Chem 7: 07/05/21 04:38 07/07/21 04:10 Labs: Laboratory Last Values WBC 7.7 K/mm3 (4.5-11.0) 07/05/21 04:38 RBC 2.95 M/mm3 (3.65-5.03) L 07/05/21 04:38 Hgb 7.8 gm/dl (10.1-14.3) L 07/05/21 04:38 Hct 23.9 % (30.3-42.9) L 07/05/21 04:38 MCV 81 fl (79-97) 07/05/21 04:38 MCH 27 pg (28-32) L 07/05/21 04:38 MCHC 33 % (30-34) 07/05/21 04:38 RDW 21.0 % (13.2-15.2) H 07/05/21 04:38 Plt Count 205 K/mm3 (140-440) 07/05/21 04:38 Lymph % (Auto) 6.1 % (13.4-35.0) L 07/04/21 05:13 Garrett % (Auto) 6.6 % (0.0-7.3) 07/04/21 05:13 Eos % (Auto) 1.8 % (0.0-4.3) 07/04/21 05:13 Baso % (Auto) 0.5 % (0.0-1.8) 07/04/21 05:13 Lymph # (Auto) 0.6 K/mm3 (1.2-5.4) L 07/04/21 05:13 Garrett # (Auto) 0.6 K/mm3 (0.0-0.8) 07/04/21 05:13 Eos # (Auto) 0.2 K/mm3 (0.0-0.4) 07/04/21 05:13 Baso # (Auto) 0.0 K/mm3 (0.0-0.1) 07/04/21 05:13 Add Manual Diff Complete 06/30/21 04:25 Total Counted 100 06/30/21 04:25 Seg Neutrophils % 85.0 % (40.0-70.0) H 07/04/21 05:13 Seg Neuts % (Manual) 81.0 % (40.0-70.0) H 06/30/21 04:25 Band Neutrophils % 0 % 06/30/21 04:25 Lymphocytes % (Manual) 10.0 % (13.4-35.0) L 06/30/21 04:25 Reactive Lymphs % (Man) 0 % 06/30/21 04:25 Monocytes % (Manual) 8.0 % (0.0-7.3) H 06/30/21 04:25 Eosinophils % (Manual) 1.0 % (0.0-4.3) 06/30/21 04:25 Basophils % (Manual) 0 % (0.0-1.8) 06/30/21 04:25 Metamyelocytes % 0 % 06/30/21 04:25 Myelocytes % 0 % 06/30/21 04:25 Promyelocytes % 0 % 06/30/21 04:25 Blast Cells % 0 % 06/30/21 04:25 Nucleated RBC % Not Reportable 06/30/21 04:25 Seg Neutrophils # 8.0 K/mm3 (1.8-7.7) H 07/04/21 05:13 Seg Neutrophils # Man 10.5 K/mm3 (1.8-7.7) H 06/30/21 04:25 Band Neutrophils # 0.0 K/mm3 06/30/21 04:25 Lymphocytes # (Manual) 1.3 K/mm3 (1.2-5.4) 06/30/21 04:25 Abs React Lymphs (Man) 0.0 K/mm3 06/30/21 04:25 Monocytes # (Manual) 1.0 K/mm3 (0.0-0.8) H 06/30/21 04:25 Eosinophils # (Manual) 0.1 K/mm3 (0.0-0.4) 06/30/21 04:25 Basophils # (Manual) 0.0 K/mm3 (0.0-0.1) 06/30/21 04:25 Metamyelocytes # 0.0 K/mm3 06/30/21 04:25 Myelocytes # 0.0 K/mm3 06/30/21 04:25 Promyelocytes # 0.0 K/mm3 06/30/21 04:25 Blast Cells # 0.0 K/mm3 06/30/21 04:25 WBC Morphology Not Reportable 06/30/21 04:25 Hypersegmented Neuts Not Reportable 06/30/21 04:25 Hyposegmented Neuts Not Reportable 06/30/21 04:25 Hypogranular Neuts Not Reportable 06/30/21 04:25 Smudge Cells Not Reportable 06/30/21 04:25 Toxic Granulation Not Reportable 06/30/21 04:25 Toxic Vacuolation Not Reportable 06/30/21 04:25 Dohle Bodies Not Reportable 06/30/21 04:25 Pelger-Huet Anomaly Not Reportable 06/30/21 04:25 Dennis Rods Not Reportable 06/30/21 04:25 Platelet Estimate Consistent w auto 06/30/21 04:25 Clumped Platelets Not Reportable 06/30/21 04:25 Plt Clumps, EDTA Not Reportable 06/30/21 04:25 Large Platelets Few 06/30/21 04:25 Giant Platelets Not Reportable 06/30/21 04:25 Platelet Satelliting Not Reportable 06/30/21 04:25 Plt Morphology Comment Not Reportable 06/30/21 04:25 RBC Morphology Not Reportable 06/30/21 04:25 Dimorphic RBCs Not Reportable 06/30/21 04:25 Polychromasia Rare 06/30/21 04:25 Hypochromasia 1+ 02/27/22 04:25 Poikilocytosis Not Reportable 06/30/21 04:25 Anisocytosis 1+ 06/30/21 04:25 Microcytosis Not Reportable 06/30/21 04:25 Macrocytosis Not Reportable 06/30/21 04:25 Spherocytes Not Reportable 06/30/21 04:25 Pappenheimer Bodies Not Reportable 06/30/21 04:25 Sickle Cells Not Reportable 06/30/21 04:25 Target Cells Rare 06/30/21 04:25 Tear Drop Cells Few 06/30/21 04:25 Ovalocytes Not Reportable 06/30/21 04:25 Stomatocytes Few 06/12/21 01:45 Helmet Cells Not Reportable 06/30/21 04:25 Salamanca-Vado Bodies Not Reportable 06/30/21 04:25 Chilmark Rings Not Reportable 06/30/21 04:25 Nelsy Cells Not Reportable 06/30/21 04:25 Bite Cells Not Reportable 06/30/21 04:25 Crenated Cell Not Reportable 06/30/21 04:25 Elliptocytes Not Reportable 06/30/21 04:25 Acanthocytes (Spur) Not Reportable 06/30/21 04:25 Rouleaux Not Reportable 06/30/21 04:25 Hemoglobin C Crystals Not Reportable 06/30/21 04:25 Schistocytes Not Reportable 06/30/21 04:25 Malaria parasites Not Reportable 06/30/21 04:25 Edin Bodies Not Reportable 06/30/21 04:25 Hem Pathologist Commnt No 06/30/21 04:25 PT 18.3 Sec. (12.2-14.9) H 06/20/21 04:33 INR 1.37 (0.87-1.13) H 06/20/21 04:33 APTT 26.4 Sec. (24.2-36.6) 06/13/21 Unknown Fibrinogen 546 mg/dl (211-480) H 06/13/21 Unknown D-Dimer 1244.63 ng/mlDDU (0-234) H 06/13/21 Unknown ABG pH 7.448 pH Units (7.350-7.450) 07/04/21 01:44 POC ABG pCO2 25.6 mmHg (32.0-48.0) L 06/13/21 04:31 ABG pCO2 39.5 mm Hg 07/04/21 01:44 POC ABG pO2 138.8 mmHg (83-108) H 06/13/21 04:31 ABG pO2 107.7 mm Hg (80.0-90.0) H 07/04/21 01:44 POC ABG HCO3 21.4 06/13/21 04:31 ABG HCO3 26.7 mmol/L (20.0-26.0) H 07/04/21 01:44 ABG O2 Saturation 98.0 % (95.0-99.0) 07/04/21 01:44 ABG O2 Content 10.3 (0.0-44) 07/04/21 01:44 POC ABG Base Excess -0.7 06/13/21 04:31 ABG Base Excess 2.5 mmol/L (-2.0-3.0) 07/04/21 01:44 ABG Hemoglobin 7.5 gm/dl (12.0-16.0) L 07/04/21 01:44 ABG Oxyhemoglobin 98.1 (94-98) H 06/13/21 04:31 ABG Carboxyhemoglobin 1.6 % (0.0-5.0) 07/04/21 01:44 ABG Methemoglobin 0.6 % (0.0-1.5) 07/04/21 01:44 Oxyhemoglobin 95.9 % (95.0-99.0) 07/04/21 01:44 Carboxyhemoglobin 0.8 (0.5-1.5) 06/13/21 04:31 FiO2 35 % 07/04/21 01:44 FiO2 % 40.0 06/13/21 04:31 Sodium 137 mmol/L (137-145) 07/07/21 04:10 Potassium 3.1 mmol/L (3.6-5.0) L 07/07/21 04:10 Chloride 102.0 mmol/L (98-107) 07/07/21 04:10 Carbon Dioxide 25 mmol/L (22-30) 07/07/21 04:10 Anion Gap 13 mmol/L 07/07/21 04:10 BUN 12 mg/dL (7-17) 07/07/21 04:10 Creatinine 0.6 mg/dL (0.6-1.2) 07/07/21 04:10 Estimated GFR > 60 ml/min 07/07/21 04:10 BUN/Creatinine Ratio 20 % 07/07/21 04:10 Glucose 138 mg/dL (65-100) H 07/07/21 04:10 POC Glucose 141 mg/dL (70-105) H 07/07/21 05:48 Lactic Acid 5.30 mmol/L (0.7-2.0) H* 06/13/21 15:45 Calcium 8.6 mg/dL (8.4-10.2) 07/07/21 04:10 Phosphorus 2.40 mg/dL (2.5-4.5) L 07/07/21 04:10 Magnesium 1.80 mg/dL (1.7-2.3) 07/07/21 04:10 Total Bilirubin 0.40 mg/dL (0.1-1.2) 06/15/21 03:56 AST 64 units/L (5-40) H 06/15/21 03:56 ALT 106 units/L (7-56) H 06/15/21 03:56 Alkaline Phosphatase 55 units/L (35-129) 06/15/21 03:56 Troponin T < 0.010 ng/mL (0.00-0.029) 06/11/21 23:21 C-Reactive Protein 3.30 mg/dL (0.00-1.30) H 06/16/21 04:32 Total Protein 5.1 g/dL (6.3-8.2) L 06/15/21 03:56 Albumin 2.9 g/dL (3.9-5) L 06/15/21 03:56 Albumin/Globulin Ratio 1.3 % 06/15/21 03:56 Triglycerides 254 mg/dL (2-149) H 06/21/21 04:42 Urine Color Yellow (Yellow) 06/12/21 17:00 Urine Turbidity Clear (Clear) 06/12/21 17:00 Urine pH 5.0 (5.0-7.0) 06/12/21 17:00 Ur Specific [place] 1.035 (1.003-1.030) H 06/12/21 17:00 Urine Protein 30 mg/dl mg/dL (Negative) 06/12/21 17:00 Urine Glucose (UA) 50 mg/dL (Negative) 06/12/21 17:00 Urine Ketones Tr mg/dL (Negative) 06/12/21 17:00 Urine Blood Neg (Negative) 06/12/21 17:00 Urine Nitrite Neg (Negative) 06/12/21 17:00 Urine Bilirubin Neg (Negative) 06/12/21 17:00 Urine Urobilinogen < 2.0 mg/dL (<2.0) 06/12/21 17:00 Ur Leukocyte Esterase Neg (Negative) 06/12/21 17:00 Urine WBC (Auto) < 1.0 /HPF (0.0-6.0) 06/12/21 17:00 Urine RBC (Auto) < 1.0 /HPF (0.0-6.0) 06/12/21 17:00 Urine Creatinine 81.1 mg/dL (0.1-20.0) H 06/15/21 10:40 Urine Sodium 42 mmol/L 06/15/21 10:40 Coronavirus (PCR) Negative (Negative) 06/12/21 09:50 Blood Type O POSITIVE 06/24/21 06:40 Antibody Screen Negative 06/24/21 06:40 Crossmatch See Detail 06/24/21 06:40 Lujan/IV: Voiding Method Indwelling Catheter Active Medications - Current Medications Current Medications: Generic Name Dose Route Start Last Admin Trade Name Freq PRN Reason Stop Dose Admin Hydrocodone Bitart/Acetaminophen 1 each 07/04/21 10:00 07/07/21 03:21 Hydrocodone/Acetaminophen 5-325 Mg Tab PO 1 each Q6H PRN Administration Pain, Moderate (4-6) Amlodipine Besylate 5 mg 06/23/21 10:00 07/06/21 10:19 Amlodipine 5 Mg Tab PO 5 mg QDAY JOLENE Administration Lipase/Protease/Amylase 1 each 06/19/21 19:20 Lipase 10,500/Protease 25,000/Amylase 43,750 (Units) Dr Ramón ENAMORADOTUBE PRN PRN For Clogged Feeding Tube Atorvastatin Calcium 20 mg 06/22/21 22:00 07/06/21 21:38 Atorvastatin 20 Mg Tab PO 20 mg QHS JOLENE Administration Enoxaparin Sodium 40 mg 06/30/21 22:00 07/06/21 21:36 Enoxaparin 40 Mg/0.4 Ml Inj SUB-Q 40 mg QDAY@2200 [facility] Administration Protocol Famotidine 20 mg 06/24/21 22:00 07/06/21 21:39 Famotidine 20 Mg Tab FEEDTUBE 20 mg BID JOLENE Administration Hydralazine HCl 100 mg 06/22/21 19:00 07/07/21 06:13 Hydralazine 100 Mg Tab FEEDTUBE 100 mg Q8HR JOLENE Administration Hydrogen Peroxide/Benzyl Alcohol 1 applic 07/02/21 19:35 Hydrogen Peroxide 118 Ml Solution TP ONCE JOLENE Insulin Glargine 30 units 07/04/21 22:00 07/06/21 22:21 Insulin Glargine 100 Units/Ml SUB-Q 30 units QHS [facility] Administration Insulin Human Lispro 0 unit 06/12/21 12:00 07/06/21 23:07 Insulin Lispro 100 Unit/Ml SUB-Q 3 unit Q6HR [facility] Administration Protocol Labetalol HCl 10 mg 06/21/21 18:00 07/05/21 18:52 Labetalol 20 Mg/4 Ml Inj IV 10 mg Q4HR PRN Administration Hypertension Lidocaine 2 each 07/06/21 18:00 07/06/21 18:44 Lidocaine 5% 1 Each Patch TD 2 each QDAY [facility] Administration Melatonin 5 mg 07/05/21 22:00 07/06/21 21:39 Melatonin 5 Mg Tab PO 5 mg QHS [facility] Administration Metoclopramide HCl 10 mg 06/11/21 20:42 Metoclopramide 10 Mg/2 Ml Inj IV Q6H PRN Nausea And Vomiting Ondansetron HCl 4 mg 06/11/21 20:42 Ondansetron 4 Mg/2 Ml Inj IV Q3H PRN Nausea And Vomiting Simple Syrup 15 ml 06/19/21 19:20 Simple Syrup 15 Ml FEEDTUBE PRN PRN Hypoglycemia Simple Syrup 30 ml 06/19/21 19:20 Simple Syrup 15 Ml FEEDTUBE PRN PRN Hypoglycemia Sodium Bicarbonate 325 mg 06/19/21 19:20 Sodium Bicarbonate 325 Mg Tab FEEDTUBE PRN PRN For Clogged Feeding Tube Sodium Chloride 10 ml 06/11/21 22:00 07/06/21 21:39 Sodium Chloride 0.9% 10 Ml Flush Syringe IV 10 ml BID JOLENE Administration Sodium Chloride 10 ml 06/11/21 20:42 Sodium Chloride 0.9% 10 Ml Flush Syringe IV PRN PRN LINE FLUSH Trazodone HCl 100 mg 07/05/21 22:00 07/06/21 21:35 Trazodone 50 Mg Tab PO 100 mg QHS JOLENE Administration Nutrition/Malnutrition Assess - Dietary Evaluation Nutrition/Malnutrition Findings: Nutrition Notes Start: 06/16/21 12:10 Freq: Status: Active Protocol: Document 07/01/21 15:58 CANDIDO (Rec: 07/01/21 16:19 CANDIDO [id number]) Nutrition Notes Initial or Follow up Reassessment Current Diagnosis Diabetes,Sepsis,Hypertension, Respiratory Failure Other Pertinent Diagnosis Jeremiah's Angina, (R) Pneumothorax, Coagulopathy, s/ pCardiac Arrest, Gout... Current Diet TF-Vital AF 1.2 Quan @ 50 ml/hr (since D 06/21). Labs/Tests 07/01: Glu 177. Pertinent Medications 07/01: Insulin, others nutritionally unremarkable. Height 5 ft 8 in Weight 119.9 kg [place] Body Weight (kg) 63.63 BMI 40.1 Weight change and time frame 10.584 Kg body weight gain in 15 days reported Weight Status Morbidly Obese Subjective/Other Information RD consult for routine F/U on TF tolerance. TF continues as prescribed, with no significant events noted. Pt continues on Mechanical Ventilation through Tracheostomy, well tolerated, according to Progress notes. Hypernatremia controlled, flush backed off to 80 ml Q 4 hr. Pt still waiting for transfer to [place] or [facility]. Percent of energy/protein needs met: Prescribed Vital AF 1.2 Quan @ 50 ml/hr provides for energy/ protein needs (1,440 Kcal/90 g ) during LOS; 105% Kcal and 71 % AA. Burn Absent Trauma Absent GI Symptoms Other Difficulty In Swallowing,Chewing Food Allergy No Skin Integrity/Comment Surgical wounds. Current % PO Other Minimum of two criteria No #1 Nutrition Diagnosis Inadequate oral intake Diagnosis Progress(for reassessment Continues documentation) Is patient on ventilator? Yes Is Patient Ambulatory and/or Out of Bed No REE-([facility]-confined to bed) 4706.904 Calculation Used for Recommendations 65-70% energy needs Additional Notes Energy needs: 1280-1379kcal/ day Pro needs 2g/kg IBW: 127g/day Fluid needs 1ml/kcal Nutrition Intervention Nutrition Support: Continue Vital AF 1.2 Quan @ 50 ml/hr. Flush: 80 ml water flush Q 4 hr. Kcal 1,440 Protein (gm) 90 Carbohydrates (gm) 133 Fat (gm) 65 Fluid (mL) 973 Fiber (gm) 6 % RDI: 105% Kcal; 71% AA. Goal #1 Provide at least 75% of energy /protein needs through Enteral Feeding during LOS. Goal #2 Maintain body weight within +/ -3% of admission body weight during LOS. Follow-Up By: 07/08/21 Additional Comments Continue monitoring Mechanical Ventilation, Na/Flush, TF tolerance and BM.
--- NOTE | 2021-07-06 12:20 | Progress Note ---
Assessment and Plan Doing well from airway issues. Lack of movement of extremities is of some concern. Pt /ot for maintenance of rom/ splinting in positions to avoid contractures.Also for swallowing evaluation. Down sizing the trach to an 8 Shiley would not be easy or safe at this time. Would try to find a #10 Pessy instead. will look into ordering this on Thursday. Patient with return to the ICU because of respiratory distress possibly mucous plug appears good now. Continue observation in the ICU swallow eval would be appreciated before the weekend could possibly can begin p.o. intake with liquids and full liquids. Subjective Date of service: 07/06/21 Narrative: pt alert and a little irritated with her set back. She would like to try swallowing. She is swallowing her saliva. She denies any pain with swallowing. She would also like to start talking. Objective Vital Signs - 12hr 07/06/21 07/06/21 07/06/21 00:31 01:00 01:31 Temperature Pulse Rate 89 88 94 H Pulse Rate [ From Monitor] Respiratory 15 22 20 Rate Blood Pressure 126/74 118/69 118/69 O2 Sat by Pulse 97 95 97 Oximetry O2 Sat by Pulse Oximetry [ Assessment] 07/06/21 07/06/21 07/06/21 02:01 02:31 03:00 Temperature Pulse Rate 111 H 88 93 H Pulse Rate [ From Monitor] Respiratory 15 18 23 Rate Blood Pressure 139/67 139/67 132/66 O2 Sat by Pulse 94 96 95 Oximetry O2 Sat by Pulse Oximetry [ Assessment] 07/06/21 07/06/21 07/06/21 03:25 03:31 04:00 Temperature 99.3 F Pulse Rate 100 H 89 Pulse Rate [ 74 From Monitor] Respiratory 18 23 Rate Blood Pressure 132/66 143/87 O2 Sat by Pulse 100 99 Oximetry O2 Sat by Pulse 99 Oximetry [ Assessment] 07/06/21 07/06/21 07/06/21 04:31 05:00 05:31 Temperature Pulse Rate 97 H 91 H 95 H Pulse Rate [ From Monitor] Respiratory 28 H 21 19 Rate Blood Pressure 143/87 143/93 143/93 O2 Sat by Pulse 99 99 100 Oximetry O2 Sat by Pulse Oximetry [ Assessment] 07/06/21 07/06/21 07/06/21 06:00 06:31 07:00 Temperature Pulse Rate 94 H 96 H 90 Pulse Rate [ From Monitor] Respiratory Rate Blood Pressure 134/73 134/73 141/82 O2 Sat by Pulse 99 100 99 Oximetry O2 Sat by Pulse Oximetry [ Assessment] 07/06/21 07/06/21 07/06/21 07:31 08:00 08:31 Temperature 99.4 F Pulse Rate 98 H 124 H 98 H Pulse Rate [ From Monitor] Respiratory Rate Blood Pressure 141/82 123/74 123/74 O2 Sat by Pulse 99 97 99 Oximetry O2 Sat by Pulse 99 Oximetry [ Assessment] 07/06/21 07/06/21 07/06/21 09:01 09:55 10:19 Temperature Pulse Rate 95 H 93 H Pulse Rate [ From Monitor] Respiratory 22 Rate Blood Pressure 130/76 139/78 O2 Sat by Pulse 99 99 Oximetry O2 Sat by Pulse Oximetry [ Assessment] - Labs 07/05/21 04:38 07/06/21 04:39 Diabetes panel 07/06/21 Range/Units 04:39 Sodium 140 (137-145) mmol/L Potassium 3.4 L (3.6-5.0) mmol/L Chloride 105.0 (98-107) mmol/L Carbon Dioxide 24 (22-30) mmol/L BUN 14 (7-17) mg/dL Creatinine 0.6 (0.6-1.2) mg/dL Glucose 180 H (65-100) mg/dL Calcium 8.4 (8.4-10.2) mg/dL Calcium panel 07/06/21 Range/Units 04:39 Calcium 8.4 (8.4-10.2) mg/dL Phosphorus 2.70 D (2.5-4.5) mg/dL Pituitary panel 07/06/21 Range/Units 04:39 Sodium 140 (137-145) mmol/L Potassium 3.4 L (3.6-5.0) mmol/L Chloride 105.0 (98-107) mmol/L Carbon Dioxide 24 (22-30) mmol/L BUN 14 (7-17) mg/dL Creatinine 0.6 (0.6-1.2) mg/dL Glucose 180 H (65-100) mg/dL Calcium 8.4 (8.4-10.2) mg/dL Adrenal panel 07/06/21 Range/Units 04:39 Sodium 140 (137-145) mmol/L Potassium 3.4 L (3.6-5.0) mmol/L Chloride 105.0 (98-107) mmol/L Carbon Dioxide 24 (22-30) mmol/L BUN 14 (7-17) mg/dL Creatinine 0.6 (0.6-1.2) mg/dL Glucose 180 H (65-100) mg/dL Calcium 8.4 (8.4-10.2) mg/dL
--- NOTE | 2021-07-06 14:45 | Progress Note ---
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 07/06/2021 No significant change patient appears to be stable. Has trach on T-tube. Consider downsizing the trach. 07/05/21: Continue ICU/IMCU status. Patient is stable for speech as well as PT/OT. Please reconsult them. [facility] has been denied for LTACH so will attempt to get patient into correction facility. Will speak with surgery about possibly downsizing trach to 8. Speech has no equipment to fit 10. Do not feel comfortable doing it myself or asking RT to change out to smaller trach. 07/04/21: Will keep in ICU/IMCU for now. Treat pain in back with Warren and discontinue Tylenol. Follow up with CM on placement. 07/03/21: Continue current level of care. CM working on placement. 07/02/21: ABG now. Patient did have low grade temp earlier today and still has a white count despite being off steroids. It is trending down. Reviewed ID note and they did mention of persistent consider ct of neck. May need to do this. If done, please scan head as well. Will continue to follow. Spoke with RT about obtaining ABG. 07/01/21: Continue T-piece. Follow up speech recs. Follow up electrolytes. PT/OT. Stable for transfer when bed available 06/30/21: Aggressive replacement of electrolytes. Will repeat chemistry tonight around 8. please call for orders as we would like to keep her K at 4 and Mag at 2. Chemistry in the am. Stable for transfer to telemetry floor. 06/29/21: Speech did see but patient had decreased voice quality and increased wob so aborted. Will ask them to assess again on Thursday. Chest tube out and ordered follow up CXR. Stable for transfer but ok with continuing monitoring in ICU. If bed needed could go to step down. 06/28/21: monitor drainage in ICU for 24 more hours. Can likely come out tomorrow. Continue in ICU for now. Once chest tube out, no objection to transfer. 06/27/21: Will place chest tube to water seal. Instructed staff if any change in respiratory status, place back on suction and obtain CXR. Otherwise will leave off. Continue T-piece as tolerated. Rehab/long term/LTACH appropriate. STable for transfer if and when bed becomes available. 06/26/21: T-piece today. If off the vent, agree with surgery and removal of chest tube as subq emphysema is improving as well. PT has seen suggested LTACH, however if we are able to wean she may need long term/rehab. Prognosis continues to improve. 06/25/21: Continue PSV as tolerated. Hopeful T-piece in the next 24-48 hours. Will drop steroids down further on . Can switch to daily and even change to oral. PT/OT consult, and follow up recs. May need LTACH vs rehab vs both. Continue to follow. 06/24/21: Daily PSV trials. Maybe ready for T-piece sson. Continue to wean steroids to off. IMS changed to 40q12 which is fine. Continue chest tube until off vent. Still on list for [facility] but will discuss with CM about checking into LTACH as patient will need rehab. PT/OT consult. 06/21/21: Continue current level of sedation. Chest tube does not have air leak but there is clear evidence of a PTX on right. Stripped tube at bedside and will repeat CXR in the morning. Hold on weaning sedation for now and hold on PSV trials. May need second chest tube vs vats if PTX worsens or does not resolve. Patient still on list for [facility], hopeful they will have a bed soon. Drop steroids to 40q8 starting Thursday. Monitor renal function, likely will improve. Needs more free water. Prognosis still remains guarded. 06/20/21: Restart some sedation. At least pain and maybe diprovan. Would like to wake patient up at some point and attempt some PSV trials. Labs are off this am. Large bump in white count but no fever, also no diff drawn. Could be error vs steroid related but this is in just 24 hours. Will repeat tomorrow. If spikes a temp neves culture as well. Small bump in Cr but still in normal range. Will watch. Now that peg in place, tube feeds and free water flushes. Still on list for [facility]. Patient has been steroids greater than 7 days so will have to wean. Can drop to 60q8 starting tomorrow. Prognosis still remains guarded. 06/19/21: surgery to attempt trach and peg today. Still will ask to keep on transfer list for [facility] as her other issues still need to be addressed. If able to place peg, can stop clinimix, give free water and start tube feeds. Prognosis remains guarded. pH better with drop in tidal volume. 06/18/21: [facility] has agreed to accept but no ICU beds available at this time. Spoke with Dr. Vasquez yesterday and Dr. Patricia spoke with ENT there. Spoke with RT this am and patient did have a leak when cuff let down and her tidal volumes dropped to below 100. Patient remains on abx and steriods. Will consider lightening sedation tomorrow and seeing how patient does if cuff leak persists. Dropped tidal volumes to 450. Continue PPN for now. 06/17/21: spoke with surgery and they feel transfer is reasonable. I have reached out to [facility] and [facility] has spoken with someone from [facility]. Await to hear back from them. Continue supportive measures and adequate sedation for pain control. No PSV trials as of yet. Blood sugar control, increase lantus. Most likely secondary to steroids. Continue abx therapy. Guarded prognosis. 06/16/21: Renal function improved with fluids. IMS to give more fluids (LR) today which I agree with. FeNa is =0.7. Should be fluid responsive. Continue clinimix. Needs long acting insulin. Agree with lantus. Asked nursing to increase sedation now that we know that patient's mental status is stable. Picc today. Air leak test vs Neck CT on tomorrow. 06/15/21: Hopeful with worsening renal function ( likely from code on yesterday) that sedatives are just lingering from that. Still making good urine but output has fallen off. Will send urine sodium and urine cr to check Fena. Most likely this is prerenal. ordered renal ultrasound as well. Continue abx and steroids. Will start clinimix today. This should help with the free water piece. Will give another liter bolus of LR right now. Keep sedation off for now. Guarded prognosis. 06/14/21: Will discuss with surgery future plans. They have ordered steroids to help with inflammation and abx continue. All others appears stable and no acute evidence of bleeding at this time. Follow up surgery recs if any new ones. Guarded prognosis. 06/13/21: Patient to back to OR today. BLood transfusion. Will send DIC panel and may need to given cryo if over 6 units of PRBC's given. Patient will likely need trach and peg as we need to address nutrition. Chest tube placed, large bore now. Patient now with right sided effusion. Hemothorax???. Will continue to monitor output. Needs picc line as femoral should come out soon. Continue pressors. Continue sedation for pain control and comfort. Guarded prognosis. Surgery comfortable with neck and current situation so they have not request transfer. 1. Placed right femoral central line. pressors can run through this. 2. Repeat chemistry stat given bicarb of 8 and blood sugar of greater than 600. Ordering FSBS now. Earlier bicarb was 25. If accurate will need bicarb drip and vasopressin but not sure as pH on blood gas was normal done around the same time. 3. Coagulopathy is improving. INR down to 4.55 and PTT and pT improving. Will continue to give FFP. Ordered more vitamin K. H/H is stable but patient is oozing from neck and mouth. 4. Vasopressor for blood pressure. Need to keep map 65 and greater 5. Lujan is needed for accurate I/O 6. Surgery called by IMS about current CT situation. They state they will reassess in the am. I have reviewed the images myself. If I can position the patient safely without compromising the airway after adequate sedation, may consider placing chest tube now as INR is better and FFP is hanging. Patient is morbidly obese so shits could move the ET tube so if not safe, will wait until surgery comes in the morning. 7. Would not attempt to pass OG or NG tube given current situation in neck 8. Will discuss with surgery tomorrow but I feel this patient should be transferred to a tertiary care facility with ENT as we do not have that service here. CCT 31 minutes. Subjective Date of service: 07/06/21 Interval history: No significant change. Trach remain in place. On T-tube. Awake and responsive. Objective Vital Signs - 12hr 07/06/21 07/06/21 07/06/21 03:00 03:25 03:31 Temperature Pulse Rate 93 H 100 H Pulse Rate [ From Monitor] Respiratory 23 18 Rate Blood Pressure 132/66 132/66 O2 Sat by Pulse 95 100 Oximetry O2 Sat by Pulse 99 Oximetry [ Assessment] 07/06/21 07/06/21 07/06/21 04:00 04:31 05:00 Temperature 99.3 F Pulse Rate 89 97 H 91 H Pulse Rate [ 74 From Monitor] Respiratory 23 28 H 21 Rate Blood Pressure 143/87 143/87 143/93 O2 Sat by Pulse 99 99 99 Oximetry O2 Sat by Pulse Oximetry [ Assessment] 07/06/21 07/06/21 07/06/21 05:31 06:00 06:31 Temperature Pulse Rate 95 H 94 H 96 H Pulse Rate [ From Monitor] Respiratory 19 Rate Blood Pressure 143/93 134/73 134/73 O2 Sat by Pulse 100 99 100 Oximetry O2 Sat by Pulse Oximetry [ Assessment] 07/06/21 07/06/21 07/06/21 07:00 07:31 08:00 Temperature 99.4 F Pulse Rate 90 98 H 124 H Pulse Rate [ From Monitor] Respiratory Rate Blood Pressure 141/82 141/82 123/74 O2 Sat by Pulse 99 99 97 Oximetry O2 Sat by Pulse 99 Oximetry [ Assessment] 07/06/21 07/06/21 07/06/21 08:31 09:01 09:55 Temperature Pulse Rate 98 H 95 H Pulse Rate [ From Monitor] Respiratory 22 Rate Blood Pressure 123/74 130/76 O2 Sat by Pulse 99 99 99 Oximetry O2 Sat by Pulse Oximetry [ Assessment] 07/06/21 10:19 Temperature Pulse Rate 93 H Pulse Rate [ From Monitor] Respiratory Rate Blood Pressure 139/78 O2 Sat by Pulse Oximetry O2 Sat by Pulse Oximetry [ Assessment] Constitutional: alert, other (on vent trach in place) Eyes: non-icteric ENT: oropharynx moist Neck: other (trach in place) Ascultation: Bilateral: clear Percussion: Bilateral: not dull Cardiovascular: regular rate and rhythm Gastrointestinal: normoactive bowel sounds, soft Integumentary: other (subq emphysema) Extremities: no edema, other (subq emphysema) Neurologic: normal mental status CBC and BMP: 07/05/21 04:38 07/06/21 04:39 ABG, PT/INR, D-dimer: ABG ABG pH 7.448 pH Units (7.350-7.450) 07/04/21 01:44 POC ABG pCO2 25.6 mmHg (32.0-48.0) L 06/13/21 04:31 ABG pCO2 39.5 mm Hg 07/04/21 01:44 POC ABG pO2 138.8 mmHg (83-108) H 06/13/21 04:31 ABG pO2 107.7 mm Hg (80.0-90.0) H 07/04/21 01:44 POC ABG HCO3 21.4 06/13/21 04:31 ABG O2 Saturation 98.0 % (95.0-99.0) 07/04/21 01:44 PT/INR, D-dimer PT 18.3 Sec. (12.2-14.9) H 06/20/21 04:33 INR 1.37 (0.87-1.13) H 06/20/21 04:33 D-Dimer 1244.63 ng/mlDDU (0-234) H 06/13/21 Unknown Abnormal lab findings: Abnormal Labs 06/11/21 06/11/21 06/11/21 15:23 15:23 19:20 WBC 12.0 H RBC Hgb Hct MCV 72 L MCH 21 L RDW 17.5 H Plt Count Lymph % (Auto) 12.9 L Bailey % (Auto) 8.6 H Lymph # (Auto) Bailey # (Auto) 1.0 H Seg Neutrophils % 77.4 H Seg Neuts % (Manual) Lymphocytes % (Manual) Monocytes % (Manual) Seg Neutrophils # 9.3 H Seg Neutrophils # Man Lymphocytes # (Manual) Monocytes # (Manual) PT INR APTT Fibrinogen D-Dimer ABG pH POC ABG pCO2 POC ABG pO2 ABG pO2 ABG HCO3 ABG O2 Saturation ABG Base Excess ABG Hemoglobin ABG Oxyhemoglobin Oxyhemoglobin Sodium Potassium Chloride Carbon Dioxide BUN Creatinine Glucose 144 H POC Glucose Lactic Acid Calcium Phosphorus Magnesium AST ALT Alkaline Phosphatase C-Reactive Protein Total Protein Albumin Triglycerides Ur Specific [place] Urine Creatinine Crossmatch See Detail 06/11/21 06/11/21 06/11/21 19:29 19:29 23:21 WBC 15.8 H RBC Hgb 9.4 L Hct MCV 72 L MCH 22 L RDW 17.4 H Plt Count Lymph % (Auto) 9.2 L Bailey % (Auto) Lymph # (Auto) Bailey # (Auto) Seg Neutrophils % 89.0 H Seg Neuts % (Manual) Lymphocytes % (Manual) Monocytes % (Manual) Seg Neutrophils # 14.0 H Seg Neutrophils # Man Lymphocytes # (Manual) Monocytes # (Manual) PT 72.9 H INR 8.18 H* APTT 71.7 H* Fibrinogen D-Dimer ABG pH POC ABG pCO2 POC ABG pO2 ABG pO2 ABG HCO3 ABG O2 Saturation ABG Base Excess ABG Hemoglobin ABG Oxyhemoglobin Oxyhemoglobin Sodium 149 H D Potassium Chloride 124.3 H Carbon Dioxide 8 L* D BUN Creatinine 0.3 L Glucose 628 H* POC Glucose Lactic Acid Calcium 2.4 L* D Phosphorus Magnesium AST ALT < 5 L Alkaline Phosphatase 19 L C-Reactive Protein Total Protein 1.6 L D Albumin 0.8 L Triglycerides Ur Specific [place] Urine Creatinine Crossmatch 06/11/21 06/11/21 06/11/21 23:21 23:22 23:42 WBC RBC Hgb Hct MCV MCH 27 L RDW 22.2 H Plt Count 131 L Lymph % (Auto) Bailey % (Auto) Lymph # (Auto) Bailey # (Auto) Seg Neutrophils % Seg Neuts % (Manual) Lymphocytes % (Manual) Monocytes % (Manual) Seg Neutrophils # Seg Neutrophils # Man Lymphocytes # (Manual) Monocytes # (Manual) PT 46.3 H INR 4.55 H APTT 54.8 H Fibrinogen D-Dimer ABG pH POC ABG pCO2 POC ABG pO2 325.9 H ABG pO2 ABG HCO3 ABG O2 Saturation ABG Base Excess ABG Hemoglobin 8.0 L ABG Oxyhemoglobin 99.0 H Oxyhemoglobin Sodium Potassium Chloride Carbon Dioxide BUN Creatinine Glucose POC Glucose Lactic Acid Calcium Phosphorus Magnesium AST ALT Alkaline Phosphatase C-Reactive Protein Total Protein Albumin Triglycerides Ur Specific [place] Urine Creatinine Crossmatch 06/12/21 06/12/21 06/12/21 01:45 01:45 01:45 WBC 21.6 H RBC 3.04 L Hgb 6.7 L D Hct 22.4 L D MCV 74 L MCH 22 L RDW 18.9 H Plt Count Lymph % (Auto) Bailey % (Auto) Lymph # (Auto) Bailey # (Auto) Seg Neutrophils % Seg Neuts % (Manual) 76.0 H Lymphocytes % (Manual) 2.0 L Monocytes % (Manual) 8.0 H Seg Neutrophils # Seg Neutrophils # Man 16.4 H Lymphocytes # (Manual) 0.4 L Monocytes # (Manual) 1.7 H PT 25.4 H INR 2.10 H APTT Fibrinogen D-Dimer ABG pH POC ABG pCO2 POC ABG pO2 ABG pO2 ABG HCO3 ABG O2 Saturation ABG Base Excess ABG Hemoglobin ABG Oxyhemoglobin Oxyhemoglobin Sodium Potassium 5.6 H D Chloride Carbon Dioxide 20 L D BUN Creatinine Glucose 368 H POC Glucose Lactic Acid Calcium 7.1 L D Phosphorus Magnesium AST ALT Alkaline Phosphatase C-Reactive Protein Total Protein 5.3 L D Albumin 3.1 L Triglycerides Ur Specific [place] Urine Creatinine Crossmatch 06/12/21 06/12/21 06/12/21 02:05 04:41 11:05 WBC 14.6 H RBC 3.52 L Hgb 8.5 L Hct 27.7 L MCV MCH 24 L RDW 20.9 H Plt Count Lymph % (Auto) Bailey % (Auto) Lymph # (Auto) Bailey # (Auto) Seg Neutrophils % Seg Neuts % (Manual) Lymphocytes % (Manual) Monocytes % (Manual) Seg Neutrophils # Seg Neutrophils # Man Lymphocytes # (Manual) Monocytes # (Manual) PT INR APTT Fibrinogen D-Dimer ABG pH POC ABG pCO2 POC ABG pO2 224.6 H ABG pO2 ABG HCO3 ABG O2 Saturation ABG Base Excess ABG Hemoglobin 7.3 L ABG Oxyhemoglobin 98.7 H Oxyhemoglobin Sodium Potassium Chloride Carbon Dioxide BUN Creatinine Glucose POC Glucose 308 H Lactic Acid Calcium Phosphorus Magnesium AST ALT Alkaline Phosphatase C-Reactive Protein Total Protein Albumin Triglycerides Ur Specific [place] Urine Creatinine Crossmatch 06/12/21 06/12/21 06/12/21 11:05 11:05 12:18 WBC RBC Hgb Hct MCV MCH RDW Plt Count Lymph % (Auto) Bailey % (Auto) Lymph # (Auto) Bailey # (Auto) Seg Neutrophils % Seg Neuts % (Manual) Lymphocytes % (Manual) Monocytes % (Manual) Seg Neutrophils # Seg Neutrophils # Man Lymphocytes # (Manual) Monocytes # (Manual) PT 16.8 H INR 1.23 H APTT Fibrinogen D-Dimer ABG pH POC ABG pCO2 POC ABG pO2 ABG pO2 ABG HCO3 ABG O2 Saturation ABG Base Excess ABG Hemoglobin ABG Oxyhemoglobin Oxyhemoglobin Sodium Potassium Chloride Carbon Dioxide BUN 24 H Creatinine Glucose 324 H POC Glucose 281 H Lactic Acid Calcium 7.5 L Phosphorus Magnesium AST 70 H ALT 57 H Alkaline Phosphatase C-Reactive Protein Total Protein 6.0 L Albumin 3.6 L Triglycerides Ur Specific [place] Urine Creatinine Crossmatch 06/12/21 06/12/21 06/12/21 17:00 17:00 17:00 WBC RBC Hgb 7.5 L Hct 24.0 L MCV MCH RDW Plt Count Lymph % (Auto) Bailey % (Auto) Lymph # (Auto) Bailey # (Auto) Seg Neutrophils % Seg Neuts % (Manual) Lymphocytes % (Manual) Monocytes % (Manual) Seg Neutrophils # Seg Neutrophils # Man Lymphocytes # (Manual) Monocytes # (Manual) PT 16.0 H INR 1.16 H APTT Fibrinogen D-Dimer ABG pH POC ABG pCO2 POC ABG pO2 ABG pO2 ABG HCO3 ABG O2 Saturation ABG Base Excess ABG Hemoglobin ABG Oxyhemoglobin Oxyhemoglobin Sodium Potassium Chloride Carbon Dioxide BUN Creatinine Glucose POC Glucose Lactic Acid Calcium Phosphorus Magnesium AST ALT Alkaline Phosphatase C-Reactive Protein Total Protein Albumin Triglycerides Ur Specific [place] 1.035 H Urine Creatinine Crossmatch 06/12/21 06/12/21 06/12/21 18:06 23:00 23:05 WBC RBC Hgb 7.6 L Hct 23.5 L MCV MCH RDW Plt Count Lymph % (Auto) Bailey % (Auto) Lymph # (Auto) Bailey # (Auto) Seg Neutrophils % Seg Neuts % (Manual) Lymphocytes % (Manual) Monocytes % (Manual) Seg Neutrophils # Seg Neutrophils # Man Lymphocytes # (Manual) Monocytes # (Manual) PT INR APTT Fibrinogen D-Dimer ABG pH POC ABG pCO2 POC ABG pO2 ABG pO2 ABG HCO3 ABG O2 Saturation ABG Base Excess ABG Hemoglobin ABG Oxyhemoglobin Oxyhemoglobin Sodium Potassium Chloride Carbon Dioxide BUN Creatinine Glucose POC Glucose 257 H 300 H Lactic Acid Calcium Phosphorus Magnesium AST ALT Alkaline Phosphatase C-Reactive Protein Total Protein Albumin Triglycerides Ur Specific [place] Urine Creatinine Crossmatch 06/13/21 06/13/21 06/13/21 04:31 05:19 07:30 WBC RBC Hgb 6.8 L Hct 21.7 L MCV MCH RDW Plt Count Lymph % (Auto) Bailey % (Auto) Lymph # (Auto) Bailey # (Auto) Seg Neutrophils % Seg Neuts % (Manual) Lymphocytes % (Manual) Monocytes % (Manual) Seg Neutrophils # Seg Neutrophils # Man Lymphocytes # (Manual) Monocytes # (Manual) PT INR APTT Fibrinogen D-Dimer ABG pH 7.541 H POC ABG pCO2 25.6 L POC ABG pO2 138.8 H ABG pO2 ABG HCO3 ABG O2 Saturation ABG Base Excess ABG Hemoglobin 7.3 L ABG Oxyhemoglobin 98.1 H Oxyhemoglobin Sodium Potassium Chloride Carbon Dioxide BUN Creatinine Glucose POC Glucose 286 H Lactic Acid Calcium Phosphorus Magnesium AST ALT Alkaline Phosphatase C-Reactive Protein Total Protein Albumin Triglycerides Ur Specific [place] Urine Creatinine Crossmatch 06/13/21 06/13/21 06/13/21 07:30 12:04 14:50 WBC RBC Hgb Hct MCV MCH RDW Plt Count Lymph % (Auto) Bailey % (Auto) Lymph # (Auto) Bailey # (Auto) Seg Neutrophils % Seg Neuts % (Manual) Lymphocytes % (Manual) Monocytes % (Manual) Seg Neutrophils # Seg Neutrophils # Man Lymphocytes # (Manual) Monocytes # (Manual) PT INR APTT Fibrinogen D-Dimer ABG pH 7.039 L* 7.182 L* POC ABG pCO2 POC ABG pO2 ABG pO2 63.1 L ABG HCO3 17.4 L ABG O2 Saturation 73.4 L ABG Base Excess -12.6 L -7.1 L ABG Hemoglobin 7.7 L 6.9 L ABG Oxyhemoglobin Oxyhemoglobin 71.8 L 93.5 L Sodium Potassium Chloride 108.9 H Carbon Dioxide BUN 28 H Creatinine Glucose 293 H POC Glucose Lactic Acid Calcium 7.2 L Phosphorus Magnesium AST 106 H ALT 92 H Alkaline Phosphatase C-Reactive Protein Total Protein 5.6 L Albumin 3.3 L Triglycerides Ur Specific [place] Urine Creatinine Crossmatch 06/13/21 06/13/21 06/13/21 14:54 15:45 17:34 WBC RBC Hgb Hct MCV MCH RDW Plt Count Lymph % (Auto) Bailey % (Auto) Lymph # (Auto) Bailey # (Auto) Seg Neutrophils % Seg Neuts % (Manual) Lymphocytes % (Manual) Monocytes % (Manual) Seg Neutrophils # Seg Neutrophils # Man Lymphocytes # (Manual) Monocytes # (Manual) PT INR APTT Fibrinogen D-Dimer ABG pH POC ABG pCO2 POC ABG pO2 ABG pO2 178.4 H ABG HCO3 ABG O2 Saturation 99.1 H ABG Base Excess ABG Hemoglobin 8.0 L ABG Oxyhemoglobin Oxyhemoglobin Sodium Potassium Chloride 107.3 H Carbon Dioxide 19 L BUN 33 H Creatinine 1.5 H Glucose 379 H POC Glucose Lactic Acid 5.30 H* Calcium 6.8 L Phosphorus Magnesium AST ALT Alkaline Phosphatase C-Reactive Protein Total Protein Albumin Triglycerides Ur Specific [place] Urine Creatinine Crossmatch 06/13/21 06/13/21 06/13/21 17:40 23:29 Unknown WBC 22.5 H RBC 3.16 L Hgb 8.0 L Hct 26.0 L MCV MCH 26 L RDW 21.4 H Plt Count Lymph % (Auto) Bailey % (Auto) Lymph # (Auto) Bailey # (Auto) Seg Neutrophils % Seg Neuts % (Manual) 88.0 H Lymphocytes % (Manual) 4.0 L Monocytes % (Manual) Seg Neutrophils # Seg Neutrophils # Man 19.8 H Lymphocytes # (Manual) 0.9 L Monocytes # (Manual) 1.4 H PT INR APTT Fibrinogen D-Dimer ABG pH POC ABG pCO2 POC ABG pO2 ABG pO2 ABG HCO3 ABG O2 Saturation ABG Base Excess ABG Hemoglobin ABG Oxyhemoglobin Oxyhemoglobin Sodium Potassium Chloride Carbon Dioxide BUN Creatinine Glucose POC Glucose 294 H 288 H Lactic Acid Calcium Phosphorus Magnesium AST ALT Alkaline Phosphatase C-Reactive Protein Total Protein Albumin Triglycerides Ur Specific [place] Urine Creatinine Crossmatch 06/13/21 06/14/21 06/14/21 Unknown 05:39 06:15 WBC RBC 2.93 L Hgb 7.2 L Hct 23.2 L MCV MCH 25 L RDW 21.2 H Plt Count Lymph % (Auto) Bailey % (Auto) Lymph # (Auto) Bailey # (Auto) Seg Neutrophils % Seg Neuts % (Manual) Lymphocytes % (Manual) Monocytes % (Manual) Seg Neutrophils # Seg Neutrophils # Man Lymphocytes # (Manual) Monocytes # (Manual) PT 17.6 H INR 1.31 H APTT Fibrinogen 546 H D-Dimer 1244.63 H ABG pH POC ABG pCO2 POC ABG pO2 ABG pO2 ABG HCO3 ABG O2 Saturation ABG Base Excess ABG Hemoglobin ABG Oxyhemoglobin Oxyhemoglobin Sodium Potassium Chloride Carbon Dioxide BUN Creatinine Glucose POC Glucose 246 H Lactic Acid Calcium Phosphorus Magnesium AST ALT Alkaline Phosphatase C-Reactive Protein Total Protein Albumin Triglycerides Ur Specific [place] Urine Creatinine Crossmatch 06/14/21 06/14/21 06/14/21 06:15 06:15 09:13 WBC RBC Hgb Hct MCV MCH RDW Plt Count Lymph % (Auto) Bailey % (Auto) Lymph # (Auto) Bailey # (Auto) Seg Neutrophils % Seg Neuts % (Manual) Lymphocytes % (Manual) Monocytes % (Manual) Seg Neutrophils # Seg Neutrophils # Man Lymphocytes # (Manual) Monocytes # (Manual) PT INR APTT Fibrinogen D-Dimer ABG pH POC ABG pCO2 POC ABG pO2 ABG pO2 183.0 H ABG HCO3 ABG O2 Saturation 99.2 H ABG Base Excess ABG Hemoglobin 6.6 L ABG Oxyhemoglobin Oxyhemoglobin Sodium 147 H Potassium Chloride 112.5 H Carbon Dioxide 21 L BUN 36 H Creatinine 1.4 H Glucose 281 H POC Glucose Lactic Acid Calcium 6.9 L Phosphorus Magnesium AST ALT Alkaline Phosphatase C-Reactive Protein Total Protein Albumin Triglycerides 189 H Ur Specific [place] Urine Creatinine Crossmatch 06/14/21 06/14/21 06/14/21 10:45 12:16 13:30 WBC RBC Hgb 7.1 L Hct 22.3 L MCV MCH RDW Plt Count Lymph % (Auto) Bailey % (Auto) Lymph # (Auto) Bailey # (Auto) Seg Neutrophils % Seg Neuts % (Manual) Lymphocytes % (Manual) Monocytes % (Manual) Seg Neutrophils # Seg Neutrophils # Man Lymphocytes # (Manual) Monocytes # (Manual) PT INR APTT Fibrinogen D-Dimer ABG pH 7.205 L POC ABG pCO2 POC ABG pO2 ABG pO2 261.3 H ABG HCO3 ABG O2 Saturation 99.4 H ABG Base Excess -7.2 L ABG Hemoglobin 7.6 L ABG Oxyhemoglobin Oxyhemoglobin Sodium Potassium Chloride Carbon Dioxide BUN Creatinine Glucose POC Glucose 174 H Lactic Acid Calcium Phosphorus Magnesium AST ALT Alkaline Phosphatase C-Reactive Protein Total Protein Albumin Triglycerides Ur Specific [place] Urine Creatinine Crossmatch 06/14/21 06/14/21 06/15/21 17:40 18:43 00:06 WBC RBC Hgb Hct MCV MCH RDW Plt Count Lymph % (Auto) Bailey % (Auto) Lymph # (Auto) Bailey # (Auto) Seg Neutrophils % Seg Neuts % (Manual) Lymphocytes % (Manual) Monocytes % (Manual) Seg Neutrophils # Seg Neutrophils # Man Lymphocytes # (Manual) Monocytes # (Manual) PT INR APTT Fibrinogen D-Dimer ABG pH 7.292 L POC ABG pCO2 POC ABG pO2 ABG pO2 78.8 L ABG HCO3 ABG O2 Saturation ABG Base Excess -5.0 L ABG Hemoglobin 9.1 L ABG Oxyhemoglobin Oxyhemoglobin 93.7 L Sodium Potassium Chloride Carbon Dioxide BUN Creatinine Glucose POC Glucose 182 H 144 H Lactic Acid Calcium Phosphorus Magnesium AST ALT Alkaline Phosphatase C-Reactive Protein Total Protein Albumin Triglycerides Ur Specific [place] Urine Creatinine Crossmatch 06/15/21 06/15/21 06/15/21 03:55 03:56 10:40 WBC RBC Hgb 8.4 L Hct 25.8 L MCV MCH RDW Plt Count Lymph % (Auto) Bailey % (Auto) Lymph # (Auto) Bailey # (Auto) Seg Neutrophils % Seg Neuts % (Manual) Lymphocytes % (Manual) Monocytes % (Manual) Seg Neutrophils # Seg Neutrophils # Man Lymphocytes # (Manual) Monocytes # (Manual) PT INR APTT Fibrinogen D-Dimer ABG pH POC ABG pCO2 POC ABG pO2 ABG pO2 ABG HCO3 ABG O2 Saturation ABG Base Excess ABG Hemoglobin ABG Oxyhemoglobin Oxyhemoglobin Sodium 147 H Potassium Chloride 112.2 H Carbon Dioxide 21 L BUN 47 H Creatinine 1.9 H Glucose 272 H POC Glucose Lactic Acid Calcium 7.3 L Phosphorus Magnesium AST 64 H ALT 106 H Alkaline Phosphatase C-Reactive Protein Total Protein 5.1 L Albumin 2.9 L Triglycerides Ur Specific [place] Urine Creatinine 81.1 H Crossmatch 06/15/21 06/15/21 06/15/21 11:46 17:16 23:17 WBC RBC Hgb Hct MCV MCH RDW Plt Count Lymph % (Auto) Bailey % (Auto) Lymph # (Auto) Bailey # (Auto) Seg Neutrophils % Seg Neuts % (Manual) Lymphocytes % (Manual) Monocytes % (Manual) Seg Neutrophils # Seg Neutrophils # Man Lymphocytes # (Manual) Monocytes # (Manual) PT INR APTT Fibrinogen D-Dimer ABG pH POC ABG pCO2 POC ABG pO2 ABG pO2 ABG HCO3 ABG O2 Saturation ABG Base Excess ABG Hemoglobin ABG Oxyhemoglobin Oxyhemoglobin Sodium Potassium Chloride Carbon Dioxide BUN Creatinine Glucose POC Glucose 271 H 268 H 264 H Lactic Acid Calcium Phosphorus Magnesium AST ALT Alkaline Phosphatase C-Reactive Protein Total Protein Albumin Triglycerides Ur Specific [place] Urine Creatinine Crossmatch 06/15/21 06/15/21 06/16/21 Unknown Unknown 04:32 WBC RBC 3.21 L 3.16 L Hgb 8.4 L 8.2 L Hct 26.1 L 25.4 L MCV MCH 26 L 26 L RDW 21.3 H 21.2 H Plt Count 105 L 118 L Lymph % (Auto) Bailey % (Auto) Lymph # (Auto) Bailey # (Auto) Seg Neutrophils % Seg Neuts % (Manual) Lymphocytes % (Manual) Monocytes % (Manual) Seg Neutrophils # Seg Neutrophils # Man Lymphocytes # (Manual) Monocytes # (Manual) PT INR APTT Fibrinogen D-Dimer ABG pH 7.465 H POC ABG pCO2 POC ABG pO2 ABG pO2 114.1 H ABG HCO3 ABG O2 Saturation ABG Base Excess ABG Hemoglobin 8.4 L ABG Oxyhemoglobin Oxyhemoglobin Sodium Potassium Chloride Carbon Dioxide BUN Creatinine Glucose POC Glucose Lactic Acid Calcium Phosphorus Magnesium AST ALT Alkaline Phosphatase C-Reactive Protein Total Protein Albumin Triglycerides Ur Specific [place] Urine Creatinine Crossmatch 06/16/21 06/16/21 06/16/21 04:32 04:32 05:08 WBC RBC Hgb Hct MCV MCH RDW Plt Count Lymph % (Auto) [place] % (Auto) Lymph # (Auto) Bailey # (Auto) Seg Neutrophils % Seg Neuts % (Manual) Lymphocytes % (Manual) Monocytes % (Manual) Seg Neutrophils # Seg Neutrophils # Man Lymphocytes # (Manual) Monocytes # (Manual) PT INR APTT Fibrinogen D-Dimer ABG pH POC ABG pCO2 POC ABG pO2 ABG pO2 ABG HCO3 ABG O2 Saturation ABG Base Excess ABG Hemoglobin ABG Oxyhemoglobin Oxyhemoglobin Sodium 148 H Potassium 3.3 L Chloride 115.1 H Carbon Dioxide 21 L BUN 54 H Creatinine 1.6 H Glucose 367 H POC Glucose 356 H Lactic Acid Calcium 7.4 L Phosphorus Magnesium AST ALT Alkaline Phosphatase C-Reactive Protein 3.30 H Total Protein Albumin Triglycerides Ur Specific [place] Urine Creatinine Crossmatch 06/16/21 06/16/21 06/16/21 05:30 11:46 17:03 WBC RBC Hgb Hct MCV MCH RDW Plt Count Lymph % (Auto) [place] % (Auto) Lymph # (Auto) [place] # (Auto) Seg Neutrophils % Seg Neuts % (Manual) Lymphocytes % (Manual) Monocytes % (Manual) Seg Neutrophils # Seg Neutrophils # Man Lymphocytes # (Manual) Monocytes # (Manual) PT INR APTT Fibrinogen D-Dimer ABG pH 7.475 H POC ABG pCO2 POC ABG pO2 ABG pO2 171.8 H ABG HCO3 ABG O2 Saturation 99.1 H ABG Base Excess ABG Hemoglobin 11.7 L ABG Oxyhemoglobin Oxyhemoglobin Sodium Potassium Chloride Carbon Dioxide BUN Creatinine Glucose POC Glucose 309 H 345 H Lactic Acid Calcium Phosphorus Magnesium AST ALT Alkaline Phosphatase C-Reactive Protein Total Protein Albumin Triglycerides Ur Specific [place] Urine Creatinine Crossmatch 06/16/21 06/16/21 06/17/21 20:18 23:22 04:50 WBC RBC Hgb Hct MCV MCH RDW Plt Count Lymph % (Auto) [place] % (Auto) Lymph # (Auto) [place] # (Auto) Seg Neutrophils % Seg Neuts % (Manual) Lymphocytes % (Manual) Monocytes % (Manual) Seg Neutrophils # Seg Neutrophils # Man Lymphocytes # (Manual) Monocytes # (Manual) PT INR APTT Fibrinogen D-Dimer ABG pH 7.479 H POC ABG pCO2 POC ABG pO2 ABG pO2 143.1 H ABG HCO3 ABG O2 Saturation ABG Base Excess ABG Hemoglobin 10.0 L ABG Oxyhemoglobin Oxyhemoglobin Sodium Potassium Chloride Carbon Dioxide BUN Creatinine Glucose POC Glucose 325 H 315 H Lactic Acid Calcium Phosphorus Magnesium AST ALT Alkaline Phosphatase C-Reactive Protein Total Protein Albumin Triglycerides Ur Specific [place] Urine Creatinine Crossmatch 06/17/21 06/17/21 06/17/21 05:18 05:30 05:30 WBC RBC 3.17 L Hgb 8.2 L Hct 25.5 L MCV MCH 26 L RDW 21.2 H Plt Count 128 L Lymph % (Auto) [place] % (Auto) Lymph # (Auto) [place] # (Auto) Seg Neutrophils % Seg Neuts % (Manual) Lymphocytes % (Manual) Monocytes % (Manual) Seg Neutrophils # Seg Neutrophils # Man Lymphocytes # (Manual) Monocytes # (Manual) PT INR APTT Fibrinogen D-Dimer ABG pH POC ABG pCO2 POC ABG pO2 ABG pO2 ABG HCO3 ABG O2 Saturation ABG Base Excess ABG Hemoglobin ABG Oxyhemoglobin Oxyhemoglobin Sodium 148 H Potassium Chloride 113.7 H Carbon Dioxide 20 L BUN 57 H Creatinine 1.4 H Glucose 351 H POC Glucose 324 H Lactic Acid Calcium 8.0 L Phosphorus 2.30 L Magnesium AST ALT Alkaline Phosphatase C-Reactive Protein Total Protein Albumin Triglycerides Ur Specific [place] Urine Creatinine Crossmatch 02/06/17/21 06/17/21 11:49 17:43 21:42 WBC RBC Hgb Hct MCV MCH RDW Plt Count Lymph % (Auto) [place] % (Auto) Lymph # (Auto) [place] # (Auto) Seg Neutrophils % Seg Neuts % (Manual) Lymphocytes % (Manual) Monocytes % (Manual) Seg Neutrophils # Seg Neutrophils # Man Lymphocytes # (Manual) Monocytes # (Manual) PT INR APTT Fibrinogen D-Dimer ABG pH POC ABG pCO2 POC ABG pO2 ABG pO2 ABG HCO3 ABG O2 Saturation ABG Base Excess ABG Hemoglobin ABG Oxyhemoglobin Oxyhemoglobin Sodium Potassium Chloride Carbon Dioxide BUN Creatinine Glucose POC Glucose 305 H 307 H 286 H Lactic Acid Calcium Phosphorus Magnesium AST ALT Alkaline Phosphatase C-Reactive Protein Total Protein Albumin Triglycerides Ur Specific [place] Urine Creatinine Crossmatch 06/17/21 06/18/21 06/18/21 23:59 04:20 04:37 WBC RBC 3.53 L Hgb 9.1 L Hct 28.7 L MCV MCH 26 L RDW 21.3 H Plt Count Lymph % (Auto) [place] % (Auto) Lymph # (Auto) [place] # (Auto) Seg Neutrophils % Seg Neuts % (Manual) Lymphocytes % (Manual) Monocytes % (Manual) Seg Neutrophils # Seg Neutrophils # Man Lymphocytes # (Manual) Monocytes # (Manual) PT INR APTT Fibrinogen D-Dimer ABG pH 7.495 H POC ABG pCO2 POC ABG pO2 ABG pO2 108.3 H ABG HCO3 ABG O2 Saturation ABG Base Excess -2.1 L ABG Hemoglobin 10.0 L ABG Oxyhemoglobin Oxyhemoglobin Sodium Potassium Chloride Carbon Dioxide BUN Creatinine Glucose POC Glucose 264 H Lactic Acid Calcium Phosphorus Magnesium AST ALT Alkaline Phosphatase C-Reactive Protein Total Protein Albumin Triglycerides Ur Specific [place] Urine Creatinine Crossmatch 06/18/21 06/18/21 06/18/21 04:37 05:32 11:21 WBC RBC Hgb Hct MCV MCH RDW Plt Count Lymph % (Auto) [place] % (Auto) Lymph # (Auto) [place] # (Auto) Seg Neutrophils % Seg Neuts % (Manual) Lymphocytes % (Manual) Monocytes % (Manual) Seg Neutrophils # Seg Neutrophils # Man Lymphocytes # (Manual) Monocytes # (Manual) PT INR APTT Fibrinogen D-Dimer ABG pH POC ABG pCO2 POC ABG pO2 ABG pO2 ABG HCO3 ABG O2 Saturation ABG Base Excess ABG Hemoglobin ABG Oxyhemoglobin Oxyhemoglobin Sodium 148 H Potassium Chloride 114.7 H Carbon Dioxide BUN 59 H Creatinine 1.3 H Glucose 329 H POC Glucose 293 H 291 H Lactic Acid Calcium 8.1 L Phosphorus Magnesium AST ALT Alkaline Phosphatase C-Reactive Protein Total Protein Albumin Triglycerides Ur Specific [place] Urine Creatinine Crossmatch 06/18/21 06/18/21 06/19/21 18:21 21:46 00:15 WBC RBC Hgb Hct MCV MCH RDW Plt Count Lymph % (Auto) [place] % (Auto) Lymph # (Auto) [place] # (Auto) Seg Neutrophils % Seg Neuts % (Manual) Lymphocytes % (Manual) Monocytes % (Manual) Seg Neutrophils # Seg Neutrophils # Man Lymphocytes # (Manual) Monocytes # (Manual) PT INR APTT Fibrinogen D-Dimer ABG pH POC ABG pCO2 POC ABG pO2 ABG pO2 ABG HCO3 ABG O2 Saturation ABG Base Excess ABG Hemoglobin ABG Oxyhemoglobin Oxyhemoglobin Sodium Potassium Chloride Carbon Dioxide BUN Creatinine Glucose POC Glucose 239 H 259 H 310 H Lactic Acid Calcium Phosphorus Magnesium AST ALT Alkaline Phosphatase C-Reactive Protein Total Protein Albumin Triglycerides Ur Specific [place] Urine Creatinine Crossmatch 06/19/21 06/19/21 06/19/21 04:00 04:00 04:50 WBC RBC 3.64 L Hgb 9.1 L Hct 29.1 L MCV MCH 25 L RDW 21.5 H Plt Count Lymph % (Auto) [place] % (Auto) Lymph # (Auto) [place] # (Auto) Seg Neutrophils % Seg Neuts % (Manual) Lymphocytes % (Manual) Monocytes % (Manual) Seg Neutrophils # Seg Neutrophils # Man Lymphocytes # (Manual) Monocytes # (Manual) PT INR APTT Fibrinogen D-Dimer ABG pH POC ABG pCO2 POC ABG pO2 ABG pO2 78.9 L ABG HCO3 ABG O2 Saturation ABG Base Excess -3.2 L ABG Hemoglobin 7.6 L ABG Oxyhemoglobin Oxyhemoglobin Sodium 148 H Potassium Chloride 114.9 H Carbon Dioxide 19 L BUN 59 H Creatinine Glucose 345 H POC Glucose Lactic Acid Calcium 8.1 L Phosphorus 4.60 H D Magnesium 2.40 H AST ALT Alkaline Phosphatase C-Reactive Protein Total Protein Albumin Triglycerides Ur Specific [place] Urine Creatinine Crossmatch 06/19/21 06/19/21 06/19/21 06:28 11:11 17:20 WBC RBC Hgb Hct MCV MCH RDW Plt Count Lymph % (Auto) [place] % (Auto) Lymph # (Auto) [place] # (Auto) Seg Neutrophils % Seg Neuts % (Manual) Lymphocytes % (Manual) Monocytes % (Manual) Seg Neutrophils # Seg Neutrophils # Man Lymphocytes # (Manual) Monocytes # (Manual) PT 29.7 H INR 2.57 H APTT Fibrinogen D-Dimer ABG pH POC ABG pCO2 POC ABG pO2 ABG pO2 ABG HCO3 ABG O2 Saturation ABG Base Excess ABG Hemoglobin ABG Oxyhemoglobin Oxyhemoglobin Sodium Potassium Chloride Carbon Dioxide BUN Creatinine Glucose POC Glucose 279 H 275 H Lactic Acid Calcium Phosphorus Magnesium AST ALT Alkaline Phosphatase C-Reactive Protein Total Protein Albumin Triglycerides Ur Specific [place] Urine Creatinine Crossmatch 06/19/21 06/19/21 06/19/21 18:30 19:20 23:27 WBC RBC Hgb 8.0 L Hct 25.0 L MCV MCH RDW Plt Count Lymph % (Auto) [place] % (Auto) Lymph # (Auto) [place] # (Auto) Seg Neutrophils % Seg Neuts % (Manual) Lymphocytes % (Manual) Monocytes % (Manual) Seg Neutrophils # Seg Neutrophils # Man Lymphocytes # (Manual) Monocytes # (Manual) PT INR APTT Fibrinogen D-Dimer ABG pH POC ABG pCO2 POC ABG pO2 ABG pO2 ABG HCO3 ABG O2 Saturation ABG Base Excess ABG Hemoglobin ABG Oxyhemoglobin Oxyhemoglobin Sodium Potassium Chloride Carbon Dioxide BUN Creatinine Glucose POC Glucose 279 H 290 H Lactic Acid Calcium Phosphorus Magnesium AST ALT Alkaline Phosphatase C-Reactive Protein Total Protein Albumin Triglycerides Ur Specific [place] Urine Creatinine Crossmatch 06/20/21 06/20/21 06/20/21 00:00 04:33 04:33 WBC 22.3 H RBC 3.31 L Hgb 7.4 L 8.5 L Hct 22.5 L 26.5 L MCV MCH 26 L RDW 21.5 H Plt Count Lymph % (Auto) [place] % (Auto) Lymph # (Auto) [place] # (Auto) Seg Neutrophils % Seg Neuts % (Manual) Lymphocytes % (Manual) Monocytes % (Manual) Seg Neutrophils # Seg Neutrophils # Man Lymphocytes # (Manual) Monocytes # (Manual) PT INR APTT Fibrinogen D-Dimer ABG pH POC ABG pCO2 POC ABG pO2 ABG pO2 ABG HCO3 ABG O2 Saturation ABG Base Excess ABG Hemoglobin ABG Oxyhemoglobin Oxyhemoglobin Sodium 148 H Potassium Chloride 114.2 H Carbon Dioxide BUN 70 H Creatinine 1.4 H Glucose 313 H POC Glucose Lactic Acid Calcium 8.2 L Phosphorus Magnesium 2.50 H AST ALT Alkaline Phosphatase C-Reactive Protein Total Protein Albumin Triglycerides Ur Specific [place] Urine Creatinine Crossmatch 06/20/21 06/20/21 06/20/21 04:33 05:27 11:21 WBC RBC Hgb Hct MCV MCH RDW Plt Count Lymph % (Auto) [place] % (Auto) Lymph # (Auto) [place] # (Auto) Seg Neutrophils % Seg Neuts % (Manual) Lymphocytes % (Manual) Monocytes % (Manual) Seg Neutrophils # Seg Neutrophils # Man Lymphocytes # (Manual) Monocytes # (Manual) PT 18.3 H INR 1.37 H APTT Fibrinogen D-Dimer ABG pH POC ABG pCO2 POC ABG pO2 ABG pO2 ABG HCO3 ABG O2 Saturation ABG Base Excess ABG Hemoglobin ABG Oxyhemoglobin Oxyhemoglobin Sodium Potassium Chloride Carbon Dioxide BUN Creatinine Glucose POC Glucose 288 H 306 H Lactic Acid Calcium Phosphorus Magnesium AST ALT Alkaline Phosphatase C-Reactive Protein Total Protein Albumin Triglycerides Ur Specific [place] Urine Creatinine Crossmatch 06/20/21 06/20/21 06/20/21 12:23 15:56 18:20 WBC RBC Hgb 8.2 L 8.1 L Hct 25.9 L 25.5 L MCV MCH RDW Plt Count Lymph % (Auto) [place] % (Auto) Lymph # (Auto) [place] # (Auto) Seg Neutrophils % Seg Neuts % (Manual) Lymphocytes % (Manual) Monocytes % (Manual) Seg Neutrophils # Seg Neutrophils # Man Lymphocytes # (Manual) Monocytes # (Manual) PT INR APTT Fibrinogen D-Dimer ABG pH POC ABG pCO2 POC ABG pO2 ABG pO2 ABG HCO3 ABG O2 Saturation ABG Base Excess ABG Hemoglobin ABG Oxyhemoglobin Oxyhemoglobin Sodium Potassium Chloride Carbon Dioxide BUN Creatinine Glucose POC Glucose 293 H Lactic Acid Calcium Phosphorus Magnesium AST ALT Alkaline Phosphatase C-Reactive Protein Total Protein Albumin Triglycerides Ur Specific [place] Urine Creatinine Crossmatch 06/20/21 06/21/21 06/21/21 23:11 04:20 04:42 WBC 15.1 H RBC 2.84 L Hgb 7.3 L Hct 23.1 L MCV MCH 26 L RDW 21.5 H Plt Count Lymph % (Auto) 3.5 L Bailey % (Auto) 11.7 H Lymph # (Auto) 0.5 L Bailey # (Auto) 1.8 H Seg Neutrophils % 84.7 H Seg Neuts % (Manual) Lymphocytes % (Manual) Monocytes % (Manual) Seg Neutrophils # 12.8 H Seg Neutrophils # Man Lymphocytes # (Manual) Monocytes # (Manual) PT INR APTT Fibrinogen D-Dimer ABG pH POC ABG pCO2 POC ABG pO2 ABG pO2 98.5 H ABG HCO3 ABG O2 Saturation ABG Base Excess ABG Hemoglobin 7.2 L ABG Oxyhemoglobin Oxyhemoglobin Sodium Potassium Chloride Carbon Dioxide BUN Creatinine Glucose POC Glucose 206 H Lactic Acid Calcium Phosphorus Magnesium AST ALT Alkaline Phosphatase C-Reactive Protein Total Protein Albumin Triglycerides Ur Specific [place] Urine Creatinine Crossmatch 06/21/21 06/21/21 06/21/21 04:42 05:08 11:06 WBC RBC Hgb Hct MCV MCH RDW Plt Count Lymph % (Auto) [place] % (Auto) Lymph # (Auto) [place] # (Auto) Seg Neutrophils % Seg Neuts % (Manual) Lymphocytes % (Manual) Monocytes % (Manual) Seg Neutrophils # Seg Neutrophils # Man Lymphocytes # (Manual) Monocytes # (Manual) PT INR APTT Fibrinogen D-Dimer ABG pH POC ABG pCO2 POC ABG pO2 ABG pO2 ABG HCO3 ABG O2 Saturation ABG Base Excess ABG Hemoglobin ABG Oxyhemoglobin Oxyhemoglobin Sodium 151 H Potassium Chloride 117.2 H Carbon Dioxide 21 L BUN 75 H Creatinine 1.6 H Glucose 216 H POC Glucose 190 H 204 H Lactic Acid Calcium 7.9 L Phosphorus Magnesium 2.60 H AST ALT Alkaline Phosphatase C-Reactive Protein Total Protein Albumin Triglycerides 254 H Ur Specific [place] Urine Creatinine Crossmatch 06/21/21 06/21/21 06/21/21 14:00 16:42 21:52 WBC RBC Hgb 7.1 L 7.2 L Hct 22.0 L 22.1 L MCV MCH RDW Plt Count Lymph % (Auto) [place] % (Auto) Lymph # (Auto) [place] # (Auto) Seg Neutrophils % Seg Neuts % (Manual) Lymphocytes % (Manual) Monocytes % (Manual) Seg Neutrophils # Seg Neutrophils # Man Lymphocytes # (Manual) Monocytes # (Manual) PT INR APTT Fibrinogen D-Dimer ABG pH POC ABG pCO2 POC ABG pO2 ABG pO2 ABG HCO3 ABG O2 Saturation ABG Base Excess ABG Hemoglobin ABG Oxyhemoglobin Oxyhemoglobin Sodium Potassium Chloride Carbon Dioxide BUN Creatinine Glucose POC Glucose 207 H Lactic Acid Calcium Phosphorus Magnesium AST ALT Alkaline Phosphatase C-Reactive Protein Total Protein Albumin Triglycerides Ur Specific [place] Urine Creatinine Crossmatch 06/21/21 06/22/21 06/22/21 23:29 04:30 04:30 WBC 16.8 H RBC 2.93 L Hgb 7.4 L Hct 23.9 L MCV MCH 25 L RDW 21.8 H Plt Count Lymph % (Auto) [place] % (Auto) Lymph # (Auto) [place] # (Auto) Seg Neutrophils % Seg Neuts % (Manual) Lymphocytes % (Manual) Monocytes % (Manual) Seg Neutrophils # Seg Neutrophils # Man Lymphocytes # (Manual) Monocytes # (Manual) PT INR APTT Fibrinogen D-Dimer ABG pH POC ABG pCO2 POC ABG pO2 ABG pO2 ABG HCO3 ABG O2 Saturation ABG Base Excess ABG Hemoglobin ABG Oxyhemoglobin Oxyhemoglobin Sodium 151 H Potassium Chloride 118.7 H Carbon Dioxide BUN 57 H Creatinine Glucose 238 H POC Glucose 273 H Lactic Acid Calcium 8.0 L Phosphorus Magnesium 2.70 H AST ALT Alkaline Phosphatase C-Reactive Protein Total Protein Albumin Triglycerides Ur Specific [place] Urine Creatinine Crossmatch 06/22/21 06/22/21 06/22/21 05:17 11:31 14:20 WBC RBC Hgb 7.4 L Hct 22.5 L MCV MCH RDW Plt Count Lymph % (Auto) [place] % (Auto) Lymph # (Auto) [place] # (Auto) Seg Neutrophils % Seg Neuts % (Manual) Lymphocytes % (Manual) Monocytes % (Manual) Seg Neutrophils # Seg Neutrophils # Man Lymphocytes # (Manual) Monocytes # (Manual) PT INR APTT Fibrinogen D-Dimer ABG pH POC ABG pCO2 POC ABG pO2 ABG pO2 ABG HCO3 ABG O2 Saturation ABG Base Excess ABG Hemoglobin ABG Oxyhemoglobin Oxyhemoglobin Sodium Potassium Chloride Carbon Dioxide BUN Creatinine Glucose POC Glucose 214 H 214 H Lactic Acid Calcium Phosphorus Magnesium AST ALT Alkaline Phosphatase C-Reactive Protein Total Protein Albumin Triglycerides Ur Specific [place] Urine Creatinine Crossmatch 06/22/21 06/22/21 06/23/21 17:18 23:47 05:33 WBC RBC Hgb Hct MCV MCH RDW Plt Count Lymph % (Auto) [place] % (Auto) Lymph # (Auto) [place] # (Auto) Seg Neutrophils % Seg Neuts % (Manual) Lymphocytes % (Manual) Monocytes % (Manual) Seg Neutrophils # Seg Neutrophils # Man Lymphocytes # (Manual) Monocytes # (Manual) PT INR APTT Fibrinogen D-Dimer ABG pH POC ABG pCO2 POC ABG pO2 ABG pO2 ABG HCO3 ABG O2 Saturation ABG Base Excess ABG Hemoglobin ABG Oxyhemoglobin Oxyhemoglobin Sodium Potassium Chloride Carbon Dioxide BUN Creatinine Glucose POC Glucose 238 H 227 H 202 H Lactic Acid Calcium Phosphorus Magnesium AST ALT Alkaline Phosphatase C-Reactive Protein Total Protein Albumin Triglycerides Ur Specific [place] Urine Creatinine Crossmatch 06/23/21 06/23/21 06/23/21 10:04 10:04 11:06 WBC 20.3 H RBC 2.71 L Hgb 7.3 L Hct 21.8 L MCV MCH 27 L RDW 22.1 H Plt Count Lymph % (Auto) [place] % (Auto) Lymph # (Auto) [place] # (Auto) Seg Neutrophils % Seg Neuts % (Manual) Lymphocytes % (Manual) Monocytes % (Manual) Seg Neutrophils # Seg Neutrophils # Man Lymphocytes # (Manual) Monocytes # (Manual) PT INR APTT Fibrinogen D-Dimer ABG pH POC ABG pCO2 POC ABG pO2 ABG pO2 ABG HCO3 ABG O2 Saturation ABG Base Excess ABG Hemoglobin ABG Oxyhemoglobin Oxyhemoglobin Sodium 151 H Potassium 3.2 L Chloride 116.9 H Carbon Dioxide BUN 40 H Creatinine Glucose 208 H POC Glucose 204 H Lactic Acid Calcium 8.0 L Phosphorus 1.80 L D Magnesium AST ALT Alkaline Phosphatase C-Reactive Protein Total Protein Albumin Triglycerides Ur Specific [place] Urine Creatinine Crossmatch 06/23/21 06/23/21 06/24/21 16:11 23:47 04:00 WBC 16.9 H RBC 2.49 L Hgb 6.6 L Hct 20.3 L MCV MCH 26 L RDW 22.6 H Plt Count Lymph % (Auto) [place] % (Auto) Lymph # (Auto) [place] # (Auto) Seg Neutrophils % Seg Neuts % (Manual) Lymphocytes % (Manual) Monocytes % (Manual) Seg Neutrophils # Seg Neutrophils # Man Lymphocytes # (Manual) Monocytes # (Manual) PT INR APTT Fibrinogen D-Dimer ABG pH POC ABG pCO2 POC ABG pO2 ABG pO2 ABG HCO3 ABG O2 Saturation ABG Base Excess ABG Hemoglobin ABG Oxyhemoglobin Oxyhemoglobin Sodium Potassium Chloride Carbon Dioxide BUN Creatinine Glucose POC Glucose 228 H 189 H Lactic Acid Calcium Phosphorus Magnesium AST ALT Alkaline Phosphatase C-Reactive Protein Total Protein Albumin Triglycerides Ur Specific [place] Urine Creatinine Crossmatch 06/24/21 06/24/21 06/24/21 04:00 05:43 06:40 WBC RBC Hgb Hct MCV MCH RDW Plt Count Lymph % (Auto) [place] % (Auto) Lymph # (Auto) [place] # (Auto) Seg Neutrophils % Seg Neuts % (Manual) Lymphocytes % (Manual) Monocytes % (Manual) Seg Neutrophils # Seg Neutrophils # Man Lymphocytes # (Manual) Monocytes # (Manual) PT INR APTT Fibrinogen D-Dimer ABG pH POC ABG pCO2 POC ABG pO2 ABG pO2 ABG HCO3 ABG O2 Saturation ABG Base Excess ABG Hemoglobin ABG Oxyhemoglobin Oxyhemoglobin Sodium 148 H Potassium 3.2 L Chloride 115.6 H Carbon Dioxide BUN 35 H Creatinine Glucose 153 H POC Glucose 134 H Lactic Acid Calcium 7.9 L Phosphorus 2.40 L D Magnesium AST ALT Alkaline Phosphatase C-Reactive Protein Total Protein Albumin Triglycerides Ur Specific [place] Urine Creatinine Crossmatch See Detail 06/24/21 06/24/21 06/24/21 11:08 16:47 21:49 WBC RBC Hgb Hct MCV MCH RDW Plt Count Lymph % (Auto) [place] % (Auto) Lymph # (Auto) [place] # (Auto) Seg Neutrophils % Seg Neuts % (Manual) Lymphocytes % (Manual) Monocytes % (Manual) Seg Neutrophils # Seg Neutrophils # Man Lymphocytes # (Manual) Monocytes # (Manual) PT INR APTT Fibrinogen D-Dimer ABG pH POC ABG pCO2 POC ABG pO2 ABG pO2 ABG HCO3 ABG O2 Saturation ABG Base Excess ABG Hemoglobin ABG Oxyhemoglobin Oxyhemoglobin Sodium Potassium Chloride Carbon Dioxide BUN Creatinine Glucose POC Glucose 153 H 201 H 132 H Lactic Acid Calcium Phosphorus Magnesium AST ALT Alkaline Phosphatase C-Reactive Protein Total Protein Albumin Triglycerides Ur Specific [place] Urine Creatinine Crossmatch 06/24/21 06/25/21 06/25/21 23:24 05:30 09:00 WBC RBC Hgb 8.3 L Hct 27.0 L MCV MCH RDW Plt Count Lymph % (Auto) [place] % (Auto) Lymph # (Auto) [place] # (Auto) Seg Neutrophils % Seg Neuts % (Manual) Lymphocytes % (Manual) Monocytes % (Manual) Seg Neutrophils # Seg Neutrophils # Man Lymphocytes # (Manual) Monocytes # (Manual) PT INR APTT Fibrinogen D-Dimer ABG pH POC ABG pCO2 POC ABG pO2 ABG pO2 ABG HCO3 ABG O2 Saturation ABG Base Excess ABG Hemoglobin ABG Oxyhemoglobin Oxyhemoglobin Sodium Potassium Chloride Carbon Dioxide BUN Creatinine Glucose POC Glucose 170 H 151 H Lactic Acid Calcium Phosphorus Magnesium AST ALT Alkaline Phosphatase C-Reactive Protein Total Protein Albumin Triglycerides Ur Specific [place] Urine Creatinine Crossmatch 06/25/21 06/25/21 06/25/21 11:29 14:24 16:48 WBC RBC Hgb 8.5 L Hct 27.5 L MCV MCH RDW Plt Count Lymph % (Auto) [place] % (Auto) Lymph # (Auto) Bailey # (Auto) Seg Neutrophils % Seg Neuts % (Manual) Lymphocytes % (Manual) Monocytes % (Manual) Seg Neutrophils # Seg Neutrophils # Man Lymphocytes # (Manual) Monocytes # (Manual) PT INR APTT Fibrinogen D-Dimer ABG pH POC ABG pCO2 POC ABG pO2 ABG pO2 ABG HCO3 ABG O2 Saturation ABG Base Excess ABG Hemoglobin ABG Oxyhemoglobin Oxyhemoglobin Sodium Potassium Chloride Carbon Dioxide BUN Creatinine Glucose POC Glucose 189 H 224 H Lactic Acid Calcium Phosphorus Magnesium AST ALT Alkaline Phosphatase C-Reactive Protein Total Protein Albumin Triglycerides Ur Specific [place] Urine Creatinine Crossmatch 06/25/21 06/25/21 06/25/21 23:39 Unknown Unknown WBC 16.5 H RBC 2.90 L Hgb 8.0 L Hct 23.8 L MCV MCH RDW 22.8 H Plt Count Lymph % (Auto) [place] % (Auto) Lymph # (Auto) [place] # (Auto) Seg Neutrophils % Seg Neuts % (Manual) Lymphocytes % (Manual) Monocytes % (Manual) Seg Neutrophils # Seg Neutrophils # Man Lymphocytes # (Manual) Monocytes # (Manual) PT INR APTT Fibrinogen D-Dimer ABG pH POC ABG pCO2 POC ABG pO2 ABG pO2 ABG HCO3 ABG O2 Saturation ABG Base Excess ABG Hemoglobin ABG Oxyhemoglobin Oxyhemoglobin Sodium 149 H Potassium Chloride 115.6 H Carbon Dioxide BUN 28 H Creatinine Glucose 157 H POC Glucose 187 H Lactic Acid Calcium 8.0 L Phosphorus Magnesium AST ALT Alkaline Phosphatase C-Reactive Protein Total Protein Albumin Triglycerides Ur Specific [place] Urine Creatinine Crossmatch 06/26/21 06/26/21 06/26/21 05:22 05:29 05:29 WBC 16.2 H RBC 3.03 L Hgb 8.0 L Hct 25.1 L MCV MCH 26 L RDW 23.2 H Plt Count Lymph % (Auto) [place] % (Auto) Lymph # (Auto) [place] # (Auto) Seg Neutrophils % Seg Neuts % (Manual) Lymphocytes % (Manual) Monocytes % (Manual) Seg Neutrophils # Seg Neutrophils # Man Lymphocytes # (Manual) Monocytes # (Manual) PT INR APTT Fibrinogen D-Dimer ABG pH POC ABG pCO2 POC ABG pO2 ABG pO2 ABG HCO3 ABG O2 Saturation ABG Base Excess ABG Hemoglobin ABG Oxyhemoglobin Oxyhemoglobin Sodium 150 H Potassium Chloride 114.8 H Carbon Dioxide BUN 29 H Creatinine Glucose 229 H POC Glucose 211 H Lactic Acid Calcium 8.2 L Phosphorus Magnesium AST ALT Alkaline Phosphatase C-Reactive Protein Total Protein Albumin Triglycerides Ur Specific [place] Urine Creatinine Crossmatch 06/26/21 06/26/21 06/26/21 11:05 15:59 22:00 WBC RBC Hgb Hct MCV MCH RDW Plt Count Lymph % (Auto) [place] % (Auto) Lymph # (Auto) [place] # (Auto) Seg Neutrophils % Seg Neuts % (Manual) Lymphocytes % (Manual) Monocytes % (Manual) Seg Neutrophils # Seg Neutrophils # Man Lymphocytes # (Manual) Monocytes # (Manual) PT INR APTT Fibrinogen D-Dimer ABG pH POC ABG pCO2 POC ABG pO2 ABG pO2 ABG HCO3 ABG O2 Saturation ABG Base Excess ABG Hemoglobin ABG Oxyhemoglobin Oxyhemoglobin Sodium Potassium Chloride Carbon Dioxide BUN Creatinine Glucose POC Glucose 213 H 222 H 161 H Lactic Acid Calcium Phosphorus Magnesium AST ALT Alkaline Phosphatase C-Reactive Protein Total Protein Albumin Triglycerides Ur Specific [place] Urine Creatinine Crossmatch 06/26/21 06/27/21 06/27/21 23:24 04:15 04:15 WBC 14.3 H RBC 2.96 L Hgb 8.1 L Hct 24.6 L MCV MCH 27 L RDW 23.0 H Plt Count Lymph % (Auto) Bailey % (Auto) Lymph # (Auto) Bailey # (Auto) Seg Neutrophils % Seg Neuts % (Manual) Lymphocytes % (Manual) Monocytes % (Manual) Seg Neutrophils # Seg Neutrophils # Man Lymphocytes # (Manual) Monocytes # (Manual) PT INR APTT Fibrinogen D-Dimer ABG pH POC ABG pCO2 POC ABG pO2 ABG pO2 ABG HCO3 ABG O2 Saturation ABG Base Excess ABG Hemoglobin ABG Oxyhemoglobin Oxyhemoglobin Sodium 150 H Potassium Chloride 113.8 H Carbon Dioxide BUN 26 H Creatinine Glucose 246 H POC Glucose 164 H Lactic Acid Calcium 7.8 L Phosphorus Magnesium AST ALT Alkaline Phosphatase C-Reactive Protein Total Protein Albumin Triglycerides Ur Specific [place] Urine Creatinine Crossmatch 06/27/21 06/27/21 06/27/21 05:44 11:07 16:06 WBC RBC Hgb Hct MCV MCH RDW Plt Count Lymph % (Auto) Bailey % (Auto) Lymph # (Auto) Bailey # (Auto) Seg Neutrophils % Seg Neuts % (Manual) Lymphocytes % (Manual) Monocytes % (Manual) Seg Neutrophils # Seg Neutrophils # Man Lymphocytes # (Manual) Monocytes # (Manual) PT INR APTT Fibrinogen D-Dimer ABG pH POC ABG pCO2 POC ABG pO2 ABG pO2 ABG HCO3 ABG O2 Saturation ABG Base Excess ABG Hemoglobin ABG Oxyhemoglobin Oxyhemoglobin Sodium Potassium Chloride Carbon Dioxide BUN Creatinine Glucose POC Glucose 226 H 204 H 224 H Lactic Acid Calcium Phosphorus Magnesium AST ALT Alkaline Phosphatase C-Reactive Protein Total Protein Albumin Triglycerides Ur Specific [place] Urine Creatinine Crossmatch 06/27/21 06/28/21 06/28/21 23:49 04:00 04:00 WBC 15.4 H RBC 3.05 L Hgb 8.2 L Hct 25.0 L MCV MCH 27 L RDW 22.6 H Plt Count Lymph % (Auto) Bailey % (Auto) Lymph # (Auto) Bailey # (Auto) Seg Neutrophils % Seg Neuts % (Manual) Lymphocytes % (Manual) Monocytes % (Manual) Seg Neutrophils # Seg Neutrophils # Man Lymphocytes # (Manual) Monocytes # (Manual) PT INR APTT Fibrinogen D-Dimer ABG pH POC ABG pCO2 POC ABG pO2 ABG pO2 ABG HCO3 ABG O2 Saturation ABG Base Excess ABG Hemoglobin ABG Oxyhemoglobin Oxyhemoglobin Sodium 152 H Potassium 3.0 L Chloride 114.9 H Carbon Dioxide BUN 24 H Creatinine Glucose 158 H POC Glucose 195 H Lactic Acid Calcium 8.1 L Phosphorus Magnesium AST ALT Alkaline Phosphatase C-Reactive Protein Total Protein Albumin Triglycerides Ur Specific [place] Urine Creatinine Crossmatch 06/28/21 06/28/21 06/28/21 05:05 11:47 17:21 WBC RBC Hgb Hct MCV MCH RDW Plt Count Lymph % (Auto) Bailey % (Auto) Lymph # (Auto) Bailey # (Auto) Seg Neutrophils % Seg Neuts % (Manual) Lymphocytes % (Manual) Monocytes % (Manual) Seg Neutrophils # Seg Neutrophils # Man Lymphocytes # (Manual) Monocytes # (Manual) PT INR APTT Fibrinogen D-Dimer ABG pH POC ABG pCO2 POC ABG pO2 ABG pO2 ABG HCO3 ABG O2 Saturation ABG Base Excess ABG Hemoglobin ABG Oxyhemoglobin Oxyhemoglobin Sodium Potassium Chloride Carbon Dioxide BUN Creatinine Glucose POC Glucose 121 H 164 H 166 H Lactic Acid Calcium Phosphorus Magnesium AST ALT Alkaline Phosphatase C-Reactive Protein Total Protein Albumin Triglycerides Ur Specific [place] Urine Creatinine Crossmatch 06/28/21 06/28/21 06/29/21 18:14 21:54 00:55 WBC RBC Hgb Hct MCV MCH RDW Plt Count Lymph % (Auto) Bailey % (Auto) Lymph # (Auto) Bailey # (Auto) Seg Neutrophils % Seg Neuts % (Manual) Lymphocytes % (Manual) Monocytes % (Manual) Seg Neutrophils # Seg Neutrophils # Man Lymphocytes # (Manual) Monocytes # (Manual) PT INR APTT Fibrinogen D-Dimer ABG pH POC ABG pCO2 POC ABG pO2 ABG pO2 ABG HCO3 ABG O2 Saturation ABG Base Excess ABG Hemoglobin ABG Oxyhemoglobin Oxyhemoglobin Sodium Potassium Chloride Carbon Dioxide BUN Creatinine Glucose POC Glucose 150 H 148 H 176 H Lactic Acid Calcium Phosphorus Magnesium AST ALT Alkaline Phosphatase C-Reactive Protein Total Protein Albumin Triglycerides Ur Specific [place] Urine Creatinine Crossmatch 06/29/21 06/29/21 06/29/21 04:00 04:00 05:20 WBC 15.3 H RBC 3.04 L Hgb 8.0 L Hct 25.0 L MCV MCH 26 L RDW 22.3 H Plt Count Lymph % (Auto) Bailey % (Auto) Lymph # (Auto) Bailey # (Auto) Seg Neutrophils % Seg Neuts % (Manual) Lymphocytes % (Manual) Monocytes % (Manual) Seg Neutrophils # Seg Neutrophils # Man Lymphocytes # (Manual) Monocytes # (Manual) PT INR APTT Fibrinogen D-Dimer ABG pH POC ABG pCO2 POC ABG pO2 ABG pO2 ABG HCO3 ABG O2 Saturation ABG Base Excess ABG Hemoglobin ABG Oxyhemoglobin Oxyhemoglobin Sodium Potassium 3.1 L Chloride 108.7 H Carbon Dioxide BUN 20 H Creatinine Glucose 194 H POC Glucose 185 H Lactic Acid Calcium 8.0 L Phosphorus Magnesium AST ALT Alkaline Phosphatase C-Reactive Protein Total Protein Albumin Triglycerides Ur Specific [place] Urine Creatinine Crossmatch 06/29/21 06/29/21 06/30/21 12:18 17:20 00:49 WBC RBC Hgb Hct MCV MCH RDW Plt Count Lymph % (Auto) Bailey % (Auto) Lymph # (Auto) Bailey # (Auto) Seg Neutrophils % Seg Neuts % (Manual) Lymphocytes % (Manual) Monocytes % (Manual) Seg Neutrophils # Seg Neutrophils # Man Lymphocytes # (Manual) Monocytes # (Manual) PT INR APTT Fibrinogen D-Dimer ABG pH POC ABG pCO2 POC ABG pO2 ABG pO2 ABG HCO3 ABG O2 Saturation ABG Base Excess ABG Hemoglobin ABG Oxyhemoglobin Oxyhemoglobin Sodium Potassium Chloride Carbon Dioxide BUN Creatinine Glucose POC Glucose 135 H 185 H 156 H Lactic Acid Calcium Phosphorus Magnesium AST ALT Alkaline Phosphatase C-Reactive Protein Total Protein Albumin Triglycerides Ur Specific [place] Urine Creatinine Crossmatch 06/30/21 06/30/21 06/30/21 04:25 04:25 08:14 WBC 13.0 H RBC 3.19 L Hgb 8.2 L Hct 26.2 L MCV MCH 26 L RDW 22.3 H Plt Count Lymph % (Auto) Bailey % (Auto) Lymph # (Auto) Bailey # (Auto) Seg Neutrophils % Seg Neuts % (Manual) 81.0 H Lymphocytes % (Manual) 10.0 L Monocytes % (Manual) 8.0 H Seg Neutrophils # Seg Neutrophils # Man 10.5 H Lymphocytes # (Manual) Monocytes # (Manual) 1.0 H PT INR APTT Fibrinogen D-Dimer ABG pH POC ABG pCO2 POC ABG pO2 ABG pO2 ABG HCO3 ABG O2 Saturation ABG Base Excess ABG Hemoglobin ABG Oxyhemoglobin Oxyhemoglobin Sodium Potassium 3.0 L Chloride Carbon Dioxide BUN 20 H Creatinine Glucose 104 H POC Glucose 119 H Lactic Acid Calcium 8.3 L Phosphorus Magnesium AST ALT Alkaline Phosphatase C-Reactive Protein Total Protein Albumin Triglycerides Ur Specific [place] Urine Creatinine Crossmatch 06/30/21 06/30/21 06/30/21 11:36 16:24 22:44 WBC RBC Hgb Hct MCV MCH RDW Plt Count Lymph % (Auto) [place] % (Auto) Lymph # (Auto) [place] # (Auto) Seg Neutrophils % Seg Neuts % (Manual) Lymphocytes % (Manual) Monocytes % (Manual) Seg Neutrophils # Seg Neutrophils # Man Lymphocytes # (Manual) Monocytes # (Manual) PT INR APTT Fibrinogen D-Dimer ABG pH POC ABG pCO2 POC ABG pO2 ABG pO2 ABG HCO3 ABG O2 Saturation ABG Base Excess ABG Hemoglobin ABG Oxyhemoglobin Oxyhemoglobin Sodium Potassium Chloride Carbon Dioxide BUN Creatinine Glucose POC Glucose 154 H 208 H 174 H Lactic Acid Calcium Phosphorus Magnesium AST ALT Alkaline Phosphatase C-Reactive Protein Total Protein Albumin Triglycerides Ur Specific [place] Urine Creatinine Crossmatch 07/01/21 07/01/21 07/01/21 05:29 05:29 05:54 WBC 11.9 H RBC 3.00 L Hgb 8.1 L Hct 24.4 L MCV MCH 27 L RDW 21.7 H Plt Count Lymph % (Auto) [place] % (Auto) Lymph # (Auto) [place] # (Auto) Seg Neutrophils % Seg Neuts % (Manual) Lymphocytes % (Manual) Monocytes % (Manual) Seg Neutrophils # Seg Neutrophils # Man Lymphocytes # (Manual) Monocytes # (Manual) PT INR APTT Fibrinogen D-Dimer ABG pH POC ABG pCO2 POC ABG pO2 ABG pO2 ABG HCO3 ABG O2 Saturation ABG Base Excess ABG Hemoglobin ABG Oxyhemoglobin Oxyhemoglobin Sodium Potassium Chloride Carbon Dioxide BUN Creatinine Glucose 177 H POC Glucose 170 H Lactic Acid Calcium Phosphorus Magnesium AST ALT Alkaline Phosphatase C-Reactive Protein Total Protein Albumin Triglycerides Ur Specific [place] Urine Creatinine Crossmatch 07/01/21 07/02/21 07/02/21 10:54 05:05 10:18 WBC RBC Hgb Hct MCV MCH RDW Plt Count Lymph % (Auto) [place] % (Auto) Lymph # (Auto) [place] # (Auto) Seg Neutrophils % Seg Neuts % (Manual) Lymphocytes % (Manual) Monocytes % (Manual) Seg Neutrophils # Seg Neutrophils # Man Lymphocytes # (Manual) Monocytes # (Manual) PT INR APTT Fibrinogen D-Dimer ABG pH 7.488 H POC ABG pCO2 POC ABG pO2 ABG pO2 97.2 H ABG HCO3 27.1 H ABG O2 Saturation ABG Base Excess 3.5 H ABG Hemoglobin 7.9 L ABG Oxyhemoglobin Oxyhemoglobin Sodium Potassium Chloride Carbon Dioxide BUN Creatinine Glucose POC Glucose 184 H 182 H Lactic Acid Calcium Phosphorus Magnesium AST ALT Alkaline Phosphatase C-Reactive Protein Total Protein Albumin Triglycerides Ur Specific [place] Urine Creatinine Crossmatch 07/02/21 07/02/21 07/02/21 12:14 16:18 22:27 WBC RBC Hgb Hct MCV MCH RDW Plt Count Lymph % (Auto) [place] % (Auto) Lymph # (Auto) [place] # (Auto) Seg Neutrophils % Seg Neuts % (Manual) Lymphocytes % (Manual) Monocytes % (Manual) Seg Neutrophils # Seg Neutrophils # Man Lymphocytes # (Manual) Monocytes # (Manual) PT INR APTT Fibrinogen D-Dimer ABG pH 7.199 L* POC ABG pCO2 POC ABG pO2 ABG pO2 104.5 H ABG HCO3 30.3 H ABG O2 Saturation ABG Base Excess ABG Hemoglobin 9.8 L ABG Oxyhemoglobin Oxyhemoglobin 94.6 L Sodium Potassium Chloride Carbon Dioxide BUN Creatinine Glucose POC Glucose 184 H 194 H Lactic Acid Calcium Phosphorus Magnesium AST ALT Alkaline Phosphatase C-Reactive Protein Total Protein Albumin Triglycerides Ur Specific [place] Urine Creatinine Crossmatch 07/03/21 07/03/21 07/03/21 09:47 10:44 11:24 WBC RBC 3.01 L Hgb 8.3 L Hct 24.3 L MCV MCH RDW 21.7 H Plt Count Lymph % (Auto) 8.4 L [place] % (Auto) Lymph # (Auto) 0.8 L Bailey # (Auto) Seg Neutrophils % 80.6 H Seg Neuts % (Manual) Lymphocytes % (Manual) Monocytes % (Manual) Seg Neutrophils # Seg Neutrophils # Man Lymphocytes # (Manual) Monocytes # (Manual) PT INR APTT Fibrinogen D-Dimer ABG pH POC ABG pCO2 POC ABG pO2 ABG pO2 ABG HCO3 ABG O2 Saturation ABG Base Excess ABG Hemoglobin ABG Oxyhemoglobin Oxyhemoglobin Sodium Potassium 3.0 L Chloride Carbon Dioxide BUN Creatinine Glucose 200 H POC Glucose 180 H Lactic Acid Calcium 8.3 L Phosphorus Magnesium AST ALT Alkaline Phosphatase C-Reactive Protein Total Protein Albumin Triglycerides Ur Specific [place] Urine Creatinine Crossmatch 07/03/21 07/03/21 07/03/21 16:34 22:14 22:15 WBC RBC Hgb Hct MCV MCH RDW Plt Count Lymph % (Auto) [place] % (Auto) Lymph # (Auto) [place] # (Auto) Seg Neutrophils % Seg Neuts % (Manual) Lymphocytes % (Manual) Monocytes % (Manual) Seg Neutrophils # Seg Neutrophils # Man Lymphocytes # (Manual) Monocytes # (Manual) PT INR APTT Fibrinogen D-Dimer ABG pH POC ABG pCO2 POC ABG pO2 ABG pO2 ABG HCO3 ABG O2 Saturation ABG Base Excess ABG Hemoglobin ABG Oxyhemoglobin Oxyhemoglobin Sodium Potassium Chloride Carbon Dioxide BUN Creatinine Glucose POC Glucose 165 H 174 H 180 H Lactic Acid Calcium Phosphorus Magnesium AST ALT Alkaline Phosphatase C-Reactive Protein Total Protein Albumin Triglycerides Ur Specific [place] Urine Creatinine Crossmatch 07/04/21 07/04/21 07/04/21 00:28 01:44 05:07 WBC RBC Hgb Hct MCV MCH RDW Plt Count Lymph % (Auto) [place] % (Auto) Lymph # (Auto) Bailey # (Auto) Seg Neutrophils % Seg Neuts % (Manual) Lymphocytes % (Manual) Monocytes % (Manual) Seg Neutrophils # Seg Neutrophils # Man Lymphocytes # (Manual) Monocytes # (Manual) PT INR APTT Fibrinogen D-Dimer ABG pH POC ABG pCO2 POC ABG pO2 ABG pO2 107.7 H ABG HCO3 26.7 H ABG O2 Saturation ABG Base Excess ABG Hemoglobin 7.5 L ABG Oxyhemoglobin Oxyhemoglobin Sodium Potassium Chloride Carbon Dioxide BUN Creatinine Glucose POC Glucose 246 H 179 H Lactic Acid Calcium Phosphorus Magnesium AST ALT Alkaline Phosphatase C-Reactive Protein Total Protein Albumin Triglycerides Ur Specific [place] Urine Creatinine Crossmatch 07/04/21 07/04/21 07/04/21 05:13 05:13 10:52 WBC RBC 3.12 L Hgb 8.5 L Hct 25.2 L MCV MCH 27 L RDW 21.3 H Plt Count Lymph % (Auto) 6.1 L Bailey % (Auto) Lymph # (Auto) 0.6 L Bailey # (Auto) Seg Neutrophils % 85.0 H Seg Neuts % (Manual) Lymphocytes % (Manual) Monocytes % (Manual) Seg Neutrophils # 8.0 H Seg Neutrophils # Man Lymphocytes # (Manual) Monocytes # (Manual) PT INR APTT Fibrinogen D-Dimer ABG pH POC ABG pCO2 POC ABG pO2 ABG pO2 ABG HCO3 ABG O2 Saturation ABG Base Excess ABG Hemoglobin ABG Oxyhemoglobin Oxyhemoglobin Sodium Potassium 3.4 L Chloride Carbon Dioxide BUN Creatinine Glucose 205 H POC Glucose 146 H Lactic Acid Calcium Phosphorus Magnesium AST ALT Alkaline Phosphatase C-Reactive Protein Total Protein Albumin Triglycerides Ur Specific [place] Urine Creatinine Crossmatch 07/04/21 07/04/2107/05/22 16:22 23:52 04:38 WBC RBC Hgb Hct MCV MCH RDW Plt Count Lymph % (Auto) [place] % (Auto) Lymph # (Auto) [place] # (Auto) Seg Neutrophils % Seg Neuts % (Manual) Lymphocytes % (Manual) Monocytes % (Manual) Seg Neutrophils # Seg Neutrophils # Man Lymphocytes # (Manual) Monocytes # (Manual) PT INR APTT Fibrinogen D-Dimer ABG pH POC ABG pCO2 POC ABG pO2 ABG pO2 ABG HCO3 ABG O2 Saturation ABG Base Excess ABG Hemoglobin ABG Oxyhemoglobin Oxyhemoglobin Sodium Potassium 3.0 L Chloride Carbon Dioxide BUN 18 H Creatinine Glucose 174 H POC Glucose 154 H 193 H Lactic Acid Calcium Phosphorus 2.20 L Magnesium AST ALT Alkaline Phosphatase C-Reactive Protein Total Protein Albumin Triglycerides Ur Specific [place] Urine Creatinine Crossmatch 07/05/21 07/05/21 07/05/21 04:38 05:15 12:35 WBC RBC 2.95 L Hgb 7.8 L Hct 23.9 L MCV MCH 27 L RDW 21.0 H Plt Count Lymph % (Auto) [place] % (Auto) Lymph # (Auto) [place] # (Auto) Seg Neutrophils % Seg Neuts % (Manual) Lymphocytes % (Manual) Monocytes % (Manual) Seg Neutrophils # Seg Neutrophils # Man Lymphocytes # (Manual) Monocytes # (Manual) PT INR APTT Fibrinogen D-Dimer ABG pH POC ABG pCO2 POC ABG pO2 ABG pO2 ABG HCO3 ABG O2 Saturation ABG Base Excess ABG Hemoglobin ABG Oxyhemoglobin Oxyhemoglobin Sodium Potassium Chloride Carbon Dioxide BUN Creatinine Glucose POC Glucose 163 H 121 H Lactic Acid Calcium Phosphorus Magnesium AST ALT Alkaline Phosphatase C-Reactive Protein Total Protein Albumin Triglycerides Ur Specific [place] Urine Creatinine Crossmatch 07/05/21 07/05/21 07/05/21 18:27 21:05 23:11 WBC RBC Hgb Hct MCV MCH RDW Plt Count Lymph % (Auto) [place] % (Auto) Lymph # (Auto) Bailey # (Auto) Seg Neutrophils % Seg Neuts % (Manual) Lymphocytes % (Manual) Monocytes % (Manual) Seg Neutrophils # Seg Neutrophils # Man Lymphocytes # (Manual) Monocytes # (Manual) PT INR APTT Fibrinogen D-Dimer ABG pH POC ABG pCO2 POC ABG pO2 ABG pO2 ABG HCO3 ABG O2 Saturation ABG Base Excess ABG Hemoglobin ABG Oxyhemoglobin Oxyhemoglobin Sodium Potassium Chloride Carbon Dioxide BUN Creatinine Glucose POC Glucose 183 H 170 H 184 H Lactic Acid Calcium Phosphorus Magnesium AST ALT Alkaline Phosphatase C-Reactive Protein Total Protein Albumin Triglycerides Ur Specific [place] Urine Creatinine Crossmatch 07/06/21 07/06/21 07/06/21 04:39 05:13 12:12 WBC RBC Hgb Hct MCV MCH RDW Plt Count Lymph % (Auto) [place] % (Auto) Lymph # (Auto) Bailey # (Auto) Seg Neutrophils % Seg Neuts % (Manual) Lymphocytes % (Manual) Monocytes % (Manual) Seg Neutrophils # Seg Neutrophils # Man Lymphocytes # (Manual) Monocytes # (Manual) PT INR APTT Fibrinogen D-Dimer ABG pH POC ABG pCO2 POC ABG pO2 ABG pO2 ABG HCO3 ABG O2 Saturation ABG Base Excess ABG Hemoglobin ABG Oxyhemoglobin Oxyhemoglobin Sodium Potassium 3.4 L Chloride Carbon Dioxide BUN Creatinine Glucose 180 H POC Glucose 183 H 153 H Lactic Acid Calcium Phosphorus Magnesium AST ALT Alkaline Phosphatase C-Reactive Protein Total Protein Albumin Triglycerides Ur Specific [place] Urine Creatinine Crossmatch
[2021-07-06] MEDS: HYDROcodone/ACETAMINOPHEN 5-325 MG TAB PO PRN ×2 (15:48→21:36)
[2021-07-06] MEDS: LIDOCAINE 5% 1 EACH PATCH TD SCH (18:44)
[2021-07-06] MEDS: traZODone 50 MG TAB PO SCH (21:35)
[2021-07-06] MEDS: ENOXAPARIN 40 MG/0.4 ML INJ SUB-Q SCH (21:36)
[2021-07-06] MEDS: MELATONIN 5 MG TAB PO SCH (21:39)
[2021-07-06] MEDS: INSULIN GLARGINE 100 UNITS/ML SUB-Q SCH (22:21)
[2021-07-07] MEDS: HYDROcodone/ACETAMINOPHEN 5-325 MG TAB PO PRN ×2 (03:21→21:33)
[2021-07-07 05:59] LABS: Blood Urea Nitrogen 12 mg/dL (7-17); Calcium 8.6 mg/dL (8.4-10.2); Hemolysis Index 0
[2021-07-07 06:04] LABS: BUN/Creatinine Ratio 20
[2021-07-07] MEDS: hydrALAZINE 100 MG TAB FEEDTUBE SCH ×3 (06:13→21:35)
[2021-07-07] MEDS: INSULIN LISPRO 100 UNIT/ML SUB-Q SCH ×4 (06:30→23:55)
[2021-07-07] MEDS ORDERED: POTASSIUM CHLORIDE 20 MEQ PACKET FEEDTUBE ONE (07:58)
[2021-07-07] MEDS ORDERED: MAGNESIUM SULFATE 2 GM/50 ML BAG IV ONE (08:00)
[2021-07-07] MEDS: amLODIPine 5 MG TAB PO SCH (09:02)
[2021-07-07] MEDS: FAMOTIDINE 20 MG TAB FEEDTUBE SCH ×2 (09:02→21:35)
[2021-07-07] MEDS: K-PHOS NEUTRAL 250 MG TAB PO SCH ×3 (09:02→18:35)
--- NOTE | 2021-07-07 09:30 | Progress Note ---
Assessment and Plan Doing well from airway issues. Lack of movement of extremities is of some concern. Pt /ot for maintenance of rom/ splinting in positions to avoid contractures.Also for swallowing evaluation. Down sizing the trach to an 8 Shiley would not be easy or safe at this time. We discussed attempt to change this Shiley possibly over a bougie in the OR with ICU team and anesthesia tomorrow. Patient with return to the ICU because of respiratory distress possibly mucous plug appears good now. Continue observation in the ICU swallow eval would be appreciated first thing this week. Subjective Date of service: 07/07/21 Patient Reports: Positive: no new complaints Narrative: Patient known to place with good oxygen nation. We will discussed with the ICU team and anesthesia with regards to potentially changing the Shiley from a 10 to an 8 over a bougie in the OR. Patient would also benefit from a modified barium swallow as part of the swallowing eval. Objective Vital Signs - 12hr 07/06/21 07/06/21 07/06/21 21:31 21:36 22:00 Temperature Pulse Rate 100 H 91 H Pulse Rate [ From Monitor] Respiratory 17 27 H 23 Rate Blood Pressure 159/82 141/78 O2 Sat by Pulse 98 96 Oximetry O2 Sat by Pulse Oximetry [ Assessment] 07/06/21 07/06/21 07/06/21 22:31 22:36 23:00 Temperature Pulse Rate 93 H 93 H Pulse Rate [ From Monitor] Respiratory 19 17 13 Rate Blood Pressure 141/78 133/68 O2 Sat by Pulse 96 95 Oximetry O2 Sat by Pulse Oximetry [ Assessment] 07/06/21 07/06/21 07/06/21 23:05 23:21 23:31 Temperature Pulse Rate 96 H 105 H Pulse Rate [ From Monitor] Respiratory 12 20 Rate Blood Pressure 133/68 133/68 O2 Sat by Pulse 95 95 Oximetry O2 Sat by Pulse 97 Oximetry [ Assessment] 07/07/21 07/07/21 07/07/21 00:00 00:31 01:01 Temperature 97.6 F Pulse Rate 102 H 131 H 96 H Pulse Rate [ 102 H From Monitor] Respiratory 23 21 17 Rate Blood Pressure 128/70 128/70 133/71 O2 Sat by Pulse 97 97 98 Oximetry O2 Sat by Pulse Oximetry [ Assessment] 07/07/21 07/07/21 07/07/21 01:31 02:00 02:31 Temperature Pulse Rate 96 H 95 H 104 H Pulse Rate [ From Monitor] Respiratory 19 21 16 Rate Blood Pressure 133/71 146/78 146/78 O2 Sat by Pulse 99 96 98 Oximetry O2 Sat by Pulse Oximetry [ Assessment] 07/07/21 07/07/21 07/07/21 03:00 03:31 04:00 Temperature 98.3 F Pulse Rate 109 H 94 H 93 H Pulse Rate [ 93 H From Monitor] Respiratory 19 24 22 Rate Blood Pressure 147/83 147/83 135/82 O2 Sat by Pulse 96 97 96 Oximetry O2 Sat by Pulse Oximetry [ Assessment] 07/07/21 07/07/21 07/07/21 04:31 05:01 05:31 Temperature Pulse Rate 93 H 95 H 95 H Pulse Rate [ From Monitor] Respiratory 22 28 H 30 H Rate Blood Pressure 135/82 143/67 143/67 O2 Sat by Pulse 97 97 98 Oximetry O2 Sat by Pulse Oximetry [ Assessment] 07/07/21 07/07/21 07/07/21 06:00 06:31 07:00 Temperature Pulse Rate 94 H 91 H 98 H Pulse Rate [ From Monitor] Respiratory 20 18 19 Rate Blood Pressure 151/58 151/58 137/68 O2 Sat by Pulse 98 98 96 Oximetry O2 Sat by Pulse Oximetry [ Assessment] 07/07/21 07/07/21 07/07/21 07:31 07:50 08:00 Temperature 100.2 F H Pulse Rate 96 H 103 H Pulse Rate [ From Monitor] Respiratory 15 33 H Rate Blood Pressure 137/68 139/76 O2 Sat by Pulse 97 97 Oximetry O2 Sat by Pulse 96 Oximetry [ Assessment] 07/07/21 07/07/21 08:31 09:02 Temperature Pulse Rate 113 H 97 H Pulse Rate [ From Monitor] Respiratory 34 H Rate Blood Pressure 139/76 145/80 O2 Sat by Pulse 97 Oximetry O2 Sat by Pulse Oximetry [ Assessment] - Labs 07/05/21 04:38 07/07/21 04:10 Diabetes panel 07/07/21 Range/Units 04:10 Sodium 137 (137-145) mmol/L Potassium 3.1 L (3.6-5.0) mmol/L Chloride 102.0 (98-107) mmol/L Carbon Dioxide 25 (22-30) mmol/L BUN 12 (7-17) mg/dL Creatinine 0.6 (0.6-1.2) mg/dL Glucose 138 H (65-100) mg/dL Calcium 8.6 (8.4-10.2) mg/dL Calcium panel 07/07/21 Range/Units 04:10 Calcium 8.6 (8.4-10.2) mg/dL Phosphorus 2.40 L (2.5-4.5) mg/dL Pituitary panel 07/07/21 Range/Units 04:10 Sodium 137 (137-145) mmol/L Potassium 3.1 L (3.6-5.0) mmol/L Chloride 102.0 (98-107) mmol/L Carbon Dioxide 25 (22-30) mmol/L BUN 12 (7-17) mg/dL Creatinine 0.6 (0.6-1.2) mg/dL Glucose 138 H (65-100) mg/dL Calcium 8.6 (8.4-10.2) mg/dL Adrenal panel 07/07/21 Range/Units 04:10 Sodium 137 (137-145) mmol/L Potassium 3.1 L (3.6-5.0) mmol/L Chloride 102.0 (98-107) mmol/L Carbon Dioxide 25 (22-30) mmol/L BUN 12 (7-17) mg/dL Creatinine 0.6 (0.6-1.2) mg/dL Glucose 138 H (65-100) mg/dL Calcium 8.6 (8.4-10.2) mg/dL
[2021-07-07] MEDS: LIDOCAINE 5% 1 EACH PATCH TD SCH (10:17)
--- NOTE | 2021-07-07 11:34 | Progress Note ---
<VIOLETTE DEMPSEY - Last Filed: 07/07/21 16:19> Assessment and Plan Assessment and plan: This is 76-year-old female with past medical history of diabetes mellitus type 2, hypertension and gout who was admitted to the hospital on 06/11/2021 with swelling of the submandibular region/tongue and shortness of breath. 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 Patient was also noted to have severe coagulopathy due to Coumadin and probably component of hemorrhagic shock with blood loss anemia. S/p vasopressor support with Levophed and Fabian-Synephrine Patient had hospital course complicated by cardiac arrest on 06/14 with ROSC. Patient is status post trach and PEG tube placement on 06/19/2021. Patient was a code met overnight and transfer back in the ICU on 07/04/21 due to decreased level of consciousness, respiratory distress and tachypnea. Hospital course to date: 06/12: Patient received additional 2 units FFP and 1 unit PRBC and vitamin K today. Overnight critical care placed a femoral CVL. Patient sedated on fentanyl, propofol and Versed. Currently on Fabian-Synephrine and Levophed for blood pressure maintenance. Remains amatory support. Infectious disease consult ed. Started on sliding scale insulin and recultured. COVID-19 PCR pending. Surgery at bedside to place chest tube. 06/13: Patient was taken back to the OR today for exchange cricothyroid to possible tracheostomy. Patient returned with ETT. Chest tube was changed to larger size in the OR. Patient was hypotensive, tachycardic, hypoxic in the OR and received hespan, albumin and an A-line. Upon arrival patient was increased to max dose Levophed for hypotension which has resolved. Titrating vasopressors as tolerated. Remains on sedation with 3 agents. Apparently patient was not ventilating her left lung Intra-Op. Noted to have subcu hematoma and trauma to postpharyngeal area. Questionable decrease cardiac wall motion noted in OR-> will order echocardiogram to further investigate. Patient received additional PRBC today. DIC panel resulted as normal. Patient BUN/creatinine did increase as well as noted to have lactic acidosis. May need IV bolus in addition to pressor use. Likely bronc with Pulmicort today as repeat CXR showed right possible pneumo hydrothorax 06/14: Antibiotics changed to Zosyn per ID, surgical packing removed from neck and makeshift [place] drain placed by surgery and old chronic thyroidectomy site. CXR was completed and RN heard gurgling and blood was noted on dressing. ST elevation noted on bedside monitor and patient was hypoxic. FiO2 increased t o 100%. However shortly after patient lost her pulse and ACLS was initiated. Patient received 3 rounds of epinephrine and ROSC was achieved. Stat portable CXR showed resolution of lower lobe collapse on the left and stable right-sided chest tube with hemothorax. CCM updated family. Patient H/H noted to be 7.2/23.2 and did RN to transfuse prepared PRBC which [facility] blood bank. Bedside echo completed. 06/15: Off sedation, intermittently follows commands, remains on the prednisone. Surgery will reassess airway on Thursday to see if any further support is required. Urine studies indicate prerenal, given IV bolus and started on Clinimix today. 06/16: Patient restarted on fentanyl drip due to hypertension. Given more LR due to CR improvement post LR yesterday. Patient started on Lantus subcu after given one-time dose of Lantus. PICC placed today. Patient had a CT chest today which showed no mediasinusitis but extensive subcutaneous air. 06/17: General Surgery recommended transferring patient to a ENT specialized facility. Placed a call to [place] [facility], spoke with the licensed occupational therapy assistant, Dr. Duckworth, who stated that a transfer is possible as long their ENT team accept the patient. Awaiting on a final response. Continue current supportive measures. Basal insulin adjusted for hyperglycemia. 06/18: JEREMIAS overnight. Hypertensive this am, PRN Hydralazine for SBP greater than 160. Remains hyperglycemic, patient is on IV steroids and TPN, basal insulin adjusted. Plan for possible transfer to [place] once an ICU bed is available. 06/19: Low SPO2 and hypotension overnight required Levophed for a short time. Overnight CXR noted with no significant changed. Patient is stable this am and off pressors. Plan for possible Trach and PEG today by General Surgery. 06/20: s/p Trach and PEG. Some bleeding overnight s/p X1 dose of Vitamin K. The bleeding resolved this am, H&H remains stable. Attempted a SAT this am, patient went into SVT, HR in the 160-170 which resolved once sedations were resumed. Plan is to continue to sedation for now, attempt to wean off propofol for a RASS goal of 0 to -2. D/C CCM plan is to wean off sedation as tolerated for PST for possible extubation. Okay to use PEGT per Gen. Surgery. Nutrition consulted for TF management, TF to start tonight once current TPN bag is completed. BG remains elevated, continue current SSI and basal for now, will start tapering IV steroids tomorrow. FWF added for hyponatremia. Wean off pressors as tolerated for MAP above 65. Possible transfer to [place] for ENT eval. 06/21: Overnight events and CXR noted. Worsen subcutaneous emphysema and Rt. Pneumo. CT remains in place and intact to cont. wall suction. Patient remains hemodynamically stable, still on low vent setting. will continue to monitor for now. Patient is also tolerating enteral nutrition via PEGT, TPN D/benjamín. H&H is also trending down, no s/s of any active bleeding. Will continue to trend H&H, transfuse if hgb is less than 7. FWF increased for hypernatremia. Still waiting on possible transfer to [place]. 06/22: JEREMIAS overnight. Subcutaneous emphysema is unchanged. CXR with mild improvement. Patient remains hemodynamically stable. Hydralazine added Q8hr for HTN. FWF increased for hypernatremia. Awaiting transfer to [place] for ENT eval. 06/23: Over 70cc from CT overnight, subcutaneous emphysema with mild improvement. Patient is also tolerating PST this am. Repeat CXR in the am. Patient is still hypertensive, will added norvasc for better control. Continue FWF for hypernatremia and electrolytes replacement as needed, repeat labs in the am. Sp betty in wbcs this am, patient remains afebrile and on IV Abx, most likely due to IV steroids continue to monitor. Continue to taper IV steroids. Hyperglycemia is also improving, continue current SSI and basal for now. 06/24: Patient is anemic today and transfused 1 unit PRBC, hypokalemia and hypophosphatemia repleted, will continue every 6 H/H for now to monitor for bleeding, steroid taper continues, still awaiting transfer to [place], PT/OT consulted, [facility] to talk to case management regarding LTAC transfer. 06/25: Patient responded appropriately to yesterday, placed on pressure support trial today. Per CCM hopefully T-piece in the next 24 to 48 hours and will continue decrease steroids further on . Lujan catheter removed today. 06/26: Patient started T-piece trials, H/H remained stable. Surgery plans to remove chest tube once weaned off ventilator. Increasing her water flush given hypernatremia. 06/27: Chest tube placed to waterseal, T-piece trial trials ongoing. Remains on Zosyn and steroids being tapered. Increasing free water flush, insulin and added 3 times daily insulin. 06/28: Hypernatremia persists, started on D5W for 1 L, replace potassium. Chest tube remains to waterseal. 06/29: Chest tube removed by surgery today, hyponatremia better and dextrose discontinued, hypokalemia noted which was repleted. Speech did see but patient had decreased voice quality and increased wob so aborted 06/30: Hypokalemia noted on labs will be repleted, leukocytosis continues to improve. Continues on T-piece trials and is following commands. 07/01: Transfer from ICU on 06/30. Patient was stable with a trach and T-piece on 5 L. Tolerating tube feeds. 07/02: Patient remains on T-piece with trach in place. On 5 L of O2. She is alert and responds appropriately but not well due to trach tube. Tolerating tube feeds. Appears comfortable. No complaints. No new events reported. Case management reports patient with plans for LTAC placement. 07/03: Patient remains on T-piece with trach in place. On 5 L of O2. Patient tolerating tube feeds. We will check CT of head, neck and chest per pulmonary and general surgery recommendations based on CBC this morning. If leukocytosis persists we will proceed with studies. Patient remains afebrile today. 07/04: s/p X1 dose of IV lasix, patient is now stable on the T-piece via trach at 28% and 5L. Patient remains afebrile, leukocytosis improved, and CXR wiht no significant change. PRN [place] added for pain management. Electrolytes repleted 07/05: Remains stable on T-piece. Complaint of lack of sleep and tiredness this am, Trazadone and melatonin added for sleep. Continue PT- increase mobility and possibly OOB to chair today. Continue pain management. Electrolytes repleted. 07/06: Rested overnight. And continue to tolerate T-piece at 28% and 5L. Continue trazadone and melatonin at night for sleep and pain control with PRN analgesia. Discussed possibility of down sizing the trach to an 8 Shiley with General Raysa jammie. Per Surgery downsizing would not be easy nor safe at this time. Plan to order #10 [facility] instead. Case management to arrange possible placement SNF vs subacute rehab. 07/07: JEREMIAS overnight. New report of BLE pain and swelling, per patient was on gabapentin and smooth muscle relaxers at home. BLE did appear swollen with palpable pedal pulses. Will get BLE doppler, resume gabapentin, and continue PRN analgesic for pain control. Continue mobility/strenght and conditioning with PT. Electrolytes repleted, repeat labs in the am. Assessment and Plan #Acute Hypoxic Respiratory Failure -S/p emergent cricothyroidectomy with surgery with 8.00 ETT -s/p trach 06/19 with surgery (#[address]) -T-piece trials started 06/26 -ST: Unable to tolerate [place] valve on 06/28 -Transfer back in the ICU on 07/04 due to respiratory distress -Patient is stable on T-piece at 28% 5L -CCM consulted, appreciate recommendations -Aspiration precaution HOB above 30 -Continue SPO2 monitoring for SPO2 goal above 92% #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 from dental caries #Leukocytosis-improved -CT neck with contrast showed a significant right floor of mild swelling with extension into the submandibular and submental spaces, significant thickening and inflammation involving the right pharyngeal wall, with the parapharyngeal and retropharyngeal spaces at the level of the thyroid cartilage, epiglottis significantly swollen and so are the aryepiglottic folds resulting in significant airway narrowing at this level, no lymphadenopathy, symmetric submandibular and parathyroid glands, S few scattered caries but no periapical lucencies, nonspecific calcification along the right lateral oropharynx, no definite stone seen within the territory of the submandibular gland ducts, no suspicious rashes lesion -Infectious disease and general surgery consulted, appreciate recommendations -Patient remains afebrile, leukocytosis improved -Hemodynamic stable, not on any perssors -Continue IV Abx- Zosyn per ID #Hypokalemia -K repleted -Monitor and replace electrolytes as needed -Repeat BMP, mag, & phosp in the am #Right-sided pneumothorax -s/p Right chest tube removed 06/29 -06/13 bronchoscopy showed possible blood clot in left lung which may be acting as mucous plug however it was left in place due to possible bleeding inside lung if removed. -06/16 CT chest shows moderate right pneumothorax with collapse of right upper lobe, right thoracostomy tube terminates at the collapsed right upper lobe, bilateral bronchus opacities compatible with infectious/inflammatory etiology, bilateral small pleural effusion, extensive subcutaneous air, small fluid collection in the anterior mediastinum is nonspecific #Hypertension #s/p Cardiac arrest -Patient s/p cardiac arrest with ROSC on 06/14. -S/p vasopressor support with Levophed and Fabian-Synephrine -06/13 Echocardiogram EF 65-70% -BP is stable continue current anihypertensive regimen -Continue blood pressure monitor per protocol -PRN labetalol for SBP greater than 160 #Acute Pain - New report of BLE pain and swelling - BLE did appear swollen with palpable pedal pulses - BLE doppler pending - Resume gabapentin - Continue Lidocaine patch and PRN analgesic for pain control - Maintenance of sleep-wake cycle, continue Trazadone and melatonin - Continue mobility/strenght and conditioning with PT #Diabetes mellitus type 2 -Continue SSI Q6hrs -Lantus Qhs -Avoid Hypoglycemia #Coagulopathy-resolved #Acute blood loss anemia-resolved -Patient was on coumadin at home -Continue Lovenix SubQ -Transfuse hemoglobin less than 7 -Monitor for signs of bleeding #GI/DVT Prophylaxis -PPI- Pepcid -Continue AC-Lovenox -SCDs to BLE while in bed The high probability of a clinically significant, sudden or life threatening deterioration of the [multiple] system(s) required my full and direct attention, intervention and personal management. The aggregate critical care time was [60] minutes. This time is in addition to time spent performing reported procedures but includes the following: [x] Data Review and interpretation [x] Patient assessment and monitoring of vital signs [x] Documentation [x] Medication orders and management Disposition Plan: ICU Total Time Spent with Patient (Minutes): 60 History Interval history: Patient seen and examined at the bedside. Remains stable on T-piece at 28% and 5L. Patient c/o of BLE pain, reported that she used to take gabapentin and muscle relaxers at home. BLE appears swollen but warm to touch with palpable pedal pulses. Otherwise JEREMIAS overnight Hospitalist Physical - Constitutional Vitals: Temp Pulse Resp BP Pulse Ox 100.2 F H 96 H 20 151/81 97 07/07/21 08:00 07/07/21 10:01 07/07/21 10:01 07/07/21 10:01 07/07/21 10:01 General appearance: Present: no acute distress, obese (Morbidly obese), other (On T-piece with trach in place.) - EENT Eyes: Present: PERRL ENT: hearing intact - Neck Neck: Present: normal ROM - Respiratory Respiratory effort: normal Respiratory: bilateral: rhonchi - Cardiovascular Rhythm: regular Heart Sounds: Present: S1 & S2 - Extremities Extremities: no ischemia, pulses intact, pulses symmetrical Extremity abnormal: edema - Peripheral Assessment Generalized Edema Type: Non-pitting Edema Degree: 2+ Capillary Refill: < 3 seconds Skin Temperature: Warm Peripheral Pulses: within normal limits - Abdominal General gastrointestinal: soft, non-distended, normal bowel sounds - Integumentary Integumentary: Present: clear, warm, dry - Psychiatric Psychiatric: appropriate mood/affect, cooperative - Neurologic Neurologic: moves all extremities - Allied Health Allied health notes reviewed: nursing HEART Score - HEART Score Troponin: Troponin T < 0.010 ng/mL (0.00-0.029) 06/11/21 23:21 Results - Labs CBC & Chem 7: 07/05/21 04:38 07/07/21 04:10 Labs: Laboratory Last Values WBC 7.7 K/mm3 (4.5-11.0) 07/05/21 04:38 RBC 2.95 M/mm3 (3.65-5.03) L 07/05/21 04:38 Hgb 7.8 gm/dl (10.1-14.3) L 07/05/21 04:38 Hct 23.9 % (30.3-42.9) L 07/05/21 04:38 MCV 81 fl (79-97) 07/05/21 04:38 MCH 27 pg (28-32) L 07/05/21 04:38 MCHC 33 % (30-34) 07/05/21 04:38 RDW 21.0 % (13.2-15.2) H 07/05/21 04:38 Plt Count 205 K/mm3 (140-440) 07/05/21 04:38 Lymph % (Auto) 6.1 % (13.4-35.0) L 07/04/21 05:13 [place] % (Auto) 6.6 % (0.0-7.3) 07/04/21 05:13 Eos % (Auto) 1.8 % (0.0-4.3) 07/04/21 05:13 Baso % (Auto) 0.5 % (0.0-1.8) 07/04/21 05:13 Lymph # (Auto) 0.6 K/mm3 (1.2-5.4) L 07/04/21 05:13 [place] # (Auto) 0.6 K/mm3 (0.0-0.8) 07/04/21 05:13 Eos # (Auto) 0.2 K/mm3 (0.0-0.4) 07/04/21 05:13 Baso # (Auto) 0.0 K/mm3 (0.0-0.1) 07/04/21 05:13 Add Manual Diff Complete 06/30/21 04:25 Total Counted 100 06/30/21 04:25 Seg Neutrophils % 85.0 % (40.0-70.0) H 07/04/21 05:13 Seg Neuts % (Manual) 81.0 % (40.0-70.0) H 06/30/21 04:25 Band Neutrophils % 0 % 06/30/21 04:25 Lymphocytes % (Manual) 10.0 % (13.4-35.0) L 06/30/21 04:25 Reactive Lymphs % (Man) 0 % 06/30/21 04:25 Monocytes % (Manual) 8.0 % (0.0-7.3) H 06/30/21 04:25 Eosinophils % (Manual) 1.0 % (0.0-4.3) 06/30/21 04:25 Basophils % (Manual) 0 % (0.0-1.8) 06/30/21 04:25 Metamyelocytes % 0 % 06/30/21 04:25 Myelocytes % 0 % 06/30/21 04:25 Promyelocytes % 0 % 06/30/21 04:25 Blast Cells % 0 % 06/30/21 04:25 Nucleated RBC % Not Reportable 06/30/21 04:25 Seg Neutrophils # 8.0 K/mm3 (1.8-7.7) H 07/04/21 05:13 Seg Neutrophils # Man 10.5 K/mm3 (1.8-7.7) H 06/30/21 04:25 Band Neutrophils # 0.0 K/mm3 06/30/21 04:25 Lymphocytes # (Manual) 1.3 K/mm3 (1.2-5.4) 06/30/21 04:25 Abs React Lymphs (Man) 0.0 K/mm3 06/30/21 04:25 Monocytes # (Manual) 1.0 K/mm3 (0.0-0.8) H 06/30/21 04:25 Eosinophils # (Manual) 0.1 K/mm3 (0.0-0.4) 06/30/21 04:25 Basophils # (Manual) 0.0 K/mm3 (0.0-0.1) 06/30/21 04:25 Metamyelocytes # 0.0 K/mm3 06/30/21 04:25 Myelocytes # 0.0 K/mm3 06/30/21 04:25 Promyelocytes # 0.0 K/mm3 06/30/21 04:25 Blast Cells # 0.0 K/mm3 06/30/21 04:25 WBC Morphology Not Reportable 06/30/21 04:25 Hypersegmented Neuts Not Reportable 06/30/21 04:25 Hyposegmented Neuts Not Reportable 06/30/21 04:25 Hypogranular Neuts Not Reportable 06/30/21 04:25 Smudge Cells Not Reportable 06/30/21 04:25 Toxic Granulation Not Reportable 06/30/21 04:25 Toxic Vacuolation Not Reportable 06/30/21 04:25 Dohle Bodies Not Reportable 06/30/21 04:25 Pelger-Huet Anomaly Not Reportable 06/30/21 04:25 Dennis Rods Not Reportable 06/30/21 04:25 Platelet Estimate Consistent w auto 06/30/21 04:25 Clumped Platelets Not Reportable 06/30/21 04:25 Plt Clumps, EDTA Not Reportable 06/30/21 04:25 Large Platelets Few 06/30/21 04:25 Giant Platelets Not Reportable 06/30/21 04:25 Platelet Satelliting Not Reportable 06/30/21 04:25 Plt Morphology Comment Not Reportable 06/30/21 04:25 RBC Morphology Not Reportable 06/30/21 04:25 Dimorphic RBCs Not Reportable 06/30/21 04:25 Polychromasia Rare 06/30/21 04:25 Hypochromasia 1+ 06/30/21 04:25 Poikilocytosis Not Reportable 06/30/21 04:25 Anisocytosis 1+ 06/30/21 04:25 Microcytosis Not Reportable 06/30/21 04:25 Macrocytosis Not Reportable 06/30/21 04:25 Spherocytes Not Reportable 06/30/21 04:25 Pappenheimer Bodies Not Reportable 06/30/21 04:25 Sickle Cells Not Reportable 06/30/21 04:25 Target Cells Rare 06/30/21 04:25 Tear Drop Cells Few 06/30/21 04:25 Ovalocytes Not Reportable 06/30/21 04:25 Stomatocytes Few 06/12/21 01:45 Helmet Cells Not Reportable 06/30/21 04:25 [place] Bodies Not Reportable 06/30/21 04:25 [place] Rings Not Reportable 06/30/21 04:25 [place] Cells Not Reportable 06/30/21 04:25 Bite Cells Not Reportable 06/30/21 04:25 Crenated Cell Not Reportable 06/30/21 04:25 Elliptocytes Not Reportable 06/30/21 04:25 Acanthocytes (Spur) Not Reportable 06/30/21 04:25 Rouleaux Not Reportable 06/30/21 04:25 Hemoglobin C Crystals Not Reportable 06/30/21 04:25 Schistocytes Not Reportable 06/30/21 04:25 Malaria parasites Not Reportable 06/30/21 04:25 Edin Bodies Not Reportable 06/30/21 04:25 Hem Pathologist Commnt No 06/30/21 04:25 PT 18.3 Sec. (12.2-14.9) H 06/20/21 04:33 INR 1.37 (0.87-1.13) H 06/20/21 04:33 APTT 26.4 Sec. (24.2-36.6) 06/13/21 Unknown Fibrinogen 546 mg/dl (211-480) H 06/13/21 Unknown D-Dimer 1244.63 ng/mlDDU (0-234) H 06/13/21 Unknown ABG pH 7.448 pH Units (7.350-7.450) 07/04/21 01:44 POC ABG pCO2 25.6 mmHg (32.0-48.0) L 06/13/21 04:31 ABG pCO2 39.5 mm Hg 07/04/21 01:44 POC ABG pO2 138.8 mmHg (83-108) H 06/13/21 04:31 ABG pO2 107.7 mm Hg (80.0-90.0) H 07/04/21 01:44 POC ABG HCO3 21.4 06/13/21 04:31 ABG HCO3 26.7 mmol/L (20.0-26.0) H 07/04/21 01:44 ABG O2 Saturation 98.0 % (95.0-99.0) 07/04/21 01:44 ABG O2 Content 10.3 (0.0-44) 07/04/21 01:44 POC ABG Base Excess -0.7 06/13/21 04:31 ABG Base Excess 2.5 mmol/L (-2.0-3.0) 07/04/21 01:44 ABG Hemoglobin 7.5 gm/dl (12.0-16.0) L 07/04/21 01:44 ABG Oxyhemoglobin 98.1 (94-98) H 06/13/21 04:31 ABG Carboxyhemoglobin 1.6 % (0.0-5.0) 07/04/21 01:44 ABG Methemoglobin 0.6 % (0.0-1.5) 07/04/21 01:44 Oxyhemoglobin 95.9 % (95.0-99.0) 07/04/21 01:44 Carboxyhemoglobin 0.8 (0.5-1.5) 06/13/21 04:31 FiO2 35 % 07/04/21 01:44 FiO2 % 40.0 06/13/21 04:31 Sodium 137 mmol/L (137-145) 07/07/21 04:10 Potassium 3.1 mmol/L (3.6-5.0) L 07/07/21 04:10 Chloride 102.0 mmol/L (98-107) 07/07/21 04:10 Carbon Dioxide 25 mmol/L (22-30) 07/07/21 04:10 Anion Gap 13 mmol/L 07/07/21 04:10 BUN 12 mg/dL (7-17) 07/07/21 04:10 Creatinine 0.6 mg/dL (0.6-1.2) 07/07/21 04:10 Estimated GFR > 60 ml/min 07/07/21 04:10 BUN/Creatinine Ratio 20 % 07/07/21 04:10 Glucose 138 mg/dL (65-100) H 07/07/21 04:10 POC Glucose 161 mg/dL (70-105) H 07/07/21 11:17 Lactic Acid 5.30 mmol/L (0.7-2.0) H* 06/13/21 15:45 Calcium 8.6 mg/dL (8.4-10.2) 07/07/21 04:10 Phosphorus 2.40 mg/dL (2.5-4.5) L 07/07/21 04:10 Magnesium 1.80 mg/dL (1.7-2.3) 07/07/21 04:10 Total Bilirubin 0.40 mg/dL (0.1-1.2) 06/15/21 03:56 AST 64 units/L (5-40) H 06/15/21 03:56 ALT 106 units/L (7-56) H 06/15/21 03:56 Alkaline Phosphatase 55 units/L (35-129) 06/15/21 03:56 Troponin T < 0.010 ng/mL (0.00-0.029) 06/11/21 23:21 C-Reactive Protein 3.30 mg/dL (0.00-1.30) H 06/16/21 04:32 Total Protein 5.1 g/dL (6.3-8.2) L 06/15/21 03:56 Albumin 2.9 g/dL (3.9-5) L 06/15/21 03:56 Albumin/Globulin Ratio 1.3 % 06/15/21 03:56 Triglycerides 254 mg/dL (2-149) H 06/21/21 04:42 Urine Color Yellow (Yellow) 06/12/21 17:00 Urine Turbidity Clear (Clear) 06/12/21 17:00 Urine pH 5.0 (5.0-7.0) 06/12/21 17:00 Ur Specific [place] 1.035 (1.003-1.030) H 06/12/21 17:00 Urine Protein 30 mg/dl mg/dL (Negative) 06/12/21 17:00 Urine Glucose (UA) 50 mg/dL (Negative) 06/12/21 17:00 Urine Ketones Tr mg/dL (Negative) 06/12/21 17:00 Urine Blood Neg (Negative) 06/12/21 17:00 Urine Nitrite Neg (Negative) 06/12/21 17:00 Urine Bilirubin Neg (Negative) 06/12/21 17:00 Urine Urobilinogen < 2.0 mg/dL (<2.0) 06/12/21 17:00 Ur Leukocyte Esterase Neg (Negative) 06/12/21 17:00 Urine WBC (Auto) < 1.0 /HPF (0.0-6.0) 06/12/21 17:00 Urine RBC (Auto) < 1.0 /HPF (0.0-6.0) 06/12/21 17:00 Urine Creatinine 81.1 mg/dL (0.1-20.0) H 06/15/21 10:40 Urine Sodium 42 mmol/L 06/15/21 10:40 Coronavirus (PCR) Negative (Negative) 06/12/21 09:50 Blood Type O POSITIVE 06/24/21 06:40 Antibody Screen Negative 06/24/21 06:40 Crossmatch See Detail 06/24/21 06:40 Lujan/IV: Voiding Method Indwelling Catheter Active Medications - Current Medications Current Medications: Generic Name Dose Route Start Last Admin Trade Name Freq PRN Reason Stop Dose Admin Hydrocodone Bitart/Acetaminophen 1 each 07/04/21 10:00 07/07/21 03:21 Hydrocodone/Acetaminophen 5-325 Mg Tab PO 1 each Q6H PRN Administration Pain, Moderate (4-6) Amlodipine Besylate 5 mg 06/23/21 10:00 07/07/21 09:02 Amlodipine 5 Mg Tab PO 5 mg QDAY JOLNEE Administration Lipase/Protease/Amylase 1 each 06/19/21 19:20 Lipase 10,500/Protease 25,000/Amylase 43,750 (Units) Dr Melgar FEEDTUBE PRN PRN For Clogged Feeding Tube Atorvastatin Calcium 20 mg 06/22/21 22:00 07/06/21 21:38 Atorvastatin 20 Mg Tab PO 20 mg QHS JOLENE Administration Enoxaparin Sodium 40 mg 06/30/21 22:00 07/06/21 21:36 Enoxaparin 40 Mg/0.4 Ml Inj SUB-Q 40 mg QDAY@2200 [facility] Administration Protocol Famotidine 20 mg 06/24/21 22:00 07/07/21 09:02 Famotidine 20 Mg Tab FEEDTUBE 20 mg BID JOLENE Administration Hydralazine HCl 100 mg 06/22/21 19:00 07/07/21 06:13 Hydralazine 100 Mg Tab FEEDTUBE 100 mg Q8HR JOLENE Administration Hydrogen Peroxide/Benzyl Alcohol 1 applic 07/02/21 19:35 Hydrogen Peroxide 118 Ml Solution TP ONCE [facility] Insulin Glargine 30 units 07/04/21 22:00 07/06/21 22:21 Insulin Glargine 100 Units/Ml SUB-Q 30 units QHS [facility] Administration Insulin Human Lispro 0 unit 06/12/21 12:00 07/06/21 23:07 Insulin Lispro 100 Unit/Ml SUB-Q 3 unit Q6HR [facility] Administration Protocol Labetalol HCl 10 mg 06/21/21 18:00 07/05/21 18:52 Labetalol 20 Mg/4 Ml Inj IV 10 mg Q4HR PRN Administration Hypertension Lidocaine 2 each 07/06/21 18:00 07/07/21 10:17 Lidocaine 5% 1 Each Patch TD 2 each QDAY [facility] Administration Melatonin 5 mg 07/05/21 22:00 07/06/21 21:39 Melatonin 5 Mg Tab PO 5 mg QHS [facility] Administration Metoclopramide HCl 10 mg 06/11/21 20:42 Metoclopramide 10 Mg/2 Ml Inj IV Q6H PRN Nausea And Vomiting Ondansetron HCl 4 mg 06/11/21 20:42 Ondansetron 4 Mg/2 Ml Inj IV Q3H PRN Nausea And Vomiting Simple Syrup 15 ml 06/19/21 19:20 Simple Syrup 15 Ml FEEDTUBE PRN PRN Hypoglycemia Simple Syrup 30 ml 06/19/21 19:20 Simple Syrup 15 Ml FEEDTUBE PRN PRN Hypoglycemia Sodium Bicarbonate 325 mg 06/19/21 19:20 Sodium Bicarbonate 325 Mg Tab FEEDTUBE PRN PRN For Clogged Feeding Tube Sodium Chloride 10 ml 06/11/21 22:00 07/07/21 09:02 Sodium Chloride 0.9% 10 Ml Flush Syringe IV 10 ml BID JOLENE Administration Sodium Chloride 10 ml 06/11/21 20:42 Sodium Chloride 0.9% 10 Ml Flush Syringe IV PRN PRN LINE FLUSH Sodium Phosphate 250 mg 07/07/21 10:00 07/07/21 09:02 K-Phos Neutral 250 Mg Tab PO 07/07/21 18:01 250 mg QID JOLENE Administration Trazodone HCl 100 mg 07/05/21 22:00 07/06/21 21:35 Trazodone 50 Mg Tab PO 100 mg QHS JOLENE Administration Nutrition/Malnutrition Assess - Dietary Evaluation Nutrition/Malnutrition Findings: Nutrition Notes Start: 06/16/21 12:10 Freq: Status: Active Protocol: Document 07/01/21 15:58 CANDIDO (Rec: 07/01/21 16:19 CANDIDO [id number]) Nutrition Notes Initial or Follow up Reassessment Current Diagnosis Diabetes,Sepsis,Hypertension, Respiratory Failure Other Pertinent Diagnosis Jeremiah's Angina, (R) Pneumothorax, Coagulopathy, s/ pCardiac Arrest, Gout... Current Diet TF-Vital AF 1.2 Quan @ 50 ml/hr (since D 06/21). Labs/Tests 07/01: Glu 177. Pertinent Medications 07/01: Insulin, others nutritionally unremarkable. Height 5 ft 8 in Weight 119.9 kg [place] Body Weight (kg) 63.63 BMI 40.1 Weight change and time frame 10.584 Kg body weight gain in 15 days reported Weight Status Morbidly Obese Subjective/Other Information RD consult for routine F/U on TF tolerance. TF continues as prescribed, with no significant events noted. Pt continues on Mechanical Ventilation through Tracheostomy, well tolerated, according to Progress notes. Hypernatremia controlled, flush backed off to 80 ml Q 4 hr. Pt still waiting for transfer to [place] or [facility]. Percent of energy/protein needs met: Prescribed Vital AF 1.2 Quan @ 50 ml/hr provides for energy/ protein needs (1,440 Kcal/90 g ) during LOS; 105% Kcal and 71 % AA. Burn Absent Trauma Absent GI Symptoms Other Difficulty In Swallowing,Chewing Food Allergy No Skin Integrity/Comment Surgical wounds. Current % PO Other Minimum of two criteria No #1 Nutrition Diagnosis Inadequate oral intake Diagnosis Progress(for reassessment Continues documentation) Is patient on ventilator? Yes Is Patient Ambulatory and/or Out of Bed No REE-([facility]-confined to bed) [phone] Calculation Used for Recommendations 65-70% energy needs Additional Notes Energy needs: 1280-1379kcal/ day Pro needs 2g/kg IBW: 127g/day Fluid needs 1ml/kcal Nutrition Intervention Nutrition Support: Continue Vital AF 1.2 Quan @ 50 ml/hr. Flush: 80 ml water flush Q 4 hr. Kcal 1,440 Protein (gm) 90 Carbohydrates (gm) 133 Fat (gm) 65 Fluid (mL) 973 Fiber (gm) 6 % RDI: 105% Kcal; 71% AA. Goal #1 Provide at least 75% of energy /protein needs through Enteral Feeding during LOS. Goal #2 Maintain body weight within +/ -3% of admission body weight during LOS. Follow-Up By: 07/08/21 Additional Comments Continue monitoring Mechanical Ventilation, Na/Flush, TF tolerance and BM. <MIKE CORTEZ E - Last Filed: 07/08/21 07:56> Assessment and Plan Assessment and plan: I saw and evaluated the patient. I agree with the findings and the plan of care as documented in the Nurse Practitioner's~note, with the following corrections and additions. Hospitalist Physical - Constitutional Vitals: Temp Pulse Resp BP Pulse Ox 97.6 F 93 H 32 H 155/98 98 07/08/21 00:00 07/08/21 06:00 07/08/21 06:00 07/08/21 06:00 07/08/21 06:00 HEART Score - HEART Score Troponin: Troponin T < 0.010 ng/mL (0.00-0.029) 06/11/21 23:21 Results - Labs CBC & Chem 7: 07/08/21 04:20 07/08/21 04:20 Labs: Laboratory Last Values WBC 6.0 K/mm3 (4.5-11.0) 07/08/21 04:20 RBC 3.16 M/mm3 (3.65-5.03) L 07/08/21 04:20 Hgb 8.3 gm/dl (10.1-14.3) L 07/08/21 04:20 Hct 25.1 % (30.3-42.9) L 07/08/21 04:20 MCV 80 fl (79-97) 07/08/21 04:20 MCH 26 pg (28-32) L 07/08/21 04:20 MCHC 33 % (30-34) 07/08/21 04:20 RDW 21.0 % (13.2-15.2) H 07/08/21 04:20 Plt Count 284 K/mm3 (140-440) 07/08/21 04:20 Lymph % (Auto) 6.1 % (13.4-35.0) L 07/04/21 05:13 [place] % (Auto) 6.6 % (0.0-7.3) 07/04/21 05:13 Eos % (Auto) 1.8 % (0.0-4.3) 07/04/21 05:13 Baso % (Auto) 0.5 % (0.0-1.8) 07/04/21 05:13 Lymph # (Auto) 0.6 K/mm3 (1.2-5.4) L 07/04/21 05:13 [place] # (Auto) 0.6 K/mm3 (0.0-0.8) 07/04/21 05:13 Eos # (Auto) 0.2 K/mm3 (0.0-0.4) 07/04/21 05:13 Baso # (Auto) 0.0 K/mm3 (0.0-0.1) 07/04/21 05:13 Add Manual Diff Complete 06/30/21 04:25 Total Counted 100 06/30/21 04:25 Seg Neutrophils % 85.0 % (40.0-70.0) H 07/04/21 05:13 Seg Neuts % (Manual) 81.0 % (40.0-70.0) H 06/30/21 04:25 Band Neutrophils % 0 % 06/30/21 04:25 Lymphocytes % (Manual) 10.0 % (13.4-35.0) L 06/30/21 04:25 Reactive Lymphs % (Man) 0 % 06/30/21 04:25 Monocytes % (Manual) 8.0 % (0.0-7.3) H 06/30/21 04:25 Eosinophils % (Manual) 1.0 % (0.0-4.3) 06/30/21 04:25 Basophils % (Manual) 0 % (0.0-1.8) 06/30/21 04:25 Metamyelocytes % 0 % 06/30/21 04:25 Myelocytes % 0 % 06/30/21 04:25 Promyelocytes % 0 % 06/30/21 04:25 Blast Cells % 0 % 06/30/21 04:25 Nucleated RBC % Not Reportable 06/30/21 04:25 Seg Neutrophils # 8.0 K/mm3 (1.8-7.7) H 07/04/21 05:13 Seg Neutrophils # Man 10.5 K/mm3 (1.8-7.7) H 06/30/21 04:25 Band Neutrophils # 0.0 K/mm3 06/30/21 04:25 Lymphocytes # (Manual) 1.3 K/mm3 (1.2-5.4) 06/30/21 04:25 Abs React Lymphs (Man) 0.0 K/mm3 06/30/21 04:25 Monocytes # (Manual) 1.0 K/mm3 (0.0-0.8) H 06/30/21 04:25 Eosinophils # (Manual) 0.1 K/mm3 (0.0-0.4) 06/30/21 04:25 Basophils # (Manual) 0.0 K/mm3 (0.0-0.1) 06/30/21 04:25 Metamyelocytes # 0.0 K/mm3 06/30/21 04:25 Myelocytes # 0.0 K/mm3 06/30/21 04:25 Promyelocytes # 0.0 K/mm3 06/30/21 04:25 Blast Cells # 0.0 K/mm3 06/30/21 04:25 WBC Morphology Not Reportable 06/30/21 04:25 Hypersegmented Neuts Not Reportable 06/30/21 04:25 Hyposegmented Neuts Not Reportable 06/30/21 04:25 Hypogranular Neuts Not Reportable 06/30/21 04:25 Smudge Cells Not Reportable 06/30/21 04:25 Toxic Granulation Not Reportable 06/30/21 04:25 Toxic Vacuolation Not Reportable 06/30/21 04:25 Dohle Bodies Not Reportable 06/30/21 04:25 Pelger-Huet Anomaly Not Reportable 06/30/21 04:25 Dennis Rods Not Reportable 06/30/21 04:25 Platelet Estimate Consistent w auto 06/30/21 04:25 Clumped Platelets Not Reportable 06/30/21 04:25 Plt Clumps, EDTA Not Reportable 06/30/21 04:25 Large Platelets Few 06/30/21 04:25 Giant Platelets Not Reportable 06/30/21 04:25 Platelet Satelliting Not Reportable 06/30/21 04:25 Plt Morphology Comment Not Reportable 06/30/21 04:25 RBC Morphology Not Reportable 06/30/21 04:25 Dimorphic RBCs Not Reportable 06/30/21 04:25 Polychromasia Rare 06/30/21 04:25 Hypochromasia 1+ 06/30/21 04:25 Poikilocytosis Not Reportable 06/30/21 04:25 Anisocytosis 1+ 06/30/21 04:25 Microcytosis Not Reportable 06/30/21 04:25 Macrocytosis Not Reportable 06/30/21 04:25 Spherocytes Not Reportable 06/30/21 04:25 Pappenheimer Bodies Not Reportable 06/30/21 04:25 Sickle Cells Not Reportable 06/30/21 04:25 Target Cells Rare 06/30/21 04:25 Tear Drop Cells Few 06/30/21 04:25 Ovalocytes Not Reportable 06/30/21 04:25 Stomatocytes Few 06/12/21 01:45 Helmet Cells Not Reportable 06/30/21 04:25 [place] Bodies Not Reportable 06/30/21 04:25 [place] Rings Not Reportable 06/30/21 04:25 [place] Cells Not Reportable 06/30/21 04:25 Bite Cells Not Reportable 06/30/21 04:25 Crenated Cell Not Reportable 06/30/21 04:25 Elliptocytes Not Reportable 06/30/21 04:25 Acanthocytes (Spur) Not Reportable 06/30/21 04:25 Rouleaux Not Reportable 06/30/21 04:25 Hemoglobin C Crystals Not Reportable 06/30/21 04:25 Schistocytes Not Reportable 06/30/21 04:25 Malaria parasites Not Reportable 06/30/21 04:25 Edin Bodies Not Reportable 06/30/21 04:25 Hem Pathologist Commnt No 06/30/21 04:25 PT 18.3 Sec. (12.2-14.9) H 06/20/21 04:33 INR 1.37 (0.87-1.13) H 06/20/21 04:33 APTT 26.4 Sec. (24.2-36.6) 06/13/21 Unknown Fibrinogen 546 mg/dl (211-480) H 06/13/21 Unknown D-Dimer 1244.63 ng/mlDDU (0-234) H 06/13/21 Unknown ABG pH 7.448 pH Units (7.350-7.450) 07/04/21 01:44 POC ABG pCO2 25.6 mmHg (32.0-48.0) L 06/13/21 04:31 ABG pCO2 39.5 mm Hg 07/04/21 01:44 POC ABG pO2 138.8 mmHg (83-108) H 06/13/21 04:31 ABG pO2 107.7 mm Hg (80.0-90.0) H 07/04/21 01:44 POC ABG HCO3 21.4 06/13/21 04:31 ABG HCO3 26.7 mmol/L (20.0-26.0) H 07/04/21 01:44 ABG O2 Saturation 98.0 % (95.0-99.0) 07/04/21 01:44 ABG O2 Content 10.3 (0.0-44) 07/04/21 01:44 POC ABG Base Excess -0.7 06/13/21 04:31 ABG Base Excess 2.5 mmol/L (-2.0-3.0) 07/04/21 01:44 ABG Hemoglobin 7.5 gm/dl (12.0-16.0) L 07/04/21 01:44 ABG Oxyhemoglobin 98.1 (94-98) H 06/13/21 04:31 ABG Carboxyhemoglobin 1.6 % (0.0-5.0) 07/04/21 01:44 ABG Methemoglobin 0.6 % (0.0-1.5) 07/04/21 01:44 Oxyhemoglobin 95.9 % (95.0-99.0) 07/04/21 01:44 Carboxyhemoglobin 0.8 (0.5-1.5) 06/13/21 04:31 FiO2 35 % 07/04/21 01:44 FiO2 % 40.0 06/13/21 04:31 Sodium 138 mmol/L (137-145) 07/08/21 04:20 Potassium 3.6 mmol/L (3.6-5.0) 07/08/21 04:20 Chloride 102.3 mmol/L (98-107) 07/08/21 04:20 Carbon Dioxide 22 mmol/L (22-30) 07/08/21 04:20 Anion Gap 17 mmol/L 07/08/21 04:20 BUN 13 mg/dL (7-17) 07/08/21 04:20 Creatinine 0.6 mg/dL (0.6-1.2) 07/08/21 04:20 Estimated GFR > 60 ml/min 07/08/21 04:20 BUN/Creatinine Ratio 22 % 07/08/21 04:20 Glucose 183 mg/dL (65-100) H 07/08/21 04:20 POC Glucose 189 mg/dL (70-105) H 07/08/21 06:12 Lactic Acid 5.30 mmol/L (0.7-2.0) H* 06/13/21 15:45 Calcium 8.4 mg/dL (8.4-10.2) 07/08/21 04:20 Phosphorus 3.70 mg/dL (2.5-4.5) D 07/08/21 04:20 Magnesium 1.90 mg/dL (1.7-2.3) 07/08/21 04:20 Total Bilirubin 0.40 mg/dL (0.1-1.2) 06/15/21 03:56 AST 64 units/L (5-40) H 06/15/21 03:56 ALT 106 units/L (7-56) H 06/15/21 03:56 Alkaline Phosphatase 55 units/L (35-129) 06/15/21 03:56 Troponin T < 0.010 ng/mL (0.00-0.029) 06/11/21 23:21 C-Reactive Protein 3.30 mg/dL (0.00-1.30) H 06/16/21 04:32 Total Protein 5.1 g/dL (6.3-8.2) L 06/15/21 03:56 Albumin 2.9 g/dL (3.9-5) L 06/15/21 03:56 Albumin/Globulin Ratio 1.3 % 06/15/21 03:56 Triglycerides 254 mg/dL (2-149) H 06/21/21 04:42 Urine Color Yellow (Yellow) 06/12/21 17:00 Urine Turbidity Clear (Clear) 06/12/21 17:00 Urine pH 5.0 (5.0-7.0) 06/12/21 17:00 Ur Specific [place] 1.035 (1.003-1.030) H 06/12/21 17:00 Urine Protein 30 mg/dl mg/dL (Negative) 06/12/21 17:00 Urine Glucose (UA) 50 mg/dL (Negative) 06/12/21 17:00 Urine Ketones Tr mg/dL (Negative) 06/12/21 17:00 Urine Blood Neg (Negative) 06/12/21 17:00 Urine Nitrite Neg (Negative) 06/12/21 17:00 Urine Bilirubin Neg (Negative) 06/12/21 17:00 Urine Urobilinogen < 2.0 mg/dL (<2.0) 06/12/21 17:00 Ur Leukocyte Esterase Neg (Negative) 06/12/21 17:00 Urine WBC (Auto) < 1.0 /HPF (0.0-6.0) 06/12/21 17:00 Urine RBC (Auto) < 1.0 /HPF (0.0-6.0) 06/12/21 17:00 Urine Creatinine 81.1 mg/dL (0.1-20.0) H 06/15/21 10:40 Urine Sodium 42 mmol/L 06/15/21 10:40 Coronavirus (PCR) Negative (Negative) 06/12/21 09:50 Blood Type O POSITIVE 06/24/21 06:40 Antibody Screen Negative 06/24/21 06:40 Crossmatch See Detail 06/24/21 06:40 Lujan/IV: Voiding Method Indwelling Catheter Active Medications - Current Medications Current Medications: Generic Name Dose Route Start Last Admin Trade Name Freq PRN Reason Stop Dose Admin Hydrocodone Bitart/Acetaminophen 1 each 07/04/21 10:00 07/07/21 21:33 Hydrocodone/Acetaminophen 5-325 Mg Tab PO 1 each Q6H PRN Administration Pain, Moderate (4-6) Amlodipine Besylate 5 mg 06/23/21 10:00 07/07/21 09:02 Amlodipine 5 Mg Tab PO 5 mg QDAY JOLENE Administration Lipase/Protease/Amylase 1 each 06/19/21 19:20 Lipase 10,500/Protease 25,000/Amylase 43,750 (Units) Dr Melgar FEEDTUBE PRN PRN For Clogged Feeding Tube Atorvastatin Calcium 20 mg 06/22/21 22:00 07/07/21 21:35 Atorvastatin 20 Mg Tab PO 20 mg QHS JOLENE Administration Baclofen 10 mg 07/07/21 11:39 Baclofen 10 Mg Tab PO BID PRN Muscle pain Enoxaparin Sodium 40 mg 06/30/21 22:00 07/07/21 21:34 Enoxaparin 40 Mg/0.4 Ml Inj SUB-Q 40 mg QDAY@2200 JOLENE Administration Protocol Famotidine 20 mg 06/24/21 22:00 07/07/21 21:35 Famotidine 20 Mg Tab FEEDTUBE 20 mg BID JOLENE Administration Gabapentin 100 mg 07/07/21 14:00 07/07/21 21:35 Gabapentin 100 Mg Cap PO 100 mg TID JOLENE Administration Hydralazine HCl 100 mg 06/22/21 19:00 07/08/21 06:38 Hydralazine 100 Mg Tab FEEDTUBE 100 mg Q8HR JOLENE Administration Hydrogen Peroxide/Benzyl Alcohol 1 applic 07/02/21 19:35 Hydrogen Peroxide 118 Ml Solution TP ONCE JOLENE Insulin Glargine 30 units 07/04/21 22:00 07/07/21 23:55 Insulin Glargine 100 Units/Ml SUB-Q 30 units QHS JOLENE Administration Insulin Human Lispro 0 unit 06/12/21 12:00 07/08/21 06:38 Insulin Lispro 100 Unit/Ml SUB-Q 3 unit Q6HR JOLENE Administration Protocol Labetalol HCl 10 mg 06/21/21 18:00 07/07/21 15:54 Labetalol 20 Mg/4 Ml Inj IV 10 mg Q4HR PRN Administration Hypertension Lidocaine 2 each 07/06/21 18:00 07/07/21 10:17 Lidocaine 5% 1 Each Patch TD 2 each QDAY JOLENE Administration Melatonin 5 mg 07/05/21 22:00 07/07/21 21:35 Melatonin 5 Mg Tab PO 5 mg QHS JOLENE Administration Metoclopramide HCl 10 mg 06/11/21 20:42 Metoclopramide 10 Mg/2 Ml Inj IV Q6H PRN Nausea And Vomiting Ondansetron HCl 4 mg 06/11/21 20:42 Ondansetron 4 Mg/2 Ml Inj IV Q3H PRN Nausea And Vomiting Simple Syrup 15 ml 06/19/21 19:20 Simple Syrup 15 Ml FEEDTUBE PRN PRN Hypoglycemia Simple Syrup 30 ml 06/19/21 19:20 Simple Syrup 15 Ml FEEDTUBE PRN PRN Hypoglycemia Sodium Bicarbonate 325 mg 06/19/21 19:20 Sodium Bicarbonate 325 Mg Tab FEEDTUBE PRN PRN For Clogged Feeding Tube Sodium Chloride 10 ml 06/11/21 22:00 07/07/21 22:31 Sodium Chloride 0.9% 10 Ml Flush Syringe IV 10 ml BID JOLENE Administration Sodium Chloride 10 ml 06/11/21 20:42 Sodium Chloride 0.9% 10 Ml Flush Syringe IV PRN PRN LINE FLUSH Trazodone HCl 100 mg 07/05/21 22:00 07/07/21 21:34 Trazodone 50 Mg Tab PO 100 mg QHS JOLENE Administration Nutrition/Malnutrition Assess - Dietary Evaluation Nutrition/Malnutrition Findings: Nutrition Notes Start: 06/16/21 12:10 Freq: Status: Active Protocol: Document 07/01/21 15:58 CANDIDO (Rec: 07/01/21 16:19 CANDIDO [id number]) Nutrition Notes Initial or Follow up Reassessment Current Diagnosis Diabetes,Sepsis,Hypertension, Respiratory Failure Other Pertinent Diagnosis Jeremiah's Angina, (R) Pneumothorax, Coagulopathy, s/ pCardiac Arrest, Gout... Current Diet TF-Vital AF 1.2 Quan @ 50 ml/hr (since D 06/21). Labs/Tests 07/01: Glu 177. Pertinent Medications 07/01: Insulin, others nutritionally unremarkable. Height 5 ft 8 in Weight 119.9 kg [place] Body Weight (kg) 63.63 BMI 40.1 Weight change and time frame 10.584 Kg body weight gain in 15 days reported Weight Status Morbidly Obese Subjective/Other Information RD consult for routine F/U on TF tolerance. TF continues as prescribed, with no significant events noted. Pt continues on Mechanical Ventilation through Tracheostomy, well tolerated, according to Progress notes. Hypernatremia controlled, flush backed off to 80 ml Q 4 hr. Pt still waiting for transfer to [place] or [facility]. Percent of energy/protein needs met: Prescribed Vital AF 1.2 Quan @ 50 ml/hr provides for energy/ protein needs (1,440 Kcal/90 g ) during LOS; 105% Kcal and 71 % AA. Burn Absent Trauma Absent GI Symptoms Other Difficulty In Swallowing,Chewing Food Allergy No Skin Integrity/Comment Surgical wounds. Current % PO Other Minimum of two criteria No #1 Nutrition Diagnosis Inadequate oral intake Diagnosis Progress(for reassessment Continues documentation) Is patient on ventilator? Yes Is Patient Ambulatory and/or Out of Bed No REE-([facility]-confined to bed) 4828.459 Calculation Used for Recommendations 65-70% energy needs Additional Notes Energy needs: 1280-1379kcal/ day Pro needs 2g/kg IBW: 127g/day Fluid needs 1ml/kcal Nutrition Intervention Nutrition Support: Continue Vital AF 1.2 Quan @ 50 ml/hr. Flush: 80 ml water flush Q 4 hr. Kcal 1,440 Protein (gm) 90 Carbohydrates (gm) 133 Fat (gm) 65 Fluid (mL) 973 Fiber (gm) 6 % RDI: 105% Kcal; 71% AA. Goal #1 Provide at least 75% of energy /protein needs through Enteral Feeding during LOS. Goal #2 Maintain body weight within +/ -3% of admission body weight during LOS. Follow-Up By: 07/08/21 Additional Comments Continue monitoring Mechanical Ventilation, Na/Flush, TF tolerance and BM.
[2021-07-07] MEDS ORDERED: BACLOFEN 10 MG TAB PO PRN (11:39)
--- NOTE | 2021-07-07 12:15 | Progress Note ---
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 07/07/2021: No significant change still awaiting trach to be downsized. Complaining of some discomfort and pain does not feel well today. Vital signs are stable heart rate is slightly increased to 100/min. Oxygenation is adequate. Off trach T-piece currently on trach collar. 07/06/2021 No significant change patient appears to be stable. Has trach on T-tube. Consider downsizing the trach. 07/05/21: Continue ICU/IMCU status. Patient is stable for speech as well as PT/OT. Please reconsult them. [facility] has been denied for LTACH so will attempt to get patient into retirement facility. Will speak with surgery about possibly downsizing trach to 8. Speech has no equipment to fit 10. Do not feel comfortable doing it myself or asking RT to change out to smaller trach. 07/04/21: Will keep in ICU/IMCU for now. Treat pain in back with [place] and discontinue Tylenol. Follow up with CM on placement. 07/03/21: Continue current level of care. CM working on placement. 07/02/21: ABG now. Patient did have low grade temp earlier today and still has a white count despite being off steroids. It is trending down. Reviewed ID note and they did mention of persistent consider ct of neck. May need to do this. If done, please scan head as well. Will continue to follow. Spoke with RT about obtaining ABG. 07/01/21: Continue T-piece. Follow up speech recs. Follow up electrolytes. PT/OT. Stable for transfer when bed available 06/30/21: Aggressive replacement of electrolytes. Will repeat chemistry tonight around 8. please call for orders as we would like to keep her K at 4 and Mag at 2. Chemistry in the am. Stable for transfer to telemetry floor. 06/29/21: Speech did see but patient had decreased voice quality and increased wob so aborted. Will ask them to assess again on Thursday. Chest tube out and ordered follow up CXR. Stable for transfer but ok with continuing monitoring in ICU. If bed needed could go to step down. 06/28/21: monitor drainage in ICU for 24 more hours. Can likely come out tomorrow. Continue in ICU for now. Once chest tube out, no objection to transfer. 06/27/21: Will place chest tube to water seal. Instructed staff if any change in respiratory status, place back on suction and obtain CXR. Otherwise will leave off. Continue T-piece as tolerated. Rehab/group home/LTACH a ppropriate. STable for transfer if and when bed becomes available. 06/26/21: T-piece today. If off the vent, agree with surgery and removal of chest tube as subq emphysema is improving as well. PT has seen suggested LTACH, however if we are able to wean she may need group home/rehab. Prognosis continues to improve. 06/25/21: Continue PSV as tolerated. Hopeful T-piece in the next 24-48 hours. Will drop steroids down further on . Can switch to daily and even change to oral. PT/OT consult, and follow up recs. May need LTACH vs rehab vs both. Continue to follow. 06/24/21: Daily PSV trials. Maybe ready for T-piece sson. Continue to wean steroids to off. IMS changed to 40q12 which is fine. Continue chest tube until off vent. Still on list for [facility] but will discuss with CM about checking into LTACH as patient will need rehab. PT/OT consult. 06/21/21: Continue current level of sedation. Chest tube does not have air leak but there is clear evidence of a PTX on right. Stripped tube at bedside and will repeat CXR in the morning. Hold on weaning sedation for now and hold on PSV trials. May need second chest tube vs vats if PTX worsens or does not resolve. Patient still on list for [facility], hopeful they will have a bed soon. Drop steroids to 40q8 starting Thursday. Monitor renal function, likely will improve. Needs more free water. Prognosis still remains guarded. 06/20/21: Restart some sedation. At least pain and maybe diprovan. Would like to wake patient up at some point and attempt some PSV trials. Labs are off this am. Large bump in white count but no fever, also no diff drawn. Could be error vs steroid related but this is in just 24 hours. Will repeat tomorrow. If spikes a temp neves culture as well. Small bump in Cr but still in normal range. Will watch. Now that peg in place, tube feeds and free water flushes. Still on list for [facility]. Patient has been steroids greater than 7 days so will have to wean. Can drop to 60q8 starting tomorrow. Prognosis still remains guarded. 06/19/21: surgery to attempt trach and peg today. Still will ask to keep on transfer list for [facility] as her other issues still need to be addressed. If able to place peg, can stop clinimix, give free water and start tube feeds. Prognosis remains guarded. pH better with drop in tidal volume. 06/18/21: [facility] has agreed to accept but no ICU beds available at this time. Spoke with Dr. Vasquez yesterday and Dr. Patricia spoke with ENT there. Spoke with RT this am and patient did have a leak when cuff let down and her tidal volumes dropped to below 100. Patient remains on abx and steriods. Will consider lightening sedation tomorrow and seeing how patient does if cuff leak persists. Dropped tidal volumes to 450. Continue PPN for now. 06/17/21: spoke with surgery and they feel transfer is reasonable. I have reached out to [facility] and [facility] has spoken with someone from [facility]. Await to he ar back from them. Continue supportive measures and adequate sedation for pain control. No PSV trials as of yet. Blood sugar control, increase lantus. Most likely secondary to steroids. Continue abx therapy. Guarded prognosis. 06/16/21: Renal function improved with fluids. IMS to give more fluids (LR) today which I agree with. FeNa is =0.7. Should be fluid responsive. Continue clinimix. Needs long acting insulin. Agree with lantus. Asked nursing to increase sedation now that we know that patient's mental status is stable. Picc today. Air leak test vs Neck CT on tomorrow. 06/15/21: Hopeful with worsening renal function ( likely from code on yesterday) that sedatives are just lingering from that. Still making good urine but output has fallen off. Will send urine sodium and urine cr to check Fena. Most likely this is prerenal. ordered renal ultrasound as well. Continue abx and steroids. Will start clinimix today. This should help with the free water piece. Will give another liter bolus of LR right now. Keep sedation off for now. Guarded prognosis. 06/14/21: Will discuss with surgery future plans. They have ordered steroids to help with inflammation and abx continue. All others appears stable and no acute evidence of bleeding at this time. Follow up surgery recs if any new ones. Guarded prognosis. 06/13/21: Patient to back to OR today. BLood transfusion. Will send DIC panel and may need to given cryo if over 6 units of PRBC's given. Patient will likely need trach and peg as we need to address nutrition. Chest tube placed, large bore now. Patient now with right sided effusion. Hemothorax???. Will continue to monitor output. Needs picc line as femoral should come out soon. Continue pressors. Continue sedation for pain control and comfort. Guarded prognosis. Surgery comfortable with neck and current situation so they have not request transfer. 1. Placed right femoral central line. pressors can run through this. 2. Repeat chemistry stat given bicarb of 8 and blood sugar of greater than 600. Ordering FSBS now. Earlier bicarb was 25. If accurate will need bicarb drip and vasopressin but not sure as pH on blood gas was normal done around the same time. 3. Coagulopathy is improving. INR down to 4.55 and PTT and pT improving. Will continue to give FFP. Ordered more vitamin K. H/H is stable but patient is oozing from neck and mouth. 4. Vasopressor for blood pressure. Need to keep map 65 and greater 5. Lujan is needed for accurate I/O 6. Surgery called by IMS about current CT situation. They state they will lana ssess in the am. I have reviewed the images myself. If I can position the patient safely without compromising the airway after adequate sedation, may consider placing chest tube now as INR is better and FFP is hanging. Patient is morbidly obese so shits could move the ET tube so if not safe, will wait until surgery comes in the morning. 7. Would not attempt to pass OG or NG tube given current situation in neck 8. Will discuss with surgery tomorrow but I feel this patient should be transferred to a tertiary care facility with ENT as we do not have that service here. CCT 31 minutes. Subjective Date of service: 03/06/22 Interval history: No significant change. Trach remain in place. On T-tube. Awake and responsive. Complaining of some pain and discomfort Objective Vital Signs - 12hr 07/07/21 07/07/21 07/07/21 00:31 01:01 01:31 Temperature Pulse Rate 131 H 96 H 96 H Pulse Rate [ From Monitor] Respiratory 21 17 19 Rate Blood Pressure 128/70 133/71 133/71 O2 Sat by Pulse 97 98 99 Oximetry O2 Sat by Pulse Oximetry [ Assessment] 07/07/21 07/07/21 07/07/21 02:00 02:31 03:00 Temperature Pulse Rate 95 H 104 H 109 H Pulse Rate [ From Monitor] Respiratory 21 16 19 Rate Blood Pressure 146/78 146/78 147/83 O2 Sat by Pulse 96 98 96 Oximetry O2 Sat by Pulse Oximetry [ Assessment] 07/07/21 07/07/21 07/07/21 03:31 04:00 04:31 Temperature 98.3 F Pulse Rate 94 H 93 H 93 H Pulse Rate [ 93 H From Monitor] Respiratory 24 22 22 Rate Blood Pressure 147/83 135/82 135/82 O2 Sat by Pulse 97 96 97 Oximetry O2 Sat by Pulse Oximetry [ Assessment] 07/07/21 07/07/21 07/07/21 05:01 05:31 06:00 Temperature Pulse Rate 95 H 95 H 94 H Pulse Rate [ From Monitor] Respiratory 28 H 30 H 20 Rate Blood Pressure 143/67 143/67 151/58 O2 Sat by Pulse 97 98 98 Oximetry O2 Sat by Pulse Oximetry [ Assessment] 07/07/21 07/07/21 07/07/21 06:31 07:00 07:31 Temperature Pulse Rate 91 H 98 H 96 H Pulse Rate [ From Monitor] Respiratory 18 19 15 Rate Blood Pressure 151/58 137/68 137/68 O2 Sat by Pulse 98 96 97 Oximetry O2 Sat by Pulse Oximetry [ Assessment] 07/07/21 07/07/21 07/07/21 07:50 08:00 08:31 Temperature 100.2 F H 100.2 F H Pulse Rate 103 H 113 H Pulse Rate [ From Monitor] Respiratory 33 H 34 H Rate Blood Pressure 139/76 139/76 O2 Sat by Pulse 97 97 Oximetry O2 Sat by Pulse 96 Oximetry [ Assessment] 07/07/21 07/07/21 07/07/21 09:01 09:02 10:01 Temperature Pulse Rate 97 H 97 H 96 H Pulse Rate [ From Monitor] Respiratory 36 H 20 Rate Blood Pressure 145/80 145/80 151/81 O2 Sat by Pulse 96 97 Oximetry O2 Sat by Pulse Oximetry [ Assessment] 07/07/21 07/07/21 11:00 11:56 Temperature 99.3 F Pulse Rate Pulse Rate [ From Monitor] Respiratory Rate Blood Pressure O2 Sat by Pulse 98 Oximetry O2 Sat by Pulse Oximetry [ Assessment] Constitutional: alert, other (on vent trach in place) Eyes: non-icteric ENT: oropharynx moist Neck: other (trach in place) Ascultation: Bilateral: clear Percussion: Bilateral: not dull Cardiovascular: regular rate and rhythm Gastrointestinal: normoactive bowel sounds, soft Integumentary: other (subq emphysema) Extremities: no edema, other (subq emphysema) Neurologic: normal mental status CBC and BMP: 07/05/21 04:38 07/07/21 04:10 ABG, PT/INR, D-dimer: ABG ABG pH 7.448 pH Units (7.350-7.450) 07/04/21 01:44 POC ABG pCO2 25.6 mmHg (32.0-48.0) L 06/13/21 04:31 ABG pCO2 39.5 mm Hg 07/04/21 01:44 POC ABG pO2 138.8 mmHg (83-108) H 06/13/21 04:31 ABG pO2 107.7 mm Hg (80.0-90.0) H 07/04/21 01:44 POC ABG HCO3 21.4 06/13/21 04:31 ABG O2 Saturation 98.0 % (95.0-99.0) 07/04/21 01:44 PT/INR, D-dimer PT 18.3 Sec. (12.2-14.9) H 06/20/21 04:33 INR 1.37 (0.87-1.13) H 06/20/21 04:33 D-Dimer 1244.63 ng/mlDDU (0-234) H 06/13/21 Unknown Abnormal lab findings: Abnormal Labs 06/11/21 06/11/21 06/11/21 15:23 15:23 19:20 WBC 12.0 H RBC Hgb Hct MCV 72 L MCH 21 L RDW 17.5 H Plt Count Lymph % (Auto) 12.9 L [place] % (Auto) 8.6 H Lymph # (Auto) [place] # (Auto) 1.0 H Seg Neutrophils % 77.4 H Seg Neuts % (Manual) Lymphocytes % (Manual) Monocytes % (Manual) Seg Neutrophils # 9.3 H Seg Neutrophils # Man Lymphocytes # (Manual) Monocytes # (Manual) PT INR APTT Fibrinogen D-Dimer ABG pH POC ABG pCO2 POC ABG pO2 ABG pO2 ABG HCO3 ABG O2 Saturation ABG Base Excess ABG Hemoglobin ABG Oxyhemoglobin Oxyhemoglobin Sodium Potassium Chloride Carbon Dioxide BUN Creatinine Glucose 144 H POC Glucose Lactic Acid Calcium Phosphorus Magnesium AST ALT Alkaline Phosphatase C-Reactive Protein Total Protein Albumin Triglycerides Ur Specific [place] Urine Creatinine Crossmatch See Detail 06/11/21 06/11/21 06/11/21 19:29 19:29 23:21 WBC 15.8 H RBC Hgb 9.4 L Hct MCV 72 L MCH 22 L RDW 17.4 H Plt Count Lymph % (Auto) 9.2 L [place] % (Auto) Lymph # (Auto) [place] # (Auto) Seg Neutrophils % 89.0 H Seg Neuts % (Manual) Lymphocytes % (Manual) Monocytes % (Manual) Seg Neutrophils # 14.0 H Seg Neutrophils # Man Lymphocytes # (Manual) Monocytes # (Manual) PT 72.9 H INR 8.18 H* APTT 71.7 H* Fibrinogen D-Dimer ABG pH POC ABG pCO2 POC ABG pO2 ABG pO2 ABG HCO3 ABG O2 Saturation ABG Base Excess ABG Hemoglobin ABG Oxyhemoglobin Oxyhemoglobin Sodium 149 H D Potassium Chloride 124.3 H Carbon Dioxide 8 L* D BUN Creatinine 0.3 L Glucose 628 H* POC Glucose Lactic Acid Calcium 2.4 L* D Phosphorus Magnesium AST ALT < 5 L Alkaline Phosphatase 19 L C-Reactive Protein Total Protein 1.6 L D Albumin 0.8 L Triglycerides Ur Specific [place] Urine Creatinine Crossmatch 06/11/21 06/11/21 06/11/21 23:21 23:22 23:42 WBC RBC Hgb Hct MCV MCH 27 L RDW 22.2 H Plt Count 131 L Lymph % (Auto) [place] % (Auto) Lymph # (Auto) [place] # (Auto) Seg Neutrophils % Seg Neuts % (Manual) Lymphocytes % (Manual) Monocytes % (Manual) Seg Neutrophils # Seg Neutrophils # Man Lymphocytes # (Manual) Monocytes # (Manual) PT 46.3 H INR 4.55 H APTT 54.8 H Fibrinogen D-Dimer ABG pH POC ABG pCO2 POC ABG pO2 325.9 H ABG pO2 ABG HCO3 ABG O2 Saturation ABG Base Excess ABG Hemoglobin 8.0 L ABG Oxyhemoglobin 99.0 H Oxyhemoglobin Sodium Potassium Chloride Carbon Dioxide BUN Creatinine Glucose POC Glucose Lactic Acid Calcium Phosphorus Magnesium AST ALT Alkaline Phosphatase C-Reactive Protein Total Protein Albumin Triglycerides Ur Specific [place] Urine Creatinine Crossmatch 06/12/21 06/12/21 06/12/21 01:45 01:45 01:45 WBC 21.6 H RBC 3.04 L Hgb 6.7 L D Hct 22.4 L D MCV 74 L MCH 22 L RDW 18.9 H Plt Count Lymph % (Auto) [place] % (Auto) Lymph # (Auto) [place] # (Auto) Seg Neutrophils % Seg Neuts % (Manual) 76.0 H Lymphocytes % (Manual) 2.0 L Monocytes % (Manual) 8.0 H Seg Neutrophils # Seg Neutrophils # Man 16.4 H Lymphocytes # (Manual) 0.4 L Monocytes # (Manual) 1.7 H PT 25.4 H INR 2.10 H APTT Fibrinogen D-Dimer ABG pH POC ABG pCO2 POC ABG pO2 ABG pO2 ABG HCO3 ABG O2 Saturation ABG Base Excess ABG Hemoglobin ABG Oxyhemoglobin Oxyhemoglobin Sodium Potassium 5.6 H D Chloride Carbon Dioxide 20 L D BUN Creatinine Glucose 368 H POC Glucose Lactic Acid Calcium 7.1 L D Phosphorus Magnesium AST ALT Alkaline Phosphatase C-Reactive Protein Total Protein 5.3 L D Albumin 3.1 L Triglycerides Ur Specific [place] Urine Creatinine Crossmatch 06/12/21 06/12/21 06/12/21 02:05 04:41 11:05 WBC 14.6 H RBC 3.52 L Hgb 8.5 L Hct 27.7 L MCV MCH 24 L RDW 20.9 H Plt Count Lymph % (Auto) [place] % (Auto) Lymph # (Auto) [place] # (Auto) Seg Neutrophils % Seg Neuts % (Manual) Lymphocytes % (Manual) Monocytes % (Manual) Seg Neutrophils # Seg Neutrophils # Man Lymphocytes # (Manual) Monocytes # (Manual) PT INR APTT Fibrinogen D-Dimer ABG pH POC ABG pCO2 POC ABG pO2 224.6 H ABG pO2 ABG HCO3 ABG O2 Saturation ABG Base Excess ABG Hemoglobin 7.3 L ABG Oxyhemoglobin 98.7 H Oxyhemoglobin Sodium Potassium Chloride Carbon Dioxide BUN Creatinine Glucose POC Glucose 308 H Lactic Acid Calcium Phosphorus Magnesium AST ALT Alkaline Phosphatase C-Reactive Protein Total Protein Albumin Triglycerides Ur Specific [place] Urine Creatinine Crossmatch 06/12/21 06/12/21 06/12/21 11:05 11:05 12:18 WBC RBC Hgb Hct MCV MCH RDW Plt Count Lymph % (Auto) [place] % (Auto) Lymph # (Auto) [place] # (Auto) Seg Neutrophils % Seg Neuts % (Manual) Lymphocytes % (Manual) Monocytes % (Manual) Seg Neutrophils # Seg Neutrophils # Man Lymphocytes # (Manual) Monocytes # (Manual) PT 16.8 H INR 1.23 H APTT Fibrinogen D-Dimer ABG pH POC ABG pCO2 POC ABG pO2 ABG pO2 ABG HCO3 ABG O2 Saturation ABG Base Excess ABG Hemoglobin ABG Oxyhemoglobin Oxyhemoglobin Sodium Potassium Chloride Carbon Dioxide BUN 24 H Creatinine Glucose 324 H POC Glucose 281 H Lactic Acid Calcium 7.5 L Phosphorus Magnesium AST 70 H ALT 57 H Alkaline Phosphatase C-Reactive Protein Total Protein 6.0 L Albumin 3.6 L Triglycerides Ur Specific [place] Urine Creatinine Crossmatch 06/12/21 06/12/21 06/12/21 17:00 17:00 17:00 WBC RBC Hgb 7.5 L Hct 24.0 L MCV MCH RDW Plt Count Lymph % (Auto) [place] % (Auto) Lymph # (Auto) [place] # (Auto) Seg Neutrophils % Seg Neuts % (Manual) Lymphocytes % (Manual) Monocytes % (Manual) Seg Neutrophils # Seg Neutrophils # Man Lymphocytes # (Manual) Monocytes # (Manual) PT 16.0 H INR 1.16 H APTT Fibrinogen D-Dimer ABG pH POC ABG pCO2 POC ABG pO2 ABG pO2 ABG HCO3 ABG O2 Saturation ABG Base Excess ABG Hemoglobin ABG Oxyhemoglobin Oxyhemoglobin Sodium Potassium Chloride Carbon Dioxide BUN Creatinine Glucose POC Glucose Lactic Acid Calcium Phosphorus Magnesium AST ALT Alkaline Phosphatase C-Reactive Protein Total Protein Albumin Triglycerides Ur Specific [place] 1.035 H Urine Creatinine Crossmatch 06/12/21 06/12/21 06/12/21 18:06 23:00 23:05 WBC RBC Hgb 7.6 L Hct 23.5 L MCV MCH RDW Plt Count Lymph % (Auto) [place] % (Auto) Lymph # (Auto) [place] # (Auto) Seg Neutrophils % Seg Neuts % (Manual) Lymphocytes % (Manual) Monocytes % (Manual) Seg Neutrophils # Seg Neutrophils # Man Lymphocytes # (Manual) Monocytes # (Manual) PT INR APTT Fibrinogen D-Dimer ABG pH POC ABG pCO2 POC ABG pO2 ABG pO2 ABG HCO3 ABG O2 Saturation ABG Base Excess ABG Hemoglobin ABG Oxyhemoglobin Oxyhemoglobin Sodium Potassium Chloride Carbon Dioxide BUN Creatinine Glucose POC Glucose 257 H 300 H Lactic Acid Calcium Phosphorus Magnesium AST ALT Alkaline Phosphatase C-Reactive Protein Total Protein Albumin Triglycerides Ur Specific [place] Urine Creatinine Crossmatch 06/13/21 06/13/21 06/13/21 04:31 05:19 07:30 WBC RBC Hgb 6.8 L Hct 21.7 L MCV MCH RDW Plt Count Lymph % (Auto) [place] % (Auto) Lymph # (Auto) [place] # (Auto) Seg Neutrophils % Seg Neuts % (Manual) Lymphocytes % (Manual) Monocytes % (Manual) Seg Neutrophils # Seg Neutrophils # Man Lymphocytes # (Manual) Monocytes # (Manual) PT INR APTT Fibrinogen D-Dimer ABG pH 7.541 H POC ABG pCO2 25.6 L POC ABG pO2 138.8 H ABG pO2 ABG HCO3 ABG O2 Saturation ABG Base Excess ABG Hemoglobin 7.3 L ABG Oxyhemoglobin 98.1 H Oxyhemoglobin Sodium Potassium Chloride Carbon Dioxide BUN Creatinine Glucose POC Glucose 286 H Lactic Acid Calcium Phosphorus Magnesium AST ALT Alkaline Phosphatase C-Reactive Protein Total Protein Albumin Triglycerides Ur Specific [place] Urine Creatinine Crossmatch 06/13/21 06/13/21 06/13/21 07:30 12:04 14:50 WBC RBC Hgb Hct MCV MCH RDW Plt Count Lymph % (Auto) [place] % (Auto) Lymph # (Auto) [place] # (Auto) Seg Neutrophils % Seg Neuts % (Manual) Lymphocytes % (Manual) Monocytes % (Manual) Seg Neutrophils # Seg Neutrophils # Man Lymphocytes # (Manual) Monocytes # (Manual) PT INR APTT Fibrinogen D-Dimer ABG pH 7.039 L* 7.182 L* POC ABG pCO2 POC ABG pO2 ABG pO2 63.1 L ABG HCO3 17.4 L ABG O2 Saturation 73.4 L ABG Base Excess -12.6 L -7.1 L ABG Hemoglobin 7.7 L 6.9 L ABG Oxyhemoglobin Oxyhemoglobin 71.8 L 93.5 L Sodium Potassium Chloride 108.9 H Carbon Dioxide BUN 28 H Creatinine Glucose 293 H POC Glucose Lactic Acid Calcium 7.2 L Phosphorus Magnesium AST 106 H ALT 92 H Alkaline Phosphatase C-Reactive Protein Total Protein 5.6 L Albumin 3.3 L Triglycerides Ur Specific [place] Urine Creatinine Crossmatch 06/13/21 06/13/21 06/13/21 14:54 15:45 17:34 WBC RBC Hgb Hct MCV MCH RDW Plt Count Lymph % (Auto) [place] % (Auto) Lymph # (Auto) [place] # (Auto) Seg Neutrophils % Seg Neuts % (Manual) Lymphocytes % (Manual) Monocytes % (Manual) Seg Neutrophils # Seg Neutrophils # Man Lymphocytes # (Manual) Monocytes # (Manual) PT INR APTT Fibrinogen D-Dimer ABG pH POC ABG pCO2 POC ABG pO2 ABG pO2 178.4 H ABG HCO3 ABG O2 Saturation 99.1 H ABG Base Excess ABG Hemoglobin 8.0 L ABG Oxyhemoglobin Oxyhemoglobin Sodium Potassium Chloride 107.3 H Carbon Dioxide 19 L BUN 33 H Creatinine 1.5 H Glucose 379 H POC Glucose Lactic Acid 5.30 H* Calcium 6.8 L Phosphorus Magnesium AST ALT Alkaline Phosphatase C-Reactive Protein Total Protein Albumin Triglycerides Ur Specific [place] Urine Creatinine Crossmatch 06/13/21 06/13/21 06/13/21 17:40 23:29 Unknown WBC 22.5 H RBC 3.16 L Hgb 8.0 L Hct 26.0 L MCV MCH 26 L RDW 21.4 H Plt Count Lymph % (Auto) [place] % (Auto) Lymph # (Auto) [place] # (Auto) Seg Neutrophils % Seg Neuts % (Manual) 88.0 H Lymphocytes % (Manual) 4.0 L Monocytes % (Manual) Seg Neutrophils # Seg Neutrophils # Man 19.8 H Lymphocytes # (Manual) 0.9 L Monocytes # (Manual) 1.4 H PT INR APTT Fibrinogen D-Dimer ABG pH POC ABG pCO2 POC ABG pO2 ABG pO2 ABG HCO3 ABG O2 Saturation ABG Base Excess ABG Hemoglobin ABG Oxyhemoglobin Oxyhemoglobin Sodium Potassium Chloride Carbon Dioxide BUN Creatinine Glucose POC Glucose 294 H 288 H Lactic Acid Calcium Phosphorus Magnesium AST ALT Alkaline Phosphatase C-Reactive Protein Total Protein Albumin Triglycerides Ur Specific [place] Urine Creatinine Crossmatch 06/13/21 06/14/21 06/14/21 Unknown 05:39 06:15 WBC RBC 2.93 L Hgb 7.2 L Hct 23.2 L MCV MCH 25 L RDW 21.2 H Plt Count Lymph % (Auto) [place] % (Auto) Lymph # (Auto) [place] # (Auto) Seg Neutrophils % Seg Neuts % (Manual) Lymphocytes % (Manual) Monocytes % (Manual) Seg Neutrophils # Seg Neutrophils # Man Lymphocytes # (Manual) Monocytes # (Manual) PT 17.6 H INR 1.31 H APTT Fibrinogen 546 H D-Dimer 1244.63 H ABG pH POC ABG pCO2 POC ABG pO2 ABG pO2 ABG HCO3 ABG O2 Saturation ABG Base Excess ABG Hemoglobin ABG Oxyhemoglobin Oxyhemoglobin Sodium Potassium Chloride Carbon Dioxide BUN Creatinine Glucose POC Glucose 246 H Lactic Acid Calcium Phosphorus Magnesium AST ALT Alkaline Phosphatase C-Reactive Protein Total Protein Albumin Triglycerides Ur Specific [place] Urine Creatinine Crossmatch 06/14/21 06/14/21 06/14/21 06:15 06:15 09:13 WBC RBC Hgb Hct MCV MCH RDW Plt Count Lymph % (Auto) [place] % (Auto) Lymph # (Auto) [place] # (Auto) Seg Neutrophils % Seg Neuts % (Manual) Lymphocytes % (Manual) Monocytes % (Manual) Seg Neutrophils # Seg Neutrophils # Man Lymphocytes # (Manual) Monocytes # (Manual) PT INR APTT Fibrinogen D-Dimer ABG pH POC ABG pCO2 POC ABG pO2 ABG pO2 183.0 H ABG HCO3 ABG O2 Saturation 99.2 H ABG Base Excess ABG Hemoglobin 6.6 L ABG Oxyhemoglobin Oxyhemoglobin Sodium 147 H Potassium Chloride 112.5 H Carbon Dioxide 21 L BUN 36 H Creatinine 1.4 H Glucose 281 H POC Glucose Lactic Acid Calcium 6.9 L Phosphorus Magnesium AST ALT Alkaline Phosphatase C-Reactive Protein Total Protein Albumin Triglycerides 189 H Ur Specific [place] Urine Creatinine Crossmatch 06/14/21 06/14/21 06/14/21 10:45 12:16 13:30 WBC RBC Hgb 7.1 L Hct 22.3 L MCV MCH RDW Plt Count Lymph % (Auto) [place] % (Auto) Lymph # (Auto) [place] # (Auto) Seg Neutrophils % Seg Neuts % (Manual) Lymphocytes % (Manual) Monocytes % (Manual) Seg Neutrophils # Seg Neutrophils # Man Lymphocytes # (Manual) Monocytes # (Manual) PT INR APTT Fibrinogen D-Dimer ABG pH 7.205 L POC ABG pCO2 POC ABG pO2 ABG pO2 261.3 H ABG HCO3 ABG O2 Saturation 99.4 H ABG Base Excess -7.2 L ABG Hemoglobin 7.6 L ABG Oxyhemoglobin Oxyhemoglobin Sodium Potassium Chloride Carbon Dioxide BUN Creatinine Glucose POC Glucose 174 H Lactic Acid Calcium Phosphorus Magnesium AST ALT Alkaline Phosphatase C-Reactive Protein Total Protein Albumin Triglycerides Ur Specific [place] Urine Creatinine Crossmatch 06/14/21 06/14/21 06/15/21 17:40 18:43 00:06 WBC RBC Hgb Hct MCV MCH RDW Plt Count Lymph % (Auto) [place] % (Auto) Lymph # (Auto) [place] # (Auto) Seg Neutrophils % Seg Neuts % (Manual) Lymphocytes % (Manual) Monocytes % (Manual) Seg Neutrophils # Seg Neutrophils # Man Lymphocytes # (Manual) Monocytes # (Manual) PT INR APTT Fibrinogen D-Dimer ABG pH 7.292 L POC ABG pCO2 POC ABG pO2 ABG pO2 78.8 L ABG HCO3 ABG O2 Saturation ABG Base Excess -5.0 L ABG Hemoglobin 9.1 L ABG Oxyhemoglobin Oxyhemoglobin 93.7 L Sodium Potassium Chloride Carbon Dioxide BUN Creatinine Glucose POC Glucose 182 H 144 H Lactic Acid Calcium Phosphorus Magnesium AST ALT Alkaline Phosphatase C-Reactive Protein Total Protein Albumin Triglycerides Ur Specific [place] Urine Creatinine Crossmatch 06/15/21 06/15/21 06/15/21 03:55 03:56 10:40 WBC RBC Hgb 8.4 L Hct 25.8 L MCV MCH RDW Plt Count Lymph % (Auto) [place] % (Auto) Lymph # (Auto) [place] # (Auto) Seg Neutrophils % Seg Neuts % (Manual) Lymphocytes % (Manual) Monocytes % (Manual) Seg Neutrophils # Seg Neutrophils # Man Lymphocytes # (Manual) Monocytes # (Manual) PT INR APTT Fibrinogen D-Dimer ABG pH POC ABG pCO2 POC ABG pO2 ABG pO2 ABG HCO3 ABG O2 Saturation ABG Base Excess ABG Hemoglobin ABG Oxyhemoglobin Oxyhemoglobin Sodium 147 H Potassium Chloride 112.2 H Carbon Dioxide 21 L BUN 47 H Creatinine 1.9 H Glucose 272 H POC Glucose Lactic Acid Calcium 7.3 L Phosphorus Magnesium AST 64 H ALT 106 H Alkaline Phosphatase C-Reactive Protein Total Protein 5.1 L Albumin 2.9 L Triglycerides Ur Specific [place] Urine Creatinine 81.1 H Crossmatch 06/15/21 06/15/21 06/15/21 11:46 17:16 23:17 WBC RBC Hgb Hct MCV MCH RDW Plt Count Lymph % (Auto) [place] % (Auto) Lymph # (Auto) [place] # (Auto) Seg Neutrophils % Seg Neuts % (Manual) Lymphocytes % (Manual) Monocytes % (Manual) Seg Neutrophils # Seg Neutrophils # Man Lymphocytes # (Manual) Monocytes # (Manual) PT INR APTT Fibrinogen D-Dimer ABG pH POC ABG pCO2 POC ABG pO2 ABG pO2 ABG HCO3 ABG O2 Saturation ABG Base Excess ABG Hemoglobin ABG Oxyhemoglobin Oxyhemoglobin Sodium Potassium Chloride Carbon Dioxide BUN Creatinine Glucose POC Glucose 271 H 268 H 264 H Lactic Acid Calcium Phosphorus Magnesium AST ALT Alkaline Phosphatase C-Reactive Protein Total Protein Albumin Triglycerides Ur Specific [place] Urine Creatinine Crossmatch 06/15/21 06/15/21 06/16/21 Unknown Unknown 04:32 WBC RBC 3.21 L 3.16 L Hgb 8.4 L 8.2 L Hct 26.1 L 25.4 L MCV MCH 26 L 26 L RDW 21.3 H 21.2 H Plt Count 105 L 118 L Lymph % (Auto) [place] % (Auto) Lymph # (Auto) [place] # (Auto) Seg Neutrophils % Seg Neuts % (Manual) Lymphocytes % (Manual) Monocytes % (Manual) Seg Neutrophils # Seg Neutrophils # Man Lymphocytes # (Manual) Monocytes # (Manual) PT INR APTT Fibrinogen D-Dimer ABG pH 7.465 H POC ABG pCO2 POC ABG pO2 ABG pO2 114.1 H ABG HCO3 ABG O2 Saturation ABG Base Excess ABG Hemoglobin 8.4 L ABG Oxyhemoglobin Oxyhemoglobin Sodium Potassium Chloride Carbon Dioxide BUN Creatinine Glucose POC Glucose Lactic Acid Calcium Phosphorus Magnesium AST ALT Alkaline Phosphatase C-Reactive Protein Total Protein Albumin Triglycerides Ur Specific [place] Urine Creatinine Crossmatch 06/16/21 06/16/21 06/16/21 04:32 04:32 05:08 WBC RBC Hgb Hct MCV MCH RDW Plt Count Lymph % (Auto) [place] % (Auto) Lymph # (Auto) [place] # (Auto) Seg Neutrophils % Seg Neuts % (Manual) Lymphocytes % (Manual) Monocytes % (Manual) Seg Neutrophils # Seg Neutrophils # Man Lymphocytes # (Manual) Monocytes # (Manual) PT INR APTT Fibrinogen D-Dimer ABG pH POC ABG pCO2 POC ABG pO2 ABG pO2 ABG HCO3 ABG O2 Saturation ABG Base Excess ABG Hemoglobin ABG Oxyhemoglobin Oxyhemoglobin Sodium 148 H Potassium 3.3 L Chloride 115.1 H Carbon Dioxide 21 L BUN 54 H Creatinine 1.6 H Glucose 367 H POC Glucose 356 H Lactic Acid Calcium 7.4 L Phosphorus Magnesium AST ALT Alkaline Phosphatase C-Reactive Protein 3.30 H Total Protein Albumin Triglycerides Ur Specific [place] Urine Creatinine Crossmatch 06/16/21 06/16/21 06/16/21 05:30 11:46 17:03 WBC RBC Hgb Hct MCV MCH RDW Plt Count Lymph % (Auto) [place] % (Auto) Lymph # (Auto) [place] # (Auto) Seg Neutrophils % Seg Neuts % (Manual) Lymphocytes % (Manual) Monocytes % (Manual) Seg Neutrophils # Seg Neutrophils # Man Lymphocytes # (Manual) Monocytes # (Manual) PT INR APTT Fibrinogen D-Dimer ABG pH 7.475 H POC ABG pCO2 POC ABG pO2 ABG pO2 171.8 H ABG HCO3 ABG O2 Saturation 99.1 H ABG Base Excess ABG Hemoglobin 11.7 L ABG Oxyhemoglobin Oxyhemoglobin Sodium Potassium Chloride Carbon Dioxide BUN Creatinine Glucose POC Glucose 309 H 345 H Lactic Acid Calcium Phosphorus Magnesium AST ALT Alkaline Phosphatase C-Reactive Protein Total Protein Albumin Triglycerides Ur Specific [place] Urine Creatinine Crossmatch 06/16/21 06/16/21 06/17/21 20:18 23:22 04:50 WBC RBC Hgb Hct MCV MCH RDW Plt Count Lymph % (Auto) [place] % (Auto) Lymph # (Auto) [place] # (Auto) Seg Neutrophils % Seg Neuts % (Manual) Lymphocytes % (Manual) Monocytes % (Manual) Seg Neutrophils # Seg Neutrophils # Man Lymphocytes # (Manual) Monocytes # (Manual) PT INR APTT Fibrinogen D-Dimer ABG pH 7.479 H POC ABG pCO2 POC ABG pO2 ABG pO2 143.1 H ABG HCO3 ABG O2 Saturation ABG Base Excess ABG Hemoglobin 10.0 L ABG Oxyhemoglobin Oxyhemoglobin Sodium Potassium Chloride Carbon Dioxide BUN Creatinine Glucose POC Glucose 325 H 315 H Lactic Acid Calcium Phosphorus Magnesium AST ALT Alkaline Phosphatase C-Reactive Protein Total Protein Albumin Triglycerides Ur Specific [place] Urine Creatinine Crossmatch 06/17/21 06/17/21 06/17/21 05:18 05:30 05:30 WBC RBC 3.17 L Hgb 8.2 L Hct 25.5 L MCV MCH 26 L RDW 21.2 H Plt Count 128 L Lymph % (Auto) [place] % (Auto) Lymph # (Auto) [place] # (Auto) Seg Neutrophils % Seg Neuts % (Manual) Lymphocytes % (Manual) Monocytes % (Manual) Seg Neutrophils # Seg Neutrophils # Man Lymphocytes # (Manual) Monocytes # (Manual) PT INR APTT Fibrinogen D-Dimer ABG pH POC ABG pCO2 POC ABG pO2 ABG pO2 ABG HCO3 ABG O2 Saturation ABG Base Excess ABG Hemoglobin ABG Oxyhemoglobin Oxyhemoglobin Sodium 148 H Potassium Chloride 113.7 H Carbon Dioxide 20 L BUN 57 H Creatinine 1.4 H Glucose 351 H POC Glucose 324 H Lactic Acid Calcium 8.0 L Phosphorus 2.30 L Magnesium AST ALT Alkaline Phosphatase C-Reactive Protein Total Protein Albumin Triglycerides Ur Specific [place] Urine Creatinine Crossmatch 06/17/21 06/17/21 06/17/21 11:49 17:43 21:42 WBC RBC Hgb Hct MCV MCH RDW Plt Count Lymph % (Auto) [place] % (Auto) Lymph # (Auto) [place] # (Auto) Seg Neutrophils % Seg Neuts % (Manual) Lymphocytes % (Manual) Monocytes % (Manual) Seg Neutrophils # Seg Neutrophils # Man Lymphocytes # (Manual) Monocytes # (Manual) PT INR APTT Fibrinogen D-Dimer ABG pH POC ABG pCO2 POC ABG pO2 ABG pO2 ABG HCO3 ABG O2 Saturation ABG Base Excess ABG Hemoglobin ABG Oxyhemoglobin Oxyhemoglobin Sodium Potassium Chloride Carbon Dioxide BUN Creatinine Glucose POC Glucose 305 H 307 H 286 H Lactic Acid Calcium Phosphorus Magnesium AST ALT Alkaline Phosphatase C-Reactive Protein Total Protein Albumin Triglycerides Ur Specific [place] Urine Creatinine Crossmatch 06/17/21 06/18/21 06/18/21 23:59 04:20 04:37 WBC RBC 3.53 L Hgb 9.1 L Hct 28.7 L MCV MCH 26 L RDW 21.3 H Plt Count Lymph % (Auto) [place] % (Auto) Lymph # (Auto) [place] # (Auto) Seg Neutrophils % Seg Neuts % (Manual) Lymphocytes % (Manual) Monocytes % (Manual) Seg Neutrophils # Seg Neutrophils # Man Lymphocytes # (Manual) Monocytes # (Manual) PT INR APTT Fibrinogen D-Dimer ABG pH 7.495 H POC ABG pCO2 POC ABG pO2 ABG pO2 108.3 H ABG HCO3 ABG O2 Saturation ABG Base Excess -2.1 L ABG Hemoglobin 10.0 L ABG Oxyhemoglobin Oxyhemoglobin Sodium Potassium Chloride Carbon Dioxide BUN Creatinine Glucose POC Glucose 264 H Lactic Acid Calcium Phosphorus Magnesium AST ALT Alkaline Phosphatase C-Reactive Protein Total Protein Albumin Triglycerides Ur Specific [place] Urine Creatinine Crossmatch 06/18/21 06/18/21 06/18/21 04:37 05:32 11:21 WBC RBC Hgb Hct MCV MCH RDW Plt Count Lymph % (Auto) [place] % (Auto) Lymph # (Auto) [place] # (Auto) Seg Neutrophils % Seg Neuts % (Manual) Lymphocytes % (Manual) Monocytes % (Manual) Seg Neutrophils # Seg Neutrophils # Man Lymphocytes # (Manual) Monocytes # (Manual) PT INR APTT Fibrinogen D-Dimer ABG pH POC ABG pCO2 POC ABG pO2 ABG pO2 ABG HCO3 ABG O2 Saturation ABG Base Excess ABG Hemoglobin ABG Oxyhemoglobin Oxyhemoglobin Sodium 148 H Potassium Chloride 114.7 H Carbon Dioxide BUN 59 H Creatinine 1.3 H Glucose 329 H POC Glucose 293 H 291 H Lactic Acid Calcium 8.1 L Phosphorus Magnesium AST ALT Alkaline Phosphatase C-Reactive Protein Total Protein Albumin Triglycerides Ur Specific [place] Urine Creatinine Crossmatch 06/18/21 06/18/21 06/19/21 18:21 21:46 00:15 WBC RBC Hgb Hct MCV MCH RDW Plt Count Lymph % (Auto) [place] % (Auto) Lymph # (Auto) [place] # (Auto) Seg Neutrophils % Seg Neuts % (Manual) Lymphocytes % (Manual) Monocytes % (Manual) Seg Neutrophils # Seg Neutrophils # Man Lymphocytes # (Manual) Monocytes # (Manual) PT INR APTT Fibrinogen D-Dimer ABG pH POC ABG pCO2 POC ABG pO2 ABG pO2 ABG HCO3 ABG O2 Saturation ABG Base Excess ABG Hemoglobin ABG Oxyhemoglobin Oxyhemoglobin Sodium Potassium Chloride Carbon Dioxide BUN Creatinine Glucose POC Glucose 239 H 259 H 310 H Lactic Acid Calcium Phosphorus Magnesium AST ALT Alkaline Phosphatase C-Reactive Protein Total Protein Albumin Triglycerides Ur Specific [place] Urine Creatinine Crossmatch 06/19/21 06/19/21 06/19/21 04:00 04:00 04:50 WBC RBC 3.64 L Hgb 9.1 L Hct 29.1 L MCV MCH 25 L RDW 21.5 H Plt Count Lymph % (Auto) [place] % (Auto) Lymph # (Auto) [place] # (Auto) Seg Neutrophils % Seg Neuts % (Manual) Lymphocytes % (Manual) Monocytes % (Manual) Seg Neutrophils # Seg Neutrophils # Man Lymphocytes # (Manual) Monocytes # (Manual) PT INR APTT Fibrinogen D-Dimer ABG pH POC ABG pCO2 POC ABG pO2 ABG pO2 78.9 L ABG HCO3 ABG O2 Saturation ABG Base Excess -3.2 L ABG Hemoglobin 7.6 L ABG Oxyhemoglobin Oxyhemoglobin Sodium 148 H Potassium Chloride 114.9 H Carbon Dioxide 19 L BUN 59 H Creatinine Glucose 345 H POC Glucose Lactic Acid Calcium 8.1 L Phosphorus 4.60 H D Magnesium 2.40 H AST ALT Alkaline Phosphatase C-Reactive Protein Total Protein Albumin Triglycerides Ur Specific [place] Urine Creatinine Crossmatch 06/19/21 06/19/21 06/19/21 06:28 11:11 17:20 WBC RBC Hgb Hct MCV MCH RDW Plt Count Lymph % (Auto) [place] % (Auto) Lymph # (Auto) [place] # (Auto) Seg Neutrophils % Seg Neuts % (Manual) Lymphocytes % (Manual) Monocytes % (Manual) Seg Neutrophils # Seg Neutrophils # Man Lymphocytes # (Manual) Monocytes # (Manual) PT 29.7 H INR 2.57 H APTT Fibrinogen D-Dimer ABG pH POC ABG pCO2 POC ABG pO2 ABG pO2 ABG HCO3 ABG O2 Saturation ABG Base Excess ABG Hemoglobin ABG Oxyhemoglobin Oxyhemoglobin Sodium Potassium Chloride Carbon Dioxide BUN Creatinine Glucose POC Glucose 279 H 275 H Lactic Acid Calcium Phosphorus Magnesium AST ALT Alkaline Phosphatase C-Reactive Protein Total Protein Albumin Triglycerides Ur Specific [place] Urine Creatinine Crossmatch 06/19/21 06/19/21 06/19/21 18:30 19:20 23:27 WBC RBC Hgb 8.0 L Hct 25.0 L MCV MCH RDW Plt Count Lymph % (Auto) [place] % (Auto) Lymph # (Auto) [place] # (Auto) Seg Neutrophils % Seg Neuts % (Manual) Lymphocytes % (Manual) Monocytes % (Manual) Seg Neutrophils # Seg Neutrophils # Man Lymphocytes # (Manual) Monocytes # (Manual) PT INR APTT Fibrinogen D-Dimer ABG pH POC ABG pCO2 POC ABG pO2 ABG pO2 ABG HCO3 ABG O2 Saturation ABG Base Excess ABG Hemoglobin ABG Oxyhemoglobin Oxyhemoglobin Sodium Potassium Chloride Carbon Dioxide BUN Creatinine Glucose POC Glucose 279 H 290 H Lactic Acid Calcium Phosphorus Magnesium AST ALT Alkaline Phosphatase C-Reactive Protein Total Protein Albumin Triglycerides Ur Specific [place] Urine Creatinine Crossmatch 06/20/21 06/20/21 06/20/21 00:00 04:33 04:33 WBC 22.3 H RBC 3.31 L Hgb 7.4 L 8.5 L Hct 22.5 L 26.5 L MCV MCH 26 L RDW 21.5 H Plt Count Lymph % (Auto) [place] % (Auto) Lymph # (Auto) [place] # (Auto) Seg Neutrophils % Seg Neuts % (Manual) Lymphocytes % (Manual) Monocytes % (Manual) Seg Neutrophils # Seg Neutrophils # Man Lymphocytes # (Manual) Monocytes # (Manual) PT INR APTT Fibrinogen D-Dimer ABG pH POC ABG pCO2 POC ABG pO2 ABG pO2 ABG HCO3 ABG O2 Saturation ABG Base Excess ABG Hemoglobin ABG Oxyhemoglobin Oxyhemoglobin Sodium 148 H Potassium Chloride 114.2 H Carbon Dioxide BUN 70 H Creatinine 1.4 H Glucose 313 H POC Glucose Lactic Acid Calcium 8.2 L Phosphorus Magnesium 2.50 H AST ALT Alkaline Phosphatase C-Reactive Protein Total Protein Albumin Triglycerides Ur Specific [place] Urine Creatinine Crossmatch 06/20/21 06/20/21 06/20/21 04:33 05:27 11:21 WBC RBC Hgb Hct MCV MCH RDW Plt Count Lymph % (Auto) [place] % (Auto) Lymph # (Auto) [place] # (Auto) Seg Neutrophils % Seg Neuts % (Manual) Lymphocytes % (Manual) Monocytes % (Manual) Seg Neutrophils # Seg Neutrophils # Man Lymphocytes # (Manual) Monocytes # (Manual) PT 18.3 H INR 1.37 H APTT Fibrinogen D-Dimer ABG pH POC ABG pCO2 POC ABG pO2 ABG pO2 ABG HCO3 ABG O2 Saturation ABG Base Excess ABG Hemoglobin ABG Oxyhemoglobin Oxyhemoglobin Sodium Potassium Chloride Carbon Dioxide BUN Creatinine Glucose POC Glucose 288 H 306 H Lactic Acid Calcium Phosphorus Magnesium AST ALT Alkaline Phosphatase C-Reactive Protein Total Protein Albumin Triglycerides Ur Specific [place] Urine Creatinine Crossmatch 06/20/21 06/20/21 06/20/21 12:23 15:56 18:20 WBC RBC Hgb 8.2 L 8.1 L Hct 25.9 L 25.5 L MCV MCH RDW Plt Count Lymph % (Auto) [place] % (Auto) Lymph # (Auto) [place] # (Auto) Seg Neutrophils % Seg Neuts % (Manual) Lymphocytes % (Manual) Monocytes % (Manual) Seg Neutrophils # Seg Neutrophils # Man Lymphocytes # (Manual) Monocytes # (Manual) PT INR APTT Fibrinogen D-Dimer ABG pH POC ABG pCO2 POC ABG pO2 ABG pO2 ABG HCO3 ABG O2 Saturation ABG Base Excess ABG Hemoglobin ABG Oxyhemoglobin Oxyhemoglobin Sodium Potassium Chloride Carbon Dioxide BUN Creatinine Glucose POC Glucose 293 H Lactic Acid Calcium Phosphorus Magnesium AST ALT Alkaline Phosphatase C-Reactive Protein Total Protein Albumin Triglycerides Ur Specific [place] Urine Creatinine Crossmatch 06/20/21 06/21/21 06/21/21 23:11 04:20 04:42 WBC 15.1 H RBC 2.84 L Hgb 7.3 L Hct 23.1 L MCV MCH 26 L RDW 21.5 H Plt Count Lymph % (Auto) 3.5 L [place] % (Auto) 11.7 H Lymph # (Auto) 0.5 L [place] # (Auto) 1.8 H Seg Neutrophils % 84.7 H Seg Neuts % (Manual) Lymphocytes % (Manual) Monocytes % (Manual) Seg Neutrophils # 12.8 H Seg Neutrophils # Man Lymphocytes # (Manual) Monocytes # (Manual) PT INR APTT Fibrinogen D-Dimer ABG pH POC ABG pCO2 POC ABG pO2 ABG pO2 98.5 H ABG HCO3 ABG O2 Saturation ABG Base Excess ABG Hemoglobin 7.2 L ABG Oxyhemoglobin Oxyhemoglobin Sodium Potassium Chloride Carbon Dioxide BUN Creatinine Glucose POC Glucose 206 H Lactic Acid Calcium Phosphorus Magnesium AST ALT Alkaline Phosphatase C-Reactive Protein Total Protein Albumin Triglycerides Ur Specific [place] Urine Creatinine Crossmatch 06/21/21 06/21/21 06/21/21 04:42 05:08 11:06 WBC RBC Hgb Hct MCV MCH RDW Plt Count Lymph % (Auto) [place] % (Auto) Lymph # (Auto) [place] # (Auto) Seg Neutrophils % Seg Neuts % (Manual) Lymphocytes % (Manual) Monocytes % (Manual) Seg Neutrophils # Seg Neutrophils # Man Lymphocytes # (Manual) Monocytes # (Manual) PT INR APTT Fibrinogen D-Dimer ABG pH POC ABG pCO2 POC ABG pO2 ABG pO2 ABG HCO3 ABG O2 Saturation ABG Base Excess ABG Hemoglobin ABG Oxyhemoglobin Oxyhemoglobin Sodium 151 H Potassium Chloride 117.2 H Carbon Dioxide 21 L BUN 75 H Creatinine 1.6 H Glucose 216 H POC Glucose 190 H 204 H Lactic Acid Calcium 7.9 L Phosphorus Magnesium 2.60 H AST ALT Alkaline Phosphatase C-Reactive Protein Total Protein Albumin Triglycerides 254 H Ur Specific [place] Urine Creatinine Crossmatch 06/21/21 06/21/21 06/21/21 14:00 16:42 21:52 WBC RBC Hgb 7.1 L 7.2 L Hct 22.0 L 22.1 L MCV MCH RDW Plt Count Lymph % (Auto) [place] % (Auto) Lymph # (Auto) [place] # (Auto) Seg Neutrophils % Seg Neuts % (Manual) Lymphocytes % (Manual) Monocytes % (Manual) Seg Neutrophils # Seg Neutrophils # Man Lymphocytes # (Manual) Monocytes # (Manual) PT INR APTT Fibrinogen D-Dimer ABG pH POC ABG pCO2 POC ABG pO2 ABG pO2 ABG HCO3 ABG O2 Saturation ABG Base Excess ABG Hemoglobin ABG Oxyhemoglobin Oxyhemoglobin Sodium Potassium Chloride Carbon Dioxide BUN Creatinine Glucose POC Glucose 207 H Lactic Acid Calcium Phosphorus Magnesium AST ALT Alkaline Phosphatase C-Reactive Protein Total Protein Albumin Triglycerides Ur Specific [place] Urine Creatinine Crossmatch 06/21/21 06/22/21 06/22/21 23:29 04:30 04:30 WBC 16.8 H RBC 2.93 L Hgb 7.4 L Hct 23.9 L MCV MCH 25 L RDW 21.8 H Plt Count Lymph % (Auto) [place] % (Auto) Lymph # (Auto) [place] # (Auto) Seg Neutrophils % Seg Neuts % (Manual) Lymphocytes % (Manual) Monocytes % (Manual) Seg Neutrophils # Seg Neutrophils # Man Lymphocytes # (Manual) Monocytes # (Manual) PT INR APTT Fibrinogen D-Dimer ABG pH POC ABG pCO2 POC ABG pO2 ABG pO2 ABG HCO3 ABG O2 Saturation ABG Base Excess ABG Hemoglobin ABG Oxyhemoglobin Oxyhemoglobin Sodium 151 H Potassium Chloride 118.7 H Carbon Dioxide BUN 57 H Creatinine Glucose 238 H POC Glucose 273 H Lactic Acid Calcium 8.0 L Phosphorus Magnesium 2.70 H AST ALT Alkaline Phosphatase C-Reactive Protein Total Protein Albumin Triglycerides Ur Specific [place] Urine Creatinine Crossmatch 06/22/21 06/22/21 06/22/21 05:17 11:31 14:20 WBC RBC Hgb 7.4 L Hct 22.5 L MCV MCH RDW Plt Count Lymph % (Auto) [place] % (Auto) Lymph # (Auto) [place] # (Auto) Seg Neutrophils % Seg Neuts % (Manual) Lymphocytes % (Manual) Monocytes % (Manual) Seg Neutrophils # Seg Neutrophils # Man Lymphocytes # (Manual) Monocytes # (Manual) PT INR APTT Fibrinogen D-Dimer ABG pH POC ABG pCO2 POC ABG pO2 ABG pO2 ABG HCO3 ABG O2 Saturation ABG Base Excess ABG Hemoglobin ABG Oxyhemoglobin Oxyhemoglobin Sodium Potassium Chloride Carbon Dioxide BUN Creatinine Glucose POC Glucose 214 H 214 H Lactic Acid Calcium Phosphorus Magnesium AST ALT Alkaline Phosphatase C-Reactive Protein Total Protein Albumin Triglycerides Ur Specific [place] Urine Creatinine Crossmatch 06/22/21 06/22/21 06/23/21 17:18 23:47 05:33 WBC RBC Hgb Hct MCV MCH RDW Plt Count Lymph % (Auto) [place] % (Auto) Lymph # (Auto) [place] # (Auto) Seg Neutrophils % Seg Neuts % (Manual) Lymphocytes % (Manual) Monocytes % (Manual) Seg Neutrophils # Seg Neutrophils # Man Lymphocytes # (Manual) Monocytes # (Manual) PT INR APTT Fibrinogen D-Dimer ABG pH POC ABG pCO2 POC ABG pO2 ABG pO2 ABG HCO3 ABG O2 Saturation ABG Base Excess ABG Hemoglobin ABG Oxyhemoglobin Oxyhemoglobin Sodium Potassium Chloride Carbon Dioxide BUN Creatinine Glucose POC Glucose 238 H 227 H 202 H Lactic Acid Calcium Phosphorus Magnesium AST ALT Alkaline Phosphatase C-Reactive Protein Total Protein Albumin Triglycerides Ur Specific [place] Urine Creatinine Crossmatch 06/23/21 06/23/21 06/23/21 10:04 10:04 11:06 WBC 20.3 H RBC 2.71 L Hgb 7.3 L Hct 21.8 L MCV MCH 27 L RDW 22.1 H Plt Count Lymph % (Auto) [place] % (Auto) Lymph # (Auto) [place] # (Auto) Seg Neutrophils % Seg Neuts % (Manual) Lymphocytes % (Manual) Monocytes % (Manual) Seg Neutrophils # Seg Neutrophils # Man Lymphocytes # (Manual) Monocytes # (Manual) PT INR APTT Fibrinogen D-Dimer ABG pH POC ABG pCO2 POC ABG pO2 ABG pO2 ABG HCO3 ABG O2 Saturation ABG Base Excess ABG Hemoglobin ABG Oxyhemoglobin Oxyhemoglobin Sodium 151 H Potassium 3.2 L Chloride 116.9 H Carbon Dioxide BUN 40 H Creatinine Glucose 208 H POC Glucose 204 H Lactic Acid Calcium 8.0 L Phosphorus 1.80 L D Magnesium AST ALT Alkaline Phosphatase C-Reactive Protein Total Protein Albumin Triglycerides Ur Specific [place] Urine Creatinine Crossmatch 06/23/21 06/23/21 06/24/21 16:11 23:47 04:00 WBC 16.9 H RBC 2.49 L Hgb 6.6 L Hct 20.3 L MCV MCH 26 L RDW 22.6 H Plt Count Lymph % (Auto) [place] % (Auto) Lymph # (Auto) [place] # (Auto) Seg Neutrophils % Seg Neuts % (Manual) Lymphocytes % (Manual) Monocytes % (Manual) Seg Neutrophils # Seg Neutrophils # Man Lymphocytes # (Manual) Monocytes # (Manual) PT INR APTT Fibrinogen D-Dimer ABG pH POC ABG pCO2 POC ABG pO2 ABG pO2 ABG HCO3 ABG O2 Saturation ABG Base Excess ABG Hemoglobin ABG Oxyhemoglobin Oxyhemoglobin Sodium Potassium Chloride Carbon Dioxide BUN Creatinine Glucose POC Glucose 228 H 189 H Lactic Acid Calcium Phosphorus Magnesium AST ALT Alkaline Phosphatase C-Reactive Protein Total Protein Albumin Triglycerides Ur Specific [place] Urine Creatinine Crossmatch 06/24/21 06/24/21 06/24/21 04:00 05:43 06:40 WBC RBC Hgb Hct MCV MCH RDW Plt Count Lymph % (Auto) [place] % (Auto) Lymph # (Auto) [place] # (Auto) Seg Neutrophils % Seg Neuts % (Manual) Lymphocytes % (Manual) Monocytes % (Manual) Seg Neutrophils # Seg Neutrophils # Man Lymphocytes # (Manual) Monocytes # (Manual) PT INR APTT Fibrinogen D-Dimer ABG pH POC ABG pCO2 POC ABG pO2 ABG pO2 ABG HCO3 ABG O2 Saturation ABG Base Excess ABG Hemoglobin ABG Oxyhemoglobin Oxyhemoglobin Sodium 148 H Potassium 3.2 L Chloride 115.6 H Carbon Dioxide BUN 35 H Creatinine Glucose 153 H POC Glucose 134 H Lactic Acid Calcium 7.9 L Phosphorus 2.40 L D Magnesium AST ALT Alkaline Phosphatase C-Reactive Protein Total Protein Albumin Triglycerides Ur Specific [place] Urine Creatinine Crossmatch See Detail 06/24/21 06/24/21 06/24/21 11:08 16:47 21:49 WBC RBC Hgb Hct MCV MCH RDW Plt Count Lymph % (Auto) [place] % (Auto) Lymph # (Auto) [place] # (Auto) Seg Neutrophils % Seg Neuts % (Manual) Lymphocytes % (Manual) Monocytes % (Manual) Seg Neutrophils # Seg Neutrophils # Man Lymphocytes # (Manual) Monocytes # (Manual) PT INR APTT Fibrinogen D-Dimer ABG pH POC ABG pCO2 POC ABG pO2 ABG pO2 ABG HCO3 ABG O2 Saturation ABG Base Excess ABG Hemoglobin ABG Oxyhemoglobin Oxyhemoglobin Sodium Potassium Chloride Carbon Dioxide BUN Creatinine Glucose POC Glucose 153 H 201 H 132 H Lactic Acid Calcium Phosphorus Magnesium AST ALT Alkaline Phosphatase C-Reactive Protein Total Protein Albumin Triglycerides Ur Specific [place] Urine Creatinine Crossmatch 06/24/21 06/25/21 06/25/21 23:24 05:30 09:00 WBC RBC Hgb 8.3 L Hct 27.0 L MCV MCH RDW Plt Count Lymph % (Auto) [place] % (Auto) Lymph # (Auto) [place] # (Auto) Seg Neutrophils % Seg Neuts % (Manual) Lymphocytes % (Manual) Monocytes % (Manual) Seg Neutrophils # Seg Neutrophils # Man Lymphocytes # (Manual) Monocytes # (Manual) PT INR APTT Fibrinogen D-Dimer ABG pH POC ABG pCO2 POC ABG pO2 ABG pO2 ABG HCO3 ABG O2 Saturation ABG Base Excess ABG Hemoglobin ABG Oxyhemoglobin Oxyhemoglobin Sodium Potassium Chloride Carbon Dioxide BUN Creatinine Glucose POC Glucose 170 H 151 H Lactic Acid Calcium Phosphorus Magnesium AST ALT Alkaline Phosphatase C-Reactive Protein Total Protein Albumin Triglycerides Ur Specific [place] Urine Creatinine Crossmatch 06/25/21 06/25/21 06/25/21 11:29 14:24 16:48 WBC RBC Hgb 8.5 L Hct 27.5 L MCV MCH RDW Plt Count Lymph % (Auto) [place] % (Auto) Lymph # (Auto) [place] # (Auto) Seg Neutrophils % Seg Neuts % (Manual) Lymphocytes % (Manual) Monocytes % (Manual) Seg Neutrophils # Seg Neutrophils # Man Lymphocytes # (Manual) Monocytes # (Manual) PT INR APTT Fibrinogen D-Dimer ABG pH POC ABG pCO2 POC ABG pO2 ABG pO2 ABG HCO3 ABG O2 Saturation ABG Base Excess ABG Hemoglobin ABG Oxyhemoglobin Oxyhemoglobin Sodium Potassium Chloride Carbon Dioxide BUN Creatinine Glucose POC Glucose 189 H 224 H Lactic Acid Calcium Phosphorus Magnesium AST ALT Alkaline Phosphatase C-Reactive Protein Total Protein Albumin Triglycerides Ur Specific [place] Urine Creatinine Crossmatch 06/25/21 06/25/21 06/25/21 23:39 Unknown Unknown WBC 16.5 H RBC 2.90 L Hgb 8.0 L Hct 23.8 L MCV MCH RDW 22.8 H Plt Count Lymph % (Auto) [place] % (Auto) Lymph # (Auto) [place] # (Auto) Seg Neutrophils % Seg Neuts % (Manual) Lymphocytes % (Manual) Monocytes % (Manual) Seg Neutrophils # Seg Neutrophils # Man Lymphocytes # (Manual) Monocytes # (Manual) PT INR APTT Fibrinogen D-Dimer ABG pH POC ABG pCO2 POC ABG pO2 ABG pO2 ABG HCO3 ABG O2 Saturation ABG Base Excess ABG Hemoglobin ABG Oxyhemoglobin Oxyhemoglobin Sodium 149 H Potassium Chloride 115.6 H Carbon Dioxide BUN 28 H Creatinine Glucose 157 H POC Glucose 187 H Lactic Acid Calcium 8.0 L Phosphorus Magnesium AST ALT Alkaline Phosphatase C-Reactive Protein Total Protein Albumin Triglycerides Ur Specific [place] Urine Creatinine Crossmatch 06/26/21 06/26/21 06/26/21 05:22 05:29 05:29 WBC 16.2 H RBC 3.03 L Hgb 8.0 L Hct 25.1 L MCV MCH 26 L RDW 23.2 H Plt Count Lymph % (Auto) [place] % (Auto) Lymph # (Auto) [place] # (Auto) Seg Neutrophils % Seg Neuts % (Manual) Lymphocytes % (Manual) Monocytes % (Manual) Seg Neutrophils # Seg Neutrophils # Man Lymphocytes # (Manual) Monocytes # (Manual) PT INR APTT Fibrinogen D-Dimer ABG pH POC ABG pCO2 POC ABG pO2 ABG pO2 ABG HCO3 ABG O2 Saturation ABG Base Excess ABG Hemoglobin ABG Oxyhemoglobin Oxyhemoglobin Sodium 150 H Potassium Chloride 114.8 H Carbon Dioxide BUN 29 H Creatinine Glucose 229 H POC Glucose 211 H Lactic Acid Calcium 8.2 L Phosphorus Magnesium AST ALT Alkaline Phosphatase C-Reactive Protein Total Protein Albumin Triglycerides Ur Specific [place] Urine Creatinine Crossmatch 06/26/21 06/26/21 06/26/21 11:05 15:59 22:00 WBC RBC Hgb Hct MCV MCH RDW Plt Count Lymph % (Auto) [place] % (Auto) Lymph # (Auto) [place] # (Auto) Seg Neutrophils % Seg Neuts % (Manual) Lymphocytes % (Manual) Monocytes % (Manual) Seg Neutrophils # Seg Neutrophils # Man Lymphocytes # (Manual) Monocytes # (Manual) PT INR APTT Fibrinogen D-Dimer ABG pH POC ABG pCO2 POC ABG pO2 ABG pO2 ABG HCO3 ABG O2 Saturation ABG Base Excess ABG Hemoglobin ABG Oxyhemoglobin Oxyhemoglobin Sodium Potassium Chloride Carbon Dioxide BUN Creatinine Glucose POC Glucose 213 H 222 H 161 H Lactic Acid Calcium Phosphorus Magnesium AST ALT Alkaline Phosphatase C-Reactive Protein Total Protein Albumin Triglycerides Ur Specific [place] Urine Creatinine Crossmatch 06/26/21 06/27/21 06/27/21 23:24 04:15 04:15 WBC 14.3 H RBC 2.96 L Hgb 8.1 L Hct 24.6 L MCV MCH 27 L RDW 23.0 H Plt Count Lymph % (Auto) [place] % (Auto) Lymph # (Auto) [place] # (Auto) Seg Neutrophils % Seg Neuts % (Manual) Lymphocytes % (Manual) Monocytes % (Manual) Seg Neutrophils # Seg Neutrophils # Man Lymphocytes # (Manual) Monocytes # (Manual) PT INR APTT Fibrinogen D-Dimer ABG pH POC ABG pCO2 POC ABG pO2 ABG pO2 ABG HCO3 ABG O2 Saturation ABG Base Excess ABG Hemoglobin ABG Oxyhemoglobin Oxyhemoglobin Sodium 150 H Potassium Chloride 113.8 H Carbon Dioxide BUN 26 H Creatinine Glucose 246 H POC Glucose 164 H Lactic Acid Calcium 7.8 L Phosphorus Magnesium AST ALT Alkaline Phosphatase C-Reactive Protein Total Protein Albumin Triglycerides Ur Specific [place] Urine Creatinine Crossmatch 06/27/21 06/27/21 06/27/21 05:44 11:07 16:06 WBC RBC Hgb Hct MCV MCH RDW Plt Count Lymph % (Auto) [place] % (Auto) Lymph # (Auto) [place] # (Auto) Seg Neutrophils % Seg Neuts % (Manual) Lymphocytes % (Manual) Monocytes % (Manual) Seg Neutrophils # Seg Neutrophils # Man Lymphocytes # (Manual) Monocytes # (Manual) PT INR APTT Fibrinogen D-Dimer ABG pH POC ABG pCO2 POC ABG pO2 ABG pO2 ABG HCO3 ABG O2 Saturation ABG Base Excess ABG Hemoglobin ABG Oxyhemoglobin Oxyhemoglobin Sodium Potassium Chloride Carbon Dioxide BUN Creatinine Glucose POC Glucose 226 H 204 H 224 H Lactic Acid Calcium Phosphorus Magnesium AST ALT Alkaline Phosphatase C-Reactive Protein Total Protein Albumin Triglycerides Ur Specific [place] Urine Creatinine Crossmatch 06/27/21 06/28/21 06/28/21 23:49 04:00 04:00 WBC 15.4 H RBC 3.05 L Hgb 8.2 L Hct 25.0 L MCV MCH 27 L RDW 22.6 H Plt Count Lymph % (Auto) [place] % (Auto) Lymph # (Auto) [place] # (Auto) Seg Neutrophils % Seg Neuts % (Manual) Lymphocytes % (Manual) Monocytes % (Manual) Seg Neutrophils # Seg Neutrophils # Man Lymphocytes # (Manual) Monocytes # (Manual) PT INR APTT Fibrinogen D-Dimer ABG pH POC ABG pCO2 POC ABG pO2 ABG pO2 ABG HCO3 ABG O2 Saturation ABG Base Excess ABG Hemoglobin ABG Oxyhemoglobin Oxyhemoglobin Sodium 152 H Potassium 3.0 L Chloride 114.9 H Carbon Dioxide BUN 24 H Creatinine Glucose 158 H POC Glucose 195 H Lactic Acid Calcium 8.1 L Phosphorus Magnesium AST ALT Alkaline Phosphatase C-Reactive Protein Total Protein Albumin Triglycerides Ur Specific [place] Urine Creatinine Crossmatch 06/28/21 06/28/21 06/28/21 05:05 11:47 17:21 WBC RBC Hgb Hct MCV MCH RDW Plt Count Lymph % (Auto) [place] % (Auto) Lymph # (Auto) [place] # (Auto) Seg Neutrophils % Seg Neuts % (Manual) Lymphocytes % (Manual) Monocytes % (Manual) Seg Neutrophils # Seg Neutrophils # Man Lymphocytes # (Manual) Monocytes # (Manual) PT INR APTT Fibrinogen D-Dimer ABG pH POC ABG pCO2 POC ABG pO2 ABG pO2 ABG HCO3 ABG O2 Saturation ABG Base Excess ABG Hemoglobin ABG Oxyhemoglobin Oxyhemoglobin Sodium Potassium Chloride Carbon Dioxide BUN Creatinine Glucose POC Glucose 121 H 164 H 166 H Lactic Acid Calcium Phosphorus Magnesium AST ALT Alkaline Phosphatase C-Reactive Protein Total Protein Albumin Triglycerides Ur Specific [place] Urine Creatinine Crossmatch 06/28/21 06/28/21 06/29/21 18:14 21:54 00:55 WBC RBC Hgb Hct MCV MCH RDW Plt Count Lymph % (Auto) [place] % (Auto) Lymph # (Auto) [place] # (Auto) Seg Neutrophils % Seg Neuts % (Manual) Lymphocytes % (Manual) Monocytes % (Manual) Seg Neutrophils # Seg Neutrophils # Man Lymphocytes # (Manual) Monocytes # (Manual) PT INR APTT Fibrinogen D-Dimer ABG pH POC ABG pCO2 POC ABG pO2 ABG pO2 ABG HCO3 ABG O2 Saturation ABG Base Excess ABG Hemoglobin ABG Oxyhemoglobin Oxyhemoglobin Sodium Potassium Chloride Carbon Dioxide BUN Creatinine Glucose POC Glucose 150 H 148 H 176 H Lactic Acid Calcium Phosphorus Magnesium AST ALT Alkaline Phosphatase C-Reactive Protein Total Protein Albumin Triglycerides Ur Specific [place] Urine Creatinine Crossmatch 06/29/21 06/29/21 06/29/21 04:00 04:00 05:20 WBC 15.3 H RBC 3.04 L Hgb 8.0 L Hct 25.0 L MCV MCH 26 L RDW 22.3 H Plt Count Lymph % (Auto) [place] % (Auto) Lymph # (Auto) [place] # (Auto) Seg Neutrophils % Seg Neuts % (Manual) Lymphocytes % (Manual) Monocytes % (Manual) Seg Neutrophils # Seg Neutrophils # Man Lymphocytes # (Manual) Monocytes # (Manual) PT INR APTT Fibrinogen D-Dimer ABG pH POC ABG pCO2 POC ABG pO2 ABG pO2 ABG HCO3 ABG O2 Saturation ABG Base Excess ABG Hemoglobin ABG Oxyhemoglobin Oxyhemoglobin Sodium Potassium 3.1 L Chloride 108.7 H Carbon Dioxide BUN 20 H Creatinine Glucose 194 H POC Glucose 185 H Lactic Acid Calcium 8.0 L Phosphorus Magnesium AST ALT Alkaline Phosphatase C-Reactive Protein Total Protein Albumin Triglycerides Ur Specific [place] Urine Creatinine Crossmatch 06/29/21 06/29/21 06/30/21 12:18 17:20 00:49 WBC RBC Hgb Hct MCV MCH RDW Plt Count Lymph % (Auto) [place] % (Auto) Lymph # (Auto) [place] # (Auto) Seg Neutrophils % Seg Neuts % (Manual) Lymphocytes % (Manual) Monocytes % (Manual) Seg Neutrophils # Seg Neutrophils # Man Lymphocytes # (Manual) Monocytes # (Manual) PT INR APTT Fibrinogen D-Dimer ABG pH POC ABG pCO2 POC ABG pO2 ABG pO2 ABG HCO3 ABG O2 Saturation ABG Base Excess ABG Hemoglobin ABG Oxyhemoglobin Oxyhemoglobin Sodium Potassium Chloride Carbon Dioxide BUN Creatinine Glucose POC Glucose 135 H 185 H 156 H Lactic Acid Calcium Phosphorus Magnesium AST ALT Alkaline Phosphatase C-Reactive Protein Total Protein Albumin Triglycerides Ur Specific [place] Urine Creatinine Crossmatch 06/30/21 06/30/21 06/30/21 04:25 04:25 08:14 WBC 13.0 H RBC 3.19 L Hgb 8.2 L Hct 26.2 L MCV MCH 26 L RDW 22.3 H Plt Count Lymph % (Auto) [place] % (Auto) Lymph # (Auto) [place] # (Auto) Seg Neutrophils % Seg Neuts % (Manual) 81.0 H Lymphocytes % (Manual) 10.0 L Monocytes % (Manual) 8.0 H Seg Neutrophils # Seg Neutrophils # Man 10.5 H Lymphocytes # (Manual) Monocytes # (Manual) 1.0 H PT INR APTT Fibrinogen D-Dimer ABG pH POC ABG pCO2 POC ABG pO2 ABG pO2 ABG HCO3 ABG O2 Saturation ABG Base Excess ABG Hemoglobin ABG Oxyhemoglobin Oxyhemoglobin Sodium Potassium 3.0 L Chloride Carbon Dioxide BUN 20 H Creatinine Glucose 104 H POC Glucose 119 H Lactic Acid Calcium 8.3 L Phosphorus Magnesium AST ALT Alkaline Phosphatase C-Reactive Protein Total Protein Albumin Triglycerides Ur Specific [place] Urine Creatinine Crossmatch 06/30/21 06/30/21 06/30/21 11:36 16:24 22:44 WBC RBC Hgb Hct MCV MCH RDW Plt Count Lymph % (Auto) [place] % (Auto) Lymph # (Auto) [place] # (Auto) Seg Neutrophils % Seg Neuts % (Manual) Lymphocytes % (Manual) Monocytes % (Manual) Seg Neutrophils # Seg Neutrophils # Man Lymphocytes # (Manual) Monocytes # (Manual) PT INR APTT Fibrinogen D-Dimer ABG pH POC ABG pCO2 POC ABG pO2 ABG pO2 ABG HCO3 ABG O2 Saturation ABG Base Excess ABG Hemoglobin ABG Oxyhemoglobin Oxyhemoglobin Sodium Potassium Chloride Carbon Dioxide BUN Creatinine Glucose POC Glucose 154 H 208 H 174 H Lactic Acid Calcium Phosphorus Magnesium AST ALT Alkaline Phosphatase C-Reactive Protein Total Protein Albumin Triglycerides Ur Specific [place] Urine Creatinine Crossmatch 07/01/21 07/01/21 07/01/21 05:29 05:29 05:54 WBC 11.9 H RBC 3.00 L Hgb 8.1 L Hct 24.4 L MCV MCH 27 L RDW 21.7 H Plt Count Lymph % (Auto) [place] % (Auto) Lymph # (Auto) [place] # (Auto) Seg Neutrophils % Seg Neuts % (Manual) Lymphocytes % (Manual) Monocytes % (Manual) Seg Neutrophils # Seg Neutrophils # Man Lymphocytes # (Manual) Monocytes # (Manual) PT INR APTT Fibrinogen D-Dimer ABG pH POC ABG pCO2 POC ABG pO2 ABG pO2 ABG HCO3 ABG O2 Saturation ABG Base Excess ABG Hemoglobin ABG Oxyhemoglobin Oxyhemoglobin Sodium Potassium Chloride Carbon Dioxide BUN Creatinine Glucose 177 H POC Glucose 170 H Lactic Acid Calcium Phosphorus Magnesium AST ALT Alkaline Phosphatase C-Reactive Protein Total Protein Albumin Triglycerides Ur Specific [place] Urine Creatinine Crossmatch 07/01/21 07/02/21 07/02/21 10:54 05:05 10:18 WBC RBC Hgb Hct MCV MCH RDW Plt Count Lymph % (Auto) [place] % (Auto) Lymph # (Auto) [place] # (Auto) Seg Neutrophils % Seg Neuts % (Manual) Lymphocytes % (Manual) Monocytes % (Manual) Seg Neutrophils # Seg Neutrophils # Man Lymphocytes # (Manual) Monocytes # (Manual) PT INR APTT Fibrinogen D-Dimer ABG pH 7.488 H POC ABG pCO2 POC ABG pO2 ABG pO2 97.2 H ABG HCO3 27.1 H ABG O2 Saturation ABG Base Excess 3.5 H ABG Hemoglobin 7.9 L ABG Oxyhemoglobin Oxyhemoglobin Sodium Potassium Chloride Carbon Dioxide BUN Creatinine Glucose POC Glucose 184 H 182 H Lactic Acid Calcium Phosphorus Magnesium AST ALT Alkaline Phosphatase C-Reactive Protein Total Protein Albumin Triglycerides Ur Specific [place] Urine Creatinine Crossmatch 07/02/21 07/02/21 07/02/21 12:14 16:18 22:27 WBC RBC Hgb Hct MCV MCH RDW Plt Count Lymph % (Auto) [place] % (Auto) Lymph # (Auto) [place] # (Auto) Seg Neutrophils % Seg Neuts % (Manual) Lymphocytes % (Manual) Monocytes % (Manual) Seg Neutrophils # Seg Neutrophils # Man Lymphocytes # (Manual) Monocytes # (Manual) PT INR APTT Fibrinogen D-Dimer ABG pH 7.199 L* POC ABG pCO2 POC ABG pO2 ABG pO2 104.5 H ABG HCO3 30.3 H ABG O2 Saturation ABG Base Excess ABG Hemoglobin 9.8 L ABG Oxyhemoglobin Oxyhemoglobin 94.6 L Sodium Potassium Chloride Carbon Dioxide BUN Creatinine Glucose POC Glucose 184 H 194 H Lactic Acid Calcium Phosphorus Magnesium AST ALT Alkaline Phosphatase C-Reactive Protein Total Protein Albumin Triglycerides Ur Specific [place] Urine Creatinine Crossmatch 07/03/21 07/03/21 07/03/21 09:47 10:44 11:24 WBC RBC 3.01 L Hgb 8.3 L Hct 24.3 L MCV MCH RDW 21.7 H Plt Count Lymph % (Auto) 8.4 L [place] % (Auto) Lymph # (Auto) 0.8 L [place] # (Auto) Seg Neutrophils % 80.6 H Seg Neuts % (Manual) Lymphocytes % (Manual) Monocytes % (Manual) Seg Neutrophils # Seg Neutrophils # Man Lymphocytes # (Manual) Monocytes # (Manual) PT INR APTT Fibrinogen D-Dimer ABG pH POC ABG pCO2 POC ABG pO2 ABG pO2 ABG HCO3 ABG O2 Saturation ABG Base Excess ABG Hemoglobin ABG Oxyhemoglobin Oxyhemoglobin Sodium Potassium 3.0 L Chloride Carbon Dioxide BUN Creatinine Glucose 200 H POC Glucose 180 H Lactic Acid Calcium 8.3 L Phosphorus Magnesium AST ALT Alkaline Phosphatase C-Reactive Protein Total Protein Albumin Triglycerides Ur Specific [place] Urine Creatinine Crossmatch 07/03/21 07/03/21 07/03/21 16:34 22:14 22:15 WBC RBC Hgb Hct MCV MCH RDW Plt Count Lymph % (Auto) [place] % (Auto) Lymph # (Auto) [place] # (Auto) Seg Neutrophils % Seg Neuts % (Manual) Lymphocytes % (Manual) Monocytes % (Manual) Seg Neutrophils # Seg Neutrophils # Man Lymphocytes # (Manual) Monocytes # (Manual) PT INR APTT Fibrinogen D-Dimer ABG pH POC ABG pCO2 POC ABG pO2 ABG pO2 ABG HCO3 ABG O2 Saturation ABG Base Excess ABG Hemoglobin ABG Oxyhemoglobin Oxyhemoglobin Sodium Potassium Chloride Carbon Dioxide BUN Creatinine Glucose POC Glucose 165 H 174 H 180 H Lactic Acid Calcium Phosphorus Magnesium AST ALT Alkaline Phosphatase C-Reactive Protein Total Protein Albumin Triglycerides Ur Specific [place] Urine Creatinine Crossmatch 07/04/21 07/04/21 07/04/21 00:28 01:44 05:07 WBC RBC Hgb Hct MCV MCH RDW Plt Count Lymph % (Auto) [place] % (Auto) Lymph # (Auto) [place] # (Auto) Seg Neutrophils % Seg Neuts % (Manual) Lymphocytes % (Manual) Monocytes % (Manual) Seg Neutrophils # Seg Neutrophils # Man Lymphocytes # (Manual) Monocytes # (Manual) PT INR APTT Fibrinogen D-Dimer ABG pH POC ABG pCO2 POC ABG pO2 ABG pO2 107.7 H ABG HCO3 26.7 H ABG O2 Saturation ABG Base Excess ABG Hemoglobin 7.5 L ABG Oxyhemoglobin Oxyhemoglobin Sodium Potassium Chloride Carbon Dioxide BUN Creatinine Glucose POC Glucose 246 H 179 H Lactic Acid Calcium Phosphorus Magnesium AST ALT Alkaline Phosphatase C-Reactive Protein Total Protein Albumin Triglycerides Ur Specific [place] Urine Creatinine Crossmatch 07/04/21 07/04/21 07/04/21 05:13 05:13 10:52 WBC RBC 3.12 L Hgb 8.5 L Hct 25.2 L MCV MCH 27 L RDW 21.3 H Plt Count Lymph % (Auto) 6.1 L [place] % (Auto) Lymph # (Auto) 0.6 L [place] # (Auto) Seg Neutrophils % 85.0 H Seg Neuts % (Manual) Lymphocytes % (Manual) Monocytes % (Manual) Seg Neutrophils # 8.0 H Seg Neutrophils # Man Lymphocytes # (Manual) Monocytes # (Manual) PT INR APTT Fibrinogen D-Dimer ABG pH POC ABG pCO2 POC ABG pO2 ABG pO2 ABG HCO3 ABG O2 Saturation ABG Base Excess ABG Hemoglobin ABG Oxyhemoglobin Oxyhemoglobin Sodium Potassium 3.4 L Chloride Carbon Dioxide BUN Creatinine Glucose 205 H POC Glucose 146 H Lactic Acid Calcium Phosphorus Magnesium AST ALT Alkaline Phosphatase C-Reactive Protein Total Protein Albumin Triglycerides Ur Specific [place] Urine Creatinine Crossmatch 07/04/21 07/04/21 07/05/21 16:22 23:52 04:38 WBC RBC Hgb Hct MCV MCH RDW Plt Count Lymph % (Auto) [place] % (Auto) Lymph # (Auto) [place] # (Auto) Seg Neutrophils % Seg Neuts % (Manual) Lymphocytes % (Manual) Monocytes % (Manual) Seg Neutrophils # Seg Neutrophils # Man Lymphocytes # (Manual) Monocytes # (Manual) PT INR APTT Fibrinogen D-Dimer ABG pH POC ABG pCO2 POC ABG pO2 ABG pO2 ABG HCO3 ABG O2 Saturation ABG Base Excess ABG Hemoglobin ABG Oxyhemoglobin Oxyhemoglobin Sodium Potassium 3.0 L Chloride Carbon Dioxide BUN 18 H Creatinine Glucose 174 H POC Glucose 154 H 193 H Lactic Acid Calcium Phosphorus 2.20 L Magnesium AST ALT Alkaline Phosphatase C-Reactive Protein Total Protein Albumin Triglycerides Ur Specific [place] Urine Creatinine Crossmatch 07/05/21 07/05/21 07/05/21 04:38 05:15 12:35 WBC RBC 2.95 L Hgb 7.8 L Hct 23.9 L MCV MCH 27 L RDW 21.0 H Plt Count Lymph % (Auto) [place] % (Auto) Lymph # (Auto) [place] # (Auto) Seg Neutrophils % Seg Neuts % (Manual) Lymphocytes % (Manual) Monocytes % (Manual) Seg Neutrophils # Seg Neutrophils # Man Lymphocytes # (Manual) Monocytes # (Manual) PT INR APTT Fibrinogen D-Dimer ABG pH POC ABG pCO2 POC ABG pO2 ABG pO2 ABG HCO3 ABG O2 Saturation ABG Base Excess ABG Hemoglobin ABG Oxyhemoglobin Oxyhemoglobin Sodium Potassium Chloride Carbon Dioxide BUN Creatinine Glucose POC Glucose 163 H 121 H Lactic Acid Calcium Phosphorus Magnesium AST ALT Alkaline Phosphatase C-Reactive Protein Total Protein Albumin Triglycerides Ur Specific [place] Urine Creatinine Crossmatch 07/05/21 07/05/21 07/05/21 18:27 21:05 23:11 WBC RBC Hgb Hct MCV MCH RDW Plt Count Lymph % (Auto) [place] % (Auto) Lymph # (Auto) [place] # (Auto) Seg Neutrophils % Seg Neuts % (Manual) Lymphocytes % (Manual) Monocytes % (Manual) Seg Neutrophils # Seg Neutrophils # Man Lymphocytes # (Manual) Monocytes # (Manual) PT INR APTT Fibrinogen D-Dimer ABG pH POC ABG pCO2 POC ABG pO2 ABG pO2 ABG HCO3 ABG O2 Saturation ABG Base Excess ABG Hemoglobin ABG Oxyhemoglobin Oxyhemoglobin Sodium Potassium Chloride Carbon Dioxide BUN Creatinine Glucose POC Glucose 183 H 170 H 184 H Lactic Acid Calcium Phosphorus Magnesium AST ALT Alkaline Phosphatase C-Reactive Protein Total Protein Albumin Triglycerides Ur Specific [place] Urine Creatinine Crossmatch 07/06/21 07/06/21 07/06/21 04:39 05:13 12:12 WBC RBC Hgb Hct MCV MCH RDW Plt Count Lymph % (Auto) [place] % (Auto) Lymph # (Auto) [place] # (Auto) Seg Neutrophils % Seg Neuts % (Manual) Lymphocytes % (Manual) Monocytes % (Manual) Seg Neutrophils # Seg Neutrophils # Man Lymphocytes # (Manual) Monocytes # (Manual) PT INR APTT Fibrinogen D-Dimer ABG pH POC ABG pCO2 POC ABG pO2 ABG pO2 ABG HCO3 ABG O2 Saturation ABG Base Excess ABG Hemoglobin ABG Oxyhemoglobin Oxyhemoglobin Sodium Potassium 3.4 L Chloride Carbon Dioxide BUN Creatinine Glucose 180 H POC Glucose 183 H 153 H Lactic Acid Calcium Phosphorus Magnesium AST ALT Alkaline Phosphatase C-Reactive Protein Total Protein Albumin Triglycerides Ur Specific [place] Urine Creatinine Crossmatch 07/06/21 07/06/21 07/07/21 17:30 21:44 00:22 WBC RBC Hgb Hct MCV MCH RDW Plt Count Lymph % (Auto) [place] % (Auto) Lymph # (Auto) [place] # (Auto) Seg Neutrophils % Seg Neuts % (Manual) Lymphocytes % (Manual) Monocytes % (Manual) Seg Neutrophils # Seg Neutrophils # Man Lymphocytes # (Manual) Monocytes # (Manual) PT INR APTT Fibrinogen D-Dimer ABG pH POC ABG pCO2 POC ABG pO2 ABG pO2 ABG HCO3 ABG O2 Saturation ABG Base Excess ABG Hemoglobin ABG Oxyhemoglobin Oxyhemoglobin Sodium Potassium Chloride Carbon Dioxide BUN Creatinine Glucose POC Glucose 166 H 155 H 188 H Lactic Acid Calcium Phosphorus Magnesium AST ALT Alkaline Phosphatase C-Reactive Protein Total Protein Albumin Triglycerides Ur Specific [place] Urine Creatinine Crossmatch 07/07/21 07/07/21 07/07/21 04:10 05:48 07:39 WBC RBC Hgb Hct MCV MCH RDW Plt Count Lymph % (Auto) [place] % (Auto) Lymph # (Auto) [place] # (Auto) Seg Neutrophils % Seg Neuts % (Manual) Lymphocytes % (Manual) Monocytes % (Manual) Seg Neutrophils # Seg Neutrophils # Man Lymphocytes # (Manual) Monocytes # (Manual) PT INR APTT Fibrinogen D-Dimer ABG pH POC ABG pCO2 POC ABG pO2 ABG pO2 ABG HCO3 ABG O2 Saturation ABG Base Excess ABG Hemoglobin ABG Oxyhemoglobin Oxyhemoglobin Sodium Potassium 3.1 L Chloride Carbon Dioxide BUN Creatinine Glucose 138 H POC Glucose 141 H 147 H Lactic Acid Calcium Phosphorus 2.40 L Magnesium AST ALT Alkaline Phosphatase C-Reactive Protein Total Protein Albumin Triglycerides Ur Specific [place] Urine Creatinine Crossmatch 07/07/21 11:17 WBC RBC Hgb Hct MCV MCH RDW Plt Count Lymph % (Auto) [place] % (Auto) Lymph # (Auto) [place] # (Auto) Seg Neutrophils % Seg Neuts % (Manual) Lymphocytes % (Manual) Monocytes % (Manual) Seg Neutrophils # Seg Neutrophils # Man Lymphocytes # (Manual) Monocytes # (Manual) PT INR APTT Fibrinogen D-Dimer ABG pH POC ABG pCO2 POC ABG pO2 ABG pO2 ABG HCO3 ABG O2 Saturation ABG Base Excess ABG Hemoglobin ABG Oxyhemoglobin Oxyhemoglobin Sodium Potassium Chloride Carbon Dioxide BUN Creatinine Glucose POC Glucose 161 H Lactic Acid Calcium Phosphorus Magnesium AST ALT Alkaline Phosphatase C-Reactive Protein Total Protein Albumin Triglycerides Ur Specific [place] Urine Creatinine Crossmatch
[2021-07-07] MEDS: GABAPENTIN 100 MG CAP PO SCH ×2 (14:50→21:35)
[2021-07-07] MEDS: traZODone 50 MG TAB PO SCH (21:34)
[2021-07-07] MEDS: ENOXAPARIN 40 MG/0.4 ML INJ SUB-Q SCH (21:34)
[2021-07-07] MEDS: MELATONIN 5 MG TAB PO SCH (21:35)
[2021-07-07] MEDS: INSULIN GLARGINE 100 UNITS/ML SUB-Q SCH (23:55)
[2021-07-08 05:38] LABS: Hematocrit 25.1 % (30.3-42.9); Hemoglobin 8.3 gm/dl (10.1-14.3); Mean Corpuscular HGB Conc 33 % (30-34); Mean Corpuscular Volume 80 fl (79-97); Platelet Count 284 K/mm3 (140-440); Red Blood Count 3.16 M/mm3 (3.65-5.03)
[2021-07-08 05:59] LABS: Blood Urea Nitrogen 13 mg/dL (7-17); Calcium 8.4 mg/dL (8.4-10.2); Hemolysis Index 12
[2021-07-08 06:02] LABS: BUN/Creatinine Ratio 22
[2021-07-08] MEDS: INSULIN LISPRO 100 UNIT/ML SUB-Q SCH ×4 (06:38→23:50)
[2021-07-08] MEDS: hydrALAZINE 100 MG TAB FEEDTUBE SCH ×3 (06:38→21:35)
[2021-07-08] MEDS: GABAPENTIN 100 MG CAP PO SCH ×3 (09:53→21:35)
[2021-07-08] MEDS: amLODIPine 5 MG TAB PO SCH (09:53)
[2021-07-08] MEDS: LIDOCAINE 5% 1 EACH PATCH TD SCH (09:53)
[2021-07-08] MEDS: FAMOTIDINE 20 MG TAB FEEDTUBE SCH ×2 (09:54→21:35)
--- NOTE | 2021-07-08 10:19 | Consultation ---
History of Present Illness Consult date: 07/08/21 Reason for Consult: Intubated with difficulty breathing since 06/11/2021 History of present illness: 06/11/2021 Chief complaint: Swelling of the mouth and difficulty breathing History of present illness: 76-year-old a past medical history of hypertension, type 2 diabetes, gout and on Coumadin for unknown reasons comes into the hospital for swelling of the tongue and the submandibular area and the whole throat. Patient was fine until 11 AM. Woke up with swelling. Patient has a history of some dental caries. No significant pain or fever. Swelling of the tongue and the mouth causing her difficulty breathing. CAT scan of the head and neck was done in the emergency room which confirmed Gael's angina--(swelling of the sublingual and submaxillary space in the bilateral compartments). Anesthesia was called for intubation because it is going to be difficult intubation. Anesthesia attempted intubation but could not be done. Surgery was requested to the emergency crico thyroidectomy. Cricothyroidotomy was attempted in the emergency room and then the patient was taken to the operating room for tracheostomy. Patient also developed pneumothorax during the intubation procedure. Patient bleeding excessively because of her being on Coumadin and INR is around 8. Multiple FFP's and vitamin K significant to bring the pro time down. Patient has emergent tracheostomy and chest tube for pneumothorax. Discussed with Dr. Manzanares the whole case. He agrees with FFP's and IV vitamin K. He will place a larger chest tube in the morning.. Patient on vent support. - Past Medical History --Hypertension: Yes --Diabetes: Yes (TYPE 2) --Arthritis: Yes --Psychiatric Treatment: Yes (DEPRESSION) --Additional medical history: GOUT - Surgical History --Hysterectomy, -- STENT IN RT. LEG - Social History --Smoking Status: Never Smoker --Substance Use Type: None -Family history not known Review of Systems ROS: Stated complaint: SWOLLEN TONGUE Other details as noted in HPI Comment: All other systems reviewed and negative Past History Past Medical History: diabetes, hypertension, PVD, other (obesity gout) Past Surgical History: Other (unable to obtain) Social history: other (unable to obtain) Family history: other (unable to obtain) Medications and Allergies Allergies Allergy/AdvReac Type Severity Reaction Status Date / Time No Known Allergies Allergy Verified 06/11/21 13:50 Home Medications Medication Instructions Recorded Confirmed Last Taken Type Trazodone HCl 150 mg ONCE 06/30/13 07/03/21 06/09/21 History Valsartan/Hydrochlorothiazide 5 mg ONCE 06/30/13 07/03/21 06/09/21 History [Valsartan-Hctz 80-12.5 mg] Warfarin [Coumadin] 5 mg PO ONCE 06/30/13 07/03/21 06/09/21 History allopurinoL [Zyloprim] 300 mg ONCE 06/30/13 07/03/21 06/09/21 History glipiZIDE [glipiZIDE ER] 5 mg ONCE 06/30/13 07/03/21 06/09/21 History Cetirizine HCl/Pseudoephedrine 1 each PO DAILY #30 tab.[id number] 07/03/20 07/03/21 06/09/21 Rx [Zyrtec-D Tablet] Fluticasone [Flonase] 1 spray NS QDAY #1 bottle 07/03/20 07/03/21 06/09/21 Rx Active Meds: Active Medications Hydrocodone Bitart/Acetaminophen (Hydrocodone/Acetaminophen 5-325 Mg Tab) 1 each PO Q6H PRN PRN Reason: Pain, Moderate (4-6) Last Admin: 07/07/21 21:33 Dose: 1 each Amlodipine Besylate (Amlodipine 5 Mg Tab) 5 mg PO QDAY [facility] Last Admin: 07/08/21 09:53 Dose: 5 mg Lipase/Protease/Amylase (Lipase 10,500/Protease 25,000/Amylase 43,750 (Units) Dr Melgar) 1 each FEEDTUBE PRN PRN PRN Reason: For Clogged Feeding Tube Atorvastatin Calcium (Atorvastatin 20 Mg Tab) 20 mg PO QHS [facility] Last Admin: 07/07/21 21:35 Dose: 20 mg Baclofen (Baclofen 10 Mg Tab) 10 mg PO BID PRN PRN Reason: Muscle pain Enoxaparin Sodium (Enoxaparin 40 Mg/0.4 Ml Inj) 40 mg SUB-Q QDAY@2200 [facility]; Protocol Last Admin: 07/07/21 21:34 Dose: 40 mg Famotidine (Famotidine 20 Mg Tab) 20 mg FEEDTUBE BID [facility] Last Admin: 07/08/21 09:54 Dose: 20 mg Gabapentin (Gabapentin 100 Mg Cap) 100 mg PO TID [facility] Last Admin: 07/08/21 09:53 Dose: 100 mg Hydralazine HCl (Hydralazine 100 Mg Tab) 100 mg FEEDTUBE Q8HR [facility] Last Admin: 07/08/21 06:38 Dose: 100 mg Insulin Glargine (Insulin Glargine 100 Units/Ml) 30 units SUB-Q QHS [facility] Last Admin: 07/07/21 23:55 Dose: 30 units Insulin Human Lispro (Insulin Lispro 100 Unit/Ml) 0 unit SUB-Q Q6HR [facility]; Protocol Last Admin: 07/08/21 06:38 Dose: 3 unit Labetalol HCl (Labetalol 20 Mg/4 Ml Inj) 10 mg IV Q4HR PRN PRN Reason: Hypertension Last Admin: 07/07/21 15:54 Dose: 10 mg Lidocaine (Lidocaine 5% 1 Each Patch) 2 each TD QDAY [facility] Last Admin: 07/08/21 09:53 Dose: 2 each Melatonin (Melatonin 5 Mg Tab) 5 mg PO QHS [facility] Last Admin: 07/07/21 21:35 Dose: 5 mg Metoclopramide HCl (Metoclopramide 10 Mg/2 Ml Inj) 10 mg IV Q6H PRN PRN Reason: Nausea And Vomiting Ondansetron HCl (Ondansetron 4 Mg/2 Ml Inj) 4 mg IV Q3H PRN PRN Reason: Nausea And Vomiting Simple Syrup (Simple Syrup 15 Ml) 15 ml FEEDTUBE PRN PRN PRN Reason: Hypoglycemia Simple Syrup (Simple Syrup 15 Ml) 30 ml FEEDTUBE PRN PRN PRN Reason: Hypoglycemia Sodium Bicarbonate (Sodium Bicarbonate 325 Mg Tab) 325 mg FEEDTUBE PRN PRN PRN Reason: For Clogged Feeding Tube Sodium Chloride (Sodium Chloride 0.9% 10 Ml Flush Syringe) 10 ml IV BID [facility] Last Admin: 07/08/21 09:54 Dose: 10 ml Sodium Chloride (Sodium Chloride 0.9% 10 Ml Flush Syringe) 10 ml IV PRN PRN PRN Reason: LINE FLUSH Trazodone HCl (Trazodone 50 Mg Tab) 100 mg PO QHS [facility] Last Admin: 07/07/21 21:34 Dose: 100 mg Physical Examination - Vital Signs Vital Signs: Vital Signs Temp Pulse Resp BP Pulse Ox 98.3 F 72 16 157/88 98 06/11/21 13:47 06/11/21 13:47 06/11/21 13:47 06/11/21 13:47 06/11/21 13:47 - Constitutional General appearance: comfortable - EENT EENT: Present: PERRL, mucous membranes moist - Respiratory Respiratory: Present: chest non-tender, lungs clear, rhonchi - Cardiovascular Cardiovascular: Present: regular rate, normal S1, normal S2 Extremities: Present: no peripheral edema bilatateraly, no clubbing, cyanosis - Gastrointestinal Gastrointestinal: Present: normoactive bowel sounds - Integumentary Integumentary: Present: normal - Neurologic Cranial nerve examination: PERRL, EOMI, intact, other (neck flexor and extensor are intact , can open and close mouth and blow checks, ) Speech examination: other (tracheostomy can whisper) Detailed motor examination: other (more of a proximal motor weakness upper and lower 3+/5 planter is down , with decresed reflexes bilteral knees, ) Results - Laboratory Findings CBC and BMP: 07/08/21 04:20 07/08/21 04:20 Abnormal Lab Findings: Abnormal Labs 06/11/21 06/11/21 06/11/21 15:23 15:23 19:20 WBC 12.0 H RBC Hgb Hct MCV 72 L MCH 21 L RDW 17.5 H Plt Count Lymph % (Auto) 12.9 L [place] % (Auto) 8.6 H Lymph # (Auto) [place] # (Auto) 1.0 H Seg Neutrophils % 77.4 H Seg Neuts % (Manual) Lymphocytes % (Manual) Monocytes % (Manual) Seg Neutrophils # 9.3 H Seg Neutrophils # Man Lymphocytes # (Manual) Monocytes # (Manual) PT INR APTT Fibrinogen D-Dimer ABG pH POC ABG pCO2 POC ABG pO2 ABG pO2 ABG HCO3 ABG O2 Saturation ABG Base Excess ABG Hemoglobin ABG Oxyhemoglobin Oxyhemoglobin Sodium Potassium Chloride Carbon Dioxide BUN Creatinine Glucose 144 H POC Glucose Lactic Acid Calcium Phosphorus Magnesium AST ALT Alkaline Phosphatase C-Reactive Protein Total Protein Albumin Triglycerides Ur Specific [place] Urine Creatinine Crossmatch See Detail 06/11/21 06/11/21 06/11/21 19:29 19:29 23:21 WBC 15.8 H RBC Hgb 9.4 L Hct MCV 72 L MCH 22 L RDW 17.4 H Plt Count Lymph % (Auto) 9.2 L [place] % (Auto) Lymph # (Auto) [place] # (Auto) Seg Neutrophils % 89.0 H Seg Neuts % (Manual) Lymphocytes % (Manual) Monocytes % (Manual) Seg Neutrophils # 14.0 H Seg Neutrophils # Man Lymphocytes # (Manual) Monocytes # (Manual) PT 72.9 H INR 8.18 H* APTT 71.7 H* Fibrinogen D-Dimer ABG pH POC ABG pCO2 POC ABG pO2 ABG pO2 ABG HCO3 ABG O2 Saturation ABG Base Excess ABG Hemoglobin ABG Oxyhemoglobin Oxyhemoglobin Sodium 149 H D Potassium Chloride 124.3 H Carbon Dioxide 8 L* D BUN Creatinine 0.3 L Glucose 628 H* POC Glucose Lactic Acid Calcium 2.4 L* D Phosphorus Magnesium AST ALT < 5 L Alkaline Phosphatase 19 L C-Reactive Protein Total Protein 1.6 L D Albumin 0.8 L Triglycerides Ur Specific [place] Urine Creatinine Crossmatch 06/11/21 06/11/21 06/11/21 23:21 23:22 23:42 WBC RBC Hgb Hct MCV MCH 27 L RDW 22.2 H Plt Count 131 L Lymph % (Auto) [place] % (Auto) Lymph # (Auto) [place] # (Auto) Seg Neutrophils % Seg Neuts % (Manual) Lymphocytes % (Manual) Monocytes % (Manual) Seg Neutrophils # Seg Neutrophils # Man Lymphocytes # (Manual) Monocytes # (Manual) PT 46.3 H INR 4.55 H APTT 54.8 H Fibrinogen D-Dimer ABG pH POC ABG pCO2 POC ABG pO2 325.9 H ABG pO2 ABG HCO3 ABG O2 Saturation ABG Base Excess ABG Hemoglobin 8.0 L ABG Oxyhemoglobin 99.0 H Oxyhemoglobin Sodium Potassium Chloride Carbon Dioxide BUN Creatinine Glucose POC Glucose Lactic Acid Calcium Phosphorus Magnesium AST ALT Alkaline Phosphatase C-Reactive Protein Total Protein Albumin Triglycerides Ur Specific [place] Urine Creatinine Crossmatch 06/12/21 06/12/21 06/12/21 01:45 01:45 01:45 WBC 21.6 H RBC 3.04 L Hgb 6.7 L D Hct 22.4 L D MCV 74 L MCH 22 L RDW 18.9 H Plt Count Lymph % (Auto) [place] % (Auto) Lymph # (Auto) [place] # (Auto) Seg Neutrophils % Seg Neuts % (Manual) 76.0 H Lymphocytes % (Manual) 2.0 L Monocytes % (Manual) 8.0 H Seg Neutrophils # Seg Neutrophils # Man 16.4 H Lymphocytes # (Manual) 0.4 L Monocytes # (Manual) 1.7 H PT 25.4 H INR 2.10 H APTT Fibrinogen D-Dimer ABG pH POC ABG pCO2 POC ABG pO2 ABG pO2 ABG HCO3 ABG O2 Saturation ABG Base Excess ABG Hemoglobin ABG Oxyhemoglobin Oxyhemoglobin Sodium Potassium 5.6 H D Chloride Carbon Dioxide 20 L D BUN Creatinine Glucose 368 H POC Glucose Lactic Acid Calcium 7.1 L D Phosphorus Magnesium AST ALT Alkaline Phosphatase C-Reactive Protein Total Protein 5.3 L D Albumin 3.1 L Triglycerides Ur Specific [place] Urine Creatinine Crossmatch 06/12/21 06/12/21 06/12/21 02:05 04:41 11:05 WBC 14.6 H RBC 3.52 L Hgb 8.5 L Hct 27.7 L MCV MCH 24 L RDW 20.9 H Plt Count Lymph % (Auto) [place] % (Auto) Lymph # (Auto) [place] # (Auto) Seg Neutrophils % Seg Neuts % (Manual) Lymphocytes % (Manual) Monocytes % (Manual) Seg Neutrophils # Seg Neutrophils # Man Lymphocytes # (Manual) Monocytes # (Manual) PT INR APTT Fibrinogen D-Dimer ABG pH POC ABG pCO2 POC ABG pO2 224.6 H ABG pO2 ABG HCO3 ABG O2 Saturation ABG Base Excess ABG Hemoglobin 7.3 L ABG Oxyhemoglobin 98.7 H Oxyhemoglobin Sodium Potassium Chloride Carbon Dioxide BUN Creatinine Glucose POC Glucose 308 H Lactic Acid Calcium Phosphorus Magnesium AST ALT Alkaline Phosphatase C-Reactive Protein Total Protein Albumin Triglycerides Ur Specific [place] Urine Creatinine Crossmatch 06/12/21 06/12/21 06/12/21 11:05 11:05 12:18 WBC RBC Hgb Hct MCV MCH RDW Plt Count Lymph % (Auto) [place] % (Auto) Lymph # (Auto) [place] # (Auto) Seg Neutrophils % Seg Neuts % (Manual) Lymphocytes % (Manual) Monocytes % (Manual) Seg Neutrophils # Seg Neutrophils # Man Lymphocytes # (Manual) Monocytes # (Manual) PT 16.8 H INR 1.23 H APTT Fibrinogen D-Dimer ABG pH POC ABG pCO2 POC ABG pO2 ABG pO2 ABG HCO3 ABG O2 Saturation ABG Base Excess ABG Hemoglobin ABG Oxyhemoglobin Oxyhemoglobin Sodium Potassium Chloride Carbon Dioxide BUN 24 H Creatinine Glucose 324 H POC Glucose 281 H Lactic Acid Calcium 7.5 L Phosphorus Magnesium AST 70 H ALT 57 H Alkaline Phosphatase C-Reactive Protein Total Protein 6.0 L Albumin 3.6 L Triglycerides Ur Specific [place] Urine Creatinine Crossmatch 06/12/21 06/12/21 06/12/21 17:00 17:00 17:00 WBC RBC Hgb 7.5 L Hct 24.0 L MCV MCH RDW Plt Count Lymph % (Auto) [place] % (Auto) Lymph # (Auto) [place] # (Auto) Seg Neutrophils % Seg Neuts % (Manual) Lymphocytes % (Manual) Monocytes % (Manual) Seg Neutrophils # Seg Neutrophils # Man Lymphocytes # (Manual) Monocytes # (Manual) PT 16.0 H INR 1.16 H APTT Fibrinogen D-Dimer ABG pH POC ABG pCO2 POC ABG pO2 ABG pO2 ABG HCO3 ABG O2 Saturation ABG Base Excess ABG Hemoglobin ABG Oxyhemoglobin Oxyhemoglobin Sodium Potassium Chloride Carbon Dioxide BUN Creatinine Glucose POC Glucose Lactic Acid Calcium Phosphorus Magnesium AST ALT Alkaline Phosphatase C-Reactive Protein Total Protein Albumin Triglycerides Ur Specific [place] 1.035 H Urine Creatinine Crossmatch 06/12/21 06/12/21 06/12/21 18:06 23:00 23:05 WBC RBC Hgb 7.6 L Hct 23.5 L MCV MCH RDW Plt Count Lymph % (Auto) [place] % (Auto) Lymph # (Auto) [place] # (Auto) Seg Neutrophils % Seg Neuts % (Manual) Lymphocytes % (Manual) Monocytes % (Manual) Seg Neutrophils # Seg Neutrophils # Man Lymphocytes # (Manual) Monocytes # (Manual) PT INR APTT Fibrinogen D-Dimer ABG pH POC ABG pCO2 POC ABG pO2 ABG pO2 ABG HCO3 ABG O2 Saturation ABG Base Excess ABG Hemoglobin ABG Oxyhemoglobin Oxyhemoglobin Sodium Potassium Chloride Carbon Dioxide BUN Creatinine Glucose POC Glucose 257 H 300 H Lactic Acid Calcium Phosphorus Magnesium AST ALT Alkaline Phosphatase C-Reactive Protein Total Protein Albumin Triglycerides Ur Specific [place] Urine Creatinine Crossmatch 06/13/21 06/13/21 06/13/21 04:31 05:19 07:30 WBC RBC Hgb 6.8 L Hct 21.7 L MCV MCH RDW Plt Count Lymph % (Auto) [place] % (Auto) Lymph # (Auto) [place] # (Auto) Seg Neutrophils % Seg Neuts % (Manual) Lymphocytes % (Manual) Monocytes % (Manual) Seg Neutrophils # Seg Neutrophils # Man Lymphocytes # (Manual) Monocytes # (Manual) PT INR APTT Fibrinogen D-Dimer ABG pH 7.541 H POC ABG pCO2 25.6 L POC ABG pO2 138.8 H ABG pO2 ABG HCO3 ABG O2 Saturation ABG Base Excess ABG Hemoglobin 7.3 L ABG Oxyhemoglobin 98.1 H Oxyhemoglobin Sodium Potassium Chloride Carbon Dioxide BUN Creatinine Glucose POC Glucose 286 H Lactic Acid Calcium Phosphorus Magnesium AST ALT Alkaline Phosphatase C-Reactive Protein Total Protein Albumin Triglycerides Ur Specific [place] Urine Creatinine Crossmatch 06/13/21 06/13/21 06/13/21 07:30 12:04 14:50 WBC RBC Hgb Hct MCV MCH RDW Plt Count Lymph % (Auto) [place] % (Auto) Lymph # (Auto) [place] # (Auto) Seg Neutrophils % Seg Neuts % (Manual) Lymphocytes % (Manual) Monocytes % (Manual) Seg Neutrophils # Seg Neutrophils # Man Lymphocytes # (Manual) Monocytes # (Manual) PT INR APTT Fibrinogen D-Dimer ABG pH 7.039 L* 7.182 L* POC ABG pCO2 POC ABG pO2 ABG pO2 63.1 L ABG HCO3 17.4 L ABG O2 Saturation 73.4 L ABG Base Excess -12.6 L -7.1 L ABG Hemoglobin 7.7 L 6.9 L ABG Oxyhemoglobin Oxyhemoglobin 71.8 L 93.5 L Sodium Potassium Chloride 108.9 H Carbon Dioxide BUN 28 H Creatinine Glucose 293 H POC Glucose Lactic Acid Calcium 7.2 L Phosphorus Magnesium AST 106 H ALT 92 H Alkaline Phosphatase C-Reactive Protein Total Protein 5.6 L Albumin 3.3 L Triglycerides Ur Specific [place] Urine Creatinine Crossmatch 06/13/21 06/13/21 06/13/21 14:54 15:45 17:34 WBC RBC Hgb Hct MCV MCH RDW Plt Count Lymph % (Auto) [place] % (Auto) Lymph # (Auto) [place] # (Auto) Seg Neutrophils % Seg Neuts % (Manual) Lymphocytes % (Manual) Monocytes % (Manual) Seg Neutrophils # Seg Neutrophils # Man Lymphocytes # (Manual) Monocytes # (Manual) PT INR APTT Fibrinogen D-Dimer ABG pH POC ABG pCO2 POC ABG pO2 ABG pO2 178.4 H ABG HCO3 ABG O2 Saturation 99.1 H ABG Base Excess ABG Hemoglobin 8.0 L ABG Oxyhemoglobin Oxyhemoglobin Sodium Potassium Chloride 107.3 H Carbon Dioxide 19 L BUN 33 H Creatinine 1.5 H Glucose 379 H POC Glucose Lactic Acid 5.30 H* Calcium 6.8 L Phosphorus Magnesium AST ALT Alkaline Phosphatase C-Reactive Protein Total Protein Albumin Triglycerides Ur Specific [place] Urine Creatinine Crossmatch 06/13/21 06/13/21 06/13/21 17:40 23:29 Unknown WBC 22.5 H RBC 3.16 L Hgb 8.0 L Hct 26.0 L MCV MCH 26 L RDW 21.4 H Plt Count Lymph % (Auto) [place] % (Auto) Lymph # (Auto) [place] # (Auto) Seg Neutrophils % Seg Neuts % (Manual) 88.0 H Lymphocytes % (Manual) 4.0 L Monocytes % (Manual) Seg Neutrophils # Seg Neutrophils # Man 19.8 H Lymphocytes # (Manual) 0.9 L Monocytes # (Manual) 1.4 H PT INR APTT Fibrinogen D-Dimer ABG pH POC ABG pCO2 POC ABG pO2 ABG pO2 ABG HCO3 ABG O2 Saturation ABG Base Excess ABG Hemoglobin ABG Oxyhemoglobin Oxyhemoglobin Sodium Potassium Chloride Carbon Dioxide BUN Creatinine Glucose POC Glucose 294 H 288 H Lactic Acid Calcium Phosphorus Magnesium AST ALT Alkaline Phosphatase C-Reactive Protein Total Protein Albumin Triglycerides Ur Specific [place] Urine Creatinine Crossmatch 06/13/21 06/14/21 06/14/21 Unknown 05:39 06:15 WBC RBC 2.93 L Hgb 7.2 L Hct 23.2 L MCV MCH 25 L RDW 21.2 H Plt Count Lymph % (Auto) [place] % (Auto) Lymph # (Auto) [place] # (Auto) Seg Neutrophils % Seg Neuts % (Manual) Lymphocytes % (Manual) Monocytes % (Manual) Seg Neutrophils # Seg Neutrophils # Man Lymphocytes # (Manual) Monocytes # (Manual) PT 17.6 H INR 1.31 H APTT Fibrinogen 546 H D-Dimer 1244.63 H ABG pH POC ABG pCO2 POC ABG pO2 ABG pO2 ABG HCO3 ABG O2 Saturation ABG Base Excess ABG Hemoglobin ABG Oxyhemoglobin Oxyhemoglobin Sodium Potassium Chloride Carbon Dioxide BUN Creatinine Glucose POC Glucose 246 H Lactic Acid Calcium Phosphorus Magnesium AST ALT Alkaline Phosphatase C-Reactive Protein Total Protein Albumin Triglycerides Ur Specific [place] Urine Creatinine Crossmatch 06/14/21 06/14/21 06/14/21 06:15 06:15 09:13 WBC RBC Hgb Hct MCV MCH RDW Plt Count Lymph % (Auto) [place] % (Auto) Lymph # (Auto) [place] # (Auto) Seg Neutrophils % Seg Neuts % (Manual) Lymphocytes % (Manual) Monocytes % (Manual) Seg Neutrophils # Seg Neutrophils # Man Lymphocytes # (Manual) Monocytes # (Manual) PT INR APTT Fibrinogen D-Dimer ABG pH POC ABG pCO2 POC ABG pO2 ABG pO2 183.0 H ABG HCO3 ABG O2 Saturation 99.2 H ABG Base Excess ABG Hemoglobin 6.6 L ABG Oxyhemoglobin Oxyhemoglobin Sodium 147 H Potassium Chloride 112.5 H Carbon Dioxide 21 L BUN 36 H Creatinine 1.4 H Glucose 281 H POC Glucose Lactic Acid Calcium 6.9 L Phosphorus Magnesium AST ALT Alkaline Phosphatase C-Reactive Protein Total Protein Albumin Triglycerides 189 H Ur Specific [place] Urine Creatinine Crossmatch 06/14/21 06/14/21 06/14/21 10:45 12:16 13:30 WBC RBC Hgb 7.1 L Hct 22.3 L MCV MCH RDW Plt Count Lymph % (Auto) [place] % (Auto) Lymph # (Auto) [place] # (Auto) Seg Neutrophils % Seg Neuts % (Manual) Lymphocytes % (Manual) Monocytes % (Manual) Seg Neutrophils # Seg Neutrophils # Man Lymphocytes # (Manual) Monocytes # (Manual) PT INR APTT Fibrinogen D-Dimer ABG pH 7.205 L POC ABG pCO2 POC ABG pO2 ABG pO2 261.3 H ABG HCO3 ABG O2 Saturation 99.4 H ABG Base Excess -7.2 L ABG Hemoglobin 7.6 L ABG Oxyhemoglobin Oxyhemoglobin Sodium Potassium Chloride Carbon Dioxide BUN Creatinine Glucose POC Glucose 174 H Lactic Acid Calcium Phosphorus Magnesium AST ALT Alkaline Phosphatase C-Reactive Protein Total Protein Albumin Triglycerides Ur Specific [place] Urine Creatinine Crossmatch 06/14/21 06/14/21 06/15/21 17:40 18:43 00:06 WBC RBC Hgb Hct MCV MCH RDW Plt Count Lymph % (Auto) [place] % (Auto) Lymph # (Auto) [place] # (Auto) Seg Neutrophils % Seg Neuts % (Manual) Lymphocytes % (Manual) Monocytes % (Manual) Seg Neutrophils # Seg Neutrophils # Man Lymphocytes # (Manual) Monocytes # (Manual) PT INR APTT Fibrinogen D-Dimer ABG pH 7.292 L POC ABG pCO2 POC ABG pO2 ABG pO2 78.8 L ABG HCO3 ABG O2 Saturation ABG Base Excess -5.0 L ABG Hemoglobin 9.1 L ABG Oxyhemoglobin Oxyhemoglobin 93.7 L Sodium Potassium Chloride Carbon Dioxide BUN Creatinine Glucose POC Glucose 182 H 144 H Lactic Acid Calcium Phosphorus Magnesium AST ALT Alkaline Phosphatase C-Reactive Protein Total Protein Albumin Triglycerides Ur Specific [place] Urine Creatinine Crossmatch 06/15/21 06/15/21 06/15/21 03:55 03:56 10:40 WBC RBC Hgb 8.4 L Hct 25.8 L MCV MCH RDW Plt Count Lymph % (Auto) [place] % (Auto) Lymph # (Auto) [place] # (Auto) Seg Neutrophils % Seg Neuts % (Manual) Lymphocytes % (Manual) Monocytes % (Manual) Seg Neutrophils # Seg Neutrophils # Man Lymphocytes # (Manual) Monocytes # (Manual) PT INR APTT Fibrinogen D-Dimer ABG pH POC ABG pCO2 POC ABG pO2 ABG pO2 ABG HCO3 ABG O2 Saturation ABG Base Excess ABG Hemoglobin ABG Oxyhemoglobin Oxyhemoglobin Sodium 147 H Potassium Chloride 112.2 H Carbon Dioxide 21 L BUN 47 H Creatinine 1.9 H Glucose 272 H POC Glucose Lactic Acid Calcium 7.3 L Phosphorus Magnesium AST 64 H ALT 106 H Alkaline Phosphatase C-Reactive Protein Total Protein 5.1 L Albumin 2.9 L Triglycerides Ur Specific [place] Urine Creatinine 81.1 H Crossmatch 06/15/21 06/15/21 06/15/21 11:46 17:16 23:17 WBC RBC Hgb Hct MCV MCH RDW Plt Count Lymph % (Auto) [place] % (Auto) Lymph # (Auto) [place] # (Auto) Seg Neutrophils % Seg Neuts % (Manual) Lymphocytes % (Manual) Monocytes % (Manual) Seg Neutrophils # Seg Neutrophils # Man Lymphocytes # (Manual) Monocytes # (Manual) PT INR APTT Fibrinogen D-Dimer ABG pH POC ABG pCO2 POC ABG pO2 ABG pO2 ABG HCO3 ABG O2 Saturation ABG Base Excess ABG Hemoglobin ABG Oxyhemoglobin Oxyhemoglobin Sodium Potassium Chloride Carbon Dioxide BUN Creatinine Glucose POC Glucose 271 H 268 H 264 H Lactic Acid Calcium Phosphorus Magnesium AST ALT Alkaline Phosphatase C-Reactive Protein Total Protein Albumin Triglycerides Ur Specific [place] Urine Creatinine Crossmatch 06/15/21 06/15/21 06/16/21 Unknown Unknown 04:32 WBC RBC 3.21 L 3.16 L Hgb 8.4 L 8.2 L Hct 26.1 L 25.4 L MCV MCH 26 L 26 L RDW 21.3 H 21.2 H Plt Count 105 L 118 L Lymph % (Auto) [place] % (Auto) Lymph # (Auto) [place] # (Auto) Seg Neutrophils % Seg Neuts % (Manual) Lymphocytes % (Manual) Monocytes % (Manual) Seg Neutrophils # Seg Neutrophils # Man Lymphocytes # (Manual) Monocytes # (Manual) PT INR APTT Fibrinogen D-Dimer ABG pH 7.465 H POC ABG pCO2 POC ABG pO2 ABG pO2 114.1 H ABG HCO3 ABG O2 Saturation ABG Base Excess ABG Hemoglobin 8.4 L ABG Oxyhemoglobin Oxyhemoglobin Sodium Potassium Chloride Carbon Dioxide BUN Creatinine Glucose POC Glucose Lactic Acid Calcium Phosphorus Magnesium AST ALT Alkaline Phosphatase C-Reactive Protein Total Protein Albumin Triglycerides Ur Specific [place] Urine Creatinine Crossmatch 06/16/21 06/16/21 06/16/21 04:32 04:32 05:08 WBC RBC Hgb Hct MCV MCH RDW Plt Count Lymph % (Auto) [place] % (Auto) Lymph # (Auto) [place] # (Auto) Seg Neutrophils % Seg Neuts % (Manual) Lymphocytes % (Manual) Monocytes % (Manual) Seg Neutrophils # Seg Neutrophils # Man Lymphocytes # (Manual) Monocytes # (Manual) PT INR APTT Fibrinogen D-Dimer ABG pH POC ABG pCO2 POC ABG pO2 ABG pO2 ABG HCO3 ABG O2 Saturation ABG Base Excess ABG Hemoglobin ABG Oxyhemoglobin Oxyhemoglobin Sodium 148 H Potassium 3.3 L Chloride 115.1 H Carbon Dioxide 21 L BUN 54 H Creatinine 1.6 H Glucose 367 H POC Glucose 356 H Lactic Acid Calcium 7.4 L Phosphorus Magnesium AST ALT Alkaline Phosphatase C-Reactive Protein 3.30 H Total Protein Albumin Triglycerides Ur Specific [place] Urine Creatinine Crossmatch 06/16/21 06/16/21 06/16/21 05:30 11:46 17:03 WBC RBC Hgb Hct MCV MCH RDW Plt Count Lymph % (Auto) [place] % (Auto) Lymph # (Auto) [place] # (Auto) Seg Neutrophils % Seg Neuts % (Manual) Lymphocytes % (Manual) Monocytes % (Manual) Seg Neutrophils # Seg Neutrophils # Man Lymphocytes # (Manual) Monocytes # (Manual) PT INR APTT Fibrinogen D-Dimer ABG pH 7.475 H POC ABG pCO2 POC ABG pO2 ABG pO2 171.8 H ABG HCO3 ABG O2 Saturation 99.1 H ABG Base Excess ABG Hemoglobin 11.7 L ABG Oxyhemoglobin Oxyhemoglobin Sodium Potassium Chloride Carbon Dioxide BUN Creatinine Glucose POC Glucose 309 H 345 H Lactic Acid Calcium Phosphorus Magnesium AST ALT Alkaline Phosphatase C-Reactive Protein Total Protein Albumin Triglycerides Ur Specific [place] Urine Creatinine Crossmatch 06/16/21 06/16/21 06/17/21 20:18 23:22 04:50 WBC RBC Hgb Hct MCV MCH RDW Plt Count Lymph % (Auto) [place] % (Auto) Lymph # (Auto) [place] # (Auto) Seg Neutrophils % Seg Neuts % (Manual) Lymphocytes % (Manual) Monocytes % (Manual) Seg Neutrophils # Seg Neutrophils # Man Lymphocytes # (Manual) Monocytes # (Manual) PT INR APTT Fibrinogen D-Dimer ABG pH 7.479 H POC ABG pCO2 POC ABG pO2 ABG pO2 143.1 H ABG HCO3 ABG O2 Saturation ABG Base Excess ABG Hemoglobin 10.0 L ABG Oxyhemoglobin Oxyhemoglobin Sodium Potassium Chloride Carbon Dioxide BUN Creatinine Glucose POC Glucose 325 H 315 H Lactic Acid Calcium Phosphorus Magnesium AST ALT Alkaline Phosphatase C-Reactive Protein Total Protein Albumin Triglycerides Ur Specific [place] Urine Creatinine Crossmatch 06/17/21 06/17/21 06/17/21 05:18 05:30 05:30 WBC RBC 3.17 L Hgb 8.2 L Hct 25.5 L MCV MCH 26 L RDW 21.2 H Plt Count 128 L Lymph % (Auto) [place] % (Auto) Lymph # (Auto) [place] # (Auto) Seg Neutrophils % Seg Neuts % (Manual) Lymphocytes % (Manual) Monocytes % (Manual) Seg Neutrophils # Seg Neutrophils # Man Lymphocytes # (Manual) Monocytes # (Manual) PT INR APTT Fibrinogen D-Dimer ABG pH POC ABG pCO2 POC ABG pO2 ABG pO2 ABG HCO3 ABG O2 Saturation ABG Base Excess ABG Hemoglobin ABG Oxyhemoglobin Oxyhemoglobin Sodium 148 H Potassium Chloride 113.7 H Carbon Dioxide 20 L BUN 57 H Creatinine 1.4 H Glucose 351 H POC Glucose 324 H Lactic Acid Calcium 8.0 L Phosphorus 2.30 L Magnesium AST ALT Alkaline Phosphatase C-Reactive Protein Total Protein Albumin Triglycerides Ur Specific [place] Urine Creatinine Crossmatch 06/17/21 06/17/21 06/17/21 11:49 17:43 21:42 WBC RBC Hgb Hct MCV MCH RDW Plt Count Lymph % (Auto) [place] % (Auto) Lymph # (Auto) [place] # (Auto) Seg Neutrophils % Seg Neuts % (Manual) Lymphocytes % (Manual) Monocytes % (Manual) Seg Neutrophils # Seg Neutrophils # Man Lymphocytes # (Manual) Monocytes # (Manual) PT INR APTT Fibrinogen D-Dimer ABG pH POC ABG pCO2 POC ABG pO2 ABG pO2 ABG HCO3 ABG O2 Saturation ABG Base Excess ABG Hemoglobin ABG Oxyhemoglobin Oxyhemoglobin Sodium Potassium Chloride Carbon Dioxide BUN Creatinine Glucose POC Glucose 305 H 307 H 286 H Lactic Acid Calcium Phosphorus Magnesium AST ALT Alkaline Phosphatase C-Reactive Protein Total Protein Albumin Triglycerides Ur Specific [place] Urine Creatinine Crossmatch 06/17/21 06/18/21 06/18/21 23:59 04:20 04:37 WBC RBC 3.53 L Hgb 9.1 L Hct 28.7 L MCV MCH 26 L RDW 21.3 H Plt Count Lymph % (Auto) [place] % (Auto) Lymph # (Auto) [place] # (Auto) Seg Neutrophils % Seg Neuts % (Manual) Lymphocytes % (Manual) Monocytes % (Manual) Seg Neutrophils # Seg Neutrophils # Man Lymphocytes # (Manual) Monocytes # (Manual) PT INR APTT Fibrinogen D-Dimer ABG pH 7.495 H POC ABG pCO2 POC ABG pO2 ABG pO2 108.3 H ABG HCO3 ABG O2 Saturation ABG Base Excess -2.1 L ABG Hemoglobin 10.0 L ABG Oxyhemoglobin Oxyhemoglobin Sodium Potassium Chloride Carbon Dioxide BUN Creatinine Glucose POC Glucose 264 H Lactic Acid Calcium Phosphorus Magnesium AST ALT Alkaline Phosphatase C-Reactive Protein Total Protein Albumin Triglycerides Ur Specific [place] Urine Creatinine Crossmatch 06/18/21 06/18/21 06/18/21 04:37 05:32 11:21 WBC RBC Hgb Hct MCV MCH RDW Plt Count Lymph % (Auto) [place] % (Auto) Lymph # (Auto) [place] # (Auto) Seg Neutrophils % Seg Neuts % (Manual) Lymphocytes % (Manual) Monocytes % (Manual) Seg Neutrophils # Seg Neutrophils # Man Lymphocytes # (Manual) Monocytes # (Manual) PT INR APTT Fibrinogen D-Dimer ABG pH POC ABG pCO2 POC ABG pO2 ABG pO2 ABG HCO3 ABG O2 Saturation ABG Base Excess ABG Hemoglobin ABG Oxyhemoglobin Oxyhemoglobin Sodium 148 H Potassium Chloride 114.7 H Carbon Dioxide BUN 59 H Creatinine 1.3 H Glucose 329 H POC Glucose 293 H 291 H Lactic Acid Calcium 8.1 L Phosphorus Magnesium AST ALT Alkaline Phosphatase C-Reactive Protein Total Protein Albumin Triglycerides Ur Specific [place] Urine Creatinine Crossmatch 06/18/21 06/18/21 06/19/21 18:21 21:46 00:15 WBC RBC Hgb Hct MCV MCH RDW Plt Count Lymph % (Auto) [place] % (Auto) Lymph # (Auto) [place] # (Auto) Seg Neutrophils % Seg Neuts % (Manual) Lymphocytes % (Manual) Monocytes % (Manual) Seg Neutrophils # Seg Neutrophils # Man Lymphocytes # (Manual) Monocytes # (Manual) PT INR APTT Fibrinogen D-Dimer ABG pH POC ABG pCO2 POC ABG pO2 ABG pO2 ABG HCO3 ABG O2 Saturation ABG Base Excess ABG Hemoglobin ABG Oxyhemoglobin Oxyhemoglobin Sodium Potassium Chloride Carbon Dioxide BUN Creatinine Glucose POC Glucose 239 H 259 H 310 H Lactic Acid Calcium Phosphorus Magnesium AST ALT Alkaline Phosphatase C-Reactive Protein Total Protein Albumin Triglycerides Ur Specific [place] Urine Creatinine Crossmatch 06/19/21 06/19/21 06/19/21 04:00 04:00 04:50 WBC RBC 3.64 L Hgb 9.1 L Hct 29.1 L MCV MCH 25 L RDW 21.5 H Plt Count Lymph % (Auto) [place] % (Auto) Lymph # (Auto) [place] # (Auto) Seg Neutrophils % Seg Neuts % (Manual) Lymphocytes % (Manual) Monocytes % (Manual) Seg Neutrophils # Seg Neutrophils # Man Lymphocytes # (Manual) Monocytes # (Manual) PT INR APTT Fibrinogen D-Dimer ABG pH POC ABG pCO2 POC ABG pO2 ABG pO2 78.9 L ABG HCO3 ABG O2 Saturation ABG Base Excess -3.2 L ABG Hemoglobin 7.6 L ABG Oxyhemoglobin Oxyhemoglobin Sodium 148 H Potassium Chloride 114.9 H Carbon Dioxide 19 L BUN 59 H Creatinine Glucose 345 H POC Glucose Lactic Acid Calcium 8.1 L Phosphorus 4.60 H D Magnesium 2.40 H AST ALT Alkaline Phosphatase C-Reactive Protein Total Protein Albumin Triglycerides Ur Specific [place] Urine Creatinine Crossmatch 06/19/21 06/19/21 06/19/21 06:28 11:11 17:20 WBC RBC Hgb Hct MCV MCH RDW Plt Count Lymph % (Auto) [place] % (Auto) Lymph # (Auto) [place] # (Auto) Seg Neutrophils % Seg Neuts % (Manual) Lymphocytes % (Manual) Monocytes % (Manual) Seg Neutrophils # Seg Neutrophils # Man Lymphocytes # (Manual) Monocytes # (Manual) PT 29.7 H INR 2.57 H APTT Fibrinogen D-Dimer ABG pH POC ABG pCO2 POC ABG pO2 ABG pO2 ABG HCO3 ABG O2 Saturation ABG Base Excess ABG Hemoglobin ABG Oxyhemoglobin Oxyhemoglobin Sodium Potassium Chloride Carbon Dioxide BUN Creatinine Glucose POC Glucose 279 H 275 H Lactic Acid Calcium Phosphorus Magnesium AST ALT Alkaline Phosphatase C-Reactive Protein Total Protein Albumin Triglycerides Ur Specific [place] Urine Creatinine Crossmatch 06/19/21 06/19/21 06/19/21 18:30 19:20 23:27 WBC RBC Hgb 8.0 L Hct 25.0 L MCV MCH RDW Plt Count Lymph % (Auto) [place] % (Auto) Lymph # (Auto) [place] # (Auto) Seg Neutrophils % Seg Neuts % (Manual) Lymphocytes % (Manual) Monocytes % (Manual) Seg Neutrophils # Seg Neutrophils # Man Lymphocytes # (Manual) Monocytes # (Manual) PT INR APTT Fibrinogen D-Dimer ABG pH POC ABG pCO2 POC ABG pO2 ABG pO2 ABG HCO3 ABG O2 Saturation ABG Base Excess ABG Hemoglobin ABG Oxyhemoglobin Oxyhemoglobin Sodium Potassium Chloride Carbon Dioxide BUN Creatinine Glucose POC Glucose 279 H 290 H Lactic Acid Calcium Phosphorus Magnesium AST ALT Alkaline Phosphatase C-Reactive Protein Total Protein Albumin Triglycerides Ur Specific [place] Urine Creatinine Crossmatch 06/20/21 06/20/21 06/20/21 00:00 04:33 04:33 WBC 22.3 H RBC 3.31 L Hgb 7.4 L 8.5 L Hct 22.5 L 26.5 L MCV MCH 26 L RDW 21.5 H Plt Count Lymph % (Auto) [place] % (Auto) Lymph # (Auto) [place] # (Auto) Seg Neutrophils % Seg Neuts % (Manual) Lymphocytes % (Manual) Monocytes % (Manual) Seg Neutrophils # Seg Neutrophils # Man Lymphocytes # (Manual) Monocytes # (Manual) PT INR APTT Fibrinogen D-Dimer ABG pH POC ABG pCO2 POC ABG pO2 ABG pO2 ABG HCO3 ABG O2 Saturation ABG Base Excess ABG Hemoglobin ABG Oxyhemoglobin Oxyhemoglobin Sodium 148 H Potassium Chloride 114.2 H Carbon Dioxide BUN 70 H Creatinine 1.4 H Glucose 313 H POC Glucose Lactic Acid Calcium 8.2 L Phosphorus Magnesium 2.50 H AST ALT Alkaline Phosphatase C-Reactive Protein Total Protein Albumin Triglycerides Ur Specific [place] Urine Creatinine Crossmatch 06/20/21 06/20/21 06/20/21 04:33 05:27 11:21 WBC RBC Hgb Hct MCV MCH RDW Plt Count Lymph % (Auto) [place] % (Auto) Lymph # (Auto) [place] # (Auto) Seg Neutrophils % Seg Neuts % (Manual) Lymphocytes % (Manual) Monocytes % (Manual) Seg Neutrophils # Seg Neutrophils # Man Lymphocytes # (Manual) Monocytes # (Manual) PT 18.3 H INR 1.37 H APTT Fibrinogen D-Dimer ABG pH POC ABG pCO2 POC ABG pO2 ABG pO2 ABG HCO3 ABG O2 Saturation ABG Base Excess ABG Hemoglobin ABG Oxyhemoglobin Oxyhemoglobin Sodium Potassium Chloride Carbon Dioxide BUN Creatinine Glucose POC Glucose 288 H 306 H Lactic Acid Calcium Phosphorus Magnesium AST ALT Alkaline Phosphatase C-Reactive Protein Total Protein Albumin Triglycerides Ur Specific [place] Urine Creatinine Crossmatch 06/20/21 06/20/21 06/20/21 12:23 15:56 18:20 WBC RBC Hgb 8.2 L 8.1 L Hct 25.9 L 25.5 L MCV MCH RDW Plt Count Lymph % (Auto) [place] % (Auto) Lymph # (Auto) [place] # (Auto) Seg Neutrophils % Seg Neuts % (Manual) Lymphocytes % (Manual) Monocytes % (Manual) Seg Neutrophils # Seg Neutrophils # Man Lymphocytes # (Manual) Monocytes # (Manual) PT INR APTT Fibrinogen D-Dimer ABG pH POC ABG pCO2 POC ABG pO2 ABG pO2 ABG HCO3 ABG O2 Saturation ABG Base Excess ABG Hemoglobin ABG Oxyhemoglobin Oxyhemoglobin Sodium Potassium Chloride Carbon Dioxide BUN Creatinine Glucose POC Glucose 293 H Lactic Acid Calcium Phosphorus Magnesium AST ALT Alkaline Phosphatase C-Reactive Protein Total Protein Albumin Triglycerides Ur Specific [place] Urine Creatinine Crossmatch 06/20/21 06/21/21 06/21/21 23:11 04:20 04:42 WBC 15.1 H RBC 2.84 L Hgb 7.3 L Hct 23.1 L MCV MCH 26 L RDW 21.5 H Plt Count Lymph % (Auto) 3.5 L [place] % (Auto) 11.7 H Lymph # (Auto) 0.5 L [place] # (Auto) 1.8 H Seg Neutrophils % 84.7 H Seg Neuts % (Manual) Lymphocytes % (Manual) Monocytes % (Manual) Seg Neutrophils # 12.8 H Seg Neutrophils # Man Lymphocytes # (Manual) Monocytes # (Manual) PT INR APTT Fibrinogen D-Dimer ABG pH POC ABG pCO2 POC ABG pO2 ABG pO2 98.5 H ABG HCO3 ABG O2 Saturation ABG Base Excess ABG Hemoglobin 7.2 L ABG Oxyhemoglobin Oxyhemoglobin Sodium Potassium Chloride Carbon Dioxide BUN Creatinine Glucose POC Glucose 206 H Lactic Acid Calcium Phosphorus Magnesium AST ALT Alkaline Phosphatase C-Reactive Protein Total Protein Albumin Triglycerides Ur Specific [place] Urine Creatinine Crossmatch 06/21/21 06/21/21 06/21/21 04:42 05:08 11:06 WBC RBC Hgb Hct MCV MCH RDW Plt Count Lymph % (Auto) [place] % (Auto) Lymph # (Auto) [place] # (Auto) Seg Neutrophils % Seg Neuts % (Manual) Lymphocytes % (Manual) Monocytes % (Manual) Seg Neutrophils # Seg Neutrophils # Man Lymphocytes # (Manual) Monocytes # (Manual) PT INR APTT Fibrinogen D-Dimer ABG pH POC ABG pCO2 POC ABG pO2 ABG pO2 ABG HCO3 ABG O2 Saturation ABG Base Excess ABG Hemoglobin ABG Oxyhemoglobin Oxyhemoglobin Sodium 151 H Potassium Chloride 117.2 H Carbon Dioxide 21 L BUN 75 H Creatinine 1.6 H Glucose 216 H POC Glucose 190 H 204 H Lactic Acid Calcium 7.9 L Phosphorus Magnesium 2.60 H AST ALT Alkaline Phosphatase C-Reactive Protein Total Protein Albumin Triglycerides 254 H Ur Specific [place] Urine Creatinine Crossmatch 06/21/21 06/21/21 06/21/21 14:00 16:42 21:52 WBC RBC Hgb 7.1 L 7.2 L Hct 22.0 L 22.1 L MCV MCH RDW Plt Count Lymph % (Auto) [place] % (Auto) Lymph # (Auto) [place] # (Auto) Seg Neutrophils % Seg Neuts % (Manual) Lymphocytes % (Manual) Monocytes % (Manual) Seg Neutrophils # Seg Neutrophils # Man Lymphocytes # (Manual) Monocytes # (Manual) PT INR APTT Fibrinogen D-Dimer ABG pH POC ABG pCO2 POC ABG pO2 ABG pO2 ABG HCO3 ABG O2 Saturation ABG Base Excess ABG Hemoglobin ABG Oxyhemoglobin Oxyhemoglobin Sodium Potassium Chloride Carbon Dioxide BUN Creatinine Glucose POC Glucose 207 H Lactic Acid Calcium Phosphorus Magnesium AST ALT Alkaline Phosphatase C-Reactive Protein Total Protein Albumin Triglycerides Ur Specific [place] Urine Creatinine Crossmatch 06/21/21 06/22/21 06/22/21 23:29 04:30 04:30 WBC 16.8 H RBC 2.93 L Hgb 7.4 L Hct 23.9 L MCV MCH 25 L RDW 21.8 H Plt Count Lymph % (Auto) [place] % (Auto) Lymph # (Auto) [place] # (Auto) Seg Neutrophils % Seg Neuts % (Manual) Lymphocytes % (Manual) Monocytes % (Manual) Seg Neutrophils # Seg Neutrophils # Man Lymphocytes # (Manual) Monocytes # (Manual) PT INR APTT Fibrinogen D-Dimer ABG pH POC ABG pCO2 POC ABG pO2 ABG pO2 ABG HCO3 ABG O2 Saturation ABG Base Excess ABG Hemoglobin ABG Oxyhemoglobin Oxyhemoglobin Sodium 151 H Potassium Chloride 118.7 H Carbon Dioxide BUN 57 H Creatinine Glucose 238 H POC Glucose 273 H Lactic Acid Calcium 8.0 L Phosphorus Magnesium 2.70 H AST ALT Alkaline Phosphatase C-Reactive Protein Total Protein Albumin Triglycerides Ur Specific [place] Urine Creatinine Crossmatch 06/22/21 06/22/21 06/22/21 05:17 11:31 14:20 WBC RBC Hgb 7.4 L Hct 22.5 L MCV MCH RDW Plt Count Lymph % (Auto) [place] % (Auto) Lymph # (Auto) [place] # (Auto) Seg Neutrophils % Seg Neuts % (Manual) Lymphocytes % (Manual) Monocytes % (Manual) Seg Neutrophils # Seg Neutrophils # Man Lymphocytes # (Manual) Monocytes # (Manual) PT INR APTT Fibrinogen D-Dimer ABG pH POC ABG pCO2 POC ABG pO2 ABG pO2 ABG HCO3 ABG O2 Saturation ABG Base Excess ABG Hemoglobin ABG Oxyhemoglobin Oxyhemoglobin Sodium Potassium Chloride Carbon Dioxide BUN Creatinine Glucose POC Glucose 214 H 214 H Lactic Acid Calcium Phosphorus Magnesium AST ALT Alkaline Phosphatase C-Reactive Protein Total Protein Albumin Triglycerides Ur Specific [place] Urine Creatinine Crossmatch 06/22/21 06/22/21 06/23/21 17:18 23:47 05:33 WBC RBC Hgb Hct MCV MCH RDW Plt Count Lymph % (Auto) [place] % (Auto) Lymph # (Auto) [place] # (Auto) Seg Neutrophils % Seg Neuts % (Manual) Lymphocytes % (Manual) Monocytes % (Manual) Seg Neutrophils # Seg Neutrophils # Man Lymphocytes # (Manual) Monocytes # (Manual) PT INR APTT Fibrinogen D-Dimer ABG pH POC ABG pCO2 POC ABG pO2 ABG pO2 ABG HCO3 ABG O2 Saturation ABG Base Excess ABG Hemoglobin ABG Oxyhemoglobin Oxyhemoglobin Sodium Potassium Chloride Carbon Dioxide BUN Creatinine Glucose POC Glucose 238 H 227 H 202 H Lactic Acid Calcium Phosphorus Magnesium AST ALT Alkaline Phosphatase C-Reactive Protein Total Protein Albumin Triglycerides Ur Specific [place] Urine Creatinine Crossmatch 06/23/21 06/23/21 06/23/21 10:04 10:04 11:06 WBC 20.3 H RBC 2.71 L Hgb 7.3 L Hct 21.8 L MCV MCH 27 L RDW 22.1 H Plt Count Lymph % (Auto) [place] % (Auto) Lymph # (Auto) [place] # (Auto) Seg Neutrophils % Seg Neuts % (Manual) Lymphocytes % (Manual) Monocytes % (Manual) Seg Neutrophils # Seg Neutrophils # Man Lymphocytes # (Manual) Monocytes # (Manual) PT INR APTT Fibrinogen D-Dimer ABG pH POC ABG pCO2 POC ABG pO2 ABG pO2 ABG HCO3 ABG O2 Saturation ABG Base Excess ABG Hemoglobin ABG Oxyhemoglobin Oxyhemoglobin Sodium 151 H Potassium 3.2 L Chloride 116.9 H Carbon Dioxide BUN 40 H Creatinine Glucose 208 H POC Glucose 204 H Lactic Acid Calcium 8.0 L Phosphorus 1.80 L D Magnesium AST ALT Alkaline Phosphatase C-Reactive Protein Total Protein Albumin Triglycerides Ur Specific [place] Urine Creatinine Crossmatch 06/23/21 06/23/21 06/24/21 16:11 23:47 04:00 WBC 16.9 H RBC 2.49 L Hgb 6.6 L Hct 20.3 L MCV MCH 26 L RDW 22.6 H Plt Count Lymph % (Auto) [place] % (Auto) Lymph # (Auto) [place] # (Auto) Seg Neutrophils % Seg Neuts % (Manual) Lymphocytes % (Manual) Monocytes % (Manual) Seg Neutrophils # Seg Neutrophils # Man Lymphocytes # (Manual) Monocytes # (Manual) PT INR APTT Fibrinogen D-Dimer ABG pH POC ABG pCO2 POC ABG pO2 ABG pO2 ABG HCO3 ABG O2 Saturation ABG Base Excess ABG Hemoglobin ABG Oxyhemoglobin Oxyhemoglobin Sodium Potassium Chloride Carbon Dioxide BUN Creatinine Glucose POC Glucose 228 H 189 H Lactic Acid Calcium Phosphorus Magnesium AST ALT Alkaline Phosphatase C-Reactive Protein Total Protein Albumin Triglycerides Ur Specific [place] Urine Creatinine Crossmatch 06/24/21 06/24/21 06/24/21 04:00 05:43 06:40 WBC RBC Hgb Hct MCV MCH RDW Plt Count Lymph % (Auto) [place] % (Auto) Lymph # (Auto) [place] # (Auto) Seg Neutrophils % Seg Neuts % (Manual) Lymphocytes % (Manual) Monocytes % (Manual) Seg Neutrophils # Seg Neutrophils # Man Lymphocytes # (Manual) Monocytes # (Manual) PT INR APTT Fibrinogen D-Dimer ABG pH POC ABG pCO2 POC ABG pO2 ABG pO2 ABG HCO3 ABG O2 Saturation ABG Base Excess ABG Hemoglobin ABG Oxyhemoglobin Oxyhemoglobin Sodium 148 H Potassium 3.2 L Chloride 115.6 H Carbon Dioxide BUN 35 H Creatinine Glucose 153 H POC Glucose 134 H Lactic Acid Calcium 7.9 L Phosphorus 2.40 L D Magnesium AST ALT Alkaline Phosphatase C-Reactive Protein Total Protein Albumin Triglycerides Ur Specific [place] Urine Creatinine Crossmatch See Detail 06/24/21 06/24/21 06/24/21 11:08 16:47 21:49 WBC RBC Hgb Hct MCV MCH RDW Plt Count Lymph % (Auto) [place] % (Auto) Lymph # (Auto) [place] # (Auto) Seg Neutrophils % Seg Neuts % (Manual) Lymphocytes % (Manual) Monocytes % (Manual) Seg Neutrophils # Seg Neutrophils # Man Lymphocytes # (Manual) Monocytes # (Manual) PT INR APTT Fibrinogen D-Dimer ABG pH POC ABG pCO2 POC ABG pO2 ABG pO2 ABG HCO3 ABG O2 Saturation ABG Base Excess ABG Hemoglobin ABG Oxyhemoglobin Oxyhemoglobin Sodium Potassium Chloride Carbon Dioxide BUN Creatinine Glucose POC Glucose 153 H 201 H 132 H Lactic Acid Calcium Phosphorus Magnesium AST ALT Alkaline Phosphatase C-Reactive Protein Total Protein Albumin Triglycerides Ur Specific [place] Urine Creatinine Crossmatch 06/24/21 06/25/21 06/25/21 23:24 05:30 09:00 WBC RBC Hgb 8.3 L Hct 27.0 L MCV MCH RDW Plt Count Lymph % (Auto) [place] % (Auto) Lymph # (Auto) [place] # (Auto) Seg Neutrophils % Seg Neuts % (Manual) Lymphocytes % (Manual) Monocytes % (Manual) Seg Neutrophils # Seg Neutrophils # Man Lymphocytes # (Manual) Monocytes # (Manual) PT INR APTT Fibrinogen D-Dimer ABG pH POC ABG pCO2 POC ABG pO2 ABG pO2 ABG HCO3 ABG O2 Saturation ABG Base Excess ABG Hemoglobin ABG Oxyhemoglobin Oxyhemoglobin Sodium Potassium Chloride Carbon Dioxide BUN Creatinine Glucose POC Glucose 170 H 151 H Lactic Acid Calcium Phosphorus Magnesium AST ALT Alkaline Phosphatase C-Reactive Protein Total Protein Albumin Triglycerides Ur Specific [place] Urine Creatinine Crossmatch 06/25/21 06/25/21 06/25/21 11:29 14:24 16:48 WBC RBC Hgb 8.5 L Hct 27.5 L MCV MCH RDW Plt Count Lymph % (Auto) [place] % (Auto) Lymph # (Auto) [place] # (Auto) Seg Neutrophils % Seg Neuts % (Manual) Lymphocytes % (Manual) Monocytes % (Manual) Seg Neutrophils # Seg Neutrophils # Man Lymphocytes # (Manual) Monocytes # (Manual) PT INR APTT Fibrinogen D-Dimer ABG pH POC ABG pCO2 POC ABG pO2 ABG pO2 ABG HCO3 ABG O2 Saturation ABG Base Excess ABG Hemoglobin ABG Oxyhemoglobin Oxyhemoglobin Sodium Potassium Chloride Carbon Dioxide BUN Creatinine Glucose POC Glucose 189 H 224 H Lactic Acid Calcium Phosphorus Magnesium AST ALT Alkaline Phosphatase C-Reactive Protein Total Protein Albumin Triglycerides Ur Specific [place] Urine Creatinine Crossmatch 06/25/21 06/25/21 06/25/21 23:39 Unknown Unknown WBC 16.5 H RBC 2.90 L Hgb 8.0 L Hct 23.8 L MCV MCH RDW 22.8 H Plt Count Lymph % (Auto) [place] % (Auto) Lymph # (Auto) [place] # (Auto) Seg Neutrophils % Seg Neuts % (Manual) Lymphocytes % (Manual) Monocytes % (Manual) Seg Neutrophils # Seg Neutrophils # Man Lymphocytes # (Manual) Monocytes # (Manual) PT INR APTT Fibrinogen D-Dimer ABG pH POC ABG pCO2 POC ABG pO2 ABG pO2 ABG HCO3 ABG O2 Saturation ABG Base Excess ABG Hemoglobin ABG Oxyhemoglobin Oxyhemoglobin Sodium 149 H Potassium Chloride 115.6 H Carbon Dioxide BUN 28 H Creatinine Glucose 157 H POC Glucose 187 H Lactic Acid Calcium 8.0 L Phosphorus Magnesium AST ALT Alkaline Phosphatase C-Reactive Protein Total Protein Albumin Triglycerides Ur Specific [place] Urine Creatinine Crossmatch 06/26/21 06/26/21 06/26/21 05:22 05:29 05:29 WBC 16.2 H RBC 3.03 L Hgb 8.0 L Hct 25.1 L MCV MCH 26 L RDW 23.2 H Plt Count Lymph % (Auto) [place] % (Auto) Lymph # (Auto) [place] # (Auto) Seg Neutrophils % Seg Neuts % (Manual) Lymphocytes % (Manual) Monocytes % (Manual) Seg Neutrophils # Seg Neutrophils # Man Lymphocytes # (Manual) Monocytes # (Manual) PT INR APTT Fibrinogen D-Dimer ABG pH POC ABG pCO2 POC ABG pO2 ABG pO2 ABG HCO3 ABG O2 Saturation ABG Base Excess ABG Hemoglobin ABG Oxyhemoglobin Oxyhemoglobin Sodium 150 H Potassium Chloride 114.8 H Carbon Dioxide BUN 29 H Creatinine Glucose 229 H POC Glucose 211 H Lactic Acid Calcium 8.2 L Phosphorus Magnesium AST ALT Alkaline Phosphatase C-Reactive Protein Total Protein Albumin Triglycerides Ur Specific [place] Urine Creatinine Crossmatch 06/26/21 06/26/21 06/26/21 11:05 15:59 22:00 WBC RBC Hgb Hct MCV MCH RDW Plt Count Lymph % (Auto) [place] % (Auto) Lymph # (Auto) [place] # (Auto) Seg Neutrophils % Seg Neuts % (Manual) Lymphocytes % (Manual) Monocytes % (Manual) Seg Neutrophils # Seg Neutrophils # Man Lymphocytes # (Manual) Monocytes # (Manual) PT INR APTT Fibrinogen D-Dimer ABG pH POC ABG pCO2 POC ABG pO2 ABG pO2 ABG HCO3 ABG O2 Saturation ABG Base Excess ABG Hemoglobin ABG Oxyhemoglobin Oxyhemoglobin Sodium Potassium Chloride Carbon Dioxide BUN Creatinine Glucose POC Glucose 213 H 222 H 161 H Lactic Acid Calcium Phosphorus Magnesium AST ALT Alkaline Phosphatase C-Reactive Protein Total Protein Albumin Triglycerides Ur Specific [place] Urine Creatinine Crossmatch 06/26/21 06/27/21 06/27/21 23:24 04:15 04:15 WBC 14.3 H RBC 2.96 L Hgb 8.1 L Hct 24.6 L MCV MCH 27 L RDW 23.0 H Plt Count Lymph % (Auto) [place] % (Auto) Lymph # (Auto) [place] # (Auto) Seg Neutrophils % Seg Neuts % (Manual) Lymphocytes % (Manual) Monocytes % (Manual) Seg Neutrophils # Seg Neutrophils # Man Lymphocytes # (Manual) Monocytes # (Manual) PT INR APTT Fibrinogen D-Dimer ABG pH POC ABG pCO2 POC ABG pO2 ABG pO2 ABG HCO3 ABG O2 Saturation ABG Base Excess ABG Hemoglobin ABG Oxyhemoglobin Oxyhemoglobin Sodium 150 H Potassium Chloride 113.8 H Carbon Dioxide BUN 26 H Creatinine Glucose 246 H POC Glucose 164 H Lactic Acid Calcium 7.8 L Phosphorus Magnesium AST ALT Alkaline Phosphatase C-Reactive Protein Total Protein Albumin Triglycerides Ur Specific [place] Urine Creatinine Crossmatch 06/27/21 06/27/21 06/27/21 05:44 11:07 16:06 WBC RBC Hgb Hct MCV MCH RDW Plt Count Lymph % (Auto) [place] % (Auto) Lymph # (Auto) [place] # (Auto) Seg Neutrophils % Seg Neuts % (Manual) Lymphocytes % (Manual) Monocytes % (Manual) Seg Neutrophils # Seg Neutrophils # Man Lymphocytes # (Manual) Monocytes # (Manual) PT INR APTT Fibrinogen D-Dimer ABG pH POC ABG pCO2 POC ABG pO2 ABG pO2 ABG HCO3 ABG O2 Saturation ABG Base Excess ABG Hemoglobin ABG Oxyhemoglobin Oxyhemoglobin Sodium Potassium Chloride Carbon Dioxide BUN Creatinine Glucose POC Glucose 226 H 204 H 224 H Lactic Acid Calcium Phosphorus Magnesium AST ALT Alkaline Phosphatase C-Reactive Protein Total Protein Albumin Triglycerides Ur Specific [place] Urine Creatinine Crossmatch 06/27/21 06/28/21 06/28/21 23:49 04:00 04:00 WBC 15.4 H RBC 3.05 L Hgb 8.2 L Hct 25.0 L MCV MCH 27 L RDW 22.6 H Plt Count Lymph % (Auto) [place] % (Auto) Lymph # (Auto) [place] # (Auto) Seg Neutrophils % Seg Neuts % (Manual) Lymphocytes % (Manual) Monocytes % (Manual) Seg Neutrophils # Seg Neutrophils # Man Lymphocytes # (Manual) Monocytes # (Manual) PT INR APTT Fibrinogen D-Dimer ABG pH POC ABG pCO2 POC ABG pO2 ABG pO2 ABG HCO3 ABG O2 Saturation ABG Base Excess ABG Hemoglobin ABG Oxyhemoglobin Oxyhemoglobin Sodium 152 H Potassium 3.0 L Chloride 114.9 H Carbon Dioxide BUN 24 H Creatinine Glucose 158 H POC Glucose 195 H Lactic Acid Calcium 8.1 L Phosphorus Magnesium AST ALT Alkaline Phosphatase C-Reactive Protein Total Protein Albumin Triglycerides Ur Specific [place] Urine Creatinine Crossmatch 06/28/21 06/28/21 06/28/21 05:05 11:47 17:21 WBC RBC Hgb Hct MCV MCH RDW Plt Count Lymph % (Auto) [place] % (Auto) Lymph # (Auto) [place] # (Auto) Seg Neutrophils % Seg Neuts % (Manual) Lymphocytes % (Manual) Monocytes % (Manual) Seg Neutrophils # Seg Neutrophils # Man Lymphocytes # (Manual) Monocytes # (Manual) PT INR APTT Fibrinogen D-Dimer ABG pH POC ABG pCO2 POC ABG pO2 ABG pO2 ABG HCO3 ABG O2 Saturation ABG Base Excess ABG Hemoglobin ABG Oxyhemoglobin Oxyhemoglobin Sodium Potassium Chloride Carbon Dioxide BUN Creatinine Glucose POC Glucose 121 H 164 H 166 H Lactic Acid Calcium Phosphorus Magnesium AST ALT Alkaline Phosphatase C-Reactive Protein Total Protein Albumin Triglycerides Ur Specific [place] Urine Creatinine Crossmatch 06/28/21 06/28/21 06/29/21 18:14 21:54 00:55 WBC RBC Hgb Hct MCV MCH RDW Plt Count Lymph % (Auto) [place] % (Auto) Lymph # (Auto) [place] # (Auto) Seg Neutrophils % Seg Neuts % (Manual) Lymphocytes % (Manual) Monocytes % (Manual) Seg Neutrophils # Seg Neutrophils # Man Lymphocytes # (Manual) Monocytes # (Manual) PT INR APTT Fibrinogen D-Dimer ABG pH POC ABG pCO2 POC ABG pO2 ABG pO2 ABG HCO3 ABG O2 Saturation ABG Base Excess ABG Hemoglobin ABG Oxyhemoglobin Oxyhemoglobin Sodium Potassium Chloride Carbon Dioxide BUN Creatinine Glucose POC Glucose 150 H 148 H 176 H Lactic Acid Calcium Phosphorus Magnesium AST ALT Alkaline Phosphatase C-Reactive Protein Total Protein Albumin Triglycerides Ur Specific [place] Urine Creatinine Crossmatch 06/29/21 06/29/21 06/29/21 04:00 04:00 05:20 WBC 15.3 H RBC 3.04 L Hgb 8.0 L Hct 25.0 L MCV MCH 26 L RDW 22.3 H Plt Count Lymph % (Auto) [place] % (Auto) Lymph # (Auto) [place] # (Auto) Seg Neutrophils % Seg Neuts % (Manual) Lymphocytes % (Manual) Monocytes % (Manual) Seg Neutrophils # Seg Neutrophils # Man Lymphocytes # (Manual) Monocytes # (Manual) PT INR APTT Fibrinogen D-Dimer ABG pH POC ABG pCO2 POC ABG pO2 ABG pO2 ABG HCO3 ABG O2 Saturation ABG Base Excess ABG Hemoglobin ABG Oxyhemoglobin Oxyhemoglobin Sodium Potassium 3.1 L Chloride 108.7 H Carbon Dioxide BUN 20 H Creatinine Glucose 194 H POC Glucose 185 H Lactic Acid Calcium 8.0 L Phosphorus Magnesium AST ALT Alkaline Phosphatase C-Reactive Protein Total Protein Albumin Triglycerides Ur Specific [place] Urine Creatinine Crossmatch 06/29/21 06/29/21 06/30/21 12:18 17:20 00:49 WBC RBC Hgb Hct MCV MCH RDW Plt Count Lymph % (Auto) [place] % (Auto) Lymph # (Auto) [place] # (Auto) Seg Neutrophils % Seg Neuts % (Manual) Lymphocytes % (Manual) Monocytes % (Manual) Seg Neutrophils # Seg Neutrophils # Man Lymphocytes # (Manual) Monocytes # (Manual) PT INR APTT Fibrinogen D-Dimer ABG pH POC ABG pCO2 POC ABG pO2 ABG pO2 ABG HCO3 ABG O2 Saturation ABG Base Excess ABG Hemoglobin ABG Oxyhemoglobin Oxyhemoglobin Sodium Potassium Chloride Carbon Dioxide BUN Creatinine Glucose POC Glucose 135 H 185 H 156 H Lactic Acid Calcium Phosphorus Magnesium AST ALT Alkaline Phosphatase C-Reactive Protein Total Protein Albumin Triglycerides Ur Specific [place] Urine Creatinine Crossmatch 06/30/21 06/30/21 06/30/21 04:25 04:25 08:14 WBC 13.0 H RBC 3.19 L Hgb 8.2 L Hct 26.2 L MCV MCH 26 L RDW 22.3 H Plt Count Lymph % (Auto) [place] % (Auto) Lymph # (Auto) [place] # (Auto) Seg Neutrophils % Seg Neuts % (Manual) 81.0 H Lymphocytes % (Manual) 10.0 L Monocytes % (Manual) 8.0 H Seg Neutrophils # Seg Neutrophils # Man 10.5 H Lymphocytes # (Manual) Monocytes # (Manual) 1.0 H PT INR APTT Fibrinogen D-Dimer ABG pH POC ABG pCO2 POC ABG pO2 ABG pO2 ABG HCO3 ABG O2 Saturation ABG Base Excess ABG Hemoglobin ABG Oxyhemoglobin Oxyhemoglobin Sodium Potassium 3.0 L Chloride Carbon Dioxide BUN 20 H Creatinine Glucose 104 H POC Glucose 119 H Lactic Acid Calcium 8.3 L Phosphorus Magnesium AST ALT Alkaline Phosphatase C-Reactive Protein Total Protein Albumin Triglycerides Ur Specific [place] Urine Creatinine Crossmatch 06/30/21 06/30/21 06/30/21 11:36 16:24 22:44 WBC RBC Hgb Hct MCV MCH RDW Plt Count Lymph % (Auto) [place] % (Auto) Lymph # (Auto) [place] # (Auto) Seg Neutrophils % Seg Neuts % (Manual) Lymphocytes % (Manual) Monocytes % (Manual) Seg Neutrophils # Seg Neutrophils # Man Lymphocytes # (Manual) Monocytes # (Manual) PT INR APTT Fibrinogen D-Dimer ABG pH POC ABG pCO2 POC ABG pO2 ABG pO2 ABG HCO3 ABG O2 Saturation ABG Base Excess ABG Hemoglobin ABG Oxyhemoglobin Oxyhemoglobin Sodium Potassium Chloride Carbon Dioxide BUN Creatinine Glucose POC Glucose 154 H 208 H 174 H Lactic Acid Calcium Phosphorus Magnesium AST ALT Alkaline Phosphatase C-Reactive Protein Total Protein Albumin Triglycerides Ur Specific [place] Urine Creatinine Crossmatch 07/01/21 07/01/21 07/01/21 05:29 05:29 05:54 WBC 11.9 H RBC 3.00 L Hgb 8.1 L Hct 24.4 L MCV MCH 27 L RDW 21.7 H Plt Count Lymph % (Auto) [place] % (Auto) Lymph # (Auto) [place] # (Auto) Seg Neutrophils % Seg Neuts % (Manual) Lymphocytes % (Manual) Monocytes % (Manual) Seg Neutrophils # Seg Neutrophils # Man Lymphocytes # (Manual) Monocytes # (Manual) PT INR APTT Fibrinogen D-Dimer ABG pH POC ABG pCO2 POC ABG pO2 ABG pO2 ABG HCO3 ABG O2 Saturation ABG Base Excess ABG Hemoglobin ABG Oxyhemoglobin Oxyhemoglobin Sodium Potassium Chloride Carbon Dioxide BUN Creatinine Glucose 177 H POC Glucose 170 H Lactic Acid Calcium Phosphorus Magnesium AST ALT Alkaline Phosphatase C-Reactive Protein Total Protein Albumin Triglycerides Ur Specific [place] Urine Creatinine Crossmatch 07/01/21 07/02/21 07/02/21 10:54 05:05 10:18 WBC RBC Hgb Hct MCV MCH RDW Plt Count Lymph % (Auto) [place] % (Auto) Lymph # (Auto) [place] # (Auto) Seg Neutrophils % Seg Neuts % (Manual) Lymphocytes % (Manual) Monocytes % (Manual) Seg Neutrophils # Seg Neutrophils # Man Lymphocytes # (Manual) Monocytes # (Manual) PT INR APTT Fibrinogen D-Dimer ABG pH 7.488 H POC ABG pCO2 POC ABG pO2 ABG pO2 97.2 H ABG HCO3 27.1 H ABG O2 Saturation ABG Base Excess 3.5 H ABG Hemoglobin 7.9 L ABG Oxyhemoglobin Oxyhemoglobin Sodium Potassium Chloride Carbon Dioxide BUN Creatinine Glucose POC Glucose 184 H 182 H Lactic Acid Calcium Phosphorus Magnesium AST ALT Alkaline Phosphatase C-Reactive Protein Total Protein Albumin Triglycerides Ur Specific [place] Urine Creatinine Crossmatch 07/02/21 07/02/21 07/02/21 12:14 16:18 22:27 WBC RBC Hgb Hct MCV MCH RDW Plt Count Lymph % (Auto) [place] % (Auto) Lymph # (Auto) [place] # (Auto) Seg Neutrophils % Seg Neuts % (Manual) Lymphocytes % (Manual) Monocytes % (Manual) Seg Neutrophils # Seg Neutrophils # Man Lymphocytes # (Manual) Monocytes # (Manual) PT INR APTT Fibrinogen D-Dimer ABG pH 7.199 L* POC ABG pCO2 POC ABG pO2 ABG pO2 104.5 H ABG HCO3 30.3 H ABG O2 Saturation ABG Base Excess ABG Hemoglobin 9.8 L ABG Oxyhemoglobin Oxyhemoglobin 94.6 L Sodium Potassium Chloride Carbon Dioxide BUN Creatinine Glucose POC Glucose 184 H 194 H Lactic Acid Calcium Phosphorus Magnesium AST ALT Alkaline Phosphatase C-Reactive Protein Total Protein Albumin Triglycerides Ur Specific [place] Urine Creatinine Crossmatch 07/03/21 07/03/21 07/03/21 09:47 10:44 11:24 WBC RBC 3.01 L Hgb 8.3 L Hct 24.3 L MCV MCH RDW 21.7 H Plt Count Lymph % (Auto) 8.4 L [place] % (Auto) Lymph # (Auto) 0.8 L [place] # (Auto) Seg Neutrophils % 80.6 H Seg Neuts % (Manual) Lymphocytes % (Manual) Monocytes % (Manual) Seg Neutrophils # Seg Neutrophils # Man Lymphocytes # (Manual) Monocytes # (Manual) PT INR APTT Fibrinogen D-Dimer ABG pH POC ABG pCO2 POC ABG pO2 ABG pO2 ABG HCO3 ABG O2 Saturation ABG Base Excess ABG Hemoglobin ABG Oxyhemoglobin Oxyhemoglobin Sodium Potassium 3.0 L Chloride Carbon Dioxide BUN Creatinine Glucose 200 H POC Glucose 180 H Lactic Acid Calcium 8.3 L Phosphorus Magnesium AST ALT Alkaline Phosphatase C-Reactive Protein Total Protein Albumin Triglycerides Ur Specific [place] Urine Creatinine Crossmatch 07/03/21 07/03/21 07/03/21 16:34 22:14 22:15 WBC RBC Hgb Hct MCV MCH RDW Plt Count Lymph % (Auto) [place] % (Auto) Lymph # (Auto) [place] # (Auto) Seg Neutrophils % Seg Neuts % (Manual) Lymphocytes % (Manual) Monocytes % (Manual) Seg Neutrophils # Seg Neutrophils # Man Lymphocytes # (Manual) Monocytes # (Manual) PT INR APTT Fibrinogen D-Dimer ABG pH POC ABG pCO2 POC ABG pO2 ABG pO2 ABG HCO3 ABG O2 Saturation ABG Base Excess ABG Hemoglobin ABG Oxyhemoglobin Oxyhemoglobin Sodium Potassium Chloride Carbon Dioxide BUN Creatinine Glucose POC Glucose 165 H 174 H 180 H Lactic Acid Calcium Phosphorus Magnesium AST ALT Alkaline Phosphatase C-Reactive Protein Total Protein Albumin Triglycerides Ur Specific [place] Urine Creatinine Crossmatch 07/04/21 07/04/21 07/04/21 00:28 01:44 05:07 WBC RBC Hgb Hct MCV MCH RDW Plt Count Lymph % (Auto) [place] % (Auto) Lymph # (Auto) [place] # (Auto) Seg Neutrophils % Seg Neuts % (Manual) Lymphocytes % (Manual) Monocytes % (Manual) Seg Neutrophils # Seg Neutrophils # Man Lymphocytes # (Manual) Monocytes # (Manual) PT INR APTT Fibrinogen D-Dimer ABG pH POC ABG pCO2 POC ABG pO2 ABG pO2 107.7 H ABG HCO3 26.7 H ABG O2 Saturation ABG Base Excess ABG Hemoglobin 7.5 L ABG Oxyhemoglobin Oxyhemoglobin Sodium Potassium Chloride Carbon Dioxide BUN Creatinine Glucose POC Glucose 246 H 179 H Lactic Acid Calcium Phosphorus Magnesium AST ALT Alkaline Phosphatase C-Reactive Protein Total Protein Albumin Triglycerides Ur Specific [place] Urine Creatinine Crossmatch 07/04/21 07/04/21 07/04/21 05:13 05:13 10:52 WBC RBC 3.12 L Hgb 8.5 L Hct 25.2 L MCV MCH 27 L RDW 21.3 H Plt Count Lymph % (Auto) 6.1 L [place] % (Auto) Lymph # (Auto) 0.6 L [place] # (Auto) Seg Neutrophils % 85.0 H Seg Neuts % (Manual) Lymphocytes % (Manual) Monocytes % (Manual) Seg Neutrophils # 8.0 H Seg Neutrophils # Man Lymphocytes # (Manual) Monocytes # (Manual) PT INR APTT Fibrinogen D-Dimer ABG pH POC ABG pCO2 POC ABG pO2 ABG pO2 ABG HCO3 ABG O2 Saturation ABG Base Excess ABG Hemoglobin ABG Oxyhemoglobin Oxyhemoglobin Sodium Potassium 3.4 L Chloride Carbon Dioxide BUN Creatinine Glucose 205 H POC Glucose 146 H Lactic Acid Calcium Phosphorus Magnesium AST ALT Alkaline Phosphatase C-Reactive Protein Total Protein Albumin Triglycerides Ur Specific [place] Urine Creatinine Crossmatch 07/04/21 07/04/21 07/05/21 16:22 23:52 04:38 WBC RBC Hgb Hct MCV MCH RDW Plt Count Lymph % (Auto) [place] % (Auto) Lymph # (Auto) [place] # (Auto) Seg Neutrophils % Seg Neuts % (Manual) Lymphocytes % (Manual) Monocytes % (Manual) Seg Neutrophils # Seg Neutrophils # Man Lymphocytes # (Manual) Monocytes # (Manual) PT INR APTT Fibrinogen D-Dimer ABG pH POC ABG pCO2 POC ABG pO2 ABG pO2 ABG HCO3 ABG O2 Saturation ABG Base Excess ABG Hemoglobin ABG Oxyhemoglobin Oxyhemoglobin Sodium Potassium 3.0 L Chloride Carbon Dioxide BUN 18 H Creatinine Glucose 174 H POC Glucose 154 H 193 H Lactic Acid Calcium Phosphorus 2.20 L Magnesium AST ALT Alkaline Phosphatase C-Reactive Protein Total Protein Albumin Triglycerides Ur Specific [place] Urine Creatinine Crossmatch 07/05/21 07/05/21 07/05/21 04:38 05:15 12:35 WBC RBC 2.95 L Hgb 7.8 L Hct 23.9 L MCV MCH 27 L RDW 21.0 H Plt Count Lymph % (Auto) [place] % (Auto) Lymph # (Auto) [place] # (Auto) Seg Neutrophils % Seg Neuts % (Manual) Lymphocytes % (Manual) Monocytes % (Manual) Seg Neutrophils # Seg Neutrophils # Man Lymphocytes # (Manual) Monocytes # (Manual) PT INR APTT Fibrinogen D-Dimer ABG pH POC ABG pCO2 POC ABG pO2 ABG pO2 ABG HCO3 ABG O2 Saturation ABG Base Excess ABG Hemoglobin ABG Oxyhemoglobin Oxyhemoglobin Sodium Potassium Chloride Carbon Dioxide BUN Creatinine Glucose POC Glucose 163 H 121 H Lactic Acid Calcium Phosphorus Magnesium AST ALT Alkaline Phosphatase C-Reactive Protein Total Protein Albumin Triglycerides Ur Specific [place] Urine Creatinine Crossmatch 07/05/21 07/05/21 07/05/21 18:27 21:05 23:11 WBC RBC Hgb Hct MCV MCH RDW Plt Count Lymph % (Auto) [place] % (Auto) Lymph # (Auto) [place] # (Auto) Seg Neutrophils % Seg Neuts % (Manual) Lymphocytes % (Manual) Monocytes % (Manual) Seg Neutrophils # Seg Neutrophils # Man Lymphocytes # (Manual) Monocytes # (Manual) PT INR APTT Fibrinogen D-Dimer ABG pH POC ABG pCO2 POC ABG pO2 ABG pO2 ABG HCO3 ABG O2 Saturation ABG Base Excess ABG Hemoglobin ABG Oxyhemoglobin Oxyhemoglobin Sodium Potassium Chloride Carbon Dioxide BUN Creatinine Glucose POC Glucose 183 H 170 H 184 H Lactic Acid Calcium Phosphorus Magnesium AST ALT Alkaline Phosphatase C-Reactive Protein Total Protein Albumin Triglycerides Ur Specific [place] Urine Creatinine Crossmatch 07/06/21 07/06/21 07/06/21 04:39 05:13 12:12 WBC RBC Hgb Hct MCV MCH RDW Plt Count Lymph % (Auto) [place] % (Auto) Lymph # (Auto) [place] # (Auto) Seg Neutrophils % Seg Neuts % (Manual) Lymphocytes % (Manual) Monocytes % (Manual) Seg Neutrophils # Seg Neutrophils # Man Lymphocytes # (Manual) Monocytes # (Manual) PT INR APTT Fibrinogen D-Dimer ABG pH POC ABG pCO2 POC ABG pO2 ABG pO2 ABG HCO3 ABG O2 Saturation ABG Base Excess ABG Hemoglobin ABG Oxyhemoglobin Oxyhemoglobin Sodium Potassium 3.4 L Chloride Carbon Dioxide BUN Creatinine Glucose 180 H POC Glucose 183 H 153 H Lactic Acid Calcium Phosphorus Magnesium AST ALT Alkaline Phosphatase C-Reactive Protein Total Protein Albumin Triglycerides Ur Specific [place] Urine Creatinine Crossmatch 07/06/21 07/06/21 07/07/21 17:30 21:44 00:22 WBC RBC Hgb Hct MCV MCH RDW Plt Count Lymph % (Auto) [place] % (Auto) Lymph # (Auto) [place] # (Auto) Seg Neutrophils % Seg Neuts % (Manual) Lymphocytes % (Manual) Monocytes % (Manual) Seg Neutrophils # Seg Neutrophils # Man Lymphocytes # (Manual) Monocytes # (Manual) PT INR APTT Fibrinogen D-Dimer ABG pH POC ABG pCO2 POC ABG pO2 ABG pO2 ABG HCO3 ABG O2 Saturation ABG Base Excess ABG Hemoglobin ABG Oxyhemoglobin Oxyhemoglobin Sodium Potassium Chloride Carbon Dioxide BUN Creatinine Glucose POC Glucose 166 H 155 H 188 H Lactic Acid Calcium Phosphorus Magnesium AST ALT Alkaline Phosphatase C-Reactive Protein Total Protein Albumin Triglycerides Ur Specific [place] Urine Creatinine Crossmatch 07/07/21 07/07/21 07/07/21 04:10 05:48 07:39 WBC RBC Hgb Hct MCV MCH RDW Plt Count Lymph % (Auto) [place] % (Auto) Lymph # (Auto) [place] # (Auto) Seg Neutrophils % Seg Neuts % (Manual) Lymphocytes % (Manual) Monocytes % (Manual) Seg Neutrophils # Seg Neutrophils # Man Lymphocytes # (Manual) Monocytes # (Manual) PT INR APTT Fibrinogen D-Dimer ABG pH POC ABG pCO2 POC ABG pO2 ABG pO2 ABG HCO3 ABG O2 Saturation ABG Base Excess ABG Hemoglobin ABG Oxyhemoglobin Oxyhemoglobin Sodium Potassium 3.1 L Chloride Carbon Dioxide BUN Creatinine Glucose 138 H POC Glucose 141 H 147 H Lactic Acid Calcium Phosphorus 2.40 L Magnesium AST ALT Alkaline Phosphatase C-Reactive Protein Total Protein Albumin Triglycerides Ur Specific [place] Urine Creatinine Crossmatch 07/07/21 07/07/21 07/07/21 11:17 16:06 23:58 WBC RBC Hgb Hct MCV MCH RDW Plt Count Lymph % (Auto) [place] % (Auto) Lymph # (Auto) [place] # (Auto) Seg Neutrophils % Seg Neuts % (Manual) Lymphocytes % (Manual) Monocytes % (Manual) Seg Neutrophils # Seg Neutrophils # Man Lymphocytes # (Manual) Monocytes # (Manual) PT INR APTT Fibrinogen D-Dimer ABG pH POC ABG pCO2 POC ABG pO2 ABG pO2 ABG HCO3 ABG O2 Saturation ABG Base Excess ABG Hemoglobin ABG Oxyhemoglobin Oxyhemoglobin Sodium Potassium Chloride Carbon Dioxide BUN Creatinine Glucose POC Glucose 161 H 173 H 198 H Lactic Acid Calcium Phosphorus Magnesium AST ALT Alkaline Phosphatase C-Reactive Protein Total Protein Albumin Triglycerides Ur Specific [place] Urine Creatinine Crossmatch 07/08/21 07/08/21 07/08/21 04:20 04:20 06:12 WBC RBC 3.16 L Hgb 8.3 L Hct 25.1 L MCV MCH 26 L RDW 21.0 H Plt Count Lymph % (Auto) [place] % (Auto) Lymph # (Auto) [place] # (Auto) Seg Neutrophils % Seg Neuts % (Manual) Lymphocytes % (Manual) Monocytes % (Manual) Seg Neutrophils # Seg Neutrophils # Man Lymphocytes # (Manual) Monocytes # (Manual) PT INR APTT Fibrinogen D-Dimer ABG pH POC ABG pCO2 POC ABG pO2 ABG pO2 ABG HCO3 ABG O2 Saturation ABG Base Excess ABG Hemoglobin ABG Oxyhemoglobin Oxyhemoglobin Sodium Potassium Chloride Carbon Dioxide BUN Creatinine Glucose 183 H POC Glucose 189 H Lactic Acid Calcium Phosphorus Magnesium AST ALT Alkaline Phosphatase C-Reactive Protein Total Protein Albumin Triglycerides Ur Specific [place] Urine Creatinine Crossmatch Assessment and Plan Assessment and Plan Assessment and plan: This is 76-year-old female with past medical history of diabetes mellitus type 2, hypertension and gout who was admitted to the hospital on 06/11/2021 with swelling of the submandibular region/tongue and shortness of breath. 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 Patient was also noted to have severe coagulopathy due to Coumadin and probably component of hemorrhagic shock with blood loss anemia. S/p vasopressor support with Levophed and Fabian-Synephrine Patient had hospital course complicated by cardiac arrest on 06/14 with ROSC. Patient is status post trach and PEG tube placement on 06/19/2021. Patient was a code met overnight and transfer back in the ICU on 07/04/21 due to decreased level of consciousness, respiratory distress and tachypnea. Hospital course to date: 06/12: Patient received additional 2 units FFP and 1 unit PRBC and vitamin K today. 06/13: Patient was taken back to the OR today for exchange cricothyroid to possible tracheostomy. 06/14: ST elevation noted on bedside monitor and patient was hypoxic. FiO2 increased to 100%. However shortly after patient lost her pulse and ACLS was initiated. Patient received 3 rounds of epinephrine and ROSC was achieved. Stat portable CXR showed resolution of lower lobe collapse on the left and stable right-sided chest tube with hemothorax. 06/16: Patient restarted on fentanyl drip due to hypertension. Patient had a CT chest today which showed no mediasinusitis but extensive subcutaneous air. 06/19: Low SPO2 and hypotension overnight required Levophed for a short time. Overnight CXR noted with no significant changed. Patient is stable this am and off pressors. Plan for possible Trach and PEG today by General Surgery. 06/20: s/p Trach and PEG. Some bleeding overnight s/p X1 dose of Vitamin K. The bleeding resolved this am, H&H remains stable. 06/21: Overnight events and CXR noted. Worsen subcutaneous emphysema and Rt. Pneumo. CT remains in place and intact to cont. wall suction. Patient remains hemodynamically stable, still on low vent setting. will continue to monitor for now. Patient is also tolerating enteral nutrition via PEGT, TPN D/benjamín. H&H is also trending down, no s/s of any active bleeding. Will continue to trend H&H, transfuse if hgb is less than 7. FWF increased for hypernatremia. Still waiting on possible transfer to [facility]. 06/23: Over 70cc from CT overnight, subcutaneous emphysema with mild improvement. Patient is also tolerating PST this am. Repeat CXR in the am. Patient is still hypertensive, will added norvasc for better control. 06/26: Patient started T-piece trials, H/H remained stable. Surgery plans to remove chest tube once weaned off ventilator. 06/27: Chest tube placed to waterseal, T-piece trial trials ongoing. 06/29: Chest tube removed by surgery today, 07/01: Transfer from ICU on 06/30. Patient was stable with a trach and T-piece on 5 L. Tolerating tube feeds. 07/02: Patient remains on T-piece with trach in place. On 5 L of O2. She is alert and responds appropriately but not well due to trach tube. Tolerating tube feeds. Appears comfortable. No complaints. No new events reported. Case management reports patient with plans for LTAC placement. 07/06: Rested overnight. And continue to tolerate T-piece at 28% and 5L. Continue trazadone and melatonin at night for sleep and pain control with PRN analgesia. Discussed possibility of down sizing the trach to an 8 [place]iley with General Surgery. Per Surgery downsizing would not be easy nor safe at this time. Plan to order #10 [facility] instead. Case management to arrange possible placement SNF vs subacute rehab. 07/07: JEREMIAS overnight. New report of BLE pain and swelling, per patient was on gabapentin and smooth muscle relaxers at home. BLE did appear swollen with palpable pedal pulses. Will get BLE doppler, resume gabapentin, and continue PRN analgesic for pain control. Continue mobility/strenght and conditioning with PT. Electrolytes repleted, repeat labs in the am. neurology consulted today for evaluation of diffuse weakness r/o MG !! Assessment and Plan # Diffuse weakness -r/o MG -she is with mostly proximal weakness Bilateral upper and lower -no sign of cranial nerves involvement, -No sign to suggest MG based on exam. -findings in Hx and exam is most likley related to ICU Myopathy/ neuropathy -pt. will benefit from extensive PT/Rehabilitation -Check B12 and A1C,CK,TSH #Acute Pain - New report of BLE pain and swelling - BLE did appear swollen with palpable pedal pulses - BLE doppler pending - Resume gabapentin - Continue Lidocaine patch and PRN analgesic for pain control - Maintenance of sleep-wake cycle, continue Trazadone and melatonin - Continue mobility/strenght and conditioning with PT #Diabetes mellitus type 2 -Continue SSI Q6hrs -Lantus Qhs -Avoid Hypoglycemia #Acute Hypoxic Respiratory Failure -S/p emergent cricothyroidectomy with surgery with 8.00 ETT #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 from dental caries #Leukocytosis-improved -CT neck with contrast showed a significant right floor of mild swelling with extension into the submandibular and submental spaces, significant thickening and inflammation involving the right pharyngeal wall, with the parapharyngeal and retropharyngeal spaces at the level of the thyroid cartilage, epiglottis significantly swollen and so are the aryepiglottic folds resulting in significant airway narrowing at this level, no lymphadenopathy, symmetric submandibular and parathyroid glands, S few scattered caries but no periapical lucencies, nonspecific calcification along the right lateral oropharynx, no definite stone seen within the territory of the submandibular gland ducts, no suspicious rashes lesion #Hypokalemia -K repleted #Right-sided pneumothorax -s/p Right chest tube removed 06/29 -06/13 bronchoscopy showed possible blood clot in left lung which may be acting as mucous plug however it was left in place due to possible bleeding inside lung if removed. -06/16 CT chest shows moderate right pneumothorax with collapse of right upper lobe, right thoracostomy tube terminates at the collapsed right upper lobe, bilateral bronchus opacities compatible with infectious/inflammatory etiology, bilateral small pleural effusion, extensive subcutaneous air, small fluid collection in the anterior mediastinum is nonspecific #Hypertension #s/p Cardiac arrest -Patient s/p cardiac arrest with ROSC on 06/14. -S/p vasopressor support with Levophed and Fabian-Synephrine -06/13 Echocardiogram EF 65-70% -BP is stable continue current anihypertensive regimen -Continue blood pressure monitor per protocol -PRN labetalol for SBP greater than 160 -CT brain and or MRI brain r/o bleeding , and or water shed infarct !!! #Coagulopathy-resolved #Acute blood loss anemia-resolved -Patient was on coumadin at home -Continue Lovenix SubQ -Transfuse hemoglobin less than 7 -Monitor for signs of bleeding #GI/DVT Prophylaxis -PPI- Pepcid -Continue AC-Lovenox -SCDs to BLE while in bed The high probability of a clinically significant, sudden or life threatening deterioration of the [multiple] system(s) required my full and direct attention, intervention and personal management. The aggregate critical care time was [60] minutes. This time is in addition to time spent performing reported procedures but includes the following: [x] Data Review and interpretation [x] Patient assessment and monitoring of vital signs [x] Documentation [x] Medication orders and management Disposition Plan: ICU Total Time Spent with Patient (Minutes): 45
--- NOTE | 2021-07-08 12:09 | Progress Note ---
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 07/08/21: Continue ICU. Once trach downsized may consider transition to step down if ICU bed is needed. Hopeful placement soon. PT/OT. 07/05/21: Continue ICU/IMCU status. Patient is stable for speech as well as PT/OT. Please reconsult them. [facility] has been denied for LTACH so will attempt to get patient into custodial facility. Will speak with surgery about possibly downsizing trach to 8. Speech has no equipment to fit 10. Do not feel comfortable doing it myself or asking RT to change out to smaller trach. 07/04/21: Will keep in ICU/IMCU for now. Treat pain in back with [place] and discontinue Tylenol. Follow up with CM on placement. 07/03/21: Continue current level of care. CM working on placement. 07/02/21: ABG now. Patient did have low grade temp earlier today and still has a white count despite being off steroids. It is trending down. Reviewed ID note and they did mention of persistent consider ct of neck. May need to do this. If done, please scan head as well. Will continue to follow. Spoke with RT a bout obtaining ABG. 07/01/21: Continue T-piece. Follow up speech recs. Follow up electrolytes. PT/OT. Stable for transfer when bed available 06/30/21: Aggressive replacement of electrolytes. Will repeat chemistry tonight around 8. please call for orders as we would like to keep her K at 4 and Mag at 2. Chemistry in the am. Stable for transfer to telemetry floor. 06/29/21: Speech did see but patient had decreased voice quality and increased wob so aborted. Will ask them to assess again on Thursday. Chest tube out and ordered follow up CXR. Stable for transfer but ok with continuing monitoring in ICU. If bed needed could go to step down. 06/28/21: monitor drainage in ICU for 24 more hours. Can likely come out tomorrow. Continue in ICU for now. Once chest tube out, no objection to transfer. 06/27/21: Will place chest tube to water seal. Instructed staff if any change in respiratory status, place back on suction and obtain CXR. Otherwise will leave off. Continue T-piece as tolerated. Rehab/senior care/LTACH appropriate. STable for transfer if and when bed becomes available. 06/26/21: T-piece today. If off the vent, agree with surgery and removal of chest tube as subq emphysema is improving as well. PT has seen suggested LTACH, however if we are able to wean she may need senior care/rehab. Prognosis continues to improve. 06/25/21: Continue PSV as tolerated. Hopeful T-piece in the next 24-48 hours. Will drop steroids down further on . Can switch to daily and even change to oral. PT/OT consult, and follow up recs. May need LTACH vs rehab vs both. Continue to follow. 06/24/21: Daily PSV trials. Maybe ready for T-piece sson. Continue to wean steroids to off. IMS changed to 40q12 which is fine. Continue chest tube until off vent. Still on list for [facility] but will discuss with CM about checking into LTACH as patient will need rehab. PT/OT consult. 06/21/21: Continue current level of sedation. Chest tube does not have air leak but there is clear evidence of a PTX on right. Stripped tube at bedside and will repeat CXR in the morning. Hold on weaning sedation for now and hold on PSV trials. May need second chest tube vs vats if PTX worsens or does not resolve. Patient still on list for [facility], hopeful they will have a bed soon. Drop steroids to 40q8 starting Thursday. Monitor renal function, likely will improve. Needs more free water. Prognosis still remains guarded. 06/20/21: Restart some sedation. At least pain and maybe diprovan. Would like to wake patient up at some point and attempt some PSV trials. Labs are off this am. Large bump in white count but no fever, also no diff drawn. Could be error vs steroid related but this is in just 24 hours. Will repeat tomorrow. If spikes a temp neves culture as well. Small bump in Cr but still in normal range. Will watch. Now that peg in place, tube feeds and free water flushes. Still on list for [facility]. Patient has been steroids greater than 7 days so will have to wean. Can drop to 60q8 starting tomorrow. Prognosis still remains guarded. 06/19/21: surgery to attempt trach and peg today. Still will ask to keep on tr ansfer list for [facility] as her other issues still need to be addressed. If able to place peg, can stop clinimix, give free water and start tube feeds. Prognosis remains guarded. pH better with drop in tidal volume. 06/18/21: [facility] has agreed to accept but no ICU beds available at this time. Spoke with Dr. Vasquez yesterday and Dr. Patricia spoke with ENT there. Spoke with RT this am and patient did have a leak when cuff let down and her tidal volumes dropped to below 100. Patient remains on abx and steriods. Will consider lightening sedation tomorrow and seeing how patient does if cuff leak persists. Dropped tidal volumes to 450. Continue PPN for now. 06/17/21: spoke with surgery and they feel transfer is reasonable. I have reached out to [facility] and [facility] has spoken with someone from [facility]. Await to hear back from them. Continue supportive measures and adequate sedation for pain control. No PSV trials as of yet. Blood sugar control, increase lantus. Most likely secondary to steroids. Continue abx therapy. Guarded prognosis. 06/16/21: Renal function improved with fluids. IMS to give more fluids (LR) today which I agree with. FeNa is =0.7. Should be fluid responsive. Continue clinimix. Needs long acting insulin. Agree with lantus. Asked nursing to increase sedation now that we know that patient's mental status is stable. Picc today. Air leak test vs Neck CT on tomorrow. 06/15/21: Hopeful with worsening renal function ( likely from code on yesterday) that sedatives are just lingering from that. Still making good urine but output has fallen off. Will send urine sodium and urine cr to check Fena. Most likely this is prerenal. ordered renal ultrasound as well. Continue abx and steroids. Will start clinimix today. This should help with the free water piece. Will give another liter bolus of LR right now. Keep sedation off for now. Guarded prognosis. 06/14/21: Will discuss with surgery future plans. They have ordered steroids to help with inflammation and abx continue. All others appears stable and no acute evidence of bleeding at this time. Follow up surgery recs if any new ones. Guarded prognosis. 06/13/21: Patient to back to OR today. BLood transfusion. Will send DIC panel and may need to given cryo if over 6 units of PRBC's given. Patient will likely need trach and peg as we need to address nutrition. Chest tube placed, large bore now. Patient now with right sided effusion. Hemothorax???. Will continue to monitor output. Needs picc line as femoral should come out soon. Continue pressors. Continue sedation for pain control and comfort. Guarded prognosis. Surgery comfortable with neck and current situation so they have not request transfer. 1. Placed right femoral central line. pressors can run through this. 2. Repeat chemistry stat given bicarb of 8 and blood sugar of greater than 600. Ordering FSBS now. Earlier bicarb was 25. If accurate will need bicarb drip and vasopressin but not sure as pH on blood gas was normal done around the same time. 3. Coagulopathy is improving. INR down to 4.55 and PTT and pT improving. Will continue to give FFP. Ordered more vitamin K. H/H is stable but patient is oozing from neck and mouth. 4. Vasopressor for blood pressure. Need to keep map 65 and greater 5. Lujan is needed for accurate I/O 6. Surgery called by IMS about current CT situation. They state they will reassess in the am. I have reviewed the images myself. If I can position the patient safely without compromising the airway after adequate sedation, may cons ider placing chest tube now as INR is better and FFP is hanging. Patient is morbidly obese so shits could move the ET tube so if not safe, will wait until surgery comes in the morning. 7. Would not attempt to pass OG or NG tube given current situation in neck 8. Will discuss with surgery tomorrow but I feel this patient should be transferred to a tertiary care facility with ENT as we do not have that service here. CCT 31 minutes. Subjective Date of service: 07/08/21 Interval history: Stable on T-piece. Going to OR today for trach change out. Objective Vital Signs - 12hr 07/08/21 07/08/21 07/08/21 01:00 02:00 03:00 Temperature Pulse Rate 96 H 94 H 95 H Pulse Rate [ From Monitor] Respiratory 25 H 27 H 24 Rate Blood Pressure 132/66 124/72 128/80 O2 Sat by Pulse 96 95 97 Oximetry O2 Sat by Pulse Oximetry [ Assessment] 07/08/21 07/08/21 07/08/21 04:00 05:00 06:00 Temperature Pulse Rate 93 H 95 H 93 H Pulse Rate [ 93 H From Monitor] Respiratory 23 23 32 H Rate Blood Pressure 139/74 148/82 155/98 O2 Sat by Pulse 98 94 98 Oximetry O2 Sat by Pulse Oximetry [ Assessment] 07/08/21 07/08/21 07/08/21 07:00 08:00 09:00 Temperature 99.5 F Pulse Rate 90 90 94 H Pulse Rate [ 87 From Monitor] Respiratory 19 19 28 H Rate Blood Pressure 155/86 152/86 139/77 O2 Sat by Pulse 98 98 97 Oximetry O2 Sat by Pulse 98 Oximetry [ Assessment] 07/08/21 07/08/21 07/08/21 09:53 10:00 11:00 Temperature Pulse Rate 96 H 106 H 89 Pulse Rate [ From Monitor] Respiratory 26 H 25 H Rate Blood Pressure 136/77 152/87 156/85 O2 Sat by Pulse 98 98 Oximetry O2 Sat by Pulse Oximetry [ Assessment] Constitutional: alert, other (on vent trach in place) Eyes: non-icteric ENT: oropharynx moist Neck: other (trach in place) Ascultation: Bilateral: clear Percussion: Bilateral: not dull Cardiovascular: regular rate and rhythm Gastrointestinal: normoactive bowel sounds, soft Integumentary: other (subq emphysema) Extremities: no edema, other (subq emphysema) Neurologic: normal mental status CBC and BMP: 07/08/21 04:20 07/08/21 04:20 ABG, PT/INR, D-dimer: ABG ABG pH 7.448 pH Units (7.350-7.450) 07/04/21 01:44 POC ABG pCO2 25.6 mmHg (32.0-48.0) L 06/13/21 04:31 ABG pCO2 39.5 mm Hg 07/04/21 01:44 POC ABG pO2 138.8 mmHg (83-108) H 06/13/21 04:31 ABG pO2 107.7 mm Hg (80.0-90.0) H 07/04/21 01:44 POC ABG HCO3 21.4 06/13/21 04:31 ABG O2 Saturation 98.0 % (95.0-99.0) 07/04/21 01:44 PT/INR, D-dimer PT 18.3 Sec. (12.2-14.9) H 06/20/21 04:33 INR 1.37 (0.87-1.13) H 06/20/21 04:33 D-Dimer 1244.63 ng/mlDDU (0-234) H 06/13/21 Unknown Abnormal lab findings: Abnormal Labs 06/11/21 06/11/21 06/11/21 15:23 15:23 19:20 WBC 12.0 H RBC Hgb Hct MCV 72 L MCH 21 L RDW 17.5 H Plt Count Lymph % (Auto) 12.9 L Clark % (Auto) 8.6 H Lymph # (Auto) Clark # (Auto) 1.0 H Seg Neutrophils % 77.4 H Seg Neuts % (Manual) Lymphocytes % (Manual) Monocytes % (Manual) Seg Neutrophils # 9.3 H Seg Neutrophils # Man Lymphocytes # (Manual) Monocytes # (Manual) PT INR APTT Fibrinogen D-Dimer ABG pH POC ABG pCO2 POC ABG pO2 ABG pO2 ABG HCO3 ABG O2 Saturation ABG Base Excess ABG Hemoglobin ABG Oxyhemoglobin Oxyhemoglobin Sodium Potassium Chloride Carbon Dioxide BUN Creatinine Glucose 144 H POC Glucose Lactic Acid Calcium Phosphorus Magnesium AST ALT Alkaline Phosphatase C-Reactive Protein Total Protein Albumin Triglycerides Ur Specific [place] Urine Creatinine Crossmatch See Detail 06/11/21 06/11/21 06/11/21 19:29 19:29 23:21 WBC 15.8 H RBC Hgb 9.4 L Hct MCV 72 L MCH 22 L RDW 17.4 H Plt Count Lymph % (Auto) 9.2 L [place] % (Auto) Lymph # (Auto) Clark # (Auto) Seg Neutrophils % 89.0 H Seg Neuts % (Manual) Lymphocytes % (Manual) Monocytes % (Manual) Seg Neutrophils # 14.0 H Seg Neutrophils # Man Lymphocytes # (Manual) Monocytes # (Manual) PT 72.9 H INR 8.18 H* APTT 71.7 H* Fibrinogen D-Dimer ABG pH POC ABG pCO2 POC ABG pO2 ABG pO2 ABG HCO3 ABG O2 Saturation ABG Base Excess ABG Hemoglobin ABG Oxyhemoglobin Oxyhemoglobin Sodium 149 H D Potassium Chloride 124.3 H Carbon Dioxide 8 L* D BUN Creatinine 0.3 L Glucose 628 H* POC Glucose Lactic Acid Calcium 2.4 L* D Phosphorus Magnesium AST ALT < 5 L Alkaline Phosphatase 19 L C-Reactive Protein Total Protein 1.6 L D Albumin 0.8 L Triglycerides Ur Specific [place] Urine Creatinine Crossmatch 06/11/21 06/11/21 06/11/21 23:21 23:22 23:42 WBC RBC Hgb Hct MCV MCH 27 L RDW 22.2 H Plt Count 131 L Lymph % (Auto) Clark % (Auto) Lymph # (Auto) Clark # (Auto) Seg Neutrophils % Seg Neuts % (Manual) Lymphocytes % (Manual) Monocytes % (Manual) Seg Neutrophils # Seg Neutrophils # Man Lymphocytes # (Manual) Monocytes # (Manual) PT 46.3 H INR 4.55 H APTT 54.8 H Fibrinogen D-Dimer ABG pH POC ABG pCO2 POC ABG pO2 325.9 H ABG pO2 ABG HCO3 ABG O2 Saturation ABG Base Excess ABG Hemoglobin 8.0 L ABG Oxyhemoglobin 99.0 H Oxyhemoglobin Sodium Potassium Chloride Carbon Dioxide BUN Creatinine Glucose POC Glucose Lactic Acid Calcium Phosphorus Magnesium AST ALT Alkaline Phosphatase C-Reactive Protein Total Protein Albumin Triglycerides Ur Specific [place] Urine Creatinine Crossmatch 06/12/21 06/12/21 06/12/21 01:45 01:45 01:45 WBC 21.6 H RBC 3.04 L Hgb 6.7 L D Hct 22.4 L D MCV 74 L MCH 22 L RDW 18.9 H Plt Count Lymph % (Auto) Clark % (Auto) Lymph # (Auto) Clark # (Auto) Seg Neutrophils % Seg Neuts % (Manual) 76.0 H Lymphocytes % (Manual) 2.0 L Monocytes % (Manual) 8.0 H Seg Neutrophils # Seg Neutrophils # Man 16.4 H Lymphocytes # (Manual) 0.4 L Monocytes # (Manual) 1.7 H PT 25.4 H INR 2.10 H APTT Fibrinogen D-Dimer ABG pH POC ABG pCO2 POC ABG pO2 ABG pO2 ABG HCO3 ABG O2 Saturation ABG Base Excess ABG Hemoglobin ABG Oxyhemoglobin Oxyhemoglobin Sodium Potassium 5.6 H D Chloride Carbon Dioxide 20 L D BUN Creatinine Glucose 368 H POC Glucose Lactic Acid Calcium 7.1 L D Phosphorus Magnesium AST ALT Alkaline Phosphatase C-Reactive Protein Total Protein 5.3 L D Albumin 3.1 L Triglycerides Ur Specific [place] Urine Creatinine Crossmatch 06/12/21 06/12/21 06/12/21 02:05 04:41 11:05 WBC 14.6 H RBC 3.52 L Hgb 8.5 L Hct 27.7 L MCV MCH 24 L RDW 20.9 H Plt Count Lymph % (Auto) [place] % (Auto) Lymph # (Auto) Clark # (Auto) Seg Neutrophils % Seg Neuts % (Manual) Lymphocytes % (Manual) Monocytes % (Manual) Seg Neutrophils # Seg Neutrophils # Man Lymphocytes # (Manual) Monocytes # (Manual) PT INR APTT Fibrinogen D-Dimer ABG pH POC ABG pCO2 POC ABG pO2 224.6 H ABG pO2 ABG HCO3 ABG O2 Saturation ABG Base Excess ABG Hemoglobin 7.3 L ABG Oxyhemoglobin 98.7 H Oxyhemoglobin Sodium Potassium Chloride Carbon Dioxide BUN Creatinine Glucose POC Glucose 308 H Lactic Acid Calcium Phosphorus Magnesium AST ALT Alkaline Phosphatase C-Reactive Protein Total Protein Albumin Triglycerides Ur Specific [place] Urine Creatinine Crossmatch 06/12/21 06/12/21 06/12/21 11:05 11:05 12:18 WBC RBC Hgb Hct MCV MCH RDW Plt Count Lymph % (Auto) [place] % (Auto) Lymph # (Auto) Clark # (Auto) Seg Neutrophils % Seg Neuts % (Manual) Lymphocytes % (Manual) Monocytes % (Manual) Seg Neutrophils # Seg Neutrophils # Man Lymphocytes # (Manual) Monocytes # (Manual) PT 16.8 H INR 1.23 H APTT Fibrinogen D-Dimer ABG pH POC ABG pCO2 POC ABG pO2 ABG pO2 ABG HCO3 ABG O2 Saturation ABG Base Excess ABG Hemoglobin ABG Oxyhemoglobin Oxyhemoglobin Sodium Potassium Chloride Carbon Dioxide BUN 24 H Creatinine Glucose 324 H POC Glucose 281 H Lactic Acid Calcium 7.5 L Phosphorus Magnesium AST 70 H ALT 57 H Alkaline Phosphatase C-Reactive Protein Total Protein 6.0 L Albumin 3.6 L Triglycerides Ur Specific [place] Urine Creatinine Crossmatch 06/12/21 06/12/21 06/12/21 17:00 17:00 17:00 WBC RBC Hgb 7.5 L Hct 24.0 L MCV MCH RDW Plt Count Lymph % (Auto) Clark % (Auto) Lymph # (Auto) Clark # (Auto) Seg Neutrophils % Seg Neuts % (Manual) Lymphocytes % (Manual) Monocytes % (Manual) Seg Neutrophils # Seg Neutrophils # Man Lymphocytes # (Manual) Monocytes # (Manual) PT 16.0 H INR 1.16 H APTT Fibrinogen D-Dimer ABG pH POC ABG pCO2 POC ABG pO2 ABG pO2 ABG HCO3 ABG O2 Saturation ABG Base Excess ABG Hemoglobin ABG Oxyhemoglobin Oxyhemoglobin Sodium Potassium Chloride Carbon Dioxide BUN Creatinine Glucose POC Glucose Lactic Acid Calcium Phosphorus Magnesium AST ALT Alkaline Phosphatase C-Reactive Protein Total Protein Albumin Triglycerides Ur Specific [place] 1.035 H Urine Creatinine Crossmatch 06/12/21 06/12/21 06/12/21 18:06 23:00 23:05 WBC RBC Hgb 7.6 L Hct 23.5 L MCV MCH RDW Plt Count Lymph % (Auto) Clark % (Auto) Lymph # (Auto) Clark # (Auto) Seg Neutrophils % Seg Neuts % (Manual) Lymphocytes % (Manual) Monocytes % (Manual) Seg Neutrophils # Seg Neutrophils # Man Lymphocytes # (Manual) Monocytes # (Manual) PT INR APTT Fibrinogen D-Dimer ABG pH POC ABG pCO2 POC ABG pO2 ABG pO2 ABG HCO3 ABG O2 Saturation ABG Base Excess ABG Hemoglobin ABG Oxyhemoglobin Oxyhemoglobin Sodium Potassium Chloride Carbon Dioxide BUN Creatinine Glucose POC Glucose 257 H 300 H Lactic Acid Calcium Phosphorus Magnesium AST ALT Alkaline Phosphatase C-Reactive Protein Total Protein Albumin Triglycerides Ur Specific [place] Urine Creatinine Crossmatch 06/13/21 06/13/21 06/13/21 04:31 05:19 07:30 WBC RBC Hgb 6.8 L Hct 21.7 L MCV MCH RDW Plt Count Lymph % (Auto) Clark % (Auto) Lymph # (Auto) Clark # (Auto) Seg Neutrophils % Seg Neuts % (Manual) Lymphocytes % (Manual) Monocytes % (Manual) Seg Neutrophils # Seg Neutrophils # Man Lymphocytes # (Manual) Monocytes # (Manual) PT INR APTT Fibrinogen D-Dimer ABG pH 7.541 H POC ABG pCO2 25.6 L POC ABG pO2 138.8 H ABG pO2 ABG HCO3 ABG O2 Saturation ABG Base Excess ABG Hemoglobin 7.3 L ABG Oxyhemoglobin 98.1 H Oxyhemoglobin Sodium Potassium Chloride Carbon Dioxide BUN Creatinine Glucose POC Glucose 286 H Lactic Acid Calcium Phosphorus Magnesium AST ALT Alkaline Phosphatase C-Reactive Protein Total Protein Albumin Triglycerides Ur Specific [place] Urine Creatinine Crossmatch 06/13/21 06/13/21 06/13/21 07:30 12:04 14:50 WBC RBC Hgb Hct MCV MCH RDW Plt Count Lymph % (Auto) [place] % (Auto) Lymph # (Auto) Clark # (Auto) Seg Neutrophils % Seg Neuts % (Manual) Lymphocytes % (Manual) Monocytes % (Manual) Seg Neutrophils # Seg Neutrophils # Man Lymphocytes # (Manual) Monocytes # (Manual) PT INR APTT Fibrinogen D-Dimer ABG pH 7.039 L* 7.182 L* POC ABG pCO2 POC ABG pO2 ABG pO2 63.1 L ABG HCO3 17.4 L ABG O2 Saturation 73.4 L ABG Base Excess -12.6 L -7.1 L ABG Hemoglobin 7.7 L 6.9 L ABG Oxyhemoglobin Oxyhemoglobin 71.8 L 93.5 L Sodium Potassium Chloride 108.9 H Carbon Dioxide BUN 28 H Creatinine Glucose 293 H POC Glucose Lactic Acid Calcium 7.2 L Phosphorus Magnesium AST 106 H ALT 92 H Alkaline Phosphatase C-Reactive Protein Total Protein 5.6 L Albumin 3.3 L Triglycerides Ur Specific [place] Urine Creatinine Crossmatch 06/13/21 06/13/21 06/13/21 14:54 15:45 17:34 WBC RBC Hgb Hct MCV MCH RDW Plt Count Lymph % (Auto) [place] % (Auto) Lymph # (Auto) [place] # (Auto) Seg Neutrophils % Seg Neuts % (Manual) Lymphocytes % (Manual) Monocytes % (Manual) Seg Neutrophils # Seg Neutrophils # Man Lymphocytes # (Manual) Monocytes # (Manual) PT INR APTT Fibrinogen D-Dimer ABG pH POC ABG pCO2 POC ABG pO2 ABG pO2 178.4 H ABG HCO3 ABG O2 Saturation 99.1 H ABG Base Excess ABG Hemoglobin 8.0 L ABG Oxyhemoglobin Oxyhemoglobin Sodium Potassium Chloride 107.3 H Carbon Dioxide 19 L BUN 33 H Creatinine 1.5 H Glucose 379 H POC Glucose Lactic Acid 5.30 H* Calcium 6.8 L Phosphorus Magnesium AST ALT Alkaline Phosphatase C-Reactive Protein Total Protein Albumin Triglycerides Ur Specific [place] Urine Creatinine Crossmatch 06/13/21 06/13/21 06/13/21 17:40 23:29 Unknown WBC 22.5 H RBC 3.16 L Hgb 8.0 L Hct 26.0 L MCV MCH 26 L RDW 21.4 H Plt Count Lymph % (Auto) [place] % (Auto) Lymph # (Auto) Clark # (Auto) Seg Neutrophils % Seg Neuts % (Manual) 88.0 H Lymphocytes % (Manual) 4.0 L Monocytes % (Manual) Seg Neutrophils # Seg Neutrophils # Man 19.8 H Lymphocytes # (Manual) 0.9 L Monocytes # (Manual) 1.4 H PT INR APTT Fibrinogen D-Dimer ABG pH POC ABG pCO2 POC ABG pO2 ABG pO2 ABG HCO3 ABG O2 Saturation ABG Base Excess ABG Hemoglobin ABG Oxyhemoglobin Oxyhemoglobin Sodium Potassium Chloride Carbon Dioxide BUN Creatinine Glucose POC Glucose 294 H 288 H Lactic Acid Calcium Phosphorus Magnesium AST ALT Alkaline Phosphatase C-Reactive Protein Total Protein Albumin Triglycerides Ur Specific [place] Urine Creatinine Crossmatch 06/13/21 06/14/21 06/14/21 Unknown 05:39 06:15 WBC RBC 2.93 L Hgb 7.2 L Hct 23.2 L MCV MCH 25 L RDW 21.2 H Plt Count Lymph % (Auto) Clark % (Auto) Lymph # (Auto) [place] # (Auto) Seg Neutrophils % Seg Neuts % (Manual) Lymphocytes % (Manual) Monocytes % (Manual) Seg Neutrophils # Seg Neutrophils # Man Lymphocytes # (Manual) Monocytes # (Manual) PT 17.6 H INR 1.31 H APTT Fibrinogen 546 H D-Dimer 1244.63 H ABG pH POC ABG pCO2 POC ABG pO2 ABG pO2 ABG HCO3 ABG O2 Saturation ABG Base Excess ABG Hemoglobin ABG Oxyhemoglobin Oxyhemoglobin Sodium Potassium Chloride Carbon Dioxide BUN Creatinine Glucose POC Glucose 246 H Lactic Acid Calcium Phosphorus Magnesium AST ALT Alkaline Phosphatase C-Reactive Protein Total Protein Albumin Triglycerides Ur Specific [place] Urine Creatinine Crossmatch 06/14/21 06/14/21 06/14/21 06:15 06:15 09:13 WBC RBC Hgb Hct MCV MCH RDW Plt Count Lymph % (Auto) Clark % (Auto) Lymph # (Auto) Clark # (Auto) Seg Neutrophils % Seg Neuts % (Manual) Lymphocytes % (Manual) Monocytes % (Manual) Seg Neutrophils # Seg Neutrophils # Man Lymphocytes # (Manual) Monocytes # (Manual) PT INR APTT Fibrinogen D-Dimer ABG pH POC ABG pCO2 POC ABG pO2 ABG pO2 183.0 H ABG HCO3 ABG O2 Saturation 99.2 H ABG Base Excess ABG Hemoglobin 6.6 L ABG Oxyhemoglobin Oxyhemoglobin Sodium 147 H Potassium Chloride 112.5 H Carbon Dioxide 21 L BUN 36 H Creatinine 1.4 H Glucose 281 H POC Glucose Lactic Acid Calcium 6.9 L Phosphorus Magnesium AST ALT Alkaline Phosphatase C-Reactive Protein Total Protein Albumin Triglycerides 189 H Ur Specific [place] Urine Creatinine Crossmatch 06/14/21 06/14/21 06/14/21 10:45 12:16 13:30 WBC RBC Hgb 7.1 L Hct 22.3 L MCV MCH RDW Plt Count Lymph % (Auto) [place] % (Auto) Lymph # (Auto) [place] # (Auto) Seg Neutrophils % Seg Neuts % (Manual) Lymphocytes % (Manual) Monocytes % (Manual) Seg Neutrophils # Seg Neutrophils # Man Lymphocytes # (Manual) Monocytes # (Manual) PT INR APTT Fibrinogen D-Dimer ABG pH 7.205 L POC ABG pCO2 POC ABG pO2 ABG pO2 261.3 H ABG HCO3 ABG O2 Saturation 99.4 H ABG Base Excess -7.2 L ABG Hemoglobin 7.6 L ABG Oxyhemoglobin Oxyhemoglobin Sodium Potassium Chloride Carbon Dioxide BUN Creatinine Glucose POC Glucose 174 H Lactic Acid Calcium Phosphorus Magnesium AST ALT Alkaline Phosphatase C-Reactive Protein Total Protein Albumin Triglycerides Ur Specific [place] Urine Creatinine Crossmatch 06/14/21 06/14/21 06/15/21 17:40 18:43 00:06 WBC RBC Hgb Hct MCV MCH RDW Plt Count Lymph % (Auto) [place] % (Auto) Lymph # (Auto) Clark # (Auto) Seg Neutrophils % Seg Neuts % (Manual) Lymphocytes % (Manual) Monocytes % (Manual) Seg Neutrophils # Seg Neutrophils # Man Lymphocytes # (Manual) Monocytes # (Manual) PT INR APTT Fibrinogen D-Dimer ABG pH 7.292 L POC ABG pCO2 POC ABG pO2 ABG pO2 78.8 L ABG HCO3 ABG O2 Saturation ABG Base Excess -5.0 L ABG Hemoglobin 9.1 L ABG Oxyhemoglobin Oxyhemoglobin 93.7 L Sodium Potassium Chloride Carbon Dioxide BUN Creatinine Glucose POC Glucose 182 H 144 H Lactic Acid Calcium Phosphorus Magnesium AST ALT Alkaline Phosphatase C-Reactive Protein Total Protein Albumin Triglycerides Ur Specific [place] Urine Creatinine Crossmatch 06/15/21 06/15/21 06/15/21 03:55 03:56 10:40 WBC RBC Hgb 8.4 L Hct 25.8 L MCV MCH RDW Plt Count Lymph % (Auto) Clark % (Auto) Lymph # (Auto) Clark # (Auto) Seg Neutrophils % Seg Neuts % (Manual) Lymphocytes % (Manual) Monocytes % (Manual) Seg Neutrophils # Seg Neutrophils # Man Lymphocytes # (Manual) Monocytes # (Manual) PT INR APTT Fibrinogen D-Dimer ABG pH POC ABG pCO2 POC ABG pO2 ABG pO2 ABG HCO3 ABG O2 Saturation ABG Base Excess ABG Hemoglobin ABG Oxyhemoglobin Oxyhemoglobin Sodium 147 H Potassium Chloride 112.2 H Carbon Dioxide 21 L BUN 47 H Creatinine 1.9 H Glucose 272 H POC Glucose Lactic Acid Calcium 7.3 L Phosphorus Magnesium AST 64 H ALT 106 H Alkaline Phosphatase C-Reactive Protein Total Protein 5.1 L Albumin 2.9 L Triglycerides Ur Specific [place] Urine Creatinine 81.1 H Crossmatch 06/15/21 06/15/21 06/15/21 11:46 17:16 23:17 WBC RBC Hgb Hct MCV MCH RDW Plt Count Lymph % (Auto) [place] % (Auto) Lymph # (Auto) [place] # (Auto) Seg Neutrophils % Seg Neuts % (Manual) Lymphocytes % (Manual) Monocytes % (Manual) Seg Neutrophils # Seg Neutrophils # Man Lymphocytes # (Manual) Monocytes # (Manual) PT INR APTT Fibrinogen D-Dimer ABG pH POC ABG pCO2 POC ABG pO2 ABG pO2 ABG HCO3 ABG O2 Saturation ABG Base Excess ABG Hemoglobin ABG Oxyhemoglobin Oxyhemoglobin Sodium Potassium Chloride Carbon Dioxide BUN Creatinine Glucose POC Glucose 271 H 268 H 264 H Lactic Acid Calcium Phosphorus Magnesium AST ALT Alkaline Phosphatase C-Reactive Protein Total Protein Albumin Triglycerides Ur Specific [place] Urine Creatinine Crossmatch 06/15/21 06/15/21 06/16/21 Unknown Unknown 04:32 WBC RBC 3.21 L 3.16 L Hgb 8.4 L 8.2 L Hct 26.1 L 25.4 L MCV MCH 26 L 26 L RDW 21.3 H 21.2 H Plt Count 105 L 118 L Lymph % (Auto) [place] % (Auto) Lymph # (Auto) [place] # (Auto) Seg Neutrophils % Seg Neuts % (Manual) Lymphocytes % (Manual) Monocytes % (Manual) Seg Neutrophils # Seg Neutrophils # Man Lymphocytes # (Manual) Monocytes # (Manual) PT INR APTT Fibrinogen D-Dimer ABG pH 7.465 H POC ABG pCO2 POC ABG pO2 ABG pO2 114.1 H ABG HCO3 ABG O2 Saturation ABG Base Excess ABG Hemoglobin 8.4 L ABG Oxyhemoglobin Oxyhemoglobin Sodium Potassium Chloride Carbon Dioxide BUN Creatinine Glucose POC Glucose Lactic Acid Calcium Phosphorus Magnesium AST ALT Alkaline Phosphatase C-Reactive Protein Total Protein Albumin Triglycerides Ur Specific [place] Urine Creatinine Crossmatch 06/16/21 06/16/21 06/16/21 04:32 04:32 05:08 WBC RBC Hgb Hct MCV MCH RDW Plt Count Lymph % (Auto) [place] % (Auto) Lymph # (Auto) [place] # (Auto) Seg Neutrophils % Seg Neuts % (Manual) Lymphocytes % (Manual) Monocytes % (Manual) Seg Neutrophils # Seg Neutrophils # Man Lymphocytes # (Manual) Monocytes # (Manual) PT INR APTT Fibrinogen D-Dimer ABG pH POC ABG pCO2 POC ABG pO2 ABG pO2 ABG HCO3 ABG O2 Saturation ABG Base Excess ABG Hemoglobin ABG Oxyhemoglobin Oxyhemoglobin Sodium 148 H Potassium 3.3 L Chloride 115.1 H Carbon Dioxide 21 L BUN 54 H Creatinine 1.6 H Glucose 367 H POC Glucose 356 H Lactic Acid Calcium 7.4 L Phosphorus Magnesium AST ALT Alkaline Phosphatase C-Reactive Protein 3.30 H Total Protein Albumin Triglycerides Ur Specific [place] Urine Creatinine Crossmatch 06/16/21 06/16/21 06/16/21 05:30 11:46 17:03 WBC RBC Hgb Hct MCV MCH RDW Plt Count Lymph % (Auto) [place] % (Auto) Lymph # (Auto) [place] # (Auto) Seg Neutrophils % Seg Neuts % (Manual) Lymphocytes % (Manual) Monocytes % (Manual) Seg Neutrophils # Seg Neutrophils # Man Lymphocytes # (Manual) Monocytes # (Manual) PT INR APTT Fibrinogen D-Dimer ABG pH 7.475 H POC ABG pCO2 POC ABG pO2 ABG pO2 171.8 H ABG HCO3 ABG O2 Saturation 99.1 H ABG Base Excess ABG Hemoglobin 11.7 L ABG Oxyhemoglobin Oxyhemoglobin Sodium Potassium Chloride Carbon Dioxide BUN Creatinine Glucose POC Glucose 309 H 345 H Lactic Acid Calcium Phosphorus Magnesium AST ALT Alkaline Phosphatase C-Reactive Protein Total Protein Albumin Triglycerides Ur Specific [place] Urine Creatinine Crossmatch 06/16/21 06/16/21 06/17/21 20:18 23:22 04:50 WBC RBC Hgb Hct MCV MCH RDW Plt Count Lymph % (Auto) [place] % (Auto) Lymph # (Auto) [place] # (Auto) Seg Neutrophils % Seg Neuts % (Manual) Lymphocytes % (Manual) Monocytes % (Manual) Seg Neutrophils # Seg Neutrophils # Man Lymphocytes # (Manual) Monocytes # (Manual) PT INR APTT Fibrinogen D-Dimer ABG pH 7.479 H POC ABG pCO2 POC ABG pO2 ABG pO2 143.1 H ABG HCO3 ABG O2 Saturation ABG Base Excess ABG Hemoglobin 10.0 L ABG Oxyhemoglobin Oxyhemoglobin Sodium Potassium Chloride Carbon Dioxide BUN Creatinine Glucose POC Glucose 325 H 315 H Lactic Acid Calcium Phosphorus Magnesium AST ALT Alkaline Phosphatase C-Reactive Protein Total Protein Albumin Triglycerides Ur Specific [place] Urine Creatinine Crossmatch 06/17/21 06/17/21 06/17/21 05:18 05:30 05:30 WBC RBC 3.17 L Hgb 8.2 L Hct 25.5 L MCV MCH 26 L RDW 21.2 H Plt Count 128 L Lymph % (Auto) [place] % (Auto) Lymph # (Auto) [place] # (Auto) Seg Neutrophils % Seg Neuts % (Manual) Lymphocytes % (Manual) Monocytes % (Manual) Seg Neutrophils # Seg Neutrophils # Man Lymphocytes # (Manual) Monocytes # (Manual) PT INR APTT Fibrinogen D-Dimer ABG pH POC ABG pCO2 POC ABG pO2 ABG pO2 ABG HCO3 ABG O2 Saturation ABG Base Excess ABG Hemoglobin ABG Oxyhemoglobin Oxyhemoglobin Sodium 148 H Potassium Chloride 113.7 H Carbon Dioxide 20 L BUN 57 H Creatinine 1.4 H Glucose 351 H POC Glucose 324 H Lactic Acid Calcium 8.0 L Phosphorus 2.30 L Magnesium AST ALT Alkaline Phosphatase C-Reactive Protein Total Protein Albumin Triglycerides Ur Specific [place] Urine Creatinine Crossmatch 06/17/21 06/17/21 06/17/21 11:49 17:43 21:42 WBC RBC Hgb Hct MCV MCH RDW Plt Count Lymph % (Auto) [place] % (Auto) Lymph # (Auto) [place] # (Auto) Seg Neutrophils % Seg Neuts % (Manual) Lymphocytes % (Manual) Monocytes % (Manual) Seg Neutrophils # Seg Neutrophils # Man Lymphocytes # (Manual) Monocytes # (Manual) PT INR APTT Fibrinogen D-Dimer ABG pH POC ABG pCO2 POC ABG pO2 ABG pO2 ABG HCO3 ABG O2 Saturation ABG Base Excess ABG Hemoglobin ABG Oxyhemoglobin Oxyhemoglobin Sodium Potassium Chloride Carbon Dioxide BUN Creatinine Glucose POC Glucose 305 H 307 H 286 H Lactic Acid Calcium Phosphorus Magnesium AST ALT Alkaline Phosphatase C-Reactive Protein Total Protein Albumin Triglycerides Ur Specific [place] Urine Creatinine Crossmatch 06/17/21 06/18/21 06/18/21 23:59 04:20 04:37 WBC RBC 3.53 L Hgb 9.1 L Hct 28.7 L MCV MCH 26 L RDW 21.3 H Plt Count Lymph % (Auto) [place] % (Auto) Lymph # (Auto) [place] # (Auto) Seg Neutrophils % Seg Neuts % (Manual) Lymphocytes % (Manual) Monocytes % (Manual) Seg Neutrophils # Seg Neutrophils # Man Lymphocytes # (Manual) Monocytes # (Manual) PT INR APTT Fibrinogen D-Dimer ABG pH 7.495 H POC ABG pCO2 POC ABG pO2 ABG pO2 108.3 H ABG HCO3 ABG O2 Saturation ABG Base Excess -2.1 L ABG Hemoglobin 10.0 L ABG Oxyhemoglobin Oxyhemoglobin Sodium Potassium Chloride Carbon Dioxide BUN Creatinine Glucose POC Glucose 264 H Lactic Acid Calcium Phosphorus Magnesium AST ALT Alkaline Phosphatase C-Reactive Protein Total Protein Albumin Triglycerides Ur Specific [place] Urine Creatinine Crossmatch 06/18/21 06/18/21 06/18/21 04:37 05:32 11:21 WBC RBC Hgb Hct MCV MCH RDW Plt Count Lymph % (Auto) [place] % (Auto) Lymph # (Auto) [place] # (Auto) Seg Neutrophils % Seg Neuts % (Manual) Lymphocytes % (Manual) Monocytes % (Manual) Seg Neutrophils # Seg Neutrophils # Man Lymphocytes # (Manual) Monocytes # (Manual) PT INR APTT Fibrinogen D-Dimer ABG pH POC ABG pCO2 POC ABG pO2 ABG pO2 ABG HCO3 ABG O2 Saturation ABG Base Excess ABG Hemoglobin ABG Oxyhemoglobin Oxyhemoglobin Sodium 148 H Potassium Chloride 114.7 H Carbon Dioxide BUN 59 H Creatinine 1.3 H Glucose 329 H POC Glucose 293 H 291 H Lactic Acid Calcium 8.1 L Phosphorus Magnesium AST ALT Alkaline Phosphatase C-Reactive Protein Total Protein Albumin Triglycerides Ur Specific [place] Urine Creatinine Crossmatch 06/18/21 06/18/21 06/19/21 18:21 21:46 00:15 WBC RBC Hgb Hct MCV MCH RDW Plt Count Lymph % (Auto) [place] % (Auto) Lymph # (Auto) [place] # (Auto) Seg Neutrophils % Seg Neuts % (Manual) Lymphocytes % (Manual) Monocytes % (Manual) Seg Neutrophils # Seg Neutrophils # Man Lymphocytes # (Manual) Monocytes # (Manual) PT INR APTT Fibrinogen D-Dimer ABG pH POC ABG pCO2 POC ABG pO2 ABG pO2 ABG HCO3 ABG O2 Saturation ABG Base Excess ABG Hemoglobin ABG Oxyhemoglobin Oxyhemoglobin Sodium Potassium Chloride Carbon Dioxide BUN Creatinine Glucose POC Glucose 239 H 259 H 310 H Lactic Acid Calcium Phosphorus Magnesium AST ALT Alkaline Phosphatase C-Reactive Protein Total Protein Albumin Triglycerides Ur Specific [place] Urine Creatinine Crossmatch 06/19/21 06/19/21 06/19/21 04:00 04:00 04:50 WBC RBC 3.64 L Hgb 9.1 L Hct 29.1 L MCV MCH 25 L RDW 21.5 H Plt Count Lymph % (Auto) [place] % (Auto) Lymph # (Auto) [place] # (Auto) Seg Neutrophils % Seg Neuts % (Manual) Lymphocytes % (Manual) Monocytes % (Manual) Seg Neutrophils # Seg Neutrophils # Man Lymphocytes # (Manual) Monocytes # (Manual) PT INR APTT Fibrinogen D-Dimer ABG pH POC ABG pCO2 POC ABG pO2 ABG pO2 78.9 L ABG HCO3 ABG O2 Saturation ABG Base Excess -3.2 L ABG Hemoglobin 7.6 L ABG Oxyhemoglobin Oxyhemoglobin Sodium 148 H Potassium Chloride 114.9 H Carbon Dioxide 19 L BUN 59 H Creatinine Glucose 345 H POC Glucose Lactic Acid Calcium 8.1 L Phosphorus 4.60 H D Magnesium 2.40 H AST ALT Alkaline Phosphatase C-Reactive Protein Total Protein Albumin Triglycerides Ur Specific [place] Urine Creatinine Crossmatch 06/19/21 06/19/21 06/19/21 06:28 11:11 17:20 WBC RBC Hgb Hct MCV MCH RDW Plt Count Lymph % (Auto) [place] % (Auto) Lymph # (Auto) [place] # (Auto) Seg Neutrophils % Seg Neuts % (Manual) Lymphocytes % (Manual) Monocytes % (Manual) Seg Neutrophils # Seg Neutrophils # Man Lymphocytes # (Manual) Monocytes # (Manual) PT 29.7 H INR 2.57 H APTT Fibrinogen D-Dimer ABG pH POC ABG pCO2 POC ABG pO2 ABG pO2 ABG HCO3 ABG O2 Saturation ABG Base Excess ABG Hemoglobin ABG Oxyhemoglobin Oxyhemoglobin Sodium Potassium Chloride Carbon Dioxide BUN Creatinine Glucose POC Glucose 279 H 275 H Lactic Acid Calcium Phosphorus Magnesium AST ALT Alkaline Phosphatase C-Reactive Protein Total Protein Albumin Triglycerides Ur Specific [place] Urine Creatinine Crossmatch 06/19/21 06/19/21 06/19/21 18:30 19:20 23:27 WBC RBC Hgb 8.0 L Hct 25.0 L MCV MCH RDW Plt Count Lymph % (Auto) [place] % (Auto) Lymph # (Auto) [place] # (Auto) Seg Neutrophils % Seg Neuts % (Manual) Lymphocytes % (Manual) Monocytes % (Manual) Seg Neutrophils # Seg Neutrophils # Man Lymphocytes # (Manual) Monocytes # (Manual) PT INR APTT Fibrinogen D-Dimer ABG pH POC ABG pCO2 POC ABG pO2 ABG pO2 ABG HCO3 ABG O2 Saturation ABG Base Excess ABG Hemoglobin ABG Oxyhemoglobin Oxyhemoglobin Sodium Potassium Chloride Carbon Dioxide BUN Creatinine Glucose POC Glucose 279 H 290 H Lactic Acid Calcium Phosphorus Magnesium AST ALT Alkaline Phosphatase C-Reactive Protein Total Protein Albumin Triglycerides Ur Specific [place] Urine Creatinine Crossmatch 06/20/21 06/20/21 06/20/21 00:00 04:33 04:33 WBC 22.3 H RBC 3.31 L Hgb 7.4 L 8.5 L Hct 22.5 L 26.5 L MCV MCH 26 L RDW 21.5 H Plt Count Lymph % (Auto) [place] % (Auto) Lymph # (Auto) [place] # (Auto) Seg Neutrophils % Seg Neuts % (Manual) Lymphocytes % (Manual) Monocytes % (Manual) Seg Neutrophils # Seg Neutrophils # Man Lymphocytes # (Manual) Monocytes # (Manual) PT INR APTT Fibrinogen D-Dimer ABG pH POC ABG pCO2 POC ABG pO2 ABG pO2 ABG HCO3 ABG O2 Saturation ABG Base Excess ABG Hemoglobin ABG Oxyhemoglobin Oxyhemoglobin Sodium 148 H Potassium Chloride 114.2 H Carbon Dioxide BUN 70 H Creatinine 1.4 H Glucose 313 H POC Glucose Lactic Acid Calcium 8.2 L Phosphorus Magnesium 2.50 H AST ALT Alkaline Phosphatase C-Reactive Protein Total Protein Albumin Triglycerides Ur Specific [place] Urine Creatinine Crossmatch 06/20/21 06/20/21 06/20/21 04:33 05:27 11:21 WBC RBC Hgb Hct MCV MCH RDW Plt Count Lymph % (Auto) [place] % (Auto) Lymph # (Auto) [place] # (Auto) Seg Neutrophils % Seg Neuts % (Manual) Lymphocytes % (Manual) Monocytes % (Manual) Seg Neutrophils # Seg Neutrophils # Man Lymphocytes # (Manual) Monocytes # (Manual) PT 18.3 H INR 1.37 H APTT Fibrinogen D-Dimer ABG pH POC ABG pCO2 POC ABG pO2 ABG pO2 ABG HCO3 ABG O2 Saturation ABG Base Excess ABG Hemoglobin ABG Oxyhemoglobin Oxyhemoglobin Sodium Potassium Chloride Carbon Dioxide BUN Creatinine Glucose POC Glucose 288 H 306 H Lactic Acid Calcium Phosphorus Magnesium AST ALT Alkaline Phosphatase C-Reactive Protein Total Protein Albumin Triglycerides Ur Specific [place] Urine Creatinine Crossmatch 06/20/21 06/20/21 06/20/21 12:23 15:56 18:20 WBC RBC Hgb 8.2 L 8.1 L Hct 25.9 L 25.5 L MCV MCH RDW Plt Count Lymph % (Auto) [place] % (Auto) Lymph # (Auto) [place] # (Auto) Seg Neutrophils % Seg Neuts % (Manual) Lymphocytes % (Manual) Monocytes % (Manual) Seg Neutrophils # Seg Neutrophils # Man Lymphocytes # (Manual) Monocytes # (Manual) PT INR APTT Fibrinogen D-Dimer ABG pH POC ABG pCO2 POC ABG pO2 ABG pO2 ABG HCO3 ABG O2 Saturation ABG Base Excess ABG Hemoglobin ABG Oxyhemoglobin Oxyhemoglobin Sodium Potassium Chloride Carbon Dioxide BUN Creatinine Glucose POC Glucose 293 H Lactic Acid Calcium Phosphorus Magnesium AST ALT Alkaline Phosphatase C-Reactive Protein Total Protein Albumin Triglycerides Ur Specific [place] Urine Creatinine Crossmatch 06/20/21 06/21/21 06/21/21 23:11 04:20 04:42 WBC 15.1 H RBC 2.84 L Hgb 7.3 L Hct 23.1 L MCV MCH 26 L RDW 21.5 H Plt Count Lymph % (Auto) 3.5 L [place] % (Auto) 11.7 H Lymph # (Auto) 0.5 L [place] # (Auto) 1.8 H Seg Neutrophils % 84.7 H Seg Neuts % (Manual) Lymphocytes % (Manual) Monocytes % (Manual) Seg Neutrophils # 12.8 H Seg Neutrophils # Man Lymphocytes # (Manual) Monocytes # (Manual) PT INR APTT Fibrinogen D-Dimer ABG pH POC ABG pCO2 POC ABG pO2 ABG pO2 98.5 H ABG HCO3 ABG O2 Saturation ABG Base Excess ABG Hemoglobin 7.2 L ABG Oxyhemoglobin Oxyhemoglobin Sodium Potassium Chloride Carbon Dioxide BUN Creatinine Glucose POC Glucose 206 H Lactic Acid Calcium Phosphorus Magnesium AST ALT Alkaline Phosphatase C-Reactive Protein Total Protein Albumin Triglycerides Ur Specific [place] Urine Creatinine Crossmatch 06/21/21 06/21/21 06/21/21 04:42 05:08 11:06 WBC RBC Hgb Hct MCV MCH RDW Plt Count Lymph % (Auto) [place] % (Auto) Lymph # (Auto) [place] # (Auto) Seg Neutrophils % Seg Neuts % (Manual) Lymphocytes % (Manual) Monocytes % (Manual) Seg Neutrophils # Seg Neutrophils # Man Lymphocytes # (Manual) Monocytes # (Manual) PT INR APTT Fibrinogen D-Dimer ABG pH POC ABG pCO2 POC ABG pO2 ABG pO2 ABG HCO3 ABG O2 Saturation ABG Base Excess ABG Hemoglobin ABG Oxyhemoglobin Oxyhemoglobin Sodium 151 H Potassium Chloride 117.2 H Carbon Dioxide 21 L BUN 75 H Creatinine 1.6 H Glucose 216 H POC Glucose 190 H 204 H Lactic Acid Calcium 7.9 L Phosphorus Magnesium 2.60 H AST ALT Alkaline Phosphatase C-Reactive Protein Total Protein Albumin Triglycerides 254 H Ur Specific [place] Urine Creatinine Crossmatch 06/21/21 06/21/21 06/21/21 14:00 16:42 21:52 WBC RBC Hgb 7.1 L 7.2 L Hct 22.0 L 22.1 L MCV MCH RDW Plt Count Lymph % (Auto) [place] % (Auto) Lymph # (Auto) [place] # (Auto) Seg Neutrophils % Seg Neuts % (Manual) Lymphocytes % (Manual) Monocytes % (Manual) Seg Neutrophils # Seg Neutrophils # Man Lymphocytes # (Manual) Monocytes # (Manual) PT INR APTT Fibrinogen D-Dimer ABG pH POC ABG pCO2 POC ABG pO2 ABG pO2 ABG HCO3 ABG O2 Saturation ABG Base Excess ABG Hemoglobin ABG Oxyhemoglobin Oxyhemoglobin Sodium Potassium Chloride Carbon Dioxide BUN Creatinine Glucose POC Glucose 207 H Lactic Acid Calcium Phosphorus Magnesium AST ALT Alkaline Phosphatase C-Reactive Protein Total Protein Albumin Triglycerides Ur Specific [place] Urine Creatinine Crossmatch 06/21/21 06/22/21 06/22/21 23:29 04:30 04:30 WBC 16.8 H RBC 2.93 L Hgb 7.4 L Hct 23.9 L MCV MCH 25 L RDW 21.8 H Plt Count Lymph % (Auto) [place] % (Auto) Lymph # (Auto) [place] # (Auto) Seg Neutrophils % Seg Neuts % (Manual) Lymphocytes % (Manual) Monocytes % (Manual) Seg Neutrophils # Seg Neutrophils # Man Lymphocytes # (Manual) Monocytes # (Manual) PT INR APTT Fibrinogen D-Dimer ABG pH POC ABG pCO2 POC ABG pO2 ABG pO2 ABG HCO3 ABG O2 Saturation ABG Base Excess ABG Hemoglobin ABG Oxyhemoglobin Oxyhemoglobin Sodium 151 H Potassium Chloride 118.7 H Carbon Dioxide BUN 57 H Creatinine Glucose 238 H POC Glucose 273 H Lactic Acid Calcium 8.0 L Phosphorus Magnesium 2.70 H AST ALT Alkaline Phosphatase C-Reactive Protein Total Protein Albumin Triglycerides Ur Specific [place] Urine Creatinine Crossmatch 06/22/21 06/22/21 06/22/21 05:17 11:31 14:20 WBC RBC Hgb 7.4 L Hct 22.5 L MCV MCH RDW Plt Count Lymph % (Auto) [place] % (Auto) Lymph # (Auto) [place] # (Auto) Seg Neutrophils % Seg Neuts % (Manual) Lymphocytes % (Manual) Monocytes % (Manual) Seg Neutrophils # Seg Neutrophils # Man Lymphocytes # (Manual) Monocytes # (Manual) PT INR APTT Fibrinogen D-Dimer ABG pH POC ABG pCO2 POC ABG pO2 ABG pO2 ABG HCO3 ABG O2 Saturation ABG Base Excess ABG Hemoglobin ABG Oxyhemoglobin Oxyhemoglobin Sodium Potassium Chloride Carbon Dioxide BUN Creatinine Glucose POC Glucose 214 H 214 H Lactic Acid Calcium Phosphorus Magnesium AST ALT Alkaline Phosphatase C-Reactive Protein Total Protein Albumin Triglycerides Ur Specific [place] Urine Creatinine Crossmatch 06/22/21 06/22/21 06/23/21 17:18 23:47 05:33 WBC RBC Hgb Hct MCV MCH RDW Plt Count Lymph % (Auto) [place] % (Auto) Lymph # (Auto) [place] # (Auto) Seg Neutrophils % Seg Neuts % (Manual) Lymphocytes % (Manual) Monocytes % (Manual) Seg Neutrophils # Seg Neutrophils # Man Lymphocytes # (Manual) Monocytes # (Manual) PT INR APTT Fibrinogen D-Dimer ABG pH POC ABG pCO2 POC ABG pO2 ABG pO2 ABG HCO3 ABG O2 Saturation ABG Base Excess ABG Hemoglobin ABG Oxyhemoglobin Oxyhemoglobin Sodium Potassium Chloride Carbon Dioxide BUN Creatinine Glucose POC Glucose 238 H 227 H 202 H Lactic Acid Calcium Phosphorus Magnesium AST ALT Alkaline Phosphatase C-Reactive Protein Total Protein Albumin Triglycerides Ur Specific [place] Urine Creatinine Crossmatch 06/23/21 06/23/21 06/23/21 10:04 10:04 11:06 WBC 20.3 H RBC 2.71 L Hgb 7.3 L Hct 21.8 L MCV MCH 27 L RDW 22.1 H Plt Count Lymph % (Auto) [place] % (Auto) Lymph # (Auto) [place] # (Auto) Seg Neutrophils % Seg Neuts % (Manual) Lymphocytes % (Manual) Monocytes % (Manual) Seg Neutrophils # Seg Neutrophils # Man Lymphocytes # (Manual) Monocytes # (Manual) PT INR APTT Fibrinogen D-Dimer ABG pH POC ABG pCO2 POC ABG pO2 ABG pO2 ABG HCO3 ABG O2 Saturation ABG Base Excess ABG Hemoglobin ABG Oxyhemoglobin Oxyhemoglobin Sodium 151 H Potassium 3.2 L Chloride 116.9 H Carbon Dioxide BUN 40 H Creatinine Glucose 208 H POC Glucose 204 H Lactic Acid Calcium 8.0 L Phosphorus 1.80 L D Magnesium AST ALT Alkaline Phosphatase C-Reactive Protein Total Protein Albumin Triglycerides Ur Specific [place] Urine Creatinine Crossmatch 06/23/21 06/23/21 06/24/21 16:11 23:47 04:00 WBC 16.9 H RBC 2.49 L Hgb 6.6 L Hct 20.3 L MCV MCH 26 L RDW 22.6 H Plt Count Lymph % (Auto) [place] % (Auto) Lymph # (Auto) [place] # (Auto) Seg Neutrophils % Seg Neuts % (Manual) Lymphocytes % (Manual) Monocytes % (Manual) Seg Neutrophils # Seg Neutrophils # Man Lymphocytes # (Manual) Monocytes # (Manual) PT INR APTT Fibrinogen D-Dimer ABG pH POC ABG pCO2 POC ABG pO2 ABG pO2 ABG HCO3 ABG O2 Saturation ABG Base Excess ABG Hemoglobin ABG Oxyhemoglobin Oxyhemoglobin Sodium Potassium Chloride Carbon Dioxide BUN Creatinine Glucose POC Glucose 228 H 189 H Lactic Acid Calcium Phosphorus Magnesium AST ALT Alkaline Phosphatase C-Reactive Protein Total Protein Albumin Triglycerides Ur Specific [place] Urine Creatinine Crossmatch 06/24/21 06/24/21 06/24/21 04:00 05:43 06:40 WBC RBC Hgb Hct MCV MCH RDW Plt Count Lymph % (Auto) [place] % (Auto) Lymph # (Auto) [place] # (Auto) Seg Neutrophils % Seg Neuts % (Manual) Lymphocytes % (Manual) Monocytes % (Manual) Seg Neutrophils # Seg Neutrophils # Man Lymphocytes # (Manual) Monocytes # (Manual) PT INR APTT Fibrinogen D-Dimer ABG pH POC ABG pCO2 POC ABG pO2 ABG pO2 ABG HCO3 ABG O2 Saturation ABG Base Excess ABG Hemoglobin ABG Oxyhemoglobin Oxyhemoglobin Sodium 148 H Potassium 3.2 L Chloride 115.6 H Carbon Dioxide BUN 35 H Creatinine Glucose 153 H POC Glucose 134 H Lactic Acid Calcium 7.9 L Phosphorus 2.40 L D Magnesium AST ALT Alkaline Phosphatase C-Reactive Protein Total Protein Albumin Triglycerides Ur Specific [place] Urine Creatinine Crossmatch See Detail 06/24/21 06/24/21 06/24/21 11:08 16:47 21:49 WBC RBC Hgb Hct MCV MCH RDW Plt Count Lymph % (Auto) [place] % (Auto) Lymph # (Auto) [place] # (Auto) Seg Neutrophils % Seg Neuts % (Manual) Lymphocytes % (Manual) Monocytes % (Manual) Seg Neutrophils # Seg Neutrophils # Man Lymphocytes # (Manual) Monocytes # (Manual) PT INR APTT Fibrinogen D-Dimer ABG pH POC ABG pCO2 POC ABG pO2 ABG pO2 ABG HCO3 ABG O2 Saturation ABG Base Excess ABG Hemoglobin ABG Oxyhemoglobin Oxyhemoglobin Sodium Potassium Chloride Carbon Dioxide BUN Creatinine Glucose POC Glucose 153 H 201 H 132 H Lactic Acid Calcium Phosphorus Magnesium AST ALT Alkaline Phosphatase C-Reactive Protein Total Protein Albumin Triglycerides Ur Specific [place] Urine Creatinine Crossmatch 06/24/21 06/25/21 06/25/21 23:24 05:30 09:00 WBC RBC Hgb 8.3 L Hct 27.0 L MCV MCH RDW Plt Count Lymph % (Auto) [place] % (Auto) Lymph # (Auto) [place] # (Auto) Seg Neutrophils % Seg Neuts % (Manual) Lymphocytes % (Manual) Monocytes % (Manual) Seg Neutrophils # Seg Neutrophils # Man Lymphocytes # (Manual) Monocytes # (Manual) PT INR APTT Fibrinogen D-Dimer ABG pH POC ABG pCO2 POC ABG pO2 ABG pO2 ABG HCO3 ABG O2 Saturation ABG Base Excess ABG Hemoglobin ABG Oxyhemoglobin Oxyhemoglobin Sodium Potassium Chloride Carbon Dioxide BUN Creatinine Glucose POC Glucose 170 H 151 H Lactic Acid Calcium Phosphorus Magnesium AST ALT Alkaline Phosphatase C-Reactive Protein Total Protein Albumin Triglycerides Ur Specific [place] Urine Creatinine Crossmatch 06/25/21 06/25/21 06/25/21 11:29 14:24 16:48 WBC RBC Hgb 8.5 L Hct 27.5 L MCV MCH RDW Plt Count Lymph % (Auto) [place] % (Auto) Lymph # (Auto) [place] # (Auto) Seg Neutrophils % Seg Neuts % (Manual) Lymphocytes % (Manual) Monocytes % (Manual) Seg Neutrophils # Seg Neutrophils # Man Lymphocytes # (Manual) Monocytes # (Manual) PT INR APTT Fibrinogen D-Dimer ABG pH POC ABG pCO2 POC ABG pO2 ABG pO2 ABG HCO3 ABG O2 Saturation ABG Base Excess ABG Hemoglobin ABG Oxyhemoglobin Oxyhemoglobin Sodium Potassium Chloride Carbon Dioxide BUN Creatinine Glucose POC Glucose 189 H 224 H Lactic Acid Calcium Phosphorus Magnesium AST ALT Alkaline Phosphatase C-Reactive Protein Total Protein Albumin Triglycerides Ur Specific [place] Urine Creatinine Crossmatch 06/25/21 06/25/21 06/25/21 23:39 Unknown Unknown WBC 16.5 H RBC 2.90 L Hgb 8.0 L Hct 23.8 L MCV MCH RDW 22.8 H Plt Count Lymph % (Auto) [place] % (Auto) Lymph # (Auto) [place] # (Auto) Seg Neutrophils % Seg Neuts % (Manual) Lymphocytes % (Manual) Monocytes % (Manual) Seg Neutrophils # Seg Neutrophils # Man Lymphocytes # (Manual) Monocytes # (Manual) PT INR APTT Fibrinogen D-Dimer ABG pH POC ABG pCO2 POC ABG pO2 ABG pO2 ABG HCO3 ABG O2 Saturation ABG Base Excess ABG Hemoglobin ABG Oxyhemoglobin Oxyhemoglobin Sodium 149 H Potassium Chloride 115.6 H Carbon Dioxide BUN 28 H Creatinine Glucose 157 H POC Glucose 187 H Lactic Acid Calcium 8.0 L Phosphorus Magnesium AST ALT Alkaline Phosphatase C-Reactive Protein Total Protein Albumin Triglycerides Ur Specific [place] Urine Creatinine Crossmatch 06/26/21 06/26/21 06/26/21 05:22 05:29 05:29 WBC 16.2 H RBC 3.03 L Hgb 8.0 L Hct 25.1 L MCV MCH 26 L RDW 23.2 H Plt Count Lymph % (Auto) [place] % (Auto) Lymph # (Auto) [place] # (Auto) Seg Neutrophils % Seg Neuts % (Manual) Lymphocytes % (Manual) Monocytes % (Manual) Seg Neutrophils # Seg Neutrophils # Man Lymphocytes # (Manual) Monocytes # (Manual) PT INR APTT Fibrinogen D-Dimer ABG pH POC ABG pCO2 POC ABG pO2 ABG pO2 ABG HCO3 ABG O2 Saturation ABG Base Excess ABG Hemoglobin ABG Oxyhemoglobin Oxyhemoglobin Sodium 150 H Potassium Chloride 114.8 H Carbon Dioxide BUN 29 H Creatinine Glucose 229 H POC Glucose 211 H Lactic Acid Calcium 8.2 L Phosphorus Magnesium AST ALT Alkaline Phosphatase C-Reactive Protein Total Protein Albumin Triglycerides Ur Specific [place] Urine Creatinine Crossmatch 06/26/21 06/26/21 06/26/21 11:05 15:59 22:00 WBC RBC Hgb Hct MCV MCH RDW Plt Count Lymph % (Auto) [place] % (Auto) Lymph # (Auto) [place] # (Auto) Seg Neutrophils % Seg Neuts % (Manual) Lymphocytes % (Manual) Monocytes % (Manual) Seg Neutrophils # Seg Neutrophils # Man Lymphocytes # (Manual) Monocytes # (Manual) PT INR APTT Fibrinogen D-Dimer ABG pH POC ABG pCO2 POC ABG pO2 ABG pO2 ABG HCO3 ABG O2 Saturation ABG Base Excess ABG Hemoglobin ABG Oxyhemoglobin Oxyhemoglobin Sodium Potassium Chloride Carbon Dioxide BUN Creatinine Glucose POC Glucose 213 H 222 H 161 H Lactic Acid Calcium Phosphorus Magnesium AST ALT Alkaline Phosphatase C-Reactive Protein Total Protein Albumin Triglycerides Ur Specific [place] Urine Creatinine Crossmatch 06/26/21 06/27/21 06/27/21 23:24 04:15 04:15 WBC 14.3 H RBC 2.96 L Hgb 8.1 L Hct 24.6 L MCV MCH 27 L RDW 23.0 H Plt Count Lymph % (Auto) Clark % (Auto) Lymph # (Auto) Clark # (Auto) Seg Neutrophils % Seg Neuts % (Manual) Lymphocytes % (Manual) Monocytes % (Manual) Seg Neutrophils # Seg Neutrophils # Man Lymphocytes # (Manual) Monocytes # (Manual) PT INR APTT Fibrinogen D-Dimer ABG pH POC ABG pCO2 POC ABG pO2 ABG pO2 ABG HCO3 ABG O2 Saturation ABG Base Excess ABG Hemoglobin ABG Oxyhemoglobin Oxyhemoglobin Sodium 150 H Potassium Chloride 113.8 H Carbon Dioxide BUN 26 H Creatinine Glucose 246 H POC Glucose 164 H Lactic Acid Calcium 7.8 L Phosphorus Magnesium AST ALT Alkaline Phosphatase C-Reactive Protein Total Protein Albumin Triglycerides Ur Specific [place] Urine Creatinine Crossmatch 06/27/21 06/27/2106/27/22 05:44 11:07 16:06 WBC RBC Hgb Hct MCV MCH RDW Plt Count Lymph % (Auto) Clark % (Auto) Lymph # (Auto) Clark # (Auto) Seg Neutrophils % Seg Neuts % (Manual) Lymphocytes % (Manual) Monocytes % (Manual) Seg Neutrophils # Seg Neutrophils # Man Lymphocytes # (Manual) Monocytes # (Manual) PT INR APTT Fibrinogen D-Dimer ABG pH POC ABG pCO2 POC ABG pO2 ABG pO2 ABG HCO3 ABG O2 Saturation ABG Base Excess ABG Hemoglobin ABG Oxyhemoglobin Oxyhemoglobin Sodium Potassium Chloride Carbon Dioxide BUN Creatinine Glucose POC Glucose 226 H 204 H 224 H Lactic Acid Calcium Phosphorus Magnesium AST ALT Alkaline Phosphatase C-Reactive Protein Total Protein Albumin Triglycerides Ur Specific [place] Urine Creatinine Crossmatch 06/27/21 06/28/21 06/28/21 23:49 04:00 04:00 WBC 15.4 H RBC 3.05 L Hgb 8.2 L Hct 25.0 L MCV MCH 27 L RDW 22.6 H Plt Count Lymph % (Auto) Clark % (Auto) Lymph # (Auto) Clark # (Auto) Seg Neutrophils % Seg Neuts % (Manual) Lymphocytes % (Manual) Monocytes % (Manual) Seg Neutrophils # Seg Neutrophils # Man Lymphocytes # (Manual) Monocytes # (Manual) PT INR APTT Fibrinogen D-Dimer ABG pH POC ABG pCO2 POC ABG pO2 ABG pO2 ABG HCO3 ABG O2 Saturation ABG Base Excess ABG Hemoglobin ABG Oxyhemoglobin Oxyhemoglobin Sodium 152 H Potassium 3.0 L Chloride 114.9 H Carbon Dioxide BUN 24 H Creatinine Glucose 158 H POC Glucose 195 H Lactic Acid Calcium 8.1 L Phosphorus Magnesium AST ALT Alkaline Phosphatase C-Reactive Protein Total Protein Albumin Triglycerides Ur Specific [place] Urine Creatinine Crossmatch 06/28/21 06/28/21 06/28/21 05:05 11:47 17:21 WBC RBC Hgb Hct MCV MCH RDW Plt Count Lymph % (Auto) Clark % (Auto) Lymph # (Auto) Clark # (Auto) Seg Neutrophils % Seg Neuts % (Manual) Lymphocytes % (Manual) Monocytes % (Manual) Seg Neutrophils # Seg Neutrophils # Man Lymphocytes # (Manual) Monocytes # (Manual) PT INR APTT Fibrinogen D-Dimer ABG pH POC ABG pCO2 POC ABG pO2 ABG pO2 ABG HCO3 ABG O2 Saturation ABG Base Excess ABG Hemoglobin ABG Oxyhemoglobin Oxyhemoglobin Sodium Potassium Chloride Carbon Dioxide BUN Creatinine Glucose POC Glucose 121 H 164 H 166 H Lactic Acid Calcium Phosphorus Magnesium AST ALT Alkaline Phosphatase C-Reactive Protein Total Protein Albumin Triglycerides Ur Specific [place] Urine Creatinine Crossmatch 06/28/21 06/28/21 06/29/21 18:14 21:54 00:55 WBC RBC Hgb Hct MCV MCH RDW Plt Count Lymph % (Auto) Clark % (Auto) Lymph # (Auto) Clark # (Auto) Seg Neutrophils % Seg Neuts % (Manual) Lymphocytes % (Manual) Monocytes % (Manual) Seg Neutrophils # Seg Neutrophils # Man Lymphocytes # (Manual) Monocytes # (Manual) PT INR APTT Fibrinogen D-Dimer ABG pH POC ABG pCO2 POC ABG pO2 ABG pO2 ABG HCO3 ABG O2 Saturation ABG Base Excess ABG Hemoglobin ABG Oxyhemoglobin Oxyhemoglobin Sodium Potassium Chloride Carbon Dioxide BUN Creatinine Glucose POC Glucose 150 H 148 H 176 H Lactic Acid Calcium Phosphorus Magnesium AST ALT Alkaline Phosphatase C-Reactive Protein Total Protein Albumin Triglycerides Ur Specific [place] Urine Creatinine Crossmatch 06/29/21 06/29/21 06/29/21 04:00 04:00 05:20 WBC 15.3 H RBC 3.04 L Hgb 8.0 L Hct 25.0 L MCV MCH 26 L RDW 22.3 H Plt Count Lymph % (Auto) Clark % (Auto) Lymph # (Auto) Clark # (Auto) Seg Neutrophils % Seg Neuts % (Manual) Lymphocytes % (Manual) Monocytes % (Manual) Seg Neutrophils # Seg Neutrophils # Man Lymphocytes # (Manual) Monocytes # (Manual) PT INR APTT Fibrinogen D-Dimer ABG pH POC ABG pCO2 POC ABG pO2 ABG pO2 ABG HCO3 ABG O2 Saturation ABG Base Excess ABG Hemoglobin ABG Oxyhemoglobin Oxyhemoglobin Sodium Potassium 3.1 L Chloride 108.7 H Carbon Dioxide BUN 20 H Creatinine Glucose 194 H POC Glucose 185 H Lactic Acid Calcium 8.0 L Phosphorus Magnesium AST ALT Alkaline Phosphatase C-Reactive Protein Total Protein Albumin Triglycerides Ur Specific [place] Urine Creatinine Crossmatch 06/29/21 06/29/21 06/30/21 12:18 17:20 00:49 WBC RBC Hgb Hct MCV MCH RDW Plt Count Lymph % (Auto) Clark % (Auto) Lymph # (Auto) Clark # (Auto) Seg Neutrophils % Seg Neuts % (Manual) Lymphocytes % (Manual) Monocytes % (Manual) Seg Neutrophils # Seg Neutrophils # Man Lymphocytes # (Manual) Monocytes # (Manual) PT INR APTT Fibrinogen D-Dimer ABG pH POC ABG pCO2 POC ABG pO2 ABG pO2 ABG HCO3 ABG O2 Saturation ABG Base Excess ABG Hemoglobin ABG Oxyhemoglobin Oxyhemoglobin Sodium Potassium Chloride Carbon Dioxide BUN Creatinine Glucose POC Glucose 135 H 185 H 156 H Lactic Acid Calcium Phosphorus Magnesium AST ALT Alkaline Phosphatase C-Reactive Protein Total Protein Albumin Triglycerides Ur Specific [place] Urine Creatinine Crossmatch 06/30/21 06/30/21 06/30/21 04:25 04:25 08:14 WBC 13.0 H RBC 3.19 L Hgb 8.2 L Hct 26.2 L MCV MCH 26 L RDW 22.3 H Plt Count Lymph % (Auto) Clark % (Auto) Lymph # (Auto) Clark # (Auto) Seg Neutrophils % Seg Neuts % (Manual) 81.0 H Lymphocytes % (Manual) 10.0 L Monocytes % (Manual) 8.0 H Seg Neutrophils # Seg Neutrophils # Man 10.5 H Lymphocytes # (Manual) Monocytes # (Manual) 1.0 H PT INR APTT Fibrinogen D-Dimer ABG pH POC ABG pCO2 POC ABG pO2 ABG pO2 ABG HCO3 ABG O2 Saturation ABG Base Excess ABG Hemoglobin ABG Oxyhemoglobin Oxyhemoglobin Sodium Potassium 3.0 L Chloride Carbon Dioxide BUN 20 H Creatinine Glucose 104 H POC Glucose 119 H Lactic Acid Calcium 8.3 L Phosphorus Magnesium AST ALT Alkaline Phosphatase C-Reactive Protein Total Protein Albumin Triglycerides Ur Specific [place] Urine Creatinine Crossmatch 06/30/21 06/30/21 06/30/21 11:36 16:24 22:44 WBC RBC Hgb Hct MCV MCH RDW Plt Count Lymph % (Auto) Clark % (Auto) Lymph # (Auto) Clark # (Auto) Seg Neutrophils % Seg Neuts % (Manual) Lymphocytes % (Manual) Monocytes % (Manual) Seg Neutrophils # Seg Neutrophils # Man Lymphocytes # (Manual) Monocytes # (Manual) PT INR APTT Fibrinogen D-Dimer ABG pH POC ABG pCO2 POC ABG pO2 ABG pO2 ABG HCO3 ABG O2 Saturation ABG Base Excess ABG Hemoglobin ABG Oxyhemoglobin Oxyhemoglobin Sodium Potassium Chloride Carbon Dioxide BUN Creatinine Glucose POC Glucose 154 H 208 H 174 H Lactic Acid Calcium Phosphorus Magnesium AST ALT Alkaline Phosphatase C-Reactive Protein Total Protein Albumin Triglycerides Ur Specific [place] Urine Creatinine Crossmatch 07/01/21 07/01/21 07/01/21 05:29 05:29 05:54 WBC 11.9 H RBC 3.00 L Hgb 8.1 L Hct 24.4 L MCV MCH 27 L RDW 21.7 H Plt Count Lymph % (Auto) Clark % (Auto) Lymph # (Auto) Clark # (Auto) Seg Neutrophils % Seg Neuts % (Manual) Lymphocytes % (Manual) Monocytes % (Manual) Seg Neutrophils # Seg Neutrophils # Man Lymphocytes # (Manual) Monocytes # (Manual) PT INR APTT Fibrinogen D-Dimer ABG pH POC ABG pCO2 POC ABG pO2 ABG pO2 ABG HCO3 ABG O2 Saturation ABG Base Excess ABG Hemoglobin ABG Oxyhemoglobin Oxyhemoglobin Sodium Potassium Chloride Carbon Dioxide BUN Creatinine Glucose 177 H POC Glucose 170 H Lactic Acid Calcium Phosphorus Magnesium AST ALT Alkaline Phosphatase C-Reactive Protein Total Protein Albumin Triglycerides Ur Specific [place] Urine Creatinine Crossmatch 07/01/21 07/02/21 07/02/21 10:54 05:05 10:18 WBC RBC Hgb Hct MCV MCH RDW Plt Count Lymph % (Auto) Clark % (Auto) Lymph # (Auto) Clark # (Auto) Seg Neutrophils % Seg Neuts % (Manual) Lymphocytes % (Manual) Monocytes % (Manual) Seg Neutrophils # Seg Neutrophils # Man Lymphocytes # (Manual) Monocytes # (Manual) PT INR APTT Fibrinogen D-Dimer ABG pH 7.488 H POC ABG pCO2 POC ABG pO2 ABG pO2 97.2 H ABG HCO3 27.1 H ABG O2 Saturation ABG Base Excess 3.5 H ABG Hemoglobin 7.9 L ABG Oxyhemoglobin Oxyhemoglobin Sodium Potassium Chloride Carbon Dioxide BUN Creatinine Glucose POC Glucose 184 H 182 H Lactic Acid Calcium Phosphorus Magnesium AST ALT Alkaline Phosphatase C-Reactive Protein Total Protein Albumin Triglycerides Ur Specific [place] Urine Creatinine Crossmatch 07/02/21 07/02/21 07/02/21 12:14 16:18 22:27 WBC RBC Hgb Hct MCV MCH RDW Plt Count Lymph % (Auto) Clark % (Auto) Lymph # (Auto) Clark # (Auto) Seg Neutrophils % Seg Neuts % (Manual) Lymphocytes % (Manual) Monocytes % (Manual) Seg Neutrophils # Seg Neutrophils # Man Lymphocytes # (Manual) Monocytes # (Manual) PT INR APTT Fibrinogen D-Dimer ABG pH 7.199 L* POC ABG pCO2 POC ABG pO2 ABG pO2 104.5 H ABG HCO3 30.3 H ABG O2 Saturation ABG Base Excess ABG Hemoglobin 9.8 L ABG Oxyhemoglobin Oxyhemoglobin 94.6 L Sodium Potassium Chloride Carbon Dioxide BUN Creatinine Glucose POC Glucose 184 H 194 H Lactic Acid Calcium Phosphorus Magnesium AST ALT Alkaline Phosphatase C-Reactive Protein Total Protein Albumin Triglycerides Ur Specific [place] Urine Creatinine Crossmatch 07/03/21 07/03/21 07/03/21 09:47 10:44 11:24 WBC RBC 3.01 L Hgb 8.3 L Hct 24.3 L MCV MCH RDW 21.7 H Plt Count Lymph % (Auto) 8.4 L Clark % (Auto) Lymph # (Auto) 0.8 L Clark # (Auto) Seg Neutrophils % 80.6 H Seg Neuts % (Manual) Lymphocytes % (Manual) Monocytes % (Manual) Seg Neutrophils # Seg Neutrophils # Man Lymphocytes # (Manual) Monocytes # (Manual) PT INR APTT Fibrinogen D-Dimer ABG pH POC ABG pCO2 POC ABG pO2 ABG pO2 ABG HCO3 ABG O2 Saturation ABG Base Excess ABG Hemoglobin ABG Oxyhemoglobin Oxyhemoglobin Sodium Potassium 3.0 L Chloride Carbon Dioxide BUN Creatinine Glucose 200 H POC Glucose 180 H Lactic Acid Calcium 8.3 L Phosphorus Magnesium AST ALT Alkaline Phosphatase C-Reactive Protein Total Protein Albumin Triglycerides Ur Specific [place] Urine Creatinine Crossmatch 07/03/21 07/03/21 07/03/21 16:34 22:14 22:15 WBC RBC Hgb Hct MCV MCH RDW Plt Count Lymph % (Auto) Clark % (Auto) Lymph # (Auto) Clark # (Auto) Seg Neutrophils % Seg Neuts % (Manual) Lymphocytes % (Manual) Monocytes % (Manual) Seg Neutrophils # Seg Neutrophils # Man Lymphocytes # (Manual) Monocytes # (Manual) PT INR APTT Fibrinogen D-Dimer ABG pH POC ABG pCO2 POC ABG pO2 ABG pO2 ABG HCO3 ABG O2 Saturation ABG Base Excess ABG Hemoglobin ABG Oxyhemoglobin Oxyhemoglobin Sodium Potassium Chloride Carbon Dioxide BUN Creatinine Glucose POC Glucose 165 H 174 H 180 H Lactic Acid Calcium Phosphorus Magnesium AST ALT Alkaline Phosphatase C-Reactive Protein Total Protein Albumin Triglycerides Ur Specific [place] Urine Creatinine Crossmatch 07/04/21 07/04/21 07/04/21 00:28 01:44 05:07 WBC RBC Hgb Hct MCV MCH RDW Plt Count Lymph % (Auto) Clark % (Auto) Lymph # (Auto) Clark # (Auto) Seg Neutrophils % Seg Neuts % (Manual) Lymphocytes % (Manual) Monocytes % (Manual) Seg Neutrophils # Seg Neutrophils # Man Lymphocytes # (Manual) Monocytes # (Manual) PT INR APTT Fibrinogen D-Dimer ABG pH POC ABG pCO2 POC ABG pO2 ABG pO2 107.7 H ABG HCO3 26.7 H ABG O2 Saturation ABG Base Excess ABG Hemoglobin 7.5 L ABG Oxyhemoglobin Oxyhemoglobin Sodium Potassium Chloride Carbon Dioxide BUN Creatinine Glucose POC Glucose 246 H 179 H Lactic Acid Calcium Phosphorus Magnesium AST ALT Alkaline Phosphatase C-Reactive Protein Total Protein Albumin Triglycerides Ur Specific [place] Urine Creatinine Crossmatch 07/04/21 07/04/21 07/04/21 05:13 05:13 10:52 WBC RBC 3.12 L Hgb 8.5 L Hct 25.2 L MCV MCH 27 L RDW 21.3 H Plt Count Lymph % (Auto) 6.1 L Clark % (Auto) Lymph # (Auto) 0.6 L Clark # (Auto) Seg Neutrophils % 85.0 H Seg Neuts % (Manual) Lymphocytes % (Manual) Monocytes % (Manual) Seg Neutrophils # 8.0 H Seg Neutrophils # Man Lymphocytes # (Manual) Monocytes # (Manual) PT INR APTT Fibrinogen D-Dimer ABG pH POC ABG pCO2 POC ABG pO2 ABG pO2 ABG HCO3 ABG O2 Saturation ABG Base Excess ABG Hemoglobin ABG Oxyhemoglobin Oxyhemoglobin Sodium Potassium 3.4 L Chloride Carbon Dioxide BUN Creatinine Glucose 205 H POC Glucose 146 H Lactic Acid Calcium Phosphorus Magnesium AST ALT Alkaline Phosphatase C-Reactive Protein Total Protein Albumin Triglycerides Ur Specific [place] Urine Creatinine Crossmatch 07/04/21 07/04/21 07/05/21 16:22 23:52 04:38 WBC RBC Hgb Hct MCV MCH RDW Plt Count Lymph % (Auto) Clark % (Auto) Lymph # (Auto) Clark # (Auto) Seg Neutrophils % Seg Neuts % (Manual) Lymphocytes % (Manual) Monocytes % (Manual) Seg Neutrophils # Seg Neutrophils # Man Lymphocytes # (Manual) Monocytes # (Manual) PT INR APTT Fibrinogen D-Dimer ABG pH POC ABG pCO2 POC ABG pO2 ABG pO2 ABG HCO3 ABG O2 Saturation ABG Base Excess ABG Hemoglobin ABG Oxyhemoglobin Oxyhemoglobin Sodium Potassium 3.0 L Chloride Carbon Dioxide BUN 18 H Creatinine Glucose 174 H POC Glucose 154 H 193 H Lactic Acid Calcium Phosphorus 2.20 L Magnesium AST ALT Alkaline Phosphatase C-Reactive Protein Total Protein Albumin Triglycerides Ur Specific [place] Urine Creatinine Crossmatch 07/05/21 07/05/21 07/05/21 04:38 05:15 12:35 WBC RBC 2.95 L Hgb 7.8 L Hct 23.9 L MCV MCH 27 L RDW 21.0 H Plt Count Lymph % (Auto) Clark % (Auto) Lymph # (Auto) Clark # (Auto) Seg Neutrophils % Seg Neuts % (Manual) Lymphocytes % (Manual) Monocytes % (Manual) Seg Neutrophils # Seg Neutrophils # Man Lymphocytes # (Manual) Monocytes # (Manual) PT INR APTT Fibrinogen D-Dimer ABG pH POC ABG pCO2 POC ABG pO2 ABG pO2 ABG HCO3 ABG O2 Saturation ABG Base Excess ABG Hemoglobin ABG Oxyhemoglobin Oxyhemoglobin Sodium Potassium Chloride Carbon Dioxide BUN Creatinine Glucose POC Glucose 163 H 121 H Lactic Acid Calcium Phosphorus Magnesium AST ALT Alkaline Phosphatase C-Reactive Protein Total Protein Albumin Triglycerides Ur Specific [place] Urine Creatinine Crossmatch 07/05/21 07/05/21 07/05/21 18:27 21:05 23:11 WBC RBC Hgb Hct MCV MCH RDW Plt Count Lymph % (Auto) [place] % (Auto) Lymph # (Auto) Clark # (Auto) Seg Neutrophils % Seg Neuts % (Manual) Lymphocytes % (Manual) Monocytes % (Manual) Seg Neutrophils # Seg Neutrophils # Man Lymphocytes # (Manual) Monocytes # (Manual) PT INR APTT Fibrinogen D-Dimer ABG pH POC ABG pCO2 POC ABG pO2 ABG pO2 ABG HCO3 ABG O2 Saturation ABG Base Excess ABG Hemoglobin ABG Oxyhemoglobin Oxyhemoglobin Sodium Potassium Chloride Carbon Dioxide BUN Creatinine Glucose POC Glucose 183 H 170 H 184 H Lactic Acid Calcium Phosphorus Magnesium AST ALT Alkaline Phosphatase C-Reactive Protein Total Protein Albumin Triglycerides Ur Specific [place] Urine Creatinine Crossmatch 07/06/21 07/06/21 07/06/21 04:39 05:13 12:12 WBC RBC Hgb Hct MCV MCH RDW Plt Count Lymph % (Auto) [place] % (Auto) Lymph # (Auto) Clark # (Auto) Seg Neutrophils % Seg Neuts % (Manual) Lymphocytes % (Manual) Monocytes % (Manual) Seg Neutrophils # Seg Neutrophils # Man Lymphocytes # (Manual) Monocytes # (Manual) PT INR APTT Fibrinogen D-Dimer ABG pH POC ABG pCO2 POC ABG pO2 ABG pO2 ABG HCO3 ABG O2 Saturation ABG Base Excess ABG Hemoglobin ABG Oxyhemoglobin Oxyhemoglobin Sodium Potassium 3.4 L Chloride Carbon Dioxide BUN Creatinine Glucose 180 H POC Glucose 183 H 153 H Lactic Acid Calcium Phosphorus Magnesium AST ALT Alkaline Phosphatase C-Reactive Protein Total Protein Albumin Triglycerides Ur Specific [place] Urine Creatinine Crossmatch 07/06/21 07/06/21 07/07/21 17:30 21:44 00:22 WBC RBC Hgb Hct MCV MCH RDW Plt Count Lymph % (Auto) [place] % (Auto) Lymph # (Auto) Clark # (Auto) Seg Neutrophils % Seg Neuts % (Manual) Lymphocytes % (Manual) Monocytes % (Manual) Seg Neutrophils # Seg Neutrophils # Man Lymphocytes # (Manual) Monocytes # (Manual) PT INR APTT Fibrinogen D-Dimer ABG pH POC ABG pCO2 POC ABG pO2 ABG pO2 ABG HCO3 ABG O2 Saturation ABG Base Excess ABG Hemoglobin ABG Oxyhemoglobin Oxyhemoglobin Sodium Potassium Chloride Carbon Dioxide BUN Creatinine Glucose POC Glucose 166 H 155 H 188 H Lactic Acid Calcium Phosphorus Magnesium AST ALT Alkaline Phosphatase C-Reactive Protein Total Protein Albumin Triglycerides Ur Specific [place] Urine Creatinine Crossmatch 07/07/21 07/07/21 07/07/21 04:10 05:48 07:39 WBC RBC Hgb Hct MCV MCH RDW Plt Count Lymph % (Auto) [place] % (Auto) Lymph # (Auto) Clark # (Auto) Seg Neutrophils % Seg Neuts % (Manual) Lymphocytes % (Manual) Monocytes % (Manual) Seg Neutrophils # Seg Neutrophils # Man Lymphocytes # (Manual) Monocytes # (Manual) PT INR APTT Fibrinogen D-Dimer ABG pH POC ABG pCO2 POC ABG pO2 ABG pO2 ABG HCO3 ABG O2 Saturation ABG Base Excess ABG Hemoglobin ABG Oxyhemoglobin Oxyhemoglobin Sodium Potassium 3.1 L Chloride Carbon Dioxide BUN Creatinine Glucose 138 H POC Glucose 141 H 147 H Lactic Acid Calcium Phosphorus 2.40 L Magnesium AST ALT Alkaline Phosphatase C-Reactive Protein Total Protein Albumin Triglycerides Ur Specific [place] Urine Creatinine Crossmatch 07/07/21 07/07/21 07/07/21 11:17 16:06 23:58 WBC RBC Hgb Hct MCV MCH RDW Plt Count Lymph % (Auto) Clark % (Auto) Lymph # (Auto) Clark # (Auto) Seg Neutrophils % Seg Neuts % (Manual) Lymphocytes % (Manual) Monocytes % (Manual) Seg Neutrophils # Seg Neutrophils # Man Lymphocytes # (Manual) Monocytes # (Manual) PT INR APTT Fibrinogen D-Dimer ABG pH POC ABG pCO2 POC ABG pO2 ABG pO2 ABG HCO3 ABG O2 Saturation ABG Base Excess ABG Hemoglobin ABG Oxyhemoglobin Oxyhemoglobin Sodium Potassium Chloride Carbon Dioxide BUN Creatinine Glucose POC Glucose 161 H 173 H 198 H Lactic Acid Calcium Phosphorus Magnesium AST ALT Alkaline Phosphatase C-Reactive Protein Total Protein Albumin Triglycerides Ur Specific [place] Urine Creatinine Crossmatch 07/08/21 07/08/21 07/08/21 04:20 04:20 06:12 WBC RBC 3.16 L Hgb 8.3 L Hct 25.1 L MCV MCH 26 L RDW 21.0 H Plt Count Lymph % (Auto) Clark % (Auto) Lymph # (Auto) [place] # (Auto) Seg Neutrophils % Seg Neuts % (Manual) Lymphocytes % (Manual) Monocytes % (Manual) Seg Neutrophils # Seg Neutrophils # Man Lymphocytes # (Manual) Monocytes # (Manual) PT INR APTT Fibrinogen D-Dimer ABG pH POC ABG pCO2 POC ABG pO2 ABG pO2 ABG HCO3 ABG O2 Saturation ABG Base Excess ABG Hemoglobin ABG Oxyhemoglobin Oxyhemoglobin Sodium Potassium Chloride Carbon Dioxide BUN Creatinine Glucose 183 H POC Glucose 189 H Lactic Acid Calcium Phosphorus Magnesium AST ALT Alkaline Phosphatase C-Reactive Protein Total Protein Albumin Triglycerides Ur Specific [place] Urine Creatinine Crossmatch 07/08/21 11:33 WBC RBC Hgb Hct MCV MCH RDW Plt Count Lymph % (Auto) [place] % (Auto) Lymph # (Auto) Clark # (Auto) Seg Neutrophils % Seg Neuts % (Manual) Lymphocytes % (Manual) Monocytes % (Manual) Seg Neutrophils # Seg Neutrophils # Man Lymphocytes # (Manual) Monocytes # (Manual) PT INR APTT Fibrinogen D-Dimer ABG pH POC ABG pCO2 POC ABG pO2 ABG pO2 ABG HCO3 ABG O2 Saturation ABG Base Excess ABG Hemoglobin ABG Oxyhemoglobin Oxyhemoglobin Sodium Potassium Chloride Carbon Dioxide BUN Creatinine Glucose POC Glucose 161 H Lactic Acid Calcium Phosphorus Magnesium AST ALT Alkaline Phosphatase C-Reactive Protein Total Protein Albumin Triglycerides Ur Specific [place] Urine Creatinine Crossmatch
[2021-07-08] MEDS ORDERED: WATER FOR INJ Sterile (PF) 10 ML ONE (12:28)
--- NOTE | 2021-07-08 12:43 | Vascular Lab Report ---
DUPLEX DOPPLER LOWER EXTREMITY VEINS, BILATERAL INDICATION / CLINICAL INFORMATION: BLE pain and swelling. TECHNIQUE: Duplex doppler imaging was performed through the veins of both lower extremities using barber ous compression and other maneuvers. COMPARISON: None available. FINDINGS: RIGHT COMMON FEMORAL VEIN: Negative. RIGHT FEMORAL VEIN: Negative. RIGHT POPLITEAL VEIN: Negative. RIGHT CALF VEINS: Negative. LEFT COMMON FEMORAL VEIN: Negative. LEFT FEMORAL VEIN: Negative. LEFT POPLITEAL VEIN: Negative. LEFT CALF VEINS: Negative. ADDITIONAL FINDINGS: None. IMPRESSION: 1. No sonographic evidence for DVT in either lower extremity. Signer Name: Nicola Yi MD Signed: 07/08/2021 12:39 PM Workstation Name: [id number]
[2021-07-08] MEDS ORDERED: ALTEPLASE 2 MG INJ IV ONE (13:00)
--- NOTE | 2021-07-08 13:55 | Progress Note ---
Assessment and Plan Cultures: 06/12/2021 blood cultures: no growth A/P: 76-year-old female with diabetes, hypertension, gout was admitted to the hospital on 06/11/2021 with swelling of the submandibular region, tongue and difficulty breathing, labs also revealed severe coagulopathy due to Coumadin. 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 Shock resolved. s/p tracheostomy and PEG tube placement 06/19/2021. #Acute respiratory failure: s/p trach #Right-sided pneumothorax: s/p chest tube. #Diabetes mellitus, uncontrolled #Coagulopathy: Secondary to Coumadin. #Acute blood loss anemia Recs: -Completed Zosyn -Pending placement Sinai Small MD [facility], [place], [facility] ([facility]) O: [phone] F: [phone] Subjective Date of service: 07/08/21 Interval history: Afebrile, normal white count. Objective - Exam Narrative Exam: Physical Exam: Constitutional: Awake, on T-piece Head, Ears, Nose: Normocephalic, atraumatic. External ears, nose normal Eyes: Conjunctivae/corneas clear. No icterus. No ptosis. Oral: trach Cardiovascular: S1, S2 + Respiratory: AE reduced, right-sided chest tube. GI: Soft, bowel sounds +, PEG + Musculoskeletal: No pedal edema, no cyanosis. Skin: No rash or abscess Hem/Lymphatic: No palpable cervical or supraclavicular nodes. No lymphangitis Psych: no agitation Neurological: on t-piece examined. - Constitutional Vitals: Vital Signs Temp Pulse Resp BP Pulse Ox 98.9 F 88 21 152/86 99 07/08/21 12:00 07/08/21 13:00 07/08/21 13:00 07/08/21 13:00 07/08/21 13:00 Temperature -Last 24 Hours Temperature 98.9 F Temperature 99.5 F Temperature 97.6 F Temperature 99.4 F Temperature 99.3 F - Labs CBC & Chem 7: 07/08/21 04:20 07/08/21 04:20 Labs: Abnormal lab results 07/07/21 07/07/2107/08/22 Range/Units 16:06 23:58 04:20 RBC 3.16 L (3.65-5.03) M/mm3 Hgb 8.3 L (10.1-14.3) gm/dl Hct 25.1 L (30.3-42.9) % MCH 26 L (28-32) pg RDW 21.0 H (13.2-15.2) % Glucose (65-100) mg/dL POC Glucose 173 H 198 H (70-105) mg/dL 07/08/21 07/08/21 07/08/21 Range/Units 04:20 06:12 11:33 RBC (3.65-5.03) M/mm3 Hgb (10.1-14.3) gm/dl Hct (30.3-42.9) % MCH (28-32) pg RDW (13.2-15.2) % Glucose 183 H (65-100) mg/dL POC Glucose 189 H 161 H (70-105) mg/dL
[2021-07-08] MEDS ORDERED: LIDOCAINE MPF (2%) 20 MG/1 ML VIAL 5 ML ONE (14:38)
[2021-07-08] MEDS ORDERED: propofoL 200 MG/20 ML VIAL IV ONE (14:38)
[2021-07-08] MEDS ORDERED: LACTATED RINGERS 1,000 ML ONE (14:39)
[2021-07-08] MEDS ORDERED: MIDAZOLAM 5 MG/5 ML INJ MDV IV ONE (14:39)
--- NOTE | 2021-07-08 15:22 | Operative Report ---
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 Patricia Anesthesia: IV sedation and monitored anesthesia care Specimen: None Findings: This is a 76-year-old -[place] lady who 3 weeks ago underwent a tracheostomy to manage a supraglottic obstruction secondary to Ludewig's angina. The patient had a #10 Shiley that was fenestrated placed at the time. She has had a slow but progressive recovery since then. Respiratory and physical therapy are asking for downsizing of the Shiley from a #10 to a #8 in order to improve rehab and the resumption of speech. The patient is taken to the OR and under light IV sedation and monitored anesthesia care timeouts are completed and consent is on the chart. A #10 Shiley is assessed on the balloon is ensured to be down. The guidewire is taken from the percutaneous Rhino tracheostomy tray. It is passed through the #10 Shiley to the level of the devin. The #10 Shiley is removed leaving the guidewire in place. The number 8 Shiley is then advanced on the medium dilator until the Shiley is in place. The dilator and guidewire are removed. The glide scope was then used to visualize the devin confirming good position of the new Shiley. Patient tolerates the procedure well. She was returned to the ICU in stable condition.
--- NOTE | 2021-07-08 16:02 | Anesthesia Day of Surgery ---
Anesthesia Day of Surgery - Day of Surgery Patient Examined: Yes Patient H&P Reviewed: Yes Patient is NPO: Yes
--- NOTE | 2021-07-08 16:06 | Post Anesthesia Evaluation ---
- Post Anesthesia Evaluation Patient Participated: Yes (nodded appropriately) Airway Patent: Yes Stable Respiratory Function: Yes Nausea/Vomiting: No (none apparent) Temp > 96.8F: Yes Pain Manageable: Yes Adequeate Hydration: Yes Anesthesia Complications: No Patient on Ventilator: No Other Comments: Transported to ICU with monitors and O2 via trach collar.
--- NOTE | 2021-07-08 16:10 | Progress Note ---
<JORGEKIT JosseCandelaria - Last Filed: 07/08/21 16:36> Assessment and Plan Assessment and plan: This is a 76-year-old female with HTN, Coumadin use, dental caries, PVD s/p stenting to right leg, DM, arthritis, depression, gout and ? Pulmonary hypertension admitted with Jeremiah's angina s/p emergent cric with bleeding, right sided pneumothorax, supratherapeutic INR, hypernatremia, hyperchloremia, severe metabolic acidosis, hyperglycemia and hypocalcemia Neuro: Acute pain, r/o myasthenia gravis, h/o depression, arthritis -prn fent pushes -Avoid delirium -Reorientation as needed -Maintain sleep-wake cycle -PT consulted; recommends LTAC -Neurology consulted, appreciate recommendations -B12, A1c, CK, TSH pending -MRI brain to rule out bleeding and old watershed infarct -gabapentin Cardiac: S/p cardiac arrest, h/o htn, PVD s/p stenting Right leg -06/14 cardiac arrest with ROSC -S/p vasopressor support with Levophed and Fabian-Synephrine -Blood pressure monitoring per protocol -Antihypertensive regimen: Hydralazine 100 mg every 8 -06/13 Echocardiogram EF 65-70% Respiratory: Acute hypoxic respiratory failure, right pneumothorax -CCM consulted, appreciate recommendations -S/p emergent cricothyroidectomy with surgery with 8.00 ETT -s/p trach 06/19 with surgery s/p #10 Shiley -07/08 Shiley downsized to #8 -T-piece trials started 06/26 -ST: Unable to tolerate Passy-Weldon valve on 06/28 but has since tolerated 10 min -misplaced PSMV during transport and awaiting replacement -s/p Right chest tube removed 06/29 -06/13 bronchoscopy showed possible blood clot in left lung which may be acting as mucous plug however it was left in place due to possible bleeding inside lung if removed. -CXR post cardiac arrest shows clearance of mucous plug -06/16 CT chest shows moderate right pneumothorax with collapse of right upper lobe, right thoracostomy tube terminates at the collapsed right upper lobe, bilateral bronchus opacities compatible with infectious/inflammatory etiology, bilateral small pleural effusion, extensive subcutaneous air, small fluid collection in the anterior mediastinum is nonspecific -VAP bundle -SPO2 monitoring GI: Protein calorie malnutrition -24 hours -1545 mL -PPI -BR: senna, colace -s/p TPN -Nutrition consult for tube feeding -S/p PEG : Urinary retention, acute kidney injury possibly secondary to vasomotor nephropathy (resolved) -Strict intake and output -Renally dose medications -Avoid nephrotoxic medications -Daily weights -Consider nephrology consult if worsens -S/p 7 L LR bolus -Replete potassium -Lujan catheter replaced due to urinary retention ID: 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 dental caries -CT neck with contrast showed a significant right floor of mild swelling with extension into the submandibular and submental spaces, significant thickening and inflammation involving the right pharyngeal wall, with the parapharyngeal and retropharyngeal spaces at the level of the thyroid cartilage, epiglottis significantly swollen and so are the aryepiglottic folds resulting in signifi cant airway narrowing at this level, no lymphadenopathy, symmetric submandibular and parathyroid glands, S few scattered caries but no periapical lucencies, nonspecific calcification along the right lateral oropharynx, no definite stone seen within the territory of the submandibular gland ducts, no suspicious rashes lesion -Infectious disease and general surgery consulted, appreciate recommendations -s/p cricothyroidectomy -Will follow surgery to direction and treatment of injury -Per surgery may have mucosal injury -Intra-Op findings include post pharyngeal swelling and bruising -s/p Solu-Medrol -Per ID: if leucocytosis persists after being off steroids, obtain CT neck with IV contrast to rule out any abscess -Antibiotic therapy Zosyn -COVID-19 PCR negative -f/u blood culture -Monitor WBC and temperature curve -s/p 5L normal saline bolus in ED, 7 L LR bolus in ICU Heme: Coagulopathy (resolved), supratherapeutic INR (resolved), acute blood loss anemia (resolved), possible component of hemorrhagic shock (resolved), leukocytosis (resolved) -Patient is on Coumadin at home -S/p 5 FFP, 8 PRBC, vitamin K x3 -Trend CBC -Presented with H/H of 10.3/34.6 and decreased to 6.7/22.4 -INR 8.18-> 4.55-> 2.1-> 1.23-> 1.16-> 1.31 -Transfuse hemoglobin less than 7 -Lovenox subq (prophylactic) -Monitor for signs of bleeding -SCDs to BLE while in bed Endo: h/o DM, gout -S/p Lantus 25 units x 1 -Lantus subcu, titrate as needed -Avoid hypoglycemia -SSI -Accu-Cheks q. 6hr The high probability of a clinically significant, sudden or life threatening deterioration of the [multi] system(s) required my full and direct attention, intervention and personal management. The aggregate critical care time was [60] minutes. This time is in addition to time spent performing reported procedures but includes the following: [x] Data Review and interpretation [x] Patient assessment and monitoring of vital signs [x] Documentation [x] Medication orders and management Disposition Plan: ICU Total Time Spent with Patient (Minutes): 60 History Interval history: This is a 76-year-old female with HTN, Coumadin use , dental caries, PVD s/p stenting right leg, DM, arthritis, depression, gout, and ? Pulmonary hy pertension who presented to emergency department on 06/11 with complaints of pain to mandible area and throat and swelling. Work-up in the emergency department included CT scan of the head and neck which showed findings consistent with Jeremiah's angina and anesthesia was called for intubation. Anesthesia intubation attempts were unsuccessful and surgery was consulted for cricothyroidotomy which was unsuccessful in the emergency department and patient was taken to the OR for tracheostomy. Intubation procedure was complicated by development of pneumothorax and excessive bleeding. Patient given multiple FFP's and vitamin K several times who attempts to decrease INR. Lab work showed leukocytosis, s upratherapeutic INR, hypernatremia, hyperchloremia, severe metabolic acidosis, hyperglycemia, hypocalcemia. Patient was admitted to the hospitalist service with consults to [facility], general surgery, infectious disease. Hospital course to date: 06/12: Patient received additional 2 units FFP and 1 unit PRBC and vitamin K today. Overnight critical care placed a femoral CVL. Patient sedated on fentanyl, propofol and Versed. Currently on Fabian-Synephrine and Levophed for blood pressure maintenance. Remains amatory support. Infectious disease consulted. Started on sliding scale insulin and recultured. COVID-19 PCR pending. Surgery at bedside to place chest tube. 06/13: Patient was taken back to the OR today for exchange cricothyroid to possible tracheostomy. Patient returned with ETT. Chest tube was changed to larger size in the OR. Patient was hypotensive, tachycardic, hypoxic in the OR and received hespan, albumin and an A-line. Upon arrival patient was increased to max dose Levophed for hypotension which has resolved. Titrating vasopressors as tolerated. Remains on sedation with 3 agents. Apparently patient was not ventilating her left lung Intra-Op. Noted to have subcu hematoma and trauma to postpharyngeal area. Questionable decrease cardiac wall motion noted in OR-> will order echocardiogram to further investigate. Patient received additional PRBC today. DIC panel resulted as normal. Patient BUN/creatinine did increase as well as noted to have lactic acidosis. May need IV bolus in addition to pressor use. Likely bronc with Pulmicort today as repeat CXR showed right possible pneumo hydrothorax 06/14: Antibiotics changed to Zosyn per ID, surgical packing removed from neck and makeshift Faith drain placed by surgery and old chronic thyroidectomy site. CXR was completed and RN heard gurgling and blood was noted on dressing. ST elevation noted on bedside monitor and patient was hypoxic. FiO2 increased to 100%. However shortly after patient lost her pulse and ACLS was initiated. Patient received 3 rounds of epinephrine and ROSC was achieved. Stat portable CXR showed resolution of lower lobe collapse on the left and stable right-sided chest tube with hemothorax. CCM updated family. Patient H/H noted to be 7.2/23.2 and did RN to transfuse prepared PRBC which [facility] blood bank. Bedside echo completed. 06/15: Off sedation, intermittently follows commands, remains on the prednisone. Surgery will reassess airway on Thursday to see if any further support is required. Urine studies indicate prerenal, given IV bolus and started on Clinimix today. 06/16: Patient restarted on fentanyl drip due to hypertension. Given more LR due to CR improvement post LR yesterday. Patient started on Lantus subcu after given one-time dose of Lantus. PICC placed today. Patient had a CT chest today which showed no mediasinusitis but extensive subcutaneous air. 06/17: General Surgery recommended transferring patient to a ENT specialized facility. Placed a call to [facility], spoke with the citizenship teacher, Dr. Duckworth, who stated that a transfer is possible as long their ENT team accept the patient. Awaiting on a final response. Continue current supportive measures. Basal insulin adjusted for hyperglycemia. 06/18: JEREMIAS overnight. Hypertensive this am, PRN Hydralazine for SBP greater than 160. Remains hyperglycemic, patient is on IV steroids and TPN, basal insulin adjusted. Plan for possible transfer to [facility] once an ICU bed is available. 06/19: Low SPO2 and hypotension overnight required Levophed for a short time. Overnight CXR noted with no significant changed. Patient is stable this am and off pressors. Plan for possible Trach and PEG today by General Surgery. 06/20: s/p Trach and PEG. Some bleeding overnight s/p X1 dose of Vitamin K. The bleeding resolved this am, H&H remains stable. Attempted a SAT this am, patient went into SVT, HR in the 160-170 which resolved once sedations were resumed. Plan is to continue to sedation for now, attempt to wean off propofol for a RASS goal of 0 to -2. D/C CCM plan is to wean off sedation as tolerated for PST for possible extubation. Okay to use PEGT per Gen. Surgery. Nutrition consulted for TF management, TF to start tonight once current TPN bag is completed. BG remains elevated, continue current SSI and basal for now, will start tapering IV steroids tomorrow. FWF added for hyponatremia. Wean off pressors as tolerated for MAP above 65. Possible transfer to [place] for ENT eval. 06/21: Overnight events and CXR noted. Worsen subcutaneous emphysema and Rt. Pneumo. CT remains in place and intact to cont. wall suction. Patient remains hemodynamically stable, still on low vent setting. will continue to monitor for now. Patient is also tolerating enteral nutrition via PEGT, TPN D/benjamín. H&H is also trending down, no s/s of any active bleeding. Will continue to trend H&H, transfuse if hgb is less than 7. FWF increased for hypernatremia. Still waiting on possible transfer to [facility]. 06/22: JEREMIAS overnight. Subcutaneous emphysema is unchanged. CXR with mild improvement. Patient remains hemodynamically stable. Hydralazine added Q8hr for HTN. FWF increased for hypernatremia. Awaiting transfer to [facility] for ENT eval. 06/23: Over 70cc from CT overnight, subcutaneous emphysema with mild improvement. Patient is also tolerating PST this am. Repeat CXR in the am. Patient is still hypertensive, will added norvasc for better control. Continue FWF for hypernatremia and electrolytes replacement as needed, repeat labs in the am. Darin in wbcs this am, patient remains afebrile and on IV Abx, most likely due to IV steroids continue to monitor. Continue to taper IV steroids. Hyperglycemia is also improving, continue current SSI and basal for now. 06/24: Patient is anemic today and transfused 1 unit PRBC, hypokalemia and hypophosphatemia repleted, will continue every 6 H/H for now to monitor for bleeding, steroid taper continues, still awaiting transfer to [facility], PT/OT consulted, [facility] to talk to case management regarding LTAC transfer. 06/25: Patient responded appropriately to yesterday, placed on pressure support trial today. Per CCM hopefully T-piece in the next 24 to 48 hours and will continue decrease steroids further on . Lujan catheter removed today. 06/26: Patient started T-piece trials, H/H remained stable. Surgery plans to remove chest tube once weaned off ventilator. Increasing her water flush given hypernatremia. 06/27: Chest tube placed to waterseal, T-piece trial trials ongoing. Remains on Zosyn and steroids being tapered. Increasing free water flush, insulin and added 3 times daily insulin. 06/28: Hypernatremia persists, started on D5W for 1 L, replace potassium. Chest tube remains to waterseal. 06/29: Chest tube removed by surgery today, hyponatremia better and dextrose discontinued, hypokalemia noted which was repleted. Speech did see but patient had decreased voice quality and increased wob so aborted 06/30: Hypokalemia noted on labs will be repleted, leukocytosis continues to improve. Continues on T-piece trials and is following commands. 07/01: Transfer from ICU on 06/30. Patient was stable with a trach and T-piece on 5 L. Tolerating tube feeds. 07/02: Patient remains on T-piece with trach in place. On 5 L of O2. She is alert and responds appropriately but not well due to trach tube. Tolerating tube feeds. Appears comfortable. No complaints. No new events reported. Case management reports patient with plans for LTAC placement. 07/03: Patient remains on T-piece with trach in place. On 5 L of O2. Patient tolerating tube feeds. We will check CT of head, neck and chest per pulmonary and general surgery recommendations based on CBC this morning. If leukocytosis persists we will proceed with studies. Patient remains afebrile today. 07/04: s/p X1 dose of IV lasix, patient is now stable on the T-piece via trach at 28% and 5L. Patient remains afebrile, leukocytosis improved, and CXR wiht no significant change. PRN [place] added for pain management. Electrolytes repleted 07/05: Remains stable on T-piece. Complaint of lack of sleep and tiredness this am, Trazadone and melatonin added for sleep. Continue PT- increase mobility and possibly OOB to chair today. Continue pain management. Electrolytes repleted. 07/06: Rested overnight. And continue to tolerate T-piece at 28% and 5L. Continue trazadone and melatonin at night for sleep and pain control with PRN analgesia. Discussed possibility of down sizing the trach to an 8 Shiley with General Surgery. Per Surgery downsizing would not be easy nor safe at this time. Plan to order #10 PSMV instead. Case management to arrange possible placement SNF vs subacute rehab. 07/07: JEREMIAS overnight. New report of BLE pain and swelling, per patient was on gabapentin and smooth muscle relaxers at home. BLE did appear swollen with palpable pedal pulses. Will get BLE doppler, resume gabapentin, and continue PRN analgesic for pain control. Continue mobility/strenght and conditioning with PT. Electrolytes repleted, repeat labs in the am. 07/08: Patient scheduled to have a downsize of Shiley today in the OR with surgery, surgery also requested neurology consult for MS work-up. Lidocaine patches to bilateral lower extremities discontinued Hospitalist Physical - Constitutional Vitals: Temp Pulse Resp BP Pulse Ox 98.9 F 88 21 152/86 99 07/08/21 12:00 07/08/21 13:00 07/08/21 13:00 07/08/21 13:00 07/08/21 13:00 General appearance: Present: no acute distress, obese (Morbidly obese), other (On T-piece with trach in place.) HEART Score - HEART Score Troponin: Troponin T < 0.010 ng/mL (0.00-0.029) 06/11/21 23:21 Results - Labs CBC & Chem 7: 07/08/21 04:20 07/08/21 04:20 Labs: Laboratory Last Values WBC 6.0 K/mm3 (4.5-11.0) 07/08/21 04:20 RBC 3.16 M/mm3 (3.65-5.03) L 07/08/21 04:20 Hgb 8.3 gm/dl (10.1-14.3) L 07/08/21 04:20 Hct 25.1 % (30.3-42.9) L 07/08/21 04:20 MCV 80 fl (79-97) 07/08/21 04:20 MCH 26 pg (28-32) L 07/08/21 04:20 MCHC 33 % (30-34) 07/08/21 04:20 RDW 21.0 % (13.2-15.2) H 07/08/21 04:20 Plt Count 284 K/mm3 (140-440) 07/08/21 04:20 Lymph % (Auto) 6.1 % (13.4-35.0) L 07/04/21 05:13 [place] % (Auto) 6.6 % (0.0-7.3) 07/04/21 05:13 Eos % (Auto) 1.8 % (0.0-4.3) 07/04/21 05:13 Baso % (Auto) 0.5 % (0.0-1.8) 07/04/21 05:13 Lymph # (Auto) 0.6 K/mm3 (1.2-5.4) L 07/04/21 05:13 [place] # (Auto) 0.6 K/mm3 (0.0-0.8) 07/04/21 05:13 Eos # (Auto) 0.2 K/mm3 (0.0-0.4) 07/04/21 05:13 Baso # (Auto) 0.0 K/mm3 (0.0-0.1) 07/04/21 05:13 Add Manual Diff Complete 06/30/21 04:25 Total Counted 100 06/30/21 04:25 Seg Neutrophils % 85.0 % (40.0-70.0) H 07/04/21 05:13 Seg Neuts % (Manual) 81.0 % (40.0-70.0) H 06/30/21 04:25 Band Neutrophils % 0 % 06/30/21 04:25 Lymphocytes % (Manual) 10.0 % (13.4-35.0) L 06/30/21 04:25 Reactive Lymphs % (Man) 0 % 06/30/21 04:25 Monocytes % (Manual) 8.0 % (0.0-7.3) H 06/30/21 04:25 Eosinophils % (Manual) 1.0 % (0.0-4.3) 06/30/21 04:25 Basophils % (Manual) 0 % (0.0-1.8) 06/30/21 04:25 Metamyelocytes % 0 % 06/30/21 04:25 Myelocytes % 0 % 06/30/21 04:25 Promyelocytes % 0 % 06/30/21 04:25 Blast Cells % 0 % 06/30/21 04:25 Nucleated RBC % Not Reportable 06/30/21 04:25 Seg Neutrophils # 8.0 K/mm3 (1.8-7.7) H 07/04/21 05:13 Seg Neutrophils # Man 10.5 K/mm3 (1.8-7.7) H 06/30/21 04:25 Band Neutrophils # 0.0 K/mm3 06/30/21 04:25 Lymphocytes # (Manual) 1.3 K/mm3 (1.2-5.4) 06/30/21 04:25 Abs React Lymphs (Man) 0.0 K/mm3 06/30/21 04:25 Monocytes # (Manual) 1.0 K/mm3 (0.0-0.8) H 06/30/21 04:25 Eosinophils # (Manual) 0.1 K/mm3 (0.0-0.4) 06/30/21 04:25 Basophils # (Manual) 0.0 K/mm3 (0.0-0.1) 06/30/21 04:25 Metamyelocytes # 0.0 K/mm3 06/30/21 04:25 Myelocytes # 0.0 K/mm3 06/30/21 04:25 Promyelocytes # 0.0 K/mm3 06/30/21 04:25 Blast Cells # 0.0 K/mm3 06/30/21 04:25 WBC Morphology Not Reportable 06/30/21 04:25 Hypersegmented Neuts Not Reportable 06/30/21 04:25 Hyposegmented Neuts Not Reportable 06/30/21 04:25 Hypogranular Neuts Not Reportable 06/30/21 04:25 Smudge Cells Not Reportable 06/30/21 04:25 Toxic Granulation Not Reportable 06/30/21 04:25 Toxic Vacuolation Not Reportable 06/30/21 04:25 Dohle Bodies Not Reportable 06/30/21 04:25 Pelger-Huet Anomaly Not Reportable 06/30/21 04:25 Dennis Rods Not Reportable 06/30/21 04:25 Platelet Estimate Consistent w auto 06/30/21 04:25 Clumped Platelets Not Reportable 06/30/21 04:25 Plt Clumps, EDTA Not Reportable 06/30/21 04:25 Large Platelets Few 06/30/21 04:25 Giant Platelets Not Reportable 06/30/21 04:25 Platelet Satelliting Not Reportable 06/30/21 04:25 Plt Morphology Comment Not Reportable 06/30/21 04:25 RBC Morphology Not Reportable 06/30/21 04:25 Dimorphic RBCs Not Reportable 06/30/21 04:25 Polychromasia Rare 06/30/21 04:25 Hypochromasia 1+ 06/30/21 04:25 Poikilocytosis Not Reportable 06/30/21 04:25 Anisocytosis 1+ 06/30/21 04:25 Microcytosis Not Reportable 06/30/21 04:25 Macrocytosis Not Reportable 06/30/21 04:25 Spherocytes Not Reportable 06/30/21 04:25 Pappenheimer Bodies Not Reportable 06/30/21 04:25 Sickle Cells Not Reportable 06/30/21 04:25 Target Cells Rare 06/30/21 04:25 Tear Drop Cells Few 06/30/21 04:25 Ovalocytes Not Reportable 06/30/21 04:25 Stomatocytes Few 06/12/21 01:45 Helmet Cells Not Reportable 06/30/21 04:25 [place] Bodies Not Reportable 06/30/21 04:25 [place] Rings Not Reportable 06/30/21 04:25 [place] Cells Not Reportable 06/30/21 04:25 Bite Cells Not Reportable 06/30/21 04:25 Crenated Cell Not Reportable 06/30/21 04:25 Elliptocytes Not Reportable 06/30/21 04:25 Acanthocytes (Spur) Not Reportable 06/30/21 04:25 Rouleaux Not Reportable 06/30/21 04:25 Hemoglobin C Crystals Not Reportable 06/30/21 04:25 Schistocytes Not Reportable 06/30/21 04:25 Malaria parasites Not Reportable 06/30/21 04:25 Edin Bodies Not Reportable 06/30/21 04:25 Hem Pathologist Commnt No 06/30/21 04:25 PT 18.3 Sec. (12.2-14.9) H 06/20/21 04:33 INR 1.37 (0.87-1.13) H 06/20/21 04:33 APTT 26.4 Sec. (24.2-36.6) 06/13/21 Unknown Fibrinogen 546 mg/dl (211-480) H 06/13/21 Unknown D-Dimer 1244.63 ng/mlDDU (0-234) H 06/13/21 Unknown ABG pH 7.448 pH Units (7.350-7.450) 07/04/21 01:44 POC ABG pCO2 25.6 mmHg (32.0-48.0) L 06/13/21 04:31 ABG pCO2 39.5 mm Hg 07/04/21 01:44 POC ABG pO2 138.8 mmHg (83-108) H 06/13/21 04:31 ABG pO2 107.7 mm Hg (80.0-90.0) H 07/04/21 01:44 POC ABG HCO3 21.4 06/13/21 04:31 ABG HCO3 26.7 mmol/L (20.0-26.0) H 07/04/21 01:44 ABG O2 Saturation 98.0 % (95.0-99.0) 07/04/21 01:44 ABG O2 Content 10.3 (0.0-44) 07/04/21 01:44 POC ABG Base Excess -0.7 06/13/21 04:31 ABG Base Excess 2.5 mmol/L (-2.0-3.0) 07/04/21 01:44 ABG Hemoglobin 7.5 gm/dl (12.0-16.0) L 07/04/21 01:44 ABG Oxyhemoglobin 98.1 (94-98) H 06/13/21 04:31 ABG Carboxyhemoglobin 1.6 % (0.0-5.0) 07/04/21 01:44 ABG Methemoglobin 0.6 % (0.0-1.5) 07/04/21 01:44 Oxyhemoglobin 95.9 % (95.0-99.0) 07/04/21 01:44 Carboxyhemoglobin 0.8 (0.5-1.5) 06/13/21 04:31 FiO2 35 % 07/04/21 01:44 FiO2 % 40.0 06/13/21 04:31 Sodium 138 mmol/L (137-145) 07/08/21 04:20 Potassium 3.6 mmol/L (3.6-5.0) 07/08/21 04:20 Chloride 102.3 mmol/L (98-107) 07/08/21 04:20 Carbon Dioxide 22 mmol/L (22-30) 07/08/21 04:20 Anion Gap 17 mmol/L 07/08/21 04:20 BUN 13 mg/dL (7-17) 07/08/21 04:20 Creatinine 0.6 mg/dL (0.6-1.2) 07/08/21 04:20 Estimated GFR > 60 ml/min 07/08/21 04:20 BUN/Creatinine Ratio 22 % 07/08/21 04:20 Glucose 183 mg/dL (65-100) H 07/08/21 04:20 POC Glucose 161 mg/dL (70-105) H 07/08/21 11:33 Lactic Acid 5.30 mmol/L (0.7-2.0) H* 06/13/21 15:45 Calcium 8.4 mg/dL (8.4-10.2) 07/08/21 04:20 Phosphorus 3.70 mg/dL (2.5-4.5) D 07/08/21 04:20 Magnesium 1.90 mg/dL (1.7-2.3) 07/08/21 04:20 Total Bilirubin 0.40 mg/dL (0.1-1.2) 06/15/21 03:56 AST 64 units/L (5-40) H 06/15/21 03:56 ALT 106 units/L (7-56) H 06/15/21 03:56 Alkaline Phosphatase 55 units/L (35-129) 06/15/21 03:56 Troponin T < 0.010 ng/mL (0.00-0.029) 06/11/21 23:21 C-Reactive Protein 3.30 mg/dL (0.00-1.30) H 06/16/21 04:32 Total Protein 5.1 g/dL (6.3-8.2) L 06/15/21 03:56 Albumin 2.9 g/dL (3.9-5) L 06/15/21 03:56 Albumin/Globulin Ratio 1.3 % 06/15/21 03:56 Triglycerides 254 mg/dL (2-149) H 06/21/21 04:42 Urine Color Yellow (Yellow) 06/12/21 17:00 Urine Turbidity Clear (Clear) 06/12/21 17:00 Urine pH 5.0 (5.0-7.0) 06/12/21 17:00 Ur Specific [place] 1.035 (1.003-1.030) H 06/12/21 17:00 Urine Protein 30 mg/dl mg/dL (Negative) 06/12/21 17:00 Urine Glucose (UA) 50 mg/dL (Negative) 06/12/21 17:00 Urine Ketones Tr mg/dL (Negative) 06/12/21 17:00 Urine Blood Neg (Negative) 06/12/21 17:00 Urine Nitrite Neg (Negative) 06/12/21 17:00 Urine Bilirubin Neg (Negative) 06/12/21 17:00 Urine Urobilinogen < 2.0 mg/dL (<2.0) 06/12/21 17:00 Ur Leukocyte Esterase Neg (Negative) 06/12/21 17:00 Urine WBC (Auto) < 1.0 /HPF (0.0-6.0) 06/12/21 17:00 Urine RBC (Auto) < 1.0 /HPF (0.0-6.0) 06/12/21 17:00 Urine Creatinine 81.1 mg/dL (0.1-20.0) H 06/15/21 10:40 Urine Sodium 42 mmol/L 06/15/21 10:40 Coronavirus (PCR) Negative (Negative) 06/12/21 09:50 Blood Type O POSITIVE 06/24/21 06:40 Antibody Screen Negative 06/24/21 06:40 Crossmatch See Detail 06/24/21 06:40 Lujan/IV: Voiding Method Indwelling Catheter Active Medications - Current Medications Current Medications: Generic Name Dose Route Start Last Admin Trade Name Freq PRN Reason Stop Dose Admin Hydrocodone Bitart/Acetaminophen 1 each 07/04/21 10:00 07/07/21 21:33 Hydrocodone/Acetaminophen 5-325 Mg Tab PO 1 each Q6H PRN Administration Pain, Moderate (4-6) Amlodipine Besylate 5 mg 06/23/21 10:00 07/08/21 09:53 Amlodipine 5 Mg Tab PO 5 mg QDAY JOLENE Administration Lipase/Protease/Amylase 1 each 06/19/21 19:20 Lipase 10,500/Protease 25,000/Amylase 43,750 (Units) Dr Melgar FEEDTUBE PRN PRN For Clogged Feeding Tube Atorvastatin Calcium 20 mg 06/22/21 22:00 07/07/21 21:35 Atorvastatin 20 Mg Tab PO 20 mg QHS JOLENE Administration Baclofen 10 mg 07/07/21 11:39 Baclofen 10 Mg Tab PO BID PRN Muscle pain Enoxaparin Sodium 40 mg 06/30/21 22:00 07/07/21 21:34 Enoxaparin 40 Mg/0.4 Ml Inj SUB-Q 40 mg QDAY@2200 JOLENE Administration Protocol Famotidine 20 mg 06/24/21 22:00 07/08/21 09:54 Famotidine 20 Mg Tab FEEDTUBE 20 mg BID JOLENE Administration Gabapentin 100 mg 07/07/21 14:00 07/08/21 13:39 Gabapentin 100 Mg Cap PO Not Given TID JOLENE Hydralazine HCl 100 mg 06/22/21 19:00 07/08/21 13:39 Hydralazine 100 Mg Tab FEEDTUBE Not Given Q8HR [facility] Insulin Glargine 30 units 07/04/21 22:00 07/07/21 23:55 Insulin Glargine 100 Units/Ml SUB-Q 30 units QHS JOLENE Administration Insulin Human Lispro 0 unit 06/12/21 12:00 07/08/21 12:31 Insulin Lispro 100 Unit/Ml SUB-Q 3 unit Q6HR JOLENE Administration Protocol Labetalol HCl 10 mg 06/21/21 18:00 07/08/21 12:31 Labetalol 20 Mg/4 Ml Inj IV 10 mg Q4HR PRN Administration Hypertension Melatonin 5 mg 07/05/21 22:00 07/07/21 21:35 Melatonin 5 Mg Tab PO 5 mg QHS JOLENE Administration Metoclopramide HCl 10 mg 06/11/21 20:42 Metoclopramide 10 Mg/2 Ml Inj IV Q6H PRN Nausea And Vomiting Ondansetron HCl 4 mg 06/11/21 20:42 Ondansetron 4 Mg/2 Ml Inj IV Q3H PRN Nausea And Vomiting Simple Syrup 15 ml 06/19/21 19:20 Simple Syrup 15 Ml FEEDTUBE PRN PRN Hypoglycemia Simple Syrup 30 ml 06/19/21 19:20 Simple Syrup 15 Ml FEEDTUBE PRN PRN Hypoglycemia Sodium Bicarbonate 325 mg 06/19/21 19:20 Sodium Bicarbonate 325 Mg Tab FEEDTUBE PRN PRN For Clogged Feeding Tube Sodium Chloride 10 ml 06/11/21 22:00 07/08/21 09:54 Sodium Chloride 0.9% 10 Ml Flush Syringe IV 10 ml BID JOLENE Administration Sodium Chloride 10 ml 06/11/21 20:42 Sodium Chloride 0.9% 10 Ml Flush Syringe IV PRN PRN LINE FLUSH Trazodone HCl 100 mg 07/05/21 22:00 07/07/21 21:34 Trazodone 50 Mg Tab PO 100 mg QHS JOLENE Administration Nutrition/Malnutrition Assess - Dietary Evaluation Nutrition/Malnutrition Findings: Nutrition Notes Start: 06/16/21 12:10 Freq: Status: Active Protocol: Document 07/08/21 14:32 BRITNI (Rec: 07/08/21 14:43 BRITNI [id number]) Nutrition Notes Initial or Follow up Reassessment Current Diagnosis Diabetes,Hypertension, Respiratory Failure Other Pertinent Diagnosis Jeremiah's Angina, s/p cardiac arrest Current Diet TF-Vital AF 1.2 Quan at 50 ml/ hr Labs/Tests BG 183 POC Glu range since last assessment: 121-246 Pertinent Medications Reviewed Height 5 ft 8 in Weight 108.6 kg [place] Body Weight (kg) 63.63 BMI 36.3 Weight change and time frame Wt change noted Weight Status Obese Subjective/Other Information TF off at time of visit (12:38 ). Pt scheduled for trach down-sizing today. Pt currently on T-piece at 28% and awaiting placement of Passey-Ann valve. (R) chest tube removed on 06/29. Per RN, pt had been tolerating TF at goal rate. Percent of energy/protein needs met: 95% energy 71% pro Burn Absent Trauma Absent #1 Nutrition Diagnosis Inadequate oral intake Diagnosis Progress(for reassessment Continues documentation) Is patient on ventilator? No Is Patient Ambulatory and/or Out of Bed No REE-([place]-confined to bed) 196.292 Kcal/Kg value to use for calculation 14 Approximate Energy Requirements Using 1520 kcal/Kg Calculation Used for Recommendations Kcal/kg Additional Notes Pro needs 2g/kg IBW: 127g/day Fluid needs 1ml/kcal Nutrition Intervention Nutrition Support: Continue Vital AF 1.2 Quan at 50 ml/hr with 80ml water flush q4h. Kcal 1,440 Protein (gm) 90 Carbohydrates (gm) 133 Fat (gm) 65 Fluid (mL) 973 Fiber (gm) 6 Goal #1 TF tolerance Goal #2 TF to meet nutrient needs as best possible Follow-Up By: 07/15/21 Additional Comments F/U: stable TF, wt, resp status <MIKE CORTEZ E - Last Filed: 07/09/21 07:28> Assessment and Plan Assessment and plan: I saw and evaluated the patient. I agree with the findings and the plan of care as documented in the Nurse Practitioner's~note, with the following corrections and additions. For trach downsizing today I saw and evaluated the patient. I agree with the findings and the plan of care as documented in the Nurse Practitioner's~note, with the following corrections and additions. Hospitalist Physical - Constitutional Vitals: Temp Pulse Resp BP Pulse Ox 99.1 F 89 20 147/76 100 07/09/21 04:00 07/09/21 06:30 07/09/21 06:30 07/09/21 06:30 07/09/21 06:30 HEART Score - HEART Score Troponin: Troponin T < 0.010 ng/mL (0.00-0.029) 06/11/21 23:21 Results - Labs CBC & Chem 7: 07/09/21 06:10 07/09/21 06:10 Labs: Laboratory Last Values WBC 5.2 K/mm3 (4.5-11.0) 07/09/21 06:10 RBC 2.96 M/mm3 (3.65-5.03) L 07/09/21 06:10 Hgb 7.8 gm/dl (10.1-14.3) L 07/09/21 06:10 Hct 23.5 % (30.3-42.9) L 07/09/21 06:10 MCV 79 fl (79-97) 07/09/21 06:10 MCH 27 pg (28-32) L 07/09/21 06:10 MCHC 33 % (30-34) 07/09/21 06:10 RDW 20.9 % (13.2-15.2) H 07/09/21 06:10 Plt Count 307 K/mm3 (140-440) 07/09/21 06:10 Lymph % (Auto) 6.1 % (13.4-35.0) L 07/04/21 05:13 [place] % (Auto) 6.6 % (0.0-7.3) 07/04/21 05:13 Eos % (Auto) 1.8 % (0.0-4.3) 07/04/21 05:13 Baso % (Auto) 0.5 % (0.0-1.8) 07/04/21 05:13 Lymph # (Auto) 0.6 K/mm3 (1.2-5.4) L 07/04/21 05:13 [place] # (Auto) 0.6 K/mm3 (0.0-0.8) 07/04/21 05:13 Eos # (Auto) 0.2 K/mm3 (0.0-0.4) 07/04/21 05:13 Baso # (Auto) 0.0 K/mm3 (0.0-0.1) 07/04/21 05:13 Add Manual Diff Complete 06/30/21 04:25 Total Counted 100 06/30/21 04:25 Seg Neutrophils % 85.0 % (40.0-70.0) H 07/04/21 05:13 Seg Neuts % (Manual) 81.0 % (40.0-70.0) H 06/30/21 04:25 Band Neutrophils % 0 % 06/30/21 04:25 Lymphocytes % (Manual) 10.0 % (13.4-35.0) L 06/30/21 04:25 Reactive Lymphs % (Man) 0 % 06/30/21 04:25 Monocytes % (Manual) 8.0 % (0.0-7.3) H 06/30/21 04:25 Eosinophils % (Manual) 1.0 % (0.0-4.3) 06/30/21 04:25 Basophils % (Manual) 0 % (0.0-1.8) 06/30/21 04:25 Metamyelocytes % 0 % 06/30/21 04:25 Myelocytes % 0 % 06/30/21 04:25 Promyelocytes % 0 % 06/30/21 04:25 Blast Cells % 0 % 06/30/21 04:25 Nucleated RBC % Not Reportable 06/30/21 04:25 Seg Neutrophils # 8.0 K/mm3 (1.8-7.7) H 07/04/21 05:13 Seg Neutrophils # Man 10.5 K/mm3 (1.8-7.7) H 06/30/21 04:25 Band Neutrophils # 0.0 K/mm3 06/30/21 04:25 Lymphocytes # (Manual) 1.3 K/mm3 (1.2-5.4) 06/30/21 04:25 Abs React Lymphs (Man) 0.0 K/mm3 06/30/21 04:25 Monocytes # (Manual) 1.0 K/mm3 (0.0-0.8) H 06/30/21 04:25 Eosinophils # (Manual) 0.1 K/mm3 (0.0-0.4) 06/30/21 04:25 Basophils # (Manual) 0.0 K/mm3 (0.0-0.1) 06/30/21 04:25 Metamyelocytes # 0.0 K/mm3 06/30/21 04:25 Myelocytes # 0.0 K/mm3 06/30/21 04:25 Promyelocytes # 0.0 K/mm3 06/30/21 04:25 Blast Cells # 0.0 K/mm3 06/30/21 04:25 WBC Morphology Not Reportable 06/30/21 04:25 Hypersegmented Neuts Not Reportable 06/30/21 04:25 Hyposegmented Neuts Not Reportable 06/30/21 04:25 Hypogranular Neuts Not Reportable 06/30/21 04:25 Smudge Cells Not Reportable 06/30/21 04:25 Toxic Granulation Not Reportable 06/30/21 04:25 Toxic Vacuolation Not Reportable 06/30/21 04:25 Dohle Bodies Not Reportable 06/30/21 04:25 Pelger-Huet Anomaly Not Reportable 06/30/21 04:25 Dennis Rods Not Reportable 06/30/21 04:25 Platelet Estimate Consistent w auto 06/30/21 04:25 Clumped Platelets Not Reportable 06/30/21 04:25 Plt Clumps, EDTA Not Reportable 06/30/21 04:25 Large Platelets Few 06/30/21 04:25 Giant Platelets Not Reportable 06/30/21 04:25 Platelet Satelliting Not Reportable 06/30/21 04:25 Plt Morphology Comment Not Reportable 06/30/21 04:25 RBC Morphology Not Reportable 06/30/21 04:25 Dimorphic RBCs Not Reportable 06/30/21 04:25 Polychromasia Rare 06/30/21 04:25 Hypochromasia 1+ 06/30/21 04:25 Poikilocytosis Not Reportable 06/30/21 04:25 Anisocytosis 1+ 06/30/21 04:25 Microcytosis Not Reportable 06/30/21 04:25 Macrocytosis Not Reportable 06/30/21 04:25 Spherocytes Not Reportable 06/30/21 04:25 Pappenheimer Bodies Not Reportable 06/30/21 04:25 Sickle Cells Not Reportable 06/30/21 04:25 Target Cells Rare 06/30/21 04:25 Tear Drop Cells Few 06/30/21 04:25 Ovalocytes Not Reportable 06/30/21 04:25 Stomatocytes Few 06/12/21 01:45 Helmet Cells Not Reportable 06/30/21 04:25 [place] Bodies Not Reportable 06/30/21 04:25 [place] Rings Not Reportable 06/30/21 04:25 [place] Cells Not Reportable 06/30/21 04:25 Bite Cells Not Reportable 06/30/21 04:25 Crenated Cell Not Reportable 06/30/21 04:25 Elliptocytes Not Reportable 06/30/21 04:25 Acanthocytes (Spur) Not Reportable 06/30/21 04:25 Rouleaux Not Reportable 06/30/21 04:25 Hemoglobin C Crystals Not Reportable 06/30/21 04:25 Schistocytes Not Reportable 06/30/21 04:25 Malaria parasites Not Reportable 06/30/21 04:25 Edin Bodies Not Reportable 06/30/21 04:25 Hem Pathologist Commnt No 06/30/21 04:25 PT 18.3 Sec. (12.2-14.9) H 06/20/21 04:33 INR 1.37 (0.87-1.13) H 06/20/21 04:33 APTT 26.4 Sec. (24.2-36.6) 06/13/21 Unknown Fibrinogen 546 mg/dl (211-480) H 06/13/21 Unknown D-Dimer 1244.63 ng/mlDDU (0-234) H 06/13/21 Unknown ABG pH 7.448 pH Units (7.350-7.450) 07/04/21 01:44 POC ABG pCO2 25.6 mmHg (32.0-48.0) L 06/13/21 04:31 ABG pCO2 39.5 mm Hg 07/04/21 01:44 POC ABG pO2 138.8 mmHg (83-108) H 06/13/21 04:31 ABG pO2 107.7 mm Hg (80.0-90.0) H 07/04/21 01:44 POC ABG HCO3 21.4 06/13/21 04:31 ABG HCO3 26.7 mmol/L (20.0-26.0) H 07/04/21 01:44 ABG O2 Saturation 98.0 % (95.0-99.0) 07/04/21 01:44 ABG O2 Content 10.3 (0.0-44) 07/04/21 01:44 POC ABG Base Excess -0.7 06/13/21 04:31 ABG Base Excess 2.5 mmol/L (-2.0-3.0) 07/04/21 01:44 ABG Hemoglobin 7.5 gm/dl (12.0-16.0) L 07/04/21 01:44 ABG Oxyhemoglobin 98.1 (94-98) H 06/13/21 04:31 ABG Carboxyhemoglobin 1.6 % (0.0-5.0) 07/04/21 01:44 ABG Methemoglobin 0.6 % (0.0-1.5) 07/04/21 01:44 Oxyhemoglobin 95.9 % (95.0-99.0) 07/04/21 01:44 Carboxyhemoglobin 0.8 (0.5-1.5) 06/13/21 04:31 FiO2 35 % 07/04/21 01:44 FiO2 % 40.0 06/13/21 04:31 Sodium 138 mmol/L (137-145) 07/09/21 06:10 Potassium 3.8 mmol/L (3.6-5.0) 07/09/21 06:10 Chloride 103.8 mmol/L (98-107) 07/09/21 06:10 Carbon Dioxide 27 mmol/L (22-30) 07/09/21 06:10 Anion Gap 11 mmol/L 07/09/21 06:10 BUN 14 mg/dL (7-17) 07/09/21 06:10 Creatinine 0.7 mg/dL (0.6-1.2) 07/09/21 06:10 Estimated GFR > 60 ml/min 07/09/21 06:10 BUN/Creatinine Ratio 20 % 07/09/21 06:10 Glucose 168 mg/dL (65-100) H 07/09/21 06:10 POC Glucose 174 mg/dL (70-105) H 07/09/21 06:03 Lactic Acid 5.30 mmol/L (0.7-2.0) H* 06/13/21 15:45 Calcium 8.2 mg/dL (8.4-10.2) L 07/09/21 06:10 Phosphorus 3.70 mg/dL (2.5-4.5) D 07/08/21 04:20 Magnesium 1.90 mg/dL (1.7-2.3) 07/08/21 04:20 Total Bilirubin 0.40 mg/dL (0.1-1.2) 06/15/21 03:56 AST 64 units/L (5-40) H 06/15/21 03:56 ALT 106 units/L (7-56) H 06/15/21 03:56 Alkaline Phosphatase 55 units/L (35-129) 06/15/21 03:56 Troponin T < 0.010 ng/mL (0.00-0.029) 06/11/21 23:21 C-Reactive Protein 3.30 mg/dL (0.00-1.30) H 06/16/21 04:32 Total Protein 5.1 g/dL (6.3-8.2) L 06/15/21 03:56 Albumin 2.9 g/dL (3.9-5) L 06/15/21 03:56 Albumin/Globulin Ratio 1.3 % 06/15/21 03:56 Triglycerides 254 mg/dL (2-149) H 06/21/21 04:42 Vitamin B12 647.0 pg/mL (211-911) 07/08/21 15:36 TSH 1.050 mlU/mL (0.270-4.200) 07/08/21 15:36 Urine Color Yellow (Yellow) 06/12/21 17:00 Urine Turbidity Clear (Clear) 06/12/21 17:00 Urine pH 5.0 (5.0-7.0) 06/12/21 17:00 Ur Specific [place] 1.035 (1.003-1.030) H 06/12/21 17:00 Urine Protein 30 mg/dl mg/dL (Negative) 06/12/21 17:00 Urine Glucose (UA) 50 mg/dL (Negative) 06/12/21 17:00 Urine Ketones Tr mg/dL (Negative) 06/12/21 17:00 Urine Blood Neg (Negative) 06/12/21 17:00 Urine Nitrite Neg (Negative) 06/12/21 17:00 Urine Bilirubin Neg (Negative) 06/12/21 17:00 Urine Urobilinogen < 2.0 mg/dL (<2.0) 06/12/21 17:00 Ur Leukocyte Esterase Neg (Negative) 06/12/21 17:00 Urine WBC (Auto) < 1.0 /HPF (0.0-6.0) 06/12/21 17:00 Urine RBC (Auto) < 1.0 /HPF (0.0-6.0) 06/12/21 17:00 Urine Creatinine 81.1 mg/dL (0.1-20.0) H 06/15/21 10:40 Urine Sodium 42 mmol/L 06/15/21 10:40 Coronavirus (PCR) Negative (Negative) 06/12/21 09:50 Blood Type O POSITIVE 06/24/21 06:40 Antibody Screen Negative 06/24/21 06:40 Crossmatch See Detail 06/24/21 06:40 Lujan/IV: Voiding Method Indwelling Catheter Active Medications - Current Medications Current Medications: Generic Name Dose Route Start Last Admin Trade Name Freq PRN Reason Stop Dose Admin Hydrocodone Bitart/Acetaminophen 1 each 07/04/21 10:00 07/09/21 06:15 Hydrocodone/Acetaminophen 5-325 Mg Tab PO 1 each Q6H PRN Administration Pain, Moderate (4-6) Amlodipine Besylate 5 mg 06/23/21 10:00 07/08/21 09:53 Amlodipine 5 Mg Tab PO 5 mg QDAY JOLENE Administration Lipase/Protease/Amylase 1 each 06/19/21 19:20 Lipase 10,500/Protease 25,000/Amylase 43,750 (Units) Dr Melgar FEEDTUBE PRN PRN For Clogged Feeding Tube Atorvastatin Calcium 20 mg 06/22/21 22:00 07/08/21 21:35 Atorvastatin 20 Mg Tab PO 20 mg QHS JOLENE Administration Baclofen 10 mg 07/07/21 11:39 07/09/21 02:15 Baclofen 10 Mg Tab PO 10 mg BID PRN Administration Muscle pain Enoxaparin Sodium 40 mg 06/30/21 22:00 07/08/21 21:35 Enoxaparin 40 Mg/0.4 Ml Inj SUB-Q 40 mg QDAY@2200 JOLENE Administration Protocol Famotidine 20 mg 06/24/21 22:00 07/08/21 21:35 Famotidine 20 Mg Tab FEEDTUBE 20 mg BID JOLENE Administration Gabapentin 100 mg 07/07/21 14:00 07/08/21 21:35 Gabapentin 100 Mg Cap PO 100 mg TID JOLENE Administration Hydralazine HCl 100 mg 06/22/21 19:00 07/09/21 06:27 Hydralazine 100 Mg Tab FEEDTUBE 100 mg Q8HR JOLENE Administration Insulin Glargine 30 units 07/04/21 22:00 07/08/21 21:59 Insulin Glargine 100 Units/Ml SUB-Q 30 units QHS JOLENE Administration Insulin Human Lispro 0 unit 06/12/21 12:00 07/09/21 06:27 Insulin Lispro 100 Unit/Ml SUB-Q 3 unit Q6HR JOLENE Administration Protocol Labetalol HCl 10 mg 06/21/21 18:00 07/08/21 18:11 Labetalol 20 Mg/4 Ml Inj IV 10 mg Q4HR PRN Administration Hypertension Melatonin 5 mg 07/05/21 22:00 07/08/21 21:35 Melatonin 5 Mg Tab PO 5 mg QHS JOLENE Administration Metoclopramide HCl 10 mg 06/11/21 20:42 Metoclopramide 10 Mg/2 Ml Inj IV Q6H PRN Nausea And Vomiting Ondansetron HCl 4 mg 06/11/21 20:42 Ondansetron 4 Mg/2 Ml Inj IV Q3H PRN Nausea And Vomiting Simple Syrup 15 ml 06/19/21 19:20 Simple Syrup 15 Ml FEEDTUBE PRN PRN Hypoglycemia Simple Syrup 30 ml 06/19/21 19:20 Simple Syrup 15 Ml FEEDTUBE PRN PRN Hypoglycemia Sodium Bicarbonate 325 mg 06/19/21 19:20 Sodium Bicarbonate 325 Mg Tab FEEDTUBE PRN PRN For Clogged Feeding Tube Sodium Chloride 10 ml 06/11/21 22:00 07/08/21 22:00 Sodium Chloride 0.9% 10 Ml Flush Syringe IV 10 ml BID JOLENE Administration Sodium Chloride 10 ml 06/11/21 20:42 Sodium Chloride 0.9% 10 Ml Flush Syringe IV PRN PRN LINE FLUSH Trazodone HCl 100 mg 07/05/21 22:00 07/08/21 21:34 Trazodone 50 Mg Tab PO 100 mg QHS JOLENE Administration Nutrition/Malnutrition Assess - Dietary Evaluation Nutrition/Malnutrition Findings: Nutrition Notes Start: 06/16/21 12:10 Freq: Status: Active Protocol: Document 07/08/21 14:32 BRITNI (Rec: 07/08/21 14:43 BRITNI [id number]) Nutrition Notes Initial or Follow up Reassessment Current Diagnosis Diabetes,Hypertension, Respiratory Failure Other Pertinent Diagnosis Jeremiah's Angina, s/p cardiac arrest Current Diet TF-Vital AF 1.2 Quan at 50 ml/ hr Labs/Tests BG 183 POC Glu range since last assessment: 121-246 Pertinent Medications Reviewed Height 5 ft 8 in Weight 108.6 kg [place] Body Weight (kg) 63.63 BMI 36.3 Weight change and time frame Wt change noted Weight Status Obese Subjective/Other Information TF off at time of visit (12:38 ). Pt scheduled for trach down-sizing today. Pt currently on T-piece at 28% and awaiting placement of Passey-Ann valve. (R) chest tube removed on 06/29. Per RN, pt had been tolerating TF at goal rate. Percent of energy/protein needs met: 95% energy 71% pro Burn Absent Trauma Absent #1 Nutrition Diagnosis Inadequate oral intake Diagnosis Progress(for reassessment Continues documentation) Is patient on ventilator? No Is Patient Ambulatory and/or Out of Bed No REE-([place]-confined to bed) 1961.292 Kcal/Kg value to use for calculation 14 Approximate Energy Requirements Using 1520 kcal/Kg Calculation Used for Recommendations Kcal/kg Additional Notes Pro needs 2g/kg IBW: 127g/day Fluid needs 1ml/kcal Nutrition Intervention Nutrition Support: Continue Vital AF 1.2 Quan at 50 ml/hr with 80ml water flush q4h. Kcal 1,440 Protein (gm) 90 Carbohydrates (gm) 133 Fat (gm) 65 Fluid (mL) 973 Fiber (gm) 6 Goal #1 TF tolerance Goal #2 TF to meet nutrient needs as best possible Follow-Up By: 07/15/21 Additional Comments F/U: stable TF, wt, resp status
[2021-07-08] MEDS ORDERED: POTASSIUM CHLORIDE 20 MEQ PACKET FEEDTUBE ONE (18:00)
[2021-07-08] MEDS: HYDROcodone/ACETAMINOPHEN 5-325 MG TAB PO PRN ×2 (18:10→23:50)
[2021-07-08] MEDS: traZODone 50 MG TAB PO SCH (21:34)
[2021-07-08] MEDS: ENOXAPARIN 40 MG/0.4 ML INJ SUB-Q SCH (21:35)
[2021-07-08] MEDS: MELATONIN 5 MG TAB PO SCH (21:35)
[2021-07-08] MEDS: INSULIN GLARGINE 100 UNITS/ML SUB-Q SCH (21:59)
[2021-07-09] MEDS: HYDROcodone/ACETAMINOPHEN 5-325 MG TAB PO PRN ×2 (06:15→19:37)
[2021-07-09] MEDS: hydrALAZINE 100 MG TAB FEEDTUBE SCH ×3 (06:27→21:29)
[2021-07-09] MEDS: INSULIN LISPRO 100 UNIT/ML SUB-Q SCH ×3 (06:27→18:50)
[2021-07-09 06:32] LABS: Hematocrit 23.5 % (30.3-42.9); Hemoglobin 7.8 gm/dl (10.1-14.3); Mean Corpuscular HGB Conc 33 % (30-34); Mean Corpuscular Volume 79 fl (79-97); Platelet Count 307 K/mm3 (140-440); Red Blood Count 2.96 M/mm3 (3.65-5.03)
[2021-07-09 06:39] LABS: Red Cell Distribution Width 20.9 % (13.2-15.2)
[2021-07-09 06:53] LABS: Blood Urea Nitrogen 14 mg/dL (7-17); Calcium 8.2 mg/dL (8.4-10.2); Hemolysis Index 3
[2021-07-09 06:56] LABS: BUN/Creatinine Ratio 20
[2021-07-09] MEDS: GABAPENTIN 100 MG CAP PO SCH ×3 (08:50→21:28)
[2021-07-09] MEDS: FAMOTIDINE 20 MG TAB FEEDTUBE SCH ×2 (09:15→21:30)
[2021-07-09] MEDS: amLODIPine 5 MG TAB PO SCH (09:15)
--- NOTE | 2021-07-09 09:43 | Progress Note ---
Assessment and Plan Assessment and Plan Assessment and plan: This is 76-year-old female with past medical history of diabetes mellitus type 2, hypertension and gout who was admitted to the hospital on 06/11/2021 with swel ling of the submandibular region/tongue and shortness of breath. 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 Patient was also noted to have severe coagulopathy due to Coumadin and probably component of hemorrhagic shock with blood loss anemia. S/p vasopressor support with Levophed and Fabian-Synephrine Patient had hospital course complicated by cardiac arrest on 06/14 with ROSC. Patient is status post trach and PEG tube placement on 06/19/2021. Patient was a code met overnight and transfer back in the ICU on 07/04/21 due to decreased level of consciousness, respiratory distress and tachypnea. neurology consulted today for evaluation of diffuse weakness r/o MG !! Assessment and Plan # Diffuse weakness -r/o MG -she is with mostly proximal weakness Bilateral upper and lower -no sign of cranial nerves involvement, -No sign to suggest MG based on exam. -findings in Hx and exam is most likley related to ICU Myopathy/ neuropathy -pt. will benefit from extensive PT/Rehabilitation -Check B12 and A1C,CK,TSH #Acute Pain - New report of BLE pain and swelling - BLE did appear swollen with palpable pedal pulses - BLE doppler pending - Resume gabapentin - Continue Lidocaine patch and PRN analgesic for pain control - Maintenance of sleep-wake cycle, continue Trazadone and melatonin - Continue mobility/strenght and conditioning with PT #Diabetes mellitus type 2 -Continue SSI Q6hrs -Lantus Qhs -Avoid Hypoglycemia #Acute Hypoxic Respiratory Failure -S/p emergent cricothyroidectomy with surgery with 8.00 ETT #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 from dental caries #Leukocytosis-improved -CT neck with contrast showed a significant right floor of mild swelling with extension into the submandibular and submental spaces, significant thickening and inflammation involving the right pharyngeal wall, with the parapharyngeal and retropharyngeal spaces at the level of the thyroid cartilage, epiglottis significantly swollen and so are the aryepiglottic folds resulting in signific ant airway narrowing at this level, no lymphadenopathy, symmetric submandibular and parathyroid glands, S few scattered caries but no periapical lucencies, nonspecific calcification along the right lateral oropharynx, no definite stone seen within the territory of the submandibular gland ducts, no suspicious rashes lesion #Hypokalemia -K repleted #Right-sided pneumothorax -s/p Right chest tube removed 06/29 -06/13 bronchoscopy showed possible blood clot in left lung which may be acting as mucous plug however it was left in place due to possible bleeding inside lung if removed. -06/16 CT chest shows moderate right pneumothorax with collapse of right upper lobe, right thoracostomy tube terminates at the collapsed right upper lobe, bilateral bronchus opacities compatible with infectious/inflammatory etiology, bilateral small pleural effusion, extensive subcutaneous air, small fluid collection in the anterior mediastinum is nonspecific #Hypertension #s/p Cardiac arrest -Patient s/p cardiac arrest with ROSC on 06/14. -S/p vasopressor support with Levophed and Fabian-Synephrine -06/13 Echocardiogram EF 65-70% -BP is stable continue current anihypertensive regimen -Continue blood pressure monitor per protocol -PRN labetalol for SBP greater than 160 -CT brain and or MRI brain r/o bleeding , and or water shed infarct !!! #Coagulopathy-resolved #Acute blood loss anemia-resolved -Patient was on coumadin at home -Continue Lovenix SubQ -Transfuse hemoglobin less than 7 -Monitor for signs of bleeding #GI/DVT Prophylaxis -PPI- Pepcid -Continue AC-Lovenox -SCDs to BLE while in bed The high probability of a clinically significant, sudden or life threatening deterioration of the [multiple] system(s) required my full and direct attention, intervention and personal management. The aggregate critical care time was [60] minutes. This time is in addition to time spent performing reported procedures but includes the following: [x] Data Review and interpretation [x] Patient assessment and monitoring of vital signs [x] Documentation [x] Medication orders and management Disposition Plan: ICU Total Time Spent with Patient (Minutes): 45 Subjective Date of service: 07/09/21 Interval history: doing well alert interactive she is on T tube for breathing/tracheostomy Objective - Vital Sign Vital Signs - 12hr 07/08/21 07/08/21 07/08/21 22:00 22:30 23:00 Temperature Pulse Rate 86 89 93 H Pulse Rate [ From Monitor] Respiratory 24 25 H 22 Rate Blood Pressure 129/68 130/67 122/68 O2 Sat by Pulse 97 98 99 Oximetry O2 Sat by Pulse Oximetry [ Assessment] 07/08/21 07/08/21 07/08/21 23:19 23:20 23:30 Temperature Pulse Rate 87 90 Pulse Rate [ From Monitor] Respiratory 16 24 Rate Blood Pressure 122/68 114/75 O2 Sat by Pulse 99 98 Oximetry O2 Sat by Pulse 100 Oximetry [ Assessment] 07/09/21 07/09/21 07/09/21 00:00 00:30 01:00 Temperature 98.8 F Pulse Rate 87 84 87 Pulse Rate [ 85 From Monitor] Respiratory 21 15 23 Rate Blood Pressure 119/68 128/70 118/64 O2 Sat by Pulse 99 97 96 Oximetry O2 Sat by Pulse Oximetry [ Assessment] 07/09/21 07/09/21 07/09/21 01:30 02:00 02:30 Temperature Pulse Rate 92 H 87 87 Pulse Rate [ From Monitor] Respiratory 13 21 19 Rate Blood Pressure 130/86 118/69 106/73 O2 Sat by Pulse 94 98 99 Oximetry O2 Sat by Pulse Oximetry [ Assessment] 07/09/21 07/09/21 07/09/21 03:01 03:30 04:00 Temperature 99.1 F Pulse Rate 87 88 87 Pulse Rate [ 88 From Monitor] Respiratory 20 19 16 Rate Blood Pressure 136/75 130/77 142/89 O2 Sat by Pulse 98 99 99 Oximetry O2 Sat by Pulse Oximetry [ Assessment] 07/09/21 07/09/21 07/09/21 04:20 04:31 05:00 Temperature Pulse Rate 82 87 Pulse Rate [ From Monitor] Respiratory 22 14 Rate Blood Pressure 151/83 158/78 O2 Sat by Pulse 98 98 Oximetry O2 Sat by Pulse 99 Oximetry [ Assessment] 07/09/21 07/09/21 07/09/21 05:30 06:00 06:30 Temperature Pulse Rate 88 87 89 Pulse Rate [ From Monitor] Respiratory 22 26 H 20 Rate Blood Pressure 158/84 149/85 147/76 O2 Sat by Pulse 99 99 100 Oximetry O2 Sat by Pulse Oximetry [ Assessment] 07/09/21 07/09/21 07/09/21 07:00 07:30 08:00 Temperature Pulse Rate 90 90 91 H Pulse Rate [ 91 H From Monitor] Respiratory 22 22 22 Rate Blood Pressure 139/70 143/76 139/72 O2 Sat by Pulse 100 100 100 Oximetry O2 Sat by Pulse Oximetry [ Assessment] 07/09/21 07/09/21 07/09/21 08:10 08:11 08:30 Temperature Pulse Rate 89 Pulse Rate [ From Monitor] Respiratory 15 Rate Blood Pressure 145/69 O2 Sat by Pulse 100 100 Oximetry O2 Sat by Pulse 100 Oximetry [ Assessment] 07/09/21 07/09/21 09:00 09:15 Temperature Pulse Rate 90 93 H Pulse Rate [ From Monitor] Respiratory 18 Rate Blood Pressure 133/70 133/70 O2 Sat by Pulse 99 Oximetry O2 Sat by Pulse Oximetry [ Assessment] - General Apperance Constitutional: comfortable - EENT EENT: PERRL, mucous membranes moist - Respiratory Respiratory: lungs clear, rhonchi - Cardiovascular Cardiovascular: regular rate, normal S1, normal S2 Extremities: no peripheral edema bilat, no clubbing, cyanosis - Gastrointestinal Gastrointestinal: normoactive bowel sounds - Integumentary Integumentary: normal - Neurologic Cranial nerve examination: PERRL, EOMI, intact Speech examination: other (tracheostomy tube, no aphasia) Detailed motor examination: other (Bilateral proximal motor weakness upper> Lower, suppressed reflexes, no cranial weakness is noted neck muscles are intact) Motor examination - right side: 1/5: biceps - Laboratory Findings CBC and BMP: 07/09/21 06:10 07/09/21 06:10 Abnormal Lab Findings: Abnormal Labs 06/11/21 06/11/21 06/11/21 15:23 15:23 19:20 WBC 12.0 H RBC Hgb Hct MCV 72 L MCH 21 L RDW 17.5 H Plt Count Lymph % (Auto) 12.9 L [place] % (Auto) 8.6 H Lymph # (Auto) [place] # (Auto) 1.0 H Seg Neutrophils % 77.4 H Seg Neuts % (Manual) Lymphocytes % (Manual) Monocytes % (Manual) Seg Neutrophils # 9.3 H Seg Neutrophils # Man Lymphocytes # (Manual) Monocytes # (Manual) PT INR APTT Fibrinogen D-Dimer ABG pH POC ABG pCO2 POC ABG pO2 ABG pO2 ABG HCO3 ABG O2 Saturation ABG Base Excess ABG Hemoglobin ABG Oxyhemoglobin Oxyhemoglobin Sodium Potassium Chloride Carbon Dioxide BUN Creatinine Glucose 144 H POC Glucose Lactic Acid Calcium Phosphorus Magnesium AST ALT Alkaline Phosphatase C-Reactive Protein Total Protein Albumin Triglycerides Ur Specific [place] Urine Creatinine Crossmatch See Detail 06/11/21 06/11/21 06/11/21 19:29 19:29 23:21 WBC 15.8 H RBC Hgb 9.4 L Hct MCV 72 L MCH 22 L RDW 17.4 H Plt Count Lymph % (Auto) 9.2 L [place] % (Auto) Lymph # (Auto) [place] # (Auto) Seg Neutrophils % 89.0 H Seg Neuts % (Manual) Lymphocytes % (Manual) Monocytes % (Manual) Seg Neutrophils # 14.0 H Seg Neutrophils # Man Lymphocytes # (Manual) Monocytes # (Manual) PT 72.9 H INR 8.18 H* APTT 71.7 H* Fibrinogen D-Dimer ABG pH POC ABG pCO2 POC ABG pO2 ABG pO2 ABG HCO3 ABG O2 Saturation ABG Base Excess ABG Hemoglobin ABG Oxyhemoglobin Oxyhemoglobin Sodium 149 H D Potassium Chloride 124.3 H Carbon Dioxide 8 L* D BUN Creatinine 0.3 L Glucose 628 H* POC Glucose Lactic Acid Calcium 2.4 L* D Phosphorus Magnesium AST ALT < 5 L Alkaline Phosphatase 19 L C-Reactive Protein Total Protein 1.6 L D Albumin 0.8 L Triglycerides Ur Specific [place] Urine Creatinine Crossmatch 06/11/21 06/11/21 06/11/21 23:21 23:22 23:42 WBC RBC Hgb Hct MCV MCH 27 L RDW 22.2 H Plt Count 131 L Lymph % (Auto) [place] % (Auto) Lymph # (Auto) [place] # (Auto) Seg Neutrophils % Seg Neuts % (Manual) Lymphocytes % (Manual) Monocytes % (Manual) Seg Neutrophils # Seg Neutrophils # Man Lymphocytes # (Manual) Monocytes # (Manual) PT 46.3 H INR 4.55 H APTT 54.8 H Fibrinogen D-Dimer ABG pH POC ABG pCO2 POC ABG pO2 325.9 H ABG pO2 ABG HCO3 ABG O2 Saturation ABG Base Excess ABG Hemoglobin 8.0 L ABG Oxyhemoglobin 99.0 H Oxyhemoglobin Sodium Potassium Chloride Carbon Dioxide BUN Creatinine Glucose POC Glucose Lactic Acid Calcium Phosphorus Magnesium AST ALT Alkaline Phosphatase C-Reactive Protein Total Protein Albumin Triglycerides Ur Specific [place] Urine Creatinine Crossmatch 06/12/21 06/12/21 06/12/21 01:45 01:45 01:45 WBC 21.6 H RBC 3.04 L Hgb 6.7 L D Hct 22.4 L D MCV 74 L MCH 22 L RDW 18.9 H Plt Count Lymph % (Auto) [place] % (Auto) Lymph # (Auto) [place] # (Auto) Seg Neutrophils % Seg Neuts % (Manual) 76.0 H Lymphocytes % (Manual) 2.0 L Monocytes % (Manual) 8.0 H Seg Neutrophils # Seg Neutrophils # Man 16.4 H Lymphocytes # (Manual) 0.4 L Monocytes # (Manual) 1.7 H PT 25.4 H INR 2.10 H APTT Fibrinogen D-Dimer ABG pH POC ABG pCO2 POC ABG pO2 ABG pO2 ABG HCO3 ABG O2 Saturation ABG Base Excess ABG Hemoglobin ABG Oxyhemoglobin Oxyhemoglobin Sodium Potassium 5.6 H D Chloride Carbon Dioxide 20 L D BUN Creatinine Glucose 368 H POC Glucose Lactic Acid Calcium 7.1 L D Phosphorus Magnesium AST ALT Alkaline Phosphatase C-Reactive Protein Total Protein 5.3 L D Albumin 3.1 L Triglycerides Ur Specific [place] Urine Creatinine Crossmatch 06/12/21 06/12/21 06/12/21 02:05 04:41 11:05 WBC 14.6 H RBC 3.52 L Hgb 8.5 L Hct 27.7 L MCV MCH 24 L RDW 20.9 H Plt Count Lymph % (Auto) [place] % (Auto) Lymph # (Auto) [place] # (Auto) Seg Neutrophils % Seg Neuts % (Manual) Lymphocytes % (Manual) Monocytes % (Manual) Seg Neutrophils # Seg Neutrophils # Man Lymphocytes # (Manual) Monocytes # (Manual) PT INR APTT Fibrinogen D-Dimer ABG pH POC ABG pCO2 POC ABG pO2 224.6 H ABG pO2 ABG HCO3 ABG O2 Saturation ABG Base Excess ABG Hemoglobin 7.3 L ABG Oxyhemoglobin 98.7 H Oxyhemoglobin Sodium Potassium Chloride Carbon Dioxide BUN Creatinine Glucose POC Glucose 308 H Lactic Acid Calcium Phosphorus Magnesium AST ALT Alkaline Phosphatase C-Reactive Protein Total Protein Albumin Triglycerides Ur Specific [place] Urine Creatinine Crossmatch 06/12/21 06/12/21 06/12/21 11:05 11:05 12:18 WBC RBC Hgb Hct MCV MCH RDW Plt Count Lymph % (Auto) [place] % (Auto) Lymph # (Auto) [place] # (Auto) Seg Neutrophils % Seg Neuts % (Manual) Lymphocytes % (Manual) Monocytes % (Manual) Seg Neutrophils # Seg Neutrophils # Man Lymphocytes # (Manual) Monocytes # (Manual) PT 16.8 H INR 1.23 H APTT Fibrinogen D-Dimer ABG pH POC ABG pCO2 POC ABG pO2 ABG pO2 ABG HCO3 ABG O2 Saturation ABG Base Excess ABG Hemoglobin ABG Oxyhemoglobin Oxyhemoglobin Sodium Potassium Chloride Carbon Dioxide BUN 24 H Creatinine Glucose 324 H POC Glucose 281 H Lactic Acid Calcium 7.5 L Phosphorus Magnesium AST 70 H ALT 57 H Alkaline Phosphatase C-Reactive Protein Total Protein 6.0 L Albumin 3.6 L Triglycerides Ur Specific [place] Urine Creatinine Crossmatch 06/12/21 06/12/21 06/12/21 17:00 17:00 17:00 WBC RBC Hgb 7.5 L Hct 24.0 L MCV MCH RDW Plt Count Lymph % (Auto) [place] % (Auto) Lymph # (Auto) [place] # (Auto) Seg Neutrophils % Seg Neuts % (Manual) Lymphocytes % (Manual) Monocytes % (Manual) Seg Neutrophils # Seg Neutrophils # Man Lymphocytes # (Manual) Monocytes # (Manual) PT 16.0 H INR 1.16 H APTT Fibrinogen D-Dimer ABG pH POC ABG pCO2 POC ABG pO2 ABG pO2 ABG HCO3 ABG O2 Saturation ABG Base Excess ABG Hemoglobin ABG Oxyhemoglobin Oxyhemoglobin Sodium Potassium Chloride Carbon Dioxide BUN Creatinine Glucose POC Glucose Lactic Acid Calcium Phosphorus Magnesium AST ALT Alkaline Phosphatase C-Reactive Protein Total Protein Albumin Triglycerides Ur Specific [place] 1.035 H Urine Creatinine Crossmatch 06/12/21 06/12/21 06/12/21 18:06 23:00 23:05 WBC RBC Hgb 7.6 L Hct 23.5 L MCV MCH RDW Plt Count Lymph % (Auto) [place] % (Auto) Lymph # (Auto) [place] # (Auto) Seg Neutrophils % Seg Neuts % (Manual) Lymphocytes % (Manual) Monocytes % (Manual) Seg Neutrophils # Seg Neutrophils # Man Lymphocytes # (Manual) Monocytes # (Manual) PT INR APTT Fibrinogen D-Dimer ABG pH POC ABG pCO2 POC ABG pO2 ABG pO2 ABG HCO3 ABG O2 Saturation ABG Base Excess ABG Hemoglobin ABG Oxyhemoglobin Oxyhemoglobin Sodium Potassium Chloride Carbon Dioxide BUN Creatinine Glucose POC Glucose 257 H 300 H Lactic Acid Calcium Phosphorus Magnesium AST ALT Alkaline Phosphatase C-Reactive Protein Total Protein Albumin Triglycerides Ur Specific [place] Urine Creatinine Crossmatch 06/13/21 06/13/21 06/13/21 04:31 05:19 07:30 WBC RBC Hgb 6.8 L Hct 21.7 L MCV MCH RDW Plt Count Lymph % (Auto) [place] % (Auto) Lymph # (Auto) [place] # (Auto) Seg Neutrophils % Seg Neuts % (Manual) Lymphocytes % (Manual) Monocytes % (Manual) Seg Neutrophils # Seg Neutrophils # Man Lymphocytes # (Manual) Monocytes # (Manual) PT INR APTT Fibrinogen D-Dimer ABG pH 7.541 H POC ABG pCO2 25.6 L POC ABG pO2 138.8 H ABG pO2 ABG HCO3 ABG O2 Saturation ABG Base Excess ABG Hemoglobin 7.3 L ABG Oxyhemoglobin 98.1 H Oxyhemoglobin Sodium Potassium Chloride Carbon Dioxide BUN Creatinine Glucose POC Glucose 286 H Lactic Acid Calcium Phosphorus Magnesium AST ALT Alkaline Phosphatase C-Reactive Protein Total Protein Albumin Triglycerides Ur Specific [place] Urine Creatinine Crossmatch 06/13/21 06/13/21 06/13/21 07:30 12:04 14:50 WBC RBC Hgb Hct MCV MCH RDW Plt Count Lymph % (Auto) [place] % (Auto) Lymph # (Auto) [place] # (Auto) Seg Neutrophils % Seg Neuts % (Manual) Lymphocytes % (Manual) Monocytes % (Manual) Seg Neutrophils # Seg Neutrophils # Man Lymphocytes # (Manual) Monocytes # (Manual) PT INR APTT Fibrinogen D-Dimer ABG pH 7.039 L* 7.182 L* POC ABG pCO2 POC ABG pO2 ABG pO2 63.1 L ABG HCO3 17.4 L ABG O2 Saturation 73.4 L ABG Base Excess -12.6 L -7.1 L ABG Hemoglobin 7.7 L 6.9 L ABG Oxyhemoglobin Oxyhemoglobin 71.8 L 93.5 L Sodium Potassium Chloride 108.9 H Carbon Dioxide BUN 28 H Creatinine Glucose 293 H POC Glucose Lactic Acid Calcium 7.2 L Phosphorus Magnesium AST 106 H ALT 92 H Alkaline Phosphatase C-Reactive Protein Total Protein 5.6 L Albumin 3.3 L Triglycerides Ur Specific [place] Urine Creatinine Crossmatch 06/13/21 06/13/21 06/13/21 14:54 15:45 17:34 WBC RBC Hgb Hct MCV MCH RDW Plt Count Lymph % (Auto) [place] % (Auto) Lymph # (Auto) [place] # (Auto) Seg Neutrophils % Seg Neuts % (Manual) Lymphocytes % (Manual) Monocytes % (Manual) Seg Neutrophils # Seg Neutrophils # Man Lymphocytes # (Manual) Monocytes # (Manual) PT INR APTT Fibrinogen D-Dimer ABG pH POC ABG pCO2 POC ABG pO2 ABG pO2 178.4 H ABG HCO3 ABG O2 Saturation 99.1 H ABG Base Excess ABG Hemoglobin 8.0 L ABG Oxyhemoglobin Oxyhemoglobin Sodium Potassium Chloride 107.3 H Carbon Dioxide 19 L BUN 33 H Creatinine 1.5 H Glucose 379 H POC Glucose Lactic Acid 5.30 H* Calcium 6.8 L Phosphorus Magnesium AST ALT Alkaline Phosphatase C-Reactive Protein Total Protein Albumin Triglycerides Ur Specific [place] Urine Creatinine Crossmatch 06/13/21 06/13/21 06/13/21 17:40 23:29 Unknown WBC 22.5 H RBC 3.16 L Hgb 8.0 L Hct 26.0 L MCV MCH 26 L RDW 21.4 H Plt Count Lymph % (Auto) [place] % (Auto) Lymph # (Auto) [place] # (Auto) Seg Neutrophils % Seg Neuts % (Manual) 88.0 H Lymphocytes % (Manual) 4.0 L Monocytes % (Manual) Seg Neutrophils # Seg Neutrophils # Man 19.8 H Lymphocytes # (Manual) 0.9 L Monocytes # (Manual) 1.4 H PT INR APTT Fibrinogen D-Dimer ABG pH POC ABG pCO2 POC ABG pO2 ABG pO2 ABG HCO3 ABG O2 Saturation ABG Base Excess ABG Hemoglobin ABG Oxyhemoglobin Oxyhemoglobin Sodium Potassium Chloride Carbon Dioxide BUN Creatinine Glucose POC Glucose 294 H 288 H Lactic Acid Calcium Phosphorus Magnesium AST ALT Alkaline Phosphatase C-Reactive Protein Total Protein Albumin Triglycerides Ur Specific [place] Urine Creatinine Crossmatch 06/13/21 06/14/21 06/14/21 Unknown 05:39 06:15 WBC RBC 2.93 L Hgb 7.2 L Hct 23.2 L MCV MCH 25 L RDW 21.2 H Plt Count Lymph % (Auto) [place] % (Auto) Lymph # (Auto) [place] # (Auto) Seg Neutrophils % Seg Neuts % (Manual) Lymphocytes % (Manual) Monocytes % (Manual) Seg Neutrophils # Seg Neutrophils # Man Lymphocytes # (Manual) Monocytes # (Manual) PT 17.6 H INR 1.31 H APTT Fibrinogen 546 H D-Dimer 1244.63 H ABG pH POC ABG pCO2 POC ABG pO2 ABG pO2 ABG HCO3 ABG O2 Saturation ABG Base Excess ABG Hemoglobin ABG Oxyhemoglobin Oxyhemoglobin Sodium Potassium Chloride Carbon Dioxide BUN Creatinine Glucose POC Glucose 246 H Lactic Acid Calcium Phosphorus Magnesium AST ALT Alkaline Phosphatase C-Reactive Protein Total Protein Albumin Triglycerides Ur Specific [place] Urine Creatinine Crossmatch 06/14/21 06/14/21 06/14/21 06:15 06:15 09:13 WBC RBC Hgb Hct MCV MCH RDW Plt Count Lymph % (Auto) [place] % (Auto) Lymph # (Auto) [place] # (Auto) Seg Neutrophils % Seg Neuts % (Manual) Lymphocytes % (Manual) Monocytes % (Manual) Seg Neutrophils # Seg Neutrophils # Man Lymphocytes # (Manual) Monocytes # (Manual) PT INR APTT Fibrinogen D-Dimer ABG pH POC ABG pCO2 POC ABG pO2 ABG pO2 183.0 H ABG HCO3 ABG O2 Saturation 99.2 H ABG Base Excess ABG Hemoglobin 6.6 L ABG Oxyhemoglobin Oxyhemoglobin Sodium 147 H Potassium Chloride 112.5 H Carbon Dioxide 21 L BUN 36 H Creatinine 1.4 H Glucose 281 H POC Glucose Lactic Acid Calcium 6.9 L Phosphorus Magnesium AST ALT Alkaline Phosphatase C-Reactive Protein Total Protein Albumin Triglycerides 189 H Ur Specific [place] Urine Creatinine Crossmatch 06/14/21 06/14/21 06/14/21 10:45 12:16 13:30 WBC RBC Hgb 7.1 L Hct 22.3 L MCV MCH RDW Plt Count Lymph % (Auto) [place] % (Auto) Lymph # (Auto) [place] # (Auto) Seg Neutrophils % Seg Neuts % (Manual) Lymphocytes % (Manual) Monocytes % (Manual) Seg Neutrophils # Seg Neutrophils # Man Lymphocytes # (Manual) Monocytes # (Manual) PT INR APTT Fibrinogen D-Dimer ABG pH 7.205 L POC ABG pCO2 POC ABG pO2 ABG pO2 261.3 H ABG HCO3 ABG O2 Saturation 99.4 H ABG Base Excess -7.2 L ABG Hemoglobin 7.6 L ABG Oxyhemoglobin Oxyhemoglobin Sodium Potassium Chloride Carbon Dioxide BUN Creatinine Glucose POC Glucose 174 H Lactic Acid Calcium Phosphorus Magnesium AST ALT Alkaline Phosphatase C-Reactive Protein Total Protein Albumin Triglycerides Ur Specific [place] Urine Creatinine Crossmatch 06/14/21 06/14/21 06/15/21 17:40 18:43 00:06 WBC RBC Hgb Hct MCV MCH RDW Plt Count Lymph % (Auto) [place] % (Auto) Lymph # (Auto) [place] # (Auto) Seg Neutrophils % Seg Neuts % (Manual) Lymphocytes % (Manual) Monocytes % (Manual) Seg Neutrophils # Seg Neutrophils # Man Lymphocytes # (Manual) Monocytes # (Manual) PT INR APTT Fibrinogen D-Dimer ABG pH 7.292 L POC ABG pCO2 POC ABG pO2 ABG pO2 78.8 L ABG HCO3 ABG O2 Saturation ABG Base Excess -5.0 L ABG Hemoglobin 9.1 L ABG Oxyhemoglobin Oxyhemoglobin 93.7 L Sodium Potassium Chloride Carbon Dioxide BUN Creatinine Glucose POC Glucose 182 H 144 H Lactic Acid Calcium Phosphorus Magnesium AST ALT Alkaline Phosphatase C-Reactive Protein Total Protein Albumin Triglycerides Ur Specific [place] Urine Creatinine Crossmatch 06/15/21 06/15/21 06/15/21 03:55 03:56 10:40 WBC RBC Hgb 8.4 L Hct 25.8 L MCV MCH RDW Plt Count Lymph % (Auto) [place] % (Auto) Lymph # (Auto) [place] # (Auto) Seg Neutrophils % Seg Neuts % (Manual) Lymphocytes % (Manual) Monocytes % (Manual) Seg Neutrophils # Seg Neutrophils # Man Lymphocytes # (Manual) Monocytes # (Manual) PT INR APTT Fibrinogen D-Dimer ABG pH POC ABG pCO2 POC ABG pO2 ABG pO2 ABG HCO3 ABG O2 Saturation ABG Base Excess ABG Hemoglobin ABG Oxyhemoglobin Oxyhemoglobin Sodium 147 H Potassium Chloride 112.2 H Carbon Dioxide 21 L BUN 47 H Creatinine 1.9 H Glucose 272 H POC Glucose Lactic Acid Calcium 7.3 L Phosphorus Magnesium AST 64 H ALT 106 H Alkaline Phosphatase C-Reactive Protein Total Protein 5.1 L Albumin 2.9 L Triglycerides Ur Specific [place] Urine Creatinine 81.1 H Crossmatch 06/15/21 06/15/21 06/15/21 11:46 17:16 23:17 WBC RBC Hgb Hct MCV MCH RDW Plt Count Lymph % (Auto) [place] % (Auto) Lymph # (Auto) [place] # (Auto) Seg Neutrophils % Seg Neuts % (Manual) Lymphocytes % (Manual) Monocytes % (Manual) Seg Neutrophils # Seg Neutrophils # Man Lymphocytes # (Manual) Monocytes # (Manual) PT INR APTT Fibrinogen D-Dimer ABG pH POC ABG pCO2 POC ABG pO2 ABG pO2 ABG HCO3 ABG O2 Saturation ABG Base Excess ABG Hemoglobin ABG Oxyhemoglobin Oxyhemoglobin Sodium Potassium Chloride Carbon Dioxide BUN Creatinine Glucose POC Glucose 271 H 268 H 264 H Lactic Acid Calcium Phosphorus Magnesium AST ALT Alkaline Phosphatase C-Reactive Protein Total Protein Albumin Triglycerides Ur Specific [place] Urine Creatinine Crossmatch 06/15/21 06/15/21 06/16/21 Unknown Unknown 04:32 WBC RBC 3.21 L 3.16 L Hgb 8.4 L 8.2 L Hct 26.1 L 25.4 L MCV MCH 26 L 26 L RDW 21.3 H 21.2 H Plt Count 105 L 118 L Lymph % (Auto) [place] % (Auto) Lymph # (Auto) [place] # (Auto) Seg Neutrophils % Seg Neuts % (Manual) Lymphocytes % (Manual) Monocytes % (Manual) Seg Neutrophils # Seg Neutrophils # Man Lymphocytes # (Manual) Monocytes # (Manual) PT INR APTT Fibrinogen D-Dimer ABG pH 7.465 H POC ABG pCO2 POC ABG pO2 ABG pO2 114.1 H ABG HCO3 ABG O2 Saturation ABG Base Excess ABG Hemoglobin 8.4 L ABG Oxyhemoglobin Oxyhemoglobin Sodium Potassium Chloride Carbon Dioxide BUN Creatinine Glucose POC Glucose Lactic Acid Calcium Phosphorus Magnesium AST ALT Alkaline Phosphatase C-Reactive Protein Total Protein Albumin Triglycerides Ur Specific [place] Urine Creatinine Crossmatch 06/16/21 06/16/21 06/16/21 04:32 04:32 05:08 WBC RBC Hgb Hct MCV MCH RDW Plt Count Lymph % (Auto) [place] % (Auto) Lymph # (Auto) [place] # (Auto) Seg Neutrophils % Seg Neuts % (Manual) Lymphocytes % (Manual) Monocytes % (Manual) Seg Neutrophils # Seg Neutrophils # Man Lymphocytes # (Manual) Monocytes # (Manual) PT INR APTT Fibrinogen D-Dimer ABG pH POC ABG pCO2 POC ABG pO2 ABG pO2 ABG HCO3 ABG O2 Saturation ABG Base Excess ABG Hemoglobin ABG Oxyhemoglobin Oxyhemoglobin Sodium 148 H Potassium 3.3 L Chloride 115.1 H Carbon Dioxide 21 L BUN 54 H Creatinine 1.6 H Glucose 367 H POC Glucose 356 H Lactic Acid Calcium 7.4 L Phosphorus Magnesium AST ALT Alkaline Phosphatase C-Reactive Protein 3.30 H Total Protein Albumin Triglycerides Ur Specific [place] Urine Creatinine Crossmatch 06/16/21 06/16/21 06/16/21 05:30 11:46 17:03 WBC RBC Hgb Hct MCV MCH RDW Plt Count Lymph % (Auto) [place] % (Auto) Lymph # (Auto) [place] # (Auto) Seg Neutrophils % Seg Neuts % (Manual) Lymphocytes % (Manual) Monocytes % (Manual) Seg Neutrophils # Seg Neutrophils # Man Lymphocytes # (Manual) Monocytes # (Manual) PT INR APTT Fibrinogen D-Dimer ABG pH 7.475 H POC ABG pCO2 POC ABG pO2 ABG pO2 171.8 H ABG HCO3 ABG O2 Saturation 99.1 H ABG Base Excess ABG Hemoglobin 11.7 L ABG Oxyhemoglobin Oxyhemoglobin Sodium Potassium Chloride Carbon Dioxide BUN Creatinine Glucose POC Glucose 309 H 345 H Lactic Acid Calcium Phosphorus Magnesium AST ALT Alkaline Phosphatase C-Reactive Protein Total Protein Albumin Triglycerides Ur Specific [place] Urine Creatinine Crossmatch 06/16/21 06/16/21 06/17/21 20:18 23:22 04:50 WBC RBC Hgb Hct MCV MCH RDW Plt Count Lymph % (Auto) [place] % (Auto) Lymph # (Auto) [place] # (Auto) Seg Neutrophils % Seg Neuts % (Manual) Lymphocytes % (Manual) Monocytes % (Manual) Seg Neutrophils # Seg Neutrophils # Man Lymphocytes # (Manual) Monocytes # (Manual) PT INR APTT Fibrinogen D-Dimer ABG pH 7.479 H POC ABG pCO2 POC ABG pO2 ABG pO2 143.1 H ABG HCO3 ABG O2 Saturation ABG Base Excess ABG Hemoglobin 10.0 L ABG Oxyhemoglobin Oxyhemoglobin Sodium Potassium Chloride Carbon Dioxide BUN Creatinine Glucose POC Glucose 325 H 315 H Lactic Acid Calcium Phosphorus Magnesium AST ALT Alkaline Phosphatase C-Reactive Protein Total Protein Albumin Triglycerides Ur Specific [place] Urine Creatinine Crossmatch 06/17/21 06/17/21 06/17/21 05:18 05:30 05:30 WBC RBC 3.17 L Hgb 8.2 L Hct 25.5 L MCV MCH 26 L RDW 21.2 H Plt Count 128 L Lymph % (Auto) [place] % (Auto) Lymph # (Auto) [place] # (Auto) Seg Neutrophils % Seg Neuts % (Manual) Lymphocytes % (Manual) Monocytes % (Manual) Seg Neutrophils # Seg Neutrophils # Man Lymphocytes # (Manual) Monocytes # (Manual) PT INR APTT Fibrinogen D-Dimer ABG pH POC ABG pCO2 POC ABG pO2 ABG pO2 ABG HCO3 ABG O2 Saturation ABG Base Excess ABG Hemoglobin ABG Oxyhemoglobin Oxyhemoglobin Sodium 148 H Potassium Chloride 113.7 H Carbon Dioxide 20 L BUN 57 H Creatinine 1.4 H Glucose 351 H POC Glucose 324 H Lactic Acid Calcium 8.0 L Phosphorus 2.30 L Magnesium AST ALT Alkaline Phosphatase C-Reactive Protein Total Protein Albumin Triglycerides Ur Specific [place] Urine Creatinine Crossmatch 06/17/21 06/17/21 06/17/21 11:49 17:43 21:42 WBC RBC Hgb Hct MCV MCH RDW Plt Count Lymph % (Auto) [place] % (Auto) Lymph # (Auto) [place] # (Auto) Seg Neutrophils % Seg Neuts % (Manual) Lymphocytes % (Manual) Monocytes % (Manual) Seg Neutrophils # Seg Neutrophils # Man Lymphocytes # (Manual) Monocytes # (Manual) PT INR APTT Fibrinogen D-Dimer ABG pH POC ABG pCO2 POC ABG pO2 ABG pO2 ABG HCO3 ABG O2 Saturation ABG Base Excess ABG Hemoglobin ABG Oxyhemoglobin Oxyhemoglobin Sodium Potassium Chloride Carbon Dioxide BUN Creatinine Glucose POC Glucose 305 H 307 H 286 H Lactic Acid Calcium Phosphorus Magnesium AST ALT Alkaline Phosphatase C-Reactive Protein Total Protein Albumin Triglycerides Ur Specific [place] Urine Creatinine Crossmatch 06/17/21 06/18/21 06/18/21 23:59 04:20 04:37 WBC RBC 3.53 L Hgb 9.1 L Hct 28.7 L MCV MCH 26 L RDW 21.3 H Plt Count Lymph % (Auto) [place] % (Auto) Lymph # (Auto) [place] # (Auto) Seg Neutrophils % Seg Neuts % (Manual) Lymphocytes % (Manual) Monocytes % (Manual) Seg Neutrophils # Seg Neutrophils # Man Lymphocytes # (Manual) Monocytes # (Manual) PT INR APTT Fibrinogen D-Dimer ABG pH 7.495 H POC ABG pCO2 POC ABG pO2 ABG pO2 108.3 H ABG HCO3 ABG O2 Saturation ABG Base Excess -2.1 L ABG Hemoglobin 10.0 L ABG Oxyhemoglobin Oxyhemoglobin Sodium Potassium Chloride Carbon Dioxide BUN Creatinine Glucose POC Glucose 264 H Lactic Acid Calcium Phosphorus Magnesium AST ALT Alkaline Phosphatase C-Reactive Protein Total Protein Albumin Triglycerides Ur Specific [place] Urine Creatinine Crossmatch 06/18/21 06/18/21 06/18/21 04:37 05:32 11:21 WBC RBC Hgb Hct MCV MCH RDW Plt Count Lymph % (Auto) [place] % (Auto) Lymph # (Auto) [place] # (Auto) Seg Neutrophils % Seg Neuts % (Manual) Lymphocytes % (Manual) Monocytes % (Manual) Seg Neutrophils # Seg Neutrophils # Man Lymphocytes # (Manual) Monocytes # (Manual) PT INR APTT Fibrinogen D-Dimer ABG pH POC ABG pCO2 POC ABG pO2 ABG pO2 ABG HCO3 ABG O2 Saturation ABG Base Excess ABG Hemoglobin ABG Oxyhemoglobin Oxyhemoglobin Sodium 148 H Potassium Chloride 114.7 H Carbon Dioxide BUN 59 H Creatinine 1.3 H Glucose 329 H POC Glucose 293 H 291 H Lactic Acid Calcium 8.1 L Phosphorus Magnesium AST ALT Alkaline Phosphatase C-Reactive Protein Total Protein Albumin Triglycerides Ur Specific [place] Urine Creatinine Crossmatch 06/18/21 06/18/21 06/19/21 18:21 21:46 00:15 WBC RBC Hgb Hct MCV MCH RDW Plt Count Lymph % (Auto) [place] % (Auto) Lymph # (Auto) [place] # (Auto) Seg Neutrophils % Seg Neuts % (Manual) Lymphocytes % (Manual) Monocytes % (Manual) Seg Neutrophils # Seg Neutrophils # Man Lymphocytes # (Manual) Monocytes # (Manual) PT INR APTT Fibrinogen D-Dimer ABG pH POC ABG pCO2 POC ABG pO2 ABG pO2 ABG HCO3 ABG O2 Saturation ABG Base Excess ABG Hemoglobin ABG Oxyhemoglobin Oxyhemoglobin Sodium Potassium Chloride Carbon Dioxide BUN Creatinine Glucose POC Glucose 239 H 259 H 310 H Lactic Acid Calcium Phosphorus Magnesium AST ALT Alkaline Phosphatase C-Reactive Protein Total Protein Albumin Triglycerides Ur Specific [place] Urine Creatinine Crossmatch 06/19/21 06/19/21 06/19/21 04:00 04:00 04:50 WBC RBC 3.64 L Hgb 9.1 L Hct 29.1 L MCV MCH 25 L RDW 21.5 H Plt Count Lymph % (Auto) [place] % (Auto) Lymph # (Auto) [place] # (Auto) Seg Neutrophils % Seg Neuts % (Manual) Lymphocytes % (Manual) Monocytes % (Manual) Seg Neutrophils # Seg Neutrophils # Man Lymphocytes # (Manual) Monocytes # (Manual) PT INR APTT Fibrinogen D-Dimer ABG pH POC ABG pCO2 POC ABG pO2 ABG pO2 78.9 L ABG HCO3 ABG O2 Saturation ABG Base Excess -3.2 L ABG Hemoglobin 7.6 L ABG Oxyhemoglobin Oxyhemoglobin Sodium 148 H Potassium Chloride 114.9 H Carbon Dioxide 19 L BUN 59 H Creatinine Glucose 345 H POC Glucose Lactic Acid Calcium 8.1 L Phosphorus 4.60 H D Magnesium 2.40 H AST ALT Alkaline Phosphatase C-Reactive Protein Total Protein Albumin Triglycerides Ur Specific [place] Urine Creatinine Crossmatch 06/19/21 06/19/21 06/19/21 06:28 11:11 17:20 WBC RBC Hgb Hct MCV MCH RDW Plt Count Lymph % (Auto) [place] % (Auto) Lymph # (Auto) [place] # (Auto) Seg Neutrophils % Seg Neuts % (Manual) Lymphocytes % (Manual) Monocytes % (Manual) Seg Neutrophils # Seg Neutrophils # Man Lymphocytes # (Manual) Monocytes # (Manual) PT 29.7 H INR 2.57 H APTT Fibrinogen D-Dimer ABG pH POC ABG pCO2 POC ABG pO2 ABG pO2 ABG HCO3 ABG O2 Saturation ABG Base Excess ABG Hemoglobin ABG Oxyhemoglobin Oxyhemoglobin Sodium Potassium Chloride Carbon Dioxide BUN Creatinine Glucose POC Glucose 279 H 275 H Lactic Acid Calcium Phosphorus Magnesium AST ALT Alkaline Phosphatase C-Reactive Protein Total Protein Albumin Triglycerides Ur Specific [place] Urine Creatinine Crossmatch 06/19/21 06/19/21 06/19/21 18:30 19:20 23:27 WBC RBC Hgb 8.0 L Hct 25.0 L MCV MCH RDW Plt Count Lymph % (Auto) [place] % (Auto) Lymph # (Auto) [place] # (Auto) Seg Neutrophils % Seg Neuts % (Manual) Lymphocytes % (Manual) Monocytes % (Manual) Seg Neutrophils # Seg Neutrophils # Man Lymphocytes # (Manual) Monocytes # (Manual) PT INR APTT Fibrinogen D-Dimer ABG pH POC ABG pCO2 POC ABG pO2 ABG pO2 ABG HCO3 ABG O2 Saturation ABG Base Excess ABG Hemoglobin ABG Oxyhemoglobin Oxyhemoglobin Sodium Potassium Chloride Carbon Dioxide BUN Creatinine Glucose POC Glucose 279 H 290 H Lactic Acid Calcium Phosphorus Magnesium AST ALT Alkaline Phosphatase C-Reactive Protein Total Protein Albumin Triglycerides Ur Specific [place] Urine Creatinine Crossmatch 06/20/21 06/20/21 06/20/21 00:00 04:33 04:33 WBC 22.3 H RBC 3.31 L Hgb 7.4 L 8.5 L Hct 22.5 L 26.5 L MCV MCH 26 L RDW 21.5 H Plt Count Lymph % (Auto) [place] % (Auto) Lymph # (Auto) [place] # (Auto) Seg Neutrophils % Seg Neuts % (Manual) Lymphocytes % (Manual) Monocytes % (Manual) Seg Neutrophils # Seg Neutrophils # Man Lymphocytes # (Manual) Monocytes # (Manual) PT INR APTT Fibrinogen D-Dimer ABG pH POC ABG pCO2 POC ABG pO2 ABG pO2 ABG HCO3 ABG O2 Saturation ABG Base Excess ABG Hemoglobin ABG Oxyhemoglobin Oxyhemoglobin Sodium 148 H Potassium Chloride 114.2 H Carbon Dioxide BUN 70 H Creatinine 1.4 H Glucose 313 H POC Glucose Lactic Acid Calcium 8.2 L Phosphorus Magnesium 2.50 H AST ALT Alkaline Phosphatase C-Reactive Protein Total Protein Albumin Triglycerides Ur Specific [place] Urine Creatinine Crossmatch 06/20/21 06/20/21 06/20/21 04:33 05:27 11:21 WBC RBC Hgb Hct MCV MCH RDW Plt Count Lymph % (Auto) [place] % (Auto) Lymph # (Auto) [place] # (Auto) Seg Neutrophils % Seg Neuts % (Manual) Lymphocytes % (Manual) Monocytes % (Manual) Seg Neutrophils # Seg Neutrophils # Man Lymphocytes # (Manual) Monocytes # (Manual) PT 18.3 H INR 1.37 H APTT Fibrinogen D-Dimer ABG pH POC ABG pCO2 POC ABG pO2 ABG pO2 ABG HCO3 ABG O2 Saturation ABG Base Excess ABG Hemoglobin ABG Oxyhemoglobin Oxyhemoglobin Sodium Potassium Chloride Carbon Dioxide BUN Creatinine Glucose POC Glucose 288 H 306 H Lactic Acid Calcium Phosphorus Magnesium AST ALT Alkaline Phosphatase C-Reactive Protein Total Protein Albumin Triglycerides Ur Specific [place] Urine Creatinine Crossmatch 06/20/21 06/20/21 06/20/21 12:23 15:56 18:20 WBC RBC Hgb 8.2 L 8.1 L Hct 25.9 L 25.5 L MCV MCH RDW Plt Count Lymph % (Auto) [place] % (Auto) Lymph # (Auto) [place] # (Auto) Seg Neutrophils % Seg Neuts % (Manual) Lymphocytes % (Manual) Monocytes % (Manual) Seg Neutrophils # Seg Neutrophils # Man Lymphocytes # (Manual) Monocytes # (Manual) PT INR APTT Fibrinogen D-Dimer ABG pH POC ABG pCO2 POC ABG pO2 ABG pO2 ABG HCO3 ABG O2 Saturation ABG Base Excess ABG Hemoglobin ABG Oxyhemoglobin Oxyhemoglobin Sodium Potassium Chloride Carbon Dioxide BUN Creatinine Glucose POC Glucose 293 H Lactic Acid Calcium Phosphorus Magnesium AST ALT Alkaline Phosphatase C-Reactive Protein Total Protein Albumin Triglycerides Ur Specific [place] Urine Creatinine Crossmatch 06/20/21 06/21/21 06/21/21 23:11 04:20 04:42 WBC 15.1 H RBC 2.84 L Hgb 7.3 L Hct 23.1 L MCV MCH 26 L RDW 21.5 H Plt Count Lymph % (Auto) 3.5 L [place] % (Auto) 11.7 H Lymph # (Auto) 0.5 L [place] # (Auto) 1.8 H Seg Neutrophils % 84.7 H Seg Neuts % (Manual) Lymphocytes % (Manual) Monocytes % (Manual) Seg Neutrophils # 12.8 H Seg Neutrophils # Man Lymphocytes # (Manual) Monocytes # (Manual) PT INR APTT Fibrinogen D-Dimer ABG pH POC ABG pCO2 POC ABG pO2 ABG pO2 98.5 H ABG HCO3 ABG O2 Saturation ABG Base Excess ABG Hemoglobin 7.2 L ABG Oxyhemoglobin Oxyhemoglobin Sodium Potassium Chloride Carbon Dioxide BUN Creatinine Glucose POC Glucose 206 H Lactic Acid Calcium Phosphorus Magnesium AST ALT Alkaline Phosphatase C-Reactive Protein Total Protein Albumin Triglycerides Ur Specific [place] Urine Creatinine Crossmatch 06/21/21 06/21/21 06/21/21 04:42 05:08 11:06 WBC RBC Hgb Hct MCV MCH RDW Plt Count Lymph % (Auto) [place] % (Auto) Lymph # (Auto) [place] # (Auto) Seg Neutrophils % Seg Neuts % (Manual) Lymphocytes % (Manual) Monocytes % (Manual) Seg Neutrophils # Seg Neutrophils # Man Lymphocytes # (Manual) Monocytes # (Manual) PT INR APTT Fibrinogen D-Dimer ABG pH POC ABG pCO2 POC ABG pO2 ABG pO2 ABG HCO3 ABG O2 Saturation ABG Base Excess ABG Hemoglobin ABG Oxyhemoglobin Oxyhemoglobin Sodium 151 H Potassium Chloride 117.2 H Carbon Dioxide 21 L BUN 75 H Creatinine 1.6 H Glucose 216 H POC Glucose 190 H 204 H Lactic Acid Calcium 7.9 L Phosphorus Magnesium 2.60 H AST ALT Alkaline Phosphatase C-Reactive Protein Total Protein Albumin Triglycerides 254 H Ur Specific [place] Urine Creatinine Crossmatch 06/21/21 06/21/21 06/21/21 14:00 16:42 21:52 WBC RBC Hgb 7.1 L 7.2 L Hct 22.0 L 22.1 L MCV MCH RDW Plt Count Lymph % (Auto) [place] % (Auto) Lymph # (Auto) [place] # (Auto) Seg Neutrophils % Seg Neuts % (Manual) Lymphocytes % (Manual) Monocytes % (Manual) Seg Neutrophils # Seg Neutrophils # Man Lymphocytes # (Manual) Monocytes # (Manual) PT INR APTT Fibrinogen D-Dimer ABG pH POC ABG pCO2 POC ABG pO2 ABG pO2 ABG HCO3 ABG O2 Saturation ABG Base Excess ABG Hemoglobin ABG Oxyhemoglobin Oxyhemoglobin Sodium Potassium Chloride Carbon Dioxide BUN Creatinine Glucose POC Glucose 207 H Lactic Acid Calcium Phosphorus Magnesium AST ALT Alkaline Phosphatase C-Reactive Protein Total Protein Albumin Triglycerides Ur Specific [place] Urine Creatinine Crossmatch 06/21/21 06/22/21 06/22/21 23:29 04:30 04:30 WBC 16.8 H RBC 2.93 L Hgb 7.4 L Hct 23.9 L MCV MCH 25 L RDW 21.8 H Plt Count Lymph % (Auto) [place] % (Auto) Lymph # (Auto) [place] # (Auto) Seg Neutrophils % Seg Neuts % (Manual) Lymphocytes % (Manual) Monocytes % (Manual) Seg Neutrophils # Seg Neutrophils # Man Lymphocytes # (Manual) Monocytes # (Manual) PT INR APTT Fibrinogen D-Dimer ABG pH POC ABG pCO2 POC ABG pO2 ABG pO2 ABG HCO3 ABG O2 Saturation ABG Base Excess ABG Hemoglobin ABG Oxyhemoglobin Oxyhemoglobin Sodium 151 H Potassium Chloride 118.7 H Carbon Dioxide BUN 57 H Creatinine Glucose 238 H POC Glucose 273 H Lactic Acid Calcium 8.0 L Phosphorus Magnesium 2.70 H AST ALT Alkaline Phosphatase C-Reactive Protein Total Protein Albumin Triglycerides Ur Specific [place] Urine Creatinine Crossmatch 06/22/21 06/22/21 06/22/21 05:17 11:31 14:20 WBC RBC Hgb 7.4 L Hct 22.5 L MCV MCH RDW Plt Count Lymph % (Auto) [place] % (Auto) Lymph # (Auto) [place] # (Auto) Seg Neutrophils % Seg Neuts % (Manual) Lymphocytes % (Manual) Monocytes % (Manual) Seg Neutrophils # Seg Neutrophils # Man Lymphocytes # (Manual) Monocytes # (Manual) PT INR APTT Fibrinogen D-Dimer ABG pH POC ABG pCO2 POC ABG pO2 ABG pO2 ABG HCO3 ABG O2 Saturation ABG Base Excess ABG Hemoglobin ABG Oxyhemoglobin Oxyhemoglobin Sodium Potassium Chloride Carbon Dioxide BUN Creatinine Glucose POC Glucose 214 H 214 H Lactic Acid Calcium Phosphorus Magnesium AST ALT Alkaline Phosphatase C-Reactive Protein Total Protein Albumin Triglycerides Ur Specific [place] Urine Creatinine Crossmatch 06/22/21 06/22/21 06/23/21 17:18 23:47 05:33 WBC RBC Hgb Hct MCV MCH RDW Plt Count Lymph % (Auto) [place] % (Auto) Lymph # (Auto) [place] # (Auto) Seg Neutrophils % Seg Neuts % (Manual) Lymphocytes % (Manual) Monocytes % (Manual) Seg Neutrophils # Seg Neutrophils # Man Lymphocytes # (Manual) Monocytes # (Manual) PT INR APTT Fibrinogen D-Dimer ABG pH POC ABG pCO2 POC ABG pO2 ABG pO2 ABG HCO3 ABG O2 Saturation ABG Base Excess ABG Hemoglobin ABG Oxyhemoglobin Oxyhemoglobin Sodium Potassium Chloride Carbon Dioxide BUN Creatinine Glucose POC Glucose 238 H 227 H 202 H Lactic Acid Calcium Phosphorus Magnesium AST ALT Alkaline Phosphatase C-Reactive Protein Total Protein Albumin Triglycerides Ur Specific [place] Urine Creatinine Crossmatch 06/23/21 06/23/21 06/23/21 10:04 10:04 11:06 WBC 20.3 H RBC 2.71 L Hgb 7.3 L Hct 21.8 L MCV MCH 27 L RDW 22.1 H Plt Count Lymph % (Auto) [place] % (Auto) Lymph # (Auto) [place] # (Auto) Seg Neutrophils % Seg Neuts % (Manual) Lymphocytes % (Manual) Monocytes % (Manual) Seg Neutrophils # Seg Neutrophils # Man Lymphocytes # (Manual) Monocytes # (Manual) PT INR APTT Fibrinogen D-Dimer ABG pH POC ABG pCO2 POC ABG pO2 ABG pO2 ABG HCO3 ABG O2 Saturation ABG Base Excess ABG Hemoglobin ABG Oxyhemoglobin Oxyhemoglobin Sodium 151 H Potassium 3.2 L Chloride 116.9 H Carbon Dioxide BUN 40 H Creatinine Glucose 208 H POC Glucose 204 H Lactic Acid Calcium 8.0 L Phosphorus 1.80 L D Magnesium AST ALT Alkaline Phosphatase C-Reactive Protein Total Protein Albumin Triglycerides Ur Specific [place] Urine Creatinine Crossmatch 06/23/21 06/23/21 06/24/21 16:11 23:47 04:00 WBC 16.9 H RBC 2.49 L Hgb 6.6 L Hct 20.3 L MCV MCH 26 L RDW 22.6 H Plt Count Lymph % (Auto) [place] % (Auto) Lymph # (Auto) [place] # (Auto) Seg Neutrophils % Seg Neuts % (Manual) Lymphocytes % (Manual) Monocytes % (Manual) Seg Neutrophils # Seg Neutrophils # Man Lymphocytes # (Manual) Monocytes # (Manual) PT INR APTT Fibrinogen D-Dimer ABG pH POC ABG pCO2 POC ABG pO2 ABG pO2 ABG HCO3 ABG O2 Saturation ABG Base Excess ABG Hemoglobin ABG Oxyhemoglobin Oxyhemoglobin Sodium Potassium Chloride Carbon Dioxide BUN Creatinine Glucose POC Glucose 228 H 189 H Lactic Acid Calcium Phosphorus Magnesium AST ALT Alkaline Phosphatase C-Reactive Protein Total Protein Albumin Triglycerides Ur Specific [place] Urine Creatinine Crossmatch 06/24/21 06/24/21 06/24/21 04:00 05:43 06:40 WBC RBC Hgb Hct MCV MCH RDW Plt Count Lymph % (Auto) [place] % (Auto) Lymph # (Auto) [place] # (Auto) Seg Neutrophils % Seg Neuts % (Manual) Lymphocytes % (Manual) Monocytes % (Manual) Seg Neutrophils # Seg Neutrophils # Man Lymphocytes # (Manual) Monocytes # (Manual) PT INR APTT Fibrinogen D-Dimer ABG pH POC ABG pCO2 POC ABG pO2 ABG pO2 ABG HCO3 ABG O2 Saturation ABG Base Excess ABG Hemoglobin ABG Oxyhemoglobin Oxyhemoglobin Sodium 148 H Potassium 3.2 L Chloride 115.6 H Carbon Dioxide BUN 35 H Creatinine Glucose 153 H POC Glucose 134 H Lactic Acid Calcium 7.9 L Phosphorus 2.40 L D Magnesium AST ALT Alkaline Phosphatase C-Reactive Protein Total Protein Albumin Triglycerides Ur Specific [place] Urine Creatinine Crossmatch See Detail 06/24/21 06/24/21 06/24/21 11:08 16:47 21:49 WBC RBC Hgb Hct MCV MCH RDW Plt Count Lymph % (Auto) [place] % (Auto) Lymph # (Auto) [place] # (Auto) Seg Neutrophils % Seg Neuts % (Manual) Lymphocytes % (Manual) Monocytes % (Manual) Seg Neutrophils # Seg Neutrophils # Man Lymphocytes # (Manual) Monocytes # (Manual) PT INR APTT Fibrinogen D-Dimer ABG pH POC ABG pCO2 POC ABG pO2 ABG pO2 ABG HCO3 ABG O2 Saturation ABG Base Excess ABG Hemoglobin ABG Oxyhemoglobin Oxyhemoglobin Sodium Potassium Chloride Carbon Dioxide BUN Creatinine Glucose POC Glucose 153 H 201 H 132 H Lactic Acid Calcium Phosphorus Magnesium AST ALT Alkaline Phosphatase C-Reactive Protein Total Protein Albumin Triglycerides Ur Specific [place] Urine Creatinine Crossmatch 06/24/21 06/25/21 06/25/21 23:24 05:30 09:00 WBC RBC Hgb 8.3 L Hct 27.0 L MCV MCH RDW Plt Count Lymph % (Auto) [place] % (Auto) Lymph # (Auto) [place] # (Auto) Seg Neutrophils % Seg Neuts % (Manual) Lymphocytes % (Manual) Monocytes % (Manual) Seg Neutrophils # Seg Neutrophils # Man Lymphocytes # (Manual) Monocytes # (Manual) PT INR APTT Fibrinogen D-Dimer ABG pH POC ABG pCO2 POC ABG pO2 ABG pO2 ABG HCO3 ABG O2 Saturation ABG Base Excess ABG Hemoglobin ABG Oxyhemoglobin Oxyhemoglobin Sodium Potassium Chloride Carbon Dioxide BUN Creatinine Glucose POC Glucose 170 H 151 H Lactic Acid Calcium Phosphorus Magnesium AST ALT Alkaline Phosphatase C-Reactive Protein Total Protein Albumin Triglycerides Ur Specific [place] Urine Creatinine Crossmatch 06/25/21 06/25/21 06/25/21 11:29 14:24 16:48 WBC RBC Hgb 8.5 L Hct 27.5 L MCV MCH RDW Plt Count Lymph % (Auto) [place] % (Auto) Lymph # (Auto) [place] # (Auto) Seg Neutrophils % Seg Neuts % (Manual) Lymphocytes % (Manual) Monocytes % (Manual) Seg Neutrophils # Seg Neutrophils # Man Lymphocytes # (Manual) Monocytes # (Manual) PT INR APTT Fibrinogen D-Dimer ABG pH POC ABG pCO2 POC ABG pO2 ABG pO2 ABG HCO3 ABG O2 Saturation ABG Base Excess ABG Hemoglobin ABG Oxyhemoglobin Oxyhemoglobin Sodium Potassium Chloride Carbon Dioxide BUN Creatinine Glucose POC Glucose 189 H 224 H Lactic Acid Calcium Phosphorus Magnesium AST ALT Alkaline Phosphatase C-Reactive Protein Total Protein Albumin Triglycerides Ur Specific [place] Urine Creatinine Crossmatch 06/25/21 06/25/21 06/25/21 23:39 Unknown Unknown WBC 16.5 H RBC 2.90 L Hgb 8.0 L Hct 23.8 L MCV MCH RDW 22.8 H Plt Count Lymph % (Auto) [place] % (Auto) Lymph # (Auto) [place] # (Auto) Seg Neutrophils % Seg Neuts % (Manual) Lymphocytes % (Manual) Monocytes % (Manual) Seg Neutrophils # Seg Neutrophils # Man Lymphocytes # (Manual) Monocytes # (Manual) PT INR APTT Fibrinogen D-Dimer ABG pH POC ABG pCO2 POC ABG pO2 ABG pO2 ABG HCO3 ABG O2 Saturation ABG Base Excess ABG Hemoglobin ABG Oxyhemoglobin Oxyhemoglobin Sodium 149 H Potassium Chloride 115.6 H Carbon Dioxide BUN 28 H Creatinine Glucose 157 H POC Glucose 187 H Lactic Acid Calcium 8.0 L Phosphorus Magnesium AST ALT Alkaline Phosphatase C-Reactive Protein Total Protein Albumin Triglycerides Ur Specific [place] Urine Creatinine Crossmatch 06/26/21 06/26/21 06/26/21 05:22 05:29 05:29 WBC 16.2 H RBC 3.03 L Hgb 8.0 L Hct 25.1 L MCV MCH 26 L RDW 23.2 H Plt Count Lymph % (Auto) [place] % (Auto) Lymph # (Auto) [place] # (Auto) Seg Neutrophils % Seg Neuts % (Manual) Lymphocytes % (Manual) Monocytes % (Manual) Seg Neutrophils # Seg Neutrophils # Man Lymphocytes # (Manual) Monocytes # (Manual) PT INR APTT Fibrinogen D-Dimer ABG pH POC ABG pCO2 POC ABG pO2 ABG pO2 ABG HCO3 ABG O2 Saturation ABG Base Excess ABG Hemoglobin ABG Oxyhemoglobin Oxyhemoglobin Sodium 150 H Potassium Chloride 114.8 H Carbon Dioxide BUN 29 H Creatinine Glucose 229 H POC Glucose 211 H Lactic Acid Calcium 8.2 L Phosphorus Magnesium AST ALT Alkaline Phosphatase C-Reactive Protein Total Protein Albumin Triglycerides Ur Specific [place] Urine Creatinine Crossmatch 06/26/21 06/26/21 06/26/21 11:05 15:59 22:00 WBC RBC Hgb Hct MCV MCH RDW Plt Count Lymph % (Auto) [place] % (Auto) Lymph # (Auto) [place] # (Auto) Seg Neutrophils % Seg Neuts % (Manual) Lymphocytes % (Manual) Monocytes % (Manual) Seg Neutrophils # Seg Neutrophils # Man Lymphocytes # (Manual) Monocytes # (Manual) PT INR APTT Fibrinogen D-Dimer ABG pH POC ABG pCO2 POC ABG pO2 ABG pO2 ABG HCO3 ABG O2 Saturation ABG Base Excess ABG Hemoglobin ABG Oxyhemoglobin Oxyhemoglobin Sodium Potassium Chloride Carbon Dioxide BUN Creatinine Glucose POC Glucose 213 H 222 H 161 H Lactic Acid Calcium Phosphorus Magnesium AST ALT Alkaline Phosphatase C-Reactive Protein Total Protein Albumin Triglycerides Ur Specific [place] Urine Creatinine Crossmatch 06/26/21 06/27/21 06/27/21 23:24 04:15 04:15 WBC 14.3 H RBC 2.96 L Hgb 8.1 L Hct 24.6 L MCV MCH 27 L RDW 23.0 H Plt Count Lymph % (Auto) [place] % (Auto) Lymph # (Auto) [place] # (Auto) Seg Neutrophils % Seg Neuts % (Manual) Lymphocytes % (Manual) Monocytes % (Manual) Seg Neutrophils # Seg Neutrophils # Man Lymphocytes # (Manual) Monocytes # (Manual) PT INR APTT Fibrinogen D-Dimer ABG pH POC ABG pCO2 POC ABG pO2 ABG pO2 ABG HCO3 ABG O2 Saturation ABG Base Excess ABG Hemoglobin ABG Oxyhemoglobin Oxyhemoglobin Sodium 150 H Potassium Chloride 113.8 H Carbon Dioxide BUN 26 H Creatinine Glucose 246 H POC Glucose 164 H Lactic Acid Calcium 7.8 L Phosphorus Magnesium AST ALT Alkaline Phosphatase C-Reactive Protein Total Protein Albumin Triglycerides Ur Specific [place] Urine Creatinine Crossmatch 06/27/21 06/27/21 06/27/21 05:44 11:07 16:06 WBC RBC Hgb Hct MCV MCH RDW Plt Count Lymph % (Auto) [place] % (Auto) Lymph # (Auto) [place] # (Auto) Seg Neutrophils % Seg Neuts % (Manual) Lymphocytes % (Manual) Monocytes % (Manual) Seg Neutrophils # Seg Neutrophils # Man Lymphocytes # (Manual) Monocytes # (Manual) PT INR APTT Fibrinogen D-Dimer ABG pH POC ABG pCO2 POC ABG pO2 ABG pO2 ABG HCO3 ABG O2 Saturation ABG Base Excess ABG Hemoglobin ABG Oxyhemoglobin Oxyhemoglobin Sodium Potassium Chloride Carbon Dioxide BUN Creatinine Glucose POC Glucose 226 H 204 H 224 H Lactic Acid Calcium Phosphorus Magnesium AST ALT Alkaline Phosphatase C-Reactive Protein Total Protein Albumin Triglycerides Ur Specific [place] Urine Creatinine Crossmatch 06/27/21 06/28/21 06/28/21 23:49 04:00 04:00 WBC 15.4 H RBC 3.05 L Hgb 8.2 L Hct 25.0 L MCV MCH 27 L RDW 22.6 H Plt Count Lymph % (Auto) [place] % (Auto) Lymph # (Auto) [place] # (Auto) Seg Neutrophils % Seg Neuts % (Manual) Lymphocytes % (Manual) Monocytes % (Manual) Seg Neutrophils # Seg Neutrophils # Man Lymphocytes # (Manual) Monocytes # (Manual) PT INR APTT Fibrinogen D-Dimer ABG pH POC ABG pCO2 POC ABG pO2 ABG pO2 ABG HCO3 ABG O2 Saturation ABG Base Excess ABG Hemoglobin ABG Oxyhemoglobin Oxyhemoglobin Sodium 152 H Potassium 3.0 L Chloride 114.9 H Carbon Dioxide BUN 24 H Creatinine Glucose 158 H POC Glucose 195 H Lactic Acid Calcium 8.1 L Phosphorus Magnesium AST ALT Alkaline Phosphatase C-Reactive Protein Total Protein Albumin Triglycerides Ur Specific [place] Urine Creatinine Crossmatch 06/28/21 06/28/21 06/28/21 05:05 11:47 17:21 WBC RBC Hgb Hct MCV MCH RDW Plt Count Lymph % (Auto) [place] % (Auto) Lymph # (Auto) [place] # (Auto) Seg Neutrophils % Seg Neuts % (Manual) Lymphocytes % (Manual) Monocytes % (Manual) Seg Neutrophils # Seg Neutrophils # Man Lymphocytes # (Manual) Monocytes # (Manual) PT INR APTT Fibrinogen D-Dimer ABG pH POC ABG pCO2 POC ABG pO2 ABG pO2 ABG HCO3 ABG O2 Saturation ABG Base Excess ABG Hemoglobin ABG Oxyhemoglobin Oxyhemoglobin Sodium Potassium Chloride Carbon Dioxide BUN Creatinine Glucose POC Glucose 121 H 164 H 166 H Lactic Acid Calcium Phosphorus Magnesium AST ALT Alkaline Phosphatase C-Reactive Protein Total Protein Albumin Triglycerides Ur Specific [place] Urine Creatinine Crossmatch 06/28/21 06/28/21 06/29/21 18:14 21:54 00:55 WBC RBC Hgb Hct MCV MCH RDW Plt Count Lymph % (Auto) [place] % (Auto) Lymph # (Auto) [place] # (Auto) Seg Neutrophils % Seg Neuts % (Manual) Lymphocytes % (Manual) Monocytes % (Manual) Seg Neutrophils # Seg Neutrophils # Man Lymphocytes # (Manual) Monocytes # (Manual) PT INR APTT Fibrinogen D-Dimer ABG pH POC ABG pCO2 POC ABG pO2 ABG pO2 ABG HCO3 ABG O2 Saturation ABG Base Excess ABG Hemoglobin ABG Oxyhemoglobin Oxyhemoglobin Sodium Potassium Chloride Carbon Dioxide BUN Creatinine Glucose POC Glucose 150 H 148 H 176 H Lactic Acid Calcium Phosphorus Magnesium AST ALT Alkaline Phosphatase C-Reactive Protein Total Protein Albumin Triglycerides Ur Specific [place] Urine Creatinine Crossmatch 06/29/21 06/29/21 06/29/21 04:00 04:00 05:20 WBC 15.3 H RBC 3.04 L Hgb 8.0 L Hct 25.0 L MCV MCH 26 L RDW 22.3 H Plt Count Lymph % (Auto) [place] % (Auto) Lymph # (Auto) [place] # (Auto) Seg Neutrophils % Seg Neuts % (Manual) Lymphocytes % (Manual) Monocytes % (Manual) Seg Neutrophils # Seg Neutrophils # Man Lymphocytes # (Manual) Monocytes # (Manual) PT INR APTT Fibrinogen D-Dimer ABG pH POC ABG pCO2 POC ABG pO2 ABG pO2 ABG HCO3 ABG O2 Saturation ABG Base Excess ABG Hemoglobin ABG Oxyhemoglobin Oxyhemoglobin Sodium Potassium 3.1 L Chloride 108.7 H Carbon Dioxide BUN 20 H Creatinine Glucose 194 H POC Glucose 185 H Lactic Acid Calcium 8.0 L Phosphorus Magnesium AST ALT Alkaline Phosphatase C-Reactive Protein Total Protein Albumin Triglycerides Ur Specific [place] Urine Creatinine Crossmatch 06/29/21 06/29/21 06/30/21 12:18 17:20 00:49 WBC RBC Hgb Hct MCV MCH RDW Plt Count Lymph % (Auto) [place] % (Auto) Lymph # (Auto) [place] # (Auto) Seg Neutrophils % Seg Neuts % (Manual) Lymphocytes % (Manual) Monocytes % (Manual) Seg Neutrophils # Seg Neutrophils # Man Lymphocytes # (Manual) Monocytes # (Manual) PT INR APTT Fibrinogen D-Dimer ABG pH POC ABG pCO2 POC ABG pO2 ABG pO2 ABG HCO3 ABG O2 Saturation ABG Base Excess ABG Hemoglobin ABG Oxyhemoglobin Oxyhemoglobin Sodium Potassium Chloride Carbon Dioxide BUN Creatinine Glucose POC Glucose 135 H 185 H 156 H Lactic Acid Calcium Phosphorus Magnesium AST ALT Alkaline Phosphatase C-Reactive Protein Total Protein Albumin Triglycerides Ur Specific [place] Urine Creatinine Crossmatch 06/30/21 06/30/21 06/30/21 04:25 04:25 08:14 WBC 13.0 H RBC 3.19 L Hgb 8.2 L Hct 26.2 L MCV MCH 26 L RDW 22.3 H Plt Count Lymph % (Auto) [place] % (Auto) Lymph # (Auto) [place] # (Auto) Seg Neutrophils % Seg Neuts % (Manual) 81.0 H Lymphocytes % (Manual) 10.0 L Monocytes % (Manual) 8.0 H Seg Neutrophils # Seg Neutrophils # Man 10.5 H Lymphocytes # (Manual) Monocytes # (Manual) 1.0 H PT INR APTT Fibrinogen D-Dimer ABG pH POC ABG pCO2 POC ABG pO2 ABG pO2 ABG HCO3 ABG O2 Saturation ABG Base Excess ABG Hemoglobin ABG Oxyhemoglobin Oxyhemoglobin Sodium Potassium 3.0 L Chloride Carbon Dioxide BUN 20 H Creatinine Glucose 104 H POC Glucose 119 H Lactic Acid Calcium 8.3 L Phosphorus Magnesium AST ALT Alkaline Phosphatase C-Reactive Protein Total Protein Albumin Triglycerides Ur Specific [place] Urine Creatinine Crossmatch 06/30/21 06/30/21 06/30/21 11:36 16:24 22:44 WBC RBC Hgb Hct MCV MCH RDW Plt Count Lymph % (Auto) [place] % (Auto) Lymph # (Auto) [place] # (Auto) Seg Neutrophils % Seg Neuts % (Manual) Lymphocytes % (Manual) Monocytes % (Manual) Seg Neutrophils # Seg Neutrophils # Man Lymphocytes # (Manual) Monocytes # (Manual) PT INR APTT Fibrinogen D-Dimer ABG pH POC ABG pCO2 POC ABG pO2 ABG pO2 ABG HCO3 ABG O2 Saturation ABG Base Excess ABG Hemoglobin ABG Oxyhemoglobin Oxyhemoglobin Sodium Potassium Chloride Carbon Dioxide BUN Creatinine Glucose POC Glucose 154 H 208 H 174 H Lactic Acid Calcium Phosphorus Magnesium AST ALT Alkaline Phosphatase C-Reactive Protein Total Protein Albumin Triglycerides Ur Specific [place] Urine Creatinine Crossmatch 07/01/21 07/01/21 07/01/21 05:29 05:29 05:54 WBC 11.9 H RBC 3.00 L Hgb 8.1 L Hct 24.4 L MCV MCH 27 L RDW 21.7 H Plt Count Lymph % (Auto) [place] % (Auto) Lymph # (Auto) [place] # (Auto) Seg Neutrophils % Seg Neuts % (Manual) Lymphocytes % (Manual) Monocytes % (Manual) Seg Neutrophils # Seg Neutrophils # Man Lymphocytes # (Manual) Monocytes # (Manual) PT INR APTT Fibrinogen D-Dimer ABG pH POC ABG pCO2 POC ABG pO2 ABG pO2 ABG HCO3 ABG O2 Saturation ABG Base Excess ABG Hemoglobin ABG Oxyhemoglobin Oxyhemoglobin Sodium Potassium Chloride Carbon Dioxide BUN Creatinine Glucose 177 H POC Glucose 170 H Lactic Acid Calcium Phosphorus Magnesium AST ALT Alkaline Phosphatase C-Reactive Protein Total Protein Albumin Triglycerides Ur Specific [place] Urine Creatinine Crossmatch 07/01/21 07/02/21 07/02/21 10:54 05:05 10:18 WBC RBC Hgb Hct MCV MCH RDW Plt Count Lymph % (Auto) [place] % (Auto) Lymph # (Auto) [place] # (Auto) Seg Neutrophils % Seg Neuts % (Manual) Lymphocytes % (Manual) Monocytes % (Manual) Seg Neutrophils # Seg Neutrophils # Man Lymphocytes # (Manual) Monocytes # (Manual) PT INR APTT Fibrinogen D-Dimer ABG pH 7.488 H POC ABG pCO2 POC ABG pO2 ABG pO2 97.2 H ABG HCO3 27.1 H ABG O2 Saturation ABG Base Excess 3.5 H ABG Hemoglobin 7.9 L ABG Oxyhemoglobin Oxyhemoglobin Sodium Potassium Chloride Carbon Dioxide BUN Creatinine Glucose POC Glucose 184 H 182 H Lactic Acid Calcium Phosphorus Magnesium AST ALT Alkaline Phosphatase C-Reactive Protein Total Protein Albumin Triglycerides Ur Specific [place] Urine Creatinine Crossmatch 07/02/21 07/02/21 07/02/21 12:14 16:18 22:27 WBC RBC Hgb Hct MCV MCH RDW Plt Count Lymph % (Auto) [place] % (Auto) Lymph # (Auto) [place] # (Auto) Seg Neutrophils % Seg Neuts % (Manual) Lymphocytes % (Manual) Monocytes % (Manual) Seg Neutrophils # Seg Neutrophils # Man Lymphocytes # (Manual) Monocytes # (Manual) PT INR APTT Fibrinogen D-Dimer ABG pH 7.199 L* POC ABG pCO2 POC ABG pO2 ABG pO2 104.5 H ABG HCO3 30.3 H ABG O2 Saturation ABG Base Excess ABG Hemoglobin 9.8 L ABG Oxyhemoglobin Oxyhemoglobin 94.6 L Sodium Potassium Chloride Carbon Dioxide BUN Creatinine Glucose POC Glucose 184 H 194 H Lactic Acid Calcium Phosphorus Magnesium AST ALT Alkaline Phosphatase C-Reactive Protein Total Protein Albumin Triglycerides Ur Specific [place] Urine Creatinine Crossmatch 07/03/21 07/03/21 07/03/21 09:47 10:44 11:24 WBC RBC 3.01 L Hgb 8.3 L Hct 24.3 L MCV MCH RDW 21.7 H Plt Count Lymph % (Auto) 8.4 L [place] % (Auto) Lymph # (Auto) 0.8 L [place] # (Auto) Seg Neutrophils % 80.6 H Seg Neuts % (Manual) Lymphocytes % (Manual) Monocytes % (Manual) Seg Neutrophils # Seg Neutrophils # Man Lymphocytes # (Manual) Monocytes # (Manual) PT INR APTT Fibrinogen D-Dimer ABG pH POC ABG pCO2 POC ABG pO2 ABG pO2 ABG HCO3 ABG O2 Saturation ABG Base Excess ABG Hemoglobin ABG Oxyhemoglobin Oxyhemoglobin Sodium Potassium 3.0 L Chloride Carbon Dioxide BUN Creatinine Glucose 200 H POC Glucose 180 H Lactic Acid Calcium 8.3 L Phosphorus Magnesium AST ALT Alkaline Phosphatase C-Reactive Protein Total Protein Albumin Triglycerides Ur Specific [place] Urine Creatinine Crossmatch 07/03/21 07/03/21 07/03/21 16:34 22:14 22:15 WBC RBC Hgb Hct MCV MCH RDW Plt Count Lymph % (Auto) [place] % (Auto) Lymph # (Auto) [place] # (Auto) Seg Neutrophils % Seg Neuts % (Manual) Lymphocytes % (Manual) Monocytes % (Manual) Seg Neutrophils # Seg Neutrophils # Man Lymphocytes # (Manual) Monocytes # (Manual) PT INR APTT Fibrinogen D-Dimer ABG pH POC ABG pCO2 POC ABG pO2 ABG pO2 ABG HCO3 ABG O2 Saturation ABG Base Excess ABG Hemoglobin ABG Oxyhemoglobin Oxyhemoglobin Sodium Potassium Chloride Carbon Dioxide BUN Creatinine Glucose POC Glucose 165 H 174 H 180 H Lactic Acid Calcium Phosphorus Magnesium AST ALT Alkaline Phosphatase C-Reactive Protein Total Protein Albumin Triglycerides Ur Specific [place] Urine Creatinine Crossmatch 07/04/21 07/04/21 07/04/21 00:28 01:44 05:07 WBC RBC Hgb Hct MCV MCH RDW Plt Count Lymph % (Auto) [place] % (Auto) Lymph # (Auto) [place] # (Auto) Seg Neutrophils % Seg Neuts % (Manual) Lymphocytes % (Manual) Monocytes % (Manual) Seg Neutrophils # Seg Neutrophils # Man Lymphocytes # (Manual) Monocytes # (Manual) PT INR APTT Fibrinogen D-Dimer ABG pH POC ABG pCO2 POC ABG pO2 ABG pO2 107.7 H ABG HCO3 26.7 H ABG O2 Saturation ABG Base Excess ABG Hemoglobin 7.5 L ABG Oxyhemoglobin Oxyhemoglobin Sodium Potassium Chloride Carbon Dioxide BUN Creatinine Glucose POC Glucose 246 H 179 H Lactic Acid Calcium Phosphorus Magnesium AST ALT Alkaline Phosphatase C-Reactive Protein Total Protein Albumin Triglycerides Ur Specific [place] Urine Creatinine Crossmatch 07/04/21 07/04/21 07/04/21 05:13 05:13 10:52 WBC RBC 3.12 L Hgb 8.5 L Hct 25.2 L MCV MCH 27 L RDW 21.3 H Plt Count Lymph % (Auto) 6.1 L [place] % (Auto) Lymph # (Auto) 0.6 L [place] # (Auto) Seg Neutrophils % 85.0 H Seg Neuts % (Manual) Lymphocytes % (Manual) Monocytes % (Manual) Seg Neutrophils # 8.0 H Seg Neutrophils # Man Lymphocytes # (Manual) Monocytes # (Manual) PT INR APTT Fibrinogen D-Dimer ABG pH POC ABG pCO2 POC ABG pO2 ABG pO2 ABG HCO3 ABG O2 Saturation ABG Base Excess ABG Hemoglobin ABG Oxyhemoglobin Oxyhemoglobin Sodium Potassium 3.4 L Chloride Carbon Dioxide BUN Creatinine Glucose 205 H POC Glucose 146 H Lactic Acid Calcium Phosphorus Magnesium AST ALT Alkaline Phosphatase C-Reactive Protein Total Protein Albumin Triglycerides Ur Specific [place] Urine Creatinine Crossmatch 07/04/21 07/04/21 07/05/21 16:22 23:52 04:38 WBC RBC Hgb Hct MCV MCH RDW Plt Count Lymph % (Auto) [place] % (Auto) Lymph # (Auto) [place] # (Auto) Seg Neutrophils % Seg Neuts % (Manual) Lymphocytes % (Manual) Monocytes % (Manual) Seg Neutrophils # Seg Neutrophils # Man Lymphocytes # (Manual) Monocytes # (Manual) PT INR APTT Fibrinogen D-Dimer ABG pH POC ABG pCO2 POC ABG pO2 ABG pO2 ABG HCO3 ABG O2 Saturation ABG Base Excess ABG Hemoglobin ABG Oxyhemoglobin Oxyhemoglobin Sodium Potassium 3.0 L Chloride Carbon Dioxide BUN 18 H Creatinine Glucose 174 H POC Glucose 154 H 193 H Lactic Acid Calcium Phosphorus 2.20 L Magnesium AST ALT Alkaline Phosphatase C-Reactive Protein Total Protein Albumin Triglycerides Ur Specific [place] Urine Creatinine Crossmatch 07/05/21 07/05/21 07/05/21 04:38 05:15 12:35 WBC RBC 2.95 L Hgb 7.8 L Hct 23.9 L MCV MCH 27 L RDW 21.0 H Plt Count Lymph % (Auto) [place] % (Auto) Lymph # (Auto) [place] # (Auto) Seg Neutrophils % Seg Neuts % (Manual) Lymphocytes % (Manual) Monocytes % (Manual) Seg Neutrophils # Seg Neutrophils # Man Lymphocytes # (Manual) Monocytes # (Manual) PT INR APTT Fibrinogen D-Dimer ABG pH POC ABG pCO2 POC ABG pO2 ABG pO2 ABG HCO3 ABG O2 Saturation ABG Base Excess ABG Hemoglobin ABG Oxyhemoglobin Oxyhemoglobin Sodium Potassium Chloride Carbon Dioxide BUN Creatinine Glucose POC Glucose 163 H 121 H Lactic Acid Calcium Phosphorus Magnesium AST ALT Alkaline Phosphatase C-Reactive Protein Total Protein Albumin Triglycerides Ur Specific [place] Urine Creatinine Crossmatch 07/05/21 07/05/21 07/05/21 18:27 21:05 23:11 WBC RBC Hgb Hct MCV MCH RDW Plt Count Lymph % (Auto) [place] % (Auto) Lymph # (Auto) [place] # (Auto) Seg Neutrophils % Seg Neuts % (Manual) Lymphocytes % (Manual) Monocytes % (Manual) Seg Neutrophils # Seg Neutrophils # Man Lymphocytes # (Manual) Monocytes # (Manual) PT INR APTT Fibrinogen D-Dimer ABG pH POC ABG pCO2 POC ABG pO2 ABG pO2 ABG HCO3 ABG O2 Saturation ABG Base Excess ABG Hemoglobin ABG Oxyhemoglobin Oxyhemoglobin Sodium Potassium Chloride Carbon Dioxide BUN Creatinine Glucose POC Glucose 183 H 170 H 184 H Lactic Acid Calcium Phosphorus Magnesium AST ALT Alkaline Phosphatase C-Reactive Protein Total Protein Albumin Triglycerides Ur Specific [place] Urine Creatinine Crossmatch 07/06/21 07/06/21 07/06/21 04:39 05:13 12:12 WBC RBC Hgb Hct MCV MCH RDW Plt Count Lymph % (Auto) [place] % (Auto) Lymph # (Auto) [place] # (Auto) Seg Neutrophils % Seg Neuts % (Manual) Lymphocytes % (Manual) Monocytes % (Manual) Seg Neutrophils # Seg Neutrophils # Man Lymphocytes # (Manual) Monocytes # (Manual) PT INR APTT Fibrinogen D-Dimer ABG pH POC ABG pCO2 POC ABG pO2 ABG pO2 ABG HCO3 ABG O2 Saturation ABG Base Excess ABG Hemoglobin ABG Oxyhemoglobin Oxyhemoglobin Sodium Potassium 3.4 L Chloride Carbon Dioxide BUN Creatinine Glucose 180 H POC Glucose 183 H 153 H Lactic Acid Calcium Phosphorus Magnesium AST ALT Alkaline Phosphatase C-Reactive Protein Total Protein Albumin Triglycerides Ur Specific [place] Urine Creatinine Crossmatch 07/06/21 07/06/21 07/07/21 17:30 21:44 00:22 WBC RBC Hgb Hct MCV MCH RDW Plt Count Lymph % (Auto) [place] % (Auto) Lymph # (Auto) [place] # (Auto) Seg Neutrophils % Seg Neuts % (Manual) Lymphocytes % (Manual) Monocytes % (Manual) Seg Neutrophils # Seg Neutrophils # Man Lymphocytes # (Manual) Monocytes # (Manual) PT INR APTT Fibrinogen D-Dimer ABG pH POC ABG pCO2 POC ABG pO2 ABG pO2 ABG HCO3 ABG O2 Saturation ABG Base Excess ABG Hemoglobin ABG Oxyhemoglobin Oxyhemoglobin Sodium Potassium Chloride Carbon Dioxide BUN Creatinine Glucose POC Glucose 166 H 155 H 188 H Lactic Acid Calcium Phosphorus Magnesium AST ALT Alkaline Phosphatase C-Reactive Protein Total Protein Albumin Triglycerides Ur Specific [place] Urine Creatinine Crossmatch 07/07/21 07/07/21 07/07/21 04:10 05:48 07:39 WBC RBC Hgb Hct MCV MCH RDW Plt Count Lymph % (Auto) [place] % (Auto) Lymph # (Auto) [place] # (Auto) Seg Neutrophils % Seg Neuts % (Manual) Lymphocytes % (Manual) Monocytes % (Manual) Seg Neutrophils # Seg Neutrophils # Man Lymphocytes # (Manual) Monocytes # (Manual) PT INR APTT Fibrinogen D-Dimer ABG pH POC ABG pCO2 POC ABG pO2 ABG pO2 ABG HCO3 ABG O2 Saturation ABG Base Excess ABG Hemoglobin ABG Oxyhemoglobin Oxyhemoglobin Sodium Potassium 3.1 L Chloride Carbon Dioxide BUN Creatinine Glucose 138 H POC Glucose 141 H 147 H Lactic Acid Calcium Phosphorus 2.40 L Magnesium AST ALT Alkaline Phosphatase C-Reactive Protein Total Protein Albumin Triglycerides Ur Specific [place] Urine Creatinine Crossmatch 07/07/21 07/07/21 07/07/21 11:17 16:06 23:58 WBC RBC Hgb Hct MCV MCH RDW Plt Count Lymph % (Auto) [place] % (Auto) Lymph # (Auto) [place] # (Auto) Seg Neutrophils % Seg Neuts % (Manual) Lymphocytes % (Manual) Monocytes % (Manual) Seg Neutrophils # Seg Neutrophils # Man Lymphocytes # (Manual) Monocytes # (Manual) PT INR APTT Fibrinogen D-Dimer ABG pH POC ABG pCO2 POC ABG pO2 ABG pO2 ABG HCO3 ABG O2 Saturation ABG Base Excess ABG Hemoglobin ABG Oxyhemoglobin Oxyhemoglobin Sodium Potassium Chloride Carbon Dioxide BUN Creatinine Glucose POC Glucose 161 H 173 H 198 H Lactic Acid Calcium Phosphorus Magnesium AST ALT Alkaline Phosphatase C-Reactive Protein Total Protein Albumin Triglycerides Ur Specific [place] Urine Creatinine Crossmatch 07/08/21 07/08/21 07/08/21 04:20 04:20 06:12 WBC RBC 3.16 L Hgb 8.3 L Hct 25.1 L MCV MCH 26 L RDW 21.0 H Plt Count Lymph % (Auto) [place] % (Auto) Lymph # (Auto) [place] # (Auto) Seg Neutrophils % Seg Neuts % (Manual) Lymphocytes % (Manual) Monocytes % (Manual) Seg Neutrophils # Seg Neutrophils # Man Lymphocytes # (Manual) Monocytes # (Manual) PT INR APTT Fibrinogen D-Dimer ABG pH POC ABG pCO2 POC ABG pO2 ABG pO2 ABG HCO3 ABG O2 Saturation ABG Base Excess ABG Hemoglobin ABG Oxyhemoglobin Oxyhemoglobin Sodium Potassium Chloride Carbon Dioxide BUN Creatinine Glucose 183 H POC Glucose 189 H Lactic Acid Calcium Phosphorus Magnesium AST ALT Alkaline Phosphatase C-Reactive Protein Total Protein Albumin Triglycerides Ur Specific [place] Urine Creatinine Crossmatch 07/08/21 07/08/21 07/08/21 11:33 18:04 21:42 WBC RBC Hgb Hct MCV MCH RDW Plt Count Lymph % (Auto) [place] % (Auto) Lymph # (Auto) [place] # (Auto) Seg Neutrophils % Seg Neuts % (Manual) Lymphocytes % (Manual) Monocytes % (Manual) Seg Neutrophils # Seg Neutrophils # Man Lymphocytes # (Manual) Monocytes # (Manual) PT INR APTT Fibrinogen D-Dimer ABG pH POC ABG pCO2 POC ABG pO2 ABG pO2 ABG HCO3 ABG O2 Saturation ABG Base Excess ABG Hemoglobin ABG Oxyhemoglobin Oxyhemoglobin Sodium Potassium Chloride Carbon Dioxide BUN Creatinine Glucose POC Glucose 161 H 128 H 160 H Lactic Acid Calcium Phosphorus Magnesium AST ALT Alkaline Phosphatase C-Reactive Protein Total Protein Albumin Triglycerides Ur Specific [place] Urine Creatinine Crossmatch 07/09/21 07/09/21 07/09/21 06:03 06:10 06:10 WBC RBC 2.96 L Hgb 7.8 L Hct 23.5 L MCV MCH 27 L RDW 20.9 H Plt Count Lymph % (Auto) [place] % (Auto) Lymph # (Auto) [place] # (Auto) Seg Neutrophils % Seg Neuts % (Manual) Lymphocytes % (Manual) Monocytes % (Manual) Seg Neutrophils # Seg Neutrophils # Man Lymphocytes # (Manual) Monocytes # (Manual) PT INR APTT Fibrinogen D-Dimer ABG pH POC ABG pCO2 POC ABG pO2 ABG pO2 ABG HCO3 ABG O2 Saturation ABG Base Excess ABG Hemoglobin ABG Oxyhemoglobin Oxyhemoglobin Sodium Potassium Chloride Carbon Dioxide BUN Creatinine Glucose 168 H POC Glucose 174 H Lactic Acid Calcium 8.2 L Phosphorus Magnesium AST ALT Alkaline Phosphatase C-Reactive Protein Total Protein Albumin Triglycerides Ur Specific [place] Urine Creatinine Crossmatch
--- NOTE | 2021-07-09 09:50 | Progress Note ---
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 07/09/21: Transfer to IMCU. PT/OT. Speech to see again now with smaller caliber trach. Placement. 07/08/21: Continue ICU. Once trach downsized may consider transition to step down if ICU bed is needed. Hopeful placement soon. PT/OT. 07/05/21: Continue ICU/IMCU status. Patient is stable for speech as well as PT/OT. Please reconsult them. [facility] has been denied for LTACH so will attempt to get patient into snf facility. Will speak with surgery about possibly downsizing trach to 8. Speech has no equipment to fit 10. Do not feel comfortable doing it myself or asking RT to change out to smaller trach. 07/04/21: Will keep in ICU/IMCU for now. Treat pain in back with [place] and discontinue Tylenol. Follow up with CM on placement. 07/03/21: Continue current level of care. CM working on placement. 07/02/21: ABG now. Patient did have low grade temp earlier today and still has a white count despite being off steroids. It is trending down. Reviewed ID note and they did mention of persistent consider ct of neck. May need to do this. If done, please scan head as well. Will continue to follow. Spoke with RT about obtaining ABG. 07/01/21: Continue T-piece. Follow up speech recs. Follow up electrolytes. PT/OT. Stable for transfer when bed available 06/30/21: Aggressive replacement of electrolytes. Will repeat chemistry tonight around 8. please call for orders as we would like to keep her K at 4 and Mag at 2. Chemistry in the am. Stable for transfer to telemetry floor. 06/29/21: Speech did see but patient had decreased voice quality and increased wob so aborted. Will ask them to assess again on Thursday. Chest tube out and ordered follow up CXR. Stable for transfer but ok with continuing monitoring in ICU. If bed needed could go to step down. 06/28/21: monitor drainage in ICU for 24 more hours. Can likely come out tomorrow. Continue in ICU for now. Once chest tube out, no objection to transfer. 06/27/21: Will place chest tube to water seal. Instructed staff if any change in respiratory status, place back on suction and obtain CXR. Otherwise will leave off. Continue T-piece as tolerated. Rehab/usp/LTACH appropriate. STable for transfer if and when bed becomes available. 06/26/21: T-piece today. If off the vent, agree with surgery and removal of chest tube as subq emphysema is improving as well. PT has seen suggested LTACH, however if we are able to wean she may need usp/rehab. Prognosis continues to improve. 06/25/21: Continue PSV as tolerated. Hopeful T-piece in the next 24-48 hours. Will drop steroids down further on . Can switch to daily and even change to oral. PT/OT consult, and follow up recs. May need LTACH vs rehab vs both. Continue to follow. 06/24/21: Daily PSV trials. Maybe ready for T-piece sson. Continue to wean steroids to off. IMS changed to 40q12 which is fine. Continue chest tube until off vent. Still on list for [facility] but will discuss with CM about checking into LTACH as patient will need rehab. PT/OT consult. 06/21/21: Continue current level of sedation. Chest tube does not have air leak but there is clear evidence of a PTX on right. Stripped tube at bedside and will repeat CXR in the morning. Hold on weaning sedation for now and hold on PSV trials. May need second chest tube vs vats if PTX worsens or does not resolve. Patient still on list for [facility], hopeful they will have a bed soon. Drop steroids to 40q8 starting Thursday. Monitor renal function, likely will improve. Needs more free water. Prognosis still remains guarded. 06/20/21: Restart some sedation. At least pain and maybe diprovan. Would like to wake patient up at some point and attempt some PSV trials. Labs are off this am. Large bump in white count but no fever, also no diff drawn. Could be error vs steroid related but this is in just 24 hours. Will repeat tomorrow. If spikes a temp neves culture as well. Small bump in Cr but still in normal range. Will watch. Now that peg in place, tube feeds and free water flushes. Still on list for [facility]. Patient has been steroids greater than 7 days so will have to wean. Can drop to 60q8 starting tomorrow. Prognosis still remains guarded. 06/19/21: surgery to attempt trach and peg today. Still will ask to keep on t ransfer list for [facility] as her other issues still need to be addressed. If able to place peg, can stop clinimix, give free water and start tube feeds. Prognosis remains guarded. pH better with drop in tidal volume. 06/18/21: [facility] has agreed to accept but no ICU beds available at this time. Spoke with Dr. Vasquez yesterday and Dr. Patricia spoke with ENT there. Spoke with RT this am and patient did have a leak when cuff let down and her tidal volumes dropped to below 100. Patient remains on abx and steriods. Will consider lightening sedation tomorrow and seeing how patient does if cuff leak persists. Dropped tidal volumes to 450. Continue PPN for now. 06/17/21: spoke with surgery and they feel transfer is reasonable. I have reached out to [facility] and [facility]MS has spoken with someone from [facility]. Await to hear back from them. Continue supportive measures and adequate sedation for pain control. No PSV trials as of yet. Blood sugar control, increase lantus. Most likely secondary to steroids. Continue abx therapy. Guarded prognosis. 06/16/21: Renal function improved with fluids. IMS to give more fluids (LR) today which I agree with. FeNa is =0.7. Should be fluid responsive. Continue clinimix. Needs long acting insulin. Agree with lantus. Asked nursing to increase sedation now that we know that patient's mental status is stable. Picc today. Air leak test vs Neck CT on tomorrow. 06/15/21: Hopeful with worsening renal function ( likely from code on yesterday) that sedatives are just lingering from that. Still making good urine but output has fallen off. Will send urine sodium and urine cr to check Fena. Most likely this is prerenal. ordered renal ultrasound as well. Continue abx and steroids. Will start clinimix today. This should help with the free water piece. Will give another liter bolus of LR right now. Keep sedation off for now. Guarded prognosis. 06/14/21: Will discuss with surgery future plans. They have ordered steroids to help with inflammation and abx continue. All others appears stable and no acute evidence of bleeding at this time. Follow up surgery recs if any new ones. Guarded prognosis. 06/13/21: Patient to back to OR today. BLood transfusion. Will send DIC panel and may need to given cryo if over 6 units of PRBC's given. Patient will likely need trach and peg as we need to address nutrition. Chest tube placed, large bore now. Patient now with right sided effusion. Hemothorax???. Will continue to monitor output. Needs picc line as femoral should come out soon. Continue pressors. Continue sedation for pain control and comfort. Guarded prognosis. Surgery comfortable with neck and current situation so they have not request transfer. 1. Placed right femoral central line. pressors can run through this. 2. Repeat chemistry stat given bicarb of 8 and blood sugar of greater than 600. Ordering FSBS now. Earlier bicarb was 25. If accurate will need bicarb drip and vasopressin but not sure as pH on blood gas was normal done around the same time. 3. Coagulopathy is improving. INR down to 4.55 and PTT and pT improving. Will continue to give FFP. Ordered more vitamin K. H/H is stable but patient is oozing from neck and mouth. 4. Vasopressor for blood pressure. Need to keep map 65 and greater 5. Lujan is needed for accurate I/O 6. Surgery called by IMS about current CT situation. They state they will reassess in the am. I have reviewed the images myself. If I can position the patient safely without compromising the airway after adequate sedation, may con marketing researcher placing chest tube now as INR is better and FFP is hanging. Patient is morbidly obese so shits could move the ET tube so if not safe, will wait until surgery comes in the morning. 7. Would not attempt to pass OG or NG tube given current situation in neck 8. Will discuss with surgery tomorrow but I feel this patient should be transferred to a tertiary care facility with ENT as we do not have that service here. CCT 31 minutes. Subjective Date of service: 07/09/21 Interval history: Successful change out of trach on yesterday in OR by surgery. No acute events. Objective Vital Signs - 12hr 07/08/21 07/08/21 07/08/21 22:00 22:30 23:00 Temperature Pulse Rate 86 89 93 H Pulse Rate [ From Monitor] Respiratory 24 25 H 22 Rate Blood Pressure 129/68 130/67 122/68 O2 Sat by Pulse 97 98 99 Oximetry O2 Sat by Pulse Oximetry [ Assessment] 07/08/21 07/08/21 07/08/21 23:19 23:20 23:30 Temperature Pulse Rate 87 90 Pulse Rate [ From Monitor] Respiratory 16 24 Rate Blood Pressure 122/68 114/75 O2 Sat by Pulse 99 98 Oximetry O2 Sat by Pulse 100 Oximetry [ Assessment] 07/09/21 07/09/21 07/09/21 00:00 00:30 01:00 Temperature 98.8 F Pulse Rate 87 84 87 Pulse Rate [ 85 From Monitor] Respiratory 21 15 23 Rate Blood Pressure 119/68 128/70 118/64 O2 Sat by Pulse 99 97 96 Oximetry O2 Sat by Pulse Oximetry [ Assessment] 07/09/21 07/09/21 07/09/21 01:30 02:00 02:30 Temperature Pulse Rate 92 H 87 87 Pulse Rate [ From Monitor] Respiratory 13 21 19 Rate Blood Pressure 130/86 118/69 106/73 O2 Sat by Pulse 94 98 99 Oximetry O2 Sat by Pulse Oximetry [ Assessment] 07/09/21 07/09/21 07/09/21 03:01 03:30 04:00 Temperature 99.1 F Pulse Rate 87 88 87 Pulse Rate [ 88 From Monitor] Respiratory 20 19 16 Rate Blood Pressure 136/75 130/77 142/89 O2 Sat by Pulse 98 99 99 Oximetry O2 Sat by Pulse Oximetry [ Assessment] 07/09/21 07/09/21 07/09/21 04:20 04:31 05:00 Temperature Pulse Rate 82 87 Pulse Rate [ From Monitor] Respiratory 22 14 Rate Blood Pressure 151/83 158/78 O2 Sat by Pulse 98 98 Oximetry O2 Sat by Pulse 99 Oximetry [ Assessment] 07/09/21 07/09/21 07/09/21 05:30 06:00 06:30 Temperature Pulse Rate 88 87 89 Pulse Rate [ From Monitor] Respiratory 22 26 H 20 Rate Blood Pressure 158/84 149/85 147/76 O2 Sat by Pulse 99 99 100 Oximetry O2 Sat by Pulse Oximetry [ Assessment] 07/09/21 07/09/21 07/09/21 07:00 07:30 08:00 Temperature Pulse Rate 90 90 91 H Pulse Rate [ 91 H From Monitor] Respiratory Rate Blood Pressure 139/70 143/76 139/72 O2 Sat by Pulse 100 100 100 Oximetry O2 Sat by Pulse Oximetry [ Assessment] 07/09/21 07/09/21 07/09/21 08:10 08:11 08:30 Temperature Pulse Rate 89 Pulse Rate [ From Monitor] Respiratory 15 Rate Blood Pressure 145/69 O2 Sat by Pulse 100 100 Oximetry O2 Sat by Pulse 100 Oximetry [ Assessment] 07/09/21 07/09/21 09:00 09:15 Temperature Pulse Rate 90 93 H Pulse Rate [ From Monitor] Respiratory 18 Rate Blood Pressure 133/70 133/70 O2 Sat by Pulse 99 Oximetry O2 Sat by Pulse Oximetry [ Assessment] Constitutional: alert, other (on vent trach in place) Eyes: non-icteric ENT: oropharynx moist Neck: other (trach in place) Ascultation: Bilateral: clear Percussion: Bilateral: not dull Cardiovascular: regular rate and rhythm Gastrointestinal: normoactive bowel sounds Integumentary: normal Extremities: no edema, other (subq emphysema) Neurologic: normal mental status CBC and BMP: 07/09/21 06:10 07/09/21 06:10 ABG, PT/INR, D-dimer: ABG ABG pH 7.448 pH Units (7.350-7.450) 07/04/21 01:44 POC ABG pCO2 25.6 mmHg (32.0-48.0) L 06/13/21 04:31 ABG pCO2 39.5 mm Hg 07/04/21 01:44 POC ABG pO2 138.8 mmHg (83-108) H 06/13/21 04:31 ABG pO2 107.7 mm Hg (80.0-90.0) H 07/04/21 01:44 POC ABG HCO3 21.4 06/13/21 04:31 ABG O2 Saturation 98.0 % (95.0-99.0) 07/04/21 01:44 PT/INR, D-dimer PT 18.3 Sec. (12.2-14.9) H 06/20/21 04:33 INR 1.37 (0.87-1.13) H 06/20/21 04:33 D-Dimer 1244.63 ng/mlDDU (0-234) H 06/13/21 Unknown Abnormal lab findings: Abnormal Labs 06/11/21 06/11/21 06/11/21 15:23 15:23 19:20 WBC 12.0 H RBC Hgb Hct MCV 72 L MCH 21 L RDW 17.5 H Plt Count Lymph % (Auto) 12.9 L Swisher % (Auto) 8.6 H Lymph # (Auto) Swisher # (Auto) 1.0 H Seg Neutrophils % 77.4 H Seg Neuts % (Manual) Lymphocytes % (Manual) Monocytes % (Manual) Seg Neutrophils # 9.3 H Seg Neutrophils # Man Lymphocytes # (Manual) Monocytes # (Manual) PT INR APTT Fibrinogen D-Dimer ABG pH POC ABG pCO2 POC ABG pO2 ABG pO2 ABG HCO3 ABG O2 Saturation ABG Base Excess ABG Hemoglobin ABG Oxyhemoglobin Oxyhemoglobin Sodium Potassium Chloride Carbon Dioxide BUN Creatinine Glucose 144 H POC Glucose Lactic Acid Calcium Phosphorus Magnesium AST ALT Alkaline Phosphatase C-Reactive Protein Total Protein Albumin Triglycerides Ur Specific [place] Urine Creatinine Crossmatch See Detail 06/11/21 06/11/21 06/11/21 19:29 19:29 23:21 WBC 15.8 H RBC Hgb 9.4 L Hct MCV 72 L MCH 22 L RDW 17.4 H Plt Count Lymph % (Auto) 9.2 L Swisher % (Auto) Lymph # (Auto) Swisher # (Auto) Seg Neutrophils % 89.0 H Seg Neuts % (Manual) Lymphocytes % (Manual) Monocytes % (Manual) Seg Neutrophils # 14.0 H Seg Neutrophils # Man Lymphocytes # (Manual) Monocytes # (Manual) PT 72.9 H INR 8.18 H* APTT 71.7 H* Fibrinogen D-Dimer ABG pH POC ABG pCO2 POC ABG pO2 ABG pO2 ABG HCO3 ABG O2 Saturation ABG Base Excess ABG Hemoglobin ABG Oxyhemoglobin Oxyhemoglobin Sodium 149 H D Potassium Chloride 124.3 H Carbon Dioxide 8 L* D BUN Creatinine 0.3 L Glucose 628 H* POC Glucose Lactic Acid Calcium 2.4 L* D Phosphorus Magnesium AST ALT < 5 L Alkaline Phosphatase 19 L C-Reactive Protein Total Protein 1.6 L D Albumin 0.8 L Triglycerides Ur Specific [place] Urine Creatinine Crossmatch 06/11/21 06/11/21 06/11/21 23:21 23:22 23:42 WBC RBC Hgb Hct MCV MCH 27 L RDW 22.2 H Plt Count 131 L Lymph % (Auto) Swisher % (Auto) Lymph # (Auto) Swisher # (Auto) Seg Neutrophils % Seg Neuts % (Manual) Lymphocytes % (Manual) Monocytes % (Manual) Seg Neutrophils # Seg Neutrophils # Man Lymphocytes # (Manual) Monocytes # (Manual) PT 46.3 H INR 4.55 H APTT 54.8 H Fibrinogen D-Dimer ABG pH POC ABG pCO2 POC ABG pO2 325.9 H ABG pO2 ABG HCO3 ABG O2 Saturation ABG Base Excess ABG Hemoglobin 8.0 L ABG Oxyhemoglobin 99.0 H Oxyhemoglobin Sodium Potassium Chloride Carbon Dioxide BUN Creatinine Glucose POC Glucose Lactic Acid Calcium Phosphorus Magnesium AST ALT Alkaline Phosphatase C-Reactive Protein Total Protein Albumin Triglycerides Ur Specific [place] Urine Creatinine Crossmatch 06/12/21 06/12/21 06/12/21 01:45 01:45 01:45 WBC 21.6 H RBC 3.04 L Hgb 6.7 L D Hct 22.4 L D MCV 74 L MCH 22 L RDW 18.9 H Plt Count Lymph % (Auto) Swisher % (Auto) Lymph # (Auto) Swisher # (Auto) Seg Neutrophils % Seg Neuts % (Manual) 76.0 H Lymphocytes % (Manual) 2.0 L Monocytes % (Manual) 8.0 H Seg Neutrophils # Seg Neutrophils # Man 16.4 H Lymphocytes # (Manual) 0.4 L Monocytes # (Manual) 1.7 H PT 25.4 H INR 2.10 H APTT Fibrinogen D-Dimer ABG pH POC ABG pCO2 POC ABG pO2 ABG pO2 ABG HCO3 ABG O2 Saturation ABG Base Excess ABG Hemoglobin ABG Oxyhemoglobin Oxyhemoglobin Sodium Potassium 5.6 H D Chloride Carbon Dioxide 20 L D BUN Creatinine Glucose 368 H POC Glucose Lactic Acid Calcium 7.1 L D Phosphorus Magnesium AST ALT Alkaline Phosphatase C-Reactive Protein Total Protein 5.3 L D Albumin 3.1 L Triglycerides Ur Specific [place] Urine Creatinine Crossmatch 06/12/21 06/12/21 06/12/21 02:05 04:41 11:05 WBC 14.6 H RBC 3.52 L Hgb 8.5 L Hct 27.7 L MCV MCH 24 L RDW 20.9 H Plt Count Lymph % (Auto) Swisher % (Auto) Lymph # (Auto) Swisher # (Auto) Seg Neutrophils % Seg Neuts % (Manual) Lymphocytes % (Manual) Monocytes % (Manual) Seg Neutrophils # Seg Neutrophils # Man Lymphocytes # (Manual) Monocytes # (Manual) PT INR APTT Fibrinogen D-Dimer ABG pH POC ABG pCO2 POC ABG pO2 224.6 H ABG pO2 ABG HCO3 ABG O2 Saturation ABG Base Excess ABG Hemoglobin 7.3 L ABG Oxyhemoglobin 98.7 H Oxyhemoglobin Sodium Potassium Chloride Carbon Dioxide BUN Creatinine Glucose POC Glucose 308 H Lactic Acid Calcium Phosphorus Magnesium AST ALT Alkaline Phosphatase C-Reactive Protein Total Protein Albumin Triglycerides Ur Specific [place] Urine Creatinine Crossmatch 06/12/21 06/12/21 06/12/21 11:05 11:05 12:18 WBC RBC Hgb Hct MCV MCH RDW Plt Count Lymph % (Auto) Swisher % (Auto) Lymph # (Auto) Swisher # (Auto) Seg Neutrophils % Seg Neuts % (Manual) Lymphocytes % (Manual) Monocytes % (Manual) Seg Neutrophils # Seg Neutrophils # Man Lymphocytes # (Manual) Monocytes # (Manual) PT 16.8 H INR 1.23 H APTT Fibrinogen D-Dimer ABG pH POC ABG pCO2 POC ABG pO2 ABG pO2 ABG HCO3 ABG O2 Saturation ABG Base Excess ABG Hemoglobin ABG Oxyhemoglobin Oxyhemoglobin Sodium Potassium Chloride Carbon Dioxide BUN 24 H Creatinine Glucose 324 H POC Glucose 281 H Lactic Acid Calcium 7.5 L Phosphorus Magnesium AST 70 H ALT 57 H Alkaline Phosphatase C-Reactive Protein Total Protein 6.0 L Albumin 3.6 L Triglycerides Ur Specific [place] Urine Creatinine Crossmatch 06/12/21 06/12/21 06/12/21 17:00 17:00 17:00 WBC RBC Hgb 7.5 L Hct 24.0 L MCV MCH RDW Plt Count Lymph % (Auto) Swisher % (Auto) Lymph # (Auto) Swisher # (Auto) Seg Neutrophils % Seg Neuts % (Manual) Lymphocytes % (Manual) Monocytes % (Manual) Seg Neutrophils # Seg Neutrophils # Man Lymphocytes # (Manual) Monocytes # (Manual) PT 16.0 H INR 1.16 H APTT Fibrinogen D-Dimer ABG pH POC ABG pCO2 POC ABG pO2 ABG pO2 ABG HCO3 ABG O2 Saturation ABG Base Excess ABG Hemoglobin ABG Oxyhemoglobin Oxyhemoglobin Sodium Potassium Chloride Carbon Dioxide BUN Creatinine Glucose POC Glucose Lactic Acid Calcium Phosphorus Magnesium AST ALT Alkaline Phosphatase C-Reactive Protein Total Protein Albumin Triglycerides Ur Specific [place] 1.035 H Urine Creatinine Crossmatch 06/12/21 06/12/21 06/12/21 18:06 23:00 23:05 WBC RBC Hgb 7.6 L Hct 23.5 L MCV MCH RDW Plt Count Lymph % (Auto) Swisher % (Auto) Lymph # (Auto) Swisher # (Auto) Seg Neutrophils % Seg Neuts % (Manual) Lymphocytes % (Manual) Monocytes % (Manual) Seg Neutrophils # Seg Neutrophils # Man Lymphocytes # (Manual) Monocytes # (Manual) PT INR APTT Fibrinogen D-Dimer ABG pH POC ABG pCO2 POC ABG pO2 ABG pO2 ABG HCO3 ABG O2 Saturation ABG Base Excess ABG Hemoglobin ABG Oxyhemoglobin Oxyhemoglobin Sodium Potassium Chloride Carbon Dioxide BUN Creatinine Glucose POC Glucose 257 H 300 H Lactic Acid Calcium Phosphorus Magnesium AST ALT Alkaline Phosphatase C-Reactive Protein Total Protein Albumin Triglycerides Ur Specific [place] Urine Creatinine Crossmatch 06/13/21 06/13/21 06/13/21 04:31 05:19 07:30 WBC RBC Hgb 6.8 L Hct 21.7 L MCV MCH RDW Plt Count Lymph % (Auto) Swisher % (Auto) Lymph # (Auto) Swisher # (Auto) Seg Neutrophils % Seg Neuts % (Manual) Lymphocytes % (Manual) Monocytes % (Manual) Seg Neutrophils # Seg Neutrophils # Man Lymphocytes # (Manual) Monocytes # (Manual) PT INR APTT Fibrinogen D-Dimer ABG pH 7.541 H POC ABG pCO2 25.6 L POC ABG pO2 138.8 H ABG pO2 ABG HCO3 ABG O2 Saturation ABG Base Excess ABG Hemoglobin 7.3 L ABG Oxyhemoglobin 98.1 H Oxyhemoglobin Sodium Potassium Chloride Carbon Dioxide BUN Creatinine Glucose POC Glucose 286 H Lactic Acid Calcium Phosphorus Magnesium AST ALT Alkaline Phosphatase C-Reactive Protein Total Protein Albumin Triglycerides Ur Specific [place] Urine Creatinine Crossmatch 06/13/21 06/13/21 06/13/21 07:30 12:04 14:50 WBC RBC Hgb Hct MCV MCH RDW Plt Count Lymph % (Auto) Swisher % (Auto) Lymph # (Auto) Swisher # (Auto) Seg Neutrophils % Seg Neuts % (Manual) Lymphocytes % (Manual) Monocytes % (Manual) Seg Neutrophils # Seg Neutrophils # Man Lymphocytes # (Manual) Monocytes # (Manual) PT INR APTT Fibrinogen D-Dimer ABG pH 7.039 L* 7.182 L* POC ABG pCO2 POC ABG pO2 ABG pO2 63.1 L ABG HCO3 17.4 L ABG O2 Saturation 73.4 L ABG Base Excess -12.6 L -7.1 L ABG Hemoglobin 7.7 L 6.9 L ABG Oxyhemoglobin Oxyhemoglobin 71.8 L 93.5 L Sodium Potassium Chloride 108.9 H Carbon Dioxide BUN 28 H Creatinine Glucose 293 H POC Glucose Lactic Acid Calcium 7.2 L Phosphorus Magnesium AST 106 H ALT 92 H Alkaline Phosphatase C-Reactive Protein Total Protein 5.6 L Albumin 3.3 L Triglycerides Ur Specific [place] Urine Creatinine Crossmatch 06/13/21 06/13/21 06/13/21 14:54 15:45 17:34 WBC RBC Hgb Hct MCV MCH RDW Plt Count Lymph % (Auto) Swisher % (Auto) Lymph # (Auto) Swisher # (Auto) Seg Neutrophils % Seg Neuts % (Manual) Lymphocytes % (Manual) Monocytes % (Manual) Seg Neutrophils # Seg Neutrophils # Man Lymphocytes # (Manual) Monocytes # (Manual) PT INR APTT Fibrinogen D-Dimer ABG pH POC ABG pCO2 POC ABG pO2 ABG pO2 178.4 H ABG HCO3 ABG O2 Saturation 99.1 H ABG Base Excess ABG Hemoglobin 8.0 L ABG Oxyhemoglobin Oxyhemoglobin Sodium Potassium Chloride 107.3 H Carbon Dioxide 19 L BUN 33 H Creatinine 1.5 H Glucose 379 H POC Glucose Lactic Acid 5.30 H* Calcium 6.8 L Phosphorus Magnesium AST ALT Alkaline Phosphatase C-Reactive Protein Total Protein Albumin Triglycerides Ur Specific [place] Urine Creatinine Crossmatch 06/13/21 06/13/21 06/13/21 17:40 23:29 Unknown WBC 22.5 H RBC 3.16 L Hgb 8.0 L Hct 26.0 L MCV MCH 26 L RDW 21.4 H Plt Count Lymph % (Auto) Swisher % (Auto) Lymph # (Auto) Swisher # (Auto) Seg Neutrophils % Seg Neuts % (Manual) 88.0 H Lymphocytes % (Manual) 4.0 L Monocytes % (Manual) Seg Neutrophils # Seg Neutrophils # Man 19.8 H Lymphocytes # (Manual) 0.9 L Monocytes # (Manual) 1.4 H PT INR APTT Fibrinogen D-Dimer ABG pH POC ABG pCO2 POC ABG pO2 ABG pO2 ABG HCO3 ABG O2 Saturation ABG Base Excess ABG Hemoglobin ABG Oxyhemoglobin Oxyhemoglobin Sodium Potassium Chloride Carbon Dioxide BUN Creatinine Glucose POC Glucose 294 H 288 H Lactic Acid Calcium Phosphorus Magnesium AST ALT Alkaline Phosphatase C-Reactive Protein Total Protein Albumin Triglycerides Ur Specific [place] Urine Creatinine Crossmatch 06/13/21 06/14/21 06/14/21 Unknown 05:39 06:15 WBC RBC 2.93 L Hgb 7.2 L Hct 23.2 L MCV MCH 25 L RDW 21.2 H Plt Count Lymph % (Auto) Swisher % (Auto) Lymph # (Auto) Swisher # (Auto) Seg Neutrophils % Seg Neuts % (Manual) Lymphocytes % (Manual) Monocytes % (Manual) Seg Neutrophils # Seg Neutrophils # Man Lymphocytes # (Manual) Monocytes # (Manual) PT 17.6 H INR 1.31 H APTT Fibrinogen 546 H D-Dimer 1244.63 H ABG pH POC ABG pCO2 POC ABG pO2 ABG pO2 ABG HCO3 ABG O2 Saturation ABG Base Excess ABG Hemoglobin ABG Oxyhemoglobin Oxyhemoglobin Sodium Potassium Chloride Carbon Dioxide BUN Creatinine Glucose POC Glucose 246 H Lactic Acid Calcium Phosphorus Magnesium AST ALT Alkaline Phosphatase C-Reactive Protein Total Protein Albumin Triglycerides Ur Specific [place] Urine Creatinine Crossmatch 06/14/21 06/14/21 06/14/21 06:15 06:15 09:13 WBC RBC Hgb Hct MCV MCH RDW Plt Count Lymph % (Auto) Swisher % (Auto) Lymph # (Auto) Swisher # (Auto) Seg Neutrophils % Seg Neuts % (Manual) Lymphocytes % (Manual) Monocytes % (Manual) Seg Neutrophils # Seg Neutrophils # Man Lymphocytes # (Manual) Monocytes # (Manual) PT INR APTT Fibrinogen D-Dimer ABG pH POC ABG pCO2 POC ABG pO2 ABG pO2 183.0 H ABG HCO3 ABG O2 Saturation 99.2 H ABG Base Excess ABG Hemoglobin 6.6 L ABG Oxyhemoglobin Oxyhemoglobin Sodium 147 H Potassium Chloride 112.5 H Carbon Dioxide 21 L BUN 36 H Creatinine 1.4 H Glucose 281 H POC Glucose Lactic Acid Calcium 6.9 L Phosphorus Magnesium AST ALT Alkaline Phosphatase C-Reactive Protein Total Protein Albumin Triglycerides 189 H Ur Specific [place] Urine Creatinine Crossmatch 06/14/21 06/14/21 06/14/21 10:45 12:16 13:30 WBC RBC Hgb 7.1 L Hct 22.3 L MCV MCH RDW Plt Count Lymph % (Auto) Swisher % (Auto) Lymph # (Auto) Swisher # (Auto) Seg Neutrophils % Seg Neuts % (Manual) Lymphocytes % (Manual) Monocytes % (Manual) Seg Neutrophils # Seg Neutrophils # Man Lymphocytes # (Manual) Monocytes # (Manual) PT INR APTT Fibrinogen D-Dimer ABG pH 7.205 L POC ABG pCO2 POC ABG pO2 ABG pO2 261.3 H ABG HCO3 ABG O2 Saturation 99.4 H ABG Base Excess -7.2 L ABG Hemoglobin 7.6 L ABG Oxyhemoglobin Oxyhemoglobin Sodium Potassium Chloride Carbon Dioxide BUN Creatinine Glucose POC Glucose 174 H Lactic Acid Calcium Phosphorus Magnesium AST ALT Alkaline Phosphatase C-Reactive Protein Total Protein Albumin Triglycerides Ur Specific [place] Urine Creatinine Crossmatch 06/14/21 06/14/21 06/15/21 17:40 18:43 00:06 WBC RBC Hgb Hct MCV MCH RDW Plt Count Lymph % (Auto) Swisher % (Auto) Lymph # (Auto) Swisher # (Auto) Seg Neutrophils % Seg Neuts % (Manual) Lymphocytes % (Manual) Monocytes % (Manual) Seg Neutrophils # Seg Neutrophils # Man Lymphocytes # (Manual) Monocytes # (Manual) PT INR APTT Fibrinogen D-Dimer ABG pH 7.292 L POC ABG pCO2 POC ABG pO2 ABG pO2 78.8 L ABG HCO3 ABG O2 Saturation ABG Base Excess -5.0 L ABG Hemoglobin 9.1 L ABG Oxyhemoglobin Oxyhemoglobin 93.7 L Sodium Potassium Chloride Carbon Dioxide BUN Creatinine Glucose POC Glucose 182 H 144 H Lactic Acid Calcium Phosphorus Magnesium AST ALT Alkaline Phosphatase C-Reactive Protein Total Protein Albumin Triglycerides Ur Specific [place] Urine Creatinine Crossmatch 06/15/21 06/15/21 06/15/21 03:55 03:56 10:40 WBC RBC Hgb 8.4 L Hct 25.8 L MCV MCH RDW Plt Count Lymph % (Auto) [place] % (Auto) Lymph # (Auto) [place] # (Auto) Seg Neutrophils % Seg Neuts % (Manual) Lymphocytes % (Manual) Monocytes % (Manual) Seg Neutrophils # Seg Neutrophils # Man Lymphocytes # (Manual) Monocytes # (Manual) PT INR APTT Fibrinogen D-Dimer ABG pH POC ABG pCO2 POC ABG pO2 ABG pO2 ABG HCO3 ABG O2 Saturation ABG Base Excess ABG Hemoglobin ABG Oxyhemoglobin Oxyhemoglobin Sodium 147 H Potassium Chloride 112.2 H Carbon Dioxide 21 L BUN 47 H Creatinine 1.9 H Glucose 272 H POC Glucose Lactic Acid Calcium 7.3 L Phosphorus Magnesium AST 64 H ALT 106 H Alkaline Phosphatase C-Reactive Protein Total Protein 5.1 L Albumin 2.9 L Triglycerides Ur Specific [place] Urine Creatinine 81.1 H Crossmatch 06/15/21 06/15/21 06/15/21 11:46 17:16 23:17 WBC RBC Hgb Hct MCV MCH RDW Plt Count Lymph % (Auto) [place] % (Auto) Lymph # (Auto) [place] # (Auto) Seg Neutrophils % Seg Neuts % (Manual) Lymphocytes % (Manual) Monocytes % (Manual) Seg Neutrophils # Seg Neutrophils # Man Lymphocytes # (Manual) Monocytes # (Manual) PT INR APTT Fibrinogen D-Dimer ABG pH POC ABG pCO2 POC ABG pO2 ABG pO2 ABG HCO3 ABG O2 Saturation ABG Base Excess ABG Hemoglobin ABG Oxyhemoglobin Oxyhemoglobin Sodium Potassium Chloride Carbon Dioxide BUN Creatinine Glucose POC Glucose 271 H 268 H 264 H Lactic Acid Calcium Phosphorus Magnesium AST ALT Alkaline Phosphatase C-Reactive Protein Total Protein Albumin Triglycerides Ur Specific [place] Urine Creatinine Crossmatch 06/15/21 06/15/21 06/16/21 Unknown Unknown 04:32 WBC RBC 3.21 L 3.16 L Hgb 8.4 L 8.2 L Hct 26.1 L 25.4 L MCV MCH 26 L 26 L RDW 21.3 H 21.2 H Plt Count 105 L 118 L Lymph % (Auto) [place] % (Auto) Lymph # (Auto) [place] # (Auto) Seg Neutrophils % Seg Neuts % (Manual) Lymphocytes % (Manual) Monocytes % (Manual) Seg Neutrophils # Seg Neutrophils # Man Lymphocytes # (Manual) Monocytes # (Manual) PT INR APTT Fibrinogen D-Dimer ABG pH 7.465 H POC ABG pCO2 POC ABG pO2 ABG pO2 114.1 H ABG HCO3 ABG O2 Saturation ABG Base Excess ABG Hemoglobin 8.4 L ABG Oxyhemoglobin Oxyhemoglobin Sodium Potassium Chloride Carbon Dioxide BUN Creatinine Glucose POC Glucose Lactic Acid Calcium Phosphorus Magnesium AST ALT Alkaline Phosphatase C-Reactive Protein Total Protein Albumin Triglycerides Ur Specific [place] Urine Creatinine Crossmatch 06/16/21 06/16/21 06/16/21 04:32 04:32 05:08 WBC RBC Hgb Hct MCV MCH RDW Plt Count Lymph % (Auto) [place] % (Auto) Lymph # (Auto) [place] # (Auto) Seg Neutrophils % Seg Neuts % (Manual) Lymphocytes % (Manual) Monocytes % (Manual) Seg Neutrophils # Seg Neutrophils # Man Lymphocytes # (Manual) Monocytes # (Manual) PT INR APTT Fibrinogen D-Dimer ABG pH POC ABG pCO2 POC ABG pO2 ABG pO2 ABG HCO3 ABG O2 Saturation ABG Base Excess ABG Hemoglobin ABG Oxyhemoglobin Oxyhemoglobin Sodium 148 H Potassium 3.3 L Chloride 115.1 H Carbon Dioxide 21 L BUN 54 H Creatinine 1.6 H Glucose 367 H POC Glucose 356 H Lactic Acid Calcium 7.4 L Phosphorus Magnesium AST ALT Alkaline Phosphatase C-Reactive Protein 3.30 H Total Protein Albumin Triglycerides Ur Specific [place] Urine Creatinine Crossmatch 06/16/21 06/16/21 06/16/21 05:30 11:46 17:03 WBC RBC Hgb Hct MCV MCH RDW Plt Count Lymph % (Auto) [place] % (Auto) Lymph # (Auto) [place] # (Auto) Seg Neutrophils % Seg Neuts % (Manual) Lymphocytes % (Manual) Monocytes % (Manual) Seg Neutrophils # Seg Neutrophils # Man Lymphocytes # (Manual) Monocytes # (Manual) PT INR APTT Fibrinogen D-Dimer ABG pH 7.475 H POC ABG pCO2 POC ABG pO2 ABG pO2 171.8 H ABG HCO3 ABG O2 Saturation 99.1 H ABG Base Excess ABG Hemoglobin 11.7 L ABG Oxyhemoglobin Oxyhemoglobin Sodium Potassium Chloride Carbon Dioxide BUN Creatinine Glucose POC Glucose 309 H 345 H Lactic Acid Calcium Phosphorus Magnesium AST ALT Alkaline Phosphatase C-Reactive Protein Total Protein Albumin Triglycerides Ur Specific [place] Urine Creatinine Crossmatch 06/16/21 06/16/21 06/17/21 20:18 23:22 04:50 WBC RBC Hgb Hct MCV MCH RDW Plt Count Lymph % (Auto) [place] % (Auto) Lymph # (Auto) [place] # (Auto) Seg Neutrophils % Seg Neuts % (Manual) Lymphocytes % (Manual) Monocytes % (Manual) Seg Neutrophils # Seg Neutrophils # Man Lymphocytes # (Manual) Monocytes # (Manual) PT INR APTT Fibrinogen D-Dimer ABG pH 7.479 H POC ABG pCO2 POC ABG pO2 ABG pO2 143.1 H ABG HCO3 ABG O2 Saturation ABG Base Excess ABG Hemoglobin 10.0 L ABG Oxyhemoglobin Oxyhemoglobin Sodium Potassium Chloride Carbon Dioxide BUN Creatinine Glucose POC Glucose 325 H 315 H Lactic Acid Calcium Phosphorus Magnesium AST ALT Alkaline Phosphatase C-Reactive Protein Total Protein Albumin Triglycerides Ur Specific [place] Urine Creatinine Crossmatch 06/17/21 06/17/21 06/17/21 05:18 05:30 05:30 WBC RBC 3.17 L Hgb 8.2 L Hct 25.5 L MCV MCH 26 L RDW 21.2 H Plt Count 128 L Lymph % (Auto) [place] % (Auto) Lymph # (Auto) [place] # (Auto) Seg Neutrophils % Seg Neuts % (Manual) Lymphocytes % (Manual) Monocytes % (Manual) Seg Neutrophils # Seg Neutrophils # Man Lymphocytes # (Manual) Monocytes # (Manual) PT INR APTT Fibrinogen D-Dimer ABG pH POC ABG pCO2 POC ABG pO2 ABG pO2 ABG HCO3 ABG O2 Saturation ABG Base Excess ABG Hemoglobin ABG Oxyhemoglobin Oxyhemoglobin Sodium 148 H Potassium Chloride 113.7 H Carbon Dioxide 20 L BUN 57 H Creatinine 1.4 H Glucose 351 H POC Glucose 324 H Lactic Acid Calcium 8.0 L Phosphorus 2.30 L Magnesium AST ALT Alkaline Phosphatase C-Reactive Protein Total Protein Albumin Triglycerides Ur Specific [place] Urine Creatinine Crossmatch 06/17/21 06/17/21 06/17/21 11:49 17:43 21:42 WBC RBC Hgb Hct MCV MCH RDW Plt Count Lymph % (Auto) [place] % (Auto) Lymph # (Auto) [place] # (Auto) Seg Neutrophils % Seg Neuts % (Manual) Lymphocytes % (Manual) Monocytes % (Manual) Seg Neutrophils # Seg Neutrophils # Man Lymphocytes # (Manual) Monocytes # (Manual) PT INR APTT Fibrinogen D-Dimer ABG pH POC ABG pCO2 POC ABG pO2 ABG pO2 ABG HCO3 ABG O2 Saturation ABG Base Excess ABG Hemoglobin ABG Oxyhemoglobin Oxyhemoglobin Sodium Potassium Chloride Carbon Dioxide BUN Creatinine Glucose POC Glucose 305 H 307 H 286 H Lactic Acid Calcium Phosphorus Magnesium AST ALT Alkaline Phosphatase C-Reactive Protein Total Protein Albumin Triglycerides Ur Specific [place] Urine Creatinine Crossmatch 06/17/21 06/18/21 06/18/21 23:59 04:20 04:37 WBC RBC 3.53 L Hgb 9.1 L Hct 28.7 L MCV MCH 26 L RDW 21.3 H Plt Count Lymph % (Auto) [place] % (Auto) Lymph # (Auto) [place] # (Auto) Seg Neutrophils % Seg Neuts % (Manual) Lymphocytes % (Manual) Monocytes % (Manual) Seg Neutrophils # Seg Neutrophils # Man Lymphocytes # (Manual) Monocytes # (Manual) PT INR APTT Fibrinogen D-Dimer ABG pH 7.495 H POC ABG pCO2 POC ABG pO2 ABG pO2 108.3 H ABG HCO3 ABG O2 Saturation ABG Base Excess -2.1 L ABG Hemoglobin 10.0 L ABG Oxyhemoglobin Oxyhemoglobin Sodium Potassium Chloride Carbon Dioxide BUN Creatinine Glucose POC Glucose 264 H Lactic Acid Calcium Phosphorus Magnesium AST ALT Alkaline Phosphatase C-Reactive Protein Total Protein Albumin Triglycerides Ur Specific [place] Urine Creatinine Crossmatch 06/18/21 06/18/21 06/18/21 04:37 05:32 11:21 WBC RBC Hgb Hct MCV MCH RDW Plt Count Lymph % (Auto) [place] % (Auto) Lymph # (Auto) [place] # (Auto) Seg Neutrophils % Seg Neuts % (Manual) Lymphocytes % (Manual) Monocytes % (Manual) Seg Neutrophils # Seg Neutrophils # Man Lymphocytes # (Manual) Monocytes # (Manual) PT INR APTT Fibrinogen D-Dimer ABG pH POC ABG pCO2 POC ABG pO2 ABG pO2 ABG HCO3 ABG O2 Saturation ABG Base Excess ABG Hemoglobin ABG Oxyhemoglobin Oxyhemoglobin Sodium 148 H Potassium Chloride 114.7 H Carbon Dioxide BUN 59 H Creatinine 1.3 H Glucose 329 H POC Glucose 293 H 291 H Lactic Acid Calcium 8.1 L Phosphorus Magnesium AST ALT Alkaline Phosphatase C-Reactive Protein Total Protein Albumin Triglycerides Ur Specific [place] Urine Creatinine Crossmatch 06/18/21 06/18/21 06/19/21 18:21 21:46 00:15 WBC RBC Hgb Hct MCV MCH RDW Plt Count Lymph % (Auto) [place] % (Auto) Lymph # (Auto) [place] # (Auto) Seg Neutrophils % Seg Neuts % (Manual) Lymphocytes % (Manual) Monocytes % (Manual) Seg Neutrophils # Seg Neutrophils # Man Lymphocytes # (Manual) Monocytes # (Manual) PT INR APTT Fibrinogen D-Dimer ABG pH POC ABG pCO2 POC ABG pO2 ABG pO2 ABG HCO3 ABG O2 Saturation ABG Base Excess ABG Hemoglobin ABG Oxyhemoglobin Oxyhemoglobin Sodium Potassium Chloride Carbon Dioxide BUN Creatinine Glucose POC Glucose 239 H 259 H 310 H Lactic Acid Calcium Phosphorus Magnesium AST ALT Alkaline Phosphatase C-Reactive Protein Total Protein Albumin Triglycerides Ur Specific [place] Urine Creatinine Crossmatch 06/19/21 06/19/21 06/19/21 04:00 04:00 04:50 WBC RBC 3.64 L Hgb 9.1 L Hct 29.1 L MCV MCH 25 L RDW 21.5 H Plt Count Lymph % (Auto) [place] % (Auto) Lymph # (Auto) [place] # (Auto) Seg Neutrophils % Seg Neuts % (Manual) Lymphocytes % (Manual) Monocytes % (Manual) Seg Neutrophils # Seg Neutrophils # Man Lymphocytes # (Manual) Monocytes # (Manual) PT INR APTT Fibrinogen D-Dimer ABG pH POC ABG pCO2 POC ABG pO2 ABG pO2 78.9 L ABG HCO3 ABG O2 Saturation ABG Base Excess -3.2 L ABG Hemoglobin 7.6 L ABG Oxyhemoglobin Oxyhemoglobin Sodium 148 H Potassium Chloride 114.9 H Carbon Dioxide 19 L BUN 59 H Creatinine Glucose 345 H POC Glucose Lactic Acid Calcium 8.1 L Phosphorus 4.60 H D Magnesium 2.40 H AST ALT Alkaline Phosphatase C-Reactive Protein Total Protein Albumin Triglycerides Ur Specific [place] Urine Creatinine Crossmatch 06/19/21 06/19/21 06/19/21 06:28 11:11 17:20 WBC RBC Hgb Hct MCV MCH RDW Plt Count Lymph % (Auto) [place] % (Auto) Lymph # (Auto) [place] # (Auto) Seg Neutrophils % Seg Neuts % (Manual) Lymphocytes % (Manual) Monocytes % (Manual) Seg Neutrophils # Seg Neutrophils # Man Lymphocytes # (Manual) Monocytes # (Manual) PT 29.7 H INR 2.57 H APTT Fibrinogen D-Dimer ABG pH POC ABG pCO2 POC ABG pO2 ABG pO2 ABG HCO3 ABG O2 Saturation ABG Base Excess ABG Hemoglobin ABG Oxyhemoglobin Oxyhemoglobin Sodium Potassium Chloride Carbon Dioxide BUN Creatinine Glucose POC Glucose 279 H 275 H Lactic Acid Calcium Phosphorus Magnesium AST ALT Alkaline Phosphatase C-Reactive Protein Total Protein Albumin Triglycerides Ur Specific [place] Urine Creatinine Crossmatch 06/19/21 06/19/21 06/19/21 18:30 19:20 23:27 WBC RBC Hgb 8.0 L Hct 25.0 L MCV MCH RDW Plt Count Lymph % (Auto) [place] % (Auto) Lymph # (Auto) [place] # (Auto) Seg Neutrophils % Seg Neuts % (Manual) Lymphocytes % (Manual) Monocytes % (Manual) Seg Neutrophils # Seg Neutrophils # Man Lymphocytes # (Manual) Monocytes # (Manual) PT INR APTT Fibrinogen D-Dimer ABG pH POC ABG pCO2 POC ABG pO2 ABG pO2 ABG HCO3 ABG O2 Saturation ABG Base Excess ABG Hemoglobin ABG Oxyhemoglobin Oxyhemoglobin Sodium Potassium Chloride Carbon Dioxide BUN Creatinine Glucose POC Glucose 279 H 290 H Lactic Acid Calcium Phosphorus Magnesium AST ALT Alkaline Phosphatase C-Reactive Protein Total Protein Albumin Triglycerides Ur Specific [place] Urine Creatinine Crossmatch 06/20/21 06/20/21 06/20/21 00:00 04:33 04:33 WBC 22.3 H RBC 3.31 L Hgb 7.4 L 8.5 L Hct 22.5 L 26.5 L MCV MCH 26 L RDW 21.5 H Plt Count Lymph % (Auto) [place] % (Auto) Lymph # (Auto) [place] # (Auto) Seg Neutrophils % Seg Neuts % (Manual) Lymphocytes % (Manual) Monocytes % (Manual) Seg Neutrophils # Seg Neutrophils # Man Lymphocytes # (Manual) Monocytes # (Manual) PT INR APTT Fibrinogen D-Dimer ABG pH POC ABG pCO2 POC ABG pO2 ABG pO2 ABG HCO3 ABG O2 Saturation ABG Base Excess ABG Hemoglobin ABG Oxyhemoglobin Oxyhemoglobin Sodium 148 H Potassium Chloride 114.2 H Carbon Dioxide BUN 70 H Creatinine 1.4 H Glucose 313 H POC Glucose Lactic Acid Calcium 8.2 L Phosphorus Magnesium 2.50 H AST ALT Alkaline Phosphatase C-Reactive Protein Total Protein Albumin Triglycerides Ur Specific [place] Urine Creatinine Crossmatch 06/20/21 06/20/21 06/20/21 04:33 05:27 11:21 WBC RBC Hgb Hct MCV MCH RDW Plt Count Lymph % (Auto) [place] % (Auto) Lymph # (Auto) [place] # (Auto) Seg Neutrophils % Seg Neuts % (Manual) Lymphocytes % (Manual) Monocytes % (Manual) Seg Neutrophils # Seg Neutrophils # Man Lymphocytes # (Manual) Monocytes # (Manual) PT 18.3 H INR 1.37 H APTT Fibrinogen D-Dimer ABG pH POC ABG pCO2 POC ABG pO2 ABG pO2 ABG HCO3 ABG O2 Saturation ABG Base Excess ABG Hemoglobin ABG Oxyhemoglobin Oxyhemoglobin Sodium Potassium Chloride Carbon Dioxide BUN Creatinine Glucose POC Glucose 288 H 306 H Lactic Acid Calcium Phosphorus Magnesium AST ALT Alkaline Phosphatase C-Reactive Protein Total Protein Albumin Triglycerides Ur Specific [place] Urine Creatinine Crossmatch 06/20/21 06/20/21 06/20/21 12:23 15:56 18:20 WBC RBC Hgb 8.2 L 8.1 L Hct 25.9 L 25.5 L MCV MCH RDW Plt Count Lymph % (Auto) [place] % (Auto) Lymph # (Auto) [place] # (Auto) Seg Neutrophils % Seg Neuts % (Manual) Lymphocytes % (Manual) Monocytes % (Manual) Seg Neutrophils # Seg Neutrophils # Man Lymphocytes # (Manual) Monocytes # (Manual) PT INR APTT Fibrinogen D-Dimer ABG pH POC ABG pCO2 POC ABG pO2 ABG pO2 ABG HCO3 ABG O2 Saturation ABG Base Excess ABG Hemoglobin ABG Oxyhemoglobin Oxyhemoglobin Sodium Potassium Chloride Carbon Dioxide BUN Creatinine Glucose POC Glucose 293 H Lactic Acid Calcium Phosphorus Magnesium AST ALT Alkaline Phosphatase C-Reactive Protein Total Protein Albumin Triglycerides Ur Specific [place] Urine Creatinine Crossmatch 06/20/21 06/21/21 06/21/21 23:11 04:20 04:42 WBC 15.1 H RBC 2.84 L Hgb 7.3 L Hct 23.1 L MCV MCH 26 L RDW 21.5 H Plt Count Lymph % (Auto) 3.5 L [place] % (Auto) 11.7 H Lymph # (Auto) 0.5 L [place] # (Auto) 1.8 H Seg Neutrophils % 84.7 H Seg Neuts % (Manual) Lymphocytes % (Manual) Monocytes % (Manual) Seg Neutrophils # 12.8 H Seg Neutrophils # Man Lymphocytes # (Manual) Monocytes # (Manual) PT INR APTT Fibrinogen D-Dimer ABG pH POC ABG pCO2 POC ABG pO2 ABG pO2 98.5 H ABG HCO3 ABG O2 Saturation ABG Base Excess ABG Hemoglobin 7.2 L ABG Oxyhemoglobin Oxyhemoglobin Sodium Potassium Chloride Carbon Dioxide BUN Creatinine Glucose POC Glucose 206 H Lactic Acid Calcium Phosphorus Magnesium AST ALT Alkaline Phosphatase C-Reactive Protein Total Protein Albumin Triglycerides Ur Specific [place] Urine Creatinine Crossmatch 06/21/21 06/21/21 06/21/21 04:42 05:08 11:06 WBC RBC Hgb Hct MCV MCH RDW Plt Count Lymph % (Auto) [place] % (Auto) Lymph # (Auto) [place] # (Auto) Seg Neutrophils % Seg Neuts % (Manual) Lymphocytes % (Manual) Monocytes % (Manual) Seg Neutrophils # Seg Neutrophils # Man Lymphocytes # (Manual) Monocytes # (Manual) PT INR APTT Fibrinogen D-Dimer ABG pH POC ABG pCO2 POC ABG pO2 ABG pO2 ABG HCO3 ABG O2 Saturation ABG Base Excess ABG Hemoglobin ABG Oxyhemoglobin Oxyhemoglobin Sodium 151 H Potassium Chloride 117.2 H Carbon Dioxide 21 L BUN 75 H Creatinine 1.6 H Glucose 216 H POC Glucose 190 H 204 H Lactic Acid Calcium 7.9 L Phosphorus Magnesium 2.60 H AST ALT Alkaline Phosphatase C-Reactive Protein Total Protein Albumin Triglycerides 254 H Ur Specific [place] Urine Creatinine Crossmatch 06/21/21 06/21/21 06/21/21 14:00 16:42 21:52 WBC RBC Hgb 7.1 L 7.2 L Hct 22.0 L 22.1 L MCV MCH RDW Plt Count Lymph % (Auto) [place] % (Auto) Lymph # (Auto) [place] # (Auto) Seg Neutrophils % Seg Neuts % (Manual) Lymphocytes % (Manual) Monocytes % (Manual) Seg Neutrophils # Seg Neutrophils # Man Lymphocytes # (Manual) Monocytes # (Manual) PT INR APTT Fibrinogen D-Dimer ABG pH POC ABG pCO2 POC ABG pO2 ABG pO2 ABG HCO3 ABG O2 Saturation ABG Base Excess ABG Hemoglobin ABG Oxyhemoglobin Oxyhemoglobin Sodium Potassium Chloride Carbon Dioxide BUN Creatinine Glucose POC Glucose 207 H Lactic Acid Calcium Phosphorus Magnesium AST ALT Alkaline Phosphatase C-Reactive Protein Total Protein Albumin Triglycerides Ur Specific [place] Urine Creatinine Crossmatch 06/21/21 06/22/21 06/22/21 23:29 04:30 04:30 WBC 16.8 H RBC 2.93 L Hgb 7.4 L Hct 23.9 L MCV MCH 25 L RDW 21.8 H Plt Count Lymph % (Auto) [place] % (Auto) Lymph # (Auto) [place] # (Auto) Seg Neutrophils % Seg Neuts % (Manual) Lymphocytes % (Manual) Monocytes % (Manual) Seg Neutrophils # Seg Neutrophils # Man Lymphocytes # (Manual) Monocytes # (Manual) PT INR APTT Fibrinogen D-Dimer ABG pH POC ABG pCO2 POC ABG pO2 ABG pO2 ABG HCO3 ABG O2 Saturation ABG Base Excess ABG Hemoglobin ABG Oxyhemoglobin Oxyhemoglobin Sodium 151 H Potassium Chloride 118.7 H Carbon Dioxide BUN 57 H Creatinine Glucose 238 H POC Glucose 273 H Lactic Acid Calcium 8.0 L Phosphorus Magnesium 2.70 H AST ALT Alkaline Phosphatase C-Reactive Protein Total Protein Albumin Triglycerides Ur Specific [place] Urine Creatinine Crossmatch 06/22/21 06/22/21 06/22/21 05:17 11:31 14:20 WBC RBC Hgb 7.4 L Hct 22.5 L MCV MCH RDW Plt Count Lymph % (Auto) [place] % (Auto) Lymph # (Auto) [place] # (Auto) Seg Neutrophils % Seg Neuts % (Manual) Lymphocytes % (Manual) Monocytes % (Manual) Seg Neutrophils # Seg Neutrophils # Man Lymphocytes # (Manual) Monocytes # (Manual) PT INR APTT Fibrinogen D-Dimer ABG pH POC ABG pCO2 POC ABG pO2 ABG pO2 ABG HCO3 ABG O2 Saturation ABG Base Excess ABG Hemoglobin ABG Oxyhemoglobin Oxyhemoglobin Sodium Potassium Chloride Carbon Dioxide BUN Creatinine Glucose POC Glucose 214 H 214 H Lactic Acid Calcium Phosphorus Magnesium AST ALT Alkaline Phosphatase C-Reactive Protein Total Protein Albumin Triglycerides Ur Specific [place] Urine Creatinine Crossmatch 06/22/21 06/22/21 06/23/21 17:18 23:47 05:33 WBC RBC Hgb Hct MCV MCH RDW Plt Count Lymph % (Auto) [place] % (Auto) Lymph # (Auto) [place] # (Auto) Seg Neutrophils % Seg Neuts % (Manual) Lymphocytes % (Manual) Monocytes % (Manual) Seg Neutrophils # Seg Neutrophils # Man Lymphocytes # (Manual) Monocytes # (Manual) PT INR APTT Fibrinogen D-Dimer ABG pH POC ABG pCO2 POC ABG pO2 ABG pO2 ABG HCO3 ABG O2 Saturation ABG Base Excess ABG Hemoglobin ABG Oxyhemoglobin Oxyhemoglobin Sodium Potassium Chloride Carbon Dioxide BUN Creatinine Glucose POC Glucose 238 H 227 H 202 H Lactic Acid Calcium Phosphorus Magnesium AST ALT Alkaline Phosphatase C-Reactive Protein Total Protein Albumin Triglycerides Ur Specific [place] Urine Creatinine Crossmatch 06/23/21 06/23/21 06/23/21 10:04 10:04 11:06 WBC 20.3 H RBC 2.71 L Hgb 7.3 L Hct 21.8 L MCV MCH 27 L RDW 22.1 H Plt Count Lymph % (Auto) [place] % (Auto) Lymph # (Auto) [place] # (Auto) Seg Neutrophils % Seg Neuts % (Manual) Lymphocytes % (Manual) Monocytes % (Manual) Seg Neutrophils # Seg Neutrophils # Man Lymphocytes # (Manual) Monocytes # (Manual) PT INR APTT Fibrinogen D-Dimer ABG pH POC ABG pCO2 POC ABG pO2 ABG pO2 ABG HCO3 ABG O2 Saturation ABG Base Excess ABG Hemoglobin ABG Oxyhemoglobin Oxyhemoglobin Sodium 151 H Potassium 3.2 L Chloride 116.9 H Carbon Dioxide BUN 40 H Creatinine Glucose 208 H POC Glucose 204 H Lactic Acid Calcium 8.0 L Phosphorus 1.80 L D Magnesium AST ALT Alkaline Phosphatase C-Reactive Protein Total Protein Albumin Triglycerides Ur Specific [place] Urine Creatinine Crossmatch 06/23/21 06/23/21 06/24/21 16:11 23:47 04:00 WBC 16.9 H RBC 2.49 L Hgb 6.6 L Hct 20.3 L MCV MCH 26 L RDW 22.6 H Plt Count Lymph % (Auto) [place] % (Auto) Lymph # (Auto) [place] # (Auto) Seg Neutrophils % Seg Neuts % (Manual) Lymphocytes % (Manual) Monocytes % (Manual) Seg Neutrophils # Seg Neutrophils # Man Lymphocytes # (Manual) Monocytes # (Manual) PT INR APTT Fibrinogen D-Dimer ABG pH POC ABG pCO2 POC ABG pO2 ABG pO2 ABG HCO3 ABG O2 Saturation ABG Base Excess ABG Hemoglobin ABG Oxyhemoglobin Oxyhemoglobin Sodium Potassium Chloride Carbon Dioxide BUN Creatinine Glucose POC Glucose 228 H 189 H Lactic Acid Calcium Phosphorus Magnesium AST ALT Alkaline Phosphatase C-Reactive Protein Total Protein Albumin Triglycerides Ur Specific [place] Urine Creatinine Crossmatch 06/24/21 06/24/21 06/24/21 04:00 05:43 06:40 WBC RBC Hgb Hct MCV MCH RDW Plt Count Lymph % (Auto) [place] % (Auto) Lymph # (Auto) [place] # (Auto) Seg Neutrophils % Seg Neuts % (Manual) Lymphocytes % (Manual) Monocytes % (Manual) Seg Neutrophils # Seg Neutrophils # Man Lymphocytes # (Manual) Monocytes # (Manual) PT INR APTT Fibrinogen D-Dimer ABG pH POC ABG pCO2 POC ABG pO2 ABG pO2 ABG HCO3 ABG O2 Saturation ABG Base Excess ABG Hemoglobin ABG Oxyhemoglobin Oxyhemoglobin Sodium 148 H Potassium 3.2 L Chloride 115.6 H Carbon Dioxide BUN 35 H Creatinine Glucose 153 H POC Glucose 134 H Lactic Acid Calcium 7.9 L Phosphorus 2.40 L D Magnesium AST ALT Alkaline Phosphatase C-Reactive Protein Total Protein Albumin Triglycerides Ur Specific [place] Urine Creatinine Crossmatch See Detail 06/24/21 06/24/21 06/24/21 11:08 16:47 21:49 WBC RBC Hgb Hct MCV MCH RDW Plt Count Lymph % (Auto) [place] % (Auto) Lymph # (Auto) [place] # (Auto) Seg Neutrophils % Seg Neuts % (Manual) Lymphocytes % (Manual) Monocytes % (Manual) Seg Neutrophils # Seg Neutrophils # Man Lymphocytes # (Manual) Monocytes # (Manual) PT INR APTT Fibrinogen D-Dimer ABG pH POC ABG pCO2 POC ABG pO2 ABG pO2 ABG HCO3 ABG O2 Saturation ABG Base Excess ABG Hemoglobin ABG Oxyhemoglobin Oxyhemoglobin Sodium Potassium Chloride Carbon Dioxide BUN Creatinine Glucose POC Glucose 153 H 201 H 132 H Lactic Acid Calcium Phosphorus Magnesium AST ALT Alkaline Phosphatase C-Reactive Protein Total Protein Albumin Triglycerides Ur Specific [place] Urine Creatinine Crossmatch 06/24/21 06/25/21 06/25/21 23:24 05:30 09:00 WBC RBC Hgb 8.3 L Hct 27.0 L MCV MCH RDW Plt Count Lymph % (Auto) [place] % (Auto) Lymph # (Auto) [place] # (Auto) Seg Neutrophils % Seg Neuts % (Manual) Lymphocytes % (Manual) Monocytes % (Manual) Seg Neutrophils # Seg Neutrophils # Man Lymphocytes # (Manual) Monocytes # (Manual) PT INR APTT Fibrinogen D-Dimer ABG pH POC ABG pCO2 POC ABG pO2 ABG pO2 ABG HCO3 ABG O2 Saturation ABG Base Excess ABG Hemoglobin ABG Oxyhemoglobin Oxyhemoglobin Sodium Potassium Chloride Carbon Dioxide BUN Creatinine Glucose POC Glucose 170 H 151 H Lactic Acid Calcium Phosphorus Magnesium AST ALT Alkaline Phosphatase C-Reactive Protein Total Protein Albumin Triglycerides Ur Specific [place] Urine Creatinine Crossmatch 06/25/21 06/25/21 06/25/21 11:29 14:24 16:48 WBC RBC Hgb 8.5 L Hct 27.5 L MCV MCH RDW Plt Count Lymph % (Auto) [place] % (Auto) Lymph # (Auto) [place] # (Auto) Seg Neutrophils % Seg Neuts % (Manual) Lymphocytes % (Manual) Monocytes % (Manual) Seg Neutrophils # Seg Neutrophils # Man Lymphocytes # (Manual) Monocytes # (Manual) PT INR APTT Fibrinogen D-Dimer ABG pH POC ABG pCO2 POC ABG pO2 ABG pO2 ABG HCO3 ABG O2 Saturation ABG Base Excess ABG Hemoglobin ABG Oxyhemoglobin Oxyhemoglobin Sodium Potassium Chloride Carbon Dioxide BUN Creatinine Glucose POC Glucose 189 H 224 H Lactic Acid Calcium Phosphorus Magnesium AST ALT Alkaline Phosphatase C-Reactive Protein Total Protein Albumin Triglycerides Ur Specific [place] Urine Creatinine Crossmatch 06/25/21 06/25/21 06/25/21 23:39 Unknown Unknown WBC 16.5 H RBC 2.90 L Hgb 8.0 L Hct 23.8 L MCV MCH RDW 22.8 H Plt Count Lymph % (Auto) [place] % (Auto) Lymph # (Auto) [place] # (Auto) Seg Neutrophils % Seg Neuts % (Manual) Lymphocytes % (Manual) Monocytes % (Manual) Seg Neutrophils # Seg Neutrophils # Man Lymphocytes # (Manual) Monocytes # (Manual) PT INR APTT Fibrinogen D-Dimer ABG pH POC ABG pCO2 POC ABG pO2 ABG pO2 ABG HCO3 ABG O2 Saturation ABG Base Excess ABG Hemoglobin ABG Oxyhemoglobin Oxyhemoglobin Sodium 149 H Potassium Chloride 115.6 H Carbon Dioxide BUN 28 H Creatinine Glucose 157 H POC Glucose 187 H Lactic Acid Calcium 8.0 L Phosphorus Magnesium AST ALT Alkaline Phosphatase C-Reactive Protein Total Protein Albumin Triglycerides Ur Specific [place] Urine Creatinine Crossmatch 06/26/21 06/26/21 06/26/21 05:22 05:29 05:29 WBC 16.2 H RBC 3.03 L Hgb 8.0 L Hct 25.1 L MCV MCH 26 L RDW 23.2 H Plt Count Lymph % (Auto) Swisher % (Auto) Lymph # (Auto) Swisher # (Auto) Seg Neutrophils % Seg Neuts % (Manual) Lymphocytes % (Manual) Monocytes % (Manual) Seg Neutrophils # Seg Neutrophils # Man Lymphocytes # (Manual) Monocytes # (Manual) PT INR APTT Fibrinogen D-Dimer ABG pH POC ABG pCO2 POC ABG pO2 ABG pO2 ABG HCO3 ABG O2 Saturation ABG Base Excess ABG Hemoglobin ABG Oxyhemoglobin Oxyhemoglobin Sodium 150 H Potassium Chloride 114.8 H Carbon Dioxide BUN 29 H Creatinine Glucose 229 H POC Glucose 211 H Lactic Acid Calcium 8.2 L Phosphorus Magnesium AST ALT Alkaline Phosphatase C-Reactive Protein Total Protein Albumin Triglycerides Ur Specific [place] Urine Creatinine Crossmatch 06/26/21 06/26/21 06/26/21 11:05 15:59 22:00 WBC RBC Hgb Hct MCV MCH RDW Plt Count Lymph % (Auto) Sw[place] % (Auto) Lymph # (Auto) [place] # (Auto) Seg Neutrophils % Seg Neuts % (Manual) Lymphocytes % (Manual) Monocytes % (Manual) Seg Neutrophils # Seg Neutrophils # Man Lymphocytes # (Manual) Monocytes # (Manual) PT INR APTT Fibrinogen D-Dimer ABG pH POC ABG pCO2 POC ABG pO2 ABG pO2 ABG HCO3 ABG O2 Saturation ABG Base Excess ABG Hemoglobin ABG Oxyhemoglobin Oxyhemoglobin Sodium Potassium Chloride Carbon Dioxide BUN Creatinine Glucose POC Glucose 213 H 222 H 161 H Lactic Acid Calcium Phosphorus Magnesium AST ALT Alkaline Phosphatase C-Reactive Protein Total Protein Albumin Triglycerides Ur Specific [place] Urine Creatinine Crossmatch 06/26/21 06/27/21 06/27/21 23:24 04:15 04:15 WBC 14.3 H RBC 2.96 L Hgb 8.1 L Hct 24.6 L MCV MCH 27 L RDW 23.0 H Plt Count Lymph % (Auto) [place] % (Auto) Lymph # (Auto) [place] # (Auto) Seg Neutrophils % Seg Neuts % (Manual) Lymphocytes % (Manual) Monocytes % (Manual) Seg Neutrophils # Seg Neutrophils # Man Lymphocytes # (Manual) Monocytes # (Manual) PT INR APTT Fibrinogen D-Dimer ABG pH POC ABG pCO2 POC ABG pO2 ABG pO2 ABG HCO3 ABG O2 Saturation ABG Base Excess ABG Hemoglobin ABG Oxyhemoglobin Oxyhemoglobin Sodium 150 H Potassium Chloride 113.8 H Carbon Dioxide BUN 26 H Creatinine Glucose 246 H POC Glucose 164 H Lactic Acid Calcium 7.8 L Phosphorus Magnesium AST ALT Alkaline Phosphatase C-Reactive Protein Total Protein Albumin Triglycerides Ur Specific [place] Urine Creatinine Crossmatch 06/27/21 06/27/21 06/27/21 05:44 11:07 16:06 WBC RBC Hgb Hct MCV MCH RDW Plt Count Lymph % (Auto) Sw[place] % (Auto) Lymph # (Auto) [place] # (Auto) Seg Neutrophils % Seg Neuts % (Manual) Lymphocytes % (Manual) Monocytes % (Manual) Seg Neutrophils # Seg Neutrophils # Man Lymphocytes # (Manual) Monocytes # (Manual) PT INR APTT Fibrinogen D-Dimer ABG pH POC ABG pCO2 POC ABG pO2 ABG pO2 ABG HCO3 ABG O2 Saturation ABG Base Excess ABG Hemoglobin ABG Oxyhemoglobin Oxyhemoglobin Sodium Potassium Chloride Carbon Dioxide BUN Creatinine Glucose POC Glucose 226 H 204 H 224 H Lactic Acid Calcium Phosphorus Magnesium AST ALT Alkaline Phosphatase C-Reactive Protein Total Protein Albumin Triglycerides Ur Specific [place] Urine Creatinine Crossmatch 06/27/21 06/28/21 06/28/21 23:49 04:00 04:00 WBC 15.4 H RBC 3.05 L Hgb 8.2 L Hct 25.0 L MCV MCH 27 L RDW 22.6 H Plt Count Lymph % (Auto) [place] % (Auto) Lymph # (Auto) [place] # (Auto) Seg Neutrophils % Seg Neuts % (Manual) Lymphocytes % (Manual) Monocytes % (Manual) Seg Neutrophils # Seg Neutrophils # Man Lymphocytes # (Manual) Monocytes # (Manual) PT INR APTT Fibrinogen D-Dimer ABG pH POC ABG pCO2 POC ABG pO2 ABG pO2 ABG HCO3 ABG O2 Saturation ABG Base Excess ABG Hemoglobin ABG Oxyhemoglobin Oxyhemoglobin Sodium 152 H Potassium 3.0 L Chloride 114.9 H Carbon Dioxide BUN 24 H Creatinine Glucose 158 H POC Glucose 195 H Lactic Acid Calcium 8.1 L Phosphorus Magnesium AST ALT Alkaline Phosphatase C-Reactive Protein Total Protein Albumin Triglycerides Ur Specific [place] Urine Creatinine Crossmatch 06/28/21 06/28/21 06/28/21 05:05 11:47 17:21 WBC RBC Hgb Hct MCV MCH RDW Plt Count Lymph % (Auto) [place] % (Auto) Lymph # (Auto) [place] # (Auto) Seg Neutrophils % Seg Neuts % (Manual) Lymphocytes % (Manual) Monocytes % (Manual) Seg Neutrophils # Seg Neutrophils # Man Lymphocytes # (Manual) Monocytes # (Manual) PT INR APTT Fibrinogen D-Dimer ABG pH POC ABG pCO2 POC ABG pO2 ABG pO2 ABG HCO3 ABG O2 Saturation ABG Base Excess ABG Hemoglobin ABG Oxyhemoglobin Oxyhemoglobin Sodium Potassium Chloride Carbon Dioxide BUN Creatinine Glucose POC Glucose 121 H 164 H 166 H Lactic Acid Calcium Phosphorus Magnesium AST ALT Alkaline Phosphatase C-Reactive Protein Total Protein Albumin Triglycerides Ur Specific [place] Urine Creatinine Crossmatch 06/28/21 06/28/21 06/29/21 18:14 21:54 00:55 WBC RBC Hgb Hct MCV MCH RDW Plt Count Lymph % (Auto) [place] % (Auto) Lymph # (Auto) [place] # (Auto) Seg Neutrophils % Seg Neuts % (Manual) Lymphocytes % (Manual) Monocytes % (Manual) Seg Neutrophils # Seg Neutrophils # Man Lymphocytes # (Manual) Monocytes # (Manual) PT INR APTT Fibrinogen D-Dimer ABG pH POC ABG pCO2 POC ABG pO2 ABG pO2 ABG HCO3 ABG O2 Saturation ABG Base Excess ABG Hemoglobin ABG Oxyhemoglobin Oxyhemoglobin Sodium Potassium Chloride Carbon Dioxide BUN Creatinine Glucose POC Glucose 150 H 148 H 176 H Lactic Acid Calcium Phosphorus Magnesium AST ALT Alkaline Phosphatase C-Reactive Protein Total Protein Albumin Triglycerides Ur Specific [place] Urine Creatinine Crossmatch 06/29/21 06/29/21 06/29/21 04:00 04:00 05:20 WBC 15.3 H RBC 3.04 L Hgb 8.0 L Hct 25.0 L MCV MCH 26 L RDW 22.3 H Plt Count Lymph % (Auto) [place] % (Auto) Lymph # (Auto) [place] # (Auto) Seg Neutrophils % Seg Neuts % (Manual) Lymphocytes % (Manual) Monocytes % (Manual) Seg Neutrophils # Seg Neutrophils # Man Lymphocytes # (Manual) Monocytes # (Manual) PT INR APTT Fibrinogen D-Dimer ABG pH POC ABG pCO2 POC ABG pO2 ABG pO2 ABG HCO3 ABG O2 Saturation ABG Base Excess ABG Hemoglobin ABG Oxyhemoglobin Oxyhemoglobin Sodium Potassium 3.1 L Chloride 108.7 H Carbon Dioxide BUN 20 H Creatinine Glucose 194 H POC Glucose 185 H Lactic Acid Calcium 8.0 L Phosphorus Magnesium AST ALT Alkaline Phosphatase C-Reactive Protein Total Protein Albumin Triglycerides Ur Specific [place] Urine Creatinine Crossmatch 06/29/21 06/29/21 06/30/21 12:18 17:20 00:49 WBC RBC Hgb Hct MCV MCH RDW Plt Count Lymph % (Auto) [place] % (Auto) Lymph # (Auto) [place] # (Auto) Seg Neutrophils % Seg Neuts % (Manual) Lymphocytes % (Manual) Monocytes % (Manual) Seg Neutrophils # Seg Neutrophils # Man Lymphocytes # (Manual) Monocytes # (Manual) PT INR APTT Fibrinogen D-Dimer ABG pH POC ABG pCO2 POC ABG pO2 ABG pO2 ABG HCO3 ABG O2 Saturation ABG Base Excess ABG Hemoglobin ABG Oxyhemoglobin Oxyhemoglobin Sodium Potassium Chloride Carbon Dioxide BUN Creatinine Glucose POC Glucose 135 H 185 H 156 H Lactic Acid Calcium Phosphorus Magnesium AST ALT Alkaline Phosphatase C-Reactive Protein Total Protein Albumin Triglycerides Ur Specific [place] Urine Creatinine Crossmatch 06/30/21 06/30/21 06/30/21 04:25 04:25 08:14 WBC 13.0 H RBC 3.19 L Hgb 8.2 L Hct 26.2 L MCV MCH 26 L RDW 22.3 H Plt Count Lymph % (Auto) [place] % (Auto) Lymph # (Auto) [place] # (Auto) Seg Neutrophils % Seg Neuts % (Manual) 81.0 H Lymphocytes % (Manual) 10.0 L Monocytes % (Manual) 8.0 H Seg Neutrophils # Seg Neutrophils # Man 10.5 H Lymphocytes # (Manual) Monocytes # (Manual) 1.0 H PT INR APTT Fibrinogen D-Dimer ABG pH POC ABG pCO2 POC ABG pO2 ABG pO2 ABG HCO3 ABG O2 Saturation ABG Base Excess ABG Hemoglobin ABG Oxyhemoglobin Oxyhemoglobin Sodium Potassium 3.0 L Chloride Carbon Dioxide BUN 20 H Creatinine Glucose 104 H POC Glucose 119 H Lactic Acid Calcium 8.3 L Phosphorus Magnesium AST ALT Alkaline Phosphatase C-Reactive Protein Total Protein Albumin Triglycerides Ur Specific [place] Urine Creatinine Crossmatch 06/30/21 06/30/21 06/30/21 11:36 16:24 22:44 WBC RBC Hgb Hct MCV MCH RDW Plt Count Lymph % (Auto) [place] % (Auto) Lymph # (Auto) [place] # (Auto) Seg Neutrophils % Seg Neuts % (Manual) Lymphocytes % (Manual) Monocytes % (Manual) Seg Neutrophils # Seg Neutrophils # Man Lymphocytes # (Manual) Monocytes # (Manual) PT INR APTT Fibrinogen D-Dimer ABG pH POC ABG pCO2 POC ABG pO2 ABG pO2 ABG HCO3 ABG O2 Saturation ABG Base Excess ABG Hemoglobin ABG Oxyhemoglobin Oxyhemoglobin Sodium Potassium Chloride Carbon Dioxide BUN Creatinine Glucose POC Glucose 154 H 208 H 174 H Lactic Acid Calcium Phosphorus Magnesium AST ALT Alkaline Phosphatase C-Reactive Protein Total Protein Albumin Triglycerides Ur Specific [place] Urine Creatinine Crossmatch 07/01/21 07/01/21 07/01/21 05:29 05:29 05:54 WBC 11.9 H RBC 3.00 L Hgb 8.1 L Hct 24.4 L MCV MCH 27 L RDW 21.7 H Plt Count Lymph % (Auto) [place] % (Auto) Lymph # (Auto) [place] # (Auto) Seg Neutrophils % Seg Neuts % (Manual) Lymphocytes % (Manual) Monocytes % (Manual) Seg Neutrophils # Seg Neutrophils # Man Lymphocytes # (Manual) Monocytes # (Manual) PT INR APTT Fibrinogen D-Dimer ABG pH POC ABG pCO2 POC ABG pO2 ABG pO2 ABG HCO3 ABG O2 Saturation ABG Base Excess ABG Hemoglobin ABG Oxyhemoglobin Oxyhemoglobin Sodium Potassium Chloride Carbon Dioxide BUN Creatinine Glucose 177 H POC Glucose 170 H Lactic Acid Calcium Phosphorus Magnesium AST ALT Alkaline Phosphatase C-Reactive Protein Total Protein Albumin Triglycerides Ur Specific [place] Urine Creatinine Crossmatch 07/01/21 07/02/21 07/02/21 10:54 05:05 10:18 WBC RBC Hgb Hct MCV MCH RDW Plt Count Lymph % (Auto) [place] % (Auto) Lymph # (Auto) [place] # (Auto) Seg Neutrophils % Seg Neuts % (Manual) Lymphocytes % (Manual) Monocytes % (Manual) Seg Neutrophils # Seg Neutrophils # Man Lymphocytes # (Manual) Monocytes # (Manual) PT INR APTT Fibrinogen D-Dimer ABG pH 7.488 H POC ABG pCO2 POC ABG pO2 ABG pO2 97.2 H ABG HCO3 27.1 H ABG O2 Saturation ABG Base Excess 3.5 H ABG Hemoglobin 7.9 L ABG Oxyhemoglobin Oxyhemoglobin Sodium Potassium Chloride Carbon Dioxide BUN Creatinine Glucose POC Glucose 184 H 182 H Lactic Acid Calcium Phosphorus Magnesium AST ALT Alkaline Phosphatase C-Reactive Protein Total Protein Albumin Triglycerides Ur Specific [place] Urine Creatinine Crossmatch 07/02/21 07/02/21 07/02/21 12:14 16:18 22:27 WBC RBC Hgb Hct MCV MCH RDW Plt Count Lymph % (Auto) [place] % (Auto) Lymph # (Auto) [place] # (Auto) Seg Neutrophils % Seg Neuts % (Manual) Lymphocytes % (Manual) Monocytes % (Manual) Seg Neutrophils # Seg Neutrophils # Man Lymphocytes # (Manual) Monocytes # (Manual) PT INR APTT Fibrinogen D-Dimer ABG pH 7.199 L* POC ABG pCO2 POC ABG pO2 ABG pO2 104.5 H ABG HCO3 30.3 H ABG O2 Saturation ABG Base Excess ABG Hemoglobin 9.8 L ABG Oxyhemoglobin Oxyhemoglobin 94.6 L Sodium Potassium Chloride Carbon Dioxide BUN Creatinine Glucose POC Glucose 184 H 194 H Lactic Acid Calcium Phosphorus Magnesium AST ALT Alkaline Phosphatase C-Reactive Protein Total Protein Albumin Triglycerides Ur Specific [place] Urine Creatinine Crossmatch 07/03/21 07/03/21 07/03/21 09:47 10:44 11:24 WBC RBC 3.01 L Hgb 8.3 L Hct 24.3 L MCV MCH RDW 21.7 H Plt Count Lymph % (Auto) 8.4 L [place] % (Auto) Lymph # (Auto) 0.8 L [place] # (Auto) Seg Neutrophils % 80.6 H Seg Neuts % (Manual) Lymphocytes % (Manual) Monocytes % (Manual) Seg Neutrophils # Seg Neutrophils # Man Lymphocytes # (Manual) Monocytes # (Manual) PT INR APTT Fibrinogen D-Dimer ABG pH POC ABG pCO2 POC ABG pO2 ABG pO2 ABG HCO3 ABG O2 Saturation ABG Base Excess ABG Hemoglobin ABG Oxyhemoglobin Oxyhemoglobin Sodium Potassium 3.0 L Chloride Carbon Dioxide BUN Creatinine Glucose 200 H POC Glucose 180 H Lactic Acid Calcium 8.3 L Phosphorus Magnesium AST ALT Alkaline Phosphatase C-Reactive Protein Total Protein Albumin Triglycerides Ur Specific [place] Urine Creatinine Crossmatch 07/03/21 07/03/21 07/03/21 16:34 22:14 22:15 WBC RBC Hgb Hct MCV MCH RDW Plt Count Lymph % (Auto) [place] % (Auto) Lymph # (Auto) [place] # (Auto) Seg Neutrophils % Seg Neuts % (Manual) Lymphocytes % (Manual) Monocytes % (Manual) Seg Neutrophils # Seg Neutrophils # Man Lymphocytes # (Manual) Monocytes # (Manual) PT INR APTT Fibrinogen D-Dimer ABG pH POC ABG pCO2 POC ABG pO2 ABG pO2 ABG HCO3 ABG O2 Saturation ABG Base Excess ABG Hemoglobin ABG Oxyhemoglobin Oxyhemoglobin Sodium Potassium Chloride Carbon Dioxide BUN Creatinine Glucose POC Glucose 165 H 174 H 180 H Lactic Acid Calcium Phosphorus Magnesium AST ALT Alkaline Phosphatase C-Reactive Protein Total Protein Albumin Triglycerides Ur Specific [place] Urine Creatinine Crossmatch 07/04/21 07/04/21 07/04/21 00:28 01:44 05:07 WBC RBC Hgb Hct MCV MCH RDW Plt Count Lymph % (Auto) [place] % (Auto) Lymph # (Auto) [place] # (Auto) Seg Neutrophils % Seg Neuts % (Manual) Lymphocytes % (Manual) Monocytes % (Manual) Seg Neutrophils # Seg Neutrophils # Man Lymphocytes # (Manual) Monocytes # (Manual) PT INR APTT Fibrinogen D-Dimer ABG pH POC ABG pCO2 POC ABG pO2 ABG pO2 107.7 H ABG HCO3 26.7 H ABG O2 Saturation ABG Base Excess ABG Hemoglobin 7.5 L ABG Oxyhemoglobin Oxyhemoglobin Sodium Potassium Chloride Carbon Dioxide BUN Creatinine Glucose POC Glucose 246 H 179 H Lactic Acid Calcium Phosphorus Magnesium AST ALT Alkaline Phosphatase C-Reactive Protein Total Protein Albumin Triglycerides Ur Specific [place] Urine Creatinine Crossmatch 07/04/21 07/04/21 07/04/21 05:13 05:13 10:52 WBC RBC 3.12 L Hgb 8.5 L Hct 25.2 L MCV MCH 27 L RDW 21.3 H Plt Count Lymph % (Auto) 6.1 L [place] % (Auto) Lymph # (Auto) 0.6 L [place] # (Auto) Seg Neutrophils % 85.0 H Seg Neuts % (Manual) Lymphocytes % (Manual) Monocytes % (Manual) Seg Neutrophils # 8.0 H Seg Neutrophils # Man Lymphocytes # (Manual) Monocytes # (Manual) PT INR APTT Fibrinogen D-Dimer ABG pH POC ABG pCO2 POC ABG pO2 ABG pO2 ABG HCO3 ABG O2 Saturation ABG Base Excess ABG Hemoglobin ABG Oxyhemoglobin Oxyhemoglobin Sodium Potassium 3.4 L Chloride Carbon Dioxide BUN Creatinine Glucose 205 H POC Glucose 146 H Lactic Acid Calcium Phosphorus Magnesium AST ALT Alkaline Phosphatase C-Reactive Protein Total Protein Albumin Triglycerides Ur Specific [place] Urine Creatinine Crossmatch 07/04/21 07/04/21 07/05/21 16:22 23:52 04:38 WBC RBC Hgb Hct MCV MCH RDW Plt Count Lymph % (Auto) [place] % (Auto) Lymph # (Auto) [place] # (Auto) Seg Neutrophils % Seg Neuts % (Manual) Lymphocytes % (Manual) Monocytes % (Manual) Seg Neutrophils # Seg Neutrophils # Man Lymphocytes # (Manual) Monocytes # (Manual) PT INR APTT Fibrinogen D-Dimer ABG pH POC ABG pCO2 POC ABG pO2 ABG pO2 ABG HCO3 ABG O2 Saturation ABG Base Excess ABG Hemoglobin ABG Oxyhemoglobin Oxyhemoglobin Sodium Potassium 3.0 L Chloride Carbon Dioxide BUN 18 H Creatinine Glucose 174 H POC Glucose 154 H 193 H Lactic Acid Calcium Phosphorus 2.20 L Magnesium AST ALT Alkaline Phosphatase C-Reactive Protein Total Protein Albumin Triglycerides Ur Specific [place] Urine Creatinine Crossmatch 07/05/21 07/05/21 07/05/21 04:38 05:15 12:35 WBC RBC 2.95 L Hgb 7.8 L Hct 23.9 L MCV MCH 27 L RDW 21.0 H Plt Count Lymph % (Auto) [place] % (Auto) Lymph # (Auto) [place] # (Auto) Seg Neutrophils % Seg Neuts % (Manual) Lymphocytes % (Manual) Monocytes % (Manual) Seg Neutrophils # Seg Neutrophils # Man Lymphocytes # (Manual) Monocytes # (Manual) PT INR APTT Fibrinogen D-Dimer ABG pH POC ABG pCO2 POC ABG pO2 ABG pO2 ABG HCO3 ABG O2 Saturation ABG Base Excess ABG Hemoglobin ABG Oxyhemoglobin Oxyhemoglobin Sodium Potassium Chloride Carbon Dioxide BUN Creatinine Glucose POC Glucose 163 H 121 H Lactic Acid Calcium Phosphorus Magnesium AST ALT Alkaline Phosphatase C-Reactive Protein Total Protein Albumin Triglycerides Ur Specific [place] Urine Creatinine Crossmatch 07/05/21 07/05/21 07/05/21 18:27 21:05 23:11 WBC RBC Hgb Hct MCV MCH RDW Plt Count Lymph % (Auto) [place] % (Auto) Lymph # (Auto) [place] # (Auto) Seg Neutrophils % Seg Neuts % (Manual) Lymphocytes % (Manual) Monocytes % (Manual) Seg Neutrophils # Seg Neutrophils # Man Lymphocytes # (Manual) Monocytes # (Manual) PT INR APTT Fibrinogen D-Dimer ABG pH POC ABG pCO2 POC ABG pO2 ABG pO2 ABG HCO3 ABG O2 Saturation ABG Base Excess ABG Hemoglobin ABG Oxyhemoglobin Oxyhemoglobin Sodium Potassium Chloride Carbon Dioxide BUN Creatinine Glucose POC Glucose 183 H 170 H 184 H Lactic Acid Calcium Phosphorus Magnesium AST ALT Alkaline Phosphatase C-Reactive Protein Total Protein Albumin Triglycerides Ur Specific [place] Urine Creatinine Crossmatch 07/06/21 07/06/21 07/06/21 04:39 05:13 12:12 WBC RBC Hgb Hct MCV MCH RDW Plt Count Lymph % (Auto) [place] % (Auto) Lymph # (Auto) [place] # (Auto) Seg Neutrophils % Seg Neuts % (Manual) Lymphocytes % (Manual) Monocytes % (Manual) Seg Neutrophils # Seg Neutrophils # Man Lymphocytes # (Manual) Monocytes # (Manual) PT INR APTT Fibrinogen D-Dimer ABG pH POC ABG pCO2 POC ABG pO2 ABG pO2 ABG HCO3 ABG O2 Saturation ABG Base Excess ABG Hemoglobin ABG Oxyhemoglobin Oxyhemoglobin Sodium Potassium 3.4 L Chloride Carbon Dioxide BUN Creatinine Glucose 180 H POC Glucose 183 H 153 H Lactic Acid Calcium Phosphorus Magnesium AST ALT Alkaline Phosphatase C-Reactive Protein Total Protein Albumin Triglycerides Ur Specific [place] Urine Creatinine Crossmatch 07/06/21 07/06/21 07/07/21 17:30 21:44 00:22 WBC RBC Hgb Hct MCV MCH RDW Plt Count Lymph % (Auto) [place] % (Auto) Lymph # (Auto) [place] # (Auto) Seg Neutrophils % Seg Neuts % (Manual) Lymphocytes % (Manual) Monocytes % (Manual) Seg Neutrophils # Seg Neutrophils # Man Lymphocytes # (Manual) Monocytes # (Manual) PT INR APTT Fibrinogen D-Dimer ABG pH POC ABG pCO2 POC ABG pO2 ABG pO2 ABG HCO3 ABG O2 Saturation ABG Base Excess ABG Hemoglobin ABG Oxyhemoglobin Oxyhemoglobin Sodium Potassium Chloride Carbon Dioxide BUN Creatinine Glucose POC Glucose 166 H 155 H 188 H Lactic Acid Calcium Phosphorus Magnesium AST ALT Alkaline Phosphatase C-Reactive Protein Total Protein Albumin Triglycerides Ur Specific [place] Urine Creatinine Crossmatch 07/07/21 07/07/21 07/07/21 04:10 05:48 07:39 WBC RBC Hgb Hct MCV MCH RDW Plt Count Lymph % (Auto) [place] % (Auto) Lymph # (Auto) [place] # (Auto) Seg Neutrophils % Seg Neuts % (Manual) Lymphocytes % (Manual) Monocytes % (Manual) Seg Neutrophils # Seg Neutrophils # Man Lymphocytes # (Manual) Monocytes # (Manual) PT INR APTT Fibrinogen D-Dimer ABG pH POC ABG pCO2 POC ABG pO2 ABG pO2 ABG HCO3 ABG O2 Saturation ABG Base Excess ABG Hemoglobin ABG Oxyhemoglobin Oxyhemoglobin Sodium Potassium 3.1 L Chloride Carbon Dioxide BUN Creatinine Glucose 138 H POC Glucose 141 H 147 H Lactic Acid Calcium Phosphorus 2.40 L Magnesium AST ALT Alkaline Phosphatase C-Reactive Protein Total Protein Albumin Triglycerides Ur Specific [place] Urine Creatinine Crossmatch 07/07/21 07/07/21 07/07/21 11:17 16:06 23:58 WBC RBC Hgb Hct MCV MCH RDW Plt Count Lymph % (Auto) [place] % (Auto) Lymph # (Auto) [place] # (Auto) Seg Neutrophils % Seg Neuts % (Manual) Lymphocytes % (Manual) Monocytes % (Manual) Seg Neutrophils # Seg Neutrophils # Man Lymphocytes # (Manual) Monocytes # (Manual) PT INR APTT Fibrinogen D-Dimer ABG pH POC ABG pCO2 POC ABG pO2 ABG pO2 ABG HCO3 ABG O2 Saturation ABG Base Excess ABG Hemoglobin ABG Oxyhemoglobin Oxyhemoglobin Sodium Potassium Chloride Carbon Dioxide BUN Creatinine Glucose POC Glucose 161 H 173 H 198 H Lactic Acid Calcium Phosphorus Magnesium AST ALT Alkaline Phosphatase C-Reactive Protein Total Protein Albumin Triglycerides Ur Specific [place] Urine Creatinine Crossmatch 07/08/21 07/08/21 07/08/21 04:20 04:20 06:12 WBC RBC 3.16 L Hgb 8.3 L Hct 25.1 L MCV MCH 26 L RDW 21.0 H Plt Count Lymph % (Auto) [place] % (Auto) Lymph # (Auto) [place] # (Auto) Seg Neutrophils % Seg Neuts % (Manual) Lymphocytes % (Manual) Monocytes % (Manual) Seg Neutrophils # Seg Neutrophils # Man Lymphocytes # (Manual) Monocytes # (Manual) PT INR APTT Fibrinogen D-Dimer ABG pH POC ABG pCO2 POC ABG pO2 ABG pO2 ABG HCO3 ABG O2 Saturation ABG Base Excess ABG Hemoglobin ABG Oxyhemoglobin Oxyhemoglobin Sodium Potassium Chloride Carbon Dioxide BUN Creatinine Glucose 183 H POC Glucose 189 H Lactic Acid Calcium Phosphorus Magnesium AST ALT Alkaline Phosphatase C-Reactive Protein Total Protein Albumin Triglycerides Ur Specific [place] Urine Creatinine Crossmatch 07/08/21 07/08/21 07/08/21 11:33 18:04 21:42 WBC RBC Hgb Hct MCV MCH RDW Plt Count Lymph % (Auto) [place] % (Auto) Lymph # (Auto) [place] # (Auto) Seg Neutrophils % Seg Neuts % (Manual) Lymphocytes % (Manual) Monocytes % (Manual) Seg Neutrophils # Seg Neutrophils # Man Lymphocytes # (Manual) Monocytes # (Manual) PT INR APTT Fibrinogen D-Dimer ABG pH POC ABG pCO2 POC ABG pO2 ABG pO2 ABG HCO3 ABG O2 Saturation ABG Base Excess ABG Hemoglobin ABG Oxyhemoglobin Oxyhemoglobin Sodium Potassium Chloride Carbon Dioxide BUN Creatinine Glucose POC Glucose 161 H 128 H 160 H Lactic Acid Calcium Phosphorus Magnesium AST ALT Alkaline Phosphatase C-Reactive Protein Total Protein Albumin Triglycerides Ur Specific [place] Urine Creatinine Crossmatch 07/09/21 07/09/21 07/09/21 06:03 06:10 06:10 WBC RBC 2.96 L Hgb 7.8 L Hct 23.5 L MCV MCH 27 L RDW 20.9 H Plt Count Lymph % (Auto) [place] % (Auto) Lymph # (Auto) [place] # (Auto) Seg Neutrophils % Seg Neuts % (Manual) Lymphocytes % (Manual) Monocytes % (Manual) Seg Neutrophils # Seg Neutrophils # Man Lymphocytes # (Manual) Monocytes # (Manual) PT INR APTT Fibrinogen D-Dimer ABG pH POC ABG pCO2 POC ABG pO2 ABG pO2 ABG HCO3 ABG O2 Saturation ABG Base Excess ABG Hemoglobin ABG Oxyhemoglobin Oxyhemoglobin Sodium Potassium Chloride Carbon Dioxide BUN Creatinine Glucose 168 H POC Glucose 174 H Lactic Acid Calcium 8.2 L Phosphorus Magnesium AST ALT Alkaline Phosphatase C-Reactive Protein Total Protein Albumin Triglycerides Ur Specific [place] Urine Creatinine Crossmatch
--- NOTE | 2021-07-09 12:59 | Progress Note ---
Assessment and Plan Cultures: 06/12/2021 blood cultures: no growth A/P: 76-year-old female with diabetes, hypertension, gout was admitted to the hospital on 06/11/2021 with swelling of the submandibular region, tongue and difficulty breathing, labs also revealed severe coagulopathy due to Coumadin. 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 Shock resolved. s/p tracheostomy and PEG tube placement 06/19/2021. #Acute respiratory failure: s/p trach #Right-sided pneumothorax: s/p chest tube. #Diabetes mellitus, uncontrolled #Coagulopathy: Secondary to Coumadin. #Acute blood loss anemia Recs: -Completed Zosyn -Pending placement Sinai Small MD [facility] ([facility]) O: [phone] F: [phone] Subjective Date of service: 07/09/21 Interval history: Afebrile, normal white count. Trach exchange yesterday. Objective - Exam Narrative Exam: Physical Exam: Constitutional: Awake, on T-piece Head, Ears, Nose: Normocephalic, atraumatic. External ears, nose normal Eyes: Conjunctivae/corneas clear. No icterus. No ptosis. Oral: trach Cardiovascular: S1, S2 + Respiratory: AE reduced, right-sided chest tube. GI: Soft, bowel sounds +, PEG + Musculoskeletal: No pedal edema, no cyanosis. Skin: No rash or abscess Hem/Lymphatic: No palpable cervical or supraclavicular nodes. No lymphangitis Psych: no agitation Neurological: on t-piece examined. - Constitutional Vitals: Vital Signs Temp Pulse Resp BP Pulse Ox 99.1 F 87 17 129/80 97 07/09/21 04:00 07/09/21 12:30 07/09/21 12:30 07/09/21 12:30 07/09/21 12:30 Temperature -Last 24 Hours Temperature 99.1 F Temperature 98.8 F Temperature 98.2 F Temperature 99.3 F - Labs CBC & Chem 7: 07/09/21 06:10 07/09/21 06:10 Labs: Abnormal lab results 03/11/2207/08/21 07/09/21 Range/Units 18:04 21:42 06:03 RBC (3.65-5.03) M/mm3 Hgb (10.1-14.3) gm/dl Hct (30.3-42.9) % MCH (28-32) pg RDW (13.2-15.2) % Glucose (65-100) mg/dL POC Glucose 128 H 160 H 174 H (70-105) mg/dL Calcium (8.4-10.2) mg/dL 07/09/21 07/09/21 07/09/21 Range/Units 06:10 06:10 11:45 RBC 2.96 L (3.65-5.03) M/mm3 Hgb 7.8 L (10.1-14.3) gm/dl Hct 23.5 L (30.3-42.9) % MCH 27 L (28-32) pg RDW 20.9 H (13.2-15.2) % Glucose 168 H (65-100) mg/dL POC Glucose 148 H (70-105) mg/dL Calcium 8.2 L (8.4-10.2) mg/dL
--- NOTE | 2021-07-09 14:05 | Post Anesthesia Evaluation ---
- Post Anesthesia Evaluation Patient Participated: Yes Airway Patent: Yes Stable Respiratory Function: Yes Nausea/Vomiting: No Temp > 96.8F: Yes Pain Manageable: Yes Adequeate Hydration: Yes Anesthesia Complications: No Block Receding Appropriately: Not Applicable Patient on Ventilator: Yes
--- NOTE | 2021-07-09 14:06 | Progress Note ---
Assessment and Plan Assessment and plan: Assessment and plan: This is a 76-year-old female with HTN, Coumadin use, dental caries, PVD s/p stenting to right leg, DM, arthritis, depression, gout and ? Pulmonary hypertension admitted with Jeremiah's angina s/p emergent cric with bleeding, right sided pneumothorax, supratherapeutic INR, hypernatremia, hyperchloremia, severe metabolic acidosis, hyperglycemia and hypocalcemia Neuro: Acute pain, r/o myasthenia gravis, h/o depression, arthritis -prn fent pushes -Avoid delirium -Reorientation as needed -Maintain sleep-wake cycle -PT consulted; recommends LTAC -Neurology consulted, appreciate recommendations -B12, A1c, CK, TSH pending -MRI brain to rule out bleeding and old watershed infarct -gabapentin Cardiac: S/p cardiac arrest, h/o htn, PVD s/p stenting Right leg -06/14 cardiac arrest with ROSC -S/p vasopressor support with Levophed and Fabian-Synephrine -Blood pressure monitoring per protocol -Antihypertensive regimen: Hydralazine 100 mg every 8 -06/13 Echocardiogram EF 65-70% Respiratory: Acute hypoxic respiratory failure, right pneumothorax -CCM consulted, appreciate recommendations -S/p emergent cricothyroidectomy with surgery with 8.00 ETT -s/p trach 06/19 with surgery s/p #10 Shiley -07/08 Shiley downsized to #8 -T-piece trials started 06/26 -ST: Unable to tolerate Passy-Ann valve on 06/28 but has since tolerated 10 min -misplaced PSMV during transport and awaiting replacement -s/p Right chest tube removed 06/29 -06/13 bronchoscopy showed possible blood clot in left lung which may be acting as mucous plug however it was left in place due to possible bleeding inside lung if removed. -CXR post cardiac arrest shows clearance of mucous plug -06/16 CT chest shows moderate right pneumothorax with collapse of right upper lobe, right thoracostomy tube terminates at the collapsed right upper lobe, bilateral bronchus opacities compatible with infectious/inflammatory etiology, bilateral small pleural effusion, extensive subcutaneous air, small fluid co llection in the anterior mediastinum is nonspecific -VAP bundle -SPO2 monitoring GI: Protein calorie malnutrition -24 hours -1545 mL -PPI -BR: senna, colace -s/p TPN -Nutrition consult for tube feeding -S/p PEG : Urinary retention, acute kidney injury possibly secondary to vasomotor nephropathy (resolved) -Strict intake and output -Renally dose medications -Avoid nephrotoxic medications -Daily weights -Consider nephrology consult if worsens -S/p 7 L LR bolus -Replete potassium -Lujan catheter replaced due to urinary retention ID: 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 dental caries -CT neck with contrast showed a significant right floor of mild swelling with extension into the submandibular and submental spaces, significant thickening and inflammation involving the right pharyngeal wall, with the parapharyngeal and retropharyngeal spaces at the level of the thyroid cartilage, epiglottis si gnificantly swollen and so are the aryepiglottic folds resulting in significant airway narrowing at this level, no lymphadenopathy, symmetric submandibular and parathyroid glands, S few scattered caries but no periapical lucencies, nonspecific calcification along the right lateral oropharynx, no definite stone seen within the territory of the submandibular gland ducts, no suspicious rashes lesion -Infectious disease and general surgery consulted, appreciate recommendations -s/p cricothyroidectomy -Will follow surgery to direction and treatment of injury -Per surgery may have mucosal injury -Intra-Op findings include post pharyngeal swelling and bruising -s/p Solu-Medrol -Per ID: if leucocytosis persists after being off steroids, obtain CT neck with IV contrast to rule out any abscess -Antibiotic therapy Zosyn x 21 days completed -COVID-19 PCR negative -f/u blood culture -Monitor WBC and temperature curve -s/p 5L normal saline bolus in ED, 7 L LR bolus in ICU Heme: Coagulopathy (resolved), supratherapeutic INR (resolved), acute blood loss anemia (resolved), possible component of hemorrhagic shock (resolved), leukocytosis (resolved) -Patient is on Coumadin at home -S/p 5 FFP, 8 PRBC, vitamin K x3 -Trend CBC -Presented with H/H of 10.3/34.6 and decreased to 6.7/22.4 -INR 8.18-> 4.55-> 2.1-> 1.23-> 1.16-> 1.31 -Transfuse hemoglobin less than 7 -Lovenox subq (prophylactic) -Monitor for signs of bleeding -SCDs to BLE while in bed Endo: h/o DM, gout -S/p Lantus 25 units x 1 -Lantus subcu, titrate as needed -Avoid hypoglycemia -SSI -Accu-Cheks q. 6hr The high probability of a clinically significant, sudden or life threatening deterioration of the [multi] system(s) required my full and direct attention, intervention and personal management. The aggregate critical care time was [60] minutes. This time is in addition to time spent performing reported procedures but includes the following: [x] Data Review and interpretation [x] Patient assessment and monitoring of vital signs [x] Documentation [x] Medication orders and management Disposition Plan: IMCU Total Time Spent with Patient (Minutes): 60 History Interval history: Interval history: This is a 76-year-old female with HTN, Coumadin use , dental caries, PVD s/p stenting right leg, DM, arthritis, depression, gout, and ? Pulmonary hypertension who presented to emergency department on 06/11 with complaints of pain to mandible area and throat and swelling. Work-up in the emergency department included CT scan of the head and neck which showed findings consistent with Jeremiah's angina and anesthesia was called for intubation. Anesthesia intubation attempts were unsuccessful and surgery was consulted for cricothyroidotomy which was unsuccessful in the emergency department and patient was taken to the OR for tracheostomy. Intubation procedure was complicated by development of pneumothorax and excessive bleeding. Patient given multiple FFP's and vitamin K several times who attempts to decrease INR. Lab work showed leukocytosis, supratherapeutic INR, hypernatremia, hyperchloremia, severe metabolic acidosis, hyperglycemia, hypocalcemia. Patient was admitted to the hospitalist service with consults to [facility], general surgery, infectious disease. Hospital course to date: 06/12: Patient received additional 2 units FFP and 1 unit PRBC and vitamin K today. Overnight critical care placed a femoral CVL. Patient sedated on fentanyl, propofol and Versed. Currently on Fabian-Synephrine and Levophed for blood pressure maintenance. Remains amatory support. Infectious disease consulted. Started on sliding scale insulin and recultured. COVID-19 PCR pending. Surgery at bedside to place chest tube. 06/13: Patient was taken back to the OR today for exchange cricothyroid to possible tracheostomy. Patient returned with ETT. Chest tube was changed to larger size in the OR. Patient was hypotensive, tachycardic, hypoxic in the OR and received hespan, albumin and an A-line. Upon arrival patient was increased to max dose Levophed for hypotension which has resolved. Titrating vasopressors as tolerated. Remains on sedation with 3 agents. Apparently patient was not ventilating her left lung Intra-Op. Noted to have subcu hematoma and trauma to postpharyngeal area. Questionable decrease cardiac wall motion noted in OR-> will order echocardiogram to further investigate. Patient received additional PRBC today. DIC panel resulted as normal. Patient BUN/creatinine did increase as well as noted to have lactic acidosis. May need IV bolus in addition to pressor use. Likely bronc with Pulmicort today as repeat CXR showed right possible pneumo hydrothorax 06/14: Antibiotics changed to Zosyn per ID, surgical packing removed from neck and makeshift Faith drain placed by surgery and old chronic thyroidectomy site. CXR was completed and RN heard gurgling and blood was noted on dressing. ST elevation noted on bedside monitor and patient was hypoxic. FiO2 increased to 100%. However shortly after patient lost her pulse and ACLS was initiated. Patient received 3 rounds of epinephrine and ROSC was achieved. Stat portable CXR showed resolution of lower lobe collapse on the left and stable right-sided chest tube with hemothorax. CCM updated family. Patient H/H noted to be 7.2/23.2 and did RN to transfuse prepared PRBC which [facility] blood bank. Bedside echo completed. 06/15: Off sedation, intermittently follows commands, remains on the prednisone. Surgery will reassess airway on Thursday to see if any further support is required. Urine studies indicate prerenal, given IV bolus and started on Clinimix today. 06/16: Patient restarted on fentanyl drip due to hypertension. Given more LR due to CR improvement post LR yesterday. Patient started on Lantus subcu after given one-time dose of Lantus. PICC placed today. Patient had a CT chest today which showed no mediasinusitis but extensive subcutaneous air. 06/17: General Surgery recommended transferring patient to a ENT specialized facility. Placed a call to [facility], spoke with the intensi vist, Dr. Duckworth, who stated that a transfer is possible as long their ENT team accept the patient. Awaiting on a final response. Continue current supportive measures. Basal insulin adjusted for hyperglycemia. 06/18: JEREMIAS overnight. Hypertensive this am, PRN Hydralazine for SBP greater than 160. Remains hyperglycemic, patient is on IV steroids and TPN, basal insulin adjusted. Plan for possible transfer to [place] once an ICU bed is available. 06/19: Low SPO2 and hypotension overnight required Levophed for a short time. Overnight CXR noted with no significant changed. Patient is stable this am and off pressors. Plan for possible Trach and PEG today by General Surgery. 06/20: s/p Trach and PEG. Some bleeding overnight s/p X1 dose of Vitamin K. The bleeding resolved this am, H&H remains stable. Attempted a SAT this am, patient went into SVT, HR in the 160-170 which resolved once sedations were resumed. Plan is to continue to sedation for now, attempt to wean off propofol for a RASS goal of 0 to -2. D/C CCM plan is to wean off sedation as tolerated for PST for possible extubation. Okay to use PEGT per Gen. Surgery. Nutrition consulted for TF management, TF to start tonight once current TPN bag is completed. BG remains elevated, continue current SSI and basal for now, will start tapering IV steroids tomorrow. FWF added for hyponatremia. Wean off pressors as tolerated for MAP above 65. Possible transfer to [place] for ENT eval. 06/21: Overnight events and CXR noted. Worsen subcutaneous emphysema and Rt. Pneumo. CT remains in place and intact to cont. wall suction. Patient remains hemodynamically stable, still on low vent setting. will continue to monitor for now. Patient is also tolerating enteral nutrition via PEGT, TPN D/benjamín. H&H is also trending down, no s/s of any active bleeding. Will continue to trend H&H, transfuse if hgb is less than 7. FWF increased for hypernatremia. Still waiting on possible transfer to [place]. 06/22: JEREMIAS overnight. Subcutaneous emphysema is unchanged. CXR with mild improvement. Patient remains hemodynamically stable. Hydralazine added Q8hr for HTN. FWF increased for hypernatremia. Awaiting transfer to [place] for ENT eval. 06/23: Over 70cc from CT overnight, subcutaneous emphysema with mild improvement. Patient is also tolerating PST this am. Repeat CXR in the am. Patient is still hypertensive, will added norvasc for better control. Continue FWF for hypernatremia and electrolytes replacement as needed, repeat labs in the am. Darin in wbcs this am, patient remains afebrile and on IV Abx, most likely due to IV steroids continue to monitor. Continue to taper IV steroids. Hyperglycemia is also improving, continue current SSI and basal for now. 06/24: Patient is anemic today and transfused 1 unit PRBC, hypokalemia and hypophosphatemia repleted, will continue every 6 H/H for now to monitor for bleeding, steroid taper continues, still awaiting transfer to [place], PT/OT consulted, CCM to talk to case management regarding LTAC transfer. 06/25: Patient responded appropriately to yesterday, placed on pressure support trial today. Per CCM hopefully T-piece in the next 24 to 48 hours and will continue decrease steroids further on . Lujan catheter removed today. 06/26: Patient started T-piece trials, H/H remained stable. Surgery plans to remove chest tube once weaned off ventilator. Increasing her water flush given hypernatremia. 06/27: Chest tube placed to waterseal, T-piece trial trials ongoing. Remains on Zosyn and steroids being tapered. Increasing free water flush, insulin and added 3 times daily insulin. 06/28: Hypernatremia persists, started on D5W for 1 L, replace potassium. Chest tube remains to waterseal. 06/29: Chest tube removed by surgery today, hyponatremia better and dextrose discontinued, hypokalemia noted which was repleted. Speech did see but patient had decreased voice quality and increased wob so aborted 06/30: Hypokalemia noted on labs will be repleted, leukocytosis continues to improve. Continues on T-piece trials and is following commands. 07/01: Transfer from ICU on 06/30. Patient was stable with a trach and T-piece on 5 L. Tolerating tube feeds. 07/02: Patient remains on T-piece with trach in place. On 5 L of O2. She is alert and responds appropriately but not well due to trach tube. Tolerating tube feeds. Appears comfortable. No complaints. No new events reported. Case management reports patient with plans for LTAC placement. 07/03: Patient remains on T-piece with trach in place. On 5 L of O2. Patient tolerating tube feeds. We will check CT of head, neck and chest per pulmonary and general surgery recommendations based on CBC this morning. If leukocytosis persists we will proceed with studies. Patient remains afebrile today. 07/04: s/p X1 dose of IV lasix, patient is now stable on the T-piece via trach at 28% and 5L. Patient remains afebrile, leukocytosis improved, and CXR wiht no significant change. PRN [place] added for pain management. Electrolytes repleted 07/05: Remains stable on T-piece. Complaint of lack of sleep and tiredness this am, Trazadone and melatonin added for sleep. Continue PT- increase mobility and possibly OOB to chair today. Continue pain management. Electrolytes repleted. 07/06: Rested overnight. And continue to tolerate T-piece at 28% and 5L. Continue trazadone and melatonin at night for sleep and pain control with PRN analgesia. Discussed possibility of down sizing the trach to an 8 Shiley with General Surgery. Per Surgery downsizing would not be easy nor safe at this time. Plan to order #10 PSMV instead. Case management to arrange possible placement SNF vs subacute rehab. 07/07: JEREMIAS overnight. New report of BLE pain and swelling, per patient was on gabapentin and smooth muscle relaxers at home. BLE did appear swollen with palpable pedal pulses. Will get BLE doppler, resume gabapentin, and continue PRN analgesic for pain control. Continue mobility/strenght and conditioning with PT. Electrolytes repleted, repeat labs in the am. 07/08: Patient scheduled to have a downsize of Shiley today in the OR with surger y, surgery also requested neurology consult for MS work-up. Lidocaine patches to bilateral lower extremities discontinued. 07/09: Transfer to [facility]. s/p trach downsize by halle. Will need aggressive P T/OT/ST. Possible eval by ST for MPV. Placement now of concern. Will continue coordination with CM. Neuro: doubt MG. suspects myopathy likely ICU acquired from prolongued immobilization. Again she will require aggressive PT rehab. Hospitalist Physical - Physical exam Narrative exam: - General Apperance Constitutional: comfortable - EENT EENT: PERRL, mucous membranes moist - Respiratory Respiratory: lungs clear, rhonchi - Cardiovascular Cardiovascular: regular rate, normal S1, normal S2 Extremities: no peripheral edema bilat, no clubbing, cyanosis - Gastrointestinal Gastrointestinal: normoactive bowel sounds - Integumentary Integumentary: normal - Neurologic Cranial nerve examination: PERRL, EOMI, intact Speech examination: other (tracheostomy tube, no aphasia) Detailed motor examination: other (Bilateral proximal motor weakness upper> Lower, suppressed reflexes, no cranial weakness is noted neck muscles are intact) Motor examination - right side: 05/08: biceps - Constitutional Vitals: Temp Pulse Resp BP Pulse Ox 98.8 F 90 24 133/79 100 07/09/21 12:00 07/09/21 13:01 07/09/21 13:01 07/09/21 13:01 07/09/21 13:01 General appearance: Present: no acute distress, obese (Morbidly obese), other (On T-piece with trach in place.) HEART Score - HEART Score Troponin: Troponin T < 0.010 ng/mL (0.00-0.029) 06/11/21 23:21 Results - Labs CBC & Chem 7: 07/09/21 06:10 07/09/21 06:10 Labs: Laboratory Last Values WBC 5.2 K/mm3 (4.5-11.0) 07/09/21 06:10 RBC 2.96 M/mm3 (3.65-5.03) L 07/09/21 06:10 Hgb 7.8 gm/dl (10.1-14.3) L 07/09/21 06:10 Hct 23.5 % (30.3-42.9) L 07/09/21 06:10 MCV 79 fl (79-97) 07/09/21 06:10 MCH 27 pg (28-32) L 07/09/21 06:10 MCHC 33 % (30-34) 07/09/21 06:10 RDW 20.9 % (13.2-15.2) H 07/09/21 06:10 Plt Count 307 K/mm3 (140-440) 07/09/21 06:10 Lymph % (Auto) 6.1 % (13.4-35.0) L 07/04/21 05:13 Coffee % (Auto) 6.6 % (0.0-7.3) 07/04/21 05:13 Eos % (Auto) 1.8 % (0.0-4.3) 07/04/21 05:13 Baso % (Auto) 0.5 % (0.0-1.8) 07/04/21 05:13 Lymph # (Auto) 0.6 K/mm3 (1.2-5.4) L 07/04/21 05:13 Coffee # (Auto) 0.6 K/mm3 (0.0-0.8) 07/04/21 05:13 Eos # (Auto) 0.2 K/mm3 (0.0-0.4) 07/04/21 05:13 Baso # (Auto) 0.0 K/mm3 (0.0-0.1) 07/04/21 05:13 Add Manual Diff Complete 06/30/21 04:25 Total Counted 100 06/30/21 04:25 Seg Neutrophils % 85.0 % (40.0-70.0) H 07/04/21 05:13 Seg Neuts % (Manual) 81.0 % (40.0-70.0) H 06/30/21 04:25 Band Neutrophils % 0 % 06/30/21 04:25 Lymphocytes % (Manual) 10.0 % (13.4-35.0) L 06/30/21 04:25 Reactive Lymphs % (Man) 0 % 06/30/21 04:25 Monocytes % (Manual) 8.0 % (0.0-7.3) H 06/30/21 04:25 Eosinophils % (Manual) 1.0 % (0.0-4.3) 06/30/21 04:25 Basophils % (Manual) 0 % (0.0-1.8) 06/30/21 04:25 Metamyelocytes % 0 % 06/30/21 04:25 Myelocytes % 0 % 06/30/21 04:25 Promyelocytes % 0 % 06/30/21 04:25 Blast Cells % 0 % 06/30/21 04:25 Nucleated RBC % Not Reportable 06/30/21 04:25 Seg Neutrophils # 8.0 K/mm3 (1.8-7.7) H 07/04/21 05:13 Seg Neutrophils # Man 10.5 K/mm3 (1.8-7.7) H 06/30/21 04:25 Band Neutrophils # 0.0 K/mm3 06/30/21 04:25 Lymphocytes # (Manual) 1.3 K/mm3 (1.2-5.4) 06/30/21 04:25 Abs React Lymphs (Man) 0.0 K/mm3 06/30/21 04:25 Monocytes # (Manual) 1.0 K/mm3 (0.0-0.8) H 06/30/21 04:25 Eosinophils # (Manual) 0.1 K/mm3 (0.0-0.4) 06/30/21 04:25 Basophils # (Manual) 0.0 K/mm3 (0.0-0.1) 06/30/21 04:25 Metamyelocytes # 0.0 K/mm3 06/30/21 04:25 Myelocytes # 0.0 K/mm3 06/30/21 04:25 Promyelocytes # 0.0 K/mm3 06/30/21 04:25 Blast Cells # 0.0 K/mm3 06/30/21 04:25 WBC Morphology Not Reportable 06/30/21 04:25 Hypersegmented Neuts Not Reportable 06/30/21 04:25 Hyposegmented Neuts Not Reportable 06/30/21 04:25 Hypogranular Neuts Not Reportable 06/30/21 04:25 Smudge Cells Not Reportable 06/30/21 04:25 Toxic Granulation Not Reportable 06/30/21 04:25 Toxic Vacuolation Not Reportable 06/30/21 04:25 Dohle Bodies Not Reportable 06/30/21 04:25 Pelger-Huet Anomaly Not Reportable 06/30/21 04:25 Dennis Rods Not Reportable 06/30/21 04:25 Platelet Estimate Consistent w auto 06/30/21 04:25 Clumped Platelets Not Reportable 06/30/21 04:25 Plt Clumps, EDTA Not Reportable 06/30/21 04:25 Large Platelets Few 06/30/21 04:25 Giant Platelets Not Reportable 06/30/21 04:25 Platelet Satelliting Not Reportable 06/30/21 04:25 Plt Morphology Comment Not Reportable 06/30/21 04:25 RBC Morphology Not Reportable 06/30/21 04:25 Dimorphic RBCs Not Reportable 06/30/21 04:25 Polychromasia Rare 06/30/21 04:25 Hypochromasia 1+ 06/30/21 04:25 Poikilocytosis Not Reportable 06/30/21 04:25 Anisocytosis 1+ 06/30/21 04:25 Microcytosis Not Reportable 06/30/21 04:25 Macrocytosis Not Reportable 06/30/21 04:25 Spherocytes Not Reportable 06/30/21 04:25 Pappenheimer Bodies Not Reportable 06/30/21 04:25 Sickle Cells Not Reportable 06/30/21 04:25 Target Cells Rare 06/30/21 04:25 Tear Drop Cells Few 06/30/21 04:25 Ovalocytes Not Reportable 06/30/21 04:25 Stomatocytes Few 06/12/21 01:45 Helmet Cells Not Reportable 06/30/21 04:25 [place] Bodies Not Reportable 06/30/21 04:25 [place] Rings Not Reportable 06/30/21 04:25 [place] Cells Not Reportable 06/30/21 04:25 Bite Cells Not Reportable 06/30/21 04:25 Crenated Cell Not Reportable 06/30/21 04:25 Elliptocytes Not Reportable 06/30/21 04:25 Acanthocytes (Spur) Not Reportable 06/30/21 04:25 Rouleaux Not Reportable 06/30/21 04:25 Hemoglobin C Crystals Not Reportable 06/30/21 04:25 Schistocytes Not Reportable 06/30/21 04:25 Malaria parasites Not Reportable 06/30/21 04:25 Edin Bodies Not Reportable 06/30/21 04:25 Hem Pathologist Commnt No 06/30/21 04:25 PT 18.3 Sec. (12.2-14.9) H 06/20/21 04:33 INR 1.37 (0.87-1.13) H 06/20/21 04:33 APTT 26.4 Sec. (24.2-36.6) 06/13/21 Unknown Fibrinogen 546 mg/dl (211-480) H 06/13/21 Unknown D-Dimer 1244.63 ng/mlDDU (0-234) H 06/13/21 Unknown ABG pH 7.448 pH Units (7.350-7.450) 07/04/21 01:44 POC ABG pCO2 25.6 mmHg (32.0-48.0) L 06/13/21 04:31 ABG pCO2 39.5 mm Hg 07/04/21 01:44 POC ABG pO2 138.8 mmHg (83-108) H 06/13/21 04:31 ABG pO2 107.7 mm Hg (80.0-90.0) H 07/04/21 01:44 POC ABG HCO3 21.4 06/13/21 04:31 ABG HCO3 26.7 mmol/L (20.0-26.0) H 07/04/21 01:44 ABG O2 Saturation 98.0 % (95.0-99.0) 07/04/21 01:44 ABG O2 Content 10.3 (0.0-44) 07/04/21 01:44 POC ABG Base Excess -0.7 06/13/21 04:31 ABG Base Excess 2.5 mmol/L (-2.0-3.0) 07/04/21 01:44 ABG Hemoglobin 7.5 gm/dl (12.0-16.0) L 07/04/21 01:44 ABG Oxyhemoglobin 98.1 (94-98) H 06/13/21 04:31 ABG Carboxyhemoglobin 1.6 % (0.0-5.0) 07/04/21 01:44 ABG Methemoglobin 0.6 % (0.0-1.5) 07/04/21 01:44 Oxyhemoglobin 95.9 % (95.0-99.0) 07/04/21 01:44 Carboxyhemoglobin 0.8 (0.5-1.5) 06/13/21 04:31 FiO2 35 % 07/04/21 01:44 FiO2 % 40.0 06/13/21 04:31 Sodium 138 mmol/L (137-145) 07/09/21 06:10 Potassium 3.8 mmol/L (3.6-5.0) 07/09/21 06:10 Chloride 103.8 mmol/L (98-107) 07/09/21 06:10 Carbon Dioxide 27 mmol/L (22-30) 07/09/21 06:10 Anion Gap 11 mmol/L 07/09/21 06:10 BUN 14 mg/dL (7-17) 07/09/21 06:10 Creatinine 0.7 mg/dL (0.6-1.2) 07/09/21 06:10 Estimated GFR > 60 ml/min 07/09/21 06:10 BUN/Creatinine Ratio 20 % 07/09/21 06:10 Glucose 168 mg/dL (65-100) H 07/09/21 06:10 POC Glucose 148 mg/dL (70-105) H 07/09/21 11:45 Lactic Acid 5.30 mmol/L (0.7-2.0) H* 06/13/21 15:45 Calcium 8.2 mg/dL (8.4-10.2) L 07/09/21 06:10 Phosphorus 3.70 mg/dL (2.5-4.5) D 07/08/21 04:20 Magnesium 1.90 mg/dL (1.7-2.3) 07/08/21 04:20 Total Bilirubin 0.40 mg/dL (0.1-1.2) 06/15/21 03:56 AST 64 units/L (5-40) H 06/15/21 03:56 ALT 106 units/L (7-56) H 06/15/21 03:56 Alkaline Phosphatase 55 units/L (35-129) 06/15/21 03:56 Troponin T < 0.010 ng/mL (0.00-0.029) 06/11/21 23:21 C-Reactive Protein 3.30 mg/dL (0.00-1.30) H 06/16/21 04:32 Total Protein 5.1 g/dL (6.3-8.2) L 06/15/21 03:56 Albumin 2.9 g/dL (3.9-5) L 06/15/21 03:56 Albumin/Globulin Ratio 1.3 % 06/15/21 03:56 Triglycerides 254 mg/dL (2-149) H 06/21/21 04:42 Vitamin B12 647.0 pg/mL (211-911) 07/08/21 15:36 TSH 1.050 mlU/mL (0.270-4.200) 07/08/21 15:36 Urine Color Yellow (Yellow) 06/12/21 17:00 Urine Turbidity Clear (Clear) 06/12/21 17:00 Urine pH 5.0 (5.0-7.0) 06/12/21 17:00 Ur Specific [place] 1.035 (1.003-1.030) H 06/12/21 17:00 Urine Protein 30 mg/dl mg/dL (Negative) 06/12/21 17:00 Urine Glucose (UA) 50 mg/dL (Negative) 06/12/21 17:00 Urine Ketones Tr mg/dL (Negative) 06/12/21 17:00 Urine Blood Neg (Negative) 06/12/21 17:00 Urine Nitrite Neg (Negative) 06/12/21 17:00 Urine Bilirubin Neg (Negative) 06/12/21 17:00 Urine Urobilinogen < 2.0 mg/dL (<2.0) 06/12/21 17:00 Ur Leukocyte Esterase Neg (Negative) 06/12/21 17:00 Urine WBC (Auto) < 1.0 /HPF (0.0-6.0) 06/12/21 17:00 Urine RBC (Auto) < 1.0 /HPF (0.0-6.0) 06/12/21 17:00 Urine Creatinine 81.1 mg/dL (0.1-20.0) H 06/15/21 10:40 Urine Sodium 42 mmol/L 06/15/21 10:40 Coronavirus (PCR) Negative (Negative) 06/12/21 09:50 Blood Type O POSITIVE 06/24/21 06:40 Antibody Screen Negative 06/24/21 06:40 Crossmatch See Detail 06/24/21 06:40 Lujan/IV: Voiding Method Indwelling Catheter Active Medications - Current Medications Current Medications: Generic Name Dose Route Start Last Admin Trade Name Freq PRN Reason Stop Dose Admin Hydrocodone Bitart/Acetaminophen 1 each 07/04/21 10:00 07/09/21 06:15 Hydrocodone/Acetaminophen 5-325 Mg Tab PO 1 each Q6H PRN Administration Pain, Moderate (4-6) Amlodipine Besylate 5 mg 06/23/21 10:00 07/09/21 09:15 Amlodipine 5 Mg Tab PO 5 mg QDAY JOLENE Administration Lipase/Protease/Amylase 1 each 06/19/21 19:20 Lipase 10,500/Protease 25,000/Amylase 43,750 (Units) Dr Melgar FEEDTUBE PRN PRN For Clogged Feeding Tube Atorvastatin Calcium 20 mg 06/22/21 22:00 07/08/21 21:35 Atorvastatin 20 Mg Tab PO 20 mg QHS JOLENE Administration Baclofen 10 mg 07/07/21 11:39 07/09/21 02:15 Baclofen 10 Mg Tab PO 10 mg BID PRN Administration Muscle pain Enoxaparin Sodium 40 mg 06/30/21 22:00 07/08/21 21:35 Enoxaparin 40 Mg/0.4 Ml Inj SUB-Q 40 mg QDAY@2200 JOLENE Administration Protocol Famotidine 20 mg 06/24/21 22:00 07/09/21 09:15 Famotidine 20 Mg Tab FEEDTUBE 20 mg BID JOLENE Administration Gabapentin 100 mg 07/07/21 14:00 07/09/21 08:50 Gabapentin 100 Mg Cap PO 100 mg TID JOLENE Administration Hydralazine HCl 100 mg 06/22/21 19:00 07/09/21 06:27 Hydralazine 100 Mg Tab FEEDTUBE 100 mg Q8HR JOLNEE Administration Insulin Glargine 30 units 07/04/21 22:00 07/08/21 21:59 Insulin Glargine 100 Units/Ml SUB-Q 30 units QHS [facility] Administration Insulin Human Lispro 0 unit 06/12/21 12:00 07/09/21 11:53 Insulin Lispro 100 Unit/Ml SUB-Q Not Given Q6HR [facility] Protocol Labetalol HCl 10 mg 06/21/21 18:00 07/08/21 18:11 Labetalol 20 Mg/4 Ml Inj IV 10 mg Q4HR PRN Administration Hypertension Melatonin 5 mg 07/05/21 22:00 07/08/21 21:35 Melatonin 5 Mg Tab PO 5 mg QHS JOLENE Administration Metoclopramide HCl 10 mg 06/11/21 20:42 Metoclopramide 10 Mg/2 Ml Inj IV Q6H PRN Nausea And Vomiting Ondansetron HCl 4 mg 06/11/21 20:42 Ondansetron 4 Mg/2 Ml Inj IV Q3H PRN Nausea And Vomiting Simple Syrup 15 ml 06/19/21 19:20 Simple Syrup 15 Ml FEEDTUBE PRN PRN Hypoglycemia Simple Syrup 30 ml 06/19/21 19:20 Simple Syrup 15 Ml FEEDTUBE PRN PRN Hypoglycemia Sodium Bicarbonate 325 mg 06/19/21 19:20 Sodium Bicarbonate 325 Mg Tab FEEDTUBE PRN PRN For Clogged Feeding Tube Sodium Chloride 10 ml 06/11/21 22:00 07/09/21 09:16 Sodium Chloride 0.9% 10 Ml Flush Syringe IV 10 ml BID JOLENE Administration Sodium Chloride 10 ml 06/11/21 20:42 Sodium Chloride 0.9% 10 Ml Flush Syringe IV PRN PRN LINE FLUSH Trazodone HCl 100 mg 07/05/21 22:00 07/08/21 21:34 Trazodone 50 Mg Tab PO 100 mg QHS JOLENE Administration Nutrition/Malnutrition Assess - Dietary Evaluation Nutrition/Malnutrition Findings: Nutrition Notes Start: 06/16/21 12:10 Freq: Status: Active Protocol: Document 07/08/21 14:32 BRITNI (Rec: 07/08/21 14:43 BRITNI [email or web address]) Nutrition Notes Initial or Follow up Reassessment Current Diagnosis Diabetes,Hypertension, Respiratory Failure Other Pertinent Diagnosis Jeremiah's Angina, s/p cardiac arrest Current Diet TF-Vital AF 1.2 Quan at 50 ml/ hr Labs/Tests BG 183 POC Glu range since last assessment: 121-246 Pertinent Medications Reviewed Height 5 ft 8 in Weight 108.6 kg [place] Body Weight (kg) 63.63 BMI 36.3 Weight change and time frame Wt change noted Weight Status Obese Subjective/Other Information TF off at time of visit (12:38 ). Pt scheduled for trach down-sizing today. Pt currently on T-piece at 28% and awaiting placement of [place]-Ann valve. (R) chest tube removed on 06/29. Per RN, pt had been tolerating TF at goal rate. Percent of energy/protein needs met: 95% energy 71% pro Burn Absent Trauma Absent #1 Nutrition Diagnosis Inadequate oral intake Diagnosis Progress(for reassessment Continues documentation) Is patient on ventilator? No Is Patient Ambulatory and/or Out of Bed No REE-([facility]-confined to bed) 1960.292 Kcal/Kg value to use for calculation 14 Approximate Energy Requirements Using 1520 kcal/Kg Calculation Used for Recommendations Kcal/kg Additional Notes Pro needs 2g/kg IBW: 127g/day Fluid needs 1ml/kcal Nutrition Intervention Nutrition Support: Continue Vital AF 1.2 Quan at 50 ml/hr with 80ml water flush q4h. Kcal 1,440 Protein (gm) 90 Carbohydrates (gm) 133 Fat (gm) 65 Fluid (mL) 973 Fiber (gm) 6 Goal #1 TF tolerance Goal #2 TF to meet nutrient needs as best possible Follow-Up By: 07/15/21 Additional Comments F/U: stable TF, wt, resp status
[2021-07-09] MEDS: traZODone 50 MG TAB PO SCH (21:29)
[2021-07-09] MEDS: MELATONIN 5 MG TAB PO SCH (21:29)
[2021-07-09] MEDS: ENOXAPARIN 40 MG/0.4 ML INJ SUB-Q SCH (21:29)
[2021-07-09] MEDS: INSULIN GLARGINE 100 UNITS/ML SUB-Q SCH (21:39)
[2021-07-10] MEDS: INSULIN LISPRO 100 UNIT/ML SUB-Q SCH ×4 (00:30→18:36)
[2021-07-10] MEDS: HYDROcodone/ACETAMINOPHEN 5-325 MG TAB PO PRN ×3 (01:41→18:36)
[2021-07-10] MEDS: hydrALAZINE 100 MG TAB FEEDTUBE SCH ×3 (05:03→21:07)
[2021-07-10] MEDS: GABAPENTIN 100 MG CAP PO SCH ×3 (08:40→21:06)
--- NOTE | 2021-07-10 09:08 | Progress Note ---
Assessment and Plan Assessment and plan: Assessment and plan: This is a 76-year-old female with HTN, Coumadin use, dental caries, PVD s/p stenting to right leg, DM, arthritis, depression, gout and ? Pulmonary hypertension admitted with Jeremiah's angina s/p emergent cric with bleeding, right sided pneumothorax, supratherapeutic INR, hypernatremia, hyperchloremia, severe metabolic acidosis, hyperglycemia and hypocalcemia Neuro: Acute pain, r/o myasthenia gravis, h/o depression, arthritis -prn fent pushes -Avoid delirium -Reorientation as needed -Maintain sleep-wake cycle -PT consulted; recommends LTAC -Neurology consulted, appreciate recommendations -B12, A1c, CK, TSH pending -MRI brain to rule out bleeding and old watershed infarct -gabapentin Cardiac: S/p cardiac arrest, h/o htn, PVD s/p stenting Right leg -06/14 cardiac arrest with ROSC -S/p vasopressor support with Levophed and Fabian-Synephrine -Blood pressure monitoring per protocol -Antihypertensive regimen: Hydralazine 100 mg every 8 -06/13 Echocardiogram EF 65-70% Respiratory: Acute hypoxic respiratory failure, right pneumothorax -CCM consulted, appreciate recommendations -S/p emergent cricothyroidectomy with surgery with 8.00 ETT -s/p trach 06/19 with surgery s/p #10 Shiley -07/08 Shiley downsized to #8 -T-piece trials started 06/26 -ST: Unable to tolerate Passy-Ann valve on 06/28 but has since tolerated 10 min -misplaced PSMV during transport and awaiting replacement -s/p Right chest tube removed 06/29 -06/13 bronchoscopy showed possible blood clot in left lung which may be acting as mucous plug however it was left in place due to possible bleeding inside lung if removed. -CXR post cardiac arrest shows clearance of mucous plug -06/16 CT chest shows moderate right pneumothorax with collapse of right upper lobe, right thoracostomy tube terminates at the collapsed right upper lobe, bilateral bronchus opacities compatible with infectious/inflammatory etiology, bilateral small pleural effusion, extensive subcutaneous air, small fluid co llection in the anterior mediastinum is nonspecific -VAP bundle -SPO2 monitoring GI: Protein calorie malnutrition -24 hours -1545 mL -PPI -BR: senna, colace -s/p TPN -Nutrition consult for tube feeding -S/p PEG : Urinary retention, acute kidney injury possibly secondary to vasomotor nephropathy (resolved) -Strict intake and output -Renally dose medications -Avoid nephrotoxic medications -Daily weights -Consider nephrology consult if worsens -S/p 7 L LR bolus -Replete potassium -Lujan catheter replaced due to urinary retention ID: 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 dental caries -CT neck with contrast showed a significant right floor of mild swelling with extension into the submandibular and submental spaces, significant thickening and inflammation involving the right pharyngeal wall, with the parapharyngeal and retropharyngeal spaces at the level of the thyroid cartilage, epiglottis si gnificantly swollen and so are the aryepiglottic folds resulting in significant airway narrowing at this level, no lymphadenopathy, symmetric submandibular and parathyroid glands, S few scattered caries but no periapical lucencies, nonspecific calcification along the right lateral oropharynx, no definite stone seen within the territory of the submandibular gland ducts, no suspicious rashes lesion -Infectious disease and general surgery consulted, appreciate recommendations -s/p cricothyroidectomy -Will follow surgery to direction and treatment of injury -Per surgery may have mucosal injury -Intra-Op findings include post pharyngeal swelling and bruising -s/p Solu-Medrol -Per ID: if leucocytosis persists after being off steroids, obtain CT neck with IV contrast to rule out any abscess -Antibiotic therapy Zosyn x 21 days completed -COVID-19 PCR negative -f/u blood culture -Monitor WBC and temperature curve -s/p 5L normal saline bolus in ED, 7 L LR bolus in ICU Heme: Coagulopathy (resolved), supratherapeutic INR (resolved), acute blood loss anemia (resolved), possible component of hemorrhagic shock (resolved), leukocytosis (resolved) -Patient is on Coumadin at home -S/p 5 FFP, 8 PRBC, vitamin K x3 -Trend CBC -Presented with H/H of 10.3/34.6 and decreased to 6.7/22.4 -INR 8.18-> 4.55-> 2.1-> 1.23-> 1.16-> 1.31 -Transfuse hemoglobin less than 7 -Lovenox subq (prophylactic) -Monitor for signs of bleeding -SCDs to BLE while in bed Endo: h/o DM, gout -S/p Lantus 25 units x 1 -Lantus subcu, titrate as needed -Avoid hypoglycemia -SSI -Accu-Cheks q. 6hr The high probability of a clinically significant, sudden or life threatening deterioration of the [multi] system(s) required my full and direct attention, intervention and personal management. The aggregate critical care time was [60] minutes. This time is in addition to time spent performing reported procedures but includes the following: [x] Data Review and interpretation [x] Patient assessment and monitoring of vital signs [x] Documentation [x] Medication orders and management Disposition Plan: IMCU Total Time Spent with Patient (Minutes): 60 History Interval history: Interval history: This is a 76-year-old female with HTN, Coumadin use , dental caries, PVD s/p stenting right leg, DM, arthritis, depression, gout, and ? Pulmonary hypertension who presented to emergency department on 06/11 with complaints of pain to mandible area and throat and swelling. Work-up in the emergency department included CT scan of the head and neck which showed findings consistent with Jeremiah's angina and anesthesia was called for intubation. Anesthesia intubation attempts were unsuccessful and surgery was consulted for cricothyroidotomy which was unsuccessful in the emergency department and patient was taken to the OR for tracheostomy. Intubation procedure was complicated by development of pneumothorax and excessive bleeding. Patient given multiple FFP's and vitamin K several times who attempts to decrease INR. Lab work showed leukocytosis, supratherapeutic INR, hypernatremia, hyperchloremia, severe metabolic acidosis, hyperglycemia, hypocalcemia. Patient was admitted to the hospitalist service with consults to [facility], general surgery, infectious disease. Hospital course to date: 06/12: Patient received additional 2 units FFP and 1 unit PRBC and vitamin K today. Overnight critical care placed a femoral CVL. Patient sedated on fentanyl, propofol and Versed. Currently on Fabian-Synephrine and Levophed for blood pressure maintenance. Remains amatory support. Infectious disease consulted. Started on sliding scale insulin and recultured. COVID-19 PCR pending. Surgery at bedside to place chest tube. 06/13: Patient was taken back to the OR today for exchange cricothyroid to possible tracheostomy. Patient returned with ETT. Chest tube was changed to larger size in the OR. Patient was hypotensive, tachycardic, hypoxic in the OR and received hespan, albumin and an A-line. Upon arrival patient was increased to max dose Levophed for hypotension which has resolved. Titrating vasopressors as tolerated. Remains on sedation with 3 agents. Apparently patient was not ventilating her left lung Intra-Op. Noted to have subcu hematoma and trauma to postpharyngeal area. Questionable decrease cardiac wall motion noted in OR-> will order echocardiogram to further investigate. Patient received additional PRBC today. DIC panel resulted as normal. Patient BUN/creatinine did increase as well as noted to have lactic acidosis. May need IV bolus in addition to pressor use. Likely bronc with Pulmicort today as repeat CXR showed right possible pneumo hydrothorax 06/14: Antibiotics changed to Zosyn per ID, surgical packing removed from neck and makeshift Faith drain placed by surgery and old chronic thyroidectomy site. CXR was completed and RN heard gurgling and blood was noted on dressing. ST elevation noted on bedside monitor and patient was hypoxic. FiO2 increased to 100%. However shortly after patient lost her pulse and ACLS was initiated. Patient received 3 rounds of epinephrine and ROSC was achieved. Stat portable CXR showed resolution of lower lobe collapse on the left and stable right-sided chest tube with hemothorax. CCM updated family. Patient H/H noted to be 7.2/23.2 and did RN to transfuse prepared PRBC which [facility] blood bank. Bedside echo completed. 06/15: Off sedation, intermittently follows commands, remains on the prednisone. Surgery will reassess airway on Thursday to see if any further support is required. Urine studies indicate prerenal, given IV bolus and started on Clinimix today. 06/16: Patient restarted on fentanyl drip due to hypertension. Given more LR due to CR improvement post LR yesterday. Patient started on Lantus subcu after given one-time dose of Lantus. PICC placed today. Patient had a CT chest today which showed no mediasinusitis but extensive subcutaneous air. 06/17: General Surgery recommended transferring patient to a ENT specialized facility. Placed a call to [facility], spoke with the senior wind energy consultant, Dr. Duckworth, who stated that a transfer is possible as long their ENT team accept the patient. Awaiting on a final response. Continue current supportive measures. Basal insulin adjusted for hyperglycemia. 06/18: JEREMIAS overnight. Hypertensive this am, PRN Hydralazine for SBP greater than 160. Remains hyperglycemic, patient is on IV steroids and TPN, basal insulin adjusted. Plan for possible transfer to [place] once an ICU bed is available. 06/19: Low SPO2 and hypotension overnight required Levophed for a short time. Overnight CXR noted with no significant changed. Patient is stable this am and off pressors. Plan for possible Trach and PEG today by General Surgery. 06/20: s/p Trach and PEG. Some bleeding overnight s/p X1 dose of Vitamin K. The bleeding resolved this am, H&H remains stable. Attempted a SAT this am, patient went into SVT, HR in the 160-170 which resolved once sedations were resumed. Plan is to continue to sedation for now, attempt to wean off propofol for a RASS goal of 0 to -2. D/C CCM plan is to wean off sedation as tolerated for PST for possible extubation. Okay to use PEGT per Gen. Surgery. Nutrition consulted for TF management, TF to start tonight once current TPN bag is completed. BG remains elevated, continue current SSI and basal for now, will start tapering IV steroids tomorrow. FWF added for hyponatremia. Wean off pressors as tolerated for MAP above 65. Possible transfer to [place] for ENT eval. 06/21: Overnight events and CXR noted. Worsen subcutaneous emphysema and Rt. Pneumo. CT remains in place and intact to cont. wall suction. Patient remains hemodynamically stable, still on low vent setting. will continue to monitor for now. Patient is also tolerating enteral nutrition via PEGT, TPN D/benjamín. H&H is also trending down, no s/s of any active bleeding. Will continue to trend H&H, transfuse if hgb is less than 7. FWF increased for hypernatremia. Still waiting on possible transfer to [place]. 06/22: JEREMIAS overnight. Subcutaneous emphysema is unchanged. CXR with mild improvement. Patient remains hemodynamically stable. Hydralazine added Q8hr for HTN. FWF increased for hypernatremia. Awaiting transfer to [place] for ENT eval. 06/23: Over 70cc from CT overnight, subcutaneous emphysema with mild improvement. Patient is also tolerating PST this am. Repeat CXR in the am. Patient is still hypertensive, will added norvasc for better control. Continue FWF for hypernatremia and electrolytes replacement as needed, repeat labs in the am. Darin in wbcs this am, patient remains afebrile and on IV Abx, most likely due to IV steroids continue to monitor. Continue to taper IV steroids. Hyperglycemia is also improving, continue current SSI and basal for now. 06/24: Patient is anemic today and transfused 1 unit PRBC, hypokalemia and hypophosphatemia repleted, will continue every 6 H/H for now to monitor for bleeding, steroid taper continues, still awaiting transfer to [place], PT/OT consulted, CCM to talk to case management regarding LTAC transfer. 06/25: Patient responded appropriately to yesterday, placed on pressure support trial today. Per CCM hopefully T-piece in the next 24 to 48 hours and will continue decrease steroids further on . Lujan catheter removed today. 06/26: Patient started T-piece trials, H/H remained stable. Surgery plans to remove chest tube once weaned off ventilator. Increasing her water flush given hypernatremia. 06/27: Chest tube placed to waterseal, T-piece trial trials ongoing. Remains on Zosyn and steroids being tapered. Increasing free water flush, insulin and added 3 times daily insulin. 06/28: Hypernatremia persists, started on D5W for 1 L, replace potassium. Chest tube remains to waterseal. 06/29: Chest tube removed by surgery today, hyponatremia better and dextrose discontinued, hypokalemia noted which was repleted. Speech did see but patient had decreased voice quality and increased wob so aborted 06/30: Hypokalemia noted on labs will be repleted, leukocytosis continues to improve. Continues on T-piece trials and is following commands. 07/01: Transfer from ICU on 06/30. Patient was stable with a trach and T-piece on 5 L. Tolerating tube feeds. 07/02: Patient remains on T-piece with trach in place. On 5 L of O2. She is alert and responds appropriately but not well due to trach tube. Tolerating tube feeds. Appears comfortable. No complaints. No new events reported. Case management reports patient with plans for LTAC placement. 07/03: Patient remains on T-piece with trach in place. On 5 L of O2. Patient tolerating tube feeds. We will check CT of head, neck and chest per pulmonary and general surgery recommendations based on CBC this morning. If leukocytosis persists we will proceed with studies. Patient remains afebrile today. 07/04: s/p X1 dose of IV lasix, patient is now stable on the T-piece via trach at 28% and 5L. Patient remains afebrile, leukocytosis improved, and CXR wiht no significant change. PRN Mcleod added for pain management. Electrolytes repleted 07/05: Remains stable on T-piece. Complaint of lack of sleep and tiredness this am, Trazadone and melatonin added for sleep. Continue PT- increase mobility and possibly OOB to chair today. Continue pain management. Electrolytes repleted. 07/06: Rested overnight. And continue to tolerate T-piece at 28% and 5L. Continue trazadone and melatonin at night for sleep and pain control with PRN analgesia. Discussed possibility of down sizing the trach to an 8 Shiley with General Surgery. Per Surgery downsizing would not be easy nor safe at this time. Plan to order #10 PSMV instead. Case management to arrange possible placement SNF vs subacute rehab. 07/07: JEREMIAS overnight. New report of BLE pain and swelling, per patient was on gabapentin and smooth muscle relaxers at home. BLE did appear swollen with palpable pedal pulses. Will get BLE doppler, resume gabapentin, and continue PRN analgesic for pain control. Continue mobility/strenght and conditioning with PT. Electrolytes repleted, repeat labs in the am. 07/08: Patient scheduled to have a downsize of Shiley today in the OR with surgery, surgery also requested neurology consult for MS work-up. Lidocaine patches to bilateral lower extremities discontinued. 07/09: Transfer to [facility]. s/p trach downsize by surgery. Will need aggressive PT/OT/ST. Possible eval by ST for MPV. Placement now of concern. Will continue coordination with CM. Neuro: doubt MG. suspects myopathy likely ICU acquired from prolonged immobilization. Again she will require aggressive PT rehab. 07/10: Appears volume overloaded. Lasix 40 mg IV x 2 doses ordered. Will need continued aggressive PT. ST eval for PSMV (still has not arrived per notes). Hospitalist Physical - Physical exam Narrative exam: - General Apperance Constitutional: comfortable - EENT EENT: PERRL, mucous membranes moist - Respiratory Respiratory: lungs clear, rhonchi - Cardiovascular Cardiovascular: regular rate, normal S1, normal S2 Extremities: no peripheral edema bilat, no clubbing, cyanosis - Gastrointestinal Gastrointestinal: normoactive bowel sounds - Integumentary Integumentary: normal - Neurologic Cranial nerve examination: PERRL, EOMI, intact Speech examination: other (tracheostomy tube, no aphasia) Detailed motor examination: other (Bilateral proximal motor weakness upper> Lower, suppressed reflexes, no cranial weakness is noted neck muscles are intact) Motor examination - right side: 05/08: biceps - Constitutional Vitals: Temp Pulse Resp BP Pulse Ox 99.7 F H 98 H 26 H 163/86 95 07/10/21 07:23 07/10/21 08:30 07/10/21 08:30 07/10/21 08:30 07/10/21 08:30 General appearance: Present: no acute distress, obese (Morbidly obese), other (On T-piece with trach in place.) HEART Score - HEART Score Troponin: Troponin T < 0.010 ng/mL (0.00-0.029) 06/11/21 23:21 Results - Labs CBC & Chem 7: 07/09/21 06:10 07/09/21 06:10 Labs: Laboratory Last Values WBC 5.2 K/mm3 (4.5-11.0) 07/09/21 06:10 RBC 2.96 M/mm3 (3.65-5.03) L 07/09/21 06:10 Hgb 7.8 gm/dl (10.1-14.3) L 07/09/21 06:10 Hct 23.5 % (30.3-42.9) L 07/09/21 06:10 MCV 79 fl (79-97) 07/09/21 06:10 MCH 27 pg (28-32) L 07/09/21 06:10 MCHC 33 % (30-34) 07/09/21 06:10 RDW 20.9 % (13.2-15.2) H 07/09/21 06:10 Plt Count 307 K/mm3 (140-440) 07/09/21 06:10 Lymph % (Auto) 6.1 % (13.4-35.0) L 07/04/21 05:13 [place] % (Auto) 6.6 % (0.0-7.3) 07/04/21 05:13 Eos % (Auto) 1.8 % (0.0-4.3) 07/04/21 05:13 Baso % (Auto) 0.5 % (0.0-1.8) 07/04/21 05:13 Lymph # (Auto) 0.6 K/mm3 (1.2-5.4) L 07/04/21 05:13 [place] # (Auto) 0.6 K/mm3 (0.0-0.8) 07/04/21 05:13 Eos # (Auto) 0.2 K/mm3 (0.0-0.4) 07/04/21 05:13 Baso # (Auto) 0.0 K/mm3 (0.0-0.1) 07/04/21 05:13 Add Manual Diff Complete 06/30/21 04:25 Total Counted 100 06/30/21 04:25 Seg Neutrophils % 85.0 % (40.0-70.0) H 07/04/21 05:13 Seg Neuts % (Manual) 81.0 % (40.0-70.0) H 06/30/21 04:25 Band Neutrophils % 0 % 06/30/21 04:25 Lymphocytes % (Manual) 10.0 % (13.4-35.0) L 06/30/21 04:25 Reactive Lymphs % (Man) 0 % 06/30/21 04:25 Monocytes % (Manual) 8.0 % (0.0-7.3) H 06/30/21 04:25 Eosinophils % (Manual) 1.0 % (0.0-4.3) 06/30/21 04:25 Basophils % (Manual) 0 % (0.0-1.8) 06/30/21 04:25 Metamyelocytes % 0 % 06/30/21 04:25 Myelocytes % 0 % 06/30/21 04:25 Promyelocytes % 0 % 06/30/21 04:25 Blast Cells % 0 % 06/30/21 04:25 Nucleated RBC % Not Reportable 06/30/21 04:25 Seg Neutrophils # 8.0 K/mm3 (1.8-7.7) H 07/04/21 05:13 Seg Neutrophils # Man 10.5 K/mm3 (1.8-7.7) H 06/30/21 04:25 Band Neutrophils # 0.0 K/mm3 06/30/21 04:25 Lymphocytes # (Manual) 1.3 K/mm3 (1.2-5.4) 06/30/21 04:25 Abs React Lymphs (Man) 0.0 K/mm3 06/30/21 04:25 Monocytes # (Manual) 1.0 K/mm3 (0.0-0.8) H 06/30/21 04:25 Eosinophils # (Manual) 0.1 K/mm3 (0.0-0.4) 06/30/21 04:25 Basophils # (Manual) 0.0 K/mm3 (0.0-0.1) 06/30/21 04:25 Metamyelocytes # 0.0 K/mm3 06/30/21 04:25 Myelocytes # 0.0 K/mm3 06/30/21 04:25 Promyelocytes # 0.0 K/mm3 06/30/21 04:25 Blast Cells # 0.0 K/mm3 06/30/21 04:25 WBC Morphology Not Reportable 06/30/21 04:25 Hypersegmented Neuts Not Reportable 06/30/21 04:25 Hyposegmented Neuts Not Reportable 06/30/21 04:25 Hypogranular Neuts Not Reportable 06/30/21 04:25 Smudge Cells Not Reportable 06/30/21 04:25 Toxic Granulation Not Reportable 06/30/21 04:25 Toxic Vacuolation Not Reportable 06/30/21 04:25 Dohle Bodies Not Reportable 06/30/21 04:25 Pelger-Huet Anomaly Not Reportable 06/30/21 04:25 Dennis Rods Not Reportable 06/30/21 04:25 Platelet Estimate Consistent w auto 06/30/21 04:25 Clumped Platelets Not Reportable 06/30/21 04:25 Plt Clumps, EDTA Not Reportable 06/30/21 04:25 Large Platelets Few 06/30/21 04:25 Giant Platelets Not Reportable 06/30/21 04:25 Platelet Satelliting Not Reportable 06/30/21 04:25 Plt Morphology Comment Not Reportable 06/30/21 04:25 RBC Morphology Not Reportable 06/30/21 04:25 Dimorphic RBCs Not Reportable 06/30/21 04:25 Polychromasia Rare 06/30/21 04:25 Hypochromasia 1+ 06/30/21 04:25 Poikilocytosis Not Reportable 06/30/21 04:25 Anisocytosis 1+ 06/30/21 04:25 Microcytosis Not Reportable 06/30/21 04:25 Macrocytosis Not Reportable 06/30/21 04:25 Spherocytes Not Reportable 06/30/21 04:25 Pappenheimer Bodies Not Reportable 06/30/21 04:25 Sickle Cells Not Reportable 06/30/21 04:25 Target Cells Rare 06/30/21 04:25 Tear Drop Cells Few 06/30/21 04:25 Ovalocytes Not Reportable 06/30/21 04:25 Stomatocytes Few 06/12/21 01:45 Helmet Cells Not Reportable 06/30/21 04:25 Salamanca-Cathcart Bodies Not Reportable 06/30/21 04:25 Graham Rings Not Reportable 06/30/21 04:25 Nelsy Cells Not Reportable 06/30/21 04:25 Bite Cells Not Reportable 06/30/21 04:25 Crenated Cell Not Reportable 06/30/21 04:25 Elliptocytes Not Reportable 06/30/21 04:25 Acanthocytes (Spur) Not Reportable 06/30/21 04:25 Rouleaux Not Reportable 06/30/21 04:25 Hemoglobin C Crystals Not Reportable 06/30/21 04:25 Schistocytes Not Reportable 06/30/21 04:25 Malaria parasites Not Reportable 06/30/21 04:25 Edin Bodies Not Reportable 06/30/21 04:25 Hem Pathologist Commnt No 06/30/21 04:25 PT 18.3 Sec. (12.2-14.9) H 06/20/21 04:33 INR 1.37 (0.87-1.13) H 06/20/21 04:33 APTT 26.4 Sec. (24.2-36.6) 06/13/21 Unknown Fibrinogen 546 mg/dl (211-480) H 06/13/21 Unknown D-Dimer 1244.63 ng/mlDDU (0-234) H 06/13/21 Unknown ABG pH 7.448 pH Units (7.350-7.450) 07/04/21 01:44 POC ABG pCO2 25.6 mmHg (32.0-48.0) L 06/13/21 04:31 ABG pCO2 39.5 mm Hg 07/04/21 01:44 POC ABG pO2 138.8 mmHg (83-108) H 06/13/21 04:31 ABG pO2 107.7 mm Hg (80.0-90.0) H 07/04/21 01:44 POC ABG HCO3 21.4 06/13/21 04:31 ABG HCO3 26.7 mmol/L (20.0-26.0) H 07/04/21 01:44 ABG O2 Saturation 98.0 % (95.0-99.0) 07/04/21 01:44 ABG O2 Content 10.3 (0.0-44) 07/04/21 01:44 POC ABG Base Excess -0.7 06/13/21 04:31 ABG Base Excess 2.5 mmol/L (-2.0-3.0) 07/04/21 01:44 ABG Hemoglobin 7.5 gm/dl (12.0-16.0) L 07/04/21 01:44 ABG Oxyhemoglobin 98.1 (94-98) H 06/13/21 04:31 ABG Carboxyhemoglobin 1.6 % (0.0-5.0) 07/04/21 01:44 ABG Methemoglobin 0.6 % (0.0-1.5) 07/04/21 01:44 Oxyhemoglobin 95.9 % (95.0-99.0) 07/04/21 01:44 Carboxyhemoglobin 0.8 (0.5-1.5) 06/13/21 04:31 FiO2 35 % 07/04/21 01:44 FiO2 % 40.0 06/13/21 04:31 Sodium 138 mmol/L (137-145) 07/09/21 06:10 Potassium 3.8 mmol/L (3.6-5.0) 07/09/21 06:10 Chloride 103.8 mmol/L (98-107) 07/09/21 06:10 Carbon Dioxide 27 mmol/L (22-30) 07/09/21 06:10 Anion Gap 11 mmol/L 07/09/21 06:10 BUN 14 mg/dL (7-17) 07/09/21 06:10 Creatinine 0.7 mg/dL (0.6-1.2) 07/09/21 06:10 Estimated GFR > 60 ml/min 07/09/21 06:10 BUN/Creatinine Ratio 20 % 07/09/21 06:10 Glucose 168 mg/dL (65-100) H 07/09/21 06:10 POC Glucose 203 mg/dL (70-105) H 07/10/21 05:24 Lactic Acid 5.30 mmol/L (0.7-2.0) H* 06/13/21 15:45 Calcium 8.2 mg/dL (8.4-10.2) L 07/09/21 06:10 Phosphorus 3.70 mg/dL (2.5-4.5) D 07/08/21 04:20 Magnesium 1.90 mg/dL (1.7-2.3) 07/08/21 04:20 Total Bilirubin 0.40 mg/dL (0.1-1.2) 06/15/21 03:56 AST 64 units/L (5-40) H 06/15/21 03:56 ALT 106 units/L (7-56) H 06/15/21 03:56 Alkaline Phosphatase 55 units/L (35-129) 06/15/21 03:56 Troponin T < 0.010 ng/mL (0.00-0.029) 06/11/21 23:21 C-Reactive Protein 3.30 mg/dL (0.00-1.30) H 06/16/21 04:32 Total Protein 5.1 g/dL (6.3-8.2) L 06/15/21 03:56 Albumin 2.9 g/dL (3.9-5) L 06/15/21 03:56 Albumin/Globulin Ratio 1.3 % 06/15/21 03:56 Triglycerides 254 mg/dL (2-149) H 06/21/21 04:42 Vitamin B12 647.0 pg/mL (211-911) 07/08/21 15:36 TSH 1.050 mlU/mL (0.270-4.200) 07/08/21 15:36 Urine Color Yellow (Yellow) 06/12/21 17:00 Urine Turbidity Clear (Clear) 06/12/21 17:00 Urine pH 5.0 (5.0-7.0) 06/12/21 17:00 Ur Specific [place] 1.035 (1.003-1.030) H 06/12/21 17:00 Urine Protein 30 mg/dl mg/dL (Negative) 06/12/21 17:00 Urine Glucose (UA) 50 mg/dL (Negative) 06/12/21 17:00 Urine Ketones Tr mg/dL (Negative) 06/12/21 17:00 Urine Blood Neg (Negative) 06/12/21 17:00 Urine Nitrite Neg (Negative) 06/12/21 17:00 Urine Bilirubin Neg (Negative) 06/12/21 17:00 Urine Urobilinogen < 2.0 mg/dL (<2.0) 06/12/21 17:00 Ur Leukocyte Esterase Neg (Negative) 06/12/21 17:00 Urine WBC (Auto) < 1.0 /HPF (0.0-6.0) 06/12/21 17:00 Urine RBC (Auto) < 1.0 /HPF (0.0-6.0) 06/12/21 17:00 Urine Creatinine 81.1 mg/dL (0.1-20.0) H 06/15/21 10:40 Urine Sodium 42 mmol/L 06/15/21 10:40 Coronavirus (PCR) Negative (Negative) 06/12/21 09:50 Blood Type O POSITIVE 06/24/21 06:40 Antibody Screen Negative 06/24/21 06:40 Crossmatch See Detail 06/24/21 06:40 Luajn/IV: Voiding Method Indwelling Catheter Active Medications - Current Medications Current Medications: Generic Name Dose Route Start Last Admin Trade Name Freq PRN Reason Stop Dose Admin Hydrocodone Bitart/Acetaminophen 1 each 07/04/21 10:00 07/10/21 07:54 Hydrocodone/Acetaminophen 5-325 Mg Tab PO 1 each Q6H PRN Administration Pain, Moderate (4-6) Amlodipine Besylate 5 mg 06/23/21 10:00 07/09/21 09:15 Amlodipine 5 Mg Tab PO 5 mg QDAY JOLENE Administration Lipase/Protease/Amylase 1 each 06/19/21 19:20 Lipase 10,500/Protease 25,000/Amylase 43,750 (Units) Dr Melgar FEEDTUBE PRN PRN For Clogged Feeding Tube Atorvastatin Calcium 20 mg 06/22/21 22:00 07/09/21 21:29 Atorvastatin 20 Mg Tab PO 20 mg QHS JOLENE Administration Baclofen 10 mg 07/07/21 11:39 07/09/21 02:15 Baclofen 10 Mg Tab PO 10 mg BID PRN Administration Muscle pain Enoxaparin Sodium 40 mg 06/30/21 22:00 07/09/21 21:29 Enoxaparin 40 Mg/0.4 Ml Inj SUB-Q 40 mg QDAY@2200 [facility] Administration Protocol Famotidine 20 mg 06/24/21 22:00 07/09/21 21:30 Famotidine 20 Mg Tab FEEDTUBE 20 mg BID JOLENE Administration Gabapentin 100 mg 07/07/21 14:00 07/10/21 08:40 Gabapentin 100 Mg Cap PO 100 mg TID JOLENE Administration Hydralazine HCl 100 mg 06/22/21 19:00 07/10/21 05:03 Hydralazine 100 Mg Tab FEEDTUBE 100 mg Q8HR JOLENE Administration Insulin Glargine 30 units 07/04/21 22:00 07/09/21 21:39 Insulin Glargine 100 Units/Ml SUB-Q 30 units QHS JOLENE Administration Insulin Human Lispro 0 unit 06/12/21 12:00 07/10/21 05:33 Insulin Lispro 100 Unit/Ml SUB-Q 4 unit Q6HR JOLENE Administration Protocol Labetalol HCl 10 mg 06/21/21 18:00 07/08/21 18:11 Labetalol 20 Mg/4 Ml Inj IV 10 mg Q4HR PRN Administration Hypertension Melatonin 5 mg 07/05/21 22:00 07/09/21 21:29 Melatonin 5 Mg Tab PO 5 mg QHS JOLENE Administration Metoclopramide HCl 10 mg 06/11/21 20:42 Metoclopramide 10 Mg/2 Ml Inj IV Q6H PRN Nausea And Vomiting Ondansetron HCl 4 mg 06/11/21 20:42 Ondansetron 4 Mg/2 Ml Inj IV Q3H PRN Nausea And Vomiting Simple Syrup 15 ml 06/19/21 19:20 Simple Syrup 15 Ml FEEDTUBE PRN PRN Hypoglycemia Simple Syrup 30 ml 06/19/21 19:20 Simple Syrup 15 Ml FEEDTUBE PRN PRN Hypoglycemia Sodium Bicarbonate 325 mg 06/19/21 19:20 Sodium Bicarbonate 325 Mg Tab FEEDTUBE PRN PRN For Clogged Feeding Tube Sodium Chloride 10 ml 06/11/21 22:00 07/09/21 21:30 Sodium Chloride 0.9% 10 Ml Flush Syringe IV 10 ml BID JOLENE Administration Sodium Chloride 10 ml 06/11/21 20:42 Sodium Chloride 0.9% 10 Ml Flush Syringe IV PRN PRN LINE FLUSH Trazodone HCl 100 mg 07/05/21 22:00 07/09/21 21:29 Trazodone 50 Mg Tab PO 100 mg QHS JOLENE Administration Nutrition/Malnutrition Assess - Dietary Evaluation Nutrition/Malnutrition Findings: Nutrition Notes Start: 06/16/21 12:10 Freq: Status: Active Protocol: Document 07/08/21 14:32 BRITNI (Rec: 07/08/21 14:43 BRITNI [id number]) Nutrition Notes Initial or Follow up Reassessment Current Diagnosis Diabetes,Hypertension, Respiratory Failure Other Pertinent Diagnosis Jeremiah's Angina, s/p cardiac arrest Current Diet TF-Vital AF 1.2 Quan at 50 ml/ hr Labs/Tests BG 183 POC Glu range since last assessment: 121-246 Pertinent Medications Reviewed Height 5 ft 8 in Weight 108.6 kg Given Body Weight (kg) 63.63 BMI 36.3 Weight change and time frame Wt change noted Weight Status Obese Subjective/Other Information TF off at time of visit (12:38 ). Pt scheduled for trach down-sizing today. Pt currently on T-piece at 28% and awaiting placement of Passey-Ann valve. (R) chest tube removed on 06/29. Per RN, pt had been tolerating TF at goal rate. Percent of energy/protein needs met: 95% energy 71% pro Burn Absent Trauma Absent #1 Nutrition Diagnosis Inadequate oral intake Diagnosis Progress(for reassessment Continues documentation) Is patient on ventilator? No Is Patient Ambulatory and/or Out of Bed No REE-([facility]-confined to bed) 196.292 Kcal/Kg value to use for calculation 14 Approximate Energy Requirements Using 1520 kcal/Kg Calculation Used for Recommendations Kcal/kg Additional Notes Pro needs 2g/kg IBW: 127g/day Fluid needs 1ml/kcal Nutrition Intervention Nutrition Support: Continue Vital AF 1.2 Quan at 50 ml/hr with 80ml water flush q4h. Kcal 1,440 Protein (gm) 90 Carbohydrates (gm) 133 Fat (gm) 65 Fluid (mL) 973 Fiber (gm) 6 Goal #1 TF tolerance Goal #2 TF to meet nutrient needs as best possible Follow-Up By: 07/15/21 Additional Comments F/U: stable TF, wt, resp status
[2021-07-10] MEDS: FAMOTIDINE 20 MG TAB FEEDTUBE SCH ×2 (09:16→21:08)
[2021-07-10] MEDS: amLODIPine 5 MG TAB PO SCH (09:16)
--- NOTE | 2021-07-10 10:35 | Progress Note ---
Assessment and Plan Assessment and Plan Assessment and plan: This is 76-year-old female with past medical history of diabetes mellitus type 2, hypertension and gout who was admitted to the hospital on 06/11/2021 with swel ling of the submandibular region/tongue and shortness of breath. 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 Patient was also noted to have severe coagulopathy due to Coumadin and probably component of hemorrhagic shock with blood loss anemia. S/p vasopressor support with Levophed and Fabian-Synephrine Patient had hospital course complicated by cardiac arrest on 06/14 with ROSC. Patient is status post trach and PEG tube placement on 06/19/2021. Patient was a code met overnight and transfer back in the ICU on 07/04/21 due to decreased level of consciousness, respiratory distress and tachypnea. neurology consulted today for evaluation of diffuse weakness r/o MG !! Assessment and Plan # Diffuse weakness -r/o MG -she is with mostly proximal weakness Bilateral upper and lower -no sign of cranial nerves involvement, -No sign to suggest MG based on exam. -findings in Hx and exam is most likley related to ICU Myopathy/ neuropathy -pt. will benefit from extensive PT/Rehabilitation -Check B12 ,TSH WNL -and A1C,CK are pending #Acute Pain - New report of BLE pain and swelling - BLE did appear swollen with palpable pedal pulses - BLE doppler is negative - Resume gabapentin 300 mg tid - Continue Lidocaine patch and PRN analgesic for pain control - Maintenance of sleep-wake cycle, continue Trazadone and melatonin - Continue mobility/strenght and conditioning with PT #Diabetes mellitus type 2 -Continue SSI Q6hrs -Lantus Qhs -Avoid Hypoglycemia #Acute Hypoxic Respiratory Failure -S/p emergent cricothyroidectomy with surgery with 8.00 ETT #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 from dental caries #Leukocytosis-improved -CT neck with contrast showed a significant right floor of mild swelling with extension into the submandibular and submental spaces, significant thickening and inflammation involving the right pharyngeal wall, with the parapharyngeal and retropharyngeal spaces at the level of the thyroid cartilage, epiglottis significantly swollen and so are the aryepiglottic folds resulting in significant airway narrowing at this level, no lymphadenopathy, symmetric s ubmandibular and parathyroid glands, S few scattered caries but no periapical lucencies, nonspecific calcification along the right lateral oropharynx, no definite stone seen within the territory of the submandibular gland ducts, no suspicious rashes lesion #Hypokalemia -K repleted #Right-sided pneumothorax -s/p Right chest tube removed 06/29 -06/13 bronchoscopy showed possible blood clot in left lung which may be acting as mucous plug however it was left in place due to possible bleeding inside lung if removed. -06/16 CT chest shows moderate right pneumothorax with collapse of right upper lobe, right thoracostomy tube terminates at the collapsed right upper lobe, bilateral bronchus opacities compatible with infectious/inflammatory etiology, bilateral small pleural effusion, extensive subcutaneous air, small fluid collection in the anterior mediastinum is nonspecific #Hypertension #s/p Cardiac arrest -Patient s/p cardiac arrest with ROSC on 06/14. -S/p vasopressor support with Levophed and Fabian-Synephrine -06/13 Echocardiogram EF 65-70% -BP is stable continue current anihypertensive regimen -Continue blood pressure monitor per protocol -PRN labetalol for SBP greater than 160 - MRI brain r/o bleeding , and or water shed infarct !!! still pending #Coagulopathy-resolved #Acute blood loss anemia-resolved -Patient was on coumadin at home -Continue Lovenix SubQ -Transfuse hemoglobin less than 7 -Monitor for signs of bleeding #GI/DVT Prophylaxis -PPI- Pepcid -Continue AC-Lovenox -SCDs to BLE while in bed Subjective Date of service: 07/10/21 Interval history: doing well alert interactive she is on T tube for breathing/tracheostomy Pt therapy strted bed side MRI brain not done CK is pending A1C is pending Objective - Vital Sign Vital Signs - 12hr 07/09/21 07/09/21 07/09/21 22:31 23:00 23:30 Temperature Pulse Rate 96 H 98 H 96 H Pulse Rate [ From Monitor] Respiratory 21 21 23 Rate Blood Pressure 118/67 118/67 128/65 O2 Sat by Pulse 97 98 97 Oximetry 07/09/21 07/10/21 07/10/21 23:31 00:00 00:03 Temperature 98.8 F Pulse Rate 98 H 93 H 93 H Pulse Rate [ From Monitor] Respiratory 23 21 20 Rate Blood Pressure 128/65 133/71 133/71 O2 Sat by Pulse 97 95 94 Oximetry 07/10/21 07/10/21 07/10/21 00:31 01:00 01:31 Temperature Pulse Rate 93 H 94 H 100 H Pulse Rate [ From Monitor] Respiratory 19 22 24 Rate Blood Pressure 133/71 133/76 133/76 O2 Sat by Pulse 93 92 95 Oximetry 07/10/21 07/10/21 07/10/21 02:00 02:30 03:00 Temperature Pulse Rate 98 H 95 H 91 H Pulse Rate [ From Monitor] Respiratory 30 H 14 19 Rate Blood Pressure 142/74 133/76 142/81 O2 Sat by Pulse 92 91 97 Oximetry 07/10/21 07/10/21 07/10/21 03:30 03:57 04:00 Temperature 98.4 F Pulse Rate 86 93 H Pulse Rate [ From Monitor] Respiratory 25 H 23 Rate Blood Pressure 142/81 136/76 O2 Sat by Pulse 96 99 93 Oximetry 07/10/21 07/10/21 07/10/21 04:30 05:00 05:30 Temperature Pulse Rate 96 H 91 H 95 H Pulse Rate [ From Monitor] Respiratory 20 24 26 H Rate Blood Pressure 136/76 153/84 153/84 O2 Sat by Pulse 92 95 95 Oximetry 07/10/21 07/10/21 07/10/21 06:00 06:30 07:00 Temperature Pulse Rate 96 H 101 H 107 H Pulse Rate [ From Monitor] Respiratory 28 H 24 29 H Rate Blood Pressure 159/80 159/80 162/93 O2 Sat by Pulse 94 95 83 L Oximetry 07/10/21 07/10/21 07/10/21 07:23 07:30 08:00 Temperature 99.7 F H Pulse Rate 100 H 96 H Pulse Rate [ 96 H From Monitor] Respiratory 31 H 25 H Rate Blood Pressure 162/93 163/86 O2 Sat by Pulse 96 100 Oximetry 07/10/21 07/10/21 07/10/21 08:30 09:16 10:27 Temperature Pulse Rate 98 H 100 H 98 H Pulse Rate [ From Monitor] Respiratory 26 H Rate Blood Pressure 163/86 163/86 173/87 O2 Sat by Pulse 95 Oximetry - General Apperance Constitutional: comfortable - EENT EENT: PERRL, mucous membranes moist, other (tracheostomy and T tube breathing) - Respiratory Respiratory: lungs clear, rhonchi - Cardiovascular Cardiovascular: regular rate, normal S1, normal S2 Extremities: no peripheral edema bilat, no clubbing, cyanosis - Gastrointestinal Gastrointestinal: normoactive bowel sounds - Integumentary Integumentary: normal - Neurologic Cranial nerve examination: PERRL, EOMI, intact Speech examination: other (tracheostomy , follow commands, no aphasia ) Detailed motor examination: other (diffuse weakness more proximal Upper and lower ,suppressed reflexes ) - Laboratory Findings CBC and BMP: 07/09/21 06:10 07/09/21 06:10 Abnormal Lab Findings: Abnormal Labs 06/11/21 06/11/21 06/11/21 15:23 15:23 19:20 WBC 12.0 H RBC Hgb Hct MCV 72 L MCH 21 L RDW 17.5 H Plt Count Lymph % (Auto) 12.9 L [place] % (Auto) 8.6 H Lymph # (Auto) [place] # (Auto) 1.0 H Seg Neutrophils % 77.4 H Seg Neuts % (Manual) Lymphocytes % (Manual) Monocytes % (Manual) Seg Neutrophils # 9.3 H Seg Neutrophils # Man Lymphocytes # (Manual) Monocytes # (Manual) PT INR APTT Fibrinogen D-Dimer ABG pH POC ABG pCO2 POC ABG pO2 ABG pO2 ABG HCO3 ABG O2 Saturation ABG Base Excess ABG Hemoglobin ABG Oxyhemoglobin Oxyhemoglobin Sodium Potassium Chloride Carbon Dioxide BUN Creatinine Glucose 144 H POC Glucose Lactic Acid Calcium Phosphorus Magnesium AST ALT Alkaline Phosphatase C-Reactive Protein Total Protein Albumin Triglycerides Ur Specific [place] Urine Creatinine Crossmatch See Detail 06/11/21 06/11/21 06/11/21 19:29 19:29 23:21 WBC 15.8 H RBC Hgb 9.4 L Hct MCV 72 L MCH 22 L RDW 17.4 H Plt Count Lymph % (Auto) 9.2 L [place] % (Auto) Lymph # (Auto) [place] # (Auto) Seg Neutrophils % 89.0 H Seg Neuts % (Manual) Lymphocytes % (Manual) Monocytes % (Manual) Seg Neutrophils # 14.0 H Seg Neutrophils # Man Lymphocytes # (Manual) Monocytes # (Manual) PT 72.9 H INR 8.18 H* APTT 71.7 H* Fibrinogen D-Dimer ABG pH POC ABG pCO2 POC ABG pO2 ABG pO2 ABG HCO3 ABG O2 Saturation ABG Base Excess ABG Hemoglobin ABG Oxyhemoglobin Oxyhemoglobin Sodium 149 H D Potassium Chloride 124.3 H Carbon Dioxide 8 L* D BUN Creatinine 0.3 L Glucose 628 H* POC Glucose Lactic Acid Calcium 2.4 L* D Phosphorus Magnesium AST ALT < 5 L Alkaline Phosphatase 19 L C-Reactive Protein Total Protein 1.6 L D Albumin 0.8 L Triglycerides Ur Specific [place] Urine Creatinine Crossmatch 06/11/21 06/11/21 06/11/21 23:21 23:22 23:42 WBC RBC Hgb Hct MCV MCH 27 L RDW 22.2 H Plt Count 131 L Lymph % (Auto) [place] % (Auto) Lymph # (Auto) [place] # (Auto) Seg Neutrophils % Seg Neuts % (Manual) Lymphocytes % (Manual) Monocytes % (Manual) Seg Neutrophils # Seg Neutrophils # Man Lymphocytes # (Manual) Monocytes # (Manual) PT 46.3 H INR 4.55 H APTT 54.8 H Fibrinogen D-Dimer ABG pH POC ABG pCO2 POC ABG pO2 325.9 H ABG pO2 ABG HCO3 ABG O2 Saturation ABG Base Excess ABG Hemoglobin 8.0 L ABG Oxyhemoglobin 99.0 H Oxyhemoglobin Sodium Potassium Chloride Carbon Dioxide BUN Creatinine Glucose POC Glucose Lactic Acid Calcium Phosphorus Magnesium AST ALT Alkaline Phosphatase C-Reactive Protein Total Protein Albumin Triglycerides Ur Specific [place] Urine Creatinine Crossmatch 06/12/21 06/12/21 06/12/21 01:45 01:45 01:45 WBC 21.6 H RBC 3.04 L Hgb 6.7 L D Hct 22.4 L D MCV 74 L MCH 22 L RDW 18.9 H Plt Count Lymph % (Auto) [place] % (Auto) Lymph # (Auto) [place] # (Auto) Seg Neutrophils % Seg Neuts % (Manual) 76.0 H Lymphocytes % (Manual) 2.0 L Monocytes % (Manual) 8.0 H Seg Neutrophils # Seg Neutrophils # Man 16.4 H Lymphocytes # (Manual) 0.4 L Monocytes # (Manual) 1.7 H PT 25.4 H INR 2.10 H APTT Fibrinogen D-Dimer ABG pH POC ABG pCO2 POC ABG pO2 ABG pO2 ABG HCO3 ABG O2 Saturation ABG Base Excess ABG Hemoglobin ABG Oxyhemoglobin Oxyhemoglobin Sodium Potassium 5.6 H D Chloride Carbon Dioxide 20 L D BUN Creatinine Glucose 368 H POC Glucose Lactic Acid Calcium 7.1 L D Phosphorus Magnesium AST ALT Alkaline Phosphatase C-Reactive Protein Total Protein 5.3 L D Albumin 3.1 L Triglycerides Ur Specific [place] Urine Creatinine Crossmatch 06/12/21 06/12/21 06/12/21 02:05 04:41 11:05 WBC 14.6 H RBC 3.52 L Hgb 8.5 L Hct 27.7 L MCV MCH 24 L RDW 20.9 H Plt Count Lymph % (Auto) [place] % (Auto) Lymph # (Auto) [place] # (Auto) Seg Neutrophils % Seg Neuts % (Manual) Lymphocytes % (Manual) Monocytes % (Manual) Seg Neutrophils # Seg Neutrophils # Man Lymphocytes # (Manual) Monocytes # (Manual) PT INR APTT Fibrinogen D-Dimer ABG pH POC ABG pCO2 POC ABG pO2 224.6 H ABG pO2 ABG HCO3 ABG O2 Saturation ABG Base Excess ABG Hemoglobin 7.3 L ABG Oxyhemoglobin 98.7 H Oxyhemoglobin Sodium Potassium Chloride Carbon Dioxide BUN Creatinine Glucose POC Glucose 308 H Lactic Acid Calcium Phosphorus Magnesium AST ALT Alkaline Phosphatase C-Reactive Protein Total Protein Albumin Triglycerides Ur Specific [place] Urine Creatinine Crossmatch 06/12/21 06/12/21 06/12/21 11:05 11:05 12:18 WBC RBC Hgb Hct MCV MCH RDW Plt Count Lymph % (Auto) [place] % (Auto) Lymph # (Auto) [place] # (Auto) Seg Neutrophils % Seg Neuts % (Manual) Lymphocytes % (Manual) Monocytes % (Manual) Seg Neutrophils # Seg Neutrophils # Man Lymphocytes # (Manual) Monocytes # (Manual) PT 16.8 H INR 1.23 H APTT Fibrinogen D-Dimer ABG pH POC ABG pCO2 POC ABG pO2 ABG pO2 ABG HCO3 ABG O2 Saturation ABG Base Excess ABG Hemoglobin ABG Oxyhemoglobin Oxyhemoglobin Sodium Potassium Chloride Carbon Dioxide BUN 24 H Creatinine Glucose 324 H POC Glucose 281 H Lactic Acid Calcium 7.5 L Phosphorus Magnesium AST 70 H ALT 57 H Alkaline Phosphatase C-Reactive Protein Total Protein 6.0 L Albumin 3.6 L Triglycerides Ur Specific [place] Urine Creatinine Crossmatch 06/12/21 06/12/21 06/12/21 17:00 17:00 17:00 WBC RBC Hgb 7.5 L Hct 24.0 L MCV MCH RDW Plt Count Lymph % (Auto) [place] % (Auto) Lymph # (Auto) [place] # (Auto) Seg Neutrophils % Seg Neuts % (Manual) Lymphocytes % (Manual) Monocytes % (Manual) Seg Neutrophils # Seg Neutrophils # Man Lymphocytes # (Manual) Monocytes # (Manual) PT 16.0 H INR 1.16 H APTT Fibrinogen D-Dimer ABG pH POC ABG pCO2 POC ABG pO2 ABG pO2 ABG HCO3 ABG O2 Saturation ABG Base Excess ABG Hemoglobin ABG Oxyhemoglobin Oxyhemoglobin Sodium Potassium Chloride Carbon Dioxide BUN Creatinine Glucose POC Glucose Lactic Acid Calcium Phosphorus Magnesium AST ALT Alkaline Phosphatase C-Reactive Protein Total Protein Albumin Triglycerides Ur Specific [place] 1.035 H Urine Creatinine Crossmatch 06/12/21 06/12/21 06/12/21 18:06 23:00 23:05 WBC RBC Hgb 7.6 L Hct 23.5 L MCV MCH RDW Plt Count Lymph % (Auto) [place] % (Auto) Lymph # (Auto) [place] # (Auto) Seg Neutrophils % Seg Neuts % (Manual) Lymphocytes % (Manual) Monocytes % (Manual) Seg Neutrophils # Seg Neutrophils # Man Lymphocytes # (Manual) Monocytes # (Manual) PT INR APTT Fibrinogen D-Dimer ABG pH POC ABG pCO2 POC ABG pO2 ABG pO2 ABG HCO3 ABG O2 Saturation ABG Base Excess ABG Hemoglobin ABG Oxyhemoglobin Oxyhemoglobin Sodium Potassium Chloride Carbon Dioxide BUN Creatinine Glucose POC Glucose 257 H 300 H Lactic Acid Calcium Phosphorus Magnesium AST ALT Alkaline Phosphatase C-Reactive Protein Total Protein Albumin Triglycerides Ur Specific [place] Urine Creatinine Crossmatch 06/13/21 06/13/21 06/13/21 04:31 05:19 07:30 WBC RBC Hgb 6.8 L Hct 21.7 L MCV MCH RDW Plt Count Lymph % (Auto) [place] % (Auto) Lymph # (Auto) [place] # (Auto) Seg Neutrophils % Seg Neuts % (Manual) Lymphocytes % (Manual) Monocytes % (Manual) Seg Neutrophils # Seg Neutrophils # Man Lymphocytes # (Manual) Monocytes # (Manual) PT INR APTT Fibrinogen D-Dimer ABG pH 7.541 H POC ABG pCO2 25.6 L POC ABG pO2 138.8 H ABG pO2 ABG HCO3 ABG O2 Saturation ABG Base Excess ABG Hemoglobin 7.3 L ABG Oxyhemoglobin 98.1 H Oxyhemoglobin Sodium Potassium Chloride Carbon Dioxide BUN Creatinine Glucose POC Glucose 286 H Lactic Acid Calcium Phosphorus Magnesium AST ALT Alkaline Phosphatase C-Reactive Protein Total Protein Albumin Triglycerides Ur Specific [place] Urine Creatinine Crossmatch 06/13/21 06/13/21 06/13/21 07:30 12:04 14:50 WBC RBC Hgb Hct MCV MCH RDW Plt Count Lymph % (Auto) [place] % (Auto) Lymph # (Auto) [place] # (Auto) Seg Neutrophils % Seg Neuts % (Manual) Lymphocytes % (Manual) Monocytes % (Manual) Seg Neutrophils # Seg Neutrophils # Man Lymphocytes # (Manual) Monocytes # (Manual) PT INR APTT Fibrinogen D-Dimer ABG pH 7.039 L* 7.182 L* POC ABG pCO2 POC ABG pO2 ABG pO2 63.1 L ABG HCO3 17.4 L ABG O2 Saturation 73.4 L ABG Base Excess -12.6 L -7.1 L ABG Hemoglobin 7.7 L 6.9 L ABG Oxyhemoglobin Oxyhemoglobin 71.8 L 93.5 L Sodium Potassium Chloride 108.9 H Carbon Dioxide BUN 28 H Creatinine Glucose 293 H POC Glucose Lactic Acid Calcium 7.2 L Phosphorus Magnesium AST 106 H ALT 92 H Alkaline Phosphatase C-Reactive Protein Total Protein 5.6 L Albumin 3.3 L Triglycerides Ur Specific [place] Urine Creatinine Crossmatch 06/13/21 06/13/21 06/13/21 14:54 15:45 17:34 WBC RBC Hgb Hct MCV MCH RDW Plt Count Lymph % (Auto) [place] % (Auto) Lymph # (Auto) [place] # (Auto) Seg Neutrophils % Seg Neuts % (Manual) Lymphocytes % (Manual) Monocytes % (Manual) Seg Neutrophils # Seg Neutrophils # Man Lymphocytes # (Manual) Monocytes # (Manual) PT INR APTT Fibrinogen D-Dimer ABG pH POC ABG pCO2 POC ABG pO2 ABG pO2 178.4 H ABG HCO3 ABG O2 Saturation 99.1 H ABG Base Excess ABG Hemoglobin 8.0 L ABG Oxyhemoglobin Oxyhemoglobin Sodium Potassium Chloride 107.3 H Carbon Dioxide 19 L BUN 33 H Creatinine 1.5 H Glucose 379 H POC Glucose Lactic Acid 5.30 H* Calcium 6.8 L Phosphorus Magnesium AST ALT Alkaline Phosphatase C-Reactive Protein Total Protein Albumin Triglycerides Ur Specific [place] Urine Creatinine Crossmatch 06/13/21 06/13/21 06/13/21 17:40 23:29 Unknown WBC 22.5 H RBC 3.16 L Hgb 8.0 L Hct 26.0 L MCV MCH 26 L RDW 21.4 H Plt Count Lymph % (Auto) [place] % (Auto) Lymph # (Auto) [place] # (Auto) Seg Neutrophils % Seg Neuts % (Manual) 88.0 H Lymphocytes % (Manual) 4.0 L Monocytes % (Manual) Seg Neutrophils # Seg Neutrophils # Man 19.8 H Lymphocytes # (Manual) 0.9 L Monocytes # (Manual) 1.4 H PT INR APTT Fibrinogen D-Dimer ABG pH POC ABG pCO2 POC ABG pO2 ABG pO2 ABG HCO3 ABG O2 Saturation ABG Base Excess ABG Hemoglobin ABG Oxyhemoglobin Oxyhemoglobin Sodium Potassium Chloride Carbon Dioxide BUN Creatinine Glucose POC Glucose 294 H 288 H Lactic Acid Calcium Phosphorus Magnesium AST ALT Alkaline Phosphatase C-Reactive Protein Total Protein Albumin Triglycerides Ur Specific [place] Urine Creatinine Crossmatch 06/13/21 06/14/21 06/14/21 Unknown 05:39 06:15 WBC RBC 2.93 L Hgb 7.2 L Hct 23.2 L MCV MCH 25 L RDW 21.2 H Plt Count Lymph % (Auto) [place] % (Auto) Lymph # (Auto) [place] # (Auto) Seg Neutrophils % Seg Neuts % (Manual) Lymphocytes % (Manual) Monocytes % (Manual) Seg Neutrophils # Seg Neutrophils # Man Lymphocytes # (Manual) Monocytes # (Manual) PT 17.6 H INR 1.31 H APTT Fibrinogen 546 H D-Dimer 1244.63 H ABG pH POC ABG pCO2 POC ABG pO2 ABG pO2 ABG HCO3 ABG O2 Saturation ABG Base Excess ABG Hemoglobin ABG Oxyhemoglobin Oxyhemoglobin Sodium Potassium Chloride Carbon Dioxide BUN Creatinine Glucose POC Glucose 246 H Lactic Acid Calcium Phosphorus Magnesium AST ALT Alkaline Phosphatase C-Reactive Protein Total Protein Albumin Triglycerides Ur Specific [place] Urine Creatinine Crossmatch 06/14/21 06/14/21 06/14/21 06:15 06:15 09:13 WBC RBC Hgb Hct MCV MCH RDW Plt Count Lymph % (Auto) [place] % (Auto) Lymph # (Auto) [place] # (Auto) Seg Neutrophils % Seg Neuts % (Manual) Lymphocytes % (Manual) Monocytes % (Manual) Seg Neutrophils # Seg Neutrophils # Man Lymphocytes # (Manual) Monocytes # (Manual) PT INR APTT Fibrinogen D-Dimer ABG pH POC ABG pCO2 POC ABG pO2 ABG pO2 183.0 H ABG HCO3 ABG O2 Saturation 99.2 H ABG Base Excess ABG Hemoglobin 6.6 L ABG Oxyhemoglobin Oxyhemoglobin Sodium 147 H Potassium Chloride 112.5 H Carbon Dioxide 21 L BUN 36 H Creatinine 1.4 H Glucose 281 H POC Glucose Lactic Acid Calcium 6.9 L Phosphorus Magnesium AST ALT Alkaline Phosphatase C-Reactive Protein Total Protein Albumin Triglycerides 189 H Ur Specific [place] Urine Creatinine Crossmatch 06/14/21 06/14/21 06/14/21 10:45 12:16 13:30 WBC RBC Hgb 7.1 L Hct 22.3 L MCV MCH RDW Plt Count Lymph % (Auto) [place] % (Auto) Lymph # (Auto) [place] # (Auto) Seg Neutrophils % Seg Neuts % (Manual) Lymphocytes % (Manual) Monocytes % (Manual) Seg Neutrophils # Seg Neutrophils # Man Lymphocytes # (Manual) Monocytes # (Manual) PT INR APTT Fibrinogen D-Dimer ABG pH 7.205 L POC ABG pCO2 POC ABG pO2 ABG pO2 261.3 H ABG HCO3 ABG O2 Saturation 99.4 H ABG Base Excess -7.2 L ABG Hemoglobin 7.6 L ABG Oxyhemoglobin Oxyhemoglobin Sodium Potassium Chloride Carbon Dioxide BUN Creatinine Glucose POC Glucose 174 H Lactic Acid Calcium Phosphorus Magnesium AST ALT Alkaline Phosphatase C-Reactive Protein Total Protein Albumin Triglycerides Ur Specific [place] Urine Creatinine Crossmatch 06/14/21 06/14/21 06/15/21 17:40 18:43 00:06 WBC RBC Hgb Hct MCV MCH RDW Plt Count Lymph % (Auto) [place] % (Auto) Lymph # (Auto) [place] # (Auto) Seg Neutrophils % Seg Neuts % (Manual) Lymphocytes % (Manual) Monocytes % (Manual) Seg Neutrophils # Seg Neutrophils # Man Lymphocytes # (Manual) Monocytes # (Manual) PT INR APTT Fibrinogen D-Dimer ABG pH 7.292 L POC ABG pCO2 POC ABG pO2 ABG pO2 78.8 L ABG HCO3 ABG O2 Saturation ABG Base Excess -5.0 L ABG Hemoglobin 9.1 L ABG Oxyhemoglobin Oxyhemoglobin 93.7 L Sodium Potassium Chloride Carbon Dioxide BUN Creatinine Glucose POC Glucose 182 H 144 H Lactic Acid Calcium Phosphorus Magnesium AST ALT Alkaline Phosphatase C-Reactive Protein Total Protein Albumin Triglycerides Ur Specific [place] Urine Creatinine Crossmatch 06/15/21 06/15/21 06/15/21 03:55 03:56 10:40 WBC RBC Hgb 8.4 L Hct 25.8 L MCV MCH RDW Plt Count Lymph % (Auto) [place] % (Auto) Lymph # (Auto) [place] # (Auto) Seg Neutrophils % Seg Neuts % (Manual) Lymphocytes % (Manual) Monocytes % (Manual) Seg Neutrophils # Seg Neutrophils # Man Lymphocytes # (Manual) Monocytes # (Manual) PT INR APTT Fibrinogen D-Dimer ABG pH POC ABG pCO2 POC ABG pO2 ABG pO2 ABG HCO3 ABG O2 Saturation ABG Base Excess ABG Hemoglobin ABG Oxyhemoglobin Oxyhemoglobin Sodium 147 H Potassium Chloride 112.2 H Carbon Dioxide 21 L BUN 47 H Creatinine 1.9 H Glucose 272 H POC Glucose Lactic Acid Calcium 7.3 L Phosphorus Magnesium AST 64 H ALT 106 H Alkaline Phosphatase C-Reactive Protein Total Protein 5.1 L Albumin 2.9 L Triglycerides Ur Specific [place] Urine Creatinine 81.1 H Crossmatch 06/15/21 06/15/21 06/15/21 11:46 17:16 23:17 WBC RBC Hgb Hct MCV MCH RDW Plt Count Lymph % (Auto) [place] % (Auto) Lymph # (Auto) [place] # (Auto) Seg Neutrophils % Seg Neuts % (Manual) Lymphocytes % (Manual) Monocytes % (Manual) Seg Neutrophils # Seg Neutrophils # Man Lymphocytes # (Manual) Monocytes # (Manual) PT INR APTT Fibrinogen D-Dimer ABG pH POC ABG pCO2 POC ABG pO2 ABG pO2 ABG HCO3 ABG O2 Saturation ABG Base Excess ABG Hemoglobin ABG Oxyhemoglobin Oxyhemoglobin Sodium Potassium Chloride Carbon Dioxide BUN Creatinine Glucose POC Glucose 271 H 268 H 264 H Lactic Acid Calcium Phosphorus Magnesium AST ALT Alkaline Phosphatase C-Reactive Protein Total Protein Albumin Triglycerides Ur Specific [place] Urine Creatinine Crossmatch 06/15/21 06/15/21 06/16/21 Unknown Unknown 04:32 WBC RBC 3.21 L 3.16 L Hgb 8.4 L 8.2 L Hct 26.1 L 25.4 L MCV MCH 26 L 26 L RDW 21.3 H 21.2 H Plt Count 105 L 118 L Lymph % (Auto) [place] % (Auto) Lymph # (Auto) [place] # (Auto) Seg Neutrophils % Seg Neuts % (Manual) Lymphocytes % (Manual) Monocytes % (Manual) Seg Neutrophils # Seg Neutrophils # Man Lymphocytes # (Manual) Monocytes # (Manual) PT INR APTT Fibrinogen D-Dimer ABG pH 7.465 H POC ABG pCO2 POC ABG pO2 ABG pO2 114.1 H ABG HCO3 ABG O2 Saturation ABG Base Excess ABG Hemoglobin 8.4 L ABG Oxyhemoglobin Oxyhemoglobin Sodium Potassium Chloride Carbon Dioxide BUN Creatinine Glucose POC Glucose Lactic Acid Calcium Phosphorus Magnesium AST ALT Alkaline Phosphatase C-Reactive Protein Total Protein Albumin Triglycerides Ur Specific [place] Urine Creatinine Crossmatch 06/16/21 06/16/21 06/16/21 04:32 04:32 05:08 WBC RBC Hgb Hct MCV MCH RDW Plt Count Lymph % (Auto) [place] % (Auto) Lymph # (Auto) [place] # (Auto) Seg Neutrophils % Seg Neuts % (Manual) Lymphocytes % (Manual) Monocytes % (Manual) Seg Neutrophils # Seg Neutrophils # Man Lymphocytes # (Manual) Monocytes # (Manual) PT INR APTT Fibrinogen D-Dimer ABG pH POC ABG pCO2 POC ABG pO2 ABG pO2 ABG HCO3 ABG O2 Saturation ABG Base Excess ABG Hemoglobin ABG Oxyhemoglobin Oxyhemoglobin Sodium 148 H Potassium 3.3 L Chloride 115.1 H Carbon Dioxide 21 L BUN 54 H Creatinine 1.6 H Glucose 367 H POC Glucose 356 H Lactic Acid Calcium 7.4 L Phosphorus Magnesium AST ALT Alkaline Phosphatase C-Reactive Protein 3.30 H Total Protein Albumin Triglycerides Ur Specific [place] Urine Creatinine Crossmatch 06/16/21 06/16/21 06/16/21 05:30 11:46 17:03 WBC RBC Hgb Hct MCV MCH RDW Plt Count Lymph % (Auto) [place] % (Auto) Lymph # (Auto) [place] # (Auto) Seg Neutrophils % Seg Neuts % (Manual) Lymphocytes % (Manual) Monocytes % (Manual) Seg Neutrophils # Seg Neutrophils # Man Lymphocytes # (Manual) Monocytes # (Manual) PT INR APTT Fibrinogen D-Dimer ABG pH 7.475 H POC ABG pCO2 POC ABG pO2 ABG pO2 171.8 H ABG HCO3 ABG O2 Saturation 99.1 H ABG Base Excess ABG Hemoglobin 11.7 L ABG Oxyhemoglobin Oxyhemoglobin Sodium Potassium Chloride Carbon Dioxide BUN Creatinine Glucose POC Glucose 309 H 345 H Lactic Acid Calcium Phosphorus Magnesium AST ALT Alkaline Phosphatase C-Reactive Protein Total Protein Albumin Triglycerides Ur Specific [place] Urine Creatinine Crossmatch 02/06/16/21 06/17/21 20:18 23:22 04:50 WBC RBC Hgb Hct MCV MCH RDW Plt Count Lymph % (Auto) [place] % (Auto) Lymph # (Auto) [place] # (Auto) Seg Neutrophils % Seg Neuts % (Manual) Lymphocytes % (Manual) Monocytes % (Manual) Seg Neutrophils # Seg Neutrophils # Man Lymphocytes # (Manual) Monocytes # (Manual) PT INR APTT Fibrinogen D-Dimer ABG pH 7.479 H POC ABG pCO2 POC ABG pO2 ABG pO2 143.1 H ABG HCO3 ABG O2 Saturation ABG Base Excess ABG Hemoglobin 10.0 L ABG Oxyhemoglobin Oxyhemoglobin Sodium Potassium Chloride Carbon Dioxide BUN Creatinine Glucose POC Glucose 325 H 315 H Lactic Acid Calcium Phosphorus Magnesium AST ALT Alkaline Phosphatase C-Reactive Protein Total Protein Albumin Triglycerides Ur Specific [place] Urine Creatinine Crossmatch 06/17/21 06/17/21 06/17/21 05:18 05:30 05:30 WBC RBC 3.17 L Hgb 8.2 L Hct 25.5 L MCV MCH 26 L RDW 21.2 H Plt Count 128 L Lymph % (Auto) [place] % (Auto) Lymph # (Auto) [place] # (Auto) Seg Neutrophils % Seg Neuts % (Manual) Lymphocytes % (Manual) Monocytes % (Manual) Seg Neutrophils # Seg Neutrophils # Man Lymphocytes # (Manual) Monocytes # (Manual) PT INR APTT Fibrinogen D-Dimer ABG pH POC ABG pCO2 POC ABG pO2 ABG pO2 ABG HCO3 ABG O2 Saturation ABG Base Excess ABG Hemoglobin ABG Oxyhemoglobin Oxyhemoglobin Sodium 148 H Potassium Chloride 113.7 H Carbon Dioxide 20 L BUN 57 H Creatinine 1.4 H Glucose 351 H POC Glucose 324 H Lactic Acid Calcium 8.0 L Phosphorus 2.30 L Magnesium AST ALT Alkaline Phosphatase C-Reactive Protein Total Protein Albumin Triglycerides Ur Specific [place] Urine Creatinine Crossmatch 06/17/21 06/17/21 06/17/21 11:49 17:43 21:42 WBC RBC Hgb Hct MCV MCH RDW Plt Count Lymph % (Auto) [place] % (Auto) Lymph # (Auto) [place] # (Auto) Seg Neutrophils % Seg Neuts % (Manual) Lymphocytes % (Manual) Monocytes % (Manual) Seg Neutrophils # Seg Neutrophils # Man Lymphocytes # (Manual) Monocytes # (Manual) PT INR APTT Fibrinogen D-Dimer ABG pH POC ABG pCO2 POC ABG pO2 ABG pO2 ABG HCO3 ABG O2 Saturation ABG Base Excess ABG Hemoglobin ABG Oxyhemoglobin Oxyhemoglobin Sodium Potassium Chloride Carbon Dioxide BUN Creatinine Glucose POC Glucose 305 H 307 H 286 H Lactic Acid Calcium Phosphorus Magnesium AST ALT Alkaline Phosphatase C-Reactive Protein Total Protein Albumin Triglycerides Ur Specific [place] Urine Creatinine Crossmatch 06/17/21 06/18/21 06/18/21 23:59 04:20 04:37 WBC RBC 3.53 L Hgb 9.1 L Hct 28.7 L MCV MCH 26 L RDW 21.3 H Plt Count Lymph % (Auto) [place] % (Auto) Lymph # (Auto) [place] # (Auto) Seg Neutrophils % Seg Neuts % (Manual) Lymphocytes % (Manual) Monocytes % (Manual) Seg Neutrophils # Seg Neutrophils # Man Lymphocytes # (Manual) Monocytes # (Manual) PT INR APTT Fibrinogen D-Dimer ABG pH 7.495 H POC ABG pCO2 POC ABG pO2 ABG pO2 108.3 H ABG HCO3 ABG O2 Saturation ABG Base Excess -2.1 L ABG Hemoglobin 10.0 L ABG Oxyhemoglobin Oxyhemoglobin Sodium Potassium Chloride Carbon Dioxide BUN Creatinine Glucose POC Glucose 264 H Lactic Acid Calcium Phosphorus Magnesium AST ALT Alkaline Phosphatase C-Reactive Protein Total Protein Albumin Triglycerides Ur Specific [place] Urine Creatinine Crossmatch 06/18/21 06/18/21 06/18/21 04:37 05:32 11:21 WBC RBC Hgb Hct MCV MCH RDW Plt Count Lymph % (Auto) [place] % (Auto) Lymph # (Auto) [place] # (Auto) Seg Neutrophils % Seg Neuts % (Manual) Lymphocytes % (Manual) Monocytes % (Manual) Seg Neutrophils # Seg Neutrophils # Man Lymphocytes # (Manual) Monocytes # (Manual) PT INR APTT Fibrinogen D-Dimer ABG pH POC ABG pCO2 POC ABG pO2 ABG pO2 ABG HCO3 ABG O2 Saturation ABG Base Excess ABG Hemoglobin ABG Oxyhemoglobin Oxyhemoglobin Sodium 148 H Potassium Chloride 114.7 H Carbon Dioxide BUN 59 H Creatinine 1.3 H Glucose 329 H POC Glucose 293 H 291 H Lactic Acid Calcium 8.1 L Phosphorus Magnesium AST ALT Alkaline Phosphatase C-Reactive Protein Total Protein Albumin Triglycerides Ur Specific [place] Urine Creatinine Crossmatch 06/18/21 06/18/21 06/19/21 18:21 21:46 00:15 WBC RBC Hgb Hct MCV MCH RDW Plt Count Lymph % (Auto) [place] % (Auto) Lymph # (Auto) [place] # (Auto) Seg Neutrophils % Seg Neuts % (Manual) Lymphocytes % (Manual) Monocytes % (Manual) Seg Neutrophils # Seg Neutrophils # Man Lymphocytes # (Manual) Monocytes # (Manual) PT INR APTT Fibrinogen D-Dimer ABG pH POC ABG pCO2 POC ABG pO2 ABG pO2 ABG HCO3 ABG O2 Saturation ABG Base Excess ABG Hemoglobin ABG Oxyhemoglobin Oxyhemoglobin Sodium Potassium Chloride Carbon Dioxide BUN Creatinine Glucose POC Glucose 239 H 259 H 310 H Lactic Acid Calcium Phosphorus Magnesium AST ALT Alkaline Phosphatase C-Reactive Protein Total Protein Albumin Triglycerides Ur Specific [place] Urine Creatinine Crossmatch 06/19/21 06/19/21 06/19/21 04:00 04:00 04:50 WBC RBC 3.64 L Hgb 9.1 L Hct 29.1 L MCV MCH 25 L RDW 21.5 H Plt Count Lymph % (Auto) [place] % (Auto) Lymph # (Auto) [place] # (Auto) Seg Neutrophils % Seg Neuts % (Manual) Lymphocytes % (Manual) Monocytes % (Manual) Seg Neutrophils # Seg Neutrophils # Man Lymphocytes # (Manual) Monocytes # (Manual) PT INR APTT Fibrinogen D-Dimer ABG pH POC ABG pCO2 POC ABG pO2 ABG pO2 78.9 L ABG HCO3 ABG O2 Saturation ABG Base Excess -3.2 L ABG Hemoglobin 7.6 L ABG Oxyhemoglobin Oxyhemoglobin Sodium 148 H Potassium Chloride 114.9 H Carbon Dioxide 19 L BUN 59 H Creatinine Glucose 345 H POC Glucose Lactic Acid Calcium 8.1 L Phosphorus 4.60 H D Magnesium 2.40 H AST ALT Alkaline Phosphatase C-Reactive Protein Total Protein Albumin Triglycerides Ur Specific [place] Urine Creatinine Crossmatch 06/19/21 06/19/21 06/19/21 06:28 11:11 17:20 WBC RBC Hgb Hct MCV MCH RDW Plt Count Lymph % (Auto) [place] % (Auto) Lymph # (Auto) [place] # (Auto) Seg Neutrophils % Seg Neuts % (Manual) Lymphocytes % (Manual) Monocytes % (Manual) Seg Neutrophils # Seg Neutrophils # Man Lymphocytes # (Manual) Monocytes # (Manual) PT 29.7 H INR 2.57 H APTT Fibrinogen D-Dimer ABG pH POC ABG pCO2 POC ABG pO2 ABG pO2 ABG HCO3 ABG O2 Saturation ABG Base Excess ABG Hemoglobin ABG Oxyhemoglobin Oxyhemoglobin Sodium Potassium Chloride Carbon Dioxide BUN Creatinine Glucose POC Glucose 279 H 275 H Lactic Acid Calcium Phosphorus Magnesium AST ALT Alkaline Phosphatase C-Reactive Protein Total Protein Albumin Triglycerides Ur Specific [place] Urine Creatinine Crossmatch 06/19/21 06/19/21 06/19/21 18:30 19:20 23:27 WBC RBC Hgb 8.0 L Hct 25.0 L MCV MCH RDW Plt Count Lymph % (Auto) [place] % (Auto) Lymph # (Auto) [place] # (Auto) Seg Neutrophils % Seg Neuts % (Manual) Lymphocytes % (Manual) Monocytes % (Manual) Seg Neutrophils # Seg Neutrophils # Man Lymphocytes # (Manual) Monocytes # (Manual) PT INR APTT Fibrinogen D-Dimer ABG pH POC ABG pCO2 POC ABG pO2 ABG pO2 ABG HCO3 ABG O2 Saturation ABG Base Excess ABG Hemoglobin ABG Oxyhemoglobin Oxyhemoglobin Sodium Potassium Chloride Carbon Dioxide BUN Creatinine Glucose POC Glucose 279 H 290 H Lactic Acid Calcium Phosphorus Magnesium AST ALT Alkaline Phosphatase C-Reactive Protein Total Protein Albumin Triglycerides Ur Specific [place] Urine Creatinine Crossmatch 06/20/21 06/20/21 06/20/21 00:00 04:33 04:33 WBC 22.3 H RBC 3.31 L Hgb 7.4 L 8.5 L Hct 22.5 L 26.5 L MCV MCH 26 L RDW 21.5 H Plt Count Lymph % (Auto) [place] % (Auto) Lymph # (Auto) [place] # (Auto) Seg Neutrophils % Seg Neuts % (Manual) Lymphocytes % (Manual) Monocytes % (Manual) Seg Neutrophils # Seg Neutrophils # Man Lymphocytes # (Manual) Monocytes # (Manual) PT INR APTT Fibrinogen D-Dimer ABG pH POC ABG pCO2 POC ABG pO2 ABG pO2 ABG HCO3 ABG O2 Saturation ABG Base Excess ABG Hemoglobin ABG Oxyhemoglobin Oxyhemoglobin Sodium 148 H Potassium Chloride 114.2 H Carbon Dioxide BUN 70 H Creatinine 1.4 H Glucose 313 H POC Glucose Lactic Acid Calcium 8.2 L Phosphorus Magnesium 2.50 H AST ALT Alkaline Phosphatase C-Reactive Protein Total Protein Albumin Triglycerides Ur Specific [place] Urine Creatinine Crossmatch 06/20/21 06/20/21 06/20/21 04:33 05:27 11:21 WBC RBC Hgb Hct MCV MCH RDW Plt Count Lymph % (Auto) [place] % (Auto) Lymph # (Auto) [place] # (Auto) Seg Neutrophils % Seg Neuts % (Manual) Lymphocytes % (Manual) Monocytes % (Manual) Seg Neutrophils # Seg Neutrophils # Man Lymphocytes # (Manual) Monocytes # (Manual) PT 18.3 H INR 1.37 H APTT Fibrinogen D-Dimer ABG pH POC ABG pCO2 POC ABG pO2 ABG pO2 ABG HCO3 ABG O2 Saturation ABG Base Excess ABG Hemoglobin ABG Oxyhemoglobin Oxyhemoglobin Sodium Potassium Chloride Carbon Dioxide BUN Creatinine Glucose POC Glucose 288 H 306 H Lactic Acid Calcium Phosphorus Magnesium AST ALT Alkaline Phosphatase C-Reactive Protein Total Protein Albumin Triglycerides Ur Specific [place] Urine Creatinine Crossmatch 06/20/21 06/20/21 06/20/21 12:23 15:56 18:20 WBC RBC Hgb 8.2 L 8.1 L Hct 25.9 L 25.5 L MCV MCH RDW Plt Count Lymph % (Auto) [place] % (Auto) Lymph # (Auto) [place] # (Auto) Seg Neutrophils % Seg Neuts % (Manual) Lymphocytes % (Manual) Monocytes % (Manual) Seg Neutrophils # Seg Neutrophils # Man Lymphocytes # (Manual) Monocytes # (Manual) PT INR APTT Fibrinogen D-Dimer ABG pH POC ABG pCO2 POC ABG pO2 ABG pO2 ABG HCO3 ABG O2 Saturation ABG Base Excess ABG Hemoglobin ABG Oxyhemoglobin Oxyhemoglobin Sodium Potassium Chloride Carbon Dioxide BUN Creatinine Glucose POC Glucose 293 H Lactic Acid Calcium Phosphorus Magnesium AST ALT Alkaline Phosphatase C-Reactive Protein Total Protein Albumin Triglycerides Ur Specific [place] Urine Creatinine Crossmatch 06/20/21 06/21/21 06/21/21 23:11 04:20 04:42 WBC 15.1 H RBC 2.84 L Hgb 7.3 L Hct 23.1 L MCV MCH 26 L RDW 21.5 H Plt Count Lymph % (Auto) 3.5 L [place] % (Auto) 11.7 H Lymph # (Auto) 0.5 L [place] # (Auto) 1.8 H Seg Neutrophils % 84.7 H Seg Neuts % (Manual) Lymphocytes % (Manual) Monocytes % (Manual) Seg Neutrophils # 12.8 H Seg Neutrophils # Man Lymphocytes # (Manual) Monocytes # (Manual) PT INR APTT Fibrinogen D-Dimer ABG pH POC ABG pCO2 POC ABG pO2 ABG pO2 98.5 H ABG HCO3 ABG O2 Saturation ABG Base Excess ABG Hemoglobin 7.2 L ABG Oxyhemoglobin Oxyhemoglobin Sodium Potassium Chloride Carbon Dioxide BUN Creatinine Glucose POC Glucose 206 H Lactic Acid Calcium Phosphorus Magnesium AST ALT Alkaline Phosphatase C-Reactive Protein Total Protein Albumin Triglycerides Ur Specific [place] Urine Creatinine Crossmatch 06/21/21 06/21/21 06/21/21 04:42 05:08 11:06 WBC RBC Hgb Hct MCV MCH RDW Plt Count Lymph % (Auto) [place] % (Auto) Lymph # (Auto) [place] # (Auto) Seg Neutrophils % Seg Neuts % (Manual) Lymphocytes % (Manual) Monocytes % (Manual) Seg Neutrophils # Seg Neutrophils # Man Lymphocytes # (Manual) Monocytes # (Manual) PT INR APTT Fibrinogen D-Dimer ABG pH POC ABG pCO2 POC ABG pO2 ABG pO2 ABG HCO3 ABG O2 Saturation ABG Base Excess ABG Hemoglobin ABG Oxyhemoglobin Oxyhemoglobin Sodium 151 H Potassium Chloride 117.2 H Carbon Dioxide 21 L BUN 75 H Creatinine 1.6 H Glucose 216 H POC Glucose 190 H 204 H Lactic Acid Calcium 7.9 L Phosphorus Magnesium 2.60 H AST ALT Alkaline Phosphatase C-Reactive Protein Total Protein Albumin Triglycerides 254 H Ur Specific [place] Urine Creatinine Crossmatch 06/21/21 06/21/21 06/21/21 14:00 16:42 21:52 WBC RBC Hgb 7.1 L 7.2 L Hct 22.0 L 22.1 L MCV MCH RDW Plt Count Lymph % (Auto) [place] % (Auto) Lymph # (Auto) [place] # (Auto) Seg Neutrophils % Seg Neuts % (Manual) Lymphocytes % (Manual) Monocytes % (Manual) Seg Neutrophils # Seg Neutrophils # Man Lymphocytes # (Manual) Monocytes # (Manual) PT INR APTT Fibrinogen D-Dimer ABG pH POC ABG pCO2 POC ABG pO2 ABG pO2 ABG HCO3 ABG O2 Saturation ABG Base Excess ABG Hemoglobin ABG Oxyhemoglobin Oxyhemoglobin Sodium Potassium Chloride Carbon Dioxide BUN Creatinine Glucose POC Glucose 207 H Lactic Acid Calcium Phosphorus Magnesium AST ALT Alkaline Phosphatase C-Reactive Protein Total Protein Albumin Triglycerides Ur Specific [place] Urine Creatinine Crossmatch 06/21/21 06/22/21 06/22/21 23:29 04:30 04:30 WBC 16.8 H RBC 2.93 L Hgb 7.4 L Hct 23.9 L MCV MCH 25 L RDW 21.8 H Plt Count Lymph % (Auto) [place] % (Auto) Lymph # (Auto) [place] # (Auto) Seg Neutrophils % Seg Neuts % (Manual) Lymphocytes % (Manual) Monocytes % (Manual) Seg Neutrophils # Seg Neutrophils # Man Lymphocytes # (Manual) Monocytes # (Manual) PT INR APTT Fibrinogen D-Dimer ABG pH POC ABG pCO2 POC ABG pO2 ABG pO2 ABG HCO3 ABG O2 Saturation ABG Base Excess ABG Hemoglobin ABG Oxyhemoglobin Oxyhemoglobin Sodium 151 H Potassium Chloride 118.7 H Carbon Dioxide BUN 57 H Creatinine Glucose 238 H POC Glucose 273 H Lactic Acid Calcium 8.0 L Phosphorus Magnesium 2.70 H AST ALT Alkaline Phosphatase C-Reactive Protein Total Protein Albumin Triglycerides Ur Specific [place] Urine Creatinine Crossmatch 06/22/21 06/22/21 06/22/21 05:17 11:31 14:20 WBC RBC Hgb 7.4 L Hct 22.5 L MCV MCH RDW Plt Count Lymph % (Auto) [place] % (Auto) Lymph # (Auto) [place] # (Auto) Seg Neutrophils % Seg Neuts % (Manual) Lymphocytes % (Manual) Monocytes % (Manual) Seg Neutrophils # Seg Neutrophils # Man Lymphocytes # (Manual) Monocytes # (Manual) PT INR APTT Fibrinogen D-Dimer ABG pH POC ABG pCO2 POC ABG pO2 ABG pO2 ABG HCO3 ABG O2 Saturation ABG Base Excess ABG Hemoglobin ABG Oxyhemoglobin Oxyhemoglobin Sodium Potassium Chloride Carbon Dioxide BUN Creatinine Glucose POC Glucose 214 H 214 H Lactic Acid Calcium Phosphorus Magnesium AST ALT Alkaline Phosphatase C-Reactive Protein Total Protein Albumin Triglycerides Ur Specific [place] Urine Creatinine Crossmatch 06/22/21 06/22/21 06/23/21 17:18 23:47 05:33 WBC RBC Hgb Hct MCV MCH RDW Plt Count Lymph % (Auto) [place] % (Auto) Lymph # (Auto) [place] # (Auto) Seg Neutrophils % Seg Neuts % (Manual) Lymphocytes % (Manual) Monocytes % (Manual) Seg Neutrophils # Seg Neutrophils # Man Lymphocytes # (Manual) Monocytes # (Manual) PT INR APTT Fibrinogen D-Dimer ABG pH POC ABG pCO2 POC ABG pO2 ABG pO2 ABG HCO3 ABG O2 Saturation ABG Base Excess ABG Hemoglobin ABG Oxyhemoglobin Oxyhemoglobin Sodium Potassium Chloride Carbon Dioxide BUN Creatinine Glucose POC Glucose 238 H 227 H 202 H Lactic Acid Calcium Phosphorus Magnesium AST ALT Alkaline Phosphatase C-Reactive Protein Total Protein Albumin Triglycerides Ur Specific [place] Urine Creatinine Crossmatch 06/23/21 06/23/21 06/23/21 10:04 10:04 11:06 WBC 20.3 H RBC 2.71 L Hgb 7.3 L Hct 21.8 L MCV MCH 27 L RDW 22.1 H Plt Count Lymph % (Auto) [place] % (Auto) Lymph # (Auto) [place] # (Auto) Seg Neutrophils % Seg Neuts % (Manual) Lymphocytes % (Manual) Monocytes % (Manual) Seg Neutrophils # Seg Neutrophils # Man Lymphocytes # (Manual) Monocytes # (Manual) PT INR APTT Fibrinogen D-Dimer ABG pH POC ABG pCO2 POC ABG pO2 ABG pO2 ABG HCO3 ABG O2 Saturation ABG Base Excess ABG Hemoglobin ABG Oxyhemoglobin Oxyhemoglobin Sodium 151 H Potassium 3.2 L Chloride 116.9 H Carbon Dioxide BUN 40 H Creatinine Glucose 208 H POC Glucose 204 H Lactic Acid Calcium 8.0 L Phosphorus 1.80 L D Magnesium AST ALT Alkaline Phosphatase C-Reactive Protein Total Protein Albumin Triglycerides Ur Specific [place] Urine Creatinine Crossmatch 06/23/21 06/23/21 06/24/21 16:11 23:47 04:00 WBC 16.9 H RBC 2.49 L Hgb 6.6 L Hct 20.3 L MCV MCH 26 L RDW 22.6 H Plt Count Lymph % (Auto) [place] % (Auto) Lymph # (Auto) [place] # (Auto) Seg Neutrophils % Seg Neuts % (Manual) Lymphocytes % (Manual) Monocytes % (Manual) Seg Neutrophils # Seg Neutrophils # Man Lymphocytes # (Manual) Monocytes # (Manual) PT INR APTT Fibrinogen D-Dimer ABG pH POC ABG pCO2 POC ABG pO2 ABG pO2 ABG HCO3 ABG O2 Saturation ABG Base Excess ABG Hemoglobin ABG Oxyhemoglobin Oxyhemoglobin Sodium Potassium Chloride Carbon Dioxide BUN Creatinine Glucose POC Glucose 228 H 189 H Lactic Acid Calcium Phosphorus Magnesium AST ALT Alkaline Phosphatase C-Reactive Protein Total Protein Albumin Triglycerides Ur Specific [place] Urine Creatinine Crossmatch 06/24/21 06/24/21 06/24/21 04:00 05:43 06:40 WBC RBC Hgb Hct MCV MCH RDW Plt Count Lymph % (Auto) [place] % (Auto) Lymph # (Auto) [place] # (Auto) Seg Neutrophils % Seg Neuts % (Manual) Lymphocytes % (Manual) Monocytes % (Manual) Seg Neutrophils # Seg Neutrophils # Man Lymphocytes # (Manual) Monocytes # (Manual) PT INR APTT Fibrinogen D-Dimer ABG pH POC ABG pCO2 POC ABG pO2 ABG pO2 ABG HCO3 ABG O2 Saturation ABG Base Excess ABG Hemoglobin ABG Oxyhemoglobin Oxyhemoglobin Sodium 148 H Potassium 3.2 L Chloride 115.6 H Carbon Dioxide BUN 35 H Creatinine Glucose 153 H POC Glucose 134 H Lactic Acid Calcium 7.9 L Phosphorus 2.40 L D Magnesium AST ALT Alkaline Phosphatase C-Reactive Protein Total Protein Albumin Triglycerides Ur Specific [place] Urine Creatinine Crossmatch See Detail 06/24/21 06/24/21 06/24/21 11:08 16:47 21:49 WBC RBC Hgb Hct MCV MCH RDW Plt Count Lymph % (Auto) [place] % (Auto) Lymph # (Auto) [place] # (Auto) Seg Neutrophils % Seg Neuts % (Manual) Lymphocytes % (Manual) Monocytes % (Manual) Seg Neutrophils # Seg Neutrophils # Man Lymphocytes # (Manual) Monocytes # (Manual) PT INR APTT Fibrinogen D-Dimer ABG pH POC ABG pCO2 POC ABG pO2 ABG pO2 ABG HCO3 ABG O2 Saturation ABG Base Excess ABG Hemoglobin ABG Oxyhemoglobin Oxyhemoglobin Sodium Potassium Chloride Carbon Dioxide BUN Creatinine Glucose POC Glucose 153 H 201 H 132 H Lactic Acid Calcium Phosphorus Magnesium AST ALT Alkaline Phosphatase C-Reactive Protein Total Protein Albumin Triglycerides Ur Specific [place] Urine Creatinine Crossmatch 06/24/21 06/25/21 06/25/21 23:24 05:30 09:00 WBC RBC Hgb 8.3 L Hct 27.0 L MCV MCH RDW Plt Count Lymph % (Auto) [place] % (Auto) Lymph # (Auto) [place] # (Auto) Seg Neutrophils % Seg Neuts % (Manual) Lymphocytes % (Manual) Monocytes % (Manual) Seg Neutrophils # Seg Neutrophils # Man Lymphocytes # (Manual) Monocytes # (Manual) PT INR APTT Fibrinogen D-Dimer ABG pH POC ABG pCO2 POC ABG pO2 ABG pO2 ABG HCO3 ABG O2 Saturation ABG Base Excess ABG Hemoglobin ABG Oxyhemoglobin Oxyhemoglobin Sodium Potassium Chloride Carbon Dioxide BUN Creatinine Glucose POC Glucose 170 H 151 H Lactic Acid Calcium Phosphorus Magnesium AST ALT Alkaline Phosphatase C-Reactive Protein Total Protein Albumin Triglycerides Ur Specific [place] Urine Creatinine Crossmatch 06/25/21 06/25/21 06/25/21 11:29 14:24 16:48 WBC RBC Hgb 8.5 L Hct 27.5 L MCV MCH RDW Plt Count Lymph % (Auto) [place] % (Auto) Lymph # (Auto) [place] # (Auto) Seg Neutrophils % Seg Neuts % (Manual) Lymphocytes % (Manual) Monocytes % (Manual) Seg Neutrophils # Seg Neutrophils # Man Lymphocytes # (Manual) Monocytes # (Manual) PT INR APTT Fibrinogen D-Dimer ABG pH POC ABG pCO2 POC ABG pO2 ABG pO2 ABG HCO3 ABG O2 Saturation ABG Base Excess ABG Hemoglobin ABG Oxyhemoglobin Oxyhemoglobin Sodium Potassium Chloride Carbon Dioxide BUN Creatinine Glucose POC Glucose 189 H 224 H Lactic Acid Calcium Phosphorus Magnesium AST ALT Alkaline Phosphatase C-Reactive Protein Total Protein Albumin Triglycerides Ur Specific [place] Urine Creatinine Crossmatch 06/25/21 06/25/21 06/25/21 23:39 Unknown Unknown WBC 16.5 H RBC 2.90 L Hgb 8.0 L Hct 23.8 L MCV MCH RDW 22.8 H Plt Count Lymph % (Auto) [place] % (Auto) Lymph # (Auto) [place] # (Auto) Seg Neutrophils % Seg Neuts % (Manual) Lymphocytes % (Manual) Monocytes % (Manual) Seg Neutrophils # Seg Neutrophils # Man Lymphocytes # (Manual) Monocytes # (Manual) PT INR APTT Fibrinogen D-Dimer ABG pH POC ABG pCO2 POC ABG pO2 ABG pO2 ABG HCO3 ABG O2 Saturation ABG Base Excess ABG Hemoglobin ABG Oxyhemoglobin Oxyhemoglobin Sodium 149 H Potassium Chloride 115.6 H Carbon Dioxide BUN 28 H Creatinine Glucose 157 H POC Glucose 187 H Lactic Acid Calcium 8.0 L Phosphorus Magnesium AST ALT Alkaline Phosphatase C-Reactive Protein Total Protein Albumin Triglycerides Ur Specific [place] Urine Creatinine Crossmatch 06/26/21 06/26/21 06/26/21 05:22 05:29 05:29 WBC 16.2 H RBC 3.03 L Hgb 8.0 L Hct 25.1 L MCV MCH 26 L RDW 23.2 H Plt Count Lymph % (Auto) [place] % (Auto) Lymph # (Auto) [place] # (Auto) Seg Neutrophils % Seg Neuts % (Manual) Lymphocytes % (Manual) Monocytes % (Manual) Seg Neutrophils # Seg Neutrophils # Man Lymphocytes # (Manual) Monocytes # (Manual) PT INR APTT Fibrinogen D-Dimer ABG pH POC ABG pCO2 POC ABG pO2 ABG pO2 ABG HCO3 ABG O2 Saturation ABG Base Excess ABG Hemoglobin ABG Oxyhemoglobin Oxyhemoglobin Sodium 150 H Potassium Chloride 114.8 H Carbon Dioxide BUN 29 H Creatinine Glucose 229 H POC Glucose 211 H Lactic Acid Calcium 8.2 L Phosphorus Magnesium AST ALT Alkaline Phosphatase C-Reactive Protein Total Protein Albumin Triglycerides Ur Specific [place] Urine Creatinine Crossmatch 06/26/21 06/26/21 06/26/21 11:05 15:59 22:00 WBC RBC Hgb Hct MCV MCH RDW Plt Count Lymph % (Auto) [place] % (Auto) Lymph # (Auto) [place] # (Auto) Seg Neutrophils % Seg Neuts % (Manual) Lymphocytes % (Manual) Monocytes % (Manual) Seg Neutrophils # Seg Neutrophils # Man Lymphocytes # (Manual) Monocytes # (Manual) PT INR APTT Fibrinogen D-Dimer ABG pH POC ABG pCO2 POC ABG pO2 ABG pO2 ABG HCO3 ABG O2 Saturation ABG Base Excess ABG Hemoglobin ABG Oxyhemoglobin Oxyhemoglobin Sodium Potassium Chloride Carbon Dioxide BUN Creatinine Glucose POC Glucose 213 H 222 H 161 H Lactic Acid Calcium Phosphorus Magnesium AST ALT Alkaline Phosphatase C-Reactive Protein Total Protein Albumin Triglycerides Ur Specific [place] Urine Creatinine Crossmatch 06/26/21 06/27/21 06/27/21 23:24 04:15 04:15 WBC 14.3 H RBC 2.96 L Hgb 8.1 L Hct 24.6 L MCV MCH 27 L RDW 23.0 H Plt Count Lymph % (Auto) [place] % (Auto) Lymph # (Auto) [place] # (Auto) Seg Neutrophils % Seg Neuts % (Manual) Lymphocytes % (Manual) Monocytes % (Manual) Seg Neutrophils # Seg Neutrophils # Man Lymphocytes # (Manual) Monocytes # (Manual) PT INR APTT Fibrinogen D-Dimer ABG pH POC ABG pCO2 POC ABG pO2 ABG pO2 ABG HCO3 ABG O2 Saturation ABG Base Excess ABG Hemoglobin ABG Oxyhemoglobin Oxyhemoglobin Sodium 150 H Potassium Chloride 113.8 H Carbon Dioxide BUN 26 H Creatinine Glucose 246 H POC Glucose 164 H Lactic Acid Calcium 7.8 L Phosphorus Magnesium AST ALT Alkaline Phosphatase C-Reactive Protein Total Protein Albumin Triglycerides Ur Specific [place] Urine Creatinine Crossmatch 06/27/21 06/27/21 06/27/21 05:44 11:07 16:06 WBC RBC Hgb Hct MCV MCH RDW Plt Count Lymph % (Auto) [place] % (Auto) Lymph # (Auto) [place] # (Auto) Seg Neutrophils % Seg Neuts % (Manual) Lymphocytes % (Manual) Monocytes % (Manual) Seg Neutrophils # Seg Neutrophils # Man Lymphocytes # (Manual) Monocytes # (Manual) PT INR APTT Fibrinogen D-Dimer ABG pH POC ABG pCO2 POC ABG pO2 ABG pO2 ABG HCO3 ABG O2 Saturation ABG Base Excess ABG Hemoglobin ABG Oxyhemoglobin Oxyhemoglobin Sodium Potassium Chloride Carbon Dioxide BUN Creatinine Glucose POC Glucose 226 H 204 H 224 H Lactic Acid Calcium Phosphorus Magnesium AST ALT Alkaline Phosphatase C-Reactive Protein Total Protein Albumin Triglycerides Ur Specific [place] Urine Creatinine Crossmatch 06/27/21 06/28/21 06/28/21 23:49 04:00 04:00 WBC 15.4 H RBC 3.05 L Hgb 8.2 L Hct 25.0 L MCV MCH 27 L RDW 22.6 H Plt Count Lymph % (Auto) [place] % (Auto) Lymph # (Auto) [place] # (Auto) Seg Neutrophils % Seg Neuts % (Manual) Lymphocytes % (Manual) Monocytes % (Manual) Seg Neutrophils # Seg Neutrophils # Man Lymphocytes # (Manual) Monocytes # (Manual) PT INR APTT Fibrinogen D-Dimer ABG pH POC ABG pCO2 POC ABG pO2 ABG pO2 ABG HCO3 ABG O2 Saturation ABG Base Excess ABG Hemoglobin ABG Oxyhemoglobin Oxyhemoglobin Sodium 152 H Potassium 3.0 L Chloride 114.9 H Carbon Dioxide BUN 24 H Creatinine Glucose 158 H POC Glucose 195 H Lactic Acid Calcium 8.1 L Phosphorus Magnesium AST ALT Alkaline Phosphatase C-Reactive Protein Total Protein Albumin Triglycerides Ur Specific [place] Urine Creatinine Crossmatch 06/28/21 06/28/21 06/28/21 05:05 11:47 17:21 WBC RBC Hgb Hct MCV MCH RDW Plt Count Lymph % (Auto) [place] % (Auto) Lymph # (Auto) [place] # (Auto) Seg Neutrophils % Seg Neuts % (Manual) Lymphocytes % (Manual) Monocytes % (Manual) Seg Neutrophils # Seg Neutrophils # Man Lymphocytes # (Manual) Monocytes # (Manual) PT INR APTT Fibrinogen D-Dimer ABG pH POC ABG pCO2 POC ABG pO2 ABG pO2 ABG HCO3 ABG O2 Saturation ABG Base Excess ABG Hemoglobin ABG Oxyhemoglobin Oxyhemoglobin Sodium Potassium Chloride Carbon Dioxide BUN Creatinine Glucose POC Glucose 121 H 164 H 166 H Lactic Acid Calcium Phosphorus Magnesium AST ALT Alkaline Phosphatase C-Reactive Protein Total Protein Albumin Triglycerides Ur Specific [place] Urine Creatinine Crossmatch 06/28/21 06/28/21 06/29/21 18:14 21:54 00:55 WBC RBC Hgb Hct MCV MCH RDW Plt Count Lymph % (Auto) [place] % (Auto) Lymph # (Auto) [place] # (Auto) Seg Neutrophils % Seg Neuts % (Manual) Lymphocytes % (Manual) Monocytes % (Manual) Seg Neutrophils # Seg Neutrophils # Man Lymphocytes # (Manual) Monocytes # (Manual) PT INR APTT Fibrinogen D-Dimer ABG pH POC ABG pCO2 POC ABG pO2 ABG pO2 ABG HCO3 ABG O2 Saturation ABG Base Excess ABG Hemoglobin ABG Oxyhemoglobin Oxyhemoglobin Sodium Potassium Chloride Carbon Dioxide BUN Creatinine Glucose POC Glucose 150 H 148 H 176 H Lactic Acid Calcium Phosphorus Magnesium AST ALT Alkaline Phosphatase C-Reactive Protein Total Protein Albumin Triglycerides Ur Specific [place] Urine Creatinine Crossmatch 06/29/21 06/29/21 06/29/21 04:00 04:00 05:20 WBC 15.3 H RBC 3.04 L Hgb 8.0 L Hct 25.0 L MCV MCH 26 L RDW 22.3 H Plt Count Lymph % (Auto) [place] % (Auto) Lymph # (Auto) [place] # (Auto) Seg Neutrophils % Seg Neuts % (Manual) Lymphocytes % (Manual) Monocytes % (Manual) Seg Neutrophils # Seg Neutrophils # Man Lymphocytes # (Manual) Monocytes # (Manual) PT INR APTT Fibrinogen D-Dimer ABG pH POC ABG pCO2 POC ABG pO2 ABG pO2 ABG HCO3 ABG O2 Saturation ABG Base Excess ABG Hemoglobin ABG Oxyhemoglobin Oxyhemoglobin Sodium Potassium 3.1 L Chloride 108.7 H Carbon Dioxide BUN 20 H Creatinine Glucose 194 H POC Glucose 185 H Lactic Acid Calcium 8.0 L Phosphorus Magnesium AST ALT Alkaline Phosphatase C-Reactive Protein Total Protein Albumin Triglycerides Ur Specific [place] Urine Creatinine Crossmatch 06/29/21 06/29/21 06/30/21 12:18 17:20 00:49 WBC RBC Hgb Hct MCV MCH RDW Plt Count Lymph % (Auto) [place] % (Auto) Lymph # (Auto) [place] # (Auto) Seg Neutrophils % Seg Neuts % (Manual) Lymphocytes % (Manual) Monocytes % (Manual) Seg Neutrophils # Seg Neutrophils # Man Lymphocytes # (Manual) Monocytes # (Manual) PT INR APTT Fibrinogen D-Dimer ABG pH POC ABG pCO2 POC ABG pO2 ABG pO2 ABG HCO3 ABG O2 Saturation ABG Base Excess ABG Hemoglobin ABG Oxyhemoglobin Oxyhemoglobin Sodium Potassium Chloride Carbon Dioxide BUN Creatinine Glucose POC Glucose 135 H 185 H 156 H Lactic Acid Calcium Phosphorus Magnesium AST ALT Alkaline Phosphatase C-Reactive Protein Total Protein Albumin Triglycerides Ur Specific [place] Urine Creatinine Crossmatch 06/30/21 06/30/21 06/30/21 04:25 04:25 08:14 WBC 13.0 H RBC 3.19 L Hgb 8.2 L Hct 26.2 L MCV MCH 26 L RDW 22.3 H Plt Count Lymph % (Auto) [place] % (Auto) Lymph # (Auto) [place] # (Auto) Seg Neutrophils % Seg Neuts % (Manual) 81.0 H Lymphocytes % (Manual) 10.0 L Monocytes % (Manual) 8.0 H Seg Neutrophils # Seg Neutrophils # Man 10.5 H Lymphocytes # (Manual) Monocytes # (Manual) 1.0 H PT INR APTT Fibrinogen D-Dimer ABG pH POC ABG pCO2 POC ABG pO2 ABG pO2 ABG HCO3 ABG O2 Saturation ABG Base Excess ABG Hemoglobin ABG Oxyhemoglobin Oxyhemoglobin Sodium Potassium 3.0 L Chloride Carbon Dioxide BUN 20 H Creatinine Glucose 104 H POC Glucose 119 H Lactic Acid Calcium 8.3 L Phosphorus Magnesium AST ALT Alkaline Phosphatase C-Reactive Protein Total Protein Albumin Triglycerides Ur Specific [place] Urine Creatinine Crossmatch 06/30/21 06/30/21 06/30/21 11:36 16:24 22:44 WBC RBC Hgb Hct MCV MCH RDW Plt Count Lymph % (Auto) [place] % (Auto) Lymph # (Auto) [place] # (Auto) Seg Neutrophils % Seg Neuts % (Manual) Lymphocytes % (Manual) Monocytes % (Manual) Seg Neutrophils # Seg Neutrophils # Man Lymphocytes # (Manual) Monocytes # (Manual) PT INR APTT Fibrinogen D-Dimer ABG pH POC ABG pCO2 POC ABG pO2 ABG pO2 ABG HCO3 ABG O2 Saturation ABG Base Excess ABG Hemoglobin ABG Oxyhemoglobin Oxyhemoglobin Sodium Potassium Chloride Carbon Dioxide BUN Creatinine Glucose POC Glucose 154 H 208 H 174 H Lactic Acid Calcium Phosphorus Magnesium AST ALT Alkaline Phosphatase C-Reactive Protein Total Protein Albumin Triglycerides Ur Specific [place] Urine Creatinine Crossmatch 07/01/21 07/01/21 07/01/21 05:29 05:29 05:54 WBC 11.9 H RBC 3.00 L Hgb 8.1 L Hct 24.4 L MCV MCH 27 L RDW 21.7 H Plt Count Lymph % (Auto) [place] % (Auto) Lymph # (Auto) [place] # (Auto) Seg Neutrophils % Seg Neuts % (Manual) Lymphocytes % (Manual) Monocytes % (Manual) Seg Neutrophils # Seg Neutrophils # Man Lymphocytes # (Manual) Monocytes # (Manual) PT INR APTT Fibrinogen D-Dimer ABG pH POC ABG pCO2 POC ABG pO2 ABG pO2 ABG HCO3 ABG O2 Saturation ABG Base Excess ABG Hemoglobin ABG Oxyhemoglobin Oxyhemoglobin Sodium Potassium Chloride Carbon Dioxide BUN Creatinine Glucose 177 H POC Glucose 170 H Lactic Acid Calcium Phosphorus Magnesium AST ALT Alkaline Phosphatase C-Reactive Protein Total Protein Albumin Triglycerides Ur Specific [place] Urine Creatinine Crossmatch 07/01/21 07/02/21 07/02/21 10:54 05:05 10:18 WBC RBC Hgb Hct MCV MCH RDW Plt Count Lymph % (Auto) [place] % (Auto) Lymph # (Auto) [place] # (Auto) Seg Neutrophils % Seg Neuts % (Manual) Lymphocytes % (Manual) Monocytes % (Manual) Seg Neutrophils # Seg Neutrophils # Man Lymphocytes # (Manual) Monocytes # (Manual) PT INR APTT Fibrinogen D-Dimer ABG pH 7.488 H POC ABG pCO2 POC ABG pO2 ABG pO2 97.2 H ABG HCO3 27.1 H ABG O2 Saturation ABG Base Excess 3.5 H ABG Hemoglobin 7.9 L ABG Oxyhemoglobin Oxyhemoglobin Sodium Potassium Chloride Carbon Dioxide BUN Creatinine Glucose POC Glucose 184 H 182 H Lactic Acid Calcium Phosphorus Magnesium AST ALT Alkaline Phosphatase C-Reactive Protein Total Protein Albumin Triglycerides Ur Specific [place] Urine Creatinine Crossmatch 07/02/21 07/02/21 07/02/21 12:14 16:18 22:27 WBC RBC Hgb Hct MCV MCH RDW Plt Count Lymph % (Auto) [place] % (Auto) Lymph # (Auto) [place] # (Auto) Seg Neutrophils % Seg Neuts % (Manual) Lymphocytes % (Manual) Monocytes % (Manual) Seg Neutrophils # Seg Neutrophils # Man Lymphocytes # (Manual) Monocytes # (Manual) PT INR APTT Fibrinogen D-Dimer ABG pH 7.199 L* POC ABG pCO2 POC ABG pO2 ABG pO2 104.5 H ABG HCO3 30.3 H ABG O2 Saturation ABG Base Excess ABG Hemoglobin 9.8 L ABG Oxyhemoglobin Oxyhemoglobin 94.6 L Sodium Potassium Chloride Carbon Dioxide BUN Creatinine Glucose POC Glucose 184 H 194 H Lactic Acid Calcium Phosphorus Magnesium AST ALT Alkaline Phosphatase C-Reactive Protein Total Protein Albumin Triglycerides Ur Specific [place] Urine Creatinine Crossmatch 07/03/21 07/03/21 07/03/21 09:47 10:44 11:24 WBC RBC 3.01 L Hgb 8.3 L Hct 24.3 L MCV MCH RDW 21.7 H Plt Count Lymph % (Auto) 8.4 L [place] % (Auto) Lymph # (Auto) 0.8 L [place] # (Auto) Seg Neutrophils % 80.6 H Seg Neuts % (Manual) Lymphocytes % (Manual) Monocytes % (Manual) Seg Neutrophils # Seg Neutrophils # Man Lymphocytes # (Manual) Monocytes # (Manual) PT INR APTT Fibrinogen D-Dimer ABG pH POC ABG pCO2 POC ABG pO2 ABG pO2 ABG HCO3 ABG O2 Saturation ABG Base Excess ABG Hemoglobin ABG Oxyhemoglobin Oxyhemoglobin Sodium Potassium 3.0 L Chloride Carbon Dioxide BUN Creatinine Glucose 200 H POC Glucose 180 H Lactic Acid Calcium 8.3 L Phosphorus Magnesium AST ALT Alkaline Phosphatase C-Reactive Protein Total Protein Albumin Triglycerides Ur Specific [place] Urine Creatinine Crossmatch 07/03/21 07/03/21 07/03/21 16:34 22:14 22:15 WBC RBC Hgb Hct MCV MCH RDW Plt Count Lymph % (Auto) [place] % (Auto) Lymph # (Auto) [place] # (Auto) Seg Neutrophils % Seg Neuts % (Manual) Lymphocytes % (Manual) Monocytes % (Manual) Seg Neutrophils # Seg Neutrophils # Man Lymphocytes # (Manual) Monocytes # (Manual) PT INR APTT Fibrinogen D-Dimer ABG pH POC ABG pCO2 POC ABG pO2 ABG pO2 ABG HCO3 ABG O2 Saturation ABG Base Excess ABG Hemoglobin ABG Oxyhemoglobin Oxyhemoglobin Sodium Potassium Chloride Carbon Dioxide BUN Creatinine Glucose POC Glucose 165 H 174 H 180 H Lactic Acid Calcium Phosphorus Magnesium AST ALT Alkaline Phosphatase C-Reactive Protein Total Protein Albumin Triglycerides Ur Specific [place] Urine Creatinine Crossmatch 07/04/21 07/04/21 07/04/21 00:28 01:44 05:07 WBC RBC Hgb Hct MCV MCH RDW Plt Count Lymph % (Auto) [place] % (Auto) Lymph # (Auto) [place] # (Auto) Seg Neutrophils % Seg Neuts % (Manual) Lymphocytes % (Manual) Monocytes % (Manual) Seg Neutrophils # Seg Neutrophils # Man Lymphocytes # (Manual) Monocytes # (Manual) PT INR APTT Fibrinogen D-Dimer ABG pH POC ABG pCO2 POC ABG pO2 ABG pO2 107.7 H ABG HCO3 26.7 H ABG O2 Saturation ABG Base Excess ABG Hemoglobin 7.5 L ABG Oxyhemoglobin Oxyhemoglobin Sodium Potassium Chloride Carbon Dioxide BUN Creatinine Glucose POC Glucose 246 H 179 H Lactic Acid Calcium Phosphorus Magnesium AST ALT Alkaline Phosphatase C-Reactive Protein Total Protein Albumin Triglycerides Ur Specific [place] Urine Creatinine Crossmatch 07/04/21 07/04/21 07/04/21 05:13 05:13 10:52 WBC RBC 3.12 L Hgb 8.5 L Hct 25.2 L MCV MCH 27 L RDW 21.3 H Plt Count Lymph % (Auto) 6.1 L [place] % (Auto) Lymph # (Auto) 0.6 L [place] # (Auto) Seg Neutrophils % 85.0 H Seg Neuts % (Manual) Lymphocytes % (Manual) Monocytes % (Manual) Seg Neutrophils # 8.0 H Seg Neutrophils # Man Lymphocytes # (Manual) Monocytes # (Manual) PT INR APTT Fibrinogen D-Dimer ABG pH POC ABG pCO2 POC ABG pO2 ABG pO2 ABG HCO3 ABG O2 Saturation ABG Base Excess ABG Hemoglobin ABG Oxyhemoglobin Oxyhemoglobin Sodium Potassium 3.4 L Chloride Carbon Dioxide BUN Creatinine Glucose 205 H POC Glucose 146 H Lactic Acid Calcium Phosphorus Magnesium AST ALT Alkaline Phosphatase C-Reactive Protein Total Protein Albumin Triglycerides Ur Specific [place] Urine Creatinine Crossmatch 07/04/21 07/04/21 07/05/21 16:22 23:52 04:38 WBC RBC Hgb Hct MCV MCH RDW Plt Count Lymph % (Auto) [place] % (Auto) Lymph # (Auto) [place] # (Auto) Seg Neutrophils % Seg Neuts % (Manual) Lymphocytes % (Manual) Monocytes % (Manual) Seg Neutrophils # Seg Neutrophils # Man Lymphocytes # (Manual) Monocytes # (Manual) PT INR APTT Fibrinogen D-Dimer ABG pH POC ABG pCO2 POC ABG pO2 ABG pO2 ABG HCO3 ABG O2 Saturation ABG Base Excess ABG Hemoglobin ABG Oxyhemoglobin Oxyhemoglobin Sodium Potassium 3.0 L Chloride Carbon Dioxide BUN 18 H Creatinine Glucose 174 H POC Glucose 154 H 193 H Lactic Acid Calcium Phosphorus 2.20 L Magnesium AST ALT Alkaline Phosphatase C-Reactive Protein Total Protein Albumin Triglycerides Ur Specific [place] Urine Creatinine Crossmatch 07/05/21 07/05/21 07/05/21 04:38 05:15 12:35 WBC RBC 2.95 L Hgb 7.8 L Hct 23.9 L MCV MCH 27 L RDW 21.0 H Plt Count Lymph % (Auto) [place] % (Auto) Lymph # (Auto) [place] # (Auto) Seg Neutrophils % Seg Neuts % (Manual) Lymphocytes % (Manual) Monocytes % (Manual) Seg Neutrophils # Seg Neutrophils # Man Lymphocytes # (Manual) Monocytes # (Manual) PT INR APTT Fibrinogen D-Dimer ABG pH POC ABG pCO2 POC ABG pO2 ABG pO2 ABG HCO3 ABG O2 Saturation ABG Base Excess ABG Hemoglobin ABG Oxyhemoglobin Oxyhemoglobin Sodium Potassium Chloride Carbon Dioxide BUN Creatinine Glucose POC Glucose 163 H 121 H Lactic Acid Calcium Phosphorus Magnesium AST ALT Alkaline Phosphatase C-Reactive Protein Total Protein Albumin Triglycerides Ur Specific [place] Urine Creatinine Crossmatch 07/05/21 07/05/21 07/05/21 18:27 21:05 23:11 WBC RBC Hgb Hct MCV MCH RDW Plt Count Lymph % (Auto) [place] % (Auto) Lymph # (Auto) [place] # (Auto) Seg Neutrophils % Seg Neuts % (Manual) Lymphocytes % (Manual) Monocytes % (Manual) Seg Neutrophils # Seg Neutrophils # Man Lymphocytes # (Manual) Monocytes # (Manual) PT INR APTT Fibrinogen D-Dimer ABG pH POC ABG pCO2 POC ABG pO2 ABG pO2 ABG HCO3 ABG O2 Saturation ABG Base Excess ABG Hemoglobin ABG Oxyhemoglobin Oxyhemoglobin Sodium Potassium Chloride Carbon Dioxide BUN Creatinine Glucose POC Glucose 183 H 170 H 184 H Lactic Acid Calcium Phosphorus Magnesium AST ALT Alkaline Phosphatase C-Reactive Protein Total Protein Albumin Triglycerides Ur Specific [place] Urine Creatinine Crossmatch 07/06/21 07/06/21 07/06/21 04:39 05:13 12:12 WBC RBC Hgb Hct MCV MCH RDW Plt Count Lymph % (Auto) [place] % (Auto) Lymph # (Auto) [place] # (Auto) Seg Neutrophils % Seg Neuts % (Manual) Lymphocytes % (Manual) Monocytes % (Manual) Seg Neutrophils # Seg Neutrophils # Man Lymphocytes # (Manual) Monocytes # (Manual) PT INR APTT Fibrinogen D-Dimer ABG pH POC ABG pCO2 POC ABG pO2 ABG pO2 ABG HCO3 ABG O2 Saturation ABG Base Excess ABG Hemoglobin ABG Oxyhemoglobin Oxyhemoglobin Sodium Potassium 3.4 L Chloride Carbon Dioxide BUN Creatinine Glucose 180 H POC Glucose 183 H 153 H Lactic Acid Calcium Phosphorus Magnesium AST ALT Alkaline Phosphatase C-Reactive Protein Total Protein Albumin Triglycerides Ur Specific [place] Urine Creatinine Crossmatch 07/06/21 07/06/21 07/07/21 17:30 21:44 00:22 WBC RBC Hgb Hct MCV MCH RDW Plt Count Lymph % (Auto) [place] % (Auto) Lymph # (Auto) [place] # (Auto) Seg Neutrophils % Seg Neuts % (Manual) Lymphocytes % (Manual) Monocytes % (Manual) Seg Neutrophils # Seg Neutrophils # Man Lymphocytes # (Manual) Monocytes # (Manual) PT INR APTT Fibrinogen D-Dimer ABG pH POC ABG pCO2 POC ABG pO2 ABG pO2 ABG HCO3 ABG O2 Saturation ABG Base Excess ABG Hemoglobin ABG Oxyhemoglobin Oxyhemoglobin Sodium Potassium Chloride Carbon Dioxide BUN Creatinine Glucose POC Glucose 166 H 155 H 188 H Lactic Acid Calcium Phosphorus Magnesium AST ALT Alkaline Phosphatase C-Reactive Protein Total Protein Albumin Triglycerides Ur Specific [place] Urine Creatinine Crossmatch 07/07/21 07/07/21 07/07/21 04:10 05:48 07:39 WBC RBC Hgb Hct MCV MCH RDW Plt Count Lymph % (Auto) [place] % (Auto) Lymph # (Auto) [place] # (Auto) Seg Neutrophils % Seg Neuts % (Manual) Lymphocytes % (Manual) Monocytes % (Manual) Seg Neutrophils # Seg Neutrophils # Man Lymphocytes # (Manual) Monocytes # (Manual) PT INR APTT Fibrinogen D-Dimer ABG pH POC ABG pCO2 POC ABG pO2 ABG pO2 ABG HCO3 ABG O2 Saturation ABG Base Excess ABG Hemoglobin ABG Oxyhemoglobin Oxyhemoglobin Sodium Potassium 3.1 L Chloride Carbon Dioxide BUN Creatinine Glucose 138 H POC Glucose 141 H 147 H Lactic Acid Calcium Phosphorus 2.40 L Magnesium AST ALT Alkaline Phosphatase C-Reactive Protein Total Protein Albumin Triglycerides Ur Specific [place] Urine Creatinine Crossmatch 07/07/21 07/07/21 07/07/21 11:17 16:06 23:58 WBC RBC Hgb Hct MCV MCH RDW Plt Count Lymph % (Auto) [place] % (Auto) Lymph # (Auto) [place] # (Auto) Seg Neutrophils % Seg Neuts % (Manual) Lymphocytes % (Manual) Monocytes % (Manual) Seg Neutrophils # Seg Neutrophils # Man Lymphocytes # (Manual) Monocytes # (Manual) PT INR APTT Fibrinogen D-Dimer ABG pH POC ABG pCO2 POC ABG pO2 ABG pO2 ABG HCO3 ABG O2 Saturation ABG Base Excess ABG Hemoglobin ABG Oxyhemoglobin Oxyhemoglobin Sodium Potassium Chloride Carbon Dioxide BUN Creatinine Glucose POC Glucose 161 H 173 H 198 H Lactic Acid Calcium Phosphorus Magnesium AST ALT Alkaline Phosphatase C-Reactive Protein Total Protein Albumin Triglycerides Ur Specific [place] Urine Creatinine Crossmatch 07/08/21 07/08/21 07/08/21 04:20 04:20 06:12 WBC RBC 3.16 L Hgb 8.3 L Hct 25.1 L MCV MCH 26 L RDW 21.0 H Plt Count Lymph % (Auto) [place] % (Auto) Lymph # (Auto) [place] # (Auto) Seg Neutrophils % Seg Neuts % (Manual) Lymphocytes % (Manual) Monocytes % (Manual) Seg Neutrophils # Seg Neutrophils # Man Lymphocytes # (Manual) Monocytes # (Manual) PT INR APTT Fibrinogen D-Dimer ABG pH POC ABG pCO2 POC ABG pO2 ABG pO2 ABG HCO3 ABG O2 Saturation ABG Base Excess ABG Hemoglobin ABG Oxyhemoglobin Oxyhemoglobin Sodium Potassium Chloride Carbon Dioxide BUN Creatinine Glucose 183 H POC Glucose 189 H Lactic Acid Calcium Phosphorus Magnesium AST ALT Alkaline Phosphatase C-Reactive Protein Total Protein Albumin Triglycerides Ur Specific [place] Urine Creatinine Crossmatch 07/08/21 07/08/21 07/08/21 11:33 18:04 21:42 WBC RBC Hgb Hct MCV MCH RDW Plt Count Lymph % (Auto) [place] % (Auto) Lymph # (Auto) [place] # (Auto) Seg Neutrophils % Seg Neuts % (Manual) Lymphocytes % (Manual) Monocytes % (Manual) Seg Neutrophils # Seg Neutrophils # Man Lymphocytes # (Manual) Monocytes # (Manual) PT INR APTT Fibrinogen D-Dimer ABG pH POC ABG pCO2 POC ABG pO2 ABG pO2 ABG HCO3 ABG O2 Saturation ABG Base Excess ABG Hemoglobin ABG Oxyhemoglobin Oxyhemoglobin Sodium Potassium Chloride Carbon Dioxide BUN Creatinine Glucose POC Glucose 161 H 128 H 160 H Lactic Acid Calcium Phosphorus Magnesium AST ALT Alkaline Phosphatase C-Reactive Protein Total Protein Albumin Triglycerides Ur Specific [place] Urine Creatinine Crossmatch 07/09/21 07/09/21 07/09/21 06:03 06:10 06:10 WBC RBC 2.96 L Hgb 7.8 L Hct 23.5 L MCV MCH 27 L RDW 20.9 H Plt Count Lymph % (Auto) [place] % (Auto) Lymph # (Auto) [place] # (Auto) Seg Neutrophils % Seg Neuts % (Manual) Lymphocytes % (Manual) Monocytes % (Manual) Seg Neutrophils # Seg Neutrophils # Man Lymphocytes # (Manual) Monocytes # (Manual) PT INR APTT Fibrinogen D-Dimer ABG pH POC ABG pCO2 POC ABG pO2 ABG pO2 ABG HCO3 ABG O2 Saturation ABG Base Excess ABG Hemoglobin ABG Oxyhemoglobin Oxyhemoglobin Sodium Potassium Chloride Carbon Dioxide BUN Creatinine Glucose 168 H POC Glucose 174 H Lactic Acid Calcium 8.2 L Phosphorus Magnesium AST ALT Alkaline Phosphatase C-Reactive Protein Total Protein Albumin Triglycerides Ur Specific [place] Urine Creatinine Crossmatch 07/09/21 07/09/21 07/09/21 11:45 18:45 21:33 WBC RBC Hgb Hct MCV MCH RDW Plt Count Lymph % (Auto) [place] % (Auto) Lymph # (Auto) [place] # (Auto) Seg Neutrophils % Seg Neuts % (Manual) Lymphocytes % (Manual) Monocytes % (Manual) Seg Neutrophils # Seg Neutrophils # Man Lymphocytes # (Manual) Monocytes # (Manual) PT INR APTT Fibrinogen D-Dimer ABG pH POC ABG pCO2 POC ABG pO2 ABG pO2 ABG HCO3 ABG O2 Saturation ABG Base Excess ABG Hemoglobin ABG Oxyhemoglobin Oxyhemoglobin Sodium Potassium Chloride Carbon Dioxide BUN Creatinine Glucose POC Glucose 148 H 187 H 156 H Lactic Acid Calcium Phosphorus Magnesium AST ALT Alkaline Phosphatase C-Reactive Protein Total Protein Albumin Triglycerides Ur Specific [place] Urine Creatinine Crossmatch 07/10/21 07/10/21 00:01 05:24 WBC RBC Hgb Hct MCV MCH RDW Plt Count Lymph % (Auto) [place] % (Auto) Lymph # (Auto) [place] # (Auto) Seg Neutrophils % Seg Neuts % (Manual) Lymphocytes % (Manual) Monocytes % (Manual) Seg Neutrophils # Seg Neutrophils # Man Lymphocytes # (Manual) Monocytes # (Manual) PT INR APTT Fibrinogen D-Dimer ABG pH POC ABG pCO2 POC ABG pO2 ABG pO2 ABG HCO3 ABG O2 Saturation ABG Base Excess ABG Hemoglobin ABG Oxyhemoglobin Oxyhemoglobin Sodium Potassium Chloride Carbon Dioxide BUN Creatinine Glucose POC Glucose 191 H 203 H Lactic Acid Calcium Phosphorus Magnesium AST ALT Alkaline Phosphatase C-Reactive Protein Total Protein Albumin Triglycerides Ur Specific [place] Urine Creatinine Crossmatch
[2021-07-10] MEDS: HYDROmorphone 1 MG/1 ML INJ IV PRN ×2 (12:39→21:08)
--- NOTE | 2021-07-10 12:44 | Progress Note ---
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 07/10/21: Continue current care. Trach changed out. Speech following. Awaiting placement. 07/09/21: Transfer to IMCU. PT/OT. Speech to see again now with smaller caliber trach. Placement. 07/08/21: Continue ICU. Once trach downsized may consider transition to step down if ICU bed is needed. Hopeful placement soon. PT/OT. 07/05/21: Continue ICU/IMCU status. Patient is stable for speech as well as PT/OT. Please reconsult them. [facility] has been denied for LTACH so will attempt to get patient into alf facility. Will speak with surgery about possibly downsizing trach to 8. Speech has no equipment to fit 10. Do not feel comfortable doing it myself or asking RT to change out to smaller trach. 07/04/21: Will keep in ICU/IMCU for now. Treat pain in back with [place] and discontinue Tylenol. Follow up with CM on placement. 07/03/21: Continue current level of care. CM working on placement. 07/02/21: ABG now. Patient did have low grade temp earlier today and still has a white count despite being off steroids. It is trending down. Reviewed ID note and they did mention of persistent consider ct of neck. May need to do this. If done, please scan head as well. Will continue to follow. Spoke with RT about obtaining ABG. 07/01/21: Continue T-piece. Follow up speech recs. Follow up electrolytes. PT/OT. Stable for transfer when bed available 06/30/21: Aggressive replacement of electrolytes. Will repeat chemistry tonight around 8. please call for orders as we would like to keep her K at 4 and Mag at 2. Chemistry in the am. Stable for transfer to telemetry floor. 06/29/21: Speech did see but patient had decreased voice quality and increased wob so aborted. Will ask them to assess again on Thursday. Chest tube out and ordered follow up CXR. Stable for transfer but ok with continuing monitoring in ICU. If bed needed could go to step down. 06/28/21: monitor drainage in ICU for 24 more hours. Can likely come out tomorrow. Continue in ICU for now. Once chest tube out, no objection to transfer. 06/27/21: Will place chest tube to water seal. Instructed staff if any change in respiratory status, place back on suction and obtain CXR. Otherwise will leave off. Continue T-piece as tolerated. Rehab/half-way/LTACH appropriate. STable for transfer if and when bed becomes available. 06/26/21: T-piece today. If off the vent, agree with surgery and removal of chest tube as subq emphysema is improving as well. PT has seen suggested LTACH, however if we are able to wean she may need half-way/rehab. Prognosis continues to improve. 06/25/21: Continue PSV as tolerated. Hopeful T-piece in the next 24-48 hours. Will drop steroids down further on . Can switch to daily and even change to oral. PT/OT consult, and follow up recs. May need LTACH vs rehab vs both. Continue to follow. 06/24/21: Daily PSV trials. Maybe ready for T-piece sson. Continue to wean steroids to off. IMS changed to 40q12 which is fine. Continue chest tube until off vent. Still on list for [facility] but will discuss with CM about checking into LTACH as patient will need rehab. PT/OT consult. 06/21/21: Continue current level of sedation. Chest tube does not have air leak but there is clear evidence of a PTX on right. Stripped tube at bedside and will repeat CXR in the morning. Hold on weaning sedation for now and hold on PSV trials. May need second chest tube vs vats if PTX worsens or does not resolve. Patient still on list for [facility], hopeful they will have a bed soon. Drop steroids to 40q8 starting Thursday. Monitor renal function, likely will improve. Needs more free water. Prognosis still remains guarded. 06/20/21: Restart some sedation. At least pain and maybe diprovan. Would like to wake patient up at some point and attempt some PSV trials. Labs are off this am. Large bump in white count but no fever, also no diff drawn. Could be error vs steroid related but this is in just 24 hours. Will repeat tomorrow. If spikes a temp neves culture as well. Small bump in Cr but still in normal range. Will watch. Now that peg in place, tube feeds and free water flushes. Still on list for [facility]. Patient has been steroids greater than 7 days so will have to wean. Can drop to 60q8 starting tomorrow. Prognosis still remains guarded. 06/19/21: surgery to attempt trach and peg today. Still will ask to keep on transfer list for [facility] as her other issues still need to be addressed. If able to place peg, can stop clinimix, give free water and start tube feeds. Prognosis remains guarded. pH better with drop in tidal volume. 06/18/21: [facility] has agreed to accept but no ICU beds available at this time. Spoke with Dr. Vasquez yesterday and Dr. Patricia spoke with ENT there. Spoke with RT this am and patient did have a leak when cuff let down and her tidal volumes dropped to below 100. Patient remains on abx and steriods. Will consider lightening sedation tomorrow and seeing how patient does if cuff leak persists. Dropped tidal volumes to 450. Continue PPN for now. 06/17/21: spoke with surgery and they feel transfer is reasonable. I have reached out to [facility] and [facility] has spoken with someone from [facility]. Await to hear back from them. Continue supportive measures and adequate sedation for pain control. No PSV trials as of yet. Blood sugar control, increase lantus. Most likely secondary to steroids. Continue abx therapy. Guarded prognosis. 06/16/21: Renal function improved with fluids. IMS to give more fluids (LR) today which I agree with. FeNa is =0.7. Should be fluid responsive. Continue clinimix. Needs long acting insulin. Agree with lantus. Asked nursing to increase sedation now that we know that patient's mental status is stable. Picc today. Air leak test vs Neck CT on tomorrow. 06/15/21: Hopeful with worsening renal function ( likely from code on yesterday) that sedatives are just lingering from that. Still making good urine but output has fallen off. Will send urine sodium and urine cr to check Fena. Most likely this is prerenal. ordered renal ultrasound as well. Continue abx and steroids. Will start clinimix today. This should help with the free water piece. Will give another liter bolus of LR right now. Keep sedation off for now. Guarded prognosis. 06/14/21: Will discuss with surgery future plans. They have ordered steroids to help with inflammation and abx continue. All others appears stable and no acute evidence of bleeding at this time. Follow up surgery recs if any new ones. Guarded prognosis. 06/13/21: Patient to back to OR today. BLood transfusion. Will send DIC panel and may need to given cryo if over 6 units of PRBC's given. Patient will likely need trach and peg as we need to address nutrition. Chest tube placed, large bore now. Patient now with right sided effusion. Hemothorax???. Will continue to monitor output. Needs picc line as femoral should come out soon. Continue pressors. Continue sedation for pain control and comfort. Guarded prognosis. Surgery comfortable with neck and current situation so they have not request transfer. 1. Placed right femoral central line. pressors can run through this. 2. Repeat chemistry stat given bicarb of 8 and blood sugar of greater than 600. Ordering FSBS now. Earlier bicarb was 25. If accurate will need bicarb drip and vasopressin but not sure as pH on blood gas was normal done around the same time. 3. Coagulopathy is improving. INR down to 4.55 and PTT and pT improving. Will continue to give FFP. Ordered more vitamin K. H/H is stable but patient is oozing from neck and mouth. 4. Vasopressor for blood pressure. Need to keep map 65 and greater 5. Lujan is needed for accurate I/O 6. Surgery called by IMS about current CT situation. They state they will reassess in the am. I have reviewed the images myself. If I can position the patient safely without compromising the airway after adequate sedation, may consider placing chest tube now as INR is better and FFP is hanging. Patient is morbidly obese so shits could move the ET tube so if not safe, will wait until surgery comes in the morning. 7. Would not attempt to pass OG or NG tube given current situation in neck 8. Will discuss with surgery tomorrow but I feel this patient should be transferred to a tertiary care facility with ENT as we do not have that service here. CCT 31 minutes. Subjective Date of service: 07/10/21 Interval history: No acute events. Objective Vital Signs - 12hr 07/10/21 07/10/21 07/10/21 01:00 01:31 02:00 Temperature Pulse Rate 94 H 100 H 98 H Pulse Rate [ From Monitor] Respiratory 22 24 30 H Rate Blood Pressure 133/76 133/76 142/74 O2 Sat by Pulse 92 95 92 Oximetry O2 Sat by Pulse Oximetry [ Assessment] 07/10/21 07/10/21 07/10/21 02:30 03:00 03:30 Temperature Pulse Rate 95 H 91 H 86 Pulse Rate [ From Monitor] Respiratory 14 19 25 H Rate Blood Pressure 133/76 142/81 142/81 O2 Sat by Pulse 91 97 96 Oximetry O2 Sat by Pulse Oximetry [ Assessment] 07/10/21 07/10/21 07/10/21 03:57 04:00 04:30 Temperature 98.4 F Pulse Rate 93 H 96 H Pulse Rate [ From Monitor] Respiratory 23 20 Rate Blood Pressure 136/76 136/76 O2 Sat by Pulse 99 93 92 Oximetry O2 Sat by Pulse Oximetry [ Assessment] 07/10/21 07/10/21 07/10/21 05:00 05:30 06:00 Temperature Pulse Rate 91 H 95 H 96 H Pulse Rate [ From Monitor] Respiratory 24 26 H 28 H Rate Blood Pressure 153/84 153/84 159/80 O2 Sat by Pulse 95 95 94 Oximetry O2 Sat by Pulse Oximetry [ Assessment] 07/10/21 07/10/21 07/10/21 06:30 07:00 07:23 Temperature 99.7 F H Pulse Rate 101 H 107 H Pulse Rate [ From Monitor] Respiratory 24 29 H Rate Blood Pressure 159/80 162/93 O2 Sat by Pulse 95 83 L Oximetry O2 Sat by Pulse Oximetry [ Assessment] 07/10/21 07/10/21 07/10/21 07:30 08:00 08:30 Temperature Pulse Rate 100 H 96 H 98 H Pulse Rate [ 96 H From Monitor] Respiratory 31 H 25 H 26 H Rate Blood Pressure 162/93 163/86 163/86 O2 Sat by Pulse 96 100 95 Oximetry O2 Sat by Pulse Oximetry [ Assessment] 07/10/21 07/10/21 07/10/21 08:40 08:50 09:00 Temperature Pulse Rate 99 H Pulse Rate [ From Monitor] Respiratory 19 Rate Blood Pressure 165/86 O2 Sat by Pulse 98 94 Oximetry O2 Sat by Pulse 98 Oximetry [ Assessment] 07/10/21 07/10/21 07/10/21 09:16 09:30 10:00 Temperature Pulse Rate 100 H 98 H 99 H Pulse Rate [ From Monitor] Respiratory 29 H 30 H Rate Blood Pressure 163/86 165/86 173/87 O2 Sat by Pulse 96 86 Oximetry O2 Sat by Pulse Oximetry [ Assessment] 07/10/21 07/10/21 10:27 10:30 Temperature Pulse Rate 98 H 95 H Pulse Rate [ From Monitor] Respiratory 19 Rate Blood Pressure 173/87 173/87 O2 Sat by Pulse 94 Oximetry O2 Sat by Pulse Oximetry [ Assessment] Constitutional: alert, other (on vent trach in place) Eyes: non-icteric ENT: oropharynx moist Neck: other (trach in place) Ascultation: Bilateral: clear Percussion: Bilateral: not dull Cardiovascular: regular rate and rhythm Gastrointestinal: normoactive bowel sounds Integumentary: normal Extremities: no edema, other (subq emphysema) Neurologic: normal mental status CBC and BMP: 07/11/21 04:04 07/11/21 04:04 ABG, PT/INR, D-dimer: ABG ABG pH 7.448 pH Units (7.350-7.450) 07/04/21 01:44 POC ABG pCO2 25.6 mmHg (32.0-48.0) L 06/13/21 04:31 ABG pCO2 39.5 mm Hg 07/04/21 01:44 POC ABG pO2 138.8 mmHg (83-108) H 06/13/21 04:31 ABG pO2 107.7 mm Hg (80.0-90.0) H 07/04/21 01:44 POC ABG HCO3 21.4 06/13/21 04:31 ABG O2 Saturation 98.0 % (95.0-99.0) 07/04/21 01:44 PT/INR, D-dimer PT 18.3 Sec. (12.2-14.9) H 06/20/21 04:33 INR 1.37 (0.87-1.13) H 06/20/21 04:33 D-Dimer 1244.63 ng/mlDDU (0-234) H 06/13/21 Unknown Abnormal lab findings: Abnormal Labs 06/11/21 06/11/21 06/11/21 15:23 15:23 19:20 WBC 12.0 H RBC Hgb Hct MCV 72 L MCH 21 L RDW 17.5 H Plt Count Lymph % (Auto) 12.9 L Randall % (Auto) 8.6 H Lymph # (Auto) Randall # (Auto) 1.0 H Seg Neutrophils % 77.4 H Seg Neuts % (Manual) Lymphocytes % (Manual) Monocytes % (Manual) Seg Neutrophils # 9.3 H Seg Neutrophils # Man Lymphocytes # (Manual) Monocytes # (Manual) PT INR APTT Fibrinogen D-Dimer ABG pH POC ABG pCO2 POC ABG pO2 ABG pO2 ABG HCO3 ABG O2 Saturation ABG Base Excess ABG Hemoglobin ABG Oxyhemoglobin Oxyhemoglobin Sodium Potassium Chloride Carbon Dioxide BUN Creatinine Glucose 144 H POC Glucose Lactic Acid Calcium Phosphorus Magnesium AST ALT Alkaline Phosphatase C-Reactive Protein Total Protein Albumin Triglycerides Ur Specific [place] Urine Creatinine Crossmatch See Detail 06/11/21 06/11/21 06/11/21 19:29 19:29 23:21 WBC 15.8 H RBC Hgb 9.4 L Hct MCV 72 L MCH 22 L RDW 17.4 H Plt Count Lymph % (Auto) 9.2 L Randall % (Auto) Lymph # (Auto) Randall # (Auto) Seg Neutrophils % 89.0 H Seg Neuts % (Manual) Lymphocytes % (Manual) Monocytes % (Manual) Seg Neutrophils # 14.0 H Seg Neutrophils # Man Lymphocytes # (Manual) Monocytes # (Manual) PT 72.9 H INR 8.18 H* APTT 71.7 H* Fibrinogen D-Dimer ABG pH POC ABG pCO2 POC ABG pO2 ABG pO2 ABG HCO3 ABG O2 Saturation ABG Base Excess ABG Hemoglobin ABG Oxyhemoglobin Oxyhemoglobin Sodium 149 H D Potassium Chloride 124.3 H Carbon Dioxide 8 L* D BUN Creatinine 0.3 L Glucose 628 H* POC Glucose Lactic Acid Calcium 2.4 L* D Phosphorus Magnesium AST ALT < 5 L Alkaline Phosphatase 19 L C-Reactive Protein Total Protein 1.6 L D Albumin 0.8 L Triglycerides Ur Specific [place] Urine Creatinine Crossmatch 06/11/21 06/11/21 06/11/21 23:21 23:22 23:42 WBC RBC Hgb Hct MCV MCH 27 L RDW 22.2 H Plt Count 131 L Lymph % (Auto) Randall % (Auto) Lymph # (Auto) Randall # (Auto) Seg Neutrophils % Seg Neuts % (Manual) Lymphocytes % (Manual) Monocytes % (Manual) Seg Neutrophils # Seg Neutrophils # Man Lymphocytes # (Manual) Monocytes # (Manual) PT 46.3 H INR 4.55 H APTT 54.8 H Fibrinogen D-Dimer ABG pH POC ABG pCO2 POC ABG pO2 325.9 H ABG pO2 ABG HCO3 ABG O2 Saturation ABG Base Excess ABG Hemoglobin 8.0 L ABG Oxyhemoglobin 99.0 H Oxyhemoglobin Sodium Potassium Chloride Carbon Dioxide BUN Creatinine Glucose POC Glucose Lactic Acid Calcium Phosphorus Magnesium AST ALT Alkaline Phosphatase C-Reactive Protein Total Protein Albumin Triglycerides Ur Specific [place] Urine Creatinine Crossmatch 06/12/21 06/12/21 06/12/21 01:45 01:45 01:45 WBC 21.6 H RBC 3.04 L Hgb 6.7 L D Hct 22.4 L D MCV 74 L MCH 22 L RDW 18.9 H Plt Count Lymph % (Auto) Randall % (Auto) Lymph # (Auto) Randall # (Auto) Seg Neutrophils % Seg Neuts % (Manual) 76.0 H Lymphocytes % (Manual) 2.0 L Monocytes % (Manual) 8.0 H Seg Neutrophils # Seg Neutrophils # Man 16.4 H Lymphocytes # (Manual) 0.4 L Monocytes # (Manual) 1.7 H PT 25.4 H INR 2.10 H APTT Fibrinogen D-Dimer ABG pH POC ABG pCO2 POC ABG pO2 ABG pO2 ABG HCO3 ABG O2 Saturation ABG Base Excess ABG Hemoglobin ABG Oxyhemoglobin Oxyhemoglobin Sodium Potassium 5.6 H D Chloride Carbon Dioxide 20 L D BUN Creatinine Glucose 368 H POC Glucose Lactic Acid Calcium 7.1 L D Phosphorus Magnesium AST ALT Alkaline Phosphatase C-Reactive Protein Total Protein 5.3 L D Albumin 3.1 L Triglycerides Ur Specific [place] Urine Creatinine Crossmatch 06/12/21 06/12/21 06/12/21 02:05 04:41 11:05 WBC 14.6 H RBC 3.52 L Hgb 8.5 L Hct 27.7 L MCV MCH 24 L RDW 20.9 H Plt Count Lymph % (Auto) Randall % (Auto) Lymph # (Auto) Randall # (Auto) Seg Neutrophils % Seg Neuts % (Manual) Lymphocytes % (Manual) Monocytes % (Manual) Seg Neutrophils # Seg Neutrophils # Man Lymphocytes # (Manual) Monocytes # (Manual) PT INR APTT Fibrinogen D-Dimer ABG pH POC ABG pCO2 POC ABG pO2 224.6 H ABG pO2 ABG HCO3 ABG O2 Saturation ABG Base Excess ABG Hemoglobin 7.3 L ABG Oxyhemoglobin 98.7 H Oxyhemoglobin Sodium Potassium Chloride Carbon Dioxide BUN Creatinine Glucose POC Glucose 308 H Lactic Acid Calcium Phosphorus Magnesium AST ALT Alkaline Phosphatase C-Reactive Protein Total Protein Albumin Triglycerides Ur Specific [place] Urine Creatinine Crossmatch 06/12/21 06/12/21 06/12/21 11:05 11:05 12:18 WBC RBC Hgb Hct MCV MCH RDW Plt Count Lymph % (Auto) Randall % (Auto) Lymph # (Auto) Randall # (Auto) Seg Neutrophils % Seg Neuts % (Manual) Lymphocytes % (Manual) Monocytes % (Manual) Seg Neutrophils # Seg Neutrophils # Man Lymphocytes # (Manual) Monocytes # (Manual) PT 16.8 H INR 1.23 H APTT Fibrinogen D-Dimer ABG pH POC ABG pCO2 POC ABG pO2 ABG pO2 ABG HCO3 ABG O2 Saturation ABG Base Excess ABG Hemoglobin ABG Oxyhemoglobin Oxyhemoglobin Sodium Potassium Chloride Carbon Dioxide BUN 24 H Creatinine Glucose 324 H POC Glucose 281 H Lactic Acid Calcium 7.5 L Phosphorus Magnesium AST 70 H ALT 57 H Alkaline Phosphatase C-Reactive Protein Total Protein 6.0 L Albumin 3.6 L Triglycerides Ur Specific [place] Urine Creatinine Crossmatch 06/12/21 06/12/21 06/12/21 17:00 17:00 17:00 WBC RBC Hgb 7.5 L Hct 24.0 L MCV MCH RDW Plt Count Lymph % (Auto) Randall % (Auto) Lymph # (Auto) Randall # (Auto) Seg Neutrophils % Seg Neuts % (Manual) Lymphocytes % (Manual) Monocytes % (Manual) Seg Neutrophils # Seg Neutrophils # Man Lymphocytes # (Manual) Monocytes # (Manual) PT 16.0 H INR 1.16 H APTT Fibrinogen D-Dimer ABG pH POC ABG pCO2 POC ABG pO2 ABG pO2 ABG HCO3 ABG O2 Saturation ABG Base Excess ABG Hemoglobin ABG Oxyhemoglobin Oxyhemoglobin Sodium Potassium Chloride Carbon Dioxide BUN Creatinine Glucose POC Glucose Lactic Acid Calcium Phosphorus Magnesium AST ALT Alkaline Phosphatase C-Reactive Protein Total Protein Albumin Triglycerides Ur Specific [place] 1.035 H Urine Creatinine Crossmatch 06/12/21 06/12/21 06/12/21 18:06 23:00 23:05 WBC RBC Hgb 7.6 L Hct 23.5 L MCV MCH RDW Plt Count Lymph % (Auto) Randall % (Auto) Lymph # (Auto) Randall # (Auto) Seg Neutrophils % Seg Neuts % (Manual) Lymphocytes % (Manual) Monocytes % (Manual) Seg Neutrophils # Seg Neutrophils # Man Lymphocytes # (Manual) Monocytes # (Manual) PT INR APTT Fibrinogen D-Dimer ABG pH POC ABG pCO2 POC ABG pO2 ABG pO2 ABG HCO3 ABG O2 Saturation ABG Base Excess ABG Hemoglobin ABG Oxyhemoglobin Oxyhemoglobin Sodium Potassium Chloride Carbon Dioxide BUN Creatinine Glucose POC Glucose 257 H 300 H Lactic Acid Calcium Phosphorus Magnesium AST ALT Alkaline Phosphatase C-Reactive Protein Total Protein Albumin Triglycerides Ur Specific [place] Urine Creatinine Crossmatch 06/13/21 06/13/21 06/13/21 04:31 05:19 07:30 WBC RBC Hgb 6.8 L Hct 21.7 L MCV MCH RDW Plt Count Lymph % (Auto) Randall % (Auto) Lymph # (Auto) Randall # (Auto) Seg Neutrophils % Seg Neuts % (Manual) Lymphocytes % (Manual) Monocytes % (Manual) Seg Neutrophils # Seg Neutrophils # Man Lymphocytes # (Manual) Monocytes # (Manual) PT INR APTT Fibrinogen D-Dimer ABG pH 7.541 H POC ABG pCO2 25.6 L POC ABG pO2 138.8 H ABG pO2 ABG HCO3 ABG O2 Saturation ABG Base Excess ABG Hemoglobin 7.3 L ABG Oxyhemoglobin 98.1 H Oxyhemoglobin Sodium Potassium Chloride Carbon Dioxide BUN Creatinine Glucose POC Glucose 286 H Lactic Acid Calcium Phosphorus Magnesium AST ALT Alkaline Phosphatase C-Reactive Protein Total Protein Albumin Triglycerides Ur Specific [place] Urine Creatinine Crossmatch 06/13/21 06/13/21 06/13/21 07:30 12:04 14:50 WBC RBC Hgb Hct MCV MCH RDW Plt Count Lymph % (Auto) Randall % (Auto) Lymph # (Auto) Randall # (Auto) Seg Neutrophils % Seg Neuts % (Manual) Lymphocytes % (Manual) Monocytes % (Manual) Seg Neutrophils # Seg Neutrophils # Man Lymphocytes # (Manual) Monocytes # (Manual) PT INR APTT Fibrinogen D-Dimer ABG pH 7.039 L* 7.182 L* POC ABG pCO2 POC ABG pO2 ABG pO2 63.1 L ABG HCO3 17.4 L ABG O2 Saturation 73.4 L ABG Base Excess -12.6 L -7.1 L ABG Hemoglobin 7.7 L 6.9 L ABG Oxyhemoglobin Oxyhemoglobin 71.8 L 93.5 L Sodium Potassium Chloride 108.9 H Carbon Dioxide BUN 28 H Creatinine Glucose 293 H POC Glucose Lactic Acid Calcium 7.2 L Phosphorus Magnesium AST 106 H ALT 92 H Alkaline Phosphatase C-Reactive Protein Total Protein 5.6 L Albumin 3.3 L Triglycerides Ur Specific [place] Urine Creatinine Crossmatch 06/13/21 06/13/21 06/13/21 14:54 15:45 17:34 WBC RBC Hgb Hct MCV MCH RDW Plt Count Lymph % (Auto) Randall % (Auto) Lymph # (Auto) Randall # (Auto) Seg Neutrophils % Seg Neuts % (Manual) Lymphocytes % (Manual) Monocytes % (Manual) Seg Neutrophils # Seg Neutrophils # Man Lymphocytes # (Manual) Monocytes # (Manual) PT INR APTT Fibrinogen D-Dimer ABG pH POC ABG pCO2 POC ABG pO2 ABG pO2 178.4 H ABG HCO3 ABG O2 Saturation 99.1 H ABG Base Excess ABG Hemoglobin 8.0 L ABG Oxyhemoglobin Oxyhemoglobin Sodium Potassium Chloride 107.3 H Carbon Dioxide 19 L BUN 33 H Creatinine 1.5 H Glucose 379 H POC Glucose Lactic Acid 5.30 H* Calcium 6.8 L Phosphorus Magnesium AST ALT Alkaline Phosphatase C-Reactive Protein Total Protein Albumin Triglycerides Ur Specific [place] Urine Creatinine Crossmatch 06/13/21 06/13/21 06/13/21 17:40 23:29 Unknown WBC 22.5 H RBC 3.16 L Hgb 8.0 L Hct 26.0 L MCV MCH 26 L RDW 21.4 H Plt Count Lymph % (Auto) Randall % (Auto) Lymph # (Auto) Randall # (Auto) Seg Neutrophils % Seg Neuts % (Manual) 88.0 H Lymphocytes % (Manual) 4.0 L Monocytes % (Manual) Seg Neutrophils # Seg Neutrophils # Man 19.8 H Lymphocytes # (Manual) 0.9 L Monocytes # (Manual) 1.4 H PT INR APTT Fibrinogen D-Dimer ABG pH POC ABG pCO2 POC ABG pO2 ABG pO2 ABG HCO3 ABG O2 Saturation ABG Base Excess ABG Hemoglobin ABG Oxyhemoglobin Oxyhemoglobin Sodium Potassium Chloride Carbon Dioxide BUN Creatinine Glucose POC Glucose 294 H 288 H Lactic Acid Calcium Phosphorus Magnesium AST ALT Alkaline Phosphatase C-Reactive Protein Total Protein Albumin Triglycerides Ur Specific [place] Urine Creatinine Crossmatch 06/13/21 06/14/21 06/14/21 Unknown 05:39 06:15 WBC RBC 2.93 L Hgb 7.2 L Hct 23.2 L MCV MCH 25 L RDW 21.2 H Plt Count Lymph % (Auto) Randall % (Auto) Lymph # (Auto) Randall # (Auto) Seg Neutrophils % Seg Neuts % (Manual) Lymphocytes % (Manual) Monocytes % (Manual) Seg Neutrophils # Seg Neutrophils # Man Lymphocytes # (Manual) Monocytes # (Manual) PT 17.6 H INR 1.31 H APTT Fibrinogen 546 H D-Dimer 1244.63 H ABG pH POC ABG pCO2 POC ABG pO2 ABG pO2 ABG HCO3 ABG O2 Saturation ABG Base Excess ABG Hemoglobin ABG Oxyhemoglobin Oxyhemoglobin Sodium Potassium Chloride Carbon Dioxide BUN Creatinine Glucose POC Glucose 246 H Lactic Acid Calcium Phosphorus Magnesium AST ALT Alkaline Phosphatase C-Reactive Protein Total Protein Albumin Triglycerides Ur Specific [place] Urine Creatinine Crossmatch 06/14/21 06/14/21 06/14/21 06:15 06:15 09:13 WBC RBC Hgb Hct MCV MCH RDW Plt Count Lymph % (Auto) Randall % (Auto) Lymph # (Auto) Randall # (Auto) Seg Neutrophils % Seg Neuts % (Manual) Lymphocytes % (Manual) Monocytes % (Manual) Seg Neutrophils # Seg Neutrophils # Man Lymphocytes # (Manual) Monocytes # (Manual) PT INR APTT Fibrinogen D-Dimer ABG pH POC ABG pCO2 POC ABG pO2 ABG pO2 183.0 H ABG HCO3 ABG O2 Saturation 99.2 H ABG Base Excess ABG Hemoglobin 6.6 L ABG Oxyhemoglobin Oxyhemoglobin Sodium 147 H Potassium Chloride 112.5 H Carbon Dioxide 21 L BUN 36 H Creatinine 1.4 H Glucose 281 H POC Glucose Lactic Acid Calcium 6.9 L Phosphorus Magnesium AST ALT Alkaline Phosphatase C-Reactive Protein Total Protein Albumin Triglycerides 189 H Ur Specific [place] Urine Creatinine Crossmatch 06/14/21 06/14/21 06/14/21 10:45 12:16 13:30 WBC RBC Hgb 7.1 L Hct 22.3 L MCV MCH RDW Plt Count Lymph % (Auto) Randall % (Auto) Lymph # (Auto) Randall # (Auto) Seg Neutrophils % Seg Neuts % (Manual) Lymphocytes % (Manual) Monocytes % (Manual) Seg Neutrophils # Seg Neutrophils # Man Lymphocytes # (Manual) Monocytes # (Manual) PT INR APTT Fibrinogen D-Dimer ABG pH 7.205 L POC ABG pCO2 POC ABG pO2 ABG pO2 261.3 H ABG HCO3 ABG O2 Saturation 99.4 H ABG Base Excess -7.2 L ABG Hemoglobin 7.6 L ABG Oxyhemoglobin Oxyhemoglobin Sodium Potassium Chloride Carbon Dioxide BUN Creatinine Glucose POC Glucose 174 H Lactic Acid Calcium Phosphorus Magnesium AST ALT Alkaline Phosphatase C-Reactive Protein Total Protein Albumin Triglycerides Ur Specific [place] Urine Creatinine Crossmatch 06/14/21 06/14/21 06/15/21 17:40 18:43 00:06 WBC RBC Hgb Hct MCV MCH RDW Plt Count Lymph % (Auto) Randall % (Auto) Lymph # (Auto) Randall # (Auto) Seg Neutrophils % Seg Neuts % (Manual) Lymphocytes % (Manual) Monocytes % (Manual) Seg Neutrophils # Seg Neutrophils # Man Lymphocytes # (Manual) Monocytes # (Manual) PT INR APTT Fibrinogen D-Dimer ABG pH 7.292 L POC ABG pCO2 POC ABG pO2 ABG pO2 78.8 L ABG HCO3 ABG O2 Saturation ABG Base Excess -5.0 L ABG Hemoglobin 9.1 L ABG Oxyhemoglobin Oxyhemoglobin 93.7 L Sodium Potassium Chloride Carbon Dioxide BUN Creatinine Glucose POC Glucose 182 H 144 H Lactic Acid Calcium Phosphorus Magnesium AST ALT Alkaline Phosphatase C-Reactive Protein Total Protein Albumin Triglycerides Ur Specific [place] Urine Creatinine Crossmatch 06/15/21 06/15/21 06/15/21 03:55 03:56 10:40 WBC RBC Hgb 8.4 L Hct 25.8 L MCV MCH RDW Plt Count Lymph % (Auto) [place] % (Auto) Lymph # (Auto) [place] # (Auto) Seg Neutrophils % Seg Neuts % (Manual) Lymphocytes % (Manual) Monocytes % (Manual) Seg Neutrophils # Seg Neutrophils # Man Lymphocytes # (Manual) Monocytes # (Manual) PT INR APTT Fibrinogen D-Dimer ABG pH POC ABG pCO2 POC ABG pO2 ABG pO2 ABG HCO3 ABG O2 Saturation ABG Base Excess ABG Hemoglobin ABG Oxyhemoglobin Oxyhemoglobin Sodium 147 H Potassium Chloride 112.2 H Carbon Dioxide 21 L BUN 47 H Creatinine 1.9 H Glucose 272 H POC Glucose Lactic Acid Calcium 7.3 L Phosphorus Magnesium AST 64 H ALT 106 H Alkaline Phosphatase C-Reactive Protein Total Protein 5.1 L Albumin 2.9 L Triglycerides Ur Specific [place] Urine Creatinine 81.1 H Crossmatch 06/15/21 06/15/21 06/15/21 11:46 17:16 23:17 WBC RBC Hgb Hct MCV MCH RDW Plt Count Lymph % (Auto) [place] % (Auto) Lymph # (Auto) [place] # (Auto) Seg Neutrophils % Seg Neuts % (Manual) Lymphocytes % (Manual) Monocytes % (Manual) Seg Neutrophils # Seg Neutrophils # Man Lymphocytes # (Manual) Monocytes # (Manual) PT INR APTT Fibrinogen D-Dimer ABG pH POC ABG pCO2 POC ABG pO2 ABG pO2 ABG HCO3 ABG O2 Saturation ABG Base Excess ABG Hemoglobin ABG Oxyhemoglobin Oxyhemoglobin Sodium Potassium Chloride Carbon Dioxide BUN Creatinine Glucose POC Glucose 271 H 268 H 264 H Lactic Acid Calcium Phosphorus Magnesium AST ALT Alkaline Phosphatase C-Reactive Protein Total Protein Albumin Triglycerides Ur Specific [place] Urine Creatinine Crossmatch 06/15/21 06/15/21 06/16/21 Unknown Unknown 04:32 WBC RBC 3.21 L 3.16 L Hgb 8.4 L 8.2 L Hct 26.1 L 25.4 L MCV MCH 26 L 26 L RDW 21.3 H 21.2 H Plt Count 105 L 118 L Lymph % (Auto) [place] % (Auto) Lymph # (Auto) [place] # (Auto) Seg Neutrophils % Seg Neuts % (Manual) Lymphocytes % (Manual) Monocytes % (Manual) Seg Neutrophils # Seg Neutrophils # Man Lymphocytes # (Manual) Monocytes # (Manual) PT INR APTT Fibrinogen D-Dimer ABG pH 7.465 H POC ABG pCO2 POC ABG pO2 ABG pO2 114.1 H ABG HCO3 ABG O2 Saturation ABG Base Excess ABG Hemoglobin 8.4 L ABG Oxyhemoglobin Oxyhemoglobin Sodium Potassium Chloride Carbon Dioxide BUN Creatinine Glucose POC Glucose Lactic Acid Calcium Phosphorus Magnesium AST ALT Alkaline Phosphatase C-Reactive Protein Total Protein Albumin Triglycerides Ur Specific [place] Urine Creatinine Crossmatch 06/16/21 06/16/21 06/16/21 04:32 04:32 05:08 WBC RBC Hgb Hct MCV MCH RDW Plt Count Lymph % (Auto) [place] % (Auto) Lymph # (Auto) [place] # (Auto) Seg Neutrophils % Seg Neuts % (Manual) Lymphocytes % (Manual) Monocytes % (Manual) Seg Neutrophils # Seg Neutrophils # Man Lymphocytes # (Manual) Monocytes # (Manual) PT INR APTT Fibrinogen D-Dimer ABG pH POC ABG pCO2 POC ABG pO2 ABG pO2 ABG HCO3 ABG O2 Saturation ABG Base Excess ABG Hemoglobin ABG Oxyhemoglobin Oxyhemoglobin Sodium 148 H Potassium 3.3 L Chloride 115.1 H Carbon Dioxide 21 L BUN 54 H Creatinine 1.6 H Glucose 367 H POC Glucose 356 H Lactic Acid Calcium 7.4 L Phosphorus Magnesium AST ALT Alkaline Phosphatase C-Reactive Protein 3.30 H Total Protein Albumin Triglycerides Ur Specific [place] Urine Creatinine Crossmatch 06/16/21 06/16/21 06/16/21 05:30 11:46 17:03 WBC RBC Hgb Hct MCV MCH RDW Plt Count Lymph % (Auto) [place] % (Auto) Lymph # (Auto) [place] # (Auto) Seg Neutrophils % Seg Neuts % (Manual) Lymphocytes % (Manual) Monocytes % (Manual) Seg Neutrophils # Seg Neutrophils # Man Lymphocytes # (Manual) Monocytes # (Manual) PT INR APTT Fibrinogen D-Dimer ABG pH 7.475 H POC ABG pCO2 POC ABG pO2 ABG pO2 171.8 H ABG HCO3 ABG O2 Saturation 99.1 H ABG Base Excess ABG Hemoglobin 11.7 L ABG Oxyhemoglobin Oxyhemoglobin Sodium Potassium Chloride Carbon Dioxide BUN Creatinine Glucose POC Glucose 309 H 345 H Lactic Acid Calcium Phosphorus Magnesium AST ALT Alkaline Phosphatase C-Reactive Protein Total Protein Albumin Triglycerides Ur Specific [place] Urine Creatinine Crossmatch 06/16/21 06/16/21 06/17/21 20:18 23:22 04:50 WBC RBC Hgb Hct MCV MCH RDW Plt Count Lymph % (Auto) [place] % (Auto) Lymph # (Auto) [place] # (Auto) Seg Neutrophils % Seg Neuts % (Manual) Lymphocytes % (Manual) Monocytes % (Manual) Seg Neutrophils # Seg Neutrophils # Man Lymphocytes # (Manual) Monocytes # (Manual) PT INR APTT Fibrinogen D-Dimer ABG pH 7.479 H POC ABG pCO2 POC ABG pO2 ABG pO2 143.1 H ABG HCO3 ABG O2 Saturation ABG Base Excess ABG Hemoglobin 10.0 L ABG Oxyhemoglobin Oxyhemoglobin Sodium Potassium Chloride Carbon Dioxide BUN Creatinine Glucose POC Glucose 325 H 315 H Lactic Acid Calcium Phosphorus Magnesium AST ALT Alkaline Phosphatase C-Reactive Protein Total Protein Albumin Triglycerides Ur Specific [place] Urine Creatinine Crossmatch 06/17/21 06/17/21 06/17/21 05:18 05:30 05:30 WBC RBC 3.17 L Hgb 8.2 L Hct 25.5 L MCV MCH 26 L RDW 21.2 H Plt Count 128 L Lymph % (Auto) [place] % (Auto) Lymph # (Auto) [place] # (Auto) Seg Neutrophils % Seg Neuts % (Manual) Lymphocytes % (Manual) Monocytes % (Manual) Seg Neutrophils # Seg Neutrophils # Man Lymphocytes # (Manual) Monocytes # (Manual) PT INR APTT Fibrinogen D-Dimer ABG pH POC ABG pCO2 POC ABG pO2 ABG pO2 ABG HCO3 ABG O2 Saturation ABG Base Excess ABG Hemoglobin ABG Oxyhemoglobin Oxyhemoglobin Sodium 148 H Potassium Chloride 113.7 H Carbon Dioxide 20 L BUN 57 H Creatinine 1.4 H Glucose 351 H POC Glucose 324 H Lactic Acid Calcium 8.0 L Phosphorus 2.30 L Magnesium AST ALT Alkaline Phosphatase C-Reactive Protein Total Protein Albumin Triglycerides Ur Specific [place] Urine Creatinine Crossmatch 06/17/21 06/17/21 06/17/21 11:49 17:43 21:42 WBC RBC Hgb Hct MCV MCH RDW Plt Count Lymph % (Auto) [place] % (Auto) Lymph # (Auto) [place] # (Auto) Seg Neutrophils % Seg Neuts % (Manual) Lymphocytes % (Manual) Monocytes % (Manual) Seg Neutrophils # Seg Neutrophils # Man Lymphocytes # (Manual) Monocytes # (Manual) PT INR APTT Fibrinogen D-Dimer ABG pH POC ABG pCO2 POC ABG pO2 ABG pO2 ABG HCO3 ABG O2 Saturation ABG Base Excess ABG Hemoglobin ABG Oxyhemoglobin Oxyhemoglobin Sodium Potassium Chloride Carbon Dioxide BUN Creatinine Glucose POC Glucose 305 H 307 H 286 H Lactic Acid Calcium Phosphorus Magnesium AST ALT Alkaline Phosphatase C-Reactive Protein Total Protein Albumin Triglycerides Ur Specific [place] Urine Creatinine Crossmatch 06/17/21 06/18/21 06/18/21 23:59 04:20 04:37 WBC RBC 3.53 L Hgb 9.1 L Hct 28.7 L MCV MCH 26 L RDW 21.3 H Plt Count Lymph % (Auto) [place] % (Auto) Lymph # (Auto) [place] # (Auto) Seg Neutrophils % Seg Neuts % (Manual) Lymphocytes % (Manual) Monocytes % (Manual) Seg Neutrophils # Seg Neutrophils # Man Lymphocytes # (Manual) Monocytes # (Manual) PT INR APTT Fibrinogen D-Dimer ABG pH 7.495 H POC ABG pCO2 POC ABG pO2 ABG pO2 108.3 H ABG HCO3 ABG O2 Saturation ABG Base Excess -2.1 L ABG Hemoglobin 10.0 L ABG Oxyhemoglobin Oxyhemoglobin Sodium Potassium Chloride Carbon Dioxide BUN Creatinine Glucose POC Glucose 264 H Lactic Acid Calcium Phosphorus Magnesium AST ALT Alkaline Phosphatase C-Reactive Protein Total Protein Albumin Triglycerides Ur Specific [place] Urine Creatinine Crossmatch 06/18/21 06/18/21 06/18/21 04:37 05:32 11:21 WBC RBC Hgb Hct MCV MCH RDW Plt Count Lymph % (Auto) [place] % (Auto) Lymph # (Auto) [place] # (Auto) Seg Neutrophils % Seg Neuts % (Manual) Lymphocytes % (Manual) Monocytes % (Manual) Seg Neutrophils # Seg Neutrophils # Man Lymphocytes # (Manual) Monocytes # (Manual) PT INR APTT Fibrinogen D-Dimer ABG pH POC ABG pCO2 POC ABG pO2 ABG pO2 ABG HCO3 ABG O2 Saturation ABG Base Excess ABG Hemoglobin ABG Oxyhemoglobin Oxyhemoglobin Sodium 148 H Potassium Chloride 114.7 H Carbon Dioxide BUN 59 H Creatinine 1.3 H Glucose 329 H POC Glucose 293 H 291 H Lactic Acid Calcium 8.1 L Phosphorus Magnesium AST ALT Alkaline Phosphatase C-Reactive Protein Total Protein Albumin Triglycerides Ur Specific [place] Urine Creatinine Crossmatch 06/18/21 06/18/21 06/19/21 18:21 21:46 00:15 WBC RBC Hgb Hct MCV MCH RDW Plt Count Lymph % (Auto) [place] % (Auto) Lymph # (Auto) [place] # (Auto) Seg Neutrophils % Seg Neuts % (Manual) Lymphocytes % (Manual) Monocytes % (Manual) Seg Neutrophils # Seg Neutrophils # Man Lymphocytes # (Manual) Monocytes # (Manual) PT INR APTT Fibrinogen D-Dimer ABG pH POC ABG pCO2 POC ABG pO2 ABG pO2 ABG HCO3 ABG O2 Saturation ABG Base Excess ABG Hemoglobin ABG Oxyhemoglobin Oxyhemoglobin Sodium Potassium Chloride Carbon Dioxide BUN Creatinine Glucose POC Glucose 239 H 259 H 310 H Lactic Acid Calcium Phosphorus Magnesium AST ALT Alkaline Phosphatase C-Reactive Protein Total Protein Albumin Triglycerides Ur Specific [place] Urine Creatinine Crossmatch 06/19/21 06/19/21 06/19/21 04:00 04:00 04:50 WBC RBC 3.64 L Hgb 9.1 L Hct 29.1 L MCV MCH 25 L RDW 21.5 H Plt Count Lymph % (Auto) [place] % (Auto) Lymph # (Auto) [place] # (Auto) Seg Neutrophils % Seg Neuts % (Manual) Lymphocytes % (Manual) Monocytes % (Manual) Seg Neutrophils # Seg Neutrophils # Man Lymphocytes # (Manual) Monocytes # (Manual) PT INR APTT Fibrinogen D-Dimer ABG pH POC ABG pCO2 POC ABG pO2 ABG pO2 78.9 L ABG HCO3 ABG O2 Saturation ABG Base Excess -3.2 L ABG Hemoglobin 7.6 L ABG Oxyhemoglobin Oxyhemoglobin Sodium 148 H Potassium Chloride 114.9 H Carbon Dioxide 19 L BUN 59 H Creatinine Glucose 345 H POC Glucose Lactic Acid Calcium 8.1 L Phosphorus 4.60 H D Magnesium 2.40 H AST ALT Alkaline Phosphatase C-Reactive Protein Total Protein Albumin Triglycerides Ur Specific [place] Urine Creatinine Crossmatch 06/19/21 06/19/21 06/19/21 06:28 11:11 17:20 WBC RBC Hgb Hct MCV MCH RDW Plt Count Lymph % (Auto) [place] % (Auto) Lymph # (Auto) [place] # (Auto) Seg Neutrophils % Seg Neuts % (Manual) Lymphocytes % (Manual) Monocytes % (Manual) Seg Neutrophils # Seg Neutrophils # Man Lymphocytes # (Manual) Monocytes # (Manual) PT 29.7 H INR 2.57 H APTT Fibrinogen D-Dimer ABG pH POC ABG pCO2 POC ABG pO2 ABG pO2 ABG HCO3 ABG O2 Saturation ABG Base Excess ABG Hemoglobin ABG Oxyhemoglobin Oxyhemoglobin Sodium Potassium Chloride Carbon Dioxide BUN Creatinine Glucose POC Glucose 279 H 275 H Lactic Acid Calcium Phosphorus Magnesium AST ALT Alkaline Phosphatase C-Reactive Protein Total Protein Albumin Triglycerides Ur Specific [place] Urine Creatinine Crossmatch 06/19/21 06/19/21 06/19/21 18:30 19:20 23:27 WBC RBC Hgb 8.0 L Hct 25.0 L MCV MCH RDW Plt Count Lymph % (Auto) [place] % (Auto) Lymph # (Auto) [place] # (Auto) Seg Neutrophils % Seg Neuts % (Manual) Lymphocytes % (Manual) Monocytes % (Manual) Seg Neutrophils # Seg Neutrophils # Man Lymphocytes # (Manual) Monocytes # (Manual) PT INR APTT Fibrinogen D-Dimer ABG pH POC ABG pCO2 POC ABG pO2 ABG pO2 ABG HCO3 ABG O2 Saturation ABG Base Excess ABG Hemoglobin ABG Oxyhemoglobin Oxyhemoglobin Sodium Potassium Chloride Carbon Dioxide BUN Creatinine Glucose POC Glucose 279 H 290 H Lactic Acid Calcium Phosphorus Magnesium AST ALT Alkaline Phosphatase C-Reactive Protein Total Protein Albumin Triglycerides Ur Specific [place] Urine Creatinine Crossmatch 06/20/21 06/20/21 06/20/21 00:00 04:33 04:33 WBC 22.3 H RBC 3.31 L Hgb 7.4 L 8.5 L Hct 22.5 L 26.5 L MCV MCH 26 L RDW 21.5 H Plt Count Lymph % (Auto) [place] % (Auto) Lymph # (Auto) [place] # (Auto) Seg Neutrophils % Seg Neuts % (Manual) Lymphocytes % (Manual) Monocytes % (Manual) Seg Neutrophils # Seg Neutrophils # Man Lymphocytes # (Manual) Monocytes # (Manual) PT INR APTT Fibrinogen D-Dimer ABG pH POC ABG pCO2 POC ABG pO2 ABG pO2 ABG HCO3 ABG O2 Saturation ABG Base Excess ABG Hemoglobin ABG Oxyhemoglobin Oxyhemoglobin Sodium 148 H Potassium Chloride 114.2 H Carbon Dioxide BUN 70 H Creatinine 1.4 H Glucose 313 H POC Glucose Lactic Acid Calcium 8.2 L Phosphorus Magnesium 2.50 H AST ALT Alkaline Phosphatase C-Reactive Protein Total Protein Albumin Triglycerides Ur Specific [place] Urine Creatinine Crossmatch 06/20/21 06/20/21 06/20/21 04:33 05:27 11:21 WBC RBC Hgb Hct MCV MCH RDW Plt Count Lymph % (Auto) [place] % (Auto) Lymph # (Auto) [place] # (Auto) Seg Neutrophils % Seg Neuts % (Manual) Lymphocytes % (Manual) Monocytes % (Manual) Seg Neutrophils # Seg Neutrophils # Man Lymphocytes # (Manual) Monocytes # (Manual) PT 18.3 H INR 1.37 H APTT Fibrinogen D-Dimer ABG pH POC ABG pCO2 POC ABG pO2 ABG pO2 ABG HCO3 ABG O2 Saturation ABG Base Excess ABG Hemoglobin ABG Oxyhemoglobin Oxyhemoglobin Sodium Potassium Chloride Carbon Dioxide BUN Creatinine Glucose POC Glucose 288 H 306 H Lactic Acid Calcium Phosphorus Magnesium AST ALT Alkaline Phosphatase C-Reactive Protein Total Protein Albumin Triglycerides Ur Specific [place] Urine Creatinine Crossmatch 06/20/21 06/20/21 06/20/21 12:23 15:56 18:20 WBC RBC Hgb 8.2 L 8.1 L Hct 25.9 L 25.5 L MCV MCH RDW Plt Count Lymph % (Auto) [place] % (Auto) Lymph # (Auto) [place] # (Auto) Seg Neutrophils % Seg Neuts % (Manual) Lymphocytes % (Manual) Monocytes % (Manual) Seg Neutrophils # Seg Neutrophils # Man Lymphocytes # (Manual) Monocytes # (Manual) PT INR APTT Fibrinogen D-Dimer ABG pH POC ABG pCO2 POC ABG pO2 ABG pO2 ABG HCO3 ABG O2 Saturation ABG Base Excess ABG Hemoglobin ABG Oxyhemoglobin Oxyhemoglobin Sodium Potassium Chloride Carbon Dioxide BUN Creatinine Glucose POC Glucose 293 H Lactic Acid Calcium Phosphorus Magnesium AST ALT Alkaline Phosphatase C-Reactive Protein Total Protein Albumin Triglycerides Ur Specific [place] Urine Creatinine Crossmatch 06/20/21 06/21/21 06/21/21 23:11 04:20 04:42 WBC 15.1 H RBC 2.84 L Hgb 7.3 L Hct 23.1 L MCV MCH 26 L RDW 21.5 H Plt Count Lymph % (Auto) 3.5 L [place] % (Auto) 11.7 H Lymph # (Auto) 0.5 L [place] # (Auto) 1.8 H Seg Neutrophils % 84.7 H Seg Neuts % (Manual) Lymphocytes % (Manual) Monocytes % (Manual) Seg Neutrophils # 12.8 H Seg Neutrophils # Man Lymphocytes # (Manual) Monocytes # (Manual) PT INR APTT Fibrinogen D-Dimer ABG pH POC ABG pCO2 POC ABG pO2 ABG pO2 98.5 H ABG HCO3 ABG O2 Saturation ABG Base Excess ABG Hemoglobin 7.2 L ABG Oxyhemoglobin Oxyhemoglobin Sodium Potassium Chloride Carbon Dioxide BUN Creatinine Glucose POC Glucose 206 H Lactic Acid Calcium Phosphorus Magnesium AST ALT Alkaline Phosphatase C-Reactive Protein Total Protein Albumin Triglycerides Ur Specific [place] Urine Creatinine Crossmatch 06/21/21 06/21/21 06/21/21 04:42 05:08 11:06 WBC RBC Hgb Hct MCV MCH RDW Plt Count Lymph % (Auto) [place] % (Auto) Lymph # (Auto) [place] # (Auto) Seg Neutrophils % Seg Neuts % (Manual) Lymphocytes % (Manual) Monocytes % (Manual) Seg Neutrophils # Seg Neutrophils # Man Lymphocytes # (Manual) Monocytes # (Manual) PT INR APTT Fibrinogen D-Dimer ABG pH POC ABG pCO2 POC ABG pO2 ABG pO2 ABG HCO3 ABG O2 Saturation ABG Base Excess ABG Hemoglobin ABG Oxyhemoglobin Oxyhemoglobin Sodium 151 H Potassium Chloride 117.2 H Carbon Dioxide 21 L BUN 75 H Creatinine 1.6 H Glucose 216 H POC Glucose 190 H 204 H Lactic Acid Calcium 7.9 L Phosphorus Magnesium 2.60 H AST ALT Alkaline Phosphatase C-Reactive Protein Total Protein Albumin Triglycerides 254 H Ur Specific [place] Urine Creatinine Crossmatch 06/21/21 06/21/21 06/21/21 14:00 16:42 21:52 WBC RBC Hgb 7.1 L 7.2 L Hct 22.0 L 22.1 L MCV MCH RDW Plt Count Lymph % (Auto) [place] % (Auto) Lymph # (Auto) [place] # (Auto) Seg Neutrophils % Seg Neuts % (Manual) Lymphocytes % (Manual) Monocytes % (Manual) Seg Neutrophils # Seg Neutrophils # Man Lymphocytes # (Manual) Monocytes # (Manual) PT INR APTT Fibrinogen D-Dimer ABG pH POC ABG pCO2 POC ABG pO2 ABG pO2 ABG HCO3 ABG O2 Saturation ABG Base Excess ABG Hemoglobin ABG Oxyhemoglobin Oxyhemoglobin Sodium Potassium Chloride Carbon Dioxide BUN Creatinine Glucose POC Glucose 207 H Lactic Acid Calcium Phosphorus Magnesium AST ALT Alkaline Phosphatase C-Reactive Protein Total Protein Albumin Triglycerides Ur Specific [place] Urine Creatinine Crossmatch 06/21/21 06/22/21 06/22/21 23:29 04:30 04:30 WBC 16.8 H RBC 2.93 L Hgb 7.4 L Hct 23.9 L MCV MCH 25 L RDW 21.8 H Plt Count Lymph % (Auto) [place] % (Auto) Lymph # (Auto) [place] # (Auto) Seg Neutrophils % Seg Neuts % (Manual) Lymphocytes % (Manual) Monocytes % (Manual) Seg Neutrophils # Seg Neutrophils # Man Lymphocytes # (Manual) Monocytes # (Manual) PT INR APTT Fibrinogen D-Dimer ABG pH POC ABG pCO2 POC ABG pO2 ABG pO2 ABG HCO3 ABG O2 Saturation ABG Base Excess ABG Hemoglobin ABG Oxyhemoglobin Oxyhemoglobin Sodium 151 H Potassium Chloride 118.7 H Carbon Dioxide BUN 57 H Creatinine Glucose 238 H POC Glucose 273 H Lactic Acid Calcium 8.0 L Phosphorus Magnesium 2.70 H AST ALT Alkaline Phosphatase C-Reactive Protein Total Protein Albumin Triglycerides Ur Specific [place] Urine Creatinine Crossmatch 06/22/21 06/22/21 06/22/21 05:17 11:31 14:20 WBC RBC Hgb 7.4 L Hct 22.5 L MCV MCH RDW Plt Count Lymph % (Auto) [place] % (Auto) Lymph # (Auto) [place] # (Auto) Seg Neutrophils % Seg Neuts % (Manual) Lymphocytes % (Manual) Monocytes % (Manual) Seg Neutrophils # Seg Neutrophils # Man Lymphocytes # (Manual) Monocytes # (Manual) PT INR APTT Fibrinogen D-Dimer ABG pH POC ABG pCO2 POC ABG pO2 ABG pO2 ABG HCO3 ABG O2 Saturation ABG Base Excess ABG Hemoglobin ABG Oxyhemoglobin Oxyhemoglobin Sodium Potassium Chloride Carbon Dioxide BUN Creatinine Glucose POC Glucose 214 H 214 H Lactic Acid Calcium Phosphorus Magnesium AST ALT Alkaline Phosphatase C-Reactive Protein Total Protein Albumin Triglycerides Ur Specific [place] Urine Creatinine Crossmatch 06/22/21 06/22/21 06/23/21 17:18 23:47 05:33 WBC RBC Hgb Hct MCV MCH RDW Plt Count Lymph % (Auto) [place] % (Auto) Lymph # (Auto) [place] # (Auto) Seg Neutrophils % Seg Neuts % (Manual) Lymphocytes % (Manual) Monocytes % (Manual) Seg Neutrophils # Seg Neutrophils # Man Lymphocytes # (Manual) Monocytes # (Manual) PT INR APTT Fibrinogen D-Dimer ABG pH POC ABG pCO2 POC ABG pO2 ABG pO2 ABG HCO3 ABG O2 Saturation ABG Base Excess ABG Hemoglobin ABG Oxyhemoglobin Oxyhemoglobin Sodium Potassium Chloride Carbon Dioxide BUN Creatinine Glucose POC Glucose 238 H 227 H 202 H Lactic Acid Calcium Phosphorus Magnesium AST ALT Alkaline Phosphatase C-Reactive Protein Total Protein Albumin Triglycerides Ur Specific [place] Urine Creatinine Crossmatch 06/23/21 06/23/21 06/23/21 10:04 10:04 11:06 WBC 20.3 H RBC 2.71 L Hgb 7.3 L Hct 21.8 L MCV MCH 27 L RDW 22.1 H Plt Count Lymph % (Auto) [place] % (Auto) Lymph # (Auto) [place] # (Auto) Seg Neutrophils % Seg Neuts % (Manual) Lymphocytes % (Manual) Monocytes % (Manual) Seg Neutrophils # Seg Neutrophils # Man Lymphocytes # (Manual) Monocytes # (Manual) PT INR APTT Fibrinogen D-Dimer ABG pH POC ABG pCO2 POC ABG pO2 ABG pO2 ABG HCO3 ABG O2 Saturation ABG Base Excess ABG Hemoglobin ABG Oxyhemoglobin Oxyhemoglobin Sodium 151 H Potassium 3.2 L Chloride 116.9 H Carbon Dioxide BUN 40 H Creatinine Glucose 208 H POC Glucose 204 H Lactic Acid Calcium 8.0 L Phosphorus 1.80 L D Magnesium AST ALT Alkaline Phosphatase C-Reactive Protein Total Protein Albumin Triglycerides Ur Specific [place] Urine Creatinine Crossmatch 06/23/21 06/23/21 06/24/21 16:11 23:47 04:00 WBC 16.9 H RBC 2.49 L Hgb 6.6 L Hct 20.3 L MCV MCH 26 L RDW 22.6 H Plt Count Lymph % (Auto) [place] % (Auto) Lymph # (Auto) [place] # (Auto) Seg Neutrophils % Seg Neuts % (Manual) Lymphocytes % (Manual) Monocytes % (Manual) Seg Neutrophils # Seg Neutrophils # Man Lymphocytes # (Manual) Monocytes # (Manual) PT INR APTT Fibrinogen D-Dimer ABG pH POC ABG pCO2 POC ABG pO2 ABG pO2 ABG HCO3 ABG O2 Saturation ABG Base Excess ABG Hemoglobin ABG Oxyhemoglobin Oxyhemoglobin Sodium Potassium Chloride Carbon Dioxide BUN Creatinine Glucose POC Glucose 228 H 189 H Lactic Acid Calcium Phosphorus Magnesium AST ALT Alkaline Phosphatase C-Reactive Protein Total Protein Albumin Triglycerides Ur Specific [place] Urine Creatinine Crossmatch 06/24/21 06/24/21 06/24/21 04:00 05:43 06:40 WBC RBC Hgb Hct MCV MCH RDW Plt Count Lymph % (Auto) [place] % (Auto) Lymph # (Auto) [place] # (Auto) Seg Neutrophils % Seg Neuts % (Manual) Lymphocytes % (Manual) Monocytes % (Manual) Seg Neutrophils # Seg Neutrophils # Man Lymphocytes # (Manual) Monocytes # (Manual) PT INR APTT Fibrinogen D-Dimer ABG pH POC ABG pCO2 POC ABG pO2 ABG pO2 ABG HCO3 ABG O2 Saturation ABG Base Excess ABG Hemoglobin ABG Oxyhemoglobin Oxyhemoglobin Sodium 148 H Potassium 3.2 L Chloride 115.6 H Carbon Dioxide BUN 35 H Creatinine Glucose 153 H POC Glucose 134 H Lactic Acid Calcium 7.9 L Phosphorus 2.40 L D Magnesium AST ALT Alkaline Phosphatase C-Reactive Protein Total Protein Albumin Triglycerides Ur Specific [place] Urine Creatinine Crossmatch See Detail 06/24/21 06/24/21 06/24/21 11:08 16:47 21:49 WBC RBC Hgb Hct MCV MCH RDW Plt Count Lymph % (Auto) [place] % (Auto) Lymph # (Auto) [place] # (Auto) Seg Neutrophils % Seg Neuts % (Manual) Lymphocytes % (Manual) Monocytes % (Manual) Seg Neutrophils # Seg Neutrophils # Man Lymphocytes # (Manual) Monocytes # (Manual) PT INR APTT Fibrinogen D-Dimer ABG pH POC ABG pCO2 POC ABG pO2 ABG pO2 ABG HCO3 ABG O2 Saturation ABG Base Excess ABG Hemoglobin ABG Oxyhemoglobin Oxyhemoglobin Sodium Potassium Chloride Carbon Dioxide BUN Creatinine Glucose POC Glucose 153 H 201 H 132 H Lactic Acid Calcium Phosphorus Magnesium AST ALT Alkaline Phosphatase C-Reactive Protein Total Protein Albumin Triglycerides Ur Specific [place] Urine Creatinine Crossmatch 06/24/21 06/25/21 06/25/21 23:24 05:30 09:00 WBC RBC Hgb 8.3 L Hct 27.0 L MCV MCH RDW Plt Count Lymph % (Auto) [place] % (Auto) Lymph # (Auto) [place] # (Auto) Seg Neutrophils % Seg Neuts % (Manual) Lymphocytes % (Manual) Monocytes % (Manual) Seg Neutrophils # Seg Neutrophils # Man Lymphocytes # (Manual) Monocytes # (Manual) PT INR APTT Fibrinogen D-Dimer ABG pH POC ABG pCO2 POC ABG pO2 ABG pO2 ABG HCO3 ABG O2 Saturation ABG Base Excess ABG Hemoglobin ABG Oxyhemoglobin Oxyhemoglobin Sodium Potassium Chloride Carbon Dioxide BUN Creatinine Glucose POC Glucose 170 H 151 H Lactic Acid Calcium Phosphorus Magnesium AST ALT Alkaline Phosphatase C-Reactive Protein Total Protein Albumin Triglycerides Ur Specific [place] Urine Creatinine Crossmatch 06/25/21 06/25/21 06/25/21 11:29 14:24 16:48 WBC RBC Hgb 8.5 L Hct 27.5 L MCV MCH RDW Plt Count Lymph % (Auto) [place] % (Auto) Lymph # (Auto) [place] # (Auto) Seg Neutrophils % Seg Neuts % (Manual) Lymphocytes % (Manual) Monocytes % (Manual) Seg Neutrophils # Seg Neutrophils # Man Lymphocytes # (Manual) Monocytes # (Manual) PT INR APTT Fibrinogen D-Dimer ABG pH POC ABG pCO2 POC ABG pO2 ABG pO2 ABG HCO3 ABG O2 Saturation ABG Base Excess ABG Hemoglobin ABG Oxyhemoglobin Oxyhemoglobin Sodium Potassium Chloride Carbon Dioxide BUN Creatinine Glucose POC Glucose 189 H 224 H Lactic Acid Calcium Phosphorus Magnesium AST ALT Alkaline Phosphatase C-Reactive Protein Total Protein Albumin Triglycerides Ur Specific [place] Urine Creatinine Crossmatch 06/25/21 06/25/21 06/25/21 23:39 Unknown Unknown WBC 16.5 H RBC 2.90 L Hgb 8.0 L Hct 23.8 L MCV MCH RDW 22.8 H Plt Count Lymph % (Auto) [place] % (Auto) Lymph # (Auto) [place] # (Auto) Seg Neutrophils % Seg Neuts % (Manual) Lymphocytes % (Manual) Monocytes % (Manual) Seg Neutrophils # Seg Neutrophils # Man Lymphocytes # (Manual) Monocytes # (Manual) PT INR APTT Fibrinogen D-Dimer ABG pH POC ABG pCO2 POC ABG pO2 ABG pO2 ABG HCO3 ABG O2 Saturation ABG Base Excess ABG Hemoglobin ABG Oxyhemoglobin Oxyhemoglobin Sodium 149 H Potassium Chloride 115.6 H Carbon Dioxide BUN 28 H Creatinine Glucose 157 H POC Glucose 187 H Lactic Acid Calcium 8.0 L Phosphorus Magnesium AST ALT Alkaline Phosphatase C-Reactive Protein Total Protein Albumin Triglycerides Ur Specific [place] Urine Creatinine Crossmatch 06/26/21 06/26/21 06/26/21 05:22 05:29 05:29 WBC 16.2 H RBC 3.03 L Hgb 8.0 L Hct 25.1 L MCV MCH 26 L RDW 23.2 H Plt Count Lymph % (Auto) [place] % (Auto) Lymph # (Auto) [place] # (Auto) Seg Neutrophils % Seg Neuts % (Manual) Lymphocytes % (Manual) Monocytes % (Manual) Seg Neutrophils # Seg Neutrophils # Man Lymphocytes # (Manual) Monocytes # (Manual) PT INR APTT Fibrinogen D-Dimer ABG pH POC ABG pCO2 POC ABG pO2 ABG pO2 ABG HCO3 ABG O2 Saturation ABG Base Excess ABG Hemoglobin ABG Oxyhemoglobin Oxyhemoglobin Sodium 150 H Potassium Chloride 114.8 H Carbon Dioxide BUN 29 H Creatinine Glucose 229 H POC Glucose 211 H Lactic Acid Calcium 8.2 L Phosphorus Magnesium AST ALT Alkaline Phosphatase C-Reactive Protein Total Protein Albumin Triglycerides Ur Specific [place] Urine Creatinine Crossmatch 06/26/21 06/26/21 06/26/21 11:05 15:59 22:00 WBC RBC Hgb Hct MCV MCH RDW Plt Count Lymph % (Auto) [place] % (Auto) Lymph # (Auto) [place] # (Auto) Seg Neutrophils % Seg Neuts % (Manual) Lymphocytes % (Manual) Monocytes % (Manual) Seg Neutrophils # Seg Neutrophils # Man Lymphocytes # (Manual) Monocytes # (Manual) PT INR APTT Fibrinogen D-Dimer ABG pH POC ABG pCO2 POC ABG pO2 ABG pO2 ABG HCO3 ABG O2 Saturation ABG Base Excess ABG Hemoglobin ABG Oxyhemoglobin Oxyhemoglobin Sodium Potassium Chloride Carbon Dioxide BUN Creatinine Glucose POC Glucose 213 H 222 H 161 H Lactic Acid Calcium Phosphorus Magnesium AST ALT Alkaline Phosphatase C-Reactive Protein Total Protein Albumin Triglycerides Ur Specific [place] Urine Creatinine Crossmatch 06/26/21 06/27/21 06/27/21 23:24 04:15 04:15 WBC 14.3 H RBC 2.96 L Hgb 8.1 L Hct 24.6 L MCV MCH 27 L RDW 23.0 H Plt Count Lymph % (Auto) [place] % (Auto) Lymph # (Auto) [place] # (Auto) Seg Neutrophils % Seg Neuts % (Manual) Lymphocytes % (Manual) Monocytes % (Manual) Seg Neutrophils # Seg Neutrophils # Man Lymphocytes # (Manual) Monocytes # (Manual) PT INR APTT Fibrinogen D-Dimer ABG pH POC ABG pCO2 POC ABG pO2 ABG pO2 ABG HCO3 ABG O2 Saturation ABG Base Excess ABG Hemoglobin ABG Oxyhemoglobin Oxyhemoglobin Sodium 150 H Potassium Chloride 113.8 H Carbon Dioxide BUN 26 H Creatinine Glucose 246 H POC Glucose 164 H Lactic Acid Calcium 7.8 L Phosphorus Magnesium AST ALT Alkaline Phosphatase C-Reactive Protein Total Protein Albumin Triglycerides Ur Specific [place] Urine Creatinine Crossmatch 06/27/21 06/27/21 06/27/21 05:44 11:07 16:06 WBC RBC Hgb Hct MCV MCH RDW Plt Count Lymph % (Auto) [place] % (Auto) Lymph # (Auto) [place] # (Auto) Seg Neutrophils % Seg Neuts % (Manual) Lymphocytes % (Manual) Monocytes % (Manual) Seg Neutrophils # Seg Neutrophils # Man Lymphocytes # (Manual) Monocytes # (Manual) PT INR APTT Fibrinogen D-Dimer ABG pH POC ABG pCO2 POC ABG pO2 ABG pO2 ABG HCO3 ABG O2 Saturation ABG Base Excess ABG Hemoglobin ABG Oxyhemoglobin Oxyhemoglobin Sodium Potassium Chloride Carbon Dioxide BUN Creatinine Glucose POC Glucose 226 H 204 H 224 H Lactic Acid Calcium Phosphorus Magnesium AST ALT Alkaline Phosphatase C-Reactive Protein Total Protein Albumin Triglycerides Ur Specific [place] Urine Creatinine Crossmatch 06/27/21 06/28/21 06/28/21 23:49 04:00 04:00 WBC 15.4 H RBC 3.05 L Hgb 8.2 L Hct 25.0 L MCV MCH 27 L RDW 22.6 H Plt Count Lymph % (Auto) [place] % (Auto) Lymph # (Auto) [place] # (Auto) Seg Neutrophils % Seg Neuts % (Manual) Lymphocytes % (Manual) Monocytes % (Manual) Seg Neutrophils # Seg Neutrophils # Man Lymphocytes # (Manual) Monocytes # (Manual) PT INR APTT Fibrinogen D-Dimer ABG pH POC ABG pCO2 POC ABG pO2 ABG pO2 ABG HCO3 ABG O2 Saturation ABG Base Excess ABG Hemoglobin ABG Oxyhemoglobin Oxyhemoglobin Sodium 152 H Potassium 3.0 L Chloride 114.9 H Carbon Dioxide BUN 24 H Creatinine Glucose 158 H POC Glucose 195 H Lactic Acid Calcium 8.1 L Phosphorus Magnesium AST ALT Alkaline Phosphatase C-Reactive Protein Total Protein Albumin Triglycerides Ur Specific [place] Urine Creatinine Crossmatch 06/28/21 06/28/21 06/28/21 05:05 11:47 17:21 WBC RBC Hgb Hct MCV MCH RDW Plt Count Lymph % (Auto) [place] % (Auto) Lymph # (Auto) [place] # (Auto) Seg Neutrophils % Seg Neuts % (Manual) Lymphocytes % (Manual) Monocytes % (Manual) Seg Neutrophils # Seg Neutrophils # Man Lymphocytes # (Manual) Monocytes # (Manual) PT INR APTT Fibrinogen D-Dimer ABG pH POC ABG pCO2 POC ABG pO2 ABG pO2 ABG HCO3 ABG O2 Saturation ABG Base Excess ABG Hemoglobin ABG Oxyhemoglobin Oxyhemoglobin Sodium Potassium Chloride Carbon Dioxide BUN Creatinine Glucose POC Glucose 121 H 164 H 166 H Lactic Acid Calcium Phosphorus Magnesium AST ALT Alkaline Phosphatase C-Reactive Protein Total Protein Albumin Triglycerides Ur Specific [place] Urine Creatinine Crossmatch 06/28/21 06/28/21 06/29/21 18:14 21:54 00:55 WBC RBC Hgb Hct MCV MCH RDW Plt Count Lymph % (Auto) [place] % (Auto) Lymph # (Auto) [place] # (Auto) Seg Neutrophils % Seg Neuts % (Manual) Lymphocytes % (Manual) Monocytes % (Manual) Seg Neutrophils # Seg Neutrophils # Man Lymphocytes # (Manual) Monocytes # (Manual) PT INR APTT Fibrinogen D-Dimer ABG pH POC ABG pCO2 POC ABG pO2 ABG pO2 ABG HCO3 ABG O2 Saturation ABG Base Excess ABG Hemoglobin ABG Oxyhemoglobin Oxyhemoglobin Sodium Potassium Chloride Carbon Dioxide BUN Creatinine Glucose POC Glucose 150 H 148 H 176 H Lactic Acid Calcium Phosphorus Magnesium AST ALT Alkaline Phosphatase C-Reactive Protein Total Protein Albumin Triglycerides Ur Specific [place] Urine Creatinine Crossmatch 06/29/21 06/29/21 06/29/21 04:00 04:00 05:20 WBC 15.3 H RBC 3.04 L Hgb 8.0 L Hct 25.0 L MCV MCH 26 L RDW 22.3 H Plt Count Lymph % (Auto) [place] % (Auto) Lymph # (Auto) [place] # (Auto) Seg Neutrophils % Seg Neuts % (Manual) Lymphocytes % (Manual) Monocytes % (Manual) Seg Neutrophils # Seg Neutrophils # Man Lymphocytes # (Manual) Monocytes # (Manual) PT INR APTT Fibrinogen D-Dimer ABG pH POC ABG pCO2 POC ABG pO2 ABG pO2 ABG HCO3 ABG O2 Saturation ABG Base Excess ABG Hemoglobin ABG Oxyhemoglobin Oxyhemoglobin Sodium Potassium 3.1 L Chloride 108.7 H Carbon Dioxide BUN 20 H Creatinine Glucose 194 H POC Glucose 185 H Lactic Acid Calcium 8.0 L Phosphorus Magnesium AST ALT Alkaline Phosphatase C-Reactive Protein Total Protein Albumin Triglycerides Ur Specific [place] Urine Creatinine Crossmatch 06/29/21 06/29/21 06/30/21 12:18 17:20 00:49 WBC RBC Hgb Hct MCV MCH RDW Plt Count Lymph % (Auto) [place] % (Auto) Lymph # (Auto) [place] # (Auto) Seg Neutrophils % Seg Neuts % (Manual) Lymphocytes % (Manual) Monocytes % (Manual) Seg Neutrophils # Seg Neutrophils # Man Lymphocytes # (Manual) Monocytes # (Manual) PT INR APTT Fibrinogen D-Dimer ABG pH POC ABG pCO2 POC ABG pO2 ABG pO2 ABG HCO3 ABG O2 Saturation ABG Base Excess ABG Hemoglobin ABG Oxyhemoglobin Oxyhemoglobin Sodium Potassium Chloride Carbon Dioxide BUN Creatinine Glucose POC Glucose 135 H 185 H 156 H Lactic Acid Calcium Phosphorus Magnesium AST ALT Alkaline Phosphatase C-Reactive Protein Total Protein Albumin Triglycerides Ur Specific [place] Urine Creatinine Crossmatch 06/30/21 06/30/21 06/30/21 04:25 04:25 08:14 WBC 13.0 H RBC 3.19 L Hgb 8.2 L Hct 26.2 L MCV MCH 26 L RDW 22.3 H Plt Count Lymph % (Auto) [place] % (Auto) Lymph # (Auto) [place] # (Auto) Seg Neutrophils % Seg Neuts % (Manual) 81.0 H Lymphocytes % (Manual) 10.0 L Monocytes % (Manual) 8.0 H Seg Neutrophils # Seg Neutrophils # Man 10.5 H Lymphocytes # (Manual) Monocytes # (Manual) 1.0 H PT INR APTT Fibrinogen D-Dimer ABG pH POC ABG pCO2 POC ABG pO2 ABG pO2 ABG HCO3 ABG O2 Saturation ABG Base Excess ABG Hemoglobin ABG Oxyhemoglobin Oxyhemoglobin Sodium Potassium 3.0 L Chloride Carbon Dioxide BUN 20 H Creatinine Glucose 104 H POC Glucose 119 H Lactic Acid Calcium 8.3 L Phosphorus Magnesium AST ALT Alkaline Phosphatase C-Reactive Protein Total Protein Albumin Triglycerides Ur Specific [place] Urine Creatinine Crossmatch 06/30/21 06/30/21 06/30/21 11:36 16:24 22:44 WBC RBC Hgb Hct MCV MCH RDW Plt Count Lymph % (Auto) [place] % (Auto) Lymph # (Auto) [place] # (Auto) Seg Neutrophils % Seg Neuts % (Manual) Lymphocytes % (Manual) Monocytes % (Manual) Seg Neutrophils # Seg Neutrophils # Man Lymphocytes # (Manual) Monocytes # (Manual) PT INR APTT Fibrinogen D-Dimer ABG pH POC ABG pCO2 POC ABG pO2 ABG pO2 ABG HCO3 ABG O2 Saturation ABG Base Excess ABG Hemoglobin ABG Oxyhemoglobin Oxyhemoglobin Sodium Potassium Chloride Carbon Dioxide BUN Creatinine Glucose POC Glucose 154 H 208 H 174 H Lactic Acid Calcium Phosphorus Magnesium AST ALT Alkaline Phosphatase C-Reactive Protein Total Protein Albumin Triglycerides Ur Specific [place] Urine Creatinine Crossmatch 07/01/21 07/01/21 07/01/21 05:29 05:29 05:54 WBC 11.9 H RBC 3.00 L Hgb 8.1 L Hct 24.4 L MCV MCH 27 L RDW 21.7 H Plt Count Lymph % (Auto) [place] % (Auto) Lymph # (Auto) [place] # (Auto) Seg Neutrophils % Seg Neuts % (Manual) Lymphocytes % (Manual) Monocytes % (Manual) Seg Neutrophils # Seg Neutrophils # Man Lymphocytes # (Manual) Monocytes # (Manual) PT INR APTT Fibrinogen D-Dimer ABG pH POC ABG pCO2 POC ABG pO2 ABG pO2 ABG HCO3 ABG O2 Saturation ABG Base Excess ABG Hemoglobin ABG Oxyhemoglobin Oxyhemoglobin Sodium Potassium Chloride Carbon Dioxide BUN Creatinine Glucose 177 H POC Glucose 170 H Lactic Acid Calcium Phosphorus Magnesium AST ALT Alkaline Phosphatase C-Reactive Protein Total Protein Albumin Triglycerides Ur Specific [place] Urine Creatinine Crossmatch 07/01/21 07/02/21 07/02/21 10:54 05:05 10:18 WBC RBC Hgb Hct MCV MCH RDW Plt Count Lymph % (Auto) [place] % (Auto) Lymph # (Auto) [place] # (Auto) Seg Neutrophils % Seg Neuts % (Manual) Lymphocytes % (Manual) Monocytes % (Manual) Seg Neutrophils # Seg Neutrophils # Man Lymphocytes # (Manual) Monocytes # (Manual) PT INR APTT Fibrinogen D-Dimer ABG pH 7.488 H POC ABG pCO2 POC ABG pO2 ABG pO2 97.2 H ABG HCO3 27.1 H ABG O2 Saturation ABG Base Excess 3.5 H ABG Hemoglobin 7.9 L ABG Oxyhemoglobin Oxyhemoglobin Sodium Potassium Chloride Carbon Dioxide BUN Creatinine Glucose POC Glucose 184 H 182 H Lactic Acid Calcium Phosphorus Magnesium AST ALT Alkaline Phosphatase C-Reactive Protein Total Protein Albumin Triglycerides Ur Specific [place] Urine Creatinine Crossmatch 07/02/21 07/02/21 07/02/21 12:14 16:18 22:27 WBC RBC Hgb Hct MCV MCH RDW Plt Count Lymph % (Auto) [place] % (Auto) Lymph # (Auto) [place] # (Auto) Seg Neutrophils % Seg Neuts % (Manual) Lymphocytes % (Manual) Monocytes % (Manual) Seg Neutrophils # Seg Neutrophils # Man Lymphocytes # (Manual) Monocytes # (Manual) PT INR APTT Fibrinogen D-Dimer ABG pH 7.199 L* POC ABG pCO2 POC ABG pO2 ABG pO2 104.5 H ABG HCO3 30.3 H ABG O2 Saturation ABG Base Excess ABG Hemoglobin 9.8 L ABG Oxyhemoglobin Oxyhemoglobin 94.6 L Sodium Potassium Chloride Carbon Dioxide BUN Creatinine Glucose POC Glucose 184 H 194 H Lactic Acid Calcium Phosphorus Magnesium AST ALT Alkaline Phosphatase C-Reactive Protein Total Protein Albumin Triglycerides Ur Specific [place] Urine Creatinine Crossmatch 07/03/21 07/03/21 07/03/21 09:47 10:44 11:24 WBC RBC 3.01 L Hgb 8.3 L Hct 24.3 L MCV MCH RDW 21.7 H Plt Count Lymph % (Auto) 8.4 L [place] % (Auto) Lymph # (Auto) 0.8 L [place] # (Auto) Seg Neutrophils % 80.6 H Seg Neuts % (Manual) Lymphocytes % (Manual) Monocytes % (Manual) Seg Neutrophils # Seg Neutrophils # Man Lymphocytes # (Manual) Monocytes # (Manual) PT INR APTT Fibrinogen D-Dimer ABG pH POC ABG pCO2 POC ABG pO2 ABG pO2 ABG HCO3 ABG O2 Saturation ABG Base Excess ABG Hemoglobin ABG Oxyhemoglobin Oxyhemoglobin Sodium Potassium 3.0 L Chloride Carbon Dioxide BUN Creatinine Glucose 200 H POC Glucose 180 H Lactic Acid Calcium 8.3 L Phosphorus Magnesium AST ALT Alkaline Phosphatase C-Reactive Protein Total Protein Albumin Triglycerides Ur Specific [place] Urine Creatinine Crossmatch 07/03/21 07/03/21 07/03/21 16:34 22:14 22:15 WBC RBC Hgb Hct MCV MCH RDW Plt Count Lymph % (Auto) [place] % (Auto) Lymph # (Auto) [place] # (Auto) Seg Neutrophils % Seg Neuts % (Manual) Lymphocytes % (Manual) Monocytes % (Manual) Seg Neutrophils # Seg Neutrophils # Man Lymphocytes # (Manual) Monocytes # (Manual) PT INR APTT Fibrinogen D-Dimer ABG pH POC ABG pCO2 POC ABG pO2 ABG pO2 ABG HCO3 ABG O2 Saturation ABG Base Excess ABG Hemoglobin ABG Oxyhemoglobin Oxyhemoglobin Sodium Potassium Chloride Carbon Dioxide BUN Creatinine Glucose POC Glucose 165 H 174 H 180 H Lactic Acid Calcium Phosphorus Magnesium AST ALT Alkaline Phosphatase C-Reactive Protein Total Protein Albumin Triglycerides Ur Specific [place] Urine Creatinine Crossmatch 07/04/21 07/04/21 07/04/21 00:28 01:44 05:07 WBC RBC Hgb Hct MCV MCH RDW Plt Count Lymph % (Auto) [place] % (Auto) Lymph # (Auto) [place] # (Auto) Seg Neutrophils % Seg Neuts % (Manual) Lymphocytes % (Manual) Monocytes % (Manual) Seg Neutrophils # Seg Neutrophils # Man Lymphocytes # (Manual) Monocytes # (Manual) PT INR APTT Fibrinogen D-Dimer ABG pH POC ABG pCO2 POC ABG pO2 ABG pO2 107.7 H ABG HCO3 26.7 H ABG O2 Saturation ABG Base Excess ABG Hemoglobin 7.5 L ABG Oxyhemoglobin Oxyhemoglobin Sodium Potassium Chloride Carbon Dioxide BUN Creatinine Glucose POC Glucose 246 H 179 H Lactic Acid Calcium Phosphorus Magnesium AST ALT Alkaline Phosphatase C-Reactive Protein Total Protein Albumin Triglycerides Ur Specific [place] Urine Creatinine Crossmatch 07/04/21 07/04/21 07/04/21 05:13 05:13 10:52 WBC RBC 3.12 L Hgb 8.5 L Hct 25.2 L MCV MCH 27 L RDW 21.3 H Plt Count Lymph % (Auto) 6.1 L [place] % (Auto) Lymph # (Auto) 0.6 L [place] # (Auto) Seg Neutrophils % 85.0 H Seg Neuts % (Manual) Lymphocytes % (Manual) Monocytes % (Manual) Seg Neutrophils # 8.0 H Seg Neutrophils # Man Lymphocytes # (Manual) Monocytes # (Manual) PT INR APTT Fibrinogen D-Dimer ABG pH POC ABG pCO2 POC ABG pO2 ABG pO2 ABG HCO3 ABG O2 Saturation ABG Base Excess ABG Hemoglobin ABG Oxyhemoglobin Oxyhemoglobin Sodium Potassium 3.4 L Chloride Carbon Dioxide BUN Creatinine Glucose 205 H POC Glucose 146 H Lactic Acid Calcium Phosphorus Magnesium AST ALT Alkaline Phosphatase C-Reactive Protein Total Protein Albumin Triglycerides Ur Specific [place] Urine Creatinine Crossmatch 07/04/21 07/04/21 07/05/21 16:22 23:52 04:38 WBC RBC Hgb Hct MCV MCH RDW Plt Count Lymph % (Auto) [place] % (Auto) Lymph # (Auto) [place] # (Auto) Seg Neutrophils % Seg Neuts % (Manual) Lymphocytes % (Manual) Monocytes % (Manual) Seg Neutrophils # Seg Neutrophils # Man Lymphocytes # (Manual) Monocytes # (Manual) PT INR APTT Fibrinogen D-Dimer ABG pH POC ABG pCO2 POC ABG pO2 ABG pO2 ABG HCO3 ABG O2 Saturation ABG Base Excess ABG Hemoglobin ABG Oxyhemoglobin Oxyhemoglobin Sodium Potassium 3.0 L Chloride Carbon Dioxide BUN 18 H Creatinine Glucose 174 H POC Glucose 154 H 193 H Lactic Acid Calcium Phosphorus 2.20 L Magnesium AST ALT Alkaline Phosphatase C-Reactive Protein Total Protein Albumin Triglycerides Ur Specific [place] Urine Creatinine Crossmatch 07/05/21 07/05/21 07/05/21 04:38 05:15 12:35 WBC RBC 2.95 L Hgb 7.8 L Hct 23.9 L MCV MCH 27 L RDW 21.0 H Plt Count Lymph % (Auto) [place] % (Auto) Lymph # (Auto) [place] # (Auto) Seg Neutrophils % Seg Neuts % (Manual) Lymphocytes % (Manual) Monocytes % (Manual) Seg Neutrophils # Seg Neutrophils # Man Lymphocytes # (Manual) Monocytes # (Manual) PT INR APTT Fibrinogen D-Dimer ABG pH POC ABG pCO2 POC ABG pO2 ABG pO2 ABG HCO3 ABG O2 Saturation ABG Base Excess ABG Hemoglobin ABG Oxyhemoglobin Oxyhemoglobin Sodium Potassium Chloride Carbon Dioxide BUN Creatinine Glucose POC Glucose 163 H 121 H Lactic Acid Calcium Phosphorus Magnesium AST ALT Alkaline Phosphatase C-Reactive Protein Total Protein Albumin Triglycerides Ur Specific [place] Urine Creatinine Crossmatch 07/05/21 07/05/21 07/05/21 18:27 21:05 23:11 WBC RBC Hgb Hct MCV MCH RDW Plt Count Lymph % (Auto) [place] % (Auto) Lymph # (Auto) [place] # (Auto) Seg Neutrophils % Seg Neuts % (Manual) Lymphocytes % (Manual) Monocytes % (Manual) Seg Neutrophils # Seg Neutrophils # Man Lymphocytes # (Manual) Monocytes # (Manual) PT INR APTT Fibrinogen D-Dimer ABG pH POC ABG pCO2 POC ABG pO2 ABG pO2 ABG HCO3 ABG O2 Saturation ABG Base Excess ABG Hemoglobin ABG Oxyhemoglobin Oxyhemoglobin Sodium Potassium Chloride Carbon Dioxide BUN Creatinine Glucose POC Glucose 183 H 170 H 184 H Lactic Acid Calcium Phosphorus Magnesium AST ALT Alkaline Phosphatase C-Reactive Protein Total Protein Albumin Triglycerides Ur Specific [place] Urine Creatinine Crossmatch 07/06/21 07/06/21 07/06/21 04:39 05:13 12:12 WBC RBC Hgb Hct MCV MCH RDW Plt Count Lymph % (Auto) [place] % (Auto) Lymph # (Auto) [place] # (Auto) Seg Neutrophils % Seg Neuts % (Manual) Lymphocytes % (Manual) Monocytes % (Manual) Seg Neutrophils # Seg Neutrophils # Man Lymphocytes # (Manual) Monocytes # (Manual) PT INR APTT Fibrinogen D-Dimer ABG pH POC ABG pCO2 POC ABG pO2 ABG pO2 ABG HCO3 ABG O2 Saturation ABG Base Excess ABG Hemoglobin ABG Oxyhemoglobin Oxyhemoglobin Sodium Potassium 3.4 L Chloride Carbon Dioxide BUN Creatinine Glucose 180 H POC Glucose 183 H 153 H Lactic Acid Calcium Phosphorus Magnesium AST ALT Alkaline Phosphatase C-Reactive Protein Total Protein Albumin Triglycerides Ur Specific [place] Urine Creatinine Crossmatch 07/06/21 07/06/21 07/07/21 17:30 21:44 00:22 WBC RBC Hgb Hct MCV MCH RDW Plt Count Lymph % (Auto) [place] % (Auto) Lymph # (Auto) [place] # (Auto) Seg Neutrophils % Seg Neuts % (Manual) Lymphocytes % (Manual) Monocytes % (Manual) Seg Neutrophils # Seg Neutrophils # Man Lymphocytes # (Manual) Monocytes # (Manual) PT INR APTT Fibrinogen D-Dimer ABG pH POC ABG pCO2 POC ABG pO2 ABG pO2 ABG HCO3 ABG O2 Saturation ABG Base Excess ABG Hemoglobin ABG Oxyhemoglobin Oxyhemoglobin Sodium Potassium Chloride Carbon Dioxide BUN Creatinine Glucose POC Glucose 166 H 155 H 188 H Lactic Acid Calcium Phosphorus Magnesium AST ALT Alkaline Phosphatase C-Reactive Protein Total Protein Albumin Triglycerides Ur Specific [place] Urine Creatinine Crossmatch 07/07/21 07/07/21 07/07/21 04:10 05:48 07:39 WBC RBC Hgb Hct MCV MCH RDW Plt Count Lymph % (Auto) [place] % (Auto) Lymph # (Auto) [place] # (Auto) Seg Neutrophils % Seg Neuts % (Manual) Lymphocytes % (Manual) Monocytes % (Manual) Seg Neutrophils # Seg Neutrophils # Man Lymphocytes # (Manual) Monocytes # (Manual) PT INR APTT Fibrinogen D-Dimer ABG pH POC ABG pCO2 POC ABG pO2 ABG pO2 ABG HCO3 ABG O2 Saturation ABG Base Excess ABG Hemoglobin ABG Oxyhemoglobin Oxyhemoglobin Sodium Potassium 3.1 L Chloride Carbon Dioxide BUN Creatinine Glucose 138 H POC Glucose 141 H 147 H Lactic Acid Calcium Phosphorus 2.40 L Magnesium AST ALT Alkaline Phosphatase C-Reactive Protein Total Protein Albumin Triglycerides Ur Specific [place] Urine Creatinine Crossmatch 07/07/21 07/07/21 07/07/21 11:17 16:06 23:58 WBC RBC Hgb Hct MCV MCH RDW Plt Count Lymph % (Auto) [place] % (Auto) Lymph # (Auto) [place] # (Auto) Seg Neutrophils % Seg Neuts % (Manual) Lymphocytes % (Manual) Monocytes % (Manual) Seg Neutrophils # Seg Neutrophils # Man Lymphocytes # (Manual) Monocytes # (Manual) PT INR APTT Fibrinogen D-Dimer ABG pH POC ABG pCO2 POC ABG pO2 ABG pO2 ABG HCO3 ABG O2 Saturation ABG Base Excess ABG Hemoglobin ABG Oxyhemoglobin Oxyhemoglobin Sodium Potassium Chloride Carbon Dioxide BUN Creatinine Glucose POC Glucose 161 H 173 H 198 H Lactic Acid Calcium Phosphorus Magnesium AST ALT Alkaline Phosphatase C-Reactive Protein Total Protein Albumin Triglycerides Ur Specific [place] Urine Creatinine Crossmatch 07/08/21 07/08/21 07/08/21 04:20 04:20 06:12 WBC RBC 3.16 L Hgb 8.3 L Hct 25.1 L MCV MCH 26 L RDW 21.0 H Plt Count Lymph % (Auto) [place] % (Auto) Lymph # (Auto) [place] # (Auto) Seg Neutrophils % Seg Neuts % (Manual) Lymphocytes % (Manual) Monocytes % (Manual) Seg Neutrophils # Seg Neutrophils # Man Lymphocytes # (Manual) Monocytes # (Manual) PT INR APTT Fibrinogen D-Dimer ABG pH POC ABG pCO2 POC ABG pO2 ABG pO2 ABG HCO3 ABG O2 Saturation ABG Base Excess ABG Hemoglobin ABG Oxyhemoglobin Oxyhemoglobin Sodium Potassium Chloride Carbon Dioxide BUN Creatinine Glucose 183 H POC Glucose 189 H Lactic Acid Calcium Phosphorus Magnesium AST ALT Alkaline Phosphatase C-Reactive Protein Total Protein Albumin Triglycerides Ur Specific [place] Urine Creatinine Crossmatch 07/08/21 07/08/21 07/08/21 11:33 18:04 21:42 WBC RBC Hgb Hct MCV MCH RDW Plt Count Lymph % (Auto) [place] % (Auto) Lymph # (Auto) [place] # (Auto) Seg Neutrophils % Seg Neuts % (Manual) Lymphocytes % (Manual) Monocytes % (Manual) Seg Neutrophils # Seg Neutrophils # Man Lymphocytes # (Manual) Monocytes # (Manual) PT INR APTT Fibrinogen D-Dimer ABG pH POC ABG pCO2 POC ABG pO2 ABG pO2 ABG HCO3 ABG O2 Saturation ABG Base Excess ABG Hemoglobin ABG Oxyhemoglobin Oxyhemoglobin Sodium Potassium Chloride Carbon Dioxide BUN Creatinine Glucose POC Glucose 161 H 128 H 160 H Lactic Acid Calcium Phosphorus Magnesium AST ALT Alkaline Phosphatase C-Reactive Protein Total Protein Albumin Triglycerides Ur Specific [place] Urine Creatinine Crossmatch 07/09/21 07/09/21 07/09/21 06:03 06:10 06:10 WBC RBC 2.96 L Hgb 7.8 L Hct 23.5 L MCV MCH 27 L RDW 20.9 H Plt Count Lymph % (Auto) [place] % (Auto) Lymph # (Auto) [place] # (Auto) Seg Neutrophils % Seg Neuts % (Manual) Lymphocytes % (Manual) Monocytes % (Manual) Seg Neutrophils # Seg Neutrophils # Man Lymphocytes # (Manual) Monocytes # (Manual) PT INR APTT Fibrinogen D-Dimer ABG pH POC ABG pCO2 POC ABG pO2 ABG pO2 ABG HCO3 ABG O2 Saturation ABG Base Excess ABG Hemoglobin ABG Oxyhemoglobin Oxyhemoglobin Sodium Potassium Chloride Carbon Dioxide BUN Creatinine Glucose 168 H POC Glucose 174 H Lactic Acid Calcium 8.2 L Phosphorus Magnesium AST ALT Alkaline Phosphatase C-Reactive Protein Total Protein Albumin Triglycerides Ur Specific [place] Urine Creatinine Crossmatch 07/09/21 07/09/21 07/09/21 11:45 18:45 21:33 WBC RBC Hgb Hct MCV MCH RDW Plt Count Lymph % (Auto) [place] % (Auto) Lymph # (Auto) [place] # (Auto) Seg Neutrophils % Seg Neuts % (Manual) Lymphocytes % (Manual) Monocytes % (Manual) Seg Neutrophils # Seg Neutrophils # Man Lymphocytes # (Manual) Monocytes # (Manual) PT INR APTT Fibrinogen D-Dimer ABG pH POC ABG pCO2 POC ABG pO2 ABG pO2 ABG HCO3 ABG O2 Saturation ABG Base Excess ABG Hemoglobin ABG Oxyhemoglobin Oxyhemoglobin Sodium Potassium Chloride Carbon Dioxide BUN Creatinine Glucose POC Glucose 148 H 187 H 156 H Lactic Acid Calcium Phosphorus Magnesium AST ALT Alkaline Phosphatase C-Reactive Protein Total Protein Albumin Triglycerides Ur Specific [place] Urine Creatinine Crossmatch 07/10/21 07/10/21 07/10/21 00:01 05:24 11:12 WBC RBC Hgb Hct MCV MCH RDW Plt Count Lymph % (Auto) [place] % (Auto) Lymph # (Auto) [place] # (Auto) Seg Neutrophils % Seg Neuts % (Manual) Lymphocytes % (Manual) Monocytes % (Manual) Seg Neutrophils # Seg Neutrophils # Man Lymphocytes # (Manual) Monocytes # (Manual) PT INR APTT Fibrinogen D-Dimer ABG pH POC ABG pCO2 POC ABG pO2 ABG pO2 ABG HCO3 ABG O2 Saturation ABG Base Excess ABG Hemoglobin ABG Oxyhemoglobin Oxyhemoglobin Sodium Potassium Chloride Carbon Dioxide BUN Creatinine Glucose POC Glucose 191 H 203 H 174 H Lactic Acid Calcium Phosphorus Magnesium AST ALT Alkaline Phosphatase C-Reactive Protein Total Protein Albumin Triglycerides Ur Specific [place] Urine Creatinine Crossmatch
[2021-07-10] MEDS: FUROSEMIDE 40 MG/4 ML INJ IV SCH ×2 (14:54→19:13)
--- NOTE | 2021-07-10 15:49 | Cat Scan Report ---
CT HEAD WITHOUT CONTRAST INDICATION : weakness. TECHNIQUE: Axial imaging performed from the skull apex through the skull base without the use of con trast. Sagittal and coronal reformatted images. All CT scans at this location are performed using C T dose reduction for ALARA by means of automated exposure control. COMPARISON: 07/03/2020. FINDINGS: Parenchyma: Slightly limited exam by motion artifact. No acute parenchymal abnormality is detected. Mild diffuse cortical volume loss and chronic white matter changes are stable and appear appropriate for this person's age. Stable bilateral basal ganglia calcifications. Ventricles: Ventricles are normal in size and appear symmetric. Bones: No acute osseous abnormality. Sinuses: 2 cm mucous retention cyst in the right maxillary sinus is unchanged. Otherwise the sinuses are clear. Soft tissues: Soft tissues including the orbits appear normal. IMPRESSION: No acute abnormality. No change since 07/03/2020. Signer Name: Ghanshyam De Luna Jr, MD Signed: 07/10/2021 3:45 PM Workstation Name: [id number]
--- NOTE | 2021-07-10 16:33 | Progress Note ---
Assessment and Plan Cultures: 06/12/2021 blood cultures: no growth A/P: 76-year-old female with diabetes, hypertension, gout was admitted to the hospital on 06/11/2021 with swelling of the submandibular region, tongue and difficulty breathing, labs also revealed severe coagulopathy due to Coumadin. 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 Shock resolved. s/p tracheostomy and PEG tube placement 06/19/2021. #Acute respiratory failure: s/p trach #Right-sided pneumothorax: s/p chest tube. #Diabetes mellitus, uncontrolled #Coagulopathy: Secondary to Coumadin. #Acute blood loss anemia Recs: -Completed Zosyn -Pending placement Sinai Small MD [facility] ([facility]) O: [phone] F: [phone] Subjective Date of service: 07/10/21 Interval history: Afebrile, normal white count. Imaging personally reviewed: CT head: No abnormality Objective - Exam Narrative Exam: Physical Exam: Constitutional: Awake, on T-piece Head, Ears, Nose: Normocephalic, atraumatic. External ears, nose normal Eyes: Conjunctivae/corneas clear. No icterus. No ptosis. Oral: trach Cardiovascular: S1, S2 + Respiratory: AE reduced, right-sided chest tube. GI: Soft, bowel sounds +, PEG + Musculoskeletal: No pedal edema, no cyanosis. Skin: No rash or abscess Hem/Lymphatic: No palpable cervical or supraclavicular nodes. No lymphangitis Psych: no agitation Neurological: on t-piece examined. - Constitutional Vitals: Vital Signs Temp Pulse Resp BP Pulse Ox 98.8 F 96 H 30 H 142/77 93 07/10/21 13:06 07/10/21 15:00 07/10/21 15:00 07/10/21 15:00 07/10/21 15:00 Temperature -Last 24 Hours Temperature 98.8 F Temperature 99.7 F Temperature 98.4 F Temperature 98.8 F Temperature 98.8 F Temperature 100.2 F - Labs CBC & Chem 7: 07/09/21 06:10 07/09/21 06:10 Labs: Abnormal lab results 07/09/21 07/09/21 07/10/21 Range/Units 18:45 21:33 00:01 POC Glucose 187 H 156 H 191 H (70-105) mg/dL 07/10/21 07/10/21 07/10/21 Range/Units 05:24 11:12 15:56 POC Glucose 203 H 174 H 182 H (70-105) mg/dL
[2021-07-10] MEDS: traZODone 50 MG TAB PO SCH (21:07)
[2021-07-10] MEDS: INSULIN GLARGINE 100 UNITS/ML SUB-Q SCH (21:08)
[2021-07-10] MEDS: ENOXAPARIN 40 MG/0.4 ML INJ SUB-Q SCH (21:08)
[2021-07-10] MEDS: MELATONIN 5 MG TAB PO SCH (21:08)
[2021-07-11] MEDS: INSULIN LISPRO 100 UNIT/ML SUB-Q SCH ×4 (00:59→17:42)
[2021-07-11 04:37] LABS: Hematocrit 27.6 % (30.3-42.9); Hemoglobin 8.7 gm/dl (10.1-14.3); Mean Corpuscular HGB Conc 32 % (30-34); Mean Corpuscular Volume 79 fl (79-97); Platelet Count 355 K/mm3 (140-440)
[2021-07-11 04:39] LABS: Red Cell Distribution Width 20.6 % (13.2-15.2)
[2021-07-11 04:55] LABS: Blood Urea Nitrogen 15 mg/dL (7-17); Calcium 8.5 mg/dL (8.4-10.2); Hemolysis Index 1
[2021-07-11 05:21] LABS: BUN/Creatinine Ratio 21
--- NOTE | 2021-07-11 05:34 | XRay Report ---
CHEST 1 VIEW INDICATION / CLINICAL INFORMATION: pulmonary edema.. COMPARISON: Chest x-ray 07/03/2021 FINDINGS: SUPPORT DEVICES: Tracheostomy tube and right-sided PICC appears stable although the tip of the PICC i s partially obscured from overlying wires. HEART / MEDIASTINUM: No significant interval change. LUNGS / PLEURA: Right pleural effusion increased in size since comparison. Lungs demonstrate little c hange. No pneumothorax. ADDITIONAL FINDINGS: No significant additional findings. IMPRESSION: 1. Interval increase in size of right pleural effusion. Signer Name: Raza Alfonso II, MD Signed: 07/11/2021 5:29 AM Workstation Name: [id number]
[2021-07-11 06:10] LABS: Band Neutrophils # (Manual) 0.2 K/mm3; Myelocytes # (Manual) 0.1 K/mm3; Total Cells Counted 100
[2021-07-11 06:11] LABS: Anisocytosis 2+; Hypochromasia 2+; Platelet Estimate Consistent w Auto
[2021-07-11 06:12] LABS: Ovalocytes 1+; Spherocytes 1+; Target Cells 2+; Tear Drop Cells 1+
[2021-07-11 06:13] LABS: Schistocytes Rare
[2021-07-11] MEDS: hydrALAZINE 100 MG TAB FEEDTUBE SCH ×3 (06:29→21:36)
[2021-07-11] MEDS: FUROSEMIDE 40 MG/4 ML INJ IV SCH ×2 (06:29→17:42)
[2021-07-11] MEDS: GABAPENTIN 100 MG CAP PO SCH ×3 (08:31→21:36)
--- NOTE | 2021-07-11 08:34 | Progress Note ---
Assessment and Plan Assessment and plan: Hospital Course: 07/01: Transfer from ICU on 06/30. Patient was stable with a trach and T-piece on 5 L. Tolerating tube feeds. 07/02: Patient remains on T-piece with trach in place. On 5 L of O2. She is alert and responds appropriately but not well due to trach tube. Tolerating tube feeds. Appears comfortable. No complaints. No new events reported. Case management reports patient with plans for LTAC placement. 07/03: Patient remains on T-piece with trach in place. On 5 L of O2. Patient tolerating tube feeds. We will check CT of head, neck and chest per pulmonary and general surgery recommendations based on CBC this morning. If leukocytosis persists we will proceed with studies. Patient remains afebrile today. 07/04: s/p X1 dose of IV lasix, patient is now stable on the T-piece via trach at 28% and 5L. Patient remains afebrile, leukocytosis improved, and CXR wiht no significant change. PRN [place] added for pain management. Electrolytes repleted 07/05: Remains stable on T-piece. Complaint of lack of sleep and tiredness this am, Trazadone and melatonin added for sleep. Continue PT- increase mobility and possibly OOB to chair today. Continue pain management. Electrolytes repleted. 07/06: Rested overnight. And continue to tolerate T-piece at 28% and 5L. Continue trazadone and melatonin at night for sleep and pain control with PRN analgesia. Discussed possibility of down sizing the trach to an 8 Shiley with General Surgery. Per Surgery downsizing would not be easy nor safe at this time. Plan to order #10 PSMV instead. Case management to arrange possible placement SNF vs subacute rehab. 07/07: JEREMIAS overnight. New report of BLE pain and swelling, per patient was on gabapentin and smooth muscle relaxers at home. BLE did appear swollen with palpable pedal pulses. Will get BLE doppler, resume gabapentin, and continue PRN analgesic for pain control. Continue mobility/strenght and conditioning with PT. Electrolytes repleted, repeat labs in the am. 07/08: Patient scheduled to have a downsize of Shiley today in the OR with surgery, surgery also requested neurology consult for MS work-up. Lidocaine patches to bilateral lower extremities discontinued. 07/09: Transfer to [facility]. s/p trach downsize by surgery. Will need aggressive PT/OT/ST. Possible eval by ST for MPV. Placement now of concern. Will continue coordination with CM. Neuro: doubt MG. suspects myopathy likely ICU acquired from prolonged immobilization. Again she will require aggressive PT rehab. 07/10: Appears volume overloaded. Lasix 40 mg IV x 2 doses ordered. Will need continued aggressive PT. ST eval for PSMV (still has not arrived per notes). 07/11: CT brain negative. MRI appears to have been cancelled, unclear why. Nonetheless doubt primary neurological etiology for weakness...suspect ICU acquired weakness. Continue discharge planning, rehab/snf is likely disposition. Will continue to work along side CM. Assessment and plan: This is a 76-year-old female with HTN, Coumadin use, dental caries, PVD s/p stenting to right leg, DM, arthritis, depression, gout and ? Pulmonary hypertension admitted with Jeremiah's angina s/p emergent cric with bleeding, right sided pneumothorax, supratherapeutic INR, hypernatremia, hyperchloremia, severe metabolic acidosis, hyperglycemia and hypocalcemia Neuro: Acute pain, ICU acquired weakness/myopathy, r/o myasthenia gravis, h/o depression, arthritis -prn fent pushes -Avoid delirium -Reorientation as needed -Maintain sleep-wake cycle -PT consulted; recommends LTAC -Neurology consulted, appreciate recommendations -B12, A1c, CK, TSH pending -MRI brain to rule out bleeding and old watershed infarct -gabapentin Cardiac: S/p cardiac arrest, h/o htn, PVD s/p stenting Right leg -06/14 cardiac arrest with ROSC -S/p vasopressor support with Levophed and Fabian-Synephrine -Blood pressure monitoring per protocol -Antihypertensive regimen: Hydralazine 100 mg every 8 -06/13 Echocardiogram EF 65-70% Respiratory: Acute hypoxic respiratory failure, right pneumothorax -CCM consulted, appreciate recommendations -S/p emergent cricothyroidectomy with surgery with 8.00 ETT -s/p trach 06/19 with surgery s/p #10 Shiley -07/08 Shiley downsized to #8 -T-piece trials started 06/26 -ST: Unable to tolerate Passy-Ann valve on 06/28 but has since tolerated 10 min -misplaced PSMV during transport and awaiting replacement -s/p Right chest tube removed 06/29 -06/13 bronchoscopy showed possible blood clot in left lung which may be acting as mucous plug however it was left in place due to possible bleeding inside lung if removed. -CXR post cardiac arrest shows clearance of mucous plug -06/16 CT chest shows moderate right pneumothorax with collapse of right upper lobe, right thoracostomy tube terminates at the collapsed right upper lobe, bilateral bronchus opacities compatible with infectious/inflammatory etiology, bilateral small pleural effusion, extensive subcutaneous air, small fluid collection in the anterior mediastinum is nonspecific -VAP bundle -SPO2 monitoring GI: Protein calorie malnutrition -24 hours -1545 mL -PPI -BR: senna, colace -s/p TPN -Nutrition consult for tube feeding -S/p PEG : Urinary retention, acute kidney injury possibly secondary to vasomotor nephropathy (resolved) -Strict intake and output -Renally dose medications -Avoid nephrotoxic medications -Daily weights -Consider nephrology consult if worsens -S/p 7 L LR bolus -Replete potassium -Lujan catheter replaced due to urinary retention ID: 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 dental caries -CT neck with contrast showed a significant right floor of mild swelling with extension into the submandibular and submental spaces, significant thickening and inflammation involving the right pharyngeal wall, with the parapharyngeal and retropharyngeal spaces at the level of the thyroid cartilage, epiglottis significantly swollen and so are the aryepiglottic folds resulting in significant airway narrowing at this level, no lymphadenopathy, symmetric submandibular and parathyroid glands, S few scattered caries but no periapical lucencies, nonspecific calcification along the right lateral oropharynx, no definite stone seen within the territory of the submandibular gland ducts, no suspicious rashes lesion -Infectious disease and general surgery consulted, appreciate recommendations -s/p cricothyroidectomy -Will follow surgery to direction and treatment of injury -Per surgery may have mucosal injury -Intra-Op findings include post pharyngeal swelling and bruising -s/p Solu-Medrol -Per ID: if leucocytosis persists after being off steroids, obtain CT neck with IV contrast to rule out any abscess -Antibiotic therapy Zosyn x 21 days completed -COVID-19 PCR negative -f/u blood culture -Monitor WBC and temperature curve -s/p 5L normal saline bolus in ED, 7 L LR bolus in ICU Heme: Coagulopathy (resolved), supratherapeutic INR (resolved), acute blood loss anemia (resolved), possible component of hemorrhagic shock (resolved), leukocytosis (resolved) -Patient is on Coumadin at home -S/p 5 FFP, 8 PRBC, vitamin K x3 -Trend CBC -Presented with H/H of 10.3/34.6 and decreased to 6.7/22.4 -INR 8.18-> 4.55-> 2.1-> 1.23-> 1.16-> 1.31 -Transfuse hemoglobin less than 7 -Lovenox subq (prophylactic) -Monitor for signs of bleeding -SCDs to BLE while in bed Endo: h/o DM, gout -S/p Lantus 25 units x 1 -Lantus subcu, titrate as needed -Avoid hypoglycemia -SSI -Accu-Cheks q. 6hr The high probability of a clinically significant, sudden or life threatening det erioration of the [multi] system(s) required my full and direct attention, intervention and personal management. The aggregate critical care time was [60] minutes. This time is in addition to time spent performing reported procedures but includes the following: [x] Data Review and interpretation [x] Patient assessment and monitoring of vital signs [x] Documentation [x] Medication orders and management Disposition Plan: IMCU Total Time Spent with Patient (Minutes): 60 History Interval history: No acute complaints resting comfortably. Hospitalist Physical - Physical exam Narrative exam: - General Apperance Constitutional: comfortable - EENT EENT: PERRL, mucous membranes moist - Respiratory Respiratory: lungs clear, rhonchi - Cardiovascular Cardiovascular: regular rate, normal S1, normal S2 Extremities: no peripheral edema bilat, no clubbing, cyanosis - Gastrointestinal Gastrointestinal: normoactive bowel sounds - Integumentary Integumentary: normal - Neurologic Cranial nerve examination: PERRL, EOMI, intact Speech examination: other (tracheostomy tube, no aphasia) Detailed motor examination: other (Bilateral proximal motor weakness upper> Lower, suppressed reflexes, no cranial weakness is noted neck muscles are intact) Motor examination - right side: 05/08: biceps - Constitutional Vitals: Temp Pulse Resp BP Pulse Ox 99.3 F 98 H 13 140/70 100 07/11/21 07:14 07/11/21 06:00 07/11/21 06:00 07/11/21 06:00 07/11/21 06:00 General appearance: Present: no acute distress, obese (Morbidly obese), other (On T-piece with trach in place.) HEART Score - HEART Score Troponin: Troponin T < 0.010 ng/mL (0.00-0.029) 06/11/21 23:21 Results - Labs CBC & Chem 7: 07/11/21 04:04 07/11/21 04:04 Labs: Laboratory Last Values WBC 5.5 K/mm3 (4.5-11.0) 07/11/21 04:04 RBC 3.50 M/mm3 (3.65-5.03) L 07/11/21 04:04 Hgb 8.7 gm/dl (10.1-14.3) L 07/11/21 04:04 Hct 27.6 % (30.3-42.9) L 07/11/21 04:04 MCV 79 fl (79-97) 07/11/21 04:04 MCH 25 pg (28-32) L 07/11/21 04:04 MCHC 32 % (30-34) 07/11/21 04:04 RDW 20.6 % (13.2-15.2) H 07/11/21 04:04 Plt Count 355 K/mm3 (140-440) 07/11/21 04:04 Lymph % (Auto) 6.1 % (13.4-35.0) L 07/04/21 05:13 [place] % (Auto) Hammer Fitter 07/11/21 04:04 Eos % (Auto) 1.8 % (0.0-4.3) 07/04/21 05:13 Baso % (Auto) 0.5 % (0.0-1.8) 07/04/21 05:13 Lymph # (Auto) 0.6 K/mm3 (1.2-5.4) L 07/04/21 05:13 [place] # (Auto) 0.6 K/mm3 (0.0-0.8) 07/04/21 05:13 Eos # (Auto) 0.2 K/mm3 (0.0-0.4) 07/04/21 05:13 Baso # (Auto) 0.0 K/mm3 (0.0-0.1) 07/04/21 05:13 Add Manual Diff Complete 07/11/21 04:04 Total Counted 100 07/11/21 04:04 Seg Neutrophils % 85.0 % (40.0-70.0) H 07/04/21 05:13 Seg Neuts % (Manual) 66.0 % (40.0-70.0) 07/11/21 04:04 Band Neutrophils % 3.0 % 07/11/21 04:04 Lymphocytes % (Manual) 15.0 % (13.4-35.0) 07/11/21 04:04 Reactive Lymphs % (Man) 0 % 07/11/21 04:04 Monocytes % (Manual) 6.0 % (0.0-7.3) 07/11/21 04:04 Eosinophils % (Manual) 3.0 % (0.0-4.3) 07/11/21 04:04 Basophils % (Manual) 2.0 % (0.0-1.8) H 07/11/21 04:04 Metamyelocytes % 4.0 % 07/11/21 04:04 Myelocytes % 1.0 % 07/11/21 04:04 Promyelocytes % 0 % 07/11/21 04:04 Blast Cells % 0 % 07/11/21 04:04 Nucleated RBC % Not Reportable 07/11/21 04:04 Seg Neutrophils # 8.0 K/mm3 (1.8-7.7) H 07/04/21 05:13 Seg Neutrophils # Man 3.6 K/mm3 (1.8-7.7) 07/11/21 04:04 Band Neutrophils # 0.2 K/mm3 07/11/21 04:04 Lymphocytes # (Manual) 0.8 K/mm3 (1.2-5.4) L 07/11/21 04:04 Abs React Lymphs (Man) 0.0 K/mm3 07/11/21 04:04 Monocytes # (Manual) 0.3 K/mm3 (0.0-0.8) 07/11/21 04:04 Eosinophils # (Manual) 0.2 K/mm3 (0.0-0.4) 07/11/21 04:04 Basophils # (Manual) 0.1 K/mm3 (0.0-0.1) 07/11/21 04:04 Metamyelocytes # 0.2 K/mm3 07/11/21 04:04 Myelocytes # 0.1 K/mm3 07/11/21 04:04 Promyelocytes # 0.0 K/mm3 07/11/21 04:04 Blast Cells # 0.0 K/mm3 07/11/21 04:04 WBC Morphology Not Reportable 07/11/21 04:04 Hypersegmented Neuts Not Reportable 07/11/21 04:04 Hyposegmented Neuts Not Reportable 07/11/21 04:04 Hypogranular Neuts Not Reportable 07/11/21 04:04 Smudge Cells Not Reportable 07/11/21 04:04 Toxic Granulation Not Reportable 07/11/21 04:04 Toxic Vacuolation Not Reportable 07/11/21 04:04 Dohle Bodies Not Reportable 07/11/21 04:04 Pelger-Huet Anomaly Not Reportable 07/11/21 04:04 Dennis Rods Not Reportable 07/11/21 04:04 Platelet Estimate Consistent w auto 07/11/21 04:04 Clumped Platelets Not Reportable 07/11/21 04:04 Plt Clumps, EDTA Not Reportable 07/11/21 04:04 Large Platelets Not Reportable 07/11/21 04:04 Giant Platelets Not Reportable 07/11/21 04:04 Platelet Satelliting Not Reportable 07/11/21 04:04 Plt Morphology Comment Not Reportable 07/11/21 04:04 RBC Morphology Not Reportable 07/11/21 04:04 Dimorphic RBCs Not Reportable 07/11/21 04:04 Polychromasia Not Reportable 07/11/21 04:04 Hypochromasia 2+ 07/11/21 04:04 Poikilocytosis Not Reportable 07/11/21 04:04 Anisocytosis 2+ 07/11/21 04:04 Microcytosis Not Reportable 07/11/21 04:04 Macrocytosis Not Reportable 07/11/21 04:04 Spherocytes 1+ 07/11/21 04:04 Pappenheimer Bodies Not Reportable 07/11/21 04:04 Sickle Cells Not Reportable 07/11/21 04:04 Target Cells 2+ 07/11/21 04:04 Tear Drop Cells 1+ 07/11/21 04:04 Ovalocytes 1+ 07/11/21 04:04 Stomatocytes Few 06/12/21 01:45 Helmet Cells Not Reportable 07/11/21 04:04 [place] Bodies Not Reportable 07/11/21 04:04 [place] Rings Not Reportable 07/11/21 04:04 [place] Cells Not Reportable 07/11/21 04:04 Bite Cells Not Reportable 07/11/21 04:04 Crenated Cell Not Reportable 07/11/21 04:04 Elliptocytes Not Reportable 07/11/21 04:04 Acanthocytes (Spur) Not Reportable 07/11/21 04:04 Rouleaux Not Reportable 07/11/21 04:04 Hemoglobin C Crystals Not Reportable 07/11/21 04:04 Schistocytes Rare 07/11/21 04:04 Malaria parasites Not Reportable 07/11/21 04:04 Edin Bodies Not Reportable 07/11/21 04:04 Hem Pathologist Commnt No 07/11/21 04:04 PT 18.3 Sec. (12.2-14.9) H 06/20/21 04:33 INR 1.37 (0.87-1.13) H 06/20/21 04:33 APTT 26.4 Sec. (24.2-36.6) 06/13/21 Unknown Fibrinogen 546 mg/dl (211-480) H 06/13/21 Unknown D-Dimer 1244.63 ng/mlDDU (0-234) H 06/13/21 Unknown ABG pH 7.448 pH Units (7.350-7.450) 07/04/21 01:44 POC ABG pCO2 25.6 mmHg (32.0-48.0) L 06/13/21 04:31 ABG pCO2 39.5 mm Hg 07/04/21 01:44 POC ABG pO2 138.8 mmHg (83-108) H 06/13/21 04:31 ABG pO2 107.7 mm Hg (80.0-90.0) H 07/04/21 01:44 POC ABG HCO3 21.4 06/13/21 04:31 ABG HCO3 26.7 mmol/L (20.0-26.0) H 07/04/21 01:44 ABG O2 Saturation 98.0 % (95.0-99.0) 07/04/21 01:44 ABG O2 Content 10.3 (0.0-44) 07/04/21 01:44 POC ABG Base Excess -0.7 06/13/21 04:31 ABG Base Excess 2.5 mmol/L (-2.0-3.0) 07/04/21 01:44 ABG Hemoglobin 7.5 gm/dl (12.0-16.0) L 07/04/21 01:44 ABG Oxyhemoglobin 98.1 (94-98) H 06/13/21 04:31 ABG Carboxyhemoglobin 1.6 % (0.0-5.0) 07/04/21 01:44 ABG Methemoglobin 0.6 % (0.0-1.5) 07/04/21 01:44 Oxyhemoglobin 95.9 % (95.0-99.0) 07/04/21 01:44 Carboxyhemoglobin 0.8 (0.5-1.5) 06/13/21 04:31 FiO2 35 % 07/04/21 01:44 FiO2 % 40.0 06/13/21 04:31 Sodium 139 mmol/L (137-145) 07/11/21 04:04 Potassium 3.3 mmol/L (3.6-5.0) L 07/11/21 04:04 Chloride 99.7 mmol/L (98-107) 07/11/21 04:04 Carbon Dioxide 27 mmol/L (22-30) 07/11/21 04:04 Anion Gap 16 mmol/L 07/11/21 04:04 BUN 15 mg/dL (7-17) 07/11/21 04:04 Creatinine 0.7 mg/dL (0.6-1.2) 07/11/21 04:04 Estimated GFR > 60 ml/min 07/11/21 04:04 BUN/Creatinine Ratio 21 % 07/11/21 04:04 Glucose 199 mg/dL (65-100) H 07/11/21 04:04 POC Glucose 191 mg/dL (70-105) H 07/11/21 05:34 Lactic Acid 5.30 mmol/L (0.7-2.0) H* 06/13/21 15:45 Calcium 8.5 mg/dL (8.4-10.2) 07/11/21 04:04 Phosphorus 3.70 mg/dL (2.5-4.5) D 07/08/21 04:20 Magnesium 1.90 mg/dL (1.7-2.3) 07/08/21 04:20 Total Bilirubin 0.40 mg/dL (0.1-1.2) 06/15/21 03:56 AST 64 units/L (5-40) H 06/15/21 03:56 ALT 106 units/L (7-56) H 06/15/21 03:56 Alkaline Phosphatase 55 units/L (35-129) 06/15/21 03:56 Troponin T < 0.010 ng/mL (0.00-0.029) 06/11/21 23:21 C-Reactive Protein 3.30 mg/dL (0.00-1.30) H 06/16/21 04:32 Total Protein 5.1 g/dL (6.3-8.2) L 06/15/21 03:56 Albumin 2.9 g/dL (3.9-5) L 06/15/21 03:56 Albumin/Globulin Ratio 1.3 % 06/15/21 03:56 Triglycerides 254 mg/dL (2-149) H 06/21/21 04:42 Vitamin B12 647.0 pg/mL (211-911) 07/08/21 15:36 TSH 1.050 mlU/mL (0.270-4.200) 07/08/21 15:36 Urine Color Yellow (Yellow) 06/12/21 17:00 Urine Turbidity Clear (Clear) 06/12/21 17:00 Urine pH 5.0 (5.0-7.0) 06/12/21 17:00 Ur Specific [place] 1.035 (1.003-1.030) H 06/12/21 17:00 Urine Protein 30 mg/dl mg/dL (Negative) 06/12/21 17:00 Urine Glucose (UA) 50 mg/dL (Negative) 06/12/21 17:00 Urine Ketones Tr mg/dL (Negative) 06/12/21 17:00 Urine Blood Neg (Negative) 06/12/21 17:00 Urine Nitrite Neg (Negative) 06/12/21 17:00 Urine Bilirubin Neg (Negative) 06/12/21 17:00 Urine Urobilinogen < 2.0 mg/dL (<2.0) 06/12/21 17:00 Ur Leukocyte Esterase Neg (Negative) 06/12/21 17:00 Urine WBC (Auto) < 1.0 /HPF (0.0-6.0) 06/12/21 17:00 Urine RBC (Auto) < 1.0 /HPF (0.0-6.0) 06/12/21 17:00 Urine Creatinine 81.1 mg/dL (0.1-20.0) H 06/15/21 10:40 Urine Sodium 42 mmol/L 06/15/21 10:40 Coronavirus (PCR) Negative (Negative) 06/12/21 09:50 Blood Type O POSITIVE 06/24/21 06:40 Antibody Screen Negative 06/24/21 06:40 Crossmatch See Detail 06/24/21 06:40 Lujan/IV: Voiding Method Indwelling Catheter Active Medications - Current Medications Current Medications: Generic Name Dose Route Start Last Admin Trade Name Freq PRN Reason Stop Dose Admin Hydrocodone Bitart/Acetaminophen 1 each 07/04/21 10:00 07/10/21 18:36 Hydrocodone/Acetaminophen 5-325 Mg Tab PO 1 each Q6H PRN Administration Pain, Moderate (4-6) Amlodipine Besylate 5 mg 06/23/21 10:00 07/10/21 09:16 Amlodipine 5 Mg Tab PO 5 mg QDAY JOLENE Administration Lipase/Protease/Amylase 1 each 06/19/21 19:20 Lipase 10,500/Protease 25,000/Amylase 43,750 (Units) Dr Melgar FEEDTUBE PRN PRN For Clogged Feeding Tube Atorvastatin Calcium 20 mg 06/22/21 22:00 07/10/21 21:08 Atorvastatin 20 Mg Tab PO 20 mg QHS JOLENE Administration Baclofen 10 mg 07/07/21 11:39 07/09/21 02:15 Baclofen 10 Mg Tab PO 10 mg BID PRN Administration Muscle pain Enoxaparin Sodium 40 mg 06/30/21 22:00 07/10/21 21:08 Enoxaparin 40 Mg/0.4 Ml Inj SUB-Q 40 mg QDAY@2200 JOLENE Administration Protocol Famotidine 20 mg 06/24/21 22:00 07/10/21 21:08 Famotidine 20 Mg Tab FEEDTUBE 20 mg BID JOLENE Administration Furosemide 40 mg 07/10/21 15:00 07/11/21 06:29 Furosemide 40 Mg/4 Ml Inj IV 40 mg 0600,1800 JOLENE Administration Gabapentin 100 mg 07/07/21 14:00 07/11/21 08:31 Gabapentin 100 Mg Cap PO 100 mg TID JOLENE Administration Hydralazine HCl 100 mg 06/22/21 19:00 07/11/21 06:29 Hydralazine 100 Mg Tab FEEDTUBE 100 mg Q8HR JOLENE Administration Hydromorphone HCl 0.5 mg 07/10/21 12:00 07/10/21 21:08 Hydromorphone 1 Mg/1 Ml Inj IV 0.5 mg Q4H PRN Administration Pain , Severe (7-10) Insulin Glargine 30 units 07/04/21 22:00 07/10/21 21:08 Insulin Glargine 100 Units/Ml SUB-Q 30 units QHS JOLENE Administration Insulin Human Lispro 0 unit 06/12/21 12:00 07/11/21 06:30 Insulin Lispro 100 Unit/Ml SUB-Q 3 unit Q6HR JOLENE Administration Protocol Labetalol HCl 10 mg 06/21/21 18:00 07/10/21 10:27 Labetalol 20 Mg/4 Ml Inj IV 10 mg Q4HR PRN Administration Hypertension Melatonin 5 mg 07/05/21 22:00 07/10/21 21:08 Melatonin 5 Mg Tab PO 5 mg QHS JOLENE Administration Metoclopramide HCl 10 mg 06/11/21 20:42 Metoclopramide 10 Mg/2 Ml Inj IV Q6H PRN Nausea And Vomiting Ondansetron HCl 4 mg 06/11/21 20:42 Ondansetron 4 Mg/2 Ml Inj IV Q3H PRN Nausea And Vomiting Simple Syrup 15 ml 06/19/21 19:20 Simple Syrup 15 Ml FEEDTUBE PRN PRN Hypoglycemia Simple Syrup 30 ml 06/19/21 19:20 Simple Syrup 15 Ml FEEDTUBE PRN PRN Hypoglycemia Sodium Bicarbonate 325 mg 06/19/21 19:20 Sodium Bicarbonate 325 Mg Tab FEEDTUBE PRN PRN For Clogged Feeding Tube Sodium Chloride 10 ml 06/11/21 22:00 07/10/21 21:08 Sodium Chloride 0.9% 10 Ml Flush Syringe IV 10 ml BID JOLENE Administration Sodium Chloride 10 ml 06/11/21 20:42 Sodium Chloride 0.9% 10 Ml Flush Syringe IV PRN PRN LINE FLUSH Trazodone HCl 100 mg 07/05/21 22:00 07/10/21 21:07 Trazodone 50 Mg Tab PO 100 mg QHS JOLENE Administration Nutrition/Malnutrition Assess - Dietary Evaluation Nutrition/Malnutrition Findings: Nutrition Notes Start: 06/16/21 12:10 Freq: Status: Active Protocol: Document 07/08/21 14:32 [facility] (Rec: 07/08/21 14:43 [facility] [id number]) Nutrition Notes Initial or Follow up Reassessment Current Diagnosis Diabetes,Hypertension, Respiratory Failure Other Pertinent Diagnosis Jeremiah's Angina, s/p cardiac arrest Current Diet TF-Vital AF 1.2 Quan at 50 ml/ hr Labs/Tests BG 183 POC Glu range since last assessment: 121-246 Pertinent Medications Reviewed Height 5 ft 8 in Weight 108.6 kg [place] Body Weight (kg) 63.63 BMI 36.3 Weight change and time frame Wt change noted Weight Status Obese Subjective/Other Information TF off at time of visit (12:38 ). Pt scheduled for trach down-sizing today. Pt currently on T-piece at 28% and awaiting placement of Passey-Ann valve. (R) chest tube removed on 06/29. Per RN, pt had been tolerating TF at goal rate. Percent of energy/protein needs met: 95% energy 71% pro Burn Absent Trauma Absent #1 Nutrition Diagnosis Inadequate oral intake Diagnosis Progress(for reassessment Continues documentation) Is patient on ventilator? No Is Patient Ambulatory and/or Out of Bed No REE-([facility]-confined to bed) 1961.292 Kcal/Kg value to use for calculation 14 Approximate Energy Requirements Using 1520 kcal/Kg Calculation Used for Recommendations Kcal/kg Additional Notes Pro needs 2g/kg IBW: 127g/day Fluid needs 1ml/kcal Nutrition Intervention Nutrition Support: Continue Vital AF 1.2 Quan at 50 ml/hr with 80ml water flush q4h. Kcal 1,440 Protein (gm) 90 Carbohydrates (gm) 133 Fat (gm) 65 Fluid (mL) 973 Fiber (gm) 6 Goal #1 TF tolerance Goal #2 TF to meet nutrient needs as best possible Follow-Up By: 07/15/21 Additional Comments F/U: stable TF, wt, resp status
[2021-07-11] MEDS: FAMOTIDINE 20 MG TAB FEEDTUBE SCH ×2 (10:13→21:36)
[2021-07-11] MEDS: amLODIPine 5 MG TAB PO SCH (10:13)
--- NOTE | 2021-07-11 11:18 | Progress Note ---
Assessment and Plan Assessment and Plan Assessment and plan: This is 76-year-old female with past medical history of diabetes mellitus type 2, hypertension and gout who was admitted to the hospital on 06/11/2021 with swel ling of the submandibular region/tongue and shortness of breath. 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 Patient was also noted to have severe coagulopathy due to Coumadin and probably component of hemorrhagic shock with blood loss anemia. S/p vasopressor support with Levophed and Fabian-Synephrine Patient had hospital course complicated by cardiac arrest on 06/14 with ROSC. Patient is status post trach and PEG tube placement on 06/19/2021. Patient was a code met overnight and transfer back in the ICU on 07/04/21 due to decreased level of consciousness, respiratory distress and tachypnea. neurology consulted today for evaluation of diffuse weakness r/o MG !! Assessment and Plan # Diffuse weakness -r/o MG -she is with mostly proximal weakness Bilateral upper and lower -no sign of cranial nerves involvement, -No sign to suggest MG based on exam. -findings in Hx and exam is most likley related to ICU Myopathy/ neuropathy -pt. will benefit from extensive PT/Rehabilitation -Check B12 ,TSH WNL -and A1C# 4.6 -CK are pending -Ct brain is unremarkable -MRI brain is cancelled !!! #Acute Pain - New report of BLE pain and swelling - BLE did appear swollen with palpable pedal pulses - BLE doppler is negative - Resume gabapentin 300 mg tid - Continue Lidocaine patch and PRN analgesic for pain control - Maintenance of sleep-wake cycle, continue Trazadone and melatonin - Continue mobility/strenght and conditioning with PT #Diabetes mellitus type 2 -Continue SSI Q6hrs -Lantus Qhs -Avoid Hypoglycemia #Acute Hypoxic Respiratory Failure -S/p emergent cricothyroidectomy with surgery with 8.00 ETT #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 from dental caries #Leukocytosis-improved -CT neck with contrast showed a significant right floor of mild swelling with extension into the submandibular and submental spaces, significant thickening and inflammation involving the right pharyngeal wall, with the parapharyngeal and retropharyngeal spaces at the level of the thyroid cartilage, epiglottis significantly swollen and so are the aryepiglottic folds resulting in significant airway narrowing at this level, no lymphadenopathy, symmetric submandibular and parathyroid glands, S few scattered caries but no periapical lucencies, nonspecific calcification along the right lateral oropharynx, no definite stone seen within the territory of the submandibular gland ducts, no suspicious rashes lesion #Hypokalemia -K repleted #Right-sided pneumothorax -s/p Right chest tube removed 06/29 -06/13 bronchoscopy showed possible blood clot in left lung which may be acting as mucous plug however it was left in place due to possible bleeding inside lung if removed. -06/16 CT chest shows moderate right pneumothorax with collapse of right upper lobe, right thoracostomy tube terminates at the collapsed right upper lobe, bilateral bronchus opacities compatible with infectious/inflammatory etiology, bilateral small pleural effusion, extensive subcutaneous air, small fluid collection in the anterior mediastinum is nonspecific #Hypertension #s/p Cardiac arrest -Patient s/p cardiac arrest with ROSC on 06/14. -S/p vasopressor support with Levophed and Fabian-Synephrine -06/13 Echocardiogram EF 65-70% -BP is stable continue current anihypertensive regimen -Continue blood pressure monitor per protocol -PRN labetalol for SBP greater than 160 - CT brain is unremarkable MRI brain not done / cancelled !! #Coagulopathy-resolved #Acute blood loss anemia-resolved -Patient was on coumadin at home -Continue Lovenix SubQ -Transfuse hemoglobin less than 7 -Monitor for signs of bleeding #GI/DVT Prophylaxis -PPI- Pepcid -Continue AC-Lovenox -SCDs to BLE while in bed Subjective Date of service: 07/11/21 Interval history: doing well alert interactive she is on T tube for breathing/tracheostomy Pt therapy started bed side MRI brain not done? CT brain done is unremarkable CK is pending A1C is wnl Objective - Vital Sign Vital Signs - 12hr 07/10/21 07/11/21 07/11/21 23:30 00:00 00:30 Temperature 98.9 F Pulse Rate 96 H 98 H 96 H Pulse Rate [ 96 H From Monitor] Respiratory 17 18 18 Rate Blood Pressure 117/60 130/71 130/71 O2 Sat by Pulse 98 98 99 Oximetry O2 Sat by Pulse 99 Oximetry [ Assessment] 07/11/21 07/11/21 07/11/21 01:00 01:30 02:00 Temperature Pulse Rate 97 H 96 H 97 H Pulse Rate [ From Monitor] Respiratory 17 18 21 Rate Blood Pressure 141/78 141/78 134/69 O2 Sat by Pulse 98 98 97 Oximetry O2 Sat by Pulse Oximetry [ Assessment] 07/11/21 07/11/21 07/11/21 02:30 03:00 03:30 Temperature Pulse Rate 99 H 100 H 97 H Pulse Rate [ From Monitor] Respiratory 18 19 21 Rate Blood Pressure 134/69 128/68 128/68 O2 Sat by Pulse 98 99 99 Oximetry O2 Sat by Pulse Oximetry [ Assessment] 07/11/21 07/11/21 07/11/21 03:45 04:00 04:30 Temperature 98.4 F Pulse Rate 95 H 98 H Pulse Rate [ 101 H From Monitor] Respiratory 16 13 Rate Blood Pressure 137/75 137/75 O2 Sat by Pulse 98 99 Oximetry O2 Sat by Pulse Oximetry [ Assessment] 07/11/21 07/11/21 07/11/21 05:00 05:31 06:00 Temperature Pulse Rate 103 H 98 H 98 H Pulse Rate [ From Monitor] Respiratory 20 16 13 Rate Blood Pressure 137/75 141/73 140/70 O2 Sat by Pulse 100 99 100 Oximetry O2 Sat by Pulse Oximetry [ Assessment] 07/11/21 07/11/21 07/11/21 07:14 10:09 10:10 Temperature 99.3 F Pulse Rate Pulse Rate [ From Monitor] Respiratory Rate Blood Pressure O2 Sat by Pulse 98 Oximetry O2 Sat by Pulse 99 Oximetry [ Assessment] 07/11/21 10:13 Temperature Pulse Rate 108 H Pulse Rate [ From Monitor] Respiratory Rate Blood Pressure 107/65 O2 Sat by Pulse Oximetry O2 Sat by Pulse Oximetry [ Assessment] - General Apperance Constitutional: comfortable - EENT EENT: PERRL, mucous membranes moist - Respiratory Respiratory: lungs clear, rhonchi - Cardiovascular Cardiovascular: regular rate, normal S1, normal S2 Extremities: no peripheral edema bilat, no clubbing, cyanosis - Gastrointestinal Gastrointestinal: normoactive bowel sounds - Integumentary Integumentary: normal - Neurologic Cranial nerve examination: PERRL, EOMI, intact Speech examination: intact Detailed motor examination: other (diffuse weakness yuriy proximal than distal upper and lower extremities suppressed reflexes is noted) - Laboratory Findings CBC and BMP: 07/11/21 04:04 07/11/21 04:04 Abnormal Lab Findings: Abnormal Labs 06/11/21 06/11/21 06/11/21 15:23 15:23 19:20 WBC 12.0 H RBC Hgb Hct MCV 72 L MCH 21 L RDW 17.5 H Plt Count Lymph % (Auto) 12.9 L [place] % (Auto) 8.6 H Lymph # (Auto) [place] # (Auto) 1.0 H Seg Neutrophils % 77.4 H Seg Neuts % (Manual) Lymphocytes % (Manual) Monocytes % (Manual) Basophils % (Manual) Seg Neutrophils # 9.3 H Seg Neutrophils # Man Lymphocytes # (Manual) Monocytes # (Manual) PT INR APTT Fibrinogen D-Dimer ABG pH POC ABG pCO2 POC ABG pO2 ABG pO2 ABG HCO3 ABG O2 Saturation ABG Base Excess ABG Hemoglobin ABG Oxyhemoglobin Oxyhemoglobin Sodium Potassium Chloride Carbon Dioxide BUN Creatinine Glucose 144 H POC Glucose Lactic Acid Calcium Phosphorus Magnesium AST ALT Alkaline Phosphatase C-Reactive Protein Total Protein Albumin Triglycerides Ur Specific [place] Urine Creatinine Crossmatch See Detail 06/11/21 06/11/21 06/11/21 19:29 19:29 23:21 WBC 15.8 H RBC Hgb 9.4 L Hct MCV 72 L MCH 22 L RDW 17.4 H Plt Count Lymph % (Auto) 9.2 L [place] % (Auto) Lymph # (Auto) [place] # (Auto) Seg Neutrophils % 89.0 H Seg Neuts % (Manual) Lymphocytes % (Manual) Monocytes % (Manual) Basophils % (Manual) Seg Neutrophils # 14.0 H Seg Neutrophils # Man Lymphocytes # (Manual) Monocytes # (Manual) PT 72.9 H INR 8.18 H* APTT 71.7 H* Fibrinogen D-Dimer ABG pH POC ABG pCO2 POC ABG pO2 ABG pO2 ABG HCO3 ABG O2 Saturation ABG Base Excess ABG Hemoglobin ABG Oxyhemoglobin Oxyhemoglobin Sodium 149 H D Potassium Chloride 124.3 H Carbon Dioxide 8 L* D BUN Creatinine 0.3 L Glucose 628 H* POC Glucose Lactic Acid Calcium 2.4 L* D Phosphorus Magnesium AST ALT < 5 L Alkaline Phosphatase 19 L C-Reactive Protein Total Protein 1.6 L D Albumin 0.8 L Triglycerides Ur Specific [place] Urine Creatinine Crossmatch 06/11/21 06/11/21 06/11/21 23:21 23:22 23:42 WBC RBC Hgb Hct MCV MCH 27 L RDW 22.2 H Plt Count 131 L Lymph % (Auto) [place] % (Auto) Lymph # (Auto) [place] # (Auto) Seg Neutrophils % Seg Neuts % (Manual) Lymphocytes % (Manual) Monocytes % (Manual) Basophils % (Manual) Seg Neutrophils # Seg Neutrophils # Man Lymphocytes # (Manual) Monocytes # (Manual) PT 46.3 H INR 4.55 H APTT 54.8 H Fibrinogen D-Dimer ABG pH POC ABG pCO2 POC ABG pO2 325.9 H ABG pO2 ABG HCO3 ABG O2 Saturation ABG Base Excess ABG Hemoglobin 8.0 L ABG Oxyhemoglobin 99.0 H Oxyhemoglobin Sodium Potassium Chloride Carbon Dioxide BUN Creatinine Glucose POC Glucose Lactic Acid Calcium Phosphorus Magnesium AST ALT Alkaline Phosphatase C-Reactive Protein Total Protein Albumin Triglycerides Ur Specific [place] Urine Creatinine Crossmatch 06/12/21 06/12/21 06/12/21 01:45 01:45 01:45 WBC 21.6 H RBC 3.04 L Hgb 6.7 L D Hct 22.4 L D MCV 74 L MCH 22 L RDW 18.9 H Plt Count Lymph % (Auto) [place] % (Auto) Lymph # (Auto) [place] # (Auto) Seg Neutrophils % Seg Neuts % (Manual) 76.0 H Lymphocytes % (Manual) 2.0 L Monocytes % (Manual) 8.0 H Basophils % (Manual) Seg Neutrophils # Seg Neutrophils # Man 16.4 H Lymphocytes # (Manual) 0.4 L Monocytes # (Manual) 1.7 H PT 25.4 H INR 2.10 H APTT Fibrinogen D-Dimer ABG pH POC ABG pCO2 POC ABG pO2 ABG pO2 ABG HCO3 ABG O2 Saturation ABG Base Excess ABG Hemoglobin ABG Oxyhemoglobin Oxyhemoglobin Sodium Potassium 5.6 H D Chloride Carbon Dioxide 20 L D BUN Creatinine Glucose 368 H POC Glucose Lactic Acid Calcium 7.1 L D Phosphorus Magnesium AST ALT Alkaline Phosphatase C-Reactive Protein Total Protein 5.3 L D Albumin 3.1 L Triglycerides Ur Specific [place] Urine Creatinine Crossmatch 06/12/21 06/12/21 06/12/21 02:05 04:41 11:05 WBC 14.6 H RBC 3.52 L Hgb 8.5 L Hct 27.7 L MCV MCH 24 L RDW 20.9 H Plt Count Lymph % (Auto) [place] % (Auto) Lymph # (Auto) [place] # (Auto) Seg Neutrophils % Seg Neuts % (Manual) Lymphocytes % (Manual) Monocytes % (Manual) Basophils % (Manual) Seg Neutrophils # Seg Neutrophils # Man Lymphocytes # (Manual) Monocytes # (Manual) PT INR APTT Fibrinogen D-Dimer ABG pH POC ABG pCO2 POC ABG pO2 224.6 H ABG pO2 ABG HCO3 ABG O2 Saturation ABG Base Excess ABG Hemoglobin 7.3 L ABG Oxyhemoglobin 98.7 H Oxyhemoglobin Sodium Potassium Chloride Carbon Dioxide BUN Creatinine Glucose POC Glucose 308 H Lactic Acid Calcium Phosphorus Magnesium AST ALT Alkaline Phosphatase C-Reactive Protein Total Protein Albumin Triglycerides Ur Specific [place] Urine Creatinine Crossmatch 06/12/21 06/12/21 06/12/21 11:05 11:05 12:18 WBC RBC Hgb Hct MCV MCH RDW Plt Count Lymph % (Auto) [place] % (Auto) Lymph # (Auto) [place] # (Auto) Seg Neutrophils % Seg Neuts % (Manual) Lymphocytes % (Manual) Monocytes % (Manual) Basophils % (Manual) Seg Neutrophils # Seg Neutrophils # Man Lymphocytes # (Manual) Monocytes # (Manual) PT 16.8 H INR 1.23 H APTT Fibrinogen D-Dimer ABG pH POC ABG pCO2 POC ABG pO2 ABG pO2 ABG HCO3 ABG O2 Saturation ABG Base Excess ABG Hemoglobin ABG Oxyhemoglobin Oxyhemoglobin Sodium Potassium Chloride Carbon Dioxide BUN 24 H Creatinine Glucose 324 H POC Glucose 281 H Lactic Acid Calcium 7.5 L Phosphorus Magnesium AST 70 H ALT 57 H Alkaline Phosphatase C-Reactive Protein Total Protein 6.0 L Albumin 3.6 L Triglycerides Ur Specific [place] Urine Creatinine Crossmatch 06/12/21 06/12/21 06/12/21 17:00 17:00 17:00 WBC RBC Hgb 7.5 L Hct 24.0 L MCV MCH RDW Plt Count Lymph % (Auto) [place] % (Auto) Lymph # (Auto) [place] # (Auto) Seg Neutrophils % Seg Neuts % (Manual) Lymphocytes % (Manual) Monocytes % (Manual) Basophils % (Manual) Seg Neutrophils # Seg Neutrophils # Man Lymphocytes # (Manual) Monocytes # (Manual) PT 16.0 H INR 1.16 H APTT Fibrinogen D-Dimer ABG pH POC ABG pCO2 POC ABG pO2 ABG pO2 ABG HCO3 ABG O2 Saturation ABG Base Excess ABG Hemoglobin ABG Oxyhemoglobin Oxyhemoglobin Sodium Potassium Chloride Carbon Dioxide BUN Creatinine Glucose POC Glucose Lactic Acid Calcium Phosphorus Magnesium AST ALT Alkaline Phosphatase C-Reactive Protein Total Protein Albumin Triglycerides Ur Specific [place] 1.035 H Urine Creatinine Crossmatch 06/12/21 06/12/21 06/12/21 18:06 23:00 23:05 WBC RBC Hgb 7.6 L Hct 23.5 L MCV MCH RDW Plt Count Lymph % (Auto) [place] % (Auto) Lymph # (Auto) [place] # (Auto) Seg Neutrophils % Seg Neuts % (Manual) Lymphocytes % (Manual) Monocytes % (Manual) Basophils % (Manual) Seg Neutrophils # Seg Neutrophils # Man Lymphocytes # (Manual) Monocytes # (Manual) PT INR APTT Fibrinogen D-Dimer ABG pH POC ABG pCO2 POC ABG pO2 ABG pO2 ABG HCO3 ABG O2 Saturation ABG Base Excess ABG Hemoglobin ABG Oxyhemoglobin Oxyhemoglobin Sodium Potassium Chloride Carbon Dioxide BUN Creatinine Glucose POC Glucose 257 H 300 H Lactic Acid Calcium Phosphorus Magnesium AST ALT Alkaline Phosphatase C-Reactive Protein Total Protein Albumin Triglycerides Ur Specific [place] Urine Creatinine Crossmatch 06/13/21 06/13/21 06/13/21 04:31 05:19 07:30 WBC RBC Hgb 6.8 L Hct 21.7 L MCV MCH RDW Plt Count Lymph % (Auto) [place] % (Auto) Lymph # (Auto) [place] # (Auto) Seg Neutrophils % Seg Neuts % (Manual) Lymphocytes % (Manual) Monocytes % (Manual) Basophils % (Manual) Seg Neutrophils # Seg Neutrophils # Man Lymphocytes # (Manual) Monocytes # (Manual) PT INR APTT Fibrinogen D-Dimer ABG pH 7.541 H POC ABG pCO2 25.6 L POC ABG pO2 138.8 H ABG pO2 ABG HCO3 ABG O2 Saturation ABG Base Excess ABG Hemoglobin 7.3 L ABG Oxyhemoglobin 98.1 H Oxyhemoglobin Sodium Potassium Chloride Carbon Dioxide BUN Creatinine Glucose POC Glucose 286 H Lactic Acid Calcium Phosphorus Magnesium AST ALT Alkaline Phosphatase C-Reactive Protein Total Protein Albumin Triglycerides Ur Specific [place] Urine Creatinine Crossmatch 06/13/21 06/13/21 06/13/21 07:30 12:04 14:50 WBC RBC Hgb Hct MCV MCH RDW Plt Count Lymph % (Auto) [place] % (Auto) Lymph # (Auto) [place] # (Auto) Seg Neutrophils % Seg Neuts % (Manual) Lymphocytes % (Manual) Monocytes % (Manual) Basophils % (Manual) Seg Neutrophils # Seg Neutrophils # Man Lymphocytes # (Manual) Monocytes # (Manual) PT INR APTT Fibrinogen D-Dimer ABG pH 7.039 L* 7.182 L* POC ABG pCO2 POC ABG pO2 ABG pO2 63.1 L ABG HCO3 17.4 L ABG O2 Saturation 73.4 L ABG Base Excess -12.6 L -7.1 L ABG Hemoglobin 7.7 L 6.9 L ABG Oxyhemoglobin Oxyhemoglobin 71.8 L 93.5 L Sodium Potassium Chloride 108.9 H Carbon Dioxide BUN 28 H Creatinine Glucose 293 H POC Glucose Lactic Acid Calcium 7.2 L Phosphorus Magnesium AST 106 H ALT 92 H Alkaline Phosphatase C-Reactive Protein Total Protein 5.6 L Albumin 3.3 L Triglycerides Ur Specific [place] Urine Creatinine Crossmatch 06/13/21 06/13/21 06/13/21 14:54 15:45 17:34 WBC RBC Hgb Hct MCV MCH RDW Plt Count Lymph % (Auto) [place] % (Auto) Lymph # (Auto) [place] # (Auto) Seg Neutrophils % Seg Neuts % (Manual) Lymphocytes % (Manual) Monocytes % (Manual) Basophils % (Manual) Seg Neutrophils # Seg Neutrophils # Man Lymphocytes # (Manual) Monocytes # (Manual) PT INR APTT Fibrinogen D-Dimer ABG pH POC ABG pCO2 POC ABG pO2 ABG pO2 178.4 H ABG HCO3 ABG O2 Saturation 99.1 H ABG Base Excess ABG Hemoglobin 8.0 L ABG Oxyhemoglobin Oxyhemoglobin Sodium Potassium Chloride 107.3 H Carbon Dioxide 19 L BUN 33 H Creatinine 1.5 H Glucose 379 H POC Glucose Lactic Acid 5.30 H* Calcium 6.8 L Phosphorus Magnesium AST ALT Alkaline Phosphatase C-Reactive Protein Total Protein Albumin Triglycerides Ur Specific [place] Urine Creatinine Crossmatch 06/13/21 06/13/21 06/13/21 17:40 23:29 Unknown WBC 22.5 H RBC 3.16 L Hgb 8.0 L Hct 26.0 L MCV MCH 26 L RDW 21.4 H Plt Count Lymph % (Auto) [place] % (Auto) Lymph # (Auto) [place] # (Auto) Seg Neutrophils % Seg Neuts % (Manual) 88.0 H Lymphocytes % (Manual) 4.0 L Monocytes % (Manual) Basophils % (Manual) Seg Neutrophils # Seg Neutrophils # Man 19.8 H Lymphocytes # (Manual) 0.9 L Monocytes # (Manual) 1.4 H PT INR APTT Fibrinogen D-Dimer ABG pH POC ABG pCO2 POC ABG pO2 ABG pO2 ABG HCO3 ABG O2 Saturation ABG Base Excess ABG Hemoglobin ABG Oxyhemoglobin Oxyhemoglobin Sodium Potassium Chloride Carbon Dioxide BUN Creatinine Glucose POC Glucose 294 H 288 H Lactic Acid Calcium Phosphorus Magnesium AST ALT Alkaline Phosphatase C-Reactive Protein Total Protein Albumin Triglycerides Ur Specific [place] Urine Creatinine Crossmatch 06/13/21 06/14/21 06/14/21 Unknown 05:39 06:15 WBC RBC 2.93 L Hgb 7.2 L Hct 23.2 L MCV MCH 25 L RDW 21.2 H Plt Count Lymph % (Auto) [place] % (Auto) Lymph # (Auto) [place] # (Auto) Seg Neutrophils % Seg Neuts % (Manual) Lymphocytes % (Manual) Monocytes % (Manual) Basophils % (Manual) Seg Neutrophils # Seg Neutrophils # Man Lymphocytes # (Manual) Monocytes # (Manual) PT 17.6 H INR 1.31 H APTT Fibrinogen 546 H D-Dimer 1244.63 H ABG pH POC ABG pCO2 POC ABG pO2 ABG pO2 ABG HCO3 ABG O2 Saturation ABG Base Excess ABG Hemoglobin ABG Oxyhemoglobin Oxyhemoglobin Sodium Potassium Chloride Carbon Dioxide BUN Creatinine Glucose POC Glucose 246 H Lactic Acid Calcium Phosphorus Magnesium AST ALT Alkaline Phosphatase C-Reactive Protein Total Protein Albumin Triglycerides Ur Specific [place] Urine Creatinine Crossmatch 06/14/21 06/14/21 06/14/21 06:15 06:15 09:13 WBC RBC Hgb Hct MCV MCH RDW Plt Count Lymph % (Auto) [place] % (Auto) Lymph # (Auto) [place] # (Auto) Seg Neutrophils % Seg Neuts % (Manual) Lymphocytes % (Manual) Monocytes % (Manual) Basophils % (Manual) Seg Neutrophils # Seg Neutrophils # Man Lymphocytes # (Manual) Monocytes # (Manual) PT INR APTT Fibrinogen D-Dimer ABG pH POC ABG pCO2 POC ABG pO2 ABG pO2 183.0 H ABG HCO3 ABG O2 Saturation 99.2 H ABG Base Excess ABG Hemoglobin 6.6 L ABG Oxyhemoglobin Oxyhemoglobin Sodium 147 H Potassium Chloride 112.5 H Carbon Dioxide 21 L BUN 36 H Creatinine 1.4 H Glucose 281 H POC Glucose Lactic Acid Calcium 6.9 L Phosphorus Magnesium AST ALT Alkaline Phosphatase C-Reactive Protein Total Protein Albumin Triglycerides 189 H Ur Specific [place] Urine Creatinine Crossmatch 06/14/21 06/14/21 06/14/21 10:45 12:16 13:30 WBC RBC Hgb 7.1 L Hct 22.3 L MCV MCH RDW Plt Count Lymph % (Auto) [place] % (Auto) Lymph # (Auto) [place] # (Auto) Seg Neutrophils % Seg Neuts % (Manual) Lymphocytes % (Manual) Monocytes % (Manual) Basophils % (Manual) Seg Neutrophils # Seg Neutrophils # Man Lymphocytes # (Manual) Monocytes # (Manual) PT INR APTT Fibrinogen D-Dimer ABG pH 7.205 L POC ABG pCO2 POC ABG pO2 ABG pO2 261.3 H ABG HCO3 ABG O2 Saturation 99.4 H ABG Base Excess -7.2 L ABG Hemoglobin 7.6 L ABG Oxyhemoglobin Oxyhemoglobin Sodium Potassium Chloride Carbon Dioxide BUN Creatinine Glucose POC Glucose 174 H Lactic Acid Calcium Phosphorus Magnesium AST ALT Alkaline Phosphatase C-Reactive Protein Total Protein Albumin Triglycerides Ur Specific [place] Urine Creatinine Crossmatch 06/14/21 06/14/21 06/15/21 17:40 18:43 00:06 WBC RBC Hgb Hct MCV MCH RDW Plt Count Lymph % (Auto) [place] % (Auto) Lymph # (Auto) [place] # (Auto) Seg Neutrophils % Seg Neuts % (Manual) Lymphocytes % (Manual) Monocytes % (Manual) Basophils % (Manual) Seg Neutrophils # Seg Neutrophils # Man Lymphocytes # (Manual) Monocytes # (Manual) PT INR APTT Fibrinogen D-Dimer ABG pH 7.292 L POC ABG pCO2 POC ABG pO2 ABG pO2 78.8 L ABG HCO3 ABG O2 Saturation ABG Base Excess -5.0 L ABG Hemoglobin 9.1 L ABG Oxyhemoglobin Oxyhemoglobin 93.7 L Sodium Potassium Chloride Carbon Dioxide BUN Creatinine Glucose POC Glucose 182 H 144 H Lactic Acid Calcium Phosphorus Magnesium AST ALT Alkaline Phosphatase C-Reactive Protein Total Protein Albumin Triglycerides Ur Specific [place] Urine Creatinine Crossmatch 06/15/21 06/15/21 06/15/21 03:55 03:56 10:40 WBC RBC Hgb 8.4 L Hct 25.8 L MCV MCH RDW Plt Count Lymph % (Auto) [place] % (Auto) Lymph # (Auto) [place] # (Auto) Seg Neutrophils % Seg Neuts % (Manual) Lymphocytes % (Manual) Monocytes % (Manual) Basophils % (Manual) Seg Neutrophils # Seg Neutrophils # Man Lymphocytes # (Manual) Monocytes # (Manual) PT INR APTT Fibrinogen D-Dimer ABG pH POC ABG pCO2 POC ABG pO2 ABG pO2 ABG HCO3 ABG O2 Saturation ABG Base Excess ABG Hemoglobin ABG Oxyhemoglobin Oxyhemoglobin Sodium 147 H Potassium Chloride 112.2 H Carbon Dioxide 21 L BUN 47 H Creatinine 1.9 H Glucose 272 H POC Glucose Lactic Acid Calcium 7.3 L Phosphorus Magnesium AST 64 H ALT 106 H Alkaline Phosphatase C-Reactive Protein Total Protein 5.1 L Albumin 2.9 L Triglycerides Ur Specific [place] Urine Creatinine 81.1 H Crossmatch 06/15/21 06/15/21 06/15/21 11:46 17:16 23:17 WBC RBC Hgb Hct MCV MCH RDW Plt Count Lymph % (Auto) [place] % (Auto) Lymph # (Auto) [place] # (Auto) Seg Neutrophils % Seg Neuts % (Manual) Lymphocytes % (Manual) Monocytes % (Manual) Basophils % (Manual) Seg Neutrophils # Seg Neutrophils # Man Lymphocytes # (Manual) Monocytes # (Manual) PT INR APTT Fibrinogen D-Dimer ABG pH POC ABG pCO2 POC ABG pO2 ABG pO2 ABG HCO3 ABG O2 Saturation ABG Base Excess ABG Hemoglobin ABG Oxyhemoglobin Oxyhemoglobin Sodium Potassium Chloride Carbon Dioxide BUN Creatinine Glucose POC Glucose 271 H 268 H 264 H Lactic Acid Calcium Phosphorus Magnesium AST ALT Alkaline Phosphatase C-Reactive Protein Total Protein Albumin Triglycerides Ur Specific [place] Urine Creatinine Crossmatch 06/15/21 06/15/21 06/16/21 Unknown Unknown 04:32 WBC RBC 3.21 L 3.16 L Hgb 8.4 L 8.2 L Hct 26.1 L 25.4 L MCV MCH 26 L 26 L RDW 21.3 H 21.2 H Plt Count 105 L 118 L Lymph % (Auto) [place] % (Auto) Lymph # (Auto) [place] # (Auto) Seg Neutrophils % Seg Neuts % (Manual) Lymphocytes % (Manual) Monocytes % (Manual) Basophils % (Manual) Seg Neutrophils # Seg Neutrophils # Man Lymphocytes # (Manual) Monocytes # (Manual) PT INR APTT Fibrinogen D-Dimer ABG pH 7.465 H POC ABG pCO2 POC ABG pO2 ABG pO2 114.1 H ABG HCO3 ABG O2 Saturation ABG Base Excess ABG Hemoglobin 8.4 L ABG Oxyhemoglobin Oxyhemoglobin Sodium Potassium Chloride Carbon Dioxide BUN Creatinine Glucose POC Glucose Lactic Acid Calcium Phosphorus Magnesium AST ALT Alkaline Phosphatase C-Reactive Protein Total Protein Albumin Triglycerides Ur Specific [place] Urine Creatinine Crossmatch 06/16/21 06/16/21 06/16/21 04:32 04:32 05:08 WBC RBC Hgb Hct MCV MCH RDW Plt Count Lymph % (Auto) [place] % (Auto) Lymph # (Auto) [place] # (Auto) Seg Neutrophils % Seg Neuts % (Manual) Lymphocytes % (Manual) Monocytes % (Manual) Basophils % (Manual) Seg Neutrophils # Seg Neutrophils # Man Lymphocytes # (Manual) Monocytes # (Manual) PT INR APTT Fibrinogen D-Dimer ABG pH POC ABG pCO2 POC ABG pO2 ABG pO2 ABG HCO3 ABG O2 Saturation ABG Base Excess ABG Hemoglobin ABG Oxyhemoglobin Oxyhemoglobin Sodium 148 H Potassium 3.3 L Chloride 115.1 H Carbon Dioxide 21 L BUN 54 H Creatinine 1.6 H Glucose 367 H POC Glucose 356 H Lactic Acid Calcium 7.4 L Phosphorus Magnesium AST ALT Alkaline Phosphatase C-Reactive Protein 3.30 H Total Protein Albumin Triglycerides Ur Specific [place] Urine Creatinine Crossmatch 06/16/21 06/16/21 06/16/21 05:30 11:46 17:03 WBC RBC Hgb Hct MCV MCH RDW Plt Count Lymph % (Auto) [place] % (Auto) Lymph # (Auto) [place] # (Auto) Seg Neutrophils % Seg Neuts % (Manual) Lymphocytes % (Manual) Monocytes % (Manual) Basophils % (Manual) Seg Neutrophils # Seg Neutrophils # Man Lymphocytes # (Manual) Monocytes # (Manual) PT INR APTT Fibrinogen D-Dimer ABG pH 7.475 H POC ABG pCO2 POC ABG pO2 ABG pO2 171.8 H ABG HCO3 ABG O2 Saturation 99.1 H ABG Base Excess ABG Hemoglobin 11.7 L ABG Oxyhemoglobin Oxyhemoglobin Sodium Potassium Chloride Carbon Dioxide BUN Creatinine Glucose POC Glucose 309 H 345 H Lactic Acid Calcium Phosphorus Magnesium AST ALT Alkaline Phosphatase C-Reactive Protein Total Protein Albumin Triglycerides Ur Specific [place] Urine Creatinine Crossmatch 06/16/21 06/16/21 06/17/21 20:18 23:22 04:50 WBC RBC Hgb Hct MCV MCH RDW Plt Count Lymph % (Auto) [place] % (Auto) Lymph # (Auto) [place] # (Auto) Seg Neutrophils % Seg Neuts % (Manual) Lymphocytes % (Manual) Monocytes % (Manual) Basophils % (Manual) Seg Neutrophils # Seg Neutrophils # Man Lymphocytes # (Manual) Monocytes # (Manual) PT INR APTT Fibrinogen D-Dimer ABG pH 7.479 H POC ABG pCO2 POC ABG pO2 ABG pO2 143.1 H ABG HCO3 ABG O2 Saturation ABG Base Excess ABG Hemoglobin 10.0 L ABG Oxyhemoglobin Oxyhemoglobin Sodium Potassium Chloride Carbon Dioxide BUN Creatinine Glucose POC Glucose 325 H 315 H Lactic Acid Calcium Phosphorus Magnesium AST ALT Alkaline Phosphatase C-Reactive Protein Total Protein Albumin Triglycerides Ur Specific [place] Urine Creatinine Crossmatch 06/17/21 06/17/21 06/17/21 05:18 05:30 05:30 WBC RBC 3.17 L Hgb 8.2 L Hct 25.5 L MCV MCH 26 L RDW 21.2 H Plt Count 128 L Lymph % (Auto) [place] % (Auto) Lymph # (Auto) [place] # (Auto) Seg Neutrophils % Seg Neuts % (Manual) Lymphocytes % (Manual) Monocytes % (Manual) Basophils % (Manual) Seg Neutrophils # Seg Neutrophils # Man Lymphocytes # (Manual) Monocytes # (Manual) PT INR APTT Fibrinogen D-Dimer ABG pH POC ABG pCO2 POC ABG pO2 ABG pO2 ABG HCO3 ABG O2 Saturation ABG Base Excess ABG Hemoglobin ABG Oxyhemoglobin Oxyhemoglobin Sodium 148 H Potassium Chloride 113.7 H Carbon Dioxide 20 L BUN 57 H Creatinine 1.4 H Glucose 351 H POC Glucose 324 H Lactic Acid Calcium 8.0 L Phosphorus 2.30 L Magnesium AST ALT Alkaline Phosphatase C-Reactive Protein Total Protein Albumin Triglycerides Ur Specific [place] Urine Creatinine Crossmatch 06/17/21 06/17/21 06/17/21 11:49 17:43 21:42 WBC RBC Hgb Hct MCV MCH RDW Plt Count Lymph % (Auto) [place] % (Auto) Lymph # (Auto) [place] # (Auto) Seg Neutrophils % Seg Neuts % (Manual) Lymphocytes % (Manual) Monocytes % (Manual) Basophils % (Manual) Seg Neutrophils # Seg Neutrophils # Man Lymphocytes # (Manual) Monocytes # (Manual) PT INR APTT Fibrinogen D-Dimer ABG pH POC ABG pCO2 POC ABG pO2 ABG pO2 ABG HCO3 ABG O2 Saturation ABG Base Excess ABG Hemoglobin ABG Oxyhemoglobin Oxyhemoglobin Sodium Potassium Chloride Carbon Dioxide BUN Creatinine Glucose POC Glucose 305 H 307 H 286 H Lactic Acid Calcium Phosphorus Magnesium AST ALT Alkaline Phosphatase C-Reactive Protein Total Protein Albumin Triglycerides Ur Specific [place] Urine Creatinine Crossmatch 06/17/21 06/18/21 06/18/21 23:59 04:20 04:37 WBC RBC 3.53 L Hgb 9.1 L Hct 28.7 L MCV MCH 26 L RDW 21.3 H Plt Count Lymph % (Auto) [place] % (Auto) Lymph # (Auto) [place] # (Auto) Seg Neutrophils % Seg Neuts % (Manual) Lymphocytes % (Manual) Monocytes % (Manual) Basophils % (Manual) Seg Neutrophils # Seg Neutrophils # Man Lymphocytes # (Manual) Monocytes # (Manual) PT INR APTT Fibrinogen D-Dimer ABG pH 7.495 H POC ABG pCO2 POC ABG pO2 ABG pO2 108.3 H ABG HCO3 ABG O2 Saturation ABG Base Excess -2.1 L ABG Hemoglobin 10.0 L ABG Oxyhemoglobin Oxyhemoglobin Sodium Potassium Chloride Carbon Dioxide BUN Creatinine Glucose POC Glucose 264 H Lactic Acid Calcium Phosphorus Magnesium AST ALT Alkaline Phosphatase C-Reactive Protein Total Protein Albumin Triglycerides Ur Specific [place] Urine Creatinine Crossmatch 06/18/21 06/18/21 06/18/21 04:37 05:32 11:21 WBC RBC Hgb Hct MCV MCH RDW Plt Count Lymph % (Auto) [place] % (Auto) Lymph # (Auto) [place] # (Auto) Seg Neutrophils % Seg Neuts % (Manual) Lymphocytes % (Manual) Monocytes % (Manual) Basophils % (Manual) Seg Neutrophils # Seg Neutrophils # Man Lymphocytes # (Manual) Monocytes # (Manual) PT INR APTT Fibrinogen D-Dimer ABG pH POC ABG pCO2 POC ABG pO2 ABG pO2 ABG HCO3 ABG O2 Saturation ABG Base Excess ABG Hemoglobin ABG Oxyhemoglobin Oxyhemoglobin Sodium 148 H Potassium Chloride 114.7 H Carbon Dioxide BUN 59 H Creatinine 1.3 H Glucose 329 H POC Glucose 293 H 291 H Lactic Acid Calcium 8.1 L Phosphorus Magnesium AST ALT Alkaline Phosphatase C-Reactive Protein Total Protein Albumin Triglycerides Ur Specific [place] Urine Creatinine Crossmatch 06/18/21 06/18/21 06/19/21 18:21 21:46 00:15 WBC RBC Hgb Hct MCV MCH RDW Plt Count Lymph % (Auto) [place] % (Auto) Lymph # (Auto) [place] # (Auto) Seg Neutrophils % Seg Neuts % (Manual) Lymphocytes % (Manual) Monocytes % (Manual) Basophils % (Manual) Seg Neutrophils # Seg Neutrophils # Man Lymphocytes # (Manual) Monocytes # (Manual) PT INR APTT Fibrinogen D-Dimer ABG pH POC ABG pCO2 POC ABG pO2 ABG pO2 ABG HCO3 ABG O2 Saturation ABG Base Excess ABG Hemoglobin ABG Oxyhemoglobin Oxyhemoglobin Sodium Potassium Chloride Carbon Dioxide BUN Creatinine Glucose POC Glucose 239 H 259 H 310 H Lactic Acid Calcium Phosphorus Magnesium AST ALT Alkaline Phosphatase C-Reactive Protein Total Protein Albumin Triglycerides Ur Specific [place] Urine Creatinine Crossmatch 06/19/21 06/19/21 06/19/21 04:00 04:00 04:50 WBC RBC 3.64 L Hgb 9.1 L Hct 29.1 L MCV MCH 25 L RDW 21.5 H Plt Count Lymph % (Auto) [place] % (Auto) Lymph # (Auto) [place] # (Auto) Seg Neutrophils % Seg Neuts % (Manual) Lymphocytes % (Manual) Monocytes % (Manual) Basophils % (Manual) Seg Neutrophils # Seg Neutrophils # Man Lymphocytes # (Manual) Monocytes # (Manual) PT INR APTT Fibrinogen D-Dimer ABG pH POC ABG pCO2 POC ABG pO2 ABG pO2 78.9 L ABG HCO3 ABG O2 Saturation ABG Base Excess -3.2 L ABG Hemoglobin 7.6 L ABG Oxyhemoglobin Oxyhemoglobin Sodium 148 H Potassium Chloride 114.9 H Carbon Dioxide 19 L BUN 59 H Creatinine Glucose 345 H POC Glucose Lactic Acid Calcium 8.1 L Phosphorus 4.60 H D Magnesium 2.40 H AST ALT Alkaline Phosphatase C-Reactive Protein Total Protein Albumin Triglycerides Ur Specific [place] Urine Creatinine Crossmatch 06/19/21 06/19/21 06/19/21 06:28 11:11 17:20 WBC RBC Hgb Hct MCV MCH RDW Plt Count Lymph % (Auto) [place] % (Auto) Lymph # (Auto) [place] # (Auto) Seg Neutrophils % Seg Neuts % (Manual) Lymphocytes % (Manual) Monocytes % (Manual) Basophils % (Manual) Seg Neutrophils # Seg Neutrophils # Man Lymphocytes # (Manual) Monocytes # (Manual) PT 29.7 H INR 2.57 H APTT Fibrinogen D-Dimer ABG pH POC ABG pCO2 POC ABG pO2 ABG pO2 ABG HCO3 ABG O2 Saturation ABG Base Excess ABG Hemoglobin ABG Oxyhemoglobin Oxyhemoglobin Sodium Potassium Chloride Carbon Dioxide BUN Creatinine Glucose POC Glucose 279 H 275 H Lactic Acid Calcium Phosphorus Magnesium AST ALT Alkaline Phosphatase C-Reactive Protein Total Protein Albumin Triglycerides Ur Specific [place] Urine Creatinine Crossmatch 06/19/21 06/19/21 06/19/21 18:30 19:20 23:27 WBC RBC Hgb 8.0 L Hct 25.0 L MCV MCH RDW Plt Count Lymph % (Auto) [place] % (Auto) Lymph # (Auto) [place] # (Auto) Seg Neutrophils % Seg Neuts % (Manual) Lymphocytes % (Manual) Monocytes % (Manual) Basophils % (Manual) Seg Neutrophils # Seg Neutrophils # Man Lymphocytes # (Manual) Monocytes # (Manual) PT INR APTT Fibrinogen D-Dimer ABG pH POC ABG pCO2 POC ABG pO2 ABG pO2 ABG HCO3 ABG O2 Saturation ABG Base Excess ABG Hemoglobin ABG Oxyhemoglobin Oxyhemoglobin Sodium Potassium Chloride Carbon Dioxide BUN Creatinine Glucose POC Glucose 279 H 290 H Lactic Acid Calcium Phosphorus Magnesium AST ALT Alkaline Phosphatase C-Reactive Protein Total Protein Albumin Triglycerides Ur Specific [place] Urine Creatinine Crossmatch 06/20/21 06/20/21 06/20/21 00:00 04:33 04:33 WBC 22.3 H RBC 3.31 L Hgb 7.4 L 8.5 L Hct 22.5 L 26.5 L MCV MCH 26 L RDW 21.5 H Plt Count Lymph % (Auto) [place] % (Auto) Lymph # (Auto) [place] # (Auto) Seg Neutrophils % Seg Neuts % (Manual) Lymphocytes % (Manual) Monocytes % (Manual) Basophils % (Manual) Seg Neutrophils # Seg Neutrophils # Man Lymphocytes # (Manual) Monocytes # (Manual) PT INR APTT Fibrinogen D-Dimer ABG pH POC ABG pCO2 POC ABG pO2 ABG pO2 ABG HCO3 ABG O2 Saturation ABG Base Excess ABG Hemoglobin ABG Oxyhemoglobin Oxyhemoglobin Sodium 148 H Potassium Chloride 114.2 H Carbon Dioxide BUN 70 H Creatinine 1.4 H Glucose 313 H POC Glucose Lactic Acid Calcium 8.2 L Phosphorus Magnesium 2.50 H AST ALT Alkaline Phosphatase C-Reactive Protein Total Protein Albumin Triglycerides Ur Specific [place] Urine Creatinine Crossmatch 06/20/21 06/20/21 06/20/21 04:33 05:27 11:21 WBC RBC Hgb Hct MCV MCH RDW Plt Count Lymph % (Auto) [place] % (Auto) Lymph # (Auto) [place] # (Auto) Seg Neutrophils % Seg Neuts % (Manual) Lymphocytes % (Manual) Monocytes % (Manual) Basophils % (Manual) Seg Neutrophils # Seg Neutrophils # Man Lymphocytes # (Manual) Monocytes # (Manual) PT 18.3 H INR 1.37 H APTT Fibrinogen D-Dimer ABG pH POC ABG pCO2 POC ABG pO2 ABG pO2 ABG HCO3 ABG O2 Saturation ABG Base Excess ABG Hemoglobin ABG Oxyhemoglobin Oxyhemoglobin Sodium Potassium Chloride Carbon Dioxide BUN Creatinine Glucose POC Glucose 288 H 306 H Lactic Acid Calcium Phosphorus Magnesium AST ALT Alkaline Phosphatase C-Reactive Protein Total Protein Albumin Triglycerides Ur Specific [place] Urine Creatinine Crossmatch 06/20/21 06/20/21 06/20/21 12:23 15:56 18:20 WBC RBC Hgb 8.2 L 8.1 L Hct 25.9 L 25.5 L MCV MCH RDW Plt Count Lymph % (Auto) [place] % (Auto) Lymph # (Auto) [place] # (Auto) Seg Neutrophils % Seg Neuts % (Manual) Lymphocytes % (Manual) Monocytes % (Manual) Basophils % (Manual) Seg Neutrophils # Seg Neutrophils # Man Lymphocytes # (Manual) Monocytes # (Manual) PT INR APTT Fibrinogen D-Dimer ABG pH POC ABG pCO2 POC ABG pO2 ABG pO2 ABG HCO3 ABG O2 Saturation ABG Base Excess ABG Hemoglobin ABG Oxyhemoglobin Oxyhemoglobin Sodium Potassium Chloride Carbon Dioxide BUN Creatinine Glucose POC Glucose 293 H Lactic Acid Calcium Phosphorus Magnesium AST ALT Alkaline Phosphatase C-Reactive Protein Total Protein Albumin Triglycerides Ur Specific [place] Urine Creatinine Crossmatch 06/20/21 06/21/21 06/21/21 23:11 04:20 04:42 WBC 15.1 H RBC 2.84 L Hgb 7.3 L Hct 23.1 L MCV MCH 26 L RDW 21.5 H Plt Count Lymph % (Auto) 3.5 L [place] % (Auto) 11.7 H Lymph # (Auto) 0.5 L [place] # (Auto) 1.8 H Seg Neutrophils % 84.7 H Seg Neuts % (Manual) Lymphocytes % (Manual) Monocytes % (Manual) Basophils % (Manual) Seg Neutrophils # 12.8 H Seg Neutrophils # Man Lymphocytes # (Manual) Monocytes # (Manual) PT INR APTT Fibrinogen D-Dimer ABG pH POC ABG pCO2 POC ABG pO2 ABG pO2 98.5 H ABG HCO3 ABG O2 Saturation ABG Base Excess ABG Hemoglobin 7.2 L ABG Oxyhemoglobin Oxyhemoglobin Sodium Potassium Chloride Carbon Dioxide BUN Creatinine Glucose POC Glucose 206 H Lactic Acid Calcium Phosphorus Magnesium AST ALT Alkaline Phosphatase C-Reactive Protein Total Protein Albumin Triglycerides Ur Specific [place] Urine Creatinine Crossmatch 06/21/21 06/21/21 06/21/21 04:42 05:08 11:06 WBC RBC Hgb Hct MCV MCH RDW Plt Count Lymph % (Auto) [place] % (Auto) Lymph # (Auto) [place] # (Auto) Seg Neutrophils % Seg Neuts % (Manual) Lymphocytes % (Manual) Monocytes % (Manual) Basophils % (Manual) Seg Neutrophils # Seg Neutrophils # Man Lymphocytes # (Manual) Monocytes # (Manual) PT INR APTT Fibrinogen D-Dimer ABG pH POC ABG pCO2 POC ABG pO2 ABG pO2 ABG HCO3 ABG O2 Saturation ABG Base Excess ABG Hemoglobin ABG Oxyhemoglobin Oxyhemoglobin Sodium 151 H Potassium Chloride 117.2 H Carbon Dioxide 21 L BUN 75 H Creatinine 1.6 H Glucose 216 H POC Glucose 190 H 204 H Lactic Acid Calcium 7.9 L Phosphorus Magnesium 2.60 H AST ALT Alkaline Phosphatase C-Reactive Protein Total Protein Albumin Triglycerides 254 H Ur Specific [place] Urine Creatinine Crossmatch 06/21/21 06/21/21 06/21/21 14:00 16:42 21:52 WBC RBC Hgb 7.1 L 7.2 L Hct 22.0 L 22.1 L MCV MCH RDW Plt Count Lymph % (Auto) [place] % (Auto) Lymph # (Auto) [place] # (Auto) Seg Neutrophils % Seg Neuts % (Manual) Lymphocytes % (Manual) Monocytes % (Manual) Basophils % (Manual) Seg Neutrophils # Seg Neutrophils # Man Lymphocytes # (Manual) Monocytes # (Manual) PT INR APTT Fibrinogen D-Dimer ABG pH POC ABG pCO2 POC ABG pO2 ABG pO2 ABG HCO3 ABG O2 Saturation ABG Base Excess ABG Hemoglobin ABG Oxyhemoglobin Oxyhemoglobin Sodium Potassium Chloride Carbon Dioxide BUN Creatinine Glucose POC Glucose 207 H Lactic Acid Calcium Phosphorus Magnesium AST ALT Alkaline Phosphatase C-Reactive Protein Total Protein Albumin Triglycerides Ur Specific [place] Urine Creatinine Crossmatch 06/21/21 06/22/21 06/22/21 23:29 04:30 04:30 WBC 16.8 H RBC 2.93 L Hgb 7.4 L Hct 23.9 L MCV MCH 25 L RDW 21.8 H Plt Count Lymph % (Auto) [place] % (Auto) Lymph # (Auto) [place] # (Auto) Seg Neutrophils % Seg Neuts % (Manual) Lymphocytes % (Manual) Monocytes % (Manual) Basophils % (Manual) Seg Neutrophils # Seg Neutrophils # Man Lymphocytes # (Manual) Monocytes # (Manual) PT INR APTT Fibrinogen D-Dimer ABG pH POC ABG pCO2 POC ABG pO2 ABG pO2 ABG HCO3 ABG O2 Saturation ABG Base Excess ABG Hemoglobin ABG Oxyhemoglobin Oxyhemoglobin Sodium 151 H Potassium Chloride 118.7 H Carbon Dioxide BUN 57 H Creatinine Glucose 238 H POC Glucose 273 H Lactic Acid Calcium 8.0 L Phosphorus Magnesium 2.70 H AST ALT Alkaline Phosphatase C-Reactive Protein Total Protein Albumin Triglycerides Ur Specific [place] Urine Creatinine Crossmatch 06/22/21 06/22/21 06/22/21 05:17 11:31 14:20 WBC RBC Hgb 7.4 L Hct 22.5 L MCV MCH RDW Plt Count Lymph % (Auto) [place] % (Auto) Lymph # (Auto) [place] # (Auto) Seg Neutrophils % Seg Neuts % (Manual) Lymphocytes % (Manual) Monocytes % (Manual) Basophils % (Manual) Seg Neutrophils # Seg Neutrophils # Man Lymphocytes # (Manual) Monocytes # (Manual) PT INR APTT Fibrinogen D-Dimer ABG pH POC ABG pCO2 POC ABG pO2 ABG pO2 ABG HCO3 ABG O2 Saturation ABG Base Excess ABG Hemoglobin ABG Oxyhemoglobin Oxyhemoglobin Sodium Potassium Chloride Carbon Dioxide BUN Creatinine Glucose POC Glucose 214 H 214 H Lactic Acid Calcium Phosphorus Magnesium AST ALT Alkaline Phosphatase C-Reactive Protein Total Protein Albumin Triglycerides Ur Specific [place] Urine Creatinine Crossmatch 06/22/21 06/22/21 06/23/21 17:18 23:47 05:33 WBC RBC Hgb Hct MCV MCH RDW Plt Count Lymph % (Auto) [place] % (Auto) Lymph # (Auto) [place] # (Auto) Seg Neutrophils % Seg Neuts % (Manual) Lymphocytes % (Manual) Monocytes % (Manual) Basophils % (Manual) Seg Neutrophils # Seg Neutrophils # Man Lymphocytes # (Manual) Monocytes # (Manual) PT INR APTT Fibrinogen D-Dimer ABG pH POC ABG pCO2 POC ABG pO2 ABG pO2 ABG HCO3 ABG O2 Saturation ABG Base Excess ABG Hemoglobin ABG Oxyhemoglobin Oxyhemoglobin Sodium Potassium Chloride Carbon Dioxide BUN Creatinine Glucose POC Glucose 238 H 227 H 202 H Lactic Acid Calcium Phosphorus Magnesium AST ALT Alkaline Phosphatase C-Reactive Protein Total Protein Albumin Triglycerides Ur Specific [place] Urine Creatinine Crossmatch 06/23/21 06/23/21 06/23/21 10:04 10:04 11:06 WBC 20.3 H RBC 2.71 L Hgb 7.3 L Hct 21.8 L MCV MCH 27 L RDW 22.1 H Plt Count Lymph % (Auto) [place] % (Auto) Lymph # (Auto) [place] # (Auto) Seg Neutrophils % Seg Neuts % (Manual) Lymphocytes % (Manual) Monocytes % (Manual) Basophils % (Manual) Seg Neutrophils # Seg Neutrophils # Man Lymphocytes # (Manual) Monocytes # (Manual) PT INR APTT Fibrinogen D-Dimer ABG pH POC ABG pCO2 POC ABG pO2 ABG pO2 ABG HCO3 ABG O2 Saturation ABG Base Excess ABG Hemoglobin ABG Oxyhemoglobin Oxyhemoglobin Sodium 151 H Potassium 3.2 L Chloride 116.9 H Carbon Dioxide BUN 40 H Creatinine Glucose 208 H POC Glucose 204 H Lactic Acid Calcium 8.0 L Phosphorus 1.80 L D Magnesium AST ALT Alkaline Phosphatase C-Reactive Protein Total Protein Albumin Triglycerides Ur Specific [place] Urine Creatinine Crossmatch 06/23/21 06/23/21 06/24/21 16:11 23:47 04:00 WBC 16.9 H RBC 2.49 L Hgb 6.6 L Hct 20.3 L MCV MCH 26 L RDW 22.6 H Plt Count Lymph % (Auto) [place] % (Auto) Lymph # (Auto) [place] # (Auto) Seg Neutrophils % Seg Neuts % (Manual) Lymphocytes % (Manual) Monocytes % (Manual) Basophils % (Manual) Seg Neutrophils # Seg Neutrophils # Man Lymphocytes # (Manual) Monocytes # (Manual) PT INR APTT Fibrinogen D-Dimer ABG pH POC ABG pCO2 POC ABG pO2 ABG pO2 ABG HCO3 ABG O2 Saturation ABG Base Excess ABG Hemoglobin ABG Oxyhemoglobin Oxyhemoglobin Sodium Potassium Chloride Carbon Dioxide BUN Creatinine Glucose POC Glucose 228 H 189 H Lactic Acid Calcium Phosphorus Magnesium AST ALT Alkaline Phosphatase C-Reactive Protein Total Protein Albumin Triglycerides Ur Specific [place] Urine Creatinine Crossmatch 06/24/21 06/24/21 06/24/21 04:00 05:43 06:40 WBC RBC Hgb Hct MCV MCH RDW Plt Count Lymph % (Auto) [place] % (Auto) Lymph # (Auto) [place] # (Auto) Seg Neutrophils % Seg Neuts % (Manual) Lymphocytes % (Manual) Monocytes % (Manual) Basophils % (Manual) Seg Neutrophils # Seg Neutrophils # Man Lymphocytes # (Manual) Monocytes # (Manual) PT INR APTT Fibrinogen D-Dimer ABG pH POC ABG pCO2 POC ABG pO2 ABG pO2 ABG HCO3 ABG O2 Saturation ABG Base Excess ABG Hemoglobin ABG Oxyhemoglobin Oxyhemoglobin Sodium 148 H Potassium 3.2 L Chloride 115.6 H Carbon Dioxide BUN 35 H Creatinine Glucose 153 H POC Glucose 134 H Lactic Acid Calcium 7.9 L Phosphorus 2.40 L D Magnesium AST ALT Alkaline Phosphatase C-Reactive Protein Total Protein Albumin Triglycerides Ur Specific [place] Urine Creatinine Crossmatch See Detail 06/24/21 06/24/21 06/24/21 11:08 16:47 21:49 WBC RBC Hgb Hct MCV MCH RDW Plt Count Lymph % (Auto) [place] % (Auto) Lymph # (Auto) [place] # (Auto) Seg Neutrophils % Seg Neuts % (Manual) Lymphocytes % (Manual) Monocytes % (Manual) Basophils % (Manual) Seg Neutrophils # Seg Neutrophils # Man Lymphocytes # (Manual) Monocytes # (Manual) PT INR APTT Fibrinogen D-Dimer ABG pH POC ABG pCO2 POC ABG pO2 ABG pO2 ABG HCO3 ABG O2 Saturation ABG Base Excess ABG Hemoglobin ABG Oxyhemoglobin Oxyhemoglobin Sodium Potassium Chloride Carbon Dioxide BUN Creatinine Glucose POC Glucose 153 H 201 H 132 H Lactic Acid Calcium Phosphorus Magnesium AST ALT Alkaline Phosphatase C-Reactive Protein Total Protein Albumin Triglycerides Ur Specific [place] Urine Creatinine Crossmatch 06/24/21 06/25/21 06/25/21 23:24 05:30 09:00 WBC RBC Hgb 8.3 L Hct 27.0 L MCV MCH RDW Plt Count Lymph % (Auto) [place] % (Auto) Lymph # (Auto) [place] # (Auto) Seg Neutrophils % Seg Neuts % (Manual) Lymphocytes % (Manual) Monocytes % (Manual) Basophils % (Manual) Seg Neutrophils # Seg Neutrophils # Man Lymphocytes # (Manual) Monocytes # (Manual) PT INR APTT Fibrinogen D-Dimer ABG pH POC ABG pCO2 POC ABG pO2 ABG pO2 ABG HCO3 ABG O2 Saturation ABG Base Excess ABG Hemoglobin ABG Oxyhemoglobin Oxyhemoglobin Sodium Potassium Chloride Carbon Dioxide BUN Creatinine Glucose POC Glucose 170 H 151 H Lactic Acid Calcium Phosphorus Magnesium AST ALT Alkaline Phosphatase C-Reactive Protein Total Protein Albumin Triglycerides Ur Specific [place] Urine Creatinine Crossmatch 06/25/21 06/25/21 06/25/21 11:29 14:24 16:48 WBC RBC Hgb 8.5 L Hct 27.5 L MCV MCH RDW Plt Count Lymph % (Auto) [place] % (Auto) Lymph # (Auto) [place] # (Auto) Seg Neutrophils % Seg Neuts % (Manual) Lymphocytes % (Manual) Monocytes % (Manual) Basophils % (Manual) Seg Neutrophils # Seg Neutrophils # Man Lymphocytes # (Manual) Monocytes # (Manual) PT INR APTT Fibrinogen D-Dimer ABG pH POC ABG pCO2 POC ABG pO2 ABG pO2 ABG HCO3 ABG O2 Saturation ABG Base Excess ABG Hemoglobin ABG Oxyhemoglobin Oxyhemoglobin Sodium Potassium Chloride Carbon Dioxide BUN Creatinine Glucose POC Glucose 189 H 224 H Lactic Acid Calcium Phosphorus Magnesium AST ALT Alkaline Phosphatase C-Reactive Protein Total Protein Albumin Triglycerides Ur Specific [place] Urine Creatinine Crossmatch 06/25/21 06/25/21 06/25/21 23:39 Unknown Unknown WBC 16.5 H RBC 2.90 L Hgb 8.0 L Hct 23.8 L MCV MCH RDW 22.8 H Plt Count Lymph % (Auto) [place] % (Auto) Lymph # (Auto) [place] # (Auto) Seg Neutrophils % Seg Neuts % (Manual) Lymphocytes % (Manual) Monocytes % (Manual) Basophils % (Manual) Seg Neutrophils # Seg Neutrophils # Man Lymphocytes # (Manual) Monocytes # (Manual) PT INR APTT Fibrinogen D-Dimer ABG pH POC ABG pCO2 POC ABG pO2 ABG pO2 ABG HCO3 ABG O2 Saturation ABG Base Excess ABG Hemoglobin ABG Oxyhemoglobin Oxyhemoglobin Sodium 149 H Potassium Chloride 115.6 H Carbon Dioxide BUN 28 H Creatinine Glucose 157 H POC Glucose 187 H Lactic Acid Calcium 8.0 L Phosphorus Magnesium AST ALT Alkaline Phosphatase C-Reactive Protein Total Protein Albumin Triglycerides Ur Specific [place] Urine Creatinine Crossmatch 06/26/21 06/26/21 06/26/21 05:22 05:29 05:29 WBC 16.2 H RBC 3.03 L Hgb 8.0 L Hct 25.1 L MCV MCH 26 L RDW 23.2 H Plt Count Lymph % (Auto) [place] % (Auto) Lymph # (Auto) [place] # (Auto) Seg Neutrophils % Seg Neuts % (Manual) Lymphocytes % (Manual) Monocytes % (Manual) Basophils % (Manual) Seg Neutrophils # Seg Neutrophils # Man Lymphocytes # (Manual) Monocytes # (Manual) PT INR APTT Fibrinogen D-Dimer ABG pH POC ABG pCO2 POC ABG pO2 ABG pO2 ABG HCO3 ABG O2 Saturation ABG Base Excess ABG Hemoglobin ABG Oxyhemoglobin Oxyhemoglobin Sodium 150 H Potassium Chloride 114.8 H Carbon Dioxide BUN 29 H Creatinine Glucose 229 H POC Glucose 211 H Lactic Acid Calcium 8.2 L Phosphorus Magnesium AST ALT Alkaline Phosphatase C-Reactive Protein Total Protein Albumin Triglycerides Ur Specific [place] Urine Creatinine Crossmatch 06/26/21 06/26/21 06/26/21 11:05 15:59 22:00 WBC RBC Hgb Hct MCV MCH RDW Plt Count Lymph % (Auto) [place] % (Auto) Lymph # (Auto) [place] # (Auto) Seg Neutrophils % Seg Neuts % (Manual) Lymphocytes % (Manual) Monocytes % (Manual) Basophils % (Manual) Seg Neutrophils # Seg Neutrophils # Man Lymphocytes # (Manual) Monocytes # (Manual) PT INR APTT Fibrinogen D-Dimer ABG pH POC ABG pCO2 POC ABG pO2 ABG pO2 ABG HCO3 ABG O2 Saturation ABG Base Excess ABG Hemoglobin ABG Oxyhemoglobin Oxyhemoglobin Sodium Potassium Chloride Carbon Dioxide BUN Creatinine Glucose POC Glucose 213 H 222 H 161 H Lactic Acid Calcium Phosphorus Magnesium AST ALT Alkaline Phosphatase C-Reactive Protein Total Protein Albumin Triglycerides Ur Specific [place] Urine Creatinine Crossmatch 06/26/21 06/27/21 06/27/21 23:24 04:15 04:15 WBC 14.3 H RBC 2.96 L Hgb 8.1 L Hct 24.6 L MCV MCH 27 L RDW 23.0 H Plt Count Lymph % (Auto) [place] % (Auto) Lymph # (Auto) [place] # (Auto) Seg Neutrophils % Seg Neuts % (Manual) Lymphocytes % (Manual) Monocytes % (Manual) Basophils % (Manual) Seg Neutrophils # Seg Neutrophils # Man Lymphocytes # (Manual) Monocytes # (Manual) PT INR APTT Fibrinogen D-Dimer ABG pH POC ABG pCO2 POC ABG pO2 ABG pO2 ABG HCO3 ABG O2 Saturation ABG Base Excess ABG Hemoglobin ABG Oxyhemoglobin Oxyhemoglobin Sodium 150 H Potassium Chloride 113.8 H Carbon Dioxide BUN 26 H Creatinine Glucose 246 H POC Glucose 164 H Lactic Acid Calcium 7.8 L Phosphorus Magnesium AST ALT Alkaline Phosphatase C-Reactive Protein Total Protein Albumin Triglycerides Ur Specific [place] Urine Creatinine Crossmatch 06/27/21 06/27/21 06/27/21 05:44 11:07 16:06 WBC RBC Hgb Hct MCV MCH RDW Plt Count Lymph % (Auto) [place] % (Auto) Lymph # (Auto) [place] # (Auto) Seg Neutrophils % Seg Neuts % (Manual) Lymphocytes % (Manual) Monocytes % (Manual) Basophils % (Manual) Seg Neutrophils # Seg Neutrophils # Man Lymphocytes # (Manual) Monocytes # (Manual) PT INR APTT Fibrinogen D-Dimer ABG pH POC ABG pCO2 POC ABG pO2 ABG pO2 ABG HCO3 ABG O2 Saturation ABG Base Excess ABG Hemoglobin ABG Oxyhemoglobin Oxyhemoglobin Sodium Potassium Chloride Carbon Dioxide BUN Creatinine Glucose POC Glucose 226 H 204 H 224 H Lactic Acid Calcium Phosphorus Magnesium AST ALT Alkaline Phosphatase C-Reactive Protein Total Protein Albumin Triglycerides Ur Specific [place] Urine Creatinine Crossmatch 06/27/21 06/28/21 06/28/21 23:49 04:00 04:00 WBC 15.4 H RBC 3.05 L Hgb 8.2 L Hct 25.0 L MCV MCH 27 L RDW 22.6 H Plt Count Lymph % (Auto) [place] % (Auto) Lymph # (Auto) [place] # (Auto) Seg Neutrophils % Seg Neuts % (Manual) Lymphocytes % (Manual) Monocytes % (Manual) Basophils % (Manual) Seg Neutrophils # Seg Neutrophils # Man Lymphocytes # (Manual) Monocytes # (Manual) PT INR APTT Fibrinogen D-Dimer ABG pH POC ABG pCO2 POC ABG pO2 ABG pO2 ABG HCO3 ABG O2 Saturation ABG Base Excess ABG Hemoglobin ABG Oxyhemoglobin Oxyhemoglobin Sodium 152 H Potassium 3.0 L Chloride 114.9 H Carbon Dioxide BUN 24 H Creatinine Glucose 158 H POC Glucose 195 H Lactic Acid Calcium 8.1 L Phosphorus Magnesium AST ALT Alkaline Phosphatase C-Reactive Protein Total Protein Albumin Triglycerides Ur Specific [place] Urine Creatinine Crossmatch 06/28/21 06/28/21 06/28/21 05:05 11:47 17:21 WBC RBC Hgb Hct MCV MCH RDW Plt Count Lymph % (Auto) [place] % (Auto) Lymph # (Auto) [place] # (Auto) Seg Neutrophils % Seg Neuts % (Manual) Lymphocytes % (Manual) Monocytes % (Manual) Basophils % (Manual) Seg Neutrophils # Seg Neutrophils # Man Lymphocytes # (Manual) Monocytes # (Manual) PT INR APTT Fibrinogen D-Dimer ABG pH POC ABG pCO2 POC ABG pO2 ABG pO2 ABG HCO3 ABG O2 Saturation ABG Base Excess ABG Hemoglobin ABG Oxyhemoglobin Oxyhemoglobin Sodium Potassium Chloride Carbon Dioxide BUN Creatinine Glucose POC Glucose 121 H 164 H 166 H Lactic Acid Calcium Phosphorus Magnesium AST ALT Alkaline Phosphatase C-Reactive Protein Total Protein Albumin Triglycerides Ur Specific [place] Urine Creatinine Crossmatch 06/28/21 06/28/21 06/29/21 18:14 21:54 00:55 WBC RBC Hgb Hct MCV MCH RDW Plt Count Lymph % (Auto) [place] % (Auto) Lymph # (Auto) [place] # (Auto) Seg Neutrophils % Seg Neuts % (Manual) Lymphocytes % (Manual) Monocytes % (Manual) Basophils % (Manual) Seg Neutrophils # Seg Neutrophils # Man Lymphocytes # (Manual) Monocytes # (Manual) PT INR APTT Fibrinogen D-Dimer ABG pH POC ABG pCO2 POC ABG pO2 ABG pO2 ABG HCO3 ABG O2 Saturation ABG Base Excess ABG Hemoglobin ABG Oxyhemoglobin Oxyhemoglobin Sodium Potassium Chloride Carbon Dioxide BUN Creatinine Glucose POC Glucose 150 H 148 H 176 H Lactic Acid Calcium Phosphorus Magnesium AST ALT Alkaline Phosphatase C-Reactive Protein Total Protein Albumin Triglycerides Ur Specific [place] Urine Creatinine Crossmatch 06/29/21 06/29/21 06/29/21 04:00 04:00 05:20 WBC 15.3 H RBC 3.04 L Hgb 8.0 L Hct 25.0 L MCV MCH 26 L RDW 22.3 H Plt Count Lymph % (Auto) [place] % (Auto) Lymph # (Auto) [place] # (Auto) Seg Neutrophils % Seg Neuts % (Manual) Lymphocytes % (Manual) Monocytes % (Manual) Basophils % (Manual) Seg Neutrophils # Seg Neutrophils # Man Lymphocytes # (Manual) Monocytes # (Manual) PT INR APTT Fibrinogen D-Dimer ABG pH POC ABG pCO2 POC ABG pO2 ABG pO2 ABG HCO3 ABG O2 Saturation ABG Base Excess ABG Hemoglobin ABG Oxyhemoglobin Oxyhemoglobin Sodium Potassium 3.1 L Chloride 108.7 H Carbon Dioxide BUN 20 H Creatinine Glucose 194 H POC Glucose 185 H Lactic Acid Calcium 8.0 L Phosphorus Magnesium AST ALT Alkaline Phosphatase C-Reactive Protein Total Protein Albumin Triglycerides Ur Specific [place] Urine Creatinine Crossmatch 06/29/21 06/29/21 06/30/21 12:18 17:20 00:49 WBC RBC Hgb Hct MCV MCH RDW Plt Count Lymph % (Auto) [place] % (Auto) Lymph # (Auto) [place] # (Auto) Seg Neutrophils % Seg Neuts % (Manual) Lymphocytes % (Manual) Monocytes % (Manual) Basophils % (Manual) Seg Neutrophils # Seg Neutrophils # Man Lymphocytes # (Manual) Monocytes # (Manual) PT INR APTT Fibrinogen D-Dimer ABG pH POC ABG pCO2 POC ABG pO2 ABG pO2 ABG HCO3 ABG O2 Saturation ABG Base Excess ABG Hemoglobin ABG Oxyhemoglobin Oxyhemoglobin Sodium Potassium Chloride Carbon Dioxide BUN Creatinine Glucose POC Glucose 135 H 185 H 156 H Lactic Acid Calcium Phosphorus Magnesium AST ALT Alkaline Phosphatase C-Reactive Protein Total Protein Albumin Triglycerides Ur Specific [place] Urine Creatinine Crossmatch 06/30/21 06/30/21 06/30/21 04:25 04:25 08:14 WBC 13.0 H RBC 3.19 L Hgb 8.2 L Hct 26.2 L MCV MCH 26 L RDW 22.3 H Plt Count Lymph % (Auto) [place] % (Auto) Lymph # (Auto) [place] # (Auto) Seg Neutrophils % Seg Neuts % (Manual) 81.0 H Lymphocytes % (Manual) 10.0 L Monocytes % (Manual) 8.0 H Basophils % (Manual) Seg Neutrophils # Seg Neutrophils # Man 10.5 H Lymphocytes # (Manual) Monocytes # (Manual) 1.0 H PT INR APTT Fibrinogen D-Dimer ABG pH POC ABG pCO2 POC ABG pO2 ABG pO2 ABG HCO3 ABG O2 Saturation ABG Base Excess ABG Hemoglobin ABG Oxyhemoglobin Oxyhemoglobin Sodium Potassium 3.0 L Chloride Carbon Dioxide BUN 20 H Creatinine Glucose 104 H POC Glucose 119 H Lactic Acid Calcium 8.3 L Phosphorus Magnesium AST ALT Alkaline Phosphatase C-Reactive Protein Total Protein Albumin Triglycerides Ur Specific [place] Urine Creatinine Crossmatch 06/30/21 06/30/21 06/30/21 11:36 16:24 22:44 WBC RBC Hgb Hct MCV MCH RDW Plt Count Lymph % (Auto) [place] % (Auto) Lymph # (Auto) [place] # (Auto) Seg Neutrophils % Seg Neuts % (Manual) Lymphocytes % (Manual) Monocytes % (Manual) Basophils % (Manual) Seg Neutrophils # Seg Neutrophils # Man Lymphocytes # (Manual) Monocytes # (Manual) PT INR APTT Fibrinogen D-Dimer ABG pH POC ABG pCO2 POC ABG pO2 ABG pO2 ABG HCO3 ABG O2 Saturation ABG Base Excess ABG Hemoglobin ABG Oxyhemoglobin Oxyhemoglobin Sodium Potassium Chloride Carbon Dioxide BUN Creatinine Glucose POC Glucose 154 H 208 H 174 H Lactic Acid Calcium Phosphorus Magnesium AST ALT Alkaline Phosphatase C-Reactive Protein Total Protein Albumin Triglycerides Ur Specific [place] Urine Creatinine Crossmatch 07/01/21 07/01/21 07/01/21 05:29 05:29 05:54 WBC 11.9 H RBC 3.00 L Hgb 8.1 L Hct 24.4 L MCV MCH 27 L RDW 21.7 H Plt Count Lymph % (Auto) [place] % (Auto) Lymph # (Auto) [place] # (Auto) Seg Neutrophils % Seg Neuts % (Manual) Lymphocytes % (Manual) Monocytes % (Manual) Basophils % (Manual) Seg Neutrophils # Seg Neutrophils # Man Lymphocytes # (Manual) Monocytes # (Manual) PT INR APTT Fibrinogen D-Dimer ABG pH POC ABG pCO2 POC ABG pO2 ABG pO2 ABG HCO3 ABG O2 Saturation ABG Base Excess ABG Hemoglobin ABG Oxyhemoglobin Oxyhemoglobin Sodium Potassium Chloride Carbon Dioxide BUN Creatinine Glucose 177 H POC Glucose 170 H Lactic Acid Calcium Phosphorus Magnesium AST ALT Alkaline Phosphatase C-Reactive Protein Total Protein Albumin Triglycerides Ur Specific [place] Urine Creatinine Crossmatch 07/01/21 07/02/21 07/02/21 10:54 05:05 10:18 WBC RBC Hgb Hct MCV MCH RDW Plt Count Lymph % (Auto) [place] % (Auto) Lymph # (Auto) [place] # (Auto) Seg Neutrophils % Seg Neuts % (Manual) Lymphocytes % (Manual) Monocytes % (Manual) Basophils % (Manual) Seg Neutrophils # Seg Neutrophils # Man Lymphocytes # (Manual) Monocytes # (Manual) PT INR APTT Fibrinogen D-Dimer ABG pH 7.488 H POC ABG pCO2 POC ABG pO2 ABG pO2 97.2 H ABG HCO3 27.1 H ABG O2 Saturation ABG Base Excess 3.5 H ABG Hemoglobin 7.9 L ABG Oxyhemoglobin Oxyhemoglobin Sodium Potassium Chloride Carbon Dioxide BUN Creatinine Glucose POC Glucose 184 H 182 H Lactic Acid Calcium Phosphorus Magnesium AST ALT Alkaline Phosphatase C-Reactive Protein Total Protein Albumin Triglycerides Ur Specific [place] Urine Creatinine Crossmatch 07/02/21 07/02/21 07/02/21 12:14 16:18 22:27 WBC RBC Hgb Hct MCV MCH RDW Plt Count Lymph % (Auto) [place] % (Auto) Lymph # (Auto) [place] # (Auto) Seg Neutrophils % Seg Neuts % (Manual) Lymphocytes % (Manual) Monocytes % (Manual) Basophils % (Manual) Seg Neutrophils # Seg Neutrophils # Man Lymphocytes # (Manual) Monocytes # (Manual) PT INR APTT Fibrinogen D-Dimer ABG pH 7.199 L* POC ABG pCO2 POC ABG pO2 ABG pO2 104.5 H ABG HCO3 30.3 H ABG O2 Saturation ABG Base Excess ABG Hemoglobin 9.8 L ABG Oxyhemoglobin Oxyhemoglobin 94.6 L Sodium Potassium Chloride Carbon Dioxide BUN Creatinine Glucose POC Glucose 184 H 194 H Lactic Acid Calcium Phosphorus Magnesium AST ALT Alkaline Phosphatase C-Reactive Protein Total Protein Albumin Triglycerides Ur Specific [place] Urine Creatinine Crossmatch 07/03/21 07/03/21 07/03/21 09:47 10:44 11:24 WBC RBC 3.01 L Hgb 8.3 L Hct 24.3 L MCV MCH RDW 21.7 H Plt Count Lymph % (Auto) 8.4 L [place] % (Auto) Lymph # (Auto) 0.8 L [place] # (Auto) Seg Neutrophils % 80.6 H Seg Neuts % (Manual) Lymphocytes % (Manual) Monocytes % (Manual) Basophils % (Manual) Seg Neutrophils # Seg Neutrophils # Man Lymphocytes # (Manual) Monocytes # (Manual) PT INR APTT Fibrinogen D-Dimer ABG pH POC ABG pCO2 POC ABG pO2 ABG pO2 ABG HCO3 ABG O2 Saturation ABG Base Excess ABG Hemoglobin ABG Oxyhemoglobin Oxyhemoglobin Sodium Potassium 3.0 L Chloride Carbon Dioxide BUN Creatinine Glucose 200 H POC Glucose 180 H Lactic Acid Calcium 8.3 L Phosphorus Magnesium AST ALT Alkaline Phosphatase C-Reactive Protein Total Protein Albumin Triglycerides Ur Specific [place] Urine Creatinine Crossmatch 07/03/21 07/03/21 07/03/21 16:34 22:14 22:15 WBC RBC Hgb Hct MCV MCH RDW Plt Count Lymph % (Auto) [place] % (Auto) Lymph # (Auto) [place] # (Auto) Seg Neutrophils % Seg Neuts % (Manual) Lymphocytes % (Manual) Monocytes % (Manual) Basophils % (Manual) Seg Neutrophils # Seg Neutrophils # Man Lymphocytes # (Manual) Monocytes # (Manual) PT INR APTT Fibrinogen D-Dimer ABG pH POC ABG pCO2 POC ABG pO2 ABG pO2 ABG HCO3 ABG O2 Saturation ABG Base Excess ABG Hemoglobin ABG Oxyhemoglobin Oxyhemoglobin Sodium Potassium Chloride Carbon Dioxide BUN Creatinine Glucose POC Glucose 165 H 174 H 180 H Lactic Acid Calcium Phosphorus Magnesium AST ALT Alkaline Phosphatase C-Reactive Protein Total Protein Albumin Triglycerides Ur Specific [place] Urine Creatinine Crossmatch 07/04/21 07/04/21 07/04/21 00:28 01:44 05:07 WBC RBC Hgb Hct MCV MCH RDW Plt Count Lymph % (Auto) [place] % (Auto) Lymph # (Auto) [place] # (Auto) Seg Neutrophils % Seg Neuts % (Manual) Lymphocytes % (Manual) Monocytes % (Manual) Basophils % (Manual) Seg Neutrophils # Seg Neutrophils # Man Lymphocytes # (Manual) Monocytes # (Manual) PT INR APTT Fibrinogen D-Dimer ABG pH POC ABG pCO2 POC ABG pO2 ABG pO2 107.7 H ABG HCO3 26.7 H ABG O2 Saturation ABG Base Excess ABG Hemoglobin 7.5 L ABG Oxyhemoglobin Oxyhemoglobin Sodium Potassium Chloride Carbon Dioxide BUN Creatinine Glucose POC Glucose 246 H 179 H Lactic Acid Calcium Phosphorus Magnesium AST ALT Alkaline Phosphatase C-Reactive Protein Total Protein Albumin Triglycerides Ur Specific [place] Urine Creatinine Crossmatch 07/04/21 07/04/21 07/04/21 05:13 05:13 10:52 WBC RBC 3.12 L Hgb 8.5 L Hct 25.2 L MCV MCH 27 L RDW 21.3 H Plt Count Lymph % (Auto) 6.1 L [place] % (Auto) Lymph # (Auto) 0.6 L [place] # (Auto) Seg Neutrophils % 85.0 H Seg Neuts % (Manual) Lymphocytes % (Manual) Monocytes % (Manual) Basophils % (Manual) Seg Neutrophils # 8.0 H Seg Neutrophils # Man Lymphocytes # (Manual) Monocytes # (Manual) PT INR APTT Fibrinogen D-Dimer ABG pH POC ABG pCO2 POC ABG pO2 ABG pO2 ABG HCO3 ABG O2 Saturation ABG Base Excess ABG Hemoglobin ABG Oxyhemoglobin Oxyhemoglobin Sodium Potassium 3.4 L Chloride Carbon Dioxide BUN Creatinine Glucose 205 H POC Glucose 146 H Lactic Acid Calcium Phosphorus Magnesium AST ALT Alkaline Phosphatase C-Reactive Protein Total Protein Albumin Triglycerides Ur Specific [place] Urine Creatinine Crossmatch 07/04/21 07/04/21 07/05/21 16:22 23:52 04:38 WBC RBC Hgb Hct MCV MCH RDW Plt Count Lymph % (Auto) [place] % (Auto) Lymph # (Auto) [place] # (Auto) Seg Neutrophils % Seg Neuts % (Manual) Lymphocytes % (Manual) Monocytes % (Manual) Basophils % (Manual) Seg Neutrophils # Seg Neutrophils # Man Lymphocytes # (Manual) Monocytes # (Manual) PT INR APTT Fibrinogen D-Dimer ABG pH POC ABG pCO2 POC ABG pO2 ABG pO2 ABG HCO3 ABG O2 Saturation ABG Base Excess ABG Hemoglobin ABG Oxyhemoglobin Oxyhemoglobin Sodium Potassium 3.0 L Chloride Carbon Dioxide BUN 18 H Creatinine Glucose 174 H POC Glucose 154 H 193 H Lactic Acid Calcium Phosphorus 2.20 L Magnesium AST ALT Alkaline Phosphatase C-Reactive Protein Total Protein Albumin Triglycerides Ur Specific [place] Urine Creatinine Crossmatch 07/05/21 07/05/21 07/05/21 04:38 05:15 12:35 WBC RBC 2.95 L Hgb 7.8 L Hct 23.9 L MCV MCH 27 L RDW 21.0 H Plt Count Lymph % (Auto) [place] % (Auto) Lymph # (Auto) [place] # (Auto) Seg Neutrophils % Seg Neuts % (Manual) Lymphocytes % (Manual) Monocytes % (Manual) Basophils % (Manual) Seg Neutrophils # Seg Neutrophils # Man Lymphocytes # (Manual) Monocytes # (Manual) PT INR APTT Fibrinogen D-Dimer ABG pH POC ABG pCO2 POC ABG pO2 ABG pO2 ABG HCO3 ABG O2 Saturation ABG Base Excess ABG Hemoglobin ABG Oxyhemoglobin Oxyhemoglobin Sodium Potassium Chloride Carbon Dioxide BUN Creatinine Glucose POC Glucose 163 H 121 H Lactic Acid Calcium Phosphorus Magnesium AST ALT Alkaline Phosphatase C-Reactive Protein Total Protein Albumin Triglycerides Ur Specific [place] Urine Creatinine Crossmatch 07/05/21 07/05/21 07/05/21 18:27 21:05 23:11 WBC RBC Hgb Hct MCV MCH RDW Plt Count Lymph % (Auto) [place] % (Auto) Lymph # (Auto) [place] # (Auto) Seg Neutrophils % Seg Neuts % (Manual) Lymphocytes % (Manual) Monocytes % (Manual) Basophils % (Manual) Seg Neutrophils # Seg Neutrophils # Man Lymphocytes # (Manual) Monocytes # (Manual) PT INR APTT Fibrinogen D-Dimer ABG pH POC ABG pCO2 POC ABG pO2 ABG pO2 ABG HCO3 ABG O2 Saturation ABG Base Excess ABG Hemoglobin ABG Oxyhemoglobin Oxyhemoglobin Sodium Potassium Chloride Carbon Dioxide BUN Creatinine Glucose POC Glucose 183 H 170 H 184 H Lactic Acid Calcium Phosphorus Magnesium AST ALT Alkaline Phosphatase C-Reactive Protein Total Protein Albumin Triglycerides Ur Specific [place] Urine Creatinine Crossmatch 07/06/21 07/06/21 07/06/21 04:39 05:13 12:12 WBC RBC Hgb Hct MCV MCH RDW Plt Count Lymph % (Auto) [place] % (Auto) Lymph # (Auto) [place] # (Auto) Seg Neutrophils % Seg Neuts % (Manual) Lymphocytes % (Manual) Monocytes % (Manual) Basophils % (Manual) Seg Neutrophils # Seg Neutrophils # Man Lymphocytes # (Manual) Monocytes # (Manual) PT INR APTT Fibrinogen D-Dimer ABG pH POC ABG pCO2 POC ABG pO2 ABG pO2 ABG HCO3 ABG O2 Saturation ABG Base Excess ABG Hemoglobin ABG Oxyhemoglobin Oxyhemoglobin Sodium Potassium 3.4 L Chloride Carbon Dioxide BUN Creatinine Glucose 180 H POC Glucose 183 H 153 H Lactic Acid Calcium Phosphorus Magnesium AST ALT Alkaline Phosphatase C-Reactive Protein Total Protein Albumin Triglycerides Ur Specific [place] Urine Creatinine Crossmatch 07/06/21 07/06/21 07/07/21 17:30 21:44 00:22 WBC RBC Hgb Hct MCV MCH RDW Plt Count Lymph % (Auto) [place] % (Auto) Lymph # (Auto) [place] # (Auto) Seg Neutrophils % Seg Neuts % (Manual) Lymphocytes % (Manual) Monocytes % (Manual) Basophils % (Manual) Seg Neutrophils # Seg Neutrophils # Man Lymphocytes # (Manual) Monocytes # (Manual) PT INR APTT Fibrinogen D-Dimer ABG pH POC ABG pCO2 POC ABG pO2 ABG pO2 ABG HCO3 ABG O2 Saturation ABG Base Excess ABG Hemoglobin ABG Oxyhemoglobin Oxyhemoglobin Sodium Potassium Chloride Carbon Dioxide BUN Creatinine Glucose POC Glucose 166 H 155 H 188 H Lactic Acid Calcium Phosphorus Magnesium AST ALT Alkaline Phosphatase C-Reactive Protein Total Protein Albumin Triglycerides Ur Specific [place] Urine Creatinine Crossmatch 07/07/21 07/07/21 07/07/21 04:10 05:48 07:39 WBC RBC Hgb Hct MCV MCH RDW Plt Count Lymph % (Auto) [place] % (Auto) Lymph # (Auto) [place] # (Auto) Seg Neutrophils % Seg Neuts % (Manual) Lymphocytes % (Manual) Monocytes % (Manual) Basophils % (Manual) Seg Neutrophils # Seg Neutrophils # Man Lymphocytes # (Manual) Monocytes # (Manual) PT INR APTT Fibrinogen D-Dimer ABG pH POC ABG pCO2 POC ABG pO2 ABG pO2 ABG HCO3 ABG O2 Saturation ABG Base Excess ABG Hemoglobin ABG Oxyhemoglobin Oxyhemoglobin Sodium Potassium 3.1 L Chloride Carbon Dioxide BUN Creatinine Glucose 138 H POC Glucose 141 H 147 H Lactic Acid Calcium Phosphorus 2.40 L Magnesium AST ALT Alkaline Phosphatase C-Reactive Protein Total Protein Albumin Triglycerides Ur Specific [place] Urine Creatinine Crossmatch 07/07/21 07/07/21 07/07/21 11:17 16:06 23:58 WBC RBC Hgb Hct MCV MCH RDW Plt Count Lymph % (Auto) [place] % (Auto) Lymph # (Auto) [place] # (Auto) Seg Neutrophils % Seg Neuts % (Manual) Lymphocytes % (Manual) Monocytes % (Manual) Basophils % (Manual) Seg Neutrophils # Seg Neutrophils # Man Lymphocytes # (Manual) Monocytes # (Manual) PT INR APTT Fibrinogen D-Dimer ABG pH POC ABG pCO2 POC ABG pO2 ABG pO2 ABG HCO3 ABG O2 Saturation ABG Base Excess ABG Hemoglobin ABG Oxyhemoglobin Oxyhemoglobin Sodium Potassium Chloride Carbon Dioxide BUN Creatinine Glucose POC Glucose 161 H 173 H 198 H Lactic Acid Calcium Phosphorus Magnesium AST ALT Alkaline Phosphatase C-Reactive Protein Total Protein Albumin Triglycerides Ur Specific [place] Urine Creatinine Crossmatch 07/08/21 07/08/21 07/08/21 04:20 04:20 06:12 WBC RBC 3.16 L Hgb 8.3 L Hct 25.1 L MCV MCH 26 L RDW 21.0 H Plt Count Lymph % (Auto) [place] % (Auto) Lymph # (Auto) [place] # (Auto) Seg Neutrophils % Seg Neuts % (Manual) Lymphocytes % (Manual) Monocytes % (Manual) Basophils % (Manual) Seg Neutrophils # Seg Neutrophils # Man Lymphocytes # (Manual) Monocytes # (Manual) PT INR APTT Fibrinogen D-Dimer ABG pH POC ABG pCO2 POC ABG pO2 ABG pO2 ABG HCO3 ABG O2 Saturation ABG Base Excess ABG Hemoglobin ABG Oxyhemoglobin Oxyhemoglobin Sodium Potassium Chloride Carbon Dioxide BUN Creatinine Glucose 183 H POC Glucose 189 H Lactic Acid Calcium Phosphorus Magnesium AST ALT Alkaline Phosphatase C-Reactive Protein Total Protein Albumin Triglycerides Ur Specific [place] Urine Creatinine Crossmatch 07/08/21 07/08/21 07/08/21 11:33 18:04 21:42 WBC RBC Hgb Hct MCV MCH RDW Plt Count Lymph % (Auto) [place] % (Auto) Lymph # (Auto) [place] # (Auto) Seg Neutrophils % Seg Neuts % (Manual) Lymphocytes % (Manual) Monocytes % (Manual) Basophils % (Manual) Seg Neutrophils # Seg Neutrophils # Man Lymphocytes # (Manual) Monocytes # (Manual) PT INR APTT Fibrinogen D-Dimer ABG pH POC ABG pCO2 POC ABG pO2 ABG pO2 ABG HCO3 ABG O2 Saturation ABG Base Excess ABG Hemoglobin ABG Oxyhemoglobin Oxyhemoglobin Sodium Potassium Chloride Carbon Dioxide BUN Creatinine Glucose POC Glucose 161 H 128 H 160 H Lactic Acid Calcium Phosphorus Magnesium AST ALT Alkaline Phosphatase C-Reactive Protein Total Protein Albumin Triglycerides Ur Specific [place] Urine Creatinine Crossmatch 07/09/21 07/09/21 07/09/21 06:03 06:10 06:10 WBC RBC 2.96 L Hgb 7.8 L Hct 23.5 L MCV MCH 27 L RDW 20.9 H Plt Count Lymph % (Auto) [place] % (Auto) Lymph # (Auto) [place] # (Auto) Seg Neutrophils % Seg Neuts % (Manual) Lymphocytes % (Manual) Monocytes % (Manual) Basophils % (Manual) Seg Neutrophils # Seg Neutrophils # Man Lymphocytes # (Manual) Monocytes # (Manual) PT INR APTT Fibrinogen D-Dimer ABG pH POC ABG pCO2 POC ABG pO2 ABG pO2 ABG HCO3 ABG O2 Saturation ABG Base Excess ABG Hemoglobin ABG Oxyhemoglobin Oxyhemoglobin Sodium Potassium Chloride Carbon Dioxide BUN Creatinine Glucose 168 H POC Glucose 174 H Lactic Acid Calcium 8.2 L Phosphorus Magnesium AST ALT Alkaline Phosphatase C-Reactive Protein Total Protein Albumin Triglycerides Ur Specific [place] Urine Creatinine Crossmatch 07/09/21 07/09/21 07/09/21 11:45 18:45 21:33 WBC RBC Hgb Hct MCV MCH RDW Plt Count Lymph % (Auto) [place] % (Auto) Lymph # (Auto) [place] # (Auto) Seg Neutrophils % Seg Neuts % (Manual) Lymphocytes % (Manual) Monocytes % (Manual) Basophils % (Manual) Seg Neutrophils # Seg Neutrophils # Man Lymphocytes # (Manual) Monocytes # (Manual) PT INR APTT Fibrinogen D-Dimer ABG pH POC ABG pCO2 POC ABG pO2 ABG pO2 ABG HCO3 ABG O2 Saturation ABG Base Excess ABG Hemoglobin ABG Oxyhemoglobin Oxyhemoglobin Sodium Potassium Chloride Carbon Dioxide BUN Creatinine Glucose POC Glucose 148 H 187 H 156 H Lactic Acid Calcium Phosphorus Magnesium AST ALT Alkaline Phosphatase C-Reactive Protein Total Protein Albumin Triglycerides Ur Specific [place] Urine Creatinine Crossmatch 07/10/21 07/10/21 07/10/21 00:01 05:24 11:12 WBC RBC Hgb Hct MCV MCH RDW Plt Count Lymph % (Auto) [place] % (Auto) Lymph # (Auto) [place] # (Auto) Seg Neutrophils % Seg Neuts % (Manual) Lymphocytes % (Manual) Monocytes % (Manual) Basophils % (Manual) Seg Neutrophils # Seg Neutrophils # Man Lymphocytes # (Manual) Monocytes # (Manual) PT INR APTT Fibrinogen D-Dimer ABG pH POC ABG pCO2 POC ABG pO2 ABG pO2 ABG HCO3 ABG O2 Saturation ABG Base Excess ABG Hemoglobin ABG Oxyhemoglobin Oxyhemoglobin Sodium Potassium Chloride Carbon Dioxide BUN Creatinine Glucose POC Glucose 191 H 203 H 174 H Lactic Acid Calcium Phosphorus Magnesium AST ALT Alkaline Phosphatase C-Reactive Protein Total Protein Albumin Triglycerides Ur Specific [place] Urine Creatinine Crossmatch 07/10/21 07/10/21 07/10/21 15:56 20:58 23:54 WBC RBC Hgb Hct MCV MCH RDW Plt Count Lymph % (Auto) [place] % (Auto) Lymph # (Auto) [place] # (Auto) Seg Neutrophils % Seg Neuts % (Manual) Lymphocytes % (Manual) Monocytes % (Manual) Basophils % (Manual) Seg Neutrophils # Seg Neutrophils # Man Lymphocytes # (Manual) Monocytes # (Manual) PT INR APTT Fibrinogen D-Dimer ABG pH POC ABG pCO2 POC ABG pO2 ABG pO2 ABG HCO3 ABG O2 Saturation ABG Base Excess ABG Hemoglobin ABG Oxyhemoglobin Oxyhemoglobin Sodium Potassium Chloride Carbon Dioxide BUN Creatinine Glucose POC Glucose 182 H 165 H 196 H Lactic Acid Calcium Phosphorus Magnesium AST ALT Alkaline Phosphatase C-Reactive Protein Total Protein Albumin Triglycerides Ur Specific [place] Urine Creatinine Crossmatch 07/11/21 07/11/21 07/11/21 04:04 04:04 05:34 WBC RBC 3.50 L Hgb 8.7 L Hct 27.6 L MCV MCH 25 L RDW 20.6 H Plt Count Lymph % (Auto) [place] % (Auto) Lymph # (Auto) [place] # (Auto) Seg Neutrophils % Seg Neuts % (Manual) Lymphocytes % (Manual) Monocytes % (Manual) Basophils % (Manual) 2.0 H Seg Neutrophils # Seg Neutrophils # Man Lymphocytes # (Manual) 0.8 L Monocytes # (Manual) PT INR APTT Fibrinogen D-Dimer ABG pH POC ABG pCO2 POC ABG pO2 ABG pO2 ABG HCO3 ABG O2 Saturation ABG Base Excess ABG Hemoglobin ABG Oxyhemoglobin Oxyhemoglobin Sodium Potassium 3.3 L Chloride Carbon Dioxide BUN Creatinine Glucose 199 H POC Glucose 191 H Lactic Acid Calcium Phosphorus Magnesium AST ALT Alkaline Phosphatase C-Reactive Protein Total Protein Albumin Triglycerides Ur Specific [place] Urine Creatinine Crossmatch
--- NOTE | 2021-07-11 11:47 | Progress Note ---
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 07/11/21: clinically stable for transport when bed is available at facility. Follow up speech recs. Reviewed neurology note, they state MRI cancelled. Appears this was done by surgery so they can discuss with them about why. Will continue to follow. 07/10/21: Continue current care. Trach changed out. Speech following. Awaiting placement. 07/09/21: Transfer to IMCU. PT/OT. Speech to see again now with smaller caliber trach. Placement. 07/08/21: Continue ICU. Once trach downsized may consider transition to step down if ICU bed is needed. Hopeful placement soon. PT/OT. 07/05/21: Continue ICU/IMCU status. Patient is stable for speech as well as PT/OT. Please reconsult them. [facility] has been denied for LTACH so will attempt to get patient into [facility] facility. Will speak with surgery about possibly downsizing trach to 8. Speech has no equipment to fit 10. Do not feel comfortable doing it myself or asking RT to change out to smaller trach. 07/04/21: Will keep in ICU/IMCU for now. Treat pain in back with Snyder and discontinue Tylenol. Follow up with CM on placement. 07/03/21: Continue current level of care. CM working on placement. 07/02/21: ABG now. Patient did have low grade temp earlier today and still has a white count despite being off steroids. It is trending down. Reviewed ID note and they did mention of persistent consider ct of neck. May need to do this. If done, please scan head as well. Will continue to follow. Spoke with RT about obtaining ABG. 07/01/21: Continue T-piece. Follow up speech recs. Follow up electrolytes. PT/OT. Stable for transfer when bed available 06/30/21: Aggressive replacement of electrolytes. Will repeat chemistry tonight around 8. please call for orders as we would like to keep her K at 4 and Mag at 2. Chemistry in the am. Stable for transfer to telemetry floor. 06/29/21: Speech did see but patient had decreased voice quality and increased wob so aborted. Will ask them to assess again on Thursday. Chest tube out and ordered follow up CXR. Stable for transfer but ok with continuing monitoring in ICU. If bed needed could go to step down. 06/28/21: monitor drainage in ICU for 24 more hours. Can likely come out tomorrow. Continue in ICU for now. Once chest tube out, no objection to transfer. 06/27/21: Will place chest tube to water seal. Instructed staff if any change in respiratory status, place back on suction and obtain CXR. Otherwise will leave off. Continue T-piece as tolerated. Rehab/correction/LTACH appropri ate. STable for transfer if and when bed becomes available. 06/26/21: T-piece today. If off the vent, agree with surgery and removal of chest tube as subq emphysema is improving as well. PT has seen suggested LTACH, however if we are able to wean she may need correction/rehab. Prognosis neida nues to improve. 06/25/21: Continue PSV as tolerated. Hopeful T-piece in the next 24-48 hours. Will drop steroids down further on . Can switch to daily and even change to oral. PT/OT consult, and follow up recs. May need LTACH vs rehab vs both. Continue to follow. 06/24/21: Daily PSV trials. Maybe ready for T-piece sson. Continue to wean steroids to off. IMS changed to 40q12 which is fine. Continue chest tube until off vent. Still on list for [facility] but will discuss with CM about checking into LTACH as patient will need rehab. PT/OT consult. 06/21/21: Continue current level of sedation. Chest tube does not have air leak but there is clear evidence of a PTX on right. Stripped tube at bedside and will repeat CXR in the morning. Hold on weaning sedation for now and hold on PSV trials. May need second chest tube vs vats if PTX worsens or does not resolve. Patient still on list for [facility], hopeful they will have a bed soon. Drop steroids to 40q8 starting Thursday. Monitor renal function, likely will improve. Needs more free water. Prognosis still remains guarded. 06/20/21: Restart some sedation. At least pain and maybe diprovan. Would like to wake patient up at some point and attempt some PSV trials. Labs are off this am. Large bump in white count but no fever, also no diff drawn. Could be error vs steroid related but this is in just 24 hours. Will repeat tomorrow. If spikes a temp neves culture as well. Small bump in Cr but still in normal range. Will watch. Now that peg in place, tube feeds and free water flushes. Still on list for [facility]. Patient has been steroids greater than 7 days so will have to wean. Can drop to 60q8 starting tomorrow. Prognosis still remains guarded. 06/19/21: surgery to attempt trach and peg today. Still will ask to keep on transfer list for [facility] as her other issues still need to be addressed. If able to place peg, can stop clinimix, give free water and start tube feeds. Prognosis remains guarded. pH better with drop in tidal volume. 06/18/21: [facility] has agreed to accept but no ICU beds available at this time. Spoke with Dr. Vasquez yesterday and Dr. Patricia spoke with ENT there. Spoke with RT this am and patient did have a leak when cuff let down and her tidal volumes dropped to below 100. Patient remains on abx and steriods. Will consider lightening sedation tomorrow and seeing how patient does if cuff leak persists. Dropped tidal volumes to 450. Continue PPN for now. 06/17/21: spoke with surgery and they feel transfer is reasonable. I have reached out to [facility] and [facility]MS has spoken with someone from [facility]. Await to hear back from them. Continue supportive measures and adequate sedation for pain control. No PSV trials as of yet. Blood sugar control, increase lantus. Most likely secondary to steroids. Continue abx therapy. Guarded prognosis. 06/16/21: Renal function improved with fluids. IMS to give more fluids (LR) today which I agree with. FeNa is =0.7. Should be fluid responsive. Continue clinimix. Needs long acting insulin. Agree with lantus. Asked nursing to increase sedation now that we know that patient's mental status is stable. Picc today. Air leak test vs Neck CT on tomorrow. 06/15/21: Hopeful with worsening renal function ( likely from code on yesterday) that sedatives are just lingering from that. Still making good urine but output has fallen off. Will send urine sodium and urine cr to check Fena. Most likely this is prerenal. ordered renal ultrasound as well. Continue abx and steroids. Will start clinimix today. This should help with the free water piece. Will give another liter bolus of LR right now. Keep sedation off for now. Guarded prognosis. 06/14/21: Will discuss with surgery future plans. They have ordered steroids to help with inflammation and abx continue. All others appears stable and no acute evidence of bleeding at this time. Follow up surgery recs if any new ones. Guarded prognosis. 06/13/21: Patient to back to OR today. BLood transfusion. Will send DIC panel and may need to given cryo if over 6 units of PRBC's given. Patient will likely need trach and peg as we need to address nutrition. Chest tube placed, large bore now. Patient now with right sided effusion. Hemothorax???. Will continue to monitor output. Needs picc line as femoral should come out soon. Continue pressors. Continue sedation for pain control and comfort. Guarded prognosis. Surgery comfortable with neck and current situation so they have not request transfer. 1. Placed right femoral central line. pressors can run through this. 2. Repeat chemistry stat given bicarb of 8 and blood sugar of greater than 600. Ordering FSBS now. Earlier bicarb was 25. If accurate will need bicarb drip and vasopressin but not sure as pH on blood gas was normal done around the same time. 3. Coagulopathy is improving. INR down to 4.55 and PTT and pT improving. Will continue to give FFP. Ordered more vitamin K. H/H is stable but patient is oozing from neck and mouth. 4. Vasopressor for blood pressure. Need to keep map 65 and greater 5. Lujan is needed for accurate I/O 6. Surgery called by IMS about current CT situation. They state they will reassess in the am. I have reviewed the images myself. If I can position the patient safely without compromising the airway after adequate sedation, may consider placing chest tube now as INR is better and FFP is hanging. Patient is morbidly obese so shits could move the ET tube so if not safe, will wait until surgery comes in the morning. 7. Would not attempt to pass OG or NG tube given current situation in neck 8. Will discuss with surgery tomorrow but I feel this patient should be transferred to a tertiary care facility with ENT as we do not have that service here. CCT 31 minutes. Subjective Date of service: 07/11/21 Interval history: no acute events. Speech is following PMV ordered but not here yet. Objective Vital Signs - 12hr 07/11/21 07/11/21 07/11/21 00:00 00:30 01:00 Temperature 98.9 F Pulse Rate 98 H 96 H 97 H Pulse Rate [ 96 H From Monitor] Respiratory 18 18 17 Rate Blood Pressure 130/71 130/71 141/78 O2 Sat by Pulse 98 99 98 Oximetry O2 Sat by Pulse 99 Oximetry [ Assessment] 07/11/21 07/11/21 07/11/21 01:30 02:00 02:30 Temperature Pulse Rate 96 H 97 H 99 H Pulse Rate [ From Monitor] Respiratory 18 21 18 Rate Blood Pressure 141/78 134/69 134/69 O2 Sat by Pulse 98 97 98 Oximetry O2 Sat by Pulse Oximetry [ Assessment] 07/11/21 07/11/21 07/11/21 03:00 03:30 03:45 Temperature 98.4 F Pulse Rate 100 H 97 H Pulse Rate [ From Monitor] Respiratory 19 21 Rate Blood Pressure 128/68 128/68 O2 Sat by Pulse 99 99 Oximetry O2 Sat by Pulse Oximetry [ Assessment] 07/11/21 07/11/21 07/11/21 04:00 04:30 05:00 Temperature Pulse Rate 95 H 98 H 103 H Pulse Rate [ 101 H From Monitor] Respiratory 16 13 20 Rate Blood Pressure 137/75 137/75 137/75 O2 Sat by Pulse 98 99 100 Oximetry O2 Sat by Pulse Oximetry [ Assessment] 07/11/21 07/11/21 07/11/21 05:31 06:00 06:31 Temperature Pulse Rate 98 H 98 H 98 H Pulse Rate [ From Monitor] Respiratory 16 13 19 Rate Blood Pressure 141/73 140/70 140/70 O2 Sat by Pulse 99 100 100 Oximetry O2 Sat by Pulse Oximetry [ Assessment] 07/11/21 07/11/21 07/11/21 07:00 07:14 07:31 Temperature 99.3 F Pulse Rate 100 H 103 H Pulse Rate [ From Monitor] Respiratory 17 14 Rate Blood Pressure 128/61 128/61 O2 Sat by Pulse 99 100 Oximetry O2 Sat by Pulse Oximetry [ Assessment] 07/11/21 07/11/21 07/11/21 08:00 08:31 09:00 Temperature Pulse Rate 102 H 100 H 104 H Pulse Rate [ 98 H From Monitor] Respiratory 17 15 17 Rate Blood Pressure 118/54 118/54 110/71 O2 Sat by Pulse 98 100 98 Oximetry O2 Sat by Pulse Oximetry [ Assessment] 07/11/21 07/11/21 07/11/21 09:31 10:00 10:09 Temperature Pulse Rate 101 H 136 H Pulse Rate [ From Monitor] Respiratory 17 15 Rate Blood Pressure 110/71 107/65 O2 Sat by Pulse 99 97 98 Oximetry O2 Sat by Pulse Oximetry [ Assessment] 07/11/21 07/11/21 07/11/21 10:10 10:13 10:31 Temperature Pulse Rate 108 H 103 H Pulse Rate [ From Monitor] Respiratory 18 Rate Blood Pressure 107/65 107/65 O2 Sat by Pulse 98 Oximetry O2 Sat by Pulse 99 Oximetry [ Assessment] 07/11/21 11:01 Temperature Pulse Rate 128 H Pulse Rate [ From Monitor] Respiratory 21 Rate Blood Pressure 96/75 O2 Sat by Pulse 98 Oximetry O2 Sat by Pulse Oximetry [ Assessment] Constitutional: alert, other (on vent trach in place) Eyes: non-icteric ENT: oropharynx moist Neck: other (trach in place) Ascultation: Bilateral: clear Percussion: Bilateral: not dull Cardiovascular: regular rate and rhythm Gastrointestinal: normoactive bowel sounds Integumentary: normal Extremities: no edema, other (subq emphysema) Neurologic: normal mental status CBC and BMP: 07/11/21 04:04 07/11/21 04:04 ABG, PT/INR, D-dimer: ABG ABG pH 7.448 pH Units (7.350-7.450) 07/04/21 01:44 POC ABG pCO2 25.6 mmHg (32.0-48.0) L 06/13/21 04:31 ABG pCO2 39.5 mm Hg 07/04/21 01:44 POC ABG pO2 138.8 mmHg (83-108) H 06/13/21 04:31 ABG pO2 107.7 mm Hg (80.0-90.0) H 07/04/21 01:44 POC ABG HCO3 21.4 06/13/21 04:31 ABG O2 Saturation 98.0 % (95.0-99.0) 07/04/21 01:44 PT/INR, D-dimer PT 18.3 Sec. (12.2-14.9) H 06/20/21 04:33 INR 1.37 (0.87-1.13) H 06/20/21 04:33 D-Dimer 1244.63 ng/mlDDU (0-234) H 06/13/21 Unknown Abnormal lab findings: Abnormal Labs 06/11/21 06/11/21 06/11/21 15:23 15:23 19:20 WBC 12.0 H RBC Hgb Hct MCV 72 L MCH 21 L RDW 17.5 H Plt Count Lymph % (Auto) 12.9 L [place] % (Auto) 8.6 H Lymph # (Auto) [place] # (Auto) 1.0 H Seg Neutrophils % 77.4 H Seg Neuts % (Manual) Lymphocytes % (Manual) Monocytes % (Manual) Basophils % (Manual) Seg Neutrophils # 9.3 H Seg Neutrophils # Man Lymphocytes # (Manual) Monocytes # (Manual) PT INR APTT Fibrinogen D-Dimer ABG pH POC ABG pCO2 POC ABG pO2 ABG pO2 ABG HCO3 ABG O2 Saturation ABG Base Excess ABG Hemoglobin ABG Oxyhemoglobin Oxyhemoglobin Sodium Potassium Chloride Carbon Dioxide BUN Creatinine Glucose 144 H POC Glucose Lactic Acid Calcium Phosphorus Magnesium AST ALT Alkaline Phosphatase C-Reactive Protein Total Protein Albumin Triglycerides Ur Specific [place] Urine Creatinine Crossmatch See Detail 06/11/21 06/11/21 06/11/21 19:29 19:29 23:21 WBC 15.8 H RBC Hgb 9.4 L Hct MCV 72 L MCH 22 L RDW 17.4 H Plt Count Lymph % (Auto) 9.2 L [place] % (Auto) Lymph # (Auto) [place] # (Auto) Seg Neutrophils % 89.0 H Seg Neuts % (Manual) Lymphocytes % (Manual) Monocytes % (Manual) Basophils % (Manual) Seg Neutrophils # 14.0 H Seg Neutrophils # Man Lymphocytes # (Manual) Monocytes # (Manual) PT 72.9 H INR 8.18 H* APTT 71.7 H* Fibrinogen D-Dimer ABG pH POC ABG pCO2 POC ABG pO2 ABG pO2 ABG HCO3 ABG O2 Saturation ABG Base Excess ABG Hemoglobin ABG Oxyhemoglobin Oxyhemoglobin Sodium 149 H D Potassium Chloride 124.3 H Carbon Dioxide 8 L* D BUN Creatinine 0.3 L Glucose 628 H* POC Glucose Lactic Acid Calcium 2.4 L* D Phosphorus Magnesium AST ALT < 5 L Alkaline Phosphatase 19 L C-Reactive Protein Total Protein 1.6 L D Albumin 0.8 L Triglycerides Ur Specific [place] Urine Creatinine Crossmatch 06/11/21 06/11/21 06/11/21 23:21 23:22 23:42 WBC RBC Hgb Hct MCV MCH 27 L RDW 22.2 H Plt Count 131 L Lymph % (Auto) [place] % (Auto) Lymph # (Auto) [place] # (Auto) Seg Neutrophils % Seg Neuts % (Manual) Lymphocytes % (Manual) Monocytes % (Manual) Basophils % (Manual) Seg Neutrophils # Seg Neutrophils # Man Lymphocytes # (Manual) Monocytes # (Manual) PT 46.3 H INR 4.55 H APTT 54.8 H Fibrinogen D-Dimer ABG pH POC ABG pCO2 POC ABG pO2 325.9 H ABG pO2 ABG HCO3 ABG O2 Saturation ABG Base Excess ABG Hemoglobin 8.0 L ABG Oxyhemoglobin 99.0 H Oxyhemoglobin Sodium Potassium Chloride Carbon Dioxide BUN Creatinine Glucose POC Glucose Lactic Acid Calcium Phosphorus Magnesium AST ALT Alkaline Phosphatase C-Reactive Protein Total Protein Albumin Triglycerides Ur Specific [place] Urine Creatinine Crossmatch 06/12/21 06/12/21 06/12/21 01:45 01:45 01:45 WBC 21.6 H RBC 3.04 L Hgb 6.7 L D Hct 22.4 L D MCV 74 L MCH 22 L RDW 18.9 H Plt Count Lymph % (Auto) [place] % (Auto) Lymph # (Auto) [place] # (Auto) Seg Neutrophils % Seg Neuts % (Manual) 76.0 H Lymphocytes % (Manual) 2.0 L Monocytes % (Manual) 8.0 H Basophils % (Manual) Seg Neutrophils # Seg Neutrophils # Man 16.4 H Lymphocytes # (Manual) 0.4 L Monocytes # (Manual) 1.7 H PT 25.4 H INR 2.10 H APTT Fibrinogen D-Dimer ABG pH POC ABG pCO2 POC ABG pO2 ABG pO2 ABG HCO3 ABG O2 Saturation ABG Base Excess ABG Hemoglobin ABG Oxyhemoglobin Oxyhemoglobin Sodium Potassium 5.6 H D Chloride Carbon Dioxide 20 L D BUN Creatinine Glucose 368 H POC Glucose Lactic Acid Calcium 7.1 L D Phosphorus Magnesium AST ALT Alkaline Phosphatase C-Reactive Protein Total Protein 5.3 L D Albumin 3.1 L Triglycerides Ur Specific [place] Urine Creatinine Crossmatch 06/12/21 06/12/21 06/12/21 02:05 04:41 11:05 WBC 14.6 H RBC 3.52 L Hgb 8.5 L Hct 27.7 L MCV MCH 24 L RDW 20.9 H Plt Count Lymph % (Auto) [place] % (Auto) Lymph # (Auto) [place] # (Auto) Seg Neutrophils % Seg Neuts % (Manual) Lymphocytes % (Manual) Monocytes % (Manual) Basophils % (Manual) Seg Neutrophils # Seg Neutrophils # Man Lymphocytes # (Manual) Monocytes # (Manual) PT INR APTT Fibrinogen D-Dimer ABG pH POC ABG pCO2 POC ABG pO2 224.6 H ABG pO2 ABG HCO3 ABG O2 Saturation ABG Base Excess ABG Hemoglobin 7.3 L ABG Oxyhemoglobin 98.7 H Oxyhemoglobin Sodium Potassium Chloride Carbon Dioxide BUN Creatinine Glucose POC Glucose 308 H Lactic Acid Calcium Phosphorus Magnesium AST ALT Alkaline Phosphatase C-Reactive Protein Total Protein Albumin Triglycerides Ur Specific [place] Urine Creatinine Crossmatch 06/12/21 06/12/21 06/12/21 11:05 11:05 12:18 WBC RBC Hgb Hct MCV MCH RDW Plt Count Lymph % (Auto) [place] % (Auto) Lymph # (Auto) [place] # (Auto) Seg Neutrophils % Seg Neuts % (Manual) Lymphocytes % (Manual) Monocytes % (Manual) Basophils % (Manual) Seg Neutrophils # Seg Neutrophils # Man Lymphocytes # (Manual) Monocytes # (Manual) PT 16.8 H INR 1.23 H APTT Fibrinogen D-Dimer ABG pH POC ABG pCO2 POC ABG pO2 ABG pO2 ABG HCO3 ABG O2 Saturation ABG Base Excess ABG Hemoglobin ABG Oxyhemoglobin Oxyhemoglobin Sodium Potassium Chloride Carbon Dioxide BUN 24 H Creatinine Glucose 324 H POC Glucose 281 H Lactic Acid Calcium 7.5 L Phosphorus Magnesium AST 70 H ALT 57 H Alkaline Phosphatase C-Reactive Protein Total Protein 6.0 L Albumin 3.6 L Triglycerides Ur Specific [place] Urine Creatinine Crossmatch 06/12/21 06/12/21 06/12/21 17:00 17:00 17:00 WBC RBC Hgb 7.5 L Hct 24.0 L MCV MCH RDW Plt Count Lymph % (Auto) [place] % (Auto) Lymph # (Auto) [place] # (Auto) Seg Neutrophils % Seg Neuts % (Manual) Lymphocytes % (Manual) Monocytes % (Manual) Basophils % (Manual) Seg Neutrophils # Seg Neutrophils # Man Lymphocytes # (Manual) Monocytes # (Manual) PT 16.0 H INR 1.16 H APTT Fibrinogen D-Dimer ABG pH POC ABG pCO2 POC ABG pO2 ABG pO2 ABG HCO3 ABG O2 Saturation ABG Base Excess ABG Hemoglobin ABG Oxyhemoglobin Oxyhemoglobin Sodium Potassium Chloride Carbon Dioxide BUN Creatinine Glucose POC Glucose Lactic Acid Calcium Phosphorus Magnesium AST ALT Alkaline Phosphatase C-Reactive Protein Total Protein Albumin Triglycerides Ur Specific [place] 1.035 H Urine Creatinine Crossmatch 06/12/21 06/12/21 06/12/21 18:06 23:00 23:05 WBC RBC Hgb 7.6 L Hct 23.5 L MCV MCH RDW Plt Count Lymph % (Auto) [place] % (Auto) Lymph # (Auto) [place] # (Auto) Seg Neutrophils % Seg Neuts % (Manual) Lymphocytes % (Manual) Monocytes % (Manual) Basophils % (Manual) Seg Neutrophils # Seg Neutrophils # Man Lymphocytes # (Manual) Monocytes # (Manual) PT INR APTT Fibrinogen D-Dimer ABG pH POC ABG pCO2 POC ABG pO2 ABG pO2 ABG HCO3 ABG O2 Saturation ABG Base Excess ABG Hemoglobin ABG Oxyhemoglobin Oxyhemoglobin Sodium Potassium Chloride Carbon Dioxide BUN Creatinine Glucose POC Glucose 257 H 300 H Lactic Acid Calcium Phosphorus Magnesium AST ALT Alkaline Phosphatase C-Reactive Protein Total Protein Albumin Triglycerides Ur Specific [place] Urine Creatinine Crossmatch 06/13/21 06/13/21 06/13/21 04:31 05:19 07:30 WBC RBC Hgb 6.8 L Hct 21.7 L MCV MCH RDW Plt Count Lymph % (Auto) [place] % (Auto) Lymph # (Auto) [place] # (Auto) Seg Neutrophils % Seg Neuts % (Manual) Lymphocytes % (Manual) Monocytes % (Manual) Basophils % (Manual) Seg Neutrophils # Seg Neutrophils # Man Lymphocytes # (Manual) Monocytes # (Manual) PT INR APTT Fibrinogen D-Dimer ABG pH 7.541 H POC ABG pCO2 25.6 L POC ABG pO2 138.8 H ABG pO2 ABG HCO3 ABG O2 Saturation ABG Base Excess ABG Hemoglobin 7.3 L ABG Oxyhemoglobin 98.1 H Oxyhemoglobin Sodium Potassium Chloride Carbon Dioxide BUN Creatinine Glucose POC Glucose 286 H Lactic Acid Calcium Phosphorus Magnesium AST ALT Alkaline Phosphatase C-Reactive Protein Total Protein Albumin Triglycerides Ur Specific [place] Urine Creatinine Crossmatch 06/13/21 06/13/21 06/13/21 07:30 12:04 14:50 WBC RBC Hgb Hct MCV MCH RDW Plt Count Lymph % (Auto) [place] % (Auto) Lymph # (Auto) [place] # (Auto) Seg Neutrophils % Seg Neuts % (Manual) Lymphocytes % (Manual) Monocytes % (Manual) Basophils % (Manual) Seg Neutrophils # Seg Neutrophils # Man Lymphocytes # (Manual) Monocytes # (Manual) PT INR APTT Fibrinogen D-Dimer ABG pH 7.039 L* 7.182 L* POC ABG pCO2 POC ABG pO2 ABG pO2 63.1 L ABG HCO3 17.4 L ABG O2 Saturation 73.4 L ABG Base Excess -12.6 L -7.1 L ABG Hemoglobin 7.7 L 6.9 L ABG Oxyhemoglobin Oxyhemoglobin 71.8 L 93.5 L Sodium Potassium Chloride 108.9 H Carbon Dioxide BUN 28 H Creatinine Glucose 293 H POC Glucose Lactic Acid Calcium 7.2 L Phosphorus Magnesium AST 106 H ALT 92 H Alkaline Phosphatase C-Reactive Protein Total Protein 5.6 L Albumin 3.3 L Triglycerides Ur Specific [place] Urine Creatinine Crossmatch 06/13/21 06/13/21 06/13/21 14:54 15:45 17:34 WBC RBC Hgb Hct MCV MCH RDW Plt Count Lymph % (Auto) [place] % (Auto) Lymph # (Auto) [place] # (Auto) Seg Neutrophils % Seg Neuts % (Manual) Lymphocytes % (Manual) Monocytes % (Manual) Basophils % (Manual) Seg Neutrophils # Seg Neutrophils # Man Lymphocytes # (Manual) Monocytes # (Manual) PT INR APTT Fibrinogen D-Dimer ABG pH POC ABG pCO2 POC ABG pO2 ABG pO2 178.4 H ABG HCO3 ABG O2 Saturation 99.1 H ABG Base Excess ABG Hemoglobin 8.0 L ABG Oxyhemoglobin Oxyhemoglobin Sodium Potassium Chloride 107.3 H Carbon Dioxide 19 L BUN 33 H Creatinine 1.5 H Glucose 379 H POC Glucose Lactic Acid 5.30 H* Calcium 6.8 L Phosphorus Magnesium AST ALT Alkaline Phosphatase C-Reactive Protein Total Protein Albumin Triglycerides Ur Specific [place] Urine Creatinine Crossmatch 06/13/21 06/13/21 06/13/21 17:40 23:29 Unknown WBC 22.5 H RBC 3.16 L Hgb 8.0 L Hct 26.0 L MCV MCH 26 L RDW 21.4 H Plt Count Lymph % (Auto) [place] % (Auto) Lymph # (Auto) [place] # (Auto) Seg Neutrophils % Seg Neuts % (Manual) 88.0 H Lymphocytes % (Manual) 4.0 L Monocytes % (Manual) Basophils % (Manual) Seg Neutrophils # Seg Neutrophils # Man 19.8 H Lymphocytes # (Manual) 0.9 L Monocytes # (Manual) 1.4 H PT INR APTT Fibrinogen D-Dimer ABG pH POC ABG pCO2 POC ABG pO2 ABG pO2 ABG HCO3 ABG O2 Saturation ABG Base Excess ABG Hemoglobin ABG Oxyhemoglobin Oxyhemoglobin Sodium Potassium Chloride Carbon Dioxide BUN Creatinine Glucose POC Glucose 294 H 288 H Lactic Acid Calcium Phosphorus Magnesium AST ALT Alkaline Phosphatase C-Reactive Protein Total Protein Albumin Triglycerides Ur Specific [place] Urine Creatinine Crossmatch 06/13/21 06/14/21 06/14/21 Unknown 05:39 06:15 WBC RBC 2.93 L Hgb 7.2 L Hct 23.2 L MCV MCH 25 L RDW 21.2 H Plt Count Lymph % (Auto) [place] % (Auto) Lymph # (Auto) [place] # (Auto) Seg Neutrophils % Seg Neuts % (Manual) Lymphocytes % (Manual) Monocytes % (Manual) Basophils % (Manual) Seg Neutrophils # Seg Neutrophils # Man Lymphocytes # (Manual) Monocytes # (Manual) PT 17.6 H INR 1.31 H APTT Fibrinogen 546 H D-Dimer 1244.63 H ABG pH POC ABG pCO2 POC ABG pO2 ABG pO2 ABG HCO3 ABG O2 Saturation ABG Base Excess ABG Hemoglobin ABG Oxyhemoglobin Oxyhemoglobin Sodium Potassium Chloride Carbon Dioxide BUN Creatinine Glucose POC Glucose 246 H Lactic Acid Calcium Phosphorus Magnesium AST ALT Alkaline Phosphatase C-Reactive Protein Total Protein Albumin Triglycerides Ur Specific [place] Urine Creatinine Crossmatch 06/14/21 06/14/21 06/14/21 06:15 06:15 09:13 WBC RBC Hgb Hct MCV MCH RDW Plt Count Lymph % (Auto) [place] % (Auto) Lymph # (Auto) [place] # (Auto) Seg Neutrophils % Seg Neuts % (Manual) Lymphocytes % (Manual) Monocytes % (Manual) Basophils % (Manual) Seg Neutrophils # Seg Neutrophils # Man Lymphocytes # (Manual) Monocytes # (Manual) PT INR APTT Fibrinogen D-Dimer ABG pH POC ABG pCO2 POC ABG pO2 ABG pO2 183.0 H ABG HCO3 ABG O2 Saturation 99.2 H ABG Base Excess ABG Hemoglobin 6.6 L ABG Oxyhemoglobin Oxyhemoglobin Sodium 147 H Potassium Chloride 112.5 H Carbon Dioxide 21 L BUN 36 H Creatinine 1.4 H Glucose 281 H POC Glucose Lactic Acid Calcium 6.9 L Phosphorus Magnesium AST ALT Alkaline Phosphatase C-Reactive Protein Total Protein Albumin Triglycerides 189 H Ur Specific [place] Urine Creatinine Crossmatch 06/14/21 06/14/21 06/14/21 10:45 12:16 13:30 WBC RBC Hgb 7.1 L Hct 22.3 L MCV MCH RDW Plt Count Lymph % (Auto) [place] % (Auto) Lymph # (Auto) [place] # (Auto) Seg Neutrophils % Seg Neuts % (Manual) Lymphocytes % (Manual) Monocytes % (Manual) Basophils % (Manual) Seg Neutrophils # Seg Neutrophils # Man Lymphocytes # (Manual) Monocytes # (Manual) PT INR APTT Fibrinogen D-Dimer ABG pH 7.205 L POC ABG pCO2 POC ABG pO2 ABG pO2 261.3 H ABG HCO3 ABG O2 Saturation 99.4 H ABG Base Excess -7.2 L ABG Hemoglobin 7.6 L ABG Oxyhemoglobin Oxyhemoglobin Sodium Potassium Chloride Carbon Dioxide BUN Creatinine Glucose POC Glucose 174 H Lactic Acid Calcium Phosphorus Magnesium AST ALT Alkaline Phosphatase C-Reactive Protein Total Protein Albumin Triglycerides Ur Specific [place] Urine Creatinine Crossmatch 06/14/21 06/14/21 06/15/21 17:40 18:43 00:06 WBC RBC Hgb Hct MCV MCH RDW Plt Count Lymph % (Auto) [place] % (Auto) Lymph # (Auto) [place] # (Auto) Seg Neutrophils % Seg Neuts % (Manual) Lymphocytes % (Manual) Monocytes % (Manual) Basophils % (Manual) Seg Neutrophils # Seg Neutrophils # Man Lymphocytes # (Manual) Monocytes # (Manual) PT INR APTT Fibrinogen D-Dimer ABG pH 7.292 L POC ABG pCO2 POC ABG pO2 ABG pO2 78.8 L ABG HCO3 ABG O2 Saturation ABG Base Excess -5.0 L ABG Hemoglobin 9.1 L ABG Oxyhemoglobin Oxyhemoglobin 93.7 L Sodium Potassium Chloride Carbon Dioxide BUN Creatinine Glucose POC Glucose 182 H 144 H Lactic Acid Calcium Phosphorus Magnesium AST ALT Alkaline Phosphatase C-Reactive Protein Total Protein Albumin Triglycerides Ur Specific [place] Urine Creatinine Crossmatch 06/15/21 06/15/21 06/15/21 03:55 03:56 10:40 WBC RBC Hgb 8.4 L Hct 25.8 L MCV MCH RDW Plt Count Lymph % (Auto) [place] % (Auto) Lymph # (Auto) [place] # (Auto) Seg Neutrophils % Seg Neuts % (Manual) Lymphocytes % (Manual) Monocytes % (Manual) Basophils % (Manual) Seg Neutrophils # Seg Neutrophils # Man Lymphocytes # (Manual) Monocytes # (Manual) PT INR APTT Fibrinogen D-Dimer ABG pH POC ABG pCO2 POC ABG pO2 ABG pO2 ABG HCO3 ABG O2 Saturation ABG Base Excess ABG Hemoglobin ABG Oxyhemoglobin Oxyhemoglobin Sodium 147 H Potassium Chloride 112.2 H Carbon Dioxide 21 L BUN 47 H Creatinine 1.9 H Glucose 272 H POC Glucose Lactic Acid Calcium 7.3 L Phosphorus Magnesium AST 64 H ALT 106 H Alkaline Phosphatase C-Reactive Protein Total Protein 5.1 L Albumin 2.9 L Triglycerides Ur Specific [place] Urine Creatinine 81.1 H Crossmatch 06/15/21 06/15/21 06/15/21 11:46 17:16 23:17 WBC RBC Hgb Hct MCV MCH RDW Plt Count Lymph % (Auto) [place] % (Auto) Lymph # (Auto) [place] # (Auto) Seg Neutrophils % Seg Neuts % (Manual) Lymphocytes % (Manual) Monocytes % (Manual) Basophils % (Manual) Seg Neutrophils # Seg Neutrophils # Man Lymphocytes # (Manual) Monocytes # (Manual) PT INR APTT Fibrinogen D-Dimer ABG pH POC ABG pCO2 POC ABG pO2 ABG pO2 ABG HCO3 ABG O2 Saturation ABG Base Excess ABG Hemoglobin ABG Oxyhemoglobin Oxyhemoglobin Sodium Potassium Chloride Carbon Dioxide BUN Creatinine Glucose POC Glucose 271 H 268 H 264 H Lactic Acid Calcium Phosphorus Magnesium AST ALT Alkaline Phosphatase C-Reactive Protein Total Protein Albumin Triglycerides Ur Specific [place] Urine Creatinine Crossmatch 06/15/21 06/15/21 06/16/21 Unknown Unknown 04:32 WBC RBC 3.21 L 3.16 L Hgb 8.4 L 8.2 L Hct 26.1 L 25.4 L MCV MCH 26 L 26 L RDW 21.3 H 21.2 H Plt Count 105 L 118 L Lymph % (Auto) [place] % (Auto) Lymph # (Auto) [place] # (Auto) Seg Neutrophils % Seg Neuts % (Manual) Lymphocytes % (Manual) Monocytes % (Manual) Basophils % (Manual) Seg Neutrophils # Seg Neutrophils # Man Lymphocytes # (Manual) Monocytes # (Manual) PT INR APTT Fibrinogen D-Dimer ABG pH 7.465 H POC ABG pCO2 POC ABG pO2 ABG pO2 114.1 H ABG HCO3 ABG O2 Saturation ABG Base Excess ABG Hemoglobin 8.4 L ABG Oxyhemoglobin Oxyhemoglobin Sodium Potassium Chloride Carbon Dioxide BUN Creatinine Glucose POC Glucose Lactic Acid Calcium Phosphorus Magnesium AST ALT Alkaline Phosphatase C-Reactive Protein Total Protein Albumin Triglycerides Ur Specific [place] Urine Creatinine Crossmatch 06/16/21 06/16/21 06/16/21 04:32 04:32 05:08 WBC RBC Hgb Hct MCV MCH RDW Plt Count Lymph % (Auto) [place] % (Auto) Lymph # (Auto) [place] # (Auto) Seg Neutrophils % Seg Neuts % (Manual) Lymphocytes % (Manual) Monocytes % (Manual) Basophils % (Manual) Seg Neutrophils # Seg Neutrophils # Man Lymphocytes # (Manual) Monocytes # (Manual) PT INR APTT Fibrinogen D-Dimer ABG pH POC ABG pCO2 POC ABG pO2 ABG pO2 ABG HCO3 ABG O2 Saturation ABG Base Excess ABG Hemoglobin ABG Oxyhemoglobin Oxyhemoglobin Sodium 148 H Potassium 3.3 L Chloride 115.1 H Carbon Dioxide 21 L BUN 54 H Creatinine 1.6 H Glucose 367 H POC Glucose 356 H Lactic Acid Calcium 7.4 L Phosphorus Magnesium AST ALT Alkaline Phosphatase C-Reactive Protein 3.30 H Total Protein Albumin Triglycerides Ur Specific [place] Urine Creatinine Crossmatch 06/16/21 06/16/21 06/16/21 05:30 11:46 17:03 WBC RBC Hgb Hct MCV MCH RDW Plt Count Lymph % (Auto) [place] % (Auto) Lymph # (Auto) [place] # (Auto) Seg Neutrophils % Seg Neuts % (Manual) Lymphocytes % (Manual) Monocytes % (Manual) Basophils % (Manual) Seg Neutrophils # Seg Neutrophils # Man Lymphocytes # (Manual) Monocytes # (Manual) PT INR APTT Fibrinogen D-Dimer ABG pH 7.475 H POC ABG pCO2 POC ABG pO2 ABG pO2 171.8 H ABG HCO3 ABG O2 Saturation 99.1 H ABG Base Excess ABG Hemoglobin 11.7 L ABG Oxyhemoglobin Oxyhemoglobin Sodium Potassium Chloride Carbon Dioxide BUN Creatinine Glucose POC Glucose 309 H 345 H Lactic Acid Calcium Phosphorus Magnesium AST ALT Alkaline Phosphatase C-Reactive Protein Total Protein Albumin Triglycerides Ur Specific [place] Urine Creatinine Crossmatch 06/16/21 06/16/21 06/17/21 20:18 23:22 04:50 WBC RBC Hgb Hct MCV MCH RDW Plt Count Lymph % (Auto) [place] % (Auto) Lymph # (Auto) [place] # (Auto) Seg Neutrophils % Seg Neuts % (Manual) Lymphocytes % (Manual) Monocytes % (Manual) Basophils % (Manual) Seg Neutrophils # Seg Neutrophils # Man Lymphocytes # (Manual) Monocytes # (Manual) PT INR APTT Fibrinogen D-Dimer ABG pH 7.479 H POC ABG pCO2 POC ABG pO2 ABG pO2 143.1 H ABG HCO3 ABG O2 Saturation ABG Base Excess ABG Hemoglobin 10.0 L ABG Oxyhemoglobin Oxyhemoglobin Sodium Potassium Chloride Carbon Dioxide BUN Creatinine Glucose POC Glucose 325 H 315 H Lactic Acid Calcium Phosphorus Magnesium AST ALT Alkaline Phosphatase C-Reactive Protein Total Protein Albumin Triglycerides Ur Specific [place] Urine Creatinine Crossmatch 06/17/21 06/17/21 06/17/21 05:18 05:30 05:30 WBC RBC 3.17 L Hgb 8.2 L Hct 25.5 L MCV MCH 26 L RDW 21.2 H Plt Count 128 L Lymph % (Auto) [place] % (Auto) Lymph # (Auto) [place] # (Auto) Seg Neutrophils % Seg Neuts % (Manual) Lymphocytes % (Manual) Monocytes % (Manual) Basophils % (Manual) Seg Neutrophils # Seg Neutrophils # Man Lymphocytes # (Manual) Monocytes # (Manual) PT INR APTT Fibrinogen D-Dimer ABG pH POC ABG pCO2 POC ABG pO2 ABG pO2 ABG HCO3 ABG O2 Saturation ABG Base Excess ABG Hemoglobin ABG Oxyhemoglobin Oxyhemoglobin Sodium 148 H Potassium Chloride 113.7 H Carbon Dioxide 20 L BUN 57 H Creatinine 1.4 H Glucose 351 H POC Glucose 324 H Lactic Acid Calcium 8.0 L Phosphorus 2.30 L Magnesium AST ALT Alkaline Phosphatase C-Reactive Protein Total Protein Albumin Triglycerides Ur Specific [place] Urine Creatinine Crossmatch 06/17/21 06/17/21 06/17/21 11:49 17:43 21:42 WBC RBC Hgb Hct MCV MCH RDW Plt Count Lymph % (Auto) [place] % (Auto) Lymph # (Auto) [place] # (Auto) Seg Neutrophils % Seg Neuts % (Manual) Lymphocytes % (Manual) Monocytes % (Manual) Basophils % (Manual) Seg Neutrophils # Seg Neutrophils # Man Lymphocytes # (Manual) Monocytes # (Manual) PT INR APTT Fibrinogen D-Dimer ABG pH POC ABG pCO2 POC ABG pO2 ABG pO2 ABG HCO3 ABG O2 Saturation ABG Base Excess ABG Hemoglobin ABG Oxyhemoglobin Oxyhemoglobin Sodium Potassium Chloride Carbon Dioxide BUN Creatinine Glucose POC Glucose 305 H 307 H 286 H Lactic Acid Calcium Phosphorus Magnesium AST ALT Alkaline Phosphatase C-Reactive Protein Total Protein Albumin Triglycerides Ur Specific [place] Urine Creatinine Crossmatch 06/17/21 06/18/21 06/18/21 23:59 04:20 04:37 WBC RBC 3.53 L Hgb 9.1 L Hct 28.7 L MCV MCH 26 L RDW 21.3 H Plt Count Lymph % (Auto) [place] % (Auto) Lymph # (Auto) [place] # (Auto) Seg Neutrophils % Seg Neuts % (Manual) Lymphocytes % (Manual) Monocytes % (Manual) Basophils % (Manual) Seg Neutrophils # Seg Neutrophils # Man Lymphocytes # (Manual) Monocytes # (Manual) PT INR APTT Fibrinogen D-Dimer ABG pH 7.495 H POC ABG pCO2 POC ABG pO2 ABG pO2 108.3 H ABG HCO3 ABG O2 Saturation ABG Base Excess -2.1 L ABG Hemoglobin 10.0 L ABG Oxyhemoglobin Oxyhemoglobin Sodium Potassium Chloride Carbon Dioxide BUN Creatinine Glucose POC Glucose 264 H Lactic Acid Calcium Phosphorus Magnesium AST ALT Alkaline Phosphatase C-Reactive Protein Total Protein Albumin Triglycerides Ur Specific [place] Urine Creatinine Crossmatch 06/18/21 06/18/21 06/18/21 04:37 05:32 11:21 WBC RBC Hgb Hct MCV MCH RDW Plt Count Lymph % (Auto) [place] % (Auto) Lymph # (Auto) [place] # (Auto) Seg Neutrophils % Seg Neuts % (Manual) Lymphocytes % (Manual) Monocytes % (Manual) Basophils % (Manual) Seg Neutrophils # Seg Neutrophils # Man Lymphocytes # (Manual) Monocytes # (Manual) PT INR APTT Fibrinogen D-Dimer ABG pH POC ABG pCO2 POC ABG pO2 ABG pO2 ABG HCO3 ABG O2 Saturation ABG Base Excess ABG Hemoglobin ABG Oxyhemoglobin Oxyhemoglobin Sodium 148 H Potassium Chloride 114.7 H Carbon Dioxide BUN 59 H Creatinine 1.3 H Glucose 329 H POC Glucose 293 H 291 H Lactic Acid Calcium 8.1 L Phosphorus Magnesium AST ALT Alkaline Phosphatase C-Reactive Protein Total Protein Albumin Triglycerides Ur Specific [place] Urine Creatinine Crossmatch 06/18/21 06/18/21 06/19/21 18:21 21:46 00:15 WBC RBC Hgb Hct MCV MCH RDW Plt Count Lymph % (Auto) [place] % (Auto) Lymph # (Auto) [place] # (Auto) Seg Neutrophils % Seg Neuts % (Manual) Lymphocytes % (Manual) Monocytes % (Manual) Basophils % (Manual) Seg Neutrophils # Seg Neutrophils # Man Lymphocytes # (Manual) Monocytes # (Manual) PT INR APTT Fibrinogen D-Dimer ABG pH POC ABG pCO2 POC ABG pO2 ABG pO2 ABG HCO3 ABG O2 Saturation ABG Base Excess ABG Hemoglobin ABG Oxyhemoglobin Oxyhemoglobin Sodium Potassium Chloride Carbon Dioxide BUN Creatinine Glucose POC Glucose 239 H 259 H 310 H Lactic Acid Calcium Phosphorus Magnesium AST ALT Alkaline Phosphatase C-Reactive Protein Total Protein Albumin Triglycerides Ur Specific [place] Urine Creatinine Crossmatch 06/19/21 06/19/21 06/19/21 04:00 04:00 04:50 WBC RBC 3.64 L Hgb 9.1 L Hct 29.1 L MCV MCH 25 L RDW 21.5 H Plt Count Lymph % (Auto) [place] % (Auto) Lymph # (Auto) [place] # (Auto) Seg Neutrophils % Seg Neuts % (Manual) Lymphocytes % (Manual) Monocytes % (Manual) Basophils % (Manual) Seg Neutrophils # Seg Neutrophils # Man Lymphocytes # (Manual) Monocytes # (Manual) PT INR APTT Fibrinogen D-Dimer ABG pH POC ABG pCO2 POC ABG pO2 ABG pO2 78.9 L ABG HCO3 ABG O2 Saturation ABG Base Excess -3.2 L ABG Hemoglobin 7.6 L ABG Oxyhemoglobin Oxyhemoglobin Sodium 148 H Potassium Chloride 114.9 H Carbon Dioxide 19 L BUN 59 H Creatinine Glucose 345 H POC Glucose Lactic Acid Calcium 8.1 L Phosphorus 4.60 H D Magnesium 2.40 H AST ALT Alkaline Phosphatase C-Reactive Protein Total Protein Albumin Triglycerides Ur Specific [place] Urine Creatinine Crossmatch 06/19/21 06/19/21 06/19/21 06:28 11:11 17:20 WBC RBC Hgb Hct MCV MCH RDW Plt Count Lymph % (Auto) [place] % (Auto) Lymph # (Auto) [place] # (Auto) Seg Neutrophils % Seg Neuts % (Manual) Lymphocytes % (Manual) Monocytes % (Manual) Basophils % (Manual) Seg Neutrophils # Seg Neutrophils # Man Lymphocytes # (Manual) Monocytes # (Manual) PT 29.7 H INR 2.57 H APTT Fibrinogen D-Dimer ABG pH POC ABG pCO2 POC ABG pO2 ABG pO2 ABG HCO3 ABG O2 Saturation ABG Base Excess ABG Hemoglobin ABG Oxyhemoglobin Oxyhemoglobin Sodium Potassium Chloride Carbon Dioxide BUN Creatinine Glucose POC Glucose 279 H 275 H Lactic Acid Calcium Phosphorus Magnesium AST ALT Alkaline Phosphatase C-Reactive Protein Total Protein Albumin Triglycerides Ur Specific [place] Urine Creatinine Crossmatch 06/19/21 06/19/21 06/19/21 18:30 19:20 23:27 WBC RBC Hgb 8.0 L Hct 25.0 L MCV MCH RDW Plt Count Lymph % (Auto) [place] % (Auto) Lymph # (Auto) [place] # (Auto) Seg Neutrophils % Seg Neuts % (Manual) Lymphocytes % (Manual) Monocytes % (Manual) Basophils % (Manual) Seg Neutrophils # Seg Neutrophils # Man Lymphocytes # (Manual) Monocytes # (Manual) PT INR APTT Fibrinogen D-Dimer ABG pH POC ABG pCO2 POC ABG pO2 ABG pO2 ABG HCO3 ABG O2 Saturation ABG Base Excess ABG Hemoglobin ABG Oxyhemoglobin Oxyhemoglobin Sodium Potassium Chloride Carbon Dioxide BUN Creatinine Glucose POC Glucose 279 H 290 H Lactic Acid Calcium Phosphorus Magnesium AST ALT Alkaline Phosphatase C-Reactive Protein Total Protein Albumin Triglycerides Ur Specific [place] Urine Creatinine Crossmatch 06/20/21 06/20/21 06/20/21 00:00 04:33 04:33 WBC 22.3 H RBC 3.31 L Hgb 7.4 L 8.5 L Hct 22.5 L 26.5 L MCV MCH 26 L RDW 21.5 H Plt Count Lymph % (Auto) [place] % (Auto) Lymph # (Auto) [place] # (Auto) Seg Neutrophils % Seg Neuts % (Manual) Lymphocytes % (Manual) Monocytes % (Manual) Basophils % (Manual) Seg Neutrophils # Seg Neutrophils # Man Lymphocytes # (Manual) Monocytes # (Manual) PT INR APTT Fibrinogen D-Dimer ABG pH POC ABG pCO2 POC ABG pO2 ABG pO2 ABG HCO3 ABG O2 Saturation ABG Base Excess ABG Hemoglobin ABG Oxyhemoglobin Oxyhemoglobin Sodium 148 H Potassium Chloride 114.2 H Carbon Dioxide BUN 70 H Creatinine 1.4 H Glucose 313 H POC Glucose Lactic Acid Calcium 8.2 L Phosphorus Magnesium 2.50 H AST ALT Alkaline Phosphatase C-Reactive Protein Total Protein Albumin Triglycerides Ur Specific [place] Urine Creatinine Crossmatch 06/20/21 06/20/21 06/20/21 04:33 05:27 11:21 WBC RBC Hgb Hct MCV MCH RDW Plt Count Lymph % (Auto) [place] % (Auto) Lymph # (Auto) [place] # (Auto) Seg Neutrophils % Seg Neuts % (Manual) Lymphocytes % (Manual) Monocytes % (Manual) Basophils % (Manual) Seg Neutrophils # Seg Neutrophils # Man Lymphocytes # (Manual) Monocytes # (Manual) PT 18.3 H INR 1.37 H APTT Fibrinogen D-Dimer ABG pH POC ABG pCO2 POC ABG pO2 ABG pO2 ABG HCO3 ABG O2 Saturation ABG Base Excess ABG Hemoglobin ABG Oxyhemoglobin Oxyhemoglobin Sodium Potassium Chloride Carbon Dioxide BUN Creatinine Glucose POC Glucose 288 H 306 H Lactic Acid Calcium Phosphorus Magnesium AST ALT Alkaline Phosphatase C-Reactive Protein Total Protein Albumin Triglycerides Ur Specific [place] Urine Creatinine Crossmatch 06/20/21 06/20/21 06/20/21 12:23 15:56 18:20 WBC RBC Hgb 8.2 L 8.1 L Hct 25.9 L 25.5 L MCV MCH RDW Plt Count Lymph % (Auto) [place] % (Auto) Lymph # (Auto) [place] # (Auto) Seg Neutrophils % Seg Neuts % (Manual) Lymphocytes % (Manual) Monocytes % (Manual) Basophils % (Manual) Seg Neutrophils # Seg Neutrophils # Man Lymphocytes # (Manual) Monocytes # (Manual) PT INR APTT Fibrinogen D-Dimer ABG pH POC ABG pCO2 POC ABG pO2 ABG pO2 ABG HCO3 ABG O2 Saturation ABG Base Excess ABG Hemoglobin ABG Oxyhemoglobin Oxyhemoglobin Sodium Potassium Chloride Carbon Dioxide BUN Creatinine Glucose POC Glucose 293 H Lactic Acid Calcium Phosphorus Magnesium AST ALT Alkaline Phosphatase C-Reactive Protein Total Protein Albumin Triglycerides Ur Specific [place] Urine Creatinine Crossmatch 06/20/21 06/21/21 06/21/21 23:11 04:20 04:42 WBC 15.1 H RBC 2.84 L Hgb 7.3 L Hct 23.1 L MCV MCH 26 L RDW 21.5 H Plt Count Lymph % (Auto) 3.5 L [place] % (Auto) 11.7 H Lymph # (Auto) 0.5 L [place] # (Auto) 1.8 H Seg Neutrophils % 84.7 H Seg Neuts % (Manual) Lymphocytes % (Manual) Monocytes % (Manual) Basophils % (Manual) Seg Neutrophils # 12.8 H Seg Neutrophils # Man Lymphocytes # (Manual) Monocytes # (Manual) PT INR APTT Fibrinogen D-Dimer ABG pH POC ABG pCO2 POC ABG pO2 ABG pO2 98.5 H ABG HCO3 ABG O2 Saturation ABG Base Excess ABG Hemoglobin 7.2 L ABG Oxyhemoglobin Oxyhemoglobin Sodium Potassium Chloride Carbon Dioxide BUN Creatinine Glucose POC Glucose 206 H Lactic Acid Calcium Phosphorus Magnesium AST ALT Alkaline Phosphatase C-Reactive Protein Total Protein Albumin Triglycerides Ur Specific [place] Urine Creatinine Crossmatch 06/21/21 06/21/21 06/21/21 04:42 05:08 11:06 WBC RBC Hgb Hct MCV MCH RDW Plt Count Lymph % (Auto) [place] % (Auto) Lymph # (Auto) [place] # (Auto) Seg Neutrophils % Seg Neuts % (Manual) Lymphocytes % (Manual) Monocytes % (Manual) Basophils % (Manual) Seg Neutrophils # Seg Neutrophils # Man Lymphocytes # (Manual) Monocytes # (Manual) PT INR APTT Fibrinogen D-Dimer ABG pH POC ABG pCO2 POC ABG pO2 ABG pO2 ABG HCO3 ABG O2 Saturation ABG Base Excess ABG Hemoglobin ABG Oxyhemoglobin Oxyhemoglobin Sodium 151 H Potassium Chloride 117.2 H Carbon Dioxide 21 L BUN 75 H Creatinine 1.6 H Glucose 216 H POC Glucose 190 H 204 H Lactic Acid Calcium 7.9 L Phosphorus Magnesium 2.60 H AST ALT Alkaline Phosphatase C-Reactive Protein Total Protein Albumin Triglycerides 254 H Ur Specific [place] Urine Creatinine Crossmatch 06/21/21 06/21/21 06/21/21 14:00 16:42 21:52 WBC RBC Hgb 7.1 L 7.2 L Hct 22.0 L 22.1 L MCV MCH RDW Plt Count Lymph % (Auto) [place] % (Auto) Lymph # (Auto) [place] # (Auto) Seg Neutrophils % Seg Neuts % (Manual) Lymphocytes % (Manual) Monocytes % (Manual) Basophils % (Manual) Seg Neutrophils # Seg Neutrophils # Man Lymphocytes # (Manual) Monocytes # (Manual) PT INR APTT Fibrinogen D-Dimer ABG pH POC ABG pCO2 POC ABG pO2 ABG pO2 ABG HCO3 ABG O2 Saturation ABG Base Excess ABG Hemoglobin ABG Oxyhemoglobin Oxyhemoglobin Sodium Potassium Chloride Carbon Dioxide BUN Creatinine Glucose POC Glucose 207 H Lactic Acid Calcium Phosphorus Magnesium AST ALT Alkaline Phosphatase C-Reactive Protein Total Protein Albumin Triglycerides Ur Specific [place] Urine Creatinine Crossmatch 06/21/21 06/22/21 06/22/21 23:29 04:30 04:30 WBC 16.8 H RBC 2.93 L Hgb 7.4 L Hct 23.9 L MCV MCH 25 L RDW 21.8 H Plt Count Lymph % (Auto) [place] % (Auto) Lymph # (Auto) [place] # (Auto) Seg Neutrophils % Seg Neuts % (Manual) Lymphocytes % (Manual) Monocytes % (Manual) Basophils % (Manual) Seg Neutrophils # Seg Neutrophils # Man Lymphocytes # (Manual) Monocytes # (Manual) PT INR APTT Fibrinogen D-Dimer ABG pH POC ABG pCO2 POC ABG pO2 ABG pO2 ABG HCO3 ABG O2 Saturation ABG Base Excess ABG Hemoglobin ABG Oxyhemoglobin Oxyhemoglobin Sodium 151 H Potassium Chloride 118.7 H Carbon Dioxide BUN 57 H Creatinine Glucose 238 H POC Glucose 273 H Lactic Acid Calcium 8.0 L Phosphorus Magnesium 2.70 H AST ALT Alkaline Phosphatase C-Reactive Protein Total Protein Albumin Triglycerides Ur Specific [place] Urine Creatinine Crossmatch 06/22/21 06/22/21 06/22/21 05:17 11:31 14:20 WBC RBC Hgb 7.4 L Hct 22.5 L MCV MCH RDW Plt Count Lymph % (Auto) [place] % (Auto) Lymph # (Auto) [place] # (Auto) Seg Neutrophils % Seg Neuts % (Manual) Lymphocytes % (Manual) Monocytes % (Manual) Basophils % (Manual) Seg Neutrophils # Seg Neutrophils # Man Lymphocytes # (Manual) Monocytes # (Manual) PT INR APTT Fibrinogen D-Dimer ABG pH POC ABG pCO2 POC ABG pO2 ABG pO2 ABG HCO3 ABG O2 Saturation ABG Base Excess ABG Hemoglobin ABG Oxyhemoglobin Oxyhemoglobin Sodium Potassium Chloride Carbon Dioxide BUN Creatinine Glucose POC Glucose 214 H 214 H Lactic Acid Calcium Phosphorus Magnesium AST ALT Alkaline Phosphatase C-Reactive Protein Total Protein Albumin Triglycerides Ur Specific [place] Urine Creatinine Crossmatch 06/22/21 06/22/21 06/23/21 17:18 23:47 05:33 WBC RBC Hgb Hct MCV MCH RDW Plt Count Lymph % (Auto) [place] % (Auto) Lymph # (Auto) [place] # (Auto) Seg Neutrophils % Seg Neuts % (Manual) Lymphocytes % (Manual) Monocytes % (Manual) Basophils % (Manual) Seg Neutrophils # Seg Neutrophils # Man Lymphocytes # (Manual) Monocytes # (Manual) PT INR APTT Fibrinogen D-Dimer ABG pH POC ABG pCO2 POC ABG pO2 ABG pO2 ABG HCO3 ABG O2 Saturation ABG Base Excess ABG Hemoglobin ABG Oxyhemoglobin Oxyhemoglobin Sodium Potassium Chloride Carbon Dioxide BUN Creatinine Glucose POC Glucose 238 H 227 H 202 H Lactic Acid Calcium Phosphorus Magnesium AST ALT Alkaline Phosphatase C-Reactive Protein Total Protein Albumin Triglycerides Ur Specific [place] Urine Creatinine Crossmatch 06/23/21 06/23/21 06/23/21 10:04 10:04 11:06 WBC 20.3 H RBC 2.71 L Hgb 7.3 L Hct 21.8 L MCV MCH 27 L RDW 22.1 H Plt Count Lymph % (Auto) [place] % (Auto) Lymph # (Auto) [place] # (Auto) Seg Neutrophils % Seg Neuts % (Manual) Lymphocytes % (Manual) Monocytes % (Manual) Basophils % (Manual) Seg Neutrophils # Seg Neutrophils # Man Lymphocytes # (Manual) Monocytes # (Manual) PT INR APTT Fibrinogen D-Dimer ABG pH POC ABG pCO2 POC ABG pO2 ABG pO2 ABG HCO3 ABG O2 Saturation ABG Base Excess ABG Hemoglobin ABG Oxyhemoglobin Oxyhemoglobin Sodium 151 H Potassium 3.2 L Chloride 116.9 H Carbon Dioxide BUN 40 H Creatinine Glucose 208 H POC Glucose 204 H Lactic Acid Calcium 8.0 L Phosphorus 1.80 L D Magnesium AST ALT Alkaline Phosphatase C-Reactive Protein Total Protein Albumin Triglycerides Ur Specific [place] Urine Creatinine Crossmatch 06/23/21 06/23/21 06/24/21 16:11 23:47 04:00 WBC 16.9 H RBC 2.49 L Hgb 6.6 L Hct 20.3 L MCV MCH 26 L RDW 22.6 H Plt Count Lymph % (Auto) [place] % (Auto) Lymph # (Auto) [place] # (Auto) Seg Neutrophils % Seg Neuts % (Manual) Lymphocytes % (Manual) Monocytes % (Manual) Basophils % (Manual) Seg Neutrophils # Seg Neutrophils # Man Lymphocytes # (Manual) Monocytes # (Manual) PT INR APTT Fibrinogen D-Dimer ABG pH POC ABG pCO2 POC ABG pO2 ABG pO2 ABG HCO3 ABG O2 Saturation ABG Base Excess ABG Hemoglobin ABG Oxyhemoglobin Oxyhemoglobin Sodium Potassium Chloride Carbon Dioxide BUN Creatinine Glucose POC Glucose 228 H 189 H Lactic Acid Calcium Phosphorus Magnesium AST ALT Alkaline Phosphatase C-Reactive Protein Total Protein Albumin Triglycerides Ur Specific [place] Urine Creatinine Crossmatch 06/24/21 06/24/21 06/24/21 04:00 05:43 06:40 WBC RBC Hgb Hct MCV MCH RDW Plt Count Lymph % (Auto) [place] % (Auto) Lymph # (Auto) [place] # (Auto) Seg Neutrophils % Seg Neuts % (Manual) Lymphocytes % (Manual) Monocytes % (Manual) Basophils % (Manual) Seg Neutrophils # Seg Neutrophils # Man Lymphocytes # (Manual) Monocytes # (Manual) PT INR APTT Fibrinogen D-Dimer ABG pH POC ABG pCO2 POC ABG pO2 ABG pO2 ABG HCO3 ABG O2 Saturation ABG Base Excess ABG Hemoglobin ABG Oxyhemoglobin Oxyhemoglobin Sodium 148 H Potassium 3.2 L Chloride 115.6 H Carbon Dioxide BUN 35 H Creatinine Glucose 153 H POC Glucose 134 H Lactic Acid Calcium 7.9 L Phosphorus 2.40 L D Magnesium AST ALT Alkaline Phosphatase C-Reactive Protein Total Protein Albumin Triglycerides Ur Specific [place] Urine Creatinine Crossmatch See Detail 06/24/21 06/24/21 06/24/21 11:08 16:47 21:49 WBC RBC Hgb Hct MCV MCH RDW Plt Count Lymph % (Auto) [place] % (Auto) Lymph # (Auto) [place] # (Auto) Seg Neutrophils % Seg Neuts % (Manual) Lymphocytes % (Manual) Monocytes % (Manual) Basophils % (Manual) Seg Neutrophils # Seg Neutrophils # Man Lymphocytes # (Manual) Monocytes # (Manual) PT INR APTT Fibrinogen D-Dimer ABG pH POC ABG pCO2 POC ABG pO2 ABG pO2 ABG HCO3 ABG O2 Saturation ABG Base Excess ABG Hemoglobin ABG Oxyhemoglobin Oxyhemoglobin Sodium Potassium Chloride Carbon Dioxide BUN Creatinine Glucose POC Glucose 153 H 201 H 132 H Lactic Acid Calcium Phosphorus Magnesium AST ALT Alkaline Phosphatase C-Reactive Protein Total Protein Albumin Triglycerides Ur Specific [place] Urine Creatinine Crossmatch 06/24/21 06/25/21 06/25/21 23:24 05:30 09:00 WBC RBC Hgb 8.3 L Hct 27.0 L MCV MCH RDW Plt Count Lymph % (Auto) [place] % (Auto) Lymph # (Auto) [place] # (Auto) Seg Neutrophils % Seg Neuts % (Manual) Lymphocytes % (Manual) Monocytes % (Manual) Basophils % (Manual) Seg Neutrophils # Seg Neutrophils # Man Lymphocytes # (Manual) Monocytes # (Manual) PT INR APTT Fibrinogen D-Dimer ABG pH POC ABG pCO2 POC ABG pO2 ABG pO2 ABG HCO3 ABG O2 Saturation ABG Base Excess ABG Hemoglobin ABG Oxyhemoglobin Oxyhemoglobin Sodium Potassium Chloride Carbon Dioxide BUN Creatinine Glucose POC Glucose 170 H 151 H Lactic Acid Calcium Phosphorus Magnesium AST ALT Alkaline Phosphatase C-Reactive Protein Total Protein Albumin Triglycerides Ur Specific [place] Urine Creatinine Crossmatch 06/25/21 06/25/21 06/25/21 11:29 14:24 16:48 WBC RBC Hgb 8.5 L Hct 27.5 L MCV MCH RDW Plt Count Lymph % (Auto) [place] % (Auto) Lymph # (Auto) [place] # (Auto) Seg Neutrophils % Seg Neuts % (Manual) Lymphocytes % (Manual) Monocytes % (Manual) Basophils % (Manual) Seg Neutrophils # Seg Neutrophils # Man Lymphocytes # (Manual) Monocytes # (Manual) PT INR APTT Fibrinogen D-Dimer ABG pH POC ABG pCO2 POC ABG pO2 ABG pO2 ABG HCO3 ABG O2 Saturation ABG Base Excess ABG Hemoglobin ABG Oxyhemoglobin Oxyhemoglobin Sodium Potassium Chloride Carbon Dioxide BUN Creatinine Glucose POC Glucose 189 H 224 H Lactic Acid Calcium Phosphorus Magnesium AST ALT Alkaline Phosphatase C-Reactive Protein Total Protein Albumin Triglycerides Ur Specific [place] Urine Creatinine Crossmatch 06/25/21 06/25/21 06/25/21 23:39 Unknown Unknown WBC 16.5 H RBC 2.90 L Hgb 8.0 L Hct 23.8 L MCV MCH RDW 22.8 H Plt Count Lymph % (Auto) [place] % (Auto) Lymph # (Auto) [place] # (Auto) Seg Neutrophils % Seg Neuts % (Manual) Lymphocytes % (Manual) Monocytes % (Manual) Basophils % (Manual) Seg Neutrophils # Seg Neutrophils # Man Lymphocytes # (Manual) Monocytes # (Manual) PT INR APTT Fibrinogen D-Dimer ABG pH POC ABG pCO2 POC ABG pO2 ABG pO2 ABG HCO3 ABG O2 Saturation ABG Base Excess ABG Hemoglobin ABG Oxyhemoglobin Oxyhemoglobin Sodium 149 H Potassium Chloride 115.6 H Carbon Dioxide BUN 28 H Creatinine Glucose 157 H POC Glucose 187 H Lactic Acid Calcium 8.0 L Phosphorus Magnesium AST ALT Alkaline Phosphatase C-Reactive Protein Total Protein Albumin Triglycerides Ur Specific [place] Urine Creatinine Crossmatch 06/26/21 06/26/21 06/26/21 05:22 05:29 05:29 WBC 16.2 H RBC 3.03 L Hgb 8.0 L Hct 25.1 L MCV MCH 26 L RDW 23.2 H Plt Count Lymph % (Auto) [place] % (Auto) Lymph # (Auto) [place] # (Auto) Seg Neutrophils % Seg Neuts % (Manual) Lymphocytes % (Manual) Monocytes % (Manual) Basophils % (Manual) Seg Neutrophils # Seg Neutrophils # Man Lymphocytes # (Manual) Monocytes # (Manual) PT INR APTT Fibrinogen D-Dimer ABG pH POC ABG pCO2 POC ABG pO2 ABG pO2 ABG HCO3 ABG O2 Saturation ABG Base Excess ABG Hemoglobin ABG Oxyhemoglobin Oxyhemoglobin Sodium 150 H Potassium Chloride 114.8 H Carbon Dioxide BUN 29 H Creatinine Glucose 229 H POC Glucose 211 H Lactic Acid Calcium 8.2 L Phosphorus Magnesium AST ALT Alkaline Phosphatase C-Reactive Protein Total Protein Albumin Triglycerides Ur Specific [place] Urine Creatinine Crossmatch 06/26/21 06/26/21 06/26/21 11:05 15:59 22:00 WBC RBC Hgb Hct MCV MCH RDW Plt Count Lymph % (Auto) [place] % (Auto) Lymph # (Auto) [place] # (Auto) Seg Neutrophils % Seg Neuts % (Manual) Lymphocytes % (Manual) Monocytes % (Manual) Basophils % (Manual) Seg Neutrophils # Seg Neutrophils # Man Lymphocytes # (Manual) Monocytes # (Manual) PT INR APTT Fibrinogen D-Dimer ABG pH POC ABG pCO2 POC ABG pO2 ABG pO2 ABG HCO3 ABG O2 Saturation ABG Base Excess ABG Hemoglobin ABG Oxyhemoglobin Oxyhemoglobin Sodium Potassium Chloride Carbon Dioxide BUN Creatinine Glucose POC Glucose 213 H 222 H 161 H Lactic Acid Calcium Phosphorus Magnesium AST ALT Alkaline Phosphatase C-Reactive Protein Total Protein Albumin Triglycerides Ur Specific [place] Urine Creatinine Crossmatch 06/26/21 06/27/21 06/27/21 23:24 04:15 04:15 WBC 14.3 H RBC 2.96 L Hgb 8.1 L Hct 24.6 L MCV MCH 27 L RDW 23.0 H Plt Count Lymph % (Auto) [place] % (Auto) Lymph # (Auto) [place] # (Auto) Seg Neutrophils % Seg Neuts % (Manual) Lymphocytes % (Manual) Monocytes % (Manual) Basophils % (Manual) Seg Neutrophils # Seg Neutrophils # Man Lymphocytes # (Manual) Monocytes # (Manual) PT INR APTT Fibrinogen D-Dimer ABG pH POC ABG pCO2 POC ABG pO2 ABG pO2 ABG HCO3 ABG O2 Saturation ABG Base Excess ABG Hemoglobin ABG Oxyhemoglobin Oxyhemoglobin Sodium 150 H Potassium Chloride 113.8 H Carbon Dioxide BUN 26 H Creatinine Glucose 246 H POC Glucose 164 H Lactic Acid Calcium 7.8 L Phosphorus Magnesium AST ALT Alkaline Phosphatase C-Reactive Protein Total Protein Albumin Triglycerides Ur Specific [place] Urine Creatinine Crossmatch 06/27/21 06/27/21 06/27/21 05:44 11:07 16:06 WBC RBC Hgb Hct MCV MCH RDW Plt Count Lymph % (Auto) [place] % (Auto) Lymph # (Auto) [place] # (Auto) Seg Neutrophils % Seg Neuts % (Manual) Lymphocytes % (Manual) Monocytes % (Manual) Basophils % (Manual) Seg Neutrophils # Seg Neutrophils # Man Lymphocytes # (Manual) Monocytes # (Manual) PT INR APTT Fibrinogen D-Dimer ABG pH POC ABG pCO2 POC ABG pO2 ABG pO2 ABG HCO3 ABG O2 Saturation ABG Base Excess ABG Hemoglobin ABG Oxyhemoglobin Oxyhemoglobin Sodium Potassium Chloride Carbon Dioxide BUN Creatinine Glucose POC Glucose 226 H 204 H 224 H Lactic Acid Calcium Phosphorus Magnesium AST ALT Alkaline Phosphatase C-Reactive Protein Total Protein Albumin Triglycerides Ur Specific [place] Urine Creatinine Crossmatch 06/27/21 06/28/21 06/28/21 23:49 04:00 04:00 WBC 15.4 H RBC 3.05 L Hgb 8.2 L Hct 25.0 L MCV MCH 27 L RDW 22.6 H Plt Count Lymph % (Auto) [place] % (Auto) Lymph # (Auto) [place] # (Auto) Seg Neutrophils % Seg Neuts % (Manual) Lymphocytes % (Manual) Monocytes % (Manual) Basophils % (Manual) Seg Neutrophils # Seg Neutrophils # Man Lymphocytes # (Manual) Monocytes # (Manual) PT INR APTT Fibrinogen D-Dimer ABG pH POC ABG pCO2 POC ABG pO2 ABG pO2 ABG HCO3 ABG O2 Saturation ABG Base Excess ABG Hemoglobin ABG Oxyhemoglobin Oxyhemoglobin Sodium 152 H Potassium 3.0 L Chloride 114.9 H Carbon Dioxide BUN 24 H Creatinine Glucose 158 H POC Glucose 195 H Lactic Acid Calcium 8.1 L Phosphorus Magnesium AST ALT Alkaline Phosphatase C-Reactive Protein Total Protein Albumin Triglycerides Ur Specific [place] Urine Creatinine Crossmatch 06/28/21 06/28/21 06/28/21 05:05 11:47 17:21 WBC RBC Hgb Hct MCV MCH RDW Plt Count Lymph % (Auto) [place] % (Auto) Lymph # (Auto) [place] # (Auto) Seg Neutrophils % Seg Neuts % (Manual) Lymphocytes % (Manual) Monocytes % (Manual) Basophils % (Manual) Seg Neutrophils # Seg Neutrophils # Man Lymphocytes # (Manual) Monocytes # (Manual) PT INR APTT Fibrinogen D-Dimer ABG pH POC ABG pCO2 POC ABG pO2 ABG pO2 ABG HCO3 ABG O2 Saturation ABG Base Excess ABG Hemoglobin ABG Oxyhemoglobin Oxyhemoglobin Sodium Potassium Chloride Carbon Dioxide BUN Creatinine Glucose POC Glucose 121 H 164 H 166 H Lactic Acid Calcium Phosphorus Magnesium AST ALT Alkaline Phosphatase C-Reactive Protein Total Protein Albumin Triglycerides Ur Specific [place] Urine Creatinine Crossmatch 06/28/21 06/28/21 06/29/21 18:14 21:54 00:55 WBC RBC Hgb Hct MCV MCH RDW Plt Count Lymph % (Auto) [place] % (Auto) Lymph # (Auto) [place] # (Auto) Seg Neutrophils % Seg Neuts % (Manual) Lymphocytes % (Manual) Monocytes % (Manual) Basophils % (Manual) Seg Neutrophils # Seg Neutrophils # Man Lymphocytes # (Manual) Monocytes # (Manual) PT INR APTT Fibrinogen D-Dimer ABG pH POC ABG pCO2 POC ABG pO2 ABG pO2 ABG HCO3 ABG O2 Saturation ABG Base Excess ABG Hemoglobin ABG Oxyhemoglobin Oxyhemoglobin Sodium Potassium Chloride Carbon Dioxide BUN Creatinine Glucose POC Glucose 150 H 148 H 176 H Lactic Acid Calcium Phosphorus Magnesium AST ALT Alkaline Phosphatase C-Reactive Protein Total Protein Albumin Triglycerides Ur Specific [place] Urine Creatinine Crossmatch 06/29/21 06/29/21 06/29/21 04:00 04:00 05:20 WBC 15.3 H RBC 3.04 L Hgb 8.0 L Hct 25.0 L MCV MCH 26 L RDW 22.3 H Plt Count Lymph % (Auto) [place] % (Auto) Lymph # (Auto) [place] # (Auto) Seg Neutrophils % Seg Neuts % (Manual) Lymphocytes % (Manual) Monocytes % (Manual) Basophils % (Manual) Seg Neutrophils # Seg Neutrophils # Man Lymphocytes # (Manual) Monocytes # (Manual) PT INR APTT Fibrinogen D-Dimer ABG pH POC ABG pCO2 POC ABG pO2 ABG pO2 ABG HCO3 ABG O2 Saturation ABG Base Excess ABG Hemoglobin ABG Oxyhemoglobin Oxyhemoglobin Sodium Potassium 3.1 L Chloride 108.7 H Carbon Dioxide BUN 20 H Creatinine Glucose 194 H POC Glucose 185 H Lactic Acid Calcium 8.0 L Phosphorus Magnesium AST ALT Alkaline Phosphatase C-Reactive Protein Total Protein Albumin Triglycerides Ur Specific [place] Urine Creatinine Crossmatch 06/29/21 06/29/21 06/30/21 12:18 17:20 00:49 WBC RBC Hgb Hct MCV MCH RDW Plt Count Lymph % (Auto) [place] % (Auto) Lymph # (Auto) [place] # (Auto) Seg Neutrophils % Seg Neuts % (Manual) Lymphocytes % (Manual) Monocytes % (Manual) Basophils % (Manual) Seg Neutrophils # Seg Neutrophils # Man Lymphocytes # (Manual) Monocytes # (Manual) PT INR APTT Fibrinogen D-Dimer ABG pH POC ABG pCO2 POC ABG pO2 ABG pO2 ABG HCO3 ABG O2 Saturation ABG Base Excess ABG Hemoglobin ABG Oxyhemoglobin Oxyhemoglobin Sodium Potassium Chloride Carbon Dioxide BUN Creatinine Glucose POC Glucose 135 H 185 H 156 H Lactic Acid Calcium Phosphorus Magnesium AST ALT Alkaline Phosphatase C-Reactive Protein Total Protein Albumin Triglycerides Ur Specific [place] Urine Creatinine Crossmatch 06/30/21 06/30/21 06/30/21 04:25 04:25 08:14 WBC 13.0 H RBC 3.19 L Hgb 8.2 L Hct 26.2 L MCV MCH 26 L RDW 22.3 H Plt Count Lymph % (Auto) [place] % (Auto) Lymph # (Auto) [place] # (Auto) Seg Neutrophils % Seg Neuts % (Manual) 81.0 H Lymphocytes % (Manual) 10.0 L Monocytes % (Manual) 8.0 H Basophils % (Manual) Seg Neutrophils # Seg Neutrophils # Man 10.5 H Lymphocytes # (Manual) Monocytes # (Manual) 1.0 H PT INR APTT Fibrinogen D-Dimer ABG pH POC ABG pCO2 POC ABG pO2 ABG pO2 ABG HCO3 ABG O2 Saturation ABG Base Excess ABG Hemoglobin ABG Oxyhemoglobin Oxyhemoglobin Sodium Potassium 3.0 L Chloride Carbon Dioxide BUN 20 H Creatinine Glucose 104 H POC Glucose 119 H Lactic Acid Calcium 8.3 L Phosphorus Magnesium AST ALT Alkaline Phosphatase C-Reactive Protein Total Protein Albumin Triglycerides Ur Specific [place] Urine Creatinine Crossmatch 06/30/21 06/30/21 06/30/21 11:36 16:24 22:44 WBC RBC Hgb Hct MCV MCH RDW Plt Count Lymph % (Auto) [place] % (Auto) Lymph # (Auto) [place] # (Auto) Seg Neutrophils % Seg Neuts % (Manual) Lymphocytes % (Manual) Monocytes % (Manual) Basophils % (Manual) Seg Neutrophils # Seg Neutrophils # Man Lymphocytes # (Manual) Monocytes # (Manual) PT INR APTT Fibrinogen D-Dimer ABG pH POC ABG pCO2 POC ABG pO2 ABG pO2 ABG HCO3 ABG O2 Saturation ABG Base Excess ABG Hemoglobin ABG Oxyhemoglobin Oxyhemoglobin Sodium Potassium Chloride Carbon Dioxide BUN Creatinine Glucose POC Glucose 154 H 208 H 174 H Lactic Acid Calcium Phosphorus Magnesium AST ALT Alkaline Phosphatase C-Reactive Protein Total Protein Albumin Triglycerides Ur Specific [place] Urine Creatinine Crossmatch 07/01/21 07/01/21 07/01/21 05:29 05:29 05:54 WBC 11.9 H RBC 3.00 L Hgb 8.1 L Hct 24.4 L MCV MCH 27 L RDW 21.7 H Plt Count Lymph % (Auto) [place] % (Auto) Lymph # (Auto) [place] # (Auto) Seg Neutrophils % Seg Neuts % (Manual) Lymphocytes % (Manual) Monocytes % (Manual) Basophils % (Manual) Seg Neutrophils # Seg Neutrophils # Man Lymphocytes # (Manual) Monocytes # (Manual) PT INR APTT Fibrinogen D-Dimer ABG pH POC ABG pCO2 POC ABG pO2 ABG pO2 ABG HCO3 ABG O2 Saturation ABG Base Excess ABG Hemoglobin ABG Oxyhemoglobin Oxyhemoglobin Sodium Potassium Chloride Carbon Dioxide BUN Creatinine Glucose 177 H POC Glucose 170 H Lactic Acid Calcium Phosphorus Magnesium AST ALT Alkaline Phosphatase C-Reactive Protein Total Protein Albumin Triglycerides Ur Specific [place] Urine Creatinine Crossmatch 07/01/21 07/02/21 07/02/21 10:54 05:05 10:18 WBC RBC Hgb Hct MCV MCH RDW Plt Count Lymph % (Auto) [place] % (Auto) Lymph # (Auto) [place] # (Auto) Seg Neutrophils % Seg Neuts % (Manual) Lymphocytes % (Manual) Monocytes % (Manual) Basophils % (Manual) Seg Neutrophils # Seg Neutrophils # Man Lymphocytes # (Manual) Monocytes # (Manual) PT INR APTT Fibrinogen D-Dimer ABG pH 7.488 H POC ABG pCO2 POC ABG pO2 ABG pO2 97.2 H ABG HCO3 27.1 H ABG O2 Saturation ABG Base Excess 3.5 H ABG Hemoglobin 7.9 L ABG Oxyhemoglobin Oxyhemoglobin Sodium Potassium Chloride Carbon Dioxide BUN Creatinine Glucose POC Glucose 184 H 182 H Lactic Acid Calcium Phosphorus Magnesium AST ALT Alkaline Phosphatase C-Reactive Protein Total Protein Albumin Triglycerides Ur Specific [place] Urine Creatinine Crossmatch 07/02/21 07/02/21 07/02/21 12:14 16:18 22:27 WBC RBC Hgb Hct MCV MCH RDW Plt Count Lymph % (Auto) [place] % (Auto) Lymph # (Auto) [place] # (Auto) Seg Neutrophils % Seg Neuts % (Manual) Lymphocytes % (Manual) Monocytes % (Manual) Basophils % (Manual) Seg Neutrophils # Seg Neutrophils # Man Lymphocytes # (Manual) Monocytes # (Manual) PT INR APTT Fibrinogen D-Dimer ABG pH 7.199 L* POC ABG pCO2 POC ABG pO2 ABG pO2 104.5 H ABG HCO3 30.3 H ABG O2 Saturation ABG Base Excess ABG Hemoglobin 9.8 L ABG Oxyhemoglobin Oxyhemoglobin 94.6 L Sodium Potassium Chloride Carbon Dioxide BUN Creatinine Glucose POC Glucose 184 H 194 H Lactic Acid Calcium Phosphorus Magnesium AST ALT Alkaline Phosphatase C-Reactive Protein Total Protein Albumin Triglycerides Ur Specific [place] Urine Creatinine Crossmatch 07/03/21 07/03/21 07/03/21 09:47 10:44 11:24 WBC RBC 3.01 L Hgb 8.3 L Hct 24.3 L MCV MCH RDW 21.7 H Plt Count Lymph % (Auto) 8.4 L [place] % (Auto) Lymph # (Auto) 0.8 L [place] # (Auto) Seg Neutrophils % 80.6 H Seg Neuts % (Manual) Lymphocytes % (Manual) Monocytes % (Manual) Basophils % (Manual) Seg Neutrophils # Seg Neutrophils # Man Lymphocytes # (Manual) Monocytes # (Manual) PT INR APTT Fibrinogen D-Dimer ABG pH POC ABG pCO2 POC ABG pO2 ABG pO2 ABG HCO3 ABG O2 Saturation ABG Base Excess ABG Hemoglobin ABG Oxyhemoglobin Oxyhemoglobin Sodium Potassium 3.0 L Chloride Carbon Dioxide BUN Creatinine Glucose 200 H POC Glucose 180 H Lactic Acid Calcium 8.3 L Phosphorus Magnesium AST ALT Alkaline Phosphatase C-Reactive Protein Total Protein Albumin Triglycerides Ur Specific [place] Urine Creatinine Crossmatch 07/03/21 07/03/21 07/03/21 16:34 22:14 22:15 WBC RBC Hgb Hct MCV MCH RDW Plt Count Lymph % (Auto) [place] % (Auto) Lymph # (Auto) [place] # (Auto) Seg Neutrophils % Seg Neuts % (Manual) Lymphocytes % (Manual) Monocytes % (Manual) Basophils % (Manual) Seg Neutrophils # Seg Neutrophils # Man Lymphocytes # (Manual) Monocytes # (Manual) PT INR APTT Fibrinogen D-Dimer ABG pH POC ABG pCO2 POC ABG pO2 ABG pO2 ABG HCO3 ABG O2 Saturation ABG Base Excess ABG Hemoglobin ABG Oxyhemoglobin Oxyhemoglobin Sodium Potassium Chloride Carbon Dioxide BUN Creatinine Glucose POC Glucose 165 H 174 H 180 H Lactic Acid Calcium Phosphorus Magnesium AST ALT Alkaline Phosphatase C-Reactive Protein Total Protein Albumin Triglycerides Ur Specific [place] Urine Creatinine Crossmatch 07/04/21 07/04/21 07/04/21 00:28 01:44 05:07 WBC RBC Hgb Hct MCV MCH RDW Plt Count Lymph % (Auto) [place] % (Auto) Lymph # (Auto) [place] # (Auto) Seg Neutrophils % Seg Neuts % (Manual) Lymphocytes % (Manual) Monocytes % (Manual) Basophils % (Manual) Seg Neutrophils # Seg Neutrophils # Man Lymphocytes # (Manual) Monocytes # (Manual) PT INR APTT Fibrinogen D-Dimer ABG pH POC ABG pCO2 POC ABG pO2 ABG pO2 107.7 H ABG HCO3 26.7 H ABG O2 Saturation ABG Base Excess ABG Hemoglobin 7.5 L ABG Oxyhemoglobin Oxyhemoglobin Sodium Potassium Chloride Carbon Dioxide BUN Creatinine Glucose POC Glucose 246 H 179 H Lactic Acid Calcium Phosphorus Magnesium AST ALT Alkaline Phosphatase C-Reactive Protein Total Protein Albumin Triglycerides Ur Specific [place] Urine Creatinine Crossmatch 07/04/21 07/04/2122 05:13 05:13 10:52 WBC RBC 3.12 L Hgb 8.5 L Hct 25.2 L MCV MCH 27 L RDW 21.3 H Plt Count Lymph % (Auto) 6.1 L [place] % (Auto) Lymph # (Auto) 0.6 L [place] # (Auto) Seg Neutrophils % 85.0 H Seg Neuts % (Manual) Lymphocytes % (Manual) Monocytes % (Manual) Basophils % (Manual) Seg Neutrophils # 8.0 H Seg Neutrophils # Man Lymphocytes # (Manual) Monocytes # (Manual) PT INR APTT Fibrinogen D-Dimer ABG pH POC ABG pCO2 POC ABG pO2 ABG pO2 ABG HCO3 ABG O2 Saturation ABG Base Excess ABG Hemoglobin ABG Oxyhemoglobin Oxyhemoglobin Sodium Potassium 3.4 L Chloride Carbon Dioxide BUN Creatinine Glucose 205 H POC Glucose 146 H Lactic Acid Calcium Phosphorus Magnesium AST ALT Alkaline Phosphatase C-Reactive Protein Total Protein Albumin Triglycerides Ur Specific [place] Urine Creatinine Crossmatch 07/04/21 07/04/21 07/05/21 16:22 23:52 04:38 WBC RBC Hgb Hct MCV MCH RDW Plt Count Lymph % (Auto) [place] % (Auto) Lymph # (Auto) [place] # (Auto) Seg Neutrophils % Seg Neuts % (Manual) Lymphocytes % (Manual) Monocytes % (Manual) Basophils % (Manual) Seg Neutrophils # Seg Neutrophils # Man Lymphocytes # (Manual) Monocytes # (Manual) PT INR APTT Fibrinogen D-Dimer ABG pH POC ABG pCO2 POC ABG pO2 ABG pO2 ABG HCO3 ABG O2 Saturation ABG Base Excess ABG Hemoglobin ABG Oxyhemoglobin Oxyhemoglobin Sodium Potassium 3.0 L Chloride Carbon Dioxide BUN 18 H Creatinine Glucose 174 H POC Glucose 154 H 193 H Lactic Acid Calcium Phosphorus 2.20 L Magnesium AST ALT Alkaline Phosphatase C-Reactive Protein Total Protein Albumin Triglycerides Ur Specific [place] Urine Creatinine Crossmatch 07/05/21 07/05/21 07/05/21 04:38 05:15 12:35 WBC RBC 2.95 L Hgb 7.8 L Hct 23.9 L MCV MCH 27 L RDW 21.0 H Plt Count Lymph % (Auto) [place] % (Auto) Lymph # (Auto) [place] # (Auto) Seg Neutrophils % Seg Neuts % (Manual) Lymphocytes % (Manual) Monocytes % (Manual) Basophils % (Manual) Seg Neutrophils # Seg Neutrophils # Man Lymphocytes # (Manual) Monocytes # (Manual) PT INR APTT Fibrinogen D-Dimer ABG pH POC ABG pCO2 POC ABG pO2 ABG pO2 ABG HCO3 ABG O2 Saturation ABG Base Excess ABG Hemoglobin ABG Oxyhemoglobin Oxyhemoglobin Sodium Potassium Chloride Carbon Dioxide BUN Creatinine Glucose POC Glucose 163 H 121 H Lactic Acid Calcium Phosphorus Magnesium AST ALT Alkaline Phosphatase C-Reactive Protein Total Protein Albumin Triglycerides Ur Specific [place] Urine Creatinine Crossmatch 07/05/21 07/05/21 07/05/21 18:27 21:05 23:11 WBC RBC Hgb Hct MCV MCH RDW Plt Count Lymph % (Auto) [place] % (Auto) Lymph # (Auto) [place] # (Auto) Seg Neutrophils % Seg Neuts % (Manual) Lymphocytes % (Manual) Monocytes % (Manual) Basophils % (Manual) Seg Neutrophils # Seg Neutrophils # Man Lymphocytes # (Manual) Monocytes # (Manual) PT INR APTT Fibrinogen D-Dimer ABG pH POC ABG pCO2 POC ABG pO2 ABG pO2 ABG HCO3 ABG O2 Saturation ABG Base Excess ABG Hemoglobin ABG Oxyhemoglobin Oxyhemoglobin Sodium Potassium Chloride Carbon Dioxide BUN Creatinine Glucose POC Glucose 183 H 170 H 184 H Lactic Acid Calcium Phosphorus Magnesium AST ALT Alkaline Phosphatase C-Reactive Protein Total Protein Albumin Triglycerides Ur Specific [place] Urine Creatinine Crossmatch 07/06/21 07/06/21 07/06/21 04:39 05:13 12:12 WBC RBC Hgb Hct MCV MCH RDW Plt Count Lymph % (Auto) [place] % (Auto) Lymph # (Auto) [place] # (Auto) Seg Neutrophils % Seg Neuts % (Manual) Lymphocytes % (Manual) Monocytes % (Manual) Basophils % (Manual) Seg Neutrophils # Seg Neutrophils # Man Lymphocytes # (Manual) Monocytes # (Manual) PT INR APTT Fibrinogen D-Dimer ABG pH POC ABG pCO2 POC ABG pO2 ABG pO2 ABG HCO3 ABG O2 Saturation ABG Base Excess ABG Hemoglobin ABG Oxyhemoglobin Oxyhemoglobin Sodium Potassium 3.4 L Chloride Carbon Dioxide BUN Creatinine Glucose 180 H POC Glucose 183 H 153 H Lactic Acid Calcium Phosphorus Magnesium AST ALT Alkaline Phosphatase C-Reactive Protein Total Protein Albumin Triglycerides Ur Specific [place] Urine Creatinine Crossmatch 07/06/21 07/06/21 07/07/21 17:30 21:44 00:22 WBC RBC Hgb Hct MCV MCH RDW Plt Count Lymph % (Auto) [place] % (Auto) Lymph # (Auto) [place] # (Auto) Seg Neutrophils % Seg Neuts % (Manual) Lymphocytes % (Manual) Monocytes % (Manual) Basophils % (Manual) Seg Neutrophils # Seg Neutrophils # Man Lymphocytes # (Manual) Monocytes # (Manual) PT INR APTT Fibrinogen D-Dimer ABG pH POC ABG pCO2 POC ABG pO2 ABG pO2 ABG HCO3 ABG O2 Saturation ABG Base Excess ABG Hemoglobin ABG Oxyhemoglobin Oxyhemoglobin Sodium Potassium Chloride Carbon Dioxide BUN Creatinine Glucose POC Glucose 166 H 155 H 188 H Lactic Acid Calcium Phosphorus Magnesium AST ALT Alkaline Phosphatase C-Reactive Protein Total Protein Albumin Triglycerides Ur Specific [place] Urine Creatinine Crossmatch 07/07/21 07/07/21 07/07/21 04:10 05:48 07:39 WBC RBC Hgb Hct MCV MCH RDW Plt Count Lymph % (Auto) [place] % (Auto) Lymph # (Auto) [place] # (Auto) Seg Neutrophils % Seg Neuts % (Manual) Lymphocytes % (Manual) Monocytes % (Manual) Basophils % (Manual) Seg Neutrophils # Seg Neutrophils # Man Lymphocytes # (Manual) Monocytes # (Manual) PT INR APTT Fibrinogen D-Dimer ABG pH POC ABG pCO2 POC ABG pO2 ABG pO2 ABG HCO3 ABG O2 Saturation ABG Base Excess ABG Hemoglobin ABG Oxyhemoglobin Oxyhemoglobin Sodium Potassium 3.1 L Chloride Carbon Dioxide BUN Creatinine Glucose 138 H POC Glucose 141 H 147 H Lactic Acid Calcium Phosphorus 2.40 L Magnesium AST ALT Alkaline Phosphatase C-Reactive Protein Total Protein Albumin Triglycerides Ur Specific [place] Urine Creatinine Crossmatch 07/07/21 07/07/21 07/07/21 11:17 16:06 23:58 WBC RBC Hgb Hct MCV MCH RDW Plt Count Lymph % (Auto) [place] % (Auto) Lymph # (Auto) [place] # (Auto) Seg Neutrophils % Seg Neuts % (Manual) Lymphocytes % (Manual) Monocytes % (Manual) Basophils % (Manual) Seg Neutrophils # Seg Neutrophils # Man Lymphocytes # (Manual) Monocytes # (Manual) PT INR APTT Fibrinogen D-Dimer ABG pH POC ABG pCO2 POC ABG pO2 ABG pO2 ABG HCO3 ABG O2 Saturation ABG Base Excess ABG Hemoglobin ABG Oxyhemoglobin Oxyhemoglobin Sodium Potassium Chloride Carbon Dioxide BUN Creatinine Glucose POC Glucose 161 H 173 H 198 H Lactic Acid Calcium Phosphorus Magnesium AST ALT Alkaline Phosphatase C-Reactive Protein Total Protein Albumin Triglycerides Ur Specific [place] Urine Creatinine Crossmatch 07/08/21 07/08/21 07/08/21 04:20 04:20 06:12 WBC RBC 3.16 L Hgb 8.3 L Hct 25.1 L MCV MCH 26 L RDW 21.0 H Plt Count Lymph % (Auto) [place] % (Auto) Lymph # (Auto) [place] # (Auto) Seg Neutrophils % Seg Neuts % (Manual) Lymphocytes % (Manual) Monocytes % (Manual) Basophils % (Manual) Seg Neutrophils # Seg Neutrophils # Man Lymphocytes # (Manual) Monocytes # (Manual) PT INR APTT Fibrinogen D-Dimer ABG pH POC ABG pCO2 POC ABG pO2 ABG pO2 ABG HCO3 ABG O2 Saturation ABG Base Excess ABG Hemoglobin ABG Oxyhemoglobin Oxyhemoglobin Sodium Potassium Chloride Carbon Dioxide BUN Creatinine Glucose 183 H POC Glucose 189 H Lactic Acid Calcium Phosphorus Magnesium AST ALT Alkaline Phosphatase C-Reactive Protein Total Protein Albumin Triglycerides Ur Specific [place] Urine Creatinine Crossmatch 07/08/21 07/08/21 07/08/21 11:33 18:04 21:42 WBC RBC Hgb Hct MCV MCH RDW Plt Count Lymph % (Auto) [place] % (Auto) Lymph # (Auto) [place] # (Auto) Seg Neutrophils % Seg Neuts % (Manual) Lymphocytes % (Manual) Monocytes % (Manual) Basophils % (Manual) Seg Neutrophils # Seg Neutrophils # Man Lymphocytes # (Manual) Monocytes # (Manual) PT INR APTT Fibrinogen D-Dimer ABG pH POC ABG pCO2 POC ABG pO2 ABG pO2 ABG HCO3 ABG O2 Saturation ABG Base Excess ABG Hemoglobin ABG Oxyhemoglobin Oxyhemoglobin Sodium Potassium Chloride Carbon Dioxide BUN Creatinine Glucose POC Glucose 161 H 128 H 160 H Lactic Acid Calcium Phosphorus Magnesium AST ALT Alkaline Phosphatase C-Reactive Protein Total Protein Albumin Triglycerides Ur Specific [place] Urine Creatinine Crossmatch 07/09/21 07/09/21 07/09/21 06:03 06:10 06:10 WBC RBC 2.96 L Hgb 7.8 L Hct 23.5 L MCV MCH 27 L RDW 20.9 H Plt Count Lymph % (Auto) [place] % (Auto) Lymph # (Auto) [place] # (Auto) Seg Neutrophils % Seg Neuts % (Manual) Lymphocytes % (Manual) Monocytes % (Manual) Basophils % (Manual) Seg Neutrophils # Seg Neutrophils # Man Lymphocytes # (Manual) Monocytes # (Manual) PT INR APTT Fibrinogen D-Dimer ABG pH POC ABG pCO2 POC ABG pO2 ABG pO2 ABG HCO3 ABG O2 Saturation ABG Base Excess ABG Hemoglobin ABG Oxyhemoglobin Oxyhemoglobin Sodium Potassium Chloride Carbon Dioxide BUN Creatinine Glucose 168 H POC Glucose 174 H Lactic Acid Calcium 8.2 L Phosphorus Magnesium AST ALT Alkaline Phosphatase C-Reactive Protein Total Protein Albumin Triglycerides Ur Specific [place] Urine Creatinine Crossmatch 07/09/21 07/09/21 07/09/21 11:45 18:45 21:33 WBC RBC Hgb Hct MCV MCH RDW Plt Count Lymph % (Auto) [place] % (Auto) Lymph # (Auto) [place] # (Auto) Seg Neutrophils % Seg Neuts % (Manual) Lymphocytes % (Manual) Monocytes % (Manual) Basophils % (Manual) Seg Neutrophils # Seg Neutrophils # Man Lymphocytes # (Manual) Monocytes # (Manual) PT INR APTT Fibrinogen D-Dimer ABG pH POC ABG pCO2 POC ABG pO2 ABG pO2 ABG HCO3 ABG O2 Saturation ABG Base Excess ABG Hemoglobin ABG Oxyhemoglobin Oxyhemoglobin Sodium Potassium Chloride Carbon Dioxide BUN Creatinine Glucose POC Glucose 148 H 187 H 156 H Lactic Acid Calcium Phosphorus Magnesium AST ALT Alkaline Phosphatase C-Reactive Protein Total Protein Albumin Triglycerides Ur Specific [place] Urine Creatinine Crossmatch 07/10/21 07/10/21 07/10/21 00:01 05:24 11:12 WBC RBC Hgb Hct MCV MCH RDW Plt Count Lymph % (Auto) [place] % (Auto) Lymph # (Auto) [place] # (Auto) Seg Neutrophils % Seg Neuts % (Manual) Lymphocytes % (Manual) Monocytes % (Manual) Basophils % (Manual) Seg Neutrophils # Seg Neutrophils # Man Lymphocytes # (Manual) Monocytes # (Manual) PT INR APTT Fibrinogen D-Dimer ABG pH POC ABG pCO2 POC ABG pO2 ABG pO2 ABG HCO3 ABG O2 Saturation ABG Base Excess ABG Hemoglobin ABG Oxyhemoglobin Oxyhemoglobin Sodium Potassium Chloride Carbon Dioxide BUN Creatinine Glucose POC Glucose 191 H 203 H 174 H Lactic Acid Calcium Phosphorus Magnesium AST ALT Alkaline Phosphatase C-Reactive Protein Total Protein Albumin Triglycerides Ur Specific [place] Urine Creatinine Crossmatch 07/10/21 07/10/21 07/10/21 15:56 20:58 23:54 WBC RBC Hgb Hct MCV MCH RDW Plt Count Lymph % (Auto) [place] % (Auto) Lymph # (Auto) [place] # (Auto) Seg Neutrophils % Seg Neuts % (Manual) Lymphocytes % (Manual) Monocytes % (Manual) Basophils % (Manual) Seg Neutrophils # Seg Neutrophils # Man Lymphocytes # (Manual) Monocytes # (Manual) PT INR APTT Fibrinogen D-Dimer ABG pH POC ABG pCO2 POC ABG pO2 ABG pO2 ABG HCO3 ABG O2 Saturation ABG Base Excess ABG Hemoglobin ABG Oxyhemoglobin Oxyhemoglobin Sodium Potassium Chloride Carbon Dioxide BUN Creatinine Glucose POC Glucose 182 H 165 H 196 H Lactic Acid Calcium Phosphorus Magnesium AST ALT Alkaline Phosphatase C-Reactive Protein Total Protein Albumin Triglycerides Ur Specific [place] Urine Creatinine Crossmatch 07/11/21 07/11/21 07/11/21 04:04 04:04 05:34 WBC RBC 3.50 L Hgb 8.7 L Hct 27.6 L MCV MCH 25 L RDW 20.6 H Plt Count Lymph % (Auto) [place] % (Auto) Lymph # (Auto) [place] # (Auto) Seg Neutrophils % Seg Neuts % (Manual) Lymphocytes % (Manual) Monocytes % (Manual) Basophils % (Manual) 2.0 H Seg Neutrophils # Seg Neutrophils # Man Lymphocytes # (Manual) 0.8 L Monocytes # (Manual) PT INR APTT Fibrinogen D-Dimer ABG pH POC ABG pCO2 POC ABG pO2 ABG pO2 ABG HCO3 ABG O2 Saturation ABG Base Excess ABG Hemoglobin ABG Oxyhemoglobin Oxyhemoglobin Sodium Potassium 3.3 L Chloride Carbon Dioxide BUN Creatinine Glucose 199 H POC Glucose 191 H Lactic Acid Calcium Phosphorus Magnesium AST ALT Alkaline Phosphatase C-Reactive Protein Total Protein Albumin Triglycerides Ur Specific [place] Urine Creatinine Crossmatch
--- NOTE | 2021-07-11 12:40 | Progress Note ---
Assessment and Plan Cultures: 06/12/2021 blood cultures: no growth A/P: 76-year-old female with diabetes, hypertension, gout was admitted to the hospital on 06/11/2021 with swelling of the submandibular region, tongue and difficulty breathing, labs also revealed severe coagulopathy due to Coumadin. 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 Shock resolved. s/p tracheostomy and PEG tube placement 06/19/2021. #Acute respiratory failure: s/p trach #Right-sided pneumothorax: s/p chest tube. #Diabetes mellitus, uncontrolled #Coagulopathy: Secondary to Coumadin. #Acute blood loss anemia Recs: -Completed Zosyn -Pending placement Sinai Small MD [facility] ([facility]) O: [phone] F: [phone] Subjective Date of service: 07/11/21 Interval history: Afebrile, normal whtie count. Imaging personally reviewed: CXR: increased R pleural effusion Objective - Exam Narrative Exam: Physical Exam: Constitutional: Awake, on T-piece Head, Ears, Nose: Normocephalic, atraumatic. External ears, nose normal Eyes: Conjunctivae/corneas clear. No icterus. No ptosis. Oral: trach Cardiovascular: S1, S2 + Respiratory: AE reduced, right-sided chest tube. GI: Soft, bowel sounds +, PEG + Musculoskeletal: No pedal edema, no cyanosis. Skin: No rash or abscess Hem/Lymphatic: No palpable cervical or supraclavicular nodes. No lymphangitis Psych: no agitation Neurological: on t-piece examined. - Constitutional Vitals: Vital Signs Temp Pulse Resp BP Pulse Ox 100.2 F H 128 H 21 96/75 98 07/11/21 12:05 07/11/21 11:01 07/11/21 11:01 07/11/21 11:01 07/11/21 11:01 Temperature -Last 24 Hours Temperature 100.2 F Temperature 99.3 F Temperature 98.4 F Temperature 98.9 F Temperature 98.7 F Temperature 98.6 F Temperature 98.8 F - Labs CBC & Chem 7: 07/11/21 04:04 07/11/21 04:04 Labs: Abnormal lab results 07/10/21 07/10/21 07/10/21 Range/Units 15:56 20:58 23:54 RBC (3.65-5.03) M/mm3 Hgb (10.1-14.3) gm/dl Hct (30.3-42.9) % MCH (28-32) pg RDW (13.2-15.2) % Basophils % (Manual) (0.0-1.8) % Lymphocytes # (Manual) (1.2-5.4) K/mm3 Potassium (3.6-5.0) mmol/L Glucose (65-100) mg/dL POC Glucose 182 H 165 H 196 H (70-105) mg/dL 07/11/21 07/11/21 07/11/21 Range/Units 04:04 04:04 05:34 RBC 3.50 L (3.65-5.03) M/mm3 Hgb 8.7 L (10.1-14.3) gm/dl Hct 27.6 L (30.3-42.9) % MCH 25 L (28-32) pg RDW 20.6 H (13.2-15.2) % Basophils % (Manual) 2.0 H (0.0-1.8) % Lymphocytes # (Manual) 0.8 L (1.2-5.4) K/mm3 Potassium 3.3 L (3.6-5.0) mmol/L Glucose 199 H (65-100) mg/dL POC Glucose 191 H (70-105) mg/dL 07/11/21 Range/Units 11:49 RBC (3.65-5.03) M/mm3 Hgb (10.1-14.3) gm/dl Hct (30.3-42.9) % MCH (28-32) pg RDW (13.2-15.2) % Basophils % (Manual) (0.0-1.8) % Lymphocytes # (Manual) (1.2-5.4) K/mm3 Potassium (3.6-5.0) mmol/L Glucose (65-100) mg/dL POC Glucose 195 H (70-105) mg/dL
[2021-07-11] MEDS: HYDROmorphone 1 MG/1 ML INJ IV PRN (16:51)
[2021-07-11] MEDS: ENOXAPARIN 40 MG/0.4 ML INJ SUB-Q SCH (21:36)
[2021-07-11] MEDS: INSULIN GLARGINE 100 UNITS/ML SUB-Q SCH (21:36)
[2021-07-11] MEDS: traZODone 50 MG TAB PO SCH (21:36)
[2021-07-11] MEDS: MELATONIN 5 MG TAB PO SCH (21:36)
[2021-07-12] MEDS: INSULIN LISPRO 100 UNIT/ML SUB-Q SCH ×3 (00:15→13:51)
[2021-07-12] MEDS: HYDROmorphone 1 MG/1 ML INJ IV PRN ×3 (01:25→21:58)
[2021-07-12] MEDS: hydrALAZINE 100 MG TAB FEEDTUBE SCH ×3 (06:09→21:34)
[2021-07-12] MEDS: FUROSEMIDE 40 MG/4 ML INJ IV SCH (06:09)
[2021-07-12] MEDS: GABAPENTIN 100 MG CAP PO SCH ×3 (08:39→21:35)
[2021-07-12] MEDS: amLODIPine 5 MG TAB PO SCH (09:34)
[2021-07-12] MEDS: FAMOTIDINE 20 MG TAB FEEDTUBE SCH ×2 (09:35→21:35)
--- NOTE | 2021-07-12 10:44 | Progress Note ---
Assessment and Plan Cultures: 06/12/2021 blood cultures: no growth A/P: 76-year-old female with diabetes, hypertension, gout was admitted to the hospital on 06/11/2021 with swelling of the submandibular region, tongue and difficulty breathing, labs also revealed severe coagulopathy due to Coumadin. 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 Shock resolved. s/p tracheostomy and PEG tube placement 06/19/2021. #Acute respiratory failure: s/p trach #Right-sided pneumothorax: s/p chest tube. #Diabetes mellitus, uncontrolled #Coagulopathy: Secondary to Coumadin. #Acute blood loss anemia Recs: -Completed Zosyn -Pending placement Infectious disease will sign off. Please call questions. Sinai Small MD [facility] ([facility]) O: [phone] F: [phone] Subjective Date of service: 07/12/21 Interval history: Afebrile, no acute change. Still pending placement. Objective - Exam Narrative Exam: Physical Exam: Constitutional: Awake, on T-piece Head, Ears, Nose: Normocephalic, atraumatic. External ears, nose normal Eyes: Conjunctivae/corneas clear. No icterus. No ptosis. Oral: trach Cardiovascular: S1, S2 + Respiratory: AE reduced, right-sided chest tube. GI: Soft, bowel sounds +, PEG + Musculoskeletal: No pedal edema, no cyanosis. Skin: No rash or abscess Hem/Lymphatic: No palpable cervical or supraclavicular nodes. No lymphangitis Psych: no agitation Neurological: on t-piece examined. - Constitutional Vitals: Vital Signs Temp Pulse Resp BP Pulse Ox 98.8 F 96 H 17 110/80 97 07/12/21 08:00 07/12/21 10:00 07/12/21 10:00 07/12/21 10:00 07/12/21 10:00 Temperature -Last 24 Hours Temperature 98.8 F Temperature 98.6 F Temperature 98.7 F Temperature 99.2 F Temperature 98.9 F Temperature 100.2 F - Labs CBC & Chem 7: 07/11/21 04:04 07/11/21 04:04 Labs: Abnormal lab results 07/11/21 07/11/21 07/11/21 Range/Units 11:49 15:57 21:33 POC Glucose 195 H 207 H 192 H (70-105) mg/dL 07/12/21 07/12/21 Range/Units 00:04 05:54 POC Glucose 189 H 220 H (70-105) mg/dL
--- NOTE | 2021-07-12 12:11 | Progress Note ---
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 07/12/21: Stable pulm [facility] for transport. Awaiting [facility] arrival for speech to work with patient. Continue PT/OT. Needs placement. 07/11/21: clinically stable for transport when bed is available at facility. Follow up speech recs. Reviewed neurology note, they state MRI cancelled. Appears this was done by surgery so they can discuss with them about why. Will continue to follow. 07/10/21: Continue current care. Trach changed out. Speech following. Awaiting placement. 07/09/21: Transfer to IMCU. PT/OT. Speech to see again now with smaller caliber trach. Placement. 07/08/21: Continue ICU. Once trach downsized may consider transition to step down if ICU bed is needed. Hopeful placement soon. PT/OT. 07/05/21: Continue ICU/IMCU status. Patient is stable for speech as well as PT/OT. Please reconsult them. [facility] has been denied for LTACH so will attempt to get patient into senior care facility. Will speak with surgery about possibly downsizing trach to 8. Speech has no equipment to fit 10. Do not feel comfortable doing it myself or asking RT to change out to smaller trach. 07/04/21: Will keep in ICU/IMCU for now. Treat pain in back with [place] and discontinue Tylenol. Follow up with CM on placement. 07/03/21: Continue current level of care. CM working on placement. 07/02/21: ABG now. Patient did have low grade temp earlier today and still has a white count despite being off steroids. It is trending down. Reviewed ID note and they did mention of persistent consider ct of neck. May need to do this. If done, please scan head as well. Will continue to follow. Spoke with RT about obtaining ABG. 07/01/21: Continue T-piece. Follow up speech recs. Follow up electrolytes. PT/OT. Stable for transfer when bed available 06/30/21: Aggressive replacement of electrolytes. Will repeat chemistry tonight around 8. please call for orders as we would like to keep her K at 4 and Mag at 2. Chemistry in the am. Stable for transfer to telemetry floor. 06/29/21: Speech did see but patient had decreased voice quality and increased wob so aborted. Will ask them to assess again on Thursday. Chest tube out and ordered follow up CXR. Stable for transfer but ok with continuing monitoring in ICU. If bed needed could go to step down. 06/28/21: monitor drainage in ICU for 24 more hours. Can likely come out tomorrow. Continue in ICU for now. Once chest tube out, no objection to transfer. 06/27/21: Will place chest tube to water seal. Instructed staff if any change in respiratory status, place back on suction and obtain CXR. Otherwise will leave off. Continue T-piece as tolerated. Rehab/chcf/LTACH appropriate. STable for transfer if and when bed becomes available. 06/26/21: T-piece today. If off the vent, agree with surgery and removal of chest tube as subq emphysema is improving as well. PT has seen suggested LTACH, however if we are able to wean she may need chcf/rehab. Prognosis continues to improve. 06/25/21: Continue PSV as tolerated. Hopeful T-piece in the next 24-48 hours. Will drop steroids down further on . Can switch to daily and even change to oral. PT/OT consult, and follow up recs. May need LTACH vs rehab vs both. Continue to follow. 06/24/21: Daily PSV trials. Maybe ready for T-piece sson. Continue to wean steroids to off. IMS changed to 40q12 which is fine. Continue chest tube until off vent. Still on list for [facility] but will discuss with CM about checking into LTACH as patient will need rehab. PT/OT consult. 06/21/21: Continue current level of sedation. Chest tube does not have air leak but there is clear evidence of a PTX on right. Stripped tube at bedside and will repeat CXR in the morning. Hold on weaning sedation for now and hold on PSV trials. May need second chest tube vs vats if PTX worsens or does not resolve. Patient still on list for [facility], hopeful they will have a bed soon. Drop steroids to 40q8 starting Thursday. Monitor renal function, likely will improve. Needs more free water. Prognosis still remains guarded. 06/20/21: Restart some sedation. At least pain and maybe diprovan. Would like to wake patient up at some point and attempt some PSV trials. Labs are off this am. Large bump in white count but no fever, also no diff drawn. Could be error vs steroid related but this is in just 24 hours. Will repeat tomorrow. If spikes a temp neves culture as well. Small bump in Cr but still in normal range. Will watch. Now that peg in place, tube feeds and free water flushes. Still on list for [facility]. Patient has been steroids greater than 7 days so will have to w murtaza. Can drop to 60q8 starting tomorrow. Prognosis still remains guarded. 06/19/21: surgery to attempt trach and peg today. Still will ask to keep on transfer list for [facility] as her other issues still need to be addressed. If able to place peg, can stop clinimix, give free water and start tube feeds. Prognosis remains guarded. pH better with drop in tidal volume. 06/18/21: [facility] has agreed to accept but no ICU beds available at this time. Spoke with Dr. Vasquez yesterday and Dr. Patricia spoke with ENT there. Spoke with RT this am and patient did have a leak when cuff let down and her tidal volumes dropped to below 100. Patient remains on abx and steriods. Will consider lightening sedation tomorrow and seeing how patient does if cuff leak persists. Dropped tidal volumes to 450. Continue PPN for now. 06/17/21: spoke with surgery and they feel transfer is reasonable. I have reached out to [facility] and IMS has spoken with someone from [facility]. Await to hear back from them. Continue supportive measures and adequate sedation for pain control. No PSV trials as of yet. Blood sugar control, increase lantus. Most likely secondary to steroids. Continue abx therapy. Guarded prognosis. 06/16/21: Renal function improved with fluids. IMS to give more fluids (LR) today which I agree with. FeNa is =0.7. Should be fluid responsive. Continue clinimix. Needs long acting insulin. Agree with lantus. Asked nursing to increase sedation now that we know that patient's mental status is stable. Picc today. Air leak test vs Neck CT on tomorrow. 06/15/21: Hopeful with worsening renal function ( likely from code on yesterday) that sedatives are just lingering from that. Still making good urine but output has fallen off. Will send urine sodium and urine cr to check F[place]. Most likely this is prerenal. ordered renal ultrasound as well. Continue abx and steroids. Will start clinimix today. This should help with the free water piece. Will give another liter bolus of LR right now. Keep sedation off for now. Guarded prognosis. 06/14/21: Will discuss with surgery future plans. They have ordered steroids to help with inflammation and abx continue. All others appears stable and no acute evidence of bleeding at this time. Follow up surgery recs if any new ones. Guarded prognosis. 06/13/21: Patient to back to OR today. BLood transfusion. Will send DIC panel and may need to given cryo if over 6 units of PRBC's given. Patient will likely need trach and peg as we need to address nutrition. Chest tube placed, large bore now. Patient now with right sided effusion. Hemothorax???. Will continue to monitor output. Needs picc line as femoral should come out soon. Continue pressors. Continue sedation for pain control and comfort. Guarded prognosis. Surgery comfortable with neck and current situation so they have not request transfer. 1. Placed right femoral central line. pressors can run through this. 2. Repeat chemistry stat given bicarb of 8 and blood sugar of greater than 600. Ordering FSBS now. Earlier bicarb was 25. If accurate will need bicarb drip and vasopressin but not sure as pH on blood gas was normal done around the same time. 3. Coagulopathy is improving. INR down to 4.55 and PTT and pT improving. Will continue to give FFP. Ordered more vitamin K. H/H is stable but patient is oozing from neck and mouth. 4. Vasopressor for blood pressure. Need to keep map 65 and greater 5. Lujan is needed for accurate I/O 6. Surgery called by IMS about current CT situation. They state they will reassess in the am. I have reviewed the images myself. If I can position the patient safely without compromising the airway after adequate sedation, may consider placing chest tube now as INR is better and FFP is hanging. Patient is morbidly obese so shits could move the ET tube so if not safe, will wait until surgery comes in the morning. 7. Would not attempt to pass OG or NG tube given current situation in neck 8. Will discuss with surgery tomorrow but I feel this patient should be transferred to a tertiary care facility with ENT as we do not have that service here. CCT 31 minutes. Subjective Date of service: 07/12/21 Interval history: no acute events. Objective Vital Signs - 12hr 07/12/21 07/12/21 07/12/21 01:01 02:00 03:00 Temperature Pulse Rate 106 H 97 H 104 H Pulse Rate [ From Monitor] Respiratory 18 18 15 Rate Blood Pressure 130/67 140/72 140/72 O2 Sat by Pulse 100 94 88 Oximetry O2 Sat by Pulse Oximetry [ Assessment] 07/12/21 07/12/21 07/12/21 04:00 05:00 06:00 Temperature 98.6 F Pulse Rate 99 H 92 H 100 H Pulse Rate [ 98 H From Monitor] Respiratory 18 18 21 Rate Blood Pressure 113/58 121/67 137/77 O2 Sat by Pulse 96 96 97 Oximetry O2 Sat by Pulse Oximetry [ Assessment] 07/12/21 07/12/21 07/12/21 07:00 08:00 09:00 Temperature 98.8 F Pulse Rate 100 H 114 H 90 Pulse Rate [ 92 H From Monitor] Respiratory 19 16 22 Rate Blood Pressure 130/68 121/77 118/79 O2 Sat by Pulse 99 99 97 Oximetry O2 Sat by Pulse Oximetry [ Assessment] 07/12/21 07/12/21 07/12/21 09:34 10:00 11:08 Temperature Pulse Rate 96 H 96 H Pulse Rate [ From Monitor] Respiratory 17 Rate Blood Pressure 118/79 110/80 O2 Sat by Pulse 97 Oximetry O2 Sat by Pulse 98 Oximetry [ Assessment] Constitutional: alert, other (on vent trach in place) Eyes: non-icteric ENT: oropharynx moist Neck: other (trach in place) Ascultation: Bilateral: clear Percussion: Bilateral: not dull Cardiovascular: regular rate and rhythm Gastrointestinal: normoactive bowel sounds Integumentary: normal Extremities: no edema, other (subq emphysema) Neurologic: normal mental status CBC and BMP: 07/11/21 04:04 07/11/21 04:04 ABG, PT/INR, D-dimer: ABG ABG pH 7.448 pH Units (7.350-7.450) 07/04/21 01:44 POC ABG pCO2 25.6 mmHg (32.0-48.0) L 06/13/21 04:31 ABG pCO2 39.5 mm Hg 07/04/21 01:44 POC ABG pO2 138.8 mmHg (83-108) H 06/13/21 04:31 ABG pO2 107.7 mm Hg (80.0-90.0) H 07/04/21 01:44 POC ABG HCO3 21.4 06/13/21 04:31 ABG O2 Saturation 98.0 % (95.0-99.0) 07/04/21 01:44 PT/INR, D-dimer PT 18.3 Sec. (12.2-14.9) H 06/20/21 04:33 INR 1.37 (0.87-1.13) H 06/20/21 04:33 D-Dimer 1244.63 ng/mlDDU (0-234) H 06/13/21 Unknown Abnormal lab findings: Abnormal Labs 06/11/21 06/11/21 06/11/21 15:23 15:23 19:20 WBC 12.0 H RBC Hgb Hct MCV 72 L MCH 21 L RDW 17.5 H Plt Count Lymph % (Auto) 12.9 L [place] % (Auto) 8.6 H Lymph # (Auto) [place] # (Auto) 1.0 H Seg Neutrophils % 77.4 H Seg Neuts % (Manual) Lymphocytes % (Manual) Monocytes % (Manual) Basophils % (Manual) Seg Neutrophils # 9.3 H Seg Neutrophils # Man Lymphocytes # (Manual) Monocytes # (Manual) PT INR APTT Fibrinogen D-Dimer ABG pH POC ABG pCO2 POC ABG pO2 ABG pO2 ABG HCO3 ABG O2 Saturation ABG Base Excess ABG Hemoglobin ABG Oxyhemoglobin Oxyhemoglobin Sodium Potassium Chloride Carbon Dioxide BUN Creatinine Glucose 144 H POC Glucose Lactic Acid Calcium Phosphorus Magnesium AST ALT Alkaline Phosphatase C-Reactive Protein Total Protein Albumin Triglycerides Ur Specific [place] Urine Creatinine Crossmatch See Detail 06/11/21 06/11/21 06/11/21 19:29 19:29 23:21 WBC 15.8 H RBC Hgb 9.4 L Hct MCV 72 L MCH 22 L RDW 17.4 H Plt Count Lymph % (Auto) 9.2 L [place] % (Auto) Lymph # (Auto) [place] # (Auto) Seg Neutrophils % 89.0 H Seg Neuts % (Manual) Lymphocytes % (Manual) Monocytes % (Manual) Basophils % (Manual) Seg Neutrophils # 14.0 H Seg Neutrophils # Man Lymphocytes # (Manual) Monocytes # (Manual) PT 72.9 H INR 8.18 H* APTT 71.7 H* Fibrinogen D-Dimer ABG pH POC ABG pCO2 POC ABG pO2 ABG pO2 ABG HCO3 ABG O2 Saturation ABG Base Excess ABG Hemoglobin ABG Oxyhemoglobin Oxyhemoglobin Sodium 149 H D Potassium Chloride 124.3 H Carbon Dioxide 8 L* D BUN Creatinine 0.3 L Glucose 628 H* POC Glucose Lactic Acid Calcium 2.4 L* D Phosphorus Magnesium AST ALT < 5 L Alkaline Phosphatase 19 L C-Reactive Protein Total Protein 1.6 L D Albumin 0.8 L Triglycerides Ur Specific [place] Urine Creatinine Crossmatch 06/11/21 06/11/21 06/11/21 23:21 23:22 23:42 WBC RBC Hgb Hct MCV MCH 27 L RDW 22.2 H Plt Count 131 L Lymph % (Auto) [place] % (Auto) Lymph # (Auto) [place] # (Auto) Seg Neutrophils % Seg Neuts % (Manual) Lymphocytes % (Manual) Monocytes % (Manual) Basophils % (Manual) Seg Neutrophils # Seg Neutrophils # Man Lymphocytes # (Manual) Monocytes # (Manual) PT 46.3 H INR 4.55 H APTT 54.8 H Fibrinogen D-Dimer ABG pH POC ABG pCO2 POC ABG pO2 325.9 H ABG pO2 ABG HCO3 ABG O2 Saturation ABG Base Excess ABG Hemoglobin 8.0 L ABG Oxyhemoglobin 99.0 H Oxyhemoglobin Sodium Potassium Chloride Carbon Dioxide BUN Creatinine Glucose POC Glucose Lactic Acid Calcium Phosphorus Magnesium AST ALT Alkaline Phosphatase C-Reactive Protein Total Protein Albumin Triglycerides Ur Specific [place] Urine Creatinine Crossmatch 06/12/21 06/12/21 06/12/21 01:45 01:45 01:45 WBC 21.6 H RBC 3.04 L Hgb 6.7 L D Hct 22.4 L D MCV 74 L MCH 22 L RDW 18.9 H Plt Count Lymph % (Auto) [place] % (Auto) Lymph # (Auto) [place] # (Auto) Seg Neutrophils % Seg Neuts % (Manual) 76.0 H Lymphocytes % (Manual) 2.0 L Monocytes % (Manual) 8.0 H Basophils % (Manual) Seg Neutrophils # Seg Neutrophils # Man 16.4 H Lymphocytes # (Manual) 0.4 L Monocytes # (Manual) 1.7 H PT 25.4 H INR 2.10 H APTT Fibrinogen D-Dimer ABG pH POC ABG pCO2 POC ABG pO2 ABG pO2 ABG HCO3 ABG O2 Saturation ABG Base Excess ABG Hemoglobin ABG Oxyhemoglobin Oxyhemoglobin Sodium Potassium 5.6 H D Chloride Carbon Dioxide 20 L D BUN Creatinine Glucose 368 H POC Glucose Lactic Acid Calcium 7.1 L D Phosphorus Magnesium AST ALT Alkaline Phosphatase C-Reactive Protein Total Protein 5.3 L D Albumin 3.1 L Triglycerides Ur Specific [place] Urine Creatinine Crossmatch 06/12/21 06/12/21 06/12/21 02:05 04:41 11:05 WBC 14.6 H RBC 3.52 L Hgb 8.5 L Hct 27.7 L MCV MCH 24 L RDW 20.9 H Plt Count Lymph % (Auto) [place] % (Auto) Lymph # (Auto) [place] # (Auto) Seg Neutrophils % Seg Neuts % (Manual) Lymphocytes % (Manual) Monocytes % (Manual) Basophils % (Manual) Seg Neutrophils # Seg Neutrophils # Man Lymphocytes # (Manual) Monocytes # (Manual) PT INR APTT Fibrinogen D-Dimer ABG pH POC ABG pCO2 POC ABG pO2 224.6 H ABG pO2 ABG HCO3 ABG O2 Saturation ABG Base Excess ABG Hemoglobin 7.3 L ABG Oxyhemoglobin 98.7 H Oxyhemoglobin Sodium Potassium Chloride Carbon Dioxide BUN Creatinine Glucose POC Glucose 308 H Lactic Acid Calcium Phosphorus Magnesium AST ALT Alkaline Phosphatase C-Reactive Protein Total Protein Albumin Triglycerides Ur Specific [place] Urine Creatinine Crossmatch 06/12/21 06/12/21 06/12/21 11:05 11:05 12:18 WBC RBC Hgb Hct MCV MCH RDW Plt Count Lymph % (Auto) [place] % (Auto) Lymph # (Auto) [place] # (Auto) Seg Neutrophils % Seg Neuts % (Manual) Lymphocytes % (Manual) Monocytes % (Manual) Basophils % (Manual) Seg Neutrophils # Seg Neutrophils # Man Lymphocytes # (Manual) Monocytes # (Manual) PT 16.8 H INR 1.23 H APTT Fibrinogen D-Dimer ABG pH POC ABG pCO2 POC ABG pO2 ABG pO2 ABG HCO3 ABG O2 Saturation ABG Base Excess ABG Hemoglobin ABG Oxyhemoglobin Oxyhemoglobin Sodium Potassium Chloride Carbon Dioxide BUN 24 H Creatinine Glucose 324 H POC Glucose 281 H Lactic Acid Calcium 7.5 L Phosphorus Magnesium AST 70 H ALT 57 H Alkaline Phosphatase C-Reactive Protein Total Protein 6.0 L Albumin 3.6 L Triglycerides Ur Specific [place] Urine Creatinine Crossmatch 06/12/21 06/12/21 06/12/21 17:00 17:00 17:00 WBC RBC Hgb 7.5 L Hct 24.0 L MCV MCH RDW Plt Count Lymph % (Auto) [place] % (Auto) Lymph # (Auto) [place] # (Auto) Seg Neutrophils % Seg Neuts % (Manual) Lymphocytes % (Manual) Monocytes % (Manual) Basophils % (Manual) Seg Neutrophils # Seg Neutrophils # Man Lymphocytes # (Manual) Monocytes # (Manual) PT 16.0 H INR 1.16 H APTT Fibrinogen D-Dimer ABG pH POC ABG pCO2 POC ABG pO2 ABG pO2 ABG HCO3 ABG O2 Saturation ABG Base Excess ABG Hemoglobin ABG Oxyhemoglobin Oxyhemoglobin Sodium Potassium Chloride Carbon Dioxide BUN Creatinine Glucose POC Glucose Lactic Acid Calcium Phosphorus Magnesium AST ALT Alkaline Phosphatase C-Reactive Protein Total Protein Albumin Triglycerides Ur Specific [place] 1.035 H Urine Creatinine Crossmatch 06/12/21 06/12/21 06/12/21 18:06 23:00 23:05 WBC RBC Hgb 7.6 L Hct 23.5 L MCV MCH RDW Plt Count Lymph % (Auto) [place] % (Auto) Lymph # (Auto) [place] # (Auto) Seg Neutrophils % Seg Neuts % (Manual) Lymphocytes % (Manual) Monocytes % (Manual) Basophils % (Manual) Seg Neutrophils # Seg Neutrophils # Man Lymphocytes # (Manual) Monocytes # (Manual) PT INR APTT Fibrinogen D-Dimer ABG pH POC ABG pCO2 POC ABG pO2 ABG pO2 ABG HCO3 ABG O2 Saturation ABG Base Excess ABG Hemoglobin ABG Oxyhemoglobin Oxyhemoglobin Sodium Potassium Chloride Carbon Dioxide BUN Creatinine Glucose POC Glucose 257 H 300 H Lactic Acid Calcium Phosphorus Magnesium AST ALT Alkaline Phosphatase C-Reactive Protein Total Protein Albumin Triglycerides Ur Specific [place] Urine Creatinine Crossmatch 06/13/21 06/13/21 06/13/21 04:31 05:19 07:30 WBC RBC Hgb 6.8 L Hct 21.7 L MCV MCH RDW Plt Count Lymph % (Auto) [place] % (Auto) Lymph # (Auto) [place] # (Auto) Seg Neutrophils % Seg Neuts % (Manual) Lymphocytes % (Manual) Monocytes % (Manual) Basophils % (Manual) Seg Neutrophils # Seg Neutrophils # Man Lymphocytes # (Manual) Monocytes # (Manual) PT INR APTT Fibrinogen D-Dimer ABG pH 7.541 H POC ABG pCO2 25.6 L POC ABG pO2 138.8 H ABG pO2 ABG HCO3 ABG O2 Saturation ABG Base Excess ABG Hemoglobin 7.3 L ABG Oxyhemoglobin 98.1 H Oxyhemoglobin Sodium Potassium Chloride Carbon Dioxide BUN Creatinine Glucose POC Glucose 286 H Lactic Acid Calcium Phosphorus Magnesium AST ALT Alkaline Phosphatase C-Reactive Protein Total Protein Albumin Triglycerides Ur Specific [place] Urine Creatinine Crossmatch 06/13/21 06/13/21 06/13/21 07:30 12:04 14:50 WBC RBC Hgb Hct MCV MCH RDW Plt Count Lymph % (Auto) [place] % (Auto) Lymph # (Auto) [place] # (Auto) Seg Neutrophils % Seg Neuts % (Manual) Lymphocytes % (Manual) Monocytes % (Manual) Basophils % (Manual) Seg Neutrophils # Seg Neutrophils # Man Lymphocytes # (Manual) Monocytes # (Manual) PT INR APTT Fibrinogen D-Dimer ABG pH 7.039 L* 7.182 L* POC ABG pCO2 POC ABG pO2 ABG pO2 63.1 L ABG HCO3 17.4 L ABG O2 Saturation 73.4 L ABG Base Excess -12.6 L -7.1 L ABG Hemoglobin 7.7 L 6.9 L ABG Oxyhemoglobin Oxyhemoglobin 71.8 L 93.5 L Sodium Potassium Chloride 108.9 H Carbon Dioxide BUN 28 H Creatinine Glucose 293 H POC Glucose Lactic Acid Calcium 7.2 L Phosphorus Magnesium AST 106 H ALT 92 H Alkaline Phosphatase C-Reactive Protein Total Protein 5.6 L Albumin 3.3 L Triglycerides Ur Specific [place] Urine Creatinine Crossmatch 06/13/21 06/13/21 06/13/21 14:54 15:45 17:34 WBC RBC Hgb Hct MCV MCH RDW Plt Count Lymph % (Auto) [place] % (Auto) Lymph # (Auto) [place] # (Auto) Seg Neutrophils % Seg Neuts % (Manual) Lymphocytes % (Manual) Monocytes % (Manual) Basophils % (Manual) Seg Neutrophils # Seg Neutrophils # Man Lymphocytes # (Manual) Monocytes # (Manual) PT INR APTT Fibrinogen D-Dimer ABG pH POC ABG pCO2 POC ABG pO2 ABG pO2 178.4 H ABG HCO3 ABG O2 Saturation 99.1 H ABG Base Excess ABG Hemoglobin 8.0 L ABG Oxyhemoglobin Oxyhemoglobin Sodium Potassium Chloride 107.3 H Carbon Dioxide 19 L BUN 33 H Creatinine 1.5 H Glucose 379 H POC Glucose Lactic Acid 5.30 H* Calcium 6.8 L Phosphorus Magnesium AST ALT Alkaline Phosphatase C-Reactive Protein Total Protein Albumin Triglycerides Ur Specific [place] Urine Creatinine Crossmatch 06/13/21 06/13/21 06/13/21 17:40 23:29 Unknown WBC 22.5 H RBC 3.16 L Hgb 8.0 L Hct 26.0 L MCV MCH 26 L RDW 21.4 H Plt Count Lymph % (Auto) [place] % (Auto) Lymph # (Auto) [place] # (Auto) Seg Neutrophils % Seg Neuts % (Manual) 88.0 H Lymphocytes % (Manual) 4.0 L Monocytes % (Manual) Basophils % (Manual) Seg Neutrophils # Seg Neutrophils # Man 19.8 H Lymphocytes # (Manual) 0.9 L Monocytes # (Manual) 1.4 H PT INR APTT Fibrinogen D-Dimer ABG pH POC ABG pCO2 POC ABG pO2 ABG pO2 ABG HCO3 ABG O2 Saturation ABG Base Excess ABG Hemoglobin ABG Oxyhemoglobin Oxyhemoglobin Sodium Potassium Chloride Carbon Dioxide BUN Creatinine Glucose POC Glucose 294 H 288 H Lactic Acid Calcium Phosphorus Magnesium AST ALT Alkaline Phosphatase C-Reactive Protein Total Protein Albumin Triglycerides Ur Specific [place] Urine Creatinine Crossmatch 06/13/21 06/14/21 06/14/21 Unknown 05:39 06:15 WBC RBC 2.93 L Hgb 7.2 L Hct 23.2 L MCV MCH 25 L RDW 21.2 H Plt Count Lymph % (Auto) [place] % (Auto) Lymph # (Auto) [place] # (Auto) Seg Neutrophils % Seg Neuts % (Manual) Lymphocytes % (Manual) Monocytes % (Manual) Basophils % (Manual) Seg Neutrophils # Seg Neutrophils # Man Lymphocytes # (Manual) Monocytes # (Manual) PT 17.6 H INR 1.31 H APTT Fibrinogen 546 H D-Dimer 1244.63 H ABG pH POC ABG pCO2 POC ABG pO2 ABG pO2 ABG HCO3 ABG O2 Saturation ABG Base Excess ABG Hemoglobin ABG Oxyhemoglobin Oxyhemoglobin Sodium Potassium Chloride Carbon Dioxide BUN Creatinine Glucose POC Glucose 246 H Lactic Acid Calcium Phosphorus Magnesium AST ALT Alkaline Phosphatase C-Reactive Protein Total Protein Albumin Triglycerides Ur Specific [place] Urine Creatinine Crossmatch 06/14/21 06/14/21 06/14/21 06:15 06:15 09:13 WBC RBC Hgb Hct MCV MCH RDW Plt Count Lymph % (Auto) [place] % (Auto) Lymph # (Auto) [place] # (Auto) Seg Neutrophils % Seg Neuts % (Manual) Lymphocytes % (Manual) Monocytes % (Manual) Basophils % (Manual) Seg Neutrophils # Seg Neutrophils # Man Lymphocytes # (Manual) Monocytes # (Manual) PT INR APTT Fibrinogen D-Dimer ABG pH POC ABG pCO2 POC ABG pO2 ABG pO2 183.0 H ABG HCO3 ABG O2 Saturation 99.2 H ABG Base Excess ABG Hemoglobin 6.6 L ABG Oxyhemoglobin Oxyhemoglobin Sodium 147 H Potassium Chloride 112.5 H Carbon Dioxide 21 L BUN 36 H Creatinine 1.4 H Glucose 281 H POC Glucose Lactic Acid Calcium 6.9 L Phosphorus Magnesium AST ALT Alkaline Phosphatase C-Reactive Protein Total Protein Albumin Triglycerides 189 H Ur Specific [place] Urine Creatinine Crossmatch 06/14/21 06/14/21 06/14/21 10:45 12:16 13:30 WBC RBC Hgb 7.1 L Hct 22.3 L MCV MCH RDW Plt Count Lymph % (Auto) [place] % (Auto) Lymph # (Auto) [place] # (Auto) Seg Neutrophils % Seg Neuts % (Manual) Lymphocytes % (Manual) Monocytes % (Manual) Basophils % (Manual) Seg Neutrophils # Seg Neutrophils # Man Lymphocytes # (Manual) Monocytes # (Manual) PT INR APTT Fibrinogen D-Dimer ABG pH 7.205 L POC ABG pCO2 POC ABG pO2 ABG pO2 261.3 H ABG HCO3 ABG O2 Saturation 99.4 H ABG Base Excess -7.2 L ABG Hemoglobin 7.6 L ABG Oxyhemoglobin Oxyhemoglobin Sodium Potassium Chloride Carbon Dioxide BUN Creatinine Glucose POC Glucose 174 H Lactic Acid Calcium Phosphorus Magnesium AST ALT Alkaline Phosphatase C-Reactive Protein Total Protein Albumin Triglycerides Ur Specific [place] Urine Creatinine Crossmatch 06/14/21 06/14/21 06/15/21 17:40 18:43 00:06 WBC RBC Hgb Hct MCV MCH RDW Plt Count Lymph % (Auto) [place] % (Auto) Lymph # (Auto) [place] # (Auto) Seg Neutrophils % Seg Neuts % (Manual) Lymphocytes % (Manual) Monocytes % (Manual) Basophils % (Manual) Seg Neutrophils # Seg Neutrophils # Man Lymphocytes # (Manual) Monocytes # (Manual) PT INR APTT Fibrinogen D-Dimer ABG pH 7.292 L POC ABG pCO2 POC ABG pO2 ABG pO2 78.8 L ABG HCO3 ABG O2 Saturation ABG Base Excess -5.0 L ABG Hemoglobin 9.1 L ABG Oxyhemoglobin Oxyhemoglobin 93.7 L Sodium Potassium Chloride Carbon Dioxide BUN Creatinine Glucose POC Glucose 182 H 144 H Lactic Acid Calcium Phosphorus Magnesium AST ALT Alkaline Phosphatase C-Reactive Protein Total Protein Albumin Triglycerides Ur Specific [place] Urine Creatinine Crossmatch 06/15/21 06/15/21 06/15/21 03:55 03:56 10:40 WBC RBC Hgb 8.4 L Hct 25.8 L MCV MCH RDW Plt Count Lymph % (Auto) [place] % (Auto) Lymph # (Auto) [place] # (Auto) Seg Neutrophils % Seg Neuts % (Manual) Lymphocytes % (Manual) Monocytes % (Manual) Basophils % (Manual) Seg Neutrophils # Seg Neutrophils # Man Lymphocytes # (Manual) Monocytes # (Manual) PT INR APTT Fibrinogen D-Dimer ABG pH POC ABG pCO2 POC ABG pO2 ABG pO2 ABG HCO3 ABG O2 Saturation ABG Base Excess ABG Hemoglobin ABG Oxyhemoglobin Oxyhemoglobin Sodium 147 H Potassium Chloride 112.2 H Carbon Dioxide 21 L BUN 47 H Creatinine 1.9 H Glucose 272 H POC Glucose Lactic Acid Calcium 7.3 L Phosphorus Magnesium AST 64 H ALT 106 H Alkaline Phosphatase C-Reactive Protein Total Protein 5.1 L Albumin 2.9 L Triglycerides Ur Specific [place] Urine Creatinine 81.1 H Crossmatch 06/15/21 06/15/21 06/15/21 11:46 17:16 23:17 WBC RBC Hgb Hct MCV MCH RDW Plt Count Lymph % (Auto) [place] % (Auto) Lymph # (Auto) [place] # (Auto) Seg Neutrophils % Seg Neuts % (Manual) Lymphocytes % (Manual) Monocytes % (Manual) Basophils % (Manual) Seg Neutrophils # Seg Neutrophils # Man Lymphocytes # (Manual) Monocytes # (Manual) PT INR APTT Fibrinogen D-Dimer ABG pH POC ABG pCO2 POC ABG pO2 ABG pO2 ABG HCO3 ABG O2 Saturation ABG Base Excess ABG Hemoglobin ABG Oxyhemoglobin Oxyhemoglobin Sodium Potassium Chloride Carbon Dioxide BUN Creatinine Glucose POC Glucose 271 H 268 H 264 H Lactic Acid Calcium Phosphorus Magnesium AST ALT Alkaline Phosphatase C-Reactive Protein Total Protein Albumin Triglycerides Ur Specific [place] Urine Creatinine Crossmatch 06/15/21 06/15/21 06/16/21 Unknown Unknown 04:32 WBC RBC 3.21 L 3.16 L Hgb 8.4 L 8.2 L Hct 26.1 L 25.4 L MCV MCH 26 L 26 L RDW 21.3 H 21.2 H Plt Count 105 L 118 L Lymph % (Auto) [place] % (Auto) Lymph # (Auto) [place] # (Auto) Seg Neutrophils % Seg Neuts % (Manual) Lymphocytes % (Manual) Monocytes % (Manual) Basophils % (Manual) Seg Neutrophils # Seg Neutrophils # Man Lymphocytes # (Manual) Monocytes # (Manual) PT INR APTT Fibrinogen D-Dimer ABG pH 7.465 H POC ABG pCO2 POC ABG pO2 ABG pO2 114.1 H ABG HCO3 ABG O2 Saturation ABG Base Excess ABG Hemoglobin 8.4 L ABG Oxyhemoglobin Oxyhemoglobin Sodium Potassium Chloride Carbon Dioxide BUN Creatinine Glucose POC Glucose Lactic Acid Calcium Phosphorus Magnesium AST ALT Alkaline Phosphatase C-Reactive Protein Total Protein Albumin Triglycerides Ur Specific [place] Urine Creatinine Crossmatch 06/16/21 06/16/21 06/16/21 04:32 04:32 05:08 WBC RBC Hgb Hct MCV MCH RDW Plt Count Lymph % (Auto) [place] % (Auto) Lymph # (Auto) [place] # (Auto) Seg Neutrophils % Seg Neuts % (Manual) Lymphocytes % (Manual) Monocytes % (Manual) Basophils % (Manual) Seg Neutrophils # Seg Neutrophils # Man Lymphocytes # (Manual) Monocytes # (Manual) PT INR APTT Fibrinogen D-Dimer ABG pH POC ABG pCO2 POC ABG pO2 ABG pO2 ABG HCO3 ABG O2 Saturation ABG Base Excess ABG Hemoglobin ABG Oxyhemoglobin Oxyhemoglobin Sodium 148 H Potassium 3.3 L Chloride 115.1 H Carbon Dioxide 21 L BUN 54 H Creatinine 1.6 H Glucose 367 H POC Glucose 356 H Lactic Acid Calcium 7.4 L Phosphorus Magnesium AST ALT Alkaline Phosphatase C-Reactive Protein 3.30 H Total Protein Albumin Triglycerides Ur Specific [place] Urine Creatinine Crossmatch 06/16/21 06/16/21 06/16/21 05:30 11:46 17:03 WBC RBC Hgb Hct MCV MCH RDW Plt Count Lymph % (Auto) [place] % (Auto) Lymph # (Auto) [place] # (Auto) Seg Neutrophils % Seg Neuts % (Manual) Lymphocytes % (Manual) Monocytes % (Manual) Basophils % (Manual) Seg Neutrophils # Seg Neutrophils # Man Lymphocytes # (Manual) Monocytes # (Manual) PT INR APTT Fibrinogen D-Dimer ABG pH 7.475 H POC ABG pCO2 POC ABG pO2 ABG pO2 171.8 H ABG HCO3 ABG O2 Saturation 99.1 H ABG Base Excess ABG Hemoglobin 11.7 L ABG Oxyhemoglobin Oxyhemoglobin Sodium Potassium Chloride Carbon Dioxide BUN Creatinine Glucose POC Glucose 309 H 345 H Lactic Acid Calcium Phosphorus Magnesium AST ALT Alkaline Phosphatase C-Reactive Protein Total Protein Albumin Triglycerides Ur Specific [place] Urine Creatinine Crossmatch 06/16/21 06/16/21 06/17/21 20:18 23:22 04:50 WBC RBC Hgb Hct MCV MCH RDW Plt Count Lymph % (Auto) [place] % (Auto) Lymph # (Auto) [place] # (Auto) Seg Neutrophils % Seg Neuts % (Manual) Lymphocytes % (Manual) Monocytes % (Manual) Basophils % (Manual) Seg Neutrophils # Seg Neutrophils # Man Lymphocytes # (Manual) Monocytes # (Manual) PT INR APTT Fibrinogen D-Dimer ABG pH 7.479 H POC ABG pCO2 POC ABG pO2 ABG pO2 143.1 H ABG HCO3 ABG O2 Saturation ABG Base Excess ABG Hemoglobin 10.0 L ABG Oxyhemoglobin Oxyhemoglobin Sodium Potassium Chloride Carbon Dioxide BUN Creatinine Glucose POC Glucose 325 H 315 H Lactic Acid Calcium Phosphorus Magnesium AST ALT Alkaline Phosphatase C-Reactive Protein Total Protein Albumin Triglycerides Ur Specific [place] Urine Creatinine Crossmatch 06/17/21 06/17/21 06/17/21 05:18 05:30 05:30 WBC RBC 3.17 L Hgb 8.2 L Hct 25.5 L MCV MCH 26 L RDW 21.2 H Plt Count 128 L Lymph % (Auto) [place] % (Auto) Lymph # (Auto) [place] # (Auto) Seg Neutrophils % Seg Neuts % (Manual) Lymphocytes % (Manual) Monocytes % (Manual) Basophils % (Manual) Seg Neutrophils # Seg Neutrophils # Man Lymphocytes # (Manual) Monocytes # (Manual) PT INR APTT Fibrinogen D-Dimer ABG pH POC ABG pCO2 POC ABG pO2 ABG pO2 ABG HCO3 ABG O2 Saturation ABG Base Excess ABG Hemoglobin ABG Oxyhemoglobin Oxyhemoglobin Sodium 148 H Potassium Chloride 113.7 H Carbon Dioxide 20 L BUN 57 H Creatinine 1.4 H Glucose 351 H POC Glucose 324 H Lactic Acid Calcium 8.0 L Phosphorus 2.30 L Magnesium AST ALT Alkaline Phosphatase C-Reactive Protein Total Protein Albumin Triglycerides Ur Specific [place] Urine Creatinine Crossmatch 06/17/21 06/17/21 06/17/21 11:49 17:43 21:42 WBC RBC Hgb Hct MCV MCH RDW Plt Count Lymph % (Auto) [place] % (Auto) Lymph # (Auto) [place] # (Auto) Seg Neutrophils % Seg Neuts % (Manual) Lymphocytes % (Manual) Monocytes % (Manual) Basophils % (Manual) Seg Neutrophils # Seg Neutrophils # Man Lymphocytes # (Manual) Monocytes # (Manual) PT INR APTT Fibrinogen D-Dimer ABG pH POC ABG pCO2 POC ABG pO2 ABG pO2 ABG HCO3 ABG O2 Saturation ABG Base Excess ABG Hemoglobin ABG Oxyhemoglobin Oxyhemoglobin Sodium Potassium Chloride Carbon Dioxide BUN Creatinine Glucose POC Glucose 305 H 307 H 286 H Lactic Acid Calcium Phosphorus Magnesium AST ALT Alkaline Phosphatase C-Reactive Protein Total Protein Albumin Triglycerides Ur Specific [place] Urine Creatinine Crossmatch 06/17/21 06/18/21 06/18/21 23:59 04:20 04:37 WBC RBC 3.53 L Hgb 9.1 L Hct 28.7 L MCV MCH 26 L RDW 21.3 H Plt Count Lymph % (Auto) [place] % (Auto) Lymph # (Auto) [place] # (Auto) Seg Neutrophils % Seg Neuts % (Manual) Lymphocytes % (Manual) Monocytes % (Manual) Basophils % (Manual) Seg Neutrophils # Seg Neutrophils # Man Lymphocytes # (Manual) Monocytes # (Manual) PT INR APTT Fibrinogen D-Dimer ABG pH 7.495 H POC ABG pCO2 POC ABG pO2 ABG pO2 108.3 H ABG HCO3 ABG O2 Saturation ABG Base Excess -2.1 L ABG Hemoglobin 10.0 L ABG Oxyhemoglobin Oxyhemoglobin Sodium Potassium Chloride Carbon Dioxide BUN Creatinine Glucose POC Glucose 264 H Lactic Acid Calcium Phosphorus Magnesium AST ALT Alkaline Phosphatase C-Reactive Protein Total Protein Albumin Triglycerides Ur Specific [place] Urine Creatinine Crossmatch 06/18/21 06/18/21 06/18/21 04:37 05:32 11:21 WBC RBC Hgb Hct MCV MCH RDW Plt Count Lymph % (Auto) [place] % (Auto) Lymph # (Auto) [place] # (Auto) Seg Neutrophils % Seg Neuts % (Manual) Lymphocytes % (Manual) Monocytes % (Manual) Basophils % (Manual) Seg Neutrophils # Seg Neutrophils # Man Lymphocytes # (Manual) Monocytes # (Manual) PT INR APTT Fibrinogen D-Dimer ABG pH POC ABG pCO2 POC ABG pO2 ABG pO2 ABG HCO3 ABG O2 Saturation ABG Base Excess ABG Hemoglobin ABG Oxyhemoglobin Oxyhemoglobin Sodium 148 H Potassium Chloride 114.7 H Carbon Dioxide BUN 59 H Creatinine 1.3 H Glucose 329 H POC Glucose 293 H 291 H Lactic Acid Calcium 8.1 L Phosphorus Magnesium AST ALT Alkaline Phosphatase C-Reactive Protein Total Protein Albumin Triglycerides Ur Specific [place] Urine Creatinine Crossmatch 06/18/21 06/18/21 06/19/21 18:21 21:46 00:15 WBC RBC Hgb Hct MCV MCH RDW Plt Count Lymph % (Auto) [place] % (Auto) Lymph # (Auto) [place] # (Auto) Seg Neutrophils % Seg Neuts % (Manual) Lymphocytes % (Manual) Monocytes % (Manual) Basophils % (Manual) Seg Neutrophils # Seg Neutrophils # Man Lymphocytes # (Manual) Monocytes # (Manual) PT INR APTT Fibrinogen D-Dimer ABG pH POC ABG pCO2 POC ABG pO2 ABG pO2 ABG HCO3 ABG O2 Saturation ABG Base Excess ABG Hemoglobin ABG Oxyhemoglobin Oxyhemoglobin Sodium Potassium Chloride Carbon Dioxide BUN Creatinine Glucose POC Glucose 239 H 259 H 310 H Lactic Acid Calcium Phosphorus Magnesium AST ALT Alkaline Phosphatase C-Reactive Protein Total Protein Albumin Triglycerides Ur Specific [place] Urine Creatinine Crossmatch 06/19/21 06/19/21 06/19/21 04:00 04:00 04:50 WBC RBC 3.64 L Hgb 9.1 L Hct 29.1 L MCV MCH 25 L RDW 21.5 H Plt Count Lymph % (Auto) [place] % (Auto) Lymph # (Auto) [place] # (Auto) Seg Neutrophils % Seg Neuts % (Manual) Lymphocytes % (Manual) Monocytes % (Manual) Basophils % (Manual) Seg Neutrophils # Seg Neutrophils # Man Lymphocytes # (Manual) Monocytes # (Manual) PT INR APTT Fibrinogen D-Dimer ABG pH POC ABG pCO2 POC ABG pO2 ABG pO2 78.9 L ABG HCO3 ABG O2 Saturation ABG Base Excess -3.2 L ABG Hemoglobin 7.6 L ABG Oxyhemoglobin Oxyhemoglobin Sodium 148 H Potassium Chloride 114.9 H Carbon Dioxide 19 L BUN 59 H Creatinine Glucose 345 H POC Glucose Lactic Acid Calcium 8.1 L Phosphorus 4.60 H D Magnesium 2.40 H AST ALT Alkaline Phosphatase C-Reactive Protein Total Protein Albumin Triglycerides Ur Specific [place] Urine Creatinine Crossmatch 06/19/21 06/19/21 06/19/21 06:28 11:11 17:20 WBC RBC Hgb Hct MCV MCH RDW Plt Count Lymph % (Auto) [place] % (Auto) Lymph # (Auto) [place] # (Auto) Seg Neutrophils % Seg Neuts % (Manual) Lymphocytes % (Manual) Monocytes % (Manual) Basophils % (Manual) Seg Neutrophils # Seg Neutrophils # Man Lymphocytes # (Manual) Monocytes # (Manual) PT 29.7 H INR 2.57 H APTT Fibrinogen D-Dimer ABG pH POC ABG pCO2 POC ABG pO2 ABG pO2 ABG HCO3 ABG O2 Saturation ABG Base Excess ABG Hemoglobin ABG Oxyhemoglobin Oxyhemoglobin Sodium Potassium Chloride Carbon Dioxide BUN Creatinine Glucose POC Glucose 279 H 275 H Lactic Acid Calcium Phosphorus Magnesium AST ALT Alkaline Phosphatase C-Reactive Protein Total Protein Albumin Triglycerides Ur Specific [place] Urine Creatinine Crossmatch 06/19/21 06/19/21 06/19/21 18:30 19:20 23:27 WBC RBC Hgb 8.0 L Hct 25.0 L MCV MCH RDW Plt Count Lymph % (Auto) [place] % (Auto) Lymph # (Auto) [place] # (Auto) Seg Neutrophils % Seg Neuts % (Manual) Lymphocytes % (Manual) Monocytes % (Manual) Basophils % (Manual) Seg Neutrophils # Seg Neutrophils # Man Lymphocytes # (Manual) Monocytes # (Manual) PT INR APTT Fibrinogen D-Dimer ABG pH POC ABG pCO2 POC ABG pO2 ABG pO2 ABG HCO3 ABG O2 Saturation ABG Base Excess ABG Hemoglobin ABG Oxyhemoglobin Oxyhemoglobin Sodium Potassium Chloride Carbon Dioxide BUN Creatinine Glucose POC Glucose 279 H 290 H Lactic Acid Calcium Phosphorus Magnesium AST ALT Alkaline Phosphatase C-Reactive Protein Total Protein Albumin Triglycerides Ur Specific [place] Urine Creatinine Crossmatch 06/20/21 06/20/21 06/20/21 00:00 04:33 04:33 WBC 22.3 H RBC 3.31 L Hgb 7.4 L 8.5 L Hct 22.5 L 26.5 L MCV MCH 26 L RDW 21.5 H Plt Count Lymph % (Auto) [place] % (Auto) Lymph # (Auto) [place] # (Auto) Seg Neutrophils % Seg Neuts % (Manual) Lymphocytes % (Manual) Monocytes % (Manual) Basophils % (Manual) Seg Neutrophils # Seg Neutrophils # Man Lymphocytes # (Manual) Monocytes # (Manual) PT INR APTT Fibrinogen D-Dimer ABG pH POC ABG pCO2 POC ABG pO2 ABG pO2 ABG HCO3 ABG O2 Saturation ABG Base Excess ABG Hemoglobin ABG Oxyhemoglobin Oxyhemoglobin Sodium 148 H Potassium Chloride 114.2 H Carbon Dioxide BUN 70 H Creatinine 1.4 H Glucose 313 H POC Glucose Lactic Acid Calcium 8.2 L Phosphorus Magnesium 2.50 H AST ALT Alkaline Phosphatase C-Reactive Protein Total Protein Albumin Triglycerides Ur Specific [place] Urine Creatinine Crossmatch 06/20/21 06/20/21 06/20/21 04:33 05:27 11:21 WBC RBC Hgb Hct MCV MCH RDW Plt Count Lymph % (Auto) [place] % (Auto) Lymph # (Auto) [place] # (Auto) Seg Neutrophils % Seg Neuts % (Manual) Lymphocytes % (Manual) Monocytes % (Manual) Basophils % (Manual) Seg Neutrophils # Seg Neutrophils # Man Lymphocytes # (Manual) Monocytes # (Manual) PT 18.3 H INR 1.37 H APTT Fibrinogen D-Dimer ABG pH POC ABG pCO2 POC ABG pO2 ABG pO2 ABG HCO3 ABG O2 Saturation ABG Base Excess ABG Hemoglobin ABG Oxyhemoglobin Oxyhemoglobin Sodium Potassium Chloride Carbon Dioxide BUN Creatinine Glucose POC Glucose 288 H 306 H Lactic Acid Calcium Phosphorus Magnesium AST ALT Alkaline Phosphatase C-Reactive Protein Total Protein Albumin Triglycerides Ur Specific [place] Urine Creatinine Crossmatch 06/20/21 06/20/21 06/20/21 12:23 15:56 18:20 WBC RBC Hgb 8.2 L 8.1 L Hct 25.9 L 25.5 L MCV MCH RDW Plt Count Lymph % (Auto) [place] % (Auto) Lymph # (Auto) [place] # (Auto) Seg Neutrophils % Seg Neuts % (Manual) Lymphocytes % (Manual) Monocytes % (Manual) Basophils % (Manual) Seg Neutrophils # Seg Neutrophils # Man Lymphocytes # (Manual) Monocytes # (Manual) PT INR APTT Fibrinogen D-Dimer ABG pH POC ABG pCO2 POC ABG pO2 ABG pO2 ABG HCO3 ABG O2 Saturation ABG Base Excess ABG Hemoglobin ABG Oxyhemoglobin Oxyhemoglobin Sodium Potassium Chloride Carbon Dioxide BUN Creatinine Glucose POC Glucose 293 H Lactic Acid Calcium Phosphorus Magnesium AST ALT Alkaline Phosphatase C-Reactive Protein Total Protein Albumin Triglycerides Ur Specific [place] Urine Creatinine Crossmatch 06/20/21 06/21/21 06/21/21 23:11 04:20 04:42 WBC 15.1 H RBC 2.84 L Hgb 7.3 L Hct 23.1 L MCV MCH 26 L RDW 21.5 H Plt Count Lymph % (Auto) 3.5 L [place] % (Auto) 11.7 H Lymph # (Auto) 0.5 L [place] # (Auto) 1.8 H Seg Neutrophils % 84.7 H Seg Neuts % (Manual) Lymphocytes % (Manual) Monocytes % (Manual) Basophils % (Manual) Seg Neutrophils # 12.8 H Seg Neutrophils # Man Lymphocytes # (Manual) Monocytes # (Manual) PT INR APTT Fibrinogen D-Dimer ABG pH POC ABG pCO2 POC ABG pO2 ABG pO2 98.5 H ABG HCO3 ABG O2 Saturation ABG Base Excess ABG Hemoglobin 7.2 L ABG Oxyhemoglobin Oxyhemoglobin Sodium Potassium Chloride Carbon Dioxide BUN Creatinine Glucose POC Glucose 206 H Lactic Acid Calcium Phosphorus Magnesium AST ALT Alkaline Phosphatase C-Reactive Protein Total Protein Albumin Triglycerides Ur Specific [place] Urine Creatinine Crossmatch 06/21/21 06/21/21 06/21/21 04:42 05:08 11:06 WBC RBC Hgb Hct MCV MCH RDW Plt Count Lymph % (Auto) [place] % (Auto) Lymph # (Auto) [place] # (Auto) Seg Neutrophils % Seg Neuts % (Manual) Lymphocytes % (Manual) Monocytes % (Manual) Basophils % (Manual) Seg Neutrophils # Seg Neutrophils # Man Lymphocytes # (Manual) Monocytes # (Manual) PT INR APTT Fibrinogen D-Dimer ABG pH POC ABG pCO2 POC ABG pO2 ABG pO2 ABG HCO3 ABG O2 Saturation ABG Base Excess ABG Hemoglobin ABG Oxyhemoglobin Oxyhemoglobin Sodium 151 H Potassium Chloride 117.2 H Carbon Dioxide 21 L BUN 75 H Creatinine 1.6 H Glucose 216 H POC Glucose 190 H 204 H Lactic Acid Calcium 7.9 L Phosphorus Magnesium 2.60 H AST ALT Alkaline Phosphatase C-Reactive Protein Total Protein Albumin Triglycerides 254 H Ur Specific [place] Urine Creatinine Crossmatch 06/21/21 06/21/21 06/21/21 14:00 16:42 21:52 WBC RBC Hgb 7.1 L 7.2 L Hct 22.0 L 22.1 L MCV MCH RDW Plt Count Lymph % (Auto) [place] % (Auto) Lymph # (Auto) [place] # (Auto) Seg Neutrophils % Seg Neuts % (Manual) Lymphocytes % (Manual) Monocytes % (Manual) Basophils % (Manual) Seg Neutrophils # Seg Neutrophils # Man Lymphocytes # (Manual) Monocytes # (Manual) PT INR APTT Fibrinogen D-Dimer ABG pH POC ABG pCO2 POC ABG pO2 ABG pO2 ABG HCO3 ABG O2 Saturation ABG Base Excess ABG Hemoglobin ABG Oxyhemoglobin Oxyhemoglobin Sodium Potassium Chloride Carbon Dioxide BUN Creatinine Glucose POC Glucose 207 H Lactic Acid Calcium Phosphorus Magnesium AST ALT Alkaline Phosphatase C-Reactive Protein Total Protein Albumin Triglycerides Ur Specific [place] Urine Creatinine Crossmatch 06/21/21 06/22/21 06/22/21 23:29 04:30 04:30 WBC 16.8 H RBC 2.93 L Hgb 7.4 L Hct 23.9 L MCV MCH 25 L RDW 21.8 H Plt Count Lymph % (Auto) [place] % (Auto) Lymph # (Auto) [place] # (Auto) Seg Neutrophils % Seg Neuts % (Manual) Lymphocytes % (Manual) Monocytes % (Manual) Basophils % (Manual) Seg Neutrophils # Seg Neutrophils # Man Lymphocytes # (Manual) Monocytes # (Manual) PT INR APTT Fibrinogen D-Dimer ABG pH POC ABG pCO2 POC ABG pO2 ABG pO2 ABG HCO3 ABG O2 Saturation ABG Base Excess ABG Hemoglobin ABG Oxyhemoglobin Oxyhemoglobin Sodium 151 H Potassium Chloride 118.7 H Carbon Dioxide BUN 57 H Creatinine Glucose 238 H POC Glucose 273 H Lactic Acid Calcium 8.0 L Phosphorus Magnesium 2.70 H AST ALT Alkaline Phosphatase C-Reactive Protein Total Protein Albumin Triglycerides Ur Specific [place] Urine Creatinine Crossmatch 06/22/21 06/22/21 06/22/21 05:17 11:31 14:20 WBC RBC Hgb 7.4 L Hct 22.5 L MCV MCH RDW Plt Count Lymph % (Auto) [place] % (Auto) Lymph # (Auto) [place] # (Auto) Seg Neutrophils % Seg Neuts % (Manual) Lymphocytes % (Manual) Monocytes % (Manual) Basophils % (Manual) Seg Neutrophils # Seg Neutrophils # Man Lymphocytes # (Manual) Monocytes # (Manual) PT INR APTT Fibrinogen D-Dimer ABG pH POC ABG pCO2 POC ABG pO2 ABG pO2 ABG HCO3 ABG O2 Saturation ABG Base Excess ABG Hemoglobin ABG Oxyhemoglobin Oxyhemoglobin Sodium Potassium Chloride Carbon Dioxide BUN Creatinine Glucose POC Glucose 214 H 214 H Lactic Acid Calcium Phosphorus Magnesium AST ALT Alkaline Phosphatase C-Reactive Protein Total Protein Albumin Triglycerides Ur Specific [place] Urine Creatinine Crossmatch 06/22/21 06/22/21 06/23/21 17:18 23:47 05:33 WBC RBC Hgb Hct MCV MCH RDW Plt Count Lymph % (Auto) [place] % (Auto) Lymph # (Auto) [place] # (Auto) Seg Neutrophils % Seg Neuts % (Manual) Lymphocytes % (Manual) Monocytes % (Manual) Basophils % (Manual) Seg Neutrophils # Seg Neutrophils # Man Lymphocytes # (Manual) Monocytes # (Manual) PT INR APTT Fibrinogen D-Dimer ABG pH POC ABG pCO2 POC ABG pO2 ABG pO2 ABG HCO3 ABG O2 Saturation ABG Base Excess ABG Hemoglobin ABG Oxyhemoglobin Oxyhemoglobin Sodium Potassium Chloride Carbon Dioxide BUN Creatinine Glucose POC Glucose 238 H 227 H 202 H Lactic Acid Calcium Phosphorus Magnesium AST ALT Alkaline Phosphatase C-Reactive Protein Total Protein Albumin Triglycerides Ur Specific [place] Urine Creatinine Crossmatch 06/23/21 06/23/21 06/23/21 10:04 10:04 11:06 WBC 20.3 H RBC 2.71 L Hgb 7.3 L Hct 21.8 L MCV MCH 27 L RDW 22.1 H Plt Count Lymph % (Auto) [place] % (Auto) Lymph # (Auto) [place] # (Auto) Seg Neutrophils % Seg Neuts % (Manual) Lymphocytes % (Manual) Monocytes % (Manual) Basophils % (Manual) Seg Neutrophils # Seg Neutrophils # Man Lymphocytes # (Manual) Monocytes # (Manual) PT INR APTT Fibrinogen D-Dimer ABG pH POC ABG pCO2 POC ABG pO2 ABG pO2 ABG HCO3 ABG O2 Saturation ABG Base Excess ABG Hemoglobin ABG Oxyhemoglobin Oxyhemoglobin Sodium 151 H Potassium 3.2 L Chloride 116.9 H Carbon Dioxide BUN 40 H Creatinine Glucose 208 H POC Glucose 204 H Lactic Acid Calcium 8.0 L Phosphorus 1.80 L D Magnesium AST ALT Alkaline Phosphatase C-Reactive Protein Total Protein Albumin Triglycerides Ur Specific [place] Urine Creatinine Crossmatch 06/23/21 06/23/21 06/24/21 16:11 23:47 04:00 WBC 16.9 H RBC 2.49 L Hgb 6.6 L Hct 20.3 L MCV MCH 26 L RDW 22.6 H Plt Count Lymph % (Auto) [place] % (Auto) Lymph # (Auto) [place] # (Auto) Seg Neutrophils % Seg Neuts % (Manual) Lymphocytes % (Manual) Monocytes % (Manual) Basophils % (Manual) Seg Neutrophils # Seg Neutrophils # Man Lymphocytes # (Manual) Monocytes # (Manual) PT INR APTT Fibrinogen D-Dimer ABG pH POC ABG pCO2 POC ABG pO2 ABG pO2 ABG HCO3 ABG O2 Saturation ABG Base Excess ABG Hemoglobin ABG Oxyhemoglobin Oxyhemoglobin Sodium Potassium Chloride Carbon Dioxide BUN Creatinine Glucose POC Glucose 228 H 189 H Lactic Acid Calcium Phosphorus Magnesium AST ALT Alkaline Phosphatase C-Reactive Protein Total Protein Albumin Triglycerides Ur Specific [place] Urine Creatinine Crossmatch 06/24/21 06/24/21 06/24/21 04:00 05:43 06:40 WBC RBC Hgb Hct MCV MCH RDW Plt Count Lymph % (Auto) [place] % (Auto) Lymph # (Auto) [place] # (Auto) Seg Neutrophils % Seg Neuts % (Manual) Lymphocytes % (Manual) Monocytes % (Manual) Basophils % (Manual) Seg Neutrophils # Seg Neutrophils # Man Lymphocytes # (Manual) Monocytes # (Manual) PT INR APTT Fibrinogen D-Dimer ABG pH POC ABG pCO2 POC ABG pO2 ABG pO2 ABG HCO3 ABG O2 Saturation ABG Base Excess ABG Hemoglobin ABG Oxyhemoglobin Oxyhemoglobin Sodium 148 H Potassium 3.2 L Chloride 115.6 H Carbon Dioxide BUN 35 H Creatinine Glucose 153 H POC Glucose 134 H Lactic Acid Calcium 7.9 L Phosphorus 2.40 L D Magnesium AST ALT Alkaline Phosphatase C-Reactive Protein Total Protein Albumin Triglycerides Ur Specific [place] Urine Creatinine Crossmatch See Detail 06/24/21 06/24/21 06/24/21 11:08 16:47 21:49 WBC RBC Hgb Hct MCV MCH RDW Plt Count Lymph % (Auto) [place] % (Auto) Lymph # (Auto) [place] # (Auto) Seg Neutrophils % Seg Neuts % (Manual) Lymphocytes % (Manual) Monocytes % (Manual) Basophils % (Manual) Seg Neutrophils # Seg Neutrophils # Man Lymphocytes # (Manual) Monocytes # (Manual) PT INR APTT Fibrinogen D-Dimer ABG pH POC ABG pCO2 POC ABG pO2 ABG pO2 ABG HCO3 ABG O2 Saturation ABG Base Excess ABG Hemoglobin ABG Oxyhemoglobin Oxyhemoglobin Sodium Potassium Chloride Carbon Dioxide BUN Creatinine Glucose POC Glucose 153 H 201 H 132 H Lactic Acid Calcium Phosphorus Magnesium AST ALT Alkaline Phosphatase C-Reactive Protein Total Protein Albumin Triglycerides Ur Specific [place] Urine Creatinine Crossmatch 06/24/21 06/25/21 06/25/21 23:24 05:30 09:00 WBC RBC Hgb 8.3 L Hct 27.0 L MCV MCH RDW Plt Count Lymph % (Auto) [place] % (Auto) Lymph # (Auto) [place] # (Auto) Seg Neutrophils % Seg Neuts % (Manual) Lymphocytes % (Manual) Monocytes % (Manual) Basophils % (Manual) Seg Neutrophils # Seg Neutrophils # Man Lymphocytes # (Manual) Monocytes # (Manual) PT INR APTT Fibrinogen D-Dimer ABG pH POC ABG pCO2 POC ABG pO2 ABG pO2 ABG HCO3 ABG O2 Saturation ABG Base Excess ABG Hemoglobin ABG Oxyhemoglobin Oxyhemoglobin Sodium Potassium Chloride Carbon Dioxide BUN Creatinine Glucose POC Glucose 170 H 151 H Lactic Acid Calcium Phosphorus Magnesium AST ALT Alkaline Phosphatase C-Reactive Protein Total Protein Albumin Triglycerides Ur Specific [place] Urine Creatinine Crossmatch 06/25/21 06/25/21 06/25/21 11:29 14:24 16:48 WBC RBC Hgb 8.5 L Hct 27.5 L MCV MCH RDW Plt Count Lymph % (Auto) [place] % (Auto) Lymph # (Auto) [place] # (Auto) Seg Neutrophils % Seg Neuts % (Manual) Lymphocytes % (Manual) Monocytes % (Manual) Basophils % (Manual) Seg Neutrophils # Seg Neutrophils # Man Lymphocytes # (Manual) Monocytes # (Manual) PT INR APTT Fibrinogen D-Dimer ABG pH POC ABG pCO2 POC ABG pO2 ABG pO2 ABG HCO3 ABG O2 Saturation ABG Base Excess ABG Hemoglobin ABG Oxyhemoglobin Oxyhemoglobin Sodium Potassium Chloride Carbon Dioxide BUN Creatinine Glucose POC Glucose 189 H 224 H Lactic Acid Calcium Phosphorus Magnesium AST ALT Alkaline Phosphatase C-Reactive Protein Total Protein Albumin Triglycerides Ur Specific [place] Urine Creatinine Crossmatch 06/25/21 06/25/21 06/25/21 23:39 Unknown Unknown WBC 16.5 H RBC 2.90 L Hgb 8.0 L Hct 23.8 L MCV MCH RDW 22.8 H Plt Count Lymph % (Auto) [place] % (Auto) Lymph # (Auto) [place] # (Auto) Seg Neutrophils % Seg Neuts % (Manual) Lymphocytes % (Manual) Monocytes % (Manual) Basophils % (Manual) Seg Neutrophils # Seg Neutrophils # Man Lymphocytes # (Manual) Monocytes # (Manual) PT INR APTT Fibrinogen D-Dimer ABG pH POC ABG pCO2 POC ABG pO2 ABG pO2 ABG HCO3 ABG O2 Saturation ABG Base Excess ABG Hemoglobin ABG Oxyhemoglobin Oxyhemoglobin Sodium 149 H Potassium Chloride 115.6 H Carbon Dioxide BUN 28 H Creatinine Glucose 157 H POC Glucose 187 H Lactic Acid Calcium 8.0 L Phosphorus Magnesium AST ALT Alkaline Phosphatase C-Reactive Protein Total Protein Albumin Triglycerides Ur Specific [place] Urine Creatinine Crossmatch 06/26/21 06/26/21 06/26/21 05:22 05:29 05:29 WBC 16.2 H RBC 3.03 L Hgb 8.0 L Hct 25.1 L MCV MCH 26 L RDW 23.2 H Plt Count Lymph % (Auto) [place] % (Auto) Lymph # (Auto) [place] # (Auto) Seg Neutrophils % Seg Neuts % (Manual) Lymphocytes % (Manual) Monocytes % (Manual) Basophils % (Manual) Seg Neutrophils # Seg Neutrophils # Man Lymphocytes # (Manual) Monocytes # (Manual) PT INR APTT Fibrinogen D-Dimer ABG pH POC ABG pCO2 POC ABG pO2 ABG pO2 ABG HCO3 ABG O2 Saturation ABG Base Excess ABG Hemoglobin ABG Oxyhemoglobin Oxyhemoglobin Sodium 150 H Potassium Chloride 114.8 H Carbon Dioxide BUN 29 H Creatinine Glucose 229 H POC Glucose 211 H Lactic Acid Calcium 8.2 L Phosphorus Magnesium AST ALT Alkaline Phosphatase C-Reactive Protein Total Protein Albumin Triglycerides Ur Specific [place] Urine Creatinine Crossmatch 06/26/21 06/26/21 06/26/21 11:05 15:59 22:00 WBC RBC Hgb Hct MCV MCH RDW Plt Count Lymph % (Auto) [place] % (Auto) Lymph # (Auto) [place] # (Auto) Seg Neutrophils % Seg Neuts % (Manual) Lymphocytes % (Manual) Monocytes % (Manual) Basophils % (Manual) Seg Neutrophils # Seg Neutrophils # Man Lymphocytes # (Manual) Monocytes # (Manual) PT INR APTT Fibrinogen D-Dimer ABG pH POC ABG pCO2 POC ABG pO2 ABG pO2 ABG HCO3 ABG O2 Saturation ABG Base Excess ABG Hemoglobin ABG Oxyhemoglobin Oxyhemoglobin Sodium Potassium Chloride Carbon Dioxide BUN Creatinine Glucose POC Glucose 213 H 222 H 161 H Lactic Acid Calcium Phosphorus Magnesium AST ALT Alkaline Phosphatase C-Reactive Protein Total Protein Albumin Triglycerides Ur Specific [place] Urine Creatinine Crossmatch 06/26/21 06/27/21 06/27/21 23:24 04:15 04:15 WBC 14.3 H RBC 2.96 L Hgb 8.1 L Hct 24.6 L MCV MCH 27 L RDW 23.0 H Plt Count Lymph % (Auto) [place] % (Auto) Lymph # (Auto) [place] # (Auto) Seg Neutrophils % Seg Neuts % (Manual) Lymphocytes % (Manual) Monocytes % (Manual) Basophils % (Manual) Seg Neutrophils # Seg Neutrophils # Man Lymphocytes # (Manual) Monocytes # (Manual) PT INR APTT Fibrinogen D-Dimer ABG pH POC ABG pCO2 POC ABG pO2 ABG pO2 ABG HCO3 ABG O2 Saturation ABG Base Excess ABG Hemoglobin ABG Oxyhemoglobin Oxyhemoglobin Sodium 150 H Potassium Chloride 113.8 H Carbon Dioxide BUN 26 H Creatinine Glucose 246 H POC Glucose 164 H Lactic Acid Calcium 7.8 L Phosphorus Magnesium AST ALT Alkaline Phosphatase C-Reactive Protein Total Protein Albumin Triglycerides Ur Specific [place] Urine Creatinine Crossmatch 06/27/21 06/27/21 06/27/21 05:44 11:07 16:06 WBC RBC Hgb Hct MCV MCH RDW Plt Count Lymph % (Auto) [place] % (Auto) Lymph # (Auto) [place] # (Auto) Seg Neutrophils % Seg Neuts % (Manual) Lymphocytes % (Manual) Monocytes % (Manual) Basophils % (Manual) Seg Neutrophils # Seg Neutrophils # Man Lymphocytes # (Manual) Monocytes # (Manual) PT INR APTT Fibrinogen D-Dimer ABG pH POC ABG pCO2 POC ABG pO2 ABG pO2 ABG HCO3 ABG O2 Saturation ABG Base Excess ABG Hemoglobin ABG Oxyhemoglobin Oxyhemoglobin Sodium Potassium Chloride Carbon Dioxide BUN Creatinine Glucose POC Glucose 226 H 204 H 224 H Lactic Acid Calcium Phosphorus Magnesium AST ALT Alkaline Phosphatase C-Reactive Protein Total Protein Albumin Triglycerides Ur Specific [place] Urine Creatinine Crossmatch 06/27/21 06/28/21 06/28/21 23:49 04:00 04:00 WBC 15.4 H RBC 3.05 L Hgb 8.2 L Hct 25.0 L MCV MCH 27 L RDW 22.6 H Plt Count Lymph % (Auto) [place] % (Auto) Lymph # (Auto) [place] # (Auto) Seg Neutrophils % Seg Neuts % (Manual) Lymphocytes % (Manual) Monocytes % (Manual) Basophils % (Manual) Seg Neutrophils # Seg Neutrophils # Man Lymphocytes # (Manual) Monocytes # (Manual) PT INR APTT Fibrinogen D-Dimer ABG pH POC ABG pCO2 POC ABG pO2 ABG pO2 ABG HCO3 ABG O2 Saturation ABG Base Excess ABG Hemoglobin ABG Oxyhemoglobin Oxyhemoglobin Sodium 152 H Potassium 3.0 L Chloride 114.9 H Carbon Dioxide BUN 24 H Creatinine Glucose 158 H POC Glucose 195 H Lactic Acid Calcium 8.1 L Phosphorus Magnesium AST ALT Alkaline Phosphatase C-Reactive Protein Total Protein Albumin Triglycerides Ur Specific [place] Urine Creatinine Crossmatch 06/28/21 06/28/21 06/28/21 05:05 11:47 17:21 WBC RBC Hgb Hct MCV MCH RDW Plt Count Lymph % (Auto) [place] % (Auto) Lymph # (Auto) [place] # (Auto) Seg Neutrophils % Seg Neuts % (Manual) Lymphocytes % (Manual) Monocytes % (Manual) Basophils % (Manual) Seg Neutrophils # Seg Neutrophils # Man Lymphocytes # (Manual) Monocytes # (Manual) PT INR APTT Fibrinogen D-Dimer ABG pH POC ABG pCO2 POC ABG pO2 ABG pO2 ABG HCO3 ABG O2 Saturation ABG Base Excess ABG Hemoglobin ABG Oxyhemoglobin Oxyhemoglobin Sodium Potassium Chloride Carbon Dioxide BUN Creatinine Glucose POC Glucose 121 H 164 H 166 H Lactic Acid Calcium Phosphorus Magnesium AST ALT Alkaline Phosphatase C-Reactive Protein Total Protein Albumin Triglycerides Ur Specific [place] Urine Creatinine Crossmatch 06/28/21 06/28/21 06/29/21 18:14 21:54 00:55 WBC RBC Hgb Hct MCV MCH RDW Plt Count Lymph % (Auto) [place] % (Auto) Lymph # (Auto) [place] # (Auto) Seg Neutrophils % Seg Neuts % (Manual) Lymphocytes % (Manual) Monocytes % (Manual) Basophils % (Manual) Seg Neutrophils # Seg Neutrophils # Man Lymphocytes # (Manual) Monocytes # (Manual) PT INR APTT Fibrinogen D-Dimer ABG pH POC ABG pCO2 POC ABG pO2 ABG pO2 ABG HCO3 ABG O2 Saturation ABG Base Excess ABG Hemoglobin ABG Oxyhemoglobin Oxyhemoglobin Sodium Potassium Chloride Carbon Dioxide BUN Creatinine Glucose POC Glucose 150 H 148 H 176 H Lactic Acid Calcium Phosphorus Magnesium AST ALT Alkaline Phosphatase C-Reactive Protein Total Protein Albumin Triglycerides Ur Specific [place] Urine Creatinine Crossmatch 06/29/21 06/29/21 06/29/21 04:00 04:00 05:20 WBC 15.3 H RBC 3.04 L Hgb 8.0 L Hct 25.0 L MCV MCH 26 L RDW 22.3 H Plt Count Lymph % (Auto) [place] % (Auto) Lymph # (Auto) [place] # (Auto) Seg Neutrophils % Seg Neuts % (Manual) Lymphocytes % (Manual) Monocytes % (Manual) Basophils % (Manual) Seg Neutrophils # Seg Neutrophils # Man Lymphocytes # (Manual) Monocytes # (Manual) PT INR APTT Fibrinogen D-Dimer ABG pH POC ABG pCO2 POC ABG pO2 ABG pO2 ABG HCO3 ABG O2 Saturation ABG Base Excess ABG Hemoglobin ABG Oxyhemoglobin Oxyhemoglobin Sodium Potassium 3.1 L Chloride 108.7 H Carbon Dioxide BUN 20 H Creatinine Glucose 194 H POC Glucose 185 H Lactic Acid Calcium 8.0 L Phosphorus Magnesium AST ALT Alkaline Phosphatase C-Reactive Protein Total Protein Albumin Triglycerides Ur Specific [place] Urine Creatinine Crossmatch 06/29/21 06/29/21 06/30/21 12:18 17:20 00:49 WBC RBC Hgb Hct MCV MCH RDW Plt Count Lymph % (Auto) [place] % (Auto) Lymph # (Auto) [place] # (Auto) Seg Neutrophils % Seg Neuts % (Manual) Lymphocytes % (Manual) Monocytes % (Manual) Basophils % (Manual) Seg Neutrophils # Seg Neutrophils # Man Lymphocytes # (Manual) Monocytes # (Manual) PT INR APTT Fibrinogen D-Dimer ABG pH POC ABG pCO2 POC ABG pO2 ABG pO2 ABG HCO3 ABG O2 Saturation ABG Base Excess ABG Hemoglobin ABG Oxyhemoglobin Oxyhemoglobin Sodium Potassium Chloride Carbon Dioxide BUN Creatinine Glucose POC Glucose 135 H 185 H 156 H Lactic Acid Calcium Phosphorus Magnesium AST ALT Alkaline Phosphatase C-Reactive Protein Total Protein Albumin Triglycerides Ur Specific [place] Urine Creatinine Crossmatch 06/30/21 06/30/21 06/30/21 04:25 04:25 08:14 WBC 13.0 H RBC 3.19 L Hgb 8.2 L Hct 26.2 L MCV MCH 26 L RDW 22.3 H Plt Count Lymph % (Auto) [place] % (Auto) Lymph # (Auto) [place] # (Auto) Seg Neutrophils % Seg Neuts % (Manual) 81.0 H Lymphocytes % (Manual) 10.0 L Monocytes % (Manual) 8.0 H Basophils % (Manual) Seg Neutrophils # Seg Neutrophils # Man 10.5 H Lymphocytes # (Manual) Monocytes # (Manual) 1.0 H PT INR APTT Fibrinogen D-Dimer ABG pH POC ABG pCO2 POC ABG pO2 ABG pO2 ABG HCO3 ABG O2 Saturation ABG Base Excess ABG Hemoglobin ABG Oxyhemoglobin Oxyhemoglobin Sodium Potassium 3.0 L Chloride Carbon Dioxide BUN 20 H Creatinine Glucose 104 H POC Glucose 119 H Lactic Acid Calcium 8.3 L Phosphorus Magnesium AST ALT Alkaline Phosphatase C-Reactive Protein Total Protein Albumin Triglycerides Ur Specific [place] Urine Creatinine Crossmatch 06/30/21 06/30/21 06/30/21 11:36 16:24 22:44 WBC RBC Hgb Hct MCV MCH RDW Plt Count Lymph % (Auto) [place] % (Auto) Lymph # (Auto) [place] # (Auto) Seg Neutrophils % Seg Neuts % (Manual) Lymphocytes % (Manual) Monocytes % (Manual) Basophils % (Manual) Seg Neutrophils # Seg Neutrophils # Man Lymphocytes # (Manual) Monocytes # (Manual) PT INR APTT Fibrinogen D-Dimer ABG pH POC ABG pCO2 POC ABG pO2 ABG pO2 ABG HCO3 ABG O2 Saturation ABG Base Excess ABG Hemoglobin ABG Oxyhemoglobin Oxyhemoglobin Sodium Potassium Chloride Carbon Dioxide BUN Creatinine Glucose POC Glucose 154 H 208 H 174 H Lactic Acid Calcium Phosphorus Magnesium AST ALT Alkaline Phosphatase C-Reactive Protein Total Protein Albumin Triglycerides Ur Specific [place] Urine Creatinine Crossmatch 07/01/21 07/01/21 07/01/21 05:29 05:29 05:54 WBC 11.9 H RBC 3.00 L Hgb 8.1 L Hct 24.4 L MCV MCH 27 L RDW 21.7 H Plt Count Lymph % (Auto) [place] % (Auto) Lymph # (Auto) [place] # (Auto) Seg Neutrophils % Seg Neuts % (Manual) Lymphocytes % (Manual) Monocytes % (Manual) Basophils % (Manual) Seg Neutrophils # Seg Neutrophils # Man Lymphocytes # (Manual) Monocytes # (Manual) PT INR APTT Fibrinogen D-Dimer ABG pH POC ABG pCO2 POC ABG pO2 ABG pO2 ABG HCO3 ABG O2 Saturation ABG Base Excess ABG Hemoglobin ABG Oxyhemoglobin Oxyhemoglobin Sodium Potassium Chloride Carbon Dioxide BUN Creatinine Glucose 177 H POC Glucose 170 H Lactic Acid Calcium Phosphorus Magnesium AST ALT Alkaline Phosphatase C-Reactive Protein Total Protein Albumin Triglycerides Ur Specific [place] Urine Creatinine Crossmatch 07/01/21 07/02/21 07/02/21 10:54 05:05 10:18 WBC RBC Hgb Hct MCV MCH RDW Plt Count Lymph % (Auto) [place] % (Auto) Lymph # (Auto) [place] # (Auto) Seg Neutrophils % Seg Neuts % (Manual) Lymphocytes % (Manual) Monocytes % (Manual) Basophils % (Manual) Seg Neutrophils # Seg Neutrophils # Man Lymphocytes # (Manual) Monocytes # (Manual) PT INR APTT Fibrinogen D-Dimer ABG pH 7.488 H POC ABG pCO2 POC ABG pO2 ABG pO2 97.2 H ABG HCO3 27.1 H ABG O2 Saturation ABG Base Excess 3.5 H ABG Hemoglobin 7.9 L ABG Oxyhemoglobin Oxyhemoglobin Sodium Potassium Chloride Carbon Dioxide BUN Creatinine Glucose POC Glucose 184 H 182 H Lactic Acid Calcium Phosphorus Magnesium AST ALT Alkaline Phosphatase C-Reactive Protein Total Protein Albumin Triglycerides Ur Specific [place] Urine Creatinine Crossmatch 07/02/21 07/02/21 07/02/21 12:14 16:18 22:27 WBC RBC Hgb Hct MCV MCH RDW Plt Count Lymph % (Auto) [place] % (Auto) Lymph # (Auto) [place] # (Auto) Seg Neutrophils % Seg Neuts % (Manual) Lymphocytes % (Manual) Monocytes % (Manual) Basophils % (Manual) Seg Neutrophils # Seg Neutrophils # Man Lymphocytes # (Manual) Monocytes # (Manual) PT INR APTT Fibrinogen D-Dimer ABG pH 7.199 L* POC ABG pCO2 POC ABG pO2 ABG pO2 104.5 H ABG HCO3 30.3 H ABG O2 Saturation ABG Base Excess ABG Hemoglobin 9.8 L ABG Oxyhemoglobin Oxyhemoglobin 94.6 L Sodium Potassium Chloride Carbon Dioxide BUN Creatinine Glucose POC Glucose 184 H 194 H Lactic Acid Calcium Phosphorus Magnesium AST ALT Alkaline Phosphatase C-Reactive Protein Total Protein Albumin Triglycerides Ur Specific [place] Urine Creatinine Crossmatch 07/03/21 07/03/21 07/03/21 09:47 10:44 11:24 WBC RBC 3.01 L Hgb 8.3 L Hct 24.3 L MCV MCH RDW 21.7 H Plt Count Lymph % (Auto) 8.4 L [place] % (Auto) Lymph # (Auto) 0.8 L [place] # (Auto) Seg Neutrophils % 80.6 H Seg Neuts % (Manual) Lymphocytes % (Manual) Monocytes % (Manual) Basophils % (Manual) Seg Neutrophils # Seg Neutrophils # Man Lymphocytes # (Manual) Monocytes # (Manual) PT INR APTT Fibrinogen D-Dimer ABG pH POC ABG pCO2 POC ABG pO2 ABG pO2 ABG HCO3 ABG O2 Saturation ABG Base Excess ABG Hemoglobin ABG Oxyhemoglobin Oxyhemoglobin Sodium Potassium 3.0 L Chloride Carbon Dioxide BUN Creatinine Glucose 200 H POC Glucose 180 H Lactic Acid Calcium 8.3 L Phosphorus Magnesium AST ALT Alkaline Phosphatase C-Reactive Protein Total Protein Albumin Triglycerides Ur Specific [place] Urine Creatinine Crossmatch 07/03/21 07/03/21 07/03/21 16:34 22:14 22:15 WBC RBC Hgb Hct MCV MCH RDW Plt Count Lymph % (Auto) [place] % (Auto) Lymph # (Auto) [place] # (Auto) Seg Neutrophils % Seg Neuts % (Manual) Lymphocytes % (Manual) Monocytes % (Manual) Basophils % (Manual) Seg Neutrophils # Seg Neutrophils # Man Lymphocytes # (Manual) Monocytes # (Manual) PT INR APTT Fibrinogen D-Dimer ABG pH POC ABG pCO2 POC ABG pO2 ABG pO2 ABG HCO3 ABG O2 Saturation ABG Base Excess ABG Hemoglobin ABG Oxyhemoglobin Oxyhemoglobin Sodium Potassium Chloride Carbon Dioxide BUN Creatinine Glucose POC Glucose 165 H 174 H 180 H Lactic Acid Calcium Phosphorus Magnesium AST ALT Alkaline Phosphatase C-Reactive Protein Total Protein Albumin Triglycerides Ur Specific [place] Urine Creatinine Crossmatch 07/04/21 07/04/21 07/04/21 00:28 01:44 05:07 WBC RBC Hgb Hct MCV MCH RDW Plt Count Lymph % (Auto) [place] % (Auto) Lymph # (Auto) [place] # (Auto) Seg Neutrophils % Seg Neuts % (Manual) Lymphocytes % (Manual) Monocytes % (Manual) Basophils % (Manual) Seg Neutrophils # Seg Neutrophils # Man Lymphocytes # (Manual) Monocytes # (Manual) PT INR APTT Fibrinogen D-Dimer ABG pH POC ABG pCO2 POC ABG pO2 ABG pO2 107.7 H ABG HCO3 26.7 H ABG O2 Saturation ABG Base Excess ABG Hemoglobin 7.5 L ABG Oxyhemoglobin Oxyhemoglobin Sodium Potassium Chloride Carbon Dioxide BUN Creatinine Glucose POC Glucose 246 H 179 H Lactic Acid Calcium Phosphorus Magnesium AST ALT Alkaline Phosphatase C-Reactive Protein Total Protein Albumin Triglycerides Ur Specific [place] Urine Creatinine Crossmatch 07/04/21 07/04/21 07/04/21 05:13 05:13 10:52 WBC RBC 3.12 L Hgb 8.5 L Hct 25.2 L MCV MCH 27 L RDW 21.3 H Plt Count Lymph % (Auto) 6.1 L [place] % (Auto) Lymph # (Auto) 0.6 L [place] # (Auto) Seg Neutrophils % 85.0 H Seg Neuts % (Manual) Lymphocytes % (Manual) Monocytes % (Manual) Basophils % (Manual) Seg Neutrophils # 8.0 H Seg Neutrophils # Man Lymphocytes # (Manual) Monocytes # (Manual) PT INR APTT Fibrinogen D-Dimer ABG pH POC ABG pCO2 POC ABG pO2 ABG pO2 ABG HCO3 ABG O2 Saturation ABG Base Excess ABG Hemoglobin ABG Oxyhemoglobin Oxyhemoglobin Sodium Potassium 3.4 L Chloride Carbon Dioxide BUN Creatinine Glucose 205 H POC Glucose 146 H Lactic Acid Calcium Phosphorus Magnesium AST ALT Alkaline Phosphatase C-Reactive Protein Total Protein Albumin Triglycerides Ur Specific [place] Urine Creatinine Crossmatch 07/04/21 07/04/21 07/05/21 16:22 23:52 04:38 WBC RBC Hgb Hct MCV MCH RDW Plt Count Lymph % (Auto) [place] % (Auto) Lymph # (Auto) [place] # (Auto) Seg Neutrophils % Seg Neuts % (Manual) Lymphocytes % (Manual) Monocytes % (Manual) Basophils % (Manual) Seg Neutrophils # Seg Neutrophils # Man Lymphocytes # (Manual) Monocytes # (Manual) PT INR APTT Fibrinogen D-Dimer ABG pH POC ABG pCO2 POC ABG pO2 ABG pO2 ABG HCO3 ABG O2 Saturation ABG Base Excess ABG Hemoglobin ABG Oxyhemoglobin Oxyhemoglobin Sodium Potassium 3.0 L Chloride Carbon Dioxide BUN 18 H Creatinine Glucose 174 H POC Glucose 154 H 193 H Lactic Acid Calcium Phosphorus 2.20 L Magnesium AST ALT Alkaline Phosphatase C-Reactive Protein Total Protein Albumin Triglycerides Ur Specific [place] Urine Creatinine Crossmatch 07/05/21 07/05/21 07/05/21 04:38 05:15 12:35 WBC RBC 2.95 L Hgb 7.8 L Hct 23.9 L MCV MCH 27 L RDW 21.0 H Plt Count Lymph % (Auto) [place] % (Auto) Lymph # (Auto) [place] # (Auto) Seg Neutrophils % Seg Neuts % (Manual) Lymphocytes % (Manual) Monocytes % (Manual) Basophils % (Manual) Seg Neutrophils # Seg Neutrophils # Man Lymphocytes # (Manual) Monocytes # (Manual) PT INR APTT Fibrinogen D-Dimer ABG pH POC ABG pCO2 POC ABG pO2 ABG pO2 ABG HCO3 ABG O2 Saturation ABG Base Excess ABG Hemoglobin ABG Oxyhemoglobin Oxyhemoglobin Sodium Potassium Chloride Carbon Dioxide BUN Creatinine Glucose POC Glucose 163 H 121 H Lactic Acid Calcium Phosphorus Magnesium AST ALT Alkaline Phosphatase C-Reactive Protein Total Protein Albumin Triglycerides Ur Specific [place] Urine Creatinine Crossmatch 07/05/21 07/05/21 07/05/21 18:27 21:05 23:11 WBC RBC Hgb Hct MCV MCH RDW Plt Count Lymph % (Auto) [place] % (Auto) Lymph # (Auto) [place] # (Auto) Seg Neutrophils % Seg Neuts % (Manual) Lymphocytes % (Manual) Monocytes % (Manual) Basophils % (Manual) Seg Neutrophils # Seg Neutrophils # Man Lymphocytes # (Manual) Monocytes # (Manual) PT INR APTT Fibrinogen D-Dimer ABG pH POC ABG pCO2 POC ABG pO2 ABG pO2 ABG HCO3 ABG O2 Saturation ABG Base Excess ABG Hemoglobin ABG Oxyhemoglobin Oxyhemoglobin Sodium Potassium Chloride Carbon Dioxide BUN Creatinine Glucose POC Glucose 183 H 170 H 184 H Lactic Acid Calcium Phosphorus Magnesium AST ALT Alkaline Phosphatase C-Reactive Protein Total Protein Albumin Triglycerides Ur Specific [place] Urine Creatinine Crossmatch 07/06/21 07/06/21 07/06/21 04:39 05:13 12:12 WBC RBC Hgb Hct MCV MCH RDW Plt Count Lymph % (Auto) [place] % (Auto) Lymph # (Auto) [place] # (Auto) Seg Neutrophils % Seg Neuts % (Manual) Lymphocytes % (Manual) Monocytes % (Manual) Basophils % (Manual) Seg Neutrophils # Seg Neutrophils # Man Lymphocytes # (Manual) Monocytes # (Manual) PT INR APTT Fibrinogen D-Dimer ABG pH POC ABG pCO2 POC ABG pO2 ABG pO2 ABG HCO3 ABG O2 Saturation ABG Base Excess ABG Hemoglobin ABG Oxyhemoglobin Oxyhemoglobin Sodium Potassium 3.4 L Chloride Carbon Dioxide BUN Creatinine Glucose 180 H POC Glucose 183 H 153 H Lactic Acid Calcium Phosphorus Magnesium AST ALT Alkaline Phosphatase C-Reactive Protein Total Protein Albumin Triglycerides Ur Specific [place] Urine Creatinine Crossmatch 07/06/21 07/06/21 07/07/21 17:30 21:44 00:22 WBC RBC Hgb Hct MCV MCH RDW Plt Count Lymph % (Auto) [place] % (Auto) Lymph # (Auto) [place] # (Auto) Seg Neutrophils % Seg Neuts % (Manual) Lymphocytes % (Manual) Monocytes % (Manual) Basophils % (Manual) Seg Neutrophils # Seg Neutrophils # Man Lymphocytes # (Manual) Monocytes # (Manual) PT INR APTT Fibrinogen D-Dimer ABG pH POC ABG pCO2 POC ABG pO2 ABG pO2 ABG HCO3 ABG O2 Saturation ABG Base Excess ABG Hemoglobin ABG Oxyhemoglobin Oxyhemoglobin Sodium Potassium Chloride Carbon Dioxide BUN Creatinine Glucose POC Glucose 166 H 155 H 188 H Lactic Acid Calcium Phosphorus Magnesium AST ALT Alkaline Phosphatase C-Reactive Protein Total Protein Albumin Triglycerides Ur Specific [place] Urine Creatinine Crossmatch 07/07/21 07/07/21 07/07/21 04:10 05:48 07:39 WBC RBC Hgb Hct MCV MCH RDW Plt Count Lymph % (Auto) [place] % (Auto) Lymph # (Auto) [place] # (Auto) Seg Neutrophils % Seg Neuts % (Manual) Lymphocytes % (Manual) Monocytes % (Manual) Basophils % (Manual) Seg Neutrophils # Seg Neutrophils # Man Lymphocytes # (Manual) Monocytes # (Manual) PT INR APTT Fibrinogen D-Dimer ABG pH POC ABG pCO2 POC ABG pO2 ABG pO2 ABG HCO3 ABG O2 Saturation ABG Base Excess ABG Hemoglobin ABG Oxyhemoglobin Oxyhemoglobin Sodium Potassium 3.1 L Chloride Carbon Dioxide BUN Creatinine Glucose 138 H POC Glucose 141 H 147 H Lactic Acid Calcium Phosphorus 2.40 L Magnesium AST ALT Alkaline Phosphatase C-Reactive Protein Total Protein Albumin Triglycerides Ur Specific [place] Urine Creatinine Crossmatch 07/07/21 07/07/21 07/07/21 11:17 16:06 23:58 WBC RBC Hgb Hct MCV MCH RDW Plt Count Lymph % (Auto) [place] % (Auto) Lymph # (Auto) [place] # (Auto) Seg Neutrophils % Seg Neuts % (Manual) Lymphocytes % (Manual) Monocytes % (Manual) Basophils % (Manual) Seg Neutrophils # Seg Neutrophils # Man Lymphocytes # (Manual) Monocytes # (Manual) PT INR APTT Fibrinogen D-Dimer ABG pH POC ABG pCO2 POC ABG pO2 ABG pO2 ABG HCO3 ABG O2 Saturation ABG Base Excess ABG Hemoglobin ABG Oxyhemoglobin Oxyhemoglobin Sodium Potassium Chloride Carbon Dioxide BUN Creatinine Glucose POC Glucose 161 H 173 H 198 H Lactic Acid Calcium Phosphorus Magnesium AST ALT Alkaline Phosphatase C-Reactive Protein Total Protein Albumin Triglycerides Ur Specific [place] Urine Creatinine Crossmatch 07/08/21 07/08/21 07/08/21 04:20 04:20 06:12 WBC RBC 3.16 L Hgb 8.3 L Hct 25.1 L MCV MCH 26 L RDW 21.0 H Plt Count Lymph % (Auto) [place] % (Auto) Lymph # (Auto) [place] # (Auto) Seg Neutrophils % Seg Neuts % (Manual) Lymphocytes % (Manual) Monocytes % (Manual) Basophils % (Manual) Seg Neutrophils # Seg Neutrophils # Man Lymphocytes # (Manual) Monocytes # (Manual) PT INR APTT Fibrinogen D-Dimer ABG pH POC ABG pCO2 POC ABG pO2 ABG pO2 ABG HCO3 ABG O2 Saturation ABG Base Excess ABG Hemoglobin ABG Oxyhemoglobin Oxyhemoglobin Sodium Potassium Chloride Carbon Dioxide BUN Creatinine Glucose 183 H POC Glucose 189 H Lactic Acid Calcium Phosphorus Magnesium AST ALT Alkaline Phosphatase C-Reactive Protein Total Protein Albumin Triglycerides Ur Specific [place] Urine Creatinine Crossmatch 07/08/21 07/08/21 07/08/21 11:33 18:04 21:42 WBC RBC Hgb Hct MCV MCH RDW Plt Count Lymph % (Auto) [place] % (Auto) Lymph # (Auto) [place] # (Auto) Seg Neutrophils % Seg Neuts % (Manual) Lymphocytes % (Manual) Monocytes % (Manual) Basophils % (Manual) Seg Neutrophils # Seg Neutrophils # Man Lymphocytes # (Manual) Monocytes # (Manual) PT INR APTT Fibrinogen D-Dimer ABG pH POC ABG pCO2 POC ABG pO2 ABG pO2 ABG HCO3 ABG O2 Saturation ABG Base Excess ABG Hemoglobin ABG Oxyhemoglobin Oxyhemoglobin Sodium Potassium Chloride Carbon Dioxide BUN Creatinine Glucose POC Glucose 161 H 128 H 160 H Lactic Acid Calcium Phosphorus Magnesium AST ALT Alkaline Phosphatase C-Reactive Protein Total Protein Albumin Triglycerides Ur Specific [place] Urine Creatinine Crossmatch 07/09/21 07/09/21 07/09/21 06:03 06:10 06:10 WBC RBC 2.96 L Hgb 7.8 L Hct 23.5 L MCV MCH 27 L RDW 20.9 H Plt Count Lymph % (Auto) [place] % (Auto) Lymph # (Auto) [place] # (Auto) Seg Neutrophils % Seg Neuts % (Manual) Lymphocytes % (Manual) Monocytes % (Manual) Basophils % (Manual) Seg Neutrophils # Seg Neutrophils # Man Lymphocytes # (Manual) Monocytes # (Manual) PT INR APTT Fibrinogen D-Dimer ABG pH POC ABG pCO2 POC ABG pO2 ABG pO2 ABG HCO3 ABG O2 Saturation ABG Base Excess ABG Hemoglobin ABG Oxyhemoglobin Oxyhemoglobin Sodium Potassium Chloride Carbon Dioxide BUN Creatinine Glucose 168 H POC Glucose 174 H Lactic Acid Calcium 8.2 L Phosphorus Magnesium AST ALT Alkaline Phosphatase C-Reactive Protein Total Protein Albumin Triglycerides Ur Specific [place] Urine Creatinine Crossmatch 07/09/21 07/09/21 07/09/21 11:45 18:45 21:33 WBC RBC Hgb Hct MCV MCH RDW Plt Count Lymph % (Auto) [place] % (Auto) Lymph # (Auto) [place] # (Auto) Seg Neutrophils % Seg Neuts % (Manual) Lymphocytes % (Manual) Monocytes % (Manual) Basophils % (Manual) Seg Neutrophils # Seg Neutrophils # Man Lymphocytes # (Manual) Monocytes # (Manual) PT INR APTT Fibrinogen D-Dimer ABG pH POC ABG pCO2 POC ABG pO2 ABG pO2 ABG HCO3 ABG O2 Saturation ABG Base Excess ABG Hemoglobin ABG Oxyhemoglobin Oxyhemoglobin Sodium Potassium Chloride Carbon Dioxide BUN Creatinine Glucose POC Glucose 148 H 187 H 156 H Lactic Acid Calcium Phosphorus Magnesium AST ALT Alkaline Phosphatase C-Reactive Protein Total Protein Albumin Triglycerides Ur Specific [place] Urine Creatinine Crossmatch 07/10/21 07/10/21 07/10/21 00:01 05:24 11:12 WBC RBC Hgb Hct MCV MCH RDW Plt Count Lymph % (Auto) [place] % (Auto) Lymph # (Auto) [place] # (Auto) Seg Neutrophils % Seg Neuts % (Manual) Lymphocytes % (Manual) Monocytes % (Manual) Basophils % (Manual) Seg Neutrophils # Seg Neutrophils # Man Lymphocytes # (Manual) Monocytes # (Manual) PT INR APTT Fibrinogen D-Dimer ABG pH POC ABG pCO2 POC ABG pO2 ABG pO2 ABG HCO3 ABG O2 Saturation ABG Base Excess ABG Hemoglobin ABG Oxyhemoglobin Oxyhemoglobin Sodium Potassium Chloride Carbon Dioxide BUN Creatinine Glucose POC Glucose 191 H 203 H 174 H Lactic Acid Calcium Phosphorus Magnesium AST ALT Alkaline Phosphatase C-Reactive Protein Total Protein Albumin Triglycerides Ur Specific [place] Urine Creatinine Crossmatch 07/10/21 07/10/21 07/10/21 15:56 20:58 23:54 WBC RBC Hgb Hct MCV MCH RDW Plt Count Lymph % (Auto) [place] % (Auto) Lymph # (Auto) [place] # (Auto) Seg Neutrophils % Seg Neuts % (Manual) Lymphocytes % (Manual) Monocytes % (Manual) Basophils % (Manual) Seg Neutrophils # Seg Neutrophils # Man Lymphocytes # (Manual) Monocytes # (Manual) PT INR APTT Fibrinogen D-Dimer ABG pH POC ABG pCO2 POC ABG pO2 ABG pO2 ABG HCO3 ABG O2 Saturation ABG Base Excess ABG Hemoglobin ABG Oxyhemoglobin Oxyhemoglobin Sodium Potassium Chloride Carbon Dioxide BUN Creatinine Glucose POC Glucose 182 H 165 H 196 H Lactic Acid Calcium Phosphorus Magnesium AST ALT Alkaline Phosphatase C-Reactive Protein Total Protein Albumin Triglycerides Ur Specific [place] Urine Creatinine Crossmatch 07/11/21 07/11/21 07/11/21 04:04 04:04 05:34 WBC RBC 3.50 L Hgb 8.7 L Hct 27.6 L MCV MCH 25 L RDW 20.6 H Plt Count Lymph % (Auto) [place] % (Auto) Lymph # (Auto) [place] # (Auto) Seg Neutrophils % Seg Neuts % (Manual) Lymphocytes % (Manual) Monocytes % (Manual) Basophils % (Manual) 2.0 H Seg Neutrophils # Seg Neutrophils # Man Lymphocytes # (Manual) 0.8 L Monocytes # (Manual) PT INR APTT Fibrinogen D-Dimer ABG pH POC ABG pCO2 POC ABG pO2 ABG pO2 ABG HCO3 ABG O2 Saturation ABG Base Excess ABG Hemoglobin ABG Oxyhemoglobin Oxyhemoglobin Sodium Potassium 3.3 L Chloride Carbon Dioxide BUN Creatinine Glucose 199 H POC Glucose 191 H Lactic Acid Calcium Phosphorus Magnesium AST ALT Alkaline Phosphatase C-Reactive Protein Total Protein Albumin Triglycerides Ur Specific [place] Urine Creatinine Crossmatch 07/11/21 07/11/21 07/11/21 11:49 15:57 21:33 WBC RBC Hgb Hct MCV MCH RDW Plt Count Lymph % (Auto) [place] % (Auto) Lymph # (Auto) [place] # (Auto) Seg Neutrophils % Seg Neuts % (Manual) Lymphocytes % (Manual) Monocytes % (Manual) Basophils % (Manual) Seg Neutrophils # Seg Neutrophils # Man Lymphocytes # (Manual) Monocytes # (Manual) PT INR APTT Fibrinogen D-Dimer ABG pH POC ABG pCO2 POC ABG pO2 ABG pO2 ABG HCO3 ABG O2 Saturation ABG Base Excess ABG Hemoglobin ABG Oxyhemoglobin Oxyhemoglobin Sodium Potassium Chloride Carbon Dioxide BUN Creatinine Glucose POC Glucose 195 H 207 H 192 H Lactic Acid Calcium Phosphorus Magnesium AST ALT Alkaline Phosphatase C-Reactive Protein Total Protein Albumin Triglycerides Ur Specific [place] Urine Creatinine Crossmatch 07/12/21 07/12/21 07/12/21 00:04 05:54 11:53 WBC RBC Hgb Hct MCV MCH RDW Plt Count Lymph % (Auto) [place] % (Auto) Lymph # (Auto) [place] # (Auto) Seg Neutrophils % Seg Neuts % (Manual) Lymphocytes % (Manual) Monocytes % (Manual) Basophils % (Manual) Seg Neutrophils # Seg Neutrophils # Man Lymphocytes # (Manual) Monocytes # (Manual) PT INR APTT Fibrinogen D-Dimer ABG pH POC ABG pCO2 POC ABG pO2 ABG pO2 ABG HCO3 ABG O2 Saturation ABG Base Excess ABG Hemoglobin ABG Oxyhemoglobin Oxyhemoglobin Sodium Potassium Chloride Carbon Dioxide BUN Creatinine Glucose POC Glucose 189 H 220 H 209 H Lactic Acid Calcium Phosphorus Magnesium AST ALT Alkaline Phosphatase C-Reactive Protein Total Protein Albumin Triglycerides Ur Specific [place] Urine Creatinine Crossmatch
--- NOTE | 2021-07-12 13:57 | Progress Note ---
Assessment and Plan Assessment and plan: Hospital Course: 07/01: Transfer from ICU on 06/30. Patient was stable with a trach and T-piece on 5 L. Tolerating tube feeds. 07/02: Patient remains on T-piece with trach in place. On 5 L of O2. She is alert and responds appropriately but not well due to trach tube. Tolerating tube feeds. Appears comfortable. No complaints. No new events reported. Case management reports patient with plans for LTAC placement. 07/03: Patient remains on T-piece with trach in place. On 5 L of O2. Patient tolerating tube feeds. We will check CT of head, neck and chest per pulmonary and general surgery recommendations based on CBC this morning. If leukocytosis persists we will proceed with studies. Patient remains afebrile today. 07/04: s/p X1 dose of IV lasix, patient is now stable on the T-piece via trach at 28% and 5L. Patient remains afebrile, leukocytosis improved, and CXR wiht no significant change. PRN Seymour added for pain management. Electrolytes repleted 07/05: Remains stable on T-piece. Complaint of lack of sleep and tiredness this am, Trazadone and melatonin added for sleep. Continue PT- increase mobility and possibly OOB to chair today. Continue pain management. Electrolytes repleted. 07/06: Rested overnight. And continue to tolerate T-piece at 28% and 5L. Continue trazadone and melatonin at night for sleep and pain control with PRN analgesia. Discussed possibility of down sizing the trach to an 8 Shiley with General Surgery. Per Surgery downsizing would not be easy nor safe at this time. Plan to order #10 PSMV instead. Case management to arrange possible placement SNF vs subacute rehab. 07/07: JEREMIAS overnight. New report of BLE pain and swelling, per patient was on gabapentin and smooth muscle relaxers at home. BLE did appear swollen with palpable pedal pulses. Will get BLE doppler, resume gabapentin, and continue PRN analgesic for pain control. Continue mobility/strenght and conditioning with PT. Electrolytes repleted, repeat labs in the am. 07/08: Patient scheduled to have a downsize of Shiley today in the OR with surgery, surgery also requested neurology consult for MS work-up. Lidocaine patches to bilateral lower extremities discontinued. 07/09: Transfer to [facility]. s/p trach downsize by surgery. Will need aggressive PT/OT/ST. Possible eval by ST for MPV. Placement now of concern. Will continue coordination with CM. Neuro: doubt MG. suspects myopathy likely ICU acquired from prolonged immobilization. Again she will require aggressive PT rehab. 07/10: Appears volume overloaded. Lasix 40 mg IV x 2 doses ordered. Will need continued aggressive PT. ST eval for PSMV (still has not arrived per notes). 07/11: CT brain negative. MRI appears to have been cancelled, unclear why. Nonetheless doubt primary neurological etiology for weakness...suspect ICU acquired weakness. Continue discharge planning, rehab/snf is likely disposition. Will continue to work along side CM. 07/12: Awaiting placement for snf. Assessment and plan: This is a 76-year-old female with HTN, Coumadin use, dental caries, PVD s/p stenting to right leg, DM, arthritis, depression, gout and ? Pulmonary hypertension admitted with Jeremiah's angina s/p emergent cric with bleeding, right sided pneumothorax, supratherapeutic INR, hypernatremia, hyperchloremia, severe metabolic acidosis, hyperglycemia and hypocalcemia Neuro: Acute pain, ICU acquired weakness/myopathy, r/o myasthenia gravis, h/o depression, arthritis -prn fent pushes -Avoid delirium -Reorientation as needed -Maintain sleep-wake cycle -PT consulted; recommends LTAC -Neurology consulted, appreciate recommendations -B12, A1c, CK, TSH pending -MRI brain to rule out bleeding and old watershed infarct -gabapentin Cardiac: S/p cardiac arrest, h/o htn, PVD s/p stenting Right leg -06/14 cardiac arrest with ROSC -S/p vasopressor support with Levophed and Fabian-Synephrine -Blood pressure monitoring per protocol -Antihypertensive regimen: Hydralazine 100 mg every 8 -06/13 Echocardiogram EF 65-70% Respiratory: Acute hypoxic respiratory failure, right pneumothorax -CCM consulted, appreciate recommendations -S/p emergent cricothyroidectomy with surgery with 8.00 ETT -s/p trach 06/19 with surgery s/p #10 Shiley -07/08 Shiley downsized to #8 -T-piece trials started 06/26 -ST: Unable to tolerate Passy-Ann valve on 06/28 but has since tolerated 10 min -misplaced PSMV during transport and awaiting replacement -s/p Right chest tube removed 06/29 -06/13 bronchoscopy showed possible blood clot in left lung which may be acting as mucous plug however it was left in place due to possible bleeding inside lung if removed. -CXR post cardiac arrest shows clearance of mucous plug -06/16 CT chest shows moderate right pneumothorax with collapse of right upper lobe, right thoracostomy tube terminates at the collapsed right upper lobe, bilateral bronchus opacities compatible with infectious/inflammatory etiology, bilateral small pleural effusion, extensive subcutaneous air, small fluid collection in the anterior mediastinum is nonspecific -VAP bundle -SPO2 monitoring GI: Protein calorie malnutrition -24 hours -1545 mL -PPI -BR: senna, colace -s/p TPN -Nutrition consult for tube feeding -S/p PEG : Urinary retention, acute kidney injury possibly secondary to vasomotor nephropathy (resolved) -Strict intake and output -Renally dose medications -Avoid nephrotoxic medications -Daily weights -Consider nephrology consult if worsens -S/p 7 L LR bolus -Replete potassium -Lujan catheter replaced due to urinary retention ID: 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 dental caries -CT neck with contrast showed a significant right floor of mild swelling with extension into the submandibular and submental spaces, significant thickening and inflammation involving the right pharyngeal wall, with the parapharyngeal and retropharyngeal spaces at the level of the thyroid cartilage, epiglottis significantly swollen and so are the aryepiglottic folds resulting in significant airway narrowing at this level, no lymphadenopathy, symmetric submandibular and parathyroid glands, S few scattered caries but no periapical lucencies, nonspecific calcification along the right lateral oropharynx, no definite stone seen within the territory of the submandibular gland ducts, no suspicious rashes lesion -Infectious disease and general surgery consulted, appreciate recommendations -s/p cricothyroidectomy -Will follow surgery to direction and treatment of injury -Per surgery may have mucosal injury -Intra-Op findings include post pharyngeal swelling and bruising -s/p Solu-Medrol -Per ID: if leucocytosis persists after being off steroids, obtain CT neck with IV contrast to rule out any abscess -Antibiotic therapy Zosyn x 21 days completed -COVID-19 PCR negative -f/u blood culture -Monitor WBC and temperature curve -s/p 5L normal saline bolus in ED, 7 L LR bolus in ICU Heme: Coagulopathy (resolved), supratherapeutic INR (resolved), acute blood loss anemia (resolved), possible component of hemorrhagic shock (resolved), leukocytosis (resolved) -Patient is on Coumadin at home -S/p 5 FFP, 8 PRBC, vitamin K x3 -Trend CBC -Presented with H/H of 10.3/34.6 and decreased to 6.7/22.4 -INR 8.18-> 4.55-> 2.1-> 1.23-> 1.16-> 1.31 -Transfuse hemoglobin less than 7 -Lovenox subq (prophylactic) -Monitor for signs of bleeding -SCDs to BLE while in bed Endo: h/o DM, gout -S/p Lantus 25 units x 1 -Lantus subcu, titrate as needed -Avoid hypoglycemia -SSI -Accu-Cheks q. 6hr The high probability of a clinically significant, sudden or life threatening deterioration of the [multi] system(s) required my full and direct attention, intervention and personal management. The aggregate critical care time was [60] minutes. This time is in addition to time spent performing reported procedures but includes the following: [x] Data Review and interpretation [x] Patient assessment and monitoring of vital signs [x] Documentation [x] Medication orders and management Disposition Plan: IMCU Total Time Spent with Patient (Minutes): 60 History Interval history: No acute complaints resting comfortably. Hospitalist Physical - Physical exam Narrative exam: - General Apperance Constitutional: comfortable - EENT EENT: PERRL, mucous membranes moist - Respiratory Respiratory: lungs clear, rhonchi - Cardiovascular Cardiovascular: regular rate, normal S1, normal S2 Extremities: no peripheral edema bilat, no clubbing, cyanosis - Gastrointestinal Gastrointestinal: normoactive bowel sounds - Integumentary Integumentary: normal - Neurologic Cranial nerve examination: PERRL, EOMI, intact Speech examination: other (tracheostomy tube, no aphasia) Detailed motor examination: other (Bilateral proximal motor weakness upper> Lower, suppressed reflexes, no cranial weakness is noted neck muscles are intact) Motor examination - right side: 05/08: biceps - Constitutional Vitals: Temp Pulse Resp BP Pulse Ox 98.6 F 90 16 121/76 97 07/12/21 12:00 07/12/21 13:00 07/12/21 13:00 07/12/21 13:00 07/12/21 13:00 General appearance: Present: no acute distress, obese (Morbidly obese), other (On T-piece with trach in place.) HEART Score - HEART Score Troponin: Troponin T < 0.010 ng/mL (0.00-0.029) 06/11/21 23:21 Results - Labs CBC & Chem 7: 07/11/21 04:04 07/11/21 04:04 Labs: Laboratory Last Values WBC 5.5 K/mm3 (4.5-11.0) 07/11/21 04:04 RBC 3.50 M/mm3 (3.65-5.03) L 07/11/21 04:04 Hgb 8.7 gm/dl (10.1-14.3) L 07/11/21 04:04 Hct 27.6 % (30.3-42.9) L 07/11/21 04:04 MCV 79 fl (79-97) 07/11/21 04:04 MCH 25 pg (28-32) L 07/11/21 04:04 MCHC 32 % (30-34) 07/11/21 04:04 RDW 20.6 % (13.2-15.2) H 07/11/21 04:04 Plt Count 355 K/mm3 (140-440) 07/11/21 04:04 Lymph % (Auto) 6.1 % (13.4-35.0) L 07/04/21 05:13 [place] % (Auto) [employer] 07/11/21 04:04 Eos % (Auto) 1.8 % (0.0-4.3) 07/04/21 05:13 Baso % (Auto) 0.5 % (0.0-1.8) 07/04/21 05:13 Lymph # (Auto) 0.6 K/mm3 (1.2-5.4) L 07/04/21 05:13 [place] # (Auto) 0.6 K/mm3 (0.0-0.8) 07/04/21 05:13 Eos # (Auto) 0.2 K/mm3 (0.0-0.4) 07/04/21 05:13 Baso # (Auto) 0.0 K/mm3 (0.0-0.1) 07/04/21 05:13 Add Manual Diff Complete 07/11/21 04:04 Total Counted 100 07/11/21 04:04 Seg Neutrophils % 85.0 % (40.0-70.0) H 07/04/21 05:13 Seg Neuts % (Manual) 66.0 % (40.0-70.0) 07/11/21 04:04 Band Neutrophils % 3.0 % 07/11/21 04:04 Lymphocytes % (Manual) 15.0 % (13.4-35.0) 07/11/21 04:04 Reactive Lymphs % (Man) 0 % 07/11/21 04:04 Monocytes % (Manual) 6.0 % (0.0-7.3) 07/11/21 04:04 Eosinophils % (Manual) 3.0 % (0.0-4.3) 07/11/21 04:04 Basophils % (Manual) 2.0 % (0.0-1.8) H 07/11/21 04:04 Metamyelocytes % 4.0 % 07/11/21 04:04 Myelocytes % 1.0 % 07/11/21 04:04 Promyelocytes % 0 % 07/11/21 04:04 Blast Cells % 0 % 07/11/21 04:04 Nucleated RBC % Not Reportable 07/11/21 04:04 Seg Neutrophils # 8.0 K/mm3 (1.8-7.7) H 07/04/21 05:13 Seg Neutrophils # Man 3.6 K/mm3 (1.8-7.7) 07/11/21 04:04 Band Neutrophils # 0.2 K/mm3 07/11/21 04:04 Lymphocytes # (Manual) 0.8 K/mm3 (1.2-5.4) L 07/11/21 04:04 Abs React Lymphs (Man) 0.0 K/mm3 07/11/21 04:04 Monocytes # (Manual) 0.3 K/mm3 (0.0-0.8) 07/11/21 04:04 Eosinophils # (Manual) 0.2 K/mm3 (0.0-0.4) 07/11/21 04:04 Basophils # (Manual) 0.1 K/mm3 (0.0-0.1) 07/11/21 04:04 Metamyelocytes # 0.2 K/mm3 07/11/21 04:04 Myelocytes # 0.1 K/mm3 07/11/21 04:04 Promyelocytes # 0.0 K/mm3 07/11/21 04:04 Blast Cells # 0.0 K/mm3 07/11/21 04:04 WBC Morphology Not Reportable 07/11/21 04:04 Hypersegmented Neuts Not Reportable 07/11/21 04:04 Hyposegmented Neuts Not Reportable 07/11/21 04:04 Hypogranular Neuts Not Reportable 07/11/21 04:04 Smudge Cells Not Reportable 07/11/21 04:04 Toxic Granulation Not Reportable 07/11/21 04:04 Toxic Vacuolation Not Reportable 07/11/21 04:04 Dohle Bodies Not Reportable 07/11/21 04:04 Pelger-Huet Anomaly Not Reportable 07/11/21 04:04 Dennis Rods Not Reportable 07/11/21 04:04 Platelet Estimate Consistent w auto 07/11/21 04:04 Clumped Platelets Not Reportable 07/11/21 04:04 Plt Clumps, EDTA Not Reportable 07/11/21 04:04 Large Platelets Not Reportable 07/11/21 04:04 Giant Platelets Not Reportable 07/11/21 04:04 Platelet Satelliting Not Reportable 07/11/21 04:04 Plt Morphology Comment Not Reportable 07/11/21 04:04 RBC Morphology Not Reportable 07/11/21 04:04 Dimorphic RBCs Not Reportable 07/11/21 04:04 Polychromasia Not Reportable 07/11/21 04:04 Hypochromasia 2+ 07/11/21 04:04 Poikilocytosis Not Reportable 07/11/21 04:04 Anisocytosis 2+ 07/11/21 04:04 Microcytosis Not Reportable 07/11/21 04:04 Macrocytosis Not Reportable 07/11/21 04:04 Spherocytes 1+ 07/11/21 04:04 Pappenheimer Bodies Not Reportable 07/11/21 04:04 Sickle Cells Not Reportable 07/11/21 04:04 Target Cells 2+ 07/11/21 04:04 Tear Drop Cells 1+ 07/11/21 04:04 Ovalocytes 1+ 07/11/21 04:04 Stomatocytes Few 06/12/21 01:45 Helmet Cells Not Reportable 07/11/21 04:04 [place] Bodies Not Reportable 07/11/21 04:04 [place] Rings Not Reportable 07/11/21 04:04 [place] Cells Not Reportable 07/11/21 04:04 Bite Cells Not Reportable 07/11/21 04:04 Crenated Cell Not Reportable 07/11/21 04:04 Elliptocytes Not Reportable 07/11/21 04:04 Acanthocytes (Spur) Not Reportable 07/11/21 04:04 Rouleaux Not Reportable 07/11/21 04:04 Hemoglobin C Crystals Not Reportable 07/11/21 04:04 Schistocytes Rare 07/11/21 04:04 Malaria parasites Not Reportable 07/11/21 04:04 Edin Bodies Not Reportable 07/11/21 04:04 Hem Pathologist Commnt No 07/11/21 04:04 PT 18.3 Sec. (12.2-14.9) H 06/20/21 04:33 INR 1.37 (0.87-1.13) H 06/20/21 04:33 APTT 26.4 Sec. (24.2-36.6) 06/13/21 Unknown Fibrinogen 546 mg/dl (211-480) H 06/13/21 Unknown D-Dimer 1244.63 ng/mlDDU (0-234) H 06/13/21 Unknown ABG pH 7.448 pH Units (7.350-7.450) 07/04/21 01:44 POC ABG pCO2 25.6 mmHg (32.0-48.0) L 06/13/21 04:31 ABG pCO2 39.5 mm Hg 07/04/21 01:44 POC ABG pO2 138.8 mmHg (83-108) H 06/13/21 04:31 ABG pO2 107.7 mm Hg (80.0-90.0) H 07/04/21 01:44 POC ABG HCO3 21.4 06/13/21 04:31 ABG HCO3 26.7 mmol/L (20.0-26.0) H 07/04/21 01:44 ABG O2 Saturation 98.0 % (95.0-99.0) 07/04/21 01:44 ABG O2 Content 10.3 (0.0-44) 07/04/21 01:44 POC ABG Base Excess -0.7 06/13/21 04:31 ABG Base Excess 2.5 mmol/L (-2.0-3.0) 07/04/21 01:44 ABG Hemoglobin 7.5 gm/dl (12.0-16.0) L 07/04/21 01:44 ABG Oxyhemoglobin 98.1 (94-98) H 06/13/21 04:31 ABG Carboxyhemoglobin 1.6 % (0.0-5.0) 07/04/21 01:44 ABG Methemoglobin 0.6 % (0.0-1.5) 07/04/21 01:44 Oxyhemoglobin 95.9 % (95.0-99.0) 07/04/21 01:44 Carboxyhemoglobin 0.8 (0.5-1.5) 06/13/21 04:31 FiO2 35 % 07/04/21 01:44 FiO2 % 40.0 06/13/21 04:31 Sodium 139 mmol/L (137-145) 07/11/21 04:04 Potassium 3.3 mmol/L (3.6-5.0) L 07/11/21 04:04 Chloride 99.7 mmol/L (98-107) 07/11/21 04:04 Carbon Dioxide 27 mmol/L (22-30) 07/11/21 04:04 Anion Gap 16 mmol/L 07/11/21 04:04 BUN 15 mg/dL (7-17) 07/11/21 04:04 Creatinine 0.7 mg/dL (0.6-1.2) 07/11/21 04:04 Estimated GFR > 60 ml/min 07/11/21 04:04 BUN/Creatinine Ratio 21 % 07/11/21 04:04 Glucose 199 mg/dL (65-100) H 07/11/21 04:04 POC Glucose 209 mg/dL (70-105) H 07/12/21 11:53 Hemoglobin A1c 6.0 % (4-6) 07/11/21 04:04 Lactic Acid 5.30 mmol/L (0.7-2.0) H* 06/13/21 15:45 Calcium 8.5 mg/dL (8.4-10.2) 07/11/21 04:04 Phosphorus 3.70 mg/dL (2.5-4.5) D 07/08/21 04:20 Magnesium 1.90 mg/dL (1.7-2.3) 07/08/21 04:20 Total Bilirubin 0.40 mg/dL (0.1-1.2) 06/15/21 03:56 AST 64 units/L (5-40) H 06/15/21 03:56 ALT 106 units/L (7-56) H 06/15/21 03:56 Alkaline Phosphatase 55 units/L (35-129) 06/15/21 03:56 Troponin T < 0.010 ng/mL (0.00-0.029) 06/11/21 23:21 C-Reactive Protein 3.30 mg/dL (0.00-1.30) H 06/16/21 04:32 Total Protein 5.1 g/dL (6.3-8.2) L 06/15/21 03:56 Albumin 2.9 g/dL (3.9-5) L 06/15/21 03:56 Albumin/Globulin Ratio 1.3 % 06/15/21 03:56 Triglycerides 254 mg/dL (2-149) H 06/21/21 04:42 Vitamin B12 647.0 pg/mL (211-911) 07/08/21 15:36 TSH 1.050 mlU/mL (0.270-4.200) 07/08/21 15:36 Urine Color Yellow (Yellow) 06/12/21 17:00 Urine Turbidity Clear (Clear) 06/12/21 17:00 Urine pH 5.0 (5.0-7.0) 06/12/21 17:00 Ur Specific [place] 1.035 (1.003-1.030) H 06/12/21 17:00 Urine Protein 30 mg/dl mg/dL (Negative) 06/12/21 17:00 Urine Glucose (UA) 50 mg/dL (Negative) 06/12/21 17:00 Urine Ketones Tr mg/dL (Negative) 06/12/21 17:00 Urine Blood Neg (Negative) 06/12/21 17:00 Urine Nitrite Neg (Negative) 06/12/21 17:00 Urine Bilirubin Neg (Negative) 06/12/21 17:00 Urine Urobilinogen < 2.0 mg/dL (<2.0) 06/12/21 17:00 Ur Leukocyte Esterase Neg (Negative) 06/12/21 17:00 Urine WBC (Auto) < 1.0 /HPF (0.0-6.0) 06/12/21 17:00 Urine RBC (Auto) < 1.0 /HPF (0.0-6.0) 06/12/21 17:00 Urine Creatinine 81.1 mg/dL (0.1-20.0) H 06/15/21 10:40 Urine Sodium 42 mmol/L 06/15/21 10:40 Coronavirus (PCR) Negative (Negative) 06/12/21 09:50 Blood Type O POSITIVE 06/24/21 06:40 Antibody Screen Negative 06/24/21 06:40 Crossmatch See Detail 06/24/21 06:40 Lujan/IV: Voiding Method Indwelling Catheter Active Medications - Current Medications Current Medications: Generic Name Dose Route Start Last Admin Trade Name Freq PRN Reason Stop Dose Admin Hydrocodone Bitart/Acetaminophen 1 each 07/04/21 10:00 07/10/21 18:36 Hydrocodone/Acetaminophen 5-325 Mg Tab PO 1 each Q6H PRN Administration Pain, Moderate (4-6) Amlodipine Besylate 5 mg 06/23/21 10:00 07/12/21 09:34 Amlodipine 5 Mg Tab PO 5 mg QDAY JOLENE Administration Lipase/Protease/Amylase 1 each 06/19/21 19:20 Lipase 10,500/Protease 25,000/Amylase 43,750 (Units) Dr Melgar FEEDTUBE PRN PRN For Clogged Feeding Tube Atorvastatin Calcium 20 mg 06/22/21 22:00 07/11/21 21:36 Atorvastatin 20 Mg Tab PO 20 mg QHS JOLENE Administration Baclofen 10 mg 07/07/21 11:39 07/09/21 02:15 Baclofen 10 Mg Tab PO 10 mg BID PRN Administration Muscle pain Enoxaparin Sodium 40 mg 06/30/21 22:00 07/11/21 21:36 Enoxaparin 40 Mg/0.4 Ml Inj SUB-Q 40 mg QDAY@2200 [facility] Administration Protocol Famotidine 20 mg 06/24/21 22:00 07/12/21 09:35 Famotidine 20 Mg Tab FEEDTUBE 20 mg BID JOLENE Administration Gabapentin 100 mg 07/07/21 14:00 07/12/21 13:50 Gabapentin 100 Mg Cap PO 100 mg TID JOLENE Administration Hydralazine HCl 100 mg 06/22/21 19:00 07/12/21 13:50 Hydralazine 100 Mg Tab FEEDTUBE 100 mg Q8HR JOLENE Administration Hydromorphone HCl 0.5 mg 07/10/21 12:00 07/12/21 10:21 Hydromorphone 1 Mg/1 Ml Inj IV 0.5 mg Q4H PRN Administration Pain , Severe (7-10) Insulin Glargine 30 units 07/04/21 22:00 07/11/21 21:36 Insulin Glargine 100 Units/Ml SUB-Q 30 units QHS [facility] Administration Insulin Human Lispro 0 unit 06/12/21 12:00 07/12/21 13:51 Insulin Lispro 100 Unit/Ml SUB-Q 4 unit Q6HR [facility] Administration Protocol Labetalol HCl 10 mg 06/21/21 18:00 07/10/21 10:27 Labetalol 20 Mg/4 Ml Inj IV 10 mg Q4HR PRN Administration Hypertension Melatonin 5 mg 07/05/21 22:00 07/11/21 21:36 Melatonin 5 Mg Tab PO 5 mg QHS [facility] Administration Metoclopramide HCl 10 mg 06/11/21 20:42 Metoclopramide 10 Mg/2 Ml Inj IV Q6H PRN Nausea And Vomiting Ondansetron HCl 4 mg 06/11/21 20:42 Ondansetron 4 Mg/2 Ml Inj IV Q3H PRN Nausea And Vomiting Simple Syrup 15 ml 06/19/21 19:20 Simple Syrup 15 Ml FEEDTUBE PRN PRN Hypoglycemia Simple Syrup 30 ml 06/19/21 19:20 Simple Syrup 15 Ml FEEDTUBE PRN PRN Hypoglycemia Sodium Bicarbonate 325 mg 06/19/21 19:20 Sodium Bicarbonate 325 Mg Tab FEEDTUBE PRN PRN For Clogged Feeding Tube Sodium Chloride 10 ml 06/11/21 22:00 07/12/21 09:35 Sodium Chloride 0.9% 10 Ml Flush Syringe IV 10 ml BID JOLENE Administration Sodium Chloride 10 ml 06/11/21 20:42 Sodium Chloride 0.9% 10 Ml Flush Syringe IV PRN PRN LINE FLUSH Trazodone HCl 100 mg 07/05/21 22:00 07/11/21 21:36 Trazodone 50 Mg Tab PO 100 mg QHS JOLENE Administration Nutrition/Malnutrition Assess - Dietary Evaluation Nutrition/Malnutrition Findings: Nutrition Notes Start: 06/16/21 12:10 Freq: Status: Active Protocol: Document 07/08/21 14:32 BRITNI (Rec: 07/08/21 14:43 [facility] [id number]) Nutrition Notes Initial or Follow up Reassessment Current Diagnosis Diabetes,Hypertension, Respiratory Failure Other Pertinent Diagnosis Jeremiah's Angina, s/p cardiac arrest Current Diet TF-Vital AF 1.2 Quan at 50 ml/ hr Labs/Tests BG 183 POC Glu range since last assessment: 121-246 Pertinent Medications Reviewed Height 5 ft 8 in Weight 108.6 kg [place] Body Weight (kg) 63.63 BMI 36.3 Weight change and time frame Wt change noted Weight Status Obese Subjective/Other Information TF off at time of visit (12:38 ). Pt scheduled for trach down-sizing today. Pt currently on T-piece at 28% and awaiting placement of Passey-Ann valve. (R) chest tube removed on 06/29. Per RN, pt had been tolerating TF at goal rate. Percent of energy/protein needs met: 95% energy 71% pro Burn Absent Trauma Absent #1 Nutrition Diagnosis Inadequate oral intake Diagnosis Progress(for reassessment Continues documentation) Is patient on ventilator? No Is Patient Ambulatory and/or Out of Bed No REE-([facility]-confined to bed) 1961.292 Kcal/Kg value to use for calculation 14 Approximate Energy Requirements Using 1520 kcal/Kg Calculation Used for Recommendations Kcal/kg Additional Notes Pro needs 2g/kg IBW: 127g/day Fluid needs 1ml/kcal Nutrition Intervention Nutrition Support: Continue Vital AF 1.2 Quan at 50 ml/hr with 80ml water flush q4h. Kcal 1,440 Protein (gm) 90 Carbohydrates (gm) 133 Fat (gm) 65 Fluid (mL) 973 Fiber (gm) 6 Goal #1 TF tolerance Goal #2 TF to meet nutrient needs as best possible Follow-Up By: 07/15/21 Additional Comments F/U: stable TF, wt, resp status
[2021-07-12] MEDS: MELATONIN 5 MG TAB PO SCH (21:34)
[2021-07-12] MEDS: traZODone 50 MG TAB PO SCH (21:35)
[2021-07-12] MEDS: ENOXAPARIN 40 MG/0.4 ML INJ SUB-Q SCH (21:35)
[2021-07-12] MEDS: INSULIN GLARGINE 100 UNITS/ML SUB-Q SCH (21:35)
[2021-07-12] MEDS: MAGIC MOUTHWASH 30ML PO SCH (21:59)
[2021-07-13] MEDS: INSULIN LISPRO 100 UNIT/ML SUB-Q SCH ×5 (00:15→21:11)
[2021-07-13] MEDS: hydrALAZINE 100 MG TAB FEEDTUBE SCH ×3 (06:00→21:09)
[2021-07-13] MEDS: GABAPENTIN 100 MG CAP PO SCH ×3 (08:15→21:09)
--- NOTE | 2021-07-13 08:55 | Progress Note ---
Assessment and Plan Assessment and plan: Hospital Course: 07/01: Transfer from ICU on 06/30. Patient was stable with a trach and T-piece on 5 L. Tolerating tube feeds. 07/02: Patient remains on T-piece with trach in place. On 5 L of O2. She is alert and responds appropriately but not well due to trach tube. Tolerating tube feeds. Appears comfortable. No complaints. No new events reported. Case management reports patient with plans for LTAC placement. 07/03: Patient remains on T-piece with trach in place. On 5 L of O2. Patient tolerating tube feeds. We will check CT of head, neck and chest per pulmonary and general surgery recommendations based on CBC this morning. If leukocytosis persists we will proceed with studies. Patient remains afebrile today. 07/04: s/p X1 dose of IV lasix, patient is now stable on the T-piece via trach at 28% and 5L. Patient remains afebrile, leukocytosis improved, and CXR wiht no significant change. PRN [place] added for pain management. Electrolytes repleted 07/05: Remains stable on T-piece. Complaint of lack of sleep and tiredness this am, Trazadone and melatonin added for sleep. Continue PT- increase mobility and possibly OOB to chair today. Continue pain management. Electrolytes repleted. 07/06: Rested overnight. And continue to tolerate T-piece at 28% and 5L. Continue trazadone and melatonin at night for sleep and pain control with PRN analgesia. Discussed possibility of down sizing the trach to an 8 Shiley with General Surgery. Per Surgery downsizing would not be easy nor safe at this time. Plan to order #10 PSMV instead. Case management to arrange possible placement SNF vs subacute rehab. 07/07: JEREMIAS overnight. New report of BLE pain and swelling, per patient was on gabapentin and smooth muscle relaxers at home. BLE did appear swollen with palpable pedal pulses. Will get BLE doppler, resume gabapentin, and continue PRN analgesic for pain control. Continue mobility/strenght and conditioning with PT. Electrolytes repleted, repeat labs in the am. 07/08: Patient scheduled to have a downsize of Shiley today in the OR with surgery, surgery also requested neurology consult for MS work-up. Lidocaine patches to bilateral lower extremities discontinued. 07/09: Transfer to [facility]. s/p trach downsize by surgery. Will need aggressive PT/OT/ST. Possible eval by ST for MPV. Placement now of concern. Will continue coordination with CM. Neuro: doubt MG. suspects myopathy likely ICU acquired from prolonged immobilization. Again she will require aggressive PT rehab. 07/10: Appears volume overloaded. Lasix 40 mg IV x 2 doses ordered. Will need continued aggressive PT. ST eval for PSMV (still has not arrived per notes). 07/11: CT brain negative. MRI appears to have been cancelled, unclear why. Nonetheless doubt primary neurological etiology for weakness...suspect ICU acquired weakness. Continue discharge planning, rehab/snf is likely disposition. Will continue to work along side CM. 07/12: Awaiting placement for snf. 07/13: Awaiting placement for snf. Assessment and plan: This is a 76-year-old female with HTN, Coumadin use, dental caries, PVD s/p stenting to right leg, DM, arthritis, depression, gout and ? Pulmonary hypertension admitted with Jeremiah's angina s/p emergent cric with bleeding, right sided pneumothorax, supratherapeutic INR, hypernatremia, hyperchloremia, severe metabolic acidosis, hyperglycemia and hypocalcemia Neuro: Acute pain, ICU acquired weakness/myopathy, r/o myasthenia gravis, h/o depression, arthritis -prn fent pushes -Avoid delirium -Reorientation as needed -Maintain sleep-wake cycle -PT consulted; recommends LTAC -Neurology consulted, appreciate recommendations -B12, A1c, CK, TSH pending -MRI brain to rule out bleeding and old watershed infarct -gabapentin Cardiac: S/p cardiac arrest, h/o htn, PVD s/p stenting Right leg -06/14 cardiac arrest with ROSC -S/p vasopressor support with Levophed and Fabian-Synephrine -Blood pressure monitoring per protocol -Antihypertensive regimen: Hydralazine 100 mg every 8 -06/13 Echocardiogram EF 65-70% Respiratory: Acute hypoxic respiratory failure, right pneumothorax -CCM consulted, appreciate recommendations -S/p emergent cricothyroidectomy with surgery with 8.00 ETT -s/p trach 06/19 with surgery s/p #10 Shiley -07/08 Shiley downsized to #8 -T-piece trials started 2/23 -ST: Unable to tolerate Passy-Ann valve on 06/28 but has since tolerated 10 min -misplaced PSMV during transport and awaiting replacement -s/p Right chest tube removed 06/29 -06/13 bronchoscopy showed possible blood clot in left lung which may be acting as mucous plug however it was left in place due to possible bleeding inside lung if removed. -CXR post cardiac arrest shows clearance of mucous plug -06/16 CT chest shows moderate right pneumothorax with collapse of right upper lobe, right thoracostomy tube terminates at the collapsed right upper lobe, bilateral bronchus opacities compatible with infectious/inflammatory etiology, bilateral small pleural effusion, extensive subcutaneous air, small fluid collection in the anterior mediastinum is nonspecific -VAP bundle -SPO2 monitoring GI: Protein calorie malnutrition -24 hours -1545 mL -PPI -BR: senna, colace -s/p TPN -Nutrition consult for tube feeding -S/p PEG : Urinary retention, acute kidney injury possibly secondary to vasomotor nephropathy (resolved) -Strict intake and output -Renally dose medications -Avoid nephrotoxic medications -Daily weights -Consider nephrology consult if worsens -S/p 7 L LR bolus -Replete potassium -Lujan catheter replaced due to urinary retention ID: 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 dental caries -CT neck with contrast showed a significant right floor of mild swelling with extension into the submandibular and submental spaces, significant thickening and inflammation involving the right pharyngeal wall, with the parapharyngeal and retropharyngeal spaces at the level of the thyroid cartilage, epiglottis significantly swollen and so are the aryepiglottic folds resulting in significant airway narrowing at this level, no lymphadenopathy, symmetric submandibular and parathyroid glands, S few scattered caries but no periapical lucencies, nonspecific calcification along the right lateral oropharynx, no definite stone seen within the territory of the submandibular gland ducts, no suspicious rashes lesion -Infectious disease and general surgery consulted, appreciate recommendations -s/p cricothyroidectomy -Will follow surgery to direction and treatment of injury -Per surgery may have mucosal injury -Intra-Op findings include post pharyngeal swelling and bruising -s/p Solu-Medrol -Per ID: if leucocytosis persists after being off steroids, obtain CT neck with IV contrast to rule out any abscess -Antibiotic therapy Zosyn x 21 days completed -COVID-19 PCR negative -f/u blood culture -Monitor WBC and temperature curve -s/p 5L normal saline bolus in ED, 7 L LR bolus in ICU Heme: Coagulopathy (resolved), supratherapeutic INR (resolved), acute blood loss anemia (resolved), possible component of hemorrhagic shock (resolved), leukocytosis (resolved) -Patient is on Coumadin at home -S/p 5 FFP, 8 PRBC, vitamin K x3 -Trend CBC -Presented with H/H of 10.3/34.6 and decreased to 6.7/22.4 -INR 8.18-> 4.55-> 2.1-> 1.23-> 1.16-> 1.31 -Transfuse hemoglobin less than 7 -Lovenox subq (prophylactic) -Monitor for signs of bleeding -SCDs to BLE while in bed Endo: h/o DM, gout -S/p Lantus 25 units x 1 -Lantus subcu, titrate as needed -Avoid hypoglycemia -SSI -Accu-Cheks q. 6hr The high probability of a clinically significant, sudden or life threatening deterioration of the [multi] system(s) required my full and direct attention, intervention and personal management. The aggregate critical care time was [60] minutes. This time is in addition to time spent performing reported procedures but includes the following: [x] Data Review and interpretation [x] Patient assessment and monitoring of vital signs [x] Documentation [x] Medication orders and management Disposition Plan: IMCU Total Time Spent with Patient (Minutes): 60 History Interval history: No acute complaints resting comfortably. Hospitalist Physical - Physical exam Narrative exam: - General Apperance Constitutional: comfortable - EENT EENT: PERRL, mucous membranes moist - Respiratory Respiratory: lungs clear, rhonchi - Cardiovascular Cardiovascular: regular rate, normal S1, normal S2 Extremities: no peripheral edema bilat, no clubbing, cyanosis - Gastrointestinal Gastrointestinal: normoactive bowel sounds - Integumentary Integumentary: normal - Neurologic Cranial nerve examination: PERRL, EOMI, intact Speech examination: other (tracheostomy tube, no aphasia) Detailed motor examination: other (Bilateral proximal motor weakness upper> Lower, suppressed reflexes, no cranial weakness is noted neck muscles are intact) Motor examination - right side: 05/08: biceps - Constitutional Vitals: Temp Pulse Resp BP Pulse Ox 99.6 F 92 H 14 133/77 100 07/13/21 08:00 07/13/21 06:00 07/13/21 06:00 07/13/21 06:00 07/13/21 07:43 General appearance: Present: no acute distress, obese (Morbidly obese), other (On T-piece with trach in place.) HEART Score - HEART Score Troponin: Troponin T < 0.010 ng/mL (0.00-0.029) 06/11/21 23:21 Results - Labs CBC & Chem 7: 07/11/21 04:04 07/11/21 04:04 Labs: Laboratory Last Values WBC 5.5 K/mm3 (4.5-11.0) 07/11/21 04:04 RBC 3.50 M/mm3 (3.65-5.03) L 07/11/21 04:04 Hgb 8.7 gm/dl (10.1-14.3) L 07/11/21 04:04 Hct 27.6 % (30.3-42.9) L 07/11/21 04:04 MCV 79 fl (79-97) 07/11/21 04:04 MCH 25 pg (28-32) L 07/11/21 04:04 MCHC 32 % (30-34) 07/11/21 04:04 RDW 20.6 % (13.2-15.2) H 07/11/21 04:04 Plt Count 355 K/mm3 (140-440) 07/11/21 04:04 Lymph % (Auto) 6.1 % (13.4-35.0) L 07/04/21 05:13 [place] % (Auto) [employer] 07/11/21 04:04 Eos % (Auto) 1.8 % (0.0-4.3) 07/04/21 05:13 Baso % (Auto) 0.5 % (0.0-1.8) 07/04/21 05:13 Lymph # (Auto) 0.6 K/mm3 (1.2-5.4) L 07/04/21 05:13 [place] # (Auto) 0.6 K/mm3 (0.0-0.8) 07/04/21 05:13 Eos # (Auto) 0.2 K/mm3 (0.0-0.4) 07/04/21 05:13 Baso # (Auto) 0.0 K/mm3 (0.0-0.1) 07/04/21 05:13 Add Manual Diff Complete 07/11/21 04:04 Total Counted 100 07/11/21 04:04 Seg Neutrophils % 85.0 % (40.0-70.0) H 07/04/21 05:13 Seg Neuts % (Manual) 66.0 % (40.0-70.0) 07/11/21 04:04 Band Neutrophils % 3.0 % 07/11/21 04:04 Lymphocytes % (Manual) 15.0 % (13.4-35.0) 07/11/21 04:04 Reactive Lymphs % (Man) 0 % 07/11/21 04:04 Monocytes % (Manual) 6.0 % (0.0-7.3) 07/11/21 04:04 Eosinophils % (Manual) 3.0 % (0.0-4.3) 07/11/21 04:04 Basophils % (Manual) 2.0 % (0.0-1.8) H 07/11/21 04:04 Metamyelocytes % 4.0 % 07/11/21 04:04 Myelocytes % 1.0 % 07/11/21 04:04 Promyelocytes % 0 % 07/11/21 04:04 Blast Cells % 0 % 07/11/21 04:04 Nucleated RBC % Not Reportable 07/11/21 04:04 Seg Neutrophils # 8.0 K/mm3 (1.8-7.7) H 07/04/21 05:13 Seg Neutrophils # Man 3.6 K/mm3 (1.8-7.7) 07/11/21 04:04 Band Neutrophils # 0.2 K/mm3 07/11/21 04:04 Lymphocytes # (Manual) 0.8 K/mm3 (1.2-5.4) L 07/11/21 04:04 Abs React Lymphs (Man) 0.0 K/mm3 07/11/21 04:04 Monocytes # (Manual) 0.3 K/mm3 (0.0-0.8) 07/11/21 04:04 Eosinophils # (Manual) 0.2 K/mm3 (0.0-0.4) 07/11/21 04:04 Basophils # (Manual) 0.1 K/mm3 (0.0-0.1) 07/11/21 04:04 Metamyelocytes # 0.2 K/mm3 07/11/21 04:04 Myelocytes # 0.1 K/mm3 07/11/21 04:04 Promyelocytes # 0.0 K/mm3 07/11/21 04:04 Blast Cells # 0.0 K/mm3 07/11/21 04:04 WBC Morphology Not Reportable 07/11/21 04:04 Hypersegmented Neuts Not Reportable 07/11/21 04:04 Hyposegmented Neuts Not Reportable 07/11/21 04:04 Hypogranular Neuts Not Reportable 07/11/21 04:04 Smudge Cells Not Reportable 07/11/21 04:04 Toxic Granulation Not Reportable 07/11/21 04:04 Toxic Vacuolation Not Reportable 07/11/21 04:04 Dohle Bodies Not Reportable 07/11/21 04:04 Pelger-Huet Anomaly Not Reportable 07/11/21 04:04 Dennis Rods Not Reportable 07/11/21 04:04 Platelet Estimate Consistent w auto 07/11/21 04:04 Clumped Platelets Not Reportable 07/11/21 04:04 Plt Clumps, EDTA Not Reportable 07/11/21 04:04 Large Platelets Not Reportable 07/11/21 04:04 Giant Platelets Not Reportable 07/11/21 04:04 Platelet Satelliting Not Reportable 07/11/21 04:04 Plt Morphology Comment Not Reportable 07/11/21 04:04 RBC Morphology Not Reportable 07/11/21 04:04 Dimorphic RBCs Not Reportable 07/11/21 04:04 Polychromasia Not Reportable 07/11/21 04:04 Hypochromasia 2+ 07/11/21 04:04 Poikilocytosis Not Reportable 07/11/21 04:04 Anisocytosis 2+ 07/11/21 04:04 Microcytosis Not Reportable 07/11/21 04:04 Macrocytosis Not Reportable 07/11/21 04:04 Spherocytes 1+ 07/11/21 04:04 Pappenheimer Bodies Not Reportable 07/11/21 04:04 Sickle Cells Not Reportable 07/11/21 04:04 Target Cells 2+ 07/11/21 04:04 Tear Drop Cells 1+ 07/11/21 04:04 Ovalocytes 1+ 07/11/21 04:04 Stomatocytes Few 06/12/21 01:45 Helmet Cells Not Reportable 07/11/21 04:04 [place] Bodies Not Reportable 07/11/21 04:04 [place] Rings Not Reportable 07/11/21 04:04 [place] Cells Not Reportable 07/11/21 04:04 Bite Cells Not Reportable 07/11/21 04:04 Crenated Cell Not Reportable 07/11/21 04:04 Elliptocytes Not Reportable 07/11/21 04:04 Acanthocytes (Spur) Not Reportable 07/11/21 04:04 Rouleaux Not Reportable 07/11/21 04:04 Hemoglobin C Crystals Not Reportable 07/11/21 04:04 Schistocytes Rare 07/11/21 04:04 Malaria parasites Not Reportable 07/11/21 04:04 Edin Bodies Not Reportable 07/11/21 04:04 Hem Pathologist Commnt No 07/11/21 04:04 PT 18.3 Sec. (12.2-14.9) H 06/20/21 04:33 INR 1.37 (0.87-1.13) H 06/20/21 04:33 APTT 26.4 Sec. (24.2-36.6) 06/13/21 Unknown Fibrinogen 546 mg/dl (211-480) H 06/13/21 Unknown D-Dimer 1244.63 ng/mlDDU (0-234) H 06/13/21 Unknown ABG pH 7.448 pH Units (7.350-7.450) 07/04/21 01:44 POC ABG pCO2 25.6 mmHg (32.0-48.0) L 06/13/21 04:31 ABG pCO2 39.5 mm Hg 07/04/21 01:44 POC ABG pO2 138.8 mmHg (83-108) H 06/13/21 04:31 ABG pO2 107.7 mm Hg (80.0-90.0) H 07/04/21 01:44 POC ABG HCO3 21.4 06/13/21 04:31 ABG HCO3 26.7 mmol/L (20.0-26.0) H 07/04/21 01:44 ABG O2 Saturation 98.0 % (95.0-99.0) 07/04/21 01:44 ABG O2 Content 10.3 (0.0-44) 07/04/21 01:44 POC ABG Base Excess -0.7 06/13/21 04:31 ABG Base Excess 2.5 mmol/L (-2.0-3.0) 07/04/21 01:44 ABG Hemoglobin 7.5 gm/dl (12.0-16.0) L 07/04/21 01:44 ABG Oxyhemoglobin 98.1 (94-98) H 06/13/21 04:31 ABG Carboxyhemoglobin 1.6 % (0.0-5.0) 07/04/21 01:44 ABG Methemoglobin 0.6 % (0.0-1.5) 07/04/21 01:44 Oxyhemoglobin 95.9 % (95.0-99.0) 07/04/21 01:44 Carboxyhemoglobin 0.8 (0.5-1.5) 06/13/21 04:31 FiO2 35 % 07/04/21 01:44 FiO2 % 40.0 06/13/21 04:31 Sodium 139 mmol/L (137-145) 07/11/21 04:04 Potassium 3.3 mmol/L (3.6-5.0) L 07/11/21 04:04 Chloride 99.7 mmol/L (98-107) 07/11/21 04:04 Carbon Dioxide 27 mmol/L (22-30) 07/11/21 04:04 Anion Gap 16 mmol/L 07/11/21 04:04 BUN 15 mg/dL (7-17) 07/11/21 04:04 Creatinine 0.7 mg/dL (0.6-1.2) 07/11/21 04:04 Estimated GFR > 60 ml/min 07/11/21 04:04 BUN/Creatinine Ratio 21 % 07/11/21 04:04 Glucose 199 mg/dL (65-100) H 07/11/21 04:04 POC Glucose 158 mg/dL (70-105) H 07/13/21 05:55 Hemoglobin A1c 6.0 % (4-6) 07/11/21 04:04 Lactic Acid 5.30 mmol/L (0.7-2.0) H* 06/13/21 15:45 Calcium 8.5 mg/dL (8.4-10.2) 07/11/21 04:04 Phosphorus 3.70 mg/dL (2.5-4.5) D 07/08/21 04:20 Magnesium 1.90 mg/dL (1.7-2.3) 07/08/21 04:20 Total Bilirubin 0.40 mg/dL (0.1-1.2) 06/15/21 03:56 AST 64 units/L (5-40) H 06/15/21 03:56 ALT 106 units/L (7-56) H 06/15/21 03:56 Alkaline Phosphatase 55 units/L (35-129) 06/15/21 03:56 Troponin T < 0.010 ng/mL (0.00-0.029) 06/11/21 23:21 C-Reactive Protein 3.30 mg/dL (0.00-1.30) H 06/16/21 04:32 Total Protein 5.1 g/dL (6.3-8.2) L 06/15/21 03:56 Albumin 2.9 g/dL (3.9-5) L 06/15/21 03:56 Albumin/Globulin Ratio 1.3 % 06/15/21 03:56 Triglycerides 254 mg/dL (2-149) H 06/21/21 04:42 Vitamin B12 647.0 pg/mL (211-911) 07/08/21 15:36 TSH 1.050 mlU/mL (0.270-4.200) 07/08/21 15:36 Urine Color Yellow (Yellow) 06/12/21 17:00 Urine Turbidity Clear (Clear) 06/12/21 17:00 Urine pH 5.0 (5.0-7.0) 06/12/21 17:00 Ur Specific Datto 1.035 (1.003-1.030) H 06/12/21 17:00 Urine Protein 30 mg/dl mg/dL (Negative) 06/12/21 17:00 Urine Glucose (UA) 50 mg/dL (Negative) 06/12/21 17:00 Urine Ketones Tr mg/dL (Negative) 06/12/21 17:00 Urine Blood Neg (Negative) 06/12/21 17:00 Urine Nitrite Neg (Negative) 06/12/21 17:00 Urine Bilirubin Neg (Negative) 06/12/21 17:00 Urine Urobilinogen < 2.0 mg/dL (<2.0) 06/12/21 17:00 Ur Leukocyte Esterase Neg (Negative) 06/12/21 17:00 Urine WBC (Auto) < 1.0 /HPF (0.0-6.0) 06/12/21 17:00 Urine RBC (Auto) < 1.0 /HPF (0.0-6.0) 06/12/21 17:00 Urine Creatinine 81.1 mg/dL (0.1-20.0) H 06/15/21 10:40 Urine Sodium 42 mmol/L 06/15/21 10:40 Coronavirus (PCR) Negative (Negative) 06/12/21 09:50 Blood Type O POSITIVE 06/24/21 06:40 Antibody Screen Negative 06/24/21 06:40 Crossmatch See Detail 06/24/21 06:40 Lujan/IV: Voiding Method Indwelling Catheter Active Medications - Current Medications Current Medications: Generic Name Dose Route Start Last Admin Trade Name Freq PRN Reason Stop Dose Admin Hydrocodone Bitart/Acetaminophen 1 each 07/04/21 10:00 07/10/21 18:36 Hydrocodone/Acetaminophen 5-325 Mg Tab PO 1 each Q6H PRN Administration Pain, Moderate (4-6) Amlodipine Besylate 5 mg 06/23/21 10:00 07/12/21 09:34 Amlodipine 5 Mg Tab PO 5 mg QDAY JOLENE Administration Lipase/Protease/Amylase 1 each 06/19/21 19:20 Lipase 10,500/Protease 25,000/Amylase 43,750 (Units) Dr Melgar FEEDTUBE PRN PRN For Clogged Feeding Tube Atorvastatin Calcium 20 mg 06/22/21 22:00 07/12/21 21:35 Atorvastatin 20 Mg Tab PO 20 mg QHS JOLENE Administration Baclofen 10 mg 07/07/21 11:39 07/09/21 02:15 Baclofen 10 Mg Tab PO 10 mg BID PRN Administration Muscle pain Enoxaparin Sodium 40 mg 06/30/21 22:00 07/12/21 21:35 Enoxaparin 40 Mg/0.4 Ml Inj SUB-Q 40 mg QDAY@2200 JOLENE Administration Protocol Famotidine 20 mg 06/24/21 22:00 07/12/21 21:35 Famotidine 20 Mg Tab FEEDTUBE 20 mg BID JOLENE Administration Gabapentin 100 mg 07/07/21 14:00 07/13/21 08:15 Gabapentin 100 Mg Cap PO 100 mg TID JOLENE Administration Hydralazine HCl 100 mg 06/22/21 19:00 07/13/21 06:00 Hydralazine 100 Mg Tab FEEDTUBE 100 mg Q8HR JOLENE Administration Hydromorphone HCl 0.5 mg 07/10/21 12:00 07/12/21 21:58 Hydromorphone 1 Mg/1 Ml Inj IV 0.5 mg Q4H PRN Administration Pain , Severe (7-10) Insulin Glargine 30 units 07/04/21 22:00 07/12/21 21:35 Insulin Glargine 100 Units/Ml SUB-Q 30 units QHS JOLENE Administration Insulin Human Lispro 0 unit 06/12/21 12:00 07/13/21 06:00 Insulin Lispro 100 Unit/Ml SUB-Q 3 unit Q6HR JOLENE Administration Protocol Labetalol HCl 10 mg 06/21/21 18:00 07/10/21 10:27 Labetalol 20 Mg/4 Ml Inj IV 10 mg Q4HR PRN Administration Hypertension Lidocaine HCl 15 ml 07/12/21 20:00 07/12/21 21:59 Magic Mouthwash 30ml PO Not Given TID JOLENE Melatonin 5 mg 07/05/21 22:00 07/12/21 21:34 Melatonin 5 Mg Tab PO 5 mg QHS JOLENE Administration Simple Syrup 15 ml 06/19/21 19:20 Simple Syrup 15 Ml FEEDTUBE PRN PRN Hypoglycemia Simple Syrup 30 ml 06/19/21 19:20 Simple Syrup 15 Ml FEEDTUBE PRN PRN Hypoglycemia Sodium Bicarbonate 325 mg 06/19/21 19:20 Sodium Bicarbonate 325 Mg Tab FEEDTUBE PRN PRN For Clogged Feeding Tube Sodium Chloride 10 ml 06/11/21 22:00 07/12/21 21:36 Sodium Chloride 0.9% 10 Ml Flush Syringe IV 10 ml BID JOLENE Administration Trazodone HCl 100 mg 07/05/21 22:00 07/12/21 21:35 Trazodone 50 Mg Tab PO 100 mg QHS JOLENE Administration Nutrition/Malnutrition Assess - Dietary Evaluation Nutrition/Malnutrition Findings: Nutrition Notes Start: 06/16/21 12:10 Freq: Status: Active Protocol: Document 07/08/21 14:32 BRITNI (Rec: 07/08/21 14:43 BRITNI [email or web address]) Nutrition Notes Initial or Follow up Reassessment Current Diagnosis Diabetes,Hypertension, Respiratory Failure Other Pertinent Diagnosis Jeremiah's Angina, s/p cardiac arrest Current Diet TF-Vital AF 1.2 Quan at 50 ml/ hr Labs/Tests BG 183 POC Glu range since last assessment: 121-246 Pertinent Medications Reviewed Height 5 ft 8 in Weight 108.6 kg [place] Body Weight (kg) 63.63 BMI 36.3 Weight change and time frame Wt change noted Weight Status Obese Subjective/Other Information TF off at time of visit (12:38 ). Pt scheduled for trach down-sizing today. Pt currently on T-piece at 28% and awaiting placement of Passey-Ann valve. (R) chest tube removed on 06/29. Per RN, pt had been tolerating TF at goal rate. Percent of energy/protein needs met: 95% energy 71% pro Burn Absent Trauma Absent #1 Nutrition Diagnosis Inadequate oral intake Diagnosis Progress(for reassessment Continues documentation) Is patient on ventilator? No Is Patient Ambulatory and/or Out of Bed No REE-([facility]-confined to bed) 1961.292 Kcal/Kg value to use for calculation 14 Approximate Energy Requirements Using 1520 kcal/Kg Calculation Used for Recommendations Kcal/kg Additional Notes Pro needs 2g/kg IBW: 127g/day Fluid needs 1ml/kcal Nutrition Intervention Nutrition Support: Continue Vital AF 1.2 Quan at 50 ml/hr with 80ml water flush q4h. Kcal 1,440 Protein (gm) 90 Carbohydrates (gm) 133 Fat (gm) 65 Fluid (mL) 973 Fiber (gm) 6 Goal #1 TF tolerance Goal #2 TF to meet nutrient needs as best possible Follow-Up By: 07/15/21 Additional Comments F/U: stable TF, wt, resp status
[2021-07-13] MEDS: FAMOTIDINE 20 MG TAB FEEDTUBE SCH ×2 (09:26→21:08)
[2021-07-13] MEDS: amLODIPine 5 MG TAB PO SCH (09:26)
[2021-07-13] MEDS: MAGIC MOUTHWASH 30ML PO SCH ×3 (09:32→21:09)
--- NOTE | 2021-07-13 13:01 | Progress Note ---
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 07/13/21: no new recs. 07/12/21: Stable pulm [facility] for transport. Awaiting [facility] arrival for speech to work with patient. Continue PT/OT. Needs placement. 07/11/21: clinically stable for transport when bed is available at facility. Follow up speech recs. Reviewed neurology note, they state MRI cancelled. Appears this was done by surgery so they can discuss with them about why. Will continue to follow. 07/10/21: Continue current care. Trach changed out. Speech following. Awaiting placement. 07/09/21: Transfer to IMCU. PT/OT. Speech to see again now with smaller caliber trach. Placement. 07/08/21: Continue ICU. Once trach downsized may consider transition to step down if ICU bed is needed. Hopeful placement soon. PT/OT. 07/05/21: Continue ICU/IMCU status. Patient is stable for speech as well as PT/OT. Please reconsult them. [facility] has been denied for LTACH so will attempt to get patient into long-term facility. Will speak with surgery about possibly downsizing trach to 8. Speech has no equipment to fit 10. Do not feel comfortable doing it myself or asking RT to change out to smaller trach. 07/04/21: Will keep in ICU/IMCU for now. Treat pain in back with [place] and discontinue Tylenol. Follow up with CM on placement. 07/03/21: Continue current level of care. CM working on placement. 07/02/21: ABG now. Patient did have low grade temp earlier today and still has a white count despite being off steroids. It is trending down. Reviewed ID note and they did mention of persistent consider ct of neck. May need to do this. If done, please scan head as well. Will continue to follow. Spoke with RT about obtaining ABG. 07/01/21: Continue T-piece. Follow up speech recs. Follow up electrolytes. PT/OT. Stable for transfer when bed available 06/30/21: Aggressive replacement of electrolytes. Will repeat chemistry tonight around 8. please call for orders as we would like to keep her K at 4 and Mag at 2. Chemistry in the am. Stable for transfer to telemetry floor. 06/29/21: Speech did see but patient had decreased voice quality and increased wob so aborted. Will ask them to assess again on Thursday. Chest tube out and ordered follow up CXR. Stable for transfer but ok with continuing monitoring in ICU. If bed needed could go to step down. 06/28/21: monitor drainage in ICU for 24 more hours. Can likely come out tomorrow. Continue in ICU for now. Once chest tube out, no objection to transfer. 06/27/21: Will place chest tube to water seal. Instructed staff if any change in respiratory status, place back on suction and obtain CXR. Otherwise will leave off. Continue T-piece as tolerated. Rehab/care home/LTACH appropriate. STable for transfer if and when bed becomes available. 06/26/21: T-piece today. If off the vent, agree with surgery and removal of chest tube as subq emphysema is improving as well. PT has seen suggested LTACH, however if we are able to wean she may need care home/rehab. Prognosis continues to improve. 06/25/21: Continue PSV as tolerated. Hopeful T-piece in the next 24-48 hours. Will drop steroids down further on . Can switch to daily and even change to oral. PT/OT consult, and follow up recs. May need LTACH vs rehab vs both. Continue to follow. 06/24/21: Daily PSV trials. Maybe ready for T-piece sson. Continue to wean steroids to off. IMS changed to 40q12 which is fine. Continue chest tube until off vent. Still on list for [facility] but will discuss with CM about checking into LTACH as patient will need rehab. PT/OT consult. 06/21/21: Continue current level of sedation. Chest tube does not have air leak but there is clear evidence of a PTX on right. Stripped tube at bedside and will repeat CXR in the morning. Hold on weaning sedation for now and hold on PSV trials. May need second chest tube vs vats if PTX worsens or does not resolve. Patient still on list for [facility], hopeful they will have a bed soon. Drop steroids to 40q8 starting Thursday. Monitor renal function, likely will impr ove. Needs more free water. Prognosis still remains guarded. 06/20/21: Restart some sedation. At least pain and maybe diprovan. Would like to wake patient up at some point and attempt some PSV trials. Labs are off this am. Large bump in white count but no fever, also no diff drawn. Could be error vs steroid related but this is in just 24 hours. Will repeat tomorrow. If spikes a temp neves culture as well. Small bump in Cr but still in normal range. Will watch. Now that peg in place, tube feeds and free water flushes. Still on list for [facility]. Patient has been steroids greater than 7 days so will have to wean. Can drop to 60q8 starting tomorrow. Prognosis still remains guarded. 06/19/21: surgery to attempt trach and peg today. Still will ask to keep on transfer list for [facility] as her other issues still need to be addressed. If able to place peg, can stop clinimix, give free water and start tube feeds. Prognosis remains guarded. pH better with drop in tidal volume. 06/18/21: [facility] has agreed to accept but no ICU beds available at this time. S poke with Dr. Vasquez yesterday and Dr. Patricia spoke with ENT there. Spoke with RT this am and patient did have a leak when cuff let down and her tidal volumes dropped to below 100. Patient remains on abx and steriods. Will consider lightening sedation tomorrow and seeing how patient does if cuff leak persists. Dropped tidal volumes to 450. Continue PPN for now. 06/17/21: spoke with surgery and they feel transfer is reasonable. I have reached out to [facility] and [facility]MS has spoken with someone from [place]. Await to hear back from them. Continue supportive measures and adequate sedation for pain control. No PSV trials as of yet. Blood sugar control, increase lantus. Most likely secondary to steroids. Continue abx therapy. Guarded prognosis. 06/16/21: Renal function improved with fluids. IMS to give more fluids (LR) today which I agree with. FeNa is =0.7. Should be fluid responsive. Continue clinimix. Needs long acting insulin. Agree with lantus. Asked nursing to increase sedation now that we know that patient's mental status is stable. Picc today. Air leak test vs Neck CT on tomorrow. 06/15/21: Hopeful with worsening renal function ( likely from code on yesterday) that sedatives are just lingering from that. Still making good urine but output has fallen off. Will send urine sodium and urine cr to check Fena. Most likely this is prerenal. ordered renal ultrasound as well. Continue abx and steroids. Will start clinimix today. This should help with the free water piece. Will give another liter bolus of LR right now. Keep sedation off for now. Guarded prognosis. 06/14/21: Will discuss with surgery future plans. They have ordered steroids to help with inflammation and abx continue. All others appears stable and no acute evidence of bleeding at this time. Follow up surgery recs if any new ones. Guarded prognosis. 06/13/21: Patient to back to OR today. BLood transfusion. Will send DIC panel and may need to given cryo if over 6 units of PRBC's given. Patient will likely need trach and peg as we need to address nutrition. Chest tube placed, large bore now. Patient now with right sided effusion. Hemothorax???. Will continue to monitor output. Needs picc line as femoral should come out soon. Continue pressors. Continue sedation for pain control and comfort. Guarded prognosis. Surgery comfortable with neck and current situation so they have not request transfer. 1. Placed right femoral central line. pressors can run through this. 2. Repeat chemistry stat given bicarb of 8 and blood sugar of greater than 600. Ordering FSBS now. Earlier bicarb was 25. If accurate will need bicarb drip and vasopressin but not sure as pH on blood gas was normal done around the same time. 3. Coagulopathy is improving. INR down to 4.55 and PTT and pT improving. Will continue to give FFP. Ordered more vitamin K. H/H is stable but patient is oozing from neck and mouth. 4. Vasopressor for blood pressure. Need to keep map 65 and greater 5. Lujan is needed for accurate I/O 6. Surgery called by IMS about current CT situation. They state they will reassess in the am. I have reviewed the images myself. If I can position the patient safely without compromising the airway after adequate sedation, may consider placing chest tube now as INR is better and FFP is hanging. Patient is morbidly obese so shits could move the ET tube so if not safe, will wait until surgery comes in the morning. 7. Would not attempt to pass OG or NG tube given current situation in neck 8. Will discuss with surgery tomorrow but I feel this patient should be transferred to a tertiary care facility with ENT as we do not have that service here. CCT 31 minutes. Subjective Date of service: 07/13/21 Interval history: No acute events. Objective Vital Signs - 12hr 07/13/21 07/13/21 07/13/21 01:00 02:00 03:00 Temperature Pulse Rate 99 H 94 H Pulse Rate [ From Monitor] Respiratory 26 H 21 Rate Blood Pressure 139/78 141/72 129/68 O2 Sat by Pulse 100 93 94 Oximetry O2 Sat by Pulse Oximetry [ Assessment] 07/13/21 07/13/21 07/13/21 04:00 05:00 05:05 Temperature 98.5 F Pulse Rate 96 H 96 H Pulse Rate [ 102 H From Monitor] Respiratory 20 17 Rate Blood Pressure 138/71 152/84 O2 Sat by Pulse 96 95 Oximetry O2 Sat by Pulse 98 Oximetry [ Assessment] 07/13/21 07/13/21 07/13/21 06:00 07:00 07:43 Temperature Pulse Rate 92 H 90 Pulse Rate [ From Monitor] Respiratory 14 12 Rate Blood Pressure 133/77 133/77 O2 Sat by Pulse 99 98 100 Oximetry O2 Sat by Pulse 100 Oximetry [ Assessment] 07/13/21 07/13/21 07/13/21 08:00 09:01 09:26 Temperature 99.6 F Pulse Rate 96 H 99 H 92 H Pulse Rate [ From Monitor] Respiratory 21 12 Rate Blood Pressure 143/80 153/83 153/82 O2 Sat by Pulse 99 98 Oximetry O2 Sat by Pulse Oximetry [ Assessment] 07/13/21 12:00 Temperature 99.8 F H Pulse Rate Pulse Rate [ From Monitor] Respiratory Rate Blood Pressure O2 Sat by Pulse Oximetry O2 Sat by Pulse Oximetry [ Assessment] Constitutional: alert, other (on vent trach in place) Eyes: non-icteric ENT: oropharynx moist Neck: other (trach in place) Ascultation: Bilateral: clear Percussion: Bilateral: not dull Cardiovascular: regular rate and rhythm Gastrointestinal: normoactive bowel sounds Integumentary: normal Extremities: no edema, other (subq emphysema) Neurologic: normal mental status CBC and BMP: 07/11/21 04:04 07/11/21 04:04 ABG, PT/INR, D-dimer: ABG ABG pH 7.448 pH Units (7.350-7.450) 07/04/21 01:44 POC ABG pCO2 25.6 mmHg (32.0-48.0) L 06/13/21 04:31 ABG pCO2 39.5 mm Hg 07/04/21 01:44 POC ABG pO2 138.8 mmHg (83-108) H 06/13/21 04:31 ABG pO2 107.7 mm Hg (80.0-90.0) H 07/04/21 01:44 POC ABG HCO3 21.4 06/13/21 04:31 ABG O2 Saturation 98.0 % (95.0-99.0) 07/04/21 01:44 PT/INR, D-dimer PT 18.3 Sec. (12.2-14.9) H 06/20/21 04:33 INR 1.37 (0.87-1.13) H 06/20/21 04:33 D-Dimer 1244.63 ng/mlDDU (0-234) H 06/13/21 Unknown Abnormal lab findings: Abnormal Labs 06/11/21 06/11/21 06/11/21 15:23 15:23 19:20 WBC 12.0 H RBC Hgb Hct MCV 72 L MCH 21 L RDW 17.5 H Plt Count Lymph % (Auto) 12.9 L [place] % (Auto) 8.6 H Lymph # (Auto) [place] # (Auto) 1.0 H Seg Neutrophils % 77.4 H Seg Neuts % (Manual) Lymphocytes % (Manual) Monocytes % (Manual) Basophils % (Manual) Seg Neutrophils # 9.3 H Seg Neutrophils # Man Lymphocytes # (Manual) Monocytes # (Manual) PT INR APTT Fibrinogen D-Dimer ABG pH POC ABG pCO2 POC ABG pO2 ABG pO2 ABG HCO3 ABG O2 Saturation ABG Base Excess ABG Hemoglobin ABG Oxyhemoglobin Oxyhemoglobin Sodium Potassium Chloride Carbon Dioxide BUN Creatinine Glucose 144 H POC Glucose Lactic Acid Calcium Phosphorus Magnesium AST ALT Alkaline Phosphatase C-Reactive Protein Total Protein Albumin Triglycerides Ur Specific [place] Urine Creatinine Crossmatch See Detail 06/11/21 06/11/2106/11/22 19:29 19:29 23:21 WBC 15.8 H RBC Hgb 9.4 L Hct MCV 72 L MCH 22 L RDW 17.4 H Plt Count Lymph % (Auto) 9.2 L [place] % (Auto) Lymph # (Auto) [place] # (Auto) Seg Neutrophils % 89.0 H Seg Neuts % (Manual) Lymphocytes % (Manual) Monocytes % (Manual) Basophils % (Manual) Seg Neutrophils # 14.0 H Seg Neutrophils # Man Lymphocytes # (Manual) Monocytes # (Manual) PT 72.9 H INR 8.18 H* APTT 71.7 H* Fibrinogen D-Dimer ABG pH POC ABG pCO2 POC ABG pO2 ABG pO2 ABG HCO3 ABG O2 Saturation ABG Base Excess ABG Hemoglobin ABG Oxyhemoglobin Oxyhemoglobin Sodium 149 H D Potassium Chloride 124.3 H Carbon Dioxide 8 L* D BUN Creatinine 0.3 L Glucose 628 H* POC Glucose Lactic Acid Calcium 2.4 L* D Phosphorus Magnesium AST ALT < 5 L Alkaline Phosphatase 19 L C-Reactive Protein Total Protein 1.6 L D Albumin 0.8 L Triglycerides Ur Specific [place] Urine Creatinine Crossmatch 06/11/21 06/11/21 06/11/21 23:21 23:22 23:42 WBC RBC Hgb Hct MCV MCH 27 L RDW 22.2 H Plt Count 131 L Lymph % (Auto) Lake % (Auto) Lymph # (Auto) Lake # (Auto) Seg Neutrophils % Seg Neuts % (Manual) Lymphocytes % (Manual) Monocytes % (Manual) Basophils % (Manual) Seg Neutrophils # Seg Neutrophils # Man Lymphocytes # (Manual) Monocytes # (Manual) PT 46.3 H INR 4.55 H APTT 54.8 H Fibrinogen D-Dimer ABG pH POC ABG pCO2 POC ABG pO2 325.9 H ABG pO2 ABG HCO3 ABG O2 Saturation ABG Base Excess ABG Hemoglobin 8.0 L ABG Oxyhemoglobin 99.0 H Oxyhemoglobin Sodium Potassium Chloride Carbon Dioxide BUN Creatinine Glucose POC Glucose Lactic Acid Calcium Phosphorus Magnesium AST ALT Alkaline Phosphatase C-Reactive Protein Total Protein Albumin Triglycerides Ur Specific [place] Urine Creatinine Crossmatch 06/12/21 06/12/21 06/12/21 01:45 01:45 01:45 WBC 21.6 H RBC 3.04 L Hgb 6.7 L D Hct 22.4 L D MCV 74 L MCH 22 L RDW 18.9 H Plt Count Lymph % (Auto) Lake % (Auto) Lymph # (Auto) [place] # (Auto) Seg Neutrophils % Seg Neuts % (Manual) 76.0 H Lymphocytes % (Manual) 2.0 L Monocytes % (Manual) 8.0 H Basophils % (Manual) Seg Neutrophils # Seg Neutrophils # Man 16.4 H Lymphocytes # (Manual) 0.4 L Monocytes # (Manual) 1.7 H PT 25.4 H INR 2.10 H APTT Fibrinogen D-Dimer ABG pH POC ABG pCO2 POC ABG pO2 ABG pO2 ABG HCO3 ABG O2 Saturation ABG Base Excess ABG Hemoglobin ABG Oxyhemoglobin Oxyhemoglobin Sodium Potassium 5.6 H D Chloride Carbon Dioxide 20 L D BUN Creatinine Glucose 368 H POC Glucose Lactic Acid Calcium 7.1 L D Phosphorus Magnesium AST ALT Alkaline Phosphatase C-Reactive Protein Total Protein 5.3 L D Albumin 3.1 L Triglycerides Ur Specific [place] Urine Creatinine Crossmatch 06/12/21 06/12/21 06/12/21 02:05 04:41 11:05 WBC 14.6 H RBC 3.52 L Hgb 8.5 L Hct 27.7 L MCV MCH 24 L RDW 20.9 H Plt Count Lymph % (Auto) Lake % (Auto) Lymph # (Auto) [place] # (Auto) Seg Neutrophils % Seg Neuts % (Manual) Lymphocytes % (Manual) Monocytes % (Manual) Basophils % (Manual) Seg Neutrophils # Seg Neutrophils # Man Lymphocytes # (Manual) Monocytes # (Manual) PT INR APTT Fibrinogen D-Dimer ABG pH POC ABG pCO2 POC ABG pO2 224.6 H ABG pO2 ABG HCO3 ABG O2 Saturation ABG Base Excess ABG Hemoglobin 7.3 L ABG Oxyhemoglobin 98.7 H Oxyhemoglobin Sodium Potassium Chloride Carbon Dioxide BUN Creatinine Glucose POC Glucose 308 H Lactic Acid Calcium Phosphorus Magnesium AST ALT Alkaline Phosphatase C-Reactive Protein Total Protein Albumin Triglycerides Ur Specific [place] Urine Creatinine Crossmatch 06/12/21 06/12/21 06/12/21 11:05 11:05 12:18 WBC RBC Hgb Hct MCV MCH RDW Plt Count Lymph % (Auto) Lake % (Auto) Lymph # (Auto) [place] # (Auto) Seg Neutrophils % Seg Neuts % (Manual) Lymphocytes % (Manual) Monocytes % (Manual) Basophils % (Manual) Seg Neutrophils # Seg Neutrophils # Man Lymphocytes # (Manual) Monocytes # (Manual) PT 16.8 H INR 1.23 H APTT Fibrinogen D-Dimer ABG pH POC ABG pCO2 POC ABG pO2 ABG pO2 ABG HCO3 ABG O2 Saturation ABG Base Excess ABG Hemoglobin ABG Oxyhemoglobin Oxyhemoglobin Sodium Potassium Chloride Carbon Dioxide BUN 24 H Creatinine Glucose 324 H POC Glucose 281 H Lactic Acid Calcium 7.5 L Phosphorus Magnesium AST 70 H ALT 57 H Alkaline Phosphatase C-Reactive Protein Total Protein 6.0 L Albumin 3.6 L Triglycerides Ur Specific [place] Urine Creatinine Crossmatch 06/12/21 06/12/21 06/12/21 17:00 17:00 17:00 WBC RBC Hgb 7.5 L Hct 24.0 L MCV MCH RDW Plt Count Lymph % (Auto) Lake % (Auto) Lymph # (Auto) [place] # (Auto) Seg Neutrophils % Seg Neuts % (Manual) Lymphocytes % (Manual) Monocytes % (Manual) Basophils % (Manual) Seg Neutrophils # Seg Neutrophils # Man Lymphocytes # (Manual) Monocytes # (Manual) PT 16.0 H INR 1.16 H APTT Fibrinogen D-Dimer ABG pH POC ABG pCO2 POC ABG pO2 ABG pO2 ABG HCO3 ABG O2 Saturation ABG Base Excess ABG Hemoglobin ABG Oxyhemoglobin Oxyhemoglobin Sodium Potassium Chloride Carbon Dioxide BUN Creatinine Glucose POC Glucose Lactic Acid Calcium Phosphorus Magnesium AST ALT Alkaline Phosphatase C-Reactive Protein Total Protein Albumin Triglycerides Ur Specific [place] 1.035 H Urine Creatinine Crossmatch 06/12/21 06/12/21 06/12/21 18:06 23:00 23:05 WBC RBC Hgb 7.6 L Hct 23.5 L MCV MCH RDW Plt Count Lymph % (Auto) [place] % (Auto) Lymph # (Auto) [place] # (Auto) Seg Neutrophils % Seg Neuts % (Manual) Lymphocytes % (Manual) Monocytes % (Manual) Basophils % (Manual) Seg Neutrophils # Seg Neutrophils # Man Lymphocytes # (Manual) Monocytes # (Manual) PT INR APTT Fibrinogen D-Dimer ABG pH POC ABG pCO2 POC ABG pO2 ABG pO2 ABG HCO3 ABG O2 Saturation ABG Base Excess ABG Hemoglobin ABG Oxyhemoglobin Oxyhemoglobin Sodium Potassium Chloride Carbon Dioxide BUN Creatinine Glucose POC Glucose 257 H 300 H Lactic Acid Calcium Phosphorus Magnesium AST ALT Alkaline Phosphatase C-Reactive Protein Total Protein Albumin Triglycerides Ur Specific [place] Urine Creatinine Crossmatch 06/13/21 06/13/21 06/13/21 04:31 05:19 07:30 WBC RBC Hgb 6.8 L Hct 21.7 L MCV MCH RDW Plt Count Lymph % (Auto) [place] % (Auto) Lymph # (Auto) [place] # (Auto) Seg Neutrophils % Seg Neuts % (Manual) Lymphocytes % (Manual) Monocytes % (Manual) Basophils % (Manual) Seg Neutrophils # Seg Neutrophils # Man Lymphocytes # (Manual) Monocytes # (Manual) PT INR APTT Fibrinogen D-Dimer ABG pH 7.541 H POC ABG pCO2 25.6 L POC ABG pO2 138.8 H ABG pO2 ABG HCO3 ABG O2 Saturation ABG Base Excess ABG Hemoglobin 7.3 L ABG Oxyhemoglobin 98.1 H Oxyhemoglobin Sodium Potassium Chloride Carbon Dioxide BUN Creatinine Glucose POC Glucose 286 H Lactic Acid Calcium Phosphorus Magnesium AST ALT Alkaline Phosphatase C-Reactive Protein Total Protein Albumin Triglycerides Ur Specific [place] Urine Creatinine Crossmatch 06/13/21 06/13/21 06/13/21 07:30 12:04 14:50 WBC RBC Hgb Hct MCV MCH RDW Plt Count Lymph % (Auto) [place] % (Auto) Lymph # (Auto) [place] # (Auto) Seg Neutrophils % Seg Neuts % (Manual) Lymphocytes % (Manual) Monocytes % (Manual) Basophils % (Manual) Seg Neutrophils # Seg Neutrophils # Man Lymphocytes # (Manual) Monocytes # (Manual) PT INR APTT Fibrinogen D-Dimer ABG pH 7.039 L* 7.182 L* POC ABG pCO2 POC ABG pO2 ABG pO2 63.1 L ABG HCO3 17.4 L ABG O2 Saturation 73.4 L ABG Base Excess -12.6 L -7.1 L ABG Hemoglobin 7.7 L 6.9 L ABG Oxyhemoglobin Oxyhemoglobin 71.8 L 93.5 L Sodium Potassium Chloride 108.9 H Carbon Dioxide BUN 28 H Creatinine Glucose 293 H POC Glucose Lactic Acid Calcium 7.2 L Phosphorus Magnesium AST 106 H ALT 92 H Alkaline Phosphatase C-Reactive Protein Total Protein 5.6 L Albumin 3.3 L Triglycerides Ur Specific [place] Urine Creatinine Crossmatch 06/13/21 06/13/21 06/13/21 14:54 15:45 17:34 WBC RBC Hgb Hct MCV MCH RDW Plt Count Lymph % (Auto) [place] % (Auto) Lymph # (Auto) [place] # (Auto) Seg Neutrophils % Seg Neuts % (Manual) Lymphocytes % (Manual) Monocytes % (Manual) Basophils % (Manual) Seg Neutrophils # Seg Neutrophils # Man Lymphocytes # (Manual) Monocytes # (Manual) PT INR APTT Fibrinogen D-Dimer ABG pH POC ABG pCO2 POC ABG pO2 ABG pO2 178.4 H ABG HCO3 ABG O2 Saturation 99.1 H ABG Base Excess ABG Hemoglobin 8.0 L ABG Oxyhemoglobin Oxyhemoglobin Sodium Potassium Chloride 107.3 H Carbon Dioxide 19 L BUN 33 H Creatinine 1.5 H Glucose 379 H POC Glucose Lactic Acid 5.30 H* Calcium 6.8 L Phosphorus Magnesium AST ALT Alkaline Phosphatase C-Reactive Protein Total Protein Albumin Triglycerides Ur Specific [place] Urine Creatinine Crossmatch 06/13/21 06/13/21 06/13/21 17:40 23:29 Unknown WBC 22.5 H RBC 3.16 L Hgb 8.0 L Hct 26.0 L MCV MCH 26 L RDW 21.4 H Plt Count Lymph % (Auto) [place] % (Auto) Lymph # (Auto) [place] # (Auto) Seg Neutrophils % Seg Neuts % (Manual) 88.0 H Lymphocytes % (Manual) 4.0 L Monocytes % (Manual) Basophils % (Manual) Seg Neutrophils # Seg Neutrophils # Man 19.8 H Lymphocytes # (Manual) 0.9 L Monocytes # (Manual) 1.4 H PT INR APTT Fibrinogen D-Dimer ABG pH POC ABG pCO2 POC ABG pO2 ABG pO2 ABG HCO3 ABG O2 Saturation ABG Base Excess ABG Hemoglobin ABG Oxyhemoglobin Oxyhemoglobin Sodium Potassium Chloride Carbon Dioxide BUN Creatinine Glucose POC Glucose 294 H 288 H Lactic Acid Calcium Phosphorus Magnesium AST ALT Alkaline Phosphatase C-Reactive Protein Total Protein Albumin Triglycerides Ur Specific [place] Urine Creatinine Crossmatch 06/13/21 06/14/21 06/14/21 Unknown 05:39 06:15 WBC RBC 2.93 L Hgb 7.2 L Hct 23.2 L MCV MCH 25 L RDW 21.2 H Plt Count Lymph % (Auto) [place] % (Auto) Lymph # (Auto) [place] # (Auto) Seg Neutrophils % Seg Neuts % (Manual) Lymphocytes % (Manual) Monocytes % (Manual) Basophils % (Manual) Seg Neutrophils # Seg Neutrophils # Man Lymphocytes # (Manual) Monocytes # (Manual) PT 17.6 H INR 1.31 H APTT Fibrinogen 546 H D-Dimer 1244.63 H ABG pH POC ABG pCO2 POC ABG pO2 ABG pO2 ABG HCO3 ABG O2 Saturation ABG Base Excess ABG Hemoglobin ABG Oxyhemoglobin Oxyhemoglobin Sodium Potassium Chloride Carbon Dioxide BUN Creatinine Glucose POC Glucose 246 H Lactic Acid Calcium Phosphorus Magnesium AST ALT Alkaline Phosphatase C-Reactive Protein Total Protein Albumin Triglycerides Ur Specific [place] Urine Creatinine Crossmatch 06/14/21 06/14/21 06/14/21 06:15 06:15 09:13 WBC RBC Hgb Hct MCV MCH RDW Plt Count Lymph % (Auto) [place] % (Auto) Lymph # (Auto) [place] # (Auto) Seg Neutrophils % Seg Neuts % (Manual) Lymphocytes % (Manual) Monocytes % (Manual) Basophils % (Manual) Seg Neutrophils # Seg Neutrophils # Man Lymphocytes # (Manual) Monocytes # (Manual) PT INR APTT Fibrinogen D-Dimer ABG pH POC ABG pCO2 POC ABG pO2 ABG pO2 183.0 H ABG HCO3 ABG O2 Saturation 99.2 H ABG Base Excess ABG Hemoglobin 6.6 L ABG Oxyhemoglobin Oxyhemoglobin Sodium 147 H Potassium Chloride 112.5 H Carbon Dioxide 21 L BUN 36 H Creatinine 1.4 H Glucose 281 H POC Glucose Lactic Acid Calcium 6.9 L Phosphorus Magnesium AST ALT Alkaline Phosphatase C-Reactive Protein Total Protein Albumin Triglycerides 189 H Ur Specific [place] Urine Creatinine Crossmatch 06/14/21 06/14/21 06/14/21 10:45 12:16 13:30 WBC RBC Hgb 7.1 L Hct 22.3 L MCV MCH RDW Plt Count Lymph % (Auto) [place] % (Auto) Lymph # (Auto) [place] # (Auto) Seg Neutrophils % Seg Neuts % (Manual) Lymphocytes % (Manual) Monocytes % (Manual) Basophils % (Manual) Seg Neutrophils # Seg Neutrophils # Man Lymphocytes # (Manual) Monocytes # (Manual) PT INR APTT Fibrinogen D-Dimer ABG pH 7.205 L POC ABG pCO2 POC ABG pO2 ABG pO2 261.3 H ABG HCO3 ABG O2 Saturation 99.4 H ABG Base Excess -7.2 L ABG Hemoglobin 7.6 L ABG Oxyhemoglobin Oxyhemoglobin Sodium Potassium Chloride Carbon Dioxide BUN Creatinine Glucose POC Glucose 174 H Lactic Acid Calcium Phosphorus Magnesium AST ALT Alkaline Phosphatase C-Reactive Protein Total Protein Albumin Triglycerides Ur Specific [place] Urine Creatinine Crossmatch 06/14/21 06/14/21 06/15/21 17:40 18:43 00:06 WBC RBC Hgb Hct MCV MCH RDW Plt Count Lymph % (Auto) [place] % (Auto) Lymph # (Auto) [place] # (Auto) Seg Neutrophils % Seg Neuts % (Manual) Lymphocytes % (Manual) Monocytes % (Manual) Basophils % (Manual) Seg Neutrophils # Seg Neutrophils # Man Lymphocytes # (Manual) Monocytes # (Manual) PT INR APTT Fibrinogen D-Dimer ABG pH 7.292 L POC ABG pCO2 POC ABG pO2 ABG pO2 78.8 L ABG HCO3 ABG O2 Saturation ABG Base Excess -5.0 L ABG Hemoglobin 9.1 L ABG Oxyhemoglobin Oxyhemoglobin 93.7 L Sodium Potassium Chloride Carbon Dioxide BUN Creatinine Glucose POC Glucose 182 H 144 H Lactic Acid Calcium Phosphorus Magnesium AST ALT Alkaline Phosphatase C-Reactive Protein Total Protein Albumin Triglycerides Ur Specific [place] Urine Creatinine Crossmatch 06/15/21 06/15/21 06/15/21 03:55 03:56 10:40 WBC RBC Hgb 8.4 L Hct 25.8 L MCV MCH RDW Plt Count Lymph % (Auto) [place] % (Auto) Lymph # (Auto) [place] # (Auto) Seg Neutrophils % Seg Neuts % (Manual) Lymphocytes % (Manual) Monocytes % (Manual) Basophils % (Manual) Seg Neutrophils # Seg Neutrophils # Man Lymphocytes # (Manual) Monocytes # (Manual) PT INR APTT Fibrinogen D-Dimer ABG pH POC ABG pCO2 POC ABG pO2 ABG pO2 ABG HCO3 ABG O2 Saturation ABG Base Excess ABG Hemoglobin ABG Oxyhemoglobin Oxyhemoglobin Sodium 147 H Potassium Chloride 112.2 H Carbon Dioxide 21 L BUN 47 H Creatinine 1.9 H Glucose 272 H POC Glucose Lactic Acid Calcium 7.3 L Phosphorus Magnesium AST 64 H ALT 106 H Alkaline Phosphatase C-Reactive Protein Total Protein 5.1 L Albumin 2.9 L Triglycerides Ur Specific [place] Urine Creatinine 81.1 H Crossmatch 06/15/21 06/15/21 06/15/21 11:46 17:16 23:17 WBC RBC Hgb Hct MCV MCH RDW Plt Count Lymph % (Auto) [place] % (Auto) Lymph # (Auto) [place] # (Auto) Seg Neutrophils % Seg Neuts % (Manual) Lymphocytes % (Manual) Monocytes % (Manual) Basophils % (Manual) Seg Neutrophils # Seg Neutrophils # Man Lymphocytes # (Manual) Monocytes # (Manual) PT INR APTT Fibrinogen D-Dimer ABG pH POC ABG pCO2 POC ABG pO2 ABG pO2 ABG HCO3 ABG O2 Saturation ABG Base Excess ABG Hemoglobin ABG Oxyhemoglobin Oxyhemoglobin Sodium Potassium Chloride Carbon Dioxide BUN Creatinine Glucose POC Glucose 271 H 268 H 264 H Lactic Acid Calcium Phosphorus Magnesium AST ALT Alkaline Phosphatase C-Reactive Protein Total Protein Albumin Triglycerides Ur Specific [place] Urine Creatinine Crossmatch 06/15/21 06/15/21 06/16/21 Unknown Unknown 04:32 WBC RBC 3.21 L 3.16 L Hgb 8.4 L 8.2 L Hct 26.1 L 25.4 L MCV MCH 26 L 26 L RDW 21.3 H 21.2 H Plt Count 105 L 118 L Lymph % (Auto) [place] % (Auto) Lymph # (Auto) [place] # (Auto) Seg Neutrophils % Seg Neuts % (Manual) Lymphocytes % (Manual) Monocytes % (Manual) Basophils % (Manual) Seg Neutrophils # Seg Neutrophils # Man Lymphocytes # (Manual) Monocytes # (Manual) PT INR APTT Fibrinogen D-Dimer ABG pH 7.465 H POC ABG pCO2 POC ABG pO2 ABG pO2 114.1 H ABG HCO3 ABG O2 Saturation ABG Base Excess ABG Hemoglobin 8.4 L ABG Oxyhemoglobin Oxyhemoglobin Sodium Potassium Chloride Carbon Dioxide BUN Creatinine Glucose POC Glucose Lactic Acid Calcium Phosphorus Magnesium AST ALT Alkaline Phosphatase C-Reactive Protein Total Protein Albumin Triglycerides Ur Specific [place] Urine Creatinine Crossmatch 06/16/21 06/16/21 06/16/21 04:32 04:32 05:08 WBC RBC Hgb Hct MCV MCH RDW Plt Count Lymph % (Auto) [place] % (Auto) Lymph # (Auto) [place] # (Auto) Seg Neutrophils % Seg Neuts % (Manual) Lymphocytes % (Manual) Monocytes % (Manual) Basophils % (Manual) Seg Neutrophils # Seg Neutrophils # Man Lymphocytes # (Manual) Monocytes # (Manual) PT INR APTT Fibrinogen D-Dimer ABG pH POC ABG pCO2 POC ABG pO2 ABG pO2 ABG HCO3 ABG O2 Saturation ABG Base Excess ABG Hemoglobin ABG Oxyhemoglobin Oxyhemoglobin Sodium 148 H Potassium 3.3 L Chloride 115.1 H Carbon Dioxide 21 L BUN 54 H Creatinine 1.6 H Glucose 367 H POC Glucose 356 H Lactic Acid Calcium 7.4 L Phosphorus Magnesium AST ALT Alkaline Phosphatase C-Reactive Protein 3.30 H Total Protein Albumin Triglycerides Ur Specific [place] Urine Creatinine Crossmatch 06/16/21 06/16/21 06/16/21 05:30 11:46 17:03 WBC RBC Hgb Hct MCV MCH RDW Plt Count Lymph % (Auto) [place] % (Auto) Lymph # (Auto) [place] # (Auto) Seg Neutrophils % Seg Neuts % (Manual) Lymphocytes % (Manual) Monocytes % (Manual) Basophils % (Manual) Seg Neutrophils # Seg Neutrophils # Man Lymphocytes # (Manual) Monocytes # (Manual) PT INR APTT Fibrinogen D-Dimer ABG pH 7.475 H POC ABG pCO2 POC ABG pO2 ABG pO2 171.8 H ABG HCO3 ABG O2 Saturation 99.1 H ABG Base Excess ABG Hemoglobin 11.7 L ABG Oxyhemoglobin Oxyhemoglobin Sodium Potassium Chloride Carbon Dioxide BUN Creatinine Glucose POC Glucose 309 H 345 H Lactic Acid Calcium Phosphorus Magnesium AST ALT Alkaline Phosphatase C-Reactive Protein Total Protein Albumin Triglycerides Ur Specific [place] Urine Creatinine Crossmatch 06/16/21 06/16/21 06/17/21 20:18 23:22 04:50 WBC RBC Hgb Hct MCV MCH RDW Plt Count Lymph % (Auto) [place] % (Auto) Lymph # (Auto) [place] # (Auto) Seg Neutrophils % Seg Neuts % (Manual) Lymphocytes % (Manual) Monocytes % (Manual) Basophils % (Manual) Seg Neutrophils # Seg Neutrophils # Man Lymphocytes # (Manual) Monocytes # (Manual) PT INR APTT Fibrinogen D-Dimer ABG pH 7.479 H POC ABG pCO2 POC ABG pO2 ABG pO2 143.1 H ABG HCO3 ABG O2 Saturation ABG Base Excess ABG Hemoglobin 10.0 L ABG Oxyhemoglobin Oxyhemoglobin Sodium Potassium Chloride Carbon Dioxide BUN Creatinine Glucose POC Glucose 325 H 315 H Lactic Acid Calcium Phosphorus Magnesium AST ALT Alkaline Phosphatase C-Reactive Protein Total Protein Albumin Triglycerides Ur Specific [place] Urine Creatinine Crossmatch 06/17/21 06/17/21 06/17/21 05:18 05:30 05:30 WBC RBC 3.17 L Hgb 8.2 L Hct 25.5 L MCV MCH 26 L RDW 21.2 H Plt Count 128 L Lymph % (Auto) [place] % (Auto) Lymph # (Auto) [place] # (Auto) Seg Neutrophils % Seg Neuts % (Manual) Lymphocytes % (Manual) Monocytes % (Manual) Basophils % (Manual) Seg Neutrophils # Seg Neutrophils # Man Lymphocytes # (Manual) Monocytes # (Manual) PT INR APTT Fibrinogen D-Dimer ABG pH POC ABG pCO2 POC ABG pO2 ABG pO2 ABG HCO3 ABG O2 Saturation ABG Base Excess ABG Hemoglobin ABG Oxyhemoglobin Oxyhemoglobin Sodium 148 H Potassium Chloride 113.7 H Carbon Dioxide 20 L BUN 57 H Creatinine 1.4 H Glucose 351 H POC Glucose 324 H Lactic Acid Calcium 8.0 L Phosphorus 2.30 L Magnesium AST ALT Alkaline Phosphatase C-Reactive Protein Total Protein Albumin Triglycerides Ur Specific [place] Urine Creatinine Crossmatch 06/17/21 06/17/21 06/17/21 11:49 17:43 21:42 WBC RBC Hgb Hct MCV MCH RDW Plt Count Lymph % (Auto) [place] % (Auto) Lymph # (Auto) [place] # (Auto) Seg Neutrophils % Seg Neuts % (Manual) Lymphocytes % (Manual) Monocytes % (Manual) Basophils % (Manual) Seg Neutrophils # Seg Neutrophils # Man Lymphocytes # (Manual) Monocytes # (Manual) PT INR APTT Fibrinogen D-Dimer ABG pH POC ABG pCO2 POC ABG pO2 ABG pO2 ABG HCO3 ABG O2 Saturation ABG Base Excess ABG Hemoglobin ABG Oxyhemoglobin Oxyhemoglobin Sodium Potassium Chloride Carbon Dioxide BUN Creatinine Glucose POC Glucose 305 H 307 H 286 H Lactic Acid Calcium Phosphorus Magnesium AST ALT Alkaline Phosphatase C-Reactive Protein Total Protein Albumin Triglycerides Ur Specific [place] Urine Creatinine Crossmatch 06/17/21 06/18/21 06/18/21 23:59 04:20 04:37 WBC RBC 3.53 L Hgb 9.1 L Hct 28.7 L MCV MCH 26 L RDW 21.3 H Plt Count Lymph % (Auto) [place] % (Auto) Lymph # (Auto) [place] # (Auto) Seg Neutrophils % Seg Neuts % (Manual) Lymphocytes % (Manual) Monocytes % (Manual) Basophils % (Manual) Seg Neutrophils # Seg Neutrophils # Man Lymphocytes # (Manual) Monocytes # (Manual) PT INR APTT Fibrinogen D-Dimer ABG pH 7.495 H POC ABG pCO2 POC ABG pO2 ABG pO2 108.3 H ABG HCO3 ABG O2 Saturation ABG Base Excess -2.1 L ABG Hemoglobin 10.0 L ABG Oxyhemoglobin Oxyhemoglobin Sodium Potassium Chloride Carbon Dioxide BUN Creatinine Glucose POC Glucose 264 H Lactic Acid Calcium Phosphorus Magnesium AST ALT Alkaline Phosphatase C-Reactive Protein Total Protein Albumin Triglycerides Ur Specific [place] Urine Creatinine Crossmatch 06/18/21 06/18/21 06/18/21 04:37 05:32 11:21 WBC RBC Hgb Hct MCV MCH RDW Plt Count Lymph % (Auto) [place] % (Auto) Lymph # (Auto) [place] # (Auto) Seg Neutrophils % Seg Neuts % (Manual) Lymphocytes % (Manual) Monocytes % (Manual) Basophils % (Manual) Seg Neutrophils # Seg Neutrophils # Man Lymphocytes # (Manual) Monocytes # (Manual) PT INR APTT Fibrinogen D-Dimer ABG pH POC ABG pCO2 POC ABG pO2 ABG pO2 ABG HCO3 ABG O2 Saturation ABG Base Excess ABG Hemoglobin ABG Oxyhemoglobin Oxyhemoglobin Sodium 148 H Potassium Chloride 114.7 H Carbon Dioxide BUN 59 H Creatinine 1.3 H Glucose 329 H POC Glucose 293 H 291 H Lactic Acid Calcium 8.1 L Phosphorus Magnesium AST ALT Alkaline Phosphatase C-Reactive Protein Total Protein Albumin Triglycerides Ur Specific [place] Urine Creatinine Crossmatch 06/18/21 06/18/21 06/19/21 18:21 21:46 00:15 WBC RBC Hgb Hct MCV MCH RDW Plt Count Lymph % (Auto) [place] % (Auto) Lymph # (Auto) [place] # (Auto) Seg Neutrophils % Seg Neuts % (Manual) Lymphocytes % (Manual) Monocytes % (Manual) Basophils % (Manual) Seg Neutrophils # Seg Neutrophils # Man Lymphocytes # (Manual) Monocytes # (Manual) PT INR APTT Fibrinogen D-Dimer ABG pH POC ABG pCO2 POC ABG pO2 ABG pO2 ABG HCO3 ABG O2 Saturation ABG Base Excess ABG Hemoglobin ABG Oxyhemoglobin Oxyhemoglobin Sodium Potassium Chloride Carbon Dioxide BUN Creatinine Glucose POC Glucose 239 H 259 H 310 H Lactic Acid Calcium Phosphorus Magnesium AST ALT Alkaline Phosphatase C-Reactive Protein Total Protein Albumin Triglycerides Ur Specific [place] Urine Creatinine Crossmatch 06/19/21 06/19/21 06/19/21 04:00 04:00 04:50 WBC RBC 3.64 L Hgb 9.1 L Hct 29.1 L MCV MCH 25 L RDW 21.5 H Plt Count Lymph % (Auto) [place] % (Auto) Lymph # (Auto) [place] # (Auto) Seg Neutrophils % Seg Neuts % (Manual) Lymphocytes % (Manual) Monocytes % (Manual) Basophils % (Manual) Seg Neutrophils # Seg Neutrophils # Man Lymphocytes # (Manual) Monocytes # (Manual) PT INR APTT Fibrinogen D-Dimer ABG pH POC ABG pCO2 POC ABG pO2 ABG pO2 78.9 L ABG HCO3 ABG O2 Saturation ABG Base Excess -3.2 L ABG Hemoglobin 7.6 L ABG Oxyhemoglobin Oxyhemoglobin Sodium 148 H Potassium Chloride 114.9 H Carbon Dioxide 19 L BUN 59 H Creatinine Glucose 345 H POC Glucose Lactic Acid Calcium 8.1 L Phosphorus 4.60 H D Magnesium 2.40 H AST ALT Alkaline Phosphatase C-Reactive Protein Total Protein Albumin Triglycerides Ur Specific [place] Urine Creatinine Crossmatch 06/19/21 06/19/21 06/19/21 06:28 11:11 17:20 WBC RBC Hgb Hct MCV MCH RDW Plt Count Lymph % (Auto) [place] % (Auto) Lymph # (Auto) [place] # (Auto) Seg Neutrophils % Seg Neuts % (Manual) Lymphocytes % (Manual) Monocytes % (Manual) Basophils % (Manual) Seg Neutrophils # Seg Neutrophils # Man Lymphocytes # (Manual) Monocytes # (Manual) PT 29.7 H INR 2.57 H APTT Fibrinogen D-Dimer ABG pH POC ABG pCO2 POC ABG pO2 ABG pO2 ABG HCO3 ABG O2 Saturation ABG Base Excess ABG Hemoglobin ABG Oxyhemoglobin Oxyhemoglobin Sodium Potassium Chloride Carbon Dioxide BUN Creatinine Glucose POC Glucose 279 H 275 H Lactic Acid Calcium Phosphorus Magnesium AST ALT Alkaline Phosphatase C-Reactive Protein Total Protein Albumin Triglycerides Ur Specific [place] Urine Creatinine Crossmatch 06/19/21 06/19/21 06/19/21 18:30 19:20 23:27 WBC RBC Hgb 8.0 L Hct 25.0 L MCV MCH RDW Plt Count Lymph % (Auto) [place] % (Auto) Lymph # (Auto) [place] # (Auto) Seg Neutrophils % Seg Neuts % (Manual) Lymphocytes % (Manual) Monocytes % (Manual) Basophils % (Manual) Seg Neutrophils # Seg Neutrophils # Man Lymphocytes # (Manual) Monocytes # (Manual) PT INR APTT Fibrinogen D-Dimer ABG pH POC ABG pCO2 POC ABG pO2 ABG pO2 ABG HCO3 ABG O2 Saturation ABG Base Excess ABG Hemoglobin ABG Oxyhemoglobin Oxyhemoglobin Sodium Potassium Chloride Carbon Dioxide BUN Creatinine Glucose POC Glucose 279 H 290 H Lactic Acid Calcium Phosphorus Magnesium AST ALT Alkaline Phosphatase C-Reactive Protein Total Protein Albumin Triglycerides Ur Specific [place] Urine Creatinine Crossmatch 06/20/21 06/20/21 06/20/21 00:00 04:33 04:33 WBC 22.3 H RBC 3.31 L Hgb 7.4 L 8.5 L Hct 22.5 L 26.5 L MCV MCH 26 L RDW 21.5 H Plt Count Lymph % (Auto) [place] % (Auto) Lymph # (Auto) [place] # (Auto) Seg Neutrophils % Seg Neuts % (Manual) Lymphocytes % (Manual) Monocytes % (Manual) Basophils % (Manual) Seg Neutrophils # Seg Neutrophils # Man Lymphocytes # (Manual) Monocytes # (Manual) PT INR APTT Fibrinogen D-Dimer ABG pH POC ABG pCO2 POC ABG pO2 ABG pO2 ABG HCO3 ABG O2 Saturation ABG Base Excess ABG Hemoglobin ABG Oxyhemoglobin Oxyhemoglobin Sodium 148 H Potassium Chloride 114.2 H Carbon Dioxide BUN 70 H Creatinine 1.4 H Glucose 313 H POC Glucose Lactic Acid Calcium 8.2 L Phosphorus Magnesium 2.50 H AST ALT Alkaline Phosphatase C-Reactive Protein Total Protein Albumin Triglycerides Ur Specific [place] Urine Creatinine Crossmatch 06/20/21 06/20/21 06/20/21 04:33 05:27 11:21 WBC RBC Hgb Hct MCV MCH RDW Plt Count Lymph % (Auto) [place] % (Auto) Lymph # (Auto) [place] # (Auto) Seg Neutrophils % Seg Neuts % (Manual) Lymphocytes % (Manual) Monocytes % (Manual) Basophils % (Manual) Seg Neutrophils # Seg Neutrophils # Man Lymphocytes # (Manual) Monocytes # (Manual) PT 18.3 H INR 1.37 H APTT Fibrinogen D-Dimer ABG pH POC ABG pCO2 POC ABG pO2 ABG pO2 ABG HCO3 ABG O2 Saturation ABG Base Excess ABG Hemoglobin ABG Oxyhemoglobin Oxyhemoglobin Sodium Potassium Chloride Carbon Dioxide BUN Creatinine Glucose POC Glucose 288 H 306 H Lactic Acid Calcium Phosphorus Magnesium AST ALT Alkaline Phosphatase C-Reactive Protein Total Protein Albumin Triglycerides Ur Specific [place] Urine Creatinine Crossmatch 06/20/21 06/20/21 06/20/21 12:23 15:56 18:20 WBC RBC Hgb 8.2 L 8.1 L Hct 25.9 L 25.5 L MCV MCH RDW Plt Count Lymph % (Auto) [place] % (Auto) Lymph # (Auto) [place] # (Auto) Seg Neutrophils % Seg Neuts % (Manual) Lymphocytes % (Manual) Monocytes % (Manual) Basophils % (Manual) Seg Neutrophils # Seg Neutrophils # Man Lymphocytes # (Manual) Monocytes # (Manual) PT INR APTT Fibrinogen D-Dimer ABG pH POC ABG pCO2 POC ABG pO2 ABG pO2 ABG HCO3 ABG O2 Saturation ABG Base Excess ABG Hemoglobin ABG Oxyhemoglobin Oxyhemoglobin Sodium Potassium Chloride Carbon Dioxide BUN Creatinine Glucose POC Glucose 293 H Lactic Acid Calcium Phosphorus Magnesium AST ALT Alkaline Phosphatase C-Reactive Protein Total Protein Albumin Triglycerides Ur Specific [place] Urine Creatinine Crossmatch 06/20/21 06/21/21 06/21/21 23:11 04:20 04:42 WBC 15.1 H RBC 2.84 L Hgb 7.3 L Hct 23.1 L MCV MCH 26 L RDW 21.5 H Plt Count Lymph % (Auto) 3.5 L [place] % (Auto) 11.7 H Lymph # (Auto) 0.5 L [place] # (Auto) 1.8 H Seg Neutrophils % 84.7 H Seg Neuts % (Manual) Lymphocytes % (Manual) Monocytes % (Manual) Basophils % (Manual) Seg Neutrophils # 12.8 H Seg Neutrophils # Man Lymphocytes # (Manual) Monocytes # (Manual) PT INR APTT Fibrinogen D-Dimer ABG pH POC ABG pCO2 POC ABG pO2 ABG pO2 98.5 H ABG HCO3 ABG O2 Saturation ABG Base Excess ABG Hemoglobin 7.2 L ABG Oxyhemoglobin Oxyhemoglobin Sodium Potassium Chloride Carbon Dioxide BUN Creatinine Glucose POC Glucose 206 H Lactic Acid Calcium Phosphorus Magnesium AST ALT Alkaline Phosphatase C-Reactive Protein Total Protein Albumin Triglycerides Ur Specific [place] Urine Creatinine Crossmatch 06/21/21 06/21/21 06/21/21 04:42 05:08 11:06 WBC RBC Hgb Hct MCV MCH RDW Plt Count Lymph % (Auto) [place] % (Auto) Lymph # (Auto) [place] # (Auto) Seg Neutrophils % Seg Neuts % (Manual) Lymphocytes % (Manual) Monocytes % (Manual) Basophils % (Manual) Seg Neutrophils # Seg Neutrophils # Man Lymphocytes # (Manual) Monocytes # (Manual) PT INR APTT Fibrinogen D-Dimer ABG pH POC ABG pCO2 POC ABG pO2 ABG pO2 ABG HCO3 ABG O2 Saturation ABG Base Excess ABG Hemoglobin ABG Oxyhemoglobin Oxyhemoglobin Sodium 151 H Potassium Chloride 117.2 H Carbon Dioxide 21 L BUN 75 H Creatinine 1.6 H Glucose 216 H POC Glucose 190 H 204 H Lactic Acid Calcium 7.9 L Phosphorus Magnesium 2.60 H AST ALT Alkaline Phosphatase C-Reactive Protein Total Protein Albumin Triglycerides 254 H Ur Specific [place] Urine Creatinine Crossmatch 06/21/21 06/21/21 06/21/21 14:00 16:42 21:52 WBC RBC Hgb 7.1 L 7.2 L Hct 22.0 L 22.1 L MCV MCH RDW Plt Count Lymph % (Auto) [place] % (Auto) Lymph # (Auto) [place] # (Auto) Seg Neutrophils % Seg Neuts % (Manual) Lymphocytes % (Manual) Monocytes % (Manual) Basophils % (Manual) Seg Neutrophils # Seg Neutrophils # Man Lymphocytes # (Manual) Monocytes # (Manual) PT INR APTT Fibrinogen D-Dimer ABG pH POC ABG pCO2 POC ABG pO2 ABG pO2 ABG HCO3 ABG O2 Saturation ABG Base Excess ABG Hemoglobin ABG Oxyhemoglobin Oxyhemoglobin Sodium Potassium Chloride Carbon Dioxide BUN Creatinine Glucose POC Glucose 207 H Lactic Acid Calcium Phosphorus Magnesium AST ALT Alkaline Phosphatase C-Reactive Protein Total Protein Albumin Triglycerides Ur Specific [place] Urine Creatinine Crossmatch 06/21/21 06/22/21 06/22/21 23:29 04:30 04:30 WBC 16.8 H RBC 2.93 L Hgb 7.4 L Hct 23.9 L MCV MCH 25 L RDW 21.8 H Plt Count Lymph % (Auto) [place] % (Auto) Lymph # (Auto) [place] # (Auto) Seg Neutrophils % Seg Neuts % (Manual) Lymphocytes % (Manual) Monocytes % (Manual) Basophils % (Manual) Seg Neutrophils # Seg Neutrophils # Man Lymphocytes # (Manual) Monocytes # (Manual) PT INR APTT Fibrinogen D-Dimer ABG pH POC ABG pCO2 POC ABG pO2 ABG pO2 ABG HCO3 ABG O2 Saturation ABG Base Excess ABG Hemoglobin ABG Oxyhemoglobin Oxyhemoglobin Sodium 151 H Potassium Chloride 118.7 H Carbon Dioxide BUN 57 H Creatinine Glucose 238 H POC Glucose 273 H Lactic Acid Calcium 8.0 L Phosphorus Magnesium 2.70 H AST ALT Alkaline Phosphatase C-Reactive Protein Total Protein Albumin Triglycerides Ur Specific [place] Urine Creatinine Crossmatch 06/22/21 06/22/21 06/22/21 05:17 11:31 14:20 WBC RBC Hgb 7.4 L Hct 22.5 L MCV MCH RDW Plt Count Lymph % (Auto) [place] % (Auto) Lymph # (Auto) [place] # (Auto) Seg Neutrophils % Seg Neuts % (Manual) Lymphocytes % (Manual) Monocytes % (Manual) Basophils % (Manual) Seg Neutrophils # Seg Neutrophils # Man Lymphocytes # (Manual) Monocytes # (Manual) PT INR APTT Fibrinogen D-Dimer ABG pH POC ABG pCO2 POC ABG pO2 ABG pO2 ABG HCO3 ABG O2 Saturation ABG Base Excess ABG Hemoglobin ABG Oxyhemoglobin Oxyhemoglobin Sodium Potassium Chloride Carbon Dioxide BUN Creatinine Glucose POC Glucose 214 H 214 H Lactic Acid Calcium Phosphorus Magnesium AST ALT Alkaline Phosphatase C-Reactive Protein Total Protein Albumin Triglycerides Ur Specific [place] Urine Creatinine Crossmatch 06/22/21 06/22/21 06/23/21 17:18 23:47 05:33 WBC RBC Hgb Hct MCV MCH RDW Plt Count Lymph % (Auto) [place] % (Auto) Lymph # (Auto) [place] # (Auto) Seg Neutrophils % Seg Neuts % (Manual) Lymphocytes % (Manual) Monocytes % (Manual) Basophils % (Manual) Seg Neutrophils # Seg Neutrophils # Man Lymphocytes # (Manual) Monocytes # (Manual) PT INR APTT Fibrinogen D-Dimer ABG pH POC ABG pCO2 POC ABG pO2 ABG pO2 ABG HCO3 ABG O2 Saturation ABG Base Excess ABG Hemoglobin ABG Oxyhemoglobin Oxyhemoglobin Sodium Potassium Chloride Carbon Dioxide BUN Creatinine Glucose POC Glucose 238 H 227 H 202 H Lactic Acid Calcium Phosphorus Magnesium AST ALT Alkaline Phosphatase C-Reactive Protein Total Protein Albumin Triglycerides Ur Specific [place] Urine Creatinine Crossmatch 06/23/21 06/23/21 06/23/21 10:04 10:04 11:06 WBC 20.3 H RBC 2.71 L Hgb 7.3 L Hct 21.8 L MCV MCH 27 L RDW 22.1 H Plt Count Lymph % (Auto) [place] % (Auto) Lymph # (Auto) [place] # (Auto) Seg Neutrophils % Seg Neuts % (Manual) Lymphocytes % (Manual) Monocytes % (Manual) Basophils % (Manual) Seg Neutrophils # Seg Neutrophils # Man Lymphocytes # (Manual) Monocytes # (Manual) PT INR APTT Fibrinogen D-Dimer ABG pH POC ABG pCO2 POC ABG pO2 ABG pO2 ABG HCO3 ABG O2 Saturation ABG Base Excess ABG Hemoglobin ABG Oxyhemoglobin Oxyhemoglobin Sodium 151 H Potassium 3.2 L Chloride 116.9 H Carbon Dioxide BUN 40 H Creatinine Glucose 208 H POC Glucose 204 H Lactic Acid Calcium 8.0 L Phosphorus 1.80 L D Magnesium AST ALT Alkaline Phosphatase C-Reactive Protein Total Protein Albumin Triglycerides Ur Specific [place] Urine Creatinine Crossmatch 06/23/21 06/23/21 06/24/21 16:11 23:47 04:00 WBC 16.9 H RBC 2.49 L Hgb 6.6 L Hct 20.3 L MCV MCH 26 L RDW 22.6 H Plt Count Lymph % (Auto) [place] % (Auto) Lymph # (Auto) [place] # (Auto) Seg Neutrophils % Seg Neuts % (Manual) Lymphocytes % (Manual) Monocytes % (Manual) Basophils % (Manual) Seg Neutrophils # Seg Neutrophils # Man Lymphocytes # (Manual) Monocytes # (Manual) PT INR APTT Fibrinogen D-Dimer ABG pH POC ABG pCO2 POC ABG pO2 ABG pO2 ABG HCO3 ABG O2 Saturation ABG Base Excess ABG Hemoglobin ABG Oxyhemoglobin Oxyhemoglobin Sodium Potassium Chloride Carbon Dioxide BUN Creatinine Glucose POC Glucose 228 H 189 H Lactic Acid Calcium Phosphorus Magnesium AST ALT Alkaline Phosphatase C-Reactive Protein Total Protein Albumin Triglycerides Ur Specific [place] Urine Creatinine Crossmatch 06/24/21 06/24/21 06/24/21 04:00 05:43 06:40 WBC RBC Hgb Hct MCV MCH RDW Plt Count Lymph % (Auto) [place] % (Auto) Lymph # (Auto) [place] # (Auto) Seg Neutrophils % Seg Neuts % (Manual) Lymphocytes % (Manual) Monocytes % (Manual) Basophils % (Manual) Seg Neutrophils # Seg Neutrophils # Man Lymphocytes # (Manual) Monocytes # (Manual) PT INR APTT Fibrinogen D-Dimer ABG pH POC ABG pCO2 POC ABG pO2 ABG pO2 ABG HCO3 ABG O2 Saturation ABG Base Excess ABG Hemoglobin ABG Oxyhemoglobin Oxyhemoglobin Sodium 148 H Potassium 3.2 L Chloride 115.6 H Carbon Dioxide BUN 35 H Creatinine Glucose 153 H POC Glucose 134 H Lactic Acid Calcium 7.9 L Phosphorus 2.40 L D Magnesium AST ALT Alkaline Phosphatase C-Reactive Protein Total Protein Albumin Triglycerides Ur Specific [place] Urine Creatinine Crossmatch See Detail 06/24/21 06/24/21 06/24/21 11:08 16:47 21:49 WBC RBC Hgb Hct MCV MCH RDW Plt Count Lymph % (Auto) [place] % (Auto) Lymph # (Auto) [place] # (Auto) Seg Neutrophils % Seg Neuts % (Manual) Lymphocytes % (Manual) Monocytes % (Manual) Basophils % (Manual) Seg Neutrophils # Seg Neutrophils # Man Lymphocytes # (Manual) Monocytes # (Manual) PT INR APTT Fibrinogen D-Dimer ABG pH POC ABG pCO2 POC ABG pO2 ABG pO2 ABG HCO3 ABG O2 Saturation ABG Base Excess ABG Hemoglobin ABG Oxyhemoglobin Oxyhemoglobin Sodium Potassium Chloride Carbon Dioxide BUN Creatinine Glucose POC Glucose 153 H 201 H 132 H Lactic Acid Calcium Phosphorus Magnesium AST ALT Alkaline Phosphatase C-Reactive Protein Total Protein Albumin Triglycerides Ur Specific [place] Urine Creatinine Crossmatch 06/24/21 06/25/21 06/25/21 23:24 05:30 09:00 WBC RBC Hgb 8.3 L Hct 27.0 L MCV MCH RDW Plt Count Lymph % (Auto) [place] % (Auto) Lymph # (Auto) [place] # (Auto) Seg Neutrophils % Seg Neuts % (Manual) Lymphocytes % (Manual) Monocytes % (Manual) Basophils % (Manual) Seg Neutrophils # Seg Neutrophils # Man Lymphocytes # (Manual) Monocytes # (Manual) PT INR APTT Fibrinogen D-Dimer ABG pH POC ABG pCO2 POC ABG pO2 ABG pO2 ABG HCO3 ABG O2 Saturation ABG Base Excess ABG Hemoglobin ABG Oxyhemoglobin Oxyhemoglobin Sodium Potassium Chloride Carbon Dioxide BUN Creatinine Glucose POC Glucose 170 H 151 H Lactic Acid Calcium Phosphorus Magnesium AST ALT Alkaline Phosphatase C-Reactive Protein Total Protein Albumin Triglycerides Ur Specific [place] Urine Creatinine Crossmatch 06/25/21 06/25/21 06/25/21 11:29 14:24 16:48 WBC RBC Hgb 8.5 L Hct 27.5 L MCV MCH RDW Plt Count Lymph % (Auto) [place] % (Auto) Lymph # (Auto) [place] # (Auto) Seg Neutrophils % Seg Neuts % (Manual) Lymphocytes % (Manual) Monocytes % (Manual) Basophils % (Manual) Seg Neutrophils # Seg Neutrophils # Man Lymphocytes # (Manual) Monocytes # (Manual) PT INR APTT Fibrinogen D-Dimer ABG pH POC ABG pCO2 POC ABG pO2 ABG pO2 ABG HCO3 ABG O2 Saturation ABG Base Excess ABG Hemoglobin ABG Oxyhemoglobin Oxyhemoglobin Sodium Potassium Chloride Carbon Dioxide BUN Creatinine Glucose POC Glucose 189 H 224 H Lactic Acid Calcium Phosphorus Magnesium AST ALT Alkaline Phosphatase C-Reactive Protein Total Protein Albumin Triglycerides Ur Specific [place] Urine Creatinine Crossmatch 06/25/21 06/25/21 06/25/21 23:39 Unknown Unknown WBC 16.5 H RBC 2.90 L Hgb 8.0 L Hct 23.8 L MCV MCH RDW 22.8 H Plt Count Lymph % (Auto) [place] % (Auto) Lymph # (Auto) [place] # (Auto) Seg Neutrophils % Seg Neuts % (Manual) Lymphocytes % (Manual) Monocytes % (Manual) Basophils % (Manual) Seg Neutrophils # Seg Neutrophils # Man Lymphocytes # (Manual) Monocytes # (Manual) PT INR APTT Fibrinogen D-Dimer ABG pH POC ABG pCO2 POC ABG pO2 ABG pO2 ABG HCO3 ABG O2 Saturation ABG Base Excess ABG Hemoglobin ABG Oxyhemoglobin Oxyhemoglobin Sodium 149 H Potassium Chloride 115.6 H Carbon Dioxide BUN 28 H Creatinine Glucose 157 H POC Glucose 187 H Lactic Acid Calcium 8.0 L Phosphorus Magnesium AST ALT Alkaline Phosphatase C-Reactive Protein Total Protein Albumin Triglycerides Ur Specific [place] Urine Creatinine Crossmatch 06/26/21 06/26/21 06/26/21 05:22 05:29 05:29 WBC 16.2 H RBC 3.03 L Hgb 8.0 L Hct 25.1 L MCV MCH 26 L RDW 23.2 H Plt Count Lymph % (Auto) [place] % (Auto) Lymph # (Auto) [place] # (Auto) Seg Neutrophils % Seg Neuts % (Manual) Lymphocytes % (Manual) Monocytes % (Manual) Basophils % (Manual) Seg Neutrophils # Seg Neutrophils # Man Lymphocytes # (Manual) Monocytes # (Manual) PT INR APTT Fibrinogen D-Dimer ABG pH POC ABG pCO2 POC ABG pO2 ABG pO2 ABG HCO3 ABG O2 Saturation ABG Base Excess ABG Hemoglobin ABG Oxyhemoglobin Oxyhemoglobin Sodium 150 H Potassium Chloride 114.8 H Carbon Dioxide BUN 29 H Creatinine Glucose 229 H POC Glucose 211 H Lactic Acid Calcium 8.2 L Phosphorus Magnesium AST ALT Alkaline Phosphatase C-Reactive Protein Total Protein Albumin Triglycerides Ur Specific [place] Urine Creatinine Crossmatch 0206/26/21 06/26/21 11:05 15:59 22:00 WBC RBC Hgb Hct MCV MCH RDW Plt Count Lymph % (Auto) [place] % (Auto) Lymph # (Auto) [place] # (Auto) Seg Neutrophils % Seg Neuts % (Manual) Lymphocytes % (Manual) Monocytes % (Manual) Basophils % (Manual) Seg Neutrophils # Seg Neutrophils # Man Lymphocytes # (Manual) Monocytes # (Manual) PT INR APTT Fibrinogen D-Dimer ABG pH POC ABG pCO2 POC ABG pO2 ABG pO2 ABG HCO3 ABG O2 Saturation ABG Base Excess ABG Hemoglobin ABG Oxyhemoglobin Oxyhemoglobin Sodium Potassium Chloride Carbon Dioxide BUN Creatinine Glucose POC Glucose 213 H 222 H 161 H Lactic Acid Calcium Phosphorus Magnesium AST ALT Alkaline Phosphatase C-Reactive Protein Total Protein Albumin Triglycerides Ur Specific [place] Urine Creatinine Crossmatch 06/26/21 06/27/21 06/27/21 23:24 04:15 04:15 WBC 14.3 H RBC 2.96 L Hgb 8.1 L Hct 24.6 L MCV MCH 27 L RDW 23.0 H Plt Count Lymph % (Auto) [place] % (Auto) Lymph # (Auto) [place] # (Auto) Seg Neutrophils % Seg Neuts % (Manual) Lymphocytes % (Manual) Monocytes % (Manual) Basophils % (Manual) Seg Neutrophils # Seg Neutrophils # Man Lymphocytes # (Manual) Monocytes # (Manual) PT INR APTT Fibrinogen D-Dimer ABG pH POC ABG pCO2 POC ABG pO2 ABG pO2 ABG HCO3 ABG O2 Saturation ABG Base Excess ABG Hemoglobin ABG Oxyhemoglobin Oxyhemoglobin Sodium 150 H Potassium Chloride 113.8 H Carbon Dioxide BUN 26 H Creatinine Glucose 246 H POC Glucose 164 H Lactic Acid Calcium 7.8 L Phosphorus Magnesium AST ALT Alkaline Phosphatase C-Reactive Protein Total Protein Albumin Triglycerides Ur Specific [place] Urine Creatinine Crossmatch 06/27/21 06/27/21 06/27/21 05:44 11:07 16:06 WBC RBC Hgb Hct MCV MCH RDW Plt Count Lymph % (Auto) [place] % (Auto) Lymph # (Auto) [place] # (Auto) Seg Neutrophils % Seg Neuts % (Manual) Lymphocytes % (Manual) Monocytes % (Manual) Basophils % (Manual) Seg Neutrophils # Seg Neutrophils # Man Lymphocytes # (Manual) Monocytes # (Manual) PT INR APTT Fibrinogen D-Dimer ABG pH POC ABG pCO2 POC ABG pO2 ABG pO2 ABG HCO3 ABG O2 Saturation ABG Base Excess ABG Hemoglobin ABG Oxyhemoglobin Oxyhemoglobin Sodium Potassium Chloride Carbon Dioxide BUN Creatinine Glucose POC Glucose 226 H 204 H 224 H Lactic Acid Calcium Phosphorus Magnesium AST ALT Alkaline Phosphatase C-Reactive Protein Total Protein Albumin Triglycerides Ur Specific [place] Urine Creatinine Crossmatch 06/27/21 06/28/21 06/28/21 23:49 04:00 04:00 WBC 15.4 H RBC 3.05 L Hgb 8.2 L Hct 25.0 L MCV MCH 27 L RDW 22.6 H Plt Count Lymph % (Auto) [place] % (Auto) Lymph # (Auto) [place] # (Auto) Seg Neutrophils % Seg Neuts % (Manual) Lymphocytes % (Manual) Monocytes % (Manual) Basophils % (Manual) Seg Neutrophils # Seg Neutrophils # Man Lymphocytes # (Manual) Monocytes # (Manual) PT INR APTT Fibrinogen D-Dimer ABG pH POC ABG pCO2 POC ABG pO2 ABG pO2 ABG HCO3 ABG O2 Saturation ABG Base Excess ABG Hemoglobin ABG Oxyhemoglobin Oxyhemoglobin Sodium 152 H Potassium 3.0 L Chloride 114.9 H Carbon Dioxide BUN 24 H Creatinine Glucose 158 H POC Glucose 195 H Lactic Acid Calcium 8.1 L Phosphorus Magnesium AST ALT Alkaline Phosphatase C-Reactive Protein Total Protein Albumin Triglycerides Ur Specific [place] Urine Creatinine Crossmatch 06/28/21 06/28/21 06/28/21 05:05 11:47 17:21 WBC RBC Hgb Hct MCV MCH RDW Plt Count Lymph % (Auto) [place] % (Auto) Lymph # (Auto) [place] # (Auto) Seg Neutrophils % Seg Neuts % (Manual) Lymphocytes % (Manual) Monocytes % (Manual) Basophils % (Manual) Seg Neutrophils # Seg Neutrophils # Man Lymphocytes # (Manual) Monocytes # (Manual) PT INR APTT Fibrinogen D-Dimer ABG pH POC ABG pCO2 POC ABG pO2 ABG pO2 ABG HCO3 ABG O2 Saturation ABG Base Excess ABG Hemoglobin ABG Oxyhemoglobin Oxyhemoglobin Sodium Potassium Chloride Carbon Dioxide BUN Creatinine Glucose POC Glucose 121 H 164 H 166 H Lactic Acid Calcium Phosphorus Magnesium AST ALT Alkaline Phosphatase C-Reactive Protein Total Protein Albumin Triglycerides Ur Specific [place] Urine Creatinine Crossmatch 06/28/21 06/28/21 06/29/21 18:14 21:54 00:55 WBC RBC Hgb Hct MCV MCH RDW Plt Count Lymph % (Auto) [place] % (Auto) Lymph # (Auto) [place] # (Auto) Seg Neutrophils % Seg Neuts % (Manual) Lymphocytes % (Manual) Monocytes % (Manual) Basophils % (Manual) Seg Neutrophils # Seg Neutrophils # Man Lymphocytes # (Manual) Monocytes # (Manual) PT INR APTT Fibrinogen D-Dimer ABG pH POC ABG pCO2 POC ABG pO2 ABG pO2 ABG HCO3 ABG O2 Saturation ABG Base Excess ABG Hemoglobin ABG Oxyhemoglobin Oxyhemoglobin Sodium Potassium Chloride Carbon Dioxide BUN Creatinine Glucose POC Glucose 150 H 148 H 176 H Lactic Acid Calcium Phosphorus Magnesium AST ALT Alkaline Phosphatase C-Reactive Protein Total Protein Albumin Triglycerides Ur Specific [place] Urine Creatinine Crossmatch 06/29/21 06/29/21 06/29/21 04:00 04:00 05:20 WBC 15.3 H RBC 3.04 L Hgb 8.0 L Hct 25.0 L MCV MCH 26 L RDW 22.3 H Plt Count Lymph % (Auto) [place] % (Auto) Lymph # (Auto) [place] # (Auto) Seg Neutrophils % Seg Neuts % (Manual) Lymphocytes % (Manual) Monocytes % (Manual) Basophils % (Manual) Seg Neutrophils # Seg Neutrophils # Man Lymphocytes # (Manual) Monocytes # (Manual) PT INR APTT Fibrinogen D-Dimer ABG pH POC ABG pCO2 POC ABG pO2 ABG pO2 ABG HCO3 ABG O2 Saturation ABG Base Excess ABG Hemoglobin ABG Oxyhemoglobin Oxyhemoglobin Sodium Potassium 3.1 L Chloride 108.7 H Carbon Dioxide BUN 20 H Creatinine Glucose 194 H POC Glucose 185 H Lactic Acid Calcium 8.0 L Phosphorus Magnesium AST ALT Alkaline Phosphatase C-Reactive Protein Total Protein Albumin Triglycerides Ur Specific [place] Urine Creatinine Crossmatch 06/29/21 06/29/21 06/30/21 12:18 17:20 00:49 WBC RBC Hgb Hct MCV MCH RDW Plt Count Lymph % (Auto) [place] % (Auto) Lymph # (Auto) [place] # (Auto) Seg Neutrophils % Seg Neuts % (Manual) Lymphocytes % (Manual) Monocytes % (Manual) Basophils % (Manual) Seg Neutrophils # Seg Neutrophils # Man Lymphocytes # (Manual) Monocytes # (Manual) PT INR APTT Fibrinogen D-Dimer ABG pH POC ABG pCO2 POC ABG pO2 ABG pO2 ABG HCO3 ABG O2 Saturation ABG Base Excess ABG Hemoglobin ABG Oxyhemoglobin Oxyhemoglobin Sodium Potassium Chloride Carbon Dioxide BUN Creatinine Glucose POC Glucose 135 H 185 H 156 H Lactic Acid Calcium Phosphorus Magnesium AST ALT Alkaline Phosphatase C-Reactive Protein Total Protein Albumin Triglycerides Ur Specific [place] Urine Creatinine Crossmatch 06/30/21 06/30/21 06/30/21 04:25 04:25 08:14 WBC 13.0 H RBC 3.19 L Hgb 8.2 L Hct 26.2 L MCV MCH 26 L RDW 22.3 H Plt Count Lymph % (Auto) [place] % (Auto) Lymph # (Auto) [place] # (Auto) Seg Neutrophils % Seg Neuts % (Manual) 81.0 H Lymphocytes % (Manual) 10.0 L Monocytes % (Manual) 8.0 H Basophils % (Manual) Seg Neutrophils # Seg Neutrophils # Man 10.5 H Lymphocytes # (Manual) Monocytes # (Manual) 1.0 H PT INR APTT Fibrinogen D-Dimer ABG pH POC ABG pCO2 POC ABG pO2 ABG pO2 ABG HCO3 ABG O2 Saturation ABG Base Excess ABG Hemoglobin ABG Oxyhemoglobin Oxyhemoglobin Sodium Potassium 3.0 L Chloride Carbon Dioxide BUN 20 H Creatinine Glucose 104 H POC Glucose 119 H Lactic Acid Calcium 8.3 L Phosphorus Magnesium AST ALT Alkaline Phosphatase C-Reactive Protein Total Protein Albumin Triglycerides Ur Specific [place] Urine Creatinine Crossmatch 06/30/21 06/30/21 06/30/21 11:36 16:24 22:44 WBC RBC Hgb Hct MCV MCH RDW Plt Count Lymph % (Auto) [place] % (Auto) Lymph # (Auto) [place] # (Auto) Seg Neutrophils % Seg Neuts % (Manual) Lymphocytes % (Manual) Monocytes % (Manual) Basophils % (Manual) Seg Neutrophils # Seg Neutrophils # Man Lymphocytes # (Manual) Monocytes # (Manual) PT INR APTT Fibrinogen D-Dimer ABG pH POC ABG pCO2 POC ABG pO2 ABG pO2 ABG HCO3 ABG O2 Saturation ABG Base Excess ABG Hemoglobin ABG Oxyhemoglobin Oxyhemoglobin Sodium Potassium Chloride Carbon Dioxide BUN Creatinine Glucose POC Glucose 154 H 208 H 174 H Lactic Acid Calcium Phosphorus Magnesium AST ALT Alkaline Phosphatase C-Reactive Protein Total Protein Albumin Triglycerides Ur Specific [place] Urine Creatinine Crossmatch 07/01/21 07/01/21 07/01/21 05:29 05:29 05:54 WBC 11.9 H RBC 3.00 L Hgb 8.1 L Hct 24.4 L MCV MCH 27 L RDW 21.7 H Plt Count Lymph % (Auto) [place] % (Auto) Lymph # (Auto) [place] # (Auto) Seg Neutrophils % Seg Neuts % (Manual) Lymphocytes % (Manual) Monocytes % (Manual) Basophils % (Manual) Seg Neutrophils # Seg Neutrophils # Man Lymphocytes # (Manual) Monocytes # (Manual) PT INR APTT Fibrinogen D-Dimer ABG pH POC ABG pCO2 POC ABG pO2 ABG pO2 ABG HCO3 ABG O2 Saturation ABG Base Excess ABG Hemoglobin ABG Oxyhemoglobin Oxyhemoglobin Sodium Potassium Chloride Carbon Dioxide BUN Creatinine Glucose 177 H POC Glucose 170 H Lactic Acid Calcium Phosphorus Magnesium AST ALT Alkaline Phosphatase C-Reactive Protein Total Protein Albumin Triglycerides Ur Specific [place] Urine Creatinine Crossmatch 07/01/21 07/02/21 07/02/21 10:54 05:05 10:18 WBC RBC Hgb Hct MCV MCH RDW Plt Count Lymph % (Auto) [place] % (Auto) Lymph # (Auto) [place] # (Auto) Seg Neutrophils % Seg Neuts % (Manual) Lymphocytes % (Manual) Monocytes % (Manual) Basophils % (Manual) Seg Neutrophils # Seg Neutrophils # Man Lymphocytes # (Manual) Monocytes # (Manual) PT INR APTT Fibrinogen D-Dimer ABG pH 7.488 H POC ABG pCO2 POC ABG pO2 ABG pO2 97.2 H ABG HCO3 27.1 H ABG O2 Saturation ABG Base Excess 3.5 H ABG Hemoglobin 7.9 L ABG Oxyhemoglobin Oxyhemoglobin Sodium Potassium Chloride Carbon Dioxide BUN Creatinine Glucose POC Glucose 184 H 182 H Lactic Acid Calcium Phosphorus Magnesium AST ALT Alkaline Phosphatase C-Reactive Protein Total Protein Albumin Triglycerides Ur Specific [place] Urine Creatinine Crossmatch 07/02/21 07/02/21 07/02/21 12:14 16:18 22:27 WBC RBC Hgb Hct MCV MCH RDW Plt Count Lymph % (Auto) [place] % (Auto) Lymph # (Auto) [place] # (Auto) Seg Neutrophils % Seg Neuts % (Manual) Lymphocytes % (Manual) Monocytes % (Manual) Basophils % (Manual) Seg Neutrophils # Seg Neutrophils # Man Lymphocytes # (Manual) Monocytes # (Manual) PT INR APTT Fibrinogen D-Dimer ABG pH 7.199 L* POC ABG pCO2 POC ABG pO2 ABG pO2 104.5 H ABG HCO3 30.3 H ABG O2 Saturation ABG Base Excess ABG Hemoglobin 9.8 L ABG Oxyhemoglobin Oxyhemoglobin 94.6 L Sodium Potassium Chloride Carbon Dioxide BUN Creatinine Glucose POC Glucose 184 H 194 H Lactic Acid Calcium Phosphorus Magnesium AST ALT Alkaline Phosphatase C-Reactive Protein Total Protein Albumin Triglycerides Ur Specific [place] Urine Creatinine Crossmatch 07/03/21 07/03/21 07/03/21 09:47 10:44 11:24 WBC RBC 3.01 L Hgb 8.3 L Hct 24.3 L MCV MCH RDW 21.7 H Plt Count Lymph % (Auto) 8.4 L [place] % (Auto) Lymph # (Auto) 0.8 L [place] # (Auto) Seg Neutrophils % 80.6 H Seg Neuts % (Manual) Lymphocytes % (Manual) Monocytes % (Manual) Basophils % (Manual) Seg Neutrophils # Seg Neutrophils # Man Lymphocytes # (Manual) Monocytes # (Manual) PT INR APTT Fibrinogen D-Dimer ABG pH POC ABG pCO2 POC ABG pO2 ABG pO2 ABG HCO3 ABG O2 Saturation ABG Base Excess ABG Hemoglobin ABG Oxyhemoglobin Oxyhemoglobin Sodium Potassium 3.0 L Chloride Carbon Dioxide BUN Creatinine Glucose 200 H POC Glucose 180 H Lactic Acid Calcium 8.3 L Phosphorus Magnesium AST ALT Alkaline Phosphatase C-Reactive Protein Total Protein Albumin Triglycerides Ur Specific [place] Urine Creatinine Crossmatch 07/03/21 07/03/21 07/03/21 16:34 22:14 22:15 WBC RBC Hgb Hct MCV MCH RDW Plt Count Lymph % (Auto) [place] % (Auto) Lymph # (Auto) [place] # (Auto) Seg Neutrophils % Seg Neuts % (Manual) Lymphocytes % (Manual) Monocytes % (Manual) Basophils % (Manual) Seg Neutrophils # Seg Neutrophils # Man Lymphocytes # (Manual) Monocytes # (Manual) PT INR APTT Fibrinogen D-Dimer ABG pH POC ABG pCO2 POC ABG pO2 ABG pO2 ABG HCO3 ABG O2 Saturation ABG Base Excess ABG Hemoglobin ABG Oxyhemoglobin Oxyhemoglobin Sodium Potassium Chloride Carbon Dioxide BUN Creatinine Glucose POC Glucose 165 H 174 H 180 H Lactic Acid Calcium Phosphorus Magnesium AST ALT Alkaline Phosphatase C-Reactive Protein Total Protein Albumin Triglycerides Ur Specific [place] Urine Creatinine Crossmatch 07/04/21 07/04/21 07/04/21 00:28 01:44 05:07 WBC RBC Hgb Hct MCV MCH RDW Plt Count Lymph % (Auto) [place] % (Auto) Lymph # (Auto) [place] # (Auto) Seg Neutrophils % Seg Neuts % (Manual) Lymphocytes % (Manual) Monocytes % (Manual) Basophils % (Manual) Seg Neutrophils # Seg Neutrophils # Man Lymphocytes # (Manual) Monocytes # (Manual) PT INR APTT Fibrinogen D-Dimer ABG pH POC ABG pCO2 POC ABG pO2 ABG pO2 107.7 H ABG HCO3 26.7 H ABG O2 Saturation ABG Base Excess ABG Hemoglobin 7.5 L ABG Oxyhemoglobin Oxyhemoglobin Sodium Potassium Chloride Carbon Dioxide BUN Creatinine Glucose POC Glucose 246 H 179 H Lactic Acid Calcium Phosphorus Magnesium AST ALT Alkaline Phosphatase C-Reactive Protein Total Protein Albumin Triglycerides Ur Specific [place] Urine Creatinine Crossmatch 07/04/21 07/04/21 07/04/21 05:13 05:13 10:52 WBC RBC 3.12 L Hgb 8.5 L Hct 25.2 L MCV MCH 27 L RDW 21.3 H Plt Count Lymph % (Auto) 6.1 L [place] % (Auto) Lymph # (Auto) 0.6 L [place] # (Auto) Seg Neutrophils % 85.0 H Seg Neuts % (Manual) Lymphocytes % (Manual) Monocytes % (Manual) Basophils % (Manual) Seg Neutrophils # 8.0 H Seg Neutrophils # Man Lymphocytes # (Manual) Monocytes # (Manual) PT INR APTT Fibrinogen D-Dimer ABG pH POC ABG pCO2 POC ABG pO2 ABG pO2 ABG HCO3 ABG O2 Saturation ABG Base Excess ABG Hemoglobin ABG Oxyhemoglobin Oxyhemoglobin Sodium Potassium 3.4 L Chloride Carbon Dioxide BUN Creatinine Glucose 205 H POC Glucose 146 H Lactic Acid Calcium Phosphorus Magnesium AST ALT Alkaline Phosphatase C-Reactive Protein Total Protein Albumin Triglycerides Ur Specific [place] Urine Creatinine Crossmatch 07/04/21 07/04/21 07/05/21 16:22 23:52 04:38 WBC RBC Hgb Hct MCV MCH RDW Plt Count Lymph % (Auto) [place] % (Auto) Lymph # (Auto) [place] # (Auto) Seg Neutrophils % Seg Neuts % (Manual) Lymphocytes % (Manual) Monocytes % (Manual) Basophils % (Manual) Seg Neutrophils # Seg Neutrophils # Man Lymphocytes # (Manual) Monocytes # (Manual) PT INR APTT Fibrinogen D-Dimer ABG pH POC ABG pCO2 POC ABG pO2 ABG pO2 ABG HCO3 ABG O2 Saturation ABG Base Excess ABG Hemoglobin ABG Oxyhemoglobin Oxyhemoglobin Sodium Potassium 3.0 L Chloride Carbon Dioxide BUN 18 H Creatinine Glucose 174 H POC Glucose 154 H 193 H Lactic Acid Calcium Phosphorus 2.20 L Magnesium AST ALT Alkaline Phosphatase C-Reactive Protein Total Protein Albumin Triglycerides Ur Specific [place] Urine Creatinine Crossmatch 07/05/21 07/05/21 07/05/21 04:38 05:15 12:35 WBC RBC 2.95 L Hgb 7.8 L Hct 23.9 L MCV MCH 27 L RDW 21.0 H Plt Count Lymph % (Auto) [place] % (Auto) Lymph # (Auto) [place] # (Auto) Seg Neutrophils % Seg Neuts % (Manual) Lymphocytes % (Manual) Monocytes % (Manual) Basophils % (Manual) Seg Neutrophils # Seg Neutrophils # Man Lymphocytes # (Manual) Monocytes # (Manual) PT INR APTT Fibrinogen D-Dimer ABG pH POC ABG pCO2 POC ABG pO2 ABG pO2 ABG HCO3 ABG O2 Saturation ABG Base Excess ABG Hemoglobin ABG Oxyhemoglobin Oxyhemoglobin Sodium Potassium Chloride Carbon Dioxide BUN Creatinine Glucose POC Glucose 163 H 121 H Lactic Acid Calcium Phosphorus Magnesium AST ALT Alkaline Phosphatase C-Reactive Protein Total Protein Albumin Triglycerides Ur Specific [place] Urine Creatinine Crossmatch 07/05/21 07/05/21 07/05/21 18:27 21:05 23:11 WBC RBC Hgb Hct MCV MCH RDW Plt Count Lymph % (Auto) [place] % (Auto) Lymph # (Auto) [place] # (Auto) Seg Neutrophils % Seg Neuts % (Manual) Lymphocytes % (Manual) Monocytes % (Manual) Basophils % (Manual) Seg Neutrophils # Seg Neutrophils # Man Lymphocytes # (Manual) Monocytes # (Manual) PT INR APTT Fibrinogen D-Dimer ABG pH POC ABG pCO2 POC ABG pO2 ABG pO2 ABG HCO3 ABG O2 Saturation ABG Base Excess ABG Hemoglobin ABG Oxyhemoglobin Oxyhemoglobin Sodium Potassium Chloride Carbon Dioxide BUN Creatinine Glucose POC Glucose 183 H 170 H 184 H Lactic Acid Calcium Phosphorus Magnesium AST ALT Alkaline Phosphatase C-Reactive Protein Total Protein Albumin Triglycerides Ur Specific [place] Urine Creatinine Crossmatch 07/06/21 07/06/21 07/06/21 04:39 05:13 12:12 WBC RBC Hgb Hct MCV MCH RDW Plt Count Lymph % (Auto) [place] % (Auto) Lymph # (Auto) [place] # (Auto) Seg Neutrophils % Seg Neuts % (Manual) Lymphocytes % (Manual) Monocytes % (Manual) Basophils % (Manual) Seg Neutrophils # Seg Neutrophils # Man Lymphocytes # (Manual) Monocytes # (Manual) PT INR APTT Fibrinogen D-Dimer ABG pH POC ABG pCO2 POC ABG pO2 ABG pO2 ABG HCO3 ABG O2 Saturation ABG Base Excess ABG Hemoglobin ABG Oxyhemoglobin Oxyhemoglobin Sodium Potassium 3.4 L Chloride Carbon Dioxide BUN Creatinine Glucose 180 H POC Glucose 183 H 153 H Lactic Acid Calcium Phosphorus Magnesium AST ALT Alkaline Phosphatase C-Reactive Protein Total Protein Albumin Triglycerides Ur Specific [place] Urine Creatinine Crossmatch 07/06/21 07/06/21 07/07/21 17:30 21:44 00:22 WBC RBC Hgb Hct MCV MCH RDW Plt Count Lymph % (Auto) [place] % (Auto) Lymph # (Auto) [place] # (Auto) Seg Neutrophils % Seg Neuts % (Manual) Lymphocytes % (Manual) Monocytes % (Manual) Basophils % (Manual) Seg Neutrophils # Seg Neutrophils # Man Lymphocytes # (Manual) Monocytes # (Manual) PT INR APTT Fibrinogen D-Dimer ABG pH POC ABG pCO2 POC ABG pO2 ABG pO2 ABG HCO3 ABG O2 Saturation ABG Base Excess ABG Hemoglobin ABG Oxyhemoglobin Oxyhemoglobin Sodium Potassium Chloride Carbon Dioxide BUN Creatinine Glucose POC Glucose 166 H 155 H 188 H Lactic Acid Calcium Phosphorus Magnesium AST ALT Alkaline Phosphatase C-Reactive Protein Total Protein Albumin Triglycerides Ur Specific [place] Urine Creatinine Crossmatch 07/07/21 07/07/21 07/07/21 04:10 05:48 07:39 WBC RBC Hgb Hct MCV MCH RDW Plt Count Lymph % (Auto) [place] % (Auto) Lymph # (Auto) [place] # (Auto) Seg Neutrophils % Seg Neuts % (Manual) Lymphocytes % (Manual) Monocytes % (Manual) Basophils % (Manual) Seg Neutrophils # Seg Neutrophils # Man Lymphocytes # (Manual) Monocytes # (Manual) PT INR APTT Fibrinogen D-Dimer ABG pH POC ABG pCO2 POC ABG pO2 ABG pO2 ABG HCO3 ABG O2 Saturation ABG Base Excess ABG Hemoglobin ABG Oxyhemoglobin Oxyhemoglobin Sodium Potassium 3.1 L Chloride Carbon Dioxide BUN Creatinine Glucose 138 H POC Glucose 141 H 147 H Lactic Acid Calcium Phosphorus 2.40 L Magnesium AST ALT Alkaline Phosphatase C-Reactive Protein Total Protein Albumin Triglycerides Ur Specific [place] Urine Creatinine Crossmatch 07/07/21 07/07/21 07/07/21 11:17 16:06 23:58 WBC RBC Hgb Hct MCV MCH RDW Plt Count Lymph % (Auto) [place] % (Auto) Lymph # (Auto) [place] # (Auto) Seg Neutrophils % Seg Neuts % (Manual) Lymphocytes % (Manual) Monocytes % (Manual) Basophils % (Manual) Seg Neutrophils # Seg Neutrophils # Man Lymphocytes # (Manual) Monocytes # (Manual) PT INR APTT Fibrinogen D-Dimer ABG pH POC ABG pCO2 POC ABG pO2 ABG pO2 ABG HCO3 ABG O2 Saturation ABG Base Excess ABG Hemoglobin ABG Oxyhemoglobin Oxyhemoglobin Sodium Potassium Chloride Carbon Dioxide BUN Creatinine Glucose POC Glucose 161 H 173 H 198 H Lactic Acid Calcium Phosphorus Magnesium AST ALT Alkaline Phosphatase C-Reactive Protein Total Protein Albumin Triglycerides Ur Specific [place] Urine Creatinine Crossmatch 07/08/21 07/08/21 07/08/21 04:20 04:20 06:12 WBC RBC 3.16 L Hgb 8.3 L Hct 25.1 L MCV MCH 26 L RDW 21.0 H Plt Count Lymph % (Auto) [place] % (Auto) Lymph # (Auto) [place] # (Auto) Seg Neutrophils % Seg Neuts % (Manual) Lymphocytes % (Manual) Monocytes % (Manual) Basophils % (Manual) Seg Neutrophils # Seg Neutrophils # Man Lymphocytes # (Manual) Monocytes # (Manual) PT INR APTT Fibrinogen D-Dimer ABG pH POC ABG pCO2 POC ABG pO2 ABG pO2 ABG HCO3 ABG O2 Saturation ABG Base Excess ABG Hemoglobin ABG Oxyhemoglobin Oxyhemoglobin Sodium Potassium Chloride Carbon Dioxide BUN Creatinine Glucose 183 H POC Glucose 189 H Lactic Acid Calcium Phosphorus Magnesium AST ALT Alkaline Phosphatase C-Reactive Protein Total Protein Albumin Triglycerides Ur Specific [place] Urine Creatinine Crossmatch 07/08/21 07/08/21 07/08/21 11:33 18:04 21:42 WBC RBC Hgb Hct MCV MCH RDW Plt Count Lymph % (Auto) [place] % (Auto) Lymph # (Auto) [place] # (Auto) Seg Neutrophils % Seg Neuts % (Manual) Lymphocytes % (Manual) Monocytes % (Manual) Basophils % (Manual) Seg Neutrophils # Seg Neutrophils # Man Lymphocytes # (Manual) Monocytes # (Manual) PT INR APTT Fibrinogen D-Dimer ABG pH POC ABG pCO2 POC ABG pO2 ABG pO2 ABG HCO3 ABG O2 Saturation ABG Base Excess ABG Hemoglobin ABG Oxyhemoglobin Oxyhemoglobin Sodium Potassium Chloride Carbon Dioxide BUN Creatinine Glucose POC Glucose 161 H 128 H 160 H Lactic Acid Calcium Phosphorus Magnesium AST ALT Alkaline Phosphatase C-Reactive Protein Total Protein Albumin Triglycerides Ur Specific [place] Urine Creatinine Crossmatch 07/09/21 07/09/21 07/09/21 06:03 06:10 06:10 WBC RBC 2.96 L Hgb 7.8 L Hct 23.5 L MCV MCH 27 L RDW 20.9 H Plt Count Lymph % (Auto) [place] % (Auto) Lymph # (Auto) [place] # (Auto) Seg Neutrophils % Seg Neuts % (Manual) Lymphocytes % (Manual) Monocytes % (Manual) Basophils % (Manual) Seg Neutrophils # Seg Neutrophils # Man Lymphocytes # (Manual) Monocytes # (Manual) PT INR APTT Fibrinogen D-Dimer ABG pH POC ABG pCO2 POC ABG pO2 ABG pO2 ABG HCO3 ABG O2 Saturation ABG Base Excess ABG Hemoglobin ABG Oxyhemoglobin Oxyhemoglobin Sodium Potassium Chloride Carbon Dioxide BUN Creatinine Glucose 168 H POC Glucose 174 H Lactic Acid Calcium 8.2 L Phosphorus Magnesium AST ALT Alkaline Phosphatase C-Reactive Protein Total Protein Albumin Triglycerides Ur Specific [place] Urine Creatinine Crossmatch 07/09/21 07/09/21 07/09/21 11:45 18:45 21:33 WBC RBC Hgb Hct MCV MCH RDW Plt Count Lymph % (Auto) [place] % (Auto) Lymph # (Auto) [place] # (Auto) Seg Neutrophils % Seg Neuts % (Manual) Lymphocytes % (Manual) Monocytes % (Manual) Basophils % (Manual) Seg Neutrophils # Seg Neutrophils # Man Lymphocytes # (Manual) Monocytes # (Manual) PT INR APTT Fibrinogen D-Dimer ABG pH POC ABG pCO2 POC ABG pO2 ABG pO2 ABG HCO3 ABG O2 Saturation ABG Base Excess ABG Hemoglobin ABG Oxyhemoglobin Oxyhemoglobin Sodium Potassium Chloride Carbon Dioxide BUN Creatinine Glucose POC Glucose 148 H 187 H 156 H Lactic Acid Calcium Phosphorus Magnesium AST ALT Alkaline Phosphatase C-Reactive Protein Total Protein Albumin Triglycerides Ur Specific [place] Urine Creatinine Crossmatch 07/10/21 07/10/21 07/10/21 00:01 05:24 11:12 WBC RBC Hgb Hct MCV MCH RDW Plt Count Lymph % (Auto) [place] % (Auto) Lymph # (Auto) [place] # (Auto) Seg Neutrophils % Seg Neuts % (Manual) Lymphocytes % (Manual) Monocytes % (Manual) Basophils % (Manual) Seg Neutrophils # Seg Neutrophils # Man Lymphocytes # (Manual) Monocytes # (Manual) PT INR APTT Fibrinogen D-Dimer ABG pH POC ABG pCO2 POC ABG pO2 ABG pO2 ABG HCO3 ABG O2 Saturation ABG Base Excess ABG Hemoglobin ABG Oxyhemoglobin Oxyhemoglobin Sodium Potassium Chloride Carbon Dioxide BUN Creatinine Glucose POC Glucose 191 H 203 H 174 H Lactic Acid Calcium Phosphorus Magnesium AST ALT Alkaline Phosphatase C-Reactive Protein Total Protein Albumin Triglycerides Ur Specific [place] Urine Creatinine Crossmatch 07/10/21 07/10/21 07/10/21 15:56 20:58 23:54 WBC RBC Hgb Hct MCV MCH RDW Plt Count Lymph % (Auto) [place] % (Auto) Lymph # (Auto) [place] # (Auto) Seg Neutrophils % Seg Neuts % (Manual) Lymphocytes % (Manual) Monocytes % (Manual) Basophils % (Manual) Seg Neutrophils # Seg Neutrophils # Man Lymphocytes # (Manual) Monocytes # (Manual) PT INR APTT Fibrinogen D-Dimer ABG pH POC ABG pCO2 POC ABG pO2 ABG pO2 ABG HCO3 ABG O2 Saturation ABG Base Excess ABG Hemoglobin ABG Oxyhemoglobin Oxyhemoglobin Sodium Potassium Chloride Carbon Dioxide BUN Creatinine Glucose POC Glucose 182 H 165 H 196 H Lactic Acid Calcium Phosphorus Magnesium AST ALT Alkaline Phosphatase C-Reactive Protein Total Protein Albumin Triglycerides Ur Specific [place] Urine Creatinine Crossmatch 07/11/21 07/11/21 07/11/21 04:04 04:04 05:34 WBC RBC 3.50 L Hgb 8.7 L Hct 27.6 L MCV MCH 25 L RDW 20.6 H Plt Count Lymph % (Auto) [place] % (Auto) Lymph # (Auto) [place] # (Auto) Seg Neutrophils % Seg Neuts % (Manual) Lymphocytes % (Manual) Monocytes % (Manual) Basophils % (Manual) 2.0 H Seg Neutrophils # Seg Neutrophils # Man Lymphocytes # (Manual) 0.8 L Monocytes # (Manual) PT INR APTT Fibrinogen D-Dimer ABG pH POC ABG pCO2 POC ABG pO2 ABG pO2 ABG HCO3 ABG O2 Saturation ABG Base Excess ABG Hemoglobin ABG Oxyhemoglobin Oxyhemoglobin Sodium Potassium 3.3 L Chloride Carbon Dioxide BUN Creatinine Glucose 199 H POC Glucose 191 H Lactic Acid Calcium Phosphorus Magnesium AST ALT Alkaline Phosphatase C-Reactive Protein Total Protein Albumin Triglycerides Ur Specific [place] Urine Creatinine Crossmatch 07/11/21 07/11/21 07/11/21 11:49 15:57 21:33 WBC RBC Hgb Hct MCV MCH RDW Plt Count Lymph % (Auto) [place] % (Auto) Lymph # (Auto) [place] # (Auto) Seg Neutrophils % Seg Neuts % (Manual) Lymphocytes % (Manual) Monocytes % (Manual) Basophils % (Manual) Seg Neutrophils # Seg Neutrophils # Man Lymphocytes # (Manual) Monocytes # (Manual) PT INR APTT Fibrinogen D-Dimer ABG pH POC ABG pCO2 POC ABG pO2 ABG pO2 ABG HCO3 ABG O2 Saturation ABG Base Excess ABG Hemoglobin ABG Oxyhemoglobin Oxyhemoglobin Sodium Potassium Chloride Carbon Dioxide BUN Creatinine Glucose POC Glucose 195 H 207 H 192 H Lactic Acid Calcium Phosphorus Magnesium AST ALT Alkaline Phosphatase C-Reactive Protein Total Protein Albumin Triglycerides Ur Specific [place] Urine Creatinine Crossmatch 07/12/21 07/12/21 07/12/21 00:04 05:54 11:53 WBC RBC Hgb Hct MCV MCH RDW Plt Count Lymph % (Auto) [place] % (Auto) Lymph # (Auto) [place] # (Auto) Seg Neutrophils % Seg Neuts % (Manual) Lymphocytes % (Manual) Monocytes % (Manual) Basophils % (Manual) Seg Neutrophils # Seg Neutrophils # Man Lymphocytes # (Manual) Monocytes # (Manual) PT INR APTT Fibrinogen D-Dimer ABG pH POC ABG pCO2 POC ABG pO2 ABG pO2 ABG HCO3 ABG O2 Saturation ABG Base Excess ABG Hemoglobin ABG Oxyhemoglobin Oxyhemoglobin Sodium Potassium Chloride Carbon Dioxide BUN Creatinine Glucose POC Glucose 189 H 220 H 209 H Lactic Acid Calcium Phosphorus Magnesium AST ALT Alkaline Phosphatase C-Reactive Protein Total Protein Albumin Triglycerides Ur Specific [place] Urine Creatinine Crossmatch 07/12/21 07/13/21 07/13/21 23:48 05:55 11:36 WBC RBC Hgb Hct MCV MCH RDW Plt Count Lymph % (Auto) [place] % (Auto) Lymph # (Auto) [place] # (Auto) Seg Neutrophils % Seg Neuts % (Manual) Lymphocytes % (Manual) Monocytes % (Manual) Basophils % (Manual) Seg Neutrophils # Seg Neutrophils # Man Lymphocytes # (Manual) Monocytes # (Manual) PT INR APTT Fibrinogen D-Dimer ABG pH POC ABG pCO2 POC ABG pO2 ABG pO2 ABG HCO3 ABG O2 Saturation ABG Base Excess ABG Hemoglobin ABG Oxyhemoglobin Oxyhemoglobin Sodium Potassium Chloride Carbon Dioxide BUN Creatinine Glucose POC Glucose 246 H 158 H 156 H Lactic Acid Calcium Phosphorus Magnesium AST ALT Alkaline Phosphatase C-Reactive Protein Total Protein Albumin Triglycerides Ur Specific [place] Urine Creatinine Crossmatch
[2021-07-13] MEDS: HYDROmorphone 1 MG/1 ML INJ IV PRN ×2 (14:06→21:10)
[2021-07-13] MEDS: traZODone 50 MG TAB PO SCH (21:07)
[2021-07-13] MEDS: SENNOSIDES ORAL LIQD 8.8 MG/5 ML ORAL LIQD PO SCH (21:08)
[2021-07-13] MEDS: MELATONIN 5 MG TAB PO SCH (21:08)
[2021-07-13] MEDS: ENOXAPARIN 40 MG/0.4 ML INJ SUB-Q SCH (21:08)
[2021-07-13] MEDS: INSULIN GLARGINE 100 UNITS/ML SUB-Q SCH (21:10)
[2021-07-14] MEDS: INSULIN LISPRO 100 UNIT/ML SUB-Q SCH ×5 (00:15→23:56)
[2021-07-14] MEDS: hydrALAZINE 100 MG TAB FEEDTUBE SCH ×3 (06:25→21:34)
[2021-07-14] MEDS: GABAPENTIN 100 MG CAP PO SCH ×3 (08:22→21:34)
[2021-07-14] MEDS: FAMOTIDINE 20 MG TAB FEEDTUBE SCH ×2 (09:02→21:34)
[2021-07-14] MEDS: amLODIPine 5 MG TAB PO SCH (09:02)
[2021-07-14] MEDS: MAGIC MOUTHWASH 30ML PO SCH ×3 (09:10→21:34)
--- NOTE | 2021-07-14 10:53 | Progress Note ---
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 07/14/21: No new recs. 07/13/21: no new recs. 07/12/21: Stable pulm [facility] for transport. Awaiting [facility] arrival for speech to work with patient. Continue PT/OT. Needs placement. 07/11/21: clinically stable for transport when bed is available at facility. Follow up speech recs. Reviewed neurology note, they state MRI cancelled. Appears this was done by surgery so they can discuss with them about why. Will continue to follow. 07/10/21: Continue current care. Trach changed out. Speech following. Awaiting placement. 07/09/21: Transfer to IMCU. PT/OT. Speech to see again now with smaller caliber trach. Placement. 07/08/21: Continue ICU. Once trach downsized may consider transition to step down if ICU bed is needed. Hopeful placement soon. PT/OT. 07/05/21: Continue ICU/IMCU status. Patient is stable for speech as well as PT/OT. Please reconsult them. [facility] has been denied for LTACH so will attempt to get patient into [facility] facility. Will speak with surgery about possibly downsizing trach to 8. Speech has no equipment to fit 10. Do not feel comfortable doing it myself or asking RT to change out to smaller trach. 07/04/21: Will keep in ICU/IMCU for now. Treat pain in back with [place] and discontinue Tylenol. Follow up with CM on placement. 07/03/21: Continue current level of care. CM working on placement. 07/02/21: ABG now. Patient did have low grade temp earlier today and still has a white count despite being off steroids. It is trending down. Reviewed ID note and they did mention of persistent consider ct of neck. May need to do this. If done, please scan head as well. Will continue to follow. Spoke with RT about obtaining ABG. 07/01/21: Continue T-piece. Follow up speech recs. Follow up electrolytes. PT/OT. Stable for transfer when bed available 06/30/21: Aggressive replacement of electrolytes. Will repeat chemistry tonight around 8. please call for orders as we would like to keep her K at 4 and Mag at 2. Chemistry in the am. Stable for transfer to telemetry floor. 06/29/21: Speech did see but patient had decreased voice quality and increased wob so aborted. Will ask them to assess again on Thursday. Chest tube out and ordered follow up CXR. Stable for transfer but ok with continuing monitoring in ICU. If bed needed could go to step down. 06/28/21: monitor drainage in ICU for 24 more hours. Can likely come out tomorrow. Continue in ICU for now. Once chest tube out, no objection to transfer. 06/27/21: Will place chest tube to water seal. Instructed staff if any change in respiratory status, place back on suction and obtain CXR. Otherwise will leave off. Continue T-piece as tolerated. Rehab/fpc/LTACH appropriate. STable for transfer if and when bed becomes available. 06/26/21: T-piece today. If off the vent, agree with surgery and removal of chest tube as subq emphysema is improving as well. PT has seen suggested LTACH, however if we are able to wean she may need fpc/rehab. Prognosis continues to improve. 06/25/21: Continue PSV as tolerated. Hopeful T-piece in the next 24-48 hours. Will drop steroids down further on . Can switch to daily and even change to oral. PT/OT consult, and follow up recs. May need LTACH vs rehab vs both. Continue to follow. 06/24/21: Daily PSV trials. Maybe ready for T-piece sson. Continue to wean steroids to off. IMS changed to 40q12 which is fine. Continue chest tube until off vent. Still on list for [facility] but will discuss with CM about checking into LTACH as patient will need rehab. PT/OT consult. 06/21/21: Continue current level of sedation. Chest tube does not have air leak but there is clear evidence of a PTX on right. Stripped tube at bedside and will repeat CXR in the morning. Hold on weaning sedation for now and hold on PSV trials. May need second chest tube vs vats if PTX worsens or does not resolve. Patient still on list for [facility], hopeful they will have a bed soon. Drop steroids to 40q8 starting Thursday. Monitor renal function, likely will improve. Needs more free water. Prognosis still remains guarded. 06/20/21: Restart some sedation. At least pain and maybe diprovan. Would like to wake patient up at some point and attempt some PSV trials. Labs are off this am. Large bump in white count but no fever, also no diff drawn. Could be error vs steroid related but this is in just 24 hours. Will repeat tomorrow. If spikes a temp neves culture as well. Small bump in Cr but still in normal range. Will watch. Now that peg in place, tube feeds and free water flushes. Still on list for [place]. Patient has been steroids greater than 7 days so will have to wean. Can drop to 60q8 starting tomorrow. Prognosis still remains guarded. 06/19/21: surgery to attempt trach and peg today. Still will ask to keep on transfer list for [place] as her other issues still need to be addressed. If able to place peg, can stop clinimix, give free water and start tube feeds. Prognosis remains guarded. pH better with drop in tidal volume. 06/18/21: [facility] has agreed to accept but no ICU beds available at this time. Spoke with Dr. Vasquez yesterday and Dr. Patricia spoke with ENT there. Spoke with RT this am and patient did have a leak when cuff let down and her tidal volumes dropped to below 100. Patient remains on abx and steriods. Will consider lightening sedation tomorrow and seeing how patient does if cuff leak persists. Dropped tidal volumes to 450. Continue PPN for now. 06/17/21: spoke with surgery and they feel transfer is reasonable. I have reached out to [facility] and [facility] has spoken with someone from [facility]. Await to hear back from them. Continue supportive measures and adequate sedation for pain control. No PSV trials as of yet. Blood sugar control, increase lantus. Most likely secondary to steroids. Continue abx therapy. Guarded prognosis. 06/16/21: Renal function improved with fluids. IMS to give more fluids (LR) today which I agree with. FeNa is =0.7. Should be fluid responsive. Continue clinimix. Needs long acting insulin. Agree with lantus. Asked nursing to increase sedation now that we know that patient's mental status is stable. Picc today. Air leak test vs Neck CT on tomorrow. 06/15/21: Hopeful with worsening renal function ( likely from code on yesterday) that sedatives are just lingering from that. Still making good urine but output has fallen off. Will send urine sodium and urine cr to check Fena. Most likely this is prerenal. ordered renal ultrasound as well. Continue abx and steroids. Will start clinimix today. This should help with the free water piece. Will give another liter bolus of LR right now. Keep sedation off for now. Guarded prognosis. 06/14/21: Will discuss with surgery future plans. They have ordered steroids to help with inflammation and abx continue. All others appears stable and no acute evidence of bleeding at this time. Follow up surgery recs if any new ones. G uarded prognosis. 06/13/21: Patient to back to OR today. BLood transfusion. Will send DIC panel and may need to given cryo if over 6 units of PRBC's given. Patient will likely need trach and peg as we need to address nutrition. Chest tube placed, large bore now. Patient now with right sided effusion. Hemothorax???. Will continue to monitor output. Needs picc line as femoral should come out soon. Continue pressors. Continue sedation for pain control and comfort. Guarded prognosis. Surgery comfortable with neck and current situation so they have not request transfer. 1. Placed right femoral central line. pressors can run through this. 2. Repeat chemistry stat given bicarb of 8 and blood sugar of greater than 600. Ordering FSBS now. Earlier bicarb was 25. If accurate will need bicarb drip and vasopressin but not sure as pH on blood gas was normal done around the same time. 3. Coagulopathy is improving. INR down to 4.55 and PTT and pT improving. Will continue to give FFP. Ordered more vitamin K. H/H is stable but patient is oozing from neck and mouth. 4. Vasopressor for blood pressure. Need to keep map 65 and greater 5. Lujan is needed for accurate I/O 6. Surgery called by IMS about current CT situation. They state they will reassess in the am. I have reviewed the images myself. If I can position the patient safely without compromising the airway after adequate sedation, may consider placing chest tube now as INR is better and FFP is hanging. Patient is morbidly obese so shits could move the ET tube so if not safe, will wait until surgery comes in the morning. 7. Would not attempt to pass OG or NG tube given current situation in neck 8. Will discuss with surgery tomorrow but I feel this patient should be transferred to a tertiary care facility with ENT as we do not have that service here. CCT 31 minutes. Subjective Date of service: 07/14/21 Interval history: No acute events. Stable pulm status. Objective Vital Signs - 12hr 07/13/21 07/13/21 07/13/21 22:00 22:01 23:00 Temperature Pulse Rate 108 H 95 H 98 H Pulse Rate [ From Monitor] Respiratory 18 22 20 Rate Blood Pressure 155/82 126/65 129/69 O2 Sat by Pulse 96 98 99 Oximetry O2 Sat by Pulse Oximetry [ Assessment] 07/14/21 07/14/21 07/14/21 00:00 01:00 03:01 Temperature 98.2 F Pulse Rate 99 H 96 H 99 H Pulse Rate [ 96 H From Monitor] Respiratory 26 H 16 22 Rate Blood Pressure 138/74 138/74 O2 Sat by Pulse 98 100 78 L Oximetry O2 Sat by Pulse Oximetry [ Assessment] 07/14/21 07/14/21 07/14/21 04:00 04:01 04:45 Temperature 99.2 F Pulse Rate 93 H Pulse Rate [ 96 H From Monitor] Respiratory 20 18 Rate Blood Pressure 113/25 O2 Sat by Pulse 99 98 Oximetry O2 Sat by Pulse 98 Oximetry [ Assessment] 07/14/21 07/14/21 07/14/21 05:01 06:01 07:01 Temperature Pulse Rate 95 H 90 90 Pulse Rate [ From Monitor] Respiratory 24 22 24 Rate Blood Pressure 113/25 113/25 113/25 O2 Sat by Pulse 100 97 100 Oximetry O2 Sat by Pulse Oximetry [ Assessment] 07/14/21 07/14/21 07/14/21 07:23 08:00 09:00 Temperature 98.3 F 98.3 F Pulse Rate 97 H 92 H Pulse Rate [ 95 H From Monitor] Respiratory 17 26 H Rate Blood Pressure 138/57 128/69 O2 Sat by Pulse 97 98 Oximetry O2 Sat by Pulse Oximetry [ Assessment] 07/14/21 07/14/21 09:02 10:00 Temperature Pulse Rate 91 H 91 H Pulse Rate [ From Monitor] Respiratory 16 Rate Blood Pressure 128/69 135/75 O2 Sat by Pulse Oximetry O2 Sat by Pulse Oximetry [ Assessment] Constitutional: alert, other (on vent trach in place) Eyes: non-icteric ENT: oropharynx moist Neck: other (trach in place) Ascultation: Bilateral: clear Percussion: Bilateral: not dull Cardiovascular: regular rate and rhythm Gastrointestinal: normoactive bowel sounds Integumentary: normal Extremities: no edema, other (subq emphysema) Neurologic: normal mental status CBC and BMP: 07/11/21 04:04 07/11/21 04:04 ABG, PT/INR, D-dimer: ABG ABG pH 7.448 pH Units (7.350-7.450) 07/04/21 01:44 POC ABG pCO2 25.6 mmHg (32.0-48.0) L 06/13/21 04:31 ABG pCO2 39.5 mm Hg 07/04/21 01:44 POC ABG pO2 138.8 mmHg (83-108) H 06/13/21 04:31 ABG pO2 107.7 mm Hg (80.0-90.0) H 07/04/21 01:44 POC ABG HCO3 21.4 06/13/21 04:31 ABG O2 Saturation 98.0 % (95.0-99.0) 07/04/21 01:44 PT/INR, D-dimer PT 18.3 Sec. (12.2-14.9) H 06/20/21 04:33 INR 1.37 (0.87-1.13) H 06/20/21 04:33 D-Dimer 1244.63 ng/mlDDU (0-234) H 06/13/21 Unknown Abnormal lab findings: Abnormal Labs 06/11/21 06/11/21 06/11/21 15:23 15:23 19:20 WBC 12.0 H RBC Hgb Hct MCV 72 L MCH 21 L RDW 17.5 H Plt Count Lymph % (Auto) 12.9 L [place] % (Auto) 8.6 H Lymph # (Auto) [place] # (Auto) 1.0 H Seg Neutrophils % 77.4 H Seg Neuts % (Manual) Lymphocytes % (Manual) Monocytes % (Manual) Basophils % (Manual) Seg Neutrophils # 9.3 H Seg Neutrophils # Man Lymphocytes # (Manual) Monocytes # (Manual) PT INR APTT Fibrinogen D-Dimer ABG pH POC ABG pCO2 POC ABG pO2 ABG pO2 ABG HCO3 ABG O2 Saturation ABG Base Excess ABG Hemoglobin ABG Oxyhemoglobin Oxyhemoglobin Sodium Potassium Chloride Carbon Dioxide BUN Creatinine Glucose 144 H POC Glucose Lactic Acid Calcium Phosphorus Magnesium AST ALT Alkaline Phosphatase C-Reactive Protein Total Protein Albumin Triglycerides Ur Specific [place] Urine Creatinine Crossmatch See Detail 06/11/21 06/11/21 06/11/21 19:29 19:29 23:21 WBC 15.8 H RBC Hgb 9.4 L Hct MCV 72 L MCH 22 L RDW 17.4 H Plt Count Lymph % (Auto) 9.2 L [place] % (Auto) Lymph # (Auto) [place] # (Auto) Seg Neutrophils % 89.0 H Seg Neuts % (Manual) Lymphocytes % (Manual) Monocytes % (Manual) Basophils % (Manual) Seg Neutrophils # 14.0 H Seg Neutrophils # Man Lymphocytes # (Manual) Monocytes # (Manual) PT 72.9 H INR 8.18 H* APTT 71.7 H* Fibrinogen D-Dimer ABG pH POC ABG pCO2 POC ABG pO2 ABG pO2 ABG HCO3 ABG O2 Saturation ABG Base Excess ABG Hemoglobin ABG Oxyhemoglobin Oxyhemoglobin Sodium 149 H D Potassium Chloride 124.3 H Carbon Dioxide 8 L* D BUN Creatinine 0.3 L Glucose 628 H* POC Glucose Lactic Acid Calcium 2.4 L* D Phosphorus Magnesium AST ALT < 5 L Alkaline Phosphatase 19 L C-Reactive Protein Total Protein 1.6 L D Albumin 0.8 L Triglycerides Ur Specific [place] Urine Creatinine Crossmatch 06/11/21 06/11/21 06/11/21 23:21 23:22 23:42 WBC RBC Hgb Hct MCV MCH 27 L RDW 22.2 H Plt Count 131 L Lymph % (Auto) [place] % (Auto) Lymph # (Auto) [place] # (Auto) Seg Neutrophils % Seg Neuts % (Manual) Lymphocytes % (Manual) Monocytes % (Manual) Basophils % (Manual) Seg Neutrophils # Seg Neutrophils # Man Lymphocytes # (Manual) Monocytes # (Manual) PT 46.3 H INR 4.55 H APTT 54.8 H Fibrinogen D-Dimer ABG pH POC ABG pCO2 POC ABG pO2 325.9 H ABG pO2 ABG HCO3 ABG O2 Saturation ABG Base Excess ABG Hemoglobin 8.0 L ABG Oxyhemoglobin 99.0 H Oxyhemoglobin Sodium Potassium Chloride Carbon Dioxide BUN Creatinine Glucose POC Glucose Lactic Acid Calcium Phosphorus Magnesium AST ALT Alkaline Phosphatase C-Reactive Protein Total Protein Albumin Triglycerides Ur Specific [place] Urine Creatinine Crossmatch 06/12/21 06/12/21 06/12/21 01:45 01:45 01:45 WBC 21.6 H RBC 3.04 L Hgb 6.7 L D Hct 22.4 L D MCV 74 L MCH 22 L RDW 18.9 H Plt Count Lymph % (Auto) [place] % (Auto) Lymph # (Auto) [place] # (Auto) Seg Neutrophils % Seg Neuts % (Manual) 76.0 H Lymphocytes % (Manual) 2.0 L Monocytes % (Manual) 8.0 H Basophils % (Manual) Seg Neutrophils # Seg Neutrophils # Man 16.4 H Lymphocytes # (Manual) 0.4 L Monocytes # (Manual) 1.7 H PT 25.4 H INR 2.10 H APTT Fibrinogen D-Dimer ABG pH POC ABG pCO2 POC ABG pO2 ABG pO2 ABG HCO3 ABG O2 Saturation ABG Base Excess ABG Hemoglobin ABG Oxyhemoglobin Oxyhemoglobin Sodium Potassium 5.6 H D Chloride Carbon Dioxide 20 L D BUN Creatinine Glucose 368 H POC Glucose Lactic Acid Calcium 7.1 L D Phosphorus Magnesium AST ALT Alkaline Phosphatase C-Reactive Protein Total Protein 5.3 L D Albumin 3.1 L Triglycerides Ur Specific [place] Urine Creatinine Crossmatch 06/12/21 06/12/21 06/12/21 02:05 04:41 11:05 WBC 14.6 H RBC 3.52 L Hgb 8.5 L Hct 27.7 L MCV MCH 24 L RDW 20.9 H Plt Count Lymph % (Auto) [place] % (Auto) Lymph # (Auto) [place] # (Auto) Seg Neutrophils % Seg Neuts % (Manual) Lymphocytes % (Manual) Monocytes % (Manual) Basophils % (Manual) Seg Neutrophils # Seg Neutrophils # Man Lymphocytes # (Manual) Monocytes # (Manual) PT INR APTT Fibrinogen D-Dimer ABG pH POC ABG pCO2 POC ABG pO2 224.6 H ABG pO2 ABG HCO3 ABG O2 Saturation ABG Base Excess ABG Hemoglobin 7.3 L ABG Oxyhemoglobin 98.7 H Oxyhemoglobin Sodium Potassium Chloride Carbon Dioxide BUN Creatinine Glucose POC Glucose 308 H Lactic Acid Calcium Phosphorus Magnesium AST ALT Alkaline Phosphatase C-Reactive Protein Total Protein Albumin Triglycerides Ur Specific [place] Urine Creatinine Crossmatch 06/12/21 06/12/21 06/12/21 11:05 11:05 12:18 WBC RBC Hgb Hct MCV MCH RDW Plt Count Lymph % (Auto) [place] % (Auto) Lymph # (Auto) [place] # (Auto) Seg Neutrophils % Seg Neuts % (Manual) Lymphocytes % (Manual) Monocytes % (Manual) Basophils % (Manual) Seg Neutrophils # Seg Neutrophils # Man Lymphocytes # (Manual) Monocytes # (Manual) PT 16.8 H INR 1.23 H APTT Fibrinogen D-Dimer ABG pH POC ABG pCO2 POC ABG pO2 ABG pO2 ABG HCO3 ABG O2 Saturation ABG Base Excess ABG Hemoglobin ABG Oxyhemoglobin Oxyhemoglobin Sodium Potassium Chloride Carbon Dioxide BUN 24 H Creatinine Glucose 324 H POC Glucose 281 H Lactic Acid Calcium 7.5 L Phosphorus Magnesium AST 70 H ALT 57 H Alkaline Phosphatase C-Reactive Protein Total Protein 6.0 L Albumin 3.6 L Triglycerides Ur Specific [place] Urine Creatinine Crossmatch 06/12/21 06/12/21 06/12/21 17:00 17:00 17:00 WBC RBC Hgb 7.5 L Hct 24.0 L MCV MCH RDW Plt Count Lymph % (Auto) [place] % (Auto) Lymph # (Auto) [place] # (Auto) Seg Neutrophils % Seg Neuts % (Manual) Lymphocytes % (Manual) Monocytes % (Manual) Basophils % (Manual) Seg Neutrophils # Seg Neutrophils # Man Lymphocytes # (Manual) Monocytes # (Manual) PT 16.0 H INR 1.16 H APTT Fibrinogen D-Dimer ABG pH POC ABG pCO2 POC ABG pO2 ABG pO2 ABG HCO3 ABG O2 Saturation ABG Base Excess ABG Hemoglobin ABG Oxyhemoglobin Oxyhemoglobin Sodium Potassium Chloride Carbon Dioxide BUN Creatinine Glucose POC Glucose Lactic Acid Calcium Phosphorus Magnesium AST ALT Alkaline Phosphatase C-Reactive Protein Total Protein Albumin Triglycerides Ur Specific [place] 1.035 H Urine Creatinine Crossmatch 06/12/21 06/12/21 06/12/21 18:06 23:00 23:05 WBC RBC Hgb 7.6 L Hct 23.5 L MCV MCH RDW Plt Count Lymph % (Auto) [place] % (Auto) Lymph # (Auto) [place] # (Auto) Seg Neutrophils % Seg Neuts % (Manual) Lymphocytes % (Manual) Monocytes % (Manual) Basophils % (Manual) Seg Neutrophils # Seg Neutrophils # Man Lymphocytes # (Manual) Monocytes # (Manual) PT INR APTT Fibrinogen D-Dimer ABG pH POC ABG pCO2 POC ABG pO2 ABG pO2 ABG HCO3 ABG O2 Saturation ABG Base Excess ABG Hemoglobin ABG Oxyhemoglobin Oxyhemoglobin Sodium Potassium Chloride Carbon Dioxide BUN Creatinine Glucose POC Glucose 257 H 300 H Lactic Acid Calcium Phosphorus Magnesium AST ALT Alkaline Phosphatase C-Reactive Protein Total Protein Albumin Triglycerides Ur Specific [place] Urine Creatinine Crossmatch 06/13/21 06/13/21 06/13/21 04:31 05:19 07:30 WBC RBC Hgb 6.8 L Hct 21.7 L MCV MCH RDW Plt Count Lymph % (Auto) [place] % (Auto) Lymph # (Auto) [place] # (Auto) Seg Neutrophils % Seg Neuts % (Manual) Lymphocytes % (Manual) Monocytes % (Manual) Basophils % (Manual) Seg Neutrophils # Seg Neutrophils # Man Lymphocytes # (Manual) Monocytes # (Manual) PT INR APTT Fibrinogen D-Dimer ABG pH 7.541 H POC ABG pCO2 25.6 L POC ABG pO2 138.8 H ABG pO2 ABG HCO3 ABG O2 Saturation ABG Base Excess ABG Hemoglobin 7.3 L ABG Oxyhemoglobin 98.1 H Oxyhemoglobin Sodium Potassium Chloride Carbon Dioxide BUN Creatinine Glucose POC Glucose 286 H Lactic Acid Calcium Phosphorus Magnesium AST ALT Alkaline Phosphatase C-Reactive Protein Total Protein Albumin Triglycerides Ur Specific [place] Urine Creatinine Crossmatch 06/13/21 06/13/21 06/13/21 07:30 12:04 14:50 WBC RBC Hgb Hct MCV MCH RDW Plt Count Lymph % (Auto) [place] % (Auto) Lymph # (Auto) [place] # (Auto) Seg Neutrophils % Seg Neuts % (Manual) Lymphocytes % (Manual) Monocytes % (Manual) Basophils % (Manual) Seg Neutrophils # Seg Neutrophils # Man Lymphocytes # (Manual) Monocytes # (Manual) PT INR APTT Fibrinogen D-Dimer ABG pH 7.039 L* 7.182 L* POC ABG pCO2 POC ABG pO2 ABG pO2 63.1 L ABG HCO3 17.4 L ABG O2 Saturation 73.4 L ABG Base Excess -12.6 L -7.1 L ABG Hemoglobin 7.7 L 6.9 L ABG Oxyhemoglobin Oxyhemoglobin 71.8 L 93.5 L Sodium Potassium Chloride 108.9 H Carbon Dioxide BUN 28 H Creatinine Glucose 293 H POC Glucose Lactic Acid Calcium 7.2 L Phosphorus Magnesium AST 106 H ALT 92 H Alkaline Phosphatase C-Reactive Protein Total Protein 5.6 L Albumin 3.3 L Triglycerides Ur Specific [place] Urine Creatinine Crossmatch 06/13/21 06/13/21 06/13/21 14:54 15:45 17:34 WBC RBC Hgb Hct MCV MCH RDW Plt Count Lymph % (Auto) [place] % (Auto) Lymph # (Auto) [place] # (Auto) Seg Neutrophils % Seg Neuts % (Manual) Lymphocytes % (Manual) Monocytes % (Manual) Basophils % (Manual) Seg Neutrophils # Seg Neutrophils # Man Lymphocytes # (Manual) Monocytes # (Manual) PT INR APTT Fibrinogen D-Dimer ABG pH POC ABG pCO2 POC ABG pO2 ABG pO2 178.4 H ABG HCO3 ABG O2 Saturation 99.1 H ABG Base Excess ABG Hemoglobin 8.0 L ABG Oxyhemoglobin Oxyhemoglobin Sodium Potassium Chloride 107.3 H Carbon Dioxide 19 L BUN 33 H Creatinine 1.5 H Glucose 379 H POC Glucose Lactic Acid 5.30 H* Calcium 6.8 L Phosphorus Magnesium AST ALT Alkaline Phosphatase C-Reactive Protein Total Protein Albumin Triglycerides Ur Specific [place] Urine Creatinine Crossmatch 06/13/21 06/13/21 06/13/21 17:40 23:29 Unknown WBC 22.5 H RBC 3.16 L Hgb 8.0 L Hct 26.0 L MCV MCH 26 L RDW 21.4 H Plt Count Lymph % (Auto) [place] % (Auto) Lymph # (Auto) [place] # (Auto) Seg Neutrophils % Seg Neuts % (Manual) 88.0 H Lymphocytes % (Manual) 4.0 L Monocytes % (Manual) Basophils % (Manual) Seg Neutrophils # Seg Neutrophils # Man 19.8 H Lymphocytes # (Manual) 0.9 L Monocytes # (Manual) 1.4 H PT INR APTT Fibrinogen D-Dimer ABG pH POC ABG pCO2 POC ABG pO2 ABG pO2 ABG HCO3 ABG O2 Saturation ABG Base Excess ABG Hemoglobin ABG Oxyhemoglobin Oxyhemoglobin Sodium Potassium Chloride Carbon Dioxide BUN Creatinine Glucose POC Glucose 294 H 288 H Lactic Acid Calcium Phosphorus Magnesium AST ALT Alkaline Phosphatase C-Reactive Protein Total Protein Albumin Triglycerides Ur Specific [place] Urine Creatinine Crossmatch 06/13/21 06/14/21 06/14/21 Unknown 05:39 06:15 WBC RBC 2.93 L Hgb 7.2 L Hct 23.2 L MCV MCH 25 L RDW 21.2 H Plt Count Lymph % (Auto) [place] % (Auto) Lymph # (Auto) [place] # (Auto) Seg Neutrophils % Seg Neuts % (Manual) Lymphocytes % (Manual) Monocytes % (Manual) Basophils % (Manual) Seg Neutrophils # Seg Neutrophils # Man Lymphocytes # (Manual) Monocytes # (Manual) PT 17.6 H INR 1.31 H APTT Fibrinogen 546 H D-Dimer 1244.63 H ABG pH POC ABG pCO2 POC ABG pO2 ABG pO2 ABG HCO3 ABG O2 Saturation ABG Base Excess ABG Hemoglobin ABG Oxyhemoglobin Oxyhemoglobin Sodium Potassium Chloride Carbon Dioxide BUN Creatinine Glucose POC Glucose 246 H Lactic Acid Calcium Phosphorus Magnesium AST ALT Alkaline Phosphatase C-Reactive Protein Total Protein Albumin Triglycerides Ur Specific [place] Urine Creatinine Crossmatch 06/14/21 06/14/21 06/14/21 06:15 06:15 09:13 WBC RBC Hgb Hct MCV MCH RDW Plt Count Lymph % (Auto) [place] % (Auto) Lymph # (Auto) [place] # (Auto) Seg Neutrophils % Seg Neuts % (Manual) Lymphocytes % (Manual) Monocytes % (Manual) Basophils % (Manual) Seg Neutrophils # Seg Neutrophils # Man Lymphocytes # (Manual) Monocytes # (Manual) PT INR APTT Fibrinogen D-Dimer ABG pH POC ABG pCO2 POC ABG pO2 ABG pO2 183.0 H ABG HCO3 ABG O2 Saturation 99.2 H ABG Base Excess ABG Hemoglobin 6.6 L ABG Oxyhemoglobin Oxyhemoglobin Sodium 147 H Potassium Chloride 112.5 H Carbon Dioxide 21 L BUN 36 H Creatinine 1.4 H Glucose 281 H POC Glucose Lactic Acid Calcium 6.9 L Phosphorus Magnesium AST ALT Alkaline Phosphatase C-Reactive Protein Total Protein Albumin Triglycerides 189 H Ur Specific [place] Urine Creatinine Crossmatch 06/14/21 06/14/21 06/14/21 10:45 12:16 13:30 WBC RBC Hgb 7.1 L Hct 22.3 L MCV MCH RDW Plt Count Lymph % (Auto) [place] % (Auto) Lymph # (Auto) [place] # (Auto) Seg Neutrophils % Seg Neuts % (Manual) Lymphocytes % (Manual) Monocytes % (Manual) Basophils % (Manual) Seg Neutrophils # Seg Neutrophils # Man Lymphocytes # (Manual) Monocytes # (Manual) PT INR APTT Fibrinogen D-Dimer ABG pH 7.205 L POC ABG pCO2 POC ABG pO2 ABG pO2 261.3 H ABG HCO3 ABG O2 Saturation 99.4 H ABG Base Excess -7.2 L ABG Hemoglobin 7.6 L ABG Oxyhemoglobin Oxyhemoglobin Sodium Potassium Chloride Carbon Dioxide BUN Creatinine Glucose POC Glucose 174 H Lactic Acid Calcium Phosphorus Magnesium AST ALT Alkaline Phosphatase C-Reactive Protein Total Protein Albumin Triglycerides Ur Specific [place] Urine Creatinine Crossmatch 06/14/21 06/14/21 06/15/21 17:40 18:43 00:06 WBC RBC Hgb Hct MCV MCH RDW Plt Count Lymph % (Auto) [place] % (Auto) Lymph # (Auto) [place] # (Auto) Seg Neutrophils % Seg Neuts % (Manual) Lymphocytes % (Manual) Monocytes % (Manual) Basophils % (Manual) Seg Neutrophils # Seg Neutrophils # Man Lymphocytes # (Manual) Monocytes # (Manual) PT INR APTT Fibrinogen D-Dimer ABG pH 7.292 L POC ABG pCO2 POC ABG pO2 ABG pO2 78.8 L ABG HCO3 ABG O2 Saturation ABG Base Excess -5.0 L ABG Hemoglobin 9.1 L ABG Oxyhemoglobin Oxyhemoglobin 93.7 L Sodium Potassium Chloride Carbon Dioxide BUN Creatinine Glucose POC Glucose 182 H 144 H Lactic Acid Calcium Phosphorus Magnesium AST ALT Alkaline Phosphatase C-Reactive Protein Total Protein Albumin Triglycerides Ur Specific [place] Urine Creatinine Crossmatch 06/15/21 06/15/21 06/15/21 03:55 03:56 10:40 WBC RBC Hgb 8.4 L Hct 25.8 L MCV MCH RDW Plt Count Lymph % (Auto) [place] % (Auto) Lymph # (Auto) [place] # (Auto) Seg Neutrophils % Seg Neuts % (Manual) Lymphocytes % (Manual) Monocytes % (Manual) Basophils % (Manual) Seg Neutrophils # Seg Neutrophils # Man Lymphocytes # (Manual) Monocytes # (Manual) PT INR APTT Fibrinogen D-Dimer ABG pH POC ABG pCO2 POC ABG pO2 ABG pO2 ABG HCO3 ABG O2 Saturation ABG Base Excess ABG Hemoglobin ABG Oxyhemoglobin Oxyhemoglobin Sodium 147 H Potassium Chloride 112.2 H Carbon Dioxide 21 L BUN 47 H Creatinine 1.9 H Glucose 272 H POC Glucose Lactic Acid Calcium 7.3 L Phosphorus Magnesium AST 64 H ALT 106 H Alkaline Phosphatase C-Reactive Protein Total Protein 5.1 L Albumin 2.9 L Triglycerides Ur Specific [place] Urine Creatinine 81.1 H Crossmatch 06/15/21 06/15/21 06/15/21 11:46 17:16 23:17 WBC RBC Hgb Hct MCV MCH RDW Plt Count Lymph % (Auto) [place] % (Auto) Lymph # (Auto) [place] # (Auto) Seg Neutrophils % Seg Neuts % (Manual) Lymphocytes % (Manual) Monocytes % (Manual) Basophils % (Manual) Seg Neutrophils # Seg Neutrophils # Man Lymphocytes # (Manual) Monocytes # (Manual) PT INR APTT Fibrinogen D-Dimer ABG pH POC ABG pCO2 POC ABG pO2 ABG pO2 ABG HCO3 ABG O2 Saturation ABG Base Excess ABG Hemoglobin ABG Oxyhemoglobin Oxyhemoglobin Sodium Potassium Chloride Carbon Dioxide BUN Creatinine Glucose POC Glucose 271 H 268 H 264 H Lactic Acid Calcium Phosphorus Magnesium AST ALT Alkaline Phosphatase C-Reactive Protein Total Protein Albumin Triglycerides Ur Specific [place] Urine Creatinine Crossmatch 06/15/21 06/15/21 06/16/21 Unknown Unknown 04:32 WBC RBC 3.21 L 3.16 L Hgb 8.4 L 8.2 L Hct 26.1 L 25.4 L MCV MCH 26 L 26 L RDW 21.3 H 21.2 H Plt Count 105 L 118 L Lymph % (Auto) [place] % (Auto) Lymph # (Auto) [place] # (Auto) Seg Neutrophils % Seg Neuts % (Manual) Lymphocytes % (Manual) Monocytes % (Manual) Basophils % (Manual) Seg Neutrophils # Seg Neutrophils # Man Lymphocytes # (Manual) Monocytes # (Manual) PT INR APTT Fibrinogen D-Dimer ABG pH 7.465 H POC ABG pCO2 POC ABG pO2 ABG pO2 114.1 H ABG HCO3 ABG O2 Saturation ABG Base Excess ABG Hemoglobin 8.4 L ABG Oxyhemoglobin Oxyhemoglobin Sodium Potassium Chloride Carbon Dioxide BUN Creatinine Glucose POC Glucose Lactic Acid Calcium Phosphorus Magnesium AST ALT Alkaline Phosphatase C-Reactive Protein Total Protein Albumin Triglycerides Ur Specific [place] Urine Creatinine Crossmatch 06/16/21 06/16/21 06/16/21 04:32 04:32 05:08 WBC RBC Hgb Hct MCV MCH RDW Plt Count Lymph % (Auto) [place] % (Auto) Lymph # (Auto) [place] # (Auto) Seg Neutrophils % Seg Neuts % (Manual) Lymphocytes % (Manual) Monocytes % (Manual) Basophils % (Manual) Seg Neutrophils # Seg Neutrophils # Man Lymphocytes # (Manual) Monocytes # (Manual) PT INR APTT Fibrinogen D-Dimer ABG pH POC ABG pCO2 POC ABG pO2 ABG pO2 ABG HCO3 ABG O2 Saturation ABG Base Excess ABG Hemoglobin ABG Oxyhemoglobin Oxyhemoglobin Sodium 148 H Potassium 3.3 L Chloride 115.1 H Carbon Dioxide 21 L BUN 54 H Creatinine 1.6 H Glucose 367 H POC Glucose 356 H Lactic Acid Calcium 7.4 L Phosphorus Magnesium AST ALT Alkaline Phosphatase C-Reactive Protein 3.30 H Total Protein Albumin Triglycerides Ur Specific [place] Urine Creatinine Crossmatch 06/16/21 06/16/21 06/16/21 05:30 11:46 17:03 WBC RBC Hgb Hct MCV MCH RDW Plt Count Lymph % (Auto) [place] % (Auto) Lymph # (Auto) [place] # (Auto) Seg Neutrophils % Seg Neuts % (Manual) Lymphocytes % (Manual) Monocytes % (Manual) Basophils % (Manual) Seg Neutrophils # Seg Neutrophils # Man Lymphocytes # (Manual) Monocytes # (Manual) PT INR APTT Fibrinogen D-Dimer ABG pH 7.475 H POC ABG pCO2 POC ABG pO2 ABG pO2 171.8 H ABG HCO3 ABG O2 Saturation 99.1 H ABG Base Excess ABG Hemoglobin 11.7 L ABG Oxyhemoglobin Oxyhemoglobin Sodium Potassium Chloride Carbon Dioxide BUN Creatinine Glucose POC Glucose 309 H 345 H Lactic Acid Calcium Phosphorus Magnesium AST ALT Alkaline Phosphatase C-Reactive Protein Total Protein Albumin Triglycerides Ur Specific [place] Urine Creatinine Crossmatch 06/16/21 06/16/21 06/17/21 20:18 23:22 04:50 WBC RBC Hgb Hct MCV MCH RDW Plt Count Lymph % (Auto) [place] % (Auto) Lymph # (Auto) [place] # (Auto) Seg Neutrophils % Seg Neuts % (Manual) Lymphocytes % (Manual) Monocytes % (Manual) Basophils % (Manual) Seg Neutrophils # Seg Neutrophils # Man Lymphocytes # (Manual) Monocytes # (Manual) PT INR APTT Fibrinogen D-Dimer ABG pH 7.479 H POC ABG pCO2 POC ABG pO2 ABG pO2 143.1 H ABG HCO3 ABG O2 Saturation ABG Base Excess ABG Hemoglobin 10.0 L ABG Oxyhemoglobin Oxyhemoglobin Sodium Potassium Chloride Carbon Dioxide BUN Creatinine Glucose POC Glucose 325 H 315 H Lactic Acid Calcium Phosphorus Magnesium AST ALT Alkaline Phosphatase C-Reactive Protein Total Protein Albumin Triglycerides Ur Specific [place] Urine Creatinine Crossmatch 06/17/21 06/17/21 06/17/21 05:18 05:30 05:30 WBC RBC 3.17 L Hgb 8.2 L Hct 25.5 L MCV MCH 26 L RDW 21.2 H Plt Count 128 L Lymph % (Auto) [place] % (Auto) Lymph # (Auto) [place] # (Auto) Seg Neutrophils % Seg Neuts % (Manual) Lymphocytes % (Manual) Monocytes % (Manual) Basophils % (Manual) Seg Neutrophils # Seg Neutrophils # Man Lymphocytes # (Manual) Monocytes # (Manual) PT INR APTT Fibrinogen D-Dimer ABG pH POC ABG pCO2 POC ABG pO2 ABG pO2 ABG HCO3 ABG O2 Saturation ABG Base Excess ABG Hemoglobin ABG Oxyhemoglobin Oxyhemoglobin Sodium 148 H Potassium Chloride 113.7 H Carbon Dioxide 20 L BUN 57 H Creatinine 1.4 H Glucose 351 H POC Glucose 324 H Lactic Acid Calcium 8.0 L Phosphorus 2.30 L Magnesium AST ALT Alkaline Phosphatase C-Reactive Protein Total Protein Albumin Triglycerides Ur Specific [place] Urine Creatinine Crossmatch 06/17/21 06/17/21 06/17/21 11:49 17:43 21:42 WBC RBC Hgb Hct MCV MCH RDW Plt Count Lymph % (Auto) [place] % (Auto) Lymph # (Auto) [place] # (Auto) Seg Neutrophils % Seg Neuts % (Manual) Lymphocytes % (Manual) Monocytes % (Manual) Basophils % (Manual) Seg Neutrophils # Seg Neutrophils # Man Lymphocytes # (Manual) Monocytes # (Manual) PT INR APTT Fibrinogen D-Dimer ABG pH POC ABG pCO2 POC ABG pO2 ABG pO2 ABG HCO3 ABG O2 Saturation ABG Base Excess ABG Hemoglobin ABG Oxyhemoglobin Oxyhemoglobin Sodium Potassium Chloride Carbon Dioxide BUN Creatinine Glucose POC Glucose 305 H 307 H 286 H Lactic Acid Calcium Phosphorus Magnesium AST ALT Alkaline Phosphatase C-Reactive Protein Total Protein Albumin Triglycerides Ur Specific [place] Urine Creatinine Crossmatch 06/17/21 06/18/21 06/18/21 23:59 04:20 04:37 WBC RBC 3.53 L Hgb 9.1 L Hct 28.7 L MCV MCH 26 L RDW 21.3 H Plt Count Lymph % (Auto) [place] % (Auto) Lymph # (Auto) [place] # (Auto) Seg Neutrophils % Seg Neuts % (Manual) Lymphocytes % (Manual) Monocytes % (Manual) Basophils % (Manual) Seg Neutrophils # Seg Neutrophils # Man Lymphocytes # (Manual) Monocytes # (Manual) PT INR APTT Fibrinogen D-Dimer ABG pH 7.495 H POC ABG pCO2 POC ABG pO2 ABG pO2 108.3 H ABG HCO3 ABG O2 Saturation ABG Base Excess -2.1 L ABG Hemoglobin 10.0 L ABG Oxyhemoglobin Oxyhemoglobin Sodium Potassium Chloride Carbon Dioxide BUN Creatinine Glucose POC Glucose 264 H Lactic Acid Calcium Phosphorus Magnesium AST ALT Alkaline Phosphatase C-Reactive Protein Total Protein Albumin Triglycerides Ur Specific [place] Urine Creatinine Crossmatch 06/18/21 06/18/21 06/18/21 04:37 05:32 11:21 WBC RBC Hgb Hct MCV MCH RDW Plt Count Lymph % (Auto) [place] % (Auto) Lymph # (Auto) [place] # (Auto) Seg Neutrophils % Seg Neuts % (Manual) Lymphocytes % (Manual) Monocytes % (Manual) Basophils % (Manual) Seg Neutrophils # Seg Neutrophils # Man Lymphocytes # (Manual) Monocytes # (Manual) PT INR APTT Fibrinogen D-Dimer ABG pH POC ABG pCO2 POC ABG pO2 ABG pO2 ABG HCO3 ABG O2 Saturation ABG Base Excess ABG Hemoglobin ABG Oxyhemoglobin Oxyhemoglobin Sodium 148 H Potassium Chloride 114.7 H Carbon Dioxide BUN 59 H Creatinine 1.3 H Glucose 329 H POC Glucose 293 H 291 H Lactic Acid Calcium 8.1 L Phosphorus Magnesium AST ALT Alkaline Phosphatase C-Reactive Protein Total Protein Albumin Triglycerides Ur Specific [place] Urine Creatinine Crossmatch 06/18/21 06/18/21 06/19/21 18:21 21:46 00:15 WBC RBC Hgb Hct MCV MCH RDW Plt Count Lymph % (Auto) [place] % (Auto) Lymph # (Auto) [place] # (Auto) Seg Neutrophils % Seg Neuts % (Manual) Lymphocytes % (Manual) Monocytes % (Manual) Basophils % (Manual) Seg Neutrophils # Seg Neutrophils # Man Lymphocytes # (Manual) Monocytes # (Manual) PT INR APTT Fibrinogen D-Dimer ABG pH POC ABG pCO2 POC ABG pO2 ABG pO2 ABG HCO3 ABG O2 Saturation ABG Base Excess ABG Hemoglobin ABG Oxyhemoglobin Oxyhemoglobin Sodium Potassium Chloride Carbon Dioxide BUN Creatinine Glucose POC Glucose 239 H 259 H 310 H Lactic Acid Calcium Phosphorus Magnesium AST ALT Alkaline Phosphatase C-Reactive Protein Total Protein Albumin Triglycerides Ur Specific [place] Urine Creatinine Crossmatch 06/19/21 06/19/21 06/19/21 04:00 04:00 04:50 WBC RBC 3.64 L Hgb 9.1 L Hct 29.1 L MCV MCH 25 L RDW 21.5 H Plt Count Lymph % (Auto) [place] % (Auto) Lymph # (Auto) [place] # (Auto) Seg Neutrophils % Seg Neuts % (Manual) Lymphocytes % (Manual) Monocytes % (Manual) Basophils % (Manual) Seg Neutrophils # Seg Neutrophils # Man Lymphocytes # (Manual) Monocytes # (Manual) PT INR APTT Fibrinogen D-Dimer ABG pH POC ABG pCO2 POC ABG pO2 ABG pO2 78.9 L ABG HCO3 ABG O2 Saturation ABG Base Excess -3.2 L ABG Hemoglobin 7.6 L ABG Oxyhemoglobin Oxyhemoglobin Sodium 148 H Potassium Chloride 114.9 H Carbon Dioxide 19 L BUN 59 H Creatinine Glucose 345 H POC Glucose Lactic Acid Calcium 8.1 L Phosphorus 4.60 H D Magnesium 2.40 H AST ALT Alkaline Phosphatase C-Reactive Protein Total Protein Albumin Triglycerides Ur Specific [place] Urine Creatinine Crossmatch 06/19/21 06/19/21 06/19/21 06:28 11:11 17:20 WBC RBC Hgb Hct MCV MCH RDW Plt Count Lymph % (Auto) [place] % (Auto) Lymph # (Auto) [place] # (Auto) Seg Neutrophils % Seg Neuts % (Manual) Lymphocytes % (Manual) Monocytes % (Manual) Basophils % (Manual) Seg Neutrophils # Seg Neutrophils # Man Lymphocytes # (Manual) Monocytes # (Manual) PT 29.7 H INR 2.57 H APTT Fibrinogen D-Dimer ABG pH POC ABG pCO2 POC ABG pO2 ABG pO2 ABG HCO3 ABG O2 Saturation ABG Base Excess ABG Hemoglobin ABG Oxyhemoglobin Oxyhemoglobin Sodium Potassium Chloride Carbon Dioxide BUN Creatinine Glucose POC Glucose 279 H 275 H Lactic Acid Calcium Phosphorus Magnesium AST ALT Alkaline Phosphatase C-Reactive Protein Total Protein Albumin Triglycerides Ur Specific [place] Urine Creatinine Crossmatch 06/19/21 06/19/21 06/19/21 18:30 19:20 23:27 WBC RBC Hgb 8.0 L Hct 25.0 L MCV MCH RDW Plt Count Lymph % (Auto) [place] % (Auto) Lymph # (Auto) [place] # (Auto) Seg Neutrophils % Seg Neuts % (Manual) Lymphocytes % (Manual) Monocytes % (Manual) Basophils % (Manual) Seg Neutrophils # Seg Neutrophils # Man Lymphocytes # (Manual) Monocytes # (Manual) PT INR APTT Fibrinogen D-Dimer ABG pH POC ABG pCO2 POC ABG pO2 ABG pO2 ABG HCO3 ABG O2 Saturation ABG Base Excess ABG Hemoglobin ABG Oxyhemoglobin Oxyhemoglobin Sodium Potassium Chloride Carbon Dioxide BUN Creatinine Glucose POC Glucose 279 H 290 H Lactic Acid Calcium Phosphorus Magnesium AST ALT Alkaline Phosphatase C-Reactive Protein Total Protein Albumin Triglycerides Ur Specific [place] Urine Creatinine Crossmatch 06/20/21 06/20/21 06/20/21 00:00 04:33 04:33 WBC 22.3 H RBC 3.31 L Hgb 7.4 L 8.5 L Hct 22.5 L 26.5 L MCV MCH 26 L RDW 21.5 H Plt Count Lymph % (Auto) [place] % (Auto) Lymph # (Auto) [place] # (Auto) Seg Neutrophils % Seg Neuts % (Manual) Lymphocytes % (Manual) Monocytes % (Manual) Basophils % (Manual) Seg Neutrophils # Seg Neutrophils # Man Lymphocytes # (Manual) Monocytes # (Manual) PT INR APTT Fibrinogen D-Dimer ABG pH POC ABG pCO2 POC ABG pO2 ABG pO2 ABG HCO3 ABG O2 Saturation ABG Base Excess ABG Hemoglobin ABG Oxyhemoglobin Oxyhemoglobin Sodium 148 H Potassium Chloride 114.2 H Carbon Dioxide BUN 70 H Creatinine 1.4 H Glucose 313 H POC Glucose Lactic Acid Calcium 8.2 L Phosphorus Magnesium 2.50 H AST ALT Alkaline Phosphatase C-Reactive Protein Total Protein Albumin Triglycerides Ur Specific [place] Urine Creatinine Crossmatch 06/20/21 06/20/21 06/20/21 04:33 05:27 11:21 WBC RBC Hgb Hct MCV MCH RDW Plt Count Lymph % (Auto) [place] % (Auto) Lymph # (Auto) [place] # (Auto) Seg Neutrophils % Seg Neuts % (Manual) Lymphocytes % (Manual) Monocytes % (Manual) Basophils % (Manual) Seg Neutrophils # Seg Neutrophils # Man Lymphocytes # (Manual) Monocytes # (Manual) PT 18.3 H INR 1.37 H APTT Fibrinogen D-Dimer ABG pH POC ABG pCO2 POC ABG pO2 ABG pO2 ABG HCO3 ABG O2 Saturation ABG Base Excess ABG Hemoglobin ABG Oxyhemoglobin Oxyhemoglobin Sodium Potassium Chloride Carbon Dioxide BUN Creatinine Glucose POC Glucose 288 H 306 H Lactic Acid Calcium Phosphorus Magnesium AST ALT Alkaline Phosphatase C-Reactive Protein Total Protein Albumin Triglycerides Ur Specific [place] Urine Creatinine Crossmatch 06/20/21 06/20/21 06/20/21 12:23 15:56 18:20 WBC RBC Hgb 8.2 L 8.1 L Hct 25.9 L 25.5 L MCV MCH RDW Plt Count Lymph % (Auto) [place] % (Auto) Lymph # (Auto) [place] # (Auto) Seg Neutrophils % Seg Neuts % (Manual) Lymphocytes % (Manual) Monocytes % (Manual) Basophils % (Manual) Seg Neutrophils # Seg Neutrophils # Man Lymphocytes # (Manual) Monocytes # (Manual) PT INR APTT Fibrinogen D-Dimer ABG pH POC ABG pCO2 POC ABG pO2 ABG pO2 ABG HCO3 ABG O2 Saturation ABG Base Excess ABG Hemoglobin ABG Oxyhemoglobin Oxyhemoglobin Sodium Potassium Chloride Carbon Dioxide BUN Creatinine Glucose POC Glucose 293 H Lactic Acid Calcium Phosphorus Magnesium AST ALT Alkaline Phosphatase C-Reactive Protein Total Protein Albumin Triglycerides Ur Specific [place] Urine Creatinine Crossmatch 06/20/21 06/21/21 06/21/21 23:11 04:20 04:42 WBC 15.1 H RBC 2.84 L Hgb 7.3 L Hct 23.1 L MCV MCH 26 L RDW 21.5 H Plt Count Lymph % (Auto) 3.5 L [place] % (Auto) 11.7 H Lymph # (Auto) 0.5 L [place] # (Auto) 1.8 H Seg Neutrophils % 84.7 H Seg Neuts % (Manual) Lymphocytes % (Manual) Monocytes % (Manual) Basophils % (Manual) Seg Neutrophils # 12.8 H Seg Neutrophils # Man Lymphocytes # (Manual) Monocytes # (Manual) PT INR APTT Fibrinogen D-Dimer ABG pH POC ABG pCO2 POC ABG pO2 ABG pO2 98.5 H ABG HCO3 ABG O2 Saturation ABG Base Excess ABG Hemoglobin 7.2 L ABG Oxyhemoglobin Oxyhemoglobin Sodium Potassium Chloride Carbon Dioxide BUN Creatinine Glucose POC Glucose 206 H Lactic Acid Calcium Phosphorus Magnesium AST ALT Alkaline Phosphatase C-Reactive Protein Total Protein Albumin Triglycerides Ur Specific [place] Urine Creatinine Crossmatch 06/21/21 06/21/21 06/21/21 04:42 05:08 11:06 WBC RBC Hgb Hct MCV MCH RDW Plt Count Lymph % (Auto) [place] % (Auto) Lymph # (Auto) [place] # (Auto) Seg Neutrophils % Seg Neuts % (Manual) Lymphocytes % (Manual) Monocytes % (Manual) Basophils % (Manual) Seg Neutrophils # Seg Neutrophils # Man Lymphocytes # (Manual) Monocytes # (Manual) PT INR APTT Fibrinogen D-Dimer ABG pH POC ABG pCO2 POC ABG pO2 ABG pO2 ABG HCO3 ABG O2 Saturation ABG Base Excess ABG Hemoglobin ABG Oxyhemoglobin Oxyhemoglobin Sodium 151 H Potassium Chloride 117.2 H Carbon Dioxide 21 L BUN 75 H Creatinine 1.6 H Glucose 216 H POC Glucose 190 H 204 H Lactic Acid Calcium 7.9 L Phosphorus Magnesium 2.60 H AST ALT Alkaline Phosphatase C-Reactive Protein Total Protein Albumin Triglycerides 254 H Ur Specific [place] Urine Creatinine Crossmatch 06/21/21 06/21/21 06/21/21 14:00 16:42 21:52 WBC RBC Hgb 7.1 L 7.2 L Hct 22.0 L 22.1 L MCV MCH RDW Plt Count Lymph % (Auto) [place] % (Auto) Lymph # (Auto) [place] # (Auto) Seg Neutrophils % Seg Neuts % (Manual) Lymphocytes % (Manual) Monocytes % (Manual) Basophils % (Manual) Seg Neutrophils # Seg Neutrophils # Man Lymphocytes # (Manual) Monocytes # (Manual) PT INR APTT Fibrinogen D-Dimer ABG pH POC ABG pCO2 POC ABG pO2 ABG pO2 ABG HCO3 ABG O2 Saturation ABG Base Excess ABG Hemoglobin ABG Oxyhemoglobin Oxyhemoglobin Sodium Potassium Chloride Carbon Dioxide BUN Creatinine Glucose POC Glucose 207 H Lactic Acid Calcium Phosphorus Magnesium AST ALT Alkaline Phosphatase C-Reactive Protein Total Protein Albumin Triglycerides Ur Specific [place] Urine Creatinine Crossmatch 06/21/21 06/22/21 06/22/21 23:29 04:30 04:30 WBC 16.8 H RBC 2.93 L Hgb 7.4 L Hct 23.9 L MCV MCH 25 L RDW 21.8 H Plt Count Lymph % (Auto) [place] % (Auto) Lymph # (Auto) [place] # (Auto) Seg Neutrophils % Seg Neuts % (Manual) Lymphocytes % (Manual) Monocytes % (Manual) Basophils % (Manual) Seg Neutrophils # Seg Neutrophils # Man Lymphocytes # (Manual) Monocytes # (Manual) PT INR APTT Fibrinogen D-Dimer ABG pH POC ABG pCO2 POC ABG pO2 ABG pO2 ABG HCO3 ABG O2 Saturation ABG Base Excess ABG Hemoglobin ABG Oxyhemoglobin Oxyhemoglobin Sodium 151 H Potassium Chloride 118.7 H Carbon Dioxide BUN 57 H Creatinine Glucose 238 H POC Glucose 273 H Lactic Acid Calcium 8.0 L Phosphorus Magnesium 2.70 H AST ALT Alkaline Phosphatase C-Reactive Protein Total Protein Albumin Triglycerides Ur Specific [place] Urine Creatinine Crossmatch 06/22/21 06/22/21 06/22/21 05:17 11:31 14:20 WBC RBC Hgb 7.4 L Hct 22.5 L MCV MCH RDW Plt Count Lymph % (Auto) [place] % (Auto) Lymph # (Auto) [place] # (Auto) Seg Neutrophils % Seg Neuts % (Manual) Lymphocytes % (Manual) Monocytes % (Manual) Basophils % (Manual) Seg Neutrophils # Seg Neutrophils # Man Lymphocytes # (Manual) Monocytes # (Manual) PT INR APTT Fibrinogen D-Dimer ABG pH POC ABG pCO2 POC ABG pO2 ABG pO2 ABG HCO3 ABG O2 Saturation ABG Base Excess ABG Hemoglobin ABG Oxyhemoglobin Oxyhemoglobin Sodium Potassium Chloride Carbon Dioxide BUN Creatinine Glucose POC Glucose 214 H 214 H Lactic Acid Calcium Phosphorus Magnesium AST ALT Alkaline Phosphatase C-Reactive Protein Total Protein Albumin Triglycerides Ur Specific [place] Urine Creatinine Crossmatch 06/22/21 06/22/21 06/23/21 17:18 23:47 05:33 WBC RBC Hgb Hct MCV MCH RDW Plt Count Lymph % (Auto) [place] % (Auto) Lymph # (Auto) [place] # (Auto) Seg Neutrophils % Seg Neuts % (Manual) Lymphocytes % (Manual) Monocytes % (Manual) Basophils % (Manual) Seg Neutrophils # Seg Neutrophils # Man Lymphocytes # (Manual) Monocytes # (Manual) PT INR APTT Fibrinogen D-Dimer ABG pH POC ABG pCO2 POC ABG pO2 ABG pO2 ABG HCO3 ABG O2 Saturation ABG Base Excess ABG Hemoglobin ABG Oxyhemoglobin Oxyhemoglobin Sodium Potassium Chloride Carbon Dioxide BUN Creatinine Glucose POC Glucose 238 H 227 H 202 H Lactic Acid Calcium Phosphorus Magnesium AST ALT Alkaline Phosphatase C-Reactive Protein Total Protein Albumin Triglycerides Ur Specific [place] Urine Creatinine Crossmatch 06/23/21 06/23/21 06/23/21 10:04 10:04 11:06 WBC 20.3 H RBC 2.71 L Hgb 7.3 L Hct 21.8 L MCV MCH 27 L RDW 22.1 H Plt Count Lymph % (Auto) [place] % (Auto) Lymph # (Auto) [place] # (Auto) Seg Neutrophils % Seg Neuts % (Manual) Lymphocytes % (Manual) Monocytes % (Manual) Basophils % (Manual) Seg Neutrophils # Seg Neutrophils # Man Lymphocytes # (Manual) Monocytes # (Manual) PT INR APTT Fibrinogen D-Dimer ABG pH POC ABG pCO2 POC ABG pO2 ABG pO2 ABG HCO3 ABG O2 Saturation ABG Base Excess ABG Hemoglobin ABG Oxyhemoglobin Oxyhemoglobin Sodium 151 H Potassium 3.2 L Chloride 116.9 H Carbon Dioxide BUN 40 H Creatinine Glucose 208 H POC Glucose 204 H Lactic Acid Calcium 8.0 L Phosphorus 1.80 L D Magnesium AST ALT Alkaline Phosphatase C-Reactive Protein Total Protein Albumin Triglycerides Ur Specific [place] Urine Creatinine Crossmatch 06/23/21 06/23/21 06/24/21 16:11 23:47 04:00 WBC 16.9 H RBC 2.49 L Hgb 6.6 L Hct 20.3 L MCV MCH 26 L RDW 22.6 H Plt Count Lymph % (Auto) [place] % (Auto) Lymph # (Auto) [place] # (Auto) Seg Neutrophils % Seg Neuts % (Manual) Lymphocytes % (Manual) Monocytes % (Manual) Basophils % (Manual) Seg Neutrophils # Seg Neutrophils # Man Lymphocytes # (Manual) Monocytes # (Manual) PT INR APTT Fibrinogen D-Dimer ABG pH POC ABG pCO2 POC ABG pO2 ABG pO2 ABG HCO3 ABG O2 Saturation ABG Base Excess ABG Hemoglobin ABG Oxyhemoglobin Oxyhemoglobin Sodium Potassium Chloride Carbon Dioxide BUN Creatinine Glucose POC Glucose 228 H 189 H Lactic Acid Calcium Phosphorus Magnesium AST ALT Alkaline Phosphatase C-Reactive Protein Total Protein Albumin Triglycerides Ur Specific [place] Urine Creatinine Crossmatch 06/24/21 06/24/21 06/24/21 04:00 05:43 06:40 WBC RBC Hgb Hct MCV MCH RDW Plt Count Lymph % (Auto) [place] % (Auto) Lymph # (Auto) [place] # (Auto) Seg Neutrophils % Seg Neuts % (Manual) Lymphocytes % (Manual) Monocytes % (Manual) Basophils % (Manual) Seg Neutrophils # Seg Neutrophils # Man Lymphocytes # (Manual) Monocytes # (Manual) PT INR APTT Fibrinogen D-Dimer ABG pH POC ABG pCO2 POC ABG pO2 ABG pO2 ABG HCO3 ABG O2 Saturation ABG Base Excess ABG Hemoglobin ABG Oxyhemoglobin Oxyhemoglobin Sodium 148 H Potassium 3.2 L Chloride 115.6 H Carbon Dioxide BUN 35 H Creatinine Glucose 153 H POC Glucose 134 H Lactic Acid Calcium 7.9 L Phosphorus 2.40 L D Magnesium AST ALT Alkaline Phosphatase C-Reactive Protein Total Protein Albumin Triglycerides Ur Specific [place] Urine Creatinine Crossmatch See Detail 06/24/21 06/24/21 06/24/21 11:08 16:47 21:49 WBC RBC Hgb Hct MCV MCH RDW Plt Count Lymph % (Auto) [place] % (Auto) Lymph # (Auto) [place] # (Auto) Seg Neutrophils % Seg Neuts % (Manual) Lymphocytes % (Manual) Monocytes % (Manual) Basophils % (Manual) Seg Neutrophils # Seg Neutrophils # Man Lymphocytes # (Manual) Monocytes # (Manual) PT INR APTT Fibrinogen D-Dimer ABG pH POC ABG pCO2 POC ABG pO2 ABG pO2 ABG HCO3 ABG O2 Saturation ABG Base Excess ABG Hemoglobin ABG Oxyhemoglobin Oxyhemoglobin Sodium Potassium Chloride Carbon Dioxide BUN Creatinine Glucose POC Glucose 153 H 201 H 132 H Lactic Acid Calcium Phosphorus Magnesium AST ALT Alkaline Phosphatase C-Reactive Protein Total Protein Albumin Triglycerides Ur Specific [place] Urine Creatinine Crossmatch 06/24/21 06/25/21 06/25/21 23:24 05:30 09:00 WBC RBC Hgb 8.3 L Hct 27.0 L MCV MCH RDW Plt Count Lymph % (Auto) [place] % (Auto) Lymph # (Auto) [place] # (Auto) Seg Neutrophils % Seg Neuts % (Manual) Lymphocytes % (Manual) Monocytes % (Manual) Basophils % (Manual) Seg Neutrophils # Seg Neutrophils # Man Lymphocytes # (Manual) Monocytes # (Manual) PT INR APTT Fibrinogen D-Dimer ABG pH POC ABG pCO2 POC ABG pO2 ABG pO2 ABG HCO3 ABG O2 Saturation ABG Base Excess ABG Hemoglobin ABG Oxyhemoglobin Oxyhemoglobin Sodium Potassium Chloride Carbon Dioxide BUN Creatinine Glucose POC Glucose 170 H 151 H Lactic Acid Calcium Phosphorus Magnesium AST ALT Alkaline Phosphatase C-Reactive Protein Total Protein Albumin Triglycerides Ur Specific [place] Urine Creatinine Crossmatch 02/06/25/21 06/25/21 11:29 14:24 16:48 WBC RBC Hgb 8.5 L Hct 27.5 L MCV MCH RDW Plt Count Lymph % (Auto) [place] % (Auto) Lymph # (Auto) [place] # (Auto) Seg Neutrophils % Seg Neuts % (Manual) Lymphocytes % (Manual) Monocytes % (Manual) Basophils % (Manual) Seg Neutrophils # Seg Neutrophils # Man Lymphocytes # (Manual) Monocytes # (Manual) PT INR APTT Fibrinogen D-Dimer ABG pH POC ABG pCO2 POC ABG pO2 ABG pO2 ABG HCO3 ABG O2 Saturation ABG Base Excess ABG Hemoglobin ABG Oxyhemoglobin Oxyhemoglobin Sodium Potassium Chloride Carbon Dioxide BUN Creatinine Glucose POC Glucose 189 H 224 H Lactic Acid Calcium Phosphorus Magnesium AST ALT Alkaline Phosphatase C-Reactive Protein Total Protein Albumin Triglycerides Ur Specific [place] Urine Creatinine Crossmatch 06/25/21 06/25/21 06/25/21 23:39 Unknown Unknown WBC 16.5 H RBC 2.90 L Hgb 8.0 L Hct 23.8 L MCV MCH RDW 22.8 H Plt Count Lymph % (Auto) [place] % (Auto) Lymph # (Auto) [place] # (Auto) Seg Neutrophils % Seg Neuts % (Manual) Lymphocytes % (Manual) Monocytes % (Manual) Basophils % (Manual) Seg Neutrophils # Seg Neutrophils # Man Lymphocytes # (Manual) Monocytes # (Manual) PT INR APTT Fibrinogen D-Dimer ABG pH POC ABG pCO2 POC ABG pO2 ABG pO2 ABG HCO3 ABG O2 Saturation ABG Base Excess ABG Hemoglobin ABG Oxyhemoglobin Oxyhemoglobin Sodium 149 H Potassium Chloride 115.6 H Carbon Dioxide BUN 28 H Creatinine Glucose 157 H POC Glucose 187 H Lactic Acid Calcium 8.0 L Phosphorus Magnesium AST ALT Alkaline Phosphatase C-Reactive Protein Total Protein Albumin Triglycerides Ur Specific [place] Urine Creatinine Crossmatch 06/26/21 06/26/21 06/26/21 05:22 05:29 05:29 WBC 16.2 H RBC 3.03 L Hgb 8.0 L Hct 25.1 L MCV MCH 26 L RDW 23.2 H Plt Count Lymph % (Auto) [place] % (Auto) Lymph # (Auto) [place] # (Auto) Seg Neutrophils % Seg Neuts % (Manual) Lymphocytes % (Manual) Monocytes % (Manual) Basophils % (Manual) Seg Neutrophils # Seg Neutrophils # Man Lymphocytes # (Manual) Monocytes # (Manual) PT INR APTT Fibrinogen D-Dimer ABG pH POC ABG pCO2 POC ABG pO2 ABG pO2 ABG HCO3 ABG O2 Saturation ABG Base Excess ABG Hemoglobin ABG Oxyhemoglobin Oxyhemoglobin Sodium 150 H Potassium Chloride 114.8 H Carbon Dioxide BUN 29 H Creatinine Glucose 229 H POC Glucose 211 H Lactic Acid Calcium 8.2 L Phosphorus Magnesium AST ALT Alkaline Phosphatase C-Reactive Protein Total Protein Albumin Triglycerides Ur Specific [place] Urine Creatinine Crossmatch 06/26/21 06/26/21 06/26/21 11:05 15:59 22:00 WBC RBC Hgb Hct MCV MCH RDW Plt Count Lymph % (Auto) [place] % (Auto) Lymph # (Auto) [place] # (Auto) Seg Neutrophils % Seg Neuts % (Manual) Lymphocytes % (Manual) Monocytes % (Manual) Basophils % (Manual) Seg Neutrophils # Seg Neutrophils # Man Lymphocytes # (Manual) Monocytes # (Manual) PT INR APTT Fibrinogen D-Dimer ABG pH POC ABG pCO2 POC ABG pO2 ABG pO2 ABG HCO3 ABG O2 Saturation ABG Base Excess ABG Hemoglobin ABG Oxyhemoglobin Oxyhemoglobin Sodium Potassium Chloride Carbon Dioxide BUN Creatinine Glucose POC Glucose 213 H 222 H 161 H Lactic Acid Calcium Phosphorus Magnesium AST ALT Alkaline Phosphatase C-Reactive Protein Total Protein Albumin Triglycerides Ur Specific [place] Urine Creatinine Crossmatch 06/26/21 06/27/21 06/27/21 23:24 04:15 04:15 WBC 14.3 H RBC 2.96 L Hgb 8.1 L Hct 24.6 L MCV MCH 27 L RDW 23.0 H Plt Count Lymph % (Auto) [place] % (Auto) Lymph # (Auto) [place] # (Auto) Seg Neutrophils % Seg Neuts % (Manual) Lymphocytes % (Manual) Monocytes % (Manual) Basophils % (Manual) Seg Neutrophils # Seg Neutrophils # Man Lymphocytes # (Manual) Monocytes # (Manual) PT INR APTT Fibrinogen D-Dimer ABG pH POC ABG pCO2 POC ABG pO2 ABG pO2 ABG HCO3 ABG O2 Saturation ABG Base Excess ABG Hemoglobin ABG Oxyhemoglobin Oxyhemoglobin Sodium 150 H Potassium Chloride 113.8 H Carbon Dioxide BUN 26 H Creatinine Glucose 246 H POC Glucose 164 H Lactic Acid Calcium 7.8 L Phosphorus Magnesium AST ALT Alkaline Phosphatase C-Reactive Protein Total Protein Albumin Triglycerides Ur Specific [place] Urine Creatinine Crossmatch 06/27/21 06/27/21 06/27/21 05:44 11:07 16:06 WBC RBC Hgb Hct MCV MCH RDW Plt Count Lymph % (Auto) [place] % (Auto) Lymph # (Auto) [place] # (Auto) Seg Neutrophils % Seg Neuts % (Manual) Lymphocytes % (Manual) Monocytes % (Manual) Basophils % (Manual) Seg Neutrophils # Seg Neutrophils # Man Lymphocytes # (Manual) Monocytes # (Manual) PT INR APTT Fibrinogen D-Dimer ABG pH POC ABG pCO2 POC ABG pO2 ABG pO2 ABG HCO3 ABG O2 Saturation ABG Base Excess ABG Hemoglobin ABG Oxyhemoglobin Oxyhemoglobin Sodium Potassium Chloride Carbon Dioxide BUN Creatinine Glucose POC Glucose 226 H 204 H 224 H Lactic Acid Calcium Phosphorus Magnesium AST ALT Alkaline Phosphatase C-Reactive Protein Total Protein Albumin Triglycerides Ur Specific [place] Urine Creatinine Crossmatch 06/27/21 06/28/21 06/28/21 23:49 04:00 04:00 WBC 15.4 H RBC 3.05 L Hgb 8.2 L Hct 25.0 L MCV MCH 27 L RDW 22.6 H Plt Count Lymph % (Auto) [place] % (Auto) Lymph # (Auto) [place] # (Auto) Seg Neutrophils % Seg Neuts % (Manual) Lymphocytes % (Manual) Monocytes % (Manual) Basophils % (Manual) Seg Neutrophils # Seg Neutrophils # Man Lymphocytes # (Manual) Monocytes # (Manual) PT INR APTT Fibrinogen D-Dimer ABG pH POC ABG pCO2 POC ABG pO2 ABG pO2 ABG HCO3 ABG O2 Saturation ABG Base Excess ABG Hemoglobin ABG Oxyhemoglobin Oxyhemoglobin Sodium 152 H Potassium 3.0 L Chloride 114.9 H Carbon Dioxide BUN 24 H Creatinine Glucose 158 H POC Glucose 195 H Lactic Acid Calcium 8.1 L Phosphorus Magnesium AST ALT Alkaline Phosphatase C-Reactive Protein Total Protein Albumin Triglycerides Ur Specific [place] Urine Creatinine Crossmatch 06/28/21 06/28/21 06/28/21 05:05 11:47 17:21 WBC RBC Hgb Hct MCV MCH RDW Plt Count Lymph % (Auto) [place] % (Auto) Lymph # (Auto) [place] # (Auto) Seg Neutrophils % Seg Neuts % (Manual) Lymphocytes % (Manual) Monocytes % (Manual) Basophils % (Manual) Seg Neutrophils # Seg Neutrophils # Man Lymphocytes # (Manual) Monocytes # (Manual) PT INR APTT Fibrinogen D-Dimer ABG pH POC ABG pCO2 POC ABG pO2 ABG pO2 ABG HCO3 ABG O2 Saturation ABG Base Excess ABG Hemoglobin ABG Oxyhemoglobin Oxyhemoglobin Sodium Potassium Chloride Carbon Dioxide BUN Creatinine Glucose POC Glucose 121 H 164 H 166 H Lactic Acid Calcium Phosphorus Magnesium AST ALT Alkaline Phosphatase C-Reactive Protein Total Protein Albumin Triglycerides Ur Specific [place] Urine Creatinine Crossmatch 06/28/21 06/28/21 06/29/21 18:14 21:54 00:55 WBC RBC Hgb Hct MCV MCH RDW Plt Count Lymph % (Auto) [place] % (Auto) Lymph # (Auto) [place] # (Auto) Seg Neutrophils % Seg Neuts % (Manual) Lymphocytes % (Manual) Monocytes % (Manual) Basophils % (Manual) Seg Neutrophils # Seg Neutrophils # Man Lymphocytes # (Manual) Monocytes # (Manual) PT INR APTT Fibrinogen D-Dimer ABG pH POC ABG pCO2 POC ABG pO2 ABG pO2 ABG HCO3 ABG O2 Saturation ABG Base Excess ABG Hemoglobin ABG Oxyhemoglobin Oxyhemoglobin Sodium Potassium Chloride Carbon Dioxide BUN Creatinine Glucose POC Glucose 150 H 148 H 176 H Lactic Acid Calcium Phosphorus Magnesium AST ALT Alkaline Phosphatase C-Reactive Protein Total Protein Albumin Triglycerides Ur Specific [place] Urine Creatinine Crossmatch 06/29/21 06/29/21 06/29/21 04:00 04:00 05:20 WBC 15.3 H RBC 3.04 L Hgb 8.0 L Hct 25.0 L MCV MCH 26 L RDW 22.3 H Plt Count Lymph % (Auto) [place] % (Auto) Lymph # (Auto) [place] # (Auto) Seg Neutrophils % Seg Neuts % (Manual) Lymphocytes % (Manual) Monocytes % (Manual) Basophils % (Manual) Seg Neutrophils # Seg Neutrophils # Man Lymphocytes # (Manual) Monocytes # (Manual) PT INR APTT Fibrinogen D-Dimer ABG pH POC ABG pCO2 POC ABG pO2 ABG pO2 ABG HCO3 ABG O2 Saturation ABG Base Excess ABG Hemoglobin ABG Oxyhemoglobin Oxyhemoglobin Sodium Potassium 3.1 L Chloride 108.7 H Carbon Dioxide BUN 20 H Creatinine Glucose 194 H POC Glucose 185 H Lactic Acid Calcium 8.0 L Phosphorus Magnesium AST ALT Alkaline Phosphatase C-Reactive Protein Total Protein Albumin Triglycerides Ur Specific [place] Urine Creatinine Crossmatch 06/29/21 06/29/21 06/30/21 12:18 17:20 00:49 WBC RBC Hgb Hct MCV MCH RDW Plt Count Lymph % (Auto) [place] % (Auto) Lymph # (Auto) [place] # (Auto) Seg Neutrophils % Seg Neuts % (Manual) Lymphocytes % (Manual) Monocytes % (Manual) Basophils % (Manual) Seg Neutrophils # Seg Neutrophils # Man Lymphocytes # (Manual) Monocytes # (Manual) PT INR APTT Fibrinogen D-Dimer ABG pH POC ABG pCO2 POC ABG pO2 ABG pO2 ABG HCO3 ABG O2 Saturation ABG Base Excess ABG Hemoglobin ABG Oxyhemoglobin Oxyhemoglobin Sodium Potassium Chloride Carbon Dioxide BUN Creatinine Glucose POC Glucose 135 H 185 H 156 H Lactic Acid Calcium Phosphorus Magnesium AST ALT Alkaline Phosphatase C-Reactive Protein Total Protein Albumin Triglycerides Ur Specific [place] Urine Creatinine Crossmatch 06/30/21 06/30/21 06/30/21 04:25 04:25 08:14 WBC 13.0 H RBC 3.19 L Hgb 8.2 L Hct 26.2 L MCV MCH 26 L RDW 22.3 H Plt Count Lymph % (Auto) [place] % (Auto) Lymph # (Auto) [place] # (Auto) Seg Neutrophils % Seg Neuts % (Manual) 81.0 H Lymphocytes % (Manual) 10.0 L Monocytes % (Manual) 8.0 H Basophils % (Manual) Seg Neutrophils # Seg Neutrophils # Man 10.5 H Lymphocytes # (Manual) Monocytes # (Manual) 1.0 H PT INR APTT Fibrinogen D-Dimer ABG pH POC ABG pCO2 POC ABG pO2 ABG pO2 ABG HCO3 ABG O2 Saturation ABG Base Excess ABG Hemoglobin ABG Oxyhemoglobin Oxyhemoglobin Sodium Potassium 3.0 L Chloride Carbon Dioxide BUN 20 H Creatinine Glucose 104 H POC Glucose 119 H Lactic Acid Calcium 8.3 L Phosphorus Magnesium AST ALT Alkaline Phosphatase C-Reactive Protein Total Protein Albumin Triglycerides Ur Specific [place] Urine Creatinine Crossmatch 06/30/21 06/30/21 06/30/21 11:36 16:24 22:44 WBC RBC Hgb Hct MCV MCH RDW Plt Count Lymph % (Auto) [place] % (Auto) Lymph # (Auto) [place] # (Auto) Seg Neutrophils % Seg Neuts % (Manual) Lymphocytes % (Manual) Monocytes % (Manual) Basophils % (Manual) Seg Neutrophils # Seg Neutrophils # Man Lymphocytes # (Manual) Monocytes # (Manual) PT INR APTT Fibrinogen D-Dimer ABG pH POC ABG pCO2 POC ABG pO2 ABG pO2 ABG HCO3 ABG O2 Saturation ABG Base Excess ABG Hemoglobin ABG Oxyhemoglobin Oxyhemoglobin Sodium Potassium Chloride Carbon Dioxide BUN Creatinine Glucose POC Glucose 154 H 208 H 174 H Lactic Acid Calcium Phosphorus Magnesium AST ALT Alkaline Phosphatase C-Reactive Protein Total Protein Albumin Triglycerides Ur Specific [place] Urine Creatinine Crossmatch 07/01/21 07/01/21 07/01/21 05:29 05:29 05:54 WBC 11.9 H RBC 3.00 L Hgb 8.1 L Hct 24.4 L MCV MCH 27 L RDW 21.7 H Plt Count Lymph % (Auto) [place] % (Auto) Lymph # (Auto) [place] # (Auto) Seg Neutrophils % Seg Neuts % (Manual) Lymphocytes % (Manual) Monocytes % (Manual) Basophils % (Manual) Seg Neutrophils # Seg Neutrophils # Man Lymphocytes # (Manual) Monocytes # (Manual) PT INR APTT Fibrinogen D-Dimer ABG pH POC ABG pCO2 POC ABG pO2 ABG pO2 ABG HCO3 ABG O2 Saturation ABG Base Excess ABG Hemoglobin ABG Oxyhemoglobin Oxyhemoglobin Sodium Potassium Chloride Carbon Dioxide BUN Creatinine Glucose 177 H POC Glucose 170 H Lactic Acid Calcium Phosphorus Magnesium AST ALT Alkaline Phosphatase C-Reactive Protein Total Protein Albumin Triglycerides Ur Specific [place] Urine Creatinine Crossmatch 07/01/21 07/02/21 07/02/21 10:54 05:05 10:18 WBC RBC Hgb Hct MCV MCH RDW Plt Count Lymph % (Auto) [place] % (Auto) Lymph # (Auto) [place] # (Auto) Seg Neutrophils % Seg Neuts % (Manual) Lymphocytes % (Manual) Monocytes % (Manual) Basophils % (Manual) Seg Neutrophils # Seg Neutrophils # Man Lymphocytes # (Manual) Monocytes # (Manual) PT INR APTT Fibrinogen D-Dimer ABG pH 7.488 H POC ABG pCO2 POC ABG pO2 ABG pO2 97.2 H ABG HCO3 27.1 H ABG O2 Saturation ABG Base Excess 3.5 H ABG Hemoglobin 7.9 L ABG Oxyhemoglobin Oxyhemoglobin Sodium Potassium Chloride Carbon Dioxide BUN Creatinine Glucose POC Glucose 184 H 182 H Lactic Acid Calcium Phosphorus Magnesium AST ALT Alkaline Phosphatase C-Reactive Protein Total Protein Albumin Triglycerides Ur Specific [place] Urine Creatinine Crossmatch 07/02/21 07/02/21 07/02/21 12:14 16:18 22:27 WBC RBC Hgb Hct MCV MCH RDW Plt Count Lymph % (Auto) [place] % (Auto) Lymph # (Auto) [place] # (Auto) Seg Neutrophils % Seg Neuts % (Manual) Lymphocytes % (Manual) Monocytes % (Manual) Basophils % (Manual) Seg Neutrophils # Seg Neutrophils # Man Lymphocytes # (Manual) Monocytes # (Manual) PT INR APTT Fibrinogen D-Dimer ABG pH 7.199 L* POC ABG pCO2 POC ABG pO2 ABG pO2 104.5 H ABG HCO3 30.3 H ABG O2 Saturation ABG Base Excess ABG Hemoglobin 9.8 L ABG Oxyhemoglobin Oxyhemoglobin 94.6 L Sodium Potassium Chloride Carbon Dioxide BUN Creatinine Glucose POC Glucose 184 H 194 H Lactic Acid Calcium Phosphorus Magnesium AST ALT Alkaline Phosphatase C-Reactive Protein Total Protein Albumin Triglycerides Ur Specific [place] Urine Creatinine Crossmatch 07/03/21 07/03/21 07/03/21 09:47 10:44 11:24 WBC RBC 3.01 L Hgb 8.3 L Hct 24.3 L MCV MCH RDW 21.7 H Plt Count Lymph % (Auto) 8.4 L [place] % (Auto) Lymph # (Auto) 0.8 L [place] # (Auto) Seg Neutrophils % 80.6 H Seg Neuts % (Manual) Lymphocytes % (Manual) Monocytes % (Manual) Basophils % (Manual) Seg Neutrophils # Seg Neutrophils # Man Lymphocytes # (Manual) Monocytes # (Manual) PT INR APTT Fibrinogen D-Dimer ABG pH POC ABG pCO2 POC ABG pO2 ABG pO2 ABG HCO3 ABG O2 Saturation ABG Base Excess ABG Hemoglobin ABG Oxyhemoglobin Oxyhemoglobin Sodium Potassium 3.0 L Chloride Carbon Dioxide BUN Creatinine Glucose 200 H POC Glucose 180 H Lactic Acid Calcium 8.3 L Phosphorus Magnesium AST ALT Alkaline Phosphatase C-Reactive Protein Total Protein Albumin Triglycerides Ur Specific [place] Urine Creatinine Crossmatch 07/03/21 07/03/21 07/03/21 16:34 22:14 22:15 WBC RBC Hgb Hct MCV MCH RDW Plt Count Lymph % (Auto) [place] % (Auto) Lymph # (Auto) [place] # (Auto) Seg Neutrophils % Seg Neuts % (Manual) Lymphocytes % (Manual) Monocytes % (Manual) Basophils % (Manual) Seg Neutrophils # Seg Neutrophils # Man Lymphocytes # (Manual) Monocytes # (Manual) PT INR APTT Fibrinogen D-Dimer ABG pH POC ABG pCO2 POC ABG pO2 ABG pO2 ABG HCO3 ABG O2 Saturation ABG Base Excess ABG Hemoglobin ABG Oxyhemoglobin Oxyhemoglobin Sodium Potassium Chloride Carbon Dioxide BUN Creatinine Glucose POC Glucose 165 H 174 H 180 H Lactic Acid Calcium Phosphorus Magnesium AST ALT Alkaline Phosphatase C-Reactive Protein Total Protein Albumin Triglycerides Ur Specific [place] Urine Creatinine Crossmatch 07/04/21 07/04/21 07/04/21 00:28 01:44 05:07 WBC RBC Hgb Hct MCV MCH RDW Plt Count Lymph % (Auto) [place] % (Auto) Lymph # (Auto) [place] # (Auto) Seg Neutrophils % Seg Neuts % (Manual) Lymphocytes % (Manual) Monocytes % (Manual) Basophils % (Manual) Seg Neutrophils # Seg Neutrophils # Man Lymphocytes # (Manual) Monocytes # (Manual) PT INR APTT Fibrinogen D-Dimer ABG pH POC ABG pCO2 POC ABG pO2 ABG pO2 107.7 H ABG HCO3 26.7 H ABG O2 Saturation ABG Base Excess ABG Hemoglobin 7.5 L ABG Oxyhemoglobin Oxyhemoglobin Sodium Potassium Chloride Carbon Dioxide BUN Creatinine Glucose POC Glucose 246 H 179 H Lactic Acid Calcium Phosphorus Magnesium AST ALT Alkaline Phosphatase C-Reactive Protein Total Protein Albumin Triglycerides Ur Specific [place] Urine Creatinine Crossmatch 07/04/21 07/04/21 07/04/21 05:13 05:13 10:52 WBC RBC 3.12 L Hgb 8.5 L Hct 25.2 L MCV MCH 27 L RDW 21.3 H Plt Count Lymph % (Auto) 6.1 L [place] % (Auto) Lymph # (Auto) 0.6 L [place] # (Auto) Seg Neutrophils % 85.0 H Seg Neuts % (Manual) Lymphocytes % (Manual) Monocytes % (Manual) Basophils % (Manual) Seg Neutrophils # 8.0 H Seg Neutrophils # Man Lymphocytes # (Manual) Monocytes # (Manual) PT INR APTT Fibrinogen D-Dimer ABG pH POC ABG pCO2 POC ABG pO2 ABG pO2 ABG HCO3 ABG O2 Saturation ABG Base Excess ABG Hemoglobin ABG Oxyhemoglobin Oxyhemoglobin Sodium Potassium 3.4 L Chloride Carbon Dioxide BUN Creatinine Glucose 205 H POC Glucose 146 H Lactic Acid Calcium Phosphorus Magnesium AST ALT Alkaline Phosphatase C-Reactive Protein Total Protein Albumin Triglycerides Ur Specific [place] Urine Creatinine Crossmatch 07/04/21 07/04/21 07/05/21 16:22 23:52 04:38 WBC RBC Hgb Hct MCV MCH RDW Plt Count Lymph % (Auto) [place] % (Auto) Lymph # (Auto) [place] # (Auto) Seg Neutrophils % Seg Neuts % (Manual) Lymphocytes % (Manual) Monocytes % (Manual) Basophils % (Manual) Seg Neutrophils # Seg Neutrophils # Man Lymphocytes # (Manual) Monocytes # (Manual) PT INR APTT Fibrinogen D-Dimer ABG pH POC ABG pCO2 POC ABG pO2 ABG pO2 ABG HCO3 ABG O2 Saturation ABG Base Excess ABG Hemoglobin ABG Oxyhemoglobin Oxyhemoglobin Sodium Potassium 3.0 L Chloride Carbon Dioxide BUN 18 H Creatinine Glucose 174 H POC Glucose 154 H 193 H Lactic Acid Calcium Phosphorus 2.20 L Magnesium AST ALT Alkaline Phosphatase C-Reactive Protein Total Protein Albumin Triglycerides Ur Specific [place] Urine Creatinine Crossmatch 07/05/21 07/05/21 07/05/21 04:38 05:15 12:35 WBC RBC 2.95 L Hgb 7.8 L Hct 23.9 L MCV MCH 27 L RDW 21.0 H Plt Count Lymph % (Auto) [place] % (Auto) Lymph # (Auto) [place] # (Auto) Seg Neutrophils % Seg Neuts % (Manual) Lymphocytes % (Manual) Monocytes % (Manual) Basophils % (Manual) Seg Neutrophils # Seg Neutrophils # Man Lymphocytes # (Manual) Monocytes # (Manual) PT INR APTT Fibrinogen D-Dimer ABG pH POC ABG pCO2 POC ABG pO2 ABG pO2 ABG HCO3 ABG O2 Saturation ABG Base Excess ABG Hemoglobin ABG Oxyhemoglobin Oxyhemoglobin Sodium Potassium Chloride Carbon Dioxide BUN Creatinine Glucose POC Glucose 163 H 121 H Lactic Acid Calcium Phosphorus Magnesium AST ALT Alkaline Phosphatase C-Reactive Protein Total Protein Albumin Triglycerides Ur Specific [place] Urine Creatinine Crossmatch 07/05/21 07/05/21 07/05/21 18:27 21:05 23:11 WBC RBC Hgb Hct MCV MCH RDW Plt Count Lymph % (Auto) [place] % (Auto) Lymph # (Auto) [place] # (Auto) Seg Neutrophils % Seg Neuts % (Manual) Lymphocytes % (Manual) Monocytes % (Manual) Basophils % (Manual) Seg Neutrophils # Seg Neutrophils # Man Lymphocytes # (Manual) Monocytes # (Manual) PT INR APTT Fibrinogen D-Dimer ABG pH POC ABG pCO2 POC ABG pO2 ABG pO2 ABG HCO3 ABG O2 Saturation ABG Base Excess ABG Hemoglobin ABG Oxyhemoglobin Oxyhemoglobin Sodium Potassium Chloride Carbon Dioxide BUN Creatinine Glucose POC Glucose 183 H 170 H 184 H Lactic Acid Calcium Phosphorus Magnesium AST ALT Alkaline Phosphatase C-Reactive Protein Total Protein Albumin Triglycerides Ur Specific [place] Urine Creatinine Crossmatch 07/06/21 07/06/21 07/06/21 04:39 05:13 12:12 WBC RBC Hgb Hct MCV MCH RDW Plt Count Lymph % (Auto) [place] % (Auto) Lymph # (Auto) [place] # (Auto) Seg Neutrophils % Seg Neuts % (Manual) Lymphocytes % (Manual) Monocytes % (Manual) Basophils % (Manual) Seg Neutrophils # Seg Neutrophils # Man Lymphocytes # (Manual) Monocytes # (Manual) PT INR APTT Fibrinogen D-Dimer ABG pH POC ABG pCO2 POC ABG pO2 ABG pO2 ABG HCO3 ABG O2 Saturation ABG Base Excess ABG Hemoglobin ABG Oxyhemoglobin Oxyhemoglobin Sodium Potassium 3.4 L Chloride Carbon Dioxide BUN Creatinine Glucose 180 H POC Glucose 183 H 153 H Lactic Acid Calcium Phosphorus Magnesium AST ALT Alkaline Phosphatase C-Reactive Protein Total Protein Albumin Triglycerides Ur Specific [place] Urine Creatinine Crossmatch 07/06/21 07/06/21 07/07/21 17:30 21:44 00:22 WBC RBC Hgb Hct MCV MCH RDW Plt Count Lymph % (Auto) [place] % (Auto) Lymph # (Auto) [place] # (Auto) Seg Neutrophils % Seg Neuts % (Manual) Lymphocytes % (Manual) Monocytes % (Manual) Basophils % (Manual) Seg Neutrophils # Seg Neutrophils # Man Lymphocytes # (Manual) Monocytes # (Manual) PT INR APTT Fibrinogen D-Dimer ABG pH POC ABG pCO2 POC ABG pO2 ABG pO2 ABG HCO3 ABG O2 Saturation ABG Base Excess ABG Hemoglobin ABG Oxyhemoglobin Oxyhemoglobin Sodium Potassium Chloride Carbon Dioxide BUN Creatinine Glucose POC Glucose 166 H 155 H 188 H Lactic Acid Calcium Phosphorus Magnesium AST ALT Alkaline Phosphatase C-Reactive Protein Total Protein Albumin Triglycerides Ur Specific [place] Urine Creatinine Crossmatch 07/07/21 07/07/21 07/07/21 04:10 05:48 07:39 WBC RBC Hgb Hct MCV MCH RDW Plt Count Lymph % (Auto) [place] % (Auto) Lymph # (Auto) [place] # (Auto) Seg Neutrophils % Seg Neuts % (Manual) Lymphocytes % (Manual) Monocytes % (Manual) Basophils % (Manual) Seg Neutrophils # Seg Neutrophils # Man Lymphocytes # (Manual) Monocytes # (Manual) PT INR APTT Fibrinogen D-Dimer ABG pH POC ABG pCO2 POC ABG pO2 ABG pO2 ABG HCO3 ABG O2 Saturation ABG Base Excess ABG Hemoglobin ABG Oxyhemoglobin Oxyhemoglobin Sodium Potassium 3.1 L Chloride Carbon Dioxide BUN Creatinine Glucose 138 H POC Glucose 141 H 147 H Lactic Acid Calcium Phosphorus 2.40 L Magnesium AST ALT Alkaline Phosphatase C-Reactive Protein Total Protein Albumin Triglycerides Ur Specific [place] Urine Creatinine Crossmatch 07/07/21 07/07/21 07/07/21 11:17 16:06 23:58 WBC RBC Hgb Hct MCV MCH RDW Plt Count Lymph % (Auto) [place] % (Auto) Lymph # (Auto) [place] # (Auto) Seg Neutrophils % Seg Neuts % (Manual) Lymphocytes % (Manual) Monocytes % (Manual) Basophils % (Manual) Seg Neutrophils # Seg Neutrophils # Man Lymphocytes # (Manual) Monocytes # (Manual) PT INR APTT Fibrinogen D-Dimer ABG pH POC ABG pCO2 POC ABG pO2 ABG pO2 ABG HCO3 ABG O2 Saturation ABG Base Excess ABG Hemoglobin ABG Oxyhemoglobin Oxyhemoglobin Sodium Potassium Chloride Carbon Dioxide BUN Creatinine Glucose POC Glucose 161 H 173 H 198 H Lactic Acid Calcium Phosphorus Magnesium AST ALT Alkaline Phosphatase C-Reactive Protein Total Protein Albumin Triglycerides Ur Specific [place] Urine Creatinine Crossmatch 07/08/21 07/08/21 07/08/21 04:20 04:20 06:12 WBC RBC 3.16 L Hgb 8.3 L Hct 25.1 L MCV MCH 26 L RDW 21.0 H Plt Count Lymph % (Auto) [place] % (Auto) Lymph # (Auto) [place] # (Auto) Seg Neutrophils % Seg Neuts % (Manual) Lymphocytes % (Manual) Monocytes % (Manual) Basophils % (Manual) Seg Neutrophils # Seg Neutrophils # Man Lymphocytes # (Manual) Monocytes # (Manual) PT INR APTT Fibrinogen D-Dimer ABG pH POC ABG pCO2 POC ABG pO2 ABG pO2 ABG HCO3 ABG O2 Saturation ABG Base Excess ABG Hemoglobin ABG Oxyhemoglobin Oxyhemoglobin Sodium Potassium Chloride Carbon Dioxide BUN Creatinine Glucose 183 H POC Glucose 189 H Lactic Acid Calcium Phosphorus Magnesium AST ALT Alkaline Phosphatase C-Reactive Protein Total Protein Albumin Triglycerides Ur Specific [place] Urine Creatinine Crossmatch 07/08/21 07/08/21 07/08/21 11:33 18:04 21:42 WBC RBC Hgb Hct MCV MCH RDW Plt Count Lymph % (Auto) [place] % (Auto) Lymph # (Auto) [place] # (Auto) Seg Neutrophils % Seg Neuts % (Manual) Lymphocytes % (Manual) Monocytes % (Manual) Basophils % (Manual) Seg Neutrophils # Seg Neutrophils # Man Lymphocytes # (Manual) Monocytes # (Manual) PT INR APTT Fibrinogen D-Dimer ABG pH POC ABG pCO2 POC ABG pO2 ABG pO2 ABG HCO3 ABG O2 Saturation ABG Base Excess ABG Hemoglobin ABG Oxyhemoglobin Oxyhemoglobin Sodium Potassium Chloride Carbon Dioxide BUN Creatinine Glucose POC Glucose 161 H 128 H 160 H Lactic Acid Calcium Phosphorus Magnesium AST ALT Alkaline Phosphatase C-Reactive Protein Total Protein Albumin Triglycerides Ur Specific [place] Urine Creatinine Crossmatch 07/09/21 07/09/21 07/09/21 06:03 06:10 06:10 WBC RBC 2.96 L Hgb 7.8 L Hct 23.5 L MCV MCH 27 L RDW 20.9 H Plt Count Lymph % (Auto) [place] % (Auto) Lymph # (Auto) [place] # (Auto) Seg Neutrophils % Seg Neuts % (Manual) Lymphocytes % (Manual) Monocytes % (Manual) Basophils % (Manual) Seg Neutrophils # Seg Neutrophils # Man Lymphocytes # (Manual) Monocytes # (Manual) PT INR APTT Fibrinogen D-Dimer ABG pH POC ABG pCO2 POC ABG pO2 ABG pO2 ABG HCO3 ABG O2 Saturation ABG Base Excess ABG Hemoglobin ABG Oxyhemoglobin Oxyhemoglobin Sodium Potassium Chloride Carbon Dioxide BUN Creatinine Glucose 168 H POC Glucose 174 H Lactic Acid Calcium 8.2 L Phosphorus Magnesium AST ALT Alkaline Phosphatase C-Reactive Protein Total Protein Albumin Triglycerides Ur Specific [place] Urine Creatinine Crossmatch 07/09/21 07/09/21 07/09/21 11:45 18:45 21:33 WBC RBC Hgb Hct MCV MCH RDW Plt Count Lymph % (Auto) [place] % (Auto) Lymph # (Auto) [place] # (Auto) Seg Neutrophils % Seg Neuts % (Manual) Lymphocytes % (Manual) Monocytes % (Manual) Basophils % (Manual) Seg Neutrophils # Seg Neutrophils # Man Lymphocytes # (Manual) Monocytes # (Manual) PT INR APTT Fibrinogen D-Dimer ABG pH POC ABG pCO2 POC ABG pO2 ABG pO2 ABG HCO3 ABG O2 Saturation ABG Base Excess ABG Hemoglobin ABG Oxyhemoglobin Oxyhemoglobin Sodium Potassium Chloride Carbon Dioxide BUN Creatinine Glucose POC Glucose 148 H 187 H 156 H Lactic Acid Calcium Phosphorus Magnesium AST ALT Alkaline Phosphatase C-Reactive Protein Total Protein Albumin Triglycerides Ur Specific [place] Urine Creatinine Crossmatch 07/10/21 07/10/21 07/10/21 00:01 05:24 11:12 WBC RBC Hgb Hct MCV MCH RDW Plt Count Lymph % (Auto) [place] % (Auto) Lymph # (Auto) [place] # (Auto) Seg Neutrophils % Seg Neuts % (Manual) Lymphocytes % (Manual) Monocytes % (Manual) Basophils % (Manual) Seg Neutrophils # Seg Neutrophils # Man Lymphocytes # (Manual) Monocytes # (Manual) PT INR APTT Fibrinogen D-Dimer ABG pH POC ABG pCO2 POC ABG pO2 ABG pO2 ABG HCO3 ABG O2 Saturation ABG Base Excess ABG Hemoglobin ABG Oxyhemoglobin Oxyhemoglobin Sodium Potassium Chloride Carbon Dioxide BUN Creatinine Glucose POC Glucose 191 H 203 H 174 H Lactic Acid Calcium Phosphorus Magnesium AST ALT Alkaline Phosphatase C-Reactive Protein Total Protein Albumin Triglycerides Ur Specific [place] Urine Creatinine Crossmatch 07/10/21 07/10/21 07/10/21 15:56 20:58 23:54 WBC RBC Hgb Hct MCV MCH RDW Plt Count Lymph % (Auto) [place] % (Auto) Lymph # (Auto) [place] # (Auto) Seg Neutrophils % Seg Neuts % (Manual) Lymphocytes % (Manual) Monocytes % (Manual) Basophils % (Manual) Seg Neutrophils # Seg Neutrophils # Man Lymphocytes # (Manual) Monocytes # (Manual) PT INR APTT Fibrinogen D-Dimer ABG pH POC ABG pCO2 POC ABG pO2 ABG pO2 ABG HCO3 ABG O2 Saturation ABG Base Excess ABG Hemoglobin ABG Oxyhemoglobin Oxyhemoglobin Sodium Potassium Chloride Carbon Dioxide BUN Creatinine Glucose POC Glucose 182 H 165 H 196 H Lactic Acid Calcium Phosphorus Magnesium AST ALT Alkaline Phosphatase C-Reactive Protein Total Protein Albumin Triglycerides Ur Specific [place] Urine Creatinine Crossmatch 07/11/21 07/11/21 07/11/21 04:04 04:04 05:34 WBC RBC 3.50 L Hgb 8.7 L Hct 27.6 L MCV MCH 25 L RDW 20.6 H Plt Count Lymph % (Auto) [place] % (Auto) Lymph # (Auto) [place] # (Auto) Seg Neutrophils % Seg Neuts % (Manual) Lymphocytes % (Manual) Monocytes % (Manual) Basophils % (Manual) 2.0 H Seg Neutrophils # Seg Neutrophils # Man Lymphocytes # (Manual) 0.8 L Monocytes # (Manual) PT INR APTT Fibrinogen D-Dimer ABG pH POC ABG pCO2 POC ABG pO2 ABG pO2 ABG HCO3 ABG O2 Saturation ABG Base Excess ABG Hemoglobin ABG Oxyhemoglobin Oxyhemoglobin Sodium Potassium 3.3 L Chloride Carbon Dioxide BUN Creatinine Glucose 199 H POC Glucose 191 H Lactic Acid Calcium Phosphorus Magnesium AST ALT Alkaline Phosphatase C-Reactive Protein Total Protein Albumin Triglycerides Ur Specific [place] Urine Creatinine Crossmatch 07/11/21 07/11/21 07/11/21 11:49 15:57 21:33 WBC RBC Hgb Hct MCV MCH RDW Plt Count Lymph % (Auto) [place] % (Auto) Lymph # (Auto) [place] # (Auto) Seg Neutrophils % Seg Neuts % (Manual) Lymphocytes % (Manual) Monocytes % (Manual) Basophils % (Manual) Seg Neutrophils # Seg Neutrophils # Man Lymphocytes # (Manual) Monocytes # (Manual) PT INR APTT Fibrinogen D-Dimer ABG pH POC ABG pCO2 POC ABG pO2 ABG pO2 ABG HCO3 ABG O2 Saturation ABG Base Excess ABG Hemoglobin ABG Oxyhemoglobin Oxyhemoglobin Sodium Potassium Chloride Carbon Dioxide BUN Creatinine Glucose POC Glucose 195 H 207 H 192 H Lactic Acid Calcium Phosphorus Magnesium AST ALT Alkaline Phosphatase C-Reactive Protein Total Protein Albumin Triglycerides Ur Specific [place] Urine Creatinine Crossmatch 07/12/21 07/12/21 07/12/21 00:04 05:54 11:53 WBC RBC Hgb Hct MCV MCH RDW Plt Count Lymph % (Auto) [place] % (Auto) Lymph # (Auto) [place] # (Auto) Seg Neutrophils % Seg Neuts % (Manual) Lymphocytes % (Manual) Monocytes % (Manual) Basophils % (Manual) Seg Neutrophils # Seg Neutrophils # Man Lymphocytes # (Manual) Monocytes # (Manual) PT INR APTT Fibrinogen D-Dimer ABG pH POC ABG pCO2 POC ABG pO2 ABG pO2 ABG HCO3 ABG O2 Saturation ABG Base Excess ABG Hemoglobin ABG Oxyhemoglobin Oxyhemoglobin Sodium Potassium Chloride Carbon Dioxide BUN Creatinine Glucose POC Glucose 189 H 220 H 209 H Lactic Acid Calcium Phosphorus Magnesium AST ALT Alkaline Phosphatase C-Reactive Protein Total Protein Albumin Triglycerides Ur Specific [place] Urine Creatinine Crossmatch 07/12/21 07/13/21 07/13/21 23:48 05:55 11:36 WBC RBC Hgb Hct MCV MCH RDW Plt Count Lymph % (Auto) [place] % (Auto) Lymph # (Auto) [place] # (Auto) Seg Neutrophils % Seg Neuts % (Manual) Lymphocytes % (Manual) Monocytes % (Manual) Basophils % (Manual) Seg Neutrophils # Seg Neutrophils # Man Lymphocytes # (Manual) Monocytes # (Manual) PT INR APTT Fibrinogen D-Dimer ABG pH POC ABG pCO2 POC ABG pO2 ABG pO2 ABG HCO3 ABG O2 Saturation ABG Base Excess ABG Hemoglobin ABG Oxyhemoglobin Oxyhemoglobin Sodium Potassium Chloride Carbon Dioxide BUN Creatinine Glucose POC Glucose 246 H 158 H 156 H Lactic Acid Calcium Phosphorus Magnesium AST ALT Alkaline Phosphatase C-Reactive Protein Total Protein Albumin Triglycerides Ur Specific [place] Urine Creatinine Crossmatch 07/13/21 07/13/21 07/14/21 17:28 23:43 05:52 WBC RBC Hgb Hct MCV MCH RDW Plt Count Lymph % (Auto) [place] % (Auto) Lymph # (Auto) [place] # (Auto) Seg Neutrophils % Seg Neuts % (Manual) Lymphocytes % (Manual) Monocytes % (Manual) Basophils % (Manual) Seg Neutrophils # Seg Neutrophils # Man Lymphocytes # (Manual) Monocytes # (Manual) PT INR APTT Fibrinogen D-Dimer ABG pH POC ABG pCO2 POC ABG pO2 ABG pO2 ABG HCO3 ABG O2 Saturation ABG Base Excess ABG Hemoglobin ABG Oxyhemoglobin Oxyhemoglobin Sodium Potassium Chloride Carbon Dioxide BUN Creatinine Glucose POC Glucose 212 H 210 H 171 H Lactic Acid Calcium Phosphorus Magnesium AST ALT Alkaline Phosphatase C-Reactive Protein Total Protein Albumin Triglycerides Ur Specific [place] Urine Creatinine Crossmatch
--- NOTE | 2021-07-14 12:42 | Progress Note ---
Assessment and Plan Assessment and plan: Hospital Course: 07/01: Transfer from ICU on 06/30. Patient was stable with a trach and T-piece on 5 L. Tolerating tube feeds. 07/02: Patient remains on T-piece with trach in place. On 5 L of O2. She is alert and responds appropriately but not well due to trach tube. Tolerating tube feeds. Appears comfortable. No complaints. No new events reported. Case management reports patient with plans for LTAC placement. 07/03: Patient remains on T-piece with trach in place. On 5 L of O2. Patient tolerating tube feeds. We will check CT of head, neck and chest per pulmonary and general surgery recommendations based on CBC this morning. If leukocytosis persists we will proceed with studies. Patient remains afebrile today. 07/04: s/p X1 dose of IV lasix, patient is now stable on the T-piece via trach at 28% and 5L. Patient remains afebrile, leukocytosis improved, and CXR wiht no significant change. PRN [place] added for pain management. Electrolytes repleted 07/05: Remains stable on T-piece. Complaint of lack of sleep and tiredness this am, Trazadone and melatonin added for sleep. Continue PT- increase mobility and possibly OOB to chair today. Continue pain management. Electrolytes repleted. 07/06: Rested overnight. And continue to tolerate T-piece at 28% and 5L. Continue trazadone and melatonin at night for sleep and pain control with PRN analgesia. Discussed possibility of down sizing the trach to an 8 Shiley with General Surgery. Per Surgery downsizing would not be easy nor safe at this time. Plan to order #10 PSMV instead. Case management to arrange possible placement SNF vs subacute rehab. 07/07: JEREMIAS overnight. New report of BLE pain and swelling, per patient was on gabapentin and smooth muscle relaxers at home. BLE did appear swollen with palpable pedal pulses. Will get BLE doppler, resume gabapentin, and continue PRN analgesic for pain control. Continue mobility/strenght and conditioning with PT. Electrolytes repleted, repeat labs in the am. 07/08: Patient scheduled to have a downsize of Shiley today in the OR with surgery, surgery also requested neurology consult for MS work-up. Lidocaine patches to bilateral lower extremities discontinued. 07/09: Transfer to [facility]. s/p trach downsize by surgery. Will need aggressive PT/OT/ST. Possible eval by ST for MPV. Placement now of concern. Will continue coordination with CM. Neuro: doubt MG. suspects myopathy likely ICU acquired from prolonged immobilization. Again she will require aggressive PT rehab. 07/10: Appears volume overloaded. Lasix 40 mg IV x 2 doses ordered. Will need continued aggressive PT. ST eval for PSMV (still has not arrived per notes). 07/11: CT brain negative. MRI appears to have been cancelled, unclear why. Nonetheless doubt primary neurological etiology for weakness...suspect ICU acquired weakness. Continue discharge planning, rehab/snf is likely disposition. Will continue to work along side CM. 07/12: Awaiting placement for snf. 07/13: Awaiting placement for snf. 07/14: Awaiting placement for snf. Assessment and plan: This is a 76-year-old female with HTN, Coumadin use, dental caries, PVD s/p stenting to right leg, DM, arthritis, depression, gout and ? Pulmonary hypertension admitted with Jeremiah's angina s/p emergent cric with bleeding, right sided pneumothorax, supratherapeutic INR, hypernatremia, hyperchloremia, severe metabolic acidosis, hyperglycemia and hypocalcemia Neuro: Acute pain, ICU acquired weakness/myopathy, r/o myasthenia gravis, h/o depression, arthritis -prn fent pushes -Avoid delirium -Reorientation as needed -Maintain sleep-wake cycle -PT consulted; recommends LTAC -Neurology consulted, appreciate recommendations -B12, A1c, CK, TSH pending -MRI brain to rule out bleeding and old watershed infarct -gabapentin Cardiac: S/p cardiac arrest, h/o htn, PVD s/p stenting Right leg -06/14 cardiac arrest with ROSC -S/p vasopressor support with Levophed and Fabian-Synephrine -Blood pressure monitoring per protocol -Antihypertensive regimen: Hydralazine 100 mg every 8 -06/13 Echocardiogram EF 65-70% Respiratory: Acute hypoxic respiratory failure, right pneumothorax -CCM consulted, appreciate recommendations -S/p emergent cricothyroidectomy with surgery with 8.00 ETT -s/p trach 06/19 with surgery s/p #10 Shiley -07/08 Shiley downsized to #8 -T-piece trials started 06/26 -ST: Unable to tolerate Passy-Ann valve on 06/28 but has since tolerated 10 min -misplaced PSMV during transport and awaiting replacement -s/p Right chest tube removed 06/29 -06/13 bronchoscopy showed possible blood clot in left lung which may be acting as mucous plug however it was left in place due to possible bleeding inside lung if removed. -CXR post cardiac arrest shows clearance of mucous plug -06/16 CT chest shows moderate right pneumothorax with collapse of right upper lobe, right thoracostomy tube terminates at the collapsed right upper lobe, b ilateral bronchus opacities compatible with infectious/inflammatory etiology, bilateral small pleural effusion, extensive subcutaneous air, small fluid collection in the anterior mediastinum is nonspecific -VAP bundle -SPO2 monitoring GI: Protein calorie malnutrition -24 hours -1545 mL -PPI -BR: senna, colace -s/p TPN -Nutrition consult for tube feeding -S/p PEG : Urinary retention, acute kidney injury possibly secondary to vasomotor nephropathy (resolved) -Strict intake and output -Renally dose medications -Avoid nephrotoxic medications -Daily weights -Consider nephrology consult if worsens -S/p 7 L LR bolus -Replete potassium -Lujan catheter replaced due to urinary retention ID: 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 dental caries -CT neck with contrast showed a significant right floor of mild swelling with extension into the submandibular and submental spaces, significant thickening and inflammation involving the right pharyngeal wall, with the parapharyngeal and retropharyngeal spaces at the level of the thyroid cartilage, epiglottis significantly swollen and so are the aryepiglottic folds resulting in significant airway narrowing at this level, no lymphadenopathy, symmetric subm andibular and parathyroid glands, S few scattered caries but no periapical lucencies, nonspecific calcification along the right lateral oropharynx, no definite stone seen within the territory of the submandibular gland ducts, no suspicious rashes lesion -Infectious disease and general surgery consulted, appreciate recommendations -s/p cricothyroidectomy -Will follow surgery to direction and treatment of injury -Per surgery may have mucosal injury -Intra-Op findings include post pharyngeal swelling and bruising -s/p Solu-Medrol -Per ID: if leucocytosis persists after being off steroids, obtain CT neck with IV contrast to rule out any abscess -Antibiotic therapy Zosyn x 21 days completed -COVID-19 PCR negative -f/u blood culture -Monitor WBC and temperature curve -s/p 5L normal saline bolus in ED, 7 L LR bolus in ICU Heme: Coagulopathy (resolved), supratherapeutic INR (resolved), acute blood loss anemia (resolved), possible component of hemorrhagic shock (resolved), leukocytosis (resolved) -Patient is on Coumadin at home -S/p 5 FFP, 8 PRBC, vitamin K x3 -Trend CBC -Presented with H/H of 10.3/34.6 and decreased to 6.7/22.4 -INR 8.18-> 4.55-> 2.1-> 1.23-> 1.16-> 1.31 -Transfuse hemoglobin less than 7 -Lovenox subq (prophylactic) -Monitor for signs of bleeding -SCDs to BLE while in bed Endo: h/o DM, gout -S/p Lantus 25 units x 1 -Lantus subcu, titrate as needed -Avoid hypoglycemia -SSI -Accu-Cheks q. 6hr The high probability of a clinically significant, sudden or life threatening deterioration of the [multi] system(s) required my full and direct attention, intervention and personal management. The aggregate critical care time was [60] minutes. This time is in addition to time spent performing reported procedures but includes the following: [x] Data Review and interpretation [x] Patient assessment and monitoring of vital signs [x] Documentation [x] Medication orders and management Disposition Plan: IMCU Total Time Spent with Patient (Minutes): 60 History Interval history: No acute complaints resting comfortably. States her leg pain is well controlled Hospitalist Physical - Physical exam Narrative exam: - General Apperance Constitutional: comfortable - EENT EENT: PERRL, mucous membranes moist - Respiratory Respiratory: lungs clear, rhonchi - Cardiovascular Cardiovascular: regular rate, normal S1, normal S2 Extremities: no peripheral edema bilat, no clubbing, cyanosis - Gastrointestinal Gastrointestinal: normoactive bowel sounds - Integumentary Integumentary: normal - Neurologic Cranial nerve examination: PERRL, EOMI, intact Speech examination: other (tracheostomy tube, no aphasia) Detailed motor examination: other (Bilateral proximal motor weakness upper> Lower, suppressed reflexes, no cranial weakness is noted neck muscles are intact) Motor examination - right side: 05/08: biceps - Constitutional Vitals: Temp Pulse Resp BP Pulse Ox 98.7 F 92 H 18 129/73 96 07/14/21 12:31 07/14/21 11:00 07/14/21 11:00 07/14/21 11:00 07/14/21 11:00 General appearance: Present: no acute distress, obese (Morbidly obese), other (On T-piece with trach in place.) HEART Score - HEART Score Troponin: Troponin T < 0.010 ng/mL (0.00-0.029) 06/11/21 23:21 Results - Labs CBC & Chem 7: 07/11/21 04:04 07/11/21 04:04 Labs: Laboratory Last Values WBC 5.5 K/mm3 (4.5-11.0) 07/11/21 04:04 RBC 3.50 M/mm3 (3.65-5.03) L 07/11/21 04:04 Hgb 8.7 gm/dl (10.1-14.3) L 07/11/21 04:04 Hct 27.6 % (30.3-42.9) L 07/11/21 04:04 MCV 79 fl (79-97) 07/11/21 04:04 MCH 25 pg (28-32) L 07/11/21 04:04 MCHC 32 % (30-34) 07/11/21 04:04 RDW 20.6 % (13.2-15.2) H 07/11/21 04:04 Plt Count 355 K/mm3 (140-440) 07/11/21 04:04 Lymph % (Auto) 6.1 % (13.4-35.0) L 07/04/21 05:13 [place] % (Auto) Manufacturing Quality Engineer 07/11/21 04:04 Eos % (Auto) 1.8 % (0.0-4.3) 07/04/21 05:13 Baso % (Auto) 0.5 % (0.0-1.8) 07/04/21 05:13 Lymph # (Auto) 0.6 K/mm3 (1.2-5.4) L 07/04/21 05:13 [place] # (Auto) 0.6 K/mm3 (0.0-0.8) 07/04/21 05:13 Eos # (Auto) 0.2 K/mm3 (0.0-0.4) 07/04/21 05:13 Baso # (Auto) 0.0 K/mm3 (0.0-0.1) 07/04/21 05:13 Add Manual Diff Complete 07/11/21 04:04 Total Counted 100 07/11/21 04:04 Seg Neutrophils % 85.0 % (40.0-70.0) H 07/04/21 05:13 Seg Neuts % (Manual) 66.0 % (40.0-70.0) 07/11/21 04:04 Band Neutrophils % 3.0 % 07/11/21 04:04 Lymphocytes % (Manual) 15.0 % (13.4-35.0) 07/11/21 04:04 Reactive Lymphs % (Man) 0 % 07/11/21 04:04 Monocytes % (Manual) 6.0 % (0.0-7.3) 07/11/21 04:04 Eosinophils % (Manual) 3.0 % (0.0-4.3) 07/11/21 04:04 Basophils % (Manual) 2.0 % (0.0-1.8) H 07/11/21 04:04 Metamyelocytes % 4.0 % 07/11/21 04:04 Myelocytes % 1.0 % 07/11/21 04:04 Promyelocytes % 0 % 07/11/21 04:04 Blast Cells % 0 % 07/11/21 04:04 Nucleated RBC % Not Reportable 07/11/21 04:04 Seg Neutrophils # 8.0 K/mm3 (1.8-7.7) H 07/04/21 05:13 Seg Neutrophils # Man 3.6 K/mm3 (1.8-7.7) 07/11/21 04:04 Band Neutrophils # 0.2 K/mm3 07/11/21 04:04 Lymphocytes # (Manual) 0.8 K/mm3 (1.2-5.4) L 07/11/21 04:04 Abs React Lymphs (Man) 0.0 K/mm3 07/11/21 04:04 Monocytes # (Manual) 0.3 K/mm3 (0.0-0.8) 07/11/21 04:04 Eosinophils # (Manual) 0.2 K/mm3 (0.0-0.4) 07/11/21 04:04 Basophils # (Manual) 0.1 K/mm3 (0.0-0.1) 07/11/21 04:04 Metamyelocytes # 0.2 K/mm3 07/11/21 04:04 Myelocytes # 0.1 K/mm3 07/11/21 04:04 Promyelocytes # 0.0 K/mm3 07/11/21 04:04 Blast Cells # 0.0 K/mm3 07/11/21 04:04 WBC Morphology Not Reportable 07/11/21 04:04 Hypersegmented Neuts Not Reportable 07/11/21 04:04 Hyposegmented Neuts Not Reportable 07/11/21 04:04 Hypogranular Neuts Not Reportable 07/11/21 04:04 Smudge Cells Not Reportable 07/11/21 04:04 Toxic Granulation Not Reportable 07/11/21 04:04 Toxic Vacuolation Not Reportable 07/11/21 04:04 Dohle Bodies Not Reportable 07/11/21 04:04 Pelger-Huet Anomaly Not Reportable 07/11/21 04:04 Dennis Rods Not Reportable 07/11/21 04:04 Platelet Estimate Consistent w auto 07/11/21 04:04 Clumped Platelets Not Reportable 07/11/21 04:04 Plt Clumps, EDTA Not Reportable 07/11/21 04:04 Large Platelets Not Reportable 07/11/21 04:04 Giant Platelets Not Reportable 07/11/21 04:04 Platelet Satelliting Not Reportable 07/11/21 04:04 Plt Morphology Comment Not Reportable 07/11/21 04:04 RBC Morphology Not Reportable 07/11/21 04:04 Dimorphic RBCs Not Reportable 07/11/21 04:04 Polychromasia Not Reportable 07/11/21 04:04 Hypochromasia 2+ 07/11/21 04:04 Poikilocytosis Not Reportable 07/11/21 04:04 Anisocytosis 2+ 07/11/21 04:04 Microcytosis Not Reportable 07/11/21 04:04 Macrocytosis Not Reportable 07/11/21 04:04 Spherocytes 1+ 07/11/21 04:04 Pappenheimer Bodies Not Reportable 07/11/21 04:04 Sickle Cells Not Reportable 07/11/21 04:04 Target Cells 2+ 07/11/21 04:04 Tear Drop Cells 1+ 07/11/21 04:04 Ovalocytes 1+ 07/11/21 04:04 Stomatocytes Few 06/12/21 01:45 Helmet Cells Not Reportable 07/11/21 04:04 [place] Bodies Not Reportable 07/11/21 04:04 Scott Rings Not Reportable 07/11/21 04:04 Nelsy Cells Not Reportable 07/11/21 04:04 Bite Cells Not Reportable 07/11/21 04:04 Crenated Cell Not Reportable 07/11/21 04:04 Elliptocytes Not Reportable 07/11/21 04:04 Acanthocytes (Spur) Not Reportable 07/11/21 04:04 Rouleaux Not Reportable 07/11/21 04:04 Hemoglobin C Crystals Not Reportable 07/11/21 04:04 Schistocytes Rare 07/11/21 04:04 Malaria parasites Not Reportable 07/11/21 04:04 Edin Bodies Not Reportable 07/11/21 04:04 Hem Pathologist Commnt No 07/11/21 04:04 PT 18.3 Sec. (12.2-14.9) H 06/20/21 04:33 INR 1.37 (0.87-1.13) H 06/20/21 04:33 APTT 26.4 Sec. (24.2-36.6) 06/13/21 Unknown Fibrinogen 546 mg/dl (211-480) H 06/13/21 Unknown D-Dimer 1244.63 ng/mlDDU (0-234) H 06/13/21 Unknown ABG pH 7.448 pH Units (7.350-7.450) 07/04/21 01:44 POC ABG pCO2 25.6 mmHg (32.0-48.0) L 06/13/21 04:31 ABG pCO2 39.5 mm Hg 07/04/21 01:44 POC ABG pO2 138.8 mmHg (83-108) H 06/13/21 04:31 ABG pO2 107.7 mm Hg (80.0-90.0) H 07/04/21 01:44 POC ABG HCO3 21.4 06/13/21 04:31 ABG HCO3 26.7 mmol/L (20.0-26.0) H 07/04/21 01:44 ABG O2 Saturation 98.0 % (95.0-99.0) 07/04/21 01:44 ABG O2 Content 10.3 (0.0-44) 07/04/21 01:44 POC ABG Base Excess -0.7 06/13/21 04:31 ABG Base Excess 2.5 mmol/L (-2.0-3.0) 07/04/21 01:44 ABG Hemoglobin 7.5 gm/dl (12.0-16.0) L 07/04/21 01:44 ABG Oxyhemoglobin 98.1 (94-98) H 06/13/21 04:31 ABG Carboxyhemoglobin 1.6 % (0.0-5.0) 07/04/21 01:44 ABG Methemoglobin 0.6 % (0.0-1.5) 07/04/21 01:44 Oxyhemoglobin 95.9 % (95.0-99.0) 07/04/21 01:44 Carboxyhemoglobin 0.8 (0.5-1.5) 06/13/21 04:31 FiO2 35 % 07/04/21 01:44 FiO2 % 40.0 06/13/21 04:31 Sodium 139 mmol/L (137-145) 07/11/21 04:04 Potassium 3.3 mmol/L (3.6-5.0) L 07/11/21 04:04 Chloride 99.7 mmol/L (98-107) 07/11/21 04:04 Carbon Dioxide 27 mmol/L (22-30) 07/11/21 04:04 Anion Gap 16 mmol/L 07/11/21 04:04 BUN 15 mg/dL (7-17) 07/11/21 04:04 Creatinine 0.7 mg/dL (0.6-1.2) 07/11/21 04:04 Estimated GFR > 60 ml/min 07/11/21 04:04 BUN/Creatinine Ratio 21 % 07/11/21 04:04 Glucose 199 mg/dL (65-100) H 07/11/21 04:04 POC Glucose 151 mg/dL (70-105) H 07/14/21 11:59 Hemoglobin A1c 6.0 % (4-6) 07/11/21 04:04 Lactic Acid 5.30 mmol/L (0.7-2.0) H* 06/13/21 15:45 Calcium 8.5 mg/dL (8.4-10.2) 07/11/21 04:04 Phosphorus 3.70 mg/dL (2.5-4.5) D 07/08/21 04:20 Magnesium 1.90 mg/dL (1.7-2.3) 07/08/21 04:20 Total Bilirubin 0.40 mg/dL (0.1-1.2) 06/15/21 03:56 AST 64 units/L (5-40) H 06/15/21 03:56 ALT 106 units/L (7-56) H 06/15/21 03:56 Alkaline Phosphatase 55 units/L (35-129) 06/15/21 03:56 Troponin T < 0.010 ng/mL (0.00-0.029) 06/11/21 23:21 C-Reactive Protein 3.30 mg/dL (0.00-1.30) H 06/16/21 04:32 Total Protein 5.1 g/dL (6.3-8.2) L 06/15/21 03:56 Albumin 2.9 g/dL (3.9-5) L 06/15/21 03:56 Albumin/Globulin Ratio 1.3 % 06/15/21 03:56 Triglycerides 254 mg/dL (2-149) H 06/21/21 04:42 Vitamin B12 647.0 pg/mL (211-911) 07/08/21 15:36 TSH 1.050 mlU/mL (0.270-4.200) 07/08/21 15:36 Urine Color Yellow (Yellow) 06/12/21 17:00 Urine Turbidity Clear (Clear) 06/12/21 17:00 Urine pH 5.0 (5.0-7.0) 06/12/21 17:00 Ur Specific [place] 1.035 (1.003-1.030) H 06/12/21 17:00 Urine Protein 30 mg/dl mg/dL (Negative) 06/12/21 17:00 Urine Glucose (UA) 50 mg/dL (Negative) 06/12/21 17:00 Urine Ketones Tr mg/dL (Negative) 06/12/21 17:00 Urine Blood Neg (Negative) 06/12/21 17:00 Urine Nitrite Neg (Negative) 06/12/21 17:00 Urine Bilirubin Neg (Negative) 06/12/21 17:00 Urine Urobilinogen < 2.0 mg/dL (<2.0) 06/12/21 17:00 Ur Leukocyte Esterase Neg (Negative) 06/12/21 17:00 Urine WBC (Auto) < 1.0 /HPF (0.0-6.0) 06/12/21 17:00 Urine RBC (Auto) < 1.0 /HPF (0.0-6.0) 06/12/21 17:00 Urine Creatinine 81.1 mg/dL (0.1-20.0) H 06/15/21 10:40 Urine Sodium 42 mmol/L 06/15/21 10:40 Coronavirus (PCR) Negative (Negative) 06/12/21 09:50 Blood Type O POSITIVE 06/24/21 06:40 Antibody Screen Negative 06/24/21 06:40 Crossmatch See Detail 06/24/21 06:40 Lujan/IV: Voiding Method Indwelling Catheter Active Medications - Current Medications Current Medications: Generic Name Dose Route Start Last Admin Trade Name Freq PRN Reason Stop Dose Admin Hydrocodone Bitart/Acetaminophen 1 each 07/04/21 10:00 07/10/21 18:36 Hydrocodone/Acetaminophen 5-325 Mg Tab PO 1 each Q6H PRN Administration Pain, Moderate (4-6) Amlodipine Besylate 5 mg 06/23/21 10:00 07/14/21 09:02 Amlodipine 5 Mg Tab PO 5 mg QDAY JOLENE Administration Lipase/Protease/Amylase 1 each 06/19/21 19:20 Lipase 10,500/Protease 25,000/Amylase 43,750 (Units) Dr Ramón CHOI PRN PRN For Clogged Feeding Tube Atorvastatin Calcium 20 mg 06/22/21 22:00 07/13/21 21:09 Atorvastatin 20 Mg Tab PO 20 mg QHS JOLENE Administration Baclofen 10 mg 07/07/21 11:39 07/09/21 02:15 Baclofen 10 Mg Tab PO 10 mg BID PRN Administration Muscle pain Enoxaparin Sodium 40 mg 06/30/21 22:00 07/13/21 21:08 Enoxaparin 40 Mg/0.4 Ml Inj SUB-Q 40 mg QDAY@2200 JOLENE Administration Protocol Famotidine 20 mg 06/24/21 22:00 07/14/21 09:02 Famotidine 20 Mg Tab FEEDTUBE 20 mg BID JOLENE Administration Gabapentin 100 mg 07/07/21 14:00 07/14/21 08:22 Gabapentin 100 Mg Cap PO 100 mg TID JOLENE Administration Hydralazine HCl 100 mg 06/22/21 19:00 07/14/21 06:25 Hydralazine 100 Mg Tab FEEDTUBE 100 mg Q8HR JOLENE Administration Hydromorphone HCl 0.5 mg 07/10/21 12:00 07/13/21 21:10 Hydromorphone 1 Mg/1 Ml Inj IV 0.5 mg Q4H PRN Administration Pain , Severe (7-10) Insulin Glargine 30 units 07/04/21 22:00 07/13/21 21:10 Insulin Glargine 100 Units/Ml SUB-Q 30 units QHS JOLENE Administration Insulin Human Lispro 0 unit 06/12/21 12:00 07/14/21 12:08 Insulin Lispro 100 Unit/Ml SUB-Q 3 unit Q6HR JOLENE Administration Protocol Labetalol HCl 10 mg 06/21/21 18:00 07/10/21 10:27 Labetalol 20 Mg/4 Ml Inj IV 10 mg Q4HR PRN Administration Hypertension Lidocaine HCl 15 ml 07/12/21 20:00 07/14/21 09:10 Magic Mouthwash 30ml PO 15 ml TID JOLENE Administration Melatonin 5 mg 07/05/21 22:00 07/13/21 21:08 Melatonin 5 Mg Tab PO 5 mg QHS JOLENE Administration Senna 8.8 mg 07/13/21 22:00 07/13/21 21:08 Sennosides Oral Liqd 8.8 Mg/5 Ml Oral Liqd PO 8.8 mg QHS JOLENE Administration Simple Syrup 15 ml 06/19/21 19:20 Simple Syrup 15 Ml FEEDTUBE PRN PRN Hypoglycemia Simple Syrup 30 ml 06/19/21 19:20 Simple Syrup 15 Ml FEEDTUBE PRN PRN Hypoglycemia Sodium Bicarbonate 325 mg 06/19/21 19:20 Sodium Bicarbonate 325 Mg Tab FEEDTUBE PRN PRN For Clogged Feeding Tube Sodium Chloride 10 ml 06/11/21 22:00 07/14/21 09:10 Sodium Chloride 0.9% 10 Ml Flush Syringe IV 10 ml BID JOLENE Administration Trazodone HCl 100 mg 07/05/21 22:00 07/13/21 21:07 Trazodone 50 Mg Tab PO 100 mg QHS JOLENE Administration Nutrition/Malnutrition Assess - Dietary Evaluation Nutrition/Malnutrition Findings: Nutrition Notes Start: 06/16/21 12:10 Freq: Status: Active Protocol: Document 07/08/21 14:32 BRITNI (Rec: 07/08/21 14:43 [facility] [id number]) Nutrition Notes Initial or Follow up Reassessment Current Diagnosis Diabetes,Hypertension, Respiratory Failure Other Pertinent Diagnosis Jeremiah's Angina, s/p cardiac arrest Current Diet TF-Vital AF 1.2 Quan at 50 ml/ hr Labs/Tests BG 183 POC Glu range since last assessment: 121-246 Pertinent Medications Reviewed Height 5 ft 8 in Weight 108.6 kg [place] Body Weight (kg) 63.63 BMI 36.3 Weight change and time frame Wt change noted Weight Status Obese Subjective/Other Information TF off at time of visit (12:38 ). Pt scheduled for trach down-sizing today. Pt currently on T-piece at 28% and awaiting placement of Passey-Ann valve. (R) chest tube removed on 06/29. Per RN, pt had been tolerating TF at goal rate. Percent of energy/protein needs met: 95% energy 71% pro Burn Absent Trauma Absent #1 Nutrition Diagnosis Inadequate oral intake Diagnosis Progress(for reassessment Continues documentation) Is patient on ventilator? No Is Patient Ambulatory and/or Out of Bed No REE-([facility]-confined to bed) 1961.292 Kcal/Kg value to use for calculation 14 Approximate Energy Requirements Using 1520 kcal/Kg Calculation Used for Recommendations Kcal/kg Additional Notes Pro needs 2g/kg IBW: 127g/day Fluid needs 1ml/kcal Nutrition Intervention Nutrition Support: Continue Vital AF 1.2 Quan at 50 ml/hr with 80ml water flush q4h. Kcal 1,440 Protein (gm) 90 Carbohydrates (gm) 133 Fat (gm) 65 Fluid (mL) 973 Fiber (gm) 6 Goal #1 TF tolerance Goal #2 TF to meet nutrient needs as best possible Follow-Up By: 07/15/21 Additional Comments F/U: stable TF, wt, resp status
[2021-07-14] MEDS: HYDROcodone/ACETAMINOPHEN 5-325 MG TAB PO PRN (17:50)
[2021-07-14] MEDS: MELATONIN 5 MG TAB PO SCH (21:34)
[2021-07-14] MEDS: ENOXAPARIN 40 MG/0.4 ML INJ SUB-Q SCH (21:34)
[2021-07-14] MEDS: INSULIN GLARGINE 100 UNITS/ML SUB-Q SCH (21:34)
[2021-07-14] MEDS: traZODone 50 MG TAB PO SCH (21:34)
[2021-07-14] MEDS: SENNOSIDES ORAL LIQD 8.8 MG/5 ML ORAL LIQD PO SCH (21:35)
[2021-07-15] MEDS: HYDROcodone/ACETAMINOPHEN 5-325 MG TAB PO PRN ×3 (01:29→20:29)
[2021-07-15] MEDS: HYDROmorphone 1 MG/1 ML INJ IV PRN (03:24)
[2021-07-15] MEDS: INSULIN LISPRO 100 UNIT/ML SUB-Q SCH ×3 (06:21→18:21)
[2021-07-15] MEDS: hydrALAZINE 100 MG TAB FEEDTUBE SCH ×3 (06:24→20:59)
[2021-07-15] MEDS: FAMOTIDINE 20 MG TAB FEEDTUBE SCH ×2 (09:13→20:59)
[2021-07-15] MEDS: amLODIPine 5 MG TAB PO SCH (09:14)
[2021-07-15] MEDS: GABAPENTIN 100 MG CAP PO SCH ×3 (09:14→20:29)
--- NOTE | 2021-07-15 12:12 | Progress Note ---
Assessment and Plan Assessment and plan: Hospital Course: 07/01: Transfer from ICU on 06/30. Patient was stable with a trach and T-piece on 5 L. Tolerating tube feeds. 07/02: Patient remains on T-piece with trach in place. On 5 L of O2. She is alert and responds appropriately but not well due to trach tube. Tolerating tube feeds. Appears comfortable. No complaints. No new events reported. Case management reports patient with plans for LTAC placement. 07/03: Patient remains on T-piece with trach in place. On 5 L of O2. Patient tolerating tube feeds. We will check CT of head, neck and chest per pulmonary and general surgery recommendations based on CBC this morning. If leukocytosis persists we will proceed with studies. Patient remains afebrile today. 07/04: s/p X1 dose of IV lasix, patient is now stable on the T-piece via trach at 28% and 5L. Patient remains afebrile, leukocytosis improved, and CXR wiht no significant change. PRN [place] added for pain management. Electrolytes repleted 07/05: Remains stable on T-piece. Complaint of lack of sleep and tiredness this am, Trazadone and melatonin added for sleep. Continue PT- increase mobility and possibly OOB to chair today. Continue pain management. Electrolytes repleted. 07/06: Rested overnight. And continue to tolerate T-piece at 28% and 5L. Continue trazadone and melatonin at night for sleep and pain control with PRN analgesia. Discussed possibility of down sizing the trach to an 8 Shiley with General Surgery. Per Surgery downsizing would not be easy nor safe at this time. Plan to order #10 PSMV instead. Case management to arrange possible placement SNF vs subacute rehab. 07/07: JEREMIAS overnight. New report of BLE pain and swelling, per patient was on gabapentin and smooth muscle relaxers at home. BLE did appear swollen with palpable pedal pulses. Will get BLE doppler, resume gabapentin, and continue PRN analgesic for pain control. Continue mobility/strenght and conditioning with PT. Electrolytes repleted, repeat labs in the am. 07/08: Patient scheduled to have a downsize of Shiley today in the OR with surgery, surgery also requested neurology consult for MS work-up. Lidocaine patches to bilateral lower extremities discontinued. 07/09: Transfer to [facility]. s/p trach downsize by surgery. Will need aggressive PT/OT/ST. Possible eval by ST for MPV. Placement now of concern. Will continue coordination with CM. Neuro: doubt MG. suspects myopathy likely ICU acquired from prolonged immobilization. Again she will require aggressive PT rehab. 07/10: Appears volume overloaded. Lasix 40 mg IV x 2 doses ordered. Will need continued aggressive PT. ST eval for PSMV (still has not arrived per notes). 07/11: CT brain negative. MRI appears to have been cancelled, unclear why. Nonetheless doubt primary neurological etiology for weakness...suspect ICU acquired weakness. Continue discharge planning, rehab/snf is likely disposition. Will continue to work along side CM. 07/12: Awaiting placement for snf. 07/13: Awaiting placement for snf. 07/14: Awaiting placement for snf. 07/14: Awaiting placement for snf. D/w CM on rounds this AM. Awaiting auth for placement. Assessment and plan: This is a 76-year-old female with HTN, Coumadin use, dental caries, PVD s/p stenting to right leg, DM, arthritis, depression, gout and ? Pulmonary hypertension admitted with Jeremiah's angina s/p emergent cric with bleeding, right sided pneumothorax, supratherapeutic INR, hypernatremia, hyperchloremia, severe metabolic acidosis, hyperglycemia and hypocalcemia Neuro: Acute pain, ICU acquired weakness/myopathy, r/o myasthenia gravis, h/o depression, arthritis -prn fent pushes -Avoid delirium -Reorientation as needed -Maintain sleep-wake cycle -PT consulted; recommends LTAC -Neurology consulted, appreciate recommendations -B12, A1c, CK, TSH pending -MRI brain to rule out bleeding and old watershed infarct -gabapentin Cardiac: S/p cardiac arrest, h/o htn, PVD s/p stenting Right leg -06/14 cardiac arrest with ROSC -S/p vasopressor support with Levophed and Fabian-Synephrine -Blood pressure monitoring per protocol -Antihypertensive regimen: Hydralazine 100 mg every 8 -06/13 Echocardiogram EF 65-70% Respiratory: Acute hypoxic respiratory failure, right pneumothorax -CCM consulted, appreciate recommendations -S/p emergent cricothyroidectomy with surgery with 8.00 ETT -s/p trach 06/19 with surgery s/p #10 Shiley -07/08 Shiley downsized to #8 -T-piece trials started 06/26 -ST: Unable to tolerate Passy-Ann valve on 06/28 but has since tolerated 10 min -misplaced PSMV during transport and awaiting replacement -s/p Right chest tube removed 06/29 -06/13 bronchoscopy showed possible blood clot in left lung which may be acting as mucous plug however it was left in place due to possible bleeding inside lung if removed. -CXR post cardiac arrest shows clearance of mucous plug -06/16 CT chest shows moderate right pneumothorax with collapse of right upper lobe, right thoracostomy tube terminates at the collapsed right upper lobe, bilateral bronchus opacities compatible with infectious/inflammatory etiology, bilateral small pleural effusion, extensive subcutaneous air, small fluid collection in the anterior mediastinum is nonspecific -VAP bundle -SPO2 monitoring GI: Protein calorie malnutrition -24 hours -1545 mL -PPI -BR: senna, colace -s/p TPN -Nutrition consult for tube feeding -S/p PEG : Urinary retention, acute kidney injury possibly secondary to vasomotor nephropathy (resolved) -Strict intake and output -Renally dose medications -Avoid nephrotoxic medications -Daily weights -Consider nephrology consult if worsens -S/p 7 L LR bolus -Replete potassium -Lujan catheter replaced due to urinary retention ID: 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 dental caries -CT neck with contrast showed a significant right floor of mild swelling with extension into the submandibular and submental spaces, significant thickening and inflammation involving the right pharyngeal wall, with the parapharyngeal and retropharyngeal spaces at the level of the thyroid cartilage, epiglottis significantly swollen and so are the aryepiglottic folds resulting in significant airway narrowing at this level, no lymphadenopathy, symmetric submandibular and parathyroid glands, S few scattered caries but no periapical lucencies, nonspecific calcification along the right lateral oropharynx, no definite stone seen within the territory of the submandibular gland ducts, no suspicious rashes lesion -Infectious disease and general surgery consulted, appreciate recommendations -s/p cricothyroidectomy -Will follow surgery to direction and treatment of injury -Per surgery may have mucosal injury -Intra-Op findings include post pharyngeal swelling and bruising -s/p Solu-Medrol -Per ID: if leucocytosis persists after being off steroids, obtain CT neck with IV contrast to rule out any abscess -Antibiotic therapy Zosyn x 21 days completed -COVID-19 PCR negative -f/u blood culture -Monitor WBC and temperature curve -s/p 5L normal saline bolus in ED, 7 L LR bolus in ICU Heme: Coagulopathy (resolved), supratherapeutic INR (resolved), acute blood loss anemia (resolved), possible component of hemorrhagic shock (resolved), leukocytosis (resolved) -Patient is on Coumadin at home -S/p 5 FFP, 8 PRBC, vitamin K x3 -Trend CBC -Presented with H/H of 10.3/34.6 and decreased to 6.7/22.4 -INR 8.18-> 4.55-> 2.1-> 1.23-> 1.16-> 1.31 -Transfuse hemoglobin less than 7 -Lovenox subq (prophylactic) -Monitor for signs of bleeding -SCDs to BLE while in bed Endo: h/o DM, gout -S/p Lantus 25 units x 1 -Lantus subcu, titrate as needed -Avoid hypoglycemia -SSI -Accu-Cheks q. 6hr The high probability of a clinically significant, sudden or life threatening deterioration of the [multi] system(s) required my full and direct attention, intervention and personal management. The aggregate critical care time was [60] minutes. This time is in addition to time spent performing reported procedures but includes the following: [x] Data Review and interpretation [x] Patient assessment and monitoring of vital signs [x] Documentation [x] Medication orders and management Disposition Plan: IMCU Total Time Spent with Patient (Minutes): 60 History Interval history: No acute complaints resting comfortably. States her leg pain is well controlled Hospitalist Physical - Physical exam Narrative exam: - General Apperance Constitutional: comfortable - EENT EENT: PERRL, mucous membranes moist - Respiratory Respiratory: lungs clear, rhonchi - Cardiovascular Cardiovascular: regular rate, normal S1, normal S2 Extremities: no peripheral edema bilat, no clubbing, cyanosis - Gastrointestinal Gastrointestinal: normoactive bowel sounds - Integumentary Integumentary: normal - Neurologic Cranial nerve examination: PERRL, EOMI, intact Speech examination: other (tracheostomy tube, no aphasia) Detailed motor examination: other (Bilateral proximal motor weakness upper> Lower, suppressed reflexes, no cranial weakness is noted neck muscles are intact) Motor examination - right side: 05/08: biceps - Constitutional Vitals: Temp Pulse Resp BP Pulse Ox 98.0 F 94 H 23 130/60 97 07/15/21 07:28 07/15/21 11:00 07/15/21 11:00 07/15/21 11:00 07/15/21 11:00 General appearance: Present: no acute distress, obese (Morbidly obese), other (On T-piece with trach in place.) HEART Score - HEART Score Troponin: Troponin T < 0.010 ng/mL (0.00-0.029) 06/11/21 23:21 Results - Labs CBC & Chem 7: 07/11/21 04:04 07/11/21 04:04 Labs: Laboratory Last Values WBC 5.5 K/mm3 (4.5-11.0) 07/11/21 04:04 RBC 3.50 M/mm3 (3.65-5.03) L 07/11/21 04:04 Hgb 8.7 gm/dl (10.1-14.3) L 07/11/21 04:04 Hct 27.6 % (30.3-42.9) L 07/11/21 04:04 MCV 79 fl (79-97) 07/11/21 04:04 MCH 25 pg (28-32) L 07/11/21 04:04 MCHC 32 % (30-34) 07/11/21 04:04 RDW 20.6 % (13.2-15.2) H 07/11/21 04:04 Plt Count 355 K/mm3 (140-440) 07/11/21 04:04 Lymph % (Auto) 6.1 % (13.4-35.0) L 07/04/21 05:13 [place] % (Auto) Manuscripts Archivist 07/11/21 04:04 Eos % (Auto) 1.8 % (0.0-4.3) 07/04/21 05:13 Baso % (Auto) 0.5 % (0.0-1.8) 07/04/21 05:13 Lymph # (Auto) 0.6 K/mm3 (1.2-5.4) L 07/04/21 05:13 [place] # (Auto) 0.6 K/mm3 (0.0-0.8) 07/04/21 05:13 Eos # (Auto) 0.2 K/mm3 (0.0-0.4) 07/04/21 05:13 Baso # (Auto) 0.0 K/mm3 (0.0-0.1) 07/04/21 05:13 Add Manual Diff Complete 07/11/21 04:04 Total Counted 100 07/11/21 04:04 Seg Neutrophils % 85.0 % (40.0-70.0) H 07/04/21 05:13 Seg Neuts % (Manual) 66.0 % (40.0-70.0) 07/11/21 04:04 Band Neutrophils % 3.0 % 07/11/21 04:04 Lymphocytes % (Manual) 15.0 % (13.4-35.0) 07/11/21 04:04 Reactive Lymphs % (Man) 0 % 07/11/21 04:04 Monocytes % (Manual) 6.0 % (0.0-7.3) 07/11/21 04:04 Eosinophils % (Manual) 3.0 % (0.0-4.3) 07/11/21 04:04 Basophils % (Manual) 2.0 % (0.0-1.8) H 07/11/21 04:04 Metamyelocytes % 4.0 % 07/11/21 04:04 Myelocytes % 1.0 % 07/11/21 04:04 Promyelocytes % 0 % 07/11/21 04:04 Blast Cells % 0 % 07/11/21 04:04 Nucleated RBC % Not Reportable 07/11/21 04:04 Seg Neutrophils # 8.0 K/mm3 (1.8-7.7) H 07/04/21 05:13 Seg Neutrophils # Man 3.6 K/mm3 (1.8-7.7) 07/11/21 04:04 Band Neutrophils # 0.2 K/mm3 07/11/21 04:04 Lymphocytes # (Manual) 0.8 K/mm3 (1.2-5.4) L 07/11/21 04:04 Abs React Lymphs (Man) 0.0 K/mm3 07/11/21 04:04 Monocytes # (Manual) 0.3 K/mm3 (0.0-0.8) 07/11/21 04:04 Eosinophils # (Manual) 0.2 K/mm3 (0.0-0.4) 07/11/21 04:04 Basophils # (Manual) 0.1 K/mm3 (0.0-0.1) 07/11/21 04:04 Metamyelocytes # 0.2 K/mm3 07/11/21 04:04 Myelocytes # 0.1 K/mm3 07/11/21 04:04 Promyelocytes # 0.0 K/mm3 07/11/21 04:04 Blast Cells # 0.0 K/mm3 07/11/21 04:04 WBC Morphology Not Reportable 07/11/21 04:04 Hypersegmented Neuts Not Reportable 07/11/21 04:04 Hyposegmented Neuts Not Reportable 07/11/21 04:04 Hypogranular Neuts Not Reportable 07/11/21 04:04 Smudge Cells Not Reportable 07/11/21 04:04 Toxic Granulation Not Reportable 07/11/21 04:04 Toxic Vacuolation Not Reportable 07/11/21 04:04 Dohle Bodies Not Reportable 07/11/21 04:04 Pelger-Huet Anomaly Not Reportable 07/11/21 04:04 Dennis Rods Not Reportable 07/11/21 04:04 Platelet Estimate Consistent w auto 07/11/21 04:04 Clumped Platelets Not Reportable 07/11/21 04:04 Plt Clumps, EDTA Not Reportable 07/11/21 04:04 Large Platelets Not Reportable 07/11/21 04:04 Giant Platelets Not Reportable 07/11/21 04:04 Platelet Satelliting Not Reportable 07/11/21 04:04 Plt Morphology Comment Not Reportable 07/11/21 04:04 RBC Morphology Not Reportable 07/11/21 04:04 Dimorphic RBCs Not Reportable 07/11/21 04:04 Polychromasia Not Reportable 07/11/21 04:04 Hypochromasia 2+ 07/11/21 04:04 Poikilocytosis Not Reportable 07/11/21 04:04 Anisocytosis 2+ 07/11/21 04:04 Microcytosis Not Reportable 07/11/21 04:04 Macrocytosis Not Reportable 07/11/21 04:04 Spherocytes 1+ 07/11/21 04:04 Pappenheimer Bodies Not Reportable 07/11/21 04:04 Sickle Cells Not Reportable 07/11/21 04:04 Target Cells 2+ 07/11/21 04:04 Tear Drop Cells 1+ 07/11/21 04:04 Ovalocytes 1+ 07/11/21 04:04 Stomatocytes Few 06/12/21 01:45 Helmet Cells Not Reportable 07/11/21 04:04 [place] Bodies Not Reportable 07/11/21 04:04 [place] Rings Not Reportable 07/11/21 04:04 Nelsy Cells Not Reportable 07/11/21 04:04 Bite Cells Not Reportable 07/11/21 04:04 Crenated Cell Not Reportable 07/11/21 04:04 Elliptocytes Not Reportable 07/11/21 04:04 Acanthocytes (Spur) Not Reportable 07/11/21 04:04 Rouleaux Not Reportable 07/11/21 04:04 Hemoglobin C Crystals Not Reportable 07/11/21 04:04 Schistocytes Rare 07/11/21 04:04 Malaria parasites Not Reportable 07/11/21 04:04 Edin Bodies Not Reportable 07/11/21 04:04 Hem Pathologist Commnt No 07/11/21 04:04 PT 18.3 Sec. (12.2-14.9) H 06/20/21 04:33 INR 1.37 (0.87-1.13) H 06/20/21 04:33 APTT 26.4 Sec. (24.2-36.6) 06/13/21 Unknown Fibrinogen 546 mg/dl (211-480) H 06/13/21 Unknown D-Dimer 1244.63 ng/mlDDU (0-234) H 06/13/21 Unknown ABG pH 7.448 pH Units (7.350-7.450) 07/04/21 01:44 POC ABG pCO2 25.6 mmHg (32.0-48.0) L 06/13/21 04:31 ABG pCO2 39.5 mm Hg 07/04/21 01:44 POC ABG pO2 138.8 mmHg (83-108) H 06/13/21 04:31 ABG pO2 107.7 mm Hg (80.0-90.0) H 07/04/21 01:44 POC ABG HCO3 21.4 06/13/21 04:31 ABG HCO3 26.7 mmol/L (20.0-26.0) H 07/04/21 01:44 ABG O2 Saturation 98.0 % (95.0-99.0) 07/04/21 01:44 ABG O2 Content 10.3 (0.0-44) 07/04/21 01:44 POC ABG Base Excess -0.7 06/13/21 04:31 ABG Base Excess 2.5 mmol/L (-2.0-3.0) 07/04/21 01:44 ABG Hemoglobin 7.5 gm/dl (12.0-16.0) L 07/04/21 01:44 ABG Oxyhemoglobin 98.1 (94-98) H 06/13/21 04:31 ABG Carboxyhemoglobin 1.6 % (0.0-5.0) 07/04/21 01:44 ABG Methemoglobin 0.6 % (0.0-1.5) 07/04/21 01:44 Oxyhemoglobin 95.9 % (95.0-99.0) 07/04/21 01:44 Carboxyhemoglobin 0.8 (0.5-1.5) 06/13/21 04:31 FiO2 35 % 07/04/21 01:44 FiO2 % 40.0 06/13/21 04:31 Sodium 139 mmol/L (137-145) 07/11/21 04:04 Potassium 3.3 mmol/L (3.6-5.0) L 07/11/21 04:04 Chloride 99.7 mmol/L (98-107) 07/11/21 04:04 Carbon Dioxide 27 mmol/L (22-30) 07/11/21 04:04 Anion Gap 16 mmol/L 07/11/21 04:04 BUN 15 mg/dL (7-17) 07/11/21 04:04 Creatinine 0.7 mg/dL (0.6-1.2) 07/11/21 04:04 Estimated GFR > 60 ml/min 07/11/21 04:04 BUN/Creatinine Ratio 21 % 07/11/21 04:04 Glucose 199 mg/dL (65-100) H 07/11/21 04:04 POC Glucose 224 mg/dL (70-105) H 07/15/21 05:40 Hemoglobin A1c 6.0 % (4-6) 07/11/21 04:04 Lactic Acid 5.30 mmol/L (0.7-2.0) H* 06/13/21 15:45 Calcium 8.5 mg/dL (8.4-10.2) 07/11/21 04:04 Phosphorus 3.70 mg/dL (2.5-4.5) D 07/08/21 04:20 Magnesium 1.90 mg/dL (1.7-2.3) 07/08/21 04:20 Total Bilirubin 0.40 mg/dL (0.1-1.2) 06/15/21 03:56 AST 64 units/L (5-40) H 06/15/21 03:56 ALT 106 units/L (7-56) H 06/15/21 03:56 Alkaline Phosphatase 55 units/L (35-129) 06/15/21 03:56 Troponin T < 0.010 ng/mL (0.00-0.029) 06/11/21 23:21 C-Reactive Protein 3.30 mg/dL (0.00-1.30) H 06/16/21 04:32 Total Protein 5.1 g/dL (6.3-8.2) L 06/15/21 03:56 Albumin 2.9 g/dL (3.9-5) L 06/15/21 03:56 Albumin/Globulin Ratio 1.3 % 06/15/21 03:56 Triglycerides 254 mg/dL (2-149) H 06/21/21 04:42 Vitamin B12 647.0 pg/mL (211-911) 07/08/21 15:36 TSH 1.050 mlU/mL (0.270-4.200) 07/08/21 15:36 Urine Color Yellow (Yellow) 06/12/21 17:00 Urine Turbidity Clear (Clear) 06/12/21 17:00 Urine pH 5.0 (5.0-7.0) 06/12/21 17:00 Ur Specific [place] 1.035 (1.003-1.030) H 06/12/21 17:00 Urine Protein 30 mg/dl mg/dL (Negative) 06/12/21 17:00 Urine Glucose (UA) 50 mg/dL (Negative) 06/12/21 17:00 Urine Ketones Tr mg/dL (Negative) 06/12/21 17:00 Urine Blood Neg (Negative) 06/12/21 17:00 Urine Nitrite Neg (Negative) 06/12/21 17:00 Urine Bilirubin Neg (Negative) 06/12/21 17:00 Urine Urobilinogen < 2.0 mg/dL (<2.0) 06/12/21 17:00 Ur Leukocyte Esterase Neg (Negative) 06/12/21 17:00 Urine WBC (Auto) < 1.0 /HPF (0.0-6.0) 06/12/21 17:00 Urine RBC (Auto) < 1.0 /HPF (0.0-6.0) 06/12/21 17:00 Urine Creatinine 81.1 mg/dL (0.1-20.0) H 06/15/21 10:40 Urine Sodium 42 mmol/L 06/15/21 10:40 Coronavirus (PCR) Negative (Negative) 06/12/21 09:50 Blood Type O POSITIVE 06/24/21 06:40 Antibody Screen Negative 06/24/21 06:40 Crossmatch See Detail 06/24/21 06:40 Lujan/IV: Voiding Method Indwelling Catheter Active Medications - Current Medications Current Medications: Generic Name Dose Route Start Last Admin Trade Name Freq PRN Reason Stop Dose Admin Hydrocodone Bitart/Acetaminophen 1 each 07/04/21 10:00 07/15/21 01:29 Hydrocodone/Acetaminophen 5-325 Mg Tab PO 1 each Q6H PRN Administration Pain, Moderate (4-6) Amlodipine Besylate 5 mg 06/23/21 10:00 07/15/21 09:14 Amlodipine 5 Mg Tab PO 5 mg QDAY JOLENE Administration Lipase/Protease/Amylase 1 each 06/19/21 19:20 Lipase 10,500/Protease 25,000/Amylase 43,750 (Units) Dr Melgar FEEDTUBE PRN PRN For Clogged Feeding Tube Atorvastatin Calcium 20 mg 06/22/21 22:00 07/14/21 21:34 Atorvastatin 20 Mg Tab PO 20 mg QHS JOLENE Administration Baclofen 10 mg 07/07/21 11:39 07/09/21 02:15 Baclofen 10 Mg Tab PO 10 mg BID PRN Administration Muscle pain Enoxaparin Sodium 40 mg 06/30/21 22:00 07/14/21 21:34 Enoxaparin 40 Mg/0.4 Ml Inj SUB-Q 40 mg QDAY@2200 JOLENE Administration Protocol Famotidine 20 mg 06/24/21 22:00 07/15/21 09:13 Famotidine 20 Mg Tab FEEDTUBE 20 mg BID JOLENE Administration Gabapentin 100 mg 07/07/21 14:00 07/15/21 09:14 Gabapentin 100 Mg Cap PO 100 mg TID JOLENE Administration Hydralazine HCl 100 mg 06/22/21 19:00 07/15/21 06:24 Hydralazine 100 Mg Tab FEEDTUBE 100 mg Q8HR JOLENE Administration Hydromorphone HCl 0.5 mg 07/10/21 12:00 07/15/21 03:24 Hydromorphone 1 Mg/1 Ml Inj IV 0.5 mg Q4H PRN Administration Pain , Severe (7-10) Insulin Glargine 30 units 07/04/21 22:00 07/14/21 21:34 Insulin Glargine 100 Units/Ml SUB-Q 30 units QHS JOLENE Administration Insulin Human Lispro 0 unit 06/12/21 12:00 07/15/21 06:21 Insulin Lispro 100 Unit/Ml SUB-Q 4 unit Q6HR JOLENE Administration Protocol Labetalol HCl 10 mg 06/21/21 18:00 07/10/21 10:27 Labetalol 20 Mg/4 Ml Inj IV 10 mg Q4HR PRN Administration Hypertension Lidocaine HCl 15 ml 07/12/21 20:00 07/14/21 21:34 Magic Mouthwash 30ml PO 15 ml TID JOLENE Administration Melatonin 5 mg 07/05/21 22:00 07/14/21 21:34 Melatonin 5 Mg Tab PO 5 mg QHS [facility] Administration Senna 8.8 mg 07/13/21 22:00 07/14/21 21:35 Sennosides Oral Liqd 8.8 Mg/5 Ml Oral Liqd PO 8.8 mg QHS JOLENE Administration Simple Syrup 15 ml 06/19/21 19:20 Simple Syrup 15 Ml FEEDTUBE PRN PRN Hypoglycemia Simple Syrup 30 ml 06/19/21 19:20 Simple Syrup 15 Ml FEEDTUBE PRN PRN Hypoglycemia Sodium Bicarbonate 325 mg 06/19/21 19:20 Sodium Bicarbonate 325 Mg Tab FEEDTUBE PRN PRN For Clogged Feeding Tube Sodium Chloride 10 ml 06/11/21 22:00 07/15/21 09:14 Sodium Chloride 0.9% 10 Ml Flush Syringe IV 10 ml BID JOLENE Administration Trazodone HCl 100 mg 07/05/21 22:00 07/14/21 21:34 Trazodone 50 Mg Tab PO 100 mg QHS JOLENE Administration Nutrition/Malnutrition Assess - Dietary Evaluation Nutrition/Malnutrition Findings: Nutrition Notes Start: 06/16/21 12:10 Freq: Status: Active Protocol: Document 07/08/21 14:32 BRITNI (Rec: 07/08/21 14:43 [email or web address] [email or web address]) Nutrition Notes Initial or Follow up Reassessment Current Diagnosis Diabetes,Hypertension, Respiratory Failure Other Pertinent Diagnosis Jeremiah's Angina, s/p cardiac arrest Current Diet TF-Vital AF 1.2 Quan at 50 ml/ hr Labs/Tests BG 183 POC Glu range since last assessment: 121-246 Pertinent Medications Reviewed Height 5 ft 8 in Weight 108.6 kg Nathalie Body Weight (kg) 63.63 BMI 36.3 Weight change and time frame Wt change noted Weight Status Obese Subjective/Other Information TF off at time of visit (12:38 ). Pt scheduled for trach down-sizing today. Pt currently on T-piece at 28% and awaiting placement of [place] valve. (R) chest tube removed on 06/29. Per RN, pt had been tolerating TF at goal rate. Percent of energy/protein needs met: 95% energy 71% pro Burn Absent Trauma Absent #1 Nutrition Diagnosis Inadequate oral intake Diagnosis Progress(for reassessment Continues documentation) Is patient on ventilator? No Is Patient Ambulatory and/or Out of Bed No REE-([facility]-confined to bed) 196.292 Kcal/Kg value to use for calculation 14 Approximate Energy Requirements Using 1520 kcal/Kg Calculation Used for Recommendations Kcal/kg Additional Notes Pro needs 2g/kg IBW: 127g/day Fluid needs 1ml/kcal Nutrition Intervention Nutrition Support: Continue Vital AF 1.2 Quan at 50 ml/hr with 80ml water flush q4h. Kcal 1,440 Protein (gm) 90 Carbohydrates (gm) 133 Fat (gm) 65 Fluid (mL) 973 Fiber (gm) 6 Goal #1 TF tolerance Goal #2 TF to meet nutrient needs as best possible Follow-Up By: 07/15/21 Additional Comments F/U: stable TF, wt, resp status
[2021-07-15] MEDS: MAGIC MOUTHWASH 30ML PO SCH ×3 (13:15→20:29)
--- NOTE | 2021-07-15 14:29 | Progress Note ---
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 07/15/21: Hopeful transfer soon. 07/14/21: No new recs. 07/13/21: no new recs. 07/12/21: Stable pulm [facility] for transport. Awaiting [facility] arrival for speech to work with patient. Continue PT/OT. Needs placement. 07/11/21: clinically stable for transport when bed is available at facility. Follow up speech recs. Reviewed neurology note, they state MRI cancelled. Appears this was done by surgery so they can discuss with them about why. Will continue to follow. 07/10/21: Continue current care. Trach changed out. Speech following. Awaiting placement. 07/09/21: Transfer to IMCU. PT/OT. Speech to see again now with smaller caliber trach. Placement. 07/08/21: Continue ICU. Once trach downsized may consider transition to step down if ICU bed is needed. Hopeful placement soon. PT/OT. 07/05/21: Continue ICU/IMCU status. Patient is stable for speech as well as PT/OT. Please reconsult them. [facility] has been denied for LTACH so will attempt to get patient into nursing home facility. Will speak with surgery about possibly downsizing trach to 8. Speech has no equipment to fit 10. Do not feel comfortable doing it myself or asking RT to change out to smaller trach. 07/04/21: Will keep in ICU/IMCU for now. Treat pain in back with Grady and discontinue Tylenol. Follow up with CM on placement. 07/03/21: Continue current level of care. CM working on placement. 07/02/21: ABG now. Patient did have low grade temp earlier today and still has a white count despite being off steroids. It is trending down. Reviewed ID note and they did mention of persistent consider ct of neck. May need to do this. If done, please scan head as well. Will continue to follow. Spoke with RT about obtaining ABG. 07/01/21: Continue T-piece. Follow up speech recs. Follow up electrolytes. PT/OT. Stable for transfer when bed available 06/30/21: Aggressive replacement of electrolytes. Will repeat chemistry tonight around 8. please call for orders as we would like to keep her K at 4 and Mag at 2. Chemistry in the am. Stable for transfer to telemetry floor. 06/29/21: Speech did see but patient had decreased voice quality and increased wob so aborted. Will ask them to assess again on Thursday. Chest tube out and o rdered follow up CXR. Stable for transfer but ok with continuing monitoring in ICU. If bed needed could go to step down. 06/28/21: monitor drainage in ICU for 24 more hours. Can likely come out to [facility]. Continue in ICU for now. Once chest tube out, no objection to transfer. 06/27/21: Will place chest tube to water seal. Instructed staff if any change in respiratory status, place back on suction and obtain CXR. Otherwise will leave off. Continue T-piece as tolerated. Rehab/retirement/LTACH appropriate. STable for transfer if and when bed becomes available. 06/26/21: T-piece today. If off the vent, agree with surgery and removal of chest tube as subq emphysema is improving as well. PT has seen suggested LTACH, however if we are able to wean she may need retirement/rehab. Prognosis continues to improve. 06/25/21: Continue PSV as tolerated. Hopeful T-piece in the next 24-48 hours. Will drop steroids down further on . Can switch to daily and even change to oral. PT/OT consult, and follow up recs. May need LTACH vs rehab vs both. Continue to follow. 06/24/21: Daily PSV trials. Maybe ready for T-piece sson. Continue to wean steroids to off. IMS changed to 40q12 which is fine. Continue chest tube until off vent. Still on list for [facility] but will discuss with CM about checking into LTACH as patient will need rehab. PT/OT consult. 06/21/21: Continue current level of sedation. Chest tube does not have air leak but there is clear evidence of a PTX on right. Stripped tube at bedside and will repeat CXR in the morning. Hold on weaning sedation for now and hold on PSV trials. May need second chest tube vs vats if PTX worsens or does not resolve. Patient still on list for [facility], hopeful they will have a bed soon. Drop steroids to 40q8 starting Thursday. Monitor renal function, likely will improve. Needs more free water. Prognosis still remains guarded. 06/20/21: Restart some sedation. At least pain and maybe diprovan. Would like to wake patient up at some point and attempt some PSV trials. Labs are off this am. Large bump in white count but no fever, also no diff drawn. Could be error vs steroid related but this is in just 24 hours. Will repeat tomorrow. If spikes a temp neves culture as well. Small bump in Cr but still in normal range. Will watch. Now that peg in place, tube feeds and free water flushes. Still on list for [facility]. Patient has been steroids greater than 7 days so will have to wean. Can drop to 60q8 starting tomorrow. Prognosis still remains guarded. 06/19/21: surgery to attempt trach and peg today. Still will ask to keep on transfer list for [facility] as her other issues still need to be addressed. If able to place peg, can stop clinimix, give free water and start tube feeds. Prognosis remains guarded. pH better with drop in tidal volume. 06/18/21: [facility] has agreed to accept but no ICU beds available at this time. Spoke with Dr. Vasquez yesterday and Dr. Patricia spoke with ENT there. Spoke with RT this am and patient did have a leak when cuff let down and her tidal volumes dropped to below 100. Patient remains on abx and steriods. Will consider lightening sedation tomorrow and seeing how patient does if cuff leak persists. Dropped tidal volumes to 450. Continue PPN for now. 06/17/21: spoke with surgery and they feel transfer is reasonable. I have reached out to [facility] and IMS has spoken with someone from [facility]. Await to hear back from them. Continue supportive measures and adequate sedation for pain control. No PSV trials as of yet. Blood sugar control, increase lantus. Most likely secondary to steroids. Continue abx therapy. Guarded prognosis. 06/16/21: Renal function improved with fluids. IMS to give more fluids (LR) today which I agree with. FeNa is =0.7. Should be fluid responsive. Continue clinimix. Needs long acting insulin. Agree with lantus. Asked nursing to increase sedation now that we know that patient's mental status is stable. Picc today. Air leak test vs Neck CT on tomorrow. 06/15/21: Hopeful with worsening renal function ( likely from code on yesterday) that sedatives are just lingering from that. Still making good urine but output has fallen off. Will send urine sodium and urine cr to check Fena. Most likely this is prerenal. ordered renal ultrasound as well. Continue abx and steroids. Will start clinimix today. This should help with the free water piece. Will give another liter bolus of LR right now. Keep sedation off for now. Guarded prognosis. 06/14/21: Will discuss with surgery future plans. They have ordered steroids to help with inflammation and abx continue. All others appears stable and no acute evidence of bleeding at this time. Follow up surgery recs if any new ones. Guarded prognosis. 06/13/21: Patient to back to OR today. BLood transfusion. Will send DIC panel and may need to given cryo if over 6 units of PRBC's given. Patient will likely need trach and peg as we need to address nutrition. Chest tube placed, large bore now. Patient now with right sided effusion. Hemothorax???. Will continue to monitor output. Needs picc line as femoral should come out soon. Continue pressors. Continue sedation for pain control and comfort. Guarded prognosis. Surgery comfortable with neck and current situation so they have not request transfer. 1. Placed right femoral central line. pressors can run through this. 2. Repeat chemistry stat given bicarb of 8 and blood sugar of greater than 600. Ordering FSBS now. Earlier bicarb was 25. If accurate will need bicarb drip and vasopressin but not sure as pH on blood gas was normal done around the same time. 3. Coagulopathy is improving. INR down to 4.55 and PTT and pT improving. Will continue to give FFP. Ordered more vitamin K. H/H is stable but patient is oozing from neck and mouth. 4. Vasopressor for blood pressure. Need to keep map 65 and greater 5. Lujan is needed for accurate I/O 6. Surgery called by IMS about current CT situation. They state they will reassess in the am. I have reviewed the images myself. If I can position the patient safely without compromising the airway after adequate sedation, may consider placing chest tube now as INR is better and FFP is hanging. Patient is morbidly obese so shits could move the ET tube so if not safe, will wait until surgery comes in the morning. 7. Would not attempt to pass OG or NG tube given current situation in neck 8. Will discuss with surgery tomorrow but I feel this patient should be transferred to a tertiary care facility with ENT as we do not have that service here. CCT 31 minutes. Subjective Date of service: 07/15/21 Interval history: PMV still not here. Clinically patient is stable, unchanged. Pulm status is stable. Objective Vital Signs - 12hr 07/15/21 07/15/21 07/15/21 02:49 03:00 03:47 Temperature 100.4 F H Pulse Rate 95 H Pulse Rate [ From Monitor] Respiratory 19 Rate Blood Pressure 137/66 O2 Sat by Pulse 100 96 Oximetry O2 Sat by Pulse 100 Oximetry [ Assessment] 07/15/21 07/15/21 07/15/21 04:00 05:00 06:00 Temperature Pulse Rate 93 H 101 H 94 H Pulse Rate [ 93 H From Monitor] Respiratory 26 H 22 20 Rate Blood Pressure 137/66 142/71 131/65 O2 Sat by Pulse 96 98 96 Oximetry O2 Sat by Pulse Oximetry [ Assessment] 07/15/21 07/15/21 07/15/21 07:00 07:28 08:00 Temperature 98.0 F Pulse Rate 89 88 Pulse Rate [ 92 H From Monitor] Respiratory 17 22 Rate Blood Pressure 127/64 124/78 O2 Sat by Pulse 95 97 Oximetry O2 Sat by Pulse Oximetry [ Assessment] 07/15/21 07/15/21 07/15/21 09:00 09:14 09:30 Temperature Pulse Rate 121 H 94 H Pulse Rate [ From Monitor] Respiratory 21 Rate Blood Pressure 114/72 114/72 O2 Sat by Pulse 96 99 Oximetry O2 Sat by Pulse Oximetry [ Assessment] 07/15/21 07/15/21 07/15/21 10:00 11:00 12:00 Temperature Pulse Rate 95 H 94 H 103 H Pulse Rate [ 96 H From Monitor] Respiratory 28 H 23 25 H Rate Blood Pressure 135/69 130/60 130/60 O2 Sat by Pulse 97 97 98 Oximetry O2 Sat by Pulse Oximetry [ Assessment] 07/15/21 13:00 Temperature Pulse Rate 99 H Pulse Rate [ From Monitor] Respiratory 19 Rate Blood Pressure 141/73 O2 Sat by Pulse 98 Oximetry O2 Sat by Pulse Oximetry [ Assessment] Constitutional: alert, other (on vent trach in place) Eyes: non-icteric ENT: oropharynx moist Neck: other (trach in place) Ascultation: Bilateral: clear Percussion: Bilateral: not dull Cardiovascular: regular rate and rhythm Gastrointestinal: normoactive bowel sounds Integumentary: normal Extremities: no edema, other (subq emphysema) Neurologic: normal mental status CBC and BMP: 07/11/21 04:04 07/11/21 04:04 ABG, PT/INR, D-dimer: ABG ABG pH 7.448 pH Units (7.350-7.450) 07/04/21 01:44 POC ABG pCO2 25.6 mmHg (32.0-48.0) L 06/13/21 04:31 ABG pCO2 39.5 mm Hg 07/04/21 01:44 POC ABG pO2 138.8 mmHg (83-108) H 06/13/21 04:31 ABG pO2 107.7 mm Hg (80.0-90.0) H 07/04/21 01:44 POC ABG HCO3 21.4 06/13/21 04:31 ABG O2 Saturation 98.0 % (95.0-99.0) 07/04/21 01:44 PT/INR, D-dimer PT 18.3 Sec. (12.2-14.9) H 06/20/21 04:33 INR 1.37 (0.87-1.13) H 06/20/21 04:33 D-Dimer 1244.63 ng/mlDDU (0-234) H 06/13/21 Unknown Abnormal lab findings: Abnormal Labs 06/11/21 06/11/21 06/11/21 15:23 15:23 19:20 WBC 12.0 H RBC Hgb Hct MCV 72 L MCH 21 L RDW 17.5 H Plt Count Lymph % (Auto) 12.9 L [place] % (Auto) 8.6 H Lymph # (Auto) [place] # (Auto) 1.0 H Seg Neutrophils % 77.4 H Seg Neuts % (Manual) Lymphocytes % (Manual) Monocytes % (Manual) Basophils % (Manual) Seg Neutrophils # 9.3 H Seg Neutrophils # Man Lymphocytes # (Manual) Monocytes # (Manual) PT INR APTT Fibrinogen D-Dimer ABG pH POC ABG pCO2 POC ABG pO2 ABG pO2 ABG HCO3 ABG O2 Saturation ABG Base Excess ABG Hemoglobin ABG Oxyhemoglobin Oxyhemoglobin Sodium Potassium Chloride Carbon Dioxide BUN Creatinine Glucose 144 H POC Glucose Lactic Acid Calcium Phosphorus Magnesium AST ALT Alkaline Phosphatase C-Reactive Protein Total Protein Albumin Triglycerides Ur Specific [place] Urine Creatinine Crossmatch See Detail 06/11/21 06/11/21 06/11/21 19:29 19:29 23:21 WBC 15.8 H RBC Hgb 9.4 L Hct MCV 72 L MCH 22 L RDW 17.4 H Plt Count Lymph % (Auto) 9.2 L [place] % (Auto) Lymph # (Auto) [place] # (Auto) Seg Neutrophils % 89.0 H Seg Neuts % (Manual) Lymphocytes % (Manual) Monocytes % (Manual) Basophils % (Manual) Seg Neutrophils # 14.0 H Seg Neutrophils # Man Lymphocytes # (Manual) Monocytes # (Manual) PT 72.9 H INR 8.18 H* APTT 71.7 H* Fibrinogen D-Dimer ABG pH POC ABG pCO2 POC ABG pO2 ABG pO2 ABG HCO3 ABG O2 Saturation ABG Base Excess ABG Hemoglobin ABG Oxyhemoglobin Oxyhemoglobin Sodium 149 H D Potassium Chloride 124.3 H Carbon Dioxide 8 L* D BUN Creatinine 0.3 L Glucose 628 H* POC Glucose Lactic Acid Calcium 2.4 L* D Phosphorus Magnesium AST ALT < 5 L Alkaline Phosphatase 19 L C-Reactive Protein Total Protein 1.6 L D Albumin 0.8 L Triglycerides Ur Specific [place] Urine Creatinine Crossmatch 06/11/21 06/11/21 06/11/21 23:21 23:22 23:42 WBC RBC Hgb Hct MCV MCH 27 L RDW 22.2 H Plt Count 131 L Lymph % (Auto) [place] % (Auto) Lymph # (Auto) [place] # (Auto) Seg Neutrophils % Seg Neuts % (Manual) Lymphocytes % (Manual) Monocytes % (Manual) Basophils % (Manual) Seg Neutrophils # Seg Neutrophils # Man Lymphocytes # (Manual) Monocytes # (Manual) PT 46.3 H INR 4.55 H APTT 54.8 H Fibrinogen D-Dimer ABG pH POC ABG pCO2 POC ABG pO2 325.9 H ABG pO2 ABG HCO3 ABG O2 Saturation ABG Base Excess ABG Hemoglobin 8.0 L ABG Oxyhemoglobin 99.0 H Oxyhemoglobin Sodium Potassium Chloride Carbon Dioxide BUN Creatinine Glucose POC Glucose Lactic Acid Calcium Phosphorus Magnesium AST ALT Alkaline Phosphatase C-Reactive Protein Total Protein Albumin Triglycerides Ur Specific [place] Urine Creatinine Crossmatch 06/12/21 06/12/21 06/12/21 01:45 01:45 01:45 WBC 21.6 H RBC 3.04 L Hgb 6.7 L D Hct 22.4 L D MCV 74 L MCH 22 L RDW 18.9 H Plt Count Lymph % (Auto) [place] % (Auto) Lymph # (Auto) [place] # (Auto) Seg Neutrophils % Seg Neuts % (Manual) 76.0 H Lymphocytes % (Manual) 2.0 L Monocytes % (Manual) 8.0 H Basophils % (Manual) Seg Neutrophils # Seg Neutrophils # Man 16.4 H Lymphocytes # (Manual) 0.4 L Monocytes # (Manual) 1.7 H PT 25.4 H INR 2.10 H APTT Fibrinogen D-Dimer ABG pH POC ABG pCO2 POC ABG pO2 ABG pO2 ABG HCO3 ABG O2 Saturation ABG Base Excess ABG Hemoglobin ABG Oxyhemoglobin Oxyhemoglobin Sodium Potassium 5.6 H D Chloride Carbon Dioxide 20 L D BUN Creatinine Glucose 368 H POC Glucose Lactic Acid Calcium 7.1 L D Phosphorus Magnesium AST ALT Alkaline Phosphatase C-Reactive Protein Total Protein 5.3 L D Albumin 3.1 L Triglycerides Ur Specific [place] Urine Creatinine Crossmatch 06/12/21 06/12/21 06/12/21 02:05 04:41 11:05 WBC 14.6 H RBC 3.52 L Hgb 8.5 L Hct 27.7 L MCV MCH 24 L RDW 20.9 H Plt Count Lymph % (Auto) [place] % (Auto) Lymph # (Auto) [place] # (Auto) Seg Neutrophils % Seg Neuts % (Manual) Lymphocytes % (Manual) Monocytes % (Manual) Basophils % (Manual) Seg Neutrophils # Seg Neutrophils # Man Lymphocytes # (Manual) Monocytes # (Manual) PT INR APTT Fibrinogen D-Dimer ABG pH POC ABG pCO2 POC ABG pO2 224.6 H ABG pO2 ABG HCO3 ABG O2 Saturation ABG Base Excess ABG Hemoglobin 7.3 L ABG Oxyhemoglobin 98.7 H Oxyhemoglobin Sodium Potassium Chloride Carbon Dioxide BUN Creatinine Glucose POC Glucose 308 H Lactic Acid Calcium Phosphorus Magnesium AST ALT Alkaline Phosphatase C-Reactive Protein Total Protein Albumin Triglycerides Ur Specific [place] Urine Creatinine Crossmatch 06/12/21 06/12/21 06/12/21 11:05 11:05 12:18 WBC RBC Hgb Hct MCV MCH RDW Plt Count Lymph % (Auto) [place] % (Auto) Lymph # (Auto) [place] # (Auto) Seg Neutrophils % Seg Neuts % (Manual) Lymphocytes % (Manual) Monocytes % (Manual) Basophils % (Manual) Seg Neutrophils # Seg Neutrophils # Man Lymphocytes # (Manual) Monocytes # (Manual) PT 16.8 H INR 1.23 H APTT Fibrinogen D-Dimer ABG pH POC ABG pCO2 POC ABG pO2 ABG pO2 ABG HCO3 ABG O2 Saturation ABG Base Excess ABG Hemoglobin ABG Oxyhemoglobin Oxyhemoglobin Sodium Potassium Chloride Carbon Dioxide BUN 24 H Creatinine Glucose 324 H POC Glucose 281 H Lactic Acid Calcium 7.5 L Phosphorus Magnesium AST 70 H ALT 57 H Alkaline Phosphatase C-Reactive Protein Total Protein 6.0 L Albumin 3.6 L Triglycerides Ur Specific [place] Urine Creatinine Crossmatch 06/12/21 06/12/21 06/12/21 17:00 17:00 17:00 WBC RBC Hgb 7.5 L Hct 24.0 L MCV MCH RDW Plt Count Lymph % (Auto) [place] % (Auto) Lymph # (Auto) [place] # (Auto) Seg Neutrophils % Seg Neuts % (Manual) Lymphocytes % (Manual) Monocytes % (Manual) Basophils % (Manual) Seg Neutrophils # Seg Neutrophils # Man Lymphocytes # (Manual) Monocytes # (Manual) PT 16.0 H INR 1.16 H APTT Fibrinogen D-Dimer ABG pH POC ABG pCO2 POC ABG pO2 ABG pO2 ABG HCO3 ABG O2 Saturation ABG Base Excess ABG Hemoglobin ABG Oxyhemoglobin Oxyhemoglobin Sodium Potassium Chloride Carbon Dioxide BUN Creatinine Glucose POC Glucose Lactic Acid Calcium Phosphorus Magnesium AST ALT Alkaline Phosphatase C-Reactive Protein Total Protein Albumin Triglycerides Ur Specific [place] 1.035 H Urine Creatinine Crossmatch 06/12/21 06/12/21 06/12/21 18:06 23:00 23:05 WBC RBC Hgb 7.6 L Hct 23.5 L MCV MCH RDW Plt Count Lymph % (Auto) [place] % (Auto) Lymph # (Auto) [place] # (Auto) Seg Neutrophils % Seg Neuts % (Manual) Lymphocytes % (Manual) Monocytes % (Manual) Basophils % (Manual) Seg Neutrophils # Seg Neutrophils # Man Lymphocytes # (Manual) Monocytes # (Manual) PT INR APTT Fibrinogen D-Dimer ABG pH POC ABG pCO2 POC ABG pO2 ABG pO2 ABG HCO3 ABG O2 Saturation ABG Base Excess ABG Hemoglobin ABG Oxyhemoglobin Oxyhemoglobin Sodium Potassium Chloride Carbon Dioxide BUN Creatinine Glucose POC Glucose 257 H 300 H Lactic Acid Calcium Phosphorus Magnesium AST ALT Alkaline Phosphatase C-Reactive Protein Total Protein Albumin Triglycerides Ur Specific [place] Urine Creatinine Crossmatch 06/13/21 06/13/21 06/13/21 04:31 05:19 07:30 WBC RBC Hgb 6.8 L Hct 21.7 L MCV MCH RDW Plt Count Lymph % (Auto) [place] % (Auto) Lymph # (Auto) [place] # (Auto) Seg Neutrophils % Seg Neuts % (Manual) Lymphocytes % (Manual) Monocytes % (Manual) Basophils % (Manual) Seg Neutrophils # Seg Neutrophils # Man Lymphocytes # (Manual) Monocytes # (Manual) PT INR APTT Fibrinogen D-Dimer ABG pH 7.541 H POC ABG pCO2 25.6 L POC ABG pO2 138.8 H ABG pO2 ABG HCO3 ABG O2 Saturation ABG Base Excess ABG Hemoglobin 7.3 L ABG Oxyhemoglobin 98.1 H Oxyhemoglobin Sodium Potassium Chloride Carbon Dioxide BUN Creatinine Glucose POC Glucose 286 H Lactic Acid Calcium Phosphorus Magnesium AST ALT Alkaline Phosphatase C-Reactive Protein Total Protein Albumin Triglycerides Ur Specific [place] Urine Creatinine Crossmatch 06/13/21 06/13/21 06/13/21 07:30 12:04 14:50 WBC RBC Hgb Hct MCV MCH RDW Plt Count Lymph % (Auto) [place] % (Auto) Lymph # (Auto) [place] # (Auto) Seg Neutrophils % Seg Neuts % (Manual) Lymphocytes % (Manual) Monocytes % (Manual) Basophils % (Manual) Seg Neutrophils # Seg Neutrophils # Man Lymphocytes # (Manual) Monocytes # (Manual) PT INR APTT Fibrinogen D-Dimer ABG pH 7.039 L* 7.182 L* POC ABG pCO2 POC ABG pO2 ABG pO2 63.1 L ABG HCO3 17.4 L ABG O2 Saturation 73.4 L ABG Base Excess -12.6 L -7.1 L ABG Hemoglobin 7.7 L 6.9 L ABG Oxyhemoglobin Oxyhemoglobin 71.8 L 93.5 L Sodium Potassium Chloride 108.9 H Carbon Dioxide BUN 28 H Creatinine Glucose 293 H POC Glucose Lactic Acid Calcium 7.2 L Phosphorus Magnesium AST 106 H ALT 92 H Alkaline Phosphatase C-Reactive Protein Total Protein 5.6 L Albumin 3.3 L Triglycerides Ur Specific [place] Urine Creatinine Crossmatch 06/13/21 06/13/21 06/13/21 14:54 15:45 17:34 WBC RBC Hgb Hct MCV MCH RDW Plt Count Lymph % (Auto) [place] % (Auto) Lymph # (Auto) [place] # (Auto) Seg Neutrophils % Seg Neuts % (Manual) Lymphocytes % (Manual) Monocytes % (Manual) Basophils % (Manual) Seg Neutrophils # Seg Neutrophils # Man Lymphocytes # (Manual) Monocytes # (Manual) PT INR APTT Fibrinogen D-Dimer ABG pH POC ABG pCO2 POC ABG pO2 ABG pO2 178.4 H ABG HCO3 ABG O2 Saturation 99.1 H ABG Base Excess ABG Hemoglobin 8.0 L ABG Oxyhemoglobin Oxyhemoglobin Sodium Potassium Chloride 107.3 H Carbon Dioxide 19 L BUN 33 H Creatinine 1.5 H Glucose 379 H POC Glucose Lactic Acid 5.30 H* Calcium 6.8 L Phosphorus Magnesium AST ALT Alkaline Phosphatase C-Reactive Protein Total Protein Albumin Triglycerides Ur Specific [place] Urine Creatinine Crossmatch 06/13/21 06/13/21 06/13/21 17:40 23:29 Unknown WBC 22.5 H RBC 3.16 L Hgb 8.0 L Hct 26.0 L MCV MCH 26 L RDW 21.4 H Plt Count Lymph % (Auto) [place] % (Auto) Lymph # (Auto) [place] # (Auto) Seg Neutrophils % Seg Neuts % (Manual) 88.0 H Lymphocytes % (Manual) 4.0 L Monocytes % (Manual) Basophils % (Manual) Seg Neutrophils # Seg Neutrophils # Man 19.8 H Lymphocytes # (Manual) 0.9 L Monocytes # (Manual) 1.4 H PT INR APTT Fibrinogen D-Dimer ABG pH POC ABG pCO2 POC ABG pO2 ABG pO2 ABG HCO3 ABG O2 Saturation ABG Base Excess ABG Hemoglobin ABG Oxyhemoglobin Oxyhemoglobin Sodium Potassium Chloride Carbon Dioxide BUN Creatinine Glucose POC Glucose 294 H 288 H Lactic Acid Calcium Phosphorus Magnesium AST ALT Alkaline Phosphatase C-Reactive Protein Total Protein Albumin Triglycerides Ur Specific [place] Urine Creatinine Crossmatch 06/13/21 06/14/21 06/14/21 Unknown 05:39 06:15 WBC RBC 2.93 L Hgb 7.2 L Hct 23.2 L MCV MCH 25 L RDW 21.2 H Plt Count Lymph % (Auto) [place] % (Auto) Lymph # (Auto) [place] # (Auto) Seg Neutrophils % Seg Neuts % (Manual) Lymphocytes % (Manual) Monocytes % (Manual) Basophils % (Manual) Seg Neutrophils # Seg Neutrophils # Man Lymphocytes # (Manual) Monocytes # (Manual) PT 17.6 H INR 1.31 H APTT Fibrinogen 546 H D-Dimer 1244.63 H ABG pH POC ABG pCO2 POC ABG pO2 ABG pO2 ABG HCO3 ABG O2 Saturation ABG Base Excess ABG Hemoglobin ABG Oxyhemoglobin Oxyhemoglobin Sodium Potassium Chloride Carbon Dioxide BUN Creatinine Glucose POC Glucose 246 H Lactic Acid Calcium Phosphorus Magnesium AST ALT Alkaline Phosphatase C-Reactive Protein Total Protein Albumin Triglycerides Ur Specific [place] Urine Creatinine Crossmatch 06/14/21 06/14/21 06/14/21 06:15 06:15 09:13 WBC RBC Hgb Hct MCV MCH RDW Plt Count Lymph % (Auto) [place] % (Auto) Lymph # (Auto) [place] # (Auto) Seg Neutrophils % Seg Neuts % (Manual) Lymphocytes % (Manual) Monocytes % (Manual) Basophils % (Manual) Seg Neutrophils # Seg Neutrophils # Man Lymphocytes # (Manual) Monocytes # (Manual) PT INR APTT Fibrinogen D-Dimer ABG pH POC ABG pCO2 POC ABG pO2 ABG pO2 183.0 H ABG HCO3 ABG O2 Saturation 99.2 H ABG Base Excess ABG Hemoglobin 6.6 L ABG Oxyhemoglobin Oxyhemoglobin Sodium 147 H Potassium Chloride 112.5 H Carbon Dioxide 21 L BUN 36 H Creatinine 1.4 H Glucose 281 H POC Glucose Lactic Acid Calcium 6.9 L Phosphorus Magnesium AST ALT Alkaline Phosphatase C-Reactive Protein Total Protein Albumin Triglycerides 189 H Ur Specific [place] Urine Creatinine Crossmatch 06/14/21 06/14/21 06/14/21 10:45 12:16 13:30 WBC RBC Hgb 7.1 L Hct 22.3 L MCV MCH RDW Plt Count Lymph % (Auto) [place] % (Auto) Lymph # (Auto) [place] # (Auto) Seg Neutrophils % Seg Neuts % (Manual) Lymphocytes % (Manual) Monocytes % (Manual) Basophils % (Manual) Seg Neutrophils # Seg Neutrophils # Man Lymphocytes # (Manual) Monocytes # (Manual) PT INR APTT Fibrinogen D-Dimer ABG pH 7.205 L POC ABG pCO2 POC ABG pO2 ABG pO2 261.3 H ABG HCO3 ABG O2 Saturation 99.4 H ABG Base Excess -7.2 L ABG Hemoglobin 7.6 L ABG Oxyhemoglobin Oxyhemoglobin Sodium Potassium Chloride Carbon Dioxide BUN Creatinine Glucose POC Glucose 174 H Lactic Acid Calcium Phosphorus Magnesium AST ALT Alkaline Phosphatase C-Reactive Protein Total Protein Albumin Triglycerides Ur Specific [place] Urine Creatinine Crossmatch 06/14/21 06/14/21 06/15/21 17:40 18:43 00:06 WBC RBC Hgb Hct MCV MCH RDW Plt Count Lymph % (Auto) [place] % (Auto) Lymph # (Auto) [place] # (Auto) Seg Neutrophils % Seg Neuts % (Manual) Lymphocytes % (Manual) Monocytes % (Manual) Basophils % (Manual) Seg Neutrophils # Seg Neutrophils # Man Lymphocytes # (Manual) Monocytes # (Manual) PT INR APTT Fibrinogen D-Dimer ABG pH 7.292 L POC ABG pCO2 POC ABG pO2 ABG pO2 78.8 L ABG HCO3 ABG O2 Saturation ABG Base Excess -5.0 L ABG Hemoglobin 9.1 L ABG Oxyhemoglobin Oxyhemoglobin 93.7 L Sodium Potassium Chloride Carbon Dioxide BUN Creatinine Glucose POC Glucose 182 H 144 H Lactic Acid Calcium Phosphorus Magnesium AST ALT Alkaline Phosphatase C-Reactive Protein Total Protein Albumin Triglycerides Ur Specific [place] Urine Creatinine Crossmatch 06/15/21 06/15/21 06/15/21 03:55 03:56 10:40 WBC RBC Hgb 8.4 L Hct 25.8 L MCV MCH RDW Plt Count Lymph % (Auto) [place] % (Auto) Lymph # (Auto) [place] # (Auto) Seg Neutrophils % Seg Neuts % (Manual) Lymphocytes % (Manual) Monocytes % (Manual) Basophils % (Manual) Seg Neutrophils # Seg Neutrophils # Man Lymphocytes # (Manual) Monocytes # (Manual) PT INR APTT Fibrinogen D-Dimer ABG pH POC ABG pCO2 POC ABG pO2 ABG pO2 ABG HCO3 ABG O2 Saturation ABG Base Excess ABG Hemoglobin ABG Oxyhemoglobin Oxyhemoglobin Sodium 147 H Potassium Chloride 112.2 H Carbon Dioxide 21 L BUN 47 H Creatinine 1.9 H Glucose 272 H POC Glucose Lactic Acid Calcium 7.3 L Phosphorus Magnesium AST 64 H ALT 106 H Alkaline Phosphatase C-Reactive Protein Total Protein 5.1 L Albumin 2.9 L Triglycerides Ur Specific [place] Urine Creatinine 81.1 H Crossmatch 06/15/21 06/15/21 06/15/21 11:46 17:16 23:17 WBC RBC Hgb Hct MCV MCH RDW Plt Count Lymph % (Auto) [place] % (Auto) Lymph # (Auto) [place] # (Auto) Seg Neutrophils % Seg Neuts % (Manual) Lymphocytes % (Manual) Monocytes % (Manual) Basophils % (Manual) Seg Neutrophils # Seg Neutrophils # Man Lymphocytes # (Manual) Monocytes # (Manual) PT INR APTT Fibrinogen D-Dimer ABG pH POC ABG pCO2 POC ABG pO2 ABG pO2 ABG HCO3 ABG O2 Saturation ABG Base Excess ABG Hemoglobin ABG Oxyhemoglobin Oxyhemoglobin Sodium Potassium Chloride Carbon Dioxide BUN Creatinine Glucose POC Glucose 271 H 268 H 264 H Lactic Acid Calcium Phosphorus Magnesium AST ALT Alkaline Phosphatase C-Reactive Protein Total Protein Albumin Triglycerides Ur Specific [place] Urine Creatinine Crossmatch 06/15/21 06/15/21 06/16/21 Unknown Unknown 04:32 WBC RBC 3.21 L 3.16 L Hgb 8.4 L 8.2 L Hct 26.1 L 25.4 L MCV MCH 26 L 26 L RDW 21.3 H 21.2 H Plt Count 105 L 118 L Lymph % (Auto) [place] % (Auto) Lymph # (Auto) [place] # (Auto) Seg Neutrophils % Seg Neuts % (Manual) Lymphocytes % (Manual) Monocytes % (Manual) Basophils % (Manual) Seg Neutrophils # Seg Neutrophils # Man Lymphocytes # (Manual) Monocytes # (Manual) PT INR APTT Fibrinogen D-Dimer ABG pH 7.465 H POC ABG pCO2 POC ABG pO2 ABG pO2 114.1 H ABG HCO3 ABG O2 Saturation ABG Base Excess ABG Hemoglobin 8.4 L ABG Oxyhemoglobin Oxyhemoglobin Sodium Potassium Chloride Carbon Dioxide BUN Creatinine Glucose POC Glucose Lactic Acid Calcium Phosphorus Magnesium AST ALT Alkaline Phosphatase C-Reactive Protein Total Protein Albumin Triglycerides Ur Specific [place] Urine Creatinine Crossmatch 06/16/21 06/16/21 06/16/21 04:32 04:32 05:08 WBC RBC Hgb Hct MCV MCH RDW Plt Count Lymph % (Auto) [place] % (Auto) Lymph # (Auto) [place] # (Auto) Seg Neutrophils % Seg Neuts % (Manual) Lymphocytes % (Manual) Monocytes % (Manual) Basophils % (Manual) Seg Neutrophils # Seg Neutrophils # Man Lymphocytes # (Manual) Monocytes # (Manual) PT INR APTT Fibrinogen D-Dimer ABG pH POC ABG pCO2 POC ABG pO2 ABG pO2 ABG HCO3 ABG O2 Saturation ABG Base Excess ABG Hemoglobin ABG Oxyhemoglobin Oxyhemoglobin Sodium 148 H Potassium 3.3 L Chloride 115.1 H Carbon Dioxide 21 L BUN 54 H Creatinine 1.6 H Glucose 367 H POC Glucose 356 H Lactic Acid Calcium 7.4 L Phosphorus Magnesium AST ALT Alkaline Phosphatase C-Reactive Protein 3.30 H Total Protein Albumin Triglycerides Ur Specific [place] Urine Creatinine Crossmatch 06/16/21 06/16/21 06/16/21 05:30 11:46 17:03 WBC RBC Hgb Hct MCV MCH RDW Plt Count Lymph % (Auto) [place] % (Auto) Lymph # (Auto) [place] # (Auto) Seg Neutrophils % Seg Neuts % (Manual) Lymphocytes % (Manual) Monocytes % (Manual) Basophils % (Manual) Seg Neutrophils # Seg Neutrophils # Man Lymphocytes # (Manual) Monocytes # (Manual) PT INR APTT Fibrinogen D-Dimer ABG pH 7.475 H POC ABG pCO2 POC ABG pO2 ABG pO2 171.8 H ABG HCO3 ABG O2 Saturation 99.1 H ABG Base Excess ABG Hemoglobin 11.7 L ABG Oxyhemoglobin Oxyhemoglobin Sodium Potassium Chloride Carbon Dioxide BUN Creatinine Glucose POC Glucose 309 H 345 H Lactic Acid Calcium Phosphorus Magnesium AST ALT Alkaline Phosphatase C-Reactive Protein Total Protein Albumin Triglycerides Ur Specific [place] Urine Creatinine Crossmatch 06/16/21 06/16/21 06/17/21 20:18 23:22 04:50 WBC RBC Hgb Hct MCV MCH RDW Plt Count Lymph % (Auto) [place] % (Auto) Lymph # (Auto) [place] # (Auto) Seg Neutrophils % Seg Neuts % (Manual) Lymphocytes % (Manual) Monocytes % (Manual) Basophils % (Manual) Seg Neutrophils # Seg Neutrophils # Man Lymphocytes # (Manual) Monocytes # (Manual) PT INR APTT Fibrinogen D-Dimer ABG pH 7.479 H POC ABG pCO2 POC ABG pO2 ABG pO2 143.1 H ABG HCO3 ABG O2 Saturation ABG Base Excess ABG Hemoglobin 10.0 L ABG Oxyhemoglobin Oxyhemoglobin Sodium Potassium Chloride Carbon Dioxide BUN Creatinine Glucose POC Glucose 325 H 315 H Lactic Acid Calcium Phosphorus Magnesium AST ALT Alkaline Phosphatase C-Reactive Protein Total Protein Albumin Triglycerides Ur Specific [place] Urine Creatinine Crossmatch 06/17/21 06/17/21 06/17/21 05:18 05:30 05:30 WBC RBC 3.17 L Hgb 8.2 L Hct 25.5 L MCV MCH 26 L RDW 21.2 H Plt Count 128 L Lymph % (Auto) [place] % (Auto) Lymph # (Auto) [place] # (Auto) Seg Neutrophils % Seg Neuts % (Manual) Lymphocytes % (Manual) Monocytes % (Manual) Basophils % (Manual) Seg Neutrophils # Seg Neutrophils # Man Lymphocytes # (Manual) Monocytes # (Manual) PT INR APTT Fibrinogen D-Dimer ABG pH POC ABG pCO2 POC ABG pO2 ABG pO2 ABG HCO3 ABG O2 Saturation ABG Base Excess ABG Hemoglobin ABG Oxyhemoglobin Oxyhemoglobin Sodium 148 H Potassium Chloride 113.7 H Carbon Dioxide 20 L BUN 57 H Creatinine 1.4 H Glucose 351 H POC Glucose 324 H Lactic Acid Calcium 8.0 L Phosphorus 2.30 L Magnesium AST ALT Alkaline Phosphatase C-Reactive Protein Total Protein Albumin Triglycerides Ur Specific [place] Urine Creatinine Crossmatch 06/17/21 06/17/21 06/17/21 11:49 17:43 21:42 WBC RBC Hgb Hct MCV MCH RDW Plt Count Lymph % (Auto) [place] % (Auto) Lymph # (Auto) [place] # (Auto) Seg Neutrophils % Seg Neuts % (Manual) Lymphocytes % (Manual) Monocytes % (Manual) Basophils % (Manual) Seg Neutrophils # Seg Neutrophils # Man Lymphocytes # (Manual) Monocytes # (Manual) PT INR APTT Fibrinogen D-Dimer ABG pH POC ABG pCO2 POC ABG pO2 ABG pO2 ABG HCO3 ABG O2 Saturation ABG Base Excess ABG Hemoglobin ABG Oxyhemoglobin Oxyhemoglobin Sodium Potassium Chloride Carbon Dioxide BUN Creatinine Glucose POC Glucose 305 H 307 H 286 H Lactic Acid Calcium Phosphorus Magnesium AST ALT Alkaline Phosphatase C-Reactive Protein Total Protein Albumin Triglycerides Ur Specific [place] Urine Creatinine Crossmatch 06/17/21 06/18/21 06/18/21 23:59 04:20 04:37 WBC RBC 3.53 L Hgb 9.1 L Hct 28.7 L MCV MCH 26 L RDW 21.3 H Plt Count Lymph % (Auto) [place] % (Auto) Lymph # (Auto) [place] # (Auto) Seg Neutrophils % Seg Neuts % (Manual) Lymphocytes % (Manual) Monocytes % (Manual) Basophils % (Manual) Seg Neutrophils # Seg Neutrophils # Man Lymphocytes # (Manual) Monocytes # (Manual) PT INR APTT Fibrinogen D-Dimer ABG pH 7.495 H POC ABG pCO2 POC ABG pO2 ABG pO2 108.3 H ABG HCO3 ABG O2 Saturation ABG Base Excess -2.1 L ABG Hemoglobin 10.0 L ABG Oxyhemoglobin Oxyhemoglobin Sodium Potassium Chloride Carbon Dioxide BUN Creatinine Glucose POC Glucose 264 H Lactic Acid Calcium Phosphorus Magnesium AST ALT Alkaline Phosphatase C-Reactive Protein Total Protein Albumin Triglycerides Ur Specific [place] Urine Creatinine Crossmatch 06/18/21 06/18/21 06/18/21 04:37 05:32 11:21 WBC RBC Hgb Hct MCV MCH RDW Plt Count Lymph % (Auto) [place] % (Auto) Lymph # (Auto) [place] # (Auto) Seg Neutrophils % Seg Neuts % (Manual) Lymphocytes % (Manual) Monocytes % (Manual) Basophils % (Manual) Seg Neutrophils # Seg Neutrophils # Man Lymphocytes # (Manual) Monocytes # (Manual) PT INR APTT Fibrinogen D-Dimer ABG pH POC ABG pCO2 POC ABG pO2 ABG pO2 ABG HCO3 ABG O2 Saturation ABG Base Excess ABG Hemoglobin ABG Oxyhemoglobin Oxyhemoglobin Sodium 148 H Potassium Chloride 114.7 H Carbon Dioxide BUN 59 H Creatinine 1.3 H Glucose 329 H POC Glucose 293 H 291 H Lactic Acid Calcium 8.1 L Phosphorus Magnesium AST ALT Alkaline Phosphatase C-Reactive Protein Total Protein Albumin Triglycerides Ur Specific [place] Urine Creatinine Crossmatch 06/18/21 06/18/21 06/19/21 18:21 21:46 00:15 WBC RBC Hgb Hct MCV MCH RDW Plt Count Lymph % (Auto) [place] % (Auto) Lymph # (Auto) [place] # (Auto) Seg Neutrophils % Seg Neuts % (Manual) Lymphocytes % (Manual) Monocytes % (Manual) Basophils % (Manual) Seg Neutrophils # Seg Neutrophils # Man Lymphocytes # (Manual) Monocytes # (Manual) PT INR APTT Fibrinogen D-Dimer ABG pH POC ABG pCO2 POC ABG pO2 ABG pO2 ABG HCO3 ABG O2 Saturation ABG Base Excess ABG Hemoglobin ABG Oxyhemoglobin Oxyhemoglobin Sodium Potassium Chloride Carbon Dioxide BUN Creatinine Glucose POC Glucose 239 H 259 H 310 H Lactic Acid Calcium Phosphorus Magnesium AST ALT Alkaline Phosphatase C-Reactive Protein Total Protein Albumin Triglycerides Ur Specific [place] Urine Creatinine Crossmatch 06/19/21 06/19/21 06/19/21 04:00 04:00 04:50 WBC RBC 3.64 L Hgb 9.1 L Hct 29.1 L MCV MCH 25 L RDW 21.5 H Plt Count Lymph % (Auto) [place] % (Auto) Lymph # (Auto) [place] # (Auto) Seg Neutrophils % Seg Neuts % (Manual) Lymphocytes % (Manual) Monocytes % (Manual) Basophils % (Manual) Seg Neutrophils # Seg Neutrophils # Man Lymphocytes # (Manual) Monocytes # (Manual) PT INR APTT Fibrinogen D-Dimer ABG pH POC ABG pCO2 POC ABG pO2 ABG pO2 78.9 L ABG HCO3 ABG O2 Saturation ABG Base Excess -3.2 L ABG Hemoglobin 7.6 L ABG Oxyhemoglobin Oxyhemoglobin Sodium 148 H Potassium Chloride 114.9 H Carbon Dioxide 19 L BUN 59 H Creatinine Glucose 345 H POC Glucose Lactic Acid Calcium 8.1 L Phosphorus 4.60 H D Magnesium 2.40 H AST ALT Alkaline Phosphatase C-Reactive Protein Total Protein Albumin Triglycerides Ur Specific [place] Urine Creatinine Crossmatch 06/19/21 06/19/21 06/19/21 06:28 11:11 17:20 WBC RBC Hgb Hct MCV MCH RDW Plt Count Lymph % (Auto) [place] % (Auto) Lymph # (Auto) [place] # (Auto) Seg Neutrophils % Seg Neuts % (Manual) Lymphocytes % (Manual) Monocytes % (Manual) Basophils % (Manual) Seg Neutrophils # Seg Neutrophils # Man Lymphocytes # (Manual) Monocytes # (Manual) PT 29.7 H INR 2.57 H APTT Fibrinogen D-Dimer ABG pH POC ABG pCO2 POC ABG pO2 ABG pO2 ABG HCO3 ABG O2 Saturation ABG Base Excess ABG Hemoglobin ABG Oxyhemoglobin Oxyhemoglobin Sodium Potassium Chloride Carbon Dioxide BUN Creatinine Glucose POC Glucose 279 H 275 H Lactic Acid Calcium Phosphorus Magnesium AST ALT Alkaline Phosphatase C-Reactive Protein Total Protein Albumin Triglycerides Ur Specific [place] Urine Creatinine Crossmatch 06/19/21 06/19/21 06/19/21 18:30 19:20 23:27 WBC RBC Hgb 8.0 L Hct 25.0 L MCV MCH RDW Plt Count Lymph % (Auto) [place] % (Auto) Lymph # (Auto) [place] # (Auto) Seg Neutrophils % Seg Neuts % (Manual) Lymphocytes % (Manual) Monocytes % (Manual) Basophils % (Manual) Seg Neutrophils # Seg Neutrophils # Man Lymphocytes # (Manual) Monocytes # (Manual) PT INR APTT Fibrinogen D-Dimer ABG pH POC ABG pCO2 POC ABG pO2 ABG pO2 ABG HCO3 ABG O2 Saturation ABG Base Excess ABG Hemoglobin ABG Oxyhemoglobin Oxyhemoglobin Sodium Potassium Chloride Carbon Dioxide BUN Creatinine Glucose POC Glucose 279 H 290 H Lactic Acid Calcium Phosphorus Magnesium AST ALT Alkaline Phosphatase C-Reactive Protein Total Protein Albumin Triglycerides Ur Specific [place] Urine Creatinine Crossmatch 06/20/21 06/20/21 06/20/21 00:00 04:33 04:33 WBC 22.3 H RBC 3.31 L Hgb 7.4 L 8.5 L Hct 22.5 L 26.5 L MCV MCH 26 L RDW 21.5 H Plt Count Lymph % (Auto) [place] % (Auto) Lymph # (Auto) [place] # (Auto) Seg Neutrophils % Seg Neuts % (Manual) Lymphocytes % (Manual) Monocytes % (Manual) Basophils % (Manual) Seg Neutrophils # Seg Neutrophils # Man Lymphocytes # (Manual) Monocytes # (Manual) PT INR APTT Fibrinogen D-Dimer ABG pH POC ABG pCO2 POC ABG pO2 ABG pO2 ABG HCO3 ABG O2 Saturation ABG Base Excess ABG Hemoglobin ABG Oxyhemoglobin Oxyhemoglobin Sodium 148 H Potassium Chloride 114.2 H Carbon Dioxide BUN 70 H Creatinine 1.4 H Glucose 313 H POC Glucose Lactic Acid Calcium 8.2 L Phosphorus Magnesium 2.50 H AST ALT Alkaline Phosphatase C-Reactive Protein Total Protein Albumin Triglycerides Ur Specific [place] Urine Creatinine Crossmatch 06/20/21 06/20/21 06/20/21 04:33 05:27 11:21 WBC RBC Hgb Hct MCV MCH RDW Plt Count Lymph % (Auto) [place] % (Auto) Lymph # (Auto) [place] # (Auto) Seg Neutrophils % Seg Neuts % (Manual) Lymphocytes % (Manual) Monocytes % (Manual) Basophils % (Manual) Seg Neutrophils # Seg Neutrophils # Man Lymphocytes # (Manual) Monocytes # (Manual) PT 18.3 H INR 1.37 H APTT Fibrinogen D-Dimer ABG pH POC ABG pCO2 POC ABG pO2 ABG pO2 ABG HCO3 ABG O2 Saturation ABG Base Excess ABG Hemoglobin ABG Oxyhemoglobin Oxyhemoglobin Sodium Potassium Chloride Carbon Dioxide BUN Creatinine Glucose POC Glucose 288 H 306 H Lactic Acid Calcium Phosphorus Magnesium AST ALT Alkaline Phosphatase C-Reactive Protein Total Protein Albumin Triglycerides Ur Specific [place] Urine Creatinine Crossmatch 06/20/21 06/20/21 06/20/21 12:23 15:56 18:20 WBC RBC Hgb 8.2 L 8.1 L Hct 25.9 L 25.5 L MCV MCH RDW Plt Count Lymph % (Auto) [place] % (Auto) Lymph # (Auto) [place] # (Auto) Seg Neutrophils % Seg Neuts % (Manual) Lymphocytes % (Manual) Monocytes % (Manual) Basophils % (Manual) Seg Neutrophils # Seg Neutrophils # Man Lymphocytes # (Manual) Monocytes # (Manual) PT INR APTT Fibrinogen D-Dimer ABG pH POC ABG pCO2 POC ABG pO2 ABG pO2 ABG HCO3 ABG O2 Saturation ABG Base Excess ABG Hemoglobin ABG Oxyhemoglobin Oxyhemoglobin Sodium Potassium Chloride Carbon Dioxide BUN Creatinine Glucose POC Glucose 293 H Lactic Acid Calcium Phosphorus Magnesium AST ALT Alkaline Phosphatase C-Reactive Protein Total Protein Albumin Triglycerides Ur Specific [place] Urine Creatinine Crossmatch 06/20/21 06/21/21 06/21/21 23:11 04:20 04:42 WBC 15.1 H RBC 2.84 L Hgb 7.3 L Hct 23.1 L MCV MCH 26 L RDW 21.5 H Plt Count Lymph % (Auto) 3.5 L [place] % (Auto) 11.7 H Lymph # (Auto) 0.5 L [place] # (Auto) 1.8 H Seg Neutrophils % 84.7 H Seg Neuts % (Manual) Lymphocytes % (Manual) Monocytes % (Manual) Basophils % (Manual) Seg Neutrophils # 12.8 H Seg Neutrophils # Man Lymphocytes # (Manual) Monocytes # (Manual) PT INR APTT Fibrinogen D-Dimer ABG pH POC ABG pCO2 POC ABG pO2 ABG pO2 98.5 H ABG HCO3 ABG O2 Saturation ABG Base Excess ABG Hemoglobin 7.2 L ABG Oxyhemoglobin Oxyhemoglobin Sodium Potassium Chloride Carbon Dioxide BUN Creatinine Glucose POC Glucose 206 H Lactic Acid Calcium Phosphorus Magnesium AST ALT Alkaline Phosphatase C-Reactive Protein Total Protein Albumin Triglycerides Ur Specific [place] Urine Creatinine Crossmatch 06/21/21 06/21/21 06/21/21 04:42 05:08 11:06 WBC RBC Hgb Hct MCV MCH RDW Plt Count Lymph % (Auto) [place] % (Auto) Lymph # (Auto) [place] # (Auto) Seg Neutrophils % Seg Neuts % (Manual) Lymphocytes % (Manual) Monocytes % (Manual) Basophils % (Manual) Seg Neutrophils # Seg Neutrophils # Man Lymphocytes # (Manual) Monocytes # (Manual) PT INR APTT Fibrinogen D-Dimer ABG pH POC ABG pCO2 POC ABG pO2 ABG pO2 ABG HCO3 ABG O2 Saturation ABG Base Excess ABG Hemoglobin ABG Oxyhemoglobin Oxyhemoglobin Sodium 151 H Potassium Chloride 117.2 H Carbon Dioxide 21 L BUN 75 H Creatinine 1.6 H Glucose 216 H POC Glucose 190 H 204 H Lactic Acid Calcium 7.9 L Phosphorus Magnesium 2.60 H AST ALT Alkaline Phosphatase C-Reactive Protein Total Protein Albumin Triglycerides 254 H Ur Specific [place] Urine Creatinine Crossmatch 06/21/21 06/21/21 06/21/21 14:00 16:42 21:52 WBC RBC Hgb 7.1 L 7.2 L Hct 22.0 L 22.1 L MCV MCH RDW Plt Count Lymph % (Auto) [place] % (Auto) Lymph # (Auto) [place] # (Auto) Seg Neutrophils % Seg Neuts % (Manual) Lymphocytes % (Manual) Monocytes % (Manual) Basophils % (Manual) Seg Neutrophils # Seg Neutrophils # Man Lymphocytes # (Manual) Monocytes # (Manual) PT INR APTT Fibrinogen D-Dimer ABG pH POC ABG pCO2 POC ABG pO2 ABG pO2 ABG HCO3 ABG O2 Saturation ABG Base Excess ABG Hemoglobin ABG Oxyhemoglobin Oxyhemoglobin Sodium Potassium Chloride Carbon Dioxide BUN Creatinine Glucose POC Glucose 207 H Lactic Acid Calcium Phosphorus Magnesium AST ALT Alkaline Phosphatase C-Reactive Protein Total Protein Albumin Triglycerides Ur Specific [place] Urine Creatinine Crossmatch 06/21/21 06/22/21 06/22/21 23:29 04:30 04:30 WBC 16.8 H RBC 2.93 L Hgb 7.4 L Hct 23.9 L MCV MCH 25 L RDW 21.8 H Plt Count Lymph % (Auto) [place] % (Auto) Lymph # (Auto) [place] # (Auto) Seg Neutrophils % Seg Neuts % (Manual) Lymphocytes % (Manual) Monocytes % (Manual) Basophils % (Manual) Seg Neutrophils # Seg Neutrophils # Man Lymphocytes # (Manual) Monocytes # (Manual) PT INR APTT Fibrinogen D-Dimer ABG pH POC ABG pCO2 POC ABG pO2 ABG pO2 ABG HCO3 ABG O2 Saturation ABG Base Excess ABG Hemoglobin ABG Oxyhemoglobin Oxyhemoglobin Sodium 151 H Potassium Chloride 118.7 H Carbon Dioxide BUN 57 H Creatinine Glucose 238 H POC Glucose 273 H Lactic Acid Calcium 8.0 L Phosphorus Magnesium 2.70 H AST ALT Alkaline Phosphatase C-Reactive Protein Total Protein Albumin Triglycerides Ur Specific [place] Urine Creatinine Crossmatch 06/22/21 06/22/21 06/22/21 05:17 11:31 14:20 WBC RBC Hgb 7.4 L Hct 22.5 L MCV MCH RDW Plt Count Lymph % (Auto) [place] % (Auto) Lymph # (Auto) [place] # (Auto) Seg Neutrophils % Seg Neuts % (Manual) Lymphocytes % (Manual) Monocytes % (Manual) Basophils % (Manual) Seg Neutrophils # Seg Neutrophils # Man Lymphocytes # (Manual) Monocytes # (Manual) PT INR APTT Fibrinogen D-Dimer ABG pH POC ABG pCO2 POC ABG pO2 ABG pO2 ABG HCO3 ABG O2 Saturation ABG Base Excess ABG Hemoglobin ABG Oxyhemoglobin Oxyhemoglobin Sodium Potassium Chloride Carbon Dioxide BUN Creatinine Glucose POC Glucose 214 H 214 H Lactic Acid Calcium Phosphorus Magnesium AST ALT Alkaline Phosphatase C-Reactive Protein Total Protein Albumin Triglycerides Ur Specific [place] Urine Creatinine Crossmatch 06/22/21 06/22/21 06/23/21 17:18 23:47 05:33 WBC RBC Hgb Hct MCV MCH RDW Plt Count Lymph % (Auto) [place] % (Auto) Lymph # (Auto) [place] # (Auto) Seg Neutrophils % Seg Neuts % (Manual) Lymphocytes % (Manual) Monocytes % (Manual) Basophils % (Manual) Seg Neutrophils # Seg Neutrophils # Man Lymphocytes # (Manual) Monocytes # (Manual) PT INR APTT Fibrinogen D-Dimer ABG pH POC ABG pCO2 POC ABG pO2 ABG pO2 ABG HCO3 ABG O2 Saturation ABG Base Excess ABG Hemoglobin ABG Oxyhemoglobin Oxyhemoglobin Sodium Potassium Chloride Carbon Dioxide BUN Creatinine Glucose POC Glucose 238 H 227 H 202 H Lactic Acid Calcium Phosphorus Magnesium AST ALT Alkaline Phosphatase C-Reactive Protein Total Protein Albumin Triglycerides Ur Specific [place] Urine Creatinine Crossmatch 06/23/21 06/23/2122 10:04 10:04 11:06 WBC 20.3 H RBC 2.71 L Hgb 7.3 L Hct 21.8 L MCV MCH 27 L RDW 22.1 H Plt Count Lymph % (Auto) [place] % (Auto) Lymph # (Auto) [place] # (Auto) Seg Neutrophils % Seg Neuts % (Manual) Lymphocytes % (Manual) Monocytes % (Manual) Basophils % (Manual) Seg Neutrophils # Seg Neutrophils # Man Lymphocytes # (Manual) Monocytes # (Manual) PT INR APTT Fibrinogen D-Dimer ABG pH POC ABG pCO2 POC ABG pO2 ABG pO2 ABG HCO3 ABG O2 Saturation ABG Base Excess ABG Hemoglobin ABG Oxyhemoglobin Oxyhemoglobin Sodium 151 H Potassium 3.2 L Chloride 116.9 H Carbon Dioxide BUN 40 H Creatinine Glucose 208 H POC Glucose 204 H Lactic Acid Calcium 8.0 L Phosphorus 1.80 L D Magnesium AST ALT Alkaline Phosphatase C-Reactive Protein Total Protein Albumin Triglycerides Ur Specific [place] Urine Creatinine Crossmatch 06/23/21 06/23/21 06/24/21 16:11 23:47 04:00 WBC 16.9 H RBC 2.49 L Hgb 6.6 L Hct 20.3 L MCV MCH 26 L RDW 22.6 H Plt Count Lymph % (Auto) [place] % (Auto) Lymph # (Auto) [place] # (Auto) Seg Neutrophils % Seg Neuts % (Manual) Lymphocytes % (Manual) Monocytes % (Manual) Basophils % (Manual) Seg Neutrophils # Seg Neutrophils # Man Lymphocytes # (Manual) Monocytes # (Manual) PT INR APTT Fibrinogen D-Dimer ABG pH POC ABG pCO2 POC ABG pO2 ABG pO2 ABG HCO3 ABG O2 Saturation ABG Base Excess ABG Hemoglobin ABG Oxyhemoglobin Oxyhemoglobin Sodium Potassium Chloride Carbon Dioxide BUN Creatinine Glucose POC Glucose 228 H 189 H Lactic Acid Calcium Phosphorus Magnesium AST ALT Alkaline Phosphatase C-Reactive Protein Total Protein Albumin Triglycerides Ur Specific [place] Urine Creatinine Crossmatch 06/24/21 06/24/21 06/24/21 04:00 05:43 06:40 WBC RBC Hgb Hct MCV MCH RDW Plt Count Lymph % (Auto) [place] % (Auto) Lymph # (Auto) [place] # (Auto) Seg Neutrophils % Seg Neuts % (Manual) Lymphocytes % (Manual) Monocytes % (Manual) Basophils % (Manual) Seg Neutrophils # Seg Neutrophils # Man Lymphocytes # (Manual) Monocytes # (Manual) PT INR APTT Fibrinogen D-Dimer ABG pH POC ABG pCO2 POC ABG pO2 ABG pO2 ABG HCO3 ABG O2 Saturation ABG Base Excess ABG Hemoglobin ABG Oxyhemoglobin Oxyhemoglobin Sodium 148 H Potassium 3.2 L Chloride 115.6 H Carbon Dioxide BUN 35 H Creatinine Glucose 153 H POC Glucose 134 H Lactic Acid Calcium 7.9 L Phosphorus 2.40 L D Magnesium AST ALT Alkaline Phosphatase C-Reactive Protein Total Protein Albumin Triglycerides Ur Specific [place] Urine Creatinine Crossmatch See Detail 06/24/21 06/24/21 06/24/21 11:08 16:47 21:49 WBC RBC Hgb Hct MCV MCH RDW Plt Count Lymph % (Auto) [place] % (Auto) Lymph # (Auto) [place] # (Auto) Seg Neutrophils % Seg Neuts % (Manual) Lymphocytes % (Manual) Monocytes % (Manual) Basophils % (Manual) Seg Neutrophils # Seg Neutrophils # Man Lymphocytes # (Manual) Monocytes # (Manual) PT INR APTT Fibrinogen D-Dimer ABG pH POC ABG pCO2 POC ABG pO2 ABG pO2 ABG HCO3 ABG O2 Saturation ABG Base Excess ABG Hemoglobin ABG Oxyhemoglobin Oxyhemoglobin Sodium Potassium Chloride Carbon Dioxide BUN Creatinine Glucose POC Glucose 153 H 201 H 132 H Lactic Acid Calcium Phosphorus Magnesium AST ALT Alkaline Phosphatase C-Reactive Protein Total Protein Albumin Triglycerides Ur Specific [place] Urine Creatinine Crossmatch 06/24/21 06/25/21 06/25/21 23:24 05:30 09:00 WBC RBC Hgb 8.3 L Hct 27.0 L MCV MCH RDW Plt Count Lymph % (Auto) [place] % (Auto) Lymph # (Auto) [place] # (Auto) Seg Neutrophils % Seg Neuts % (Manual) Lymphocytes % (Manual) Monocytes % (Manual) Basophils % (Manual) Seg Neutrophils # Seg Neutrophils # Man Lymphocytes # (Manual) Monocytes # (Manual) PT INR APTT Fibrinogen D-Dimer ABG pH POC ABG pCO2 POC ABG pO2 ABG pO2 ABG HCO3 ABG O2 Saturation ABG Base Excess ABG Hemoglobin ABG Oxyhemoglobin Oxyhemoglobin Sodium Potassium Chloride Carbon Dioxide BUN Creatinine Glucose POC Glucose 170 H 151 H Lactic Acid Calcium Phosphorus Magnesium AST ALT Alkaline Phosphatase C-Reactive Protein Total Protein Albumin Triglycerides Ur Specific [place] Urine Creatinine Crossmatch 06/25/21 06/25/21 06/25/21 11:29 14:24 16:48 WBC RBC Hgb 8.5 L Hct 27.5 L MCV MCH RDW Plt Count Lymph % (Auto) [place] % (Auto) Lymph # (Auto) [place] # (Auto) Seg Neutrophils % Seg Neuts % (Manual) Lymphocytes % (Manual) Monocytes % (Manual) Basophils % (Manual) Seg Neutrophils # Seg Neutrophils # Man Lymphocytes # (Manual) Monocytes # (Manual) PT INR APTT Fibrinogen D-Dimer ABG pH POC ABG pCO2 POC ABG pO2 ABG pO2 ABG HCO3 ABG O2 Saturation ABG Base Excess ABG Hemoglobin ABG Oxyhemoglobin Oxyhemoglobin Sodium Potassium Chloride Carbon Dioxide BUN Creatinine Glucose POC Glucose 189 H 224 H Lactic Acid Calcium Phosphorus Magnesium AST ALT Alkaline Phosphatase C-Reactive Protein Total Protein Albumin Triglycerides Ur Specific [place] Urine Creatinine Crossmatch 06/25/21 06/25/21 06/25/21 23:39 Unknown Unknown WBC 16.5 H RBC 2.90 L Hgb 8.0 L Hct 23.8 L MCV MCH RDW 22.8 H Plt Count Lymph % (Auto) [place] % (Auto) Lymph # (Auto) [place] # (Auto) Seg Neutrophils % Seg Neuts % (Manual) Lymphocytes % (Manual) Monocytes % (Manual) Basophils % (Manual) Seg Neutrophils # Seg Neutrophils # Man Lymphocytes # (Manual) Monocytes # (Manual) PT INR APTT Fibrinogen D-Dimer ABG pH POC ABG pCO2 POC ABG pO2 ABG pO2 ABG HCO3 ABG O2 Saturation ABG Base Excess ABG Hemoglobin ABG Oxyhemoglobin Oxyhemoglobin Sodium 149 H Potassium Chloride 115.6 H Carbon Dioxide BUN 28 H Creatinine Glucose 157 H POC Glucose 187 H Lactic Acid Calcium 8.0 L Phosphorus Magnesium AST ALT Alkaline Phosphatase C-Reactive Protein Total Protein Albumin Triglycerides Ur Specific [place] Urine Creatinine Crossmatch 06/26/21 06/26/21 06/26/21 05:22 05:29 05:29 WBC 16.2 H RBC 3.03 L Hgb 8.0 L Hct 25.1 L MCV MCH 26 L RDW 23.2 H Plt Count Lymph % (Auto) [place] % (Auto) Lymph # (Auto) [place] # (Auto) Seg Neutrophils % Seg Neuts % (Manual) Lymphocytes % (Manual) Monocytes % (Manual) Basophils % (Manual) Seg Neutrophils # Seg Neutrophils # Man Lymphocytes # (Manual) Monocytes # (Manual) PT INR APTT Fibrinogen D-Dimer ABG pH POC ABG pCO2 POC ABG pO2 ABG pO2 ABG HCO3 ABG O2 Saturation ABG Base Excess ABG Hemoglobin ABG Oxyhemoglobin Oxyhemoglobin Sodium 150 H Potassium Chloride 114.8 H Carbon Dioxide BUN 29 H Creatinine Glucose 229 H POC Glucose 211 H Lactic Acid Calcium 8.2 L Phosphorus Magnesium AST ALT Alkaline Phosphatase C-Reactive Protein Total Protein Albumin Triglycerides Ur Specific [place] Urine Creatinine Crossmatch 06/26/21 06/26/21 06/26/21 11:05 15:59 22:00 WBC RBC Hgb Hct MCV MCH RDW Plt Count Lymph % (Auto) [place] % (Auto) Lymph # (Auto) [place] # (Auto) Seg Neutrophils % Seg Neuts % (Manual) Lymphocytes % (Manual) Monocytes % (Manual) Basophils % (Manual) Seg Neutrophils # Seg Neutrophils # Man Lymphocytes # (Manual) Monocytes # (Manual) PT INR APTT Fibrinogen D-Dimer ABG pH POC ABG pCO2 POC ABG pO2 ABG pO2 ABG HCO3 ABG O2 Saturation ABG Base Excess ABG Hemoglobin ABG Oxyhemoglobin Oxyhemoglobin Sodium Potassium Chloride Carbon Dioxide BUN Creatinine Glucose POC Glucose 213 H 222 H 161 H Lactic Acid Calcium Phosphorus Magnesium AST ALT Alkaline Phosphatase C-Reactive Protein Total Protein Albumin Triglycerides Ur Specific [place] Urine Creatinine Crossmatch 06/26/21 06/27/21 06/27/21 23:24 04:15 04:15 WBC 14.3 H RBC 2.96 L Hgb 8.1 L Hct 24.6 L MCV MCH 27 L RDW 23.0 H Plt Count Lymph % (Auto) [place] % (Auto) Lymph # (Auto) [place] # (Auto) Seg Neutrophils % Seg Neuts % (Manual) Lymphocytes % (Manual) Monocytes % (Manual) Basophils % (Manual) Seg Neutrophils # Seg Neutrophils # Man Lymphocytes # (Manual) Monocytes # (Manual) PT INR APTT Fibrinogen D-Dimer ABG pH POC ABG pCO2 POC ABG pO2 ABG pO2 ABG HCO3 ABG O2 Saturation ABG Base Excess ABG Hemoglobin ABG Oxyhemoglobin Oxyhemoglobin Sodium 150 H Potassium Chloride 113.8 H Carbon Dioxide BUN 26 H Creatinine Glucose 246 H POC Glucose 164 H Lactic Acid Calcium 7.8 L Phosphorus Magnesium AST ALT Alkaline Phosphatase C-Reactive Protein Total Protein Albumin Triglycerides Ur Specific [place] Urine Creatinine Crossmatch 06/27/21 06/27/21 06/27/21 05:44 11:07 16:06 WBC RBC Hgb Hct MCV MCH RDW Plt Count Lymph % (Auto) [place] % (Auto) Lymph # (Auto) [place] # (Auto) Seg Neutrophils % Seg Neuts % (Manual) Lymphocytes % (Manual) Monocytes % (Manual) Basophils % (Manual) Seg Neutrophils # Seg Neutrophils # Man Lymphocytes # (Manual) Monocytes # (Manual) PT INR APTT Fibrinogen D-Dimer ABG pH POC ABG pCO2 POC ABG pO2 ABG pO2 ABG HCO3 ABG O2 Saturation ABG Base Excess ABG Hemoglobin ABG Oxyhemoglobin Oxyhemoglobin Sodium Potassium Chloride Carbon Dioxide BUN Creatinine Glucose POC Glucose 226 H 204 H 224 H Lactic Acid Calcium Phosphorus Magnesium AST ALT Alkaline Phosphatase C-Reactive Protein Total Protein Albumin Triglycerides Ur Specific [place] Urine Creatinine Crossmatch 06/27/21 06/28/21 06/28/21 23:49 04:00 04:00 WBC 15.4 H RBC 3.05 L Hgb 8.2 L Hct 25.0 L MCV MCH 27 L RDW 22.6 H Plt Count Lymph % (Auto) [place] % (Auto) Lymph # (Auto) [place] # (Auto) Seg Neutrophils % Seg Neuts % (Manual) Lymphocytes % (Manual) Monocytes % (Manual) Basophils % (Manual) Seg Neutrophils # Seg Neutrophils # Man Lymphocytes # (Manual) Monocytes # (Manual) PT INR APTT Fibrinogen D-Dimer ABG pH POC ABG pCO2 POC ABG pO2 ABG pO2 ABG HCO3 ABG O2 Saturation ABG Base Excess ABG Hemoglobin ABG Oxyhemoglobin Oxyhemoglobin Sodium 152 H Potassium 3.0 L Chloride 114.9 H Carbon Dioxide BUN 24 H Creatinine Glucose 158 H POC Glucose 195 H Lactic Acid Calcium 8.1 L Phosphorus Magnesium AST ALT Alkaline Phosphatase C-Reactive Protein Total Protein Albumin Triglycerides Ur Specific [place] Urine Creatinine Crossmatch 06/28/21 06/28/21 06/28/21 05:05 11:47 17:21 WBC RBC Hgb Hct MCV MCH RDW Plt Count Lymph % (Auto) [place] % (Auto) Lymph # (Auto) [place] # (Auto) Seg Neutrophils % Seg Neuts % (Manual) Lymphocytes % (Manual) Monocytes % (Manual) Basophils % (Manual) Seg Neutrophils # Seg Neutrophils # Man Lymphocytes # (Manual) Monocytes # (Manual) PT INR APTT Fibrinogen D-Dimer ABG pH POC ABG pCO2 POC ABG pO2 ABG pO2 ABG HCO3 ABG O2 Saturation ABG Base Excess ABG Hemoglobin ABG Oxyhemoglobin Oxyhemoglobin Sodium Potassium Chloride Carbon Dioxide BUN Creatinine Glucose POC Glucose 121 H 164 H 166 H Lactic Acid Calcium Phosphorus Magnesium AST ALT Alkaline Phosphatase C-Reactive Protein Total Protein Albumin Triglycerides Ur Specific [place] Urine Creatinine Crossmatch 06/28/21 06/28/21 06/29/21 18:14 21:54 00:55 WBC RBC Hgb Hct MCV MCH RDW Plt Count Lymph % (Auto) [place] % (Auto) Lymph # (Auto) [place] # (Auto) Seg Neutrophils % Seg Neuts % (Manual) Lymphocytes % (Manual) Monocytes % (Manual) Basophils % (Manual) Seg Neutrophils # Seg Neutrophils # Man Lymphocytes # (Manual) Monocytes # (Manual) PT INR APTT Fibrinogen D-Dimer ABG pH POC ABG pCO2 POC ABG pO2 ABG pO2 ABG HCO3 ABG O2 Saturation ABG Base Excess ABG Hemoglobin ABG Oxyhemoglobin Oxyhemoglobin Sodium Potassium Chloride Carbon Dioxide BUN Creatinine Glucose POC Glucose 150 H 148 H 176 H Lactic Acid Calcium Phosphorus Magnesium AST ALT Alkaline Phosphatase C-Reactive Protein Total Protein Albumin Triglycerides Ur Specific [place] Urine Creatinine Crossmatch 06/29/21 06/29/21 06/29/21 04:00 04:00 05:20 WBC 15.3 H RBC 3.04 L Hgb 8.0 L Hct 25.0 L MCV MCH 26 L RDW 22.3 H Plt Count Lymph % (Auto) [place] % (Auto) Lymph # (Auto) [place] # (Auto) Seg Neutrophils % Seg Neuts % (Manual) Lymphocytes % (Manual) Monocytes % (Manual) Basophils % (Manual) Seg Neutrophils # Seg Neutrophils # Man Lymphocytes # (Manual) Monocytes # (Manual) PT INR APTT Fibrinogen D-Dimer ABG pH POC ABG pCO2 POC ABG pO2 ABG pO2 ABG HCO3 ABG O2 Saturation ABG Base Excess ABG Hemoglobin ABG Oxyhemoglobin Oxyhemoglobin Sodium Potassium 3.1 L Chloride 108.7 H Carbon Dioxide BUN 20 H Creatinine Glucose 194 H POC Glucose 185 H Lactic Acid Calcium 8.0 L Phosphorus Magnesium AST ALT Alkaline Phosphatase C-Reactive Protein Total Protein Albumin Triglycerides Ur Specific [place] Urine Creatinine Crossmatch 06/29/21 06/29/21 06/30/21 12:18 17:20 00:49 WBC RBC Hgb Hct MCV MCH RDW Plt Count Lymph % (Auto) [place] % (Auto) Lymph # (Auto) [place] # (Auto) Seg Neutrophils % Seg Neuts % (Manual) Lymphocytes % (Manual) Monocytes % (Manual) Basophils % (Manual) Seg Neutrophils # Seg Neutrophils # Man Lymphocytes # (Manual) Monocytes # (Manual) PT INR APTT Fibrinogen D-Dimer ABG pH POC ABG pCO2 POC ABG pO2 ABG pO2 ABG HCO3 ABG O2 Saturation ABG Base Excess ABG Hemoglobin ABG Oxyhemoglobin Oxyhemoglobin Sodium Potassium Chloride Carbon Dioxide BUN Creatinine Glucose POC Glucose 135 H 185 H 156 H Lactic Acid Calcium Phosphorus Magnesium AST ALT Alkaline Phosphatase C-Reactive Protein Total Protein Albumin Triglycerides Ur Specific [place] Urine Creatinine Crossmatch 06/30/21 06/30/21 06/30/21 04:25 04:25 08:14 WBC 13.0 H RBC 3.19 L Hgb 8.2 L Hct 26.2 L MCV MCH 26 L RDW 22.3 H Plt Count Lymph % (Auto) [place] % (Auto) Lymph # (Auto) [place] # (Auto) Seg Neutrophils % Seg Neuts % (Manual) 81.0 H Lymphocytes % (Manual) 10.0 L Monocytes % (Manual) 8.0 H Basophils % (Manual) Seg Neutrophils # Seg Neutrophils # Man 10.5 H Lymphocytes # (Manual) Monocytes # (Manual) 1.0 H PT INR APTT Fibrinogen D-Dimer ABG pH POC ABG pCO2 POC ABG pO2 ABG pO2 ABG HCO3 ABG O2 Saturation ABG Base Excess ABG Hemoglobin ABG Oxyhemoglobin Oxyhemoglobin Sodium Potassium 3.0 L Chloride Carbon Dioxide BUN 20 H Creatinine Glucose 104 H POC Glucose 119 H Lactic Acid Calcium 8.3 L Phosphorus Magnesium AST ALT Alkaline Phosphatase C-Reactive Protein Total Protein Albumin Triglycerides Ur Specific [place] Urine Creatinine Crossmatch 06/30/21 06/30/21 06/30/21 11:36 16:24 22:44 WBC RBC Hgb Hct MCV MCH RDW Plt Count Lymph % (Auto) [place] % (Auto) Lymph # (Auto) [place] # (Auto) Seg Neutrophils % Seg Neuts % (Manual) Lymphocytes % (Manual) Monocytes % (Manual) Basophils % (Manual) Seg Neutrophils # Seg Neutrophils # Man Lymphocytes # (Manual) Monocytes # (Manual) PT INR APTT Fibrinogen D-Dimer ABG pH POC ABG pCO2 POC ABG pO2 ABG pO2 ABG HCO3 ABG O2 Saturation ABG Base Excess ABG Hemoglobin ABG Oxyhemoglobin Oxyhemoglobin Sodium Potassium Chloride Carbon Dioxide BUN Creatinine Glucose POC Glucose 154 H 208 H 174 H Lactic Acid Calcium Phosphorus Magnesium AST ALT Alkaline Phosphatase C-Reactive Protein Total Protein Albumin Triglycerides Ur Specific [place] Urine Creatinine Crossmatch 07/01/21 07/01/21 07/01/21 05:29 05:29 05:54 WBC 11.9 H RBC 3.00 L Hgb 8.1 L Hct 24.4 L MCV MCH 27 L RDW 21.7 H Plt Count Lymph % (Auto) [place] % (Auto) Lymph # (Auto) [place] # (Auto) Seg Neutrophils % Seg Neuts % (Manual) Lymphocytes % (Manual) Monocytes % (Manual) Basophils % (Manual) Seg Neutrophils # Seg Neutrophils # Man Lymphocytes # (Manual) Monocytes # (Manual) PT INR APTT Fibrinogen D-Dimer ABG pH POC ABG pCO2 POC ABG pO2 ABG pO2 ABG HCO3 ABG O2 Saturation ABG Base Excess ABG Hemoglobin ABG Oxyhemoglobin Oxyhemoglobin Sodium Potassium Chloride Carbon Dioxide BUN Creatinine Glucose 177 H POC Glucose 170 H Lactic Acid Calcium Phosphorus Magnesium AST ALT Alkaline Phosphatase C-Reactive Protein Total Protein Albumin Triglycerides Ur Specific [place] Urine Creatinine Crossmatch 07/01/21 07/02/21 07/02/21 10:54 05:05 10:18 WBC RBC Hgb Hct MCV MCH RDW Plt Count Lymph % (Auto) [place] % (Auto) Lymph # (Auto) [place] # (Auto) Seg Neutrophils % Seg Neuts % (Manual) Lymphocytes % (Manual) Monocytes % (Manual) Basophils % (Manual) Seg Neutrophils # Seg Neutrophils # Man Lymphocytes # (Manual) Monocytes # (Manual) PT INR APTT Fibrinogen D-Dimer ABG pH 7.488 H POC ABG pCO2 POC ABG pO2 ABG pO2 97.2 H ABG HCO3 27.1 H ABG O2 Saturation ABG Base Excess 3.5 H ABG Hemoglobin 7.9 L ABG Oxyhemoglobin Oxyhemoglobin Sodium Potassium Chloride Carbon Dioxide BUN Creatinine Glucose POC Glucose 184 H 182 H Lactic Acid Calcium Phosphorus Magnesium AST ALT Alkaline Phosphatase C-Reactive Protein Total Protein Albumin Triglycerides Ur Specific [place] Urine Creatinine Crossmatch 07/02/21 07/02/21 07/02/21 12:14 16:18 22:27 WBC RBC Hgb Hct MCV MCH RDW Plt Count Lymph % (Auto) [place] % (Auto) Lymph # (Auto) [place] # (Auto) Seg Neutrophils % Seg Neuts % (Manual) Lymphocytes % (Manual) Monocytes % (Manual) Basophils % (Manual) Seg Neutrophils # Seg Neutrophils # Man Lymphocytes # (Manual) Monocytes # (Manual) PT INR APTT Fibrinogen D-Dimer ABG pH 7.199 L* POC ABG pCO2 POC ABG pO2 ABG pO2 104.5 H ABG HCO3 30.3 H ABG O2 Saturation ABG Base Excess ABG Hemoglobin 9.8 L ABG Oxyhemoglobin Oxyhemoglobin 94.6 L Sodium Potassium Chloride Carbon Dioxide BUN Creatinine Glucose POC Glucose 184 H 194 H Lactic Acid Calcium Phosphorus Magnesium AST ALT Alkaline Phosphatase C-Reactive Protein Total Protein Albumin Triglycerides Ur Specific [place] Urine Creatinine Crossmatch 07/03/21 07/03/21 07/03/21 09:47 10:44 11:24 WBC RBC 3.01 L Hgb 8.3 L Hct 24.3 L MCV MCH RDW 21.7 H Plt Count Lymph % (Auto) 8.4 L [place] % (Auto) Lymph # (Auto) 0.8 L [place] # (Auto) Seg Neutrophils % 80.6 H Seg Neuts % (Manual) Lymphocytes % (Manual) Monocytes % (Manual) Basophils % (Manual) Seg Neutrophils # Seg Neutrophils # Man Lymphocytes # (Manual) Monocytes # (Manual) PT INR APTT Fibrinogen D-Dimer ABG pH POC ABG pCO2 POC ABG pO2 ABG pO2 ABG HCO3 ABG O2 Saturation ABG Base Excess ABG Hemoglobin ABG Oxyhemoglobin Oxyhemoglobin Sodium Potassium 3.0 L Chloride Carbon Dioxide BUN Creatinine Glucose 200 H POC Glucose 180 H Lactic Acid Calcium 8.3 L Phosphorus Magnesium AST ALT Alkaline Phosphatase C-Reactive Protein Total Protein Albumin Triglycerides Ur Specific [place] Urine Creatinine Crossmatch 07/03/21 07/03/21 07/03/21 16:34 22:14 22:15 WBC RBC Hgb Hct MCV MCH RDW Plt Count Lymph % (Auto) [place] % (Auto) Lymph # (Auto) [place] # (Auto) Seg Neutrophils % Seg Neuts % (Manual) Lymphocytes % (Manual) Monocytes % (Manual) Basophils % (Manual) Seg Neutrophils # Seg Neutrophils # Man Lymphocytes # (Manual) Monocytes # (Manual) PT INR APTT Fibrinogen D-Dimer ABG pH POC ABG pCO2 POC ABG pO2 ABG pO2 ABG HCO3 ABG O2 Saturation ABG Base Excess ABG Hemoglobin ABG Oxyhemoglobin Oxyhemoglobin Sodium Potassium Chloride Carbon Dioxide BUN Creatinine Glucose POC Glucose 165 H 174 H 180 H Lactic Acid Calcium Phosphorus Magnesium AST ALT Alkaline Phosphatase C-Reactive Protein Total Protein Albumin Triglycerides Ur Specific [place] Urine Creatinine Crossmatch 07/04/21 07/04/21 07/04/21 00:28 01:44 05:07 WBC RBC Hgb Hct MCV MCH RDW Plt Count Lymph % (Auto) [place] % (Auto) Lymph # (Auto) [place] # (Auto) Seg Neutrophils % Seg Neuts % (Manual) Lymphocytes % (Manual) Monocytes % (Manual) Basophils % (Manual) Seg Neutrophils # Seg Neutrophils # Man Lymphocytes # (Manual) Monocytes # (Manual) PT INR APTT Fibrinogen D-Dimer ABG pH POC ABG pCO2 POC ABG pO2 ABG pO2 107.7 H ABG HCO3 26.7 H ABG O2 Saturation ABG Base Excess ABG Hemoglobin 7.5 L ABG Oxyhemoglobin Oxyhemoglobin Sodium Potassium Chloride Carbon Dioxide BUN Creatinine Glucose POC Glucose 246 H 179 H Lactic Acid Calcium Phosphorus Magnesium AST ALT Alkaline Phosphatase C-Reactive Protein Total Protein Albumin Triglycerides Ur Specific [place] Urine Creatinine Crossmatch 07/04/21 07/04/21 07/04/21 05:13 05:13 10:52 WBC RBC 3.12 L Hgb 8.5 L Hct 25.2 L MCV MCH 27 L RDW 21.3 H Plt Count Lymph % (Auto) 6.1 L [place] % (Auto) Lymph # (Auto) 0.6 L [place] # (Auto) Seg Neutrophils % 85.0 H Seg Neuts % (Manual) Lymphocytes % (Manual) Monocytes % (Manual) Basophils % (Manual) Seg Neutrophils # 8.0 H Seg Neutrophils # Man Lymphocytes # (Manual) Monocytes # (Manual) PT INR APTT Fibrinogen D-Dimer ABG pH POC ABG pCO2 POC ABG pO2 ABG pO2 ABG HCO3 ABG O2 Saturation ABG Base Excess ABG Hemoglobin ABG Oxyhemoglobin Oxyhemoglobin Sodium Potassium 3.4 L Chloride Carbon Dioxide BUN Creatinine Glucose 205 H POC Glucose 146 H Lactic Acid Calcium Phosphorus Magnesium AST ALT Alkaline Phosphatase C-Reactive Protein Total Protein Albumin Triglycerides Ur Specific [place] Urine Creatinine Crossmatch 07/04/21 07/04/21 07/05/21 16:22 23:52 04:38 WBC RBC Hgb Hct MCV MCH RDW Plt Count Lymph % (Auto) [place] % (Auto) Lymph # (Auto) [place] # (Auto) Seg Neutrophils % Seg Neuts % (Manual) Lymphocytes % (Manual) Monocytes % (Manual) Basophils % (Manual) Seg Neutrophils # Seg Neutrophils # Man Lymphocytes # (Manual) Monocytes # (Manual) PT INR APTT Fibrinogen D-Dimer ABG pH POC ABG pCO2 POC ABG pO2 ABG pO2 ABG HCO3 ABG O2 Saturation ABG Base Excess ABG Hemoglobin ABG Oxyhemoglobin Oxyhemoglobin Sodium Potassium 3.0 L Chloride Carbon Dioxide BUN 18 H Creatinine Glucose 174 H POC Glucose 154 H 193 H Lactic Acid Calcium Phosphorus 2.20 L Magnesium AST ALT Alkaline Phosphatase C-Reactive Protein Total Protein Albumin Triglycerides Ur Specific [place] Urine Creatinine Crossmatch 07/05/21 07/05/21 07/05/21 04:38 05:15 12:35 WBC RBC 2.95 L Hgb 7.8 L Hct 23.9 L MCV MCH 27 L RDW 21.0 H Plt Count Lymph % (Auto) [place] % (Auto) Lymph # (Auto) [place] # (Auto) Seg Neutrophils % Seg Neuts % (Manual) Lymphocytes % (Manual) Monocytes % (Manual) Basophils % (Manual) Seg Neutrophils # Seg Neutrophils # Man Lymphocytes # (Manual) Monocytes # (Manual) PT INR APTT Fibrinogen D-Dimer ABG pH POC ABG pCO2 POC ABG pO2 ABG pO2 ABG HCO3 ABG O2 Saturation ABG Base Excess ABG Hemoglobin ABG Oxyhemoglobin Oxyhemoglobin Sodium Potassium Chloride Carbon Dioxide BUN Creatinine Glucose POC Glucose 163 H 121 H Lactic Acid Calcium Phosphorus Magnesium AST ALT Alkaline Phosphatase C-Reactive Protein Total Protein Albumin Triglycerides Ur Specific [place] Urine Creatinine Crossmatch 07/05/21 07/05/21 07/05/21 18:27 21:05 23:11 WBC RBC Hgb Hct MCV MCH RDW Plt Count Lymph % (Auto) [place] % (Auto) Lymph # (Auto) [place] # (Auto) Seg Neutrophils % Seg Neuts % (Manual) Lymphocytes % (Manual) Monocytes % (Manual) Basophils % (Manual) Seg Neutrophils # Seg Neutrophils # Man Lymphocytes # (Manual) Monocytes # (Manual) PT INR APTT Fibrinogen D-Dimer ABG pH POC ABG pCO2 POC ABG pO2 ABG pO2 ABG HCO3 ABG O2 Saturation ABG Base Excess ABG Hemoglobin ABG Oxyhemoglobin Oxyhemoglobin Sodium Potassium Chloride Carbon Dioxide BUN Creatinine Glucose POC Glucose 183 H 170 H 184 H Lactic Acid Calcium Phosphorus Magnesium AST ALT Alkaline Phosphatase C-Reactive Protein Total Protein Albumin Triglycerides Ur Specific [place] Urine Creatinine Crossmatch 07/06/21 07/06/21 07/06/21 04:39 05:13 12:12 WBC RBC Hgb Hct MCV MCH RDW Plt Count Lymph % (Auto) [place] % (Auto) Lymph # (Auto) [place] # (Auto) Seg Neutrophils % Seg Neuts % (Manual) Lymphocytes % (Manual) Monocytes % (Manual) Basophils % (Manual) Seg Neutrophils # Seg Neutrophils # Man Lymphocytes # (Manual) Monocytes # (Manual) PT INR APTT Fibrinogen D-Dimer ABG pH POC ABG pCO2 POC ABG pO2 ABG pO2 ABG HCO3 ABG O2 Saturation ABG Base Excess ABG Hemoglobin ABG Oxyhemoglobin Oxyhemoglobin Sodium Potassium 3.4 L Chloride Carbon Dioxide BUN Creatinine Glucose 180 H POC Glucose 183 H 153 H Lactic Acid Calcium Phosphorus Magnesium AST ALT Alkaline Phosphatase C-Reactive Protein Total Protein Albumin Triglycerides Ur Specific [place] Urine Creatinine Crossmatch 07/06/21 07/06/21 07/07/21 17:30 21:44 00:22 WBC RBC Hgb Hct MCV MCH RDW Plt Count Lymph % (Auto) [place] % (Auto) Lymph # (Auto) [place] # (Auto) Seg Neutrophils % Seg Neuts % (Manual) Lymphocytes % (Manual) Monocytes % (Manual) Basophils % (Manual) Seg Neutrophils # Seg Neutrophils # Man Lymphocytes # (Manual) Monocytes # (Manual) PT INR APTT Fibrinogen D-Dimer ABG pH POC ABG pCO2 POC ABG pO2 ABG pO2 ABG HCO3 ABG O2 Saturation ABG Base Excess ABG Hemoglobin ABG Oxyhemoglobin Oxyhemoglobin Sodium Potassium Chloride Carbon Dioxide BUN Creatinine Glucose POC Glucose 166 H 155 H 188 H Lactic Acid Calcium Phosphorus Magnesium AST ALT Alkaline Phosphatase C-Reactive Protein Total Protein Albumin Triglycerides Ur Specific [place] Urine Creatinine Crossmatch 07/07/21 07/07/21 07/07/21 04:10 05:48 07:39 WBC RBC Hgb Hct MCV MCH RDW Plt Count Lymph % (Auto) [place] % (Auto) Lymph # (Auto) [place] # (Auto) Seg Neutrophils % Seg Neuts % (Manual) Lymphocytes % (Manual) Monocytes % (Manual) Basophils % (Manual) Seg Neutrophils # Seg Neutrophils # Man Lymphocytes # (Manual) Monocytes # (Manual) PT INR APTT Fibrinogen D-Dimer ABG pH POC ABG pCO2 POC ABG pO2 ABG pO2 ABG HCO3 ABG O2 Saturation ABG Base Excess ABG Hemoglobin ABG Oxyhemoglobin Oxyhemoglobin Sodium Potassium 3.1 L Chloride Carbon Dioxide BUN Creatinine Glucose 138 H POC Glucose 141 H 147 H Lactic Acid Calcium Phosphorus 2.40 L Magnesium AST ALT Alkaline Phosphatase C-Reactive Protein Total Protein Albumin Triglycerides Ur Specific [place] Urine Creatinine Crossmatch 07/07/21 07/07/21 07/07/21 11:17 16:06 23:58 WBC RBC Hgb Hct MCV MCH RDW Plt Count Lymph % (Auto) [place] % (Auto) Lymph # (Auto) [place] # (Auto) Seg Neutrophils % Seg Neuts % (Manual) Lymphocytes % (Manual) Monocytes % (Manual) Basophils % (Manual) Seg Neutrophils # Seg Neutrophils # Man Lymphocytes # (Manual) Monocytes # (Manual) PT INR APTT Fibrinogen D-Dimer ABG pH POC ABG pCO2 POC ABG pO2 ABG pO2 ABG HCO3 ABG O2 Saturation ABG Base Excess ABG Hemoglobin ABG Oxyhemoglobin Oxyhemoglobin Sodium Potassium Chloride Carbon Dioxide BUN Creatinine Glucose POC Glucose 161 H 173 H 198 H Lactic Acid Calcium Phosphorus Magnesium AST ALT Alkaline Phosphatase C-Reactive Protein Total Protein Albumin Triglycerides Ur Specific [place] Urine Creatinine Crossmatch 07/08/21 07/08/21 07/08/21 04:20 04:20 06:12 WBC RBC 3.16 L Hgb 8.3 L Hct 25.1 L MCV MCH 26 L RDW 21.0 H Plt Count Lymph % (Auto) [place] % (Auto) Lymph # (Auto) [place] # (Auto) Seg Neutrophils % Seg Neuts % (Manual) Lymphocytes % (Manual) Monocytes % (Manual) Basophils % (Manual) Seg Neutrophils # Seg Neutrophils # Man Lymphocytes # (Manual) Monocytes # (Manual) PT INR APTT Fibrinogen D-Dimer ABG pH POC ABG pCO2 POC ABG pO2 ABG pO2 ABG HCO3 ABG O2 Saturation ABG Base Excess ABG Hemoglobin ABG Oxyhemoglobin Oxyhemoglobin Sodium Potassium Chloride Carbon Dioxide BUN Creatinine Glucose 183 H POC Glucose 189 H Lactic Acid Calcium Phosphorus Magnesium AST ALT Alkaline Phosphatase C-Reactive Protein Total Protein Albumin Triglycerides Ur Specific [place] Urine Creatinine Crossmatch 07/08/21 07/08/2107/08/22 11:33 18:04 21:42 WBC RBC Hgb Hct MCV MCH RDW Plt Count Lymph % (Auto) [place] % (Auto) Lymph # (Auto) [place] # (Auto) Seg Neutrophils % Seg Neuts % (Manual) Lymphocytes % (Manual) Monocytes % (Manual) Basophils % (Manual) Seg Neutrophils # Seg Neutrophils # Man Lymphocytes # (Manual) Monocytes # (Manual) PT INR APTT Fibrinogen D-Dimer ABG pH POC ABG pCO2 POC ABG pO2 ABG pO2 ABG HCO3 ABG O2 Saturation ABG Base Excess ABG Hemoglobin ABG Oxyhemoglobin Oxyhemoglobin Sodium Potassium Chloride Carbon Dioxide BUN Creatinine Glucose POC Glucose 161 H 128 H 160 H Lactic Acid Calcium Phosphorus Magnesium AST ALT Alkaline Phosphatase C-Reactive Protein Total Protein Albumin Triglycerides Ur Specific [place] Urine Creatinine Crossmatch 07/09/21 07/09/21 07/09/21 06:03 06:10 06:10 WBC RBC 2.96 L Hgb 7.8 L Hct 23.5 L MCV MCH 27 L RDW 20.9 H Plt Count Lymph % (Auto) [place] % (Auto) Lymph # (Auto) [place] # (Auto) Seg Neutrophils % Seg Neuts % (Manual) Lymphocytes % (Manual) Monocytes % (Manual) Basophils % (Manual) Seg Neutrophils # Seg Neutrophils # Man Lymphocytes # (Manual) Monocytes # (Manual) PT INR APTT Fibrinogen D-Dimer ABG pH POC ABG pCO2 POC ABG pO2 ABG pO2 ABG HCO3 ABG O2 Saturation ABG Base Excess ABG Hemoglobin ABG Oxyhemoglobin Oxyhemoglobin Sodium Potassium Chloride Carbon Dioxide BUN Creatinine Glucose 168 H POC Glucose 174 H Lactic Acid Calcium 8.2 L Phosphorus Magnesium AST ALT Alkaline Phosphatase C-Reactive Protein Total Protein Albumin Triglycerides Ur Specific [place] Urine Creatinine Crossmatch 07/09/21 07/09/21 07/09/21 11:45 18:45 21:33 WBC RBC Hgb Hct MCV MCH RDW Plt Count Lymph % (Auto) [place] % (Auto) Lymph # (Auto) [place] # (Auto) Seg Neutrophils % Seg Neuts % (Manual) Lymphocytes % (Manual) Monocytes % (Manual) Basophils % (Manual) Seg Neutrophils # Seg Neutrophils # Man Lymphocytes # (Manual) Monocytes # (Manual) PT INR APTT Fibrinogen D-Dimer ABG pH POC ABG pCO2 POC ABG pO2 ABG pO2 ABG HCO3 ABG O2 Saturation ABG Base Excess ABG Hemoglobin ABG Oxyhemoglobin Oxyhemoglobin Sodium Potassium Chloride Carbon Dioxide BUN Creatinine Glucose POC Glucose 148 H 187 H 156 H Lactic Acid Calcium Phosphorus Magnesium AST ALT Alkaline Phosphatase C-Reactive Protein Total Protein Albumin Triglycerides Ur Specific [place] Urine Creatinine Crossmatch 07/10/21 07/10/21 07/10/21 00:01 05:24 11:12 WBC RBC Hgb Hct MCV MCH RDW Plt Count Lymph % (Auto) [place] % (Auto) Lymph # (Auto) [place] # (Auto) Seg Neutrophils % Seg Neuts % (Manual) Lymphocytes % (Manual) Monocytes % (Manual) Basophils % (Manual) Seg Neutrophils # Seg Neutrophils # Man Lymphocytes # (Manual) Monocytes # (Manual) PT INR APTT Fibrinogen D-Dimer ABG pH POC ABG pCO2 POC ABG pO2 ABG pO2 ABG HCO3 ABG O2 Saturation ABG Base Excess ABG Hemoglobin ABG Oxyhemoglobin Oxyhemoglobin Sodium Potassium Chloride Carbon Dioxide BUN Creatinine Glucose POC Glucose 191 H 203 H 174 H Lactic Acid Calcium Phosphorus Magnesium AST ALT Alkaline Phosphatase C-Reactive Protein Total Protein Albumin Triglycerides Ur Specific [place] Urine Creatinine Crossmatch 07/10/21 07/10/21 07/10/21 15:56 20:58 23:54 WBC RBC Hgb Hct MCV MCH RDW Plt Count Lymph % (Auto) [place] % (Auto) Lymph # (Auto) [place] # (Auto) Seg Neutrophils % Seg Neuts % (Manual) Lymphocytes % (Manual) Monocytes % (Manual) Basophils % (Manual) Seg Neutrophils # Seg Neutrophils # Man Lymphocytes # (Manual) Monocytes # (Manual) PT INR APTT Fibrinogen D-Dimer ABG pH POC ABG pCO2 POC ABG pO2 ABG pO2 ABG HCO3 ABG O2 Saturation ABG Base Excess ABG Hemoglobin ABG Oxyhemoglobin Oxyhemoglobin Sodium Potassium Chloride Carbon Dioxide BUN Creatinine Glucose POC Glucose 182 H 165 H 196 H Lactic Acid Calcium Phosphorus Magnesium AST ALT Alkaline Phosphatase C-Reactive Protein Total Protein Albumin Triglycerides Ur Specific [place] Urine Creatinine Crossmatch 07/11/21 07/11/21 07/11/21 04:04 04:04 05:34 WBC RBC 3.50 L Hgb 8.7 L Hct 27.6 L MCV MCH 25 L RDW 20.6 H Plt Count Lymph % (Auto) [place] % (Auto) Lymph # (Auto) [place] # (Auto) Seg Neutrophils % Seg Neuts % (Manual) Lymphocytes % (Manual) Monocytes % (Manual) Basophils % (Manual) 2.0 H Seg Neutrophils # Seg Neutrophils # Man Lymphocytes # (Manual) 0.8 L Monocytes # (Manual) PT INR APTT Fibrinogen D-Dimer ABG pH POC ABG pCO2 POC ABG pO2 ABG pO2 ABG HCO3 ABG O2 Saturation ABG Base Excess ABG Hemoglobin ABG Oxyhemoglobin Oxyhemoglobin Sodium Potassium 3.3 L Chloride Carbon Dioxide BUN Creatinine Glucose 199 H POC Glucose 191 H Lactic Acid Calcium Phosphorus Magnesium AST ALT Alkaline Phosphatase C-Reactive Protein Total Protein Albumin Triglycerides Ur Specific [place] Urine Creatinine Crossmatch 07/11/21 07/11/21 07/11/21 11:49 15:57 21:33 WBC RBC Hgb Hct MCV MCH RDW Plt Count Lymph % (Auto) [place] % (Auto) Lymph # (Auto) [place] # (Auto) Seg Neutrophils % Seg Neuts % (Manual) Lymphocytes % (Manual) Monocytes % (Manual) Basophils % (Manual) Seg Neutrophils # Seg Neutrophils # Man Lymphocytes # (Manual) Monocytes # (Manual) PT INR APTT Fibrinogen D-Dimer ABG pH POC ABG pCO2 POC ABG pO2 ABG pO2 ABG HCO3 ABG O2 Saturation ABG Base Excess ABG Hemoglobin ABG Oxyhemoglobin Oxyhemoglobin Sodium Potassium Chloride Carbon Dioxide BUN Creatinine Glucose POC Glucose 195 H 207 H 192 H Lactic Acid Calcium Phosphorus Magnesium AST ALT Alkaline Phosphatase C-Reactive Protein Total Protein Albumin Triglycerides Ur Specific [place] Urine Creatinine Crossmatch 07/12/21 07/12/21 07/12/21 00:04 05:54 11:53 WBC RBC Hgb Hct MCV MCH RDW Plt Count Lymph % (Auto) [place] % (Auto) Lymph # (Auto) [place] # (Auto) Seg Neutrophils % Seg Neuts % (Manual) Lymphocytes % (Manual) Monocytes % (Manual) Basophils % (Manual) Seg Neutrophils # Seg Neutrophils # Man Lymphocytes # (Manual) Monocytes # (Manual) PT INR APTT Fibrinogen D-Dimer ABG pH POC ABG pCO2 POC ABG pO2 ABG pO2 ABG HCO3 ABG O2 Saturation ABG Base Excess ABG Hemoglobin ABG Oxyhemoglobin Oxyhemoglobin Sodium Potassium Chloride Carbon Dioxide BUN Creatinine Glucose POC Glucose 189 H 220 H 209 H Lactic Acid Calcium Phosphorus Magnesium AST ALT Alkaline Phosphatase C-Reactive Protein Total Protein Albumin Triglycerides Ur Specific [place] Urine Creatinine Crossmatch 07/12/21 07/13/21 07/13/21 23:48 05:55 11:36 WBC RBC Hgb Hct MCV MCH RDW Plt Count Lymph % (Auto) [place] % (Auto) Lymph # (Auto) [place] # (Auto) Seg Neutrophils % Seg Neuts % (Manual) Lymphocytes % (Manual) Monocytes % (Manual) Basophils % (Manual) Seg Neutrophils # Seg Neutrophils # Man Lymphocytes # (Manual) Monocytes # (Manual) PT INR APTT Fibrinogen D-Dimer ABG pH POC ABG pCO2 POC ABG pO2 ABG pO2 ABG HCO3 ABG O2 Saturation ABG Base Excess ABG Hemoglobin ABG Oxyhemoglobin Oxyhemoglobin Sodium Potassium Chloride Carbon Dioxide BUN Creatinine Glucose POC Glucose 246 H 158 H 156 H Lactic Acid Calcium Phosphorus Magnesium AST ALT Alkaline Phosphatase C-Reactive Protein Total Protein Albumin Triglycerides Ur Specific [place] Urine Creatinine Crossmatch 07/13/21 07/13/21 07/14/21 17:28 23:43 05:52 WBC RBC Hgb Hct MCV MCH RDW Plt Count Lymph % (Auto) [place] % (Auto) Lymph # (Auto) [place] # (Auto) Seg Neutrophils % Seg Neuts % (Manual) Lymphocytes % (Manual) Monocytes % (Manual) Basophils % (Manual) Seg Neutrophils # Seg Neutrophils # Man Lymphocytes # (Manual) Monocytes # (Manual) PT INR APTT Fibrinogen D-Dimer ABG pH POC ABG pCO2 POC ABG pO2 ABG pO2 ABG HCO3 ABG O2 Saturation ABG Base Excess ABG Hemoglobin ABG Oxyhemoglobin Oxyhemoglobin Sodium Potassium Chloride Carbon Dioxide BUN Creatinine Glucose POC Glucose 212 H 210 H 171 H Lactic Acid Calcium Phosphorus Magnesium AST ALT Alkaline Phosphatase C-Reactive Protein Total Protein Albumin Triglycerides Ur Specific [place] Urine Creatinine Crossmatch 07/14/21 07/14/21 07/14/21 11:59 16:41 23:42 WBC RBC Hgb Hct MCV MCH RDW Plt Count Lymph % (Auto) [place] % (Auto) Lymph # (Auto) [place] # (Auto) Seg Neutrophils % Seg Neuts % (Manual) Lymphocytes % (Manual) Monocytes % (Manual) Basophils % (Manual) Seg Neutrophils # Seg Neutrophils # Man Lymphocytes # (Manual) Monocytes # (Manual) PT INR APTT Fibrinogen D-Dimer ABG pH POC ABG pCO2 POC ABG pO2 ABG pO2 ABG HCO3 ABG O2 Saturation ABG Base Excess ABG Hemoglobin ABG Oxyhemoglobin Oxyhemoglobin Sodium Potassium Chloride Carbon Dioxide BUN Creatinine Glucose POC Glucose 151 H 153 H 171 H Lactic Acid Calcium Phosphorus Magnesium AST ALT Alkaline Phosphatase C-Reactive Protein Total Protein Albumin Triglycerides Ur Specific [place] Urine Creatinine Crossmatch 07/15/21 07/15/21 05:40 12:49 WBC RBC Hgb Hct MCV MCH RDW Plt Count Lymph % (Auto) [place] % (Auto) Lymph # (Auto) [place] # (Auto) Seg Neutrophils % Seg Neuts % (Manual) Lymphocytes % (Manual) Monocytes % (Manual) Basophils % (Manual) Seg Neutrophils # Seg Neutrophils # Man Lymphocytes # (Manual) Monocytes # (Manual) PT INR APTT Fibrinogen D-Dimer ABG pH POC ABG pCO2 POC ABG pO2 ABG pO2 ABG HCO3 ABG O2 Saturation ABG Base Excess ABG Hemoglobin ABG Oxyhemoglobin Oxyhemoglobin Sodium Potassium Chloride Carbon Dioxide BUN Creatinine Glucose POC Glucose 224 H 219 H Lactic Acid Calcium Phosphorus Magnesium AST ALT Alkaline Phosphatase C-Reactive Protein Total Protein Albumin Triglycerides Ur Specific [place] Urine Creatinine Crossmatch
[2021-07-15] MEDS: traZODone 50 MG TAB PO SCH (20:59)
[2021-07-15] MEDS: INSULIN GLARGINE 100 UNITS/ML SUB-Q SCH (20:59)
[2021-07-15] MEDS: MELATONIN 5 MG TAB PO SCH (20:59)
[2021-07-15] MEDS: ENOXAPARIN 40 MG/0.4 ML INJ SUB-Q SCH (20:59)
[2021-07-15] MEDS: SENNOSIDES ORAL LIQD 8.8 MG/5 ML ORAL LIQD PO SCH (21:00)
[2021-07-16] MEDS: INSULIN LISPRO 100 UNIT/ML SUB-Q SCH ×3 (00:22→12:38)
[2021-07-16] MEDS: HYDROcodone/ACETAMINOPHEN 5-325 MG TAB PO PRN (02:43)
[2021-07-16] MEDS: hydrALAZINE 100 MG TAB FEEDTUBE SCH (05:28)
[2021-07-16] MEDS: HYDROmorphone 1 MG/1 ML INJ IV PRN ×2 (06:57→12:44)
[2021-07-16] MEDS: MAGIC MOUTHWASH 30ML PO SCH (09:13)
[2021-07-16] MEDS: GABAPENTIN 100 MG CAP PO SCH (09:13)
[2021-07-16] MEDS: amLODIPine 5 MG TAB PO SCH (09:27)
[2021-07-16] MEDS: FAMOTIDINE 20 MG TAB FEEDTUBE SCH (09:27)
[2021-07-16 09:41] LABS: Hematocrit 26.7 % (30.3-42.9); Hemoglobin 8.4 gm/dl (10.1-14.3); Mean Corpuscular HGB Conc 32 % (30-34); Mean Corpuscular Volume 76 fl (79-97); Platelet Count 472 K/mm3 (140-440); Red Blood Count 3.52 M/mm3 (3.65-5.03); Red Cell Distribution Width 21.8 % (13.2-15.2)
[2021-07-16 09:58] LABS: Blood Urea Nitrogen 16 mg/dL (7-17); Calcium 9.2 mg/dL (8.4-10.2); Hemolysis Index 1
[2021-07-16 10:03] LABS: BUN/Creatinine Ratio 32
--- NOTE | 2021-07-16 10:34 | Progress Note ---
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 07/16/21: No new pulm recs. 07/15/21: Hopeful transfer soon. 07/14/21: No new recs. 07/13/21: no new recs. 07/12/21: Stable pulm [facility] for transport. Awaiting [facility] arrival for speech to work with patient. Continue PT/OT. Needs placement. 07/11/21: clinically stable for transport when bed is available at facility. Follow up speech recs. Reviewed neurology note, they state MRI cancelled. Appears this was done by surgery so they can discuss with them about why. Will continue to follow. 07/10/21: Continue current care. Trach changed out. Speech following. Awaiting placement. 07/09/21: Transfer to IMCU. PT/OT. Speech to see again now with smaller caliber trach. Placement. 07/08/21: Continue ICU. Once trach downsized may consider transition to step down if ICU bed is needed. Hopeful placement soon. PT/OT. 07/05/21: Continue ICU/IMCU status. Patient is stable for speech as well as PT/OT. Please reconsult them. [facility] has been denied for LTACH so will attempt to get patient into [facility] facility. Will speak with surgery about possibly downsizing trach to 8. Speech has no equipment to fit 10. Do not feel comfortable doing it myself or asking RT to change out to smaller trach. 07/04/21: Will keep in ICU/IMCU for now. Treat pain in back with [place] and discontinue Tylenol. Follow up with CM on placement. 07/03/21: Continue current level of care. CM working on placement. 07/02/21: ABG now. Patient did have low grade temp earlier today and still has a white count despite being off steroids. It is trending down. Reviewed ID note and they did mention of persistent consider ct of neck. May need to do this. If done, please scan head as well. Will continue to follow. Spoke with RT about obtaining ABG. 07/01/21: Continue T-piece. Follow up speech recs. Follow up electrolytes. PT/OT. Stable for transfer when bed available 06/30/21: Aggressive replacement of electrolytes. Will repeat chemistry tonight around 8. please call for orders as we would like to keep her K at 4 and Mag at 2. Chemistry in the am. Stable for transfer to telemetry floor. 06/29/21: Speech did see but patient had decreased voice quality and increased wob so aborted. Will ask them to assess again on Thursday. Chest tube out and ordered follow up CXR. Stable for transfer but ok with continuing monitoring in ICU. If bed needed could go to step down. 06/28/21: monitor drainage in ICU for 24 more hours. Can likely come out tomorrow. Continue in ICU for now. Once chest tube out, no objection to transfer. 06/27/21: Will place chest tube to water seal. Instructed staff if any change in respiratory status, place back on suction and obtain CXR. Otherwise will leave off. Continue T-piece as tolerated. Rehab/penitentiary/LTACH appropriate. STable for transfer if and when bed becomes available. 06/26/21: T-piece today. If off the vent, agree with surgery and removal of chest tube as subq emphysema is improving as well. PT has seen suggested LTACH, however if we are able to wean she may need penitentiary/rehab. Prognosis continues to improve. 06/25/21: Continue PSV as tolerated. Hopeful T-piece in the next 24-48 hours. Will drop steroids down further on . Can switch to daily and even change to oral. PT/OT consult, and follow up recs. May need LTACH vs rehab vs both. Continue to follow. 06/24/21: Daily PSV trials. Maybe ready for T-piece sson. Continue to wean steroids to off. IMS changed to 40q12 which is fine. Continue chest tube until off vent. Still on list for [facility] but will discuss with CM about checking into LTACH as patient will need rehab. PT/OT consult. 06/21/21: Continue current level of sedation. Chest tube does not have air leak but there is clear evidence of a PTX on right. Stripped tube at bedside and will repeat CXR in the morning. Hold on weaning sedation for now and hold on PSV trials. May need second chest tube vs vats if PTX worsens or does not resolve. Patient still on list for [facility], hopeful they will have a bed soon. Drop steroids to 40q8 starting Thursday. Monitor renal function, likely will improve. Needs more free water. Prognosis still remains guarded. 06/20/21: Restart some sedation. At least pain and maybe diprovan. Would like to wake patient up at some point and attempt some PSV trials. Labs are off this am. Large bump in white count but no fever, also no diff drawn. Could be error vs steroid related but this is in just 24 hours. Will repeat tomorrow. If spikes a temp neves culture as well. Small bump in Cr but still in normal range. Will watch. Now that peg in place, tube feeds and free water flushes. Still on list for [facility]. Patient has been steroids greater than 7 days so will have to wean. Can drop to 60q8 starting tomorrow. Prognosis still remains guarded. 06/19/21: surgery to attempt trach and peg today. Still will ask to keep on transfer list for [facility] as her other issues still need to be addressed. If able to place peg, can stop clinimix, give free water and start tube feeds. Prognosis remains guarded. pH better with drop in tidal volume. 06/18/21: [facility] has agreed to accept but no ICU beds available at this time. Spoke with Dr. Vasquez yesterday and Dr. Patricia spoke with ENT there. Spoke with RT this am and patient did have a leak when cuff let down and her tidal volumes dropped to below 100. Patient remains on abx and steriods. Will consider lightening sedation tomorrow and seeing how patient does if cuff leak persists. Dropped tidal volumes to 450. Continue PPN for now. 06/17/21: spoke with surgery and they feel transfer is reasonable. I have reached out to [facility] and [facility] has spoken with someone from [facility]. Await to hear back from them. Continue supportive measures and adequate sedation for pain control. No PSV trials as of yet. Blood sugar control, increase lantus. Most likely secondary to steroids. Continue abx therapy. Guarded prognosis. 06/16/21: Renal function improved with fluids. IMS to give more fluids (LR) today which I agree with. FeNa is =0.7. Should be fluid responsive. Continue clinimix. Needs long acting insulin. Agree with lantus. Asked nursing to increase sedation now that we know that patient's mental status is stable. Picc today. Air leak test vs Neck CT on tomorrow. 06/15/21: Hopeful with worsening renal function ( likely from code on yesterday) that sedatives are just lingering from that. Still making good urine but output has fallen off. Will send urine sodium and urine cr to check Fena. Most likely this is prerenal. ordered renal ultrasound as well. Continue abx and steroids. Will start clinimix today. This should help with the free water piece. Will give another liter bolus of LR right now. Keep sedation off for now. Guarded prognosis. 06/14/21: Will discuss with surgery future plans. They have ordered steroids to help with inflammation and abx continue. All others appears stable and no acute evidence of bleeding at this time. Follow up surgery recs if any new ones. Guarded prognosis. 06/13/21: Patient to back to OR today. BLood transfusion. Will send DIC panel and may need to given cryo if over 6 units of PRBC's given. Patient will likely need trach and peg as we need to address nutrition. Chest tube placed, large bore now. Patient now with right sided effusion. Hemothorax???. Will continue to monitor output. Needs picc line as femoral should come out soon. Continue pressors. Continue sedation for pain control and comfort. Guarded prognosis. Surgery comfortable with neck and current situation so they have not request transfer. 1. Placed right femoral central line. pressors can run through this. 2. Repeat chemistry stat given bicarb of 8 and blood sugar of greater than 600. Ordering FSBS now. Earlier bicarb was 25. If accurate will need bicarb drip and vasopressin but not sure as pH on blood gas was normal done around the same time. 3. Coagulopathy is improving. INR down to 4.55 and PTT and pT improving. Will continue to give FFP. Ordered more vitamin K. H/H is stable but patient is oozing from neck and mouth. 4. Vasopressor for blood pressure. Need to keep map 65 and greater 5. Lujan is needed for accurate I/O 6. Surgery called by IMS about current CT situation. They state they will reassess in the am. I have reviewed the images myself. If I can position the patient safely without compromising the airway after adequate sedation, may consider placing chest tube now as INR is better and FFP is hanging. Patient is morbidly obese so shits could move the ET tube so if not safe, will wait until surgery comes in the morning. 7. Would not attempt to pass OG or NG tube given current situation in neck 8. Will discuss with surgery tomorrow but I feel this patient should be transferred to a tertiary care facility with ENT as we do not have that service here. CCT 31 minutes. Subjective Date of service: 07/16/21 Interval history: No acute events. Objective Vital Signs - 12hr 07/15/21 07/15/21 07/15/21 23:00 23:47 23:48 Temperature 99.6 F Pulse Rate 104 H 102 H Respiratory 22 21 Rate Blood Pressure 128/70 128/70 O2 Sat by Pulse 99 98 Oximetry O2 Sat by Pulse Oximetry [ Assessment] 07/16/21 07/16/21 07/16/21 00:00 01:00 01:21 Temperature Pulse Rate 103 H 101 H 99 H Respiratory 22 24 Rate Blood Pressure 123/68 138/79 O2 Sat by Pulse 97 97 Oximetry O2 Sat by Pulse Oximetry [ Assessment] 07/16/21 07/16/21 07/16/21 02:00 03:00 04:00 Temperature Pulse Rate 106 H 97 H 96 H Respiratory 22 27 H 15 Rate Blood Pressure 121/47 112/62 110/72 O2 Sat by Pulse 91 98 94 Oximetry O2 Sat by Pulse Oximetry [ Assessment] 07/16/21 07/16/21 07/16/21 04:30 05:00 05:11 Temperature Pulse Rate 97 H 96 H Respiratory 22 Rate Blood Pressure 110/72 O2 Sat by Pulse 98 Oximetry O2 Sat by Pulse 99 Oximetry [ Assessment] 07/16/21 07/16/21 07/16/21 05:28 06:00 07:00 Temperature 100.2 F H Pulse Rate 95 H 95 H Respiratory 22 20 Rate Blood Pressure 122/70 132/70 O2 Sat by Pulse 97 97 Oximetry O2 Sat by Pulse Oximetry [ Assessment] 07/16/21 07/16/21 07/16/21 08:00 09:00 09:27 Temperature 98.8 F Pulse Rate 96 H 94 H 97 H Respiratory 18 18 Rate Blood Pressure 122/62 122/62 O2 Sat by Pulse 97 96 Oximetry O2 Sat by Pulse Oximetry [ Assessment] 07/16/21 10:00 Temperature Pulse Rate 97 H Respiratory 13 Rate Blood Pressure 133/72 O2 Sat by Pulse 97 Oximetry O2 Sat by Pulse Oximetry [ Assessment] Constitutional: alert, other (on vent trach in place) Eyes: non-icteric ENT: oropharynx moist Neck: other (trach in place) Ascultation: Bilateral: clear Percussion: Bilateral: not dull Cardiovascular: regular rate and rhythm Gastrointestinal: normoactive bowel sounds Integumentary: normal Extremities: no edema, other (subq emphysema) Neurologic: normal mental status CBC and BMP: 07/16/21 09:19 07/16/21 09:19 ABG, PT/INR, D-dimer: ABG ABG pH 7.448 pH Units (7.350-7.450) 07/04/21 01:44 POC ABG pCO2 25.6 mmHg (32.0-48.0) L 06/13/21 04:31 ABG pCO2 39.5 mm Hg 07/04/21 01:44 POC ABG pO2 138.8 mmHg (83-108) H 06/13/21 04:31 ABG pO2 107.7 mm Hg (80.0-90.0) H 07/04/21 01:44 POC ABG HCO3 21.4 06/13/21 04:31 ABG O2 Saturation 98.0 % (95.0-99.0) 07/04/21 01:44 PT/INR, D-dimer PT 18.3 Sec. (12.2-14.9) H 06/20/21 04:33 INR 1.37 (0.87-1.13) H 06/20/21 04:33 D-Dimer 1244.63 ng/mlDDU (0-234) H 06/13/21 Unknown Abnormal lab findings: Abnormal Labs 06/11/21 06/11/21 06/11/21 15:23 15:23 19:20 WBC 12.0 H RBC Hgb Hct MCV 72 L MCH 21 L RDW 17.5 H Plt Count Lymph % (Auto) 12.9 L [place] % (Auto) 8.6 H Lymph # (Auto) [place] # (Auto) 1.0 H Seg Neutrophils % 77.4 H Seg Neuts % (Manual) Lymphocytes % (Manual) Monocytes % (Manual) Basophils % (Manual) Seg Neutrophils # 9.3 H Seg Neutrophils # Man Lymphocytes # (Manual) Monocytes # (Manual) PT INR APTT Fibrinogen D-Dimer ABG pH POC ABG pCO2 POC ABG pO2 ABG pO2 ABG HCO3 ABG O2 Saturation ABG Base Excess ABG Hemoglobin ABG Oxyhemoglobin Oxyhemoglobin Sodium Potassium Chloride Carbon Dioxide BUN Creatinine Glucose 144 H POC Glucose Lactic Acid Calcium Phosphorus Magnesium AST ALT Alkaline Phosphatase C-Reactive Protein Total Protein Albumin Triglycerides Ur Specific [place] Urine Creatinine Crossmatch See Detail 06/11/21 06/11/21 06/11/21 19:29 19:29 23:21 WBC 15.8 H RBC Hgb 9.4 L Hct MCV 72 L MCH 22 L RDW 17.4 H Plt Count Lymph % (Auto) 9.2 L [place] % (Auto) Lymph # (Auto) [place] # (Auto) Seg Neutrophils % 89.0 H Seg Neuts % (Manual) Lymphocytes % (Manual) Monocytes % (Manual) Basophils % (Manual) Seg Neutrophils # 14.0 H Seg Neutrophils # Man Lymphocytes # (Manual) Monocytes # (Manual) PT 72.9 H INR 8.18 H* APTT 71.7 H* Fibrinogen D-Dimer ABG pH POC ABG pCO2 POC ABG pO2 ABG pO2 ABG HCO3 ABG O2 Saturation ABG Base Excess ABG Hemoglobin ABG Oxyhemoglobin Oxyhemoglobin Sodium 149 H D Potassium Chloride 124.3 H Carbon Dioxide 8 L* D BUN Creatinine 0.3 L Glucose 628 H* POC Glucose Lactic Acid Calcium 2.4 L* D Phosphorus Magnesium AST ALT < 5 L Alkaline Phosphatase 19 L C-Reactive Protein Total Protein 1.6 L D Albumin 0.8 L Triglycerides Ur Specific [place] Urine Creatinine Crossmatch 06/11/21 06/11/21 06/11/21 23:21 23:22 23:42 WBC RBC Hgb Hct MCV MCH 27 L RDW 22.2 H Plt Count 131 L Lymph % (Auto) [place] % (Auto) Lymph # (Auto) [place] # (Auto) Seg Neutrophils % Seg Neuts % (Manual) Lymphocytes % (Manual) Monocytes % (Manual) Basophils % (Manual) Seg Neutrophils # Seg Neutrophils # Man Lymphocytes # (Manual) Monocytes # (Manual) PT 46.3 H INR 4.55 H APTT 54.8 H Fibrinogen D-Dimer ABG pH POC ABG pCO2 POC ABG pO2 325.9 H ABG pO2 ABG HCO3 ABG O2 Saturation ABG Base Excess ABG Hemoglobin 8.0 L ABG Oxyhemoglobin 99.0 H Oxyhemoglobin Sodium Potassium Chloride Carbon Dioxide BUN Creatinine Glucose POC Glucose Lactic Acid Calcium Phosphorus Magnesium AST ALT Alkaline Phosphatase C-Reactive Protein Total Protein Albumin Triglycerides Ur Specific [place] Urine Creatinine Crossmatch 06/12/21 06/12/21 06/12/21 01:45 01:45 01:45 WBC 21.6 H RBC 3.04 L Hgb 6.7 L D Hct 22.4 L D MCV 74 L MCH 22 L RDW 18.9 H Plt Count Lymph % (Auto) [place] % (Auto) Lymph # (Auto) [place] # (Auto) Seg Neutrophils % Seg Neuts % (Manual) 76.0 H Lymphocytes % (Manual) 2.0 L Monocytes % (Manual) 8.0 H Basophils % (Manual) Seg Neutrophils # Seg Neutrophils # Man 16.4 H Lymphocytes # (Manual) 0.4 L Monocytes # (Manual) 1.7 H PT 25.4 H INR 2.10 H APTT Fibrinogen D-Dimer ABG pH POC ABG pCO2 POC ABG pO2 ABG pO2 ABG HCO3 ABG O2 Saturation ABG Base Excess ABG Hemoglobin ABG Oxyhemoglobin Oxyhemoglobin Sodium Potassium 5.6 H D Chloride Carbon Dioxide 20 L D BUN Creatinine Glucose 368 H POC Glucose Lactic Acid Calcium 7.1 L D Phosphorus Magnesium AST ALT Alkaline Phosphatase C-Reactive Protein Total Protein 5.3 L D Albumin 3.1 L Triglycerides Ur Specific [place] Urine Creatinine Crossmatch 06/12/21 06/12/21 06/12/21 02:05 04:41 11:05 WBC 14.6 H RBC 3.52 L Hgb 8.5 L Hct 27.7 L MCV MCH 24 L RDW 20.9 H Plt Count Lymph % (Auto) [place] % (Auto) Lymph # (Auto) [place] # (Auto) Seg Neutrophils % Seg Neuts % (Manual) Lymphocytes % (Manual) Monocytes % (Manual) Basophils % (Manual) Seg Neutrophils # Seg Neutrophils # Man Lymphocytes # (Manual) Monocytes # (Manual) PT INR APTT Fibrinogen D-Dimer ABG pH POC ABG pCO2 POC ABG pO2 224.6 H ABG pO2 ABG HCO3 ABG O2 Saturation ABG Base Excess ABG Hemoglobin 7.3 L ABG Oxyhemoglobin 98.7 H Oxyhemoglobin Sodium Potassium Chloride Carbon Dioxide BUN Creatinine Glucose POC Glucose 308 H Lactic Acid Calcium Phosphorus Magnesium AST ALT Alkaline Phosphatase C-Reactive Protein Total Protein Albumin Triglycerides Ur Specific [place] Urine Creatinine Crossmatch 06/12/21 06/12/21 06/12/21 11:05 11:05 12:18 WBC RBC Hgb Hct MCV MCH RDW Plt Count Lymph % (Auto) [place] % (Auto) Lymph # (Auto) [place] # (Auto) Seg Neutrophils % Seg Neuts % (Manual) Lymphocytes % (Manual) Monocytes % (Manual) Basophils % (Manual) Seg Neutrophils # Seg Neutrophils # Man Lymphocytes # (Manual) Monocytes # (Manual) PT 16.8 H INR 1.23 H APTT Fibrinogen D-Dimer ABG pH POC ABG pCO2 POC ABG pO2 ABG pO2 ABG HCO3 ABG O2 Saturation ABG Base Excess ABG Hemoglobin ABG Oxyhemoglobin Oxyhemoglobin Sodium Potassium Chloride Carbon Dioxide BUN 24 H Creatinine Glucose 324 H POC Glucose 281 H Lactic Acid Calcium 7.5 L Phosphorus Magnesium AST 70 H ALT 57 H Alkaline Phosphatase C-Reactive Protein Total Protein 6.0 L Albumin 3.6 L Triglycerides Ur Specific [place] Urine Creatinine Crossmatch 06/12/21 06/12/21 06/12/21 17:00 17:00 17:00 WBC RBC Hgb 7.5 L Hct 24.0 L MCV MCH RDW Plt Count Lymph % (Auto) [place] % (Auto) Lymph # (Auto) [place] # (Auto) Seg Neutrophils % Seg Neuts % (Manual) Lymphocytes % (Manual) Monocytes % (Manual) Basophils % (Manual) Seg Neutrophils # Seg Neutrophils # Man Lymphocytes # (Manual) Monocytes # (Manual) PT 16.0 H INR 1.16 H APTT Fibrinogen D-Dimer ABG pH POC ABG pCO2 POC ABG pO2 ABG pO2 ABG HCO3 ABG O2 Saturation ABG Base Excess ABG Hemoglobin ABG Oxyhemoglobin Oxyhemoglobin Sodium Potassium Chloride Carbon Dioxide BUN Creatinine Glucose POC Glucose Lactic Acid Calcium Phosphorus Magnesium AST ALT Alkaline Phosphatase C-Reactive Protein Total Protein Albumin Triglycerides Ur Specific [place] 1.035 H Urine Creatinine Crossmatch 06/12/21 06/12/21 06/12/21 18:06 23:00 23:05 WBC RBC Hgb 7.6 L Hct 23.5 L MCV MCH RDW Plt Count Lymph % (Auto) [place] % (Auto) Lymph # (Auto) [place] # (Auto) Seg Neutrophils % Seg Neuts % (Manual) Lymphocytes % (Manual) Monocytes % (Manual) Basophils % (Manual) Seg Neutrophils # Seg Neutrophils # Man Lymphocytes # (Manual) Monocytes # (Manual) PT INR APTT Fibrinogen D-Dimer ABG pH POC ABG pCO2 POC ABG pO2 ABG pO2 ABG HCO3 ABG O2 Saturation ABG Base Excess ABG Hemoglobin ABG Oxyhemoglobin Oxyhemoglobin Sodium Potassium Chloride Carbon Dioxide BUN Creatinine Glucose POC Glucose 257 H 300 H Lactic Acid Calcium Phosphorus Magnesium AST ALT Alkaline Phosphatase C-Reactive Protein Total Protein Albumin Triglycerides Ur Specific [place] Urine Creatinine Crossmatch 06/13/21 06/13/21 06/13/21 04:31 05:19 07:30 WBC RBC Hgb 6.8 L Hct 21.7 L MCV MCH RDW Plt Count Lymph % (Auto) [place] % (Auto) Lymph # (Auto) [place] # (Auto) Seg Neutrophils % Seg Neuts % (Manual) Lymphocytes % (Manual) Monocytes % (Manual) Basophils % (Manual) Seg Neutrophils # Seg Neutrophils # Man Lymphocytes # (Manual) Monocytes # (Manual) PT INR APTT Fibrinogen D-Dimer ABG pH 7.541 H POC ABG pCO2 25.6 L POC ABG pO2 138.8 H ABG pO2 ABG HCO3 ABG O2 Saturation ABG Base Excess ABG Hemoglobin 7.3 L ABG Oxyhemoglobin 98.1 H Oxyhemoglobin Sodium Potassium Chloride Carbon Dioxide BUN Creatinine Glucose POC Glucose 286 H Lactic Acid Calcium Phosphorus Magnesium AST ALT Alkaline Phosphatase C-Reactive Protein Total Protein Albumin Triglycerides Ur Specific [place] Urine Creatinine Crossmatch 06/13/21 06/13/21 06/13/21 07:30 12:04 14:50 WBC RBC Hgb Hct MCV MCH RDW Plt Count Lymph % (Auto) [place] % (Auto) Lymph # (Auto) [place] # (Auto) Seg Neutrophils % Seg Neuts % (Manual) Lymphocytes % (Manual) Monocytes % (Manual) Basophils % (Manual) Seg Neutrophils # Seg Neutrophils # Man Lymphocytes # (Manual) Monocytes # (Manual) PT INR APTT Fibrinogen D-Dimer ABG pH 7.039 L* 7.182 L* POC ABG pCO2 POC ABG pO2 ABG pO2 63.1 L ABG HCO3 17.4 L ABG O2 Saturation 73.4 L ABG Base Excess -12.6 L -7.1 L ABG Hemoglobin 7.7 L 6.9 L ABG Oxyhemoglobin Oxyhemoglobin 71.8 L 93.5 L Sodium Potassium Chloride 108.9 H Carbon Dioxide BUN 28 H Creatinine Glucose 293 H POC Glucose Lactic Acid Calcium 7.2 L Phosphorus Magnesium AST 106 H ALT 92 H Alkaline Phosphatase C-Reactive Protein Total Protein 5.6 L Albumin 3.3 L Triglycerides Ur Specific [place] Urine Creatinine Crossmatch 06/13/21 06/13/21 06/13/21 14:54 15:45 17:34 WBC RBC Hgb Hct MCV MCH RDW Plt Count Lymph % (Auto) [place] % (Auto) Lymph # (Auto) [place] # (Auto) Seg Neutrophils % Seg Neuts % (Manual) Lymphocytes % (Manual) Monocytes % (Manual) Basophils % (Manual) Seg Neutrophils # Seg Neutrophils # Man Lymphocytes # (Manual) Monocytes # (Manual) PT INR APTT Fibrinogen D-Dimer ABG pH POC ABG pCO2 POC ABG pO2 ABG pO2 178.4 H ABG HCO3 ABG O2 Saturation 99.1 H ABG Base Excess ABG Hemoglobin 8.0 L ABG Oxyhemoglobin Oxyhemoglobin Sodium Potassium Chloride 107.3 H Carbon Dioxide 19 L BUN 33 H Creatinine 1.5 H Glucose 379 H POC Glucose Lactic Acid 5.30 H* Calcium 6.8 L Phosphorus Magnesium AST ALT Alkaline Phosphatase C-Reactive Protein Total Protein Albumin Triglycerides Ur Specific [place] Urine Creatinine Crossmatch 06/13/21 06/13/21 06/13/21 17:40 23:29 Unknown WBC 22.5 H RBC 3.16 L Hgb 8.0 L Hct 26.0 L MCV MCH 26 L RDW 21.4 H Plt Count Lymph % (Auto) [place] % (Auto) Lymph # (Auto) [place] # (Auto) Seg Neutrophils % Seg Neuts % (Manual) 88.0 H Lymphocytes % (Manual) 4.0 L Monocytes % (Manual) Basophils % (Manual) Seg Neutrophils # Seg Neutrophils # Man 19.8 H Lymphocytes # (Manual) 0.9 L Monocytes # (Manual) 1.4 H PT INR APTT Fibrinogen D-Dimer ABG pH POC ABG pCO2 POC ABG pO2 ABG pO2 ABG HCO3 ABG O2 Saturation ABG Base Excess ABG Hemoglobin ABG Oxyhemoglobin Oxyhemoglobin Sodium Potassium Chloride Carbon Dioxide BUN Creatinine Glucose POC Glucose 294 H 288 H Lactic Acid Calcium Phosphorus Magnesium AST ALT Alkaline Phosphatase C-Reactive Protein Total Protein Albumin Triglycerides Ur Specific [place] Urine Creatinine Crossmatch 06/13/21 06/14/21 06/14/21 Unknown 05:39 06:15 WBC RBC 2.93 L Hgb 7.2 L Hct 23.2 L MCV MCH 25 L RDW 21.2 H Plt Count Lymph % (Auto) [place] % (Auto) Lymph # (Auto) [place] # (Auto) Seg Neutrophils % Seg Neuts % (Manual) Lymphocytes % (Manual) Monocytes % (Manual) Basophils % (Manual) Seg Neutrophils # Seg Neutrophils # Man Lymphocytes # (Manual) Monocytes # (Manual) PT 17.6 H INR 1.31 H APTT Fibrinogen 546 H D-Dimer 1244.63 H ABG pH POC ABG pCO2 POC ABG pO2 ABG pO2 ABG HCO3 ABG O2 Saturation ABG Base Excess ABG Hemoglobin ABG Oxyhemoglobin Oxyhemoglobin Sodium Potassium Chloride Carbon Dioxide BUN Creatinine Glucose POC Glucose 246 H Lactic Acid Calcium Phosphorus Magnesium AST ALT Alkaline Phosphatase C-Reactive Protein Total Protein Albumin Triglycerides Ur Specific [place] Urine Creatinine Crossmatch 06/14/21 06/14/21 06/14/21 06:15 06:15 09:13 WBC RBC Hgb Hct MCV MCH RDW Plt Count Lymph % (Auto) [place] % (Auto) Lymph # (Auto) [place] # (Auto) Seg Neutrophils % Seg Neuts % (Manual) Lymphocytes % (Manual) Monocytes % (Manual) Basophils % (Manual) Seg Neutrophils # Seg Neutrophils # Man Lymphocytes # (Manual) Monocytes # (Manual) PT INR APTT Fibrinogen D-Dimer ABG pH POC ABG pCO2 POC ABG pO2 ABG pO2 183.0 H ABG HCO3 ABG O2 Saturation 99.2 H ABG Base Excess ABG Hemoglobin 6.6 L ABG Oxyhemoglobin Oxyhemoglobin Sodium 147 H Potassium Chloride 112.5 H Carbon Dioxide 21 L BUN 36 H Creatinine 1.4 H Glucose 281 H POC Glucose Lactic Acid Calcium 6.9 L Phosphorus Magnesium AST ALT Alkaline Phosphatase C-Reactive Protein Total Protein Albumin Triglycerides 189 H Ur Specific [place] Urine Creatinine Crossmatch 06/14/21 06/14/21 06/14/21 10:45 12:16 13:30 WBC RBC Hgb 7.1 L Hct 22.3 L MCV MCH RDW Plt Count Lymph % (Auto) [place] % (Auto) Lymph # (Auto) [place] # (Auto) Seg Neutrophils % Seg Neuts % (Manual) Lymphocytes % (Manual) Monocytes % (Manual) Basophils % (Manual) Seg Neutrophils # Seg Neutrophils # Man Lymphocytes # (Manual) Monocytes # (Manual) PT INR APTT Fibrinogen D-Dimer ABG pH 7.205 L POC ABG pCO2 POC ABG pO2 ABG pO2 261.3 H ABG HCO3 ABG O2 Saturation 99.4 H ABG Base Excess -7.2 L ABG Hemoglobin 7.6 L ABG Oxyhemoglobin Oxyhemoglobin Sodium Potassium Chloride Carbon Dioxide BUN Creatinine Glucose POC Glucose 174 H Lactic Acid Calcium Phosphorus Magnesium AST ALT Alkaline Phosphatase C-Reactive Protein Total Protein Albumin Triglycerides Ur Specific [place] Urine Creatinine Crossmatch 06/14/21 06/14/21 06/15/21 17:40 18:43 00:06 WBC RBC Hgb Hct MCV MCH RDW Plt Count Lymph % (Auto) [place] % (Auto) Lymph # (Auto) [place] # (Auto) Seg Neutrophils % Seg Neuts % (Manual) Lymphocytes % (Manual) Monocytes % (Manual) Basophils % (Manual) Seg Neutrophils # Seg Neutrophils # Man Lymphocytes # (Manual) Monocytes # (Manual) PT INR APTT Fibrinogen D-Dimer ABG pH 7.292 L POC ABG pCO2 POC ABG pO2 ABG pO2 78.8 L ABG HCO3 ABG O2 Saturation ABG Base Excess -5.0 L ABG Hemoglobin 9.1 L ABG Oxyhemoglobin Oxyhemoglobin 93.7 L Sodium Potassium Chloride Carbon Dioxide BUN Creatinine Glucose POC Glucose 182 H 144 H Lactic Acid Calcium Phosphorus Magnesium AST ALT Alkaline Phosphatase C-Reactive Protein Total Protein Albumin Triglycerides Ur Specific [place] Urine Creatinine Crossmatch 06/15/21 06/15/21 06/15/21 03:55 03:56 10:40 WBC RBC Hgb 8.4 L Hct 25.8 L MCV MCH RDW Plt Count Lymph % (Auto) [place] % (Auto) Lymph # (Auto) [place] # (Auto) Seg Neutrophils % Seg Neuts % (Manual) Lymphocytes % (Manual) Monocytes % (Manual) Basophils % (Manual) Seg Neutrophils # Seg Neutrophils # Man Lymphocytes # (Manual) Monocytes # (Manual) PT INR APTT Fibrinogen D-Dimer ABG pH POC ABG pCO2 POC ABG pO2 ABG pO2 ABG HCO3 ABG O2 Saturation ABG Base Excess ABG Hemoglobin ABG Oxyhemoglobin Oxyhemoglobin Sodium 147 H Potassium Chloride 112.2 H Carbon Dioxide 21 L BUN 47 H Creatinine 1.9 H Glucose 272 H POC Glucose Lactic Acid Calcium 7.3 L Phosphorus Magnesium AST 64 H ALT 106 H Alkaline Phosphatase C-Reactive Protein Total Protein 5.1 L Albumin 2.9 L Triglycerides Ur Specific [place] Urine Creatinine 81.1 H Crossmatch 06/15/21 06/15/21 06/15/21 11:46 17:16 23:17 WBC RBC Hgb Hct MCV MCH RDW Plt Count Lymph % (Auto) [place] % (Auto) Lymph # (Auto) [place] # (Auto) Seg Neutrophils % Seg Neuts % (Manual) Lymphocytes % (Manual) Monocytes % (Manual) Basophils % (Manual) Seg Neutrophils # Seg Neutrophils # Man Lymphocytes # (Manual) Monocytes # (Manual) PT INR APTT Fibrinogen D-Dimer ABG pH POC ABG pCO2 POC ABG pO2 ABG pO2 ABG HCO3 ABG O2 Saturation ABG Base Excess ABG Hemoglobin ABG Oxyhemoglobin Oxyhemoglobin Sodium Potassium Chloride Carbon Dioxide BUN Creatinine Glucose POC Glucose 271 H 268 H 264 H Lactic Acid Calcium Phosphorus Magnesium AST ALT Alkaline Phosphatase C-Reactive Protein Total Protein Albumin Triglycerides Ur Specific [place] Urine Creatinine Crossmatch 06/15/21 06/15/21 06/16/21 Unknown Unknown 04:32 WBC RBC 3.21 L 3.16 L Hgb 8.4 L 8.2 L Hct 26.1 L 25.4 L MCV MCH 26 L 26 L RDW 21.3 H 21.2 H Plt Count 105 L 118 L Lymph % (Auto) [place] % (Auto) Lymph # (Auto) [place] # (Auto) Seg Neutrophils % Seg Neuts % (Manual) Lymphocytes % (Manual) Monocytes % (Manual) Basophils % (Manual) Seg Neutrophils # Seg Neutrophils # Man Lymphocytes # (Manual) Monocytes # (Manual) PT INR APTT Fibrinogen D-Dimer ABG pH 7.465 H POC ABG pCO2 POC ABG pO2 ABG pO2 114.1 H ABG HCO3 ABG O2 Saturation ABG Base Excess ABG Hemoglobin 8.4 L ABG Oxyhemoglobin Oxyhemoglobin Sodium Potassium Chloride Carbon Dioxide BUN Creatinine Glucose POC Glucose Lactic Acid Calcium Phosphorus Magnesium AST ALT Alkaline Phosphatase C-Reactive Protein Total Protein Albumin Triglycerides Ur Specific [place] Urine Creatinine Crossmatch 06/16/21 06/16/21 06/16/21 04:32 04:32 05:08 WBC RBC Hgb Hct MCV MCH RDW Plt Count Lymph % (Auto) [place] % (Auto) Lymph # (Auto) [place] # (Auto) Seg Neutrophils % Seg Neuts % (Manual) Lymphocytes % (Manual) Monocytes % (Manual) Basophils % (Manual) Seg Neutrophils # Seg Neutrophils # Man Lymphocytes # (Manual) Monocytes # (Manual) PT INR APTT Fibrinogen D-Dimer ABG pH POC ABG pCO2 POC ABG pO2 ABG pO2 ABG HCO3 ABG O2 Saturation ABG Base Excess ABG Hemoglobin ABG Oxyhemoglobin Oxyhemoglobin Sodium 148 H Potassium 3.3 L Chloride 115.1 H Carbon Dioxide 21 L BUN 54 H Creatinine 1.6 H Glucose 367 H POC Glucose 356 H Lactic Acid Calcium 7.4 L Phosphorus Magnesium AST ALT Alkaline Phosphatase C-Reactive Protein 3.30 H Total Protein Albumin Triglycerides Ur Specific [place] Urine Creatinine Crossmatch 06/16/21 06/16/21 06/16/21 05:30 11:46 17:03 WBC RBC Hgb Hct MCV MCH RDW Plt Count Lymph % (Auto) [place] % (Auto) Lymph # (Auto) [place] # (Auto) Seg Neutrophils % Seg Neuts % (Manual) Lymphocytes % (Manual) Monocytes % (Manual) Basophils % (Manual) Seg Neutrophils # Seg Neutrophils # Man Lymphocytes # (Manual) Monocytes # (Manual) PT INR APTT Fibrinogen D-Dimer ABG pH 7.475 H POC ABG pCO2 POC ABG pO2 ABG pO2 171.8 H ABG HCO3 ABG O2 Saturation 99.1 H ABG Base Excess ABG Hemoglobin 11.7 L ABG Oxyhemoglobin Oxyhemoglobin Sodium Potassium Chloride Carbon Dioxide BUN Creatinine Glucose POC Glucose 309 H 345 H Lactic Acid Calcium Phosphorus Magnesium AST ALT Alkaline Phosphatase C-Reactive Protein Total Protein Albumin Triglycerides Ur Specific [place] Urine Creatinine Crossmatch 06/16/21 06/16/21 06/17/21 20:18 23:22 04:50 WBC RBC Hgb Hct MCV MCH RDW Plt Count Lymph % (Auto) [place] % (Auto) Lymph # (Auto) [place] # (Auto) Seg Neutrophils % Seg Neuts % (Manual) Lymphocytes % (Manual) Monocytes % (Manual) Basophils % (Manual) Seg Neutrophils # Seg Neutrophils # Man Lymphocytes # (Manual) Monocytes # (Manual) PT INR APTT Fibrinogen D-Dimer ABG pH 7.479 H POC ABG pCO2 POC ABG pO2 ABG pO2 143.1 H ABG HCO3 ABG O2 Saturation ABG Base Excess ABG Hemoglobin 10.0 L ABG Oxyhemoglobin Oxyhemoglobin Sodium Potassium Chloride Carbon Dioxide BUN Creatinine Glucose POC Glucose 325 H 315 H Lactic Acid Calcium Phosphorus Magnesium AST ALT Alkaline Phosphatase C-Reactive Protein Total Protein Albumin Triglycerides Ur Specific [place] Urine Creatinine Crossmatch 06/17/21 06/17/21 06/17/21 05:18 05:30 05:30 WBC RBC 3.17 L Hgb 8.2 L Hct 25.5 L MCV MCH 26 L RDW 21.2 H Plt Count 128 L Lymph % (Auto) [place] % (Auto) Lymph # (Auto) [place] # (Auto) Seg Neutrophils % Seg Neuts % (Manual) Lymphocytes % (Manual) Monocytes % (Manual) Basophils % (Manual) Seg Neutrophils # Seg Neutrophils # Man Lymphocytes # (Manual) Monocytes # (Manual) PT INR APTT Fibrinogen D-Dimer ABG pH POC ABG pCO2 POC ABG pO2 ABG pO2 ABG HCO3 ABG O2 Saturation ABG Base Excess ABG Hemoglobin ABG Oxyhemoglobin Oxyhemoglobin Sodium 148 H Potassium Chloride 113.7 H Carbon Dioxide 20 L BUN 57 H Creatinine 1.4 H Glucose 351 H POC Glucose 324 H Lactic Acid Calcium 8.0 L Phosphorus 2.30 L Magnesium AST ALT Alkaline Phosphatase C-Reactive Protein Total Protein Albumin Triglycerides Ur Specific [place] Urine Creatinine Crossmatch 06/17/21 06/17/21 06/17/21 11:49 17:43 21:42 WBC RBC Hgb Hct MCV MCH RDW Plt Count Lymph % (Auto) [place] % (Auto) Lymph # (Auto) [place] # (Auto) Seg Neutrophils % Seg Neuts % (Manual) Lymphocytes % (Manual) Monocytes % (Manual) Basophils % (Manual) Seg Neutrophils # Seg Neutrophils # Man Lymphocytes # (Manual) Monocytes # (Manual) PT INR APTT Fibrinogen D-Dimer ABG pH POC ABG pCO2 POC ABG pO2 ABG pO2 ABG HCO3 ABG O2 Saturation ABG Base Excess ABG Hemoglobin ABG Oxyhemoglobin Oxyhemoglobin Sodium Potassium Chloride Carbon Dioxide BUN Creatinine Glucose POC Glucose 305 H 307 H 286 H Lactic Acid Calcium Phosphorus Magnesium AST ALT Alkaline Phosphatase C-Reactive Protein Total Protein Albumin Triglycerides Ur Specific [place] Urine Creatinine Crossmatch 06/17/21 06/18/21 06/18/21 23:59 04:20 04:37 WBC RBC 3.53 L Hgb 9.1 L Hct 28.7 L MCV MCH 26 L RDW 21.3 H Plt Count Lymph % (Auto) [place] % (Auto) Lymph # (Auto) [place] # (Auto) Seg Neutrophils % Seg Neuts % (Manual) Lymphocytes % (Manual) Monocytes % (Manual) Basophils % (Manual) Seg Neutrophils # Seg Neutrophils # Man Lymphocytes # (Manual) Monocytes # (Manual) PT INR APTT Fibrinogen D-Dimer ABG pH 7.495 H POC ABG pCO2 POC ABG pO2 ABG pO2 108.3 H ABG HCO3 ABG O2 Saturation ABG Base Excess -2.1 L ABG Hemoglobin 10.0 L ABG Oxyhemoglobin Oxyhemoglobin Sodium Potassium Chloride Carbon Dioxide BUN Creatinine Glucose POC Glucose 264 H Lactic Acid Calcium Phosphorus Magnesium AST ALT Alkaline Phosphatase C-Reactive Protein Total Protein Albumin Triglycerides Ur Specific [place] Urine Creatinine Crossmatch 06/18/21 06/18/21 06/18/21 04:37 05:32 11:21 WBC RBC Hgb Hct MCV MCH RDW Plt Count Lymph % (Auto) [place] % (Auto) Lymph # (Auto) [place] # (Auto) Seg Neutrophils % Seg Neuts % (Manual) Lymphocytes % (Manual) Monocytes % (Manual) Basophils % (Manual) Seg Neutrophils # Seg Neutrophils # Man Lymphocytes # (Manual) Monocytes # (Manual) PT INR APTT Fibrinogen D-Dimer ABG pH POC ABG pCO2 POC ABG pO2 ABG pO2 ABG HCO3 ABG O2 Saturation ABG Base Excess ABG Hemoglobin ABG Oxyhemoglobin Oxyhemoglobin Sodium 148 H Potassium Chloride 114.7 H Carbon Dioxide BUN 59 H Creatinine 1.3 H Glucose 329 H POC Glucose 293 H 291 H Lactic Acid Calcium 8.1 L Phosphorus Magnesium AST ALT Alkaline Phosphatase C-Reactive Protein Total Protein Albumin Triglycerides Ur Specific [place] Urine Creatinine Crossmatch 06/18/21 06/18/21 06/19/21 18:21 21:46 00:15 WBC RBC Hgb Hct MCV MCH RDW Plt Count Lymph % (Auto) [place] % (Auto) Lymph # (Auto) [place] # (Auto) Seg Neutrophils % Seg Neuts % (Manual) Lymphocytes % (Manual) Monocytes % (Manual) Basophils % (Manual) Seg Neutrophils # Seg Neutrophils # Man Lymphocytes # (Manual) Monocytes # (Manual) PT INR APTT Fibrinogen D-Dimer ABG pH POC ABG pCO2 POC ABG pO2 ABG pO2 ABG HCO3 ABG O2 Saturation ABG Base Excess ABG Hemoglobin ABG Oxyhemoglobin Oxyhemoglobin Sodium Potassium Chloride Carbon Dioxide BUN Creatinine Glucose POC Glucose 239 H 259 H 310 H Lactic Acid Calcium Phosphorus Magnesium AST ALT Alkaline Phosphatase C-Reactive Protein Total Protein Albumin Triglycerides Ur Specific [place] Urine Creatinine Crossmatch 06/19/21 06/19/21 06/19/21 04:00 04:00 04:50 WBC RBC 3.64 L Hgb 9.1 L Hct 29.1 L MCV MCH 25 L RDW 21.5 H Plt Count Lymph % (Auto) [place] % (Auto) Lymph # (Auto) [place] # (Auto) Seg Neutrophils % Seg Neuts % (Manual) Lymphocytes % (Manual) Monocytes % (Manual) Basophils % (Manual) Seg Neutrophils # Seg Neutrophils # Man Lymphocytes # (Manual) Monocytes # (Manual) PT INR APTT Fibrinogen D-Dimer ABG pH POC ABG pCO2 POC ABG pO2 ABG pO2 78.9 L ABG HCO3 ABG O2 Saturation ABG Base Excess -3.2 L ABG Hemoglobin 7.6 L ABG Oxyhemoglobin Oxyhemoglobin Sodium 148 H Potassium Chloride 114.9 H Carbon Dioxide 19 L BUN 59 H Creatinine Glucose 345 H POC Glucose Lactic Acid Calcium 8.1 L Phosphorus 4.60 H D Magnesium 2.40 H AST ALT Alkaline Phosphatase C-Reactive Protein Total Protein Albumin Triglycerides Ur Specific [place] Urine Creatinine Crossmatch 06/19/21 06/19/21 06/19/21 06:28 11:11 17:20 WBC RBC Hgb Hct MCV MCH RDW Plt Count Lymph % (Auto) [place] % (Auto) Lymph # (Auto) [place] # (Auto) Seg Neutrophils % Seg Neuts % (Manual) Lymphocytes % (Manual) Monocytes % (Manual) Basophils % (Manual) Seg Neutrophils # Seg Neutrophils # Man Lymphocytes # (Manual) Monocytes # (Manual) PT 29.7 H INR 2.57 H APTT Fibrinogen D-Dimer ABG pH POC ABG pCO2 POC ABG pO2 ABG pO2 ABG HCO3 ABG O2 Saturation ABG Base Excess ABG Hemoglobin ABG Oxyhemoglobin Oxyhemoglobin Sodium Potassium Chloride Carbon Dioxide BUN Creatinine Glucose POC Glucose 279 H 275 H Lactic Acid Calcium Phosphorus Magnesium AST ALT Alkaline Phosphatase C-Reactive Protein Total Protein Albumin Triglycerides Ur Specific [place] Urine Creatinine Crossmatch 06/19/21 06/19/21 06/19/21 18:30 19:20 23:27 WBC RBC Hgb 8.0 L Hct 25.0 L MCV MCH RDW Plt Count Lymph % (Auto) [place] % (Auto) Lymph # (Auto) [place] # (Auto) Seg Neutrophils % Seg Neuts % (Manual) Lymphocytes % (Manual) Monocytes % (Manual) Basophils % (Manual) Seg Neutrophils # Seg Neutrophils # Man Lymphocytes # (Manual) Monocytes # (Manual) PT INR APTT Fibrinogen D-Dimer ABG pH POC ABG pCO2 POC ABG pO2 ABG pO2 ABG HCO3 ABG O2 Saturation ABG Base Excess ABG Hemoglobin ABG Oxyhemoglobin Oxyhemoglobin Sodium Potassium Chloride Carbon Dioxide BUN Creatinine Glucose POC Glucose 279 H 290 H Lactic Acid Calcium Phosphorus Magnesium AST ALT Alkaline Phosphatase C-Reactive Protein Total Protein Albumin Triglycerides Ur Specific [place] Urine Creatinine Crossmatch 06/20/21 06/20/21 06/20/21 00:00 04:33 04:33 WBC 22.3 H RBC 3.31 L Hgb 7.4 L 8.5 L Hct 22.5 L 26.5 L MCV MCH 26 L RDW 21.5 H Plt Count Lymph % (Auto) [place] % (Auto) Lymph # (Auto) [place] # (Auto) Seg Neutrophils % Seg Neuts % (Manual) Lymphocytes % (Manual) Monocytes % (Manual) Basophils % (Manual) Seg Neutrophils # Seg Neutrophils # Man Lymphocytes # (Manual) Monocytes # (Manual) PT INR APTT Fibrinogen D-Dimer ABG pH POC ABG pCO2 POC ABG pO2 ABG pO2 ABG HCO3 ABG O2 Saturation ABG Base Excess ABG Hemoglobin ABG Oxyhemoglobin Oxyhemoglobin Sodium 148 H Potassium Chloride 114.2 H Carbon Dioxide BUN 70 H Creatinine 1.4 H Glucose 313 H POC Glucose Lactic Acid Calcium 8.2 L Phosphorus Magnesium 2.50 H AST ALT Alkaline Phosphatase C-Reactive Protein Total Protein Albumin Triglycerides Ur Specific [place] Urine Creatinine Crossmatch 06/20/21 06/20/21 06/20/21 04:33 05:27 11:21 WBC RBC Hgb Hct MCV MCH RDW Plt Count Lymph % (Auto) [place] % (Auto) Lymph # (Auto) [place] # (Auto) Seg Neutrophils % Seg Neuts % (Manual) Lymphocytes % (Manual) Monocytes % (Manual) Basophils % (Manual) Seg Neutrophils # Seg Neutrophils # Man Lymphocytes # (Manual) Monocytes # (Manual) PT 18.3 H INR 1.37 H APTT Fibrinogen D-Dimer ABG pH POC ABG pCO2 POC ABG pO2 ABG pO2 ABG HCO3 ABG O2 Saturation ABG Base Excess ABG Hemoglobin ABG Oxyhemoglobin Oxyhemoglobin Sodium Potassium Chloride Carbon Dioxide BUN Creatinine Glucose POC Glucose 288 H 306 H Lactic Acid Calcium Phosphorus Magnesium AST ALT Alkaline Phosphatase C-Reactive Protein Total Protein Albumin Triglycerides Ur Specific [place] Urine Creatinine Crossmatch 06/20/21 06/20/21 06/20/21 12:23 15:56 18:20 WBC RBC Hgb 8.2 L 8.1 L Hct 25.9 L 25.5 L MCV MCH RDW Plt Count Lymph % (Auto) [place] % (Auto) Lymph # (Auto) [place] # (Auto) Seg Neutrophils % Seg Neuts % (Manual) Lymphocytes % (Manual) Monocytes % (Manual) Basophils % (Manual) Seg Neutrophils # Seg Neutrophils # Man Lymphocytes # (Manual) Monocytes # (Manual) PT INR APTT Fibrinogen D-Dimer ABG pH POC ABG pCO2 POC ABG pO2 ABG pO2 ABG HCO3 ABG O2 Saturation ABG Base Excess ABG Hemoglobin ABG Oxyhemoglobin Oxyhemoglobin Sodium Potassium Chloride Carbon Dioxide BUN Creatinine Glucose POC Glucose 293 H Lactic Acid Calcium Phosphorus Magnesium AST ALT Alkaline Phosphatase C-Reactive Protein Total Protein Albumin Triglycerides Ur Specific [place] Urine Creatinine Crossmatch 06/20/21 06/21/21 06/21/21 23:11 04:20 04:42 WBC 15.1 H RBC 2.84 L Hgb 7.3 L Hct 23.1 L MCV MCH 26 L RDW 21.5 H Plt Count Lymph % (Auto) 3.5 L [place] % (Auto) 11.7 H Lymph # (Auto) 0.5 L [place] # (Auto) 1.8 H Seg Neutrophils % 84.7 H Seg Neuts % (Manual) Lymphocytes % (Manual) Monocytes % (Manual) Basophils % (Manual) Seg Neutrophils # 12.8 H Seg Neutrophils # Man Lymphocytes # (Manual) Monocytes # (Manual) PT INR APTT Fibrinogen D-Dimer ABG pH POC ABG pCO2 POC ABG pO2 ABG pO2 98.5 H ABG HCO3 ABG O2 Saturation ABG Base Excess ABG Hemoglobin 7.2 L ABG Oxyhemoglobin Oxyhemoglobin Sodium Potassium Chloride Carbon Dioxide BUN Creatinine Glucose POC Glucose 206 H Lactic Acid Calcium Phosphorus Magnesium AST ALT Alkaline Phosphatase C-Reactive Protein Total Protein Albumin Triglycerides Ur Specific [place] Urine Creatinine Crossmatch 06/21/21 06/21/21 06/21/21 04:42 05:08 11:06 WBC RBC Hgb Hct MCV MCH RDW Plt Count Lymph % (Auto) [place] % (Auto) Lymph # (Auto) [place] # (Auto) Seg Neutrophils % Seg Neuts % (Manual) Lymphocytes % (Manual) Monocytes % (Manual) Basophils % (Manual) Seg Neutrophils # Seg Neutrophils # Man Lymphocytes # (Manual) Monocytes # (Manual) PT INR APTT Fibrinogen D-Dimer ABG pH POC ABG pCO2 POC ABG pO2 ABG pO2 ABG HCO3 ABG O2 Saturation ABG Base Excess ABG Hemoglobin ABG Oxyhemoglobin Oxyhemoglobin Sodium 151 H Potassium Chloride 117.2 H Carbon Dioxide 21 L BUN 75 H Creatinine 1.6 H Glucose 216 H POC Glucose 190 H 204 H Lactic Acid Calcium 7.9 L Phosphorus Magnesium 2.60 H AST ALT Alkaline Phosphatase C-Reactive Protein Total Protein Albumin Triglycerides 254 H Ur Specific [place] Urine Creatinine Crossmatch 06/21/21 06/21/21 06/21/21 14:00 16:42 21:52 WBC RBC Hgb 7.1 L 7.2 L Hct 22.0 L 22.1 L MCV MCH RDW Plt Count Lymph % (Auto) [place] % (Auto) Lymph # (Auto) [place] # (Auto) Seg Neutrophils % Seg Neuts % (Manual) Lymphocytes % (Manual) Monocytes % (Manual) Basophils % (Manual) Seg Neutrophils # Seg Neutrophils # Man Lymphocytes # (Manual) Monocytes # (Manual) PT INR APTT Fibrinogen D-Dimer ABG pH POC ABG pCO2 POC ABG pO2 ABG pO2 ABG HCO3 ABG O2 Saturation ABG Base Excess ABG Hemoglobin ABG Oxyhemoglobin Oxyhemoglobin Sodium Potassium Chloride Carbon Dioxide BUN Creatinine Glucose POC Glucose 207 H Lactic Acid Calcium Phosphorus Magnesium AST ALT Alkaline Phosphatase C-Reactive Protein Total Protein Albumin Triglycerides Ur Specific [place] Urine Creatinine Crossmatch 06/21/21 06/22/21 06/22/21 23:29 04:30 04:30 WBC 16.8 H RBC 2.93 L Hgb 7.4 L Hct 23.9 L MCV MCH 25 L RDW 21.8 H Plt Count Lymph % (Auto) [place] % (Auto) Lymph # (Auto) [place] # (Auto) Seg Neutrophils % Seg Neuts % (Manual) Lymphocytes % (Manual) Monocytes % (Manual) Basophils % (Manual) Seg Neutrophils # Seg Neutrophils # Man Lymphocytes # (Manual) Monocytes # (Manual) PT INR APTT Fibrinogen D-Dimer ABG pH POC ABG pCO2 POC ABG pO2 ABG pO2 ABG HCO3 ABG O2 Saturation ABG Base Excess ABG Hemoglobin ABG Oxyhemoglobin Oxyhemoglobin Sodium 151 H Potassium Chloride 118.7 H Carbon Dioxide BUN 57 H Creatinine Glucose 238 H POC Glucose 273 H Lactic Acid Calcium 8.0 L Phosphorus Magnesium 2.70 H AST ALT Alkaline Phosphatase C-Reactive Protein Total Protein Albumin Triglycerides Ur Specific [place] Urine Creatinine Crossmatch 06/22/21 06/22/21 06/22/21 05:17 11:31 14:20 WBC RBC Hgb 7.4 L Hct 22.5 L MCV MCH RDW Plt Count Lymph % (Auto) [place] % (Auto) Lymph # (Auto) [place] # (Auto) Seg Neutrophils % Seg Neuts % (Manual) Lymphocytes % (Manual) Monocytes % (Manual) Basophils % (Manual) Seg Neutrophils # Seg Neutrophils # Man Lymphocytes # (Manual) Monocytes # (Manual) PT INR APTT Fibrinogen D-Dimer ABG pH POC ABG pCO2 POC ABG pO2 ABG pO2 ABG HCO3 ABG O2 Saturation ABG Base Excess ABG Hemoglobin ABG Oxyhemoglobin Oxyhemoglobin Sodium Potassium Chloride Carbon Dioxide BUN Creatinine Glucose POC Glucose 214 H 214 H Lactic Acid Calcium Phosphorus Magnesium AST ALT Alkaline Phosphatase C-Reactive Protein Total Protein Albumin Triglycerides Ur Specific [place] Urine Creatinine Crossmatch 06/22/21 06/22/21 06/23/21 17:18 23:47 05:33 WBC RBC Hgb Hct MCV MCH RDW Plt Count Lymph % (Auto) [place] % (Auto) Lymph # (Auto) [place] # (Auto) Seg Neutrophils % Seg Neuts % (Manual) Lymphocytes % (Manual) Monocytes % (Manual) Basophils % (Manual) Seg Neutrophils # Seg Neutrophils # Man Lymphocytes # (Manual) Monocytes # (Manual) PT INR APTT Fibrinogen D-Dimer ABG pH POC ABG pCO2 POC ABG pO2 ABG pO2 ABG HCO3 ABG O2 Saturation ABG Base Excess ABG Hemoglobin ABG Oxyhemoglobin Oxyhemoglobin Sodium Potassium Chloride Carbon Dioxide BUN Creatinine Glucose POC Glucose 238 H 227 H 202 H Lactic Acid Calcium Phosphorus Magnesium AST ALT Alkaline Phosphatase C-Reactive Protein Total Protein Albumin Triglycerides Ur Specific [place] Urine Creatinine Crossmatch 06/23/21 06/23/21 06/23/21 10:04 10:04 11:06 WBC 20.3 H RBC 2.71 L Hgb 7.3 L Hct 21.8 L MCV MCH 27 L RDW 22.1 H Plt Count Lymph % (Auto) [place] % (Auto) Lymph # (Auto) [place] # (Auto) Seg Neutrophils % Seg Neuts % (Manual) Lymphocytes % (Manual) Monocytes % (Manual) Basophils % (Manual) Seg Neutrophils # Seg Neutrophils # Man Lymphocytes # (Manual) Monocytes # (Manual) PT INR APTT Fibrinogen D-Dimer ABG pH POC ABG pCO2 POC ABG pO2 ABG pO2 ABG HCO3 ABG O2 Saturation ABG Base Excess ABG Hemoglobin ABG Oxyhemoglobin Oxyhemoglobin Sodium 151 H Potassium 3.2 L Chloride 116.9 H Carbon Dioxide BUN 40 H Creatinine Glucose 208 H POC Glucose 204 H Lactic Acid Calcium 8.0 L Phosphorus 1.80 L D Magnesium AST ALT Alkaline Phosphatase C-Reactive Protein Total Protein Albumin Triglycerides Ur Specific [place] Urine Creatinine Crossmatch 06/23/21 06/23/21 06/24/21 16:11 23:47 04:00 WBC 16.9 H RBC 2.49 L Hgb 6.6 L Hct 20.3 L MCV MCH 26 L RDW 22.6 H Plt Count Lymph % (Auto) [place] % (Auto) Lymph # (Auto) [place] # (Auto) Seg Neutrophils % Seg Neuts % (Manual) Lymphocytes % (Manual) Monocytes % (Manual) Basophils % (Manual) Seg Neutrophils # Seg Neutrophils # Man Lymphocytes # (Manual) Monocytes # (Manual) PT INR APTT Fibrinogen D-Dimer ABG pH POC ABG pCO2 POC ABG pO2 ABG pO2 ABG HCO3 ABG O2 Saturation ABG Base Excess ABG Hemoglobin ABG Oxyhemoglobin Oxyhemoglobin Sodium Potassium Chloride Carbon Dioxide BUN Creatinine Glucose POC Glucose 228 H 189 H Lactic Acid Calcium Phosphorus Magnesium AST ALT Alkaline Phosphatase C-Reactive Protein Total Protein Albumin Triglycerides Ur Specific [place] Urine Creatinine Crossmatch 06/24/21 06/24/21 06/24/21 04:00 05:43 06:40 WBC RBC Hgb Hct MCV MCH RDW Plt Count Lymph % (Auto) [place] % (Auto) Lymph # (Auto) [place] # (Auto) Seg Neutrophils % Seg Neuts % (Manual) Lymphocytes % (Manual) Monocytes % (Manual) Basophils % (Manual) Seg Neutrophils # Seg Neutrophils # Man Lymphocytes # (Manual) Monocytes # (Manual) PT INR APTT Fibrinogen D-Dimer ABG pH POC ABG pCO2 POC ABG pO2 ABG pO2 ABG HCO3 ABG O2 Saturation ABG Base Excess ABG Hemoglobin ABG Oxyhemoglobin Oxyhemoglobin Sodium 148 H Potassium 3.2 L Chloride 115.6 H Carbon Dioxide BUN 35 H Creatinine Glucose 153 H POC Glucose 134 H Lactic Acid Calcium 7.9 L Phosphorus 2.40 L D Magnesium AST ALT Alkaline Phosphatase C-Reactive Protein Total Protein Albumin Triglycerides Ur Specific [place] Urine Creatinine Crossmatch See Detail 06/24/21 06/24/21 06/24/21 11:08 16:47 21:49 WBC RBC Hgb Hct MCV MCH RDW Plt Count Lymph % (Auto) [place] % (Auto) Lymph # (Auto) [place] # (Auto) Seg Neutrophils % Seg Neuts % (Manual) Lymphocytes % (Manual) Monocytes % (Manual) Basophils % (Manual) Seg Neutrophils # Seg Neutrophils # Man Lymphocytes # (Manual) Monocytes # (Manual) PT INR APTT Fibrinogen D-Dimer ABG pH POC ABG pCO2 POC ABG pO2 ABG pO2 ABG HCO3 ABG O2 Saturation ABG Base Excess ABG Hemoglobin ABG Oxyhemoglobin Oxyhemoglobin Sodium Potassium Chloride Carbon Dioxide BUN Creatinine Glucose POC Glucose 153 H 201 H 132 H Lactic Acid Calcium Phosphorus Magnesium AST ALT Alkaline Phosphatase C-Reactive Protein Total Protein Albumin Triglycerides Ur Specific [place] Urine Creatinine Crossmatch 06/24/21 06/25/21 06/25/21 23:24 05:30 09:00 WBC RBC Hgb 8.3 L Hct 27.0 L MCV MCH RDW Plt Count Lymph % (Auto) [place] % (Auto) Lymph # (Auto) [place] # (Auto) Seg Neutrophils % Seg Neuts % (Manual) Lymphocytes % (Manual) Monocytes % (Manual) Basophils % (Manual) Seg Neutrophils # Seg Neutrophils # Man Lymphocytes # (Manual) Monocytes # (Manual) PT INR APTT Fibrinogen D-Dimer ABG pH POC ABG pCO2 POC ABG pO2 ABG pO2 ABG HCO3 ABG O2 Saturation ABG Base Excess ABG Hemoglobin ABG Oxyhemoglobin Oxyhemoglobin Sodium Potassium Chloride Carbon Dioxide BUN Creatinine Glucose POC Glucose 170 H 151 H Lactic Acid Calcium Phosphorus Magnesium AST ALT Alkaline Phosphatase C-Reactive Protein Total Protein Albumin Triglycerides Ur Specific [place] Urine Creatinine Crossmatch 06/25/21 06/25/21 06/25/21 11:29 14:24 16:48 WBC RBC Hgb 8.5 L Hct 27.5 L MCV MCH RDW Plt Count Lymph % (Auto) [place] % (Auto) Lymph # (Auto) [place] # (Auto) Seg Neutrophils % Seg Neuts % (Manual) Lymphocytes % (Manual) Monocytes % (Manual) Basophils % (Manual) Seg Neutrophils # Seg Neutrophils # Man Lymphocytes # (Manual) Monocytes # (Manual) PT INR APTT Fibrinogen D-Dimer ABG pH POC ABG pCO2 POC ABG pO2 ABG pO2 ABG HCO3 ABG O2 Saturation ABG Base Excess ABG Hemoglobin ABG Oxyhemoglobin Oxyhemoglobin Sodium Potassium Chloride Carbon Dioxide BUN Creatinine Glucose POC Glucose 189 H 224 H Lactic Acid Calcium Phosphorus Magnesium AST ALT Alkaline Phosphatase C-Reactive Protein Total Protein Albumin Triglycerides Ur Specific [place] Urine Creatinine Crossmatch 06/25/21 06/25/21 06/25/21 23:39 Unknown Unknown WBC 16.5 H RBC 2.90 L Hgb 8.0 L Hct 23.8 L MCV MCH RDW 22.8 H Plt Count Lymph % (Auto) [place] % (Auto) Lymph # (Auto) [place] # (Auto) Seg Neutrophils % Seg Neuts % (Manual) Lymphocytes % (Manual) Monocytes % (Manual) Basophils % (Manual) Seg Neutrophils # Seg Neutrophils # Man Lymphocytes # (Manual) Monocytes # (Manual) PT INR APTT Fibrinogen D-Dimer ABG pH POC ABG pCO2 POC ABG pO2 ABG pO2 ABG HCO3 ABG O2 Saturation ABG Base Excess ABG Hemoglobin ABG Oxyhemoglobin Oxyhemoglobin Sodium 149 H Potassium Chloride 115.6 H Carbon Dioxide BUN 28 H Creatinine Glucose 157 H POC Glucose 187 H Lactic Acid Calcium 8.0 L Phosphorus Magnesium AST ALT Alkaline Phosphatase C-Reactive Protein Total Protein Albumin Triglycerides Ur Specific [place] Urine Creatinine Crossmatch 06/26/21 06/26/21 06/26/21 05:22 05:29 05:29 WBC 16.2 H RBC 3.03 L Hgb 8.0 L Hct 25.1 L MCV MCH 26 L RDW 23.2 H Plt Count Lymph % (Auto) [place] % (Auto) Lymph # (Auto) [place] # (Auto) Seg Neutrophils % Seg Neuts % (Manual) Lymphocytes % (Manual) Monocytes % (Manual) Basophils % (Manual) Seg Neutrophils # Seg Neutrophils # Man Lymphocytes # (Manual) Monocytes # (Manual) PT INR APTT Fibrinogen D-Dimer ABG pH POC ABG pCO2 POC ABG pO2 ABG pO2 ABG HCO3 ABG O2 Saturation ABG Base Excess ABG Hemoglobin ABG Oxyhemoglobin Oxyhemoglobin Sodium 150 H Potassium Chloride 114.8 H Carbon Dioxide BUN 29 H Creatinine Glucose 229 H POC Glucose 211 H Lactic Acid Calcium 8.2 L Phosphorus Magnesium AST ALT Alkaline Phosphatase C-Reactive Protein Total Protein Albumin Triglycerides Ur Specific [place] Urine Creatinine Crossmatch 06/26/21 06/26/21 06/26/21 11:05 15:59 22:00 WBC RBC Hgb Hct MCV MCH RDW Plt Count Lymph % (Auto) [place] % (Auto) Lymph # (Auto) [place] # (Auto) Seg Neutrophils % Seg Neuts % (Manual) Lymphocytes % (Manual) Monocytes % (Manual) Basophils % (Manual) Seg Neutrophils # Seg Neutrophils # Man Lymphocytes # (Manual) Monocytes # (Manual) PT INR APTT Fibrinogen D-Dimer ABG pH POC ABG pCO2 POC ABG pO2 ABG pO2 ABG HCO3 ABG O2 Saturation ABG Base Excess ABG Hemoglobin ABG Oxyhemoglobin Oxyhemoglobin Sodium Potassium Chloride Carbon Dioxide BUN Creatinine Glucose POC Glucose 213 H 222 H 161 H Lactic Acid Calcium Phosphorus Magnesium AST ALT Alkaline Phosphatase C-Reactive Protein Total Protein Albumin Triglycerides Ur Specific [place] Urine Creatinine Crossmatch 06/26/21 06/27/21 06/27/21 23:24 04:15 04:15 WBC 14.3 H RBC 2.96 L Hgb 8.1 L Hct 24.6 L MCV MCH 27 L RDW 23.0 H Plt Count Lymph % (Auto) [place] % (Auto) Lymph # (Auto) [place] # (Auto) Seg Neutrophils % Seg Neuts % (Manual) Lymphocytes % (Manual) Monocytes % (Manual) Basophils % (Manual) Seg Neutrophils # Seg Neutrophils # Man Lymphocytes # (Manual) Monocytes # (Manual) PT INR APTT Fibrinogen D-Dimer ABG pH POC ABG pCO2 POC ABG pO2 ABG pO2 ABG HCO3 ABG O2 Saturation ABG Base Excess ABG Hemoglobin ABG Oxyhemoglobin Oxyhemoglobin Sodium 150 H Potassium Chloride 113.8 H Carbon Dioxide BUN 26 H Creatinine Glucose 246 H POC Glucose 164 H Lactic Acid Calcium 7.8 L Phosphorus Magnesium AST ALT Alkaline Phosphatase C-Reactive Protein Total Protein Albumin Triglycerides Ur Specific [place] Urine Creatinine Crossmatch 06/27/21 06/27/21 06/27/21 05:44 11:07 16:06 WBC RBC Hgb Hct MCV MCH RDW Plt Count Lymph % (Auto) [place] % (Auto) Lymph # (Auto) [place] # (Auto) Seg Neutrophils % Seg Neuts % (Manual) Lymphocytes % (Manual) Monocytes % (Manual) Basophils % (Manual) Seg Neutrophils # Seg Neutrophils # Man Lymphocytes # (Manual) Monocytes # (Manual) PT INR APTT Fibrinogen D-Dimer ABG pH POC ABG pCO2 POC ABG pO2 ABG pO2 ABG HCO3 ABG O2 Saturation ABG Base Excess ABG Hemoglobin ABG Oxyhemoglobin Oxyhemoglobin Sodium Potassium Chloride Carbon Dioxide BUN Creatinine Glucose POC Glucose 226 H 204 H 224 H Lactic Acid Calcium Phosphorus Magnesium AST ALT Alkaline Phosphatase C-Reactive Protein Total Protein Albumin Triglycerides Ur Specific [place] Urine Creatinine Crossmatch 06/27/21 06/28/21 06/28/21 23:49 04:00 04:00 WBC 15.4 H RBC 3.05 L Hgb 8.2 L Hct 25.0 L MCV MCH 27 L RDW 22.6 H Plt Count Lymph % (Auto) [place] % (Auto) Lymph # (Auto) [place] # (Auto) Seg Neutrophils % Seg Neuts % (Manual) Lymphocytes % (Manual) Monocytes % (Manual) Basophils % (Manual) Seg Neutrophils # Seg Neutrophils # Man Lymphocytes # (Manual) Monocytes # (Manual) PT INR APTT Fibrinogen D-Dimer ABG pH POC ABG pCO2 POC ABG pO2 ABG pO2 ABG HCO3 ABG O2 Saturation ABG Base Excess ABG Hemoglobin ABG Oxyhemoglobin Oxyhemoglobin Sodium 152 H Potassium 3.0 L Chloride 114.9 H Carbon Dioxide BUN 24 H Creatinine Glucose 158 H POC Glucose 195 H Lactic Acid Calcium 8.1 L Phosphorus Magnesium AST ALT Alkaline Phosphatase C-Reactive Protein Total Protein Albumin Triglycerides Ur Specific [place] Urine Creatinine Crossmatch 06/28/21 06/28/21 06/28/21 05:05 11:47 17:21 WBC RBC Hgb Hct MCV MCH RDW Plt Count Lymph % (Auto) [place] % (Auto) Lymph # (Auto) [place] # (Auto) Seg Neutrophils % Seg Neuts % (Manual) Lymphocytes % (Manual) Monocytes % (Manual) Basophils % (Manual) Seg Neutrophils # Seg Neutrophils # Man Lymphocytes # (Manual) Monocytes # (Manual) PT INR APTT Fibrinogen D-Dimer ABG pH POC ABG pCO2 POC ABG pO2 ABG pO2 ABG HCO3 ABG O2 Saturation ABG Base Excess ABG Hemoglobin ABG Oxyhemoglobin Oxyhemoglobin Sodium Potassium Chloride Carbon Dioxide BUN Creatinine Glucose POC Glucose 121 H 164 H 166 H Lactic Acid Calcium Phosphorus Magnesium AST ALT Alkaline Phosphatase C-Reactive Protein Total Protein Albumin Triglycerides Ur Specific [place] Urine Creatinine Crossmatch 06/28/21 06/28/21 06/29/21 18:14 21:54 00:55 WBC RBC Hgb Hct MCV MCH RDW Plt Count Lymph % (Auto) [place] % (Auto) Lymph # (Auto) [place] # (Auto) Seg Neutrophils % Seg Neuts % (Manual) Lymphocytes % (Manual) Monocytes % (Manual) Basophils % (Manual) Seg Neutrophils # Seg Neutrophils # Man Lymphocytes # (Manual) Monocytes # (Manual) PT INR APTT Fibrinogen D-Dimer ABG pH POC ABG pCO2 POC ABG pO2 ABG pO2 ABG HCO3 ABG O2 Saturation ABG Base Excess ABG Hemoglobin ABG Oxyhemoglobin Oxyhemoglobin Sodium Potassium Chloride Carbon Dioxide BUN Creatinine Glucose POC Glucose 150 H 148 H 176 H Lactic Acid Calcium Phosphorus Magnesium AST ALT Alkaline Phosphatase C-Reactive Protein Total Protein Albumin Triglycerides Ur Specific [place] Urine Creatinine Crossmatch 06/29/21 06/29/21 06/29/21 04:00 04:00 05:20 WBC 15.3 H RBC 3.04 L Hgb 8.0 L Hct 25.0 L MCV MCH 26 L RDW 22.3 H Plt Count Lymph % (Auto) [place] % (Auto) Lymph # (Auto) [place] # (Auto) Seg Neutrophils % Seg Neuts % (Manual) Lymphocytes % (Manual) Monocytes % (Manual) Basophils % (Manual) Seg Neutrophils # Seg Neutrophils # Man Lymphocytes # (Manual) Monocytes # (Manual) PT INR APTT Fibrinogen D-Dimer ABG pH POC ABG pCO2 POC ABG pO2 ABG pO2 ABG HCO3 ABG O2 Saturation ABG Base Excess ABG Hemoglobin ABG Oxyhemoglobin Oxyhemoglobin Sodium Potassium 3.1 L Chloride 108.7 H Carbon Dioxide BUN 20 H Creatinine Glucose 194 H POC Glucose 185 H Lactic Acid Calcium 8.0 L Phosphorus Magnesium AST ALT Alkaline Phosphatase C-Reactive Protein Total Protein Albumin Triglycerides Ur Specific [place] Urine Creatinine Crossmatch 06/29/21 06/29/2106/30/22 12:18 17:20 00:49 WBC RBC Hgb Hct MCV MCH RDW Plt Count Lymph % (Auto) [place] % (Auto) Lymph # (Auto) [place] # (Auto) Seg Neutrophils % Seg Neuts % (Manual) Lymphocytes % (Manual) Monocytes % (Manual) Basophils % (Manual) Seg Neutrophils # Seg Neutrophils # Man Lymphocytes # (Manual) Monocytes # (Manual) PT INR APTT Fibrinogen D-Dimer ABG pH POC ABG pCO2 POC ABG pO2 ABG pO2 ABG HCO3 ABG O2 Saturation ABG Base Excess ABG Hemoglobin ABG Oxyhemoglobin Oxyhemoglobin Sodium Potassium Chloride Carbon Dioxide BUN Creatinine Glucose POC Glucose 135 H 185 H 156 H Lactic Acid Calcium Phosphorus Magnesium AST ALT Alkaline Phosphatase C-Reactive Protein Total Protein Albumin Triglycerides Ur Specific [place] Urine Creatinine Crossmatch 06/30/21 06/30/21 06/30/21 04:25 04:25 08:14 WBC 13.0 H RBC 3.19 L Hgb 8.2 L Hct 26.2 L MCV MCH 26 L RDW 22.3 H Plt Count Lymph % (Auto) [place] % (Auto) Lymph # (Auto) [place] # (Auto) Seg Neutrophils % Seg Neuts % (Manual) 81.0 H Lymphocytes % (Manual) 10.0 L Monocytes % (Manual) 8.0 H Basophils % (Manual) Seg Neutrophils # Seg Neutrophils # Man 10.5 H Lymphocytes # (Manual) Monocytes # (Manual) 1.0 H PT INR APTT Fibrinogen D-Dimer ABG pH POC ABG pCO2 POC ABG pO2 ABG pO2 ABG HCO3 ABG O2 Saturation ABG Base Excess ABG Hemoglobin ABG Oxyhemoglobin Oxyhemoglobin Sodium Potassium 3.0 L Chloride Carbon Dioxide BUN 20 H Creatinine Glucose 104 H POC Glucose 119 H Lactic Acid Calcium 8.3 L Phosphorus Magnesium AST ALT Alkaline Phosphatase C-Reactive Protein Total Protein Albumin Triglycerides Ur Specific [place] Urine Creatinine Crossmatch 06/30/21 06/30/21 06/30/21 11:36 16:24 22:44 WBC RBC Hgb Hct MCV MCH RDW Plt Count Lymph % (Auto) [place] % (Auto) Lymph # (Auto) [place] # (Auto) Seg Neutrophils % Seg Neuts % (Manual) Lymphocytes % (Manual) Monocytes % (Manual) Basophils % (Manual) Seg Neutrophils # Seg Neutrophils # Man Lymphocytes # (Manual) Monocytes # (Manual) PT INR APTT Fibrinogen D-Dimer ABG pH POC ABG pCO2 POC ABG pO2 ABG pO2 ABG HCO3 ABG O2 Saturation ABG Base Excess ABG Hemoglobin ABG Oxyhemoglobin Oxyhemoglobin Sodium Potassium Chloride Carbon Dioxide BUN Creatinine Glucose POC Glucose 154 H 208 H 174 H Lactic Acid Calcium Phosphorus Magnesium AST ALT Alkaline Phosphatase C-Reactive Protein Total Protein Albumin Triglycerides Ur Specific [place] Urine Creatinine Crossmatch 07/01/21 07/01/21 07/01/21 05:29 05:29 05:54 WBC 11.9 H RBC 3.00 L Hgb 8.1 L Hct 24.4 L MCV MCH 27 L RDW 21.7 H Plt Count Lymph % (Auto) [place] % (Auto) Lymph # (Auto) [place] # (Auto) Seg Neutrophils % Seg Neuts % (Manual) Lymphocytes % (Manual) Monocytes % (Manual) Basophils % (Manual) Seg Neutrophils # Seg Neutrophils # Man Lymphocytes # (Manual) Monocytes # (Manual) PT INR APTT Fibrinogen D-Dimer ABG pH POC ABG pCO2 POC ABG pO2 ABG pO2 ABG HCO3 ABG O2 Saturation ABG Base Excess ABG Hemoglobin ABG Oxyhemoglobin Oxyhemoglobin Sodium Potassium Chloride Carbon Dioxide BUN Creatinine Glucose 177 H POC Glucose 170 H Lactic Acid Calcium Phosphorus Magnesium AST ALT Alkaline Phosphatase C-Reactive Protein Total Protein Albumin Triglycerides Ur Specific [place] Urine Creatinine Crossmatch 07/01/21 07/02/21 07/02/21 10:54 05:05 10:18 WBC RBC Hgb Hct MCV MCH RDW Plt Count Lymph % (Auto) [place] % (Auto) Lymph # (Auto) [place] # (Auto) Seg Neutrophils % Seg Neuts % (Manual) Lymphocytes % (Manual) Monocytes % (Manual) Basophils % (Manual) Seg Neutrophils # Seg Neutrophils # Man Lymphocytes # (Manual) Monocytes # (Manual) PT INR APTT Fibrinogen D-Dimer ABG pH 7.488 H POC ABG pCO2 POC ABG pO2 ABG pO2 97.2 H ABG HCO3 27.1 H ABG O2 Saturation ABG Base Excess 3.5 H ABG Hemoglobin 7.9 L ABG Oxyhemoglobin Oxyhemoglobin Sodium Potassium Chloride Carbon Dioxide BUN Creatinine Glucose POC Glucose 184 H 182 H Lactic Acid Calcium Phosphorus Magnesium AST ALT Alkaline Phosphatase C-Reactive Protein Total Protein Albumin Triglycerides Ur Specific [place] Urine Creatinine Crossmatch 07/02/21 07/02/21 07/02/21 12:14 16:18 22:27 WBC RBC Hgb Hct MCV MCH RDW Plt Count Lymph % (Auto) [place] % (Auto) Lymph # (Auto) [place] # (Auto) Seg Neutrophils % Seg Neuts % (Manual) Lymphocytes % (Manual) Monocytes % (Manual) Basophils % (Manual) Seg Neutrophils # Seg Neutrophils # Man Lymphocytes # (Manual) Monocytes # (Manual) PT INR APTT Fibrinogen D-Dimer ABG pH 7.199 L* POC ABG pCO2 POC ABG pO2 ABG pO2 104.5 H ABG HCO3 30.3 H ABG O2 Saturation ABG Base Excess ABG Hemoglobin 9.8 L ABG Oxyhemoglobin Oxyhemoglobin 94.6 L Sodium Potassium Chloride Carbon Dioxide BUN Creatinine Glucose POC Glucose 184 H 194 H Lactic Acid Calcium Phosphorus Magnesium AST ALT Alkaline Phosphatase C-Reactive Protein Total Protein Albumin Triglycerides Ur Specific [place] Urine Creatinine Crossmatch 07/03/21 07/03/21 07/03/21 09:47 10:44 11:24 WBC RBC 3.01 L Hgb 8.3 L Hct 24.3 L MCV MCH RDW 21.7 H Plt Count Lymph % (Auto) 8.4 L [place] % (Auto) Lymph # (Auto) 0.8 L [place] # (Auto) Seg Neutrophils % 80.6 H Seg Neuts % (Manual) Lymphocytes % (Manual) Monocytes % (Manual) Basophils % (Manual) Seg Neutrophils # Seg Neutrophils # Man Lymphocytes # (Manual) Monocytes # (Manual) PT INR APTT Fibrinogen D-Dimer ABG pH POC ABG pCO2 POC ABG pO2 ABG pO2 ABG HCO3 ABG O2 Saturation ABG Base Excess ABG Hemoglobin ABG Oxyhemoglobin Oxyhemoglobin Sodium Potassium 3.0 L Chloride Carbon Dioxide BUN Creatinine Glucose 200 H POC Glucose 180 H Lactic Acid Calcium 8.3 L Phosphorus Magnesium AST ALT Alkaline Phosphatase C-Reactive Protein Total Protein Albumin Triglycerides Ur Specific [place] Urine Creatinine Crossmatch 07/03/21 07/03/21 07/03/21 16:34 22:14 22:15 WBC RBC Hgb Hct MCV MCH RDW Plt Count Lymph % (Auto) [place] % (Auto) Lymph # (Auto) [place] # (Auto) Seg Neutrophils % Seg Neuts % (Manual) Lymphocytes % (Manual) Monocytes % (Manual) Basophils % (Manual) Seg Neutrophils # Seg Neutrophils # Man Lymphocytes # (Manual) Monocytes # (Manual) PT INR APTT Fibrinogen D-Dimer ABG pH POC ABG pCO2 POC ABG pO2 ABG pO2 ABG HCO3 ABG O2 Saturation ABG Base Excess ABG Hemoglobin ABG Oxyhemoglobin Oxyhemoglobin Sodium Potassium Chloride Carbon Dioxide BUN Creatinine Glucose POC Glucose 165 H 174 H 180 H Lactic Acid Calcium Phosphorus Magnesium AST ALT Alkaline Phosphatase C-Reactive Protein Total Protein Albumin Triglycerides Ur Specific [place] Urine Creatinine Crossmatch 07/04/21 07/04/21 07/04/21 00:28 01:44 05:07 WBC RBC Hgb Hct MCV MCH RDW Plt Count Lymph % (Auto) [place] % (Auto) Lymph # (Auto) [place] # (Auto) Seg Neutrophils % Seg Neuts % (Manual) Lymphocytes % (Manual) Monocytes % (Manual) Basophils % (Manual) Seg Neutrophils # Seg Neutrophils # Man Lymphocytes # (Manual) Monocytes # (Manual) PT INR APTT Fibrinogen D-Dimer ABG pH POC ABG pCO2 POC ABG pO2 ABG pO2 107.7 H ABG HCO3 26.7 H ABG O2 Saturation ABG Base Excess ABG Hemoglobin 7.5 L ABG Oxyhemoglobin Oxyhemoglobin Sodium Potassium Chloride Carbon Dioxide BUN Creatinine Glucose POC Glucose 246 H 179 H Lactic Acid Calcium Phosphorus Magnesium AST ALT Alkaline Phosphatase C-Reactive Protein Total Protein Albumin Triglycerides Ur Specific [place] Urine Creatinine Crossmatch 07/04/21 07/04/21 07/04/21 05:13 05:13 10:52 WBC RBC 3.12 L Hgb 8.5 L Hct 25.2 L MCV MCH 27 L RDW 21.3 H Plt Count Lymph % (Auto) 6.1 L [place] % (Auto) Lymph # (Auto) 0.6 L [place] # (Auto) Seg Neutrophils % 85.0 H Seg Neuts % (Manual) Lymphocytes % (Manual) Monocytes % (Manual) Basophils % (Manual) Seg Neutrophils # 8.0 H Seg Neutrophils # Man Lymphocytes # (Manual) Monocytes # (Manual) PT INR APTT Fibrinogen D-Dimer ABG pH POC ABG pCO2 POC ABG pO2 ABG pO2 ABG HCO3 ABG O2 Saturation ABG Base Excess ABG Hemoglobin ABG Oxyhemoglobin Oxyhemoglobin Sodium Potassium 3.4 L Chloride Carbon Dioxide BUN Creatinine Glucose 205 H POC Glucose 146 H Lactic Acid Calcium Phosphorus Magnesium AST ALT Alkaline Phosphatase C-Reactive Protein Total Protein Albumin Triglycerides Ur Specific [place] Urine Creatinine Crossmatch 07/04/21 07/04/21 07/05/21 16:22 23:52 04:38 WBC RBC Hgb Hct MCV MCH RDW Plt Count Lymph % (Auto) [place] % (Auto) Lymph # (Auto) [place] # (Auto) Seg Neutrophils % Seg Neuts % (Manual) Lymphocytes % (Manual) Monocytes % (Manual) Basophils % (Manual) Seg Neutrophils # Seg Neutrophils # Man Lymphocytes # (Manual) Monocytes # (Manual) PT INR APTT Fibrinogen D-Dimer ABG pH POC ABG pCO2 POC ABG pO2 ABG pO2 ABG HCO3 ABG O2 Saturation ABG Base Excess ABG Hemoglobin ABG Oxyhemoglobin Oxyhemoglobin Sodium Potassium 3.0 L Chloride Carbon Dioxide BUN 18 H Creatinine Glucose 174 H POC Glucose 154 H 193 H Lactic Acid Calcium Phosphorus 2.20 L Magnesium AST ALT Alkaline Phosphatase C-Reactive Protein Total Protein Albumin Triglycerides Ur Specific [place] Urine Creatinine Crossmatch 07/05/21 07/05/21 07/05/21 04:38 05:15 12:35 WBC RBC 2.95 L Hgb 7.8 L Hct 23.9 L MCV MCH 27 L RDW 21.0 H Plt Count Lymph % (Auto) [place] % (Auto) Lymph # (Auto) [place] # (Auto) Seg Neutrophils % Seg Neuts % (Manual) Lymphocytes % (Manual) Monocytes % (Manual) Basophils % (Manual) Seg Neutrophils # Seg Neutrophils # Man Lymphocytes # (Manual) Monocytes # (Manual) PT INR APTT Fibrinogen D-Dimer ABG pH POC ABG pCO2 POC ABG pO2 ABG pO2 ABG HCO3 ABG O2 Saturation ABG Base Excess ABG Hemoglobin ABG Oxyhemoglobin Oxyhemoglobin Sodium Potassium Chloride Carbon Dioxide BUN Creatinine Glucose POC Glucose 163 H 121 H Lactic Acid Calcium Phosphorus Magnesium AST ALT Alkaline Phosphatase C-Reactive Protein Total Protein Albumin Triglycerides Ur Specific [place] Urine Creatinine Crossmatch 07/05/21 07/05/21 07/05/21 18:27 21:05 23:11 WBC RBC Hgb Hct MCV MCH RDW Plt Count Lymph % (Auto) [place] % (Auto) Lymph # (Auto) [place] # (Auto) Seg Neutrophils % Seg Neuts % (Manual) Lymphocytes % (Manual) Monocytes % (Manual) Basophils % (Manual) Seg Neutrophils # Seg Neutrophils # Man Lymphocytes # (Manual) Monocytes # (Manual) PT INR APTT Fibrinogen D-Dimer ABG pH POC ABG pCO2 POC ABG pO2 ABG pO2 ABG HCO3 ABG O2 Saturation ABG Base Excess ABG Hemoglobin ABG Oxyhemoglobin Oxyhemoglobin Sodium Potassium Chloride Carbon Dioxide BUN Creatinine Glucose POC Glucose 183 H 170 H 184 H Lactic Acid Calcium Phosphorus Magnesium AST ALT Alkaline Phosphatase C-Reactive Protein Total Protein Albumin Triglycerides Ur Specific [place] Urine Creatinine Crossmatch 07/06/21 07/06/21 07/06/21 04:39 05:13 12:12 WBC RBC Hgb Hct MCV MCH RDW Plt Count Lymph % (Auto) [place] % (Auto) Lymph # (Auto) [place] # (Auto) Seg Neutrophils % Seg Neuts % (Manual) Lymphocytes % (Manual) Monocytes % (Manual) Basophils % (Manual) Seg Neutrophils # Seg Neutrophils # Man Lymphocytes # (Manual) Monocytes # (Manual) PT INR APTT Fibrinogen D-Dimer ABG pH POC ABG pCO2 POC ABG pO2 ABG pO2 ABG HCO3 ABG O2 Saturation ABG Base Excess ABG Hemoglobin ABG Oxyhemoglobin Oxyhemoglobin Sodium Potassium 3.4 L Chloride Carbon Dioxide BUN Creatinine Glucose 180 H POC Glucose 183 H 153 H Lactic Acid Calcium Phosphorus Magnesium AST ALT Alkaline Phosphatase C-Reactive Protein Total Protein Albumin Triglycerides Ur Specific [place] Urine Creatinine Crossmatch 07/06/21 07/06/21 07/07/21 17:30 21:44 00:22 WBC RBC Hgb Hct MCV MCH RDW Plt Count Lymph % (Auto) [place] % (Auto) Lymph # (Auto) [place] # (Auto) Seg Neutrophils % Seg Neuts % (Manual) Lymphocytes % (Manual) Monocytes % (Manual) Basophils % (Manual) Seg Neutrophils # Seg Neutrophils # Man Lymphocytes # (Manual) Monocytes # (Manual) PT INR APTT Fibrinogen D-Dimer ABG pH POC ABG pCO2 POC ABG pO2 ABG pO2 ABG HCO3 ABG O2 Saturation ABG Base Excess ABG Hemoglobin ABG Oxyhemoglobin Oxyhemoglobin Sodium Potassium Chloride Carbon Dioxide BUN Creatinine Glucose POC Glucose 166 H 155 H 188 H Lactic Acid Calcium Phosphorus Magnesium AST ALT Alkaline Phosphatase C-Reactive Protein Total Protein Albumin Triglycerides Ur Specific [place] Urine Creatinine Crossmatch 07/07/21 07/07/21 07/07/21 04:10 05:48 07:39 WBC RBC Hgb Hct MCV MCH RDW Plt Count Lymph % (Auto) [place] % (Auto) Lymph # (Auto) [place] # (Auto) Seg Neutrophils % Seg Neuts % (Manual) Lymphocytes % (Manual) Monocytes % (Manual) Basophils % (Manual) Seg Neutrophils # Seg Neutrophils # Man Lymphocytes # (Manual) Monocytes # (Manual) PT INR APTT Fibrinogen D-Dimer ABG pH POC ABG pCO2 POC ABG pO2 ABG pO2 ABG HCO3 ABG O2 Saturation ABG Base Excess ABG Hemoglobin ABG Oxyhemoglobin Oxyhemoglobin Sodium Potassium 3.1 L Chloride Carbon Dioxide BUN Creatinine Glucose 138 H POC Glucose 141 H 147 H Lactic Acid Calcium Phosphorus 2.40 L Magnesium AST ALT Alkaline Phosphatase C-Reactive Protein Total Protein Albumin Triglycerides Ur Specific [place] Urine Creatinine Crossmatch 07/07/21 07/07/21 07/07/21 11:17 16:06 23:58 WBC RBC Hgb Hct MCV MCH RDW Plt Count Lymph % (Auto) [place] % (Auto) Lymph # (Auto) [place] # (Auto) Seg Neutrophils % Seg Neuts % (Manual) Lymphocytes % (Manual) Monocytes % (Manual) Basophils % (Manual) Seg Neutrophils # Seg Neutrophils # Man Lymphocytes # (Manual) Monocytes # (Manual) PT INR APTT Fibrinogen D-Dimer ABG pH POC ABG pCO2 POC ABG pO2 ABG pO2 ABG HCO3 ABG O2 Saturation ABG Base Excess ABG Hemoglobin ABG Oxyhemoglobin Oxyhemoglobin Sodium Potassium Chloride Carbon Dioxide BUN Creatinine Glucose POC Glucose 161 H 173 H 198 H Lactic Acid Calcium Phosphorus Magnesium AST ALT Alkaline Phosphatase C-Reactive Protein Total Protein Albumin Triglycerides Ur Specific [place] Urine Creatinine Crossmatch 07/08/21 07/08/21 07/08/21 04:20 04:20 06:12 WBC RBC 3.16 L Hgb 8.3 L Hct 25.1 L MCV MCH 26 L RDW 21.0 H Plt Count Lymph % (Auto) [place] % (Auto) Lymph # (Auto) [place] # (Auto) Seg Neutrophils % Seg Neuts % (Manual) Lymphocytes % (Manual) Monocytes % (Manual) Basophils % (Manual) Seg Neutrophils # Seg Neutrophils # Man Lymphocytes # (Manual) Monocytes # (Manual) PT INR APTT Fibrinogen D-Dimer ABG pH POC ABG pCO2 POC ABG pO2 ABG pO2 ABG HCO3 ABG O2 Saturation ABG Base Excess ABG Hemoglobin ABG Oxyhemoglobin Oxyhemoglobin Sodium Potassium Chloride Carbon Dioxide BUN Creatinine Glucose 183 H POC Glucose 189 H Lactic Acid Calcium Phosphorus Magnesium AST ALT Alkaline Phosphatase C-Reactive Protein Total Protein Albumin Triglycerides Ur Specific [place] Urine Creatinine Crossmatch 07/08/21 07/08/21 07/08/21 11:33 18:04 21:42 WBC RBC Hgb Hct MCV MCH RDW Plt Count Lymph % (Auto) [place] % (Auto) Lymph # (Auto) [place] # (Auto) Seg Neutrophils % Seg Neuts % (Manual) Lymphocytes % (Manual) Monocytes % (Manual) Basophils % (Manual) Seg Neutrophils # Seg Neutrophils # Man Lymphocytes # (Manual) Monocytes # (Manual) PT INR APTT Fibrinogen D-Dimer ABG pH POC ABG pCO2 POC ABG pO2 ABG pO2 ABG HCO3 ABG O2 Saturation ABG Base Excess ABG Hemoglobin ABG Oxyhemoglobin Oxyhemoglobin Sodium Potassium Chloride Carbon Dioxide BUN Creatinine Glucose POC Glucose 161 H 128 H 160 H Lactic Acid Calcium Phosphorus Magnesium AST ALT Alkaline Phosphatase C-Reactive Protein Total Protein Albumin Triglycerides Ur Specific [place] Urine Creatinine Crossmatch 07/09/21 07/09/21 07/09/21 06:03 06:10 06:10 WBC RBC 2.96 L Hgb 7.8 L Hct 23.5 L MCV MCH 27 L RDW 20.9 H Plt Count Lymph % (Auto) [place] % (Auto) Lymph # (Auto) [place] # (Auto) Seg Neutrophils % Seg Neuts % (Manual) Lymphocytes % (Manual) Monocytes % (Manual) Basophils % (Manual) Seg Neutrophils # Seg Neutrophils # Man Lymphocytes # (Manual) Monocytes # (Manual) PT INR APTT Fibrinogen D-Dimer ABG pH POC ABG pCO2 POC ABG pO2 ABG pO2 ABG HCO3 ABG O2 Saturation ABG Base Excess ABG Hemoglobin ABG Oxyhemoglobin Oxyhemoglobin Sodium Potassium Chloride Carbon Dioxide BUN Creatinine Glucose 168 H POC Glucose 174 H Lactic Acid Calcium 8.2 L Phosphorus Magnesium AST ALT Alkaline Phosphatase C-Reactive Protein Total Protein Albumin Triglycerides Ur Specific [place] Urine Creatinine Crossmatch 07/09/21 07/09/21 07/09/21 11:45 18:45 21:33 WBC RBC Hgb Hct MCV MCH RDW Plt Count Lymph % (Auto) [place] % (Auto) Lymph # (Auto) [place] # (Auto) Seg Neutrophils % Seg Neuts % (Manual) Lymphocytes % (Manual) Monocytes % (Manual) Basophils % (Manual) Seg Neutrophils # Seg Neutrophils # Man Lymphocytes # (Manual) Monocytes # (Manual) PT INR APTT Fibrinogen D-Dimer ABG pH POC ABG pCO2 POC ABG pO2 ABG pO2 ABG HCO3 ABG O2 Saturation ABG Base Excess ABG Hemoglobin ABG Oxyhemoglobin Oxyhemoglobin Sodium Potassium Chloride Carbon Dioxide BUN Creatinine Glucose POC Glucose 148 H 187 H 156 H Lactic Acid Calcium Phosphorus Magnesium AST ALT Alkaline Phosphatase C-Reactive Protein Total Protein Albumin Triglycerides Ur Specific [place] Urine Creatinine Crossmatch 07/10/21 07/10/21 07/10/21 00:01 05:24 11:12 WBC RBC Hgb Hct MCV MCH RDW Plt Count Lymph % (Auto) [place] % (Auto) Lymph # (Auto) [place] # (Auto) Seg Neutrophils % Seg Neuts % (Manual) Lymphocytes % (Manual) Monocytes % (Manual) Basophils % (Manual) Seg Neutrophils # Seg Neutrophils # Man Lymphocytes # (Manual) Monocytes # (Manual) PT INR APTT Fibrinogen D-Dimer ABG pH POC ABG pCO2 POC ABG pO2 ABG pO2 ABG HCO3 ABG O2 Saturation ABG Base Excess ABG Hemoglobin ABG Oxyhemoglobin Oxyhemoglobin Sodium Potassium Chloride Carbon Dioxide BUN Creatinine Glucose POC Glucose 191 H 203 H 174 H Lactic Acid Calcium Phosphorus Magnesium AST ALT Alkaline Phosphatase C-Reactive Protein Total Protein Albumin Triglycerides Ur Specific [place] Urine Creatinine Crossmatch 07/10/21 07/10/21 07/10/21 15:56 20:58 23:54 WBC RBC Hgb Hct MCV MCH RDW Plt Count Lymph % (Auto) [place] % (Auto) Lymph # (Auto) [place] # (Auto) Seg Neutrophils % Seg Neuts % (Manual) Lymphocytes % (Manual) Monocytes % (Manual) Basophils % (Manual) Seg Neutrophils # Seg Neutrophils # Man Lymphocytes # (Manual) Monocytes # (Manual) PT INR APTT Fibrinogen D-Dimer ABG pH POC ABG pCO2 POC ABG pO2 ABG pO2 ABG HCO3 ABG O2 Saturation ABG Base Excess ABG Hemoglobin ABG Oxyhemoglobin Oxyhemoglobin Sodium Potassium Chloride Carbon Dioxide BUN Creatinine Glucose POC Glucose 182 H 165 H 196 H Lactic Acid Calcium Phosphorus Magnesium AST ALT Alkaline Phosphatase C-Reactive Protein Total Protein Albumin Triglycerides Ur Specific [place] Urine Creatinine Crossmatch 07/11/21 07/11/21 07/11/21 04:04 04:04 05:34 WBC RBC 3.50 L Hgb 8.7 L Hct 27.6 L MCV MCH 25 L RDW 20.6 H Plt Count Lymph % (Auto) [place] % (Auto) Lymph # (Auto) [place] # (Auto) Seg Neutrophils % Seg Neuts % (Manual) Lymphocytes % (Manual) Monocytes % (Manual) Basophils % (Manual) 2.0 H Seg Neutrophils # Seg Neutrophils # Man Lymphocytes # (Manual) 0.8 L Monocytes # (Manual) PT INR APTT Fibrinogen D-Dimer ABG pH POC ABG pCO2 POC ABG pO2 ABG pO2 ABG HCO3 ABG O2 Saturation ABG Base Excess ABG Hemoglobin ABG Oxyhemoglobin Oxyhemoglobin Sodium Potassium 3.3 L Chloride Carbon Dioxide BUN Creatinine Glucose 199 H POC Glucose 191 H Lactic Acid Calcium Phosphorus Magnesium AST ALT Alkaline Phosphatase C-Reactive Protein Total Protein Albumin Triglycerides Ur Specific [place] Urine Creatinine Crossmatch 07/11/21 07/11/21 07/11/21 11:49 15:57 21:33 WBC RBC Hgb Hct MCV MCH RDW Plt Count Lymph % (Auto) [place] % (Auto) Lymph # (Auto) [place] # (Auto) Seg Neutrophils % Seg Neuts % (Manual) Lymphocytes % (Manual) Monocytes % (Manual) Basophils % (Manual) Seg Neutrophils # Seg Neutrophils # Man Lymphocytes # (Manual) Monocytes # (Manual) PT INR APTT Fibrinogen D-Dimer ABG pH POC ABG pCO2 POC ABG pO2 ABG pO2 ABG HCO3 ABG O2 Saturation ABG Base Excess ABG Hemoglobin ABG Oxyhemoglobin Oxyhemoglobin Sodium Potassium Chloride Carbon Dioxide BUN Creatinine Glucose POC Glucose 195 H 207 H 192 H Lactic Acid Calcium Phosphorus Magnesium AST ALT Alkaline Phosphatase C-Reactive Protein Total Protein Albumin Triglycerides Ur Specific [place] Urine Creatinine Crossmatch 07/12/21 07/12/21 07/12/21 00:04 05:54 11:53 WBC RBC Hgb Hct MCV MCH RDW Plt Count Lymph % (Auto) [place] % (Auto) Lymph # (Auto) [place] # (Auto) Seg Neutrophils % Seg Neuts % (Manual) Lymphocytes % (Manual) Monocytes % (Manual) Basophils % (Manual) Seg Neutrophils # Seg Neutrophils # Man Lymphocytes # (Manual) Monocytes # (Manual) PT INR APTT Fibrinogen D-Dimer ABG pH POC ABG pCO2 POC ABG pO2 ABG pO2 ABG HCO3 ABG O2 Saturation ABG Base Excess ABG Hemoglobin ABG Oxyhemoglobin Oxyhemoglobin Sodium Potassium Chloride Carbon Dioxide BUN Creatinine Glucose POC Glucose 189 H 220 H 209 H Lactic Acid Calcium Phosphorus Magnesium AST ALT Alkaline Phosphatase C-Reactive Protein Total Protein Albumin Triglycerides Ur Specific [place] Urine Creatinine Crossmatch 07/12/21 07/13/21 07/13/21 23:48 05:55 11:36 WBC RBC Hgb Hct MCV MCH RDW Plt Count Lymph % (Auto) [place] % (Auto) Lymph # (Auto) [place] # (Auto) Seg Neutrophils % Seg Neuts % (Manual) Lymphocytes % (Manual) Monocytes % (Manual) Basophils % (Manual) Seg Neutrophils # Seg Neutrophils # Man Lymphocytes # (Manual) Monocytes # (Manual) PT INR APTT Fibrinogen D-Dimer ABG pH POC ABG pCO2 POC ABG pO2 ABG pO2 ABG HCO3 ABG O2 Saturation ABG Base Excess ABG Hemoglobin ABG Oxyhemoglobin Oxyhemoglobin Sodium Potassium Chloride Carbon Dioxide BUN Creatinine Glucose POC Glucose 246 H 158 H 156 H Lactic Acid Calcium Phosphorus Magnesium AST ALT Alkaline Phosphatase C-Reactive Protein Total Protein Albumin Triglycerides Ur Specific [place] Urine Creatinine Crossmatch 07/13/21 07/13/21 07/14/21 17:28 23:43 05:52 WBC RBC Hgb Hct MCV MCH RDW Plt Count Lymph % (Auto) [place] % (Auto) Lymph # (Auto) [place] # (Auto) Seg Neutrophils % Seg Neuts % (Manual) Lymphocytes % (Manual) Monocytes % (Manual) Basophils % (Manual) Seg Neutrophils # Seg Neutrophils # Man Lymphocytes # (Manual) Monocytes # (Manual) PT INR APTT Fibrinogen D-Dimer ABG pH POC ABG pCO2 POC ABG pO2 ABG pO2 ABG HCO3 ABG O2 Saturation ABG Base Excess ABG Hemoglobin ABG Oxyhemoglobin Oxyhemoglobin Sodium Potassium Chloride Carbon Dioxide BUN Creatinine Glucose POC Glucose 212 H 210 H 171 H Lactic Acid Calcium Phosphorus Magnesium AST ALT Alkaline Phosphatase C-Reactive Protein Total Protein Albumin Triglycerides Ur Specific [place] Urine Creatinine Crossmatch 07/14/21 07/14/21 07/14/21 11:59 16:41 23:42 WBC RBC Hgb Hct MCV MCH RDW Plt Count Lymph % (Auto) [place] % (Auto) Lymph # (Auto) [place] # (Auto) Seg Neutrophils % Seg Neuts % (Manual) Lymphocytes % (Manual) Monocytes % (Manual) Basophils % (Manual) Seg Neutrophils # Seg Neutrophils # Man Lymphocytes # (Manual) Monocytes # (Manual) PT INR APTT Fibrinogen D-Dimer ABG pH POC ABG pCO2 POC ABG pO2 ABG pO2 ABG HCO3 ABG O2 Saturation ABG Base Excess ABG Hemoglobin ABG Oxyhemoglobin Oxyhemoglobin Sodium Potassium Chloride Carbon Dioxide BUN Creatinine Glucose POC Glucose 151 H 153 H 171 H Lactic Acid Calcium Phosphorus Magnesium AST ALT Alkaline Phosphatase C-Reactive Protein Total Protein Albumin Triglycerides Ur Specific [place] Urine Creatinine Crossmatch 07/15/21 07/15/21 07/15/21 05:40 12:49 16:28 WBC RBC Hgb Hct MCV MCH RDW Plt Count Lymph % (Auto) [place] % (Auto) Lymph # (Auto) [place] # (Auto) Seg Neutrophils % Seg Neuts % (Manual) Lymphocytes % (Manual) Monocytes % (Manual) Basophils % (Manual) Seg Neutrophils # Seg Neutrophils # Man Lymphocytes # (Manual) Monocytes # (Manual) PT INR APTT Fibrinogen D-Dimer ABG pH POC ABG pCO2 POC ABG pO2 ABG pO2 ABG HCO3 ABG O2 Saturation ABG Base Excess ABG Hemoglobin ABG Oxyhemoglobin Oxyhemoglobin Sodium Potassium Chloride Carbon Dioxide BUN Creatinine Glucose POC Glucose 224 H 219 H 226 H Lactic Acid Calcium Phosphorus Magnesium AST ALT Alkaline Phosphatase C-Reactive Protein Total Protein Albumin Triglycerides Ur Specific [place] Urine Creatinine Crossmatch 07/15/21 07/16/21 07/16/21 20:03 00:14 05:18 WBC RBC Hgb Hct MCV MCH RDW Plt Count Lymph % (Auto) [place] % (Auto) Lymph # (Auto) [place] # (Auto) Seg Neutrophils % Seg Neuts % (Manual) Lymphocytes % (Manual) Monocytes % (Manual) Basophils % (Manual) Seg Neutrophils # Seg Neutrophils # Man Lymphocytes # (Manual) Monocytes # (Manual) PT INR APTT Fibrinogen D-Dimer ABG pH POC ABG pCO2 POC ABG pO2 ABG pO2 ABG HCO3 ABG O2 Saturation ABG Base Excess ABG Hemoglobin ABG Oxyhemoglobin Oxyhemoglobin Sodium Potassium Chloride Carbon Dioxide BUN Creatinine Glucose POC Glucose 147 H 196 H 212 H Lactic Acid Calcium Phosphorus Magnesium AST ALT Alkaline Phosphatase C-Reactive Protein Total Protein Albumin Triglycerides Ur Specific [place] Urine Creatinine Crossmatch 07/16/21 07/16/21 09:19 09:19 WBC 11.1 H RBC 3.52 L Hgb 8.4 L Hct 26.7 L MCV 76 L MCH 24 L RDW 21.8 H Plt Count 472 H Lymph % (Auto) [place] % (Auto) Lymph # (Auto) [place] # (Auto) Seg Neutrophils % Seg Neuts % (Manual) Lymphocytes % (Manual) Monocytes % (Manual) Basophils % (Manual) Seg Neutrophils # Seg Neutrophils # Man Lymphocytes # (Manual) Monocytes # (Manual) PT INR APTT Fibrinogen D-Dimer ABG pH POC ABG pCO2 POC ABG pO2 ABG pO2 ABG HCO3 ABG O2 Saturation ABG Base Excess ABG Hemoglobin ABG Oxyhemoglobin Oxyhemoglobin Sodium Potassium 3.3 L Chloride 96.0 L Carbon Dioxide BUN Creatinine 0.5 L Glucose 207 H POC Glucose Lactic Acid Calcium Phosphorus Magnesium AST ALT Alkaline Phosphatase C-Reactive Protein Total Protein Albumin Triglycerides Ur Specific [place] Urine Creatinine Crossmatch
[2021-07-16 11:27] LABS: Total Cells Counted 100
[2021-07-16 11:28] LABS: Anisocytosis 1+; Hypochromasia 2+
[2021-07-16 11:29] LABS: Ovalocytes Few; Platelet Estimate Consistent w Auto; Poikilocytosis 1+; Tear Drop Cells Few
[2021-07-16] MEDS ORDERED: levoFLOXacin 500 MG TAB PO SCH (12:00)
--- NOTE | 2021-07-16 12:04 | Discharge Summary ---
Providers - Providers Date of Admission: 06/11/21 20:42 Attending physician: MIKE CORTEZ MD 06/11/21 19:10 Consult to Physician [CONS] Stat Comment: Consulting Provider: LYLA BERNSTEIN Physician Instructions: Reason For Exam: surgical airway needed 06/11/21 20:42 Consult to Physician [CONS] Urgent Comment: Consulting Provider: RAYMON COURTNEY Physician Instructions: Reason For Exam: Acute respiratory failure with hypoxia, Jeremiah's A 06/12/21 09:00 Consult to Physician [CONS] Routine Comment: Consulting Provider: BRYCE BURNETTE Physician Instructions: Reason For Exam: ludwings angina, tooth caries 06/13/21 17:13 Consult to PICC Line RN [CONS] Routine Reason For Exam: needs cvl, need femoral out Type Line:: PICC 06/15/21 10:33 PICC Line Insertion [Consult to PICC Line RN] [CONS] Stat Reason For Exam: PICC line for nutrition and abx's Type Line:: PICC 06/19/21 19:20 Consult to Dietitian/Nutrition [CONS] Routine Physician Instructions: Assess nutrtn needs, initiate, modify, manage TF Reason For Exam: Reason for Consult: Write/Manage Tube Feeding Reason for Consult: Write/Manage Tube Feeding 06/20/21 10:56 Consult to Dietitian/Nutrition [CONS] Routine Physician Instructions: Reason For Exam: Reason for Consult: Write/Manage Tube Feeding 06/24/21 08:03 Physical Therapy Evaluation and Treat [CONS] Routine Comment: Reason For Exam: Debility 06/27/21 10:31 Speech Therapy Eval for Passy-Ann Valve [CONS] Routine Reason For Exam: Shiley #10 07/05/21 11:53 Speech Therapy Eval for Passy-[place] Valve [CONS] Routine Reason For Exam: PMV evaluation 07/08/21 09:34 Consult to Physician [CONS] Routine Comment: Consulting Provider: MARVIN COTTER Physician Instructions: Reason For Exam: ? mysthenia gravis 07/15/21 09:37 Occupational Therapy Evaluate and Treat [CONS] Routine Comment: Reason For Exam: Debility 07/16/21 08:59 Consult to Physician [CONS] Routine Comment: Consulting Provider: PAOLA UNGER Physician Instructions: Reason For Exam: depression secondary to chronic illness Primary care physician: CHRIS PEPPER Hospitalization Reason for admission: throat and madibula swelling Condition: Stable Hospital course: This is a 76-year-old female with HTN, Coumadin use, dental caries, PVD s/p stenting to right leg, DM, arthritis, depression, gout and ? Pulmonary hypertension admitted with Jeremiah's angina s/p emergent cric with bleeding, right sided pneumothorax, supratherapeutic INR, hypernatremia, hyperchloremia, severe metabolic acidosis, hyperglycemia and hypocalcemia Hospital Course: 07/01: Transfer from ICU on 06/30. Patient was stable with a trach and T-piece on 5 L. Tolerating tube feeds. 07/02: Patient remains on T-piece with trach in place. On 5 L of O2. She is alert and responds appropriately but not well due to trach tube. Tolerating tube feeds. Appears comfortable. No complaints. No new events reported. Case management reports patient with plans for LTAC placement. 07/03: Patient remains on T-piece with trach in place. On 5 L of O2. Patient tolerating tube feeds. We will check CT of head, neck and chest per pulmonary and general surgery recommendations based on CBC this morning. If leukocytosis persists we will proceed with studies. Patient remains afebrile today. 07/04: s/p X1 dose of IV lasix, patient is now stable on the T-piece via trach at 28% and 5L. Patient remains afebrile, leukocytosis improved, and CXR wiht no significant change. PRN [place] added for pain management. Electrolytes repleted 07/05: Remains stable on T-piece. Complaint of lack of sleep and tiredness this am, Trazadone and melatonin added for sleep. Continue PT- increase mobility and possibly OOB to chair today. Continue pain management. Electrolytes repleted. 07/06: Rested overnight. And continue to tolerate T-piece at 28% and 5L. Continue trazadone and melatonin at night for sleep and pain control with PRN analgesia. Discussed possibility of down sizing the trach to an 8 Shiley with General Surgery. Per Surgery downsizing would not be easy nor safe at this time. Plan to order #10 PSMV instead. Case management to arrange possible placement SNF vs subacute rehab. 07/07: JEREMIAS overnight. New report of BLE pain and swelling, per patient was on gabapentin and smooth muscle relaxers at home. BLE did appear swollen with palpable pedal pulses. Will get BLE doppler, resume gabapentin, and continue PRN analgesic for pain control. Continue mobility/strenght and conditioning with PT. Electrolytes repleted, repeat labs in the am. 07/08: Patient scheduled to have a downsize of Shiley today in the OR with surgery, surgery also requested neurology consult for MS work-up. Lidocaine patches to bilateral lower extremities discontinued. 07/09: Transfer to [facility]. s/p trach downsize by surgery. Will need aggressive PT/OT/ST. Possible eval by ST for MPV. Placement now of concern. Will continue coordination with CM. Neuro: doubt MG. suspects myopathy likely ICU acquired from prolonged immobilization. Again she will require aggressive PT rehab. 07/10: Appears volume overloaded. Lasix 40 mg IV x 2 doses ordered. Will need continued aggressive PT. ST eval for PSMV (still has not arrived per notes). 07/11: CT brain negative. MRI appears to have been cancelled, unclear why. Nonetheless doubt primary neurological etiology for weakness...suspect ICU acquired weakness. Continue discharge planning, rehab/snf is likely disposition. Will continue to work along side . 07/12: Awaiting placement for snf. 07/13: Awaiting placement for snf. 07/14: Awaiting placement for snf. 07/14: Awaiting placement for snf. D/w CM on rounds this AM. Awaiting auth for placement. 07/16: Patient seen and examined today, no new complaints, intermittent low grade fever with mild elevated leukocytosis, started on levaquin precautionary considering chronic trach. She will need outpatient ENT evaluation and continued follow up with pulmonary physician for further outpatient management. Neuro: Acute pain, ICU acquired weakness/myopathy, r/o myasthenia gravis, h/o depression, arthritis -prn fent pushes -Avoid delirium -Reorientation as needed -Maintain sleep-wake cycle -PT consulted; recommends LTAC -Neurology consulted, appreciate recommendations -B12, A1c, CK, TSH pending -MRI brain to rule out bleeding and old watershed infarct -gabapentin Cardiac: S/p cardiac arrest, h/o htn, PVD s/p stenting Right leg -06/14 cardiac arrest with ROSC -S/p vasopressor support with Levophed and Fabian-Synephrine -Blood pressure monitoring per protocol -Antihypertensive regimen: Hydralazine 100 mg every 8 -06/13 Echocardiogram EF 65-70% Respiratory: Acute hypoxic respiratory failure, right pneumothorax -CCM consulted, appreciate recommendations -S/p emergent cricothyroidectomy with surgery with 8.00 ETT -s/p trach 06/19 with surgery s/p #10 Shiley -3/7 Shiley downsized to #8 -T-piece trials started 06/26 -ST: Unable to tolerate Passy-Ann valve on 06/28 but has since tolerated 10 min -misplaced PSMV during transport and awaiting replacement -s/p Right chest tube removed 06/29 -06/13 bronchoscopy showed possible blood clot in left lung which may be acting as mucous plug however it was left in place due to possible bleeding inside lung if removed. -CXR post cardiac arrest shows clearance of mucous plug -06/16 CT chest shows moderate right pneumothorax with collapse of right upper lobe, right thoracostomy tube terminates at the collapsed right upper lobe, bilateral bronchus opacities compatible with infectious/inflammatory etiology, bilateral small pleural effusion, extensive subcutaneous air, small fluid collection in the anterior mediastinum is nonspecific -VAP bundle -SPO2 monitoring GI: Protein calorie malnutrition -24 hours -1545 mL -PPI -BR: senna, colace -s/p TPN -Nutrition consult for tube feeding -S/p PEG : Urinary retention, acute kidney injury possibly secondary to vasomotor nephropathy (resolved) -Strict intake and output -Renally dose medications -Avoid nephrotoxic medications -Daily weights -Consider nephrology consult if worsens -S/p 7 L LR bolus -Replete potassium -Lujan catheter replaced due to urinary retention ID: 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 dental caries -CT neck with contrast showed a significant right floor of mild swelling with extension into the submandibular and submental spaces, significant thickening and inflammation involving the right pharyngeal wall, with the parapharyngeal and retropharyngeal spaces at the level of the thyroid cartilage, epiglottis significantly swollen and so are the aryepiglottic folds resulting in significant airway narrowing at this level, no lymphadenopathy, symmetric submandibular and parathyroid glands, S few scattered caries but no periapical lucencies, nonspecific calcification along the right lateral oropharynx, no definite stone seen within the territory of the submandibular gland ducts, no suspicious rashes lesion -Infectious disease and general surgery consulted, appreciate recommendations -s/p cricothyroidectomy -Will follow surgery to direction and treatment of injury -Per surgery may have mucosal injury -Intra-Op findings include post pharyngeal swelling and bruising -s/p Solu-Medrol -Per ID: if leucocytosis persists after being off steroids, obtain CT neck with IV contrast to rule out any abscess -Antibiotic therapy Zosyn x 21 days completed -COVID-19 PCR negative -f/u blood culture -Monitor WBC and temperature curve -s/p 5L normal saline bolus in ED, 7 L LR bolus in ICU Heme: Coagulopathy (resolved), supratherapeutic INR (resolved), acute blood loss anemia (resolved), possible component of hemorrhagic shock (resolved), leukocytosis (resolved) -Patient is on Coumadin at home -S/p 5 FFP, 8 PRBC, vitamin K x3 -Trend CBC -Presented with H/H of 10.3/34.6 and decreased to 6.7/22.4 -INR 8.18-> 4.55-> 2.1-> 1.23-> 1.16-> 1.31 -Transfuse hemoglobin less than 7 -Lovenox subq (prophylactic) -Monitor for signs of bleeding -SCDs to BLE while in bed Endo: h/o DM, gout -S/p Lantus 25 units x 1 -Lantus subcu, titrate as needed -Avoid hypoglycemia -SSI -Accu-Cheks q. 6hr Disposition: 03 [facility]M [facility]ACILITY Final Discharge Diagnosis (Prints w/discharge instructions): S/p cardiac arrest, h/o htn, PVD s/p stenting Right leg. Septic shock secondary to Possible Ludewig's angina secondary to dental caries Time spent for discharge: 35 mins Core Measure Documentation - Palliative Care Palliative Care/ Comfort Measures: Not Applicable - Core Measures Any of the following diagnoses?: none Exam - Physical Exam Narrative exam: - General Apperance Constitutional: comfortable - EENT EENT: PERRL, mucous membranes moist - Respiratory Respiratory: lungs clear, rhonchi AT BASES - Cardiovascular Cardiovascular: regular rate, normal S1, normal S2 Extremities: no peripheral edema bilat, no clubbing, cyanosis - Gastrointestinal Gastrointestinal: normoactive bowel sounds - Integumentary Integumentary: normal - Neurologic Cranial nerve examination: PERRL, EOMI, intact Speech examination: other (tracheostomy tube, no aphasia) Detailed motor examination: other (Bilateral proximal motor weakness upper> Lower, suppressed reflexes, no cranial weakness is noted neck muscles are intact) Motor examination - right side: 07/06: biceps - Constitutional Vitals: Temp Pulse Resp BP Pulse Ox 98.8 F 97 H 13 133/72 97 07/16/21 08:00 07/16/21 10:00 07/16/21 10:00 07/16/21 10:00 07/16/21 10:00 Plan Activity: advance as tolerated, fall precautions Diet: low fat, diabetic Wound: per your surgeon's advice, per wound nurse instructions Special Instructions: record daily weights, record daily BP diary, record blood sugar diary Plan of Treatment: Patient needs an outpatient follow up ENT Follow up with: CHRIS PEPPER MD [Primary Care Provider] - 7 Days RAYMON COURTNEY MD [Staff Physician] - 7 Days LYLA BERNSTEIN MD [Staff Physician] - 7 Days ENRIQUE VERGARA MD [Staff Physician] - 7 Days Prescriptions: traZODone [Desyrel] 100 mg PO QHS #30 tablet Insulin Glargine [Lantus VIAL] 35 units SUB-Q QHS #10 ml AtorvaSTATin [Lipitor] 20 mg PO QHS #30 tablet Melatonin [Melatonin 5MG TAB] 5 mg PO QHS #30 tablet Sennosides Oral Liqd [Senokot] 8.8 mg PO QHS #30 ml amLODIPine 5 mg PO QDAY #30 tablet hydrALAZINE [Apresoline TAB] 100 mg FEEDTUBE Q8HR #90 tab Fluticasone [Flonase] 1 spray NS QDAY #1 bottle Gabapentin 100 mg PO TID #90 capsule Baclofen [Lioresal] 10 mg PO BID PRN #10 tablet PRN Reason: Muscle pain Nystas/Diphen/Xyl Visc/Mylanta [Magic Mouthwash] 15 ml PO TID #100 ml HYDROcodone/APAP 5-325 [[place] 5-325 mg TAB] 1 each PO Q6H PRN #14 tablet PRN Reason: Pain, Moderate (4-6) Famotidine [Pepcid] 20 mg FEEDTUBE BID #60 tablet
[2021-07-16] MEDS ORDERED: POTASSIUM CHLORIDE 20 MEQ PACKET PO SCH (12:15)
[2021-07-16] MEDS ORDERED: levoFLOXacin 750 MG TAB PO SCH (13:00)
[2021-07-16 13:25] VITALS: BP 142/81
[2021-07-16] MEDS ORDERED: INSULIN GLARGINE 100 UNITS/ML SUB-Q SCH (22:00)
== END 2021-07-16 14:00 | DRG 3 ==
LOC: ED 13:43 → CC1 20:42 → 4A 06-30 14:26 → CC1 07-03 23:22 → IMCU 07-09 18:19
PROVIDERS: ADMIT Internal Medicine; ATTEND Internal Medicine
PROC: 30233K1 Transfusion of Nonautologous Frozen Plasma into Peripheral Vein, Percutaneous Approach (ICD-10-PCS; principal; 2021-06-11)
PROC: 0WJ60ZZ Inspection of Neck, Open Approach (ICD-10-PCS; 2021-06-11)
PROC: 30233N1 Transfusion of Nonautologous Red Blood Cells into Peripheral Vein, Percutaneous Approach (ICD-10-PCS; 2021-06-11)
PROC: 0BH17EZ Insertion of Endotracheal Airway into Trachea, Via Natural or Artificial Opening (ICD-10-PCS; 2021-06-11)
PROC: 5A1955Z Respiratory Ventilation, Greater than 96 Consecutive Hours (ICD-10-PCS; 2021-06-11)
PROC: 0BB Respiratory System, Excision (ICD-10-PCS; 2021-06-11)
PROC: 0CJS8ZZ Inspection of Larynx, Via Natural or Artificial Opening Endoscopic (ICD-10-PCS; 2021-06-11)
PROC: 06HY33Z Insertion of Infusion Device into Lower Vein, Percutaneous Approach (ICD-10-PCS; 2021-06-12)
PROC: B44FZZZ Ultrasonography of Right Lower Extremity Arteries (ICD-10-PCS; 2021-06-12)
PROC: 4A033R1 Measurement of Arterial Saturation, Peripheral, Percutaneous Approach (ICD-10-PCS; 2021-06-13)
PROC: 0W9930Z Drainage of Right Pleural Cavity with Drainage Device, Percutaneous Approach (ICD-10-PCS; 2021-06-13)
PROC: 0W9630Z Drainage of Neck with Drainage Device, Percutaneous Approach (ICD-10-PCS; 2021-06-14)
PROC: 02HV33Z Insertion of Infusion Device into Superior Vena Cava, Percutaneous Approach (ICD-10-PCS; 2021-06-16)
PROC: B548ZZA Ultrasonography of Superior Vena Cava, Guidance (ICD-10-PCS; 2021-06-16)
PROC: 0B110F4 Bypass Trachea to Cutaneous with Tracheostomy Device, Open Approach (ICD-10-PCS; 2021-06-19)
PROC: 0DH63UZ Insertion of Feeding Device into Stomach, Percutaneous Approach (ICD-10-PCS; 2021-06-19)
PROC: 0B21XFZ Change Tracheostomy Device in Trachea, External Approach (ICD-10-PCS; 2021-07-08)
DX: A41.9 Sepsis, unspecified organism (principal); J96.01 Acute respiratory failure with hypoxia; R65.21 Severe sepsis with septic shock; I46.9 Cardiac arrest, cause unspecified; N17.0 Acute kidney failure with tubular necrosis; K12.2 Cellulitis and abscess of mouth; J93.9 Pneumothorax, unspecified; D62 Acute posthemorrhagic anemia; E46 Unspecified protein-calorie malnutrition; D68.32 Hemorrhagic disorder due to extrinsic circulating anticoagulants; D68.9 Coagulation defect, unspecified; T88.4XXA Failed or difficult intubation, initial encounter; E11.9 Type 2 diabetes mellitus without complications; Z68.38 Body mass index [BMI] 38.0-38.9, adult; T45.515A Adverse effect of anticoagulants, initial encounter; M10.9 Gout, unspecified; Z20.822 Contact with and (suspected) exposure to COVID-19; I10 Essential (primary) hypertension; Z90.710 Acquired absence of both cervix and uterus; F32.9 Major depressive disorder, single episode, unspecified; M19.90 Unspecified osteoarthritis, unspecified site; E87.5 Hyperkalemia; E11.65 Type 2 diabetes mellitus with hyperglycemia; R33.9 Retention of urine, unspecified; G70.00 Myasthenia gravis without (acute) exacerbation; K02.9 Dental caries, unspecified
CPT/HCPCS: 36415; 36600; 70450; 70491; 71045; 71250; 76770; 80048; 80053; 81001; 82140; 82570; 82607; 82803; 82805; 82962; 83036; 83735; 84100; 84132; 84300; 84443; 84478; 84484; 85007; 85014; 85018; 85025; 85027; 85379; 85384; 85610; 85730; 86140; 86850; 86900; 86901; 86920; 87040; 93005; 93010; 93306; 93970; 94002; 94003; 94760; 99292; G0378; J1815; J2354; J3490; J7120; J7121; J7510; J7517; Q0162; Q9967; C8929; J0171; J0295; J0330; J0360; J0461; J0692; J1100; J1170; J1200; J1650; J1940; J2001; J2060; J2250; J2270; J2370; J2405; J2543; J2704; J2920; J2930; J2997; J3010; J3370; J3430; J3475; J3480; J7030; J7040; J7050; J7070; J7512; P9016; P9017; P9045; U0003